=== PATIENT | female | born 1945 | race Two or more races ===

== ENCOUNTER 2020-08-23 10:35 | Emergency (ER) | payer MEDICARE, MEDICAID, SELFPAY ==
[2020-08-23 10:43] VITALS: BP 198/97; PULSE 96; RESP 17; TEMP 36.7; O2SAT 99; BMI 29.2
== END 2020-08-23 11:15 | disposition left against medical advice (07) ==
LOC: HO.ED 11:04
PROVIDERS: Emergency Provider Emergency Medicine; PCP Internal Medicine Geriatric Medicine
DX: H92.02 Otalgia, left ear (principal)
CPT/HCPCS: 99281; 99282

== ENCOUNTER 2020-08-26 08:49 | Emergency (ER) | payer MEDICARE, MEDICAID, SELFPAY ==
[2020-08-26 08:57] VITALS: BP 158/80; PULSE 99; RESP 16; TEMP 36.8; O2SAT 97; BMI 27.4
--- NOTE | 2020-08-26 09:17 | ED_ITS ---
HPI - Ear Problem General Chief complaint: Ear Problems Stated complaint: 74-year-old female complaining of left ear pain, she states this is a chronic issue. she denies dizziness, ringing in her ears, trouble hearing, fever or fluid leaking from her ears. She does states she has an appointment in 2 days with an ear nose throat specialist, Dr. Li Time Seen by Provider: 08/26/20 09:33 Related Data Home Medications Medication Instructions Recorded Confirmed alprazolam 0.5 mg PO TID PRN 08/09/20 08/09/20 aripiprazole 2 mg PO BEDTIME 08/09/20 08/09/20 aspirin 81 mg PO DAILY 08/09/20 08/09/20 cholecalciferol (vitamin D3) 25 mcg PO BID 08/09/20 08/09/20 hydroxyzine HCl 50 mg PO TID PRN 08/09/20 08/09/20 linaclotide 145 mcg PO DAILY 08/09/20 08/09/20 lisinopril 40 mg PO DAILY 08/09/20 08/09/20 metoprolol succinate 50 mg PO DAILY 08/09/20 08/09/20 mirtazapine 45 mg PO BEDTIME 08/09/20 08/09/20 multivitamin 1 cap PO DAILY 08/09/20 08/09/20 omeprazole 20 mg PO DAILY 08/09/20 08/09/20 sertraline 50 mg PO BEDTIME 08/09/20 08/09/20 Allergies Allergy/AdvReac Type Severity Reaction Status Date / Time penicillin G [Penicillin G] Allergy Severe ITCHY/RASH Verified 08/24/20 14:28 Sulfa (Sulfonamide Allergy Severe ITCHY,RASH, Verified 08/24/20 14:28 Antibiotics) rash [Sulfa (Sulfonamides)] trimethoprim [From Bactrim] Allergy Severe HIVES Verified 08/24/20 14:28 penicillin V Allergy Unknown rash Verified 08/24/20 14:28 sulfacetamide Allergy Unknown unknown Verified 08/24/20 14:28 [From Sulfacet-R] sulfur [From Sulfacet-R] Allergy Unknown unknown Verified 08/24/20 14:28 Review of Systems Constitutional: Constitutional: Reports no additional constitutional complaints and Denies headache(s) ENT: Reports system reviewed and no additional complaints, except as documented, Reports as per HPI, Reports Normal hearing present, Denies vertigo, Denies dizziness, Denies ear discharge, Denies headache(s), Denies hearing loss, Denies disequilibrium, Denies tinnitus, Denies sinus pain and Denies sore throat Cardiovascular: Cardiovascular: Reports as per HPI Respiratory: Respiratory: Reports as per HPI and Reports no additional respiratory complaints Neurologic: Reports Normal hearing present, Denies vertigo, Denies dizziness, Denies headache(s) and Denies disequilibrium Allergic/Immunologic: Allergic/Immunologic: Reports no additional allergic/immunologic complaints [facility] Past Medical History Medical History Anxiety Arthritis Dementia High blood pressure Vertigo Surgical History No pertinent past surgical history Social History Social History Alcohol intake: unknown Smoked in Last 30 Days: No Advance Directives: No Advance Directives Information Provided: Yes Physical Exam Vital Signs: Vital Signs: Vital Signs Temp Pulse Resp BP Pulse Ox 08/26/20 08:57 98.2 F 99 16 158/80 H 97 Body Mass Index 27.4 Const: General: cooperative, healthy appearing, no acute distress and anxious Nutritional Appearance: obese Orientation/consciousness: patient oriented x3 HENMT: Head: Yes normal to inspection Ears: external ears normal, TM's normal bilaterally and other ( slight erythema in ear canal of left ear, no infection noted in either ea) General nose exam: Normal external nose present Face and sinus: Yes normal facial exam Mouth: Normal oral and palatal mucosa present Resp: Effort & Inspection: normal respiratory effort and able to speak in complete sentences Neuro: General: patient oriented x3 Cranial nerves: Yes Normal hearing present MDM - Ear MDM Narrative Medical decision making narrative: 74-year-old female presenting with chronic left ear pain, no active infection is noted upon exam. Will give some analgesic ear drops as patient has follow-up with ENT specialist on Friday. Discharge Plan Discharge Clinical Impression: Acute otalgia Qualifiers: Laterality: left Qualified Code(s): H92.02 - Otalgia, left ear Patient Disposition: Home, Self-Care Instructions: Earache (ED) Prescriptions: No Action alprazolam 0.5 mg Tablet 0.5 mg PO TID PRN (Reason: Anxiety) RF: 0 metoprolol succinate 50 mg Tablet Extended Release 24 Hr 50 mg PO DAILY RF: 0 hydroxyzine HCl 50 mg Tablet 50 mg PO TID PRN (Reason: Anxiety) RF: 0 mirtazapine 45 mg Tablet 45 mg PO BEDTIME RF: 0 aspirin 81 mg Tablet 81 mg PO DAILY RF: 0 lisinopril 40 mg Tablet 40 mg PO DAILY RF: 0 multivitamin Capsule 1 cap PO DAILY RF: 0 sertraline 50 mg Tablet 50 mg PO BEDTIME RF: 0 aripiprazole 2 mg Tablet 2 mg PO BEDTIME RF: 0 cholecalciferol (vitamin D3) 25 mcg (1,000 unit) Tablet 25 mcg PO BID RF: 0 omeprazole 20 mg Tablet,Delayed Release (Dr/Ec) 20 mg PO DAILY RF: 0 linaclotide 145 mcg Capsule 145 mcg PO DAILY RF: 0 Referrals: Kody Li [Physician] - 2 days ( please be sure to go to your appointment with ENT doctor on Friday, Dr. Li) Interventions: ED Discharge Assessment Last Done: 08/26/20 09:42 Discharge Date/Time: 08/26/20 09:44 Print Language: Croatian
== END 2020-08-26 09:44 | disposition home or self-care (01) ==
PROVIDERS: Emergency Provider Emergency Medicine; PCP Internal Medicine Geriatric Medicine
DX: H92.02 Otalgia, left ear (principal); I10 Essential (primary) hypertension; F41.9 Anxiety disorder, unspecified; F03.90 Unspecified dementia, unspecified severity, without behavioral disturbance, psychotic disturbance, mood disturbance, and anxiety; Z79.899 Other long term (current) drug therapy
CPT/HCPCS: 99282; 99283

== ENCOUNTER 2020-08-31 10:06 | Emergency (ER) | payer MEDICARE, MEDICAID, SELFPAY ==
[2020-08-31 10:19] VITALS: BP 189/79; PULSE 90; RESP 17; TEMP 35.9; O2SAT 96; BMI 26.6
--- NOTE | 2020-08-31 10:31 | ED_ITS ---
HPI - General Adult General Chief complaint: Ear Problems Stated complaint: SHAKING Time Seen by Provider: 08/31/20 10:19 Source: patient Mode of arrival: ambulatory Limitations: no limitations and language barrier History of Present Illness HPI narrative: 74-year-old female well known to this facility for multiple visits for similar reasons presented today with complaint of hand shaking after drinking coffee and feeling nervous . States she called her therapist [facility] come to the [facility]. States she normally gets Ativan and this helps. She otherwise denies any pain or discomfort. No vision changes. No headache, dizziness. No chest pain or shortness of breath. No recent illness. Otherwise has been at her usual health. Onset (ago): minute(s) Radiation: non-radiation Severity: mild Associated symptoms: denies other symptoms Treatments prior to arrival: none Related Data Home Medications Medication Instructions Recorded Confirmed alprazolam 0.5 mg PO TID PRN 08/09/20 08/09/20 aripiprazole 2 mg PO BEDTIME 08/09/20 08/09/20 aspirin 81 mg PO DAILY 08/09/20 08/09/20 cholecalciferol (vitamin D3) 25 mcg PO BID 08/09/20 08/09/20 hydroxyzine HCl 50 mg PO TID PRN 08/09/20 08/09/20 linaclotide 145 mcg PO DAILY 08/09/20 08/09/20 lisinopril 40 mg PO DAILY 08/09/20 08/09/20 metoprolol succinate 50 mg PO DAILY 08/09/20 08/09/20 mirtazapine 45 mg PO BEDTIME 08/09/20 08/09/20 multivitamin 1 cap PO DAILY 08/09/20 08/09/20 omeprazole 20 mg PO DAILY 08/09/20 08/09/20 sertraline 50 mg PO BEDTIME 08/09/20 08/09/20 Allergies Allergy/AdvReac Type Severity Reaction Status Date / Time penicillin G [Penicillin G] Allergy Severe ITCHY/RASH Verified 08/24/20 14:28 Sulfa (Sulfonamide Allergy Severe ITCHY,RASH, Verified 08/24/20 14:28 Antibiotics) rash [Sulfa (Sulfonamides)] trimethoprim [From Bactrim] Allergy Severe HIVES Verified 08/24/20 14:28 penicillin V Allergy Unknown rash Verified 08/24/20 14:28 sulfacetamide Allergy Unknown unknown Verified 08/24/20 14:28 [From Sulfacet-R] sulfur [From Sulfacet-R] Allergy Unknown unknown Verified 08/24/20 14:28 Review of Systems Review of Systems: Constitutional: No Weight loss, No Fever, No Chills, No Night Sweats, No Fatigue, No Malaise ENT/Mouth: No Hearing loss, No Ear Pain, No Nasal Congestion, No Sinus Pain, No Hoarseness, No sore throat, No Rhinorrhea, No Swallowing Difficulty Eyes: No Eye Pain, No Swelling, No Redness, No Foreign Body, No Discharge, No Vision Changes Cardiovascular: No Chest Pain, No SOB, No Dyspnea on Exertion, No Orthopnea, No Edema, No Palpitations Respiratory: No Cough, No Sputum, No Wheezing, No Smoke Exposure, No Dyspnea Gastrointestinal: No Nausea, No Vomiting, No Diarrhea, No Constipation, No abdominal Pain, No Hematochezia, No Melena Genitourinary: no irregular bleeding, No Dysuria, No Urinary Frequency, No Hematuria, No Urinary Incontinence, No Urgency, No Flank Pain, No Urinary Flow Changes, No Hesitancy Musculoskeletal: No joint pain, No Myalgias, No Joint Swelling Skin: No Skin Lesions, No rash Neuro: No Weakness, No Numbness, No Paresthesias, No Loss of Consciousness, No Dizziness, No Headache Psych: + Anxiety/Panic, No Depression, No SI/HI/AH/VH, No Social Issues Heme/Lymph: No Bruising, No Bleeding,No Lymphadenopathy Endocrine: No Polyuria, No Polydipsia, No Temperature Intolerance Yes all other systems are reviewed and are negative [facility] Past Medical History Attestation statement: The following information was validated with the patient. Medical History Anxiety Arthritis Dementia High blood pressure Vertigo Surgical History No pertinent past surgical history Social History Social History Alcohol intake: unknown Advance Directives: No Advance Directives Information Provided: No Physical Exam Vital Signs: Vital Signs: Vital Signs Temp Pulse Resp BP Pulse Ox 08/31/20 10:19 96.6 F L 90 17 189/79 H 96 Body Mass Index 26.6 Const: General: cooperative and healthy appearing; No acute distress or intoxicated appearing Nutritional Appearance: average body habitus Orientation/consciousness: patient oriented x3 HENMT: Head: Yes normal to inspection Ears: hearing grossly normal bilaterally Eyes: General: appearance normal, both eyes and all related structures Visual West: normal visual west by confrontation Neck: Neck: Yes normal visual inspection and No tender Thyroid: Thyroid normal Chest: Chest palpation & inspection: normal inspection of the chest Resp: Effort & Inspection: normal respiratory effort Cardio: Jugular venous distension: no JVD GI: Inspection: Yes normal to inspection Percussion: Yes normal to percussion Auscultation: normal bowel sounds : General: Yes no CVA tenderness Back/Spine/Pelvis: Back: no CVA tenderness Skin: General skin exam: no rashes or lesions noted Neuro: General: patient oriented x3 Extrem: General: Yes normal to inspection Course Course Course Narrative: Waqar Ruiz reviewed she does take alprazolam head feel for 90 tablets for 30 day supply on the 10 of August. She gets her medication dispense from visiting RN. Offers no other complaints. Given lorazepam here. States she has to go she has got people waiting for her and things to do. Discharge Plan Discharge Clinical Impression: Generalized anxiety disorder with panic attacks Patient Disposition: Home, Self-Care Instructions: Anxiety (ED) Additional Instructions: please follow-up with your primary care doctor Please follow up with therapist at [facility] if any concerns or worsening symptoms Thank you Prescriptions: No Action alprazolam 0.5 mg Tablet 0.5 mg PO TID PRN (Reason: Anxiety) RF: 0 metoprolol succinate 50 mg Tablet Extended Release 24 Hr 50 mg PO DAILY RF: 0 hydroxyzine HCl 50 mg Tablet 50 mg PO TID PRN (Reason: Anxiety) RF: 0 mirtazapine 45 mg Tablet 45 mg PO BEDTIME RF: 0 aspirin 81 mg Tablet 81 mg PO DAILY RF: 0 lisinopril 40 mg Tablet 40 mg PO DAILY RF: 0 multivitamin Capsule 1 cap PO DAILY RF: 0 sertraline 50 mg Tablet 50 mg PO BEDTIME RF: 0 aripiprazole 2 mg Tablet 2 mg PO BEDTIME RF: 0 cholecalciferol (vitamin D3) 25 mcg (1,000 unit) Tablet 25 mcg PO BID RF: 0 omeprazole 20 mg Tablet,Delayed Release (Dr/Ec) 20 mg PO DAILY RF: 0 linaclotide 145 mcg Capsule 145 mcg PO DAILY RF: 0 Referrals: Name,MD Nitin [Primary Care Provider] - 2 days
[2020-08-31] MEDS: LORazepam 0.5 MG TABLET PO (10:35)
== END 2020-08-31 10:40 | disposition home or self-care (01) ==
PROVIDERS: Emergency Provider Emergency Medicine; PCP Internal Medicine Geriatric Medicine
DX: F41.1 Generalized anxiety disorder (principal); F43.0 Acute stress reaction; F41.0 Panic disorder [episodic paroxysmal anxiety]; Z79.899 Other long term (current) drug therapy
CPT/HCPCS: 99283

== ENCOUNTER 2020-09-03 10:26 | Emergency (ER) | payer MEDICARE, MEDICAID, SELFPAY ==
[2020-09-03 10:39] VITALS: BP 180/82; PULSE 83; RESP 18; TEMP 36.3; O2SAT 97; BMI 29.5
--- NOTE | 2020-09-03 11:04 | ECG_ITS ---
Test Reason : CHEST PAIN Blood Pressure : / mmHG Vent. Rate : 078 BPM Atrial Rate : 078 BPM P-R Int : 160 ms QRS Dur : 092 ms QT Int : 380 ms P-R-T Axes : 019 -19 016 degrees QTc Int : 433 ms Normal sinus rhythm Voltage criteria for left ventricular hypertrophy Abnormal ECG When compared with ECG of 07-AUG-2020 01:46, No significant change was found Referred By: Cuco Amador Electronically Signed By:RONY ROCHA MD
--- NOTE | 2020-09-03 11:07 | ED_ITS ---
HPI - General Adult General Chief complaint: General Medical Stated complaint: HEADACHE Time Seen by Provider: 09/03/20 10:44 Source: patient Mode of arrival: ambulatory Limitations: no limitations History of Present Illness HPI narrative: patient presents to ED for anxiety. Patient states her anxiety medications are locked a special containing that can only be open by her PAY[employer] REPRESENTATIVE. Patient states PAYROLL REPRESENTATIVE did not come today so she was not able to get her anxiety medications. Patient has secondary complaint is left shoulder pain that is worsening on movement and radiating down left arm for the past 2 days. Patient denies any trauma, chest pain, shortness of breath, or paralysis. Patient states ringing of the left ear that is chronic for many years and not new. Patient states no dizziness, slurred speech, loss of vision, or paralysis of extremities. Patient states slight headache Related Data Home Medications Medication Instructions Recorded Confirmed alprazolam 0.5 mg PO TID PRN 08/09/20 08/09/20 aripiprazole 2 mg PO BEDTIME 08/09/20 08/09/20 aspirin 81 mg PO DAILY 08/09/20 08/09/20 cholecalciferol (vitamin D3) 25 mcg PO BID 08/09/20 08/09/20 hydroxyzine HCl 50 mg PO TID PRN 08/09/20 08/09/20 linaclotide 145 mcg PO DAILY 08/09/20 08/09/20 lisinopril 40 mg PO DAILY 08/09/20 08/09/20 metoprolol succinate 50 mg PO DAILY 08/09/20 08/09/20 mirtazapine 45 mg PO BEDTIME 08/09/20 08/09/20 multivitamin 1 cap PO DAILY 08/09/20 08/09/20 omeprazole 20 mg PO DAILY 08/09/20 08/09/20 sertraline 50 mg PO BEDTIME 08/09/20 08/09/20 Allergies Allergy/AdvReac Type Severity Reaction Status Date / Time penicillin G [Penicillin G] Allergy Severe ITCHY/RASH Verified 08/24/20 14:28 Sulfa (Sulfonamide Allergy Severe ITCHY,RASH, Verified 08/24/20 14:28 Antibiotics) rash [Sulfa (Sulfonamides)] trimethoprim [From Bactrim] Allergy Severe HIVES Verified 08/24/20 14:28 penicillin V Allergy Unknown rash Verified 08/24/20 14:28 sulfacetamide Allergy Unknown unknown Verified 08/24/20 14:28 [From Sulfacet-R] sulfur [From Sulfacet-R] Allergy Unknown unknown Verified 08/24/20 14:28 Review of Systems Review of Systems: Left shoulder pain going down arm that is worse on movement. Ringing in the ear that has been chronic for years. Slight headache. Patient states no chest pain, shortness of breath, slurred speech, loss of vision, paralysis of extremities, neck stiffness, dizziness, nausea, vomiting, abdominal pain, dysuria, hematuria, or flank pain. Constitutional: Constitutional: Reports as per HPI and Reports no additional constitutional complaints Eyes: Eyes: Reports as per HPI, Reports no additional eye complaints, Denies blind spots, Denies blurry vision, Denies exophthalmos, Denies change in vision, Denies decreased night vision, Denies loss of peripheral vision and Denies loss of vision ENT: Reports system reviewed and no additional complaints, except as documented, Reports as per HPI, Denies Normal hearing present, Denies vertigo, Denies dizziness, Denies dry mouth, Denies ear discharge, Denies facial pain and Denies neck pain Cardiovascular: Cardiovascular: Reports as per HPI, Reports no additional cardiovascular complaints, Denies Abdominal Cramping after Meds, Denies Abd ominal Distension, Denies acrocyanosis, Denies chest pain, Denies chest pain at rest, Denies chest pain with activity, Denies Epigastric Pain and Denies dyspnea Respiratory: Respiratory: Reports as per HPI, Reports no additional respiratory complaints, Denies no additional respiratory complaints, Denies c hange in phlegm color, Denies chest congestion, Denies pain on inspiration, Denies pain with cough and Denies dyspnea Gastrointestinal: Gastrointestinal: Reports as per HPI, Reports no additional gastrointestinal complaints, Denies abdominal pain, Denies belching, Denies melena, Denies bloating, Denies hematochezia, Denies change in stool character, Denies coffee ground emesis, Denies constipation and Denies GI cramping Musculoskeletal: Musculoskeletal: Reports no additional musculoskeletal complaints, Reports as per HPI, Denies abnormal gait, Denies back pain, Denies myalgias, Denies atrophy, Denies deformity, Denies arthralgias, Denies joint swelling, Denies limited range of motion, Denies loss of height, Denies muscle cramps, Denies muscle weakness and Denies neck pain Neurologic: Denies Normal hearing present, Denies abnormal gait, Denies vertigo, Denies dizziness and Denies loss of vision PMFSH Past Medical History Medical History Anxiety Arthritis Dementia High blood pressure Vertigo Surgical History No pertinent past surgical history Social History Social History Alcohol intake: never Smoking Status: Never smoker Use of substances other than those prescribed or required for medical reasons: No Advance Directives: No Advance Directives Information Provided: No Physical Exam Vital Signs: Vital Signs: Vital Signs Temp Pulse Resp BP Pulse Ox 09/03/20 12:27 98.5 F 73 18 170/85 H 09/03/20 10:39 97.3 F 83 18 180/82 H 97 Body Mass Index 29.5 Const: General: cooperative, healthy appearing, comfortable and no acute distress Orientation/consciousness: patient oriented x3 HENMT: Head: Yes normal to inspection Ears: hearing grossly normal bilaterally, external ears normal and TM's normal bilaterally Eyes: General: appearance normal, both eyes and all related structures Neck: Neck: Yes normal visual inspection, Yes full ROM, Yes no lymphadenopathy and Yes no meningeal signs Chest: Chest palpation & inspection: normal inspection of the chest and normal palpation of entire chest wall Resp: Effort & Inspection: normal respiratory effort, able to speak in complete sentences, no audible wheezes and no cough Auscultation: clear to auscultation bilaterally, no crackles, no rales, no rhonchi and no wheezes Cardio: Jugular venous distension: no JVD Heart sounds: S1 normal heart sound present and S2 normal heart sound present GI: Inspection: Yes normal to inspection and No abdominal wall ecchymosis : General: No CVA tenderness and Yes no CVA tenderness Back/Spine/Pelvis: Back: no CVA tenderness, No CVA tenderness and No back tenderness Skin: General skin exam: no rashes or lesions noted Neuro: General: patient oriented x3, no meningeal signs and CN's II-XI intact bilaterally Cranial nerves: Yes CN's II-XII intact bilaterally and No Normal hearing present Extrem: Other: Negative pronator drift. Negative for any facial droop. Patient has range of motion of all extremities. Negative nystagmus General: Yes normal to inspection and Yes full ROM Psych: Other: Anxiety Appearance: grossly normal, well kempt and not disheveled Course Course Course Narrative: patient has chronic tinnitus, ear exam does not indicate otitis media or externa. Patient refused left shoulder x-ray and states her pain is due to arthritis. But due to her age and history of diabetes patient will have EKG and a troponin to mention in the cardiac event. Patient given p.o. Ativan. Head CT not indicdated. negative for any focal deficits. Reevaluation(s) Reevaluation #1: Patient troponin negative. Patient's EKG no new changes. Patient once again refused left shoulder x-ray and states her pain is due to anxiety. Patient informed nusre she feels better and like to be discharged. History physical exam does not indicate stroke or meningitis. Patient is not altered to indicate encephalitis. Tinitus is chronic. Time: 12:27 Reevaluation #2: patient eloped from the ER before receiving her discharge papers. Time: 12:55 Medical Decision Making MDM Narrative Medical decision making narrative: anxiety, arthritic left shoulder pain, tendinitis. Lab Data Result diagrams: 09/03/20 11:41 09/03/20 11:41 Labs: Lab Results 09/03/20 09/03/20 09/03/20 Range/Units 11:41 11:41 11:41 WBC 13.7 H (4.8-10.8) X10*3/uL RBC 4.40 (4.20-5.50) X10*6/uL Hgb 11.7 L (12.0-16.0) g/dl Hct 36.2 L (37-47) % MCV 82.3 (80-98) fL MCH 26.6 L (27.0-33.0) pg MCHC 32.3 (31.0-35.0) g/dl RDW 12.8 (11.0-16.0) % Plt Count 347 (160-400) X10*3/uL MPV 8.4 L (9.4-12.3) fL Immature Gran % (Auto) 0.7 H (0.0-0.4) % Neut % (Auto) 77.2 H (45-73) % Lymph % (Auto) 11.2 L (20-40) % [place] % (Auto) 8.6 (2-11) % Eos % (Auto) 1.9 (0-4) % Baso % (Auto) 0.4 (0-2) % Lymph # (Auto) 1.5 (1.2-4.9) X10*3/uL [place] # (Auto) 1.2 (0.1-1.2) X10*3/uL Eos # (Auto) 0.3 (0.0-0.4) X10*3/uL Baso # (Auto) 0.1 (0.0-0.2) X10*3/uL Abs Immat Gran (auto) 0.10 H (0.00-0.03) X10*3/uL Absolute Neuts (auto) 10.5 H (2.0-8.3) X10*3/uL Absolute Nucleated RBC 0.000 (0.0-0.012) X10*3/uL Nucleated RBC % (auto) 0.0 (0.0-0.2) /100WBC PT 12.7 (10.8-13.0) SEC INR 1.1 (0.9-1.1) APTT 26.3 (24.1-38.0) SEC Sodium 138 (135-145) mmol/L Potassium 3.7 (3.3-5.1) mmol/l Chloride 99 (96-108) mmol/L Carbon Dioxide 30 H (22-29) mmol/L Anion Gap 13 (12-20) BUN 15 (9-16) mg/dL Creatinine 0.87 (0.5-1.4) mg/dL Estim Creat Clear Calc 55.6 Estimated GFR > 60 Random Glucose 95 (60-115) mg/dL Calcium 8.9 (8.4-10.2) mg/dL Total Bilirubin 0.5 (0.0-1.0) mg/dL AST 18 (5-31) U/L ALT 15 (0-31) U/L Alkaline Phosphatase 92 (39-117) U/L Troponin I High Sens (<3.5-17.0) ng/L Total Protein 7.5 (6.5-8.0) g/dL Albumin 4.0 (3.5-5.0) g/dL 09/03/ Range/Units 11:41 WBC (4.8-10.8) X10*3/uL RBC (4.20-5.50) X10*6/uL Hgb (12.0-16.0) g/dl Hct (37-47) % MCV (80-98) fL MCH (27.0-33.0) pg MCHC (31.0-35.0) g/dl RDW (11.0-16.0) % Plt Count (160-400) X10*3/uL MPV (9.4-12.3) fL Immature Gran % (Auto) (0.0-0.4) % Neut % (Auto) (45-73) % Lymph % (Auto) (20-40) % [place] % (Auto) (2-11) % Eos % (Auto) (0-4) % Baso % (Auto) (0-2) % Lymph # (Auto) (1.2-4.9) X10*3/uL [place] # (Auto) (0.1-1.2) X10*3/uL Eos # (Auto) (0.0-0.4) X10*3/uL Baso # (Auto) (0.0-0.2) X10*3/uL Abs Immat Gran (auto) (0.00-0.03) X10*3/uL Absolute Neuts (auto) (2.0-8.3) X10*3/uL Absolute Nucleated RBC (0.0-0.012) X10*3/uL Nucleated RBC % (auto) (0.0-0.2) /100WBC PT (10.8-13.0) SEC INR (0.9-1.1) APTT (24.1-38.0) SEC Sodium (135-145) mmol/L Potassium (3.3-5.1) mmol/l Chloride (96-108) mmol/L Carbon Dioxide (22-29) mmol/L Anion Gap (12-20) BUN (9-16) mg/dL Creatinine (0.5-1.4) mg/dL Estim Creat Clear Calc Estimated GFR Random Glucose (60-115) mg/dL Calcium (8.4-10.2) mg/dL Total Bilirubin (0.0-1.0) mg/dL AST (5-31) U/L ALT (0-31) U/L Alkaline Phosphatase (39-117) U/L Troponin I High Sens < 3.5 (<3.5-17.0) ng/L Total Protein (6.5-8.0) g/dL Albumin (3.5-5.0) g/dL ECG Data Interpretation: Normal sinus rhythm. Ventricular rate 78. MO interval 160, voltage criteria for left ventricular hypertrophy Discharge Plan Discharge Clinical Impression: Generalized anxiety disorder with panic attacks, Arthritis of shoulder Patient Disposition: Elopement Instructions: Anxiety (ED), Arthritis (ED) Additional Instructions: return to the ED for any chest pain, shortness of breath, blurry vision, dizziness, neck stiffness, fever, chills, paralysis of extremities, slurred speech, or any other concerning symptoms. Prescriptions: No Action alprazolam 0.5 mg Tablet 0.5 mg PO TID PRN (Reason: Anxiety) RF: 0 metoprolol succinate 50 mg Tablet Extended Release 24 Hr 50 mg PO DAILY RF: 0 hydroxyzine HCl 50 mg Tablet 50 mg PO TID PRN (Reason: Anxiety) RF: 0 mirtazapine 45 mg Tablet 45 mg PO BEDTIME RF: 0 aspirin 81 mg Tablet 81 mg PO DAILY RF: 0 lisinopril 40 mg Tablet 40 mg PO DAILY RF: 0 multivitamin Capsule 1 cap PO DAILY RF: 0 sertraline 50 mg Tablet 50 mg PO BEDTIME RF: 0 aripiprazole 2 mg Tablet 2 mg PO BEDTIME RF: 0 cholecalciferol (vitamin D3) 25 mcg (1,000 unit) Tablet 25 mcg PO BID RF: 0 omeprazole 20 mg Tablet,Delayed Release (Dr/Ec) 20 mg PO DAILY RF: 0 linaclotide 145 mcg Capsule 145 mcg PO DAILY RF: 0 Referrals: Nitin Echevarria MD [Primary Care Provider] - 2 days ( Anxiety. Left shoulder arthritis exacerbation) Discharge Date/Time: 09/03/20 12:37 Print Language: Palestinian
[2020-09-03] MEDS: Acetaminophen 325 MG TABLET 650 MG PO (11:18)
[2020-09-03] MEDS: LORazepam 1 MG TABLET PO (11:41)
[2020-09-03 11:48] LABS: Basophils Absolute Auto 0.1 X10*3/uL (0.0-0.2); Basophils Percent Auto 0.4 % (0-2); Eosinophils Absolute Auto 0.3 X10*3/uL (0.0-0.4); Eosinophils Percent Auto 1.9 % (0-4); Hematocrit 36.2 % (37-47); Hemoglobin 11.7 g/dl (12.0-16.0); Imm Gran Pct Auto 0.7 % (0.0-0.4); Lymphocytes Absolute Auto 1.5 X10*3/uL (1.2-4.9); Lymphocytes Percent Auto 11.2 % (20-40); MANUAL DIFF FLAG NO; Mean Corpuscular HGB Conc 32.3 g/dl (31.0-35.0); Mean Corpuscular Hemoglobin 26.6 pg (27.0-33.0); Mean Corpuscular Volume 82.3 fL (80-98); Mean Platelet Volume 8.4 fL (9.4-12.3); Monocytes Absolute Auto 1.2 X10*3/uL (0.1-1.2); Monocytes Percent Auto 8.6 % (2-11); Neutrophils Absolute Auto 10.5 X10*3/uL (2.0-8.3); Neutrophils Percent Auto 77.2 % (45-73); Platelet Count 347 X10*3/uL (160-400); Red Cell Distribution Width 12.8 % (11.0-16.0); White Blood Count 13.7 X10*3/uL (4.8-10.8)
[2020-09-03 11:54] LABS: INTERNATIONAL NORM RATIO 1.1 (0.9-1.1); Prothrombin Time 12.7 SEC (10.8-13.0)
[2020-09-03 11:56] LABS: Partial Thromboplastin Time 26.3 SEC (24.1-38.0)
[2020-09-03 12:16] LABS: Alanine Aminotransferase 15 U/L (0-31); Alkaline Phosphatase 92 U/L (39-117); Anion Gap 13 (12-20); Aspartate Amino Transferase 18 U/L (5-31); Bilirubin Total 0.5 mg/dL (0.0-1.0); Blood Urea Nitrogen 15 mg/dL (9-16); Calcium 8.9 mg/dL (8.4-10.2); Carbon Dioxide 30 mmol/L (22-29); Chloride 99 mmol/L (96-108); Creatinine Clr Calc Pharmacy 55.6; Estimated Glomerular Filt Rate > 60; Glucose Random 95 mg/dL (60-115); Potassium 3.7 mmol/l (3.3-5.1); Sodium 138 mmol/L (135-145); Total Protein 7.5 g/dL (6.5-8.0)
[2020-09-03 12:19] LABS: Troponin-I High Sensitivity < 3.5 ng/L (<3.5-17.0)
[2020-09-03 12:27] VITALS: BP 170/85; PULSE 73; RESP 18; TEMP 36.9
== END 2020-09-03 12:37 | disposition left against medical advice (07) ==
PROVIDERS: Physician Assistant; Emergency Provider Emergency Medicine; PCP Internal Medicine Geriatric Medicine
DX: F41.1 Generalized anxiety disorder (principal); F43.0 Acute stress reaction; M19.012 Primary osteoarthritis, left shoulder; R51.9 Headache, unspecified; Z79.899 Other long term (current) drug therapy
CPT/HCPCS: 36415; 80053; 84484; 85025; 85610; 85730; 93005; 99283

== ENCOUNTER 2020-09-16 07:53 | Emergency (ER) | payer MEDICARE, MEDICAID, SELFPAY ==
--- NOTE | 2020-09-16 08:03 | ECG_ITS ---
Test Reason : ANXIETY Blood Pressure : / mmHG Vent. Rate : 083 BPM Atrial Rate : 083 BPM P-R Int : 162 ms QRS Dur : 098 ms QT Int : 382 ms P-R-T Axes : 014 -23 015 degrees QTc Int : 448 ms Normal sinus rhythm Voltage criteria for left ventricular hypertrophy Abnormal ECG When compared with ECG of 03-SEP-2020 11:18, No significant change was found Referred By: Delilah Hernandez Electronically Signed By:RONY ROCHA MD
[2020-09-16 08:06] VITALS: BP 187/92; PULSE 85; RESP 20; TEMP 37.2; O2SAT 100; BMI 26.8
--- NOTE | 2020-09-16 08:15 | PC.NURSE ---
PT NOT FOUND AT BEDSIDE
--- NOTE | 2020-09-16 08:15 | ED.ANXIETY ---
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 Mode of arrival: ambulatory Limitations: no limitations History of Present Illness MD complaint: anxiety Onset (ago): month(s) Symptoms: extremity numbness/tingling Severity: mild Quality: constant Place: home History of similar episodes: Yes Provoking factors: none known Relieving factors: other (ativan) Exacerbating factors: nothing Associated symptoms: denies other symptoms Related Data Home Medications Medication Instructions Recorded Confirmed alprazolam 0.5 mg PO TID PRN 08/09/20 08/09/20 aripiprazole 2 mg PO BEDTIME 08/09/20 08/09/20 aspirin 81 mg PO DAILY 08/09/20 08/09/20 cholecalciferol (vitamin D3) 25 mcg PO BID 08/09/20 08/09/20 hydroxyzine HCl 50 mg PO TID PRN 08/09/20 08/09/20 linaclotide 145 mcg PO DAILY 08/09/20 08/09/20 lisinopril 40 mg PO DAILY 08/09/20 08/09/20 metoprolol succinate 50 mg PO DAILY 08/09/20 08/09/20 mirtazapine 45 mg PO BEDTIME 08/09/20 08/09/20 multivitamin 1 cap PO DAILY 08/09/20 08/09/20 omeprazole 20 mg PO DAILY 08/09/20 08/09/20 sertraline 50 mg PO BEDTIME 08/09/20 08/09/20 Previous Rx's Medication Instructions Recorded escitalopram oxalate 10 mg tablet 10 mg PO DAILY #30 tab 09/06/20 acetaminophen 325 mg PO QID PRN #30 cap 09/16/20 Allergies Allergy/AdvReac Type Severity Reaction Status Date / Time penicillin G [Penicillin G] Allergy Severe ITCHY/RASH Verified 08/24/20 14:28 Sulfa (Sulfonamide Allergy Severe ITCHY,RASH, Verified 08/24/20 14:28 Antibiotics) rash [Sulfa (Sulfonamides)] trimethoprim [From Bactrim] Allergy Severe HIVES Verified 08/24/20 14:28 penicillin V Allergy Unknown rash Verified 08/24/20 14:28 sulfacetamide Allergy Unknown unknown Verified 08/24/20 14:28 [From Sulfacet-R] sulfur [From Sulfacet-R] Allergy Unknown unknown Verified 08/24/20 14:28 Review of Systems Review of Systems: Constitutional : No Fever, No Chills ENT/Mouth : No Ear Pain, No Nasal Congestion, No sore throat Eyes: No Eye Pain, No Swelling, No Redness Cardiovascular : No Chest Pain, No SOB Respiratory : No Cough, No Sputum, No Dyspnea Gastrointestinal : No Nausea, No Vomiting, No Diarrhea, No Hematochezia, No Melena Genitourinary : No Dysuria, No Urinary Frequency, No Hematuria Musculoskeletal : No Myalgias Skin : No Skin Lesions, No rash Neuro : No Weakness, No Numbness, No Paresthesias, No Dizziness, No Headache, states her hands are shaking Psych : positive Anxiety, positive Depression, no SI/HI PMFSH Past Medical History Attestation statement: The following information was validated with the patient. Medical History Anxiety Arthritis Dementia High blood pressure Vertigo Surgical History No pertinent past surgical history Social History Social History Alcohol intake: never Smoking Status: Never smoker Advance Directives: No Advance Directives Information Provided: No Physical Exam Vital Signs: Vital Signs: Last Vital Signs Temp 98.9 F 09/16/20 08:06 Pulse 85 09/16/20 08:06 Resp 20 09/16/20 08:06 BP 187/92 H 09/16/20 08:06 Pulse Ox 100 09/16/20 08:06 Body Mass Index 26.8 Appearance: Alert. Oriented X3. No acute distress. slightly anxious Eyes: Pupils equal, round and reactive to light. ENT: Pharynx normal. Neck: Normal inspection. Neck supple. CVS: Normal heart rate and rhythm. Pulses normal. Respiratory: No respiratory distress. Breath sounds normal. Abdomen: Soft and nontender. Skin: Skin warm and dry. Normal skin color. Normal skin turgor. Extremities: No lower extremity edema. No calf ttp Neuro: Oriented X 3. No motor deficit. No sensory deficit. MDM - Anxiety MDM Narrative Medical decision making narrative: 74 yo female with anxiety here requesting PO ativan because her CRITICAL CARE PHYSICIAN isn't here in the AM yet, also wants script for tylenol, on arrival asking to leave [place] after medications, denies any other complaints Discharge Plan Discharge Clinical Impression: Generalized anxiety disorder with panic attacks Patient Disposition: Home, Self-Care Instructions: Anxiety (ED) Additional Instructions: return to ED for any worsening symptoms or concerns Prescriptions: New acetaminophen 325 mg capsule 325 mg PO QID PRN (Reason: fever or pain) Qty: 30 RF: 0 No Action escitalopram oxalate 10 mg tablet 10 mg PO DAILY Qty: 30 RF: 1 alprazolam 0.5 mg Tablet 0.5 mg PO TID PRN (Reason: Anxiety) RF: 0 metoprolol succinate 50 mg Tablet Extended Release 24 Hr 50 mg PO DAILY RF: 0 hydroxyzine HCl 50 mg Tablet 50 mg PO TID PRN (Reason: Anxiety) RF: 0 mirtazapine 45 mg Tablet 45 mg PO BEDTIME RF: 0 aspirin 81 mg Tablet 81 mg PO DAILY RF: 0 lisinopril 40 mg Tablet 40 mg PO DAILY RF: 0 multivitamin Capsule 1 cap PO DAILY RF: 0 sertraline 50 mg Tablet 50 mg PO BEDTIME RF: 0 aripiprazole 2 mg Tablet 2 mg PO BEDTIME RF: 0 cholecalciferol (vitamin D3) 25 mcg (1,000 unit) Tablet 25 mcg PO BID RF: 0 omeprazole 20 mg Tablet,Delayed Release (Dr/Ec) 20 mg PO DAILY RF: 0 linaclotide 145 mcg Capsule 145 mcg PO DAILY RF: 0 Referrals: Name,MD Nitin [Primary Care Provider] - 2 days (if not better) Print Language: Czech
== END 2020-09-16 08:20 | disposition home or self-care (01) ==
PROVIDERS: Emergency Provider Emergency Medicine; PCP Internal Medicine Geriatric Medicine
DX: F41.1 Generalized anxiety disorder (principal); R51.9 Headache, unspecified; F43.0 Acute stress reaction; Z79.899 Other long term (current) drug therapy
CPT/HCPCS: 93005; 99283

== ENCOUNTER 2020-09-21 13:46 | Emergency (ER) | payer MEDICARE, MEDICAID, SELFPAY ==
--- NOTE | 2020-09-21 14:12 | ED.PSYCH ---
HPI - Psych General Chief Complaint: Anxiety Stated Complaint: fingers numb Time Seen by Provider: 09/21/20 14:08 Source: patient Mode of arrival: ambulatory Limitations: language barrier (Italian-speaking) History of Present Illness HPI Narrative: 74-year-old female presenting to the ED for anxiety. Presents to the ER frequently sometimes multiple times per day in attempts to get more anxiety medications. Patient denies any other symptoms including SI/HI/auditory visual hallucinations or thoughts of self injury. Reports that she feels safe at home. Related Data Home Medications Medication Instructions Recorded Confirmed alprazolam 0.5 mg PO TID PRN 08/09/20 08/09/20 aripiprazole 2 mg PO BEDTIME 08/09/20 08/09/20 aspirin 81 mg PO DAILY 08/09/20 08/09/20 cholecalciferol (vitamin D3) 25 mcg PO BID 08/09/20 08/09/20 hydroxyzine HCl 50 mg PO TID PRN 08/09/20 08/09/20 linaclotide 145 mcg PO DAILY 08/09/20 08/09/20 lisinopril 40 mg PO DAILY 08/09/20 08/09/20 metoprolol succinate 50 mg PO DAILY 08/09/20 08/09/20 mirtazapine 45 mg PO BEDTIME 08/09/20 08/09/20 multivitamin 1 cap PO DAILY 08/09/20 08/09/20 omeprazole 20 mg PO DAILY 08/09/20 08/09/20 sertraline 50 mg PO BEDTIME 08/09/20 08/09/20 Previous Rx's Medication Instructions Recorded escitalopram oxalate 10 mg tablet 10 mg PO DAILY #30 tab 09/06/20 acetaminophen 325 mg PO QID PRN #30 cap 09/16/20 Allergies Allergy/AdvReac Type Severity Reaction Status Date / Time penicillin G [Penicillin G] Allergy Severe ITCHY/RASH Verified 08/24/20 14:28 Sulfa (Sulfonamide Allergy Severe ITCHY,RASH, Verified 08/24/20 14:28 Antibiotics) rash [Sulfa (Sulfonamides)] trimethoprim [From Bactrim] Allergy Severe HIVES Verified 08/24/20 14:28 penicillin V Allergy Unknown rash Verified 08/24/20 14:28 sulfacetamide Allergy Unknown unknown Verified 08/24/20 14:28 [From Sulfacet-R] sulfur [From Sulfacet-R] Allergy Unknown unknown Verified 08/24/20 14:28 Review of Systems Review of Systems: Constitutional : No Fever, No Chills ENT/Mouth : No Ear Pain, No Nasal Congestion, No sore throat Eyes: No Eye Pain, No Swelling, No Redness Cardiovascular : No Chest Pain, No SOB Respiratory : No Cough, No Sputum, No Dyspnea Gastrointestinal : No ingestions, No Nausea, No Vomiting, No Diarrhea, No Hematochezia, No Melena Genitourinary : No Dysuria, No Urinary Frequency, No Hematuria Musculoskeletal : No Myalgias Skin : No Skin Lesions, No rash Neuro : No Weakness, No Numbness, No Paresthesias, No Dizziness, No Headache Psych : + Anxiety, No Depression, No SI, No No thoughts of self injury, No HI, No AVH, Heme/Lymph: No Lymphadenopathy Endocrine : No Polyuria, No Polydipsia Yes all other systems are reviewed and are negative [facility] Past Medical History Attestation statement: The following information was validated with the patient. Medical History Anxiety Arthritis Dementia High blood pressure Vertigo Surgical History No pertinent past surgical history Social History Social History Alcohol intake: never Smoking Status: Never smoker Advance Directives: No Advance Directives Information Provided: Yes Physical Exam Vital Signs: Vital Signs: vital signs have been reviewed as normal and appeared to be correct. Blood pressure normal. Heart rate normal. Respiration rate normal. Temperature normal. Oxygen saturation normal. Appearance: Alert. Oriented X3. No acute distress. Head: Normal external exam. Normocephalic. Atraumatic. No Gomes signs noted. No raccoon eyes noted Eyes: PERRLA. EOMI. Conjunctiva and sclera normal. Eyelids normal. ENT: EAC normal. TM's Normal. Pharynx normal. Uvula midline. Moist mucous membranes. No trismus noted. No drooling noted. No muffled voice noted. Neck: Normal inspection. Neck supple. FROM. No adenopathy. Thyroid Normal. No meningeal signs. No neck mass noted. CVS: Normal heart rate and rhythm. Heart sound normal. No murmurs noted. Pulses normal throughout. Respiratory: No respiratory distress. Painless inspiration. Breath sounds normal. No wheezes/rales/rhonchi noted. Chest nontender. No accessory muscle usage noted or decreased air movement noted. Abdomen: Soft and nontender. Bowel sounds normal in all 4 quadrants. No distention noted. No organomegaly noted. No visible injury noted. Back: No CVA tenderness. Full range of motion noted. Skin: Skin warm and dry. Normal skin color. Normal skin turgor. No rashes/lesions/lacerations noted. Extremities: No lower extremity edema. Extremities exhibit normal range of motion. Extremities nontender. Neuro: Oriented X 3. No motor deficit. No sensory deficit. Reflexes normal. Psych: Appearance grossly normal, well-kept, mental status normal, speech and movement normal, speech clear, patient appears very sad and anxious along with the press. Is cooperative. Normal thought process. Normal thought content. Normal good insight. Judgment good. Course Course Course Narrative: 74-year-old female presenting to the ED asking for anxiety medications. She presents frequently for anxiety medications. Reports she has a VASCULAR TECHNOLOGIST at home who admitted sirs her medications. Feel safe at home. Denies any SI/HI/auditory visual hallucinations and thoughts of self-injury. Will give 0.5 mg of Xanax and then DC home with instructions to return if any new or worsening symptoms to follow-up with primary care provider. Patient understands agrees the plan. MDM - Psych Restraints Face to Face Assessment: Face to Face Assessment: Current Situation: After assessment of the patient, a review of the pertinent medical record and a discussion with nursing staff, I feel the patient requires a restrain intervention. Reaction To: [] Medical Condition: [] Behavioral State: [] Continued Need: [] Medical Records Attestation: I reviewed the patient's medical records. Discharge Plan Discharge Clinical Impression: Generalized anxiety disorder with panic attacks Patient Disposition: Home, Self-Care Instructions: Anxiety (ED) Prescriptions: No Action escitalopram oxalate 10 mg tablet 10 mg PO DAILY Qty: 30 RF: 1 acetaminophen 325 mg capsule 325 mg PO QID PRN (Reason: fever or pain) Qty: 30 RF: 0 alprazolam 0.5 mg Tablet 0.5 mg PO TID PRN (Reason: Anxiety) RF: 0 metoprolol succinate 50 mg Tablet Extended Release 24 Hr 50 mg PO DAILY RF: 0 hydroxyzine HCl 50 mg Tablet 50 mg PO TID PRN (Reason: Anxiety) RF: 0 mirtazapine 45 mg Tablet 45 mg PO BEDTIME RF: 0 aspirin 81 mg Tablet 81 mg PO DAILY RF: 0 lisinopril 40 mg Tablet 40 mg PO DAILY RF: 0 multivitamin Capsule 1 cap PO DAILY RF: 0 sertraline 50 mg Tablet 50 mg PO BEDTIME RF: 0 aripiprazole 2 mg Tablet 2 mg PO BEDTIME RF: 0 cholecalciferol (vitamin D3) 25 mcg (1,000 unit) Tablet 25 mcg PO BID RF: 0 omeprazole 20 mg Tablet,Delayed Release (Dr/Ec) 20 mg PO DAILY RF: 0 linaclotide 145 mcg Capsule 145 mcg PO DAILY RF: 0 Referrals: Name,MD Nitin [Primary Care Provider] - 2 days Print Language: Italian
[2020-09-21 14:15] VITALS: BP 150/65; PULSE 110; RESP 18; TEMP 36.1; O2SAT 97; BMI 27.4
[2020-09-21] MEDS: Acetaminophen 325 MG TABLET 650 MG PO (14:22)
[2020-09-21] MEDS: ALPRAZolam 0.5 MG TABLET PO (14:22)
== END 2020-09-21 14:25 | disposition home or self-care (01) ==
PROVIDERS: Emergency Provider Emergency Medicine; PCP Internal Medicine Geriatric Medicine
DX: F41.1 Generalized anxiety disorder (principal); F43.0 Acute stress reaction; F41.0 Panic disorder [episodic paroxysmal anxiety]; Z79.899 Other long term (current) drug therapy
CPT/HCPCS: 99283

== ENCOUNTER 2020-09-28 04:32 | Emergency (ER) | payer MEDICARE, MEDICAID, SELFPAY ==
[2020-09-28 04:52] VITALS: BP 159/87; PULSE 89; RESP 20; TEMP 36.2; O2SAT 98; BMI 53.6
--- NOTE | 2020-09-28 05:29 | PC.NURSE ---
PT NOT THERE WHEN THIS RN RETURNED TO CHECK IN.
--- NOTE | 2020-09-28 05:30 | ED_ITS ---
HPI - Ear Problem General Chief complaint: Ear Problems Stated complaint: EAR PAIN Time Seen by Provider: 09/28/20 05:29 Source: patient Mode of arrival: ambulatory Limitations: no limitations History of Present Illness HPI Narrative: This is a 75-year-old female known to this emergency department for recurrent visits and complaints ear pain but this is not associated with fevers, chills, loss of hearing, tinnitus, dizziness. In addition, patient states that she is feeling a little anxious because of her symptoms and would like a little something . Related Data Home Medications Medication Instructions Recorded Confirmed alprazolam 0.5 mg PO TID PRN 08/09/20 08/09/20 aripiprazole 2 mg PO BEDTIME 08/09/20 08/09/20 aspirin 81 mg PO DAILY 08/09/20 08/09/20 cholecalciferol (vitamin D3) 25 mcg PO BID 08/09/20 08/09/20 hydroxyzine HCl 50 mg PO TID PRN 08/09/20 08/09/20 linaclotide 145 mcg PO DAILY 08/09/20 08/09/20 lisinopril 40 mg PO DAILY 08/09/20 08/09/20 metoprolol succinate 50 mg PO DAILY 08/09/20 08/09/20 mirtazapine 45 mg PO BEDTIME 08/09/20 08/09/20 multivitamin 1 cap PO DAILY 08/09/20 08/09/20 omeprazole 20 mg PO DAILY 08/09/20 08/09/20 sertraline 50 mg PO BEDTIME 08/09/20 08/09/20 Previous Rx's Medication Instructions Recorded escitalopram oxalate 10 mg tablet 10 mg PO DAILY #30 tab 09/06/20 acetaminophen 325 mg PO QID PRN #30 cap 09/16/20 Allergies Allergy/AdvReac Type Severity Reaction Status Date / Time penicillin G [Penicillin G] Allergy Severe ITCHY/RASH Verified 08/24/20 14:28 Sulfa (Sulfonamide Allergy Severe ITCHY,RASH, Verified 08/24/20 14:28 Antibiotics) rash [Sulfa (Sulfonamides)] trimethoprim [From Bactrim] Allergy Severe HIVES Verified 08/24/20 14:28 penicillin V Allergy Unknown rash Verified 08/24/20 14:28 sulfacetamide Allergy Unknown unknown Verified 08/24/20 14:28 [From Sulfacet-R] sulfur [From Sulfacet-R] Allergy Unknown unknown Verified 08/24/20 14:28 Review of Systems Review of Systems: Pertinent positives and negatives as stated in HPI 10 point review of systems otherwise negative. [facility] Past Medical History Source: nursing notes reviewed Medical History Anxiety Arthritis Dementia High blood pressure Vertigo Surgical History No pertinent past surgical history Social History Social History Alcohol intake: never Smoking Status: Never smoker Advance Directives: No Advance Directives Information Provided: No Physical Exam Vital Signs: Vital Signs: Last Vital Signs Temp 97.1 F 09/28/20 04:52 Pulse 89 09/28/20 04:52 Resp 20 09/28/20 04:52 BP 159/87 H 09/28/20 04:52 Pulse Ox 98 09/28/20 04:52 Body Mass Index 53.6 VITAL SIGNS: Reviewed. GENERAL: Well developed, well nourished, in no acute distress. HEAD: Normocephalic/atraumatic, EYES: PERRLA, EOMI intact without pain, no nystagmus/pallor/icterus noted EARS: Ext canals without abnormality, TMs non-bulging and non-erythematous NOSE: Nares patent bilateral OROPHARYNX: no oral lesions noted, posterior pharynx clear and non-erythematous without noted tonsillar enlargement/erythema/exudates NECK: Supple, no adenopathy LUNGS: Normal breath sounds. No adventitious sounds or accessory muscle use. SpO2<98> CARDIOVASCULAR: Regular rate and rhythm without noted murmurs, no JVD or lower extremity edema. ABDOMEN: Soft, non-tender, non-distended with bowel sounds. No rigidity. No guarding. No palpable masses or hernias noted MUSCULOSKELETAL: No tenderness, deformities, or effusions noted on gross inspection. EXTREMITIES: No cyanosis, clubbing or edema. SKIN: Inspection of the skin reveals no rashes, ulcerations, jaundice, pallor, or petechiae. NEUROLOGIC: Alert and oriented x 4. Strength and sensation to light touch were grossly intact x 4. Course Course Course Narrative: This is a 75-year-old female with history clinical presentation consistent with likely viral etiology the absence of being febrile and there are no concerns for neurologic etiologies for the ear pain. Discharge Plan Discharge Clinical Impression: Ear pain Patient Disposition: Elopement Prescriptions: No Action escitalopram oxalate 10 mg tablet 10 mg PO DAILY Qty: 30 RF: 1 acetaminophen 325 mg capsule 325 mg PO QID PRN (Reason: fever or pain) Qty: 30 RF: 0 alprazolam 0.5 mg Tablet 0.5 mg PO TID PRN (Reason: Anxiety) RF: 0 metoprolol succinate 50 mg Tablet Extended Release 24 Hr 50 mg PO DAILY RF: 0 hydroxyzine HCl 50 mg Tablet 50 mg PO TID PRN (Reason: Anxiety) RF: 0 mirtazapine 45 mg Tablet 45 mg PO BEDTIME RF: 0 aspirin 81 mg Tablet 81 mg PO DAILY RF: 0 lisinopril 40 mg Tablet 40 mg PO DAILY RF: 0 multivitamin Capsule 1 cap PO DAILY RF: 0 sertraline 50 mg Tablet 50 mg PO BEDTIME RF: 0 aripiprazole 2 mg Tablet 2 mg PO BEDTIME RF: 0 cholecalciferol (vitamin D3) 25 mcg (1,000 unit) Tablet 25 mcg PO BID RF: 0 omeprazole 20 mg Tablet,Delayed Release (Dr/Ec) 20 mg PO DAILY RF: 0 linaclotide 145 mcg Capsule 145 mcg PO DAILY RF: 0 Discharge Date/Time: 09/28/20 05:31
== END 2020-09-28 05:31 | disposition left against medical advice (07) ==
PROVIDERS: Emergency Provider Student in an Organized Health Care Education/Training Program; PCP Internal Medicine Geriatric Medicine
DX: H92.03 Otalgia, bilateral (principal); Z79.899 Other long term (current) drug therapy
CPT/HCPCS: 99283

== ENCOUNTER 2020-09-28 08:50 | Emergency (ER) | payer MEDICARE, MEDICAID, SELFPAY | END 2020-09-28 10:05 | disposition left against medical advice (07) | PROVIDERS: Emergency Provider Emergency Medicine; PCP Internal Medicine Geriatric Medicine | DX: R42 Dizziness and giddiness (principal) | CPT/HCPCS: 99281 ==

== ENCOUNTER 2020-09-30 04:03 | Emergency (ER) | payer MEDICARE, MEDICAID, SELFPAY ==
[2020-09-30 04:07] VITALS: BP 164/78; PULSE 81; RESP 18; TEMP 37.4; O2SAT 99; BMI 22.0
--- NOTE | 2020-09-30 04:31 | ED.GENADULT ---
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 Mode of arrival: ambulatory Limitations: no limitations History of Present Illness complaint: chronic dizziness and ringing in ear Onset (ago): year(s) Location: head Radiation: non-radiation Severity: moderate Relieving factors: none Exacerbating factors: none Associated symptoms: other (states her 4 fingers on her L hand feel tingling but she can move them just fine - states this happened yesterday) Treatments prior to arrival: other (took her antivert and ear drops) Related Data Home Medications Medication Instructions Recorded Confirmed alprazolam 0.5 mg PO TID PRN 08/09/20 08/09/20 aripiprazole 2 mg PO BEDTIME 08/09/20 08/09/20 cholecalciferol (vitamin D3) 25 mcg PO BID 08/09/20 08/09/20 hydroxyzine HCl 50 mg PO TID PRN 08/09/20 08/09/20 linaclotide 145 mcg PO DAILY 08/09/20 08/09/20 lisinopril 40 mg PO DAILY 08/09/20 08/09/20 mirtazapine 45 mg PO BEDTIME 08/09/20 08/09/20 multivitamin 1 cap PO DAILY 08/09/20 08/09/20 omeprazole 20 mg PO DAILY 08/09/20 08/09/20 sertraline 50 mg PO BEDTIME 08/09/20 08/09/20 Previous Rx's Medication Instructions Recorded escitalopram oxalate 10 mg tablet 10 mg PO DAILY #30 tab 09/06/20 acetaminophen 325 mg PO QID PRN #30 cap 09/16/20 aspirin 81 mg tablet,delayed 81 mg PO BEDTIME #90 tab 09/28/20 release metoprolol succinate 50 mg 50 mg PO DAILY #90 tab 09/28/20 tablet,extended release 24 hr Allergies Allergy/AdvReac Type Severity Reaction Status Date / Time penicillin G [Penicillin G] Allergy Severe ITCHY/RASH Verified 09/30/20 04:44 Sulfa (Sulfonamide Allergy Severe ITCHY,RASH, Verified 09/30/20 04:44 Antibiotics) rash [Sulfa (Sulfonamides)] trimethoprim [From Bactrim] Allergy Severe HIVES Verified 09/30/20 04:44 penicillin V Allergy Unknown rash Verified 09/30/20 04:44 sulfacetamide Allergy Unknown unknown Verified 09/30/20 04:44 [From Sulfacet-R] sulfur [From Sulfacet-R] Allergy Unknown unknown Verified 09/30/20 04:44 Review of Systems Review of Systems: Constitutional : No Weight loss, No Fever, No Chills ENT/Mouth : No sore throat, No Rhinorrhea Eyes: No Eye Pain, No Swelling Cardiovascular : no Chest Pain, no SOB, no Dyspnea on Exertion, No Orthopnea, No Edema, No Palpitations Respiratory : No Cough, No Sputum Gastrointestinal : no Nausea, No Vomiting, No Diarrhea, No abdominal Pain, No Hematochezia, No Melena Genitourinary : No Dysuria, No Urinary Frequency Musculoskeletal : No joint pain, No Myalgias, No Joint Swelling Skin : No Skin Lesions, No rash Neuro : No Weakness, pos Numbness, pos Dizziness, No Headache Psych : No Anxiety/Panic, No Depression Heme/Lymph: No Bruising, No Lymphadenopathy Endocrine : No Polyuria, No Polydipsia All other systems reviewed and are negative [facility] Past Medical History Attestation statement: The following information was validated with the patient. Medical History Anxiety Arthritis Dementia High blood pressure Vertigo Surgical History No pertinent past surgical history Social History Social History Alcohol intake: never Smoking Status: Never smoker Advance Directives: No Physical Exam Vital Signs: Vital Signs: Last Vital Signs Temp 99.4 F 09/30/20 04:07 Pulse 81 09/30/20 04:07 Resp 18 09/30/20 04:07 BP 164/78 H 09/30/20 04:07 Pulse Ox 99 09/30/20 04:07 Body Mass Index 22.0 Appearance: Alert. Oriented X3. No acute distress. Eyes: Pupils equal, round and reactive to light. ENT: Pharynx normal. L ear no perforation, chronic scarring noted, not bulging, almost retracted Neck: Normal inspection. Neck supple. CVS: Normal heart rate and rhythm. Pulses normal. Respiratory: No respiratory distress. Breath sounds normal. Abdomen: Soft and nontender. Skin: Skin warm and dry. Normal skin color. Normal skin turgor. Extremities: No lower extremity edema. No calf ttp Neuro: Oriented X 3. No motor deficit. No sensory deficit. steady gait, no ataxia Course Course Course Narrative: patient with negative workup at this time, stable for DC asking for sleeping pills again she is 75 yo and is already on benzodiazepines, atarax - does not need any more sedating drugs at this time Medical Decision Making MDM Narrative Medical decision making narrative: 75 yo female with chronic ear issues/infections vertigo and dementia comes in with c/o chronic dizziness and ringing in her ears for years - no change from baseline and she is taking her antivert and ear drops, she also c/o L hand tingling but she is NV intact, she has normal gait no ataxia, she agrees to labs and urine sample at this time, patient is chronically seen in ED for various complaints and generally either LWTs or elopes from the ED. I doubt a stroke at this time given her c/o L hand tingling in just her 4 fingertips with a normal exam. Lab Data Result diagrams: 09/30/20 04:36 09/30/20 04:36 Labs: Lab Results 09/30/20 09/30/20 09/30/20 Range/Units 04:36 04:36 04:53 WBC 8.6 (4.8-10.8) X10*3/uL RBC 4.39 (4.20-5.50) X10*6/uL Hgb 11.6 L (12.0-16.0) g/dl Hct 35.9 L (37-47) % MCV 81.8 (80-98) fL MCH 26.4 L (27.0-33.0) pg MCHC 32.3 (31.0-35.0) g/dl RDW 13.7 (11.0-16.0) % Plt Count 341 (160-400) X10*3/uL MPV 8.3 L (9.4-12.3) fL Immature Gran % (Auto) 0.4 (0.0-0.4) % Neut % (Auto) 63.7 (45-73) % Lymph % (Auto) 26.2 (20-40) % [place] % (Auto) 8.3 (2-11) % Eos % (Auto) 0.7 (0-4) % Baso % (Auto) 0.7 (0-2) % Lymph # (Auto) 2.2 (1.2-4.9) X10*3/uL [place] # (Auto) 0.7 (0.1-1.2) X10*3/uL Eos # (Auto) 0.1 (0.0-0.4) X10*3/uL Baso # (Auto) 0.1 (0.0-0.2) X10*3/uL Abs Immat Gran (auto) 0.03 (0.00-0.03) X10*3/uL Absolute Neuts (auto) 5.5 (2.0-8.3) X10*3/uL Absolute Nucleated RBC 0.000 (0.0-0.012) X10*3/uL Nucleated RBC % (auto) 0.0 (0.0-0.2) /100WBC Sodium 134 L (135-145) mmol/L Potassium 3.9 (3.3-5.1) mmol/l Chloride 97 (96-108) mmol/L Carbon Dioxide 29 (22-29) mmol/L Anion Gap 12 (12-20) BUN 22 H (9-16) mg/dL Creatinine 1.02 (0.5-1.4) mg/dL Estim Creat Clear Calc 46.6 Estimated GFR 53 Random Glucose 113 (60-115) mg/dL Calcium 8.9 (8.4-10.2) mg/dL Urine Color YELLOW Urine Appearance CLEAR Urine pH 6.0 (5.0-8.0) Ur Specific [place] 1.025 (1.005-1.025) Urine Protein NEG (NEG-TRACE) MG/DL Urine Glucose (UA) NEG (NEG) MG/DL Urine Ketones NEG (NEG) MG/DL Urine Blood NEG (NEG) Urine Nitrite NEG (NEG) Ur Leukocyte Esterase TRACE H (NEG) Urine RBC 0-2 (0) /HPF Urine WBC 0-2 (0-4) /HPF Ur Squamous Epith Cells TRACE /LPF Urine Bacteria TRACE /LPF Discharge Plan Discharge Clinical Impression: Dizziness Patient Disposition: Home, Self-Care Instructions: Dizziness (ED) Additional Instructions: return to ED for any worsening symptoms or concerns Prescriptions: No Action escitalopram oxalate 10 mg tablet 10 mg PO DAILY Qty: 30 RF: 1 metoprolol succinate 50 mg tablet extended release 24 hr 50 mg PO DAILY Qty: 90 RF: 2 aspirin 81 mg tablet,delayed release (DR/EC) 81 mg PO BEDTIME Qty: 90 RF: 2 acetaminophen 325 mg capsule 325 mg PO QID PRN (Reason: fever or pain) Qty: 30 RF: 0 alprazolam 0.5 mg Tablet 0.5 mg PO TID PRN (Reason: Anxiety) RF: 0 hydroxyzine HCl 50 mg Tablet 50 mg PO TID PRN (Reason: Anxiety) RF: 0 mirtazapine 45 mg Tablet 45 mg PO BEDTIME RF: 0 lisinopril 40 mg Tablet 40 mg PO DAILY RF: 0 multivitamin Capsule 1 cap PO DAILY RF: 0 sertraline 50 mg Tablet 50 mg PO BEDTIME RF: 0 aripiprazole 2 mg Tablet 2 mg PO BEDTIME RF: 0 cholecalciferol (vitamin D3) 25 mcg (1,000 unit) Tablet 25 mcg PO BID RF: 0 omeprazole 20 mg Tablet,Delayed Release (Dr/Ec) 20 mg PO DAILY RF: 0 linaclotide 145 mcg Capsule 145 mcg PO DAILY RF: 0 Referrals: Name,MD Nitin [Primary Care Provider] - 2 days (if not better)
--- NOTE | 2020-09-30 04:40 | PC.NURSE ---
PATIENT RAMBLING ABOUT VARIOUS TOPICS IN A DISORGANIZED THOUGHT PROCESS. PATIENT IS COOPERATIVE WITH STAFF AT THIS TIME. PATIENT STATES I DON'T WANT TO GO UPSTAIRS AND GET LOCKED IN A ROOM . DISCUSSED PLAN TO OBTAIN IV ACCESS AND DRAW LABS. PT REPORTS C/O VERTIGO, LEFT FINGERS 'TINGLING',AND LEFT EAR RINGING . STATES THAT SHE TOOK A LITTLE YELLOW PILL FOR DIZZINESS AT 1AM . ?[employer] AND [employer] MARKER AT BEDSIDE DURING THIS INTERACTION. PT ATTEMPTED TO PROVIDE URINE SPECIMEN WITHOUT SUCCESS, WILL CONTINUE TO MONITOR.
[2020-09-30 04:41] LABS: Basophils Absolute Auto 0.1 X10*3/uL (0.0-0.2); Basophils Percent Auto 0.7 % (0-2); Eosinophils Absolute Auto 0.1 X10*3/uL (0.0-0.4); Eosinophils Percent Auto 0.7 % (0-4); Hematocrit 35.9 % (37-47); Hemoglobin 11.6 g/dl (12.0-16.0); Imm Gran Abs Auto 0.03 X10*3/uL (0.00-0.03); Imm Gran Pct Auto 0.4 % (0.0-0.4); Lymphocytes Absolute Auto 2.2 X10*3/uL (1.2-4.9); Lymphocytes Percent Auto 26.2 % (20-40); Mean Corpuscular HGB Conc 32.3 g/dl (31.0-35.0); Mean Corpuscular Hemoglobin 26.4 pg (27.0-33.0); Mean Corpuscular Volume 81.8 fL (80-98); Mean Platelet Volume 8.3 fL (9.4-12.3); Monocytes Absolute Auto 0.7 X10*3/uL (0.1-1.2); Monocytes Percent Auto 8.3 % (2-11); Neutrophils Absolute Auto 5.5 X10*3/uL (2.0-8.3); Neutrophils Percent Auto 63.7 % (45-73); Platelet Count 341 X10*3/uL (160-400); Red Blood Count 4.39 X10*6/uL (4.20-5.50); Red Cell Distribution Width 13.7 % (11.0-16.0); White Blood Count 8.6 X10*3/uL (4.8-10.8)
[2020-09-30 04:43] LABS: MANUAL DIFF FLAG NO
--- NOTE | 2020-09-30 04:49 | CT_ITS ---
EXAMINATION: CT HEAD WITHOUT CONTRAST CLINICAL INFORMATION: Left hand tingling, dizziness COMPARISON: 05/16/2020 TECHNIQUE: Contiguous axial imaging was performed from the skull base to vertex without intravenous administration of contrast. This CT examination was performed using dose optimization techniques as appropriate, variously including the following: *Automated exposure control *Adjustment of mA and/or kV according to patient size (this includes techniques or standardized protocols for targeted exams where dose is matched to indication/reason for exam; i.e. extremities or head) *Use of iterative reconstruction technique DLP: 730 mGy-cm FINDINGS: There is no evidence of acute intracranial hemorrhage or territorial infarction. No abnormal mass effect or midline shift is seen. Chatterjee to white matter differentiation is well preserved. No extra-axial fluid collections are identified. The ventricles are normal in size. There is no abnormal attenuation within the brain parenchyma. The osseous structures and soft tissues are normal. The mastoid air cells and visualized portions of the paranasal sinuses are well aerated. CT/CT head/brain wo con IMPRESSION: No acute intracranial pathology.
[2020-09-30 05:00] LABS: Glucose Urine UA NEG (NEG); Leukocyte Esterase Urine TRACE (NEG); Nitrite Urine NEG (NEG); Specific Gravity - Urine 1.025 (1.005-1.025); Urine Blood NEG (NEG); Urine Ketones NEG (NEG); Urine Protein NEG (NEG-TRACE)
[2020-09-30 05:02] LABS: Anion Gap 12 (12-20); Blood Urea Nitrogen 22 mg/dL (9-16); Calcium 8.9 mg/dL (8.4-10.2); Carbon Dioxide 29 mmol/L (22-29); Chloride 97 mmol/L (96-108); Creatinine Clr Calc Pharmacy 46.6; Estimated Glomerular Filt Rate 53; Glucose Random 113 mg/dL (60-115); Potassium 3.9 mmol/l (3.3-5.1); Sodium 134 mmol/L (135-145)
[2020-09-30 05:04] LABS: Appearance Urine CLEAR; Color Urine YELLOW
[2020-09-30 05:08] LABS: Bacteria Urine TRACE /LPF; RBC Urine 0-2 /HPF (0); Squamous Epithelial Cell Urine TRACE /LPF; WBC Urine 0-2 /HPF (0-4)
--- NOTE | 2020-09-30 05:46 | PC.NURSE ---
PATIENT REQUESTING MEDICATION FOR MY FEELINGS AND BEHAVIOR . PLUG SHAPER HAND AT BEDSIDE. AWARE, REFUSED MED ORDER. PATIENT AWARE/NOTIFIED, STATES OKAY! . PATIENT DISCHARGED HOME, STATED GOD BLESS YOU ALL! YOU'RE SO [facility]! [facility]! AMBULATED WITH STEADY GAIT OUT OF ED.
== END 2020-09-30 05:48 | disposition home or self-care (01) ==
PROVIDERS: Emergency Provider Emergency Medicine; PCP Internal Medicine Geriatric Medicine
DX: R51.9 Headache, unspecified (principal); R42 Dizziness and giddiness; H93.13 Tinnitus, bilateral; Z79.899 Other long term (current) drug therapy
CPT/HCPCS: 36415; 70450; 80048; 81001; 85025; 87086; 99283; 99284

== ENCOUNTER 2020-10-07 07:35 | Emergency (ER) | payer MEDICARE, MEDICAID, SELFPAY ==
[2020-10-07 07:42] VITALS: BP 170/72; PULSE 88; RESP 18; TEMP 36.8; O2SAT 99; BMI 25.8
--- NOTE | 2020-10-07 07:44 | ED.GENADULT ---
HPI - General Adult General Chief complaint: General Medical Stated complaint: numbness Time Seen by Provider: 10/07/20 07:44 Source: patient Mode of arrival: ambulatory Limitations: no limitations History of Present Illness HPI narrative: patient with frequent ED visits for anxiety comes here for nonspecific numbness Of both hands fingers for last week for 3 weeks, asking for Klonopin as she ran out of it, feels anxious no focal deficit Related Data Home Medications Medication Instructions Recorded Confirmed alprazolam 0.5 mg PO TID PRN 08/09/20 08/09/20 aripiprazole 2 mg PO BEDTIME 08/09/20 08/09/20 cholecalciferol (vitamin D3) 25 mcg PO BID 08/09/20 08/09/20 hydroxyzine HCl 50 mg PO TID PRN 08/09/20 08/09/20 linaclotide 145 mcg PO DAILY 08/09/20 08/09/20 lisinopril 40 mg PO DAILY 08/09/20 08/09/20 mirtazapine 45 mg PO BEDTIME 08/09/20 08/09/20 multivitamin 1 cap PO DAILY 08/09/20 08/09/20 omeprazole 20 mg PO DAILY 08/09/20 08/09/20 sertraline 50 mg PO BEDTIME 08/09/20 08/09/20 Previous Rx's Medication Instructions Recorded escitalopram oxalate 10 mg tablet 10 mg PO DAILY #30 tab 09/06/20 acetaminophen 325 mg PO QID PRN #30 cap 09/16/20 aspirin 81 mg tablet,delayed 81 mg PO BEDTIME #90 tab 09/28/20 release metoprolol succinate 50 mg 50 mg PO DAILY #90 tab 09/28/20 tablet,extended release 24 hr Allergies Allergy/AdvReac Type Severity Reaction Status Date / Time penicillin G [Penicillin G] Allergy Severe ITCHY/RASH Verified 09/30/20 04:44 Sulfa (Sulfonamide Allergy Severe ITCHY,RASH, Verified 09/30/20 04:44 Antibiotics) rash [Sulfa (Sulfonamides)] trimethoprim [From Bactrim] Allergy Severe HIVES Verified 09/30/20 04:44 penicillin V Allergy Unknown rash Verified 09/30/20 04:44 sulfacetamide Allergy Unknown unknown Verified 09/30/20 04:44 [From Sulfacet-R] sulfur [From Sulfacet-R] Allergy Unknown unknown Verified 09/30/20 04:44 Review of Systems Review of Systems: REVIEW OF SYSTEMS: Pertinent positives and negatives are stated above in the history. GEN: no fevers, chills, fatigue HEENT: no nasal congestion, sore throat, ear pain NEURO: no headache, dizziness, focal weakness PULM: no cough, shortness of breath CV: no chest pain, palpitations, LE edema ABD: no abdominal pain, nausea, vomiting, diarrhea : no dysuria, urgency, frequency SKIN: no rash ROS otherwise negative x 10 [facility] Past Medical History Medical History Anxiety Arthritis Dementia High blood pressure Vertigo Surgical History No pertinent past surgical history Social History Social History Alcohol intake: never Smoking Status: Never smoker Smoked in Last 30 Days: No Use of substances other than those prescribed or required for medical reasons: No Advance Directives: No Advance Directives Information Provided: No Physical Exam Vital Signs: Vital Signs: Last Vital Signs Temp 98.3 F 10/07/20 07:42 Pulse 88 10/07/20 07:42 Resp 18 10/07/20 07:42 BP 170/72 H 10/07/20 07:42 Pulse Ox 99 10/07/20 07:42 Body Mass Index 25.8 Appearance: Alert. Oriented X3. No acute distress. anxious Eyes: Pupils equal, round and reactive to light. ENT: Pharynx normal. Neck: Normal inspection. Neck supple. CVS: Normal heart rate and rhythm. Pulses normal. Respiratory: No respiratory distress. Breath sounds normal. Abdomen: Soft and nontender. Skin: Skin warm and dry. Normal skin color. Normal skin turgor. Extremities: No lower extremity edema. Good range of movement Neuro: Oriented X 3. No motor deficit. No sensory deficit. good handgrip no cervical pain normal sensation to touch and pain Discharge Plan Discharge Clinical Impression: Generalized anxiety disorder with panic attacks Patient Disposition: Home, Self-Care Instructions: Anxiety (ED) Additional Instructions: take only prescribed doses of your medications. Follow-up with your primary care doctor Prescriptions: No Action escitalopram oxalate 10 mg tablet 10 mg PO DAILY Qty: 30 RF: 1 metoprolol succinate 50 mg tablet extended release 24 hr 50 mg PO DAILY Qty: 90 RF: 2 aspirin 81 mg tablet,delayed release (DR/EC) 81 mg PO BEDTIME Qty: 90 RF: 2 acetaminophen 325 mg capsule 325 mg PO QID PRN (Reason: fever or pain) Qty: 30 RF: 0 alprazolam 0.5 mg Tablet 0.5 mg PO TID PRN (Reason: Anxiety) RF: 0 hydroxyzine HCl 50 mg Tablet 50 mg PO TID PRN (Reason: Anxiety) RF: 0 mirtazapine 45 mg Tablet 45 mg PO BEDTIME RF: 0 lisinopril 40 mg Tablet 40 mg PO DAILY RF: 0 multivitamin Capsule 1 cap PO DAILY RF: 0 sertraline 50 mg Tablet 50 mg PO BEDTIME RF: 0 aripiprazole 2 mg Tablet 2 mg PO BEDTIME RF: 0 cholecalciferol (vitamin D3) 25 mcg (1,000 unit) Tablet 25 mcg PO BID RF: 0 omeprazole 20 mg Tablet,Delayed Release (Dr/Ec) 20 mg PO DAILY RF: 0 linaclotide 145 mcg Capsule 145 mcg PO DAILY RF: 0 Interventions: ED Discharge Assessment Last Done: 10/07/20 08:02 Discharge Date/Time: 10/07/20 08:06
[2020-10-07] MEDS: clonazePAM 1 MG TABLET PO (08:05)
== END 2020-10-07 08:06 | disposition home or self-care (01) ==
PROVIDERS: Emergency Provider Internal Medicine; PCP Internal Medicine Geriatric Medicine
DX: F41.0 Panic disorder [episodic paroxysmal anxiety] (principal); R20.0 Anesthesia of skin; F41.1 Generalized anxiety disorder; F43.0 Acute stress reaction; Z79.899 Other long term (current) drug therapy
CPT/HCPCS: 99283

== ENCOUNTER 2020-10-12 14:10 | Outpatient (REF) | payer MEDICARE, MEDICAID, SELFPAY | END 2020-10-12 14:11 | disposition home or self-care (01) | LOC: HO.LAB 14:10 | PROVIDERS: Visit Provider Internal Medicine | DX: Z20.828 Contact with and (suspected) exposure to other viral communicable diseases (principal) | CPT/HCPCS: C9803; U0003 ==

== ENCOUNTER 2020-10-13 08:49 | Emergency (ER) | payer MEDICARE, MEDICAID, SELFPAY ==
[2020-10-13 08:53] VITALS: BP 151/75; PULSE 97; RESP 18; TEMP 36.2; O2SAT 99; BMI 30.9
--- NOTE | 2020-10-13 08:55 | PC.NURSE ---
S/P TRIAGE AND PT REASSURED VITALS WERE GOOD, PT STATES I HAVE TO GO NOW THEN PT ENCOURAGED TO STAY FOR EVAL.
--- NOTE | 2020-10-13 09:29 | ED.ANXIETY ---
HPI - Anxiety General Chief Complaint: Anxiety <SARA Chris Last Filed: 10/13/20 09:39> Stated Complaint: anxiety <SARA Chris Last Filed: 10/13/20 09:39> Time Seen by Provider: 10/13/20 09:24 <SARA Chris Last Filed: 10/13/20 09:39> Source: patient <SARA Chris Last Filed: 10/13/20 09:39> Mode of arrival: ambulatory <SARA Chris Last Filed: 10/13/20 09:39> Limitations: no limitations <SARA Chris Last Filed: 10/13/20 09:39> History of Present Illness HPI narrative: 75 yo female with history of anxiety and frequent ER visits for anxiety presents for evaluation of her breathing. She states she lives at home where someone has been diagnosed with COVID-19. They are self-isolating in another room and she has no close exposure with them. Patient denies all symptoms of COVID-19. <SARA Chris - Last Filed: 10/13/20 09:39> MD complaint: anxiety <SARA Chris Last Filed: 10/13/20 09:39> Related Data Home Medications: Home Medications Medication Instructions Recorded Confirmed alprazolam 0.5 mg PO TID PRN 08/09/20 08/09/20 aripiprazole 2 mg PO BEDTIME 08/09/20 08/09/20 cholecalciferol (vitamin D3) 25 mcg PO BID 08/09/20 08/09/20 hydroxyzine HCl 50 mg PO TID PRN 08/09/20 08/09/20 linaclotide 145 mcg PO DAILY 08/09/20 08/09/20 lisinopril 40 mg PO DAILY 08/09/20 08/09/20 mirtazapine 45 mg PO BEDTIME 08/09/20 08/09/20 multivitamin 1 cap PO DAILY 08/09/20 08/09/20 omeprazole 20 mg PO DAILY 08/09/20 08/09/20 sertraline 50 mg PO BEDTIME 08/09/20 08/09/20 Previous Rx's Medication Instructions Recorded escitalopram oxalate 10 mg tablet 10 mg PO DAILY #30 tab 09/06/20 acetaminophen 325 mg PO QID PRN #30 cap 09/16/20 aspirin 81 mg tablet,delayed 81 mg PO BEDTIME #90 tab 09/28/20 release metoprolol succinate 50 mg 50 mg PO DAILY #90 tab 09/28/20 tablet,extended release 24 hr <SARA Chris Last Filed: 10/13/20 09:39> Allergies/Adverse Reactions: Allergies Allergy/AdvReac Type Severity Reaction Status Date / Time penicillin G [Penicillin G] Allergy Severe ITCHY/RASH Verified 09/30/20 04:44 Sulfa (Sulfonamide Allergy Severe ITCHY,RASH, Verified 09/30/20 04:44 Antibiotics) rash [Sulfa (Sulfonamides)] trimethoprim [From Bactrim] Allergy Severe HIVES Verified 09/30/20 04:44 penicillin V Allergy Unknown rash Verified 09/30/20 04:44 sulfacetamide Allergy Unknown unknown Verified 09/30/20 04:44 [From Sulfacet-R] sulfur [From Sulfacet-R] Allergy Unknown unknown Verified 09/30/20 04:44 <SARA Chris Last Filed: 10/13/20 09:39> Review of Systems Review of Systems: Constitutional: No Fever, No Chills ENT/Mouth: No sore throat, No Rhinorrhea Eyes: No Eye Pain, No Swelling, No Redness Cardiovascular: No Chest Pain, No SOB Respiratory: No Cough, No Sputum, No Wheezing, No dyspnea Gastrointestinal: No Nausea, No Vomiting, No Diarrhea, No abdominal Pain Musculoskeletal: No joint pain, No Myalgias Skin: No Skin Lesions, No rash Neuro: No Headache Psych: + Anxiety/Panic, No Depression <SARA hCris Last Filed: 10/13/20 09:39> [facility] Past Medical History Attestation statement: The following information was validated with the patient. <SARA Chris Last Filed: 10/13/20 09:39> Medical History: Medical History Anxiety Arthritis Dementia High blood pressure Vertigo <SARA Chris Last Filed: 10/13/20 09:39> Surgical History: Surgical History No pertinent past surgical history <SARA Chris - Last Filed: 10/13/20 09:39> Social History Social History: Social History Alcohol intake: unknown Smoking Status: Smoker, status unknown Smoked in Last 30 Days: Yes Advance Directives: No Advance Directives Information Provided: No <SARA Chris - Last Filed: 10/13/20 09:39> Physical Exam Vital Signs: Vital Signs: Last Vital Signs Temp 97.2 F 10/13/20 08:53 Pulse 97 10/13/20 08:53 Resp 18 10/13/20 08:53 BP 151/75 H 10/13/20 08:53 Pulse Ox 99 10/13/20 08:53 Body Mass Index 30.9 Appearance: Alert. Oriented X3. No acute distress. ENT: Pharynx normal. Neck: Normal inspection. Neck supple. CVS: Normal heart rate and rhythm. Pulses normal. Respiratory: No respiratory distress. Breath sounds normal. Skin: Skin warm and dry. Normal skin color. Normal skin turgor. No rashes. Extremities: No lower extremity edema. Neuro: Oriented X 3. Non-focal <SARA Chris - Last Filed: 10/13/20 09:39> Vital Signs: Last Vital Signs Temp 97.2 F 10/13/20 08:53 Pulse 97 10/13/20 08:53 Resp 18 10/13/20 08:53 BP 151/75 H 10/13/20 08:53 Pulse Ox 99 10/13/20 08:53 Body Mass Index 30.9 <Scott Fernandez MD - Last Filed: 11/03/20 08:33> Course Course Course Narrative: 75 y/o female presents with anxiety in relation to COVID-19. She wants her breathing assessed. She is afebrile and vitally stable on arrival with SpO2 99. Lungs CTAB. Denies all symptoms of COVID-19. Discussed self-monitoring for symptoms at home given her possible exposure. She does not have symptoms at this time, no indication for testing. She is requesting medication for anxiety. Discussed the importance of taking meds as prescribed and not taking extra doses. She agrees. Will f/u with PCP. <Esperanza Renschler, PA - Last Filed: 10/13/20 09:39> I have reviewed the chart <Scott Fernandez MD - Last Filed: 11/03/20 08:33> MDM - Anxiety Medical Records Attestation: I reviewed the patient's medical records. <SARA Chris - Last Filed: 10/13/20 09:39> Critical Care Time Critical Care Time Critical Care Time: No <SARA Chris Last Filed: 10/13/20 09:39> Discharge Plan Discharge Clinical Impression: Acute anxiety <SARA Chris Last Filed: 10/13/20 09:39> Patient Disposition: Home, Self-Care <SARA Chris Last Filed: 10/13/20 09:39> Instructions: Generalized Anxiety Disorder (ED), Anxiety (ED) <SARA Chris - Last Filed: 10/13/20 09:39> Additional Instructions: Take all of your anxiety medications as prescribed by your doctor. If you develop signs or symptoms of COVID-19, call your doctor. If you develop difficult breathing, shortness of breath or chest pain, call 911 or come back to the ER for further evaluation. <SARA Chris Last Filed: 10/13/20 09:39> Prescriptions: No Action escitalopram oxalate 10 mg tablet 10 mg PO DAILY Qty: 30 RF: 1 metoprolol succinate 50 mg tablet extended release 24 hr 50 mg PO DAILY Qty: 90 RF: 2 aspirin 81 mg tablet,delayed release (DR/EC) 81 mg PO BEDTIME Qty: 90 RF: 2 acetaminophen 325 mg capsule 325 mg PO QID PRN (Reason: fever or pain) Qty: 30 RF: 0 alprazolam 0.5 mg Tablet 0.5 mg PO TID PRN (Reason: Anxiety) RF: 0 hydroxyzine HCl 50 mg Tablet 50 mg PO TID PRN (Reason: Anxiety) RF: 0 mirtazapine 45 mg Tablet 45 mg PO BEDTIME RF: 0 lisinopril 40 mg Tablet 40 mg PO DAILY RF: 0 multivitamin Capsule 1 cap PO DAILY RF: 0 sertraline 50 mg Tablet 50 mg PO BEDTIME RF: 0 aripiprazole 2 mg Tablet 2 mg PO BEDTIME RF: 0 cholecalciferol (vitamin D3) 25 mcg (1,000 unit) Tablet 25 mcg PO BID RF: 0 omeprazole 20 mg Tablet,Delayed Release (Dr/Ec) 20 mg PO DAILY RF: 0 linaclotide 145 mcg Capsule 145 mcg PO DAILY RF: 0 <SARA Chris - Last Filed: 10/13/20 09:39> Interventions: ED Discharge Assessment Last Done: 10/13/20 09:34 <SARA Chris - Last Filed: 10/13/20 09:39> Discharge Date/Time: 10/13/20 09:34 <SARA Chris - Last Filed: 10/13/20 09:39>
--- NOTE | 2020-10-13 09:34 | PC.NURSE ---
SEEN BY PROVIDER. DC W/O INTERVENTIONS
== END 2020-10-13 09:34 | disposition home or self-care (01) ==
PROVIDERS: Emergency Provider Emergency Medicine; PCP Internal Medicine Geriatric Medicine
DX: F41.1 Generalized anxiety disorder (principal); Z79.899 Other long term (current) drug therapy
CPT/HCPCS: 99283

== ENCOUNTER 2020-10-14 08:42 | Emergency (ER) | payer MEDICARE, MEDICAID, SELFPAY ==
[2020-10-14 08:57] VITALS: BP 133/80; PULSE 92; RESP 13; TEMP 36.6; O2SAT 99; BMI 27.4
--- NOTE | 2020-10-14 09:24 | ED.ANXIETY ---
HPI - Anxiety General Chief Complaint: Anxiety Stated Complaint: EAR PAIN Time Seen by Provider: 10/14/20 09:24 History of Present Illness HPI narrative: patient who has been to the ER many many times for anxiety comes today that she has someone in her home was COVID positive she is very anxious she might have it she was tested several days ago and test results are pending, she has no COVID symptoms, no cough no fever no body aches no fatigue no runny nose, she does say that her left ear often hurts, this is not new and her complaints are anxiety that she might have COVID and left ear pain Related Data Home Medications Medication Instructions Recorded Confirmed alprazolam 0.5 mg PO TID PRN 08/09/20 08/09/20 aripiprazole 2 mg PO BEDTIME 08/09/20 08/09/20 cholecalciferol (vitamin D3) 25 mcg PO BID 08/09/20 08/09/20 hydroxyzine HCl 50 mg PO TID PRN 08/09/20 08/09/20 linaclotide 145 mcg PO DAILY 08/09/20 08/09/20 lisinopril 40 mg PO DAILY 08/09/20 08/09/20 mirtazapine 45 mg PO BEDTIME 08/09/20 08/09/20 multivitamin 1 cap PO DAILY 08/09/20 08/09/20 omeprazole 20 mg PO DAILY 08/09/20 08/09/20 sertraline 50 mg PO BEDTIME 08/09/20 08/09/20 Previous Rx's Medication Instructions Recorded escitalopram oxalate 10 mg tablet 10 mg PO DAILY #30 tab 09/06/20 acetaminophen 325 mg PO QID PRN #30 cap 09/16/20 aspirin 81 mg tablet,delayed 81 mg PO BEDTIME #90 tab 09/28/20 release metoprolol succinate 50 mg 50 mg PO DAILY #90 tab 09/28/20 tablet,extended release 24 hr Allergies Allergy/AdvReac Type Severity Reaction Status Date / Time penicillin G [Penicillin G] Allergy Severe ITCHY/RASH Verified 09/30/20 04:44 Sulfa (Sulfonamide Allergy Severe ITCHY,RASH, Verified 09/30/20 04:44 Antibiotics) rash [Sulfa (Sulfonamides)] trimethoprim [From Bactrim] Allergy Severe HIVES Verified 09/30/20 04:44 penicillin V Allergy Unknown rash Verified 09/30/20 04:44 sulfacetamide Allergy Unknown unknown Verified 09/30/20 04:44 [From Sulfacet-R] sulfur [From Sulfacet-R] Allergy Unknown unknown Verified 09/30/20 04:44 Review of Systems Review of Systems: there is no fever no chills no headache no dizziness no weakness no chest pain no cough no runny nose no difficulty breathing, no sore throat, no nausea vomiting or diarrhea, no abdominal pain Yes all other systems are reviewed and are negative [facility] Past Medical History Source: nursing notes reviewed Medical History Anxiety Arthritis Dementia High blood pressure Vertigo Surgical History No pertinent past surgical history Social History Social History Alcohol intake: never Smoking Status: Never smoker Advance Directives: No Advance Directives Information Provided: No Physical Exam Vital Signs: Vital Signs: Last Vital Signs Temp 98 F 10/14/20 08:57 Pulse 92 10/14/20 08:57 Resp 13 10/14/20 08:57 BP 133/80 10/14/20 08:57 Pulse Ox 99 10/14/20 08:57 Body Mass Index 27.4 patient is cooperative, a and O x3, no distress Head is normocephalic atraumatic the eyes pupils equal round reactive to light extraocular motions intact Ear exam the tympanic membranes on both right and left were normal color and intact, canal was not swollen, no pain with movement of the ears The neck is supple The chest is clear to auscultation bilaterally with full symmetrical equal breath sounds The heart no obvious murmur The abdomen soft nontender Extremities for range of motion x4 Skin no rash Neuro no focal deficit, conversation and gait are normal Course Course Course Narrative: patient is reassured that ear exam is normal and dad she has no dangerous COVID symptoms A COVID test was done and she is advised to follow with primary doctor and all prescriptions need to come from primary doctor Discharge Plan Discharge Clinical Impression: Anxiety Patient Disposition: Home, Self-Care Additional Instructions: Your COVID test result is not back we will call you in 1-2 days Return any time if worse All prescriptions for anxiety need to come from your primary doctor Prescriptions: No Action escitalopram oxalate 10 mg tablet 10 mg PO DAILY Qty: 30 RF: 1 metoprolol succinate 50 mg tablet extended release 24 hr 50 mg PO DAILY Qty: 90 RF: 2 aspirin 81 mg tablet,delayed release (DR/EC) 81 mg PO BEDTIME Qty: 90 RF: 2 acetaminophen 325 mg capsule 325 mg PO QID PRN (Reason: fever or pain) Qty: 30 RF: 0 alprazolam 0.5 mg Tablet 0.5 mg PO TID PRN (Reason: Anxiety) RF: 0 hydroxyzine HCl 50 mg Tablet 50 mg PO TID PRN (Reason: Anxiety) RF: 0 mirtazapine 45 mg Tablet 45 mg PO BEDTIME RF: 0 lisinopril 40 mg Tablet 40 mg PO DAILY RF: 0 multivitamin Capsule 1 cap PO DAILY RF: 0 sertraline 50 mg Tablet 50 mg PO BEDTIME RF: 0 aripiprazole 2 mg Tablet 2 mg PO BEDTIME RF: 0 cholecalciferol (vitamin D3) 25 mcg (1,000 unit) Tablet 25 mcg PO BID RF: 0 omeprazole 20 mg Tablet,Delayed Release (Dr/Ec) 20 mg PO DAILY RF: 0 linaclotide 145 mcg Capsule 145 mcg PO DAILY RF: 0 Interventions: ED Discharge Assessment Last Done: 10/14/20 09:48 Discharge Date/Time: 10/14/20 09:57
[2020-10-14] MEDS: LORazepam 0.5 MG TABLET PO (09:48)
== END 2020-10-14 09:57 | disposition home or self-care (01) ==
PROVIDERS: Emergency Provider Emergency Medicine Emergency Medical Services; PCP Internal Medicine Geriatric Medicine
DX: F41.9 Anxiety disorder, unspecified (principal); H92.02 Otalgia, left ear
CPT/HCPCS: 99283

== ENCOUNTER 2020-10-15 12:06 | Emergency (ER) | payer MEDICARE, MEDICAID, SELFPAY ==
--- NOTE | 2020-10-15 08:08 | ECG_ITS ---
Test Reason : PAPITATIONS Blood Pressure : / mmHG Vent. Rate : 091 BPM Atrial Rate : 091 BPM P-R Int : 162 ms QRS Dur : 094 ms QT Int : 360 ms P-R-T Axes : 039 -19 046 degrees QTc Int : 442 ms Sinus rhythm with marked sinus arrhythmia Moderate voltage criteria for LVH, may be normal variant Borderline ECG When compared with ECG of 16-SEP-2020 08:09, No significant change was found Referred By: Michael Mckenzie Electronically Signed By:ZANDRA ENNIS
[2020-10-15 12:12] VITALS: BP 153/79; PULSE 92; RESP 20; TEMP 36.8; O2SAT 99; BMI 22.8
--- NOTE | 2020-10-15 12:14 | ED_ITS ---
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 rate of 92 sinus palpitation noticed patient been here yesterday and day before yesterday for same MD complaint: skipped beats Duration: intermittent Severity: mild Context: occurred during rest Related Data Home Medications Medication Instructions Recorded Confirmed alprazolam 0.5 mg PO TID PRN 08/09/20 08/09/20 aripiprazole 2 mg PO BEDTIME 08/09/20 08/09/20 cholecalciferol (vitamin D3) 25 mcg PO BID 08/09/20 08/09/20 hydroxyzine HCl 50 mg PO TID PRN 08/09/20 08/09/20 linaclotide 145 mcg PO DAILY 08/09/20 08/09/20 lisinopril 40 mg PO DAILY 08/09/20 08/09/20 mirtazapine 45 mg PO BEDTIME 08/09/20 08/09/20 multivitamin 1 cap PO DAILY 08/09/20 08/09/20 omeprazole 20 mg PO DAILY 08/09/20 08/09/20 sertraline 50 mg PO BEDTIME 08/09/20 08/09/20 Previous Rx's Medication Instructions Recorded escitalopram oxalate 10 mg tablet 10 mg PO DAILY #30 tab 09/06/20 acetaminophen 325 mg PO QID PRN #30 cap 09/16/20 aspirin 81 mg tablet,delayed 81 mg PO BEDTIME #90 tab 09/28/20 release metoprolol succinate 50 mg 50 mg PO DAILY #90 tab 09/28/20 tablet,extended release 24 hr Allergies Allergy/AdvReac Type Severity Reaction Status Date / Time penicillin G [Penicillin G] Allergy Severe ITCHY/RASH Verified 09/30/20 04:44 Sulfa (Sulfonamide Allergy Severe ITCHY,RASH, Verified 09/30/20 04:44 Antibiotics) rash [Sulfa (Sulfonamides)] trimethoprim [From Bactrim] Allergy Severe HIVES Verified 09/30/20 04:44 penicillin V Allergy Unknown rash Verified 09/30/20 04:44 sulfacetamide Allergy Unknown unknown Verified 09/30/20 04:44 [From Sulfacet-R] sulfur [From Sulfacet-R] Allergy Unknown unknown Verified 09/30/20 04:44 Review of Systems Review of Systems: REVIEW OF SYSTEMS: Pertinent positives and negatives are stated above in the history. GEN: no fevers, chills, fatigue HEENT: no nasal congestion, sore throat, ear pain NEURO: no headache, dizziness, focal weakness PULM: no cough, shortness of breath CV: no chest pain, LE edema ABD: no abdominal pain, nausea, vomiting, diarrhea : no dysuria, urgency, frequency SKIN: no rash ROS otherwise negative x 10 [facility] Past Medical History Medical History Anxiety Arthritis Dementia High blood pressure Vertigo Surgical History No pertinent past surgical history Social History Social History Alcohol intake: never Smoking Status: Never smoker Advance Directives: No Advance Directives Information Provided: No Physical Exam Vital Signs: Vital Signs: Last Vital Signs Temp 98.3 F 10/15/20 12:12 Pulse 92 10/15/20 12:12 Resp 20 10/15/20 12:12 BP 153/79 H 10/15/20 12:12 Pulse Ox 99 10/15/20 12:12 Body Mass Index 22.8 Appearance: Alert. Oriented X3. No acute distress. anxious Eyes: Pupils equal, round and reactive to light. ENT: Pharynx normal. Neck: Normal inspection. Neck supple. CVS: Normal heart rate and rhythm. Pulses normal. No murmur no ectopic beats heart rate 92 Respiratory: No respiratory distress. Breath sounds normal. Abdomen: Soft and nontender. Skin: Skin warm and dry. Normal skin color. Normal skin turgor. Extremities: No lower extremity edema. Good range of movement Neuro: Oriented X 3. No motor deficit. No sensory deficit. MDM - Arrhythmia/Palpitations ECG Data Attestation: I personally reviewed and interpreted this ECG as follows: ECG interpretation date: 10/15/20 ECG interpretation time: 12:14 Interpretation: Normal sinus rhythm went rate 91 LVH normal intervals and normal axis no acute ST T wave changes Discharge Plan Discharge Clinical Impression: Generalized anxiety disorder with panic attacks Patient Disposition: Home, Self-Care Instructions: Anxiety (ED) Additional Instructions: Continue medication follow with PCP Prescriptions: No Action escitalopram oxalate 10 mg tablet 10 mg PO DAILY Qty: 30 RF: 1 metoprolol succinate 50 mg tablet extended release 24 hr 50 mg PO DAILY Qty: 90 RF: 2 aspirin 81 mg tablet,delayed release (DR/EC) 81 mg PO BEDTIME Qty: 90 RF: 2 acetaminophen 325 mg capsule 325 mg PO QID PRN (Reason: fever or pain) Qty: 30 RF: 0 alprazolam 0.5 mg Tablet 0.5 mg PO TID PRN (Reason: Anxiety) RF: 0 hydroxyzine HCl 50 mg Tablet 50 mg PO TID PRN (Reason: Anxiety) RF: 0 mirtazapine 45 mg Tablet 45 mg PO BEDTIME RF: 0 lisinopril 40 mg Tablet 40 mg PO DAILY RF: 0 multivitamin Capsule 1 cap PO DAILY RF: 0 sertraline 50 mg Tablet 50 mg PO BEDTIME RF: 0 aripiprazole 2 mg Tablet 2 mg PO BEDTIME RF: 0 cholecalciferol (vitamin D3) 25 mcg (1,000 unit) Tablet 25 mcg PO BID RF: 0 omeprazole 20 mg Tablet,Delayed Release (Dr/Ec) 20 mg PO DAILY RF: 0 linaclotide 145 mcg Capsule 145 mcg PO DAILY RF: 0
[2020-10-15] MEDS: LORazepam 0.5 MG TABLET PO (12:43)
== END 2020-10-15 13:00 | disposition home or self-care (01) ==
PROVIDERS: Emergency Provider Internal Medicine; PCP Internal Medicine Geriatric Medicine
DX: R00.2 Palpitations (principal); F41.1 Generalized anxiety disorder; F43.0 Acute stress reaction; Z79.899 Other long term (current) drug therapy
CPT/HCPCS: 93005; 99283

== ENCOUNTER 2020-10-22 08:57 | Emergency (ER) | payer MEDICARE, MEDICAID, SELFPAY ==
[2020-10-22 09:07] VITALS: BP 152/67; PULSE 93; RESP 18; TEMP 37; O2SAT 97; BMI 23.6
--- NOTE | 2020-10-22 09:34 | ED_ITS ---
HPI - General Adult General Chief complaint: Dizziness Stated complaint: dizzy Time Seen by Provider: 10/22/20 09:34 History of Present Illness HPI narrative: Patient complains of a ringing in her left ear and feeling anxiety, the ringing has been going on for many months and the anxiety is chronic, she is not suicidal she has no chest pain no shortness breath no fever Related Data Home Medications Medication Instructions Recorded Confirmed alprazolam 0.5 mg PO TID PRN 08/09/20 08/09/20 aripiprazole 2 mg PO BEDTIME 08/09/20 08/09/20 cholecalciferol (vitamin D3) 25 mcg PO BID 08/09/20 08/09/20 hydroxyzine HCl 50 mg PO TID PRN 08/09/20 08/09/20 linaclotide 145 mcg PO DAILY 08/09/20 08/09/20 lisinopril 40 mg PO DAILY 08/09/20 08/09/20 mirtazapine 45 mg PO BEDTIME 08/09/20 08/09/20 multivitamin 1 cap PO DAILY 08/09/20 08/09/20 omeprazole 20 mg PO DAILY 08/09/20 08/09/20 sertraline 50 mg PO BEDTIME 08/09/20 08/09/20 Previous Rx's Medication Instructions Recorded escitalopram oxalate 10 mg tablet 10 mg PO DAILY #30 tab 09/06/20 acetaminophen 325 mg PO QID PRN #30 cap 09/16/20 aspirin 81 mg tablet,delayed 81 mg PO BEDTIME #90 tab 09/28/20 release metoprolol succinate 50 mg 50 mg PO DAILY #90 tab 09/28/20 tablet,extended release 24 hr Allergies Allergy/AdvReac Type Severity Reaction Status Date / Time penicillin G [Penicillin G] Allergy Severe ITCHY/RASH Verified 09/30/20 04:44 Sulfa (Sulfonamide Allergy Severe ITCHY,RASH, Verified 09/30/20 04:44 Antibiotics) rash [Sulfa (Sulfonamides)] trimethoprim [From Bactrim] Allergy Severe HIVES Verified 09/30/20 04:44 penicillin V Allergy Unknown rash Verified 09/30/20 04:44 sulfacetamide Allergy Unknown unknown Verified 09/30/20 04:44 [From Sulfacet-R] sulfur [From Sulfacet-R] Allergy Unknown unknown Verified 09/30/20 04:44 Review of Systems Review of Systems: Review of systems positive for ringing in the ears and anxiety There is no fever no chills no weakness no confusion no chest pain no cough no shortness of breath no nasal congestion no sore throat no abdominal pain no nausea no vomiting no weakness Yes all other systems are reviewed and are negative [facility] Past Medical History Source: nursing notes reviewed Medical History Anxiety Arthritis Dementia High blood pressure Vertigo Surgical History No pertinent past surgical history Social History Social History Alcohol intake: never Smoking Status: Never smoker Advance Directives: No Advance Directives Information Provided: No Physical Exam Vital Signs: Vital Signs: Last Vital Signs Temp 98.6 F 10/22/20 09:07 Pulse 93 10/22/20 09:07 Resp 18 10/22/20 09:07 BP 152/67 H 10/22/20 09:07 Pulse Ox 97 10/22/20 09:07 Body Mass Index 23.6 Patient is A&O x3, no acute distress Both ears are clear with intact normal colored tympanic membranes, both ear canals are patent There is no sinus tenderness The neck is supple The chest is clear to auscultation bilaterally, no respiratory distress Extremities full range of motion x4 Neuro cranial nerves 2-12 intact as tested, cerebellar is normal, gait is normal and speech was normal Course Course Course Narrative: She is given a 0.5 mg of Ativan for her anxiety and is advised that all prescriptions need to come from primary physician for her chronic anxiety and is discharged Discharge Plan Discharge Clinical Impression: Anxiety Tinnitus Qualifiers: Laterality: left Qualified Code(s): H93.12 - Tinnitus, left ear Patient Disposition: Home, Self-Care Additional Instructions: Follow with primary care and ENT doctors for further evaluation Prescriptions: No Action escitalopram oxalate 10 mg tablet 10 mg PO DAILY Qty: 30 RF: 1 metoprolol succinate 50 mg tablet extended release 24 hr 50 mg PO DAILY Qty: 90 RF: 2 aspirin 81 mg tablet,delayed release (DR/EC) 81 mg PO BEDTIME Qty: 90 RF: 2 acetaminophen 325 mg capsule 325 mg PO QID PRN (Reason: fever or pain) Qty: 30 RF: 0 alprazolam 0.5 mg Tablet 0.5 mg PO TID PRN (Reason: Anxiety) RF: 0 hydroxyzine HCl 50 mg Tablet 50 mg PO TID PRN (Reason: Anxiety) RF: 0 mirtazapine 45 mg Tablet 45 mg PO BEDTIME RF: 0 lisinopril 40 mg Tablet 40 mg PO DAILY RF: 0 multivitamin Capsule 1 cap PO DAILY RF: 0 sertraline 50 mg Tablet 50 mg PO BEDTIME RF: 0 aripiprazole 2 mg Tablet 2 mg PO BEDTIME RF: 0 cholecalciferol (vitamin D3) 25 mcg (1,000 unit) Tablet 25 mcg PO BID RF: 0 omeprazole 20 mg Tablet,Delayed Release (Dr/Ec) 20 mg PO DAILY RF: 0 linaclotide 145 mcg Capsule 145 mcg PO DAILY RF: 0
[2020-10-22] MEDS: LORazepam 0.5 MG TABLET PO (09:50)
== END 2020-10-22 09:55 | disposition home or self-care (01) ==
PROVIDERS: Emergency Provider Emergency Medicine; PCP Internal Medicine Geriatric Medicine
DX: R42 Dizziness and giddiness (principal); F41.9 Anxiety disorder, unspecified; H93.12 Tinnitus, left ear; Z79.899 Other long term (current) drug therapy
CPT/HCPCS: 99283

== ENCOUNTER 2020-10-24 02:56 | Emergency (ER) | payer MEDICARE, MEDICAID, SELFPAY ==
[2020-10-24 03:12] VITALS: BP 179/81; PULSE 76; RESP 18; TEMP 36.6; O2SAT 96; BMI 31.4
--- NOTE | 2020-10-24 04:06 | ED_ITS ---
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 She endorses that she has had a negative COVID-19 test and says that she ran out of her medication ?early? and is now feeling anxious. Related Information Home Medications Medication Instructions Recorded Confirmed alprazolam 0.5 mg PO TID PRN 08/09/20 08/09/20 aripiprazole 2 mg PO BEDTIME 08/09/20 08/09/20 cholecalciferol (vitamin D3) 25 mcg PO BID 08/09/20 08/09/20 hydroxyzine HCl 50 mg PO TID PRN 08/09/20 08/09/20 linaclotide 145 mcg PO DAILY 08/09/20 08/09/20 lisinopril 40 mg PO DAILY 08/09/20 08/09/20 mirtazapine 45 mg PO BEDTIME 08/09/20 08/09/20 multivitamin 1 cap PO DAILY 08/09/20 08/09/20 omeprazole 20 mg PO DAILY 08/09/20 08/09/20 sertraline 50 mg PO BEDTIME 08/09/20 08/09/20 Previous Rx's Medication Instructions Recorded escitalopram oxalate 10 mg tablet 10 mg PO DAILY #30 tab 09/06/20 acetaminophen 325 mg PO QID PRN #30 cap 09/16/20 aspirin 81 mg tablet,delayed 81 mg PO BEDTIME #90 tab 09/28/20 release metoprolol succinate 50 mg 50 mg PO DAILY #90 tab 09/28/20 tablet,extended release 24 hr Allergies Allergy/AdvReac Type Severity Reaction Status Date / Time penicillin G [Penicillin G] Allergy Severe ITCHY/RASH Verified 09/30/20 04:44 Sulfa (Sulfonamide Allergy Severe ITCHY,RASH, Verified 09/30/20 04:44 Antibiotics) rash [Sulfa (Sulfonamides)] trimethoprim [From Bactrim] Allergy Severe HIVES Verified 09/30/20 04:44 penicillin V Allergy Unknown rash Verified 09/30/20 04:44 sulfacetamide Allergy Unknown unknown Verified 09/30/20 04:44 [From Sulfacet-R] sulfur [From Sulfacet-R] Allergy Unknown unknown Verified 09/30/20 04:44 Review of Systems Review of Systems: Pertinent positives and negatives as stated in HPI and 10 point review systems is otherwise negative. [facility] Past Medical History Source: nursing notes reviewed Medical History Anxiety Arthritis Dementia High blood pressure Vertigo Surgical History No pertinent past surgical history Social History Social History Alcohol intake: unknown Smoking Status: Smoker, status unknown Smoked in Last 30 Days: Yes Advance Directives: No Advance Directives Information Provided: No Physical Exam Vital Signs: Vital Signs: Last Vital Signs Temp 97.8 F 10/24/20 03:12 Pulse 76 10/24/20 03:12 Resp 18 10/24/20 03:12 BP 179/81 H 10/24/20 03:12 Pulse Ox 96 10/24/20 03:12 Body Mass Index 31.4 VITAL SIGNS: Reviewed. GENERAL: Well developed, well nourished, in no acute distress. HEAD: Normocephalic/atraumatic, EYES: PERRLA, EOMI intact without pain, no nystagmus/pallor/icterus noted EARS: Ext canals without abnormality, TMs non-bulging and non-erythematous NOSE: Nares patent bilateral OROPHARYNX: no oral lesions noted, posterior pharynx clear and non-erythematous without noted tonsillar enlargement/erythema/exudates NECK: Supple, no adenopathy LUNGS: Normal breath sounds. No adventitious sounds or accessory muscle use. SpO2<96> CARDIOVASCULAR: Regular rate and rhythm without noted murmurs, no JVD or lower extremity edema. ABDOMEN: Soft, non-tender, non-distended with bowel sounds. No rigidity. No guarding. No palpable masses or hernias noted MUSCULOSKELETAL: No tenderness, deformities, or effusions noted on gross inspection. EXTREMITIES: No cyanosis, clubbing or edema. SKIN: Inspection of the skin reveals no rashes, ulcerations, jaundice, pallor, or petechiae. NEUROLOGIC: Alert and oriented x 4. Strength and sensation to light touch were grossly intact x 4. Course Course Course Narrative: This is a 75-year-old female with history and clinical presentation consistent with known anxiety as she has been evaluated here in this emergency department several times. A discussion was held with the patient and it was explained that we would be unable to provide her with the current medication that she is prescribed, but would be willing to provide her with some hydroxyzine and she was agreeable. Patient was thereafter discharged in stable condition as there were no other medical complaints or concerns. Discharge Plan Discharge Clinical Impression: Anxiety Patient Disposition: Home, Self-Care Instructions: Anxiety (ED) Additional Instructions: No dude en regresar a la italo de emergencias si experimenta alg?n empeoramiento de kelsi s?ntomas, sang fiebre, escalofr?os, falta de aire o dificultad para respirar. Steve un seguimiento con clark proveedor de atenci?n primaria llamando al consultorio por la ma?delmy. Prescriptions: No Action escitalopram oxalate 10 mg tablet 10 mg PO DAILY Qty: 30 RF: 1 metoprolol succinate 50 mg tablet extended release 24 hr 50 mg PO DAILY Qty: 90 RF: 2 aspirin 81 mg tablet,delayed release (DR/EC) 81 mg PO BEDTIME Qty: 90 RF: 2 acetaminophen 325 mg capsule 325 mg PO QID PRN (Reason: fever or pain) Qty: 30 RF: 0 alprazolam 0.5 mg Tablet 0.5 mg PO TID PRN (Reason: Anxiety) RF: 0 hydroxyzine HCl 50 mg Tablet 50 mg PO TID PRN (Reason: Anxiety) RF: 0 mirtazapine 45 mg Tablet 45 mg PO BEDTIME RF: 0 lisinopril 40 mg Tablet 40 mg PO DAILY RF: 0 multivitamin Capsule 1 cap PO DAILY RF: 0 sertraline 50 mg Tablet 50 mg PO BEDTIME RF: 0 aripiprazole 2 mg Tablet 2 mg PO BEDTIME RF: 0 cholecalciferol (vitamin D3) 25 mcg (1,000 unit) Tablet 25 mcg PO BID RF: 0 omeprazole 20 mg Tablet,Delayed Release (Dr/Ec) 20 mg PO DAILY RF: 0 linaclotide 145 mcg Capsule 145 mcg PO DAILY RF: 0 Referrals: Nitin Echevarria MD [Primary Care Provider] - 2 days (Re-evaluation for anxiety) Print Language: Romansh
[2020-10-24] MEDS: hydrOXYzine HCL 50 MG TABLET PO (04:18)
== END 2020-10-24 04:22 | disposition home or self-care (01) ==
PROVIDERS: Emergency Provider Student in an Organized Health Care Education/Training Program; PCP Internal Medicine Geriatric Medicine
DX: F41.1 Generalized anxiety disorder (principal); F43.0 Acute stress reaction; Z76.0 Encounter for issue of repeat prescription; Z79.899 Other long term (current) drug therapy
CPT/HCPCS: 99283

== ENCOUNTER 2020-11-22 08:50 | Emergency (ER) | payer MEDICARE, MEDICAID, SELFPAY ==
[2020-11-22 09:13] VITALS: BP 159/89; PULSE 88; RESP 20; TEMP 37.2; O2SAT 95
== END 2020-11-22 10:14 | disposition left against medical advice (07) ==
PROVIDERS: Emergency Provider Emergency Medicine; PCP Internal Medicine Geriatric Medicine
DX: H93.12 Tinnitus, left ear (principal); M25.511 Pain in right shoulder; I10 Essential (primary) hypertension; F41.9 Anxiety disorder, unspecified; F03.90 Unspecified dementia, unspecified severity, without behavioral disturbance, psychotic disturbance, mood disturbance, and anxiety
CPT/HCPCS: 99281; 99282

== ENCOUNTER 2020-11-24 08:01 | Emergency (ER) | payer MEDICARE, MEDICAID, SELFPAY | END 2020-11-24 08:54 | disposition left against medical advice (07) | LOC: HO.ED 08:54 | PROVIDERS: Emergency Provider Emergency Medicine; PCP Internal Medicine Geriatric Medicine | DX: R42 Dizziness and giddiness (principal) ==

== ENCOUNTER 2020-12-02 09:00 | Emergency (ER) | payer MEDICARE, MEDICAID, SELFPAY ==
[2020-12-02 09:06] VITALS: BP 133/79; PULSE 97; RESP 18; TEMP 36; O2SAT 99; BMI 23.6
--- NOTE | 2020-12-02 09:13 | ED.GENADULT ---
HPI - General Adult General Chief complaint: General Medical Stated complaint: bp check Time Seen by Provider: 12/02/20 09:11 Source: patient Mode of arrival: ambulatory Limitations: no limitations History of Present Illness HPI narrative: 75-year-old female presenting to the ED with request to have her blood pressure checked. Denies any other symptoms including any dizziness, headaches, changes in vision, blurry vision, nausea/ vomiting, jaw pain, paresthesias, chest pain or shortness of breath, dyspnea on exertion, orthopnea, palpitations, extremity edema, weakness or any other symptoms complaints or concerns at this time. Related Data Home Medications Medication Instructions Recorded Confirmed alprazolam 0.5 mg PO TID PRN 08/09/20 08/09/20 aripiprazole 2 mg PO BEDTIME 08/09/20 08/09/20 cholecalciferol (vitamin D3) 25 mcg PO BID 08/09/20 08/09/20 hydroxyzine HCl 50 mg PO TID PRN 08/09/20 08/09/20 linaclotide 145 mcg PO DAILY 08/09/20 08/09/20 lisinopril 40 mg PO DAILY 08/09/20 08/09/20 mirtazapine 45 mg PO BEDTIME 08/09/20 08/09/20 multivitamin 1 cap PO DAILY 08/09/20 08/09/20 omeprazole 20 mg PO DAILY 08/09/20 08/09/20 sertraline 50 mg PO BEDTIME 08/09/20 08/09/20 Previous Rx's Medication Instructions Recorded escitalopram oxalate 10 mg tablet 10 mg PO DAILY #30 tab 09/06/20 acetaminophen 325 mg PO QID PRN #30 cap 09/16/20 aspirin 81 mg tablet,delayed 81 mg PO BEDTIME #90 tab 09/28/20 release metoprolol succinate 50 mg 50 mg PO DAILY #90 tab 09/28/20 tablet,extended release 24 hr Allergies Allergy/AdvReac Type Severity Reaction Status Date / Time penicillin G [Penicillin G] Allergy Severe ITCHY/RASH Verified 09/30/20 04:44 Sulfa (Sulfonamide Allergy Severe ITCHY,RASH, Verified 09/30/20 04:44 Antibiotics) rash [Sulfa (Sulfonamides)] trimethoprim [From Bactrim] Allergy Severe HIVES Verified 09/30/20 04:44 penicillin V Allergy Unknown rash Verified 09/30/20 04:44 sulfacetamide Allergy Unknown unknown Verified 09/30/20 04:44 [From Sulfacet-R] sulfur [From Sulfacet-R] Allergy Unknown unknown Verified 09/30/20 04:44 Review of Systems Review of Systems: Constitutional : No Weight loss, No Fever, No Chills, No Night Sweats, No Fatigue, No Malaise ENT/Mouth : No Hearing loss, No Ear Pain, No Nasal Congestion, No Sinus Pain, No Hoarseness, No sore throat, No Rhinorrhea, No Swallowing Difficulty Eyes: No Eye Pain, No Swelling, No Redness, No Foreign Body, No Discharge, No Vision Changes Cardiovascular : No SOB, no Dyspnea on Exertion, No Orthopnea, No Edema, No extremity swelling, No Palpitations Respiratory : No Cough, No Sputum, No Wheezing, No Dyspnea Gastrointestinal : No Nausea, No Vomiting, No Diarrhea, No abdominal Pain, No Hematochezia, No Melena Genitourinary : No irregular bleeding, No Dysuria, No Urinary Frequency, No Hematuria, No Urinary Incontinence, No Urgency, No Flank Pain, No Urinary Flow Changes, No Hesitancy Musculoskeletal : No joint pain, No Myalgias, No Joint Swelling Skin : No Skin Lesions, No rash Neuro : No Weakness, No Numbness, No Paresthesias, No Loss of Consciousness, No Dizziness, No Headache Psych : No Anxiety/Panic, No Depression, No SI/HI/AH/VH Heme/Lymph: No Bruising, No Bleeding,No Lymphadenopathy Endocrine : No Polyuria, No Polydipsia, No Temperature Intolerance Yes all other systems are reviewed and are negative [facility] Past Medical History Attestation statement: The following information was validated with the patient. Medical History Anxiety Arthritis Dementia High blood pressure Vertigo Surgical History No pertinent past surgical history Social History Social History Alcohol intake: unknown Smoking Status: Smoker, status unknown Advance Directives: No Advance Directives Information Provided: No Physical Exam Vital Signs: Vital Signs: Last Vital Signs Temp 96.8 F 12/02/20 09:06 Pulse 97 12/02/20 09:06 Resp 18 12/02/20 09:06 BP 133/79 12/02/20 09:06 Pulse Ox 99 12/02/20 09:06 Body Mass Index 23.6 vital signs have been reviewed as normal and appeared to be correct. Blood pressure normal. Heart rate normal. Respiration rate normal. Temperature normal. Oxygen saturation normal. Appearance: Alert. Oriented X3. No acute distress. Head: Normal external exam. Normocephalic. Atraumatic. Eyes: PERRLA. EOMI. Conjunctiva and sclera normal. Eyelids normal. ENT: Pharynx normal. Uvula midline. Moist mucous membranes. Neck: Normal inspection. Neck supple. FROM. No adenopathy. Thyroid Normal. No meningeal signs. No neck mass noted. CVS: Normal heart rate and rhythm. Heart sound normal. No murmurs noted. Pulses normal throughout. Respiratory: No respiratory distress. Painless inspiration. Breath sounds normal. No wheezes/rales/rhonchi noted. Chest nontender. No accessory muscle usage noted or decreased air movement noted. Back: Full range of motion noted. Skin: Skin warm and dry. Normal skin color. Normal skin turgor. No rashes/lesions/lacerations noted. Extremities: Extremities exhibit normal range of motion. Extremities nontender. Neuro: Oriented X 3. No motor deficit. No sensory deficit. Reflexes normal. Course Course Course Narrative: 75-year-old female presenting to the ED requesting to have her blood pressure checked. Denies any cardiac-related complaints or any additional complaints. Blood pressure within normal limits. Patient requesting to go home at this time. Declining labs or imaging or any other workup. Will DC home with instructions return if any new or worsening symptoms to follow up with primary care provider and to continue her prescribed medications as prescribed. Patient understands agrees the plan. Medical Decision Making Medical Records Medical records reviewed: Yes I reviewed the patient's medical records. Discharge Plan Discharge Clinical Impression: Blood pressure check Patient Disposition: Home, Self-Care Instructions: How to Take a Blood Pressure (ED) Prescriptions: No Action escitalopram oxalate 10 mg tablet 10 mg PO DAILY Qty: 30 RF: 1 metoprolol succinate 50 mg tablet extended release 24 hr 50 mg PO DAILY Qty: 90 RF: 2 aspirin 81 mg tablet,delayed release (DR/EC) 81 mg PO BEDTIME Qty: 90 RF: 2 acetaminophen 325 mg capsule 325 mg PO QID PRN (Reason: fever or pain) Qty: 30 RF: 0 alprazolam 0.5 mg Tablet 0.5 mg PO TID PRN (Reason: Anxiety) RF: 0 hydroxyzine HCl 50 mg Tablet 50 mg PO TID PRN (Reason: Anxiety) RF: 0 mirtazapine 45 mg Tablet 45 mg PO BEDTIME RF: 0 lisinopril 40 mg Tablet 40 mg PO DAILY RF: 0 multivitamin Capsule 1 cap PO DAILY RF: 0 sertraline 50 mg Tablet 50 mg PO BEDTIME RF: 0 aripiprazole 2 mg Tablet 2 mg PO BEDTIME RF: 0 cholecalciferol (vitamin D3) 25 mcg (1,000 unit) Tablet 25 mcg PO BID RF: 0 omeprazole 20 mg Tablet,Delayed Release (Dr/Ec) 20 mg PO DAILY RF: 0 linaclotide 145 mcg Capsule 145 mcg PO DAILY RF: 0 Referrals: Name,MD Nitin [Primary Care Provider] - 2 days Print Language: Honduran
== END 2020-12-02 09:23 | disposition home or self-care (01) ==
PROVIDERS: Emergency Provider Internal Medicine; PCP Internal Medicine Geriatric Medicine
DX: Z01.31 Encounter for examination of blood pressure with abnormal findings (principal); Z79.899 Other long term (current) drug therapy
CPT/HCPCS: 99283

== ENCOUNTER → 2020-12-13 14:02 | Outpatient (BNVA) | payer MEDICARE, MEDICAID, SELFPAY | PROVIDERS: PCP Internal Medicine Geriatric Medicine; Visit Provider Surgery | DX: K59.09 Other constipation (principal) | CPT/HCPCS: 99212 ==

== ENCOUNTER 2020-12-16 07:28 | Emergency (ER) | payer MEDICARE, MEDICAID, SELFPAY ==
[2020-12-16 07:31] VITALS: BP 133/64; PULSE 90; RESP 18; TEMP 36.6; O2SAT 99; BMI 27.4
== END 2020-12-16 08:06 | disposition left against medical advice (07) ==
PROVIDERS: Emergency Provider Emergency Medicine; PCP Internal Medicine Geriatric Medicine
DX: R42 Dizziness and giddiness (principal)
CPT/HCPCS: 99281; 99282

== ENCOUNTER 2020-12-16 08:56 | Emergency (ER) | payer MEDICARE, MEDICAID, SELFPAY ==
[2020-12-16 09:03] VITALS: BP 133/68; PULSE 89; RESP 16; TEMP 36.7; O2SAT 99; BMI 24.2
--- NOTE | 2020-12-16 09:43 | ED_ITS ---
HPI - General Adult General Chief complaint: Dizziness Stated complaint: DIZZY Time Seen by Provider: 12/16/20 09:42 Source: patient Mode of arrival: ambulatory Limitations: no limitations History of Present Illness HPI narrative: States she is having increased anxiety today ran out of her alprazolam which she takes at bedtime if states she is here to get dosed x1. Similar to her previous presentations offers no other complaints of recent illness or pain. Denies any suicidal homicidal ideations. Onset (ago): hour(s) Severity: mild Relieving factors: medication Exacerbating factors: none Treatments prior to arrival: none Related Data Home Medications Medication Instructions Recorded Confirmed alprazolam 0.5 mg PO TID PRN 08/09/20 12/13/20 aripiprazole 2 mg PO BEDTIME 08/09/20 12/13/20 cholecalciferol (vitamin D3) 25 mcg PO BID 08/09/20 12/13/20 hydroxyzine HCl 50 mg PO TID PRN 08/09/20 12/13/20 linaclotide 145 mcg PO DAILY 08/09/20 12/13/20 lisinopril 40 mg PO DAILY 08/09/20 12/13/20 mirtazapine 45 mg PO BEDTIME 08/09/20 12/13/20 multivitamin 1 cap PO DAILY 08/09/20 12/13/20 omeprazole 20 mg PO DAILY 08/09/20 12/13/20 sertraline 50 mg PO BEDTIME 08/09/20 12/13/20 Previous Rx's Medication Instructions Recorded escitalopram oxalate 10 mg tablet 10 mg PO DAILY #30 tab 09/06/20 acetaminophen 325 mg PO QID PRN #30 cap 09/16/20 aspirin 81 mg tablet,delayed 81 mg PO BEDTIME #90 tab 09/28/20 release metoprolol succinate 50 mg 50 mg PO DAILY #90 tab 09/28/20 tablet,extended release 24 hr menthol 0.44 %-zinc oxide 20.6 % 1 appl TOPICAL QID PRN #113 g 12/13/20 topical ointment magnesium citrate 150 ml PO DAILY PRN #296 ml 12/14/20 Allergies Allergy/AdvReac Type Severity Reaction Status Date / Time penicillin G [Penicillin G] Allergy Severe ITCHY/RASH Verified 12/13/20 14:53 Sulfa (Sulfonamide Allergy Severe ITCHY,RASH, Verified 12/13/20 14:53 Antibiotics) rash [Sulfa (Sulfonamides)] trimethoprim [From Bactrim] Allergy Severe HIVES Verified 12/13/20 14:53 penicillin V Allergy Unknown rash Verified 12/13/20 14:53 sulfacetamide Allergy Unknown unknown Verified 12/13/20 14:53 [From Sulfacet-R] sulfur [From Sulfacet-R] Allergy Unknown unknown Verified 12/13/20 14:53 Review of Systems Review of Systems: Constitutional: No Weight loss, No Fever, No Chills, No Night Sweats, No Fatigue, No Malaise ENT/Mouth: No Hearing loss, No Ear Pain, No Nasal Congestion, No Sinus Pain, No Hoarseness, No sore throat, No Rhinorrhea, No Swallowing Difficulty Eyes: No Eye Pain, No Swelling, No Redness, No Foreign Body, No Discharge, No Vision Changes Cardiovascular: No Chest Pain, No SOB, No Dyspnea on Exertion, No Orthopnea, No Edema, No Palpitations Respiratory: No Cough, No Sputum, No Wheezing, No Dyspnea Gastrointestinal: No Nausea, No Vomiting, No Diarrhea, No Constipation, No abdominal Pain, No Hematochezia, No Melena Genitourinary: no irregular bleeding, No Dysuria, No Urinary Frequency, No Hematuria, No Urinary Incontinence, No Urgency, No Flank Pain, No Urinary Flow Changes, No Hesitancy Musculoskeletal: No joint pain, No Myalgias, No Joint Swelling Skin: No Skin Lesions, No rash Neuro: No Weakness, No Numbness, No Paresthesias, No Loss of Consciousness, No Dizziness, No Headache Psych: As noted a per HPI Heme/Lymph: No Bruising, No Bleeding,No Lymphadenopathy Endocrine: No Polyuria, No Polydipsia, No Temperature Intolerance Yes all other systems are reviewed and are negative [facility] Past Medical History Medical History (Updated 12/16/20 @ 09:55 by Lamont Dill NP) Anxiety Arthritis Chronic constipation Dementia High blood pressure Vertigo Surgical History No pertinent past surgical history Social History Social History Alcohol intake: unknown Smoking Status: Smoker, status unknown Advance Directives: No Advance Directives Information Provided: No Physical Exam Vital Signs: Vital Signs: Last Vital Signs Temp 98.0 F 12/16/20 09:03 Pulse 89 12/16/20 09:03 Resp 16 12/16/20 09:03 BP 133/68 12/16/20 09:03 Pulse Ox 99 12/16/20 09:03 Body Mass Index 24.2 Reviewed Const: General: cooperative; No acute distress or intoxicated appearing Nutritional Appearance: average body habitus Orientation/consciousness: patient oriented x3 HENMT: Head: Yes normal to inspection Ears: hearing grossly normal bilaterally Eyes: General: appearance normal, both eyes and all related structures Visual West: normal visual west by confrontation Neck: Neck: Yes normal visual inspection, No positive Brudzinski's sign, No positive Kernig's sign and No tender Thyroid: Thyroid normal Chest: Chest palpation & inspection: normal inspection of the chest Resp: Effort & Inspection: normal respiratory effort Cardio: Jugular venous distension: no JVD Rhythm: regular rhythm Heart sounds: S1 normal heart sound present and S2 normal heart sound present GI: Inspection: Yes normal to inspection Palpation (GI): Firmness to palpation present (GI) Percussion: Yes normal to percussion Auscultation: normal bowel sounds : General: Yes no CVA tenderness Back/Spine/Pelvis: Back: no CVA tenderness Skin: General skin exam: no rashes or lesions noted Neuro: General: patient oriented x3 Extrem: General: Yes normal to inspection Course Course Course Narrative: States she has to go does not want to wait here too long would like to get dose with her or problems am. 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 Will dose her here with 1 dose of 0 press him 0.5 mg no prescriptions for home as potential for misuse/abuse. Otherwise no complaints of pain or discomfort hemodynamically stable. Discharge Plan Discharge Clinical Impression: Generalized anxiety disorder with panic attacks, Medication refill Patient Disposition: Home, Self-Care Instructions: Anxiety (ED) Additional Instructions: Please take medication only as prescribed Follow-up with her primary care doctor Friday Return if any concerns or worsening symptoms Thank you Prescriptions: No Action escitalopram oxalate 10 mg tablet 10 mg PO DAILY Qty: 30 RF: 1 metoprolol succinate 50 mg tablet extended release 24 hr 50 mg PO DAILY Qty: 90 RF: 2 aspirin 81 mg tablet,delayed release (DR/EC) 81 mg PO BEDTIME Qty: 90 RF: 2 acetaminophen 325 mg capsule 325 mg PO QID PRN (Reason: fever or pain) Qty: 30 RF: 0 alprazolam 0.5 mg Tablet 0.5 mg PO TID PRN (Reason: Anxiety) RF: 0 hydroxyzine HCl 50 mg Tablet 50 mg PO TID PRN (Reason: Anxiety) RF: 0 mirtazapine 45 mg Tablet 45 mg PO BEDTIME RF: 0 lisinopril 40 mg Tablet 40 mg PO DAILY RF: 0 multivitamin Capsule 1 cap PO DAILY RF: 0 sertraline 50 mg Tablet 50 mg PO BEDTIME RF: 0 aripiprazole 2 mg Tablet 2 mg PO BEDTIME RF: 0 cholecalciferol (vitamin D3) 25 mcg (1,000 unit) Tablet 25 mcg PO BID RF: 0 omeprazole 20 mg Tablet,Delayed Release (Dr/Ec) 20 mg PO DAILY RF: 0 linaclotide 145 mcg Capsule 145 mcg PO DAILY RF: 0 Calmoseptine 0.44-20.6 % ointment 1 appl topical QID PRN (Reason: skin irritation) Qty: 113 RF: 0 magnesium citrate Solution 150 ml PO DAILY PRN (Reason: constipation) Qty: 296 RF: 0 Referrals: Name,MD Nitin [Primary Care Provider] - 2 days
[2020-12-16] MEDS: ALPRAZolam 0.5 MG TABLET PO (09:47)
--- NOTE | 2020-12-16 10:02 | PC.NURSE ---
pt left without signing paperwork.
== END 2020-12-16 10:03 | disposition home or self-care (01) ==
PROVIDERS: Emergency Provider Emergency Medicine; PCP Internal Medicine Geriatric Medicine
DX: R42 Dizziness and giddiness (principal); F41.1 Generalized anxiety disorder; F43.0 Acute stress reaction; Z79.899 Other long term (current) drug therapy; Z76.0 Encounter for issue of repeat prescription
CPT/HCPCS: 99283

== ENCOUNTER 2020-12-17 07:17 | Emergency (ER) | payer MEDICARE, MEDICAID, SELFPAY | END 2020-12-17 11:36 | disposition left against medical advice (07) | PROVIDERS: Emergency Provider Emergency Medicine; PCP Internal Medicine Geriatric Medicine | DX: I10 Essential (primary) hypertension (principal) ==

== ENCOUNTER 2020-12-25 08:22 | Emergency (ER) | payer MEDICARE, MEDICAID, SELFPAY ==
--- NOTE | 2020-12-25 08:49 | ED.ANXIETY ---
HPI - Anxiety General Stated Complaint: Dizzy Time Seen by Provider: 12/25/20 08:38 Source: patient Mode of arrival: ambulatory Limitations: language barrier (Welsh-speaking) History of Present Illness HPI narrative: 75-year-old female presenting to the ED with complaints of increased anxiety reporting that she ran out of her alprazolam the which she takes at bedtime therefore she has been unable to sleep reports she only gets 21 pills and that is not enough for her. She is here to get 1 dose she came with her PCP who is driving. Denies any other complaints or concerns at this time. Denies any SI/HI/auditory visual hallucinations thoughts of self-injury. Reports she feels safe at home. complaint: anxiety Related Data Home Medications Medication Instructions Recorded Confirmed alprazolam 0.5 mg PO TID PRN 08/09/20 12/13/20 aripiprazole 2 mg PO BEDTIME 08/09/20 12/13/20 cholecalciferol (vitamin D3) 25 mcg PO BID 08/09/20 12/13/20 hydroxyzine HCl 50 mg PO TID PRN 08/09/20 12/13/20 linaclotide 145 mcg PO DAILY 08/09/20 12/13/20 lisinopril 40 mg PO DAILY 08/09/20 12/13/20 mirtazapine 45 mg PO BEDTIME 08/09/20 12/13/20 multivitamin 1 cap PO DAILY 08/09/20 12/13/20 omeprazole 20 mg PO DAILY 08/09/20 12/13/20 sertraline 50 mg PO BEDTIME 08/09/20 12/13/20 Previous Rx's Medication Instructions Recorded escitalopram oxalate 10 mg tablet 10 mg PO DAILY #30 tab 09/06/20 acetaminophen 325 mg PO QID PRN #30 cap 09/16/20 aspirin 81 mg tablet,delayed 81 mg PO BEDTIME #90 tab 09/28/20 release metoprolol succinate 50 mg 50 mg PO DAILY #90 tab 09/28/20 tablet,extended release 24 hr menthol 0.44 %-zinc oxide 20.6 % 1 appl TOPICAL QID PRN #113 g 12/13/20 topical ointment magnesium citrate 150 ml PO DAILY PRN #296 ml 12/14/20 diphenhydramine HCl [Benadryl] 25 mg PO BEDTIME #7 cap 12/25/20 Allergies Allergy/AdvReac Type Severity Reaction Status Date / Time penicillin G [Penicillin G] Allergy Severe ITCHY/RASH Verified 12/13/20 14:53 Sulfa (Sulfonamide Allergy Severe ITCHY,RASH, Verified 12/13/20 14:53 Antibiotics) rash [Sulfa (Sulfonamides)] trimethoprim [From Bactrim] Allergy Severe HIVES Verified 12/13/20 14:53 penicillin V Allergy Unknown rash Verified 12/13/20 14:53 sulfacetamide Allergy Unknown unknown Verified 12/13/20 14:53 [From Sulfacet-R] sulfur [From Sulfacet-R] Allergy Unknown unknown Verified 12/13/20 14:53 Review of Systems Review of Systems: Constitutional : No Fever, No Chills ENT/Mouth : No Ear Pain, No Nasal Congestion, No sore throat Eyes: No Eye Pain, No Swelling, No Redness Cardiovascular : No Chest Pain, No SOB Respiratory : No Cough, No Sputum, No Dyspnea Gastrointestinal : No ingestions, No Nausea, No Vomiting, No Diarrhea, No Hematochezia, No Melena Genitourinary : No Dysuria, No Urinary Frequency, No Hematuria Musculoskeletal : No Myalgias Skin : No Skin Lesions, No rash Neuro : No Weakness, No Numbness, No Paresthesias, No Dizziness, No Headache Psych : + Anxiety, No Depression, No SI/HI, No AVH, No thoughts of self injury Heme/Lymph: No Lymphadenopathy Endocrine : No Polyuria, No Polydipsia Yes all other systems are reviewed and are negative [facility] Past Medical History Attestation statement: The following information was validated with the patient. Medical History Anxiety Arthritis Chronic constipation Dementia High blood pressure Vertigo Surgical History No pertinent past surgical history Social History Social History Alcohol intake: unknown Smoking Status: Smoker, status unknown Advance Directives: No Advance Directives Information Provided: No Physical Exam Vital Signs: Vital Signs: vital signs have been reviewed as normal and appeared to be correct. Blood pressure normal. Heart rate normal. Respiration rate normal. Temperature normal. Oxygen saturation normal. Appearance: Alert. Oriented X3. No acute distress. Head: Normal external exam. Normocephalic. Atraumatic. No Gomes signs noted. No raccoon eyes noted Eyes: PERRLA. EOMI. Conjunctiva and sclera normal. Eyelids normal. ENT: EAC normal. TM's Normal. Pharynx normal. Uvula midline. Moist mucous membranes. No trismus noted. No drooling noted. No muffled voice noted. Neck: Normal inspection. Neck supple. FROM. No adenopathy. Thyroid Normal. No meningeal signs. No neck mass noted. CVS: Normal heart rate and rhythm. Heart sound normal. No murmurs noted. Pulses normal throughout. Respiratory: No respiratory distress. Painless inspiration. Breath sounds normal. No wheezes/rales/rhonchi noted. Chest nontender. No accessory muscle usage noted or decreased air movement noted. Abdomen: Soft and nontender. Bowel sounds normal in all 4 quadrants. No distention noted. No organomegaly noted. No visible injury noted. Back: No CVA tenderness. Full range of motion noted. Skin: Skin warm and dry. Normal skin color. Normal skin turgor. No rashes/lesions/lacerations noted. Extremities: No lower extremity edema. Extremities exhibit normal range of motion. Extremities nontender. Neuro: Oriented X 3. No motor deficit. No sensory deficit. Reflexes normal. Psych: Appearance grossly normal, well-kept, mental status normal, speech and movement normal, speech clear, patient appears very anxious. Is cooperative. Normal thought process. Normal thought content. Normal good insight. Judgment good. Course Course Course Narrative: Will give the patient a dose of 0.5 Xanax. Explained to her that I cannot give her Xanax prescription to go home although for her insomnia will give her 7 tablets of Benadryl and instructions to return if any new or worsening symptoms to follow up with primary care provider. Patient denies any SI/HI/auditory visual hallucinations thoughts of self-injury. Is with her [employer]. Reports she feels safe at home. Denies any additional complaints or concerns at this time. Patient understands agrees with this plan. MDM - Anxiety Medical Records Attestation: I reviewed the patient's medical records. Discharge Plan Discharge Clinical Impression: Generalized anxiety disorder with panic attacks, Insomnia Patient Disposition: Home, Self-Care Instructions: Insomnia (ED), Anxiety (ED) Prescriptions: New diphenhydramine HCl [Benadryl] 25 mg capsule 25 mg PO BEDTIME Qty: 7 RF: 0 No Action escitalopram oxalate 10 mg tablet 10 mg PO DAILY Qty: 30 RF: 1 metoprolol succinate 50 mg tablet extended release 24 hr 50 mg PO DAILY Qty: 90 RF: 2 aspirin 81 mg tablet,delayed release (DR/EC) 81 mg PO BEDTIME Qty: 90 RF: 2 acetaminophen 325 mg capsule 325 mg PO QID PRN (Reason: fever or pain) Qty: 30 RF: 0 alprazolam 0.5 mg Tablet 0.5 mg PO TID PRN (Reason: Anxiety) RF: 0 hydroxyzine HCl 50 mg Tablet 50 mg PO TID PRN (Reason: Anxiety) RF: 0 mirtazapine 45 mg Tablet 45 mg PO BEDTIME RF: 0 lisinopril 40 mg Tablet 40 mg PO DAILY RF: 0 multivitamin Capsule 1 cap PO DAILY RF: 0 sertraline 50 mg Tablet 50 mg PO BEDTIME RF: 0 aripiprazole 2 mg Tablet 2 mg PO BEDTIME RF: 0 cholecalciferol (vitamin D3) 25 mcg (1,000 unit) Tablet 25 mcg PO BID RF: 0 omeprazole 20 mg Tablet,Delayed Release (Dr/Ec) 20 mg PO DAILY RF: 0 linaclotide 145 mcg Capsule 145 mcg PO DAILY RF: 0 Calmoseptine 0.44-20.6 % ointment 1 appl topical QID PRN (Reason: skin irritation) Qty: 113 RF: 0 magnesium citrate Solution 150 ml PO DAILY PRN (Reason: constipation) Qty: 296 RF: 0 Referrals: Name,MD Nitin [Primary Care Provider] - 2 days Print Language: Welsh
[2020-12-25 08:54] VITALS: BP 126/76; PULSE 85; RESP 16; TEMP 36.4; O2SAT 97; BMI 26.5
[2020-12-25] MEDS: ALPRAZolam 0.5 MG TABLET PO (08:58)
== END 2020-12-25 09:02 | disposition home or self-care (01) ==
PROVIDERS: Emergency Provider Emergency Medicine; PCP Internal Medicine Geriatric Medicine
DX: F41.1 Generalized anxiety disorder (principal); F41.0 Panic disorder [episodic paroxysmal anxiety]; G47.00 Insomnia, unspecified; Z79.899 Other long term (current) drug therapy
CPT/HCPCS: 99283

== ENCOUNTER 2021-01-01 09:28 | Emergency (ER) | payer MEDICARE, MEDICAID, SELFPAY ==
[2021-01-01 09:52] VITALS: BP 147/72; PULSE 86; RESP 17; TEMP 36.6; O2SAT 97; BMI 27.4
--- NOTE | 2021-01-01 10:37 | ED.ANXIETY ---
HPI - Anxiety General Chief Complaint: Anxiety Stated Complaint: headache,anxiety Time Seen by Provider: 01/01/21 10:37 Source: patient Mode of arrival: ambulatory Limitations: no limitations History of Present Illness HPI narrative: Patient is concerned that she does not have enough medication for her anxiety Onset (ago): year(s) Severity: moderate Quality: constant History of similar episodes: Yes Provoking factors: emotional stress and medication change Relieving factors: medication Associated symptoms: denies other symptoms Related Data Home Medications Medication Instructions Recorded Confirmed alprazolam 0.5 mg PO TID PRN 08/09/20 12/13/20 aripiprazole 2 mg PO BEDTIME 08/09/20 12/13/20 cholecalciferol (vitamin D3) 25 mcg PO BID 08/09/20 12/13/20 hydroxyzine HCl 50 mg PO TID PRN 08/09/20 12/13/20 linaclotide 145 mcg PO DAILY 08/09/20 12/13/20 lisinopril 40 mg PO DAILY 08/09/20 12/13/20 mirtazapine 45 mg PO BEDTIME 08/09/20 12/13/20 multivitamin 1 cap PO DAILY 08/09/20 12/13/20 omeprazole 20 mg PO DAILY 08/09/20 12/13/20 sertraline 50 mg PO BEDTIME 08/09/20 12/13/20 Previous Rx's Medication Instructions Recorded escitalopram oxalate 10 mg tablet 10 mg PO DAILY #30 tab 09/06/20 acetaminophen 325 mg PO QID PRN #30 cap 09/16/20 aspirin 81 mg tablet,delayed 81 mg PO BEDTIME #90 tab 09/28/20 release metoprolol succinate 50 mg 50 mg PO DAILY #90 tab 09/28/20 tablet,extended release 24 hr menthol 0.44 %-zinc oxide 20.6 % 1 appl TOPICAL QID PRN #113 g 12/13/20 topical ointment magnesium citrate 150 ml PO DAILY PRN #296 ml 12/14/20 diphenhydramine HCl [Benadryl] 25 mg PO BEDTIME #7 cap 12/25/20 Allergies Allergy/AdvReac Type Severity Reaction Status Date / Time penicillin G [Penicillin G] Allergy Severe ITCHY/RASH Verified 12/13/20 14:53 Sulfa (Sulfonamide Allergy Severe ITCHY,RASH, Verified 12/13/20 14:53 Antibiotics) rash [Sulfa (Sulfonamides)] trimethoprim [From Bactrim] Allergy Severe HIVES Verified 12/13/20 14:53 penicillin V Allergy Unknown rash Verified 12/13/20 14:53 sulfacetamide Allergy Unknown unknown Verified 12/13/20 14:53 [From Sulfacet-R] sulfur [From Sulfacet-R] Allergy Unknown unknown Verified 12/13/20 14:53 Review of Systems Constitutional: Constitutional: Reports no additional constitutional complaints Eyes: Eyes: Reports no additional eye complaints ENT: Denies dizziness Cardiovascular: Cardiovascular: Reports no additional cardiovascular complaints Respiratory: Respiratory: Reports as per HPI Gastrointestinal: Gastrointestinal: Reports no additional gastrointestinal complaints Genitourinary: Genitourinary: Reports no additional female genitourinary complaints Musculoskeletal: Musculoskeletal: Reports no additional musculoskeletal complaints Integumentary/Breasts: Skin/Breast: Denies rash Neurologic: Reports system reviewed and no additional complaints, except as documented, Denies dizziness and Denies Sensory deficit (Neuro) Psychiatric: Psychiatric: Denies anxiety [facility] Past Medical History Medical History Anxiety Arthritis Chronic constipation Dementia High blood pressure Vertigo Surgical History No pertinent past surgical history Social History Social History Alcohol intake: unknown Smoking Status: Smoker, status unknown Advance Directives: No Advance Directives Information Provided: No Physical Exam Vital Signs: Vital Signs: Last Vital Signs Temp 98 F 01/01/21 09:52 Pulse 86 01/01/21 09:52 Resp 17 01/01/21 09:52 BP 147/72 H 01/01/21 09:52 Pulse Ox 97 01/01/21 09:52 Body Mass Index 27.4 Const: Other: anxious elderly female shaking General: healthy appearing Nutritional Appearance: average body habitus Orientation/consciousness: oriented to person and patient oriented x3 Limitations: no limitations HENMT: Head: Yes normal to inspection Ears: external ears normal General nose exam: Normal external nose present Mouth: Normal oral and palatal mucosa present and oropharynx normal Throat: Yes posterior oropharynx normal Eyes: General: appearance normal, both eyes and all related structures Neck: Other: supple Neck: Yes normal visual inspection Chest: Chest palpation & inspection: normal inspection of the chest Resp: Auscultation: clear to auscultation bilaterally Cardio: Jugular venous distension: no JVD Rate: regular rate Rhythm: regular rhythm Heart sounds: S1 normal heart sound present and S2 normal heart sound present GI: Inspection: Yes normal to inspection Palpation (GI): Soft to palpation, nontender and No hepatosplenomegaly present Auscultation: normal bowel sounds : General: Yes no CVA tenderness Back/Spine/Pelvis: Back: no CVA tenderness Skin: General skin exam: no rashes or lesions noted Neuro: General: oriented to person and patient oriented x3 Cranial nerves: Yes CN's II-XII intact bilaterally Motor exam (neuro): 5/5 motor strength present throughout Sensory Exam: No Sensory deficit (Neuro) Extrem: General: Yes normal to inspection Psych: Appearance: grossly normal Course Course Course Narrative: will treat patient with ativan and discharge home MDM - Anxiety Differential Diagnosis Differential diagnosis: Likely hyperventilation, panic disorder and acute anxiety Discharge Plan Discharge Clinical Impression: Generalized anxiety disorder with panic attacks, Acute anxiety Patient Disposition: Home, Self-Care Instructions: Anxiety (ED) Prescriptions: No Action escitalopram oxalate 10 mg tablet 10 mg PO DAILY Qty: 30 RF: 1 metoprolol succinate 50 mg tablet extended release 24 hr 50 mg PO DAILY Qty: 90 RF: 2 aspirin 81 mg tablet,delayed release (DR/EC) 81 mg PO BEDTIME Qty: 90 RF: 2 acetaminophen 325 mg capsule 325 mg PO QID PRN (Reason: fever or pain) Qty: 30 RF: 0 alprazolam 0.5 mg Tablet 0.5 mg PO TID PRN (Reason: Anxiety) RF: 0 hydroxyzine HCl 50 mg Tablet 50 mg PO TID PRN (Reason: Anxiety) RF: 0 mirtazapine 45 mg Tablet 45 mg PO BEDTIME RF: 0 lisinopril 40 mg Tablet 40 mg PO DAILY RF: 0 multivitamin Capsule 1 cap PO DAILY RF: 0 sertraline 50 mg Tablet 50 mg PO BEDTIME RF: 0 aripiprazole 2 mg Tablet 2 mg PO BEDTIME RF: 0 cholecalciferol (vitamin D3) 25 mcg (1,000 unit) Tablet 25 mcg PO BID RF: 0 omeprazole 20 mg Tablet,Delayed Release (Dr/Ec) 20 mg PO DAILY RF: 0 linaclotide 145 mcg Capsule 145 mcg PO DAILY RF: 0 diphenhydramine HCl [Benadryl] 25 mg capsule 25 mg PO BEDTIME Qty: 7 RF: 0 Calmoseptine 0.44-20.6 % ointment 1 appl topical QID PRN (Reason: skin irritation) Qty: 113 RF: 0 magnesium citrate Solution 150 ml PO DAILY PRN (Reason: constipation) Qty: 296 RF: 0 Referrals: Wale,MD iNtin [Primary Care Provider] - 2 days
[2021-01-01] MEDS: LORazepam 1 MG TABLET PO (10:49)
--- NOTE | 2021-01-01 11:12 | PC.NURSE ---
ambulatory in to dept with steady gait, requesting orange juice and something for anxiety seen by Dr Fernandez, medicated with ativan and juice given, rn went to obtain written dc instructions pt left prior to my return
== END 2021-01-01 11:00 | disposition home or self-care (01) ==
PROVIDERS: Emergency Provider Emergency Medicine; PCP Internal Medicine Geriatric Medicine
DX: F41.9 Anxiety disorder, unspecified (principal); F41.0 Panic disorder [episodic paroxysmal anxiety]; F03.90 Unspecified dementia, unspecified severity, without behavioral disturbance, psychotic disturbance, mood disturbance, and anxiety; Z79.899 Other long term (current) drug therapy
CPT/HCPCS: 99283

== ENCOUNTER 2021-01-07 08:01 | Emergency (ER) | payer MEDICARE, MEDICAID, SELFPAY ==
[2021-01-07 08:13] VITALS: BP 158/77; PULSE 87; RESP 15; TEMP 36.9; O2SAT 98; BMI 24.3
--- NOTE | 2021-01-07 09:21 | ED_ITS ---
HPI - General Adult General Chief complaint: General Medical Stated complaint: HBP Time Seen by Provider: 01/07/21 09:04 Source: patient Mode of arrival: ambulatory Limitations: no limitations History of Present Illness HPI narrative: 75 y/o female with history of anxiety, HTN who frequently visits this ER for anxiety and medication refill. She was seen here on 01/01 for anxiety - given anxiolytic and discharged home. She reports her pharmacy ([facility]) is closed today and she needs her Melatonin ER. She is anxious and reporting intermittent dizziness due to vertigo and chronic left ear problems. S he also reports her BP was elevated at home this morning. Does not recall the number. She has no headache, chest pain, vision changes. MD complaint: anxiety Onset (ago): hour(s) Location: head Radiation: non-radiation Severity: moderate Relieving factors: medication Exacerbating factors: none Associated symptoms: denies other symptoms Treatments prior to arrival: none Related Data Home Medications Medication Instructions Recorded Confirmed alprazolam 0.5 mg PO TID PRN 08/09/20 12/13/20 aripiprazole 2 mg PO BEDTIME 08/09/20 12/13/20 cholecalciferol (vitamin D3) 25 mcg PO BID 08/09/20 12/13/20 hydroxyzine HCl 50 mg PO TID PRN 08/09/20 12/13/20 linaclotide 145 mcg PO DAILY 08/09/20 12/13/20 lisinopril 40 mg PO DAILY 08/09/20 12/13/20 mirtazapine 45 mg PO BEDTIME 08/09/20 12/13/20 multivitamin 1 cap PO DAILY 08/09/20 12/13/20 omeprazole 20 mg PO DAILY 08/09/20 12/13/20 sertraline 50 mg PO BEDTIME 08/09/20 12/13/20 Previous Rx's Medication Instructions Recorded escitalopram oxalate 10 mg tablet 10 mg PO DAILY #30 tab 09/06/20 acetaminophen 325 mg PO QID PRN #30 cap 09/16/20 aspirin 81 mg tablet,delayed 81 mg PO BEDTIME #90 tab 09/28/20 release metoprolol succinate 50 mg 50 mg PO DAILY #90 tab 09/28/20 tablet,extended release 24 hr menthol 0.44 %-zinc oxide 20.6 % 1 appl TOPICAL QID PRN #113 g 12/13/20 topical ointment magnesium citrate 150 ml PO DAILY PRN #296 ml 12/14/20 diphenhydramine HCl [Benadryl] 25 mg PO BEDTIME #7 cap 12/25/20 melatonin 10 mg PO .nightly #5 tab 01/07/21 Allergies Allergy/AdvReac Type Severity Reaction Status Date / Time penicillin G [Penicillin G] Allergy Severe ITCHY/RASH Verified 12/13/20 14:53 Sulfa (Sulfonamide Allergy Severe ITCHY,RASH, Verified 12/13/20 14:53 Antibiotics) rash [Sulfa (Sulfonamides)] trimethoprim [From Bactrim] Allergy Severe HIVES Verified 12/13/20 14:53 penicillin V Allergy Unknown rash Verified 12/13/20 14:53 sulfacetamide Allergy Unknown unknown Verified 12/13/20 14:53 [From Sulfacet-R] sulfur [From Sulfacet-R] Allergy Unknown unknown Verified 12/13/20 14:53 Review of Systems Review of Systems: Constitutional: No Fever, No Chills ENT/Mouth: No sore throat, No Rhinorrhea, No Swallowing Difficulty, +ear pain (L) Cardiovascular: No Chest Pain, No SOB Respiratory: No Cough, No Sputum Gastrointestinal: No Nausea, No Vomiting, No Diarrhea, No abdominal Pain Musculoskeletal: No joint pain, No Myalgias Skin: No Skin Lesions, No rash Neuro: No Weakness, No Numbness, + Dizziness, No Headache Psych: + Anxiety/Panic, No Depression PMFSH Past Medical History Attestation statement: The following information was validated with the patient. Medical History Anxiety Arthritis Chronic constipation Dementia High blood pressure Vertigo Surgical History No pertinent past surgical history Social History Social History Alcohol intake: unknown Smoking Status: Smoker, status unknown Advance Directives: No Advance Directives Information Provided: No Physical Exam Vital Signs: Vital Signs: Last Vital Signs Temp 98.4 F 01/07/21 08:13 Pulse 87 01/07/21 08:13 Resp 15 01/07/21 08:13 BP 158/77 H 01/07/21 08:13 Pulse Ox 98 01/07/21 08:13 Body Mass Index 24.3 Appearance: Alert. Oriented X3. No acute distress. Eyes: Pupils equal, round and reactive to light. ENT: Pharynx normal. Neck: Normal inspection. Neck supple. CVS: Normal heart rate and rhythm. Pulses normal. Respiratory: No respiratory distress. Breath sounds normal. Abdomen: Soft and nontender. +BS x4 Skin: Skin warm and dry. Normal skin color. Normal skin turgor. No rashes. Extremities: No lower extremity edema. Neuro: Oriented X 3. No motor deficit. No sensory deficit. Walks w/ steady gait. Course Course Course Narrative: 75 y/o female presenting with recurrent uncontrolled anxiety, HTN and med refill for melatonin. BP 150/70's which is improved from her prior visits. She is asymptomatic. Patient again counseled on how she needs to follow up with her PCP for these issues. She agrees to. Short course of melatonin Rx provided and patient educated that this can be obtained OTC. She is stable for d/c. Discharge Plan Discharge Clinical Impression: Generalized anxiety disorder with panic attacks Insomnia Qualifiers: Insomnia type: unspecified Qualified Code(s): G47.00 - Insomnia, unspecified Hypertension Qualifiers: Hypertension type: unspecified Qualified Code(s): I10 - Essential (primary) hypertension Patient Disposition: Home, Self-Care Instructions: Generalized Anxiety Disorder (ED), Hypertension (ED), Insomnia (ED) Additional Instructions: Take all of your medications as prescribed. Follow up with your doctor this week. Prescriptions: New melatonin 10 mg tablet extended release 10 mg PO .nightly Qty: 5 RF: 0 No Action escitalopram oxalate 10 mg tablet 10 mg PO DAILY Qty: 30 RF: 1 metoprolol succinate 50 mg tablet extended release 24 hr 50 mg PO DAILY Qty: 90 RF: 2 aspirin 81 mg tablet,delayed release (DR/EC) 81 mg PO BEDTIME Qty: 90 RF: 2 acetaminophen 325 mg capsule 325 mg PO QID PRN (Reason: fever or pain) Qty: 30 RF: 0 alprazolam 0.5 mg Tablet 0.5 mg PO TID PRN (Reason: Anxiety) RF: 0 hydroxyzine HCl 50 mg Tablet 50 mg PO TID PRN (Reason: Anxiety) RF: 0 mirtazapine 45 mg Tablet 45 mg PO BEDTIME RF: 0 lisinopril 40 mg Tablet 40 mg PO DAILY RF: 0 multivitamin Capsule 1 cap PO DAILY RF: 0 sertraline 50 mg Tablet 50 mg PO BEDTIME RF: 0 aripiprazole 2 mg Tablet 2 mg PO BEDTIME RF: 0 cholecalciferol (vitamin D3) 25 mcg (1,000 unit) Tablet 25 mcg PO BID RF: 0 omeprazole 20 mg Tablet,Delayed Release (Dr/Ec) 20 mg PO DAILY RF: 0 linaclotide 145 mcg Capsule 145 mcg PO DAILY RF: 0 diphenhydramine HCl [Benadryl] 25 mg capsule 25 mg PO BEDTIME Qty: 7 RF: 0 Calmoseptine 0.44-20.6 % ointment 1 appl topical QID PRN (Reason: skin irritation) Qty: 113 RF: 0 magnesium citrate Solution 150 ml PO DAILY PRN (Reason: constipation) Qty: 296 RF: 0 Print Language: Nepali
[2021-01-07] MEDS: LORazepam 0.5 MG TABLET PO (09:35)
== END 2021-01-07 09:38 | disposition home or self-care (01) ==
PROVIDERS: Emergency Provider Emergency Medicine Emergency Medical Services; PCP Internal Medicine Geriatric Medicine
DX: R42 Dizziness and giddiness (principal); G47.00 Insomnia, unspecified; H92.02 Otalgia, left ear; F41.1 Generalized anxiety disorder; Z76.0 Encounter for issue of repeat prescription; Z79.899 Other long term (current) drug therapy
CPT/HCPCS: 99283

== ENCOUNTER 2021-01-08 08:53 | Emergency (ER) | payer MEDICARE, MEDICAID, SELFPAY ==
[2021-01-08 09:06] VITALS: BP 140/82; PULSE 90; RESP 18; TEMP 36.7; O2SAT 97; BMI 26.6
--- NOTE | 2021-01-08 09:43 | ED.ANXIETY ---
HPI - Anxiety General Chief Complaint: Anxiety Stated Complaint: anxiety Time Seen by Provider: 01/08/21 09:14 History of Present Illness HPI narrative: Patient complains of anxiety and requests an Ativan causes she is out of medication and will see her doctor tomorrow, denies suicidal ideation denies chest pain denies shortness of breath denies hearing voices Related Data Home Medications Medication Instructions Recorded Confirmed alprazolam 0.5 mg PO TID PRN 08/09/20 12/13/20 aripiprazole 2 mg PO BEDTIME 08/09/20 12/13/20 cholecalciferol (vitamin D3) 25 mcg PO BID 08/09/20 12/13/20 hydroxyzine HCl 50 mg PO TID PRN 08/09/20 12/13/20 linaclotide 145 mcg PO DAILY 08/09/20 12/13/20 lisinopril 40 mg PO DAILY 08/09/20 12/13/20 mirtazapine 45 mg PO BEDTIME 08/09/20 12/13/20 multivitamin 1 cap PO DAILY 08/09/20 12/13/20 omeprazole 20 mg PO DAILY 08/09/20 12/13/20 sertraline 50 mg PO BEDTIME 08/09/20 12/13/20 Previous Rx's Medication Instructions Recorded escitalopram oxalate 10 mg tablet 10 mg PO DAILY #30 tab 09/06/20 acetaminophen 325 mg PO QID PRN #30 cap 09/16/20 aspirin 81 mg tablet,delayed 81 mg PO BEDTIME #90 tab 09/28/20 release metoprolol succinate 50 mg 50 mg PO DAILY #90 tab 09/28/20 tablet,extended release 24 hr menthol 0.44 %-zinc oxide 20.6 % 1 appl TOPICAL QID PRN #113 g 12/13/20 topical ointment magnesium citrate 150 ml PO DAILY PRN #296 ml 12/14/20 diphenhydramine HCl [Benadryl] 25 mg PO BEDTIME #7 cap 12/25/20 melatonin 10 mg PO .nightly #5 tab 01/07/21 Allergies Allergy/AdvReac Type Severity Reaction Status Date / Time penicillin G [Penicillin G] Allergy Severe ITCHY/RASH Verified 12/13/20 14:53 Sulfa (Sulfonamide Allergy Severe ITCHY,RASH, Verified 12/13/20 14:53 Antibiotics) rash [Sulfa (Sulfonamides)] trimethoprim [From Bactrim] Allergy Severe HIVES Verified 12/13/20 14:53 penicillin V Allergy Unknown rash Verified 12/13/20 14:53 sulfacetamide Allergy Unknown unknown Verified 12/13/20 14:53 [From Sulfacet-R] sulfur [From Sulfacet-R] Allergy Unknown unknown Verified 12/13/20 14:53 Review of Systems Review of Systems: Positive for anxiety There is no fever no chills no dizziness no weakness no chest pain no shortness of breath no nausea or vomiting, no suicidal thoughts no thoughts of self-harm no thoughts of harming any other she is not hearing voices Yes all other systems are reviewed and are negative PMFSH Past Medical History [facility] Narrative: Patient is frequent visitor to the ER who has a care plan which says she has a WEIGHT INSPECTOR to give her her medication today and other days and best plan is not to gun striper her Ativan here in ER and have anxiety medication managed at home by her WEIGHT INSPECTOR and as an outpatient by her primary care doctor Medical History Anxiety Arthritis Chronic constipation Dementia High blood pressure Vertigo Surgical History No pertinent past surgical history Social History Social History Alcohol intake: unknown Smoking Status: Never smoker Use of substances other than those prescribed or required for medical reasons: No Advance Directives: No Physical Exam Vital Signs: Vital Signs: Last Vital Signs Temp 98.0 F 01/08/21 09:06 Pulse 90 01/08/21 09:06 Resp 18 01/08/21 09:06 BP 140/82 H 01/08/21 09:06 Pulse Ox 97 01/08/21 09:06 Body Mass Index 26.6 General appearance no distress, comfortable, relaxed and cooperative Head is normocephalic and atraumatic Neck is supple Chest no respiratory distress Extremities for range of motion times were Skin no rash Neuro no focal deficit, she is speaking and interacting normally with good understanding and her gait is normal Course Course Course Narrative: Patient is again advised that she has medication at home and should take her medication at home and her WEIGHT INSPECTOR will give it to her and she should follow for all medication changes adjustments and refills with primary care There was no acute medical issue today and patient was comfortable and stable throughout her visit Discharge Plan Discharge Clinical Impression: Anxiety Patient Disposition: Home, Self-Care Additional Instructions: Follow with your doctor and WEIGHT INSPECTOR at home for all medication Prescriptions: No Action escitalopram oxalate 10 mg tablet 10 mg PO DAILY Qty: 30 RF: 1 metoprolol succinate 50 mg tablet extended release 24 hr 50 mg PO DAILY Qty: 90 RF: 2 aspirin 81 mg tablet,delayed release (DR/EC) 81 mg PO BEDTIME Qty: 90 RF: 2 acetaminophen 325 mg capsule 325 mg PO QID PRN (Reason: fever or pain) Qty: 30 RF: 0 melatonin 10 mg tablet extended release 10 mg PO .nightly Qty: 5 RF: 0 alprazolam 0.5 mg Tablet 0.5 mg PO TID PRN (Reason: Anxiety) RF: 0 hydroxyzine HCl 50 mg Tablet 50 mg PO TID PRN (Reason: Anxiety) RF: 0 mirtazapine 45 mg Tablet 45 mg PO BEDTIME RF: 0 lisinopril 40 mg Tablet 40 mg PO DAILY RF: 0 multivitamin Capsule 1 cap PO DAILY RF: 0 sertraline 50 mg Tablet 50 mg PO BEDTIME RF: 0 aripiprazole 2 mg Tablet 2 mg PO BEDTIME RF: 0 cholecalciferol (vitamin D3) 25 mcg (1,000 unit) Tablet 25 mcg PO BID RF: 0 omeprazole 20 mg Tablet,Delayed Release (Dr/Ec) 20 mg PO DAILY RF: 0 linaclotide 145 mcg Capsule 145 mcg PO DAILY RF: 0 diphenhydramine HCl [Benadryl] 25 mg capsule 25 mg PO BEDTIME Qty: 7 RF: 0 Calmoseptine 0.44-20.6 % ointment 1 appl topical QID PRN (Reason: skin irritation) Qty: 113 RF: 0 magnesium citrate Solution 150 ml PO DAILY PRN (Reason: constipation) Qty: 296 RF: 0 Interventions: ED Discharge Assessment Last Done: 01/08/21 09:47 Discharge Date/Time: 01/08/21 09:48
--- NOTE | 2021-01-08 09:44 | PC.NURSE ---
PT AT BASELINE. PT IN A HURRY TO LEAVE ED. PT WALKING AROUND ER TO PA DESK TELLING HIM I HAVE TO LEAVE NOW. PT ENCOURAGED TO STAY FOR DISCHARGE PAPERWORK.
== END 2021-01-08 09:48 | disposition home or self-care (01) ==
PROVIDERS: Emergency Provider Emergency Medicine; PCP Internal Medicine Geriatric Medicine
DX: F41.9 Anxiety disorder, unspecified (principal); Z76.0 Encounter for issue of repeat prescription
CPT/HCPCS: 99283

== ENCOUNTER 2021-01-09 02:52 | Emergency (ER) | payer MEDICARE, MEDICAID, SELFPAY ==
[2021-01-09 03:05] VITALS: BP 168/90; BP 183/89; PULSE 100; PULSE 109; RESP 15; TEMP 37.2; O2SAT 100; O2SAT 97; BMI 23.5
--- NOTE | 2021-01-09 03:57 | ED_ITS ---
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 in the morning, but is suffering from feeling very anxious and trembling with mild sweating and nausea. Otherwise, she denies any fevers, chills, shortness of breath, chest pain/palpitations and does describe some chronic ear ringing this been ongoing for months. Related Data Home Medications Medication Instructions Recorded Confirmed alprazolam 0.5 mg PO TID PRN 08/09/20 12/13/20 aripiprazole 2 mg PO BEDTIME 08/09/20 12/13/20 cholecalciferol (vitamin D3) 25 mcg PO BID 08/09/20 12/13/20 hydroxyzine HCl 50 mg PO TID PRN 08/09/20 12/13/20 linaclotide 145 mcg PO DAILY 08/09/20 12/13/20 lisinopril 40 mg PO DAILY 08/09/20 12/13/20 mirtazapine 45 mg PO BEDTIME 08/09/20 12/13/20 multivitamin 1 cap PO DAILY 08/09/20 12/13/20 omeprazole 20 mg PO DAILY 08/09/20 12/13/20 sertraline 50 mg PO BEDTIME 08/09/20 12/13/20 Previous Rx's Medication Instructions Recorded escitalopram oxalate 10 mg tablet 10 mg PO DAILY #30 tab 09/06/20 acetaminophen 325 mg PO QID PRN #30 cap 09/16/20 aspirin 81 mg tablet,delayed 81 mg PO BEDTIME #90 tab 09/28/20 release metoprolol succinate 50 mg 50 mg PO DAILY #90 tab 09/28/20 tablet,extended release 24 hr menthol 0.44 %-zinc oxide 20.6 % 1 appl TOPICAL QID PRN #113 g 12/13/20 topical ointment magnesium citrate 150 ml PO DAILY PRN #296 ml 12/14/20 diphenhydramine HCl [Benadryl] 25 mg PO BEDTIME #7 cap 12/25/20 melatonin 10 mg PO .nightly #5 tab 01/07/21 Allergies Allergy/AdvReac Type Severity Reaction Status Date / Time penicillin G [Penicillin G] Allergy Severe ITCHY/RASH Verified 12/13/20 14:53 Sulfa (Sulfonamide Allergy Severe ITCHY,RASH, Verified 12/13/20 14:53 Antibiotics) rash [Sulfa (Sulfonamides)] trimethoprim [From Bactrim] Allergy Severe HIVES Verified 12/13/20 14:53 penicillin V Allergy Unknown rash Verified 12/13/20 14:53 sulfacetamide Allergy Unknown unknown Verified 12/13/20 14:53 [From Sulfacet-R] sulfur [From Sulfacet-R] Allergy Unknown unknown Verified 12/13/20 14:53 Review of Systems Review of Systems: Pertinent positives and negatives as stated in HPI 10 point review systems is otherwise negative. [facility] Past Medical History Source: nursing notes reviewed Medical History Anxiety Arthritis Chronic constipation Dementia High blood pressure Vertigo Surgical History No pertinent past surgical history Social History Social History Alcohol intake: unknown Smoking Status: Never smoker Use of substances other than those prescribed or required for medical reasons: No Advance Directives: No Physical Exam Vital Signs: Vital Signs: Last Vital Signs Temp 98.9 F 01/09/21 03:05 Pulse 109 H 01/09/21 03:05 Resp 15 01/09/21 03:05 BP 183/89 H 01/09/21 03:05 Pulse Ox 97 01/09/21 03:05 Body Mass Index 23.5 VITAL SIGNS: Reviewed. GENERAL: Well developed, well nourished, anxious. HEAD: Normocephalic/atraumatic, EYES: PERRLA, EOMI NOSE: Nares patent bilateral OROPHARYNX: no oral lesions noted, posterior pharynx clear NECK: Supple, no adenopathy LUNGS: Normal breath sounds. No adventitious sounds or accessory muscle use. SpO2<97> CARDIOVASCULAR: Regular rate and rhythm without noted murmurs, no JVD or lower extremity edema. ABDOMEN: Soft, non-tender, non-distended with bowel sounds. NEUROLOGIC: Alert and oriented x 4. Strength and sensation to light touch were grossly intact x 4, no pronator drift, no facial asymmetry, cranial nerves 2-12 are grossly intact. Course Course Course Narrative: This is a 75-year-old female with history and clinical presentation consistent with mild anxiety hand although reporting some dizziness she then states that it is chronic in nature and on clinical exam there are no focal deficits noted. Patient received hydroxyzine and on re-evaluation had good resolution of her anxiety symptoms. She was discharged home in stable condition. Discharge Plan Discharge Clinical Impression: Anxiety Patient Disposition: Home, Self-Care Instructions: Anxiety (ED) Additional Instructions: No dude en volver al servicio de urgencias si presenta alg?n empeoramiento mechelle de kelsi s?ntomas. Prescriptions: No Action escitalopram oxalate 10 mg tablet 10 mg PO DAILY Qty: 30 RF: 1 metoprolol succinate 50 mg tablet extended release 24 hr 50 mg PO DAILY Qty: 90 RF: 2 aspirin 81 mg tablet,delayed release (DR/EC) 81 mg PO BEDTIME Qty: 90 RF: 2 acetaminophen 325 mg capsule 325 mg PO QID PRN (Reason: fever or pain) Qty: 30 RF: 0 melatonin 10 mg tablet extended release 10 mg PO .nightly Qty: 5 RF: 0 alprazolam 0.5 mg Tablet 0.5 mg PO TID PRN (Reason: Anxiety) RF: 0 hydroxyzine HCl 50 mg Tablet 50 mg PO TID PRN (Reason: Anxiety) RF: 0 mirtazapine 45 mg Tablet 45 mg PO BEDTIME RF: 0 lisinopril 40 mg Tablet 40 mg PO DAILY RF: 0 multivitamin Capsule 1 cap PO DAILY RF: 0 sertraline 50 mg Tablet 50 mg PO BEDTIME RF: 0 aripiprazole 2 mg Tablet 2 mg PO BEDTIME RF: 0 cholecalciferol (vitamin D3) 25 mcg (1,000 unit) Tablet 25 mcg PO BID RF: 0 omeprazole 20 mg Tablet,Delayed Release (Dr/Ec) 20 mg PO DAILY RF: 0 linaclotide 145 mcg Capsule 145 mcg PO DAILY RF: 0 diphenhydramine HCl [Benadryl] 25 mg capsule 25 mg PO BEDTIME Qty: 7 RF: 0 Calmoseptine 0.44-20.6 % ointment 1 appl topical QID PRN (Reason: skin irritation) Qty: 113 RF: 0 magnesium citrate Solution 150 ml PO DAILY PRN (Reason: constipation) Qty: 296 RF: 0 Referrals: Name,MD Nitin [Primary Care Provider] - 2 days (Re-evaluation) Interventions: ED Discharge Assessment Last Done: 01/09/21 04:05
[2021-01-09] MEDS: hydrOXYzine HCL 25 MG TABLET PO (04:04)
== END 2021-01-09 04:32 | disposition home or self-care (01) ==
PROVIDERS: Emergency Provider Student in an Organized Health Care Education/Training Program; PCP Internal Medicine Geriatric Medicine
DX: F41.1 Generalized anxiety disorder (principal); F43.0 Acute stress reaction; Z79.899 Other long term (current) drug therapy
CPT/HCPCS: 99284

== ENCOUNTER 2021-02-05 06:37 | Emergency (ER) | payer MEDICARE, MEDICAID, SELFPAY ==
--- NOTE | 2021-02-05 07:16 | ED.ANXIETY ---
HPI - Anxiety General Stated Complaint: Anxiety Time Seen by Provider: 02/05/21 07:16 Source: patient Mode of arrival: wheelchair Limitations: no limitations History of Present Illness HPI narrative: Patient ran out of [place] and she is in a panic. MD complaint: anxiety Onset (ago): year(s) Symptoms: palpitations Severity: mild Quality: constant Relieving factors: medication Exacerbating factors: thinking about event Associated symptoms: palpitations and weakness Related Data Home Medications Medication Instructions Recorded Confirmed alprazolam 0.5 mg PO TID PRN 08/09/20 12/13/20 aripiprazole 2 mg PO BEDTIME 08/09/20 12/13/20 cholecalciferol (vitamin D3) 25 mcg PO BID 08/09/20 12/13/20 hydroxyzine HCl 50 mg PO TID PRN 08/09/20 12/13/20 linaclotide 145 mcg PO DAILY 08/09/20 12/13/20 lisinopril 40 mg PO DAILY 08/09/20 12/13/20 mirtazapine 45 mg PO BEDTIME 08/09/20 12/13/20 multivitamin 1 cap PO DAILY 08/09/20 12/13/20 omeprazole 20 mg PO DAILY 08/09/20 12/13/20 sertraline 50 mg PO BEDTIME 08/09/20 12/13/20 Previous Rx's Medication Instructions Recorded escitalopram oxalate 10 mg tablet 10 mg PO DAILY #30 tab 09/06/20 acetaminophen 325 mg PO QID PRN #30 cap 09/16/20 aspirin 81 mg tablet,delayed 81 mg PO BEDTIME #90 tab 09/28/20 release metoprolol succinate 50 mg 50 mg PO DAILY #90 tab 09/28/20 tablet,extended release 24 hr menthol 0.44 %-zinc oxide 20.6 % 1 appl TOPICAL QID PRN #113 g 12/13/20 topical ointment magnesium citrate 150 ml PO DAILY PRN #296 ml 12/14/20 diphenhydramine HCl [Benadryl] 25 mg PO BEDTIME #7 cap 12/25/20 melatonin 10 mg PO .nightly #5 tab 01/07/21 Allergies Allergy/AdvReac Type Severity Reaction Status Date / Time penicillin G [Penicillin G] Allergy Severe ITCHY/RASH Verified 12/13/20 14:53 Sulfa (Sulfonamide Allergy Severe ITCHY,RASH, Verified 12/13/20 14:53 Antibiotics) rash [Sulfa (Sulfonamides)] trimethoprim [From Bactrim] Allergy Severe HIVES Verified 12/13/20 14:53 penicillin V Allergy Unknown rash Verified 12/13/20 14:53 sulfacetamide Allergy Unknown unknown Verified 12/13/20 14:53 [From Sulfacet-R] sulfur [From Sulfacet-R] Allergy Unknown unknown Verified 12/13/20 14:53 Review of Systems Constitutional: Constitutional: Reports no additional constitutional complaints Eyes: Eyes: Reports no additional eye complaints ENT: Denies dizziness Cardiovascular: Cardiovascular: Reports no additional cardiovascular complaints Respiratory: Respiratory: Reports as per HPI Gastrointestinal: Gastrointestinal: Reports no additional gastrointestinal complaints Genitourinary: Genitourinary: Reports no additional female genitourinary complaints Musculoskeletal: Musculoskeletal: Reports no additional musculoskeletal complaints Integumentary/Breasts: Skin/Breast: Denies rash Neurologic: Reports system reviewed and no additional complaints, except as documented, Denies dizziness and Denies Sensory deficit (Neuro) Psychiatric: Psychiatric: Denies anxiety [facility] Past Medical History Medical History Anxiety Arthritis Chronic constipation Dementia High blood pressure Vertigo Surgical History No pertinent past surgical history Social History Social History Alcohol intake: unknown Smoking Status: Never smoker Advance Directives: Yes Advance Directives Information Provided: No Advance Directives on File: No Physical Exam Const: Other: Very anxious but alert Nutritional Appearance: average body habitus Orientation/consciousness: oriented to person and patient oriented x3 Limitations: no limitations HENMT: Head: Yes normal to inspection Ears: external ears normal General nose exam: Normal external nose present Mouth: Normal oral and palatal mucosa present and oropharynx normal Throat: Yes posterior oropharynx normal Eyes: General: appearance normal, both eyes and all related structures Neck: Other: supple Neck: Yes normal visual inspection Chest: Chest palpation & inspection: normal inspection of the chest Resp: Auscultation: clear to auscultation bilaterally Cardio: Jugular venous distension: no JVD Rate: regular rate Rhythm: regular rhythm Heart sounds: S1 normal heart sound present and S2 normal heart sound present GI: Inspection: Yes normal to inspection Palpation (GI): Soft to palpation, nontender and No hepatosplenomegaly present Auscultation: normal bowel sounds : General: Yes no CVA tenderness Back/Spine/Pelvis: Back: no CVA tenderness Skin: General skin exam: no rashes or lesions noted Neuro: General: oriented to person and patient oriented x3 Cranial nerves: Yes CN's II-XII intact bilaterally Motor exam (neuro): 5/5 motor strength present throughout Sensory Exam: No Sensory deficit (Neuro) Extrem: General: Yes normal to inspection Psych: Appearance: grossly normal MDM - Anxiety MDM Narrative Medical decision making narrative: Patient seems stable but anxious. Will give a dose of xanax and dc home Discharge Plan Discharge Clinical Impression: Generalized anxiety disorder with panic attacks Patient Disposition: Home, Self-Care Instructions: Anxiety (ED) Prescriptions: No Action escitalopram oxalate 10 mg tablet 10 mg PO DAILY Qty: 30 RF: 1 metoprolol succinate 50 mg tablet extended release 24 hr 50 mg PO DAILY Qty: 90 RF: 2 aspirin 81 mg tablet,delayed release (DR/EC) 81 mg PO BEDTIME Qty: 90 RF: 2 acetaminophen 325 mg capsule 325 mg PO QID PRN (Reason: fever or pain) Qty: 30 RF: 0 melatonin 10 mg tablet extended release 10 mg PO .nightly Qty: 5 RF: 0 alprazolam 0.5 mg Tablet 0.5 mg PO TID PRN (Reason: Anxiety) RF: 0 hydroxyzine HCl 50 mg Tablet 50 mg PO TID PRN (Reason: Anxiety) RF: 0 mirtazapine 45 mg Tablet 45 mg PO BEDTIME RF: 0 lisinopril 40 mg Tablet 40 mg PO DAILY RF: 0 multivitamin Capsule 1 cap PO DAILY RF: 0 sertraline 50 mg Tablet 50 mg PO BEDTIME RF: 0 aripiprazole 2 mg Tablet 2 mg PO BEDTIME RF: 0 cholecalciferol (vitamin D3) 25 mcg (1,000 unit) Tablet 25 mcg PO BID RF: 0 omeprazole 20 mg Tablet,Delayed Release (Dr/Ec) 20 mg PO DAILY RF: 0 linaclotide 145 mcg Capsule 145 mcg PO DAILY RF: 0 diphenhydramine HCl [Benadryl] 25 mg capsule 25 mg PO BEDTIME Qty: 7 RF: 0 Calmoseptine 0.44-20.6 % ointment 1 appl topical QID PRN (Reason: skin irritation) Qty: 113 RF: 0 magnesium citrate Solution 150 ml PO DAILY PRN (Reason: constipation) Qty: 296 RF: 0 Referrals: Name,MD Nitin [Primary Care Provider] - 2 days
[2021-02-05 07:47] VITALS: BP 108/20; PULSE 124; RESP 14; TEMP 36.8; O2SAT 98; BMI 21.2
[2021-02-05] MEDS: ALPRAZolam 0.5 MG TABLET PO (07:57)
== END 2021-02-05 08:02 | disposition home or self-care (01) ==
PROVIDERS: Emergency Provider Emergency Medicine; PCP Internal Medicine Geriatric Medicine
DX: F41.9 Anxiety disorder, unspecified (principal); F41.0 Panic disorder [episodic paroxysmal anxiety]; I10 Essential (primary) hypertension
CPT/HCPCS: 93005; 99212; 99283

== ENCOUNTER 2021-02-11 10:13 | Emergency (ER) | payer MEDICARE, MEDICAID, SELFPAY ==
[2021-02-11 10:37] VITALS: BP 150/72; PULSE 100; RESP 18; TEMP 37.2; O2SAT 97; BMI 24.7
--- NOTE | 2021-02-11 11:01 | ED.GENADULT ---
HPI - General Adult General Chief complaint: General Medical Stated complaint: panic attack Time Seen by Provider: 02/11/21 11:01 History of Present Illness HPI narrative: Patient complains of feeling anxious and says she does not have her regular medication The anxiety symptoms of feeling heart racing and fingers tingling are her typical anxiety symptoms she has no chest pain, no shortness of breath and no acute change or new complaint Related Data Home Medications Medication Instructions Recorded Confirmed alprazolam 0.5 mg PO TID PRN 08/09/20 02/05/21 aripiprazole 2 mg PO BEDTIME 08/09/20 02/05/21 cholecalciferol (vitamin D3) 25 mcg PO BID 08/09/20 02/05/21 hydroxyzine HCl 50 mg PO TID PRN 08/09/20 02/05/21 linaclotide 145 mcg PO DAILY 08/09/20 02/05/21 lisinopril 40 mg PO DAILY 08/09/20 02/05/21 mirtazapine 45 mg PO BEDTIME 08/09/20 02/05/21 multivitamin 1 cap PO DAILY 08/09/20 02/05/21 omeprazole 20 mg PO DAILY 08/09/20 02/05/21 sertraline 50 mg PO BEDTIME 08/09/20 02/05/21 Previous Rx's Medication Instructions Recorded escitalopram oxalate 10 mg tablet 10 mg PO DAILY #30 tab 09/06/20 acetaminophen 325 mg PO QID PRN #30 cap 09/16/20 aspirin 81 mg tablet,delayed 81 mg PO BEDTIME #90 tab 09/28/20 release metoprolol succinate 50 mg 50 mg PO DAILY #90 tab 09/28/20 tablet,extended release 24 hr menthol 0.44 %-zinc oxide 20.6 % 1 appl TOPICAL QID PRN #113 g 12/13/20 topical ointment magnesium citrate 150 ml PO DAILY PRN #296 ml 12/14/20 diphenhydramine HCl [Benadryl] 25 mg PO BEDTIME #7 cap 12/25/20 melatonin 10 mg PO .nightly #5 tab 01/07/21 Allergies Allergy/AdvReac Type Severity Reaction Status Date / Time penicillin G [Penicillin G] Allergy Severe ITCHY/RASH Verified 02/11/21 10:39 Sulfa (Sulfonamide Allergy Severe ITCHY,RASH, Verified 02/11/21 10:39 Antibiotics) rash [Sulfa (Sulfonamides)] trimethoprim [From Bactrim] Allergy Severe HIVES Verified 02/11/21 10:39 penicillin V Allergy Unknown rash Verified 02/11/21 10:39 sulfacetamide Allergy Unknown unknown Verified 02/11/21 10:39 [From Sulfacet-R] sulfur [From Sulfacet-R] Allergy Unknown unknown Verified 02/11/21 10:39 Review of Systems Review of Systems: Positive for anxiety Negatives are no fever no chills no dizziness no weakness no headache no neck pain no chest pain no shortness of breath no abdominal pain no vomiting no skin rash no muscle weakness PMFSH Past Medical History Source: nursing notes reviewed Medical History (Updated 02/11/21 @ 11:19 by SARA Barber) Anxiety Arthritis Chronic constipation Dementia Essential hypertension High blood pressure PAC (premature atrial contraction) PVC (premature ventricular contraction) SVT (supraventricular tachycardia) Vertigo Surgical History No pertinent past surgical history Social History Social History Alcohol intake: unknown Smoking Status: Never smoker Advance Directives: Yes Advance Directives Information Provided: Yes Advance Directives on File: No Physical Exam Vital Signs: Vital Signs: Last Vital Signs Temp 98.9 F 02/11/21 10:37 Pulse 100 02/11/21 10:37 Resp 18 02/11/21 10:37 BP 150/72 H 02/11/21 10:37 Pulse Ox 97 02/11/21 10:37 Body Mass Index 24.7 General appearance is no acute distress, she is calmer and cooperative and an O x3 Normocephalic atraumatic Neck is supple Chest is clear to auscultation bilaterally Heart no murmur Extremities full range of motion x4 Neuro motor is 5/5 x4, there is no motor deficit, gait and balance are normal, speech and interaction and comprehension are normal, no facial asymmetry Course Course Course Narrative: Frequent visitor to the ER with a prior note saying best plan for her is not to give benzos from the ER as she has a home health aide and a plan with her doctor and psychiatrist so she is given hydroxyzine 1 dose 25 mg here and in no distress, no acute issues is discharge Discharge Plan Discharge Clinical Impression: Anxiety Patient Disposition: Home, Self-Care Additional Instructions: Follow with her doctor for all regular prescription medications Prescriptions: No Action escitalopram oxalate 10 mg tablet 10 mg PO DAILY Qty: 30 RF: 1 metoprolol succinate 50 mg tablet extended release 24 hr 50 mg PO DAILY Qty: 90 RF: 2 aspirin 81 mg tablet,delayed release (DR/EC) 81 mg PO BEDTIME Qty: 90 RF: 2 acetaminophen 325 mg capsule 325 mg PO QID PRN (Reason: fever or pain) Qty: 30 RF: 0 melatonin 10 mg tablet extended release 10 mg PO .nightly Qty: 5 RF: 0 alprazolam 0.5 mg Tablet 0.5 mg PO TID PRN (Reason: Anxiety) RF: 0 hydroxyzine HCl 50 mg Tablet 50 mg PO TID PRN (Reason: Anxiety) RF: 0 mirtazapine 45 mg Tablet 45 mg PO BEDTIME RF: 0 lisinopril 40 mg Tablet 40 mg PO DAILY RF: 0 multivitamin Capsule 1 cap PO DAILY RF: 0 sertraline 50 mg Tablet 50 mg PO BEDTIME RF: 0 aripiprazole 2 mg Tablet 2 mg PO BEDTIME RF: 0 cholecalciferol (vitamin D3) 25 mcg (1,000 unit) Tablet 25 mcg PO BID RF: 0 omeprazole 20 mg Tablet,Delayed Release (Dr/Ec) 20 mg PO DAILY RF: 0 linaclotide 145 mcg Capsule 145 mcg PO DAILY RF: 0 diphenhydramine HCl [Benadryl] 25 mg capsule 25 mg PO BEDTIME Qty: 7 RF: 0 Calmoseptine 0.44-20.6 % ointment 1 appl topical QID PRN (Reason: skin irritation) Qty: 113 RF: 0 magnesium citrate Solution 150 ml PO DAILY PRN (Reason: constipation) Qty: 296 RF: 0
[2021-02-11] MEDS: hydrOXYzine HCL 25 MG TABLET PO (11:22)
== END 2021-02-11 11:25 | disposition home or self-care (01) ==
PROVIDERS: Emergency Provider Emergency Medicine; PCP Internal Medicine Geriatric Medicine
DX: F41.9 Anxiety disorder, unspecified (principal); I10 Essential (primary) hypertension; F03.90 Unspecified dementia, unspecified severity, without behavioral disturbance, psychotic disturbance, mood disturbance, and anxiety; Z79.899 Other long term (current) drug therapy
CPT/HCPCS: 99283

== ENCOUNTER 2021-02-13 03:18 | Emergency (ER) | payer MEDICARE, MEDICAID, SELFPAY ==
[2021-02-13 03:32] VITALS: BP 163/77; BP 185/109; PULSE 90; PULSE 97; RESP 18; TEMP 36.8; O2SAT 97; BMI 54.1
--- NOTE | 2021-02-13 05:01 | ED_ITS ---
HPI - General Adult General Chief complaint: Anxiety Stated complaint: HIGH BLOOD PRESSURE 168/88, RAN OUT OF BP MED Time Seen by Provider: 02/13/21 05:01 History of Present Illness HPI narrative: Patient on arrival wants her alprazolam refilled. Patient claims she ran out. Denies any suicidal homicidal ideation. No fever no chills no cough no congestion or upper respiratory symptoms for patient has a history of hypertension. She claims she still have pills for that. No chest pain. Related Data Home Medications Medication Instructions Recorded Confirmed alprazolam 0.5 mg PO TID PRN 08/09/20 02/05/21 aripiprazole 2 mg PO BEDTIME 08/09/20 02/05/21 cholecalciferol (vitamin D3) 25 mcg PO BID 08/09/20 02/05/21 hydroxyzine HCl 50 mg PO TID PRN 08/09/20 02/05/21 linaclotide 145 mcg PO DAILY 08/09/20 02/05/21 lisinopril 40 mg PO DAILY 08/09/20 02/05/21 mirtazapine 45 mg PO BEDTIME 08/09/20 02/05/21 multivitamin 1 cap PO DAILY 08/09/20 02/05/21 omeprazole 20 mg PO DAILY 08/09/20 02/05/21 sertraline 50 mg PO BEDTIME 08/09/20 02/05/21 Previous Rx's Medication Instructions Recorded escitalopram oxalate 10 mg tablet 10 mg PO DAILY #30 tab 09/06/20 acetaminophen 325 mg PO QID PRN #30 cap 09/16/20 aspirin 81 mg tablet,delayed 81 mg PO BEDTIME #90 tab 09/28/20 release metoprolol succinate 50 mg 50 mg PO DAILY #90 tab 09/28/20 tablet,extended release 24 hr menthol 0.44 %-zinc oxide 20.6 % 1 appl TOPICAL QID PRN #113 g 12/13/20 topical ointment magnesium citrate 150 ml PO DAILY PRN #296 ml 12/14/20 diphenhydramine HCl [Benadryl] 25 mg PO BEDTIME #7 cap 12/25/20 melatonin 10 mg PO .nightly #5 tab 01/07/21 Allergies Allergy/AdvReac Type Severity Reaction Status Date / Time penicillin G [Penicillin G] Allergy Severe ITCHY/RASH Verified 02/13/21 03:32 Sulfa (Sulfonamide Allergy Severe ITCHY,RASH, Verified 02/13/21 03:32 Antibiotics) rash [Sulfa (Sulfonamides)] trimethoprim [From Bactrim] Allergy Severe HIVES Verified 02/13/21 03:32 penicillin V Allergy Unknown rash Verified 02/13/21 03:32 sulfacetamide Allergy Unknown unknown Verified 02/13/21 03:32 [From Sulfacet-R] sulfur [From Sulfacet-R] Allergy Unknown unknown Verified 02/13/21 03:32 Review of Systems Review of Systems: Constitutional: No Weight loss, No Fever, No Chills, No Night Sweats, No Fatigue, No Malaise ENT/Mouth: No Hearing loss, No Ear Pain, No Nasal Congestion, No Sinus Pain, No Hoarseness, No sore throat, No Rhinorrhea, No Swallowing Difficulty Eyes: No Eye Pain, No Swelling, No Redness, No Foreign Body, No Discharge, No Vision Changes Cardiovascular: No Chest Pain, No SOB, No Dyspnea on Exertion, No Orthopnea, No Edema, No Palpitations Respiratory: No Cough, No Sputum, No Wheezing, No Smoke Exposure, No Dyspnea Gastrointestinal: No Nausea, No Vomiting, No Diarrhea, No Constipation, No abdominal Pain, No Hematochezia, No Melena Genitourinary: no irregular bleeding, No Dysuria, No Urinary Frequency, No Hematuria, No Urinary Incontinence, No Urgency, No Flank Pain, No Urinary Flow Changes, No Hesitancy Musculoskeletal: No joint pain, No Myalgias, No Joint Swelling Skin: No Skin Lesions, No rash Neuro: No Weakness, No Numbness, No Paresthesias, No Loss of Consciousness, No Dizziness, No Headache Psych: No Anxiety/Panic, No Depression, No SI/HI/AH/VH, No Social Issues, Heme/Lymph: No Bruising, No Bleeding,No Lymphadenopathy Endocrine: No Polyuria, No Polydipsia, No Temperature Intolerance [facility] Past Medical History Medical History Anxiety Arthritis Chronic constipation Dementia Essential hypertension High blood pressure PAC (premature atrial contraction) PVC (premature ventricular contraction) SVT (supraventricular tachycardia) Vertigo Surgical History No pertinent past surgical history Social History Social History Alcohol intake: unknown Smoking Status: Never smoker Advance Directives: No Physical Exam Vital Signs: Vital Signs: Last Vital Signs Temp 98.2 F 02/13/21 03:32 Pulse 97 02/13/21 03:32 Resp 18 02/13/21 03:32 BP 163/77 H 02/13/21 03:32 Pulse Ox 97 02/13/21 03:32 Body Mass Index 54.1 Appearance: Alert. Oriented X3. No acute distress. Eyes: Pupils equal, round and reactive to light. ENT: Pharynx normal. Neck: Normal inspection. Neck supple. No lymph nodes noted. No crepitus CVS: Normal heart rate and rhythm. Pulses normal. Normal S1 and S2 Respiratory: No respiratory distress. Breath sounds normal. No Wheezing. No rales Abdomen: Soft and nontender. No rigidity. No distention. good BS x4 Skin: Skin warm and dry. Normal skin color. Normal skin turgor. Extremities: No lower extremity edema. Neurovascular intact to all extremities. No Lacerations. No Rash Neuro: Oriented X 3. No motor deficit. No sensory deficit. Moving all exter mities. No slurred speech Medical Decision Making MDM Narrative Medical decision making narrative: Well-appearing no acute distress. Patient's want out pace gurrola. Was told she needs to follow up on an outpatient basis. Her blood pressure is 160/80. Patient decided to [facility] emergency dep[facility]. He did not want any further care. Patient left against medical advice. Discharge Plan Discharge Clinical Impression: Generalized anxiety disorder with panic attacks, Hypertension Patient Disposition: Left Against Medical Advice Prescriptions: No Action escitalopram oxalate 10 mg tablet 10 mg PO DAILY Qty: 30 RF: 1 metoprolol succinate 50 mg tablet extended release 24 hr 50 mg PO DAILY Qty: 90 RF: 2 aspirin 81 mg tablet,delayed release (DR/EC) 81 mg PO BEDTIME Qty: 90 RF: 2 acetaminophen 325 mg capsule 325 mg PO QID PRN (Reason: fever or pain) Qty: 30 RF: 0 melatonin 10 mg tablet extended release 10 mg PO .nightly Qty: 5 RF: 0 alprazolam 0.5 mg Tablet 0.5 mg PO TID PRN (Reason: Anxiety) RF: 0 hydroxyzine HCl 50 mg Tablet 50 mg PO TID PRN (Reason: Anxiety) RF: 0 mirtazapine 45 mg Tablet 45 mg PO BEDTIME RF: 0 lisinopril 40 mg Tablet 40 mg PO DAILY RF: 0 multivitamin Capsule 1 cap PO DAILY RF: 0 sertraline 50 mg Tablet 50 mg PO BEDTIME RF: 0 aripiprazole 2 mg Tablet 2 mg PO BEDTIME RF: 0 cholecalciferol (vitamin D3) 25 mcg (1,000 unit) Tablet 25 mcg PO BID RF: 0 omeprazole 20 mg Tablet,Delayed Release (Dr/Ec) 20 mg PO DAILY RF: 0 linaclotide 145 mcg Capsule 145 mcg PO DAILY RF: 0 diphenhydramine HCl [Benadryl] 25 mg capsule 25 mg PO BEDTIME Qty: 7 RF: 0 Calmoseptine 0.44-20.6 % ointment 1 appl topical QID PRN (Reason: skin irritation) Qty: 113 RF: 0 magnesium citrate Solution 150 ml PO DAILY PRN (Reason: constipation) Qty: 296 RF: 0
== END 2021-02-13 05:35 | disposition left against medical advice (07) ==
PROVIDERS: Emergency Provider Emergency Medicine Emergency Medical Services; PCP Internal Medicine Geriatric Medicine
DX: Z76.0 Encounter for issue of repeat prescription (principal); F41.0 Panic disorder [episodic paroxysmal anxiety]; I10 Essential (primary) hypertension
CPT/HCPCS: 99284

== ENCOUNTER 2021-02-27 04:00 | Emergency (ER) | payer MEDICARE, MEDICAID, SELFPAY ==
--- NOTE | 2021-02-27 04:49 | ED.GENADULT ---
HPI - General Adult General Chief complaint: Anxiety Stated complaint: Anxiety/High Blood Pressure Time Seen by Provider: 02/27/21 04:48 Source: patient Mode of arrival: ambulatory Limitations: no limitations History of Present Illness HPI narrative: Patient with anxiety frequent ED visits ran out of her alprazolam comes here for anxiety says blood pressures feels high was 166/89 on arrival complaining of headache and slightly. Patient will be getting her medication today in the morning by her [employer] ANA[employer]ST Related Data Home Medications Medication Instructions Recorded Confirmed alprazolam 0.5 mg PO TID PRN 08/09/20 02/05/21 aripiprazole 2 mg PO BEDTIME 08/09/20 02/05/21 cholecalciferol (vitamin D3) 25 mcg PO BID 08/09/20 02/05/21 hydroxyzine HCl 50 mg PO TID PRN 08/09/20 02/05/21 linaclotide 145 mcg PO DAILY 08/09/20 02/05/21 lisinopril 40 mg PO DAILY 08/09/20 02/05/21 mirtazapine 45 mg PO BEDTIME 08/09/20 02/05/21 multivitamin 1 cap PO DAILY 08/09/20 02/05/21 omeprazole 20 mg PO DAILY 08/09/20 02/05/21 sertraline 50 mg PO BEDTIME 08/09/20 02/05/21 Previous Rx's Medication Instructions Recorded escitalopram oxalate 10 mg tablet 10 mg PO DAILY #30 tab 09/06/20 acetaminophen 325 mg PO QID PRN #30 cap 09/16/20 aspirin 81 mg tablet,delayed 81 mg PO BEDTIME #90 tab 09/28/20 release metoprolol succinate 50 mg 50 mg PO DAILY #90 tab 09/28/20 tablet,extended release 24 hr menthol 0.44 %-zinc oxide 20.6 % 1 appl TOPICAL QID PRN #113 g 12/13/20 topical ointment magnesium citrate 150 ml PO DAILY PRN #296 ml 12/14/20 diphenhydramine HCl [Benadryl] 25 mg PO BEDTIME #7 cap 12/25/20 melatonin 10 mg PO .nightly #5 tab 01/07/21 Allergies Allergy/AdvReac Type Severity Reaction Status Date / Time penicillin G [Penicillin G] Allergy Severe ITCHY/RASH Verified 02/13/21 03:32 Sulfa (Sulfonamide Allergy Severe ITCHY,RASH, Verified 02/13/21 03:32 Antibiotics) rash [Sulfa (Sulfonamides)] trimethoprim [From Bactrim] Allergy Severe HIVES Verified 02/13/21 03:32 penicillin V Allergy Unknown rash Verified 02/13/21 03:32 sulfacetamide Allergy Unknown unknown Verified 02/13/21 03:32 [From Sulfacet-R] sulfur [From Sulfacet-R] Allergy Unknown unknown Verified 02/13/21 03:32 Review of Systems Review of Systems: Constitutional : No Weight loss, No Fever, No Chills ENT/Mouth : No sore throat, No Rhinorrhea Eyes: No Eye Pain, No Swelling Cardiovascular : No Chest Pain, no palpitations Respiratory : No Cough, No Sputum, no shortness of breath Gastrointestinal : no Nausea, No Vomiting, No Diarrhea, No abdominal Pain, no black stools Genitourinary : No Dysuria, No Urinary Frequency Musculoskeletal : No joint pain, No Myalgias, No Joint Swelling Skin : No Skin Lesions, No rash Neuro : No Weakness, No Numbness, No Dizziness, + Headache Psych : No Anxiety/Panic, No Depression Heme/Lymph: No Bruising, No Lymphadenopathy Endocrine : No Polyuria, No Polydipsia All other systems reviewed and are negative [facility] Past Medical History Medical History Anxiety Arthritis Chronic constipation Dementia Essential hypertension High blood pressure PAC (premature atrial contraction) PVC (premature ventricular contraction) SVT (supraventricular tachycardia) Vertigo Surgical History No pertinent past surgical history Social History Social History Alcohol intake: unknown Smoking Status: Never smoker Advance Directives: No Physical Exam Vital Signs: Vital Signs: Last Vital Signs Temp 98.1 F 02/27/21 04:50 Pulse 80 02/27/21 04:50 Resp 18 02/27/21 04:50 BP 166/89 H 02/27/21 04:50 Pulse Ox 99 02/27/21 04:50 Body Mass Index 21.4 Appearance: Alert. Oriented X3. No acute distress. Anxious Eyes: Pupils equal, round and reactive to light. ENT: Pharynx normal. Neck: Normal inspection. Neck supple. CVS: Normal heart rate and rhythm. Pulses normal. Respiratory: No respiratory distress. Breath sounds normal. Abdomen: Soft and nontender. Bowel sounds are present, no mass palpable, no CVA tenderness Skin: Skin warm and dry. Normal skin color. Normal skin turgor. Extremities: No lower extremity edema. Neuro: Oriented X 3. No motor deficit. No sensory deficit. Discharge Plan Discharge Clinical Impression: Generalized anxiety disorder with panic attacks Patient Disposition: Home, Self-Care Instructions: Anxiety (ED) Additional Instructions: Take your medication as prescribed by your PCP Prescriptions: No Action escitalopram oxalate 10 mg tablet 10 mg PO DAILY Qty: 30 RF: 1 metoprolol succinate 50 mg tablet extended release 24 hr 50 mg PO DAILY Qty: 90 RF: 2 aspirin 81 mg tablet,delayed release (DR/EC) 81 mg PO BEDTIME Qty: 90 RF: 2 acetaminophen 325 mg capsule 325 mg PO QID PRN (Reason: fever or pain) Qty: 30 RF: 0 melatonin 10 mg tablet extended release 10 mg PO .nightly Qty: 5 RF: 0 alprazolam 0.5 mg Tablet 0.5 mg PO TID PRN (Reason: Anxiety) RF: 0 hydroxyzine HCl 50 mg Tablet 50 mg PO TID PRN (Reason: Anxiety) RF: 0 mirtazapine 45 mg Tablet 45 mg PO BEDTIME RF: 0 lisinopril 40 mg Tablet 40 mg PO DAILY RF: 0 multivitamin Capsule 1 cap PO DAILY RF: 0 sertraline 50 mg Tablet 50 mg PO BEDTIME RF: 0 aripiprazole 2 mg Tablet 2 mg PO BEDTIME RF: 0 cholecalciferol (vitamin D3) 25 mcg (1,000 unit) Tablet 25 mcg PO BID RF: 0 omeprazole 20 mg Tablet,Delayed Release (Dr/Ec) 20 mg PO DAILY RF: 0 linaclotide 145 mcg Capsule 145 mcg PO DAILY RF: 0 diphenhydramine HCl [Benadryl] 25 mg capsule 25 mg PO BEDTIME Qty: 7 RF: 0 Calmoseptine 0.44-20.6 % ointment 1 appl topical QID PRN (Reason: skin irritation) Qty: 113 RF: 0 magnesium citrate Solution 150 ml PO DAILY PRN (Reason: constipation) Qty: 296 RF: 0
[2021-02-27 04:50] VITALS: BP 166/89; PULSE 80; RESP 18; TEMP 36.7; O2SAT 99; BMI 21.4
[2021-02-27] MEDS: Acetaminophen 325 MG TABLET 650 MG PO (05:07)
[2021-02-27] MEDS: ALPRAZolam 0.5 MG TABLET PO (05:07)
== END 2021-02-27 05:24 | disposition home or self-care (01) ==
PROVIDERS: Emergency Provider Internal Medicine; PCP Internal Medicine Geriatric Medicine
DX: F41.1 Generalized anxiety disorder (principal); F41.0 Panic disorder [episodic paroxysmal anxiety]; I10 Essential (primary) hypertension; Z79.899 Other long term (current) drug therapy
CPT/HCPCS: 99283; 99284

== ENCOUNTER 2021-03-06 05:23 | Emergency (ER) | payer MEDICARE, MEDICAID, SELFPAY ==
[2021-03-06 05:35] VITALS: BP 167/81; PULSE 88; RESP 20; TEMP 36.1; O2SAT 99; BMI 24.1
[2021-03-06] MEDS: hydrOXYzine HCL 25 MG TABLET PO (06:35)
--- NOTE | 2021-03-06 07:34 | ED.GENADULT ---
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 this morning. Otherwise, patient denies any fever, chills, shortness of breath, chest pain/palpitations, GI symptoms or symptoms. Patient also endorses that she is having some left ear discomfort. Related Data Home Medications Medication Instructions Recorded Confirmed alprazolam 0.5 mg PO TID PRN 08/09/20 02/05/21 aripiprazole 2 mg PO BEDTIME 08/09/20 02/05/21 cholecalciferol (vitamin D3) 25 mcg PO BID 08/09/20 02/05/21 hydroxyzine HCl 50 mg PO TID PRN 08/09/20 02/05/21 linaclotide 145 mcg PO DAILY 08/09/20 02/05/21 lisinopril 40 mg PO DAILY 08/09/20 02/05/21 mirtazapine 45 mg PO BEDTIME 08/09/20 02/05/21 multivitamin 1 cap PO DAILY 08/09/20 02/05/21 omeprazole 20 mg PO DAILY 08/09/20 02/05/21 sertraline 50 mg PO BEDTIME 08/09/20 02/05/21 Previous Rx's Medication Instructions Recorded escitalopram oxalate 10 mg tablet 10 mg PO DAILY #30 tab 09/06/20 acetaminophen 325 mg PO QID PRN #30 cap 09/16/20 aspirin 81 mg tablet,delayed 81 mg PO BEDTIME #90 tab 09/28/20 release metoprolol succinate 50 mg 50 mg PO DAILY #90 tab 09/28/20 tablet,extended release 24 hr menthol 0.44 %-zinc oxide 20.6 % 1 appl TOPICAL QID PRN #113 g 12/13/20 topical ointment magnesium citrate 150 ml PO DAILY PRN #296 ml 12/14/20 diphenhydramine HCl [Benadryl] 25 mg PO BEDTIME #7 cap 12/25/20 melatonin 10 mg PO .nightly #5 tab 01/07/21 Allergies Allergy/AdvReac Type Severity Reaction Status Date / Time penicillin G [Penicillin G] Allergy Severe ITCHY/RASH Verified 02/13/21 03:32 Sulfa (Sulfonamide Allergy Severe ITCHY,RASH, Verified 02/13/21 03:32 Antibiotics) rash [Sulfa (Sulfonamides)] trimethoprim [From Bactrim] Allergy Severe HIVES Verified 02/13/21 03:32 penicillin V Allergy Unknown rash Verified 02/13/21 03:32 sulfacetamide Allergy Unknown unknown Verified 02/13/21 03:32 [From Sulfacet-R] sulfur [From Sulfacet-R] Allergy Unknown unknown Verified 02/13/21 03:32 Review of Systems Review of Systems: Pertinent positives and negatives as stated in HPI and 10 point review of systems is otherwise negative. PMFSH Past Medical History Source: nursing notes reviewed Medical History Anxiety Arthritis Chronic constipation Dementia Essential hypertension High blood pressure PAC (premature atrial contraction) PVC (premature ventricular contraction) SVT (supraventricular tachycardia) Vertigo Surgical History No pertinent past surgical history Social History Social History Alcohol intake: unknown Smoking Status: Never smoker Advance Directives: No Physical Exam Vital Signs: Vital Signs: Last Vital Signs Temp 97 F 03/06/21 05:35 Pulse 88 03/06/21 05:35 Resp 20 03/06/21 05:35 BP 167/81 H 03/06/21 05:35 Pulse Ox 99 03/06/21 05:35 Body Mass Index 24.1 VITAL SIGNS: Reviewed. GENERAL: Well developed, well nourished, in no acute distress. HEAD: Normocephalic/atraumatic EYES: PERRLA, EOMI intact without pain, no nystagmus EARS: Ext canals demonstrate some mild cerumen with Q-tip particles, but nonobstructive NOSE: Nares patent bilateral OROPHARYNX: no oral lesions noted, posterior pharynx clear NECK: Supple, no adenopathy LUNGS: Normal breath sounds. No adventitious sounds or accessory muscle use. SpO2<99> CARDIOVASCULAR: Regular rate and rhythm without noted murmurs ABDOMEN: Soft, non-tender, non-distended with bowel sounds. NEUROLOGIC: Alert and oriented x 4. 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 Patient was provided with a hydroxyzine as well as counseling her regarding the ear cerumen/Q-tip particles with instructions to avoid Q-tips in the future and use [id number] earwax drops. Patient was then discharged in stable condition. Discharge Plan Discharge Clinical Impression: Anxiety Patient Disposition: Home, Self-Care Instructions: Anxiety (ED) Additional Instructions: 1. Reanude todos los medicamentos caseros seg?n lo prescrito. 2. Steve un seguimiento con clark proveedor de atenci?n primaria llamando al consultorio hoy mismo para suzy reevaluaci?n de clark o?do narda. Regrese al departamento de emergencias por cualquier empeoramiento mechelle de kelsi s?ntomas. Prescriptions: No Action escitalopram oxalate 10 mg tablet 10 mg PO DAILY Qty: 30 RF: 1 metoprolol succinate 50 mg tablet extended release 24 hr 50 mg PO DAILY Qty: 90 RF: 2 aspirin 81 mg tablet,delayed release (DR/EC) 81 mg PO BEDTIME Qty: 90 RF: 2 acetaminophen 325 mg capsule 325 mg PO QID PRN (Reason: fever or pain) Qty: 30 RF: 0 melatonin 10 mg tablet extended release 10 mg PO .nightly Qty: 5 RF: 0 alprazolam 0.5 mg Tablet 0.5 mg PO TID PRN (Reason: Anxiety) RF: 0 hydroxyzine HCl 50 mg Tablet 50 mg PO TID PRN (Reason: Anxiety) RF: 0 mirtazapine 45 mg Tablet 45 mg PO BEDTIME RF: 0 lisinopril 40 mg Tablet 40 mg PO DAILY RF: 0 multivitamin Capsule 1 cap PO DAILY RF: 0 sertraline 50 mg Tablet 50 mg PO BEDTIME RF: 0 aripiprazole 2 mg Tablet 2 mg PO BEDTIME RF: 0 cholecalciferol (vitamin D3) 25 mcg (1,000 unit) Tablet 25 mcg PO BID RF: 0 omeprazole 20 mg Tablet,Delayed Release (Dr/Ec) 20 mg PO DAILY RF: 0 linaclotide 145 mcg Capsule 145 mcg PO DAILY RF: 0 diphenhydramine HCl [Benadryl] 25 mg capsule 25 mg PO BEDTIME Qty: 7 RF: 0 Calmoseptine 0.44-20.6 % ointment 1 appl topical QID PRN (Reason: skin irritation) Qty: 113 RF: 0 magnesium citrate Solution 150 ml PO DAILY PRN (Reason: constipation) Qty: 296 RF: 0 Referrals: Name,MD Nitin [Primary Care Provider] - 2 days (Re-evaluation of left ear, questionable Q-tip particulate inside.) Interventions: ED Discharge Assessment Last Done: 03/06/21 06:35 Discharge Date/Time: 03/06/21 06:36 Print Language: Latvian
== END 2021-03-06 06:36 | disposition home or self-care (01) ==
PROVIDERS: Emergency Provider Student in an Organized Health Care Education/Training Program; PCP Internal Medicine Geriatric Medicine
DX: F41.9 Anxiety disorder, unspecified (principal); Z76.5 Malingerer [conscious simulation]; I10 Essential (primary) hypertension
CPT/HCPCS: 99283

== ENCOUNTER 2021-03-12 08:46 | Emergency (ER) | payer MEDICARE, MEDICAID, SELFPAY ==
[2021-03-12 08:47] VITALS: BP 156/72; PULSE 88; RESP 20; TEMP 36.6; O2SAT 99; BMI 24.0
== END 2021-03-12 10:01 | disposition left against medical advice (07) ==
PROVIDERS: Emergency Provider Emergency Medicine; PCP Internal Medicine Geriatric Medicine
DX: R42 Dizziness and giddiness (principal); R11.0 Nausea
CPT/HCPCS: 99282

== ENCOUNTER 2021-03-15 06:14 | Emergency (ER) | payer MEDICARE, MEDICAID, SELFPAY ==
[2021-03-15 06:29] VITALS: BP 142/72; PULSE 92; RESP 16; TEMP 36.6; O2SAT 97; BMI 24.0
--- NOTE | 2021-03-15 06:41 | ED.WOUNDLAC ---
HPI - Wound/Laceration General Chief Complaint: Wound/Laceration Stated Complaint: Finger lac Time Seen by Provider: 03/15/21 06:40 Source: patient Mode of arrival: ambulatory Limitations: no limitations History of Present Illness HPI narrative: cut middle finger on scissors last night, tried to glue it, tetanus 2017 Onset (ago): day(s) (last night) Extremity Location: left: hand (middle finger) Place: home Patient tetanus UTD: Yes Context: accidental Associated symptoms: none Treatments prior to arrival: bandage and other (tried glue) Related Data Home Medications Medication Instructions Recorded Confirmed alprazolam 0.5 mg PO TID PRN 08/09/20 02/05/21 aripiprazole 2 mg PO BEDTIME 08/09/20 02/05/21 cholecalciferol (vitamin D3) 25 mcg PO BID 08/09/20 02/05/21 hydroxyzine HCl 50 mg PO TID PRN 08/09/20 02/05/21 linaclotide 145 mcg PO DAILY 08/09/20 02/05/21 lisinopril 40 mg PO DAILY 08/09/20 02/05/21 mirtazapine 45 mg PO BEDTIME 08/09/20 02/05/21 multivitamin 1 cap PO DAILY 08/09/20 02/05/21 omeprazole 20 mg PO DAILY 08/09/20 02/05/21 sertraline 50 mg PO BEDTIME 08/09/20 02/05/21 Previous Rx's Medication Instructions Recorded escitalopram oxalate 10 mg tablet 10 mg PO DAILY #30 tab 09/06/20 acetaminophen 325 mg PO QID PRN #30 cap 09/16/20 aspirin 81 mg tablet,delayed 81 mg PO BEDTIME #90 tab 09/28/20 release metoprolol succinate 50 mg 50 mg PO DAILY #90 tab 09/28/20 tablet,extended release 24 hr menthol 0.44 %-zinc oxide 20.6 % 1 appl TOPICAL QID PRN #113 g 12/13/20 topical ointment magnesium citrate 150 ml PO DAILY PRN #296 ml 12/14/20 diphenhydramine HCl [Benadryl] 25 mg PO BEDTIME #7 cap 12/25/20 melatonin 10 mg PO .nightly #5 tab 01/07/21 Allergies Allergy/AdvReac Type Severity Reaction Status Date / Time penicillin G [Penicillin G] Allergy Severe ITCHY/RASH Verified 02/13/21 03:32 Sulfa (Sulfonamide Allergy Severe ITCHY,RASH, Verified 02/13/21 03:32 Antibiotics) rash [Sulfa (Sulfonamides)] trimethoprim [From Bactrim] Allergy Severe HIVES Verified 02/13/21 03:32 penicillin V Allergy Unknown rash Verified 02/13/21 03:32 sulfacetamide Allergy Unknown unknown Verified 02/13/21 03:32 [From Sulfacet-R] sulfur [From Sulfacet-R] Allergy Unknown unknown Verified 02/13/21 03:32 Review of Systems Review of Systems: Constitutional : No Fever, No Chills, Cardiovascular : No Chest Pain, No SOB Respiratory : No Dyspnea Gastrointestinal : No abdominal pain Musculoskeletal : No Joint Swelling Skin : No rash, positive skin laceration Neuro : No Weakness, No Numbness Psych : No SI/HI PMFSH Past Medical History Attestation statement: The following information was validated with the patient. Medical History Anxiety Arthritis Chronic constipation Dementia Essential hypertension High blood pressure PAC (premature atrial contraction) PVC (premature ventricular contraction) SVT (supraventricular tachycardia) Vertigo Surgical History No pertinent past surgical history Social History Social History Alcohol intake: unknown Smoking Status: Never smoker Advance Directives: No Advance Directives Information Provided: No Physical Exam Vital Signs: Vital Signs: Last Vital Signs Temp 97.9 F 03/15/21 06:29 Pulse 92 03/15/21 06:29 Resp 16 03/15/21 06:29 BP 142/72 H 03/15/21 06:29 Pulse Ox 97 03/15/21 06:29 Body Mass Index 24.0 Appearance: Alert. Oriented X3. No acute distress. Eyes: Pupils equal, round and reactive to light. ENT: Pharynx normal. Neck: Normal inspection. Neck supple. CVS: Normal heart rate and rhythm. Pulses normal. Respiratory: No respiratory distress. Breath sounds normal. Abdomen: Soft and nontender. Skin: Skin warm and dry. Normal skin color. Normal skin turgor. Extremities: No lower extremity edema. L 3rd middle finger 2cm avulsion over PIP superficial full ROM distal NV intact Neuro: Oriented X 3. No motor deficit. No sensory deficit. Procedures Laceration Laceration 1: Site: hand Side (If applicable): left Size (cm): 2 Description: flap Depth: simple, single layer Local Anesthetic: lidocaine 1% Amount of anesthesia used (mL): 2 Pre-repair: wound explored and irrigated extensively Skin layer closed with: nylon Size (cm): 5-0 Number of sutures: 3 Technique: simple, interrupted Orthopedic Splinting/Casting Injury #1: Side: left Upper Extremity Injury Location: finger Upper Extremity Immobilizer: finger (other) MDM - Wound/Laceration MDM Narrative Medical decision making narrative: 75 yo female with HTN, anxiety comes in with superficial laceration of middle finger left hand on scissors, wound repair, no signs of tendon injury no concern for FB Discharge Plan Discharge Clinical Impression: Laceration Patient Disposition: Home, Self-Care Instructions: Finger Laceration (ED) Additional Instructions: return to ED for any worsening symptoms or concerns wear a splint for the next 5 days, okay to shower not okay to soak in sink and tub SUTURE REMOVAL IN 7 DAYS COME BACK TO EMERGENCY DEPARTMENT Prescriptions: No Action escitalopram oxalate 10 mg tablet 10 mg PO DAILY Qty: 30 RF: 1 metoprolol succinate 50 mg tablet extended release 24 hr 50 mg PO DAILY Qty: 90 RF: 2 aspirin 81 mg tablet,delayed release (DR/EC) 81 mg PO BEDTIME Qty: 90 RF: 2 acetaminophen 325 mg capsule 325 mg PO QID PRN (Reason: fever or pain) Qty: 30 RF: 0 melatonin 10 mg tablet extended release 10 mg PO .nightly Qty: 5 RF: 0 alprazolam 0.5 mg Tablet 0.5 mg PO TID PRN (Reason: Anxiety) RF: 0 hydroxyzine HCl 50 mg Tablet 50 mg PO TID PRN (Reason: Anxiety) RF: 0 mirtazapine 45 mg Tablet 45 mg PO BEDTIME RF: 0 lisinopril 40 mg Tablet 40 mg PO DAILY RF: 0 multivitamin Capsule 1 cap PO DAILY RF: 0 sertraline 50 mg Tablet 50 mg PO BEDTIME RF: 0 aripiprazole 2 mg Tablet 2 mg PO BEDTIME RF: 0 cholecalciferol (vitamin D3) 25 mcg (1,000 unit) Tablet 25 mcg PO BID RF: 0 omeprazole 20 mg Tablet,Delayed Release (Dr/Ec) 20 mg PO DAILY RF: 0 linaclotide 145 mcg Capsule 145 mcg PO DAILY RF: 0 diphenhydramine HCl [Benadryl] 25 mg capsule 25 mg PO BEDTIME Qty: 7 RF: 0 Calmoseptine 0.44-20.6 % ointment 1 appl topical QID PRN (Reason: skin irritation) Qty: 113 RF: 0 magnesium citrate Solution 150 ml PO DAILY PRN (Reason: constipation) Qty: 296 RF: 0 Print Language: [place] Island[place]
== END 2021-03-15 07:31 | disposition home or self-care (01) ==
PROVIDERS: Emergency Provider Emergency Medicine; PCP Internal Medicine Geriatric Medicine
DX: S61.213A Laceration without foreign body of left middle finger without damage to nail, initial encounter (principal); W27.2XXA Contact with scissors, initial encounter; I10 Essential (primary) hypertension; F03.90 Unspecified dementia, unspecified severity, without behavioral disturbance, psychotic disturbance, mood disturbance, and anxiety; Y93.9 Activity, unspecified; Y92.039 Unspecified place in apartment as the place of occurrence of the external cause; Y99.9 Unspecified external cause status
CPT/HCPCS: 12002; 29130; 90471; 99283; 99284

== ENCOUNTER 2021-03-22 04:38 | Emergency (ER) | payer MEDICARE, MEDICAID, SELFPAY ==
[2021-03-22 05:08] VITALS: BP 132/67; PULSE 83; RESP 18; TEMP 36.7; O2SAT 98; BMI 24.0
--- NOTE | 2021-03-22 05:30 | ED.WOUNDLAC ---
HPI - Wound/Laceration General Chief Complaint: Wound/Laceration Stated Complaint: remove stitches Time Seen by Provider: 03/22/21 05:25 Source: patient Mode of arrival: ambulatory Limitations: no limitations History of Present Illness HPI narrative: Patient comes emergency room for stitches removal. Patient states that her hand/index right finger has been healing well. Patient has not had any signs of cellulitis, states she feels otherwise well. Related Data Home Medications Medication Instructions Recorded Confirmed alprazolam 0.5 mg PO TID PRN 08/09/20 02/05/21 aripiprazole 2 mg PO BEDTIME 08/09/20 02/05/21 cholecalciferol (vitamin D3) 25 mcg PO BID 08/09/20 02/05/21 hydroxyzine HCl 50 mg PO TID PRN 08/09/20 02/05/21 linaclotide 145 mcg PO DAILY 08/09/20 02/05/21 lisinopril 40 mg PO DAILY 08/09/20 02/05/21 mirtazapine 45 mg PO BEDTIME 08/09/20 02/05/21 multivitamin 1 cap PO DAILY 08/09/20 02/05/21 omeprazole 20 mg PO DAILY 08/09/20 02/05/21 sertraline 50 mg PO BEDTIME 08/09/20 02/05/21 Previous Rx's Medication Instructions Recorded escitalopram oxalate 10 mg tablet 10 mg PO DAILY #30 tab 09/06/20 acetaminophen 325 mg PO QID PRN #30 cap 09/16/20 aspirin 81 mg tablet,delayed 81 mg PO BEDTIME #90 tab 09/28/20 release metoprolol succinate 50 mg 50 mg PO DAILY #90 tab 09/28/20 tablet,extended release 24 hr menthol 0.44 %-zinc oxide 20.6 % 1 appl TOPICAL QID PRN #113 g 12/13/20 topical ointment magnesium citrate 150 ml PO DAILY PRN #296 ml 12/14/20 diphenhydramine HCl [Benadryl] 25 mg PO BEDTIME #7 cap 12/25/20 melatonin 10 mg PO .nightly #5 tab 01/07/21 Allergies Allergy/AdvReac Type Severity Reaction Status Date / Time penicillin G [Penicillin G] Allergy Severe ITCHY/RASH Verified 02/13/21 03:32 Sulfa (Sulfonamide Allergy Severe ITCHY,RASH, Verified 02/13/21 03:32 Antibiotics) rash [Sulfa (Sulfonamides)] trimethoprim [From Bactrim] Allergy Severe HIVES Verified 02/13/21 03:32 penicillin V Allergy Unknown rash Verified 02/13/21 03:32 sulfacetamide Allergy Unknown unknown Verified 02/13/21 03:32 [From Sulfacet-R] sulfur [From Sulfacet-R] Allergy Unknown unknown Verified 02/13/21 03:32 Review of Systems Review of Systems: Constitutional : No Weight loss, No Fever, No Chills, No Night Sweats, No Fatigue, No Malaise ENT/Mouth : No Hearing loss, No Ear Pain, No Nasal Congestion, No Sinus Pain, No Hoarseness, No sore throat, No Rhinorrhea, No Swallowing Difficulty Eyes: No Eye Pain, No Swelling, No Redness, No Foreign Body, No Discharge, No Vision Changes Cardiovascular : No Chest Pain, No SOB, No Dyspnea on Exertion, No Orthopnea, No Edema, No Palpitations Respiratory : No Cough, No Sputum, No Wheezing, No Smoke Exposure, No Dyspnea Gastrointestinal : No Nausea, No Vomiting, No Diarrhea, No Constipation, No abdominal Pain, No Hematochezia, No Melena Genitourinary : no irregular bleeding, No Dysuria, No Urinary Frequency, No Hematuria, No Urinary Incontinence, No Urgency, No Flank Pain, No Urinary Flow Changes, No Hesitancy Musculoskeletal : No joint pain, No Myalgias, No Joint Swelling Skin : Laceration in finger healing well, time to remove stitches Neuro : No Weakness, No Numbness, No Paresthesias, No Loss of Consciousness, No Dizziness, No Headache Psych : No Anxiety/Panic, No Depression, No SI/HI/AH/VH, No Social Issues, Heme/Lymph: No Bruising, No Bleeding,No Lymphadenopathy Endocrine : No Polyuria, No Polydipsia, No Temperature Intolerance [facility] Past Medical History Medical History Anxiety Arthritis Chronic constipation Dementia Essential hypertension High blood pressure PAC (premature atrial contraction) PVC (premature ventricular contraction) SVT (supraventricular tachycardia) Vertigo Surgical History No pertinent past surgical history Social History Social History Alcohol intake: unknown Smoking Status: Never smoker Advance Directives: No Advance Directives Information Provided: No Physical Exam Vital Signs: Vital Signs: Last Vital Signs Temp 98.0 F 03/22/21 05:08 Pulse 83 03/22/21 05:08 Resp 18 03/22/21 05:08 BP 132/67 03/22/21 05:08 Pulse Ox 98 03/22/21 05:08 Body Mass Index 24.0 Appearance: Alert. Oriented X3. No acute distress. Eyes: Pupils equal, round and reactive to light. ENT: Pharynx normal. Neck: Normal inspection. Neck supple. No lymph nodes noted. No crepitus CVS: Normal heart rate and rhythm. Pulses normal. Normal S1 and S2 Respiratory: No respiratory distress. Breath sounds normal. No Wheezing. No rales Abdomen: Soft and nontender. No rigidity. No distention. good BS x4 Skin: Skin warm and dry. Normal skin color. Normal skin turgor. Extremities: No lower extremity edema. Middle finger of left hand is healing well, no signs of cellulitis, able to flex and extend all fingers. Neuro: Oriented X 3. No motor deficit. No sensory deficit. Moving all extermities. No slurred speech. Course Course Course Narrative: Three sutures removed, tolerated well the procedure, patient's finger is healing well Discharge Plan Discharge Clinical Impression: Visit for suture removal Patient Disposition: Home, Self-Care Instructions: Stitches Removal (ED) Additional Instructions: Please follow-up with your primary care physician tomorrow. If you have any worsening or new symptoms, please return to the emergency room or call 911 Prescriptions: No Action escitalopram oxalate 10 mg tablet 10 mg PO DAILY Qty: 30 RF: 1 metoprolol succinate 50 mg tablet extended release 24 hr 50 mg PO DAILY Qty: 90 RF: 2 aspirin 81 mg tablet,delayed release (DR/EC) 81 mg PO BEDTIME Qty: 90 RF: 2 acetaminophen 325 mg capsule 325 mg PO QID PRN (Reason: fever or pain) Qty: 30 RF: 0 melatonin 10 mg tablet extended release 10 mg PO .nightly Qty: 5 RF: 0 alprazolam 0.5 mg Tablet 0.5 mg PO TID PRN (Reason: Anxiety) RF: 0 hydroxyzine HCl 50 mg Tablet 50 mg PO TID PRN (Reason: Anxiety) RF: 0 mirtazapine 45 mg Tablet 45 mg PO BEDTIME RF: 0 lisinopril 40 mg Tablet 40 mg PO DAILY RF: 0 multivitamin Capsule 1 cap PO DAILY RF: 0 sertraline 50 mg Tablet 50 mg PO BEDTIME RF: 0 aripiprazole 2 mg Tablet 2 mg PO BEDTIME RF: 0 cholecalciferol (vitamin D3) 25 mcg (1,000 unit) Tablet 25 mcg PO BID RF: 0 omeprazole 20 mg Tablet,Delayed Release (Dr/Ec) 20 mg PO DAILY RF: 0 linaclotide 145 mcg Capsule 145 mcg PO DAILY RF: 0 diphenhydramine HCl [Benadryl] 25 mg capsule 25 mg PO BEDTIME Qty: 7 RF: 0 Calmoseptine 0.44-20.6 % ointment 1 appl topical QID PRN (Reason: skin irritation) Qty: 113 RF: 0 magnesium citrate Solution 150 ml PO DAILY PRN (Reason: constipation) Qty: 296 RF: 0
--- NOTE | 2021-03-22 05:32 | PC.NURSE ---
PT HAS 3 SUTURES IN FINGER OF RIGHT HAD THAT NEED REMOVAL. PT TOLERATED REMOVAL WELL. PT WANTED TO LEAVE IMMEDIATELY FOLLOWING. PT DID NOT WANT TO WAIT FOR DISCHARGE PAPERWORK.
== END 2021-03-22 05:35 | disposition home or self-care (01) ==
PROVIDERS: Emergency Provider Emergency Medicine
DX: Z48.02 Encounter for removal of sutures (principal); S61.210D Laceration without foreign body of right index finger without damage to nail, subsequent encounter; W45.8XXD Other foreign body or object entering through skin, subsequent encounter
CPT/HCPCS: 99283

== ENCOUNTER 2021-03-22 11:24 | Emergency (ER) | payer MEDICARE, MEDICAID, SELFPAY ==
--- NOTE | ~2021-03-22 | XR_ITS ---
EXAMINATION: XR CHEST CLINICAL INFORMATION: Mid sternal chest pain COMPARISON: June 11, 2020 TECHNIQUE: AP portable view of the chest was obtained. FINDINGS: No significant abnormality is noted involving the heart, lungs, mediastinum, bony thorax or soft tissues. Marginal spurring seen throughout the thoracic spine. XR/XR chest 1V IMPRESSION: No acute disease.
[2021-03-22 11:30] VITALS: BP 173/81; PULSE 90; RESP 18; TEMP 36.1; O2SAT 98; BMI 24.0
--- NOTE | 2021-03-22 11:44 | ECG_ITS ---
Test Reason : CHEST PAIN Blood Pressure : / mmHG Vent. Rate : 085 BPM Atrial Rate : 085 BPM P-R Int : 178 ms QRS Dur : 092 ms QT Int : 352 ms P-R-T Axes : 046 -23 020 degrees QTc Int : 418 ms Normal sinus rhythm with sinus arrhythmia Minimal voltage criteria for LVH, may be normal variant Borderline ECG When compared with ECG of 15-OCT-2020 12:14, No significant change was found Referred By: Cuco Amador Electronically Signed By:KATRINA PARSONS MD
[2021-03-22] MEDS: PHENobarb/Hyoscy/Atropine/Scop 10 ML ELIXIR PO (12:08)
[2021-03-22] MEDS: Magnesium Hydrox/Alum Hydrox 30 ML ORAL.SUSP PO (12:08)
[2021-03-22] MEDS: Famotidine 20 MG TABLET PO (12:08)
[2021-03-22] MEDS: Lidocaine HCl Viscous 2 % 15 ML SOLUTION MUCOUS MEM (12:08)
[2021-03-22 12:10] LABS: MANUAL DIFF FLAG NO
[2021-03-22 12:13] LABS: Basophils Absolute Auto 0.1 X10*3/uL (0.0-0.2); Basophils Percent Auto 0.7 % (0-2); Eosinophils Absolute Auto 0.1 X10*3/uL (0.0-0.4); Eosinophils Percent Auto 0.8 % (0-4); Hematocrit 34.8 % (37-47); Hemoglobin 11.3 g/dl (12.0-16.0); Imm Gran Abs Auto 0.01 X10*3/uL (0.00-0.03); Imm Gran Pct Auto 0.1 % (0.0-0.4); Lymphocytes Absolute Auto 2.4 X10*3/uL (1.2-4.9); Mean Corpuscular HGB Conc 32.5 g/dl (31.0-35.0); Mean Corpuscular Volume 86.1 fL (80-98); Mean Platelet Volume 10.2 fL (9.4-12.3); Monocytes Absolute Auto 0.7 X10*3/uL (0.1-1.2); Monocytes Percent Auto 8.9 % (2-11); Neutrophils Absolute Auto 4.3 X10*3/uL (2.0-8.3); Neutrophils Percent Auto 57.5 % (45-73); Platelet Count 179 X10*3/uL (160-400); Red Blood Count 4.04 X10*6/uL (4.20-5.50); Red Cell Distribution Width 14.3 % (11.0-16.0); White Blood Count 7.5 X10*3/uL (4.8-10.8)
--- NOTE | 2021-03-22 12:13 | ED.CHESTPAIN ---
HPI - Chest Pain General Chief Complaint: Chest Pain Stated Complaint: chest pain Time Seen by Provider: 03/22/21 11:38 Source: patient Mode of arrival: ambulatory Limitations: no limitations History of Present Illness HPI narrative: Patient presents to ED for midsternal chest/epigastric pain that began 2 hours ago. Patient describes discomfort as gassy sensation and continuous burping. Paatient states also feeling anxious. patient denies any swelling of lower extrremites, coughing up blood, fever, chills, chest pain on inspiration, recent surgery, recent travel, history of DVT or any estrogen/ control use. MD complaint: chest discomfort Related Data Home Medications Medication Instructions Recorded Confirmed alprazolam 0.5 mg PO TID PRN 08/09/20 02/05/21 aripiprazole 2 mg PO BEDTIME 08/09/20 02/05/21 cholecalciferol (vitamin D3) 25 mcg PO BID 08/09/20 02/05/21 hydroxyzine HCl 50 mg PO TID PRN 08/09/20 02/05/21 linaclotide 145 mcg PO DAILY 08/09/20 02/05/21 lisinopril 40 mg PO DAILY 08/09/20 02/05/21 mirtazapine 45 mg PO BEDTIME 08/09/20 02/05/21 multivitamin 1 cap PO DAILY 08/09/20 02/05/21 omeprazole 20 mg PO DAILY 08/09/20 02/05/21 sertraline 50 mg PO BEDTIME 08/09/20 02/05/21 Previous Rx's Medication Instructions Recorded escitalopram oxalate 10 mg tablet 10 mg PO DAILY #30 tab 09/06/20 acetaminophen 325 mg PO QID PRN #30 cap 09/16/20 aspirin 81 mg tablet,delayed 81 mg PO BEDTIME #90 tab 09/28/20 release metoprolol succinate 50 mg 50 mg PO DAILY #90 tab 09/28/20 tablet,extended release 24 hr menthol 0.44 %-zinc oxide 20.6 % 1 appl TOPICAL QID PRN #113 g 12/13/20 topical ointment magnesium citrate 150 ml PO DAILY PRN #296 ml 12/14/20 diphenhydramine HCl [Benadryl] 25 mg PO BEDTIME #7 cap 12/25/20 melatonin 10 mg PO .nightly #5 tab 01/07/21 Allergies Allergy/AdvReac Type Severity Reaction Status Date / Time penicillin G [Penicillin G] Allergy Severe ITCHY/RASH Verified 02/13/21 03:32 Sulfa (Sulfonamide Allergy Severe ITCHY,RASH, Verified 02/13/21 03:32 Antibiotics) rash [Sulfa (Sulfonamides)] trimethoprim [From Bactrim] Allergy Severe HIVES Verified 02/13/21 03:32 penicillin V Allergy Unknown rash Verified 02/13/21 03:32 sulfacetamide Allergy Unknown unknown Verified 02/13/21 03:32 [From Sulfacet-R] sulfur [From Sulfacet-R] Allergy Unknown unknown Verified 02/13/21 03:32 Review of Systems Review of Systems: Yes all other systems are reviewed and are negative Constitutional: Constitutional: Reports as per HPI and Reports no additional constitutional complaints Eyes: Eyes: Reports as per HPI and Reports no additional eye complaints ENT: Reports system reviewed and no additional complaints, except as documented and Reports as per HPI Cardiovascular: Cardiovascular: Reports as per HPI, Reports no additional cardiovascular complaints and Reports chest pain Respiratory: Respiratory: Reports as per HPI and Reports no additional respiratory complaints Gastrointestinal: Gastrointestinal: Reports as per HPI, Reports no additional gastrointestinal complaints and Reports dyspepsia Genitourinary: Genitourinary: Reports no additional female genitourinary complaints and Reports as per HPI Musculoskeletal: Musculoskeletal: Reports no additional musculoskeletal complaints and Reports as per HPI Neurologic: Reports system reviewed and no additional complaints, except as documented and Reports as per HPI Comments: anxious Psychiatric: Psychiatric: Reports no additional psychiatric complaints and Reports as per HPI Comments: anxious PMFSH Past Medical History Medical History Anxiety Arthritis Chronic constipation Dementia Essential hypertension High blood pressure PAC (premature atrial contraction) PVC (premature ventricular contraction) SVT (supraventricular tachycardia) Vertigo Surgical History No pertinent past surgical history Social History Social History Alcohol intake: unknown Smoking Status: Never smoker Advance Directives: No Advance Directives Information Provided: No Physical Exam Vital Signs: Vital Signs: Last Vital Signs Temp 97.0 F 03/22/21 11:30 Pulse 90 03/22/21 11:30 Resp 18 03/22/21 11:30 BP 173/81 H 03/22/21 11:30 Pulse Ox 98 03/22/21 11:30 Body Mass Index 24.0 Const: General: cooperative, healthy appearing, comfortable, no acute distress, well developed, alert and awake Orientation/consciousness: patient oriented x3 HENMT: Head: Yes normal to inspection, Yes No palpable skull fracture present, Yes normocephalic, Yes atraumatic and No abrasion Eyes: General: appearance normal, both eyes and all related structures Neck: Neck: Yes normal visual inspection, Yes full ROM, Yes no lymphadenopathy, Yes no meningeal signs, Yes trachea midline, Yes supple and No tender Chest: Chest palpation & inspection: normal inspection of the chest and normal palpation of entire chest wall Resp: Effort & Inspection: normal respiratory effort and able to speak in complete sentences Auscultation: clear to auscultation bilaterally Cardio: Jugular venous distension: no JVD Heart sounds: S1 normal heart sound present and S2 normal heart sound present GI: Inspection: Yes normal to inspection and No abdominal wall ecchymosis Palpation (GI): Soft to palpation, not firm, nontender, no guarding and not rigid : General: No CVA tenderness and Yes no CVA tenderness Back/Spine/Pelvis: Back: no CVA tenderness, No CVA tenderness and No back tenderness Skin: General skin exam: no rashes or lesions noted and elasticity normal Neuro: General: patient oriented x3, gait normal, no meningeal signs and CN's II-XI intact bilaterally Cranial nerves: Yes CN's II-XII intact bilaterally Extrem: Other: Lower extremities negative for swelling, pitting edema, or calf tenderness. Psych: Other: anxious Appearance: grossly normal, well kempt and not disheveled Course Course Course Narrative: Patient known to the ED presenting for anxiety and requesting ativan. patient presently requesting ativan. Due to age and risk factors patient will have cardiac evaluation. Ekg and labs ordered. Since patient complain of dyspepsia symptoms patient will have GI cocktail. not suspecting PE. Triage is wrong. patient epigastric sensation described as dyspepsia. Reevaluation(s) Reevaluation #1: Patient does not want to stay for 2nd troponin. Initial troponin came back negative and COVID swab negative chest x-ray normal. Patient was informed due to her stating symptoms occurring 2 hours before coming to the ED she will need a 2nd troponin to rule out heart attack, but patient refused. Patient states her symptoms resolved. Patient inform risk of , disability, decreased quality of life, and heart attack but patient still wanted to sign out against medical advice. Patient informed to return to the ED if symptoms return or worsen. Presently not suspecting PE, but patient was educated on symptoms of PE before signing out against medical advice and also told to return to the ED if she had PE symptoms. EKG negative for STEMI. MDM - Chest Pain MDM Narrative Medical decision making narrative: Chest pain. GERD. Anxiety Lab Data Result diagrams: 03/22/21 12:04 03/22/21 12:04 Labs: Lab Results 03/22/21 03/22/21 03/22/21 Range/Units 12:04 12:04 12:04 WBC 7.5 (4.8-10.8) X10*3/uL RBC 4.04 L (4.20-5.50) X10*6/uL Hgb 11.3 L (12.0-16.0) g/dl Hct 34.8 L (37-47) % MCV 86.1 (80-98) fL MCH 28.0 (27.0-33.0) pg MCHC 32.5 (31.0-35.0) g/dl RDW 14.3 (11.0-16.0) % Plt Count 179 D (160-400) X10*3/uL MPV 10.2 (9.4-12.3) fL Immature Gran % (Auto) 0.1 (0.0-0.4) % Neut % (Auto) 57.5 (45-73) % Lymph % (Auto) 32.0 (20-40) % [place] % (Auto) 8.9 (2-11) % Eos % (Auto) 0.8 (0-4) % Baso % (Auto) 0.7 (0-2) % Lymph # (Auto) 2.4 (1.2-4.9) X10*3/uL [place] # (Auto) 0.7 (0.1-1.2) X10*3/uL Eos # (Auto) 0.1 (0.0-0.4) X10*3/uL Baso # (Auto) 0.1 (0.0-0.2) X10*3/uL Abs Immat Gran (auto) 0.01 (0.00-0.03) X10*3/uL Absolute Neuts (auto) 4.3 (2.0-8.3) X10*3/uL Absolute Nucleated RBC 0.000 (0.0-0.012) X10*3/uL Nucleated RBC % (auto) 0.0 (0.0-0.2) /100WBC PT 11.3 (10.8-13.0) SEC INR 1.0 (0.9-1.1) APTT 30.7 (24.1-38.0) SEC Sodium 137 (135-145) mmol/L Potassium 4.3 (3.3-5.1) mmol/L Chloride 101 (96-108) mmol/L Carbon Dioxide 29 (22-29) mmol/L Anion Gap 11 L (12-20) BUN 31 H (9-16) mg/dL Creatinine 0.95 (0.5-1.4) mg/dL Estim Creat Clear Calc 50.0 Estimated GFR 57 Random Glucose 143 H (60-115) mg/dL Calcium 9.3 (8.4-10.2) mg/dL Total Bilirubin 0.2 (0.0-1.0) mg/dL Direct Bilirubin (0.0-0.5) mg/dL AST 23 (5-31) U/L ALT 17 (0-31) U/L Alkaline Phosphatase 61 D (39-117) U/L Total Protein 7.6 (6.5-8.0) g/dL Albumin 4.3 (3.5-5.0) g/dL Lipase (8-78) U/L COVID-19 ([facility]) (Negative) COVID-19 Clin Com 03/22/21 03/22/21 Range/Units 12:04 12:04 WBC (4.8-10.8) X10*3/uL RBC (4.20-5.50) X10*6/uL Hgb (12.0-16.0) g/dl Hct (37-47) % MCV (80-98) fL MCH (27.0-33.0) pg MCHC (31.0-35.0) g/dl RDW (11.0-16.0) % Plt Count (160-400) X10*3/uL MPV (9.4-12.3) fL Immature Gran % (Auto) (0.0-0.4) % Neut % (Auto) (45-73) % Lymph % (Auto) (20-40) % [place] % (Auto) (2-11) % Eos % (Auto) (0-4) % Baso % (Auto) (0-2) % Lymph # (Auto) (1.2-4.9) X10*3/uL [place] # (Auto) (0.1-1.2) X10*3/uL Eos # (Auto) (0.0-0.4) X10*3/uL Baso # (Auto) (0.0-0.2) X10*3/uL Abs Immat Gran (auto) (0.00-0.03) X10*3/uL Absolute Neuts (auto) (2.0-8.3) X10*3/uL Absolute Nucleated RBC (0.0-0.012) X10*3/uL Nucleated RBC % (auto) (0.0-0.2) /100WBC PT (10.8-13.0) SEC INR (0.9-1.1) APTT (24.1-38.0) SEC Sodium (135-145) mmol/L Potassium (3.3-5.1) mmol/L Chloride (96-108) mmol/L Carbon Dioxide (22-29) mmol/L Anion Gap (12-20) BUN (9-16) mg/dL Creatinine (0.5-1.4) mg/dL Estim Creat Clear Calc Estimated GFR Random Glucose (60-115) mg/dL Calcium (8.4-10.2) mg/dL Total Bilirubin 0.2 (0.0-1.0) mg/dL Direct Bilirubin < 0.2 (0.0-0.5) mg/dL AST 22 (5-31) U/L ALT 17 (0-31) U/L Alkaline Phosphatase 61 (39-117) U/L Total Protein 7.6 (6.5-8.0) g/dL Albumin 4.3 (3.5-5.0) g/dL Lipase 49 (8-78) U/L COVID-19 ([facility]) Negative (Negative) COVID-19 Clin Com See Note ECG Data ECG #1: Interpretation: Normal sinus rhythm. Ventriticular 85. Pr interval 178. QRS 92. QTC 418. Negative STEMI Discharge Plan Discharge Clinical Impression: Chest pain Patient Disposition: Left Against Medical Advice Instructions: Chest Pain (ED) Additional Instructions: Regrese inmediatamente al servicio de urgencias si empeora el dolor en el pecho, n?useas, v?mitos, fiebre, escalofr?os, dolor en la pantorrilla, mareos, debilidad, hinchaz?n de las piernas o cualquier otro s?ntoma que le preocupe. Prescriptions: No Action escitalopram oxalate 10 mg tablet 10 mg PO DAILY Qty: 30 RF: 1 metoprolol succinate 50 mg tablet extended release 24 hr 50 mg PO DAILY Qty: 90 RF: 2 aspirin 81 mg tablet,delayed release (DR/EC) 81 mg PO BEDTIME Qty: 90 RF: 2 acetaminophen 325 mg capsule 325 mg PO QID PRN (Reason: fever or pain) Qty: 30 RF: 0 melatonin 10 mg tablet extended release 10 mg PO .nightly Qty: 5 RF: 0 alprazolam 0.5 mg Tablet 0.5 mg PO TID PRN (Reason: Anxiety) RF: 0 hydroxyzine HCl 50 mg Tablet 50 mg PO TID PRN (Reason: Anxiety) RF: 0 mirtazapine 45 mg Tablet 45 mg PO BEDTIME RF: 0 lisinopril 40 mg Tablet 40 mg PO DAILY RF: 0 multivitamin Capsule 1 cap PO DAILY RF: 0 sertraline 50 mg Tablet 50 mg PO BEDTIME RF: 0 aripiprazole 2 mg Tablet 2 mg PO BEDTIME RF: 0 cholecalciferol (vitamin D3) 25 mcg (1,000 unit) Tablet 25 mcg PO BID RF: 0 omeprazole 20 mg Tablet,Delayed Release (Dr/Ec) 20 mg PO DAILY RF: 0 linaclotide 145 mcg Capsule 145 mcg PO DAILY RF: 0 diphenhydramine HCl [Benadryl] 25 mg capsule 25 mg PO BEDTIME Qty: 7 RF: 0 Calmoseptine 0.44-20.6 % ointment 1 appl topical QID PRN (Reason: skin irritation) Qty: 113 RF: 0 magnesium citrate Solution 150 ml PO DAILY PRN (Reason: constipation) Qty: 296 RF: 0 Stand Alone Forms: Against Medical Advice Interventions: ED Discharge Assessment Last Done: 03/22/21 13:18 Discharge Date/Time: 03/22/21 13:20 Print Language: Japanese
[2021-03-22 12:17] LABS: Prothrombin Time 11.3 SEC (10.8-13.0)
[2021-03-22 12:19] LABS: Partial Thromboplastin Time 30.7 SEC (24.1-38.0)
[2021-03-22 12:36] LABS: Alanine Aminotransferase 17 U/L (0-31); Albumin Level 4.3 g/dL (3.5-5.0); Alkaline Phosphatase 61 U/L (39-117); Anion Gap 11 (12-20); Aspartate Amino Transferase 23 U/L (5-31); Bilirubin Total 0.2 mg/dL (0.0-1.0); Blood Urea Nitrogen 31 mg/dL (9-16); COVID-19 Test Negative (Negative); Calcium 9.3 mg/dL (8.4-10.2); Carbon Dioxide 29 mmol/L (22-29); Chloride 101 mmol/L (96-108); Estimated Glomerular Filt Rate 57; Glucose Random 143 mg/dL (60-115); IDNOW Serial# 9DD0AD1C; Potassium 4.3 mmol/L (3.3-5.1); Sodium 137 mmol/L (135-145); Total Protein 7.6 g/dL (6.5-8.0)
[2021-03-22 12:37] LABS: Alanine Aminotransferase 17 U/L (0-31); Albumin Level 4.3 g/dL (3.5-5.0); Alkaline Phosphatase 61 U/L (39-117); Aspartate Amino Transferase 22 U/L (5-31); Bilirubin Direct < 0.2 mg/dL (0.0-0.5); Bilirubin Total 0.2 mg/dL (0.0-1.0); Lipase 49 U/L (8-78); Total Protein 7.6 g/dL (6.5-8.0)
--- NOTE | 2021-03-22 13:16 | PC.NURSE ---
PT INSISTING ON LEAVING AMA AFTER SHE WAS EXPLAINED PLAN TO REDRAW TROPONIN. PT DID NOT WANT TO STAY, REPORTS CP RESOLVED. SPEAKING IN CLEAR FULL SENTNECES, RESP EVEN & NONLABOURED. PT SIGNED AMA PAPERWORK, PA AWARE.
== END 2021-03-22 13:20 | disposition left against medical advice (07) ==
PROVIDERS: Physician Assistant; Emergency Provider Emergency Medicine; PCP Internal Medicine Geriatric Medicine
DX: R07.9 Chest pain, unspecified (principal); Z20.822 Contact with and (suspected) exposure to COVID-19; F41.9 Anxiety disorder, unspecified; I10 Essential (primary) hypertension; I49.3 Ventricular premature depolarization; I49.1 Atrial premature depolarization
CPT/HCPCS: 36415; 71045; 80053; 80076; 82248; 83690; 85025; 85610; 85730; 87635; 93005; 99283

== ENCOUNTER 2021-03-26 05:41 | Emergency (ER) | payer MEDICARE, MEDICAID, SELFPAY ==
[2021-03-26 06:15] VITALS: BP 144/75; PULSE 84; RESP 20; TEMP 36.4; O2SAT 96; BMI 24.0
--- NOTE | 2021-03-26 06:23 | ED.ANXIETY ---
HPI - Anxiety General Chief Complaint: Anxiety Stated Complaint: foreign object in ear Time Seen by Provider: 03/26/21 06:16 Source: patient Mode of arrival: ambulatory Limitations: no limitations History of Present Illness HPI narrative: Patient comes emergency room complaining of left ear foreign body sensation and anxiety. Patient requesting medication for anxiety. Patient denies chest pain, no shortness of breath. Patient denies ear discharge, denies inserting anything in her ears. MD complaint: anxiety Related Data Home Medications Medication Instructions Recorded Confirmed alprazolam 0.5 mg PO TID PRN 08/09/20 02/05/21 aripiprazole 2 mg PO BEDTIME 08/09/20 02/05/21 cholecalciferol (vitamin D3) 25 mcg PO BID 08/09/20 02/05/21 hydroxyzine HCl 50 mg PO TID PRN 08/09/20 02/05/21 linaclotide 145 mcg PO DAILY 08/09/20 02/05/21 lisinopril 40 mg PO DAILY 08/09/20 02/05/21 mirtazapine 45 mg PO BEDTIME 08/09/20 02/05/21 multivitamin 1 cap PO DAILY 08/09/20 02/05/21 omeprazole 20 mg PO DAILY 08/09/20 02/05/21 sertraline 50 mg PO BEDTIME 08/09/20 02/05/21 Previous Rx's Medication Instructions Recorded escitalopram oxalate 10 mg tablet 10 mg PO DAILY #30 tab 09/06/20 acetaminophen 325 mg PO QID PRN #30 cap 09/16/20 aspirin 81 mg tablet,delayed 81 mg PO BEDTIME #90 tab 09/28/20 release metoprolol succinate 50 mg 50 mg PO DAILY #90 tab 09/28/20 tablet,extended release 24 hr menthol 0.44 %-zinc oxide 20.6 % 1 appl TOPICAL QID PRN #113 g 12/13/20 topical ointment magnesium citrate 150 ml PO DAILY PRN #296 ml 12/14/20 diphenhydramine HCl [Benadryl] 25 mg PO BEDTIME #7 cap 12/25/20 melatonin 10 mg PO .nightly #5 tab 01/07/21 Allergies Allergy/AdvReac Type Severity Reaction Status Date / Time penicillin G [Penicillin G] Allergy Severe ITCHY/RASH Verified 03/26/21 06:17 Sulfa (Sulfonamide Allergy Severe ITCHY,RASH, Verified 03/26/21 06:17 Antibiotics) rash [Sulfa (Sulfonamides)] trimethoprim [From Bactrim] Allergy Severe HIVES Verified 03/26/21 06:17 penicillin V Allergy Unknown rash Verified 03/26/21 06:17 sulfacetamide Allergy Unknown unknown Verified 03/26/21 06:17 [From Sulfacet-R] sulfur [From Sulfacet-R] Allergy Unknown unknown Verified 03/26/21 06:17 Review of Systems Review of Systems: Constitutional : No Weight loss, No Fever, No Chills, No Night Sweats, No Fatigue, No Malaise ENT/Mouth : No Hearing loss, No Ear Pain, No Nasal Congestion, No Sinus Pain, No Hoarseness, No sore throat, No Rhinorrhea, No Swallowing Difficulty, foreign body sensation in the left ear Eyes: No Eye Pain, No Swelling, No Redness, No Foreign Body, No Discharge, No Vision Changes Cardiovascular : No Chest Pain, No SOB, No Dyspnea on Exertion, No Orthopnea, No Edema, No Palpitations Respiratory : No Cough, No Sputum, No Wheezing, No Smoke Exposure, No Dyspnea Gastrointestinal : No Nausea, No Vomiting, No Diarrhea, No Constipation, No abdominal Pain, No Hematochezia, No Melena Genitourinary : no irregular bleeding, No Dysuria, No Urinary Frequency, No Hematuria, No Urinary Incontinence, No Urgency, No Flank Pain, No Urinary Flow Changes, No Hesitancy Musculoskeletal : No joint pain, No Myalgias, No Joint Swelling Skin : No Skin Lesions, No rash Neuro : No Weakness, No Numbness, No Paresthesias, No Loss of Consciousness, No Dizziness, No Headache Psych : Complaining of anxiety, No Depression, No SI/HI/AH/VH, No Social Issues, Heme/Lymph: No Bruising, No Bleeding,No Lymphadenopathy Endocrine : No Polyuria, No Polydipsia, No Temperature Intolerance [facility] Past Medical History Attestation statement: The following information was validated with the patient. Medical History Anxiety Arthritis Chronic constipation Dementia Essential hypertension High blood pressure PAC (premature atrial contraction) PVC (premature ventricular contraction) SVT (supraventricular tachycardia) Vertigo Surgical History No pertinent past surgical history Social History Social History Alcohol intake: unknown Smoking Status: Never smoker Advance Directives: No Advance Directives Information Provided: No Physical Exam Vital Signs: Vital Signs: Last Vital Signs Temp 97.6 F 03/26/21 06:15 Pulse 84 03/26/21 06:15 Resp 20 03/26/21 06:15 BP 144/75 H 03/26/21 06:15 Pulse Ox 96 03/26/21 06:15 Body Mass Index 24.0 Appearance: Alert. Oriented X3. No acute distress. Eyes: Pupils equal, round and reactive to light. ENT: Pharynx normal. Chronic left tympanic membrane rupture, no signs of infection, no foreign body sensation Neck: Normal inspection. Neck supple. No lymph nodes noted. No crepitus CVS: Normal heart rate and rhythm. Pulses normal. Normal S1 and S2 Respiratory: No respiratory distress. Breath sounds normal. No Wheezing. No rales Abdomen: Soft and nontender. No rigidity. No distention. good BS x4 Skin: Skin warm and dry. Normal skin color. Normal skin turgor. Extremities: No lower extremity edema. No lower extremity edema. No Lacerations. No Rash Neuro: Oriented X 3. No motor deficit. No sensory deficit. Moving all extermities. No slurred speech. Course Course Course Narrative: Patient has a very strict regimen of Ativan, at this time, I discussed with the patient that for anxiety we will give her Atarax. The pharmacy will dispense her medication tomorrow morning per patient Discharge Plan Discharge Clinical Impression: Acute anxiety Foreign body sensation in ear canal Qualifiers: Laterality: left Qualified Code(s): H61.892 - Other specified disorders of left external ear Patient Disposition: Home, Self-Care Instructions: Anxiety (ED) Additional Instructions: Please follow-up with your primary care physician tomorrow. If you have any worsening or new symptoms, please return to the emergency room or call 911 Prescriptions: No Action escitalopram oxalate 10 mg tablet 10 mg PO DAILY Qty: 30 RF: 1 metoprolol succinate 50 mg tablet extended release 24 hr 50 mg PO DAILY Qty: 90 RF: 2 aspirin 81 mg tablet,delayed release (DR/EC) 81 mg PO BEDTIME Qty: 90 RF: 2 acetaminophen 325 mg capsule 325 mg PO QID PRN (Reason: fever or pain) Qty: 30 RF: 0 melatonin 10 mg tablet extended release 10 mg PO .nightly Qty: 5 RF: 0 alprazolam 0.5 mg Tablet 0.5 mg PO TID PRN (Reason: Anxiety) RF: 0 hydroxyzine HCl 50 mg Tablet 50 mg PO TID PRN (Reason: Anxiety) RF: 0 mirtazapine 45 mg Tablet 45 mg PO BEDTIME RF: 0 lisinopril 40 mg Tablet 40 mg PO DAILY RF: 0 multivitamin Capsule 1 cap PO DAILY RF: 0 sertraline 50 mg Tablet 50 mg PO BEDTIME RF: 0 aripiprazole 2 mg Tablet 2 mg PO BEDTIME RF: 0 cholecalciferol (vitamin D3) 25 mcg (1,000 unit) Tablet 25 mcg PO BID RF: 0 omeprazole 20 mg Tablet,Delayed Release (Dr/Ec) 20 mg PO DAILY RF: 0 linaclotide 145 mcg Capsule 145 mcg PO DAILY RF: 0 diphenhydramine HCl [Benadryl] 25 mg capsule 25 mg PO BEDTIME Qty: 7 RF: 0 Calmoseptine 0.44-20.6 % ointment 1 appl topical QID PRN (Reason: skin irritation) Qty: 113 RF: 0 magnesium citrate Solution 150 ml PO DAILY PRN (Reason: constipation) Qty: 296 RF: 0
--- NOTE | 2021-03-26 06:30 | PC.NURSE ---
Pt medicated per MAR.
[2021-03-26] MEDS: hydrOXYzine HCL 50 MG TABLET PO (06:33)
== END 2021-03-26 06:38 | disposition home or self-care (01) ==
PROVIDERS: Emergency Provider Emergency Medicine; PCP Internal Medicine Geriatric Medicine
DX: F41.9 Anxiety disorder, unspecified (principal); H61.892 Other specified disorders of left external ear; I10 Essential (primary) hypertension; F03.90 Unspecified dementia, unspecified severity, without behavioral disturbance, psychotic disturbance, mood disturbance, and anxiety
CPT/HCPCS: 99283

== ENCOUNTER 2021-03-27 03:43 | Emergency (ER) | payer MEDICARE, MEDICAID, SELFPAY ==
--- NOTE | 2021-03-27 03:55 | ED.PSYCH ---
HPI - Psych General Chief Complaint: Anxiety Stated Complaint: anxiety Time Seen by Provider: 03/27/21 03:55 Source: patient, old records reviewed and japanese interpreter Mode of arrival: ambulatory Limitations: no limitations History of Present Illness HPI Narrative: does not get her xanax til 2pm today she is on a weekly script, you already know why I'm here, I need alprazolam complaint: anxiety Onset (ago): year(s) Duration: intermittent History of same: Yes Relieving factors: none Exacerbating factors: none Context: other (change in the way her xanax is dispensed) Associated psychiatric symptoms: none Associated symptoms: denies other symptoms Treatments prior to arrival: none Related Data Home Medications Medication Instructions Recorded Confirmed alprazolam 0.5 mg PO TID PRN 08/09/20 02/05/21 aripiprazole 2 mg PO BEDTIME 08/09/20 02/05/21 cholecalciferol (vitamin D3) 25 mcg PO BID 08/09/20 02/05/21 hydroxyzine HCl 50 mg PO TID PRN 08/09/20 02/05/21 linaclotide 145 mcg PO DAILY 08/09/20 02/05/21 lisinopril 40 mg PO DAILY 08/09/20 02/05/21 mirtazapine 45 mg PO BEDTIME 08/09/20 02/05/21 multivitamin 1 cap PO DAILY 08/09/20 02/05/21 omeprazole 20 mg PO DAILY 08/09/20 02/05/21 sertraline 50 mg PO BEDTIME 08/09/20 02/05/21 Previous Rx's Medication Instructions Recorded escitalopram oxalate 10 mg tablet 10 mg PO DAILY #30 tab 09/06/20 acetaminophen 325 mg PO QID PRN #30 cap 09/16/20 aspirin 81 mg tablet,delayed 81 mg PO BEDTIME #90 tab 09/28/20 release metoprolol succinate 50 mg 50 mg PO DAILY #90 tab 09/28/20 tablet,extended release 24 hr menthol 0.44 %-zinc oxide 20.6 % 1 appl TOPICAL QID PRN #113 g 12/13/20 topical ointment magnesium citrate 150 ml PO DAILY PRN #296 ml 12/14/20 diphenhydramine HCl [Benadryl] 25 mg PO BEDTIME #7 cap 12/25/20 melatonin 10 mg PO .nightly #5 tab 01/07/21 Allergies Allergy/AdvReac Type Severity Reaction Status Date / Time penicillin G [Penicillin G] Allergy Severe ITCHY/RASH Verified 03/26/21 06:17 Sulfa (Sulfonamide Allergy Severe ITCHY,RASH, Verified 03/26/21 06:17 Antibiotics) rash [Sulfa (Sulfonamides)] trimethoprim [From Bactrim] Allergy Severe HIVES Verified 03/26/21 06:17 penicillin V Allergy Unknown rash Verified 03/26/21 06:17 sulfacetamide Allergy Unknown unknown Verified 03/26/21 06:17 [From Sulfacet-R] sulfur [From Sulfacet-R] Allergy Unknown unknown Verified 03/26/21 06:17 Review of Systems Review of Systems: Constitutional : No Fever, No Chills ENT/Mouth : No Ear Pain, No Nasal Congestion, No sore throat Eyes: No Eye Pain, No Swelling, No Redness Cardiovascular : No Chest Pain, No SOB Respiratory : No Cough, No Sputum, No Dyspnea Gastrointestinal : No Nausea, No Vomiting, No Diarrhea, No Hematochezia, No Melena Genitourinary : No Dysuria, No Urinary Frequency, No Hematuria Musculoskeletal : No Myalgias Skin : No Skin Lesions, No rash Neuro : No Weakness, No Numbness, No Paresthesias, No Dizziness, No Headache Psych : positive Anxiety, positive Depression, no SI/HI PMFSH Past Medical History Attestation statement: The following information was validated with the patient. Medical History Anxiety Arthritis Chronic constipation Dementia Essential hypertension High blood pressure PAC (premature atrial contraction) PVC (premature ventricular contraction) SVT (supraventricular tachycardia) Vertigo Surgical History No pertinent past surgical history Social History Social History Alcohol intake: unknown Smoking Status: Never smoker Advance Directives: No Advance Directives Information Provided: No Physical Exam Vital Signs: Vital Signs: Last Vital Signs Temp 98.0 F 03/27/21 04:00 Pulse 87 03/27/21 04:00 Resp 18 03/27/21 04:00 BP 145/78 H 03/27/21 04:00 Pulse Ox 98 03/27/21 04:00 Body Mass Index 24.0 Appearance: Alert. Oriented X3. No acute distress. Anxious Eyes: Pupils equal, round and reactive to light. ENT: Pharynx normal. Neck: Normal inspection. Neck supple. CVS: Normal heart rate and rhythm. Pulses normal. Respiratory: No respiratory distress. Breath sounds normal. Abdomen: Soft and nontender. Skin: Skin warm and dry. Normal skin color. Normal skin turgor. Extremities: No lower extremity edema. No calf ttp Neuro: Oriented X 3. No motor deficit. No sensory deficit. Course Course Course Narrative: OF NOTE THE PATIENT TOLD US SHE HAD A RIDE, WAS WALKED OUT BY [employer] TECHNICIAN - THEN ADMITTED THAT SHE DROVE HERSELF AND PROCEEDED TO GET INTO THE CAR AND DRIVE AWAY DESPITE ASSURING US THAT SHE HAD A RIDE, THE PATIENT DOES NOT HAVE A LICENSE, WILL SEND MESSAGE TO CASE MANAGEMENT AND CARE TEAM. AT THIS TIME WILL INSTRUCT ALL ED PROVIDERS TO STOP GIVING BENZODIAZEPINES IN THE EMERGENCY DEPARTMENT IT POSES A SAFETY RISK TO HER AND OTHERS. MDM - Psych MDM Narrative Medical decision making narrative: 75 yo female with HTN, SVT, anxiety comes in with c/o feeling anxious chronic complaint for the patient no change from her baseline, stable for DC at this time after PO medications Discharge Plan Discharge Clinical Impression: Generalized anxiety disorder with panic attacks Patient Disposition: Home, Self-Care Instructions: Anxiety (ED) Additional Instructions: return to ED for any worsening symptoms or concerns Prescriptions: No Action escitalopram oxalate 10 mg tablet 10 mg PO DAILY Qty: 30 RF: 1 metoprolol succinate 50 mg tablet extended release 24 hr 50 mg PO DAILY Qty: 90 RF: 2 aspirin 81 mg tablet,delayed release (DR/EC) 81 mg PO BEDTIME Qty: 90 RF: 2 acetaminophen 325 mg capsule 325 mg PO QID PRN (Reason: fever or pain) Qty: 30 RF: 0 melatonin 10 mg tablet extended release 10 mg PO .nightly Qty: 5 RF: 0 alprazolam 0.5 mg Tablet 0.5 mg PO TID PRN (Reason: Anxiety) RF: 0 hydroxyzine HCl 50 mg Tablet 50 mg PO TID PRN (Reason: Anxiety) RF: 0 mirtazapine 45 mg Tablet 45 mg PO BEDTIME RF: 0 lisinopril 40 mg Tablet 40 mg PO DAILY RF: 0 multivitamin Capsule 1 cap PO DAILY RF: 0 sertraline 50 mg Tablet 50 mg PO BEDTIME RF: 0 aripiprazole 2 mg Tablet 2 mg PO BEDTIME RF: 0 cholecalciferol (vitamin D3) 25 mcg (1,000 unit) Tablet 25 mcg PO BID RF: 0 omeprazole 20 mg Tablet,Delayed Release (Dr/Ec) 20 mg PO DAILY RF: 0 linaclotide 145 mcg Capsule 145 mcg PO DAILY RF: 0 diphenhydramine HCl [Benadryl] 25 mg capsule 25 mg PO BEDTIME Qty: 7 RF: 0 Calmoseptine 0.44-20.6 % ointment 1 appl topical QID PRN (Reason: skin irritation) Qty: 113 RF: 0 magnesium citrate Solution 150 ml PO DAILY PRN (Reason: constipation) Qty: 296 RF: 0 Print Language: Brazilian
[2021-03-27 04:00] VITALS: BP 145/78; PULSE 87; RESP 18; TEMP 36.7; O2SAT 98; BMI 24.0
[2021-03-27] MEDS: ALPRAZolam 0.5 MG TABLET PO (04:05)
== END 2021-03-27 04:24 | disposition home or self-care (01) ==
PROVIDERS: Emergency Provider Emergency Medicine; PCP Internal Medicine Geriatric Medicine
DX: F41.1 Generalized anxiety disorder (principal); F41.0 Panic disorder [episodic paroxysmal anxiety]; I10 Essential (primary) hypertension
CPT/HCPCS: 99283

== ENCOUNTER 2021-04-14 10:01 | Emergency (ER) | payer MEDICARE, MEDICAID, SELFPAY ==
[2021-04-14 10:14] VITALS: BP 146/79; PULSE 85; RESP 12; TEMP 36.6; O2SAT 99; BMI 28.2
[2021-04-14 10:24] VITALS: BP 146/79; PULSE 85; RESP 18; TEMP 36.8; O2SAT 97
--- NOTE | 2021-04-14 10:37 | ED_ITS ---
HPI - Ear Problem General Chief complaint: Dizziness Stated complaint: dizziness Time Seen by Provider: 04/14/21 10:26 Source: patient Mode of arrival: ambulatory Limitations: language barrier (Slovak-speaking) History of Present Illness MD Complaint: ear pain Location: left ear Duration: constant Severity: moderate Relieving factors: nothing Exacerbating factors: nothing Discharge from ear: no Associated symptoms ear: other (Dizziness and ringing in the left ear) Treatment prior to arrival: other (Meclizine no symptomatic relief) Related Data Home Medications Medication Instructions Recorded Confirmed alprazolam 0.5 mg PO TID PRN 08/09/20 02/05/21 aripiprazole 2 mg PO BEDTIME 08/09/20 02/05/21 cholecalciferol (vitamin D3) 25 mcg PO BID 08/09/20 02/05/21 hydroxyzine HCl 50 mg PO TID PRN 08/09/20 02/05/21 linaclotide 145 mcg PO DAILY 08/09/20 02/05/21 lisinopril 40 mg PO DAILY 08/09/20 02/05/21 mirtazapine 45 mg PO BEDTIME 08/09/20 02/05/21 multivitamin 1 cap PO DAILY 08/09/20 02/05/21 omeprazole 20 mg PO DAILY 08/09/20 02/05/21 sertraline 50 mg PO BEDTIME 08/09/20 02/05/21 Previous Rx's Medication Instructions Recorded escitalopram oxalate 10 mg tablet 10 mg PO DAILY #30 tab 09/06/20 acetaminophen 325 mg PO QID PRN #30 cap 09/16/20 aspirin 81 mg tablet,delayed 81 mg PO BEDTIME #90 tab 09/28/20 release metoprolol succinate 50 mg 50 mg PO DAILY #90 tab 09/28/20 tablet,extended release 24 hr menthol 0.44 %-zinc oxide 20.6 % 1 appl TOPICAL QID PRN #113 g 12/13/20 topical ointment magnesium citrate 150 ml PO DAILY PRN #296 ml 12/14/20 diphenhydramine HCl [Benadryl] 25 mg PO BEDTIME #7 cap 12/25/20 melatonin 10 mg PO .nightly #5 tab 01/07/21 cefdinir 300 mg PO BID 10 Days #20 cap 04/14/21 ondansetron HCl [Zofran] 4 mg PO Q8H PRN #14 tab 04/14/21 Allergies Allergy/AdvReac Type Severity Reaction Status Date / Time penicillin G [Penicillin G] Allergy Severe ITCHY/RASH Verified 03/26/21 06:17 Sulfa (Sulfonamide Allergy Severe ITCHY,RASH, Verified 03/26/21 06:17 Antibiotics) rash [Sulfa (Sulfonamides)] trimethoprim [From Bactrim] Allergy Severe HIVES Verified 03/26/21 06:17 penicillin V Allergy Unknown rash Verified 03/26/21 06:17 sulfacetamide Allergy Unknown unknown Verified 03/26/21 06:17 [From Sulfacet-R] sulfur [From Sulfacet-R] Allergy Unknown unknown Verified 03/26/21 06:17 Review of Systems Review of Systems: Constitutional : No Weight loss, No Fever, No Chills, No Night Sweats, No Fatigue, NoMalaise ENT/Mouth: Positive ear pain/left ear ringing, No sore throat, No Difficulty swallowing Cardiovascular : No Chest Pain, No SOB, No Dyspnea on Exertion, No Orthopnea, NoEdema, No Palpitations Respiratory : No Cough, No Sputum, No Wheezing, No Dyspnea Gastrointestinal : No Nausea, No Vomiting, No abdominal pain, No Diarrhea, No blood streaked emesis, No coffee-ground emesis, No gross hematemesis, No blood streak stool, No gross hematochezia, No Melena Genitourinary : No irregular bleeding, No Dysuria, No Urinary Frequency, No Hematuria,No Urinary Incontinence, No Urgency, No Flank Pain Musculoskeletal : No joint pain, No Myalgias, No Joint Swelling Skin : No Skin Lesions, No rash Neuro : Positive dizziness, No Weakness, No Numbness, No Paresthesias, No Loss of Consciousness, No Headache Psych : No Social Issues, Heme/Lymph: No Bruising, No Bleeding,No Lymphadenopathy Endocrine : No Polyuria, No Polydipsia, No Temperature Intolerance Yes all other systems are reviewed and are negative [facility] Past Medical History Attestation statement: The following information was validated with the patient. Medical History Anxiety Arthritis Chronic constipation Dementia Essential hypertension High blood pressure PAC (premature atrial contraction) PVC (premature ventricular contraction) SVT (supraventricular tachycardia) Vertigo Surgical History No pertinent past surgical history Social History Social History Alcohol intake: unknown Advance Directives: No Advance Directives Information Provided: No Physical Exam Vital Signs: Vital Signs: Last Vital Signs Temp 98.2 F 04/14/21 10:24 Pulse 85 04/14/21 10:24 Resp 18 04/14/21 10:24 BP 146/79 H 04/14/21 10:24 Pulse Ox 97 04/14/21 10:24 Body Mass Index 28.2 vital signs have been reviewed as normal and appeared to be correct. Blood pressure normal. Heart rate normal. Respiration rate normal. Temperature normal. Oxygen saturation normal. Appearance: Alert. Oriented X3. No acute distress. Head: Normal external exam. Normocephalic. Eyes: PERRLA. EOMI. Conjunctiva and sclera normal. Eyelids normal. ENT: To left tympanic membrane erythematous with fluid behind the eardrum consistent with otitis media. External canal within normal limits no evidence of otitis externa. Pharynx normal. Uvula midline. Moist mucous membranes. Neck: Normal inspection. Neck supple. FROM. No adenopathy. No meningeal signs. CVS: Normal heart rate and rhythm. Heart sound normal. No murmurs noted. Pulses normal throughout. Respiratory: No respiratory distress. Painless inspiration. Breath sounds normal. No wheezes/rales/rhonchi noted. Chest nontender. No accessory muscle usage noted or decreased air movement noted. Back: Full range of motion noted. Skin: Skin warm and dry. Normal skin color. Normal skin turgor. No rashes/lesions/lacerations noted. Extremities: Extremities exhibit normal range of motion. Extremities nontender. Neuro: Oriented X 3. No motor deficit. No sensory deficit. Reflexes normal. Normal steady gait. Course Course Course Narrative: Patient with otitis media. Will DC home with antibiotics and symptomatic treatment along with instructions to follow-up with ear nose and throat in her PCP and to return if any new or worsening symptoms. Patient understands agrees with this plan. MDM - Ear Medical Records Attestation: I reviewed the patient's medical records. Discharge Plan Discharge Clinical Impression: Otitis media Patient Disposition: Home, Self-Care Instructions: Ear Infection (ED) Prescriptions: New cefdinir 300 mg capsule 300 mg PO BID 10 Days Qty: 20 RF: 0 ondansetron HCl [Zofran] 4 mg tablet 4 mg PO Q8H PRN (Reason: nausea and vomiting) Qty: 14 RF: 0 No Action escitalopram oxalate 10 mg tablet 10 mg PO DAILY Qty: 30 RF: 1 metoprolol succinate 50 mg tablet extended release 24 hr 50 mg PO DAILY Qty: 90 RF: 2 aspirin 81 mg tablet,delayed release (DR/EC) 81 mg PO BEDTIME Qty: 90 RF: 2 acetaminophen 325 mg capsule 325 mg PO QID PRN (Reason: fever or pain) Qty: 30 RF: 0 melatonin 10 mg tablet extended release 10 mg PO .nightly Qty: 5 RF: 0 alprazolam 0.5 mg Tablet 0.5 mg PO TID PRN (Reason: Anxiety) RF: 0 hydroxyzine HCl 50 mg Tablet 50 mg PO TID PRN (Reason: Anxiety) RF: 0 mirtazapine 45 mg Tablet 45 mg PO BEDTIME RF: 0 lisinopril 40 mg Tablet 40 mg PO DAILY RF: 0 multivitamin Capsule 1 cap PO DAILY RF: 0 sertraline 50 mg Tablet 50 mg PO BEDTIME RF: 0 aripiprazole 2 mg Tablet 2 mg PO BEDTIME RF: 0 cholecalciferol (vitamin D3) 25 mcg (1,000 unit) Tablet 25 mcg PO BID RF: 0 omeprazole 20 mg Tablet,Delayed Release (Dr/Ec) 20 mg PO DAILY RF: 0 linaclotide 145 mcg Capsule 145 mcg PO DAILY RF: 0 diphenhydramine HCl [Benadryl] 25 mg capsule 25 mg PO BEDTIME Qty: 7 RF: 0 Calmoseptine 0.44-20.6 % ointment 1 appl topical QID PRN (Reason: skin irritation) Qty: 113 RF: 0 magnesium citrate Solution 150 ml PO DAILY PRN (Reason: constipation) Qty: 296 RF: 0 Referrals: Kody Li [Physician] - 2 days Print Language: Slovak
[2021-04-14] MEDS: ALPRAZolam 0.5 MG TABLET PO (10:53)
[2021-04-14] MEDS: cephALEXin 500 MG CAPSULE PO (10:53)
== END 2021-04-14 11:24 | disposition home or self-care (01) ==
PROVIDERS: Emergency Provider Emergency Medicine Emergency Medical Services; PCP Internal Medicine Geriatric Medicine
DX: H66.92 Otitis media, unspecified, left ear (principal); R42 Dizziness and giddiness; Z79.899 Other long term (current) drug therapy
CPT/HCPCS: 99283

== ENCOUNTER 2021-04-17 02:55 | Emergency (ER) | payer MEDICARE, MEDICAID, SELFPAY ==
[2021-04-17 03:19] VITALS: BP 166/80; PULSE 86; RESP 18; TEMP 36.1; O2SAT 97; BMI 26.6
--- NOTE | 2021-04-17 04:35 | PC.NURSE ---
PT UNWILLING TO WAIT ANY LONGER TO SEE PROVIDER. EDUCATED ON IMPORTANCE OF MEDICAL EVALUATION. PT AMBULATORY, NO S/S OF DISTRESS. REFUSING TO STAY FOR MEDICAL SCREENING.
== END 2021-04-17 04:41 | disposition left against medical advice (07) ==
PROVIDERS: Emergency Provider Student in an Organized Health Care Education/Training Program; PCP Internal Medicine Geriatric Medicine
DX: G47.00 Insomnia, unspecified (principal)
CPT/HCPCS: 99281; 99282

== ENCOUNTER 2021-05-17 10:53 | Outpatient (REF) | payer MEDICARE, MEDICAID, SELFPAY | END 2021-05-17 10:54 | disposition home or self-care (01) | LOC: HO.SH 10:53 | PROVIDERS: Visit Provider Family Medicine | DX: Z13.89 Encounter for screening for other disorder (principal) ==

== ENCOUNTER 2021-05-21 23:43 | Emergency (ER) | payer MEDICARE, MEDICAID, SELFPAY ==
[2021-05-21 23:55] VITALS: BP 170/74; PULSE 68; RESP 18; TEMP 37.1; O2SAT 98; BMI 25.0
[2021-05-21 23:59] VITALS: BP 160/90; PULSE 80; O2SAT 98
--- NOTE | 2021-05-22 | ECG_ITS ---
Test Reason : C/O CP Blood Pressure : / mmHG Vent. Rate : 065 BPM Atrial Rate : 065 BPM P-R Int : 176 ms QRS Dur : 096 ms QT Int : 396 ms P-R-T Axes : 054 -19 024 degrees QTc Int : 411 ms Normal sinus rhythm Minimal voltage criteria for LVH, may be normal variant Borderline ECG When compared with ECG of 22-MAR-2021 11:53, No significant change was found Referred By: Generic ED Physician Electronically Signed By:Jesús Quintana
--- NOTE | 2021-05-22 02:05 | ED_ITS ---
HPI - Anxiety General Chief Complaint: Anxiety Stated Complaint: high blood pressure,chest pain Time Seen by Provider: 05/22/21 01:39 Source: patient Mode of arrival: ambulatory Limitations: no limitations History of Present Illness HPI narrative: Patient comes emergency room complaining of anxiety. Patient ran out of alprazolam. Patient also states that she needs a refill for metoprolol 50 mg. Patient denies chest pain, no shortness of breath, no headache no visual changes. MD complaint: anxiety Related Data Home Medications Medication Instructions Recorded Confirmed alprazolam 0.5 mg PO TID PRN 08/09/20 02/05/21 aripiprazole 2 mg PO BEDTIME 08/09/20 02/05/21 cholecalciferol (vitamin D3) 25 mcg PO BID 08/09/20 02/05/21 hydroxyzine HCl 50 mg PO TID PRN 08/09/20 02/05/21 linaclotide 145 mcg PO DAILY 08/09/20 02/05/21 lisinopril 40 mg PO DAILY 08/09/20 02/05/21 mirtazapine 45 mg PO BEDTIME 08/09/20 02/05/21 multivitamin 1 cap PO DAILY 08/09/20 02/05/21 omeprazole 20 mg PO DAILY 08/09/20 02/05/21 sertraline 50 mg PO BEDTIME 08/09/20 02/05/21 Previous Rx's Medication Instructions Recorded escitalopram oxalate 10 mg tablet 10 mg PO DAILY #30 tab 09/06/20 acetaminophen 325 mg PO QID PRN #30 cap 09/16/20 aspirin 81 mg tablet,delayed 81 mg PO BEDTIME #90 tab 09/28/20 release metoprolol succinate 50 mg 50 mg PO DAILY #90 tab 09/28/20 tablet,extended release 24 hr menthol 0.44 %-zinc oxide 20.6 % 1 appl TOPICAL QID PRN #113 g 12/13/20 topical ointment magnesium citrate 150 ml PO DAILY PRN #296 ml 12/14/20 diphenhydramine HCl [Benadryl] 25 mg PO BEDTIME #7 cap 12/25/20 melatonin 10 mg PO .nightly #5 tab 01/07/21 cefdinir 300 mg PO BID 10 Days #20 cap 04/14/21 ondansetron HCl [Zofran] 4 mg PO Q8H PRN #14 tab 04/14/21 metoprolol succinate 50 mg PO DAILY #14 tab 05/22/21 Allergies Allergy/AdvReac Type Severity Reaction Status Date / Time penicillin G [Penicillin G] Allergy Severe ITCHY/RASH Verified 05/21/21 23:55 Sulfa (Sulfonamide Allergy Severe ITCHY,RASH, Verified 05/21/21 23:55 Antibiotics) rash [Sulfa (Sulfonamides)] trimethoprim [From Bactrim] Allergy Severe HIVES Verified 05/21/21 23:55 penicillin V Allergy Unknown rash Verified 05/21/21 23:55 sulfacetamide Allergy Unknown unknown Verified 05/21/21 23:55 [From Sulfacet-R] sulfur [From Sulfacet-R] Allergy Unknown unknown Verified 05/21/21 23:55 Review of Systems Review of Systems: Constitutional : No Weight loss, No Fever, No Chills, No Night Sweats, No Fatigue, no Malaise ENT/Mouth : No Hearing loss, No Ear Pain, No Nasal Congestion, No Sinus Pain, No Hoarseness, No sore throat, No Rhinorrhea, No Swallowing Difficulty Eyes: No Eye Pain, No Swelling, No Redness, No Foreign Body, No Discharge, No Vision Changes Cardiovascular : No Chest Pain, No SOB, No Dyspnea on Exertion, No Orthopnea, No Edema, No Palpitations Respiratory : No Cough, No Sputum, No Wheezing, No Smoke Exposure, No Dyspnea Gastrointestinal : No Nausea, No Vomiting, No Diarrhea, No Constipation, No abdominal Pain, No Hematochezia, No Melena Genitourinary : no irregular bleeding, No Dysuria, No Urinary Frequency, No Hematuria, No Urinary Incontinence, No Urgency, No Flank Pain, No Urinary Flow Changes, No Hesitancy Musculoskeletal : No joint pain, No Myalgias, No Joint Swelling Skin : No Skin Lesions, No rash Neuro : No Weakness, No Numbness, No Paresthesias, No Loss of Consciousness, No Dizziness, No Headache Psych : Complaining of anxiety, No Depression, No SI/HI/AH/VH, No Social Issues, Heme/Lymph: No Bruising, No Bleeding,No Lymphadenopathy Endocrine : No Polyuria, No Polydipsia, No Temperature Intolerance PMFSH Past Medical History Medical History Anxiety Arthritis Chronic constipation Dementia Essential hypertension High blood pressure PAC (premature atrial contraction) PVC (premature ventricular contraction) SVT (supraventricular tachycardia) Vertigo Surgical History No pertinent past surgical history Social History Social History Alcohol intake: unknown Advance Directives: No Advance Directives Information Provided: No Physical Exam Vital Signs: Vital Signs: Last Vital Signs Temp 98.7 F 05/21/21 23:55 Pulse 68 05/21/21 23:55 Resp 18 05/21/21 23:55 BP 170/74 H 05/21/21 23:55 Pulse Ox 98 05/21/21 23:55 Body Mass Index 25.0 Appearance: Alert. Oriented X3. No acute distress. Eyes: Pupils equal, round and reactive to light. ENT: Pharynx normal. Neck: Normal inspection. Neck supple. No lymph nodes noted. No crepitus CVS: Normal heart rate and rhythm. Pulses normal. Normal S1 and S2 Respiratory: No respiratory distress. Breath sounds normal. No Wheezing. No ra les Abdomen: Soft and nontender. No rigidity. No distention. good BS x4 Skin: Skin warm and dry. Normal skin color. Normal skin turgor. Extremities: No lower extremity edema. no Lacerations. No Rash Neuro: Oriented X 3. No motor deficit. No sensory deficit. Moving all extermities. No slurred speech. Course Course Course Narrative: Patient states she has been out of her blood pressure medication for several days, 1 dose of metoprolol given here. Also given 1 mg of lorazepam. Patient states she has an appointment this morning with her PCP for Xanax refill. Discharge Plan Discharge Clinical Impression: Acute anxiety Patient Disposition: Home, Self-Care Instructions: Anxiety (ED) Additional Instructions: Please follow-up with your primary care physician tomorrow. If you have any worsening or new symptoms, please return to the emergency room or call 911 Prescriptions: New metoprolol succinate 50 mg tablet extended release 24 hr 50 mg PO DAILY Qty: 14 RF: 0 No Action escitalopram oxalate 10 mg tablet 10 mg PO DAILY Qty: 30 RF: 1 metoprolol succinate 50 mg tablet extended release 24 hr 50 mg PO DAILY Qty: 90 RF: 2 aspirin 81 mg tablet,delayed release (DR/EC) 81 mg PO BEDTIME Qty: 90 RF: 2 acetaminophen 325 mg capsule 325 mg PO QID PRN (Reason: fever or pain) Qty: 30 RF: 0 melatonin 10 mg tablet extended release 10 mg PO .nightly Qty: 5 RF: 0 alprazolam 0.5 mg Tablet 0.5 mg PO TID PRN (Reason: Anxiety) RF: 0 hydroxyzine HCl 50 mg Tablet 50 mg PO TID PRN (Reason: Anxiety) RF: 0 mirtazapine 45 mg Tablet 45 mg PO BEDTIME RF: 0 lisinopril 40 mg Tablet 40 mg PO DAILY RF: 0 multivitamin Capsule 1 cap PO DAILY RF: 0 sertraline 50 mg Tablet 50 mg PO BEDTIME RF: 0 aripiprazole 2 mg Tablet 2 mg PO BEDTIME RF: 0 cholecalciferol (vitamin D3) 25 mcg (1,000 unit) Tablet 25 mcg PO BID RF: 0 omeprazole 20 mg Tablet,Delayed Release (Dr/Ec) 20 mg PO DAILY RF: 0 linaclotide 145 mcg Capsule 145 mcg PO DAILY RF: 0 diphenhydramine HCl [Benadryl] 25 mg capsule 25 mg PO BEDTIME Qty: 7 RF: 0 cefdinir 300 mg capsule 300 mg PO BID 10 Days Qty: 20 RF: 0 ondansetron HCl [Zofran] 4 mg tablet 4 mg PO Q8H PRN (Reason: nausea and vomiting) Qty: 14 RF: 0 Calmoseptine 0.44-20.6 % ointment 1 appl topical QID PRN (Reason: skin irritation) Qty: 113 RF: 0 magnesium citrate Solution 150 ml PO DAILY PRN (Reason: constipation) Qty: 296 RF: 0
[2021-05-22] MEDS: LORazepam 1 MG TABLET PO (02:12)
[2021-05-22] MEDS: Metoprolol Succinate ER 50 MG TAB.ER.24H PO (02:12)
[2021-05-22 02:17] VITALS: BP 184/85; PULSE 71; RESP 16; TEMP 36.7; O2SAT 97
== END 2021-05-22 02:25 | disposition home or self-care (01) ==
PROVIDERS: Emergency Provider Emergency Medicine
DX: F41.9 Anxiety disorder, unspecified (principal); I10 Essential (primary) hypertension
CPT/HCPCS: 93005; 99283

== ENCOUNTER 2021-05-26 04:16 | Emergency (ER) | payer MEDICARE, MEDICAID, SELFPAY ==
[2021-05-26 04:57] VITALS: BP 182/80; PULSE 80; RESP 16; TEMP 36.5; O2SAT 99; BMI 28.3
== END 2021-05-26 06:04 | disposition left against medical advice (07) ==
PROVIDERS: Emergency Provider Emergency Medicine; PCP Internal Medicine Geriatric Medicine
DX: R03.0 Elevated blood-pressure reading, without diagnosis of hypertension (principal)
CPT/HCPCS: 99281; 99282; 99283; 99284

== ENCOUNTER 2021-05-26 07:09 | Emergency (ER) | payer MEDICARE, MEDICAID, SELFPAY ==
[2021-05-26 07:43] VITALS: BP 184/84; PULSE 67; O2SAT 98; BMI 37.0
[2021-05-26 08:05] VITALS: BP 172/77
--- NOTE | 2021-05-26 08:27 | ED.GENADULT ---
HPI - General Adult General Chief complaint: General Medical Stated complaint: High Blood Pressure Time Seen by Provider: 05/26/21 07:48 Source: patient Mode of arrival: ambulatory History of Present Illness HPI narrative: 75-year-old female with a past medical history of anxiety, dementia, hypertension, PAC, SVT, vertigo, recent otitis media treated with Cefdinir 1 month ago presenting to the ED complaining of continued left-sided ear pain, increased anxiety, & hypertension. Admits to taking her Metoprolol this morning. Denies hearing loss, drainage from ear, fever, chills, CP/SOB, headache, nausea/vomiting. Continuously requesting anxiolytic Onset (ago): day(s) Related Data Home Medications Medication Instructions Recorded Confirmed alprazolam 0.5 mg PO TID PRN 08/09/20 02/05/21 aripiprazole 2 mg PO BEDTIME 08/09/20 02/05/21 cholecalciferol (vitamin D3) 25 mcg PO BID 08/09/20 02/05/21 hydroxyzine HCl 50 mg PO TID PRN 08/09/20 02/05/21 linaclotide 145 mcg PO DAILY 08/09/20 02/05/21 lisinopril 40 mg PO DAILY 08/09/20 02/05/21 mirtazapine 45 mg PO BEDTIME 08/09/20 02/05/21 multivitamin 1 cap PO DAILY 08/09/20 02/05/21 omeprazole 20 mg PO DAILY 08/09/20 02/05/21 sertraline 50 mg PO BEDTIME 08/09/20 02/05/21 Previous Rx's Medication Instructions Recorded escitalopram oxalate 10 mg tablet 10 mg PO DAILY #30 tab 09/06/20 acetaminophen 325 mg PO QID PRN #30 cap 09/16/20 aspirin 81 mg tablet,delayed 81 mg PO BEDTIME #90 tab 09/28/20 release metoprolol succinate 50 mg 50 mg PO DAILY #90 tab 09/28/20 tablet,extended release 24 hr menthol 0.44 %-zinc oxide 20.6 % 1 appl TOPICAL QID PRN #113 g 12/13/20 topical ointment magnesium citrate 150 ml PO DAILY PRN #296 ml 12/14/20 diphenhydramine HCl [Benadryl] 25 mg PO BEDTIME #7 cap 12/25/20 melatonin 10 mg PO .nightly #5 tab 01/07/21 cefdinir 300 mg PO BID 10 Days #20 cap 04/14/21 ondansetron HCl [Zofran] 4 mg PO Q8H PRN #14 tab 04/14/21 metoprolol succinate 50 mg PO DAILY #14 tab 05/22/21 ciprofloxacin-dexamethasone 4 drp OTIC (EARS) BID 7 Days ml 05/26/21 [Ciprodex] Allergies Allergy/AdvReac Type Severity Reaction Status Date / Time penicillin G [Penicillin G] Allergy Severe ITCHY/RASH Verified 05/21/21 23:55 Sulfa (Sulfonamide Allergy Severe ITCHY,RASH, Verified 05/21/21 23:55 Antibiotics) rash [Sulfa (Sulfonamides)] trimethoprim [From Bactrim] Allergy Severe HIVES Verified 05/21/21 23:55 penicillin V Allergy Unknown rash Verified 05/21/21 23:55 sulfacetamide Allergy Unknown unknown Verified 05/21/21 23:55 [From Sulfacet-R] sulfur [From Sulfacet-R] Allergy Unknown unknown Verified 05/21/21 23:55 Review of Systems Review of Systems: Constitutional: No Fever, No Chills, No Fatigue, No Malaise ENT/Mouth: No Hearing loss, + Ear Pain, No Nasal Congestion, No Sinus Pain, No sore throat, Eyes: No Eye Pain, No Swelling, No Redness, No Vision Changes Cardiovascular: No Chest Pain, No SOB, No Palpitations Respiratory: No Cough, No Dyspnea Gastrointestinal: No Nausea, No Vomiting, No Abdominal pain Musculoskeletal: No joint pain, No Myalgias, No Joint Swelling Skin: No Skin Lesions, No rash Neuro: No Weakness, No Dizziness, No Headache Yes all other systems are reviewed and are negative [facility] Past Medical History Attestation statement: The following information was validated with the patient. Medical History Anxiety Arthritis Chronic constipation Dementia Essential hypertension High blood pressure PAC (premature atrial contraction) PVC (premature ventricular contraction) SVT (supraventricular tachycardia) Vertigo Surgical History No pertinent past surgical history Social History Social History Alcohol intake: never Patient Tobacco Use Status: Never used Tobacco Use of substances other than those prescribed or required for medical reasons: No Advance Directives: No Advance Directives Information Provided: No Physical Exam Vital Signs: Vital Signs: Last Vital Signs Pulse 67 05/26/21 07:43 BP 172/77 H 05/26/21 08:05 Pulse Ox 98 05/26/21 07:43 Body Mass Index 37.0 Const: General: cooperative, healthy appearing and no acute distress Orientation/consciousness: patient oriented x3 Limitations: no limitations HENMT: Other: +L externl canal swelling and erythema. No drainage Head: Yes normal to inspection Ears: hearing grossly normal bilaterally, TM normal on the right, mastoids normal, external ear abnormal pain with movement of external ear on the left and unable to visualize TM on the left General nose exam: Normal external nose present Face and sinus: Yes normal facial exam Throat: Yes posterior oropharynx normal, Yes tonsils normal, Yes uvula midline, No abnormal tonsil and No peritonsillar mass Eyes: General: appearance normal, both eyes and all related structures EOM: EOMs intact bilaterally Neck: Neck: Yes normal visual inspection, Yes no meningeal signs and Yes supple Resp: Effort & Inspection: normal respiratory effort Auscultation: clear to auscultation bilaterally, no rales, no rhonchi and no wheezes Cardio: Rate: regular rate Heart sounds: S1 normal heart sound present and S2 normal heart sound present GI: Inspection: Yes normal to inspection Skin: Rashes: no rashes Wounds: no wounds Neuro: General: patient oriented x3 and no meningeal signs Gait exam (Neuro): Normal gait present Extrem: General: Yes normal to inspection Medical Decision Making [facility] Narrative Medical decision making narrative: 75-year-old female with a past medical history of anxiety, dementia, hypertension, PAC, SVT, vertigo, recent otitis media treated with Cefdinir presenting to the ED complaining of continued left-sided ear pain x1 month, increased anxiety, & hypertension. On exam VSS, NAD, well appearing, L TM canal swollen with erythema and pain to palpation. Matoids WNL. Concern for otitis externa. Low concern for otitis media, ACS/hypertensive urgency/emergency. Patient admits she has ENT follow-up next week Patient continuously asking for angiolytic Discharge Plan Discharge Clinical Impression: Otitis externa Patient Disposition: Home, Self-Care Instructions: Otitis Externa (ED) Additional Instructions: You have an external ear infection, use Ciprodex ear drops as prescribed Please follow-up with ear nose throat specialist as discussed and scheduled for next week If her ear pain persists or worsens, becomes unbearable please return to the ED If you develop chest pain or shortness of breath please return to the ED Follow-up with her doctor Prescriptions: New ciprofloxacin-dexamethasone [Ciprodex] 0.3-0.1 % drops,suspension 4 drp otic (ears) BID 7 Days RF: 0 No Action escitalopram oxalate 10 mg tablet 10 mg PO DAILY Qty: 30 RF: 1 metoprolol succinate 50 mg tablet extended release 24 hr 50 mg PO DAILY Qty: 90 RF: 2 aspirin 81 mg tablet,delayed release (DR/EC) 81 mg PO BEDTIME Qty: 90 RF: 2 acetaminophen 325 mg capsule 325 mg PO QID PRN (Reason: fever or pain) Qty: 30 RF: 0 melatonin 10 mg tablet extended release 10 mg PO .nightly Qty: 5 RF: 0 metoprolol succinate 50 mg tablet extended release 24 hr 50 mg PO DAILY Qty: 14 RF: 0 alprazolam 0.5 mg Tablet 0.5 mg PO TID PRN (Reason: Anxiety) RF: 0 hydroxyzine HCl 50 mg Tablet 50 mg PO TID PRN (Reason: Anxiety) RF: 0 mirtazapine 45 mg Tablet 45 mg PO BEDTIME RF: 0 lisinopril 40 mg Tablet 40 mg PO DAILY RF: 0 multivitamin Capsule 1 cap PO DAILY RF: 0 sertraline 50 mg Tablet 50 mg PO BEDTIME RF: 0 aripiprazole 2 mg Tablet 2 mg PO BEDTIME RF: 0 cholecalciferol (vitamin D3) 25 mcg (1,000 unit) Tablet 25 mcg PO BID RF: 0 omeprazole 20 mg Tablet,Delayed Release (Dr/Ec) 20 mg PO DAILY RF: 0 linaclotide 145 mcg Capsule 145 mcg PO DAILY RF: 0 diphenhydramine HCl [Benadryl] 25 mg capsule 25 mg PO BEDTIME Qty: 7 RF: 0 cefdinir 300 mg capsule 300 mg PO BID 10 Days Qty: 20 RF: 0 ondansetron HCl [Zofran] 4 mg tablet 4 mg PO Q8H PRN (Reason: nausea and vomiting) Qty: 14 RF: 0 Calmoseptine 0.44-20.6 % ointment 1 appl topical QID PRN (Reason: skin irritation) Qty: 113 RF: 0 magnesium citrate Solution 150 ml PO DAILY PRN (Reason: constipation) Qty: 296 RF: 0 Referrals: Kody Li [Physician] - 2 days
== END 2021-05-26 08:45 | disposition home or self-care (01) ==
PROVIDERS: Emergency Provider Emergency Medicine; PCP Internal Medicine Geriatric Medicine
DX: H60.92 Unspecified otitis externa, left ear (principal); I10 Essential (primary) hypertension; F03.90 Unspecified dementia, unspecified severity, without behavioral disturbance, psychotic disturbance, mood disturbance, and anxiety; Z79.82 Long term (current) use of aspirin; Z79.899 Other long term (current) drug therapy
CPT/HCPCS: 99283; 99284

== ENCOUNTER 2021-05-27 05:11 | Emergency (ER) | payer MEDICARE, MEDICAID, SELFPAY ==
[2021-05-27 05:15] VITALS: BP 193/95; PULSE 99; RESP 16; TEMP 37.6; O2SAT 97; BMI 26.5
--- NOTE | 2021-05-27 05:21 | PC.NURSE ---
PT REPORTS THAT SHE FORGOT TO TAKE HER HTN MEDICATION.
== END 2021-05-27 06:22 | disposition left against medical advice (07) ==
PROVIDERS: Emergency Provider Emergency Medicine; PCP Internal Medicine Geriatric Medicine
DX: H92.02 Otalgia, left ear (principal)
CPT/HCPCS: 99283

== ENCOUNTER 2021-05-27 07:35 | Emergency (ER) | payer MEDICARE, MEDICAID, SELFPAY | END 2021-05-27 07:45 | disposition left against medical advice (07) | PROVIDERS: Emergency Provider Emergency Medicine; PCP Internal Medicine Geriatric Medicine | DX: H92.03 Otalgia, bilateral (principal) ==

== ENCOUNTER 2021-05-29 03:04 | Emergency (ER) | payer MEDICARE, MEDICAID, SELFPAY ==
[2021-05-29 03:27] VITALS: BP 186/88; BP 220/110; PULSE 70; PULSE 74; RESP 18; TEMP 37.3; O2SAT 97; O2SAT 98; BMI 26.6
[2021-05-29 04:09] VITALS: BP 160/79; PULSE 72; RESP 18; O2SAT 98
[2021-05-29 04:33] VITALS: BP 159/77
--- NOTE | 2021-05-29 04:54 | ED_ITS ---
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 Patient states that she has run out of her medica tions is requesting Tylenol as well as alprazolam. Related Data Home Medications Medication Instructions Recorded Confirmed alprazolam 0.5 mg PO TID PRN 08/09/20 02/05/21 aripiprazole 2 mg PO BEDTIME 08/09/20 02/05/21 cholecalciferol (vitamin D3) 25 mcg PO BID 08/09/20 02/05/21 hydroxyzine HCl 50 mg PO TID PRN 08/09/20 02/05/21 linaclotide 145 mcg PO DAILY 08/09/20 02/05/21 lisinopril 40 mg PO DAILY 08/09/20 02/05/21 mirtazapine 45 mg PO BEDTIME 08/09/20 02/05/21 multivitamin 1 cap PO DAILY 08/09/20 02/05/21 omeprazole 20 mg PO DAILY 08/09/20 02/05/21 sertraline 50 mg PO BEDTIME 08/09/20 02/05/21 Previous Rx's Medication Instructions Recorded escitalopram oxalate 10 mg tablet 10 mg PO DAILY #30 tab 09/06/20 acetaminophen 325 mg PO QID PRN #30 cap 09/16/20 aspirin 81 mg tablet,delayed 81 mg PO BEDTIME #90 tab 09/28/20 release metoprolol succinate 50 mg 50 mg PO DAILY #90 tab 09/28/20 tablet,extended release 24 hr menthol 0.44 %-zinc oxide 20.6 % 1 appl TOPICAL QID PRN #113 g 12/13/20 topical ointment magnesium citrate 150 ml PO DAILY PRN #296 ml 12/14/20 diphenhydramine HCl [Benadryl] 25 mg PO BEDTIME #7 cap 12/25/20 melatonin 10 mg PO .nightly #5 tab 01/07/21 cefdinir 300 mg PO BID 10 Days #20 cap 04/14/21 ondansetron HCl [Zofran] 4 mg PO Q8H PRN #14 tab 04/14/21 metoprolol succinate 50 mg PO DAILY #14 tab 05/22/21 ciprofloxacin-dexamethasone 4 drp OTIC (EARS) BID 7 Days ml 05/26/21 [Ciprodex] Allergies Allergy/AdvReac Type Severity Reaction Status Date / Time penicillin G [Penicillin G] Allergy Severe ITCHY/RASH Verified 05/29/21 03:27 Sulfa (Sulfonamide Allergy Severe ITCHY,RASH, Verified 05/29/21 03:27 Antibiotics) rash [Sulfa (Sulfonamides)] trimethoprim [From Bactrim] Allergy Severe HIVES Verified 05/29/21 03:27 penicillin V Allergy Unknown rash Verified 05/29/21 03:27 sulfacetamide Allergy Unknown unknown Verified 05/29/21 03:27 [From Sulfacet-R] sulfur [From Sulfacet-R] Allergy Unknown unknown Verified 05/29/21 03:27 Review of Systems Review of Systems: Pertinent positives and negatives as stated in HPI 10 point review of systems is otherwise negative. PMFSH Past Medical History Source: nursing notes reviewed Medical History Anxiety Arthritis Chronic constipation Dementia Essential hypertension High blood pressure PAC (premature atrial contraction) PVC (premature ventricular contraction) SVT (supraventricular tachycardia) Vertigo Surgical History No pertinent past surgical history Social History Social History Alcohol intake: never Patient Tobacco Use Status: Never used Tobacco Advance Directives: No Advance Directives Information Provided: No Physical Exam Vital Signs: Vital Signs: Last Vital Signs Temp 99.2 F 05/29/21 03:27 Pulse 72 05/29/21 04:09 Resp 18 05/29/21 04:09 BP 159/77 H 05/29/21 04:33 Pulse Ox 98 05/29/21 04:09 Body Mass Index 26.6 VITAL SIGNS: Reviewed. GENERAL: Well developed, well nourished, in no acute distress. HEAD: Normocephalic/atraumatic EYES: PERRLA, EOMI NOSE: Nares patent bilateral OROPHARYNX: no oral lesions noted, posterior pharynx clear NECK: Supple, no adenopathy LUNGS: Normal breath sounds. No adventitious sounds or accessory muscle use. SpO2<98> CARDIOVASCULAR: Regular rate and rhythm without noted murmurs, no JVD or lower extremity edema. ABDOMEN: Soft, non-tender, non-distended with bowel sounds. MUSCULOSKELETAL: No tenderness, deformities, or effusions noted on gross inspection. EXTREMITIES: No cyanosis, clubbing or edema. SKIN: Inspection of the skin reveals no rashes, ulcerations, jaundice, pallor, or petechiae. NEUROLOGIC: Alert and oriented x 4. Strength and sensation to light touch were grossly intact x 4. Course Course Course Narrative: 75-year-old female with history and clinical presentation consistent with being well known to this emergency room. Patient has no historical or clinical findings that would prompt further medical evaluation other than complaints of mild headache and requesting Tylenol. Although patient on arrival was noted to be slightly hypertensive she is otherwise asymptomatic and the blood pressure is continue to improve. Patient was informed that she would not be provided with alprazolam, but she would be able to receive a single dose of hydroxyzine if she wished. Patient agrees to the Tylenol and hydroxyzine and otherwise wishes to be discharged. Discharge Plan Discharge Clinical Impression: Anxiety, Headache Patient Disposition: Home, Self-Care Instructions: Anxiety (ED), General Headache (ED) Additional Instructions: 1. Reanude todos los medicamentos caseros seg?n lo prescrito. 2. Recomiende hacer un seguimiento con clark m?dico de atenci?n primaria raz los pr?ximos 2-3 d?as para suzy reevaluaci?n. 3. Recomiende el uso de Tylenol / ibuprofeno de venta edith seg?n sea necesario para los kathy de jaelyn. Regrese a la italo de emergencias por un empeoramiento mechelle de los s?ntomas. Prescriptions: No Action escitalopram oxalate 10 mg tablet 10 mg PO DAILY Qty: 30 RF: 1 metoprolol succinate 50 mg tablet extended release 24 hr 50 mg PO DAILY Qty: 90 RF: 2 aspirin 81 mg tablet,delayed release (DR/EC) 81 mg PO BEDTIME Qty: 90 RF: 2 acetaminophen 325 mg capsule 325 mg PO QID PRN (Reason: fever or pain) Qty: 30 RF: 0 melatonin 10 mg tablet extended release 10 mg PO .nightly Qty: 5 RF: 0 metoprolol succinate 50 mg tablet extended release 24 hr 50 mg PO DAILY Qty: 14 RF: 0 ciprofloxacin-dexamethasone [Ciprodex] 0.3-0.1 % drops,suspension 4 drp otic (ears) BID 7 Days RF: 0 alprazolam 0.5 mg Tablet 0.5 mg PO TID PRN (Reason: Anxiety) RF: 0 hydroxyzine HCl 50 mg Tablet 50 mg PO TID PRN (Reason: Anxiety) RF: 0 mirtazapine 45 mg Tablet 45 mg PO BEDTIME RF: 0 lisinopril 40 mg Tablet 40 mg PO DAILY RF: 0 multivitamin Capsule 1 cap PO DAILY RF: 0 sertraline 50 mg Tablet 50 mg PO BEDTIME RF: 0 aripiprazole 2 mg Tablet 2 mg PO BEDTIME RF: 0 cholecalciferol (vitamin D3) 25 mcg (1,000 unit) Tablet 25 mcg PO BID RF: 0 omeprazole 20 mg Tablet,Delayed Release (Dr/Ec) 20 mg PO DAILY RF: 0 linaclotide 145 mcg Capsule 145 mcg PO DAILY RF: 0 diphenhydramine HCl [Benadryl] 25 mg capsule 25 mg PO BEDTIME Qty: 7 RF: 0 cefdinir 300 mg capsule 300 mg PO BID 10 Days Qty: 20 RF: 0 ondansetron HCl [Zofran] 4 mg tablet 4 mg PO Q8H PRN (Reason: nausea and vomiting) Qty: 14 RF: 0 Calmoseptine 0.44-20.6 % ointment 1 appl topical QID PRN (Reason: skin irritation) Qty: 113 RF: 0 magnesium citrate Solution 150 ml PO DAILY PRN (Reason: constipation) Qty: 296 RF: 0 Referrals: Physician,None [Primary Care Provider] - 2 days Print Language: Kinyarwanda
[2021-05-29] MEDS: Acetaminophen 325 MG TABLET 975 MG PO (05:02)
[2021-05-29] MEDS: hydrOXYzine HCL 25 MG TABLET PO (05:02)
--- NOTE | 2021-05-29 05:26 | PC.NURSE ---
Pt ambulates with steady gait. Pt left prior to DC paperwork being posted
== END 2021-05-29 05:27 | disposition home or self-care (01) ==
PROVIDERS: Emergency Provider Student in an Organized Health Care Education/Training Program
DX: F41.9 Anxiety disorder, unspecified (principal); R51.9 Headache, unspecified; I10 Essential (primary) hypertension
CPT/HCPCS: 99283; 99284

== ENCOUNTER 2021-05-31 08:55 | Outpatient (REF) | payer MEDICARE, MEDICAID, SELFPAY ==
--- NOTE | 2021-06-04 09:46 | MHC.AU.AHA ---
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 She currently has an ear infection in the left ear and was seen at the ED a few days ago. Her last audiological evaluation that we have on file was performed at Dr. Li's office on 12/07/2015. It is uncertain if other audiological evaluations have been performed since then. Patient reported that she had a procedure on her left ear within the last few years, but could not recall the date or the type of procedure. She previously wore a left-sided hearing aid, which was recently lost. Patient presented with a high level of anxiety throughout today's visit, which may have impacted history reporting and test performance. Previous Hearing Test Results: Most recent evaluation in our file- from 12/07/[address] 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: [employer] Model: [employer] V50-P BTE (Currently Lost) Serial Number: [id number] Battery Size: 13 Warranty: 03/27/2018 Loss and Damage Warranty: 03/27/2018 Dispensed By: [facility] Date of Fittin01/15/2016 Otoscopy: Right Ear: Unremarkable Left Ear: Redness, swelling observed in canal Tympanometry: Tympanometry performed due to: To assess integrity of the middle ear system Right Ear: Reduced Middle Ear Compliance (Type As) Left Ear: Non-compliant Middle Ear System (Type B) Hearing Evaluation: Transducer(s) Used: Circumaural Headphones Method: Conventional Audiometry Stimuli Used: Pure Tones Right Ear: Description of Hearing: Mild to moderate hearing loss. Bone conduction testing attempted; however, response reliability was poor. Bone conduction responses (when oscillator was behind right ear) were averaging around 60 dBHL, which is inconsistent with air conduction levels. Left Ear: Description of Hearing: Poor response reliability in the left ear. Patient did not respond for any stimuli presented to the left ear (without masking), up to the maximum of the audiometer. Given the better hearing of the right ear and the volume levels presented to the left ear, crossover would have been expected, meaning the stimuli should have been audible in the right ear. Additionally, when the bone conduction oscillator was placed behind the left ear, the patient did not respond; given the nature of bone conduction, the stimuli should have been audible in the right ear. Placement of oscillator was checked and re-instruction provided; no change noted. Speech Recognition Threshold (SRT): Method Used: Recorded Lists Right Ear: 35 dBHL Left Ear: Could not test- no responses given Word Discrimination: Method: Recorded Lists Word Lists Used: Lista Bisil?bica (German) Right Ear: 92% at 70 dBHL Left Ear: Could not test- no responses given Interpretation of Results: Results for the left ear are overall inconclusive. It is possible that there has been a large change in hearing; however, reliability was poor and there were inconsistencies in patient's responses. Patient was also highly anxious throughout today's visit, which may have impacted her results. Patient is being treated for an ear infection of her left ear. It is recommended that she follow up with Ear, Nose, and Throat. Audiological re-evaluation is recommended after medical management and resolution of the infection in the left ear. Recommendations: Follow-up with Ear, Nose, and Throat regarding ear infection in the left ear. Audiological re-evaluation is recommended after medical management and resolution of the ear infection. After audiological re-evaluation, hearing instrument options can be discussed. Diagnosis: Primary Diagnosis: H90.3 Bilateral Sensorineural Hearing Loss Signature: Provider: Lisa Jean, STEVEN-A
== END 2021-05-31 08:56 | disposition home or self-care (01) ==
LOC: HO.SH 08:55
PROVIDERS: Visit Provider Family Medicine
DX: H90.3 Sensorineural hearing loss, bilateral (principal)
CPT/HCPCS: 92557; 92567

== ENCOUNTER 2021-06-04 07:35 | Emergency (ER) | payer MEDICARE, MEDICAID, SELFPAY | END 2021-06-04 07:54 | disposition left against medical advice (07) | PROVIDERS: Emergency Provider Emergency Medicine; PCP Internal Medicine Geriatric Medicine | DX: H92.09 Otalgia, unspecified ear (principal) ==

== ENCOUNTER 2021-06-11 06:32 | Emergency (ER) | payer MEDICARE, MEDICAID, SELFPAY ==
[2021-06-11 07:19] VITALS: BP 178/89; PULSE 87; RESP 18; TEMP 36.6; O2SAT 96; BMI 28.3
--- NOTE | 2021-06-11 08:58 | ED_ITS ---
HPI - General Adult General Chief complaint: Ear Problems Stated complaint: multiple complaints, tremors Time Seen by Provider: 06/11/21 08:07 Source: patient Mode of arrival: ambulatory History of Present Illness HPI narrative: 75-year-old female with a past medical history of anxiety, arthritis, constipation, dementia, HTN, PAC, SVT, vertigo, presenting to the ED complaining of increased anxiety requesting anxioulytic & acute on chronic left ear pain requesting antibiotic. Patient reports her anxiety medications will be refilled tomorrow started denies CP/SOB, abdominal pain, nausea/vomiting, drainage from ear, hearing loss Related Data Home Medications Medication Instructions Recorded Confirmed alprazolam 0.5 mg tablet 0.5 mg PO TID PRN 08/09/20 02/05/21 aripiprazole 2 mg tablet 2 mg PO BEDTIME 08/09/20 02/05/21 cholecalciferol (vitamin D3) 25 25 mcg PO BID 08/09/20 02/05/21 mcg (1,000 unit) tablet hydroxyzine HCl 50 mg tablet 50 mg PO TID PRN 08/09/20 02/05/21 linaclotide 145 mcg capsule 145 mcg PO DAILY 08/09/20 02/05/21 mirtazapine 45 mg tablet 45 mg PO BEDTIME 08/09/20 02/05/21 multivitamin 1 cap PO DAILY 08/09/20 02/05/21 omeprazole 20 mg tablet,delayed 20 mg PO DAILY 08/09/20 02/05/21 release sertraline 50 mg tablet 50 mg PO BEDTIME 08/09/20 02/05/21 Previous Rx's Medication Instructions Recorded escitalopram oxalate 10 mg tablet 10 mg PO DAILY #30 tab 09/06/20 acetaminophen 325 mg capsule 325 mg PO QID PRN #30 cap 09/16/20 aspirin 81 mg tablet,delayed 81 mg PO BEDTIME #90 tab 09/28/20 release metoprolol succinate 50 mg 50 mg PO DAILY #90 tab 09/28/20 tablet,extended release 24 hr menthol 0.44 %-zinc oxide 20.6 % 1 appl TOPICAL QID PRN #113 g 12/13/20 topical ointment (Calmoseptine) magnesium citrate 150 ml PO DAILY PRN #296 ml 12/14/20 diphenhydramine HCl 25 mg capsule 25 mg PO BEDTIME #7 cap 12/25/20 (Benadryl) melatonin 10 mg tablet,extended 10 mg PO .nightly #5 tab 01/07/21 release cefdinir 300 mg capsule 300 mg PO BID 10 Days #20 cap 04/14/21 ondansetron HCl 4 mg tablet 4 mg PO Q8H PRN #14 tab 04/14/21 (Zofran) metoprolol succinate 50 mg 50 mg PO DAILY #14 tab 05/22/21 tablet,extended release 24 hr ciprofloxacin 0.3 %-dexamethasone 4 drp OTIC (EARS) BID 7 Days ml 05/26/21 0.1 % ear drops,suspension (Ciprodex) lisinopril 40 mg tablet 40 mg PO QPM #90 tab 05/31/21 Allergies Allergy/AdvReac Type Severity Reaction Status Date / Time penicillin G [Penicillin G] Allergy Severe ITCHY/RASH Verified 05/29/21 03:27 Sulfa (Sulfonamide Allergy Severe ITCHY,RASH, Verified 05/29/21 03:27 Antibiotics) rash [Sulfa (Sulfonamides)] trimethoprim [From Bactrim] Allergy Severe HIVES Verified 05/29/21 03:27 penicillin V Allergy Unknown rash Verified 05/29/21 03:27 sulfacetamide Allergy Unknown unknown Verified 05/29/21 03:27 [From Sulfacet-R] sulfur [From Sulfacet-R] Allergy Unknown unknown Verified 05/29/21 03:27 Review of Systems Review of Systems: Constitutional: No Fever, No Chills, No Fatigue, No Malaise ENT/Mouth: No Hearing loss, + Ear Pain, No Nasal Congestion, No Sinus Pain, No Hoarseness, No sore throat Eyes: No Eye Pain, No Swelling, No Redness Cardiovascular: No Chest Pain, No SOB, No Palpitations Respiratory: No Cough, No Dyspnea Gastrointestinal: No Nausea, No Vomiting, No Abdominal pain Musculoskeletal: No joint pain, No Myalgias, No Joint Swelling Skin: No Skin Lesions, No rash Psych: + Anxiety/Panic Yes all other systems are reviewed and are negative [facility] Past Medical History Attestation statement: The following information was validated with the patient. Medical History Anxiety Arthritis Chronic constipation Dementia Essential hypertension High blood pressure PAC (premature atrial contraction) PVC (premature ventricular contraction) SVT (supraventricular tachycardia) Vertigo Surgical History No pertinent past surgical history Social History Social History Alcohol intake: never Patient Tobacco Use Status: Never used Tobacco Advance Directives: No Physical Exam Vital Signs: Vital Signs: Last Vital Signs Temp 97.8 F 06/11/21 07:19 Pulse 87 06/11/21 07:19 Resp 18 06/11/21 07:19 BP 178/89 H 06/11/21 07:19 Pulse Ox 96 06/11/21 07:19 Body Mass Index 28.3 Const: General: cooperative, healthy appearing, no acute distress, well developed, alert and awake Orientation/consciousness: patient oriented x3 Limitations: no limitations HENMT: Head: Yes normal to inspection Ears: hearing grossly normal bi laterally, external ears normal, TM's normal bilaterally and mastoids normal General nose exam: Normal external nose present Face and sinus: Yes normal facial exam Mouth: Normal oral and palatal mucosa present Throat: Yes posterior oropharynx normal Eyes: General: appearance normal, both eyes and all related structures EOM: EOMs intact bilaterally Neck: Neck: Yes normal visual inspection Resp: Effort & Inspection: normal respiratory effort and no respiratory distress Cardio: Rate: regular rate GI: Inspection: Yes normal to inspection Palpation (GI): Soft to palpation and nontender Skin: Rashes: no rashes Wounds: no wounds Neuro: General: patient oriented x3 Gait exam (Neuro): Normal gait present Extrem: General: Yes normal to inspection Medical Decision Making [facility] Narrative Medical decision making narrative: 75-year-old female with a past medical his tory of anxiety, arthritis, constipation, dementia, HTN, PAC, SVT, vertigo, presenting to the ED complaining of increased anxiety requesting anxioulytic & acute on chronic left ear pain requesting antibiotic. On exam vital signs stable, NAD/nontoxic. No evidence of acute infection to ears, discussed with patient she needs to follow-up with ENT as has been previously discussed. Discussed with patient she would not be receiving dose of a benzodiazepine in the ED, she got very upset and walked out Discussed with patient that she needs to follow up with her PCP Discharge Plan Discharge Clinical Impression: Anxiety Patient Disposition: Home, Self-Care Prescriptions: No Action escitalopram oxalate 10 mg tablet 10 mg PO DAILY Qty: 30 RF: 1 metoprolol succinate 50 mg tablet extended release 24 hr 50 mg PO DAILY Qty: 90 RF: 2 aspirin 81 mg tablet,delayed release (DR/EC) 81 mg PO BEDTIME Qty: 90 RF: 2 lisinopril 40 mg tablet 40 mg PO QPM Qty: 90 RF: 4 acetaminophen 325 mg capsule 325 mg PO QID PRN (Reason: fever or pain) Qty: 30 RF: 0 melatonin 10 mg tablet extended release 10 mg PO .nightly Qty: 5 RF: 0 metoprolol succinate 50 mg tablet extended release 24 hr 50 mg PO DAILY Qty: 14 RF: 0 ciprofloxacin-dexamethasone [Ciprodex] 0.3-0.1 % drops,suspension 4 drp otic (ears) BID 7 Days RF: 0 alprazolam 0.5 mg Tablet 0.5 mg PO TID PRN (Reason: Anxiety) RF: 0 hydroxyzine HCl 50 mg Tablet 50 mg PO TID PRN (Reason: Anxiety) RF: 0 mirtazapine 45 mg Tablet 45 mg PO BEDTIME RF: 0 multivitamin Capsule 1 cap PO DAILY RF: 0 sertraline 50 mg Tablet 50 mg PO BEDTIME RF: 0 aripiprazole 2 mg Tablet 2 mg PO BEDTIME RF: 0 cholecalciferol (vitamin D3) 25 mcg (1,000 unit) Tablet 25 mcg PO BID RF: 0 omeprazole 20 mg Tablet,Delayed Release (Dr/Ec) 20 mg PO DAILY RF: 0 linaclotide 145 mcg Capsule 145 mcg PO DAILY RF: 0 diphenhydramine HCl [Benadryl] 25 mg capsule 25 mg PO BEDTIME Qty: 7 RF: 0 cefdinir 300 mg capsule 300 mg PO BID 10 Days Qty: 20 RF: 0 ondansetron HCl [Zofran] 4 mg tablet 4 mg PO Q8H PRN (Reason: nausea and vomiting) Qty: 14 RF: 0 Calmoseptine 0.44-20.6 % ointment 1 appl topical QID PRN (Reason: skin irritation) Qty: 113 RF: 0 magnesium citrate Solution 150 ml PO DAILY PRN (Reason: constipation) Qty: 296 RF: 0 Interventions: ED Discharge Assessment Last Done: 06/11/21 08:27 Discharge Date/Time: 06/11/21 09:02
== END 2021-06-11 09:02 | disposition home or self-care (01) ==
PROVIDERS: Emergency Provider Emergency Medicine
DX: F41.9 Anxiety disorder, unspecified (principal); H92.02 Otalgia, left ear; I10 Essential (primary) hypertension
CPT/HCPCS: 99282; 99283

== ENCOUNTER 2021-06-11 22:07 | Emergency (ER) | payer MEDICARE, MEDICAID, SELFPAY ==
[2021-06-11 22:08] VITALS: BP 158/83; BP 170/80; PULSE 80; PULSE 84; RESP 18; TEMP 37.4; O2SAT 100; O2SAT 99; BMI 23.6
[2021-06-11 22:26] VITALS: BP 170/77; PULSE 80; RESP 18; TEMP 37.2; O2SAT 98
[2021-06-11] MEDS: hydrOXYzine HCL 25 MG TABLET PO (22:42)
--- NOTE | 2021-06-11 22:46 | ED_ITS ---
HPI - Anxiety General Chief Complaint: Anxiety Stated Complaint: anxiety Time Seen by Provider: 06/11/21 22:46 Source: patient and victim witness administrator Mode of arrival: ambulatory History of Present Illness HPI narrative: 75-year-old female who presents with complaints that she ran out of her blood pressure medication but denies any dizziness, headache, chest pain/palpitations, shortness of breath, nausea/vomiting, or diarrhea. 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 Related Data Home Medications Medication Instructions Recorded Confirmed alprazolam 0.5 mg tablet 0.5 mg PO TID PRN 08/09/20 02/05/21 aripiprazole 2 mg tablet 2 mg PO BEDTIME 08/09/20 02/05/21 cholecalciferol (vitamin D3) 25 25 mcg PO BID 08/09/20 02/05/21 mcg (1,000 unit) tablet hydroxyzine HCl 50 mg tablet 50 mg PO TID PRN 08/09/20 02/05/21 linaclotide 145 mcg capsule 145 mcg PO DAILY 08/09/20 02/05/21 mirtazapine 45 mg tablet 45 mg PO BEDTIME 08/09/20 02/05/21 multivitamin 1 cap PO DAILY 08/09/20 02/05/21 omeprazole 20 mg tablet,delayed 20 mg PO DAILY 08/09/20 02/05/21 release sertraline 50 mg tablet 50 mg PO BEDTIME 08/09/20 02/05/21 Previous Rx's Medication Instructions Recorded escitalopram oxalate 10 mg tablet 10 mg PO DAILY #30 tab 09/06/20 acetaminophen 325 mg capsule 325 mg PO QID PRN #30 cap 09/16/20 aspirin 81 mg tablet,delayed 81 mg PO BEDTIME #90 tab 09/28/20 release metoprolol succinate 50 mg 50 mg PO DAILY #90 tab 09/28/20 tablet,extended release 24 hr menthol 0.44 %-zinc oxide 20.6 % 1 appl TOPICAL QID PRN #113 g 12/13/20 topical ointment (Calmoseptine) magnesium citrate 150 ml PO DAILY PRN #296 ml 12/14/20 diphenhydramine HCl 25 mg capsule 25 mg PO BEDTIME #7 cap 12/25/20 (Benadryl) melatonin 10 mg tablet,extended 10 mg PO .nightly #5 tab 01/07/21 release cefdinir 300 mg capsule 300 mg PO BID 10 Days #20 cap 04/14/21 ondansetron HCl 4 mg tablet 4 mg PO Q8H PRN #14 tab 04/14/21 (Zofran) metoprolol succinate 50 mg 50 mg PO DAILY #14 tab 05/22/21 tablet,extended release 24 hr ciprofloxacin 0.3 %-dexamethasone 4 drp OTIC (EARS) BID 7 Days ml 05/26/21 0.1 % ear drops,suspension (Ciprodex) lisinopril 40 mg tablet 40 mg PO QPM #90 tab 05/31/21 Allergies Allergy/AdvReac Type Severity Reaction Status Date / Time penicillin G [Penicillin G] Allergy Severe ITCHY/RASH Verified 05/29/21 03:27 Sulfa (Sulfonamide Allergy Severe ITCHY,RASH, Verified 05/29/21 03:27 Antibiotics) rash [Sulfa (Sulfonamides)] trimethoprim [From Bactrim] Allergy Severe HIVES Verified 05/29/21 03:27 penicillin V Allergy Unknown rash Verified 05/29/21 03:27 sulfacetamide Allergy Unknown unknown Verified 05/29/21 03:27 [From Sulfacet-R] sulfur [From Sulfacet-R] Allergy Unknown unknown Verified 05/29/21 03:27 Review of Systems Review of Systems: Pertinent positives and negatives as stated in HPI 10 point review of systems is otherwise negative. [facility] Past Medical History Source: nursing notes reviewed Medical History Anxiety Arthritis Chronic constipation Dementia Essential hypertension High blood pressure PAC (premature atrial contraction) PVC (premature ventricular contraction) SVT (supraventricular tachycardia) Vertigo Surgical History No pertinent past surgical history Social History Social History Alcohol intake: never Patient Tobacco Use Status: Never used Tobacco Advance Directives: No Advance Directives Information Provided: Yes Physical Exam Vital Signs: Vital Signs: Last Vital Signs Temp 99.0 F 06/11/21 22:26 Pulse 80 06/11/21 22:26 Resp 18 06/11/21 22:26 BP 152/78 H 06/11/21 23:19 Pulse Ox 98 06/11/21 22:26 Body Mass Index 23.6 VITAL SIGNS: Reviewed. GENERAL: Well developed, well nourished, in no acute distress. HEAD: Normocephalic/atraumatic EYES: PERRLA, EOMI EARS: Ext canals without abnormality OROPHARYNX: no oral lesions noted, posterior pharynx clear NECK: Supple, no adenopathy LUNGS: Normal breath sounds. No adventitious sounds or accessory muscle use. SpO2<98> CARDIOVASCULAR: Regular rate and rhythm without noted murmurs, no JVD or lower extremity edema. ABDOMEN: Soft, non-tender, non-distended with bowel sounds. MUSCULOSKELETAL: No tenderness, deformities, or effusions noted on gross inspection. EXTREMITIES: No cyanosis, clubbing or edema. SKIN: Inspection of the skin reveals no rashes NEUROLOGIC: Alert and oriented x 4. Strength and sensation to light touch were grossly intact x 4. Course Course Course Narrative: 75-year-old female with history and clinical presentation consistent with elevated blood pressure but otherwise asymptomatic and on review of her pharmacy records she is noted to take 50 mg of Lopressor daily. Suspect that the noted blood pressure is contributed by her anxiety. Will re-evaluate and if blood pressure within normal limits patient will be reassured and discharged home to picking crew supervisor her medications in the morning. On re-evaluation blood pressure is much improved and patient remains asymptomatic and will be discharged home with instructions to picking crew supervisor her prescriptions in the morning. Discharge Plan Discharge Clinical Impression: Anxiety Patient Disposition: Home, Self-Care Instructions: Anxiety (ED) Additional Instructions: Return to the ER for acute worsening of symptoms. Prescriptions: No Action escitalopram oxalate 10 mg tablet 10 mg PO DAILY Qty: 30 RF: 1 metoprolol succinate 50 mg tablet extended release 24 hr 50 mg PO DAILY Qty: 90 RF: 2 aspirin 81 mg tablet,delayed release (DR/EC) 81 mg PO BEDTIME Qty: 90 RF: 2 lisinopril 40 mg tablet 40 mg PO QPM Qty: 90 RF: 4 acetaminophen 325 mg capsule 325 mg PO QID PRN (Reason: fever or pain) Qty: 30 RF: 0 melatonin 10 mg tablet extended release 10 mg PO .nightly Qty: 5 RF: 0 metoprolol succinate 50 mg tablet extended release 24 hr 50 mg PO DAILY Qty: 14 RF: 0 ciprofloxacin-dexamethasone [Ciprodex] 0.3-0.1 % drops,suspension 4 drp otic (ears) BID 7 Days RF: 0 alprazolam 0.5 mg Tablet 0.5 mg PO TID PRN (Reason: Anxiety) RF: 0 hydroxyzine HCl 50 mg Tablet 50 mg PO TID PRN (Reason: Anxiety) RF: 0 mirtazapine 45 mg Tablet 45 mg PO BEDTIME RF: 0 multivitamin Capsule 1 cap PO DAILY RF: 0 sertraline 50 mg Tablet 50 mg PO BEDTIME RF: 0 aripiprazole 2 mg Tablet 2 mg PO BEDTIME RF: 0 cholecalciferol (vitamin D3) 25 mcg (1,000 unit) Tablet 25 mcg PO BID RF: 0 omeprazole 20 mg Tablet,Delayed Release (Dr/Ec) 20 mg PO DAILY RF: 0 linaclotide 145 mcg Capsule 145 mcg PO DAILY RF: 0 diphenhydramine HCl [Benadryl] 25 mg capsule 25 mg PO BEDTIME Qty: 7 RF: 0 cefdinir 300 mg capsule 300 mg PO BID 10 Days Qty: 20 RF: 0 ondansetron HCl [Zofran] 4 mg tablet 4 mg PO Q8H PRN (Reason: nausea and vomiting) Qty: 14 RF: 0 Calmoseptine 0.44-20.6 % ointment 1 appl topical QID PRN (Reason: skin irritation) Qty: 113 RF: 0 magnesium citrate Solution 150 ml PO DAILY PRN (Reason: constipation) Qty: 296 RF: 0 Referrals: Name,MD Nitin [Primary Care Provider] - 2 days Print Language: Swedish
[2021-06-11 23:19] VITALS: BP 152/78
== END 2021-06-11 23:50 | disposition home or self-care (01) ==
PROVIDERS: Emergency Provider Student in an Organized Health Care Education/Training Program; PCP Internal Medicine Geriatric Medicine
DX: F41.9 Anxiety disorder, unspecified (principal); I10 Essential (primary) hypertension
CPT/HCPCS: 99283

== ENCOUNTER 2021-06-12 03:37 | Emergency (ER) | payer MEDICARE, MEDICAID, SELFPAY ==
[2021-06-12] VITALS (7 sets, daily range): BP systolic 166–193; BP diastolic 81–100; PULSE 75–84; RESP 15–18; TEMP 37; O2SAT 97–100; BMI 25.5
[2021-06-12] MEDS: amLODIPine Besylate 5 MG TABLET PO ×2 (04:09→05:43)
[2021-06-12] MEDS: diphenhydrAMINE HCL 25 MG TABLET PO (05:07)
--- NOTE | 2021-06-12 05:09 | ED_ITS ---
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 Otherwise, she has no acute complaints. Related Data Home Medications Medication Instructions Recorded Confirmed alprazolam 0.5 mg tablet 0.5 mg PO TID PRN 08/09/20 02/05/21 aripiprazole 2 mg tablet 2 mg PO BEDTIME 08/09/20 02/05/21 cholecalciferol (vitamin D3) 25 25 mcg PO BID 08/09/20 02/05/21 mcg (1,000 unit) tablet hydroxyzine HCl 50 mg tablet 50 mg PO TID PRN 08/09/20 02/05/21 linaclotide 145 mcg capsule 145 mcg PO DAILY 08/09/20 02/05/21 mirtazapine 45 mg tablet 45 mg PO BEDTIME 08/09/20 02/05/21 multivitamin 1 cap PO DAILY 08/09/20 02/05/21 omeprazole 20 mg tablet,delayed 20 mg PO DAILY 08/09/20 02/05/21 release sertraline 50 mg tablet 50 mg PO BEDTIME 08/09/20 02/05/21 Previous Rx's Medication Instructions Recorded escitalopram oxalate 10 mg tablet 10 mg PO DAILY #30 tab 09/06/20 acetaminophen 325 mg capsule 325 mg PO QID PRN #30 cap 09/16/20 aspirin 81 mg tablet,delayed 81 mg PO BEDTIME #90 tab 09/28/20 release metoprolol succinate 50 mg 50 mg PO DAILY #90 tab 09/28/20 tablet,extended release 24 hr menthol 0.44 %-zinc oxide 20.6 % 1 appl TOPICAL QID PRN #113 g 12/13/20 topical ointment (Calmoseptine) magnesium citrate 150 ml PO DAILY PRN #296 ml 12/14/20 diphenhydramine HCl 25 mg capsule 25 mg PO BEDTIME #7 cap 12/25/20 (Benadryl) melatonin 10 mg tablet,extended 10 mg PO .nightly #5 tab 01/07/21 release cefdinir 300 mg capsule 300 mg PO BID 10 Days #20 cap 04/14/21 ondansetron HCl 4 mg tablet 4 mg PO Q8H PRN #14 tab 04/14/21 (Zofran) metoprolol succinate 50 mg 50 mg PO DAILY #14 tab 05/22/21 tablet,extended release 24 hr ciprofloxacin 0.3 %-dexamethasone 4 drp OTIC (EARS) BID 7 Days ml 05/26/21 0.1 % ear drops,suspension (Ciprodex) lisinopril 40 mg tablet 40 mg PO QPM #90 tab 05/31/21 Allergies Allergy/AdvReac Type Severity Reaction Status Date / Time penicillin G [Penicillin G] Allergy Severe ITCHY/RASH Verified 05/29/21 03:27 Sulfa (Sulfonamide Allergy Severe ITCHY,RASH, Verified 05/29/21 03:27 Antibiotics) rash [Sulfa (Sulfonamides)] trimethoprim [From Bactrim] Allergy Severe HIVES Verified 05/29/21 03:27 penicillin V Allergy Unknown rash Verified 05/29/21 03:27 sulfacetamide Allergy Unknown unknown Verified 05/29/21 03:27 [From Sulfacet-R] sulfur [From Sulfacet-R] Allergy Unknown unknown Verified 05/29/21 03:27 Review of Systems Review of Systems: Pertinent positives and negatives as stated in HPI 10 point review of systems is otherwise negative. [facility] Past Medical History Source: nursing notes reviewed Medical History Anxiety Arthritis Chronic constipation Dementia Essential hypertension High blood pressure PAC (premature atrial contraction) PVC (premature ventricular contraction) SVT (supraventricular tachycardia) Vertigo Surgical History No pertinent past surgical history Social History Social History Alcohol intake: never Patient Tobacco Use Status: Never used Tobacco Advance Directives: No Physical Exam Vital Signs: Vital Signs: Last Vital Signs Temp 98.6 F 06/12/21 03:44 Pulse 80 06/12/21 05:06 Resp 18 06/12/21 05:06 BP 181/83 H 06/12/21 05:06 Pulse Ox 97 06/12/21 05:06 Body Mass Index 25.5 VITAL SIGNS: Reviewed. GENERAL: Well developed, well nourished, in no acute distress. HEAD: Normocephalic/atraumatic EYES: PERRLA, EOMI OROPHARYNX: no oral lesions noted, posterior pharynx clear LUNGS: Normal breath sounds. SpO2<97> CARDIOVASCULAR: Regular rate and rhythm without noted murmurs, no JVD or lower extremity edema. ABDOMEN: Soft, non-tender, non-distended with bowel sounds. SKIN: Inspection of the skin reveals no rashes NEUROLOGIC: Alert and oriented x 4. Course Course Course Narrative: 75-year-old female with history and clinical presentation co nsistent with high blood pressure that is likely secondary to patient's anxiety symptoms as well as very mild anxiety. Patient received medication for both her blood pressure as well as 25 mg of Benadryl. On re-evaluation she states feeling better and her blood pressure has shown mild improvement. She was otherwise discharged home in stable condition. Discharge Plan Discharge Clinical Impression: Anxiety, Hypertension Patient Disposition: Home, Self-Care Instructions: Hypertension (ED), Anxiety (ED) Additional Instructions: Return for worsening symptoms. Prescriptions: No Action escitalopram oxalate 10 mg tablet 10 mg PO DAILY Qty: 30 RF: 1 metoprolol succinate 50 mg tablet extended release 24 hr 50 mg PO DAILY Qty: 90 RF: 2 aspirin 81 mg tablet,delayed release (DR/EC) 81 mg PO BEDTIME Qty: 90 RF: 2 lisinopril 40 mg tablet 40 mg PO QPM Qty: 90 RF: 4 acetaminophen 325 mg capsule 325 mg PO QID PRN (Reason: fever or pain) Qty: 30 RF: 0 melatonin 10 mg tablet extended release 10 mg PO .nightly Qty: 5 RF: 0 metoprolol succinate 50 mg tablet extended release 24 hr 50 mg PO DAILY Qty: 14 RF: 0 ciprofloxacin-dexamethasone [Ciprodex] 0.3-0.1 % drops,suspension 4 drp otic (ears) BID 7 Days RF: 0 alprazolam 0.5 mg Tablet 0.5 mg PO TID PRN (Reason: Anxiety) RF: 0 hydroxyzine HCl 50 mg Tablet 50 mg PO TID PRN (Reason: Anxiety) RF: 0 mirtazapine 45 mg Tablet 45 mg PO BEDTIME RF: 0 multivitamin Capsule 1 cap PO DAILY RF: 0 sertraline 50 mg Tablet 50 mg PO BEDTIME RF: 0 aripiprazole 2 mg Tablet 2 mg PO BEDTIME RF: 0 cholecalciferol (vitamin D3) 25 mcg (1,000 unit) Tablet 25 mcg PO BID RF: 0 omeprazole 20 mg Tablet,Delayed Release (Dr/Ec) 20 mg PO DAILY RF: 0 linaclotide 145 mcg Capsule 145 mcg PO DAILY RF: 0 diphenhydramine HCl [Benadryl] 25 mg capsule 25 mg PO BEDTIME Qty: 7 RF: 0 cefdinir 300 mg capsule 300 mg PO BID 10 Days Qty: 20 RF: 0 ondansetron HCl [Zofran] 4 mg tablet 4 mg PO Q8H PRN (Reason: nausea and vomiting) Qty: 14 RF: 0 Calmoseptine 0.44-20.6 % ointment 1 appl topical QID PRN (Reason: skin irritation) Qty: 113 RF: 0 magnesium citrate Solution 150 ml PO DAILY PRN (Reason: constipation) Qty: 296 RF: 0 Referrals: Name,MD Nitin [Primary Care Provider] - 2 days Print Language: Cook Islander
--- NOTE | 2021-06-12 05:43 | PC.NURSE ---
dr snider made aware of pt's sustained HTN, ordered amlodipine
== END 2021-06-12 06:35 | disposition home or self-care (01) ==
PROVIDERS: Emergency Provider Student in an Organized Health Care Education/Training Program; PCP Internal Medicine Geriatric Medicine
DX: F41.1 Generalized anxiety disorder (principal); F43.0 Acute stress reaction; I10 Essential (primary) hypertension; Z79.899 Other long term (current) drug therapy
CPT/HCPCS: 99284; Q0163

== ENCOUNTER 2021-06-17 05:21 | Emergency (ER) | payer MEDICARE, MEDICAID, SELFPAY ==
[2021-06-17 05:44] VITALS: BP 181/84; PULSE 77; RESP 18; TEMP 37.6; O2SAT 94; BMI 24.3
--- NOTE | 2021-06-17 06:52 | ED.ANXIETY ---
HPI - Anxiety General Chief Complaint: Anxiety Stated Complaint: High Blood Pressure Time Seen by Provider: 06/17/21 06:44 Source: patient Mode of arrival: ambulatory Limitations: no limitations History of Present Illness HPI narrative: 75-year-old female who presents emergency department complaining of an anxiety attack. Patient states that she takes alprazolam but has run out of this medication. She states that her doctor has prescribed and she has to pick it up at the pharmacy. The patient states that she is feeling extremely anxious today and believes she is having a panic attack. She checked her blood pressure and it was elevated and believes this made her more anxious. The patient denied headache, nausea, vomiting, chest pain, shortness of breath, dyspnea on exertion, abdominal pain. She initially complained of urinary frequency but when I asked she denied this. She denied dysuria as well. Related Data Home Medications Medication Instructions Recorded Confirmed alprazolam 0.5 mg tablet 0.5 mg PO TID PRN 08/09/20 02/05/21 aripiprazole 2 mg tablet 2 mg PO BEDTIME 08/09/20 02/05/21 cholecalciferol (vitamin D3) 25 25 mcg PO BID 08/09/20 02/05/21 mcg (1,000 unit) tablet hydroxyzine HCl 50 mg tablet 50 mg PO TID PRN 08/09/20 02/05/21 linaclotide 145 mcg capsule 145 mcg PO DAILY 08/09/20 02/05/21 mirtazapine 45 mg tablet 45 mg PO BEDTIME 08/09/20 02/05/21 multivitamin 1 cap PO DAILY 08/09/20 02/05/21 omeprazole 20 mg tablet,delayed 20 mg PO DAILY 08/09/20 02/05/21 release sertraline 50 mg tablet 50 mg PO BEDTIME 08/09/20 02/05/21 Previous Rx's Medication Instructions Recorded escitalopram oxalate 10 mg tablet 10 mg PO DAILY #30 tab 09/06/20 acetaminophen 325 mg capsule 325 mg PO QID PRN #30 cap 09/16/20 aspirin 81 mg tablet,delayed 81 mg PO BEDTIME #90 tab 09/28/20 release metoprolol succinate 50 mg 50 mg PO DAILY #90 tab 09/28/20 tablet,extended release 24 hr menthol 0.44 %-zinc oxide 20.6 % 1 appl TOPICAL QID PRN #113 g 12/13/20 topical ointment (Calmoseptine) magnesium citrate 150 ml PO DAILY PRN #296 ml 12/14/20 diphenhydramine HCl 25 mg capsule 25 mg PO BEDTIME #7 cap 12/25/20 (Benadryl) melatonin 10 mg tablet,extended 10 mg PO .nightly #5 tab 01/07/21 release cefdinir 300 mg capsule 300 mg PO BID 10 Days #20 cap 04/14/21 ondansetron HCl 4 mg tablet 4 mg PO Q8H PRN #14 tab 04/14/21 (Zofran) metoprolol succinate 50 mg 50 mg PO DAILY #14 tab 05/22/21 tablet,extended release 24 hr ciprofloxacin 0.3 %-dexamethasone 4 drp OTIC (EARS) BID 7 Days ml 05/26/21 0.1 % ear drops,suspension (Ciprodex) lisinopril 40 mg tablet 40 mg PO QPM #90 tab 05/31/21 Allergies Allergy/AdvReac Type Severity Reaction Status Date / Time penicillin G [Penicillin G] Allergy Severe ITCHY/RASH Verified 05/29/21 03:27 Sulfa (Sulfonamide Allergy Severe ITCHY,RASH, Verified 05/29/21 03:27 Antibiotics) rash [Sulfa (Sulfonamides)] trimethoprim [From Bactrim] Allergy Severe HIVES Verified 05/29/21 03:27 penicillin V Allergy Unknown rash Verified 05/29/21 03:27 sulfacetamide Allergy Unknown unknown Verified 05/29/21 03:27 [From Sulfacet-R] sulfur [From Sulfacet-R] Allergy Unknown unknown Verified 05/29/21 03:27 Review of Systems Review of Systems: Yes all other systems are reviewed and are negative COUNT INCLUDES THE [facility] Past Medical History COUNT INCLUDES THE [facility] Narrative: Social history: She denies tobacco, alcohol and drug use. Medical History Anxiety Arthritis Chronic constipation Dementia Essential hypertension High blood pressure PAC (premature atrial contraction) PVC (premature ventricular contraction) SVT (supraventricular tachycardia) Vertigo Surgical History No pertinent past surgical history Social History Social History Alcohol intake: never Patient Tobacco Use Status: Never used Tobacco Use of substances other than those prescribed or required for medical reasons: No Advance Directives: No Advance Directives Information Provided: Yes Physical Exam Vital Signs: Vital Signs: Last Vital Signs Temp 99.7 F 06/17/21 05:44 Pulse 77 06/17/21 05:44 Resp 18 06/17/21 05:44 BP 181/84 H 06/17/21 05:44 Pulse Ox 94 06/17/21 05:44 Body Mass Index 24.3 Const: General: cooperative and no acute distress Orientation/consciousness: oriented to person and oriented to place Limitations: no limitations HENMT: Head: Yes normal to inspection, Yes normocephalic and Yes atraumatic Ears: external ears normal General nose exam: Normal external nose present Face and sinus: Yes normal facial exam Mouth: Normal oral and palatal mucosa present Throat: Yes posterior oropharynx normal Eyes: General: appearance normal, both eyes and all related structures Pupils: Equal, round and reactive pupils present Neck: Neck: Yes normal visual inspection, Yes no lymphadenopathy, Yes trachea midline and Yes supple Chest: Chest palpation & inspection: normal inspection of the chest and normal palpation of entire chest wall Resp: Effort & Inspection: normal respiratory effort and able to speak in complete sentences Auscultation: clear to auscultation bilaterally Cardio: Rate: regular rate Rhythm: regular rhythm Heart sounds: S1 normal heart sound present, S2 normal heart sound present and no murmurs GI: Inspection: Yes normal to inspection Palpation (GI): Soft to palpation, nontender and no guarding Auscultation: normal bowel sounds : General: Yes no CVA tenderness Back/Spine/Pelvis: Back: no CVA tenderness Skin: General skin exam: no rashes or lesions noted Neuro: General: oriented to person and oriented to place Cranial nerves: Yes CN's II-XII intact bilaterally and Yes Equal, round and reactive pupils present Cognition (Neuro): normal cognition Motor exam (neuro): 5/5 motor strength present throughout Extrem: General: Yes normal to inspection Psych: Appearance: grossly normal Speech and movement: Normal speech and movement present Affect: normal affect Attitude: cooperative Thought process: Normal thought process present Thought content: Normal thought content present Course Course Course Narrative: 75-year-old female who presents emergency department for evaluation of anxiety attack. Patient's vital signs revealed an elevated blood pressure of 181/84, patient is on blood pressure medications for her essential hypertension she is asymptomatic. The patient's exam was unremarkable. The patient was given alprazolam 0.5 mg orally and discharged home. She was advised to continue to take her medications as prescribed. The patient was given verbal and printed instructions prior to discharge. The patient was given verbal and printed instructions prior to discharge. The patient was advised to follow-up with her PCP in 2 days and to return to the emergency department if her symptoms get worse or if she develops any new symptoms that are concerning to her. Discharge Plan Discharge Clinical Impression: Generalized anxiety disorder with panic attacks Patient Disposition: Home, Self-Care Instructions: Panic Attack (ED) Additional Instructions: Continue taking medications as prescribed by your doctor. Follow-up with your doctor in 2 days. Please return to the emergency department if your symptoms get worse or if you develop any symptoms that are concerning to you. Prescriptions: No Action escitalopram oxalate 10 mg tablet 10 mg PO DAILY Qty: 30 RF: 1 metoprolol succinate 50 mg tablet extended release 24 hr 50 mg PO DAILY Qty: 90 RF: 2 aspirin 81 mg tablet,delayed release (DR/EC) 81 mg PO BEDTIME Qty: 90 RF: 2 lisinopril 40 mg tablet 40 mg PO QPM Qty: 90 RF: 4 acetaminophen 325 mg capsule 325 mg PO QID PRN (Reason: fever or pain) Qty: 30 RF: 0 melatonin 10 mg tablet extended release 10 mg PO .nightly Qty: 5 RF: 0 metoprolol succinate 50 mg tablet extended release 24 hr 50 mg PO DAILY Qty: 14 RF: 0 ciprofloxacin-dexamethasone [Ciprodex] 0.3-0.1 % drops,suspension 4 drp otic (ears) BID 7 Days RF: 0 alprazolam 0.5 mg Tablet 0.5 mg PO TID PRN (Reason: Anxiety) RF: 0 hydroxyzine HCl 50 mg Tablet 50 mg PO TID PRN (Reason: Anxiety) RF: 0 mirtazapine 45 mg Tablet 45 mg PO BEDTIME RF: 0 multivitamin Capsule 1 cap PO DAILY RF: 0 sertraline 50 mg Tablet 50 mg PO BEDTIME RF: 0 aripiprazole 2 mg Tablet 2 mg PO BEDTIME RF: 0 cholecalciferol (vitamin D3) 25 mcg (1,000 unit) Tablet 25 mcg PO BID RF: 0 omeprazole 20 mg Tablet,Delayed Release (Dr/Ec) 20 mg PO DAILY RF: 0 linaclotide 145 mcg Capsule 145 mcg PO DAILY RF: 0 diphenhydramine HCl [Benadryl] 25 mg capsule 25 mg PO BEDTIME Qty: 7 RF: 0 cefdinir 300 mg capsule 300 mg PO BID 10 Days Qty: 20 RF: 0 ondansetron HCl [Zofran] 4 mg tablet 4 mg PO Q8H PRN (Reason: nausea and vomiting) Qty: 14 RF: 0 Calmoseptine 0.44-20.6 % ointment 1 appl topical QID PRN (Reason: skin irritation) Qty: 113 RF: 0 magnesium citrate Solution 150 ml PO DAILY PRN (Reason: constipation) Qty: 296 RF: 0
[2021-06-17] MEDS: ALPRAZolam 0.5 MG TABLET PO (06:56)
== END 2021-06-17 07:18 | disposition home or self-care (01) ==
PROVIDERS: Emergency Provider Emergency Medicine Emergency Medical Services; PCP Internal Medicine Geriatric Medicine
DX: F41.1 Generalized anxiety disorder (principal); F41.0 Panic disorder [episodic paroxysmal anxiety]; I10 Essential (primary) hypertension; Z79.899 Other long term (current) drug therapy
CPT/HCPCS: 99283; 99284

== ENCOUNTER 2021-06-17 23:27 | Emergency (ER) | payer MEDICARE, MEDICAID, SELFPAY | END 2021-06-18 00:09 | disposition left against medical advice (07) | PROVIDERS: Emergency Provider Emergency Medicine; PCP Internal Medicine Geriatric Medicine | DX: R03.0 Elevated blood-pressure reading, without diagnosis of hypertension (principal) ==

== ENCOUNTER 2021-07-01 06:58 | Emergency (ER) | payer MEDICARE, MEDICAID, SELFPAY ==
--- NOTE | 2021-07-01 07:20 | PC.NURSE ---
PT PACING AND TEARFUL IN WR. DECLINING TO BE TRIAGED/SEEN AT THIS TIME
== END 2021-07-01 07:47 | disposition left against medical advice (07) ==
PROVIDERS: Emergency Provider Emergency Medicine; PCP Internal Medicine Geriatric Medicine
DX: F41.1 Generalized anxiety disorder (principal); F43.0 Acute stress reaction
CPT/HCPCS: 99281

== ENCOUNTER 2021-07-02 06:28 | Emergency (ER) | payer MEDICARE, MEDICAID, SELFPAY ==
[2021-07-02 06:40] VITALS: BP 185/91; PULSE 88; RESP 16; TEMP 37.6; O2SAT 98; BMI 24.1
--- NOTE | 2021-07-02 07:03 | ED.ANXIETY ---
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 She comes in today because she is upset her sister and it's making her BP go up. complaint: anxiety Onset (ago): day(s) (this is a daily issue) Severity: moderate Quality: constant Place: home History of similar episodes: Yes Provoking factors: emotional stress Relieving factors: medication Exacerbating factors: thinking about event Associated symptoms: other (HTN) Related Data Home Medications Medication Instructions Recorded Confirmed alprazolam 0.5 mg tablet 0.5 mg PO TID PRN 08/09/20 02/05/21 aripiprazole 2 mg tablet 2 mg PO BEDTIME 08/09/20 02/05/21 cholecalciferol (vitamin D3) 25 25 mcg PO BID 08/09/20 02/05/21 mcg (1,000 unit) tablet hydroxyzine HCl 50 mg tablet 50 mg PO TID PRN 08/09/20 02/05/21 linaclotide 145 mcg capsule 145 mcg PO DAILY 08/09/20 02/05/21 mirtazapine 45 mg tablet 45 mg PO BEDTIME 08/09/20 02/05/21 multivitamin 1 cap PO DAILY 08/09/20 02/05/21 omeprazole 20 mg tablet,delayed 20 mg PO DAILY 08/09/20 02/05/21 release sertraline 50 mg tablet 50 mg PO BEDTIME 08/09/20 02/05/21 Previous Rx's Medication Instructions Recorded escitalopram oxalate 10 mg tablet 10 mg PO DAILY #30 tab 09/06/20 acetaminophen 325 mg capsule 325 mg PO QID PRN #30 cap 09/16/20 aspirin 81 mg tablet,delayed 81 mg PO BEDTIME #90 tab 09/28/20 release metoprolol succinate 50 mg 50 mg PO DAILY #90 tab 09/28/20 tablet,extended release 24 hr menthol 0.44 %-zinc oxide 20.6 % 1 appl TOPICAL QID PRN #113 g 12/13/20 topical ointment (Calmoseptine) magnesium citrate 150 ml PO DAILY PRN #296 ml 12/14/20 diphenhydramine HCl 25 mg capsule 25 mg PO BEDTIME #7 cap 12/25/20 (Benadryl) melatonin 10 mg tablet,extended 10 mg PO .nightly #5 tab 01/07/21 release cefdinir 300 mg capsule 300 mg PO BID 10 Days #20 cap 04/14/21 ondansetron HCl 4 mg tablet 4 mg PO Q8H PRN #14 tab 04/14/21 (Zofran) metoprolol succinate 50 mg 50 mg PO DAILY #14 tab 05/22/21 tablet,extended release 24 hr ciprofloxacin 0.3 %-dexamethasone 4 drp OTIC (EARS) BID 7 Days ml 05/26/21 0.1 % ear drops,suspension (Ciprodex) lisinopril 40 mg tablet 40 mg PO QPM #90 tab 05/31/21 Allergies Allergy/AdvReac Type Severity Reaction Status Date / Time penicillin G [Penicillin G] Allergy Severe ITCHY/RASH Verified 05/29/21 03:27 Sulfa (Sulfonamide Allergy Severe ITCHY,RASH, Verified 05/29/21 03:27 Antibiotics) rash [Sulfa (Sulfonamides)] trimethoprim [From Bactrim] Allergy Severe HIVES Verified 05/29/21 03:27 penicillin V Allergy Unknown rash Verified 05/29/21 03:27 sulfacetamide Allergy Unknown unknown Verified 05/29/21 03:27 [From Sulfacet-R] sulfur [From Sulfacet-R] Allergy Unknown unknown Verified 05/29/21 03:27 Review of Systems Review of Systems: Constitutional : No Fever, No Chills ENT/Mouth : No Ear Pain, No Nasal Congestion Eyes: No Eye Pain, No Swelling, No Redness Cardiovascular : No Chest Pain, No SOB Respiratory : No Cough, No Sputum, No Dyspnea Gastrointestinal : No Nausea, No Vomiting, No Diarrhea Genitourinary : No Dysuria, No Urinary Frequency Musculoskeletal : No Myalgias Skin : No Skin Lesions, No rash Neuro : No Weakness, No Numbness, No Headache Psych : positive Anxiety, positive Depression, no SI/HI PMFSH Past Medical History Attestation statement: The following information was validated with the patient. Medical History Anxiety Arthritis Chronic constipation Dementia Essential hypertension High blood pressure PAC (premature atrial contraction) PVC (premature ventricular contraction) SVT (supraventricular tachycardia) Vertigo Surgical History No pertinent past surgical history Social History Social History Alcohol intake: never Patient Tobacco Use Status: Never used Tobacco Advance Directives: No Physical Exam Vital Signs: Vital Signs: Last Vital Signs Temp 99.6 F 07/02/21 06:40 Pulse 88 07/02/21 06:40 Resp 16 07/02/21 06:40 BP 185/91 H 07/02/21 06:40 Pulse Ox 98 07/02/21 06:40 Body Mass Index 24.1 Appearance: Alert. Oriented X3. No acute distress. Intermittently tearful Eyes: Pupils equal, round and reactive to light. ENT: Pharynx normal. Neck: Normal inspection. Neck supple. CVS: Normal heart rate and rhythm. Pulses normal. Respiratory: No respiratory distress. Breath sounds normal. Abdomen: Soft and nontender. Skin: Skin warm and dry. Normal skin color. Normal skin turgor. Extremities: No lower extremity edema. No calf ttp Neuro: Oriented X 3. No motor deficit. No sensory deficit. Steady gait. Psych: no SI/HI Course Course Course Narrative: when the patient found out she was not getting an anxiety pill she walked out prior to DC instructions MDM - Anxiety MDM Narrative Medical decision making narrative: 75 yo female with hx of HTN, anxiety, dementia here with c/o anxiety and grief due to the loss of her sister. Noreen comes to our ED daily sometimes multiple times a day for her anxiety requesting a benzodiazepine. Case management and even crisis have been involved at this point without much success in keeping Noreen at home with the PRN xanax she has. At this time while I feel bad for Noreen and her loss it is not helpful to repeatedly dose her with benzos in the ED and then to have her take her usual doses at home. She can be discharged and allowed to grieve without the use of sedating medications. Discharge Plan Discharge Clinical Impression: Generalized anxiety disorder with panic attacks Instructions: Grief and Loss (ED), Anxiety (ED) Additional Instructions: return to ED for any worsening symptoms or concerns Prescriptions: No Action escitalopram oxalate 10 mg tablet 10 mg PO DAILY Qty: 30 RF: 1 metoprolol succinate 50 mg tablet extended release 24 hr 50 mg PO DAILY Qty: 90 RF: 2 aspirin 81 mg tablet,delayed release (DR/EC) 81 mg PO BEDTIME Qty: 90 RF: 2 lisinopril 40 mg tablet 40 mg PO QPM Qty: 90 RF: 4 acetaminophen 325 mg capsule 325 mg PO QID PRN (Reason: fever or pain) Qty: 30 RF: 0 melatonin 10 mg tablet extended release 10 mg PO .nightly Qty: 5 RF: 0 metoprolol succinate 50 mg tablet extended release 24 hr 50 mg PO DAILY Qty: 14 RF: 0 ciprofloxacin-dexamethasone [Ciprodex] 0.3-0.1 % drops,suspension 4 drp otic (ears) BID 7 Days RF: 0 alprazolam 0.5 mg Tablet 0.5 mg PO TID PRN (Reason: Anxiety) RF: 0 hydroxyzine HCl 50 mg Tablet 50 mg PO TID PRN (Reason: Anxiety) RF: 0 mirtazapine 45 mg Tablet 45 mg PO BEDTIME RF: 0 multivitamin Capsule 1 cap PO DAILY RF: 0 sertraline 50 mg Tablet 50 mg PO BEDTIME RF: 0 aripiprazole 2 mg Tablet 2 mg PO BEDTIME RF: 0 cholecalciferol (vitamin D3) 25 mcg (1,000 unit) Tablet 25 mcg PO BID RF: 0 omeprazole 20 mg Tablet,Delayed Release (Dr/Ec) 20 mg PO DAILY RF: 0 linaclotide 145 mcg Capsule 145 mcg PO DAILY RF: 0 diphenhydramine HCl [Benadryl] 25 mg capsule 25 mg PO BEDTIME Qty: 7 RF: 0 cefdinir 300 mg capsule 300 mg PO BID 10 Days Qty: 20 RF: 0 ondansetron HCl [Zofran] 4 mg tablet 4 mg PO Q8H PRN (Reason: nausea and vomiting) Qty: 14 RF: 0 Calmoseptine 0.44-20.6 % ointment 1 appl topical QID PRN (Reason: skin irritation) Qty: 113 RF: 0 magnesium citrate Solution 150 ml PO DAILY PRN (Reason: constipation) Qty: 296 RF: 0 Referrals: Name,MD Nitin [Primary Care Provider] - 2 days Print Language: Georgian
== END 2021-07-02 08:03 | disposition left against medical advice (07) ==
PROVIDERS: Emergency Provider Emergency Medicine; PCP Internal Medicine Geriatric Medicine
DX: F41.1 Generalized anxiety disorder (principal); F41.0 Panic disorder [episodic paroxysmal anxiety]; Z72.89 Other problems related to lifestyle; Z63.4 Disappearance and death of family member; Z79.899 Other long term (current) drug therapy
CPT/HCPCS: 99282; 99283

== ENCOUNTER 2021-07-02 12:46 | Emergency (ER) | payer MEDICARE, MEDICAID, SELFPAY ==
--- NOTE | 2021-07-02 12:53 | ED_ITS ---
HPI - Anxiety General Chief Complaint: Anxiety Stated Complaint: ANXIETY, HPB 200/100 PER EMS Time Seen by Provider: 07/02/21 12:53 Source: patient, EMS and american sign language interpreter Mode of arrival: EMS Limitations: language barrier History of Present Illness HPI narrative: 75-year-old female here with complaints of anxiety requesting a benzodiazepine. Patient tells me that her sister recently this is what is contributing to her anxiety. Of note the patient was seen here early this morning for the same complaint and after she was told she would not be receiving any benzodiazepine and she walked out of the emergency department. Related Data Home Medications Medication Instructions Recorded Confirmed alprazolam 0.5 mg tablet 0.5 mg PO TID PRN 08/09/20 02/05/21 aripiprazole 2 mg tablet 2 mg PO BEDTIME 08/09/20 02/05/21 cholecalciferol (vitamin D3) 25 25 mcg PO BID 08/09/20 02/05/21 mcg (1,000 unit) tablet hydroxyzine HCl 50 mg tablet 50 mg PO TID PRN 08/09/20 02/05/21 linaclotide 145 mcg capsule 145 mcg PO DAILY 08/09/20 02/05/21 mirtazapine 45 mg tablet 45 mg PO BEDTIME 08/09/20 02/05/21 multivitamin 1 cap PO DAILY 08/09/20 02/05/21 omeprazole 20 mg tablet,delayed 20 mg PO DAILY 08/09/20 02/05/21 release sertraline 50 mg tablet 50 mg PO BEDTIME 08/09/20 02/05/21 Previous Rx's Medication Instructions Recorded escitalopram oxalate 10 mg tablet 10 mg PO DAILY #30 tab 09/06/20 acetaminophen 325 mg capsule 325 mg PO QID PRN #30 cap 09/16/20 aspirin 81 mg tablet,delayed 81 mg PO BEDTIME #90 tab 09/28/20 release metoprolol succinate 50 mg 50 mg PO DAILY #90 tab 09/28/20 tablet,extended release 24 hr menthol 0.44 %-zinc oxide 20.6 % 1 appl TOPICAL QID PRN #113 g 12/13/20 topical ointment (Calmoseptine) magnesium citrate 150 ml PO DAILY PRN #296 ml 12/14/20 diphenhydramine HCl 25 mg capsule 25 mg PO BEDTIME #7 cap 12/25/20 (Benadryl) melatonin 10 mg tablet,extended 10 mg PO .nightly #5 tab 01/07/21 release cefdinir 300 mg capsule 300 mg PO BID 10 Days #20 cap 04/14/21 ondansetron HCl 4 mg tablet 4 mg PO Q8H PRN #14 tab 04/14/21 (Zofran) metoprolol succinate 50 mg 50 mg PO DAILY #14 tab 05/22/21 tablet,extended release 24 hr ciprofloxacin 0.3 %-dexamethasone 4 drp OTIC (EARS) BID 7 Days ml 05/26/21 0.1 % ear drops,suspension (Ciprodex) lisinopril 40 mg tablet 40 mg PO QPM #90 tab 05/31/21 Allergies Allergy/AdvReac Type Severity Reaction Status Date / Time penicillin G [Penicillin G] Allergy Severe ITCHY/RASH Verified 05/29/21 03:27 Sulfa (Sulfonamide Allergy Severe ITCHY,RASH, Verified 05/29/21 03:27 Antibiotics) rash [Sulfa (Sulfonamides)] trimethoprim [From Bactrim] Allergy Severe HIVES Verified 05/29/21 03:27 penicillin V Allergy Unknown rash Verified 05/29/21 03:27 sulfacetamide Allergy Unknown unknown Verified 05/29/21 03:27 [From Sulfacet-R] sulfur [From Sulfacet-R] Allergy Unknown unknown Verified 05/29/21 03:27 Review of Systems Review of Systems: Yes all other systems are reviewed and are negative Constitutional: Constitutional: Reports no additional constitutional complaints, Denies body ache(s), Denies chills, Denies fever(s), Denies headache(s) and Denies weakness Eyes: Eyes: Reports no additional eye complaints and Denies change in vision ENT: Reports system reviewed and no additional complaints, except as documented, Denies dizziness, Denies headache(s), Denies nasal congestion, Denies nasal discharge and Denies neck pain Cardiovascular: Cardiovascular: Reports no additional cardiovascular complaints, Denies chest pain, Denies leg edema and Denies dyspnea Respiratory: Respiratory: Reports no additional respiratory complaints, Denies cough and Denies dyspnea Gastrointestinal: Gastrointestinal: Reports no additional gastrointestinal complaints, Denies abdominal pain, Denies diarrhea, Denies nausea and Denies vomiting Genitourinary: Genitourinary: Reports no additional female genitourinary complaints and Denies urinary incontinence Musculoskeletal: Musculoskeletal: Reports no additional musculoskeletal complaints, Denies back pain, Denies arthralgias, Denies joint swelling, Denies neck pain, Denies numbness and Denies tingling Integumentary/Breasts: Skin/Breast: Reports system reviewed and no additional complaints, except as docu and Denies rash Neurologic: Reports system reviewed and no additional complaints, except as documented, Denies Abnormal speech present, Denies dizziness, Denies headache(s), Denies numbness, Denies tingling and Denies weakness Psychiatric: Psychiatric: Reports anxiety and Denies suicidal ideation [facility] Past Medical History Attestation statement: The following information was validated with the patient. Source: old records reviewed and nursing notes reviewed Medical History Anxiety Arthritis Chronic constipation Dementia Essential hypertension High blood pressure PAC (premature atrial contraction) PVC (premature ventricular contraction) SVT (supraventricular tachycardia) Vertigo Surgical History No pertinent past surgical history Social History Social History Alcohol intake: never Patient Tobacco Use Status: Never used Tobacco Use of substances other than those prescribed or required for medical reasons: No Advance Directives: No Advance Directives Information Provided: No Physical Exam Vital Signs: Vital Signs: Last Vital Signs Temp 97.7 F 07/02/21 12:55 Pulse 75 07/02/21 12:55 Resp 17 07/02/21 12:55 BP 187/89 H 07/02/21 12:55 Pulse Ox 97 07/02/21 12:55 Body Mass Index 25.5 Const: General: cooperative, healthy appearing, comfortable and no acute distress Orientation/consciousness: patient oriented x3 Limitations: no limitations HENMT: Head: Yes normal to inspection Ears: hearing grossly normal bilaterally General nose exam: Normal external nose present Face and sinus: Yes normal facial exam Mouth: Normal oral and palatal mucosa present Throat: Yes posterior oropharynx normal Eyes: General: appearance normal, both eyes and all related structures Pupils: Equal, round and reactive pupils present Neck: Neck: Yes normal visual inspection Chest: Chest palpation & inspection: normal inspection of the chest Resp: Effort & Inspection: normal respiratory effort Auscultation: clear to auscultation bilaterally Cardio: Rate: regular rate Rhythm: regular rhythm Peripheral pulses: Peripheral pulses 2+ throughout GI: Inspection: Yes normal to inspection Palpation (GI): Soft to palpation and nontender Auscultation: normal bowel sounds Back/Spine/Pelvis: Thoracic/Lumbar Spine: thoracic and lumbar spine normal to inspection Skin: General skin exam: no rashes or lesions noted Neuro: General: patient oriented x3, moves all extremities and no focal motor deficits Cranial nerves: Yes Equal, round and reactive pupils present Cognition (Neuro): normal cognition Speech: No Abnormal speech present Gait exam (Neuro): Normal gait present Motor exam (neuro): 5/5 motor strength present throughout Extrem: General: Yes normal to inspection Psych: Other: anxious Thought content: suicidality and no homicidality Course Course Course Narrative: 75-year-old female with a history of anxiety here seeking benzodiazepine for her reports of anxiety. Per patient recent loss of a family member. Of note, the patient was seen here this morning for the similar complaint and eloped from the department after being told she would not be receiving any benzodiazepines. She comes to this ED frequently requesting the same thing. Sometimes multiple times a day. Patient tells me she ran out of her home Xanax. She does have a psychiatrist who prescribed this medication. She has a follow-up appointment in 4 days to see them. I did recommend that she call them and inform them about what is going on. I do not feel at this time better prescription for benzodiazepine is warranted. After told the patient this she requested a 1 time dose which also did not feel is warranted at this time. Both case management and crisis have been involved in the past. No SI/HI so I do no think a crisis evaluation is warranted. [facility] - Anxiety Medical Records Attestation: I reviewed the patient's medical records. Lab Data Attestation: I reviewed the patient's lab results. Discharge Plan Discharge Clinical Impression: Generalized anxiety disorder with panic attacks Patient Disposition: Home, Self-Care Instructions: Anxiety (ED) Additional Instructions: This is your 2nd visit today to the emergency department. It is recommended that you follow-up with her psychiatrist further prescriptions for your Xanax Prescriptions: No Action escitalopram oxalate 10 mg tablet 10 mg PO DAILY Qty: 30 RF: 1 metoprolol succinate 50 mg tablet extended release 24 hr 50 mg PO DAILY Qty: 90 RF: 2 aspirin 81 mg tablet,delayed release (DR/EC) 81 mg PO BEDTIME Qty: 90 RF: 2 lisinopril 40 mg tablet 40 mg PO QPM Qty: 90 RF: 4 acetaminophen 325 mg capsule 325 mg PO QID PRN (Reason: fever or pain) Qty: 30 RF: 0 melatonin 10 mg tablet extended release 10 mg PO .nightly Qty: 5 RF: 0 metoprolol succinate 50 mg tablet extended release 24 hr 50 mg PO DAILY Qty: 14 RF: 0 ciprofloxacin-dexamethasone [Ciprodex] 0.3-0.1 % drops,suspension 4 drp otic (ears) BID 7 Days RF: 0 alprazolam 0.5 mg Tablet 0.5 mg PO TID PRN (Reason: Anxiety) RF: 0 hydroxyzine HCl 50 mg Tablet 50 mg PO TID PRN (Reason: Anxiety) RF: 0 mirtazapine 45 mg Tablet 45 mg PO BEDTIME RF: 0 multivitamin Capsule 1 cap PO DAILY RF: 0 sertraline 50 mg Tablet 50 mg PO BEDTIME RF: 0 aripiprazole 2 mg Tablet 2 mg PO BEDTIME RF: 0 cholecalciferol (vitamin D3) 25 mcg (1,000 unit) Tablet 25 mcg PO BID RF: 0 omeprazole 20 mg Tablet,Delayed Release (Dr/Ec) 20 mg PO DAILY RF: 0 linaclotide 145 mcg Capsule 145 mcg PO DAILY RF: 0 diphenhydramine HCl [Benadryl] 25 mg capsule 25 mg PO BEDTIME Qty: 7 RF: 0 cefdinir 300 mg capsule 300 mg PO BID 10 Days Qty: 20 RF: 0 ondansetron HCl [Zofran] 4 mg tablet 4 mg PO Q8H PRN (Reason: nausea and vomiting) Qty: 14 RF: 0 Calmoseptine 0.44-20.6 % ointment 1 appl topical QID PRN (Reason: skin irritation) Qty: 113 RF: 0 magnesium citrate Solution 150 ml PO DAILY PRN (Reason: constipation) Qty: 296 RF: 0 Referrals: Name,MD Nitin [Primary Care Provider] - 2 days Interventions: ED Discharge Assessment Last Done: 07/02/21 13:14 Discharge Date/Time: 07/02/21 13:14
[2021-07-02 12:55] VITALS: BP 187/89; BP 200/100; PULSE 75; PULSE 80; RESP 17; TEMP 36.5; O2SAT 97; O2SAT 98; BMI 25.5
--- NOTE | 2021-07-02 12:57 | PC.NURSE ---
patient was evaluated by provider, will be discharged
== END 2021-07-02 13:14 | disposition home or self-care (01) ==
PROVIDERS: Emergency Provider Emergency Medicine; PCP Internal Medicine Geriatric Medicine
DX: F41.1 Generalized anxiety disorder (principal); F41.0 Panic disorder [episodic paroxysmal anxiety]; Z79.899 Other long term (current) drug therapy; Z79.82 Long term (current) use of aspirin; Z63.4 Disappearance and death of family member
CPT/HCPCS: 99282; 99283; 99284

== ENCOUNTER 2021-07-10 05:47 | Emergency (ER) | payer MEDICARE, MEDICAID, SELFPAY ==
--- NOTE | 2021-07-10 07:05 | ED.GENADULT ---
HPI - General Adult General Stated complaint: HBP Time Seen by Provider: 07/10/21 07:05 Source: patient and old records reviewed Mode of arrival: ambulatory Limitations: no limitations History of Present Illness MD complaint: blood pressure check, anxiety Onset (ago): year(s) Severity: mild Relieving factors: none Exacerbating factors: none Associated symptoms: denies other symptoms Treatments prior to arrival: none Related Data Home Medications Medication Instructions Recorded Confirmed alprazolam 0.5 mg tablet 0.5 mg PO TID PRN 08/09/20 02/05/21 aripiprazole 2 mg tablet 2 mg PO BEDTIME 08/09/20 02/05/21 cholecalciferol (vitamin D3) 25 25 mcg PO BID 08/09/20 02/05/21 mcg (1,000 unit) tablet hydroxyzine HCl 50 mg tablet 50 mg PO TID PRN 08/09/20 02/05/21 linaclotide 145 mcg capsule 145 mcg PO DAILY 08/09/20 02/05/21 mirtazapine 45 mg tablet 45 mg PO BEDTIME 08/09/20 02/05/21 multivitamin 1 cap PO DAILY 08/09/20 02/05/21 omeprazole 20 mg tablet,delayed 20 mg PO DAILY 08/09/20 02/05/21 release sertraline 50 mg tablet 50 mg PO BEDTIME 08/09/20 02/05/21 Previous Rx's Medication Instructions Recorded escitalopram oxalate 10 mg tablet 10 mg PO DAILY #30 tab 09/06/20 acetaminophen 325 mg capsule 325 mg PO QID PRN #30 cap 09/16/20 aspirin 81 mg tablet,delayed 81 mg PO BEDTIME #90 tab 09/28/20 release metoprolol succinate 50 mg 50 mg PO DAILY #90 tab 09/28/20 tablet,extended release 24 hr menthol 0.44 %-zinc oxide 20.6 % 1 appl TOPICAL QID PRN #113 g 12/13/20 topical ointment (Calmoseptine) magnesium citrate 150 ml PO DAILY PRN #296 ml 12/14/20 diphenhydramine HCl 25 mg capsule 25 mg PO BEDTIME #7 cap 12/25/20 (Benadryl) melatonin 10 mg tablet,extended 10 mg PO .nightly #5 tab 01/07/21 release cefdinir 300 mg capsule 300 mg PO BID 10 Days #20 cap 04/14/21 ondansetron HCl 4 mg tablet 4 mg PO Q8H PRN #14 tab 04/14/21 (Zofran) metoprolol succinate 50 mg 50 mg PO DAILY #14 tab 05/22/21 tablet,extended release 24 hr ciprofloxacin 0.3 %-dexamethasone 4 drp OTIC (EARS) BID 7 Days ml 05/26/21 0.1 % ear drops,suspension (Ciprodex) lisinopril 40 mg tablet 40 mg PO QPM #90 tab 05/31/21 Allergies Allergy/AdvReac Type Severity Reaction Status Date / Time penicillin G [Penicillin G] Allergy Severe ITCHY/RASH Verified 05/29/21 03:27 Sulfa (Sulfonamide Allergy Severe ITCHY,RASH, Verified 05/29/21 03:27 Antibiotics) rash [Sulfa (Sulfonamides)] trimethoprim [From Bactrim] Allergy Severe HIVES Verified 05/29/21 03:27 penicillin V Allergy Unknown rash Verified 05/29/21 03:27 sulfacetamide Allergy Unknown unknown Verified 05/29/21 03:27 [From Sulfacet-R] sulfur [From Sulfacet-R] Allergy Unknown unknown Verified 05/29/21 03:27 Review of Systems Review of Systems: Constitutional : No Fever, No Chills ENT/Mouth : No sore throat, No Rhinorrhea Eyes: No Eye Pain, No Swelling, No Redness Cardiovascular : No Chest Pain, No SOB Respiratory : No Cough, No Sputum Gastrointestinal : No Nausea, No Vomiting Skin : No Skin Lesions, No rash Neuro : No Weakness, No Numbness, No Dizziness, No Headache Psych : pos Anxiety/Panic, No Depression PMFSH Past Medical History Attestation statement: The following information was validated with the patient. Medical History Anxiety Arthritis Chronic constipation Dementia Essential hypertension High blood pressure PAC (premature atrial contraction) PVC (premature ventricular contraction) SVT (supraventricular tachycardia) Vertigo Surgical History No pertinent past surgical history Social History Social History Alcohol intake: never Patient Tobacco Use Status: Never used Tobacco Advance Directives: No Advance Directives Information Provided: No Physical Exam Vital Signs: Appearance: Alert. Oriented X3. No acute distress. Eyes: Pupils equal, round and reactive to light. ENT: Pharynx normal. Neck: Normal inspection. Neck supple. CVS: Normal heart rate and rhythm. Respiratory: No respiratory distress. Skin: Skin warm and dry. Normal skin color. Extremities: No lower extremity edema. Neuro: Oriented X 3. No motor deficit. No sensory deficit. Medical Decision Making MDM Narrative Medical decision making narrative: 75 yo female with frequent visits to the ED - came in this morning for her BP once it was checked in ED 160/60s she states she wanted to leave and go to the health center. Steady gait, no concerning complaints at this time. Eloped from ED after BP checked Discharge Plan Discharge Clinical Impression: Generalized anxiety disorder with panic attacks Patient Disposition: Elopement Prescriptions: No Action escitalopram oxalate 10 mg tablet 10 mg PO DAILY Qty: 30 RF: 1 metoprolol succinate 50 mg tablet extended release 24 hr 50 mg PO DAILY Qty: 90 RF: 2 aspirin 81 mg tablet,delayed release (DR/EC) 81 mg PO BEDTIME Qty: 90 RF: 2 lisinopril 40 mg tablet 40 mg PO QPM Qty: 90 RF: 4 acetaminophen 325 mg capsule 325 mg PO QID PRN (Reason: fever or pain) Qty: 30 RF: 0 melatonin 10 mg tablet extended release 10 mg PO .nightly Qty: 5 RF: 0 metoprolol succinate 50 mg tablet extended release 24 hr 50 mg PO DAILY Qty: 14 RF: 0 ciprofloxacin-dexamethasone [Ciprodex] 0.3-0.1 % drops,suspension 4 drp otic (ears) BID 7 Days RF: 0 alprazolam 0.5 mg Tablet 0.5 mg PO TID PRN (Reason: Anxiety) RF: 0 hydroxyzine HCl 50 mg Tablet 50 mg PO TID PRN (Reason: Anxiety) RF: 0 mirtazapine 45 mg Tablet 45 mg PO BEDTIME RF: 0 multivitamin Capsule 1 cap PO DAILY RF: 0 sertraline 50 mg Tablet 50 mg PO BEDTIME RF: 0 aripiprazole 2 mg Tablet 2 mg PO BEDTIME RF: 0 cholecalciferol (vitamin D3) 25 mcg (1,000 unit) Tablet 25 mcg PO BID RF: 0 omeprazole 20 mg Tablet,Delayed Release (Dr/Ec) 20 mg PO DAILY RF: 0 linaclotide 145 mcg Capsule 145 mcg PO DAILY RF: 0 diphenhydramine HCl [Benadryl] 25 mg capsule 25 mg PO BEDTIME Qty: 7 RF: 0 cefdinir 300 mg capsule 300 mg PO BID 10 Days Qty: 20 RF: 0 ondansetron HCl [Zofran] 4 mg tablet 4 mg PO Q8H PRN (Reason: nausea and vomiting) Qty: 14 RF: 0 Calmoseptine 0.44-20.6 % ointment 1 appl topical QID PRN (Reason: skin irritation) Qty: 113 RF: 0 magnesium citrate Solution 150 ml PO DAILY PRN (Reason: constipation) Qty: 296 RF: 0
--- NOTE | 2021-07-10 07:10 | PC.NURSE ---
PT SITTING IN HER ROOM ON THIS SHIFTS ARRIVAL IN NO ACUTE DISTRESS. PT WAS SEEN BY DR NIETO. HER PRESSURE IS 162/63 HR IS 78
== END 2021-07-10 07:17 | disposition left against medical advice (07) ==
PROVIDERS: Emergency Provider Emergency Medicine; PCP Internal Medicine Geriatric Medicine
DX: F41.1 Generalized anxiety disorder (principal); F41.0 Panic disorder [episodic paroxysmal anxiety]; I10 Essential (primary) hypertension

== ENCOUNTER 2021-07-10 11:14 | Outpatient (REF) | payer MEDICARE, MEDICAID, SELFPAY ==
--- NOTE | ~2021-07-10 | MM_ITS ---
EXAMINATION: MM SCREENING DIGITAL BREAST TOMOSYNTHESIS, BILATERAL CLINICAL INFORMATION: Screening. Asymptomatic. The lifetime risk of breast cancer based on the Tyrer-Cuzick Model is under 2%. COMPARISON: Mammography: 07/07/2020, 01/11/2019, 12/19/2017 TECHNIQUE: Digital breast tomosynthesis is performed in both the craniocaudal and mediolateral oblique views along with computer-aided detection (CAD). Synthesized 2D images are generated from the tomosynthesis. FINDINGS: There are scattered areas of fibroglandular density (ACR BI-RADS breast composition Category b). There are no significant masses, abnormal calcifications, or other abnormalities. There are scattered benign coarse and vascular calcifications again seen. The axilla and skin contours are unremarkable. No significant changes. MM/MM tomosynthesis screening BI IMPRESSION: No mammographic evidence of malignancy. ASSESSMENT: BI-RADS 1: Negative RECOMMENDATION: Routine annual mammography screening. This patient's information was entered into a reminder system with a target due date for their next mammogram.
== END 2021-07-10 11:15 | disposition home or self-care (01) ==
LOC: HO.MAMMO 11:14
PROVIDERS: Visit Provider Internal Medicine Geriatric Medicine
DX: Z12.31 Encounter for screening mammogram for malignant neoplasm of breast (principal)
CPT/HCPCS: 77063; 77067

== ENCOUNTER 2021-07-28 14:06 | Emergency (ER) | payer MEDICARE, MEDICAID, SELFPAY | END 2021-07-28 15:57 | disposition left against medical advice (07) | PROVIDERS: Emergency Provider Emergency Medicine; PCP Internal Medicine Geriatric Medicine | DX: Z04.9 Encounter for examination and observation for unspecified reason (principal) ==

== ENCOUNTER 2021-07-29 07:54 | Emergency (ER) | payer MEDICARE, MEDICAID, SELFPAY | END 2021-07-29 09:34 | disposition left against medical advice (07) | PROVIDERS: Emergency Provider Emergency Medicine; PCP Internal Medicine Geriatric Medicine | DX: H92.03 Otalgia, bilateral (principal) ==

== ENCOUNTER 2021-07-30 20:24 | Emergency (ER) | payer MEDICARE, MEDICAID, SELFPAY ==
[2021-07-30 20:40] VITALS: BP 162/73; PULSE 87; RESP 16; TEMP 36.4; O2SAT 97; BMI 24.2
[2021-07-30 21:25] VITALS: BP 162/72; PULSE 78; O2SAT 99
--- NOTE | 2021-07-30 22:17 | ED.GENADULT ---
HPI - General Adult General Chief complaint: Anxiety Stated complaint: anxiety Time Seen by Provider: 07/30/21 22:17 Source: patient Mode of arrival: ambulatory Limitations: no limitations and language barrier History of Present Illness HPI narrative: Patient is anxious because she is out of blood pressure medication and anxiety medication Onset (ago): hour(s) Severity: mild Pain Consistency: constant Associated symptoms: denies other symptoms Related Data Home Medications Medication Instructions Recorded Confirmed alprazolam 0.5 mg tablet 0.5 mg PO TID PRN 08/09/20 02/05/21 aripiprazole 2 mg tablet 2 mg PO BEDTIME 08/09/20 02/05/21 cholecalciferol (vitamin D3) 25 25 mcg PO BID 08/09/20 02/05/21 mcg (1,000 unit) tablet hydroxyzine HCl 50 mg tablet 50 mg PO TID PRN 08/09/20 02/05/21 linaclotide 145 mcg capsule 145 mcg PO DAILY 08/09/20 02/05/21 mirtazapine 45 mg tablet 45 mg PO BEDTIME 08/09/20 02/05/21 multivitamin 1 cap PO DAILY 08/09/20 02/05/21 omeprazole 20 mg tablet,delayed 20 mg PO DAILY 08/09/20 02/05/21 release sertraline 50 mg tablet 50 mg PO BEDTIME 08/09/20 02/05/21 Previous Rx's Medication Instructions Recorded escitalopram oxalate 10 mg tablet 10 mg PO DAILY #30 tab 09/06/20 acetaminophen 325 mg capsule 325 mg PO QID PRN #30 cap 09/16/20 aspirin 81 mg tablet,delayed 81 mg PO BEDTIME #90 tab 09/28/20 release metoprolol succinate 50 mg 50 mg PO DAILY #90 tab 09/28/20 tablet,extended release 24 hr menthol 0.44 %-zinc oxide 20.6 % 1 appl TOPICAL QID PRN #113 g 12/13/20 topical ointment (Calmoseptine) magnesium citrate 150 ml PO DAILY PRN #296 ml 12/14/20 diphenhydramine HCl 25 mg capsule 25 mg PO BEDTIME #7 cap 12/25/20 (Benadryl) melatonin 10 mg tablet,extended 10 mg PO .nightly #5 tab 01/07/21 release cefdinir 300 mg capsule 300 mg PO BID 10 Days #20 cap 04/14/21 ondansetron HCl 4 mg tablet 4 mg PO Q8H PRN #14 tab 04/14/21 (Zofran) metoprolol succinate 50 mg 50 mg PO DAILY #14 tab 05/22/21 tablet,extended release 24 hr ciprofloxacin 0.3 %-dexamethasone 4 drp OTIC (EARS) BID 7 Days ml 05/26/21 0.1 % ear drops,suspension (Ciprodex) lisinopril 40 mg tablet 40 mg PO QPM #90 tab 05/31/21 Allergies Allergy/AdvReac Type Severity Reaction Status Date / Time penicillin G [Penicillin G] Allergy Severe ITCHY/RASH Verified 05/29/21 03:27 Sulfa (Sulfonamide Allergy Severe ITCHY,RASH, Verified 05/29/21 03:27 Antibiotics) rash [Sulfa (Sulfonamides)] trimethoprim [From Bactrim] Allergy Severe HIVES Verified 05/29/21 03:27 penicillin V Allergy Unknown rash Verified 05/29/21 03:27 sulfacetamide Allergy Unknown unknown Verified 05/29/21 03:27 [From Sulfacet-R] sulfur [From Sulfacet-R] Allergy Unknown unknown Verified 05/29/21 03:27 Review of Systems Constitutional: Constitutional: Reports no additional constitutional complaints Eyes: Eyes: Reports no additional eye complaints ENT: Denies dizziness Cardiovascular: Cardiovascular: Reports no additional cardiovascular complaints Respiratory: Respiratory: Reports as per HPI Gastrointestinal: Gastrointestinal: Reports no additional gastrointestinal complaints Genitourinary: Genitourinary: Reports no additional female genitourinary complaints Musculoskeletal: Musculoskeletal: Reports no additional musculoskeletal complaints Integumentary/Breasts: Skin/Breast: Denies rash Neurologic: Reports system reviewed and no additional complaints, except as documented, Denies dizziness and Denies Sensory deficit (Neuro) Psychiatric: Psychiatric: Denies anxiety PMFSH Past Medical History Medical History Anxiety Arthritis Chronic constipation Dementia Essential hypertension High blood pressure PAC (premature atrial contraction) PVC (premature ventricular contraction) SVT (supraventricular tachycardia) Vertigo Surgical History No pertinent past surgical history Social History Social History Alcohol intake: never Patient Tobacco Use Status: Never used Tobacco Advance Directives: No Advance Directives Information Provided: No Physical Exam Vital Signs: Vital Signs: Last Vital Signs Temp 97.5 F 07/30/21 20:40 Pulse 87 07/30/21 20:40 Resp 16 07/30/21 20:40 BP 162/73 H 07/30/21 20:40 Pulse Ox 97 07/30/21 20:40 Body Mass Index 24.2 Const: Other: very anxious and tearful Nutritional Appearance: average body habitus Orientation/consciousness: oriented to person and patient oriented x3 Limitations: no limitations HENMT: Head: Yes normal to inspection Ears: external ears normal General nose exam: Normal external nose present Mouth: Normal oral and palatal mucosa present and oropharynx normal Throat: Yes posterior oropharynx normal Eyes: General: appearance normal, both eyes and all related structures Neck: Other: supple Neck: Yes normal visual inspection Chest: Chest palpation & inspection: normal inspection of the chest Resp: Auscultation: clear to auscultation bilaterally Cardio: Jugular venous distension: no JVD Rate: regular rate Rhythm: regular rhythm Heart sounds: S1 normal heart sound present and S2 normal heart sound present GI: Inspection: Yes normal to inspection Palpation (GI): Soft to palpation, nontender and No hepatosplenomegaly present Auscultation: normal bowel sounds : General: Yes no CVA tenderness Back/Spine/Pelvis: Back: no CVA tenderness Skin: General skin exam: no rashes or lesions noted Neuro: General: oriented to person and patient oriented x3 Cranial nerves: Yes CN's II-XII intact bilaterally Motor exam (neuro): 5/5 motor strength present throughout Sensory Exam: No Sensory deficit (Neuro) Extrem: General: Yes normal to inspection Psych: Appearance: grossly normal Course Reevaluation(s) Reevaluation #1: patient known well to the ED. Will give her alprazolam and dc home Time: 22:37 Discharge Plan Discharge Clinical Impression: Acute anxiety Patient Disposition: Home, Self-Care Instructions: Anxiety (ED) Prescriptions: No Action escitalopram oxalate 10 mg tablet 10 mg PO DAILY Qty: 30 RF: 1 metoprolol succinate 50 mg tablet extended release 24 hr 50 mg PO DAILY Qty: 90 RF: 2 aspirin 81 mg tablet,delayed release (DR/EC) 81 mg PO BEDTIME Qty: 90 RF: 2 lisinopril 40 mg tablet 40 mg PO QPM Qty: 90 RF: 4 acetaminophen 325 mg capsule 325 mg PO QID PRN (Reason: fever or pain) Qty: 30 RF: 0 melatonin 10 mg tablet extended release 10 mg PO .nightly Qty: 5 RF: 0 metoprolol succinate 50 mg tablet extended release 24 hr 50 mg PO DAILY Qty: 14 RF: 0 ciprofloxacin-dexamethasone [Ciprodex] 0.3-0.1 % drops,suspension 4 drp otic (ears) BID 7 Days RF: 0 alprazolam 0.5 mg Tablet 0.5 mg PO TID PRN (Reason: Anxiety) RF: 0 hydroxyzine HCl 50 mg Tablet 50 mg PO TID PRN (Reason: Anxiety) RF: 0 mirtazapine 45 mg Tablet 45 mg PO BEDTIME RF: 0 multivitamin Capsule 1 cap PO DAILY RF: 0 sertraline 50 mg Tablet 50 mg PO BEDTIME RF: 0 aripiprazole 2 mg Tablet 2 mg PO BEDTIME RF: 0 cholecalciferol (vitamin D3) 25 mcg (1,000 unit) Tablet 25 mcg PO BID RF: 0 omeprazole 20 mg Tablet,Delayed Release (Dr/Ec) 20 mg PO DAILY RF: 0 linaclotide 145 mcg Capsule 145 mcg PO DAILY RF: 0 diphenhydramine HCl [Benadryl] 25 mg capsule 25 mg PO BEDTIME Qty: 7 RF: 0 cefdinir 300 mg capsule 300 mg PO BID 10 Days Qty: 20 RF: 0 ondansetron HCl [Zofran] 4 mg tablet 4 mg PO Q8H PRN (Reason: nausea and vomiting) Qty: 14 RF: 0 Calmoseptine 0.44-20.6 % ointment 1 appl topical QID PRN (Reason: skin irritation) Qty: 113 RF: 0 magnesium citrate Solution 150 ml PO DAILY PRN (Reason: constipation) Qty: 296 RF: 0 Referrals: Delfina Stafford MD [Primary Care Provider] - 1 week
[2021-07-30] MEDS: ALPRAZolam 0.5 MG TABLET PO (22:50)
== END 2021-07-30 22:53 | disposition home or self-care (01) ==
PROVIDERS: Emergency Provider Emergency Medicine; PCP Internal Medicine
DX: F41.1 Generalized anxiety disorder (principal); F43.0 Acute stress reaction; Z79.899 Other long term (current) drug therapy
CPT/HCPCS: 99283

== ENCOUNTER 2021-07-31 04:16 | Emergency (ER) | payer MEDICARE, MEDICAID, SELFPAY ==
[2021-07-31 04:20] VITALS: BP 176/89; PULSE 95; RESP 16; TEMP 36.2; O2SAT 98; BMI 22.6
[2021-07-31] MEDS: clonazePAM 0.5 MG TABLET PO (04:47)
--- NOTE | 2021-07-31 04:53 | ED_ITS ---
HPI - General Adult General Chief complaint: General Medical Stated complaint: High BP Time Seen by Provider: 07/31/21 04:32 Source: patient Mode of arrival: ambulatory Limitations: no limitations History of Present Illness HPI narrative: Patient with feeling very anxious take Zoloft , Klonopin as needed missed her metoprolol yesterday blood pressure 176/89 Related Data Home Medications Medication Instructions Recorded Confirmed alprazolam 0.5 mg tablet 0.5 mg PO TID PRN 08/09/20 02/05/21 aripiprazole 2 mg tablet 2 mg PO BEDTIME 08/09/20 02/05/21 cholecalciferol (vitamin D3) 25 25 mcg PO BID 08/09/20 02/05/21 mcg (1,000 unit) tablet hydroxyzine HCl 50 mg tablet 50 mg PO TID PRN 08/09/20 02/05/21 linaclotide 145 mcg capsule 145 mcg PO DAILY 08/09/20 02/05/21 mirtazapine 45 mg tablet 45 mg PO BEDTIME 08/09/20 02/05/21 multivitamin 1 cap PO DAILY 08/09/20 02/05/21 omeprazole 20 mg tablet,delayed 20 mg PO DAILY 08/09/20 02/05/21 release sertraline 50 mg tablet 50 mg PO BEDTIME 08/09/20 02/05/21 Previous Rx's Medication Instructions Recorded escitalopram oxalate 10 mg tablet 10 mg PO DAILY #30 tab 09/06/20 acetaminophen 325 mg capsule 325 mg PO QID PRN #30 cap 09/16/20 aspirin 81 mg tablet,delayed 81 mg PO BEDTIME #90 tab 09/28/20 release metoprolol succinate 50 mg 50 mg PO DAILY #90 tab 09/28/20 tablet,extended release 24 hr menthol 0.44 %-zinc oxide 20.6 % 1 appl TOPICAL QID PRN #113 g 12/13/20 topical ointment (Calmoseptine) magnesium citrate 150 ml PO DAILY PRN #296 ml 12/14/20 diphenhydramine HCl 25 mg capsule 25 mg PO BEDTIME #7 cap 12/25/20 (Benadryl) melatonin 10 mg tablet,extended 10 mg PO .nightly #5 tab 01/07/21 release cefdinir 300 mg capsule 300 mg PO BID 10 Days #20 cap 04/14/21 ondansetron HCl 4 mg tablet 4 mg PO Q8H PRN #14 tab 04/14/21 (Zofran) metoprolol succinate 50 mg 50 mg PO DAILY #14 tab 05/22/21 tablet,extended release 24 hr ciprofloxacin 0.3 %-dexamethasone 4 drp OTIC (EARS) BID 7 Days ml 05/26/21 0.1 % ear drops,suspension (Ciprodex) lisinopril 40 mg tablet 40 mg PO QPM #90 tab 05/31/21 Allergies Allergy/AdvReac Type Severity Reaction Status Date / Time penicillin G [Penicillin G] Allergy Severe ITCHY/RASH Verified 05/29/21 03:27 Sulfa (Sulfonamide Allergy Severe ITCHY,RASH, Verified 05/29/21 03:27 Antibiotics) rash [Sulfa (Sulfonamides)] trimethoprim [From Bactrim] Allergy Severe HIVES Verified 05/29/21 03:27 penicillin V Allergy Unknown rash Verified 05/29/21 03:27 sulfacetamide Allergy Unknown unknown Verified 05/29/21 03:27 [From Sulfacet-R] sulfur [From Sulfacet-R] Allergy Unknown unknown Verified 05/29/21 03:27 [facility] Past Medical History Medical History Anxiety Arthritis Chronic constipation Dementia Essential hypertension High blood pressure PAC (premature atrial contraction) PVC (premature ventricular contraction) SVT (supraventricular tachycardia) Vertigo Surgical History No pertinent past surgical history Social History Social History Alcohol intake: never Patient Tobacco Use Status: Never used Tobacco Advance Directives: No Advance Directives Information Provided: Yes Physical Exam Vital Signs: Vital Signs: Last Vital Signs Temp 97.1 F 07/31/21 04:20 Pulse 83 07/31/21 05:09 Resp 20 07/31/21 05:09 BP 193/88 H 07/31/21 05:09 Pulse Ox 98 07/31/21 04:20 Body Mass Index 22.6 Appearance: Alert. Oriented X3. No acute distress. Anxious Eyes: PERRLA, No Nystagmus ENT: Pharynx normal. Oral Mucosa moist Neck: Normal inspection. Neck supple. CVS: Normal heart rate and rhythm. Pulses normal. Respiratory: No respiratory distress. Equal air entry bilateral, no wheezing/rales/rhonchi Abdomen: Soft and nontender. Bowel sounds are present, no mass palpable, no CVA tenderness Skin: Skin warm and dry. Normal skin color. Normal skin turgor. Extremities: No lower extremity edema. No calf tenderness Neuro: Oriented X 3. Discharge Plan Discharge Clinical Impression: Generalized anxiety disorder with panic attacks Patient Disposition: Home, Self-Care Instructions: Anxiety (ED) Prescriptions: No Action escitalopram oxalate 10 mg tablet 10 mg PO DAILY Qty: 30 RF: 1 metoprolol succinate 50 mg tablet extended release 24 hr 50 mg PO DAILY Qty: 90 RF: 2 aspirin 81 mg tablet,delayed release (DR/EC) 81 mg PO BEDTIME Qty: 90 RF: 2 lisinopril 40 mg tablet 40 mg PO QPM Qty: 90 RF: 4 acetaminophen 325 mg capsule 325 mg PO QID PRN (Reason: fever or pain) Qty: 30 RF: 0 melatonin 10 mg tablet extended release 10 mg PO .nightly Qty: 5 RF: 0 metoprolol succinate 50 mg tablet extended release 24 hr 50 mg PO DAILY Qty: 14 RF: 0 ciprofloxacin-dexamethasone [Ciprodex] 0.3-0.1 % drops,suspension 4 drp otic (ears) BID 7 Days RF: 0 alprazolam 0.5 mg Tablet 0.5 mg PO TID PRN (Reason: Anxiety) RF: 0 hydroxyzine HCl 50 mg Tablet 50 mg PO TID PRN (Reason: Anxiety) RF: 0 mirtazapine 45 mg Tablet 45 mg PO BEDTIME RF: 0 multivitamin Capsule 1 cap PO DAILY RF: 0 sertraline 50 mg Tablet 50 mg PO BEDTIME RF: 0 aripiprazole 2 mg Tablet 2 mg PO BEDTIME RF: 0 cholecalciferol (vitamin D3) 25 mcg (1,000 unit) Tablet 25 mcg PO BID RF: 0 omeprazole 20 mg Tablet,Delayed Release (Dr/Ec) 20 mg PO DAILY RF: 0 linaclotide 145 mcg Capsule 145 mcg PO DAILY RF: 0 diphenhydramine HCl [Benadryl] 25 mg capsule 25 mg PO BEDTIME Qty: 7 RF: 0 cefdinir 300 mg capsule 300 mg PO BID 10 Days Qty: 20 RF: 0 ondansetron HCl [Zofran] 4 mg tablet 4 mg PO Q8H PRN (Reason: nausea and vomiting) Qty: 14 RF: 0 Calmoseptine 0.44-20.6 % ointment 1 appl topical QID PRN (Reason: skin irritation) Qty: 113 RF: 0 magnesium citrate Solution 150 ml PO DAILY PRN (Reason: constipation) Qty: 296 RF: 0 Interventions: ED Discharge Assessment Last Done: 07/31/21 05:22 Discharge Date/Time: 07/31/21 05:22
[2021-07-31 05:09] VITALS: BP 193/88; PULSE 83; RESP 20
--- NOTE | 2021-07-31 05:15 | PC.NURSE ---
Medicated per MAR.
== END 2021-07-31 05:22 | disposition home or self-care (01) ==
PROVIDERS: Emergency Provider Internal Medicine
DX: F41.0 Panic disorder [episodic paroxysmal anxiety] (principal); F41.1 Generalized anxiety disorder; F43.0 Acute stress reaction; Z79.899 Other long term (current) drug therapy
CPT/HCPCS: 99283; 99284

== ENCOUNTER → 2021-08-01 11:00 | Outpatient (BNVA) | payer MEDICARE, MEDICAID, SELFPAY | PROVIDERS: Visit Provider Surgery | DX: K64.4 Residual hemorrhoidal skin tags (principal); K64.8 Other hemorrhoids | CPT/HCPCS: 46600; 99212 ==

== ENCOUNTER 2021-08-06 07:07 | Emergency (ER) | payer MEDICARE, MEDICAID, SELFPAY ==
[2021-08-06 07:16] VITALS: BP 167/89; PULSE 82; RESP 18; TEMP 37.4; O2SAT 98; BMI 27.3
== END 2021-08-06 07:50 | disposition left against medical advice (07) ==
PROVIDERS: Emergency Provider Emergency Medicine; PCP Internal Medicine Geriatric Medicine
DX: H92.02 Otalgia, left ear (principal); R42 Dizziness and giddiness
CPT/HCPCS: 99281; 99282

== ENCOUNTER 2021-09-01 10:04 | Emergency (ER) | payer MEDICARE, MEDICAID, SELFPAY ==
[2021-09-01 10:06] VITALS: BP 144/85; PULSE 82; RESP 18; TEMP 36.7; O2SAT 98; BMI 24.4
--- NOTE | 2021-09-01 11:05 | ED_ITS ---
HPI - Ear Problem General Chief complaint: Ear Problems Stated complaint: ear pain, dizziness Time Seen by Provider: 09/01/21 10:54 Source: patient Mode of arrival: ambulatory Limitations: no limitations History of Present Illness HPI Narrative: 75-year-old female with a history of anxiety, constipation, SVT, hypertension, recurring ear infections, and vertigo who presents to the ER from home with reports of left-sided ear pain for the last 2 weeks. She reports dizziness as well for the last few days. She reports this feels similar to her prior vertigo episodes. She is known to get worsening vertigo when she has not your infections. She has not had any infections since the beginning of the summer. Patient also complains of increased anxiety. She has been compliant with all of her medications. She denies any head trauma, chest pain, shortness of breath, nausea, vomiting, weakness, numbness, tingling. No fever or chills. No hearing change or discharge from the ear. MD Complaint: ear pain Location: left ear Duration: constant Severity: moderate Relieving factors: nothing Exacerbating factors: position of head and palpation Discharge from ear: no Associated symptoms ear: other (Dizziness) Treatment prior to arrival: none Related Data Home Medications Medication Instructions Recorded Confirmed alprazolam 0.5 mg tablet 0.5 mg PO TID PRN 08/09/20 08/01/21 aripiprazole 2 mg tablet 2 mg PO BEDTIME 08/09/20 08/01/21 cholecalciferol (vitamin D3) 25 25 mcg PO BID 08/09/20 08/01/21 mcg (1,000 unit) tablet hydroxyzine HCl 50 mg tablet 50 mg PO TID PRN 08/09/20 08/01/21 linaclotide 145 mcg capsule 145 mcg PO DAILY 08/09/20 08/01/21 mirtazapine 45 mg tablet 45 mg PO BEDTIME 08/09/20 08/01/21 multivitamin 1 cap PO DAILY 08/09/20 08/01/21 omeprazole 20 mg tablet,delayed 20 mg PO DAILY 08/09/20 08/01/21 release sertraline 50 mg tablet 50 mg PO BEDTIME 08/09/20 08/01/21 Previous Rx's Medication Instructions Recorded escitalopram oxalate 10 mg tablet 10 mg PO DAILY #30 tab 09/06/20 acetaminophen 325 mg capsule 325 mg PO QID PRN #30 cap 09/16/20 aspirin 81 mg tablet,delayed 81 mg PO BEDTIME #90 tab 09/28/20 release metoprolol succinate 50 mg 50 mg PO DAILY #90 tab 09/28/20 tablet,extended release 24 hr menthol 0.44 %-zinc oxide 20.6 % 1 appl TOPICAL QID PRN #113 g 12/13/20 topical ointment (Calmoseptine) magnesium citrate 150 ml PO DAILY PRN #296 ml 12/14/20 diphenhydramine HCl 25 mg capsule 25 mg PO BEDTIME #7 cap 12/25/20 (Benadryl) melatonin 10 mg tablet,extended 10 mg PO .nightly #5 tab 01/07/21 release cefdinir 300 mg capsule 300 mg PO BID 10 Days #20 cap 04/14/21 ondansetron HCl 4 mg tablet 4 mg PO Q8H PRN #14 tab 04/14/21 (Zofran) metoprolol succinate 50 mg 50 mg PO DAILY #14 tab 05/22/21 tablet,extended release 24 hr ciprofloxacin 0.3 %-dexamethasone 4 drp OTIC (EARS) BID 7 Days ml 05/26/21 0.1 % ear drops,suspension (Ciprodex) lisinopril 40 mg tablet 40 mg PO QPM #90 tab 05/31/21 polyethylene glycol 3350 17 17 g PO DAILY PRN #238 g 07/31/21 gram/dose oral powder (Miralax) hydrocortisone acetate 25 mg 25 mg NC BID #12 ea 08/01/21 rectal suppository (Anucort-HC) cefuroxime axetil 500 mg tablet 500 mg PO BID 7 Days #14 tab 09/01/21 meclizine 25 mg tablet 25 mg PO TID PRN #10 tab 09/01/21 Allergies Allergy/AdvReac Type Severity Reaction Status Date / Time penicillin G [Penicillin G] Allergy Severe ITCHY/RASH Verified 08/01/21 11:50 Sulfa (Sulfonamide Allergy Severe ITCHY,RASH, Verified 08/01/21 11:50 Antibiotics) rash [Sulfa (Sulfonamides)] trimethoprim [From Bactrim] Allergy Severe HIVES Verified 08/01/21 11:50 penicillin V Allergy Unknown rash Verified 08/01/21 11:50 sulfacetamide Allergy Unknown unknown Verified 08/01/21 11:50 [From Sulfacet-R] sulfur [From Sulfacet-R] Allergy Unknown unknown Verified 08/01/21 11:50 Review of Systems Review of Systems: Constitutional: No Fever, No Chills ENT/Mouth: No sore throat, No Rhinorrhea, No Swallowing Difficulty, +ear pain Eyes: No Eye Pain, No Swelling, No Redness Cardiovascular: No Chest Pain, No SOB Gastrointestinal: No Nausea, No Vomiting Musculoskeletal: No joint pain, No Myalgias Neuro: No Weakness, No Numbness, + Dizziness, No Headache Psych: + Anxiety/Panic, No Depression Heme/Lymph: No Lymphadenopathy [facility] Past Medical History Medical History (Updated 09/01/21 @ 11:06 by SARA Chris) Anxiety Arthritis Bleeding hemorrhoids Chronic constipation Dementia Essential hypertension High blood pressure PAC (premature atrial contraction) PVC (premature ventricular contraction) SVT (supraventricular tachycardia) Vertigo Surgical History No pertinent past surgical history Social History Social History Alcohol intake: never Patient Tobacco Use Status: Never used Tobacco Use of substances other than those prescribed or required for medical reasons: No Advance Directives: No Physical Exam Vital Signs: Vital Signs: Last Vital Signs Temp 98.0 F 09/01/21 10:06 Pulse 82 09/01/21 10:06 Resp 18 09/01/21 10:06 BP 144/85 H 09/01/21 10:06 Pulse Ox 98 09/01/21 10:06 Body Mass Index 24.4 Appearance: Alert. Oriented X3. No acute distress. Eyes: Pupils equal, round and reactive to light. ENT: Pharynx normal. Tonsils are normal in appearance, no swelling or exudate. Left ear with normal external auditory canal, left tympanic membrane is erythematous and bulging, effusion present. Tenderness of EAC. Normal appearing right EAC and TM Neck: Normal inspection. Neck supple. No lymphadenopathy CVS: Normal heart rate and rhythm. Pulses normal. Respiratory: No respiratory distress. Breath sounds normal. Skin: Skin warm and dry. Normal skin color. Normal skin turgor. No rashes. Extremities: No lower extremity edema. Neuro: Oriented X 3. No motor deficit. No sensory deficit. Ambulates with steady gait. Nonfocal Course Course Course Narrative: 75-year-old female presenting to the ER with dizziness and left ear pain for the last 2 weeks. She is known to have recurrent ear infections and vertigo. This feels similar to her prior episodes. She has a nonfocal neuro exam. Her left ear appears to be acutely infected. Will start her on a 7 day course of cephalosporin given her penicillin allergy. Will also give her refill of her meclizine which do not work well for her vertigo. She is stable for discharge home with plan to follow up with her primary care doctor next week. Asking for something for anxiety but she was encouraged follow-up with her primary care doctor. Stable for discharge home Discharge Plan Discharge Clinical Impression: Otitis media Qualifiers: Otitis media type: suppurative Chronicity: acute Laterality: left Recurrence: recurrent Spontaneous tympanic membrane rupture: without spontaneous rupture Qualified Code(s): H66.005 - Acute suppurative otitis media without spontaneous rupture of ear drum, recurrent, left ear Patient Disposition: Home, Self-Care Instructions: Ear Infection (ED) Additional Instructions: Take the antibiotics as prescribed, complete the entire course Do not get water in her ear. Take the prescribed meclizine as needed for dizziness. Rest and stay hydrated Follow-up with your doctor next week Prescriptions: New cefuroxime axetil 500 mg tablet 500 mg PO BID 7 Days Qty: 14 RF: 0 meclizine 25 mg tablet 25 mg PO TID PRN (Reason: dizziness) Qty: 10 RF: 0 No Action escitalopram oxalate 10 mg tablet 10 mg PO DAILY Qty: 30 RF: 1 metoprolol succinate 50 mg tablet extended release 24 hr 50 mg PO DAILY Qty: 90 RF: 2 aspirin 81 mg tablet,delayed release (DR/EC) 81 mg PO BEDTIME Qty: 90 RF: 2 lisinopril 40 mg tablet 40 mg PO QPM Qty: 90 RF: 4 polyethylene glycol 3350 [Miralax] 17 gram/dose powder 17 g PO DAILY PRN (Reason: constipation) Qty: 238 RF: 0 acetaminophen 325 mg capsule 325 mg PO QID PRN (Reason: fever or pain) Qty: 30 RF: 0 melatonin 10 mg tablet extended release 10 mg PO .nightly Qty: 5 RF: 0 metoprolol succinate 50 mg tablet extended release 24 hr 50 mg PO DAILY Qty: 14 RF: 0 ciprofloxacin-dexamethasone [Ciprodex] 0.3-0.1 % drops,suspension 4 drp otic (ears) BID 7 Days RF: 0 alprazolam 0.5 mg Tablet 0.5 mg PO TID PRN (Reason: Anxiety) RF: 0 hydroxyzine HCl 50 mg Tablet 50 mg PO TID PRN (Reason: Anxiety) RF: 0 mirtazapine 45 mg Tablet 45 mg PO BEDTIME RF: 0 multivitamin Capsule 1 cap PO DAILY RF: 0 sertraline 50 mg Tablet 50 mg PO BEDTIME RF: 0 aripiprazole 2 mg Tablet 2 mg PO BEDTIME RF: 0 cholecalciferol (vitamin D3) 25 mcg (1,000 unit) Tablet 25 mcg PO BID RF: 0 omeprazole 20 mg Tablet,Delayed Release (Dr/Ec) 20 mg PO DAILY RF: 0 linaclotide 145 mcg Capsule 145 mcg PO DAILY RF: 0 diphenhydramine HCl [Benadryl] 25 mg capsule 25 mg PO BEDTIME Qty: 7 RF: 0 cefdinir 300 mg capsule 300 mg PO BID 10 Days Qty: 20 RF: 0 ondansetron HCl [Zofran] 4 mg tablet 4 mg PO Q8H PRN (Reason: nausea and vomiting) Qty: 14 RF: 0 Calmoseptine 0.44-20.6 % ointment 1 appl topical QID PRN (Reason: skin irritation) Qty: 113 RF: 0 magnesium citrate Solution 150 ml PO DAILY PRN (Reason: constipation) Qty: 296 RF: 0 hydrocortisone acetate [Anucort-HC] 25 mg suppository 25 mg NC BID Qty: 12 RF: 3
[2021-09-01 11:16] VITALS: BP 141/79; PULSE 78; RESP 20; O2SAT 100
== END 2021-09-01 11:18 | disposition home or self-care (01) ==
PROVIDERS: Emergency Provider Emergency Medicine; PCP Internal Medicine Geriatric Medicine
DX: H66.005 Acute suppurative otitis media without spontaneous rupture of ear drum, recurrent, left ear (principal); R42 Dizziness and giddiness; Z79.899 Other long term (current) drug therapy
CPT/HCPCS: 99283; 99284

== ENCOUNTER 2021-09-02 07:28 | Emergency (ER) | payer MEDICARE, MEDICAID, SELFPAY ==
[2021-09-02 07:31] VITALS: BP 160/74; PULSE 84; O2SAT 100
[2021-09-02 07:38] VITALS: BP 152/79; PULSE 80; RESP 16; TEMP 37.3; O2SAT 99; BMI 24.3
--- NOTE | 2021-09-02 07:38 | ED.ANXIETY ---
HPI - Anxiety General Chief Complaint: Headache Stated Complaint: Ear infection Time Seen by Provider: 09/02/21 07:33 Source: patient Mode of arrival: EMS Limitations: no limitations History of Present Illness HPI narrative: This is a 75 years old of female well known to this emergency department with frequent visits presented to the emergency department by ambulance complaining of dizziness and requesting a CT scan of the head. She has history of chronic dizziness and recurrent otitis, she was seen yesterday as well she was diagnosed with left otitis media started on cephalosporin a she was given meclizine for the dizziness. She denies any fever, vomiting, ataxia. She appear anxious MD complaint: anxiety Onset (ago): hour(s) (2) Severity: mild Quality: constant Place: home History of similar episodes: Yes Provoking factors: none known Relieving factors: nothing Associated symptoms: denies other symptoms Related Data Home Medications Medication Instructions Recorded Confirmed alprazolam 0.5 mg tablet 0.5 mg PO TID PRN 08/09/20 08/01/21 aripiprazole 2 mg tablet 2 mg PO BEDTIME 08/09/20 08/01/21 cholecalciferol (vitamin D3) 25 25 mcg PO BID 08/09/20 08/01/21 mcg (1,000 unit) tablet hydroxyzine HCl 50 mg tablet 50 mg PO TID PRN 08/09/20 08/01/21 linaclotide 145 mcg capsule 145 mcg PO DAILY 08/09/20 08/01/21 mirtazapine 45 mg tablet 45 mg PO BEDTIME 08/09/20 08/01/21 multivitamin 1 cap PO DAILY 08/09/20 08/01/21 omeprazole 20 mg tablet,delayed 20 mg PO DAILY 08/09/20 08/01/21 release sertraline 50 mg tablet 50 mg PO BEDTIME 08/09/20 08/01/21 Previous Rx's Medication Instructions Recorded escitalopram oxalate 10 mg tablet 10 mg PO DAILY #30 tab 09/06/20 acetaminophen 325 mg capsule 325 mg PO QID PRN #30 cap 09/16/20 aspirin 81 mg tablet,delayed 81 mg PO BEDTIME #90 tab 09/28/20 release metoprolol succinate 50 mg 50 mg PO DAILY #90 tab 09/28/20 tablet,extended release 24 hr menthol 0.44 %-zinc oxide 20.6 % 1 appl TOPICAL QID PRN #113 g 12/13/20 topical ointment (Calmoseptine) magnesium citrate 150 ml PO DAILY PRN #296 ml 12/14/20 diphenhydramine HCl 25 mg capsule 25 mg PO BEDTIME #7 cap 12/25/20 (Benadryl) melatonin 10 mg tablet,extended 10 mg PO .nightly #5 tab 01/07/21 release cefdinir 300 mg capsule 300 mg PO BID 10 Days #20 cap 04/14/21 ondansetron HCl 4 mg tablet 4 mg PO Q8H PRN #14 tab 04/14/21 (Zofran) metoprolol succinate 50 mg 50 mg PO DAILY #14 tab 05/22/21 tablet,extended release 24 hr ciprofloxacin 0.3 %-dexamethasone 4 drp OTIC (EARS) BID 7 Days ml 05/26/21 0.1 % ear drops,suspension (Ciprodex) lisinopril 40 mg tablet 40 mg PO QPM #90 tab 05/31/21 polyethylene glycol 3350 17 17 g PO DAILY PRN #238 g 07/31/21 gram/dose oral powder (Miralax) hydrocortisone acetate 25 mg 25 mg ND BID #12 ea 08/01/21 rectal suppository (Anucort-HC) cefuroxime axetil 500 mg tablet 500 mg PO BID 7 Days #14 tab 09/01/21 meclizine 25 mg tablet 25 mg PO TID PRN #10 tab 09/01/21 Allergies Allergy/AdvReac Type Severity Reaction Status Date / Time penicillin G [Penicillin G] Allergy Severe ITCHY/RASH Verified 08/01/21 11:50 Sulfa (Sulfonamide Allergy Severe ITCHY,RASH, Verified 08/01/21 11:50 Antibiotics) rash [Sulfa (Sulfonamides)] trimethoprim [From Bactrim] Allergy Severe HIVES Verified 08/01/21 11:50 penicillin V Allergy Unknown rash Verified 08/01/21 11:50 sulfacetamide Allergy Unknown unknown Verified 08/01/21 11:50 [From Sulfacet-R] sulfur [From Sulfacet-R] Allergy Unknown unknown Verified 08/01/21 11:50 Review of Systems Review of Systems: Yes all other systems are reviewed and are negative Constitutional: Constitutional: Denies chills, Denies fever(s), Denies frequent falls and Denies headache(s) Eyes: Eyes: Denies blurry vision, Denies change in vision and Denies loss of vision ENT: Denies headache(s), Denies neck pain and Denies disequilibrium Cardiovascular: Cardiovascular: Denies chest pain Respiratory: Respiratory: Reports no additional respiratory complaints Gastrointestinal: Gastrointestinal: Denies vomiting Musculoskeletal: Musculoskeletal: Denies neck pain Neurologic: Denies confusion, Denies frequent falls, Denies headache(s), Denies lack of coordination, Denies focal weakness, Denies loss of vision and Denies disequilibrium Psychiatric: Psychiatric: Reports anxiety and Denies confusion PMFSH Past Medical History Attestation statement: The following information was validated with the patient. Medical History Anxiety Arthritis Bleeding hemorrhoids Chronic constipation Dementia Essential hypertension High blood pressure PAC (premature atrial contraction) PVC (premature ventricular contraction) SVT (supraventricular tachycardia) Vertigo Surgical History No pertinent past surgical history Social History Social History Alcohol intake: never Patient Tobacco Use Status: Never used Tobacco Advance Directives: No Advance Directives Information Provided: No Physical Exam Vital Signs: Vital Signs: Last Vital Signs Temp 99.1 F 09/02/21 07:38 Pulse 80 09/02/21 07:38 Resp 16 09/02/21 07:38 BP 152/79 H 09/02/21 07:38 Pulse Ox 99 09/02/21 07:38 Body Mass Index 24.3 Const: Other: She looks well she is no toxic-appearing General: cooperative, comfortable, no acute distress, well developed, alert, awake and anxious; No acute distress or confusion Nutritional Appearance: well nourished Orientation/consciousness: patient oriented x3 and No confusion HENMT: Head: Yes normal to inspection Ears: hearing grossly normal bilaterally, external ears normal and TM abnormal (Mild redness in the right TM) Face and sinus: Yes normal facial exam Mouth: Normal oral and palatal mucosa present Throat: Yes posterior oropharynx normal Eyes: Other: No nystagmus noted General: appearance normal, both eyes and all related structures Conjunctivae: conjunctivae normal Sclerae: sclerae normal EOM: EOMs intact bilaterally Neck: Neck: Yes normal visual inspection and Yes full ROM Thyroid: Thyroid normal Lymphatic: no lymphadenopathy noted Chest: Chest palpation & inspection: normal inspection of the chest Resp: Effort & Inspection: normal respiratory effort Auscultation: clear to auscultation bilaterally Cardio: Jugular venous distension: no JVD Rate: regular rate Rhythm: regular rhythm GI: Inspection: Yes normal to inspection Palpation (GI): Soft to palpation, nontender and no guarding Skin: General skin exam: no rashes or lesions noted, elasticity normal and turgor normal Rashes: no rashes Neuro: Other: A neuro exam was performed the patient does not data cranial nerve, there is no nystagmus, cerebellar tests are within normal limit ([id number] and normal gait is stable, no ataxia) strength is symmetrical there is no deficit in sensation, there is no skew deviation.Hints exam is normal General: patient oriented x3 and No confusion Psych: Affect: Anxious affect present Attitude: cooperative MDM - Anxiety Medical Records Medical records narrative: Patient has a normal Hints exam no skew deviation, no bidirectional or vertical nystagmus, therefore I do not think patient needs any imaging Discharge Plan Discharge Clinical Impression: Generalized anxiety disorder with panic attacks Patient Disposition: Home, Self-Care Instructions: Anxiety (ED) Prescriptions: No Action escitalopram oxalate 10 mg tablet 10 mg PO DAILY Qty: 30 RF: 1 metoprolol succinate 50 mg tablet extended release 24 hr 50 mg PO DAILY Qty: 90 RF: 2 aspirin 81 mg tablet,delayed release (DR/EC) 81 mg PO BEDTIME Qty: 90 RF: 2 lisinopril 40 mg tablet 40 mg PO QPM Qty: 90 RF: 4 polyethylene glycol 3350 [Miralax] 17 gram/dose powder 17 g PO DAILY PRN (Reason: constipation) Qty: 238 RF: 0 acetaminophen 325 mg capsule 325 mg PO QID PRN (Reason: fever or pain) Qty: 30 RF: 0 melatonin 10 mg tablet extended release 10 mg PO .nightly Qty: 5 RF: 0 metoprolol succinate 50 mg tablet extended release 24 hr 50 mg PO DAILY Qty: 14 RF: 0 ciprofloxacin-dexamethasone [Ciprodex] 0.3-0.1 % drops,suspension 4 drp otic (ears) BID 7 Days RF: 0 alprazolam 0.5 mg Tablet 0.5 mg PO TID PRN (Reason: Anxiety) RF: 0 hydroxyzine HCl 50 mg Tablet 50 mg PO TID PRN (Reason: Anxiety) RF: 0 mirtazapine 45 mg Tablet 45 mg PO BEDTIME RF: 0 multivitamin Capsule 1 cap PO DAILY RF: 0 sertraline 50 mg Tablet 50 mg PO BEDTIME RF: 0 aripiprazole 2 mg Tablet 2 mg PO BEDTIME RF: 0 cholecalciferol (vitamin D3) 25 mcg (1,000 unit) Tablet 25 mcg PO BID RF: 0 omeprazole 20 mg Tablet,Delayed Release (Dr/Ec) 20 mg PO DAILY RF: 0 linaclotide 145 mcg Capsule 145 mcg PO DAILY RF: 0 diphenhydramine HCl [Benadryl] 25 mg capsule 25 mg PO BEDTIME Qty: 7 RF: 0 cefdinir 300 mg capsule 300 mg PO BID 10 Days Qty: 20 RF: 0 ondansetron HCl [Zofran] 4 mg tablet 4 mg PO Q8H PRN (Reason: nausea and vomiting) Qty: 14 RF: 0 cefuroxime axetil 500 mg tablet 500 mg PO BID 7 Days Qty: 14 RF: 0 meclizine 25 mg tablet 25 mg PO TID PRN (Reason: dizziness) Qty: 10 RF: 0 Calmoseptine 0.44-20.6 % ointment 1 appl topical QID PRN (Reason: skin irritation) Qty: 113 RF: 0 magnesium citrate Solution 150 ml PO DAILY PRN (Reason: constipation) Qty: 296 RF: 0 hydrocortisone acetate [Anucort-HC] 25 mg suppository 25 mg ND BID Qty: 12 RF: 3 Interventions: ED Discharge Assessment Last Done: 09/02/21 08:11 Discharge Date/Time: 09/02/21 08:11
[2021-09-02] MEDS: ALPRAZolam 0.5 MG TABLET PO (07:44)
== END 2021-09-02 08:11 | disposition home or self-care (01) ==
PROVIDERS: Emergency Provider Emergency Medicine
DX: F43.0 Acute stress reaction (principal); R42 Dizziness and giddiness; Z79.899 Other long term (current) drug therapy
CPT/HCPCS: 99283

== ENCOUNTER 2021-09-10 06:06 | Emergency (ER) | payer MEDICARE, MEDICAID, SELFPAY ==
[2021-09-10 06:16] VITALS: BP 153/69; BP 160/88; PULSE 85; PULSE 90; RESP 18; TEMP 37.2; O2SAT 98; O2SAT 99; BMI 24.3
--- NOTE | 2021-09-10 06:50 | ED.ANXIETY ---
HPI - Anxiety General Chief Complaint: Anxiety Stated Complaint: anxiety Time Seen by Provider: 09/10/21 06:15 Source: patient Mode of arrival: EMS Limitations: no limitations History of Present Illness HPI narrative: 75-year-old female who presents emergency department for evaluation of anxiety. The patient states that she is moving to [place] today to live with her daughter. She states she woke up this morning and felt very anxious. She states that she gets anxiety often. She takes alprazolam but states that she ran out of this medicine 4 days ago. She denied fever, chills, chest pain, shortness of breath, nausea, vomiting or abdominal pain. The patient is well-known to the emergency department and is seen here frequently for anxiety and multiple other complaints. Patient states that she has had her COVID-19 vaccinations as well as her 3rd booster shot. Related Data Home Medications Medication Instructions Recorded Confirmed alprazolam 0.5 mg tablet 0.5 mg PO TID PRN 08/09/20 08/01/21 aripiprazole 2 mg tablet 2 mg PO BEDTIME 08/09/20 08/01/21 cholecalciferol (vitamin D3) 25 25 mcg PO BID 08/09/20 08/01/21 mcg (1,000 unit) tablet hydroxyzine HCl 50 mg tablet 50 mg PO TID PRN 08/09/20 08/01/21 linaclotide 145 mcg capsule 145 mcg PO DAILY 08/09/20 08/01/21 mirtazapine 45 mg tablet 45 mg PO BEDTIME 08/09/20 08/01/21 multivitamin 1 cap PO DAILY 08/09/20 08/01/21 omeprazole 20 mg tablet,delayed 20 mg PO DAILY 08/09/20 08/01/21 release sertraline 50 mg tablet 50 mg PO BEDTIME 08/09/20 08/01/21 Previous Rx's Medication Instructions Recorded escitalopram oxalate 10 mg tablet 10 mg PO DAILY #30 tab 09/06/20 acetaminophen 325 mg capsule 325 mg PO QID PRN #30 cap 09/16/20 aspirin 81 mg tablet,delayed 81 mg PO BEDTIME #90 tab 09/28/20 release metoprolol succinate 50 mg 50 mg PO DAILY #90 tab 09/28/20 tablet,extended release 24 hr menthol 0.44 %-zinc oxide 20.6 % 1 appl TOPICAL QID PRN #113 g 12/13/20 topical ointment (Calmoseptine) magnesium citrate 150 ml PO DAILY PRN #296 ml 12/14/20 diphenhydramine HCl 25 mg capsule 25 mg PO BEDTIME #7 cap 12/25/20 (Benadryl) melatonin 10 mg tablet,extended 10 mg PO .nightly #5 tab 01/07/21 release cefdinir 300 mg capsule 300 mg PO BID 10 Days #20 cap 04/14/21 ondansetron HCl 4 mg tablet 4 mg PO Q8H PRN #14 tab 04/14/21 (Zofran) metoprolol succinate 50 mg 50 mg PO DAILY #14 tab 05/22/21 tablet,extended release 24 hr ciprofloxacin 0.3 %-dexamethasone 4 drp OTIC (EARS) BID 7 Days ml 05/26/21 0.1 % ear drops,suspension (Ciprodex) lisinopril 40 mg tablet 40 mg PO QPM #90 tab 05/31/21 polyethylene glycol 3350 17 17 g PO DAILY PRN #238 g 07/31/21 gram/dose oral powder (Miralax) hydrocortisone acetate 25 mg 25 mg [place] BID #12 ea 08/01/21 rectal suppository (Anucort-HC) cefuroxime axetil 500 mg tablet 500 mg PO BID 7 Days #14 tab 09/01/21 meclizine 25 mg tablet 25 mg PO TID PRN #10 tab 09/01/21 Allergies Allergy/AdvReac Type Severity Reaction Status Date / Time penicillin G [Penicillin G] Allergy Severe ITCHY/RASH Verified 08/01/21 11:50 Sulfa (Sulfonamide Allergy Severe ITCHY,RASH, Verified 08/01/21 11:50 Antibiotics) rash [Sulfa (Sulfonamides)] trimethoprim [From Bactrim] Allergy Severe HIVES Verified 08/01/21 11:50 penicillin V Allergy Unknown rash Verified 08/01/21 11:50 sulfacetamide Allergy Unknown unknown Verified 08/01/21 11:50 [From Sulfacet-R] sulfur [From Sulfacet-R] Allergy Unknown unknown Verified 08/01/21 11:50 Review of Systems Review of Systems: Yes all other systems are reviewed and are negative PMF Past Medical History [facility] Narrative: Social history: She denies tobacco, alcohol and drug use. Medical History Anxiety Arthritis Bleeding hemorrhoids Chronic constipation Dementia Essential hypertension High blood pressure PAC (premature atrial contraction) PVC (premature ventricular contraction) SVT (supraventricular tachycardia) Vertigo Surgical History No pertinent past surgical history Social History Social History Alcohol intake: never Patient Tobacco Use Status: Never used Tobacco Advance Directives: No Physical Exam Vital Signs: Vital Signs: Last Vital Signs Temp 98.9 F 09/10/21 06:16 Pulse 85 09/10/21 06:16 Resp 18 09/10/21 06:16 BP 153/69 H 09/10/21 06:16 Pulse Ox 99 09/10/21 06:16 Body Mass Index 24.3 Const: General: cooperative and no acute distress Orientation/consciousness: oriented to person and oriented to place Limitations: no limitations HENMT: Head: Yes normal to inspection, Yes normocephalic and Yes atraumatic Ears: external ears normal General nose exam: Normal external nose present Face and sinus: Yes normal facial exam Mouth: Normal oral and palatal mucosa present Throat: Yes posterior oropharynx normal Eyes: General: appearance normal, both eyes and all related structures Pupils: Equal, round and reactive pupils present Neck: Neck: Yes normal visual inspection, Yes no lymphadenopathy, Yes trachea midline and Yes supple Chest: Chest palpation & inspection: normal inspection of the chest and normal palpation of entire chest wall Resp: Effort & Inspection: normal respiratory effort and able to speak in complete sentences Auscultation: clear to auscultation bilaterally Cardio: Rate: regular rate Rhythm: regular rhythm Heart sounds: S1 normal heart sound present, S2 normal heart sound present and no murmurs GI: Inspection: Yes normal to inspection Palpation (GI): Soft to palpation, nontender and no guarding Auscultation: normal bowel sounds : General: Yes no CVA tenderness Back/Spine/Pelvis: Back: no CVA tenderness Skin: General skin exam: no rashes or lesions noted Neuro: General: oriented to person and oriented to place Cranial nerves: Yes CN's II-XII intact bilaterally and Yes Equal, round and reactive pupils present Cognition (Neuro): normal cognition Motor exam (neuro): 5/5 motor strength present throughout Extrem: General: Yes normal to inspection Psych: Appearance: grossly normal Speech and movement: Normal speech and movement present Affect: Anxious affect present Attitude: cooperative Thought process: Normal thought process present Thought content: Normal thought content present Course Course Course Narrative: 75-year-old female with a history of anxiety who presents emergency department for evaluation of a panic attack. Patient does take alprazolam but states she has ran out of his medication 4 days prior. 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 Rest her vital signs were normal. The patient's exam is consistent with her anxiety disorder. She was given Xanax 0.5 mg orally. 0717: The patient is feeling better after receiving Xanax. The patient was discharged home. She was given verbal and printed instructions these reviewed with her prior to her discharge. Discharge Plan Discharge Clinical Impression: Anxiety attack Patient Disposition: Home, Self-Care Instructions: Anxiety (ED) Additional Instructions: You should discuss further treatment of your anxiety with your PCP. Follow-up with your doctor in 2 days. Please return to the emergency department if your symptoms get worse or if you develop any symptoms that are concerning to you. Prescriptions: No Action escitalopram oxalate 10 mg tablet 10 mg PO DAILY Qty: 30 RF: 1 metoprolol succinate 50 mg tablet extended release 24 hr 50 mg PO DAILY Qty: 90 RF: 2 aspirin 81 mg tablet,delayed release (DR/EC) 81 mg PO BEDTIME Qty: 90 RF: 2 lisinopril 40 mg tablet 40 mg PO QPM Qty: 90 RF: 4 polyethylene glycol 3350 [Miralax] 17 gram/dose powder 17 g PO DAILY PRN (Reason: constipation) Qty: 238 RF: 0 acetaminophen 325 mg capsule 325 mg PO QID PRN (Reason: fever or pain) Qty: 30 RF: 0 melatonin 10 mg tablet extended release 10 mg PO .nightly Qty: 5 RF: 0 metoprolol succinate 50 mg tablet extended release 24 hr 50 mg PO DAILY Qty: 14 RF: 0 ciprofloxacin-dexamethasone [Ciprodex] 0.3-0.1 % drops,suspension 4 drp otic (ears) BID 7 Days RF: 0 alprazolam 0.5 mg Tablet 0.5 mg PO TID PRN (Reason: Anxiety) RF: 0 hydroxyzine HCl 50 mg Tablet 50 mg PO TID PRN (Reason: Anxiety) RF: 0 mirtazapine 45 mg Tablet 45 mg PO BEDTIME RF: 0 multivitamin Capsule 1 cap PO DAILY RF: 0 sertraline 50 mg Tablet 50 mg PO BEDTIME RF: 0 aripiprazole 2 mg Tablet 2 mg PO BEDTIME RF: 0 cholecalciferol (vitamin D3) 25 mcg (1,000 unit) Tablet 25 mcg PO BID RF: 0 omeprazole 20 mg Tablet,Delayed Release (Dr/Ec) 20 mg PO DAILY RF: 0 linaclotide 145 mcg Capsule 145 mcg PO DAILY RF: 0 diphenhydramine HCl [Benadryl] 25 mg capsule 25 mg PO BEDTIME Qty: 7 RF: 0 cefdinir 300 mg capsule 300 mg PO BID 10 Days Qty: 20 RF: 0 ondansetron HCl [Zofran] 4 mg tablet 4 mg PO Q8H PRN (Reason: nausea and vomiting) Qty: 14 RF: 0 cefuroxime axetil 500 mg tablet 500 mg PO BID 7 Days Qty: 14 RF: 0 meclizine 25 mg tablet 25 mg PO TID PRN (Reason: dizziness) Qty: 10 RF: 0 Calmoseptine 0.44-20.6 % ointment 1 appl topical QID PRN (Reason: skin irritation) Qty: 113 RF: 0 magnesium citrate Solution 150 ml PO DAILY PRN (Reason: constipation) Qty: 296 RF: 0 hydrocortisone acetate [Anucort-HC] 25 mg suppository 25 mg MN BID Qty: 12 RF: 3 Print Language: Welsh
[2021-09-10] MEDS: ALPRAZolam 0.5 MG TABLET PO (07:02)
== END 2021-09-10 07:28 | disposition home or self-care (01) ==
PROVIDERS: Emergency Provider Emergency Medicine Emergency Medical Services; PCP Internal Medicine Geriatric Medicine
DX: F41.9 Anxiety disorder, unspecified (principal); I10 Essential (primary) hypertension; F03.90 Unspecified dementia, unspecified severity, without behavioral disturbance, psychotic disturbance, mood disturbance, and anxiety
CPT/HCPCS: 99283

== ENCOUNTER → 2021-10-29 09:25 | Outpatient (BNVA) | payer MEDICARE, MEDICAID, SELFPAY | PROVIDERS: PCP Internal Medicine Geriatric Medicine; Referring Provider Internal Medicine Geriatric Medicine; Visit Provider Surgery | DX: K59.09 Other constipation (principal) | CPT/HCPCS: 99212 ==

== ENCOUNTER → 2021-11-21 15:17 | Outpatient (BNVA) | payer OTHER, SELFPAY | PROVIDERS: PCP Internal Medicine Geriatric Medicine; Referring Provider Internal Medicine Geriatric Medicine; Visit Provider Surgery | DX: K64.9 Unspecified hemorrhoids (principal); K59.00 Constipation, unspecified | CPT/HCPCS: 46600; 99212 ==

== ENCOUNTER 2021-11-27 01:30 | Emergency (ER) | payer OTHER, SELFPAY ==
[2021-11-27 01:50] VITALS: BP 188/89; BP 188/90; PULSE 85; PULSE 86; RESP 20; TEMP 36.8; O2SAT 100; O2SAT 95; BMI 53.6
[2021-11-27 03:51] VITALS: BP 177/80; PULSE 85; RESP 18; O2SAT 96
--- NOTE | 2021-11-27 04:35 | ED.GENADULT ---
HPI - General Adult General Chief complaint: General Medical Stated complaint: hypertension Time Seen by Provider: 11/27/21 04:33 History of Present Illness HPI narrative: Patient is an 6-year-old female with a history of hypertension anxiety. Patient noted her blood pressure to be elevated. Also feel very anxious. No fever no chills no chest pain or shortness of breath no diaphoresis. Symptoms very similar to previous. Related Data Home Medications Medication Instructions Recorded Confirmed alprazolam 0.5 mg tablet 0.5 mg PO TID PRN 08/09/20 11/21/21 aripiprazole 2 mg tablet 2 mg PO BEDTIME 08/09/20 11/21/21 cholecalciferol (vitamin D3) 25 25 mcg PO BID 08/09/20 11/21/21 mcg (1,000 unit) tablet hydroxyzine HCl 50 mg tablet 50 mg PO TID PRN 08/09/20 11/21/21 linaclotide 145 mcg capsule 145 mcg PO DAILY 08/09/20 11/21/21 mirtazapine 45 mg tablet 45 mg PO BEDTIME 08/09/20 11/21/21 multivitamin 1 cap PO DAILY 08/09/20 11/21/21 omeprazole 20 mg tablet,delayed 20 mg PO DAILY 08/09/20 11/21/21 release sertraline 50 mg tablet 50 mg PO BEDTIME 08/09/20 11/21/21 Previous Rx's Medication Instructions Recorded escitalopram oxalate 10 mg tablet 10 mg PO DAILY #30 tab 09/06/20 acetaminophen 325 mg capsule 325 mg PO QID PRN #30 cap 09/16/20 aspirin 81 mg tablet,delayed 81 mg PO BEDTIME #90 tab 09/28/20 release metoprolol succinate 50 mg 50 mg PO DAILY #90 tab 09/28/20 tablet,extended release 24 hr menthol 0.44 %-zinc oxide 20.6 % 1 appl TOPICAL QID PRN #113 g 12/13/20 topical ointment (Calmoseptine) magnesium citrate 150 ml PO DAILY PRN #296 ml 12/14/20 diphenhydramine HCl 25 mg capsule 25 mg PO BEDTIME #7 cap 12/25/20 (Benadryl) melatonin 10 mg tablet,extended 10 mg PO .nightly #5 tab 01/07/21 release cefdinir 300 mg capsule 300 mg PO BID 10 Days #20 cap 04/14/21 ondansetron HCl 4 mg tablet 4 mg PO Q8H PRN #14 tab 04/14/21 (Zofran) metoprolol succinate 50 mg 50 mg PO DAILY #14 tab 05/22/21 tablet,extended release 24 hr ciprofloxacin 0.3 %-dexamethasone 4 drp OTIC (EARS) BID 7 Days ml 05/26/21 0.1 % ear drops,suspension (Ciprodex) lisinopril 40 mg tablet 40 mg PO QPM #90 tab 05/31/21 polyethylene glycol 3350 17 17 g PO DAILY PRN #238 g 07/31/21 gram/dose oral powder (Miralax) hydrocortisone acetate 25 mg 25 mg [place] BID #12 ea 08/01/21 rectal suppository (Anucort-HC) cefuroxime axetil 500 mg tablet 500 mg PO BID 7 Days #14 tab 09/01/21 meclizine 25 mg tablet 25 mg PO TID PRN #10 tab 09/01/21 zolpidem 5 mg tablet (Ambien) 5 mg PO BEDTIME PRN #2 tab 10/29/21 zolpidem 5 mg tablet (Ambien) 5 mg PO BEDTIME PRN #2 tab 10/29/21 Allergies Allergy/AdvReac Type Severity Reaction Status Date / Time penicillin G [Penicillin G] Allergy Severe ITCHY/RASH Verified 11/21/21 15:38 Sulfa (Sulfonamide Allergy Severe ITCHY,RASH, Verified 11/21/21 15:38 Antibiotics) rash [Sulfa (Sulfonamides)] trimethoprim [From Bactrim] Allergy Severe HIVES Verified 11/21/21 15:38 penicillin V Allergy Unknown rash Verified 11/21/21 15:38 sulfacetamide Allergy Unknown unknown Verified 11/21/21 15:38 [From Sulfacet-R] sulfur [From Sulfacet-R] Allergy Unknown unknown Verified 11/21/21 15:38 Review of Systems Review of Systems: No cough no congestion or upper respiratory symptoms all system reviewed otherwise negative PMFSH Past Medical History Attestation statement: The following information was validated with the patient. Medical History Anxiety Arthritis Bleeding hemorrhoids Chronic constipation Dementia Essential hypertension High blood pressure PAC (premature atrial contraction) PVC (premature ventricular contraction) SVT (supraventricular tachycardia) Vertigo Surgical History No pertinent past surgical history Social History Social History Alcohol intake: never Patient Tobacco Use Status: Never used Tobacco Advance Directives: No Physical Exam Vital Signs: Vital Signs: Last Vital Signs Temp 98.2 F 11/27/21 01:50 Pulse 85 11/27/21 03:51 Resp 18 11/27/21 03:51 BP 177/80 H 11/27/21 03:51 Pulse Ox 96 11/27/21 03:51 BMI result Body Mass Index 53.6 Appearance: Alert. Oriented X3. No acute distress. Eyes: Pupils equal, round and reactive to light. ENT: Pharynx normal. Neck: Normal inspection. Neck supple. No lymph nodes noted. No crepitus CVS: Normal heart rate and rhythm. Pulses normal. Normal S1 and S2 Respiratory: No respiratory distress. Breath sounds normal. No Wheezing. No rales Abdomen: Soft and nontender. No rigidity. No distention. good BS x4 Skin: Skin warm and dry. Normal skin color. Normal skin turgor. Extremities: No lower extremity edema. Neurovascular intact to all extremities. No Lacerations. No Rash Neuro: Oriented X 3. No motor deficit. No sensory deficit. Moving all extermities. No slurred speech Medical Decision Making MDM Narrative Medical decision making narrative: Patient blood pressure is 170/80. Did not take her blood pressure medication. Patient stated the prescription is ready for her at [facility] at 09:00 this morning. Will give patient 1 dose of her medication patient also has history of anxiety will give her usual dose of alprazolam. Patient in stable condition with discharge home. Discharge Plan Discharge Clinical Impression: Generalized anxiety disorder with panic attacks, Hypertension Patient Disposition: Home, Self-Care Instructions: Hypertension (ED), Anxiety (ED) Prescriptions: No Action escitalopram oxalate 10 mg tablet 10 mg PO DAILY Qty: 30 RF: 1 metoprolol succinate 50 mg tablet extended release 24 hr 50 mg PO DAILY Qty: 90 RF: 2 aspirin 81 mg tablet,delayed release (DR/EC) 81 mg PO BEDTIME Qty: 90 RF: 2 lisinopril 40 mg tablet 40 mg PO QPM Qty: 90 RF: 4 polyethylene glycol 3350 [Miralax] 17 gram/dose powder 17 g PO DAILY PRN (Reason: constipation) Qty: 238 RF: 0 acetaminophen 325 mg capsule 325 mg PO QID PRN (Reason: fever or pain) Qty: 30 RF: 0 melatonin 10 mg tablet extended release 10 mg PO .nightly Qty: 5 RF: 0 metoprolol succinate 50 mg tablet extended release 24 hr 50 mg PO DAILY Qty: 14 RF: 0 ciprofloxacin-dexamethasone [Ciprodex] 0.3-0.1 % drops,suspension 4 drp otic (ears) BID 7 Days RF: 0 alprazolam 0.5 mg Tablet 0.5 mg PO TID PRN (Reason: Anxiety) RF: 0 hydroxyzine HCl 50 mg Tablet 50 mg PO TID PRN (Reason: Anxiety) RF: 0 mirtazapine 45 mg Tablet 45 mg PO BEDTIME RF: 0 multivitamin Capsule 1 cap PO DAILY RF: 0 sertraline 50 mg Tablet 50 mg PO BEDTIME RF: 0 aripiprazole 2 mg Tablet 2 mg PO BEDTIME RF: 0 cholecalciferol (vitamin D3) 25 mcg (1,000 unit) Tablet 25 mcg PO BID RF: 0 omeprazole 20 mg Tablet,Delayed Release (Dr/Ec) 20 mg PO DAILY RF: 0 linaclotide 145 mcg Capsule 145 mcg PO DAILY RF: 0 diphenhydramine HCl [Benadryl] 25 mg capsule 25 mg PO BEDTIME Qty: 7 RF: 0 cefdinir 300 mg capsule 300 mg PO BID 10 Days Qty: 20 RF: 0 ondansetron HCl [Zofran] 4 mg tablet 4 mg PO Q8H PRN (Reason: nausea and vomiting) Qty: 14 RF: 0 cefuroxime axetil 500 mg tablet 500 mg PO BID 7 Days Qty: 14 RF: 0 meclizine 25 mg tablet 25 mg PO TID PRN (Reason: dizziness) Qty: 10 RF: 0 Calmoseptine 0.44-20.6 % ointment 1 appl topical QID PRN (Reason: skin irritation) Qty: 113 RF: 0 magnesium citrate Solution 150 ml PO DAILY PRN (Reason: constipation) Qty: 296 RF: 0 hydrocortisone acetate [Anucort-HC] 25 mg suppository 25 mg [place] BID Qty: 12 RF: 3 zolpidem [Ambien] 5 mg tablet 5 mg PO BEDTIME PRN (Reason: sleep) Qty: 2 RF: 0 zolpidem [Ambien] 5 mg tablet 5 mg PO BEDTIME PRN (Reason: sleep) Qty: 2 RF: 0 Referrals: Nitin Echevarria MD [Primary Care Provider] - 2 days Print Language: Albanian
[2021-11-27 05:00] VITALS: BP 168/93; PULSE 77; RESP 16; TEMP 37.1; O2SAT 96
[2021-11-27] MEDS: ALPRAZolam 0.5 MG TABLET PO (05:00)
[2021-11-27] MEDS: Metoprolol Succinate ER 50 MG TAB.ER.24H PO (05:00)
--- NOTE | 2021-11-27 05:02 | PC.NURSE ---
pt medicated per jan. Discharge reviewed and pt verbalized understandng.
== END 2021-11-27 05:14 | disposition home or self-care (01) ==
PROVIDERS: Emergency Provider Emergency Medicine Emergency Medical Services; PCP Internal Medicine Geriatric Medicine
DX: F41.1 Generalized anxiety disorder (principal); F41.0 Panic disorder [episodic paroxysmal anxiety]; I10 Essential (primary) hypertension; Z79.899 Other long term (current) drug therapy; Z79.82 Long term (current) use of aspirin
CPT/HCPCS: 99283; 99284

== ENCOUNTER 2021-12-21 16:13 | Outpatient (REF) | payer MEDICARE, SELFPAY ==
--- NOTE | ~2021-12-21 | XR_ITS ---
EXAMINATION: XR HUMERUS, LEFT XR ELBOW, LEFT XR FOREARM, LEFT CLINICAL INFORMATION: Pain left upper extremity. COMPARISON: None TECHNIQUE: Left humerus is imaged in 3 views. Left elbow is imaged in 3 views. Left forearm is imaged in 2 views. There are total of 8 views. FINDINGS: Humerus: There is no fracture or dislocation or destructive process. Degenerative changes involve the acromioclavicular joint. The acromioclavicular alignment is normal. There is some fine mineralization in the region of the distal superior rotator cuff consistent with calcific tendinosis. This also involves the deltoid insertion, humeral shaft. There is also spurring involving the greater tuberosity and distal humeral epicondyles. Elbow: There is no fracture, dislocation, or destructive process. No elbow capsular effusion. The articular surfaces appear intact. No erosive change. There is spurring from the medial and lateral epicondyles. Forearm: No fracture, dislocation, destructive process. There is slight negative ulnar variance. No periostitis. The pronator quadratus fat pad appears normal. XR/XR elbow LT min 3V IMPRESSION: 1. No fracture, dislocation, destructive process. 2. Degenerative changes acromioclavicular joint. 3. Calcific tendinosis rotator cuff and deltoid insertion. 4. Spurring medial and lateral distal humeral epicondyles.
--- NOTE | ~2021-12-21 | XR_ITS ---
EXAMINATION: XR HUMERUS, LEFT XR ELBOW, LEFT XR FOREARM, LEFT CLINICAL INFORMATION: Pain left upper extremity. COMPARISON: None TECHNIQUE: Left humerus is imaged in 3 views. Left elbow is imaged in 3 views. Left forearm is imaged in 2 views. There are total of 8 views. FINDINGS: Humerus: There is no fracture or dislocation or destructive process. Degenerative changes involve the acromioclavicular joint. The acromioclavicular alignment is normal. There is some fine mineralization in the region of the distal superior rotator cuff consistent with calcific tendinosis. This also involves the deltoid insertion, humeral shaft. There is also spurring involving the greater tuberosity and distal humeral epicondyles. Elbow: There is no fracture, dislocation, or destructive process. No elbow capsular effusion. The articular surfaces appear intact. No erosive change. There is spurring from the medial and lateral epicondyles. Forearm: No fracture, dislocation, destructive process. There is slight negative ulnar variance. No periostitis. The pronator quadratus fat pad appears normal. XR/XR humerus LT IMPRESSION: 1. No fracture, dislocation, destructive process. 2. Degenerative changes acromioclavicular joint. 3. Calcific tendinosis rotator cuff and deltoid insertion. 4. Spurring medial and lateral distal humeral epicondyles.
--- NOTE | ~2021-12-21 | XR_ITS ---
EXAMINATION: XR HUMERUS, LEFT XR ELBOW, LEFT XR FOREARM, LEFT CLINICAL INFORMATION: Pain left upper extremity. COMPARISON: None TECHNIQUE: Left humerus is imaged in 3 views. Left elbow is imaged in 3 views. Left forearm is imaged in 2 views. There are total of 8 views. FINDINGS: Humerus: There is no fracture or dislocation or destructive process. Degenerative changes involve the acromioclavicular joint. The acromioclavicular alignment is normal. There is some fine mineralization in the region of the distal superior rotator cuff consistent with calcific tendinosis. This also involves the deltoid insertion, humeral shaft. There is also spurring involving the greater tuberosity and distal humeral epicondyles. Elbow: There is no fracture, dislocation, or destructive process. No elbow capsular effusion. The articular surfaces appear intact. No erosive change. There is spurring from the medial and lateral epicondyles. Forearm: No fracture, dislocation, destructive process. There is slight negative ulnar variance. No periostitis. The pronator quadratus fat pad appears normal. XR/XR forearm LT 2V IMPRESSION: 1. No fracture, dislocation, destructive process. 2. Degenerative changes acromioclavicular joint. 3. Calcific tendinosis rotator cuff and deltoid insertion. 4. Spurring medial and lateral distal humeral epicondyles.
== END 2021-12-21 16:14 | disposition home or self-care (01) ==
LOC: HO.XRAY 16:13
PROVIDERS: Absent Provider Internal Medicine Geriatric Medicine; PCP Internal Medicine Geriatric Medicine; Visit Provider Registered Nurse
DX: M25.522 Pain in left elbow (principal)
CPT/HCPCS: 73060; 73080; 73090

== ENCOUNTER 2022-01-29 04:09 | Emergency (ER) | payer OTHER, SELFPAY ==
[2022-01-29 04:12] VITALS: BP 170/80; PULSE 83; O2SAT 99
[2022-01-29 04:32] VITALS: BP 161/90; PULSE 76; RESP 20; TEMP 36.6; O2SAT 98; BMI 25.0
[2022-01-29 07:00] VITALS: BP 170/73
== END 2022-01-29 08:24 | disposition left against medical advice (07) ==
PROVIDERS: Emergency Provider Emergency Medicine
DX: I10 Essential (primary) hypertension (principal); F41.9 Anxiety disorder, unspecified
CPT/HCPCS: 99283

== ENCOUNTER → 2022-02-06 12:41 | Outpatient (BNVA) | payer MEDICARE, SELFPAY | PROVIDERS: PCP Internal Medicine Geriatric Medicine; Referring Provider Internal Medicine Geriatric Medicine; Visit Provider Internal Medicine | DX: Z13.89 Encounter for screening for other disorder (principal) ==

== ENCOUNTER 2022-02-11 06:18 | Emergency (ER) | payer OTHER, SELFPAY ==
[2022-02-11 06:26] VITALS: BP 162/80; PULSE 77; RESP 18; TEMP 36.8; O2SAT 99; BMI 26.6
--- NOTE | 2022-02-11 06:31 | ED.HA ---
HPI - Headache General Chief Complaint: Headache Stated Complaint: Headache Time Seen by Provider: 02/11/22 06:31 Source: patient Mode of arrival: ambulatory Limitations: language barrier History of Present Illness HPI Narrative: History obtained by [employer]. Patient states she an ear infection and causing her headache. She has not been taking her anxiety medications. MD elicited complaint: headache Onset (ago): day(s) Onset description: gradually Location: left and frontal Severity: mild Quality & Timing: aching Exacerbating factors: other (stress) Context: other (ear infection) Associated symptoms: none Treatments prior to arrival: none Related Data Home Medications Medication Instructions Recorded Confirmed alprazolam 0.5 mg tablet 0.5 mg PO TID PRN 08/09/20 11/21/21 aripiprazole 2 mg tablet 2 mg PO BEDTIME 08/09/20 11/21/21 cholecalciferol (vitamin D3) 25 25 mcg PO BID 08/09/20 11/21/21 mcg (1,000 unit) tablet hydroxyzine HCl 50 mg tablet 50 mg PO TID PRN 08/09/20 11/21/21 linaclotide 145 mcg capsule 145 mcg PO DAILY 08/09/20 11/21/21 mirtazapine 45 mg tablet 45 mg PO BEDTIME 08/09/20 11/21/21 multivitamin 1 cap PO DAILY 08/09/20 11/21/21 omeprazole 20 mg tablet,delayed 20 mg PO DAILY 08/09/20 11/21/21 release sertraline 50 mg tablet 50 mg PO BEDTIME 08/09/20 11/21/21 Previous Rx's Medication Instructions Recorded escitalopram oxalate 10 mg tablet 10 mg PO DAILY #30 tab 09/06/20 acetaminophen 325 mg capsule 325 mg PO QID PRN #30 cap 09/16/20 aspirin 81 mg tablet,delayed 81 mg PO BEDTIME #90 tab 09/28/20 release metoprolol succinate 50 mg 50 mg PO DAILY #90 tab 09/28/20 tablet,extended release 24 hr menthol 0.44 %-zinc oxide 20.6 % 1 appl TOPICAL QID PRN #113 g 12/13/20 topical ointment (Calmoseptine) magnesium citrate 150 ml PO DAILY PRN #296 ml 12/14/20 diphenhydramine HCl 25 mg capsule 25 mg PO BEDTIME #7 cap 12/25/20 (Benadryl) melatonin 10 mg tablet,extended 10 mg PO .nightly #5 tab 01/07/21 release cefdinir 300 mg capsule 300 mg PO BID 10 Days #20 cap 04/14/21 ondansetron HCl 4 mg tablet 4 mg PO Q8H PRN #14 tab 04/14/21 (Zofran) metoprolol succinate 50 mg 50 mg PO DAILY #14 tab 05/22/21 tablet,extended release 24 hr ciprofloxacin 0.3 %-dexamethasone 4 drp OTIC (EARS) BID 7 Days ml 05/26/21 0.1 % ear drops,suspension (Ciprodex) lisinopril 40 mg tablet 40 mg PO QPM #90 tab 05/31/21 polyethylene glycol 3350 17 17 g PO DAILY PRN #238 g 07/31/21 gram/dose oral powder (Miralax) hydrocortisone acetate 25 mg 25 mg MD BID #12 ea 08/01/21 rectal suppository (Anucort-HC) cefuroxime axetil 500 mg tablet 500 mg PO BID 7 Days #14 tab 09/01/21 meclizine 25 mg tablet 25 mg PO TID PRN #10 tab 09/01/21 zolpidem 5 mg tablet (Ambien) 5 mg PO BEDTIME PRN #2 tab 10/29/21 zolpidem 5 mg tablet (Ambien) 5 mg PO BEDTIME PRN #2 tab 10/29/21 Allergies Allergy/AdvReac Type Severity Reaction Status Date / Time penicillin G [Penicillin G] Allergy Severe ITCHY/RASH Verified 01/29/22 04:31 Sulfa (Sulfonamide Allergy Severe ITCHY,RASH, Verified 01/29/22 04:31 Antibiotics) rash [Sulfa (Sulfonamides)] trimethoprim [From Bactrim] Allergy Severe HIVES Verified 01/29/22 04:31 penicillin V Allergy Unknown rash Verified 01/29/22 04:31 sulfacetamide Allergy Unknown unknown Verified 01/29/22 04:31 [From Sulfacet-R] sulfur [From Sulfacet-R] Allergy Unknown unknown Verified 01/29/22 04:31 Review of Systems Constitutional: Constitutional: Reports no additional constitutional complaints Eyes: Eyes: Reports no additional eye complaints ENT: Denies dizziness Cardiovascular: Cardiovascular: Reports no additional cardiovascular complaints Respiratory: Respiratory: Reports as per HPI Gastrointestinal: Gastrointestinal: Reports no additional gastrointestinal complaints Genitourinary: Genitourinary: Reports no additional female genitourinary complaints Musculoskeletal: Musculoskeletal: Reports no additional musculoskeletal complaints Integumentary/Breasts: Skin/Breast: Denies rash Neurologic: Reports system reviewed and no additional complaints, except as documented, Denies dizziness and Denies Sensory deficit (Neuro) Psychiatric: Psychiatric: Denies anxiety PMFSH Past Medical History Medical History Anxiety Arthritis Bleeding hemorrhoids Chronic constipation Dementia Essential hypertension High blood pressure PAC (premature atrial contraction) PVC (premature ventricular contraction) SVT (supraventricular tachycardia) Vertigo Surgical History No pertinent past surgical history Social History Social History Alcohol intake: never Patient Tobacco Use Status: Never used Tobacco Advance Directives: No Advance Directives Information Provided: Yes Physical Exam Vital Signs: Vital Signs: Last Vital Signs Temp 98.2 F 02/11/22 06:26 Pulse 77 02/11/22 06:26 Resp 18 02/11/22 06:26 BP 162/80 H 02/11/22 06:26 Pulse Ox 99 02/11/22 06:26 BMI result Body Mass Index 26.6 Const: Other: very anxious General: healthy appearing Nutritional Appearance: average body habitus Orientation/consciousness: oriented to person and patient oriented x3 Limitations: no limitations HEENT: Other: the left ear canal with erythema and discharge Head: Yes normal to inspection General nose exam: Normal external nose present Mouth: Normal oral and palatal mucosa present and oropharynx normal Throat: Yes posterior oropharynx normal Eyes: General: appearance normal, both eyes and all related structures Neck: Other: supple Neck: Yes normal visual inspection Chest: Chest palpation & inspection: normal inspection of the chest Resp: Auscultation: clear to auscultation bilaterally Cardio: Jugular venous distension: no JVD Rate: regular rate Rhythm: regular rhythm Heart sounds: S1 normal heart sound present and S2 normal heart sound present GI: Inspection: Yes normal to inspection Palpation (GI): Soft to palpation, nontender and No hepatosplenomegaly present Auscultation: normal bowel sounds : General: Yes no CVA tenderness Back/Spine/Pelvis: Back: no CVA tenderness Skin: General skin exam: no rashes or lesions noted Neuro: General: oriented to person and patient oriented x3 Cranial nerves: Yes CN's II-XII intact bilaterally Motor exam (neuro): 5/5 motor strength present throughout Sensory Exam: No Sensory deficit (Neuro) Extrem: General: Yes normal to inspection Psych: Appearance: grossly normal Course Reevaluation(s) Reevaluation #1: patient left prior to completing treatment Time: 10:11 Discharge Plan Discharge Clinical Impression: Generalized anxiety disorder with panic attacks Patient Disposition: Elopement Prescriptions: No Action escitalopram oxalate 10 mg tablet 10 mg PO DAILY Qty: 30 1RF metoprolol succinate 50 mg tablet extended release 24 hr 50 mg PO DAILY Qty: 90 2RF aspirin 81 mg tablet,delayed release (DR/EC) 81 mg PO BEDTIME Qty: 90 2RF lisinopril 40 mg tablet 40 mg PO QPM Qty: 90 4RF polyethylene glycol 3350 [Miralax] 17 gram/dose powder 17 g PO DAILY PRN (Reason: constipation) Qty: 238 0RF acetaminophen 325 mg capsule 325 mg PO QID PRN (Reason: fever or pain) Qty: 30 0RF melatonin 10 mg tablet extended release 10 mg PO .nightly Qty: 5 0RF metoprolol succinate 50 mg tablet extended release 24 hr 50 mg PO DAILY Qty: 14 0RF ciprofloxacin-dexamethasone [Ciprodex] 0.3-0.1 % drops,suspension 4 drp otic (ears) BID 7 Days 0RF alprazolam 0.5 mg Tablet 0.5 mg PO TID PRN (Reason: Anxiety) 0RF hydroxyzine HCl 50 mg Tablet 50 mg PO TID PRN (Reason: Anxiety) 0RF mirtazapine 45 mg Tablet 45 mg PO BEDTIME 0RF multivitamin Capsule 1 cap PO DAILY 0RF sertraline 50 mg Tablet 50 mg PO BEDTIME 0RF aripiprazole 2 mg Tablet 2 mg PO BEDTIME 0RF cholecalciferol (vitamin D3) 25 mcg (1,000 unit) Tablet 25 mcg PO BID 0RF omeprazole 20 mg Tablet,Delayed Release (Dr/Ec) 20 mg PO DAILY 0RF linaclotide 145 mcg Capsule 145 mcg PO DAILY 0RF diphenhydramine HCl [Benadryl] 25 mg capsule 25 mg PO BEDTIME Qty: 7 0RF cefdinir 300 mg capsule 300 mg PO BID 10 Days Qty: 20 0RF ondansetron HCl [Zofran] 4 mg tablet 4 mg PO Q8H PRN (Reason: nausea and vomiting) Qty: 14 0RF cefuroxime axetil 500 mg tablet 500 mg PO BID 7 Days Qty: 14 0RF meclizine 25 mg tablet 25 mg PO TID PRN (Reason: dizziness) Qty: 10 0RF Calmoseptine 0.44-20.6 % ointment 1 appl topical QID PRN (Reason: skin irritation) Qty: 113 0RF magnesium citrate Solution 150 ml PO DAILY PRN (Reason: constipation) Qty: 296 0RF Rx Instructions: take only when needed for constipation hydrocortisone acetate [Anucort-HC] 25 mg suppository 25 mg MD BID Qty: 12 3RF zolpidem [Ambien] 5 mg tablet 5 mg PO BEDTIME PRN (Reason: sleep) Qty: 2 0RF zolpidem [Ambien] 5 mg tablet 5 mg PO BEDTIME PRN (Reason: sleep) Qty: 2 0RF Interventions: ED Discharge Assessment Last Done: 02/11/22 07:32 Discharge Date/Time: 02/11/22 07:33
[2022-02-11] MEDS: NeoMYCIN/Polymyxin/HC Otic Sol BOTTLE 4 DROP EAR-LEFT (07:01)
[2022-02-11] MEDS: Acetaminophen 325 MG TABLET 975 MG PO (07:02)
[2022-02-11] MEDS: Escitalopram Oxalate 10 MG TABLET PO (07:03)
--- NOTE | 2022-02-11 07:34 | PC.NURSE ---
pt LAMA Dr. Fernandez aware. this telegraphic typewriter mechanic was told by extended day teacher that the pt was not in her room and her clothes were gone. this telegraphic typewriter mechanic told the ed provider.
== END 2022-02-11 07:33 | disposition left against medical advice (07) ==
PROVIDERS: Emergency Provider Emergency Medicine; PCP Internal Medicine Geriatric Medicine
DX: R51.9 Headache, unspecified (principal); F41.1 Generalized anxiety disorder; F41.0 Panic disorder [episodic paroxysmal anxiety]
CPT/HCPCS: 99283

== ENCOUNTER 2022-02-11 19:17 | Emergency (ER) | payer MEDICARE, SELFPAY ==
[2022-02-11 19:55] VITALS: BP 176/92; PULSE 80; O2SAT 98
== END 2022-02-11 22:27 | disposition left against medical advice (07) ==
PROVIDERS: Emergency Provider Emergency Medicine
DX: I10 Essential (primary) hypertension (principal); F41.9 Anxiety disorder, unspecified

== ENCOUNTER 2022-03-29 00:41 | Emergency (ER) | payer OTHER, SELFPAY ==
[2022-03-29] VITALS (7 sets, daily range): BP systolic 150–174; BP diastolic 69–82; PULSE 71–88; RESP 14–18; TEMP 36.5; O2SAT 98–99; BMI 24.5
--- NOTE | 2022-03-29 | ECG_ITS ---
Test Reason : PALPITATIONS Blood Pressure : / mmHG Vent. Rate : 077 BPM Atrial Rate : 077 BPM P-R Int : 172 ms QRS Dur : 110 ms QT Int : 374 ms P-R-T Axes : 041 -26 037 degrees QTc Int : 423 ms Normal sinus rhythm Moderate voltage criteria for LVH, may be normal variant ( R in aVL , Hudson product ) Borderline ECG When compared with ECG of 22-MAY-2021 01:06, No significant change was found Referred By: Generic ED Physician Electronically Signed By:ZANDRA ENNIS
[2022-03-29 01:12] LABS: MANUAL DIFF FLAG NO
[2022-03-29 01:13] LABS: Basophils Percent Auto 0.7 % (0-2); Eosinophils Absolute Auto 0.1 X10*3/uL (0.0-0.4); Eosinophils Percent Auto 1.6 % (0-4); Hematocrit 33.4 % (37.0-47.0); Hemoglobin 10.8 g/dl (12.0-16.0); Imm Gran Abs Auto 0.02 X10*3/uL (0.00-0.03); Imm Gran Pct Auto 0.4 % (0.0-0.4); Lymphocytes Absolute Auto 1.6 X10*3/uL (1.2-4.9); Lymphocytes Percent Auto 28.7 % (20-40); Mean Corpuscular HGB Conc 32.3 g/dl (31.0-35.0); Mean Corpuscular Hemoglobin 27.8 pg (27.0-33.0); Mean Corpuscular Volume 86.1 fL (80.0-98.0); Monocytes Absolute Auto 0.5 X10*3/uL (0.1-1.2); Monocytes Percent Auto 8.8 % (2-11); Neutrophils Absolute Auto 3.4 x10*3/uL (2.0-8.3); Neutrophils Percent Auto 59.8 % (45-73); Platelet Count 281 X10*3/uL (160-400); Red Blood Count 3.88 X10*6/uL (4.20-5.50); Red Cell Distribution Width 13.8 % (11.0-16.0); White Blood Count 5.7 X10*3/uL (4.8-10.8)
[2022-03-29 01:35] LABS: Alanine Aminotransferase 17 U/L (0-31); Albumin Level 4.1 g/dL (3.5-5.0); Alkaline Phosphatase 64 U/L (39-117); Anion Gap 10 (12-20); Aspartate Amino Transferase 26 U/L (5-31); Bilirubin Total 0.2 mg/dL (0.0-1.0); Blood Urea Nitrogen 39 mg/dL (9-16); Calcium 9.6 mg/dL (8.4-10.2); Carbon Dioxide 32 mmol/L (22-29); Chloride 100 mmol/L (96-108); Estimated Glomerular Filt Rate 51; Glucose Random 115 mg/dL (60-115); Potassium 4.3 mmol/L (3.3-5.1); Sodium 138 mmol/L (135-145); Total Protein 7.5 g/dL (6.5-8.0); Troponin-I High Sensitivity < 3.5 ng/L (<3.5-17.0)
--- NOTE | 2022-03-29 01:41 | PC.NURSE ---
pt came to triage door to state that it is happening again pt states she has some dizziness. pt pulse 80, spo2 99% on RA. 165/76. pr reassured, ambulated to WR with steady gait, refused w/c.
--- NOTE | 2022-03-29 02:45 | ED.GENADULT ---
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 Patient felt rapid palpitation while she was sleeping last night, patient is known to have history of anxiety taking alprazolam 1 mg 4 times a day for it, patient otherwise declines shortness of breath or chest pain, in the emergency department patient appear anxious but no distress. Patient had similar symptoms with frequent ED visits for similar symptoms usually with negative workup in the emergency department. Patient otherwise decline CP, SOB, abdominal pain, dysuria, fever, and chills. Related Data Home Medications Medication Instructions Recorded Confirmed alprazolam 0.5 mg tablet 0.5 mg PO TID PRN 08/09/20 11/21/21 aripiprazole 2 mg tablet 2 mg PO BEDTIME 08/09/20 11/21/21 cholecalciferol (vitamin D3) 25 25 mcg PO BID 08/09/20 11/21/21 mcg (1,000 unit) tablet hydroxyzine HCl 50 mg tablet 50 mg PO TID PRN 08/09/20 11/21/21 linaclotide 145 mcg capsule 145 mcg PO DAILY 08/09/20 11/21/21 mirtazapine 45 mg tablet 45 mg PO BEDTIME 08/09/20 11/21/21 multivitamin 1 cap PO DAILY 08/09/20 11/21/21 omeprazole 20 mg tablet,delayed 20 mg PO DAILY 08/09/20 11/21/21 release sertraline 50 mg tablet 50 mg PO BEDTIME 08/09/20 11/21/21 Previous Rx's Medication Instructions Recorded escitalopram oxalate 10 mg tablet 10 mg PO DAILY #30 tab 09/06/20 acetaminophen 325 mg capsule 325 mg PO QID PRN #30 cap 09/16/20 aspirin 81 mg tablet,delayed 81 mg PO BEDTIME #90 tab 09/28/20 release metoprolol succinate 50 mg 50 mg PO DAILY #90 tab 09/28/20 tablet,extended release 24 hr menthol 0.44 %-zinc oxide 20.6 % 1 appl TOPICAL QID PRN #113 g 12/13/20 topical ointment (Calmoseptine) magnesium citrate 150 ml PO DAILY PRN #296 ml 12/14/20 diphenhydramine HCl 25 mg capsule 25 mg PO BEDTIME #7 cap 12/25/20 (Benadryl) melatonin 10 mg tablet,extended 10 mg PO .nightly #5 tab 01/07/21 release cefdinir 300 mg capsule 300 mg PO BID 10 Days #20 cap 04/14/21 ondansetron HCl 4 mg tablet 4 mg PO Q8H PRN #14 tab 04/14/21 (Zofran) metoprolol succinate 50 mg 50 mg PO DAILY #14 tab 05/22/21 tablet,extended release 24 hr ciprofloxacin 0.3 %-dexamethasone 4 drp OTIC (EARS) BID 7 Days ml 05/26/21 0.1 % ear drops,suspension (Ciprodex) lisinopril 40 mg tablet 40 mg PO QPM #90 tab 05/31/21 polyethylene glycol 3350 17 17 g PO DAILY PRN #238 g 07/31/21 gram/dose oral powder (Miralax) hydrocortisone acetate 25 mg 25 mg [place] BID #12 ea 08/01/21 rectal suppository (Anucort-HC) cefuroxime axetil 500 mg tablet 500 mg PO BID 7 Days #14 tab 09/01/21 meclizine 25 mg tablet 25 mg PO TID PRN #10 tab 09/01/21 zolpidem 5 mg tablet (Ambien) 5 mg PO BEDTIME PRN #2 tab 10/29/21 zolpidem 5 mg tablet (Ambien) 5 mg PO BEDTIME PRN #2 tab 10/29/21 Allergies Allergy/AdvReac Type Severity Reaction Status Date / Time penicillin G [Penicillin G] Allergy Severe ITCHY/RASH Verified 01/29/22 04:31 Sulfa (Sulfonamide Allergy Severe ITCHY,RASH, Verified 01/29/22 04:31 Antibiotics) rash [Sulfa (Sulfonamides)] trimethoprim [From Bactrim] Allergy Severe HIVES Verified 01/29/22 04:31 penicillin V Allergy Unknown rash Verified 01/29/22 04:31 sulfacetamide Allergy Unknown unknown Verified 01/29/22 04:31 [From Sulfacet-R] sulfur [From Sulfacet-R] Allergy Unknown unknown Verified 01/29/22 04:31 Review of Systems Review of Systems: All other systems are reviewed and are negative Constitutional: Reports as per HPI and Reports no additional constitutional complaints Eyes: Reports as per HPI and Reports no additional eye complaints Reports system reviewed and no additional complaints, except as documented Cardiovascular: Reports as per HPI and Reports no additional cardiovascular complaints Respiratory: Reports as per HPI and Reports no additional respiratory complaints Gastrointestinal: Reports as per HPI and Reports no additional gastrointestinal complaints Genitourinary: Reports no additional female genitourinary complaints Musculoskeletal: Reports no additional musculoskeletal complaints Skin/Breast: Reports system reviewed and no additional complaints, except as docu Psychiatric: Reports no additional psychiatric complaints Endocrine: Reports no additional endocrine complaints Hematologic/Lymphatic: Reports no additional hematologic/lymphatic complaints Allergic/Immunologic: Reports no additional allergic/immunologic complaints Reports system reviewed and no additional complaints, except as documented and Reports Abnormal speech present [facility] Past Medical History Medical History Anxiety Arthritis Bleeding hemorrhoids Chronic constipation Dementia Essential hypertension High blood pressure PAC (premature atrial contraction) PVC (premature ventricular contraction) SVT (supraventricular tachycardia) Vertigo Surgical History No pertinent past surgical history Social History Social History Alcohol intake: never Patient Tobacco Use Status: Never used Tobacco Advance Directives: No Physical Exam ED Vital Signs: Vital Signs - 24 hr 03/29/22 00:49 03/29/22 01:44 03/29/22 02:18 Temperature 97.7 F Pulse Rate 83 80 77 Respiratory Rate 16 16 18 Blood Pressure 156/75 H 165/76 H 174/69 H Pulse Oximetry 98 98 BMI result Body Mass Index 24.5 Vital signs have been reviewed as appeared to be correct. Blood pressure elevated (due to patient anxiety) Heart rate normal. Respiration rate normal. Temperature normal. Oxygen saturation normal. Appearance: Alert. Oriented X3. No acute distress. Appear anxious. Head: Normal external exam. Normocephalic. Atraumatic. No Gomes signs noted. No raccoon eyes noted Eyes: PERRLA. EOMI. Conjunctiva and sclera normal. Eyelids normal. ENT: TM's Normal. Pharynx normal. Uvula midline. Moist mucous membranes. No trismus noted. No drooling noted. No muffled voice noted. Neck: Normal inspection. Neck supple. FROM. No adenopathy. Thyroid Normal. No meningeal signs. No neck mass noted. CVS: Normal heart rate and rhythm. Heart sound normal. No murmurs noted. Pulses normal throughout. Respiratory: No respiratory distress. Painless inspiration. Breath sounds normal. No wheezes/rales/rhonchi noted. Chest nontender. No accessory muscle usage noted or decreased air movement noted. Abdomen: Soft and nontender. Bowel sounds normal in all 4 quadrants. No distention noted. No organomegaly noted. No visible injury noted. Back: No CVA tenderness. Full range of motion noted. Skin: Skin warm and dry. Normal skin color. Normal skin turgor. No rashes/lesions/lacerations noted. Extremities: No lower extremity edema. Extremities exhibit normal range of motion. Extremities nontender. Neuro: Oriented X 3. Cranial nerve exam: II-XII are grossly intact No motor deficit. No sensory deficit. Reflexes normal. Course Course Course Narrative: Assessment and plan. 76-year-old female with history of anxiety presented with palpitation while she was sleeping, patient's symptoms improved in the emergency department, patient received 1 mg of Ativan in the ED patient feels relaxed. Medical Decision Making Lab Data Lab results reviewed: Yes I reviewed the patient's lab results. Result diagrams: 03/29/22 01:04 03/29/22 01:04 Labs: Lab Results 03/29/22 03/29/22 03/29/22 Range/Units 01:04 01:04 01:04 WBC 5.7 (4.8-10.8) X10*3/uL RBC 3.88 L (4.20-5.50) X10*6/uL Hgb 10.8 L (12.0-16.0) g/dl Hct 33.4 L (37.0-47.0) % MCV 86.1 (80.0-98.0) fL MCH 27.8 (27.0-33.0) pg MCHC 32.3 (31.0-35.0) g/dl RDW 13.8 (11.0-16.0) % Plt Count 281 (160-400) X10*3/uL MPV 9.0 L (9.4-12.3) fL Immature Gran % (Auto) 0.4 (0.0-0.4) % Neut % (Auto) 59.8 (45-73) % Lymph % (Auto) 28.7 (20-40) % Boundary % (Auto) 8.8 (2-11) % Eos % (Auto) 1.6 (0-4) % Baso % (Auto) 0.7 (0-2) % Lymph # (Auto) 1.6 (1.2-4.9) X10*3/uL Boundary # (Auto) 0.5 (0.1-1.2) X10*3/uL Eos # (Auto) 0.1 (0.0-0.4) X10*3/uL Baso # (Auto) 0.0 (0.0-0.2) X10*3/uL Abs Immat Gran (auto) 0.02 (0.00-0.03) X10*3/uL Absolute Neuts (auto) 3.4 (2.0-8.3) x10*3/uL Absolute Nucleated RBC 0.000 (0.0-0.012) X10*3/uL Nucleated RBC % (auto) 0.0 (0.0-0.2) /100WBC Sodium 138 (135-145) mmol/L Potassium 4.3 (3.3-5.1) mmol/L Chloride 100 (96-108) mmol/L Carbon Dioxide 32 H (22-29) mmol/L Anion Gap 10 L (12-20) BUN 39 H (9-16) mg/dL Creatinine 1.04 (0.5-1.4) mg/dL Estim Creat Clear Calc 45.0 Estimated GFR 51 Random Glucose 115 (60-115) mg/dL Calcium 9.6 (8.4-10.2) mg/dL Total Bilirubin 0.2 (0.0-1.0) mg/dL AST 26 (5-31) U/L ALT 17 (0-31) U/L Alkaline Phosphatase 64 (39-117) U/L Troponin I High Sens < 3.5 (<3.5-17.0) ng/L Total Protein 7.5 (6.5-8.0) g/dL Albumin 4.1 (3.5-5.0) g/dL ECG Data Attestation: I personally reviewed and interpreted this ECG as follows: Interpretation: Normal sinus rhythm at 77 beats per minutes, left axis deviation, no ST-T changes, no change from an old EKG. Discharge Plan Discharge Clinical Impression: Generalized anxiety disorder with panic attacks Patient Disposition: Home, Self-Care Instructions: Anxiety (ED) Prescriptions: No Action escitalopram oxalate 10 mg tablet 10 mg PO DAILY Qty: 30 1RF metoprolol succinate 50 mg tablet extended release 24 hr 50 mg PO DAILY Qty: 90 2RF aspirin 81 mg tablet,delayed release (DR/EC) 81 mg PO BEDTIME Qty: 90 2RF lisinopril 40 mg tablet 40 mg PO QPM Qty: 90 4RF polyethylene glycol 3350 [Miralax] 17 gram/dose powder 17 g PO DAILY PRN (Reason: constipation) Qty: 238 0RF acetaminophen 325 mg capsule 325 mg PO QID PRN (Reason: fever or pain) Qty: 30 0RF melatonin 10 mg tablet extended release 10 mg PO .nightly Qty: 5 0RF metoprolol succinate 50 mg tablet extended release 24 hr 50 mg PO DAILY Qty: 14 0RF ciprofloxacin-dexamethasone [Ciprodex] 0.3-0.1 % drops,suspension 4 drp otic (ears) BID 7 Days 0RF alprazolam 0.5 mg Tablet 0.5 mg PO TID PRN (Reason: Anxiety) 0RF hydroxyzine HCl 50 mg Tablet 50 mg PO TID PRN (Reason: Anxiety) 0RF mirtazapine 45 mg Tablet 45 mg PO BEDTIME 0RF multivitamin Capsule 1 cap PO DAILY 0RF sertraline 50 mg Tablet 50 mg PO BEDTIME 0RF aripiprazole 2 mg Tablet 2 mg PO BEDTIME 0RF cholecalciferol (vitamin D3) 25 mcg (1,000 unit) Tablet 25 mcg PO BID 0RF omeprazole 20 mg Tablet,Delayed Release (Dr/Ec) 20 mg PO DAILY 0RF linaclotide 145 mcg Capsule 145 mcg PO DAILY 0RF diphenhydramine HCl [Benadryl] 25 mg capsule 25 mg PO BEDTIME Qty: 7 0RF cefdinir 300 mg capsule 300 mg PO BID 10 Days Qty: 20 0RF ondansetron HCl [Zofran] 4 mg tablet 4 mg PO Q8H PRN (Reason: nausea and vomiting) Qty: 14 0RF cefuroxime axetil 500 mg tablet 500 mg PO BID 7 Days Qty: 14 0RF meclizine 25 mg tablet 25 mg PO TID PRN (Reason: dizziness) Qty: 10 0RF Calmoseptine 0.44-20.6 % ointment 1 appl topical QID PRN (Reason: skin irritation) Qty: 113 0RF magnesium citrate Solution 150 ml PO DAILY PRN (Reason: constipation) Qty: 296 0RF Rx Instructions: take only when needed for constipation hydrocortisone acetate [Anucort-HC] 25 mg suppository 25 mg [place] BID Qty: 12 3RF zolpidem [Ambien] 5 mg tablet 5 mg PO BEDTIME PRN (Reason: sleep) Qty: 2 0RF zolpidem [Ambien] 5 mg tablet 5 mg PO BEDTIME PRN (Reason: sleep) Qty: 2 0RF Referrals: Name,MD Nitin [Primary Care Provider] -
[2022-03-29] MEDS: LORazepam 1 MG TABLET PO (02:57)
[2022-03-29] MEDS: Acetaminophen 325 MG TABLET 650 MG PO (02:57)
== END 2022-03-29 05:25 | disposition home or self-care (01) ==
PROVIDERS: Emergency Provider Emergency Medicine; PCP Internal Medicine Geriatric Medicine
DX: F41.1 Generalized anxiety disorder (principal); F41.0 Panic disorder [episodic paroxysmal anxiety]; I10 Essential (primary) hypertension; Z79.899 Other long term (current) drug therapy
CPT/HCPCS: 36415; 80053; 84484; 85025; 93005; 99283; 99284

== ENCOUNTER 2022-05-08 08:06 | Emergency (ER) | payer OTHER, SELFPAY ==
--- NOTE | ~2022-05-08 | XR_ITS ---
EXAMINATION: XR TIBIA AND FIBULA, LEFT CLINICAL INFORMATION: Posterior leg pain status post fall. COMPARISON: Left knee radiographs dated 12/16/2018. TECHNIQUE: AP and lateral views of the left tibia and fibula were obtained. FINDINGS: A corticated osseous density seen at the level of the midline anterior tibia and tibial tuberosity without displacement. The remainder of the tibia as well as the fibula are intact. There is no joint effusion. Mild degenerative patellar spurring is noted. The left ankle appears intact. There is a moderate-sized retrocalcaneal spur. The soft tissues are unremarkable. XR/XR tibia fibula LT 2V IMPRESSION: No definitive acute fracture. Chronic proximal left tibia/knee findings without significant change.
[2022-05-08 08:10] VITALS: BP 162/88; PULSE 79; O2SAT 100
[2022-05-08 08:11] VITALS: BP 155/80; PULSE 76; RESP 18; TEMP 36.6; O2SAT 99; BMI 23.5
--- NOTE | 2022-05-08 08:12 | ED_ITS ---
HPI - Fall General Chief Complaint: Fall Stated Complaint: TRIP & FALL ON CURBING L KNEE PAIN PER EMS Time Seen by Provider: 05/08/22 08:12 Source: patient and site interpreter Mode of arrival: EMS Limitations: no limitations History of Present Illness MD complaint: fall Onset (ago): minute(s) (just prior to arrival ) Fall from: standing Fall witnessed: yes, by bystander Place fall occurred: street Loss of consciousness: none Prolonged down time: no Symptoms prior to fall: none Context: tripped/slipped Location of injury - extremities: left: lower leg Severity: mild Quality: dull Associated symptoms (after fall): other (abrasion on left lower leg) Related Data Home Medications Medication Instructions Recorded Confirmed alprazolam 0.5 mg tablet 0.5 mg PO TID PRN Anxiety 08/09/20 11/21/21 aripiprazole 2 mg tablet 2 mg PO BEDTIME 08/09/20 11/21/21 cholecalciferol (vitamin D3) 25 25 mcg PO BID 08/09/20 11/21/21 mcg (1,000 unit) tablet hydroxyzine HCl 50 mg tablet 50 mg PO TID PRN Anxiety 08/09/20 11/21/21 linaclotide 145 mcg capsule 145 mcg PO DAILY 08/09/20 11/21/21 mirtazapine 45 mg tablet 45 mg PO BEDTIME 08/09/20 11/21/21 multivitamin 1 cap PO DAILY 08/09/20 11/21/21 omeprazole 20 mg tablet,delayed 20 mg PO DAILY 08/09/20 11/21/21 release sertraline 50 mg tablet 50 mg PO BEDTIME 08/09/20 11/21/21 Previous Rx's Medication Instructions Recorded escitalopram oxalate 10 mg tablet 10 mg PO DAILY #30 tabs 09/06/20 acetaminophen 325 mg capsule 325 mg PO QID PRN fever or pain 09/16/20 #30 caps aspirin 81 mg tablet,delayed 81 mg PO BEDTIME #90 tabs 09/28/20 release metoprolol succinate 50 mg 50 mg PO DAILY #90 tabs 09/28/20 tablet,extended release 24 hr menthol 0.44 %-zinc oxide 20.6 % 1 appl topical QID PRN skin 12/13/20 topical ointment (Calmoseptine) irritation #113 grams magnesium citrate 150 ml PO DAILY PRN constipation 12/14/20 #296 mL diphenhydramine HCl 25 mg capsule 25 mg PO BEDTIME insomnia #7 caps 12/25/20 (Benadryl) melatonin 10 mg tablet,extended 10 mg PO .nightly #5 tabs 01/07/21 release cefdinir 300 mg capsule 300 mg PO BID Otitis media 10 days 04/14/21 #20 caps ondansetron HCl 4 mg tablet 4 mg PO Q8H PRN nausea and 04/14/21 (Zofran) vomiting #14 tabs metoprolol succinate 50 mg 50 mg PO DAILY #14 tabs 05/22/21 tablet,extended release 24 hr ciprofloxacin 0.3 %-dexamethasone 4 drp otic (ears) BID 7 days 05/26/21 0.1 % ear drops,suspension (Ciprodex) lisinopril 40 mg tablet 40 mg PO QPM #90 tabs 05/31/21 polyethylene glycol 3350 17 17 g PO DAILY PRN constipation 07/31/21 gram/dose oral powder (Miralax) #238 grams hydrocortisone acetate 25 mg 25 mg [place] BID #12 ea 08/01/21 rectal suppository (Anucort-HC) cefuroxime axetil 500 mg tablet 500 mg PO BID 7 days #14 tabs 09/01/21 meclizine 25 mg tablet 25 mg PO TID PRN dizziness #10 tabs 09/01/21 zolpidem 5 mg tablet (Ambien) 5 mg PO BEDTIME PRN sleep #2 tabs 10/29/21 zolpidem 5 mg tablet (Ambien) 5 mg PO BEDTIME PRN sleep #2 tabs 10/29/21 Allergies Allergy/AdvReac Type Severity Reaction Status Date / Time penicillin G [Penicillin G] Allergy Severe ITCHY/RASH Verified 01/29/22 04:31 Sulfa (Sulfonamide Allergy Severe ITCHY,RASH, Verified 01/29/22 04:31 Antibiotics) rash [Sulfa (Sulfonamides)] trimethoprim [From Bactrim] Allergy Severe HIVES Verified 01/29/22 04:31 penicillin V Allergy Unknown rash Verified 01/29/22 04:31 sulfacetamide Allergy Unknown unknown Verified 01/29/22 04:31 [From Sulfacet-R] sulfur [From Sulfacet-R] Allergy Unknown unknown Verified 01/29/22 04:31 Review of Systems Review of Systems: Constitutional : No Fever, No Chills ENT/Mouth : No Ear Pain, No Hoarseness, No sore throat Eyes: No Eye Pain, No Swelling, No Redness, No Foreign Body Cardiovascular : No Chest Pain, No SOB Respiratory : No Cough, No Dyspnea Gastrointestinal : No Nausea, No Vomiting, No Diarrhea, No abdominal Pain Genitourinary : No Dysuria, No Hematuria Musculoskeletal : positive joint pain, No Myalgias, No Joint Swelling Skin : No Skin lacerations, No rash, pos abrasion Neuro : No Weakness, No Numbness, No Loss of Consciousness, No Dizziness, No Headache [facility] Past Medical History Attestation statement: The following information was validated with the patient. Medical History Anxiety Arthritis Dementia High blood pressure Vertigo Surgical History No pertinent past surgical history Social History Social History Alcohol intake: never Patient Tobacco Use Status: Never used Tobacco Advance Directives: No Advance Directives Information Provided: Yes Physical Exam Vital Signs: Vital Signs: Last Vital Signs Temp 98.0 F 05/08/22 08:43 Pulse 76 05/08/22 08:43 Resp 18 05/08/22 08:43 BP 155/80 H 05/08/22 08:43 Pulse Ox 99 05/08/22 08:43 O2 Del Method 05/08/22 08:43 BMI result Body Mass Index 23.5 Appearance: Alert. Oriented X3. No acute distress. Eyes: Pupils equal, round and reactive to light. ENT: Pharynx normal. Neck: Normal inspection. Neck supple. CVS: Normal heart rate and rhythm. Pulses normal. Respiratory: No respiratory distress. Breath sounds normal. Abdomen: Soft and nontender. Skin: Skin warm and dry. Normal skin color. Normal skin turgor. Extremities: No lower extremity edema. L anterior nieves two superficial abrasi ons noted - cleaned and dressed by me, bacitracin applied, contusion noted no hip / ankle pain can bend knee distal NV intact Neuro: Oriented X 3. No motor deficit. No sensory deficit. MDM - Fall MDM Narrative Medical decision making narrative: 76 yo female with hx of HTN, anxiety, dementia not on blood thinners mechanical fall with isolated injury to left anterior nieves did not hit head at this time xrays of lower leg, wound care to anterior nieves - dispo per results and findings. Discharge Plan Discharge Clinical Impression: Abrasion, Contusion Patient Disposition: Home, Self-Care Instructions: Abrasion (ED), Contusion in Adults (ED) Additional Instructions: return to ED for any worsening symptoms or concerns cambio de vendaje ma?delmy. mantener limpio y seco. aplique pomada antibi?rj suzy vez al d?a y use suzy tirita monitorear enrojecimiento, drenaje [place], fiebre, signos de infecci?n Prescriptions: No Action escitalopram oxalate 10 mg tablet 10 mg PO DAILY Qty: 30 1RF metoprolol succinate 50 mg tablet extended release 24 hr 50 mg PO DAILY Qty: 90 2RF aspirin 81 mg tablet,delayed release (DR/EC) 81 mg PO BEDTIME Qty: 90 2RF lisinopril 40 mg tablet 40 mg PO QPM Qty: 90 4RF polyethylene glycol 3350 [Miralax] 17 gram/dose powder 17 g PO DAILY PRN (Reason: constipation) Qty: 238 0RF acetaminophen 325 mg capsule 325 mg PO QID PRN (Reason: fever or pain) Qty: 30 0RF melatonin 10 mg tablet extended release 10 mg PO .nightly Qty: 5 0RF metoprolol succinate 50 mg tablet extended release 24 hr 50 mg PO DAILY Qty: 14 0RF ciprofloxacin-dexamethasone [Ciprodex] 0.3-0.1 % drops,suspension 4 drp otic (ears) BID 7 Days 0RF alprazolam 0.5 mg Tablet 0.5 mg PO TID PRN (Reason: Anxiety) hydroxyzine HCl 50 mg Tablet 50 mg PO TID PRN (Reason: Anxiety) mirtazapine 45 mg Tablet 45 mg PO BEDTIME multivitamin Capsule 1 cap PO DAILY sertraline 50 mg Tablet 50 mg PO BEDTIME aripiprazole 2 mg Tablet 2 mg PO BEDTIME cholecalciferol (vitamin D3) 25 mcg (1,000 unit) Tablet 25 mcg PO BID omeprazole 20 mg Tablet,Delayed Release (Dr/Ec) 20 mg PO DAILY linaclotide 145 mcg Capsule 145 mcg PO DAILY diphenhydramine HCl [Benadryl] 25 mg capsule 25 mg PO BEDTIME Qty: 7 0RF cefdinir 300 mg capsule 300 mg PO BID 10 Days Qty: 20 0RF ondansetron HCl [Zofran] 4 mg tablet 4 mg PO Q8H PRN (Reason: nausea and vomiting) Qty: 14 0RF cefuroxime axetil 500 mg tablet 500 mg PO BID 7 Days Qty: 14 0RF meclizine 25 mg tablet 25 mg PO TID PRN (Reason: dizziness) Qty: 10 0RF Calmoseptine 0.44-20.6 % ointment 1 appl topical QID PRN (Reason: skin irritation) Qty: 113 0RF magnesium citrate Solution 150 ml PO DAILY PRN (Reason: constipation) Qty: 296 0RF Rx Instructions: take only when needed for constipation hydrocortisone acetate [Anucort-HC] 25 mg suppository 25 mg GA BID Qty: 12 3RF zolpidem [Ambien] 5 mg tablet 5 mg PO BEDTIME PRN (Reason: sleep) Qty: 2 0RF zolpidem [Ambien] 5 mg tablet 5 mg PO BEDTIME PRN (Reason: sleep) Qty: 2 0RF Print Language: [place]
[2022-05-08 08:43] VITALS: BP 155/80; PULSE 76; RESP 18; TEMP 36.7; O2SAT 99
== END 2022-05-08 09:35 | disposition home or self-care (01) ==
PROVIDERS: Emergency Provider Emergency Medicine; PCP Internal Medicine Geriatric Medicine
DX: S70.02XA Contusion of left hip, initial encounter (principal); S90.02XA Contusion of left ankle, initial encounter; S80.02XA Contusion of left knee, initial encounter; S80.812A Abrasion, left lower leg, initial encounter; W17.89XA Other fall from one level to another, initial encounter; M25.562 Pain in left knee; M25.552 Pain in left hip; M25.572 Pain in left ankle and joints of left foot; Y93.01 Activity, walking, marching and hiking; Y92.414 Local residential or business street as the place of occurrence of the external cause; Y99.8 Other external cause status; I10 Essential (primary) hypertension; F03.90 Unspecified dementia, unspecified severity, without behavioral disturbance, psychotic disturbance, mood disturbance, and anxiety
CPT/HCPCS: 73590; 99283

== ENCOUNTER 2022-05-22 10:42 | Emergency (ER) | payer OTHER, SELFPAY ==
--- NOTE | 2022-05-22 11:08 | ED.GENADULT ---
HPI - General Adult General Stated complaint: WOKE UP W/NECK PAIN Time Seen by Provider: 05/22/22 11:03 Source: patient and EMS Mode of arrival: EMS Limitations: no limitations History of Present Illness HPI narrative: Patient comes to emergency room complaining of left-sided neck pain. Patient states this morning she woke up unable to turn her neck to the left. Patient denies any injuries. Patient states that she has no problems turning her head towards the right or flexing and extending head, it only turning towards the left side. Patient denies fever chills, no back pain, no headache. Patient also complaining of anxiety. Patient states that she went to see her primary care physician today, and they sent her to the emergency room for further evaluation. Patient states that EMS gave her Tylenol prior to arrival. Related Data Home Medications Medication Instructions Recorded Confirmed alprazolam 0.5 mg tablet 0.5 mg PO TID PRN Anxiety 08/09/20 11/21/21 aripiprazole 2 mg tablet 2 mg PO BEDTIME 08/09/20 11/21/21 cholecalciferol (vitamin D3) 25 25 mcg PO BID 08/09/20 11/21/21 mcg (1,000 unit) tablet hydroxyzine HCl 50 mg tablet 50 mg PO TID PRN Anxiety 08/09/20 11/21/21 linaclotide 145 mcg capsule 145 mcg PO DAILY 08/09/20 11/21/21 mirtazapine 45 mg tablet 45 mg PO BEDTIME 08/09/20 11/21/21 multivitamin 1 cap PO DAILY 08/09/20 11/21/21 omeprazole 20 mg tablet,delayed 20 mg PO DAILY 08/09/20 11/21/21 release sertraline 50 mg tablet 50 mg PO BEDTIME 08/09/20 11/21/21 Previous Rx's Medication Instructions Recorded escitalopram oxalate 10 mg tablet 10 mg PO DAILY #30 tabs 09/06/20 acetaminophen 325 mg capsule 325 mg PO QID PRN fever or pain 09/16/20 #30 caps aspirin 81 mg tablet,delayed 81 mg PO BEDTIME #90 tabs 09/28/20 release metoprolol succinate 50 mg 50 mg PO DAILY #90 tabs 09/28/20 tablet,extended release 24 hr menthol 0.44 %-zinc oxide 20.6 % 1 appl topical QID PRN skin 12/13/20 topical ointment (Calmoseptine) irritation #113 grams magnesium citrate 150 ml PO DAILY PRN constipation 12/14/20 #296 mL diphenhydramine HCl 25 mg capsule 25 mg PO BEDTIME insomnia #7 caps 12/25/20 (Benadryl) melatonin 10 mg tablet,extended 10 mg PO .nightly #5 tabs 01/07/21 release cefdinir 300 mg capsule 300 mg PO BID Otitis media 10 days 04/14/21 #20 caps ondansetron HCl 4 mg tablet 4 mg PO Q8H PRN nausea and 04/14/21 (Zofran) vomiting #14 tabs metoprolol succinate 50 mg 50 mg PO DAILY #14 tabs 05/22/21 tablet,extended release 24 hr ciprofloxacin 0.3 %-dexamethasone 4 drp otic (ears) BID 7 days 05/26/21 0.1 % ear drops,suspension (Ciprodex) lisinopril 40 mg tablet 40 mg PO QPM #90 tabs 05/31/21 polyethylene glycol 3350 17 17 g PO DAILY PRN constipation 07/31/21 gram/dose oral powder (Miralax) #238 grams hydrocortisone acetate 25 mg 25 mg [place] BID #12 ea 08/01/21 rectal suppository (Anucort-HC) cefuroxime axetil 500 mg tablet 500 mg PO BID 7 days #14 tabs 09/01/21 meclizine 25 mg tablet 25 mg PO TID PRN dizziness #10 tabs 09/01/21 zolpidem 5 mg tablet (Ambien) 5 mg PO BEDTIME PRN sleep #2 tabs 10/29/21 zolpidem 5 mg tablet (Ambien) 5 mg PO BEDTIME PRN sleep #2 tabs 10/29/21 Allergies Allergy/AdvReac Type Severity Reaction Status Date / Time penicillin G [Penicillin G] Allergy Severe ITCHY/RASH Verified 01/29/22 04:31 Sulfa (Sulfonamide Allergy Severe ITCHY,RASH, Verified 01/29/22 04:31 Antibiotics) rash [Sulfa (Sulfonamides)] trimethoprim [From Bactrim] Allergy Severe HIVES Verified 01/29/22 04:31 penicillin V Allergy Unknown rash Verified 01/29/22 04:31 sulfacetamide Allergy Unknown unknown Verified 01/29/22 04:31 [From Sulfacet-R] sulfur [From Sulfacet-R] Allergy Unknown unknown Verified 01/29/22 04:31 Review of Systems Review of Systems: Constitutional : No Weight loss, No Fever, No Chills, No Night Sweats, No Fatigue, No Malaise ENT/Mouth : No Hearing loss, No Ear Pain, No Nasal Congestion, No Sinus Pain, No Hoarseness, No sore throat, No Rhinorrhea, No Swallowing Difficulty Eyes: No Eye Pain, No Swelling, No Redness, No Foreign Body, No Discharge, No Vision Changes Cardiovascular : No Chest Pain, No SOB, No Dyspnea on Exertion, No Orthopnea, No Edema, No Palpitations Respiratory : No Cough, No Sputum, No Wheezing, No Smoke Exposure, No Dyspnea Gastrointestinal : No Nausea, No Vomiting, No Diarrhea, No Constipation, No abdominal Pain, No Hematochezia, No Melena Genitourinary : no irregular bleeding, No Dysuria, No Urinary Frequency, No Hematuria, No Urinary Incontinence, No Urgency, No Flank Pain, No Urinary Flow Changes, No Hesitancy Musculoskeletal : Complaining of left-sided neck pain, No joint pain, No Myalgias, No Joint Swelling Skin : No Skin Lesions, No rash Neuro : No Weakness, No Numbness, No Paresthesias, No Loss of Consciousness, No Dizziness, No Headache Psych : No Anxiety/Panic, No Depression, No SI/HI/AH/VH, No Social Issues, Heme/Lymph: No Bruising, No Bleeding,No Lymphadenopathy Endocrine : No Polyuria, No Polydipsia, No Temperature Intolerance [facility] Past Medical History Medical History Anxiety Arthritis Bleeding hemorrhoids Chronic constipation Dementia Essential hypertension High blood pressure PAC (premature atrial contraction) PVC (premature ventricular contraction) SVT (supraventricular tachycardia) Vertigo Surgical History No pertinent past surgical history Social History Social History Alcohol intake: never Patient Tobacco Use Status: Never used Tobacco Physical Exam ED Const Other: Appearance: Alert. Oriented X3. No acute distress. Eyes: Pupils equal, round and reactive to light. ENT: Pharynx normal. Neck: Normal inspection. Patient is able to flex and extend the neck, no C-spine tenderness, no palpable step-offs, no pain on the right side of the neck, only pain to palpation over the sternocleidomastoid on the left CVS: Normal heart rate and rhythm. Pulses normal. Normal S1 and S2 Respiratory: No respiratory distress. Breath sounds normal. No Wheezing. No rales Abdomen: Soft and nontender. No rigidity. No distention. Skin: Skin warm and dry. Normal skin color. Normal skin turgor. Extremities: No lower extremity edema. No Lacerations. No Rash Neuro: Oriented X 3. No motor deficit. No sensory deficit. Moving all extremities. No slurred speech. CN 2 through 12 grossly intact Psych: calm, cooperative, normal affect Course Course Course Narrative: I discussed with the patient that she has torticollis, patient was given 15 mg of IM Toradol and 2 mg of p.o. diazepam Discharge Plan Discharge Clinical Impression: Torticollis Patient Disposition: Home, Self-Care Instructions: Spasmodic Torticollis (ED) Additional Instructions: Please follow-up with your primary care physician tomorrow. If you have any worsening or new symptoms, please return to the emergency room or call 911 Prescriptions: No Action escitalopram oxalate 10 mg tablet 10 mg PO DAILY Qty: 30 1RF metoprolol succinate 50 mg tablet extended release 24 hr 50 mg PO DAILY Qty: 90 2RF aspirin 81 mg tablet,delayed release (DR/EC) 81 mg PO BEDTIME Qty: 90 2RF lisinopril 40 mg tablet 40 mg PO QPM Qty: 90 4RF polyethylene glycol 3350 [Miralax] 17 gram/dose powder 17 g PO DAILY PRN (Reason: constipation) Qty: 238 0RF acetaminophen 325 mg capsule 325 mg PO QID PRN (Reason: fever or pain) Qty: 30 0RF melatonin 10 mg tablet extended release 10 mg PO .nightly Qty: 5 0RF metoprolol succinate 50 mg tablet extended release 24 hr 50 mg PO DAILY Qty: 14 0RF ciprofloxacin-dexamethasone [Ciprodex] 0.3-0.1 % drops,suspension 4 drp otic (ears) BID 7 Days 0RF alprazolam 0.5 mg Tablet 0.5 mg PO TID PRN (Reason: Anxiety) hydroxyzine HCl 50 mg Tablet 50 mg PO TID PRN (Reason: Anxiety) mirtazapine 45 mg Tablet 45 mg PO BEDTIME multivitamin Capsule 1 cap PO DAILY sertraline 50 mg Tablet 50 mg PO BEDTIME aripiprazole 2 mg Tablet 2 mg PO BEDTIME cholecalciferol (vitamin D3) 25 mcg (1,000 unit) Tablet 25 mcg PO BID omeprazole 20 mg Tablet,Delayed Release (Dr/Ec) 20 mg PO DAILY linaclotide 145 mcg Capsule 145 mcg PO DAILY diphenhydramine HCl [Benadryl] 25 mg capsule 25 mg PO BEDTIME Qty: 7 0RF cefdinir 300 mg capsule 300 mg PO BID 10 Days Qty: 20 0RF ondansetron HCl [Zofran] 4 mg tablet 4 mg PO Q8H PRN (Reason: nausea and vomiting) Qty: 14 0RF cefuroxime axetil 500 mg tablet 500 mg PO BID 7 Days Qty: 14 0RF meclizine 25 mg tablet 25 mg PO TID PRN (Reason: dizziness) Qty: 10 0RF Calmoseptine 0.44-20.6 % ointment 1 appl topical QID PRN (Reason: skin irritation) Qty: 113 0RF magnesium citrate Solution 150 ml PO DAILY PRN (Reason: constipation) Qty: 296 0RF Rx Instructions: take only when needed for constipation hydrocortisone acetate [Anucort-HC] 25 mg suppository 25 mg VA BID Qty: 12 3RF zolpidem [Ambien] 5 mg tablet 5 mg PO BEDTIME PRN (Reason: sleep) Qty: 2 0RF zolpidem [Ambien] 5 mg tablet 5 mg PO BEDTIME PRN (Reason: sleep) Qty: 2 0RF
[2022-05-22 11:37] VITALS: BP 161/74; PULSE 68; RESP 16; TEMP 36.7; O2SAT 99; BMI 23.2
[2022-05-22] MEDS: Ketorolac Tromethamine 15 MG/ML VIAL IM (11:40)
[2022-05-22] MEDS: diazePAM 2 MG TABLET PO (11:41)
== END 2022-05-22 11:44 | disposition home or self-care (01) ==
PROVIDERS: Emergency Provider Emergency Medicine; PCP Internal Medicine Geriatric Medicine
DX: M43.6 Torticollis (principal); I10 Essential (primary) hypertension; Z79.82 Long term (current) use of aspirin; Z79.899 Other long term (current) drug therapy
CPT/HCPCS: 96372; 99283; 99284; J1885

== ENCOUNTER 2022-06-19 11:41 | Emergency (ER) | payer OTHER, SELFPAY ==
--- NOTE | ~2022-06-19 | XR_ITS ---
EXAMINATION: XR CHEST CLINICAL INFORMATION: Dizziness COMPARISON: None TECHNIQUE: Frontal view of the chest was obtained. FINDINGS: The lungs are well-expanded and clear of acute process. The heart size and pulmonary vascularity is normal. There is mild spondylosis dorsal spine. XR/XR chest 1V IMPRESSION: Unremarkable chest examination.
--- NOTE | 2022-06-19 11:42 | ECG_ITS ---
Test Reason : dizziness Blood Pressure : / mmHG Vent. Rate : 069 BPM Atrial Rate : 069 BPM P-R Int : 182 ms QRS Dur : 100 ms QT Int : 408 ms P-R-T Axes : -11 -19 024 degrees QTc Int : 437 ms Normal sinus rhythm with sinus arrhythmia Minimal voltage criteria for LVH, may be normal variant ( R in aVL ) Borderline ECG When compared with ECG of 29-MAR-2022 00:58, No significant change was found Referred By: Generic ED Physician Electronically Signed By:ZANDRA ENNIS
[2022-06-19 11:43] VITALS: BP 157/75; PULSE 75; RESP 20; TEMP 37.2; O2SAT 99; BMI 24.3
[2022-06-19 12:16] VITALS: BP 155/79; PULSE 74; RESP 14; TEMP 37; O2SAT 97
--- NOTE | 2022-06-19 12:26 | ED_ITS ---
HPI - Recheck/Abnormal Lab/Rx General Chief Complaint: Recheck/Abnormal Lab/Rx Stated Complaint: Dizziness Time Seen by Provider: 06/19/22 12:10 Source: patient and other (Expect note from [facility], nurse practitioner Verónica Escobar) Mode of arrival: ambulatory Limitations: language barrier (Patient's 1st language is Bhutanese, she does speak some Mongolian, staff interpreter was used) History of Present Illness HPI narrative: 76-year-old female who presents emergency department for evaluation of hypo tension and EKG changes. The patient states that 2 days prior she was very hot secondary to the record high temperatures. She states that she tried to call yourself off by taking a shower. When she got out of the shower she took her blood pressure it was 95/53 which was low. This concerned her and she called an ambulance. She states that she had no complaints and was not feeling badly but was concerned about a low blood pressure. EMS personnel took her blood pressure it was normal and they told her that her blood pressure may she may not be working. The patient followed up today with her primary care clinic, [facility] and was seen by the nurse practitioner Verónica Escobar. The patient had an EKG which showed some nonspecific T-wave changes compared to her previous EKG therefore she was sent to the emergency department for evaluation. Here in the emergency department the patient is extremely anxious but otherwise pleasant, cooperative and answers all questions appropriately. She currently has no complaints. She denied fever, chills, sore throat, cough, chest pain, shortness of breath, dyspnea on exertion, vomiting or diarrhea. She states she has chronic nausea. She denied dysuria or frequency. She has not noticed any bloody stools. She states that her stools are dark but this is not unusual for since she takes a medication for constipation. Related Data Home Medications Medication Instructions Recorded Confirmed alprazolam 0.5 mg tablet 0.5 mg PO TID PRN Anxiety 08/09/20 11/21/21 aripiprazole 2 mg tablet 2 mg PO BEDTIME 08/09/20 11/21/21 cholecalciferol (vitamin D3) 25 25 mcg PO BID 08/09/20 11/21/21 mcg (1,000 unit) tablet hydroxyzine HCl 50 mg tablet 50 mg PO TID PRN Anxiety 08/09/20 11/21/21 linaclotide 145 mcg capsule 145 mcg PO DAILY 08/09/20 11/21/21 mirtazapine 45 mg tablet 45 mg PO BEDTIME 08/09/20 11/21/21 multivitamin 1 cap PO DAILY 08/09/20 11/21/21 omeprazole 20 mg tablet,delayed 20 mg PO DAILY 08/09/20 11/21/21 release sertraline 50 mg tablet 50 mg PO BEDTIME 08/09/20 11/21/21 Previous Rx's Medication Instructions Recorded escitalopram oxalate 10 mg tablet 10 mg PO DAILY #30 tabs 09/06/20 acetaminophen 325 mg capsule 325 mg PO QID PRN fever or pain 09/16/20 #30 caps aspirin 81 mg tablet,delayed 81 mg PO BEDTIME #90 tabs 09/28/20 release metoprolol succinate 50 mg 50 mg PO DAILY #90 tabs 09/28/20 tablet,extended release 24 hr menthol 0.44 %-zinc oxide 20.6 % 1 appl topical QID PRN skin 12/13/20 topical ointment (Calmoseptine) irritation #113 grams magnesium citrate 150 ml PO DAILY PRN constipation 12/14/20 #296 mL diphenhydramine HCl 25 mg capsule 25 mg PO BEDTIME insomnia #7 caps 12/25/20 (Benadryl) melatonin 10 mg tablet,extended 10 mg PO .nightly #5 tabs 01/07/21 release cefdinir 300 mg capsule 300 mg PO BID Otitis media 10 days 04/14/21 #20 caps ondansetron HCl 4 mg tablet 4 mg PO Q8H PRN nausea and 04/14/21 (Zofran) vomiting #14 tabs metoprolol succinate 50 mg 50 mg PO DAILY #14 tabs 05/22/21 tablet,extended release 24 hr ciprofloxacin 0.3 %-dexamethasone 4 drp otic (ears) BID 7 days 05/26/21 0.1 % ear drops,suspension (Ciprodex) polyethylene glycol 3350 17 17 g PO DAILY PRN constipation 07/31/21 gram/dose oral powder (Miralax) #238 grams hydrocortisone acetate 25 mg 25 mg [place] BID #12 ea 08/01/21 rectal suppository (Anucort-HC) cefuroxime axetil 500 mg tablet 500 mg PO BID 7 days #14 tabs 09/01/21 meclizine 25 mg tablet 25 mg PO TID PRN dizziness #10 tabs 09/01/21 zolpidem 5 mg tablet (Ambien) 5 mg PO BEDTIME PRN sleep #2 tabs 10/29/21 zolpidem 5 mg tablet (Ambien) 5 mg PO BEDTIME PRN sleep #2 tabs 10/29/21 lisinopril 40 mg tablet 40 mg PO QPM #90 tabs 06/06/22 Allergies Allergy/AdvReac Type Severity Reaction Status Date / Time penicillin G [Penicillin G] Allergy Severe ITCHY/RASH Verified 06/19/22 11:43 Sulfa (Sulfonamide Allergy Severe ITCHY,RASH, Verified 06/19/22 11:43 Antibiotics) rash [Sulfa (Sulfonamides)] trimethoprim [From Bactrim] Allergy Severe HIVES Verified 06/19/22 11:43 penicillin V Allergy Unknown rash Verified 06/19/22 11:43 sulfacetamide Allergy Unknown unknown Verified 06/19/22 11:43 [From Sulfacet-R] sulfur [From Sulfacet-R] Allergy Unknown unknown Verified 06/19/22 11:43 Review of Systems Review of Systems: Yes all other systems are reviewed and are negative PMFSH Past Medical History [facility] Narrative: Social history: The patient states 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 She denies tobacco, alcohol and drug use. Medical History Anxiety Arthritis Bleeding hemorrhoids Chronic constipation Dementia Essential hypertension High blood pressure PAC (premature atrial contraction) PVC (premature ventricular contraction) SVT (supraventricular tachycardia) Vertigo Surgical History No pertinent past surgical history Social History Social History Alcohol intake: never Patient Tobacco Use Status: Never used Tobacco Use of substances other than those prescribed or required for medical reasons: No Advance Directives: No Advance Directives Information Provided: No Physical Exam Vital Signs: Vital Signs: Last Vital Signs Temp 98.6 F 06/19/22 12:16 Pulse 74 06/19/22 12:16 Resp 14 06/19/22 12:16 BP 155/79 H 06/19/22 12:16 Pulse Ox 97 06/19/22 12:16 O2 Del Method 06/19/22 12:16 BMI result Body Mass Index 24.3 Const: Other: The patient is very anxious, does not appear to be in distress otherwise. HEENT: Head: Yes normal to inspection, Yes normocephalic and Yes atraumatic Ears: external ears normal General nose exam: Normal external nose present Face and sinus: Yes normal facial exam Mouth: Normal oral and palatal mucosa present Throat: Yes posterior oropharynx normal Eyes: General: appearance normal, both eyes and all related structures Pupils: Equal, round and reactive pupils present Neck: Neck: Yes normal visual inspection, Yes no lymphadenopathy, Yes trachea midline and Yes supple Chest: Chest palpation & inspection: normal inspection of the chest and normal palpation of entire chest wall Resp: Effort & Inspection: normal respiratory effort and able to speak in complete sentences Auscultation: clear to auscultation bilaterally Cardio: Rate: regular rate Rhythm: regular rhythm Heart sounds: S1 normal heart sound present, S2 normal heart sound present and no murmurs GI: Inspection: Yes normal to inspection Palpation (GI): Soft to palpation, nontender and no guarding Auscultation: normal bowel sounds : General: Yes no CVA tenderness Back/Spine/Pelvis: Back: no CVA tenderness Skin: General skin exam: no rashes or lesions noted Neuro: Cranial nerves: Yes CN's II-XII intact bilaterally and Yes Equal, round and reactive pupils present Cognition (Neuro): normal cognition Motor exam (neuro): 5/5 motor strength present throughout Extrem: General: Yes normal to inspection Psych: Appearance: grossly normal Speech and movement: Normal speech and movement present Affect: normal affect Attitude: cooperative Thought process: Normal thought process present Thought content: Normal thought content present Course Course Course Narrative: 76-year-old female who was referred to the emergency department from [facility] for evaluation of low blood pressure and nonspecific T-wave changes on her EKG. The patient checked her blood pressure at home 2 days prior was low, she called an ambulance and then had a blood pressure done by EMS personnel which was normal. She followed up today with her provider at [facility] and was found that nonspecific EKG changes and sent to the emergency department. The patient did not have any significant symptoms based on my review of systems with her and based on her description of her presentation. The patient's outpatient 12 EKG did reveal an inverted T-wave in lead 3 and V1. Repeat EKG in the emergency department had similar findings. I did order laboratory evaluation includes CBC, CMP, , troponin, EKG, chest x-ray, urinalysis. The patient is extremely anxious she was treated with Ativan 1 mg orally. 1401: Patient's laboratory evaluation was unremarkable. Patient's high sensitivity troponin I was below detectable limits. COVID-19 test was negative. Chest x-ray was unremarkable. Patient's urinalysis was a non clean catch specimen is, she does not have any symptoms I do not think that she has a urinary tract infection at this time. The patient will be discharged home. She was given printed and verbal instructions advised to follow up with PCP for re- evaluation. MDM - Recheck/Abnormal Lab/Rx Medical Records Attestation: I reviewed the patient's medical records. Lab Data Attestation: I reviewed the patient's lab results. Result diagrams: 06/19/22 12:41 06/19/22 12:41 Labs: Lab Results 06/19/22 06/19/22 06/19/22 Range/Units 12:41 12:41 12:41 WBC 6.1 (4.8-10.8) X10*3/uL RBC 3.95 L (4.20-5.50) X10*6/uL Hgb 10.8 L (12.0-16.0) g/dl Hct 33.5 L (37.0-47.0) % MCV 84.8 (80.0-98.0) fL MCH 27.3 (27.0-33.0) pg MCHC 32.2 (31.0-35.0) g/dl RDW 13.9 (11.0-16.0) % Plt Count 276 (160-400) X10*3/uL MPV 8.6 L (9.4-12.3) fL Immature Gran % (Auto) 0.2 (0.0-0.4) % Neut % (Auto) 55.8 (45-73) % Lymph % (Auto) 31.9 (20-40) % [place] % (Auto) 10.0 (2-11) % Eos % (Auto) 1.6 (0-4) % Baso % (Auto) 0.5 (0-2) % Lymph # (Auto) 2.0 (1.2-4.9) X10*3/uL [place] # (Auto) 0.6 (0.1-1.2) X10*3/uL Eos # (Auto) 0.1 (0.0-0.4) X10*3/uL Baso # (Auto) 0.0 (0.0-0.2) X10*3/uL Abs Immat Gran (auto) 0.01 (0.00-0.03) X10*3/uL Absolute Neuts (auto) 3.4 (2.0-8.3) x10*3/uL Absolute Nucleated RBC 0.000 (0.0-0.012) X10*3/uL Nucleated RBC % (auto) 0.0 (0.0-0.2) /100WBC PT 10.4 (10.0-13.1) SEC INR 0.9 (0.9-1.1) Troponin I High Sens (<3.5-17.0) ng/L Lipase 34 (8-78) U/L Urine Color Urine Appearance Urine pH (5.0-8.0) Ur Specific [place] (1.005-1.025) Urine Protein (NEG-TRACE) MG/DL Urine Glucose (UA) (NEG) MG/DL Urine Ketones (NEG) MG/DL Urine Blood (NEG) Urine Nitrite (NEG) Ur Leukocyte Esterase (NEG) Urine RBC (0) /HPF Urine WBC (0-4) /HPF Urine WBC Clumps Ur Squamous Epith Cells /LPF Ur Renal Epithelial Cell /LPF Urine Bacteria /LPF COVID-19 ([facility]) (Negative) COVID-19 Clin Com 06/19/22 06/19/22 06/19/22 Range/Units 12:41 12:41 12:41 WBC (4.8-10.8) X10*3/uL RBC (4.20-5.50) X10*6/uL Hgb (12.0-16.0) g/dl Hct (37.0-47.0) % MCV (80.0-98.0) fL MCH (27.0-33.0) pg MCHC (31.0-35.0) g/dl RDW (11.0-16.0) % Plt Count (160-400) X10*3/uL MPV (9.4-12.3) fL Immature Gran % (Auto) (0.0-0.4) % Neut % (Auto) (45-73) % Lymph % (Auto) (20-40) % [place] % (Auto) (2-11) % Eos % (Auto) (0-4) % Baso % (Auto) (0-2) % Lymph # (Auto) (1.2-4.9) X10*3/uL [place] # (Auto) (0.1-1.2) X10*3/uL Eos # (Auto) (0.0-0.4) X10*3/uL Baso # (Auto) (0.0-0.2) X10*3/uL Abs Immat Gran (auto) (0.00-0.03) X10*3/uL Absolute Neuts (auto) (2.0-8.3) x10*3/uL Absolute Nucleated RBC (0.0-0.012) X10*3/uL Nucleated RBC % (auto) (0.0-0.2) /100WBC PT (10.0-13.1) SEC INR (0.9-1.1) Troponin I High Sens < 3.5 (<3.5-17.0) ng/L Lipase (8-78) U/L Urine Color YELLOW Urine Appearance CLEAR Urine pH 7.0 (5.0-8.0) Ur Specific [place] 1.010 (1.005-1.025) Urine Protein NEG (NEG-TRACE) MG/DL Urine Glucose (UA) NEG (NEG) MG/DL Urine Ketones NEG (NEG) MG/DL Urine Blood NEG (NEG) Urine Nitrite NEG (NEG) Ur Leukocyte Esterase 2+ H (NEG) Urine RBC 0 (0) /HPF Urine WBC 15-29 H (0-4) /HPF Urine WBC Clumps NOTED Ur Squamous Epith Cells 2+ /LPF Ur Renal Epithelial Cell 2+ /LPF Urine Bacteria TRACE /LPF COVID-19 ([facility]) Negative (Negative) COVID-19 Clin Com See Note ECG Data Attestation: I personally reviewed and interpreted this ECG as follows: Interpretation: 1145: Normal sinus rhythm with a rate of 69, normal PA interval, prolonged QRS of 100 milliseconds, normal QTC, inverted T-wave lead 3 and V1, this is unchan ged from the EKG sent in from the patient's healthcare clinic. These are nonspecific T-wave abnormalities. Discharge Plan Discharge Clinical Impression: Anxiety Patient Disposition: Home, Self-Care Additional Instructions: Your chest x-ray was unremarkable. Your EKG was unremarkable. Your laboratory evaluation was normal. Your COVID-19 test was negative. You were treated with Ativan 1 mg orally for anxiety. Follow-up with your doctor in 2 days. Please return to the emergency department if your symptoms get worse or if you develop any symptoms that are concerning to you. Prescriptions: No Action escitalopram oxalate 10 mg tablet 10 mg PO DAILY Qty: 30 1RF metoprolol succinate 50 mg tablet extended release 24 hr 50 mg PO DAILY Qty: 90 2RF aspirin 81 mg tablet,delayed release (DR/EC) 81 mg PO BEDTIME Qty: 90 2RF polyethylene glycol 3350 [Miralax] 17 gram/dose powder 17 g PO DAILY PRN (Reason: constipation) Qty: 238 0RF lisinopril 40 mg tablet 40 mg PO QPM Qty: 90 3RF acetaminophen 325 mg capsule 325 mg PO QID PRN (Reason: fever or pain) Qty: 30 0RF melatonin 10 mg tablet extended release 10 mg PO .nightly Qty: 5 0RF metoprolol succinate 50 mg tablet extended release 24 hr 50 mg PO DAILY Qty: 14 0RF ciprofloxacin-dexamethasone [Ciprodex] 0.3-0.1 % drops,suspension 4 drp otic (ears) BID 7 Days 0RF alprazolam 0.5 mg Tablet 0.5 mg PO TID PRN (Reason: Anxiety) hydroxyzine HCl 50 mg Tablet 50 mg PO TID PRN (Reason: Anxiety) mirtazapine 45 mg Tablet 45 mg PO BEDTIME multivitamin Capsule 1 cap PO DAILY sertraline 50 mg Tablet 50 mg PO BEDTIME aripiprazole 2 mg Tablet 2 mg PO BEDTIME cholecalciferol (vitamin D3) 25 mcg (1,000 unit) Tablet 25 mcg PO BID omeprazole 20 mg Tablet,Delayed Release (Dr/Ec) 20 mg PO DAILY linaclotide 145 mcg Capsule 145 mcg PO DAILY diphenhydramine HCl [Benadryl] 25 mg capsule 25 mg PO BEDTIME Qty: 7 0RF cefdinir 300 mg capsule 300 mg PO BID 10 Days Qty: 20 0RF ondansetron HCl [Zofran] 4 mg tablet 4 mg PO Q8H PRN (Reason: nausea and vomiting) Qty: 14 0RF cefuroxime axetil 500 mg tablet 500 mg PO BID 7 Days Qty: 14 0RF meclizine 25 mg tablet 25 mg PO TID PRN (Reason: dizziness) Qty: 10 0RF Calmoseptine 0.44-20.6 % ointment 1 appl topical QID PRN (Reason: skin irritation) Qty: 113 0RF magnesium citrate Solution 150 ml PO DAILY PRN (Reason: constipation) Qty: 296 0RF Rx Instructions: take only when needed for constipation hydrocortisone acetate [Anucort-HC] 25 mg suppository 25 mg PA BID Qty: 12 3RF zolpidem [Ambien] 5 mg tablet 5 mg PO BEDTIME PRN (Reason: sleep) Qty: 2 0RF zolpidem [Ambien] 5 mg tablet 5 mg PO BEDTIME PRN (Reason: sleep) Qty: 2 0RF
[2022-06-19] MEDS: LORazepam 1 MG TABLET PO (12:43)
[2022-06-19 12:58] LABS: MANUAL DIFF FLAG NO
[2022-06-19 13:00] LABS: Basophils Percent Auto 0.5 % (0-2); Eosinophils Absolute Auto 0.1 X10*3/uL (0.0-0.4); Eosinophils Percent Auto 1.6 % (0-4); Hematocrit 33.5 % (37.0-47.0); Hemoglobin 10.8 g/dl (12.0-16.0); Imm Gran Abs Auto 0.01 X10*3/uL (0.00-0.03); Imm Gran Pct Auto 0.2 % (0.0-0.4); Lymphocytes Percent Auto 31.9 % (20-40); Mean Corpuscular HGB Conc 32.2 g/dl (31.0-35.0); Mean Corpuscular Hemoglobin 27.3 pg (27.0-33.0); Mean Corpuscular Volume 84.8 fL (80.0-98.0); Mean Platelet Volume 8.6 fL (9.4-12.3); Monocytes Absolute Auto 0.6 X10*3/uL (0.1-1.2); Neutrophils Absolute Auto 3.4 x10*3/uL (2.0-8.3); Neutrophils Percent Auto 55.8 % (45-73); Platelet Count 276 X10*3/uL (160-400); Red Blood Count 3.95 X10*6/uL (4.20-5.50); Red Cell Distribution Width 13.9 % (11.0-16.0); White Blood Count 6.1 X10*3/uL (4.8-10.8)
[2022-06-19 13:02] LABS: Appearance Urine CLEAR; Color Urine YELLOW; Glucose Urine UA NEG (NEG); Leukocyte Esterase Urine 2+ (NEG); Nitrite Urine NEG (NEG); UACC Culture Trigger YES; Urine Blood NEG (NEG); Urine Ketones NEG (NEG); Urine Protein NEG (NEG-TRACE)
[2022-06-19 13:13] LABS: COVID-19 Test Negative (Negative); IDNOW Serial# 16C4AD1C
[2022-06-19 13:19] LABS: Lipase 34 U/L (8-78)
[2022-06-19 13:20] LABS: Renal Epithelial Cells Urine 2+ /LPF; Squamous Epithelial Cell Urine 2+ /LPF
[2022-06-19 13:22] LABS: Bacteria Urine TRACE /LPF; RBC Urine 0 /HPF (0); Troponin-I High Sensitivity < 3.5 ng/L (<3.5-17.0); WBC Clumps Urine NOTED
[2022-06-19 13:24] LABS: INTERNATIONAL NORM RATIO 0.9 (0.9-1.1); Prothrombin Time 10.4 SEC (10.0-13.1)
[2022-06-19 14:16] LABS: Alanine Aminotransferase 17 U/L (0-31); Albumin Level 4.4 g/dL (3.5-5.0); Alkaline Phosphatase 74 U/L (39-117); Anion Gap 14 (12-20); Aspartate Amino Transferase 34 U/L (5-31); Bilirubin Total 0.4 mg/dL (0.0-1.0); Blood Urea Nitrogen 18 mg/dL (9-16); Calcium 9.4 mg/dL (8.4-10.2); Carbon Dioxide 29 mmol/L (22-29); Chloride 98 mmol/L (96-108); Creatinine Clr Calc Pharmacy 43.3; Estimated Glomerular Filt Rate 49; Glucose Random 95 mg/dL (60-115); Potassium 4.3 mmol/L (3.3-5.1); Sodium 137 mmol/L (135-145); Total Protein 7.8 g/dL (6.5-8.0)
== END 2022-06-19 14:10 | disposition home or self-care (01) ==
PROVIDERS: Emergency Provider Emergency Medicine Emergency Medical Services; PCP Internal Medicine Geriatric Medicine
DX: F41.9 Anxiety disorder, unspecified (principal); Z20.822 Contact with and (suspected) exposure to COVID-19; Z79.82 Long term (current) use of aspirin
CPT/HCPCS: 36415; 71045; 80053; 81001; 81003; 83690; 84484; 85025; 85610; 87086; 87147; 87635; 93005; 99283; 99284

== ENCOUNTER 2022-06-24 09:04 | Emergency (ER) | payer OTHER, SELFPAY ==
[2022-06-24 09:07] VITALS: PULSE 77; RESP 19; TEMP 36.6; O2SAT 98; BMI 25.0
== END 2022-06-25 12:11 | disposition left against medical advice (07) ==
LOC: HO.ED 14:26
PROVIDERS: Emergency Provider Emergency Medicine; PCP Internal Medicine Geriatric Medicine
DX: H92.02 Otalgia, left ear (principal)
CPT/HCPCS: 99281

== ENCOUNTER → 2022-07-17 09:28 | Outpatient (BNVA) | payer OTHER, SELFPAY | PROVIDERS: PCP Internal Medicine Geriatric Medicine; Visit Provider Surgery | DX: K59.09 Other constipation (principal) | CPT/HCPCS: 99212 ==

== ENCOUNTER 2022-07-23 02:13 | Emergency (ER) | payer OTHER, SELFPAY ==
[2022-07-23 02:24] VITALS: BP 156/81; PULSE 69; RESP 18; O2SAT 98; BMI 24.5
--- NOTE | 2022-07-23 04:33 | ED.ANXIETY ---
HPI - Anxiety General Chief Complaint: Anxiety Stated Complaint: ANXIETY Time Seen by Provider: 07/23/22 02:16 Source: patient Mode of arrival: ambulatory Limitations: no limitations History of Present Illness HPI narrative: patient is anxious states that she has had recent panic attack MD complaint: anxiety Onset (ago): year(s) Symptoms: palpitations Severity: mild Quality: intermittent Place: home Related Data Home Medications Medication Instructions Recorded Confirmed alprazolam 0.5 mg tablet 0.5 mg PO TID PRN Anxiety 08/09/20 11/21/21 aripiprazole 2 mg tablet 2 mg PO BEDTIME 08/09/20 11/21/21 cholecalciferol (vitamin D3) 25 25 mcg PO BID 08/09/20 11/21/21 mcg (1,000 unit) tablet hydroxyzine HCl 50 mg tablet 50 mg PO TID PRN Anxiety 08/09/20 11/21/21 linaclotide 145 mcg capsule 145 mcg PO DAILY 08/09/20 11/21/21 mirtazapine 45 mg tablet 45 mg PO BEDTIME 08/09/20 11/21/21 multivitamin 1 cap PO DAILY 08/09/20 11/21/21 omeprazole 20 mg tablet,delayed 20 mg PO DAILY 08/09/20 11/21/21 release sertraline 50 mg tablet 50 mg PO BEDTIME 08/09/20 11/21/21 Previous Rx's Medication Instructions Recorded escitalopram oxalate 10 mg tablet 10 mg PO DAILY #30 tabs 09/06/20 acetaminophen 325 mg capsule 325 mg PO QID PRN fever or pain 09/16/20 #30 caps aspirin 81 mg tablet,delayed 81 mg PO BEDTIME #90 tabs 09/28/20 release metoprolol succinate 50 mg 50 mg PO DAILY #90 tabs 09/28/20 tablet,extended release 24 hr menthol 0.44 %-zinc oxide 20.6 % 1 appl topical QID PRN skin 12/13/20 topical ointment (Calmoseptine) irritation #113 grams magnesium citrate 150 ml PO DAILY PRN constipation 12/14/20 #296 mL diphenhydramine HCl 25 mg capsule 25 mg PO BEDTIME insomnia #7 caps 12/25/20 (Benadryl) melatonin 10 mg tablet,extended 10 mg PO .nightly #5 tabs 01/07/21 release cefdinir 300 mg capsule 300 mg PO BID Otitis media 10 days 04/14/21 #20 caps ondansetron HCl 4 mg tablet 4 mg PO Q8H PRN nausea and 04/14/21 (Zofran) vomiting #14 tabs metoprolol succinate 50 mg 50 mg PO DAILY #14 tabs 05/22/21 tablet,extended release 24 hr ciprofloxacin 0.3 %-dexamethasone 4 drp otic (ears) BID 7 days 05/26/21 0.1 % ear drops,suspension (Ciprodex) polyethylene glycol 3350 17 17 g PO DAILY PRN constipation 07/31/21 gram/dose oral powder (Miralax) #238 grams hydrocortisone acetate 25 mg 25 mg [place] BID #12 ea 08/01/21 rectal suppository (Anucort-HC) cefuroxime axetil 500 mg tablet 500 mg PO BID 7 days #14 tabs 09/01/21 meclizine 25 mg tablet 25 mg PO TID PRN dizziness #10 tabs 09/01/21 zolpidem 5 mg tablet (Ambien) 5 mg PO BEDTIME PRN sleep #2 tabs 10/29/21 zolpidem 5 mg tablet (Ambien) 5 mg PO BEDTIME PRN sleep #2 tabs 10/29/21 lisinopril 40 mg tablet 40 mg PO QPM #90 tabs 06/06/22 levofloxacin 500 mg tablet 500 mg PO DAILY 7 days #7 tabs 07/23/22 Allergies Allergy/AdvReac Type Severity Reaction Status Date / Time penicillin G [Penicillin G] Allergy Severe ITCHY/RASH Verified 07/17/22 09:38 Sulfa (Sulfonamide Allergy Severe ITCHY,RASH, Verified 07/17/22 09:38 Antibiotics) rash [Sulfa (Sulfonamides)] trimethoprim [From Bactrim] Allergy Severe HIVES Verified 07/17/22 09:38 penicillin V Allergy Unknown rash Verified 07/17/22 09:38 sulfacetamide Allergy Unknown unknown Verified 07/17/22 09:38 [From Sulfacet-R] sulfur [From Sulfacet-R] Allergy Unknown unknown Verified 07/17/22 09:38 Review of Systems Constitutional: Constitutional: Reports no additional constitutional complaints Eyes: Eyes: Reports no additional eye complaints ENT: Denies dizziness Cardiovascular: Cardiovascular: Reports no additional cardiovascular complaints Respiratory: Respiratory: Reports as per HPI Gastrointestinal: Gastrointestinal: Reports no additional gastrointestinal complaints Genitourinary: Genitourinary: Reports no additional female genitourinary complaints Musculoskeletal: Musculoskeletal: Reports no additional musculoskeletal complaints Integumentary/Breasts: Skin/Breast: Denies rash Neurologic: Reports system reviewed and no additional complaints, except as documented, Denies dizziness and Denies Sensory deficit (Neuro) Psychiatric: Psychiatric: Denies anxiety [facility] Past Medical History Medical History Anxiety Arthritis Bleeding hemorrhoids Chronic constipation Dementia Essential hypertension High blood pressure PAC (premature atrial contraction) PVC (premature ventricular contraction) SVT (supraventricular tachycardia) Vertigo Surgical History No pertinent past surgical history Social History Social History Alcohol intake: never Patient Tobacco Use Status: Never used Tobacco Advance Directives: No Physical Exam Vital Signs: Vital Signs: Last Vital Signs Pulse 69 07/23/22 02:24 Resp 18 07/23/22 02:24 BP 156/81 H 07/23/22 02:24 Pulse Ox 98 07/23/22 02:24 O2 Del Method 07/23/22 02:24 BMI result Body Mass Index 24.5 Const: Other: anxious Nutritional Appearance: average body habitus Orientation/consciousness: oriented to person and patient oriented x3 Limitations: no limitations HEENT: Other: left otitis media Head: Yes normal to inspection General nose exam: Normal external nose present Mouth: Normal oral and palatal mucosa present and oropharynx normal Throat: Yes posterior oropharynx normal Eyes: General: appearance normal, both eyes and all related structures Neck: Other: supple Neck: Yes normal visual inspection Chest: Chest palpation & inspection: normal inspection of the chest Resp: Auscultation: clear to auscultation bilaterally Cardio: Jugular venous distension: no JVD Rate: regular rate Rhythm: regular rhythm Heart sounds: S1 normal heart sound present and S2 normal heart sound present GI: Inspection: Yes normal to inspection Palpation (GI): Soft to palpation, nontender and No hepatosplenomegaly present Auscultation: normal bowel sounds : General: Yes no CVA tenderness Back/Spine/Pelvis: Back: no CVA tenderness Skin: General skin exam: no rashes or lesions noted Neuro: General: oriented to person and patient oriented x3 Cranial nerves: Yes CN's II-XII intact bilaterally Motor exam (neuro): 5/5 motor strength present throughout Sensory Exam: No Sensory deficit (Neuro) Extrem: General: Yes normal to inspection Psych: Appearance: grossly normal Course Reevaluation(s) Reevaluation #1: patient with chronic anxiety, now with left otitis media Time: 04:40 Discharge Plan Discharge Clinical Impression: Generalized anxiety disorder with panic attacks, Otitis media Patient Disposition: Home, Self-Care Instructions: Ear Infection (ED), Anxiety (ED) Prescriptions: New levofloxacin 500 mg tablet 500 mg PO DAILY 7 Days Qty: 7 0RF No Action escitalopram oxalate 10 mg tablet 10 mg PO DAILY Qty: 30 1RF metoprolol succinate 50 mg tablet extended release 24 hr 50 mg PO DAILY Qty: 90 2RF aspirin 81 mg tablet,delayed release (DR/EC) 81 mg PO BEDTIME Qty: 90 2RF polyethylene glycol 3350 [Miralax] 17 gram/dose powder 17 g PO DAILY PRN (Reason: constipation) Qty: 238 0RF lisinopril 40 mg tablet 40 mg PO QPM Qty: 90 3RF acetaminophen 325 mg capsule 325 mg PO QID PRN (Reason: fever or pain) Qty: 30 0RF melatonin 10 mg tablet extended release 10 mg PO .nightly Qty: 5 0RF metoprolol succinate 50 mg tablet extended release 24 hr 50 mg PO DAILY Qty: 14 0RF ciprofloxacin-dexamethasone [Ciprodex] 0.3-0.1 % drops,suspension 4 drp otic (ears) BID 7 Days 0RF alprazolam 0.5 mg Tablet 0.5 mg PO TID PRN (Reason: Anxiety) hydroxyzine HCl 50 mg Tablet 50 mg PO TID PRN (Reason: Anxiety) mirtazapine 45 mg Tablet 45 mg PO BEDTIME multivitamin Capsule 1 cap PO DAILY sertraline 50 mg Tablet 50 mg PO BEDTIME aripiprazole 2 mg Tablet 2 mg PO BEDTIME cholecalciferol (vitamin D3) 25 mcg (1,000 unit) Tablet 25 mcg PO BID omeprazole 20 mg Tablet,Delayed Release (Dr/Ec) 20 mg PO DAILY linaclotide 145 mcg Capsule 145 mcg PO DAILY diphenhydramine HCl [Benadryl] 25 mg capsule 25 mg PO BEDTIME Qty: 7 0RF cefdinir 300 mg capsule 300 mg PO BID 10 Days Qty: 20 0RF ondansetron HCl [Zofran] 4 mg tablet 4 mg PO Q8H PRN (Reason: nausea and vomiting) Qty: 14 0RF cefuroxime axetil 500 mg tablet 500 mg PO BID 7 Days Qty: 14 0RF meclizine 25 mg tablet 25 mg PO TID PRN (Reason: dizziness) Qty: 10 0RF Calmoseptine 0.44-20.6 % ointment 1 appl topical QID PRN (Reason: skin irritation) Qty: 113 0RF magnesium citrate Solution 150 ml PO DAILY PRN (Reason: constipation) Qty: 296 0RF Rx Instructions: take only when needed for constipation hydrocortisone acetate [Anucort-HC] 25 mg suppository 25 mg [place] BID Qty: 12 3RF zolpidem [Ambien] 5 mg tablet 5 mg PO BEDTIME PRN (Reason: sleep) Qty: 2 0RF zolpidem [Ambien] 5 mg tablet 5 mg PO BEDTIME PRN (Reason: sleep) Qty: 2 0RF Referrals: Name,MD Nitin [Primary Care Provider] - 1 week
[2022-07-23] MEDS: levoFLOXacin 500 MG TABLET PO (05:10)
[2022-07-23] MEDS: LORazepam 1 MG TABLET PO (05:10)
== END 2022-07-23 05:39 | disposition home or self-care (01) ==
PROVIDERS: Emergency Provider Emergency Medicine; PCP Internal Medicine Geriatric Medicine
DX: F41.1 Generalized anxiety disorder (principal); F41.0 Panic disorder [episodic paroxysmal anxiety]; H66.92 Otitis media, unspecified, left ear; I10 Essential (primary) hypertension
CPT/HCPCS: 99283

== ENCOUNTER 2022-08-25 04:52 | Emergency (ER) | payer OTHER, SELFPAY ==
--- NOTE | ~2022-08-25 | XR_ITS ---
EXAMINATION: XR CHEST CLINICAL INFORMATION: Fever COMPARISON: 06/19/2022 TECHNIQUE: Frontal view of the chest was obtained. FINDINGS: Lung volumes are symmetric. No focal consolidation is seen. No evidence of pneumothorax, pleural effusion, or pulmonary edema. The cardiomediastinal contour is unremarkable. Degenerative changes are noted in the spine. XR/XR chest 1V IMPRESSION: No acute cardiopulmonary findings.
[2022-08-25 04:58] VITALS: BP 160/80; BP 160/86; PULSE 78; PULSE 83; RESP 18; TEMP 36.8; O2SAT 100; O2SAT 98; BMI 32.4
[2022-08-25 05:02] VITALS: BP 160/86; PULSE 88; RESP 18; TEMP 36.8; O2SAT 98
[2022-08-25 05:09] VITALS: BP 160/86; PULSE 80; RESP 15; TEMP 37.1; O2SAT 99
--- NOTE | 2022-08-25 05:16 | ED_ITS ---
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 Mode of arrival: EMS Limitations: no limitations History of Present Illness HPI Narrative: 76 yo female with hx of anxiety, dementia, depression, PVCs, SVT here with c/o wondering if she has a fever because she just woke up and her cheeks were red and hot MD elicited complaint: other (red cheeks) Onset (ago): hour(s) (2) Exacerbating factors: nothing Relieving factors: nothing Associated symptoms: other (L ear pain) Treatments prior to arrival fever: acetaminophen Related Data Home Medications Medication Instructions Recorded Confirmed alprazolam 0.5 mg tablet 0.5 mg PO TID PRN Anxiety 08/09/20 11/21/21 aripiprazole 2 mg tablet 2 mg PO BEDTIME 08/09/20 11/21/21 cholecalciferol (vitamin D3) 25 25 mcg PO BID 08/09/20 11/21/21 mcg (1,000 unit) tablet hydroxyzine HCl 50 mg tablet 50 mg PO TID PRN Anxiety 08/09/20 11/21/21 linaclotide 145 mcg capsule 145 mcg PO DAILY 08/09/20 11/21/21 mirtazapine 45 mg tablet 45 mg PO BEDTIME 08/09/20 11/21/21 multivitamin 1 cap PO DAILY 08/09/20 11/21/21 omeprazole 20 mg tablet,delayed 20 mg PO DAILY 08/09/20 11/21/21 release sertraline 50 mg tablet 50 mg PO BEDTIME 08/09/20 11/21/21 Previous Rx's Medication Instructions Recorded escitalopram oxalate 10 mg tablet 10 mg PO DAILY #30 tabs 09/06/20 acetaminophen 325 mg capsule 325 mg PO QID PRN fever or pain 09/16/20 #30 caps aspirin 81 mg tablet,delayed 81 mg PO BEDTIME #90 tabs 09/28/20 release metoprolol succinate 50 mg 50 mg PO DAILY #90 tabs 09/28/20 tablet,extended release 24 hr menthol 0.44 %-zinc oxide 20.6 % 1 appl topical QID PRN skin 12/13/20 topical ointment (Calmoseptine) irritation #113 grams magnesium citrate 150 ml PO DAILY PRN constipation 12/14/20 #296 mL diphenhydramine HCl 25 mg capsule 25 mg PO BEDTIME insomnia #7 caps 12/25/20 (Benadryl) melatonin 10 mg tablet,extended 10 mg PO .nightly #5 tabs 01/07/21 release cefdinir 300 mg capsule 300 mg PO BID Otitis media 10 days 04/14/21 #20 caps ondansetron HCl 4 mg tablet 4 mg PO Q8H PRN nausea and 04/14/21 (Zofran) vomiting #14 tabs metoprolol succinate 50 mg 50 mg PO DAILY #14 tabs 05/22/21 tablet,extended release 24 hr ciprofloxacin 0.3 %-dexamethasone 4 drp otic (ears) BID 7 days 05/26/21 0.1 % ear drops,suspension (Ciprodex) polyethylene glycol 3350 17 17 g PO DAILY PRN constipation 07/31/21 gram/dose oral powder (Miralax) #238 grams hydrocortisone acetate 25 mg 25 mg HI BID #12 ea 08/01/21 rectal suppository (Anucort-HC) cefuroxime axetil 500 mg tablet 500 mg PO BID 7 days #14 tabs 09/01/21 meclizine 25 mg tablet 25 mg PO TID PRN dizziness #10 tabs 09/01/21 zolpidem 5 mg tablet (Ambien) 5 mg PO BEDTIME PRN sleep #2 tabs 10/29/21 zolpidem 5 mg tablet (Ambien) 5 mg PO BEDTIME PRN sleep #2 tabs 10/29/21 lisinopril 40 mg tablet 40 mg PO QPM #90 tabs 06/06/22 levofloxacin 500 mg tablet 500 mg PO DAILY 7 days #7 tabs 07/23/22 levofloxacin 500 mg tablet 500 mg PO DAILY #6 tabs 08/25/22 ofloxacin 0.3 % ear drops 10 drp otic (ears) DAILY 7 days #5 08/25/22 mL Allergies Allergy/AdvReac Type Severity Reaction Status Date / Time penicillin G [Penicillin G] Allergy Severe ITCHY/RASH Verified 07/17/22 09:38 Sulfa (Sulfonamide Allergy Severe ITCHY,RASH, Verified 07/17/22 09:38 Antibiotics) rash [Sulfa (Sulfonamides)] trimethoprim [From Bactrim] Allergy Severe HIVES Verified 07/17/22 09:38 penicillin V Allergy Unknown rash Verified 07/17/22 09:38 sulfacetamide Allergy Unknown unknown Verified 07/17/22 09:38 [From Sulfacet-R] sulfur [From Sulfacet-R] Allergy Unknown unknown Verified 07/17/22 09:38 Review of Systems Review of Systems: Constitutional : no Fever, no Chills, no fatigue, no Malaise ENT/Mouth : no sore throat, no runny nose, pos ear pain Eyes: No Discharge Cardiovascular : No Chest Pain, No SOB Respiratory : No Cough, No Sputum Gastrointestinal : No Nausea, No Vomiting, No Diarrhea Genitourinary : No Dysuria, No Urinary Frequency Musculoskeletal : no Myalgia Skin : No rash, no lesions Neuro : No Headache, no dizziness PMFSH Past Medical History Attestation statement: The following information was validated with the patient. Medical History Anxiety Arthritis Bleeding hemorrhoids Chronic constipation Dementia Essential hypertension High blood pressure PAC (premature atrial contraction) PVC (premature ventricular contraction) SVT (supraventricular tachycardia) Vertigo Surgical History No pertinent past surgical history Social History Social History Alcohol intake: never Patient Tobacco Use Status: Never used Tobacco Use of substances other than those prescribed or required for medical reasons: No Advance Directives: No Physical Exam Vital Signs: Vital Signs: Last Vital Signs Temp 98.7 F 08/25/22 05:09 Pulse 80 08/25/22 05:09 Resp 15 08/25/22 05:09 BP 160/86 H 08/25/22 05:09 Pulse Ox 99 08/25/22 05:09 O2 Del Method 08/25/22 05:09 BMI result Body Mass Index 32.4 Appearance: Alert. Oriented X3. No acute distress. Eyes: Pupils equal, round and reactive to light. ENT: Pharynx normal. Cheeks slightly reddened mild, L ear moderate canal swelling with yellow exudates, L AOM no perforation seen bulging of drum and erythema Neck: Normal inspection. Neck supple. CVS: Normal heart rate and rhythm. Pulses normal. Respiratory: No respiratory distress. Breath sounds normal. Abdomen: Soft and non-tender. Skin: Skin warm and dry. Normal skin color. Normal skin turgor. Extremities: No lower extremity edema. No calf ttp Neuro: Oriented X 3. No motor deficit. No sensory deficit. MDM - Fever MDM Narrative Medical decision making narrative: 76 yo female with hx of anxiety, dementia, depression, PVCs, SVT here with c/o L ear pain and red cheeks concerned for fever - at this time states she was given antibiotics 3+ weeks ago but I cannot see that she took them. Will start on levofloxacin oral and ofloxacin drops, PO motrin, UA, COVID swab and CXR> anticipate DC Home. Lab Data Labs: Lab Results 08/25/22 08/25/22 Range/Units 05:12 05:12 Urine Color Yellow Urine Appearance Clear Urine pH 7.5 (5.0-9.0) Ur Specific [place] 1.015 (1.005-1.025) Urine Protein Negative (Neg-Trace) mg/dL Urine Glucose (UA) Negative (Negative) mg/dL Urine Ketones Negative (Negative) mg/dL Urine Blood Negative (Negative) Urine Nitrite Negative (Negative) Ur Leukocyte Esterase Negative (Negative) Influenza Type A (PCR) NEGATIVE (Negative) Influenza Type B (PCR) NEGATIVE (Negative) RSV RNA Qual (PCR) NEGATIVE (Negative) SARS-CoV-2 RNA (RT-PCR) NEGATIVE (Negative) Discharge Plan Discharge Clinical Impression: Otitis media, Otitis externa Patient Disposition: Home, Self-Care Instructions: Otitis Externa (ED), Ear Infection (ED) Additional Instructions: return to ED for any worsening symptoms or concerns please follow up with your ear doctor in a week Regrese a la italo de urgencias por cualquier s?ntoma o inquietud que empeore. Steve un seguimiento con clark otorrinolaring?logo en suzy semana. Prescriptions: New levofloxacin 500 mg tablet 500 mg PO DAILY Qty: 6 0RF Rx Instructions: start on 08/26 ofloxacin 0.3 % drops 10 drp otic (ears) DAILY 7 Days Qty: 5 0RF Rx Instructions: can substitute eye drops if necessary No Action escitalopram oxalate 10 mg tablet 10 mg PO DAILY Qty: 30 1RF metoprolol succinate 50 mg tablet extended release 24 hr 50 mg PO DAILY Qty: 90 2RF aspirin 81 mg tablet,delayed release (DR/EC) 81 mg PO BEDTIME Qty: 90 2RF polyethylene glycol 3350 [Miralax] 17 gram/dose powder 17 g PO DAILY PRN (Reason: constipation) Qty: 238 0RF lisinopril 40 mg tablet 40 mg PO QPM Qty: 90 3RF acetaminophen 325 mg capsule 325 mg PO QID PRN (Reason: fever or pain) Qty: 30 0RF melatonin 10 mg tablet extended release 10 mg PO .nightly Qty: 5 0RF metoprolol succinate 50 mg tablet extended release 24 hr 50 mg PO DAILY Qty: 14 0RF ciprofloxacin-dexamethasone [Ciprodex] 0.3-0.1 % drops,suspension 4 drp otic (ears) BID 7 Days 0RF alprazolam 0.5 mg Tablet 0.5 mg PO TID PRN (Reason: Anxiety) hydroxyzine HCl 50 mg Tablet 50 mg PO TID PRN (Reason: Anxiety) mirtazapine 45 mg Tablet 45 mg PO BEDTIME multivitamin Capsule 1 cap PO DAILY sertraline 50 mg Tablet 50 mg PO BEDTIME aripiprazole 2 mg Tablet 2 mg PO BEDTIME cholecalciferol (vitamin D3) 25 mcg (1,000 unit) Tablet 25 mcg PO BID omeprazole 20 mg Tablet,Delayed Release (Dr/Ec) 20 mg PO DAILY linaclotide 145 mcg Capsule 145 mcg PO DAILY diphenhydramine HCl [Benadryl] 25 mg capsule 25 mg PO BEDTIME Qty: 7 0RF cefdinir 300 mg capsule 300 mg PO BID 10 Days Qty: 20 0RF ondansetron HCl [Zofran] 4 mg tablet 4 mg PO Q8H PRN (Reason: nausea and vomiting) Qty: 14 0RF cefuroxime axetil 500 mg tablet 500 mg PO BID 7 Days Qty: 14 0RF meclizine 25 mg tablet 25 mg PO TID PRN (Reason: dizziness) Qty: 10 0RF levofloxacin 500 mg tablet 500 mg PO DAILY 7 Days Qty: 7 0RF Calmoseptine 0.44-20.6 % ointment 1 appl topical QID PRN (Reason: skin irritation) Qty: 113 0RF magnesium citrate Solution 150 ml PO DAILY PRN (Reason: constipation) Qty: 296 0RF Rx Instructions: take only when needed for constipation hydrocortisone acetate [Anucort-HC] 25 mg suppository 25 mg HI BID Qty: 12 3RF zolpidem [Ambien] 5 mg tablet 5 mg PO BEDTIME PRN (Reason: sleep) Qty: 2 0RF zolpidem [Ambien] 5 mg tablet 5 mg PO BEDTIME PRN (Reason: sleep) Qty: 2 0RF Print Language: Amharic
--- NOTE | 2022-08-25 05:21 | PC.NURSE ---
PT REFUSED GETTING CHANGED OVER INTO GOWN DID NOT WANT TO TAKE OFF FLANNEL SHIRT. YOLANDA PUT OVER CLOTHES RN AWARE
[2022-08-25 05:22] LABS: Appearance Urine Clear; Color Urine Yellow; Glucose Urine UA Negative (Negative); Leukocyte Esterase Urine Negative (Negative); Nitrite Urine Negative (Negative); PH 7.5 (5.0-9.0); Specific Gravity - Urine 1.015 (1.005-1.025); Urine Blood Negative (Negative); Urine Ketones Negative (Negative); Urine Protein Negative (Neg-Trace)
[2022-08-25] MEDS: Ibuprofen 400 MG TABLET PO (05:43)
[2022-08-25] MEDS: levoFLOXacin 500 MG TABLET PO (05:44)
[2022-08-25] MEDS: ALPRAZolam 0.5 MG TABLET PO (05:44)
--- OUTSIDE RECORDS SUMMARY | 2022-08-25 05:44 | XMS_ITS | Continuity of Care Document ---
:1945 Author Organization [facility] Address [address] [place] [address]- Care Team Providers Name Role Phone Name Nitin PIKE Primary Care Physician Encounter [facility] [place] Date(s): 05/18/20 - 05/21/[address] [address]- [facility] Encounter Diagnosis Hyponatremia (Final) - 05/18/20 Discharge Disposition: A-D/C Home Attending Physician: Nomi Abbasi MD Admitting Physician: Lola Ley MD Referring Physician: Not on Staff, Referring MD Allergies, Adverse Reactions, Alerts Substance Reaction Severity Status penicillins Active sulfa drugs Unknown Active Bactrim Active Immunizations Not Given Vaccine Date Status Refusal Reason pneumococcal 13-valent vaccine 05/20/20 Not Given P atient Refuses Medications Aspirin Enteric Coated 81 mg oral delayed release tablet TAKE 1 TABLET BY MOUTH AT BEDTIME Start Date: 05/18/20 Status: OrderedD 1000 IU oral tablet TAKE 1 TABLET BY MOUTH TWICE DAILY IN THE MORNING AND AT BEDTIME Start Date: 05/18/20 Status: OrderedDaily Multiple Vitamins oral tablet TAKE 1 TABLET BY MOUTH EVERY MORNING Start Date: 05/18/20 Status: OrderedDaily Multiple Vitamins oral tablet TAKE 1 TABLET BY MOUTH EVERY MORNING Start Date: 05/18/20 Status: OrderedDocusate Sodium 100 Mg Softgel TAKE 1 CAPSULE BY MOUTH TWICE DAILY Start Date: 05/18/20 Status: OrderedLinzess 145 mcg oral capsule TAKE 1 CAPSULE BY MOUTH EVERY DAY ON AN EMPTY STOMACH 30 MINUTES BEFORE A MEAL. DO NOT BREAK, CRUSH,DISSOLVE OR CHEW Start Date: 05/18/20 Status: OrderedLisinopril Tablet By Mouth, Daily, Maintenance, 12/17/13 14:26:28 Start Date: 12/17/13 Status: OrderedMetoprolol Succinate ER 50 mg oral tablet, extended release TAKE 1 TABLET BY MOUTH EVERY MORNING Start Date: 05/18/20 Status: Orderedomeprazole 40 mg oral enteric coated capsule 1 capsule = 40 mg, By Mouth, Daily, # 30 capsule, 0 Refills, Maintenance, 05/18/20 14:12:00 EDT, EC Capsule Start Date: 05/18/20 Status: Orderedrosuvastatin 20 mg oral tablet TAKE 1 TABLET BY MOUTH AT BEDTIME Start Date: 05/18/20 Status: OrderedXanax 0.5 mg oral tablet 1 tablet = 0.5 mg, By Mouth, 3 times a day, 0 Refills, Maintenance, 12/17/13 14:24:45 Start Date: 12/17/13 Status: Ordered Vital Signs Most recent to oldest 1 2 3 [Reference Range]: Height 173 cm 173 cm 173 cm (05/21/20 5:00 AM) (05/20/20 8:35 PM) (05/20/20 2:3 9 PM) Weight 85.0 kg 85 kg (05/19/20 12:40 AM) (05/19/20 12:35 AM) Oxygen Saturation [94-100 %] 98 % 98 % 99 % (05/21/20 1:00 PM) (05/21/20 5:00 AM) (05/20/20 8:3 5 PM) Pulse Rate [55-90 bpm] 72 bpm 72 bpm 72 bpm (05/21/20 1:00 PM) (05/21/20 8:04 AM) (05/21/20 5:0 0 AM) Body Mass Index [18.5-24.99] 28.4 28.4 *H* *H* (05/19/20 12:40 AM) (05/19/20 12:35 AM) Blood Pressure [90-138/55-84 169/73 mm Hg 181/82 mm Hg 181 /82 mm Hg mm Hg] *H* *H* *H* (05/21/20 1:00 PM) (05/21/20 8:04 AM) (05/21/20 8:0 4 AM) Respiratory Rate [16-30 19 br/min 18 br/min 20 br/mi n br/min] (05/21/20 1:00 PM) (05/21/20 6:40 AM) (05/21/20 5:0 0 AM) Temperature [96.8-100.4 DegF] 97.5 DegF 97.4 DegF 98 .2 DegF (05/21/20 1:00 PM) (05/21/20 5:00 AM) (05/20/20 8:3 5 PM) Mode of Delivery (Oxygen) Room air Room air Room a ir (05/21/20 1:00 PM) (05/21/20 5:00 AM) (05/20/20 8:3 5 PM) Blood pressure sites Arm, right Arm, right Arm, right (05/21/20 1:00 PM) (05/21/20 5:00 AM) (05/20/20 8:3 5 PM) Temperature Route Oral Oral Oral (05/21/20 1:00 PM) (05/21/20 5:00 AM) (05/20/20 8:3 5 PM) Dry Weight 85 kg (05/19/20 12:35 AM) Weight Obtained Via Bed scale Bed scale (05/19/20 12:40 AM) (05/19/20 12:35 AM) Dry Weight Obtained Via Bed scale (05/19/20 12:35 AM) Social History Social History Type Response Smoking Status Never smoker entered on: 11/27/14 Sex
--- OUTSIDE RECORDS SUMMARY | 2022-08-25 05:45 | XMS_ITS | Continuity of Care Document ---
:1945 Author Organization [facility] Address [address] [place] [address]- Care Team Providers Name Role Phone Name Nitin PIKE [id number] Date[facility] - 07/03/[address] [address]- Discharge Disposition: A-D/C Walkout Attending Physician: Not on Staff, Attending MD Admitting Physician: Not on Staff, Admitting MD Referring Physician: Not on Staff, Referring [...] Ordered Vital Signs Most recent to oldest [Reference Range]: 1 Oxygen Saturation [94-100 %] 100 % (07/03/21 12:24 AM) Pulse Rate [55-90 bpm] 66 bpm (07/03/21 12:24 AM) Blood Pressure [90-138/55-84 mm Hg] 171/71 mm Hg *H* (07/03/21 12:24 AM) Respiratory Rate [16-30 br/min] 18 br/min (07/03/21 12:24 AM) Temperature [96.8-100.4 DegF] 98.2 DegF (07/03/21 12:24 AM) Mode of Delivery (Oxygen) Room air (07/03/21 12:24 AM) Blood pressure sites Arm, right (07/03/21 12:24 AM) Temperature Route Oral (07/03/21 12:24 AM) Social History Social History Type Response Smoking Status Never smoker entered on: 11/27/14 Sex
--- OUTSIDE RECORDS SUMMARY | 2022-08-25 05:45 | XMS_ITS | Continuity of Care Document ---
:1945 Author Organization [facility] Address [address] [place] [phone]- Care Team Providers Name Role Phone Name Nitin PIKE [id number] Date[facility]14[facility] - 06[facility]14[facility] [address]- [facility] Discharge Disposition: A-D/C Walkout Attending Physician: Not [...] [Reference Range]: 1 Oxygen Saturation [94-100 %] 98 % (06/14/20 11:35 AM) Pulse Rate [55-90 bpm] 100 bpm *H* (06/14/20 11:35 AM) Blood Pressure [90-138/55-84 mm Hg] 157/73 mm Hg *H* (06/14/20 11:35 AM) Respiratory Rate [16-30 br/min] 18 br/min (06/14/20 11:35 AM) Temperature [96.8-100.4 DegF] 98.3 DegF (06/14/20 11:35 AM) Mode of Delivery (Oxygen) Room air (06/14/20 11:35 AM) Blood pressure sites Arm, left (06/14/20 11:35 AM) Temperature Route Oral (06/14/20 11:35 AM) Social History Social History Type Response Smoking Status Never smoker entered on: 11/27/14 Sex
--- OUTSIDE RECORDS SUMMARY | 2022-08-25 05:45 | XMS_ITS | Continuity of Care Document ---
:1945 Author Organization [facility] Address [address] [place] [phone]- Care Team Providers Name Role Phone Name Nitin PIKE [id number] Date[facility]/11/[facility] - 02/12/[address] [address]- Encounter Diagnosis Hypertension (Final) - 02/12/22 Discharge Disposition: A-D/C Home Attending Physician: Kalpesh Nichols MD Admitting Physician: Kalpesh Nichols MD Referring Physician: Not on Staff, Referring [...] Maintenance, 12/17/13 14:26:28 Start Date: 12/17/13 Status: Orderedmetoprolol 25 mg oral tablet 25 mg, Tablet, By Mouth, Once, STAT, 02/12/22 3:53:00 EDT, Stop date 02/12/22 3:53:00 EDT Start Date: 02/12/22 Stop Date: 02/12/22 Status: CompletedMetoprolol Succinate ER 50 mg oral tablet, extended [...] Vital Signs Most recent to oldest [Reference 1 2 3 Range]: Oxygen Saturation [94-100 %] 98 % 100 % 100 % (02/12/22 5:27 AM) (02/12/22 4:17 AM) (02/12/22 3:45 A M) Pulse Rate [55-90 bpm] 72 bpm 74 bpm 80 bpm (02/12/22 5:27 AM) (02/12/22 4:17 AM) (02/12/22 3:45 A M) Blood Pressure [90-138/55-84 mm 179/78 mm Hg 155/71 mm Hg 162/84 mm Hg Hg] *H* *H* *H* (02/12/22 5:27 AM) (02/12/22 4:17 AM) (02/12/22 3:45 A M) Respiratory Rate [16-30 br/min] 15 br/min 16 br/min 10 br/min *L* (02/12/22 4:17 AM) *L* (02/12/22 5:27 AM) (02/12/22 3:45 AM ) Temperature [96.8-100.4 DegF] 98.1 DegF 99.1 DegF 98 .3 DegF (02/12/22 5:27 AM) (02/12/22 3:45 AM) (02/12/22 12:38 AM) Mode of Delivery (Oxygen) Room air Room air Room a ir (02/12/22 5:27 AM) (02/12/22 4:17 AM) (02/12/22 3:45 A M) Blood pressure sites Arm, right Arm, left Arm, left (02/12/22 5:27 AM) (02/12/22 4:17 AM) (02/12/22 3:45 A M) Temperature Route Oral Oral Oral (02/12/22 5:27 AM) (02/12/22 3:45 AM) (02/12/22 12:38 AM) Social History Social History Type Response Smoking Status Never smoker entered on: 11/27/14 Sex
--- OUTSIDE RECORDS SUMMARY | 2022-08-25 05:45 | XMS_ITS | Continuity of Care Document ---
:1945 Author Organization [facility] Address [address] [place] [address]- Care Team Providers Name Role Phone Name Nitin PIKE [id number] Date[facility]s): 11/26/21 - 11/26/[address] [address]- Encounter Diagnosis Anxiety (Final) - 11/26/21 Discharge Disposition: A-D/C Home Attending Physician: Paul Orozco DO Admitting Physician: Paul Orozco DO Referring Physician: Not on Staff, Referring MD Allergies, Adverse Reactions, Alerts Substance Reaction Severity Status penicillins Active sulfa drugs Unknown Active Bactrim Active Immunizations Not Given Vaccine Date Status Refusal Reason pneumococcal 13-valent vaccine 05/20/20 Not Given P atient Refuses Medications ALPRAZolam 0.25 mg oral tablet 0.25 mg, 1, tablet, By Mouth, 3 times a day, # 3 tablet, Refills 0, Tot. Refills 0, Acute 11/27/21 7:22:00 EST, 11/26/21 7:19:00 EST, Route to Pharmacy Electronically, [facility], Partial fill upon patient request if the prescripti... Start Date: 11/26/21 Stop Date: 11/27/21 Status: OrderedAspirin Enteric Coated 81 mg oral delayed release [...] 12/17/13 14:26:28 Start Date: 12/17/13 Status: Orderedmetoprolol 50 mg oral tablet, extended release 50 mg, XL Tablet, By Mouth, Once, STAT, 11/26/21 7:55:00 EST, Stop date 11/26/21 7:55:00 EST Notes: Do Not Crush. Start Date: 11/26/21 Stop Date: 11/26/21 Status: CompletedMetoprolol Succinate ER 50 mg oral [...] to oldest 1 2 3 [Reference Range]: Oxygen Saturation [94-100 %] 100 % 100 % (11/26/21 8:10 AM) (11/26/21 7:54 AM) Pulse Rate [55-90 bpm] 90 bpm 89 bpm 89 bpm (11/26/21 8:10 AM) (11/26/21 8:10 AM) (11/26/21 7:5 4 AM) Blood Pressure [90-138/55-84 mm 187/88 mm Hg 187/88 mm Hg 187/82 mm Hg Hg] *H* *H* *H* (11/26/21 8:11 AM) (11/26/21 8:10 AM) (11/26/21 8:1 0 AM) Respiratory Rate [16-30 br/min] 16 br/min 20 br/min (11/26/21 8:11 AM) (11/26/21 8:10 AM) Temperature [96.8-100.4 DegF] 98.2 DegF 98.2 DegF (11/26/21 8:11 AM) (11/26/21 8:10 AM) Mode of Delivery (Oxygen) Room air Room air Room a ir (11/26/21 8:11 AM) (11/26/21 8:10 AM) (11/26/21 7:5 4 AM) Temperature Route Oral Oral (11/26/21 8:11 AM) (11/26/21 8:10 AM) Social History Social History Type Response Smoking Status Never smoker entered on: 11/27/14 Sex
--- OUTSIDE RECORDS SUMMARY | 2022-08-25 05:45 | XMS_ITS | Continuity of Care Document ---
:1945 Author Organization [facility] Address [address] [place] [address]- Care Team Providers Name Role Phone Name Nitin PIKE [id number] Date[facility]s): 10/15/21 - 10/16/[address] [address]- Discharge Disposition: A-D/C Walkout Attending Physician: Not [...] 3 [Reference Range]: Oxygen Saturation [94-100 %] 97 % 97 % 98 % (10/16/21 1:16 AM) (10/15/21 11:57 PM) (10/15/21 10 :59 PM) Pulse Rate [55-90 bpm] 80 bpm 73 bpm 84 bpm (10/16/21 1:16 AM) (10/15/21 11:57 PM) (10/15/21 10 :59 PM) Blood Pressure [90-138/55-84 149/79 mm Hg 166/68 mm Hg 165 /79 mm Hg mm Hg] *H* *H* *H* (10/16/21 1:16 AM) (10/15/21 11:57 PM) (10/15/21 10 :59 PM) Respiratory Rate [16-30 18 br/min 18 br/min 18 br/mi n br/min] (10/16/21 1:16 AM) (10/15/21 11:57 PM) (10/15/21 10 :59 PM) Temperature [96.8-100.4 98.8 DegF DegF] (10/15/21 10:59 PM) Mode of Delivery (Oxygen) Room air Room air Room a ir (10/16/21 1:16 AM) (10/15/21 11:57 PM) (10/15/21 10 :59 PM) Temperature Route Oral (10/15/21 10:59 PM) Social History Social History Type Response Smoking Status Never smoker entered on: 11/27/14 Sex
--- OUTSIDE RECORDS SUMMARY | 2022-08-25 05:45 | XMS_ITS | Continuity of Care Document ---
:1945 Author Organization [facility] Address [address] [place] [address]- Care Team Providers Name Role Phone Name Nitin PIKE [id number] Date(s): 06/18/21 - 06/18/[address] [address]- Discharge Disposition: A-D/C Home Attending Physician: Roberto Oropeza MD Admitting Physician: Roberto Oropeza MD Referring Physician: Not on Staff, Referring MD Allergies, Adverse Reactions, Alerts Substance Reaction Severity Status penicillins Active sulfa drugs Unknown Active Bactrim Active Immunizations Not Given Vaccine Date Status Refusal Reason pneumococcal 13-valent vaccine 05/20/20 Not Given P atient Refuses Medications ALPRAZolam 0.5 mg oral tablet 0.5 mg, 1, tablet, By Mouth, 2 times a day, # 1 tablet, Refills 0, Tot. Refills 0, Acute 06/19/21 11:23:00 EDT, 06/18/21 11:23:00 EDT, Route to Pharmacy Electronically, [facility], Partial fill upon patient request if the prescription is... Start Date: 06/18/21 Stop Date: 06/19/21 Status: OrderedAspirin Enteric Coated 81 mg oral [...] [Reference Range]: 1 Oxygen Saturation [94-100 %] 99 % (06/18/21 9:17 AM) Pulse Rate [55-90 bpm] 79 bpm (06/18/21 9:17 AM) Blood Pressure [90-138/55-84 mm Hg] 178/88 mm Hg *H* (06/18/21 9:17 AM) Respiratory Rate [16-30 br/min] 20 br/min (06/18/21 9:17 AM) Temperature [96.8-100.4 DegF] 98.7 DegF (06/18/21 9:17 AM) Blood pressure sites Arm, left (06/18/21 9:17 AM) Temperature Route Oral (06/18/21 9:17 AM) Social History Social History Type Response Smoking Status Never smoker entered on: 11/27/14 Sex
--- OUTSIDE RECORDS SUMMARY | 2022-08-25 05:45 | XMS_ITS | Continuity of Care Document ---
:1945 Author Organization [facility] Address [address] [place] [phone]- Care Team Providers Name Role Phone Name Nitin PIKE [id number] Date[facility] 08/[facility]/20 - 08/05/[address] [address] [facility] Discharge Disposition: A-D/C Walkout Attending Physician: Not [...] [Reference Range]: 1 Oxygen Saturation [94-100 %] 97 % (08/05/20 4:04 AM) Pulse Rate [55-90 bpm] 84 bpm (08/05/20 4:04 AM) Blood Pressure [90-138/55-84 mm Hg] 171/75 mm Hg *H* (08/05/20 4:04 AM) Respiratory Rate [16-30 br/min] 21 br/min (08/05/20 4:04 AM) Temperature [96.8-100.4 DegF] 97.8 DegF (08/05/20 4:04 AM) Temperature Route Oral (08/05/20 4:04 AM) Social History Social History Type Response Smoking Status Never smoker entered on: 11/27/14 Sex
--- OUTSIDE RECORDS SUMMARY | 2022-08-25 05:45 | XMS_ITS | Continuity of Care Document ---
:1945 Author Organization [facility] Address [address] [place] [id number] Care Team Providers Name Role Phone Name Nitin PIKE [id number] Date(s): 07/02/21 - 07/02/[address] [id number]- Discharge Disposition: A-D/C Walkout Attending Physician: Not [...] 1 Oxygen Saturation [94-100 %] 98 % (07/02/21 12:42 AM) Pulse Rate [55-90 bpm] 77 bpm (07/02/21 12:42 AM) Blood Pressure [90-138/55-84 mm Hg] 146/99 mm Hg *H* (07/02/21 12:42 AM) Respiratory Rate [16-30 br/min] 20 br/min (07/02/21 12:42 AM) Temperature [96.8-100.4 DegF] 98.8 DegF (07/02/21 12:42 AM) Mode of Delivery (Oxygen) Room air (07/02/21 12:42 AM) Temperature Route Oral (07/02/21 12:42 AM) Social History Social History Type Response Smoking Status Never smoker entered on: 11/27/14 Sex
[2022-08-25 05:58] LABS: Influenza A PCR NEGATIVE (Negative); Influenza B PCR NEGATIVE (Negative); Resp Syncy Virus RNA Qual PCR NEGATIVE (Negative); SARS COV2 PCR INHOUSE NEGATIVE (Negative)
[2022-08-25 06:35] VITALS: BP 133/72; PULSE 72; RESP 20; TEMP 36.7; O2SAT 96
== END 2022-08-25 06:39 | disposition home or self-care (01) ==
PROVIDERS: Emergency Provider Emergency Medicine; PCP Internal Medicine Geriatric Medicine
DX: H66.92 Otitis media, unspecified, left ear (principal); H60.92 Unspecified otitis externa, left ear; R50.9 Fever, unspecified; F41.9 Anxiety disorder, unspecified; H92.02 Otalgia, left ear; Z20.822 Contact with and (suspected) exposure to COVID-19; Z79.899 Other long term (current) drug therapy
CPT/HCPCS: 0241U; 71045; 81003; 99284

== ENCOUNTER 2022-09-03 05:23 | Emergency (ER) | payer OTHER, SELFPAY ==
[2022-09-03 05:35] VITALS: BP 170/90; PULSE 86; O2SAT 96
--- NOTE | 2022-09-03 05:37 | ED.PSYCH ---
HPI - Psych General Stated Complaint: Anxiety Time Seen by Provider: 09/03/22 05:37 Source: patient Mode of arrival: EMS Limitations: no limitations History of Present Illness HPI Narrative: Previously of anxiety feels very anxious cannot wait for PC who comes at 11:00 o'clock to give her medications came by EMS. Patient been here multiple times for similar situation denies any suicidal ideation hallucinations Related Data Home Medications Medication Instructions Recorded Confirmed alprazolam 0.5 mg tablet 0.5 mg PO TID PRN Anxiety 08/09/20 11/21/21 aripiprazole 2 mg tablet 2 mg PO BEDTIME 08/09/20 11/21/21 cholecalciferol (vitamin D3) 25 25 mcg PO BID 08/09/20 11/21/21 mcg (1,000 unit) tablet hydroxyzine HCl 50 mg tablet 50 mg PO TID PRN Anxiety 08/09/20 11/21/21 linaclotide 145 mcg capsule 145 mcg PO DAILY 08/09/20 11/21/21 mirtazapine 45 mg tablet 45 mg PO BEDTIME 08/09/20 11/21/21 multivitamin 1 cap PO DAILY 08/09/20 11/21/21 omeprazole 20 mg tablet,delayed 20 mg PO DAILY 08/09/20 11/21/21 release sertraline 50 mg tablet 50 mg PO BEDTIME 08/09/20 11/21/21 Previous Rx's Medication Instructions Recorded escitalopram oxalate 10 mg tablet 10 mg PO DAILY #30 tabs 09/06/20 acetaminophen 325 mg capsule 325 mg PO QID PRN fever or pain 09/16/20 #30 caps aspirin 81 mg tablet,delayed 81 mg PO BEDTIME #90 tabs 09/28/20 release metoprolol succinate 50 mg 50 mg PO DAILY #90 tabs 09/28/20 tablet,extended release 24 hr menthol 0.44 %-zinc oxide 20.6 % 1 appl topical QID PRN skin 12/13/20 topical ointment (Calmoseptine) irritation #113 grams magnesium citrate 150 ml PO DAILY PRN constipation 12/14/20 #296 mL diphenhydramine HCl 25 mg capsule 25 mg PO BEDTIME insomnia #7 caps 12/25/20 (Benadryl) melatonin 10 mg tablet,extended 10 mg PO .nightly #5 tabs 01/07/21 release cefdinir 300 mg capsule 300 mg PO BID Otitis media 10 days 04/14/21 #20 caps ondansetron HCl 4 mg tablet 4 mg PO Q8H PRN nausea and 04/14/21 (Zofran) vomiting #14 tabs metoprolol succinate 50 mg 50 mg PO DAILY #14 tabs 05/22/21 tablet,extended release 24 hr ciprofloxacin 0.3 %-dexamethasone 4 drp otic (ears) BID 7 days 05/26/21 0.1 % ear drops,suspension (Ciprodex) polyethylene glycol 3350 17 17 g PO DAILY PRN constipation 07/31/21 gram/dose oral powder (Miralax) #238 grams hydrocortisone acetate 25 mg 25 mg NE BID #12 ea 08/01/21 rectal suppository (Anucort-HC) cefuroxime axetil 500 mg tablet 500 mg PO BID 7 days #14 tabs 09/01/21 meclizine 25 mg tablet 25 mg PO TID PRN dizziness #10 tabs 09/01/21 zolpidem 5 mg tablet (Ambien) 5 mg PO BEDTIME PRN sleep #2 tabs 10/29/21 zolpidem 5 mg tablet (Ambien) 5 mg PO BEDTIME PRN sleep #2 tabs 10/29/21 lisinopril 40 mg tablet 40 mg PO QPM #90 tabs 06/06/22 levofloxacin 500 mg tablet 500 mg PO DAILY 7 days #7 tabs 07/23/22 levofloxacin 500 mg tablet 500 mg PO DAILY #6 tabs 08/25/22 ofloxacin 0.3 % ear drops 10 drp otic (ears) DAILY 7 days #5 08/25/22 mL Allergies Allergy/AdvReac Type Severity Reaction Status Date / Time penicillin G [Penicillin G] Allergy Severe ITCHY/RASH Verified 07/17/22 09:38 Sulfa (Sulfonamide Allergy Severe ITCHY,RASH, Verified 07/17/22 09:38 Antibiotics) rash [Sulfa (Sulfonamides)] trimethoprim [From Bactrim] Allergy Severe HIVES Verified 07/17/22 09:38 penicillin V Allergy Unknown rash Verified 07/17/22 09:38 sulfacetamide Allergy Unknown unknown Verified 07/17/22 09:38 [From Sulfacet-R] sulfur [From Sulfacet-R] Allergy Unknown unknown Verified 07/17/22 09:38 Review of Systems Review of Systems: Yes all other systems are reviewed and are negative [facility] Past Medical History Medical History Anxiety Arthritis Bleeding hemorrhoids Chronic constipation Dementia Essential hypertension High blood pressure PAC (premature atrial contraction) PVC (premature ventricular contraction) SVT (supraventricular tachycardia) Vertigo Surgical History No pertinent past surgical history Social History Social History Alcohol intake: never Patient Tobacco Use Status: Never used Tobacco Physical Exam Vital Signs: Appearance: Alert. Oriented X3. No acute distress. Anxious Eyes: PERRLA, No Nystagmus ENT: Pharynx normal. Oral Mucosa moist Neck: Normal inspection. Neck supple. CVS: Normal heart rate and rhythm. Pulses normal. Respiratory: No respiratory distress. Equal air entry bilateral, Abdomen: Soft and nontender. Bowel sounds are present, Skin: Skin warm and dry. Normal skin color. Normal skin turgor. Extremities: No lower extremity edema. Neuro: Oriented X 3. No motor deficit. MDM - Psych MDM Narrative Medical decision making narrative: Patient with anxiety disorder will give her alprazolam 0.5 mg advised to follow with a therapist Discharge Plan Discharge Clinical Impression: Generalized anxiety disorder with panic attacks Patient Disposition: Home, Self-Care Instructions: Anxiety (ED) Additional Instructions: Taking medication as prescribed and follow-up with PCP/therapist Prescriptions: No Action escitalopram oxalate 10 mg tablet 10 mg PO DAILY Qty: 30 1RF metoprolol succinate 50 mg tablet extended release 24 hr 50 mg PO DAILY Qty: 90 2RF aspirin 81 mg tablet,delayed release (DR/EC) 81 mg PO BEDTIME Qty: 90 2RF polyethylene glycol 3350 [Miralax] 17 gram/dose powder 17 g PO DAILY PRN (Reason: constipation) Qty: 238 0RF lisinopril 40 mg tablet 40 mg PO QPM Qty: 90 3RF acetaminophen 325 mg capsule 325 mg PO QID PRN (Reason: fever or pain) Qty: 30 0RF melatonin 10 mg tablet extended release 10 mg PO .nightly Qty: 5 0RF metoprolol succinate 50 mg tablet extended release 24 hr 50 mg PO DAILY Qty: 14 0RF ciprofloxacin-dexamethasone [Ciprodex] 0.3-0.1 % drops,suspension 4 drp otic (ears) BID 7 Days 0RF alprazolam 0.5 mg Tablet 0.5 mg PO TID PRN (Reason: Anxiety) hydroxyzine HCl 50 mg Tablet 50 mg PO TID PRN (Reason: Anxiety) mirtazapine 45 mg Tablet 45 mg PO BEDTIME multivitamin Capsule 1 cap PO DAILY sertraline 50 mg Tablet 50 mg PO BEDTIME aripiprazole 2 mg Tablet 2 mg PO BEDTIME cholecalciferol (vitamin D3) 25 mcg (1,000 unit) Tablet 25 mcg PO BID omeprazole 20 mg Tablet,Delayed Release (Dr/Ec) 20 mg PO DAILY linaclotide 145 mcg Capsule 145 mcg PO DAILY diphenhydramine HCl [Benadryl] 25 mg capsule 25 mg PO BEDTIME Qty: 7 0RF cefdinir 300 mg capsule 300 mg PO BID 10 Days Qty: 20 0RF ondansetron HCl [Zofran] 4 mg tablet 4 mg PO Q8H PRN (Reason: nausea and vomiting) Qty: 14 0RF cefuroxime axetil 500 mg tablet 500 mg PO BID 7 Days Qty: 14 0RF meclizine 25 mg tablet 25 mg PO TID PRN (Reason: dizziness) Qty: 10 0RF levofloxacin 500 mg tablet 500 mg PO DAILY 7 Days Qty: 7 0RF levofloxacin 500 mg tablet 500 mg PO DAILY Qty: 6 0RF Rx Instructions: start on 08/26 ofloxacin 0.3 % drops 10 drp otic (ears) DAILY 7 Days Qty: 5 0RF Rx Instructions: can substitute eye drops if necessary Calmoseptine 0.44-20.6 % ointment 1 appl topical QID PRN (Reason: skin irritation) Qty: 113 0RF magnesium citrate Solution 150 ml PO DAILY PRN (Reason: constipation) Qty: 296 0RF Rx Instructions: take only when needed for constipation hydrocortisone acetate [Anucort-HC] 25 mg suppository 25 mg NE BID Qty: 12 3RF zolpidem [Ambien] 5 mg tablet 5 mg PO BEDTIME PRN (Reason: sleep) Qty: 2 0RF zolpidem [Ambien] 5 mg tablet 5 mg PO BEDTIME PRN (Reason: sleep) Qty: 2 0RF
[2022-09-03] MEDS: ALPRAZolam 0.5 MG TABLET PO (06:14)
[2022-09-03 06:17] VITALS: BP 163/76; PULSE 76; RESP 18; TEMP 36.8; O2SAT 98; BMI 28.5
[2022-09-03 06:20] VITALS: BP 163/76; PULSE 76; RESP 16; TEMP 37.1; O2SAT 98
[2022-09-03 07:07] VITALS: BP 153/79; PULSE 71; RESP 18; TEMP 36.9; O2SAT 98
== END 2022-09-03 07:08 | disposition home or self-care (01) ==
PROVIDERS: Emergency Provider Internal Medicine; PCP Internal Medicine Geriatric Medicine
DX: F41.1 Generalized anxiety disorder (principal); Z79.899 Other long term (current) drug therapy
CPT/HCPCS: 99283; 99284

== ENCOUNTER 2022-09-04 08:12 | Emergency (ER) | payer OTHER, SELFPAY ==
--- NOTE | ~2022-09-04 | CT_ITS ---
EXAMINATION: CT HEAD WITHOUT CONTRAST CLINICAL INFORMATION: Fall and hit head COMPARISON: None TECHNIQUE: Contiguous axial imaging was performed from the skull base to vertex without intravenous administration of contrast. This CT examination was performed using dose optimization techniques as appropriate, variously including the following: *Automated exposure control *Adjustment of mA and/or kV according to patient size (this includes techniques or standardized protocols for targeted exams where dose is matched to indication/reason for exam; i.e. extremities or head) *Use of iterative reconstruction technique DLP: 743 mGy-cm FINDINGS: No intracranial hemorrhage, extra-axial fluid collections, cranial fractures or significant soft tissue hematomas identified after fall and head strike. No evolving infarct, mass lesion, mass effect or midline shift seen. Vascular calcifications are noted. Intraorbital structures are unremarkable. There is left ethmoid sinus disease. Remaining sinuses and right mastoid are clear. Partial sclerosis left mastoid. CT/CT head/brain wo IV con IMPRESSION: No acute intracranial pathology.
[2022-09-04 08:59] VITALS: BP 154/77; PULSE 79; RESP 18; TEMP 36.6; O2SAT 97; BMI 25.2
--- NOTE | 2022-09-04 10:44 | ED.HEATRA ---
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 Denies symptoms prior to fall. Denies LOC, vision change/loss, nausea, vomiting, CP/SOB, neck/back pain. Denies taking anticoagulation MD Complaint: head injury and fall Onset (ago): day(s) Related Data Home Medications Medication Instructions Recorded Confirmed alprazolam 0.5 mg tablet 0.5 mg PO TID PRN Anxiety 08/09/20 11/21/21 aripiprazole 2 mg tablet 2 mg PO BEDTIME 08/09/20 11/21/21 cholecalciferol (vitamin D3) 25 25 mcg PO BID 08/09/20 11/21/21 mcg (1,000 unit) tablet hydroxyzine HCl 50 mg tablet 50 mg PO TID PRN Anxiety 08/09/20 11/21/21 linaclotide 145 mcg capsule 145 mcg PO DAILY 08/09/20 11/21/21 mirtazapine 45 mg tablet 45 mg PO BEDTIME 08/09/20 11/21/21 multivitamin 1 cap PO DAILY 08/09/20 11/21/21 omeprazole 20 mg tablet,delayed 20 mg PO DAILY 08/09/20 11/21/21 release sertraline 50 mg tablet 50 mg PO BEDTIME 08/09/20 11/21/21 Previous Rx's Medication Instructions Recorded escitalopram oxalate 10 mg tablet 10 mg PO DAILY #30 tabs 09/06/20 acetaminophen 325 mg capsule 325 mg PO QID PRN fever or pain 09/16/20 #30 caps aspirin 81 mg tablet,delayed 81 mg PO BEDTIME #90 tabs 09/28/20 release metoprolol succinate 50 mg 50 mg PO DAILY #90 tabs 09/28/20 tablet,extended release 24 hr menthol 0.44 %-zinc oxide 20.6 % 1 appl topical QID PRN skin 12/13/20 topical ointment (Calmoseptine) irritation #113 grams magnesium citrate 150 ml PO DAILY PRN constipation 12/14/20 #296 mL diphenhydramine HCl 25 mg capsule 25 mg PO BEDTIME insomnia #7 caps 12/25/20 (Benadryl) melatonin 10 mg tablet,extended 10 mg PO .nightly #5 tabs 01/07/21 release cefdinir 300 mg capsule 300 mg PO BID Otitis media 10 days 04/14/21 #20 caps ondansetron HCl 4 mg tablet 4 mg PO Q8H PRN nausea and 04/14/21 (Zofran) vomiting #14 tabs metoprolol succinate 50 mg 50 mg PO DAILY #14 tabs 05/22/21 tablet,extended release 24 hr ciprofloxacin 0.3 %-dexamethasone 4 drp otic (ears) BID 7 days 05/26/21 0.1 % ear drops,suspension (Ciprodex) polyethylene glycol 3350 17 17 g PO DAILY PRN constipation 07/31/21 gram/dose oral powder (Miralax) #238 grams hydrocortisone acetate 25 mg 25 mg [place] BID #12 ea 08/01/21 rectal suppository (Anucort-HC) cefuroxime axetil 500 mg tablet 500 mg PO BID 7 days #14 tabs 09/01/21 meclizine 25 mg tablet 25 mg PO TID PRN dizziness #10 tabs 09/01/21 zolpidem 5 mg tablet (Ambien) 5 mg PO BEDTIME PRN sleep #2 tabs 10/29/21 zolpidem 5 mg tablet (Ambien) 5 mg PO BEDTIME PRN sleep #2 tabs 10/29/21 lisinopril 40 mg tablet 40 mg PO QPM #90 tabs 06/06/22 levofloxacin 500 mg tablet 500 mg PO DAILY 7 days #7 tabs 07/23/22 levofloxacin 500 mg tablet 500 mg PO DAILY #6 tabs 08/25/22 ofloxacin 0.3 % ear drops 10 drp otic (ears) DAILY 7 days #5 08/25/22 mL Allergies Allergy/AdvReac Type Severity Reaction Status Date / Time penicillin G [Penicillin G] Allergy Severe ITCHY/RASH Verified 07/17/22 09:38 Sulfa (Sulfonamide Allergy Severe ITCHY,RASH, Verified 07/17/22 09:38 Antibiotics) rash [Sulfa (Sulfonamides)] trimethoprim [From Bactrim] Allergy Severe HIVES Verified 07/17/22 09:38 penicillin V Allergy Unknown rash Verified 07/17/22 09:38 sulfacetamide Allergy Unknown unknown Verified 07/17/22 09:38 [From Sulfacet-R] sulfur [From Sulfacet-R] Allergy Unknown unknown Verified 07/17/22 09:38 Review of Systems Review of Systems: Constitutional: No Fever, No Chills, No Fatigue, No Malaise ENT/Mouth: No Ear Pain, No Nasal Congestion, No sore throat, No Rhinorrhea, No Swallowing Difficulty Eyes: No Eye Pain, No Swelling, No Redness Cardiovascular: No Chest Pain, No SOB, No Dyspnea on Exertion, No Orthopnea, No Edema Respiratory: No Cough, No Sputum, No Dyspnea Gastrointestinal: No Nausea, No Vomiting, No Diarrhea, No Constipation, No Abdominal pain Genitourinary: No Dysuria, No Urinary Frequency, No Hematuria, No Urinary Incontinence/retention Musculoskeletal: No joint pain, No Myalgias, No Joint Swelling Skin: No Skin Lesions, No rash Neuro: No Weakness, No Numbness, No Paresthesias, No Loss of Consciousness, No Dizziness, + Headache Yes all other systems are reviewed and are negative Constitutional: Constitutional: Reports as per HPI Neurologic: Denies Abnormal speech present [facility] Past Medical History Attestation statement: The following information was validated with the patient. Medical History Anxiety Arthritis Bleeding hemorrhoids Chronic constipation Dementia Essential hypertension High blood pressure PAC (premature atrial contraction) PVC (premature ventricular contraction) SVT (supraventricular tachycardia) Vertigo Surgical History No pertinent past surgical history Social History Social History Alcohol intake: never Patient Tobacco Use Status: Never used Tobacco Advance Directives: No Physical Exam Vital Signs: Vital Signs: Last Vital Signs Temp 97.8 F 09/04/22 08:59 Pulse 79 09/04/22 08:59 Resp 18 09/04/22 08:59 BP 154/77 H 09/04/22 08:59 Pulse Ox 97 09/04/22 08:59 O2 Del Method 09/04/22 08:59 BMI result Body Mass Index 25.2 Const: General: cooperative, healthy appearing and no acute distress Orientation/consciousness: patient oriented x3 Limitations: no limitations HEENT: Head: Yes normal to inspection, Yes atraumatic, No Gomes's sign and No raccoon eyes Ears: hearing grossly normal bilaterally General nose exam: Normal external nose present Face and sinus: Yes normal facial exam Throat: Yes posterior oropharynx normal, Yes tonsils normal and Yes uvula midline Eyes: General: appearance normal, both eyes and all related structures Pupils: Equal, round and reactive pupils present EOM: EOMs intact bilaterally Neck: Other: No midline cervical spinous tenderness Neck: Yes normal visual inspection and Yes no meningeal signs Resp: Effort & Inspection: normal respiratory effort and no respiratory distress Auscultation: clear to auscultation bilaterally Cardio: Rate: regular rate Heart sounds: S1 normal heart sound present and S2 normal heart sound present GI: Inspection: Yes normal to inspection Palpation (GI): Soft to palpation, nontender, no guarding and not rigid : General: Yes no CVA tenderness Back/Spine/Pelvis: Other: No midline thoracic/lumbar spinous tenderness/step-off or deformity Back: no CVA tenderness Skin: Rashes: no rashes Wounds: no wounds Neuro: General: patient oriented x3, gait normal, tone normal, moves all extremities, no meningeal signs, no focal motor deficits and CN's II-XI intact bilaterally Cranial nerves: Yes CN's II-XII intact bilaterally, Yes Equal, round and reactive pupils present and Yes Bilaterally intact EOM present Cognition (Neuro): normal cognition Speech: No Abnormal speech present Gait exam (Neuro): Normal gait present Motor exam (neuro): 5/5 motor strength present throughout Extrem: General: Yes normal to inspection Course Course Course Narrative: -1111--patient states she has another appointment and would like to be discharged. Will sign out AMA > If head CT is abnormal this life underwriter will contact patient 1130--CT head/brain wo IV con IMPRESSION: No acute intracranial pathology. Results discussed with patient including worrisome signs and symptoms and strict return precautions, and when to return to the emergency department. They verbalized understanding and feel safe for discharge at this time. 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 On exam vital signs stable, NAD, nontoxic appearing, no appreciable or palpable skull depression, no midline spinous tenderness throughout, no focal neuro deficits. Concern for ICH vs concussion. Lower suspicion for fracture. Low concern for ACS Plan: Head CT Differential Diagnosis Differential diagnosis: Likely concussion without loss of consciousness, epidural hematoma, closed head injury, subarachnoid hematoma and subdural hematoma Medical Records Attestation: I reviewed the patient's medical records. Lab Data Attestation: I reviewed the patient's lab results. Discharge Plan Discharge Clinical Impression: Closed head injury Patient Disposition: Home, Self-Care Instructions: Head Injury (ED) Additional Instructions: Your head CT is not yet resulted. youre head CT is unremarkable If symptoms are abnormal I will call you. Take Tylenol and Motrin at home as needed for headache. Ice painful area. If headache becomes persistent, unremitting, you develop vision change loss, weakness, nausea or vomiting return to the emergency department. Please follow-up with . Gris tomograf?a computarizada de la jaelyn a?n no myers resultado. la tomograf?a computarizada de la jaelyn no tiene nada especial Si los s?ntomas son anormales, lo llamar?. [place] Tylenol y Motrin en casa seg?n sea necesario para el dolor de jaelyn. Hielo en la angeline dolorosa. Si el dolor de jaelyn se vuelve persistente e incesante, desarrolla p?rdida de visi?n, debilidad, n?useas o v?mitos, regrese al departamento de emergencias. Por favor, germán un seguimiento con el . Prescriptions: No Action escitalopram oxalate 10 mg tablet 10 mg PO DAILY Qty: 30 1RF metoprolol succinate 50 mg tablet extended release 24 hr 50 mg PO DAILY Qty: 90 2RF aspirin 81 mg tablet,delayed release (DR/EC) 81 mg PO BEDTIME Qty: 90 2RF polyethylene glycol 3350 [Miralax] 17 gram/dose powder 17 g PO DAILY PRN (Reason: constipation) Qty: 238 0RF lisinopril 40 mg tablet 40 mg PO QPM Qty: 90 3RF acetaminophen 325 mg capsule 325 mg PO QID PRN (Reason: fever or pain) Qty: 30 0RF melatonin 10 mg tablet extended release 10 mg PO .nightly Qty: 5 0RF metoprolol succinate 50 mg tablet extended release 24 hr 50 mg PO DAILY Qty: 14 0RF ciprofloxacin-dexamethasone [Ciprodex] 0.3-0.1 % drops,suspension 4 drp otic (ears) BID 7 Days 0RF alprazolam 0.5 mg Tablet 0.5 mg PO TID PRN (Reason: Anxiety) hydroxyzine HCl 50 mg Tablet 50 mg PO TID PRN (Reason: Anxiety) mirtazapine 45 mg Tablet 45 mg PO BEDTIME multivitamin Capsule 1 cap PO DAILY sertraline 50 mg Tablet 50 mg PO BEDTIME aripiprazole 2 mg Tablet 2 mg PO BEDTIME cholecalciferol (vitamin D3) 25 mcg (1,000 unit) Tablet 25 mcg PO BID omeprazole 20 mg Tablet,Delayed Release (Dr/Ec) 20 mg PO DAILY linaclotide 145 mcg Capsule 145 mcg PO DAILY diphenhydramine HCl [Benadryl] 25 mg capsule 25 mg PO BEDTIME Qty: 7 0RF cefdinir 300 mg capsule 300 mg PO BID 10 Days Qty: 20 0RF ondansetron HCl [Zofran] 4 mg tablet 4 mg PO Q8H PRN (Reason: nausea and vomiting) Qty: 14 0RF cefuroxime axetil 500 mg tablet 500 mg PO BID 7 Days Qty: 14 0RF meclizine 25 mg tablet 25 mg PO TID PRN (Reason: dizziness) Qty: 10 0RF levofloxacin 500 mg tablet 500 mg PO DAILY 7 Days Qty: 7 0RF levofloxacin 500 mg tablet 500 mg PO DAILY Qty: 6 0RF Rx Instructions: start on 08/26 ofloxacin 0.3 % drops 10 drp otic (ears) DAILY 7 Days Qty: 5 0RF Rx Instructions: can substitute eye drops if necessary Calmoseptine 0.44-20.6 % ointment 1 appl topical QID PRN (Reason: skin irritation) Qty: 113 0RF magnesium citrate Solution 150 ml PO DAILY PRN (Reason: constipation) Qty: 296 0RF Rx Instructions: take only when needed for constipation hydrocortisone acetate [Anucort-HC] 25 mg suppository 25 mg [place] BID Qty: 12 3RF zolpidem [Ambien] 5 mg tablet 5 mg PO BEDTIME PRN (Reason: sleep) Qty: 2 0RF zolpidem [Ambien] 5 mg tablet 5 mg PO BEDTIME PRN (Reason: sleep) Qty: 2 0RF Referrals: Name,MD Nitin [Primary Care Provider] - 3 days Print Language: Maori
== END 2022-09-04 12:19 | disposition home or self-care (01) ==
PROVIDERS: Emergency Provider Emergency Medicine; PCP Internal Medicine Geriatric Medicine
DX: S00.93XA Contusion of unspecified part of head, initial encounter (principal); R51.9 Headache, unspecified; W07.XXXA Fall from chair, initial encounter; Y93.9 Activity, unspecified; Y92.9 Unspecified place or not applicable; Y99.9 Unspecified external cause status; Z79.899 Other long term (current) drug therapy
CPT/HCPCS: 70450; 99283; 99284

== ENCOUNTER 2022-09-19 22:55 | Emergency (ER) | payer OTHER, SELFPAY ==
[2022-09-19 23:25] VITALS: BP 132/74; PULSE 79; RESP 16; TEMP 36.8; O2SAT 97; BMI 28.2
--- OUTSIDE RECORDS SUMMARY | 2022-09-20 00:23 | XMS_ITS ---
:1945 External Reference #[id number] Author Care Team Providers Name Role Phone CHAPO MCCAIN APRN Primary Care Provider [phone] MIKIE EVANS MD Referring Provider [phone] Allergies Code Code System Name Reaction Severity Status Onset 165999 RxNorm Bactrim Hives ? Active ? Rash ? Active ? Penicillins Hives ? Active ? ? Rash ? Active ? Sulfa (Sulfonamide Hives ? Active ? Antibiotics) ? Rash ? Active ? Medications Name Status Start Date Stop Date ? ? alprazolam 0.5 mg tablet Active ? Not whitney ilable azithromycin 250 mg tablet Unknown ? Not a vailable azithromycin 500 mg tablet Unknown ? Not a vailable ciprofloxacin 500 mg tablet Unknown ? Not available dexamethasone sodium phosphate 4 mg/mL injection solution Unknow n ? Not available erythromycin 5 mg/gram (0.5 %) eye ointment Active ? Not available lactulose 10 gram/15 mL oral solution Active ? Not available lisinopril 20 mg-hydrochlorothiazide 25 mg tablet Active ? Not available meclizine 25 mg tablet Active ? Not avail able methylprednisolone 4 mg tablets in a dose pack Active ? Not available Metrogel 1 % topical Unknown ? Not availab le mirtazapine 30 mg tablet Active ? Not whitney ilable omeprazole 20 mg capsule,delayed release Active ? Not available oxycodone-acetaminophen 5 mg-325 mg tablet Unknown ? Not available propranolol ER 120 mg capsule,24 hr,extended release Active ? Not available risperidone 1 mg tablet Active ? Not avai lable sertraline 100 mg tablet Active ? Not whitney ilable simvastatin 40 mg tablet Active ? Not whitney ilable tramadol 50 mg tablet Unknown ? Not availa ble Voltaren 1 % topical gel Active ? Not whitney ilable APLIQUE [employer]A AFECTADA RIZWAN VECES AL MARCELLUS warfarin 5 mg tablet Unknown ? Not availab le Problems Name Status Onset Date Source ? Inflammation of Sacroiliac Joint Active ? History Disorder of Sacrum Active ? History Procedures Date Name Performed by ? ? Hernia Repair Information not avai lable Notes: Umbilical ? Tonsillectomy Information not avai lable Results Lab Results None recorded. Past Encounters None recorded. Social History Tobacco Smoking Status Never Smoker Vaccine List None recorded. Plan of Care Reminders Provider Appointments None recorded. ? ? Lab None recorded. ? ? Referral None recorded. ? ? Procedures None recorded. ? ? Surgeries None recorded. ? ? Imaging None recorded. ? ? Vitals Height Weight BMI Blood Pressure 5 ft 3 in 191 lbs 33.8 kg/m2 124/69 mm[Hg]
== END 2022-09-20 00:50 | disposition left against medical advice (07) ==
PROVIDERS: Emergency Provider Emergency Medicine
DX: K92.1 Melena (principal)
CPT/HCPCS: 99281

== ENCOUNTER 2022-09-20 08:52 | Emergency (ER) | payer OTHER, SELFPAY ==
--- NOTE | ~2022-09-20 | CT_ITS ---
EXAMINATION: CT HEAD W/O IV CONTRAST CT CERVICAL SPINE W/O IV CONTRAST CLINICAL INFORMATION: History of fall with head strike. COMPARISON: Prior CT exams from 05/16/2020, 09/30/2020 and 09/04/2022 TECHNIQUE: Head - Contiguous axial imaging of the head was performed from the skull base to the vertex without the administration of intravenous contrast, and axial images are reconstructed at 2 mm and 5 mm slice thickness. Cervical spine - A volumetric, helical CT acquisition of the cervical spine was obtained without contrast; in addition to the standard set of axial images, multiplanar reformatted images were provided in the coronal and sagittal imaging planes. This CT examination was performed using dose optimization techniques as appropriate, variously including the following: *Automated exposure control *Adjustment of mA and/or kV according to patient size (this includes techniques or standardized protocols for targeted exams where dose is matched to indication/reason for exam; i.e. extremities or head) *Use of iterative reconstruction technique DLP: 1169 mGy-cm (total) FINDINGS: HEAD: No evidence of intracranial hemorrhage, major vascular territory infarction, focal mass effect or midline shift. Chatterjee to white matter differentiation is preserved. No significant parenchymal volume loss. No hydrocephalus. The brainstem and cerebellum are unremarkable. The calvarium is intact. Again noted is opacification of a few bilateral mastoid air cells and opacification of some of the left ethmoid air cells. No air-fluid levels within the visualized paranasal sinuses. Old nondisplaced fracture of nasal bones. No acute intraorbital pathology. Temporomandibular joints are unremarkable. CERVICAL SPINE: The craniocervical junction is normal. The occipital condyles, dens and atlantodental articulation are intact. The vertebral body heights are maintained. No fractures in the anterior or posterior elements. No prevertebral soft tissue swelling. Chronic multilevel facet osteoarthritis and chronic, approximately 0.2 cm of degenerative anterolisthesis of C4 on C5. Chronic moderate disc degenerative change at C5-C6 and mild degenerative change of C6-C7 and C7-T1. 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 The uncovertebral joint hypertrophy causes moderate right neural foraminal stenosis at C5-C6. No hematoma within the neck. Thyroid gland is unremarkable. Old, stable calcified granuloma at right lung apex. CT/CT cervical spine wo IV con IMPRESSION: * No acute intracranial pathology compared to 09/04/2022. * No fracture or traumatic subluxation in the chronically degenerated cervical spine.
[2022-09-20 08:57] VITALS: BP 163/77; PULSE 77; RESP 18; TEMP 36.1; O2SAT 100; BMI 24.7
--- NOTE | 2022-09-20 09:15 | ED_ITS ---
HPI - General Adult General Chief complaint: General Medical Stated complaint: Head inj/Blood in stool? Time Seen by Provider: 09/20/22 09:14 Source: patient and old records reviewed Mode of arrival: ambulatory Limitations: no limitations History of Present Illness HPI narrative: 76 yo female with history of anxiety with panic attacks, PVCs, SVT, HTN, hemorrhoids, vertigo who presents to the ER for evaluation of a fall with head strike this morning as well as possibly bleeding hemorrhoids. She states she has a history of hemorrhoids in the past and has an appointment with Dr. Stafford as coming up. When she wiped her bottom yesterday she had some blood x1. No overt bright red blood per rectum. No constipation. No abdominal pain. She states today she tripped and fell, hitting her forehead. She did not lose consciousness. She states her [employer] was late so she came to the ER for evaluation. Asking for anxiety medications MD complaint: Fall with head strike and hemorrhoids Location: head and buttocks Radiation: non-radiation Severity: mild Relieving factors: none Exacerbating factors: none Associated symptoms: other (Anxiety) Treatments prior to arrival: none Related Data Home Medications Medication Instructions Recorded Confirmed alprazolam 0.5 mg tablet 0.5 mg PO TID PRN Anxiety 08/09/20 11/21/21 aripiprazole 2 mg tablet 2 mg PO BEDTIME 08/09/20 11/21/21 cholecalciferol (vitamin D3) 25 25 mcg PO BID 08/09/20 11/21/21 mcg (1,000 unit) tablet hydroxyzine HCl 50 mg tablet 50 mg PO TID PRN Anxiety 08/09/20 11/21/21 linaclotide 145 mcg capsule 145 mcg PO DAILY 08/09/20 11/21/21 mirtazapine 45 mg tablet 45 mg PO BEDTIME 08/09/20 11/21/21 multivitamin 1 cap PO DAILY 08/09/20 11/21/21 omeprazole 20 mg tablet,delayed 20 mg PO DAILY 08/09/20 11/21/21 release sertraline 50 mg tablet 50 mg PO BEDTIME 08/09/20 11/21/21 Previous Rx's Medication Instructions Recorded escitalopram oxalate 10 mg tablet 10 mg PO DAILY #30 tabs 09/06/20 acetaminophen 325 mg capsule 325 mg PO QID PRN fever or pain 09/16/20 #30 caps aspirin 81 mg tablet,delayed 81 mg PO BEDTIME #90 tabs 09/28/20 release metoprolol succinate 50 mg 50 mg PO DAILY #90 tabs 09/28/20 tablet,extended release 24 hr menthol 0.44 %-zinc oxide 20.6 % 1 appl topical QID PRN skin 12/13/20 topical ointment (Calmoseptine) irritation #113 grams magnesium citrate 150 ml PO DAILY PRN constipation 12/14/20 #296 mL diphenhydramine HCl 25 mg capsule 25 mg PO BEDTIME insomnia #7 caps 12/25/20 (Benadryl) melatonin 10 mg tablet,extended 10 mg PO .nightly #5 tabs 01/07/21 release cefdinir 300 mg capsule 300 mg PO BID Otitis media 10 days 04/14/21 #20 caps ondansetron HCl 4 mg tablet 4 mg PO Q8H PRN nausea and 04/14/21 (Zofran) vomiting #14 tabs metoprolol succinate 50 mg 50 mg PO DAILY #14 tabs 05/22/21 tablet,extended release 24 hr ciprofloxacin 0.3 %-dexamethasone 4 drp otic (ears) BID 7 days 05/26/21 0.1 % ear drops,suspension (Ciprodex) polyethylene glycol 3350 17 17 g PO DAILY PRN constipation 07/31/21 gram/dose oral powder (Miralax) #238 grams hydrocortisone acetate 25 mg 25 mg [place] BID #12 ea 08/01/21 rectal suppository (Anucort-HC) cefuroxime axetil 500 mg tablet 500 mg PO BID 7 days #14 tabs 09/01/21 meclizine 25 mg tablet 25 mg PO TID PRN dizziness #10 tabs 09/01/21 zolpidem 5 mg tablet (Ambien) 5 mg PO BEDTIME PRN sleep #2 tabs 10/29/21 zolpidem 5 mg tablet (Ambien) 5 mg PO BEDTIME PRN sleep #2 tabs 10/29/21 lisinopril 40 mg tablet 40 mg PO QPM #90 tabs 06/06/22 levofloxacin 500 mg tablet 500 mg PO DAILY 7 days #7 tabs 07/23/22 levofloxacin 500 mg tablet 500 mg PO DAILY #6 tabs 08/25/22 ofloxacin 0.3 % ear drops 10 drp otic (ears) DAILY 7 days #5 08/25/22 mL hydrocortisone 2.5 % topical cream 1 appl NH BEDTIME PRN hemorrhoids 09/20/22 with perineal applicator #30 grams Allergies Allergy/AdvReac Type Severity Reaction Status Date / Time penicillin G [Penicillin G] Allergy Severe ITCHY/RASH Verified 07/17/22 09:38 Sulfa (Sulfonamide Allergy Severe ITCHY,RASH, Verified 07/17/22 09:38 Antibiotics) rash [Sulfa (Sulfonamides)] trimethoprim [From Bactrim] Allergy Severe HIVES Verified 07/17/22 09:38 penicillin V Allergy Unknown rash Verified 07/17/22 09:38 sulfacetamide Allergy Unknown unknown Verified 07/17/22 09:38 [From Sulfacet-R] sulfur [From Sulfacet-R] Allergy Unknown unknown Verified 07/17/22 09:38 Review of Systems Review of Systems: Constitutional: No Fever, No Chills Cardiovascular: No Chest Pain, No SOB, No Orthopnea, No Edema Respiratory: No Cough, No Sputum, No Wheezing, No dyspnea Gastrointestinal: No Nausea, No Vomiting, No Diarrhea, No abdominal Pain, No Hematochezia, No Melena Genitourinary: No Dysuria, No Urinary Frequency, No Hematuria Musculoskeletal: No joint pain, No Myalgias Skin: No Skin Lesions, No rash Neuro: No Weakness, No Numbness, No Dizziness, + Headache Psych: + Anxiety/Panic, No Depression Heme/Lymph: No Bruising, No Lymphadenopathy PMFSH Past Medical History Medical History Anxiety Arthritis Bleeding hemorrhoids Chronic constipation Dementia Essential hypertension High blood pressure PAC (premature atrial contraction) PVC (premature ventricular contraction) SVT (supraventricular tachycardia) Vertigo Surgical History No pertinent past surgical history Social History Social History Alcohol intake: never Patient Tobacco Use Status: Never used Tobacco Smoked in Last 30 Days: No Use of substances other than those prescribed or required for medical reasons: No Advance Directives: Yes Advance Directives Information Provided: Yes Advance Directives on File: No Physical Exam ED Vital Signs: Vital Signs - 24 hr 09/20/22 08:57 Temperature 97 F Pulse Rate 77 Respiratory Rate 18 Blood Pressure 163/77 H Pulse Oximetry 100 Oxygen Delivery Method Room Air BMI result Body Mass Index 24.7 Appearance: Alert. Oriented X3. No acute distress. Head: forehead with a small 2cm area of erythema and tenderness on the right side, no other areas of traumatic injuries Eyes: Pupils equal, round and reactive to light. ENT: Pharynx normal. Neck: Normal inspection. Neck supple. No midline tenderness CVS: Normal heart rate and rhythm. Pulses normal. Respiratory: No respiratory distress. Breath sounds normal. Abdomen: Soft and nontender. +BS x4. SHERRIE: nonbleeding, nonthrombosed visible external hemorrhoid Skin: Skin warm and dry. Normal skin color. Normal skin turgor. No rashes. Extremities: No lower extremity edema. Neuro: Oriented X 3. No motor deficit. No sensory deficit. Pacing and anxious. Course Course Course Narrative: 76-year-old female presents to the ER for evaluation of a fall with hitting her head this morning, no LOC. She is not on anticoagulation. She also reports 1 episode of blood when she wiped yesterday after having a bowel movement. History of hemorrhoids and plan to follow-up with Dr. Khan for this soon. On examination there is 1 visible non bleeding external hemorrhoid, nontender. Her abdomen is soft. She is neurologically intact with a small abrasion to her forehead from her fall. Will get CT scans for further evaluation. Reevaluation(s) Reevaluation #1: CT of the head and neck are normal. She is anxious asking for medication. She has her anxiolytics in the a lock box with her PCP at home, will plan to discharge to her PCP can administer her medications appropriately. She is stable for discharge home. Discharge Plan Discharge Clinical Impression: Hemorrhoids, Fall Patient Disposition: Home, Self-Care Instructions: Hemorrhoids (ED), Fall Prevention for Older Adults (ED) Additional Instructions: Your CT scans were normal. Use the prescribed medication as needed for hemorrhoids. Follow-up with Dr. Khan for this. Follow-up with your primary care doctor. Take all of your prescribed anxiety medications as directed. If you develop new or worsening symptoms call 911 or come back to the ER for further evaluation. Prescriptions: New hydrocortisone 2.5 % cream with perineal applicator 1 appl NH BEDTIME PRN (Reason: hemorrhoids) Qty: 30 0RF No Action escitalopram oxalate 10 mg tablet 10 mg PO DAILY Qty: 30 1RF metoprolol succinate 50 mg tablet extended release 24 hr 50 mg PO DAILY Qty: 90 2RF aspirin 81 mg tablet,delayed release (DR/EC) 81 mg PO BEDTIME Qty: 90 2RF polyethylene glycol 3350 [Miralax] 17 gram/dose powder 17 g PO DAILY PRN (Reason: constipation) Qty: 238 0RF lisinopril 40 mg tablet 40 mg PO QPM Qty: 90 3RF acetaminophen 325 mg capsule 325 mg PO QID PRN (Reason: fever or pain) Qty: 30 0RF melatonin 10 mg tablet extended release 10 mg PO .nightly Qty: 5 0RF metoprolol succinate 50 mg tablet extended release 24 hr 50 mg PO DAILY Qty: 14 0RF ciprofloxacin-dexamethasone [Ciprodex] 0.3-0.1 % drops,suspension 4 drp otic (ears) BID 7 Days 0RF alprazolam 0.5 mg Tablet 0.5 mg PO TID PRN (Reason: Anxiety) hydroxyzine HCl 50 mg Tablet 50 mg PO TID PRN (Reason: Anxiety) mirtazapine 45 mg Tablet 45 mg PO BEDTIME multivitamin Capsule 1 cap PO DAILY sertraline 50 mg Tablet 50 mg PO BEDTIME aripiprazole 2 mg Tablet 2 mg PO BEDTIME cholecalciferol (vitamin D3) 25 mcg (1,000 unit) Tablet 25 mcg PO BID omeprazole 20 mg Tablet,Delayed Release (Dr/Ec) 20 mg PO DAILY linaclotide 145 mcg Capsule 145 mcg PO DAILY diphenhydramine HCl [Benadryl] 25 mg capsule 25 mg PO BEDTIME Qty: 7 0RF cefdinir 300 mg capsule 300 mg PO BID 10 Days Qty: 20 0RF ondansetron HCl [Zofran] 4 mg tablet 4 mg PO Q8H PRN (Reason: nausea and vomiting) Qty: 14 0RF cefuroxime axetil 500 mg tablet 500 mg PO BID 7 Days Qty: 14 0RF meclizine 25 mg tablet 25 mg PO TID PRN (Reason: dizziness) Qty: 10 0RF levofloxacin 500 mg tablet 500 mg PO DAILY 7 Days Qty: 7 0RF levofloxacin 500 mg tablet 500 mg PO DAILY Qty: 6 0RF Rx Instructions: start on 08/26 ofloxacin 0.3 % drops 10 drp otic (ears) DAILY 7 Days Qty: 5 0RF Rx Instructions: can substitute eye drops if necessary Calmoseptine 0.44-20.6 % ointment 1 appl topical QID PRN (Reason: skin irritation) Qty: 113 0RF magnesium citrate Solution 150 ml PO DAILY PRN (Reason: constipation) Qty: 296 0RF Rx Instructions: take only when needed for constipation hydrocortisone acetate [Anucort-HC] 25 mg suppository 25 mg NH BID Qty: 12 3RF zolpidem [Ambien] 5 mg tablet 5 mg PO BEDTIME PRN (Reason: sleep) Qty: 2 0RF zolpidem [Ambien] 5 mg tablet 5 mg PO BEDTIME PRN (Reason: sleep) Qty: 2 0RF
--- NOTE | 2022-09-20 09:23 | PC.NURSE ---
patient a&ox3, pt has abrasion to rt forhead, denies loc, pt denies pain/discomfort, call within reach, will continue to monitor.
--- NOTE | 2022-09-20 10:19 | PC.NURSE ---
provider aware pt requesting medication for anxiety will continue to monitor
== END 2022-09-20 10:41 | disposition home or self-care (01) ==
PROVIDERS: Emergency Provider Emergency Medicine; PCP Internal Medicine Geriatric Medicine
DX: R51.9 Headache, unspecified (principal); M54.2 Cervicalgia; K64.9 Unspecified hemorrhoids
CPT/HCPCS: 70450; 72125; 99284

== ENCOUNTER 2022-10-09 12:10 | Outpatient (REF) | payer OTHER, SELFPAY ==
--- NOTE | ~2022-10-09 | MR_ITS ---
EXAMINATION: MR BRAIN WITHOUT AND WITH CONTRAST CLINICAL INFORMATION: Left ear tinnitus COMPARISON: MR brain with and without contrast 02/09/2013, CT head without contrast 09/20/2022 TECHNIQUE: Multiplanar multisequence MR imaging of the brain was obtained without and following the administration of 7.5 mL Gadavist intravenous contrast. FINDINGS: The 7th and 8th cranial nerve complexes are symmetric in course, caliber, and enhancement characteristics. Major inner ear structures including the cochlea, semicircular canals, and vestibule are symmetric in morphology and demonstrate normal CSF signal. No enhancing intracanalicular or cerebellopontine angle mass lesion is visualized. There is no acute infarct on diffusion-weighted imaging. There is no intracranial hemorrhage on iron-sensitive imaging. No extra-axial collection or mass effect/herniation. Scattered periventricular and deep white matter T2 FLAIR hyperintensities consistent with mild underlying microangiopathy. Largest lesion in the left frontal white matter is stable. No hydrocephalus. The ventricles are normal in morphology and size. No abnormal parenchymal or extra-axial enhancement. The midline structures are normal. The cerebellar tonsils are normally positioned. The craniocervical junction is normal. Marrow signal is within normal limits. The visualized soft tissues are without significant abnormality. Bilateral mastoid fluid. Partial left ethmoid sinus opacification. MR/MR head/brain wo/w con IMPRESSION: 1. No evidence of retrocochlear pathology. 2. Bilateral mastoid fluid.
== END 2022-10-09 12:11 | disposition home or self-care (01) ==
LOC: HO.MRI 12:10
PROVIDERS: Visit Provider Family Medicine
DX: H93.12 Tinnitus, left ear (principal)
CPT/HCPCS: 70553; A9585

== ENCOUNTER → 2022-10-16 09:13 | Outpatient (BNVA) | payer OTHER, SELFPAY | PROVIDERS: PCP Internal Medicine Geriatric Medicine; Referring Provider Internal Medicine Geriatric Medicine; Visit Provider Surgery | DX: K64.8 Other hemorrhoids (principal); K64.4 Residual hemorrhoidal skin tags; K59.09 Other constipation | CPT/HCPCS: 46600; 99212 ==

== ENCOUNTER 2022-10-28 08:41 | Emergency (ER) | payer OTHER, SELFPAY ==
[2022-10-28 08:50] VITALS: BP 111/67; PULSE 74; RESP 18; TEMP 36.9; O2SAT 98; BMI 25.8
--- NOTE | 2022-10-28 10:37 | ED.EAR ---
HPI - Ear Problem General Chief complaint: Ear Problems Stated complaint: ear pain Time Seen by Provider: 10/28/22 09:59 Source: patient Mode of arrival: ambulatory Limitations: language barrier History of Present Illness HPI Narrative: 77-year-old primarily Tajik-speaking female past medical history of general anxiety disorder with panic attacks, hypertension, and chronic ear pain presents emergency department today with complaints of right ear pain for several days which she is using Tylenol for management of pain with moderate effect. Her last dose of Tylenol was early this morning per patient. She denies any changes in hearing or drainage from the ear. She denies any recent illness, sick contacts, fever, chills, shortness of breath, chest pain. MD Complaint: ear pain Location: right ear Duration: constant Severity: mild Relieving factors: nothing Exacerbating factors: nothing Discharge from ear: no Treatment prior to arrival: none Related Data Home Medications Medication Instructions Recorded Confirmed alprazolam 0.5 mg tablet 0.5 mg PO TID PRN Anxiety 08/09/20 10/16/22 aripiprazole 2 mg tablet 2 mg PO BEDTIME 08/09/20 10/16/22 cholecalciferol (vitamin D3) 25 25 mcg PO BID 08/09/20 10/16/22 mcg (1,000 unit) tablet hydroxyzine HCl 50 mg tablet 50 mg PO TID PRN Anxiety 08/09/20 10/16/22 linaclotide 145 mcg capsule 145 mcg PO DAILY 08/09/20 10/16/22 mirtazapine 45 mg tablet 45 mg PO BEDTIME 08/09/20 10/16/22 multivitamin 1 cap PO DAILY 08/09/20 10/16/22 omeprazole 20 mg tablet,delayed 20 mg PO DAILY 08/09/20 10/16/22 release sertraline 50 mg tablet 50 mg PO BEDTIME 08/09/20 10/16/22 Previous Rx's Medication Instructions Recorded escitalopram oxalate 10 mg tablet 10 mg PO DAILY #30 tabs 09/06/20 acetaminophen 325 mg capsule 325 mg PO QID PRN fever or pain 09/16/20 #30 caps aspirin 81 mg tablet,delayed 81 mg PO BEDTIME #90 tabs 09/28/20 release metoprolol succinate 50 mg 50 mg PO DAILY #90 tabs 09/28/20 tablet,extended release 24 hr menthol 0.44 %-zinc oxide 20.6 % 1 appl topical QID PRN skin 12/13/20 topical ointment (Calmoseptine) irritation #113 grams magnesium citrate 150 ml PO DAILY PRN constipation 12/14/20 #296 mL diphenhydramine HCl 25 mg capsule 25 mg PO BEDTIME insomnia #7 caps 12/25/20 (Benadryl) melatonin 10 mg tablet,extended 10 mg PO .nightly #5 tabs 01/07/21 release cefdinir 300 mg capsule 300 mg PO BID Otitis media 10 days 04/14/21 #20 caps ondansetron HCl 4 mg tablet 4 mg PO Q8H PRN nausea and 04/14/21 (Zofran) vomiting #14 tabs metoprolol succinate 50 mg 50 mg PO DAILY #14 tabs 05/22/21 tablet,extended release 24 hr ciprofloxacin 0.3 %-dexamethasone 4 drp otic (ears) BID 7 days 05/26/21 0.1 % ear drops,suspension (Ciprodex) polyethylene glycol 3350 17 17 g PO DAILY PRN constipation 07/31/21 gram/dose oral powder (Miralax) #238 grams hydrocortisone acetate 25 mg 25 mg [place] BID #12 ea 08/01/21 rectal suppository (Anucort-HC) cefuroxime axetil 500 mg tablet 500 mg PO BID 7 days #14 tabs 09/01/21 meclizine 25 mg tablet 25 mg PO TID PRN dizziness #10 tabs 09/01/21 zolpidem 5 mg tablet (Ambien) 5 mg PO BEDTIME PRN sleep #2 tabs 10/29/21 zolpidem 5 mg tablet (Ambien) 5 mg PO BEDTIME PRN sleep #2 tabs 10/29/21 lisinopril 40 mg tablet 40 mg PO QPM #90 tabs 06/06/22 levofloxacin 500 mg tablet 500 mg PO DAILY 7 days #7 tabs 07/23/22 levofloxacin 500 mg tablet 500 mg PO DAILY #6 tabs 08/25/22 ofloxacin 0.3 % ear drops 10 drp otic (ears) DAILY 7 days #5 08/25/22 mL hydrocortisone 2.5 % topical cream 1 appl AZ BEDTIME PRN hemorrhoids 09/20/22 with perineal applicator #30 grams Allergies Allergy/AdvReac Type Severity Reaction Status Date / Time penicillin G [Penicillin G] Allergy Severe ITCHY/RASH Verified 10/16/22 09:19 Sulfa (Sulfonamide Allergy Severe ITCHY,RASH, Verified 10/16/22 09:19 Antibiotics) rash [Sulfa (Sulfonamides)] trimethoprim [From Bactrim] Allergy Severe HIVES Verified 10/16/22 09:19 penicillin V Allergy Unknown rash Verified 10/16/22 09:19 sulfacetamide Allergy Unknown unknown Verified 10/16/22 09:19 [From Sulfacet-R] sulfur [From Sulfacet-R] Allergy Unknown unknown Verified 10/16/22 09:19 Review of Systems Review of Systems: In addition to documented HPI above, the additional ROS was obtained: Constitutional: No Weight loss, No Fever, No Chills ENT/Mouth: No Nasal Congestion, No Sinus Pain, No Hoarseness, No sore throat, No Rhinorrhea, No Swallowing Difficulty Cardiovascular: No Chest Pain, No SOB Respiratory: No Cough, No Sputum, No Wheezing Gastrointestinal: No Nausea, No Vomiting, No Diarrhea, No Constipation, No Abdominal pain Musculoskeletal: No joint pain, No Myalgias, No Joint Swelling Skin: No Skin Lesions, No rash Neuro: No Weakness, No Numbness, No Paresthesias Yes all other systems are reviewed and are negative FORMERLY [facility], 1928–1983 Past Medical History Attestation statement: The following information was validated with the patient. Source: old records reviewed Medical History Anxiety Arthritis Bleeding hemorrhoids Chronic constipation Dementia Essential hypertension High blood pressure PAC (premature atrial contraction) PVC (premature ventricular contraction) SVT (supraventricular tachycardia) Vertigo Surgical History No pertinent past surgical history Social History Social History Alcohol intake: never Patient Tobacco Use Status: Never used Tobacco Advance Directives: No Advance Directives Information Provided: Yes Physical Exam Vital Signs: Vital Signs: Last Vital Signs Temp 98.5 F 10/28/22 08:50 Pulse 74 10/28/22 08:50 Resp 18 10/28/22 08:50 BP 111/67 10/28/22 08:50 Pulse Ox 98 10/28/22 08:50 O2 Del Method 10/28/22 08:50 BMI result Body Mass Index 25.8 Const: General: cooperative, alert and awake Nutritional Appearance: average body habitus Orientation/consciousness: patient oriented x3 Limitations: language barrier HEENT: Head: Yes normal to inspection, Yes normocephalic and Yes atraumatic Ears: hearing grossly normal bilaterally, external ears normal, TM normal on the right (large amount cerumen present, able to fully visualize TM) and TM normal on the left General nose exam: Normal external nose present Face and sinus: Yes normal facial exam and Yes face symmetric Mouth: Normal oral and palatal mucosa present Eyes: General: appearance normal, both eyes and all related structures Visual West: normal visual west by confrontation Alignment and Position: alignment normal Periorbital: periorbital findings normal Eyelids: Yes eyelids normal Conjunctivae: conjunctivae normal Sclerae: sclerae normal Corneas: corneas normal Pupils: Equal, round and reactive pupils present EOM: EOMs intact bilaterally Neck: Neck: Yes normal visual inspection and Yes full ROM Chest: Chest palpation & inspection: normal inspection of the chest Resp: Effort & Inspection: normal respiratory effort and not labored Auscultation: clear to auscultation bilaterally, no crackles, no rhonchi and no wheezes Cardio: Rate: regular rate Rhythm: regular rhythm Skin: General skin exam: no rashes or lesions noted Neuro: General: patient oriented x3, gait normal, tone normal and moves all extremities Cranial nerves: Yes Equal, round and reactive pupils present Extrem: General: Yes normal to inspection, Yes full ROM and Yes capillary refill normal Psych: Appearance: grossly normal Mental Status: mental status grossly normal Speech and movement: Normal speech and movement present Affect: Animated affect present Attitude: cooperative Thought process: Normal thought process present Thought content: Normal thought content present Medical Decision Making Medical Decision Making MDM Narrative: 77-year-old primarily Tajik-speaking female past medical history of general anxiety disorder with panic attacks, hypertension, and chronic ear pain presents emergency department today with complaints of right ear pain for several days which she is using Tylenol for management of pain with moderate effect. Physical exam no signs of otitis media or otitis externa. Large amount of cerumen noted in left ear. Patient educated to use [id number] ear drops for wax removal. HPI, PE, and plan discussed with patient with no unanswered questions at this time. Educated to return to the emergency department for changes in hearing, drainage from the ear, increased pain, or any other emergent symptoms are concerning. Recommended follow-up with a primary care provider for further treatment and management. Discharge Plan Discharge Clinical Impression: Ear pain Patient Disposition: Home, Self-Care Instructions: Carbamide Peroxide (Into the ear), Earache (ED) Additional Instructions: Can use [id number] Debrox to remove the earwax. Prescriptions: No Action escitalopram oxalate 10 mg tablet 10 mg PO DAILY Qty: 30 1RF metoprolol succinate 50 mg tablet extended release 24 hr 50 mg PO DAILY Qty: 90 2RF aspirin 81 mg tablet,delayed release (DR/EC) 81 mg PO BEDTIME Qty: 90 2RF polyethylene glycol 3350 [Miralax] 17 gram/dose powder 17 g PO DAILY PRN (Reason: constipation) Qty: 238 0RF lisinopril 40 mg tablet 40 mg PO QPM Qty: 90 3RF acetaminophen 325 mg capsule 325 mg PO QID PRN (Reason: fever or pain) Qty: 30 0RF melatonin 10 mg tablet extended release 10 mg PO .nightly Qty: 5 0RF metoprolol succinate 50 mg tablet extended release 24 hr 50 mg PO DAILY Qty: 14 0RF ciprofloxacin-dexamethasone [Ciprodex] 0.3-0.1 % drops,suspension 4 drp otic (ears) BID 7 Days 0RF alprazolam 0.5 mg Tablet 0.5 mg PO TID PRN (Reason: Anxiety) hydroxyzine HCl 50 mg Tablet 50 mg PO TID PRN (Reason: Anxiety) mirtazapine 45 mg Tablet 45 mg PO BEDTIME multivitamin Capsule 1 cap PO DAILY sertraline 50 mg Tablet 50 mg PO BEDTIME aripiprazole 2 mg Tablet 2 mg PO BEDTIME cholecalciferol (vitamin D3) 25 mcg (1,000 unit) Tablet 25 mcg PO BID omeprazole 20 mg Tablet,Delayed Release (Dr/Ec) 20 mg PO DAILY linaclotide 145 mcg Capsule 145 mcg PO DAILY diphenhydramine HCl [Benadryl] 25 mg capsule 25 mg PO BEDTIME Qty: 7 0RF cefdinir 300 mg capsule 300 mg PO BID 10 Days Qty: 20 0RF ondansetron HCl [Zofran] 4 mg tablet 4 mg PO Q8H PRN (Reason: nausea and vomiting) Qty: 14 0RF cefuroxime axetil 500 mg tablet 500 mg PO BID 7 Days Qty: 14 0RF meclizine 25 mg tablet 25 mg PO TID PRN (Reason: dizziness) Qty: 10 0RF levofloxacin 500 mg tablet 500 mg PO DAILY 7 Days Qty: 7 0RF levofloxacin 500 mg tablet 500 mg PO DAILY Qty: 6 0RF Rx Instructions: start on 08/26 ofloxacin 0.3 % drops 10 drp otic (ears) DAILY 7 Days Qty: 5 0RF Rx Instructions: can substitute eye drops if necessary hydrocortisone 2.5 % cream with perineal applicator 1 appl [place] BEDTIME PRN (Reason: hemorrhoids) Qty: 30 0RF Calmoseptine 0.44-20.6 % ointment 1 appl topical QID PRN (Reason: skin irritation) Qty: 113 0RF magnesium citrate Solution 150 ml PO DAILY PRN (Reason: constipation) Qty: 296 0RF Rx Instructions: take only when needed for constipation hydrocortisone acetate [Anucort-HC] 25 mg suppository 25 mg [place] BID Qty: 12 3RF zolpidem [Ambien] 5 mg tablet 5 mg PO BEDTIME PRN (Reason: sleep) Qty: 2 0RF zolpidem [Ambien] 5 mg tablet 5 mg PO BEDTIME PRN (Reason: sleep) Qty: 2 0RF Referrals: Name,MD Nitin [Primary Care Provider] - Interventions: ED Discharge Assessment Last Done: 10/28/22 10:35 Discharge Date/Time: 10/28/22 10:35 Print Language: Tajik
== END 2022-10-28 10:35 | disposition home or self-care (01) ==
PROVIDERS: Emergency Provider Emergency Medicine; PCP Internal Medicine Geriatric Medicine
DX: H92.01 Otalgia, right ear (principal); Z79.899 Other long term (current) drug therapy
CPT/HCPCS: 99282; 99283

== ENCOUNTER 2022-11-25 08:17 | Emergency (ER) | payer OTHER, SELFPAY ==
--- NOTE | 2022-11-25 | ECG_ITS ---
Test Reason : NAUSEA Blood Pressure : / mmHG Vent. Rate : 076 BPM Atrial Rate : 076 BPM P-R Int : 170 ms QRS Dur : 102 ms QT Int : 374 ms P-R-T Axes : 047 -27 053 degrees QTc Int : 420 ms Normal sinus rhythm with sinus arrhythmia Moderate voltage criteria for LVH, may be normal variant ( R in aVL , Maycol product ) Borderline ECG When compared with ECG of 19-JUN-2022 11:45, No significant change was found Referred By: Generic ED Physician Electronically Signed By:KATRINA PARSONS MD
[2022-11-25 08:39] VITALS: BP 168/82; PULSE 78; RESP 18; TEMP 36.9; O2SAT 97; BMI 25.0
[2022-11-25 09:02] LABS: MANUAL DIFF FLAG NO
[2022-11-25 09:03] LABS: Basophils Absolute Auto 0.1 X10*3/uL (0.0-0.2); Basophils Percent Auto 0.8 % (0-2); Eosinophils Absolute Auto 0.1 X10*3/uL (0.0-0.4); Eosinophils Percent Auto 1.1 % (0-4); Hematocrit 34.6 % (37.0-47.0); Hemoglobin 11.7 g/dl (12.0-16.0); Imm Gran Abs Auto 0.01 X10*3/uL (0.00-0.03); Imm Gran Pct Auto 0.1 % (0.0-0.4); Lymphocytes Absolute Auto 2.4 X10*3/uL (1.2-4.9); Lymphocytes Percent Auto 31.8 % (20-40); Mean Corpuscular HGB Conc 33.8 g/dl (31.0-35.0); Mean Corpuscular Hemoglobin 27.9 pg (27.0-33.0); Mean Corpuscular Volume 82.4 fL (80.0-98.0); Mean Platelet Volume 9.3 fL (9.4-12.3); Monocytes Absolute Auto 0.7 X10*3/uL (0.1-1.2); Neutrophils Absolute Auto 4.3 x10*3/uL (2.0-8.3); Neutrophils Percent Auto 57.2 % (45-73); Platelet Count 305 X10*3/uL (160-400); Red Cell Distribution Width 14.2 % (11.0-16.0); White Blood Count 7.6 X10*3/uL (4.8-10.8)
--- NOTE | 2022-11-25 09:18 | ED_ITS ---
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 Patient reports should be able to get it tomorrow. She last picked up 7 days on November 18 confirmed on [employer]. Patient reports when she does have her Xanax her blood pressure gets elevated because of her nerves. No chest pain, difficulty breathing, headache, vomiting, vision changes. Related Data Home Medications Medication Instructions Recorded Confirmed alprazolam 0.5 mg tablet 0.5 mg PO TID PRN Anxiety 08/09/20 10/16/22 aripiprazole 2 mg tablet 2 mg PO BEDTIME 08/09/20 10/16/22 cholecalciferol (vitamin D3) 25 25 mcg PO BID 08/09/20 10/16/22 mcg (1,000 unit) tablet hydroxyzine HCl 50 mg tablet 50 mg PO TID PRN Anxiety 08/09/20 10/16/22 linaclotide 145 mcg capsule 145 mcg PO DAILY 08/09/20 10/16/22 mirtazapine 45 mg tablet 45 mg PO BEDTIME 08/09/20 10/16/22 multivitamin 1 cap PO DAILY 08/09/20 10/16/22 omeprazole 20 mg tablet,delayed 20 mg PO DAILY 08/09/20 10/16/22 release sertraline 50 mg tablet 50 mg PO BEDTIME 08/09/20 10/16/22 Previous Rx's Medication Instructions Recorded escitalopram oxalate 10 mg tablet 10 mg PO DAILY #30 tabs 09/06/20 acetaminophen 325 mg capsule 325 mg PO QID PRN fever or pain 09/16/20 #30 caps aspirin 81 mg tablet,delayed 81 mg PO BEDTIME #90 tabs 09/28/20 release metoprolol succinate 50 mg 50 mg PO DAILY #90 tabs 09/28/20 tablet,extended release 24 hr menthol 0.44 %-zinc oxide 20.6 % 1 appl topical QID PRN skin 12/13/20 topical ointment (Calmoseptine) irritation #113 grams magnesium citrate 150 ml PO DAILY PRN constipation 12/14/20 #296 mL diphenhydramine HCl 25 mg capsule 25 mg PO BEDTIME insomnia #7 caps 12/25/20 (Benadryl) melatonin 10 mg tablet,extended 10 mg PO .nightly #5 tabs 01/07/21 release cefdinir 300 mg capsule 300 mg PO BID Otitis media 10 days 04/14/21 #20 caps ondansetron HCl 4 mg tablet 4 mg PO Q8H PRN nausea and 04/14/21 (Zofran) vomiting #14 tabs metoprolol succinate 50 mg 50 mg PO DAILY #14 tabs 05/22/21 tablet,extended release 24 hr ciprofloxacin 0.3 %-dexamethasone 4 drp otic (ears) BID 7 days 05/26/21 0.1 % ear drops,suspension (Ciprodex) polyethylene glycol 3350 17 17 g PO DAILY PRN constipation 07/31/21 gram/dose oral powder (Miralax) #238 grams hydrocortisone acetate 25 mg 25 mg ND BID #12 ea 08/01/21 rectal suppository (Anucort-HC) cefuroxime axetil 500 mg tablet 500 mg PO BID 7 days #14 tabs 09/01/21 meclizine 25 mg tablet 25 mg PO TID PRN dizziness #10 tabs 09/01/21 zolpidem 5 mg tablet (Ambien) 5 mg PO BEDTIME PRN sleep #2 tabs 10/29/21 zolpidem 5 mg tablet (Ambien) 5 mg PO BEDTIME PRN sleep #2 tabs 10/29/21 lisinopril 40 mg tablet 40 mg PO QPM #90 tabs 06/06/22 levofloxacin 500 mg tablet 500 mg PO DAILY 7 days #7 tabs 07/23/22 levofloxacin 500 mg tablet 500 mg PO DAILY #6 tabs 08/25/22 ofloxacin 0.3 % ear drops 10 drp otic (ears) DAILY 7 days #5 08/25/22 mL hydrocortisone 2.5 % topical cream 1 appl ND BEDTIME PRN hemorrhoids 09/20/22 with perineal applicator #30 grams Allergies Allergy/AdvReac Type Severity Reaction Status Date / Time penicillin G [Penicillin G] Allergy Severe ITCHY/RASH Verified 10/16/22 09:19 Sulfa (Sulfonamide Allergy Severe ITCHY,RASH, Verified 10/16/22 09:19 Antibiotics) rash [Sulfa (Sulfonamides)] trimethoprim [From Bactrim] Allergy Severe HIVES Verified 10/16/22 09:19 penicillin V Allergy Unknown rash Verified 10/16/22 09:19 sulfacetamide Allergy Unknown unknown Verified 10/16/22 09:19 [From Sulfacet-R] sulfur [From Sulfacet-R] Allergy Unknown unknown Verified 10/16/22 09:19 Review of Systems Review of Systems: Yes all other systems are reviewed and are negative Constitutional: Constitutional: Reports no additional constitutional complaints, Denies body ache(s), Denies chills, Denies fever(s), Denies headache(s) and Denies weakness Eyes: Eyes: Reports no additional eye complaints and Denies change in vision ENT: Reports system reviewed and no additional complaints, except as documented, Denies dizziness, Denies headache(s), Denies nasal congestion, Denies nasal discharge and Denies neck pain Cardiovascular: Cardiovascular: Reports no additional cardiovascular complaints, Denies chest pain, Denies leg edema and Denies dyspnea Respiratory: Respiratory: Reports no additional respiratory complaints, Denies cough and Denies dyspnea Gastrointestinal: Gastrointestinal: Reports no additional gastrointestinal complaints, Denies abdominal pain, Denies diarrhea, Denies nausea and Denies vomiting Genitourinary: Genitourinary: Reports no additional female genitourinary complaints and Denies urinary incontinence Musculoskeletal: Musculoskeletal: Reports no additional musculoskeletal complaints, Denies back pain, Denies arthralgias, Denies joint swelling, Denies neck pain, Denies numbness and Denies tingling Integumentary/Breasts: Skin/Breast: Reports system reviewed and no additional complaints, except as docu and Denies rash Neurologic: Reports system reviewed and no additional complaints, except as documented, Denies Abnormal speech present, Denies dizziness, Denies headache(s), Denies numbness, Denies tingling and Denies weakness Psychiatric: Psychiatric: Reports anxiety PMFSH Past Medical History Attestation statement: The following information was validated with the patient. Source: old records reviewed and nursing notes reviewed Medical History Anxiety Arthritis Bleeding hemorrhoids Chronic constipation Dementia Essential hypertension High blood pressure PAC (premature atrial contraction) PVC (premature ventricular contraction) SVT (supraventricular tachycardia) Vertigo Surgical History No pertinent past surgical history Social History Social History Alcohol intake: never Patient Tobacco Use Status: Never used Tobacco Advance Directives: No Advance Directives Information Provided: No Physical Exam Vital Signs: Vital Signs: Last Vital Signs Temp 98.5 F 11/25/22 08:39 Pulse 78 11/25/22 08:39 Resp 18 11/25/22 08:39 BP 168/82 H 11/25/22 08:39 Pulse Ox 97 11/25/22 08:39 O2 Del Method 11/25/22 08:39 BMI result Body Mass Index 25.0 Const: General: cooperative, healthy appearing, comfortable and no acute distress Orientation/consciousness: patient oriented x3 Limitations: no limitations HEENT: Head: Yes normal to inspection Ears: hearing grossly normal bilaterally General nose exam: Normal external nose present Face and sinus: Yes normal facial exam Mouth: Normal oral and palatal mucosa present Throat: Yes posterior oropharynx normal Eyes: General: appearance normal, both eyes and all related structures Pupils: Equal, round and reactive pupils present Neck: Neck: Yes normal visual inspection Chest: Chest palpation & inspection: normal inspection of the chest Resp: Effort & Inspection: normal respiratory effort Auscultation: clear to auscultation bilaterally Cardio: Rate: regular rate Rhythm: regular rhythm Peripheral pulses: Per ipheral pulses 2+ throughout GI: Inspection: Yes normal to inspection Palpation (GI): Soft to palpation and nontender Auscultation: normal bowel sounds Back/Spine/Pelvis: Thoracic/Lumbar Spine: thoracic and lumbar spine normal to inspection Skin: General skin exam: no rashes or lesions noted Neuro: General: patient oriented x3, no focal motor deficits and normal sensation to monofilament Cranial nerves: Yes Equal, round and reactive pupils present Cognition (Neuro): normal cognition Speech: No Abnormal speech present Gait exam (Neuro): Normal gait present Motor exam (neuro): 5/5 motor strength present throughout Extrem: General: Yes normal to inspection Course Course Course Narrative: Labs and EKG are unremarkable. Patient was given 0.5 mg of Xanax. Plan for discharge home with follow-up with her psychiatrist. Reviewed worrisome signs and symptoms of when to return to the emergency room. Comfortable plan for discharge home. Medical Decision Making Medical Decision Making [facility] Narrative: 77-year-old female with a history of anxiety here with complaints of feeling anxious which she tells me contributes to raising her blood pressure. Ran out of her Xanax. Can pick it up tomorrow. 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 Will obtain labs, EKG. Anticipate discharge Differential Diagnosis Differential Diagnoses: The differential diagnosis associated with the p resentation includes ACS, electrolyte abnormality Lab Data [facility] Lab Attestation statement: I reviewed the patient's lab results. 11/25/22 08:57 11/25/22 08:57 Labs: Lab Results 11/25/22 11/25/22 11/25/22 Range/Units 08:57 08:57 08:57 WBC 7.6 (4.8-10.8) X10*3/uL RBC 4.20 (4.20-5.50) X10*6/uL Hgb 11.7 L (12.0-16.0) g/dl Hct 34.6 L (37.0-47.0) % MCV 82.4 (80.0-98.0) fL MCH 27.9 (27.0-33.0) pg MCHC 33.8 (31.0-35.0) g/dl RDW 14.2 (11.0-16.0) % Plt Count 305 (160-400) X10*3/uL MPV 9.3 L (9.4-12.3) fL Immature Gran % (Auto) 0.1 (0.0-0.4) % Neut % (Auto) 57.2 (45-73) % Lymph % (Auto) 31.8 (20-40) % Weber % (Auto) 9.0 (2-11) % Eos % (Auto) 1.1 (0-4) % Baso % (Auto) 0.8 (0-2) % Lymph # (Auto) 2.4 (1.2-4.9) X10*3/uL Weber # (Auto) 0.7 (0.1-1.2) X10*3/uL Eos # (Auto) 0.1 (0.0-0.4) X10*3/uL Baso # (Auto) 0.1 (0.0-0.2) X10*3/uL Abs Immat Gran (auto) 0.01 (0.00-0.03) X10*3/uL Absolute Neuts (auto) 4.3 (2.0-8.3) x10*3/uL Absolute Nucleated RBC 0.000 (0.0-0.012) X10*3/uL Nucleated RBC % (auto) 0.0 (0.0-0.2) /100WBC Sodium 134 L (135-145) mmol/L Potassium 4.1 (3.3-5.1) mmol/L Chloride 100 (96-108) mmol/L Carbon Dioxide 24 (22-29) mmol/L Anion Gap 14 (12-20) BUN 23 H (9-16) mg/dL Creatinine 1.05 (0.5-1.4) mg/dL Estim Creat Clear Calc 42.2 Estimated GFR 51 Random Glucose 95 (60-115) mg/dL Calcium 9.3 (8.4-10.2) mg/dL Total Bilirubin 0.5 (0.0-1.0) mg/dL AST 25 (5-31) U/L ALT 14 (0-31) U/L Alkaline Phosphatase 69 (39-117) U/L Troponin I High Sens < 3.5 (<3.5-17.0) ng/L Total Protein 7.8 (6.5-8.0) g/dL Albumin 4.3 (3.5-5.0) g/dL Independent Interpretation I performed an independent interpretation of an: EKG (I independently reviewed the EKG which shows normal sinus rhythm with sinus rhythm with rate of 76, normal ND, normal QRS, normal QT) Discharge Plan Discharge Clinical Impression: Acute anxiety Patient Disposition: Home, Self-Care Instructions: Anxiety (ED) Additional Instructions: You were given Xanax today Your blood work and EKG are normal Please call your psychiatrist tomorrow for your refill for your Xanax Prescriptions: No Action escitalopram oxalate 10 mg tablet 10 mg PO DAILY Qty: 30 1RF metoprolol succinate 50 mg tablet extended release 24 hr 50 mg PO DAILY Qty: 90 2RF aspirin 81 mg tablet,delayed release (DR/EC) 81 mg PO BEDTIME Qty: 90 2RF polyethylene glycol 3350 [Miralax] 17 gram/dose powder 17 g PO DAILY PRN (Reason: constipation) Qty: 238 0RF lisinopril 40 mg tablet 40 mg PO QPM Qty: 90 3RF acetaminophen 325 mg capsule 325 mg PO QID PRN (Reason: fever or pain) Qty: 30 0RF melatonin 10 mg tablet extended release 10 mg PO .nightly Qty: 5 0RF metoprolol succinate 50 mg tablet extended release 24 hr 50 mg PO DAILY Qty: 14 0RF ciprofloxacin-dexamethasone [Ciprodex] 0.3-0.1 % drops,suspension 4 drp otic (ears) BID 7 Days 0RF alprazolam 0.5 mg Tablet 0.5 mg PO TID PRN (Reason: Anxiety) hydroxyzine HCl 50 mg Tablet 50 mg PO TID PRN (Reason: Anxiety) mirtazapine 45 mg Tablet 45 mg PO BEDTIME multivitamin Capsule 1 cap PO DAILY sertraline 50 mg Tablet 50 mg PO BEDTIME aripiprazole 2 mg Tablet 2 mg PO BEDTIME cholecalciferol (vitamin D3) 25 mcg (1,000 unit) Tablet 25 mcg PO BID omeprazole 20 mg Tablet,Delayed Release (Dr/Ec) 20 mg PO DAILY linaclotide 145 mcg Capsule 145 mcg PO DAILY diphenhydramine HCl [Benadryl] 25 mg capsule 25 mg PO BEDTIME Qty: 7 0RF cefdinir 300 mg capsule 300 mg PO BID 10 Days Qty: 20 0RF ondansetron HCl [Zofran] 4 mg tablet 4 mg PO Q8H PRN (Reason: nausea and vomiting) Qty: 14 0RF cefuroxime axetil 500 mg tablet 500 mg PO BID 7 Days Qty: 14 0RF meclizine 25 mg tablet 25 mg PO TID PRN (Reason: dizziness) Qty: 10 0RF levofloxacin 500 mg tablet 500 mg PO DAILY 7 Days Qty: 7 0RF levofloxacin 500 mg tablet 500 mg PO DAILY Qty: 6 0RF Rx Instructions: start on 08/26 ofloxacin 0.3 % drops 10 drp otic (ears) DAILY 7 Days Qty: 5 0RF Rx Instructions: can substitute eye drops if necessary hydrocortisone 2.5 % cream with perineal applicator 1 appl ND BEDTIME PRN (Reason: hemorrhoids) Qty: 30 0RF Calmoseptine 0.44-20.6 % ointment 1 appl topical QID PRN (Reason: skin irritation) Qty: 113 0RF magnesium citrate Solution 150 ml PO DAILY PRN (Reason: constipation) Qty: 296 0RF Rx Instructions: take only when needed for constipation hydrocortisone acetate [Anucort-HC] 25 mg suppository 25 mg ND BID Qty: 12 3RF zolpidem [Ambien] 5 mg tablet 5 mg PO BEDTIME PRN (Reason: sleep) Qty: 2 0RF zolpidem [Ambien] 5 mg tablet 5 mg PO BEDTIME PRN (Reason: sleep) Qty: 2 0RF Referrals: Name,MD Nitin [Primary Care Provider] - 1 week ( NEEDED)
[2022-11-25 09:24] LABS: Troponin-I High Sensitivity < 3.5 ng/L (<3.5-17.0)
[2022-11-25 09:25] LABS: Alanine Aminotransferase 14 U/L (0-31); Albumin Level 4.3 g/dL (3.5-5.0); Alkaline Phosphatase 69 U/L (39-117); Anion Gap 14 (12-20); Aspartate Amino Transferase 25 U/L (5-31); Bilirubin Total 0.5 mg/dL (0.0-1.0); Blood Urea Nitrogen 23 mg/dL (9-16); Calcium 9.3 mg/dL (8.4-10.2); Carbon Dioxide 24 mmol/L (22-29); Chloride 100 mmol/L (96-108); Creatinine Clr Calc Pharmacy 42.2; Estimated Glomerular Filt Rate 51; Glucose Random 95 mg/dL (60-115); Potassium 4.1 mmol/L (3.3-5.1); Sodium 134 mmol/L (135-145); Total Protein 7.8 g/dL (6.5-8.0)
[2022-11-25] MEDS: ALPRAZolam 0.5 MG TABLET PO (09:38)
== END 2022-11-25 09:40 | disposition home or self-care (01) ==
PROVIDERS: Emergency Provider Emergency Medicine; PCP Internal Medicine Geriatric Medicine
DX: F41.9 Anxiety disorder, unspecified (principal); I10 Essential (primary) hypertension; Z79.899 Other long term (current) drug therapy
CPT/HCPCS: 36415; 80053; 84484; 85025; 93005; 99283

== ENCOUNTER 2022-12-06 09:15 | Emergency (ER) | payer OTHER, SELFPAY ==
[2022-12-06 09:24] VITALS: BP 133/74; PULSE 77; RESP 18; TEMP 36.4; O2SAT 98; BMI 24.3
--- NOTE | 2022-12-06 09:48 | ED_ITS ---
HPI - GI Bleed General Chief complaint: General Medical Stated complaint: Rectal bleeding Time Seen by Provider: 12/06/22 09:32 Source: patient Mode of arrival: ambulatory Limitations: no limitations History of Present Illness HPI Narrative: 77 yo female with hx of anxiety, dementia, depression, PVCs, SVT and hemorrhoids presenting to the ER with complaints of 1 episode of bright red blood on the toilet when she wiped this morning after straining to have a bowel movement. She reports that she is using Colace because she is straining and is providing mild symptomatic relief. She also reports that she would like a Xanax before she is discharged because she left her house before her nurse could come. I explained to her that if her nurse is going to be giving her her Xanax and we will not give her 1 here due to we do not want to double dose her with her Xanax. She denies any dizziness, headaches, fevers, chest pain or shortness of breath, nausea or vomiting, dyspnea on exertion orthopnea, abdominal pain, back pain, flank pain, dysuria, hematuria, abnormal vaginal discharge, black stools, blood mixed in the stools or any other symptoms complaints or concerns at this time. Reports she recently had a colonoscopy and was told everything was normal. complaint: blood on toilet paper Onset (ago): minute(s) ([employer] prevention [employer]) Pain Consistency: intermittent Severity: mild (one episode) Relieving factors: none Exacerbating factors: bowel movement Context: hemorrhoids Associated symptoms: denies other symptoms Treatments Prior to Arrival: OTC meds Related Data Home Medications Medication Instructions Recorded Confirmed alprazolam 0.5 mg tablet 0.5 mg PO TID PRN Anxiety 08/09/20 10/16/22 aripiprazole 2 mg tablet 2 mg PO BEDTIME 08/09/20 10/16/22 cholecalciferol (vitamin D3) 25 25 mcg PO BID 08/09/20 10/16/22 mcg (1,000 unit) tablet hydroxyzine HCl 50 mg tablet 50 mg PO TID PRN Anxiety 08/09/20 10/16/22 linaclotide 145 mcg capsule 145 mcg PO DAILY 08/09/20 10/16/22 mirtazapine 45 mg tablet 45 mg PO BEDTIME 08/09/20 10/16/22 multivitamin 1 cap PO DAILY 08/09/20 10/16/22 omeprazole 20 mg tablet,delayed 20 mg PO DAILY 08/09/20 10/16/22 release sertraline 50 mg tablet 50 mg PO BEDTIME 08/09/20 10/16/22 Previous Rx's Medication Instructions Recorded escitalopram oxalate 10 mg tablet 10 mg PO DAILY #30 tabs 09/06/20 acetaminophen 325 mg capsule 325 mg PO QID PRN fever or pain 09/16/20 #30 caps aspirin 81 mg tablet,delayed 81 mg PO BEDTIME #90 tabs 09/28/20 release metoprolol succinate 50 mg 50 mg PO DAILY #90 tabs 09/28/20 tablet,extended release 24 hr menthol 0.44 %-zinc oxide 20.6 % 1 appl topical QID PRN skin 12/13/20 topical ointment (Calmoseptine) irritation #113 grams magnesium citrate 150 ml PO DAILY PRN constipation 12/14/20 #296 mL diphenhydramine HCl 25 mg capsule 25 mg PO BEDTIME insomnia #7 caps 12/25/20 (Benadryl) melatonin 10 mg tablet,extended 10 mg PO .nightly #5 tabs 01/07/21 release cefdinir 300 mg capsule 300 mg PO BID Otitis media 10 days 04/14/21 #20 caps ondansetron HCl 4 mg tablet 4 mg PO Q8H PRN nausea and 04/14/21 (Zofran) vomiting #14 tabs metoprolol succinate 50 mg 50 mg PO DAILY #14 tabs 05/22/21 tablet,extended release 24 hr ciprofloxacin 0.3 %-dexamethasone 4 drp otic (ears) BID 7 days 05/26/21 0.1 % ear drops,suspension (Ciprodex) polyethylene glycol 3350 17 17 g PO DAILY PRN constipation 07/31/21 gram/dose oral powder (Miralax) #238 grams hydrocortisone acetate 25 mg 25 mg MN BID #12 ea 08/01/21 rectal suppository (Anucort-HC) cefuroxime axetil 500 mg tablet 500 mg PO BID 7 days #14 tabs 09/01/21 meclizine 25 mg tablet 25 mg PO TID PRN dizziness #10 tabs 09/01/21 zolpidem 5 mg tablet (Ambien) 5 mg PO BEDTIME PRN sleep #2 tabs 10/29/21 zolpidem 5 mg tablet (Ambien) 5 mg PO BEDTIME PRN sleep #2 tabs 10/29/21 lisinopril 40 mg tablet 40 mg PO QPM #90 tabs 06/06/22 levofloxacin 500 mg tablet 500 mg PO DAILY 7 days #7 tabs 07/23/22 levofloxacin 500 mg tablet 500 mg PO DAILY #6 tabs 08/25/22 ofloxacin 0.3 % ear drops 10 drp otic (ears) DAILY 7 days #5 08/25/22 mL hydrocortisone 2.5 % topical cream 1 appl MN BEDTIME PRN hemorrhoids 09/20/22 with perineal applicator #30 grams docusate sodium 100 mg capsule 100 mg PO BID PRN Constipation #14 12/06/22 (Colace) caps phenylephrine 0.25 %-mineral oil 1 appl MN BID PRN hemorrhoids #56 12/06/22 14 %-petrolatm 74.9 % rectal grams ointment (Hemorrhoidal(phenyleph-min oil-petrolat)) polyethylene glycol 3350 17 17 g PO BID #119 grams 12/06/22 gram/dose oral powder (Miralax) Allergies Allergy/AdvReac Type Severity Reaction Status Date / Time penicillin G [Penicillin G] Allergy Severe ITCHY/RASH Verified 10/16/22 09:19 Sulfa (Sulfonamide Allergy Severe ITCHY,RASH, Verified 10/16/22 09:19 Antibiotics) rash [Sulfa (Sulfonamides)] trimethoprim [From Bactrim] Allergy Severe HIVES Verified 10/16/22 09:19 penicillin V Allergy Unknown rash Verified 10/16/22 09:19 sulfacetamide Allergy Unknown unknown Verified 10/16/22 09:19 [From Sulfacet-R] sulfur [From Sulfacet-R] Allergy Unknown unknown Verified 10/16/22 09:19 Review of Systems Review of Systems: Constitutional : No Fever, No Chills, No Night Sweats, No Fatigue, No Malaise Cardiovascular : No Chest Pain, No SOB Respiratory : No Cough, No Sputum, No Wheezing, No Dyspnea Gastrointestinal : No Nausea, No Vomiting, No Diarrhea, No abdominal Pain, No Hematochezia, No Melena, + hemorrhoids with blood when she wipes 1 episode today Genitourinary : No irregular bleeding, No Dysuria, No Urinary Frequency, No Hematuria,No Urinary Incontinence, No Urgency, No Flank Pain Musculoskeletal : No joint pain, No Myalgias, No Joint Swelling Skin : No Skin Lesions, No rash Neuro : No Weakness, No Numbness, No Paresthesias, No Loss of Consciousness, No Dizziness, No Headache Heme/Lymph: No Lymphadenopathy Endocrine : No Temperature Intolerance Yes all other systems are reviewed and are negative [facility] Past Medical History Attestation statement: The following information was validated with the patient. Source: old records reviewed and nursing notes reviewed Medical History Anxiety Arthritis Bleeding hemorrhoids Chronic constipation Dementia Essential hypertension High blood pressure PAC (premature atrial contraction) PVC (premature ventricular contraction) SVT (supraventricular tachycardia) Vertigo Surgical History No pertinent past surgical history Social History Social History Alcohol intake: never Patient Tobacco Use Status: Never used Tobacco Advance Directives: Yes Advance Directives Information Provided: Yes Advance Directives on File: No Physical Exam Vital Signs: Vital Signs: Last Vital Signs Temp 97.6 F 12/06/22 09:24 Pulse 77 12/06/22 09:24 Resp 18 12/06/22 09:24 BP 133/74 12/06/22 09:24 Pulse Ox 98 12/06/22 09:24 O2 Del Method 12/06/22 09:24 BMI result Body Mass Index 24.3 vital signs have been reviewed as normal and appeared to be correct. Blood pressure normal. Heart rate normal. Respiration rate normal. Temperature normal. Oxygen saturation normal. Appearance: Alert. Oriented X3. No acute distress. Head: Normal external exam. Normocephalic. Eyes: PERRLA. EOMI. Conjunctiva and sclera normal. Eyelids normal. ENT: Pharynx normal. Uvula midline. Moist mucous membranes. No trismus noted. No drooling noted. No muffled voice noted. Neck: Normal inspection. Neck supple. FROM. No adenopathy. No meningeal signs. CVS: Normal heart rate and rhythm. Heart sound normal. No murmurs noted. Pulses normal throughout. Respiratory: No respiratory distress. Painless inspiration. Breath sounds normal. No wheezes/rales/rhonchi noted. Chest nontender. No accessory muscle usage noted or decreased air movement noted. Abdomen: Soft and nontender. Nondistended. No guarding. No rigidity. Bowel sounds normal in all 4 quadrants. No distention noted. No organomegaly noted. No visible injury noted. No rebound tenderness. Negative Rovsing sign. Negative obturator's sign. Negative psoas sign. Negative Cruz sign. : Patient noted to have 1 hemorrhoid. Is not actively bleeding. Not incarcerated. Not thrombosed. Back: No CVA tenderness. Full range of motion noted. Skin: Skin warm and dry. Normal skin color. Normal skin turgor. No rashes/lesions/lacerations noted. Extremities: Extremities exhibit normal range of motion. Extremities nontender. Neuro: Oriented X 3. No motor deficit. No sensory deficit. Reflexes normal. Normal steady gait. CN's II-XII intact bilaterally? Course Course Course Narrative: Patient afebrile, resting comfortably in no acute distress. Abdomen is soft, non-tender, with normal bowel sounds. External Hemorrhoids noted, and not thrombosed. No blood noted on exam, bedside guaiac-negative. Therefore no additional labs indicated. No imaging indicated as patient is does not have any abdominal pain. overall appearence of patient. No signs of anemia on PE. Will treat with Colace, MiraLax and hemorrhoid cream and instructions to follow-up with GI/PCP and to return if any new or worsening symptoms. Patient understands agrees with this plan. Medical Decision Making External Record Review External record reviewed: Inpatient record, Office record, Outpatient record, Prior outpatient labs, Prior outpatient radiology, Primary care record and Outside ED record Discharge Plan Discharge Clinical Impression: Hemorrhoids Patient Disposition: Home, Self-Care Instructions: Hemorrhoids (ED) Prescriptions: New Hemorrhoidal(PE-min oil-emma) 0.25-14-74.9 % ointment 1 appl MN BID PRN (Reason: hemorrhoids) Qty: 56 0RF polyethylene glycol 3350 [Miralax] 17 gram/dose powder 17 g PO BID Qty: 119 0RF docusate sodium [Colace] 100 mg capsule 100 mg PO BID PRN (Reason: Constipation) Qty: 14 0RF No Action escitalopram oxalate 10 mg tablet 10 mg PO DAILY Qty: 30 1RF metoprolol succinate 50 mg tablet extended release 24 hr 50 mg PO DAILY Qty: 90 2RF aspirin 81 mg tablet,delayed release (DR/EC) 81 mg PO BEDTIME Qty: 90 2RF polyethylene glycol 3350 [Miralax] 17 gram/dose powder 17 g PO DAILY PRN (Reason: constipation) Qty: 238 0RF lisinopril 40 mg tablet 40 mg PO QPM Qty: 90 3RF acetaminophen 325 mg capsule 325 mg PO QID PRN (Reason: fever or pain) Qty: 30 0RF melatonin 10 mg tablet extended release 10 mg PO .nightly Qty: 5 0RF metoprolol succinate 50 mg tablet extended release 24 hr 50 mg PO DAILY Qty: 14 0RF ciprofloxacin-dexamethasone [Ciprodex] 0.3-0.1 % drops,suspension 4 drp otic (ears) BID 7 Days 0RF alprazolam 0.5 mg Tablet 0.5 mg PO TID PRN (Reason: Anxiety) hydroxyzine HCl 50 mg Tablet 50 mg PO TID PRN (Reason: Anxiety) mirtazapine 45 mg Tablet 45 mg PO BEDTIME multivitamin Capsule 1 cap PO DAILY sertraline 50 mg Tablet 50 mg PO BEDTIME aripiprazole 2 mg Tablet 2 mg PO BEDTIME cholecalciferol (vitamin D3) 25 mcg (1,000 unit) Tablet 25 mcg PO BID omeprazole 20 mg Tablet,Delayed Release (Dr/Ec) 20 mg PO DAILY linaclotide 145 mcg Capsule 145 mcg PO DAILY diphenhydramine HCl [Benadryl] 25 mg capsule 25 mg PO BEDTIME Qty: 7 0RF cefdinir 300 mg capsule 300 mg PO BID 10 Days Qty: 20 0RF ondansetron HCl [Zofran] 4 mg tablet 4 mg PO Q8H PRN (Reason: nausea and vomiting) Qty: 14 0RF cefuroxime axetil 500 mg tablet 500 mg PO BID 7 Days Qty: 14 0RF meclizine 25 mg tablet 25 mg PO TID PRN (Reason: dizziness) Qty: 10 0RF levofloxacin 500 mg tablet 500 mg PO DAILY 7 Days Qty: 7 0RF levofloxacin 500 mg tablet 500 mg PO DAILY Qty: 6 0RF Rx Instructions: start on 08/26 ofloxacin 0.3 % drops 10 drp otic (ears) DAILY 7 Days Qty: 5 0RF Rx Instructions: can substitute eye drops if necessary hydrocortisone 2.5 % cream with perineal applicator 1 appl MN BEDTIME PRN (Reason: hemorrhoids) Qty: 30 0RF Calmoseptine 0.44-20.6 % ointment 1 appl topical QID PRN (Reason: skin irritation) Qty: 113 0RF magnesium citrate Solution 150 ml PO DAILY PRN (Reason: constipation) Qty: 296 0RF Rx Instructions: take only when needed for constipation hydrocortisone acetate [Anucort-HC] 25 mg suppository 25 mg MN BID Qty: 12 3RF zolpidem [Ambien] 5 mg tablet 5 mg PO BEDTIME PRN (Reason: sleep) Qty: 2 0RF zolpidem [Ambien] 5 mg tablet 5 mg PO BEDTIME PRN (Reason: sleep) Qty: 2 0RF Referrals: Name,MD Nitin [Primary Care Provider] - 1 day Print Language: [place]
== END 2022-12-06 09:57 | disposition home or self-care (01) ==
PROVIDERS: Emergency Provider Student in an Organized Health Care Education/Training Program; PCP Internal Medicine Geriatric Medicine
DX: K64.4 Residual hemorrhoidal skin tags (principal); I10 Essential (primary) hypertension; Z79.899 Other long term (current) drug therapy; Z79.82 Long term (current) use of aspirin
CPT/HCPCS: 99282; 99283

== ENCOUNTER 2022-12-16 02:59 | Emergency (ER) | payer OTHER, SELFPAY ==
[2022-12-16 03:22] VITALS: BP 148/65; BP 180/73; PULSE 77; PULSE 88; RESP 20; TEMP 37.1; O2SAT 100; O2SAT 98; BMI 24.3
[2022-12-16 03:31] VITALS: BP 148/65; PULSE 77; RESP 20; TEMP 37.1; O2SAT 98
[2022-12-16] MEDS: Acetaminophen 325 MG TABLET 650 MG PO (05:17)
--- NOTE | 2022-12-16 06:43 | ED_ITS ---
HPI - General Adult General Chief complaint: Anxiety Stated complaint: nausea and dizzy Time Seen by Provider: 12/16/22 06:33 Source: patient Mode of arrival: ambulatory Limitations: no limitations History of Present Illness HPI narrative: Patient states that her sister is dying in [place], and she left her alprazolam there. She needs her alprazolam. Onset (ago): day(s) Severity: moderate Pain Consistency: constant Associated symptoms: other (anxious) Related Data Home Medications Medication Instructions Recorded Confirmed alprazolam 0.5 mg tablet 0.5 mg PO TID PRN Anxiety 08/09/20 10/16/22 aripiprazole 2 mg tablet 2 mg PO BEDTIME 08/09/20 10/16/22 cholecalciferol (vitamin D3) 25 25 mcg PO BID 08/09/20 10/16/22 mcg (1,000 unit) tablet hydroxyzine HCl 50 mg tablet 50 mg PO TID PRN Anxiety 08/09/20 10/16/22 linaclotide 145 mcg capsule 145 mcg PO DAILY 08/09/20 10/16/22 mirtazapine 45 mg tablet 45 mg PO BEDTIME 08/09/20 10/16/22 multivitamin 1 cap PO DAILY 08/09/20 10/16/22 omeprazole 20 mg tablet,delayed 20 mg PO DAILY 08/09/20 10/16/22 release sertraline 50 mg tablet 50 mg PO BEDTIME 08/09/20 10/16/22 Previous Rx's Medication Instructions Recorded escitalopram oxalate 10 mg tablet 10 mg PO DAILY #30 tabs 09/06/20 acetaminophen 325 mg capsule 325 mg PO QID PRN fever or pain 09/16/20 #30 caps aspirin 81 mg tablet,delayed 81 mg PO BEDTIME #90 tabs 09/28/20 release metoprolol succinate 50 mg 50 mg PO DAILY #90 tabs 09/28/20 tablet,extended release 24 hr menthol 0.44 %-zinc oxide 20.6 % 1 appl topical QID PRN skin 12/13/20 topical ointment (Calmoseptine) irritation #113 grams magnesium citrate 150 ml PO DAILY PRN constipation 12/14/20 #296 mL diphenhydramine HCl 25 mg capsule 25 mg PO BEDTIME insomnia #7 caps 12/25/20 (Benadryl) melatonin 10 mg tablet,extended 10 mg PO .nightly #5 tabs 01/07/21 release cefdinir 300 mg capsule 300 mg PO BID Otitis media 10 days 04/14/21 #20 caps ondansetron HCl 4 mg tablet 4 mg PO Q8H PRN nausea and 04/14/21 (Zofran) vomiting #14 tabs metoprolol succinate 50 mg 50 mg PO DAILY #14 tabs 05/22/21 tablet,extended release 24 hr ciprofloxacin 0.3 %-dexamethasone 4 drp otic (ears) BID 7 days 05/26/21 0.1 % ear drops,suspension (Ciprodex) polyethylene glycol 3350 17 17 g PO DAILY PRN constipation 07/31/21 gram/dose oral powder (Miralax) #238 grams hydrocortisone acetate 25 mg 25 mg SC BID #12 ea 08/01/21 rectal suppository (Anucort-HC) cefuroxime axetil 500 mg tablet 500 mg PO BID 7 days #14 tabs 09/01/21 meclizine 25 mg tablet 25 mg PO TID PRN dizziness #10 tabs 09/01/21 zolpidem 5 mg tablet (Ambien) 5 mg PO BEDTIME PRN sleep #2 tabs 10/29/21 zolpidem 5 mg tablet (Ambien) 5 mg PO BEDTIME PRN sleep #2 tabs 10/29/21 lisinopril 40 mg tablet 40 mg PO QPM #90 tabs 06/06/22 levofloxacin 500 mg tablet 500 mg PO DAILY 7 days #7 tabs 07/23/22 levofloxacin 500 mg tablet 500 mg PO DAILY #6 tabs 08/25/22 ofloxacin 0.3 % ear drops 10 drp otic (ears) DAILY 7 days #5 08/25/22 mL hydrocortisone 2.5 % topical cream 1 appl SC BEDTIME PRN hemorrhoids 09/20/22 with perineal applicator #30 grams docusate sodium 100 mg capsule 100 mg PO BID PRN Constipation #14 12/06/22 (Colace) caps phenylephrine 0.25 %-mineral oil 1 appl SC BID PRN hemorrhoids #56 12/06/22 14 %-petrolatm 74.9 % rectal grams ointment (Hemorrhoidal(phenyleph-min oil-petrolat)) polyethylene glycol 3350 17 17 g PO BID #119 grams 12/06/22 gram/dose oral powder (Miralax) cefuroxime axetil 500 mg tablet 500 mg PO BID 10 days #20 tabs 12/16/22 Allergies Allergy/AdvReac Type Severity Reaction Status Date / Time penicillin G [Penicillin G] Allergy Severe ITCHY/RASH Verified 10/16/22 09:19 Sulfa (Sulfonamide Allergy Severe ITCHY,RASH, Verified 10/16/22 09:19 Antibiotics) rash [Sulfa (Sulfonamides)] trimethoprim [From Bactrim] Allergy Severe HIVES Verified 10/16/22 09:19 penicillin V Allergy Unknown rash Verified 10/16/22 09:19 sulfacetamide Allergy Unknown unknown Verified 10/16/22 09:19 [From Sulfacet-R] sulfur [From Sulfacet-R] Allergy Unknown unknown Verified 10/16/22 09:19 Review of Systems Review of Systems: Yes all other systems are reviewed and are negative ENT: Comments: left ear pain Psychiatric: Psychiatric: Reports other (anxiety) [facility] Past Medical History Medical History Anxiety Arthritis Bleeding hemorrhoids Chronic constipation Dementia Essential hypertension High blood pressure PAC (premature atrial contraction) PVC (premature ventricular contraction) SVT (supraventricular tachycardia) Vertigo Surgical History No pertinent past surgical history Social History Social History Alcohol intake: never Patient Tobacco Use Status: Never used Tobacco Advance Directives: No Physical Exam ED Vital Signs: Vital Signs - 24 hr 12/16/22 03:22 12/16/22 03:31 Temperature 98.8 F 98.8 F Pulse Rate 77 77 Respiratory Rate 20 20 Blood Pressure 148/65 H 148/65 H Pulse Oximetry 98 98 Oxygen Delivery Method Room Air Room Air BMI result Body Mass Index 24.3 Const Other: very anxious General: healthy appearing Nutritional Appearance: average body habitus Orientation/consciousness: oriented to person and patient oriented x3 Limitations: no limitations HENMT Other: left TM with erythema and bulging Head: Yes normal to inspection General nose exam: Normal external nose present Mouth: Normal oral and palatal mucosa present and oropharynx normal Throat: Yes posterior oropharynx normal Eyes General: appearance normal, both eyes and all related structures Neck Neck: Yes normal visual inspection Chest Chest palpation & inspection: normal inspection of the chest Resp Auscultation: clear to auscultation bilaterally Cardio Jugular venous distension: no JVD Rate: regular rate Rhythm: regular rhythm Heart sounds: S1 normal heart sound present and S2 normal heart sound present GI Inspection: Yes normal to inspection Palpation (GI): Soft to palpation, nontender and No hepatosplenomegaly present Auscultation: normal bowel sounds General: Yes no CVA tenderness Back/Spine/Pelvis Back: no CVA tenderness Skin General skin exam: no rashes or lesions noted Neuro General: oriented to person and patient oriented x3 Cranial nerves: Yes CN's II-XII intact bilaterally Motor exam (neuro): 5/5 motor strength present throughout Extrem General: Yes normal to inspection Psych Appearance: grossly normal Course Reevaluation(s) Reevaluation #1: will give patient one dose of alprazolam and dc on ceftin for ear infection Time: 07:11 Medications Administered Discontinued Medications Generic Name Dose Route Start Last Admin Trade Name Saymq PRN Reason Stop Dose Admin Acetaminophen 650 mg 12/16/22 05:13 12/16/22 05:17 Acetaminophen 325 Mg Tablet PO 12/16/22 05:14 650 mg ONCE ONE Administration Alprazolam 0.5 mg 12/16/22 06:45 12/16/22 07:12 Alprazolam 0.5 Mg Tablet PO 12/16/22 06:46 0.5 mg ONCE ONE Administration Cefuroxime Axetil 500 mg 12/16/22 06:48 12/16/22 07:12 Cefuroxime Axetil 500 Mg Tablet PO 12/16/22 06:49 500 mg ONCE ONE Administration Ibuprofen 600 mg 12/16/22 06:45 12/16/22 07:12 Ibuprofen 600 Mg Tablet PO 12/16/22 06:46 600 mg ONCE ONE Administration Medical Decision Making Differential Diagnosis Anxiety and ear infection Social Determinants psychiatric illness Discharge Plan Discharge Clinical Impression: Generalized anxiety disorder with panic attacks, Otitis media Patient Disposition: Home, Self-Care Instructions: Ear Infection (ED), Anxiety (ED) Prescriptions: New cefuroxime axetil 500 mg tablet 500 mg PO BID 10 Days Qty: 20 0RF No Action escitalopram oxalate 10 mg tablet 10 mg PO DAILY Qty: 30 1RF metoprolol succinate 50 mg tablet extended release 24 hr 50 mg PO DAILY Qty: 90 2RF aspirin 81 mg tablet,delayed release (DR/EC) 81 mg PO BEDTIME Qty: 90 2RF polyethylene glycol 3350 [Miralax] 17 gram/dose powder 17 g PO DAILY PRN (Reason: constipation) Qty: 238 0RF lisinopril 40 mg tablet 40 mg PO QPM Qty: 90 3RF acetaminophen 325 mg capsule 325 mg PO QID PRN (Reason: fever or pain) Qty: 30 0RF melatonin 10 mg tablet extended release 10 mg PO .nightly Qty: 5 0RF metoprolol succinate 50 mg tablet extended release 24 hr 50 mg PO DAILY Qty: 14 0RF ciprofloxacin-dexamethasone [Ciprodex] 0.3-0.1 % drops,suspension 4 drp otic (ears) BID 7 Days 0RF alprazolam 0.5 mg Tablet 0.5 mg PO TID PRN (Reason: Anxiety) hydroxyzine HCl 50 mg Tablet 50 mg PO TID PRN (Reason: Anxiety) mirtazapine 45 mg Tablet 45 mg PO BEDTIME multivitamin Capsule 1 cap PO DAILY sertraline 50 mg Tablet 50 mg PO BEDTIME aripiprazole 2 mg Tablet 2 mg PO BEDTIME cholecalciferol (vitamin D3) 25 mcg (1,000 unit) Tablet 25 mcg PO BID omeprazole 20 mg Tablet,Delayed Release (Dr/Ec) 20 mg PO DAILY linaclotide 145 mcg Capsule 145 mcg PO DAILY diphenhydramine HCl [Benadryl] 25 mg capsule 25 mg PO BEDTIME Qty: 7 0RF cefdinir 300 mg capsule 300 mg PO BID 10 Days Qty: 20 0RF ondansetron HCl [Zofran] 4 mg tablet 4 mg PO Q8H PRN (Reason: nausea and vomiting) Qty: 14 0RF cefuroxime axetil 500 mg tablet 500 mg PO BID 7 Days Qty: 14 0RF meclizine 25 mg tablet 25 mg PO TID PRN (Reason: dizziness) Qty: 10 0RF levofloxacin 500 mg tablet 500 mg PO DAILY 7 Days Qty: 7 0RF levofloxacin 500 mg tablet 500 mg PO DAILY Qty: 6 0RF Rx Instructions: start on 08/26 ofloxacin 0.3 % drops 10 drp otic (ears) DAILY 7 Days Qty: 5 0RF Rx Instructions: can substitute eye drops if necessary hydrocortisone 2.5 % cream with perineal applicator 1 appl SC BEDTIME PRN (Reason: hemorrhoids) Qty: 30 0RF Hemorrhoidal(PE-min oil-emma) 0.25-14-74.9 % ointment 1 appl SC BID PRN (Reason: hemorrhoids) Qty: 56 0RF polyethylene glycol 3350 [Miralax] 17 gram/dose powder 17 g PO BID Qty: 119 0RF docusate sodium [Colace] 100 mg capsule 100 mg PO BID PRN (Reason: Constipation) Qty: 14 0RF Calmoseptine 0.44-20.6 % ointment 1 appl topical QID PRN (Reason: skin irritation) Qty: 113 0RF magnesium citrate Solution 150 ml PO DAILY PRN (Reason: constipation) Qty: 296 0RF Rx Instructions: take only when needed for constipation hydrocortisone acetate [Anucort-HC] 25 mg suppository 25 mg SC BID Qty: 12 3RF zolpidem [Ambien] 5 mg tablet 5 mg PO BEDTIME PRN (Reason: sleep) Qty: 2 0RF zolpidem [Ambien] 5 mg tablet 5 mg PO BEDTIME PRN (Reason: sleep) Qty: 2 0RF Referrals: Name,MD Nitin [Primary Care Provider] - 1 week
[2022-12-16] MEDS: Ibuprofen 600 MG TABLET PO (07:12)
[2022-12-16] MEDS: ALPRAZolam 0.5 MG TABLET PO (07:12)
== END 2022-12-16 07:28 | disposition home or self-care (01) ==
PROVIDERS: Emergency Provider Emergency Medicine; PCP Internal Medicine Geriatric Medicine
DX: F41.1 Generalized anxiety disorder (principal); F41.0 Panic disorder [episodic paroxysmal anxiety]; H66.92 Otitis media, unspecified, left ear; I10 Essential (primary) hypertension; Z79.899 Other long term (current) drug therapy
CPT/HCPCS: 99283; 99284

== ENCOUNTER 2022-12-22 04:53 | Emergency (ER) | payer OTHER, SELFPAY ==
[2022-12-22 04:55] VITALS: BP 178/78; PULSE 83; O2SAT 95
[2022-12-22 04:59] VITALS: BP 164/93; PULSE 87; RESP 20; O2SAT 99; BMI 24.3
[2022-12-22 07:30] VITALS: BP 172/89; PULSE 100; RESP 20; TEMP 36.9; O2SAT 98
--- NOTE | 2022-12-22 08:15 | ED.ANXIETY ---
HPI - Anxiety General Chief Complaint: Anxiety Stated Complaint: Anxiety Time Seen by Provider: 12/22/22 08:09 Source: patient and interpreter deaf Mode of arrival: ambulatory Limitations: language barrier History of Present Illness HPI narrative: Patient was in [place] this last week visiting her sister and left her bottle of Xanax there. Her psychiatrist's will refill her prescription on Friday per patient. Patient is here because she feels anxious and when she feels anxious her blood pressure gets elevated. Related Data Home Medications Medication Instructions Recorded Confirmed alprazolam 0.5 mg tablet 0.5 mg PO TID PRN Anxiety 08/09/20 10/16/22 aripiprazole 2 mg tablet 2 mg PO BEDTIME 08/09/20 10/16/22 cholecalciferol (vitamin D3) 25 25 mcg PO BID 08/09/20 10/16/22 mcg (1,000 unit) tablet hydroxyzine HCl 50 mg tablet 50 mg PO TID PRN Anxiety 08/09/20 10/16/22 linaclotide 145 mcg capsule 145 mcg PO DAILY 08/09/20 10/16/22 mirtazapine 45 mg tablet 45 mg PO BEDTIME 08/09/20 10/16/22 multivitamin 1 cap PO DAILY 08/09/20 10/16/22 omeprazole 20 mg tablet,delayed 20 mg PO DAILY 08/09/20 10/16/22 release sertraline 50 mg tablet 50 mg PO BEDTIME 08/09/20 10/16/22 Previous Rx's Medication Instructions Recorded escitalopram oxalate 10 mg tablet 10 mg PO DAILY #30 tabs 09/06/20 acetaminophen 325 mg capsule 325 mg PO QID PRN fever or pain 09/16/20 #30 caps aspirin 81 mg tablet,delayed 81 mg PO BEDTIME #90 tabs 09/28/20 release metoprolol succinate 50 mg 50 mg PO DAILY #90 tabs 09/28/20 tablet,extended release 24 hr menthol 0.44 %-zinc oxide 20.6 % 1 appl topical QID PRN skin 12/13/20 topical ointment (Calmoseptine) irritation #113 grams magnesium citrate 150 ml PO DAILY PRN constipation 12/14/20 #296 mL diphenhydramine HCl 25 mg capsule 25 mg PO BEDTIME insomnia #7 caps 12/25/20 (Benadryl) melatonin 10 mg tablet,extended 10 mg PO .nightly #5 tabs 01/07/21 release cefdinir 300 mg capsule 300 mg PO BID Otitis media 10 days 04/14/21 #20 caps ondansetron HCl 4 mg tablet 4 mg PO Q8H PRN nausea and 04/14/21 (Zofran) vomiting #14 tabs metoprolol succinate 50 mg 50 mg PO DAILY #14 tabs 05/22/21 tablet,extended release 24 hr ciprofloxacin 0.3 %-dexamethasone 4 drp otic (ears) BID 7 days 05/26/21 0.1 % ear drops,suspension (Ciprodex) polyethylene glycol 3350 17 17 g PO DAILY PRN constipation 07/31/21 gram/dose oral powder (Miralax) #238 grams hydrocortisone acetate 25 mg 25 mg NC BID #12 ea 08/01/21 rectal suppository (Anucort-HC) cefuroxime axetil 500 mg tablet 500 mg PO BID 7 days #14 tabs 09/01/21 meclizine 25 mg tablet 25 mg PO TID PRN dizziness #10 tabs 09/01/21 zolpidem 5 mg tablet (Ambien) 5 mg PO BEDTIME PRN sleep #2 tabs 10/29/21 zolpidem 5 mg tablet (Ambien) 5 mg PO BEDTIME PRN sleep #2 tabs 10/29/21 lisinopril 40 mg tablet 40 mg PO QPM #90 tabs 06/06/22 levofloxacin 500 mg tablet 500 mg PO DAILY 7 days #7 tabs 07/23/22 levofloxacin 500 mg tablet 500 mg PO DAILY #6 tabs 08/25/22 ofloxacin 0.3 % ear drops 10 drp otic (ears) DAILY 7 days #5 08/25/22 mL hydrocortisone 2.5 % topical cream 1 appl NC BEDTIME PRN hemorrhoids 09/20/22 with perineal applicator #30 grams docusate sodium 100 mg capsule 100 mg PO BID PRN Constipation #14 12/06/22 (Colace) caps phenylephrine 0.25 %-mineral oil 1 appl NC BID PRN hemorrhoids #56 12/06/22 14 %-petrolatm 74.9 % rectal grams ointment (Hemorrhoidal(phenyleph-min oil-petrolat)) polyethylene glycol 3350 17 17 g PO BID #119 grams 12/06/22 gram/dose oral powder (Miralax) cefuroxime axetil 500 mg tablet 500 mg PO BID 10 days #20 tabs 12/16/22 Allergies Allergy/AdvReac Type Severity Reaction Status Date / Time penicillin G [Penicillin G] Allergy Severe ITCHY/RASH Verified 12/22/22 04:58 Sulfa (Sulfonamide Allergy Severe ITCHY,RASH, Verified 12/22/22 04:58 Antibiotics) rash [Sulfa (Sulfonamides)] trimethoprim [From Bactrim] Allergy Severe HIVES Verified 12/22/22 04:58 penicillin V Allergy Unknown rash Verified 12/22/22 04:58 sulfacetamide Allergy Unknown unknown Verified 12/22/22 04:58 [From Sulfacet-R] sulfur [From Sulfacet-R] Allergy Unknown unknown Verified 12/22/22 04:58 Review of Systems Review of Systems: Yes all other systems are reviewed and are negative Constitutional: Constitutional: Reports no additional constitutional complaints, Denies body ache(s), Denies chills, Denies fever(s), Denies headache(s) and Denies weakness Eyes: Eyes: Reports no additional eye complaints and Denies change in vision ENT: Reports system reviewed and no additional complaints, except as documented, Denies dizziness, Denies headache(s), Denies nasal congestion, Denies nasal discharge and Denies neck pain Cardiovascular: Cardiovascular: Reports no additional cardiovascular complaints, Denies chest pain, Denies leg edema and Denies dyspnea Respiratory: Respiratory: Reports no additional respiratory complaints, Denies cough and Denies dyspnea Gastrointestinal: Gastrointestinal: Reports no additional gastrointestinal complaints, Denies abdominal pain, Denies diarrhea, Denies nausea and Denies vomiting Genitourinary: Genitourinary: Reports no additional female genitourinary complaints and Denies urinary incontinence Musculoskeletal: Musculoskeletal: Reports no additional musculoskeletal complaints, Denies back pain, Denies arthralgias, Denies joint swelling, Denies neck pain, Denies numbness and Denies tingling Integumentary/Breasts: Skin/Breast: Reports system reviewed and no additional complaints, except as docu and Denies rash Neurologic: Reports system reviewed and no additional complaints, except as documented, Denies Abnormal speech present, Denies dizziness, Denies headache(s), Denies numbness, Denies tingling and Denies weakness Psychiatric: Psychiatric: Reports anxiety PMFSH Past Medical History Attestation statement: The following information was validated with the patient. Source: old records reviewed and nursing notes reviewed Medical History Anxiety Arthritis Bleeding hemorrhoids Chronic constipation Dementia Essential hypertension High blood pressure PAC (premature atrial contraction) PVC (premature ventricular contraction) SVT (supraventricular tachycardia) Vertigo Surgical History No pertinent past surgical history Social History Social History Alcohol intake: never Patient Tobacco Use Status: Never used Tobacco Smoked in Last 30 Days: No Use of substances other than those prescribed or required for medical reasons: No Advance Directives: No Physical Exam Vital Signs: Vital Signs: Last Vital Signs Temp 98.4 F 12/22/22 07:30 Pulse 100 12/22/22 07:30 Resp 20 12/22/22 07:30 BP 172/89 H 12/22/22 07:30 Pulse Ox 98 12/22/22 07:30 O2 Del Method 12/22/22 07:30 BMI result Body Mass Index 24.3 Const: General: cooperative, healthy appearing, comfortable and no acute distress Orientation/consciousness: patient oriented x3 Limitations: no limitations HEENT: Head: Yes normal to inspection Ears: hearing grossly normal bilaterally General nose exam: Normal external nose present Face and sinus: Yes normal facial exam Mouth: Normal oral and palatal mucosa present Throat: Yes posterior oropharynx normal Eyes: General: appearance normal, both eyes and all related structures Pupils: Equal, round and reactive pupils present Neck: Neck: Yes normal visual inspection Chest: Chest palpation & inspection: normal inspection of the chest Resp: Effort & Inspection: normal respiratory effort Auscultation: clear to auscultation bilaterally Cardio: Rate: regular rate Rhythm: regular rhythm Peripheral pulses: Peripheral pulses 2+ throughout GI: Inspection: Yes normal to inspection Palpation (GI): Soft to palpation and nontender Auscultation: normal bowel sounds Back/Spine/Pelvis: Thoracic/Lumbar Spine: thoracic and lumbar spine normal to inspection Skin: General skin exam: no rashes or lesions noted Neuro: General: patient oriented x3, no focal motor deficits and normal sensation to monofilament Cranial nerves: Yes Equal, round and reactive pupils present Cognition (Neuro): normal cognition Speech: No Abnormal speech present Gait exam (Neuro): Normal gait present Motor exam (neuro): 5/5 motor strength present throughout Extrem: General: Yes normal to inspection Medications Administered Discontinued Medications Generic Name Dose Route Start Last Admin Trade Name Freq PRN Reason Stop Dose Admin Alprazolam 0.5 mg 12/22/22 08:29 12/22/22 08:41 Alprazolam 0.5 Mg Tablet PO 12/22/22 08:30 0.5 mg ONCE ONE Administration Medical Decision Making Medical Decision Making MDM Narrative: 77-year-old female with history of anxiety who recently traveled to [place] to visit her sister and left her bottle of Xanax in [place]. Patient tells me her psychiatrist will give her refill on Friday. Patient will be given 1 dose of Xanax here in the emergency room Differential Diagnosis Differential Diagnoses: The differential diagnosis associated with the presentation includes anxiety Discharge Plan Discharge Clinical Impression: Acute anxiety Patient Disposition: Home, Self-Care Instructions: Anxiety (ED) Prescriptions: No Action escitalopram oxalate 10 mg tablet 10 mg PO DAILY Qty: 30 1RF metoprolol succinate 50 mg tablet extended release 24 hr 50 mg PO DAILY Qty: 90 2RF aspirin 81 mg tablet,delayed release (DR/EC) 81 mg PO BEDTIME Qty: 90 2RF polyethylene glycol 3350 [Miralax] 17 gram/dose powder 17 g PO DAILY PRN (Reason: constipation) Qty: 238 0RF lisinopril 40 mg tablet 40 mg PO QPM Qty: 90 3RF acetaminophen 325 mg capsule 325 mg PO QID PRN (Reason: fever or pain) Qty: 30 0RF melatonin 10 mg tablet extended release 10 mg PO .nightly Qty: 5 0RF metoprolol succinate 50 mg tablet extended release 24 hr 50 mg PO DAILY Qty: 14 0RF ciprofloxacin-dexamethasone [Ciprodex] 0.3-0.1 % drops,suspension 4 drp otic (ears) BID 7 Days 0RF alprazolam 0.5 mg Tablet 0.5 mg PO TID PRN (Reason: Anxiety) hydroxyzine HCl 50 mg Tablet 50 mg PO TID PRN (Reason: Anxiety) mirtazapine 45 mg Tablet 45 mg PO BEDTIME multivitamin Capsule 1 cap PO DAILY sertraline 50 mg Tablet 50 mg PO BEDTIME aripiprazole 2 mg Tablet 2 mg PO BEDTIME cholecalciferol (vitamin D3) 25 mcg (1,000 unit) Tablet 25 mcg PO BID omeprazole 20 mg Tablet,Delayed Release (Dr/Ec) 20 mg PO DAILY linaclotide 145 mcg Capsule 145 mcg PO DAILY diphenhydramine HCl [Benadryl] 25 mg capsule 25 mg PO BEDTIME Qty: 7 0RF cefdinir 300 mg capsule 300 mg PO BID 10 Days Qty: 20 0RF ondansetron HCl [Zofran] 4 mg tablet 4 mg PO Q8H PRN (Reason: nausea and vomiting) Qty: 14 0RF cefuroxime axetil 500 mg tablet 500 mg PO BID 7 Days Qty: 14 0RF meclizine 25 mg tablet 25 mg PO TID PRN (Reason: dizziness) Qty: 10 0RF levofloxacin 500 mg tablet 500 mg PO DAILY 7 Days Qty: 7 0RF cefuroxime axetil 500 mg tablet 500 mg PO BID 10 Days Qty: 20 0RF levofloxacin 500 mg tablet 500 mg PO DAILY Qty: 6 0RF Rx Instructions: start on 08/26 ofloxacin 0.3 % drops 10 drp otic (ears) DAILY 7 Days Qty: 5 0RF Rx Instructions: can substitute eye drops if necessary hydrocortisone 2.5 % cream with perineal applicator 1 appl NC BEDTIME PRN (Reason: hemorrhoids) Qty: 30 0RF Hemorrhoidal(PE-min oil-emma) 0.25-14-74.9 % ointment 1 appl NC BID PRN (Reason: hemorrhoids) Qty: 56 0RF polyethylene glycol 3350 [Miralax] 17 gram/dose powder 17 g PO BID Qty: 119 0RF docusate sodium [Colace] 100 mg capsule 100 mg PO BID PRN (Reason: Constipation) Qty: 14 0RF Calmoseptine 0.44-20.6 % ointment 1 appl topical QID PRN (Reason: skin irritation) Qty: 113 0RF magnesium citrate Solution 150 ml PO DAILY PRN (Reason: constipation) Qty: 296 0RF Rx Instructions: take only when needed for constipation hydrocortisone acetate [Anucort-HC] 25 mg suppository 25 mg NC BID Qty: 12 3RF zolpidem [Ambien] 5 mg tablet 5 mg PO BEDTIME PRN (Reason: sleep) Qty: 2 0RF zolpidem [Ambien] 5 mg tablet 5 mg PO BEDTIME PRN (Reason: sleep) Qty: 2 0RF Referrals: Name,MD Nitin [Primary Care Provider] - 1 week
[2022-12-22] MEDS: ALPRAZolam 0.5 MG TABLET PO (08:41)
== END 2022-12-22 08:45 | disposition home or self-care (01) ==
PROVIDERS: Emergency Provider Emergency Medicine Emergency Medical Services; PCP Internal Medicine Geriatric Medicine
DX: F41.1 Generalized anxiety disorder (principal); F43.0 Acute stress reaction; Z79.899 Other long term (current) drug therapy
CPT/HCPCS: 99284

== ENCOUNTER 2023-01-01 06:59 | Emergency (ER) | payer OTHER, SELFPAY ==
[2023-01-01 07:07] VITALS: BP 163/88; BP 174/86; PULSE 82; PULSE 88; RESP 16; TEMP 37.2; O2SAT 98; O2SAT 99; BMI 25.0
[2023-01-01 07:09] VITALS: BP 163/88; PULSE 88; RESP 16; TEMP 37.2; O2SAT 98
--- NOTE | 2023-01-01 07:12 | ED.HA ---
HPI - Headache General Chief Complaint: Headache Stated Complaint: headache Time Seen by Provider: 01/01/23 07:11 Source: patient and EMS Mode of arrival: EMS Limitations: no limitations History of Present Illness HPI Narrative: 77-year-old female came in by ambulance for evaluation of anxiety and right-sided headache for 3 days. Patient is well known to our ED staff for anxiety came in by ambulance for increased anxiety and also complaining of right occipital pain patient pointing to 1 point at the right occipital area, no photophobia, no nausea, no vomiting. Related Data Home Medications Medication Instructions Recorded Confirmed alprazolam 0.5 mg tablet 0.5 mg PO TID PRN Anxiety 08/09/20 10/16/22 aripiprazole 2 mg tablet 2 mg PO BEDTIME 08/09/20 10/16/22 cholecalciferol (vitamin D3) 25 25 mcg PO BID 08/09/20 10/16/22 mcg (1,000 unit) tablet hydroxyzine HCl 50 mg tablet 50 mg PO TID PRN Anxiety 08/09/20 10/16/22 linaclotide 145 mcg capsule 145 mcg PO DAILY 08/09/20 10/16/22 mirtazapine 45 mg tablet 45 mg PO BEDTIME 08/09/20 10/16/22 multivitamin 1 cap PO DAILY 08/09/20 10/16/22 omeprazole 20 mg tablet,delayed 20 mg PO DAILY 08/09/20 10/16/22 release sertraline 50 mg tablet 50 mg PO BEDTIME 08/09/20 10/16/22 Previous Rx's Medication Instructions Recorded escitalopram oxalate 10 mg tablet 10 mg PO DAILY #30 tabs 09/06/20 acetaminophen 325 mg capsule 325 mg PO QID PRN fever or pain 09/16/20 #30 caps aspirin 81 mg tablet,delayed 81 mg PO BEDTIME #90 tabs 09/28/20 release metoprolol succinate 50 mg 50 mg PO DAILY #90 tabs 09/28/20 tablet,extended release 24 hr menthol 0.44 %-zinc oxide 20.6 % 1 appl topical QID PRN skin 12/13/20 topical ointment (Calmoseptine) irritation #113 grams magnesium citrate 150 ml PO DAILY PRN constipation 12/14/20 #296 mL diphenhydramine HCl 25 mg capsule 25 mg PO BEDTIME insomnia #7 caps 12/25/20 (Benadryl) melatonin 10 mg tablet,extended 10 mg PO .nightly #5 tabs 01/07/21 release cefdinir 300 mg capsule 300 mg PO BID Otitis media 10 days 04/14/21 #20 caps ondansetron HCl 4 mg tablet 4 mg PO Q8H PRN nausea and 04/14/21 (Zofran) vomiting #14 tabs metoprolol succinate 50 mg 50 mg PO DAILY #14 tabs 05/22/21 tablet,extended release 24 hr ciprofloxacin 0.3 %-dexamethasone 4 drp otic (ears) BID 7 days 05/26/21 0.1 % ear drops,suspension (Ciprodex) polyethylene glycol 3350 17 17 g PO DAILY PRN constipation 07/31/21 gram/dose oral powder (Miralax) #238 grams hydrocortisone acetate 25 mg 25 mg [place] BID #12 ea 08/01/21 rectal suppository (Anucort-HC) cefuroxime axetil 500 mg tablet 500 mg PO BID 7 days #14 tabs 09/01/21 meclizine 25 mg tablet 25 mg PO TID PRN dizziness #10 tabs 09/01/21 zolpidem 5 mg tablet (Ambien) 5 mg PO BEDTIME PRN sleep #2 tabs 10/29/21 zolpidem 5 mg tablet (Ambien) 5 mg PO BEDTIME PRN sleep #2 tabs 10/29/21 lisinopril 40 mg tablet 40 mg PO QPM #90 tabs 06/06/22 levofloxacin 500 mg tablet 500 mg PO DAILY 7 days #7 tabs 07/23/22 levofloxacin 500 mg tablet 500 mg PO DAILY #6 tabs 08/25/22 ofloxacin 0.3 % ear drops 10 drp otic (ears) DAILY 7 days #5 08/25/22 mL hydrocortisone 2.5 % topical cream 1 appl NJ BEDTIME PRN hemorrhoids 09/20/22 with perineal applicator #30 grams docusate sodium 100 mg capsule 100 mg PO BID PRN Constipation #14 12/06/22 (Colace) caps phenylephrine 0.25 %-mineral oil 1 appl NJ BID PRN hemorrhoids #56 12/06/22 14 %-petrolatm 74.9 % rectal grams ointment (Hemorrhoidal(phenyleph-min oil-petrolat)) polyethylene glycol 3350 17 17 g PO BID #119 grams 12/06/22 gram/dose oral powder (Miralax) cefuroxime axetil 500 mg tablet 500 mg PO BID 10 days #20 tabs 12/16/22 Allergies Allergy/AdvReac Type Severity Reaction Status Date / Time penicillin G [Penicillin G] Allergy Severe ITCHY/RASH Verified 12/22/22 04:58 Sulfa (Sulfonamide Allergy Severe ITCHY,RASH, Verified 12/22/22 04:58 Antibiotics) rash [Sulfa (Sulfonamides)] trimethoprim [From Bactrim] Allergy Severe HIVES Verified 12/22/22 04:58 penicillin V Allergy Unknown rash Verified 12/22/22 04:58 sulfacetamide Allergy Unknown unknown Verified 12/22/22 04:58 [From Sulfacet-R] sulfur [From Sulfacet-R] Allergy Unknown unknown Verified 12/22/22 04:58 Review of Systems Review of Systems: All other systems are reviewed and are negative Constitutional: Reports as per HPI and Reports no additional constitutional complaints Eyes: Reports as per HPI and Reports no additional eye complaints Reports system reviewed and no additional complaints, except as documented Cardiovascular: Reports as per HPI and Reports no additional cardiovascular complaints Respiratory: Reports as per HPI and Reports no additional respiratory complaints Gastrointestinal: Reports as per HPI and Reports no additional gastrointestinal complaints Genitourinary: Reports no additional female genitourinary complaints Musculoskeletal: Reports no additional musculoskeletal complaints Skin/Breast: Reports system reviewed and no additional complaints, except as docu Psychiatric: Reports no additional psychiatric complaints Endocrine: Reports no additional endocrine complaints Hematologic/Lymphatic: Reports no additional hematologic/lymphatic complaints Allergic/Immunologic: Reports no additional allergic/immunologic complaints Reports system reviewed and no additional complaints, except as documented and Reports Abnormal speech present [facility] Past Medical History Medical History Anxiety Arthritis Bleeding hemorrhoids Chronic constipation Dementia Essential hypertension High blood pressure PAC (premature atrial contraction) PVC (premature ventricular contraction) SVT (supraventricular tachycardia) Vertigo Surgical History No pertinent past surgical history Social History Social History Alcohol intake: never Patient Tobacco Use Status: Never used Tobacco Advance Directives: No Advance Directives Information Provided: Yes Physical Exam Vital Signs: Vital Signs: Last Vital Signs Temp 98.9 F 01/01/23 07:09 Pulse 88 01/01/23 07:09 Resp 16 01/01/23 07:09 BP 163/88 H 01/01/23 07:09 Pulse Ox 98 01/01/23 07:09 O2 Del Method 01/01/23 07:09 BMI result Body Mass Index 25.0 Vital signs have been reviewed as appeared to be correct. Blood pressure normal. Heart rate normal. Respiration rate normal. Temperature normal. Oxygen saturation normal. Appearance: Alert. Oriented X3. No acute distress. Head: Normal external exam. Normocephalic. Atraumatic. No Gomes signs noted. No raccoon eyes noted Eyes: PERRLA. EOMI. Conjunctiva and sclera normal. Eyelids normal. ENT: TM's Normal. Pharynx normal. Uvula midline. Moist mucous membranes. No trismus noted. No drooling noted. No muffled voice noted. Neck: Normal inspection. Neck supple. FROM. No adenopathy. Thyroid Normal. No meningeal signs. No neck mass noted. CVS: Normal heart rate and rhythm. Heart sound normal. No murmurs noted. Pulses normal throughout. Respiratory: No respiratory distress. Painless inspiration. Breath sounds normal. No wheezes/rales/rhonchi noted. Chest nontender. No accessory muscle usage noted or decreased air movement noted. Abdomen: Soft and nontender. Bowel sounds normal in all 4 quadrants. No distention noted. No organomegaly noted. No visible injury noted. Back: No CVA tenderness. Full range of motion noted. Skin: Skin warm and dry. Normal skin color. Normal skin turgor. No rashes/lesions/lacerations noted. Extremities: No lower extremity edema. Extremities exhibit normal range of motion. Extremities nontender. Neuro: Oriented X 3. Cranial nerve exam: II-XII are grossly intact No motor deficit. No sensory deficit. Reflexes normal. Course Course Course Narrative: [age] female well known to the ED staff for frequent visits to the ED patient is requesting Ativan for anxiety. Patient also have 1 point of headache over the right occipital area, no other symptoms. Patient felt better after was given Ativan and oxycodone. Medical Decision Making Differential Diagnosis Differential Diagnoses: The differential diagnosis associated with the presentation includes (Anxiety, medical screening exam, tension headache.) Discharge Plan Discharge Clinical Impression: Generalized anxiety disorder with panic attacks Patient Disposition: Home, Self-Care Instructions: Anxiety (ED) Prescriptions: No Action escitalopram oxalate 10 mg tablet 10 mg PO DAILY Qty: 30 1RF metoprolol succinate 50 mg tablet extended release 24 hr 50 mg PO DAILY Qty: 90 2RF aspirin 81 mg tablet,delayed release (DR/EC) 81 mg PO BEDTIME Qty: 90 2RF polyethylene glycol 3350 [Miralax] 17 gram/dose powder 17 g PO DAILY PRN (Reason: constipation) Qty: 238 0RF lisinopril 40 mg tablet 40 mg PO QPM Qty: 90 3RF acetaminophen 325 mg capsule 325 mg PO QID PRN (Reason: fever or pain) Qty: 30 0RF melatonin 10 mg tablet extended release 10 mg PO .nightly Qty: 5 0RF metoprolol succinate 50 mg tablet extended release 24 hr 50 mg PO DAILY Qty: 14 0RF ciprofloxacin-dexamethasone [Ciprodex] 0.3-0.1 % drops,suspension 4 drp otic (ears) BID 7 Days 0RF alprazolam 0.5 mg Tablet 0.5 mg PO TID PRN (Reason: Anxiety) hydroxyzine HCl 50 mg Tablet 50 mg PO TID PRN (Reason: Anxiety) mirtazapine 45 mg Tablet 45 mg PO BEDTIME multivitamin Capsule 1 cap PO DAILY sertraline 50 mg Tablet 50 mg PO BEDTIME aripiprazole 2 mg Tablet 2 mg PO BEDTIME cholecalciferol (vitamin D3) 25 mcg (1,000 unit) Tablet 25 mcg PO BID omeprazole 20 mg Tablet,Delayed Release (Dr/Ec) 20 mg PO DAILY linaclotide 145 mcg Capsule 145 mcg PO DAILY diphenhydramine HCl [Benadryl] 25 mg capsule 25 mg PO BEDTIME Qty: 7 0RF cefdinir 300 mg capsule 300 mg PO BID 10 Days Qty: 20 0RF ondansetron HCl [Zofran] 4 mg tablet 4 mg PO Q8H PRN (Reason: nausea and vomiting) Qty: 14 0RF cefuroxime axetil 500 mg tablet 500 mg PO BID 7 Days Qty: 14 0RF meclizine 25 mg tablet 25 mg PO TID PRN (Reason: dizziness) Qty: 10 0RF levofloxacin 500 mg tablet 500 mg PO DAILY 7 Days Qty: 7 0RF cefuroxime axetil 500 mg tablet 500 mg PO BID 10 Days Qty: 20 0RF levofloxacin 500 mg tablet 500 mg PO DAILY Qty: 6 0RF Rx Instructions: start on 08/26 ofloxacin 0.3 % drops 10 drp otic (ears) DAILY 7 Days Qty: 5 0RF Rx Instructions: can substitute eye drops if necessary hydrocortisone 2.5 % cream with perineal applicator 1 appl NJ BEDTIME PRN (Reason: hemorrhoids) Qty: 30 0RF Hemorrhoidal(PE-min oil-emma) 0.25-14-74.9 % ointment 1 appl NJ BID PRN (Reason: hemorrhoids) Qty: 56 0RF polyethylene glycol 3350 [Miralax] 17 gram/dose powder 17 g PO BID Qty: 119 0RF docusate sodium [Colace] 100 mg capsule 100 mg PO BID PRN (Reason: Constipation) Qty: 14 0RF Calmoseptine 0.44-20.6 % ointment 1 appl topical QID PRN (Reason: skin irritation) Qty: 113 0RF magnesium citrate Solution 150 ml PO DAILY PRN (Reason: constipation) Qty: 296 0RF Rx Instructions: take only when needed for constipation hydrocortisone acetate [Anucort-HC] 25 mg suppository 25 mg [place] BID Qty: 12 3RF zolpidem [Ambien] 5 mg tablet 5 mg PO BEDTIME PRN (Reason: sleep) Qty: 2 0RF zolpidem [Ambien] 5 mg tablet 5 mg PO BEDTIME PRN (Reason: sleep) Qty: 2 0RF Referrals: Name,MD Nitin [Primary Care Provider] -
[2023-01-01] MEDS: oxyCODONE HCl Immed Release 5 MG TABLET PO (07:18)
[2023-01-01] MEDS: LORazepam 1 MG TABLET PO (07:18)
== END 2023-01-01 08:24 | disposition home or self-care (01) ==
PROVIDERS: Emergency Provider Emergency Medicine; PCP Internal Medicine Geriatric Medicine
DX: R51.9 Headache, unspecified (principal); F41.1 Generalized anxiety disorder; F43.0 Acute stress reaction; Z79.899 Other long term (current) drug therapy
CPT/HCPCS: 99283; 99284

== ENCOUNTER 2023-01-01 21:45 | Emergency (ER) | payer OTHER, SELFPAY ==
--- NOTE | ~2023-01-01 | CT_ITS ---
EXAMINATION: CT HEAD WITHOUT CONTRAST CLINICAL INFORMATION: Headache COMPARISON: Head CT 09/20/2022 TECHNIQUE: Imaging was performed from the skull base to vertex without intravenous administration of contrast. This CT examination was performed using dose optimization techniques as appropriate, variously including the following: *Automated exposure control *Adjustment of mA and/or kV according to patient size (this includes techniques or standardized protocols for targeted exams where dose is matched to indication/reason for exam; i.e. extremities or head) *Use of iterative reconstruction technique Total exam dose length product: 676 mGy-cm FINDINGS: No intra or extra-axial fluid collection, hemorrhage, or mass. No ventriculomegaly. No midline shift or herniation. Basal cisterns are patent. Chatterjee-white matter differentiation is maintained. No territorial encephalomalacia. No significant volume loss. Patchy periventricular and deep white matter hypoattenuation is consistent with mild small vessel ischemic changes. No calvarial fracture or soft tissue abnormality. Partial opacification of the few left ethmoid air cells and inferior mastoid air cells bilaterally, nonspecific. Visualized paranasal sinuses and mastoid air cells are otherwise normally aerated. CT/CT head/brain wo IV con IMPRESSION: No acute intracranial pathology.
[2023-01-01 21:51] VITALS: BP 146/80; PULSE 86; O2SAT 99
[2023-01-01 22:16] LABS: Basophils Absolute Auto 0.1 X10*3/uL (0.0-0.2); Basophils Percent Auto 0.9 % (0-2); Eosinophils Absolute Auto 0.2 X10*3/uL (0.0-0.4); Eosinophils Percent Auto 2.4 % (0-4); Hemoglobin 10.6 g/dl (12.0-16.0); Imm Gran Abs Auto 0.03 X10*3/uL (0.00-0.03); Imm Gran Pct Auto 0.4 % (0.0-0.4); Lymphocytes Absolute Auto 1.8 X10*3/uL (1.2-4.9); Lymphocytes Percent Auto 25.3 % (20-40); MANUAL DIFF FLAG NO; Mean Corpuscular HGB Conc 33.1 g/dl (31.0-35.0); Mean Corpuscular Hemoglobin 27.7 pg (27.0-33.0); Mean Corpuscular Volume 83.6 fL (80.0-98.0); Mean Platelet Volume 8.6 fL (9.4-12.3); Monocytes Absolute Auto 0.8 X10*3/uL (0.1-1.2); Monocytes Percent Auto 10.7 % (2-11); Neutrophils Absolute Auto 4.3 x10*3/uL (2.0-8.3); Neutrophils Percent Auto 60.3 % (45-73); Platelet Count 294 X10*3/uL (160-400); Red Blood Count 3.83 X10*6/uL (4.20-5.50); Red Cell Distribution Width 14.6 % (11.0-16.0)
[2023-01-01 22:24] VITALS: BP 139/73; PULSE 78; RESP 18; TEMP 36.7; O2SAT 97; BMI 30.1
[2023-01-01 22:36] LABS: Alanine Aminotransferase 20 U/L (0-31); Albumin Level 3.9 g/dL (3.5-5.0); Alkaline Phosphatase 73 U/L (39-117); Anion Gap 13 (12-20); Aspartate Amino Transferase 29 U/L (5-31); Bilirubin Total 0.4 mg/dL (0.0-1.0); Blood Urea Nitrogen 21 mg/dL (9-16); Calcium 8.6 mg/dL (8.4-10.2); Carbon Dioxide 28 mmol/L (22-29); Chloride 97 mmol/L (96-108); Creatinine Clr Calc Pharmacy 44.4; Estimated Glomerular Filt Rate 53; Glucose Random 107 mg/dL (60-115); Potassium 5.3 mmol/L (3.3-5.1); Sodium 133 mmol/L (135-145)
--- NOTE | 2023-01-02 00:20 | ED_ITS ---
HPI - Headache General Chief Complaint: Headache Stated Complaint: headache Time Seen by Provider: 01/02/23 00:02 Source: patient Mode of arrival: EMS Limitations: no limitations History of Present Illness HPI Narrative: Patient's anxiety with chronic headaches been here multiple times comes here for headache with anxiety also has Xanax at home Related Data Home Medications Medication Instructions Recorded Confirmed alprazolam 0.5 mg tablet 0.5 mg PO TID PRN Anxiety 08/09/20 10/16/22 aripiprazole 2 mg tablet 2 mg PO BEDTIME 08/09/20 10/16/22 cholecalciferol (vitamin D3) 25 25 mcg PO BID 08/09/20 10/16/22 mcg (1,000 unit) tablet hydroxyzine HCl 50 mg tablet 50 mg PO TID PRN Anxiety 08/09/20 10/16/22 linaclotide 145 mcg capsule 145 mcg PO DAILY 08/09/20 10/16/22 mirtazapine 45 mg tablet 45 mg PO BEDTIME 08/09/20 10/16/22 multivitamin 1 cap PO DAILY 08/09/20 10/16/22 omeprazole 20 mg tablet,delayed 20 mg PO DAILY 08/09/20 10/16/22 release sertraline 50 mg tablet 50 mg PO BEDTIME 08/09/20 10/16/22 Previous Rx's Medication Instructions Recorded escitalopram oxalate 10 mg tablet 10 mg PO DAILY #30 tabs 09/06/20 acetaminophen 325 mg capsule 325 mg PO QID PRN fever or pain 09/16/20 #30 caps aspirin 81 mg tablet,delayed 81 mg PO BEDTIME #90 tabs 09/28/20 release metoprolol succinate 50 mg 50 mg PO DAILY #90 tabs 09/28/20 tablet,extended release 24 hr menthol 0.44 %-zinc oxide 20.6 % 1 appl topical QID PRN skin 12/13/20 topical ointment (Calmoseptine) irritation #113 grams magnesium citrate 150 ml PO DAILY PRN constipation 12/14/20 #296 mL diphenhydramine HCl 25 mg capsule 25 mg PO BEDTIME insomnia #7 caps 12/25/20 (Benadryl) melatonin 10 mg tablet,extended 10 mg PO .nightly #5 tabs 01/07/21 release cefdinir 300 mg capsule 300 mg PO BID Otitis media 10 days 04/14/21 #20 caps ondansetron HCl 4 mg tablet 4 mg PO Q8H PRN nausea and 04/14/21 (Zofran) vomiting #14 tabs metoprolol succinate 50 mg 50 mg PO DAILY #14 tabs 05/22/21 tablet,extended release 24 hr ciprofloxacin 0.3 %-dexamethasone 4 drp otic (ears) BID 7 days 05/26/21 0.1 % ear drops,suspension (Ciprodex) polyethylene glycol 3350 17 17 g PO DAILY PRN constipation 07/31/21 gram/dose oral powder (Miralax) #238 grams hydrocortisone acetate 25 mg 25 mg CA BID #12 ea 08/01/21 rectal suppository (Anucort-HC) cefuroxime axetil 500 mg tablet 500 mg PO BID 7 days #14 tabs 09/01/21 meclizine 25 mg tablet 25 mg PO TID PRN dizziness #10 tabs 09/01/21 zolpidem 5 mg tablet (Ambien) 5 mg PO BEDTIME PRN sleep #2 tabs 10/29/21 zolpidem 5 mg tablet (Ambien) 5 mg PO BEDTIME PRN sleep #2 tabs 10/29/21 lisinopril 40 mg tablet 40 mg PO QPM #90 tabs 06/06/22 levofloxacin 500 mg tablet 500 mg PO DAILY 7 days #7 tabs 07/23/22 levofloxacin 500 mg tablet 500 mg PO DAILY #6 tabs 08/25/22 ofloxacin 0.3 % ear drops 10 drp otic (ears) DAILY 7 days #5 08/25/22 mL hydrocortisone 2.5 % topical cream 1 appl CA BEDTIME PRN hemorrhoids 09/20/22 with perineal applicator #30 grams docusate sodium 100 mg capsule 100 mg PO BID PRN Constipation #14 12/06/22 (Colace) caps phenylephrine 0.25 %-mineral oil 1 appl CA BID PRN hemorrhoids #56 12/06/22 14 %-petrolatm 74.9 % rectal grams ointment (Hemorrhoidal(phenyleph-min oil-petrolat)) polyethylene glycol 3350 17 17 g PO BID #119 grams 12/06/22 gram/dose oral powder (Miralax) cefuroxime axetil 500 mg tablet 500 mg PO BID 10 days #20 tabs 12/16/22 Allergies Allergy/AdvReac Type Severity Reaction Status Date / Time penicillin G [Penicillin G] Allergy Severe ITCHY/RASH Verified 12/22/22 04:58 Sulfa (Sulfonamide Allergy Severe ITCHY,RASH, Verified 12/22/22 04:58 Antibiotics) rash [Sulfa (Sulfonamides)] trimethoprim [From Bactrim] Allergy Severe HIVES Verified 12/22/22 04:58 penicillin V Allergy Unknown rash Verified 12/22/22 04:58 sulfacetamide Allergy Unknown unknown Verified 12/22/22 04:58 [From Sulfacet-R] sulfur [From Sulfacet-R] Allergy Unknown unknown Verified 12/22/22 04:58 Review of Systems Review of Systems: Yes all other systems are reviewed and are negative PMFSH Past Medical History Medical History Anxiety Arthritis Bleeding hemorrhoids Chronic constipation Dementia Essential hypertension High blood pressure PAC (premature atrial contraction) PVC (premature ventricular contraction) SVT (supraventricular tachycardia) Vertigo Surgical History No pertinent past surgical history Social History Social History Alcohol intake: never Patient Tobacco Use Status: Never used Tobacco Advance Directives: No Advance Directives Information Provided: No Physical Exam 2 Vital Signs: Vital Signs: Last Vital Signs Temp 98.0 F 01/01/23 22:24 Pulse 78 01/01/23 22:24 Resp 18 01/01/23 22:24 BP 139/73 01/01/23 22:24 Pulse Ox 97 01/01/23 22:24 O2 Del Method 01/01/23 22:24 BMI result Body Mass Index 30.1 Appearance: Alert. Oriented X3. No acute distress. Eyes: PERRLA, No Nystagmus ENT: Pharynx normal. Oral Mucosa moist Neck: Normal inspection. Neck supple. CVS: Normal heart rate and rhythm. Pulses normal. Respiratory: No respiratory distress. Equal air entry bilateral, no wheezing/rales/rhonchi Abdomen: Soft and nontender. Bowel sounds are present, no mass palpable, no CVA tenderness Skin: Skin warm and dry. Normal skin color. Normal skin turgor. Extremities: No lower extremity edema. No calf tenderness Neuro: Oriented X 3. No motor deficit. No sensory deficit.No cerebellar signs , cranial nerves II-XII intact Medications Administered Discontinued Medications Generic Name Dose Route Start Last Admin Trade Name Beau PRN Reason Stop Dose Admin Oxycodone HCl 5 mg 01/02/23 00:21 01/02/23 00:39 Oxycodone Hcl Immed Release 5 Mg Tablet PO 01/02/23 00:22 5 mg ONCE ONE Administration Medical Decision Making Medical Decision Making [facility] Narrative: Patient chronic anxiety frequent ED visits for headaches discharge patient home advised to continue her own medication CT scan of the head was done by triage provider which was negative Lab Data [facility] Lab Attestation statement: I reviewed the patient's lab results. 01/01/23 22:09 01/01/23 22:09 Labs: Lab Results 01/01/23 01/01/23 Range/Units 22:09 22:09 WBC 7.0 (4.8-10.8) X10*3/uL RBC 3.83 L (4.20-5.50) X10*6/uL Hgb 10.6 L (12.0-16.0) g/dl Hct 32.0 L (37.0-47.0) % MCV 83.6 (80.0-98.0) fL MCH 27.7 (27.0-33.0) pg MCHC 33.1 (31.0-35.0) g/dl RDW 14.6 (11.0-16.0) % Plt Count 294 (160-400) X10*3/uL MPV 8.6 L (9.4-12.3) fL Immature Gran % (Auto) 0.4 (0.0-0.4) % Neut % (Auto) 60.3 (45-73) % Lymph % (Auto) 25.3 (20-40) % Pitt % (Auto) 10.7 (2-11) % Eos % (Auto) 2.4 (0-4) % Baso % (Auto) 0.9 (0-2) % Lymph # (Auto) 1.8 (1.2-4.9) X10*3/uL Pitt # (Auto) 0.8 (0.1-1.2) X10*3/uL Eos # (Auto) 0.2 (0.0-0.4) X10*3/uL Baso # (Auto) 0.1 (0.0-0.2) X10*3/uL Abs Immat Gran (auto) 0.03 (0.00-0.03) X10*3/uL Absolute Neuts (auto) 4.3 (2.0-8.3) x10*3/uL Absolute Nucleated RBC 0.000 (0.0-0.012) X10*3/uL Nucleated RBC % (auto) 0.0 (0.0-0.2) /100WBC Sodium 133 L (135-145) mmol/L Potassium 5.3 H D (3.3-5.1) mmol/L Chloride 97 (96-108) mmol/L Carbon Dioxide 28 (22-29) mmol/L Anion Gap 13 (12-20) BUN 21 H (9-16) mg/dL Creatinine 1.01 (0.5-1.4) mg/dL Estim Creat Clear Calc 44.4 Estimated GFR 53 Random Glucose 107 (60-115) mg/dL Calcium 8.6 D (8.4-10.2) mg/dL Magnesium 2.0 (1.6-2.6) mg/dL Total Bilirubin 0.4 (0.0-1.0) mg/dL AST 29 (5-31) U/L ALT 20 (0-31) U/L Alkaline Phosphatase 73 (39-117) U/L Total Protein 7.0 (6.5-8.0) g/dL Albumin 3.9 (3.5-5.0) g/dL Discharge Plan Discharge Clinical Impression: Headache Patient Disposition: Home, Self-Care Instructions: General Headache (ED) Additional Instructions: Take Tylenol/Motrin for headache Prescriptions: No Action escitalopram oxalate 10 mg tablet 10 mg PO DAILY Qty: 30 1RF metoprolol succinate 50 mg tablet extended release 24 hr 50 mg PO DAILY Qty: 90 2RF aspirin 81 mg tablet,delayed release (DR/EC) 81 mg PO BEDTIME Qty: 90 2RF polyethylene glycol 3350 [Miralax] 17 gram/dose powder 17 g PO DAILY PRN (Reason: constipation) Qty: 238 0RF lisinopril 40 mg tablet 40 mg PO QPM Qty: 90 3RF acetaminophen 325 mg capsule 325 mg PO QID PRN (Reason: fever or pain) Qty: 30 0RF melatonin 10 mg tablet extended release 10 mg PO .nightly Qty: 5 0RF metoprolol succinate 50 mg tablet extended release 24 hr 50 mg PO DAILY Qty: 14 0RF ciprofloxacin-dexamethasone [Ciprodex] 0.3-0.1 % drops,suspension 4 drp otic (ears) BID 7 Days 0RF alprazolam 0.5 mg Tablet 0.5 mg PO TID PRN (Reason: Anxiety) hydroxyzine HCl 50 mg Tablet 50 mg PO TID PRN (Reason: Anxiety) mirtazapine 45 mg Tablet 45 mg PO BEDTIME multivitamin Capsule 1 cap PO DAILY sertraline 50 mg Tablet 50 mg PO BEDTIME aripiprazole 2 mg Tablet 2 mg PO BEDTIME cholecalciferol (vitamin D3) 25 mcg (1,000 unit) Tablet 25 mcg PO BID omeprazole 20 mg Tablet,Delayed Release (Dr/Ec) 20 mg PO DAILY linaclotide 145 mcg Capsule 145 mcg PO DAILY diphenhydramine HCl [Benadryl] 25 mg capsule 25 mg PO BEDTIME Qty: 7 0RF cefdinir 300 mg capsule 300 mg PO BID 10 Days Qty: 20 0RF ondansetron HCl [Zofran] 4 mg tablet 4 mg PO Q8H PRN (Reason: nausea and vomiting) Qty: 14 0RF cefuroxime axetil 500 mg tablet 500 mg PO BID 7 Days Qty: 14 0RF meclizine 25 mg tablet 25 mg PO TID PRN (Reason: dizziness) Qty: 10 0RF levofloxacin 500 mg tablet 500 mg PO DAILY 7 Days Qty: 7 0RF cefuroxime axetil 500 mg tablet 500 mg PO BID 10 Days Qty: 20 0RF levofloxacin 500 mg tablet 500 mg PO DAILY Qty: 6 0RF Rx Instructions: start on 08/26 ofloxacin 0.3 % drops 10 drp otic (ears) DAILY 7 Days Qty: 5 0RF Rx Instructions: can substitute eye drops if necessary hydrocortisone 2.5 % cream with perineal applicator 1 appl CA BEDTIME PRN (Reason: hemorrhoids) Qty: 30 0RF Hemorrhoidal(PE-min oil-emma) 0.25-14-74.9 % ointment 1 appl CA BID PRN (Reason: hemorrhoids) Qty: 56 0RF polyethylene glycol 3350 [Miralax] 17 gram/dose powder 17 g PO BID Qty: 119 0RF docusate sodium [Colace] 100 mg capsule 100 mg PO BID PRN (Reason: Constipation) Qty: 14 0RF Calmoseptine 0.44-20.6 % ointment 1 appl topical QID PRN (Reason: skin irritation) Qty: 113 0RF magnesium citrate Solution 150 ml PO DAILY PRN (Reason: constipation) Qty: 296 0RF Rx Instructions: take only when needed for constipation hydrocortisone acetate [Anucort-HC] 25 mg suppository 25 mg CA BID Qty: 12 3RF zolpidem [Ambien] 5 mg tablet 5 mg PO BEDTIME PRN (Reason: sleep) Qty: 2 0RF zolpidem [Ambien] 5 mg tablet 5 mg PO BEDTIME PRN (Reason: sleep) Qty: 2 0RF Interventions: ED Discharge Assessment Last Done: 01/02/23 01:00 Discharge Date/Time: 01/02/23 01:00
[2023-01-02] MEDS: oxyCODONE HCl Immed Release 5 MG TABLET PO (00:39)
== END 2023-01-02 01:00 | disposition home or self-care (01) ==
PROVIDERS: Physician Assistant; Emergency Provider Internal Medicine; PCP Internal Medicine Geriatric Medicine
DX: R51.9 Headache, unspecified (principal); Z79.899 Other long term (current) drug therapy
CPT/HCPCS: 36415; 70450; 80053; 83735; 85025; 99283; 99284

== ENCOUNTER 2023-01-04 04:11 | Emergency (ER) | payer OTHER, SELFPAY ==
[2023-01-04 04:25] VITALS: BP 169/72; PULSE 88; RESP 18; TEMP 37.1; O2SAT 97; BMI 24.3
[2023-01-04 05:14] VITALS: BP 140/66; PULSE 67; RESP 18
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
[2023-01-04] MEDS: ALPRAZolam 0.25 MG TABLET PO (05:50)
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
== END 2023-01-04 05:53 | disposition home or self-care (01) ==
PROVIDERS: Emergency Provider Emergency Medicine; PCP Internal Medicine Geriatric Medicine
DX: F41.9 Anxiety disorder, unspecified (principal); I10 Essential (primary) hypertension; Z79.899 Other long term (current) drug therapy
CPT/HCPCS: 99282; 99283

== ENCOUNTER 2023-01-05 23:16 | Emergency (ER) | payer OTHER, SELFPAY ==
[2023-01-05 23:30] VITALS: BP 126/81; BP 162/78; PULSE 166; PULSE 89; RESP 16; TEMP 36.2; O2SAT 98; BMI 29.4
[2023-01-05 23:55] VITALS: BP 154/81; PULSE 72; RESP 16; TEMP 36.7; O2SAT 97
[2023-01-06] MEDS: hydrOXYzine HCL 25 MG TABLET PO (01:42)
--- NOTE | 2023-01-06 01:51 | PC.NURSE ---
pt a&o, no sob or chest pain, pt resting in bed at this time. Will continue to monitor.
[2023-01-06 02:00] VITALS: BP 152/74; PULSE 68; RESP 16; TEMP 36.9; O2SAT 96
--- NOTE | 2023-01-06 03:12 | ED.ANXIETY ---
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 She states that her prescription will not be filled until 10:00 this morning. She also complains of left ear ringing that she has an appointment with ENT for. She denies any associated fevers, chills. Related Data Home Medications Medication Instructions Recorded Confirmed alprazolam 0.5 mg tablet 0.5 mg PO TID PRN Anxiety 08/09/20 10/16/22 aripiprazole 2 mg tablet 2 mg PO BEDTIME 08/09/20 10/16/22 cholecalciferol (vitamin D3) 25 25 mcg PO BID 08/09/20 10/16/22 mcg (1,000 unit) tablet hydroxyzine HCl 50 mg tablet 50 mg PO TID PRN Anxiety 08/09/20 10/16/22 linaclotide 145 mcg capsule 145 mcg PO DAILY 08/09/20 10/16/22 mirtazapine 45 mg tablet 45 mg PO BEDTIME 08/09/20 10/16/22 multivitamin 1 cap PO DAILY 08/09/20 10/16/22 omeprazole 20 mg tablet,delayed 20 mg PO DAILY 08/09/20 10/16/22 release sertraline 50 mg tablet 50 mg PO BEDTIME 08/09/20 10/16/22 Previous Rx's Medication Instructions Recorded escitalopram oxalate 10 mg tablet 10 mg PO DAILY #30 tabs 09/06/20 acetaminophen 325 mg capsule 325 mg PO QID PRN fever or pain 09/16/20 #30 caps aspirin 81 mg tablet,delayed 81 mg PO BEDTIME #90 tabs 09/28/20 release metoprolol succinate 50 mg 50 mg PO DAILY #90 tabs 09/28/20 tablet,extended release 24 hr menthol 0.44 %-zinc oxide 20.6 % 1 appl topical QID PRN skin 12/13/20 topical ointment (Calmoseptine) irritation #113 grams magnesium citrate 150 ml PO DAILY PRN constipation 12/14/20 #296 mL diphenhydramine HCl 25 mg capsule 25 mg PO BEDTIME insomnia #7 caps 12/25/20 (Benadryl) melatonin 10 mg tablet,extended 10 mg PO .nightly #5 tabs 01/07/21 release cefdinir 300 mg capsule 300 mg PO BID Otitis media 10 days 04/14/21 #20 caps ondansetron HCl 4 mg tablet 4 mg PO Q8H PRN nausea and 04/14/21 (Zofran) vomiting #14 tabs metoprolol succinate 50 mg 50 mg PO DAILY #14 tabs 05/22/21 tablet,extended release 24 hr ciprofloxacin 0.3 %-dexamethasone 4 drp otic (ears) BID 7 days 05/26/21 0.1 % ear drops,suspension (Ciprodex) polyethylene glycol 3350 17 17 g PO DAILY PRN constipation 07/31/21 gram/dose oral powder (Miralax) #238 grams hydrocortisone acetate 25 mg 25 mg [place] BID #12 ea 08/01/21 rectal suppository (Anucort-HC) cefuroxime axetil 500 mg tablet 500 mg PO BID 7 days #14 tabs 09/01/21 meclizine 25 mg tablet 25 mg PO TID PRN dizziness #10 tabs 09/01/21 zolpidem 5 mg tablet (Ambien) 5 mg PO BEDTIME PRN sleep #2 tabs 10/29/21 zolpidem 5 mg tablet (Ambien) 5 mg PO BEDTIME PRN sleep #2 tabs 10/29/21 lisinopril 40 mg tablet 40 mg PO QPM #90 tabs 06/06/22 levofloxacin 500 mg tablet 500 mg PO DAILY 7 days #7 tabs 07/23/22 levofloxacin 500 mg tablet 500 mg PO DAILY #6 tabs 08/25/22 ofloxacin 0.3 % ear drops 10 drp otic (ears) DAILY 7 days #5 08/25/22 mL hydrocortisone 2.5 % topical cream 1 appl [place] BEDTIME PRN hemorrhoids 09/20/22 with perineal applicator #30 grams docusate sodium 100 mg capsule 100 mg PO BID PRN Constipation #14 12/06/22 (Colace) caps phenylephrine 0.25 %-mineral oil 1 appl [place] BID PRN hemorrhoids #56 12/06/22 14 %-petrolatm 74.9 % rectal grams ointment (Hemorrhoidal(phenyleph-min oil-petrolat)) polyethylene glycol 3350 17 17 g PO BID #119 grams 12/06/22 gram/dose oral powder (Miralax) cefuroxime axetil 500 mg tablet 500 mg PO BID 10 days #20 tabs 12/16/22 alprazolam 0.25 mg tablet 0.25 mg PO QID #7 tabs 01/04/23 ofloxacin 0.3 % ear drops 5 drp otic (ear) left BID 7 days 01/06/23 #5 mL Allergies Allergy/AdvReac Type Severity Reaction Status Date / Time penicillin G [Penicillin G] Allergy Severe ITCHY/RASH Verified 01/04/23 04:25 Sulfa (Sulfonamide Allergy Severe ITCHY,RASH, Verified 01/04/23 04:25 Antibiotics) rash [Sulfa (Sulfonamides)] trimethoprim [From Bactrim] Allergy Severe HIVES Verified 01/04/23 04:25 penicillin V Allergy Unknown rash Verified 01/04/23 04:25 sulfacetamide Allergy Unknown unknown Verified 01/04/23 04:25 [From Sulfacet-R] sulfur [From Sulfacet-R] Allergy Unknown unknown Verified 01/04/23 04:25 Review of Systems Review of Systems: Pertinent positives and negatives as stated in HPI PMFSH Past Medical History Source: nursing notes reviewed Medical History Anxiety Arthritis Bleeding hemorrhoids Chronic constipation Dementia Essential hypertension High blood pressure PAC (premature atrial contraction) PVC (premature ventricular contraction) SVT (supraventricular tachycardia) Vertigo Surgical History No pertinent past surgical history Social History Social History Alcohol intake: never Patient Tobacco Use Status: Never used Tobacco Advance Directives: No Advance Directives Information Provided: Yes Physical Exam Vital Signs: Vital Signs: Last Vital Signs Temp 98.4 F 01/06/23 02:00 Pulse 68 01/06/23 02:00 Resp 16 01/06/23 02:00 BP 152/74 H 01/06/23 02:00 Pulse Ox 96 01/06/23 02:00 O2 Del Method 01/06/23 02:00 BMI result Body Mass Index 29.4 VITAL SIGNS: Reviewed. GENERAL: Well developed, well nourished, in no acute distress. HEAD: Normocephalic/atraumatic EYES: PERRLA, EOMI EARS: RIGHT- Ext canals without abnormality, TMs non-bulging and non-erythematous; LEFT- Ext canals without abnormality, TMs with what appears to be perforation of unknown age NOSE: Nares patent bilateral OROPHARYNX: no oral lesions noted, posterior pharynx clear NECK: Supple, no adenopathy LUNGS: Normal breath sounds. No adventitious sounds or accessory muscle use. SpO2<96> CARDIOVASCULAR: Regular rate and rhythm without noted murmurs ABDOMEN: Soft, non-tender, non-distended with bowel sounds. MUSCULOSKELETAL: No tenderness, deformities, or effusions noted on gross inspection. EXTREMITIES: No cyanosis, clubbing or edema. SKIN: Inspection of the skin reveals no rashes NEUROLOGIC: Alert and oriented x 4. Strength and sensation to light touch were grossly intact x 4. Medications Administered Discontinued Medications Generic Name Dose Route Start Last Admin Trade Name Freq PRN Reason Stop Dose Admin Hydroxyzine HCl 25 mg 01/06/23 01:20 01/06/23 01:42 Hydroxyzine Hcl 25 Mg Tablet PO 01/06/23 01:21 25 mg ONCE ONE Administration Medical Decision Making Medical Decision Making MDM Narrative: 77-year-old female with clinical an history presentation of anxiety, provided patient with hydroxyzine and will discharge her on a short course antibiotic drops for her left ear. All plans have been discussed with her at bedside. Differential Diagnosis Differential Diagnoses: The differential diagnosis associated with the presentation includes Please see the discussion above Chronic Conditions Patient?s care impacted by: Hypertension Discharge Plan Discharge Clinical Impression: Generalized anxiety disorder with panic attacks Patient Disposition: Home, Self-Care Instructions: Generalized Anxiety Disorder (ED), Anxiety (ED) Additional Instructions: 1. Reanudar todos los medicamentos caseros seg?n lo prescrito. 2. Le recomendamos que germán un seguimiento con clark proveedor de atenci?n primaria llamando al consultorio esta ma?delmy y programando suzy kvng para suzy reevaluaci?n. 3. Mantenga clark kvng programada con el otorrinolaring?logo con respecto a clark o?do Regrese a la italo de emergencias si los s?ntomas empeoran. 1. Resume all home medications as prescribed. 2. Recommend that you follow-up with your primary care provider by calling the office this morning and setting up an appointment for re-evaluation. 3. Keep your scheduled appointment with the ear, nose, and throat doctor regarding your ear Return to the ER for any worsening symptoms. Prescriptions: New ofloxacin 0.3 % drops 5 drp otic (ear) left BID 7 Days Qty: 5 0RF No Action escitalopram oxalate 10 mg tablet 10 mg PO DAILY Qty: 30 1RF metoprolol succinate 50 mg tablet extended release 24 hr 50 mg PO DAILY Qty: 90 2RF aspirin 81 mg tablet,delayed release (DR/EC) 81 mg PO BEDTIME Qty: 90 2RF polyethylene glycol 3350 [Miralax] 17 gram/dose powder 17 g PO DAILY PRN (Reason: constipation) Qty: 238 0RF lisinopril 40 mg tablet 40 mg PO QPM Qty: 90 3RF acetaminophen 325 mg capsule 325 mg PO QID PRN (Reason: fever or pain) Qty: 30 0RF melatonin 10 mg tablet extended release 10 mg PO .nightly Qty: 5 0RF metoprolol succinate 50 mg tablet extended release 24 hr 50 mg PO DAILY Qty: 14 0RF ciprofloxacin-dexamethasone [Ciprodex] 0.3-0.1 % drops,suspension 4 drp otic (ears) BID 7 Days 0RF alprazolam 0.5 mg Tablet 0.5 mg PO TID PRN (Reason: Anxiety) hydroxyzine HCl 50 mg Tablet 50 mg PO TID PRN (Reason: Anxiety) mirtazapine 45 mg Tablet 45 mg PO BEDTIME multivitamin Capsule 1 cap PO DAILY sertraline 50 mg Tablet 50 mg PO BEDTIME aripiprazole 2 mg Tablet 2 mg PO BEDTIME cholecalciferol (vitamin D3) 25 mcg (1,000 unit) Tablet 25 mcg PO BID omeprazole 20 mg Tablet,Delayed Release (Dr/Ec) 20 mg PO DAILY linaclotide 145 mcg Capsule 145 mcg PO DAILY diphenhydramine HCl [Benadryl] 25 mg capsule 25 mg PO BEDTIME Qty: 7 0RF cefdinir 300 mg capsule 300 mg PO BID 10 Days Qty: 20 0RF ondansetron HCl [Zofran] 4 mg tablet 4 mg PO Q8H PRN (Reason: nausea and vomiting) Qty: 14 0RF cefuroxime axetil 500 mg tablet 500 mg PO BID 7 Days Qty: 14 0RF meclizine 25 mg tablet 25 mg PO TID PRN (Reason: dizziness) Qty: 10 0RF levofloxacin 500 mg tablet 500 mg PO DAILY 7 Days Qty: 7 0RF cefuroxime axetil 500 mg tablet 500 mg PO BID 10 Days Qty: 20 0RF alprazolam 0.25 mg tablet 0.25 mg PO QID Qty: 7 0RF levofloxacin 500 mg tablet 500 mg PO DAILY Qty: 6 0RF Rx Instructions: start on 08/26 ofloxacin 0.3 % drops 10 drp otic (ears) DAILY 7 Days Qty: 5 0RF Rx Instructions: can substitute eye drops if necessary hydrocortisone 2.5 % cream with perineal applicator 1 appl AK BEDTIME PRN (Reason: hemorrhoids) Qty: 30 0RF Hemorrhoidal(PE-min oil-emma) 0.25-14-74.9 % ointment 1 appl AK BID PRN (Reason: hemorrhoids) Qty: 56 0RF polyethylene glycol 3350 [Miralax] 17 gram/dose powder 17 g PO BID Qty: 119 0RF docusate sodium [Colace] 100 mg capsule 100 mg PO BID PRN (Reason: Constipation) Qty: 14 0RF Calmoseptine 0.44-20.6 % ointment 1 appl topical QID PRN (Reason: skin irritation) Qty: 113 0RF magnesium citrate Solution 150 ml PO DAILY PRN (Reason: constipation) Qty: 296 0RF Rx Instructions: take only when needed for constipation hydrocortisone acetate [Anucort-HC] 25 mg suppository 25 mg AK BID Qty: 12 3RF zolpidem [Ambien] 5 mg tablet 5 mg PO BEDTIME PRN (Reason: sleep) Qty: 2 0RF zolpidem [Ambien] 5 mg tablet 5 mg PO BEDTIME PRN (Reason: sleep) Qty: 2 0RF Print Language: Thai
[2023-01-06] MEDS: diphenhydrAMINE HCL 25 MG CAPSULE PO (03:33)
--- NOTE | 2023-01-06 03:52 | PC.NURSE ---
Reviewed discharge instructions, pt verbalized understanding. no sign of distress.
== END 2023-01-06 03:52 | disposition home or self-care (01) ==
PROVIDERS: Emergency Provider Student in an Organized Health Care Education/Training Program
DX: F41.1 Generalized anxiety disorder (principal); F41.0 Panic disorder [episodic paroxysmal anxiety]; I10 Essential (primary) hypertension; Z79.899 Other long term (current) drug therapy
CPT/HCPCS: 99283; 99284

== ENCOUNTER 2023-01-11 12:22 | Emergency (ER) | payer OTHER, SELFPAY ==
[2023-01-11 12:35] VITALS: BP 160/80; BP 160/90; PULSE 70; PULSE 77; RESP 16; TEMP 37.1; O2SAT 100; O2SAT 99; BMI 29.9
--- NOTE | 2023-01-11 12:55 | ED.ANXIETY ---
HPI - Anxiety General Chief Complaint: Anxiety Stated Complaint: Nausea per EMS Time Seen by Provider: 01/11/23 12:28 Source: patient Mode of arrival: EMS Limitations: language barrier (Setswana-speaking translator/interpreter utilized) History of Present Illness HPI narrative: Patient presents to the Emergency Department reporting anxiety. She states that she was visiting her sister in [facility], she left very yesterday and for got her anxiety medication. She states that she is unable to cook pickled meat medication from pharmacy until Friday. Related Data Home Medications Medication Instructions Recorded Confirmed alprazolam 0.5 mg tablet 0.5 mg PO TID PRN Anxiety 08/09/20 10/16/22 aripiprazole 2 mg tablet 2 mg PO BEDTIME 08/09/20 10/16/22 cholecalciferol (vitamin D3) 25 25 mcg PO BID 08/09/20 10/16/22 mcg (1,000 unit) tablet hydroxyzine HCl 50 mg tablet 50 mg PO TID PRN Anxiety 08/09/20 10/16/22 linaclotide 145 mcg capsule 145 mcg PO DAILY 08/09/20 10/16/22 mirtazapine 45 mg tablet 45 mg PO BEDTIME 08/09/20 10/16/22 multivitamin 1 cap PO DAILY 08/09/20 10/16/22 omeprazole 20 mg tablet,delayed 20 mg PO DAILY 08/09/20 10/16/22 release sertraline 50 mg tablet 50 mg PO BEDTIME 08/09/20 10/16/22 Previous Rx's Medication Instructions Recorded escitalopram oxalate 10 mg tablet 10 mg PO DAILY #30 tabs 09/06/20 acetaminophen 325 mg capsule 325 mg PO QID PRN fever or pain 09/16/20 #30 caps aspirin 81 mg tablet,delayed 81 mg PO BEDTIME #90 tabs 09/28/20 release metoprolol succinate 50 mg 50 mg PO DAILY #90 tabs 09/28/20 tablet,extended release 24 hr menthol 0.44 %-zinc oxide 20.6 % 1 appl topical QID PRN skin 12/13/20 topical ointment (Calmoseptine) irritation #113 grams magnesium citrate 150 ml PO DAILY PRN constipation 12/14/20 #296 mL diphenhydramine HCl 25 mg capsule 25 mg PO BEDTIME insomnia #7 caps 12/25/20 (Benadryl) melatonin 10 mg tablet,extended 10 mg PO .nightly #5 tabs 01/07/21 release cefdinir 300 mg capsule 300 mg PO BID Otitis media 10 days 04/14/21 #20 caps ondansetron HCl 4 mg tablet 4 mg PO Q8H PRN nausea and 04/14/21 (Zofran) vomiting #14 tabs metoprolol succinate 50 mg 50 mg PO DAILY #14 tabs 05/22/21 tablet,extended release 24 hr ciprofloxacin 0.3 %-dexamethasone 4 drp otic (ears) BID 7 days 05/26/21 0.1 % ear drops,suspension (Ciprodex) polyethylene glycol 3350 17 17 g PO DAILY PRN constipation 07/31/21 gram/dose oral powder (Miralax) #238 grams hydrocortisone acetate 25 mg 25 mg [place] BID #12 ea 08/01/21 rectal suppository (Anucort-HC) cefuroxime axetil 500 mg tablet 500 mg PO BID 7 days #14 tabs 09/01/21 meclizine 25 mg tablet 25 mg PO TID PRN dizziness #10 tabs 09/01/21 zolpidem 5 mg tablet (Ambien) 5 mg PO BEDTIME PRN sleep #2 tabs 10/29/21 zolpidem 5 mg tablet (Ambien) 5 mg PO BEDTIME PRN sleep #2 tabs 10/29/21 lisinopril 40 mg tablet 40 mg PO QPM #90 tabs 06/06/22 levofloxacin 500 mg tablet 500 mg PO DAILY 7 days #7 tabs 07/23/22 levofloxacin 500 mg tablet 500 mg PO DAILY #6 tabs 08/25/22 ofloxacin 0.3 % ear drops 10 drp otic (ears) DAILY 7 days #5 08/25/22 mL hydrocortisone 2.5 % topical cream 1 appl [place] BEDTIME PRN hemorrhoids 09/20/22 with perineal applicator #30 grams docusate sodium 100 mg capsule 100 mg PO BID PRN Constipation #14 12/06/22 (Colace) caps phenylephrine 0.25 %-mineral oil 1 appl [place] BID PRN hemorrhoids #56 12/06/22 14 %-petrolatm 74.9 % rectal grams ointment (Hemorrhoidal(phenyleph-min oil-petrolat)) polyethylene glycol 3350 17 17 g PO BID #119 grams 12/06/22 gram/dose oral powder (Miralax) cefuroxime axetil 500 mg tablet 500 mg PO BID 10 days #20 tabs 12/16/22 alprazolam 0.25 mg tablet 0.25 mg PO QID #7 tabs 01/04/23 ofloxacin 0.3 % ear drops 5 drp otic (ear) left BID 7 days 01/06/23 #5 mL alprazolam 0.25 mg tablet 0.25 mg PO TID PRN anxiety #7 tabs 01/11/23 Allergies Allergy/AdvReac Type Severity Reaction Status Date / Time penicillin G [Penicillin G] Allergy Severe ITCHY/RASH Verified 01/04/23 04:25 Sulfa (Sulfonamide Allergy Severe ITCHY,RASH, Verified 01/04/23 04:25 Antibiotics) rash [Sulfa (Sulfonamides)] trimethoprim [From Bactrim] Allergy Severe HIVES Verified 01/04/23 04:25 penicillin V Allergy Unknown rash Verified 01/04/23 04:25 sulfacetamide Allergy Unknown unknown Verified 01/04/23 04:25 [From Sulfacet-R] sulfur [From Sulfacet-R] Allergy Unknown unknown Verified 01/04/23 04:25 Review of Systems Review of Systems: Yes all other systems are reviewed and are negative PMFSH Past Medical History Attestation statement: The following information was validated with the patient. Source: old records reviewed Medical History Anxiety Arthritis Bleeding hemorrhoids Chronic constipation Dementia Essential hypertension High blood pressure PAC (premature atrial contraction) PVC (premature ventricular contraction) SVT (supraventricular tachycardia) Vertigo Surgical History No pertinent past surgical history Social History Social History Alcohol intake: never Patient Tobacco Use Status: Never used Tobacco Advance Directives: No Advance Directives Information Provided: Yes Physical Exam Vital Signs: Vital Signs: Last Vital Signs Temp 98.8 F 01/11/23 12:35 Pulse 77 01/11/23 12:35 Resp 16 01/11/23 12:35 BP 160/80 H 01/11/23 12:35 Pulse Ox 99 01/11/23 12:35 O2 Del Method 01/11/23 12:35 BMI result Body Mass Index 29.9 Appearance: Alert.?Oriented to person, place and time. No acute distress.?Normal affect. Eyes: Pupils equal, round and reactive to light.? ENT: Pharynx normal.?? Neck: Normal inspection.? Neck supple.?? CVS: Heart sounds normal. Normal heart rate and rhythm.? Pulses normal.?? Respiratory: No respiratory distress.? Lung sounds clear to auscultation bilaterally?? Abdomen: Soft and non-tender. Normoactive bowel sounds. ?? Skin: Skin warm and dry.? Normal skin color.? Extremities: No lower extremity edema. Neuro: Moves all extremities spontaneously. Sensation intact bilaterally. No focal neuro deficits. Ambulates with normal steady gait. Medications Administered Discontinued Medications Generic Name Dose Route Start Last Admin Trade Name Freq PRN Reason Stop Dose Admin Alprazolam 0.25 mg 01/11/23 13:14 01/11/23 13:44 Alprazolam 0.25 Mg Tablet PO 01/11/23 13:15 0.25 mg ONCE ONE Administration Medical Decision Making Medical Decision Making [facility] Narrative: Patient is a 77-year-old female with past medical history of anxiety presenting to the emergency department requesting medication refill. Upon review of patient's prior emergency department visits she had a similar occurrence 01/04/2023 where she left her medications at her sister's house she was provided with a 2 day refill, she presented 2 days following on 01/06/2023 requesting additional alprazolam a she was unable to fill the medication until later on that day. I had an at length discussion with patient at this time. Advised that I will prescribe 2 days worth of medication given concern for potential benzodiazepine withdrawal. However I emphasized the importance that she needs to be very mindful and remembering her medications if she is going to be taking them out of the home. Additionally, we discussed concerns and potential complications of medication overuse. I further informed her that should circumstances like this continue to occur, it is not guarantee that on future visits to the emergency department she will be given a prescription for this medication as it is a controlled substance. She verbalizes understanding, she states that she is going to be more careful, her sister is ill with cancer by her report, so she states that she is typically very upset and anxious when leaving her home. Differential Diagnosis Differential Diagnoses: The differential diagnosis associated with the presentation includes (Anxiety, benzodiazepine withdrawal, medication misuse) Discharge Plan Discharge Clinical Impression: Acute anxiety Patient Disposition: Home, Self-Care Instructions: Anxiety (ED) Additional Instructions: As we discussed, it is very important that you remember to keep her medication with you at all times especially few are going to be traveling. I have sent a prescription to the pharmacy that will cover you until you are able to obtain your refill on Friday. Prescriptions: New alprazolam 0.25 mg tablet 0.25 mg PO TID PRN (Reason: anxiety) Qty: 7 0RF No Action escitalopram oxalate 10 mg tablet 10 mg PO DAILY Qty: 30 1RF metoprolol succinate 50 mg tablet extended release 24 hr 50 mg PO DAILY Qty: 90 2RF aspirin 81 mg tablet,delayed release (DR/EC) 81 mg PO BEDTIME Qty: 90 2RF polyethylene glycol 3350 [Miralax] 17 gram/dose powder 17 g PO DAILY PRN (Reason: constipation) Qty: 238 0RF lisinopril 40 mg tablet 40 mg PO QPM Qty: 90 3RF acetaminophen 325 mg capsule 325 mg PO QID PRN (Reason: fever or pain) Qty: 30 0RF melatonin 10 mg tablet extended release 10 mg PO .nightly Qty: 5 0RF metoprolol succinate 50 mg tablet extended release 24 hr 50 mg PO DAILY Qty: 14 0RF ciprofloxacin-dexamethasone [Ciprodex] 0.3-0.1 % drops,suspension 4 drp otic (ears) BID 7 Days 0RF alprazolam 0.5 mg Tablet 0.5 mg PO TID PRN (Reason: Anxiety) hydroxyzine HCl 50 mg Tablet 50 mg PO TID PRN (Reason: Anxiety) mirtazapine 45 mg Tablet 45 mg PO BEDTIME multivitamin Capsule 1 cap PO DAILY sertraline 50 mg Tablet 50 mg PO BEDTIME aripiprazole 2 mg Tablet 2 mg PO BEDTIME cholecalciferol (vitamin D3) 25 mcg (1,000 unit) Tablet 25 mcg PO BID omeprazole 20 mg Tablet,Delayed Release (Dr/Ec) 20 mg PO DAILY linaclotide 145 mcg Capsule 145 mcg PO DAILY diphenhydramine HCl [Benadryl] 25 mg capsule 25 mg PO BEDTIME Qty: 7 0RF cefdinir 300 mg capsule 300 mg PO BID 10 Days Qty: 20 0RF ondansetron HCl [Zofran] 4 mg tablet 4 mg PO Q8H PRN (Reason: nausea and vomiting) Qty: 14 0RF cefuroxime axetil 500 mg tablet 500 mg PO BID 7 Days Qty: 14 0RF meclizine 25 mg tablet 25 mg PO TID PRN (Reason: dizziness) Qty: 10 0RF levofloxacin 500 mg tablet 500 mg PO DAILY 7 Days Qty: 7 0RF cefuroxime axetil 500 mg tablet 500 mg PO BID 10 Days Qty: 20 0RF alprazolam 0.25 mg tablet 0.25 mg PO QID Qty: 7 0RF levofloxacin 500 mg tablet 500 mg PO DAILY Qty: 6 0RF Rx Instructions: start on 08/26 ofloxacin 0.3 % drops 10 drp otic (ears) DAILY 7 Days Qty: 5 0RF Rx Instructions: can substitute eye drops if necessary hydrocortisone 2.5 % cream with perineal applicator 1 appl [place] BEDTIME PRN (Reason: hemorrhoids) Qty: 30 0RF Hemorrhoidal(PE-min oil-emma) 0.25-14-74.9 % ointment 1 appl [place] BID PRN (Reason: hemorrhoids) Qty: 56 0RF polyethylene glycol 3350 [Miralax] 17 gram/dose powder 17 g PO BID Qty: 119 0RF docusate sodium [Colace] 100 mg capsule 100 mg PO BID PRN (Reason: Constipation) Qty: 14 0RF ofloxacin 0.3 % drops 5 drp otic (ear) left BID 7 Days Qty: 5 0RF Calmoseptine 0.44-20.6 % ointment 1 appl topical QID PRN (Reason: skin irritation) Qty: 113 0RF magnesium citrate Solution 150 ml PO DAILY PRN (Reason: constipation) Qty: 296 0RF Rx Instructions: take only when needed for constipation hydrocortisone acetate [Anucort-HC] 25 mg suppository 25 mg [place] BID Qty: 12 3RF zolpidem [Ambien] 5 mg tablet 5 mg PO BEDTIME PRN (Reason: sleep) Qty: 2 0RF zolpidem [Ambien] 5 mg tablet 5 mg PO BEDTIME PRN (Reason: sleep) Qty: 2 0RF Referrals: Name,MD Nitin [Primary Care Provider] -
[2023-01-11] MEDS: ALPRAZolam 0.25 MG TABLET PO (13:44)
== END 2023-01-11 13:55 | disposition home or self-care (01) ==
PROVIDERS: Emergency Provider Emergency Medicine; PCP Internal Medicine Geriatric Medicine
DX: F41.9 Anxiety disorder, unspecified (principal); I10 Essential (primary) hypertension; Z79.82 Long term (current) use of aspirin; Z79.899 Other long term (current) drug therapy
CPT/HCPCS: 99282; 99283

== ENCOUNTER 2023-02-02 02:58 | Emergency (ER) | payer OTHER, SELFPAY ==
[2023-02-02 03:20] VITALS: BP 157/78; BP 164/82; PULSE 71; PULSE 74; RESP 16; TEMP 37.2; O2SAT 96; O2SAT 97; BMI 27.1
--- NOTE | 2023-02-02 03:25 | ED_ITS ---
HPI - General Adult General Chief complaint: Anxiety Stated complaint: HYPERTENSION, RIDDLE, ANXIETY Time Seen by Provider: 02/02/23 03:15 Source: patient Mode of arrival: EMS Limitations: no limitations History of Present Illness HPI narrative: 77-year-old female is presenting for medication refill. Patient ran out of her alprazolam take 0.25 mg 4 times a day. Patient has noted that her blood pressure is elevated. She has been taking Tylenol for some mild head discomfort. Patient denies any significant anxiety at this time. She denies any suicidal homicidal ideation. Otherwise she feels well. Related Data Home Medications Medication Instructions Recorded Confirmed alprazolam 0.5 mg tablet 0.5 mg PO TID PRN Anxiety 08/09/20 10/16/22 aripiprazole 2 mg tablet 2 mg PO BEDTIME 08/09/20 10/16/22 cholecalciferol (vitamin D3) 25 25 mcg PO BID 08/09/20 10/16/22 mcg (1,000 unit) tablet hydroxyzine HCl 50 mg tablet 50 mg PO TID PRN Anxiety 08/09/20 10/16/22 linaclotide 145 mcg capsule 145 mcg PO DAILY 08/09/20 10/16/22 mirtazapine 45 mg tablet 45 mg PO BEDTIME 08/09/20 10/16/22 multivitamin 1 cap PO DAILY 08/09/20 10/16/22 omeprazole 20 mg tablet,delayed 20 mg PO DAILY 08/09/20 10/16/22 release sertraline 50 mg tablet 50 mg PO BEDTIME 08/09/20 10/16/22 Previous Rx's Medication Instructions Recorded escitalopram oxalate 10 mg tablet 10 mg PO DAILY #30 tabs 09/06/20 acetaminophen 325 mg capsule 325 mg PO QID PRN fever or pain 09/16/20 #30 caps aspirin 81 mg tablet,delayed 81 mg PO BEDTIME #90 tabs 09/28/20 release metoprolol succinate 50 mg 50 mg PO DAILY #90 tabs 09/28/20 tablet,extended release 24 hr menthol 0.44 %-zinc oxide 20.6 % 1 appl topical QID PRN skin 12/13/20 topical ointment (Calmoseptine) irritation #113 grams magnesium citrate 150 ml PO DAILY PRN constipation 12/14/20 #296 mL diphenhydramine HCl 25 mg capsule 25 mg PO BEDTIME insomnia #7 caps 12/25/20 (Benadryl) melatonin 10 mg tablet,extended 10 mg PO .nightly #5 tabs 01/07/21 release cefdinir 300 mg capsule 300 mg PO BID Otitis media 10 days 04/14/21 #20 caps ondansetron HCl 4 mg tablet 4 mg PO Q8H PRN nausea and 04/14/21 (Zofran) vomiting #14 tabs metoprolol succinate 50 mg 50 mg PO DAILY #14 tabs 05/22/21 tablet,extended release 24 hr ciprofloxacin 0.3 %-dexamethasone 4 drp otic (ears) BID 7 days 05/26/21 0.1 % ear drops,suspension (Ciprodex) polyethylene glycol 3350 17 17 g PO DAILY PRN constipation 07/31/21 gram/dose oral powder (Miralax) #238 grams hydrocortisone acetate 25 mg 25 mg KS BID #12 ea 08/01/21 rectal suppository (Anucort-HC) cefuroxime axetil 500 mg tablet 500 mg PO BID 7 days #14 tabs 09/01/21 meclizine 25 mg tablet 25 mg PO TID PRN dizziness #10 tabs 09/01/21 zolpidem 5 mg tablet (Ambien) 5 mg PO BEDTIME PRN sleep #2 tabs 10/29/21 zolpidem 5 mg tablet (Ambien) 5 mg PO BEDTIME PRN sleep #2 tabs 10/29/21 lisinopril 40 mg tablet 40 mg PO QPM #90 tabs 06/06/22 levofloxacin 500 mg tablet 500 mg PO DAILY 7 days #7 tabs 07/23/22 levofloxacin 500 mg tablet 500 mg PO DAILY #6 tabs 08/25/22 ofloxacin 0.3 % ear drops 10 drp otic (ears) DAILY 7 days #5 08/25/22 mL hydrocortisone 2.5 % topical cream 1 appl [place] BEDTIME PRN hemorrhoids 09/20/22 with perineal applicator #30 grams docusate sodium 100 mg capsule 100 mg PO BID PRN Constipation #14 12/06/22 (Colace) caps phenylephrine 0.25 %-mineral oil 1 appl KS BID PRN hemorrhoids #56 12/06/22 14 %-petrolatm 74.9 % rectal grams ointment (Hemorrhoidal(phenyleph-min oil-petrolat)) polyethylene glycol 3350 17 17 g PO BID #119 grams 12/06/22 gram/dose oral powder (Miralax) cefuroxime axetil 500 mg tablet 500 mg PO BID 10 days #20 tabs 12/16/22 alprazolam 0.25 mg tablet 0.25 mg PO QID #7 tabs 01/04/23 ofloxacin 0.3 % ear drops 5 drp otic (ear) left BID 7 days 01/06/23 #5 mL alprazolam 0.25 mg tablet 0.25 mg PO TID PRN anxiety #7 tabs 01/11/23 alprazolam 0.25 mg tablet 0.25 mg PO TID PRN anxiety #3 tabs 02/02/23 Allergies Allergy/AdvReac Type Severity Reaction Status Date / Time penicillin G [Penicillin G] Allergy Severe ITCHY/RASH Verified 01/04/23 04:25 Sulfa (Sulfonamide Allergy Severe ITCHY,RASH, Verified 01/04/23 04:25 Antibiotics) rash [Sulfa (Sulfonamides)] trimethoprim [From Bactrim] Allergy Severe HIVES Verified 01/04/23 04:25 penicillin V Allergy Unknown rash Verified 01/04/23 04:25 sulfacetamide Allergy Unknown unknown Verified 01/04/23 04:25 [From Sulfacet-R] sulfur [From Sulfacet-R] Allergy Unknown unknown Verified 01/04/23 04:25 [facility] Past Medical History Medical History Anxiety Arthritis Bleeding hemorrhoids Chronic constipation Dementia Essential hypertension High blood pressure PAC (premature atrial contraction) PVC (premature ventricular contraction) SVT (supraventricular tachycardia) Vertigo Surgical History No pertinent past surgical history Social History Social History Alcohol intake: never Patient Tobacco Use Status: Never used Tobacco Advance Directives: No Advance Directives Information Provided: Yes Physical Exam ED Vital Signs: Vital Signs - 24 hr 02/02/23 03:20 Temperature 99.0 F Pulse Rate 71 Respiratory Rate 16 Blood Pressure 157/78 H Pulse Oximetry 96 Oxygen Delivery Method Room Air BMI result Body Mass Index 27.1 GEN: Well developed, no acute distress, alert, oriented HEENT: Normocephalic, atraumatic, normal external ears, nose appears normal Eyes: Normal to appearance Neck: Supple, no lymphadenopathy Respiratory: Talks in complete sentences, no respiratory distress Extremities: No clubbing cyanosis or edema Neurologic: No focal neurologic deficits, cranial nerves 2-12 intact, gait nor mal Skin: No rash Course Course Course Narrative: Patient presents for alprazolam medication refill. I will provide the patient with 1 day's worth medication. I did discuss that alprazolam at her age is probably not the best medication if she is taking this multiple times a day. Advised her to discuss this with her primary care provider. Additionally, she is aware that she may not receive refills of this medication for chronic controlled substances. Medications Administered Discontinued Medications Generic Name Dose Route Start Last Admin Trade Name Freq PRN Reason Stop Dose Admin Alprazolam 0.25 mg 02/02/23 03:20 02/02/23 03:27 Alprazolam 0.25 Mg Tablet PO 02/02/23 03:21 0.25 mg ONCE ONE Administration Medical Decision Making Medical Decision Making [facility] Narrative: Patient presents for alprazolam medication refill. I will provide the patient with 1 day's worth medication. I did discuss that alprazolam at her age is probably not the best medication if she is taking this multiple times a day. Advised her to discuss this with her primary care provider. Additionally, she is aware that she may not receive refills of this medication for chronic controlled substances. Differential Diagnosis Differential Diagnoses: The differential diagnosis associated with the presentation includes (Anxiety depression, medication over usage) Discharge Plan Discharge Clinical Impression: Anxiety Patient Disposition: Home, Self-Care Instructions: Anxiety (ED) Prescriptions: New alprazolam 0.25 mg tablet 0.25 mg PO TID PRN (Reason: anxiety) Qty: 3 0RF No Action escitalopram oxalate 10 mg tablet 10 mg PO DAILY Qty: 30 1RF metoprolol succinate 50 mg tablet extended release 24 hr 50 mg PO DAILY Qty: 90 2RF aspirin 81 mg tablet,delayed release (DR/EC) 81 mg PO BEDTIME Qty: 90 2RF polyethylene glycol 3350 [Miralax] 17 gram/dose powder 17 g PO DAILY PRN (Reason: constipation) Qty: 238 0RF lisinopril 40 mg tablet 40 mg PO QPM Qty: 90 3RF acetaminophen 325 mg capsule 325 mg PO QID PRN (Reason: fever or pain) Qty: 30 0RF melatonin 10 mg tablet extended release 10 mg PO .nightly Qty: 5 0RF metoprolol succinate 50 mg tablet extended release 24 hr 50 mg PO DAILY Qty: 14 0RF ciprofloxacin-dexamethasone [Ciprodex] 0.3-0.1 % drops,suspension 4 drp otic (ears) BID 7 Days 0RF alprazolam 0.5 mg Tablet 0.5 mg PO TID PRN (Reason: Anxiety) hydroxyzine HCl 50 mg Tablet 50 mg PO TID PRN (Reason: Anxiety) mirtazapine 45 mg Tablet 45 mg PO BEDTIME multivitamin Capsule 1 cap PO DAILY sertraline 50 mg Tablet 50 mg PO BEDTIME aripiprazole 2 mg Tablet 2 mg PO BEDTIME cholecalciferol (vitamin D3) 25 mcg (1,000 unit) Tablet 25 mcg PO BID omeprazole 20 mg Tablet,Delayed Release (Dr/Ec) 20 mg PO DAILY linaclotide 145 mcg Capsule 145 mcg PO DAILY diphenhydramine HCl [Benadryl] 25 mg capsule 25 mg PO BEDTIME Qty: 7 0RF cefdinir 300 mg capsule 300 mg PO BID 10 Days Qty: 20 0RF ondansetron HCl [Zofran] 4 mg tablet 4 mg PO Q8H PRN (Reason: nausea and vomiting) Qty: 14 0RF cefuroxime axetil 500 mg tablet 500 mg PO BID 7 Days Qty: 14 0RF meclizine 25 mg tablet 25 mg PO TID PRN (Reason: dizziness) Qty: 10 0RF levofloxacin 500 mg tablet 500 mg PO DAILY 7 Days Qty: 7 0RF cefuroxime axetil 500 mg tablet 500 mg PO BID 10 Days Qty: 20 0RF alprazolam 0.25 mg tablet 0.25 mg PO QID Qty: 7 0RF levofloxacin 500 mg tablet 500 mg PO DAILY Qty: 6 0RF Rx Instructions: start on 08/26 ofloxacin 0.3 % drops 10 drp otic (ears) DAILY 7 Days Qty: 5 0RF Rx Instructions: can substitute eye drops if necessary hydrocortisone 2.5 % cream with perineal applicator 1 appl KS BEDTIME PRN (Reason: hemorrhoids) Qty: 30 0RF Hemorrhoidal(PE-min oil-emma) 0.25-14-74.9 % ointment 1 appl KS BID PRN (Reason: hemorrhoids) Qty: 56 0RF polyethylene glycol 3350 [Miralax] 17 gram/dose powder 17 g PO BID Qty: 119 0RF docusate sodium [Colace] 100 mg capsule 100 mg PO BID PRN (Reason: Constipation) Qty: 14 0RF ofloxacin 0.3 % drops 5 drp otic (ear) left BID 7 Days Qty: 5 0RF alprazolam 0.25 mg tablet 0.25 mg PO TID PRN (Reason: anxiety) Qty: 7 0RF Calmoseptine 0.44-20.6 % ointment 1 appl topical QID PRN (Reason: skin irritation) Qty: 113 0RF magnesium citrate Solution 150 ml PO DAILY PRN (Reason: constipation) Qty: 296 0RF Rx Instructions: take only when needed for constipation hydrocortisone acetate [Anucort-HC] 25 mg suppository 25 mg KS BID Qty: 12 3RF zolpidem [Ambien] 5 mg tablet 5 mg PO BEDTIME PRN (Reason: sleep) Qty: 2 0RF zolpidem [Ambien] 5 mg tablet 5 mg PO BEDTIME PRN (Reason: sleep) Qty: 2 0RF
[2023-02-02] MEDS: ALPRAZolam 0.25 MG TABLET PO (03:27)
[2023-02-02 03:31] VITALS: BP 157/78; PULSE 80; RESP 16; TEMP 36.7; O2SAT 96
== END 2023-02-02 04:18 | disposition home or self-care (01) ==
LOC: HO.ED 03:28
PROVIDERS: Emergency Provider Emergency Medicine
DX: F41.1 Generalized anxiety disorder (principal); I10 Essential (primary) hypertension; R51.9 Headache, unspecified; Z79.899 Other long term (current) drug therapy
CPT/HCPCS: 99284; 99285

== ENCOUNTER 2023-02-03 04:02 | Emergency (ER) | payer OTHER, SELFPAY ==
[2023-02-03 04:11] VITALS: BP 153/71; BP 163/83; PULSE 84; PULSE 86; RESP 16; TEMP 37.3; O2SAT 100; O2SAT 98; BMI 24.7
--- NOTE | 2023-02-03 05:18 | ED_ITS ---
HPI - Anxiety General Chief Complaint: Anxiety Stated Complaint: Anxiety Attack Time Seen by Provider: 02/03/23 05:08 History of Present Illness HPI narrative: Patient is a 77-year-old female presents today with having anxiety. Patient wants alprazolam. Has a history of anxiety. Been seen in the emergency department multiple times in the past. No chest pain or diaphoresis no fever no chills patient appears calm Related Data Home Medications Medication Instructions Recorded Confirmed alprazolam 0.5 mg tablet 0.5 mg PO TID PRN Anxiety 08/09/20 10/16/22 aripiprazole 2 mg tablet 2 mg PO BEDTIME 08/09/20 10/16/22 cholecalciferol (vitamin D3) 25 25 mcg PO BID 08/09/20 10/16/22 mcg (1,000 unit) tablet hydroxyzine HCl 50 mg tablet 50 mg PO TID PRN Anxiety 08/09/20 10/16/22 linaclotide 145 mcg capsule 145 mcg PO DAILY 08/09/20 10/16/22 mirtazapine 45 mg tablet 45 mg PO BEDTIME 08/09/20 10/16/22 multivitamin 1 cap PO DAILY 08/09/20 10/16/22 omeprazole 20 mg tablet,delayed 20 mg PO DAILY 08/09/20 10/16/22 release sertraline 50 mg tablet 50 mg PO BEDTIME 08/09/20 10/16/22 Previous Rx's Medication Instructions Recorded escitalopram oxalate 10 mg tablet 10 mg PO DAILY #30 tabs 09/06/20 acetaminophen 325 mg capsule 325 mg PO QID PRN fever or pain 09/16/20 #30 caps aspirin 81 mg tablet,delayed 81 mg PO BEDTIME #90 tabs 09/28/20 release metoprolol succinate 50 mg 50 mg PO DAILY #90 tabs 09/28/20 tablet,extended release 24 hr menthol 0.44 %-zinc oxide 20.6 % 1 appl topical QID PRN skin 12/13/20 topical ointment (Calmoseptine) irritation #113 grams magnesium citrate 150 ml PO DAILY PRN constipation 12/14/20 #296 mL diphenhydramine HCl 25 mg capsule 25 mg PO BEDTIME insomnia #7 caps 12/25/20 (Benadryl) melatonin 10 mg tablet,extended 10 mg PO .nightly #5 tabs 01/07/21 release cefdinir 300 mg capsule 300 mg PO BID Otitis media 10 days 04/14/21 #20 caps ondansetron HCl 4 mg tablet 4 mg PO Q8H PRN nausea and 04/14/21 (Zofran) vomiting #14 tabs metoprolol succinate 50 mg 50 mg PO DAILY #14 tabs 05/22/21 tablet,extended release 24 hr ciprofloxacin 0.3 %-dexamethasone 4 drp otic (ears) BID 7 days 05/26/21 0.1 % ear drops,suspension (Ciprodex) polyethylene glycol 3350 17 17 g PO DAILY PRN constipation 07/31/21 gram/dose oral powder (Miralax) #238 grams hydrocortisone acetate 25 mg 25 mg [place] BID #12 ea 08/01/21 rectal suppository (Anucort-HC) cefuroxime axetil 500 mg tablet 500 mg PO BID 7 days #14 tabs 09/01/21 meclizine 25 mg tablet 25 mg PO TID PRN dizziness #10 tabs 09/01/21 zolpidem 5 mg tablet (Ambien) 5 mg PO BEDTIME PRN sleep #2 tabs 10/29/21 zolpidem 5 mg tablet (Ambien) 5 mg PO BEDTIME PRN sleep #2 tabs 10/29/21 lisinopril 40 mg tablet 40 mg PO QPM #90 tabs 06/06/22 levofloxacin 500 mg tablet 500 mg PO DAILY 7 days #7 tabs 07/23/22 levofloxacin 500 mg tablet 500 mg PO DAILY #6 tabs 08/25/22 ofloxacin 0.3 % ear drops 10 drp otic (ears) DAILY 7 days #5 08/25/22 mL hydrocortisone 2.5 % topical cream 1 appl [place] BEDTIME PRN hemorrhoids 09/20/22 with perineal applicator #30 grams docusate sodium 100 mg capsule 100 mg PO BID PRN Constipation #14 12/06/22 (Colace) caps phenylephrine 0.25 %-mineral oil 1 appl [place] BID PRN hemorrhoids #56 12/06/22 14 %-petrolatm 74.9 % rectal grams ointment (Hemorrhoidal(phenyleph-min oil-petrolat)) polyethylene glycol 3350 17 17 g PO BID #119 grams 12/06/22 gram/dose oral powder (Miralax) cefuroxime axetil 500 mg tablet 500 mg PO BID 10 days #20 tabs 12/16/22 alprazolam 0.25 mg tablet 0.25 mg PO QID #7 tabs 01/04/23 ofloxacin 0.3 % ear drops 5 drp otic (ear) left BID 7 days 01/06/23 #5 mL alprazolam 0.25 mg tablet 0.25 mg PO TID PRN anxiety #7 tabs 01/11/23 alprazolam 0.25 mg tablet 0.25 mg PO TID PRN anxiety #3 tabs 02/02/23 Allergies Allergy/AdvReac Type Severity Reaction Status Date / Time penicillin G [Penicillin G] Allergy Severe ITCHY/RASH Verified 01/04/23 04:25 Sulfa (Sulfonamide Allergy Severe ITCHY,RASH, Verified 01/04/23 04:25 Antibiotics) rash [Sulfa (Sulfonamides)] trimethoprim [From Bactrim] Allergy Severe HIVES Verified 01/04/23 04:25 penicillin V Allergy Unknown rash Verified 01/04/23 04:25 sulfacetamide Allergy Unknown unknown Verified 01/04/23 04:25 [From Sulfacet-R] sulfur [From Sulfacet-R] Allergy Unknown unknown Verified 01/04/23 04:25 Review of Systems Review of Systems: No fever no chills no diaphoresis Yes all other systems are reviewed and are negative [facility] Past Medical History Attestation statement: The following information was validated with the patient. Medical History Anxiety Arthritis Bleeding hemorrhoids Chronic constipation Dementia Essential hypertension High blood pressure PAC (premature atrial contraction) PVC (premature ventricular contraction) SVT (supraventricular tachycardia) Vertigo Surgical History No pertinent past surgical history Social History Social History Alcohol intake: never Patient Tobacco Use Status: Never used Tobacco Advance Directives: No Physical Exam Vital Signs: Vital Signs: Last Vital Signs Temp 99.1 F 02/03/23 04:11 Pulse 86 02/03/23 04:11 Resp 16 02/03/23 04:11 BP 153/71 H 02/03/23 04:11 Pulse Ox 98 02/03/23 04:11 O2 Del Method Room Air 02/03/23 04:11 BMI result Body Mass Index 24.7 Appearance: Alert. Oriented X3. No acute distress. Eyes: Pupils equal, round and reactive to light. ENT: Pharynx normal. Neck: Normal inspection. Neck supple. No lymph nodes noted. No crepitus CVS: Normal heart rate and rhythm. Pulses normal. Normal S1 and S2 Respiratory: No respiratory distress. Breath sounds normal. No Wheezing. No rales Abdomen: Soft and nontender. No rigidity. No distention. good BS x4 Skin: Skin warm and dry. Normal skin color. Normal skin turgor. Extremities: No lower extremity edema. Neurovascular intact to all extremities. No Lacerations. No Rash Neuro: Oriented X 3. No motor deficit. No sensory deficit. Moving all extermities. No slurred speech Medical Decision Making Medical Decision Making MDM Narrative: Patient positive history of anxiety. Wants alprazolam. Explained we can not do an EKG and monitor her. But did not want to give her the medication right away. Patient stormed out of the emergency department did not want further care. Differential Diagnosis Differential Diagnoses: The differential diagnosis associated with the presentation includes Anxiety SVT External Record Review External record reviewed: Inpatient record and Outpatient record Prior ED record Chronic Conditions Supraventricular tachycardia Discharge Plan Discharge Clinical Impression: Generalized anxiety disorder with panic attacks Patient Disposition: Elopement Prescriptions: No Action escitalopram oxalate 10 mg tablet 10 mg PO DAILY Qty: 30 1RF metoprolol succinate 50 mg tablet extended release 24 hr 50 mg PO DAILY Qty: 90 2RF aspirin 81 mg tablet,delayed release (DR/EC) 81 mg PO BEDTIME Qty: 90 2RF polyethylene glycol 3350 [Miralax] 17 gram/dose powder 17 g PO DAILY PRN (Reason: constipation) Qty: 238 0RF lisinopril 40 mg tablet 40 mg PO QPM Qty: 90 3RF acetaminophen 325 mg capsule 325 mg PO QID PRN (Reason: fever or pain) Qty: 30 0RF melatonin 10 mg tablet extended release 10 mg PO .nightly Qty: 5 0RF metoprolol succinate 50 mg tablet extended release 24 hr 50 mg PO DAILY Qty: 14 0RF ciprofloxacin-dexamethasone [Ciprodex] 0.3-0.1 % drops,suspension 4 drp otic (ears) BID 7 Days 0RF alprazolam 0.5 mg Tablet 0.5 mg PO TID PRN (Reason: Anxiety) hydroxyzine HCl 50 mg Tablet 50 mg PO TID PRN (Reason: Anxiety) mirtazapine 45 mg Tablet 45 mg PO BEDTIME multivitamin Capsule 1 cap PO DAILY sertraline 50 mg Tablet 50 mg PO BEDTIME aripiprazole 2 mg Tablet 2 mg PO BEDTIME cholecalciferol (vitamin D3) 25 mcg (1,000 unit) Tablet 25 mcg PO BID omeprazole 20 mg Tablet,Delayed Release (Dr/Ec) 20 mg PO DAILY linaclotide 145 mcg Capsule 145 mcg PO DAILY diphenhydramine HCl [Benadryl] 25 mg capsule 25 mg PO BEDTIME Qty: 7 0RF cefdinir 300 mg capsule 300 mg PO BID 10 Days Qty: 20 0RF ondansetron HCl [Zofran] 4 mg tablet 4 mg PO Q8H PRN (Reason: nausea and vomiting) Qty: 14 0RF cefuroxime axetil 500 mg tablet 500 mg PO BID 7 Days Qty: 14 0RF meclizine 25 mg tablet 25 mg PO TID PRN (Reason: dizziness) Qty: 10 0RF levofloxacin 500 mg tablet 500 mg PO DAILY 7 Days Qty: 7 0RF cefuroxime axetil 500 mg tablet 500 mg PO BID 10 Days Qty: 20 0RF alprazolam 0.25 mg tablet 0.25 mg PO QID Qty: 7 0RF levofloxacin 500 mg tablet 500 mg PO DAILY Qty: 6 0RF Rx Instructions: start on 08/26 ofloxacin 0.3 % drops 10 drp otic (ears) DAILY 7 Days Qty: 5 0RF Rx Instructions: can substitute eye drops if necessary hydrocortisone 2.5 % cream with perineal applicator 1 appl NC BEDTIME PRN (Reason: hemorrhoids) Qty: 30 0RF Hemorrhoidal(PE-min oil-emma) 0.25-14-74.9 % ointment 1 appl NC BID PRN (Reason: hemorrhoids) Qty: 56 0RF polyethylene glycol 3350 [Miralax] 17 gram/dose powder 17 g PO BID Qty: 119 0RF docusate sodium [Colace] 100 mg capsule 100 mg PO BID PRN (Reason: Constipation) Qty: 14 0RF ofloxacin 0.3 % drops 5 drp otic (ear) left BID 7 Days Qty: 5 0RF alprazolam 0.25 mg tablet 0.25 mg PO TID PRN (Reason: anxiety) Qty: 7 0RF alprazolam 0.25 mg tablet 0.25 mg PO TID PRN (Reason: anxiety) Qty: 3 0RF Calmoseptine 0.44-20.6 % ointment 1 appl topical QID PRN (Reason: skin irritation) Qty: 113 0RF magnesium citrate Solution 150 ml PO DAILY PRN (Reason: constipation) Qty: 296 0RF Rx Instructions: take only when needed for constipation hydrocortisone acetate [Anucort-HC] 25 mg suppository 25 mg NC BID Qty: 12 3RF zolpidem [Ambien] 5 mg tablet 5 mg PO BEDTIME PRN (Reason: sleep) Qty: 2 0RF zolpidem [Ambien] 5 mg tablet 5 mg PO BEDTIME PRN (Reason: sleep) Qty: 2 0RF
== END 2023-02-03 05:28 | disposition left against medical advice (07) ==
PROVIDERS: Emergency Provider Emergency Medicine Emergency Medical Services; PCP Internal Medicine Geriatric Medicine
DX: F41.1 Generalized anxiety disorder (principal); F43.0 Acute stress reaction; Z79.899 Other long term (current) drug therapy
CPT/HCPCS: 99282

== ENCOUNTER → 2023-02-06 13:19 | Outpatient (BNVA) | payer OTHER, SELFPAY | PROVIDERS: PCP Internal Medicine Geriatric Medicine; Referring Provider Internal Medicine Geriatric Medicine; Visit Provider Surgery | DX: K64.9 Unspecified hemorrhoids (principal) | CPT/HCPCS: 99212 ==

== ENCOUNTER 2023-02-24 18:56 | Emergency (ER) | payer OTHER, SELFPAY | END 2023-02-24 19:20 | disposition left against medical advice (07) | LOC: HO.ED 20:20 | PROVIDERS: Emergency Provider Emergency Medicine | DX: I10 Essential (primary) hypertension (principal) ==

== ENCOUNTER 2023-02-24 21:50 | Emergency (ER) | payer OTHER, SELFPAY ==
[2023-02-24 22:04] VITALS: BP 173/92; PULSE 80; RESP 18; TEMP 37.2; O2SAT 97; BMI 24.7
[2023-02-24 22:36] VITALS: BP 158/78
--- NOTE | 2023-02-24 22:37 | PC.NURSE ---
pt requested to have B/P rechecked, pt b/p now 158/78, down from 173/92 upon arrival, call ann within reach
--- NOTE | 2023-02-24 22:44 | ECG_ITS ---
Test Reason : DIZZINESS Blood Pressure : / mmHG Vent. Rate : 076 BPM Atrial Rate : 076 BPM P-R Int : 178 ms QRS Dur : 110 ms QT Int : 388 ms P-R-T Axes : 043 -31 015 degrees QTc Int : 436 ms Normal sinus rhythm Left axis deviation Moderate voltage criteria for LVH, may be normal variant ( R in aVL , Maycol product ) Abnormal ECG When compared with ECG of 25-NOV-2022 08:49, No significant change was found Referred By: Marta Bricsoe Electronically Signed By:ZANDRA ENNIS
[2023-02-24] MEDS: Ondansetron ODT 4 MG TAB.RAPDIS TRANSLINGU (22:53)
[2023-02-24] MEDS: ALPRAZolam 0.5 MG TABLET PO (22:53)
--- NOTE | 2023-02-24 22:54 | ED_ITS ---
HPI - General Adult General Chief complaint: General Medical Stated complaint: vomiting Time Seen by Provider: 02/24/23 22:36 Source: patient Mode of arrival: ambulatory Limitations: no limitations History of Present Illness HPI narrative: Patient comes to the emergency room complaining of anxiety. Patient states that she ran out of alprazolam, which makes her very anxious and her blood pressure rises. Patient denies chest pain. Patient came in complaining of dizziness. When I asked to the patient with dizziness meds, patient stated that she was anxious, denies room spinning, denies lightheadedness. Patient states that she is due to get her prescription tomorrow. Due to the holidays, she was unable to picker feeder her medications. Patient denies suicidal homicidal ideation Related Data Home Medications Medication Instructions Recorded Confirmed alprazolam 0.5 mg tablet 0.5 mg PO TID PRN Anxiety 08/09/20 02/06/23 aripiprazole 2 mg tablet 2 mg PO BEDTIME 08/09/20 02/06/23 cholecalciferol (vitamin D3) 25 25 mcg PO BID 08/09/20 02/06/23 mcg (1,000 unit) tablet hydroxyzine HCl 50 mg tablet 50 mg PO TID PRN Anxiety 08/09/20 02/06/23 linaclotide 145 mcg capsule 145 mcg PO DAILY 08/09/20 02/06/23 mirtazapine 45 mg tablet 45 mg PO BEDTIME 08/09/20 02/06/23 multivitamin 1 cap PO DAILY 08/09/20 02/06/23 omeprazole 20 mg tablet,delayed 20 mg PO DAILY 08/09/20 02/06/23 release sertraline 50 mg tablet 50 mg PO BEDTIME 08/09/20 02/06/23 Previous Rx's Medication Instructions Recorded escitalopram oxalate 10 mg tablet 10 mg PO DAILY #30 tabs 09/06/20 acetaminophen 325 mg capsule 325 mg PO QID PRN fever or pain 09/16/20 #30 caps aspirin 81 mg tablet,delayed 81 mg PO BEDTIME #90 tabs 09/28/20 release metoprolol succinate 50 mg 50 mg PO DAILY #90 tabs 09/28/20 tablet,extended release 24 hr menthol 0.44 %-zinc oxide 20.6 % 1 appl topical QID PRN skin 12/13/20 topical ointment (Calmoseptine) irritation #113 grams magnesium citrate 150 ml PO DAILY PRN constipation 12/14/20 #296 mL diphenhydramine HCl 25 mg capsule 25 mg PO BEDTIME insomnia #7 caps 12/25/20 (Benadryl) melatonin 10 mg tablet,extended 10 mg PO .nightly #5 tabs 01/07/21 release cefdinir 300 mg capsule 300 mg PO BID Otitis media 10 days 04/14/21 #20 caps ondansetron HCl 4 mg tablet 4 mg PO Q8H PRN nausea and 04/14/21 (Zofran) vomiting #14 tabs metoprolol succinate 50 mg 50 mg PO DAILY #14 tabs 05/22/21 tablet,extended release 24 hr ciprofloxacin 0.3 %-dexamethasone 4 drp otic (ears) BID 7 days 05/26/21 0.1 % ear drops,suspension (Ciprodex) polyethylene glycol 3350 17 17 g PO DAILY PRN constipation 07/31/21 gram/dose oral powder (Miralax) #238 grams hydrocortisone acetate 25 mg 25 mg CO BID #12 ea 08/01/21 rectal suppository (Anucort-HC) cefuroxime axetil 500 mg tablet 500 mg PO BID 7 days #14 tabs 09/01/21 meclizine 25 mg tablet 25 mg PO TID PRN dizziness #10 tabs 09/01/21 zolpidem 5 mg tablet (Ambien) 5 mg PO BEDTIME PRN sleep #2 tabs 10/29/21 zolpidem 5 mg tablet (Ambien) 5 mg PO BEDTIME PRN sleep #2 tabs 10/29/21 lisinopril 40 mg tablet 40 mg PO QPM #90 tabs 06/06/22 levofloxacin 500 mg tablet 500 mg PO DAILY 7 days #7 tabs 07/23/22 levofloxacin 500 mg tablet 500 mg PO DAILY #6 tabs 08/25/22 ofloxacin 0.3 % ear drops 10 drp otic (ears) DAILY 7 days #5 08/25/22 mL hydrocortisone 2.5 % topical cream 1 appl CO BEDTIME PRN hemorrhoids 09/20/22 with perineal applicator #30 grams docusate sodium 100 mg capsule 100 mg PO BID PRN Constipation #14 12/06/22 (Colace) caps phenylephrine 0.25 %-mineral oil 1 appl CO BID PRN hemorrhoids #56 12/06/22 14 %-petrolatm 74.9 % rectal grams ointment (Hemorrhoidal(phenyleph-min oil-petrolat)) polyethylene glycol 3350 17 17 g PO BID #119 grams 12/06/22 gram/dose oral powder (Miralax) cefuroxime axetil 500 mg tablet 500 mg PO BID 10 days #20 tabs 12/16/22 alprazolam 0.25 mg tablet 0.25 mg PO QID #7 tabs 01/04/23 ofloxacin 0.3 % ear drops 5 drp otic (ear) left BID 7 days 01/06/23 #5 mL alprazolam 0.25 mg tablet 0.25 mg PO TID PRN anxiety #7 tabs 01/11/23 alprazolam 0.25 mg tablet 0.25 mg PO TID PRN anxiety #3 tabs 02/02/23 Allergies Allergy/AdvReac Type Severity Reaction Status Date / Time penicillin G [Penicillin G] Allergy Severe ITCHY/RASH Verified 02/24/23 22:10 Sulfa (Sulfonamide Allergy Severe ITCHY,RASH, Verified 02/24/23 22:10 Antibiotics) rash [Sulfa (Sulfonamides)] trimethoprim [From Bactrim] Allergy Severe HIVES Verified 02/24/23 22:10 penicillin V Allergy Unknown rash Verified 02/24/23 22:10 sulfacetamide Allergy Unknown unknown Verified 02/24/23 22:10 [From Sulfacet-R] sulfur [From Sulfacet-R] Allergy Unknown unknown Verified 02/24/23 22:10 Review of Systems Review of Systems: Constitutional : No Weight loss, No Fever, No Chills, No Night Sweats, No Fatigue, No Malaise ENT/Mouth : No Hearing loss, No Ear Pain, No Nasal Congestion, No Sinus Pain, No Hoarseness, No sore throat, No Rhinorrhea, No Swallowing Difficulty Eyes: No Eye Pain, No Swelling, No Redness, No Foreign Body, No Discharge, No Vision Changes Cardiovascular : No Chest Pain, No SOB, No Dyspnea on Exertion, No Orthopnea, No Edema, No Palpitations Respiratory : No Cough, No Sputum, No Wheezing, No Smoke Exposure, No Dyspnea Gastrointestinal : No Nausea, No Vomiting, No Diarrhea, No Constipation, No abdominal Pain, No Hematochezia, No Melena Genitourinary : no irregular bleeding, No Dysuria, No Urinary Frequency, No Hematuria, No Urinary Incontinence, No Urgency, No Flank Pain, No Urinary Flow Changes, No Hesitancy Musculoskeletal : No joint pain, No Myalgias, No Joint Swelling Skin : No Skin Lesions, No rash Neuro : No Weakness, No Numbness, No Paresthesias, No Loss of Consciousness, No Dizziness, No Headache Psych : Complaining of anxiety, no depression, no SI or HI Heme/Lymph: No Bruising, No Bleeding,No Lymphadenopathy Endocrine : No Polyuria, No Polydipsia, No Temperature Intolerance [facility] Past Medical History Medical History Anxiety Arthritis Bleeding hemorrhoids Chronic constipation Dementia Essential hypertension High blood pressure PAC (premature atrial contraction) PVC (premature ventricular contraction) SVT (supraventricular tachycardia) Vertigo Surgical History No pertinent past surgical history Social History Social History Alcohol intake: never Patient Tobacco Use Status: Never used Tobacco Advance Directives: No Advance Directives Information Provided: No Physical Exam ED Vital Signs: Vital Signs - 24 hr 02/24/23 22:04 02/24/23 22:36 Temperature 98.9 F Pulse Rate 80 Respiratory Rate 18 Blood Pressure 173/92 H 158/78 H Pulse Oximetry 97 Oxygen Delivery Method Room Air BMI result Body Mass Index 24.7 Const Other: Appearance: Alert. Oriented X3. No acute distress. Eyes: Pupils equal, round and reactive to light. ENT: Pharynx normal. Neck: Normal inspection. Neck supple. No lymph nodes noted. No crepitus CVS: Normal heart rate and rhythm. Pulses normal. Normal S1 and S2 Respiratory: No respiratory distress. Breath sounds normal. No Wheezing. No rales Abdomen: Soft and nontender. No rigidity. No distention. Skin: Skin warm and dry. Normal skin color. Normal skin turgor. Extremities: No lower extremity edema. No Lacerations. No Rash Neuro: Oriented X 3. No motor deficit. No sensory deficit. Moving all extremities. No slurred speech. CN 2 through 12 grossly intact Psych: calm, cooperative, normal affect Medications Administered Discontinued Medications Generic Name Dose Route Start Last Admin Trade Name Freq PRN Reason Stop Dose Admin Alprazolam 0.5 mg 02/24/23 22:44 02/24/23 22:53 Alprazolam 0.5 Mg Tablet PO 02/24/23 22:45 0.5 mg ONCE ONE Administration Ondansetron HCl 4 mg 02/24/23 22:44 02/24/23 22:53 Ondansetron Odt 4 Mg Tab.Bellodis CLAUDETTEINGU 02/24/23 22:45 4 mg ONCE ONE Administration Medical Decision Making Medical Decision Making MDM Narrative: -patient's EKG my interpretation: Sinus rhythm, heart rate 76, no ST segment depression or elevation, nonspecific T-wave inversion in lead 3, QTC 436 -patient was given 1 dose of alprazolam and p.o. Zofran in the emergency room. Feeling better. Patient can refill her medications tomorrow. Discharge Plan Discharge Clinical Impression: Anxiety Patient Disposition: Home, Self-Care Instructions: Anxiety (ED) Additional Instructions: Please follow-up with your primary care physician tomorrow. If you have any worsening or new symptoms, please return to the emergency room or call 911 Prescriptions: No Action escitalopram oxalate 10 mg tablet 10 mg PO DAILY Qty: 30 1RF metoprolol succinate 50 mg tablet extended release 24 hr 50 mg PO DAILY Qty: 90 2RF aspirin 81 mg tablet,delayed release (DR/EC) 81 mg PO BEDTIME Qty: 90 2RF polyethylene glycol 3350 [Miralax] 17 gram/dose powder 17 g PO DAILY PRN (Reason: constipation) Qty: 238 0RF lisinopril 40 mg tablet 40 mg PO QPM Qty: 90 3RF acetaminophen 325 mg capsule 325 mg PO QID PRN (Reason: fever or pain) Qty: 30 0RF melatonin 10 mg tablet extended release 10 mg PO .nightly Qty: 5 0RF metoprolol succinate 50 mg tablet extended release 24 hr 50 mg PO DAILY Qty: 14 0RF ciprofloxacin-dexamethasone [Ciprodex] 0.3-0.1 % drops,suspension 4 drp otic (ears) BID 7 Days 0RF alprazolam 0.5 mg Tablet 0.5 mg PO TID PRN (Reason: Anxiety) hydroxyzine HCl 50 mg Tablet 50 mg PO TID PRN (Reason: Anxiety) mirtazapine 45 mg Tablet 45 mg PO BEDTIME multivitamin Capsule 1 cap PO DAILY sertraline 50 mg Tablet 50 mg PO BEDTIME aripiprazole 2 mg Tablet 2 mg PO BEDTIME cholecalciferol (vitamin D3) 25 mcg (1,000 unit) Tablet 25 mcg PO BID omeprazole 20 mg Tablet,Delayed Release (Dr/Ec) 20 mg PO DAILY linaclotide 145 mcg Capsule 145 mcg PO DAILY diphenhydramine HCl [Benadryl] 25 mg capsule 25 mg PO BEDTIME Qty: 7 0RF cefdinir 300 mg capsule 300 mg PO BID 10 Days Qty: 20 0RF ondansetron HCl [Zofran] 4 mg tablet 4 mg PO Q8H PRN (Reason: nausea and vomiting) Qty: 14 0RF cefuroxime axetil 500 mg tablet 500 mg PO BID 7 Days Qty: 14 0RF meclizine 25 mg tablet 25 mg PO TID PRN (Reason: dizziness) Qty: 10 0RF levofloxacin 500 mg tablet 500 mg PO DAILY 7 Days Qty: 7 0RF cefuroxime axetil 500 mg tablet 500 mg PO BID 10 Days Qty: 20 0RF alprazolam 0.25 mg tablet 0.25 mg PO QID Qty: 7 0RF levofloxacin 500 mg tablet 500 mg PO DAILY Qty: 6 0RF Rx Instructions: start on 08/26 ofloxacin 0.3 % drops 10 drp otic (ears) DAILY 7 Days Qty: 5 0RF Rx Instructions: can substitute eye drops if necessary hydrocortisone 2.5 % cream with perineal applicator 1 appl CO BEDTIME PRN (Reason: hemorrhoids) Qty: 30 0RF Hemorrhoidal(PE-min oil-emma) 0.25-14-74.9 % ointment 1 appl CO BID PRN (Reason: hemorrhoids) Qty: 56 0RF polyethylene glycol 3350 [Miralax] 17 gram/dose powder 17 g PO BID Qty: 119 0RF docusate sodium [Colace] 100 mg capsule 100 mg PO BID PRN (Reason: Constipation) Qty: 14 0RF ofloxacin 0.3 % drops 5 drp otic (ear) left BID 7 Days Qty: 5 0RF alprazolam 0.25 mg tablet 0.25 mg PO TID PRN (Reason: anxiety) Qty: 7 0RF alprazolam 0.25 mg tablet 0.25 mg PO TID PRN (Reason: anxiety) Qty: 3 0RF Calmoseptine 0.44-20.6 % ointment 1 appl topical QID PRN (Reason: skin irritation) Qty: 113 0RF magnesium citrate Solution 150 ml PO DAILY PRN (Reason: constipation) Qty: 296 0RF Rx Instructions: take only when needed for constipation hydrocortisone acetate [Anucort-HC] 25 mg suppository 25 mg CO BID Qty: 12 3RF zolpidem [Ambien] 5 mg tablet 5 mg PO BEDTIME PRN (Reason: sleep) Qty: 2 0RF zolpidem [Ambien] 5 mg tablet 5 mg PO BEDTIME PRN (Reason: sleep) Qty: 2 0RF
--- NOTE | 2023-02-24 22:55 | PC.NURSE ---
pt medicated per MAR- per pt request, curtain left partially open
--- NOTE | 2023-02-24 23:49 | PC.NURSE ---
pt assess and discharge by provider, the RN reviewed discharge instruction, pt verbalized understanding, no sign of distress.
== END 2023-02-24 23:51 | disposition home or self-care (01) ==
PROVIDERS: Emergency Provider Emergency Medicine; PCP Internal Medicine Geriatric Medicine
DX: F41.9 Anxiety disorder, unspecified (principal); I10 Essential (primary) hypertension; Z79.899 Other long term (current) drug therapy
CPT/HCPCS: 93005; 99283; 99284

== ENCOUNTER 2023-03-04 05:39 | Emergency (ER) | payer OTHER, SELFPAY ==
[2023-03-04 05:48] VITALS: BP 200/82; PULSE 102; O2SAT 100; BMI 24.3
[2023-03-04 05:49] VITALS: BP 178/86; PULSE 81; RESP 17; TEMP 37.3; O2SAT 99
--- NOTE | 2023-03-04 05:51 | PC.NURSE ---
Pt presenting to ER with increased anxiety and hypertension. Pt reported she ran out of her anxiety medication at home. Pt has been seen here for similar episodes in the past.
--- NOTE | 2023-03-04 05:59 | ED.ANXIETY ---
HPI - Anxiety General Chief Complaint: Anxiety Stated Complaint: HTN ANXIETY Time Seen by Provider: 03/04/23 06:05 Source: patient Mode of arrival: EMS Limitations: language barrier History of Present Illness HPI narrative: patient presents with anxiety she has not her medications. This is a typical story for this patient known well to us MD complaint: anxiety and heart racing Related Data Home Medications Medication Instructions Recorded Confirmed alprazolam 0.5 mg tablet 0.5 mg PO TID PRN Anxiety 08/09/20 02/06/23 aripiprazole 2 mg tablet 2 mg PO BEDTIME 08/09/20 02/06/23 cholecalciferol (vitamin D3) 25 25 mcg PO BID 08/09/20 02/06/23 mcg (1,000 unit) tablet hydroxyzine HCl 50 mg tablet 50 mg PO TID PRN Anxiety 08/09/20 02/06/23 linaclotide 145 mcg capsule 145 mcg PO DAILY 08/09/20 02/06/23 mirtazapine 45 mg tablet 45 mg PO BEDTIME 08/09/20 02/06/23 multivitamin 1 cap PO DAILY 08/09/20 02/06/23 omeprazole 20 mg tablet,delayed 20 mg PO DAILY 08/09/20 02/06/23 release sertraline 50 mg tablet 50 mg PO BEDTIME 08/09/20 02/06/23 Previous Rx's Medication Instructions Recorded escitalopram oxalate 10 mg tablet 10 mg PO DAILY #30 tabs 09/06/20 acetaminophen 325 mg capsule 325 mg PO QID PRN fever or pain 09/16/20 #30 caps aspirin 81 mg tablet,delayed 81 mg PO BEDTIME #90 tabs 09/28/20 release metoprolol succinate 50 mg 50 mg PO DAILY #90 tabs 09/28/20 tablet,extended release 24 hr menthol 0.44 %-zinc oxide 20.6 % 1 appl topical QID PRN skin 12/13/20 topical ointment (Calmoseptine) irritation #113 grams magnesium citrate 150 ml PO DAILY PRN constipation 12/14/20 #296 mL diphenhydramine HCl 25 mg capsule 25 mg PO BEDTIME insomnia #7 caps 12/25/20 (Benadryl) melatonin 10 mg tablet,extended 10 mg PO .nightly #5 tabs 01/07/21 release cefdinir 300 mg capsule 300 mg PO BID Otitis media 10 days 04/14/21 #20 caps ondansetron HCl 4 mg tablet 4 mg PO Q8H PRN nausea and 04/14/21 (Zofran) vomiting #14 tabs metoprolol succinate 50 mg 50 mg PO DAILY #14 tabs 05/22/21 tablet,extended release 24 hr ciprofloxacin 0.3 %-dexamethasone 4 drp otic (ears) BID 7 days 05/26/21 0.1 % ear drops,suspension (Ciprodex) polyethylene glycol 3350 17 17 g PO DAILY PRN constipation 07/31/21 gram/dose oral powder (Miralax) #238 grams hydrocortisone acetate 25 mg 25 mg MD BID #12 ea 08/01/21 rectal suppository (Anucort-HC) cefuroxime axetil 500 mg tablet 500 mg PO BID 7 days #14 tabs 09/01/21 meclizine 25 mg tablet 25 mg PO TID PRN dizziness #10 tabs 09/01/21 zolpidem 5 mg tablet (Ambien) 5 mg PO BEDTIME PRN sleep #2 tabs 10/29/21 zolpidem 5 mg tablet (Ambien) 5 mg PO BEDTIME PRN sleep #2 tabs 10/29/21 lisinopril 40 mg tablet 40 mg PO QPM #90 tabs 06/06/22 levofloxacin 500 mg tablet 500 mg PO DAILY 7 days #7 tabs 07/23/22 levofloxacin 500 mg tablet 500 mg PO DAILY #6 tabs 08/25/22 ofloxacin 0.3 % ear drops 10 drp otic (ears) DAILY 7 days #5 08/25/22 mL hydrocortisone 2.5 % topical cream 1 appl MD BEDTIME PRN hemorrhoids 09/20/22 with perineal applicator #30 grams docusate sodium 100 mg capsule 100 mg PO BID PRN Constipation #14 12/06/22 (Colace) caps phenylephrine 0.25 %-mineral oil 1 appl MD BID PRN hemorrhoids #56 12/06/22 14 %-petrolatm 74.9 % rectal grams ointment (Hemorrhoidal(phenyleph-min oil-petrolat)) polyethylene glycol 3350 17 17 g PO BID #119 grams 12/06/22 gram/dose oral powder (Miralax) cefuroxime axetil 500 mg tablet 500 mg PO BID 10 days #20 tabs 02/06/23 alprazolam 0.25 mg tablet 0.25 mg PO QID #7 tabs 01/04/23 ofloxacin 0.3 % ear drops 5 drp otic (ear) left BID 7 days 01/06/23 #5 mL alprazolam 0.25 mg tablet 0.25 mg PO TID PRN anxiety #7 tabs 01/11/23 alprazolam 0.25 mg tablet 0.25 mg PO TID PRN anxiety #3 tabs 02/02/23 Allergies Allergy/AdvReac Type Severity Reaction Status Date / Time penicillin G [Penicillin G] Allergy Severe ITCHY/RASH Verified 02/24/23 22:10 Sulfa (Sulfonamide Allergy Severe ITCHY,RASH, Verified 02/24/23 22:10 Antibiotics) rash [Sulfa (Sulfonamides)] trimethoprim [From Bactrim] Allergy Severe HIVES Verified 02/24/23 22:10 penicillin V Allergy Unknown rash Verified 02/24/23 22:10 sulfacetamide Allergy Unknown unknown Verified 02/24/23 22:10 [From Sulfacet-R] sulfur [From Sulfacet-R] Allergy Unknown unknown Verified 02/24/23 22:10 Review of Systems Review of Systems: Yes all other systems are reviewed and are negative Neurologic: Denies Sensory deficit (Neuro) Psychiatric: Comments: anxiety PMFSH Past Medical History Medical History Anxiety Arthritis Bleeding hemorrhoids Chronic constipation Dementia Essential hypertension High blood pressure PAC (premature atrial contraction) PVC (premature ventricular contraction) SVT (supraventricular tachycardia) Vertigo Surgical History No pertinent past surgical history Social History Social History Alcohol intake: never Patient Tobacco Use Status: Never used Tobacco Smoked in Last 30 Days: No Use of substances other than those prescribed or required for medical reasons: No Advance Directives: No Advance Directives Information Provided: Yes Physical Exam Vital Signs: Vital Signs: Last Vital Signs Temp 99.1 F 03/04/23 05:49 Pulse 81 03/04/23 05:49 Resp 17 03/04/23 05:49 BP 178/86 H 03/04/23 05:49 Pulse Ox 99 03/04/23 05:49 O2 Del Method Room Air 03/04/23 05:49 BMI result Body Mass Index 24.3 Const: Other: very anxious Nutritional Appearance: thin Orientation/consciousness: oriented to person and patient oriented x3 Limitations: no limitations HEENT: Head: Yes normal to inspection Ears: external ears normal General nose exam: Normal external nose present Mouth: Normal oral and palatal mucosa present and oropharynx normal Throat: Yes posterior oropharynx normal Eyes: General: appearance normal, both eyes and all related structures Neck: Other: supple Neck: Yes normal visual inspection Chest: Chest palpation & inspection: normal inspection of the chest Resp: Auscultation: clear to auscultation bilaterally Cardio: Jugular venous distension: no JVD Rate: regular rate Rhythm: regular rhythm Heart sounds: S1 normal heart sound present and S2 normal heart sound present GI: Inspection: Yes normal to inspection Palpation (GI): Soft to palpation, nontender and No hepatosplenomegaly present Auscultation: normal bowel sounds : General: Yes no CVA tenderness Back/Spine/Pelvis: Back: no CVA tenderness Skin: General skin exam: no rashes or lesions noted Neuro: General: oriented to person and patient oriented x3 Cranial nerves: Yes CN's II-XII intact bilaterally Motor exam (neuro): 5/5 motor strength present throughout Sensory Exam: No Sensory deficit (Neuro) Extrem: General: Yes normal to inspection Psych: Other: anxious Course Reevaluation(s) Reevaluation #1: This patient presents very anxious because there is a gap in her xanax script. This is typical visit for this patient Time: 07:02 Medications Administered Discontinued Medications Generic Name Dose Route Start Last Admin Trade Name Beau PRN Reason Stop Dose Admin Lorazepam 2 mg 03/04/23 06:01 03/04/23 06:06 Lorazepam 1 Mg Tablet PO 03/04/23 06:02 2 mg ONCE ONE Administration Ondansetron HCl 4 mg 03/04/23 06:38 03/04/23 06:46 Ondansetron Odt 4 Mg Tab.Rapdis TRANSLINGU 03/04/23 06:39 4 mg ONCE ONE Administration Medical Decision Making Differential Diagnosis Differential Diagnoses: The differential diagnosis associated with the presentation includes (anxiety, benzo withdrawal, benzo dependency) External Record Review External record reviewed: Outpatient record Chronic Conditions Patient?s care impacted by: Other (benzo dependence) Social Determinants Patient?s care significantly limited by Social Determinants of Health including: Alcoholism and drug addiction in family Discharge Plan Discharge Clinical Impression: Generalized anxiety disorder with panic attacks Patient Disposition: Home, Self-Care Instructions: Anxiety (ED), Panic Attack (ED) Prescriptions: No Action escitalopram oxalate 10 mg tablet 10 mg PO DAILY Qty: 30 1RF metoprolol succinate 50 mg tablet extended release 24 hr 50 mg PO DAILY Qty: 90 2RF aspirin 81 mg tablet,delayed release (DR/EC) 81 mg PO BEDTIME Qty: 90 2RF polyethylene glycol 3350 [Miralax] 17 gram/dose powder 17 g PO DAILY PRN (Reason: constipation) Qty: 238 0RF lisinopril 40 mg tablet 40 mg PO QPM Qty: 90 3RF acetaminophen 325 mg capsule 325 mg PO QID PRN (Reason: fever or pain) Qty: 30 0RF melatonin 10 mg tablet extended release 10 mg PO .nightly Qty: 5 0RF metoprolol succinate 50 mg tablet extended release 24 hr 50 mg PO DAILY Qty: 14 0RF ciprofloxacin-dexamethasone [Ciprodex] 0.3-0.1 % drops,suspension 4 drp otic (ears) BID 7 Days 0RF alprazolam 0.5 mg Tablet 0.5 mg PO TID PRN (Reason: Anxiety) hydroxyzine HCl 50 mg Tablet 50 mg PO TID PRN (Reason: Anxiety) mirtazapine 45 mg Tablet 45 mg PO BEDTIME multivitamin Capsule 1 cap PO DAILY sertraline 50 mg Tablet 50 mg PO BEDTIME aripiprazole 2 mg Tablet 2 mg PO BEDTIME cholecalciferol (vitamin D3) 25 mcg (1,000 unit) Tablet 25 mcg PO BID omeprazole 20 mg Tablet,Delayed Release (Dr/Ec) 20 mg PO DAILY linaclotide 145 mcg Capsule 145 mcg PO DAILY diphenhydramine HCl [Benadryl] 25 mg capsule 25 mg PO BEDTIME Qty: 7 0RF cefdinir 300 mg capsule 300 mg PO BID 10 Days Qty: 20 0RF ondansetron HCl [Zofran] 4 mg tablet 4 mg PO Q8H PRN (Reason: nausea and vomiting) Qty: 14 0RF cefuroxime axetil 500 mg tablet 500 mg PO BID 7 Days Qty: 14 0RF meclizine 25 mg tablet 25 mg PO TID PRN (Reason: dizziness) Qty: 10 0RF levofloxacin 500 mg tablet 500 mg PO DAILY 7 Days Qty: 7 0RF cefuroxime axetil 500 mg tablet 500 mg PO BID 10 Days Qty: 20 0RF alprazolam 0.25 mg tablet 0.25 mg PO QID Qty: 7 0RF levofloxacin 500 mg tablet 500 mg PO DAILY Qty: 6 0RF Rx Instructions: start on 08/26 ofloxacin 0.3 % drops 10 drp otic (ears) DAILY 7 Days Qty: 5 0RF Rx Instructions: can substitute eye drops if necessary hydrocortisone 2.5 % cream with perineal applicator 1 appl MD BEDTIME PRN (Reason: hemorrhoids) Qty: 30 0RF Hemorrhoidal(PE-min oil-emma) 0.25-14-74.9 % ointment 1 appl MD BID PRN (Reason: hemorrhoids) Qty: 56 0RF polyethylene glycol 3350 [Miralax] 17 gram/dose powder 17 g PO BID Qty: 119 0RF docusate sodium [Colace] 100 mg capsule 100 mg PO BID PRN (Reason: Constipation) Qty: 14 0RF ofloxacin 0.3 % drops 5 drp otic (ear) left BID 7 Days Qty: 5 0RF alprazolam 0.25 mg tablet 0.25 mg PO TID PRN (Reason: anxiety) Qty: 7 0RF alprazolam 0.25 mg tablet 0.25 mg PO TID PRN (Reason: anxiety) Qty: 3 0RF Calmoseptine 0.44-20.6 % ointment 1 appl topical QID PRN (Reason: skin irritation) Qty: 113 0RF magnesium citrate Solution 150 ml PO DAILY PRN (Reason: constipation) Qty: 296 0RF Rx Instructions: take only when needed for constipation hydrocortisone acetate [Anucort-HC] 25 mg suppository 25 mg MD BID Qty: 12 3RF zolpidem [Ambien] 5 mg tablet 5 mg PO BEDTIME PRN (Reason: sleep) Qty: 2 0RF zolpidem [Ambien] 5 mg tablet 5 mg PO BEDTIME PRN (Reason: sleep) Qty: 2 0RF Referrals: Nitin Echevarria MD [Primary Care Provider] - 5 days Interventions: ED Discharge Assessment Last Done: 03/04/23 07:18 Discharge Date/Time: 03/04/23 07:18
[2023-03-04] MEDS: LORazepam 1 MG TABLET 2 MG PO (06:06)
[2023-03-04] MEDS: Ondansetron ODT 4 MG TAB.RAPDIS TRANSLINGU (06:46)
== END 2023-03-04 07:18 | disposition home or self-care (01) ==
PROVIDERS: Emergency Provider Emergency Medicine; PCP Internal Medicine Geriatric Medicine
DX: F41.1 Generalized anxiety disorder (principal); F41.0 Panic disorder [episodic paroxysmal anxiety]; I10 Essential (primary) hypertension; I49.3 Ventricular premature depolarization; Z79.899 Other long term (current) drug therapy
CPT/HCPCS: 99283; 99284

== ENCOUNTER 2023-03-17 03:15 | Emergency (ER) | payer OTHER, SELFPAY ==
[2023-03-17 03:23] VITALS: BP 182/90; PULSE 98; O2SAT 92
[2023-03-17 04:36] VITALS: BP 167/91; PULSE 76; RESP 16; TEMP 36.6; O2SAT 96; BMI 24.3
[2023-03-17 05:36] VITALS: BP 177/75; PULSE 77
--- NOTE | 2023-03-17 07:20 | ED.ANXIETY ---
HPI - Anxiety General Chief Complaint: Anxiety Stated Complaint: Anxiety/Hypertension Time Seen by Provider: 03/17/23 07:20 Source: patient Mode of arrival: ambulatory Limitations: no limitations History of Present Illness HPI narrative: patient with multiple visits for the same she states she is out of her medication and her anxiety is worse MD complaint: anxiety Onset (ago): day(s) Severity: severe Quality: constant Related Data Home Medications Medication Instructions Recorded Confirmed alprazolam 0.5 mg tablet 0.5 mg PO TID PRN Anxiety 08/09/20 02/06/23 aripiprazole 2 mg tablet 2 mg PO BEDTIME 08/09/20 02/06/23 cholecalciferol (vitamin D3) 25 25 mcg PO BID 08/09/20 02/06/23 mcg (1,000 unit) tablet hydroxyzine HCl 50 mg tablet 50 mg PO TID PRN Anxiety 08/09/20 02/06/23 linaclotide 145 mcg capsule 145 mcg PO DAILY 08/09/20 02/06/23 mirtazapine 45 mg tablet 45 mg PO BEDTIME 08/09/20 02/06/23 multivitamin 1 cap PO DAILY 08/09/20 02/06/23 omeprazole 20 mg tablet,delayed 20 mg PO DAILY 08/09/20 02/06/23 release sertraline 50 mg tablet 50 mg PO BEDTIME 08/09/20 02/06/23 Previous Rx's Medication Instructions Recorded escitalopram oxalate 10 mg tablet 10 mg PO DAILY #30 tabs 09/06/20 acetaminophen 325 mg capsule 325 mg PO QID PRN fever or pain 09/16/20 #30 caps aspirin 81 mg tablet,delayed 81 mg PO BEDTIME #90 tabs 09/28/20 release metoprolol succinate 50 mg 50 mg PO DAILY #90 tabs 09/28/20 tablet,extended release 24 hr menthol 0.44 %-zinc oxide 20.6 % 1 appl topical QID PRN skin 12/13/20 topical ointment (Calmoseptine) irritation #113 grams magnesium citrate 150 ml PO DAILY PRN constipation 12/14/20 #296 mL diphenhydramine HCl 25 mg capsule 25 mg PO BEDTIME insomnia #7 caps 12/25/20 (Benadryl) melatonin 10 mg tablet,extended 10 mg PO .nightly #5 tabs 02/28/21 release cefdinir 300 mg capsule 300 mg PO BID Otitis media 10 days 04/14/21 #20 caps ondansetron HCl 4 mg tablet 4 mg PO Q8H PRN nausea and 04/14/21 (Zofran) vomiting #14 tabs metoprolol succinate 50 mg 50 mg PO DAILY #14 tabs 05/22/21 tablet,extended release 24 hr ciprofloxacin 0.3 %-dexamethasone 4 drp otic (ears) BID 7 days 05/26/21 0.1 % ear drops,suspension (Ciprodex) polyethylene glycol 3350 17 17 g PO DAILY PRN constipation 07/31/21 gram/dose oral powder (Miralax) #238 grams hydrocortisone acetate 25 mg 25 mg SD BID #12 ea 08/01/21 rectal suppository (Anucort-HC) cefuroxime axetil 500 mg tablet 500 mg PO BID 7 days #14 tabs 09/01/21 meclizine 25 mg tablet 25 mg PO TID PRN dizziness #10 tabs 09/01/21 zolpidem 5 mg tablet (Ambien) 5 mg PO BEDTIME PRN sleep #2 tabs 10/29/21 zolpidem 5 mg tablet (Ambien) 5 mg PO BEDTIME PRN sleep #2 tabs 10/29/21 lisinopril 40 mg tablet 40 mg PO QPM #90 tabs 06/06/22 levofloxacin 500 mg tablet 500 mg PO DAILY 7 days #7 tabs 07/23/22 levofloxacin 500 mg tablet 500 mg PO DAILY #6 tabs 08/25/22 ofloxacin 0.3 % ear drops 10 drp otic (ears) DAILY 7 days #5 08/25/22 mL hydrocortisone 2.5 % topical cream 1 appl SD BEDTIME PRN hemorrhoids 09/20/22 with perineal applicator #30 grams docusate sodium 100 mg capsule 100 mg PO BID PRN Constipation #14 12/06/22 (Colace) caps phenylephrine 0.25 %-mineral oil 1 appl SD BID PRN hemorrhoids #56 12/06/22 14 %-petrolatm 74.9 % rectal grams ointment (Hemorrhoidal(phenyleph-min oil-petrolat)) polyethylene glycol 3350 17 17 g PO BID #119 grams 12/06/22 gram/dose oral powder (Miralax) cefuroxime axetil 500 mg tablet 500 mg PO BID 10 days #20 tabs 12/16/22 alprazolam 0.25 mg tablet 0.25 mg PO QID #7 tabs 01/04/23 ofloxacin 0.3 % ear drops 5 drp otic (ear) left BID 7 days 01/06/23 #5 mL alprazolam 0.25 mg tablet 0.25 mg PO TID PRN anxiety #7 tabs 01/11/23 alprazolam 0.25 mg tablet 0.25 mg PO TID PRN anxiety #3 tabs 02/02/23 Allergies Allergy/AdvReac Type Severity Reaction Status Date / Time penicillin G [Penicillin G] Allergy Severe ITCHY/RASH Verified 03/17/23 04:37 Sulfa (Sulfonamide Allergy Severe ITCHY,RASH, Verified 03/17/23 04:37 Antibiotics) rash [Sulfa (Sulfonamides)] trimethoprim [From Bactrim] Allergy Severe HIVES Verified 03/17/23 04:37 penicillin V Allergy Unknown rash Verified 03/17/23 04:37 sulfacetamide Allergy Unknown unknown Verified 03/17/23 04:37 [From Sulfacet-R] sulfur [From Sulfacet-R] Allergy Unknown unknown Verified 03/17/23 04:37 Review of Systems Review of Systems: Yes all other systems are reviewed and are negative Neurologic: Denies Sensory deficit (Neuro) Psychiatric: Psychiatric: Reports anxiety and Reports panic attacks PMFSH Past Medical History Medical History Anxiety Arthritis Bleeding hemorrhoids Chronic constipation Dementia Essential hypertension High blood pressure PAC (premature atrial contraction) PVC (premature ventricular contraction) SVT (supraventricular tachycardia) Vertigo Surgical History No pertinent past surgical history Social History Social History Alcohol intake: never Patient Tobacco Use Status: Never used Tobacco Advance Directives: No Advance Directives Information Provided: Yes Physical Exam Vital Signs: Vital Signs: Last Vital Signs Temp 98 F 03/17/23 04:36 Pulse 78 03/17/23 07:35 Resp 12 03/17/23 07:35 BP 162/80 H 03/17/23 07:35 Pulse Ox 98 03/17/23 07:35 O2 Del Method Room Air 03/17/23 07:35 BMI result Body Mass Index 24.3 Const: General: healthy appearing Nutritional Appearance: average body habitus Orientation/consciousness: oriented to person and patient oriented x3 Limitations: no limitations HEENT: Head: Yes normal to inspection Ears: external ears normal General nose exam: Normal external nose present Mouth: Normal oral and palatal mucosa present and oropharynx normal Throat: Yes posterior oropharynx normal Eyes: General: appearance normal, both eyes and all related structures Neck: Other: supple Neck: Yes normal visual inspection Chest: Chest palpation & inspection: normal inspection of the chest Resp: Auscultation: clear to auscultation bilaterally Cardio: Jugular venous distension: no JVD Rate: regular rate Rhythm: regular rhythm Heart sounds: S1 normal heart sound present and S2 normal heart sound present GI: Inspection: Yes normal to inspection Palpation (GI): Soft to palpation, nontender and No hepatosplenomegaly present Auscultation: normal bowel sounds : General: Yes no CVA tenderness Back/Spine/Pelvis: Back: no CVA tenderness Skin: General skin exam: no rashes or lesions noted Neuro: General: oriented to person and patient oriented x3 Cranial nerves: Yes CN's II-XII intact bilaterally Motor exam (neuro): 5/5 motor strength present throughout Sensory Exam: No Sensory deficit (Neuro) Extrem: General: Yes normal to inspection Psych: Other: baseline anxiety Course Reevaluation(s) Reevaluation #1: will give patient her alprazolam and dc home Time: 07:49 Medical Decision Making Differential Diagnosis Differential Diagnoses: The differential diagnosis associated with the presentation includes (anxiety, hypertension) Tests considered The following testing was considered but not selected: I considered obtaining an ekg, and bloods but patient HTN usually resolves with her alpraxolam Social Determinants Patient?s care significantly limited by Social Determinants of Health including: Other Social Determinant of Health (psychiatric illness) Discharge Plan Discharge Clinical Impression: Generalized anxiety disorder with panic attacks Patient Disposition: Home, Self-Care Instructions: Anxiety (ED) Prescriptions: No Action escitalopram oxalate 10 mg tablet 10 mg PO DAILY Qty: 30 1RF metoprolol succinate 50 mg tablet extended release 24 hr 50 mg PO DAILY Qty: 90 2RF aspirin 81 mg tablet,delayed release (DR/EC) 81 mg PO BEDTIME Qty: 90 2RF polyethylene glycol 3350 [Miralax] 17 gram/dose powder 17 g PO DAILY PRN (Reason: constipation) Qty: 238 0RF lisinopril 40 mg tablet 40 mg PO QPM Qty: 90 3RF acetaminophen 325 mg capsule 325 mg PO QID PRN (Reason: fever or pain) Qty: 30 0RF melatonin 10 mg tablet extended release 10 mg PO .nightly Qty: 5 0RF metoprolol succinate 50 mg tablet extended release 24 hr 50 mg PO DAILY Qty: 14 0RF ciprofloxacin-dexamethasone [Ciprodex] 0.3-0.1 % drops,suspension 4 drp otic (ears) BID 7 Days 0RF alprazolam 0.5 mg Tablet 0.5 mg PO TID PRN (Reason: Anxiety) hydroxyzine HCl 50 mg Tablet 50 mg PO TID PRN (Reason: Anxiety) mirtazapine 45 mg Tablet 45 mg PO BEDTIME multivitamin Capsule 1 cap PO DAILY sertraline 50 mg Tablet 50 mg PO BEDTIME aripiprazole 2 mg Tablet 2 mg PO BEDTIME cholecalciferol (vitamin D3) 25 mcg (1,000 unit) Tablet 25 mcg PO BID omeprazole 20 mg Tablet,Delayed Release (Dr/Ec) 20 mg PO DAILY linaclotide 145 mcg Capsule 145 mcg PO DAILY diphenhydramine HCl [Benadryl] 25 mg capsule 25 mg PO BEDTIME Qty: 7 0RF cefdinir 300 mg capsule 300 mg PO BID 10 Days Qty: 20 0RF ondansetron HCl [Zofran] 4 mg tablet 4 mg PO Q8H PRN (Reason: nausea and vomiting) Qty: 14 0RF cefuroxime axetil 500 mg tablet 500 mg PO BID 7 Days Qty: 14 0RF meclizine 25 mg tablet 25 mg PO TID PRN (Reason: dizziness) Qty: 10 0RF levofloxacin 500 mg tablet 500 mg PO DAILY 7 Days Qty: 7 0RF cefuroxime axetil 500 mg tablet 500 mg PO BID 10 Days Qty: 20 0RF alprazolam 0.25 mg tablet 0.25 mg PO QID Qty: 7 0RF levofloxacin 500 mg tablet 500 mg PO DAILY Qty: 6 0RF Rx Instructions: start on 08/26 ofloxacin 0.3 % drops 10 drp otic (ears) DAILY 7 Days Qty: 5 0RF Rx Instructions: can substitute eye drops if necessary hydrocortisone 2.5 % cream with perineal applicator 1 appl SD BEDTIME PRN (Reason: hemorrhoids) Qty: 30 0RF Hemorrhoidal(PE-min oil-emma) 0.25-14-74.9 % ointment 1 appl SD BID PRN (Reason: hemorrhoids) Qty: 56 0RF polyethylene glycol 3350 [Miralax] 17 gram/dose powder 17 g PO BID Qty: 119 0RF docusate sodium [Colace] 100 mg capsule 100 mg PO BID PRN (Reason: Constipation) Qty: 14 0RF ofloxacin 0.3 % drops 5 drp otic (ear) left BID 7 Days Qty: 5 0RF alprazolam 0.25 mg tablet 0.25 mg PO TID PRN (Reason: anxiety) Qty: 7 0RF alprazolam 0.25 mg tablet 0.25 mg PO TID PRN (Reason: anxiety) Qty: 3 0RF Calmoseptine 0.44-20.6 % ointment 1 appl topical QID PRN (Reason: skin irritation) Qty: 113 0RF magnesium citrate Solution 150 ml PO DAILY PRN (Reason: constipation) Qty: 296 0RF Rx Instructions: take only when needed for constipation hydrocortisone acetate [Anucort-HC] 25 mg suppository 25 mg SD BID Qty: 12 3RF zolpidem [Ambien] 5 mg tablet 5 mg PO BEDTIME PRN (Reason: sleep) Qty: 2 0RF zolpidem [Ambien] 5 mg tablet 5 mg PO BEDTIME PRN (Reason: sleep) Qty: 2 0RF Referrals: Name,MD Nitin [Primary Care Provider] - 5 days
[2023-03-17 07:35] VITALS: BP 162/80; PULSE 78; RESP 12; O2SAT 98
[2023-03-17] MEDS: ALPRAZolam 0.5 MG TABLET PO (07:59)
== END 2023-03-17 08:20 | disposition home or self-care (01) ==
PROVIDERS: Emergency Provider Emergency Medicine; PCP Internal Medicine Geriatric Medicine
DX: F41.1 Generalized anxiety disorder (principal); F43.0 Acute stress reaction; F41.0 Panic disorder [episodic paroxysmal anxiety]; Z79.899 Other long term (current) drug therapy
CPT/HCPCS: 99283

== ENCOUNTER 2023-03-18 01:55 | Emergency (ER) | payer OTHER, SELFPAY ==
[2023-03-18 02:05] VITALS: BP 146/86; BP 168/90; PULSE 78; PULSE 82; RESP 18; TEMP 36.2; O2SAT 100; O2SAT 98; BMI 24.2
--- NOTE | 2023-03-18 03:23 | ED_ITS ---
HPI - Anxiety General Chief Complaint: Anxiety Stated Complaint: anxiety and htn Time Seen by Provider: 03/18/23 02:50 History of Present Illness HPI narrative: Patient is a 77-year-old female with a history of anxiety. Presents today feeling anxious again. Patient claims she is out of her medications. No fever no chills no chest pain or shortness breath no diaphoresis. Episode very similar to previous bouts. Related Data Home Medications Medication Instructions Recorded Confirmed alprazolam 0.5 mg tablet 0.5 mg PO TID PRN Anxiety 08/09/20 02/06/23 aripiprazole 2 mg tablet 2 mg PO BEDTIME 08/09/20 02/06/23 cholecalciferol (vitamin D3) 25 25 mcg PO BID 08/09/20 02/06/23 mcg (1,000 unit) tablet hydroxyzine HCl 50 mg tablet 50 mg PO TID PRN Anxiety 08/09/20 02/06/23 linaclotide 145 mcg capsule 145 mcg PO DAILY 08/09/20 02/06/23 mirtazapine 45 mg tablet 45 mg PO BEDTIME 08/09/20 02/06/23 multivitamin 1 cap PO DAILY 08/09/20 02/06/23 omeprazole 20 mg tablet,delayed 20 mg PO DAILY 08/09/20 02/06/23 release sertraline 50 mg tablet 50 mg PO BEDTIME 08/09/20 02/06/23 Previous Rx's Medication Instructions Recorded escitalopram oxalate 10 mg tablet 10 mg PO DAILY #30 tabs 09/06/20 acetaminophen 325 mg capsule 325 mg PO QID PRN fever or pain 09/16/20 #30 caps aspirin 81 mg tablet,delayed 81 mg PO BEDTIME #90 tabs 09/28/20 release metoprolol succinate 50 mg 50 mg PO DAILY #90 tabs 09/28/20 tablet,extended release 24 hr menthol 0.44 %-zinc oxide 20.6 % 1 appl topical QID PRN skin 12/13/20 topical ointment (Calmoseptine) irritation #113 grams magnesium citrate 150 ml PO DAILY PRN constipation 12/14/20 #296 mL diphenhydramine HCl 25 mg capsule 25 mg PO BEDTIME insomnia #7 caps 12/25/20 (Benadryl) melatonin 10 mg tablet,extended 10 mg PO .nightly #5 tabs 01/07/21 release cefdinir 300 mg capsule 300 mg PO BID Otitis media 10 days 04/14/21 #20 caps ondansetron HCl 4 mg tablet 4 mg PO Q8H PRN nausea and 04/14/21 (Zofran) vomiting #14 tabs metoprolol succinate 50 mg 50 mg PO DAILY #14 tabs 05/22/21 tablet,extended release 24 hr ciprofloxacin 0.3 %-dexamethasone 4 drp otic (ears) BID 7 days 05/26/21 0.1 % ear drops,suspension (Ciprodex) polyethylene glycol 3350 17 17 g PO DAILY PRN constipation 07/31/21 gram/dose oral powder (Miralax) #238 grams hydrocortisone acetate 25 mg 25 mg UT BID #12 ea 08/01/21 rectal suppository (Anucort-HC) cefuroxime axetil 500 mg tablet 500 mg PO BID 7 days #14 tabs 09/01/21 meclizine 25 mg tablet 25 mg PO TID PRN dizziness #10 tabs 09/01/21 zolpidem 5 mg tablet (Ambien) 5 mg PO BEDTIME PRN sleep #2 tabs 10/29/21 zolpidem 5 mg tablet (Ambien) 5 mg PO BEDTIME PRN sleep #2 tabs 10/29/21 lisinopril 40 mg tablet 40 mg PO QPM #90 tabs 06/06/22 levofloxacin 500 mg tablet 500 mg PO DAILY 7 days #7 tabs 07/23/22 levofloxacin 500 mg tablet 500 mg PO DAILY #6 tabs 08/25/22 ofloxacin 0.3 % ear drops 10 drp otic (ears) DAILY 7 days #5 08/25/22 mL hydrocortisone 2.5 % topical cream 1 appl UT BEDTIME PRN hemorrhoids 09/20/22 with perineal applicator #30 grams docusate sodium 100 mg capsule 100 mg PO BID PRN Constipation #14 12/06/22 (Colace) caps phenylephrine 0.25 %-mineral oil 1 appl UT BID PRN hemorrhoids #56 12/06/22 14 %-petrolatm 74.9 % rectal grams ointment (Hemorrhoidal(phenyleph-min oil-petrolat)) polyethylene glycol 3350 17 17 g PO BID #119 grams 12/06/22 gram/dose oral powder (Miralax) cefuroxime axetil 500 mg tablet 500 mg PO BID 10 days #20 tabs 12/16/22 alprazolam 0.25 mg tablet 0.25 mg PO QID #7 tabs 01/04/23 ofloxacin 0.3 % ear drops 5 drp otic (ear) left BID 7 days 01/06/23 #5 mL alprazolam 0.25 mg tablet 0.25 mg PO TID PRN anxiety #7 tabs 01/11/23 alprazolam 0.25 mg tablet 0.25 mg PO TID PRN anxiety #3 tabs 02/02/23 Allergies Allergy/AdvReac Type Severity Reaction Status Date / Time penicillin G [Penicillin G] Allergy Severe ITCHY/RASH Verified 03/17/23 04:37 Sulfa (Sulfonamide Allergy Severe ITCHY,RASH, Verified 03/17/23 04:37 Antibiotics) rash [Sulfa (Sulfonamides)] trimethoprim [From Bactrim] Allergy Severe HIVES Verified 03/17/23 04:37 penicillin V Allergy Unknown rash Verified 03/17/23 04:37 sulfacetamide Allergy Unknown unknown Verified 03/17/23 04:37 [From Sulfacet-R] sulfur [From Sulfacet-R] Allergy Unknown unknown Verified 03/17/23 04:37 Review of Systems Review of Systems: Positive anxiety Yes all other systems are reviewed and are negative PMFSH Past Medical History Attestation statement: The following information was validated with the patient. Medical History Anxiety Arthritis Bleeding hemorrhoids Chronic constipation Dementia Essential hypertension High blood pressure PAC (premature atrial contraction) PVC (premature ventricular contraction) SVT (supraventricular tachycardia) Vertigo Surgical History No pertinent past surgical history Social History Social History Alcohol intake: never Patient Tobacco Use Status: Never used Tobacco Smoked in Last 30 Days: No Use of substances other than those prescribed or required for medical reasons: No Advance Directives: No Advance Directives Information Provided: Yes Physical Exam Vital Signs: Vital Signs: Last Vital Signs Temp 97.1 F 03/18/23 02:05 Pulse 82 03/18/23 02:05 Resp 18 03/18/23 02:05 BP 146/86 H 03/18/23 02:05 Pulse Ox 98 03/18/23 02:05 O2 Del Method Room Air 03/18/23 02:05 BMI result Body Mass Index 24.2 Medical Decision Making Medical Decision Making [facility] Narrative: Patient's old record reviewed. Multiple ED visits for anxiety. Patient's blood pressure is 146/86. Neurologically intact in no distress. Heart rate is 82. Has follow-up on an outpatient basis. [place] patient's symptoms consistent with anxiety. Because of multiple multiple visits to the emergency department. Asked patient to follow-up with her primary physician. No additional medication will be given at this time Differential Diagnosis Differential Diagnoses: The differential diagnosis associated with the presentation includes Anxiety Lab Data [facility] Lab Attestation statement: I reviewed the patient's lab results. External Record Review External record reviewed: Inpatient record Chronic Conditions Diary Social Determinants Patient?s care significantly limited by Social Determinants of Health including: Other Social Determinant of Health Psychiatric illness Discharge Plan Discharge Clinical Impression: Acute anxiety Patient Disposition: Home, Self-Care Instructions: Anxiety (ED) Prescriptions: No Action escitalopram oxalate 10 mg tablet 10 mg PO DAILY Qty: 30 1RF metoprolol succinate 50 mg tablet extended release 24 hr 50 mg PO DAILY Qty: 90 2RF aspirin 81 mg tablet,delayed release (DR/EC) 81 mg PO BEDTIME Qty: 90 2RF polyethylene glycol 3350 [Miralax] 17 gram/dose powder 17 g PO DAILY PRN (Reason: constipation) Qty: 238 0RF lisinopril 40 mg tablet 40 mg PO QPM Qty: 90 3RF acetaminophen 325 mg capsule 325 mg PO QID PRN (Reason: fever or pain) Qty: 30 0RF melatonin 10 mg tablet extended release 10 mg PO .nightly Qty: 5 0RF metoprolol succinate 50 mg tablet extended release 24 hr 50 mg PO DAILY Qty: 14 0RF ciprofloxacin-dexamethasone [Ciprodex] 0.3-0.1 % drops,suspension 4 drp otic (ears) BID 7 Days 0RF alprazolam 0.5 mg Tablet 0.5 mg PO TID PRN (Reason: Anxiety) hydroxyzine HCl 50 mg Tablet 50 mg PO TID PRN (Reason: Anxiety) mirtazapine 45 mg Tablet 45 mg PO BEDTIME multivitamin Capsule 1 cap PO DAILY sertraline 50 mg Tablet 50 mg PO BEDTIME aripiprazole 2 mg Tablet 2 mg PO BEDTIME cholecalciferol (vitamin D3) 25 mcg (1,000 unit) Tablet 25 mcg PO BID omeprazole 20 mg Tablet,Delayed Release (Dr/Ec) 20 mg PO DAILY linaclotide 145 mcg Capsule 145 mcg PO DAILY diphenhydramine HCl [Benadryl] 25 mg capsule 25 mg PO BEDTIME Qty: 7 0RF cefdinir 300 mg capsule 300 mg PO BID 10 Days Qty: 20 0RF ondansetron HCl [Zofran] 4 mg tablet 4 mg PO Q8H PRN (Reason: nausea and vomiting) Qty: 14 0RF cefuroxime axetil 500 mg tablet 500 mg PO BID 7 Days Qty: 14 0RF meclizine 25 mg tablet 25 mg PO TID PRN (Reason: dizziness) Qty: 10 0RF levofloxacin 500 mg tablet 500 mg PO DAILY 7 Days Qty: 7 0RF cefuroxime axetil 500 mg tablet 500 mg PO BID 10 Days Qty: 20 0RF alprazolam 0.25 mg tablet 0.25 mg PO QID Qty: 7 0RF levofloxacin 500 mg tablet 500 mg PO DAILY Qty: 6 0RF Rx Instructions: start on 08/26 ofloxacin 0.3 % drops 10 drp otic (ears) DAILY 7 Days Qty: 5 0RF Rx Instructions: can substitute eye drops if necessary hydrocortisone 2.5 % cream with perineal applicator 1 appl UT BEDTIME PRN (Reason: hemorrhoids) Qty: 30 0RF Hemorrhoidal(PE-min oil-emma) 0.25-14-74.9 % ointment 1 appl UT BID PRN (Reason: hemorrhoids) Qty: 56 0RF polyethylene glycol 3350 [Miralax] 17 gram/dose powder 17 g PO BID Qty: 119 0RF docusate sodium [Colace] 100 mg capsule 100 mg PO BID PRN (Reason: Constipation) Qty: 14 0RF ofloxacin 0.3 % drops 5 drp otic (ear) left BID 7 Days Qty: 5 0RF alprazolam 0.25 mg tablet 0.25 mg PO TID PRN (Reason: anxiety) Qty: 7 0RF alprazolam 0.25 mg tablet 0.25 mg PO TID PRN (Reason: anxiety) Qty: 3 0RF Calmoseptine 0.44-20.6 % ointment 1 appl topical QID PRN (Reason: skin irritation) Qty: 113 0RF magnesium citrate Solution 150 ml PO DAILY PRN (Reason: constipation) Qty: 296 0RF Rx Instructions: take only when needed for constipation hydrocortisone acetate [Anucort-HC] 25 mg suppository 25 mg UT BID Qty: 12 3RF zolpidem [Ambien] 5 mg tablet 5 mg PO BEDTIME PRN (Reason: sleep) Qty: 2 0RF zolpidem [Ambien] 5 mg tablet 5 mg PO BEDTIME PRN (Reason: sleep) Qty: 2 0RF Referrals: Physician,Unknown J [Primary Care Provider] - 03/20/23
[2023-03-18] MEDS: Acetaminophen 325 MG TABLET 650 MG PO (03:27)
--- NOTE | 2023-03-18 03:33 | PC.NURSE ---
Discharge instructions given/explained to pt Ambulates safely/independently No apparent distress No sob, can speak in full sentences
== END 2023-03-18 03:32 | disposition home or self-care (01) ==
PROVIDERS: Emergency Provider Emergency Medicine Emergency Medical Services
DX: F41.9 Anxiety disorder, unspecified (principal); I10 Essential (primary) hypertension; Z79.82 Long term (current) use of aspirin; Z79.899 Other long term (current) drug therapy
CPT/HCPCS: 99283; 99284

== ENCOUNTER 2023-04-04 03:12 | Emergency (ER) | payer OTHER, SELFPAY ==
--- NOTE | ~2023-04-04 | CT_ITS ---
EXAMINATION: NONCONTRAST HEAD CT NONCONTRAST CERVICAL SPINE CT INDICATION INFORMATION: Fall. Headache. COMPARISON: 01/01/2023 TECHNIQUE: Separate noncontrast CT examinations of the head and cervical spine were performed. Coronal and sagittal images were created for each examination at the technologist workstation. This CT examination was performed using dose optimization techniques as appropriate, variously including the following: *Automated exposure control *Adjustment of mA and/or kV according to patient size (this includes techniques or standardized protocols for targeted exams where dose is matched to indication/reason for exam; i.e. extremities or head) *Use of iterative reconstruction technique DLP: 1156 mGy-cm FINDINGS: Head: There is no evidence of acute intracranial hemorrhage or territorial infarction. No abnormal mass effect or midline shift is seen. Chatterjee to white matter differentiation is well preserved. No extra-axial fluid collections are identified. No hydrocephalus. No significant volume loss. Patchy periventricular and deep white matter hypoattenuation is consistent with mild small vessel ischemic changes. No acute osseous or soft tissue abnormality. Partial left mastoid air cell effusion. Secretions present within a few of the left ethmoid air cells. Cervical spine: There is anatomic alignment of the vertebral bodies and posterior elements. The atlantoaxial and atlantooccipital articulations are intact. Vertebral body heights maintained. Endplate osteophytes and loss of disc space height at C5-C6. Small endplate osteophytes at C6-C7. 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 There is at least mild bilateral neural foraminal narrowing at C5-C6, worse on the right and at least mild bilateral foraminal narrowing at C4-C5 largely due to facet arthropathy which is present throughout the cervical spine. No evidence of acute fracture. No prevertebral soft tissue swelling. Visualized portions of the lung apices are unremarkable. The thyroid gland is unremarkable. CT/CT cervical spine wo IV con IMPRESSION: * No acute intracranial findings. * No acute fracture or malalignment of the cervical spine. Degenerative changes as described above.
[2023-04-04 03:20] VITALS: BP 156/89; BP 200/110; PULSE 83; PULSE 96; RESP 12; TEMP 37.2; O2SAT 99; BMI 27.1
--- NOTE | 2023-04-04 03:32 | ED.HA ---
HPI - Headache General Chief Complaint: Headache Stated Complaint: migraine Time Seen by Provider: 04/04/23 03:27 Source: patient Mode of arrival: EMS Limitations: no limitations History of Present Illness HPI Narrative: Patient comes to the emergency room complaining of a headache. Patient states that approximately 2 days ago, patient fell backwards hitting the back of her head neck and upper back. Patient complaining of a headache, denies loss of consciousness, denies being on blood thinners. Denies chest pain or shortness of breath Related Data Home Medications Medication Instructions Recorded Confirmed alprazolam 0.5 mg tablet 0.5 mg PO TID PRN Anxiety 08/09/20 02/06/23 aripiprazole 2 mg tablet 2 mg PO BEDTIME 08/09/20 02/06/23 cholecalciferol (vitamin D3) 25 25 mcg PO BID 08/09/20 02/06/23 mcg (1,000 unit) tablet hydroxyzine HCl 50 mg tablet 50 mg PO TID PRN Anxiety 08/09/20 02/06/23 linaclotide 145 mcg capsule 145 mcg PO DAILY 08/09/20 02/06/23 mirtazapine 45 mg tablet 45 mg PO BEDTIME 08/09/20 02/06/23 multivitamin 1 cap PO DAILY 08/09/20 02/06/23 omeprazole 20 mg tablet,delayed 20 mg PO DAILY 08/09/20 02/06/23 release sertraline 50 mg tablet 50 mg PO BEDTIME 08/09/20 02/06/23 Previous Rx's Medication Instructions Recorded escitalopram oxalate 10 mg tablet 10 mg PO DAILY #30 tabs 09/06/20 acetaminophen 325 mg capsule 325 mg PO QID PRN fever or pain 09/16/20 #30 caps aspirin 81 mg tablet,delayed 81 mg PO BEDTIME #90 tabs 09/28/20 release metoprolol succinate 50 mg 50 mg PO DAILY #90 tabs 09/28/20 tablet,extended release 24 hr menthol 0.44 %-zinc oxide 20.6 % 1 appl topical QID PRN skin 12/13/20 topical ointment (Calmoseptine) irritation #113 grams magnesium citrate 150 ml PO DAILY PRN constipation 12/14/20 #296 mL diphenhydramine HCl 25 mg capsule 25 mg PO BEDTIME insomnia #7 caps 12/25/20 (Benadryl) melatonin 10 mg tablet,extended 10 mg PO .nightly #5 tabs 01/07/21 release cefdinir 300 mg capsule 300 mg PO BID Otitis media 10 days 04/14/21 #20 caps ondansetron HCl 4 mg tablet 4 mg PO Q8H PRN nausea and 04/14/21 (Zofran) vomiting #14 tabs metoprolol succinate 50 mg 50 mg PO DAILY #14 tabs 05/22/21 tablet,extended release 24 hr ciprofloxacin 0.3 %-dexamethasone 4 drp otic (ears) BID 7 days 05/26/21 0.1 % ear drops,suspension (Ciprodex) polyethylene glycol 3350 17 17 g PO DAILY PRN constipation 07/31/21 gram/dose oral powder (Miralax) #238 grams hydrocortisone acetate 25 mg 25 mg DC BID #12 ea 08/01/21 rectal suppository (Anucort-HC) cefuroxime axetil 500 mg tablet 500 mg PO BID 7 days #14 tabs 09/01/21 meclizine 25 mg tablet 25 mg PO TID PRN dizziness #10 tabs 09/01/21 zolpidem 5 mg tablet (Ambien) 5 mg PO BEDTIME PRN sleep #2 tabs 10/29/21 zolpidem 5 mg tablet (Ambien) 5 mg PO BEDTIME PRN sleep #2 tabs 10/29/21 lisinopril 40 mg tablet 40 mg PO QPM #90 tabs 06/06/22 levofloxacin 500 mg tablet 500 mg PO DAILY 7 days #7 tabs 07/23/22 levofloxacin 500 mg tablet 500 mg PO DAILY #6 tabs 08/25/22 ofloxacin 0.3 % ear drops 10 drp otic (ears) DAILY 7 days #5 08/25/22 mL hydrocortisone 2.5 % topical cream 1 appl DC BEDTIME PRN hemorrhoids 09/20/22 with perineal applicator #30 grams docusate sodium 100 mg capsule 100 mg PO BID PRN Constipation #14 12/06/22 (Colace) caps phenylephrine 0.25 %-mineral oil 1 appl DC BID PRN hemorrhoids #56 12/06/22 14 %-petrolatm 74.9 % rectal grams ointment (Hemorrhoidal(phenyleph-min oil-petrolat)) polyethylene glycol 3350 17 17 g PO BID #119 grams 12/06/22 gram/dose oral powder (Miralax) cefuroxime axetil 500 mg tablet 500 mg PO BID 10 days #20 tabs 12/16/22 alprazolam 0.25 mg tablet 0.25 mg PO QID #7 tabs 01/04/23 ofloxacin 0.3 % ear drops 5 drp otic (ear) left BID 7 days 01/06/23 #5 mL alprazolam 0.25 mg tablet 0.25 mg PO TID PRN anxiety #7 tabs 01/11/23 alprazolam 0.25 mg tablet 0.25 mg PO TID PRN anxiety #3 tabs 02/02/23 Allergies Allergy/AdvReac Type Severity Reaction Status Date / Time penicillin G [Penicillin G] Allergy Severe ITCHY/RASH Verified 03/17/23 04:37 Sulfa (Sulfonamide Allergy Severe ITCHY,RASH, Verified 03/17/23 04:37 Antibiotics) rash [Sulfa (Sulfonamides)] trimethoprim [From Bactrim] Allergy Severe HIVES Verified 03/17/23 04:37 penicillin V Allergy Unknown rash Verified 03/17/23 04:37 sulfacetamide Allergy Unknown unknown Verified 03/17/23 04:37 [From Sulfacet-R] sulfur [From Sulfacet-R] Allergy Unknown unknown Verified 03/17/23 04:37 Review of Systems Review of Systems: Constitutional : No Weight loss, No Fever, No Chills, No Night Sweats, No Fatigue, No Malaise ENT/Mouth : No Hearing loss, No Ear Pain, No Nasal Congestion, No Sinus Pain, No Hoarseness, No sore throat, No Rhinorrhea, No Swallowing Difficulty Eyes: No Eye Pain, No Swelling, No Redness, No Foreign Body, No Discharge, No Vision Changes Cardiovascular : No Chest Pain, No SOB, No Dyspnea on Exertion, No Orthopnea, No Edema, No Palpitations Respiratory : No Cough, No Sputum, No Wheezing, No Smoke Exposure, No Dyspnea Gastrointestinal : No Nausea, No Vomiting, No Diarrhea, No Constipation, No abdominal Pain, No Hematochezia, No Melena Genitourinary : no irregular bleeding, No Dysuria, No Urinary Frequency, No Hematuria, No Urinary Incontinence, No Urgency, No Flank Pain, No Urinary Flow Changes, No Hesitancy Musculoskeletal : Complaining of posterior headache, neck pain and upper back pain after a fall, No joint pain, No Myalgias, No Joint Swelling Skin : No Skin Lesions, No rash Neuro : No Weakness, No Numbness, No Paresthesias, No Loss of Consciousness, No Dizziness, No Headache Psych : No Anxiety/Panic, No Depression, No SI/HI/AH/VH, No Social Issues, Heme/Lymph: No Bruising, No Bleeding,No Lymphadenopathy Endocrine : No Polyuria, No Polydipsia, No Temperature Intolerance [facility] Past Medical History Medical History Anxiety Arthritis Bleeding hemorrhoids Chronic constipation Dementia Essential hypertension High blood pressure PAC (premature atrial contraction) PVC (premature ventricular contraction) SVT (supraventricular tachycardia) Vertigo Surgical History No pertinent past surgical history Social History Social History Alcohol intake: never Patient Tobacco Use Status: Never used Tobacco Smoked in Last 30 Days: No Use of substances other than those prescribed or required for medical reasons: No Advance Directives: No Advance Directives Information Provided: Yes Physical Exam Vital Signs: Vital Signs: Last Vital Signs Temp 98.9 F 04/04/23 03:20 Pulse 72 04/04/23 04:57 Resp 14 04/04/23 04:57 BP 134/69 04/04/23 04:57 Pulse Ox 100 04/04/23 04:57 O2 Del Method Room Air 04/04/23 03:20 BMI result Body Mass Index 27.1 Const: Other: Appearance: Alert. Oriented X3. No acute distress. Eyes: Pupils equal, round and reactive to light. ENT: Pharynx normal. Neck: Normal inspection. Neck supple. No palpable step-offs, moderate discomfort to palpation bilateral sides of the neck CVS: Normal heart rate and rhythm. Pulses normal. Normal S1 and S2 Respiratory: No respiratory distress. Breath sounds normal. No Wheezing. No rales Abdomen: Soft and nontender. No rigidity. No distention. Back: Pain to palpation in upper back bilaterally Skin: Skin warm and dry. Normal skin color. Normal skin turgor. Extremities: No lower extremity edema. No Lacerations. No Rash Neuro: Oriented X 3. No motor deficit. No sensory deficit. Moving all extremities. No slurred speech. CN 2 through 12 grossly intact Psych: calm, cooperative, normal affect Medications Administered Discontinued Medications Generic Name Dose Route Start Last Admin Trade Name Beau PRN Reason Stop Dose Admin Acetaminophen 650 mg 04/04/23 04:11 04/04/23 04:18 Acetaminophen 325 Mg Tablet PO 04/04/23 04:12 650 mg ONCE ONE Administration Lorazepam 1 mg 04/04/23 04:21 04/04/23 04:41 Lorazepam 1 Mg Tablet PO 04/04/23 04:22 1 mg ONCE ONE Administration Medical Decision Making Medical Decision Making [facility] Narrative: -initially patient said that she hit her back and it was hurting. Then she said that her back was actually not Hurting. Imaging were canceled. -head CT of the spine and head do not show any acute abnormality -patient states she is anxious, requesting Ativan, given 1 mg p.o., also Tylenol. -overall patient feeling extensions, no headache, refer discharge Lab Data [facility] Lab Attestation statement: I reviewed the patient's lab results. 04/04/23 03:30 04/04/23 03:30 Labs: Lab Results 04/04/23 04/04/23 Range/Units 03:30 03:30 WBC 6.7 (4.8-10.8) X10*3/uL RBC 4.20 (4.20-5.50) X10*6/uL Hgb 11.9 L (12.0-16.0) g/dl Hct 35.9 L (37.0-47.0) % MCV 85.5 (80.0-98.0) fL MCH 28.3 (27.0-33.0) pg MCHC 33.1 (31.0-35.0) g/dl RDW 14.3 (11.0-16.0) % Plt Count 287 (160-400) X10*3/uL MPV 8.7 L (9.4-12.3) fL Immature Gran % (Auto) 0.4 (0.0-0.4) % Neut % (Auto) 58.0 (45-73) % Lymph % (Auto) 30.2 (20-40) % [place] % (Auto) 9.5 (2-11) % Eos % (Auto) 1.2 (0-4) % Baso % (Auto) 0.7 (0-2) % Lymph # (Auto) 2.0 (1.2-4.9) X10*3/uL [place] # (Auto) 0.6 (0.1-1.2) X10*3/uL Eos # (Auto) 0.1 (0.0-0.4) X10*3/uL Baso # (Auto) 0.1 (0.0-0.2) X10*3/uL Abs Immat Gran (auto) 0.03 (0.00-0.03) X10*3/uL Absolute Neuts (auto) 3.9 (2.0-8.3) x10*3/uL Absolute Nucleated RBC 0.000 (0.0-0.012) X10*3/uL Nucleated RBC % (auto) 0.0 (0.0-0.2) /100WBC Sodium 138 (135-145) mmol/L Potassium 4.7 (3.3-5.1) mmol/L Chloride 103 (96-108) mmol/L Carbon Dioxide 26 (22-29) mmol/L Anion Gap 14 (12-20) BUN 26 H (9-16) mg/dL Creatinine 1.06 (0.5-1.4) mg/dL Estim Creat Clear Calc 47.9 Estimated GFR 50 Random Glucose 108 (60-115) mg/dL Calcium 8.9 (8.4-10.2) mg/dL Total Bilirubin 0.3 (0.0-1.0) mg/dL AST 32 H (5-31) U/L ALT 20 (0-31) U/L Alkaline Phosphatase 63 (39-117) U/L Total Protein 8.0 (6.5-8.0) g/dL Albumin 4.3 (3.5-5.0) g/dL Radiology Impression Discussion of test interpretation with radiology: I have reviewed the radiologist's reading. Radiologist Impression: Head: There is no evidence of acute intracranial hemorrhage or territorial infarction. No abnormal mass effect or midline shift is seen. Chatterjee to white matter differentiation is well preserved. No extra-axial fluid collections are identified. No hydrocephalus. No significant volume loss. Patchy periventricular and deep white matter hypoattenuation is consistent with mild small vessel ischemic changes. No acute osseous or soft tissue abnormality. Partial left mastoid air cell effusion. Secretions present within a few of the left ethmoid air cells. Cervical spine: There is anatomic alignment of the vertebral bodies and posterior elements. The atlantoaxial and atlantooccipital articulations are intact. Vertebral body heights maintained. Endplate osteophytes and loss of disc space height at C5-C6. Small endplate osteophytes at C6-C7. 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 There is at least mild bilateral neural foraminal narrowing at C5-C6, worse on the right and at least mild bilateral foraminal narrowing at C4-C5 largely due to facet arthropathy which is present throughout the cervical spine. No evidence of acute fracture. No prevertebral soft tissue swelling. Visualized portions of the lung apices are unremarkable. The thyroid gland is unremarkable. CT/CT cervical spine wo IV con IMPRESSION: *? No acute intracranial findings. *? No acute fracture or malalignment of the cervical spine. Degenerative changes as described above. Discharge Plan Discharge Clinical Impression: Headache, Accidental fall, Anxiety Patient Disposition: Home, Self-Care Instructions: Anxiety (ED), Acute Headache (DC) Additional Instructions: Please follow-up with your primary care physician tomorrow. If you have any worsening or new symptoms, please return to the emergency room or call 911 Prescriptions: No Action escitalopram oxalate 10 mg tablet 10 mg PO DAILY Qty: 30 1RF metoprolol succinate 50 mg tablet extended release 24 hr 50 mg PO DAILY Qty: 90 2RF aspirin 81 mg tablet,delayed release (DR/EC) 81 mg PO BEDTIME Qty: 90 2RF polyethylene glycol 3350 [Miralax] 17 gram/dose powder 17 g PO DAILY PRN (Reason: constipation) Qty: 238 0RF lisinopril 40 mg tablet 40 mg PO QPM Qty: 90 3RF acetaminophen 325 mg capsule 325 mg PO QID PRN (Reason: fever or pain) Qty: 30 0RF melatonin 10 mg tablet extended release 10 mg PO .nightly Qty: 5 0RF metoprolol succinate 50 mg tablet extended release 24 hr 50 mg PO DAILY Qty: 14 0RF ciprofloxacin-dexamethasone [Ciprodex] 0.3-0.1 % drops,suspension 4 drp otic (ears) BID 7 Days 0RF alprazolam 0.5 mg Tablet 0.5 mg PO TID PRN (Reason: Anxiety) hydroxyzine HCl 50 mg Tablet 50 mg PO TID PRN (Reason: Anxiety) mirtazapine 45 mg Tablet 45 mg PO BEDTIME multivitamin Capsule 1 cap PO DAILY sertraline 50 mg Tablet 50 mg PO BEDTIME aripiprazole 2 mg Tablet 2 mg PO BEDTIME cholecalciferol (vitamin D3) 25 mcg (1,000 unit) Tablet 25 mcg PO BID omeprazole 20 mg Tablet,Delayed Release (Dr/Ec) 20 mg PO DAILY linaclotide 145 mcg Capsule 145 mcg PO DAILY diphenhydramine HCl [Benadryl] 25 mg capsule 25 mg PO BEDTIME Qty: 7 0RF cefdinir 300 mg capsule 300 mg PO BID 10 Days Qty: 20 0RF ondansetron HCl [Zofran] 4 mg tablet 4 mg PO Q8H PRN (Reason: nausea and vomiting) Qty: 14 0RF cefuroxime axetil 500 mg tablet 500 mg PO BID 7 Days Qty: 14 0RF meclizine 25 mg tablet 25 mg PO TID PRN (Reason: dizziness) Qty: 10 0RF levofloxacin 500 mg tablet 500 mg PO DAILY 7 Days Qty: 7 0RF cefuroxime axetil 500 mg tablet 500 mg PO BID 10 Days Qty: 20 0RF alprazolam 0.25 mg tablet 0.25 mg PO QID Qty: 7 0RF levofloxacin 500 mg tablet 500 mg PO DAILY Qty: 6 0RF Rx Instructions: start on 08/26 ofloxacin 0.3 % drops 10 drp otic (ears) DAILY 7 Days Qty: 5 0RF Rx Instructions: can substitute eye drops if necessary hydrocortisone 2.5 % cream with perineal applicator 1 appl DC BEDTIME PRN (Reason: hemorrhoids) Qty: 30 0RF Hemorrhoidal(PE-min oil-emma) 0.25-14-74.9 % ointment 1 appl DC BID PRN (Reason: hemorrhoids) Qty: 56 0RF polyethylene glycol 3350 [Miralax] 17 gram/dose powder 17 g PO BID Qty: 119 0RF docusate sodium [Colace] 100 mg capsule 100 mg PO BID PRN (Reason: Constipation) Qty: 14 0RF ofloxacin 0.3 % drops 5 drp otic (ear) left BID 7 Days Qty: 5 0RF alprazolam 0.25 mg tablet 0.25 mg PO TID PRN (Reason: anxiety) Qty: 7 0RF alprazolam 0.25 mg tablet 0.25 mg PO TID PRN (Reason: anxiety) Qty: 3 0RF Calmoseptine 0.44-20.6 % ointment 1 appl topical QID PRN (Reason: skin irritation) Qty: 113 0RF magnesium citrate Solution 150 ml PO DAILY PRN (Reason: constipation) Qty: 296 0RF Rx Instructions: take only when needed for constipation hydrocortisone acetate [Anucort-HC] 25 mg suppository 25 mg DC BID Qty: 12 3RF zolpidem [Ambien] 5 mg tablet 5 mg PO BEDTIME PRN (Reason: sleep) Qty: 2 0RF zolpidem [Ambien] 5 mg tablet 5 mg PO BEDTIME PRN (Reason: sleep) Qty: 2 0RF
[2023-04-04 03:35] LABS: MANUAL DIFF FLAG NO
[2023-04-04 03:37] LABS: Basophils Absolute Auto 0.1 X10*3/uL (0.0-0.2); Basophils Percent Auto 0.7 % (0-2); Eosinophils Absolute Auto 0.1 X10*3/uL (0.0-0.4); Eosinophils Percent Auto 1.2 % (0-4); Hematocrit 35.9 % (37.0-47.0); Hemoglobin 11.9 g/dl (12.0-16.0); Imm Gran Abs Auto 0.03 X10*3/uL (0.00-0.03); Imm Gran Pct Auto 0.4 % (0.0-0.4); Lymphocytes Percent Auto 30.2 % (20-40); Mean Corpuscular HGB Conc 33.1 g/dl (31.0-35.0); Mean Corpuscular Hemoglobin 28.3 pg (27.0-33.0); Mean Corpuscular Volume 85.5 fL (80.0-98.0); Mean Platelet Volume 8.7 fL (9.4-12.3); Monocytes Absolute Auto 0.6 X10*3/uL (0.1-1.2); Monocytes Percent Auto 9.5 % (2-11); Neutrophils Absolute Auto 3.9 x10*3/uL (2.0-8.3); Platelet Count 287 X10*3/uL (160-400); Red Cell Distribution Width 14.3 % (11.0-16.0); White Blood Count 6.7 X10*3/uL (4.8-10.8)
--- NOTE | 2023-04-04 03:43 | PC.NURSE ---
Patient BIBA from home to be evaluated for throbbing headache after falling backwards on the stairway three days ago, + head strike. Patient denies nausea/vomiting/double vision at present. Patient reports tender area to right head, no lumps, lesions, hematomas noted. Patient's BP 200/110 when EMS arrived to patient's home. BP decreased to 160/80 after deep breathing with EMS. Patient placed on air sampling and monitoring, NSR. P 78. BP 156/87. 20 G IV line established in R AC. Labs drawn per MD orders, specimen sent to lab for processing. Call ann paced within patient's reach.
[2023-04-04 03:52] LABS: Alanine Aminotransferase 20 U/L (0-31); Albumin Level 4.3 g/dL (3.5-5.0); Alkaline Phosphatase 63 U/L (39-117); Anion Gap 14 (12-20); Aspartate Amino Transferase 32 U/L (5-31); Bilirubin Total 0.3 mg/dL (0.0-1.0); Blood Urea Nitrogen 26 mg/dL (9-16); Calcium 8.9 mg/dL (8.4-10.2); Carbon Dioxide 26 mmol/L (22-29); Chloride 103 mmol/L (96-108); Creatinine Clr Calc Pharmacy 47.9; Estimated Glomerular Filt Rate 50; Glucose Random 108 mg/dL (60-115); Potassium 4.7 mmol/L (3.3-5.1); Sodium 138 mmol/L (135-145)
[2023-04-04] MEDS: Acetaminophen 325 MG TABLET 650 MG PO (04:18)
[2023-04-04] MEDS: LORazepam 1 MG TABLET PO (04:41)
[2023-04-04 04:57] VITALS: BP 134/69; PULSE 72; RESP 14; O2SAT 100
== END 2023-04-04 05:29 | disposition home or self-care (01) ==
PROVIDERS: Emergency Provider Emergency Medicine
DX: R51.9 Headache, unspecified (principal); Z91.81 History of falling; F41.9 Anxiety disorder, unspecified; I10 Essential (primary) hypertension; Z79.899 Other long term (current) drug therapy
CPT/HCPCS: 36415; 70450; 72125; 80053; 85025; 99284

== ENCOUNTER 2023-04-08 09:06 | Outpatient (REF) | payer OTHER, SELFPAY ==
--- NOTE | ~2023-04-08 | XR_ITS ---
EXAMINATION: Left wrist x-ray CLINICAL INFORMATION: Fall 2 weeks ago COMPARISON: None. TECHNIQUE: 4 views of the left wrist FINDINGS: Bone alignment is normal. No acute fracture or dislocation. Arthritis at the first CORRECTION joint, trapezoid trapezium scaphoid joints and distal radial ulnar joint with joint space narrowing and osteophyte formation. Normal soft tissues. XR/XR wrist LT w scaphoid IMPRESSION: Arthritis. No fracture or dislocation.
== END 2023-04-08 09:07 | disposition home or self-care (01) ==
LOC: HO.HHCX 09:06
PROVIDERS: Visit Provider Emergency Medicine
DX: M25.532 Pain in left wrist (principal)
CPT/HCPCS: 73110

== ENCOUNTER 2023-04-14 01:50 | Emergency (ER) | payer OTHER, SELFPAY ==
[2023-04-14 01:57] VITALS: BP 190/110; PULSE 122; O2SAT 98
[2023-04-14 02:17] VITALS: BP 138/76; PULSE 82; RESP 20; TEMP 36.9; O2SAT 99; BMI 25.1
[2023-04-14 05:32] VITALS: BP 150/75; PULSE 83; RESP 20; O2SAT 98
[2023-04-14 05:41] VITALS: BP 156/71; PULSE 82; RESP 18; TEMP 36.8; O2SAT 99
--- NOTE | 2023-04-14 06:57 | ED_ITS ---
HPI - Anxiety General Chief Complaint: Anxiety Stated Complaint: anxiety Time Seen by Provider: 04/14/23 06:32 Source: patient, RN notes reviewed and old records reviewed Mode of arrival: ambulatory History of Present Illness HPI narrative: 77-year-old female with a past medical history of anxiety, arthritis, dementia, HTN, PACs, SVT, vertigo, chronic ear pain, presenting to the ED complaining of anxiety x few hours, states cannot refill her medications until tomorrow, and has been in [place] with her sister and left her medications there. Also reports chronic left ear pain, unchanged. Denies fever/chills, sore throat, CP/SOB Related Data Home Medications Medication Instructions Recorded Confirmed alprazolam 0.5 mg tablet 0.5 mg PO TID PRN Anxiety 08/09/20 02/06/23 aripiprazole 2 mg tablet 2 mg PO BEDTIME 08/09/20 02/06/23 cholecalciferol (vitamin D3) 25 25 mcg PO BID 08/09/20 02/06/23 mcg (1,000 unit) tablet hydroxyzine HCl 50 mg tablet 50 mg PO TID PRN Anxiety 08/09/20 02/06/23 linaclotide 145 mcg capsule 145 mcg PO DAILY 08/09/20 02/06/23 mirtazapine 45 mg tablet 45 mg PO BEDTIME 08/09/20 02/06/23 multivitamin 1 cap PO DAILY 08/09/20 02/06/23 omeprazole 20 mg tablet,delayed 20 mg PO DAILY 08/09/20 02/06/23 release sertraline 50 mg tablet 50 mg PO BEDTIME 08/09/20 02/06/23 Previous Rx's Medication Instructions Recorded escitalopram oxalate 10 mg tablet 10 mg PO DAILY #30 tabs 09/06/20 acetaminophen 325 mg capsule 325 mg PO QID PRN fever or pain 09/16/20 #30 caps aspirin 81 mg tablet,delayed 81 mg PO BEDTIME #90 tabs 09/28/20 release metoprolol succinate 50 mg 50 mg PO DAILY #90 tabs 09/28/20 tablet,extended release 24 hr menthol 0.44 %-zinc oxide 20.6 % 1 appl topical QID PRN skin 12/13/20 topical ointment (Calmoseptine) irritation #113 grams magnesium citrate 150 ml PO DAILY PRN constipation 12/14/20 #296 mL diphenhydramine HCl 25 mg capsule 25 mg PO BEDTIME insomnia #7 caps 12/25/20 (Benadryl) melatonin 10 mg tablet,extended 10 mg PO .nightly #5 tabs 01/07/21 release cefdinir 300 mg capsule 300 mg PO BID Otitis media 10 days 04/14/21 #20 caps ondansetron HCl 4 mg tablet 4 mg PO Q8H PRN nausea and 04/14/21 (Zofran) vomiting #14 tabs metoprolol succinate 50 mg 50 mg PO DAILY #14 tabs 05/22/21 tablet,extended release 24 hr ciprofloxacin 0.3 %-dexamethasone 4 drp otic (ears) BID 7 days 05/26/21 0.1 % ear drops,suspension (Ciprodex) polyethylene glycol 3350 17 17 g PO DAILY PRN constipation 07/31/21 gram/dose oral powder (Miralax) #238 grams hydrocortisone acetate 25 mg 25 mg SD BID #12 ea 08/01/21 rectal suppository (Anucort-HC) cefuroxime axetil 500 mg tablet 500 mg PO BID 7 days #14 tabs 09/01/21 meclizine 25 mg tablet 25 mg PO TID PRN dizziness #10 tabs 09/01/21 zolpidem 5 mg tablet (Ambien) 5 mg PO BEDTIME PRN sleep #2 tabs 10/29/21 zolpidem 5 mg tablet (Ambien) 5 mg PO BEDTIME PRN sleep #2 tabs 10/29/21 lisinopril 40 mg tablet 40 mg PO QPM #90 tabs 06/06/22 levofloxacin 500 mg tablet 500 mg PO DAILY 7 days #7 tabs 07/23/22 levofloxacin 500 mg tablet 500 mg PO DAILY #6 tabs 08/25/22 ofloxacin 0.3 % ear drops 10 drp otic (ears) DAILY 7 days #5 08/25/22 mL hydrocortisone 2.5 % topical cream 1 appl SD BEDTIME PRN hemorrhoids 09/20/22 with perineal applicator #30 grams docusate sodium 100 mg capsule 100 mg PO BID PRN Constipation #14 12/06/22 (Colace) caps phenylephrine 0.25 %-mineral oil 1 appl SD BID PRN hemorrhoids #56 12/06/22 14 %-petrolatm 74.9 % rectal grams ointment (Hemorrhoidal(phenyleph-min oil-petrolat)) polyethylene glycol 3350 17 17 g PO BID #119 grams 12/06/22 gram/dose oral powder (Miralax) cefuroxime axetil 500 mg tablet 500 mg PO BID 10 days #20 tabs 12/16/22 alprazolam 0.25 mg tablet 0.25 mg PO QID #7 tabs 01/04/23 ofloxacin 0.3 % ear drops 5 drp otic (ear) left BID 7 days 01/06/23 #5 mL alprazolam 0.25 mg tablet 0.25 mg PO TID PRN anxiety #7 tabs 01/11/23 alprazolam 0.25 mg tablet 0.25 mg PO TID PRN anxiety #3 tabs 02/02/23 Allergies Allergy/AdvReac Type Severity Reaction Status Date / Time penicillin G [Penicillin G] Allergy Severe ITCHY/RASH Verified 03/17/23 04:37 Sulfa (Sulfonamide Allergy Severe ITCHY,RASH, Verified 03/17/23 04:37 Antibiotics) rash [Sulfa (Sulfonamides)] trimethoprim [From Bactrim] Allergy Severe HIVES Verified 03/17/23 04:37 penicillin V Allergy Unknown rash Verified 03/17/23 04:37 sulfacetamide Allergy Unknown unknown Verified 03/17/23 04:37 [From Sulfacet-R] sulfur [From Sulfacet-R] Allergy Unknown unknown Verified 03/17/23 04:37 Review of Systems Review of Systems: Constitutional: No Fever, No Chills ENT/Mouth: + Ear Pain, No Nasal Congestion, No Sinus Pain, No Hoarseness, No sore throat, No Rhinorrhea Cardiovascular: No Chest Pain, No SOB Respiratory: No Cough, No Sputum Gastrointestinal: No Nausea, No Vomiting, No Abdominal pain Musculoskeletal: No joint pain, No Myalgias Skin: No Skin Lesions, No rash Neuro: No Weakness, No Numbness, No Paresthesias Psych: +Anxiety/Panic, No Depression, No SI/HI/AH/VH, No Social Issues Yes all other systems are reviewed and are negative Constitutional: Constitutional: Reports as per [facility] Past Medical History Attestation statement: The following information was validated with the patient. Source: old records reviewed Medical History Anxiety Arthritis Bleeding hemorrhoids Chronic constipation Dementia Essential hypertension High blood pressure PAC (premature atrial contraction) PVC (premature ventricular contraction) SVT (supraventricular tachycardia) Vertigo Surgical History No pertinent past surgical history Social History Social History Alcohol intake: never Patient Tobacco Use Status: Never used Tobacco Advance Directives: No Advance Directives Information Provided: Yes Physical Exam Vital Signs: Vital Signs: Last Vital Signs Temp 98.2 F 04/14/23 05:41 Pulse 82 04/14/23 05:41 Resp 18 04/14/23 05:41 BP 156/71 H 04/14/23 05:41 Pulse Ox 99 04/14/23 05:41 O2 Del Method Room Air 04/14/23 05:41 BMI result Body Mass Index 25.1 Const: General: cooperative, healthy appearing, no acute distress and anxious Orientation/consciousness: patient oriented x3 Limitations: no limitations HEENT: Head: Yes normal to inspection and Yes atraumatic Ears: hearing grossly normal bilaterally, external ears normal, EAC's normal and mastoids normal General nose exam: Normal external nose present Face and sinus: Yes normal facial exam Mouth: Normal oral and palatal mucosa present Throat: Yes posterior oropharynx normal, Yes tonsils normal, Yes uvula midline, No tonsils absent and No uvula laterally displaced Eyes: General: appearance normal, both eyes and all related structures EOM: EOMs intact bilaterally Neck: Neck: Yes normal visual inspection and Yes no meningeal signs Resp: Effort & Inspection: normal respiratory effort and no respiratory distress Cardio: Rate: regular rate Heart sounds: S1 normal heart sound present and S2 normal heart sound present Skin: Rashes: no rashes Wounds: no wounds Neuro: General: patient oriented x3, tone normal and no meningeal signs Gait exam (Neuro): Normal gait present Extrem: General: Yes normal to inspection Psych: Affect: Anxious affect present Medical Decision Making Medical Decision Making MDM Narrative: 77-year-old female with a past medical history of anxiety, arthritis, dementia, HTN, PACs, SVT, vertigo, chronic ear pain, presenting to the ED complaining of anxiety x few hours, states cannot refill her medications until tomorrow. On exam vital signs stable, appears anxious, pacing around room, TMs bilaterally WNL, mastoids WNL. Per [facility] patient refilled 7 day supply of Alprazolam on 04/08/23. Low suspicion for acute otitis, chronic otitis externa or mastoiditis Discussed with patient she needs to follow-up with her PCP/Psychiatry for further medication refills Results discussed with patient including worrisome signs and symptoms and strict return precautions, and when to return to the emergency department. They verbalized understanding and feel safe for discharge at this time. Differential Diagnosis Differential Diagnoses: The differential diagnosis associated with the presentation includes As above External Record Review External record reviewed: Inpatient record, Office record, Outpatient record, Prior outpatient labs, Prior outpatient radiology, Primary care record and Outside ED record Tests considered The following testing was considered but not selected: As above Discharge Plan Discharge Clinical Impression: Generalized anxiety disorder with panic attacks, Chronic ear pain Patient Disposition: Home, Self-Care Instructions: Earache (ED), Anxiety (ED) Additional Instructions: Please follow-up with your doctor You should also follow-up with dermatology and ENT If symptoms persist or worsen return to the ED Por favor, seguimiento con clark m?dico Tambi?n debe hacer un seguimiento con dermatolog?a y otorrinolaringolog?a. Si los s?ntomas persisten o empeoran, regrese al servicio de urgencias. Prescriptions: No Action escitalopram oxalate 10 mg tablet 10 mg PO DAILY Qty: 30 1RF metoprolol succinate 50 mg tablet extended release 24 hr 50 mg PO DAILY Qty: 90 2RF aspirin 81 mg tablet,delayed release (DR/EC) 81 mg PO BEDTIME Qty: 90 2RF polyethylene glycol 3350 [Miralax] 17 gram/dose powder 17 g PO DAILY PRN (Reason: constipation) Qty: 238 0RF lisinopril 40 mg tablet 40 mg PO QPM Qty: 90 3RF acetaminophen 325 mg capsule 325 mg PO QID PRN (Reason: fever or pain) Qty: 30 0RF melatonin 10 mg tablet extended release 10 mg PO .nightly Qty: 5 0RF metoprolol succinate 50 mg tablet extended release 24 hr 50 mg PO DAILY Qty: 14 0RF ciprofloxacin-dexamethasone [Ciprodex] 0.3-0.1 % drops,suspension 4 drp otic (ears) BID 7 Days 0RF alprazolam 0.5 mg Tablet 0.5 mg PO TID PRN (Reason: Anxiety) hydroxyzine HCl 50 mg Tablet 50 mg PO TID PRN (Reason: Anxiety) mirtazapine 45 mg Tablet 45 mg PO BEDTIME multivitamin Capsule 1 cap PO DAILY sertraline 50 mg Tablet 50 mg PO BEDTIME aripiprazole 2 mg Tablet 2 mg PO BEDTIME cholecalciferol (vitamin D3) 25 mcg (1,000 unit) Tablet 25 mcg PO BID omeprazole 20 mg Tablet,Delayed Release (Dr/Ec) 20 mg PO DAILY linaclotide 145 mcg Capsule 145 mcg PO DAILY diphenhydramine HCl [Benadryl] 25 mg capsule 25 mg PO BEDTIME Qty: 7 0RF cefdinir 300 mg capsule 300 mg PO BID 10 Days Qty: 20 0RF ondansetron HCl [Zofran] 4 mg tablet 4 mg PO Q8H PRN (Reason: nausea and vomiting) Qty: 14 0RF cefuroxime axetil 500 mg tablet 500 mg PO BID 7 Days Qty: 14 0RF meclizine 25 mg tablet 25 mg PO TID PRN (Reason: dizziness) Qty: 10 0RF levofloxacin 500 mg tablet 500 mg PO DAILY 7 Days Qty: 7 0RF cefuroxime axetil 500 mg tablet 500 mg PO BID 10 Days Qty: 20 0RF alprazolam 0.25 mg tablet 0.25 mg PO QID Qty: 7 0RF levofloxacin 500 mg tablet 500 mg PO DAILY Qty: 6 0RF Rx Instructions: start on 08/26 ofloxacin 0.3 % drops 10 drp otic (ears) DAILY 7 Days Qty: 5 0RF Rx Instructions: can substitute eye drops if necessary hydrocortisone 2.5 % cream with perineal applicator 1 appl SD BEDTIME PRN (Reason: hemorrhoids) Qty: 30 0RF Hemorrhoidal(PE-min oil-emma) 0.25-14-74.9 % ointment 1 appl SD BID PRN (Reason: hemorrhoids) Qty: 56 0RF polyethylene glycol 3350 [Miralax] 17 gram/dose powder 17 g PO BID Qty: 119 0RF docusate sodium [Colace] 100 mg capsule 100 mg PO BID PRN (Reason: Constipation) Qty: 14 0RF ofloxacin 0.3 % drops 5 drp otic (ear) left BID 7 Days Qty: 5 0RF alprazolam 0.25 mg tablet 0.25 mg PO TID PRN (Reason: anxiety) Qty: 7 0RF alprazolam 0.25 mg tablet 0.25 mg PO TID PRN (Reason: anxiety) Qty: 3 0RF Calmoseptine 0.44-20.6 % ointment 1 appl topical QID PRN (Reason: skin irritation) Qty: 113 0RF magnesium citrate Solution 150 ml PO DAILY PRN (Reason: constipation) Qty: 296 0RF Rx Instructions: take only when needed for constipation hydrocortisone acetate [Anucort-HC] 25 mg suppository 25 mg SD BID Qty: 12 3RF zolpidem [Ambien] 5 mg tablet 5 mg PO BEDTIME PRN (Reason: sleep) Qty: 2 0RF zolpidem [Ambien] 5 mg tablet 5 mg PO BEDTIME PRN (Reason: sleep) Qty: 2 0RF Referrals: Kody Li [Physician] - Physician,Unknown J [Primary Care Provider] - Print Language: Wolof
[2023-04-14] MEDS: ALPRAZolam 0.25 MG TABLET PO (07:08)
[2023-04-14] MEDS: Acetaminophen 325 MG TABLET 650 MG PO (07:08)
== END 2023-04-14 07:11 | disposition home or self-care (01) ==
PROVIDERS: Emergency Provider Emergency Medicine
DX: F41.1 Generalized anxiety disorder (principal); G89.29 Other chronic pain; H92.02 Otalgia, left ear; I10 Essential (primary) hypertension; Z79.899 Other long term (current) drug therapy; Z79.82 Long term (current) use of aspirin
CPT/HCPCS: 99283

== ENCOUNTER 2023-04-14 22:45 | Emergency (ER) | payer OTHER, SELFPAY ==
[2023-04-14 23:04] VITALS: BP 159/86; BP 170/100; PULSE 77; PULSE 82; RESP 18; TEMP 37.3; O2SAT 100; BMI 25.1
[2023-04-15 02:24] VITALS: BP 171/81; PULSE 74; RESP 16; TEMP 37.2; O2SAT 98
[2023-04-15 03:09] VITALS: BP 152/79
[2023-04-15] MEDS: Acetaminophen 325 MG TABLET 650 MG PO (03:30)
--- NOTE | 2023-04-15 03:40 | PC.NURSE ---
Pt reports headache, 03/19. MD notified. Medicated as ordered.
--- NOTE | 2023-04-15 03:57 | ED.GENADULT ---
HPI - General Adult General Chief complaint: General Medical Stated complaint: Anxiety Time Seen by Provider: 04/15/23 03:29 History of Present Illness HPI narrative: Patient is a 77-year-old female with a long history of anxiety. Presents today with the same. Been seen in the emergency department multiple times. Patient claims that she feels the same anxiety is prior. This time however patient states that she has a prescription waiting for her at the [facility] for the morning. Just wish to have 1 Ativan because she feels very anxious. No suicidal homicidal ideation. Patient in no distress. Related Data Home Medications Medication Instructions Recorded Confirmed alprazolam 0.5 mg tablet 0.5 mg PO TID PRN Anxiety 08/09/20 02/06/23 aripiprazole 2 mg tablet 2 mg PO BEDTIME 08/09/20 02/06/23 cholecalciferol (vitamin D3) 25 25 mcg PO BID 08/09/20 02/06/23 mcg (1,000 unit) tablet hydroxyzine HCl 50 mg tablet 50 mg PO TID PRN Anxiety 08/09/20 02/06/23 linaclotide 145 mcg capsule 145 mcg PO DAILY 08/09/20 02/06/23 mirtazapine 45 mg tablet 45 mg PO BEDTIME 08/09/20 02/06/23 multivitamin 1 cap PO DAILY 08/09/20 02/06/23 omeprazole 20 mg tablet,delayed 20 mg PO DAILY 08/09/20 02/06/23 release sertraline 50 mg tablet 50 mg PO BEDTIME 08/09/20 02/06/23 Previous Rx's Medication Instructions Recorded escitalopram oxalate 10 mg tablet 10 mg PO DAILY #30 tabs 09/06/20 acetaminophen 325 mg capsule 325 mg PO QID PRN fever or pain 09/16/20 #30 caps aspirin 81 mg tablet,delayed 81 mg PO BEDTIME #90 tabs 09/28/20 release metoprolol succinate 50 mg 50 mg PO DAILY #90 tabs 09/28/20 tablet,extended release 24 hr menthol 0.44 %-zinc oxide 20.6 % 1 appl topical QID PRN skin 12/13/20 topical ointment (Calmoseptine) irritation #113 grams magnesium citrate 150 ml PO DAILY PRN constipation 12/14/20 #296 mL diphenhydramine HCl 25 mg capsule 25 mg PO BEDTIME insomnia #7 caps 12/25/20 (Benadryl) melatonin 10 mg tablet,extended 10 mg PO .nightly #5 tabs 01/07/21 release cefdinir 300 mg capsule 300 mg PO BID Otitis media 10 days 04/14/21 #20 caps ondansetron HCl 4 mg tablet 4 mg PO Q8H PRN nausea and 04/14/21 (Zofran) vomiting #14 tabs metoprolol succinate 50 mg 50 mg PO DAILY #14 tabs 05/22/21 tablet,extended release 24 hr ciprofloxacin 0.3 %-dexamethasone 4 drp otic (ears) BID 7 days 05/26/21 0.1 % ear drops,suspension (Ciprodex) polyethylene glycol 3350 17 17 g PO DAILY PRN constipation 07/31/21 gram/dose oral powder (Miralax) #238 grams hydrocortisone acetate 25 mg 25 mg MD BID #12 ea 08/01/21 rectal suppository (Anucort-HC) cefuroxime axetil 500 mg tablet 500 mg PO BID 7 days #14 tabs 09/01/21 meclizine 25 mg tablet 25 mg PO TID PRN dizziness #10 tabs 09/01/21 zolpidem 5 mg tablet (Ambien) 5 mg PO BEDTIME PRN sleep #2 tabs 10/29/21 zolpidem 5 mg tablet (Ambien) 5 mg PO BEDTIME PRN sleep #2 tabs 10/29/21 lisinopril 40 mg tablet 40 mg PO QPM #90 tabs 06/06/22 levofloxacin 500 mg tablet 500 mg PO DAILY 7 days #7 tabs 07/23/22 levofloxacin 500 mg tablet 500 mg PO DAILY #6 tabs 08/25/22 ofloxacin 0.3 % ear drops 10 drp otic (ears) DAILY 7 days #5 08/25/22 mL hydrocortisone 2.5 % topical cream 1 appl MD BEDTIME PRN hemorrhoids 09/20/22 with perineal applicator #30 grams docusate sodium 100 mg capsule 100 mg PO BID PRN Constipation #14 12/06/22 (Colace) caps phenylephrine 0.25 %-mineral oil 1 appl MD BID PRN hemorrhoids #56 12/06/22 14 %-petrolatm 74.9 % rectal grams ointment (Hemorrhoidal(phenyleph-min oil-petrolat)) polyethylene glycol 3350 17 17 g PO BID #119 grams 12/06/22 gram/dose oral powder (Miralax) cefuroxime axetil 500 mg tablet 500 mg PO BID 10 days #20 tabs 12/16/22 alprazolam 0.25 mg tablet 0.25 mg PO QID #7 tabs 01/04/23 ofloxacin 0.3 % ear drops 5 drp otic (ear) left BID 7 days 01/06/23 #5 mL alprazolam 0.25 mg tablet 0.25 mg PO TID PRN anxiety #7 tabs 01/11/23 alprazolam 0.25 mg tablet 0.25 mg PO TID PRN anxiety #3 tabs 02/02/23 Allergies Allergy/AdvReac Type Severity Reaction Status Date / Time penicillin G [Penicillin G] Allergy Severe ITCHY/RASH Verified 03/17/23 04:37 Sulfa (Sulfonamide Allergy Severe ITCHY,RASH, Verified 03/17/23 04:37 Antibiotics) rash [Sulfa (Sulfonamides)] trimethoprim [From Bactrim] Allergy Severe HIVES Verified 03/17/23 04:37 penicillin V Allergy Unknown rash Verified 03/17/23 04:37 sulfacetamide Allergy Unknown unknown Verified 03/17/23 04:37 [From Sulfacet-R] sulfur [From Sulfacet-R] Allergy Unknown unknown Verified 03/17/23 04:37 Review of Systems Review of Systems: Positive anxiety PMFSH Past Medical History Attestation statement: The following information was validated with the patient. Medical History Anxiety Arthritis Bleeding hemorrhoids Chronic constipation Dementia Essential hypertension High blood pressure PAC (premature atrial contraction) PVC (premature ventricular contraction) SVT (supraventricular tachycardia) Vertigo Surgical History No pertinent past surgical history Social History Social History Alcohol intake: never Patient Tobacco Use Status: Never used Tobacco Smoked in Last 30 Days: No Use of substances other than those prescribed or required for medical reasons: No Advance Directives: No Advance Directives Information Provided: Yes Physical Exam ED Vital Signs: Vital Signs - 24 hr 04/14/23 23:04 04/15/23 02:24 04/15/23 03:09 Temperature 99.1 F 98.9 F Pulse Rate 77 74 Respiratory Rate 18 16 Blood Pressure 159/86 H 171/81 H 152/79 H Pulse Oximetry 100 98 Oxygen Delivery Method Room Air Room Air BMI result Body Mass Index 25.1 Appearance: Alert. Oriented X3. No acute distress. Eyes: Pupils equal, round and reactive to light. ENT: Pharynx normal. Neck: Normal inspection. Neck supple. No lymph nodes noted. No crepitus CVS: Normal heart rate and rhythm. Pulses normal. Normal S1 and S2 Respiratory: No respiratory distress. Breath sounds normal. No Wheezing. No rales Abdomen: Soft and nontender. No rigidity. No distention. good BS x4 Skin: Skin warm and dry. Normal skin color. Normal skin turgor. Extremities: No lower extremity edema. Neurovascular intact to all extremities. No Lacerations. No Rash Neuro: Oriented X 3. No motor deficit. No sensory deficit. Moving all extermities. No slurred speech Medications Administered Discontinued Medications Generic Name Dose Route Start Last Admin Trade Name Freq PRN Reason Stop Dose Admin Acetaminophen 650 mg 04/15/23 03:21 04/15/23 03:30 Acetaminophen 325 Mg Tablet PO 04/15/23 03:22 650 mg ONCE ONE Administration Medical Decision Making Medical Decision Making [facility] Narrative: Discussed with patient at length this is the last time we can give her Ativan. She needs to follow up with her primary physician. Patient states understanding. Symptoms most likely consistent with anxiety. History of the same patient been to the emergency department multiple times for similar issues. She has no chest pain or diaphoresis. She is speaking complete sentences. This provider observed her to be sleeping. She is in no acute distress. She is currently in stable condition. Lab Data [facility] Lab Attestation statement: I reviewed the patient's lab results. Chronic Conditions Benzo dependency Anxiety Discharge Plan Discharge Clinical Impression: Generalized anxiety disorder with panic attacks Patient Disposition: Home, Self-Care Instructions: Anxiety (ED) Prescriptions: No Action escitalopram oxalate 10 mg tablet 10 mg PO DAILY Qty: 30 1RF metoprolol succinate 50 mg tablet extended release 24 hr 50 mg PO DAILY Qty: 90 2RF aspirin 81 mg tablet,delayed release (DR/EC) 81 mg PO BEDTIME Qty: 90 2RF polyethylene glycol 3350 [Miralax] 17 gram/dose powder 17 g PO DAILY PRN (Reason: constipation) Qty: 238 0RF lisinopril 40 mg tablet 40 mg PO QPM Qty: 90 3RF acetaminophen 325 mg capsule 325 mg PO QID PRN (Reason: fever or pain) Qty: 30 0RF melatonin 10 mg tablet extended release 10 mg PO .nightly Qty: 5 0RF metoprolol succinate 50 mg tablet extended release 24 hr 50 mg PO DAILY Qty: 14 0RF ciprofloxacin-dexamethasone [Ciprodex] 0.3-0.1 % drops,suspension 4 drp otic (ears) BID 7 Days 0RF alprazolam 0.5 mg Tablet 0.5 mg PO TID PRN (Reason: Anxiety) hydroxyzine HCl 50 mg Tablet 50 mg PO TID PRN (Reason: Anxiety) mirtazapine 45 mg Tablet 45 mg PO BEDTIME multivitamin Capsule 1 cap PO DAILY sertraline 50 mg Tablet 50 mg PO BEDTIME aripiprazole 2 mg Tablet 2 mg PO BEDTIME cholecalciferol (vitamin D3) 25 mcg (1,000 unit) Tablet 25 mcg PO BID omeprazole 20 mg Tablet,Delayed Release (Dr/Ec) 20 mg PO DAILY linaclotide 145 mcg Capsule 145 mcg PO DAILY diphenhydramine HCl [Benadryl] 25 mg capsule 25 mg PO BEDTIME Qty: 7 0RF cefdinir 300 mg capsule 300 mg PO BID 10 Days Qty: 20 0RF ondansetron HCl [Zofran] 4 mg tablet 4 mg PO Q8H PRN (Reason: nausea and vomiting) Qty: 14 0RF cefuroxime axetil 500 mg tablet 500 mg PO BID 7 Days Qty: 14 0RF meclizine 25 mg tablet 25 mg PO TID PRN (Reason: dizziness) Qty: 10 0RF levofloxacin 500 mg tablet 500 mg PO DAILY 7 Days Qty: 7 0RF cefuroxime axetil 500 mg tablet 500 mg PO BID 10 Days Qty: 20 0RF alprazolam 0.25 mg tablet 0.25 mg PO QID Qty: 7 0RF levofloxacin 500 mg tablet 500 mg PO DAILY Qty: 6 0RF Rx Instructions: start on 08/26 ofloxacin 0.3 % drops 10 drp otic (ears) DAILY 7 Days Qty: 5 0RF Rx Instructions: can substitute eye drops if necessary hydrocortisone 2.5 % cream with perineal applicator 1 appl MD BEDTIME PRN (Reason: hemorrhoids) Qty: 30 0RF Hemorrhoidal(PE-min oil-emma) 0.25-14-74.9 % ointment 1 appl MD BID PRN (Reason: hemorrhoids) Qty: 56 0RF polyethylene glycol 3350 [Miralax] 17 gram/dose powder 17 g PO BID Qty: 119 0RF docusate sodium [Colace] 100 mg capsule 100 mg PO BID PRN (Reason: Constipation) Qty: 14 0RF ofloxacin 0.3 % drops 5 drp otic (ear) left BID 7 Days Qty: 5 0RF alprazolam 0.25 mg tablet 0.25 mg PO TID PRN (Reason: anxiety) Qty: 7 0RF alprazolam 0.25 mg tablet 0.25 mg PO TID PRN (Reason: anxiety) Qty: 3 0RF Calmoseptine 0.44-20.6 % ointment 1 appl topical QID PRN (Reason: skin irritation) Qty: 113 0RF magnesium citrate Solution 150 ml PO DAILY PRN (Reason: constipation) Qty: 296 0RF Rx Instructions: take only when needed for constipation hydrocortisone acetate [Anucort-HC] 25 mg suppository 25 mg MD BID Qty: 12 3RF zolpidem [Ambien] 5 mg tablet 5 mg PO BEDTIME PRN (Reason: sleep) Qty: 2 0RF zolpidem [Ambien] 5 mg tablet 5 mg PO BEDTIME PRN (Reason: sleep) Qty: 2 0RF Print Language: Luxembourgish
[2023-04-15 04:06] VITALS: BP 146/83; PULSE 75; RESP 12; O2SAT 97
[2023-04-15] MEDS: LORazepam 1 MG TABLET PO (04:09)
== END 2023-04-15 04:39 | disposition home or self-care (01) ==
PROVIDERS: Emergency Provider Emergency Medicine Emergency Medical Services
DX: F41.1 Generalized anxiety disorder (principal); F41.0 Panic disorder [episodic paroxysmal anxiety]
CPT/HCPCS: 99283; 99284

== ENCOUNTER 2023-04-19 01:21 | Emergency (ER) | payer OTHER, SELFPAY ==
[2023-04-19 01:26] VITALS: BP 170/100; BP 170/87; PULSE 74; PULSE 79; RESP 18; TEMP 36.1; O2SAT 100; O2SAT 98; BMI 24.2
[2023-04-19 02:19] VITALS: BP 168/77; PULSE 72; RESP 17; TEMP 37.1; O2SAT 98
--- NOTE | 2023-04-19 03:20 | ED.GENADULT ---
HPI - General Adult General Chief complaint: General Medical Stated complaint: hypertension Time Seen by Provider: 04/19/23 03:17 Source: patient Mode of arrival: ambulatory Limitations: no limitations History of Present Illness HPI narrative: Patient comes emergency room complaining that she is very anxious. Patient has not had her benzodiazepines today. 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 Patient's medications are locked, patient requesting 1 dose of Ativan, normal schedule will start this morning. Patient also complaining of mild headache. Denies chest pain or shortness of breath, no falls. Related Data Home Medications Medication Instructions Recorded Confirmed alprazolam 0.5 mg tablet 0.5 mg PO TID PRN Anxiety 08/09/20 02/06/23 aripiprazole 2 mg tablet 2 mg PO BEDTIME 08/09/20 02/06/23 cholecalciferol (vitamin D3) 25 25 mcg PO BID 08/09/20 02/06/23 mcg (1,000 unit) tablet hydroxyzine HCl 50 mg tablet 50 mg PO TID PRN Anxiety 08/09/20 02/06/23 linaclotide 145 mcg capsule 145 mcg PO DAILY 08/09/20 02/06/23 mirtazapine 45 mg tablet 45 mg PO BEDTIME 08/09/20 02/06/23 multivitamin 1 cap PO DAILY 08/09/20 02/06/23 omeprazole 20 mg tablet,delayed 20 mg PO DAILY 08/09/20 02/06/23 release sertraline 50 mg tablet 50 mg PO BEDTIME 08/09/20 02/06/23 Previous Rx's Medication Instructions Recorded escitalopram oxalate 10 mg tablet 10 mg PO DAILY #30 tabs 09/06/20 acetaminophen 325 mg capsule 325 mg PO QID PRN fever or pain 09/16/20 #30 caps aspirin 81 mg tablet,delayed 81 mg PO BEDTIME #90 tabs 09/28/20 release metoprolol succinate 50 mg 50 mg PO DAILY #90 tabs 09/28/20 tablet,extended release 24 hr menthol 0.44 %-zinc oxide 20.6 % 1 appl topical QID PRN skin 12/13/20 topical ointment (Calmoseptine) irritation #113 grams magnesium citrate 150 ml PO DAILY PRN constipation 12/14/20 #296 mL diphenhydramine HCl 25 mg capsule 25 mg PO BEDTIME insomnia #7 caps 12/25/20 (Benadryl) melatonin 10 mg tablet,extended 10 mg PO .nightly #5 tabs 01/07/21 release cefdinir 300 mg capsule 300 mg PO BID Otitis media 10 days 04/14/21 #20 caps ondansetron HCl 4 mg tablet 4 mg PO Q8H PRN nausea and 04/14/21 (Zofran) vomiting #14 tabs metoprolol succinate 50 mg 50 mg PO DAILY #14 tabs 05/22/21 tablet,extended release 24 hr ciprofloxacin 0.3 %-dexamethasone 4 drp otic (ears) BID 7 days 05/26/21 0.1 % ear drops,suspension (Ciprodex) polyethylene glycol 3350 17 17 g PO DAILY PRN constipation 07/31/21 gram/dose oral powder (Miralax) #238 grams hydrocortisone acetate 25 mg 25 mg MI BID #12 ea 08/01/21 rectal suppository (Anucort-HC) cefuroxime axetil 500 mg tablet 500 mg PO BID 7 days #14 tabs 09/01/21 meclizine 25 mg tablet 25 mg PO TID PRN dizziness #10 tabs 09/01/21 zolpidem 5 mg tablet (Ambien) 5 mg PO BEDTIME PRN sleep #2 tabs 10/29/21 zolpidem 5 mg tablet (Ambien) 5 mg PO BEDTIME PRN sleep #2 tabs 10/29/21 lisinopril 40 mg tablet 40 mg PO QPM #90 tabs 06/06/22 levofloxacin 500 mg tablet 500 mg PO DAILY 7 days #7 tabs 07/23/22 levofloxacin 500 mg tablet 500 mg PO DAILY #6 tabs 08/25/22 ofloxacin 0.3 % ear drops 10 drp otic (ears) DAILY 7 days #5 08/25/22 mL hydrocortisone 2.5 % topical cream 1 appl MI BEDTIME PRN hemorrhoids 09/20/22 with perineal applicator #30 grams docusate sodium 100 mg capsule 100 mg PO BID PRN Constipation #14 12/06/22 (Colace) caps phenylephrine 0.25 %-mineral oil 1 appl MI BID PRN hemorrhoids #56 12/06/22 14 %-petrolatm 74.9 % rectal grams ointment (Hemorrhoidal(phenyleph-min oil-petrolat)) polyethylene glycol 3350 17 17 g PO BID #119 grams 12/06/22 gram/dose oral powder (Miralax) cefuroxime axetil 500 mg tablet 500 mg PO BID 10 days #20 tabs 12/16/22 alprazolam 0.25 mg tablet 0.25 mg PO QID #7 tabs 01/04/23 ofloxacin 0.3 % ear drops 5 drp otic (ear) left BID 7 days 01/06/23 #5 mL alprazolam 0.25 mg tablet 0.25 mg PO TID PRN anxiety #7 tabs 01/11/23 alprazolam 0.25 mg tablet 0.25 mg PO TID PRN anxiety #3 tabs 02/02/23 Allergies Allergy/AdvReac Type Severity Reaction Status Date / Time penicillin G [Penicillin G] Allergy Severe ITCHY/RASH Verified 03/17/23 04:37 Sulfa (Sulfonamide Allergy Severe ITCHY,RASH, Verified 03/17/23 04:37 Antibiotics) rash [Sulfa (Sulfonamides)] trimethoprim [From Bactrim] Allergy Severe HIVES Verified 03/17/23 04:37 penicillin V Allergy Unknown rash Verified 03/17/23 04:37 sulfacetamide Allergy Unknown unknown Verified 03/17/23 04:37 [From Sulfacet-R] sulfur [From Sulfacet-R] Allergy Unknown unknown Verified 03/17/23 04:37 Review of Systems Review of Systems: Constitutional : No Weight loss, No Fever, No Chills, No Night Sweats, No Fatigue, No Malaise ENT/Mouth : No Hearing loss, No Ear Pain, No Nasal Congestion, No Sinus Pain, No Hoarseness, No sore throat, No Rhinorrhea, No Swallowing Difficulty Eyes: No Eye Pain, No Swelling, No Redness, No Foreign Body, No Discharge, No Vision Changes Cardiovascular : No Chest Pain, No SOB, No Dyspnea on Exertion, No Orthopnea, No Edema, No Palpitations Respiratory : No Cough, No Sputum, No Wheezing, No Smoke Exposure, No Dyspnea Gastrointestinal : No Nausea, No Vomiting, No Diarrhea, No Constipation, No abdominal Pain, No Hematochezia, No Melena Genitourinary : no irregular bleeding, No Dysuria, No Urinary Frequency, No Hematuria, No Urinary Incontinence, No Urgency, No Flank Pain, No Urinary Flow Changes, No Hesitancy Musculoskeletal : No joint pain, No Myalgias, No Joint Swelling Skin : No Skin Lesions, No rash Neuro : No Weakness, No Numbness, No Paresthesias, No Loss of Consciousness, No Dizziness complaining of mild Headache Psych : Complaining of anxiety secondary to not taking her usual benzodiazepines at home, No Depression, No SI/HI/AH/VH, No Social Issues, Heme/Lymph: No Bruising, No Bleeding,No Lymphadenopathy Endocrine : No Polyuria, No Polydipsia, No Temperature Intolerance [facility] Past Medical History Medical History Anxiety Arthritis Bleeding hemorrhoids Chronic constipation Dementia Essential hypertension High blood pressure PAC (premature atrial contraction) PVC (premature ventricular contraction) SVT (supraventricular tachycardia) Vertigo Surgical History No pertinent past surgical history Social History Social History Alcohol intake: never Patient Tobacco Use Status: Never used Tobacco Smoked in Last 30 Days: No Use of substances other than those prescribed or required for medical reasons: No Advance Directives: No Advance Directives Information Provided: Yes Physical Exam ED Vital Signs: Vital Signs - 24 hr 04/19/23 01:26 04/19/23 02:19 Temperature 97 F 98.8 F Pulse Rate 74 72 Respiratory Rate 18 17 Blood Pressure 170/87 H 168/77 H Pulse Oximetry 98 98 Oxygen Delivery Method Room Air Room Air BMI result Body Mass Index 24.2 Const Other: Appearance: Alert. Oriented X3. No acute distress. Eyes: Pupils equal, round and reactive to light. ENT: Pharynx normal. Neck: Normal inspection. Neck supple. No lymph nodes noted. No crepitus CVS: Normal heart rate and rhythm. Pulses normal. Normal S1 and S2 Respiratory: No respiratory distress. Breath sounds normal. No Wheezing. No rales Abdomen: Soft and nontender. No rigidity. No distention. Skin: Skin warm and dry. Normal skin color. Normal skin turgor. Extremities: No lower extremity edema. No Lacerations. No Rash Neuro: Oriented X 3. No motor deficit. No sensory deficit. Moving all extremities. No slurred speech. CN 2 through 12 grossly intact Psych: calm, cooperative, normal affect Medical Decision Making Medical Decision Making MDM Narrative: Patient's initial blood pressure 170/87, now in the 150s, patient overall feeling much better. -patient received 1 dose of Ativan and acetaminophen. No prescriptions. Discharge Plan Discharge Clinical Impression: Anxiety, Headache Patient Disposition: Home, Self-Care Instructions: Anxiety (ED), Acute Headache (ED) Additional Instructions: Please follow-up with your primary care physician tomorrow. If you have any worsening or new symptoms, please return to the emergency room or call 911 Prescriptions: No Action escitalopram oxalate 10 mg tablet 10 mg PO DAILY Qty: 30 1RF metoprolol succinate 50 mg tablet extended release 24 hr 50 mg PO DAILY Qty: 90 2RF aspirin 81 mg tablet,delayed release (DR/EC) 81 mg PO BEDTIME Qty: 90 2RF polyethylene glycol 3350 [Miralax] 17 gram/dose powder 17 g PO DAILY PRN (Reason: constipation) Qty: 238 0RF lisinopril 40 mg tablet 40 mg PO QPM Qty: 90 3RF acetaminophen 325 mg capsule 325 mg PO QID PRN (Reason: fever or pain) Qty: 30 0RF melatonin 10 mg tablet extended release 10 mg PO .nightly Qty: 5 0RF metoprolol succinate 50 mg tablet extended release 24 hr 50 mg PO DAILY Qty: 14 0RF ciprofloxacin-dexamethasone [Ciprodex] 0.3-0.1 % drops,suspension 4 drp otic (ears) BID 7 Days 0RF alprazolam 0.5 mg Tablet 0.5 mg PO TID PRN (Reason: Anxiety) hydroxyzine HCl 50 mg Tablet 50 mg PO TID PRN (Reason: Anxiety) mirtazapine 45 mg Tablet 45 mg PO BEDTIME multivitamin Capsule 1 cap PO DAILY sertraline 50 mg Tablet 50 mg PO BEDTIME aripiprazole 2 mg Tablet 2 mg PO BEDTIME cholecalciferol (vitamin D3) 25 mcg (1,000 unit) Tablet 25 mcg PO BID omeprazole 20 mg Tablet,Delayed Release (Dr/Ec) 20 mg PO DAILY linaclotide 145 mcg Capsule 145 mcg PO DAILY diphenhydramine HCl [Benadryl] 25 mg capsule 25 mg PO BEDTIME Qty: 7 0RF cefdinir 300 mg capsule 300 mg PO BID 10 Days Qty: 20 0RF ondansetron HCl [Zofran] 4 mg tablet 4 mg PO Q8H PRN (Reason: nausea and vomiting) Qty: 14 0RF cefuroxime axetil 500 mg tablet 500 mg PO BID 7 Days Qty: 14 0RF meclizine 25 mg tablet 25 mg PO TID PRN (Reason: dizziness) Qty: 10 0RF levofloxacin 500 mg tablet 500 mg PO DAILY 7 Days Qty: 7 0RF cefuroxime axetil 500 mg tablet 500 mg PO BID 10 Days Qty: 20 0RF alprazolam 0.25 mg tablet 0.25 mg PO QID Qty: 7 0RF levofloxacin 500 mg tablet 500 mg PO DAILY Qty: 6 0RF Rx Instructions: start on 08/26 ofloxacin 0.3 % drops 10 drp otic (ears) DAILY 7 Days Qty: 5 0RF Rx Instructions: can substitute eye drops if necessary hydrocortisone 2.5 % cream with perineal applicator 1 appl MI BEDTIME PRN (Reason: hemorrhoids) Qty: 30 0RF Hemorrhoidal(PE-min oil-emma) 0.25-14-74.9 % ointment 1 appl MI BID PRN (Reason: hemorrhoids) Qty: 56 0RF polyethylene glycol 3350 [Miralax] 17 gram/dose powder 17 g PO BID Qty: 119 0RF docusate sodium [Colace] 100 mg capsule 100 mg PO BID PRN (Reason: Constipation) Qty: 14 0RF ofloxacin 0.3 % drops 5 drp otic (ear) left BID 7 Days Qty: 5 0RF alprazolam 0.25 mg tablet 0.25 mg PO TID PRN (Reason: anxiety) Qty: 7 0RF alprazolam 0.25 mg tablet 0.25 mg PO TID PRN (Reason: anxiety) Qty: 3 0RF Calmoseptine 0.44-20.6 % ointment 1 appl topical QID PRN (Reason: skin irritation) Qty: 113 0RF magnesium citrate Solution 150 ml PO DAILY PRN (Reason: constipation) Qty: 296 0RF Rx Instructions: take only when needed for constipation hydrocortisone acetate [Anucort-HC] 25 mg suppository 25 mg MI BID Qty: 12 3RF zolpidem [Ambien] 5 mg tablet 5 mg PO BEDTIME PRN (Reason: sleep) Qty: 2 0RF zolpidem [Ambien] 5 mg tablet 5 mg PO BEDTIME PRN (Reason: sleep) Qty: 2 0RF
[2023-04-19] MEDS: LORazepam 2 MG/ML VIAL 1 MG IM (03:30)
[2023-04-19] MEDS: Acetaminophen 325 MG TABLET 975 MG PO (03:31)
--- NOTE | 2023-04-19 03:37 | PC.NURSE ---
pt tolerated po and im medications w/o any difficulties
== END 2023-04-19 03:43 | disposition home or self-care (01) ==
PROVIDERS: Emergency Provider Emergency Medicine
DX: F41.9 Anxiety disorder, unspecified (principal); R51.9 Headache, unspecified; I10 Essential (primary) hypertension; Z79.899 Other long term (current) drug therapy; Z79.82 Long term (current) use of aspirin
CPT/HCPCS: 96372; 99284; J2060

== ENCOUNTER 2023-04-19 21:53 | Emergency (ER) | payer OTHER, SELFPAY ==
[2023-04-19 21:55] VITALS: BP 164/96; PULSE 84; O2SAT 98
== END 2023-04-20 01:19 | disposition left against medical advice (07) ==
PROVIDERS: Emergency Provider Emergency Medicine
DX: R42 Dizziness and giddiness (principal); R11.0 Nausea; F41.9 Anxiety disorder, unspecified

== ENCOUNTER 2023-04-20 05:50 | Emergency (ER) | payer OTHER, SELFPAY ==
--- NOTE | 2023-04-20 05:56 | ECG_ITS ---
Test Reason : CHEST PAIN Blood Pressure : / mmHG Vent. Rate : 079 BPM Atrial Rate : 079 BPM P-R Int : 174 ms QRS Dur : 100 ms QT Int : 370 ms P-R-T Axes : 039 -27 019 degrees QTc Int : 424 ms Normal sinus rhythm Moderate voltage criteria for LVH, may be normal variant ( R in aVL , Maycol product ) Borderline ECG When compared with ECG of 24-FEB-2023 22:45, No significant change was found Referred By: Otilio Christian Electronically Signed By:Jesús Quintana
[2023-04-20 06:02] VITALS: BP 170/80; PULSE 71; RESP 16; TEMP 37.2; O2SAT 98; BMI 29.3
[2023-04-20] MEDS: amLODIPine Besylate 5 MG TABLET PO (06:10)
[2023-04-20] MEDS: Metoprolol Succinate ER 50 MG TAB.ER.24H PO (06:10)
[2023-04-20] MEDS: ALPRAZolam 0.25 MG TABLET PO (06:10)
--- NOTE | 2023-04-20 06:11 | PC.NURSE ---
pt c/o htn, chest pain , anxiety and nausea no apparent distress
[2023-04-20 06:15] VITALS: BP 170/80; PULSE 79; RESP 15; TEMP 37.2; O2SAT 98
--- NOTE | 2023-04-20 06:17 | ED.GENADULT ---
HPI - General Adult General Chief complaint: General Medical Stated complaint: retention Time Seen by Provider: 04/20/23 05:56 Source: patient and EMS Mode of arrival: EMS Limitations: no limitations History of Present Illness HPI narrative: 77-year-old female with history of hypertension anxiety presents requesting anxiety medication. Patient reports that her CT TECHNICIAN would not give her alprazolam. She did take her blood pressure medication approximately 10:00 a.m. last night. She says that her blood pressure gets elevated when she is anxious. She also has been having some chest tightness since about 1:00 a.m. in the morning. There is no clear relieving or exacerbating features. Not associated with exertion. It appears to be associated with anxiety. She denies any lower extremity edema, orthopnea, PND, cough or mucus production. She reports her medications are otherwise being dispense were appropriately patient was in the emergency department yesterday requesting benzodiazepines as well. EMS was contacted this morning. She they found her blood pressure to be in the 190s over 104. She denies any headache or focal neurologic deficits. Related Data Home Medications Medication Instructions Recorded Confirmed alprazolam 0.5 mg tablet 0.5 mg PO TID PRN Anxiety 08/09/20 02/06/23 aripiprazole 2 mg tablet 2 mg PO BEDTIME 08/09/20 02/06/23 cholecalciferol (vitamin D3) 25 25 mcg PO BID 08/09/20 02/06/23 mcg (1,000 unit) tablet hydroxyzine HCl 50 mg tablet 50 mg PO TID PRN Anxiety 08/09/20 02/06/23 linaclotide 145 mcg capsule 145 mcg PO DAILY 08/09/20 02/06/23 mirtazapine 45 mg tablet 45 mg PO BEDTIME 08/09/20 02/06/23 multivitamin 1 cap PO DAILY 08/09/20 02/06/23 omeprazole 20 mg tablet,delayed 20 mg PO DAILY 08/09/20 02/06/23 release sertraline 50 mg tablet 50 mg PO BEDTIME 08/09/20 02/06/23 Previous Rx's Medication Instructions Recorded escitalopram oxalate 10 mg tablet 10 mg PO DAILY #30 tabs 09/06/20 acetaminophen 325 mg capsule 325 mg PO QID PRN fever or pain 09/16/20 #30 caps aspirin 81 mg tablet,delayed 81 mg PO BEDTIME #90 tabs 09/28/20 release metoprolol succinate 50 mg 50 mg PO DAILY #90 tabs 09/28/20 tablet,extended release 24 hr menthol 0.44 %-zinc oxide 20.6 % 1 appl topical QID PRN skin 12/13/20 topical ointment (Calmoseptine) irritation #113 grams magnesium citrate 150 ml PO DAILY PRN constipation 12/14/20 #296 mL diphenhydramine HCl 25 mg capsule 25 mg PO BEDTIME insomnia #7 caps 12/25/20 (Benadryl) melatonin 10 mg tablet,extended 10 mg PO .nightly #5 tabs 01/07/21 release cefdinir 300 mg capsule 300 mg PO BID Otitis media 10 days 04/14/21 #20 caps ondansetron HCl 4 mg tablet 4 mg PO Q8H PRN nausea and 04/14/21 (Zofran) vomiting #14 tabs metoprolol succinate 50 mg 50 mg PO DAILY #14 tabs 05/22/21 tablet,extended release 24 hr ciprofloxacin 0.3 %-dexamethasone 4 drp otic (ears) BID 7 days 05/26/21 0.1 % ear drops,suspension (Ciprodex) polyethylene glycol 3350 17 17 g PO DAILY PRN constipation 07/31/21 gram/dose oral powder (Miralax) #238 grams hydrocortisone acetate 25 mg 25 mg TN BID #12 ea 08/01/21 rectal suppository (Anucort-HC) cefuroxime axetil 500 mg tablet 500 mg PO BID 7 days #14 tabs 09/01/21 meclizine 25 mg tablet 25 mg PO TID PRN dizziness #10 tabs 09/01/21 zolpidem 5 mg tablet (Ambien) 5 mg PO BEDTIME PRN sleep #2 tabs 10/29/21 zolpidem 5 mg tablet (Ambien) 5 mg PO BEDTIME PRN sleep #2 tabs 10/29/21 lisinopril 40 mg tablet 40 mg PO QPM #90 tabs 06/06/22 levofloxacin 500 mg tablet 500 mg PO DAILY 7 days #7 tabs 07/23/22 levofloxacin 500 mg tablet 500 mg PO DAILY #6 tabs 08/25/22 ofloxacin 0.3 % ear drops 10 drp otic (ears) DAILY 7 days #5 08/25/22 mL hydrocortisone 2.5 % topical cream 1 appl TN BEDTIME PRN hemorrhoids 09/20/22 with perineal applicator #30 grams docusate sodium 100 mg capsule 100 mg PO BID PRN Constipation #14 12/06/22 (Colace) caps phenylephrine 0.25 %-mineral oil 1 appl TN BID PRN hemorrhoids #56 12/06/22 14 %-petrolatm 74.9 % rectal grams ointment (Hemorrhoidal(phenyleph-min oil-petrolat)) polyethylene glycol 3350 17 17 g PO BID #119 grams 12/06/22 gram/dose oral powder (Miralax) cefuroxime axetil 500 mg tablet 500 mg PO BID 10 days #20 tabs 12/16/22 alprazolam 0.25 mg tablet 0.25 mg PO QID #7 tabs 01/04/23 ofloxacin 0.3 % ear drops 5 drp otic (ear) left BID 7 days 01/06/23 #5 mL alprazolam 0.25 mg tablet 0.25 mg PO TID PRN anxiety #7 tabs 01/11/23 alprazolam 0.25 mg tablet 0.25 mg PO TID PRN anxiety #3 tabs 02/02/23 Allergies Allergy/AdvReac Type Severity Reaction Status Date / Time penicillin G [Penicillin G] Allergy Severe ITCHY/RASH Verified 03/17/23 04:37 Sulfa (Sulfonamide Allergy Severe ITCHY,RASH, Verified 03/17/23 04:37 Antibiotics) rash [Sulfa (Sulfonamides)] trimethoprim [From Bactrim] Allergy Severe HIVES Verified 03/17/23 04:37 penicillin V Allergy Unknown rash Verified 03/17/23 04:37 sulfacetamide Allergy Unknown unknown Verified 03/17/23 04:37 [From Sulfacet-R] sulfur [From Sulfacet-R] Allergy Unknown unknown Verified 03/17/23 04:37 Review of Systems Review of Systems: CONSTITUTIONAL: Denies weight loss, fever and chills. HEENT: Denies changes in vision and hearing. RESPIRATORY: Denies SOB and cough. CV: Denies palpitations + CP. GI: Denies abdominal pain, nausea, vomiting and diarrhea. : Denies dysuria and urinary frequency. MSK: Denies myalgia and joint pain. SKIN: Denies rash and pruritus. NEUROLOGICAL: Denies headache and syncope. PSYCHIATRIC: Denies recent changes in mood. + anxiety - depression. All other ROS are negative unless in HPI PMFSH Past Medical History Medical History Anxiety Arthritis Bleeding hemorrhoids Chronic constipation Dementia Essential hypertension High blood pressure PAC (premature atrial contraction) PVC (premature ventricular contraction) SVT (supraventricular tachycardia) Vertigo Surgical History No pertinent past surgical history Social History Social History Alcohol intake: never Patient Tobacco Use Status: Never used Tobacco Smoked in Last 30 Days: No Use of substances other than those prescribed or required for medical reasons: No Advance Directives: No Advance Directives Information Provided: Yes Physical Exam ED Vital Signs: Vital Signs - 24 hr 04/20/23 06:15 04/20/23 06:02 Temperature 99.0 F 99.0 F Pulse Rate 79 71 Respiratory Rate 15 16 Blood Pressure 170/80 H 170/80 H Pulse Oximetry 98 98 Oxygen Delivery Method Room Air Room Air BMI result Body Mass Index 29.3 GEN: Well developed, no acute distress, alert, oriented HEENT: Normocephalic, atraumatic, normal external ears, nose appears normal, no oropharyngeal edema or exudates Eyes: Normal to appearance Neck: Supple, no lymphadenopathy Respiratory: Talks in complete sentences, no respiratory distress, clear to auscultation bilaterally Cardiovascular: Regular rate and rhythm, no murmurs rubs or gallops Abdomen: Soft, nontender, nondistended, no guarding, no rebound Back: No CVA tenderness Extremities: No clubbing cyanosis or edema Neurologic: No focal neurologic deficits, cranial nerves 2-12 intact, strength is 5/5 bilaterally Skin: No rash Course Course Course Narrative: 77-year-old female with history of hypertension, anxiety presents requesting or anxiety medications. Patient was seen on April 19, April 15 of April 14 of April 04, March 18 lung other dates requesting anxiety medications. Patient does complain of some chest tightness and she is hyper her EKG is nonischemic. Will check cardiac enzymes. Assuming they are negative, will likely be able to discharge patient home. At this point I have given her 1 dose of anxiety medication. I will not prescribe her any additional anxiety medication because 1) this is a chronic condition that should be managed by her primary care provider or psychiatrist, 2) there is significant concern that multiple providers are prescribing her anxiety medications at this time which could lead to polypharmacy a and risk of accidental overdose. This is been informed to the patient. She is well aware that she may not receive further prescriptions from the emergency department for her chronic condition specially for controlled medications. Patient will be discharged assuming her lab work is unremarkable for any significant acute disease process. Reevaluation(s) Reevaluation #1: Cardiac enzyme is negative. Patient she will be discharged at this time. Time: 06:54 Medications Administered Discontinued Medications Generic Name Dose Route Start Last Admin Trade Name Samyq PRN Reason Stop Dose Admin Alprazolam 0.25 mg 04/20/23 05:57 04/20/23 06:10 Alprazolam 0.25 Mg Tablet PO 04/20/23 05:58 0.25 mg ONCE ONE Administration Amlodipine Besylate 5 mg 04/20/23 05:57 04/20/23 06:10 Amlodipine Besylate 5 Mg Tablet PO 04/20/23 05:58 5 mg ONCE ONE Administration Protocol Metoprolol Succinate 50 mg 04/20/23 05:57 04/20/23 06:10 Metoprolol Succinate Er 50 Mg Tab.Er.24h PO 04/20/23 05:58 50 mg ONCE ONE Administration Protocol Medical Decision Making Medical Decision Making MDM Narrative: Patient presents with anxiety, elevated blood pressure. Patient reports not being able to get her medication from her CT TECHNICIAN. Given the fact that patient's blood pressure is elevated she is having chest discomfort, I will do a cardiac workup on her to make sure she is appropriate for discharge. I will provider with her medications for her blood pressure. Will provide 1 dose of anxiety medication. She will need an EKG to rule out acute cardiac ischemia. She will need 1 set of cardiac enzymes given that her symptoms started approximately 1:00 a.m. as well as having multiple days of similar symptoms in visits the emergency department. I will refer the patient to her primary care provider for medication assistance. Differential Diagnosis Differential Diagnoses: The differential diagnosis associated with the presentation includes (Anxiety, cardiac pain, hypertensive urgency, seeking behavior, factitious disorder, somatization disorder, mood disorder, atypical chest pain) anxiety, HTN Admission/Observation Consideration of admission/observation: Escalation of care including admission/observation considered Lab Data MDM Lab Attestation statement: I reviewed the patient's lab results. 04/20/23 06:19 04/20/23 06:19 Labs: Lab Results 04/20/23 04/20/23 04/20/23 Range/Units 06:19 06:19 06:19 WBC 7.8 (4.8-10.8) X10*3/uL RBC 4.28 (4.20-5.50) X10*6/uL Hgb 12.0 (12.0-16.0) g/dl Hct 36.0 L (37.0-47.0) % MCV 84.1 (80.0-98.0) fL MCH 28.0 (27.0-33.0) pg MCHC 33.3 (31.0-35.0) g/dl RDW 13.8 (11.0-16.0) % Plt Count 351 (160-400) X10*3/uL MPV 8.7 L (9.4-12.3) fL Immature Gran % (Auto) 1.3 H (0.0-0.4) % Neut % (Auto) 68.5 (45-73) % Lymph % (Auto) 20.9 (20-40) % Story % (Auto) 8.2 (2-11) % Eos % (Auto) 0.3 (0-4) % Baso % (Auto) 0.8 (0-2) % Lymph # (Auto) 1.6 (1.2-4.9) X10*3/uL Story # (Auto) 0.6 (0.1-1.2) X10*3/uL Eos # (Auto) 0.0 (0.0-0.4) X10*3/uL Baso # (Auto) 0.1 (0.0-0.2) X10*3/uL Abs Immat Gran (auto) 0.10 H (0.00-0.03) X10*3/uL Absolute Neuts (auto) 5.4 (2.0-8.3) x10*3/uL Absolute Nucleated RBC 0.000 (0.0-0.012) X10*3/uL Nucleated RBC % (auto) 0.0 (0.0-0.2) /100WBC Sodium 129 L (135-145) mmol/L Potassium 4.6 (3.3-5.1) mmol/L Chloride 95 L (96-108) mmol/L Carbon Dioxide 25 (22-29) mmol/L Anion Gap 14 (12-20) BUN 20 H (9-16) mg/dL Creatinine 0.92 (0.5-1.4) mg/dL Estim Creat Clear Calc 57.4 Estimated GFR 59 Random Glucose 107 (60-115) mg/dL Calcium 9.4 (8.4-10.2) mg/dL Troponin I High Sens < 2.7 (<3.5-17.0) ng/L Independent Interpretation I performed an independent interpretation of an: EKG (Normal sinus rhythm heart rate 79, no acute ST elevation depression, evidence of LVH no significant changes compared to 02/24/2023) Independent Historian Clinical information obtained from an independent historian. History obtained from or confirmed by: EMS External Record Review External record reviewed: Office record (Cardiology consultation January of 2021) Tests considered The following testing was considered but not selected: Chest x-ray Prescription Management I considered prescription management with: Pain Medication Chronic Conditions Patient?s care impacted by: Hypertension Discharge Plan Discharge Clinical Impression: Essential hypertension, Generalized anxiety disorder with panic attacks, Chronic hyponatremia Patient Disposition: Home, Self-Care Instructions: Hyponatremia (ED), DASH Eating Plan (ED), Hypertension (ED), Anxiety (ED) Additional Instructions: You were seen today with issues related to blood pressure and anxiety. Regarding her blood pressure, we gave you to of your oral medications that you are due for this morning. Monitor blood pressure. Blood pressure came down appropriately however still remained hypertensive. We recommend close follow-up with her primary care provider for adjustments of any medications. Regarding your anxiety, you have been here multiple times for anxiety related issues requesting anxiety medications as you have told us that your clinical documentation specialist not administering her medications appropriately. At this point, we are definitely recommending that you follow-up with her primary care provider, consider psychiatric consultation in order to better manage her chronic anxiety disorder. You were provided with 1 dose severe oral anxiety medication this morning. I did not prescribe you your chronic anxiety medication given concerns for multiple providers prescribing you similar medications recently and that this is a chronic condition best managed by doctors who know you best. Should you have any to be evaluated in the emergency department, we recommend that you return immediately for evaluation. It is possible that you may not receive anxiety medications at that time. We will of course can always make sure that you are medically stable and treated appropriately. Please do not hesitate to return to the emergency department for any reason specifically if you have any chest pain, shortness of breath, palpitations, lightheadedness, progressive symptoms or any other concerning symptoms for that matter. Prescriptions: No Action escitalopram oxalate 10 mg tablet 10 mg PO DAILY Qty: 30 1RF metoprolol succinate 50 mg tablet extended release 24 hr 50 mg PO DAILY Qty: 90 2RF aspirin 81 mg tablet,delayed release (DR/EC) 81 mg PO BEDTIME Qty: 90 2RF polyethylene glycol 3350 [Miralax] 17 gram/dose powder 17 g PO DAILY PRN (Reason: constipation) Qty: 238 0RF lisinopril 40 mg tablet 40 mg PO QPM Qty: 90 3RF acetaminophen 325 mg capsule 325 mg PO QID PRN (Reason: fever or pain) Qty: 30 0RF melatonin 10 mg tablet extended release 10 mg PO .nightly Qty: 5 0RF metoprolol succinate 50 mg tablet extended release 24 hr 50 mg PO DAILY Qty: 14 0RF ciprofloxacin-dexamethasone [Ciprodex] 0.3-0.1 % drops,suspension 4 drp otic (ears) BID 7 Days 0RF alprazolam 0.5 mg Tablet 0.5 mg PO TID PRN (Reason: Anxiety) hydroxyzine HCl 50 mg Tablet 50 mg PO TID PRN (Reason: Anxiety) mirtazapine 45 mg Tablet 45 mg PO BEDTIME multivitamin Capsule 1 cap PO DAILY sertraline 50 mg Tablet 50 mg PO BEDTIME aripiprazole 2 mg Tablet 2 mg PO BEDTIME cholecalciferol (vitamin D3) 25 mcg (1,000 unit) Tablet 25 mcg PO BID omeprazole 20 mg Tablet,Delayed Release (Dr/Ec) 20 mg PO DAILY linaclotide 145 mcg Capsule 145 mcg PO DAILY diphenhydramine HCl [Benadryl] 25 mg capsule 25 mg PO BEDTIME Qty: 7 0RF cefdinir 300 mg capsule 300 mg PO BID 10 Days Qty: 20 0RF ondansetron HCl [Zofran] 4 mg tablet 4 mg PO Q8H PRN (Reason: nausea and vomiting) Qty: 14 0RF cefuroxime axetil 500 mg tablet 500 mg PO BID 7 Days Qty: 14 0RF meclizine 25 mg tablet 25 mg PO TID PRN (Reason: dizziness) Qty: 10 0RF levofloxacin 500 mg tablet 500 mg PO DAILY 7 Days Qty: 7 0RF cefuroxime axetil 500 mg tablet 500 mg PO BID 10 Days Qty: 20 0RF alprazolam 0.25 mg tablet 0.25 mg PO QID Qty: 7 0RF levofloxacin 500 mg tablet 500 mg PO DAILY Qty: 6 0RF Rx Instructions: start on 08/26 ofloxacin 0.3 % drops 10 drp otic (ears) DAILY 7 Days Qty: 5 0RF Rx Instructions: can substitute eye drops if necessary hydrocortisone 2.5 % cream with perineal applicator 1 appl TN BEDTIME PRN (Reason: hemorrhoids) Qty: 30 0RF Hemorrhoidal(PE-min oil-emma) 0.25-14-74.9 % ointment 1 appl TN BID PRN (Reason: hemorrhoids) Qty: 56 0RF polyethylene glycol 3350 [Miralax] 17 gram/dose powder 17 g PO BID Qty: 119 0RF docusate sodium [Colace] 100 mg capsule 100 mg PO BID PRN (Reason: Constipation) Qty: 14 0RF ofloxacin 0.3 % drops 5 drp otic (ear) left BID 7 Days Qty: 5 0RF alprazolam 0.25 mg tablet 0.25 mg PO TID PRN (Reason: anxiety) Qty: 7 0RF alprazolam 0.25 mg tablet 0.25 mg PO TID PRN (Reason: anxiety) Qty: 3 0RF Calmoseptine 0.44-20.6 % ointment 1 appl topical QID PRN (Reason: skin irritation) Qty: 113 0RF magnesium citrate Solution 150 ml PO DAILY PRN (Reason: constipation) Qty: 296 0RF Rx Instructions: take only when needed for constipation hydrocortisone acetate [Anucort-HC] 25 mg suppository 25 mg TN BID Qty: 12 3RF zolpidem [Ambien] 5 mg tablet 5 mg PO BEDTIME PRN (Reason: sleep) Qty: 2 0RF zolpidem [Ambien] 5 mg tablet 5 mg PO BEDTIME PRN (Reason: sleep) Qty: 2 0RF Referrals: Physician,Unknown J [Primary Care Provider] - (Primary care provider on Friday or Friday)
--- NOTE | 2023-04-20 06:21 | PC.NURSE ---
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
[2023-04-20 06:24] LABS: MANUAL DIFF FLAG NO
--- NOTE | 2023-04-20 06:26 | PC.NURSE ---
pt denies pain, chest pain resolved
[2023-04-20 06:34] LABS: Basophils Absolute Auto 0.1 X10*3/uL (0.0-0.2); Basophils Percent Auto 0.8 % (0-2); Eosinophils Percent Auto 0.3 % (0-4); Imm Gran Pct Auto 1.3 % (0.0-0.4); Lymphocytes Absolute Auto 1.6 X10*3/uL (1.2-4.9); Lymphocytes Percent Auto 20.9 % (20-40); Mean Corpuscular HGB Conc 33.3 g/dl (31.0-35.0); Mean Corpuscular Volume 84.1 fL (80.0-98.0); Mean Platelet Volume 8.7 fL (9.4-12.3); Monocytes Absolute Auto 0.6 X10*3/uL (0.1-1.2); Monocytes Percent Auto 8.2 % (2-11); Neutrophils Absolute Auto 5.4 x10*3/uL (2.0-8.3); Neutrophils Percent Auto 68.5 % (45-73); Platelet Count 351 X10*3/uL (160-400); Red Blood Count 4.28 X10*6/uL (4.20-5.50); Red Cell Distribution Width 13.8 % (11.0-16.0); White Blood Count 7.8 X10*3/uL (4.8-10.8)
[2023-04-20 06:40] LABS: Anion Gap 14 (12-20); Blood Urea Nitrogen 20 mg/dL (9-16); Calcium 9.4 mg/dL (8.4-10.2); Carbon Dioxide 25 mmol/L (22-29); Chloride 95 mmol/L (96-108); Creatinine Clr Calc Pharmacy 57.4; Estimated Glomerular Filt Rate 59; Glucose Random 107 mg/dL (60-115); Potassium 4.6 mmol/L (3.3-5.1); Sodium 129 mmol/L (135-145)
[2023-04-20 06:49] LABS: Troponin-I High Sensitivity < 2.7 ng/L (<3.5-17.0)
[2023-04-20 06:58] VITALS: BP 156/77; PULSE 77
--- NOTE | 2023-04-20 07:04 | PC.NURSE ---
Discharge instructions given and explained to patient No respiratory distress Able to speak in full sentences no sob Ambulates safely and independently [id number] All of pt's questions answered
== END 2023-04-20 07:55 | disposition home or self-care (01) ==
PROVIDERS: Emergency Provider Emergency Medicine
DX: R07.89 Other chest pain (principal); F41.1 Generalized anxiety disorder; F43.0 Acute stress reaction; E87.1 Hypo-osmolality and hyponatremia; I10 Essential (primary) hypertension; Z79.899 Other long term (current) drug therapy
CPT/HCPCS: 36415; 80048; 84484; 85025; 93005; 99284

== ENCOUNTER 2023-04-20 22:38 | Emergency (ER) | payer OTHER, SELFPAY ==
[2023-04-20 22:47] VITALS: BP 146/68; BP 182/84; PULSE 78; PULSE 79; RESP 18; TEMP 37.3; O2SAT 98; O2SAT 99; BMI 27.2
[2023-04-20 22:52] VITALS: BP 146/68; PULSE 75; RESP 18; TEMP 37.3; O2SAT 99
--- NOTE | 2023-04-20 22:55 | PC.NURSE ---
Patient alert and oriented. Reports feeling of anxiety. She is asking for medications for anxiety, constipation and high blood pressure. Vitals stable. Will continue to follow plan of care
[2023-04-20] MEDS: ALPRAZolam 0.5 MG TABLET PO (23:03)
--- NOTE | 2023-04-20 23:10 | ED.ANXIETY ---
HPI - Anxiety General Chief Complaint: Anxiety Stated Complaint: anxiety Time Seen by Provider: 04/20/23 22:53 Source: patient Mode of arrival: ambulatory Limitations: no limitations History of Present Illness HPI narrative: Patient generalized anxiety disorder been here multiple times for anxiety her sister is sick patient has been more anxious taking Xanax 0.5 mg 3 4 times a day medication she will get the new prescription and next 2 -3 days, patient feels very anxious Related Data Home Medications Medication Instructions Recorded Confirmed alprazolam 0.5 mg tablet 0.5 mg PO TID PRN Anxiety 08/09/20 02/06/23 aripiprazole 2 mg tablet 2 mg PO BEDTIME 08/09/20 02/06/23 cholecalciferol (vitamin D3) 25 25 mcg PO BID 08/09/20 02/06/23 mcg (1,000 unit) tablet hydroxyzine HCl 50 mg tablet 50 mg PO TID PRN Anxiety 08/09/20 02/06/23 linaclotide 145 mcg capsule 145 mcg PO DAILY 08/09/20 02/06/23 mirtazapine 45 mg tablet 45 mg PO BEDTIME 08/09/20 02/06/23 multivitamin 1 cap PO DAILY 08/09/20 02/06/23 omeprazole 20 mg tablet,delayed 20 mg PO DAILY 08/09/20 02/06/23 release sertraline 50 mg tablet 50 mg PO BEDTIME 08/09/20 02/06/23 Previous Rx's Medication Instructions Recorded escitalopram oxalate 10 mg tablet 10 mg PO DAILY #30 tabs 09/06/20 acetaminophen 325 mg capsule 325 mg PO QID PRN fever or pain 09/16/20 #30 caps aspirin 81 mg tablet,delayed 81 mg PO BEDTIME #90 tabs 09/28/20 release metoprolol succinate 50 mg 50 mg PO DAILY #90 tabs 09/28/20 tablet,extended release 24 hr menthol 0.44 %-zinc oxide 20.6 % 1 appl topical QID PRN skin 12/13/20 topical ointment (Calmoseptine) irritation #113 grams magnesium citrate 150 ml PO DAILY PRN constipation 12/14/20 #296 mL diphenhydramine HCl 25 mg capsule 25 mg PO BEDTIME insomnia #7 caps 12/25/20 (Benadryl) melatonin 10 mg tablet,extended 10 mg PO .nightly #5 tabs 01/07/21 release cefdinir 300 mg capsule 300 mg PO BID Otitis media 10 days 04/14/21 #20 caps ondansetron HCl 4 mg tablet 4 mg PO Q8H PRN nausea and 04/14/21 (Zofran) vomiting #14 tabs metoprolol succinate 50 mg 50 mg PO DAILY #14 tabs 05/22/21 tablet,extended release 24 hr ciprofloxacin 0.3 %-dexamethasone 4 drp otic (ears) BID 7 days 05/26/21 0.1 % ear drops,suspension (Ciprodex) polyethylene glycol 3350 17 17 g PO DAILY PRN constipation 07/31/21 gram/dose oral powder (Miralax) #238 grams hydrocortisone acetate 25 mg 25 mg MO BID #12 ea 08/01/21 rectal suppository (Anucort-HC) cefuroxime axetil 500 mg tablet 500 mg PO BID 7 days #14 tabs 09/01/21 meclizine 25 mg tablet 25 mg PO TID PRN dizziness #10 tabs 09/01/21 zolpidem 5 mg tablet (Ambien) 5 mg PO BEDTIME PRN sleep #2 tabs 10/29/21 zolpidem 5 mg tablet (Ambien) 5 mg PO BEDTIME PRN sleep #2 tabs 10/29/21 lisinopril 40 mg tablet 40 mg PO QPM #90 tabs 06/06/22 levofloxacin 500 mg tablet 500 mg PO DAILY 7 days #7 tabs 07/23/22 levofloxacin 500 mg tablet 500 mg PO DAILY #6 tabs 08/25/22 ofloxacin 0.3 % ear drops 10 drp otic (ears) DAILY 7 days #5 08/25/22 mL hydrocortisone 2.5 % topical cream 1 appl MO BEDTIME PRN hemorrhoids 09/20/22 with perineal applicator #30 grams docusate sodium 100 mg capsule 100 mg PO BID PRN Constipation #14 12/06/22 (Colace) caps phenylephrine 0.25 %-mineral oil 1 appl MO BID PRN hemorrhoids #56 12/06/22 14 %-petrolatm 74.9 % rectal grams ointment (Hemorrhoidal(phenyleph-min oil-petrolat)) polyethylene glycol 3350 17 17 g PO BID #119 grams 12/06/22 gram/dose oral powder (Miralax) cefuroxime axetil 500 mg tablet 500 mg PO BID 10 days #20 tabs 12/16/22 alprazolam 0.25 mg tablet 0.25 mg PO QID #7 tabs 01/04/23 ofloxacin 0.3 % ear drops 5 drp otic (ear) left BID 7 days 01/06/23 #5 mL alprazolam 0.25 mg tablet 0.25 mg PO TID PRN anxiety #7 tabs 01/11/23 alprazolam 0.25 mg tablet 0.25 mg PO TID PRN anxiety #3 tabs 02/02/23 alprazolam 0.5 mg tablet (Xanax) 0.5 mg PO BEDTIME PRN anxiety #7 04/20/23 tabs Allergies Allergy/AdvReac Type Severity Reaction Status Date / Time penicillin G [Penicillin G] Allergy Severe ITCHY/RASH Verified 03/17/23 04:37 Sulfa (Sulfonamide Allergy Severe ITCHY,RASH, Verified 03/17/23 04:37 Antibiotics) rash [Sulfa (Sulfonamides)] trimethoprim [From Bactrim] Allergy Severe HIVES Verified 03/17/23 04:37 penicillin V Allergy Unknown rash Verified 03/17/23 04:37 sulfacetamide Allergy Unknown unknown Verified 03/17/23 04:37 [From Sulfacet-R] sulfur [From Sulfacet-R] Allergy Unknown unknown Verified 03/17/23 04:37 [facility] Past Medical History Medical History Anxiety Arthritis Bleeding hemorrhoids Chronic constipation Dementia Essential hypertension High blood pressure PAC (premature atrial contraction) PVC (premature ventricular contraction) SVT (supraventricular tachycardia) Vertigo Surgical History No pertinent past surgical history Social History Social History Alcohol intake: never Patient Tobacco Use Status: Never used Tobacco Smoked in Last 30 Days: No Use of substances other than those prescribed or required for medical reasons: No Advance Directives: No Advance Directives Information Provided: Yes Physical Exam Vital Signs: Vital Signs: Last Vital Signs Temp 99.2 F 04/20/23 22:52 Pulse 75 04/20/23 22:52 Resp 18 04/20/23 22:52 BP 146/68 H 04/20/23 22:52 Pulse Ox 99 04/20/23 22:52 O2 Del Method Room Air 04/20/23 22:52 BMI result Body Mass Index 27.2 Medications Administered Discontinued Medications Generic Name Dose Route Start Last Admin Trade Name Freq PRN Reason Stop Dose Admin Alprazolam 0.5 mg 04/20/23 22:53 04/20/23 23:03 Alprazolam 0.5 Mg Tablet PO 04/20/23 22:54 0.5 mg ONCE ONE Administration Discharge Plan Discharge Clinical Impression: Generalized anxiety disorder with panic attacks Patient Disposition: Home, Self-Care Instructions: Anxiety (ED) Additional Instructions: Take your anxiety medication and follow with PCP Prescriptions: New alprazolam [Xanax] 0.5 mg tablet 0.5 mg PO BEDTIME PRN (Reason: anxiety) Qty: 7 0RF No Action escitalopram oxalate 10 mg tablet 10 mg PO DAILY Qty: 30 1RF metoprolol succinate 50 mg tablet extended release 24 hr 50 mg PO DAILY Qty: 90 2RF aspirin 81 mg tablet,delayed release (DR/EC) 81 mg PO BEDTIME Qty: 90 2RF polyethylene glycol 3350 [Miralax] 17 gram/dose powder 17 g PO DAILY PRN (Reason: constipation) Qty: 238 0RF lisinopril 40 mg tablet 40 mg PO QPM Qty: 90 3RF acetaminophen 325 mg capsule 325 mg PO QID PRN (Reason: fever or pain) Qty: 30 0RF melatonin 10 mg tablet extended release 10 mg PO .nightly Qty: 5 0RF metoprolol succinate 50 mg tablet extended release 24 hr 50 mg PO DAILY Qty: 14 0RF ciprofloxacin-dexamethasone [Ciprodex] 0.3-0.1 % drops,suspension 4 drp otic (ears) BID 7 Days 0RF alprazolam 0.5 mg Tablet 0.5 mg PO TID PRN (Reason: Anxiety) hydroxyzine HCl 50 mg Tablet 50 mg PO TID PRN (Reason: Anxiety) mirtazapine 45 mg Tablet 45 mg PO BEDTIME multivitamin Capsule 1 cap PO DAILY sertraline 50 mg Tablet 50 mg PO BEDTIME aripiprazole 2 mg Tablet 2 mg PO BEDTIME cholecalciferol (vitamin D3) 25 mcg (1,000 unit) Tablet 25 mcg PO BID omeprazole 20 mg Tablet,Delayed Release (Dr/Ec) 20 mg PO DAILY linaclotide 145 mcg Capsule 145 mcg PO DAILY diphenhydramine HCl [Benadryl] 25 mg capsule 25 mg PO BEDTIME Qty: 7 0RF cefdinir 300 mg capsule 300 mg PO BID 10 Days Qty: 20 0RF ondansetron HCl [Zofran] 4 mg tablet 4 mg PO Q8H PRN (Reason: nausea and vomiting) Qty: 14 0RF cefuroxime axetil 500 mg tablet 500 mg PO BID 7 Days Qty: 14 0RF meclizine 25 mg tablet 25 mg PO TID PRN (Reason: dizziness) Qty: 10 0RF levofloxacin 500 mg tablet 500 mg PO DAILY 7 Days Qty: 7 0RF cefuroxime axetil 500 mg tablet 500 mg PO BID 10 Days Qty: 20 0RF alprazolam 0.25 mg tablet 0.25 mg PO QID Qty: 7 0RF levofloxacin 500 mg tablet 500 mg PO DAILY Qty: 6 0RF Rx Instructions: start on 08/26 ofloxacin 0.3 % drops 10 drp otic (ears) DAILY 7 Days Qty: 5 0RF Rx Instructions: can substitute eye drops if necessary hydrocortisone 2.5 % cream with perineal applicator 1 appl MO BEDTIME PRN (Reason: hemorrhoids) Qty: 30 0RF Hemorrhoidal(PE-min oil-emma) 0.25-14-74.9 % ointment 1 appl MO BID PRN (Reason: hemorrhoids) Qty: 56 0RF polyethylene glycol 3350 [Miralax] 17 gram/dose powder 17 g PO BID Qty: 119 0RF docusate sodium [Colace] 100 mg capsule 100 mg PO BID PRN (Reason: Constipation) Qty: 14 0RF ofloxacin 0.3 % drops 5 drp otic (ear) left BID 7 Days Qty: 5 0RF alprazolam 0.25 mg tablet 0.25 mg PO TID PRN (Reason: anxiety) Qty: 7 0RF alprazolam 0.25 mg tablet 0.25 mg PO TID PRN (Reason: anxiety) Qty: 3 0RF Calmoseptine 0.44-20.6 % ointment 1 appl topical QID PRN (Reason: skin irritation) Qty: 113 0RF magnesium citrate Solution 150 ml PO DAILY PRN (Reason: constipation) Qty: 296 0RF Rx Instructions: take only when needed for constipation hydrocortisone acetate [Anucort-HC] 25 mg suppository 25 mg MO BID Qty: 12 3RF zolpidem [Ambien] 5 mg tablet 5 mg PO BEDTIME PRN (Reason: sleep) Qty: 2 0RF zolpidem [Ambien] 5 mg tablet 5 mg PO BEDTIME PRN (Reason: sleep) Qty: 2 0RF
== END 2023-04-20 23:26 | disposition home or self-care (01) ==
PROVIDERS: Emergency Provider Internal Medicine
DX: F41.1 Generalized anxiety disorder (principal); F43.0 Acute stress reaction; F41.0 Panic disorder [episodic paroxysmal anxiety]
CPT/HCPCS: 99283; 99284

== ENCOUNTER 2023-04-22 00:22 | Emergency (ER) | payer OTHER, SELFPAY ==
[2023-04-22 00:28] VITALS: BP 174/86; PULSE 81; RESP 16; TEMP 37; O2SAT 99; BMI 26.6
[2023-04-22 00:30] VITALS: BP 170/80; PULSE 88; O2SAT 98
--- NOTE | 2023-04-22 00:33 | ED_ITS ---
HPI - General Adult General Chief complaint: Anxiety Stated complaint: bp Time Seen by Provider: 04/22/23 00:23 Source: patient, EMS, RN notes reviewed and old records reviewed Mode of arrival: EMS Limitations: no limitations History of Present Illness HPI narrative: 77-year-old female presents for evaluation of ?panic attacks. ? Patient has been seen numerous times at this facility for anxiety and anxiety related complaints. She states that her she was ?feeling anxiety and they will not fill my prescription until 9:00 a.m. today. ? Patient was seen here twice on 04/20/2023 Patient reports that she is moving to [place] on Friday to live with her daughter to get more assistance Patient states that because the pharmacy will not fill her prescription until this morning she ?needs a dose right now. ? Patient was prescribed alprazolam 2 days ago Per the patient's prescription monitoring program she has not filled a prescription for benzodiazepine in the last 2 days and her last prescription filled was for 1 week and was filled on 04/14/2023 The patient specifically denies any chest pain or shortness of breath currently. Related Data Home Medications Medication Instructions Recorded Confirmed alprazolam 0.5 mg tablet 0.5 mg PO TID PRN Anxiety 08/09/20 02/06/23 aripiprazole 2 mg tablet 2 mg PO BEDTIME 08/09/20 02/06/23 cholecalciferol (vitamin D3) 25 25 mcg PO BID 08/09/20 02/06/23 mcg (1,000 unit) tablet hydroxyzine HCl 50 mg tablet 50 mg PO TID PRN Anxiety 08/09/20 02/06/23 linaclotide 145 mcg capsule 145 mcg PO DAILY 08/09/20 02/06/23 mirtazapine 45 mg tablet 45 mg PO BEDTIME 08/09/20 02/06/23 multivitamin 1 cap PO DAILY 08/09/20 02/06/23 omeprazole 20 mg tablet,delayed 20 mg PO DAILY 08/09/20 02/06/23 release sertraline 50 mg tablet 50 mg PO BEDTIME 08/09/20 02/06/23 Previous Rx's Medication Instructions Recorded escitalopram oxalate 10 mg tablet 10 mg PO DAILY #30 tabs 09/06/20 acetaminophen 325 mg capsule 325 mg PO QID PRN fever or pain 09/16/20 #30 caps aspirin 81 mg tablet,delayed 81 mg PO BEDTIME #90 tabs 09/28/20 release metoprolol succinate 50 mg 50 mg PO DAILY #90 tabs 09/28/20 tablet,extended release 24 hr menthol 0.44 %-zinc oxide 20.6 % 1 appl topical QID PRN skin 12/13/20 topical ointment (Calmoseptine) irritation #113 grams magnesium citrate 150 ml PO DAILY PRN constipation 12/14/20 #296 mL diphenhydramine HCl 25 mg capsule 25 mg PO BEDTIME insomnia #7 caps 12/25/20 (Benadryl) melatonin 10 mg tablet,extended 10 mg PO .nightly #5 tabs 01/07/21 release cefdinir 300 mg capsule 300 mg PO BID Otitis media 10 days 04/14/21 #20 caps ondansetron HCl 4 mg tablet 4 mg PO Q8H PRN nausea and 04/14/21 (Zofran) vomiting #14 tabs metoprolol succinate 50 mg 50 mg PO DAILY #14 tabs 05/22/21 tablet,extended release 24 hr ciprofloxacin 0.3 %-dexamethasone 4 drp otic (ears) BID 7 days 05/26/21 0.1 % ear drops,suspension (Ciprodex) polyethylene glycol 3350 17 17 g PO DAILY PRN constipation 07/31/21 gram/dose oral powder (Miralax) #238 grams hydrocortisone acetate 25 mg 25 mg NM BID #12 ea 08/01/21 rectal suppository (Anucort-HC) cefuroxime axetil 500 mg tablet 500 mg PO BID 7 days #14 tabs 09/01/21 meclizine 25 mg tablet 25 mg PO TID PRN dizziness #10 tabs 09/01/21 zolpidem 5 mg tablet (Ambien) 5 mg PO BEDTIME PRN sleep #2 tabs 10/29/21 zolpidem 5 mg tablet (Ambien) 5 mg PO BEDTIME PRN sleep #2 tabs 10/29/21 lisinopril 40 mg tablet 40 mg PO QPM #90 tabs 06/06/22 levofloxacin 500 mg tablet 500 mg PO DAILY 7 days #7 tabs 07/23/22 levofloxacin 500 mg tablet 500 mg PO DAILY #6 tabs 08/25/22 ofloxacin 0.3 % ear drops 10 drp otic (ears) DAILY 7 days #5 10/16/22 mL hydrocortisone 2.5 % topical cream 1 appl NM BEDTIME PRN hemorrhoids 09/20/22 with perineal applicator #30 grams docusate sodium 100 mg capsule 100 mg PO BID PRN Constipation #14 12/06/22 (Colace) caps phenylephrine 0.25 %-mineral oil 1 appl NM BID PRN hemorrhoids #56 12/06/22 14 %-petrolatm 74.9 % rectal grams ointment (Hemorrhoidal(phenyleph-min oil-petrolat)) polyethylene glycol 3350 17 17 g PO BID #119 grams 12/06/22 gram/dose oral powder (Miralax) cefuroxime axetil 500 mg tablet 500 mg PO BID 10 days #20 tabs 12/16/22 alprazolam 0.25 mg tablet 0.25 mg PO QID #7 tabs 01/04/23 ofloxacin 0.3 % ear drops 5 drp otic (ear) left BID 7 days 01/06/23 #5 mL alprazolam 0.25 mg tablet 0.25 mg PO TID PRN anxiety #7 tabs 01/11/23 alprazolam 0.25 mg tablet 0.25 mg PO TID PRN anxiety #3 tabs 02/02/23 alprazolam 0.5 mg tablet (Xanax) 0.5 mg PO BEDTIME PRN anxiety #7 04/20/23 tabs Allergies Allergy/AdvReac Type Severity Reaction Status Date / Time penicillin G [Penicillin G] Allergy Severe ITCHY/RASH Verified 03/17/23 04:37 Sulfa (Sulfonamide Allergy Severe ITCHY,RASH, Verified 03/17/23 04:37 Antibiotics) rash [Sulfa (Sulfonamides)] trimethoprim [From Bactrim] Allergy Severe HIVES Verified 03/17/23 04:37 penicillin V Allergy Unknown rash Verified 03/17/23 04:37 sulfacetamide Allergy Unknown unknown Verified 03/17/23 04:37 [From Sulfacet-R] sulfur [From Sulfacet-R] Allergy Unknown unknown Verified 03/17/23 04:37 Review of Systems Constitutional: Constitutional: Reports as per HPI, Denies chills, Denies fatigue, Denies fever(s) and Denies headache(s) ENT: Denies headache(s) Cardiovascular: Cardiovascular: Denies chest pain and Denies dyspnea Respiratory: Respiratory: Denies cough and Denies dyspnea Gastrointestinal: Gastrointestinal: Denies abdominal pain, Denies constipation and Denies vomiting Genitourinary: Genitourinary: Denies dysuria Neurologic: Denies headache(s) and Denies focal weakness Psychiatric: Psychiatric: Reports anxiety Endocrine: Endocrine: Denies fatigue PMFSH Past Medical History Medical History Anxiety Arthritis Bleeding hemorrhoids Chronic constipation Dementia Essential hypertension High blood pressure PAC (premature atrial contraction) PVC (premature ventricular contraction) SVT (supraventricular tachycardia) Vertigo Surgical History No pertinent past surgical history Social History Social History Alcohol intake: never Patient Tobacco Use Status: Never used Tobacco Physical Exam ED Vital Signs: Vital Signs - 24 hr 04/22/23 00:28 Temperature 98.6 F Pulse Rate 81 Respiratory Rate 16 Blood Pressure 174/86 H Pulse Oximetry 99 Oxygen Delivery Method Room Air BMI result Body Mass Index 26.6 Const General: healthy appearing, comfortable, no acute distress, alert and awake Nutritional Appearance: well nourished Orientation/consciousness: patient oriented x3 HENMT Head: Yes normocephalic and Yes atraumatic Eyes Eyelids: Yes eyelids normal Conjunctivae: conjunctivae normal Sclerae: sclerae normal Corneas: corneas normal Pupils: Equal, round and reactive pupils present EOM: EOMs intact bilaterally Neck Neck: Yes full ROM Resp Effort & Inspection: normal respiratory effort, able to speak in complete sentences, no audible wheezes and not labored Auscultation: clear to auscultation bilaterally Cardio Rate: regular rate Rhythm: regular rhythm GI Inspection: No distended Palpation (GI): Soft to palpation, not firm, nontender, no guarding and not rigid Auscultation: normoactive bowel sounds Skin General skin exam: no rashes or lesions noted and elasticity normal Neuro General: patient oriented x3 Cranial nerves: Yes Equal, round and reactive pupils present and Yes Bilaterally intact EOM present Cognition (Neuro): normal cognition Extrem Other: Moving all extremities well without any obvious deformities Medical Decision Making Medical Decision Making MDM Narrative: 77-year-old female presents for evaluation of anxiety. She denies any chest pain, vital signs are stable. Of the patient's prescription monitoring program, it appears to be full that due to her most recent prescription being filled on the and lasting 1 week that her pharmacy would not fill her new prescription until the . Will give her a 1 time dose of Ativan and she will be discharged to follow-up with her PCP. Patient had labs done 2 days ago, so we will not repeat labs today. Differential Diagnosis General anxiety disorder Benzodiazepine dependence Anxiety Hypertension Discharge Plan Discharge Clinical Impression: Generalized anxiety disorder with panic attacks Patient Disposition: Home, Self-Care Instructions: Anxiety (ED) Additional Instructions: Thank your medications as prescribed Prescriptions: No Action escitalopram oxalate 10 mg tablet 10 mg PO DAILY Qty: 30 1RF metoprolol succinate 50 mg tablet extended release 24 hr 50 mg PO DAILY Qty: 90 2RF aspirin 81 mg tablet,delayed release (DR/EC) 81 mg PO BEDTIME Qty: 90 2RF polyethylene glycol 3350 [Miralax] 17 gram/dose powder 17 g PO DAILY PRN (Reason: constipation) Qty: 238 0RF lisinopril 40 mg tablet 40 mg PO QPM Qty: 90 3RF acetaminophen 325 mg capsule 325 mg PO QID PRN (Reason: fever or pain) Qty: 30 0RF melatonin 10 mg tablet extended release 10 mg PO .nightly Qty: 5 0RF metoprolol succinate 50 mg tablet extended release 24 hr 50 mg PO DAILY Qty: 14 0RF ciprofloxacin-dexamethasone [Ciprodex] 0.3-0.1 % drops,suspension 4 drp otic (ears) BID 7 Days 0RF alprazolam 0.5 mg Tablet 0.5 mg PO TID PRN (Reason: Anxiety) hydroxyzine HCl 50 mg Tablet 50 mg PO TID PRN (Reason: Anxiety) mirtazapine 45 mg Tablet 45 mg PO BEDTIME multivitamin Capsule 1 cap PO DAILY sertraline 50 mg Tablet 50 mg PO BEDTIME aripiprazole 2 mg Tablet 2 mg PO BEDTIME cholecalciferol (vitamin D3) 25 mcg (1,000 unit) Tablet 25 mcg PO BID omeprazole 20 mg Tablet,Delayed Release (Dr/Ec) 20 mg PO DAILY linaclotide 145 mcg Capsule 145 mcg PO DAILY diphenhydramine HCl [Benadryl] 25 mg capsule 25 mg PO BEDTIME Qty: 7 0RF cefdinir 300 mg capsule 300 mg PO BID 10 Days Qty: 20 0RF ondansetron HCl [Zofran] 4 mg tablet 4 mg PO Q8H PRN (Reason: nausea and vomiting) Qty: 14 0RF cefuroxime axetil 500 mg tablet 500 mg PO BID 7 Days Qty: 14 0RF meclizine 25 mg tablet 25 mg PO TID PRN (Reason: dizziness) Qty: 10 0RF levofloxacin 500 mg tablet 500 mg PO DAILY 7 Days Qty: 7 0RF cefuroxime axetil 500 mg tablet 500 mg PO BID 10 Days Qty: 20 0RF alprazolam 0.25 mg tablet 0.25 mg PO QID Qty: 7 0RF levofloxacin 500 mg tablet 500 mg PO DAILY Qty: 6 0RF Rx Instructions: start on 08/26 ofloxacin 0.3 % drops 10 drp otic (ears) DAILY 7 Days Qty: 5 0RF Rx Instructions: can substitute eye drops if necessary hydrocortisone 2.5 % cream with perineal applicator 1 appl NM BEDTIME PRN (Reason: hemorrhoids) Qty: 30 0RF Hemorrhoidal(PE-min oil-emma) 0.25-14-74.9 % ointment 1 appl NM BID PRN (Reason: hemorrhoids) Qty: 56 0RF polyethylene glycol 3350 [Miralax] 17 gram/dose powder 17 g PO BID Qty: 119 0RF docusate sodium [Colace] 100 mg capsule 100 mg PO BID PRN (Reason: Constipation) Qty: 14 0RF ofloxacin 0.3 % drops 5 drp otic (ear) left BID 7 Days Qty: 5 0RF alprazolam 0.25 mg tablet 0.25 mg PO TID PRN (Reason: anxiety) Qty: 7 0RF alprazolam [Xanax] 0.5 mg tablet 0.5 mg PO BEDTIME PRN (Reason: anxiety) Qty: 7 0RF alprazolam 0.25 mg tablet 0.25 mg PO TID PRN (Reason: anxiety) Qty: 3 0RF Calmoseptine 0.44-20.6 % ointment 1 appl topical QID PRN (Reason: skin irritation) Qty: 113 0RF magnesium citrate Solution 150 ml PO DAILY PRN (Reason: constipation) Qty: 296 0RF Rx Instructions: take only when needed for constipation hydrocortisone acetate [Anucort-HC] 25 mg suppository 25 mg NM BID Qty: 12 3RF zolpidem [Ambien] 5 mg tablet 5 mg PO BEDTIME PRN (Reason: sleep) Qty: 2 0RF zolpidem [Ambien] 5 mg tablet 5 mg PO BEDTIME PRN (Reason: sleep) Qty: 2 0RF
[2023-04-22] MEDS: LORazepam 0.5 MG TABLET PO (00:38)
[2023-04-22] MEDS: Ondansetron ODT 4 MG TAB.RAPDIS TRANSLINGU (00:46)
--- NOTE | 2023-04-22 01:39 | PC.NURSE ---
pt a&o, no sob or chest pain, Reviewed discharge instructions with pt, pt verbalized understanding.
== END 2023-04-22 01:41 | disposition home or self-care (01) ==
PROVIDERS: Emergency Provider Emergency Medicine Emergency Medical Services
DX: F41.1 Generalized anxiety disorder (principal); F43.0 Acute stress reaction; Z91.148 Patient's other noncompliance with medication regimen for other reason; Z79.899 Other long term (current) drug therapy
CPT/HCPCS: 99284

== ENCOUNTER 2023-04-28 22:36 | Emergency (ER) | payer OTHER, SELFPAY ==
[2023-04-28 23:29] VITALS: BP 147/73; BP 153/78; PULSE 73; PULSE 75; RESP 20; TEMP 36.7; O2SAT 98; BMI 26.6
--- NOTE | 2023-04-29 02:06 | ED_ITS ---
HPI - Anxiety General Chief Complaint: Anxiety Stated Complaint: anxiety about running out of meds per ems Time Seen by Provider: 04/29/23 01:12 Source: patient Mode of arrival: EMS Limitations: no limitations History of Present Illness HPI narrative: Patient comes emergency room complaining of anxiety. Patient states that she is extremely anxious, she will have her medications refilled this morning, patient requesting a 1 time dose here in the emergency room. Patient denies any suicidal homicidal ideation. Related Data Home Medications Medication Instructions Recorded Confirmed alprazolam 0.5 mg tablet 0.5 mg PO TID PRN Anxiety 08/09/20 02/06/23 aripiprazole 2 mg tablet 2 mg PO BEDTIME 08/09/20 02/06/23 cholecalciferol (vitamin D3) 25 25 mcg PO BID 08/09/20 02/06/23 mcg (1,000 unit) tablet hydroxyzine HCl 50 mg tablet 50 mg PO TID PRN Anxiety 08/09/20 02/06/23 linaclotide 145 mcg capsule 145 mcg PO DAILY 08/09/20 02/06/23 mirtazapine 45 mg tablet 45 mg PO BEDTIME 08/09/20 02/06/23 multivitamin 1 cap PO DAILY 08/09/20 02/06/23 omeprazole 20 mg tablet,delayed 20 mg PO DAILY 08/09/20 02/06/23 release sertraline 50 mg tablet 50 mg PO BEDTIME 08/09/20 02/06/23 Previous Rx's Medication Instructions Recorded escitalopram oxalate 10 mg tablet 10 mg PO DAILY #30 tabs 09/06/20 acetaminophen 325 mg capsule 325 mg PO QID PRN fever or pain 09/16/20 #30 caps aspirin 81 mg tablet,delayed 81 mg PO BEDTIME #90 tabs 09/28/20 release metoprolol succinate 50 mg 50 mg PO DAILY #90 tabs 09/28/20 tablet,extended release 24 hr menthol 0.44 %-zinc oxide 20.6 % 1 appl topical QID PRN skin 12/13/20 topical ointment (Calmoseptine) irritation #113 grams magnesium citrate 150 ml PO DAILY PRN constipation 12/14/20 #296 mL diphenhydramine HCl 25 mg capsule 25 mg PO BEDTIME insomnia #7 caps 12/25/20 (Benadryl) melatonin 10 mg tablet,extended 10 mg PO .nightly #5 tabs 01/07/21 release cefdinir 300 mg capsule 300 mg PO BID Otitis media 10 days 04/14/21 #20 caps ondansetron HCl 4 mg tablet 4 mg PO Q8H PRN nausea and 04/14/21 (Zofran) vomiting #14 tabs metoprolol succinate 50 mg 50 mg PO DAILY #14 tabs 05/22/21 tablet,extended release 24 hr ciprofloxacin 0.3 %-dexamethasone 4 drp otic (ears) BID 7 days 05/26/21 0.1 % ear drops,suspension (Ciprodex) polyethylene glycol 3350 17 17 g PO DAILY PRN constipation 07/31/21 gram/dose oral powder (Miralax) #238 grams hydrocortisone acetate 25 mg 25 mg [place] BID #12 ea 08/01/21 rectal suppository (Anucort-HC) cefuroxime axetil 500 mg tablet 500 mg PO BID 7 days #14 tabs 09/01/21 meclizine 25 mg tablet 25 mg PO TID PRN dizziness #10 tabs 09/01/21 zolpidem 5 mg tablet (Ambien) 5 mg PO BEDTIME PRN sleep #2 tabs 10/29/21 zolpidem 5 mg tablet (Ambien) 5 mg PO BEDTIME PRN sleep #2 tabs 10/29/21 lisinopril 40 mg tablet 40 mg PO QPM #90 tabs 06/06/22 levofloxacin 500 mg tablet 500 mg PO DAILY 7 days #7 tabs 07/23/22 levofloxacin 500 mg tablet 500 mg PO DAILY #6 tabs 08/25/22 ofloxacin 0.3 % ear drops 10 drp otic (ears) DAILY 7 days #5 08/25/22 mL hydrocortisone 2.5 % topical cream 1 appl OH BEDTIME PRN hemorrhoids 09/20/22 with perineal applicator #30 grams docusate sodium 100 mg capsule 100 mg PO BID PRN Constipation #14 12/06/22 (Colace) caps phenylephrine 0.25 %-mineral oil 1 appl OH BID PRN hemorrhoids #56 12/06/22 14 %-petrolatm 74.9 % rectal grams ointment (Hemorrhoidal(phenyleph-min oil-petrolat)) polyethylene glycol 3350 17 17 g PO BID #119 grams 12/06/22 gram/dose oral powder (Miralax) cefuroxime axetil 500 mg tablet 500 mg PO BID 10 days #20 tabs 12/16/22 alprazolam 0.25 mg tablet 0.25 mg PO QID #7 tabs 01/04/23 ofloxacin 0.3 % ear drops 5 drp otic (ear) left BID 7 days 01/06/23 #5 mL alprazolam 0.25 mg tablet 0.25 mg PO TID PRN anxiety #7 tabs 01/11/23 alprazolam 0.25 mg tablet 0.25 mg PO TID PRN anxiety #3 tabs 02/02/23 alprazolam 0.5 mg tablet (Xanax) 0.5 mg PO BEDTIME PRN anxiety #7 04/20/23 tabs Allergies Allergy/AdvReac Type Severity Reaction Status Date / Time penicillin G [Penicillin G] Allergy Severe ITCHY/RASH Verified 03/17/23 04:37 Sulfa (Sulfonamide Allergy Severe ITCHY,RASH, Verified 03/17/23 04:37 Antibiotics) rash [Sulfa (Sulfonamides)] trimethoprim [From Bactrim] Allergy Severe HIVES Verified 03/17/23 04:37 penicillin V Allergy Unknown rash Verified 03/17/23 04:37 sulfacetamide Allergy Unknown unknown Verified 03/17/23 04:37 [From Sulfacet-R] sulfur [From Sulfacet-R] Allergy Unknown unknown Verified 03/17/23 04:37 Review of Systems Review of Systems: Constitutional : No Weight loss, No Fever, No Chills, No Night Sweats, No Fatigue, No Malaise ENT/Mouth : No Hearing loss, No Ear Pain, No Nasal Congestion, No Sinus Pain, No Hoarseness, No sore throat, No Rhinorrhea, No Swallowing Difficulty Eyes: No Eye Pain, No Swelling, No Redness, No Foreign Body, No Discharge, No Vision Changes Cardiovascular : No Chest Pain, No SOB, No Dyspnea on Exertion, No Orthopnea, No Edema, No Palpitations Respiratory : No Cough, No Sputum, No Wheezing, No Smoke Exposure, No Dyspnea Gastrointestinal : No Nausea, No Vomiting, No Diarrhea, No Constipation, No abdominal Pain, No Hematochezia, No Melena Genitourinary : no irregular bleeding, No Dysuria, No Urinary Frequency, No Hematuria, No Urinary Incontinence, No Urgency, No Flank Pain, No Urinary Flow Changes, No Hesitancy Musculoskeletal : No joint pain, No Myalgias, No Joint Swelling Skin : No Skin Lesions, No rash Neuro : No Weakness, No Numbness, No Paresthesias, No Loss of Consciousness, No Dizziness, No Headache Psych : Complaining of Anxiety/Panic, No Depression, No SI/HI/AH/VH, No Social Issues, Heme/Lymph: No Bruising, No Bleeding,No Lymphadenopathy Endocrine : No Polyuria, No Polydipsia, No Temperature Intolerance [facility] Past Medical History Medical History Anxiety Arthritis Bleeding hemorrhoids Chronic constipation Dementia Essential hypertension High blood pressure PAC (premature atrial contraction) PVC (premature ventricular contraction) SVT (supraventricular tachycardia) Vertigo Surgical History No pertinent past surgical history Social History Social History Alcohol intake: never Patient Tobacco Use Status: Never used Tobacco Advance Directives: No Advance Directives Information Provided: Yes Physical Exam Vital Signs: Vital Signs: Last Vital Signs Temp 98.0 F 04/28/23 23:29 Pulse 73 04/28/23 23:29 Resp 20 04/28/23 23:29 BP 153/78 H 04/28/23 23:29 Pulse Ox 98 04/28/23 23:29 O2 Del Method Room Air 04/28/23 23:29 BMI result Body Mass Index 26.6 Const: Other: Appearance: Alert. Oriented X3. No acute distress. Eyes: Pupils equal, round and reactive to light. ENT: Pharynx normal. Neck: Normal inspection. Neck supple. No lymph nodes noted. No crepitus CVS: Normal heart rate and rhythm. Pulses normal. Normal S1 and S2 Respiratory: No respiratory distress. Breath sounds normal. No Wheezing. No rales Abdomen: Soft and nontender. No rigidity. No distention. Skin: Skin warm and dry. Normal skin color. Normal skin turgor. Extremities: No lower extremity edema. No Lacerations. No Rash Neuro: Oriented X 3. No motor deficit. No sensory deficit. Moving all extremities. No slurred speech. CN 2 through 12 grossly intact Psych: calm, cooperative, normal affect Medical Decision Making Medical Decision Making MDM Narrative: -patient was given 1 dose of 1 mg Ativan. Patient will follow-up with the primary care physician. Discharge Plan Discharge Clinical Impression: Acute anxiety Patient Disposition: Home, Self-Care Instructions: Anxiety (ED) Additional Instructions: Please follow-up with your primary care physician tomorrow. If you have any worsening or new symptoms, please return to the emergency room or call 911 Prescriptions: No Action escitalopram oxalate 10 mg tablet 10 mg PO DAILY Qty: 30 1RF metoprolol succinate 50 mg tablet extended release 24 hr 50 mg PO DAILY Qty: 90 2RF aspirin 81 mg tablet,delayed release (DR/EC) 81 mg PO BEDTIME Qty: 90 2RF polyethylene glycol 3350 [Miralax] 17 gram/dose powder 17 g PO DAILY PRN (Reason: constipation) Qty: 238 0RF lisinopril 40 mg tablet 40 mg PO QPM Qty: 90 3RF acetaminophen 325 mg capsule 325 mg PO QID PRN (Reason: fever or pain) Qty: 30 0RF melatonin 10 mg tablet extended release 10 mg PO .nightly Qty: 5 0RF metoprolol succinate 50 mg tablet extended release 24 hr 50 mg PO DAILY Qty: 14 0RF ciprofloxacin-dexamethasone [Ciprodex] 0.3-0.1 % drops,suspension 4 drp otic (ears) BID 7 Days 0RF alprazolam 0.5 mg Tablet 0.5 mg PO TID PRN (Reason: Anxiety) hydroxyzine HCl 50 mg Tablet 50 mg PO TID PRN (Reason: Anxiety) mirtazapine 45 mg Tablet 45 mg PO BEDTIME multivitamin Capsule 1 cap PO DAILY sertraline 50 mg Tablet 50 mg PO BEDTIME aripiprazole 2 mg Tablet 2 mg PO BEDTIME cholecalciferol (vitamin D3) 25 mcg (1,000 unit) Tablet 25 mcg PO BID omeprazole 20 mg Tablet,Delayed Release (Dr/Ec) 20 mg PO DAILY linaclotide 145 mcg Capsule 145 mcg PO DAILY diphenhydramine HCl [Benadryl] 25 mg capsule 25 mg PO BEDTIME Qty: 7 0RF cefdinir 300 mg capsule 300 mg PO BID 10 Days Qty: 20 0RF ondansetron HCl [Zofran] 4 mg tablet 4 mg PO Q8H PRN (Reason: nausea and vomiting) Qty: 14 0RF cefuroxime axetil 500 mg tablet 500 mg PO BID 7 Days Qty: 14 0RF meclizine 25 mg tablet 25 mg PO TID PRN (Reason: dizziness) Qty: 10 0RF levofloxacin 500 mg tablet 500 mg PO DAILY 7 Days Qty: 7 0RF cefuroxime axetil 500 mg tablet 500 mg PO BID 10 Days Qty: 20 0RF alprazolam 0.25 mg tablet 0.25 mg PO QID Qty: 7 0RF levofloxacin 500 mg tablet 500 mg PO DAILY Qty: 6 0RF Rx Instructions: start on 08/26 ofloxacin 0.3 % drops 10 drp otic (ears) DAILY 7 Days Qty: 5 0RF Rx Instructions: can substitute eye drops if necessary hydrocortisone 2.5 % cream with perineal applicator 1 appl OH BEDTIME PRN (Reason: hemorrhoids) Qty: 30 0RF Hemorrhoidal(PE-min oil-emma) 0.25-14-74.9 % ointment 1 appl OH BID PRN (Reason: hemorrhoids) Qty: 56 0RF polyethylene glycol 3350 [Miralax] 17 gram/dose powder 17 g PO BID Qty: 119 0RF docusate sodium [Colace] 100 mg capsule 100 mg PO BID PRN (Reason: Constipation) Qty: 14 0RF ofloxacin 0.3 % drops 5 drp otic (ear) left BID 7 Days Qty: 5 0RF alprazolam 0.25 mg tablet 0.25 mg PO TID PRN (Reason: anxiety) Qty: 7 0RF alprazolam [Xanax] 0.5 mg tablet 0.5 mg PO BEDTIME PRN (Reason: anxiety) Qty: 7 0RF alprazolam 0.25 mg tablet 0.25 mg PO TID PRN (Reason: anxiety) Qty: 3 0RF Calmoseptine 0.44-20.6 % ointment 1 appl topical QID PRN (Reason: skin irritation) Qty: 113 0RF magnesium citrate Solution 150 ml PO DAILY PRN (Reason: constipation) Qty: 296 0RF Rx Instructions: take only when needed for constipation hydrocortisone acetate [Anucort-HC] 25 mg suppository 25 mg [place] BID Qty: 12 3RF zolpidem [Ambien] 5 mg tablet 5 mg PO BEDTIME PRN (Reason: sleep) Qty: 2 0RF zolpidem [Ambien] 5 mg tablet 5 mg PO BEDTIME PRN (Reason: sleep) Qty: 2 0RF
[2023-04-29] MEDS: LORazepam 1 MG TABLET PO (02:25)
--- NOTE | 2023-04-29 02:30 | PC.NURSE ---
pt a&o, denies any sob or chest pain, medicated per Mar, will continue to monitor at this time, call ann in place
[2023-04-29 02:35] VITALS: BP 165/77; PULSE 75; RESP 17; TEMP 36.8; O2SAT 99
--- NOTE | 2023-04-29 03:01 | PC.NURSE ---
Pt a&o, no sob or chest pain this time, no sign of distress, Reviewed discharge instructions with pt, pt verbalized understanding.
== END 2023-04-29 03:02 | disposition home or self-care (01) ==
PROVIDERS: Emergency Provider Emergency Medicine
DX: F41.1 Generalized anxiety disorder (principal); F43.0 Acute stress reaction; Z79.899 Other long term (current) drug therapy
CPT/HCPCS: 99283; 99284

== ENCOUNTER 2023-05-06 00:13 | Emergency (ER) | payer OTHER, SELFPAY ==
[2023-05-06 00:21] VITALS: BP 183/77; PULSE 81; RESP 20; TEMP 36.6; O2SAT 100; BMI 26.6
[2023-05-06 01:09] VITALS: BP 165/86; PULSE 78; RESP 17; O2SAT 99
[2023-05-06 02:40] VITALS: BP 174/84; PULSE 72; RESP 18; O2SAT 98
--- NOTE | 2023-05-06 02:50 | PC.NURSE ---
On assessment, pt sts feels like there are white, brown and black balls in his head, his marrufo and on his back. On exam, this RN noted some dirt particulates present in head, but found no other foreign substances present.
[2023-05-06 03:30] VITALS: BP 159/83
--- NOTE | 2023-05-06 03:44 | ED.GENADULT ---
HPI - General Adult General Chief complaint: General Medical Stated complaint: HTN Time Seen by Provider: 05/06/23 03:33 Source: patient and EMS Mode of arrival: EMS Limitations: no limitations History of Present Illness HPI narrative: Patient history of anxiety hypertension been here multiple times for anxiety with her patient is slightly high systolic 180 took her metoprolol and amlodipine unavoidable pressure has improved to 159/83 patient feels anxious no chest pain or shortness of breath Related Data Home Medications Medication Instructions Recorded Confirmed alprazolam 0.5 mg tablet 0.5 mg PO TID PRN Anxiety 08/09/20 02/06/23 aripiprazole 2 mg tablet 2 mg PO BEDTIME 08/09/20 02/06/23 cholecalciferol (vitamin D3) 25 25 mcg PO BID 08/09/20 02/06/23 mcg (1,000 unit) tablet hydroxyzine HCl 50 mg tablet 50 mg PO TID PRN Anxiety 08/09/20 02/06/23 linaclotide 145 mcg capsule 145 mcg PO DAILY 08/09/20 02/06/23 mirtazapine 45 mg tablet 45 mg PO BEDTIME 08/09/20 02/06/23 multivitamin 1 cap PO DAILY 08/09/20 02/06/23 omeprazole 20 mg tablet,delayed 20 mg PO DAILY 08/09/20 02/06/23 release sertraline 50 mg tablet 50 mg PO BEDTIME 08/09/20 02/06/23 Previous Rx's Medication Instructions Recorded escitalopram oxalate 10 mg tablet 10 mg PO DAILY #30 tabs 09/06/20 acetaminophen 325 mg capsule 325 mg PO QID PRN fever or pain 09/16/20 #30 caps aspirin 81 mg tablet,delayed 81 mg PO BEDTIME #90 tabs 09/28/20 release metoprolol succinate 50 mg 50 mg PO DAILY #90 tabs 09/28/20 tablet,extended release 24 hr menthol 0.44 %-zinc oxide 20.6 % 1 appl topical QID PRN skin 12/13/20 topical ointment (Calmoseptine) irritation #113 grams magnesium citrate 150 ml PO DAILY PRN constipation 12/14/20 #296 mL diphenhydramine HCl 25 mg capsule 25 mg PO BEDTIME insomnia #7 caps 12/25/20 (Benadryl) melatonin 10 mg tablet,extended 10 mg PO .nightly #5 tabs 01/07/21 release cefdinir 300 mg capsule 300 mg PO BID Otitis media 10 days 04/14/21 #20 caps ondansetron HCl 4 mg tablet 4 mg PO Q8H PRN nausea and 04/14/21 (Zofran) vomiting #14 tabs metoprolol succinate 50 mg 50 mg PO DAILY #14 tabs 05/22/21 tablet,extended release 24 hr ciprofloxacin 0.3 %-dexamethasone 4 drp otic (ears) BID 7 days 05/26/21 0.1 % ear drops,suspension (Ciprodex) polyethylene glycol 3350 17 17 g PO DAILY PRN constipation 07/31/21 gram/dose oral powder (Miralax) #238 grams hydrocortisone acetate 25 mg 25 mg MS BID #12 ea 08/01/21 rectal suppository (Anucort-HC) cefuroxime axetil 500 mg tablet 500 mg PO BID 7 days #14 tabs 09/01/21 meclizine 25 mg tablet 25 mg PO TID PRN dizziness #10 tabs 09/01/21 zolpidem 5 mg tablet (Ambien) 5 mg PO BEDTIME PRN sleep #2 tabs 10/29/21 zolpidem 5 mg tablet (Ambien) 5 mg PO BEDTIME PRN sleep #2 tabs 10/29/21 lisinopril 40 mg tablet 40 mg PO QPM #90 tabs 06/06/22 levofloxacin 500 mg tablet 500 mg PO DAILY 7 days #7 tabs 07/23/22 levofloxacin 500 mg tablet 500 mg PO DAILY #6 tabs 08/25/22 ofloxacin 0.3 % ear drops 10 drp otic (ears) DAILY 7 days #5 08/25/22 mL hydrocortisone 2.5 % topical cream 1 appl MS BEDTIME PRN hemorrhoids 09/20/22 with perineal applicator #30 grams docusate sodium 100 mg capsule 100 mg PO BID PRN Constipation #14 12/06/22 (Colace) caps phenylephrine 0.25 %-mineral oil 1 appl MS BID PRN hemorrhoids #56 12/06/22 14 %-petrolatm 74.9 % rectal grams ointment (Hemorrhoidal(phenyleph-min oil-petrolat)) polyethylene glycol 3350 17 17 g PO BID #119 grams 12/06/22 gram/dose oral powder (Miralax) cefuroxime axetil 500 mg tablet 500 mg PO BID 10 days #20 tabs 12/16/22 alprazolam 0.25 mg tablet 0.25 mg PO QID #7 tabs 01/04/23 ofloxacin 0.3 % ear drops 5 drp otic (ear) left BID 7 days 01/06/23 #5 mL alprazolam 0.25 mg tablet 0.25 mg PO TID PRN anxiety #7 tabs 01/11/23 alprazolam 0.25 mg tablet 0.25 mg PO TID PRN anxiety #3 tabs 02/02/23 alprazolam 0.5 mg tablet (Xanax) 0.5 mg PO BEDTIME PRN anxiety #7 04/20/23 tabs Allergies Allergy/AdvReac Type Severity Reaction Status Date / Time penicillin G [Penicillin G] Allergy Severe ITCHY/RASH Verified 05/06/23 00:20 Sulfa (Sulfonamide Allergy Severe ITCHY,RASH, Verified 05/06/23 00:20 Antibiotics) rash [Sulfa (Sulfonamides)] trimethoprim [From Bactrim] Allergy Severe HIVES Verified 05/06/23 00:20 penicillin V Allergy Unknown rash Verified 05/06/23 00:20 sulfacetamide Allergy Unknown unknown Verified 05/06/23 00:20 [From Sulfacet-R] sulfur [From Sulfacet-R] Allergy Unknown unknown Verified 05/06/23 00:20 Review of Systems Review of Systems: Yes all other systems are reviewed and are negative PMFSH Past Medical History Medical History Anxiety Arthritis Bleeding hemorrhoids Chronic constipation Dementia Essential hypertension High blood pressure PAC (premature atrial contraction) PVC (premature ventricular contraction) SVT (supraventricular tachycardia) Vertigo Surgical History No pertinent past surgical history Social History Social History Alcohol intake: never Patient Tobacco Use Status: Never used Tobacco Smoked in Last 30 Days: No Use of substances other than those prescribed or required for medical reasons: No Advance Directives: No Advance Directives Information Provided: Yes Physical Exam ED Vital Signs: Vital Signs - 24 hr 05/06/23 00:21 05/06/23 01:09 05/06/23 02:40 Temperature 98 F Pulse Rate 81 78 72 Respiratory Rate 20 17 18 Blood Pressure 183/77 H 165/86 H 174/84 H Pulse Oximetry 100 99 98 Oxygen Delivery Method Room Air Room Air 05/06/23 03:30 Temperature Pulse Rate Respiratory Rate Blood Pressure 159/83 H Pulse Oximetry Oxygen Delivery Method BMI result Body Mass Index 26.6 Appearance: Alert. Oriented X3. No acute distress. Anxious Eyes: PERRLA, No Nystagmus ENT: Pharynx normal. Oral Mucosa moist Neck: Normal inspection. Neck supple. CVS: Normal heart rate and rhythm. Pulses normal. Respiratory: No respiratory distress. Equal air entry bilateral, no wheezing/rales/rhonchi Abdomen: Soft and nontender. Bowel sounds are present, no mass palpable, no CVA tenderness Skin: Skin warm and dry. Normal skin color. Normal skin turgor. Extremities: No lower extremity edema. No calf tenderness Neuro: Oriented X 3. No motor deficit. No sensory deficit.No cerebellar signs , cranial nerves II-XII intact Medications Administered Discontinued Medications Generic Name Dose Route Start Last Admin Trade Name Freq PRN Reason Stop Dose Admin Alprazolam 0.25 mg 05/06/23 03:42 05/06/23 03:49 Alprazolam 0.25 Mg Tablet PO 05/06/23 03:43 0.25 mg ONCE ONE Administration Medical Decision Making Medical Decision Making [facility] Narrative: Patient with anxiety with frequent ED visits vitals improved after alprazolam Discharge Plan Discharge Clinical Impression: Generalized anxiety disorder with panic attacks Patient Disposition: Home, Self-Care Instructions: Anxiety (ED) Additional Instructions: Take your medication as prescribed by your PCP and follow-up as needed Prescriptions: No Action escitalopram oxalate 10 mg tablet 10 mg PO DAILY Qty: 30 1RF metoprolol succinate 50 mg tablet extended release 24 hr 50 mg PO DAILY Qty: 90 2RF aspirin 81 mg tablet,delayed release (DR/EC) 81 mg PO BEDTIME Qty: 90 2RF polyethylene glycol 3350 [Miralax] 17 gram/dose powder 17 g PO DAILY PRN (Reason: constipation) Qty: 238 0RF lisinopril 40 mg tablet 40 mg PO QPM Qty: 90 3RF acetaminophen 325 mg capsule 325 mg PO QID PRN (Reason: fever or pain) Qty: 30 0RF melatonin 10 mg tablet extended release 10 mg PO .nightly Qty: 5 0RF metoprolol succinate 50 mg tablet extended release 24 hr 50 mg PO DAILY Qty: 14 0RF ciprofloxacin-dexamethasone [Ciprodex] 0.3-0.1 % drops,suspension 4 drp otic (ears) BID 7 Days 0RF alprazolam 0.5 mg Tablet 0.5 mg PO TID PRN (Reason: Anxiety) hydroxyzine HCl 50 mg Tablet 50 mg PO TID PRN (Reason: Anxiety) mirtazapine 45 mg Tablet 45 mg PO BEDTIME multivitamin Capsule 1 cap PO DAILY sertraline 50 mg Tablet 50 mg PO BEDTIME aripiprazole 2 mg Tablet 2 mg PO BEDTIME cholecalciferol (vitamin D3) 25 mcg (1,000 unit) Tablet 25 mcg PO BID omeprazole 20 mg Tablet,Delayed Release (Dr/Ec) 20 mg PO DAILY linaclotide 145 mcg Capsule 145 mcg PO DAILY diphenhydramine HCl [Benadryl] 25 mg capsule 25 mg PO BEDTIME Qty: 7 0RF cefdinir 300 mg capsule 300 mg PO BID 10 Days Qty: 20 0RF ondansetron HCl [Zofran] 4 mg tablet 4 mg PO Q8H PRN (Reason: nausea and vomiting) Qty: 14 0RF cefuroxime axetil 500 mg tablet 500 mg PO BID 7 Days Qty: 14 0RF meclizine 25 mg tablet 25 mg PO TID PRN (Reason: dizziness) Qty: 10 0RF levofloxacin 500 mg tablet 500 mg PO DAILY 7 Days Qty: 7 0RF cefuroxime axetil 500 mg tablet 500 mg PO BID 10 Days Qty: 20 0RF alprazolam 0.25 mg tablet 0.25 mg PO QID Qty: 7 0RF levofloxacin 500 mg tablet 500 mg PO DAILY Qty: 6 0RF Rx Instructions: start on 08/26 ofloxacin 0.3 % drops 10 drp otic (ears) DAILY 7 Days Qty: 5 0RF Rx Instructions: can substitute eye drops if necessary hydrocortisone 2.5 % cream with perineal applicator 1 appl MS BEDTIME PRN (Reason: hemorrhoids) Qty: 30 0RF Hemorrhoidal(PE-min oil-emma) 0.25-14-74.9 % ointment 1 appl MS BID PRN (Reason: hemorrhoids) Qty: 56 0RF polyethylene glycol 3350 [Miralax] 17 gram/dose powder 17 g PO BID Qty: 119 0RF docusate sodium [Colace] 100 mg capsule 100 mg PO BID PRN (Reason: Constipation) Qty: 14 0RF ofloxacin 0.3 % drops 5 drp otic (ear) left BID 7 Days Qty: 5 0RF alprazolam 0.25 mg tablet 0.25 mg PO TID PRN (Reason: anxiety) Qty: 7 0RF alprazolam [Xanax] 0.5 mg tablet 0.5 mg PO BEDTIME PRN (Reason: anxiety) Qty: 7 0RF alprazolam 0.25 mg tablet 0.25 mg PO TID PRN (Reason: anxiety) Qty: 3 0RF Calmoseptine 0.44-20.6 % ointment 1 appl topical QID PRN (Reason: skin irritation) Qty: 113 0RF magnesium citrate Solution 150 ml PO DAILY PRN (Reason: constipation) Qty: 296 0RF Rx Instructions: take only when needed for constipation hydrocortisone acetate [Anucort-HC] 25 mg suppository 25 mg MS BID Qty: 12 3RF zolpidem [Ambien] 5 mg tablet 5 mg PO BEDTIME PRN (Reason: sleep) Qty: 2 0RF zolpidem [Ambien] 5 mg tablet 5 mg PO BEDTIME PRN (Reason: sleep) Qty: 2 0RF Discharge Date/Time: 05/06/23 03:52
[2023-05-06] MEDS: ALPRAZolam 0.25 MG TABLET PO (03:49)
== END 2023-05-06 03:52 | disposition home or self-care (01) ==
PROVIDERS: Emergency Provider Internal Medicine; PCP Internal Medicine Geriatric Medicine
DX: F41.1 Generalized anxiety disorder (principal); F43.0 Acute stress reaction; F41.0 Panic disorder [episodic paroxysmal anxiety]
CPT/HCPCS: 99283; 99284

== ENCOUNTER 2023-05-18 09:28 | Emergency (ER) | payer OTHER, SELFPAY ==
[2023-05-18 09:46] VITALS: BP 164/81; PULSE 74; RESP 16; TEMP 36.6; O2SAT 97; BMI 26.2
--- NOTE | 2023-05-18 11:50 | ED.GENADULT ---
HPI - General Adult General Chief complaint: General Medical Stated complaint: left ear pain Time Seen by Provider: 05/18/23 11:45 Source: patient Mode of arrival: ambulatory Limitations: no limitations History of Present Illness HPI narrative: 77 yo female here with complaints of needing refill for her blood pressure medication (metorpolol ER 50mg daily). She was visiting her sister and left her pill bottle there. She cannot call her PCP because it is the weekend. She feels her blood pressure is elevated. She also is requesting xanax and something like ambien to help her sleep. She denies SI/HI. Related Data Home Medications Medication Instructions Recorded Confirmed alprazolam 0.5 mg tablet 0.5 mg PO TID PRN Anxiety 08/09/20 02/06/23 aripiprazole 2 mg tablet 2 mg PO BEDTIME 08/09/20 02/06/23 cholecalciferol (vitamin D3) 25 25 mcg PO BID 08/09/20 02/06/23 mcg (1,000 unit) tablet hydroxyzine HCl 50 mg tablet 50 mg PO TID PRN Anxiety 08/09/20 02/06/23 linaclotide 145 mcg capsule 145 mcg PO DAILY 08/09/20 02/06/23 mirtazapine 45 mg tablet 45 mg PO BEDTIME 08/09/20 02/06/23 multivitamin 1 cap PO DAILY 08/09/20 02/06/23 omeprazole 20 mg tablet,delayed 20 mg PO DAILY 08/09/20 02/06/23 release sertraline 50 mg tablet 50 mg PO BEDTIME 08/09/20 02/06/23 Previous Rx's Medication Instructions Recorded escitalopram oxalate 10 mg tablet 10 mg PO DAILY #30 tabs 09/06/20 acetaminophen 325 mg capsule 325 mg PO QID PRN fever or pain 09/16/20 #30 caps aspirin 81 mg tablet,delayed 81 mg PO BEDTIME #90 tabs 09/28/20 release metoprolol succinate 50 mg 50 mg PO DAILY #90 tabs 09/28/20 tablet,extended release 24 hr menthol 0.44 %-zinc oxide 20.6 % 1 appl topical QID PRN skin 12/13/20 topical ointment (Calmoseptine) irritation #113 grams magnesium citrate 150 ml PO DAILY PRN constipation 12/14/20 #296 mL diphenhydramine HCl 25 mg capsule 25 mg PO BEDTIME insomnia #7 caps 12/25/20 (Benadryl) melatonin 10 mg tablet,extended 10 mg PO .nightly #5 tabs 01/07/21 release cefdinir 300 mg capsule 300 mg PO BID Otitis media 10 days 04/14/21 #20 caps ondansetron HCl 4 mg tablet 4 mg PO Q8H PRN nausea and 04/14/21 (Zofran) vomiting #14 tabs metoprolol succinate 50 mg 50 mg PO DAILY #14 tabs 05/22/21 tablet,extended release 24 hr ciprofloxacin 0.3 %-dexamethasone 4 drp otic (ears) BID 7 days 05/26/21 0.1 % ear drops,suspension (Ciprodex) polyethylene glycol 3350 17 17 g PO DAILY PRN constipation 07/31/21 gram/dose oral powder (Miralax) #238 grams hydrocortisone acetate 25 mg 25 mg [place] BID #12 ea 08/01/21 rectal suppository (Anucort-HC) cefuroxime axetil 500 mg tablet 500 mg PO BID 7 days #14 tabs 09/01/21 meclizine 25 mg tablet 25 mg PO TID PRN dizziness #10 tabs 09/01/21 zolpidem 5 mg tablet (Ambien) 5 mg PO BEDTIME PRN sleep #2 tabs 10/29/21 zolpidem 5 mg tablet (Ambien) 5 mg PO BEDTIME PRN sleep #2 tabs 10/29/21 lisinopril 40 mg tablet 40 mg PO QPM #90 tabs 06/06/22 levofloxacin 500 mg tablet 500 mg PO DAILY 7 days #7 tabs 07/23/22 levofloxacin 500 mg tablet 500 mg PO DAILY #6 tabs 08/25/22 ofloxacin 0.3 % ear drops 10 drp otic (ears) DAILY 7 days #5 08/25/22 mL hydrocortisone 2.5 % topical cream 1 appl [place] BEDTIME PRN hemorrhoids 09/20/22 with perineal applicator #30 grams docusate sodium 100 mg capsule 100 mg PO BID PRN Constipation #14 12/06/22 (Colace) caps phenylephrine 0.25 %-mineral oil 1 appl [place] BID PRN hemorrhoids #56 12/06/22 14 %-petrolatm 74.9 % rectal grams ointment (Hemorrhoidal(phenyleph-min oil-petrolat)) polyethylene glycol 3350 17 17 g PO BID #119 grams 12/06/22 gram/dose oral powder (Miralax) cefuroxime axetil 500 mg tablet 500 mg PO BID 10 days #20 tabs 12/16/22 alprazolam 0.25 mg tablet 0.25 mg PO QID #7 tabs 01/04/23 ofloxacin 0.3 % ear drops 5 drp otic (ear) left BID 7 days 01/06/23 #5 mL alprazolam 0.25 mg tablet 0.25 mg PO TID PRN anxiety #7 tabs 01/11/23 alprazolam 0.25 mg tablet 0.25 mg PO TID PRN anxiety #3 tabs 02/02/23 alprazolam 0.5 mg tablet (Xanax) 0.5 mg PO BEDTIME PRN anxiety #7 04/20/23 tabs metoprolol succinate 50 mg 50 mg PO DAILY #7 tabs 05/18/23 tablet,extended release 24 hr Allergies Allergy/AdvReac Type Severity Reaction Status Date / Time penicillin G [Penicillin G] Allergy Severe ITCHY/RASH Verified 05/06/23 00:20 Sulfa (Sulfonamide Allergy Severe ITCHY,RASH, Verified 05/06/23 00:20 Antibiotics) rash [Sulfa (Sulfonamides)] trimethoprim [From Bactrim] Allergy Severe HIVES Verified 05/06/23 00:20 penicillin V Allergy Unknown rash Verified 05/06/23 00:20 sulfacetamide Allergy Unknown unknown Verified 05/06/23 00:20 [From Sulfacet-R] sulfur [From Sulfacet-R] Allergy Unknown unknown Verified 05/06/23 00:20 Review of Systems Review of Systems: Yes all other systems are reviewed and are negative Constitutional: Constitutional: Reports no additional constitutional complaints, Denies body ache(s), Denies chills, Denies fever(s), Denies headache(s) and Denies weakness Eyes: Eyes: Reports no additional eye complaints and Denies change in vision ENT: Reports system reviewed and no additional complaints, except as documented, Denies dizziness, Denies headache(s), Denies nasal congestion, Denies nasal discharge and Denies neck pain Cardiovascular: Cardiovascular: Reports no additional cardiovascular complaints, Denies chest pain, Denies leg edema and Denies dyspnea Respiratory: Respiratory: Reports no additional respiratory complaints, Denies cough and Denies dyspnea Gastrointestinal: Gastrointestinal: Reports no additional gastrointestinal complaints, Denies abdominal pain, Denies diarrhea, Denies nausea and Denies vomiting Genitourinary: Genitourinary: Reports no additional female genitourinary complaints and Denies urinary incontinence Musculoskeletal: Musculoskeletal: Reports no additional musculoskeletal complaints, Denies back pain, Denies arthralgias, Denies joint swelling, Denies neck pain, Denies numbness and Denies tingling Integumentary/Breasts: Skin/Breast: Reports system reviewed and no additional complaints, except as docu and Denies rash Neurologic: Reports system reviewed and no additional complaints, except as documented, Denies dizziness, Denies headache(s), Denies numbness, Denies tingling and Denies weakness Psychiatric: Psychiatric: Reports anxiety, Denies homicidal ideation and Denies suicidal ideation PMFSH Past Medical History Attestation statement: The following information was validated with the patient. Source: old records reviewed and nursing notes reviewed Medical History Anxiety Arthritis Bleeding hemorrhoids Chronic constipation Dementia Essential hypertension High blood pressure PAC (premature atrial contraction) PVC (premature ventricular contraction) SVT (supraventricular tachycardia) Vertigo Surgical History No pertinent past surgical history Social History Social History Alcohol intake: never Patient Tobacco Use Status: Never used Tobacco Advance Directives: Yes Advance Directives Information Provided: Yes Advance Directives on File: No Physical Exam ED Vital Signs: Vital Signs - 24 hr 05/18/23 09:46 05/18/23 12:01 Temperature 97.9 F Pulse Rate 74 Respiratory Rate 16 Blood Pressure 164/81 H 170/88 H Pulse Oximetry 97 Oxygen Delivery Method Room Air BMI result Body Mass Index 26.2 Const General: cooperative, healthy appearing, comfortable and no acute distress Orientation/consciousness: patient oriented x3 Limitations: no limitations HENMT Head: Yes normal to inspection Ears: hearing grossly normal bilaterally and TM's normal bilaterally Eyes General: appearance normal, both eyes and all related structures Pupils: Equal, round and reactive pupils present Neck Neck: Yes normal visual inspection and Yes full ROM Chest Chest palpation & inspection: normal inspection of the chest Resp Effort & Inspection: normal respiratory effort Auscultation: clear to auscultation bilaterally Cardio Rate: regular rate Rhythm: regular rhythm Peripheral pulses: Peripheral pulses 2+ throughout GI Inspection: Yes normal to inspection Palpation (GI): Soft to palpation and nontender Skin General skin exam: no rashes or lesions noted Neuro General: patient oriented x3 and moves all extremities Cranial nerves: Yes Equal, round and reactive pupils present Cognition (Neuro): normal cognition Gait exam (Neuro): Normal gait present Medications Administered Discontinued Medications Generic Name Dose Route Start Last Admin Trade Name Freq PRN Reason Stop Dose Admin Metoprolol Succinate 50 mg 05/18/23 11:50 05/18/23 11:59 Metoprolol Succinate Er 50 Mg Tab.Er.24h PO 05/18/23 11:51 50 mg ONCE ONE Administration Protocol Medical Decision Making Medical Decision Making MDM Narrative: 77 yo female here seeking refill for her blood pressure medicine which she left at her sisters house. Also requesting something for anxiety and sleep. Reqesting xanax and ambien. She filled a 7 day supply of xanax on 05/12. She has a psychiatrist who she can call tomorrow. She has no SI/HI. 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 I gave you a seven day supply. Call your PCP for additional dosages. Llame a clark psiquiatra ma?delmy para hablar sobre kelsi medicamentos para la ansiedad y clark deseo de comenzar a bee medicamentos para ayudarlo a dormir. Envi? un resurtido de clark medicamento para la presi?n arterial a clark farmacia, que puede retirar ma?delmy. Te di un suministro para siete d?as. Llame a clark PCP para obtener dosis adicionales. Prescriptions: New metoprolol succinate 50 mg tablet extended release 24 hr 50 mg PO DAILY Qty: 7 0RF No Action escitalopram oxalate 10 mg tablet 10 mg PO DAILY Qty: 30 1RF metoprolol succinate 50 mg tablet extended release 24 hr 50 mg PO DAILY Qty: 90 2RF aspirin 81 mg tablet,delayed release (DR/EC) 81 mg PO BEDTIME Qty: 90 2RF polyethylene glycol 3350 [Miralax] 17 gram/dose powder 17 g PO DAILY PRN (Reason: constipation) Qty: 238 0RF lisinopril 40 mg tablet 40 mg PO QPM Qty: 90 3RF acetaminophen 325 mg capsule 325 mg PO QID PRN (Reason: fever or pain) Qty: 30 0RF melatonin 10 mg tablet extended release 10 mg PO .nightly Qty: 5 0RF metoprolol succinate 50 mg tablet extended release 24 hr 50 mg PO DAILY Qty: 14 0RF ciprofloxacin-dexamethasone [Ciprodex] 0.3-0.1 % drops,suspension 4 drp otic (ears) BID 7 Days 0RF alprazolam 0.5 mg Tablet 0.5 mg PO TID PRN (Reason: Anxiety) hydroxyzine HCl 50 mg Tablet 50 mg PO TID PRN (Reason: Anxiety) mirtazapine 45 mg Tablet 45 mg PO BEDTIME multivitamin Capsule 1 cap PO DAILY sertraline 50 mg Tablet 50 mg PO BEDTIME aripiprazole 2 mg Tablet 2 mg PO BEDTIME cholecalciferol (vitamin D3) 25 mcg (1,000 unit) Tablet 25 mcg PO BID omeprazole 20 mg Tablet,Delayed Release (Dr/Ec) 20 mg PO DAILY linaclotide 145 mcg Capsule 145 mcg PO DAILY diphenhydramine HCl [Benadryl] 25 mg capsule 25 mg PO BEDTIME Qty: 7 0RF cefdinir 300 mg capsule 300 mg PO BID 10 Days Qty: 20 0RF ondansetron HCl [Zofran] 4 mg tablet 4 mg PO Q8H PRN (Reason: nausea and vomiting) Qty: 14 0RF cefuroxime axetil 500 mg tablet 500 mg PO BID 7 Days Qty: 14 0RF meclizine 25 mg tablet 25 mg PO TID PRN (Reason: dizziness) Qty: 10 0RF levofloxacin 500 mg tablet 500 mg PO DAILY 7 Days Qty: 7 0RF cefuroxime axetil 500 mg tablet 500 mg PO BID 10 Days Qty: 20 0RF alprazolam 0.25 mg tablet 0.25 mg PO QID Qty: 7 0RF levofloxacin 500 mg tablet 500 mg PO DAILY Qty: 6 0RF Rx Instructions: start on 08/26 ofloxacin 0.3 % drops 10 drp otic (ears) DAILY 7 Days Qty: 5 0RF Rx Instructions: can substitute eye drops if necessary hydrocortisone 2.5 % cream with perineal applicator 1 appl [place] BEDTIME PRN (Reason: hemorrhoids) Qty: 30 0RF Hemorrhoidal(PE-min oil-emma) 0.25-14-74.9 % ointment 1 appl [place] BID PRN (Reason: hemorrhoids) Qty: 56 0RF polyethylene glycol 3350 [Miralax] 17 gram/dose powder 17 g PO BID Qty: 119 0RF docusate sodium [Colace] 100 mg capsule 100 mg PO BID PRN (Reason: Constipation) Qty: 14 0RF ofloxacin 0.3 % drops 5 drp otic (ear) left BID 7 Days Qty: 5 0RF alprazolam 0.25 mg tablet 0.25 mg PO TID PRN (Reason: anxiety) Qty: 7 0RF alprazolam [Xanax] 0.5 mg tablet 0.5 mg PO BEDTIME PRN (Reason: anxiety) Qty: 7 0RF alprazolam 0.25 mg tablet 0.25 mg PO TID PRN (Reason: anxiety) Qty: 3 0RF Calmoseptine 0.44-20.6 % ointment 1 appl topical QID PRN (Reason: skin irritation) Qty: 113 0RF magnesium citrate Solution 150 ml PO DAILY PRN (Reason: constipation) Qty: 296 0RF Rx Instructions: take only when needed for constipation hydrocortisone acetate [Anucort-HC] 25 mg suppository 25 mg [place] BID Qty: 12 3RF zolpidem [Ambien] 5 mg tablet 5 mg PO BEDTIME PRN (Reason: sleep) Qty: 2 0RF zolpidem [Ambien] 5 mg tablet 5 mg PO BEDTIME PRN (Reason: sleep) Qty: 2 0RF Referrals: Name,MD Nitin [Primary Care Provider] - 1 week Interventions: ED Discharge Assessment Last Done: 05/18/23 12:01 Discharge Date/Time: 05/18/23 12:01
[2023-05-18 12:01] VITALS: BP 170/88
== END 2023-05-18 12:01 | disposition home or self-care (01) ==
PROVIDERS: Emergency Provider Emergency Medicine; PCP Internal Medicine Geriatric Medicine
DX: H92.02 Otalgia, left ear (principal); Z76.0 Encounter for issue of repeat prescription
CPT/HCPCS: 99282

== ENCOUNTER 2023-05-18 14:10 | Emergency (ER) | payer OTHER, SELFPAY ==
[2023-05-18 15:12] VITALS: BP 153/79; PULSE 69; RESP 18; TEMP 36.1; O2SAT 98; BMI 29.8
[2023-05-18 17:39] VITALS: BP 162/84
[2023-05-18 18:11] VITALS: BP 165/82
--- NOTE | 2023-05-18 18:19 | ED.GENADULT ---
HPI - General Adult General Chief complaint: General Medical Stated complaint: JANESSA Palma, High BP (190/84) per EMS Time Seen by Provider: 05/18/23 17:47 Source: patient, EMS and old records reviewed Mode of arrival: EMS Limitations: no limitations History of Present Illness HPI narrative: Three 7-year-old female with history of hypertension, anxiety with panic attacks on chronic benzodiazepines, SVT, hemorrhoids, vertigo and dementia who presents to the ER for evaluation of elevated blood pressure and anxiety. She was seen earlier today, discharge with a new prescription for her metoprolol which she had left her sister's house. She states she took her metoprolol today. She states she has been extra anxious knowing that she missed a dose. She states her blood pressure was 200 at home. Blood pressure 190/84 for EMS. She denies any chest pain. She reports she is shaky and anxious. No headaches or vision changes. Patient had several presentations similar to this. MD complaint: Hypertension and anxiety Onset (ago): unknown Severity: similar to prior episodes Pain Consistency: intermittent Relieving factors: medication Exacerbating factors: none Associated symptoms: denies other symptoms Treatments prior to arrival: none Related Data Home Medications Medication Instructions Recorded Confirmed alprazolam 0.5 mg tablet 0.5 mg PO TID PRN Anxiety 08/09/20 02/06/23 aripiprazole 2 mg tablet 2 mg PO BEDTIME 08/09/20 02/06/23 cholecalciferol (vitamin D3) 25 25 mcg PO BID 08/09/20 02/06/23 mcg (1,000 unit) tablet hydroxyzine HCl 50 mg tablet 50 mg PO TID PRN Anxiety 08/09/20 02/06/23 linaclotide 145 mcg capsule 145 mcg PO DAILY 08/09/20 02/06/23 mirtazapine 45 mg tablet 45 mg PO BEDTIME 08/09/20 02/06/23 multivitamin 1 cap PO DAILY 08/09/20 02/06/23 omeprazole 20 mg tablet,delayed 20 mg PO DAILY 08/09/20 02/06/23 release sertraline 50 mg tablet 50 mg PO BEDTIME 08/09/20 02/06/23 Previous Rx's Medication Instructions Recorded escitalopram oxalate 10 mg tablet 10 mg PO DAILY #30 tabs 09/06/20 acetaminophen 325 mg capsule 325 mg PO QID PRN fever or pain 09/16/20 #30 caps aspirin 81 mg tablet,delayed 81 mg PO BEDTIME #90 tabs 09/28/20 release metoprolol succinate 50 mg 50 mg PO DAILY #90 tabs 09/28/20 tablet,extended release 24 hr menthol 0.44 %-zinc oxide 20.6 % 1 appl topical QID PRN skin 12/13/20 topical ointment (Calmoseptine) irritation #113 grams magnesium citrate 150 ml PO DAILY PRN constipation 12/14/20 #296 mL diphenhydramine HCl 25 mg capsule 25 mg PO BEDTIME insomnia #7 caps 12/25/20 (Benadryl) melatonin 10 mg tablet,extended 10 mg PO .nightly #5 tabs 01/07/21 release cefdinir 300 mg capsule 300 mg PO BID Otitis media 10 days 04/14/21 #20 caps ondansetron HCl 4 mg tablet 4 mg PO Q8H PRN nausea and 04/14/21 (Zofran) vomiting #14 tabs metoprolol succinate 50 mg 50 mg PO DAILY #14 tabs 05/22/21 tablet,extended release 24 hr ciprofloxacin 0.3 %-dexamethasone 4 drp otic (ears) BID 7 days 05/26/21 0.1 % ear drops,suspension (Ciprodex) polyethylene glycol 3350 17 17 g PO DAILY PRN constipation 07/31/21 gram/dose oral powder (Miralax) #238 grams hydrocortisone acetate 25 mg 25 mg GA BID #12 ea 08/01/21 rectal suppository (Anucort-HC) cefuroxime axetil 500 mg tablet 500 mg PO BID 7 days #14 tabs 09/01/21 meclizine 25 mg tablet 25 mg PO TID PRN dizziness #10 tabs 09/01/21 zolpidem 5 mg tablet (Ambien) 5 mg PO BEDTIME PRN sleep #2 tabs 10/29/21 zolpidem 5 mg tablet (Ambien) 5 mg PO BEDTIME PRN sleep #2 tabs 10/29/21 lisinopril 40 mg tablet 40 mg PO QPM #90 tabs 06/06/22 levofloxacin 500 mg tablet 500 mg PO DAILY 7 days #7 tabs 07/23/22 levofloxacin 500 mg tablet 500 mg PO DAILY #6 tabs 08/25/22 ofloxacin 0.3 % ear drops 10 drp otic (ears) DAILY 7 days #5 08/25/22 mL hydrocortisone 2.5 % topical cream 1 appl GA BEDTIME PRN hemorrhoids 09/20/22 with perineal applicator #30 grams docusate sodium 100 mg capsule 100 mg PO BID PRN Constipation #14 12/06/22 (Colace) caps phenylephrine 0.25 %-mineral oil 1 appl GA BID PRN hemorrhoids #56 12/06/22 14 %-petrolatm 74.9 % rectal grams ointment (Hemorrhoidal(phenyleph-min oil-petrolat)) polyethylene glycol 3350 17 17 g PO BID #119 grams 12/06/22 gram/dose oral powder (Miralax) cefuroxime axetil 500 mg tablet 500 mg PO BID 10 days #20 tabs 12/16/22 alprazolam 0.25 mg tablet 0.25 mg PO QID #7 tabs 01/04/23 ofloxacin 0.3 % ear drops 5 drp otic (ear) left BID 7 days 01/06/23 #5 mL alprazolam 0.25 mg tablet 0.25 mg PO TID PRN anxiety #7 tabs 01/11/23 alprazolam 0.25 mg tablet 0.25 mg PO TID PRN anxiety #3 tabs 02/02/23 alprazolam 0.5 mg tablet (Xanax) 0.5 mg PO BEDTIME PRN anxiety #7 04/20/23 tabs metoprolol succinate 50 mg 50 mg PO DAILY #7 tabs 05/18/23 tablet,extended release 24 hr Allergies Allergy/AdvReac Type Severity Reaction Status Date / Time penicillin G [Penicillin G] Allergy Severe ITCHY/RASH Verified 05/18/23 15:12 Sulfa (Sulfonamide Allergy Severe ITCHY,RASH, Verified 05/18/23 15:12 Antibiotics) rash [Sulfa (Sulfonamides)] trimethoprim [From Bactrim] Allergy Severe HIVES Verified 05/18/23 15:12 penicillin V Allergy Unknown rash Verified 05/18/23 15:12 sulfacetamide Allergy Unknown unknown Verified 05/18/23 15:12 [From Sulfacet-R] sulfur [From Sulfacet-R] Allergy Unknown unknown Verified 05/18/23 15:12 Review of Systems Review of Systems: Yes all other systems are reviewed and are negative [facility] Past Medical History Medical History Anxiety Arthritis Bleeding hemorrhoids Chronic constipation Dementia Essential hypertension High blood pressure PAC (premature atrial contraction) PVC (premature ventricular contraction) SVT (supraventricular tachycardia) Vertigo Surgical History No pertinent past surgical history Social History Social History Alcohol intake: never Patient Tobacco Use Status: Never used Tobacco Smoked in Last 30 Days: No Use of substances other than those prescribed or required for medical reasons: No Advance Directives: No Advance Directives Information Provided: No Physical Exam ED Vital Signs: Vital Signs - 24 hr 05/18/23 15:12 05/18/23 17:39 05/18/23 18:11 Temperature 97 F Pulse Rate 69 Respiratory Rate 18 Blood Pressure 153/79 H 162/84 H 165/82 H Pulse Oximetry 98 Oxygen Delivery Method Room Air 05/18/23 18:28 Temperature Pulse Rate 70 Respiratory Rate 20 Blood Pressure 173/82 H Pulse Oximetry 98 Oxygen Delivery Method Room Air BMI result Body Mass Index 29.8 Appearance: Alert. Oriented X3. No acute distress. Anxious Head: normocephalic, atraumatic. Eyes: Pupils equal, round and reactive to light. ENT: Pharynx normal. No tonsillar swelling or exudate. Neck: Normal inspection. Neck supple. CVS: Normal heart rate and rhythm. Pulses normal. Respiratory: No respiratory distress. Breath sounds normal. Abdomen: Soft and nontender. +BS x4 Skin: Skin warm and dry. Normal skin color. Normal skin turgor. No rashes. Extremities: No lower extremity edema. No joint swelling. Neuro/psych: Oriented X 3. No motor deficit. No sensory deficit. CN II-XII intact. Normal speech and cognition. Medications Administered Discontinued Medications Generic Name Dose Route Start Last Admin Trade Name Freq PRN Reason Stop Dose Admin Alprazolam 0.5 mg 05/18/23 18:20 05/18/23 18:25 Alprazolam 0.5 Mg Tablet PO 05/18/23 18:21 0.5 mg ONCE ONE Administration Hydroxyzine HCl 50 mg 05/18/23 18:03 05/18/23 18:20 Hydroxyzine Hcl 50 Mg Tablet PO 05/18/23 18:04 50 mg ONCE ONE Administration Medical Decision Making Medical Decision Making MDM Narrative: 77-year-old female presents to the ER for evaluation of hypertension and anxiety. Blood pressure 150-170 systolic over 70 to 80s. She has no chest pain, headaches, vision changes. She took her medications today. She reports she is severely anxious and would need medication for anxiety to help her blood pressure. She is on chronic Xanax at home. Her medications are usually in a lock box and administered by [facility] at home. Patient was administered hydroxyzine and Xanax in the emergency department. She is feeling better. She is stable for discharge home with outpatient follow-up. Differential Diagnosis Differential Diagnoses: The differential diagnosis associated with the presentation includes anxiety, panic attack, accelerated HTN, medication noncompliance Independent Historian Clinical information obtained from an independent historian. History obtained from or confirmed by: EMS External Record Review External record reviewed: Outpatient record, Prior outpatient labs and Prior outpatient radiology Tests considered The following testing was considered but not selected: Considered basic labs however deferred given her presentation Prescription Management I considered prescription management with: Other (Anxiolytic and antihypertensive) Chronic Conditions Patient?s care impacted by: Hypertension and Other (Anxiety) Critical Care Time Critical Care Time Critical Care Time: No Discharge Plan Discharge Clinical Impression: Essential hypertension, Generalized anxiety disorder with panic attacks Patient Disposition: Home, Self-Care Instructions: Chronic Hypertension (ED), Anxiety (ED) Additional Instructions: take all of your medications as prescribed and follow up with your doctor If you develop new or worsening symptoms call 911 or come back to the ER for further evaluation. Prescriptions: No Action escitalopram oxalate 10 mg tablet 10 mg PO DAILY Qty: 30 1RF metoprolol succinate 50 mg tablet extended release 24 hr 50 mg PO DAILY Qty: 90 2RF aspirin 81 mg tablet,delayed release (DR/EC) 81 mg PO BEDTIME Qty: 90 2RF polyethylene glycol 3350 [Miralax] 17 gram/dose powder 17 g PO DAILY PRN (Reason: constipation) Qty: 238 0RF lisinopril 40 mg tablet 40 mg PO QPM Qty: 90 3RF acetaminophen 325 mg capsule 325 mg PO QID PRN (Reason: fever or pain) Qty: 30 0RF melatonin 10 mg tablet extended release 10 mg PO .nightly Qty: 5 0RF metoprolol succinate 50 mg tablet extended release 24 hr 50 mg PO DAILY Qty: 14 0RF ciprofloxacin-dexamethasone [Ciprodex] 0.3-0.1 % drops,suspension 4 drp otic (ears) BID 7 Days 0RF alprazolam 0.5 mg Tablet 0.5 mg PO TID PRN (Reason: Anxiety) hydroxyzine HCl 50 mg Tablet 50 mg PO TID PRN (Reason: Anxiety) mirtazapine 45 mg Tablet 45 mg PO BEDTIME multivitamin Capsule 1 cap PO DAILY sertraline 50 mg Tablet 50 mg PO BEDTIME aripiprazole 2 mg Tablet 2 mg PO BEDTIME cholecalciferol (vitamin D3) 25 mcg (1,000 unit) Tablet 25 mcg PO BID omeprazole 20 mg Tablet,Delayed Release (Dr/Ec) 20 mg PO DAILY linaclotide 145 mcg Capsule 145 mcg PO DAILY diphenhydramine HCl [Benadryl] 25 mg capsule 25 mg PO BEDTIME Qty: 7 0RF cefdinir 300 mg capsule 300 mg PO BID 10 Days Qty: 20 0RF ondansetron HCl [Zofran] 4 mg tablet 4 mg PO Q8H PRN (Reason: nausea and vomiting) Qty: 14 0RF cefuroxime axetil 500 mg tablet 500 mg PO BID 7 Days Qty: 14 0RF meclizine 25 mg tablet 25 mg PO TID PRN (Reason: dizziness) Qty: 10 0RF levofloxacin 500 mg tablet 500 mg PO DAILY 7 Days Qty: 7 0RF cefuroxime axetil 500 mg tablet 500 mg PO BID 10 Days Qty: 20 0RF alprazolam 0.25 mg tablet 0.25 mg PO QID Qty: 7 0RF levofloxacin 500 mg tablet 500 mg PO DAILY Qty: 6 0RF Rx Instructions: start on 08/26 ofloxacin 0.3 % drops 10 drp otic (ears) DAILY 7 Days Qty: 5 0RF Rx Instructions: can substitute eye drops if necessary hydrocortisone 2.5 % cream with perineal applicator 1 appl GA BEDTIME PRN (Reason: hemorrhoids) Qty: 30 0RF Hemorrhoidal(PE-min oil-emma) 0.25-14-74.9 % ointment 1 appl GA BID PRN (Reason: hemorrhoids) Qty: 56 0RF polyethylene glycol 3350 [Miralax] 17 gram/dose powder 17 g PO BID Qty: 119 0RF docusate sodium [Colace] 100 mg capsule 100 mg PO BID PRN (Reason: Constipation) Qty: 14 0RF ofloxacin 0.3 % drops 5 drp otic (ear) left BID 7 Days Qty: 5 0RF alprazolam 0.25 mg tablet 0.25 mg PO TID PRN (Reason: anxiety) Qty: 7 0RF alprazolam [Xanax] 0.5 mg tablet 0.5 mg PO BEDTIME PRN (Reason: anxiety) Qty: 7 0RF metoprolol succinate 50 mg tablet extended release 24 hr 50 mg PO DAILY Qty: 7 0RF alprazolam 0.25 mg tablet 0.25 mg PO TID PRN (Reason: anxiety) Qty: 3 0RF Calmoseptine 0.44-20.6 % ointment 1 appl topical QID PRN (Reason: skin irritation) Qty: 113 0RF magnesium citrate Solution 150 ml PO DAILY PRN (Reason: constipation) Qty: 296 0RF Rx Instructions: take only when needed for constipation hydrocortisone acetate [Anucort-HC] 25 mg suppository 25 mg GA BID Qty: 12 3RF zolpidem [Ambien] 5 mg tablet 5 mg PO BEDTIME PRN (Reason: sleep) Qty: 2 0RF zolpidem [Ambien] 5 mg tablet 5 mg PO BEDTIME PRN (Reason: sleep) Qty: 2 0RF Interventions: ED Discharge Assessment Last Done: 05/18/23 18:33 Discharge Date/Time: 05/18/23 18:33
[2023-05-18 18:28] VITALS: BP 173/82; PULSE 70; RESP 20; O2SAT 98
== END 2023-05-18 18:33 | disposition home or self-care (01) ==
PROVIDERS: Emergency Provider Internal Medicine; PCP Internal Medicine Geriatric Medicine
DX: F41.1 Generalized anxiety disorder (principal); F43.0 Acute stress reaction; F41.0 Panic disorder [episodic paroxysmal anxiety]; R51.9 Headache, unspecified; Z79.899 Other long term (current) drug therapy
CPT/HCPCS: 99284

== ENCOUNTER 2023-05-19 07:00 | Emergency (ER) | payer OTHER, SELFPAY ==
[2023-05-19 07:09] VITALS: BP 181/87; BP 200/88; PULSE 76; RESP 16; TEMP 37; O2SAT 97; O2SAT 99; BMI 26.7
--- NOTE | 2023-05-19 07:16 | PC.NURSE ---
pt a&ox3, vss aside from hypertension, pt states that she has no pain but feeling very anxious due to her high blood pressure and requesting to see the provider, pt notified that the providers are just coming in and will be seeing her shortly, call ann placed within reach, will continue to monitor.
--- NOTE | 2023-05-19 07:21 | ED.GENADULT ---
HPI - General Adult General Chief complaint: General Medical Stated complaint: HIGH BP 200/88, DID NOT TAKE MEDS T-1 PER EMS Time Seen by Provider: 05/19/23 07:20 Source: patient and RN notes reviewed Mode of arrival: ambulatory Limitations: no limitations History of Present Illness HPI narrative: This is a 77-year-old female, with a past medical history of hypertension, anxiety with panic attacks on chronic benzodiazepines, SVT, hemorrhoids, vertigo dementia, presenting to the emergency department for evaluation of elevated blood pressure and anxiety. Patient was seen yesterday in the emergency department twice for the symptoms. Patient was discharged with prescription for metoprolol, which is the medication to she takes for her high blood pressure however she is unable to get to the pharmacy. She states that her VNA services will be able to diamond picker her hypertension medication today however patient was feeling concerned and wanted to get her blood pressure medication dose as soon as she could this morning. Patient denies any chest pain. She reports she is feeling anxious, denies headaches visual changes, has had multiple presentations for this. MD complaint: Hypertension and anxiety Onset (ago): day(s) Pain Consistency: intermittent Relieving factors: none Exacerbating factors: none Associated symptoms: denies other symptoms Treatments prior to arrival: none Related Data Home Medications Medication Instructions Recorded Confirmed alprazolam 0.5 mg tablet 0.5 mg PO TID PRN Anxiety 08/09/20 02/06/23 aripiprazole 2 mg tablet 2 mg PO BEDTIME 08/09/20 02/06/23 cholecalciferol (vitamin D3) 25 25 mcg PO BID 08/09/20 02/06/23 mcg (1,000 unit) tablet hydroxyzine HCl 50 mg tablet 50 mg PO TID PRN Anxiety 08/09/20 02/06/23 linaclotide 145 mcg capsule 145 mcg PO DAILY 08/09/20 02/06/23 mirtazapine 45 mg tablet 45 mg PO BEDTIME 08/09/20 02/06/23 multivitamin 1 cap PO DAILY 08/09/20 02/06/23 omeprazole 20 mg tablet,delayed 20 mg PO DAILY 08/09/20 02/06/23 release sertraline 50 mg tablet 50 mg PO BEDTIME 08/09/20 02/06/23 Previous Rx's Medication Instructions Recorded escitalopram oxalate 10 mg tablet 10 mg PO DAILY #30 tabs 09/06/20 acetaminophen 325 mg capsule 325 mg PO QID PRN fever or pain 09/16/20 #30 caps aspirin 81 mg tablet,delayed 81 mg PO BEDTIME #90 tabs 09/28/20 release metoprolol succinate 50 mg 50 mg PO DAILY #90 tabs 09/28/20 tablet,extended release 24 hr menthol 0.44 %-zinc oxide 20.6 % 1 appl topical QID PRN skin 12/13/20 topical ointment (Calmoseptine) irritation #113 grams magnesium citrate 150 ml PO DAILY PRN constipation 12/14/20 #296 mL diphenhydramine HCl 25 mg capsule 25 mg PO BEDTIME insomnia #7 caps 12/25/20 (Benadryl) melatonin 10 mg tablet,extended 10 mg PO .nightly #5 tabs 01/07/21 release cefdinir 300 mg capsule 300 mg PO BID Otitis media 10 days 04/14/21 #20 caps ondansetron HCl 4 mg tablet 4 mg PO Q8H PRN nausea and 04/14/21 (Zofran) vomiting #14 tabs metoprolol succinate 50 mg 50 mg PO DAILY #14 tabs 05/22/21 tablet,extended release 24 hr ciprofloxacin 0.3 %-dexamethasone 4 drp otic (ears) BID 7 days 05/26/21 0.1 % ear drops,suspension (Ciprodex) polyethylene glycol 3350 17 17 g PO DAILY PRN constipation 07/31/21 gram/dose oral powder (Miralax) #238 grams hydrocortisone acetate 25 mg 25 mg [place] BID #12 ea 08/01/21 rectal suppository (Anucort-HC) cefuroxime axetil 500 mg tablet 500 mg PO BID 7 days #14 tabs 09/01/21 meclizine 25 mg tablet 25 mg PO TID PRN dizziness #10 tabs 09/01/21 zolpidem 5 mg tablet (Ambien) 5 mg PO BEDTIME PRN sleep #2 tabs 10/29/21 zolpidem 5 mg tablet (Ambien) 5 mg PO BEDTIME PRN sleep #2 tabs 10/29/21 lisinopril 40 mg tablet 40 mg PO QPM #90 tabs 06/06/22 levofloxacin 500 mg tablet 500 mg PO DAILY 7 days #7 tabs 07/23/22 levofloxacin 500 mg tablet 500 mg PO DAILY #6 tabs 08/25/22 ofloxacin 0.3 % ear drops 10 drp otic (ears) DAILY 7 days #5 08/25/22 mL hydrocortisone 2.5 % topical cream 1 appl [place] BEDTIME PRN hemorrhoids 09/20/22 with perineal applicator #30 grams docusate sodium 100 mg capsule 100 mg PO BID PRN Constipation #14 12/06/22 (Colace) caps phenylephrine 0.25 %-mineral oil 1 appl [place] BID PRN hemorrhoids #56 12/06/22 14 %-petrolatm 74.9 % rectal grams ointment (Hemorrhoidal(phenyleph-min oil-petrolat)) polyethylene glycol 3350 17 17 g PO BID #119 grams 12/06/22 gram/dose oral powder (Miralax) cefuroxime axetil 500 mg tablet 500 mg PO BID 10 days #20 tabs 12/16/22 alprazolam 0.25 mg tablet 0.25 mg PO QID #7 tabs 01/04/23 ofloxacin 0.3 % ear drops 5 drp otic (ear) left BID 7 days 01/06/23 #5 mL alprazolam 0.25 mg tablet 0.25 mg PO TID PRN anxiety #7 tabs 01/11/23 alprazolam 0.25 mg tablet 0.25 mg PO TID PRN anxiety #3 tabs 02/02/23 alprazolam 0.5 mg tablet (Xanax) 0.5 mg PO BEDTIME PRN anxiety #7 04/20/23 tabs metoprolol succinate 50 mg 50 mg PO DAILY #7 tabs 05/18/23 tablet,extended release 24 hr Allergies Allergy/AdvReac Type Severity Reaction Status Date / Time penicillin G [Penicillin G] Allergy Severe ITCHY/RASH Verified 05/19/23 07:08 Sulfa (Sulfonamide Allergy Severe ITCHY,RASH, Verified 05/19/23 07:08 Antibiotics) rash [Sulfa (Sulfonamides)] trimethoprim [From Bactrim] Allergy Severe HIVES Verified 05/19/23 07:08 penicillin V Allergy Unknown rash Verified 05/19/23 07:08 sulfacetamide Allergy Unknown unknown Verified 05/19/23 07:08 [From Sulfacet-R] sulfur [From Sulfacet-R] Allergy Unknown unknown Verified 05/19/23 07:08 Review of Systems Review of Systems: Constitutional: No Weight loss, No Fever, No Chills ENT/Mouth: No Ear Pain, No Nasal Congestion, No Sinus Pain, No Hoarseness, No sore throat, No Rhinorrhea, No Swallowing Difficulty Cardiovascular: No Chest Pain, No SOB Respiratory: No Cough, No Sputum, No Wheezing Gastrointestinal: No Nausea, No Vomiting, No Diarrhea, No Constipation, No Abdominal pain Genitourinary: No Dysuria, No Urinary Frequency, No Hematuria, No Urinary Incontinence/retention, No Urgency, No Flank Pain Musculoskeletal: No joint pain, No Myalgias, No Joint Swelling Skin: No Skin Lesions, No rash Neuro: No Weakness, No Numbness, No Paresthesias PMFSH Past Medical History Medical History Anxiety Arthritis Bleeding hemorrhoids Chronic constipation Dementia Essential hypertension High blood pressure PAC (premature atrial contraction) PVC (premature ventricular contraction) SVT (supraventricular tachycardia) Vertigo Surgical History No pertinent past surgical history Social History Social History Alcohol intake: never Patient Tobacco Use Status: Never used Tobacco Smoked in Last 30 Days: No Use of substances other than those prescribed or required for medical reasons: No Advance Directives: No Advance Directives Information Provided: Yes Physical Exam ED Vital Signs: Vital Signs - 24 hr 05/19/23 07:09 Temperature 98.6 F Pulse Rate 76 Respiratory Rate 16 Blood Pressure 181/87 H Pulse Oximetry 97 Oxygen Delivery Method Room Air BMI result Body Mass Index 26.7 Const Other: Appearance: Alert.? Oriented X3.? No acute distress.? Anxious Head: normocephalic, atraumatic. Eyes: Pupils equal, round and reactive to light. ENT: Pharynx normal. No tonsillar swelling or exudate. Neck: Normal inspection.? Neck supple. CVS: Normal heart rate and rhythm.? Pulses normal. Respiratory: No respiratory distress.? Breath sounds normal. Abdomen: Soft and nontender. +BS x4 Skin: Skin warm and dry.? Normal skin color.? Normal skin turgor. No rashes. Extremities: No lower extremity edema. No joint swelling. Neuro/psych: Oriented X 3.? No motor deficit.? No sensory deficit. CN II-XII intact. Normal speech and cognition. Course Reevaluation(s) Reevaluation #1: Patient's blood pressure improved 168/74. Patient feeling well, however reports that she is still feeling very anxious, and is begging for 1 single dose of Xanax. I strongly urged that I did not want to do this and that she cannot be using the emergency department to be dosed with Xanax this needs to be managed outpatient through her psychiatrist. She states that she will be seeing her psychiatrist today, we will be going to their office for further management and control of her benzodiazepine use. Patient also advised to diamond picker her hypertension medications at the pharmacy which we sent over yesterday. Patient states that the VNA service will be doing this. Time: 08:17 Medications Administered Discontinued Medications Generic Name Dose Route Start Last Admin Trade Name Freq PRN Reason Stop Dose Admin Hydroxyzine HCl 50 mg 05/19/23 07:37 05/19/23 07:45 Hydroxyzine Hcl 50 Mg Tablet PO 05/19/23 07:38 50 mg ONCE ONE Administration Metoprolol Succinate 50 mg 05/19/23 07:35 05/19/23 07:45 Metoprolol Succinate Er 50 Mg Tab.Er.24h PO 05/19/23 07:36 50 mg ONCE ONE Administration Protocol Medical Decision Making Medical Decision Making MDM Narrative: 77-year-old female presenting to the emergency department for evaluation of hypertension and anxiety. Patient was seen in the emergency department 2 times yesterday for these symptoms. Patient's blood pressure on arrival was 181/87. She has no chest pain, headaches, vision changes. She reports that she is anxious and is requesting medication for anxiety to help her blood pressure. She is on chronic Xanax at home. Plan: Metoprolol, hydroxyzine ordered p.o. Discharge Plan Discharge Clinical Impression: Generalized anxiety disorder with panic attacks, Hypertension Patient Disposition: Home, Self-Care Instructions: How to Take a Blood Pressure (ED), Hypertension (ED), Anxiety (ED) Additional Instructions: You cannot continue to the use emergency department for being dosed with Xanax. You need to follow-up with your psychiatrist. Please take your hypertension medication, you were given a dose today. Your refill is at the pharmacy right now. Please go pick it up. Please drink plenty of fluids get plenty of rest. If any new or worsening symptoms occur please return for re-evaluation. No puede continuar al servicio de urgencias por recibir dosis de Xanax. Tienes que hacer un seguimiento con tu psiquiatra. Por favor, tome clark medicamento para la hipertensi?n, le dieron suzy dosis hoy. Clark recarga est? en la farmacia en chidi momento. Por favor, ve a recogerlo. Jenny muchos l?quidos y descanse lo suficiente. Si se presentan s?ntomas nuevos o que empeoran, regrese para suzy reevaluaci?n. Prescriptions: No Action escitalopram oxalate 10 mg tablet 10 mg PO DAILY Qty: 30 1RF metoprolol succinate 50 mg tablet extended release 24 hr 50 mg PO DAILY Qty: 90 2RF aspirin 81 mg tablet,delayed release (DR/EC) 81 mg PO BEDTIME Qty: 90 2RF polyethylene glycol 3350 [Miralax] 17 gram/dose powder 17 g PO DAILY PRN (Reason: constipation) Qty: 238 0RF lisinopril 40 mg tablet 40 mg PO QPM Qty: 90 3RF acetaminophen 325 mg capsule 325 mg PO QID PRN (Reason: fever or pain) Qty: 30 0RF melatonin 10 mg tablet extended release 10 mg PO .nightly Qty: 5 0RF metoprolol succinate 50 mg tablet extended release 24 hr 50 mg PO DAILY Qty: 14 0RF ciprofloxacin-dexamethasone [Ciprodex] 0.3-0.1 % drops,suspension 4 drp otic (ears) BID 7 Days 0RF alprazolam 0.5 mg Tablet 0.5 mg PO TID PRN (Reason: Anxiety) hydroxyzine HCl 50 mg Tablet 50 mg PO TID PRN (Reason: Anxiety) mirtazapine 45 mg Tablet 45 mg PO BEDTIME multivitamin Capsule 1 cap PO DAILY sertraline 50 mg Tablet 50 mg PO BEDTIME aripiprazole 2 mg Tablet 2 mg PO BEDTIME cholecalciferol (vitamin D3) 25 mcg (1,000 unit) Tablet 25 mcg PO BID omeprazole 20 mg Tablet,Delayed Release (Dr/Ec) 20 mg PO DAILY linaclotide 145 mcg Capsule 145 mcg PO DAILY diphenhydramine HCl [Benadryl] 25 mg capsule 25 mg PO BEDTIME Qty: 7 0RF cefdinir 300 mg capsule 300 mg PO BID 10 Days Qty: 20 0RF ondansetron HCl [Zofran] 4 mg tablet 4 mg PO Q8H PRN (Reason: nausea and vomiting) Qty: 14 0RF cefuroxime axetil 500 mg tablet 500 mg PO BID 7 Days Qty: 14 0RF meclizine 25 mg tablet 25 mg PO TID PRN (Reason: dizziness) Qty: 10 0RF levofloxacin 500 mg tablet 500 mg PO DAILY 7 Days Qty: 7 0RF cefuroxime axetil 500 mg tablet 500 mg PO BID 10 Days Qty: 20 0RF alprazolam 0.25 mg tablet 0.25 mg PO QID Qty: 7 0RF levofloxacin 500 mg tablet 500 mg PO DAILY Qty: 6 0RF Rx Instructions: start on 08/26 ofloxacin 0.3 % drops 10 drp otic (ears) DAILY 7 Days Qty: 5 0RF Rx Instructions: can substitute eye drops if necessary hydrocortisone 2.5 % cream with perineal applicator 1 appl [place] BEDTIME PRN (Reason: hemorrhoids) Qty: 30 0RF Hemorrhoidal(PE-min oil-emma) 0.25-14-74.9 % ointment 1 appl [place] BID PRN (Reason: hemorrhoids) Qty: 56 0RF polyethylene glycol 3350 [Miralax] 17 gram/dose powder 17 g PO BID Qty: 119 0RF docusate sodium [Colace] 100 mg capsule 100 mg PO BID PRN (Reason: Constipation) Qty: 14 0RF ofloxacin 0.3 % drops 5 drp otic (ear) left BID 7 Days Qty: 5 0RF alprazolam 0.25 mg tablet 0.25 mg PO TID PRN (Reason: anxiety) Qty: 7 0RF alprazolam [Xanax] 0.5 mg tablet 0.5 mg PO BEDTIME PRN (Reason: anxiety) Qty: 7 0RF metoprolol succinate 50 mg tablet extended release 24 hr 50 mg PO DAILY Qty: 7 0RF alprazolam 0.25 mg tablet 0.25 mg PO TID PRN (Reason: anxiety) Qty: 3 0RF Calmoseptine 0.44-20.6 % ointment 1 appl topical QID PRN (Reason: skin irritation) Qty: 113 0RF magnesium citrate Solution 150 ml PO DAILY PRN (Reason: constipation) Qty: 296 0RF Rx Instructions: take only when needed for constipation hydrocortisone acetate [Anucort-HC] 25 mg suppository 25 mg [place] BID Qty: 12 3RF zolpidem [Ambien] 5 mg tablet 5 mg PO BEDTIME PRN (Reason: sleep) Qty: 2 0RF zolpidem [Ambien] 5 mg tablet 5 mg PO BEDTIME PRN (Reason: sleep) Qty: 2 0RF Print Language: English
--- NOTE | 2023-05-19 07:46 | PC.NURSE ---
patient a&ox3, pt medicated with BP meds and anxiety meds as she states she has none at home, vitals stable, call ann within reach, will continue to monitor
--- NOTE | 2023-05-19 09:04 | PC.NURSE ---
pt medicated prior to discharge per provider order, pt states that she will picking up her medications from the pharmacy today.
== END 2023-05-19 09:08 | disposition home or self-care (01) ==
PROVIDERS: Emergency Provider Emergency Medicine
DX: F41.1 Generalized anxiety disorder (principal); F43.0 Acute stress reaction; F41.0 Panic disorder [episodic paroxysmal anxiety]; I10 Essential (primary) hypertension; Z79.899 Other long term (current) drug therapy
CPT/HCPCS: 99283; 99284

== ENCOUNTER 2023-06-02 08:06 | Outpatient (REF) | payer OTHER, SELFPAY ==
[2023-06-02 11:47] LABS: Estimated Average Glucose 114 mg/dL; Hemoglobin A1c % 5.6 %
[2023-06-02 12:03] LABS: Anion Gap 13 (12-20); Blood Urea Nitrogen 22 mg/dL (9-16); Calcium 9.9 mg/dL (8.4-10.2); Carbon Dioxide 29 mmol/L (22-29); Chloride 95 mmol/L (96-108); Estimated Glomerular Filt Rate 55; Glucose Random 95 mg/dL (60-115); Potassium 4.6 mmol/L (3.3-5.1); Sodium 132 mmol/L (135-145)
== END 2023-06-02 08:07 | disposition home or self-care (01) ==
LOC: HO.HHCL 08:06
PROVIDERS: Visit Provider Internal Medicine Geriatric Medicine
DX: I10 Essential (primary) hypertension (principal); F41.1 Generalized anxiety disorder; F41.0 Panic disorder [episodic paroxysmal anxiety]; R73.03 Prediabetes
CPT/HCPCS: 36415; 80048; 83036

== ENCOUNTER 2023-06-07 23:22 | Emergency (ER) | payer OTHER, SELFPAY ==
[2023-06-07 23:27] VITALS: BP 130/88; BP 177/85; PULSE 82; PULSE 87; RESP 16; O2SAT 97; O2SAT 99; BMI 25.8
--- NOTE | 2023-06-08 | ED.ANXIETY ---
HPI - Anxiety General Chief Complaint: Anxiety Stated Complaint: Anxiety Time Seen by Provider: 06/07/23 23:41 Source: patient and EMS Mode of arrival: EMS Limitations: no limitations History of Present Illness HPI narrative: 77-year-old female with history of anxiety taking Xanax 0.25 mg 4 times daily presents after having missed a few doses of her medication. Patient reports that her medications are currently in [facility] with her daughter. Her daughter is coming back to the area today. Patient describes anxiety that is moderate to severe in nature. His exacerbated by missing her medications. Is improved by taking Xanax. She denies any suicidal homicidal ideation. She denies any chest pain, palpitations, shortness of breath. She does describe some mild nausea though. She denies any vomiting, diarrhea constipation. Related Data Home Medications Medication Instructions Recorded Confirmed alprazolam 0.5 mg tablet 0.5 mg PO TID PRN Anxiety 08/09/20 02/06/23 aripiprazole 2 mg tablet 2 mg PO BEDTIME 08/09/20 02/06/23 cholecalciferol (vitamin D3) 25 25 mcg PO BID 08/09/20 02/06/23 mcg (1,000 unit) tablet hydroxyzine HCl 50 mg tablet 50 mg PO TID PRN Anxiety 08/09/20 02/06/23 linaclotide 145 mcg capsule 145 mcg PO DAILY 08/09/20 02/06/23 mirtazapine 45 mg tablet 45 mg PO BEDTIME 08/09/20 02/06/23 multivitamin 1 cap PO DAILY 08/09/20 02/06/23 omeprazole 20 mg tablet,delayed 20 mg PO DAILY 08/09/20 02/06/23 release sertraline 50 mg tablet 50 mg PO BEDTIME 08/09/20 02/06/23 Previous Rx's Medication Instructions Recorded escitalopram oxalate 10 mg tablet 10 mg PO DAILY #30 tabs 09/06/20 acetaminophen 325 mg capsule 325 mg PO QID PRN fever or pain 09/16/20 #30 caps aspirin 81 mg tablet,delayed 81 mg PO BEDTIME #90 tabs 09/28/20 release metoprolol succinate 50 mg 50 mg PO DAILY #90 tabs 09/28/20 tablet,extended release 24 hr menthol 0.44 %-zinc oxide 20.6 % 1 appl topical QID PRN skin 12/13/20 topical ointment (Calmoseptine) irritation #113 grams magnesium citrate 150 ml PO DAILY PRN constipation 12/14/20 #296 mL diphenhydramine HCl 25 mg capsule 25 mg PO BEDTIME insomnia #7 caps 12/25/20 (Benadryl) melatonin 10 mg tablet,extended 10 mg PO .nightly #5 tabs 01/07/21 release cefdinir 300 mg capsule 300 mg PO BID Otitis media 10 days 04/14/21 #20 caps ondansetron HCl 4 mg tablet 4 mg PO Q8H PRN nausea and 04/14/21 (Zofran) vomiting #14 tabs metoprolol succinate 50 mg 50 mg PO DAILY #14 tabs 05/22/21 tablet,extended release 24 hr ciprofloxacin 0.3 %-dexamethasone 4 drp otic (ears) BID 7 days 05/26/21 0.1 % ear drops,suspension (Ciprodex) polyethylene glycol 3350 17 17 g PO DAILY PRN constipation 07/31/21 gram/dose oral powder (Miralax) #238 grams hydrocortisone acetate [address] BID #12 ea 08/01/21 rectal suppository (Anucort-HC) cefuroxime axetil 500 mg tablet 500 mg PO BID 7 days #14 tabs 09/01/21 meclizine 25 mg tablet 25 mg PO TID PRN dizziness #10 tabs 09/01/21 zolpidem 5 mg tablet (Ambien) 5 mg PO BEDTIME PRN sleep #2 tabs 10/29/21 zolpidem 5 mg tablet (Ambien) 5 mg PO BEDTIME PRN sleep #2 tabs 10/29/21 levofloxacin 500 mg tablet 500 mg PO DAILY 7 days #7 tabs 07/23/22 levofloxacin 500 mg tablet 500 mg PO DAILY #6 tabs 08/25/22 ofloxacin 0.3 % ear drops 10 drp otic (ears) DAILY 7 days #5 08/25/22 mL hydrocortisone 2.5 % topical cream [address] BEDTIME PRN hemorrhoids 09/20/22 with perineal applicator #30 grams docusate sodium 100 mg capsule 100 mg PO BID PRN Constipation #14 12/06/22 (Colace) caps phenylephrine 0.25 %-mineral oil [address] BID PRN hemorrhoids #56 12/06/22 14 %-petrolatm 74.9 % rectal grams ointment (Hemorrhoidal(phenyleph-min oil-petrolat)) polyethylene glycol 3350 17 17 g PO BID #119 grams 12/06/22 gram/dose oral powder (Miralax) cefuroxime axetil 500 mg tablet 500 mg PO BID 10 days #20 tabs 12/16/22 alprazolam 0.25 mg tablet 0.25 mg PO QID #7 tabs 01/04/23 ofloxacin 0.3 % ear drops 5 drp otic (ear) left BID 7 days 01/06/23 #5 mL alprazolam 0.25 mg tablet 0.25 mg PO TID PRN anxiety #7 tabs 01/11/23 alprazolam 0.25 mg tablet 0.25 mg PO TID PRN anxiety #3 tabs 02/02/23 alprazolam 0.5 mg tablet (Xanax) 0.5 mg PO BEDTIME PRN anxiety #7 04/20/23 tabs metoprolol succinate 50 mg 50 mg PO DAILY #7 tabs 05/18/23 tablet,extended release 24 hr lisinopril 40 mg tablet 40 mg PO QPM #90 tabs 05/22/23 Allergies Allergy/AdvReac Type Severity Reaction Status Date / Time penicillin G [Penicillin G] Allergy Severe ITCHY/RASH Verified 06/07/23 23:27 Sulfa (Sulfonamide Allergy Severe ITCHY,RASH, Verified 06/07/23 23:27 Antibiotics) rash [Sulfa (Sulfonamides)] trimethoprim [From Bactrim] Allergy Severe HIVES Verified 06/07/23 23:27 penicillin V Allergy Unknown rash Verified 06/07/23 23:27 sulfacetamide Allergy Unknown unknown Verified 06/07/23 23:27 [From Sulfacet-R] sulfur [From Sulfacet-R] Allergy Unknown unknown Verified 06/07/23 23:27 Review of Systems Review of Systems: CONSTITUTIONAL: Denies weight loss, fever and chills. HEENT: Denies changes in vision and hearing. RESPIRATORY: Denies SOB and cough. CV: Denies palpitations no CP. GI: Denies abdominal pain, nausea, vomiting and diarrhea. : Denies dysuria and urinary frequency. MSK: Denies myalgia and joint pain. SKIN: Denies rash and pruritus. NEUROLOGICAL: Denies headache and syncope. PSYCHIATRIC: Denies recent changes in mood. + anxiety All other ROS are negative unless in HPI PMFSH Past Medical History Medical History Anxiety Arthritis Bleeding hemorrhoids Chronic constipation Dementia Essential hypertension High blood pressure PAC (premature atrial contraction) PVC (premature ventricular contraction) SVT (supraventricular tachycardia) Vertigo Surgical History No pertinent past surgical history Social History Social History Alcohol intake: never Patient Tobacco Use Status: Never used Tobacco Advance Directives: No Advance Directives Information Provided: No Physical Exam Vital Signs: Vital Signs: Last Vital Signs Temp 98.2 F 06/08/23 00:21 Pulse 82 06/07/23 23:27 Resp 14 06/08/23 00:21 BP 148/76 H 06/08/23 00:21 Pulse Ox 99 06/08/23 00:21 O2 Del Method Room Air 06/08/23 00:21 BMI result Body Mass Index 25.8 GEN: Well developed, no acute distress, alert, oriented HEENT: Normocephalic, atraumatic, normal external ears, nose appears normal Eyes: Normal to appearance Neck: Supple, no lymphadenopathy Respiratory: Talks in complete sentences, no respiratory distress Extremities: No clubbing cyanosis or edema Neurologic: No focal neurologic deficits, cranial nerves 2-12 intact, gait normal Skin: No rash Psych: Anxious appearing Course Course Course Narrative: Patient has been to the emergency department several times for similar complaints. At this time, she is less anxious appearing. Blood pressure is improved. She will receive her medications from her daughter tomorrow. Will not prescribe any additional medications at this time. Medical Decision Making Medical Decision Making MDM Narrative: Patient presents with ext acute anxiety. She missed her doses of Xanax today. Will provide her with a dose of Xanax now, Zofran for nausea. Differential diagnosis includes anxiety, PTSD, depression, mood disorder. Differential Diagnosis Differential Diagnoses: The differential diagnosis associated with the presentation includes (See above) Prescription Management I considered prescription management with: Other (Anxiety medication) Discharge Plan Discharge Clinical Impression: Acute anxiety Patient Disposition: Home, Self-Care Instructions: Anxiety (ED) Prescriptions: No Action escitalopram oxalate 10 mg tablet 10 mg PO DAILY Qty: 30 1RF metoprolol succinate 50 mg tablet extended release 24 hr 50 mg PO DAILY Qty: 90 2RF aspirin 81 mg tablet,delayed release (DR/EC) 81 mg PO BEDTIME Qty: 90 2RF polyethylene glycol 3350 [Miralax] 17 gram/dose powder 17 g PO DAILY PRN (Reason: constipation) Qty: 238 0RF lisinopril 40 mg tablet 40 mg PO QPM Qty: 90 0RF Rx Instructions: Please call and schedule cardiology appt acetaminophen 325 mg capsule 325 mg PO QID PRN (Reason: fever or pain) Qty: 30 0RF melatonin 10 mg tablet extended release 10 mg PO .nightly Qty: 5 0RF metoprolol succinate 50 mg tablet extended release 24 hr 50 mg PO DAILY Qty: 14 0RF ciprofloxacin-dexamethasone [Ciprodex] 0.3-0.1 % drops,suspension 4 drp otic (ears) BID 7 Days 0RF alprazolam 0.5 mg Tablet 0.5 mg PO TID PRN (Reason: Anxiety) hydroxyzine HCl 50 mg Tablet 50 mg PO TID PRN (Reason: Anxiety) mirtazapine 45 mg Tablet 45 mg PO BEDTIME multivitamin Capsule 1 cap PO DAILY sertraline 50 mg Tablet 50 mg PO BEDTIME aripiprazole 2 mg Tablet 2 mg PO BEDTIME cholecalciferol (vitamin D3) 25 mcg (1,000 unit) Tablet 25 mcg PO BID omeprazole 20 mg Tablet,Delayed Release (Dr/Ec) 20 mg PO DAILY linaclotide 145 mcg Capsule 145 mcg PO DAILY diphenhydramine HCl [Benadryl] 25 mg capsule 25 mg PO BEDTIME Qty: 7 0RF cefdinir 300 mg capsule 300 mg PO BID 10 Days Qty: 20 0RF ondansetron HCl [Zofran] 4 mg tablet 4 mg PO Q8H PRN (Reason: nausea and vomiting) Qty: 14 0RF cefuroxime axetil 500 mg tablet 500 mg PO BID 7 Days Qty: 14 0RF meclizine 25 mg tablet 25 mg PO TID PRN (Reason: dizziness) Qty: 10 0RF levofloxacin 500 mg tablet 500 mg PO DAILY 7 Days Qty: 7 0RF cefuroxime axetil 500 mg tablet 500 mg PO BID 10 Days Qty: 20 0RF alprazolam 0.25 mg tablet 0.25 mg PO QID Qty: 7 0RF levofloxacin 500 mg tablet 500 mg PO DAILY Qty: 6 0RF Rx Instructions: start on 08/26 ofloxacin 0.3 % drops 10 drp otic (ears) DAILY 7 Days Qty: 5 0RF Rx Instructions: can substitute eye drops if necessary hydrocortisone 2.5 % cream with perineal applicator [address] BEDTIME PRN (Reason: hemorrhoids) Qty: 30 0RF Hemorrhoidal(PE-min oil-emma) 0.25-14-74.9 % ointment [address] BID PRN (Reason: hemorrhoids) Qty: 56 0RF polyethylene glycol 3350 [Miralax] 17 gram/dose powder 17 g PO BID Qty: 119 0RF docusate sodium [Colace] 100 mg capsule 100 mg PO BID PRN (Reason: Constipation) Qty: 14 0RF ofloxacin 0.3 % drops 5 drp otic (ear) left BID 7 Days Qty: 5 0RF alprazolam 0.25 mg tablet 0.25 mg PO TID PRN (Reason: anxiety) Qty: 7 0RF alprazolam [Xanax] 0.5 mg tablet 0.5 mg PO BEDTIME PRN (Reason: anxiety) Qty: 7 0RF metoprolol succinate 50 mg tablet extended release 24 hr 50 mg PO DAILY Qty: 7 0RF alprazolam 0.25 mg tablet 0.25 mg PO TID PRN (Reason: anxiety) Qty: 3 0RF Calmoseptine 0.44-20.6 % ointment 1 appl topical QID PRN (Reason: skin irritation) Qty: 113 0RF magnesium citrate Solution 150 ml PO DAILY PRN (Reason: constipation) Qty: 296 0RF Rx Instructions: take only when needed for constipation hydrocortisone acetate [Anucort-HC] 25 mg suppository [address] BID Qty: 12 3RF zolpidem [Ambien] 5 mg tablet 5 mg PO BEDTIME PRN (Reason: sleep) Qty: 2 0RF zolpidem [Ambien] 5 mg tablet 5 mg PO BEDTIME PRN (Reason: sleep) Qty: 2 0RF Referrals: Name,Nitin, MD [Primary Care Provider] -
[2023-06-08 00:21] VITALS: BP 148/76; RESP 14; TEMP 36.8; O2SAT 99
[2023-06-08] MEDS: Ondansetron ODT 4 MG TAB.RAPDIS TRANSLINGU (00:44)
[2023-06-08] MEDS: ALPRAZolam 0.25 MG TABLET PO (00:44)
== END 2023-06-08 00:51 | disposition home or self-care (01) ==
PROVIDERS: Emergency Provider Emergency Medicine; PCP Internal Medicine Geriatric Medicine
DX: F41.1 Generalized anxiety disorder (principal); F43.0 Acute stress reaction; R11.2 Nausea with vomiting, unspecified; Z79.899 Other long term (current) drug therapy
CPT/HCPCS: 99284

== ENCOUNTER 2023-06-30 22:57 | Emergency (ER) | payer OTHER, SELFPAY ==
[2023-06-30 23:02] VITALS: BP 165/85; BP 166/80; PULSE 76; PULSE 82; RESP 18; TEMP 36.7; O2SAT 100; BMI 31.4
[2023-07-01 01:05] VITALS: BP 176/80; PULSE 73; RESP 18; O2SAT 99
[2023-07-01 01:18] VITALS: BP 182/92; PULSE 79; RESP 17; TEMP 36.5; O2SAT 96
--- NOTE | 2023-07-01 02:03 | ED_ITS ---
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 Related Data Home Medications Medication Instructions Recorded Confirmed alprazolam 0.5 mg tablet 0.5 mg PO TID PRN Anxiety 08/09/20 02/06/23 aripiprazole 2 mg tablet 2 mg PO BEDTIME 08/09/20 02/06/23 cholecalciferol (vitamin D3) 25 25 mcg PO BID 08/09/20 02/06/23 mcg (1,000 unit) tablet hydroxyzine HCl 50 mg tablet 50 mg PO TID PRN Anxiety 08/09/20 02/06/23 linaclotide 145 mcg capsule 145 mcg PO DAILY 08/09/20 02/06/23 mirtazapine 45 mg tablet 45 mg PO BEDTIME 08/09/20 02/06/23 multivitamin 1 cap PO DAILY 08/09/20 02/06/23 omeprazole 20 mg tablet,delayed 20 mg PO DAILY 08/09/20 02/06/23 release sertraline 50 mg tablet 50 mg PO BEDTIME 08/09/20 02/06/23 Previous Rx's Medication Instructions Recorded escitalopram oxalate 10 mg tablet 10 mg PO DAILY #30 tabs 09/06/20 acetaminophen 325 mg capsule 325 mg PO QID PRN fever or pain 09/16/20 #30 caps aspirin 81 mg tablet,delayed 81 mg PO BEDTIME #90 tabs 09/28/20 release metoprolol succinate 50 mg 50 mg PO DAILY #90 tabs 09/28/20 tablet,extended release 24 hr menthol 0.44 %-zinc oxide 20.6 % 1 appl topical QID PRN skin 12/13/20 topical ointment (Calmoseptine) irritation #113 grams magnesium citrate 150 ml PO DAILY PRN constipation 12/14/20 #296 mL diphenhydramine HCl 25 mg capsule 25 mg PO BEDTIME insomnia #7 caps 12/25/20 (Benadryl) melatonin 10 mg tablet,extended 10 mg PO .nightly #5 tabs 01/07/21 release cefdinir 300 mg capsule 300 mg PO BID Otitis media 10 days 04/14/21 #20 caps ondansetron HCl 4 mg tablet 4 mg PO Q8H PRN nausea and 04/14/21 (Zofran) vomiting #14 tabs metoprolol succinate 50 mg 50 mg PO DAILY #14 tabs 05/22/21 tablet,extended release 24 hr ciprofloxacin 0.3 %-dexamethasone 4 drp otic (ears) BID 7 days 05/26/21 0.1 % ear drops,suspension (Ciprodex) polyethylene glycol 3350 17 17 g PO DAILY PRN constipation 07/31/21 gram/dose oral powder (Miralax) #238 grams hydrocortisone acetate 25 mg 25 mg CO BID #12 ea 08/01/21 rectal suppository (Anucort-HC) cefuroxime axetil 500 mg tablet 500 mg PO BID 7 days #14 tabs 09/01/21 meclizine 25 mg tablet 25 mg PO TID PRN dizziness #10 tabs 09/01/21 zolpidem 5 mg tablet (Ambien) 5 mg PO BEDTIME PRN sleep #2 tabs 10/29/21 zolpidem 5 mg tablet (Ambien) 5 mg PO BEDTIME PRN sleep #2 tabs 10/29/21 levofloxacin 500 mg tablet 500 mg PO DAILY 7 days #7 tabs 07/23/22 levofloxacin 500 mg tablet 500 mg PO DAILY #6 tabs 08/25/22 ofloxacin 0.3 % ear drops 10 drp otic (ears) DAILY 7 days #5 08/25/22 mL hydrocortisone 2.5 % topical cream 1 appl CO BEDTIME PRN hemorrhoids 09/20/22 with perineal applicator #30 grams docusate sodium 100 mg capsule 100 mg PO BID PRN Constipation #14 12/06/22 (Colace) caps phenylephrine 0.25 %-mineral oil 1 appl CO BID PRN hemorrhoids #56 12/06/22 14 %-petrolatm 74.9 % rectal grams ointment (Hemorrhoidal(phenyleph-min oil-petrolat)) polyethylene glycol 3350 17 17 g PO BID #119 grams 12/06/22 gram/dose oral powder (Miralax) cefuroxime axetil 500 mg tablet 500 mg PO BID 10 days #20 tabs 12/16/22 alprazolam 0.25 mg tablet 0.25 mg PO QID #7 tabs 01/04/23 ofloxacin 0.3 % ear drops 5 drp otic (ear) left BID 7 days 01/06/23 #5 mL alprazolam 0.25 mg tablet 0.25 mg PO TID PRN anxiety #7 tabs 01/11/23 alprazolam 0.25 mg tablet 0.25 mg PO TID PRN anxiety #3 tabs 02/02/23 alprazolam 0.5 mg tablet (Xanax) 0.5 mg PO BEDTIME PRN anxiety #7 04/20/23 tabs metoprolol succinate 50 mg 50 mg PO DAILY #7 tabs 05/18/23 tablet,extended release 24 hr lisinopril 40 mg tablet 40 mg PO QPM #90 tabs 05/22/23 Allergies Allergy/AdvReac Type Severity Reaction Status Date / Time penicillin G [Penicillin G] Allergy Severe ITCHY/RASH Verified 06/30/23 23:01 Sulfa (Sulfonamide Allergy Severe ITCHY,RASH, Verified 06/30/23 23:01 Antibiotics) rash [Sulfa (Sulfonamides)] trimethoprim [From Bactrim] Allergy Severe HIVES Verified 06/30/23 23:01 penicillin V Allergy Unknown rash Verified 06/30/23 23:01 sulfacetamide Allergy Unknown unknown Verified 06/30/23 23:01 [From Sulfacet-R] sulfur [From Sulfacet-R] Allergy Unknown unknown Verified 06/30/23 23:01 Review of Systems Review of Systems: All other systems are reviewed and are negative Constitutional: Reports as per HPI and Reports no additional constitutional complaints Eyes: Reports as per HPI and Reports no additional eye complaints Reports system reviewed and no additional complaints, except as documented Cardiovascular: Reports as per HPI and Reports no additional cardiovascular complaints Respiratory: Reports as per HPI and Reports no additional respiratory complaints Gastrointestinal: Reports as per HPI and Reports no additional gastrointestinal complaints Genitourinary: Reports no additional female genitourinary complaints Musculoskeletal: Reports no additional musculoskeletal complaints Skin/Breast: Reports system reviewed and no additional complaints, except as docu Psychiatric: Reports no additional psychiatric complaints Endocrine: Reports no additional endocrine complaints Hematologic/Lymphatic: Reports no additional hematologic/lymphatic complaints Allergic/Immunologic: Reports no additional allergic/immunologic complaints Reports system reviewed and no additional complaints, except as documented and Reports Abnormal speech present [facility] Past Medical History Medical History Anxiety Arthritis Bleeding hemorrhoids Chronic constipation Dementia Essential hypertension High blood pressure PAC (premature atrial contraction) PVC (premature ventricular contraction) SVT (supraventricular tachycardia) Vertigo Surgical History No pertinent past surgical history Social History Social History Alcohol intake: never Patient Tobacco Use Status: Never used Tobacco Smoked in Last 30 Days: No Use of substances other than those prescribed or required for medical reasons: No Advance Directives: No Advance Directives Information Provided: Yes Physical Exam Vital Signs: Vital Signs: Last Vital Signs Temp 97.7 F 07/01/23 01:18 Pulse 75 07/01/23 02:46 Resp 18 07/01/23 02:46 BP 150/76 H 07/01/23 02:46 Pulse Ox 100 07/01/23 02:46 O2 Del Method Room Air 07/01/23 01:18 BMI result Body Mass Index 31.4 Vital signs have been reviewed as appeared to be correct. Blood pressure normal. Heart rate normal. Respiration rate normal. Temperature normal. Oxygen saturation normal. Appearance: Anxious, Alert. Oriented X3. No acute distress. Head: Normal external exam. Normocephalic. Atraumatic. No Gomes signs noted. No raccoon eyes noted Eyes: PERRLA. EOMI. Conjunctiva and sclera normal. Eyelids normal. ENT: TM's Normal. Pharynx normal. Uvula midline. Moist mucous membranes. No trismus noted. No drooling noted. No muffled voice noted. Neck: Normal inspection. Neck supple. FROM. No adenopathy. Thyroid Normal. No meningeal signs. No neck mass noted. CVS: Normal heart rate and rhythm. Heart sound normal. No murmurs noted. Pulses normal throughout. Respiratory: No respiratory distress. Painless inspiration. Breath sounds normal. No wheezes/rales/rhonchi noted. Chest nontender. No accessory muscle usage noted or decreased air movement noted. Abdomen: Soft and nontender. Bowel sounds normal in all 4 quadrants. No distention noted. No organomegaly noted. No visible injury noted. Back: No CVA tenderness. Full range of motion noted. Skin: Skin warm and dry. Normal skin color. Normal skin turgor. No rashes/lesions/lacerations noted. Extremities: No lower extremity edema. Extremities exhibit normal range of mot ion. Extremities nontender. Neuro: Anxious, Oriented X 3. Cranial nerve exam: II-XII are grossly intact No motor deficit. No sensory deficit. Reflexes normal. Course Course Course Narrative: 77-year-old female well known to our ED staff for frequent ED visits for anxiety and subsequently elevation of blood pressure, patient on chronic alprazolam managed by PCP. Patient received 1 extra dose of alprazolam in the emergency department patient now is calm and less anxious with improvement of the blood pressure reading. Patient take metoprolol at home which is due in the morning. Medications Administered Discontinued Medications Generic Name Dose Route Start Last Admin Trade Name Freq PRN Reason Stop Dose Admin Alprazolam 0.5 mg 07/01/23 01:49 07/01/23 02:14 Alprazolam 0.5 Mg Tablet PO 07/01/23 01:50 0.5 mg ONCE ONE Administration Medical Decision Making Differential Diagnosis Differential Diagnoses: The differential diagnosis associated with the presentation includes (Anxiety, essential hypertension, SI.) Admission/Observation Consideration of admission/observation: Escalation of care including admission/observation considered Discharge Plan Discharge Clinical Impression: Generalized anxiety disorder with panic attacks, Hyperventilation Patient Disposition: Home, Self-Care Instructions: Panic Attack (ED) Prescriptions: No Action escitalopram oxalate 10 mg tablet 10 mg PO DAILY Qty: 30 1RF metoprolol succinate 50 mg tablet extended release 24 hr 50 mg PO DAILY Qty: 90 2RF aspirin 81 mg tablet,delayed release (DR/EC) 81 mg PO BEDTIME Qty: 90 2RF polyethylene glycol 3350 [Miralax] 17 gram/dose powder 17 g PO DAILY PRN (Reason: constipation) Qty: 238 0RF lisinopril 40 mg tablet 40 mg PO QPM Qty: 90 0RF Rx Instructions: Please call and schedule cardiology appt acetaminophen 325 mg capsule 325 mg PO QID PRN (Reason: fever or pain) Qty: 30 0RF melatonin 10 mg tablet extended release 10 mg PO .nightly Qty: 5 0RF metoprolol succinate 50 mg tablet extended release 24 hr 50 mg PO DAILY Qty: 14 0RF ciprofloxacin-dexamethasone [Ciprodex] 0.3-0.1 % drops,suspension 4 drp otic (ears) BID 7 Days 0RF alprazolam 0.5 mg Tablet 0.5 mg PO TID PRN (Reason: Anxiety) hydroxyzine HCl 50 mg Tablet 50 mg PO TID PRN (Reason: Anxiety) mirtazapine 45 mg Tablet 45 mg PO BEDTIME multivitamin Capsule 1 cap PO DAILY sertraline 50 mg Tablet 50 mg PO BEDTIME aripiprazole 2 mg Tablet 2 mg PO BEDTIME cholecalciferol (vitamin D3) 25 mcg (1,000 unit) Tablet 25 mcg PO BID omeprazole 20 mg Tablet,Delayed Release (Dr/Ec) 20 mg PO DAILY linaclotide 145 mcg Capsule 145 mcg PO DAILY diphenhydramine HCl [Benadryl] 25 mg capsule 25 mg PO BEDTIME Qty: 7 0RF cefdinir 300 mg capsule 300 mg PO BID 10 Days Qty: 20 0RF ondansetron HCl [Zofran] 4 mg tablet 4 mg PO Q8H PRN (Reason: nausea and vomiting) Qty: 14 0RF cefuroxime axetil 500 mg tablet 500 mg PO BID 7 Days Qty: 14 0RF meclizine 25 mg tablet 25 mg PO TID PRN (Reason: dizziness) Qty: 10 0RF levofloxacin 500 mg tablet 500 mg PO DAILY 7 Days Qty: 7 0RF cefuroxime axetil 500 mg tablet 500 mg PO BID 10 Days Qty: 20 0RF alprazolam 0.25 mg tablet 0.25 mg PO QID Qty: 7 0RF levofloxacin 500 mg tablet 500 mg PO DAILY Qty: 6 0RF Rx Instructions: start on 08/26 ofloxacin 0.3 % drops 10 drp otic (ears) DAILY 7 Days Qty: 5 0RF Rx Instructions: can substitute eye drops if necessary hydrocortisone 2.5 % cream with perineal applicator 1 appl CO BEDTIME PRN (Reason: hemorrhoids) Qty: 30 0RF Hemorrhoidal(PE-min oil-emma) 0.25-14-74.9 % ointment 1 appl CO BID PRN (Reason: hemorrhoids) Qty: 56 0RF polyethylene glycol 3350 [Miralax] 17 gram/dose powder 17 g PO BID Qty: 119 0RF docusate sodium [Colace] 100 mg capsule 100 mg PO BID PRN (Reason: Constipation) Qty: 14 0RF ofloxacin 0.3 % drops 5 drp otic (ear) left BID 7 Days Qty: 5 0RF alprazolam 0.25 mg tablet 0.25 mg PO TID PRN (Reason: anxiety) Qty: 7 0RF alprazolam [Xanax] 0.5 mg tablet 0.5 mg PO BEDTIME PRN (Reason: anxiety) Qty: 7 0RF metoprolol succinate 50 mg tablet extended release 24 hr 50 mg PO DAILY Qty: 7 0RF alprazolam 0.25 mg tablet 0.25 mg PO TID PRN (Reason: anxiety) Qty: 3 0RF Calmoseptine 0.44-20.6 % ointment 1 appl topical QID PRN (Reason: skin irritation) Qty: 113 0RF magnesium citrate Solution 150 ml PO DAILY PRN (Reason: constipation) Qty: 296 0RF Rx Instructions: take only when needed for constipation hydrocortisone acetate [Anucort-HC] 25 mg suppository 25 mg CO BID Qty: 12 3RF zolpidem [Ambien] 5 mg tablet 5 mg PO BEDTIME PRN (Reason: sleep) Qty: 2 0RF zolpidem [Ambien] 5 mg tablet 5 mg PO BEDTIME PRN (Reason: sleep) Qty: 2 0RF
[2023-07-01] MEDS: ALPRAZolam 0.5 MG TABLET PO (02:14)
--- NOTE | 2023-07-01 02:14 | PC.NURSE ---
Assumed care of pt. Pt endorsing chronic anxiety, states her prescriber will be changing her dose to increase for better control at some undisclosed date.
[2023-07-01 02:46] VITALS: BP 150/76; PULSE 75; RESP 18; O2SAT 100
== END 2023-07-01 03:09 | disposition home or self-care (01) ==
PROVIDERS: Emergency Provider Emergency Medicine
DX: F41.1 Generalized anxiety disorder (principal); F43.0 Acute stress reaction; R06.4 Hyperventilation; F41.0 Panic disorder [episodic paroxysmal anxiety]; I10 Essential (primary) hypertension; Z79.899 Other long term (current) drug therapy
CPT/HCPCS: 99283; 99284

== ENCOUNTER 2023-07-06 01:52 | Emergency (ER) | payer OTHER, SELFPAY ==
[2023-07-06 01:55] VITALS: BP 173/81; BP 190/87; PULSE 116; PULSE 84; RESP 18; TEMP 36.8; O2SAT 97; O2SAT 98; BMI 26.5
[2023-07-06 02:14] VITALS: BP 164/81; PULSE 83; RESP 16; TEMP 37.3; O2SAT 97
--- NOTE | 2023-07-06 02:39 | ED.ABDPAIN ---
HPI - Abdominal Pain General Chief Complaint: Abdominal Pain Stated Complaint: abd pain Time Seen by Provider: 07/06/23 02:00 Source: patient Limitations: no limitations History of Present Illness HPI narrative: 77-year-old female presents with abdominal pain. The abdominal pain is generalized. Started a few days ago. It is not associated with vomiting but does have some mild nausea. She denies any fevers or chills. The pain does not radiate. The pain is burning in nature. She does report urinary hesitancy but she just had a urinalysis which was unremarkable. Blood work was also noted to be unremarkable in COVID negative. Patient noted that her blood pressure was elevated home and she became more anxious and nervous about it. She does have alprazolam at home and she takes that 5 times a day. She reports having that medication at home. She requests a dose of clonazepam. At this point, her symptoms are mild to moderate. Her symptoms are reportedly worse when her blood pressure is elevated. There are better when taking clonazepam or benzodiazepines. Patient denies any chest pain or shortness of breath. Related Data Home Medications Medication Instructions Recorded Confirmed alprazolam 0.5 mg tablet 0.5 mg PO TID PRN Anxiety 08/09/20 02/06/23 aripiprazole 2 mg tablet 2 mg PO BEDTIME 08/09/20 02/06/23 cholecalciferol (vitamin D3) 25 25 mcg PO BID 08/09/20 02/06/23 mcg (1,000 unit) tablet hydroxyzine HCl 50 mg tablet 50 mg PO TID PRN Anxiety 08/09/20 02/06/23 linaclotide 145 mcg capsule 145 mcg PO DAILY 08/09/20 02/06/23 mirtazapine 45 mg tablet 45 mg PO BEDTIME 08/09/20 02/06/23 multivitamin 1 cap PO DAILY 08/09/20 02/06/23 omeprazole 20 mg tablet,delayed 20 mg PO DAILY 08/09/20 02/06/23 release sertraline 50 mg tablet 50 mg PO BEDTIME 08/09/20 02/06/23 Previous Rx's Medication Instructions Recorded escitalopram oxalate 10 mg tablet 10 mg PO DAILY #30 tabs 09/06/20 acetaminophen 325 mg capsule 325 mg PO QID PRN fever or pain 09/16/20 #30 caps aspirin 81 mg tablet,delayed 81 mg PO BEDTIME #90 tabs 09/28/20 release metoprolol succinate 50 mg 50 mg PO DAILY #90 tabs 09/28/20 tablet,extended release 24 hr menthol 0.44 %-zinc oxide 20.6 % 1 appl topical QID PRN skin 12/13/20 topical ointment (Calmoseptine) irritation #113 grams magnesium citrate 150 ml PO DAILY PRN constipation 12/14/20 #296 mL diphenhydramine HCl 25 mg capsule 25 mg PO BEDTIME insomnia #7 caps 12/25/20 (Benadryl) melatonin 10 mg tablet,extended 10 mg PO .nightly #5 tabs 01/07/21 release cefdinir 300 mg capsule 300 mg PO BID Otitis media 10 days 04/14/21 #20 caps ondansetron HCl 4 mg tablet 4 mg PO Q8H PRN nausea and 04/14/21 (Zofran) vomiting #14 tabs metoprolol succinate 50 mg 50 mg PO DAILY #14 tabs 05/22/21 tablet,extended release 24 hr ciprofloxacin 0.3 %-dexamethasone 4 drp otic (ears) BID 7 days 05/26/21 0.1 % ear drops,suspension (Ciprodex) polyethylene glycol 3350 17 17 g PO DAILY PRN constipation 07/31/21 gram/dose oral powder (Miralax) #238 grams hydrocortisone acetate 25 mg 25 mg HI BID #12 ea 08/01/21 rectal suppository (Anucort-HC) cefuroxime axetil 500 mg tablet 500 mg PO BID 7 days #14 tabs 09/01/21 meclizine 25 mg tablet 25 mg PO TID PRN dizziness #10 tabs 09/01/21 zolpidem 5 mg tablet (Ambien) 5 mg PO BEDTIME PRN sleep #2 tabs 10/29/21 zolpidem 5 mg tablet (Ambien) 5 mg PO BEDTIME PRN sleep #2 tabs 10/29/21 levofloxacin 500 mg tablet 500 mg PO DAILY 7 days #7 tabs 07/23/22 levofloxacin 500 mg tablet 500 mg PO DAILY #6 tabs 08/25/22 ofloxacin 0.3 % ear drops 10 drp otic (ears) DAILY 7 days #5 08/25/22 mL hydrocortisone 2.5 % topical cream 1 appl HI BEDTIME PRN hemorrhoids 09/20/22 with perineal applicator #30 grams docusate sodium 100 mg capsule 100 mg PO BID PRN Constipation #14 12/06/22 (Colace) caps phenylephrine 0.25 %-mineral oil 1 appl HI BID PRN hemorrhoids #56 12/06/22 14 %-petrolatm 74.9 % rectal grams ointment (Hemorrhoidal(phenyleph-min oil-petrolat)) polyethylene glycol 3350 17 17 g PO BID #119 grams 12/06/22 gram/dose oral powder (Miralax) cefuroxime axetil 500 mg tablet 500 mg PO BID 10 days #20 tabs 12/16/22 alprazolam 0.25 mg tablet 0.25 mg PO QID #7 tabs 01/04/23 ofloxacin 0.3 % ear drops 5 drp otic (ear) left BID 7 days 01/06/23 #5 mL alprazolam 0.25 mg tablet 0.25 mg PO TID PRN anxiety #7 tabs 01/11/23 alprazolam 0.25 mg tablet 0.25 mg PO TID PRN anxiety #3 tabs 02/02/23 alprazolam 0.5 mg tablet (Xanax) 0.5 mg PO BEDTIME PRN anxiety #7 04/20/23 tabs metoprolol succinate 50 mg 50 mg PO DAILY #7 tabs 05/18/23 tablet,extended release 24 hr lisinopril 40 mg tablet 40 mg PO QPM #90 tabs 05/22/23 Allergies Allergy/AdvReac Type Severity Reaction Status Date / Time penicillin G [Penicillin G] Allergy Severe ITCHY/RASH Verified 06/30/23 23:01 Sulfa (Sulfonamide Allergy Severe ITCHY,RASH, Verified 06/30/23 23:01 Antibiotics) rash [Sulfa (Sulfonamides)] trimethoprim [From Bactrim] Allergy Severe HIVES Verified 06/30/23 23:01 penicillin V Allergy Unknown rash Verified 06/30/23 23:01 sulfacetamide Allergy Unknown unknown Verified 06/30/23 23:01 [From Sulfacet-R] sulfur [From Sulfacet-R] Allergy Unknown unknown Verified 06/30/23 23:01 Review of Systems Review of Systems CONSTITUTIONAL: Denies weight loss, fever and chills. HEENT: Denies changes in vision and hearing. RESPIRATORY: Denies SOB and cough. CV: Denies palpitations no CP. GI: + abdominal pain, nausea,- vomiting and diarrhea. : Denies dysuria and urinary frequency. MSK: Denies myalgia and joint pain. SKIN: Denies rash and pruritus. NEUROLOGICAL: Denies headache and syncope. PSYCHIATRIC: Denies recent changes in mood. + anxiety All other ROS are negative unless in HPI PMFSH Past Medical History Medical History Anxiety Arthritis Bleeding hemorrhoids Chronic constipation Dementia Essential hypertension High blood pressure PAC (premature atrial contraction) PVC (premature ventricular contraction) SVT (supraventricular tachycardia) Vertigo Surgical History No pertinent past surgical history Social History Social History Alcohol intake: never Patient Tobacco Use Status: Never used Tobacco Advance Directives: No Advance Directives Information Provided: Yes Physical Exam ED Vital Signs: Vital Signs - 24 hr 07/06/23 01:55 07/06/23 02:14 Temperature 98.3 F 99.2 F Pulse Rate 84 83 Respiratory Rate 18 16 Blood Pressure 173/81 H 164/81 H Pulse Oximetry 97 97 Oxygen Delivery Method Room Air Room Air BMI result Body Mass Index 26.5 GEN: Well developed, no acute distress, alert, oriented HEENT: Normocephalic, atraumatic, normal external ears, nose appears normal, no oropharyngeal edema or exudates Eyes: Normal to appearance Neck: Supple, no lymphadenopathy Respiratory: Talks in complete sentences, no respiratory distress, clear to auscultation bilaterally Cardiovascular: Regular rate and rhythm, no murmurs rubs or gallops Abdomen: Soft, nontender, nondistended, no guarding, no rebound Back: No CVA tenderness Extremities: No clubbing cyanosis or edema Neurologic: No focal neurologic deficits, cranial nerves 2-12 intact, strength is 5/5 bilaterally Skin: No rash Medical Decision Making Medical Decision Making MDM Narrative: 77-year-old female presents with abdominal pain and nausea associated with anxiety and elevated blood pressure. On my exam, she had her belly is nontender, no rebound or guarding. She has no additional significant new symptoms. Her blood pressure is mildly elevated. I am sure this is a combination of anxiety as well as benzodiazepine seeking behavior and reassurance that she is okay. I will provide the patient with 1 dose of clonazepam. She has alprazolam at home which she can continue the Zofran and Tylenol. She can follow up with her primary care provider as needed. As she has chronic significant benzodiazepine use, these medications should only be prescribed by her primary care provider. I have recommended to her in the past that she consider a longer acting medication similar to clonazepam, Valium or lorazepam. She will talk with her provider about this. Differential Diagnosis Differential Diagnoses: The differential diagnosis associated with the presentation includes (Anxiety, stress, mood disorder, abdominal discomfort) Prescription Management I considered prescription management with: Pain Medication Discharge Plan Discharge Clinical Impression: Essential hypertension, Generalized anxiety disorder with panic attacks, Abdominal pain Patient Disposition: Home, Self-Care Instructions: Abdominal Pain (ED), Hypertension (ED), Panic Attack (ED), Anxiety (ED) Prescriptions: No Action escitalopram oxalate 10 mg tablet 10 mg PO DAILY Qty: 30 1RF metoprolol succinate 50 mg tablet extended release 24 hr 50 mg PO DAILY Qty: 90 2RF aspirin 81 mg tablet,delayed release (DR/EC) 81 mg PO BEDTIME Qty: 90 2RF polyethylene glycol 3350 [Miralax] 17 gram/dose powder 17 g PO DAILY PRN (Reason: constipation) Qty: 238 0RF lisinopril 40 mg tablet 40 mg PO QPM Qty: 90 0RF Rx Instructions: Please call and schedule cardiology appt acetaminophen 325 mg capsule 325 mg PO QID PRN (Reason: fever or pain) Qty: 30 0RF melatonin 10 mg tablet extended release 10 mg PO .nightly Qty: 5 0RF metoprolol succinate 50 mg tablet extended release 24 hr 50 mg PO DAILY Qty: 14 0RF ciprofloxacin-dexamethasone [Ciprodex] 0.3-0.1 % drops,suspension 4 drp otic (ears) BID 7 Days 0RF alprazolam 0.5 mg Tablet 0.5 mg PO TID PRN (Reason: Anxiety) hydroxyzine HCl 50 mg Tablet 50 mg PO TID PRN (Reason: Anxiety) mirtazapine 45 mg Tablet 45 mg PO BEDTIME multivitamin Capsule 1 cap PO DAILY sertraline 50 mg Tablet 50 mg PO BEDTIME aripiprazole 2 mg Tablet 2 mg PO BEDTIME cholecalciferol (vitamin D3) 25 mcg (1,000 unit) Tablet 25 mcg PO BID omeprazole 20 mg Tablet,Delayed Release (Dr/Ec) 20 mg PO DAILY linaclotide 145 mcg Capsule 145 mcg PO DAILY diphenhydramine HCl [Benadryl] 25 mg capsule 25 mg PO BEDTIME Qty: 7 0RF cefdinir 300 mg capsule 300 mg PO BID 10 Days Qty: 20 0RF ondansetron HCl [Zofran] 4 mg tablet 4 mg PO Q8H PRN (Reason: nausea and vomiting) Qty: 14 0RF cefuroxime axetil 500 mg tablet 500 mg PO BID 7 Days Qty: 14 0RF meclizine 25 mg tablet 25 mg PO TID PRN (Reason: dizziness) Qty: 10 0RF levofloxacin 500 mg tablet 500 mg PO DAILY 7 Days Qty: 7 0RF cefuroxime axetil 500 mg tablet 500 mg PO BID 10 Days Qty: 20 0RF alprazolam 0.25 mg tablet 0.25 mg PO QID Qty: 7 0RF levofloxacin 500 mg tablet 500 mg PO DAILY Qty: 6 0RF Rx Instructions: start on 08/26 ofloxacin 0.3 % drops 10 drp otic (ears) DAILY 7 Days Qty: 5 0RF Rx Instructions: can substitute eye drops if necessary hydrocortisone 2.5 % cream with perineal applicator 1 appl HI BEDTIME PRN (Reason: hemorrhoids) Qty: 30 0RF Hemorrhoidal(PE-min oil-emma) 0.25-14-74.9 % ointment 1 appl HI BID PRN (Reason: hemorrhoids) Qty: 56 0RF polyethylene glycol 3350 [Miralax] 17 gram/dose powder 17 g PO BID Qty: 119 0RF docusate sodium [Colace] 100 mg capsule 100 mg PO BID PRN (Reason: Constipation) Qty: 14 0RF ofloxacin 0.3 % drops 5 drp otic (ear) left BID 7 Days Qty: 5 0RF alprazolam 0.25 mg tablet 0.25 mg PO TID PRN (Reason: anxiety) Qty: 7 0RF alprazolam [Xanax] 0.5 mg tablet 0.5 mg PO BEDTIME PRN (Reason: anxiety) Qty: 7 0RF metoprolol succinate 50 mg tablet extended release 24 hr 50 mg PO DAILY Qty: 7 0RF alprazolam 0.25 mg tablet 0.25 mg PO TID PRN (Reason: anxiety) Qty: 3 0RF Calmoseptine 0.44-20.6 % ointment 1 appl topical QID PRN (Reason: skin irritation) Qty: 113 0RF magnesium citrate Solution 150 ml PO DAILY PRN (Reason: constipation) Qty: 296 0RF Rx Instructions: take only when needed for constipation hydrocortisone acetate [Anucort-HC] 25 mg suppository 25 mg HI BID Qty: 12 3RF zolpidem [Ambien] 5 mg tablet 5 mg PO BEDTIME PRN (Reason: sleep) Qty: 2 0RF zolpidem [Ambien] 5 mg tablet 5 mg PO BEDTIME PRN (Reason: sleep) Qty: 2 0RF Referrals: Physician,Unknown J [Primary Care Provider] - (Primary care provider) Print Language: Macedonian
[2023-07-06] MEDS: Acetaminophen 325 MG TABLET 975 MG PO (02:47)
[2023-07-06] MEDS: Ondansetron ODT 4 MG TAB.RAPDIS TRANSLINGU (02:47)
[2023-07-06] MEDS: clonazePAM 1 MG TABLET PO (02:47)
== END 2023-07-06 03:32 | disposition home or self-care (01) ==
PROVIDERS: Emergency Provider Emergency Medicine
DX: I10 Essential (primary) hypertension (principal); R10.9 Unspecified abdominal pain; R11.0 Nausea; F41.0 Panic disorder [episodic paroxysmal anxiety]; F41.1 Generalized anxiety disorder
CPT/HCPCS: 99283

== ENCOUNTER 2023-07-14 04:18 | Emergency (ER) | payer OTHER, SELFPAY ==
[2023-07-14 04:21] VITALS: BP 146/60; PULSE 125; O2SAT 98
[2023-07-14 04:29] VITALS: BP 132/69; PULSE 84; RESP 18; TEMP 37.2; O2SAT 99; BMI 26.5
[2023-07-14 04:31] VITALS: BP 132/69; PULSE 84; RESP 18; TEMP 37.2; O2SAT 99
--- NOTE | 2023-07-14 06:30 | ED_ITS ---
HPI - Anxiety General Chief Complaint: Anxiety Stated Complaint: anxiety Time Seen by Provider: 07/14/23 06:30 Source: patient Mode of arrival: EMS History of Present Illness HPI narrative: 77-year-old female presents with anxiety denies any fever, chills, shortness of breath and states that she ran out of her Xanax at home. Related Data Home Medications Medication Instructions Recorded Confirmed alprazolam 0.5 mg tablet 0.5 mg PO TID PRN Anxiety 08/09/20 02/06/23 aripiprazole 2 mg tablet 2 mg PO BEDTIME 08/09/20 02/06/23 cholecalciferol (vitamin D3) 25 25 mcg PO BID 08/09/20 02/06/23 mcg (1,000 unit) tablet hydroxyzine HCl 50 mg tablet 50 mg PO TID PRN Anxiety 08/09/20 02/06/23 linaclotide 145 mcg capsule 145 mcg PO DAILY 08/09/20 02/06/23 mirtazapine 45 mg tablet 45 mg PO BEDTIME 08/09/20 02/06/23 multivitamin 1 cap PO DAILY 08/09/20 02/06/23 omeprazole 20 mg tablet,delayed 20 mg PO DAILY 08/09/20 02/06/23 release sertraline 50 mg tablet 50 mg PO BEDTIME 08/09/20 02/06/23 Previous Rx's Medication Instructions Recorded escitalopram oxalate 10 mg tablet 10 mg PO DAILY #30 tabs 09/06/20 acetaminophen 325 mg capsule 325 mg PO QID PRN fever or pain 09/16/20 #30 caps aspirin 81 mg tablet,delayed 81 mg PO BEDTIME #90 tabs 09/28/20 release metoprolol succinate 50 mg 50 mg PO DAILY #90 tabs 09/28/20 tablet,extended release 24 hr menthol 0.44 %-zinc oxide 20.6 % 1 appl topical QID PRN skin 12/13/20 topical ointment (Calmoseptine) irritation #113 grams magnesium citrate 150 ml PO DAILY PRN constipation 12/14/20 #296 mL diphenhydramine HCl 25 mg capsule 25 mg PO BEDTIME insomnia #7 caps 12/25/20 (Benadryl) melatonin 10 mg tablet,extended 10 mg PO .nightly #5 tabs 01/07/21 release cefdinir 300 mg capsule 300 mg PO BID Otitis media 10 days 04/14/21 #20 caps ondansetron HCl 4 mg tablet 4 mg PO Q8H PRN nausea and 04/14/21 (Zofran) vomiting #14 tabs metoprolol succinate 50 mg 50 mg PO DAILY #14 tabs 05/22/21 tablet,extended release 24 hr ciprofloxacin 0.3 %-dexamethasone 4 drp otic (ears) BID 7 days 05/26/21 0.1 % ear drops,suspension (Ciprodex) polyethylene glycol 3350 17 17 g PO DAILY PRN constipation 07/31/21 gram/dose oral powder (Miralax) #238 grams hydrocortisone acetate 25 mg 25 mg [place] BID #12 ea 08/01/21 rectal suppository (Anucort-HC) cefuroxime axetil 500 mg tablet 500 mg PO BID 7 days #14 tabs 09/01/21 meclizine 25 mg tablet 25 mg PO TID PRN dizziness #10 tabs 09/01/21 zolpidem 5 mg tablet (Ambien) 5 mg PO BEDTIME PRN sleep #2 tabs 10/29/21 zolpidem 5 mg tablet (Ambien) 5 mg PO BEDTIME PRN sleep #2 tabs 10/29/21 levofloxacin 500 mg tablet 500 mg PO DAILY 7 days #7 tabs 07/23/22 levofloxacin 500 mg tablet 500 mg PO DAILY #6 tabs 08/25/22 ofloxacin 0.3 % ear drops 10 drp otic (ears) DAILY 7 days #5 08/25/22 mL hydrocortisone 2.5 % topical cream 1 appl [place] BEDTIME PRN hemorrhoids 09/20/22 with perineal applicator #30 grams docusate sodium 100 mg capsule 100 mg PO BID PRN Constipation #14 12/06/22 (Colace) caps phenylephrine 0.25 %-mineral oil 1 appl [place] BID PRN hemorrhoids #56 12/06/22 14 %-petrolatm 74.9 % rectal grams ointment (Hemorrhoidal(phenyleph-min oil-petrolat)) polyethylene glycol 3350 17 17 g PO BID #119 grams 12/06/22 gram/dose oral powder (Miralax) cefuroxime axetil 500 mg tablet 500 mg PO BID 10 days #20 tabs 12/16/22 alprazolam 0.25 mg tablet 0.25 mg PO QID #7 tabs 01/04/23 ofloxacin 0.3 % ear drops 5 drp otic (ear) left BID 7 days 01/06/23 #5 mL alprazolam 0.25 mg tablet 0.25 mg PO TID PRN anxiety #7 tabs 01/11/23 alprazolam 0.25 mg tablet 0.25 mg PO TID PRN anxiety #3 tabs 02/02/23 alprazolam 0.5 mg tablet (Xanax) 0.5 mg PO BEDTIME PRN anxiety #7 04/20/23 tabs metoprolol succinate 50 mg 50 mg PO DAILY #7 tabs 05/18/23 tablet,extended release 24 hr lisinopril 40 mg tablet 40 mg PO QPM #90 tabs 05/22/23 ondansetron 4 mg disintegrating 4 mg PO Q8H PRN nausea and 07/06/23 tablet vomiting #10 tabs Allergies Allergy/AdvReac Type Severity Reaction Status Date / Time penicillin G [Penicillin G] Allergy Severe ITCHY/RASH Verified 06/30/23 23:01 Sulfa (Sulfonamide Allergy Severe ITCHY,RASH, Verified 06/30/23 23:01 Antibiotics) rash [Sulfa (Sulfonamides)] trimethoprim [From Bactrim] Allergy Severe HIVES Verified 06/30/23 23:01 penicillin V Allergy Unknown rash Verified 06/30/23 23:01 sulfacetamide Allergy Unknown unknown Verified 06/30/23 23:01 [From Sulfacet-R] sulfur [From Sulfacet-R] Allergy Unknown unknown Verified 06/30/23 23:01 Review of Systems Review of Systems: Pertinent positives and negatives as stated in HPI [facility] Past Medical History Source: nursing notes reviewed Medical History Anxiety Arthritis Bleeding hemorrhoids Chronic constipation Dementia Essential hypertension High blood pressure PAC (premature atrial contraction) PVC (premature ventricular contraction) SVT (supraventricular tachycardia) Vertigo Surgical History No pertinent past surgical history Social History Social History Alcohol intake: never Patient Tobacco Use Status: Never used Tobacco Smoked in Last 30 Days: No Use of substances other than those prescribed or required for medical reasons: No Advance Directives: No Advance Directives Information Provided: No Physical Exam Vital Signs: Vital Signs: Last Vital Signs Temp 98.9 F 07/14/23 04:31 Pulse 84 07/14/23 04:31 Resp 18 07/14/23 04:31 BP 132/69 07/14/23 04:31 Pulse Ox 99 07/14/23 04:31 O2 Del Method Room Air 07/14/23 04:31 BMI result Body Mass Index 26.5 VITAL SIGNS: Reviewed. GENERAL: Well developed, well nourished, in no acute distress. HEAD: Normocephalic/atraumatic EYES: PERRLA, EOMI LUNGS: Normal breath sounds. No adventitious sounds or accessory muscle use. SpO2<99> CARDIOVASCULAR: Regular rate and rhythm without noted murmurs ABDOMEN: Soft, non-tender, non-distended with bowel sounds. SKIN: Inspection of the skin reveals no rashes NEUROLOGIC: Alert and oriented x 4. Strength and sensation to light touch were grossly intact x 4. Medications Administered Discontinued Medications Generic Name Dose Route Start Last Admin Trade Name Freq PRN Reason Stop Dose Admin Hydroxyzine HCl 25 mg 07/14/23 06:30 07/14/23 06:36 Hydroxyzine Hcl 25 Mg Tablet PO 07/14/23 06:31 25 mg ONCE ONE Administration Medical Decision Making Medical Decision Making MDM Narrative: 77-year-old female with history and clinical presentation of sometimes running out of her anti anxiety medications, I did offer her 25 mg of hydroxyzine to bridge her symptomatic anxiety until she picks up her prescription. She is otherwise discharged home. Discharge Plan Discharge Clinical Impression: Anxiety Patient Disposition: Home, Self-Care Instructions: Anxiety (ED) Additional Instructions: Return to the ER for any worsening symptoms. Prescriptions: No Action escitalopram oxalate 10 mg tablet 10 mg PO DAILY Qty: 30 1RF metoprolol succinate 50 mg tablet extended release 24 hr 50 mg PO DAILY Qty: 90 2RF aspirin 81 mg tablet,delayed release (DR/EC) 81 mg PO BEDTIME Qty: 90 2RF polyethylene glycol 3350 [Miralax] 17 gram/dose powder 17 g PO DAILY PRN (Reason: constipation) Qty: 238 0RF lisinopril 40 mg tablet 40 mg PO QPM Qty: 90 0RF Rx Instructions: Please call and schedule cardiology appt acetaminophen 325 mg capsule 325 mg PO QID PRN (Reason: fever or pain) Qty: 30 0RF melatonin 10 mg tablet extended release 10 mg PO .nightly Qty: 5 0RF metoprolol succinate 50 mg tablet extended release 24 hr 50 mg PO DAILY Qty: 14 0RF ciprofloxacin-dexamethasone [Ciprodex] 0.3-0.1 % drops,suspension 4 drp otic (ears) BID 7 Days 0RF alprazolam 0.5 mg Tablet 0.5 mg PO TID PRN (Reason: Anxiety) hydroxyzine HCl 50 mg Tablet 50 mg PO TID PRN (Reason: Anxiety) mirtazapine 45 mg Tablet 45 mg PO BEDTIME multivitamin Capsule 1 cap PO DAILY sertraline 50 mg Tablet 50 mg PO BEDTIME aripiprazole 2 mg Tablet 2 mg PO BEDTIME cholecalciferol (vitamin D3) 25 mcg (1,000 unit) Tablet 25 mcg PO BID omeprazole 20 mg Tablet,Delayed Release (Dr/Ec) 20 mg PO DAILY linaclotide 145 mcg Capsule 145 mcg PO DAILY diphenhydramine HCl [Benadryl] 25 mg capsule 25 mg PO BEDTIME Qty: 7 0RF cefdinir 300 mg capsule 300 mg PO BID 10 Days Qty: 20 0RF ondansetron HCl [Zofran] 4 mg tablet 4 mg PO Q8H PRN (Reason: nausea and vomiting) Qty: 14 0RF cefuroxime axetil 500 mg tablet 500 mg PO BID 7 Days Qty: 14 0RF meclizine 25 mg tablet 25 mg PO TID PRN (Reason: dizziness) Qty: 10 0RF levofloxacin 500 mg tablet 500 mg PO DAILY 7 Days Qty: 7 0RF cefuroxime axetil 500 mg tablet 500 mg PO BID 10 Days Qty: 20 0RF alprazolam 0.25 mg tablet 0.25 mg PO QID Qty: 7 0RF levofloxacin 500 mg tablet 500 mg PO DAILY Qty: 6 0RF Rx Instructions: start on 08/26 ofloxacin 0.3 % drops 10 drp otic (ears) DAILY 7 Days Qty: 5 0RF Rx Instructions: can substitute eye drops if necessary hydrocortisone 2.5 % cream with perineal applicator 1 appl [place] BEDTIME PRN (Reason: hemorrhoids) Qty: 30 0RF Hemorrhoidal(PE-min oil-emma) 0.25-14-74.9 % ointment 1 appl [place] BID PRN (Reason: hemorrhoids) Qty: 56 0RF polyethylene glycol 3350 [Miralax] 17 gram/dose powder 17 g PO BID Qty: 119 0RF docusate sodium [Colace] 100 mg capsule 100 mg PO BID PRN (Reason: Constipation) Qty: 14 0RF ofloxacin 0.3 % drops 5 drp otic (ear) left BID 7 Days Qty: 5 0RF alprazolam 0.25 mg tablet 0.25 mg PO TID PRN (Reason: anxiety) Qty: 7 0RF alprazolam [Xanax] 0.5 mg tablet 0.5 mg PO BEDTIME PRN (Reason: anxiety) Qty: 7 0RF metoprolol succinate 50 mg tablet extended release 24 hr 50 mg PO DAILY Qty: 7 0RF alprazolam 0.25 mg tablet 0.25 mg PO TID PRN (Reason: anxiety) Qty: 3 0RF ondansetron 4 mg tablet,disintegrating 4 mg PO Q8H PRN (Reason: nausea and vomiting) Qty: 10 0RF Calmoseptine 0.44-20.6 % ointment 1 appl topical QID PRN (Reason: skin irritation) Qty: 113 0RF magnesium citrate Solution 150 ml PO DAILY PRN (Reason: constipation) Qty: 296 0RF Rx Instructions: take only when needed for constipation hydrocortisone acetate [Anucort-HC] 25 mg suppository 25 mg [place] BID Qty: 12 3RF zolpidem [Ambien] 5 mg tablet 5 mg PO BEDTIME PRN (Reason: sleep) Qty: 2 0RF zolpidem [Ambien] 5 mg tablet 5 mg PO BEDTIME PRN (Reason: sleep) Qty: 2 0RF Referrals: Name,MD Nitin [Primary Care Provider] - Interventions: ED Discharge Assessment Last Done: 07/14/23 06:38 Discharge Date/Time: 07/14/23 06:38 Print Language: Kinyarwanda
[2023-07-14] MEDS: hydrOXYzine HCL 25 MG TABLET PO (06:36)
== END 2023-07-14 06:38 | disposition home or self-care (01) ==
PROVIDERS: Emergency Provider Student in an Organized Health Care Education/Training Program; PCP Internal Medicine Geriatric Medicine
DX: F41.1 Generalized anxiety disorder (principal); F43.0 Acute stress reaction; Z79.899 Other long term (current) drug therapy
CPT/HCPCS: 99283; 99284

== ENCOUNTER 2023-07-31 06:42 | Emergency (ER) | payer OTHER, SELFPAY ==
[2023-07-31 06:44] VITALS: BP 152/86; PULSE 88; O2SAT 99
[2023-07-31 06:49] VITALS: BP 156/76; PULSE 84; RESP 18; TEMP 36.6; O2SAT 99; BMI 29.0
--- NOTE | 2023-07-31 07:03 | ED_ITS ---
HPI - Anxiety General Chief Complaint: Anxiety Stated Complaint: Anxiety Time Seen by Provider: 07/31/23 06:58 Source: patient Mode of arrival: EMS Limitations: no limitations History of Present Illness HPI narrative: Patient comes to the emergency room complaining of anxiety. Patient states that she has alprazolam at home. However, clonazepam works best for her. Patient requesting to have her prescription changed to clonazepam. Patient has no other complaints. Related Data Home Medications Medication Instructions Recorded Confirmed alprazolam 0.5 mg tablet 0.5 mg PO TID PRN Anxiety 08/09/20 02/06/23 aripiprazole 2 mg tablet 2 mg PO BEDTIME 08/09/20 02/06/23 cholecalciferol (vitamin D3) 25 25 mcg PO BID 08/09/20 02/06/23 mcg (1,000 unit) tablet hydroxyzine HCl 50 mg tablet 50 mg PO TID PRN Anxiety 08/09/20 02/06/23 linaclotide 145 mcg capsule 145 mcg PO DAILY 08/09/20 02/06/23 mirtazapine 45 mg tablet 45 mg PO BEDTIME 08/09/20 02/06/23 multivitamin 1 cap PO DAILY 08/09/20 02/06/23 omeprazole 20 mg tablet,delayed 20 mg PO DAILY 08/09/20 02/06/23 release sertraline 50 mg tablet 50 mg PO BEDTIME 08/09/20 02/06/23 Previous Rx's Medication Instructions Recorded escitalopram oxalate 10 mg tablet 10 mg PO DAILY #30 tabs 09/06/20 acetaminophen 325 mg capsule 325 mg PO QID PRN fever or pain 09/16/20 #30 caps aspirin 81 mg tablet,delayed 81 mg PO BEDTIME #90 tabs 09/28/20 release metoprolol succinate 50 mg 50 mg PO DAILY #90 tabs 09/28/20 tablet,extended release 24 hr menthol 0.44 %-zinc oxide 20.6 % 1 appl topical QID PRN skin 12/13/20 topical ointment (Calmoseptine) irritation #113 grams magnesium citrate 150 ml PO DAILY PRN constipation 12/14/20 #296 mL diphenhydramine HCl 25 mg capsule 25 mg PO BEDTIME insomnia #7 caps 12/25/20 (Benadryl) melatonin 10 mg tablet,extended 10 mg PO .nightly #5 tabs 01/07/21 release cefdinir 300 mg capsule 300 mg PO BID Otitis media 10 days 04/14/21 #20 caps ondansetron HCl 4 mg tablet 4 mg PO Q8H PRN nausea and 04/14/21 (Zofran) vomiting #14 tabs metoprolol succinate 50 mg 50 mg PO DAILY #14 tabs 05/22/21 tablet,extended release 24 hr ciprofloxacin 0.3 %-dexamethasone 4 drp otic (ears) BID 7 days 05/26/21 0.1 % ear drops,suspension (Ciprodex) polyethylene glycol 3350 17 17 g PO DAILY PRN constipation 07/31/21 gram/dose oral powder (Miralax) #238 grams hydrocortisone acetate 25 mg 25 mg LA BID #12 ea 08/01/21 rectal suppository (Anucort-HC) cefuroxime axetil 500 mg tablet 500 mg PO BID 7 days #14 tabs 09/01/21 meclizine 25 mg tablet 25 mg PO TID PRN dizziness #10 tabs 09/01/21 zolpidem 5 mg tablet (Ambien) 5 mg PO BEDTIME PRN sleep #2 tabs 10/29/21 zolpidem 5 mg tablet (Ambien) 5 mg PO BEDTIME PRN sleep #2 tabs 10/29/21 levofloxacin 500 mg tablet 500 mg PO DAILY 7 days #7 tabs 07/23/22 levofloxacin 500 mg tablet 500 mg PO DAILY #6 tabs 08/25/22 ofloxacin 0.3 % ear drops 10 drp otic (ears) DAILY 7 days #5 08/25/22 mL hydrocortisone 2.5 % topical cream 1 appl LA BEDTIME PRN hemorrhoids 09/20/22 with perineal applicator #30 grams docusate sodium 100 mg capsule 100 mg PO BID PRN Constipation #14 12/06/22 (Colace) caps phenylephrine 0.25 %-mineral oil 1 appl LA BID PRN hemorrhoids #56 12/06/22 14 %-petrolatm 74.9 % rectal grams ointment (Hemorrhoidal(phenyleph-min oil-petrolat)) polyethylene glycol 3350 17 17 g PO BID #119 grams 12/06/22 gram/dose oral powder (Miralax) cefuroxime axetil 500 mg tablet 500 mg PO BID 10 days #20 tabs 12/16/22 alprazolam 0.25 mg tablet 0.25 mg PO QID #7 tabs 01/04/23 ofloxacin 0.3 % ear drops 5 drp otic (ear) left BID 7 days 01/06/23 #5 mL alprazolam 0.25 mg tablet 0.25 mg PO TID PRN anxiety #7 tabs 01/11/23 alprazolam 0.25 mg tablet 0.25 mg PO TID PRN anxiety #3 tabs 02/02/23 alprazolam 0.5 mg tablet (Xanax) 0.5 mg PO BEDTIME PRN anxiety #7 04/20/23 tabs metoprolol succinate 50 mg 50 mg PO DAILY #7 tabs 05/18/23 tablet,extended release 24 hr lisinopril 40 mg tablet 40 mg PO QPM #90 tabs 05/22/23 ondansetron 4 mg disintegrating 4 mg PO Q8H PRN nausea and 07/06/23 tablet vomiting #10 tabs Allergies Allergy/AdvReac Type Severity Reaction Status Date / Time penicillin G [Penicillin G] Allergy Severe ITCHY/RASH Verified 07/31/23 06:48 Sulfa (Sulfonamide Allergy Severe ITCHY,RASH, Verified 07/31/23 06:48 Antibiotics) rash [Sulfa (Sulfonamides)] trimethoprim [From Bactrim] Allergy Severe HIVES Verified 07/31/23 06:48 penicillin V Allergy Unknown rash Verified 07/31/23 06:48 sulfacetamide Allergy Unknown unknown Verified 07/31/23 06:48 [From Sulfacet-R] sulfur [From Sulfacet-R] Allergy Unknown unknown Verified 07/31/23 06:48 Review of Systems Review of Systems: Constitutional : No Weight loss, No Fever, No Chills, No Night Sweats, No Fatigue, No Malaise ENT/Mouth : No Hearing loss, No Ear Pain, No Nasal Congestion, No Sinus Pain, No Hoarseness, No sore throat, No Rhinorrhea, No Swallowing Difficulty Eyes: No Eye Pain, No Swelling, No Redness, No Foreign Body, No Discharge, No Vision Changes Cardiovascular : No Chest Pain, No SOB, No Dyspnea on Exertion, No Orthopnea, No Edema, No Palpitations Respiratory : No Cough, No Sputum, No Wheezing, No Smoke Exposure, No Dyspnea Gastrointestinal : No Nausea, No Vomiting, No Diarrhea, No Constipation, No abdominal Pain, No Hematochezia, No Melena Genitourinary : no irregular bleeding, No Dysuria, No Urinary Frequency, No Hematuria, No Urinary Incontinence, No Urgency, No Flank Pain, No Urinary Flow Changes, No Hesitancy Musculoskeletal : No joint pain, No Myalgias, No Joint Swelling Skin : No Skin Lesions, No rash Neuro : No Weakness, No Numbness, No Paresthesias, No Loss of Consciousness, No Dizziness, No Headache Psych : Complaining of anxiety No Depression, No SI/HI/AH/VH, No Social Issues, Heme/Lymph: No Bruising, No Bleeding,No Lymphadenopathy Endocrine : No Polyuria, No Polydipsia, No Temperature Intolerance [facility] Past Medical History Medical History Bleeding hemorrhoids Essential hypertension PVC (premature ventricular contraction) PAC (premature atrial contraction) SVT (supraventricular tachycardia) Chronic constipation High blood pressure Vertigo Dementia Arthritis Anxiety Surgical History No pertinent past surgical history Social History Social History Alcohol intake: never Patient Tobacco Use Status: Never used Tobacco Physical Exam Vital Signs: Vital Signs: Last Vital Signs Temp 97.8 F 07/31/23 06:49 Pulse 84 07/31/23 06:49 Resp 18 07/31/23 06:49 BP 156/76 H 07/31/23 06:49 Pulse Ox 99 07/31/23 06:49 O2 Del Method Room Air 07/31/23 06:49 BMI result Body Mass Index 29.0 Const: Other: Appearance: Alert. Oriented X3. No acute distress. Eyes: Pupils equal, round and reactive to light. ENT: Pharynx normal. Neck: Normal inspection. Neck supple. No lymph nodes noted. No crepitus CVS: Normal heart rate and rhythm. Pulses normal. Normal S1 and S2 Respiratory: No respiratory distress. Breath sounds normal. No Wheezing. No rales Abdomen: Soft and nontender. No rigidity. No distention. Skin: Skin warm and dry. Normal skin color. Normal skin turgor. Extremities: No lower extremity edema. No Lacerations. No Rash Neuro: Oriented X 3. No motor deficit. No sensory deficit. Moving all extremities. No slurred speech. CN 2 through 12 grossly intact Psych: calm, cooperative, anxious Medical Decision Making Medical Decision Making MDM Narrative: -I discussed with the patient that we can give her a 1 time dose of clonazepam. If she wishes to change her prescription from alprazolam to clonazepam, she needs to speak to her psychiatrist, patient agrees with plan. Discharge Plan Discharge Clinical Impression: Acute anxiety Instructions: Anxiety (ED) Additional Instructions: Please follow-up with your primary care physician tomorrow. If you have any worsening or new symptoms, please return to the emergency room or call 911 Prescriptions: No Action escitalopram oxalate 10 mg tablet 10 mg PO DAILY Qty: 30 1RF metoprolol succinate 50 mg tablet extended release 24 hr 50 mg PO DAILY Qty: 90 2RF aspirin 81 mg tablet,delayed release (DR/EC) 81 mg PO BEDTIME Qty: 90 2RF polyethylene glycol 3350 [Miralax] 17 gram/dose powder 17 g PO DAILY PRN (Reason: constipation) Qty: 238 0RF lisinopril 40 mg tablet 40 mg PO QPM Qty: 90 0RF Rx Instructions: Please call and schedule cardiology appt acetaminophen 325 mg capsule 325 mg PO QID PRN (Reason: fever or pain) Qty: 30 0RF melatonin 10 mg tablet extended release 10 mg PO .nightly Qty: 5 0RF metoprolol succinate 50 mg tablet extended release 24 hr 50 mg PO DAILY Qty: 14 0RF ciprofloxacin-dexamethasone [Ciprodex] 0.3-0.1 % drops,suspension 4 drp otic (ears) BID 7 Days 0RF alprazolam 0.5 mg Tablet 0.5 mg PO TID PRN (Reason: Anxiety) hydroxyzine HCl 50 mg Tablet 50 mg PO TID PRN (Reason: Anxiety) mirtazapine 45 mg Tablet 45 mg PO BEDTIME multivitamin Capsule 1 cap PO DAILY sertraline 50 mg Tablet 50 mg PO BEDTIME aripiprazole 2 mg Tablet 2 mg PO BEDTIME cholecalciferol (vitamin D3) 25 mcg (1,000 unit) Tablet 25 mcg PO BID omeprazole 20 mg Tablet,Delayed Release (Dr/Ec) 20 mg PO DAILY linaclotide 145 mcg Capsule 145 mcg PO DAILY diphenhydramine HCl [Benadryl] 25 mg capsule 25 mg PO BEDTIME Qty: 7 0RF cefdinir 300 mg capsule 300 mg PO BID 10 Days Qty: 20 0RF ondansetron HCl [Zofran] 4 mg tablet 4 mg PO Q8H PRN (Reason: nausea and vomiting) Qty: 14 0RF cefuroxime axetil 500 mg tablet 500 mg PO BID 7 Days Qty: 14 0RF meclizine 25 mg tablet 25 mg PO TID PRN (Reason: dizziness) Qty: 10 0RF levofloxacin 500 mg tablet 500 mg PO DAILY 7 Days Qty: 7 0RF cefuroxime axetil 500 mg tablet 500 mg PO BID 10 Days Qty: 20 0RF alprazolam 0.25 mg tablet 0.25 mg PO QID Qty: 7 0RF levofloxacin 500 mg tablet 500 mg PO DAILY Qty: 6 0RF Rx Instructions: start on 08/26 ofloxacin 0.3 % drops 10 drp otic (ears) DAILY 7 Days Qty: 5 0RF Rx Instructions: can substitute eye drops if necessary hydrocortisone 2.5 % cream with perineal applicator 1 appl LA BEDTIME PRN (Reason: hemorrhoids) Qty: 30 0RF Hemorrhoidal(PE-min oil-emma) 0.25-14-74.9 % ointment 1 appl LA BID PRN (Reason: hemorrhoids) Qty: 56 0RF polyethylene glycol 3350 [Miralax] 17 gram/dose powder 17 g PO BID Qty: 119 0RF docusate sodium [Colace] 100 mg capsule 100 mg PO BID PRN (Reason: Constipation) Qty: 14 0RF ofloxacin 0.3 % drops 5 drp otic (ear) left BID 7 Days Qty: 5 0RF alprazolam 0.25 mg tablet 0.25 mg PO TID PRN (Reason: anxiety) Qty: 7 0RF alprazolam [Xanax] 0.5 mg tablet 0.5 mg PO BEDTIME PRN (Reason: anxiety) Qty: 7 0RF metoprolol succinate 50 mg tablet extended release 24 hr 50 mg PO DAILY Qty: 7 0RF alprazolam 0.25 mg tablet 0.25 mg PO TID PRN (Reason: anxiety) Qty: 3 0RF ondansetron 4 mg tablet,disintegrating 4 mg PO Q8H PRN (Reason: nausea and vomiting) Qty: 10 0RF Calmoseptine 0.44-20.6 % ointment 1 appl topical QID PRN (Reason: skin irritation) Qty: 113 0RF magnesium citrate Solution 150 ml PO DAILY PRN (Reason: constipation) Qty: 296 0RF Rx Instructions: take only when needed for constipation hydrocortisone acetate [Anucort-HC] 25 mg suppository 25 mg LA BID Qty: 12 3RF zolpidem [Ambien] 5 mg tablet 5 mg PO BEDTIME PRN (Reason: sleep) Qty: 2 0RF zolpidem [Ambien] 5 mg tablet 5 mg PO BEDTIME PRN (Reason: sleep) Qty: 2 0RF
[2023-07-31] MEDS: clonazePAM 0.5 MG TABLET PO (07:11)
== END 2023-07-31 07:20 | disposition home or self-care (01) ==
PROVIDERS: Emergency Provider Emergency Medicine; PCP Internal Medicine Geriatric Medicine
DX: F41.9 Anxiety disorder, unspecified (principal); I10 Essential (primary) hypertension; Z79.899 Other long term (current) drug therapy
CPT/HCPCS: 99282; 99283

== ENCOUNTER 2023-08-03 00:53 | Emergency (ER) | payer OTHER, SELFPAY ==
[2023-08-03 00:58] VITALS: BP 110/74; BP 152/69; PULSE 79; PULSE 83; RESP 17; TEMP 36.5; O2SAT 100; O2SAT 97; BMI 33.5
--- NOTE | 2023-08-03 00:58 | ECG_ITS ---
Test Reason : HYPERTENSION Blood Pressure : / mmHG Vent. Rate : 079 BPM Atrial Rate : 079 BPM P-R Int : 174 ms QRS Dur : 098 ms QT Int : 380 ms P-R-T Axes : 050 -27 013 degrees QTc Int : 435 ms Normal sinus rhythm with sinus arrhythmia Moderate voltage criteria for LVH, may be normal variant ( R in aVL , Maycol product ) Borderline ECG When compared with ECG of 20-APR-2023 06:07, No significant change was found Referred By: Marta Briscoe Electronically Signed By:DEANN CISNEROS
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
[2023-08-03] MEDS: Ondansetron ODT 4 MG TAB.RAPDIS TRANSLINGU (01:19)
[2023-08-03] MEDS: clonazePAM 0.5 MG TABLET PO (01:19)
== END 2023-08-03 02:13 | disposition home or self-care (01) ==
PROVIDERS: Emergency Provider Emergency Medicine; PCP Internal Medicine Geriatric Medicine
DX: F41.1 Generalized anxiety disorder (principal); F43.0 Acute stress reaction; Z79.899 Other long term (current) drug therapy
CPT/HCPCS: 93005; 99285

== ENCOUNTER 2023-08-03 04:06 | Emergency (ER) | payer OTHER, SELFPAY ==
[2023-08-03 04:07] VITALS: BP 158/80; PULSE 77; RESP 18; TEMP 36.6; O2SAT 98; BMI 28.0
--- NOTE | 2023-08-03 04:11 | ED_ITS ---
HPI - General Adult General Chief complaint: General Medical Stated complaint: general medical Time Seen by Provider: 08/03/23 04:09 Source: patient Mode of arrival: ambulatory Limitations: no limitations History of Present Illness HPI narrative: Patient rechecking again for anxiety. I saw the patient couple of hours ago. Patient was discharged. Patient could not find a ride home and was in the waiting room, we checked in requesting more benzodiazepines. Patient complaining of anxiety. Related Data Home Medications Medication Instructions Recorded Confirmed alprazolam 0.5 mg tablet 0.5 mg PO TID PRN Anxiety 08/09/20 02/06/23 aripiprazole 2 mg tablet 2 mg PO BEDTIME 08/09/20 02/06/23 cholecalciferol (vitamin D3) 25 25 mcg PO BID 08/09/20 02/06/23 mcg (1,000 unit) tablet hydroxyzine HCl 50 mg tablet 50 mg PO TID PRN Anxiety 08/09/20 02/06/23 linaclotide 145 mcg capsule 145 mcg PO DAILY 08/09/20 02/06/23 mirtazapine 45 mg tablet 45 mg PO BEDTIME 08/09/20 02/06/23 multivitamin 1 cap PO DAILY 08/09/20 02/06/23 omeprazole 20 mg tablet,delayed 20 mg PO DAILY 08/09/20 02/06/23 release sertraline 50 mg tablet 50 mg PO BEDTIME 08/09/20 02/06/23 Previous Rx's Medication Instructions Recorded escitalopram oxalate 10 mg tablet 10 mg PO DAILY #30 tabs 09/06/20 acetaminophen 325 mg capsule 325 mg PO QID PRN fever or pain 09/16/20 #30 caps aspirin 81 mg tablet,delayed 81 mg PO BEDTIME #90 tabs 09/28/20 release metoprolol succinate 50 mg 50 mg PO DAILY #90 tabs 09/28/20 tablet,extended release 24 hr menthol 0.44 %-zinc oxide 20.6 % 1 appl topical QID PRN skin 12/13/20 topical ointment (Calmoseptine) irritation #113 grams magnesium citrate 150 ml PO DAILY PRN constipation 12/14/20 #296 mL diphenhydramine HCl 25 mg capsule 25 mg PO BEDTIME insomnia #7 caps 12/25/20 (Benadryl) melatonin 10 mg tablet,extended 10 mg PO .nightly #5 tabs 01/07/21 release cefdinir 300 mg capsule 300 mg PO BID Otitis media 10 days 04/14/21 #20 caps ondansetron HCl 4 mg tablet 4 mg PO Q8H PRN nausea and 04/14/21 (Zofran) vomiting #14 tabs metoprolol succinate 50 mg 50 mg PO DAILY #14 tabs 05/22/21 tablet,extended release 24 hr ciprofloxacin 0.3 %-dexamethasone 4 drp otic (ears) BID 7 days 05/26/21 0.1 % ear drops,suspension (Ciprodex) polyethylene glycol 3350 17 17 g PO DAILY PRN constipation 07/31/21 gram/dose oral powder (Miralax) #238 grams hydrocortisone acetate 25 mg 25 mg MI BID #12 ea 08/01/21 rectal suppository (Anucort-HC) cefuroxime axetil 500 mg tablet 500 mg PO BID 7 days #14 tabs 09/01/21 meclizine 25 mg tablet 25 mg PO TID PRN dizziness #10 tabs 09/01/21 zolpidem 5 mg tablet (Ambien) 5 mg PO BEDTIME PRN sleep #2 tabs 10/29/21 zolpidem 5 mg tablet (Ambien) 5 mg PO BEDTIME PRN sleep #2 tabs 10/29/21 levofloxacin 500 mg tablet 500 mg PO DAILY 7 days #7 tabs 07/23/22 levofloxacin 500 mg tablet 500 mg PO DAILY #6 tabs 08/25/22 ofloxacin 0.3 % ear drops 10 drp otic (ears) DAILY 7 days #5 08/25/22 mL hydrocortisone 2.5 % topical cream 1 appl MI BEDTIME PRN hemorrhoids 09/20/22 with perineal applicator #30 grams docusate sodium 100 mg capsule 100 mg PO BID PRN Constipation #14 12/06/22 (Colace) caps phenylephrine 0.25 %-mineral oil 1 appl MI BID PRN hemorrhoids #56 12/06/22 14 %-petrolatm 74.9 % rectal grams ointment (Hemorrhoidal(phenyleph-min oil-petrolat)) polyethylene glycol 3350 17 17 g PO BID #119 grams 12/06/22 gram/dose oral powder (Miralax) cefuroxime axetil 500 mg tablet 500 mg PO BID 10 days #20 tabs 12/16/22 alprazolam 0.25 mg tablet 0.25 mg PO QID #7 tabs 01/04/23 ofloxacin 0.3 % ear drops 5 drp otic (ear) left BID 7 days 01/06/23 #5 mL alprazolam 0.25 mg tablet 0.25 mg PO TID PRN anxiety #7 tabs 01/11/23 alprazolam 0.25 mg tablet 0.25 mg PO TID PRN anxiety #3 tabs 02/02/23 alprazolam 0.5 mg tablet (Xanax) 0.5 mg PO BEDTIME PRN anxiety #7 04/20/23 tabs metoprolol succinate 50 mg 50 mg PO DAILY #7 tabs 05/18/23 tablet,extended release 24 hr lisinopril 40 mg tablet 40 mg PO QPM #90 tabs 05/22/23 ondansetron 4 mg disintegrating 4 mg PO Q8H PRN nausea and 07/06/23 tablet vomiting #10 tabs Allergies Allergy/AdvReac Type Severity Reaction Status Date / Time penicillin G [Penicillin G] Allergy Severe ITCHY/RASH Verified 07/31/23 06:48 Sulfa (Sulfonamide Allergy Severe ITCHY,RASH, Verified 07/31/23 06:48 Antibiotics) rash [Sulfa (Sulfonamides)] trimethoprim [From Bactrim] Allergy Severe HIVES Verified 07/31/23 06:48 penicillin V Allergy Unknown rash Verified 07/31/23 06:48 sulfacetamide Allergy Unknown unknown Verified 07/31/23 06:48 [From Sulfacet-R] sulfur [From Sulfacet-R] Allergy Unknown unknown Verified 07/31/23 06:48 Review of Systems Review of Systems: Constitutional : No Weight loss, No Fever, No Chills, No Night Sweats, No Fatigue, No Malaise ENT/Mouth : No Hearing loss, No Ear Pain, No Nasal Congestion, No Sinus Pain, No Hoarseness, No sore throat, No Rhinorrhea, No Swallowing Difficulty Eyes: No Eye Pain, No Swelling, No Redness, No Foreign Body, No Discharge, No Vision Changes Cardiovascular : No Chest Pain, No SOB, No Dyspnea on Exertion, No Orthopnea, No Edema, No Palpitations Respiratory : No Cough, No Sputum, No Wheezing, No Smoke Exposure, No Dyspnea Gastrointestinal : No Nausea, No Vomiting, No Diarrhea, No Constipation, No abdominal Pain, No Hematochezia, No Melena Genitourinary : no irregular bleeding, No Dysuria, No Urinary Frequency, No Hematuria, No Urinary Incontinence, No Urgency, No Flank Pain, No Urinary Flow Changes, No Hesitancy Musculoskeletal : No joint pain, No Myalgias, No Joint Swelling Skin : No Skin Lesions, No rash Neuro : No Weakness, No Numbness, No Paresthesias, No Loss of Consciousness, No Dizziness, No Headache Psych : Complaining of anxiety, No Depression, No SI/HI/AH/VH, No Social Issues, Heme/Lymph: No Bruising, No Bleeding,No Lymphadenopathy Endocrine : No Polyuria, No Polydipsia, No Temperature Intolerance [facility] Past Medical History Medical History Bleeding hemorrhoids Essential hypertension PVC (premature ventricular contraction) PAC (premature atrial contraction) SVT (supraventricular tachycardia) Chronic constipation High blood pressure Vertigo Dementia Arthritis Anxiety Surgical History No pertinent past surgical history Social History Social History Alcohol intake: never Patient Tobacco Use Status: Never used Tobacco Physical Exam ED Vital Signs: Vital Signs - 24 hr 08/03/23 04:07 Temperature 97.8 F Pulse Rate 77 Respiratory Rate 18 Blood Pressure 158/80 H Pulse Oximetry 98 Oxygen Delivery Method Room Air BMI result Body Mass Index 28.0 Const Other: Appearance: Alert. Oriented X3. No acute distress. Eyes: Pupils equal, round and reactive to light. ENT: Pharynx normal. Neck: Normal inspection. Neck supple. No lymph nodes noted. No crepitus CVS: Normal heart rate and rhythm. Pulses normal. Normal S1 and S2 Respiratory: No respiratory distress. Breath sounds normal. No Wheezing. No rales Abdomen: Soft and nontender. No rigidity. No distention. Skin: Skin warm and dry. Normal skin color. Normal skin turgor. Extremities: No lower extremity edema. No Lacerations. No Rash Neuro: Oriented X 3. No motor deficit. No sensory deficit. Moving all extremities. No slurred speech. CN 2 through 12 grossly intact Psych: calm, cooperative, normal affect Medical Decision Making Medical Decision Making MDM Narrative: -I discussed with the patient that at this time we will not be giving her any more benzodiazepines at this time. Patient has a scheduled dose in couple of hours which will be given to her by her visiting nurse. Discharge Plan Discharge Clinical Impression: Acute anxiety Patient Disposition: Home, Self-Care Instructions: Anxiety (ED) Additional Instructions: Please follow-up with your primary care physician tomorrow. If you have any worsening or new symptoms, please return to the emergency room or call 911 Prescriptions: No Action escitalopram oxalate 10 mg tablet 10 mg PO DAILY Qty: 30 1RF metoprolol succinate 50 mg tablet extended release 24 hr 50 mg PO DAILY Qty: 90 2RF aspirin 81 mg tablet,delayed release (DR/EC) 81 mg PO BEDTIME Qty: 90 2RF polyethylene glycol 3350 [Miralax] 17 gram/dose powder 17 g PO DAILY PRN (Reason: constipation) Qty: 238 0RF lisinopril 40 mg tablet 40 mg PO QPM Qty: 90 0RF Rx Instructions: Please call and schedule cardiology appt acetaminophen 325 mg capsule 325 mg PO QID PRN (Reason: fever or pain) Qty: 30 0RF melatonin 10 mg tablet extended release 10 mg PO .nightly Qty: 5 0RF metoprolol succinate 50 mg tablet extended release 24 hr 50 mg PO DAILY Qty: 14 0RF ciprofloxacin-dexamethasone [Ciprodex] 0.3-0.1 % drops,suspension 4 drp otic (ears) BID 7 Days 0RF alprazolam 0.5 mg Tablet 0.5 mg PO TID PRN (Reason: Anxiety) hydroxyzine HCl 50 mg Tablet 50 mg PO TID PRN (Reason: Anxiety) mirtazapine 45 mg Tablet 45 mg PO BEDTIME multivitamin Capsule 1 cap PO DAILY sertraline 50 mg Tablet 50 mg PO BEDTIME aripiprazole 2 mg Tablet 2 mg PO BEDTIME cholecalciferol (vitamin D3) 25 mcg (1,000 unit) Tablet 25 mcg PO BID omeprazole 20 mg Tablet,Delayed Release (Dr/Ec) 20 mg PO DAILY linaclotide 145 mcg Capsule 145 mcg PO DAILY diphenhydramine HCl [Benadryl] 25 mg capsule 25 mg PO BEDTIME Qty: 7 0RF cefdinir 300 mg capsule 300 mg PO BID 10 Days Qty: 20 0RF ondansetron HCl [Zofran] 4 mg tablet 4 mg PO Q8H PRN (Reason: nausea and vomiting) Qty: 14 0RF cefuroxime axetil 500 mg tablet 500 mg PO BID 7 Days Qty: 14 0RF meclizine 25 mg tablet 25 mg PO TID PRN (Reason: dizziness) Qty: 10 0RF levofloxacin 500 mg tablet 500 mg PO DAILY 7 Days Qty: 7 0RF cefuroxime axetil 500 mg tablet 500 mg PO BID 10 Days Qty: 20 0RF alprazolam 0.25 mg tablet 0.25 mg PO QID Qty: 7 0RF levofloxacin 500 mg tablet 500 mg PO DAILY Qty: 6 0RF Rx Instructions: start on 08/26 ofloxacin 0.3 % drops 10 drp otic (ears) DAILY 7 Days Qty: 5 0RF Rx Instructions: can substitute eye drops if necessary hydrocortisone 2.5 % cream with perineal applicator 1 appl MI BEDTIME PRN (Reason: hemorrhoids) Qty: 30 0RF Hemorrhoidal(PE-min oil-emma) 0.25-14-74.9 % ointment 1 appl MI BID PRN (Reason: hemorrhoids) Qty: 56 0RF polyethylene glycol 3350 [Miralax] 17 gram/dose powder 17 g PO BID Qty: 119 0RF docusate sodium [Colace] 100 mg capsule 100 mg PO BID PRN (Reason: Constipation) Qty: 14 0RF ofloxacin 0.3 % drops 5 drp otic (ear) left BID 7 Days Qty: 5 0RF alprazolam 0.25 mg tablet 0.25 mg PO TID PRN (Reason: anxiety) Qty: 7 0RF alprazolam [Xanax] 0.5 mg tablet 0.5 mg PO BEDTIME PRN (Reason: anxiety) Qty: 7 0RF metoprolol succinate 50 mg tablet extended release 24 hr 50 mg PO DAILY Qty: 7 0RF alprazolam 0.25 mg tablet 0.25 mg PO TID PRN (Reason: anxiety) Qty: 3 0RF ondansetron 4 mg tablet,disintegrating 4 mg PO Q8H PRN (Reason: nausea and vomiting) Qty: 10 0RF Calmoseptine 0.44-20.6 % ointment 1 appl topical QID PRN (Reason: skin irritation) Qty: 113 0RF magnesium citrate Solution 150 ml PO DAILY PRN (Reason: constipation) Qty: 296 0RF Rx Instructions: take only when needed for constipation hydrocortisone acetate [Anucort-HC] 25 mg suppository 25 mg MI BID Qty: 12 3RF zolpidem [Ambien] 5 mg tablet 5 mg PO BEDTIME PRN (Reason: sleep) Qty: 2 0RF zolpidem [Ambien] 5 mg tablet 5 mg PO BEDTIME PRN (Reason: sleep) Qty: 2 0RF
== END 2023-08-03 04:45 | disposition home or self-care (01) ==
PROVIDERS: Emergency Provider Emergency Medicine; PCP Internal Medicine Geriatric Medicine
DX: F41.1 Generalized anxiety disorder (principal); F43.0 Acute stress reaction; Z79.899 Other long term (current) drug therapy
CPT/HCPCS: 99283

== ENCOUNTER 2023-08-03 11:30 | Emergency (ER) | payer OTHER, SELFPAY ==
[2023-08-03 11:39] VITALS: BP 149/101; BP 170/90; PULSE 87; PULSE 90; RESP 18; O2SAT 97; BMI 38.6
[2023-08-03 11:51] VITALS: PULSE 68
--- NOTE | 2023-08-03 11:51 | PC.NURSE ---
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 pt a&ox3. respirations even and unlabored. lung sounds clear bilaterally. pt brought in by ambulance reporting a rash under her right breast. pt reports applying vicks vaporrub under her breasts after noticing the redness and now reports burning. redness noted under the right breast and minimal redness noted under the left breast. this RN wiped off the vicks vapor rub and pt reported burning relief. pt denies nausea, vomiting, chest pain and shortness of breath. normal sinus on tele. at bedside discussing pt care.
--- NOTE | 2023-08-03 12:10 | ED_ITS ---
HPI - General Adult General Chief complaint: Skin/Abscess/Foreign Body Stated complaint: RASH UNDER R BREAST PER EMS Time Seen by Provider: 08/03/23 11:54 Source: patient Limitations: no limitations History of Present Illness HPI narrative: 77-year-old female presents for rash under her right breast. Patient reports having had EKG stickers on her right breast earlier today. She now has an itchy red rash therapy. She denies any diffuse rash, shortness breath, wheezing or difficulty swallowing. In addition, patient ran out of her anxiety medications. She is due for refill tomorrow. She is taking medication 5 times a day. She reports when she does not take it her blood pressure goes up. She reports that a visiting nurse administers the medication for her. Related Data Home Medications Medication Instructions Recorded Confirmed alprazolam 0.5 mg tablet 0.5 mg PO TID PRN Anxiety 08/09/20 02/06/23 aripiprazole 2 mg tablet 2 mg PO BEDTIME 08/09/20 02/06/23 cholecalciferol (vitamin D3) 25 25 mcg PO BID 08/09/20 02/06/23 mcg (1,000 unit) tablet hydroxyzine HCl 50 mg tablet 50 mg PO TID PRN Anxiety 08/09/20 02/06/23 linaclotide 145 mcg capsule 145 mcg PO DAILY 08/09/20 02/06/23 mirtazapine 45 mg tablet 45 mg PO BEDTIME 08/09/20 02/06/23 multivitamin 1 cap PO DAILY 08/09/20 02/06/23 omeprazole 20 mg tablet,delayed 20 mg PO DAILY 08/09/20 02/06/23 release sertraline 50 mg tablet 50 mg PO BEDTIME 08/09/20 02/06/23 Previous Rx's Medication Instructions Recorded escitalopram oxalate 10 mg tablet 10 mg PO DAILY #30 tabs 09/06/20 acetaminophen 325 mg capsule 325 mg PO QID PRN fever or pain 09/16/20 #30 caps aspirin 81 mg tablet,delayed 81 mg PO BEDTIME #90 tabs 09/28/20 release metoprolol succinate 50 mg 50 mg PO DAILY #90 tabs 09/28/20 tablet,extended release 24 hr menthol 0.44 %-zinc oxide 20.6 % 1 appl topical QID PRN skin 12/13/20 topical ointment (Calmoseptine) irritation #113 grams magnesium citrate 150 ml PO DAILY PRN constipation 12/14/20 #296 mL diphenhydramine HCl 25 mg capsule 25 mg PO BEDTIME insomnia #7 caps 12/25/20 (Benadryl) melatonin 10 mg tablet,extended 10 mg PO .nightly #5 tabs 01/07/21 release cefdinir 300 mg capsule 300 mg PO BID Otitis media 10 days 04/14/21 #20 caps ondansetron HCl 4 mg tablet 4 mg PO Q8H PRN nausea and 04/14/21 (Zofran) vomiting #14 tabs metoprolol succinate 50 mg 50 mg PO DAILY #14 tabs 05/22/21 tablet,extended release 24 hr ciprofloxacin 0.3 %-dexamethasone 4 drp otic (ears) BID 7 days 05/26/21 0.1 % ear drops,suspension (Ciprodex) polyethylene glycol 3350 17 17 g PO DAILY PRN constipation 07/31/21 gram/dose oral powder (Miralax) #238 grams hydrocortisone acetate 25 mg 25 mg [place] BID #12 ea 08/01/21 rectal suppository (Anucort-HC) cefuroxime axetil 500 mg tablet 500 mg PO BID 7 days #14 tabs 09/01/21 meclizine 25 mg tablet 25 mg PO TID PRN dizziness #10 tabs 09/01/21 zolpidem 5 mg tablet (Ambien) 5 mg PO BEDTIME PRN sleep #2 tabs 10/29/21 zolpidem 5 mg tablet (Ambien) 5 mg PO BEDTIME PRN sleep #2 tabs 10/29/21 levofloxacin 500 mg tablet 500 mg PO DAILY 7 days #7 tabs 07/23/22 levofloxacin 500 mg tablet 500 mg PO DAILY #6 tabs 08/25/22 ofloxacin 0.3 % ear drops 10 drp otic (ears) DAILY 7 days #5 08/25/22 mL hydrocortisone 2.5 % topical cream 1 appl [place] BEDTIME PRN hemorrhoids 09/20/22 with perineal applicator #30 grams docusate sodium 100 mg capsule 100 mg PO BID PRN Constipation #14 12/06/22 (Colace) caps phenylephrine 0.25 %-mineral oil 1 appl [place] BID PRN hemorrhoids #56 12/06/22 14 %-petrolatm 74.9 % rectal grams ointment (Hemorrhoidal(phenyleph-min oil-petrolat)) polyethylene glycol 3350 17 17 g PO BID #119 grams 12/06/22 gram/dose oral powder (Miralax) cefuroxime axetil 500 mg tablet 500 mg PO BID 10 days #20 tabs 12/16/22 alprazolam 0.25 mg tablet 0.25 mg PO QID #7 tabs 01/04/23 ofloxacin 0.3 % ear drops 5 drp otic (ear) left BID 7 days 01/06/23 #5 mL alprazolam 0.25 mg tablet 0.25 mg PO TID PRN anxiety #7 tabs 01/11/23 alprazolam 0.25 mg tablet 0.25 mg PO TID PRN anxiety #3 tabs 02/02/23 alprazolam 0.5 mg tablet (Xanax) 0.5 mg PO BEDTIME PRN anxiety #7 04/20/23 tabs metoprolol succinate 50 mg 50 mg PO DAILY #7 tabs 05/18/23 tablet,extended release 24 hr lisinopril 40 mg tablet 40 mg PO QPM #90 tabs 05/22/23 ondansetron 4 mg disintegrating 4 mg PO Q8H PRN nausea and 07/06/23 tablet vomiting #10 tabs hydrocortisone 1 % topical cream 1 appl topical BID PRN rash #28.4 08/03/23 grams Allergies Allergy/AdvReac Type Severity Reaction Status Date / Time penicillin G [Penicillin G] Allergy Severe ITCHY/RASH Verified 07/31/23 06:48 Sulfa (Sulfonamide Allergy Severe ITCHY,RASH, Verified 07/31/23 06:48 Antibiotics) rash [Sulfa (Sulfonamides)] trimethoprim [From Bactrim] Allergy Severe HIVES Verified 07/31/23 06:48 penicillin V Allergy Unknown rash Verified 07/31/23 06:48 sulfacetamide Allergy Unknown unknown Verified 07/31/23 06:48 [From Sulfacet-R] sulfur [From Sulfacet-R] Allergy Unknown unknown Verified 07/31/23 06:48 Review of Systems Review of Systems: CONSTITUTIONAL: Denies weight loss, fever and chills. HEENT: Denies changes in vision and hearing. RESPIRATORY: Denies SOB and cough. CV: Denies palpitations no CP. GI: Denies abdominal pain, nausea, vomiting and diarrhea. : Denies dysuria and urinary frequency. MSK: Denies myalgia and joint pain. SKIN: + rash - pruritus. NEUROLOGICAL: Denies headache and syncope. PSYCHIATRIC: Denies recent changes in mood. All other ROS are negative unless in HPI PMFSH Past Medical History Medical History Bleeding hemorrhoids Essential hypertension PVC (premature ventricular contraction) PAC (premature atrial contraction) SVT (supraventricular tachycardia) Chronic constipation High blood pressure Vertigo Dementia Arthritis Anxiety Surgical History No pertinent past surgical history Social History Social History Alcohol intake: never Patient Tobacco Use Status: Never used Tobacco Smoked in Last 30 Days: No Use of substances other than those prescribed or required for medical reasons: No Advance Directives: No Advance Directives Information Provided: No Physical Exam ED Vital Signs: Vital Signs - 24 hr 08/03/23 11:39 08/03/23 11:51 Pulse Rate 90 68 Respiratory Rate 18 Blood Pressure 149/101 H Pulse Oximetry 97 Oxygen Delivery Method Room Air BMI result Body Mass Index 38.6 GEN: Well developed, no acute distress, alert, oriented HEENT: Normocephalic, atraumatic, normal external ears, nose appears normal, no oropharyngeal edema or exudates Eyes: Normal to appearance Neck: Supple, no lymphadenopathy Respiratory: Talks in complete sentences, no respiratory distress, clear to auscultation bilaterally Cardiovascular: Regular rate and rhythm, no murmurs rubs or gallops Abdomen: Soft, nontender, nondistended, no guarding, no rebound Back: No CVA tenderness Extremities: No clubbing cyanosis or edema Neurologic: No focal neurologic deficits, cranial nerves 2-12 intact, strength is 5/5 bilaterally Skin: Mildly erythematous rash under right breast rash Medical Decision Making Medical Decision Making MDM Narrative: Patient presents with anxiety, elevated blood pressure rash. Regarding the rash, looks like a localized dermatitis syncope treated with topical steroids. Regarding the anxiety, patient has been taking her anxiety medications too frequently. She has been taking it 5 times a day instead of 4 times a day as previously prescribed. She ran out of her medications as result. At this point, I will provider with 1 tablet. I will not provide her with additional refills. I did instruct her that she may not receive further anxiety medications from the emergency department due to inappropriately taking her medications at home. She does report that a visiting nurse administers her medications. I also discussed with her potentially switching to some medication like clonazepam which is longer acting as opposed to alprazolam. She does not w clair to do this at this time. Differential Diagnosis Differential Diagnoses: The differential diagnosis associated with the presentation includes (Anxiety, over medication, noncompliance, hypertension, dermatitis) External Record Review Previous emergency department visits Prescription Management I considered prescription management with: Other (Anxiety medication) Chronic Conditions Patient?s care impacted by: Hypertension and Other (Anxiety) Discharge Plan Discharge Clinical Impression: Anxiety, Hypertension, Dermatitis Patient Disposition: Home, Self-Care Instructions: Hypertension (ED), Anxiety (ED), Dermatitis (ED) Additional Instructions: Your going 3 your anxiety medication, alprazolam, way too frequently. You should only be taking this 4 times a day. Going forward, it is quite possibly may not receive your anxiety medication from the emergency department. This will be at the discretion of the provider taking care of you. In addition, I do not believe alprazolam is a good medication for you. It is very short acting and you would best discussed with her primary care provider as switching the medication that has a longer-acting mechanism. Prescriptions: New hydrocortisone 1 % cream 1 appl topical BID PRN (Reason: rash) Qty: 28.4 0RF No Action escitalopram oxalate 10 mg tablet 10 mg PO DAILY Qty: 30 1RF metoprolol succinate 50 mg tablet extended release 24 hr 50 mg PO DAILY Qty: 90 2RF aspirin 81 mg tablet,delayed release (DR/EC) 81 mg PO BEDTIME Qty: 90 2RF polyethylene glycol 3350 [Miralax] 17 gram/dose powder 17 g PO DAILY PRN (Reason: constipation) Qty: 238 0RF lisinopril 40 mg tablet 40 mg PO QPM Qty: 90 0RF Rx Instructions: Please call and schedule cardiology appt acetaminophen 325 mg capsule 325 mg PO QID PRN (Reason: fever or pain) Qty: 30 0RF melatonin 10 mg tablet extended release 10 mg PO .nightly Qty: 5 0RF metoprolol succinate 50 mg tablet extended release 24 hr 50 mg PO DAILY Qty: 14 0RF ciprofloxacin-dexamethasone [Ciprodex] 0.3-0.1 % drops,suspension 4 drp otic (ears) BID 7 Days 0RF alprazolam 0.5 mg Tablet 0.5 mg PO TID PRN (Reason: Anxiety) hydroxyzine HCl 50 mg Tablet 50 mg PO TID PRN (Reason: Anxiety) mirtazapine 45 mg Tablet 45 mg PO BEDTIME multivitamin Capsule 1 cap PO DAILY sertraline 50 mg Tablet 50 mg PO BEDTIME aripiprazole 2 mg Tablet 2 mg PO BEDTIME cholecalciferol (vitamin D3) 25 mcg (1,000 unit) Tablet 25 mcg PO BID omeprazole 20 mg Tablet,Delayed Release (Dr/Ec) 20 mg PO DAILY linaclotide 145 mcg Capsule 145 mcg PO DAILY diphenhydramine HCl [Benadryl] 25 mg capsule 25 mg PO BEDTIME Qty: 7 0RF cefdinir 300 mg capsule 300 mg PO BID 10 Days Qty: 20 0RF ondansetron HCl [Zofran] 4 mg tablet 4 mg PO Q8H PRN (Reason: nausea and vomiting) Qty: 14 0RF cefuroxime axetil 500 mg tablet 500 mg PO BID 7 Days Qty: 14 0RF meclizine 25 mg tablet 25 mg PO TID PRN (Reason: dizziness) Qty: 10 0RF levofloxacin 500 mg tablet 500 mg PO DAILY 7 Days Qty: 7 0RF cefuroxime axetil 500 mg tablet 500 mg PO BID 10 Days Qty: 20 0RF alprazolam 0.25 mg tablet 0.25 mg PO QID Qty: 7 0RF levofloxacin 500 mg tablet 500 mg PO DAILY Qty: 6 0RF Rx Instructions: start on 08/26 ofloxacin 0.3 % drops 10 drp otic (ears) DAILY 7 Days Qty: 5 0RF Rx Instructions: can substitute eye drops if necessary hydrocortisone 2.5 % cream with perineal applicator 1 appl [place] BEDTIME PRN (Reason: hemorrhoids) Qty: 30 0RF Hemorrhoidal(PE-min oil-emma) 0.25-14-74.9 % ointment 1 appl [place] BID PRN (Reason: hemorrhoids) Qty: 56 0RF polyethylene glycol 3350 [Miralax] 17 gram/dose powder 17 g PO BID Qty: 119 0RF docusate sodium [Colace] 100 mg capsule 100 mg PO BID PRN (Reason: Constipation) Qty: 14 0RF ofloxacin 0.3 % drops 5 drp otic (ear) left BID 7 Days Qty: 5 0RF alprazolam 0.25 mg tablet 0.25 mg PO TID PRN (Reason: anxiety) Qty: 7 0RF alprazolam [Xanax] 0.5 mg tablet 0.5 mg PO BEDTIME PRN (Reason: anxiety) Qty: 7 0RF metoprolol succinate 50 mg tablet extended release 24 hr 50 mg PO DAILY Qty: 7 0RF alprazolam 0.25 mg tablet 0.25 mg PO TID PRN (Reason: anxiety) Qty: 3 0RF ondansetron 4 mg tablet,disintegrating 4 mg PO Q8H PRN (Reason: nausea and vomiting) Qty: 10 0RF Calmoseptine 0.44-20.6 % ointment 1 appl topical QID PRN (Reason: skin irritation) Qty: 113 0RF magnesium citrate Solution 150 ml PO DAILY PRN (Reason: constipation) Qty: 296 0RF Rx Instructions: take only when needed for constipation hydrocortisone acetate [Anucort-HC] 25 mg suppository 25 mg [place] BID Qty: 12 3RF zolpidem [Ambien] 5 mg tablet 5 mg PO BEDTIME PRN (Reason: sleep) Qty: 2 0RF zolpidem [Ambien] 5 mg tablet 5 mg PO BEDTIME PRN (Reason: sleep) Qty: 2 0RF Referrals: [facility] [Primary Care Provider] -
--- NOTE | 2023-08-03 12:14 | PC.NURSE ---
this RN called pharmacy to get medication sent up for pt.
[2023-08-03] MEDS: ALPRAZolam 0.5 MG TABLET 0.25 MG PO (12:34)
== END 2023-08-03 12:39 | disposition home or self-care (01) ==
PROVIDERS: Emergency Provider Emergency Medicine
DX: R21 Rash and other nonspecific skin eruption (principal); F41.1 Generalized anxiety disorder; F43.0 Acute stress reaction; L30.9 Dermatitis, unspecified; I10 Essential (primary) hypertension; R06.02 Shortness of breath; Z79.899 Other long term (current) drug therapy
CPT/HCPCS: 99283; 99284

== ENCOUNTER 2023-08-04 00:38 | Emergency (ER) | payer OTHER, SELFPAY ==
--- NOTE | 2023-08-04 00:41 | ED_ITS ---
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 She has been seen x 6 visits this month for anxiety requesting medications for anxiety. She comes in today with c/o anxiety. She was just seen yesterday for anxiety and given oral dose of her xanax and seen for rash from ECG leads. She states her last dose of home xanax was yesterday AM and she ran out. 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 It made her feel nauseated. She has no CP. MD complaint: anxiety Onset (ago): year(s) Duration: intermittent History of same: Yes Relieving factors: medication Exacerbating factors: none Context: other (chronically over uses her xanax and runs out early) Associated psychiatric symptoms: none Associated symptoms: nausea and insomnia Treatments prior to arrival: none Related Data Home Medications Medication Instructions Recorded Confirmed alprazolam 0.5 mg tablet 0.5 mg PO TID PRN Anxiety 08/09/20 02/06/23 aripiprazole 2 mg tablet 2 mg PO BEDTIME 08/09/20 02/06/23 cholecalciferol (vitamin D3) 25 25 mcg PO BID 08/09/20 02/06/23 mcg (1,000 unit) tablet hydroxyzine HCl 50 mg tablet 50 mg PO TID PRN Anxiety 08/09/20 02/06/23 linaclotide 145 mcg capsule 145 mcg PO DAILY 08/09/20 02/06/23 mirtazapine 45 mg tablet 45 mg PO BEDTIME 08/09/20 02/06/23 multivitamin 1 cap PO DAILY 08/09/20 02/06/23 omeprazole 20 mg tablet,delayed 20 mg PO DAILY 08/09/20 02/06/23 release sertraline 50 mg tablet 50 mg PO BEDTIME 08/09/20 02/06/23 Previous Rx's Medication Instructions Recorded escitalopram oxalate 10 mg tablet 10 mg PO DAILY #30 tabs 09/06/20 acetaminophen 325 mg capsule 325 mg PO QID PRN fever or pain 09/16/20 #30 caps aspirin 81 mg tablet,delayed 81 mg PO BEDTIME #90 tabs 09/28/20 release metoprolol succinate 50 mg 50 mg PO DAILY #90 tabs 09/28/20 tablet,extended release 24 hr menthol 0.44 %-zinc oxide 20.6 % 1 appl topical QID PRN skin 12/13/20 topical ointment (Calmoseptine) irritation #113 grams magnesium citrate 150 ml PO DAILY PRN constipation 12/14/20 #296 mL diphenhydramine HCl 25 mg capsule 25 mg PO BEDTIME insomnia #7 caps 12/25/20 (Benadryl) melatonin 10 mg tablet,extended 10 mg PO .nightly #5 tabs 01/07/21 release cefdinir 300 mg capsule 300 mg PO BID Otitis media 10 days 04/14/21 #20 caps ondansetron HCl 4 mg tablet 4 mg PO Q8H PRN nausea and 04/14/21 (Zofran) vomiting #14 tabs metoprolol succinate 50 mg 50 mg PO DAILY #14 tabs 05/22/21 tablet,extended release 24 hr ciprofloxacin 0.3 %-dexamethasone 4 drp otic (ears) BID 7 days 05/26/21 0.1 % ear drops,suspension (Ciprodex) polyethylene glycol 3350 17 17 g PO DAILY PRN constipation 07/31/21 gram/dose oral powder (Miralax) #238 grams hydrocortisone acetate 25 mg 25 mg SD BID #12 ea 08/01/21 rectal suppository (Anucort-HC) cefuroxime axetil 500 mg tablet 500 mg PO BID 7 days #14 tabs 09/01/21 meclizine 25 mg tablet 25 mg PO TID PRN dizziness #10 tabs 09/01/21 zolpidem 5 mg tablet (Ambien) 5 mg PO BEDTIME PRN sleep #2 tabs 10/29/21 zolpidem 5 mg tablet (Ambien) 5 mg PO BEDTIME PRN sleep #2 tabs 10/29/21 levofloxacin 500 mg tablet 500 mg PO DAILY 7 days #7 tabs 07/23/22 levofloxacin 500 mg tablet 500 mg PO DAILY #6 tabs 08/25/22 ofloxacin 0.3 % ear drops 10 drp otic (ears) DAILY 7 days #5 08/25/22 mL hydrocortisone 2.5 % topical cream 1 appl SD BEDTIME PRN hemorrhoids 09/20/22 with perineal applicator #30 grams docusate sodium 100 mg capsule 100 mg PO BID PRN Constipation #14 12/06/22 (Colace) caps phenylephrine 0.25 %-mineral oil 1 appl SD BID PRN hemorrhoids #56 12/06/22 14 %-petrolatm 74.9 % rectal grams ointment (Hemorrhoidal(phenyleph-min oil-petrolat)) polyethylene glycol 3350 17 17 g PO BID #119 grams 12/06/22 gram/dose oral powder (Miralax) cefuroxime axetil 500 mg tablet 500 mg PO BID 10 days #20 tabs 12/16/22 alprazolam 0.25 mg tablet 0.25 mg PO QID #7 tabs 01/04/23 ofloxacin 0.3 % ear drops 5 drp otic (ear) left BID 7 days 01/06/23 #5 mL alprazolam 0.25 mg tablet 0.25 mg PO TID PRN anxiety #7 tabs 01/11/23 alprazolam 0.25 mg tablet 0.25 mg PO TID PRN anxiety #3 tabs 02/02/23 alprazolam 0.5 mg tablet (Xanax) 0.5 mg PO BEDTIME PRN anxiety #7 04/20/23 tabs metoprolol succinate 50 mg 50 mg PO DAILY #7 tabs 05/18/23 tablet,extended release 24 hr lisinopril 40 mg tablet 40 mg PO QPM #90 tabs 05/22/23 ondansetron 4 mg disintegrating 4 mg PO Q8H PRN nausea and 07/06/23 tablet vomiting #10 tabs hydrocortisone 1 % topical cream 1 appl topical BID PRN rash #28.4 08/03/23 grams Allergies Allergy/AdvReac Type Severity Reaction Status Date / Time penicillin G [Penicillin G] Allergy Severe ITCHY/RASH Verified 07/31/23 06:48 Sulfa (Sulfonamide Allergy Severe ITCHY,RASH, Verified 07/31/23 06:48 Antibiotics) rash [Sulfa (Sulfonamides)] trimethoprim [From Bactrim] Allergy Severe HIVES Verified 07/31/23 06:48 penicillin V Allergy Unknown rash Verified 07/31/23 06:48 sulfacetamide Allergy Unknown unknown Verified 07/31/23 06:48 [From Sulfacet-R] sulfur [From Sulfacet-R] Allergy Unknown unknown Verified 07/31/23 06:48 Review of Systems Review of Systems: Constitutional : No Fever, No Chills, No Fatigue Cardiovascular : No Chest Pain, No SOB, No Dyspnea on Exertion Respiratory : No Cough, No Sputum Gastrointestinal : No Nausea, No Vomiting, No Diarrhea, No abdominal Pain Musculoskeletal : No joint pain, No Myalgias, No Joint Swelling Skin : No Skin Lesions, No rash Neuro : No Weakness, No Numbness, No Dizziness, no Headache Psych : pos Anxiety/Panic, No Depression All other systems reviewed and are negative PMFSH Past Medical History Attestation statement: The following information was validated with the patient. Source: old records reviewed Medical History Bleeding hemorrhoids Essential hypertension PVC (premature ventricular contraction) PAC (premature atrial contraction) SVT (supraventricular tachycardia) Chronic constipation High blood pressure Vertigo Dementia Arthritis Anxiety Surgical History No pertinent past surgical history Social History Social History Alcohol intake: never Patient Tobacco Use Status: Never used Tobacco Smoked in Last 30 Days: No Use of substances other than those prescribed or required for medical reasons: No Advance Directives: No Advance Directives Information Provided: No Physical Exam Vital Signs: Vital Signs: Last Vital Signs Temp 98.1 F 08/04/23 01:18 Pulse 80 08/04/23 01:18 Resp 16 08/04/23 01:18 BP 144/73 H 08/04/23 01:18 Pulse Ox 97 08/04/23 01:18 O2 Del Method Room Air 08/04/23 01:18 BMI result Body Mass Index 29.0 Appearance: Alert. Oriented X3. No acute distress. Eyes: Pupils equal, round and reactive to light. ENT: Pharynx normal. Neck: Normal inspection. Neck supple. CVS: Normal heart rate and rhythm. Pulses normal. Chest: healing red area under R breast - likely old tony Respiratory: No respiratory distress. Breath sounds normal. Abdomen: Soft and nontender. Skin: Skin warm and dry. Normal skin color. Normal skin turgor. Extremities: No lower extremity edema. No calf ttp Neuro: Oriented X 3. No motor deficit. No sensory deficit. Medications Administered Discontinued Medications Generic Name Dose Route Start Last Admin Trade Name Freq PRN Reason Stop Dose Admin Alprazolam 0.25 mg 08/04/23 00:58 08/04/23 01:14 Alprazolam 0.25 Mg Tablet PO 08/04/23 00:59 0.25 mg ONCE ONE Administration Ondansetron HCl 4 mg 08/04/23 00:58 08/04/23 01:14 Ondansetron Odt 4 Mg Tab.Rapdis TRANSLINGU 08/04/23 00:59 4 mg ONCE ONE Administration Medical Decision Making Medical Decision Making MDM Narrative: 77 yo female with PMH of HTN, anxiety, chronic ear infections - 08/01 zpak and ofloxacin drops - hx of PRN xanax last Rx was 07/28 written 0.25mg 4 times daily PRN for 7 days given #28 which should have lasted her until today/tomorrow here asking for bridge dose of xanax until she can fill in AM due to elevated BP and anxiety at home. She has no CP, not toxic, hx of same in past. BP trending down here without intervention will dose in ED and DC home. This is a chronic presentation to our ED for Noreen no change from baseline Differential Diagnosis Differential Diagnoses: The differential diagnosis associated with the presentation includes anxiety, insomnia, medication overuse Independent Historian Clinical information obtained from an independent historian. History obtained from or confirmed by: EMS External Record Review External record reviewed: Inpatient record Tests considered The following testing was considered but not selected: labs but no change from baseline and denies any new symptoms not indicated Social Determinants Patient?s care significantly limited by Social Determinants of Health including: Problems related to primary support group Discharge Plan Discharge Clinical Impression: Acute anxiety Patient Disposition: Home, Self-Care Instructions: Anxiety (ED) Additional Instructions: fill your medications in the morning. return for chest pain, difficulty breathing, numbness, weakness, confusion or any other concerns. Llene kelsi medicamentos por la ma?delmy. Regrese si tiene dolor en el pecho, dificultad para respirar, entumecimiento, debilidad, confusi?n o cualquier otra inquietud. Prescriptions: No Action escitalopram oxalate 10 mg tablet 10 mg PO DAILY Qty: 30 1RF metoprolol succinate 50 mg tablet extended release 24 hr 50 mg PO DAILY Qty: 90 2RF aspirin 81 mg tablet,delayed release (DR/EC) 81 mg PO BEDTIME Qty: 90 2RF polyethylene glycol 3350 [Miralax] 17 gram/dose powder 17 g PO DAILY PRN (Reason: constipation) Qty: 238 0RF lisinopril 40 mg tablet 40 mg PO QPM Qty: 90 0RF Rx Instructions: Please call and schedule cardiology appt acetaminophen 325 mg capsule 325 mg PO QID PRN (Reason: fever or pain) Qty: 30 0RF melatonin 10 mg tablet extended release 10 mg PO .nightly Qty: 5 0RF metoprolol succinate 50 mg tablet extended release 24 hr 50 mg PO DAILY Qty: 14 0RF ciprofloxacin-dexamethasone [Ciprodex] 0.3-0.1 % drops,suspension 4 drp otic (ears) BID 7 Days 0RF alprazolam 0.5 mg Tablet 0.5 mg PO TID PRN (Reason: Anxiety) hydroxyzine HCl 50 mg Tablet 50 mg PO TID PRN (Reason: Anxiety) mirtazapine 45 mg Tablet 45 mg PO BEDTIME multivitamin Capsule 1 cap PO DAILY sertraline 50 mg Tablet 50 mg PO BEDTIME aripiprazole 2 mg Tablet 2 mg PO BEDTIME cholecalciferol (vitamin D3) 25 mcg (1,000 unit) Tablet 25 mcg PO BID omeprazole 20 mg Tablet,Delayed Release (Dr/Ec) 20 mg PO DAILY linaclotide 145 mcg Capsule 145 mcg PO DAILY diphenhydramine HCl [Benadryl] 25 mg capsule 25 mg PO BEDTIME Qty: 7 0RF cefdinir 300 mg capsule 300 mg PO BID 10 Days Qty: 20 0RF ondansetron HCl [Zofran] 4 mg tablet 4 mg PO Q8H PRN (Reason: nausea and vomiting) Qty: 14 0RF cefuroxime axetil 500 mg tablet 500 mg PO BID 7 Days Qty: 14 0RF meclizine 25 mg tablet 25 mg PO TID PRN (Reason: dizziness) Qty: 10 0RF levofloxacin 500 mg tablet 500 mg PO DAILY 7 Days Qty: 7 0RF cefuroxime axetil 500 mg tablet 500 mg PO BID 10 Days Qty: 20 0RF alprazolam 0.25 mg tablet 0.25 mg PO QID Qty: 7 0RF levofloxacin 500 mg tablet 500 mg PO DAILY Qty: 6 0RF Rx Instructions: start on 08/26 ofloxacin 0.3 % drops 10 drp otic (ears) DAILY 7 Days Qty: 5 0RF Rx Instructions: can substitute eye drops if necessary hydrocortisone 2.5 % cream with perineal applicator 1 appl SD BEDTIME PRN (Reason: hemorrhoids) Qty: 30 0RF Hemorrhoidal(PE-min oil-emma) 0.25-14-74.9 % ointment 1 appl SD BID PRN (Reason: hemorrhoids) Qty: 56 0RF polyethylene glycol 3350 [Miralax] 17 gram/dose powder 17 g PO BID Qty: 119 0RF docusate sodium [Colace] 100 mg capsule 100 mg PO BID PRN (Reason: Constipation) Qty: 14 0RF ofloxacin 0.3 % drops 5 drp otic (ear) left BID 7 Days Qty: 5 0RF alprazolam 0.25 mg tablet 0.25 mg PO TID PRN (Reason: anxiety) Qty: 7 0RF alprazolam [Xanax] 0.5 mg tablet 0.5 mg PO BEDTIME PRN (Reason: anxiety) Qty: 7 0RF metoprolol succinate 50 mg tablet extended release 24 hr 50 mg PO DAILY Qty: 7 0RF alprazolam 0.25 mg tablet 0.25 mg PO TID PRN (Reason: anxiety) Qty: 3 0RF ondansetron 4 mg tablet,disintegrating 4 mg PO Q8H PRN (Reason: nausea and vomiting) Qty: 10 0RF hydrocortisone 1 % cream 1 appl topical BID PRN (Reason: rash) Qty: 28.4 0RF Calmoseptine 0.44-20.6 % ointment 1 appl topical QID PRN (Reason: skin irritation) Qty: 113 0RF magnesium citrate Solution 150 ml PO DAILY PRN (Reason: constipation) Qty: 296 0RF Rx Instructions: take only when needed for constipation hydrocortisone acetate [Anucort-HC] 25 mg suppository 25 mg SD BID Qty: 12 3RF zolpidem [Ambien] 5 mg tablet 5 mg PO BEDTIME PRN (Reason: sleep) Qty: 2 0RF zolpidem [Ambien] 5 mg tablet 5 mg PO BEDTIME PRN (Reason: sleep) Qty: 2 0RF Interventions: ED Discharge Assessment Last Done: 08/04/23 01:25 Discharge Date/Time: 08/04/23 01:25 Print Language: Beninese
[2023-08-04 00:51] VITALS: BP 162/82; BP 170/100; PULSE 80; RESP 14; TEMP 36.6; O2SAT 96; BMI 29.0
[2023-08-04 00:55] VITALS: BP 162/82; PULSE 80; RESP 14; O2SAT 96
[2023-08-04] MEDS: ALPRAZolam 0.25 MG TABLET PO (01:14)
[2023-08-04] MEDS: Ondansetron ODT 4 MG TAB.RAPDIS TRANSLINGU (01:14)
[2023-08-04 01:18] VITALS: BP 144/73; PULSE 80; RESP 16; TEMP 36.7; O2SAT 97
== END 2023-08-04 01:25 | disposition home or self-care (01) ==
PROVIDERS: Emergency Provider Emergency Medicine; PCP Internal Medicine Geriatric Medicine
DX: F41.9 Anxiety disorder, unspecified (principal); I10 Essential (primary) hypertension; Z79.899 Other long term (current) drug therapy
CPT/HCPCS: 99283; 99284

== ENCOUNTER 2023-08-06 08:40 | Emergency (ER) | payer OTHER, SELFPAY ==
[2023-08-06 08:44] VITALS: BP 159/84; PULSE 82; RESP 16; TEMP 36.3; O2SAT 98; BMI 26.9
--- NOTE | 2023-08-06 09:12 | ED.GENADULT ---
HPI - General Adult General Chief complaint: Anxiety Stated complaint: High Blood Pressure Time Seen by Provider: 08/06/23 09:06 Source: patient and cloud subject matter expert Mode of arrival: ambulatory Limitations: language barrier History of Present Illness HPI narrative: Patient is a 77 year old assigned female at with a history of anxiety presenting to the emergency department today after a panic attack. Patient states that this morning while she was out, she had a panic attack. Patient states that she has an upcoming appointment with her psychiatrist. Patient denies any dizziness, lightheadedness, abdominal pain, nausea, vomiting, fever, chills, blurry vision, double vision, loss of vision, chest pain, difficulty breathing, shortness of breath, back pain, night sweats, pain with urination, increased urinary frequency, increased urinary urgency, blood in her urine or stool, syncope or a near syncopal episode, recent trauma or falls, bowel incontinence, bladder incontinence, bowel retention, bladder retention, or any other complaints at this time. Severity: mild Pain Consistency: now resolved Relieving factors: none Exacerbating factors: none Associated symptoms: denies other symptoms Treatments prior to arrival: none Related Data Home Medications Medication Instructions Recorded Confirmed alprazolam 0.5 mg tablet 0.5 mg PO TID PRN Anxiety 08/09/20 02/06/23 aripiprazole 2 mg tablet 2 mg PO BEDTIME 08/09/20 02/06/23 cholecalciferol (vitamin D3) 25 25 mcg PO BID 08/09/20 02/06/23 mcg (1,000 unit) tablet hydroxyzine HCl 50 mg tablet 50 mg PO TID PRN Anxiety 08/09/20 02/06/23 linaclotide 145 mcg capsule 145 mcg PO DAILY 08/09/20 02/06/23 mirtazapine 45 mg tablet 45 mg PO BEDTIME 08/09/20 02/06/23 multivitamin 1 cap PO DAILY 08/09/20 02/06/23 omeprazole 20 mg tablet,delayed 20 mg PO DAILY 08/09/20 02/06/23 release sertraline 50 mg tablet 50 mg PO BEDTIME 08/09/20 02/06/23 Previous Rx's Medication Instructions Recorded escitalopram oxalate 10 mg tablet 10 mg PO DAILY #30 tabs 09/06/20 acetaminophen 325 mg capsule 325 mg PO QID PRN fever or pain 09/16/20 #30 caps aspirin 81 mg tablet,delayed 81 mg PO BEDTIME #90 tabs 09/28/20 release metoprolol succinate 50 mg 50 mg PO DAILY #90 tabs 09/28/20 tablet,extended release 24 hr menthol 0.44 %-zinc oxide 20.6 % 1 appl topical QID PRN skin 12/13/20 topical ointment (Calmoseptine) irritation #113 grams magnesium citrate 150 ml PO DAILY PRN constipation 12/14/20 #296 mL diphenhydramine HCl 25 mg capsule 25 mg PO BEDTIME insomnia #7 caps 12/25/20 (Benadryl) melatonin 10 mg tablet,extended 10 mg PO .nightly #5 tabs 01/07/21 release cefdinir 300 mg capsule 300 mg PO BID Otitis media 10 days 04/14/21 #20 caps ondansetron HCl 4 mg tablet 4 mg PO Q8H PRN nausea and 04/14/21 (Zofran) vomiting #14 tabs metoprolol succinate 50 mg 50 mg PO DAILY #14 tabs 05/22/21 tablet,extended release 24 hr ciprofloxacin 0.3 %-dexamethasone 4 drp otic (ears) BID 7 days 05/26/21 0.1 % ear drops,suspension (Ciprodex) polyethylene glycol 3350 17 17 g PO DAILY PRN constipation 07/31/21 gram/dose oral powder (Miralax) #238 grams hydrocortisone acetate 25 mg 25 mg NE BID #12 ea 08/01/21 rectal suppository (Anucort-HC) cefuroxime axetil 500 mg tablet 500 mg PO BID 7 days #14 tabs 09/01/21 meclizine 25 mg tablet 25 mg PO TID PRN dizziness #10 tabs 09/01/21 zolpidem 5 mg tablet (Ambien) 5 mg PO BEDTIME PRN sleep #2 tabs 10/29/21 zolpidem 5 mg tablet (Ambien) 5 mg PO BEDTIME PRN sleep #2 tabs 10/29/21 levofloxacin 500 mg tablet 500 mg PO DAILY 7 days #7 tabs 07/23/22 levofloxacin 500 mg tablet 500 mg PO DAILY #6 tabs 08/25/22 ofloxacin 0.3 % ear drops 10 drp otic (ears) DAILY 7 days #5 08/25/22 mL hydrocortisone 2.5 % topical cream 1 appl NE BEDTIME PRN hemorrhoids 09/20/22 with perineal applicator #30 grams docusate sodium 100 mg capsule 100 mg PO BID PRN Constipation #14 12/06/22 (Colace) caps phenylephrine 0.25 %-mineral oil 1 appl NE BID PRN hemorrhoids #56 12/06/22 14 %-petrolatm 74.9 % rectal grams ointment (Hemorrhoidal(phenyleph-min oil-petrolat)) polyethylene glycol 3350 17 17 g PO BID #119 grams 12/06/22 gram/dose oral powder (Miralax) cefuroxime axetil 500 mg tablet 500 mg PO BID 10 days #20 tabs 12/16/22 alprazolam 0.25 mg tablet 0.25 mg PO QID #7 tabs 01/04/23 ofloxacin 0.3 % ear drops 5 drp otic (ear) left BID 7 days 01/06/23 #5 mL alprazolam 0.25 mg tablet 0.25 mg PO TID PRN anxiety #7 tabs 01/11/23 alprazolam 0.25 mg tablet 0.25 mg PO TID PRN anxiety #3 tabs 02/02/23 alprazolam 0.5 mg tablet (Xanax) 0.5 mg PO BEDTIME PRN anxiety #7 04/20/23 tabs metoprolol succinate 50 mg 50 mg PO DAILY #7 tabs 05/18/23 tablet,extended release 24 hr lisinopril 40 mg tablet 40 mg PO QPM #90 tabs 05/22/23 ondansetron 4 mg disintegrating 4 mg PO Q8H PRN nausea and 07/06/23 tablet vomiting #10 tabs hydrocortisone 1 % topical cream 1 appl topical BID PRN rash #28.4 08/03/23 grams Allergies Allergy/AdvReac Type Severity Reaction Status Date / Time penicillin G [Penicillin G] Allergy Severe ITCHY/RASH Verified 08/06/23 08:43 Sulfa (Sulfonamide Allergy Severe ITCHY,RASH, Verified 08/06/23 08:43 Antibiotics) rash [Sulfa (Sulfonamides)] trimethoprim [From Bactrim] Allergy Severe HIVES Verified 08/06/23 08:43 penicillin V Allergy Unknown rash Verified 08/06/23 08:43 sulfacetamide Allergy Unknown unknown Verified 08/06/23 08:43 [From Sulfacet-R] sulfur [From Sulfacet-R] Allergy Unknown unknown Verified 08/06/23 08:43 Review of Systems Constitutional: Constitutional: Reports no additional constitutional complaints, Denies chills, Denies fever(s) and Denies night sweats Eyes: Eyes: Reports no additional eye complaints, Denies blurry vision, Denies change in vision, Denies diplopia, Denies eye discharge, Denies loss of vision and Denies eye pain ENT: Denies dizziness Cardiovascular: Cardiovascular: Reports no additional cardiovascular complaints, Denies chest pain, Denies lightheadedness, Denies Loss of Consciousness and Denies dyspnea Respiratory: Respiratory: Reports no additional respiratory complaints and Denies dyspnea Gastrointestinal: Gastrointestinal: Reports no additional gastrointestinal complaints, Denies abdominal pain, Denies melena, Denies hematochezia, Denies change in bowel habits and Denies change in stool character Genitourinary: Genitourinary: Denies hematuria, Denies urinary frequency, Denies dysuria, Denies urinary incontinence, Denies urinary hesitancy and Denies urinary urgency Musculoskeletal: Musculoskeletal: Reports no additional musculoskeletal complaints, Denies numbness and Denies tingling Neurologic: Denies dizziness, Denies loss of vision, Denies numbness and Denies tingling Psychiatric: Psychiatric: Reports no additional psychiatric complaints Endocrine: Endocrine: Reports no additional endocrine complaints Hematologic/Lymphatic: Hematologic/Lymphatic: Reports no additional hematologic/lymphatic complaints Allergic/Immunologic: Allergic/Immunologic: Reports no additional allergic/immunologic complaints [facility] Past Medical History Attestation statement: The following information was validated with the patient. Source: old records reviewed and nursing notes reviewed Medical History Bleeding hemorrhoids Essential hypertension PVC (premature ventricular contraction) PAC (premature atrial contraction) SVT (supraventricular tachycardia) Chronic constipation High blood pressure Vertigo Dementia Arthritis Anxiety Surgical History No pertinent past surgical history Social History Social History Alcohol intake: never Patient Tobacco Use Status: Never used Tobacco Advance Directives: No Advance Directives Information Provided: Yes Physical Exam ED Vital Signs: Vital Signs - 24 hr 08/06/23 08:44 Temperature 97.3 F Pulse Rate 82 Respiratory Rate 16 Blood Pressure 159/84 H Pulse Oximetry 98 Oxygen Delivery Method Room Air BMI result Body Mass Index 26.9 Const General: cooperative, no acute distress, alert and awake Nutritional Appearance: well nourished Orientation/consciousness: patient oriented x3 Limitations: no limitations HENMT Head: Yes normal to inspection and Yes atraumatic Ears: hearing grossly normal bilaterally and external ears normal General nose exam: Normal external nose present, no nasal discharge noted and no epistaxis Face and sinus: Yes normal facial exam, No abrasion and No laceration Mouth: Normal oral and palatal mucosa present, no drooling and no muffled voice Eyes General: appearance normal, both eyes and all related structures Periorbital: periorbital findings normal Eyelids: Yes eyelids normal Conjunctivae: conjunctivae normal Pupils: Equal, round and reactive pupils present EOM: EOMs intact bilaterally Neck Neck: Yes normal visual inspection, Yes full ROM and Yes no lymphadenopathy Chest Chest palpation & inspection: normal inspection of the chest Resp Effort & Inspection: normal respiratory effort and able to speak in complete sentences Auscultation: clear to auscultation bilaterally Cardio Rate: regular rate Rhythm: regular rhythm GI Inspection: Yes normal to inspection Neuro General: patient oriented x3 and moves all extremities Cranial nerves: Yes Equal, round and reactive pupils present Cognition (Neuro): normal cognition Motor exam (neuro): 5/5 motor strength present throughout Sensory Exam: Normal double simultaneous stimulation for sensation Coordination: dolita-yz-[id number] test normal Extrem General: Yes normal to inspection, Yes full ROM and Yes capillary refill normal Psych Appearance: grossly normal Mental Status: mental status grossly normal Affect: normal affect Attitude: cooperative Thought process: Normal thought process present Thought content: Normal thought content present Insight: Good insight present (Psych) Medications Administered Discontinued Medications Generic Name Dose Route Start Last Admin Trade Name Freq PRN Reason Stop Dose Admin Clonazepam 0.5 mg 08/06/23 09:23 08/06/23 09:35 Clonazepam 0.5 Mg Tablet PO 08/06/23 09:24 0.5 mg ONCE ONE Administration Medical Decision Making Medical Decision Making MDM Narrative: Patient is a 77 year old assigned female at with a history of anxiety presenting to the emergency department today after a panic attack. Patient's physical exam was unremarkable. I explained my physical exam findings to the patient. I answered all questions asked by the patient. Patient received PO Clonazepam which she stated helped her symptoms significantly. I stressed the importance of the patient taking her medication as prescribed. I stressed the importance of the patient following up with her primary care provider and her psychiatrist. I stressed the importance of the patient returning to the emergency department immediately if her symptoms were to worsen or if she were to develop any dizziness, shortness of breath, difficulty breathing, chest pain, blurry vision, loss of vision, nausea, vomiting, abdominal pain, fever, chills, back pain, or any other complaints. Patient verbalized agreement and understanding with this treatment plan and discharge. Differential Diagnosis Differential Diagnoses: The differential diagnosis associated with the presentation includes Anxiety Panic attack Discharge Plan Discharge Clinical Impression: Generalized anxiety disorder with panic attacks Patient Disposition: Home, Self-Care Instructions: Panic Attack (ED) Additional Instructions: Follow up with your primary care provider and your psychiatrist. Return to the emergency department immediately if your symptoms worsen or if you develop any dizziness, shortness of breath, difficulty breathing, chest pain, blurry vision, loss of vision, nausea, vomiting, abdominal pain, fever, chills, back pain, or any other complaints. Steve un seguimiento con clark proveedor de atenci?n primaria y clark psiquiatra. Regrese al departamento de emergencias inmediatamente si kelsi s?ntomas empeoran o si presenta mareos, dificultad para respirar, dificultad para respirar, dolor en el pecho, visi?n borrosa, p?rdida de la visi?n, n?useas, v?mitos, dolor abdominal, fiebre, escalofr?os, dolor de espalda o cualquier otras quejas. Prescriptions: No Action escitalopram oxalate 10 mg tablet 10 mg PO DAILY Qty: 30 1RF metoprolol succinate 50 mg tablet extended release 24 hr 50 mg PO DAILY Qty: 90 2RF aspirin 81 mg tablet,delayed release (DR/EC) 81 mg PO BEDTIME Qty: 90 2RF polyethylene glycol 3350 [Miralax] 17 gram/dose powder 17 g PO DAILY PRN (Reason: constipation) Qty: 238 0RF lisinopril 40 mg tablet 40 mg PO QPM Qty: 90 0RF Rx Instructions: Please call and schedule cardiology appt acetaminophen 325 mg capsule 325 mg PO QID PRN (Reason: fever or pain) Qty: 30 0RF melatonin 10 mg tablet extended release 10 mg PO .nightly Qty: 5 0RF metoprolol succinate 50 mg tablet extended release 24 hr 50 mg PO DAILY Qty: 14 0RF ciprofloxacin-dexamethasone [Ciprodex] 0.3-0.1 % drops,suspension 4 drp otic (ears) BID 7 Days 0RF alprazolam 0.5 mg Tablet 0.5 mg PO TID PRN (Reason: Anxiety) hydroxyzine HCl 50 mg Tablet 50 mg PO TID PRN (Reason: Anxiety) mirtazapine 45 mg Tablet 45 mg PO BEDTIME multivitamin Capsule 1 cap PO DAILY sertraline 50 mg Tablet 50 mg PO BEDTIME aripiprazole 2 mg Tablet 2 mg PO BEDTIME cholecalciferol (vitamin D3) 25 mcg (1,000 unit) Tablet 25 mcg PO BID omeprazole 20 mg Tablet,Delayed Release (Dr/Ec) 20 mg PO DAILY linaclotide 145 mcg Capsule 145 mcg PO DAILY diphenhydramine HCl [Benadryl] 25 mg capsule 25 mg PO BEDTIME Qty: 7 0RF cefdinir 300 mg capsule 300 mg PO BID 10 Days Qty: 20 0RF ondansetron HCl [Zofran] 4 mg tablet 4 mg PO Q8H PRN (Reason: nausea and vomiting) Qty: 14 0RF cefuroxime axetil 500 mg tablet 500 mg PO BID 7 Days Qty: 14 0RF meclizine 25 mg tablet 25 mg PO TID PRN (Reason: dizziness) Qty: 10 0RF levofloxacin 500 mg tablet 500 mg PO DAILY 7 Days Qty: 7 0RF cefuroxime axetil 500 mg tablet 500 mg PO BID 10 Days Qty: 20 0RF alprazolam 0.25 mg tablet 0.25 mg PO QID Qty: 7 0RF levofloxacin 500 mg tablet 500 mg PO DAILY Qty: 6 0RF Rx Instructions: start on 08/26 ofloxacin 0.3 % drops 10 drp otic (ears) DAILY 7 Days Qty: 5 0RF Rx Instructions: can substitute eye drops if necessary hydrocortisone 2.5 % cream with perineal applicator 1 appl NE BEDTIME PRN (Reason: hemorrhoids) Qty: 30 0RF Hemorrhoidal(PE-min oil-emma) 0.25-14-74.9 % ointment 1 appl NE BID PRN (Reason: hemorrhoids) Qty: 56 0RF polyethylene glycol 3350 [Miralax] 17 gram/dose powder 17 g PO BID Qty: 119 0RF docusate sodium [Colace] 100 mg capsule 100 mg PO BID PRN (Reason: Constipation) Qty: 14 0RF ofloxacin 0.3 % drops 5 drp otic (ear) left BID 7 Days Qty: 5 0RF alprazolam 0.25 mg tablet 0.25 mg PO TID PRN (Reason: anxiety) Qty: 7 0RF alprazolam [Xanax] 0.5 mg tablet 0.5 mg PO BEDTIME PRN (Reason: anxiety) Qty: 7 0RF metoprolol succinate 50 mg tablet extended release 24 hr 50 mg PO DAILY Qty: 7 0RF alprazolam 0.25 mg tablet 0.25 mg PO TID PRN (Reason: anxiety) Qty: 3 0RF ondansetron 4 mg tablet,disintegrating 4 mg PO Q8H PRN (Reason: nausea and vomiting) Qty: 10 0RF hydrocortisone 1 % cream 1 appl topical BID PRN (Reason: rash) Qty: 28.4 0RF Calmoseptine 0.44-20.6 % ointment 1 appl topical QID PRN (Reason: skin irritation) Qty: 113 0RF magnesium citrate Solution 150 ml PO DAILY PRN (Reason: constipation) Qty: 296 0RF Rx Instructions: take only when needed for constipation hydrocortisone acetate [Anucort-HC] 25 mg suppository 25 mg NE BID Qty: 12 3RF zolpidem [Ambien] 5 mg tablet 5 mg PO BEDTIME PRN (Reason: sleep) Qty: 2 0RF zolpidem [Ambien] 5 mg tablet 5 mg PO BEDTIME PRN (Reason: sleep) Qty: 2 0RF Referrals: Name,MD Nitin [Primary Care Provider] - Print Language: Malagasy
[2023-08-06] MEDS: clonazePAM 0.5 MG TABLET PO (09:35)
== END 2023-08-06 09:51 | disposition home or self-care (01) ==
PROVIDERS: Emergency Provider Emergency Medicine; PCP Internal Medicine Geriatric Medicine
DX: F41.0 Panic disorder [episodic paroxysmal anxiety] (principal); Z79.899 Other long term (current) drug therapy
CPT/HCPCS: 99282

== ENCOUNTER 2023-08-09 15:45 | Emergency (ER) | payer OTHER, SELFPAY ==
[2023-08-09 15:51] VITALS: BP 134/68; BP 152/81; PULSE 68; PULSE 84; RESP 18; TEMP 36.6; O2SAT 98; O2SAT 99; BMI 26.9
--- NOTE | 2023-08-09 16:00 | ED.ANXIETY ---
HPI - Anxiety General Chief Complaint: Anxiety Stated Complaint: Anxiety Time Seen by Provider: 08/09/23 15:47 Source: patient and EMS Mode of arrival: EMS Limitations: no limitations History of Present Illness HPI narrative: 77 yo female with PMH of HTN, anxiety, chronic ear infections here with complaints of feeling anxious. Patient reports she would like a dose of clonazepam. Of note Patient filled a size 7 day supply of Xanax on August 04. Patient reports she ran out. She has an appointment on Friday with her psychiatrist. No SI/HI. Patient has had multiple visits for same this month, some on the same days requesting benzos. Related Data Home Medications Medication Instructions Recorded Confirmed alprazolam 0.5 mg tablet 0.5 mg PO TID PRN Anxiety 08/09/20 02/06/23 aripiprazole 2 mg tablet 2 mg PO BEDTIME 08/09/20 02/06/23 cholecalciferol (vitamin D3) 25 25 mcg PO BID 08/09/20 02/06/23 mcg (1,000 unit) tablet hydroxyzine HCl 50 mg tablet 50 mg PO TID PRN Anxiety 08/09/20 02/06/23 linaclotide 145 mcg capsule 145 mcg PO DAILY 08/09/20 02/06/23 mirtazapine 45 mg tablet 45 mg PO BEDTIME 08/09/20 02/06/23 multivitamin 1 cap PO DAILY 08/09/20 02/06/23 omeprazole 20 mg tablet,delayed 20 mg PO DAILY 08/09/20 02/06/23 release sertraline 50 mg tablet 50 mg PO BEDTIME 08/09/20 02/06/23 Previous Rx's Medication Instructions Recorded escitalopram oxalate 10 mg tablet 10 mg PO DAILY #30 tabs 09/06/20 acetaminophen 325 mg capsule 325 mg PO QID PRN fever or pain 09/16/20 #30 caps aspirin 81 mg tablet,delayed 81 mg PO BEDTIME #90 tabs 09/28/20 release metoprolol succinate 50 mg 50 mg PO DAILY #90 tabs 09/28/20 tablet,extended release 24 hr menthol 0.44 %-zinc oxide 20.6 % 1 appl topical QID PRN skin 12/13/20 topical ointment (Calmoseptine) irritation #113 grams magnesium citrate 150 ml PO DAILY PRN constipation 02/04/21 #296 mL diphenhydramine HCl 25 mg capsule 25 mg PO BEDTIME insomnia #7 caps 12/25/20 (Benadryl) melatonin 10 mg tablet,extended 10 mg PO .nightly #5 tabs 01/07/21 release cefdinir 300 mg capsule 300 mg PO BID Otitis media 10 days 04/14/21 #20 caps ondansetron HCl 4 mg tablet 4 mg PO Q8H PRN nausea and 04/14/21 (Zofran) vomiting #14 tabs metoprolol succinate 50 mg 50 mg PO DAILY #14 tabs 05/22/21 tablet,extended release 24 hr ciprofloxacin 0.3 %-dexamethasone 4 drp otic (ears) BID 7 days 05/26/21 0.1 % ear drops,suspension (Ciprodex) polyethylene glycol 3350 17 17 g PO DAILY PRN constipation 07/31/21 gram/dose oral powder (Miralax) #238 grams hydrocortisone acetate 25 mg 25 mg HI BID #12 ea 08/01/21 rectal suppository (Anucort-HC) cefuroxime axetil 500 mg tablet 500 mg PO BID 7 days #14 tabs 09/01/21 meclizine 25 mg tablet 25 mg PO TID PRN dizziness #10 tabs 09/01/21 zolpidem 5 mg tablet (Ambien) 5 mg PO BEDTIME PRN sleep #2 tabs 10/29/21 zolpidem 5 mg tablet (Ambien) 5 mg PO BEDTIME PRN sleep #2 tabs 10/29/21 levofloxacin 500 mg tablet 500 mg PO DAILY 7 days #7 tabs 07/23/22 levofloxacin 500 mg tablet 500 mg PO DAILY #6 tabs 08/25/22 ofloxacin 0.3 % ear drops 10 drp otic (ears) DAILY 7 days #5 08/25/22 mL hydrocortisone 2.5 % topical cream 1 appl HI BEDTIME PRN hemorrhoids 09/20/22 with perineal applicator #30 grams docusate sodium 100 mg capsule 100 mg PO BID PRN Constipation #14 12/06/22 (Colace) caps phenylephrine 0.25 %-mineral oil 1 appl HI BID PRN hemorrhoids #56 12/06/22 14 %-petrolatm 74.9 % rectal grams ointment (Hemorrhoidal(phenyleph-min oil-petrolat)) polyethylene glycol 3350 17 17 g PO BID #119 grams 12/06/22 gram/dose oral powder (Miralax) cefuroxime axetil 500 mg tablet 500 mg PO BID 10 days #20 tabs 12/16/22 alprazolam 0.25 mg tablet 0.25 mg PO QID #7 tabs 01/04/23 ofloxacin 0.3 % ear drops 5 drp otic (ear) left BID 7 days 01/06/23 #5 mL alprazolam 0.25 mg tablet 0.25 mg PO TID PRN anxiety #7 tabs 01/11/23 alprazolam 0.25 mg tablet 0.25 mg PO TID PRN anxiety #3 tabs 02/02/23 alprazolam 0.5 mg tablet (Xanax) 0.5 mg PO BEDTIME PRN anxiety #7 04/20/23 tabs metoprolol succinate 50 mg 50 mg PO DAILY #7 tabs 05/18/23 tablet,extended release 24 hr lisinopril 40 mg tablet 40 mg PO QPM #90 tabs 05/22/23 ondansetron 4 mg disintegrating 4 mg PO Q8H PRN nausea and 07/06/23 tablet vomiting #10 tabs hydrocortisone 1 % topical cream 1 appl topical BID PRN rash #28.4 08/03/23 grams Allergies Allergy/AdvReac Type Severity Reaction Status Date / Time penicillin G [Penicillin G] Allergy Severe ITCHY/RASH Verified 08/06/23 08:43 Sulfa (Sulfonamide Allergy Severe ITCHY,RASH, Verified 08/06/23 08:43 Antibiotics) rash [Sulfa (Sulfonamides)] trimethoprim [From Bactrim] Allergy Severe HIVES Verified 08/06/23 08:43 penicillin V Allergy Unknown rash Verified 08/06/23 08:43 sulfacetamide Allergy Unknown unknown Verified 08/06/23 08:43 [From Sulfacet-R] sulfur [From Sulfacet-R] Allergy Unknown unknown Verified 08/06/23 08:43 Review of Systems Review of Systems: Yes all other systems are reviewed and are negative Constitutional: Constitutional: Reports no additional constitutional complaints, Denies body ache(s), Denies chills, Denies fever(s), Denies headache(s) and Denies weakness Eyes: Eyes: Reports no additional eye complaints and Denies change in vision ENT: Reports system reviewed and no additional complaints, except as documented, Denies dizziness, Denies headache(s), Denies nasal congestion, Denies nasal discharge and Denies neck pain Cardiovascular: Cardiovascular: Reports no additional cardiovascular complaints, Denies chest pain, Denies leg edema and Denies dyspnea Respiratory: Respiratory: Reports no additional respiratory complaints, Denies cough and Denies dyspnea Gastrointestinal: Gastrointestinal: Reports no additional gastrointestinal complaints, Denies abdominal pain, Denies diarrhea, Denies nausea and Denies vomiting Genitourinary: Genitourinary: Reports no additional female genitourinary complaints and Denies urinary incontinence Musculoskeletal: Musculoskeletal: Reports no additional musculoskeletal complaints, Denies back pain, Denies arthralgias, Denies joint swelling, Denies neck pain, Denies numbness and Denies tingling Integumentary/Breasts: Skin/Breast: Reports system reviewed and no additional complaints, except as docu and Denies rash Neurologic: Reports system reviewed and no additional complaints, except as documented, Denies Abnormal speech present, Denies dizziness, Denies headache(s), Denies numbness, Denies tingling and Denies weakness Psychiatric: Psychiatric: Reports anxiety, Denies homicidal ideation and Denies suicidal ideation [facility] Past Medical History Attestation statement: The following information was validated with the patient. Source: old records reviewed and nursing notes reviewed Medical History Bleeding hemorrhoids Essential hypertension PVC (premature ventricular contraction) PAC (premature atrial contraction) SVT (supraventricular tachycardia) Chronic constipation High blood pressure Vertigo Dementia Arthritis Anxiety Surgical History No pertinent past surgical history Social History Social History Alcohol intake: never Patient Tobacco Use Status: Never used Tobacco Advance Directives: No Advance Directives Information Provided: Yes Physical Exam Vital Signs: Vital Signs: Last Vital Signs Temp 97.8 F 08/09/23 15:51 Pulse 68 08/09/23 15:51 Resp 18 08/09/23 15:51 BP 134/68 08/09/23 15:51 Pulse Ox 99 08/09/23 15:51 O2 Del Method Room Air 08/09/23 15:51 BMI result Body Mass Index 26.9 Const: General: cooperative, healthy appearing, comfortable and no acute distress Orientation/consciousness: patient oriented x3 Limitations: no limitations HEENT: Head: Yes normal to inspection Ears: hearing grossly normal bilaterally General nose exam: Normal external nose present Face and sinus: Yes normal facial exam Mouth: Normal oral and palatal mucosa present Throat: Yes posterior oropharynx normal Eyes: General: appearance normal, both eyes and all related structures Pupils: Equal, round and reactive pupils present Neck: Neck: Yes normal visual inspection Chest: Chest palpation & inspection: normal inspection of the chest Resp: Effort & Inspection: normal respiratory effort Auscultation: clear to auscultation bilaterally Cardio: Rate: regular rate Rhythm: regular rhythm Peripheral pulses: Peripheral pulses 2+ throughout GI: Inspection: Yes normal to inspection Palpation (GI): Soft to palpation and nontender Auscultation: normal bowel sounds Back/Spine/Pelvis: Thoracic/Lumbar Spine: thoracic and lumbar spine normal to inspection Skin: General skin exam: no rashes or lesions noted Neuro: General: patient oriented x3, no focal motor deficits and normal sensation to monofilament Cranial nerves: Yes Equal, round and reactive pupils present Cognition (Neuro): normal cognition Speech: No Abnormal speech present Gait exam (Neuro): Normal gait present Motor exam (neuro): 5/5 motor strength present throughout Extrem: General: Yes normal to inspection Medical Decision Making Medical Decision Making MDM Narrative: 77 yo female with PMH of HTN, anxiety, chronic ear infections here with complaints of feeling anxious. Patient reports she would like a dose of clonazepam. Of note Patient filled a size 7 day supply of Xanax on August 04. Patient reports she ran out. She has an appointment on Friday with her psychiatrist. No SI/HI. Patient has had multiple visits for same this month, some on the same days requesting benzos. On review of chart patient should have 8 tablets left of Xanax based on fill history. Recommend she follow-up with her psychiatrist outpatient. Differential Diagnosis Differential Diagnoses: The differential diagnosis associated with the presentation includes anxiety Admission/Observation Consideration of admission/observation: Escalation of care including admission/observation considered no SI or HI to suggest need for crisis consultation Independent Historian Clinical information obtained from an independent historian. History obtained from or confirmed by: EMS External Record Review External record reviewed: Outpatient record Tests considered The following testing was considered but not selected: no need for labs or additional imaging Social Determinants Patient?s care significantly limited by Social Determinants of Health including: Problems related to primary support group Discharge Plan Discharge Clinical Impression: Acute anxiety Patient Disposition: Home, Self-Care Instructions: Anxiety (ED) Additional Instructions: You filled your xanax five days ago and should have two more days worth of xanax. See your psychiatrist on friday [facility]? [facility] xanax hace joe d?as y deber?a tener dos d?as m?s de xanax. Visita a [facility] [place] . Prescriptions: No Action escitalopram oxalate 10 mg tablet 10 mg PO DAILY Qty: 30 1RF metoprolol succinate 50 mg tablet extended release 24 hr 50 mg PO DAILY Qty: 90 2RF aspirin 81 mg tablet,delayed release (DR/EC) 81 mg PO BEDTIME Qty: 90 2RF polyethylene glycol 3350 [Miralax] 17 gram/dose powder 17 g PO DAILY PRN (Reason: constipation) Qty: 238 0RF lisinopril 40 mg tablet 40 mg PO QPM Qty: 90 0RF Rx Instructions: Please call and schedule cardiology appt acetaminophen 325 mg capsule 325 mg PO QID PRN (Reason: fever or pain) Qty: 30 0RF melatonin 10 mg tablet extended release 10 mg PO .nightly Qty: 5 0RF metoprolol succinate 50 mg tablet extended release 24 hr 50 mg PO DAILY Qty: 14 0RF ciprofloxacin-dexamethasone [Ciprodex] 0.3-0.1 % drops,suspension 4 drp otic (ears) BID 7 Days 0RF alprazolam 0.5 mg Tablet 0.5 mg PO TID PRN (Reason: Anxiety) hydroxyzine HCl 50 mg Tablet 50 mg PO TID PRN (Reason: Anxiety) mirtazapine 45 mg Tablet 45 mg PO BEDTIME multivitamin Capsule 1 cap PO DAILY sertraline 50 mg Tablet 50 mg PO BEDTIME aripiprazole 2 mg Tablet 2 mg PO BEDTIME cholecalciferol (vitamin D3) 25 mcg (1,000 unit) Tablet 25 mcg PO BID omeprazole 20 mg Tablet,Delayed Release (Dr/Ec) 20 mg PO DAILY linaclotide 145 mcg Capsule 145 mcg PO DAILY diphenhydramine HCl [Benadryl] 25 mg capsule 25 mg PO BEDTIME Qty: 7 0RF cefdinir 300 mg capsule 300 mg PO BID 10 Days Qty: 20 0RF ondansetron HCl [Zofran] 4 mg tablet 4 mg PO Q8H PRN (Reason: nausea and vomiting) Qty: 14 0RF cefuroxime axetil 500 mg tablet 500 mg PO BID 7 Days Qty: 14 0RF meclizine 25 mg tablet 25 mg PO TID PRN (Reason: dizziness) Qty: 10 0RF levofloxacin 500 mg tablet 500 mg PO DAILY 7 Days Qty: 7 0RF cefuroxime axetil 500 mg tablet 500 mg PO BID 10 Days Qty: 20 0RF alprazolam 0.25 mg tablet 0.25 mg PO QID Qty: 7 0RF levofloxacin 500 mg tablet 500 mg PO DAILY Qty: 6 0RF Rx Instructions: start on 08/26 ofloxacin 0.3 % drops 10 drp otic (ears) DAILY 7 Days Qty: 5 0RF Rx Instructions: can substitute eye drops if necessary hydrocortisone 2.5 % cream with perineal applicator 1 appl HI BEDTIME PRN (Reason: hemorrhoids) Qty: 30 0RF Hemorrhoidal(PE-min oil-emma) 0.25-14-74.9 % ointment 1 appl HI BID PRN (Reason: hemorrhoids) Qty: 56 0RF polyethylene glycol 3350 [Miralax] 17 gram/dose powder 17 g PO BID Qty: 119 0RF docusate sodium [Colace] 100 mg capsule 100 mg PO BID PRN (Reason: Constipation) Qty: 14 0RF ofloxacin 0.3 % drops 5 drp otic (ear) left BID 7 Days Qty: 5 0RF alprazolam 0.25 mg tablet 0.25 mg PO TID PRN (Reason: anxiety) Qty: 7 0RF alprazolam [Xanax] 0.5 mg tablet 0.5 mg PO BEDTIME PRN (Reason: anxiety) Qty: 7 0RF metoprolol succinate 50 mg tablet extended release 24 hr 50 mg PO DAILY Qty: 7 0RF alprazolam 0.25 mg tablet 0.25 mg PO TID PRN (Reason: anxiety) Qty: 3 0RF ondansetron 4 mg tablet,disintegrating 4 mg PO Q8H PRN (Reason: nausea and vomiting) Qty: 10 0RF hydrocortisone 1 % cream 1 appl topical BID PRN (Reason: rash) Qty: 28.4 0RF Calmoseptine 0.44-20.6 % ointment 1 appl topical QID PRN (Reason: skin irritation) Qty: 113 0RF magnesium citrate Solution 150 ml PO DAILY PRN (Reason: constipation) Qty: 296 0RF Rx Instructions: take only when needed for constipation hydrocortisone acetate [Anucort-HC] 25 mg suppository 25 mg HI BID Qty: 12 3RF zolpidem [Ambien] 5 mg tablet 5 mg PO BEDTIME PRN (Reason: sleep) Qty: 2 0RF zolpidem [Ambien] 5 mg tablet 5 mg PO BEDTIME PRN (Reason: sleep) Qty: 2 0RF Referrals: ED Physician,Generic [Physician] - Interventions: ED Discharge Assessment Last Done: 08/09/23 16:12 Discharge Date/Time: 08/09/23 16:17
== END 2023-08-09 16:17 | disposition home or self-care (01) ==
LOC: HO.ED 16:13
PROVIDERS: Emergency Provider Emergency Medicine
DX: F41.9 Anxiety disorder, unspecified (principal); I10 Essential (primary) hypertension; Z79.899 Other long term (current) drug therapy
CPT/HCPCS: 99282

== ENCOUNTER 2023-08-09 21:58 | Emergency (ER) | payer OTHER, SELFPAY ==
--- NOTE | 2023-08-09 | ECG_ITS ---
Test Reason : PANIC ATTACK Blood Pressure : / mmHG Vent. Rate : 065 BPM Atrial Rate : 065 BPM P-R Int : 188 ms QRS Dur : 100 ms QT Int : 396 ms P-R-T Axes : 031 -30 -01 degrees QTc Int : 411 ms Sinus rhythm with marked sinus arrhythmia Left axis deviation Moderate voltage criteria for LVH, may be normal variant ( R in aVL , [place] product ) Abnormal ECG When compared with ECG of 03-AUG-2023 01:08, No significant change was found Referred By: Generic ED Physician Electronically Signed By:DEANN CISNEROS
[2023-08-09 22:10] VITALS: BP 144/82; PULSE 74; O2SAT 100
[2023-08-09 22:23] VITALS: BP 125/63; PULSE 80; RESP 18; TEMP 36.5; O2SAT 99; BMI 27.5
--- NOTE | 2023-08-09 23:07 | ED.PSYCH ---
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 She event states give me a dose and I will leave. She should have 8 pills left in her Rx MD complaint: anxiety Onset (ago): year(s) Duration: constant History of same: Yes Context: other Associated psychiatric symptoms: none Associated symptoms: denies other symptoms Treatments prior to arrival: none Related Data Home Medications Medication Instructions Recorded Confirmed alprazolam 0.5 mg tablet 0.5 mg PO TID PRN Anxiety 08/09/20 02/06/23 aripiprazole 2 mg tablet 2 mg PO BEDTIME 08/09/20 02/06/23 cholecalciferol (vitamin D3) 25 25 mcg PO BID 08/09/20 02/06/23 mcg (1,000 unit) tablet hydroxyzine HCl 50 mg tablet 50 mg PO TID PRN Anxiety 08/09/20 02/06/23 linaclotide 145 mcg capsule 145 mcg PO DAILY 08/09/20 02/06/23 mirtazapine 45 mg tablet 45 mg PO BEDTIME 08/09/20 02/06/23 multivitamin 1 cap PO DAILY 08/09/20 02/06/23 omeprazole 20 mg tablet,delayed 20 mg PO DAILY 08/09/20 02/06/23 release sertraline 50 mg tablet 50 mg PO BEDTIME 08/09/20 02/06/23 Previous Rx's Medication Instructions Recorded escitalopram oxalate 10 mg tablet 10 mg PO DAILY #30 tabs 09/06/20 acetaminophen 325 mg capsule 325 mg PO QID PRN fever or pain 09/16/20 #30 caps aspirin 81 mg tablet,delayed 81 mg PO BEDTIME #90 tabs 09/28/20 release metoprolol succinate 50 mg 50 mg PO DAILY #90 tabs 09/28/20 tablet,extended release 24 hr menthol 0.44 %-zinc oxide 20.6 % 1 appl topical QID PRN skin 12/13/20 topical ointment (Calmoseptine) irritation #113 grams magnesium citrate 150 ml PO DAILY PRN constipation 12/14/20 #296 mL diphenhydramine HCl 25 mg capsule 25 mg PO BEDTIME insomnia #7 caps 12/25/20 (Benadryl) melatonin 10 mg tablet,extended 10 mg PO .nightly #5 tabs 01/07/21 release cefdinir 300 mg capsule 300 mg PO BID Otitis media 10 days 04/14/21 #20 caps ondansetron HCl 4 mg tablet 4 mg PO Q8H PRN nausea and 04/14/21 (Zofran) vomiting #14 tabs metoprolol succinate 50 mg 50 mg PO DAILY #14 tabs 05/22/21 tablet,extended release 24 hr ciprofloxacin 0.3 %-dexamethasone 4 drp otic (ears) BID 7 days 05/26/21 0.1 % ear drops,suspension (Ciprodex) polyethylene glycol 3350 17 17 g PO DAILY PRN constipation 07/31/21 gram/dose oral powder (Miralax) #238 grams hydrocortisone acetate [address] BID #12 ea 08/01/21 rectal suppository (Anucort-HC) cefuroxime axetil 500 mg tablet 500 mg PO BID 7 days #14 tabs 09/01/21 meclizine 25 mg tablet 25 mg PO TID PRN dizziness #10 tabs 09/01/21 zolpidem 5 mg tablet (Ambien) 5 mg PO BEDTIME PRN sleep #2 tabs 10/29/21 zolpidem 5 mg tablet (Ambien) 5 mg PO BEDTIME PRN sleep #2 tabs 10/29/21 levofloxacin 500 mg tablet 500 mg PO DAILY 7 days #7 tabs 07/23/22 levofloxacin 500 mg tablet 500 mg PO DAILY #6 tabs 08/25/22 ofloxacin 0.3 % ear drops 10 drp otic (ears) DAILY 7 days #5 08/25/22 mL hydrocortisone 2.5 % topical cream [address] BEDTIME PRN hemorrhoids 09/20/22 with perineal applicator #30 grams docusate sodium 100 mg capsule 100 mg PO BID PRN Constipation #14 12/06/22 (Colace) caps phenylephrine 0.25 %-mineral oil [address] BID PRN hemorrhoids #56 12/06/22 14 %-petrolatm 74.9 % rectal grams ointment (Hemorrhoidal(phenyleph-min oil-petrolat)) polyethylene glycol 3350 17 17 g PO BID #119 grams 12/06/22 gram/dose oral powder (Miralax) cefuroxime axetil 500 mg tablet 500 mg PO BID 10 days #20 tabs 12/16/22 alprazolam 0.25 mg tablet 0.25 mg PO QID #7 tabs 01/04/23 ofloxacin 0.3 % ear drops 5 drp otic (ear) left BID 7 days 01/06/23 #5 mL alprazolam 0.25 mg tablet 0.25 mg PO TID PRN anxiety #7 tabs 01/11/23 alprazolam 0.25 mg tablet 0.25 mg PO TID PRN anxiety #3 tabs 02/02/23 alprazolam 0.5 mg tablet (Xanax) 0.5 mg PO BEDTIME PRN anxiety #7 04/20/23 tabs metoprolol succinate 50 mg 50 mg PO DAILY #7 tabs 05/18/23 tablet,extended release 24 hr lisinopril 40 mg tablet 40 mg PO QPM #90 tabs 05/22/23 ondansetron 4 mg disintegrating 4 mg PO Q8H PRN nausea and 07/06/23 tablet vomiting #10 tabs hydrocortisone 1 % topical cream 1 appl topical BID PRN rash #28.4 08/03/23 grams Allergies Allergy/AdvReac Type Severity Reaction Status Date / Time penicillin G [Penicillin G] Allergy Severe ITCHY/RASH Verified 08/06/23 08:43 Sulfa (Sulfonamide Allergy Severe ITCHY,RASH, Verified 08/06/23 08:43 Antibiotics) rash [Sulfa (Sulfonamides)] trimethoprim [From Bactrim] Allergy Severe HIVES Verified 08/06/23 08:43 penicillin V Allergy Unknown rash Verified 08/06/23 08:43 sulfacetamide Allergy Unknown unknown Verified 08/06/23 08:43 [From Sulfacet-R] sulfur [From Sulfacet-R] Allergy Unknown unknown Verified 08/06/23 08:43 Review of Systems Review of Systems: Constitutional : No Fever, No Chills ENT/Mouth : No Ear Pain, No Nasal Congestion, No sore throat Eyes: No Eye Pain, No Swelling, No Redness Cardiovascular : No Chest Pain, No SOB Respiratory : No Cough, No Sputum, No Dyspnea Gastrointestinal : No Nausea, No Vomiting, No Diarrhea, No Hematochezia, No Melena Genitourinary : No Dysuria, No Urinary Frequency, No Hematuria Musculoskeletal : No Myalgias Skin : No Skin Lesions, No rash Neuro : No Weakness, No Numbness, No Paresthesias, No Dizziness, No Headache Psych : positive Anxiety, positive Depression, no SI/HI Heme/Lymph: No Lymphadenopathy Endocrine : No Polyuria, No Polydipsia All other systems reviewed and are negative [facility] Past Medical History Attestation statement: The following information was validated with the patient. Medical History Bleeding hemorrhoids Essential hypertension PVC (premature ventricular contraction) PAC (premature atrial contraction) SVT (supraventricular tachycardia) Chronic constipation High blood pressure Vertigo Dementia Arthritis Anxiety Surgical History No pertinent past surgical history Social History Social History Alcohol intake: never Patient Tobacco Use Status: Never used Tobacco Advance Directives: No Advance Directives Information Provided: Yes Physical Exam Vital Signs: Vital Signs: Last Vital Signs Temp 97.7 F 08/09/23 22:23 Pulse 80 08/09/23 22:23 Resp 18 08/09/23 22:23 BP 125/63 08/09/23 22:23 Pulse Ox 99 08/09/23 22:23 O2 Del Method Room Air 08/09/23 22:23 BMI result Body Mass Index 27.5 Appearance: Alert. Oriented X3. No acute distress. no tremors Eyes: Pupils equal, round and reactive to light. ENT: Pharynx normal. Neck: Normal inspection. Neck supple. CVS: . Pulses normal. Respiratory: No respiratory distress. Abdomen: atraumatic Skin: Skin warm and dry. Normal skin color. Normal skin turgor. Extremities: No lower extremity edema. Neuro: Oriented X 3. No motor deficit. No sensory deficit. Medical Decision Making Medical Decision Making MDM Narrative: 77 yo female well known to us here again asking for oral anxiolytic specifically clonazepam she has normal VS she just wants a dose and wants to go home she is in her robe. she now states she cannot get her leftover 8 pill as her daughter has them in [place] - at this time I do not feel comfortable dosing her given repeated visits and changing stories about medications she is also not exhibiting withdrawal symptoms. stable for DC Differential Diagnosis Differential Diagnoses: The differential diagnosis associated with the presentation includes drug seeking behavior, anxiety Independent Interpretation I performed an independent interpretation of an: EKG Interpretation: Rate: 65 Rhythm: NSR [place]: left LVH Normal P waves. Normal MALIK. Normal QRS complex. ST T wave : normal inverted t wave III qTC: normal prior studies: no acute ischemia The study has been interpreted contemporaneously by me. . External Record Review External record reviewed: Inpatient record Social Determinants Patient?s care significantly limited by Social Determinants of Health including: Problems related to primary support group and Other Social Determinant of Health Discharge Plan Discharge Clinical Impression: Acute anxiety Patient Disposition: Home, Self-Care Instructions: Anxiety (ED) Additional Instructions: please stop coming to the ED for your clonazepam you need to follow up with your doctor. your EKG and BP was normal. isabel baumann ED rosalie clonazepam ou ou bezwen swiv ak dokt? ou. EKG ou ak BP te n?mal. Prescriptions: No Action escitalopram oxalate 10 mg tablet 10 mg PO DAILY Qty: 30 1RF metoprolol succinate 50 mg tablet extended release 24 hr 50 mg PO DAILY Qty: 90 2RF aspirin 81 mg tablet,delayed release (DR/EC) 81 mg PO BEDTIME Qty: 90 2RF polyethylene glycol 3350 [Miralax] 17 gram/dose powder 17 g PO DAILY PRN (Reason: constipation) Qty: 238 0RF lisinopril 40 mg tablet 40 mg PO QPM Qty: 90 0RF Rx Instructions: Please call and schedule cardiology appt acetaminophen 325 mg capsule 325 mg PO QID PRN (Reason: fever or pain) Qty: 30 0RF melatonin 10 mg tablet extended release 10 mg PO .nightly Qty: 5 0RF metoprolol succinate 50 mg tablet extended release 24 hr 50 mg PO DAILY Qty: 14 0RF ciprofloxacin-dexamethasone [Ciprodex] 0.3-0.1 % drops,suspension 4 drp otic (ears) BID 7 Days 0RF alprazolam 0.5 mg Tablet 0.5 mg PO TID PRN (Reason: Anxiety) hydroxyzine HCl 50 mg Tablet 50 mg PO TID PRN (Reason: Anxiety) mirtazapine 45 mg Tablet 45 mg PO BEDTIME multivitamin Capsule 1 cap PO DAILY sertraline 50 mg Tablet 50 mg PO BEDTIME aripiprazole 2 mg Tablet 2 mg PO BEDTIME cholecalciferol (vitamin D3) 25 mcg (1,000 unit) Tablet 25 mcg PO BID omeprazole 20 mg Tablet,Delayed Release (Dr/Ec) 20 mg PO DAILY linaclotide 145 mcg Capsule 145 mcg PO DAILY diphenhydramine HCl [Benadryl] 25 mg capsule 25 mg PO BEDTIME Qty: 7 0RF cefdinir 300 mg capsule 300 mg PO BID 10 Days Qty: 20 0RF ondansetron HCl [Zofran] 4 mg tablet 4 mg PO Q8H PRN (Reason: nausea and vomiting) Qty: 14 0RF cefuroxime axetil 500 mg tablet 500 mg PO BID 7 Days Qty: 14 0RF meclizine 25 mg tablet 25 mg PO TID PRN (Reason: dizziness) Qty: 10 0RF levofloxacin 500 mg tablet 500 mg PO DAILY 7 Days Qty: 7 0RF cefuroxime axetil 500 mg tablet 500 mg PO BID 10 Days Qty: 20 0RF alprazolam 0.25 mg tablet 0.25 mg PO QID Qty: 7 0RF levofloxacin 500 mg tablet 500 mg PO DAILY Qty: 6 0RF Rx Instructions: start on 08/26 ofloxacin 0.3 % drops 10 drp otic (ears) DAILY 7 Days Qty: 5 0RF Rx Instructions: can substitute eye drops if necessary hydrocortisone 2.5 % cream with perineal applicator [address] BEDTIME PRN (Reason: hemorrhoids) Qty: 30 0RF Hemorrhoidal(PE-min oil-emma) 0.25-14-74.9 % ointment [address] BID PRN (Reason: hemorrhoids) Qty: 56 0RF polyethylene glycol 3350 [Miralax] 17 gram/dose powder 17 g PO BID Qty: 119 0RF docusate sodium [Colace] 100 mg capsule 100 mg PO BID PRN (Reason: Constipation) Qty: 14 0RF ofloxacin 0.3 % drops 5 drp otic (ear) left BID 7 Days Qty: 5 0RF alprazolam 0.25 mg tablet 0.25 mg PO TID PRN (Reason: anxiety) Qty: 7 0RF alprazolam [Xanax] 0.5 mg tablet 0.5 mg PO BEDTIME PRN (Reason: anxiety) Qty: 7 0RF metoprolol succinate 50 mg tablet extended release 24 hr 50 mg PO DAILY Qty: 7 0RF alprazolam 0.25 mg tablet 0.25 mg PO TID PRN (Reason: anxiety) Qty: 3 0RF ondansetron 4 mg tablet,disintegrating 4 mg PO Q8H PRN (Reason: nausea and vomiting) Qty: 10 0RF hydrocortisone 1 % cream 1 appl topical BID PRN (Reason: rash) Qty: 28.4 0RF Calmoseptine 0.44-20.6 % ointment 1 appl topical QID PRN (Reason: skin irritation) Qty: 113 0RF magnesium citrate Solution 150 ml PO DAILY PRN (Reason: constipation) Qty: 296 0RF Rx Instructions: take only when needed for constipation hydrocortisone acetate [Anucort-HC] 25 mg suppository [address] BID Qty: 12 3RF zolpidem [Ambien] 5 mg tablet 5 mg PO BEDTIME PRN (Reason: sleep) Qty: 2 0RF zolpidem [Ambien] 5 mg tablet 5 mg PO BEDTIME PRN (Reason: sleep) Qty: 2 0RF Interventions: ED Discharge Assessment Last Done: 08/09/23 23:13 Discharge Date/Time: 08/09/23 23:14 Print Language: Sinhala
== END 2023-08-09 23:14 | disposition home or self-care (01) ==
PROVIDERS: Emergency Provider Emergency Medicine
DX: F41.9 Anxiety disorder, unspecified (principal); I10 Essential (primary) hypertension; Z79.899 Other long term (current) drug therapy; Z79.82 Long term (current) use of aspirin
CPT/HCPCS: 93005; 99283

== ENCOUNTER 2023-08-12 03:29 | Emergency (ER) | payer OTHER, SELFPAY ==
[2023-08-12 03:43] VITALS: BP 167/76; BP 198/98; PULSE 100; PULSE 98; RESP 16; TEMP 37; O2SAT 100; BMI 28.4
--- NOTE | 2023-08-12 03:47 | ED_ITS ---
HPI - Anxiety General Chief Complaint: Fall Stated Complaint: left leg pain with numbness Time Seen by Provider: 08/12/23 03:34 Source: patient Mode of arrival: ambulatory Limitations: no limitations History of Present Illness HPI narrative: 77-year-old female with history of hypertension and anxiety presents after a fall. Patient was walking from her kitchen to the bathroom when she felt like her left leg became slightly non, lost balance and fell to the floor. Those symptoms have since resolved. She denies any significant pain. There is no clear relieving or exacerbating features. Now she notes that she is having anxiety because of the numbness even though it has resolved. The anxiety is moderate to severe. Better with medications. Her anxiety can also be exacerbated when her blood pressure is elevated. She is requesting Xanax. Related Data Home Medications Medication Instructions Recorded Confirmed alprazolam 0.5 mg tablet 0.5 mg PO TID PRN Anxiety 08/09/20 02/06/23 aripiprazole 2 mg tablet 2 mg PO BEDTIME 08/09/20 02/06/23 cholecalciferol (vitamin D3) 25 25 mcg PO BID 08/09/20 02/06/23 mcg (1,000 unit) tablet hydroxyzine HCl 50 mg tablet 50 mg PO TID PRN Anxiety 08/09/20 02/06/23 linaclotide 145 mcg capsule 145 mcg PO DAILY 08/09/20 02/06/23 mirtazapine 45 mg tablet 45 mg PO BEDTIME 08/09/20 02/06/23 multivitamin 1 cap PO DAILY 08/09/20 02/06/23 omeprazole 20 mg tablet,delayed 20 mg PO DAILY 08/09/20 02/06/23 release sertraline 50 mg tablet 50 mg PO BEDTIME 08/09/20 02/06/23 Previous Rx's Medication Instructions Recorded escitalopram oxalate 10 mg tablet 10 mg PO DAILY #30 tabs 09/06/20 acetaminophen 325 mg capsule 325 mg PO QID PRN fever or pain 09/16/20 #30 caps aspirin 81 mg tablet,delayed 81 mg PO BEDTIME #90 tabs 09/28/20 release metoprolol succinate 50 mg 50 mg PO DAILY #90 tabs 09/28/20 tablet,extended release 24 hr menthol 0.44 %-zinc oxide 20.6 % 1 appl topical QID PRN skin 12/13/20 topical ointment (Calmoseptine) irritation #113 grams magnesium citrate 150 ml PO DAILY PRN constipation 12/14/20 #296 mL diphenhydramine HCl 25 mg capsule 25 mg PO BEDTIME insomnia #7 caps 12/25/20 (Benadryl) melatonin 10 mg tablet,extended 10 mg PO .nightly #5 tabs 01/07/21 release cefdinir 300 mg capsule 300 mg PO BID Otitis media 10 days 04/14/21 #20 caps ondansetron HCl 4 mg tablet 4 mg PO Q8H PRN nausea and 04/14/21 (Zofran) vomiting #14 tabs metoprolol succinate 50 mg 50 mg PO DAILY #14 tabs 05/22/21 tablet,extended release 24 hr ciprofloxacin 0.3 %-dexamethasone 4 drp otic (ears) BID 7 days 05/26/21 0.1 % ear drops,suspension (Ciprodex) polyethylene glycol 3350 17 17 g PO DAILY PRN constipation 07/31/21 gram/dose oral powder (Miralax) #238 grams hydrocortisone acetate 25 mg 25 mg IN BID #12 ea 08/01/21 rectal suppository (Anucort-HC) cefuroxime axetil 500 mg tablet 500 mg PO BID 7 days #14 tabs 09/01/21 meclizine 25 mg tablet 25 mg PO TID PRN dizziness #10 tabs 09/01/21 zolpidem 5 mg tablet (Ambien) 5 mg PO BEDTIME PRN sleep #2 tabs 10/29/21 zolpidem 5 mg tablet (Ambien) 5 mg PO BEDTIME PRN sleep #2 tabs 10/29/21 levofloxacin 500 mg tablet 500 mg PO DAILY 7 days #7 tabs 07/23/22 levofloxacin 500 mg tablet 500 mg PO DAILY #6 tabs 08/25/22 ofloxacin 0.3 % ear drops 10 drp otic (ears) DAILY 7 days #5 08/25/22 mL hydrocortisone 2.5 % topical cream 1 appl IN BEDTIME PRN hemorrhoids 09/20/22 with perineal applicator #30 grams docusate sodium 100 mg capsule 100 mg PO BID PRN Constipation #14 12/06/22 (Colace) caps phenylephrine 0.25 %-mineral oil 1 appl IN BID PRN hemorrhoids #56 12/06/22 14 %-petrolatm 74.9 % rectal grams ointment (Hemorrhoidal(phenyleph-min oil-petrolat)) polyethylene glycol 3350 17 17 g PO BID #119 grams 12/06/22 gram/dose oral powder (Miralax) cefuroxime axetil 500 mg tablet 500 mg PO BID 10 days #20 tabs 12/16/22 alprazolam 0.25 mg tablet 0.25 mg PO QID #7 tabs 01/04/23 ofloxacin 0.3 % ear drops 5 drp otic (ear) left BID 7 days 01/06/23 #5 mL alprazolam 0.25 mg tablet 0.25 mg PO TID PRN anxiety #7 tabs 01/11/23 alprazolam 0.25 mg tablet 0.25 mg PO TID PRN anxiety #3 tabs 02/02/23 alprazolam 0.5 mg tablet (Xanax) 0.5 mg PO BEDTIME PRN anxiety #7 04/20/23 tabs metoprolol succinate 50 mg 50 mg PO DAILY #7 tabs 05/18/23 tablet,extended release 24 hr lisinopril 40 mg tablet 40 mg PO QPM #90 tabs 05/22/23 ondansetron 4 mg disintegrating 4 mg PO Q8H PRN nausea and 07/06/23 tablet vomiting #10 tabs hydrocortisone 1 % topical cream 1 appl topical BID PRN rash #28.4 08/03/23 grams Allergies Allergy/AdvReac Type Severity Reaction Status Date / Time penicillin G [Penicillin G] Allergy Severe ITCHY/RASH Verified 08/06/23 08:43 Sulfa (Sulfonamide Allergy Severe ITCHY,RASH, Verified 08/06/23 08:43 Antibiotics) rash [Sulfa (Sulfonamides)] trimethoprim [From Bactrim] Allergy Severe HIVES Verified 08/06/23 08:43 penicillin V Allergy Unknown rash Verified 08/06/23 08:43 sulfacetamide Allergy Unknown unknown Verified 08/06/23 08:43 [From Sulfacet-R] sulfur [From Sulfacet-R] Allergy Unknown unknown Verified 08/06/23 08:43 Review of Systems Review of Systems: CONSTITUTIONAL: Denies weight loss, fever and chills. HEENT: Denies changes in vision and hearing. RESPIRATORY: Denies SOB and cough. CV: Denies palpitations no CP. GI: Denies abdominal pain, nausea, vomiting and diarrhea. : Denies dysuria and urinary frequency. MSK: Denies myalgia and joint pain. SKIN: Denies rash and pruritus. NEUROLOGICAL: Denies headache and syncope. PSYCHIATRIC: Denies recent changes in mood. + anxiety All other ROS are negative unless in HPI PMFSH Past Medical History Medical History Bleeding hemorrhoids Essential hypertension PVC (premature ventricular contraction) PAC (premature atrial contraction) SVT (supraventricular tachycardia) Chronic constipation High blood pressure Vertigo Dementia Arthritis Anxiety Surgical History No pertinent past surgical history Social History Social History Alcohol intake: never Patient Tobacco Use Status: Never used Tobacco Advance Directives: No Advance Directives Information Provided: Yes Physical Exam Vital Signs: Vital Signs: Last Vital Signs Temp 98.2 F 08/12/23 04:16 Pulse 72 08/12/23 04:16 Resp 16 08/12/23 04:16 BP 153/72 H 08/12/23 04:16 Pulse Ox 98 08/12/23 04:16 O2 Del Method Room Air 08/12/23 04:16 BMI result Body Mass Index 28.4 GEN: Well developed, no acute distress, alert, oriented HEENT: Normocephalic, atraumatic, normal external ears, nose appears normal, no oropharyngeal edema or exudates Eyes: Normal to appearance Neck: Supple, no lymphadenopathy Respiratory: Talks in complete sentences, no respiratory distress, clear to au scultation bilaterally Cardiovascular: Regular rate and rhythm, no murmurs rubs or gallops Abdomen: Soft, nontender, nondistended, no guarding, no rebound Back: No CVA tenderness Extremities: No clubbing cyanosis or edema Neurologic: No focal neurologic deficits, cranial nerves 2-12 intact, strength is 5/5 bilaterally Skin: No rash Course Reevaluation(s) Reevaluation #1: Patient is feeling much better wound like to be discharged at this time. Again, I have recommended longer-acting anxiety medications to assist with her symptomatology. I recommended she follow-up with her primary care provider regarding this suggestion. Time: :24 Medications Administered Discontinued Medications Generic Name Dose Route Start Last Admin Trade Name Beau PRN Reason Stop Dose Admin Alprazolam 0.25 mg 08/12/23 03:34 08/12/23 04:00 Alprazolam 0.25 Mg Tablet PO 08/12/23 03:35 0.25 mg ONCE ONE Administration Medical Decision Making Medical Decision Making MDM Narrative: Patient presents with an acute fall with no apparent injury as well as associated with anxiety. She describes some paresthesias but physical exam did not reveal any focal neurologic deficits. His most likely anxiety and panic attack. She received Xanax 0.25 mg. Will re-evaluate patient. Differential diagnosis includes anxiety, panic, paresthesia, gait instability. No imaging or laboratory testing need be performed at this time. Independent Historian Clinical information obtained from an independent historian. History obtained from or confirmed by: EMS Prescription Management I considered prescription management with: Pain Medication and Other (Anxiety medications) Chronic Conditions Patient?s care impacted by: Hypertension Discharge Plan Discharge Clinical Impression: Paresthesia, Accidental fall, Anxiety Patient Disposition: Home, Self-Care Instructions: Paresthesia (ED), Anxiety (ED), Fall Prevention (ED) Prescriptions: No Action escitalopram oxalate 10 mg tablet 10 mg PO DAILY Qty: 30 1RF metoprolol succinate 50 mg tablet extended release 24 hr 50 mg PO DAILY Qty: 90 2RF aspirin 81 mg tablet,delayed release (DR/EC) 81 mg PO BEDTIME Qty: 90 2RF polyethylene glycol 3350 [Miralax] 17 gram/dose powder 17 g PO DAILY PRN (Reason: constipation) Qty: 238 0RF lisinopril 40 mg tablet 40 mg PO QPM Qty: 90 0RF Rx Instructions: Please call and schedule cardiology appt acetaminophen 325 mg capsule 325 mg PO QID PRN (Reason: fever or pain) Qty: 30 0RF melatonin 10 mg tablet extended release 10 mg PO .nightly Qty: 5 0RF metoprolol succinate 50 mg tablet extended release 24 hr 50 mg PO DAILY Qty: 14 0RF ciprofloxacin-dexamethasone [Ciprodex] 0.3-0.1 % drops,suspension 4 drp otic (ears) BID 7 Days 0RF alprazolam 0.5 mg Tablet 0.5 mg PO TID PRN (Reason: Anxiety) hydroxyzine HCl 50 mg Tablet 50 mg PO TID PRN (Reason: Anxiety) mirtazapine 45 mg Tablet 45 mg PO BEDTIME multivitamin Capsule 1 cap PO DAILY sertraline 50 mg Tablet 50 mg PO BEDTIME aripiprazole 2 mg Tablet 2 mg PO BEDTIME cholecalciferol (vitamin D3) 25 mcg (1,000 unit) Tablet 25 mcg PO BID omeprazole 20 mg Tablet,Delayed Release (Dr/Ec) 20 mg PO DAILY linaclotide 145 mcg Capsule 145 mcg PO DAILY diphenhydramine HCl [Benadryl] 25 mg capsule 25 mg PO BEDTIME Qty: 7 0RF cefdinir 300 mg capsule 300 mg PO BID 10 Days Qty: 20 0RF ondansetron HCl [Zofran] 4 mg tablet 4 mg PO Q8H PRN (Reason: nausea and vomiting) Qty: 14 0RF cefuroxime axetil 500 mg tablet 500 mg PO BID 7 Days Qty: 14 0RF meclizine 25 mg tablet 25 mg PO TID PRN (Reason: dizziness) Qty: 10 0RF levofloxacin 500 mg tablet 500 mg PO DAILY 7 Days Qty: 7 0RF cefuroxime axetil 500 mg tablet 500 mg PO BID 10 Days Qty: 20 0RF alprazolam 0.25 mg tablet 0.25 mg PO QID Qty: 7 0RF levofloxacin 500 mg tablet 500 mg PO DAILY Qty: 6 0RF Rx Instructions: start on 08/26 ofloxacin 0.3 % drops 10 drp otic (ears) DAILY 7 Days Qty: 5 0RF Rx Instructions: can substitute eye drops if necessary hydrocortisone 2.5 % cream with perineal applicator 1 appl IN BEDTIME PRN (Reason: hemorrhoids) Qty: 30 0RF Hemorrhoidal(PE-min oil-emma) 0.25-14-74.9 % ointment 1 appl IN BID PRN (Reason: hemorrhoids) Qty: 56 0RF polyethylene glycol 3350 [Miralax] 17 gram/dose powder 17 g PO BID Qty: 119 0RF docusate sodium [Colace] 100 mg capsule 100 mg PO BID PRN (Reason: Constipation) Qty: 14 0RF ofloxacin 0.3 % drops 5 drp otic (ear) left BID 7 Days Qty: 5 0RF alprazolam 0.25 mg tablet 0.25 mg PO TID PRN (Reason: anxiety) Qty: 7 0RF alprazolam [Xanax] 0.5 mg tablet 0.5 mg PO BEDTIME PRN (Reason: anxiety) Qty: 7 0RF metoprolol succinate 50 mg tablet extended release 24 hr 50 mg PO DAILY Qty: 7 0RF alprazolam 0.25 mg tablet 0.25 mg PO TID PRN (Reason: anxiety) Qty: 3 0RF ondansetron 4 mg tablet,disintegrating 4 mg PO Q8H PRN (Reason: nausea and vomiting) Qty: 10 0RF hydrocortisone 1 % cream 1 appl topical BID PRN (Reason: rash) Qty: 28.4 0RF Calmoseptine 0.44-20.6 % ointment 1 appl topical QID PRN (Reason: skin irritation) Qty: 113 0RF magnesium citrate Solution 150 ml PO DAILY PRN (Reason: constipation) Qty: 296 0RF Rx Instructions: take only when needed for constipation hydrocortisone acetate [Anucort-HC] 25 mg suppository 25 mg IN BID Qty: 12 3RF zolpidem [Ambien] 5 mg tablet 5 mg PO BEDTIME PRN (Reason: sleep) Qty: 2 0RF zolpidem [Ambien] 5 mg tablet 5 mg PO BEDTIME PRN (Reason: sleep) Qty: 2 0RF Referrals: Name,MD Nitin [Primary Care Provider] - 3 days
[2023-08-12] MEDS: ALPRAZolam 0.25 MG TABLET PO (04:00)
[2023-08-12 04:16] VITALS: BP 153/72; PULSE 72; RESP 16; TEMP 36.8; O2SAT 98
--- NOTE | 2023-08-12 04:18 | PC.NURSE ---
medicated per mar.
--- NOTE | 2023-08-12 04:18 | PC.NURSE ---
pt a&o, no sob or chest pain, Reviewed discharge instruction with pt. pt verbalized understanding.
--- NOTE | 2023-08-12 04:30 | PC.NURSE ---
Pt a&o, no sob or chest pain, neuro intact, positive cms and pedal pluses to lower extremities. pt able to ambulate to bathroom with a steady gait. reviewed discharge instructions with pt. pt verbalized understanding.
== END 2023-08-12 04:32 | disposition home or self-care (01) ==
PROVIDERS: Emergency Provider Emergency Medicine; PCP Internal Medicine Geriatric Medicine
DX: R20.2 Paresthesia of skin (principal); F41.9 Anxiety disorder, unspecified; M79.605 Pain in left leg; Z91.81 History of falling; Z79.899 Other long term (current) drug therapy; Z79.82 Long term (current) use of aspirin
CPT/HCPCS: 99283; 99284

== ENCOUNTER 2023-08-14 18:50 | Outpatient (REF) | payer OTHER, SELFPAY | END 2023-08-14 18:51 | disposition home or self-care (01) | LOC: HO.HHCLNP 18:50 | PROVIDERS: Visit Provider Family Medicine | DX: J06.9 Acute upper respiratory infection, unspecified (principal); Z11.52 Encounter for screening for COVID-19 | CPT/HCPCS: 0241U; 87070 ==

== ENCOUNTER 2023-08-16 05:24 | Emergency (ER) | payer OTHER, SELFPAY ==
[2023-08-16 05:31] VITALS: BP 145/77; BP 148/92; PULSE 123; PULSE 88; RESP 16; TEMP 36.9; O2SAT 100; O2SAT 98; BMI 26.5
--- NOTE | 2023-08-16 06:43 | ED.GENADULT ---
HPI - General Adult General Chief complaint: Abdominal Pain Stated complaint: constipation Time Seen by Provider: 08/16/23 06:40 Source: patient, EMS and pulverizer tender Mode of arrival: EMS Limitations: language barrier Related Data Home Medications Medication Instructions Recorded Confirmed alprazolam 0.5 mg tablet 0.5 mg PO TID PRN Anxiety 08/09/20 02/06/23 aripiprazole 2 mg tablet 2 mg PO BEDTIME 08/09/20 02/06/23 cholecalciferol (vitamin D3) 25 25 mcg PO BID 08/09/20 02/06/23 mcg (1,000 unit) tablet hydroxyzine HCl 50 mg tablet 50 mg PO TID PRN Anxiety 08/09/20 02/06/23 linaclotide 145 mcg capsule 145 mcg PO DAILY 08/09/20 02/06/23 mirtazapine 45 mg tablet 45 mg PO BEDTIME 08/09/20 02/06/23 multivitamin 1 cap PO DAILY 08/09/20 02/06/23 omeprazole 20 mg tablet,delayed 20 mg PO DAILY 08/09/20 02/06/23 release sertraline 50 mg tablet 50 mg PO BEDTIME 08/09/20 02/06/23 Previous Rx's Medication Instructions Recorded escitalopram oxalate 10 mg tablet 10 mg PO DAILY #30 tabs 09/06/20 acetaminophen 325 mg capsule 325 mg PO QID PRN fever or pain 09/16/20 #30 caps aspirin 81 mg tablet,delayed 81 mg PO BEDTIME #90 tabs 09/28/20 release metoprolol succinate 50 mg 50 mg PO DAILY #90 tabs 09/28/20 tablet,extended release 24 hr menthol 0.44 %-zinc oxide 20.6 % 1 appl topical QID PRN skin 12/13/20 topical ointment (Calmoseptine) irritation #113 grams magnesium citrate 150 ml PO DAILY PRN constipation 12/14/20 #296 mL diphenhydramine HCl 25 mg capsule 25 mg PO BEDTIME insomnia #7 caps 12/25/20 (Benadryl) melatonin 10 mg tablet,extended 10 mg PO .nightly #5 tabs 01/07/21 release cefdinir 300 mg capsule 300 mg PO BID Otitis media 10 days 04/14/21 #20 caps ondansetron HCl 4 mg tablet 4 mg PO Q8H PRN nausea and 04/14/21 (Zofran) vomiting #14 tabs metoprolol succinate 50 mg 50 mg PO DAILY #14 tabs 05/22/21 tablet,extended release 24 hr ciprofloxacin 0.3 %-dexamethasone 4 drp otic (ears) BID 7 days 05/26/21 0.1 % ear drops,suspension (Ciprodex) polyethylene glycol 3350 17 17 g PO DAILY PRN constipation 07/31/21 gram/dose oral powder (Miralax) #238 grams hydrocortisone acetate 25 mg 25 mg MT BID #12 ea 08/01/21 rectal suppository (Anucort-HC) cefuroxime axetil 500 mg tablet 500 mg PO BID 7 days #14 tabs 09/01/21 meclizine 25 mg tablet 25 mg PO TID PRN dizziness #10 tabs 09/01/21 zolpidem 5 mg tablet (Ambien) 5 mg PO BEDTIME PRN sleep #2 tabs 10/29/21 zolpidem 5 mg tablet (Ambien) 5 mg PO BEDTIME PRN sleep #2 tabs 10/29/21 levofloxacin 500 mg tablet 500 mg PO DAILY 7 days #7 tabs 07/23/22 levofloxacin 500 mg tablet 500 mg PO DAILY #6 tabs 08/25/22 ofloxacin 0.3 % ear drops 10 drp otic (ears) DAILY 7 days #5 08/25/22 mL hydrocortisone 2.5 % topical cream 1 appl MT BEDTIME PRN hemorrhoids 09/20/22 with perineal applicator #30 grams docusate sodium 100 mg capsule 100 mg PO BID PRN Constipation #14 12/06/22 (Colace) caps phenylephrine 0.25 %-mineral oil 1 appl MT BID PRN hemorrhoids #56 12/06/22 14 %-petrolatm 74.9 % rectal grams ointment (Hemorrhoidal(phenyleph-min oil-petrolat)) polyethylene glycol 3350 17 17 g PO BID #119 grams 12/06/22 gram/dose oral powder (Miralax) cefuroxime axetil 500 mg tablet 500 mg PO BID 10 days #20 tabs 12/16/22 alprazolam 0.25 mg tablet 0.25 mg PO QID #7 tabs 01/04/23 ofloxacin 0.3 % ear drops 5 drp otic (ear) left BID 7 days 01/06/23 #5 mL alprazolam 0.25 mg tablet 0.25 mg PO TID PRN anxiety #7 tabs 01/11/23 alprazolam 0.25 mg tablet 0.25 mg PO TID PRN anxiety #3 tabs 02/02/23 alprazolam 0.5 mg tablet (Xanax) 0.5 mg PO BEDTIME PRN anxiety #7 04/20/23 tabs metoprolol succinate 50 mg 50 mg PO DAILY #7 tabs 05/18/23 tablet,extended release 24 hr lisinopril 40 mg tablet 40 mg PO QPM #90 tabs 05/22/23 ondansetron 4 mg disintegrating 4 mg PO Q8H PRN nausea and 07/06/23 tablet vomiting #10 tabs hydrocortisone 1 % topical cream 1 appl topical BID PRN rash #28.4 08/03/23 grams Allergies Allergy/AdvReac Type Severity Reaction Status Date / Time penicillin G [Penicillin G] Allergy Severe ITCHY/RASH Verified 08/06/23 08:43 Sulfa (Sulfonamide Allergy Severe ITCHY,RASH, Verified 08/06/23 08:43 Antibiotics) rash [Sulfa (Sulfonamides)] trimethoprim [From Bactrim] Allergy Severe HIVES Verified 08/06/23 08:43 penicillin V Allergy Unknown rash Verified 08/06/23 08:43 sulfacetamide Allergy Unknown unknown Verified 08/06/23 08:43 [From Sulfacet-R] sulfur [From Sulfacet-R] Allergy Unknown unknown Verified 08/06/23 08:43 [facility] Past Medical History Medical History Bleeding hemorrhoids Essential hypertension PVC (premature ventricular contraction) PAC (premature atrial contraction) SVT (supraventricular tachycardia) Chronic constipation High blood pressure Vertigo Dementia Arthritis Anxiety Surgical History No pertinent past surgical history Social History Social History Alcohol intake: never Patient Tobacco Use Status: Never used Tobacco Smoked in Last 30 Days: No Use of substances other than those prescribed or required for medical reasons: No Advance Directives: No Advance Directives Information Provided: Yes Physical Exam ED Vital Signs: Vital Signs - 24 hr 08/16/23 05:31 Temperature 98.4 F Pulse Rate 88 Respiratory Rate 16 Blood Pressure 145/77 H Pulse Oximetry 100 Oxygen Delivery Method Room Air BMI result Body Mass Index 26.5 Discharge Plan Discharge Prescriptions: No Action escitalopram oxalate 10 mg tablet 10 mg PO DAILY Qty: 30 1RF metoprolol succinate 50 mg tablet extended release 24 hr 50 mg PO DAILY Qty: 90 2RF aspirin 81 mg tablet,delayed release (DR/EC) 81 mg PO BEDTIME Qty: 90 2RF polyethylene glycol 3350 [Miralax] 17 gram/dose powder 17 g PO DAILY PRN (Reason: constipation) Qty: 238 0RF lisinopril 40 mg tablet 40 mg PO QPM Qty: 90 0RF Rx Instructions: Please call and schedule cardiology appt acetaminophen 325 mg capsule 325 mg PO QID PRN (Reason: fever or pain) Qty: 30 0RF melatonin 10 mg tablet extended release 10 mg PO .nightly Qty: 5 0RF metoprolol succinate 50 mg tablet extended release 24 hr 50 mg PO DAILY Qty: 14 0RF ciprofloxacin-dexamethasone [Ciprodex] 0.3-0.1 % drops,suspension 4 drp otic (ears) BID 7 Days 0RF alprazolam 0.5 mg Tablet 0.5 mg PO TID PRN (Reason: Anxiety) hydroxyzine HCl 50 mg Tablet 50 mg PO TID PRN (Reason: Anxiety) mirtazapine 45 mg Tablet 45 mg PO BEDTIME multivitamin Capsule 1 cap PO DAILY sertraline 50 mg Tablet 50 mg PO BEDTIME aripiprazole 2 mg Tablet 2 mg PO BEDTIME cholecalciferol (vitamin D3) 25 mcg (1,000 unit) Tablet 25 mcg PO BID omeprazole 20 mg Tablet,Delayed Release (Dr/Ec) 20 mg PO DAILY linaclotide 145 mcg Capsule 145 mcg PO DAILY diphenhydramine HCl [Benadryl] 25 mg capsule 25 mg PO BEDTIME Qty: 7 0RF cefdinir 300 mg capsule 300 mg PO BID 10 Days Qty: 20 0RF ondansetron HCl [Zofran] 4 mg tablet 4 mg PO Q8H PRN (Reason: nausea and vomiting) Qty: 14 0RF cefuroxime axetil 500 mg tablet 500 mg PO BID 7 Days Qty: 14 0RF meclizine 25 mg tablet 25 mg PO TID PRN (Reason: dizziness) Qty: 10 0RF levofloxacin 500 mg tablet 500 mg PO DAILY 7 Days Qty: 7 0RF cefuroxime axetil 500 mg tablet 500 mg PO BID 10 Days Qty: 20 0RF alprazolam 0.25 mg tablet 0.25 mg PO QID Qty: 7 0RF levofloxacin 500 mg tablet 500 mg PO DAILY Qty: 6 0RF Rx Instructions: start on 08/26 ofloxacin 0.3 % drops 10 drp otic (ears) DAILY 7 Days Qty: 5 0RF Rx Instructions: can substitute eye drops if necessary hydrocortisone 2.5 % cream with perineal applicator 1 appl MT BEDTIME PRN (Reason: hemorrhoids) Qty: 30 0RF Hemorrhoidal(PE-min oil-emma) 0.25-14-74.9 % ointment 1 appl MT BID PRN (Reason: hemorrhoids) Qty: 56 0RF polyethylene glycol 3350 [Miralax] 17 gram/dose powder 17 g PO BID Qty: 119 0RF docusate sodium [Colace] 100 mg capsule 100 mg PO BID PRN (Reason: Constipation) Qty: 14 0RF ofloxacin 0.3 % drops 5 drp otic (ear) left BID 7 Days Qty: 5 0RF alprazolam 0.25 mg tablet 0.25 mg PO TID PRN (Reason: anxiety) Qty: 7 0RF alprazolam [Xanax] 0.5 mg tablet 0.5 mg PO BEDTIME PRN (Reason: anxiety) Qty: 7 0RF metoprolol succinate 50 mg tablet extended release 24 hr 50 mg PO DAILY Qty: 7 0RF alprazolam 0.25 mg tablet 0.25 mg PO TID PRN (Reason: anxiety) Qty: 3 0RF ondansetron 4 mg tablet,disintegrating 4 mg PO Q8H PRN (Reason: nausea and vomiting) Qty: 10 0RF hydrocortisone 1 % cream 1 appl topical BID PRN (Reason: rash) Qty: 28.4 0RF Calmoseptine 0.44-20.6 % ointment 1 appl topical QID PRN (Reason: skin irritation) Qty: 113 0RF magnesium citrate Solution 150 ml PO DAILY PRN (Reason: constipation) Qty: 296 0RF Rx Instructions: take only when needed for constipation hydrocortisone acetate [Anucort-HC] 25 mg suppository 25 mg MT BID Qty: 12 3RF zolpidem [Ambien] 5 mg tablet 5 mg PO BEDTIME PRN (Reason: sleep) Qty: 2 0RF zolpidem [Ambien] 5 mg tablet 5 mg PO BEDTIME PRN (Reason: sleep) Qty: 2 0RF
--- NOTE | 2023-08-16 06:59 | PC.NURSE ---
while in ER pt had several bowel movements; states that she was feeling much better. also rpts that she has an appt with her psychiatrist to address her medicines for anxiety.
--- NOTE | 2023-08-16 07:02 | PC.NURSE ---
provider unable to make patient contact prior to pt leaving ER. pt reports to jamel rn able to move bowels and feeling better. pt lwt. clinical coordinator made aware
== END 2023-08-16 07:05 | disposition left against medical advice (07) ==
PROVIDERS: Emergency Provider Emergency Medicine Emergency Medical Services
DX: K59.00 Constipation, unspecified (principal); F41.9 Anxiety disorder, unspecified
CPT/HCPCS: 99281; 99284

== ENCOUNTER 2023-08-17 05:01 | Emergency (ER) | payer OTHER, SELFPAY ==
[2023-08-17 05:09] VITALS: BP 132/75; BP 150/70; PULSE 81; PULSE 88; RESP 18; TEMP 36.8; O2SAT 100; O2SAT 99; BMI 27.0
[2023-08-17 05:14] VITALS: PULSE 86
--- NOTE | 2023-08-17 05:21 | ED.GENADULT ---
HPI - General Adult General Chief complaint: General Medical Stated complaint: abd pain Time Seen by Provider: 08/17/23 05:09 Source: patient Mode of arrival: ambulatory Limitations: no limitations History of Present Illness HPI narrative: Patient comes emergency room complaining of constipation, hemorrhoids and anxiety. Patient states that she is very anxious because she does not get along with her daughter. They had a fight over the phone today. Also, patient states that she has been constipated for couple of days, takes Linzess. Patient denies nausea vomiting diarrhea, no abdominal pain. Patient denies SI or HI Related Data Home Medications Medication Instructions Recorded Confirmed alprazolam 0.5 mg tablet 0.5 mg PO TID PRN Anxiety 08/09/20 02/06/23 aripiprazole 2 mg tablet 2 mg PO BEDTIME 08/09/20 02/06/23 cholecalciferol (vitamin D3) 25 25 mcg PO BID 08/09/20 02/06/23 mcg (1,000 unit) tablet hydroxyzine HCl 50 mg tablet 50 mg PO TID PRN Anxiety 08/09/20 02/06/23 linaclotide 145 mcg capsule 145 mcg PO DAILY 08/09/20 02/06/23 mirtazapine 45 mg tablet 45 mg PO BEDTIME 08/09/20 02/06/23 multivitamin 1 cap PO DAILY 08/09/20 02/06/23 omeprazole 20 mg tablet,delayed 20 mg PO DAILY 08/09/20 02/06/23 release sertraline 50 mg tablet 50 mg PO BEDTIME 08/09/20 02/06/23 Previous Rx's Medication Instructions Recorded escitalopram oxalate 10 mg tablet 10 mg PO DAILY #30 tabs 09/06/20 acetaminophen 325 mg capsule 325 mg PO QID PRN fever or pain 09/16/20 #30 caps aspirin 81 mg tablet,delayed 81 mg PO BEDTIME #90 tabs 09/28/20 release metoprolol succinate 50 mg 50 mg PO DAILY #90 tabs 09/28/20 tablet,extended release 24 hr menthol 0.44 %-zinc oxide 20.6 % 1 appl topical QID PRN skin 12/13/20 topical ointment (Calmoseptine) irritation #113 grams magnesium citrate 150 ml PO DAILY PRN constipation 12/14/20 #296 mL diphenhydramine HCl 25 mg capsule 25 mg PO BEDTIME insomnia #7 caps 12/25/20 (Benadryl) melatonin 10 mg tablet,extended 10 mg PO .nightly #5 tabs 01/07/21 release cefdinir 300 mg capsule 300 mg PO BID Otitis media 10 days 04/14/21 #20 caps ondansetron HCl 4 mg tablet 4 mg PO Q8H PRN nausea and 04/14/21 (Zofran) vomiting #14 tabs metoprolol succinate 50 mg 50 mg PO DAILY #14 tabs 05/22/21 tablet,extended release 24 hr ciprofloxacin 0.3 %-dexamethasone 4 drp otic (ears) BID 7 days 05/26/21 0.1 % ear drops,suspension (Ciprodex) polyethylene glycol 3350 17 17 g PO DAILY PRN constipation 07/31/21 gram/dose oral powder (Miralax) #238 grams hydrocortisone acetate 25 mg 25 mg MO BID #12 ea 08/01/21 rectal suppository (Anucort-HC) cefuroxime axetil 500 mg tablet 500 mg PO BID 7 days #14 tabs 09/01/21 meclizine 25 mg tablet 25 mg PO TID PRN dizziness #10 tabs 09/01/21 zolpidem 5 mg tablet (Ambien) 5 mg PO BEDTIME PRN sleep #2 tabs 10/29/21 zolpidem 5 mg tablet (Ambien) 5 mg PO BEDTIME PRN sleep #2 tabs 10/29/21 levofloxacin 500 mg tablet 500 mg PO DAILY 7 days #7 tabs 07/23/22 levofloxacin 500 mg tablet 500 mg PO DAILY #6 tabs 08/25/22 ofloxacin 0.3 % ear drops 10 drp otic (ears) DAILY 7 days #5 08/25/22 mL hydrocortisone 2.5 % topical cream 1 appl MO BEDTIME PRN hemorrhoids 09/20/22 with perineal applicator #30 grams docusate sodium 100 mg capsule 100 mg PO BID PRN Constipation #14 12/06/22 (Colace) caps phenylephrine 0.25 %-mineral oil 1 appl MO BID PRN hemorrhoids #56 12/06/22 14 %-petrolatm 74.9 % rectal grams ointment (Hemorrhoidal(phenyleph-min oil-petrolat)) polyethylene glycol 3350 17 17 g PO BID #119 grams 12/06/22 gram/dose oral powder (Miralax) cefuroxime axetil 500 mg tablet 500 mg PO BID 10 days #20 tabs 12/16/22 alprazolam 0.25 mg tablet 0.25 mg PO QID #7 tabs 01/04/23 ofloxacin 0.3 % ear drops 5 drp otic (ear) left BID 7 days 01/06/23 #5 mL alprazolam 0.25 mg tablet 0.25 mg PO TID PRN anxiety #7 tabs 01/11/23 alprazolam 0.25 mg tablet 0.25 mg PO TID PRN anxiety #3 tabs 02/02/23 alprazolam 0.5 mg tablet (Xanax) 0.5 mg PO BEDTIME PRN anxiety #7 04/20/23 tabs metoprolol succinate 50 mg 50 mg PO DAILY #7 tabs 05/18/23 tablet,extended release 24 hr lisinopril 40 mg tablet 40 mg PO QPM #90 tabs 05/22/23 ondansetron 4 mg disintegrating 4 mg PO Q8H PRN nausea and 07/06/23 tablet vomiting #10 tabs hydrocortisone 1 % topical cream 1 appl topical BID PRN rash #28.4 08/03/23 grams phenylephrine 0.25 %-mineral oil 1 appl MO BID PRN hemorrhoids #57 08/17/23 14 %-petrolatm 74.9 % rectal grams ointment (Preparation H) polyethylene glycol 3350 17 17 g PO BID #119 grams 08/17/23 gram/dose oral powder (Miralax) Allergies Allergy/AdvReac Type Severity Reaction Status Date / Time penicillin G [Penicillin G] Allergy Severe ITCHY/RASH Verified 08/17/23 05:14 Sulfa (Sulfonamide Allergy Severe ITCHY,RASH, Verified 08/17/23 05:14 Antibiotics) rash [Sulfa (Sulfonamides)] trimethoprim [From Bactrim] Allergy Severe HIVES Verified 08/17/23 05:14 penicillin V Allergy Unknown rash Verified 08/17/23 05:14 sulfacetamide Allergy Unknown unknown Verified 08/17/23 05:14 [From Sulfacet-R] sulfur [From Sulfacet-R] Allergy Unknown unknown Verified 08/17/23 05:14 Review of Systems Review of Systems: Constitutional : No Weight loss, No Fever, No Chills, No Night Sweats, No Fatigue, No Malaise ENT/Mouth : No Hearing loss, No Ear Pain, No Nasal Congestion, No Sinus Pain, No Hoarseness, No sore throat, No Rhinorrhea, No Swallowing Difficulty Eyes: No Eye Pain, No Swelling, No Redness, No Foreign Body, No Discharge, No Vision Changes Cardiovascular : No Chest Pain, No SOB, No Dyspnea on Exertion, No Orthopnea, No Edema, No Palpitations Respiratory : No Cough, No Sputum, No Wheezing, No Smoke Exposure, No Dyspnea Gastrointestinal : No Nausea, No Vomiting, No Diarrhea, complaining of Constipation, No abdominal Pain, complaining of mildly uncomfortable hemorrhoids Genitourinary : no irregular bleeding, No Dysuria, No Urinary Frequency, No Hematuria, No Urinary Incontinence, No Urgency, No Flank Pain, No Urinary Flow Changes, No Hesitancy Musculoskeletal : No joint pain, No Myalgias, No Joint Swelling Skin : No Skin Lesions, No rash Neuro : No Weakness, No Numbness, No Paresthesias, No Loss of Consciousness, No Dizziness, No Headache Psych : Complaining of anxiety, No Depression, No SI/HI/AH/VH, No Social Issues, Heme/Lymph: No Bruising, No Bleeding,No Lymphadenopathy Endocrine : No Polyuria, No Polydipsia, No Temperature Intolerance PMFSH Past Medical History Medical History Bleeding hemorrhoids Essential hypertension PVC (premature ventricular contraction) PAC (premature atrial contraction) SVT (supraventricular tachycardia) Chronic constipation High blood pressure Vertigo Dementia Arthritis Anxiety Surgical History No pertinent past surgical history Social History Social History Alcohol intake: never Patient Tobacco Use Status: Never used Tobacco Smoked in Last 30 Days: No Use of substances other than those prescribed or required for medical reasons: No Physical Exam ED Vital Signs: Vital Signs - 24 hr 08/17/23 05:09 08/17/23 05:14 Temperature 98.3 F Pulse Rate 81 86 Respiratory Rate 18 Blood Pressure 132/75 Pulse Oximetry 100 Oxygen Delivery Method Room Air BMI result Body Mass Index 27.0 Const Other: Appearance: Alert. Oriented X3. No acute distress. Well-appearing Eyes: Pupils equal, round and reactive to light. ENT: Pharynx normal. Neck: Normal inspection. Neck supple. No lymph nodes noted. No crepitus CVS: Normal heart rate and rhythm. Pulses normal. Normal S1 and S2 Respiratory: No respiratory distress. Breath sounds normal. No Wheezing. No rales Abdomen: Soft and nontender. No rigidity. No distention. Skin: Skin warm and dry. Normal skin color. Normal skin turgor. Extremities: No lower extremity edema. No Lacerations. No Rash Neuro: Oriented X 3. No motor deficit. No sensory deficit. Moving all extremities. No slurred speech. CN 2 through 12 grossly intact Psych: calm, cooperative, anxious, tearful Medical Decision Making Medical Decision Making MDM Narrative: -patient anxious, requesting 1 dose of Klonopin. -discussed with the patient she has bleeding hemorrhoids, states that she has been seen multiple times for surgery in the past for bleeding hemorrhoids, states that she has an appointment pending with Dr. Khan Differential Diagnosis Differential Diagnoses: The differential diagnosis associated with the presentation includes (Anxiety, depression, hemorrhoids) Discharge Plan Discharge Clinical Impression: Anxiety, Hemorrhoids, Constipation Patient Disposition: Home, Self-Care Instructions: Constipation (ED), Anxiety (ED) Additional Instructions: Please follow-up with your primary care physician tomorrow. If you have any worsening or new symptoms, please return to the emergency room or call 911 Prescriptions: New Preparation H 0.25-14-74.9 % ointment 1 appl MO BID PRN (Reason: hemorrhoids) Qty: 57 0RF polyethylene glycol 3350 [Miralax] 17 gram/dose powder 17 g PO BID Qty: 119 0RF No Action escitalopram oxalate 10 mg tablet 10 mg PO DAILY Qty: 30 1RF metoprolol succinate 50 mg tablet extended release 24 hr 50 mg PO DAILY Qty: 90 2RF aspirin 81 mg tablet,delayed release (DR/EC) 81 mg PO BEDTIME Qty: 90 2RF polyethylene glycol 3350 [Miralax] 17 gram/dose powder 17 g PO DAILY PRN (Reason: constipation) Qty: 238 0RF lisinopril 40 mg tablet 40 mg PO QPM Qty: 90 0RF Rx Instructions: Please call and schedule cardiology appt acetaminophen 325 mg capsule 325 mg PO QID PRN (Reason: fever or pain) Qty: 30 0RF melatonin 10 mg tablet extended release 10 mg PO .nightly Qty: 5 0RF metoprolol succinate 50 mg tablet extended release 24 hr 50 mg PO DAILY Qty: 14 0RF ciprofloxacin-dexamethasone [Ciprodex] 0.3-0.1 % drops,suspension 4 drp otic (ears) BID 7 Days 0RF alprazolam 0.5 mg Tablet 0.5 mg PO TID PRN (Reason: Anxiety) hydroxyzine HCl 50 mg Tablet 50 mg PO TID PRN (Reason: Anxiety) mirtazapine 45 mg Tablet 45 mg PO BEDTIME multivitamin Capsule 1 cap PO DAILY sertraline 50 mg Tablet 50 mg PO BEDTIME aripiprazole 2 mg Tablet 2 mg PO BEDTIME cholecalciferol (vitamin D3) 25 mcg (1,000 unit) Tablet 25 mcg PO BID omeprazole 20 mg Tablet,Delayed Release (Dr/Ec) 20 mg PO DAILY linaclotide 145 mcg Capsule 145 mcg PO DAILY diphenhydramine HCl [Benadryl] 25 mg capsule 25 mg PO BEDTIME Qty: 7 0RF cefdinir 300 mg capsule 300 mg PO BID 10 Days Qty: 20 0RF ondansetron HCl [Zofran] 4 mg tablet 4 mg PO Q8H PRN (Reason: nausea and vomiting) Qty: 14 0RF cefuroxime axetil 500 mg tablet 500 mg PO BID 7 Days Qty: 14 0RF meclizine 25 mg tablet 25 mg PO TID PRN (Reason: dizziness) Qty: 10 0RF levofloxacin 500 mg tablet 500 mg PO DAILY 7 Days Qty: 7 0RF cefuroxime axetil 500 mg tablet 500 mg PO BID 10 Days Qty: 20 0RF alprazolam 0.25 mg tablet 0.25 mg PO QID Qty: 7 0RF levofloxacin 500 mg tablet 500 mg PO DAILY Qty: 6 0RF Rx Instructions: start on 08/26 ofloxacin 0.3 % drops 10 drp otic (ears) DAILY 7 Days Qty: 5 0RF Rx Instructions: can substitute eye drops if necessary hydrocortisone 2.5 % cream with perineal applicator 1 appl MO BEDTIME PRN (Reason: hemorrhoids) Qty: 30 0RF Hemorrhoidal(PE-min oil-emma) 0.25-14-74.9 % ointment 1 appl MO BID PRN (Reason: hemorrhoids) Qty: 56 0RF polyethylene glycol 3350 [Miralax] 17 gram/dose powder 17 g PO BID Qty: 119 0RF docusate sodium [Colace] 100 mg capsule 100 mg PO BID PRN (Reason: Constipation) Qty: 14 0RF ofloxacin 0.3 % drops 5 drp otic (ear) left BID 7 Days Qty: 5 0RF alprazolam 0.25 mg tablet 0.25 mg PO TID PRN (Reason: anxiety) Qty: 7 0RF alprazolam [Xanax] 0.5 mg tablet 0.5 mg PO BEDTIME PRN (Reason: anxiety) Qty: 7 0RF metoprolol succinate 50 mg tablet extended release 24 hr 50 mg PO DAILY Qty: 7 0RF alprazolam 0.25 mg tablet 0.25 mg PO TID PRN (Reason: anxiety) Qty: 3 0RF ondansetron 4 mg tablet,disintegrating 4 mg PO Q8H PRN (Reason: nausea and vomiting) Qty: 10 0RF hydrocortisone 1 % cream 1 appl topical BID PRN (Reason: rash) Qty: 28.4 0RF Calmoseptine 0.44-20.6 % ointment 1 appl topical QID PRN (Reason: skin irritation) Qty: 113 0RF magnesium citrate Solution 150 ml PO DAILY PRN (Reason: constipation) Qty: 296 0RF Rx Instructions: take only when needed for constipation hydrocortisone acetate [Anucort-HC] 25 mg suppository 25 mg MO BID Qty: 12 3RF zolpidem [Ambien] 5 mg tablet 5 mg PO BEDTIME PRN (Reason: sleep) Qty: 2 0RF zolpidem [Ambien] 5 mg tablet 5 mg PO BEDTIME PRN (Reason: sleep) Qty: 2 0RF
--- NOTE | 2023-08-17 05:23 | PC.NURSE ---
pt BIBA from home. a&ox4, respirations even and unlabored. pt reports the inability to move her bowels for 2 days, reports hemorrhoids and noted blood on toilet paper when wiping after attempting to move bowels. pt abdomen soft non tender to touch with hypoactive bowel sounds in all 4 quadrants. pt normal sinus on tele 78-80. dr. tracy at bedside discussing pt care.
== END 2023-08-17 05:47 | disposition home or self-care (01) ==
LOC: HO.ED 05:32
PROVIDERS: Emergency Provider Emergency Medicine; PCP Internal Medicine Geriatric Medicine
DX: K64.9 Unspecified hemorrhoids (principal); K59.00 Constipation, unspecified; F41.1 Generalized anxiety disorder; F43.0 Acute stress reaction; Z79.899 Other long term (current) drug therapy
CPT/HCPCS: 99283; 99284

== ENCOUNTER 2023-08-18 02:58 | Emergency (ER) | payer OTHER, SELFPAY ==
[2023-08-18 03:03] VITALS: BP 146/74; PULSE 72; O2SAT 100
[2023-08-18 04:38] VITALS: BP 148/81; PULSE 80; RESP 19; TEMP 36.9; O2SAT 99; BMI 29.9
--- NOTE | 2023-08-18 06:22 | ED.ANXIETY ---
HPI - Anxiety General Chief Complaint: Anxiety Stated Complaint: BP TOO HIGH Time Seen by Provider: 08/18/23 05:19 Source: patient Mode of arrival: ambulatory Limitations: no limitations History of Present Illness HPI narrative: This is a 77-year-old female, with a past medical history of hypertension, anxiety with panic attacks on chronic benzodiazepines, SVT, hemorrhoids, vertigo dementia, presenting to the emergency department for evaluation of elevated blood pressure and anxiety which is a typical presentation for the patient to the ED. patient ran out of her prescription and supposed to receive a new prescription from her PCP tomorrow. Related Data Home Medications Medication Instructions Recorded Confirmed alprazolam 0.5 mg tablet 0.5 mg PO TID PRN Anxiety 08/09/20 02/06/23 aripiprazole 2 mg tablet 2 mg PO BEDTIME 08/09/20 02/06/23 cholecalciferol (vitamin D3) 25 25 mcg PO BID 08/09/20 02/06/23 mcg (1,000 unit) tablet hydroxyzine HCl 50 mg tablet 50 mg PO TID PRN Anxiety 08/09/20 02/06/23 linaclotide 145 mcg capsule 145 mcg PO DAILY 08/09/20 02/06/23 mirtazapine 45 mg tablet 45 mg PO BEDTIME 08/09/20 02/06/23 multivitamin 1 cap PO DAILY 08/09/20 02/06/23 omeprazole 20 mg tablet,delayed 20 mg PO DAILY 08/09/20 02/06/23 release sertraline 50 mg tablet 50 mg PO BEDTIME 08/09/20 02/06/23 Previous Rx's Medication Instructions Recorded escitalopram oxalate 10 mg tablet 10 mg PO DAILY #30 tabs 09/06/20 acetaminophen 325 mg capsule 325 mg PO QID PRN fever or pain 09/16/20 #30 caps aspirin 81 mg tablet,delayed 81 mg PO BEDTIME #90 tabs 09/28/20 release metoprolol succinate 50 mg 50 mg PO DAILY #90 tabs 09/28/20 tablet,extended release 24 hr menthol 0.44 %-zinc oxide 20.6 % 1 appl topical QID PRN skin 12/13/20 topical ointment (Calmoseptine) irritation #113 grams magnesium citrate 150 ml PO DAILY PRN constipation 12/14/20 #296 mL diphenhydramine HCl 25 mg capsule 25 mg PO BEDTIME insomnia #7 caps 12/25/20 (Benadryl) melatonin 10 mg tablet,extended 10 mg PO .nightly #5 tabs 01/07/21 release cefdinir 300 mg capsule 300 mg PO BID Otitis media 10 days 04/14/21 #20 caps ondansetron HCl 4 mg tablet 4 mg PO Q8H PRN nausea and 04/14/21 (Zofran) vomiting #14 tabs metoprolol succinate 50 mg 50 mg PO DAILY #14 tabs 05/22/21 tablet,extended release 24 hr ciprofloxacin 0.3 %-dexamethasone 4 drp otic (ears) BID 7 days 05/26/21 0.1 % ear drops,suspension (Ciprodex) polyethylene glycol 3350 17 17 g PO DAILY PRN constipation 07/31/21 gram/dose oral powder (Miralax) #238 grams hydrocortisone acetate 25 mg 25 mg [place] BID #12 ea 08/01/21 rectal suppository (Anucort-HC) cefuroxime axetil 500 mg tablet 500 mg PO BID 7 days #14 tabs 09/01/21 meclizine 25 mg tablet 25 mg PO TID PRN dizziness #10 tabs 09/01/21 zolpidem 5 mg tablet (Ambien) 5 mg PO BEDTIME PRN sleep #2 tabs 10/29/21 zolpidem 5 mg tablet (Ambien) 5 mg PO BEDTIME PRN sleep #2 tabs 10/29/21 levofloxacin 500 mg tablet 500 mg PO DAILY 7 days #7 tabs 07/23/22 levofloxacin 500 mg tablet 500 mg PO DAILY #6 tabs 08/25/22 ofloxacin 0.3 % ear drops 10 drp otic (ears) DAILY 7 days #5 08/25/22 mL hydrocortisone 2.5 % topical cream 1 appl [place] BEDTIME PRN hemorrhoids 09/20/22 with perineal applicator #30 grams docusate sodium 100 mg capsule 100 mg PO BID PRN Constipation #14 12/06/22 (Colace) caps phenylephrine 0.25 %-mineral oil 1 appl [place] BID PRN hemorrhoids #56 12/06/22 14 %-petrolatm 74.9 % rectal grams ointment (Hemorrhoidal(phenyleph-min oil-petrolat)) polyethylene glycol 3350 17 17 g PO BID #119 grams 12/06/22 gram/dose oral powder (Miralax) cefuroxime axetil 500 mg tablet 500 mg PO BID 10 days #20 tabs 12/16/22 alprazolam 0.25 mg tablet 0.25 mg PO QID #7 tabs 01/04/23 ofloxacin 0.3 % ear drops 5 drp otic (ear) left BID 7 days 01/06/23 #5 mL alprazolam 0.25 mg tablet 0.25 mg PO TID PRN anxiety #7 tabs 01/11/23 alprazolam 0.25 mg tablet 0.25 mg PO TID PRN anxiety #3 tabs 02/02/23 alprazolam 0.5 mg tablet (Xanax) 0.5 mg PO BEDTIME PRN anxiety #7 04/20/23 tabs metoprolol succinate 50 mg 50 mg PO DAILY #7 tabs 05/18/23 tablet,extended release 24 hr lisinopril 40 mg tablet 40 mg PO QPM #90 tabs 05/22/23 ondansetron 4 mg disintegrating 4 mg PO Q8H PRN nausea and 07/06/23 tablet vomiting #10 tabs hydrocortisone 1 % topical cream 1 appl topical BID PRN rash #28.4 08/03/23 grams phenylephrine 0.25 %-mineral oil 1 appl [place] BID PRN hemorrhoids #57 08/17/23 14 %-petrolatm 74.9 % rectal grams ointment (Preparation H) polyethylene glycol 3350 17 17 g PO BID #119 grams 08/17/23 gram/dose oral powder (Miralax) Allergies Allergy/AdvReac Type Severity Reaction Status Date / Time penicillin G [Penicillin G] Allergy Severe ITCHY/RASH Verified 08/17/23 05:14 Sulfa (Sulfonamide Allergy Severe ITCHY,RASH, Verified 08/17/23 05:14 Antibiotics) rash [Sulfa (Sulfonamides)] trimethoprim [From Bactrim] Allergy Severe HIVES Verified 08/17/23 05:14 penicillin V Allergy Unknown rash Verified 08/17/23 05:14 sulfacetamide Allergy Unknown unknown Verified 08/17/23 05:14 [From Sulfacet-R] sulfur [From Sulfacet-R] Allergy Unknown unknown Verified 08/17/23 05:14 Review of Systems Review of Systems: All other systems are reviewed and are negative Constitutional: Reports as per HPI and Reports no additional constitutional complaints Eyes: Reports as per HPI and Reports no additional eye complaints Reports system reviewed and no additional complaints, except as documented Cardiovascular: Reports as per HPI and Reports no additional cardiovascular complaints Respiratory: Reports as per HPI and Reports no additional respiratory complaints Gastrointestinal: Reports as per HPI and Reports no additional gastrointestinal complaints Genitourinary: Reports no additional female genitourinary complaints Musculoskeletal: Reports no additional musculoskeletal complaints Skin/Breast: Reports system reviewed and no additional complaints, except as docu Psychiatric: Reports no additional psychiatric complaints Endocrine: Reports no additional endocrine complaints Hematologic/Lymphatic: Reports no additional hematologic/lymphatic complaints Allergic/Immunologic: Reports no additional allergic/immunologic complaints Reports system reviewed and no additional complaints, except as documented and Reports Abnormal speech present [facility] Past Medical History Medical History Bleeding hemorrhoids Essential hypertension PVC (premature ventricular contraction) PAC (premature atrial contraction) SVT (supraventricular tachycardia) Chronic constipation High blood pressure Vertigo Dementia Arthritis Anxiety Surgical History No pertinent past surgical history Social History Social History Alcohol intake: never Patient Tobacco Use Status: Never used Tobacco Smoked in Last 30 Days: No Use of substances other than those prescribed or required for medical reasons: No Advance Directives: No Advance Directives Information Provided: Yes Physical Exam Vital Signs: Vital Signs: Last Vital Signs Temp 98.5 F 08/18/23 04:38 Pulse 80 08/18/23 04:38 Resp 19 08/18/23 04:38 BP 148/81 H 08/18/23 04:38 Pulse Ox 99 08/18/23 04:38 O2 Del Method Room Air 08/18/23 04:38 BMI result Body Mass Index 29.9 Vital signs have been reviewed and appear to be correct. Blood pressure elevated. Heart rate normal. Respiratory rate normal. Temperature normal. Oxygen saturation normal. Appearance: Anxious, Alert. Oriented X3. No acute distress. Head: Normal external exam. Normocephalic. Atraumatic. No Gomes signs noted. No raccoon eyes noted Eyes: PERRLA. EOMI. Conjunctiva and sclera normal. Eyelids normal. ENT: TM's Normal. Pharynx normal. Uvula midline. Moist mucous membranes. No trismus noted. No drooling noted. No muffled voice noted. Neck: Normal inspection. Neck supple. FROM. No adenopathy. Thyroid Normal. No meningeal signs. No neck mass noted. CVS: Normal heart rate and rhythm. Heart sound normal. No murmurs noted. Pulses normal throughout. Respiratory: No respiratory distress. Painless inspiration. Breath sounds normal. No wheezes/rales/rhonchi noted. Chest nontender. No accessory muscle usage noted or decreased air movement noted. Abdomen: Soft and nontender. Bowel sounds normal in all 4 quadrants. No distention noted. No organomegaly noted. No visible injury noted. Back: No CVA tenderness. Full range of motion noted. Skin: Skin warm and dry. Normal skin color. Normal skin turgor. No rashes/lesions/lacerations noted. Extremities: No lower extremity edema. Extremities exhibit normal range of motion. Extremities nontender. Neuro: Oriented X 3. Cranial nerve exam: II-XII are grossly intact No motor deficit. No sensory deficit. Reflexes normal. Course Course Course Narrative: Patient feels better after received Ativan in the emergency department stable vital signs, will discharg the patient to follow-up with PCP. Medications Administered Discontinued Medications Generic Name Dose Route Start Last Admin Trade Name Freq PRN Reason Stop Dose Admin Clonazepam 1 mg 08/18/23 05:19 08/18/23 05:26 Clonazepam 1 Mg Tablet PO 08/18/23 05:20 1 mg ONCE ONE Administration Medical Decision Making Differential Diagnosis Differential Diagnoses: The differential diagnosis associated with the presentation includes (Anxiety and panic attack, essential hypertension.) Admission/Observation Consideration of admission/observation: Escalation of care including admission/observation considered Chronic Conditions Patient?s care impacted by: Hypertension and Other (Anxiety) Discharge Plan Discharge Clinical Impression: Acute anxiety Patient Disposition: Home, Self-Care Instructions: Anxiety (ED) Prescriptions: No Action escitalopram oxalate 10 mg tablet 10 mg PO DAILY Qty: 30 1RF metoprolol succinate 50 mg tablet extended release 24 hr 50 mg PO DAILY Qty: 90 2RF aspirin 81 mg tablet,delayed release (DR/EC) 81 mg PO BEDTIME Qty: 90 2RF polyethylene glycol 3350 [Miralax] 17 gram/dose powder 17 g PO DAILY PRN (Reason: constipation) Qty: 238 0RF lisinopril 40 mg tablet 40 mg PO QPM Qty: 90 0RF Rx Instructions: Please call and schedule cardiology appt acetaminophen 325 mg capsule 325 mg PO QID PRN (Reason: fever or pain) Qty: 30 0RF melatonin 10 mg tablet extended release 10 mg PO .nightly Qty: 5 0RF metoprolol succinate 50 mg tablet extended release 24 hr 50 mg PO DAILY Qty: 14 0RF ciprofloxacin-dexamethasone [Ciprodex] 0.3-0.1 % drops,suspension 4 drp otic (ears) BID 7 Days 0RF alprazolam 0.5 mg Tablet 0.5 mg PO TID PRN (Reason: Anxiety) hydroxyzine HCl 50 mg Tablet 50 mg PO TID PRN (Reason: Anxiety) mirtazapine 45 mg Tablet 45 mg PO BEDTIME multivitamin Capsule 1 cap PO DAILY sertraline 50 mg Tablet 50 mg PO BEDTIME aripiprazole 2 mg Tablet 2 mg PO BEDTIME cholecalciferol (vitamin D3) 25 mcg (1,000 unit) Tablet 25 mcg PO BID omeprazole 20 mg Tablet,Delayed Release (Dr/Ec) 20 mg PO DAILY linaclotide 145 mcg Capsule 145 mcg PO DAILY diphenhydramine HCl [Benadryl] 25 mg capsule 25 mg PO BEDTIME Qty: 7 0RF cefdinir 300 mg capsule 300 mg PO BID 10 Days Qty: 20 0RF ondansetron HCl [Zofran] 4 mg tablet 4 mg PO Q8H PRN (Reason: nausea and vomiting) Qty: 14 0RF cefuroxime axetil 500 mg tablet 500 mg PO BID 7 Days Qty: 14 0RF meclizine 25 mg tablet 25 mg PO TID PRN (Reason: dizziness) Qty: 10 0RF levofloxacin 500 mg tablet 500 mg PO DAILY 7 Days Qty: 7 0RF cefuroxime axetil 500 mg tablet 500 mg PO BID 10 Days Qty: 20 0RF alprazolam 0.25 mg tablet 0.25 mg PO QID Qty: 7 0RF levofloxacin 500 mg tablet 500 mg PO DAILY Qty: 6 0RF Rx Instructions: start on 08/26 ofloxacin 0.3 % drops 10 drp otic (ears) DAILY 7 Days Qty: 5 0RF Rx Instructions: can substitute eye drops if necessary hydrocortisone 2.5 % cream with perineal applicator 1 appl [place] BEDTIME PRN (Reason: hemorrhoids) Qty: 30 0RF Hemorrhoidal(PE-min oil-emma) 0.25-14-74.9 % ointment 1 appl [place] BID PRN (Reason: hemorrhoids) Qty: 56 0RF polyethylene glycol 3350 [Miralax] 17 gram/dose powder 17 g PO BID Qty: 119 0RF docusate sodium [Colace] 100 mg capsule 100 mg PO BID PRN (Reason: Constipation) Qty: 14 0RF ofloxacin 0.3 % drops 5 drp otic (ear) left BID 7 Days Qty: 5 0RF alprazolam 0.25 mg tablet 0.25 mg PO TID PRN (Reason: anxiety) Qty: 7 0RF alprazolam [Xanax] 0.5 mg tablet 0.5 mg PO BEDTIME PRN (Reason: anxiety) Qty: 7 0RF metoprolol succinate 50 mg tablet extended release 24 hr 50 mg PO DAILY Qty: 7 0RF Preparation H 0.25-14-74.9 % ointment 1 appl [place] BID PRN (Reason: hemorrhoids) Qty: 57 0RF polyethylene glycol 3350 [Miralax] 17 gram/dose powder 17 g PO BID Qty: 119 0RF alprazolam 0.25 mg tablet 0.25 mg PO TID PRN (Reason: anxiety) Qty: 3 0RF ondansetron 4 mg tablet,disintegrating 4 mg PO Q8H PRN (Reason: nausea and vomiting) Qty: 10 0RF hydrocortisone 1 % cream 1 appl topical BID PRN (Reason: rash) Qty: 28.4 0RF Calmoseptine 0.44-20.6 % ointment 1 appl topical QID PRN (Reason: skin irritation) Qty: 113 0RF magnesium citrate Solution 150 ml PO DAILY PRN (Reason: constipation) Qty: 296 0RF Rx Instructions: take only when needed for constipation hydrocortisone acetate [Anucort-HC] 25 mg suppository 25 mg [place] BID Qty: 12 3RF zolpidem [Ambien] 5 mg tablet 5 mg PO BEDTIME PRN (Reason: sleep) Qty: 2 0RF zolpidem [Ambien] 5 mg tablet 5 mg PO BEDTIME PRN (Reason: sleep) Qty: 2 0RF Interventions: ED Discharge Assessment Last Done: 08/18/23 06:04 Discharge Date/Time: 08/18/23 06:07
== END 2023-08-18 06:07 | disposition home or self-care (01) ==
PROVIDERS: Emergency Provider Emergency Medicine
DX: F41.1 Generalized anxiety disorder (principal); F43.0 Acute stress reaction; Z79.899 Other long term (current) drug therapy
CPT/HCPCS: 99283

== ENCOUNTER 2023-08-18 10:31 | Emergency (ER) | payer OTHER, SELFPAY ==
[2023-08-18 10:35] VITALS: BP 158/80; PULSE 80; O2SAT 99
--- NOTE | 2023-08-18 10:36 | ED_ITS ---
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 Patient states that this morning she woke up startled. Patient denies any dizziness, lightheadedness, abdominal pain, nausea, vomiting, fever, chills, blurry vision, double vision, loss of vision, chest pain, difficulty breathing, shortness of breath, back pain, night sweats, pain with urination, increased urinary frequency, increased urinary urgency, blood in her urine or stool, syncope or a near syncopal episode, recent trauma or falls, bowel incontinence, bladder incontinence, bowel retention, bladder retention, or any other complaints at this time Relieving factors: none Exacerbating factors: none Associated symptoms: denies other symptoms Treatments prior to arrival: none Related Data Home Medications Medication Instructions Recorded Confirmed alprazolam 0.5 mg tablet 0.5 mg PO TID PRN Anxiety 08/09/20 02/06/23 aripiprazole 2 mg tablet 2 mg PO BEDTIME 08/09/20 02/06/23 cholecalciferol (vitamin D3) 25 25 mcg PO BID 08/09/20 02/06/23 mcg (1,000 unit) tablet hydroxyzine HCl 50 mg tablet 50 mg PO TID PRN Anxiety 08/09/20 02/06/23 linaclotide 145 mcg capsule 145 mcg PO DAILY 08/09/20 02/06/23 mirtazapine 45 mg tablet 45 mg PO BEDTIME 08/09/20 02/06/23 multivitamin 1 cap PO DAILY 08/09/20 02/06/23 omeprazole 20 mg tablet,delayed 20 mg PO DAILY 08/09/20 02/06/23 release sertraline 50 mg tablet 50 mg PO BEDTIME 08/09/20 02/06/23 Previous Rx's Medication Instructions Recorded escitalopram oxalate 10 mg tablet 10 mg PO DAILY #30 tabs 09/06/20 acetaminophen 325 mg capsule 325 mg PO QID PRN fever or pain 09/16/20 #30 caps aspirin 81 mg tablet,delayed 81 mg PO BEDTIME #90 tabs 09/28/20 release metoprolol succinate 50 mg 50 mg PO DAILY #90 tabs 09/28/20 tablet,extended release 24 hr menthol 0.44 %-zinc oxide 20.6 % 1 appl topical QID PRN skin 12/13/20 topical ointment (Calmoseptine) irritation #113 grams magnesium citrate 150 ml PO DAILY PRN constipation 12/14/20 #296 mL diphenhydramine HCl 25 mg capsule 25 mg PO BEDTIME insomnia #7 caps 12/25/20 (Benadryl) melatonin 10 mg tablet,extended 10 mg PO .nightly #5 tabs 01/07/21 release cefdinir 300 mg capsule 300 mg PO BID Otitis media 10 days 04/14/21 #20 caps ondansetron HCl 4 mg tablet 4 mg PO Q8H PRN nausea and 04/14/21 (Zofran) vomiting #14 tabs metoprolol succinate 50 mg 50 mg PO DAILY #14 tabs 05/22/21 tablet,extended release 24 hr ciprofloxacin 0.3 %-dexamethasone 4 drp otic (ears) BID 7 days 05/26/21 0.1 % ear drops,suspension (Ciprodex) polyethylene glycol 3350 17 17 g PO DAILY PRN constipation 07/31/21 gram/dose oral powder (Miralax) #238 grams hydrocortisone acetate 25 mg 25 mg [place] BID #12 ea 08/01/21 rectal suppository (Anucort-HC) cefuroxime axetil 500 mg tablet 500 mg PO BID 7 days #14 tabs 09/01/21 meclizine 25 mg tablet 25 mg PO TID PRN dizziness #10 tabs 09/01/21 zolpidem 5 mg tablet (Ambien) 5 mg PO BEDTIME PRN sleep #2 tabs 10/29/21 zolpidem 5 mg tablet (Ambien) 5 mg PO BEDTIME PRN sleep #2 tabs 10/29/21 levofloxacin 500 mg tablet 500 mg PO DAILY 7 days #7 tabs 07/23/22 levofloxacin 500 mg tablet 500 mg PO DAILY #6 tabs 08/25/22 ofloxacin 0.3 % ear drops 10 drp otic (ears) DAILY 7 days #5 08/25/22 mL hydrocortisone 2.5 % topical cream 1 appl NH BEDTIME PRN hemorrhoids 09/20/22 with perineal applicator #30 grams docusate sodium 100 mg capsule 100 mg PO BID PRN Constipation #14 12/06/22 (Colace) caps phenylephrine 0.25 %-mineral oil 1 appl [place] BID PRN hemorrhoids #56 12/06/22 14 %-petrolatm 74.9 % rectal grams ointment (Hemorrhoidal(phenyleph-min oil-petrolat)) polyethylene glycol 3350 17 17 g PO BID #119 grams 12/06/22 gram/dose oral powder (Miralax) cefuroxime axetil 500 mg tablet 500 mg PO BID 10 days #20 tabs 12/16/22 alprazolam 0.25 mg tablet 0.25 mg PO QID #7 tabs 01/04/23 ofloxacin 0.3 % ear drops 5 drp otic (ear) left BID 7 days 01/06/23 #5 mL alprazolam 0.25 mg tablet 0.25 mg PO TID PRN anxiety #7 tabs 01/11/23 alprazolam 0.25 mg tablet 0.25 mg PO TID PRN anxiety #3 tabs 02/02/23 alprazolam 0.5 mg tablet (Xanax) 0.5 mg PO BEDTIME PRN anxiety #7 04/20/23 tabs metoprolol succinate 50 mg 50 mg PO DAILY #7 tabs 05/18/23 tablet,extended release 24 hr lisinopril 40 mg tablet 40 mg PO QPM #90 tabs 05/22/23 ondansetron 4 mg disintegrating 4 mg PO Q8H PRN nausea and 07/06/23 tablet vomiting #10 tabs hydrocortisone 1 % topical cream 1 appl topical BID PRN rash #28.4 08/03/23 grams phenylephrine 0.25 %-mineral oil 1 appl [place] BID PRN hemorrhoids #57 08/17/23 14 %-petrolatm 74.9 % rectal grams ointment (Preparation H) polyethylene glycol 3350 17 17 g PO BID #119 grams 08/17/23 gram/dose oral powder (Miralax) Allergies Allergy/AdvReac Type Severity Reaction Status Date / Time penicillin G [Penicillin G] Allergy Severe ITCHY/RASH Verified 08/17/23 05:14 Sulfa (Sulfonamide Allergy Severe ITCHY,RASH, Verified 08/17/23 05:14 Antibiotics) rash [Sulfa (Sulfonamides)] trimethoprim [From Bactrim] Allergy Severe HIVES Verified 08/17/23 05:14 penicillin V Allergy Unknown rash Verified 08/17/23 05:14 sulfacetamide Allergy Unknown unknown Verified 08/17/23 05:14 [From Sulfacet-R] sulfur [From Sulfacet-R] Allergy Unknown unknown Verified 08/17/23 05:14 Review of Systems Constitutional: Constitutional: Reports no additional constitutional complaints, Denies chills, Denies fever(s) and Denies night sweats Eyes: Eyes: Reports no additional eye complaints, Denies blurry vision, Denies change in vision, Denies diplopia, Denies eye discharge, Denies loss of vision and Denies eye pain ENT: Denies dizziness Cardiovascular: Cardiovascular: Reports no additional cardiovascular complaints, Denies chest pain, Denies lightheadedness, Denies Loss of Consciousness and Denies dyspnea Respiratory: Respiratory: Reports no additional respiratory complaints and Denies dyspnea Gastrointestinal: Gastrointestinal: Reports no additional gastrointestinal complaints, Denies abdominal pain, Denies melena, Denies hematochezia, Denies change in bowel habits and Denies change in stool character Genitourinary: Genitourinary: Denies hematuria, Denies urinary frequency, Denies dysuria, Denies urinary incontinence, Denies urinary hesitancy and Denies urinary urgency Musculoskeletal: Musculoskeletal: Reports no additional musculoskeletal complaints, Denies numbness and Denies tingling Neurologic: Denies dizziness, Denies loss of vision, Denies numbness and D enies tingling Psychiatric: Psychiatric: Reports no additional psychiatric complaints Endocrine: Endocrine: Reports no additional endocrine complaints Hematologic/Lymphatic: Hematologic/Lymphatic: Reports no additional hematologic/lymphatic complaints Allergic/Immunologic: Allergic/Immunologic: Reports no additional allergic/immunologic complaints [facility] Past Medical History Attestation statement: The following information was validated with the patient. Source: old records reviewed and nursing notes reviewed Medical History Bleeding hemorrhoids Essential hypertension PVC (premature ventricular contraction) PAC (premature atrial contraction) SVT (supraventricular tachycardia) Chronic constipation High blood pressure Vertigo Dementia Arthritis Anxiety Surgical History No pertinent past surgical history Social History Social History Alcohol intake: never Patient Tobacco Use Status: Never used Tobacco Advance Directives: No Physical Exam ED Vital Signs: Vital Signs - 24 hr 08/18/23 11:23 Temperature 98.3 F Pulse Rate 81 Respiratory Rate 16 Blood Pressure 131/80 Pulse Oximetry 95 Oxygen Delivery Method Room Air BMI result Body Mass Index 24.3 Const General: cooperative, no acute distress, alert and awake Nutritional Appearance: well nourished Orientation/consciousness: patient oriented x3 Limitations: no limitations HENMT Head: Yes normal to inspection and Yes atraumatic Ears: hearing grossly normal bilaterally and external ears normal General nose exam: Normal external nose present, no nasal discharge noted and no epistaxis Face and sinus: Yes normal facial exam, No abrasion and No laceration Mouth: Normal oral and palatal mucosa present, no drooling and no muffled voice Eyes General: appearance normal, both eyes and all related structures Periorbital: periorbital findings normal Eyelids: Yes eyelids normal Conjunctivae: conjunctivae normal Pupils: Equal, round and reactive pupils present EOM: EOMs intact bilaterally Neck Neck: Yes normal visual inspection, Yes full ROM and Yes no lymphadenopathy Chest Chest palpation & inspection: normal inspection of the chest Resp Effort & Inspection: normal respiratory effort and able to speak in complete sentences Auscultation: clear to auscultation bilaterally Cardio Rate: regular rate Rhythm: regular rhythm GI Inspection: Yes normal to inspection Palpation (GI): Soft to palpation, not firm, nontender and no guarding Neuro General: patient oriented x3 and moves all extremities Cranial nerves: Yes Equal, round and reactive pupils present Cognition (Neuro): normal cognition Motor exam (neuro): 5/5 motor strength present throughout Sensory Exam: Normal double simultaneous stimulation for sensation Coordination: [id number] test normal Extrem General: Yes normal to inspection, Yes full ROM and Yes capillary refill normal Psych Appearance: grossly normal Mental Status: mental status grossly normal Affect: normal affect Attitude: cooperative Thought process: Normal thought process present Thought content: Normal thought content present Insight: Good insight present (Psych) Course Course Course Narrative: This is an RME: Additional HPI, ROS, PE not included below will be deferred to primary provider. 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 No SI no HI. No chest pain or shortness of breath Medical Decision Making Medical Decision Making MDM Narrative: Patient is a 77 year old assigned female at with a history of anxiety presenting to the emergency department today after being startled awake. Patient's physical exam was unremarkable. I explained my physical exam findings to the patient. I answered all questions asked by the patient. I stressed the importance of the patient taking her medication as prescribed. I stressed the importance of the patient following up with her primary care provider and her psychiatrist. I stressed the importance of the patient returning to the emergency department immediately if her symptoms were to worsen or if she were to develop any dizziness, shortness of breath, difficulty breathing, chest pain, blurry vision, loss of vision, nausea, vomiting, abdominal pain, fever, chills, back pain, or any other complaints. Patient verbalized agreement and understanding with this treatment plan and discharge. Differential Diagnosis Differential Diagnoses: The differential diagnosis associated with the presentation includes Anxiety Independent Historian Clinical information obtained from an independent historian. History obtained from or confirmed by: EMS (EMS provided additional history and confirmed the history provided by the patient.) Discharge Plan Discharge Clinical Impression: Generalized anxiety disorder with panic attacks Patient Disposition: Home, Self-Care Instructions: Anxiety (ED) Additional Instructions: Follow up with your primary care provider. Return to the emergency department immediately if your symptoms worsen or if you develop any dizziness, shortness of breath, difficulty breathing, chest pain, blurry vision, loss of vision, nausea, vomiting, abdominal pain, fever, chills, back pain, or any other complaints. Steve un seguimiento con clark proveedor de atenci?n primaria. Regrese al departamento de emergencias inmediatamente si kelsi s?ntomas empeoran o si presenta mareos, dificultad para respirar, dificultad para respirar, dolor en el pecho, visi?n borrosa, p?rdida de la visi?n, n?useas, v?mitos, dolor abdominal, fiebre, escalofr?os, dolor de espalda o cualquier otras quejas. Prescriptions: No Action escitalopram oxalate 10 mg tablet 10 mg PO DAILY Qty: 30 1RF metoprolol succinate 50 mg tablet extended release 24 hr 50 mg PO DAILY Qty: 90 2RF aspirin 81 mg tablet,delayed release (DR/EC) 81 mg PO BEDTIME Qty: 90 2RF polyethylene glycol 3350 [Miralax] 17 gram/dose powder 17 g PO DAILY PRN (Reason: constipation) Qty: 238 0RF lisinopril 40 mg tablet 40 mg PO QPM Qty: 90 0RF Rx Instructions: Please call and schedule cardiology appt acetaminophen 325 mg capsule 325 mg PO QID PRN (Reason: fever or pain) Qty: 30 0RF melatonin 10 mg tablet extended release 10 mg PO .nightly Qty: 5 0RF metoprolol succinate 50 mg tablet extended release 24 hr 50 mg PO DAILY Qty: 14 0RF ciprofloxacin-dexamethasone [Ciprodex] 0.3-0.1 % drops,suspension 4 drp otic (ears) BID 7 Days 0RF alprazolam 0.5 mg Tablet 0.5 mg PO TID PRN (Reason: Anxiety) hydroxyzine HCl 50 mg Tablet 50 mg PO TID PRN (Reason: Anxiety) mirtazapine 45 mg Tablet 45 mg PO BEDTIME multivitamin Capsule 1 cap PO DAILY sertraline 50 mg Tablet 50 mg PO BEDTIME aripiprazole 2 mg Tablet 2 mg PO BEDTIME cholecalciferol (vitamin D3) 25 mcg (1,000 unit) Tablet 25 mcg PO BID omeprazole 20 mg Tablet,Delayed Release (Dr/Ec) 20 mg PO DAILY linaclotide 145 mcg Capsule 145 mcg PO DAILY diphenhydramine HCl [Benadryl] 25 mg capsule 25 mg PO BEDTIME Qty: 7 0RF cefdinir 300 mg capsule 300 mg PO BID 10 Days Qty: 20 0RF ondansetron HCl [Zofran] 4 mg tablet 4 mg PO Q8H PRN (Reason: nausea and vomiting) Qty: 14 0RF cefuroxime axetil 500 mg tablet 500 mg PO BID 7 Days Qty: 14 0RF meclizine 25 mg tablet 25 mg PO TID PRN (Reason: dizziness) Qty: 10 0RF levofloxacin 500 mg tablet 500 mg PO DAILY 7 Days Qty: 7 0RF cefuroxime axetil 500 mg tablet 500 mg PO BID 10 Days Qty: 20 0RF alprazolam 0.25 mg tablet 0.25 mg PO QID Qty: 7 0RF levofloxacin 500 mg tablet 500 mg PO DAILY Qty: 6 0RF Rx Instructions: start on 08/26 ofloxacin 0.3 % drops 10 drp otic (ears) DAILY 7 Days Qty: 5 0RF Rx Instructions: can substitute eye drops if necessary hydrocortisone 2.5 % cream with perineal applicator 1 appl NH BEDTIME PRN (Reason: hemorrhoids) Qty: 30 0RF Hemorrhoidal(PE-min oil-emma) 0.25-14-74.9 % ointment 1 appl NH BID PRN (Reason: hemorrhoids) Qty: 56 0RF polyethylene glycol 3350 [Miralax] 17 gram/dose powder 17 g PO BID Qty: 119 0RF docusate sodium [Colace] 100 mg capsule 100 mg PO BID PRN (Reason: Constipation) Qty: 14 0RF ofloxacin 0.3 % drops 5 drp otic (ear) left BID 7 Days Qty: 5 0RF alprazolam 0.25 mg tablet 0.25 mg PO TID PRN (Reason: anxiety) Qty: 7 0RF alprazolam [Xanax] 0.5 mg tablet 0.5 mg PO BEDTIME PRN (Reason: anxiety) Qty: 7 0RF metoprolol succinate 50 mg tablet extended release 24 hr 50 mg PO DAILY Qty: 7 0RF Preparation H 0.25-14-74.9 % ointment 1 appl NH BID PRN (Reason: hemorrhoids) Qty: 57 0RF polyethylene glycol 3350 [Miralax] 17 gram/dose powder 17 g PO BID Qty: 119 0RF alprazolam 0.25 mg tablet 0.25 mg PO TID PRN (Reason: anxiety) Qty: 3 0RF ondansetron 4 mg tablet,disintegrating 4 mg PO Q8H PRN (Reason: nausea and vomiting) Qty: 10 0RF hydrocortisone 1 % cream 1 appl topical BID PRN (Reason: rash) Qty: 28.4 0RF Calmoseptine 0.44-20.6 % ointment 1 appl topical QID PRN (Reason: skin irritation) Qty: 113 0RF magnesium citrate Solution 150 ml PO DAILY PRN (Reason: constipation) Qty: 296 0RF Rx Instructions: take only when needed for constipation hydrocortisone acetate [Anucort-HC] 25 mg suppository 25 mg NH BID Qty: 12 3RF zolpidem [Ambien] 5 mg tablet 5 mg PO BEDTIME PRN (Reason: sleep) Qty: 2 0RF zolpidem [Ambien] 5 mg tablet 5 mg PO BEDTIME PRN (Reason: sleep) Qty: 2 0RF Referrals: [facility] [place] Family Medicine [Provider Group] (Call to establish and follow up with a primary care provider. If you already have a primary care provider, please follow up with them. Llame para establecer y realizar un seguimiento con un proveedor de atenci?n primaria. Si ya tiene un proveedor de atenci?n primaria, steve un seguimiento con ?l.) [facility] [place] [facility] [Provider Group] (Call to establish and follow up with a primary care provider. If you already have a primary care provider, please follow up with them. Llame para establecer y realizar un seguimiento con un proveedor de atenci?n primaria. Si ya tiene un proveedor de atenci?n primaria, steve un seguimiento con ?l.) [facility] [place] [facility] [Provider Group] (Call to establish and follow up with a primary care provider. If you already have a primary care provider, please follow up with them. Llame para establecer y realizar un seguimiento con un proveedor de atenci?n primaria. Si ya tiene un proveedor de atenci?n primaria, steve un seguimiento con ?l.) Interventions: ED Discharge Assessment Last Done: 08/18/23 11:36 Discharge Date/Time: 08/18/23 11:38 Print Language: Yi
[2023-08-18 11:23] VITALS: BP 131/80; PULSE 81; RESP 16; TEMP 36.8; O2SAT 95; BMI 24.3
== END 2023-08-18 11:38 | disposition home or self-care (01) ==
LOC: HO.ED 11:35
PROVIDERS: Emergency Provider Emergency Medicine; PCP Internal Medicine Geriatric Medicine
DX: F41.1 Generalized anxiety disorder (principal); F43.0 Acute stress reaction; F41.0 Panic disorder [episodic paroxysmal anxiety]; Z79.899 Other long term (current) drug therapy
CPT/HCPCS: 99282

== ENCOUNTER 2023-08-18 21:54 | Emergency (ER) | payer OTHER, SELFPAY ==
[2023-08-18 22:07] VITALS: BP 164/86; PULSE 86; O2SAT 99
[2023-08-18 22:31] VITALS: BP 146/78; PULSE 87; RESP 16; TEMP 36.6; O2SAT 97; BMI 26.5
--- NOTE | 2023-08-18 22:34 | PC.NURSE ---
PT REQUESTING TO LEAVE FROM [facility]. AOX4. STATES ELEV BP AT HOME, PT WALKED INTO [facility] SAYING IF I HAVE NORMAL BLOOD PRESSURE I'M GOING HOME, I HAVE MY RIDE HERE . CHRISTIANA SIMON, SOB, APPEARS IN NAD.
== END 2023-08-18 22:44 | disposition left against medical advice (07) ==
PROVIDERS: Emergency Provider Emergency Medicine
DX: F41.1 Generalized anxiety disorder (principal)
CPT/HCPCS: 99281

== ENCOUNTER 2023-08-19 02:48 | Emergency (ER) | payer OTHER, SELFPAY ==
[2023-08-19 02:51] VITALS: BP 172/90; PULSE 80; O2SAT 97
[2023-08-19 02:59] VITALS: BP 154/78; PULSE 79; RESP 16; TEMP 36.8; O2SAT 95; BMI 27.4
--- NOTE | 2023-08-19 03:15 | ED.ANXIETY ---
HPI - Anxiety General Chief Complaint: Anxiety Stated Complaint: High blood pressure and anxiety Time Seen by Provider: 08/19/23 03:14 Source: patient Mode of arrival: ambulatory Limitations: no limitations History of Present Illness HPI narrative: This is a 77-year-old female, with a past medical history of hypertension, anxiety with panic attacks on chronic benzodiazepines, SVT, hemorrhoids, vertigo dementia, presenting to the emergency department for evaluation of elevated blood pressure and anxiety which is a typical presentation for the patient to the ED (Similar visit to the ED last night) patient ran out of her prescription and supposed to receive a new prescription from her PCP tomorrow. Related Data Home Medications Medication Instructions Recorded Confirmed alprazolam 0.5 mg tablet 0.5 mg PO TID PRN Anxiety 08/09/20 02/06/23 aripiprazole 2 mg tablet 2 mg PO BEDTIME 08/09/20 02/06/23 cholecalciferol (vitamin D3) 25 25 mcg PO BID 08/09/20 02/06/23 mcg (1,000 unit) tablet hydroxyzine HCl 50 mg tablet 50 mg PO TID PRN Anxiety 08/09/20 02/06/23 linaclotide 145 mcg capsule 145 mcg PO DAILY 08/09/20 02/06/23 mirtazapine 45 mg tablet 45 mg PO BEDTIME 08/09/20 02/06/23 multivitamin 1 cap PO DAILY 08/09/20 02/06/23 omeprazole 20 mg tablet,delayed 20 mg PO DAILY 08/09/20 02/06/23 release sertraline 50 mg tablet 50 mg PO BEDTIME 08/09/20 02/06/23 Previous Rx's Medication Instructions Recorded escitalopram oxalate 10 mg tablet 10 mg PO DAILY #30 tabs 09/06/20 acetaminophen 325 mg capsule 325 mg PO QID PRN fever or pain 09/16/20 #30 caps aspirin 81 mg tablet,delayed 81 mg PO BEDTIME #90 tabs 09/28/20 release metoprolol succinate 50 mg 50 mg PO DAILY #90 tabs 09/28/20 tablet,extended release 24 hr menthol 0.44 %-zinc oxide 20.6 % 1 appl topical QID PRN skin 12/13/20 topical ointment (Calmoseptine) irritation #113 grams magnesium citrate 150 ml PO DAILY PRN constipation 12/14/20 #296 mL diphenhydramine HCl 25 mg capsule 25 mg PO BEDTIME insomnia #7 caps 12/25/20 (Benadryl) melatonin 10 mg tablet,extended 10 mg PO .nightly #5 tabs 01/07/21 release cefdinir 300 mg capsule 300 mg PO BID Otitis media 10 days 04/14/21 #20 caps ondansetron HCl 4 mg tablet 4 mg PO Q8H PRN nausea and 04/14/21 (Zofran) vomiting #14 tabs metoprolol succinate 50 mg 50 mg PO DAILY #14 tabs 05/22/21 tablet,extended release 24 hr ciprofloxacin 0.3 %-dexamethasone 4 drp otic (ears) BID 7 days 05/26/21 0.1 % ear drops,suspension (Ciprodex) polyethylene glycol 3350 17 17 g PO DAILY PRN constipation 07/31/21 gram/dose oral powder (Miralax) #238 grams hydrocortisone acetate 25 mg 25 mg [place] BID #12 ea 08/01/21 rectal suppository (Anucort-HC) cefuroxime axetil 500 mg tablet 500 mg PO BID 7 days #14 tabs 09/01/21 meclizine 25 mg tablet 25 mg PO TID PRN dizziness #10 tabs 09/01/21 zolpidem 5 mg tablet (Ambien) 5 mg PO BEDTIME PRN sleep #2 tabs 10/29/21 zolpidem 5 mg tablet (Ambien) 5 mg PO BEDTIME PRN sleep #2 tabs 10/29/21 levofloxacin 500 mg tablet 500 mg PO DAILY 7 days #7 tabs 07/23/22 levofloxacin 500 mg tablet 500 mg PO DAILY #6 tabs 08/25/22 ofloxacin 0.3 % ear drops 10 drp otic (ears) DAILY 7 days #5 08/25/22 mL hydrocortisone 2.5 % topical cream 1 appl NH BEDTIME PRN hemorrhoids 09/20/22 with perineal applicator #30 grams docusate sodium 100 mg capsule 100 mg PO BID PRN Constipation #14 12/06/22 (Colace) caps phenylephrine 0.25 %-mineral oil 1 appl [place] BID PRN hemorrhoids #56 12/06/22 14 %-petrolatm 74.9 % rectal grams ointment (Hemorrhoidal(phenyleph-min oil-petrolat)) polyethylene glycol 3350 17 17 g PO BID #119 grams 12/06/22 gram/dose oral powder (Miralax) cefuroxime axetil 500 mg tablet 500 mg PO BID 10 days #20 tabs 12/16/22 alprazolam 0.25 mg tablet 0.25 mg PO QID #7 tabs 01/04/23 ofloxacin 0.3 % ear drops 5 drp otic (ear) left BID 7 days 01/06/23 #5 mL alprazolam 0.25 mg tablet 0.25 mg PO TID PRN anxiety #7 tabs 01/11/23 alprazolam 0.25 mg tablet 0.25 mg PO TID PRN anxiety #3 tabs 02/02/23 alprazolam 0.5 mg tablet (Xanax) 0.5 mg PO BEDTIME PRN anxiety #7 04/20/23 tabs metoprolol succinate 50 mg 50 mg PO DAILY #7 tabs 05/18/23 tablet,extended release 24 hr lisinopril 40 mg tablet 40 mg PO QPM #90 tabs 05/22/23 ondansetron 4 mg disintegrating 4 mg PO Q8H PRN nausea and 07/06/23 tablet vomiting #10 tabs hydrocortisone 1 % topical cream 1 appl topical BID PRN rash #28.4 08/03/23 grams phenylephrine 0.25 %-mineral oil 1 appl [place] BID PRN hemorrhoids #57 08/17/23 14 %-petrolatm 74.9 % rectal grams ointment (Preparation H) polyethylene glycol 3350 17 17 g PO BID #119 grams 08/17/23 gram/dose oral powder (Miralax) Allergies Allergy/AdvReac Type Severity Reaction Status Date / Time penicillin G [Penicillin G] Allergy Severe ITCHY/RASH Verified 08/19/23 03:00 Sulfa (Sulfonamide Allergy Severe ITCHY,RASH, Verified 08/19/23 03:00 Antibiotics) rash [Sulfa (Sulfonamides)] trimethoprim [From Bactrim] Allergy Severe HIVES Verified 08/19/23 03:00 penicillin V Allergy Unknown rash Verified 08/19/23 03:00 sulfacetamide Allergy Unknown unknown Verified 08/19/23 03:00 [From Sulfacet-R] sulfur [From Sulfacet-R] Allergy Unknown unknown Verified 08/19/23 03:00 Review of Systems Review of Systems: all other systems are reviewed and are negative Constitutional: Reports as per HPI and Reports no additional constitutional complaints Eyes: Reports as per HPI and Reports no additional eye complaints Reports system reviewed and no additional complaints, except as documented Cardiovascular: Reports as per HPI and Reports no additional cardiovascular complaints Respiratory: Reports as per HPI and Reports no additional respiratory complaints Gastrointestinal: Reports as per HPI and Reports no additional gastrointestinal complaints Genitourinary: Reports no additional female genitourinary complaints Musculoskeletal: Reports no additional musculoskeletal complaints Skin/Breast: Reports system reviewed and no additional complaints, except as docu Psychiatric: Reports no additional psychiatric complaints Endocrine: Reports no additional endocrine complaints Hematologic/Lymphatic: Reports no additional hematologic/lymphatic complaints Allergic/Immunologic: Reports no additional allergic/immunologic complaints Reports system reviewed and no additional complaints, except as documented and Reports Abnormal speech present [facility] Past Medical History Medical History Bleeding hemorrhoids Essential hypertension PVC (premature ventricular contraction) PAC (premature atrial contraction) SVT (supraventricular tachycardia) Chronic constipation High blood pressure Vertigo Dementia Arthritis Anxiety Surgical History No pertinent past surgical history Social History Social History Alcohol intake: never Patient Tobacco Use Status: Never used Tobacco Physical Exam Vital Signs: Vital Signs: Last Vital Signs Temp 98.3 F 08/19/23 02:59 Pulse 79 08/19/23 02:59 Resp 16 08/19/23 02:59 BP 154/78 H 08/19/23 02:59 Pulse Ox 95 08/19/23 02:59 O2 Del Method Room Air 08/19/23 02:59 BMI result Body Mass Index 27.4 Vital signs have been reviewed and appear to be correct. Blood pressure elevated. Heart rate normal. Respiratory rate normal. Temperature normal. Oxygen saturation normal. Appearance: anxious, Alert. Oriented X3. No acute distress. Head: Normal external exam. Normocephalic. Atraumatic. No Gomes signs noted. No raccoon eyes noted Eyes: PERRLA. EOMI. Conjunctiva and sclera normal. Eyelids normal. ENT: TM's Normal. Pharynx normal. Uvula midline. Moist mucous membranes. No trismus noted. No drooling noted. No muffled voice noted. Neck: Normal inspection. Neck supple. FROM. No adenopathy. Thyroid Normal. No meningeal signs. No neck mass noted. CVS: Normal heart rate and rhythm. Heart sound normal. No murmurs noted. Pulses normal throughout. Respiratory: No respiratory distress. Painless inspiration. Breath sounds normal. No wheezes/rales/rhonchi noted. Chest nontender. No accessory muscle usage noted or decreased air movement noted. Abdomen: Soft and nontender. Bowel sounds normal in all 4 quadrants. No distention noted. No organomegaly noted. No visible injury noted. Back: No CVA tenderness. Full range of motion noted. Skin: Skin warm and dry. Normal skin color. Normal skin turgor. No rashes/lesions/lacerations noted. Extremities: No lower extremity edema. Extremities exhibit normal range of motion. Extremities nontender. Neuro: Oriented X 3. Cranial nerve exam: II-XII are grossly intact No motor deficit. No sensory deficit. Reflexes normal. Course Reevaluation(s) Reevaluation #1: chronic anxiety on chronic benzos ran out of her medication because the holiday expecting her medication to be delivered today from her PCP. Time: 03:18 Medical Decision Making Differential Diagnosis Differential Diagnoses: The differential diagnosis associated with the presentation includes ( anxiety, panic attack, essential hypertension.) Admission/Observation Consideration of admission/observation: Escalation of care including admission/observation considered Chronic Conditions Patient?s care impacted by: Other ( Anxiety and chronic use of benzodiazepine) Discharge Plan Discharge Clinical Impression: Acute anxiety Patient Disposition: Home, Self-Care Instructions: Anxiety (ED) Prescriptions: No Action escitalopram oxalate 10 mg tablet 10 mg PO DAILY Qty: 30 1RF metoprolol succinate 50 mg tablet extended release 24 hr 50 mg PO DAILY Qty: 90 2RF aspirin 81 mg tablet,delayed release (DR/EC) 81 mg PO BEDTIME Qty: 90 2RF polyethylene glycol 3350 [Miralax] 17 gram/dose powder 17 g PO DAILY PRN (Reason: constipation) Qty: 238 0RF lisinopril 40 mg tablet 40 mg PO QPM Qty: 90 0RF Rx Instructions: Please call and schedule cardiology appt acetaminophen 325 mg capsule 325 mg PO QID PRN (Reason: fever or pain) Qty: 30 0RF melatonin 10 mg tablet extended release 10 mg PO .nightly Qty: 5 0RF metoprolol succinate 50 mg tablet extended release 24 hr 50 mg PO DAILY Qty: 14 0RF ciprofloxacin-dexamethasone [Ciprodex] 0.3-0.1 % drops,suspension 4 drp otic (ears) BID 7 Days 0RF alprazolam 0.5 mg Tablet 0.5 mg PO TID PRN (Reason: Anxiety) hydroxyzine HCl 50 mg Tablet 50 mg PO TID PRN (Reason: Anxiety) mirtazapine 45 mg Tablet 45 mg PO BEDTIME multivitamin Capsule 1 cap PO DAILY sertraline 50 mg Tablet 50 mg PO BEDTIME aripiprazole 2 mg Tablet 2 mg PO BEDTIME cholecalciferol (vitamin D3) 25 mcg (1,000 unit) Tablet 25 mcg PO BID omeprazole 20 mg Tablet,Delayed Release (Dr/Ec) 20 mg PO DAILY linaclotide 145 mcg Capsule 145 mcg PO DAILY diphenhydramine HCl [Benadryl] 25 mg capsule 25 mg PO BEDTIME Qty: 7 0RF cefdinir 300 mg capsule 300 mg PO BID 10 Days Qty: 20 0RF ondansetron HCl [Zofran] 4 mg tablet 4 mg PO Q8H PRN (Reason: nausea and vomiting) Qty: 14 0RF cefuroxime axetil 500 mg tablet 500 mg PO BID 7 Days Qty: 14 0RF meclizine 25 mg tablet 25 mg PO TID PRN (Reason: dizziness) Qty: 10 0RF levofloxacin 500 mg tablet 500 mg PO DAILY 7 Days Qty: 7 0RF cefuroxime axetil 500 mg tablet 500 mg PO BID 10 Days Qty: 20 0RF alprazolam 0.25 mg tablet 0.25 mg PO QID Qty: 7 0RF levofloxacin 500 mg tablet 500 mg PO DAILY Qty: 6 0RF Rx Instructions: start on 08/26 ofloxacin 0.3 % drops 10 drp otic (ears) DAILY 7 Days Qty: 5 0RF Rx Instructions: can substitute eye drops if necessary hydrocortisone 2.5 % cream with perineal applicator 1 appl NH BEDTIME PRN (Reason: hemorrhoids) Qty: 30 0RF Hemorrhoidal(PE-min oil-emma) 0.25-14-74.9 % ointment 1 appl NH BID PRN (Reason: hemorrhoids) Qty: 56 0RF polyethylene glycol 3350 [Miralax] 17 gram/dose powder 17 g PO BID Qty: 119 0RF docusate sodium [Colace] 100 mg capsule 100 mg PO BID PRN (Reason: Constipation) Qty: 14 0RF ofloxacin 0.3 % drops 5 drp otic (ear) left BID 7 Days Qty: 5 0RF alprazolam 0.25 mg tablet 0.25 mg PO TID PRN (Reason: anxiety) Qty: 7 0RF alprazolam [Xanax] 0.5 mg tablet 0.5 mg PO BEDTIME PRN (Reason: anxiety) Qty: 7 0RF metoprolol succinate 50 mg tablet extended release 24 hr 50 mg PO DAILY Qty: 7 0RF Preparation H 0.25-14-74.9 % ointment 1 appl [place] BID PRN (Reason: hemorrhoids) Qty: 57 0RF polyethylene glycol 3350 [Miralax] 17 gram/dose powder 17 g PO BID Qty: 119 0RF alprazolam 0.25 mg tablet 0.25 mg PO TID PRN (Reason: anxiety) Qty: 3 0RF ondansetron 4 mg tablet,disintegrating 4 mg PO Q8H PRN (Reason: nausea and vomiting) Qty: 10 0RF hydrocortisone 1 % cream 1 appl topical BID PRN (Reason: rash) Qty: 28.4 0RF Calmoseptine 0.44-20.6 % ointment 1 appl topical QID PRN (Reason: skin irritation) Qty: 113 0RF magnesium citrate Solution 150 ml PO DAILY PRN (Reason: constipation) Qty: 296 0RF Rx Instructions: take only when needed for constipation hydrocortisone acetate [Anucort-HC] 25 mg suppository 25 mg NH BID Qty: 12 3RF zolpidem [Ambien] 5 mg tablet 5 mg PO BEDTIME PRN (Reason: sleep) Qty: 2 0RF zolpidem [Ambien] 5 mg tablet 5 mg PO BEDTIME PRN (Reason: sleep) Qty: 2 0RF
[2023-08-19 03:50] VITALS: BP 123/74; PULSE 82; RESP 16; TEMP 36.9; O2SAT 98
== END 2023-08-19 04:10 | disposition home or self-care (01) ==
PROVIDERS: Emergency Provider Emergency Medicine
DX: F41.1 Generalized anxiety disorder (principal); F43.0 Acute stress reaction; F11.10 Opioid abuse, uncomplicated; I10 Essential (primary) hypertension; F41.0 Panic disorder [episodic paroxysmal anxiety]; F03.90 Unspecified dementia, unspecified severity, without behavioral disturbance, psychotic disturbance, mood disturbance, and anxiety; Z79.899 Other long term (current) drug therapy
CPT/HCPCS: 99283; 99284

== ENCOUNTER 2023-08-20 09:15 | Outpatient (REF) | payer OTHER, SELFPAY | END 2023-08-20 09:16 | disposition home or self-care (01) | LOC: HO.HHCX 09:15 | PROVIDERS: Visit Provider Emergency Medicine | DX: M54.50 Low back pain, unspecified (principal) | CPT/HCPCS: 72100 ==

== ENCOUNTER 2023-08-21 09:05 | Outpatient (REF) | payer OTHER, SELFPAY | END 2023-08-21 09:06 | disposition home or self-care (01) | LOC: HO.HHCL 09:05 | PROVIDERS: Visit Provider Emergency Medicine | DX: M54.50 Low back pain, unspecified (principal) | CPT/HCPCS: 87086 ==

== ENCOUNTER 2023-08-25 01:18 | Emergency (ER) | payer OTHER, SELFPAY ==
[2023-08-25 01:42] VITALS: BP 131/73; PULSE 85; RESP 18; TEMP 36.4; O2SAT 97
--- NOTE | 2023-08-25 02:32 | ED_ITS ---
HPI - General Adult General Chief complaint: General Medical Stated complaint: BLEEDING FROM HEMORRHOIDS W/BURNING/THROBBING PER Time Seen by Provider: 08/25/23 01:35 Source: patient Mode of arrival: wheelchair Limitations: no limitations History of Present Illness HPI narrative: 77-year-old female with history of hypertension, SVT, anxiety, dementia, who presents emergency department for evaluation of bright red blood per rectum after moving her bowels and itching throughout her entire body and in the pelvic area. Patient is seen frequently for anxiety. You she states she does have a history of hemorrhoids. She states she takes a medicine daily to help her move her bowels but she has not been straining to move her bowels. She states that since Friday whenever she moves her bowels and wipes herself she notices bright red blood on the toilet paper pain. She denies lightheadedness, dizziness, dark tarry stools or black stools Related Data Home Medications Medication Instructions Recorded Confirmed alprazolam 0.5 mg tablet 0.5 mg PO TID PRN Anxiety 08/09/20 02/06/23 aripiprazole 2 mg tablet 2 mg PO BEDTIME 08/09/20 02/06/23 cholecalciferol (vitamin D3) 25 25 mcg PO BID 08/09/20 02/06/23 mcg (1,000 unit) tablet hydroxyzine HCl 50 mg tablet 50 mg PO TID PRN Anxiety 08/09/20 02/06/23 linaclotide 145 mcg capsule 145 mcg PO DAILY 08/09/20 02/06/23 mirtazapine 45 mg tablet 45 mg PO BEDTIME 08/09/20 02/06/23 multivitamin 1 cap PO DAILY 08/09/20 02/06/23 omeprazole 20 mg tablet,delayed 20 mg PO DAILY 08/09/20 02/06/23 release sertraline 50 mg tablet 50 mg PO BEDTIME 08/09/20 02/06/23 Previous Rx's Medication Instructions Recorded escitalopram oxalate 10 mg tablet 10 mg PO DAILY #30 tabs 09/06/20 acetaminophen 325 mg capsule 325 mg PO QID PRN fever or pain 09/16/20 #30 caps aspirin 81 mg tablet,delayed 81 mg PO BEDTIME #90 tabs 09/28/20 release metoprolol succinate 50 mg 50 mg PO DAILY #90 tabs 09/28/20 tablet,extended release 24 hr menthol 0.44 %-zinc oxide 20.6 % 1 appl topical QID PRN skin 12/13/20 topical ointment (Calmoseptine) irritation #113 grams magnesium citrate 150 ml PO DAILY PRN constipation 12/14/20 #296 mL diphenhydramine HCl 25 mg capsule 25 mg PO BEDTIME insomnia #7 caps 12/25/20 (Benadryl) melatonin 10 mg tablet,extended 10 mg PO .nightly #5 tabs 01/07/21 release cefdinir 300 mg capsule 300 mg PO BID Otitis media 10 days 04/14/21 #20 caps ondansetron HCl 4 mg tablet 4 mg PO Q8H PRN nausea and 04/14/21 (Zofran) vomiting #14 tabs metoprolol succinate 50 mg 50 mg PO DAILY #14 tabs 05/22/21 tablet,extended release 24 hr ciprofloxacin 0.3 %-dexamethasone 4 drp otic (ears) BID 7 days 05/26/21 0.1 % ear drops,suspension (Ciprodex) polyethylene glycol 3350 17 17 g PO DAILY PRN constipation 07/31/21 gram/dose oral powder (Miralax) #238 grams hydrocortisone acetate 25 mg 25 mg NM BID #12 ea 08/01/21 rectal suppository (Anucort-HC) cefuroxime axetil 500 mg tablet 500 mg PO BID 7 days #14 tabs 09/01/21 meclizine 25 mg tablet 25 mg PO TID PRN dizziness #10 tabs 09/01/21 zolpidem 5 mg tablet (Ambien) 5 mg PO BEDTIME PRN sleep #2 tabs 10/29/21 zolpidem 5 mg tablet (Ambien) 5 mg PO BEDTIME PRN sleep #2 tabs 10/29/21 levofloxacin 500 mg tablet 500 mg PO DAILY 7 days #7 tabs 07/23/22 levofloxacin 500 mg tablet 500 mg PO DAILY #6 tabs 08/25/22 ofloxacin 0.3 % ear drops 10 drp otic (ears) DAILY 7 days #5 08/25/22 mL hydrocortisone 2.5 % topical cream 1 appl NM BEDTIME PRN hemorrhoids 09/20/22 with perineal applicator #30 grams docusate sodium 100 mg capsule 100 mg PO BID PRN Constipation #14 12/06/22 (Colace) caps phenylephrine 0.25 %-mineral oil 1 appl NM BID PRN hemorrhoids #56 12/06/22 14 %-petrolatm 74.9 % rectal grams ointment (Hemorrhoidal(phenyleph-min oil-petrolat)) polyethylene glycol 3350 17 17 g PO BID #119 grams 12/06/22 gram/dose oral powder (Miralax) cefuroxime axetil 500 mg tablet 500 mg PO BID 10 days #20 tabs 12/16/22 alprazolam 0.25 mg tablet 0.25 mg PO QID #7 tabs 01/04/23 ofloxacin 0.3 % ear drops 5 drp otic (ear) left BID 7 days 01/06/23 #5 mL alprazolam 0.25 mg tablet 0.25 mg PO TID PRN anxiety #7 tabs 01/11/23 alprazolam 0.25 mg tablet 0.25 mg PO TID PRN anxiety #3 tabs 02/02/23 alprazolam 0.5 mg tablet (Xanax) 0.5 mg PO BEDTIME PRN anxiety #7 04/20/23 tabs metoprolol succinate 50 mg 50 mg PO DAILY #7 tabs 05/18/23 tablet,extended release 24 hr lisinopril 40 mg tablet 40 mg PO QPM #90 tabs 05/22/23 ondansetron 4 mg disintegrating 4 mg PO Q8H PRN nausea and 07/06/23 tablet vomiting #10 tabs hydrocortisone 1 % topical cream 1 appl topical BID PRN rash #28.4 08/03/23 grams phenylephrine 0.25 %-mineral oil 1 appl NM BID PRN hemorrhoids #57 08/17/23 14 %-petrolatm 74.9 % rectal grams ointment (Preparation H) polyethylene glycol 3350 17 17 g PO BID #119 grams 08/17/23 gram/dose oral powder (Miralax) diphenhydramine HCl 25 mg tablet 25 mg PO TID PRN Pruritus #20 tabs 08/25/23 (Benadryl Allergy) phenylephrine 0.25 %-cocoa butter 1 supp NM BID #24 ea 08/25/23 88.44 % rectal suppository (Preparation H(phenyleph,cocoa buttr)) phenylephrine 0.25 %-mineral oil 1 appl NM BID #28 grams 08/25/23 14 %-petrolatm 74.9 % rectal ointment (Preparation H) Allergies Allergy/AdvReac Type Severity Reaction Status Date / Time penicillin G [Penicillin G] Allergy Severe ITCHY/RASH Verified 08/25/23 01:41 Sulfa (Sulfonamide Allergy Severe ITCHY,RASH, Verified 08/25/23 01:41 Antibiotics) rash [Sulfa (Sulfonamides)] trimethoprim [From Bactrim] Allergy Severe HIVES Verified 08/25/23 01:41 penicillin V Allergy Unknown rash Verified 08/25/23 01:41 sulfacetamide Allergy Unknown unknown Verified 08/25/23 01:41 [From Sulfacet-R] sulfur [From Sulfacet-R] Allergy Unknown unknown Verified 08/25/23 01:41 Review of Systems Review of Systems: Yes all other systems are reviewed and are negative PMFSH Past Medical History Medical History Bleeding hemorrhoids Essential hypertension PVC (premature ventricular contraction) PAC (premature atrial contraction) SVT (supraventricular tachycardia) Chronic constipation High blood pressure Vertigo Dementia Arthritis Anxiety Surgical History No pertinent past surgical history Social History Social History Alcohol intake: never Patient Tobacco Use Status: Never used Tobacco Smoked in Last 30 Days: No Any prior treatment program specific to substance use: No Advance Directives: No Advance Directives Information Provided: Yes Physical Exam ED Vital Signs: Vital Signs - 24 hr 08/25/23 01:42 Temperature 97.6 F Pulse Rate 85 Respiratory Rate 18 Blood Pressure 131/73 Pulse Oximetry 97 Oxygen Delivery Method Room Air BMI result Body Mass Index 30.0 Vital signs were normal Exam: General: Awake, alert in no distress Head: Normocephalic, atraumatic EENT: PERRL, Lids normal, sclera normal, conjunctiva normal, nose normal , ears normal, throat without erythema or exudates Abdomen: soft, non-tender, nondistended, normal bowel sounds Rectal exam: Id no fissures or external hemorrhoids noted, digital exam did not reveal any masses, no palpable hemorrhoids, stool was brown but trace Hemoccult- positive Medical Decision Making Medical Decision Making MDM Narrative: 77-year-old female history of hypertension, SVT, anxiety, dementia who presents emergency department for evaluation of bright red blood per rectum after moving her bowels for the past 2-3 days. She also complaining of itchiness. Abdominal exam revealed no tenderness and her rectal exam was unremarkable pain. Patient's stool was brown but trace Hemoccult-positive. Patient most likely has internal hemorrhoids. She was prescribed preparation H hemorrhoid ointment and preparation H suppositories. She was given Benadryl 25 mg orally for her itchiness and prescribed Benadryl. She was given printed and verbal instructions discharged home. Differential Diagnosis Differential Diagnoses: The differential diagnosis associated with the presentation includes Differential diagnosis includes was not limited to external hemorrhoids, in ternal hemorrhoids, rectal fissure, or GI bleed. Discharge Plan Discharge Clinical Impression: Bleeding internal hemorrhoids, Pruritus Patient Disposition: Home, Self-Care Instructions: Hemorrhoids (ED) Additional Instructions: Use preparation H ointment, twice a day and after each bowel movement Use preparation H suppositories , insert 1 suppository in your rectum twice a day and after each bowel movement Take Benadryl 25 mg, 1 pill 4 times a day as needed for itchiness Follow-up with your doctor in 2 days. Please return to the emergency department if your symptoms get worse or if you develop any symptoms that are concerning to you. Prescriptions: New Preparation H 0.25-14-74.9 % ointment 1 appl NM BID Qty: 28 0RF Preparation H(pe,cb) 0.25-88.44 % suppository 1 supp NM BID Qty: 24 0RF diphenhydramine HCl [Benadryl Allergy] 25 mg tablet 25 mg PO TID PRN (Reason: Pruritus) Qty: 20 0RF No Action escitalopram oxalate 10 mg tablet 10 mg PO DAILY Qty: 30 1RF metoprolol succinate 50 mg tablet extended release 24 hr 50 mg PO DAILY Qty: 90 2RF aspirin 81 mg tablet,delayed release (DR/EC) 81 mg PO BEDTIME Qty: 90 2RF polyethylene glycol 3350 [Miralax] 17 gram/dose powder 17 g PO DAILY PRN (Reason: constipation) Qty: 238 0RF lisinopril 40 mg tablet 40 mg PO QPM Qty: 90 0RF Rx Instructions: Please call and schedule cardiology appt acetaminophen 325 mg capsule 325 mg PO QID PRN (Reason: fever or pain) Qty: 30 0RF melatonin 10 mg tablet extended release 10 mg PO .nightly Qty: 5 0RF metoprolol succinate 50 mg tablet extended release 24 hr 50 mg PO DAILY Qty: 14 0RF ciprofloxacin-dexamethasone [Ciprodex] 0.3-0.1 % drops,suspension 4 drp otic (ears) BID 7 Days 0RF alprazolam 0.5 mg Tablet 0.5 mg PO TID PRN (Reason: Anxiety) hydroxyzine HCl 50 mg Tablet 50 mg PO TID PRN (Reason: Anxiety) mirtazapine 45 mg Tablet 45 mg PO BEDTIME multivitamin Capsule 1 cap PO DAILY sertraline 50 mg Tablet 50 mg PO BEDTIME aripiprazole 2 mg Tablet 2 mg PO BEDTIME cholecalciferol (vitamin D3) 25 mcg (1,000 unit) Tablet 25 mcg PO BID omeprazole 20 mg Tablet,Delayed Release (Dr/Ec) 20 mg PO DAILY linaclotide 145 mcg Capsule 145 mcg PO DAILY diphenhydramine HCl [Benadryl] 25 mg capsule 25 mg PO BEDTIME Qty: 7 0RF cefdinir 300 mg capsule 300 mg PO BID 10 Days Qty: 20 0RF ondansetron HCl [Zofran] 4 mg tablet 4 mg PO Q8H PRN (Reason: nausea and vomiting) Qty: 14 0RF cefuroxime axetil 500 mg tablet 500 mg PO BID 7 Days Qty: 14 0RF meclizine 25 mg tablet 25 mg PO TID PRN (Reason: dizziness) Qty: 10 0RF levofloxacin 500 mg tablet 500 mg PO DAILY 7 Days Qty: 7 0RF cefuroxime axetil 500 mg tablet 500 mg PO BID 10 Days Qty: 20 0RF alprazolam 0.25 mg tablet 0.25 mg PO QID Qty: 7 0RF levofloxacin 500 mg tablet 500 mg PO DAILY Qty: 6 0RF Rx Instructions: start on 08/26 ofloxacin 0.3 % drops 10 drp otic (ears) DAILY 7 Days Qty: 5 0RF Rx Instructions: can substitute eye drops if necessary hydrocortisone 2.5 % cream with perineal applicator 1 appl NM BEDTIME PRN (Reason: hemorrhoids) Qty: 30 0RF Hemorrhoidal(PE-min oil-emma) 0.25-14-74.9 % ointment 1 appl NM BID PRN (Reason: hemorrhoids) Qty: 56 0RF polyethylene glycol 3350 [Miralax] 17 gram/dose powder 17 g PO BID Qty: 119 0RF docusate sodium [Colace] 100 mg capsule 100 mg PO BID PRN (Reason: Constipation) Qty: 14 0RF ofloxacin 0.3 % drops 5 drp otic (ear) left BID 7 Days Qty: 5 0RF alprazolam 0.25 mg tablet 0.25 mg PO TID PRN (Reason: anxiety) Qty: 7 0RF alprazolam [Xanax] 0.5 mg tablet 0.5 mg PO BEDTIME PRN (Reason: anxiety) Qty: 7 0RF metoprolol succinate 50 mg tablet extended release 24 hr 50 mg PO DAILY Qty: 7 0RF Preparation H 0.25-14-74.9 % ointment 1 appl NM BID PRN (Reason: hemorrhoids) Qty: 57 0RF polyethylene glycol 3350 [Miralax] 17 gram/dose powder 17 g PO BID Qty: 119 0RF alprazolam 0.25 mg tablet 0.25 mg PO TID PRN (Reason: anxiety) Qty: 3 0RF ondansetron 4 mg tablet,disintegrating 4 mg PO Q8H PRN (Reason: nausea and vomiting) Qty: 10 0RF hydrocortisone 1 % cream 1 appl topical BID PRN (Reason: rash) Qty: 28.4 0RF Calmoseptine 0.44-20.6 % ointment 1 appl topical QID PRN (Reason: skin irritation) Qty: 113 0RF magnesium citrate Solution 150 ml PO DAILY PRN (Reason: constipation) Qty: 296 0RF Rx Instructions: take only when needed for constipation hydrocortisone acetate [Anucort-HC] 25 mg suppository 25 mg NM BID Qty: 12 3RF zolpidem [Ambien] 5 mg tablet 5 mg PO BEDTIME PRN (Reason: sleep) Qty: 2 0RF zolpidem [Ambien] 5 mg tablet 5 mg PO BEDTIME PRN (Reason: sleep) Qty: 2 0RF
[2023-08-25 03:00] VITALS: BP 123/70; PULSE 80; RESP 16
[2023-08-25] MEDS: diphenhydrAMINE HCL 25 MG CAPSULE PO (03:45)
== END 2023-08-25 03:50 | disposition home or self-care (01) ==
PROVIDERS: Emergency Provider Emergency Medicine Emergency Medical Services
DX: K64.8 Other hemorrhoids (principal); L29.9 Pruritus, unspecified; F03.90 Unspecified dementia, unspecified severity, without behavioral disturbance, psychotic disturbance, mood disturbance, and anxiety; Z79.899 Other long term (current) drug therapy
CPT/HCPCS: 99283; 99284

== ENCOUNTER 2023-08-26 00:40 | Emergency (ER) | payer OTHER, SELFPAY ==
[2023-08-26 01:04] VITALS: BP 142/82; PULSE 90; RESP 16; TEMP 36.9; O2SAT 97; BMI 26.6
--- NOTE | 2023-08-26 01:26 | PC.NURSE ---
MD spoke with patient in triage, pt back out to waiting room
--- NOTE | 2023-08-26 01:27 | ED_ITS ---
HPI - Anxiety General Chief Complaint: Anxiety Stated Complaint: Anxiety. 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 give me the medications and I will leave you alone. She has no SI/HI. This is her typical presentation. MD complaint: anxiety Onset (ago): year(s) Symptoms: sense of impending doom Severity: mild Quality: intermittent Place: home History of similar episodes: Yes Provoking factors: none known Relieving factors: medication Exacerbating factors: nothing Associated symptoms: denies other symptoms Related Data Home Medications Medication Instructions Recorded Confirmed alprazolam 0.5 mg tablet 0.5 mg PO TID PRN Anxiety 08/09/20 02/06/23 aripiprazole 2 mg tablet 2 mg PO BEDTIME 08/09/20 02/06/23 cholecalciferol (vitamin D3) 25 25 mcg PO BID 08/09/20 02/06/23 mcg (1,000 unit) tablet hydroxyzine HCl 50 mg tablet 50 mg PO TID PRN Anxiety 08/09/20 02/06/23 linaclotide 145 mcg capsule 145 mcg PO DAILY 08/09/20 02/06/23 mirtazapine 45 mg tablet 45 mg PO BEDTIME 08/09/20 02/06/23 multivitamin 1 cap PO DAILY 08/09/20 02/06/23 omeprazole 20 mg tablet,delayed 20 mg PO DAILY 08/09/20 02/06/23 release sertraline 50 mg tablet 50 mg PO BEDTIME 08/09/20 02/06/23 Previous Rx's Medication Instructions Recorded escitalopram oxalate 10 mg tablet 10 mg PO DAILY #30 tabs 09/06/20 acetaminophen 325 mg capsule 325 mg PO QID PRN fever or pain 09/16/20 #30 caps aspirin 81 mg tablet,delayed 81 mg PO BEDTIME #90 tabs 09/28/20 release metoprolol succinate 50 mg 50 mg PO DAILY #90 tabs 09/28/20 tablet,extended release 24 hr menthol 0.44 %-zinc oxide 20.6 % 1 appl topical QID PRN skin 12/13/20 topical ointment (Calmoseptine) irritation #113 grams magnesium citrate 150 ml PO DAILY PRN constipation 12/14/20 #296 mL diphenhydramine HCl 25 mg capsule 25 mg PO BEDTIME insomnia #7 caps 12/25/20 (Benadryl) melatonin 10 mg tablet,extended 10 mg PO .nightly #5 tabs 01/07/21 release cefdinir 300 mg capsule 300 mg PO BID Otitis media 10 days 04/14/21 #20 caps ondansetron HCl 4 mg tablet 4 mg PO Q8H PRN nausea and 04/14/21 (Zofran) vomiting #14 tabs metoprolol succinate 50 mg 50 mg PO DAILY #14 tabs 05/22/21 tablet,extended release 24 hr ciprofloxacin 0.3 %-dexamethasone 4 drp otic (ears) BID 7 days 05/26/21 0.1 % ear drops,suspension (Ciprodex) polyethylene glycol 3350 17 17 g PO DAILY PRN constipation 07/31/21 gram/dose oral powder (Miralax) #238 grams hydrocortisone acetate 25 mg 25 mg GA BID #12 ea 08/01/21 rectal suppository (Anucort-HC) cefuroxime axetil 500 mg tablet 500 mg PO BID 7 days #14 tabs 09/01/21 meclizine 25 mg tablet 25 mg PO TID PRN dizziness #10 tabs 09/01/21 zolpidem 5 mg tablet (Ambien) 5 mg PO BEDTIME PRN sleep #2 tabs 10/29/21 zolpidem 5 mg tablet (Ambien) 5 mg PO BEDTIME PRN sleep #2 tabs 10/29/21 levofloxacin 500 mg tablet 500 mg PO DAILY 7 days #7 tabs 07/23/22 levofloxacin 500 mg tablet 500 mg PO DAILY #6 tabs 08/25/22 ofloxacin 0.3 % ear drops 10 drp otic (ears) DAILY 7 days #5 08/25/22 mL hydrocortisone 2.5 % topical cream 1 appl GA BEDTIME PRN hemorrhoids 09/20/22 with perineal applicator #30 grams docusate sodium 100 mg capsule 100 mg PO BID PRN Constipation #14 12/06/22 (Colace) caps phenylephrine 0.25 %-mineral oil 1 appl GA BID PRN hemorrhoids #56 12/06/22 14 %-petrolatm 74.9 % rectal grams ointment (Hemorrhoidal(phenyleph-min oil-petrolat)) polyethylene glycol 3350 17 17 g PO BID #119 grams 12/06/22 gram/dose oral powder (Miralax) cefuroxime axetil 500 mg tablet 500 mg PO BID 10 days #20 tabs 12/16/22 alprazolam 0.25 mg tablet 0.25 mg PO QID #7 tabs 01/04/23 ofloxacin 0.3 % ear drops 5 drp otic (ear) left BID 7 days 01/06/23 #5 mL alprazolam 0.25 mg tablet 0.25 mg PO TID PRN anxiety #7 tabs 01/11/23 alprazolam 0.25 mg tablet 0.25 mg PO TID PRN anxiety #3 tabs 02/02/23 alprazolam 0.5 mg tablet (Xanax) 0.5 mg PO BEDTIME PRN anxiety #7 04/20/23 tabs metoprolol succinate 50 mg 50 mg PO DAILY #7 tabs 05/18/23 tablet,extended release 24 hr lisinopril 40 mg tablet 40 mg PO QPM #90 tabs 05/22/23 ondansetron 4 mg disintegrating 4 mg PO Q8H PRN nausea and 07/06/23 tablet vomiting #10 tabs hydrocortisone 1 % topical cream 1 appl topical BID PRN rash #28.4 08/03/23 grams phenylephrine 0.25 %-mineral oil 1 appl GA BID PRN hemorrhoids #57 08/17/23 14 %-petrolatm 74.9 % rectal grams ointment (Preparation H) polyethylene glycol 3350 17 17 g PO BID #119 grams 08/17/23 gram/dose oral powder (Miralax) diphenhydramine HCl 25 mg tablet 25 mg PO TID PRN Pruritus #20 tabs 08/25/23 (Benadryl Allergy) phenylephrine 0.25 %-cocoa butter 1 supp GA BID #24 ea 08/25/23 88.44 % rectal suppository (Preparation H(phenyleph,cocoa buttr)) phenylephrine 0.25 %-mineral oil 1 appl GA BID #28 grams 08/25/23 14 %-petrolatm 74.9 % rectal ointment (Preparation H) Allergies Allergy/AdvReac Type Severity Reaction Status Date / Time penicillin G [Penicillin G] Allergy Severe ITCHY/RASH Verified 08/25/23 01:41 Sulfa (Sulfonamide Allergy Severe ITCHY,RASH, Verified 08/25/23 01:41 Antibiotics) rash [Sulfa (Sulfonamides)] trimethoprim [From Bactrim] Allergy Severe HIVES Verified 08/25/23 01:41 penicillin V Allergy Unknown rash Verified 08/25/23 01:41 sulfacetamide Allergy Unknown unknown Verified 08/25/23 01:41 [From Sulfacet-R] sulfur [From Sulfacet-R] Allergy Unknown unknown Verified 08/25/23 01:41 Review of Systems Review of Systems: Constitutional : No Fever, No Chills Cardiovascular : No Chest Pain, No SOB Respiratory : No Cough, No Sputum, No Dyspnea Gastrointestinal : No Nausea, No Vomiting, No Diarrhea, No Hematochezia, No Melena Genitourinary : No Dysuria, No Urinary Frequency, No Hematuria Musculoskeletal : No Myalgias Skin : No Skin Lesions, No rash Neuro : No Weakness, No Numbness, No Paresthesias, No Dizziness, No Headache Psych : positive Anxiety, no Depression, no SI/HI All other systems reviewed and are negative [facility] Past Medical History Attestation statement: The following information was validated with the patient. Source: old records reviewed Medical History Bleeding hemorrhoids Essential hypertension PVC (premature ventricular contraction) PAC (premature atrial contraction) SVT (supraventricular tachycardia) Chronic constipation High blood pressure Vertigo Dementia Arthritis Anxiety Surgical History No pertinent past surgical history Social History Social History Alcohol intake: never Patient Tobacco Use Status: Never used Tobacco Physical Exam Vital Signs: Vital Signs: Last Vital Signs Temp 98.5 F 08/26/23 01:04 Pulse 90 08/26/23 01:04 Resp 16 08/26/23 01:04 BP 142/82 H 08/26/23 01:04 Pulse Ox 97 08/26/23 01:04 O2 Del Method Room Air 08/26/23 01:04 BMI result Body Mass Index 26.6 Appearance: Alert. Oriented X3. No acute distress. appears calm and cooperative Eyes: Pupils equal, round and reactive to light. ENT: Pharynx normal. Neck: Normal inspection. Neck supple. CVS: Pulses normal. Respiratory: No respiratory distress. Abdomen: Soft and nontender. Skin: Skin warm and dry. Normal skin color. Extremities: No lower extremity edema. Neuro: Oriented X 3. No motor deficit. No sensory deficit. Medical Decision Making Medical Decision Making MDM Narrative: 77 yo female well known to us hx of HTN, dementia, vertigo - chronic benzo use here again asking for additional benzo dose for panic attack on top her usual dose she did not miss any medications her [employer] has just locked them away. She has stable VS, no distress I am not going to give her any benzodiazepines it is not appropriate to continue to dose her in the ED. She has tolerated benadryl in the past without negative side effects at her age. Differential Diagnosis Differential Diagnoses: The differential diagnosis associated with the presentation includes benzodiazepine use disorder, anxiety Independent Historian Clinical information obtained from an independent historian. History obtained from or confirmed by: EMS External Record Review External record reviewed: Inpatient record Social Determinants Patient?s care significantly limited by Social Determinants of Health including: Problems related to primary support group Discharge Plan Discharge Clinical Impression: Acute anxiety, Panic disorder Patient Disposition: Home, Self-Care Instructions: Panic Disorder (ED) Additional Instructions: please take your medications as prescribed. we cannot continue to extra dose you in the emergency department. please talk to your psychiatrist about this. por favor tome kelsi medicamentos seg?n lo recetado. No podemos continuar administr?ndole dosis adicionales en el departamento de emergencias. por favor hable con clark psiquiatra sobre esto. Prescriptions: No Action escitalopram oxalate 10 mg tablet 10 mg PO DAILY Qty: 30 1RF metoprolol succinate 50 mg tablet extended release 24 hr 50 mg PO DAILY Qty: 90 2RF aspirin 81 mg tablet,delayed release (DR/EC) 81 mg PO BEDTIME Qty: 90 2RF polyethylene glycol 3350 [Miralax] 17 gram/dose powder 17 g PO DAILY PRN (Reason: constipation) Qty: 238 0RF lisinopril 40 mg tablet 40 mg PO QPM Qty: 90 0RF Rx Instructions: Please call and schedule cardiology appt acetaminophen 325 mg capsule 325 mg PO QID PRN (Reason: fever or pain) Qty: 30 0RF melatonin 10 mg tablet extended release 10 mg PO .nightly Qty: 5 0RF metoprolol succinate 50 mg tablet extended release 24 hr 50 mg PO DAILY Qty: 14 0RF ciprofloxacin-dexamethasone [Ciprodex] 0.3-0.1 % drops,suspension 4 drp otic (ears) BID 7 Days 0RF alprazolam 0.5 mg Tablet 0.5 mg PO TID PRN (Reason: Anxiety) hydroxyzine HCl 50 mg Tablet 50 mg PO TID PRN (Reason: Anxiety) mirtazapine 45 mg Tablet 45 mg PO BEDTIME multivitamin Capsule 1 cap PO DAILY sertraline 50 mg Tablet 50 mg PO BEDTIME aripiprazole 2 mg Tablet 2 mg PO BEDTIME cholecalciferol (vitamin D3) 25 mcg (1,000 unit) Tablet 25 mcg PO BID omeprazole 20 mg Tablet,Delayed Release (Dr/Ec) 20 mg PO DAILY linaclotide 145 mcg Capsule 145 mcg PO DAILY diphenhydramine HCl [Benadryl] 25 mg capsule 25 mg PO BEDTIME Qty: 7 0RF cefdinir 300 mg capsule 300 mg PO BID 10 Days Qty: 20 0RF ondansetron HCl [Zofran] 4 mg tablet 4 mg PO Q8H PRN (Reason: nausea and vomiting) Qty: 14 0RF cefuroxime axetil 500 mg tablet 500 mg PO BID 7 Days Qty: 14 0RF meclizine 25 mg tablet 25 mg PO TID PRN (Reason: dizziness) Qty: 10 0RF levofloxacin 500 mg tablet 500 mg PO DAILY 7 Days Qty: 7 0RF cefuroxime axetil 500 mg tablet 500 mg PO BID 10 Days Qty: 20 0RF alprazolam 0.25 mg tablet 0.25 mg PO QID Qty: 7 0RF levofloxacin 500 mg tablet 500 mg PO DAILY Qty: 6 0RF Rx Instructions: start on 08/26 ofloxacin 0.3 % drops 10 drp otic (ears) DAILY 7 Days Qty: 5 0RF Rx Instructions: can substitute eye drops if necessary hydrocortisone 2.5 % cream with perineal applicator 1 appl GA BEDTIME PRN (Reason: hemorrhoids) Qty: 30 0RF Hemorrhoidal(PE-min oil-emam) 0.25-14-74.9 % ointment 1 appl GA BID PRN (Reason: hemorrhoids) Qty: 56 0RF polyethylene glycol 3350 [Miralax] 17 gram/dose powder 17 g PO BID Qty: 119 0RF docusate sodium [Colace] 100 mg capsule 100 mg PO BID PRN (Reason: Constipation) Qty: 14 0RF ofloxacin 0.3 % drops 5 drp otic (ear) left BID 7 Days Qty: 5 0RF alprazolam 0.25 mg tablet 0.25 mg PO TID PRN (Reason: anxiety) Qty: 7 0RF alprazolam [Xanax] 0.5 mg tablet 0.5 mg PO BEDTIME PRN (Reason: anxiety) Qty: 7 0RF metoprolol succinate 50 mg tablet extended release 24 hr 50 mg PO DAILY Qty: 7 0RF Preparation H 0.25-14-74.9 % ointment 1 appl GA BID PRN (Reason: hemorrhoids) Qty: 57 0RF polyethylene glycol 3350 [Miralax] 17 gram/dose powder 17 g PO BID Qty: 119 0RF Preparation H 0.25-14-74.9 % ointment 1 appl GA BID Qty: 28 0RF Preparation H(pe,cb) 0.25-88.44 % suppository 1 supp GA BID Qty: 24 0RF diphenhydramine HCl [Benadryl Allergy] 25 mg tablet 25 mg PO TID PRN (Reason: Pruritus) Qty: 20 0RF alprazolam 0.25 mg tablet 0.25 mg PO TID PRN (Reason: anxiety) Qty: 3 0RF ondansetron 4 mg tablet,disintegrating 4 mg PO Q8H PRN (Reason: nausea and vomiting) Qty: 10 0RF hydrocortisone 1 % cream 1 appl topical BID PRN (Reason: rash) Qty: 28.4 0RF Calmoseptine 0.44-20.6 % ointment 1 appl topical QID PRN (Reason: skin irritation) Qty: 113 0RF magnesium citrate Solution 150 ml PO DAILY PRN (Reason: constipation) Qty: 296 0RF Rx Instructions: take only when needed for constipation hydrocortisone acetate [Anucort-HC] 25 mg suppository 25 mg GA BID Qty: 12 3RF zolpidem [Ambien] 5 mg tablet 5 mg PO BEDTIME PRN (Reason: sleep) Qty: 2 0RF zolpidem [Ambien] 5 mg tablet 5 mg PO BEDTIME PRN (Reason: sleep) Qty: 2 0RF Print Language: Citizen [place]
[2023-08-26] MEDS: diphenhydrAMINE HCL 25 MG CAPSULE PO (01:35)
== END 2023-08-26 01:38 | disposition home or self-care (01) ==
PROVIDERS: Emergency Provider Emergency Medicine; PCP Internal Medicine Geriatric Medicine
DX: F41.9 Anxiety disorder, unspecified (principal); F41.0 Panic disorder [episodic paroxysmal anxiety]; Z76.5 Malingerer [conscious simulation]; I10 Essential (primary) hypertension; Z79.899 Other long term (current) drug therapy; Z79.82 Long term (current) use of aspirin
CPT/HCPCS: 99282; 99283

== ENCOUNTER 2023-08-26 05:50 | Emergency (ER) | payer OTHER, SELFPAY ==
[2023-08-26 05:56] VITALS: BP 160/88; BP 165/72; PULSE 88; PULSE 95; RESP 16; TEMP 36.9; O2SAT 97; BMI 26.5
--- NOTE | 2023-08-26 06:33 | ED.GENADULT ---
HPI - General Adult General Chief complaint: General Medical Stated complaint: malaise Time Seen by Provider: 08/26/23 06:31 Source: patient, RN notes reviewed and old records reviewed Mode of arrival: ambulatory History of Present Illness HPI narrative: 77 year female history HTN, PVCs, PACs and SVT, HTN vertigo, dementia, arthritis, chronic benzo use, presenting to the ED complaining of acute anxiety requesting her home anxiolytic. 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 Denies SI/HI. Patient was seen and treated in our ED at 01:27AM for similar complaints, given Benadryl at that time Related Data Home Medications Medication Instructions Recorded Confirmed alprazolam 0.5 mg tablet 0.5 mg PO TID PRN Anxiety 08/09/20 02/06/23 aripiprazole 2 mg tablet 2 mg PO BEDTIME 08/09/20 02/06/23 cholecalciferol (vitamin D3) 25 25 mcg PO BID 08/09/20 02/06/23 mcg (1,000 unit) tablet hydroxyzine HCl 50 mg tablet 50 mg PO TID PRN Anxiety 08/09/20 02/06/23 linaclotide 145 mcg capsule 145 mcg PO DAILY 08/09/20 02/06/23 mirtazapine 45 mg tablet 45 mg PO BEDTIME 08/09/20 02/06/23 multivitamin 1 cap PO DAILY 08/09/20 02/06/23 omeprazole 20 mg tablet,delayed 20 mg PO DAILY 08/09/20 02/06/23 release sertraline 50 mg tablet 50 mg PO BEDTIME 08/09/20 02/06/23 Previous Rx's Medication Instructions Recorded escitalopram oxalate 10 mg tablet 10 mg PO DAILY #30 tabs 09/06/20 acetaminophen 325 mg capsule 325 mg PO QID PRN fever or pain 09/16/20 #30 caps aspirin 81 mg tablet,delayed 81 mg PO BEDTIME #90 tabs 09/28/20 release metoprolol succinate 50 mg 50 mg PO DAILY #90 tabs 09/28/20 tablet,extended release 24 hr menthol 0.44 %-zinc oxide 20.6 % 1 appl topical QID PRN skin 12/13/20 topical ointment (Calmoseptine) irritation #113 grams magnesium citrate 150 ml PO DAILY PRN constipation 12/14/20 #296 mL diphenhydramine HCl 25 mg capsule 25 mg PO BEDTIME insomnia #7 caps 12/25/20 (Benadryl) melatonin 10 mg tablet,extended 10 mg PO .nightly #5 tabs 01/07/21 release cefdinir 300 mg capsule 300 mg PO BID Otitis media 10 days 04/14/21 #20 caps ondansetron HCl 4 mg tablet 4 mg PO Q8H PRN nausea and 04/14/21 (Zofran) vomiting #14 tabs metoprolol succinate 50 mg 50 mg PO DAILY #14 tabs 05/22/21 tablet,extended release 24 hr ciprofloxacin 0.3 %-dexamethasone 4 drp otic (ears) BID 7 days 05/26/21 0.1 % ear drops,suspension (Ciprodex) polyethylene glycol 3350 17 17 g PO DAILY PRN constipation 07/31/21 gram/dose oral powder (Miralax) #238 grams hydrocortisone acetate 25 mg 25 mg FL BID #12 ea 08/01/21 rectal suppository (Anucort-HC) cefuroxime axetil 500 mg tablet 500 mg PO BID 7 days #14 tabs 09/01/21 meclizine 25 mg tablet 25 mg PO TID PRN dizziness #10 tabs 09/01/21 zolpidem 5 mg tablet (Ambien) 5 mg PO BEDTIME PRN sleep #2 tabs 10/29/21 zolpidem 5 mg tablet (Ambien) 5 mg PO BEDTIME PRN sleep #2 tabs 10/29/21 levofloxacin 500 mg tablet 500 mg PO DAILY 7 days #7 tabs 07/23/22 levofloxacin 500 mg tablet 500 mg PO DAILY #6 tabs 08/25/22 ofloxacin 0.3 % ear drops 10 drp otic (ears) DAILY 7 days #5 08/25/22 mL hydrocortisone 2.5 % topical cream 1 appl FL BEDTIME PRN hemorrhoids 09/20/22 with perineal applicator #30 grams docusate sodium 100 mg capsule 100 mg PO BID PRN Constipation #14 12/06/22 (Colace) caps phenylephrine 0.25 %-mineral oil 1 appl FL BID PRN hemorrhoids #56 12/06/22 14 %-petrolatm 74.9 % rectal grams ointment (Hemorrhoidal(phenyleph-min oil-petrolat)) polyethylene glycol 3350 17 17 g PO BID #119 grams 12/06/22 gram/dose oral powder (Miralax) cefuroxime axetil 500 mg tablet 500 mg PO BID 10 days #20 tabs 12/16/22 alprazolam 0.25 mg tablet 0.25 mg PO QID #7 tabs 01/04/23 ofloxacin 0.3 % ear drops 5 drp otic (ear) left BID 7 days 01/06/23 #5 mL alprazolam 0.25 mg tablet 0.25 mg PO TID PRN anxiety #7 tabs 01/11/23 alprazolam 0.25 mg tablet 0.25 mg PO TID PRN anxiety #3 tabs 02/02/23 alprazolam 0.5 mg tablet (Xanax) 0.5 mg PO BEDTIME PRN anxiety #7 04/20/23 tabs metoprolol succinate 50 mg 50 mg PO DAILY #7 tabs 05/18/23 tablet,extended release 24 hr lisinopril 40 mg tablet 40 mg PO QPM #90 tabs 05/22/23 ondansetron 4 mg disintegrating 4 mg PO Q8H PRN nausea and 07/06/23 tablet vomiting #10 tabs hydrocortisone 1 % topical cream 1 appl topical BID PRN rash #28.4 08/03/23 grams phenylephrine 0.25 %-mineral oil 1 appl FL BID PRN hemorrhoids #57 08/17/23 14 %-petrolatm 74.9 % rectal grams ointment (Preparation H) polyethylene glycol 3350 17 17 g PO BID #119 grams 08/17/23 gram/dose oral powder (Miralax) diphenhydramine HCl 25 mg tablet 25 mg PO TID PRN Pruritus #20 tabs 08/25/23 (Benadryl Allergy) phenylephrine 0.25 %-cocoa butter 1 supp FL BID #24 ea 08/25/23 88.44 % rectal suppository (Preparation H(phenyleph,cocoa buttr)) phenylephrine 0.25 %-mineral oil 1 appl FL BID #28 grams 08/25/23 14 %-petrolatm 74.9 % rectal ointment (Preparation H) Allergies Allergy/AdvReac Type Severity Reaction Status Date / Time penicillin G [Penicillin G] Allergy Severe ITCHY/RASH Verified 08/25/23 01:41 Sulfa (Sulfonamide Allergy Severe ITCHY,RASH, Verified 08/25/23 01:41 Antibiotics) rash [Sulfa (Sulfonamides)] trimethoprim [From Bactrim] Allergy Severe HIVES Verified 08/25/23 01:41 penicillin V Allergy Unknown rash Verified 08/25/23 01:41 sulfacetamide Allergy Unknown unknown Verified 08/25/23 01:41 [From Sulfacet-R] sulfur [From Sulfacet-R] Allergy Unknown unknown Verified 08/25/23 01:41 Review of Systems Review of Systems: Constitutional: No Fever, No Chills, No Fatigue, No Malaise ENT/Mouth: No Ear Pain, No Nasal Congestion, No sore throat, No Rhinorrhea, No Swallowing Difficulty Eyes: No Eye Pain, No Swelling, No Vision Changes Cardiovascular: No Chest Pain, No SOB Respiratory: No Cough, No Sputum, No Dyspnea Gastrointestinal: No Nausea, No Vomiting, No Diarrhea, No Constipation, No Abdominal pain, Skin: No Skin Lesions, No rash Neuro: No Weakness, No Headache Psych: +Anxiety/Panic, No Depression, No SI/HI Yes all other systems are reviewed and are negative Constitutional: Constitutional: Reports as per [facility] Past Medical History Attestation statement: The following information was validated with the patient. Source: old records reviewed Medical History Bleeding hemorrhoids Essential hypertension PVC (premature ventricular contraction) PAC (premature atrial contraction) SVT (supraventricular tachycardia) Chronic constipation High blood pressure Vertigo Dementia Arthritis Anxiety Surgical History No pertinent past surgical history Social History Social History Alcohol intake: never Patient Tobacco Use Status: Never used Tobacco Smoked in Last 30 Days: No Use of substances other than those prescribed or required for medical reasons: No Advance Directives: No Advance Directives Information Provided: Yes Physical Exam ED Vital Signs: Vital Signs - 24 hr 08/26/23 05:56 08/26/23 06:36 Temperature 98.5 F Pulse Rate 95 83 Respiratory Rate 16 18 Blood Pressure 165/72 H 144/87 H Pulse Oximetry 97 98 Oxygen Delivery Method Room Air Room Air BMI result Body Mass Index 26.5 Const General: cooperative, healthy appearing and no acute distress Orientation/consciousness: patient oriented x3 Limitations: no limitations HENMT Head: Yes normal to inspection and Yes atraumatic Ears: hearing grossly normal bilaterally General nose exam: Normal external nose present Face and sinus: Yes normal facial exam Eyes General: appearance normal, both eyes and all related structures EOM: EOMs intact bilaterally Neck Neck: Yes normal visual inspection and Yes no meningeal signs Resp Effort & Inspection: normal respiratory effort and no respiratory distress Cardio Rate: regular rate Skin Rashes: no rashes Wounds: no wounds Neuro General: patient oriented x3, gait normal, tone normal, moves all extremities and no meningeal signs Cranial nerves: Yes CN's II-XII intact bilaterally Gait exam (Neuro): Normal gait present Extrem General: Yes normal to inspection Medical Decision Making Medical Decision Making MDM Narrative: 77 year female history HTN, PVCs, PACs and SVT, HTN vertigo, dementia, arthritis, chronic benzo use, presenting to the ED complaining of acute anxiety requesting her home anxiolytic. On exam vital signs stable, NAD, nontoxic appearing. Concerns or benzodiazepine/medication misuse. Low suspicion for ACS. Per [facility] patient filled 28 pills of Xanax on 08/19/23. 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 States she needs to take her medications appropriately in follow-up with her doctor. Results discussed with patient including worrisome signs and symptoms and strict return precautions, and when to return to the emergency department. They verbalized understanding and feel safe for discharge at this time. Differential Diagnosis Differential Diagnoses: The differential diagnosis associated with the presentation includes As above External Record Review External record reviewed: Inpatient record, Office record, Outpatient record, Prior outpatient labs, Prior outpatient radiology, Primary care record and Outside ED record Tests considered The following testing was considered but not selected: As above Chronic Conditions Patient?s care impacted by: Other Discharge Plan Discharge Clinical Impression: Acute anxiety Patient Disposition: Home, Self-Care Instructions: Anxiety (ED) Additional Instructions: Continue taking her prescribed medications Follow-up with your doctor Continuar tomando los medicamentos recetados. Seguimiento con clark m?dico Prescriptions: No Action escitalopram oxalate 10 mg tablet 10 mg PO DAILY Qty: 30 1RF metoprolol succinate 50 mg tablet extended release 24 hr 50 mg PO DAILY Qty: 90 2RF aspirin 81 mg tablet,delayed release (DR/EC) 81 mg PO BEDTIME Qty: 90 2RF polyethylene glycol 3350 [Miralax] 17 gram/dose powder 17 g PO DAILY PRN (Reason: constipation) Qty: 238 0RF lisinopril 40 mg tablet 40 mg PO QPM Qty: 90 0RF Rx Instructions: Please call and schedule cardiology appt acetaminophen 325 mg capsule 325 mg PO QID PRN (Reason: fever or pain) Qty: 30 0RF melatonin 10 mg tablet extended release 10 mg PO .nightly Qty: 5 0RF metoprolol succinate 50 mg tablet extended release 24 hr 50 mg PO DAILY Qty: 14 0RF ciprofloxacin-dexamethasone [Ciprodex] 0.3-0.1 % drops,suspension 4 drp otic (ears) BID 7 Days 0RF alprazolam 0.5 mg Tablet 0.5 mg PO TID PRN (Reason: Anxiety) hydroxyzine HCl 50 mg Tablet 50 mg PO TID PRN (Reason: Anxiety) mirtazapine 45 mg Tablet 45 mg PO BEDTIME multivitamin Capsule 1 cap PO DAILY sertraline 50 mg Tablet 50 mg PO BEDTIME aripiprazole 2 mg Tablet 2 mg PO BEDTIME cholecalciferol (vitamin D3) 25 mcg (1,000 unit) Tablet 25 mcg PO BID omeprazole 20 mg Tablet,Delayed Release (Dr/Ec) 20 mg PO DAILY linaclotide 145 mcg Capsule 145 mcg PO DAILY diphenhydramine HCl [Benadryl] 25 mg capsule 25 mg PO BEDTIME Qty: 7 0RF cefdinir 300 mg capsule 300 mg PO BID 10 Days Qty: 20 0RF ondansetron HCl [Zofran] 4 mg tablet 4 mg PO Q8H PRN (Reason: nausea and vomiting) Qty: 14 0RF cefuroxime axetil 500 mg tablet 500 mg PO BID 7 Days Qty: 14 0RF meclizine 25 mg tablet 25 mg PO TID PRN (Reason: dizziness) Qty: 10 0RF levofloxacin 500 mg tablet 500 mg PO DAILY 7 Days Qty: 7 0RF cefuroxime axetil 500 mg tablet 500 mg PO BID 10 Days Qty: 20 0RF alprazolam 0.25 mg tablet 0.25 mg PO QID Qty: 7 0RF levofloxacin 500 mg tablet 500 mg PO DAILY Qty: 6 0RF Rx Instructions: start on 08/26 ofloxacin 0.3 % drops 10 drp otic (ears) DAILY 7 Days Qty: 5 0RF Rx Instructions: can substitute eye drops if necessary hydrocortisone 2.5 % cream with perineal applicator 1 appl FL BEDTIME PRN (Reason: hemorrhoids) Qty: 30 0RF Hemorrhoidal(PE-min oil-emma) 0.25-14-74.9 % ointment 1 appl FL BID PRN (Reason: hemorrhoids) Qty: 56 0RF polyethylene glycol 3350 [Miralax] 17 gram/dose powder 17 g PO BID Qty: 119 0RF docusate sodium [Colace] 100 mg capsule 100 mg PO BID PRN (Reason: Constipation) Qty: 14 0RF ofloxacin 0.3 % drops 5 drp otic (ear) left BID 7 Days Qty: 5 0RF alprazolam 0.25 mg tablet 0.25 mg PO TID PRN (Reason: anxiety) Qty: 7 0RF alprazolam [Xanax] 0.5 mg tablet 0.5 mg PO BEDTIME PRN (Reason: anxiety) Qty: 7 0RF metoprolol succinate 50 mg tablet extended release 24 hr 50 mg PO DAILY Qty: 7 0RF Preparation H 0.25-14-74.9 % ointment 1 appl FL BID PRN (Reason: hemorrhoids) Qty: 57 0RF polyethylene glycol 3350 [Miralax] 17 gram/dose powder 17 g PO BID Qty: 119 0RF Preparation H 0.25-14-74.9 % ointment 1 appl FL BID Qty: 28 0RF Preparation H(pe,cb) 0.25-88.44 % suppository 1 supp FL BID Qty: 24 0RF diphenhydramine HCl [Benadryl Allergy] 25 mg tablet 25 mg PO TID PRN (Reason: Pruritus) Qty: 20 0RF alprazolam 0.25 mg tablet 0.25 mg PO TID PRN (Reason: anxiety) Qty: 3 0RF ondansetron 4 mg tablet,disintegrating 4 mg PO Q8H PRN (Reason: nausea and vomiting) Qty: 10 0RF hydrocortisone 1 % cream 1 appl topical BID PRN (Reason: rash) Qty: 28.4 0RF Calmoseptine 0.44-20.6 % ointment 1 appl topical QID PRN (Reason: skin irritation) Qty: 113 0RF magnesium citrate Solution 150 ml PO DAILY PRN (Reason: constipation) Qty: 296 0RF Rx Instructions: take only when needed for constipation hydrocortisone acetate [Anucort-HC] 25 mg suppository 25 mg FL BID Qty: 12 3RF zolpidem [Ambien] 5 mg tablet 5 mg PO BEDTIME PRN (Reason: sleep) Qty: 2 0RF zolpidem [Ambien] 5 mg tablet 5 mg PO BEDTIME PRN (Reason: sleep) Qty: 2 0RF Referrals: [facility] [Outside] Physician,Unknown J [Primary Care Provider] - Print Language: Mauritian
[2023-08-26 06:36] VITALS: BP 144/87; PULSE 83; RESP 18; O2SAT 98
--- NOTE | 2023-08-26 06:37 | PC.NURSE ---
pt TOLU from home reporting high blood pressure. pt reports needing anti anxiety medications because without them her blood pressure goes high. pt reports being seen yesterday here at [facility] and given benedryl. pt respirations even and unlabored, lung sounds clear bilaterally. vss.
--- NOTE | 2023-08-26 06:41 | PC.NURSE ---
provider at bedside discussing pt care.
== END 2023-08-26 06:58 | disposition home or self-care (01) ==
PROVIDERS: Emergency Provider Emergency Medicine Emergency Medical Services
DX: F41.9 Anxiety disorder, unspecified (principal); I10 Essential (primary) hypertension; Z79.899 Other long term (current) drug therapy; Z79.82 Long term (current) use of aspirin
CPT/HCPCS: 99282; 99284

== ENCOUNTER 2023-08-30 06:42 | Emergency (ER) | payer OTHER, SELFPAY ==
[2023-08-30 06:45] VITALS: BP 130/84; BP 138/84; PULSE 81; PULSE 86; RESP 18; TEMP 36.8; O2SAT 98; BMI 26.5
--- NOTE | 2023-08-30 06:50 | ED_ITS ---
HPI - General Adult General Chief complaint: General Medical Stated complaint: Headache/Fever Time Seen by Provider: 08/30/23 06:50 Source: patient and EMS Mode of arrival: EMS Limitations: no limitations History of Present Illness HPI narrative: 77 yo female with history of dementia, HTN, SVT, anxiety who presents to the ER via EMS for evaluation of a possible fever associated with a headache that started yesterday. She states she woke up today feeling very warm and was anxious she had a fever. She did not have a thermometer at home, panicked and called 911. She states her headache started yesteday, she took tylenol and it went away but came back this morning. She denies cough, SOB, chest pain, abdominal pain, N/V/D. She tested negative for COVID at home. MD complaint: headache and possible fever Onset (ago): hour(s) Location: head Radiation: non-radiation Quality: aching Relieving factors: medication Exacerbating factors: none Associated symptoms: headaches and other (anxiety) Treatments prior to arrival: none Related Data Home Medications Medication Instructions Recorded Confirmed alprazolam 0.5 mg tablet 0.5 mg PO TID PRN Anxiety 08/09/20 02/06/23 aripiprazole 2 mg tablet 2 mg PO BEDTIME 08/09/20 02/06/23 cholecalciferol (vitamin D3) 25 25 mcg PO BID 08/09/20 02/06/23 mcg (1,000 unit) tablet hydroxyzine HCl 50 mg tablet 50 mg PO TID PRN Anxiety 08/09/20 02/06/23 linaclotide 145 mcg capsule 145 mcg PO DAILY 08/09/20 02/06/23 mirtazapine 45 mg tablet 45 mg PO BEDTIME 08/09/20 02/06/23 multivitamin 1 cap PO DAILY 08/09/20 02/06/23 omeprazole 20 mg tablet,delayed 20 mg PO DAILY 08/09/20 02/06/23 release sertraline 50 mg tablet 50 mg PO BEDTIME 08/09/20 02/06/23 Previous Rx's Medication Instructions Recorded escitalopram oxalate 10 mg tablet 10 mg PO DAILY #30 tabs 09/06/20 acetaminophen 325 mg capsule 325 mg PO QID PRN fever or pain 09/16/20 #30 caps aspirin 81 mg tablet,delayed 81 mg PO BEDTIME #90 tabs 09/28/20 release metoprolol succinate 50 mg 50 mg PO DAILY #90 tabs 09/28/20 tablet,extended release 24 hr menthol 0.44 %-zinc oxide 20.6 % 1 appl topical QID PRN skin 12/13/20 topical ointment (Calmoseptine) irritation #113 grams magnesium citrate 150 ml PO DAILY PRN constipation 12/14/20 #296 mL diphenhydramine HCl 25 mg capsule 25 mg PO BEDTIME insomnia #7 caps 12/25/20 (Benadryl) melatonin 10 mg tablet,extended 10 mg PO .nightly #5 tabs 01/07/21 release cefdinir 300 mg capsule 300 mg PO BID Otitis media 10 days 04/14/21 #20 caps ondansetron HCl 4 mg tablet 4 mg PO Q8H PRN nausea and 04/14/21 (Zofran) vomiting #14 tabs metoprolol succinate 50 mg 50 mg PO DAILY #14 tabs 05/22/21 tablet,extended release 24 hr ciprofloxacin 0.3 %-dexamethasone 4 drp otic (ears) BID 7 days 05/26/21 0.1 % ear drops,suspension (Ciprodex) polyethylene glycol 3350 17 17 g PO DAILY PRN constipation 07/31/21 gram/dose oral powder (Miralax) #238 grams hydrocortisone acetate 25 mg 25 mg CO BID #12 ea 08/01/21 rectal suppository (Anucort-HC) cefuroxime axetil 500 mg tablet 500 mg PO BID 7 days #14 tabs 09/01/21 meclizine 25 mg tablet 25 mg PO TID PRN dizziness #10 tabs 09/01/21 zolpidem 5 mg tablet (Ambien) 5 mg PO BEDTIME PRN sleep #2 tabs 10/29/21 zolpidem 5 mg tablet (Ambien) 5 mg PO BEDTIME PRN sleep #2 tabs 10/29/21 levofloxacin 500 mg tablet 500 mg PO DAILY 7 days #7 tabs 07/23/22 levofloxacin 500 mg tablet 500 mg PO DAILY #6 tabs 08/25/22 ofloxacin 0.3 % ear drops 10 drp otic (ears) DAILY 7 days #5 08/25/22 mL hydrocortisone 2.5 % topical cream 1 appl CO BEDTIME PRN hemorrhoids 09/20/22 with perineal applicator #30 grams docusate sodium 100 mg capsule 100 mg PO BID PRN Constipation #14 12/06/22 (Colace) caps phenylephrine 0.25 %-mineral oil 1 appl CO BID PRN hemorrhoids #56 12/06/22 14 %-petrolatm 74.9 % rectal grams ointment (Hemorrhoidal(phenyleph-min oil-petrolat)) polyethylene glycol 3350 17 17 g PO BID #119 grams 12/06/22 gram/dose oral powder (Miralax) cefuroxime axetil 500 mg tablet 500 mg PO BID 10 days #20 tabs 12/16/22 alprazolam 0.25 mg tablet 0.25 mg PO QID #7 tabs 01/04/23 ofloxacin 0.3 % ear drops 5 drp otic (ear) left BID 7 days 01/06/23 #5 mL alprazolam 0.25 mg tablet 0.25 mg PO TID PRN anxiety #7 tabs 01/11/23 alprazolam 0.25 mg tablet 0.25 mg PO TID PRN anxiety #3 tabs 02/02/23 alprazolam 0.5 mg tablet (Xanax) 0.5 mg PO BEDTIME PRN anxiety #7 04/20/23 tabs metoprolol succinate 50 mg 50 mg PO DAILY #7 tabs 05/18/23 tablet,extended release 24 hr lisinopril 40 mg tablet 40 mg PO QPM #90 tabs 05/22/23 ondansetron 4 mg disintegrating 4 mg PO Q8H PRN nausea and 07/06/23 tablet vomiting #10 tabs hydrocortisone 1 % topical cream 1 appl topical BID PRN rash #28.4 08/03/23 grams phenylephrine 0.25 %-mineral oil 1 appl CO BID PRN hemorrhoids #57 08/17/23 14 %-petrolatm 74.9 % rectal grams ointment (Preparation H) polyethylene glycol 3350 17 17 g PO BID #119 grams 08/17/23 gram/dose oral powder (Miralax) diphenhydramine HCl 25 mg tablet 25 mg PO TID PRN Pruritus #20 tabs 08/25/23 (Benadryl Allergy) phenylephrine 0.25 %-cocoa butter 1 supp CO BID #24 ea 08/25/23 88.44 % rectal suppository (Preparation H(phenyleph,cocoa buttr)) phenylephrine 0.25 %-mineral oil 1 appl CO BID #28 grams 08/25/23 14 %-petrolatm 74.9 % rectal ointment (Preparation H) Allergies Allergy/AdvReac Type Severity Reaction Status Date / Time penicillin G [Penicillin G] Allergy Severe ITCHY/RASH Verified 08/25/23 01:41 Sulfa (Sulfonamide Allergy Severe ITCHY,RASH, Verified 08/25/23 01:41 Antibiotics) rash [Sulfa (Sulfonamides)] trimethoprim [From Bactrim] Allergy Severe HIVES Verified 08/25/23 01:41 penicillin V Allergy Unknown rash Verified 08/25/23 01:41 sulfacetamide Allergy Unknown unknown Verified 08/25/23 01:41 [From Sulfacet-R] sulfur [From Sulfacet-R] Allergy Unknown unknown Verified 08/25/23 01:41 Review of Systems 2 Review of Systems: Yes all other systems are reviewed and are negative PMFSH Past Medical History Medical History Bleeding hemorrhoids Essential hypertension PVC (premature ventricular contraction) PAC (premature atrial contraction) SVT (supraventricular tachycardia) Chronic constipation High blood pressure Vertigo Dementia Arthritis Anxiety Surgical History No pertinent past surgical history Social History Social History Alcohol intake: never Patient Tobacco Use Status: Never used Tobacco Advance Directives: No Advance Directives Information Provided: Yes Physical Exam ED Vital Signs: Vital Signs - 24 hr 08/30/23 06:45 Temperature 98.3 F Pulse Rate 86 Respiratory Rate 18 Blood Pressure 138/84 Pulse Oximetry 98 Oxygen Delivery Method Room Air BMI result Body Mass Index 26.5 Appearance: Alert. Oriented X3. No acute distress. Head: normocephalic, atraumatic. Eyes: Pupils equal, round and reactive to light. ENT: Pharynx normal. Neck: Normal inspection. Neck supple. CVS: Normal heart rate and rhythm. Pulses normal. Respiratory: No respiratory distress. Breath sounds normal. Skin: Skin warm and dry. Normal skin color. Normal skin turgor. No rashes. Extremities: No lower extremity edema. No joint swelling. Neuro/psych: Oriented X 3. Grossly normal. Normal speech and cognition. Medications Administered Discontinued Medications Generic Name Dose Route Start Last Admin Trade Name Beau PRN Reason Stop Dose Admin Acetaminophen 650 mg 08/30/23 06:52 08/30/23 06:57 Acetaminophen 325 Mg Tablet PO 08/30/23 06:53 650 mg ONCE ONE Administration Medical Decision Making Medical Decision Making MDM Narrative: 77 yo female with history of dementia, anxiety, HTN presenting with headache and concern for fever. afebrile in triage. exam benign headache resolved w/ tylenol and she was given a dose here she is nontoxic appearing with a nonfocal neuro exam. no need for labs and CT scan at this time. she is stable for discharge home with supportive care, return precautions discussed Differential Diagnosis Differential Diagnoses: The differential diagnosis associated with the presentation includes anxiety, covid, flu, viral syndrome, general headache, tension headache, low clinical suspicion for meningitis or encephalitis Admission/Observation Consideration of admission/observation: Escalation of care including admission/observation considered elderly female presenting with headache and subjective fever considered admit on arrival Independent Historian Clinical information obtained from an independent historian. History obtained from or confirmed by: EMS External Record Review External record reviewed: Outpatient record, Prior outpatient labs and Prior outpatient radiology Tests considered The following testing was considered but not selected: considered CT scan and labs but afebrile and nonfocal on exam Prescription Management I considered prescription management with: Pain Medication Chronic Conditions Patient?s care impacted by: Hypertension and Other (anxiety and dementia) Social Determinants Patient?s care significantly limited by Social Determinants of Health including: Problems related to primary support group Critical Care Time Critical Care Time Critical Care Time: No Discharge Plan Discharge Clinical Impression: Headache Qualifiers: Headache type: unspecified Headache chronicity pattern: unspecified pattern Intractability: not intractable Qualified Code(s): R51.9 - Headache, unspecified Patient Disposition: Home, Self-Care Instructions: Acute Headache (DC) Additional Instructions: You had no fever today Rest and drink plenty of fluids Take tylenol or ibuprofen as needed for headaches. Follow up with your doctor If you develop new or worsening symptoms call 911 or come back to the ER for further evaluation. Prescriptions: No Action escitalopram oxalate 10 mg tablet 10 mg PO DAILY Qty: 30 1RF metoprolol succinate 50 mg tablet extended release 24 hr 50 mg PO DAILY Qty: 90 2RF aspirin 81 mg tablet,delayed release (DR/EC) 81 mg PO BEDTIME Qty: 90 2RF polyethylene glycol 3350 [Miralax] 17 gram/dose powder 17 g PO DAILY PRN (Reason: constipation) Qty: 238 0RF lisinopril 40 mg tablet 40 mg PO QPM Qty: 90 0RF Rx Instructions: Please call and schedule cardiology appt acetaminophen 325 mg capsule 325 mg PO QID PRN (Reason: fever or pain) Qty: 30 0RF melatonin 10 mg tablet extended release 10 mg PO .nightly Qty: 5 0RF metoprolol succinate 50 mg tablet extended release 24 hr 50 mg PO DAILY Qty: 14 0RF ciprofloxacin-dexamethasone [Ciprodex] 0.3-0.1 % drops,suspension 4 drp otic (ears) BID 7 Days 0RF alprazolam 0.5 mg Tablet 0.5 mg PO TID PRN (Reason: Anxiety) hydroxyzine HCl 50 mg Tablet 50 mg PO TID PRN (Reason: Anxiety) mirtazapine 45 mg Tablet 45 mg PO BEDTIME multivitamin Capsule 1 cap PO DAILY sertraline 50 mg Tablet 50 mg PO BEDTIME aripiprazole 2 mg Tablet 2 mg PO BEDTIME cholecalciferol (vitamin D3) 25 mcg (1,000 unit) Tablet 25 mcg PO BID omeprazole 20 mg Tablet,Delayed Release (Dr/Ec) 20 mg PO DAILY linaclotide 145 mcg Capsule 145 mcg PO DAILY diphenhydramine HCl [Benadryl] 25 mg capsule 25 mg PO BEDTIME Qty: 7 0RF cefdinir 300 mg capsule 300 mg PO BID 10 Days Qty: 20 0RF ondansetron HCl [Zofran] 4 mg tablet 4 mg PO Q8H PRN (Reason: nausea and vomiting) Qty: 14 0RF cefuroxime axetil 500 mg tablet 500 mg PO BID 7 Days Qty: 14 0RF meclizine 25 mg tablet 25 mg PO TID PRN (Reason: dizziness) Qty: 10 0RF levofloxacin 500 mg tablet 500 mg PO DAILY 7 Days Qty: 7 0RF cefuroxime axetil 500 mg tablet 500 mg PO BID 10 Days Qty: 20 0RF alprazolam 0.25 mg tablet 0.25 mg PO QID Qty: 7 0RF levofloxacin 500 mg tablet 500 mg PO DAILY Qty: 6 0RF Rx Instructions: start on 08/26 ofloxacin 0.3 % drops 10 drp otic (ears) DAILY 7 Days Qty: 5 0RF Rx Instructions: can substitute eye drops if necessary hydrocortisone 2.5 % cream with perineal applicator 1 appl CO BEDTIME PRN (Reason: hemorrhoids) Qty: 30 0RF Hemorrhoidal(PE-min oil-emma) 0.25-14-74.9 % ointment 1 appl CO BID PRN (Reason: hemorrhoids) Qty: 56 0RF polyethylene glycol 3350 [Miralax] 17 gram/dose powder 17 g PO BID Qty: 119 0RF docusate sodium [Colace] 100 mg capsule 100 mg PO BID PRN (Reason: Constipation) Qty: 14 0RF ofloxacin 0.3 % drops 5 drp otic (ear) left BID 7 Days Qty: 5 0RF alprazolam 0.25 mg tablet 0.25 mg PO TID PRN (Reason: anxiety) Qty: 7 0RF alprazolam [Xanax] 0.5 mg tablet 0.5 mg PO BEDTIME PRN (Reason: anxiety) Qty: 7 0RF metoprolol succinate 50 mg tablet extended release 24 hr 50 mg PO DAILY Qty: 7 0RF Preparation H 0.25-14-74.9 % ointment 1 appl CO BID PRN (Reason: hemorrhoids) Qty: 57 0RF polyethylene glycol 3350 [Miralax] 17 gram/dose powder 17 g PO BID Qty: 119 0RF Preparation H 0.25-14-74.9 % ointment 1 appl CO BID Qty: 28 0RF Preparation H(pe,cb) 0.25-88.44 % suppository 1 supp CO BID Qty: 24 0RF diphenhydramine HCl [Benadryl Allergy] 25 mg tablet 25 mg PO TID PRN (Reason: Pruritus) Qty: 20 0RF alprazolam 0.25 mg tablet 0.25 mg PO TID PRN (Reason: anxiety) Qty: 3 0RF ondansetron 4 mg tablet,disintegrating 4 mg PO Q8H PRN (Reason: nausea and vomiting) Qty: 10 0RF hydrocortisone 1 % cream 1 appl topical BID PRN (Reason: rash) Qty: 28.4 0RF Calmoseptine 0.44-20.6 % ointment 1 appl topical QID PRN (Reason: skin irritation) Qty: 113 0RF magnesium citrate Solution 150 ml PO DAILY PRN (Reason: constipation) Qty: 296 0RF Rx Instructions: take only when needed for constipation hydrocortisone acetate [Anucort-HC] 25 mg suppository 25 mg CO BID Qty: 12 3RF zolpidem [Ambien] 5 mg tablet 5 mg PO BEDTIME PRN (Reason: sleep) Qty: 2 0RF zolpidem [Ambien] 5 mg tablet 5 mg PO BEDTIME PRN (Reason: sleep) Qty: 2 0RF Interventions: ED Discharge Assessment Last Done: 08/30/23 06:58 Discharge Date/Time: 08/30/23 06:59
[2023-08-30] MEDS: Acetaminophen 325 MG TABLET 650 MG PO (06:57)
== END 2023-08-30 06:59 | disposition home or self-care (01) ==
PROVIDERS: Emergency Provider Emergency Medicine Emergency Medical Services
DX: R51.9 Headache, unspecified (principal); F41.9 Anxiety disorder, unspecified; I10 Essential (primary) hypertension; F03.90 Unspecified dementia, unspecified severity, without behavioral disturbance, psychotic disturbance, mood disturbance, and anxiety; Z79.899 Other long term (current) drug therapy; Z79.82 Long term (current) use of aspirin
CPT/HCPCS: 99283

== ENCOUNTER 2023-09-01 01:03 | Emergency (ER) | payer OTHER, SELFPAY ==
[2023-09-01 01:07] VITALS: BP 166/68; PULSE 79; RESP 16; TEMP 36.7; O2SAT 98; BMI 31.0
--- NOTE | 2023-09-01 01:41 | ED_ITS ---
HPI - Anxiety General Chief Complaint: Anxiety Stated Complaint: htn anxiety Time Seen by Provider: 09/01/23 01:40 Source: patient Mode of arrival: EMS Limitations: no limitations History of Present Illness HPI narrative: Patient with general anxiety disorder hyper been here 10 times in last 20 days for anxiety unable to get her medication the night but patient does have med box and nurse supporsed to give her medication according to patient nurse did not come tonight and does facies anxiety she has a same kind of complaint every time she comes to the ER which is not true patient also missed her metoprolol blood pressure on arrival was 166/68 with pulse rate of 79 Related Data Home Medications Medication Instructions Recorded Confirmed alprazolam 0.5 mg tablet 0.5 mg PO TID PRN Anxiety 08/09/20 02/06/23 aripiprazole 2 mg tablet 2 mg PO BEDTIME 08/09/20 02/06/23 cholecalciferol (vitamin D3) 25 25 mcg PO BID 08/09/20 02/06/23 mcg (1,000 unit) tablet hydroxyzine HCl 50 mg tablet 50 mg PO TID PRN Anxiety 08/09/20 02/06/23 linaclotide 145 mcg capsule 145 mcg PO DAILY 08/09/20 02/06/23 mirtazapine 45 mg tablet 45 mg PO BEDTIME 08/09/20 02/06/23 multivitamin 1 cap PO DAILY 08/09/20 02/06/23 omeprazole 20 mg tablet,delayed 20 mg PO DAILY 08/09/20 02/06/23 release sertraline 50 mg tablet 50 mg PO BEDTIME 08/09/20 02/06/23 Previous Rx's Medication Instructions Recorded escitalopram oxalate 10 mg tablet 10 mg PO DAILY #30 tabs 09/06/20 acetaminophen 325 mg capsule 325 mg PO QID PRN fever or pain 09/16/20 #30 caps aspirin 81 mg tablet,delayed 81 mg PO BEDTIME #90 tabs 09/28/20 release metoprolol succinate 50 mg 50 mg PO DAILY #90 tabs 09/28/20 tablet,extended release 24 hr menthol 0.44 %-zinc oxide 20.6 % 1 appl topical QID PRN skin 12/13/20 topical ointment (Calmoseptine) irritation #113 grams magnesium citrate 150 ml PO DAILY PRN constipation 12/14/20 #296 mL diphenhydramine HCl 25 mg capsule 25 mg PO BEDTIME insomnia #7 caps 12/25/20 (Benadryl) melatonin 10 mg tablet,extended 10 mg PO .nightly #5 tabs 01/07/21 release cefdinir 300 mg capsule 300 mg PO BID Otitis media 10 days 04/14/21 #20 caps ondansetron HCl 4 mg tablet 4 mg PO Q8H PRN nausea and 04/14/21 (Zofran) vomiting #14 tabs metoprolol succinate 50 mg 50 mg PO DAILY #14 tabs 05/22/21 tablet,extended release 24 hr ciprofloxacin 0.3 %-dexamethasone 4 drp otic (ears) BID 7 days 05/26/21 0.1 % ear drops,suspension (Ciprodex) polyethylene glycol 3350 17 17 g PO DAILY PRN constipation 07/31/21 gram/dose oral powder (Miralax) #238 grams hydrocortisone acetate 25 mg 25 mg [place] BID #12 ea 08/01/21 rectal suppository (Anucort-HC) cefuroxime axetil 500 mg tablet 500 mg PO BID 7 days #14 tabs 09/01/21 meclizine 25 mg tablet 25 mg PO TID PRN dizziness #10 tabs 09/01/21 zolpidem 5 mg tablet (Ambien) 5 mg PO BEDTIME PRN sleep #2 tabs 10/29/21 zolpidem 5 mg tablet (Ambien) 5 mg PO BEDTIME PRN sleep #2 tabs 10/29/21 levofloxacin 500 mg tablet 500 mg PO DAILY 7 days #7 tabs 07/23/22 levofloxacin 500 mg tablet 500 mg PO DAILY #6 tabs 08/25/22 ofloxacin 0.3 % ear drops 10 drp otic (ears) DAILY 7 days #5 08/25/22 mL hydrocortisone 2.5 % topical cream 1 appl [place] BEDTIME PRN hemorrhoids 09/20/22 with perineal applicator #30 grams docusate sodium 100 mg capsule 100 mg PO BID PRN Constipation #14 12/06/22 (Colace) caps phenylephrine 0.25 %-mineral oil 1 appl [place] BID PRN hemorrhoids #56 12/06/22 14 %-petrolatm 74.9 % rectal grams ointment (Hemorrhoidal(phenyleph-min oil-petrolat)) polyethylene glycol 3350 17 17 g PO BID #119 grams 12/06/22 gram/dose oral powder (Miralax) cefuroxime axetil 500 mg tablet 500 mg PO BID 10 days #20 tabs 12/16/22 alprazolam 0.25 mg tablet 0.25 mg PO QID #7 tabs 01/04/23 ofloxacin 0.3 % ear drops 5 drp otic (ear) left BID 7 days 01/06/23 #5 mL alprazolam 0.25 mg tablet 0.25 mg PO TID PRN anxiety #7 tabs 01/11/23 alprazolam 0.25 mg tablet 0.25 mg PO TID PRN anxiety #3 tabs 02/02/23 alprazolam 0.5 mg tablet (Xanax) 0.5 mg PO BEDTIME PRN anxiety #7 04/20/23 tabs metoprolol succinate 50 mg 50 mg PO DAILY #7 tabs 05/18/23 tablet,extended release 24 hr lisinopril 40 mg tablet 40 mg PO QPM #90 tabs 05/22/23 ondansetron 4 mg disintegrating 4 mg PO Q8H PRN nausea and 07/06/23 tablet vomiting #10 tabs hydrocortisone 1 % topical cream 1 appl topical BID PRN rash #28.4 08/03/23 grams phenylephrine 0.25 %-mineral oil 1 appl [place] BID PRN hemorrhoids #57 08/17/23 14 %-petrolatm 74.9 % rectal grams ointment (Preparation H) polyethylene glycol 3350 17 17 g PO BID #119 grams 08/17/23 gram/dose oral powder (Miralax) diphenhydramine HCl 25 mg tablet 25 mg PO TID PRN Pruritus #20 tabs 08/25/23 (Benadryl Allergy) phenylephrine 0.25 %-cocoa butter 1 supp [place] BID #24 ea 08/25/23 88.44 % rectal suppository (Preparation H(phenyleph,cocoa buttr)) phenylephrine 0.25 %-mineral oil 1 appl [place] BID #28 grams 08/25/23 14 %-petrolatm 74.9 % rectal ointment (Preparation H) Allergies Allergy/AdvReac Type Severity Reaction Status Date / Time penicillin G [Penicillin G] Allergy Severe ITCHY/RASH Verified 08/25/23 01:41 Sulfa (Sulfonamide Allergy Severe ITCHY,RASH, Verified 08/25/23 01:41 Antibiotics) rash [Sulfa (Sulfonamides)] trimethoprim [From Bactrim] Allergy Severe HIVES Verified 08/25/23 01:41 penicillin V Allergy Unknown rash Verified 08/25/23 01:41 sulfacetamide Allergy Unknown unknown Verified 08/25/23 01:41 [From Sulfacet-R] sulfur [From Sulfacet-R] Allergy Unknown unknown Verified 08/25/23 01:41 Review of Systems Review of Systems: Yes all other systems are reviewed and are negative [facility] Past Medical History Medical History Bleeding hemorrhoids Essential hypertension PVC (premature ventricular contraction) PAC (premature atrial contraction) SVT (supraventricular tachycardia) Chronic constipation High blood pressure Vertigo Dementia Arthritis Anxiety Surgical History No pertinent past surgical history Social History Social History Alcohol intake: never Patient Tobacco Use Status: Never used Tobacco Physical Exam Vital Signs: Vital Signs: Last Vital Signs Temp 98.0 F 09/01/23 01:07 Pulse 79 09/01/23 01:07 Resp 16 09/01/23 01:07 BP 166/68 H 09/01/23 01:07 Pulse Ox 98 09/01/23 01:07 O2 Del Method Room Air 09/01/23 01:07 BMI result Body Mass Index 31.0 Appearance: Alert. Oriented X3. No acute distress. Anxious Eyes: PERRLA, No Nystagmus ENT: Pharynx normal. Oral Mucosa moist Neck: Normal inspection. Neck supple. CVS: Normal heart rate and rhythm. Pulses normal. Respiratory: No respiratory distress. Equal air entry bilateral, no wheezing/rales/rhonchi Abdomen: Soft and nontender. Bowel sounds are present, no mass palpable, no CVA tenderness Skin: Skin warm and dry. Normal skin color. Normal skin turgor. Extremities: No lower extremity edema. No calf tenderness Neuro: Oriented X 3. No motor deficit. No sensory deficit.No cerebellar signs , cranial nerves II-XII intact Medical Decision Making Medical Decision Making MDM Narrative: Will give Atarax and 25 mg of metoprolol advised to follow with PCP Differential Diagnosis Differential Diagnoses: The differential diagnosis associated with the presentation includes Anxiety/panic attack/somatization Discharge Plan Discharge Clinical Impression: Generalized anxiety disorder with panic attacks Patient Disposition: Home, Self-Care Instructions: Generalized Anxiety Disorder (ED) Additional Instructions: Take medication as prescribed by your PCP and follow-up with them Prescriptions: No Action escitalopram oxalate 10 mg tablet 10 mg PO DAILY Qty: 30 1RF metoprolol succinate 50 mg tablet extended release 24 hr 50 mg PO DAILY Qty: 90 2RF aspirin 81 mg tablet,delayed release (DR/EC) 81 mg PO BEDTIME Qty: 90 2RF polyethylene glycol 3350 [Miralax] 17 gram/dose powder 17 g PO DAILY PRN (Reason: constipation) Qty: 238 0RF lisinopril 40 mg tablet 40 mg PO QPM Qty: 90 0RF Rx Instructions: Please call and schedule cardiology appt acetaminophen 325 mg capsule 325 mg PO QID PRN (Reason: fever or pain) Qty: 30 0RF melatonin 10 mg tablet extended release 10 mg PO .nightly Qty: 5 0RF metoprolol succinate 50 mg tablet extended release 24 hr 50 mg PO DAILY Qty: 14 0RF ciprofloxacin-dexamethasone [Ciprodex] 0.3-0.1 % drops,suspension 4 drp otic (ears) BID 7 Days 0RF alprazolam 0.5 mg Tablet 0.5 mg PO TID PRN (Reason: Anxiety) hydroxyzine HCl 50 mg Tablet 50 mg PO TID PRN (Reason: Anxiety) mirtazapine 45 mg Tablet 45 mg PO BEDTIME multivitamin Capsule 1 cap PO DAILY sertraline 50 mg Tablet 50 mg PO BEDTIME aripiprazole 2 mg Tablet 2 mg PO BEDTIME cholecalciferol (vitamin D3) 25 mcg (1,000 unit) Tablet 25 mcg PO BID omeprazole 20 mg Tablet,Delayed Release (Dr/Ec) 20 mg PO DAILY linaclotide 145 mcg Capsule 145 mcg PO DAILY diphenhydramine HCl [Benadryl] 25 mg capsule 25 mg PO BEDTIME Qty: 7 0RF cefdinir 300 mg capsule 300 mg PO BID 10 Days Qty: 20 0RF ondansetron HCl [Zofran] 4 mg tablet 4 mg PO Q8H PRN (Reason: nausea and vomiting) Qty: 14 0RF cefuroxime axetil 500 mg tablet 500 mg PO BID 7 Days Qty: 14 0RF meclizine 25 mg tablet 25 mg PO TID PRN (Reason: dizziness) Qty: 10 0RF levofloxacin 500 mg tablet 500 mg PO DAILY 7 Days Qty: 7 0RF cefuroxime axetil 500 mg tablet 500 mg PO BID 10 Days Qty: 20 0RF alprazolam 0.25 mg tablet 0.25 mg PO QID Qty: 7 0RF levofloxacin 500 mg tablet 500 mg PO DAILY Qty: 6 0RF Rx Instructions: start on 08/26 ofloxacin 0.3 % drops 10 drp otic (ears) DAILY 7 Days Qty: 5 0RF Rx Instructions: can substitute eye drops if necessary hydrocortisone 2.5 % cream with perineal applicator 1 appl [place] BEDTIME PRN (Reason: hemorrhoids) Qty: 30 0RF Hemorrhoidal(PE-min oil-emma) 0.25-14-74.9 % ointment 1 appl [place] BID PRN (Reason: hemorrhoids) Qty: 56 0RF polyethylene glycol 3350 [Miralax] 17 gram/dose powder 17 g PO BID Qty: 119 0RF docusate sodium [Colace] 100 mg capsule 100 mg PO BID PRN (Reason: Constipation) Qty: 14 0RF ofloxacin 0.3 % drops 5 drp otic (ear) left BID 7 Days Qty: 5 0RF alprazolam 0.25 mg tablet 0.25 mg PO TID PRN (Reason: anxiety) Qty: 7 0RF alprazolam [Xanax] 0.5 mg tablet 0.5 mg PO BEDTIME PRN (Reason: anxiety) Qty: 7 0RF metoprolol succinate 50 mg tablet extended release 24 hr 50 mg PO DAILY Qty: 7 0RF Preparation H 0.25-14-74.9 % ointment 1 appl [place] BID PRN (Reason: hemorrhoids) Qty: 57 0RF polyethylene glycol 3350 [Miralax] 17 gram/dose powder 17 g PO BID Qty: 119 0RF Preparation H 0.25-14-74.9 % ointment 1 appl [place] BID Qty: 28 0RF Preparation H(pe,cb) 0.25-88.44 % suppository 1 supp [place] BID Qty: 24 0RF diphenhydramine HCl [Benadryl Allergy] 25 mg tablet 25 mg PO TID PRN (Reason: Pruritus) Qty: 20 0RF alprazolam 0.25 mg tablet 0.25 mg PO TID PRN (Reason: anxiety) Qty: 3 0RF ondansetron 4 mg tablet,disintegrating 4 mg PO Q8H PRN (Reason: nausea and vomiting) Qty: 10 0RF hydrocortisone 1 % cream 1 appl topical BID PRN (Reason: rash) Qty: 28.4 0RF Calmoseptine 0.44-20.6 % ointment 1 appl topical QID PRN (Reason: skin irritation) Qty: 113 0RF magnesium citrate Solution 150 ml PO DAILY PRN (Reason: constipation) Qty: 296 0RF Rx Instructions: take only when needed for constipation hydrocortisone acetate [Anucort-HC] 25 mg suppository 25 mg [place] BID Qty: 12 3RF zolpidem [Ambien] 5 mg tablet 5 mg PO BEDTIME PRN (Reason: sleep) Qty: 2 0RF zolpidem [Ambien] 5 mg tablet 5 mg PO BEDTIME PRN (Reason: sleep) Qty: 2 0RF
[2023-09-01 02:17] VITALS: BP 156/77; PULSE 77; RESP 16; O2SAT 99
[2023-09-01] MEDS: Metoprolol Tartrate 25 MG TABLET PO (02:19)
[2023-09-01] MEDS: hydrOXYzine HCL 25 MG TABLET PO (02:19)
== END 2023-09-01 02:24 | disposition home or self-care (01) ==
PROVIDERS: Emergency Provider Internal Medicine; PCP Internal Medicine Geriatric Medicine
DX: F41.1 Generalized anxiety disorder (principal); F43.0 Acute stress reaction; F41.0 Panic disorder [episodic paroxysmal anxiety]; I10 Essential (primary) hypertension
CPT/HCPCS: 99283

== ENCOUNTER 2023-09-04 14:29 | Emergency (ER) | payer OTHER, SELFPAY ==
[2023-09-04 14:33] VITALS: BP 150/70; BP 153/77; PULSE 78; PULSE 80; RESP 20; TEMP 37.1; O2SAT 100; O2SAT 98; BMI 27.1
--- NOTE | 2023-09-04 14:38 | ED.PSYCH ---
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 She comes in again today stating she ran out of her anxiety medications and needs meds. Her prescriber is listed as Kwaku Perea NP from [facility]. She was given 0.5mg BID xanax on 09/01 #7 and is already out. She states she cannot get a hold of her doctor and needs more medications now. At this time she is not having tremors she has a prescriber it is she can call and follow up her family is on board to help her. complaint: anxiety Onset (ago): year(s) Duration: intermittent History of same: Yes Relieving factors: medication Exacerbating factors: none Context: other Associated psychiatric symptoms: other (anxiety) Associated symptoms: denies other symptoms Treatments prior to arrival: none Related Data Home Medications Medication Instructions Recorded Confirmed alprazolam 0.5 mg tablet 0.5 mg PO TID PRN Anxiety 08/09/20 02/06/23 aripiprazole 2 mg tablet 2 mg PO BEDTIME 08/09/20 02/06/23 cholecalciferol (vitamin D3) 25 25 mcg PO BID 08/09/20 02/06/23 mcg (1,000 unit) tablet hydroxyzine HCl 50 mg tablet 50 mg PO TID PRN Anxiety 08/09/20 02/06/23 linaclotide 145 mcg capsule 145 mcg PO DAILY 08/09/20 02/06/23 mirtazapine 45 mg tablet 45 mg PO BEDTIME 08/09/20 02/06/23 multivitamin 1 cap PO DAILY 08/09/20 02/06/23 omeprazole 20 mg tablet,delayed 20 mg PO DAILY 08/09/20 02/06/23 release sertraline 50 mg tablet 50 mg PO BEDTIME 08/09/20 02/06/23 Previous Rx's Medication Instructions Recorded escitalopram oxalate 10 mg tablet 10 mg PO DAILY #30 tabs 09/06/20 acetaminophen 325 mg capsule 325 mg PO QID PRN fever or pain 09/16/20 #30 caps aspirin 81 mg tablet,delayed 81 mg PO BEDTIME #90 tabs 09/28/20 release metoprolol succinate 50 mg 50 mg PO DAILY #90 tabs 09/28/20 tablet,extended release 24 hr menthol 0.44 %-zinc oxide 20.6 % 1 appl topical QID PRN skin 12/13/20 topical ointment (Calmoseptine) irritation #113 grams magnesium citrate 150 ml PO DAILY PRN constipation 12/14/20 #296 mL diphenhydramine HCl 25 mg capsule 25 mg PO BEDTIME insomnia #7 caps 12/25/20 (Benadryl) melatonin 10 mg tablet,extended 10 mg PO .nightly #5 tabs 01/07/21 release cefdinir 300 mg capsule 300 mg PO BID Otitis media 10 days 04/14/21 #20 caps ondansetron HCl 4 mg tablet 4 mg PO Q8H PRN nausea and 04/14/21 (Zofran) vomiting #14 tabs metoprolol succinate 50 mg 50 mg PO DAILY #14 tabs 05/22/21 tablet,extended release 24 hr ciprofloxacin 0.3 %-dexamethasone 4 drp otic (ears) BID 7 days 05/26/21 0.1 % ear drops,suspension (Ciprodex) polyethylene glycol 3350 17 17 g PO DAILY PRN constipation 07/31/21 gram/dose oral powder (Miralax) #238 grams hydrocortisone acetate 25 mg 25 mg MO BID #12 ea 08/01/21 rectal suppository (Anucort-HC) cefuroxime axetil 500 mg tablet 500 mg PO BID 7 days #14 tabs 09/01/21 meclizine 25 mg tablet 25 mg PO TID PRN dizziness #10 tabs 09/01/21 zolpidem 5 mg tablet (Ambien) 5 mg PO BEDTIME PRN sleep #2 tabs 10/29/21 zolpidem 5 mg tablet (Ambien) 5 mg PO BEDTIME PRN sleep #2 tabs 10/29/21 levofloxacin 500 mg tablet 500 mg PO DAILY 7 days #7 tabs 07/23/22 levofloxacin 500 mg tablet 500 mg PO DAILY #6 tabs 08/25/22 ofloxacin 0.3 % ear drops 10 drp otic (ears) DAILY 7 days #5 08/25/22 mL hydrocortisone 2.5 % topical cream 1 appl MO BEDTIME PRN hemorrhoids 09/20/22 with perineal applicator #30 grams docusate sodium 100 mg capsule 100 mg PO BID PRN Constipation #14 12/06/22 (Colace) caps phenylephrine 0.25 %-mineral oil 1 appl MO BID PRN hemorrhoids #56 12/06/22 14 %-petrolatm 74.9 % rectal grams ointment (Hemorrhoidal(phenyleph-min oil-petrolat)) polyethylene glycol 3350 17 17 g PO BID #119 grams 12/06/22 gram/dose oral powder (Miralax) cefuroxime axetil 500 mg tablet 500 mg PO BID 10 days #20 tabs 12/16/22 alprazolam 0.25 mg tablet 0.25 mg PO QID #7 tabs 01/04/23 ofloxacin 0.3 % ear drops 5 drp otic (ear) left BID 7 days 01/06/23 #5 mL alprazolam 0.25 mg tablet 0.25 mg PO TID PRN anxiety #7 tabs 01/11/23 alprazolam 0.25 mg tablet 0.25 mg PO TID PRN anxiety #3 tabs 02/02/23 alprazolam 0.5 mg tablet (Xanax) 0.5 mg PO BEDTIME PRN anxiety #7 04/20/23 tabs metoprolol succinate 50 mg 50 mg PO DAILY #7 tabs 05/18/23 tablet,extended release 24 hr lisinopril 40 mg tablet 40 mg PO QPM #90 tabs 05/22/23 ondansetron 4 mg disintegrating 4 mg PO Q8H PRN nausea and 07/06/23 tablet vomiting #10 tabs hydrocortisone 1 % topical cream 1 appl topical BID PRN rash #28.4 08/03/23 grams phenylephrine 0.25 %-mineral oil 1 appl MO BID PRN hemorrhoids #57 08/17/23 14 %-petrolatm 74.9 % rectal grams ointment (Preparation H) polyethylene glycol 3350 17 17 g PO BID #119 grams 08/17/23 gram/dose oral powder (Miralax) diphenhydramine HCl 25 mg tablet 25 mg PO TID PRN Pruritus #20 tabs 08/25/23 (Benadryl Allergy) phenylephrine 0.25 %-cocoa butter 1 supp MO BID #24 ea 08/25/23 88.44 % rectal suppository (Preparation H(phenyleph,cocoa buttr)) phenylephrine 0.25 %-mineral oil 1 appl MO BID #28 grams 08/25/23 14 %-petrolatm 74.9 % rectal ointment (Preparation H) Allergies Allergy/AdvReac Type Severity Reaction Status Date / Time penicillin G [Penicillin G] Allergy Severe ITCHY/RASH Verified 08/25/23 01:41 Sulfa (Sulfonamide Allergy Severe ITCHY,RASH, Verified 08/25/23 01:41 Antibiotics) rash [Sulfa (Sulfonamides)] trimethoprim [From Bactrim] Allergy Severe HIVES Verified 08/25/23 01:41 penicillin V Allergy Unknown rash Verified 08/25/23 01:41 sulfacetamide Allergy Unknown unknown Verified 08/25/23 01:41 [From Sulfacet-R] sulfur [From Sulfacet-R] Allergy Unknown unknown Verified 08/25/23 01:41 Review of Systems Review of Systems: Constitutional : No Fever, No Chills Cardiovascular : No Chest Pain, No SOB Respiratory : No Cough, No Sputum, No Dyspnea Gastrointestinal : No Nausea, No Vomiting, No Diarrhea, No Hematochezia, No Melena Genitourinary : No Dysuria, No Urinary Frequency, No Hematuria Musculoskeletal : No Myalgias Skin : No Skin Lesions, No rash Neuro : No Weakness, No Numbness, No Paresthesias, No Dizziness, No Headache Psych : positive Anxiety, no Depression, no SI/HI All other systems reviewed and are negative [facility] Past Medical History Attestation statement: The following information was validated with the patient. Source: old records reviewed Medical History Bleeding hemorrhoids Essential hypertension PVC (premature ventricular contraction) PAC (premature atrial contraction) SVT (supraventricular tachycardia) Chronic constipation High blood pressure Vertigo Dementia Arthritis Anxiety Surgical History No pertinent past surgical history Social History Social History Alcohol intake: never Patient Tobacco Use Status: Never used Tobacco Advance Directives: No Advance Directives Information Provided: No Physical Exam Vital Signs: Vital Signs: Last Vital Signs Temp 98.8 F 09/04/23 14:33 Pulse 80 09/04/23 14:33 Resp 20 09/04/23 14:33 BP 150/70 H 09/04/23 14:33 Pulse Ox 98 09/04/23 14:33 O2 Del Method Room Air 09/04/23 14:33 BMI result Body Mass Index 27.1 Appearance: Alert. Oriented X3. No acute distress. Eyes: Pupils equal, round and reactive to light. ENT: Pharynx normal. Neck: Normal inspection. Neck supple. CVS: Normal heart rate and rhythm. Pulses normal. Respiratory: No respiratory distress. Breath sounds normal. Abdomen: Soft and nontender. Skin: Skin warm and dry. Normal skin color. Normal skin turgor. Extremities: No lower extremity edema. No calf ttp Neuro: Oriented X 3. No motor deficit. No sensory deficit. Course Course Course Narrative: asked if we could speak to daughter and she states she is at work. so I did attempt to call her daughter but her daughter is at work I did reach her but she is working. I am trying to understand the situation. Family is aware and agrees with the situation. Medical Decision Making Medical Decision Making [facility] Narrative: 77 yo female wiht PMH of vertigo, HTN, cognitive impairment, anxiety with her 12th visit this month for anxiety here again asking for benzos when she has a prescriber has no signs of withdrawal she is not toxic. I have called her daughter who is aware we are not going to prescribe to her. She can call her prescriber we are leaving a message for [facility] as well. At this time no SI/HI. THE PATIENT PROMISED ME ON DISCHARGE WITH BODY STRAIGHTENER PRESENT THAT IF I GAVE HER MORE ALPRAZOLAM THIS TIME SHE WOULD NEVER COME BACK HERE AND TO JUST DO IT ONE MORE TIME. Differential Diagnosis Differential Diagnoses: The differential diagnosis associated with the presentation includes med seeking, anxiety Lab Data [facility] Lab Attestation statement: I reviewed the patient's lab results. External Record Review External record reviewed: Inpatient record Social Determinants Patient?s care significantly limited by Social Determinants of Health including: Other Social Determinant of Health Discharge Plan Discharge Clinical Impression: Generalized anxiety disorder with panic attacks Patient Disposition: Home, Self-Care Instructions: Anxiety (ED) Additional Instructions: you need to go to your psychiatrist. we will no longer be prescribing you anxiety medications in the department you have a prescriber for this. we are here for your other medical needs. tienes que acudir a tu psiquiatra. Ya no le recetaremos medicamentos para la ansiedad en el departamento en el que tiene un prescriptor para esto. Estamos aqu? para kelsi otras necesidades m?dicas. Prescriptions: No Action escitalopram oxalate 10 mg tablet 10 mg PO DAILY Qty: 30 1RF metoprolol succinate 50 mg tablet extended release 24 hr 50 mg PO DAILY Qty: 90 2RF aspirin 81 mg tablet,delayed release (DR/EC) 81 mg PO BEDTIME Qty: 90 2RF polyethylene glycol 3350 [Miralax] 17 gram/dose powder 17 g PO DAILY PRN (Reason: constipation) Qty: 238 0RF lisinopril 40 mg tablet 40 mg PO QPM Qty: 90 0RF Rx Instructions: Please call and schedule cardiology appt acetaminophen 325 mg capsule 325 mg PO QID PRN (Reason: fever or pain) Qty: 30 0RF melatonin 10 mg tablet extended release 10 mg PO .nightly Qty: 5 0RF metoprolol succinate 50 mg tablet extended release 24 hr 50 mg PO DAILY Qty: 14 0RF ciprofloxacin-dexamethasone [Ciprodex] 0.3-0.1 % drops,suspension 4 drp otic (ears) BID 7 Days 0RF alprazolam 0.5 mg Tablet 0.5 mg PO TID PRN (Reason: Anxiety) hydroxyzine HCl 50 mg Tablet 50 mg PO TID PRN (Reason: Anxiety) mirtazapine 45 mg Tablet 45 mg PO BEDTIME multivitamin Capsule 1 cap PO DAILY sertraline 50 mg Tablet 50 mg PO BEDTIME aripiprazole 2 mg Tablet 2 mg PO BEDTIME cholecalciferol (vitamin D3) 25 mcg (1,000 unit) Tablet 25 mcg PO BID omeprazole 20 mg Tablet,Delayed Release (Dr/Ec) 20 mg PO DAILY linaclotide 145 mcg Capsule 145 mcg PO DAILY diphenhydramine HCl [Benadryl] 25 mg capsule 25 mg PO BEDTIME Qty: 7 0RF cefdinir 300 mg capsule 300 mg PO BID 10 Days Qty: 20 0RF ondansetron HCl [Zofran] 4 mg tablet 4 mg PO Q8H PRN (Reason: nausea and vomiting) Qty: 14 0RF cefuroxime axetil 500 mg tablet 500 mg PO BID 7 Days Qty: 14 0RF meclizine 25 mg tablet 25 mg PO TID PRN (Reason: dizziness) Qty: 10 0RF levofloxacin 500 mg tablet 500 mg PO DAILY 7 Days Qty: 7 0RF cefuroxime axetil 500 mg tablet 500 mg PO BID 10 Days Qty: 20 0RF alprazolam 0.25 mg tablet 0.25 mg PO QID Qty: 7 0RF levofloxacin 500 mg tablet 500 mg PO DAILY Qty: 6 0RF Rx Instructions: start on 08/26 ofloxacin 0.3 % drops 10 drp otic (ears) DAILY 7 Days Qty: 5 0RF Rx Instructions: can substitute eye drops if necessary hydrocortisone 2.5 % cream with perineal applicator 1 appl MO BEDTIME PRN (Reason: hemorrhoids) Qty: 30 0RF Hemorrhoidal(PE-min oil-emma) 0.25-14-74.9 % ointment 1 appl MO BID PRN (Reason: hemorrhoids) Qty: 56 0RF polyethylene glycol 3350 [Miralax] 17 gram/dose powder 17 g PO BID Qty: 119 0RF docusate sodium [Colace] 100 mg capsule 100 mg PO BID PRN (Reason: Constipation) Qty: 14 0RF ofloxacin 0.3 % drops 5 drp otic (ear) left BID 7 Days Qty: 5 0RF alprazolam 0.25 mg tablet 0.25 mg PO TID PRN (Reason: anxiety) Qty: 7 0RF alprazolam [Xanax] 0.5 mg tablet 0.5 mg PO BEDTIME PRN (Reason: anxiety) Qty: 7 0RF metoprolol succinate 50 mg tablet extended release 24 hr 50 mg PO DAILY Qty: 7 0RF Preparation H 0.25-14-74.9 % ointment 1 appl MO BID PRN (Reason: hemorrhoids) Qty: 57 0RF polyethylene glycol 3350 [Miralax] 17 gram/dose powder 17 g PO BID Qty: 119 0RF Preparation H 0.25-14-74.9 % ointment 1 appl MO BID Qty: 28 0RF Preparation H(pe,cb) 0.25-88.44 % suppository 1 supp MO BID Qty: 24 0RF diphenhydramine HCl [Benadryl Allergy] 25 mg tablet 25 mg PO TID PRN (Reason: Pruritus) Qty: 20 0RF alprazolam 0.25 mg tablet 0.25 mg PO TID PRN (Reason: anxiety) Qty: 3 0RF ondansetron 4 mg tablet,disintegrating 4 mg PO Q8H PRN (Reason: nausea and vomiting) Qty: 10 0RF hydrocortisone 1 % cream 1 appl topical BID PRN (Reason: rash) Qty: 28.4 0RF Calmoseptine 0.44-20.6 % ointment 1 appl topical QID PRN (Reason: skin irritation) Qty: 113 0RF magnesium citrate Solution 150 ml PO DAILY PRN (Reason: constipation) Qty: 296 0RF Rx Instructions: take only when needed for constipation hydrocortisone acetate [Anucort-HC] 25 mg suppository 25 mg MO BID Qty: 12 3RF zolpidem [Ambien] 5 mg tablet 5 mg PO BEDTIME PRN (Reason: sleep) Qty: 2 0RF zolpidem [Ambien] 5 mg tablet 5 mg PO BEDTIME PRN (Reason: sleep) Qty: 2 0RF Interventions: ED Discharge Assessment Last Done: 09/04/23 15:32 Discharge Date/Time: 09/04/23 15:34 Print Language: Bur[place]
== END 2023-09-04 15:34 | disposition home or self-care (01) ==
LOC: HO.ED 15:23
PROVIDERS: Emergency Provider Emergency Medicine; PCP Internal Medicine Geriatric Medicine
DX: F41.1 Generalized anxiety disorder (principal); F43.0 Acute stress reaction; F41.0 Panic disorder [episodic paroxysmal anxiety]; Z79.899 Other long term (current) drug therapy
CPT/HCPCS: 99282

== ENCOUNTER 2023-09-10 01:29 | Emergency (ER) | payer OTHER, SELFPAY ==
[2023-09-10 01:34] VITALS: BP 130/69; BP 170/84; PULSE 84; PULSE 90; RESP 18; TEMP 36.9; O2SAT 97; BMI 26.5
--- NOTE | 2023-09-10 01:42 | ED_ITS ---
HPI - General Adult General Chief complaint: Anxiety Stated complaint: poor urine output/ malaise Time Seen by Provider: 09/10/23 01:38 Source: patient, RN notes reviewed and old records reviewed Mode of arrival: EMS Limitations: no limitations History of Present Illness HPI narrative: Every 7-year-old female past medical history significant for anxiety, hypertension presents for evaluation of high blood pressure Patient states that she checked her blood pressure at home when it was ?190/130. ? This prompted her to call the ambulance She reports having a history of anxiety and was feeling anxious at the time. At triage, the patient's blood pressure was rechecked and it was found to be 130/69. At this point the patient requested discharge She may lab for a brief examination but denied chest pain, shortness of breath, headache. She reports that she feels well Related Data Home Medications Medication Instructions Recorded Confirmed alprazolam 0.5 mg tablet 0.5 mg PO TID PRN Anxiety 08/09/20 02/06/23 aripiprazole 2 mg tablet 2 mg PO BEDTIME 08/09/20 02/06/23 cholecalciferol (vitamin D3) 25 25 mcg PO BID 08/09/20 02/06/23 mcg (1,000 unit) tablet hydroxyzine HCl 50 mg tablet 50 mg PO TID PRN Anxiety 08/09/20 02/06/23 linaclotide 145 mcg capsule 145 mcg PO DAILY 08/09/20 02/06/23 mirtazapine 45 mg tablet 45 mg PO BEDTIME 08/09/20 02/06/23 multivitamin 1 cap PO DAILY 08/09/20 02/06/23 omeprazole 20 mg tablet,delayed 20 mg PO DAILY 08/09/20 02/06/23 release sertraline 50 mg tablet 50 mg PO BEDTIME 08/09/20 02/06/23 Previous Rx's Medication Instructions Recorded escitalopram oxalate 10 mg tablet 10 mg PO DAILY #30 tabs 09/06/20 acetaminophen 325 mg capsule 325 mg PO QID PRN fever or pain 09/16/20 #30 caps aspirin 81 mg tablet,delayed 81 mg PO BEDTIME #90 tabs 09/28/20 release metoprolol succinate 50 mg 50 mg PO DAILY #90 tabs 09/28/20 tablet,extended release 24 hr menthol 0.44 %-zinc oxide 20.6 % 1 appl topical QID PRN skin 12/13/20 topical ointment (Calmoseptine) irritation #113 grams magnesium citrate 150 ml PO DAILY PRN constipation 12/14/20 #296 mL diphenhydramine HCl 25 mg capsule 25 mg PO BEDTIME insomnia #7 caps 12/25/20 (Benadryl) melatonin 10 mg tablet,extended 10 mg PO .nightly #5 tabs 01/07/21 release cefdinir 300 mg capsule 300 mg PO BID Otitis media 10 days 04/14/21 #20 caps ondansetron HCl 4 mg tablet 4 mg PO Q8H PRN nausea and 04/14/21 (Zofran) vomiting #14 tabs metoprolol succinate 50 mg 50 mg PO DAILY #14 tabs 05/22/21 tablet,extended release 24 hr ciprofloxacin 0.3 %-dexamethasone 4 drp otic (ears) BID 7 days 05/26/21 0.1 % ear drops,suspension (Ciprodex) polyethylene glycol 3350 17 17 g PO DAILY PRN constipation 07/31/21 gram/dose oral powder (Miralax) #238 grams hydrocortisone acetate 25 mg 25 mg TN BID #12 ea 08/01/21 rectal suppository (Anucort-HC) cefuroxime axetil 500 mg tablet 500 mg PO BID 7 days #14 tabs 09/01/21 meclizine 25 mg tablet 25 mg PO TID PRN dizziness #10 tabs 09/01/21 zolpidem 5 mg tablet (Ambien) 5 mg PO BEDTIME PRN sleep #2 tabs 10/29/21 zolpidem 5 mg tablet (Ambien) 5 mg PO BEDTIME PRN sleep #2 tabs 10/29/21 levofloxacin 500 mg tablet 500 mg PO DAILY 7 days #7 tabs 07/23/22 levofloxacin 500 mg tablet 500 mg PO DAILY #6 tabs 08/25/22 ofloxacin 0.3 % ear drops 10 drp otic (ears) DAILY 7 days #5 08/25/22 mL hydrocortisone 2.5 % topical cream 1 appl TN BEDTIME PRN hemorrhoids 09/20/22 with perineal applicator #30 grams docusate sodium 100 mg capsule 100 mg PO BID PRN Constipation #14 12/06/22 (Colace) caps phenylephrine 0.25 %-mineral oil 1 appl TN BID PRN hemorrhoids #56 12/06/22 14 %-petrolatm 74.9 % rectal grams ointment (Hemorrhoidal(phenyleph-min oil-petrolat)) polyethylene glycol 3350 17 17 g PO BID #119 grams 12/06/22 gram/dose oral powder (Miralax) cefuroxime axetil 500 mg tablet 500 mg PO BID 10 days #20 tabs 12/16/22 alprazolam 0.25 mg tablet 0.25 mg PO QID #7 tabs 01/04/23 ofloxacin 0.3 % ear drops 5 drp otic (ear) left BID 7 days 01/06/23 #5 mL alprazolam 0.25 mg tablet 0.25 mg PO TID PRN anxiety #7 tabs 01/11/23 alprazolam 0.25 mg tablet 0.25 mg PO TID PRN anxiety #3 tabs 02/02/23 alprazolam 0.5 mg tablet (Xanax) 0.5 mg PO BEDTIME PRN anxiety #7 04/20/23 tabs metoprolol succinate 50 mg 50 mg PO DAILY #7 tabs 05/18/23 tablet,extended release 24 hr lisinopril 40 mg tablet 40 mg PO QPM #90 tabs 05/22/23 ondansetron 4 mg disintegrating 4 mg PO Q8H PRN nausea and 07/06/23 tablet vomiting #10 tabs hydrocortisone 1 % topical cream 1 appl topical BID PRN rash #28.4 08/03/23 grams phenylephrine 0.25 %-mineral oil 1 appl TN BID PRN hemorrhoids #57 08/17/23 14 %-petrolatm 74.9 % rectal grams ointment (Preparation H) polyethylene glycol 3350 17 17 g PO BID #119 grams 08/17/23 gram/dose oral powder (Miralax) diphenhydramine HCl 25 mg tablet 25 mg PO TID PRN Pruritus #20 tabs 08/25/23 (Benadryl Allergy) phenylephrine 0.25 %-cocoa butter 1 supp TN BID #24 ea 08/25/23 88.44 % rectal suppository (Preparation H(phenyleph,cocoa buttr)) phenylephrine 0.25 %-mineral oil 1 appl TN BID #28 grams 08/25/23 14 %-petrolatm 74.9 % rectal ointment (Preparation H) Allergies Allergy/AdvReac Type Severity Reaction Status Date / Time penicillin G [Penicillin G] Allergy Severe ITCHY/RASH Verified 08/25/23 01:41 Sulfa (Sulfonamide Allergy Severe ITCHY,RASH, Verified 08/25/23 01:41 Antibiotics) rash [Sulfa (Sulfonamides)] trimethoprim [From Bactrim] Allergy Severe HIVES Verified 08/25/23 01:41 penicillin V Allergy Unknown rash Verified 08/25/23 01:41 sulfacetamide Allergy Unknown unknown Verified 08/25/23 01:41 [From Sulfacet-R] sulfur [From Sulfacet-R] Allergy Unknown unknown Verified 08/25/23 01:41 Review of Systems Constitutional: Constitutional: Denies chills and Denies fever(s) Eyes: Eyes: Denies blurry vision Cardiovascular: Cardiovascular: Denies chest pain and Denies dyspnea Respiratory: Respiratory: Denies cough and Denies dyspnea Gastrointestinal: Gastrointestinal: Denies abdominal pain, Denies nausea and D enies vomiting PMFSH Past Medical History Medical History Bleeding hemorrhoids Essential hypertension PVC (premature ventricular contraction) PAC (premature atrial contraction) SVT (supraventricular tachycardia) Chronic constipation High blood pressure Vertigo Dementia Arthritis Anxiety Surgical History No pertinent past surgical history Social History Social History Alcohol intake: never Patient Tobacco Use Status: Never used Tobacco Smoked in Last 30 Days: No Use of substances other than those prescribed or required for medical reasons: No Advance Directives: No Advance Directives Information Provided: No Physical Exam ED Vital Signs: Vital Signs - 24 hr 09/10/23 01:34 Temperature 98.4 F Pulse Rate 84 Respiratory Rate 18 Blood Pressure 130/69 Pulse Oximetry 97 Oxygen Delivery Method Room Air BMI result Body Mass Index 26.5 Const General: healthy appearing, comfortable, no acute distress, alert and awake Nutritional Appearance: well nourished Orientation/consciousness: patient oriented x3 HENMT Head: Yes normocephalic and Yes atraumatic Eyes Eyelids: Yes eyelids normal Conjunctivae: conjunctivae normal Sclerae: sclerae normal Corneas: corneas normal Pupils: Equal, round and reactive pupils present EOM: EOMs intact bilaterally Neck Neck: Yes full ROM Resp Effort & Inspection: normal respiratory effort, able to speak in complete sentences and not labored GI Inspection: No distended Palpation (GI): Soft to palpation, not firm, nontender, no guarding and not rigid Skin General skin exam: elasticity normal Neuro General: patient oriented x3 Cranial nerves: Yes Equal, round and reactive pupils present and Yes Bilaterally intact EOM present Cognition (Neuro): normal cognition Extrem Other: Moving all extremities well without any obvious deformities Medical Decision Making Medical Decision Making MDM Narrative: Patient has no complaints at this time, stable vital signs. She reports that she panicked because her blood pressure reading was high at home. Her blood pressure has returned to normal without any intervention. She has no complaints, she will be discharged. Patient states that she follows up with her PCP later today at an already scheduled point Differential Diagnosis Differential Diagnoses: The differential diagnosis associated with the presentation includes Elevated blood pressure Panic disorder Anxiety Essential hypertension Discharge Plan Discharge Clinical Impression: Essential hypertension Patient Disposition: Home, Self-Care Instructions: Hypertension (ED) Additional Instructions: Take all of your medication as prescribed Prescriptions: No Action escitalopram oxalate 10 mg tablet 10 mg PO DAILY Qty: 30 1RF metoprolol succinate 50 mg tablet extended release 24 hr 50 mg PO DAILY Qty: 90 2RF aspirin 81 mg tablet,delayed release (DR/EC) 81 mg PO BEDTIME Qty: 90 2RF polyethylene glycol 3350 [Miralax] 17 gram/dose powder 17 g PO DAILY PRN (Reason: constipation) Qty: 238 0RF lisinopril 40 mg tablet 40 mg PO QPM Qty: 90 0RF Rx Instructions: Please call and schedule cardiology appt acetaminophen 325 mg capsule 325 mg PO QID PRN (Reason: fever or pain) Qty: 30 0RF melatonin 10 mg tablet extended release 10 mg PO .nightly Qty: 5 0RF metoprolol succinate 50 mg tablet extended release 24 hr 50 mg PO DAILY Qty: 14 0RF ciprofloxacin-dexamethasone [Ciprodex] 0.3-0.1 % drops,suspension 4 drp otic (ears) BID 7 Days 0RF alprazolam 0.5 mg Tablet 0.5 mg PO TID PRN (Reason: Anxiety) hydroxyzine HCl 50 mg Tablet 50 mg PO TID PRN (Reason: Anxiety) mirtazapine 45 mg Tablet 45 mg PO BEDTIME multivitamin Capsule 1 cap PO DAILY sertraline 50 mg Tablet 50 mg PO BEDTIME aripiprazole 2 mg Tablet 2 mg PO BEDTIME cholecalciferol (vitamin D3) 25 mcg (1,000 unit) Tablet 25 mcg PO BID omeprazole 20 mg Tablet,Delayed Release (Dr/Ec) 20 mg PO DAILY linaclotide 145 mcg Capsule 145 mcg PO DAILY diphenhydramine HCl [Benadryl] 25 mg capsule 25 mg PO BEDTIME Qty: 7 0RF cefdinir 300 mg capsule 300 mg PO BID 10 Days Qty: 20 0RF ondansetron HCl [Zofran] 4 mg tablet 4 mg PO Q8H PRN (Reason: nausea and vomiting) Qty: 14 0RF cefuroxime axetil 500 mg tablet 500 mg PO BID 7 Days Qty: 14 0RF meclizine 25 mg tablet 25 mg PO TID PRN (Reason: dizziness) Qty: 10 0RF levofloxacin 500 mg tablet 500 mg PO DAILY 7 Days Qty: 7 0RF cefuroxime axetil 500 mg tablet 500 mg PO BID 10 Days Qty: 20 0RF alprazolam 0.25 mg tablet 0.25 mg PO QID Qty: 7 0RF levofloxacin 500 mg tablet 500 mg PO DAILY Qty: 6 0RF Rx Instructions: start on 08/26 ofloxacin 0.3 % drops 10 drp otic (ears) DAILY 7 Days Qty: 5 0RF Rx Instructions: can substitute eye drops if necessary hydrocortisone 2.5 % cream with perineal applicator 1 appl TN BEDTIME PRN (Reason: hemorrhoids) Qty: 30 0RF Hemorrhoidal(PE-min oil-emma) 0.25-14-74.9 % ointment 1 appl TN BID PRN (Reason: hemorrhoids) Qty: 56 0RF polyethylene glycol 3350 [Miralax] 17 gram/dose powder 17 g PO BID Qty: 119 0RF docusate sodium [Colace] 100 mg capsule 100 mg PO BID PRN (Reason: Constipation) Qty: 14 0RF ofloxacin 0.3 % drops 5 drp otic (ear) left BID 7 Days Qty: 5 0RF alprazolam 0.25 mg tablet 0.25 mg PO TID PRN (Reason: anxiety) Qty: 7 0RF alprazolam [Xanax] 0.5 mg tablet 0.5 mg PO BEDTIME PRN (Reason: anxiety) Qty: 7 0RF metoprolol succinate 50 mg tablet extended release 24 hr 50 mg PO DAILY Qty: 7 0RF Preparation H 0.25-14-74.9 % ointment 1 appl TN BID PRN (Reason: hemorrhoids) Qty: 57 0RF polyethylene glycol 3350 [Miralax] 17 gram/dose powder 17 g PO BID Qty: 119 0RF Preparation H 0.25-14-74.9 % ointment 1 appl TN BID Qty: 28 0RF Preparation H(pe,cb) 0.25-88.44 % suppository 1 supp TN BID Qty: 24 0RF diphenhydramine HCl [Benadryl Allergy] 25 mg tablet 25 mg PO TID PRN (Reason: Pruritus) Qty: 20 0RF alprazolam 0.25 mg tablet 0.25 mg PO TID PRN (Reason: anxiety) Qty: 3 0RF ondansetron 4 mg tablet,disintegrating 4 mg PO Q8H PRN (Reason: nausea and vomiting) Qty: 10 0RF hydrocortisone 1 % cream 1 appl topical BID PRN (Reason: rash) Qty: 28.4 0RF Calmoseptine 0.44-20.6 % ointment 1 appl topical QID PRN (Reason: skin irritation) Qty: 113 0RF magnesium citrate Solution 150 ml PO DAILY PRN (Reason: constipation) Qty: 296 0RF Rx Instructions: take only when needed for constipation hydrocortisone acetate [Anucort-HC] 25 mg suppository 25 mg TN BID Qty: 12 3RF zolpidem [Ambien] 5 mg tablet 5 mg PO BEDTIME PRN (Reason: sleep) Qty: 2 0RF zolpidem [Ambien] 5 mg tablet 5 mg PO BEDTIME PRN (Reason: sleep) Qty: 2 0RF
== END 2023-09-10 01:59 | disposition home or self-care (01) ==
PROVIDERS: Emergency Provider Internal Medicine; PCP Internal Medicine Geriatric Medicine
DX: I10 Essential (primary) hypertension (principal); F41.9 Anxiety disorder, unspecified; F03.90 Unspecified dementia, unspecified severity, without behavioral disturbance, psychotic disturbance, mood disturbance, and anxiety; Z79.899 Other long term (current) drug therapy
CPT/HCPCS: 99282; 99284

== ENCOUNTER 2023-09-12 01:17 | Emergency (ER) | payer OTHER, SELFPAY ==
[2023-09-12 01:38] VITALS: BP 138/78; PULSE 78; O2SAT 97; BMI 26.4
[2023-09-12 01:41] VITALS: BP 131/70; PULSE 85; RESP 17; TEMP 36.9; O2SAT 98
--- NOTE | 2023-09-12 01:45 | PC.NURSE ---
pt does not want to change into hospital attire this time
--- NOTE | 2023-09-12 03:24 | PC.NURSE ---
PT LEFT TO WAITING ROOM AND RETURNED. EDUCATED ON IMPORTANCE OF STAYING IN THE ROOM AND IF REQUESTING TO LEAVE AMA TO LET US KNOW SO WE CAN FOLLOW PROPER PROTOCOL . PT REPORTS THAT SHE UNDERSTANDS
[2023-09-12 03:27] VITALS: BP 131/78; PULSE 81; RESP 16; TEMP 36.8; O2SAT 98
--- NOTE | 2023-09-12 06:35 | PC.NURSE ---
PT ELOPED ED AT THIS TIME
--- NOTE | 2023-09-12 06:37 | ED.GENADULT ---
HPI - General Adult General Chief complaint: General Medical Stated complaint: Body Ache Time Seen by Provider: 09/12/23 06:34 Related Data Home Medications Medication Instructions Recorded Confirmed alprazolam 0.5 mg tablet 0.5 mg PO TID PRN Anxiety 08/09/20 02/06/23 aripiprazole 2 mg tablet 2 mg PO BEDTIME 08/09/20 02/06/23 cholecalciferol (vitamin D3) 25 25 mcg PO BID 08/09/20 02/06/23 mcg (1,000 unit) tablet hydroxyzine HCl 50 mg tablet 50 mg PO TID PRN Anxiety 08/09/20 02/06/23 linaclotide 145 mcg capsule 145 mcg PO DAILY 08/09/20 02/06/23 mirtazapine 45 mg tablet 45 mg PO BEDTIME 08/09/20 02/06/23 multivitamin 1 cap PO DAILY 08/09/20 02/06/23 omeprazole 20 mg tablet,delayed 20 mg PO DAILY 08/09/20 02/06/23 release sertraline 50 mg tablet 50 mg PO BEDTIME 08/09/20 02/06/23 Previous Rx's Medication Instructions Recorded escitalopram oxalate 10 mg tablet 10 mg PO DAILY #30 tabs 09/06/20 acetaminophen 325 mg capsule 325 mg PO QID PRN fever or pain 09/16/20 #30 caps aspirin 81 mg tablet,delayed 81 mg PO BEDTIME #90 tabs 09/28/20 release metoprolol succinate 50 mg 50 mg PO DAILY #90 tabs 09/28/20 tablet,extended release 24 hr menthol 0.44 %-zinc oxide 20.6 % 1 appl topical QID PRN skin 12/13/20 topical ointment (Calmoseptine) irritation #113 grams magnesium citrate 150 ml PO DAILY PRN constipation 12/14/20 #296 mL diphenhydramine HCl 25 mg capsule 25 mg PO BEDTIME insomnia #7 caps 12/25/20 (Benadryl) melatonin 10 mg tablet,extended 10 mg PO .nightly #5 tabs 01/07/21 release cefdinir 300 mg capsule 300 mg PO BID Otitis media 10 days 04/14/21 #20 caps ondansetron HCl 4 mg tablet 4 mg PO Q8H PRN nausea and 04/14/21 (Zofran) vomiting #14 tabs metoprolol succinate 50 mg 50 mg PO DAILY #14 tabs 05/22/21 tablet,extended release 24 hr ciprofloxacin 0.3 %-dexamethasone 4 drp otic (ears) BID 7 days 05/26/21 0.1 % ear drops,suspension (Ciprodex) polyethylene glycol 3350 17 17 g PO DAILY PRN constipation 07/31/21 gram/dose oral powder (Miralax) #238 grams hydrocortisone acetate 25 mg 25 mg GA BID #12 ea 08/01/21 rectal suppository (Anucort-HC) cefuroxime axetil 500 mg tablet 500 mg PO BID 7 days #14 tabs 09/01/21 meclizine 25 mg tablet 25 mg PO TID PRN dizziness #10 tabs 09/01/21 zolpidem 5 mg tablet (Ambien) 5 mg PO BEDTIME PRN sleep #2 tabs 10/29/21 zolpidem 5 mg tablet (Ambien) 5 mg PO BEDTIME PRN sleep #2 tabs 10/29/21 levofloxacin 500 mg tablet 500 mg PO DAILY 7 days #7 tabs 07/23/22 levofloxacin 500 mg tablet 500 mg PO DAILY #6 tabs 08/25/22 ofloxacin 0.3 % ear drops 10 drp otic (ears) DAILY 7 days #5 08/25/22 mL hydrocortisone 2.5 % topical cream 1 appl GA BEDTIME PRN hemorrhoids 09/20/22 with perineal applicator #30 grams docusate sodium 100 mg capsule 100 mg PO BID PRN Constipation #14 12/06/22 (Colace) caps phenylephrine 0.25 %-mineral oil 1 appl GA BID PRN hemorrhoids #56 12/06/22 14 %-petrolatm 74.9 % rectal grams ointment (Hemorrhoidal(phenyleph-min oil-petrolat)) polyethylene glycol 3350 17 17 g PO BID #119 grams 12/06/22 gram/dose oral powder (Miralax) cefuroxime axetil 500 mg tablet 500 mg PO BID 10 days #20 tabs 12/16/22 alprazolam 0.25 mg tablet 0.25 mg PO QID #7 tabs 01/04/23 ofloxacin 0.3 % ear drops 5 drp otic (ear) left BID 7 days 01/06/23 #5 mL alprazolam 0.25 mg tablet 0.25 mg PO TID PRN anxiety #7 tabs 01/11/23 alprazolam 0.25 mg tablet 0.25 mg PO TID PRN anxiety #3 tabs 02/02/23 alprazolam 0.5 mg tablet (Xanax) 0.5 mg PO BEDTIME PRN anxiety #7 04/20/23 tabs metoprolol succinate 50 mg 50 mg PO DAILY #7 tabs 05/18/23 tablet,extended release 24 hr lisinopril 40 mg tablet 40 mg PO QPM #90 tabs 05/22/23 ondansetron 4 mg disintegrating 4 mg PO Q8H PRN nausea and 07/06/23 tablet vomiting #10 tabs hydrocortisone 1 % topical cream 1 appl topical BID PRN rash #28.4 08/03/23 grams phenylephrine 0.25 %-mineral oil 1 appl GA BID PRN hemorrhoids #57 08/17/23 14 %-petrolatm 74.9 % rectal grams ointment (Preparation H) polyethylene glycol 3350 17 17 g PO BID #119 grams 08/17/23 gram/dose oral powder (Miralax) diphenhydramine HCl 25 mg tablet 25 mg PO TID PRN Pruritus #20 tabs 08/25/23 (Benadryl Allergy) phenylephrine 0.25 %-cocoa butter 1 supp GA BID #24 ea 08/25/23 88.44 % rectal suppository (Preparation H(phenyleph,cocoa buttr)) phenylephrine 0.25 %-mineral oil 1 appl GA BID #28 grams 08/25/23 14 %-petrolatm 74.9 % rectal ointment (Preparation H) Allergies Allergy/AdvReac Type Severity Reaction Status Date / Time penicillin G [Penicillin G] Allergy Severe ITCHY/RASH Verified 08/25/23 01:41 Sulfa (Sulfonamide Allergy Severe ITCHY,RASH, Verified 08/25/23 01:41 Antibiotics) rash [Sulfa (Sulfonamides)] trimethoprim [From Bactrim] Allergy Severe HIVES Verified 08/25/23 01:41 penicillin V Allergy Unknown rash Verified 08/25/23 01:41 sulfacetamide Allergy Unknown unknown Verified 08/25/23 01:41 [From Sulfacet-R] sulfur [From Sulfacet-R] Allergy Unknown unknown Verified 08/25/23 01:41 PMFSH Past Medical History Medical History Bleeding hemorrhoids Essential hypertension PVC (premature ventricular contraction) PAC (premature atrial contraction) SVT (supraventricular tachycardia) Chronic constipation High blood pressure Vertigo Dementia Arthritis Anxiety Surgical History No pertinent past surgical history Social History Social History Alcohol intake: never Patient Tobacco Use Status: Never used Tobacco Advance Directives: No Advance Directives Information Provided: Yes Physical Exam ED Vital Signs: Vital Signs - 24 hr 09/12/23 01:41 09/12/23 03:27 Temperature 98.4 F 98.3 F Pulse Rate 85 81 Respiratory Rate 17 16 Blood Pressure 131/70 131/78 Pulse Oximetry 98 98 Oxygen Delivery Method Room Air Room Air BMI result Body Mass Index 26.4 Discharge Plan Discharge Patient Disposition: Elopement Prescriptions: No Action escitalopram oxalate 10 mg tablet 10 mg PO DAILY Qty: 30 1RF metoprolol succinate 50 mg tablet extended release 24 hr 50 mg PO DAILY Qty: 90 2RF aspirin 81 mg tablet,delayed release (DR/EC) 81 mg PO BEDTIME Qty: 90 2RF polyethylene glycol 3350 [Miralax] 17 gram/dose powder 17 g PO DAILY PRN (Reason: constipation) Qty: 238 0RF lisinopril 40 mg tablet 40 mg PO QPM Qty: 90 0RF Rx Instructions: Please call and schedule cardiology appt acetaminophen 325 mg capsule 325 mg PO QID PRN (Reason: fever or pain) Qty: 30 0RF melatonin 10 mg tablet extended release 10 mg PO .nightly Qty: 5 0RF metoprolol succinate 50 mg tablet extended release 24 hr 50 mg PO DAILY Qty: 14 0RF ciprofloxacin-dexamethasone [Ciprodex] 0.3-0.1 % drops,suspension 4 drp otic (ears) BID 7 Days 0RF alprazolam 0.5 mg Tablet 0.5 mg PO TID PRN (Reason: Anxiety) hydroxyzine HCl 50 mg Tablet 50 mg PO TID PRN (Reason: Anxiety) mirtazapine 45 mg Tablet 45 mg PO BEDTIME multivitamin Capsule 1 cap PO DAILY sertraline 50 mg Tablet 50 mg PO BEDTIME aripiprazole 2 mg Tablet 2 mg PO BEDTIME cholecalciferol (vitamin D3) 25 mcg (1,000 unit) Tablet 25 mcg PO BID omeprazole 20 mg Tablet,Delayed Release (Dr/Ec) 20 mg PO DAILY linaclotide 145 mcg Capsule 145 mcg PO DAILY diphenhydramine HCl [Benadryl] 25 mg capsule 25 mg PO BEDTIME Qty: 7 0RF cefdinir 300 mg capsule 300 mg PO BID 10 Days Qty: 20 0RF ondansetron HCl [Zofran] 4 mg tablet 4 mg PO Q8H PRN (Reason: nausea and vomiting) Qty: 14 0RF cefuroxime axetil 500 mg tablet 500 mg PO BID 7 Days Qty: 14 0RF meclizine 25 mg tablet 25 mg PO TID PRN (Reason: dizziness) Qty: 10 0RF levofloxacin 500 mg tablet 500 mg PO DAILY 7 Days Qty: 7 0RF cefuroxime axetil 500 mg tablet 500 mg PO BID 10 Days Qty: 20 0RF alprazolam 0.25 mg tablet 0.25 mg PO QID Qty: 7 0RF levofloxacin 500 mg tablet 500 mg PO DAILY Qty: 6 0RF Rx Instructions: start on 08/26 ofloxacin 0.3 % drops 10 drp otic (ears) DAILY 7 Days Qty: 5 0RF Rx Instructions: can substitute eye drops if necessary hydrocortisone 2.5 % cream with perineal applicator 1 appl GA BEDTIME PRN (Reason: hemorrhoids) Qty: 30 0RF Hemorrhoidal(PE-min oil-emma) 0.25-14-74.9 % ointment 1 appl GA BID PRN (Reason: hemorrhoids) Qty: 56 0RF polyethylene glycol 3350 [Miralax] 17 gram/dose powder 17 g PO BID Qty: 119 0RF docusate sodium [Colace] 100 mg capsule 100 mg PO BID PRN (Reason: Constipation) Qty: 14 0RF ofloxacin 0.3 % drops 5 drp otic (ear) left BID 7 Days Qty: 5 0RF alprazolam 0.25 mg tablet 0.25 mg PO TID PRN (Reason: anxiety) Qty: 7 0RF alprazolam [Xanax] 0.5 mg tablet 0.5 mg PO BEDTIME PRN (Reason: anxiety) Qty: 7 0RF metoprolol succinate 50 mg tablet extended release 24 hr 50 mg PO DAILY Qty: 7 0RF Preparation H 0.25-14-74.9 % ointment 1 appl GA BID PRN (Reason: hemorrhoids) Qty: 57 0RF polyethylene glycol 3350 [Miralax] 17 gram/dose powder 17 g PO BID Qty: 119 0RF Preparation H 0.25-14-74.9 % ointment 1 appl GA BID Qty: 28 0RF Preparation H(pe,cb) 0.25-88.44 % suppository 1 supp GA BID Qty: 24 0RF diphenhydramine HCl [Benadryl Allergy] 25 mg tablet 25 mg PO TID PRN (Reason: Pruritus) Qty: 20 0RF alprazolam 0.25 mg tablet 0.25 mg PO TID PRN (Reason: anxiety) Qty: 3 0RF ondansetron 4 mg tablet,disintegrating 4 mg PO Q8H PRN (Reason: nausea and vomiting) Qty: 10 0RF hydrocortisone 1 % cream 1 appl topical BID PRN (Reason: rash) Qty: 28.4 0RF Calmoseptine 0.44-20.6 % ointment 1 appl topical QID PRN (Reason: skin irritation) Qty: 113 0RF magnesium citrate Solution 150 ml PO DAILY PRN (Reason: constipation) Qty: 296 0RF Rx Instructions: take only when needed for constipation hydrocortisone acetate [Anucort-HC] 25 mg suppository 25 mg GA BID Qty: 12 3RF zolpidem [Ambien] 5 mg tablet 5 mg PO BEDTIME PRN (Reason: sleep) Qty: 2 0RF zolpidem [Ambien] 5 mg tablet 5 mg PO BEDTIME PRN (Reason: sleep) Qty: 2 0RF Discharge Date/Time: 09/12/23 06:36
--- NOTE | 2023-09-12 06:43 | PC.NURSE ---
PT LEFT WITHOUT BEING SEEN
== END 2023-09-12 06:43 | disposition left against medical advice (07) ==
PROVIDERS: Emergency Provider Emergency Medicine
DX: M79.10 Myalgia, unspecified site (principal)
CPT/HCPCS: 99282; 99284

== ENCOUNTER 2023-09-15 22:36 | Emergency (ER) | payer OTHER, SELFPAY ==
[2023-09-15 23:02] VITALS: BP 148/78; BP 184/100; PULSE 75; PULSE 81; RESP 20; TEMP 36.6; O2SAT 98; O2SAT 99; BMI 33.7
--- NOTE | 2023-09-16 00:07 | ED.GENADULT ---
HPI - General Adult General Chief complaint: General Medical Stated complaint: NAUSEA Time Seen by Provider: 09/15/23 23:44 Source: patient Mode of arrival: EMS Limitations: no limitations History of Present Illness HPI narrative: Patient with frequent ED visits comes here multiple times with anxiety this time patient comes for postnasal drip with slight cough which is going on for long time has mucoid discharge no fever no chills patient used to have nasal spray does not have any more Related Data Home Medications Medication Instructions Recorded Confirmed alprazolam 0.5 mg tablet 0.5 mg PO TID PRN Anxiety 08/09/20 02/06/23 aripiprazole 2 mg tablet 2 mg PO BEDTIME 08/09/20 02/06/23 cholecalciferol (vitamin D3) 25 25 mcg PO BID 08/09/20 02/06/23 mcg (1,000 unit) tablet hydroxyzine HCl 50 mg tablet 50 mg PO TID PRN Anxiety 08/09/20 02/06/23 linaclotide 145 mcg capsule 145 mcg PO DAILY 08/09/20 02/06/23 mirtazapine 45 mg tablet 45 mg PO BEDTIME 08/09/20 02/06/23 multivitamin 1 cap PO DAILY 08/09/20 02/06/23 omeprazole 20 mg tablet,delayed 20 mg PO DAILY 08/09/20 02/06/23 release sertraline 50 mg tablet 50 mg PO BEDTIME 08/09/20 02/06/23 Previous Rx's Medication Instructions Recorded escitalopram oxalate 10 mg tablet 10 mg PO DAILY #30 tabs 09/06/20 acetaminophen 325 mg capsule 325 mg PO QID PRN fever or pain 09/16/20 #30 caps aspirin 81 mg tablet,delayed 81 mg PO BEDTIME #90 tabs 09/28/20 release metoprolol succinate 50 mg 50 mg PO DAILY #90 tabs 09/28/20 tablet,extended release 24 hr menthol 0.44 %-zinc oxide 20.6 % 1 appl topical QID PRN skin 12/13/20 topical ointment (Calmoseptine) irritation #113 grams magnesium citrate 150 ml PO DAILY PRN constipation 12/14/20 #296 mL diphenhydramine HCl 25 mg capsule 25 mg PO BEDTIME insomnia #7 caps 12/25/20 (Benadryl) melatonin 10 mg tablet,extended 10 mg PO .nightly #5 tabs 01/07/21 release cefdinir 300 mg capsule 300 mg PO BID Otitis media 10 days 04/14/21 #20 caps ondansetron HCl 4 mg tablet 4 mg PO Q8H PRN nausea and 04/14/21 (Zofran) vomiting #14 tabs metoprolol succinate 50 mg 50 mg PO DAILY #14 tabs 05/22/21 tablet,extended release 24 hr ciprofloxacin 0.3 %-dexamethasone 4 drp otic (ears) BID 7 days 05/26/21 0.1 % ear drops,suspension (Ciprodex) polyethylene glycol 3350 17 17 g PO DAILY PRN constipation 07/31/21 gram/dose oral powder (Miralax) #238 grams hydrocortisone acetate 25 mg 25 mg NM BID #12 ea 08/01/21 rectal suppository (Anucort-HC) cefuroxime axetil 500 mg tablet 500 mg PO BID 7 days #14 tabs 09/01/21 meclizine 25 mg tablet 25 mg PO TID PRN dizziness #10 tabs 09/01/21 zolpidem 5 mg tablet (Ambien) 5 mg PO BEDTIME PRN sleep #2 tabs 10/29/21 zolpidem 5 mg tablet (Ambien) 5 mg PO BEDTIME PRN sleep #2 tabs 10/29/21 levofloxacin 500 mg tablet 500 mg PO DAILY 7 days #7 tabs 07/23/22 levofloxacin 500 mg tablet 500 mg PO DAILY #6 tabs 08/25/22 ofloxacin 0.3 % ear drops 10 drp otic (ears) DAILY 7 days #5 08/25/22 mL hydrocortisone 2.5 % topical cream 1 appl NM BEDTIME PRN hemorrhoids 09/20/22 with perineal applicator #30 grams docusate sodium 100 mg capsule 100 mg PO BID PRN Constipation #14 12/06/22 (Colace) caps phenylephrine 0.25 %-mineral oil 1 appl NM BID PRN hemorrhoids #56 12/06/22 14 %-petrolatm 74.9 % rectal grams ointment (Hemorrhoidal(phenyleph-min oil-petrolat)) polyethylene glycol 3350 17 17 g PO BID #119 grams 12/06/22 gram/dose oral powder (Miralax) cefuroxime axetil 500 mg tablet 500 mg PO BID 10 days #20 tabs 12/16/22 alprazolam 0.25 mg tablet 0.25 mg PO QID #7 tabs 01/04/23 ofloxacin 0.3 % ear drops 5 drp otic (ear) left BID 7 days 01/06/23 #5 mL alprazolam 0.25 mg tablet 0.25 mg PO TID PRN anxiety #7 tabs 01/11/23 alprazolam 0.25 mg tablet 0.25 mg PO TID PRN anxiety #3 tabs 02/02/23 alprazolam 0.5 mg tablet (Xanax) 0.5 mg PO BEDTIME PRN anxiety #7 04/20/23 tabs metoprolol succinate 50 mg 50 mg PO DAILY #7 tabs 05/18/23 tablet,extended release 24 hr lisinopril 40 mg tablet 40 mg PO QPM #90 tabs 05/22/23 ondansetron 4 mg disintegrating 4 mg PO Q8H PRN nausea and 07/06/23 tablet vomiting #10 tabs hydrocortisone 1 % topical cream 1 appl topical BID PRN rash #28.4 08/03/23 grams phenylephrine 0.25 %-mineral oil 1 appl NM BID PRN hemorrhoids #57 08/17/23 14 %-petrolatm 74.9 % rectal grams ointment (Preparation H) polyethylene glycol 3350 17 17 g PO BID #119 grams 08/17/23 gram/dose oral powder (Miralax) diphenhydramine HCl 25 mg tablet 25 mg PO TID PRN Pruritus #20 tabs 08/25/23 (Benadryl Allergy) phenylephrine 0.25 %-cocoa butter 1 supp NM BID #24 ea 08/25/23 88.44 % rectal suppository (Preparation H(phenyleph,cocoa buttr)) phenylephrine 0.25 %-mineral oil 1 appl NM BID #28 grams 08/25/23 14 %-petrolatm 74.9 % rectal ointment (Preparation H) fluticasone propionate 50 2 spray intranasal DAILY #16 grams 09/16/23 mcg/actuation nasal spray,suspension (Flonase Allergy Relief) loratadine 10 mg tablet 10 mg PO DAILY #30 tabs 09/16/23 Allergies Allergy/AdvReac Type Severity Reaction Status Date / Time penicillin G [Penicillin G] Allergy Severe ITCHY/RASH Verified 08/25/23 01:41 Sulfa (Sulfonamide Allergy Severe ITCHY,RASH, Verified 08/25/23 01:41 Antibiotics) rash [Sulfa (Sulfonamides)] trimethoprim [From Bactrim] Allergy Severe HIVES Verified 08/25/23 01:41 penicillin V Allergy Unknown rash Verified 08/25/23 01:41 sulfacetamide Allergy Unknown unknown Verified 08/25/23 01:41 [From Sulfacet-R] sulfur [From Sulfacet-R] Allergy Unknown unknown Verified 08/25/23 01:41 [facility] Past Medical History Medical History Bleeding hemorrhoids Essential hypertension PVC (premature ventricular contraction) PAC (premature atrial contraction) SVT (supraventricular tachycardia) Chronic constipation High blood pressure Vertigo Dementia Arthritis Anxiety Surgical History No pertinent past surgical history Social History Social History Alcohol intake: never Patient Tobacco Use Status: Never used Tobacco Smoked in Last 30 Days: No Use of substances other than those prescribed or required for medical reasons: No Advance Directives: No Advance Directives Information Provided: Yes Physical Exam ED Vital Signs: Vital Signs - 24 hr 09/15/23 23:02 09/16/23 01:04 Temperature 97.9 F Pulse Rate 81 78 Respiratory Rate 20 18 Blood Pressure 148/78 H 156/76 H Pulse Oximetry 98 96 Oxygen Delivery Method Room Air Room Air BMI result Body Mass Index 33.7 Appearance: Alert. Oriented X3. No acute distress. Eyes: PERRLA, No Nystagmus ENT: Pharynx normal. Oral Mucosa moist postnasal drip+ Neck: Normal inspection. Neck supple. CVS: Normal heart rate and rhythm. Pulses normal. Respiratory: No respiratory distress. Equal air entry bilateral, no wheezing/rales/rhonchi Abdomen: Soft and nontender. Skin: Skin warm and dry. Normal skin color. Normal skin turgor. Extremities: No lower extremity edema. No calf tenderness Neuro: Oriented X 3. No motor deficit. No sensory deficit.No cerebellar signs , cranial nerves II-XII intact Medications Administered Discontinued Medications Generic Name Dose Route Start Last Admin Trade Name Freq PRN Reason Stop Dose Admin Loratadine 10 mg 09/16/23 00:07 09/16/23 01:04 Loratadine 10 Mg Tablet PO 09/16/23 00:08 10 mg ONCE ONE Administration Medical Decision Making Medical Decision Making [facility] Narrative: Patient with chronic rhinitis with admission on Flonase loratadine Differential Diagnosis Differential Diagnoses: The differential diagnosis associated with the presentation includes As above Discharge Plan Discharge Clinical Impression: Chronic allergic rhinitis Patient Disposition: Home, Self-Care Instructions: Allergic Rhinitis (ED) Additional Instructions: Take nasal spray as prescribed Take loratadine daily Follow with PCP as needed Prescriptions: New loratadine 10 mg tablet 10 mg PO DAILY Qty: 30 0RF fluticasone propionate [Flonase Allergy Relief] 50 mcg/actuation spray,suspension 2 spray intranasal DAILY Qty: 16 0RF Rx Instructions: administer into each nostril No Action escitalopram oxalate 10 mg tablet 10 mg PO DAILY Qty: 30 1RF metoprolol succinate 50 mg tablet extended release 24 hr 50 mg PO DAILY Qty: 90 2RF aspirin 81 mg tablet,delayed release (DR/EC) 81 mg PO BEDTIME Qty: 90 2RF polyethylene glycol 3350 [Miralax] 17 gram/dose powder 17 g PO DAILY PRN (Reason: constipation) Qty: 238 0RF lisinopril 40 mg tablet 40 mg PO QPM Qty: 90 0RF Rx Instructions: Please call and schedule cardiology appt acetaminophen 325 mg capsule 325 mg PO QID PRN (Reason: fever or pain) Qty: 30 0RF melatonin 10 mg tablet extended release 10 mg PO .nightly Qty: 5 0RF metoprolol succinate 50 mg tablet extended release 24 hr 50 mg PO DAILY Qty: 14 0RF ciprofloxacin-dexamethasone [Ciprodex] 0.3-0.1 % drops,suspension 4 drp otic (ears) BID 7 Days 0RF alprazolam 0.5 mg Tablet 0.5 mg PO TID PRN (Reason: Anxiety) hydroxyzine HCl 50 mg Tablet 50 mg PO TID PRN (Reason: Anxiety) mirtazapine 45 mg Tablet 45 mg PO BEDTIME multivitamin Capsule 1 cap PO DAILY sertraline 50 mg Tablet 50 mg PO BEDTIME aripiprazole 2 mg Tablet 2 mg PO BEDTIME cholecalciferol (vitamin D3) 25 mcg (1,000 unit) Tablet 25 mcg PO BID omeprazole 20 mg Tablet,Delayed Release (Dr/Ec) 20 mg PO DAILY linaclotide 145 mcg Capsule 145 mcg PO DAILY diphenhydramine HCl [Benadryl] 25 mg capsule 25 mg PO BEDTIME Qty: 7 0RF cefdinir 300 mg capsule 300 mg PO BID 10 Days Qty: 20 0RF ondansetron HCl [Zofran] 4 mg tablet 4 mg PO Q8H PRN (Reason: nausea and vomiting) Qty: 14 0RF cefuroxime axetil 500 mg tablet 500 mg PO BID 7 Days Qty: 14 0RF meclizine 25 mg tablet 25 mg PO TID PRN (Reason: dizziness) Qty: 10 0RF levofloxacin 500 mg tablet 500 mg PO DAILY 7 Days Qty: 7 0RF cefuroxime axetil 500 mg tablet 500 mg PO BID 10 Days Qty: 20 0RF alprazolam 0.25 mg tablet 0.25 mg PO QID Qty: 7 0RF levofloxacin 500 mg tablet 500 mg PO DAILY Qty: 6 0RF Rx Instructions: start on 08/26 ofloxacin 0.3 % drops 10 drp otic (ears) DAILY 7 Days Qty: 5 0RF Rx Instructions: can substitute eye drops if necessary hydrocortisone 2.5 % cream with perineal applicator 1 appl NM BEDTIME PRN (Reason: hemorrhoids) Qty: 30 0RF Hemorrhoidal(PE-min oil-emma) 0.25-14-74.9 % ointment 1 appl NM BID PRN (Reason: hemorrhoids) Qty: 56 0RF polyethylene glycol 3350 [Miralax] 17 gram/dose powder 17 g PO BID Qty: 119 0RF docusate sodium [Colace] 100 mg capsule 100 mg PO BID PRN (Reason: Constipation) Qty: 14 0RF ofloxacin 0.3 % drops 5 drp otic (ear) left BID 7 Days Qty: 5 0RF alprazolam 0.25 mg tablet 0.25 mg PO TID PRN (Reason: anxiety) Qty: 7 0RF alprazolam [Xanax] 0.5 mg tablet 0.5 mg PO BEDTIME PRN (Reason: anxiety) Qty: 7 0RF metoprolol succinate 50 mg tablet extended release 24 hr 50 mg PO DAILY Qty: 7 0RF Preparation H 0.25-14-74.9 % ointment 1 appl NM BID PRN (Reason: hemorrhoids) Qty: 57 0RF polyethylene glycol 3350 [Miralax] 17 gram/dose powder 17 g PO BID Qty: 119 0RF Preparation H 0.25-14-74.9 % ointment 1 appl NM BID Qty: 28 0RF Preparation H(pe,cb) 0.25-88.44 % suppository 1 supp NM BID Qty: 24 0RF diphenhydramine HCl [Benadryl Allergy] 25 mg tablet 25 mg PO TID PRN (Reason: Pruritus) Qty: 20 0RF alprazolam 0.25 mg tablet 0.25 mg PO TID PRN (Reason: anxiety) Qty: 3 0RF ondansetron 4 mg tablet,disintegrating 4 mg PO Q8H PRN (Reason: nausea and vomiting) Qty: 10 0RF hydrocortisone 1 % cream 1 appl topical BID PRN (Reason: rash) Qty: 28.4 0RF Calmoseptine 0.44-20.6 % ointment 1 appl topical QID PRN (Reason: skin irritation) Qty: 113 0RF magnesium citrate Solution 150 ml PO DAILY PRN (Reason: constipation) Qty: 296 0RF Rx Instructions: take only when needed for constipation hydrocortisone acetate [Anucort-HC] 25 mg suppository 25 mg NM BID Qty: 12 3RF zolpidem [Ambien] 5 mg tablet 5 mg PO BEDTIME PRN (Reason: sleep) Qty: 2 0RF zolpidem [Ambien] 5 mg tablet 5 mg PO BEDTIME PRN (Reason: sleep) Qty: 2 0RF Interventions: ED Discharge Assessment Last Done: 09/16/23 01:11 Discharge Date/Time: 09/16/23 01:12
[2023-09-16 01:04] VITALS: BP 156/76; PULSE 78; RESP 18; O2SAT 96
[2023-09-16] MEDS: Loratadine 10 MG TABLET PO (01:04)
== END 2023-09-16 01:12 | disposition home or self-care (01) ==
PROVIDERS: Emergency Provider Internal Medicine
DX: J30.9 Allergic rhinitis, unspecified (principal); R11.2 Nausea with vomiting, unspecified; R05.9 Cough, unspecified; Z79.899 Other long term (current) drug therapy
CPT/HCPCS: 99283; 99284

== ENCOUNTER 2023-09-22 10:12 | Outpatient (AMB) | payer OTHER, SELFPAY ==
--- NOTE | 2023-09-22 10:19 | A.OFFVIS_ITS ---
Intake Vital Signs 09/22/23 10:20 09/22/23 10:34 Height 5 ft 2 in Weight 178 lb BMI 32.6 BP 175/69 H 132/80 Blood Pressure Location Lt brachial Lt brachial Position Sitting Sitting Pulse 72 Intake Visit Reasons: hemorrhoids Intake Note: This patient presents for an assessment for hemorrhoids. Patient c/o; report rectal bleeding, reports burning sensation. Contract Administration Manager Required: Yes Contract Administration Manager Language: City Bailiff Name: Yves Information Interpreted: non-clinical & clinical Enrollment Nurse: Enrollment Nurse Present (Yves) Accompanied by: Self / Same As Patient Allergies penicillin G [Penicillin G] Allergy (Severe, Verified 09/22/23 10:21) ITCHY/RASH Sulfa (Sulfonamide Antibiotics) [Sulfa (Sulfonamides)] Allergy (Severe, Verified 09/22/23 10:21) ITCHY,RASH, rash trimethoprim [From Bactrim] Allergy (Severe, Verified 09/22/23 10:21) HIVES penicillin V Allergy (Unknown, Verified 09/22/23 10:21) rash sulfacetamide [From Sulfacet-R] Allergy (Unknown, Verified 09/22/23 10:21) unknown sulfur [From Sulfacet-R] Allergy (Unknown, Verified 09/22/23 10:21) unknown Medication List - Last Reconciled 09/22/23 by Dann Khan MD acetaminophen 325 mg PO QID PRN alprazolam 0.5 mg PO TID PRN alprazolam 0.25 mg PO QID alprazolam 0.25 mg PO TID PRN alprazolam 0.25 mg PO TID PRN alprazolam (Xanax) 0.5 mg PO BEDTIME PRN aripiprazole 2 mg PO BEDTIME aspirin 81 mg PO BEDTIME cefdinir 300 mg PO BID 10 days cefuroxime axetil 500 mg PO BID 7 days cefuroxime axetil 500 mg PO BID 10 days cholecalciferol (vitamin D3) 25 mcg PO BID ciprofloxacin-dexamethasone 0.3-0.1 % (Ciprodex) 4 drps otic (ears) BID 7 days diphenhydramine HCl (Benadryl) 25 mg PO BEDTIME diphenhydramine HCl (Benadryl Allergy) 25 mg PO TID PRN docusate sodium (Colace) 100 mg PO BID PRN escitalopram oxalate 10 mg PO DAILY fluticasone propionate 50 mcg/actuation (Flonase Allergy Relief) 2 sprays intranasal DAILY hydrocortisone 2.5% 1 appl [place] BEDTIME PRN hydrocortisone 1% 1 appl topical BID PRN hydrocortisone acetate (Anucort-HC) 25 mg [place] BID hydroxyzine HCl 50 mg PO TID PRN levofloxacin 500 mg PO DAILY levofloxacin 500 mg PO DAILY 7 days linaclotide 145 mcg PO DAILY lisinopril 40 mg PO QPM loratadine 10 mg PO DAILY magnesium citrate 150 mL PO DAILY PRN meclizine 25 mg PO TID PRN melatonin ER 10 mg PO .nightly menthol-zinc oxide 0.44-20.6 % (Calmoseptine) 1 appl topical QID PRN metoprolol succinate ER 50 mg PO DAILY metoprolol succinate ER 50 mg PO DAILY metoprolol succinate ER 50 mg PO DAILY mirtazapine 45 mg PO BEDTIME multivitamin 1 cap PO DAILY ofloxacin 0.3% 10 drps otic (ears) DAILY 7 days ofloxacin 0.3% 5 drps otic (ear) left BID 7 days omeprazole 20 mg PO DAILY ondansetron 4 mg PO Q8H PRN ondansetron HCl (Zofran) 4 mg PO Q8H PRN phenyleph-min oil-petrolatum 0.25-14-74.9 % (Hemorrhoidal(phenyleph-min oil- petrolat)) 1 appl [place] BID PRN phenyleph-min oil-petrolatum 0.25-14-74.9 % (Preparation H) 1 appl [place] BID PRN phenyleph-min oil-petrolatum 0.25-14-74.9 % (Preparation H) 1 appl [place] BID phenylephrine-cocoa butter 0.25-88.44 % (Preparation H(phenyleph,cocoa buttr)) 1 supp [place] BID polyethylene glycol 3350 (Miralax) 17 grams PO BID polyethylene glycol 3350 (Miralax) 17 grams PO BID polyethylene glycol 3350 (Miralax) 17 grams PO DAILY PRN sertraline 50 mg PO BEDTIME zolpidem (Ambien) 5 mg PO BEDTIME PRN zolpidem (Ambien) 5 mg PO BEDTIME PRN HPI hemorrhoids HPI Details She is here to have her hemorrhoids checked. She says she has perianal burning. She noticed some amounts of bright blood on wiping 3 days ago. She has a known long history of hemorrhoids with occasional bleeding as well as pain. She is extremely anxious about this. There does not seem to be any other new complaints. [facility] Medical History Bleeding hemorrhoids Essential hypertension PVC (premature ventricular contraction) PAC (premature atrial contraction) SVT (supraventricular tachycardia) Chronic constipation High blood pressure Vertigo Dementia Arthritis Anxiety Surgical History No pertinent past surgical history Social History Alcohol intake: never Patient Tobacco Use Status: Never used Tobacco Review of Systems Const Denies chills and Denies fever(s) Card Denies chest pain, Denies dyspnea and Denies dyspnea on exertion Resp Denies cough, Denies dyspnea and Denies dyspnea on exertion GI Reports hematochezia, Denies change in bowel habits and Reports constipation Denies hematuria Musc Denies back pain and Denies limited range of motion Neuro Denies focal weakness and Denies convulsions Psych Denies depression and Denies mood swings Physical Exam Vital Signs: Last Vital Signs Pulse 72 09/22/23 10:20 BP 175/69 H 09/22/23 10:20 BMI result Body Mass Index 32.6 Const Other: Very anxious General: comfortable and no acute distress Orientation/consciousness: patient oriented x3 Neck Neck: Yes no lymphadenopathy Resp Auscultation: clear to auscultation bilaterally Cardio Rhythm: regular rhythm GI Other: rectal exam - small external hemorrhoids; anoscopy as described Palpation (GI): Soft to palpation, nontender and no guarding Neuro General: patient oriented x3 Office Procedures Anoscopy She was in sj-knife position. The anoscope was gently inserted. A full examination of the anal canal was done. She had internal hemorrhoids, left and right. There was no active bleeding. There were no other lesions. There was no fissure or ulceration. There is no induration on digital exam. [id number] Assessment & Plan Assessment & Plan (1) Bleeding hemorrhoids: Code(s): K64.9 - Unspecified hemorrhoids Plan: She has known history of hemorrhoids and has occasional bleeding. She is extremely anxious about this. I assured her about my findings. She also comp lains of perianal burning from her hemorrhoids. I will prescribe her Calmoseptine. She can follow up on a p.r.n. basis. Coding Level of Care Code Est Pt Level 3 (51439) Diagnoses Bleeding hemorrhoids K64.9 CPT Codes Details - CPT: 85042-[id number] ([id number])
[2023-09-22 10:20] VITALS: BP 175/69; PULSE 72; BMI 32.6
[2023-09-22 10:34] VITALS: BP 132/80
== END 2023-09-22 10:37 | disposition home or self-care (01) ==
PROVIDERS: Visit Provider Surgery
DX: K64.9 Unspecified hemorrhoids (principal)
CPT/HCPCS: 46600; 99213

== ENCOUNTER → 2023-09-22 10:12 | Outpatient (BNVA) | payer OTHER, SELFPAY | PROVIDERS: Visit Provider Surgery | DX: K64.9 Unspecified hemorrhoids (principal) | CPT/HCPCS: 46600; 99212 ==

== ENCOUNTER 2023-09-28 22:31 | Emergency (ER) | payer OTHER, SELFPAY ==
--- NOTE | 2023-09-28 | ECG_ITS ---
Test Reason : HYPERTENSION Blood Pressure : / mmHG Vent. Rate : 082 BPM Atrial Rate : 082 BPM P-R Int : 184 ms QRS Dur : 098 ms QT Int : 370 ms P-R-T Axes : 049 -25 021 degrees QTc Int : 432 ms Normal sinus rhythm with sinus arrhythmia Moderate voltage criteria for LVH, may be normal variant ( R in aVL , Maycol product ) Left axis deviation Borderline ECG When compared with ECG of 09-AUG-2023 22:52, No significant change was found Referred By: Generic ED Physician Electronically Signed By:RONY ROCHA MD
[2023-09-28 22:36] VITALS: BP 147/74; BP 150/77; PULSE 80; RESP 18; TEMP 36.9; O2SAT 97; BMI 32.3
--- NOTE | 2023-09-28 22:45 | ED.GENADULT ---
HPI - General Adult General Chief complaint: General Medical Stated complaint: nausea, hypertension. bp166/86 Time Seen by Provider: 09/28/23 22:42 Source: patient Mode of arrival: EMS Limitations: no limitations History of Present Illness HPI narrative: patient comes to the emergency room complaining of anxiety, hypertension nausea and insomnia. Patient states that her blood pressure was very high at home . EMS brought the patient to the emergency room, on arrival blood pressure 147/74. Patient requesting anxiety medications And something for insomnia. Patient denies any chest pain or shortness of breath Related Data Home Medications Medication Instructions Recorded Confirmed alprazolam 0.5 mg tablet 0.5 mg PO TID PRN Anxiety 08/09/20 09/22/23 aripiprazole 2 mg tablet 2 mg PO BEDTIME 08/09/20 09/22/23 cholecalciferol (vitamin D3) 25 25 mcg PO BID 08/09/20 09/22/23 mcg (1,000 unit) tablet hydroxyzine HCl 50 mg tablet 50 mg PO TID PRN Anxiety 08/09/20 09/22/23 linaclotide 145 mcg capsule 145 mcg PO DAILY 08/09/20 09/22/23 mirtazapine 45 mg tablet 45 mg PO BEDTIME 08/09/20 09/22/23 multivitamin 1 cap PO DAILY 08/09/20 09/22/23 omeprazole 20 mg tablet,delayed 20 mg PO DAILY 08/09/20 09/22/23 release sertraline 50 mg tablet 50 mg PO BEDTIME 08/09/20 09/22/23 Previous Rx's Medication Instructions Recorded escitalopram oxalate 10 mg tablet 10 mg PO DAILY #30 tabs 09/06/20 acetaminophen 325 mg capsule 325 mg PO QID PRN fever or pain 09/16/20 #30 caps aspirin 81 mg tablet,delayed 81 mg PO BEDTIME #90 tabs 09/28/20 release metoprolol succinate 50 mg 50 mg PO DAILY #90 tabs 09/28/20 tablet,extended release 24 hr menthol 0.44 %-zinc oxide 20.6 % 1 appl topical QID PRN skin 12/13/20 topical ointment (Calmoseptine) irritation #113 grams magnesium citrate 150 ml PO DAILY PRN constipation 12/14/20 #296 mL diphenhydramine HCl 25 mg capsule 25 mg PO BEDTIME insomnia #7 caps 12/25/20 (Benadryl) melatonin 10 mg tablet,extended 10 mg PO .nightly #5 tabs 01/07/21 release cefdinir 300 mg capsule 300 mg PO BID Otitis media 10 days 04/14/21 #20 caps ondansetron HCl 4 mg tablet 4 mg PO Q8H PRN nausea and 04/14/21 (Zofran) vomiting #14 tabs metoprolol succinate 50 mg 50 mg PO DAILY #14 tabs 05/22/21 tablet,extended release 24 hr ciprofloxacin 0.3 %-dexamethasone 4 drp otic (ears) BID 7 days 05/26/21 0.1 % ear drops,suspension (Ciprodex) polyethylene glycol 3350 17 17 g PO DAILY PRN constipation 07/31/21 gram/dose oral powder (Miralax) #238 grams hydrocortisone acetate 25 mg 25 mg CA BID #12 ea 08/01/21 rectal suppository (Anucort-HC) cefuroxime axetil 500 mg tablet 500 mg PO BID 7 days #14 tabs 09/01/21 meclizine 25 mg tablet 25 mg PO TID PRN dizziness #10 tabs 09/01/21 zolpidem 5 mg tablet (Ambien) 5 mg PO BEDTIME PRN sleep #2 tabs 10/29/21 zolpidem 5 mg tablet (Ambien) 5 mg PO BEDTIME PRN sleep #2 tabs 10/29/21 levofloxacin 500 mg tablet 500 mg PO DAILY 7 days #7 tabs 07/23/22 levofloxacin 500 mg tablet 500 mg PO DAILY #6 tabs 08/25/22 ofloxacin 0.3 % ear drops 10 drp otic (ears) DAILY 7 days #5 08/25/22 mL hydrocortisone 2.5 % topical cream 1 appl CA BEDTIME PRN hemorrhoids 09/20/22 with perineal applicator #30 grams docusate sodium 100 mg capsule 100 mg PO BID PRN Constipation #14 12/06/22 (Colace) caps phenylephrine 0.25 %-mineral oil 1 appl CA BID PRN hemorrhoids #56 12/06/22 14 %-petrolatm 74.9 % rectal grams ointment (Hemorrhoidal(phenyleph-min oil-petrolat)) polyethylene glycol 3350 17 17 g PO BID #119 grams 12/06/22 gram/dose oral powder (Miralax) cefuroxime axetil 500 mg tablet 500 mg PO BID 10 days #20 tabs 12/16/22 alprazolam 0.25 mg tablet 0.25 mg PO QID #7 tabs 01/04/23 ofloxacin 0.3 % ear drops 5 drp otic (ear) left BID 7 days 01/06/23 #5 mL alprazolam 0.25 mg tablet 0.25 mg PO TID PRN anxiety #7 tabs 01/11/23 alprazolam 0.25 mg tablet 0.25 mg PO TID PRN anxiety #3 tabs 02/02/23 alprazolam 0.5 mg tablet (Xanax) 0.5 mg PO BEDTIME PRN anxiety #7 04/20/23 tabs metoprolol succinate 50 mg 50 mg PO DAILY #7 tabs 05/18/23 tablet,extended release 24 hr lisinopril 40 mg tablet 40 mg PO QPM #90 tabs 05/22/23 ondansetron 4 mg disintegrating 4 mg PO Q8H PRN nausea and 07/06/23 tablet vomiting #10 tabs hydrocortisone 1 % topical cream 1 appl topical BID PRN rash #28.4 08/03/23 grams phenylephrine 0.25 %-mineral oil 1 appl CA BID PRN hemorrhoids #57 08/17/23 14 %-petrolatm 74.9 % rectal grams ointment (Preparation H) polyethylene glycol 3350 17 17 g PO BID #119 grams 08/17/23 gram/dose oral powder (Miralax) diphenhydramine HCl 25 mg tablet 25 mg PO TID PRN Pruritus #20 tabs 08/25/23 (Benadryl Allergy) phenylephrine 0.25 %-cocoa butter 1 supp CA BID #24 ea 08/25/23 88.44 % rectal suppository (Preparation H(phenyleph,cocoa buttr)) phenylephrine 0.25 %-mineral oil 1 appl CA BID #28 grams 08/25/23 14 %-petrolatm 74.9 % rectal ointment (Preparation H) fluticasone propionate 50 2 spray intranasal DAILY #16 grams 09/16/23 mcg/actuation nasal spray,suspension (Flonase Allergy Relief) loratadine 10 mg tablet 10 mg PO DAILY #30 tabs 09/16/23 menthol 0.44 %-zinc oxide 20.6 % 1 appl topical QID PRN skin 09/22/23 topical ointment (Calmoseptine) irritation #113 grams Allergies Allergy/AdvReac Type Severity Reaction Status Date / Time penicillin G [Penicillin G] Allergy Severe ITCHY/RASH Verified 09/28/23 22:41 Sulfa (Sulfonamide Allergy Severe ITCHY,RASH, Verified 09/28/23 22:41 Antibiotics) rash [Sulfa (Sulfonamides)] trimethoprim [From Bactrim] Allergy Severe HIVES Verified 09/28/23 22:41 penicillin V Allergy Unknown rash Verified 09/28/23 22:41 sulfacetamide Allergy Unknown unknown Verified 09/28/23 22:41 [From Sulfacet-R] sulfur [From Sulfacet-R] Allergy Unknown unknown Verified 09/28/23 22:41 Review of Systems Review of Systems: Constitutional : No Weight loss, No Fever, No Chills, No Night Sweats, No Fatigue, No Malaise ENT/Mouth : No Hearing loss, No Ear Pain, No Nasal Congestion, No Sinus Pain, No Hoarseness, No sore throat, No Rhinorrhea, No Swallowing Difficulty Eyes: No Eye Pain, No Swelling, No Redness, No Foreign Body, No Discharge, No Vision Changes Cardiovascular : No Chest Pain, No SOB, No Dyspnea on Exertion, No Orthopnea, No Edema, No Palpitations Respiratory : No Cough, No Sputum, No Wheezing, No Smoke Exposure, No Dyspnea Gastrointestinal : No Nausea, No Vomiting, No Diarrhea, No Constipation, No abdominal Pain, No Hematochezia, No Melena Genitourinary : no irregular bleeding, No Dysuria, No Urinary Frequency, No Hematuria, No Urinary Incontinence, No Urgency, No Flank Pain, No Urinary Flow Changes, No Hesitancy Musculoskeletal : No joint pain, No Myalgias, No Joint Swelling Skin : No Skin Lesions, No rash Neuro : No Weakness, No Numbness, No Paresthesias, No Loss of Consciousness, No Dizziness, No Headache, complaining of insomnia Psych : complaining of anxiety, No Depression, No SI/HI/AH/VH, No Social Issues, Heme/Lymph: No Bruising, No Bleeding,No Lymphadenopathy Endocrine : No Polyuria, No Polydipsia, No Temperature Intolerance PMFSH Past Medical History Medical History Bleeding hemorrhoids Essential hypertension PVC (premature ventricular contraction) PAC (premature atrial contraction) SVT (supraventricular tachycardia) Chronic constipation High blood pressure Vertigo Dementia Arthritis Anxiety Surgical History No pertinent past surgical history Social History Social History Alcohol intake: never Patient Tobacco Use Status: Never used Tobacco Physical Exam ED Vital Signs: Vital Signs - 24 hr 09/28/23 22:36 Temperature 98.4 F Pulse Rate 80 Respiratory Rate 18 Blood Pressure 147/74 H BMI result Body Mass Index 32.3 Const Other: Appearance: Alert. Oriented X3. No acute distress. Eyes: Pupils equal, round and reactive to light. ENT: Pharynx normal. Neck: Normal inspection. Neck supple. No lymph nodes noted. No crepitus CVS: Normal heart rate and rhythm. Pulses normal. Normal S1 and S2 Respiratory: No respiratory distress. Breath sounds normal. No Wheezing. No rales Abdomen: Soft and nontender. No rigidity. No distention. Skin: Skin warm and dry. Normal skin color. Normal skin turgor. Extremities: No lower extremity edema. No Lacerations. No Rash Neuro: Oriented X 3. No motor deficit. No sensory deficit. Moving all extremities. No slurred speech. CN 2 through 12 grossly intact Psych: calm, cooperative, anxious Medical Decision Making Medical Decision Making MDM Narrative: - on arrival, patient's blood pressure 147/74, discussed with the patient that at this time medication for hypertension is not indicated - discussed with the patient that she will get 1 dose of sublingual Zofran for the nausea. For insomnia, she will get a dose of Benadryl. Discussed with the patient that for anxiety she has scheduled medications, she will not be getting any additional doses of benzodiazepines in the emergency room. Patient agrees with plan Differential Diagnosis Differential Diagnoses: The differential diagnosis associated with the presentation includes ( anxiety, nausea) Discharge Plan Discharge Clinical Impression: Anxiety Instructions: Anxiety (ED) Additional Instructions: Please follow-up with your primary care physician tomorrow. If you have any worsening or new symptoms, please return to the emergency room or call 911 Prescriptions: No Action escitalopram oxalate 10 mg tablet 10 mg PO DAILY Qty: 30 1RF metoprolol succinate 50 mg tablet extended release 24 hr 50 mg PO DAILY Qty: 90 2RF aspirin 81 mg tablet,delayed release (DR/EC) 81 mg PO BEDTIME Qty: 90 2RF polyethylene glycol 3350 [Miralax] 17 gram/dose powder 17 g PO DAILY PRN (Reason: constipation) Qty: 238 0RF lisinopril 40 mg tablet 40 mg PO QPM Qty: 90 0RF Rx Instructions: Please call and schedule cardiology appt acetaminophen 325 mg capsule 325 mg PO QID PRN (Reason: fever or pain) Qty: 30 0RF melatonin 10 mg tablet extended release 10 mg PO .nightly Qty: 5 0RF metoprolol succinate 50 mg tablet extended release 24 hr 50 mg PO DAILY Qty: 14 0RF ciprofloxacin-dexamethasone [Ciprodex] 0.3-0.1 % drops,suspension 4 drp otic (ears) BID 7 Days 0RF alprazolam 0.5 mg Tablet 0.5 mg PO TID PRN (Reason: Anxiety) hydroxyzine HCl 50 mg Tablet 50 mg PO TID PRN (Reason: Anxiety) mirtazapine 45 mg Tablet 45 mg PO BEDTIME multivitamin Capsule 1 cap PO DAILY sertraline 50 mg Tablet 50 mg PO BEDTIME aripiprazole 2 mg Tablet 2 mg PO BEDTIME cholecalciferol (vitamin D3) 25 mcg (1,000 unit) Tablet 25 mcg PO BID omeprazole 20 mg Tablet,Delayed Release (Dr/Ec) 20 mg PO DAILY linaclotide 145 mcg Capsule 145 mcg PO DAILY diphenhydramine HCl [Benadryl] 25 mg capsule 25 mg PO BEDTIME Qty: 7 0RF cefdinir 300 mg capsule 300 mg PO BID 10 Days Qty: 20 0RF ondansetron HCl [Zofran] 4 mg tablet 4 mg PO Q8H PRN (Reason: nausea and vomiting) Qty: 14 0RF cefuroxime axetil 500 mg tablet 500 mg PO BID 7 Days Qty: 14 0RF meclizine 25 mg tablet 25 mg PO TID PRN (Reason: dizziness) Qty: 10 0RF levofloxacin 500 mg tablet 500 mg PO DAILY 7 Days Qty: 7 0RF cefuroxime axetil 500 mg tablet 500 mg PO BID 10 Days Qty: 20 0RF alprazolam 0.25 mg tablet 0.25 mg PO QID Qty: 7 0RF levofloxacin 500 mg tablet 500 mg PO DAILY Qty: 6 0RF Rx Instructions: start on 08/26 ofloxacin 0.3 % drops 10 drp otic (ears) DAILY 7 Days Qty: 5 0RF Rx Instructions: can substitute eye drops if necessary hydrocortisone 2.5 % cream with perineal applicator 1 appl CA BEDTIME PRN (Reason: hemorrhoids) Qty: 30 0RF Hemorrhoidal(PE-min oil-emma) 0.25-14-74.9 % ointment 1 appl CA BID PRN (Reason: hemorrhoids) Qty: 56 0RF polyethylene glycol 3350 [Miralax] 17 gram/dose powder 17 g PO BID Qty: 119 0RF docusate sodium [Colace] 100 mg capsule 100 mg PO BID PRN (Reason: Constipation) Qty: 14 0RF ofloxacin 0.3 % drops 5 drp otic (ear) left BID 7 Days Qty: 5 0RF alprazolam 0.25 mg tablet 0.25 mg PO TID PRN (Reason: anxiety) Qty: 7 0RF alprazolam [Xanax] 0.5 mg tablet 0.5 mg PO BEDTIME PRN (Reason: anxiety) Qty: 7 0RF metoprolol succinate 50 mg tablet extended release 24 hr 50 mg PO DAILY Qty: 7 0RF Preparation H 0.25-14-74.9 % ointment 1 appl CA BID PRN (Reason: hemorrhoids) Qty: 57 0RF polyethylene glycol 3350 [Miralax] 17 gram/dose powder 17 g PO BID Qty: 119 0RF Preparation H 0.25-14-74.9 % ointment 1 appl CA BID Qty: 28 0RF Preparation H(pe,cb) 0.25-88.44 % suppository 1 supp CA BID Qty: 24 0RF diphenhydramine HCl [Benadryl Allergy] 25 mg tablet 25 mg PO TID PRN (Reason: Pruritus) Qty: 20 0RF loratadine 10 mg tablet 10 mg PO DAILY Qty: 30 0RF fluticasone propionate [Flonase Allergy Relief] 50 mcg/actuation spray,suspension 2 spray intranasal DAILY Qty: 16 0RF Rx Instructions: administer into each nostril alprazolam 0.25 mg tablet 0.25 mg PO TID PRN (Reason: anxiety) Qty: 3 0RF ondansetron 4 mg tablet,disintegrating 4 mg PO Q8H PRN (Reason: nausea and vomiting) Qty: 10 0RF hydrocortisone 1 % cream 1 appl topical BID PRN (Reason: rash) Qty: 28.4 0RF Calmoseptine 0.44-20.6 % ointment 1 appl topical QID PRN (Reason: skin irritation) Qty: 113 0RF magnesium citrate Solution 150 ml PO DAILY PRN (Reason: constipation) Qty: 296 0RF Rx Instructions: take only when needed for constipation hydrocortisone acetate [Anucort-HC] 25 mg suppository 25 mg CA BID Qty: 12 3RF zolpidem [Ambien] 5 mg tablet 5 mg PO BEDTIME PRN (Reason: sleep) Qty: 2 0RF zolpidem [Ambien] 5 mg tablet 5 mg PO BEDTIME PRN (Reason: sleep) Qty: 2 0RF menthol-zinc oxide [Calmoseptine] 0.44-20.6 % ointment 1 appl topical QID PRN (Reason: skin irritation) Qty: 113 0RF
[2023-09-28] MEDS: diphenhydrAMINE HCL 25 MG CAPSULE PO (23:02)
[2023-09-28] MEDS: Ondansetron ODT 4 MG TAB.RAPDIS TRANSLINGU (23:03)
[2023-09-28 23:06] VITALS: BP 135/69; PULSE 79; RESP 18; O2SAT 98
--- NOTE | 2023-09-28 23:07 | PC.NURSE ---
pt biba from home reporting hypertension, pt reports getting a systolic reading of 180. pt reports nausea. pt reports wanting medication to sleep. pt normal sinus on tele 78-80.
== END 2023-09-28 23:10 | disposition home or self-care (01) ==
PROVIDERS: Emergency Provider Emergency Medicine; PCP Internal Medicine Geriatric Medicine
DX: R11.2 Nausea with vomiting, unspecified (principal); I49.8 Other specified cardiac arrhythmias; I10 Essential (primary) hypertension; G47.00 Insomnia, unspecified; Z79.899 Other long term (current) drug therapy
CPT/HCPCS: 93005; 99284

== ENCOUNTER 2023-10-06 06:37 | Emergency (ER) | payer OTHER, SELFPAY ==
[2023-10-06 06:44] VITALS: BP 176/96; PULSE 90; O2SAT 99
--- NOTE | 2023-10-06 06:48 | ED.GENADULT ---
HPI - General Adult General Stated complaint: hypertension Time Seen by Provider: 10/06/23 06:46 Source: patient, EMS and interpreter and translator Mode of arrival: EMS Limitations: language barrier History of Present Illness HPI narrative: Patient is an 78 year old assigned female at with a history of anxiety and HTN presenting to the emergency department today with concerns of an elevated blood pressure. Patient states that she called the ambulance for concerns of high blood pressure, they took the reading and told it was still high, so she came in to the ED. Patient denies any symptoms. Patient denies any dizziness, lightheadedness, abdominal pain, nausea, vomiting, fever, chills, blurry vision, double vision, loss of vision, chest pain, difficulty breathing, shortness of breath, back pain, night sweats, pain with urination, increased urinary frequency, increased urinary urgency, blood in her urine or stool, syncope or a near syncopal episode, recent trauma or falls, bowel incontinence, bladder incontinence, bowel retention, bladder retention, or any other complaints at this time. Relieving factors: none Exacerbating factors: none Associated symptoms: denies other symptoms Treatments prior to arrival: none Related Data Home Medications Medication Instructions Recorded Confirmed alprazolam 0.5 mg tablet 0.5 mg PO TID PRN Anxiety 08/09/20 09/22/23 aripiprazole 2 mg tablet 2 mg PO BEDTIME 08/09/20 09/22/23 cholecalciferol (vitamin D3) 25 25 mcg PO BID 08/09/20 09/22/23 mcg (1,000 unit) tablet hydroxyzine HCl 50 mg tablet 50 mg PO TID PRN Anxiety 08/09/20 09/22/23 linaclotide 145 mcg capsule 145 mcg PO DAILY 08/09/20 09/22/23 mirtazapine 45 mg tablet 45 mg PO BEDTIME 08/09/20 09/22/23 multivitamin 1 cap PO DAILY 08/09/20 09/22/23 omeprazole 20 mg tablet,delayed 20 mg PO DAILY 08/09/20 09/22/23 release sertraline 50 mg tablet 50 mg PO BEDTIME 08/09/20 09/22/23 Previous Rx's Medication Instructions Recorded escitalopram oxalate 10 mg tablet 10 mg PO DAILY #30 tabs 09/06/20 acetaminophen 325 mg capsule 325 mg PO QID PRN fever or pain 09/16/20 #30 caps aspirin 81 mg tablet,delayed 81 mg PO BEDTIME #90 tabs 09/28/20 release metoprolol succinate 50 mg 50 mg PO DAILY #90 tabs 09/28/20 tablet,extended release 24 hr menthol 0.44 %-zinc oxide 20.6 % 1 appl topical QID PRN skin 12/13/20 topical ointment (Calmoseptine) irritation #113 grams magnesium citrate 150 ml PO DAILY PRN constipation 12/14/20 #296 mL diphenhydramine HCl 25 mg capsule 25 mg PO BEDTIME insomnia #7 caps 12/25/20 (Benadryl) melatonin 10 mg tablet,extended 10 mg PO .nightly #5 tabs 01/07/21 release cefdinir 300 mg capsule 300 mg PO BID Otitis media 10 days 04/14/21 #20 caps ondansetron HCl 4 mg tablet 4 mg PO Q8H PRN nausea and 04/14/21 (Zofran) vomiting #14 tabs metoprolol succinate 50 mg 50 mg PO DAILY #14 tabs 05/22/21 tablet,extended release 24 hr ciprofloxacin 0.3 %-dexamethasone 4 drp otic (ears) BID 7 days 05/26/21 0.1 % ear drops,suspension (Ciprodex) polyethylene glycol 3350 17 17 g PO DAILY PRN constipation 07/31/21 gram/dose oral powder (Miralax) #238 grams hydrocortisone acetate 25 mg 25 mg IA BID #12 ea 08/01/21 rectal suppository (Anucort-HC) cefuroxime axetil 500 mg tablet 500 mg PO BID 7 days #14 tabs 09/01/21 meclizine 25 mg tablet 25 mg PO TID PRN dizziness #10 tabs 09/01/21 zolpidem 5 mg tablet (Ambien) 5 mg PO BEDTIME PRN sleep #2 tabs 10/29/21 zolpidem 5 mg tablet (Ambien) 5 mg PO BEDTIME PRN sleep #2 tabs 10/29/21 levofloxacin 500 mg tablet 500 mg PO DAILY 7 days #7 tabs 07/23/22 levofloxacin 500 mg tablet 500 mg PO DAILY #6 tabs 08/25/22 ofloxacin 0.3 % ear drops 10 drp otic (ears) DAILY 7 days #5 08/25/22 mL hydrocortisone 2.5 % topical cream 1 appl IA BEDTIME PRN hemorrhoids 09/20/22 with perineal applicator #30 grams docusate sodium 100 mg capsule 100 mg PO BID PRN Constipation #14 12/06/22 (Colace) caps phenylephrine 0.25 %-mineral oil 1 appl IA BID PRN hemorrhoids #56 12/06/22 14 %-petrolatm 74.9 % rectal grams ointment (Hemorrhoidal(phenyleph-min oil-petrolat)) polyethylene glycol 3350 17 17 g PO BID #119 grams 12/06/22 gram/dose oral powder (Miralax) cefuroxime axetil 500 mg tablet 500 mg PO BID 10 days #20 tabs 12/16/22 alprazolam 0.25 mg tablet 0.25 mg PO QID #7 tabs 01/04/23 ofloxacin 0.3 % ear drops 5 drp otic (ear) left BID 7 days 01/06/23 #5 mL alprazolam 0.25 mg tablet 0.25 mg PO TID PRN anxiety #7 tabs 01/11/23 alprazolam 0.25 mg tablet 0.25 mg PO TID PRN anxiety #3 tabs 02/02/23 alprazolam 0.5 mg tablet (Xanax) 0.5 mg PO BEDTIME PRN anxiety #7 04/20/23 tabs metoprolol succinate 50 mg 50 mg PO DAILY #7 tabs 05/18/23 tablet,extended release 24 hr lisinopril 40 mg tablet 40 mg PO QPM #90 tabs 05/22/23 ondansetron 4 mg disintegrating 4 mg PO Q8H PRN nausea and 07/06/23 tablet vomiting #10 tabs hydrocortisone 1 % topical cream 1 appl topical BID PRN rash #28.4 08/03/23 grams phenylephrine 0.25 %-mineral oil 1 appl IA BID PRN hemorrhoids #57 08/17/23 14 %-petrolatm 74.9 % rectal grams ointment (Preparation H) polyethylene glycol 3350 17 17 g PO BID #119 grams 08/17/23 gram/dose oral powder (Miralax) diphenhydramine HCl 25 mg tablet 25 mg PO TID PRN Pruritus #20 tabs 08/25/23 (Benadryl Allergy) phenylephrine 0.25 %-cocoa butter 1 supp IA BID #24 ea 08/25/23 88.44 % rectal suppository (Preparation H(phenyleph,cocoa buttr)) phenylephrine 0.25 %-mineral oil 1 appl IA BID #28 grams 08/25/23 14 %-petrolatm 74.9 % rectal ointment (Preparation H) fluticasone propionate 50 2 spray intranasal DAILY #16 grams 09/16/23 mcg/actuation nasal spray,suspension (Flonase Allergy Relief) loratadine 10 mg tablet 10 mg PO DAILY #30 tabs 09/16/23 menthol 0.44 %-zinc oxide 20.6 % 1 appl topical QID PRN skin 09/22/23 topical ointment (Calmoseptine) irritation #113 grams Allergies Allergy/AdvReac Type Severity Reaction Status Date / Time penicillin G [Penicillin G] Allergy Severe ITCHY/RASH Verified 09/28/23 22:41 Sulfa (Sulfonamide Allergy Severe ITCHY,RASH, Verified 09/28/23 22:41 Antibiotics) rash [Sulfa (Sulfonamides)] trimethoprim [From Bactrim] Allergy Severe HIVES Verified 09/28/23 22:41 penicillin V Allergy Unknown rash Verified 09/28/23 22:41 sulfacetamide Allergy Unknown unknown Verified 09/28/23 22:41 [From Sulfacet-R] sulfur [From Sulfacet-R] Allergy Unknown unknown Verified 09/28/23 22:41 Review of Systems Constitutional: Constitutional: Reports no additional constitutional complaints, Denies chills, Denies fever(s) and Denies night sweats Eyes: Eyes: Reports no additional eye complaints, Denies blurry vision, Denies change in vision, Denies diplopia, Denies eye discharge, Denies loss of vision and Denies eye pain ENT: Denies dizziness Cardiovascular: Cardiovascular: Reports no additional cardiovascular complaints, Denies chest pain, Denies lightheadedness, Denies Loss of Consciousness and Denies dyspnea Respiratory: Respiratory: Reports no additional respiratory complaints and Denies dyspnea Gastrointestinal: Gastrointestinal: Reports no additional gastrointestinal complaints, Denies abdominal pain, Denies melena, Denies hematochezia, Denies change in bowel habits and Denies change in stool character Genitourinary: Genitourinary: Denies hematuria, Denies urinary frequency, Denies dysuria, Denies urinary incontinence, Denies urinary hesitancy and Denies urinary urgency Musculoskeletal: Musculoskeletal: Reports no additional musculoskeletal complaints, Denies numbness and Denies tingling Neurologic: Denies dizziness, Denies loss of vision, Denies numbness and Denies tingling Psychiatric: Psychiatric: Reports no additional psychiatric complaints Endocrine: Endocrine: Reports no additional endocrine complaints Hematologic/Lymphatic: Hematologic/Lymphatic: Reports no additional hematologic/lymphatic complaints Allergic/Immunologic: Allergic/Immunologic: Reports no additional allergic/immunologic complaints PMFSH Past Medical History Attestation statement: The following information was validated with the patient. Source: old records reviewed and nursing notes reviewed Medical History Bleeding hemorrhoids Essential hypertension PVC (premature ventricular contraction) PAC (premature atrial contraction) SVT (supraventricular tachycardia) Chronic constipation High blood pressure Vertigo Dementia Arthritis Anxiety Surgical History No pertinent past surgical history Social History Alcohol intake: never Patient Tobacco Use Status: Never used Tobacco Advance Directives: No Physical Exam ED Const General: cooperative, no acute distress, alert and awake Nutritional Appearance: well nourished Orientation/consciousness: patient oriented x3 Limitations: no limitations HENMT Head: Yes normal to inspection and Yes atraumatic Ears: hearing grossly normal bilaterally and external ears normal General nose exam: Normal external nose present, no nasal discharge noted and no epistaxis Face and sinus: Yes normal facial exam, No abrasion and No laceration Mouth: Normal oral and palatal mucosa present, no drooling and no muffled voice Eyes General: appearance normal, both eyes and all related structures Periorbital: periorbital findings normal Eyelids: Yes eyelids normal Conjunctivae: conjunctivae normal Pupils: Equal, round and reactive pupils present EOM: EOMs intact bilaterally Neck Neck: Yes normal visual inspection, Yes full ROM and Yes no lymphadenopathy Chest Chest palpation & inspection: normal inspection of the chest Resp Effort & Inspection: normal respiratory effort and able to speak in complete sentences GI Inspection: Yes normal to inspection Neuro General: patient oriented x3 and moves all extremities Cranial nerves: Yes Equal, round and reactive pupils present Cognition (Neuro): normal cognition Motor exam (neuro): 5/5 motor strength present throughout Sensory Exam: Normal double simultaneous stimulation for sensation Coordination: [id number] test normal Extrem General: Yes normal to inspection, Yes full ROM and Yes capillary refill normal Psych Appearance: grossly normal Mental Status: mental status grossly normal Affect: normal affect Attitude: cooperative Thought process: Normal thought process present Thought content: Normal thought content present Insight: Good insight present (Psych) Medical Decision Making Medical Decision Making MDM Narrative: Patient is an 78 year old assigned female at with a history of anxiety and HTN presenting to the emergency department today with high blood pressure. Patient's physical exam was unremarkable. Patient's blood pressure was 144/70. I explained my physical exam findings to the patient. I answered all questions asked by the patient. Patient stated that she has a doctors appointment in this building in 2 hours and would like to stay in the department until it is time for her appointment. I stressed the importance of the patient taking her medication as prescribed. I stressed the importance of the patient following up with her primary care provider. I stressed the importance of the patient returning to the emergency department immediately if she were to develop any dizziness, shortness of breath, difficulty breathing, chest pain, blurry vision, loss of vision, nausea, vomiting, abdominal pain, fever, chills, back pain, or any other complaints. Patient verbalized agreement and understanding with this treatment plan and discharge. Differential Diagnosis Differential Diagnoses: The differential diagnosis associated with the presentation includes Elevated blood pressure reading HTN Anxiety Blood pressure check Independent Historian Clinical information obtained from an independent historian. History obtained from or confirmed by: EMS (EMS provided additional history and confirmed the history provided by the patient.) Chronic Conditions Patient?s care impacted by: Hypertension Discharge Plan Discharge Clinical Impression: Blood pressure check Patient Disposition: Home, Self-Care Instructions: How to Take a Blood Pressure (ED) Additional Instructions: Follow up with your primary care provider. Return to the emergency department immediately if your symptoms worsen or if you develop any dizziness, shortness of breath, difficulty breathing, chest pain, blurry vision, loss of vision, nausea, vomiting, abdominal pain, fever, chills, back pain, or any other complaints. Steve un seguimiento con clark proveedor de atenci?n primaria. Regrese al departamento de emergencias inmediatamente si kesli s?ntomas empeoran o si presenta mareos, dificultad para respirar, dificultad para respirar, dolor en el pecho, visi?n borrosa, p?rdida de la visi?n, n?useas, v?mitos, dolor abdominal, fiebre, escalofr?os, dolor de espalda o cualquier otras quejas. Prescriptions: No Action escitalopram oxalate 10 mg tablet 10 mg PO DAILY Qty: 30 1RF metoprolol succinate 50 mg tablet extended release 24 hr 50 mg PO DAILY Qty: 90 2RF aspirin 81 mg tablet,delayed release (DR/EC) 81 mg PO BEDTIME Qty: 90 2RF polyethylene glycol 3350 [Miralax] 17 gram/dose powder 17 g PO DAILY PRN (Reason: constipation) Qty: 238 0RF lisinopril 40 mg tablet 40 mg PO QPM Qty: 90 0RF Rx Instructions: Please call and schedule cardiology appt acetaminophen 325 mg capsule 325 mg PO QID PRN (Reason: fever or pain) Qty: 30 0RF melatonin 10 mg tablet extended release 10 mg PO .nightly Qty: 5 0RF metoprolol succinate 50 mg tablet extended release 24 hr 50 mg PO DAILY Qty: 14 0RF ciprofloxacin-dexamethasone [Ciprodex] 0.3-0.1 % drops,suspension 4 drp otic (ears) BID 7 Days 0RF alprazolam 0.5 mg Tablet 0.5 mg PO TID PRN (Reason: Anxiety) hydroxyzine HCl 50 mg Tablet 50 mg PO TID PRN (Reason: Anxiety) mirtazapine 45 mg Tablet 45 mg PO BEDTIME multivitamin Capsule 1 cap PO DAILY sertraline 50 mg Tablet 50 mg PO BEDTIME aripiprazole 2 mg Tablet 2 mg PO BEDTIME cholecalciferol (vitamin D3) 25 mcg (1,000 unit) Tablet 25 mcg PO BID omeprazole 20 mg Tablet,Delayed Release (Dr/Ec) 20 mg PO DAILY linaclotide 145 mcg Capsule 145 mcg PO DAILY diphenhydramine HCl [Benadryl] 25 mg capsule 25 mg PO BEDTIME Qty: 7 0RF cefdinir 300 mg capsule 300 mg PO BID 10 Days Qty: 20 0RF ondansetron HCl [Zofran] 4 mg tablet 4 mg PO Q8H PRN (Reason: nausea and vomiting) Qty: 14 0RF cefuroxime axetil 500 mg tablet 500 mg PO BID 7 Days Qty: 14 0RF meclizine 25 mg tablet 25 mg PO TID PRN (Reason: dizziness) Qty: 10 0RF levofloxacin 500 mg tablet 500 mg PO DAILY 7 Days Qty: 7 0RF cefuroxime axetil 500 mg tablet 500 mg PO BID 10 Days Qty: 20 0RF alprazolam 0.25 mg tablet 0.25 mg PO QID Qty: 7 0RF levofloxacin 500 mg tablet 500 mg PO DAILY Qty: 6 0RF Rx Instructions: start on 08/26 ofloxacin 0.3 % drops 10 drp otic (ears) DAILY 7 Days Qty: 5 0RF Rx Instructions: can substitute eye drops if necessary hydrocortisone 2.5 % cream with perineal applicator 1 appl IA BEDTIME PRN (Reason: hemorrhoids) Qty: 30 0RF Hemorrhoidal(PE-min oil-emma) 0.25-14-74.9 % ointment 1 appl IA BID PRN (Reason: hemorrhoids) Qty: 56 0RF polyethylene glycol 3350 [Miralax] 17 gram/dose powder 17 g PO BID Qty: 119 0RF docusate sodium [Colace] 100 mg capsule 100 mg PO BID PRN (Reason: Constipation) Qty: 14 0RF ofloxacin 0.3 % drops 5 drp otic (ear) left BID 7 Days Qty: 5 0RF alprazolam 0.25 mg tablet 0.25 mg PO TID PRN (Reason: anxiety) Qty: 7 0RF alprazolam [Xanax] 0.5 mg tablet 0.5 mg PO BEDTIME PRN (Reason: anxiety) Qty: 7 0RF metoprolol succinate 50 mg tablet extended release 24 hr 50 mg PO DAILY Qty: 7 0RF Preparation H 0.25-14-74.9 % ointment 1 appl IA BID PRN (Reason: hemorrhoids) Qty: 57 0RF polyethylene glycol 3350 [Miralax] 17 gram/dose powder 17 g PO BID Qty: 119 0RF Preparation H 0.25-14-74.9 % ointment 1 appl IA BID Qty: 28 0RF Preparation H(pe,cb) 0.25-88.44 % suppository 1 supp IA BID Qty: 24 0RF diphenhydramine HCl [Benadryl Allergy] 25 mg tablet 25 mg PO TID PRN (Reason: Pruritus) Qty: 20 0RF loratadine 10 mg tablet 10 mg PO DAILY Qty: 30 0RF fluticasone propionate [Flonase Allergy Relief] 50 mcg/actuation spray,suspension 2 spray intranasal DAILY Qty: 16 0RF Rx Instructions: administer into each nostril alprazolam 0.25 mg tablet 0.25 mg PO TID PRN (Reason: anxiety) Qty: 3 0RF ondansetron 4 mg tablet,disintegrating 4 mg PO Q8H PRN (Reason: nausea and vomiting) Qty: 10 0RF hydrocortisone 1 % cream 1 appl topical BID PRN (Reason: rash) Qty: 28.4 0RF Calmoseptine 0.44-20.6 % ointment 1 appl topical QID PRN (Reason: skin irritation) Qty: 113 0RF magnesium citrate Solution 150 ml PO DAILY PRN (Reason: constipation) Qty: 296 0RF Rx Instructions: take only when needed for constipation hydrocortisone acetate [Anucort-HC] 25 mg suppository 25 mg IA BID Qty: 12 3RF zolpidem [Ambien] 5 mg tablet 5 mg PO BEDTIME PRN (Reason: sleep) Qty: 2 0RF zolpidem [Ambien] 5 mg tablet 5 mg PO BEDTIME PRN (Reason: sleep) Qty: 2 0RF menthol-zinc oxide [Calmoseptine] 0.44-20.6 % ointment 1 appl topical QID PRN (Reason: skin irritation) Qty: 113 0RF Referrals: Name,MD Nitin [Primary Care Provider] - Print Language: Setswana
[2023-10-06 07:22] VITALS: BP 144/72; PULSE 76; RESP 20; TEMP 37.4; O2SAT 98; BMI 32.0
--- NOTE | 2023-10-06 07:29 | PC.NURSE ---
ARRIVED VIA EMS, PT REPORTS THAT SHE CHECK HER B/P THIS MORNING AT HOME AND IT WAS HIGH. CURRENT B/P 144/72, CHECKED HERE IN ED. PT DENIES HEADACHE/DIZZINESS/BLURRY VISION. PT RESTING QUIETLY, NO APPARENT DISTRESS.
== END 2023-10-06 08:18 | disposition home or self-care (01) ==
PROVIDERS: Emergency Provider Emergency Medicine; PCP Internal Medicine Geriatric Medicine
DX: Z03.89 Encounter for observation for other suspected diseases and conditions ruled out (principal); I10 Essential (primary) hypertension; F41.9 Anxiety disorder, unspecified; Z79.82 Long term (current) use of aspirin; Z79.899 Other long term (current) drug therapy
CPT/HCPCS: 99282

== ENCOUNTER 2023-10-13 05:42 | Emergency (ER) | payer OTHER, SELFPAY ==
[2023-10-13 05:46] VITALS: BP 130/71; PULSE 78; RESP 16; TEMP 36.2; O2SAT 98; BMI 30.1
--- OUTSIDE RECORDS SUMMARY | 2023-10-13 05:59 | XMS_ITS | Patient Health Record ---
Author Name Unknown Organization [facility] Address [address], [place] [id number] Support Name Relationship Address Phone [facility] , [place] Maciej Noreen Guarantor Unknown [phone] REASON FOR REFERRAL No Information SOCIAL HISTORY Sex Assigned At : Social History Observation Description Sex Assigned At Unknown PLAN OF TREATMENT No Information Insurance Providers Payer Name Payer Address Payer Phone Subscriber Number Group Number Insured Name Patient Relationship to Insured Coverage Start Date Coverage End Date [place] Medicare Part [place] [employer] [address] [place] [id number] Wing Noreen Self - patient is the insured [place] Medicaid Standard [address] [place] [address] [phone] [id number] Wing Noreen Self - patient is the insured
--- OUTSIDE RECORDS SUMMARY | 2023-10-13 05:59 | XMS_ITS | Continuity of Care Document ---
Author Name Unknown Organization [facility] Address [address] [place] [id number]- Care Team Providers Care [employer] Officer Name Role Phone Name Nitin PIKE Primary Care Physician Encounter [facility] Date(s): 10/04/23 - 10/04/[address] [address]- Encounter Diagnosis Elevated blood pressure reading(Final) - 10/04/23 Benzodiazepine dependence(Final) - 10/04/23 Discharge Disposition: A-D/C Home Attending Physician: Lisha Sr MD Admitting Physician: Lisha Sr MD Referring Physician: Not on Staff, Referring MD Allergies, Adverse Reactions, Alerts Substance Reaction Severity Status penicillins Active sulfa drugs Unknown Active Bactrim Active Medications Aspirin Enteric Coated 81 mg oral delayed release tablet TAKE 1 TABLET BY MOUTH AT BEDTIME Start Date: 05/18/20 Status: Ordered D 1000 IU oral tablet TAKE 1 TABLET BY MOUTH TWICE DAILY IN THE MORNING AND AT BEDTIME Start Date: 05/18/20 Status: Ordered Daily Multiple Vitamins oral tablet TAKE 1 TABLET BY MOUTH EVERY MORNING Start Date: 05/18/20 Status: Ordered Daily Multiple Vitamins oral tablet TAKE 1 TABLET BY MOUTH EVERY MORNING Start Date: 05/18/20 Status: Ordered Docusate Sodium 100 Mg Softgel TAKE 1 CAPSULE BY MOUTH TWICE DAILY Start Date: 05/18/20 Status: Ordered Linzess 145 mcg oral capsule TAKE 1 CAPSULE BY MOUTH EVERY DAY ON AN EMPTY STOMACH 30 MINUTES BEFORE A MEAL. DO NOT BREAK, CRUSH, DISSOLVE OR CHEW Start Date: 05/18/20 Status: Ordered Lisinopril Tablet By Mouth, Daily, Maintenance, 12/17/13 14:26:28 Start Date: 12/17/13 Status: Ordered LORazepam 0.5 mg oral tablet 1 tablet = 0.5 mg, By Mouth, Daily, PRN as needed for anxiety, # 5 tablet, 0 Refills, Acute 10/06/23 5:06:00 EST, 10/04/23 5:05:00 EST, Tablet, [facility], Partial fill upon patient request if the prescription is for a schedule II... Start Date: 10/04/23 Stop Date: 10/06/23 Status: Ordered Metoprolol Succinate ER 50 mg oral tablet, extended release TAKE 1 TABLET BY MOUTH EVERY MORNING Start Date: 05/18/20 Status: Ordered omeprazole 40 mg oral enteric coated capsule 1 capsule = 40 mg, By Mouth, Daily, # 30 capsule, 0 Refills, Maintenance, 05/18/20 14:12:00 EDT, ECCapsule Start Date: 05/18/20 Status: Ordered rosuvastatin 20 mg oral tablet TAKE 1 TABLET BY MOUTH AT BEDTIME Start Date: 05/18/20 Status: Ordered Xanax 0.5 mg oral tablet 1 tablet = 0.5 mg, By Mouth, 3 times a day, 0 Refills, Maintenance, 12/17/13 14:24:45 Start Date: 12/17/13 Status: Ordered Vital Signs Most recent to oldest [Reference Range]: 1 2 3 Height 170 cm (10/04/23 3:09 AM) Weight 60 kg (10/04/23 3:09 AM) Oxygen Saturation [94-100 %] 98 % (10/04/23 5:00 AM) 98 % (10/04/23 3:09 AM) 98 % (10/04/23 3:04 AM) Pulse Rate [55-90 bpm] 76 bpm (10/04/23 5:00 AM) 80 bpm (10/04/23:09 AM) 80 bpm (10/04/23 3:04 AM) Blood Pressure [90-138/55-84 mm Hg] 136/62mm Hg (10/04/23 5:00 AM) 142/70mm Hg *H* (10/04/23 3:09 AM) 142/70mm Hg *H* (10/04/23 3:04 AM) Respiratory Rate [16-30 br/min] 22 br/min (10/04/23 5:00 AM) 18 br/min (10/04/23 3:09 AM) 18 br/min (10/04/23 3:04 AM) Temperature [96.8-100.4 DegF] 98.8 DegF (10/04/23 3:09 AM) 98.8 DegF (10/04/23 3:04 AM) Mode of Delivery (Oxygen) Room air (10/04/23 5:00 AM) Room air (10/04/23 3:09 AM) Room air (10/04/23 3:04 AM) Blood pressure sites Arm, right (10/04/23 5:00 AM) Arm, right (10/04/23 3:09 AM) Arm, right (10/04/23 3:04 AM) Temperature Route Oral (10/04/23 3:09 AM) Oral (10/04/23 3:04 AM) Dry Weight 60 kg (10/04/23 3:09 AM) Social History Social History Type Response Smoking Status Never smoker entered on: 11/27/14 Sex Patient Care team information Care Team Personnel Name: Nitin Echevarria MD Position: [facility] Outreach Member Role: PCP Address: Address: [address] [place] [id number]- Name: Layla Mayo RN Position: [facility] Hospital Bi Application Developer Member Role: Primary Care Nurse Name: Jasmyn Proctor RN Position: [facility] RN Member Role: Primary Care Nurse Name: Tracy Ortega Position: [facility] ED TA [facility] Name: Lisha Sr MD Position: [facility] ED Medicine MD Member Role: Admitting Physician Address: Address: [address] [place] [id number]- Name: Jackie Wilkerson RN Position: [facility] ED RN W/OE and Tasks Member Role: Patient Care Provider Name: Pola Mares DO Position: [facility] Resident Member Role: ED Resident Address: Address: [address] [place] [id number]- Care Team Related Persons Name: GROVER CASTILLO Address: home [address] [place] [id number] Name: AZNDER MEJIA Address: home [address] [place] [id number]
== END 2023-10-13 11:23 | disposition left against medical advice (07) ==
PROVIDERS: Emergency Provider Emergency Medicine
DX: I10 Essential (primary) hypertension (principal)
CPT/HCPCS: 99281

== ENCOUNTER 2023-10-13 10:19 | Outpatient (REF) | payer OTHER, SELFPAY ==
[2023-10-13 11:00] LABS: B Type Natriuretic Peptide 37 pg/mL (<100)
[2023-10-13 11:02] LABS: Anion Gap 12 (12-20); Blood Urea Nitrogen 19 mg/dL (9-16); Calcium 9.5 mg/dL (8.4-10.2); Carbon Dioxide 27 mmol/L (22-29); Chloride 99 mmol/L (96-108); Estimated Glomerular Filt Rate 54; Glucose Random 100 mg/dL (60-115); Potassium 4.4 mmol/L (3.3-5.1); Sodium 134 mmol/L (135-145)
== END 2023-10-13 10:20 | disposition home or self-care (01) ==
LOC: HO.LAB 10:19
PROVIDERS: Absent Provider Internal Medicine Geriatric Medicine; PCP Internal Medicine Geriatric Medicine; Visit Provider Emergency Medicine
DX: R60.0 Localized edema (principal)
CPT/HCPCS: 36415; 80048; 83880

== ENCOUNTER 2023-10-14 01:27 | Emergency (ER) | payer OTHER, SELFPAY ==
--- NOTE | 2023-10-14 | ECG_ITS ---
Test Reason : CHEST PAIN Blood Pressure : / mmHG Vent. Rate : 078 BPM Atrial Rate : 078 BPM P-R Int : 180 ms QRS Dur : 096 ms QT Int : 368 ms P-R-T Axes : 038 -26 009 degrees QTc Int : 419 ms Sinus rhythm with marked sinus arrhythmia Moderate voltage criteria for LVH, may be normal variant ( R in aVL , Maycol product ) Borderline ECG When compared with ECG of 28-SEP-2023 22:37, No significant change was found Referred By: Generic ED Physician Electronically Signed By:ZANDRA ENNIS
[2023-10-14 01:42] VITALS: BP 132/70; BP 144/94; PULSE 81; PULSE 85; RESP 20; TEMP 36.7; O2SAT 99; BMI 26.8
[2023-10-14 04:43] VITALS: BP 162/77; PULSE 85; RESP 17; TEMP 36.6; O2SAT 99
[2023-10-14 04:59] LABS: Hematocrit 33.7 % (37.0-47.0); Hemoglobin 11.2 g/dl (12.0-16.0); Mean Corpuscular HGB Conc 33.2 g/dl (31.0-35.0); Mean Corpuscular Hemoglobin 28.6 pg (27.0-33.0); Mean Platelet Volume 8.5 fL (9.4-12.3); Platelet Count 274 X10*3/uL (160-400); Red Blood Count 3.92 X10*6/uL (4.20-5.50); Red Cell Distribution Width 12.9 % (11.0-16.0); White Blood Count 10.6 X10*3/uL (4.8-10.8)
[2023-10-14 05:15] LABS: Alanine Aminotransferase 18 U/L (0-31); Albumin Level 4.4 g/dL (3.5-5.0); Alkaline Phosphatase 65 U/L (39-117); Anion Gap 15 (12-20); Aspartate Amino Transferase 24 U/L (5-31); Bilirubin Total 0.4 mg/dL (0.0-1.0); Blood Urea Nitrogen 16 mg/dL (9-16); Calcium 9.7 mg/dL (8.4-10.2); Carbon Dioxide 27 mmol/L (22-29); Chloride 96 mmol/L (96-108); Creatinine Clr Calc Pharmacy 55.8; Estimated Glomerular Filt Rate > 60; Glucose Random 116 mg/dL (60-115); Sodium 133 mmol/L (135-145); Total Protein 8.4 g/dL (6.5-8.0)
[2023-10-14 05:20] LABS: Troponin-I High Sensitivity < 2.7 ng/L (<3.5-17.0)
[2023-10-14 05:39] VITALS: PULSE 72
--- NOTE | 2023-10-14 06:02 | ED_ITS ---
HPI - Arrhythmia/Palpitations General Chief Complaint: Arrhythmia/Palpitations Stated Complaint: htn/anxiety Time Seen by Provider: 10/14/23 05:41 Source: patient and old records reviewed Mode of arrival: EMS Limitations: no limitations History of Present Illness HPI narrative: 78 yo female with PMH of anxiety, HTN, SVT here with c/o palpitations starting yesterday on and off no pain no chest pain and feels her ankles are more swollen from walking a lot. She states she is compliant with medications and feels better now. No increased Na intake. She has no other complaints. Onset (ago): day(s) Duration: now resolved Severity: mild Context: occurred during rest Arrhythmia history: SVT Associated symptoms: denies other symptoms Related Data Home Medications Medication Instructions Recorded Confirmed alprazolam 0.5 mg tablet 0.5 mg PO TID PRN Anxiety 08/09/20 09/22/23 aripiprazole 2 mg tablet 2 mg PO BEDTIME 08/09/20 09/22/23 cholecalciferol (vitamin D3) 25 25 mcg PO BID 08/09/20 09/22/23 mcg (1,000 unit) tablet hydroxyzine HCl 50 mg tablet 50 mg PO TID PRN Anxiety 08/09/20 09/22/23 linaclotide 145 mcg capsule 145 mcg PO DAILY 08/09/20 09/22/23 mirtazapine 45 mg tablet 45 mg PO BEDTIME 08/09/20 09/22/23 multivitamin 1 cap PO DAILY 08/09/20 09/22/23 omeprazole 20 mg tablet,delayed 20 mg PO DAILY 08/09/20 09/22/23 release sertraline 50 mg tablet 50 mg PO BEDTIME 08/09/20 09/22/23 Previous Rx's Medication Instructions Recorded escitalopram oxalate 10 mg tablet 10 mg PO DAILY #30 tabs 09/06/20 acetaminophen 325 mg capsule 325 mg PO QID PRN fever or pain 09/16/20 #30 caps aspirin 81 mg tablet,delayed 81 mg PO BEDTIME #90 tabs 09/28/20 release metoprolol succinate 50 mg 50 mg PO DAILY #90 tabs 09/28/20 tablet,extended release 24 hr menthol 0.44 %-zinc oxide 20.6 % 1 appl topical QID PRN skin 12/13/20 topical ointment (Calmoseptine) irritation #113 grams magnesium citrate 150 ml PO DAILY PRN constipation 12/14/20 #296 mL diphenhydramine HCl 25 mg capsule 25 mg PO BEDTIME insomnia #7 caps 12/25/20 (Benadryl) melatonin 10 mg tablet,extended 10 mg PO .nightly #5 tabs 01/07/21 release cefdinir 300 mg capsule 300 mg PO BID Otitis media 10 days 04/14/21 #20 caps ondansetron HCl 4 mg tablet 4 mg PO Q8H PRN nausea and 04/14/21 (Zofran) vomiting #14 tabs metoprolol succinate 50 mg 50 mg PO DAILY #14 tabs 05/22/21 tablet,extended release 24 hr ciprofloxacin 0.3 %-dexamethasone 4 drp otic (ears) BID 7 days 05/26/21 0.1 % ear drops,suspension (Ciprodex) polyethylene glycol 3350 17 17 g PO DAILY PRN constipation 07/31/21 gram/dose oral powder (Miralax) #238 grams hydrocortisone acetate 25 mg 25 mg MD BID #12 ea 08/01/21 rectal suppository (Anucort-HC) cefuroxime axetil 500 mg tablet 500 mg PO BID 7 days #14 tabs 09/01/21 meclizine 25 mg tablet 25 mg PO TID PRN dizziness #10 tabs 09/01/21 zolpidem 5 mg tablet (Ambien) 5 mg PO BEDTIME PRN sleep #2 tabs 10/29/21 zolpidem 5 mg tablet (Ambien) 5 mg PO BEDTIME PRN sleep #2 tabs 10/29/21 levofloxacin 500 mg tablet 500 mg PO DAILY 7 days #7 tabs 07/23/22 levofloxacin 500 mg tablet 500 mg PO DAILY #6 tabs 08/25/22 ofloxacin 0.3 % ear drops 10 drp otic (ears) DAILY 7 days #5 08/25/22 mL hydrocortisone 2.5 % topical cream 1 appl MD BEDTIME PRN hemorrhoids 09/20/22 with perineal applicator #30 grams docusate sodium 100 mg capsule 100 mg PO BID PRN Constipation #14 12/06/22 (Colace) caps phenylephrine 0.25 %-mineral oil 1 appl MD BID PRN hemorrhoids #56 12/06/22 14 %-petrolatm 74.9 % rectal grams ointment (Hemorrhoidal(phenyleph-min oil-petrolat)) polyethylene glycol 3350 17 17 g PO BID #119 grams 12/06/22 gram/dose oral powder (Miralax) cefuroxime axetil 500 mg tablet 500 mg PO BID 10 days #20 tabs 12/16/22 alprazolam 0.25 mg tablet 0.25 mg PO QID #7 tabs 01/04/23 ofloxacin 0.3 % ear drops 5 drp otic (ear) left BID 7 days 01/06/23 #5 mL alprazolam 0.25 mg tablet 0.25 mg PO TID PRN anxiety #7 tabs 01/11/23 alprazolam 0.25 mg tablet 0.25 mg PO TID PRN anxiety #3 tabs 02/02/23 alprazolam 0.5 mg tablet (Xanax) 0.5 mg PO BEDTIME PRN anxiety #7 04/20/23 tabs metoprolol succinate 50 mg 50 mg PO DAILY #7 tabs 05/18/23 tablet,extended release 24 hr lisinopril 40 mg tablet 40 mg PO QPM #90 tabs 05/22/23 ondansetron 4 mg disintegrating 4 mg PO Q8H PRN nausea and 07/06/23 tablet vomiting #10 tabs hydrocortisone 1 % topical cream 1 appl topical BID PRN rash #28.4 08/03/23 grams phenylephrine 0.25 %-mineral oil 1 appl MD BID PRN hemorrhoids #57 08/17/23 14 %-petrolatm 74.9 % rectal grams ointment (Preparation H) polyethylene glycol 3350 17 17 g PO BID #119 grams 08/17/23 gram/dose oral powder (Miralax) diphenhydramine HCl 25 mg tablet 25 mg PO TID PRN Pruritus #20 tabs 08/25/23 (Benadryl Allergy) phenylephrine 0.25 %-cocoa butter 1 supp MD BID #24 ea 08/25/23 88.44 % rectal suppository (Preparation H(phenyleph,cocoa buttr)) phenylephrine 0.25 %-mineral oil 1 appl MD BID #28 grams 08/25/23 14 %-petrolatm 74.9 % rectal ointment (Preparation H) fluticasone propionate 50 2 spray intranasal DAILY #16 grams 09/16/23 mcg/actuation nasal spray,suspension (Flonase Allergy Relief) loratadine 10 mg tablet 10 mg PO DAILY #30 tabs 09/16/23 menthol 0.44 %-zinc oxide 20.6 % 1 appl topical QID PRN skin 09/22/23 topical ointment (Calmoseptine) irritation #113 grams Allergies Allergy/AdvReac Type Severity Reaction Status Date / Time penicillin G [Penicillin G] Allergy Severe ITCHY/RASH Verified 10/06/23 07:28 Sulfa (Sulfonamide Allergy Severe ITCHY,RASH, Verified 10/06/23 07:28 Antibiotics) rash [Sulfa (Sulfonamides)] trimethoprim [From Bactrim] Allergy Severe HIVES Verified 10/06/23 07:28 penicillin V Allergy Unknown rash Verified 10/06/23 07:28 sulfacetamide Allergy Unknown unknown Verified 10/06/23 07:28 [From Sulfacet-R] sulfur [From Sulfacet-R] Allergy Unknown unknown Verified 10/06/23 07:28 Review of Systems 2 Review of Systems: Constitutional : No Fever, No Chills, No Fatigue ENT/Mouth : No sore throat, No Rhinorrhea Eyes: No Eye Pain, No Swelling, No Redness Cardiovascular : No Chest Pain, No SOB, No Dyspnea on Exertion, pos palpitations Respiratory : No Cough, No Sputum Gastrointestinal : No Nausea, No Vomiting, No Diarrhea, No abdominal Pain Genitourinary : No Dysuria, No Urinary Frequency, No Hematuria, Musculoskeletal : No joint pain, No Myalgias, No Joint Swelling Skin : No Skin Lesions, No rash Neuro : No Weakness, No Numbness, No Dizziness, no Headache Psych : pos Anxiety/Panic, No Depression All other systems reviewed and are negative [facility] Past Medical History Source: old records reviewed Medical History Bleeding hemorrhoids Essential hypertension PVC (premature ventricular contraction) PAC (premature atrial contraction) SVT (supraventricular tachycardia) Chronic constipation High blood pressure Vertigo Dementia Arthritis Anxiety Surgical History No pertinent past surgical history Social History Social History Alcohol intake: never Patient Tobacco Use Status: Never used Tobacco Smoked in Last 30 Days: Yes Advance Directives: Yes Advance Directives Information Provided: Yes Advance Directives on File: No Physical Exam 2 Vital Signs: Vital Signs: Last Vital Signs Temp 97.8 F 10/14/23 04:43 Pulse 85 10/14/23 04:43 Resp 17 10/14/23 04:43 BP 162/77 H 10/14/23 04:43 Pulse Ox 99 10/14/23 04:43 O2 Del Method Room Air 10/14/23 04:43 BMI result Body Mass Index 26.8 Appearance: Alert. Oriented X3. No acute distress. Eyes: Pupils equal, round and reactive to light. ENT: Pharynx normal. Neck: Normal inspection. Neck supple. CVS: Normal heart rate and rhythm. Pulses normal. Respiratory: No respiratory distress. Breath sounds normal. Abdomen: Soft and non-tender. Skin: Skin warm and dry. Normal skin color. Normal skin turgor. Extremities: No lower extremity edema. No calf ttp I do not appreciate swelling around the ankles Neuro: Oriented X 3. No motor deficit. No sensory deficit. Medical Decision Making Medical Decision Making [facility] Narrative: 78 yo female with PMH of anxiety, HTN, SVT here with c/o palpitations here with chronic palpitations, anxiety, worried - at this time will obtain EKG, basic labs, I do not see swelling around the ankles, no CP/SOB to suggest ACS or VTE. Benadryl for itching rash on arms - no signs of cellulitis. Differential Diagnosis Differential Diagnoses: The differential diagnosis associated with the presentation includes anxiety, palpitations, HTN Admission/Observation Consideration of admission/observation: Escalation of care including admission/observation considered labs at baseline, stable for DC Lab Data [facility] Lab Attestation statement: I reviewed the patient's lab results. 10/14/23 04:53 10/14/23 04:53 Labs: Lab Results 10/14/23 Range/Units 04:53 WBC 10.6 (4.8-10.8) X10*3/uL RBC 3.92 L (4.20-5.50) X10*6/uL Hgb 11.2 L (12.0-16.0) g/dl Hct 33.7 L (37.0-47.0) % MCV 86.0 (80.0-98.0) fL MCH 28.6 (27.0-33.0) pg MCHC 33.2 (31.0-35.0) g/dl RDW 12.9 (11.0-16.0) % Plt Count 274 (160-400) X10*3/uL MPV 8.5 L (9.4-12.3) fL Absolute Nucleated RBC 0.000 (0.0-0.012) X10*3/uL Nucleated RBC % (auto) 0.0 (0.0-0.2) /100WBC Sodium 133 L (135-145) mmol/L Potassium 5.0 (3.3-5.1) mmol/L Chloride 96 (96-108) mmol/L Carbon Dioxide 27 (22-29) mmol/L Anion Gap 15 (12-20) BUN 16 (9-16) mg/dL Creatinine 0.89 (0.5-1.4) mg/dL Estim Creat Clear Calc 55.8 Estimated GFR > 60 Random Glucose 116 H (60-115) mg/dL Calcium 9.7 (8.4-10.2) mg/dL Total Bilirubin 0.4 (0.0-1.0) mg/dL AST 24 (5-31) U/L ALT 18 (0-31) U/L Alkaline Phosphatase 65 (39-117) U/L Troponin I High Sens < 2.7 (<3.5-17.0) ng/L Total Protein 8.4 H (6.5-8.0) g/dL Albumin 4.4 (3.5-5.0) g/dL Independent Interpretation I performed an independent interpretation of an: EKG Interpretation: Rate: 78 Rhythm: NSR [place]: left Normal P waves. Normal MALIK. Normal QRS complex. ST T wave : no DOUGLAS, inverted t wave III qTC: normal prior studies: no acute ischemia The study has been interpreted contemporaneously by me. . Independent Historian Clinical information obtained from an independent historian. History obtained from or confirmed by: EMS External Record Review External record reviewed: Inpatient record Discharge Plan Discharge Clinical Impression: Headache, Palpitations Patient Disposition: Home, Self-Care Instructions: Heart Palpitations (ED) Additional Instructions: return for worsening symptoms, pain, swelling, difficulty breathing or any other concerns. Regrese si los s?ntomas empeoran, dolor, hinchaz?n, dificultad para respirar o cualquier otra inquietud. Prescriptions: No Action escitalopram oxalate 10 mg tablet 10 mg PO DAILY Qty: 30 1RF metoprolol succinate 50 mg tablet extended release 24 hr 50 mg PO DAILY Qty: 90 2RF aspirin 81 mg tablet,delayed release (DR/EC) 81 mg PO BEDTIME Qty: 90 2RF polyethylene glycol 3350 [Miralax] 17 gram/dose powder 17 g PO DAILY PRN (Reason: constipation) Qty: 238 0RF lisinopril 40 mg tablet 40 mg PO QPM Qty: 90 0RF Rx Instructions: Please call and schedule cardiology appt acetaminophen 325 mg capsule 325 mg PO QID PRN (Reason: fever or pain) Qty: 30 0RF melatonin 10 mg tablet extended release 10 mg PO .nightly Qty: 5 0RF metoprolol succinate 50 mg tablet extended release 24 hr 50 mg PO DAILY Qty: 14 0RF ciprofloxacin-dexamethasone [Ciprodex] 0.3-0.1 % drops,suspension 4 drp otic (ears) BID 7 Days 0RF alprazolam 0.5 mg Tablet 0.5 mg PO TID PRN (Reason: Anxiety) hydroxyzine HCl 50 mg Tablet 50 mg PO TID PRN (Reason: Anxiety) mirtazapine 45 mg Tablet 45 mg PO BEDTIME multivitamin Capsule 1 cap PO DAILY sertraline 50 mg Tablet 50 mg PO BEDTIME aripiprazole 2 mg Tablet 2 mg PO BEDTIME cholecalciferol (vitamin D3) 25 mcg (1,000 unit) Tablet 25 mcg PO BID omeprazole 20 mg Tablet,Delayed Release (Dr/Ec) 20 mg PO DAILY linaclotide 145 mcg Capsule 145 mcg PO DAILY diphenhydramine HCl [Benadryl] 25 mg capsule 25 mg PO BEDTIME Qty: 7 0RF cefdinir 300 mg capsule 300 mg PO BID 10 Days Qty: 20 0RF ondansetron HCl [Zofran] 4 mg tablet 4 mg PO Q8H PRN (Reason: nausea and vomiting) Qty: 14 0RF cefuroxime axetil 500 mg tablet 500 mg PO BID 7 Days Qty: 14 0RF meclizine 25 mg tablet 25 mg PO TID PRN (Reason: dizziness) Qty: 10 0RF levofloxacin 500 mg tablet 500 mg PO DAILY 7 Days Qty: 7 0RF cefuroxime axetil 500 mg tablet 500 mg PO BID 10 Days Qty: 20 0RF alprazolam 0.25 mg tablet 0.25 mg PO QID Qty: 7 0RF levofloxacin 500 mg tablet 500 mg PO DAILY Qty: 6 0RF Rx Instructions: start on 08/26 ofloxacin 0.3 % drops 10 drp otic (ears) DAILY 7 Days Qty: 5 0RF Rx Instructions: can substitute eye drops if necessary hydrocortisone 2.5 % cream with perineal applicator 1 appl MD BEDTIME PRN (Reason: hemorrhoids) Qty: 30 0RF Hemorrhoidal(PE-min oil-emma) 0.25-14-74.9 % ointment 1 appl MD BID PRN (Reason: hemorrhoids) Qty: 56 0RF polyethylene glycol 3350 [Miralax] 17 gram/dose powder 17 g PO BID Qty: 119 0RF docusate sodium [Colace] 100 mg capsule 100 mg PO BID PRN (Reason: Constipation) Qty: 14 0RF ofloxacin 0.3 % drops 5 drp otic (ear) left BID 7 Days Qty: 5 0RF alprazolam 0.25 mg tablet 0.25 mg PO TID PRN (Reason: anxiety) Qty: 7 0RF alprazolam [Xanax] 0.5 mg tablet 0.5 mg PO BEDTIME PRN (Reason: anxiety) Qty: 7 0RF metoprolol succinate 50 mg tablet extended release 24 hr 50 mg PO DAILY Qty: 7 0RF Preparation H 0.25-14-74.9 % ointment 1 appl MD BID PRN (Reason: hemorrhoids) Qty: 57 0RF polyethylene glycol 3350 [Miralax] 17 gram/dose powder 17 g PO BID Qty: 119 0RF Preparation H 0.25-14-74.9 % ointment 1 appl MD BID Qty: 28 0RF Preparation H(pe,cb) 0.25-88.44 % suppository 1 supp MD BID Qty: 24 0RF diphenhydramine HCl [Benadryl Allergy] 25 mg tablet 25 mg PO TID PRN (Reason: Pruritus) Qty: 20 0RF loratadine 10 mg tablet 10 mg PO DAILY Qty: 30 0RF fluticasone propionate [Flonase Allergy Relief] 50 mcg/actuation spray,suspension 2 spray intranasal DAILY Qty: 16 0RF Rx Instructions: administer into each nostril alprazolam 0.25 mg tablet 0.25 mg PO TID PRN (Reason: anxiety) Qty: 3 0RF ondansetron 4 mg tablet,disintegrating 4 mg PO Q8H PRN (Reason: nausea and vomiting) Qty: 10 0RF hydrocortisone 1 % cream 1 appl topical BID PRN (Reason: rash) Qty: 28.4 0RF Calmoseptine 0.44-20.6 % ointment 1 appl topical QID PRN (Reason: skin irritation) Qty: 113 0RF magnesium citrate Solution 150 ml PO DAILY PRN (Reason: constipation) Qty: 296 0RF Rx Instructions: take only when needed for constipation hydrocortisone acetate [Anucort-HC] 25 mg suppository 25 mg MD BID Qty: 12 3RF zolpidem [Ambien] 5 mg tablet 5 mg PO BEDTIME PRN (Reason: sleep) Qty: 2 0RF zolpidem [Ambien] 5 mg tablet 5 mg PO BEDTIME PRN (Reason: sleep) Qty: 2 0RF menthol-zinc oxide [Calmoseptine] 0.44-20.6 % ointment 1 appl topical QID PRN (Reason: skin irritation) Qty: 113 0RF Print Language: [place]i
[2023-10-14] MEDS: diphenhydrAMINE HCL 25 MG CAPSULE PO (06:05)
== END 2023-10-14 06:30 | disposition home or self-care (01) ==
PROVIDERS: Emergency Provider Emergency Medicine; PCP Internal Medicine Geriatric Medicine
DX: R51.9 Headache, unspecified (principal); R00.2 Palpitations; I10 Essential (primary) hypertension; F41.1 Generalized anxiety disorder; F43.0 Acute stress reaction; Z79.899 Other long term (current) drug therapy
CPT/HCPCS: 36415; 80053; 84484; 85027; 93005; 99283; 99285

== ENCOUNTER → 2023-10-14 02:00 | Outpatient (BNV) | payer OTHER, SELFPAY | PROVIDERS: Emergency Provider Emergency Medicine; PCP Internal Medicine Geriatric Medicine; Visit Provider Internal Medicine | DX: R07.9 Chest pain, unspecified (principal) | CPT/HCPCS: 93010 ==

== ENCOUNTER 2023-10-20 04:34 | Emergency (ER) | payer OTHER, SELFPAY ==
[2023-10-20 04:39] VITALS: BP 159/74; BP 166/86; PULSE 81; PULSE 87; RESP 18; TEMP 36.8; O2SAT 98; O2SAT 99; BMI 35.1
--- NOTE | 2023-10-20 04:47 | ECG_ITS ---
Test Reason : dizziness Blood Pressure : / mmHG Vent. Rate : 074 BPM Atrial Rate : 074 BPM P-R Int : 176 ms QRS Dur : 106 ms QT Int : 410 ms P-R-T Axes : 039 -12 068 degrees QTc Int : 455 ms Poor data quality Sinus rhythm When compared with ECG of 14-OCT-2023 02:00, Poor data quality in current ECG precludes serial comparison Referred By: Jessica Bergeron Electronically Signed By:Jesús Quintana
--- NOTE | 2023-10-20 04:48 | ED_ITS ---
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 Li. Patient then voices concerns regarding her blood pressure and states that at home it was quite elevated but then she took medication and now it is better. She otherwise denies any shortness of breath or chest pain/palpitations she denies any GI or symptoms. She then goes on to explain that she was visiting in [place] and left her pills that relax her in [place]. Related Data Home Medications Medication Instructions Recorded Confirmed alprazolam 0.5 mg tablet 0.5 mg PO TID PRN Anxiety 08/09/20 09/22/23 aripiprazole 2 mg tablet 2 mg PO BEDTIME 08/09/20 09/22/23 cholecalciferol (vitamin D3) 25 25 mcg PO BID 08/09/20 09/22/23 mcg (1,000 unit) tablet hydroxyzine HCl 50 mg tablet 50 mg PO TID PRN Anxiety 08/09/20 09/22/23 linaclotide 145 mcg capsule 145 mcg PO DAILY 08/09/20 09/22/23 mirtazapine 45 mg tablet 45 mg PO BEDTIME 08/09/20 09/22/23 multivitamin 1 cap PO DAILY 08/09/20 09/22/23 omeprazole 20 mg tablet,delayed 20 mg PO DAILY 08/09/20 09/22/23 release sertraline 50 mg tablet 50 mg PO BEDTIME 08/09/20 09/22/23 Previous Rx's Medication Instructions Recorded escitalopram oxalate 10 mg tablet 10 mg PO DAILY #30 tabs 09/06/20 acetaminophen 325 mg capsule 325 mg PO QID PRN fever or pain 09/16/20 #30 caps aspirin 81 mg tablet,delayed 81 mg PO BEDTIME #90 tabs 09/28/20 release metoprolol succinate 50 mg 50 mg PO DAILY #90 tabs 09/28/20 tablet,extended release 24 hr menthol 0.44 %-zinc oxide 20.6 % 1 appl topical QID PRN skin 12/13/20 topical ointment (Calmoseptine) irritation #113 grams magnesium citrate 150 ml PO DAILY PRN constipation 12/14/20 #296 mL diphenhydramine HCl 25 mg capsule 25 mg PO BEDTIME insomnia #7 caps 12/25/20 (Benadryl) melatonin 10 mg tablet,extended 10 mg PO .nightly #5 tabs 01/07/21 release cefdinir 300 mg capsule 300 mg PO BID Otitis media 10 days 04/14/21 #20 caps ondansetron HCl 4 mg tablet 4 mg PO Q8H PRN nausea and 04/14/21 (Zofran) vomiting #14 tabs metoprolol succinate 50 mg 50 mg PO DAILY #14 tabs 05/22/21 tablet,extended release 24 hr ciprofloxacin 0.3 %-dexamethasone 4 drp otic (ears) BID 7 days 05/26/21 0.1 % ear drops,suspension (Ciprodex) polyethylene glycol 3350 17 17 g PO DAILY PRN constipation 07/31/21 gram/dose oral powder (Miralax) #238 grams hydrocortisone acetate 25 mg 25 mg CO BID #12 ea 08/01/21 rectal suppository (Anucort-HC) cefuroxime axetil 500 mg tablet 500 mg PO BID 7 days #14 tabs 09/01/21 meclizine 25 mg tablet 25 mg PO TID PRN dizziness #10 tabs 09/01/21 zolpidem 5 mg tablet (Ambien) 5 mg PO BEDTIME PRN sleep #2 tabs 10/29/21 zolpidem 5 mg tablet (Ambien) 5 mg PO BEDTIME PRN sleep #2 tabs 10/29/21 levofloxacin 500 mg tablet 500 mg PO DAILY 7 days #7 tabs 07/23/22 levofloxacin 500 mg tablet 500 mg PO DAILY #6 tabs 08/25/22 ofloxacin 0.3 % ear drops 10 drp otic (ears) DAILY 7 days #5 08/25/22 mL hydrocortisone 2.5 % topical cream 1 appl CO BEDTIME PRN hemorrhoids 09/20/22 with perineal applicator #30 grams docusate sodium 100 mg capsule 100 mg PO BID PRN Constipation #14 12/06/22 (Colace) caps phenylephrine 0.25 %-mineral oil 1 appl CO BID PRN hemorrhoids #56 12/06/22 14 %-petrolatm 74.9 % rectal grams ointment (Hemorrhoidal(phenyleph-min oil-petrolat)) polyethylene glycol 3350 17 17 g PO BID #119 grams 12/06/22 gram/dose oral powder (Miralax) cefuroxime axetil 500 mg tablet 500 mg PO BID 10 days #20 tabs 12/16/22 alprazolam 0.25 mg tablet 0.25 mg PO QID #7 tabs 01/04/23 ofloxacin 0.3 % ear drops 5 drp otic (ear) left BID 7 days 01/06/23 #5 mL alprazolam 0.25 mg tablet 0.25 mg PO TID PRN anxiety #7 tabs 01/11/23 alprazolam 0.25 mg tablet 0.25 mg PO TID PRN anxiety #3 tabs 02/02/23 alprazolam 0.5 mg tablet (Xanax) 0.5 mg PO BEDTIME PRN anxiety #7 04/20/23 tabs metoprolol succinate 50 mg 50 mg PO DAILY #7 tabs 05/18/23 tablet,extended release 24 hr lisinopril 40 mg tablet 40 mg PO QPM #90 tabs 05/22/23 ondansetron 4 mg disintegrating 4 mg PO Q8H PRN nausea and 07/06/23 tablet vomiting #10 tabs hydrocortisone 1 % topical cream 1 appl topical BID PRN rash #28.4 08/03/23 grams phenylephrine 0.25 %-mineral oil 1 appl CO BID PRN hemorrhoids #57 08/17/23 14 %-petrolatm 74.9 % rectal grams ointment (Preparation H) polyethylene glycol 3350 17 17 g PO BID #119 grams 08/17/23 gram/dose oral powder (Miralax) diphenhydramine HCl 25 mg tablet 25 mg PO TID PRN Pruritus #20 tabs 08/25/23 (Benadryl Allergy) phenylephrine 0.25 %-cocoa butter 1 supp CO BID #24 ea 08/25/23 88.44 % rectal suppository (Preparation H(phenyleph,cocoa buttr)) phenylephrine 0.25 %-mineral oil 1 appl CO BID #28 grams 08/25/23 14 %-petrolatm 74.9 % rectal ointment (Preparation H) fluticasone propionate 50 2 spray intranasal DAILY #16 grams 09/16/23 mcg/actuation nasal spray,suspension (Flonase Allergy Relief) loratadine 10 mg tablet 10 mg PO DAILY #30 tabs 09/16/23 menthol 0.44 %-zinc oxide 20.6 % 1 appl topical QID PRN skin 09/22/23 topical ointment (Calmoseptine) irritation #113 grams nitrofurantoin 100 mg PO Q12H 5 days #10 caps 10/20/23 monohydrate/macrocrystals 100 mg capsule (Macrobid) Allergies Allergy/AdvReac Type Severity Reaction Status Date / Time penicillin G [Penicillin G] Allergy Severe ITCHY/RASH Verified 10/06/23 07:28 Sulfa (Sulfonamide Allergy Severe ITCHY,RASH, Verified 10/06/23 07:28 Antibiotics) rash [Sulfa (Sulfonamides)] trimethoprim [From Bactrim] Allergy Severe HIVES Verified 10/06/23 07:28 penicillin V Allergy Unknown rash Verified 10/06/23 07:28 sulfacetamide Allergy Unknown unknown Verified 10/06/23 07:28 [From Sulfacet-R] sulfur [From Sulfacet-R] Allergy Unknown unknown Verified 10/06/23 07:28 Review of Systems Review of Systems: Pertinent positives and negatives as stated in the [facility] Past Medical History Source: nursing notes reviewed Medical History Bleeding hemorrhoids Essential hypertension PVC (premature ventricular contraction) PAC (premature atrial contraction) SVT (supraventricular tachycardia) Chronic constipation High blood pressure Vertigo Dementia Arthritis Anxiety Surgical History No pertinent past surgical history Social History Social History Alcohol intake: never Patient Tobacco Use Status: Never used Tobacco Smoked in Last 30 Days: No Use of substances other than those prescribed or required for medical reasons: No Advance Directives: No Advance Directives Information Provided: No Physical Exam ED Vital Signs: Vital Signs - 24 hr 10/20/23 04:39 10/20/23 05:14 10/20/23 05:14 Temperature 98.3 F Pulse Rate 81 74 76 Respiratory Rate 18 Blood Pressure 159/74 H 143/69 H 140/70 H Pulse Oximetry 98 Oxygen Delivery Method Room Air 10/20/23 05:15 Temperature Pulse Rate 75 Respiratory Rate Blood Pressure 143/71 H Pulse Oximetry Oxygen Delivery Method BMI result Body Mass Index 35.1 VITAL SIGNS: Reviewed. GENERAL: Well developed, well nourished, in no acute distress. HEAD: Normocephalic/atraumatic EYES: PERRLA, EOMI EARS: Ext canals without abnormality, TMs non-bulging and non-erythematous NOSE: Nares patent bilateral OROPHARYNX: no oral lesions noted, posterior pharynx clear NECK: Supple, no adenopathy LUNGS: Normal breath sounds. No adventitious sounds or accessory muscle use. SpO2<98> CARDIOVASCULAR: Regular rate and rhythm without noted murmurs ABDOMEN: Soft, non-tender, non-distended with bowel sounds. MUSCULOSKELETAL: No tenderness, deformities, or effusions noted on gross inspection. EXTREMITIES: No cyanosis, clubbing or edema. SKIN: Inspection of the skin reveals no rashes NEUROLOGIC: Alert and oriented x 4. Strength and sensation to light touch were grossly intact x 4. Medications Administered Discontinued Medications Generic Name Dose Route Start Last Admin Trade Name Freq PRN Reason Stop Dose Admin Diphenhydramine HCl 25 mg 10/20/23 05:44 10/20/23 05:55 Diphenhydramine Hcl 25 Mg Capsule PO 10/20/23 05:45 25 mg ONCE ONE Administration Nitrofurantoin Macrocrystals 100 mg 10/20/23 05:44 10/20/23 05:55 Nitrofurantoin Monohyd/M-Cryst 100 Mg Capsule PO 10/20/23 05:45 100 mg ONCE ONE Administration Medical Decision Making Medical Decision Making [facility] Narrative: 78-year-old female with history and clinical presentation of denying any acute dizziness at this time, patient also denies any infectious symptoms or processes and none identified on clinical exam. Will evaluate EKG/viral studies and orthostatics as well as a urinalysis, however I do suspect that patient's primary motivation is to obtain benzodiazepines. I reviewed all lab work from 10/14. Orthostatics here this morning are neg ative. Urinalysis appears to be a clean-catch and positive for evidence of UTI. Patient will be treated with a 5 day course of Macrobid. EKG without acute findings. Route testing is negative. Patient otherwise discharged home in stable condition. Differential Diagnosis Differential Diagnoses: The differential diagnosis associated with the presentation includes Please see the discussion above Admission/Observation Consideration of admission/observation: Escalation of care including admission/observation considered Please see the discussion above Lab Data MDM Lab Attestation statement: I reviewed the patient's lab results. Please see the discussion above Labs: Lab Results 10/20/23 Range/Units Unknown Urine Color Yellow Urine Appearance Clear Urine pH 6.5 (5.0-9.0) Ur Specific [place] 1.010 (1.005-1.025) Urine Protein Negative (Neg-Trace) mg/dL Urine Glucose (UA) Negative (Negative) mg/dL Urine Ketones Negative (Negative) mg/dL Urine Blood Negative (Negative) Urine Nitrite Negative (Negative) Ur Leukocyte Esterase Moderate (2+) H (Negative) Urine RBC 0-2 (0-2) /HPF Urine WBC 21-50 H (0-5) /HPF Ur Squamous Epith Cells 0-2 (0-2) /HPF Urine Bacteria None Seen (None Seen) Hyaline Casts 0-2 (0-2) /LPF Influenza Type A (PCR) NEGATIVE (Negative) Influenza Type B (PCR) NEGATIVE (Negative) RSV RNA Qual (PCR) NEGATIVE (Negative) SARS-CoV-2 RNA (RT-PCR) NEGATIVE (Negative) Independent Interpretation I performed an independent interpretation of an: EKG Interpretation: Normal sinus rhythm, HR-74, no STEMI, CO/QTC are within normal limits. External Record Review External record reviewed: Outpatient record and Prior outpatient labs Chronic Conditions Patient?s care impacted by: Hypertension Discharge Plan Discharge Clinical Impression: Acute UTI Patient Disposition: Home, Self-Care Instructions: Urinary Tract Infection in Women (ED) Additional Instructions: 1. Reanudar todos los medicamentos caseros seg?n lo recetado. 2. Complete el tratamiento con antibi?ticos seg?n lo prescrito. 3. Steve un seguimiento con clark m?dico de atenci?n primaria. Regrese a la italo de emergencias si los s?ntomas empeoran. 1. Resume all home medications as prescribed. 2. Complete the course of antibiotics as prescribed. 3. Please follow-up with primary care doctor. Return to the ER for any worsening symptoms. Prescriptions: New nitrofurantoin monohyd/m-cryst [Macrobid] 100 mg capsule 100 mg PO Q12H 5 Days Qty: 10 0RF Rx Instructions: must administer with a meal/food No Action escitalopram oxalate 10 mg tablet 10 mg PO DAILY Qty: 30 1RF metoprolol succinate 50 mg tablet extended release 24 hr 50 mg PO DAILY Qty: 90 2RF aspirin 81 mg tablet,delayed release (DR/EC) 81 mg PO BEDTIME Qty: 90 2RF polyethylene glycol 3350 [Miralax] 17 gram/dose powder 17 g PO DAILY PRN (Reason: constipation) Qty: 238 0RF lisinopril 40 mg tablet 40 mg PO QPM Qty: 90 0RF Rx Instructions: Please call and schedule cardiology appt acetaminophen 325 mg capsule 325 mg PO QID PRN (Reason: fever or pain) Qty: 30 0RF melatonin 10 mg tablet extended release 10 mg PO .nightly Qty: 5 0RF metoprolol succinate 50 mg tablet extended release 24 hr 50 mg PO DAILY Qty: 14 0RF ciprofloxacin-dexamethasone [Ciprodex] 0.3-0.1 % drops,suspension 4 drp otic (ears) BID 7 Days 0RF alprazolam 0.5 mg Tablet 0.5 mg PO TID PRN (Reason: Anxiety) hydroxyzine HCl 50 mg Tablet 50 mg PO TID PRN (Reason: Anxiety) mirtazapine 45 mg Tablet 45 mg PO BEDTIME multivitamin Capsule 1 cap PO DAILY sertraline 50 mg Tablet 50 mg PO BEDTIME aripiprazole 2 mg Tablet 2 mg PO BEDTIME cholecalciferol (vitamin D3) 25 mcg (1,000 unit) Tablet 25 mcg PO BID omeprazole 20 mg Tablet,Delayed Release (Dr/Ec) 20 mg PO DAILY linaclotide 145 mcg Capsule 145 mcg PO DAILY diphenhydramine HCl [Benadryl] 25 mg capsule 25 mg PO BEDTIME Qty: 7 0RF cefdinir 300 mg capsule 300 mg PO BID 10 Days Qty: 20 0RF ondansetron HCl [Zofran] 4 mg tablet 4 mg PO Q8H PRN (Reason: nausea and vomiting) Qty: 14 0RF cefuroxime axetil 500 mg tablet 500 mg PO BID 7 Days Qty: 14 0RF meclizine 25 mg tablet 25 mg PO TID PRN (Reason: dizziness) Qty: 10 0RF levofloxacin 500 mg tablet 500 mg PO DAILY 7 Days Qty: 7 0RF cefuroxime axetil 500 mg tablet 500 mg PO BID 10 Days Qty: 20 0RF alprazolam 0.25 mg tablet 0.25 mg PO QID Qty: 7 0RF levofloxacin 500 mg tablet 500 mg PO DAILY Qty: 6 0RF Rx Instructions: start on 08/26 ofloxacin 0.3 % drops 10 drp otic (ears) DAILY 7 Days Qty: 5 0RF Rx Instructions: can substitute eye drops if necessary hydrocortisone 2.5 % cream with perineal applicator 1 appl CO BEDTIME PRN (Reason: hemorrhoids) Qty: 30 0RF Hemorrhoidal(PE-min oil-emma) 0.25-14-74.9 % ointment 1 appl CO BID PRN (Reason: hemorrhoids) Qty: 56 0RF polyethylene glycol 3350 [Miralax] 17 gram/dose powder 17 g PO BID Qty: 119 0RF docusate sodium [Colace] 100 mg capsule 100 mg PO BID PRN (Reason: Constipation) Qty: 14 0RF ofloxacin 0.3 % drops 5 drp otic (ear) left BID 7 Days Qty: 5 0RF alprazolam 0.25 mg tablet 0.25 mg PO TID PRN (Reason: anxiety) Qty: 7 0RF alprazolam [Xanax] 0.5 mg tablet 0.5 mg PO BEDTIME PRN (Reason: anxiety) Qty: 7 0RF metoprolol succinate 50 mg tablet extended release 24 hr 50 mg PO DAILY Qty: 7 0RF Preparation H 0.25-14-74.9 % ointment 1 appl CO BID PRN (Reason: hemorrhoids) Qty: 57 0RF polyethylene glycol 3350 [Miralax] 17 gram/dose powder 17 g PO BID Qty: 119 0RF Preparation H 0.25-14-74.9 % ointment 1 appl CO BID Qty: 28 0RF Preparation H(pe,cb) 0.25-88.44 % suppository 1 supp CO BID Qty: 24 0RF diphenhydramine HCl [Benadryl Allergy] 25 mg tablet 25 mg PO TID PRN (Reason: Pruritus) Qty: 20 0RF loratadine 10 mg tablet 10 mg PO DAILY Qty: 30 0RF fluticasone propionate [Flonase Allergy Relief] 50 mcg/actuation spray,suspension 2 spray intranasal DAILY Qty: 16 0RF Rx Instructions: administer into each nostril alprazolam 0.25 mg tablet 0.25 mg PO TID PRN (Reason: anxiety) Qty: 3 0RF ondansetron 4 mg tablet,disintegrating 4 mg PO Q8H PRN (Reason: nausea and vomiting) Qty: 10 0RF hydrocortisone 1 % cream 1 appl topical BID PRN (Reason: rash) Qty: 28.4 0RF Calmoseptine 0.44-20.6 % ointment 1 appl topical QID PRN (Reason: skin irritation) Qty: 113 0RF magnesium citrate Solution 150 ml PO DAILY PRN (Reason: constipation) Qty: 296 0RF Rx Instructions: take only when needed for constipation hydrocortisone acetate [Anucort-HC] 25 mg suppository 25 mg CO BID Qty: 12 3RF zolpidem [Ambien] 5 mg tablet 5 mg PO BEDTIME PRN (Reason: sleep) Qty: 2 0RF zolpidem [Ambien] 5 mg tablet 5 mg PO BEDTIME PRN (Reason: sleep) Qty: 2 0RF menthol-zinc oxide [Calmoseptine] 0.44-20.6 % ointment 1 appl topical QID PRN (Reason: skin irritation) Qty: 113 0RF Referrals: Name,MD Nitin [Primary Care Provider] - Print Language: [place]an
[2023-10-20 05:14] VITALS: BP 140/70; BP 143/69; PULSE 74; PULSE 76
[2023-10-20 05:15] VITALS: BP 143/71; PULSE 75
[2023-10-20 05:29] LABS: Appearance Urine Clear; Color Urine Yellow; Glucose Urine UA Negative (Negative); Leukocyte Esterase Urine Moderate (2+) (Negative); Nitrite Urine Negative (Negative); PH 6.5 (5.0-9.0); UMIC TRIGGER UACC YES; Urine Blood Negative (Negative); Urine Ketones Negative (Negative); Urine Protein Negative (Neg-Trace)
[2023-10-20 05:32] LABS: Bacteria Urine None Seen (None Seen); Hyaline Casts Urine 0-2 /LPF (0-2); RBC Urine 0-2 /HPF (0-2); Squamous Epithelial Cell Urine 0-2 /HPF (0-2); UACC Culture Trigger YES; WBC Urine 21-50 /HPF (0-5)
[2023-10-20] MEDS: Nitrofurantoin Monohyd/M-Cryst 100 MG CAPSULE PO (05:55)
[2023-10-20] MEDS: diphenhydrAMINE HCL 25 MG CAPSULE PO (05:55)
--- NOTE | 2023-10-20 06:00 | PC.NURSE ---
pt medicated according to mar. pt denies pain at this time
[2023-10-20 06:05] LABS: Influenza A PCR NEGATIVE (Negative); Influenza B PCR NEGATIVE (Negative); Resp Syncy Virus RNA Qual PCR NEGATIVE (Negative); SARS COV2 PCR INHOUSE NEGATIVE (Negative)
== END 2023-10-20 06:25 | disposition home or self-care (01) ==
PROVIDERS: Emergency Provider Student in an Organized Health Care Education/Training Program; PCP Internal Medicine Geriatric Medicine
DX: N39.0 Urinary tract infection, site not specified (principal); Z20.822 Contact with and (suspected) exposure to COVID-19; Z20.828 Contact with and (suspected) exposure to other viral communicable diseases; I10 Essential (primary) hypertension; Z79.899 Other long term (current) drug therapy
CPT/HCPCS: 0241U; 81001; 87086; 93005; 99283; 99284

== ENCOUNTER → 2023-10-20 04:47 | Outpatient (BNV) | payer OTHER, SELFPAY | PROVIDERS: Emergency Provider Student in an Organized Health Care Education/Training Program; PCP Internal Medicine Geriatric Medicine; Visit Provider Internal Medicine Cardiovascular Disease | DX: R42 Dizziness and giddiness (principal) | CPT/HCPCS: 93010 ==

== ENCOUNTER 2023-10-20 19:50 | Emergency (ER) | payer OTHER, SELFPAY ==
--- NOTE | ~2023-10-20 | CT_ITS ---
EXAMINATION: CT HEAD WITHOUT CONTRAST. Left wrist and hand. CLINICAL INFORMATION: Injury. Rule out fracture. COMPARISON: None available. TECHNIQUE: Contiguous axial imaging was performed from the skull base to vertex without intravenous administration of contrast. This CT examination was performed using dose optimization techniques as appropriate, variously including the following: *Automated exposure control *Adjustment of mA and/or kV according to patient size (this includes techniques or standardized protocols for targeted exams where dose is matched to indication/reason for exam; i.e. extremities or head) *Use of iterative reconstruction technique DLP [id number]. FINDINGS: There is no acute intra-axial, extra-axial bleed, masses or midline shift. There is no acute infarction evolution. There is no edema. The lemons to white matter difference is maintained normal. The lateral ventricles are symmetrical in size and configuration without enlargement. Bone windows reveal no calvarial abnormality right hand: Right hand: There is a flexion deformity PIP joint distal fifth digit. There is mild loss of PIP and DIP joints throughout all digits with periarticular enthesophytes in DIP joints with a large dorsal osteophyte first digit PIP joint. No acute fracture or dislocation seen. The soft tissues are normal. CT/CT head/brain wo IV con IMPRESSION: No acute fracture or dislocation. Degenerative osteoarthritis PIP and DIP joints. There is no acute intracranial process seen
[2023-10-20 19:53] VITALS: BP 167/79; PULSE 85; RESP 18; TEMP 36.6; O2SAT 98; BMI 26.9
--- NOTE | 2023-10-20 19:59 | ED.FALL ---
HPI - Fall General Chief Complaint: Fall Stated Complaint: finger broke, hanging Time Seen by Provider: 10/20/23 20:45 Source: patient, RN notes reviewed, old records reviewed and science interpreter Mode of arrival: ambulatory Limitations: language barrier History of Present Illness HPI Narrative: 78-year-old female presents for evaluation after a fall. She states that she was leaving her daughter's house and walking down the steps. Patient reports that she slipped and fell onto the concrete She also struck her head on the wooden banister There was no loss of consciousness Patient cut her left hand She does not know her last tetanus shot was She complains of severe ?anxiety. ? She denies any headache, neck pain, chest pain Patient reports that she is not anticoagulated Related Data Home Medications Medication Instructions Recorded Confirmed alprazolam 0.5 mg tablet 0.5 mg PO TID PRN Anxiety 08/09/20 09/22/23 aripiprazole 2 mg tablet 2 mg PO BEDTIME 08/09/20 09/22/23 cholecalciferol (vitamin D3) 25 25 mcg PO BID 08/09/20 09/22/23 mcg (1,000 unit) tablet hydroxyzine HCl 50 mg tablet 50 mg PO TID PRN Anxiety 08/09/20 09/22/23 linaclotide 145 mcg capsule 145 mcg PO DAILY 08/09/20 09/22/23 mirtazapine 45 mg tablet 45 mg PO BEDTIME 08/09/20 09/22/23 multivitamin 1 cap PO DAILY 08/09/20 09/22/23 omeprazole 20 mg tablet,delayed 20 mg PO DAILY 08/09/20 09/22/23 release sertraline 50 mg tablet 50 mg PO BEDTIME 08/09/20 09/22/23 Previous Rx's Medication Instructions Recorded escitalopram oxalate 10 mg tablet 10 mg PO DAILY #30 tabs 09/06/20 acetaminophen 325 mg capsule 325 mg PO QID PRN fever or pain 09/16/20 #30 caps aspirin 81 mg tablet,delayed 81 mg PO BEDTIME #90 tabs 09/28/20 release metoprolol succinate 50 mg 50 mg PO DAILY #90 tabs 09/28/20 tablet,extended release 24 hr menthol 0.44 %-zinc oxide 20.6 % 1 appl topical QID PRN skin 12/13/20 topical ointment (Calmoseptine) irritation #113 grams magnesium citrate 150 ml PO DAILY PRN constipation 12/14/20 #296 mL diphenhydramine HCl 25 mg capsule 25 mg PO BEDTIME insomnia #7 caps 12/25/20 (Benadryl) melatonin 10 mg tablet,extended 10 mg PO .nightly #5 tabs 01/07/21 release cefdinir 300 mg capsule 300 mg PO BID Otitis media 10 days 04/14/21 #20 caps ondansetron HCl 4 mg tablet 4 mg PO Q8H PRN nausea and 04/14/21 (Zofran) vomiting #14 tabs metoprolol succinate 50 mg 50 mg PO DAILY #14 tabs 05/22/21 tablet,extended release 24 hr ciprofloxacin 0.3 %-dexamethasone 4 drp otic (ears) BID 7 days 05/26/21 0.1 % ear drops,suspension (Ciprodex) polyethylene glycol 3350 17 17 g PO DAILY PRN constipation 07/31/21 gram/dose oral powder (Miralax) #238 grams hydrocortisone acetate 25 mg 25 mg [place] BID #12 ea 08/01/21 rectal suppository (Anucort-HC) cefuroxime axetil 500 mg tablet 500 mg PO BID 7 days #14 tabs 09/01/21 meclizine 25 mg tablet 25 mg PO TID PRN dizziness #10 tabs 09/01/21 zolpidem 5 mg tablet (Ambien) 5 mg PO BEDTIME PRN sleep #2 tabs 10/29/21 zolpidem 5 mg tablet (Ambien) 5 mg PO BEDTIME PRN sleep #2 tabs 10/29/21 levofloxacin 500 mg tablet 500 mg PO DAILY 7 days #7 tabs 07/23/22 levofloxacin 500 mg tablet 500 mg PO DAILY #6 tabs 08/25/22 ofloxacin 0.3 % ear drops 10 drp otic (ears) DAILY 7 days #5 08/25/22 mL hydrocortisone 2.5 % topical cream 1 appl NH BEDTIME PRN hemorrhoids 09/20/22 with perineal applicator #30 grams docusate sodium 100 mg capsule 100 mg PO BID PRN Constipation #14 12/06/22 (Colace) caps phenylephrine 0.25 %-mineral oil 1 appl NH BID PRN hemorrhoids #56 12/06/22 14 %-petrolatm 74.9 % rectal grams ointment (Hemorrhoidal(phenyleph-min oil-petrolat)) polyethylene glycol 3350 17 17 g PO BID #119 grams 12/06/22 gram/dose oral powder (Miralax) cefuroxime axetil 500 mg tablet 500 mg PO BID 10 days #20 tabs 12/16/22 alprazolam 0.25 mg tablet 0.25 mg PO QID #7 tabs 01/04/23 ofloxacin 0.3 % ear drops 5 drp otic (ear) left BID 7 days 01/06/23 #5 mL alprazolam 0.25 mg tablet 0.25 mg PO TID PRN anxiety #7 tabs 01/11/23 alprazolam 0.25 mg tablet 0.25 mg PO TID PRN anxiety #3 tabs 02/02/23 alprazolam 0.5 mg tablet (Xanax) 0.5 mg PO BEDTIME PRN anxiety #7 04/20/23 tabs metoprolol succinate 50 mg 50 mg PO DAILY #7 tabs 05/18/23 tablet,extended release 24 hr lisinopril 40 mg tablet 40 mg PO QPM #90 tabs 05/22/23 ondansetron 4 mg disintegrating 4 mg PO Q8H PRN nausea and 07/06/23 tablet vomiting #10 tabs hydrocortisone 1 % topical cream 1 appl topical BID PRN rash #28.4 08/03/23 grams phenylephrine 0.25 %-mineral oil 1 appl NH BID PRN hemorrhoids #57 08/17/23 14 %-petrolatm 74.9 % rectal grams ointment (Preparation H) polyethylene glycol 3350 17 17 g PO BID #119 grams 08/17/23 gram/dose oral powder (Miralax) diphenhydramine HCl 25 mg tablet 25 mg PO TID PRN Pruritus #20 tabs 08/25/23 (Benadryl Allergy) phenylephrine 0.25 %-cocoa butter 1 supp NH BID #24 ea 08/25/23 88.44 % rectal suppository (Preparation H(phenyleph,cocoa buttr)) phenylephrine 0.25 %-mineral oil 1 appl NH BID #28 grams 08/25/23 14 %-petrolatm 74.9 % rectal ointment (Preparation H) fluticasone propionate 50 2 spray intranasal DAILY #16 grams 09/16/23 mcg/actuation nasal spray,suspension (Flonase Allergy Relief) loratadine 10 mg tablet 10 mg PO DAILY #30 tabs 09/16/23 menthol 0.44 %-zinc oxide 20.6 % 1 appl topical QID PRN skin 09/22/23 topical ointment (Calmoseptine) irritation #113 grams cephalexin 500 mg capsule 500 mg PO TID #15 caps 10/20/23 nitrofurantoin 100 mg PO Q12H 5 days #10 caps 10/20/23 monohydrate/macrocrystals 100 mg capsule (Macrobid) Allergies Allergy/AdvReac Type Severity Reaction Status Date / Time penicillin G [Penicillin G] Allergy Severe ITCHY/RASH Verified 10/20/23 19:53 Sulfa (Sulfonamide Allergy Severe ITCHY,RASH, Verified 10/20/23 19:53 Antibiotics) rash [Sulfa (Sulfonamides)] trimethoprim [From Bactrim] Allergy Severe HIVES Verified 10/20/23 19:53 penicillin V Allergy Unknown rash Verified 10/20/23 19:53 sulfacetamide Allergy Unknown unknown Verified 10/20/23 19:53 [From Sulfacet-R] sulfur [From Sulfacet-R] Allergy Unknown unknown Verified 10/20/23 19:53 Review of Systems Constitutional: Constitutional: Denies chills, Denies fever(s), Denies frequent falls and Denies headache(s) Eyes: Eyes: Denies blurry vision ENT: Denies vertigo, Denies dizziness and Denies headache(s) Cardiovascular: Cardiovascular: Denies chest pain and Denies dyspnea Respiratory: Respiratory: Denies cough and Denies dyspnea Gastrointestinal: Gastrointestinal: Denies abdominal pain Musculoskeletal: Musculoskeletal: Denies back pain Integumentary/Breasts: Skin/Breast: Reports wounds Neurologic: Denies vertigo, Denies dizziness, Denies frequent falls and Denies headache(s) [facility] Past Medical History Medical History Bleeding hemorrhoids Essential hypertension PVC (premature ventricular contraction) PAC (premature atrial contraction) SVT (supraventricular tachycardia) Chronic constipation High blood pressure Vertigo Dementia Arthritis Anxiety Surgical History No pertinent past surgical history Social History Social History Alcohol intake: never Patient Tobacco Use Status: Never used Tobacco Advance Directives: No Advance Directives Information Provided: Yes Physical Exam Vital Signs: Vital Signs: Last Vital Signs Temp 98.1 F 10/20/23 22:37 Pulse 68 10/20/23 22:37 Resp 17 10/20/23 20:31 BP 149/72 H 10/20/23 22:37 Pulse Ox 97 10/20/23 22:37 O2 Del Method Room Air 10/20/23 22:37 BMI result Body Mass Index 26.9 Const: General: healthy appearing, comfortable, no acute distress, alert and awake Nutritional Appearance: well nourished Orientation/consciousness: patient oriented x3 HEENT: Head: Yes normocephalic and Yes atraumatic Eyes: Eyelids: Yes eyelids normal Conjunctivae: conjunctivae normal Sclerae: sclerae normal Corneas: corneas normal Pupils: Equal, round and reactive pupils present EOM: EOMs intact bilaterally Neck: Neck: Yes full ROM Resp: Effort & Inspection: normal respiratory effort, able to speak in complete sentences and not labored Cardio: Rate: regular rate Rhythm: regular rhythm Skin: General skin exam: elasticity normal Neuro: General: patient oriented x3 Cranial nerves: Yes CN's II-XII intact bilaterally, Yes Equal, round and reactive pupils present and Yes Bilaterally intact EOM present Cognition (Neuro): normal cognition Extrem: Other: Patient has 2 lacerations to left hand. The largest is approximately 8 cm at the base of the thumb on the palmar surface. This is a linear but jagged laceration. Minimal bleeding. She has a no other, 4 cm laceration around the radial side of the left 5th finger distal to the DIP joint. Patient says left 5th finger at the DIP joint is stuck in a flexed position and she is unable to extend the distal finger. Inspection of the wound shows a clearly lacerated extensor tendon at the DIP joint Course Course Course Narrative: Patient complains of trip and fall at home, she says she did not faint she remembers everything and cut her hand and fell on her left hand, as well as bumping her head She denies any loss of consciousness or confusion, denies chest pain abdominal pain, no vomiting no shortness of breath Imaging is ordered with CT of head and x-rays of left hand and left pinky finger This is rapid medical exam in triage is pending full evaluation treatment and dispo by ER provider Medications Administered Discontinued Medications Generic Name Dose Route Start Last Admin Trade Name Beau PRN Reason Stop Dose Admin Diphtheria/Tetanus/Acell Pertussis 0.5 ml 10/20/23 21:04 10/20/23 22:07 Diphth,Pertus(Acell),Tet Adult 0.5 Ml Syringe IM 10/20/23 21:05 0.5 ml .ONCE ONE Administration Hydroxyzine HCl 25 mg 10/20/23 21:09 10/20/23 22:06 Hydroxyzine Hcl 25 Mg Tablet PO 10/20/23 21:10 25 mg ONCE ONE Administration Lidocaine HCl 10 ml 10/20/23 21:04 10/20/23 22:07 Lidocaine Hcl 1 % Mpf 5 Ml Vial INFILTRATI 10/20/23 21:05 10 ml ONCE ONE Administration Oxycodone HCl 10 mg 10/20/23 21:02 10/20/23 22:06 Oxycodone Hcl Immed Release 5 Mg Tablet PO 10/20/23 21:03 10 mg ONCE ONE Administration Procedures Laceration Laceration 1: Site: hand Side (If applicable): left (Palm of the hand at the base of the thumb) Size (cm): 8 Description: linear and irregular Depth: simple, single layer Local Anesthetic: lidocaine 1% Amount of anesthesia used (mL): 8 Pre-repair: wound explored, irrigated extensively, deep structures intact and extensive debridement Skin layer closed with: nylon Size (cm): 5-0 Number of sutures: 13 Technique: simple, interrupted Laceration 2: Site: hand Side (If applicable): left (Fifth finger) Size (cm): 4 Description: linear Depth: involves tendon Local Anesthetic: lidocaine 1% (Digital block) Amount of anesthesia used (mL): 4 Pre-repair: wound explored and irrigated extensively Skin layer closed with: nylon Size (cm): 5-0 Number of sutures: 7 Technique: simple, interrupted Medical Decision Making Medical Decision Making MDM Narrative: Patient presents for a nonsyncopal fall while walking and stairs. X-ray imaging shows no evidence of fracture. CT imaging shows no traumatic injury to the brain. She has no C-spine tenderness or neck pain. Patient is complaining of anxiety. She is well known to this hospital for presenting for anxiety. Will treat her anxiety with hydroxyzine and treat her pain with oxycodone. See procedure note for wound repairs. I discussed with Orthopedics, Dr. Mcarthur the concern for extensor tendon rupture and he agrees with suturing the finger and splinting and extended position. The patient should be discharged with antibiotics and orthopedic follow-up Differential Diagnosis Differential Diagnoses: The differential diagnosis associated with the presentation includes Laceration Skin tear Puncture wound Fracture Open fracture Extensor tendon injury Consult Healthcare Provider Management of the patient was discussed with: Director Of Group Sales (Dr. Mcarthur, orthopedics) Independent Interpretation I performed an independent interpretation of an: Plain X-Ray (No obvious fracture of the left hand) and CT Scan (No intracranial hemorrhage) Radiology Impression Discussion of test interpretation with radiology: I have reviewed the radiologist's reading. (No fracture of the left hand, there are arthritic changes) Radiologist Impression: There is no acute intracranial process seen Discharge Plan Discharge Clinical Impression: Extensor tendon laceration, hand, open wound, Laceration of hand, left Patient Disposition: Home, Self-Care Instructions: Tendon Laceration (ED) Additional Instructions: You have 2 lacerations to your left hand. The palmar surface of the hand has 13 suture that can be removed in 10-14 days. The left pinky finger has 7 sutures that need to be removed in 10-14 days. You have a laceration to the extensor tendon of your left pinky finger Keep the splint in place until you follow-up with orthopedics at number provided Take the antibiotic 3 times daily for the next 5 days Prescriptions: New cephalexin 500 mg capsule 500 mg PO TID Qty: 15 0RF No Action escitalopram oxalate 10 mg tablet 10 mg PO DAILY Qty: 30 1RF metoprolol succinate 50 mg tablet extended release 24 hr 50 mg PO DAILY Qty: 90 2RF aspirin 81 mg tablet,delayed release (DR/EC) 81 mg PO BEDTIME Qty: 90 2RF polyethylene glycol 3350 [Miralax] 17 gram/dose powder 17 g PO DAILY PRN (Reason: constipation) Qty: 238 0RF lisinopril 40 mg tablet 40 mg PO QPM Qty: 90 0RF Rx Instructions: Please call and schedule cardiology appt acetaminophen 325 mg capsule 325 mg PO QID PRN (Reason: fever or pain) Qty: 30 0RF melatonin 10 mg tablet extended release 10 mg PO .nightly Qty: 5 0RF metoprolol succinate 50 mg tablet extended release 24 hr 50 mg PO DAILY Qty: 14 0RF ciprofloxacin-dexamethasone [Ciprodex] 0.3-0.1 % drops,suspension 4 drp otic (ears) BID 7 Days 0RF alprazolam 0.5 mg Tablet 0.5 mg PO TID PRN (Reason: Anxiety) hydroxyzine HCl 50 mg Tablet 50 mg PO TID PRN (Reason: Anxiety) mirtazapine 45 mg Tablet 45 mg PO BEDTIME multivitamin Capsule 1 cap PO DAILY sertraline 50 mg Tablet 50 mg PO BEDTIME aripiprazole 2 mg Tablet 2 mg PO BEDTIME cholecalciferol (vitamin D3) 25 mcg (1,000 unit) Tablet 25 mcg PO BID omeprazole 20 mg Tablet,Delayed Release (Dr/Ec) 20 mg PO DAILY linaclotide 145 mcg Capsule 145 mcg PO DAILY diphenhydramine HCl [Benadryl] 25 mg capsule 25 mg PO BEDTIME Qty: 7 0RF cefdinir 300 mg capsule 300 mg PO BID 10 Days Qty: 20 0RF ondansetron HCl [Zofran] 4 mg tablet 4 mg PO Q8H PRN (Reason: nausea and vomiting) Qty: 14 0RF cefuroxime axetil 500 mg tablet 500 mg PO BID 7 Days Qty: 14 0RF meclizine 25 mg tablet 25 mg PO TID PRN (Reason: dizziness) Qty: 10 0RF levofloxacin 500 mg tablet 500 mg PO DAILY 7 Days Qty: 7 0RF cefuroxime axetil 500 mg tablet 500 mg PO BID 10 Days Qty: 20 0RF alprazolam 0.25 mg tablet 0.25 mg PO QID Qty: 7 0RF levofloxacin 500 mg tablet 500 mg PO DAILY Qty: 6 0RF Rx Instructions: start on 08/26 ofloxacin 0.3 % drops 10 drp otic (ears) DAILY 7 Days Qty: 5 0RF Rx Instructions: can substitute eye drops if necessary hydrocortisone 2.5 % cream with perineal applicator 1 appl NH BEDTIME PRN (Reason: hemorrhoids) Qty: 30 0RF Hemorrhoidal(PE-min oil-emma) 0.25-14-74.9 % ointment 1 appl NH BID PRN (Reason: hemorrhoids) Qty: 56 0RF polyethylene glycol 3350 [Miralax] 17 gram/dose powder 17 g PO BID Qty: 119 0RF docusate sodium [Colace] 100 mg capsule 100 mg PO BID PRN (Reason: Constipation) Qty: 14 0RF ofloxacin 0.3 % drops 5 drp otic (ear) left BID 7 Days Qty: 5 0RF alprazolam 0.25 mg tablet 0.25 mg PO TID PRN (Reason: anxiety) Qty: 7 0RF alprazolam [Xanax] 0.5 mg tablet 0.5 mg PO BEDTIME PRN (Reason: anxiety) Qty: 7 0RF metoprolol succinate 50 mg tablet extended release 24 hr 50 mg PO DAILY Qty: 7 0RF Preparation H 0.25-14-74.9 % ointment 1 appl NH BID PRN (Reason: hemorrhoids) Qty: 57 0RF polyethylene glycol 3350 [Miralax] 17 gram/dose powder 17 g PO BID Qty: 119 0RF Preparation H 0.25-14-74.9 % ointment 1 appl NH BID Qty: 28 0RF Preparation H(pe,cb) 0.25-88.44 % suppository 1 supp NH BID Qty: 24 0RF diphenhydramine HCl [Benadryl Allergy] 25 mg tablet 25 mg PO TID PRN (Reason: Pruritus) Qty: 20 0RF loratadine 10 mg tablet 10 mg PO DAILY Qty: 30 0RF fluticasone propionate [Flonase Allergy Relief] 50 mcg/actuation spray,suspension 2 spray intranasal DAILY Qty: 16 0RF Rx Instructions: administer into each nostril alprazolam 0.25 mg tablet 0.25 mg PO TID PRN (Reason: anxiety) Qty: 3 0RF ondansetron 4 mg tablet,disintegrating 4 mg PO Q8H PRN (Reason: nausea and vomiting) Qty: 10 0RF hydrocortisone 1 % cream 1 appl topical BID PRN (Reason: rash) Qty: 28.4 0RF nitrofurantoin monohyd/m-cryst [Macrobid] 100 mg capsule 100 mg PO Q12H 5 Days Qty: 10 0RF Rx Instructions: must administer with a meal/food Calmoseptine 0.44-20.6 % ointment 1 appl topical QID PRN (Reason: skin irritation) Qty: 113 0RF magnesium citrate Solution 150 ml PO DAILY PRN (Reason: constipation) Qty: 296 0RF Rx Instructions: take only when needed for constipation hydrocortisone acetate [Anucort-HC] 25 mg suppository 25 mg NH BID Qty: 12 3RF zolpidem [Ambien] 5 mg tablet 5 mg PO BEDTIME PRN (Reason: sleep) Qty: 2 0RF zolpidem [Ambien] 5 mg tablet 5 mg PO BEDTIME PRN (Reason: sleep) Qty: 2 0RF menthol-zinc oxide [Calmoseptine] 0.44-20.6 % ointment 1 appl topical QID PRN (Reason: skin irritation) Qty: 113 0RF Referrals: Claudia Manley MD [Physician] - (left 5th finger dip extensor tendon laceration)
[2023-10-20 20:31] VITALS: BP 160/75; PULSE 71; RESP 17; TEMP 36.7; O2SAT 99
[2023-10-20] MEDS: oxyCODONE HCl Immed Release 5 MG TABLET 10 MG PO (22:06)
[2023-10-20] MEDS: hydrOXYzine HCL 25 MG TABLET PO (22:06)
[2023-10-20] MEDS: Diphth,Pertus(ACell),Tet Adult 0.5 ML SYRINGE IM (22:07)
[2023-10-20] MEDS: Lidocaine HCl 1 % MPF 5 ML VIAL 10 ML INFILTRATI (22:07)
[2023-10-20 22:37] VITALS: BP 149/72; PULSE 68; TEMP 36.7; O2SAT 97
[2023-10-21 00:04] VITALS: BP 133/68; PULSE 71; RESP 17; TEMP 36.9; O2SAT 97
[2023-10-21] MEDS: cephALEXin 500 MG CAPSULE PO (00:07)
== END 2023-10-21 00:27 | disposition home or self-care (01) ==
PROVIDERS: Emergency Provider Emergency Medicine
DX: S61.217A Laceration without foreign body of left little finger without damage to nail, initial encounter (principal); S61.412A Laceration without foreign body of left hand, initial encounter; W10.8XXA Fall (on) (from) other stairs and steps, initial encounter; Y93.9 Activity, unspecified; Y92.008 Other place in unspecified non-institutional (private) residence as the place of occurrence of the external cause; Y99.9 Unspecified external cause status
CPT/HCPCS: 12004; 26418; 29130; 70450; 73110; 73130; 90471; 90715; 99284

== ENCOUNTER 2023-10-21 05:15 | Emergency (ER) | payer OTHER, SELFPAY ==
[2023-10-21 05:22] VITALS: BMI 25.6
[2023-10-21 05:23] VITALS: BP 171/79; PULSE 87; RESP 18; TEMP 36.7; O2SAT 99
[2023-10-21 06:00] VITALS: BP 151/68; PULSE 77; RESP 18; O2SAT 99
--- NOTE | 2023-10-21 06:17 | ED.GENADULT ---
HPI - General Adult General Chief complaint: Nausea/Vomiting/Diarrhea Stated complaint: N/V Time Seen by Provider: 10/21/23 06:13 Source: patient Mode of arrival: ambulatory Limitations: no limitations History of Present Illness HPI narrative: Patient just discharged after laceration repair of left 5th finger was in waiting area as she could not find the ride comes back in the ER as feeling anxious and nausea vomiting she been here multiple times for similar problems asking for antianxiety medication which she has already prescription Related Data Home Medications Medication Instructions Recorded Confirmed alprazolam 0.5 mg tablet 0.5 mg PO TID PRN Anxiety 08/09/20 09/22/23 aripiprazole 2 mg tablet 2 mg PO BEDTIME 08/09/20 09/22/23 cholecalciferol (vitamin D3) 25 25 mcg PO BID 08/09/20 09/22/23 mcg (1,000 unit) tablet hydroxyzine HCl 50 mg tablet 50 mg PO TID PRN Anxiety 08/09/20 09/22/23 linaclotide 145 mcg capsule 145 mcg PO DAILY 08/09/20 09/22/23 mirtazapine 45 mg tablet 45 mg PO BEDTIME 08/09/20 09/22/23 multivitamin 1 cap PO DAILY 08/09/20 09/22/23 omeprazole 20 mg tablet,delayed 20 mg PO DAILY 08/09/20 09/22/23 release sertraline 50 mg tablet 50 mg PO BEDTIME 08/09/20 09/22/23 Previous Rx's Medication Instructions Recorded escitalopram oxalate 10 mg tablet 10 mg PO DAILY #30 tabs 09/06/20 acetaminophen 325 mg capsule 325 mg PO QID PRN fever or pain 09/16/20 #30 caps aspirin 81 mg tablet,delayed 81 mg PO BEDTIME #90 tabs 09/28/20 release metoprolol succinate 50 mg 50 mg PO DAILY #90 tabs 09/28/20 tablet,extended release 24 hr menthol 0.44 %-zinc oxide 20.6 % 1 appl topical QID PRN skin 12/13/20 topical ointment (Calmoseptine) irritation #113 grams magnesium citrate 150 ml PO DAILY PRN constipation 12/14/20 #296 mL diphenhydramine HCl 25 mg capsule 25 mg PO BEDTIME insomnia #7 caps 12/25/20 (Benadryl) melatonin 10 mg tablet,extended 10 mg PO .nightly #5 tabs 01/07/21 release cefdinir 300 mg capsule 300 mg PO BID Otitis media 10 days 04/14/21 #20 caps ondansetron HCl 4 mg tablet 4 mg PO Q8H PRN nausea and 04/14/21 (Zofran) vomiting #14 tabs metoprolol succinate 50 mg 50 mg PO DAILY #14 tabs 05/22/21 tablet,extended release 24 hr ciprofloxacin 0.3 %-dexamethasone 4 drp otic (ears) BID 7 days 05/26/21 0.1 % ear drops,suspension (Ciprodex) polyethylene glycol 3350 17 17 g PO DAILY PRN constipation 07/31/21 gram/dose oral powder (Miralax) #238 grams hydrocortisone acetate 25 mg 25 mg AL BID #12 ea 08/01/21 rectal suppository (Anucort-HC) cefuroxime axetil 500 mg tablet 500 mg PO BID 7 days #14 tabs 09/01/21 meclizine 25 mg tablet 25 mg PO TID PRN dizziness #10 tabs 09/01/21 zolpidem 5 mg tablet (Ambien) 5 mg PO BEDTIME PRN sleep #2 tabs 10/29/21 zolpidem 5 mg tablet (Ambien) 5 mg PO BEDTIME PRN sleep #2 tabs 10/29/21 levofloxacin 500 mg tablet 500 mg PO DAILY 7 days #7 tabs 07/23/22 levofloxacin 500 mg tablet 500 mg PO DAILY #6 tabs 08/25/22 ofloxacin 0.3 % ear drops 10 drp otic (ears) DAILY 7 days #5 08/25/22 mL hydrocortisone 2.5 % topical cream 1 appl AL BEDTIME PRN hemorrhoids 09/20/22 with perineal applicator #30 grams docusate sodium 100 mg capsule 100 mg PO BID PRN Constipation #14 12/06/22 (Colace) caps phenylephrine 0.25 %-mineral oil 1 appl AL BID PRN hemorrhoids #56 12/06/22 14 %-petrolatm 74.9 % rectal grams ointment (Hemorrhoidal(phenyleph-min oil-petrolat)) polyethylene glycol 3350 17 17 g PO BID #119 grams 12/06/22 gram/dose oral powder (Miralax) cefuroxime axetil 500 mg tablet 500 mg PO BID 10 days #20 tabs 12/16/22 alprazolam 0.25 mg tablet 0.25 mg PO QID #7 tabs 01/04/23 ofloxacin 0.3 % ear drops 5 drp otic (ear) left BID 7 days 01/06/23 #5 mL alprazolam 0.25 mg tablet 0.25 mg PO TID PRN anxiety #7 tabs 01/11/23 alprazolam 0.25 mg tablet 0.25 mg PO TID PRN anxiety #3 tabs 02/02/23 alprazolam 0.5 mg tablet (Xanax) 0.5 mg PO BEDTIME PRN anxiety #7 04/20/23 tabs metoprolol succinate 50 mg 50 mg PO DAILY #7 tabs 05/18/23 tablet,extended release 24 hr lisinopril 40 mg tablet 40 mg PO QPM #90 tabs 05/22/23 ondansetron 4 mg disintegrating 4 mg PO Q8H PRN nausea and 07/06/23 tablet vomiting #10 tabs hydrocortisone 1 % topical cream 1 appl topical BID PRN rash #28.4 08/03/23 grams phenylephrine 0.25 %-mineral oil 1 appl AL BID PRN hemorrhoids #57 08/17/23 14 %-petrolatm 74.9 % rectal grams ointment (Preparation H) polyethylene glycol 3350 17 17 g PO BID #119 grams 08/17/23 gram/dose oral powder (Miralax) diphenhydramine HCl 25 mg tablet 25 mg PO TID PRN Pruritus #20 tabs 08/25/23 (Benadryl Allergy) phenylephrine 0.25 %-cocoa butter 1 supp AL BID #24 ea 08/25/23 88.44 % rectal suppository (Preparation H(phenyleph,cocoa buttr)) phenylephrine 0.25 %-mineral oil 1 appl AL BID #28 grams 08/25/23 14 %-petrolatm 74.9 % rectal ointment (Preparation H) fluticasone propionate 50 2 spray intranasal DAILY #16 grams 09/16/23 mcg/actuation nasal spray,suspension (Flonase Allergy Relief) loratadine 10 mg tablet 10 mg PO DAILY #30 tabs 09/16/23 menthol 0.44 %-zinc oxide 20.6 % 1 appl topical QID PRN skin 09/22/23 topical ointment (Calmoseptine) irritation #113 grams cephalexin 500 mg capsule 500 mg PO TID #15 caps 10/20/23 nitrofurantoin 100 mg PO Q12H 5 days #10 caps 10/20/23 monohydrate/macrocrystals 100 mg capsule (Macrobid) Allergies Allergy/AdvReac Type Severity Reaction Status Date / Time penicillin G [Penicillin G] Allergy Severe ITCHY/RASH Verified 10/20/23 19:53 Sulfa (Sulfonamide Allergy Severe ITCHY,RASH, Verified 10/20/23 19:53 Antibiotics) rash [Sulfa (Sulfonamides)] trimethoprim [From Bactrim] Allergy Severe HIVES Verified 10/20/23 19:53 penicillin V Allergy Unknown rash Verified 10/20/23 19:53 sulfacetamide Allergy Unknown unknown Verified 10/20/23 19:53 [From Sulfacet-R] sulfur [From Sulfacet-R] Allergy Unknown unknown Verified 10/20/23 19:53 [facility] Past Medical History Medical History Bleeding hemorrhoids Essential hypertension PVC (premature ventricular contraction) PAC (premature atrial contraction) SVT (supraventricular tachycardia) Chronic constipation High blood pressure Vertigo Dementia Arthritis Anxiety Surgical History No pertinent past surgical history Social History Social History Alcohol intake: never Patient Tobacco Use Status: Never used Tobacco Advance Directives: No Advance Directives Information Provided: Yes Physical Exam ED Vital Signs: Vital Signs - 24 hr 10/21/23 05:23 10/21/23 06:00 10/21/23 06:23 Temperature 98.1 F Pulse Rate 87 77 76 Respiratory Rate 18 18 18 Blood Pressure 171/79 H 151/68 H 150/76 H Pulse Oximetry 99 99 96 Oxygen Delivery Method Room Air Room Air Room Air BMI result Body Mass Index 25.6 Appearance: Alert. Oriented X3. No acute distress. Anxious ENT: Pharynx normal. Oral Mucosa moist Neck: Normal inspection. Neck supple. CVS: Normal heart rate and rhythm. Pulses normal. Respiratory: No respiratory distress. Equal air entry bilateral, no wheezing/rales/rhonchi Abdomen: Soft and nontender. Bowel sounds are present, Skin: Skin warm and dry. Normal skin color. Normal skin turgor. Extremities: No lower extremity edema. No calf tenderness left 5th finger in splint and dressing Neuro: Oriented X 3. No motor deficit. Medications Administered Discontinued Medications Generic Name Dose Route Start Last Admin Trade Name Freq PRN Reason Stop Dose Admin Metoprolol Succinate 50 mg 10/21/23 06:16 10/21/23 06:24 Metoprolol Succinate Er 50 Mg Tab.Er.24h PO 10/21/23 06:17 50 mg ONCE ONE Administration Protocol Medical Decision Making Medical Decision Making [facility] Narrative: Patient anxiety problem been here multiple times for same discharge patient back to home patient requested metoprolol as she does not have the medicine today which was given in the ER blood pressure stable Discharge Plan Discharge Clinical Impression: Generalized anxiety disorder with panic attacks, Laceration of hand, left Patient Disposition: Home, Self-Care Instructions: Generalized Anxiety Disorder (ED) Additional Instructions: Follow-up with instructions as given during last discharge Taking medication as prescribed Prescriptions: No Action escitalopram oxalate 10 mg tablet 10 mg PO DAILY Qty: 30 1RF metoprolol succinate 50 mg tablet extended release 24 hr 50 mg PO DAILY Qty: 90 2RF aspirin 81 mg tablet,delayed release (DR/EC) 81 mg PO BEDTIME Qty: 90 2RF polyethylene glycol 3350 [Miralax] 17 gram/dose powder 17 g PO DAILY PRN (Reason: constipation) Qty: 238 0RF lisinopril 40 mg tablet 40 mg PO QPM Qty: 90 0RF Rx Instructions: Please call and schedule cardiology appt acetaminophen 325 mg capsule 325 mg PO QID PRN (Reason: fever or pain) Qty: 30 0RF melatonin 10 mg tablet extended release 10 mg PO .nightly Qty: 5 0RF metoprolol succinate 50 mg tablet extended release 24 hr 50 mg PO DAILY Qty: 14 0RF ciprofloxacin-dexamethasone [Ciprodex] 0.3-0.1 % drops,suspension 4 drp otic (ears) BID 7 Days 0RF alprazolam 0.5 mg Tablet 0.5 mg PO TID PRN (Reason: Anxiety) hydroxyzine HCl 50 mg Tablet 50 mg PO TID PRN (Reason: Anxiety) mirtazapine 45 mg Tablet 45 mg PO BEDTIME multivitamin Capsule 1 cap PO DAILY sertraline 50 mg Tablet 50 mg PO BEDTIME aripiprazole 2 mg Tablet 2 mg PO BEDTIME cholecalciferol (vitamin D3) 25 mcg (1,000 unit) Tablet 25 mcg PO BID omeprazole 20 mg Tablet,Delayed Release (Dr/Ec) 20 mg PO DAILY linaclotide 145 mcg Capsule 145 mcg PO DAILY diphenhydramine HCl [Benadryl] 25 mg capsule 25 mg PO BEDTIME Qty: 7 0RF cefdinir 300 mg capsule 300 mg PO BID 10 Days Qty: 20 0RF ondansetron HCl [Zofran] 4 mg tablet 4 mg PO Q8H PRN (Reason: nausea and vomiting) Qty: 14 0RF cefuroxime axetil 500 mg tablet 500 mg PO BID 7 Days Qty: 14 0RF meclizine 25 mg tablet 25 mg PO TID PRN (Reason: dizziness) Qty: 10 0RF levofloxacin 500 mg tablet 500 mg PO DAILY 7 Days Qty: 7 0RF cefuroxime axetil 500 mg tablet 500 mg PO BID 10 Days Qty: 20 0RF alprazolam 0.25 mg tablet 0.25 mg PO QID Qty: 7 0RF levofloxacin 500 mg tablet 500 mg PO DAILY Qty: 6 0RF Rx Instructions: start on 08/26 ofloxacin 0.3 % drops 10 drp otic (ears) DAILY 7 Days Qty: 5 0RF Rx Instructions: can substitute eye drops if necessary hydrocortisone 2.5 % cream with perineal applicator 1 appl AL BEDTIME PRN (Reason: hemorrhoids) Qty: 30 0RF Hemorrhoidal(PE-min oil-emma) 0.25-14-74.9 % ointment 1 appl AL BID PRN (Reason: hemorrhoids) Qty: 56 0RF polyethylene glycol 3350 [Miralax] 17 gram/dose powder 17 g PO BID Qty: 119 0RF docusate sodium [Colace] 100 mg capsule 100 mg PO BID PRN (Reason: Constipation) Qty: 14 0RF ofloxacin 0.3 % drops 5 drp otic (ear) left BID 7 Days Qty: 5 0RF alprazolam 0.25 mg tablet 0.25 mg PO TID PRN (Reason: anxiety) Qty: 7 0RF alprazolam [Xanax] 0.5 mg tablet 0.5 mg PO BEDTIME PRN (Reason: anxiety) Qty: 7 0RF metoprolol succinate 50 mg tablet extended release 24 hr 50 mg PO DAILY Qty: 7 0RF Preparation H 0.25-14-74.9 % ointment 1 appl AL BID PRN (Reason: hemorrhoids) Qty: 57 0RF polyethylene glycol 3350 [Miralax] 17 gram/dose powder 17 g PO BID Qty: 119 0RF Preparation H 0.25-14-74.9 % ointment 1 appl AL BID Qty: 28 0RF Preparation H(pe,cb) 0.25-88.44 % suppository 1 supp AL BID Qty: 24 0RF diphenhydramine HCl [Benadryl Allergy] 25 mg tablet 25 mg PO TID PRN (Reason: Pruritus) Qty: 20 0RF loratadine 10 mg tablet 10 mg PO DAILY Qty: 30 0RF fluticasone propionate [Flonase Allergy Relief] 50 mcg/actuation spray,suspension 2 spray intranasal DAILY Qty: 16 0RF Rx Instructions: administer into each nostril alprazolam 0.25 mg tablet 0.25 mg PO TID PRN (Reason: anxiety) Qty: 3 0RF ondansetron 4 mg tablet,disintegrating 4 mg PO Q8H PRN (Reason: nausea and vomiting) Qty: 10 0RF hydrocortisone 1 % cream 1 appl topical BID PRN (Reason: rash) Qty: 28.4 0RF nitrofurantoin monohyd/m-cryst [Macrobid] 100 mg capsule 100 mg PO Q12H 5 Days Qty: 10 0RF Rx Instructions: must administer with a meal/food cephalexin 500 mg capsule 500 mg PO TID Qty: 15 0RF Calmoseptine 0.44-20.6 % ointment 1 appl topical QID PRN (Reason: skin irritation) Qty: 113 0RF magnesium citrate Solution 150 ml PO DAILY PRN (Reason: constipation) Qty: 296 0RF Rx Instructions: take only when needed for constipation hydrocortisone acetate [Anucort-HC] 25 mg suppository 25 mg AL BID Qty: 12 3RF zolpidem [Ambien] 5 mg tablet 5 mg PO BEDTIME PRN (Reason: sleep) Qty: 2 0RF zolpidem [Ambien] 5 mg tablet 5 mg PO BEDTIME PRN (Reason: sleep) Qty: 2 0RF menthol-zinc oxide [Calmoseptine] 0.44-20.6 % ointment 1 appl topical QID PRN (Reason: skin irritation) Qty: 113 0RF Interventions: ED Discharge Assessment Last Done: 10/21/23 06:37 Discharge Date/Time: 10/21/23 06:38
[2023-10-21 06:23] VITALS: BP 150/76; PULSE 76; RESP 18; O2SAT 96
[2023-10-21] MEDS: Metoprolol Succinate ER 50 MG TAB.ER.24H PO (06:24)
== END 2023-10-21 06:38 | disposition home or self-care (01) ==
PROVIDERS: Emergency Provider Internal Medicine; PCP Internal Medicine Geriatric Medicine
DX: S61.412A Laceration without foreign body of left hand, initial encounter (principal); F41.0 Panic disorder [episodic paroxysmal anxiety]; R11.2 Nausea with vomiting, unspecified; F41.1 Generalized anxiety disorder; W26.9XXA Contact with unspecified sharp object(s), initial encounter; Y93.9 Activity, unspecified; Y92.9 Unspecified place or not applicable; Y99.9 Unspecified external cause status; Z79.899 Other long term (current) drug therapy
CPT/HCPCS: 99283; 99284

== ENCOUNTER 2023-10-24 00:19 | Emergency (ER) | payer OTHER, SELFPAY ==
[2023-10-24 00:26] VITALS: BP 172/84; PULSE 92; O2SAT 99
[2023-10-24 00:31] VITALS: BP 132/80; PULSE 84; RESP 18; TEMP 36.7; O2SAT 98; BMI 26.9
--- NOTE | 2023-10-24 01:10 | ED_ITS ---
HPI - General Adult General Chief complaint: Wound/Laceration Stated complaint: L hand pain after stitches Time Seen by Provider: 10/24/23 00:59 Source: patient, RN notes reviewed and old records reviewed Mode of arrival: EMS Limitations: no limitations History of Present Illness HPI narrative: 78-year-old female presents for evaluation of left hand and wrist pain. Patient is well-known to this facility for frequent ED visits. She was seen here on 10/20/2023 on 2 separate occasions. Her 2nd visit that day was due to a laceration right hand after a fall At that time, the patient was exiting her daughter's house when she fell on the concrete She sustained a laceration to the palmar side of the left hand as well as an extensor tendon laceration to the left 5th finger Patient reports that due to this she is seeing orthopedics at 8:00 a.m. later today She has been taking the antibiotics that she was previously prescribed 4 days ago. Patient states that her left hand has been hurting She has not changed the bandage/dressing She notes discoloration to her left wrist Related Data Home Medications Medication Instructions Recorded Confirmed alprazolam 0.5 mg tablet 0.5 mg PO TID PRN Anxiety 08/09/20 09/22/23 aripiprazole 2 mg tablet 2 mg PO BEDTIME 08/09/20 09/22/23 cholecalciferol (vitamin D3) 25 25 mcg PO BID 08/09/20 09/22/23 mcg (1,000 unit) tablet hydroxyzine HCl 50 mg tablet 50 mg PO TID PRN Anxiety 08/09/20 09/22/23 linaclotide 145 mcg capsule 145 mcg PO DAILY 08/09/20 09/22/23 mirtazapine 45 mg tablet 45 mg PO BEDTIME 08/09/20 09/22/23 multivitamin 1 cap PO DAILY 08/09/20 09/22/23 omeprazole 20 mg tablet,delayed 20 mg PO DAILY 08/09/20 09/22/23 release sertraline 50 mg tablet 50 mg PO BEDTIME 08/09/20 09/22/23 Previous Rx's Medication Instructions Recorded escitalopram oxalate 10 mg tablet 10 mg PO DAILY #30 tabs 09/06/20 acetaminophen 325 mg capsule 325 mg PO QID PRN fever or pain 09/16/20 #30 caps aspirin 81 mg tablet,delayed 81 mg PO BEDTIME #90 tabs 09/28/20 release metoprolol succinate 50 mg 50 mg PO DAILY #90 tabs 09/28/20 tablet,extended release 24 hr menthol 0.44 %-zinc oxide 20.6 % 1 appl topical QID PRN skin 12/13/20 topical ointment (Calmoseptine) irritation #113 grams magnesium citrate 150 ml PO DAILY PRN constipation 12/14/20 #296 mL diphenhydramine HCl 25 mg capsule 25 mg PO BEDTIME insomnia #7 caps 12/25/20 (Benadryl) melatonin 10 mg tablet,extended 10 mg PO .nightly #5 tabs 01/07/21 release cefdinir 300 mg capsule 300 mg PO BID Otitis media 10 days 04/14/21 #20 caps ondansetron HCl 4 mg tablet 4 mg PO Q8H PRN nausea and 04/14/21 (Zofran) vomiting #14 tabs metoprolol succinate 50 mg 50 mg PO DAILY #14 tabs 05/22/21 tablet,extended release 24 hr ciprofloxacin 0.3 %-dexamethasone 4 drp otic (ears) BID 7 days 05/26/21 0.1 % ear drops,suspension (Ciprodex) polyethylene glycol 3350 17 17 g PO DAILY PRN constipation 07/31/21 gram/dose oral powder (Miralax) #238 grams hydrocortisone acetate 25 mg 25 mg [place] BID #12 ea 08/01/21 rectal suppository (Anucort-HC) cefuroxime axetil 500 mg tablet 500 mg PO BID 7 days #14 tabs 09/01/21 meclizine 25 mg tablet 25 mg PO TID PRN dizziness #10 tabs 09/01/21 zolpidem 5 mg tablet (Ambien) 5 mg PO BEDTIME PRN sleep #2 tabs 10/29/21 zolpidem 5 mg tablet (Ambien) 5 mg PO BEDTIME PRN sleep #2 tabs 10/29/21 levofloxacin 500 mg tablet 500 mg PO DAILY 7 days #7 tabs 07/23/22 levofloxacin 500 mg tablet 500 mg PO DAILY #6 tabs 08/25/22 ofloxacin 0.3 % ear drops 10 drp otic (ears) DAILY 7 days #5 08/25/22 mL hydrocortisone 2.5 % topical cream 1 appl WV BEDTIME PRN hemorrhoids 11/11/22 with perineal applicator #30 grams docusate sodium 100 mg capsule 100 mg PO BID PRN Constipation #14 12/06/22 (Colace) caps phenylephrine 0.25 %-mineral oil 1 appl W[place] BID PRN hemorrhoids #56 12/06/22 14 %-petrolatm 74.9 % rectal grams ointment (Hemorrhoidal(phenyleph-min oil-petrolat)) polyethylene glycol 3350 17 17 g PO BID #119 grams 12/06/22 gram/dose oral powder (Miralax) cefuroxime axetil 500 mg tablet 500 mg PO BID 10 days #20 tabs 12/16/22 alprazolam 0.25 mg tablet 0.25 mg PO QID #7 tabs 01/04/23 ofloxacin 0.3 % ear drops 5 drp otic (ear) left BID 7 days 01/06/23 #5 mL alprazolam 0.25 mg tablet 0.25 mg PO TID PRN anxiety #7 tabs 01/11/23 alprazolam 0.25 mg tablet 0.25 mg PO TID PRN anxiety #3 tabs 02/02/23 alprazolam 0.5 mg tablet (Xanax) 0.5 mg PO BEDTIME PRN anxiety #7 04/20/23 tabs metoprolol succinate 50 mg 50 mg PO DAILY #7 tabs 05/18/23 tablet,extended release 24 hr lisinopril 40 mg tablet 40 mg PO QPM #90 tabs 05/22/23 ondansetron 4 mg disintegrating 4 mg PO Q8H PRN nausea and 07/06/23 tablet vomiting #10 tabs hydrocortisone 1 % topical cream 1 appl topical BID PRN rash #28.4 08/03/23 grams phenylephrine 0.25 %-mineral oil 1 appl W[place] BID PRN hemorrhoids #57 08/17/23 14 %-petrolatm 74.9 % rectal grams ointment (Preparation H) polyethylene glycol 3350 17 17 g PO BID #119 grams 08/17/23 gram/dose oral powder (Miralax) diphenhydramine HCl 25 mg tablet 25 mg PO TID PRN Pruritus #20 tabs 08/25/23 (Benadryl Allergy) phenylephrine 0.25 %-cocoa butter 1 supp WV BID #24 ea 10/16/23 88.44 % rectal suppository (Preparation H(phenyleph,cocoa buttr)) phenylephrine 0.25 %-mineral oil 1 appl W[place] BID #28 grams 08/25/23 14 %-petrolatm 74.9 % rectal ointment (Preparation H) fluticasone propionate 50 2 spray intranasal DAILY #16 grams 09/16/23 mcg/actuation nasal spray,suspension (Flonase Allergy Relief) loratadine 10 mg tablet 10 mg PO DAILY #30 tabs 09/16/23 menthol 0.44 %-zinc oxide 20.6 % 1 appl topical QID PRN skin 09/22/23 topical ointment (Calmoseptine) irritation #113 grams cephalexin 500 mg capsule 500 mg PO TID #15 caps 10/20/23 nitrofurantoin 100 mg PO Q12H 5 days #10 caps 10/20/23 monohydrate/macrocrystals 100 mg capsule (Macrobid) Allergies Allergy/AdvReac Type Severity Reaction Status Date / Time penicillin G [Penicillin G] Allergy Severe ITCHY/RASH Verified 10/24/23 00:44 Sulfa (Sulfonamide Allergy Severe ITCHY,RASH, Verified 10/24/23 00:44 Antibiotics) rash [Sulfa (Sulfonamides)] trimethoprim [From Bactrim] Allergy Severe HIVES Verified 10/24/23 00:44 penicillin V Allergy Unknown rash Verified 10/24/23 00:44 sulfacetamide Allergy Unknown unknown Verified 10/24/23 00:44 [From Sulfacet-R] sulfur [From Sulfacet-R] Allergy Unknown unknown Verified 10/24/23 00:44 Review of Systems Constitutional: Constitutional: Denies body ache(s), Denies chills and Denies fever(s) Eyes: Eyes: Denies irritation ENT: Denies sore throat Cardiovascular: Cardiovascular: Denies chest pain and Denies dyspnea Respiratory: Respiratory: Denies cough and Denies dyspnea Gastrointestinal: Gastrointestinal: Denies abdominal pain, Denies nausea and Denies vomiting Musculoskeletal: Musculoskeletal: Reports arthralgias, Reports joint swelling and Reports limited range of motion Integumentary/Breasts: Skin/Breast: Reports change in pigmentation PMFSH Past Medical History Medical History Bleeding hemorrhoids Essential hypertension PVC (premature ventricular contraction) PAC (premature atrial contraction) SVT (supraventricular tachycardia) Chronic constipation High blood pressure Vertigo Dementia Arthritis Anxiety Surgical History No pertinent past surgical history Social History Social History Alcohol intake: never Patient Tobacco Use Status: Never used Tobacco Advance Directives: No Advance Directives Information Provided: Yes Physical Exam ED Vital Signs: Vital Signs - 24 hr 10/24/23 00:31 Temperature 98.0 F Pulse Rate 84 Respiratory Rate 18 Blood Pressure 132/80 Pulse Oximetry 98 Oxygen Delivery Method Room Air BMI result Body Mass Index 26.9 Const General: healthy appearing, comfortable, no acute distress, alert and awake Nutritional Appearance: well nourished Orientation/consciousness: patient oriented x3 HENMT Head: Yes normocephalic and Yes atraumatic Eyes Eyelids: Yes eyelids normal Conjunctivae: conjunctivae normal Sclerae: sclerae normal Corneas: corneas normal Pupils: Equal, round and reactive pupils present EOM: EOMs intact bilaterally Neck Neck: Yes full ROM Resp Effort & Inspection: normal respiratory effort, able to speak in complete sentences and not labored GI Inspection: No distended Palpation (GI): Soft to palpation, not firm, nontender, no guarding and not rigid Skin Other: All the patient's sutures to the left palmar surface that had are intact. There was some scabbing that was removed by nursing staff. There is no wound dehiscence, no erythema, no purulent drainage. Similarly, the laceration to left 5th finger is intact. There is some scab/crusting overlying the sutures. However there is no evidence of dehiscence, no erythema, no wound dehiscence. General skin exam: elasticity normal Neuro General: patient oriented x3 Cranial nerves: Yes Equal, round and reactive pupils present and Yes Bilaterally intact EOM present Cognition (Neuro): normal cognition Extrem Other: Patient has ecchymosis extending on the ventral surface of the left proximal hand to mid forearm. Medical Decision Making Medical Decision Making MDM Narrative: Patient was seen here 4 days ago on 10/20/2023 for a fall. She presented for worsening pain, there have been no additional falls. She was actually seen by myself, she had hand and wrist x-ray at the time. These were negative for fracture. She had a laceration to the left hand that was repaired. The wound appears to be healing well, no evidence of infectious process. She has follow- up an approximately 6-1/2 hours for the left 5th finger extensors tendon laceration. I do not see any indication for further emergent imaging at this time. Differential Diagnosis Differential Diagnoses: The differential diagnosis associated with the presentation includes Left hand pain Hand sprain Contusion Wrist sprain Laceration Cellulitis Discharge Plan Discharge Clinical Impression: Left wrist sprain Patient Disposition: Home, Self-Care Instructions: Wrist Sprain (ED) Additional Instructions: Follow-up with orthopedics later today as planned Change your dressing daily You may apply topical antibiotics once daily Return in 10 days for suture removal Prescriptions: No Action escitalopram oxalate 10 mg tablet 10 mg PO DAILY Qty: 30 1RF metoprolol succinate 50 mg tablet extended release 24 hr 50 mg PO DAILY Qty: 90 2RF aspirin 81 mg tablet,delayed release (DR/EC) 81 mg PO BEDTIME Qty: 90 2RF polyethylene glycol 3350 [Miralax] 17 gram/dose powder 17 g PO DAILY PRN (Reason: constipation) Qty: 238 0RF lisinopril 40 mg tablet 40 mg PO QPM Qty: 90 0RF Rx Instructions: Please call and schedule cardiology appt acetaminophen 325 mg capsule 325 mg PO QID PRN (Reason: fever or pain) Qty: 30 0RF melatonin 10 mg tablet extended release 10 mg PO .nightly Qty: 5 0RF metoprolol succinate 50 mg tablet extended release 24 hr 50 mg PO DAILY Qty: 14 0RF ciprofloxacin-dexamethasone [Ciprodex] 0.3-0.1 % drops,suspension 4 drp otic (ears) BID 7 Days 0RF alprazolam 0.5 mg Tablet 0.5 mg PO TID PRN (Reason: Anxiety) hydroxyzine HCl 50 mg Tablet 50 mg PO TID PRN (Reason: Anxiety) mirtazapine 45 mg Tablet 45 mg PO BEDTIME multivitamin Capsule 1 cap PO DAILY sertraline 50 mg Tablet 50 mg PO BEDTIME aripiprazole 2 mg Tablet 2 mg PO BEDTIME cholecalciferol (vitamin D3) 25 mcg (1,000 unit) Tablet 25 mcg PO BID omeprazole 20 mg Tablet,Delayed Release (Dr/Ec) 20 mg PO DAILY linaclotide 145 mcg Capsule 145 mcg PO DAILY diphenhydramine HCl [Benadryl] 25 mg capsule 25 mg PO BEDTIME Qty: 7 0RF cefdinir 300 mg capsule 300 mg PO BID 10 Days Qty: 20 0RF ondansetron HCl [Zofran] 4 mg tablet 4 mg PO Q8H PRN (Reason: nausea and vomiting) Qty: 14 0RF cefuroxime axetil 500 mg tablet 500 mg PO BID 7 Days Qty: 14 0RF meclizine 25 mg tablet 25 mg PO TID PRN (Reason: dizziness) Qty: 10 0RF levofloxacin 500 mg tablet 500 mg PO DAILY 7 Days Qty: 7 0RF cefuroxime axetil 500 mg tablet 500 mg PO BID 10 Days Qty: 20 0RF alprazolam 0.25 mg tablet 0.25 mg PO QID Qty: 7 0RF levofloxacin 500 mg tablet 500 mg PO DAILY Qty: 6 0RF Rx Instructions: start on 08/26 ofloxacin 0.3 % drops 10 drp otic (ears) DAILY 7 Days Qty: 5 0RF Rx Instructions: can substitute eye drops if necessary hydrocortisone 2.5 % cream with perineal applicator 1 appl [place] BEDTIME PRN (Reason: hemorrhoids) Qty: 30 0RF Hemorrhoidal(PE-min oil-emma) 0.25-14-74.9 % ointment 1 appl W[place] BID PRN (Reason: hemorrhoids) Qty: 56 0RF polyethylene glycol 3350 [Miralax] 17 gram/dose powder 17 g PO BID Qty: 119 0RF docusate sodium [Colace] 100 mg capsule 100 mg PO BID PRN (Reason: Constipation) Qty: 14 0RF ofloxacin 0.3 % drops 5 drp otic (ear) left BID 7 Days Qty: 5 0RF alprazolam 0.25 mg tablet 0.25 mg PO TID PRN (Reason: anxiety) Qty: 7 0RF alprazolam [Xanax] 0.5 mg tablet 0.5 mg PO BEDTIME PRN (Reason: anxiety) Qty: 7 0RF metoprolol succinate 50 mg tablet extended release 24 hr 50 mg PO DAILY Qty: 7 0RF Preparation H 0.25-14-74.9 % ointment 1 appl W[place] BID PRN (Reason: hemorrhoids) Qty: 57 0RF polyethylene glycol 3350 [Miralax] 17 gram/dose powder 17 g PO BID Qty: 119 0RF Preparation H 0.25-14-74.9 % ointment 1 appl W[place] BID Qty: 28 0RF Preparation H(pe,cb) 0.25-88.44 % suppository 1 supp [place] BID Qty: 24 0RF diphenhydramine HCl [Benadryl Allergy] 25 mg tablet 25 mg PO TID PRN (Reason: Pruritus) Qty: 20 0RF loratadine 10 mg tablet 10 mg PO DAILY Qty: 30 0RF fluticasone propionate [Flonase Allergy Relief] 50 mcg/actuation spr ay,suspension 2 spray intranasal DAILY Qty: 16 0RF Rx Instructions: administer into each nostril alprazolam 0.25 mg tablet 0.25 mg PO TID PRN (Reason: anxiety) Qty: 3 0RF ondansetron 4 mg tablet,disintegrating 4 mg PO Q8H PRN (Reason: nausea and vomiting) Qty: 10 0RF hydrocortisone 1 % cream 1 appl topical BID PRN (Reason: rash) Qty: 28.4 0RF nitrofurantoin monohyd/m-cryst [Macrobid] 100 mg capsule 100 mg PO Q12H 5 Days Qty: 10 0RF Rx Instructions: must administer with a meal/food cephalexin 500 mg capsule 500 mg PO TID Qty: 15 0RF Calmoseptine 0.44-20.6 % ointment 1 appl topical QID PRN (Reason: skin irritation) Qty: 113 0RF magnesium citrate Solution 150 ml PO DAILY PRN (Reason: constipation) Qty: 296 0RF Rx Instructions: take only when needed for constipation hydrocortisone acetate [Anucort-HC] 25 mg suppository 25 mg WV BID Qty: 12 3RF zolpidem [Ambien] 5 mg tablet 5 mg PO BEDTIME PRN (Reason: sleep) Qty: 2 0RF zolpidem [Ambien] 5 mg tablet 5 mg PO BEDTIME PRN (Reason: sleep) Qty: 2 0RF menthol-zinc oxide [Calmoseptine] 0.44-20.6 % ointment 1 appl topical QID PRN (Reason: skin irritation) Qty: 113 0RF
[2023-10-24] MEDS: Bacitracin Oint 0.9 GM PACKET 1 APPL TOPICAL (01:40)
--- NOTE | 2023-10-24 01:40 | PC.NURSE ---
this rn assumed care of pt. pt ericradha from home reporting pain in left hand. pt seen here at [facility] a few days ago for a fall down the stairs. pt reports broken hand. pt noted to have laceration to the left palm and left pinky. this rn cleaned and wrapped laceration and re-splinted pinky. pt tolerated well. unable to scan bacitracin due to throwing away.
== END 2023-10-24 01:58 | disposition home or self-care (01) ==
PROVIDERS: Emergency Provider Internal Medicine
DX: S63.502A Unspecified sprain of left wrist, initial encounter (principal); X58.XXXA Exposure to other specified factors, initial encounter; Y93.9 Activity, unspecified; Y92.9 Unspecified place or not applicable; Y99.9 Unspecified external cause status; Z79.899 Other long term (current) drug therapy; Z48.01 Encounter for change or removal of surgical wound dressing
CPT/HCPCS: 99202; 99283; 99284

== ENCOUNTER 2023-10-24 07:58 | Outpatient (AMB) | payer OTHER, SELFPAY ==
--- NOTE | 2023-10-24 08:13 | A.OFFVIS_ITS ---
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 She states that she was waling down the stairs fro her daughters house and she lost balance which lead her to fall on her left hand. Having throbbing pain per patient. 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 The patient presented to the ED on 10/20/2023 status post a fall leaving her daughter?s house when she slipped and fell on the concrete. Patient has 2 lacerations to left hand. The largest is approximately 8 cm at the base of the thumb on the palmar surface. This is a linear but jagged laceration. 4 cm laceration around the radial side of the left 5th finger distal to the DIP joint. Patient says left 5th finger at the DIP joint is stuck in a flexed position and she is unable to extend the distal finger. Inspection of the wound shows a clearly lacerated extensor tendon at the DIP joint, per ED note. Her finger was splinted, she was prescribed an antibioti c (cephalexin 500 mg) PO TID for 5 days, and she was referred to orthopedics. While in the office today she reports having throbbing pain in the left hand. [facility] Medical History Bleeding hemorrhoids Essential hypertension PVC (premature ventricular contraction) PAC (premature atrial contraction) SVT (supraventricular tachycardia) Chronic constipation High blood pressure Vertigo Dementia Arthritis Anxiety Surgical History No pertinent past surgical history Social History Alcohol intake: never Patient Tobacco Use Status: Never used Tobacco Review of Systems Const All systems reviewed & are unremarkable except as noted in HPI and below Physical Exam Const General: cooperative and no acute distress Orientation/consciousness: patient oriented x3 Resp Effort & Inspection: normal respiratory effort and able to speak in complete sentences Cardio Peripheral pulses: Peripheral pulses 2+ throughout Skin General skin exam: no rashes or lesions noted Neuro General: patient oriented x3 Extrem Other: Left hand: Little finger laceration nearly circumferential. Sutures are intact. No surrounding erythema or redness. Able to flex at the CMC, PIP, and DIP. Unable to extend at the DIP. Sensation is slightly diminished dip distally. Capillary refill is brisk. Laceration over the thenar eminence is clean, dry, and intact. Sutures are intact. No surrounding erythema or drainage. No signs of infection. Able to flex and extend at the CMC and IP joint. Sensation intact. Capillary refill is brisk. Assessment & Plan Assessment & Plan (1) Laceration of extensor muscle, fascia and tendon of left little finger at forearm level, initial encounter: Code(s): S56.428A - Laceration of extensor muscle, fascia and tendon of left little finger at forearm level, initial encounter (2) Laceration of hand, left: Code(s): S61.412A - Laceration without foreign body of left hand, initial encounter Qualifiers: Encounter type: initial encounter Foreign body presence: unspecified Qualified Code(s): S61.412A - Laceration without foreign body of left hand, initial encounter Plan Ms. Wing is an 78-year-old right hand dominant female who presents in the office today, as a new patient, for an evaluation of her left hand. The patient presented to the ED on 10/20/2023 status post a fall leaving her daughter?s house when she slipped and fell on the concrete. Patient has 2 lacerations to left hand. The largest is approximately 8 cm at the base of the thumb on the palmar surface. This is a linear but jagged laceration. 4 cm laceration around the radial side of the left 5th finger distal to the DIP joint. Patient says left 5th finger at the DIP joint is stuck in a flexed position and she is unable to extend the distal finger. Inspection of the wound shows a clearly lacerated extensor tendon at the DIP joint, per ED note. Her finger was splinted, she was prescribed an antibiotic (cephalexin 500 mg) PO TID for 5 days, and she was referred to orthopedics. While in the office today she reports having throbbing pain in the left hand. Dr. Mcarthur was available to consult with me about the patient while in the office today and a collaborative treatment plan was made. The patient was offered a volar wrist splint and a splint in the position of safety. She has declined at this time. She was placed in a stacked splint on the little finger. She was instructed to perform daily dressing changes. Follow up will be in 3 weeks, or sooner if needed. X-rays of the left hand, obtained on 10/20/2023, revealed: No acute fracture or dislocation. Degenerative osteoarthritis PIP and DIP joints. There is no acute intracranial process seen Patient Instructions: Scribed for Isa Irving PA-C by Esperanza Pearce director medical writing, on 10/24/2023 at 8:14 am, EST. Coding Level of Care Code New Pt Level 4 (35591) Diagnoses Laceration of extensor muscle, fascia and tendon of left little finger at forearm level, initial encounter S56.428A Laceration of left hand, foreign body presence unspecified, initial encounter S61.412A Encounter type: initial encounter Foreign body presence: unspecified
== END 2023-10-24 09:54 | disposition home or self-care (01) ==
PROVIDERS: PCP Internal Medicine Geriatric Medicine; Visit Provider Physician Assistant
DX: S56.428A Laceration of extensor muscle, fascia and tendon of left little finger at forearm level, initial encounter (principal); S61.412A Laceration without foreign body of left hand, initial encounter; W10.8XXA Fall (on) (from) other stairs and steps, initial encounter
CPT/HCPCS: 99204

== ENCOUNTER 2023-11-14 07:46 | Outpatient (AMB) | payer OTHER, SELFPAY ==
--- NOTE | 2023-11-14 08:10 | MHC.OFFVIS ---
Intake Intake Visit Reasons: OV - left hand laceration, DOI 10/20/23 Intake Note: Noreen is a 78 year old right hand dominant female who presents today for a evaluation of her left hand laceration, DOI 10/21/23. Patient states she is doing well better than the last visit. Allergies penicillin G [Penicillin G] Allergy (Severe, Verified 11/14/23 08:11) ITCHY/RASH Sulfa (Sulfonamide Antibiotics) [Sulfa (Sulfonamides)] Allergy (Severe, Verified 11/14/23 08:11) ITCHY,RASH, rash trimethoprim [From Bactrim] Allergy (Severe, Verified 11/14/23 08:11) HIVES penicillin V Allergy (Unknown, Verified 11/14/23 08:11) rash sulfacetamide [From Sulfacet-R] Allergy (Unknown, Verified 11/14/23 08:11) unknown sulfur [From Sulfacet-R] Allergy (Unknown, Verified 11/14/23 08:11) unknown HPI OV - left hand laceration, DOI 10/20/23 HPI Details 78-year-old right hand dominant female, who is [place] speaking, presents in the office today for a wound check and follow up on a extensor muscle, fascia, and tendon laceration on the left little finger/hand, which occurred on 10/20/2023 status post a fall leaving her daughter?s house when she slipped and fell on the concrete. Patient has 2 lacerations to left hand. The largest is approximately 8 cm at the base of the thumb on the palmar surface. This is a linear but jagged laceration. 4 cm laceration around the radial side of the left 5th finger distal to the DIP joint. I last saw the patient in the office on 10/24/2023 where she was offered a volar wrist splint and a splint in the position of safety. She has declined at this time. She was placed in a stacked splint on the little finger. While in the office today she states she has been doing well since her last visit. [facility] Medical History Bleeding hemorrhoids Essential hypertension PVC (premature ventricular contraction) PAC (premature atrial contraction) SVT (supraventricular tachycardia) Chronic constipation High blood pressure Vertigo Dementia Arthritis Anxiety Surgical History No pertinent past surgical history Social History Alcohol intake: never Patient Tobacco Use Status: Never used Tobacco Review of Systems Const All systems reviewed & are unremarkable except as noted in HPI and below Physical Exam Const General: cooperative, healthy appearing and no acute distress Orientation/consciousness: patient oriented x3 Resp Effort & Inspection: normal respiratory effort and able to speak in complete sentences Cardio Rate: regular rate Peripheral pulses: Peripheral pulses 2+ throughout GI Palpation (GI): Soft to palpation Skin General skin exam: no rashes or lesions noted Lesions: no lesions Rashes: no rashes Neuro General: patient oriented x3 Extrem Other: Left hand: Little finger laceration nearly circumferential. Sutures are intact. No surrounding erythema or redness. Able to flex at the CMC and PIP. DIP is held in extension from splinting. Sensation is slightly diminished dip distally. Capillary refill is brisk. Laceration over the thenar eminence is clean, dry, and intact. Sutures are intact. No surrounding erythema or drainage. No signs of infection. Able to flex and extend at the CMC and IP joint. Sensation intact. Capillary refill is brisk. Assessment & Plan Assessment & Plan (1) Laceration of extensor muscle, fascia and tendon of left little finger at forearm level, initial encounter: Code(s): S56.428A - Laceration of extensor muscle, fascia and tendon of left little finger at forearm level, initial encounter (2) Laceration of hand, left: Code(s): S61.412A - Laceration without foreign body of left hand, initial encounter Qualifiers: Encounter type: initial encounter Foreign body presence: unspecified Qualified Code(s): S61.412A - Laceration without foreign body of left hand, initial encounter Plan Ms. Wing is an 78-year-old right hand dominant female, who is [place] speaking, presents in the office today for a wound check and follow up on a extensor muscle, fascia, and tendon laceration on the left little finger/hand, which occurred on 10/20/2023 status post a fall leaving her daughter?s house when she slipped and fell on the concrete. Patient has 2 lacerations to left hand. The largest is approximately 8 cm at the base of the thumb on the palmar surface. This is a linear but jagged laceration. 4 cm laceration around the radial side of the left 5th finger distal to the DIP joint. I last saw the patient in the office on 10/24/2023 where she was offered a volar wrist splint and a splint in the position of safety. She has declined at this time. She was placed in a stacked splint on the little finger. While in the office today she states she has been doing well since her last visit. The patient is going to continue to splint at the DIP joint for mallet finger deformity. Sutures were removed and steri-stripes were applied. She should keep the incision site clean, dry, and intact. She may wash her hands with soap and water. She may take Tylenol or Ibuprofen for pain. The patient did ask for Trazodone at today?s visit, but this was deferred to her PCP. I demonstrated exercises while in the office today to try and keep the remaining digits from stiffness. Follow up will be in 2 weeks for a wound check, or sooner if needed. Patient Instructions: Scribed for Isa Irving PA-C by Esperanza Pearce medical research scientist, on 11/14/2023 at 8:00 am, EST. Coding Level of Care Code Est Pt Level 3 (16236) Diagnoses Laceration of extensor muscle, fascia and tendon of left little finger at forearm level, initial encounter S56.428A Laceration of left hand, foreign body presence unspecified, initial encounter S61.412A Encounter type: initial encounter Foreign body presence: unspecified
== END 2023-11-14 09:11 | disposition home or self-care (01) ==
PROVIDERS: Visit Provider Physician Assistant
DX: S56.428A Laceration of extensor muscle, fascia and tendon of left little finger at forearm level, initial encounter (principal); S61.412A Laceration without foreign body of left hand, initial encounter
CPT/HCPCS: 99213

== ENCOUNTER → 2023-11-14 07:46 | Outpatient (BNVA) | payer OTHER, SELFPAY | PROVIDERS: Visit Provider Physician Assistant | DX: S56.42 Laceration of extensor muscle, fascia and tendon of other and unspecified finger at forearm level (principal); S61.412D Laceration without foreign body of left hand, subsequent encounter | CPT/HCPCS: 99212 ==

== ENCOUNTER 2023-11-23 04:09 | Emergency (ER) | payer OTHER, SELFPAY ==
[2023-11-23 04:12] VITALS: BP 152/81; PULSE 89; O2SAT 100
[2023-11-23 04:14] VITALS: BP 143/63; PULSE 87; RESP 18; TEMP 36.9; O2SAT 96; BMI 27.9
--- NOTE | 2023-11-23 06:20 | PC.NURSE ---
pt left the ER. seen leaving the ER by another patient. pt is not visualized in the WR at this time.
== END 2023-11-23 06:26 | disposition left against medical advice (07) ==
PROVIDERS: Emergency Provider Emergency Medicine; PCP Internal Medicine Geriatric Medicine
DX: I10 Essential (primary) hypertension (principal); F41.9 Anxiety disorder, unspecified; H93.11 Tinnitus, right ear
CPT/HCPCS: 99281

== ENCOUNTER 2023-11-28 08:14 | Outpatient (AMB) | payer OTHER, SELFPAY ==
[2023-11-28 08:31] VITALS: BMI 27.9
--- NOTE | 2023-11-28 08:31 | MHC.OFFVIS ---
Intake Vital Signs 11/28/23 08:31 Height 5 ft 8 in Weight 183 lb 6 oz BMI 27.9 Intake Visit Reasons: OV - left hand laceration, DOI 10/20/23 Intake Note: Noreen is a 78 year old right hand dominant female who presents today for a wound check of her left hand laceration, DOI 10/21/23. Patient states her pain is better and she has been doing her exercises so her ROM is much better. Housekeeping Coordinator Name: [id number] Allergies penicillin G [Penicillin G] Allergy (Severe, Verified 11/28/23 08:40) ITCHY/RASH Sulfa (Sulfonamide Antibiotics) [Sulfa (Sulfonamides)] Allergy (Severe, Verified 11/28/23 08:40) ITCHY,RASH, rash trimethoprim [From Bactrim] Allergy (Severe, Verified 11/28/23 08:40) HIVES penicillin V Allergy (Unknown, Verified 11/28/23 08:40) rash sulfacetamide [From Sulfacet-R] Allergy (Unknown, Verified 11/28/23 08:40) unknown sulfur [From Sulfacet-R] Allergy (Unknown, Verified 11/28/23 08:40) unknown HPI OV - left hand laceration, DOI 10/20/23 HPI Details 78-year-old right hand dominant female, who is [place] speaking, presents in the office today for a wound check and follow up on a extensor muscle, fascia, and tendon laceration on the left little finger/hand, which occurred on 10/20/2023 status post a fall leaving her daughter?s house when she slipped and fell on the concrete. I last saw the patient in the office on 11/14/2023 where she was instructed to continue to wear the splint at the DIP joint for mallet finger deformity. She was demonstrated exercises to work on with the remaining digits to help with stiffness. While in the office the patient reports her pain is better. She confirms working on the ROM exercises, therefore her ROM is improved. [facility] Medical History Bleeding hemorrhoids Essential hypertension PVC (premature ventricular contraction) PAC (premature atrial contraction) SVT (supraventricular tachycardia) Chronic constipation High blood pressure Vertigo Dementia Arthritis Anxiety Surgical History No pertinent past surgical history Social History Alcohol intake: never Patient Tobacco Use Status: Never used Tobacco Review of Systems Const All systems reviewed & are unremarkable except as noted in HPI and below Physical Exam Vital Signs: BMI result Body Mass Index 27.9 Const General: cooperative, healthy appearing and no acute distress Orientation/consciousness: patient oriented x3 Resp Effort & Inspection: normal respiratory effort and able to speak in complete sentences Cardio Rate: regular rate Peripheral pulses: Peripheral pulses 2+ throughout GI Palpation (GI): Soft to palpation Skin General skin exam: no rashes or lesions noted Lesions: no lesions Rashes: no rashes Neuro General: patient oriented x3 Extrem Other: Left hand: Little finger laceration nearly circumferential. One suture remains. No surrounding erythema or redness. Healed. Able to flex at the CMC and PIP. DIP is held in extension from splinting. Sensation is slightly diminished dip distally. Capillary refill is brisk. Laceration over the thenar eminence is clean, dry, and intact. Healed. No surrounding erythema or drainage. No signs of infection. Able to flex and extend at the CMC and IP joint. Sensation intact. Capillary refill is brisk. Assessment & Plan Assessment & Plan (1) Laceration of extensor muscle, fascia and tendon of left little finger at forearm level, initial encounter: Code(s): S56.428A - Laceration of extensor muscle, fascia and tendon of left little finger at forearm level, initial encounter (2) Laceration of hand, left: Code(s): S61.412A - Laceration without foreign body of left hand, initial encounter Qualifiers: Encounter type: initial encounter Foreign body presence: unspecified Qualified Code(s): S61.412A - Laceration without foreign body of left hand, initial encounter Plan Ms. Wing is an 78-year-old right hand dominant female, who is [place] speaking, presents in the office today for a wound check and follow up on a extensor muscle, fascia, and tendon laceration on the left little finger/hand, which occurred on 10/20/2023 status post a fall leaving her daughter?s house when she slipped and fell on the concrete. I last saw the patient in the office on 11/14/2023 where she was instructed to continue to wear the splint at the DIP joint for mallet finger deformity. She was demonstrated exercises to work on with the remaining digits to help with stiffness. While in the office the patient reports her pain is better. She confirms working on the ROM exercises, therefore her ROM is improved. The patient presented today not wearing the stack splint. At this time she is happy with where her progress is at. She will continue to work on slight ROM, she is only lacking about 1 cm from making a closed fist. Her laceration sites are completed healed with no signs of infection. There is no orthopedic intervention needed at this time. She did have one suture that was till in place and this was removed while in the office today. Follow up will be PRN, or sooner if needed. Patient Instructions: Scribed for Isa Irving PA-C by Esperanza Pearce nuclear medical tech, on 11/28/2023 at 8:26 am, EST. Coding Level of Care Code Est Pt Level 3 (34902) Diagnoses Laceration of extensor muscle, fascia and tendon of left little finger at forearm level, initial encounter S56.428A Laceration of left hand, foreign body presence unspecified, initial encounter S61.412A Encounter type: initial encounter Foreign body presence: unspecified
== END 2023-11-28 09:33 | disposition home or self-care (01) ==
PROVIDERS: Visit Provider Physician Assistant
DX: S56.42 Laceration of extensor muscle, fascia and tendon of other and unspecified finger at forearm level (principal); S61.412D Laceration without foreign body of left hand, subsequent encounter
CPT/HCPCS: 99213

== ENCOUNTER → 2023-11-28 08:14 | Outpatient (BNVA) | payer OTHER, SELFPAY | PROVIDERS: Visit Provider Physician Assistant | DX: S56.42 Laceration of extensor muscle, fascia and tendon of other and unspecified finger at forearm level (principal); S61.412D Laceration without foreign body of left hand, subsequent encounter | CPT/HCPCS: 99212 ==

== ENCOUNTER 2023-11-29 08:52 | Emergency (ER) | payer OTHER, SELFPAY ==
--- NOTE | ~2023-11-29 | CT_ITS ---
EXAMINATION: CT CERVICAL SPINE without contrast CLINICAL INFORMATION: Reason for Exam fall, hit head COMPARISON: 04/04/2023 TECHNIQUE: Computed axial sagittal and coronal images acquired using department's standard protocol. This CT examination was performed using dose optimization techniques as appropriate, variously including the following: *Automated exposure control *Adjustment of mA and/or kV according to patient size (this includes techniques or standardized protocols for targeted exams where dose is matched to indication/reason for exam; i.e. extremities or head) *Use of iterative reconstruction technique CONTRAST: None DLP: 387 mGy-cm FINDINGS: SKULL BASE: Visualized structures at skull base are normal, Included facial sinuses are clear, CERVICAL VERTEBRAE: Seven cervical vertebrae identified maintaining proper height and alignment, there is a small bony fragment near the tip of the posterior spinous process of C6, possibly a shovel fracture versus incompletely fused osteophytes. DISCS: Loss of disc height and developed osteophyte from the edges of endplates especially at C5-C6 and C6-C7 suggests underlying degenerative disc disease. C1-C2: There is no CT evidence of significant osseous narrowing of the central canal or neural foramen. C2-C3: There is no CT evidence of significant osseous narrowing of the central canal or neural foramen. C3-C4: There is no CT evidence of significant osseous narrowing of the central canal or neural foramen. C4-C5: There is no CT evidence of significant osseous narrowing of the central canal or neural foramen. C5-C6: Developed osteophyte from the edges of endplates encroaching on the neural foramen bilaterally, there is probably bilateral foraminal stenosis, osteophyte also impinging on the central canal spinal cord at this level. C6-C7: There is no CT evidence of significant osseous narrowing of the central canal or neural foramen. C7-T1: There is no CT evidence of significant osseous narrowing of the central canal or neural foramen. PARAVERTEBRAL SOFT TISSUE: Paravertebral soft tissues unremarkable. CT/CT cervical spine wo IV con IMPRESSION: 1. Small bony fragment near the tip of the posterior spinous process of C6, possibly shovel fracture versus incompletely fused osteophytes.. Correlate with area of tenderness, MRI could be utilized for further investigation if clinically indicated. 2. Loss of disc height and developed osteophyte from the edges of endplates especially at C5-C6 and C6-C7 suggests underlying degenerative disc disease. 3. Developed osteophyte from the edges of endplates encroaching on the neural foramen bilaterally, osteophyte also impinging on the central canal spinal cord at this level. aa
--- NOTE | ~2023-11-29 | XR_ITS ---
EXAMINATION: XR HAND, LEFT CLINICAL INFORMATION: Fall pain COMPARISON: None available. TECHNIQUE: PA, lateral, and oblique views of the left hand. FINDINGS: There is likely an avulsion fracture of the posterior base of the distal phalanx fifth finger. All other fingers are intact. 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 XR/XR hand LT 2V IMPRESSION: 1. Avulsion fracture of the posterior base of the distal phalanx fifth finger. 2. No other fractures.
--- NOTE | ~2023-11-29 | CT_ITS ---
CT facial bones wo IV con, CT head/brain wo IV con CLINICAL INFORMATION: Reason for Exam fall, pain right face COMPARISON: No prior CT scan available for comparison. TECHNIQUE: Department standard protocol. This CT examination was performed using dose optimization techniques as appropriate, variously including the following: *Automated exposure control *Adjustment of mA and/or kV according to patient size (this includes techniques or standardized protocols for targeted exams where dose is matched to indication/reason for exam; i.e. extremities or head) *Use of iterative reconstruction technique DLP: 1441 mGy-cm FINDINGS: CEREBRAL HEMISPHERES: There is no evidence of intra-axial or extra-axial mass, hemorrhage or acute infarct. BRAIN PARENCHYMA: Normal lemons-white matter differentiation. SUBDURAL SPACE: No bleed. BASAL GANGLIA AND PINEAL GLAND: Unremarkable VENTRICLES: Symmetric and normal in size. CEREBELLUM AND BRAINSTEM: No space-occupying mass, hemorrhage or acute infarct. CEREBELLOPONTINE ANGLES: No lesion found. ORBITS: No intraorbital mass. VESSELS: Unremarkable SKULL BASE: Unremarkable INCLUDED SINUSES AT SKULL BASE: Clear SKULL AND SKIN: No fracture or bone lesion found. EXAMINATION: CT FACIAL BONES CLINICAL INFORMATION: Fall, pain. TECHNIQUE: Computed axial with reformatted sagittal and coronal images provided through the facial bones. This CT examination was performed using dose optimization techniques as appropriate, variously including the following: *Automated exposure control *Adjustment of mA and/or kV according to patient size (this includes techniques or standardized protocols for targeted exams where dose is matched to indication/reason for exam; i.e. extremities or head) *Use of iterative reconstruction technique FINDINGS : SKULL BASE: Included structures at skull base are normal. BONES: Skull base, orbital bones, there are probably old nondisplaced right and left nasal bone fractures, no associated soft tissue swelling, nasal spine is intact., maxillary bones, mandibles, zygomatic arches, and included cervical vertebrae are normal. ORBITS: There is a preorbital preseptal soft tissue swelling anterior to the right globe, no intraocular swelling or fluid. Both globes, optic nerves and ocular muscles are symmetric. SALIVARY GLANDS: Unremarkable SINUSES: Partial opacification of a few of the ethmoidal air cells, maxillary sinuses, sphenoidal air cells and frontal air cells are clear. CT/CT facial bones wo IV con IMPRESSION: 1. Preorbital preseptal soft tissue swelling anterior to the right globe, no intraocular swelling or fluid. 2. Probably old nondisplaced right and left nasal bone fractures, no associated soft tissue swelling. 3. No CT evidence of intracranial space-occupying mass, bleed or infarct. 4. Bony calvarium is intact.
[2023-11-29 08:59] VITALS: BP 144/86; BP 152/91; PULSE 78; PULSE 83; RESP 18; TEMP 36.9; O2SAT 97; O2SAT 98; BMI 32.9
--- NOTE | 2023-11-29 09:04 | ED_ITS ---
HPI - Fall General Chief Complaint: Fall Stated Complaint: FALL WITH HEAD STRIKE - THINNERS + HEMATOMA Time Seen by Provider: 11/29/23 08:54 Source: patient and EMS Mode of arrival: EMS Limitations: no limitations History of Present Illness HPI Narrative: 78yo female with history of anxiety here with complaints of slip and fall on the ground with head strike and no LOC. NO AC therapy use. Also c/o pain to left hand and reports history of extensor muscle/fascia/tendon injury or left hand and 5th digit (DOI 10/20/23) and believes she may have hit it on the ground. Denies neck pain, chest pain, abdominal pain, vomiting, vision changes. Related Data Home Medications Medication Instructions Recorded Confirmed alprazolam 0.5 mg tablet 0.5 mg PO TID PRN Anxiety 08/09/20 09/22/23 aripiprazole 2 mg tablet 2 mg PO BEDTIME 08/09/20 09/22/23 cholecalciferol (vitamin D3) 25 25 mcg PO BID 08/09/20 09/22/23 mcg (1,000 unit) tablet hydroxyzine HCl 50 mg tablet 50 mg PO TID PRN Anxiety 08/09/20 09/22/23 linaclotide 145 mcg capsule 145 mcg PO DAILY 08/09/20 09/22/23 mirtazapine 45 mg tablet 45 mg PO BEDTIME 08/09/20 09/22/23 multivitamin 1 cap PO DAILY 08/09/20 09/22/23 omeprazole 20 mg tablet,delayed 20 mg PO DAILY 08/09/20 09/22/23 release sertraline 50 mg tablet 50 mg PO BEDTIME 08/09/20 09/22/23 Previous Rx's Medication Instructions Recorded escitalopram oxalate 10 mg tablet 10 mg PO DAILY #30 tabs 09/06/20 acetaminophen 325 mg capsule 325 mg PO QID PRN fever or pain 09/16/20 #30 caps aspirin 81 mg tablet,delayed 81 mg PO BEDTIME #90 tabs 09/28/20 release metoprolol succinate 50 mg 50 mg PO DAILY #90 tabs 09/28/20 tablet,extended release 24 hr menthol 0.44 %-zinc oxide 20.6 % 1 appl topical QID PRN skin 12/13/20 topical ointment (Calmoseptine) irritation #113 grams magnesium citrate 150 ml PO DAILY PRN constipation 12/14/20 #296 mL diphenhydramine HCl 25 mg capsule 25 mg PO BEDTIME insomnia #7 caps 12/25/20 (Benadryl) melatonin 10 mg tablet,extended 10 mg PO .nightly #5 tabs 01/07/21 release cefdinir 300 mg capsule 300 mg PO BID Otitis media 10 days 04/14/21 #20 caps ondansetron HCl 4 mg tablet 4 mg PO Q8H PRN nausea and 04/14/21 (Zofran) vomiting #14 tabs metoprolol succinate 50 mg 50 mg PO DAILY #14 tabs 05/22/21 tablet,extended release 24 hr ciprofloxacin 0.3 %-dexamethasone 4 drp otic (ears) BID 7 days 05/26/21 0.1 % ear drops,suspension (Ciprodex) polyethylene glycol 3350 17 17 g PO DAILY PRN constipation 07/31/21 gram/dose oral powder (Miralax) #238 grams hydrocortisone acetate 25 mg 25 mg TX BID #12 ea 08/01/21 rectal suppository (Anucort-HC) cefuroxime axetil 500 mg tablet 500 mg PO BID 7 days #14 tabs 09/01/21 meclizine 25 mg tablet 25 mg PO TID PRN dizziness #10 tabs 09/01/21 zolpidem 5 mg tablet (Ambien) 5 mg PO BEDTIME PRN sleep #2 tabs 10/29/21 zolpidem 5 mg tablet (Ambien) 5 mg PO BEDTIME PRN sleep #2 tabs 10/29/21 levofloxacin 500 mg tablet 500 mg PO DAILY 7 days #7 tabs 07/23/22 levofloxacin 500 mg tablet 500 mg PO DAILY #6 tabs 08/25/22 ofloxacin 0.3 % ear drops 10 drp otic (ears) DAILY 7 days #5 08/25/22 mL hydrocortisone 2.5 % topical cream 1 appl TX BEDTIME PRN hemorrhoids 09/20/22 with perineal applicator #30 grams docusate sodium 100 mg capsule 100 mg PO BID PRN Constipation #14 12/06/22 (Colace) caps phenylephrine 0.25 %-mineral oil 1 appl TX BID PRN hemorrhoids #56 12/06/22 14 %-petrolatm 74.9 % rectal grams ointment (Hemorrhoidal(phenyleph-min oil-petrolat)) polyethylene glycol 3350 17 17 g PO BID #119 grams 12/06/22 gram/dose oral powder (Miralax) cefuroxime axetil 500 mg tablet 500 mg PO BID 10 days #20 tabs 12/16/22 alprazolam 0.25 mg tablet 0.25 mg PO QID #7 tabs 01/04/23 ofloxacin 0.3 % ear drops 5 drp otic (ear) left BID 7 days 01/06/23 #5 mL alprazolam 0.25 mg tablet 0.25 mg PO TID PRN anxiety #7 tabs 01/11/23 alprazolam 0.25 mg tablet 0.25 mg PO TID PRN anxiety #3 tabs 02/02/23 alprazolam 0.5 mg tablet (Xanax) 0.5 mg PO BEDTIME PRN anxiety #7 04/20/23 tabs metoprolol succinate 50 mg 50 mg PO DAILY #7 tabs 05/18/23 tablet,extended release 24 hr lisinopril 40 mg tablet 40 mg PO QPM #90 tabs 05/22/23 ondansetron 4 mg disintegrating 4 mg PO Q8H PRN nausea and 07/06/23 tablet vomiting #10 tabs hydrocortisone 1 % topical cream 1 appl topical BID PRN rash #28.4 08/03/23 grams phenylephrine 0.25 %-mineral oil 1 appl TX BID PRN hemorrhoids #57 08/17/23 14 %-petrolatm 74.9 % rectal grams ointment (Preparation H) polyethylene glycol 3350 17 17 g PO BID #119 grams 08/17/23 gram/dose oral powder (Miralax) diphenhydramine HCl 25 mg tablet 25 mg PO TID PRN Pruritus #20 tabs 08/25/23 (Benadryl Allergy) phenylephrine 0.25 %-cocoa butter 1 supp TX BID #24 ea 08/25/23 88.44 % rectal suppository (Preparation H(phenyleph,cocoa buttr)) phenylephrine 0.25 %-mineral oil 1 appl TX BID #28 grams 08/25/23 14 %-petrolatm 74.9 % rectal ointment (Preparation H) fluticasone propionate 50 2 spray intranasal DAILY #16 grams 09/16/23 mcg/actuation nasal spray,suspension (Flonase Allergy Relief) loratadine 10 mg tablet 10 mg PO DAILY #30 tabs 09/16/23 menthol 0.44 %-zinc oxide 20.6 % 1 appl topical QID PRN skin 09/22/23 topical ointment (Calmoseptine) irritation #113 grams cephalexin 500 mg capsule 500 mg PO TID #15 caps 10/20/23 nitrofurantoin 100 mg PO Q12H 5 days #10 caps 10/20/23 monohydrate/macrocrystals 100 mg capsule (Macrobid) Allergies Allergy/AdvReac Type Severity Reaction Status Date / Time penicillin G [Penicillin G] Allergy Severe ITCHY/RASH Verified 11/28/23 08:40 Sulfa (Sulfonamide Allergy Severe ITCHY,RASH, Verified 11/28/23 08:40 Antibiotics) rash [Sulfa (Sulfonamides)] trimethoprim [From Bactrim] Allergy Severe HIVES Verified 11/28/23 08:40 penicillin V Allergy Unknown rash Verified 11/28/23 08:40 sulfacetamide Allergy Unknown unknown Verified 11/28/23 08:40 [From Sulfacet-R] sulfur [From Sulfacet-R] Allergy Unknown unknown Verified 11/28/23 08:40 Review of Systems 2 Review of Systems: Yes all other systems are reviewed and are negative Constitutional: Constitutional: Reports no additional constitutional complaints, Denies body ache(s), Denies chills, Denies fever(s), Reports headache(s) and Denies weakness Eyes: Eyes: Reports no additional eye complaints and Denies change in vision ENT: Reports system reviewed and no additional complaints, except as documented, Denies dizziness, Reports headache(s), Denies nasal congestion, Denies nasal discharge and Denies neck pain Cardiovascular: Cardiovascular: Reports no additional cardiovascular complaints, Denies chest pain, Denies leg edema and Denies dyspnea Respiratory: Respiratory: Reports no additional respiratory complaints, Denies cough and Denies dyspnea Gastrointestinal: Gastrointestinal: Reports no additional gastrointestinal complaints, Denies abdominal pain, Denies diarrhea, Denies nausea and Denies vomiting Genitourinary: Genitourinary: Reports no additional female genitourinary complaints and Denies urinary incontinence Musculoskeletal: Musculoskeletal: Reports no additional musculoskeletal complaints, Denies back pain, Reports arthralgias, Denies joint swelling, Denies neck pain, Denies numbness and Denies tingling Integumentary/Breasts: Skin/Breast: Reports system reviewed and no additional complaints, except as docu and Denies rash Neurologic: Reports system reviewed and no additional complaints, except as documented, Denies Abnormal speech present, Denies dizziness, Reports headache(s), Denies numbness, Denies tingling and Denies weakness PMFSH Past Medical History Attestation statement: The following information was validated with the patient. Source: old records reviewed and nursing notes reviewed Onset Date is defined in the Problem List Problems that require an onset date and time if occurred within 24 hrs of arrival to the ED Aortic Dissection and Rupture; Neurologic impairment; Cardiopulmonary Arrest; Endotracheal Intubation; Insertion or Replacement of Mechanical Circulatory Assist Device Medical History Bleeding hemorrhoids Essential hypertension PVC (premature ventricular contraction) PAC (premature atrial contraction) SVT (supraventricular tachycardia) Chronic constipation High blood pressure Vertigo Dementia Arthritis Anxiety Surgical History No pertinent past surgical history Social History Social History Alcohol intake: never Patient Tobacco Use Status: Never used Tobacco Smoked in Last 30 Days: No Use of substances other than those prescribed or required for medical reasons: No Advance Directives: No Advance Directives Information Provided: No Physical Exam 2 Vital Signs: Vital Signs: Last Vital Signs Temp 98.4 F 11/29/23 08:59 Pulse 65 11/29/23 11:09 Resp 18 11/29/23 11:09 BP 132/75 11/29/23 11:09 Pulse Ox 97 11/29/23 11:09 O2 Del Method Room Air 11/29/23 11:09 BMI result Body Mass Index 32.9 Const: General: cooperative, healthy appearing, comfortable and no acute distress Orientation/consciousness: patient oriented x3 Limitations: no limitations HEENT: Head: Yes normal to inspection, No Gomes's sign and Yes raccoon eyes Head images: 1. +hematoma Ears: hearing grossly normal bilaterally and TM's normal bilaterally General nose exam: Normal external nose present Face and sinus: Yes normal facial exam Mouth: Normal oral and palatal mucosa present Throat: Yes posterior oropharynx normal, Yes tonsils normal and Yes uvula midline Eyes: General: appearance normal, both eyes and all related structures P upils: Equal, round and reactive pupils present Neck: Other: No cervical midline tenderness, step-offs or deformities Neck: Yes normal visual inspection and Yes full ROM Chest: Chest palpation & inspection: normal inspection of the chest Resp: Effort & Inspection: normal respiratory effort Auscultation: clear to auscultation bilaterally Cardio: Rate: regular rate Rhythm: regular rhythm Peripheral pulses: P eripheral pulses 2+ throughout GI: Inspection: Yes normal to inspection Palpation (GI): Soft to palpation and nontender Auscultation: normal bowel sounds Back/Spine/Pelvis: Thoracic/Lumbar Spine: thoracic and lumbar spine normal to inspection Skin: General skin exam: no rashes or lesions noted Neuro: General: patient oriented x3, moves all extremities, no focal motor deficits and normal sensation to monofilament Cranial nerves: Yes Equal, round and reactive pupils present, Yes Bilaterally intact EOM present, Yes Normal facial strength present and Yes Midline tongue present Cognition (Neuro): normal cognition Speech: No Abnormal speech present Gait exam (Neuro): Normal gait present Motor exam (neuro): 5/5 motor strength present throughout Sensory Exam: Normal double simultaneous stimulation for sensation Extrem: Other: To the left thenar there is a healing incision, mild TTP. No swelling or ecchymosis General: Yes normal to inspection Course Course Course Narrative: 1120 Ct spine shows 1. Small bony fragment near the tip of the posterior spinous process of C6, possibly shovel fracture versus incompletely fused osteophytes.. Correlate with area of tenderness, MRI could be utilized for further investigation if clinically indicated. Doubt fracture as patient has no palpable tenderness on palpation, step offs or deformities. Normal neuro exam Call out radiologist to discuss findings Reevaluation(s) Reevaluation #1: 1121-Spoke to Dr Machado about CT findings. He tells me these findings were seen on the cervical spine CT scan from 04/04/23 and it is not a new finding. So low suspicion for acute fracture requiring urgent MRI. Medications Administered Discontinued Medications Generic Name Dose Route Start Last Admin Trade Name Freq PRN Reason Stop Dose Admin Acetaminophen 975 mg 11/29/23 09:01 11/29/23 09:10 Acetaminophen 325 Mg Tablet PO 11/29/23 09:02 975 mg ONCE ONE Administration Medical Decision Making Medical Decision Making MDM Narrative: 78yo female with history of anxiety here with complaints of slip and fall on the ground with head strike and no LOC. NO AC therapy use. Also c/o pain to left hand and reports history of extensor muscle/fascia/tendon injury or left hand and 5th digit (DOI 10/20/23) and believes she may have hit it on the ground. Denies neck pain, chest pain, abdominal pain, vomiting, vision changes.? +hematoma right periorbital area, TTP to left thenar around healing incision site. Normal neuro with no focal deficits. Will need CT head/cervical/facial bones, x-ray left hand Differential Diagnosis Differential Diagnoses: The differential diagnosis associated with the presentation includes contusion, skull fracture, ICH, cervical strain, cervical fracture Admission/Observation Consideration of admission/observation: Escalation of care including admission/observation considered CT finding is not an acute finding. It was seen on previous imaging from 04/04/2023. I have very low suspicion for acute fracture requiring urgent MRI imaging. Consult Healthcare Provider Management of the patient was discussed with: Cryptologic Supervisor Radiology Independent Interpretation I performed an independent interpretation of an: Plain X-Ray and CT Scan Interpretation: I independetely reviewed the x-ray and CT facial bones/cervical spine/head and agree with the rad report Radiology Impression Discussion of test interpretation with radiology: I have reviewed the radiologist's reading. Radiologist Impression: [place] [id number] XRay Report Signed Patient: Noreen Wing MR#: [id number] : 1945 Acct:[id number] Age/Sex: 78 / F ADM Date: 11/29/23 Loc: HO.ED Attending Dr: Ordering Physician: Dominique Sánchez NP Date of Service: 11/29/23 Procedure(s): XR hand LT 2V Accession Number(s): [id number] cc: Wale,Nitin PIKE; Dominique Sánchez NP~ EXAMINATION: XR HAND, LEFT CLINICAL INFORMATION: Fall pain COMPARISON: None available. TECHNIQUE: PA, lateral, and oblique views of the left hand. FINDINGS: There is likely an avulsion fracture of the posterior base of the distal phalanx fifth finger. All other fingers are intact. 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 XR/XR hand LT 2V IMPRESSION: 1. Avulsion fracture of the posterior base of the distal phalanx fifth finger. 2. No other fractures. [address] [address] [address] Scan Report Signed Patient: Noreen Wing MR#: [id number] : 1945 Acct:[id number] Age/Sex: 78 / F ADM Date: 11/29/23 Loc: HO.ED Attending Dr: Ordering Physician: Dominique Sánchez NP Date of Service: 11/29/23 Procedure(s): CT head/brain wo IV con Accession Number(s): [id number] cc: Name,Nitin PIKE; Dominique Sánchez NP~ CT facial bones wo IV con, CT head/brain wo IV con CLINICAL INFORMATION: Reason for Exam fall, pain right face COMPARISON: No prior CT scan available for comparison. TECHNIQUE: Department standard protocol. This CT examination was performed using dose optimization techniques as appropriate, variously including the following: *Automated exposure control *Adjustment of mA and/or kV according to patient size (this includes techniques or standardized protocols for targeted exams where dose is matched to indication/reason for exam; i.e. extremities or head) *Use of iterative reconstruction technique DLP: 1441 mGy-cm FINDINGS: CEREBRAL HEMISPHERES: There is no evidence of intra-axial or extra-axial mass, hemorrhage or acute infarct. BRAIN PARENCHYMA: Normal lemons-white matter differentiation. SUBDURAL SPACE: No bleed. BASAL GANGLIA AND PINEAL GLAND: Unremarkable VENTRICLES: Symmetric and normal in size. CEREBELLUM AND BRAINSTEM: No space-occupying mass, hemorrhage or acute infarct. CEREBELLOPONTINE ANGLES: No lesion found. ORBITS: No intraorbital mass. VESSELS: Unremarkable SKULL BASE: Unremarkable INCLUDED SINUSES AT SKULL BASE: Clear SKULL AND SKIN: No fracture or bone lesion found. EXAMINATION: CT FACIAL BONES CLINICAL INFORMATION: Fall, pain. TECHNIQUE: Computed axial with reformatted sagittal and coronal images provided through the facial bones. This CT examination was performed using dose optimization techniques as appropriate, variously including the following: *Automated exposure control *Adjustment of mA and/or kV according to patient size (this includes techniques or standardized protocols for targeted exams where dose is matched to indication/reason for exam; i.e. extremities or head) *Use of iterative reconstruction technique FINDINGS : SKULL BASE: Included structures at skull base are normal. BONES: Skull base, orbital bones, there are probably old nondisplaced right and left nasal bone fractures, no associated soft tissue swelling, nasal spine is intact., maxillary bones, mandibles, zygomatic arches, and included cervical vertebrae are normal. ORBITS: There is a preorbital preseptal soft tissue swelling anterior to the right globe, no intraocular swelling or fluid. Both globes, optic nerves and ocular muscles are symmetric. SALIVARY GLANDS: Unremarkable SINUSES: Partial opacification of a few of the ethmoidal air cells, maxillary sinuses, sphenoidal air cells and frontal air cells are clear. CT/CT head/brain wo IV con IMPRESSION: 1. Preorbital preseptal soft tissue swelling anterior to the right globe, no intraocular swelling or fluid. 2. Probably old nondisplaced right and left nasal bone fractures, no associated soft tissue swelling. 3. No CT evidence of intracranial space-occupying mass, bleed or infarct. 4. Bony calvarium is intact. Diagnostics Reports Noreen Wing 78 F 1945 Allergy/Adv: penicillin G, Sulfa (Sulfonamide Antibiotics), trimethoprim, penicillin V, sulfacetamide, sulfur [place] [address] CT Scan Report Signed Patient: Noreen Wing MR#: [id number] : 1945 Acct:[id number] Age/Sex: 78 / F ADM Date: 11/29/23 Loc: HO.ED Attending Dr: Ordering Physician: Dominique Sánchez NP Date of Service: 11/29/23 Procedure(s): CT cervical spine wo IV con Accession Number(s): [id number] cc: Wale,Nitin PIKE; Dominique Sánchez NP~ EXAMINATION: CT CERVICAL SPINE without contrast CLINICAL INFORMATION: Reason for Exam fall, hit head COMPARISON: 04/04/2023 TECHNIQUE: Computed axial sagittal and coronal images acquired using department's standard protocol. This CT examination was performed using dose optimization techniques as appropriate, variously including the following: *Automated exposure control *Adjustment of mA and/or kV according to patient size (this includes techniques or standardized protocols for targeted exams where dose is matched to indication/reason for exam; i.e. extremities or head) *Use of iterative reconstruction technique CONTRAST: None DLP: 387 mGy-cm FINDINGS: SKULL BASE: Visualized structures at skull base are normal, Included facial sinuses are clear, CERVICAL VERTEBRAE: Seven cervical vertebrae identified maintaining proper height and alignment, there is a small bony fragment near the tip of the posterior spinous process of C6, possibly a shovel fracture versus incompletely fused osteophytes. DISCS: Loss of disc height and developed osteophyte from the edges of endplates especially at C5-C6 and C6-C7 suggests underlying degenerative disc disease. C1- C2: There is no CT evidence of significant osseous narrowing of the central canal or neural foramen. C2-C3: There is no CT evidence of significant osseous narrowing of the central canal or neural foramen. C3-C4: There is no CT evidence of significant osseous narrowing of the central canal or neural foramen. C4-C5: There is no CT evidence of significant osseous narrowing of the central canal or neural foramen. C5-C6: Developed osteophyte from the edges of endplates encroaching on the neural foramen bilaterally, there is probably bilateral foraminal stenosis, osteophyte also impinging on the central canal spinal cord at this level. C6-C7: There is no CT evidence of significant osseous narrowing of the central canal or neural foramen. C7-T1: There is no CT evidence of significant osseous narrowing of the central canal or neural foramen. PARAVERTEBRAL SOFT TISSUE: Paravertebral soft tissues unremarkable. CT/CT cervical spine wo IV con IMPRESSION: 1. Small bony fragment near the tip of the posterior spinous process of C6, possibly shovel fracture versus incompletely fused osteophytes.. Correlate with area of tenderness, MRI could be utilized for further investigation if clinically indicated. 2. Loss of disc height and developed osteophyte from the edges of endplates especially at C5-C6 and C6-C7 suggests underlying degenerative disc disease. 3. Developed osteophyte from the edges of endplates encroaching on the neural foramen bilaterally, osteophyte also impinging on the central canal spinal cord at this level. aa Independent Historian Clinical information obtained from an independent historian. History obtained from or confirmed by: EMS Tests considered The following testing was considered but not selected: No need for emergent MRI-doubt acute fracture, normal neuro exam Prescription Management I considered prescription management with: Pain Medication Discharge Plan Discharge Clinical Impression: Contusion of head, Finger fracture, left Patient Disposition: Home, Self-Care Instructions: Finger Fracture (ED), Facial Contusion (ED) Additional Instructions: Apply ice to the area Tylenol for pain as needed Follow-up with orthopedics as discussed Prescriptions: No Action escitalopram oxalate 10 mg tablet 10 mg PO DAILY Qty: 30 1RF metoprolol succinate 50 mg tablet extended release 24 hr 50 mg PO DAILY Qty: 90 2RF aspirin 81 mg tablet,delayed release (DR/EC) 81 mg PO BEDTIME Qty: 90 2RF polyethylene glycol 3350 [Miralax] 17 gram/dose powder 17 g PO DAILY PRN (Reason: constipation) Qty: 238 0RF lisinopril 40 mg tablet 40 mg PO QPM Qty: 90 0RF Rx Instructions: Please call and schedule cardiology appt acetaminophen 325 mg capsule 325 mg PO QID PRN (Reason: fever or pain) Qty: 30 0RF melatonin 10 mg tablet extended release 10 mg PO .nightly Qty: 5 0RF metoprolol succinate 50 mg tablet extended release 24 hr 50 mg PO DAILY Qty: 14 0RF ciprofloxacin-dexamethasone [Ciprodex] 0.3-0.1 % drops,suspension 4 drp otic (ears) BID 7 Days 0RF alprazolam 0.5 mg Tablet 0.5 mg PO TID PRN (Reason: Anxiety) hydroxyzine HCl 50 mg Tablet 50 mg PO TID PRN (Reason: Anxiety) mirtazapine 45 mg Tablet 45 mg PO BEDTIME multivitamin Capsule 1 cap PO DAILY sertraline 50 mg Tablet 50 mg PO BEDTIME aripiprazole 2 mg Tablet 2 mg PO BEDTIME cholecalciferol (vitamin D3) 25 mcg (1,000 unit) Tablet 25 mcg PO BID omeprazole 20 mg Tablet,Delayed Release (Dr/Ec) 20 mg PO DAILY linaclotide 145 mcg Capsule 145 mcg PO DAILY diphenhydramine HCl [Benadryl] 25 mg capsule 25 mg PO BEDTIME Qty: 7 0RF cefdinir 300 mg capsule 300 mg PO BID 10 Days Qty: 20 0RF ondansetron HCl [Zofran] 4 mg tablet 4 mg PO Q8H PRN (Reason: nausea and vomiting) Qty: 14 0RF cefuroxime axetil 500 mg tablet 500 mg PO BID 7 Days Qty: 14 0RF meclizine 25 mg tablet 25 mg PO TID PRN (Reason: dizziness) Qty: 10 0RF levofloxacin 500 mg tablet 500 mg PO DAILY 7 Days Qty: 7 0RF cefuroxime axetil 500 mg tablet 500 mg PO BID 10 Days Qty: 20 0RF alprazolam 0.25 mg tablet 0.25 mg PO QID Qty: 7 0RF levofloxacin 500 mg tablet 500 mg PO DAILY Qty: 6 0RF Rx Instructions: start on 08/26 ofloxacin 0.3 % drops 10 drp otic (ears) DAILY 7 Days Qty: 5 0RF Rx Instructions: can substitute eye drops if necessary hydrocortisone 2.5 % cream with perineal applicator 1 appl TX BEDTIME PRN (Reason: hemorrhoids) Qty: 30 0RF Hemorrhoidal(PE-min oil-emma) 0.25-14-74.9 % ointment 1 appl TX BID PRN (Reason: hemorrhoids) Qty: 56 0RF polyethylene glycol 3350 [Miralax] 17 gram/dose powder 17 g PO BID Qty: 119 0RF docusate sodium [Colace] 100 mg capsule 100 mg PO BID PRN (Reason: Constipation) Qty: 14 0RF ofloxacin 0.3 % drops 5 drp otic (ear) left BID 7 Days Qty: 5 0RF alprazolam 0.25 mg tablet 0.25 mg PO TID PRN (Reason: anxiety) Qty: 7 0RF alprazolam [Xanax] 0.5 mg tablet 0.5 mg PO BEDTIME PRN (Reason: anxiety) Qty: 7 0RF metoprolol succinate 50 mg tablet extended release 24 hr 50 mg PO DAILY Qty: 7 0RF Preparation H 0.25-14-74.9 % ointment 1 appl TX BID PRN (Reason: hemorrhoids) Qty: 57 0RF polyethylene glycol 3350 [Miralax] 17 gram/dose powder 17 g PO BID Qty: 119 0RF Preparation H 0.25-14-74.9 % ointment 1 appl [place] BID Qty: 28 0RF Preparation H(pe,cb) 0.25-88.44 % suppository 1 supp [place] BID Qty: 24 0RF diphenhydramine HCl [Benadryl Allergy] 25 mg tablet 25 mg PO TID PRN (Reason: Pruritus) Qty: 20 0RF loratadine 10 mg tablet 10 mg PO DAILY Qty: 30 0RF fluticasone propionate [Flonase Allergy Relief] 50 mcg/actuation spray,suspension 2 spray intranasal DAILY Qty: 16 0RF Rx Instructions: administer into each nostril alprazolam 0.25 mg tablet 0.25 mg PO TID PRN (Reason: anxiety) Qty: 3 0RF ondansetron 4 mg tablet,disintegrating 4 mg PO Q8H PRN (Reason: nausea and vomiting) Qty: 10 0RF hydrocortisone 1 % cream 1 appl topical BID PRN (Reason: rash) Qty: 28.4 0RF nitrofurantoin monohyd/m-cryst [Macrobid] 100 mg capsule 100 mg PO Q12H 5 Days Qty: 10 0RF Rx Instructions: must administer with a meal/food cephalexin 500 mg capsule 500 mg PO TID Qty: 15 0RF Calmoseptine 0.44-20.6 % ointment 1 appl topical QID PRN (Reason: skin irritation) Qty: 113 0RF magnesium citrate Solution 150 ml PO DAILY PRN (Reason: constipation) Qty: 296 0RF Rx Instructions: take only when needed for constipation hydrocortisone acetate [Anucort-HC] 25 mg suppository 25 mg [place] BID Qty: 12 3RF zolpidem [Ambien] 5 mg tablet 5 mg PO BEDTIME PRN (Reason: sleep) Qty: 2 0RF zolpidem [Ambien] 5 mg tablet 5 mg PO BEDTIME PRN (Reason: sleep) Qty: 2 0RF menthol-zinc oxide [Calmoseptine] 0.44-20.6 % ointment 1 appl topical QID PRN (Reason: skin irritation) Qty: 113 0RF Referrals: [facility] [Provider Group] - 1 week
[2023-11-29] MEDS: Acetaminophen 325 MG TABLET 975 MG PO (09:10)
[2023-11-29 11:09] VITALS: BP 132/75; PULSE 65; RESP 18; O2SAT 97
== END 2023-11-29 11:40 | disposition home or self-care (01) ==
PROVIDERS: Emergency Provider Student in an Organized Health Care Education/Training Program; PCP Internal Medicine Geriatric Medicine
DX: S00.11XA Contusion of right eyelid and periocular area, initial encounter (principal); S62.637A Displaced fracture of distal phalanx of left little finger, initial encounter for closed fracture; W01.0XXA Fall on same level from slipping, tripping and stumbling without subsequent striking against object, initial encounter; I10 Essential (primary) hypertension; Z79.899 Other long term (current) drug therapy; Y93.9 Activity, unspecified; Y92.038 Other place in apartment as the place of occurrence of the external cause; Y99.9 Unspecified external cause status
CPT/HCPCS: 29130; 70450; 70486; 72125; 73120; 99284

== ENCOUNTER 2023-12-01 23:27 | Emergency (ER) | payer OTHER, SELFPAY ==
[2023-12-01 23:35] VITALS: BP 152/84; BP 159/72; PULSE 74; PULSE 99; RESP 16; TEMP 37.2; O2SAT 96; O2SAT 98; BMI 30.3
--- NOTE | 2023-12-01 23:45 | ED.FALL ---
HPI - Fall General Chief Complaint: Fall Stated Complaint: FALL YESTERDAY, HEAD PAIN Time Seen by Provider: 12/01/23 23:45 Source: patient Mode of arrival: ambulatory Limitations: no limitations History of Present Illness HPI Narrative: Patient apparently slipped and fell 11/30 was seen here had CT scan of the face and head which showed contusion no internal injury C-spine of the neck was negative left hand showed 5th finger distal phalanx avulsion fracture patient comes as she says she can not sleep was unable to get the medication tonight she was not in the town patient been here multiple times for similar reasons asking for medication to sleep take alprazolam zolpidem mirtazapine which is given by the [employer] at home Related Data Home Medications Medication Instructions Recorded Confirmed alprazolam 0.5 mg tablet 0.5 mg PO TID PRN Anxiety 08/09/20 09/22/23 aripiprazole 2 mg tablet 2 mg PO BEDTIME 08/09/20 09/22/23 cholecalciferol (vitamin D3) 25 25 mcg PO BID 08/09/20 09/22/23 mcg (1,000 unit) tablet hydroxyzine HCl 50 mg tablet 50 mg PO TID PRN Anxiety 08/09/20 09/22/23 linaclotide 145 mcg capsule 145 mcg PO DAILY 08/09/20 09/22/23 mirtazapine 45 mg tablet 45 mg PO BEDTIME 08/09/20 09/22/23 multivitamin 1 cap PO DAILY 08/09/20 09/22/23 omeprazole 20 mg tablet,delayed 20 mg PO DAILY 08/09/20 09/22/23 release sertraline 50 mg tablet 50 mg PO BEDTIME 08/09/20 09/22/23 Previous Rx's Medication Instructions Recorded escitalopram oxalate 10 mg tablet 10 mg PO DAILY #30 tabs 09/06/20 acetaminophen 325 mg capsule 325 mg PO QID PRN fever or pain 09/16/20 #30 caps aspirin 81 mg tablet,delayed 81 mg PO BEDTIME #90 tabs 09/28/20 release metoprolol succinate 50 mg 50 mg PO DAILY #90 tabs 09/28/20 tablet,extended release 24 hr menthol 0.44 %-zinc oxide 20.6 % 1 appl topical QID PRN skin 12/13/20 topical ointment (Calmoseptine) irritation #113 grams magnesium citrate 150 ml PO DAILY PRN constipation 12/14/20 #296 mL diphenhydramine HCl 25 mg capsule 25 mg PO BEDTIME insomnia #7 caps 12/25/20 (Benadryl) melatonin 10 mg tablet,extended 10 mg PO .nightly #5 tabs 01/07/21 release cefdinir 300 mg capsule 300 mg PO BID Otitis media 10 days 04/14/21 #20 caps ondansetron HCl 4 mg tablet 4 mg PO Q8H PRN nausea and 04/14/21 (Zofran) vomiting #14 tabs metoprolol succinate 50 mg 50 mg PO DAILY #14 tabs 05/22/21 tablet,extended release 24 hr ciprofloxacin 0.3 %-dexamethasone 4 drp otic (ears) BID 7 days 05/26/21 0.1 % ear drops,suspension (Ciprodex) polyethylene glycol 3350 17 17 g PO DAILY PRN constipation 07/31/21 gram/dose oral powder (Miralax) #238 grams hydrocortisone acetate 25 mg 25 mg [place] BID #12 ea 08/01/21 rectal suppository (Anucort-HC) cefuroxime axetil 500 mg tablet 500 mg PO BID 7 days #14 tabs 09/01/21 meclizine 25 mg tablet 25 mg PO TID PRN dizziness #10 tabs 09/01/21 zolpidem 5 mg tablet (Ambien) 5 mg PO BEDTIME PRN sleep #2 tabs 10/29/21 zolpidem 5 mg tablet (Ambien) 5 mg PO BEDTIME PRN sleep #2 tabs 10/29/21 levofloxacin 500 mg tablet 500 mg PO DAILY 7 days #7 tabs 07/23/22 levofloxacin 500 mg tablet 500 mg PO DAILY #6 tabs 08/25/22 ofloxacin 0.3 % ear drops 10 drp otic (ears) DAILY 7 days #5 08/25/22 mL hydrocortisone 2.5 % topical cream 1 appl [place] BEDTIME PRN hemorrhoids 09/20/22 with perineal applicator #30 grams docusate sodium 100 mg capsule 100 mg PO BID PRN Constipation #14 12/06/22 (Colace) caps phenylephrine 0.25 %-mineral oil 1 appl [place] BID PRN hemorrhoids #56 12/06/22 14 %-petrolatm 74.9 % rectal grams ointment (Hemorrhoidal(phenyleph-min oil-petrolat)) polyethylene glycol 3350 17 17 g PO BID #119 grams 12/06/22 gram/dose oral powder (Miralax) cefuroxime axetil 500 mg tablet 500 mg PO BID 10 days #20 tabs 12/16/22 alprazolam 0.25 mg tablet 0.25 mg PO QID #7 tabs 01/04/23 ofloxacin 0.3 % ear drops 5 drp otic (ear) left BID 7 days 01/06/23 #5 mL alprazolam 0.25 mg tablet 0.25 mg PO TID PRN anxiety #7 tabs 01/11/23 alprazolam 0.25 mg tablet 0.25 mg PO TID PRN anxiety #3 tabs 02/02/23 alprazolam 0.5 mg tablet (Xanax) 0.5 mg PO BEDTIME PRN anxiety #7 04/20/23 tabs metoprolol succinate 50 mg 50 mg PO DAILY #7 tabs 05/18/23 tablet,extended release 24 hr lisinopril 40 mg tablet 40 mg PO QPM #90 tabs 05/22/23 ondansetron 4 mg disintegrating 4 mg PO Q8H PRN nausea and 07/06/23 tablet vomiting #10 tabs hydrocortisone 1 % topical cream 1 appl topical BID PRN rash #28.4 08/03/23 grams phenylephrine 0.25 %-mineral oil 1 appl [place] BID PRN hemorrhoids #57 08/17/23 14 %-petrolatm 74.9 % rectal grams ointment (Preparation H) polyethylene glycol 3350 17 17 g PO BID #119 grams 08/17/23 gram/dose oral powder (Miralax) diphenhydramine HCl 25 mg tablet 25 mg PO TID PRN Pruritus #20 tabs 08/25/23 (Benadryl Allergy) phenylephrine 0.25 %-cocoa butter 1 supp [place] BID #24 ea 08/25/23 88.44 % rectal suppository (Preparation H(phenyleph,cocoa buttr)) phenylephrine 0.25 %-mineral oil 1 appl [place] BID #28 grams 08/25/23 14 %-petrolatm 74.9 % rectal ointment (Preparation H) fluticasone propionate 50 2 spray intranasal DAILY #16 grams 09/16/23 mcg/actuation nasal spray,suspension (Flonase Allergy Relief) loratadine 10 mg tablet 10 mg PO DAILY #30 tabs 09/16/23 menthol 0.44 %-zinc oxide 20.6 % 1 appl topical QID PRN skin 09/22/23 topical ointment (Calmoseptine) irritation #113 grams cephalexin 500 mg capsule 500 mg PO TID #15 caps 10/20/23 nitrofurantoin 100 mg PO Q12H 5 days #10 caps 10/20/23 monohydrate/macrocrystals 100 mg capsule (Macrobid) acetaminophen 500 mg tablet 500 mg PO Q6H PRN pain #30 tabs 12/02/23 (Tylenol Extra Strength) Allergies Allergy/AdvReac Type Severity Reaction Status Date / Time penicillin G [Penicillin G] Allergy Severe ITCHY/RASH Verified 11/28/23 08:40 Sulfa (Sulfonamide Allergy Severe ITCHY,RASH, Verified 11/28/23 08:40 Antibiotics) rash [Sulfa (Sulfonamides)] trimethoprim [From Bactrim] Allergy Severe HIVES Verified 11/28/23 08:40 penicillin V Allergy Unknown rash Verified 11/28/23 08:40 sulfacetamide Allergy Unknown unknown Verified 11/28/23 08:40 [From Sulfacet-R] sulfur [From Sulfacet-R] Allergy Unknown unknown Verified 11/28/23 08:40 PMF Past Medical History Medical History Bleeding hemorrhoids Essential hypertension PVC (premature ventricular contraction) PAC (premature atrial contraction) SVT (supraventricular tachycardia) Chronic constipation High blood pressure Vertigo Dementia Arthritis Anxiety Surgical History No pertinent past surgical history Social History Social History Alcohol intake: never Patient Tobacco Use Status: Never used Tobacco Physical Exam Vital Signs: Vital Signs: Last Vital Signs Temp 97.4 F 12/01/23 23:55 Pulse 77 12/01/23 23:55 Resp 16 12/01/23 23:55 BP 149/75 H 12/01/23 23:55 Pulse Ox 97 12/01/23 23:55 O2 Del Method Room Air 12/01/23 23:55 BMI result Body Mass Index 30.3 Appearance: Alert. Oriented X3. No acute distress. Eyes: PERRLA, No Nystagmus ecchymosis right periorbital area and forehead ENT: Pharynx normal. Oral Mucosa moist Neck: Normal inspection. Neck supple. CVS: Normal heart rate and rhythm. Pulses normal. Respiratory: No respiratory distress. Equal air entry bilateral, no wheezing/rales/rhonchi Abdomen: Soft and nontender. Bowel sounds are present, no mass palpable, no CVA tenderness Skin: Skin warm and dry. Normal skin color. Normal skin turgor. Extremities: No lower extremity edema. No calf tenderness tenderness swelling of the left 5th finger with ecchymosis Neuro: Oriented X 3. No motor deficit. No sensory deficit.No cerebellar signs , cranial nerves II-XII intact Discharge Plan Discharge Clinical Impression: Fall, Finger fracture, left Patient Disposition: Home, Self-Care Instructions: Finger Fracture (ED), Fall Prevention for Older Adults (ED) Additional Instructions: Continue medications as prescribed by your PCP Tylenol for pain Prescriptions: New acetaminophen [Tylenol Extra Strength] 500 mg tablet 500 mg PO Q6H PRN (Reason: pain) Qty: 30 0RF No Action escitalopram oxalate 10 mg tablet 10 mg PO DAILY Qty: 30 1RF metoprolol succinate 50 mg tablet extended release 24 hr 50 mg PO DAILY Qty: 90 2RF aspirin 81 mg tablet,delayed release (DR/EC) 81 mg PO BEDTIME Qty: 90 2RF polyethylene glycol 3350 [Miralax] 17 gram/dose powder 17 g PO DAILY PRN (Reason: constipation) Qty: 238 0RF lisinopril 40 mg tablet 40 mg PO QPM Qty: 90 0RF Rx Instructions: Please call and schedule cardiology appt acetaminophen 325 mg capsule 325 mg PO QID PRN (Reason: fever or pain) Qty: 30 0RF melatonin 10 mg tablet extended release 10 mg PO .nightly Qty: 5 0RF metoprolol succinate 50 mg tablet extended release 24 hr 50 mg PO DAILY Qty: 14 0RF ciprofloxacin-dexamethasone [Ciprodex] 0.3-0.1 % drops,suspension 4 drp otic (ears) BID 7 Days 0RF alprazolam 0.5 mg Tablet 0.5 mg PO TID PRN (Reason: Anxiety) hydroxyzine HCl 50 mg Tablet 50 mg PO TID PRN (Reason: Anxiety) mirtazapine 45 mg Tablet 45 mg PO BEDTIME multivitamin Capsule 1 cap PO DAILY sertraline 50 mg Tablet 50 mg PO BEDTIME aripiprazole 2 mg Tablet 2 mg PO BEDTIME cholecalciferol (vitamin D3) 25 mcg (1,000 unit) Tablet 25 mcg PO BID omeprazole 20 mg Tablet,Delayed Release (Dr/Ec) 20 mg PO DAILY linaclotide 145 mcg Capsule 145 mcg PO DAILY diphenhydramine HCl [Benadryl] 25 mg capsule 25 mg PO BEDTIME Qty: 7 0RF cefdinir 300 mg capsule 300 mg PO BID 10 Days Qty: 20 0RF ondansetron HCl [Zofran] 4 mg tablet 4 mg PO Q8H PRN (Reason: nausea and vomiting) Qty: 14 0RF cefuroxime axetil 500 mg tablet 500 mg PO BID 7 Days Qty: 14 0RF meclizine 25 mg tablet 25 mg PO TID PRN (Reason: dizziness) Qty: 10 0RF levofloxacin 500 mg tablet 500 mg PO DAILY 7 Days Qty: 7 0RF cefuroxime axetil 500 mg tablet 500 mg PO BID 10 Days Qty: 20 0RF alprazolam 0.25 mg tablet 0.25 mg PO QID Qty: 7 0RF levofloxacin 500 mg tablet 500 mg PO DAILY Qty: 6 0RF Rx Instructions: start on 08/26 ofloxacin 0.3 % drops 10 drp otic (ears) DAILY 7 Days Qty: 5 0RF Rx Instructions: can substitute eye drops if necessary hydrocortisone 2.5 % cream with perineal applicator 1 appl [place] BEDTIME PRN (Reason: hemorrhoids) Qty: 30 0RF Hemorrhoidal(PE-min oil-emma) 0.25-14-74.9 % ointment 1 appl [place] BID PRN (Reason: hemorrhoids) Qty: 56 0RF polyethylene glycol 3350 [Miralax] 17 gram/dose powder 17 g PO BID Qty: 119 0RF docusate sodium [Colace] 100 mg capsule 100 mg PO BID PRN (Reason: Constipation) Qty: 14 0RF ofloxacin 0.3 % drops 5 drp otic (ear) left BID 7 Days Qty: 5 0RF alprazolam 0.25 mg tablet 0.25 mg PO TID PRN (Reason: anxiety) Qty: 7 0RF alprazolam [Xanax] 0.5 mg tablet 0.5 mg PO BEDTIME PRN (Reason: anxiety) Qty: 7 0RF metoprolol succinate 50 mg tablet extended release 24 hr 50 mg PO DAILY Qty: 7 0RF Preparation H 0.25-14-74.9 % ointment 1 appl [place] BID PRN (Reason: hemorrhoids) Qty: 57 0RF polyethylene glycol 3350 [Miralax] 17 gram/dose powder 17 g PO BID Qty: 119 0RF Preparation H 0.25-14-74.9 % ointment 1 appl [place] BID Qty: 28 0RF Preparation H(pe,cb) 0.25-88.44 % suppository 1 supp [place] BID Qty: 24 0RF diphenhydramine HCl [Benadryl Allergy] 25 mg tablet 25 mg PO TID PRN (Reason: Pruritus) Qty: 20 0RF loratadine 10 mg tablet 10 mg PO DAILY Qty: 30 0RF fluticasone propionate [Flonase Allergy Relief] 50 mcg/actuation spray,suspension 2 spray intranasal DAILY Qty: 16 0RF Rx Instructions: administer into each nostril alprazolam 0.25 mg tablet 0.25 mg PO TID PRN (Reason: anxiety) Qty: 3 0RF ondansetron 4 mg tablet,disintegrating 4 mg PO Q8H PRN (Reason: nausea and vomiting) Qty: 10 0RF hydrocortisone 1 % cream 1 appl topical BID PRN (Reason: rash) Qty: 28.4 0RF nitrofurantoin monohyd/m-cryst [Macrobid] 100 mg capsule 100 mg PO Q12H 5 Days Qty: 10 0RF Rx Instructions: must administer with a meal/food cephalexin 500 mg capsule 500 mg PO TID Qty: 15 0RF Calmoseptine 0.44-20.6 % ointment 1 appl topical QID PRN (Reason: skin irritation) Qty: 113 0RF magnesium citrate Solution 150 ml PO DAILY PRN (Reason: constipation) Qty: 296 0RF Rx Instructions: take only when needed for constipation hydrocortisone acetate [Anucort-HC] 25 mg suppository 25 mg [place] BID Qty: 12 3RF zolpidem [Ambien] 5 mg tablet 5 mg PO BEDTIME PRN (Reason: sleep) Qty: 2 0RF zolpidem [Ambien] 5 mg tablet 5 mg PO BEDTIME PRN (Reason: sleep) Qty: 2 0RF menthol-zinc oxide [Calmoseptine] 0.44-20.6 % ointment 1 appl topical QID PRN (Reason: skin irritation) Qty: 113 0RF
[2023-12-01 23:55] VITALS: BP 149/75; PULSE 77; RESP 16; TEMP 36.3; O2SAT 97
[2023-12-02] MEDS: traMADoL HCL 50 MG TABLET PO (00:26)
--- NOTE | 2023-12-02 00:30 | PC.NURSE ---
pt medicated according to jan. pt ambulatory. pt discharged to waiting room awaiting ride home. pt calm and cooperative. pt provided with discharge packet. pt verbalized understanding of discharge plan
== END 2023-12-02 00:32 | disposition home or self-care (01) ==
PROVIDERS: Emergency Provider Internal Medicine
DX: M79.645 Pain in left finger(s) (principal); S62.637D Displaced fracture of distal phalanx of left little finger, subsequent encounter for fracture with routine healing; W19.XXXD Unspecified fall, subsequent encounter
CPT/HCPCS: 99283; 99284

== ENCOUNTER 2023-12-02 06:54 | Emergency (ER) | payer OTHER, SELFPAY ==
--- NOTE | 2023-12-02 06:59 | ED.GENADULT ---
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 Patient states that she fell a few days ago and thinks she broke her 5th finger of her left hand and is having increased anxiety. Patient states that when she initially fell a few days ago she was seen here and discharged after imaging. Patient denies any dizziness, lightheadedness, abdominal pain, nausea, vomiting, fever, chills, blurry vision, double vision, loss of vision, chest pain, difficulty breathing, shortness of breath, back pain, night sweats, pain with urination, increased urinary frequency, increased urinary urgency, blood in her urine or stool, syncope or a near syncopal episode, bowel incontinence, bladder incontinence, bowel retention, bladder retention, or any other complaints at this time. Relieving factors: none Exacerbating factors: none Associated symptoms: denies other symptoms Treatments prior to arrival: none Related Data Home Medications Medication Instructions Recorded Confirmed alprazolam 0.5 mg tablet 0.5 mg PO TID PRN Anxiety 08/09/20 09/22/23 aripiprazole 2 mg tablet 2 mg PO BEDTIME 08/09/20 09/22/23 cholecalciferol (vitamin D3) 25 25 mcg PO BID 08/09/20 09/22/23 mcg (1,000 unit) tablet hydroxyzine HCl 50 mg tablet 50 mg PO TID PRN Anxiety 08/09/20 09/22/23 linaclotide 145 mcg capsule 145 mcg PO DAILY 08/09/20 09/22/23 mirtazapine 45 mg tablet 45 mg PO BEDTIME 08/09/20 09/22/23 multivitamin 1 cap PO DAILY 08/09/20 09/22/23 omeprazole 20 mg tablet,delayed 20 mg PO DAILY 08/09/20 09/22/23 release sertraline 50 mg tablet 50 mg PO BEDTIME 08/09/20 09/22/23 Previous Rx's Medication Instructions Recorded escitalopram oxalate 10 mg tablet 10 mg PO DAILY #30 tabs 09/06/20 acetaminophen 325 mg capsule 325 mg PO QID PRN fever or pain 09/16/20 #30 caps aspirin 81 mg tablet,delayed 81 mg PO BEDTIME #90 tabs 09/28/20 release metoprolol succinate 50 mg 50 mg PO DAILY #90 tabs 09/28/20 tablet,extended release 24 hr menthol 0.44 %-zinc oxide 20.6 % 1 appl topical QID PRN skin 12/13/20 topical ointment (Calmoseptine) irritation #113 grams magnesium citrate 150 ml PO DAILY PRN constipation 12/14/20 #296 mL diphenhydramine HCl 25 mg capsule 25 mg PO BEDTIME insomnia #7 caps 12/25/20 (Benadryl) melatonin 10 mg tablet,extended 10 mg PO .nightly #5 tabs 01/07/21 release cefdinir 300 mg capsule 300 mg PO BID Otitis media 10 days 04/14/21 #20 caps ondansetron HCl 4 mg tablet 4 mg PO Q8H PRN nausea and 04/14/21 (Zofran) vomiting #14 tabs metoprolol succinate 50 mg 50 mg PO DAILY #14 tabs 05/22/21 tablet,extended release 24 hr ciprofloxacin 0.3 %-dexamethasone 4 drp otic (ears) BID 7 days 05/26/21 0.1 % ear drops,suspension (Ciprodex) polyethylene glycol 3350 17 17 g PO DAILY PRN constipation 07/31/21 gram/dose oral powder (Miralax) #238 grams hydrocortisone acetate 25 mg 25 mg WA BID #12 ea 08/01/21 rectal suppository (Anucort-HC) cefuroxime axetil 500 mg tablet 500 mg PO BID 7 days #14 tabs 09/01/21 meclizine 25 mg tablet 25 mg PO TID PRN dizziness #10 tabs 09/01/21 zolpidem 5 mg tablet (Ambien) 5 mg PO BEDTIME PRN sleep #2 tabs 10/29/21 zolpidem 5 mg tablet (Ambien) 5 mg PO BEDTIME PRN sleep #2 tabs 10/29/21 levofloxacin 500 mg tablet 500 mg PO DAILY 7 days #7 tabs 07/23/22 levofloxacin 500 mg tablet 500 mg PO DAILY #6 tabs 08/25/22 ofloxacin 0.3 % ear drops 10 drp otic (ears) DAILY 7 days #5 08/25/22 mL hydrocortisone 2.5 % topical cream 1 appl WA BEDTIME PRN hemorrhoids 09/20/22 with perineal applicator #30 grams docusate sodium 100 mg capsule 100 mg PO BID PRN Constipation #14 12/06/22 (Colace) caps phenylephrine 0.25 %-mineral oil 1 appl WA BID PRN hemorrhoids #56 12/06/22 14 %-petrolatm 74.9 % rectal grams ointment (Hemorrhoidal(phenyleph-min oil-petrolat)) polyethylene glycol 3350 17 17 g PO BID #119 grams 12/06/22 gram/dose oral powder (Miralax) cefuroxime axetil 500 mg tablet 500 mg PO BID 10 days #20 tabs 12/16/22 alprazolam 0.25 mg tablet 0.25 mg PO QID #7 tabs 01/04/23 ofloxacin 0.3 % ear drops 5 drp otic (ear) left BID 7 days 01/06/23 #5 mL alprazolam 0.25 mg tablet 0.25 mg PO TID PRN anxiety #7 tabs 01/11/23 alprazolam 0.25 mg tablet 0.25 mg PO TID PRN anxiety #3 tabs 02/02/23 alprazolam 0.5 mg tablet (Xanax) 0.5 mg PO BEDTIME PRN anxiety #7 04/20/23 tabs metoprolol succinate 50 mg 50 mg PO DAILY #7 tabs 05/18/23 tablet,extended release 24 hr lisinopril 40 mg tablet 40 mg PO QPM #90 tabs 05/22/23 ondansetron 4 mg disintegrating 4 mg PO Q8H PRN nausea and 07/06/23 tablet vomiting #10 tabs hydrocortisone 1 % topical cream 1 appl topical BID PRN rash #28.4 08/03/23 grams phenylephrine 0.25 %-mineral oil 1 appl WA BID PRN hemorrhoids #57 08/17/23 14 %-petrolatm 74.9 % rectal grams ointment (Preparation H) polyethylene glycol 3350 17 17 g PO BID #119 grams 08/17/23 gram/dose oral powder (Miralax) diphenhydramine HCl 25 mg tablet 25 mg PO TID PRN Pruritus #20 tabs 08/25/23 (Benadryl Allergy) phenylephrine 0.25 %-cocoa butter 1 supp WA BID #24 ea 08/25/23 88.44 % rectal suppository (Preparation H(phenyleph,cocoa buttr)) phenylephrine 0.25 %-mineral oil 1 appl WA BID #28 grams 08/25/23 14 %-petrolatm 74.9 % rectal ointment (Preparation H) fluticasone propionate 50 2 spray intranasal DAILY #16 grams 09/16/23 mcg/actuation nasal spray,suspension (Flonase Allergy Relief) loratadine 10 mg tablet 10 mg PO DAILY #30 tabs 09/16/23 menthol 0.44 %-zinc oxide 20.6 % 1 appl topical QID PRN skin 09/22/23 topical ointment (Calmoseptine) irritation #113 grams cephalexin 500 mg capsule 500 mg PO TID #15 caps 10/20/23 nitrofurantoin 100 mg PO Q12H 5 days #10 caps 10/20/23 monohydrate/macrocrystals 100 mg capsule (Macrobid) acetaminophen 500 mg tablet 500 mg PO Q6H PRN pain #30 tabs 12/02/23 (Tylenol Extra Strength) Allergies Allergy/AdvReac Type Severity Reaction Status Date / Time penicillin G [Penicillin G] Allergy Severe ITCHY/RASH Verified 11/28/23 08:40 Sulfa (Sulfonamide Allergy Severe ITCHY,RASH, Verified 11/28/23 08:40 Antibiotics) rash [Sulfa (Sulfonamides)] trimethoprim [From Bactrim] Allergy Severe HIVES Verified 11/28/23 08:40 penicillin V Allergy Unknown rash Verified 11/28/23 08:40 sulfacetamide Allergy Unknown unknown Verified 11/28/23 08:40 [From Sulfacet-R] sulfur [From Sulfacet-R] Allergy Unknown unknown Verified 11/28/23 08:40 Review of Systems Constitutional: Constitutional: Reports no additional constitutional complaints, Denies chills, Denies fever(s) and Denies night sweats Eyes: Eyes: Reports no additional eye complaints, Denies blurry vision, Denies change in vision, Denies diplopia, Denies eye discharge, Denies loss of vision and Denies eye pain ENT: Denies dizziness Cardiovascular: Cardiovascular: Reports no additional cardiovascular complaints, Denies chest pain, Denies lightheadedness, Denies Loss of Consciousness and Denies dyspnea Respiratory: Respiratory: Reports no additional respiratory complaints and Denies dyspnea Gastrointestinal: Gastrointestinal: Reports no additional gastrointestinal complaints, Denies abdominal pain, Denies melena, Denies hematochezia, Denies change in bowel habits and Denies change in stool character Genitourinary: Genitourinary: Denies hematuria, Denies urinary frequency, Denies dysuria, Denies urinary incontinence, Denies urinary hesitancy and Denies urinary urgency Musculoskeletal: Musculoskeletal: Reports no additional musculoskeletal complaints, Denies numbness and Denies tingling Comments: left 5th finger pain Neurologic: Denies dizziness, Denies loss of vision, Denies numbness and Denies tingling Psychiatric: Psychiatric: Reports no additional psychiatric complaints and Reports anxiety Endocrine: Endocrine: Reports no additional endocrine complaints Hematologic/Lymphatic: Hematologic/Lymphatic: Reports no additional hematologic/lymphatic complaints Allergic/Immunologic: Allergic/Immunologic: Reports no additional allergic/immunologic complaints PMFSH Past Medical History Attestation statement: The following information was validated with the patient. Source: old records reviewed and nursing notes reviewed Medical History Bleeding hemorrhoids Essential hypertension PVC (premature ventricular contraction) PAC (premature atrial contraction) SVT (supraventricular tachycardia) Chronic constipation High blood pressure Vertigo Dementia Arthritis Anxiety Surgical History No pertinent past surgical history Social History Social History Alcohol intake: never Patient Tobacco Use Status: Never used Tobacco Advance Directives: No Advance Directives Information Provided: Yes Physical Exam ED Vital Signs: Vital Signs - 24 hr 12/02/23 07:04 Temperature 98.1 F Pulse Rate 79 Respiratory Rate 16 Blood Pressure 163/72 H Pulse Oximetry 100 Oxygen Delivery Method Room Air BMI result Body Mass Index 29.0 Const General: cooperative, no acute distress, alert and awake Nutritional Appearance: well nourished Orientation/consciousness: patient oriented x3 Limitations: no limitations HENMT Other: healing bruising around the right eye Ears: hearing grossly normal bilaterally and external ears normal General nose exam: Normal external nose present, no nasal discharge noted and no epistaxis Face and sinus: Yes normal facial exam, No abrasion and No laceration Mouth: Normal oral and palatal mucosa present, no drooling and no muffled voice Eyes Conjunctivae: conjunctivae normal Pupils: Equal, round and reactive pupils present EOM: EOMs intact bilaterally Neck Neck: Yes normal visual inspection, Yes full ROM and Yes no lymphadenopathy Chest Chest palpation & inspection: normal inspection of the chest Resp Effort & Inspection: normal respiratory effort and able to speak in complete sentences GI Inspection: Yes normal to inspection Neuro General: patient oriented x3 and moves all extremities Cranial nerves: Yes Equal, round and reactive pupils present Cognition (Neuro): normal cognition Motor exam (neuro): 5/5 motor strength present throughout Sensory Exam: Normal double simultaneous stimulation for sensation Coordination: [id number] test normal Extrem Other: swelling present to the left 5th digit General: Yes full ROM and Yes capillary refill normal Psych Appearance: grossly normal Mental Status: mental status grossly normal Affect: normal affect Attitude: cooperative Thought process: Normal thought process present Thought content: Normal thought content present Insight: Good insight present (Psych) Medications Administered Discontinued Medications Generic Name Dose Route Start Last Admin Trade Name Beau PRN Reason Stop Dose Admin Acetaminophen 650 mg 12/02/23 07:14 12/02/23 07:30 Acetaminophen 325 Mg Tablet PO 12/02/23 07:15 650 mg ONCE ONE Administration Hydroxyzine HCl 10 mg 12/02/23 07:17 12/02/23 07:30 Hydroxyzine Hcl 10 Mg Tablet PO 12/02/23 07:18 10 mg ONCE ONE Administration Ondansetron HCl 4 mg 12/02/23 07:14 12/02/23 07:31 Ondansetron Odt 4 Mg Tab.Rapdis TRANSLINGU 12/02/23 07:15 4 mg ONCE ONE Administration Procedures Orthopedic Splinting/Casting Injury #1: Side: left Upper Extremity Injury Location: finger (5th) Upper Extremity Immobilizer: finger (other) Medical Decision Making Medical Decision Making MDM Narrative: Patient is an 78 year old assigned female at with a history of HTN and anxiety presenting to the emergency department today with increased anxiety and left 5th finger pain. Patient's physical exam was as noted in the physical exam portion of this note. Patient's left hand x-ray from 11/29/2023 showed a 5th finger fracture. I explained my physical exam findings as well as all test results to the patient. I answered all questions asked by the patient. Patient was given Hydroxyzine for her anxiety and her left 5th finger was placed in a splint, without incident. Patient's PMS was intact prior to and after splint placement. I stressed the importance of the patient taking her medication as prescribed. I stressed the importance of the patient following up with her primary care provider and an orthopedic provider. I stressed the importance of the patient returning to the emergency department immediately if her symptoms were to worsen or if she were to develop any dizziness, shortness of breath, difficulty breathing, chest pain, blurry vision, loss of vision, nausea, vomiting, abdominal pain, fever, chills, back pain, or any other complaints. Patient verbalized agreement and understanding with this treatment plan and discharge. Differential Diagnosis Differential Diagnoses: The differential diagnosis associated with the presentation includes Finger fracture Anxiety Finger pain Finger strain HTN Admission/Observation Consideration of admission/observation: Escalation of care including admission/observation considered Patient would have been admitted to the hospital had her clinical presentation warranted hospital admission. Independent Interpretation I performed an independent interpretation of an: Plain X-Ray Interpretation: My interpretation is in agreement with the radiologist's impression of this imaging study from 11/29/2023. EXAMINATION: XR HAND, LEFT CLINICAL INFORMATION: Fall pain COMPARISON: None available. TECHNIQUE: PA, lateral, and oblique views of the left hand. FINDINGS: There is likely an avulsion fracture of the posterior base of the distal phalanx fifth finger. All other fingers are intact. 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 XR/XR hand LT 2V IMPRESSION: 1. Avulsion fracture of the posterior base of the distal phalanx fifth finger. 2. No other fractures. Dictated By: Fredi Machado MD Signed By: Electronically signed by Fredi Machado MD 11/29/23 1000 Radiology Impression Discussion of test interpretation with radiology: I have reviewed the radiologist's reading. Discharge Plan Discharge Clinical Impression: Finger fracture, Anxiety Patient Disposition: Home, Self-Care Instructions: Finger Fracture (ED) Additional Instructions: Follow up with your primary care provider and an orthopedic provider. Return to the emergency department immediately if your symptoms worsen or if you develop any dizziness, shortness of breath, difficulty breathing, chest pain, blurry vision, loss of vision, nausea, vomiting, abdominal pain, fever, chills, back pain, or any other complaints. Prescriptions: No Action escitalopram oxalate 10 mg tablet 10 mg PO DAILY Qty: 30 1RF metoprolol succinate 50 mg tablet extended release 24 hr 50 mg PO DAILY Qty: 90 2RF aspirin 81 mg tablet,delayed release (DR/EC) 81 mg PO BEDTIME Qty: 90 2RF polyethylene glycol 3350 [Miralax] 17 gram/dose powder 17 g PO DAILY PRN (Reason: constipation) Qty: 238 0RF lisinopril 40 mg tablet 40 mg PO QPM Qty: 90 0RF Rx Instructions: Please call and schedule cardiology appt acetaminophen 325 mg capsule 325 mg PO QID PRN (Reason: fever or pain) Qty: 30 0RF melatonin 10 mg tablet extended release 10 mg PO .nightly Qty: 5 0RF metoprolol succinate 50 mg tablet extended release 24 hr 50 mg PO DAILY Qty: 14 0RF ciprofloxacin-dexamethasone [Ciprodex] 0.3-0.1 % drops,suspension 4 drp otic (ears) BID 7 Days 0RF alprazolam 0.5 mg Tablet 0.5 mg PO TID PRN (Reason: Anxiety) hydroxyzine HCl 50 mg Tablet 50 mg PO TID PRN (Reason: Anxiety) mirtazapine 45 mg Tablet 45 mg PO BEDTIME multivitamin Capsule 1 cap PO DAILY sertraline 50 mg Tablet 50 mg PO BEDTIME aripiprazole 2 mg Tablet 2 mg PO BEDTIME cholecalciferol (vitamin D3) 25 mcg (1,000 unit) Tablet 25 mcg PO BID omeprazole 20 mg Tablet,Delayed Release (Dr/Ec) 20 mg PO DAILY linaclotide 145 mcg Capsule 145 mcg PO DAILY diphenhydramine HCl [Benadryl] 25 mg capsule 25 mg PO BEDTIME Qty: 7 0RF cefdinir 300 mg capsule 300 mg PO BID 10 Days Qty: 20 0RF ondansetron HCl [Zofran] 4 mg tablet 4 mg PO Q8H PRN (Reason: nausea and vomiting) Qty: 14 0RF cefuroxime axetil 500 mg tablet 500 mg PO BID 7 Days Qty: 14 0RF meclizine 25 mg tablet 25 mg PO TID PRN (Reason: dizziness) Qty: 10 0RF levofloxacin 500 mg tablet 500 mg PO DAILY 7 Days Qty: 7 0RF cefuroxime axetil 500 mg tablet 500 mg PO BID 10 Days Qty: 20 0RF alprazolam 0.25 mg tablet 0.25 mg PO QID Qty: 7 0RF levofloxacin 500 mg tablet 500 mg PO DAILY Qty: 6 0RF Rx Instructions: start on 08/26 ofloxacin 0.3 % drops 10 drp otic (ears) DAILY 7 Days Qty: 5 0RF Rx Instructions: can substitute eye drops if necessary hydrocortisone 2.5 % cream with perineal applicator 1 appl WA BEDTIME PRN (Reason: hemorrhoids) Qty: 30 0RF Hemorrhoidal(PE-min oil-emma) 0.25-14-74.9 % ointment 1 appl WA BID PRN (Reason: hemorrhoids) Qty: 56 0RF polyethylene glycol 3350 [Miralax] 17 gram/dose powder 17 g PO BID Qty: 119 0RF docusate sodium [Colace] 100 mg capsule 100 mg PO BID PRN (Reason: Constipation) Qty: 14 0RF ofloxacin 0.3 % drops 5 drp otic (ear) left BID 7 Days Qty: 5 0RF alprazolam 0.25 mg tablet 0.25 mg PO TID PRN (Reason: anxiety) Qty: 7 0RF alprazolam [Xanax] 0.5 mg tablet 0.5 mg PO BEDTIME PRN (Reason: anxiety) Qty: 7 0RF metoprolol succinate 50 mg tablet extended release 24 hr 50 mg PO DAILY Qty: 7 0RF Preparation H 0.25-14-74.9 % ointment 1 appl WA BID PRN (Reason: hemorrhoids) Qty: 57 0RF polyethylene glycol 3350 [Miralax] 17 gram/dose powder 17 g PO BID Qty: 119 0RF Preparation H 0.25-14-74.9 % ointment 1 appl WA BID Qty: 28 0RF Preparation H(pe,cb) 0.25-88.44 % suppository 1 supp WA BID Qty: 24 0RF diphenhydramine HCl [Benadryl Allergy] 25 mg tablet 25 mg PO TID PRN (Reason: Pruritus) Qty: 20 0RF loratadine 10 mg tablet 10 mg PO DAILY Qty: 30 0RF fluticasone propionate [Flonase Allergy Relief] 50 mcg/actuation spray,suspension 2 spray intranasal DAILY Qty: 16 0RF Rx Instructions: administer into each nostril alprazolam 0.25 mg tablet 0.25 mg PO TID PRN (Reason: anxiety) Qty: 3 0RF ondansetron 4 mg tablet,disintegrating 4 mg PO Q8H PRN (Reason: nausea and vomiting) Qty: 10 0RF hydrocortisone 1 % cream 1 appl topical BID PRN (Reason: rash) Qty: 28.4 0RF nitrofurantoin monohyd/m-cryst [Macrobid] 100 mg capsule 100 mg PO Q12H 5 Days Qty: 10 0RF Rx Instructions: must administer with a meal/food cephalexin 500 mg capsule 500 mg PO TID Qty: 15 0RF acetaminophen [Tylenol Extra Strength] 500 mg tablet 500 mg PO Q6H PRN (Reason: pain) Qty: 30 0RF Calmoseptine 0.44-20.6 % ointment 1 appl topical QID PRN (Reason: skin irritation) Qty: 113 0RF magnesium citrate Solution 150 ml PO DAILY PRN (Reason: constipation) Qty: 296 0RF Rx Instructions: take only when needed for constipation hydrocortisone acetate [Anucort-HC] 25 mg suppository 25 mg WA BID Qty: 12 3RF zolpidem [Ambien] 5 mg tablet 5 mg PO BEDTIME PRN (Reason: sleep) Qty: 2 0RF zolpidem [Ambien] 5 mg tablet 5 mg PO BEDTIME PRN (Reason: sleep) Qty: 2 0RF menthol-zinc oxide [Calmoseptine] 0.44-20.6 % ointment 1 appl topical QID PRN (Reason: skin irritation) Qty: 113 0RF Referrals: [facility] [place] [facility] [Provider Group] (Call to establish and follow up with an orthopedic provider.) Name,MD Nitin [Primary Care Provider] - Discharge Date/Time: 12/02/23 08:18 Print Language: [place]
[2023-12-02 07:04] VITALS: BP 140/88; BP 163/72; PULSE 79; PULSE 89; RESP 16; TEMP 36.7; O2SAT 100; O2SAT 98; BMI 29.0
[2023-12-02] MEDS: Acetaminophen 325 MG TABLET 650 MG PO (07:30)
[2023-12-02] MEDS: hydrOXYzine HCL 10 MG TABLET PO (07:30)
[2023-12-02] MEDS: Ondansetron ODT 4 MG TAB.RAPDIS TRANSLINGU (07:31)
== END 2023-12-02 08:18 | disposition home or self-care (01) ==
PROVIDERS: Emergency Provider Emergency Medicine Emergency Medical Services; PCP Internal Medicine Geriatric Medicine
DX: F41.9 Anxiety disorder, unspecified (principal); S62.637D Displaced fracture of distal phalanx of left little finger, subsequent encounter for fracture with routine healing; W19.XXXD Unspecified fall, subsequent encounter
CPT/HCPCS: 29130; 99282; 99283

== ENCOUNTER 2023-12-04 00:34 | Emergency (ER) | payer OTHER, SELFPAY ==
[2023-12-04 00:42] VITALS: BP 169/78; PULSE 82; O2SAT 98; BMI 27.7
[2023-12-04 00:46] VITALS: BP 169/88; PULSE 105; TEMP 36.9; O2SAT 99
--- NOTE | 2023-12-04 02:30 | ED_ITS ---
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 Mode of arrival: EMS History of Present Illness HPI Narrative: 78-year-old female who arrives with complaints of left ear discomfort but denies fevers, chills, dizziness Related Data Home Medications Medication Instructions Recorded Confirmed alprazolam 0.5 mg tablet 0.5 mg PO TID PRN Anxiety 08/09/20 09/22/23 aripiprazole 2 mg tablet 2 mg PO BEDTIME 08/09/20 09/22/23 cholecalciferol (vitamin D3) 25 25 mcg PO BID 08/09/20 09/22/23 mcg (1,000 unit) tablet hydroxyzine HCl 50 mg tablet 50 mg PO TID PRN Anxiety 08/09/20 09/22/23 linaclotide 145 mcg capsule 145 mcg PO DAILY 08/09/20 09/22/23 mirtazapine 45 mg tablet 45 mg PO BEDTIME 08/09/20 09/22/23 multivitamin 1 cap PO DAILY 08/09/20 09/22/23 omeprazole 20 mg tablet,delayed 20 mg PO DAILY 08/09/20 09/22/23 release sertraline 50 mg tablet 50 mg PO BEDTIME 08/09/20 09/22/23 Previous Rx's Medication Instructions Recorded escitalopram oxalate 10 mg tablet 10 mg PO DAILY #30 tabs 09/06/20 acetaminophen 325 mg capsule 325 mg PO QID PRN fever or pain 09/16/20 #30 caps aspirin 81 mg tablet,delayed 81 mg PO BEDTIME #90 tabs 09/28/20 release metoprolol succinate 50 mg 50 mg PO DAILY #90 tabs 09/28/20 tablet,extended release 24 hr menthol 0.44 %-zinc oxide 20.6 % 1 appl topical QID PRN skin 12/13/20 topical ointment (Calmoseptine) irritation #113 grams magnesium citrate 150 ml PO DAILY PRN constipation 12/14/20 #296 mL diphenhydramine HCl 25 mg capsule 25 mg PO BEDTIME insomnia #7 caps 12/25/20 (Benadryl) melatonin 10 mg tablet,extended 10 mg PO .nightly #5 tabs 01/07/21 release cefdinir 300 mg capsule 300 mg PO BID Otitis media 10 days 04/14/21 #20 caps ondansetron HCl 4 mg tablet 4 mg PO Q8H PRN nausea and 04/14/21 (Zofran) vomiting #14 tabs metoprolol succinate 50 mg 50 mg PO DAILY #14 tabs 05/22/21 tablet,extended release 24 hr ciprofloxacin 0.3 %-dexamethasone 4 drp otic (ears) BID 7 days 05/26/21 0.1 % ear drops,suspension (Ciprodex) polyethylene glycol 3350 17 17 g PO DAILY PRN constipation 07/31/21 gram/dose oral powder (Miralax) #238 grams hydrocortisone acetate 25 mg 25 mg NC BID #12 ea 08/01/21 rectal suppository (Anucort-HC) cefuroxime axetil 500 mg tablet 500 mg PO BID 7 days #14 tabs 09/01/21 meclizine 25 mg tablet 25 mg PO TID PRN dizziness #10 tabs 09/01/21 zolpidem 5 mg tablet (Ambien) 5 mg PO BEDTIME PRN sleep #2 tabs 10/29/21 zolpidem 5 mg tablet (Ambien) 5 mg PO BEDTIME PRN sleep #2 tabs 10/29/21 levofloxacin 500 mg tablet 500 mg PO DAILY 7 days #7 tabs 07/23/22 levofloxacin 500 mg tablet 500 mg PO DAILY #6 tabs 08/25/22 ofloxacin 0.3 % ear drops 10 drp otic (ears) DAILY 7 days #5 08/25/22 mL hydrocortisone 2.5 % topical cream 1 appl NC BEDTIME PRN hemorrhoids 09/20/22 with perineal applicator #30 grams docusate sodium 100 mg capsule 100 mg PO BID PRN Constipation #14 12/06/22 (Colace) caps phenylephrine 0.25 %-mineral oil 1 appl NC BID PRN hemorrhoids #56 12/06/22 14 %-petrolatm 74.9 % rectal grams ointment (Hemorrhoidal(phenyleph-min oil-petrolat)) polyethylene glycol 3350 17 17 g PO BID #119 grams 12/06/22 gram/dose oral powder (Miralax) cefuroxime axetil 500 mg tablet 500 mg PO BID 10 days #20 tabs 12/16/22 alprazolam 0.25 mg tablet 0.25 mg PO QID #7 tabs 01/04/23 ofloxacin 0.3 % ear drops 5 drp otic (ear) left BID 7 days 01/06/23 #5 mL alprazolam 0.25 mg tablet 0.25 mg PO TID PRN anxiety #7 tabs 01/11/23 alprazolam 0.25 mg tablet 0.25 mg PO TID PRN anxiety #3 tabs 02/02/23 alprazolam 0.5 mg tablet (Xanax) 0.5 mg PO BEDTIME PRN anxiety #7 04/20/23 tabs metoprolol succinate 50 mg 50 mg PO DAILY #7 tabs 05/18/23 tablet,extended release 24 hr lisinopril 40 mg tablet 40 mg PO QPM #90 tabs 05/22/23 ondansetron 4 mg disintegrating 4 mg PO Q8H PRN nausea and 07/06/23 tablet vomiting #10 tabs hydrocortisone 1 % topical cream 1 appl topical BID PRN rash #28.4 08/03/23 grams phenylephrine 0.25 %-mineral oil 1 appl NC BID PRN hemorrhoids #57 08/17/23 14 %-petrolatm 74.9 % rectal grams ointment (Preparation H) polyethylene glycol 3350 17 17 g PO BID #119 grams 08/17/23 gram/dose oral powder (Miralax) diphenhydramine HCl 25 mg tablet 25 mg PO TID PRN Pruritus #20 tabs 08/25/23 (Benadryl Allergy) phenylephrine 0.25 %-cocoa butter 1 supp NC BID #24 ea 08/25/23 88.44 % rectal suppository (Preparation H(phenyleph,cocoa buttr)) phenylephrine 0.25 %-mineral oil 1 appl NC BID #28 grams 08/25/23 14 %-petrolatm 74.9 % rectal ointment (Preparation H) fluticasone propionate 50 2 spray intranasal DAILY #16 grams 09/16/23 mcg/actuation nasal spray,suspension (Flonase Allergy Relief) loratadine 10 mg tablet 10 mg PO DAILY #30 tabs 09/16/23 menthol 0.44 %-zinc oxide 20.6 % 1 appl topical QID PRN skin 09/22/23 topical ointment (Calmoseptine) irritation #113 grams cephalexin 500 mg capsule 500 mg PO TID #15 caps 10/20/23 nitrofurantoin 100 mg PO Q12H 5 days #10 caps 10/20/23 monohydrate/macrocrystals 100 mg capsule (Macrobid) acetaminophen 500 mg tablet 500 mg PO Q6H PRN pain #30 tabs 12/02/23 (Tylenol Extra Strength) carbamide peroxide 6.5 % ear drops 5 drp otic (ear) left DAILY 4 days 12/04/23 (Debrox) #15 mL Allergies Allergy/AdvReac Type Severity Reaction Status Date / Time penicillin G [Penicillin G] Allergy Severe ITCHY/RASH Verified 12/04/23 00:50 Sulfa (Sulfonamide Allergy Severe ITCHY,RASH, Verified 12/04/23 00:50 Antibiotics) rash [Sulfa (Sulfonamides)] trimethoprim [From Bactrim] Allergy Severe HIVES Verified 12/04/23 00:50 Review of Systems Review of Systems: Pertinent positives and negatives as stated in [facility] Past Medical History Source: nursing notes reviewed Medical History Bleeding hemorrhoids Essential hypertension PVC (premature ventricular contraction) PAC (premature atrial contraction) SVT (supraventricular tachycardia) Chronic constipation High blood pressure Vertigo Dementia Arthritis Anxiety Surgical History No pertinent past surgical history Social History Social History Alcohol intake: never Patient Tobacco Use Status: Never used Tobacco Smoked in Last 30 Days: No Use of substances other than those prescribed or required for medical reasons: No Advance Directives: No Advance Directives Information Provided: No Physical Exam Vital Signs: Vital Signs: Last Vital Signs Temp 98.5 F 12/04/23 00:46 Pulse 105 H 12/04/23 00:46 BP 169/88 H 12/04/23 00:46 Pulse Ox 99 12/04/23 00:46 O2 Del Method Room Air 12/04/23 00:46 BMI result Body Mass Index 27.7 VITAL SIGNS: Reviewed. GENERAL: Well developed, well nourished, in no acute distress. HEAD: Normocephalic/atraumatic EYES: PERRLA, EOMI, ecchymosis (old) at right periorbital EARS: Ext canals without abnormality, cerumen (soft) noted in LEFT ear NOSE: Nares patent bilateral OROPHARYNX: no oral lesions noted, posterior pharynx clear NECK: Supple, no adenopathy LUNGS: Normal breath sounds. No adventitious sounds or accessory muscle use. SpO2<99> CARDIOVASCULAR: Regular rate and rhythm without noted murmurs ABDOMEN: Soft, non-tender, non-distended with bowel sounds. MUSCULOSKELETAL: No tenderness, deformities, or effusions noted on gross inspection. EXTREMITIES: No cyanosis, clubbing or edema. SKIN: Inspection of the skin reveals no rashes NEUROLOGIC: Alert and oriented x 4. Strength and sensation to light touch were grossly intact x 4. Medical Decision Making Medical Decision Making MDM Narrative: 78-year-old female who arrives via EMS with history and clinical presentation of left ear discomfort but no associated symptoms to suggest acute infection, clinical exam identifies soft cerumen within the proximal external canal and likely able to evacuate with continued use of Debrox, patient will be provided with a prescription for this medication and is otherwise discharged home in stable condition. Differential Diagnosis Differential Diagnoses: The differential diagnosis associated with the presentation includes Please see the discussion above Admission/Observation Consideration of admission/observation: Escalation of care including admission/observation considered Please see the discussion above Discharge Plan Discharge Clinical Impression: Left ear impacted cerumen Patient Disposition: Home, Self-Care Instructions: Earache (ED) Additional Instructions: 1. Reanudar los medicamentos caseros seg?n lo recetado. 2. Le he recetado gotas para los o?dos para ayudar a disolver el cerumen. Util?celas seg?n las indicaciones. 3. Steve un seguimiento con clark m?dico de atenci?n primaria en los pr?ximos 1 o 2 d?as. Regrese a la italo de emergencias si los s?ntomas empeoran. 1. Resume home medications as prescribed. 2. I have given you a prescription for ear drops to help dissolve the ear wax, please use this as directed. 3. Follow-up with your primary care doctor in the next 1-2 days. Return to the ER for any worsening symptoms. Prescriptions: New Debrox 6.5 % drops 5 drp otic (ear) left DAILY 4 Days Qty: 15 0RF No Action escitalopram oxalate 10 mg tablet 10 mg PO DAILY Qty: 30 1RF metoprolol succinate 50 mg tablet extended release 24 hr 50 mg PO DAILY Qty: 90 2RF aspirin 81 mg tablet,delayed release (DR/EC) 81 mg PO BEDTIME Qty: 90 2RF polyethylene glycol 3350 [Miralax] 17 gram/dose powder 17 g PO DAILY PRN (Reason: constipation) Qty: 238 0RF lisinopril 40 mg tablet 40 mg PO QPM Qty: 90 0RF Rx Instructions: Please call and schedule cardiology appt acetaminophen 325 mg capsule 325 mg PO QID PRN (Reason: fever or pain) Qty: 30 0RF melatonin 10 mg tablet extended release 10 mg PO .nightly Qty: 5 0RF metoprolol succinate 50 mg tablet extended release 24 hr 50 mg PO DAILY Qty: 14 0RF ciprofloxacin-dexamethasone [Ciprodex] 0.3-0.1 % drops,suspension 4 drp otic (ears) BID 7 Days 0RF alprazolam 0.5 mg Tablet 0.5 mg PO TID PRN (Reason: Anxiety) hydroxyzine HCl 50 mg Tablet 50 mg PO TID PRN (Reason: Anxiety) mirtazapine 45 mg Tablet 45 mg PO BEDTIME multivitamin Capsule 1 cap PO DAILY sertraline 50 mg Tablet 50 mg PO BEDTIME aripiprazole 2 mg Tablet 2 mg PO BEDTIME cholecalciferol (vitamin D3) 25 mcg (1,000 unit) Tablet 25 mcg PO BID omeprazole 20 mg Tablet,Delayed Release (Dr/Ec) 20 mg PO DAILY linaclotide 145 mcg Capsule 145 mcg PO DAILY diphenhydramine HCl [Benadryl] 25 mg capsule 25 mg PO BEDTIME Qty: 7 0RF cefdinir 300 mg capsule 300 mg PO BID 10 Days Qty: 20 0RF ondansetron HCl [Zofran] 4 mg tablet 4 mg PO Q8H PRN (Reason: nausea and vomiting) Qty: 14 0RF cefuroxime axetil 500 mg tablet 500 mg PO BID 7 Days Qty: 14 0RF meclizine 25 mg tablet 25 mg PO TID PRN (Reason: dizziness) Qty: 10 0RF levofloxacin 500 mg tablet 500 mg PO DAILY 7 Days Qty: 7 0RF cefuroxime axetil 500 mg tablet 500 mg PO BID 10 Days Qty: 20 0RF alprazolam 0.25 mg tablet 0.25 mg PO QID Qty: 7 0RF levofloxacin 500 mg tablet 500 mg PO DAILY Qty: 6 0RF Rx Instructions: start on 08/26 ofloxacin 0.3 % drops 10 drp otic (ears) DAILY 7 Days Qty: 5 0RF Rx Instructions: can substitute eye drops if necessary hydrocortisone 2.5 % cream with perineal applicator 1 appl NC BEDTIME PRN (Reason: hemorrhoids) Qty: 30 0RF Hemorrhoidal(PE-min oil-emma) 0.25-14-74.9 % ointment 1 appl NC BID PRN (Reason: hemorrhoids) Qty: 56 0RF polyethylene glycol 3350 [Miralax] 17 gram/dose powder 17 g PO BID Qty: 119 0RF docusate sodium [Colace] 100 mg capsule 100 mg PO BID PRN (Reason: Constipation) Qty: 14 0RF ofloxacin 0.3 % drops 5 drp otic (ear) left BID 7 Days Qty: 5 0RF alprazolam 0.25 mg tablet 0.25 mg PO TID PRN (Reason: anxiety) Qty: 7 0RF alprazolam [Xanax] 0.5 mg tablet 0.5 mg PO BEDTIME PRN (Reason: anxiety) Qty: 7 0RF metoprolol succinate 50 mg tablet extended release 24 hr 50 mg PO DAILY Qty: 7 0RF Preparation H 0.25-14-74.9 % ointment 1 appl NC BID PRN (Reason: hemorrhoids) Qty: 57 0RF polyethylene glycol 3350 [Miralax] 17 gram/dose powder 17 g PO BID Qty: 119 0RF Preparation H 0.25-14-74.9 % ointment 1 appl NC BID Qty: 28 0RF Preparation H(pe,cb) 0.25-88.44 % suppository 1 supp NC BID Qty: 24 0RF diphenhydramine HCl [Benadryl Allergy] 25 mg tablet 25 mg PO TID PRN (Reason: Pruritus) Qty: 20 0RF loratadine 10 mg tablet 10 mg PO DAILY Qty: 30 0RF fluticasone propionate [Flonase Allergy Relief] 50 mcg/actuation spray,suspension 2 spray intranasal DAILY Qty: 16 0RF Rx Instructions: administer into each nostril alprazolam 0.25 mg tablet 0.25 mg PO TID PRN (Reason: anxiety) Qty: 3 0RF ondansetron 4 mg tablet,disintegrating 4 mg PO Q8H PRN (Reason: nausea and vomiting) Qty: 10 0RF hydrocortisone 1 % cream 1 appl topical BID PRN (Reason: rash) Qty: 28.4 0RF nitrofurantoin monohyd/m-cryst [Macrobid] 100 mg capsule 100 mg PO Q12H 5 Days Qty: 10 0RF Rx Instructions: must administer with a meal/food cephalexin 500 mg capsule 500 mg PO TID Qty: 15 0RF acetaminophen [Tylenol Extra Strength] 500 mg tablet 500 mg PO Q6H PRN (Reason: pain) Qty: 30 0RF Calmoseptine 0.44-20.6 % ointment 1 appl topical QID PRN (Reason: skin irritation) Qty: 113 0RF magnesium citrate Solution 150 ml PO DAILY PRN (Reason: constipation) Qty: 296 0RF Rx Instructions: take only when needed for constipation hydrocortisone acetate [Anucort-HC] 25 mg suppository 25 mg NC BID Qty: 12 3RF zolpidem [Ambien] 5 mg tablet 5 mg PO BEDTIME PRN (Reason: sleep) Qty: 2 0RF zolpidem [Ambien] 5 mg tablet 5 mg PO BEDTIME PRN (Reason: sleep) Qty: 2 0RF menthol-zinc oxide [Calmoseptine] 0.44-20.6 % ointment 1 appl topical QID PRN (Reason: skin irritation) Qty: 113 0RF Referrals: Name,MD Nitin [Primary Care Provider] - Print Language: Frisian
[2023-12-04 02:36] VITALS: BP 166/84; PULSE 75; RESP 20; O2SAT 98
--- NOTE | 2023-12-04 02:53 | PC.NURSE ---
PT a & O x 3, being discharged and offered ride at 07:00, pt declined multiple times. Will find her own ride home.
== END 2023-12-04 02:54 | disposition home or self-care (01) ==
PROVIDERS: Emergency Provider Student in an Organized Health Care Education/Training Program; PCP Internal Medicine Geriatric Medicine
DX: H92.02 Otalgia, left ear (principal); H61.22 Impacted cerumen, left ear
CPT/HCPCS: 99283; 99284

== ENCOUNTER 2024-01-03 04:19 | Emergency (ER) | payer OTHER, SELFPAY ==
--- NOTE | 2024-01-03 | ECG_ITS ---
Test Reason : CHEST DISCOMFORT Blood Pressure : / mmHG Vent. Rate : 079 BPM Atrial Rate : 079 BPM P-R Int : 190 ms QRS Dur : 106 ms QT Int : 400 ms P-R-T Axes : 047 -27 010 degrees QTc Int : 458 ms Normal sinus rhythm Moderate voltage criteria for LVH, may be normal variant ( R in aVL , [place] product ) Borderline ECG When compared with ECG of 20-OCT-2023 05:02, Nonspecific T wave abnormality no longer evident in Lateral leads Referred By: Generic ED Physician Electronically Signed By:KATRINA PARSONS MD
[2024-01-03 04:24] VITALS: BP 150/90; PULSE 74; O2SAT 97
[2024-01-03 04:30] VITALS: BP 133/82; PULSE 76; RESP 12; TEMP 36.7; BMI 28.0
[2024-01-03 06:09] VITALS: BP 119/69; PULSE 69; RESP 20
--- NOTE | 2024-01-03 07:03 | PC.NURSE ---
awake and alert. skin pwd, resp even and non labored. speaking in full, clear sentences. NSR via tele. denies chest pain or palpitations. c/o headache. awaiting provider eval
[2024-01-03 07:23] LABS: MANUAL DIFF FLAG NO
[2024-01-03 07:27] LABS: Basophils Absolute Auto 0.1 X10*3/uL (0.0-0.2); Basophils Percent Auto 0.7 % (0-2); Eosinophils Absolute Auto 0.1 X10*3/uL (0.0-0.4); Eosinophils Percent Auto 1.9 % (0-4); Hematocrit 35.4 % (37.0-47.0); Hemoglobin 11.8 g/dl (12.0-16.0); Imm Gran Abs Auto 0.05 X10*3/uL (0.00-0.03); Imm Gran Pct Auto 0.7 % (0.0-0.4); Lymphocytes Absolute Auto 1.9 X10*3/uL (1.2-4.9); Lymphocytes Percent Auto 27.3 % (20-40); Mean Corpuscular HGB Conc 33.3 g/dl (31.0-35.0); Mean Corpuscular Hemoglobin 28.5 pg (27.0-33.0); Mean Corpuscular Volume 85.5 fL (80.0-98.0); Mean Platelet Volume 8.3 fL (9.4-12.3); Monocytes Absolute Auto 0.7 X10*3/uL (0.1-1.2); Monocytes Percent Auto 9.6 % (2-11); Neutrophils Absolute Auto 4.1 x10*3/uL (2.0-8.3); Neutrophils Percent Auto 59.8 % (45-73); Platelet Count 304 X10*3/uL (160-400); Red Blood Count 4.14 X10*6/uL (4.20-5.50); Red Cell Distribution Width 13.1 % (11.0-16.0); White Blood Count 6.9 X10*3/uL (4.8-10.8)
--- NOTE | 2024-01-03 07:29 | ED_ITS ---
HPI - Arrhythmia/Palpitations General Chief Complaint: Arrhythmia/Palpitations Stated Complaint: sore throat/chest discomfort Time Seen by Provider: 01/03/24 07:03 Source: patient Mode of arrival: ambulatory Limitations: no limitations History of Present Illness HPI narrative: This is an 78-year-old female history of SVT, hemorrhoids, hypertension, anxiety, dementia presenting to the emergency department for evaluation of I can feel my heart ticking she reports that this started when she 1st came in a few hours ago however now it has gotten much better and she does not feel her heart ticking . Initially she reported to nursing that she was having a sore throat however she denies this to me. She states sometimes this happens when she is anxious. She is requesting something to eat because she is feeling better. Patient denies chest pain, shortness of breath, nausea, vomiting, abdominal pain, headache, vision changes, dizziness, weakness, fevers, chills, headache. Related Data Home Medications Medication Instructions Recorded Confirmed alprazolam 0.5 mg tablet 0.5 mg PO TID PRN Anxiety 08/09/20 09/22/23 aripiprazole 2 mg tablet 2 mg PO BEDTIME 08/09/20 09/22/23 cholecalciferol (vitamin D3) 25 25 mcg PO BID 08/09/20 09/22/23 mcg (1,000 unit) tablet hydroxyzine HCl 50 mg tablet 50 mg PO TID PRN Anxiety 08/09/20 09/22/23 linaclotide 145 mcg capsule 145 mcg PO DAILY 08/09/20 09/22/23 mirtazapine 45 mg tablet 45 mg PO BEDTIME 08/09/20 09/22/23 multivitamin 1 cap PO DAILY 08/09/20 09/22/23 omeprazole 20 mg tablet,delayed 20 mg PO DAILY 08/09/20 09/22/23 release sertraline 50 mg tablet 50 mg PO BEDTIME 08/09/20 09/22/23 Previous Rx's Medication Instructions Recorded escitalopram oxalate 10 mg tablet 10 mg PO DAILY #30 tabs 09/06/20 acetaminophen 325 mg capsule 325 mg PO QID PRN fever or pain 09/16/20 #30 caps aspirin 81 mg tablet,delayed 81 mg PO BEDTIME #90 tabs 09/28/20 release metoprolol succinate 50 mg 50 mg PO DAILY #90 tabs 09/28/20 tablet,extended release 24 hr menthol 0.44 %-zinc oxide 20.6 % 1 appl topical QID PRN skin 12/13/20 topical ointment (Calmoseptine) irritation #113 grams magnesium citrate 150 ml PO DAILY PRN constipation 12/14/20 #296 mL diphenhydramine HCl 25 mg capsule 25 mg PO BEDTIME insomnia #7 caps 12/25/20 (Benadryl) melatonin 10 mg tablet,extended 10 mg PO .nightly #5 tabs 01/07/21 release cefdinir 300 mg capsule 300 mg PO BID Otitis media 10 days 04/14/21 #20 caps ondansetron HCl 4 mg tablet 4 mg PO Q8H PRN nausea and 04/14/21 (Zofran) vomiting #14 tabs metoprolol succinate 50 mg 50 mg PO DAILY #14 tabs 05/22/21 tablet,extended release 24 hr ciprofloxacin 0.3 %-dexamethasone 4 drp otic (ears) BID 7 days 05/26/21 0.1 % ear drops,suspension (Ciprodex) polyethylene glycol 3350 17 17 g PO DAILY PRN constipation 07/31/21 gram/dose oral powder (Miralax) #238 grams hydrocortisone acetate 25 mg 25 mg MA BID #12 ea 08/01/21 rectal suppository (Anucort-HC) cefuroxime axetil 500 mg tablet 500 mg PO BID 7 days #14 tabs 09/01/21 meclizine 25 mg tablet 25 mg PO TID PRN dizziness #10 tabs 09/01/21 zolpidem 5 mg tablet (Ambien) 5 mg PO BEDTIME PRN sleep #2 tabs 10/29/21 zolpidem 5 mg tablet (Ambien) 5 mg PO BEDTIME PRN sleep #2 tabs 10/29/21 levofloxacin 500 mg tablet 500 mg PO DAILY 7 days #7 tabs 07/23/22 levofloxacin 500 mg tablet 500 mg PO DAILY #6 tabs 08/25/22 ofloxacin 0.3 % ear drops 10 drp otic (ears) DAILY 7 days #5 08/25/22 mL hydrocortisone 2.5 % topical cream 1 appl MA BEDTIME PRN hemorrhoids 09/20/22 with perineal applicator #30 grams docusate sodium 100 mg capsule 100 mg PO BID PRN Constipation #14 12/06/22 (Colace) caps phenylephrine 0.25 %-mineral oil 1 appl MA BID PRN hemorrhoids #56 12/06/22 14 %-petrolatm 74.9 % rectal grams ointment (Hemorrhoidal(phenyleph-min oil-petrolat)) polyethylene glycol 3350 17 17 g PO BID #119 grams 12/06/22 gram/dose oral powder (Miralax) cefuroxime axetil 500 mg tablet 500 mg PO BID 10 days #20 tabs 12/16/22 alprazolam 0.25 mg tablet 0.25 mg PO QID #7 tabs 01/04/23 ofloxacin 0.3 % ear drops 5 drp otic (ear) left BID 7 days 01/06/23 #5 mL alprazolam 0.25 mg tablet 0.25 mg PO TID PRN anxiety #7 tabs 01/11/23 alprazolam 0.25 mg tablet 0.25 mg PO TID PRN anxiety #3 tabs 02/02/23 alprazolam 0.5 mg tablet (Xanax) 0.5 mg PO BEDTIME PRN anxiety #7 04/20/23 tabs metoprolol succinate 50 mg 50 mg PO DAILY #7 tabs 05/18/23 tablet,extended release 24 hr lisinopril 40 mg tablet 40 mg PO QPM #90 tabs 05/22/23 ondansetron 4 mg disintegrating 4 mg PO Q8H PRN nausea and 07/06/23 tablet vomiting #10 tabs hydrocortisone 1 % topical cream 1 appl topical BID PRN rash #28.4 08/03/23 grams phenylephrine 0.25 %-mineral oil 1 appl MA BID PRN hemorrhoids #57 08/17/23 14 %-petrolatm 74.9 % rectal grams ointment (Preparation H) polyethylene glycol 3350 17 17 g PO BID #119 grams 08/17/23 gram/dose oral powder (Miralax) diphenhydramine HCl 25 mg tablet 25 mg PO TID PRN Pruritus #20 tabs 08/25/23 (Benadryl Allergy) phenylephrine 0.25 %-cocoa butter 1 supp MA BID #24 ea 08/25/23 88.44 % rectal suppository (Preparation H(phenyleph,cocoa buttr)) phenylephrine 0.25 %-mineral oil 1 appl MA BID #28 grams 08/25/23 14 %-petrolatm 74.9 % rectal ointment (Preparation H) fluticasone propionate 50 2 spray intranasal DAILY #16 grams 09/16/23 mcg/actuation nasal spray,suspension (Flonase Allergy Relief) loratadine 10 mg tablet 10 mg PO DAILY #30 tabs 09/16/23 menthol 0.44 %-zinc oxide 20.6 % 1 appl topical QID PRN skin 09/22/23 topical ointment (Calmoseptine) irritation #113 grams cephalexin 500 mg capsule 500 mg PO TID #15 caps 10/20/23 nitrofurantoin 100 mg PO Q12H 5 days #10 caps 10/20/23 monohydrate/macrocrystals 100 mg capsule (Macrobid) acetaminophen 500 mg tablet 500 mg PO Q6H PRN pain #30 tabs 12/02/23 (Tylenol Extra Strength) carbamide peroxide 6.5 % ear drops 5 drp otic (ear) left DAILY 4 days 12/04/23 (Debrox) #15 mL Allergies Allergy/AdvReac Type Severity Reaction Status Date / Time penicillin G [Penicillin G] Allergy Severe ITCHY/RASH Verified 12/04/23 00:50 Sulfa (Sulfonamide Allergy Severe ITCHY,RASH, Verified 12/04/23 00:50 Antibiotics) rash [Sulfa (Sulfonamides)] trimethoprim [From Bactrim] Allergy Severe HIVES Verified 12/04/23 00:50 Review of Systems 2 Review of Systems: Yes all other systems are reviewed and are negative PMFSH Past Medical History Attestation statement: The following information was validated with the patient. Source: old records reviewed and nursing notes reviewed Medical History Bleeding hemorrhoids Essential hypertension PVC (premature ventricular contraction) PAC (premature atrial contraction) SVT (supraventricular tachycardia) Chronic constipation High blood pressure Vertigo Dementia Arthritis Anxiety Surgical History No pertinent past surgical history Social History Social History Alcohol intake: never Patient Tobacco Use Status: Never used Tobacco Advance Directives: No Advance Directives Information Provided: Yes Physical Exam 2 Vital Signs: Vital Signs: Last Vital Signs Temp 98.1 F 01/03/24 04:30 Pulse 69 01/03/24 06:09 Resp 20 01/03/24 06:09 BP 119/69 01/03/24 06:09 O2 Del Method Room Air 01/03/24 04:30 BMI result Body Mass Index 28.0 Vital signs state Appearance: Alert.? Oriented X3.? No acute distress.? Head: Normocephalic, atraumatic, no step-offs or deformities Eyes: Pupils equal, round and reactive to light.? Neck: Normal inspection.? Neck supple.? CVS: Normal heart rate and rhythm.? Pulses normal.? Respiratory: No respiratory distress.? Breath sounds normal.? Abdomen: Soft and nontender.? Skin: Skin warm and dry.? Normal skin color.? Normal skin turgor.? Extremities: No lower extremity edema.? No calf ttp. 5/5 strength to bilateral upper and lower extremities Neuro: Oriented X 3.? No motor deficit.? No sensory deficit. CN 2-12 intact Course Reevaluation(s) Reevaluation #1: Patient's CBC unremarkable. EKG no ST elevations or inversions concerning for ischemia unremarkable. Chemistry pending. Patient feeling better. As long as her chemistry looks good patient can be discharged home. Time: 07:33 Reevaluation #2: Chemistry unremarkable. Troponin negative. Nonischemic EKG. Patient feeling well without complaints. Educated patient on diagnosis and treatment plan, answered all question, patient verbalizes understanding. At this time patient will be discharged home, advised to return with new or worsening symptoms. Educated on worrisome signs and symptoms and when to return. At this time I feel comfortable discharge home. Time: 08:43 Medical Decision Making Medical Decision Making MDM Narrative: 78-year-old female well known to this facility presented with palpitations and discomfort in her throat admits to being anxious however all symptoms have resolved at this time. Physical exam benign. Patient well-appearing. Patient eating. Speaking in full sentences controlling secretions well This is likely anxiety. EKG will be done to rule out arrhythmia although unlikely. Unlikely ACS, PE, dissection, acute respiratory distress. Sensation in throat likely secondary to anxiety no signs of pharyngitis, peritonsillar abscess, retropharyngeal abscess, epiglottitis, acute threat to airway. Plan at this time basic labs, EKG patient will likely be disc Differential Diagnosis Differential Diagnoses: The differential diagnosis associated with the presentation includes This is likely anxiety. EKG will be done to rule out arrhythmia although unlikely. Unlikely ACS, PE, dissection, acute respiratory distress. Sensation in throat likely secondary to anxiety no signs of pharyngitis, peritonsillar abscess, retropharyngeal abscess, epiglottitis, acute threat to airway. Admission/Observation Consideration of admission/observation: Escalation of care including admission/observation considered Based off history and physical exam patient will likely be discharge Lab Data MDM Lab Attestation statement: I reviewed the patient's lab results. 01/03/24 07:17 01/03/24 07:17 Labs: Lab Results 01/03/24 Range/Units 07:17 WBC 6.9 (4.8-10.8) X10*3/uL RBC 4.14 L (4.20-5.50) X10*6/uL Hgb 11.8 L (12.0-16.0) g/dl Hct 35.4 L (37.0-47.0) % MCV 85.5 (80.0-98.0) fL MCH 28.5 (27.0-33.0) pg MCHC 33.3 (31.0-35.0) g/dl RDW 13.1 (11.0-16.0) % Plt Count 304 (160-400) X10*3/uL MPV 8.3 L (9.4-12.3) fL Immature Gran % (Auto) 0.7 H (0.0-0.4) % Neut % (Auto) 59.8 (45-73) % Lymph % (Auto) 27.3 (20-40) % [place] % (Auto) 9.6 (2-11) % Eos % (Auto) 1.9 (0-4) % Baso % (Auto) 0.7 (0-2) % Lymph # (Auto) 1.9 (1.2-4.9) X10*3/uL [place] # (Auto) 0.7 (0.1-1.2) X10*3/uL Eos # (Auto) 0.1 (0.0-0.4) X10*3/uL Baso # (Auto) 0.1 (0.0-0.2) X10*3/uL Abs Immat Gran (auto) 0.05 H (0.00-0.03) X10*3/uL Absolute Neuts (auto) 4.1 (2.0-8.3) x10*3/uL Absolute Nucleated RBC 0.000 (0.0-0.012) X10*3/uL Nucleated RBC % (auto) 0.0 (0.0-0.2) /100WBC Sodium 140 (135-145) mmol/L Potassium 4.7 (3.3-5.1) mmol/L Chloride 102 (96-108) mmol/L Carbon Dioxide 28 (22-29) mmol/L Anion Gap 15 (12-20) BUN 19 H (9-16) mg/dL Creatinine 0.99 (0.5-1.4) mg/dL Estim Creat Clear Calc 51.3 Estimated GFR 54 Random Glucose 92 (60-115) mg/dL Calcium 9.2 (8.4-10.2) mg/dL Total Bilirubin 0.2 (0.0-1.0) mg/dL AST 29 (5-31) U/L ALT 25 (0-31) U/L Alkaline Phosphatase 69 (39-117) U/L Troponin I High Sens < 2.7 (<3.5-17.0) ng/L Total Protein 8.2 H (6.5-8.0) g/dL Albumin 4.2 (3.5-5.0) g/dL S. pyogenes GrpA MYAH Negative (Negative) Independent Interpretation I performed an independent interpretation of an: EKG (Ventricular rate of 79 MA normal, QRS normal, QT/QTC normal. No ST elevations or inversions concerning for acute ischemia) External Record Review External record reviewed: Inpatient record, Office record, Outpatient record, Prior outpatient labs and Outside ED record Tests considered The following testing was considered but not selected: Consider chest x-ray ever no chest pain or shortness of breath. Patient has had multiple imaging in the past normal. Chronic Conditions Patient?s care impacted by: Other (Anxiety, hypertension, PVCs, SVT.) Social Determinants Patient?s care significantly limited by Social Determinants of Health including: Other Social Determinant of Health Critical Care Time Critical Care Time Critical Care Time: No Discharge Plan Discharge Clinical Impression: Palpitations, Anxiety Patient Disposition: Home, Self-Care Instructions: Heart Palpitations (DC), Anxiety (ED) Additional Instructions: Take your medications as prescribed. If you were prescribed antibiotics today, it is important that you take your medication to their entirety, do not skip any doses, do not finish them early. Follow-up with your primary care provider this week. Return to the emergency department with new or worsening symptoms. Such as fevers, chills, chest pain, shortness of breath, nausea, vomiting, dizziness, headache, vision changes, lethargy In case of emergency call 911 Prescriptions: No Action escitalopram oxalate 10 mg tablet 10 mg PO DAILY Qty: 30 1RF metoprolol succinate 50 mg tablet extended release 24 hr 50 mg PO DAILY Qty: 90 2RF aspirin 81 mg tablet,delayed release (DR/EC) 81 mg PO BEDTIME Qty: 90 2RF polyethylene glycol 3350 [Miralax] 17 gram/dose powder 17 g PO DAILY PRN (Reason: constipation) Qty: 238 0RF lisinopril 40 mg tablet 40 mg PO QPM Qty: 90 0RF Rx Instructions: Please call and schedule cardiology appt acetaminophen 325 mg capsule 325 mg PO QID PRN (Reason: fever or pain) Qty: 30 0RF melatonin 10 mg tablet extended release 10 mg PO .nightly Qty: 5 0RF metoprolol succinate 50 mg tablet extended release 24 hr 50 mg PO DAILY Qty: 14 0RF ciprofloxacin-dexamethasone [Ciprodex] 0.3-0.1 % drops,suspension 4 drp otic (ears) BID 7 Days 0RF alprazolam 0.5 mg Tablet 0.5 mg PO TID PRN (Reason: Anxiety) hydroxyzine HCl 50 mg Tablet 50 mg PO TID PRN (Reason: Anxiety) mirtazapine 45 mg Tablet 45 mg PO BEDTIME multivitamin Capsule 1 cap PO DAILY sertraline 50 mg Tablet 50 mg PO BEDTIME aripiprazole 2 mg Tablet 2 mg PO BEDTIME cholecalciferol (vitamin D3) 25 mcg (1,000 unit) Tablet 25 mcg PO BID omeprazole 20 mg Tablet,Delayed Release (Dr/Ec) 20 mg PO DAILY linaclotide 145 mcg Capsule 145 mcg PO DAILY diphenhydramine HCl [Benadryl] 25 mg capsule 25 mg PO BEDTIME Qty: 7 0RF cefdinir 300 mg capsule 300 mg PO BID 10 Days Qty: 20 0RF ondansetron HCl [Zofran] 4 mg tablet 4 mg PO Q8H PRN (Reason: nausea and vomiting) Qty: 14 0RF cefuroxime axetil 500 mg tablet 500 mg PO BID 7 Days Qty: 14 0RF meclizine 25 mg tablet 25 mg PO TID PRN (Reason: dizziness) Qty: 10 0RF levofloxacin 500 mg tablet 500 mg PO DAILY 7 Days Qty: 7 0RF cefuroxime axetil 500 mg tablet 500 mg PO BID 10 Days Qty: 20 0RF alprazolam 0.25 mg tablet 0.25 mg PO QID Qty: 7 0RF levofloxacin 500 mg tablet 500 mg PO DAILY Qty: 6 0RF Rx Instructions: start on 08/26 ofloxacin 0.3 % drops 10 drp otic (ears) DAILY 7 Days Qty: 5 0RF Rx Instructions: can substitute eye drops if necessary hydrocortisone 2.5 % cream with perineal applicator 1 appl MA BEDTIME PRN (Reason: hemorrhoids) Qty: 30 0RF Hemorrhoidal(PE-min oil-emma) 0.25-14-74.9 % ointment 1 appl MA BID PRN (Reason: hemorrhoids) Qty: 56 0RF polyethylene glycol 3350 [Miralax] 17 gram/dose powder 17 g PO BID Qty: 119 0RF docusate sodium [Colace] 100 mg capsule 100 mg PO BID PRN (Reason: Constipation) Qty: 14 0RF ofloxacin 0.3 % drops 5 drp otic (ear) left BID 7 Days Qty: 5 0RF alprazolam 0.25 mg tablet 0.25 mg PO TID PRN (Reason: anxiety) Qty: 7 0RF alprazolam [Xanax] 0.5 mg tablet 0.5 mg PO BEDTIME PRN (Reason: anxiety) Qty: 7 0RF metoprolol succinate 50 mg tablet extended release 24 hr 50 mg PO DAILY Qty: 7 0RF Preparation H 0.25-14-74.9 % ointment 1 appl MA BID PRN (Reason: hemorrhoids) Qty: 57 0RF polyethylene glycol 3350 [Miralax] 17 gram/dose powder 17 g PO BID Qty: 119 0RF Preparation H 0.25-14-74.9 % ointment 1 appl MA BID Qty: 28 0RF Preparation H(pe,cb) 0.25-88.44 % suppository 1 supp MA BID Qty: 24 0RF diphenhydramine HCl [Benadryl Allergy] 25 mg tablet 25 mg PO TID PRN (Reason: Pruritus) Qty: 20 0RF loratadine 10 mg tablet 10 mg PO DAILY Qty: 30 0RF fluticasone propionate [Flonase Allergy Relief] 50 mcg/actuation spray,suspension 2 spray intranasal DAILY Qty: 16 0RF Rx Instructions: administer into each nostril Debrox 6.5 % drops 5 drp otic (ear) left DAILY 4 Days Qty: 15 0RF alprazolam 0.25 mg tablet 0.25 mg PO TID PRN (Reason: anxiety) Qty: 3 0RF ondansetron 4 mg tablet,disintegrating 4 mg PO Q8H PRN (Reason: nausea and vomiting) Qty: 10 0RF hydrocortisone 1 % cream 1 appl topical BID PRN (Reason: rash) Qty: 28.4 0RF nitrofurantoin monohyd/m-cryst [Macrobid] 100 mg capsule 100 mg PO Q12H 5 Days Qty: 10 0RF Rx Instructions: must administer with a meal/food cephalexin 500 mg capsule 500 mg PO TID Qty: 15 0RF acetaminophen [Tylenol Extra Strength] 500 mg tablet 500 mg PO Q6H PRN (Reason: pain) Qty: 30 0RF Calmoseptine 0.44-20.6 % ointment 1 appl topical QID PRN (Reason: skin irritation) Qty: 113 0RF magnesium citrate Solution 150 ml PO DAILY PRN (Reason: constipation) Qty: 296 0RF Rx Instructions: take only when needed for constipation hydrocortisone acetate [Anucort-HC] 25 mg suppository 25 mg MA BID Qty: 12 3RF zolpidem [Ambien] 5 mg tablet 5 mg PO BEDTIME PRN (Reason: sleep) Qty: 2 0RF zolpidem [Ambien] 5 mg tablet 5 mg PO BEDTIME PRN (Reason: sleep) Qty: 2 0RF menthol-zinc oxide [Calmoseptine] 0.44-20.6 % ointment 1 appl topical QID PRN (Reason: skin irritation) Qty: 113 0RF Referrals: Physician,Unknown J [Primary Care Provider] - 2 days Interventions: ED Discharge Assessment Last Done: 01/03/24 08:11 Discharge Date/Time: 01/03/24 08:12
[2024-01-03 07:35] LABS: IDNOW Serial# 08D9AD1C; Strep A Nucleic Acid Negative (Negative)
[2024-01-03 07:57] LABS: Alanine Aminotransferase 25 U/L (0-31); Albumin Level 4.2 g/dL (3.5-5.0); Alkaline Phosphatase 69 U/L (39-117); Anion Gap 15 (12-20); Aspartate Amino Transferase 29 U/L (5-31); Bilirubin Total 0.2 mg/dL (0.0-1.0); Blood Urea Nitrogen 19 mg/dL (9-16); Calcium 9.2 mg/dL (8.4-10.2); Carbon Dioxide 28 mmol/L (22-29); Chloride 102 mmol/L (96-108); Creatinine Clr Calc Pharmacy 51.3; Estimated Glomerular Filt Rate 54; Glucose Random 92 mg/dL (60-115); Potassium 4.7 mmol/L (3.3-5.1); Sodium 140 mmol/L (135-145); Total Protein 8.2 g/dL (6.5-8.0)
[2024-01-03 08:03] LABS: Troponin-I High Sensitivity < 2.7 ng/L (<3.5-17.0)
== END 2024-01-03 08:12 | disposition home or self-care (01) ==
PROVIDERS: Physician Assistant; Emergency Provider Emergency Medicine
DX: R00.2 Palpitations (principal); F41.9 Anxiety disorder, unspecified; R07.9 Chest pain, unspecified; J02.9 Acute pharyngitis, unspecified; I10 Essential (primary) hypertension; F03.90 Unspecified dementia, unspecified severity, without behavioral disturbance, psychotic disturbance, mood disturbance, and anxiety
CPT/HCPCS: 80053; 84484; 85025; 87651; 93005; 99283; 99285

== ENCOUNTER → 2024-01-03 04:37 | Outpatient (BNV) | payer OTHER, SELFPAY | PROVIDERS: Emergency Provider Emergency Medicine; Visit Provider Internal Medicine Cardiovascular Disease | DX: R07.89 Other chest pain (principal) | CPT/HCPCS: 93010 ==

== ENCOUNTER → 2024-01-14 10:13 | Outpatient (BNVA) | payer OTHER, SELFPAY | PROVIDERS: PCP Internal Medicine Geriatric Medicine; Visit Provider Surgery | DX: K64.9 Unspecified hemorrhoids (principal) | CPT/HCPCS: 46600; 99212 ==

== ENCOUNTER 2024-01-14 10:14 | Outpatient (AMB) | payer OTHER, SELFPAY ==
[2024-01-14 10:28] VITALS: BP 140/71; PULSE 82; BMI 28.0
--- NOTE | 2024-01-14 10:28 | MHC.OFFVIS ---
Intake Vital Signs 01/14/24 10:28 Height 5 ft 8 in Weight 184 lb BMI 28.0 BP 140/71 H Blood Pressure Location Rt brachial Position Sitting Pulse 82 Intake Visit Reasons: Hemorrhoids Intake Note: This patient presents for an assessment for hemorrhoids. Pt c/o; reports occasional bleeding after bowel movements when wipes. Medical Equipment Technician Required: Yes Medical Equipment Technician Language: Cardiac/Vascular Sonographer Name: Yves Information Interpreted: non-clinical & clinical Accompanied by: Self / Same As Patient Allergies penicillin G [Penicillin G] Allergy (Severe, Verified 01/19/24 04:27) ITCHY/RASH Sulfa (Sulfonamide Antibiotics) [Sulfa (Sulfonamides)] Allergy (Severe, Verified 01/19/24 04:27) ITCHY,RASH, rash trimethoprim [From Bactrim] Allergy (Severe, Verified 01/19/24 04:27) HIVES Medication List - Last Reconciled 01/20/24 by Dann Khan MD acetaminophen 325 mg PO QID PRN acetaminophen (Tylenol Extra Strength) 500 mg PO Q6H PRN alprazolam 0.5 mg PO TID PRN alprazolam 0.25 mg PO QID alprazolam 0.25 mg PO TID PRN alprazolam 0.25 mg PO TID PRN alprazolam (Xanax) 0.5 mg PO BEDTIME PRN aripiprazole 2 mg PO BEDTIME aspirin 81 mg PO BEDTIME carbamide peroxide 6.5% (Debrox) 5 drps otic (ear) left DAILY 4 days cefdinir 300 mg PO BID 10 days cefuroxime axetil 500 mg PO BID 7 days cefuroxime axetil 500 mg PO BID 10 days cephalexin 500 mg PO TID cholecalciferol (vitamin D3) 25 mcg PO BID ciprofloxacin-dexamethasone 0.3-0.1 % (Ciprodex) 4 drps otic (ears) BID 7 days diphenhydramine HCl (Benadryl) 25 mg PO BEDTIME diphenhydramine HCl (Benadryl Allergy) 25 mg PO TID PRN docusate sodium (Colace) 100 mg PO BID PRN escitalopram oxalate 10 mg PO DAILY fluticasone propionate 50 mcg/actuation (Flonase Allergy Relief) 2 sprays intranasal DAILY hydrocortisone 2.5% 1 appl SC BEDTIME PRN hydrocortisone 1% 1 appl topical BID PRN hydrocortisone acetate (Anucort-HC) 25 mg SC BID hydroxyzine HCl 50 mg PO TID PRN levofloxacin 500 mg PO DAILY levofloxacin 500 mg PO DAILY 7 days linaclotide 145 mcg PO DAILY lisinopril 40 mg PO QPM loratadine 10 mg PO DAILY magnesium citrate 150 mL PO DAILY PRN meclizine 25 mg PO TID PRN melatonin ER 10 mg PO .nightly menthol-zinc oxide 0.44-20.6 % (Calmoseptine) 1 appl topical QID PRN menthol-zinc oxide 0.44-20.6 % (Calmoseptine) 1 appl topical QID PRN metoprolol succinate ER 50 mg PO DAILY metoprolol succinate ER 50 mg PO DAILY metoprolol succinate ER 50 mg PO DAILY mirtazapine 45 mg PO BEDTIME multivitamin 1 cap PO DAILY nitrofurantoin monohyd/m-cryst 100 mg (Macrobid) 100 mg PO Q12H 5 days ofloxacin 0.3% 10 drps otic (ears) DAILY 7 days ofloxacin 0.3% 5 drps otic (ear) left BID 7 days omeprazole 20 mg PO DAILY ondansetron 4 mg PO Q8H PRN ondansetron HCl (Zofran) 4 mg PO Q8H PRN phenyleph-min oil-petrolatum 0.25-14-74.9 % (Hemorrhoidal(phenyleph-min oil-petrolat)) 1 appl SC BID PRN phenyleph-min oil-petrolatum 0.25-14-74.9 % (Preparation H) 1 appl SC BID PRN phenyleph-min oil-petrolatum 0.25-14-74.9 % (Preparation H) 1 appl SC BID phenylephrine-cocoa butter 0.25-88.44 % (Preparation H(phenyleph,cocoa buttr)) 1 supp SC BID polyethylene glycol 3350 (Miralax) 17 grams PO BID polyethylene glycol 3350 (Miralax) 17 grams PO BID polyethylene glycol 3350 (Miralax) 17 grams PO DAILY PRN sertraline 50 mg PO BEDTIME zolpidem (Ambien) 5 mg PO BEDTIME PRN zolpidem (Ambien) 5 mg PO BEDTIME PRN HPI Hemorrhoids HPI Details She is well known to me from previous hemorrhoids. She states that she notices small amounts of blood on wiping once in a while. This is not new to her. She denies any pain or swelling. She has a known history of constipation. She takes Colace for this. [facility] Medical History Bleeding hemorrhoids Essential hypertension PVC (premature ventricular contraction) PAC (premature atrial contraction) SVT (supraventricular tachycardia) Chronic constipation High blood pressure Vertigo Dementia Arthritis Anxiety Surgical History No pertinent past surgical history Social History Alcohol intake: never Patient Tobacco Use Status: Never used Tobacco Smoked in Last 30 Days: No Use of substances other than those prescribed or required for medical reasons: No Advance Directives: No Advance Directives Information Provided: No Review of Systems Const Denies chills and Denies fever(s) Card Denies chest pain, Denies dyspnea and Denies dyspnea on exertion Resp Denies cough, Denies dyspnea and Denies dyspnea on exertion GI Reports hematochezia and Denies change in bowel habits Denies hematuria Musc Denies back pain and Denies limited range of motion Neuro Denies focal weakness and Denies convulsions Psych Denies depression and Denies mood swings Physical Exam Vital Signs: Last Vital Signs Pulse 82 01/14/24 10:28 BP 140/71 H 01/14/24 10:28 BMI result Body Mass Index 28.0 Const Other: Anxious General: comfortable and no acute distress Resp Effort & Inspection: normal respiratory effort Cardio Rate: regular rate GI Other: Rectal exam shows small external hemorrhoids, nonbleeding, nonthrombosed Palpation (GI): Soft to palpation, not firm and nontender Office Procedures Anoscopy She was in sj-knife position. The anoscope was gently inserted. A full examination of the anal canal was done. She had small mixed columns of internal and external hemorrhoids. She did not have any fissures, ulceration, or any lesion. She had good sphincter tone. There was no induration on digital exam. There was no blood seen. [id number] Assessment & Plan Assessment & Plan (1) Bleeding hemorrhoids: Code(s): K64.9 - Unspecified hemorrhoids Plan: She notices small amounts of blood on wiping. This is not new to her. Examination shows non bulky internal external hemorrhoids. I told her that review of her minimal symptoms, I would not recommend proceeding with hemorrhoidectomy. She was advised to avoid straining and constipation. She was comfortable with the plan. Coding Level of Care Code Est Pt Level 3 (96835) Diagnoses Bleeding hemorrhoids K64.9 CPT Codes Details - CPT: 64191-[id number] ([id number])
== END 2024-01-14 10:31 | disposition home or self-care (01) ==
PROVIDERS: PCP Internal Medicine Geriatric Medicine; Visit Provider Surgery
DX: K64.9 Unspecified hemorrhoids (principal); K64.8 Other hemorrhoids
CPT/HCPCS: 46600; 99213

== ENCOUNTER 2024-01-18 05:38 | Emergency (ER) | payer OTHER, SELFPAY ==
--- NOTE | 2024-01-18 | ECG_ITS ---
Test Reason : pelputations Blood Pressure : / mmHG Vent. Rate : 077 BPM Atrial Rate : 077 BPM P-R Int : 180 ms QRS Dur : 102 ms QT Int : 392 ms P-R-T Axes : 048 -23 022 degrees QTc Int : 443 ms Normal sinus rhythm with sinus arrhythmia Moderate voltage criteria for LVH, may be normal variant ( R in aVL , Maycol product ) Borderline ECG When compared with ECG of 03-JAN-2024 04:37, No significant change was found Referred By: Generic ED Physician Electronically Signed By:KATRINA PARSONS MD
[2024-01-18 05:43] VITALS: BP 165/77; PULSE 75; O2SAT 99
[2024-01-18 05:47] VITALS: BMI 34.9
[2024-01-18 05:50] VITALS: BP 125/76; PULSE 79; RESP 17; TEMP 36.9; O2SAT 96
[2024-01-18 06:45] LABS: MANUAL DIFF FLAG NO
[2024-01-18 06:47] LABS: Basophils Absolute Auto 0.1 X10*3/uL (0.0-0.2); Basophils Percent Auto 0.8 % (0-2); Eosinophils Absolute Auto 0.1 X10*3/uL (0.0-0.4); Hemoglobin 11.1 g/dl (12.0-16.0); Imm Gran Abs Auto 0.02 X10*3/uL (0.00-0.03); Imm Gran Pct Auto 0.3 % (0.0-0.4); Lymphocytes Absolute Auto 1.6 X10*3/uL (1.2-4.9); Mean Corpuscular HGB Conc 33.6 g/dl (31.0-35.0); Mean Corpuscular Hemoglobin 27.9 pg (27.0-33.0); Mean Corpuscular Volume 82.9 fL (80.0-98.0); Mean Platelet Volume 8.5 fL (9.4-12.3); Monocytes Absolute Auto 0.6 X10*3/uL (0.1-1.2); Monocytes Percent Auto 9.5 % (2-11); Neutrophils Percent Auto 63.4 % (45-73); Platelet Count 277 X10*3/uL (160-400); Red Blood Count 3.98 X10*6/uL (4.20-5.50); Red Cell Distribution Width 13.2 % (11.0-16.0); White Blood Count 6.2 X10*3/uL (4.8-10.8)
[2024-01-18 07:05] LABS: Anion Gap 13 (12-20); Blood Urea Nitrogen 21 mg/dL (9-16); Calcium 9.1 mg/dL (8.4-10.2); Carbon Dioxide 26 mmol/L (22-29); Chloride 99 mmol/L (96-108); Creatinine Clr Calc Pharmacy 46.3; Estimated Glomerular Filt Rate 57; Glucose Random 98 mg/dL (60-115); Potassium 4.7 mmol/L (3.3-5.1); Sodium 133 mmol/L (135-145)
[2024-01-18 07:06] LABS: B Type Natriuretic Peptide 47 pg/mL (<100)
--- NOTE | 2024-01-18 07:19 | ED.GENADULT ---
HPI - General Adult General Chief complaint: General Medical Stated complaint: TACHY Time Seen by Provider: 01/18/24 06:52 Source: patient Mode of arrival: EMS Limitations: language barrier (Mohawk-speaking) History of Present Illness HPI narrative: Patient is an 78-year-old female who presents to the emergency department via EMS. Reportedly she initially called EMS with complaint of palpitations, upon EMS arrival she was sleeping in her home, they were able to awake her easily. She advised nursing staff that she was here today to have her blood pressure evaluated and to get a sleeping pill. When I have spoken with patient she says ?I feel fine, everything is okay, I go home now, but I need a medicine for sleep until I see my psychiatrist . She denies headache, dizziness, palpitations, chest pain, shortness of breath, nausea, vomiting, abdominal pain, numbness or tingling of her extremities. Related Data Home Medications Medication Instructions Recorded Confirmed alprazolam 0.5 mg tablet 0.5 mg PO TID PRN Anxiety 08/09/20 09/22/23 aripiprazole 2 mg tablet 2 mg PO BEDTIME 08/09/20 09/22/23 cholecalciferol (vitamin D3) 25 25 mcg PO BID 08/09/20 09/22/23 mcg (1,000 unit) tablet hydroxyzine HCl 50 mg tablet 50 mg PO TID PRN Anxiety 08/09/20 09/22/23 linaclotide 145 mcg capsule 145 mcg PO DAILY 08/09/20 09/22/23 mirtazapine 45 mg tablet 45 mg PO BEDTIME 08/09/20 09/22/23 multivitamin 1 cap PO DAILY 08/09/20 09/22/23 omeprazole 20 mg tablet,delayed 20 mg PO DAILY 08/09/20 09/22/23 release sertraline 50 mg tablet 50 mg PO BEDTIME 08/09/20 09/22/23 Previous Rx's Medication Instructions Recorded escitalopram oxalate 10 mg tablet 10 mg PO DAILY #30 tabs 09/06/20 acetaminophen 325 mg capsule 325 mg PO QID PRN fever or pain 09/16/20 #30 caps aspirin 81 mg tablet,delayed 81 mg PO BEDTIME #90 tabs 09/28/20 release metoprolol succinate 50 mg 50 mg PO DAILY #90 tabs 09/28/20 tablet,extended release 24 hr menthol 0.44 %-zinc oxide 20.6 % 1 appl topical QID PRN skin 12/13/20 topical ointment (Calmoseptine) irritation #113 grams magnesium citrate 150 ml PO DAILY PRN constipation 12/14/20 #296 mL diphenhydramine HCl 25 mg capsule 25 mg PO BEDTIME insomnia #7 caps 12/25/20 (Benadryl) melatonin 10 mg tablet,extended 10 mg PO .nightly #5 tabs 01/07/21 release cefdinir 300 mg capsule 300 mg PO BID Otitis media 10 days 04/14/21 #20 caps ondansetron HCl 4 mg tablet 4 mg PO Q8H PRN nausea and 04/14/21 (Zofran) vomiting #14 tabs metoprolol succinate 50 mg 50 mg PO DAILY #14 tabs 05/22/21 tablet,extended release 24 hr ciprofloxacin 0.3 %-dexamethasone 4 drp otic (ears) BID 7 days 05/26/21 0.1 % ear drops,suspension (Ciprodex) polyethylene glycol 3350 17 17 g PO DAILY PRN constipation 07/31/21 gram/dose oral powder (Miralax) #238 grams hydrocortisone acetate 25 mg 25 mg IN BID #12 ea 08/01/21 rectal suppository (Anucort-HC) cefuroxime axetil 500 mg tablet 500 mg PO BID 7 days #14 tabs 09/01/21 meclizine 25 mg tablet 25 mg PO TID PRN dizziness #10 tabs 09/01/21 zolpidem 5 mg tablet (Ambien) 5 mg PO BEDTIME PRN sleep #2 tabs 10/29/21 zolpidem 5 mg tablet (Ambien) 5 mg PO BEDTIME PRN sleep #2 tabs 10/29/21 levofloxacin 500 mg tablet 500 mg PO DAILY 7 days #7 tabs 07/23/22 levofloxacin 500 mg tablet 500 mg PO DAILY #6 tabs 08/25/22 ofloxacin 0.3 % ear drops 10 drp otic (ears) DAILY 7 days #5 08/25/22 mL hydrocortisone 2.5 % topical cream 1 appl IN BEDTIME PRN hemorrhoids 09/20/22 with perineal applicator #30 grams docusate sodium 100 mg capsule 100 mg PO BID PRN Constipation #14 12/06/22 (Colace) caps phenylephrine 0.25 %-mineral oil 1 appl IN BID PRN hemorrhoids #56 12/06/22 14 %-petrolatm 74.9 % rectal grams ointment (Hemorrhoidal(phenyleph-min oil-petrolat)) polyethylene glycol 3350 17 17 g PO BID #119 grams 12/06/22 gram/dose oral powder (Miralax) cefuroxime axetil 500 mg tablet 500 mg PO BID 10 days #20 tabs 12/16/22 alprazolam 0.25 mg tablet 0.25 mg PO QID #7 tabs 01/04/23 ofloxacin 0.3 % ear drops 5 drp otic (ear) left BID 7 days 01/06/23 #5 mL alprazolam 0.25 mg tablet 0.25 mg PO TID PRN anxiety #7 tabs 01/11/23 alprazolam 0.25 mg tablet 0.25 mg PO TID PRN anxiety #3 tabs 02/02/23 alprazolam 0.5 mg tablet (Xanax) 0.5 mg PO BEDTIME PRN anxiety #7 04/20/23 tabs metoprolol succinate 50 mg 50 mg PO DAILY #7 tabs 05/18/23 tablet,extended release 24 hr lisinopril 40 mg tablet 40 mg PO QPM #90 tabs 05/22/23 ondansetron 4 mg disintegrating 4 mg PO Q8H PRN nausea and 07/06/23 tablet vomiting #10 tabs hydrocortisone 1 % topical cream 1 appl topical BID PRN rash #28.4 08/03/23 grams phenylephrine 0.25 %-mineral oil 1 appl IN BID PRN hemorrhoids #57 08/17/23 14 %-petrolatm 74.9 % rectal grams ointment (Preparation H) polyethylene glycol 3350 17 17 g PO BID #119 grams 08/17/23 gram/dose oral powder (Miralax) diphenhydramine HCl 25 mg tablet 25 mg PO TID PRN Pruritus #20 tabs 08/25/23 (Benadryl Allergy) phenylephrine 0.25 %-cocoa butter 1 supp IN BID #24 ea 08/25/23 88.44 % rectal suppository (Preparation H(phenyleph,cocoa buttr)) phenylephrine 0.25 %-mineral oil 1 appl IN BID #28 grams 08/25/23 14 %-petrolatm 74.9 % rectal ointment (Preparation H) fluticasone propionate 50 2 spray intranasal DAILY #16 grams 09/16/23 mcg/actuation nasal spray,suspension (Flonase Allergy Relief) loratadine 10 mg tablet 10 mg PO DAILY #30 tabs 09/16/23 menthol 0.44 %-zinc oxide 20.6 % 1 appl topical QID PRN skin 09/22/23 topical ointment (Calmoseptine) irritation #113 grams cephalexin 500 mg capsule 500 mg PO TID #15 caps 10/20/23 nitrofurantoin 100 mg PO Q12H 5 days #10 caps 10/20/23 monohydrate/macrocrystals 100 mg capsule (Macrobid) acetaminophen 500 mg tablet 500 mg PO Q6H PRN pain #30 tabs 12/02/23 (Tylenol Extra Strength) carbamide peroxide 6.5 % ear drops 5 drp otic (ear) left DAILY 4 days 12/04/23 (Debrox) #15 mL Allergies Allergy/AdvReac Type Severity Reaction Status Date / Time penicillin G [Penicillin G] Allergy Severe ITCHY/RASH Verified 01/14/24 10:30 Sulfa (Sulfonamide Allergy Severe ITCHY,RASH, Verified 01/14/24 10:30 Antibiotics) rash [Sulfa (Sulfonamides)] trimethoprim [From Bactrim] Allergy Severe HIVES Verified 01/14/24 10:30 Review of Systems Review of Systems: Yes all other systems are reviewed and are negative PMFSH Past Medical History Attestation statement: The following information was validated with the patient. Source: old records reviewed Medical History Bleeding hemorrhoids Essential hypertension PVC (premature ventricular contraction) PAC (premature atrial contraction) SVT (supraventricular tachycardia) Chronic constipation High blood pressure Vertigo Dementia Arthritis Anxiety Surgical History No pertinent past surgical history Social History Social History Alcohol intake: never Patient Tobacco Use Status: Never used Tobacco Advance Directives: No Advance Directives Information Provided: No Physical Exam ED Vital Signs: Vital Signs - 24 hr 01/18/24 05:50 Temperature 98.4 F Pulse Rate 79 Respiratory Rate 17 Blood Pressure 125/76 Pulse Oximetry 96 Oxygen Delivery Method Room Air BMI result Body Mass Index 34.9 Appearance: Alert.?Oriented to person, place and time. No acute distress.?Normal affect. Eyes: Pupils equal, round and reactive to light.? ENT: Pharynx normal.?? Neck: Normal inspection.? Neck supple.?? CVS: Heart sounds normal. Normal heart rate and rhythm.? Pulses normal.?? Respiratory: No respiratory distress.? Lung sounds clear to auscultation bilaterally?? Abdomen: Soft and non-tender. Normoactive bowel sounds?? Skin: Skin warm and dry.? Normal skin color.? ? Extremities: No lower extremity edema.? No calf ttp? Neuro: Moves all extremities spontaneously. Sensation intact bilaterally. CN II-XII intact. No focal neuro deficits. Ambulates with normal steady gait. Medical Decision Making Medical Decision Making [facility] Narrative: Patient is an 78-year-old female who presents to the emergency department via EMS, at the time my evaluation she has no physical complaints and is requesting a prescription for a sleeping pill as per HPI. 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 It does appear as though she receives a 7 day course of her controlled substances and has a lock box in place. Patient was advised that I can not prescribe additional medications of this class and she should follow-up with her primary care provider/psychiatric provider. Vitals are stable. Her physical examination is benign. Reviewed labs obtained prior to my assumption of care, CBC is without leukocytosis, mild normocytic anemia which is consistent with her baseline. Mild hyponatremia with sodium of 133 which appears consistent with baseline as well, normal glucose. High sensitive troponin below detectable levels, EKG revealing a normal sinus rhythm with a ventricular rate of 77, QTC 443, no ST elevation, no ST depression. At this time I feel that she is stable for discharge home and outpatient follow-up with her primary care provider. Discussed worrisome signs and symptoms that would warrant re-evaluation in the emergency department. Differential Diagnosis Differential Diagnoses: The differential diagnosis associated with the presentation includes (Insomnia. Anemia, arrhythmia, ACS. Wells negative unlikely pulmonary embolism and currently asymptomatic. Normotensive.) Admission/Observation Consideration of admission/observation: Escalation of care including admission/observation considered (See narrative above) Lab Data [facility] Lab Attestation statement: I reviewed the patient's lab results. (See narrative above) 01/18/24 06:32 01/18/24 06:32 Labs: Lab Results 01/18/24 Range/Units 06:32 WBC 6.2 (4.8-10.8) X10*3/uL RBC 3.98 L (4.20-5.50) X10*6/uL Hgb 11.1 L (12.0-16.0) g/dl Hct 33.0 L (37.0-47.0) % MCV 82.9 (80.0-98.0) fL MCH 27.9 (27.0-33.0) pg MCHC 33.6 (31.0-35.0) g/dl RDW 13.2 (11.0-16.0) % Plt Count 277 (160-400) X10*3/uL MPV 8.5 L (9.4-12.3) fL Immature Gran % (Auto) 0.3 (0.0-0.4) % Neut % (Auto) 63.4 (45-73) % Lymph % (Auto) 25.0 (20-40) % Jenkins % (Auto) 9.5 (2-11) % Eos % (Auto) 1.0 (0-4) % Baso % (Auto) 0.8 (0-2) % Lymph # (Auto) 1.6 (1.2-4.9) X10*3/uL Jenkins # (Auto) 0.6 (0.1-1.2) X10*3/uL Eos # (Auto) 0.1 (0.0-0.4) X10*3/uL Baso # (Auto) 0.1 (0.0-0.2) X10*3/uL Abs Immat Gran (auto) 0.02 (0.00-0.03) X10*3/uL Absolute Neuts (auto) 4.0 (2.0-8.3) x10*3/uL Absolute Nucleated RBC 0.000 (0.0-0.012) X10*3/uL Nucleated RBC % (auto) 0.0 (0.0-0.2) /100WBC Sodium 133 L (135-145) mmol/L Potassium 4.7 (3.3-5.1) mmol/L Chloride 99 (96-108) mmol/L Carbon Dioxide 26 (22-29) mmol/L Anion Gap 13 (12-20) BUN 21 H (9-16) mg/dL Creatinine 0.95 (0.5-1.4) mg/dL Estim Creat Clear Calc 46.3 Estimated GFR 57 Random Glucose 98 (60-115) mg/dL Calcium 9.1 (8.4-10.2) mg/dL B-Natriuretic Peptide 47 (<100) pg/mL Independent Historian Clinical information obtained from an independent historian. History obtained from or confirmed by: EMS External Record Review External record reviewed: Outpatient record Discharge Plan Discharge Clinical Impression: Insomnia Patient Disposition: Home, Self-Care Instructions: Insomnia (ED) Additional Instructions: You will need to speak with your primary care doctor and/or your psychiatrist regarding any additional need for sleeping medication. You may return back to emergency department with any new or worsening symptoms or concerns. Prescriptions: No Action escitalopram oxalate 10 mg tablet 10 mg PO DAILY Qty: 30 1RF metoprolol succinate 50 mg tablet extended release 24 hr 50 mg PO DAILY Qty: 90 2RF aspirin 81 mg tablet,delayed release (DR/EC) 81 mg PO BEDTIME Qty: 90 2RF polyethylene glycol 3350 [Miralax] 17 gram/dose powder 17 g PO DAILY PRN (Reason: constipation) Qty: 238 0RF lisinopril 40 mg tablet 40 mg PO QPM Qty: 90 0RF Rx Instructions: Please call and schedule cardiology appt acetaminophen 325 mg capsule 325 mg PO QID PRN (Reason: fever or pain) Qty: 30 0RF melatonin 10 mg tablet extended release 10 mg PO .nightly Qty: 5 0RF metoprolol succinate 50 mg tablet extended release 24 hr 50 mg PO DAILY Qty: 14 0RF ciprofloxacin-dexamethasone [Ciprodex] 0.3-0.1 % drops,suspension 4 drp otic (ears) BID 7 Days 0RF alprazolam 0.5 mg Tablet 0.5 mg PO TID PRN (Reason: Anxiety) hydroxyzine HCl 50 mg Tablet 50 mg PO TID PRN (Reason: Anxiety) mirtazapine 45 mg Tablet 45 mg PO BEDTIME multivitamin Capsule 1 cap PO DAILY sertraline 50 mg Tablet 50 mg PO BEDTIME aripiprazole 2 mg Tablet 2 mg PO BEDTIME cholecalciferol (vitamin D3) 25 mcg (1,000 unit) Tablet 25 mcg PO BID omeprazole 20 mg Tablet,Delayed Release (Dr/Ec) 20 mg PO DAILY linaclotide 145 mcg Capsule 145 mcg PO DAILY diphenhydramine HCl [Benadryl] 25 mg capsule 25 mg PO BEDTIME Qty: 7 0RF cefdinir 300 mg capsule 300 mg PO BID 10 Days Qty: 20 0RF ondansetron HCl [Zofran] 4 mg tablet 4 mg PO Q8H PRN (Reason: nausea and vomiting) Qty: 14 0RF cefuroxime axetil 500 mg tablet 500 mg PO BID 7 Days Qty: 14 0RF meclizine 25 mg tablet 25 mg PO TID PRN (Reason: dizziness) Qty: 10 0RF levofloxacin 500 mg tablet 500 mg PO DAILY 7 Days Qty: 7 0RF cefuroxime axetil 500 mg tablet 500 mg PO BID 10 Days Qty: 20 0RF alprazolam 0.25 mg tablet 0.25 mg PO QID Qty: 7 0RF levofloxacin 500 mg tablet 500 mg PO DAILY Qty: 6 0RF Rx Instructions: start on 08/26 ofloxacin 0.3 % drops 10 drp otic (ears) DAILY 7 Days Qty: 5 0RF Rx Instructions: can substitute eye drops if necessary hydrocortisone 2.5 % cream with perineal applicator 1 appl IN BEDTIME PRN (Reason: hemorrhoids) Qty: 30 0RF Hemorrhoidal(PE-min oil-emma) 0.25-14-74.9 % ointment 1 appl IN BID PRN (Reason: hemorrhoids) Qty: 56 0RF polyethylene glycol 3350 [Miralax] 17 gram/dose powder 17 g PO BID Qty: 119 0RF docusate sodium [Colace] 100 mg capsule 100 mg PO BID PRN (Reason: Constipation) Qty: 14 0RF ofloxacin 0.3 % drops 5 drp otic (ear) left BID 7 Days Qty: 5 0RF alprazolam 0.25 mg tablet 0.25 mg PO TID PRN (Reason: anxiety) Qty: 7 0RF alprazolam [Xanax] 0.5 mg tablet 0.5 mg PO BEDTIME PRN (Reason: anxiety) Qty: 7 0RF metoprolol succinate 50 mg tablet extended release 24 hr 50 mg PO DAILY Qty: 7 0RF Preparation H 0.25-14-74.9 % ointment 1 appl IN BID PRN (Reason: hemorrhoids) Qty: 57 0RF polyethylene glycol 3350 [Miralax] 17 gram/dose powder 17 g PO BID Qty: 119 0RF Preparation H 0.25-14-74.9 % ointment 1 appl IN BID Qty: 28 0RF Preparation H(pe,cb) 0.25-88.44 % suppository 1 supp IN BID Qty: 24 0RF diphenhydramine HCl [Benadryl Allergy] 25 mg tablet 25 mg PO TID PRN (Reason: Pruritus) Qty: 20 0RF loratadine 10 mg tablet 10 mg PO DAILY Qty: 30 0RF fluticasone propionate [Flonase Allergy Relief] 50 mcg/actuation spray,suspension 2 spray intranasal DAILY Qty: 16 0RF Rx Instructions: administer into each nostril Debrox 6.5 % drops 5 drp otic (ear) left DAILY 4 Days Qty: 15 0RF alprazolam 0.25 mg tablet 0.25 mg PO TID PRN (Reason: anxiety) Qty: 3 0RF ondansetron 4 mg tablet,disintegrating 4 mg PO Q8H PRN (Reason: nausea and vomiting) Qty: 10 0RF hydrocortisone 1 % cream 1 appl topical BID PRN (Reason: rash) Qty: 28.4 0RF nitrofurantoin monohyd/m-cryst [Macrobid] 100 mg capsule 100 mg PO Q12H 5 Days Qty: 10 0RF Rx Instructions: must administer with a meal/food cephalexin 500 mg capsule 500 mg PO TID Qty: 15 0RF acetaminophen [Tylenol Extra Strength] 500 mg tablet 500 mg PO Q6H PRN (Reason: pain) Qty: 30 0RF Calmoseptine 0.44-20.6 % ointment 1 appl topical QID PRN (Reason: skin irritation) Qty: 113 0RF magnesium citrate Solution 150 ml PO DAILY PRN (Reason: constipation) Qty: 296 0RF Rx Instructions: take only when needed for constipation hydrocortisone acetate [Anucort-HC] 25 mg suppository 25 mg IN BID Qty: 12 3RF zolpidem [Ambien] 5 mg tablet 5 mg PO BEDTIME PRN (Reason: sleep) Qty: 2 0RF zolpidem [Ambien] 5 mg tablet 5 mg PO BEDTIME PRN (Reason: sleep) Qty: 2 0RF menthol-zinc oxide [Calmoseptine] 0.44-20.6 % ointment 1 appl topical QID PRN (Reason: skin irritation) Qty: 113 0RF Referrals: Name,MD Nitin [Primary Care Provider] -
[2024-01-18 07:20] LABS: Troponin-I High Sensitivity < 2.7 ng/L (<3.5-17.0)
[2024-01-18 07:25] LABS: TSH reflex Free T4 1.72 uIU/mL (0.32-4.0)
== END 2024-01-18 07:39 | disposition home or self-care (01) ==
PROVIDERS: Emergency Medicine; Nurse Practitioner Family; Emergency Provider Student in an Organized Health Care Education/Training Program; PCP Internal Medicine Geriatric Medicine
DX: G47.00 Insomnia, unspecified (principal); R00.0 Tachycardia, unspecified; Z79.899 Other long term (current) drug therapy; R06.02 Shortness of breath
CPT/HCPCS: 36415; 80048; 83880; 84443; 84484; 85025; 93005; 99283; 99284

== ENCOUNTER → 2024-01-18 05:49 | Outpatient (BNV) | payer OTHER, SELFPAY | PROVIDERS: Emergency Provider Student in an Organized Health Care Education/Training Program; PCP Internal Medicine Geriatric Medicine; Visit Provider Internal Medicine Cardiovascular Disease | DX: R00.2 Palpitations (principal) | CPT/HCPCS: 93010 ==

== ENCOUNTER 2024-01-19 04:23 | Emergency (ER) | payer OTHER, SELFPAY ==
--- NOTE | 2024-01-19 | ECG_ITS ---
Test Reason : CHEST PAIN Blood Pressure : / mmHG Vent. Rate : 080 BPM Atrial Rate : 080 BPM P-R Int : 180 ms QRS Dur : 104 ms QT Int : 388 ms P-R-T Axes : 056 -20 026 degrees QTc Int : 447 ms Normal sinus rhythm with sinus arrhythmia Minimal voltage criteria for LVH, may be normal variant ( Maycol product ) Borderline ECG When compared with ECG of 18-JAN-2024 05:49, No significant change was found Referred By: Generic ED Physician Electronically Signed By:KATRINA PARSONS MD
[2024-01-19 04:27] VITALS: BP 152/80; BP 152/87; PULSE 70; PULSE 74; RESP 20; TEMP 36.9; O2SAT 95; BMI 32.9
--- NOTE | 2024-01-19 04:54 | PC.NURSE ---
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 pt reporting that her brother has in [place] and is reporting increasing anxiety and reports wanting prescriptions for anxiety and sleep so pt can travel to [place]. pt denies chest pain, n/v/d at this time. pt denies si/hi.
--- NOTE | 2024-01-19 05:10 | PC.NURSE ---
pt ambulated to bathroom with steady gait, denies sob and chest pain.
[2024-01-19 06:12] VITALS: BP 146/72; PULSE 71; RESP 16; TEMP 36.8; O2SAT 96
--- NOTE | 2024-01-19 07:14 | ED.GENADULT ---
HPI - General Adult General Chief complaint: General Medical Stated complaint: HTN ANXIETY Time Seen by Provider: 01/19/24 07:00 Source: patient and old records reviewed Mode of arrival: EMS Limitations: no limitations History of Present Illness HPI narrative: 78 yo female with PMH of SVT, PACs, cognitive impairment, memory issues, anxiety with frequent visits to the ED looks like she is back on benzodiazepines TID in form of xanax by her prescriber. She comes in with anxiety and mild headaches after her brother . She just wants tylenol and anxiety pill no xanax. She has no other complaints no SI. No CP/SOB. MD complaint: headache, anxiety Onset (ago): day(s) (2) Location: head Radiation: non-radiation Severity: mild Quality: aching Pain Consistency: intermittent Relieving factors: none Exacerbating factors: other Associated symptoms: denies other symptoms Treatments prior to arrival: none Related Data Home Medications Medication Instructions Recorded Confirmed alprazolam 0.5 mg tablet 0.5 mg PO TID PRN Anxiety 08/09/20 09/22/23 aripiprazole 2 mg tablet 2 mg PO BEDTIME 08/09/20 09/22/23 cholecalciferol (vitamin D3) 25 25 mcg PO BID 08/09/20 09/22/23 mcg (1,000 unit) tablet hydroxyzine HCl 50 mg tablet 50 mg PO TID PRN Anxiety 08/09/20 09/22/23 linaclotide 145 mcg capsule 145 mcg PO DAILY 08/09/20 09/22/23 mirtazapine 45 mg tablet 45 mg PO BEDTIME 08/09/20 09/22/23 multivitamin 1 cap PO DAILY 08/09/20 09/22/23 omeprazole 20 mg tablet,delayed 20 mg PO DAILY 08/09/20 09/22/23 release sertraline 50 mg tablet 50 mg PO BEDTIME 08/09/20 09/22/23 Previous Rx's Medication Instructions Recorded escitalopram oxalate 10 mg tablet 10 mg PO DAILY #30 tabs 09/06/20 acetaminophen 325 mg capsule 325 mg PO QID PRN fever or pain 09/16/20 #30 caps aspirin 81 mg tablet,delayed 81 mg PO BEDTIME #90 tabs 09/28/20 release metoprolol succinate 50 mg 50 mg PO DAILY #90 tabs 11/19/20 tablet,extended release 24 hr menthol 0.44 %-zinc oxide 20.6 % 1 appl topical QID PRN skin 12/13/20 topical ointment (Calmoseptine) irritation #113 grams magnesium citrate 150 ml PO DAILY PRN constipation 12/14/20 #296 mL diphenhydramine HCl 25 mg capsule 25 mg PO BEDTIME insomnia #7 caps 12/25/20 (Benadryl) melatonin 10 mg tablet,extended 10 mg PO .nightly #5 tabs 01/07/21 release cefdinir 300 mg capsule 300 mg PO BID Otitis media 10 days 04/14/21 #20 caps ondansetron HCl 4 mg tablet 4 mg PO Q8H PRN nausea and 04/14/21 (Zofran) vomiting #14 tabs metoprolol succinate 50 mg 50 mg PO DAILY #14 tabs 05/22/21 tablet,extended release 24 hr ciprofloxacin 0.3 %-dexamethasone 4 drp otic (ears) BID 7 days 05/26/21 0.1 % ear drops,suspension (Ciprodex) polyethylene glycol 3350 17 17 g PO DAILY PRN constipation 07/31/21 gram/dose oral powder (Miralax) #238 grams hydrocortisone acetate 25 mg 25 mg NE BID #12 ea 08/01/21 rectal suppository (Anucort-HC) cefuroxime axetil 500 mg tablet 500 mg PO BID 7 days #14 tabs 09/01/21 meclizine 25 mg tablet 25 mg PO TID PRN dizziness #10 tabs 09/01/21 zolpidem 5 mg tablet (Ambien) 5 mg PO BEDTIME PRN sleep #2 tabs 10/29/21 zolpidem 5 mg tablet (Ambien) 5 mg PO BEDTIME PRN sleep #2 tabs 10/29/21 levofloxacin 500 mg tablet 500 mg PO DAILY 7 days #7 tabs 07/23/22 levofloxacin 500 mg tablet 500 mg PO DAILY #6 tabs 08/25/22 ofloxacin 0.3 % ear drops 10 drp otic (ears) DAILY 7 days #5 08/25/22 mL hydrocortisone 2.5 % topical cream 1 appl NE BEDTIME PRN hemorrhoids 09/20/22 with perineal applicator #30 grams docusate sodium 100 mg capsule 100 mg PO BID PRN Constipation #14 12/06/22 (Colace) caps phenylephrine 0.25 %-mineral oil 1 appl NE BID PRN hemorrhoids #56 12/06/22 14 %-petrolatm 74.9 % rectal grams ointment (Hemorrhoidal(phenyleph-min oil-petrolat)) polyethylene glycol 3350 17 17 g PO BID #119 grams 12/06/22 gram/dose oral powder (Miralax) cefuroxime axetil 500 mg tablet 500 mg PO BID 10 days #20 tabs 12/16/22 alprazolam 0.25 mg tablet 0.25 mg PO QID #7 tabs 01/04/23 ofloxacin 0.3 % ear drops 5 drp otic (ear) left BID 7 days 01/06/23 #5 mL alprazolam 0.25 mg tablet 0.25 mg PO TID PRN anxiety #7 tabs 01/11/23 alprazolam 0.25 mg tablet 0.25 mg PO TID PRN anxiety #3 tabs 02/02/23 alprazolam 0.5 mg tablet (Xanax) 0.5 mg PO BEDTIME PRN anxiety #7 04/20/23 tabs metoprolol succinate 50 mg 50 mg PO DAILY #7 tabs 05/18/23 tablet,extended release 24 hr lisinopril 40 mg tablet 40 mg PO QPM #90 tabs 05/22/23 ondansetron 4 mg disintegrating 4 mg PO Q8H PRN nausea and 07/06/23 tablet vomiting #10 tabs hydrocortisone 1 % topical cream 1 appl topical BID PRN rash #28.4 08/03/23 grams phenylephrine 0.25 %-mineral oil 1 appl NE BID PRN hemorrhoids #57 08/17/23 14 %-petrolatm 74.9 % rectal grams ointment (Preparation H) polyethylene glycol 3350 17 17 g PO BID #119 grams 08/17/23 gram/dose oral powder (Miralax) diphenhydramine HCl 25 mg tablet 25 mg PO TID PRN Pruritus #20 tabs 08/25/23 (Benadryl Allergy) phenylephrine 0.25 %-cocoa butter 1 supp NE BID #24 ea 08/25/23 88.44 % rectal suppository (Preparation H(phenyleph,cocoa buttr)) phenylephrine 0.25 %-mineral oil 1 appl NE BID #28 grams 08/25/23 14 %-petrolatm 74.9 % rectal ointment (Preparation H) fluticasone propionate 50 2 spray intranasal DAILY #16 grams 09/16/23 mcg/actuation nasal spray,suspension (Flonase Allergy Relief) loratadine 10 mg tablet 10 mg PO DAILY #30 tabs 09/16/23 menthol 0.44 %-zinc oxide 20.6 % 1 appl topical QID PRN skin 09/22/23 topical ointment (Calmoseptine) irritation #113 grams cephalexin 500 mg capsule 500 mg PO TID #15 caps 10/20/23 nitrofurantoin 100 mg PO Q12H 5 days #10 caps 10/20/23 monohydrate/macrocrystals 100 mg capsule (Macrobid) acetaminophen 500 mg tablet 500 mg PO Q6H PRN pain #30 tabs 12/02/23 (Tylenol Extra Strength) carbamide peroxide 6.5 % ear drops 5 drp otic (ear) left DAILY 4 days 12/04/23 (Debrox) #15 mL Allergies Allergy/AdvReac Type Severity Reaction Status Date / Time penicillin G [Penicillin G] Allergy Severe ITCHY/RASH Verified 01/19/24 04:27 Sulfa (Sulfonamide Allergy Severe ITCHY,RASH, Verified 01/19/24 04:27 Antibiotics) rash [Sulfa (Sulfonamides)] trimethoprim [From Bactrim] Allergy Severe HIVES Verified 01/19/24 04:27 Review of Systems Review of Systems: Constitutional : No Fever, No Chills, No Fatigue ENT/Mouth : No sore throat, No Rhinorrhea Eyes: No Eye Pain, No Swelling, No Redness Cardiovascular : No Chest Pain, No SOB, No Dyspnea on Exertion Respiratory : No Cough, No Sputum Gastrointestinal : No Nausea, No Vomiting, No Diarrhea, No abdominal Pain Genitourinary : No Dysuria, No Urinary Frequency, No Hematuria, Musculoskeletal : No joint pain, No Myalgias, No Joint Swelling Skin : No Skin Lesions, No rash Neuro : No Weakness, No Numbness, No Dizziness, positive Headache Psych : pos Anxiety/Panic, No Depression All other systems reviewed and are negative PMFSH Past Medical History Attestation statement: The following information was validated with the patient. Source: old records reviewed Medical History Bleeding hemorrhoids Essential hypertension PVC (premature ventricular contraction) PAC (premature atrial contraction) SVT (supraventricular tachycardia) Chronic constipation High blood pressure Vertigo Dementia Arthritis Anxiety Surgical History No pertinent past surgical history Social History Social History Alcohol intake: never Patient Tobacco Use Status: Never used Tobacco Smoked in Last 30 Days: No Use of substances other than those prescribed or required for medical reasons: No Advance Directives: No Advance Directives Information Provided: No Physical Exam ED Vital Signs: Vital Signs - 24 hr 01/19/24 04:27 01/19/24 06:12 Temperature 98.5 F 98.2 F Pulse Rate 70 71 Respiratory Rate 20 16 Blood Pressure 152/80 H 146/72 H Pulse Oximetry 95 96 Oxygen Delivery Method Room Air Room Air BMI result Body Mass Index 32.9 Appearance: Alert. Oriented X3. No acute distress. anxious demanding meds, god bless you god bless you Eyes: Pupils equal, round and reactive to light. ENT: Pharynx normal. Neck: Normal inspection. Neck supple. CVS: Normal heart rate and rhythm. Pulses normal. Respiratory: No respiratory distress. Breath sounds normal. Abdomen: Soft and nontender. Skin: Skin warm and dry. Normal skin color. Normal skin turgor. Extremities: No lower extremity edema. No calf ttp Neuro: Oriented X 3. No motor deficit. No sensory deficit. Medications Administered Discontinued Medications Generic Name Dose Route Start Last Admin Trade Name Beau PRN Reason Stop Dose Admin Acetaminophen 650 mg 01/19/24 07:09 01/19/24 07:16 Acetaminophen 325 Mg Tablet PO 01/19/24 07:10 650 mg ONCE ONE Administration Hydroxyzine HCl 25 mg 01/19/24 07:09 01/19/24 07:16 Hydroxyzine Hcl 25 Mg Tablet PO 01/19/24 07:10 25 mg ONCE ONE Administration Medical Decision Making Medical Decision Making MDM Narrative: 78 yo female with PMH of SVT, PACs, cognitive impairment, memory issues, anxiety with frequent visits to the ED here asking for tylenol and anxiety pill after her brother . This is a typical presentation for her. She is at her baseline we see her frequently. No CP/SOB no head trauma. Denies medical complaints. No focal weakness. She is presenting as usual. Tylenol and atarax ordered. Encouragd her to call her outside providers Differential Diagnosis Differential Diagnoses: The differential diagnosis associated with the presentation includes anxiety, grief reaction Admission/Observation Consideration of admission/observation: Escalation of care including admission/observation considered does not want crisis intervention Independent Interpretation I performed an independent interpretation of an: EKG Interpretation: Rate: 80 Rhythm: NSR [place]: left Normal P waves. Normal MALIK. Normal QRS complex. ST T wave : no DOUGLAS qTC: 480 prior studies: no acute ischemia The study has been interpreted contemporaneously by me. . Prescription Management I considered prescription management with: Other Discharge Plan Discharge Clinical Impression: Generalized anxiety disorder with panic attacks Patient Disposition: Home, Self-Care Instructions: Anxiety (ED) Additional Instructions: follow up with your therapist to discuss your feelings about your brother. return for any worsening symptoms or concerns. Steve un seguimiento con clark terapeuta para hablar sobre kelsi sentimientos acerca de clark kiah. Regrese si tiene alg?n s?ntoma o inquietud que empeore. Prescriptions: No Action escitalopram oxalate 10 mg tablet 10 mg PO DAILY Qty: 30 1RF metoprolol succinate 50 mg tablet extended release 24 hr 50 mg PO DAILY Qty: 90 2RF aspirin 81 mg tablet,delayed release (DR/EC) 81 mg PO BEDTIME Qty: 90 2RF polyethylene glycol 3350 [Miralax] 17 gram/dose powder 17 g PO DAILY PRN (Reason: constipation) Qty: 238 0RF lisinopril 40 mg tablet 40 mg PO QPM Qty: 90 0RF Rx Instructions: Please call and schedule cardiology appt acetaminophen 325 mg capsule 325 mg PO QID PRN (Reason: fever or pain) Qty: 30 0RF melatonin 10 mg tablet extended release 10 mg PO .nightly Qty: 5 0RF metoprolol succinate 50 mg tablet extended release 24 hr 50 mg PO DAILY Qty: 14 0RF ciprofloxacin-dexamethasone [Ciprodex] 0.3-0.1 % drops,suspension 4 drp otic (ears) BID 7 Days 0RF alprazolam 0.5 mg Tablet 0.5 mg PO TID PRN (Reason: Anxiety) hydroxyzine HCl 50 mg Tablet 50 mg PO TID PRN (Reason: Anxiety) mirtazapine 45 mg Tablet 45 mg PO BEDTIME multivitamin Capsule 1 cap PO DAILY sertraline 50 mg Tablet 50 mg PO BEDTIME aripiprazole 2 mg Tablet 2 mg PO BEDTIME cholecalciferol (vitamin D3) 25 mcg (1,000 unit) Tablet 25 mcg PO BID omeprazole 20 mg Tablet,Delayed Release (Dr/Ec) 20 mg PO DAILY linaclotide 145 mcg Capsule 145 mcg PO DAILY diphenhydramine HCl [Benadryl] 25 mg capsule 25 mg PO BEDTIME Qty: 7 0RF cefdinir 300 mg capsule 300 mg PO BID 10 Days Qty: 20 0RF ondansetron HCl [Zofran] 4 mg tablet 4 mg PO Q8H PRN (Reason: nausea and vomiting) Qty: 14 0RF cefuroxime axetil 500 mg tablet 500 mg PO BID 7 Days Qty: 14 0RF meclizine 25 mg tablet 25 mg PO TID PRN (Reason: dizziness) Qty: 10 0RF levofloxacin 500 mg tablet 500 mg PO DAILY 7 Days Qty: 7 0RF cefuroxime axetil 500 mg tablet 500 mg PO BID 10 Days Qty: 20 0RF alprazolam 0.25 mg tablet 0.25 mg PO QID Qty: 7 0RF levofloxacin 500 mg tablet 500 mg PO DAILY Qty: 6 0RF Rx Instructions: start on 08/26 ofloxacin 0.3 % drops 10 drp otic (ears) DAILY 7 Days Qty: 5 0RF Rx Instructions: can substitute eye drops if necessary hydrocortisone 2.5 % cream with perineal applicator 1 appl NE BEDTIME PRN (Reason: hemorrhoids) Qty: 30 0RF Hemorrhoidal(PE-min oil-emma) 0.25-14-74.9 % ointment 1 appl NE BID PRN (Reason: hemorrhoids) Qty: 56 0RF polyethylene glycol 3350 [Miralax] 17 gram/dose powder 17 g PO BID Qty: 119 0RF docusate sodium [Colace] 100 mg capsule 100 mg PO BID PRN (Reason: Constipation) Qty: 14 0RF ofloxacin 0.3 % drops 5 drp otic (ear) left BID 7 Days Qty: 5 0RF alprazolam 0.25 mg tablet 0.25 mg PO TID PRN (Reason: anxiety) Qty: 7 0RF alprazolam [Xanax] 0.5 mg tablet 0.5 mg PO BEDTIME PRN (Reason: anxiety) Qty: 7 0RF metoprolol succinate 50 mg tablet extended release 24 hr 50 mg PO DAILY Qty: 7 0RF Preparation H 0.25-14-74.9 % ointment 1 appl NE BID PRN (Reason: hemorrhoids) Qty: 57 0RF polyethylene glycol 3350 [Miralax] 17 gram/dose powder 17 g PO BID Qty: 119 0RF Preparation H 0.25-14-74.9 % ointment 1 appl NE BID Qty: 28 0RF Preparation H(pe,cb) 0.25-88.44 % suppository 1 supp NE BID Qty: 24 0RF diphenhydramine HCl [Benadryl Allergy] 25 mg tablet 25 mg PO TID PRN (Reason: Pruritus) Qty: 20 0RF loratadine 10 mg tablet 10 mg PO DAILY Qty: 30 0RF fluticasone propionate [Flonase Allergy Relief] 50 mcg/actuation spray,suspension 2 spray intranasal DAILY Qty: 16 0RF Rx Instructions: administer into each nostril Debrox 6.5 % drops 5 drp otic (ear) left DAILY 4 Days Qty: 15 0RF alprazolam 0.25 mg tablet 0.25 mg PO TID PRN (Reason: anxiety) Qty: 3 0RF ondansetron 4 mg tablet,disintegrating 4 mg PO Q8H PRN (Reason: nausea and vomiting) Qty: 10 0RF hydrocortisone 1 % cream 1 appl topical BID PRN (Reason: rash) Qty: 28.4 0RF nitrofurantoin monohyd/m-cryst [Macrobid] 100 mg capsule 100 mg PO Q12H 5 Days Qty: 10 0RF Rx Instructions: must administer with a meal/food cephalexin 500 mg capsule 500 mg PO TID Qty: 15 0RF acetaminophen [Tylenol Extra Strength] 500 mg tablet 500 mg PO Q6H PRN (Reason: pain) Qty: 30 0RF Calmoseptine 0.44-20.6 % ointment 1 appl topical QID PRN (Reason: skin irritation) Qty: 113 0RF magnesium citrate Solution 150 ml PO DAILY PRN (Reason: constipation) Qty: 296 0RF Rx Instructions: take only when needed for constipation hydrocortisone acetate [Anucort-HC] 25 mg suppository 25 mg NE BID Qty: 12 3RF zolpidem [Ambien] 5 mg tablet 5 mg PO BEDTIME PRN (Reason: sleep) Qty: 2 0RF zolpidem [Ambien] 5 mg tablet 5 mg PO BEDTIME PRN (Reason: sleep) Qty: 2 0RF menthol-zinc oxide [Calmoseptine] 0.44-20.6 % ointment 1 appl topical QID PRN (Reason: skin irritation) Qty: 113 0RF Print Language: Luxembourgish
[2024-01-19] MEDS: Acetaminophen 325 MG TABLET 650 MG PO (07:16)
[2024-01-19] MEDS: hydrOXYzine HCL 25 MG TABLET PO (07:16)
== END 2024-01-19 07:23 | disposition home or self-care (01) ==
PROVIDERS: Emergency Provider Emergency Medicine; PCP Internal Medicine Geriatric Medicine
DX: F41.1 Generalized anxiety disorder (principal); F41.0 Panic disorder [episodic paroxysmal anxiety]; Z79.899 Other long term (current) drug therapy
CPT/HCPCS: 93005; 99283; 99285

== ENCOUNTER → 2024-01-19 04:32 | Outpatient (BNV) | payer OTHER, SELFPAY | PROVIDERS: Emergency Provider Emergency Medicine; PCP Internal Medicine Geriatric Medicine; Visit Provider Internal Medicine Cardiovascular Disease | DX: R07.9 Chest pain, unspecified (principal) | CPT/HCPCS: 93010 ==

== ENCOUNTER 2024-01-21 01:42 | Emergency (ER) | payer OTHER, SELFPAY ==
[2024-01-21 01:53] VITALS: BP 160/82; PULSE 86; RESP 18; TEMP 36.8; O2SAT 96; BMI 28.0
[2024-01-21 03:40] LABS: Influenza A PCR NEGATIVE (Negative); Influenza B PCR NEGATIVE (Negative); Resp Syncy Virus RNA Qual PCR NEGATIVE (Negative); SARS COV2 PCR INHOUSE NEGATIVE (Negative)
--- NOTE | 2024-01-21 03:40 | ED_ITS ---
HPI - Nausea/Vomiting/Diarrhea General Chief complaint: Nausea/Vomiting/Diarrhea Stated complaint: abd pain, diharea Time Seen by Provider: 01/21/24 03:36 Source: patient, old records reviewed and american sign language interpreter Mode of arrival: ambulatory Limitations: no limitations History of Present Illness HPI Narrative: 78 yo female with PMH of SVT, PACs, cognitive impairment, memory issues, anxiety with frequent visits to the ED after eating a lot of cookies that were filled with chocolate at 8pm given to her by a friend after that she started to have diarrhea and nausea. She wants medications to make it stop. She has no pain and no vomiting. She doesn't normally eat that many cookies. MD elicited complaint: nausea and diarrhea Onset (ago): hour(s) (9pm) Description of diarrhea: watery Associated nausea: Yes Associated abdominal pain: No Severity: mild Exacerbating factors: eating Relieving factors: none Context: other (started after eating a lot of cookies) Associated symptoms: denies other symptoms Related Data Home Medications Medication Instructions Recorded Confirmed alprazolam 0.5 mg tablet 0.5 mg PO TID PRN Anxiety 08/09/20 01/20/24 aripiprazole 2 mg tablet 2 mg PO BEDTIME 08/09/20 01/20/24 cholecalciferol (vitamin D3) 25 25 mcg PO BID 08/09/20 01/20/24 mcg (1,000 unit) tablet hydroxyzine HCl 50 mg tablet 50 mg PO TID PRN Anxiety 08/09/20 01/20/24 linaclotide 145 mcg capsule 145 mcg PO DAILY 08/09/20 01/20/24 mirtazapine 45 mg tablet 45 mg PO BEDTIME 08/09/20 01/20/24 multivitamin 1 cap PO DAILY 08/09/20 01/20/24 omeprazole 20 mg tablet,delayed 20 mg PO DAILY 08/09/20 01/20/24 release sertraline 50 mg tablet 50 mg PO BEDTIME 08/09/20 01/20/24 Previous Rx's Medication Instructions Recorded escitalopram oxalate 10 mg tablet 10 mg PO DAILY #30 tabs 09/06/20 acetaminophen 325 mg capsule 325 mg PO QID PRN fever or pain 09/16/20 #30 caps aspirin 81 mg tablet,delayed 81 mg PO BEDTIME #90 tabs 09/28/20 release metoprolol succinate 50 mg 50 mg PO DAILY #90 tabs 09/28/20 tablet,extended release 24 hr menthol 0.44 %-zinc oxide 20.6 % 1 appl topical QID PRN skin 12/13/20 topical ointment (Calmoseptine) irritation #113 grams magnesium citrate 150 ml PO DAILY PRN constipation 12/14/20 #296 mL diphenhydramine HCl 25 mg capsule 25 mg PO BEDTIME insomnia #7 caps 12/25/20 (Benadryl) melatonin 10 mg tablet,extended 10 mg PO .nightly #5 tabs 01/07/21 release cefdinir 300 mg capsule 300 mg PO BID Otitis media 10 days 04/14/21 #20 caps ondansetron HCl 4 mg tablet 4 mg PO Q8H PRN nausea and 04/14/21 (Zofran) vomiting #14 tabs metoprolol succinate 50 mg 50 mg PO DAILY #14 tabs 05/22/21 tablet,extended release 24 hr ciprofloxacin 0.3 %-dexamethasone 4 drp otic (ears) BID 7 days 05/26/21 0.1 % ear drops,suspension (Ciprodex) polyethylene glycol 3350 17 17 g PO DAILY PRN constipation 07/31/21 gram/dose oral powder (Miralax) #238 grams hydrocortisone acetate 25 mg 25 mg DE BID #12 ea 08/01/21 rectal suppository (Anucort-HC) cefuroxime axetil 500 mg tablet 500 mg PO BID 7 days #14 tabs 09/01/21 meclizine 25 mg tablet 25 mg PO TID PRN dizziness #10 tabs 09/01/21 zolpidem 5 mg tablet (Ambien) 5 mg PO BEDTIME PRN sleep #2 tabs 10/29/21 zolpidem 5 mg tablet (Ambien) 5 mg PO BEDTIME PRN sleep #2 tabs 10/29/21 levofloxacin 500 mg tablet 500 mg PO DAILY 7 days #7 tabs 07/23/22 levofloxacin 500 mg tablet 500 mg PO DAILY #6 tabs 08/25/22 ofloxacin 0.3 % ear drops 10 drp otic (ears) DAILY 7 days #5 08/25/22 mL hydrocortisone 2.5 % topical cream 1 appl DE BEDTIME PRN hemorrhoids 09/20/22 with perineal applicator #30 grams docusate sodium 100 mg capsule 100 mg PO BID PRN Constipation #14 12/06/22 (Colace) caps phenylephrine 0.25 %-mineral oil 1 appl DE BID PRN hemorrhoids #56 12/06/22 14 %-petrolatm 74.9 % rectal grams ointment (Hemorrhoidal(phenyleph-min oil-petrolat)) polyethylene glycol 3350 17 17 g PO BID #119 grams 12/06/22 gram/dose oral powder (Miralax) cefuroxime axetil 500 mg tablet 500 mg PO BID 10 days #20 tabs 12/16/22 alprazolam 0.25 mg tablet 0.25 mg PO QID #7 tabs 01/04/23 ofloxacin 0.3 % ear drops 5 drp otic (ear) left BID 7 days 01/06/23 #5 mL alprazolam 0.25 mg tablet 0.25 mg PO TID PRN anxiety #7 tabs 01/11/23 alprazolam 0.25 mg tablet 0.25 mg PO TID PRN anxiety #3 tabs 02/02/23 alprazolam 0.5 mg tablet (Xanax) 0.5 mg PO BEDTIME PRN anxiety #7 04/20/23 tabs metoprolol succinate 50 mg 50 mg PO DAILY #7 tabs 05/18/23 tablet,extended release 24 hr lisinopril 40 mg tablet 40 mg PO QPM #90 tabs 05/22/23 ondansetron 4 mg disintegrating 4 mg PO Q8H PRN nausea and 07/06/23 tablet vomiting #10 tabs hydrocortisone 1 % topical cream 1 appl topical BID PRN rash #28.4 08/03/23 grams phenylephrine 0.25 %-mineral oil 1 appl DE BID PRN hemorrhoids #57 08/17/23 14 %-petrolatm 74.9 % rectal grams ointment (Preparation H) polyethylene glycol 3350 17 17 g PO BID #119 grams 08/17/23 gram/dose oral powder (Miralax) diphenhydramine HCl 25 mg tablet 25 mg PO TID PRN Pruritus #20 tabs 08/25/23 (Benadryl Allergy) phenylephrine 0.25 %-cocoa butter 1 supp DE BID #24 ea 08/25/23 88.44 % rectal suppository (Preparation H(phenyleph,cocoa buttr)) phenylephrine 0.25 %-mineral oil 1 appl DE BID #28 grams 08/25/23 14 %-petrolatm 74.9 % rectal ointment (Preparation H) fluticasone propionate 50 2 spray intranasal DAILY #16 grams 09/16/23 mcg/actuation nasal spray,suspension (Flonase Allergy Relief) loratadine 10 mg tablet 10 mg PO DAILY #30 tabs 09/16/23 menthol 0.44 %-zinc oxide 20.6 % 1 appl topical QID PRN skin 09/22/23 topical ointment (Calmoseptine) irritation #113 grams cephalexin 500 mg capsule 500 mg PO TID #15 caps 10/20/23 nitrofurantoin 100 mg PO Q12H 5 days #10 caps 10/20/23 monohydrate/macrocrystals 100 mg capsule (Macrobid) acetaminophen 500 mg tablet 500 mg PO Q6H PRN pain #30 tabs 12/02/23 (Tylenol Extra Strength) carbamide peroxide 6.5 % ear drops 5 drp otic (ear) left DAILY 4 days 12/04/23 (Debrox) #15 mL Allergies Allergy/AdvReac Type Severity Reaction Status Date / Time penicillin G [Penicillin G] Allergy Severe ITCHY/RASH Verified 01/19/24 04:27 Sulfa (Sulfonamide Allergy Severe ITCHY,RASH, Verified 01/19/24 04:27 Antibiotics) rash [Sulfa (Sulfonamides)] trimethoprim [From Bactrim] Allergy Severe HIVES Verified 01/19/24 04:27 Review of Systems 2 Review of Systems: Constitutional : No Weight loss, No Fever, No Chills ENT/Mouth : No sore throat, No Rhinorrhea Eyes: No Swelling, No Redness Cardiovascular : No Chest Pain, No SOB, No Edema Respiratory : No Cough, No Sputum, No Wheezing Gastrointestinal : Positive Nausea, no Vomiting, positive Diarrhea, no abdominal Pain, No Hematochezia, No Melena Genitourinary : No Dysuria, No Urinary Frequency, No Hematuria, No Urgency Musculoskeletal : No joint pain, No Myalgias, No Joint Swelling Skin : No Skin Lesions, No rash Neuro : No Weakness, No Numbness, No Dizziness, No Headache Psych : No Anxiety/Panic, No Depression All other systems reviewed and are negative. Gastrointestinal: Gastrointestinal: Reports nausea PMFSH Past Medical History Attestation statement: The following information was validated with the patient. Source: old records reviewed Medical History Bleeding hemorrhoids Essential hypertension PVC (premature ventricular contraction) PAC (premature atrial contraction) SVT (supraventricular tachycardia) Chronic constipation High blood pressure Vertigo Dementia Arthritis Anxiety Surgical History No pertinent past surgical history Social History Social History Alcohol intake: never Patient Tobacco Use Status: Never used Tobacco Advance Directives: No Advance Directives Information Provided: No Physical Exam 2 Vital Signs: Vital Signs: Last Vital Signs Temp 98.2 F 01/21/24 01:53 Pulse 86 01/21/24 01:53 Resp 18 01/21/24 01:53 BP 160/82 H 01/21/24 01:53 Pulse Ox 96 01/21/24 01:53 O2 Del Method Room Air 01/21/24 01:53 BMI result Body Mass Index 28.0 Appearance: Alert. Oriented X3. No acute distress. Eyes: Pupils equal, round and reactive to light. ENT: Pharynx normal. Neck: Normal inspection. Neck supple. CVS: Normal heart rate and rhythm. Pulses normal. Respiratory: No respiratory distress. Breath sounds normal. Abdomen: Soft and nontender. Skin: Skin warm and dry. Normal skin color. Normal skin turgor. Extremities: No lower extremity edema. No calf ttp Neuro: Oriented X 3. No motor deficit. No sensory deficit. Medications Administered Discontinued Medications Generic Name Dose Route Start Last Admin Trade Name Freq PRN Reason Stop Dose Admin Diphenoxylate HCl/Atropine 1 tab 01/21/24 03:46 01/21/24 04:12 Diphenoxylate/Atrop 2.5/0.025 Tablet PO 01/21/24 03:47 Not Given ONCE ONE Hydroxyzine HCl 25 mg 01/21/24 03:46 01/21/24 04:11 Hydroxyzine Hcl 25 Mg Tablet PO 01/21/24 03:47 25 mg ONCE ONE Administration Ondansetron HCl 4 mg 01/21/24 03:46 01/21/24 04:11 Ondansetron Odt 4 Mg Tab.Robin BOWDEN 01/21/24 03:47 4 mg ONCE ONE Administration Medical Decision Making Medical Decision Making MDM Narrative: 78 yo female with PMH of SVT, PACs, cognitive impairment, memory issues, anxiety with frequent visits to the ED here with c/o mild nausea and diarrhea after eating too many cookies at this time no abdominal ttp no vomiting, no fevers will need basic labs, zofran and immodium. No blood reported overall not toxic appearing Differential Diagnosis Differential Diagnoses: The differential diagnosis associated with the presentation includes viral syndrome, over eating, anxiety Admission/Observation Consideration of admission/observation: Escalation of care including admission/observation considered Lab Data [facility] Lab Attestation statement: I reviewed the patient's lab results. 01/21/24 04:23 01/21/24 04:23 Labs: Lab Results 01/21/24 01/21/24 Range/Units 03:00 04:23 WBC 8.8 (4.8-10.8) X10*3/uL RBC 4.52 (4.20-5.50) X10*6/uL Hgb 12.6 (12.0-16.0) g/dl Hct 37.1 (37.0-47.0) % MCV 82.1 (80.0-98.0) fL MCH 27.9 (27.0-33.0) pg MCHC 34.0 (31.0-35.0) g/dl RDW 13.6 (11.0-16.0) % Plt Count 320 (160-400) X10*3/uL MPV 8.4 L (9.4-12.3) fL Immature Gran % (Auto) 0.3 (0.0-0.4) % Neut % (Auto) 69.9 (45-73) % Lymph % (Auto) 20.4 (20-40) % [place] % (Auto) 7.8 (2-11) % Eos % (Auto) 0.9 (0-4) % Baso % (Auto) 0.7 (0-2) % Lymph # (Auto) 1.8 (1.2-4.9) X10*3/uL [place] # (Auto) 0.7 (0.1-1.2) X10*3/uL Eos # (Auto) 0.1 (0.0-0.4) X10*3/uL Baso # (Auto) 0.1 (0.0-0.2) X10*3/uL Abs Immat Gran (auto) 0.03 (0.00-0.03) X10*3/uL Absolute Neuts (auto) 6.2 (2.0-8.3) x10*3/uL Absolute Nucleated RBC 0.000 (0.0-0.012) X10*3/uL Nucleated RBC % (auto) 0.0 (0.0-0.2) /100WBC Sodium 133 L (135-145) mmol/L Potassium 4.4 (3.3-5.1) mmol/L Chloride 96 (96-108) mmol/L Carbon Dioxide 28 (22-29) mmol/L Anion Gap 13 (12-20) BUN 22 H (9-16) mg/dL Creatinine 1.12 (0.5-1.4) mg/dL Estim Creat Clear Calc 45.3 Estimated GFR 47 Random Glucose 99 (60-115) mg/dL Calcium 9.8 D (8.4-10.2) mg/dL Total Bilirubin 0.3 (0.0-1.0) mg/dL Direct Bilirubin 0.2 (0.0-0.5) mg/dL AST 31 (5-31) U/L ALT 23 (0-31) U/L Alkaline Phosphatase 74 (39-117) U/L Total Protein 8.8 H (6.5-8.0) g/dL Albumin 4.6 (3.5-5.0) g/dL Lipase 25 (8-78) U/L Influenza Type A (PCR) NEGATIVE (Negative) Influenza Type B (PCR) NEGATIVE (Negative) RSV RNA Qual (PCR) NEGATIVE (Negative) SARS-CoV-2 RNA (RT-PCR) NEGATIVE (Negative) External Record Review External record reviewed: Inpatient record Prescription Management I considered prescription management with: Other Discharge Plan Discharge Clinical Impression: Nausea Diarrhea Qualifiers: Diarrhea type: unspecified type Qualified Code(s): R19.7 - Diarrhea, unspecified Patient Disposition: Home, Self-Care Instructions: Acute Nausea and Vomiting (ED), Acute Diarrhea (ED) Additional Instructions: return for any worsening symptoms, fevers, inability to eat or drink, bloody stools, or any other concerns. Regrese si los s?ntomas empeoran, fiebre, incapacidad para comer o beber, heces con morris o cualquier otra inquietud. Prescriptions: No Action escitalopram oxalate 10 mg tablet 10 mg PO DAILY Qty: 30 1RF metoprolol succinate 50 mg tablet extended release 24 hr 50 mg PO DAILY Qty: 90 2RF aspirin 81 mg tablet,delayed release (DR/EC) 81 mg PO BEDTIME Qty: 90 2RF polyethylene glycol 3350 [Miralax] 17 gram/dose powder 17 g PO DAILY PRN (Reason: constipation) Qty: 238 0RF lisinopril 40 mg tablet 40 mg PO QPM Qty: 90 0RF Rx Instructions: Please call and schedule cardiology appt acetaminophen 325 mg capsule 325 mg PO QID PRN (Reason: fever or pain) Qty: 30 0RF melatonin 10 mg tablet extended release 10 mg PO .nightly Qty: 5 0RF metoprolol succinate 50 mg tablet extended release 24 hr 50 mg PO DAILY Qty: 14 0RF ciprofloxacin-dexamethasone [Ciprodex] 0.3-0.1 % drops,suspension 4 drp otic (ears) BID 7 Days 0RF alprazolam 0.5 mg Tablet 0.5 mg PO TID PRN (Reason: Anxiety) hydroxyzine HCl 50 mg Tablet 50 mg PO TID PRN (Reason: Anxiety) mirtazapine 45 mg Tablet 45 mg PO BEDTIME multivitamin Capsule 1 cap PO DAILY sertraline 50 mg Tablet 50 mg PO BEDTIME aripiprazole 2 mg Tablet 2 mg PO BEDTIME cholecalciferol (vitamin D3) 25 mcg (1,000 unit) Tablet 25 mcg PO BID omeprazole 20 mg Tablet,Delayed Release (Dr/Ec) 20 mg PO DAILY linaclotide 145 mcg Capsule 145 mcg PO DAILY diphenhydramine HCl [Benadryl] 25 mg capsule 25 mg PO BEDTIME Qty: 7 0RF cefdinir 300 mg capsule 300 mg PO BID 10 Days Qty: 20 0RF ondansetron HCl [Zofran] 4 mg tablet 4 mg PO Q8H PRN (Reason: nausea and vomiting) Qty: 14 0RF cefuroxime axetil 500 mg tablet 500 mg PO BID 7 Days Qty: 14 0RF meclizine 25 mg tablet 25 mg PO TID PRN (Reason: dizziness) Qty: 10 0RF levofloxacin 500 mg tablet 500 mg PO DAILY 7 Days Qty: 7 0RF cefuroxime axetil 500 mg tablet 500 mg PO BID 10 Days Qty: 20 0RF alprazolam 0.25 mg tablet 0.25 mg PO QID Qty: 7 0RF levofloxacin 500 mg tablet 500 mg PO DAILY Qty: 6 0RF Rx Instructions: start on 08/26 ofloxacin 0.3 % drops 10 drp otic (ears) DAILY 7 Days Qty: 5 0RF Rx Instructions: can substitute eye drops if necessary hydrocortisone 2.5 % cream with perineal applicator 1 appl DE BEDTIME PRN (Reason: hemorrhoids) Qty: 30 0RF Hemorrhoidal(PE-min oil-emma) 0.25-14-74.9 % ointment 1 appl DE BID PRN (Reason: hemorrhoids) Qty: 56 0RF polyethylene glycol 3350 [Miralax] 17 gram/dose powder 17 g PO BID Qty: 119 0RF docusate sodium [Colace] 100 mg capsule 100 mg PO BID PRN (Reason: Constipation) Qty: 14 0RF ofloxacin 0.3 % drops 5 drp otic (ear) left BID 7 Days Qty: 5 0RF alprazolam 0.25 mg tablet 0.25 mg PO TID PRN (Reason: anxiety) Qty: 7 0RF alprazolam [Xanax] 0.5 mg tablet 0.5 mg PO BEDTIME PRN (Reason: anxiety) Qty: 7 0RF metoprolol succinate 50 mg tablet extended release 24 hr 50 mg PO DAILY Qty: 7 0RF Preparation H 0.25-14-74.9 % ointment 1 appl DE BID PRN (Reason: hemorrhoids) Qty: 57 0RF polyethylene glycol 3350 [Miralax] 17 gram/dose powder 17 g PO BID Qty: 119 0RF Preparation H 0.25-14-74.9 % ointment 1 appl DE BID Qty: 28 0RF Preparation H(pe,cb) 0.25-88.44 % suppository 1 supp DE BID Qty: 24 0RF diphenhydramine HCl [Benadryl Allergy] 25 mg tablet 25 mg PO TID PRN (Reason: Pruritus) Qty: 20 0RF loratadine 10 mg tablet 10 mg PO DAILY Qty: 30 0RF fluticasone propionate [Flonase Allergy Relief] 50 mcg/actuation spray,suspension 2 spray intranasal DAILY Qty: 16 0RF Rx Instructions: administer into each nostril Debrox 6.5 % drops 5 drp otic (ear) left DAILY 4 Days Qty: 15 0RF alprazolam 0.25 mg tablet 0.25 mg PO TID PRN (Reason: anxiety) Qty: 3 0RF ondansetron 4 mg tablet,disintegrating 4 mg PO Q8H PRN (Reason: nausea and vomiting) Qty: 10 0RF hydrocortisone 1 % cream 1 appl topical BID PRN (Reason: rash) Qty: 28.4 0RF nitrofurantoin monohyd/m-cryst [Macrobid] 100 mg capsule 100 mg PO Q12H 5 Days Qty: 10 0RF Rx Instructions: must administer with a meal/food cephalexin 500 mg capsule 500 mg PO TID Qty: 15 0RF acetaminophen [Tylenol Extra Strength] 500 mg tablet 500 mg PO Q6H PRN (Reason: pain) Qty: 30 0RF Calmoseptine 0.44-20.6 % ointment 1 appl topical QID PRN (Reason: skin irritation) Qty: 113 0RF magnesium citrate Solution 150 ml PO DAILY PRN (Reason: constipation) Qty: 296 0RF Rx Instructions: take only when needed for constipation hydrocortisone acetate [Anucort-HC] 25 mg suppository 25 mg DE BID Qty: 12 3RF zolpidem [Ambien] 5 mg tablet 5 mg PO BEDTIME PRN (Reason: sleep) Qty: 2 0RF zolpidem [Ambien] 5 mg tablet 5 mg PO BEDTIME PRN (Reason: sleep) Qty: 2 0RF menthol-zinc oxide [Calmoseptine] 0.44-20.6 % ointment 1 appl topical QID PRN (Reason: skin irritation) Qty: 113 0RF Interventions: ED Discharge Assessment Last Done: 01/21/24 05:11 Discharge Date/Time: 01/21/24 05:13 Print Language: Slovak
[2024-01-21] MEDS: hydrOXYzine HCL 25 MG TABLET PO (04:11)
[2024-01-21] MEDS: Ondansetron ODT 4 MG TAB.RAPDIS TRANSLINGU (04:11)
[2024-01-21 04:28] LABS: Basophils Absolute Auto 0.1 X10*3/uL (0.0-0.2); Basophils Percent Auto 0.7 % (0-2); Eosinophils Absolute Auto 0.1 X10*3/uL (0.0-0.4); Eosinophils Percent Auto 0.9 % (0-4); Hematocrit 37.1 % (37.0-47.0); Hemoglobin 12.6 g/dl (12.0-16.0); Imm Gran Abs Auto 0.03 X10*3/uL (0.00-0.03); Imm Gran Pct Auto 0.3 % (0.0-0.4); Lymphocytes Absolute Auto 1.8 X10*3/uL (1.2-4.9); Lymphocytes Percent Auto 20.4 % (20-40); MANUAL DIFF FLAG NO; Mean Corpuscular Hemoglobin 27.9 pg (27.0-33.0); Mean Corpuscular Volume 82.1 fL (80.0-98.0); Mean Platelet Volume 8.4 fL (9.4-12.3); Monocytes Absolute Auto 0.7 X10*3/uL (0.1-1.2); Monocytes Percent Auto 7.8 % (2-11); Neutrophils Absolute Auto 6.2 x10*3/uL (2.0-8.3); Neutrophils Percent Auto 69.9 % (45-73); Platelet Count 320 X10*3/uL (160-400); Red Blood Count 4.52 X10*6/uL (4.20-5.50); Red Cell Distribution Width 13.6 % (11.0-16.0); White Blood Count 8.8 X10*3/uL (4.8-10.8)
[2024-01-21 04:51] LABS: Alanine Aminotransferase 23 U/L (0-31); Albumin Level 4.6 g/dL (3.5-5.0); Alkaline Phosphatase 74 U/L (39-117); Anion Gap 13 (12-20); Aspartate Amino Transferase 31 U/L (5-31); Bilirubin Direct 0.2 mg/dL (0.0-0.5); Bilirubin Total 0.3 mg/dL (0.0-1.0); Blood Urea Nitrogen 22 mg/dL (9-16); Calcium 9.8 mg/dL (8.4-10.2); Carbon Dioxide 28 mmol/L (22-29); Chloride 96 mmol/L (96-108); Creatinine Clr Calc Pharmacy 45.3; Estimated Glomerular Filt Rate 47; Glucose Random 99 mg/dL (60-115); Lipase 25 U/L (8-78); Potassium 4.4 mmol/L (3.3-5.1); Sodium 133 mmol/L (135-145); Total Protein 8.8 g/dL (6.5-8.0)
== END 2024-01-21 05:13 | disposition home or self-care (01) ==
PROVIDERS: Emergency Provider Emergency Medicine
DX: R11.2 Nausea with vomiting, unspecified (principal); R19.7 Diarrhea, unspecified; Z11.52 Encounter for screening for COVID-19; Z20.822 Contact with and (suspected) exposure to COVID-19; Z79.899 Other long term (current) drug therapy
CPT/HCPCS: 0241U; 36415; 80053; 82248; 83690; 85025; 99282; 99283

== ENCOUNTER 2024-01-24 11:21 | Emergency (ER) | payer OTHER, SELFPAY ==
[2024-01-24 11:31] VITALS: BP 137/73; BP 142/62; PULSE 110; PULSE 77; RESP 16; TEMP 36.8; O2SAT 96; O2SAT 99; BMI 26.7
--- NOTE | 2024-01-24 11:43 | ED.ANXIETY ---
HPI - Anxiety General Chief Complaint: Anxiety Stated Complaint: GENERAL MALAISE Time Seen by Provider: 01/24/24 11:36 Source: patient Mode of arrival: ambulatory Limitations: language barrier (Amharic-speaking) History of Present Illness HPI narrative: 78 yo female with PMH of SVT, PACs, cognitive impairment, memory issues, anxiety with frequent visits to the ED with complaints of generalized anxiety requesting Ativan. She reports that she was just admitted at [facility] for 2 days and discharged. She reports that she feels like her heart was going fast and that she needs Ativan to calm her down and calm her heart. She reports she does not want any blood work done she does not want any imaging she does not want an EKG nothing done she just wants Ativan. I explained to her that I can give her Atarax instead of Ativan and she was agreeable to this. She denies any other complaints or concerns at this time. complaint: anxiety Onset (ago): hour(s) Related Data Home Medications Medication Instructions Recorded Confirmed alprazolam 0.5 mg tablet 0.5 mg PO TID PRN Anxiety 08/09/20 01/20/24 aripiprazole 2 mg tablet 2 mg PO BEDTIME 08/09/20 01/20/24 cholecalciferol (vitamin D3) 25 25 mcg PO BID 08/09/20 01/20/24 mcg (1,000 unit) tablet hydroxyzine HCl 50 mg tablet 50 mg PO TID PRN Anxiety 08/09/20 01/20/24 linaclotide 145 mcg capsule 145 mcg PO DAILY 08/09/20 01/20/24 mirtazapine 45 mg tablet 45 mg PO BEDTIME 08/09/20 01/20/24 multivitamin 1 cap PO DAILY 08/09/20 01/20/24 omeprazole 20 mg tablet,delayed 20 mg PO DAILY 08/09/20 01/20/24 release sertraline 50 mg tablet 50 mg PO BEDTIME 08/09/20 01/20/24 Previous Rx's Medication Instructions Recorded escitalopram oxalate 10 mg tablet 10 mg PO DAILY #30 tabs 09/06/20 acetaminophen 325 mg capsule 325 mg PO QID PRN fever or pain 09/16/20 #30 caps aspirin 81 mg tablet,delayed 81 mg PO BEDTIME #90 tabs 09/28/20 release metoprolol succinate 50 mg 50 mg PO DAILY #90 tabs 09/28/20 tablet,extended release 24 hr menthol 0.44 %-zinc oxide 20.6 % 1 appl topical QID PRN skin 12/13/20 topical ointment (Calmoseptine) irritation #113 grams magnesium citrate 150 ml PO DAILY PRN constipation 12/14/20 #296 mL diphenhydramine HCl 25 mg capsule 25 mg PO BEDTIME insomnia #7 caps 12/25/20 (Benadryl) melatonin 10 mg tablet,extended 10 mg PO .nightly #5 tabs 01/07/21 release cefdinir 300 mg capsule 300 mg PO BID Otitis media 10 days 04/14/21 #20 caps ondansetron HCl 4 mg tablet 4 mg PO Q8H PRN nausea and 04/14/21 (Zofran) vomiting #14 tabs metoprolol succinate 50 mg 50 mg PO DAILY #14 tabs 05/22/21 tablet,extended release 24 hr ciprofloxacin 0.3 %-dexamethasone 4 drp otic (ears) BID 7 days 05/26/21 0.1 % ear drops,suspension (Ciprodex) polyethylene glycol 3350 17 17 g PO DAILY PRN constipation 07/31/21 gram/dose oral powder (Miralax) #238 grams hydrocortisone acetate [address] BID #12 ea 08/01/21 rectal suppository (Anucort-HC) cefuroxime axetil 500 mg tablet 500 mg PO BID 7 days #14 tabs 09/01/21 meclizine 25 mg tablet 25 mg PO TID PRN dizziness #10 tabs 09/01/21 zolpidem 5 mg tablet (Ambien) 5 mg PO BEDTIME PRN sleep #2 tabs 10/29/21 zolpidem 5 mg tablet (Ambien) 5 mg PO BEDTIME PRN sleep #2 tabs 10/29/21 levofloxacin 500 mg tablet 500 mg PO DAILY 7 days #7 tabs 07/23/22 levofloxacin 500 mg tablet 500 mg PO DAILY #6 tabs 08/25/22 ofloxacin 0.3 % ear drops 10 drp otic (ears) DAILY 7 days #5 08/25/22 mL hydrocortisone 2.5 % topical cream [address] BEDTIME PRN hemorrhoids 09/20/22 with perineal applicator #30 grams docusate sodium 100 mg capsule 100 mg PO BID PRN Constipation #14 12/06/22 (Colace) caps phenylephrine 0.25 %-mineral oil [address] BID PRN hemorrhoids #56 12/06/22 14 %-petrolatm 74.9 % rectal grams ointment (Hemorrhoidal(phenyleph-min oil-petrolat)) polyethylene glycol 3350 17 17 g PO BID #119 grams 12/06/22 gram/dose oral powder (Miralax) cefuroxime axetil 500 mg tablet 500 mg PO BID 10 days #20 tabs 12/16/22 alprazolam 0.25 mg tablet 0.25 mg PO QID #7 tabs 01/04/23 ofloxacin 0.3 % ear drops 5 drp otic (ear) left BID 7 days 01/06/23 #5 mL alprazolam 0.25 mg tablet 0.25 mg PO TID PRN anxiety #7 tabs 01/11/23 alprazolam 0.25 mg tablet 0.25 mg PO TID PRN anxiety #3 tabs 02/02/23 alprazolam 0.5 mg tablet (Xanax) 0.5 mg PO BEDTIME PRN anxiety #7 04/20/23 tabs metoprolol succinate 50 mg 50 mg PO DAILY #7 tabs 05/18/23 tablet,extended release 24 hr lisinopril 40 mg tablet 40 mg PO QPM #90 tabs 05/22/23 ondansetron 4 mg disintegrating 4 mg PO Q8H PRN nausea and 07/06/23 tablet vomiting #10 tabs hydrocortisone 1 % topical cream 1 appl topical BID PRN rash #28.4 08/03/23 grams phenylephrine 0.25 %-mineral oil [address] BID PRN hemorrhoids #57 08/17/23 14 %-petrolatm 74.9 % rectal grams ointment (Preparation H) polyethylene glycol 3350 17 17 g PO BID #119 grams 08/17/23 gram/dose oral powder (Miralax) diphenhydramine HCl 25 mg tablet 25 mg PO TID PRN Pruritus #20 tabs 08/25/23 (Benadryl Allergy) phenylephrine 0.25 %-cocoa butter [address] BID #24 ea 08/25/23 88.44 % rectal suppository (Preparation H(phenyleph,cocoa buttr)) phenylephrine 0.25 %-mineral oil [address] BID #28 grams 08/25/23 14 %-petrolatm 74.9 % rectal ointment (Preparation H) fluticasone propionate 50 2 spray intranasal DAILY #16 grams 09/16/23 mcg/actuation nasal spray,suspension (Flonase Allergy Relief) loratadine 10 mg tablet 10 mg PO DAILY #30 tabs 09/16/23 menthol 0.44 %-zinc oxide 20.6 % 1 appl topical QID PRN skin 09/22/23 topical ointment (Calmoseptine) irritation #113 grams cephalexin 500 mg capsule 500 mg PO TID #15 caps 10/20/23 nitrofurantoin 100 mg PO Q12H 5 days #10 caps 10/20/23 monohydrate/macrocrystals 100 mg capsule (Macrobid) acetaminophen 500 mg tablet 500 mg PO Q6H PRN pain #30 tabs 12/02/23 (Tylenol Extra Strength) carbamide peroxide 6.5 % ear drops 5 drp otic (ear) left DAILY 4 days 12/04/23 (Debrox) #15 mL Allergies Allergy/AdvReac Type Severity Reaction Status Date / Time penicillin G [Penicillin G] Allergy Severe ITCHY/RASH Verified 01/19/24 04:27 Sulfa (Sulfonamide Allergy Severe ITCHY,RASH, Verified 01/19/24 04:27 Antibiotics) rash [Sulfa (Sulfonamides)] trimethoprim [From Bactrim] Allergy Severe HIVES Verified 01/19/24 04:27 Review of Systems Review of Systems: Constitutional : No Weight loss, No Fever, No Chills, No Night Sweats, No Fatigue, No Malaise ENT/Mouth : No Hearing loss, No Ear Pain, No Nasal Congestion, No Sinus Pain, No Hoarseness, No sore throat, No Rhinorrhea, No Swallowing Difficulty Eyes: No Eye Pain, No Swelling, No Redness, No Foreign Body, No Discharge, No Vision Changes Cardiovascular : No Chest Pain, No SOB, No Dyspnea on Exertion, No Orthopnea, No Edema, + Palpitations Respiratory : No Cough, No Sputum, No Wheezing, No Smoke Exposure, No Dyspnea Gastrointestinal : No Nausea, No Vomiting, No Diarrhea, No Constipation, No abdominal Pain, No Hematochezia, No Melena Genitourinary : no irregular bleeding, No Dysuria, No Urinary Frequency, No Hematuria, No Urinary Incontinence, No Urgency, No Flank Pain, No Urinary Flow Changes, No Hesitancy Musculoskeletal : No joint pain, No Myalgias, No Joint Swelling Skin : No Skin Lesions, No rash Neuro : No Weakness, No Numbness, No Paresthesias, No Loss of Consciousness, No Dizziness, No Headache Psych : + Anxiety/Panic, No Depression, No SI/HI/AH/VH, No Social Issues, Heme/Lymph: No Bruising, No Bleeding,No Lymphadenopathy Endocrine : No Polyuria, No Polydipsia, No Temperature Intolerance Yes all other systems are reviewed and are negative [facility] Past Medical History Attestation statement: The following information was validated with the patient. Source: old records reviewed and nursing notes reviewed Medical History Bleeding hemorrhoids Essential hypertension PVC (premature ventricular contraction) PAC (premature atrial contraction) SVT (supraventricular tachycardia) Chronic constipation High blood pressure Vertigo Dementia Arthritis Anxiety Surgical History No pertinent past surgical history Social History Social History Alcohol intake: never Patient Tobacco Use Status: Never used Tobacco Smoked in Last 30 Days: No Use of substances other than those prescribed or required for medical reasons: No Advance Directives: No Advance Directives Information Provided: No Physical Exam Vital Signs: Vital Signs: Last Vital Signs Temp 98.3 F 01/24/24 11:31 Pulse 77 01/24/24 11:31 Resp 16 01/24/24 11:31 BP 137/73 01/24/24 11:31 Pulse Ox 96 01/24/24 11:31 O2 Del Method Room Air 01/24/24 11:31 BMI result Body Mass Index 26.7 Vital signs reviewed. Blood pressure normal. Pulse normal. Respiration normal. Oxygen normal. Temperature normal. Appearance: Alert. Oriented X3. No acute distress. Head: Normal external exam. Normocephalic. Atraumatic. Eyes: PERRLA. EOMI. Conjunctiva and sclera normal. Eyelids normal. ENT: EAC normal. TM's Normal. Pharynx normal. Uvula midline. Moist mucous membranes. No lesions/ulcerations or masses noted on the tongue. Normal voice. No trismus noted. No drooling noted. No muffled voice noted. Neck: Normal inspection. Neck supple. FROM. No adenopathy. Thyroid Normal. No meningeal signs. CVS: Normal heart rate and rhythm. Heart sound normal. Pulses normal throughout. No murmurs/rales/gallops. Respiratory: No respiratory distress. Painless inspiration. Breath sounds normal. No wheezes/rales/rhonchi noted. Chest nontender. No accessory muscle usage noted or decreased air movement noted. Abdomen: Soft and nontender. Back: Full range of motion noted. Nontender. Skin: Skin warm and dry. Normal skin color. Normal skin turgor. No rashes/lesions/lacerations noted. Extremities: Extremities exhibit normal range of motion and nontender. Neuro: Oriented X 3. No motor deficit. No sensory deficit. Reflexes normal. Normal steady gait. No focal neuro deficits noted. CN's II-XII intact bilaterally? Vascular: + radial pulses. Normal cap refill. No cyanosis noted to upper extremity nails Course Course Course Narrative: This patient presents with symptoms consistent with acute anxiety reaction / panic attack. Low suspicion for acute cardiopulmonary process including ACS, PE, or thoracic aortic dissection. Denies any ingestions or any other medical complaints. No evidence of alcohol withdrawal symptoms. Presentation not consistent with overt toxidrome, ingestion given history & physical. Presentation not consistent with organic or medical emergency at this time. No acute indication for psychiatric consultation (without SI/HI, AH/VH). Cautious return precautions discussed with full understanding. Plan: Gave 1 dose of 50 mg of Atarax here. Instructions return if any new or worsening symptoms follow up with primary care provider. Patient understands agrees with this plan Medical Decision Making Medical Decision Making MDM Narrative: see course Differential Diagnosis Differential Diagnoses: The differential diagnosis associated with the presentation includes see course Independent Historian Patient, medical records and nurse's note External Record Review External record reviewed: Inpatient record, Office record, Outpatient record, Prior outpatient labs, Prior outpatient radiology, Primary care record and Outside ED record All prior labs/imaging/EKG and notes that are accessible in our system reviewed by myself Prescription Management I considered prescription management with: Other (Atarax for anxiety was give no prescriptions will be given) Social Determinants Patient?s care significantly limited by Social Determinants of Health including: Low income, Unemployment and Other Social Determinant of Health Discharge Plan Discharge Clinical Impression: Acute anxiety, Generalized anxiety disorder with panic attacks Patient Disposition: Home, Self-Care Instructions: Anxiety (ED) Prescriptions: No Action escitalopram oxalate 10 mg tablet 10 mg PO DAILY Qty: 30 1RF metoprolol succinate 50 mg tablet extended release 24 hr 50 mg PO DAILY Qty: 90 2RF aspirin 81 mg tablet,delayed release (DR/EC) 81 mg PO BEDTIME Qty: 90 2RF polyethylene glycol 3350 [Miralax] 17 gram/dose powder 17 g PO DAILY PRN (Reason: constipation) Qty: 238 0RF lisinopril 40 mg tablet 40 mg PO QPM Qty: 90 0RF Rx Instructions: Please call and schedule cardiology appt acetaminophen 325 mg capsule 325 mg PO QID PRN (Reason: fever or pain) Qty: 30 0RF melatonin 10 mg tablet extended release 10 mg PO .nightly Qty: 5 0RF metoprolol succinate 50 mg tablet extended release 24 hr 50 mg PO DAILY Qty: 14 0RF ciprofloxacin-dexamethasone [Ciprodex] 0.3-0.1 % drops,suspension 4 drp otic (ears) BID 7 Days 0RF alprazolam 0.5 mg Tablet 0.5 mg PO TID PRN (Reason: Anxiety) hydroxyzine HCl 50 mg Tablet 50 mg PO TID PRN (Reason: Anxiety) mirtazapine 45 mg Tablet 45 mg PO BEDTIME multivitamin Capsule 1 cap PO DAILY sertraline 50 mg Tablet 50 mg PO BEDTIME aripiprazole 2 mg Tablet 2 mg PO BEDTIME cholecalciferol (vitamin D3) 25 mcg (1,000 unit) Tablet 25 mcg PO BID omeprazole 20 mg Tablet,Delayed Release (Dr/Ec) 20 mg PO DAILY linaclotide 145 mcg Capsule 145 mcg PO DAILY diphenhydramine HCl [Benadryl] 25 mg capsule 25 mg PO BEDTIME Qty: 7 0RF cefdinir 300 mg capsule 300 mg PO BID 10 Days Qty: 20 0RF ondansetron HCl [Zofran] 4 mg tablet 4 mg PO Q8H PRN (Reason: nausea and vomiting) Qty: 14 0RF cefuroxime axetil 500 mg tablet 500 mg PO BID 7 Days Qty: 14 0RF meclizine 25 mg tablet 25 mg PO TID PRN (Reason: dizziness) Qty: 10 0RF levofloxacin 500 mg tablet 500 mg PO DAILY 7 Days Qty: 7 0RF cefuroxime axetil 500 mg tablet 500 mg PO BID 10 Days Qty: 20 0RF alprazolam 0.25 mg tablet 0.25 mg PO QID Qty: 7 0RF levofloxacin 500 mg tablet 500 mg PO DAILY Qty: 6 0RF Rx Instructions: start on 08/26 ofloxacin 0.3 % drops 10 drp otic (ears) DAILY 7 Days Qty: 5 0RF Rx Instructions: can substitute eye drops if necessary hydrocortisone 2.5 % cream with perineal applicator [address] BEDTIME PRN (Reason: hemorrhoids) Qty: 30 0RF Hemorrhoidal(PE-min oil-emma) 0.25-14-74.9 % ointment [address] BID PRN (Reason: hemorrhoids) Qty: 56 0RF polyethylene glycol 3350 [Miralax] 17 gram/dose powder 17 g PO BID Qty: 119 0RF docusate sodium [Colace] 100 mg capsule 100 mg PO BID PRN (Reason: Constipation) Qty: 14 0RF ofloxacin 0.3 % drops 5 drp otic (ear) left BID 7 Days Qty: 5 0RF alprazolam 0.25 mg tablet 0.25 mg PO TID PRN (Reason: anxiety) Qty: 7 0RF alprazolam [Xanax] 0.5 mg tablet 0.5 mg PO BEDTIME PRN (Reason: anxiety) Qty: 7 0RF metoprolol succinate 50 mg tablet extended release 24 hr 50 mg PO DAILY Qty: 7 0RF Preparation H 0.25-14-74.9 % ointment [address] BID PRN (Reason: hemorrhoids) Qty: 57 0RF polyethylene glycol 3350 [Miralax] 17 gram/dose powder 17 g PO BID Qty: 119 0RF Preparation H 0.25-14-74.9 % ointment [address] BID Qty: 28 0RF Preparation H(pe,cb) 0.25-88.44 % suppository [address] BID Qty: 24 0RF diphenhydramine HCl [Benadryl Allergy] 25 mg tablet 25 mg PO TID PRN (Reason: Pruritus) Qty: 20 0RF loratadine 10 mg tablet 10 mg PO DAILY Qty: 30 0RF fluticasone propionate [Flonase Allergy Relief] 50 mcg/actuation spray,suspension 2 spray intranasal DAILY Qty: 16 0RF Rx Instructions: administer into each nostril Debrox 6.5 % drops 5 drp otic (ear) left DAILY 4 Days Qty: 15 0RF alprazolam 0.25 mg tablet 0.25 mg PO TID PRN (Reason: anxiety) Qty: 3 0RF ondansetron 4 mg tablet,disintegrating 4 mg PO Q8H PRN (Reason: nausea and vomiting) Qty: 10 0RF hydrocortisone 1 % cream 1 appl topical BID PRN (Reason: rash) Qty: 28.4 0RF nitrofurantoin monohyd/m-cryst [Macrobid] 100 mg capsule 100 mg PO Q12H 5 Days Qty: 10 0RF Rx Instructions: must administer with a meal/food cephalexin 500 mg capsule 500 mg PO TID Qty: 15 0RF acetaminophen [Tylenol Extra Strength] 500 mg tablet 500 mg PO Q6H PRN (Reason: pain) Qty: 30 0RF Calmoseptine 0.44-20.6 % ointment 1 appl topical QID PRN (Reason: skin irritation) Qty: 113 0RF magnesium citrate Solution 150 ml PO DAILY PRN (Reason: constipation) Qty: 296 0RF Rx Instructions: take only when needed for constipation hydrocortisone acetate [Anucort-HC] 25 mg suppository [address] BID Qty: 12 3RF zolpidem [Ambien] 5 mg tablet 5 mg PO BEDTIME PRN (Reason: sleep) Qty: 2 0RF zolpidem [Ambien] 5 mg tablet 5 mg PO BEDTIME PRN (Reason: sleep) Qty: 2 0RF menthol-zinc oxide [Calmoseptine] 0.44-20.6 % ointment 1 appl topical QID PRN (Reason: skin irritation) Qty: 113 0RF Print Language: Amharic
[2024-01-24] MEDS: hydrOXYzine HCL 50 MG TABLET PO (12:06)
[2024-01-24 12:09] VITALS: BP 126/65; PULSE 77; RESP 16; TEMP 36.4; O2SAT 98
== END 2024-01-24 12:11 | disposition home or self-care (01) ==
PROVIDERS: Emergency Provider Emergency Medicine; PCP Internal Medicine Geriatric Medicine
DX: F41.1 Generalized anxiety disorder (principal); F41.0 Panic disorder [episodic paroxysmal anxiety]
CPT/HCPCS: 99283; 99284

== ENCOUNTER 2024-01-25 21:41 | Emergency (ER) | payer OTHER, SELFPAY ==
[2024-01-25 21:50] VITALS: BP 130/70; BP 132/68; PULSE 75; PULSE 84; RESP 18; TEMP 37.2; O2SAT 96; O2SAT 97; BMI 28.7
--- NOTE | 2024-01-25 22:11 | ED.FEMALEGU ---
HPI - Female Genitourinary General Chief complaint: Urogenital-Female Stated complaint: CANNOT URINATE Time Seen by Provider: 01/25/24 21:57 Source: patient and poultry boner Mode of arrival: EMS History of Present Illness HPI Narrative: 78-year-old female who presents via EMS with complaints of inability to urinate and states that she is able to get small amounts out if she bends over compressing her bladder. Otherwise, she denies any lower extremity numbness/tingling/weakness and denies any difficulty with defecation. Related Data Home Medications Medication Instructions Recorded Confirmed alprazolam 0.5 mg tablet 0.5 mg PO TID PRN Anxiety 08/09/20 01/20/24 aripiprazole 2 mg tablet 2 mg PO BEDTIME 08/09/20 01/20/24 cholecalciferol (vitamin D3) 25 25 mcg PO BID 08/09/20 01/20/24 mcg (1,000 unit) tablet hydroxyzine HCl 50 mg tablet 50 mg PO TID PRN Anxiety 08/09/20 01/20/24 linaclotide 145 mcg capsule 145 mcg PO DAILY 08/09/20 01/20/24 mirtazapine 45 mg tablet 45 mg PO BEDTIME 08/09/20 01/20/24 multivitamin 1 cap PO DAILY 08/09/20 01/20/24 omeprazole 20 mg tablet,delayed 20 mg PO DAILY 08/09/20 01/20/24 release sertraline 50 mg tablet 50 mg PO BEDTIME 08/09/20 01/20/24 Previous Rx's Medication Instructions Recorded escitalopram oxalate 10 mg tablet 10 mg PO DAILY #30 tabs 09/06/20 acetaminophen 325 mg capsule 325 mg PO QID PRN fever or pain 09/16/20 #30 caps aspirin 81 mg tablet,delayed 81 mg PO BEDTIME #90 tabs 09/28/20 release metoprolol succinate 50 mg 50 mg PO DAILY #90 tabs 09/28/20 tablet,extended release 24 hr menthol 0.44 %-zinc oxide 20.6 % 1 appl topical QID PRN skin 12/13/20 topical ointment (Calmoseptine) irritation #113 grams magnesium citrate 150 ml PO DAILY PRN constipation 12/14/20 #296 mL diphenhydramine HCl 25 mg capsule 25 mg PO BEDTIME insomnia #7 caps 12/25/20 (Benadryl) melatonin 10 mg tablet,extended 10 mg PO .nightly #5 tabs 01/07/21 release cefdinir 300 mg capsule 300 mg PO BID Otitis media 10 days 04/14/21 #20 caps ondansetron HCl 4 mg tablet 4 mg PO Q8H PRN nausea and 04/14/21 (Zofran) vomiting #14 tabs metoprolol succinate 50 mg 50 mg PO DAILY #14 tabs 05/22/21 tablet,extended release 24 hr ciprofloxacin 0.3 %-dexamethasone 4 drp otic (ears) BID 7 days 05/26/21 0.1 % ear drops,suspension (Ciprodex) polyethylene glycol 3350 17 17 g PO DAILY PRN constipation 07/31/21 gram/dose oral powder (Miralax) #238 grams hydrocortisone acetate 25 mg 25 mg TN BID #12 ea 08/01/21 rectal suppository (Anucort-HC) cefuroxime axetil 500 mg tablet 500 mg PO BID 7 days #14 tabs 09/01/21 meclizine 25 mg tablet 25 mg PO TID PRN dizziness #10 tabs 09/01/21 zolpidem 5 mg tablet (Ambien) 5 mg PO BEDTIME PRN sleep #2 tabs 10/29/21 zolpidem 5 mg tablet (Ambien) 5 mg PO BEDTIME PRN sleep #2 tabs 10/29/21 levofloxacin 500 mg tablet 500 mg PO DAILY 7 days #7 tabs 07/23/22 levofloxacin 500 mg tablet 500 mg PO DAILY #6 tabs 08/25/22 ofloxacin 0.3 % ear drops 10 drp otic (ears) DAILY 7 days #5 08/25/22 mL hydrocortisone 2.5 % topical cream 1 appl TN BEDTIME PRN hemorrhoids 09/20/22 with perineal applicator #30 grams docusate sodium 100 mg capsule 100 mg PO BID PRN Constipation #14 12/06/22 (Colace) caps phenylephrine 0.25 %-mineral oil 1 appl TN BID PRN hemorrhoids #56 12/06/22 14 %-petrolatm 74.9 % rectal grams ointment (Hemorrhoidal(phenyleph-min oil-petrolat)) polyethylene glycol 3350 17 17 g PO BID #119 grams 12/06/22 gram/dose oral powder (Miralax) cefuroxime axetil 500 mg tablet 500 mg PO BID 10 days #20 tabs 12/16/22 alprazolam 0.25 mg tablet 0.25 mg PO QID #7 tabs 01/04/23 ofloxacin 0.3 % ear drops 5 drp otic (ear) left BID 7 days 01/06/23 #5 mL alprazolam 0.25 mg tablet 0.25 mg PO TID PRN anxiety #7 tabs 01/11/23 alprazolam 0.25 mg tablet 0.25 mg PO TID PRN anxiety #3 tabs 02/02/23 alprazolam 0.5 mg tablet (Xanax) 0.5 mg PO BEDTIME PRN anxiety #7 04/20/23 tabs metoprolol succinate 50 mg 50 mg PO DAILY #7 tabs 05/18/23 tablet,extended release 24 hr lisinopril 40 mg tablet 40 mg PO QPM #90 tabs 05/22/23 ondansetron 4 mg disintegrating 4 mg PO Q8H PRN nausea and 07/06/23 tablet vomiting #10 tabs hydrocortisone 1 % topical cream 1 appl topical BID PRN rash #28.4 08/03/23 grams phenylephrine 0.25 %-mineral oil 1 appl TN BID PRN hemorrhoids #57 08/17/23 14 %-petrolatm 74.9 % rectal grams ointment (Preparation H) polyethylene glycol 3350 17 17 g PO BID #119 grams 08/17/23 gram/dose oral powder (Miralax) diphenhydramine HCl 25 mg tablet 25 mg PO TID PRN Pruritus #20 tabs 08/25/23 (Benadryl Allergy) phenylephrine 0.25 %-cocoa butter 1 supp TN BID #24 ea 08/25/23 88.44 % rectal suppository (Preparation H(phenyleph,cocoa buttr)) phenylephrine 0.25 %-mineral oil 1 appl TN BID #28 grams 08/25/23 14 %-petrolatm 74.9 % rectal ointment (Preparation H) fluticasone propionate 50 2 spray intranasal DAILY #16 grams 09/16/23 mcg/actuation nasal spray,suspension (Flonase Allergy Relief) loratadine 10 mg tablet 10 mg PO DAILY #30 tabs 09/16/23 menthol 0.44 %-zinc oxide 20.6 % 1 appl topical QID PRN skin 09/22/23 topical ointment (Calmoseptine) irritation #113 grams cephalexin 500 mg capsule 500 mg PO TID #15 caps 10/20/23 nitrofurantoin 100 mg PO Q12H 5 days #10 caps 10/20/23 monohydrate/macrocrystals 100 mg capsule (Macrobid) acetaminophen 500 mg tablet 500 mg PO Q6H PRN pain #30 tabs 12/02/23 (Tylenol Extra Strength) carbamide peroxide 6.5 % ear drops 5 drp otic (ear) left DAILY 4 days 12/04/23 (Debrox) #15 mL Allergies Allergy/AdvReac Type Severity Reaction Status Date / Time penicillin G [Penicillin G] Allergy Severe ITCHY/RASH Verified 01/19/24 04:27 Sulfa (Sulfonamide Allergy Severe ITCHY,RASH, Verified 01/19/24 04:27 Antibiotics) rash [Sulfa (Sulfonamides)] trimethoprim [From Bactrim] Allergy Severe HIVES Verified 01/19/24 04:27 Review of Systems Review of Systems: Pertinent positives and negatives as stated in HPI PMFSH Past Medical History Source: nursing notes reviewed Medical History Bleeding hemorrhoids Essential hypertension PVC (premature ventricular contraction) PAC (premature atrial contraction) SVT (supraventricular tachycardia) Chronic constipation High blood pressure Vertigo Dementia Arthritis Anxiety Surgical History No pertinent past surgical history Social History Social History Alcohol intake: never Patient Tobacco Use Status: Never used Tobacco Advance Directives: No Advance Directives Information Provided: No Physical Exam Vital Signs: Vital Signs: Last Vital Signs Temp 98.9 F 01/25/24 21:50 Pulse 84 01/25/24 21:50 Resp 18 01/25/24 21:50 BP 132/68 01/25/24 21:50 Pulse Ox 97 01/25/24 21:50 O2 Del Method Room Air 01/25/24 21:50 BMI result Body Mass Index 28.7 VITAL SIGNS: Reviewed. GENERAL: Well developed, well nourished, in no acute distress. HEAD: Normocephalic/atraumatic, EYES: PERRLA, EOMI intact without pain, no nystagmus/pallor/icterus noted EARS: Ext canals without abnormality, TMs non-bulging and non-erythematous NOSE: Nares patent bilateral OROPHARYNX: no oral lesions noted, posterior pharynx clear and non-erythematous without noted tonsillar enlargement/erythema/exudates NECK: Supple, no adenopathy LUNGS: Normal breath sounds. No adventitious sounds or accessory muscle use. SpO2<97> CARDIOVASCULAR: Regular rate and rhythm without noted murmurs, no JVD or lower extremity edema. ABDOMEN: Soft, non-tender, non-distended with bowel sounds. MUSCULOSKELETAL: No tenderness, deformities, or effusions noted on gross inspection. EXTREMITIES: No cyanosis, clubbing or edema. SKIN: Inspection of the skin reveals no rashes NEUROLOGIC: Alert and oriented x 4. Strength and sensation to light touch were grossly intact x 4. Medical Decision Making Medical Decision Making [facility] Narrative: 78-year-old female with history and clinical presentation, DDX: Urinary retention secondary to infection versus medication. Bladder scan-over 600 cc Intervention: Shen catheter insertion, urinalysis. Shen catheter successfully place with good release of clear yellow urine, urinalysis is negative for urinary tract infection and therefore my interpretation is that patient has experienced urinary retention secondary to medications. She will be discharged with Shen catheter and leg bag and follow-up with primary care provider. Differential Diagnosis Differential Diagnoses: The differential diagnosis associated with the presentation includes Please see the discussion above Admission/Observation Consideration of admission/observation: Escalation of care including admission/observation considered Please see the discussion above Lab Data [facility] Lab Attestation statement: I reviewed the patient's lab results. Please see the discussion above Labs: Lab Results 01/25/24 Range/Units 22:53 Urine Color Yellow Urine Appearance Clear Urine pH 5.5 (5.0-9.0) Ur Specific Melvin 1.015 (1.005-1.025) Urine Protein Negative (Neg-Trace) mg/dL Urine Glucose (UA) Negative (Negative) mg/dL Urine Ketones Negative (Negative) mg/dL Urine Blood Negative (Negative) Urine Nitrite Negative (Negative) Ur Leukocyte Esterase Negative (Negative) Discharge Plan Discharge Clinical Impression: Urinary retention, Difficult Shen catheter placement Patient Disposition: Home, Self-Care Instructions: Chronic Urinary Retention in Women (ED), Shen Catheter Placement and Care (ED) Additional Instructions: Follow-up with your primary care doctor on Friday by calling the office. You have been given a referral to follow-up with urology, that is located below and you should call the office on Friday. Return to the ER for any worsening symptoms. Prescriptions: No Action escitalopram oxalate 10 mg tablet 10 mg PO DAILY Qty: 30 1RF metoprolol succinate 50 mg tablet extended release 24 hr 50 mg PO DAILY Qty: 90 2RF aspirin 81 mg tablet,delayed release (DR/EC) 81 mg PO BEDTIME Qty: 90 2RF polyethylene glycol 3350 [Miralax] 17 gram/dose powder 17 g PO DAILY PRN (Reason: constipation) Qty: 238 0RF lisinopril 40 mg tablet 40 mg PO QPM Qty: 90 0RF Rx Instructions: Please call and schedule cardiology appt acetaminophen 325 mg capsule 325 mg PO QID PRN (Reason: fever or pain) Qty: 30 0RF melatonin 10 mg tablet extended release 10 mg PO .nightly Qty: 5 0RF metoprolol succinate 50 mg tablet extended release 24 hr 50 mg PO DAILY Qty: 14 0RF ciprofloxacin-dexamethasone [Ciprodex] 0.3-0.1 % drops,suspension 4 drp otic (ears) BID 7 Days 0RF alprazolam 0.5 mg Tablet 0.5 mg PO TID PRN (Reason: Anxiety) hydroxyzine HCl 50 mg Tablet 50 mg PO TID PRN (Reason: Anxiety) mirtazapine 45 mg Tablet 45 mg PO BEDTIME multivitamin Capsule 1 cap PO DAILY sertraline 50 mg Tablet 50 mg PO BEDTIME aripiprazole 2 mg Tablet 2 mg PO BEDTIME cholecalciferol (vitamin D3) 25 mcg (1,000 unit) Tablet 25 mcg PO BID omeprazole 20 mg Tablet,Delayed Release (Dr/Ec) 20 mg PO DAILY linaclotide 145 mcg Capsule 145 mcg PO DAILY diphenhydramine HCl [Benadryl] 25 mg capsule 25 mg PO BEDTIME Qty: 7 0RF cefdinir 300 mg capsule 300 mg PO BID 10 Days Qty: 20 0RF ondansetron HCl [Zofran] 4 mg tablet 4 mg PO Q8H PRN (Reason: nausea and vomiting) Qty: 14 0RF cefuroxime axetil 500 mg tablet 500 mg PO BID 7 Days Qty: 14 0RF meclizine 25 mg tablet 25 mg PO TID PRN (Reason: dizziness) Qty: 10 0RF levofloxacin 500 mg tablet 500 mg PO DAILY 7 Days Qty: 7 0RF cefuroxime axetil 500 mg tablet 500 mg PO BID 10 Days Qty: 20 0RF alprazolam 0.25 mg tablet 0.25 mg PO QID Qty: 7 0RF levofloxacin 500 mg tablet 500 mg PO DAILY Qty: 6 0RF Rx Instructions: start on 08/26 ofloxacin 0.3 % drops 10 drp otic (ears) DAILY 7 Days Qty: 5 0RF Rx Instructions: can substitute eye drops if necessary hydrocortisone 2.5 % cream with perineal applicator 1 appl TN BEDTIME PRN (Reason: hemorrhoids) Qty: 30 0RF Hemorrhoidal(PE-min oil-emma) 0.25-14-74.9 % ointment 1 appl TN BID PRN (Reason: hemorrhoids) Qty: 56 0RF polyethylene glycol 3350 [Miralax] 17 gram/dose powder 17 g PO BID Qty: 119 0RF docusate sodium [Colace] 100 mg capsule 100 mg PO BID PRN (Reason: Constipation) Qty: 14 0RF ofloxacin 0.3 % drops 5 drp otic (ear) left BID 7 Days Qty: 5 0RF alprazolam 0.25 mg tablet 0.25 mg PO TID PRN (Reason: anxiety) Qty: 7 0RF alprazolam [Xanax] 0.5 mg tablet 0.5 mg PO BEDTIME PRN (Reason: anxiety) Qty: 7 0RF metoprolol succinate 50 mg tablet extended release 24 hr 50 mg PO DAILY Qty: 7 0RF Preparation H 0.25-14-74.9 % ointment 1 appl TN BID PRN (Reason: hemorrhoids) Qty: 57 0RF polyethylene glycol 3350 [Miralax] 17 gram/dose powder 17 g PO BID Qty: 119 0RF Preparation H 0.25-14-74.9 % ointment 1 appl TN BID Qty: 28 0RF Preparation H(pe,cb) 0.25-88.44 % suppository 1 supp TN BID Qty: 24 0RF diphenhydramine HCl [Benadryl Allergy] 25 mg tablet 25 mg PO TID PRN (Reason: Pruritus) Qty: 20 0RF loratadine 10 mg tablet 10 mg PO DAILY Qty: 30 0RF fluticasone propionate [Flonase Allergy Relief] 50 mcg/actuation spray,suspension 2 spray intranasal DAILY Qty: 16 0RF Rx Instructions: administer into each nostril Debrox 6.5 % drops 5 drp otic (ear) left DAILY 4 Days Qty: 15 0RF alprazolam 0.25 mg tablet 0.25 mg PO TID PRN (Reason: anxiety) Qty: 3 0RF ondansetron 4 mg tablet,disintegrating 4 mg PO Q8H PRN (Reason: nausea and vomiting) Qty: 10 0RF hydrocortisone 1 % cream 1 appl topical BID PRN (Reason: rash) Qty: 28.4 0RF nitrofurantoin monohyd/m-cryst [Macrobid] 100 mg capsule 100 mg PO Q12H 5 Days Qty: 10 0RF Rx Instructions: must administer with a meal/food cephalexin 500 mg capsule 500 mg PO TID Qty: 15 0RF acetaminophen [Tylenol Extra Strength] 500 mg tablet 500 mg PO Q6H PRN (Reason: pain) Qty: 30 0RF Calmoseptine 0.44-20.6 % ointment 1 appl topical QID PRN (Reason: skin irritation) Qty: 113 0RF magnesium citrate Solution 150 ml PO DAILY PRN (Reason: constipation) Qty: 296 0RF Rx Instructions: take only when needed for constipation hydrocortisone acetate [Anucort-HC] 25 mg suppository 25 mg TN BID Qty: 12 3RF zolpidem [Ambien] 5 mg tablet 5 mg PO BEDTIME PRN (Reason: sleep) Qty: 2 0RF zolpidem [Ambien] 5 mg tablet 5 mg PO BEDTIME PRN (Reason: sleep) Qty: 2 0RF menthol-zinc oxide [Calmoseptine] 0.44-20.6 % ointment 1 appl topical QID PRN (Reason: skin irritation) Qty: 113 0RF Referrals: Ryan Anderson MD [Physician] - Print Language: Syriac
[2024-01-25 22:59] LABS: Appearance Urine Clear; Color Urine Yellow; Glucose Urine UA Negative (Negative); Leukocyte Esterase Urine Negative (Negative); Nitrite Urine Negative (Negative); PH 5.5 (5.0-9.0); Specific Gravity - Urine 1.015 (1.005-1.025); Urine Blood Negative (Negative); Urine Ketones Negative (Negative); Urine Protein Negative (Neg-Trace)
[2024-01-26 02:00] VITALS: BP 137/78; PULSE 82; RESP 16; TEMP 36.8; O2SAT 97
[2024-01-26 02:18] VITALS: BP 137/78; PULSE 82; RESP 16; TEMP 36.8; O2SAT 97
== END 2024-01-26 02:22 | disposition home or self-care (01) ==
PROVIDERS: Emergency Provider Student in an Organized Health Care Education/Training Program
DX: R33.9 Retention of urine, unspecified (principal); I10 Essential (primary) hypertension
CPT/HCPCS: 51702; 51798; 81003; 99283; 99285

== ENCOUNTER 2024-01-26 07:27 | Emergency (ER) | payer OTHER, SELFPAY ==
[2024-01-26 07:38] VITALS: BP 147/71; PULSE 110; PULSE 98; RESP 18; TEMP 37.2; O2SAT 98; BMI 31.6
--- NOTE | 2024-01-26 07:44 | ED.FEMALEGU ---
HPI - Female Genitourinary General Chief complaint: Urogenital-Female Stated complaint: ABD PAIN ANXIETY Time Seen by Provider: 01/26/24 07:28 Source: patient, EMS, old records reviewed and alcohol and drug counselor Mode of arrival: EMS Limitations: no limitations History of Present Illness HPI Narrative: 78 yo female with anxiety, arthritis, urinary retention s/p bunn last night, PVC, cognitive impairment who comes in with c/o feeling her catheter empties then fills empties then fills. She then cries and states no one is around to help her. She was then offered rehab and states she doesn't need it she has a [employer] GRADER. She then asks for anxiety medications. She denies pain now. She is very worried. The patient seems to lack understanding of what is going on. MD elicited complaint: other (bunn catheter care) Onset (ago): day(s) (1) Location of symptoms: suprapubic Severity: mild Female Urogenital Radiation: Non-Radiating Quality of pain: dull Consistency: intermittent Vaginal bleeding: none Exacerbating factors: none Relieving factors: none Associated symptoms: other (anxiety) Related Data Home Medications Medication Instructions Recorded Confirmed alprazolam 0.5 mg tablet 0.5 mg PO TID PRN Anxiety 08/09/20 01/20/24 aripiprazole 2 mg tablet 2 mg PO BEDTIME 08/09/20 01/20/24 cholecalciferol (vitamin D3) 25 25 mcg PO BID 08/09/20 01/20/24 mcg (1,000 unit) tablet hydroxyzine HCl 50 mg tablet 50 mg PO TID PRN Anxiety 08/09/20 01/20/24 linaclotide 145 mcg capsule 145 mcg PO DAILY 08/09/20 01/20/24 mirtazapine 45 mg tablet 45 mg PO BEDTIME 08/09/20 01/20/24 multivitamin 1 cap PO DAILY 08/09/20 01/20/24 omeprazole 20 mg tablet,delayed 20 mg PO DAILY 08/09/20 01/20/24 release sertraline 50 mg tablet 50 mg PO BEDTIME 08/09/20 01/20/24 Previous Rx's Medication Instructions Recorded escitalopram oxalate 10 mg tablet 10 mg PO DAILY #30 tabs 09/06/20 acetaminophen 325 mg capsule 325 mg PO QID PRN fever or pain 09/16/20 #30 caps aspirin 81 mg tablet,delayed 81 mg PO BEDTIME #90 tabs 09/28/20 release metoprolol succinate 50 mg 50 mg PO DAILY #90 tabs 09/28/20 tablet,extended release 24 hr menthol 0.44 %-zinc oxide 20.6 % 1 appl topical QID PRN skin 12/13/20 topical ointment (Calmoseptine) irritation #113 grams magnesium citrate 150 ml PO DAILY PRN constipation 12/14/20 #296 mL diphenhydramine HCl 25 mg capsule 25 mg PO BEDTIME insomnia #7 caps 12/25/20 (Benadryl) melatonin 10 mg tablet,extended 10 mg PO .nightly #5 tabs 01/07/21 release cefdinir 300 mg capsule 300 mg PO BID Otitis media 10 days 04/14/21 #20 caps ondansetron HCl 4 mg tablet 4 mg PO Q8H PRN nausea and 04/14/21 (Zofran) vomiting #14 tabs metoprolol succinate 50 mg 50 mg PO DAILY #14 tabs 05/22/21 tablet,extended release 24 hr ciprofloxacin 0.3 %-dexamethasone 4 drp otic (ears) BID 7 days 05/26/21 0.1 % ear drops,suspension (Ciprodex) polyethylene glycol 3350 17 17 g PO DAILY PRN constipation 07/31/21 gram/dose oral powder (Miralax) #238 grams hydrocortisone acetate 25 mg 25 mg [place] BID #12 ea 08/01/21 rectal suppository (Anucort-HC) cefuroxime axetil 500 mg tablet 500 mg PO BID 7 days #14 tabs 09/01/21 meclizine 25 mg tablet 25 mg PO TID PRN dizziness #10 tabs 09/01/21 zolpidem 5 mg tablet (Ambien) 5 mg PO BEDTIME PRN sleep #2 tabs 10/29/21 zolpidem 5 mg tablet (Ambien) 5 mg PO BEDTIME PRN sleep #2 tabs 10/29/21 levofloxacin 500 mg tablet 500 mg PO DAILY 7 days #7 tabs 07/23/22 levofloxacin 500 mg tablet 500 mg PO DAILY #6 tabs 08/25/22 ofloxacin 0.3 % ear drops 10 drp otic (ears) DAILY 7 days #5 08/25/22 mL hydrocortisone 2.5 % topical cream 1 appl NH BEDTIME PRN hemorrhoids 09/20/22 with perineal applicator #30 grams docusate sodium 100 mg capsule 100 mg PO BID PRN Constipation #14 12/06/22 (Colace) caps phenylephrine 0.25 %-mineral oil 1 appl NH BID PRN hemorrhoids #56 12/06/22 14 %-petrolatm 74.9 % rectal grams ointment (Hemorrhoidal(phenyleph-min oil-petrolat)) polyethylene glycol 3350 17 17 g PO BID #119 grams 12/06/22 gram/dose oral powder (Miralax) cefuroxime axetil 500 mg tablet 500 mg PO BID 10 days #20 tabs 12/16/22 alprazolam 0.25 mg tablet 0.25 mg PO QID #7 tabs 01/04/23 ofloxacin 0.3 % ear drops 5 drp otic (ear) left BID 7 days 01/06/23 #5 mL alprazolam 0.25 mg tablet 0.25 mg PO TID PRN anxiety #7 tabs 01/11/23 alprazolam 0.25 mg tablet 0.25 mg PO TID PRN anxiety #3 tabs 02/02/23 alprazolam 0.5 mg tablet (Xanax) 0.5 mg PO BEDTIME PRN anxiety #7 04/20/23 tabs metoprolol succinate 50 mg 50 mg PO DAILY #7 tabs 05/18/23 tablet,extended release 24 hr lisinopril 40 mg tablet 40 mg PO QPM #90 tabs 05/22/23 ondansetron 4 mg disintegrating 4 mg PO Q8H PRN nausea and 07/06/23 tablet vomiting #10 tabs hydrocortisone 1 % topical cream 1 appl topical BID PRN rash #28.4 08/03/23 grams phenylephrine 0.25 %-mineral oil 1 appl NH BID PRN hemorrhoids #57 08/17/23 14 %-petrolatm 74.9 % rectal grams ointment (Preparation H) polyethylene glycol 3350 17 17 g PO BID #119 grams 08/17/23 gram/dose oral powder (Miralax) diphenhydramine HCl 25 mg tablet 25 mg PO TID PRN Pruritus #20 tabs 08/25/23 (Benadryl Allergy) phenylephrine 0.25 %-cocoa butter 1 supp NH BID #24 ea 08/25/23 88.44 % rectal suppository (Preparation H(phenyleph,cocoa buttr)) phenylephrine 0.25 %-mineral oil 1 appl NH BID #28 grams 08/25/23 14 %-petrolatm 74.9 % rectal ointment (Preparation H) fluticasone propionate 50 2 spray intranasal DAILY #16 grams 09/16/23 mcg/actuation nasal spray,suspension (Flonase Allergy Relief) loratadine 10 mg tablet 10 mg PO DAILY #30 tabs 09/16/23 menthol 0.44 %-zinc oxide 20.6 % 1 appl topical QID PRN skin 09/22/23 topical ointment (Calmoseptine) irritation #113 grams cephalexin 500 mg capsule 500 mg PO TID #15 caps 10/20/23 nitrofurantoin 100 mg PO Q12H 5 days #10 caps 10/20/23 monohydrate/macrocrystals 100 mg capsule (Macrobid) acetaminophen 500 mg tablet 500 mg PO Q6H PRN pain #30 tabs 12/02/23 (Tylenol Extra Strength) carbamide peroxide 6.5 % ear drops 5 drp otic (ear) left DAILY 4 days 12/04/23 (Debrox) #15 mL Allergies Allergy/AdvReac Type Severity Reaction Status Date / Time penicillin G [Penicillin G] Allergy Severe ITCHY/RASH Verified 01/19/24 04:27 Sulfa (Sulfonamide Allergy Severe ITCHY,RASH, Verified 01/19/24 04:27 Antibiotics) rash [Sulfa (Sulfonamides)] trimethoprim [From Bactrim] Allergy Severe HIVES Verified 01/19/24 04:27 Review of Systems Review of Systems: Constitutional : No Fever, No Chills ENT/Mouth : No Ear Pain, No Nasal Congestion, No sore throat Eyes: No Eye Pain, No Swelling, No Redness Cardiovascular : No Chest Pain, No SOB Respiratory : No Cough, No Sputum, No Dyspnea Gastrointestinal : No Nausea, No Vomiting, No Diarrhea, No Hematochezia, No Melena Genitourinary : No Dysuria, No Urinary Frequency, No Hematuria Musculoskeletal : No Myalgias Skin : No Skin Lesions, No rash Neuro : No Weakness, No Numbness, No Paresthesias, No Dizziness, No Headache Psych : positive Anxiety, positive Depression, no SI/HI All other systems reviewed and are negative [facility] Past Medical History Attestation statement: The following information was validated with the patient. Source: old records reviewed Medical History Bleeding hemorrhoids Essential hypertension PVC (premature ventricular contraction) PAC (premature atrial contraction) SVT (supraventricular tachycardia) Chronic constipation High blood pressure Vertigo Dementia Arthritis Anxiety Surgical History No pertinent past surgical history Social History Social History Alcohol intake: never Patient Tobacco Use Status: Never used Tobacco Smoked in Last 30 Days: No Use of substances other than those prescribed or required for medical reasons: No Advance Directives: No Advance Directives Information Provided: No Physical Exam Vital Signs: Vital Signs: Last Vital Signs Temp 98.9 F 01/26/24 07:46 Pulse 88 01/26/24 07:46 Resp 18 01/26/24 07:46 BP 147/71 H 01/26/24 07:46 Pulse Ox 97 01/26/24 07:46 O2 Del Method Room Air 01/26/24 07:46 BMI result Body Mass Index 31.6 Appearance: Alert. Oriented X3. No acute distress. anxious intermittently Eyes: Pupils equal, round and reactive to light. ENT: Pharynx normal. Neck: Normal inspection. Neck supple. CVS: Normal heart rate and rhythm. Pulses normal. Respiratory: No respiratory distress. Breath sounds normal. Abdomen: Soft and non-tender. Bunn draining clear yellow urine bladder scan empty visualized by me Skin: Skin warm and dry. Normal skin color. Normal skin turgor. Extremities: No lower extremity edema. Neuro: Oriented X 3. No motor deficit. No sensory deficit. Medical Decision Making Medical Decision Making MDM Narrative: 78 yo female with anxiety, arthritis, urinary retention s/p bunn last night, PVC, cognitive impairment here with c/o anxiety around her bunn catheter she relates no one helps her but then when help was offered she declines it due to having a [employer] GRADER then she states she wants anxiety medications. At this time UA ordered and I am also going to place CM consult given she has called the ED several times since DC last night and returns via ED. Differential Diagnosis Differential Diagnoses: The differential diagnosis associated with the presentation includes anxiety, bunn catheter, med related retention Admission/Observation Consideration of admission/observation: Escalation of care including admission/observation considered refuses to stay she is alert and oriented I do not agree with her decision but she is not sectionable she refuses CM input or rehab Consult Healthcare Provider Management of the patient was discussed with: Marketing Mgr ([email or web address]) Lab Data [facility] Lab Attestation statement: I reviewed the patient's lab results. Labs: Lab Results 01/26/24 Range/Units 07:46 Urine Color Yellow Urine Appearance Clear Urine pH 5.5 (5.0-9.0) Ur Specific [place] 1.010 (1.005-1.025) Urine Protein Negative (Neg-Trace) mg/dL Urine Glucose (UA) Negative (Negative) mg/dL Urine Ketones Negative (Negative) mg/dL Urine Blood Large (3+) H (Negative) Urine Nitrite Negative (Negative) Ur Leukocyte Esterase Trace H (Negative) Urine RBC >20 H (0-2) /HPF Urine WBC 0-5 (0-5) /HPF Ur Squamous Epith Cells 0-2 (0-2) /HPF Urine Bacteria None Seen (None Seen) Hyaline Casts 0-2 (0-2) /LPF Independent Historian Clinical information obtained from an independent historian. History obtained from or confirmed by: EMS External Record Review External record reviewed: Inpatient record Social Determinants Patient?s care significantly limited by Social Determinants of Health including: Problems related to primary support group Discharge Plan Discharge Clinical Impression: Generalized anxiety disorder with panic attacks, Bunn catheter in place Patient Disposition: Home, Self-Care Instructions: Bunn Catheter Placement and Care (ED), Generalized Anxiety Disorder (ED) Prescriptions: No Action escitalopram oxalate 10 mg tablet 10 mg PO DAILY Qty: 30 1RF metoprolol succinate 50 mg tablet extended release 24 hr 50 mg PO DAILY Qty: 90 2RF aspirin 81 mg tablet,delayed release (DR/EC) 81 mg PO BEDTIME Qty: 90 2RF polyethylene glycol 3350 [Miralax] 17 gram/dose powder 17 g PO DAILY PRN (Reason: constipation) Qty: 238 0RF lisinopril 40 mg tablet 40 mg PO QPM Qty: 90 0RF Rx Instructions: Please call and schedule cardiology appt acetaminophen 325 mg capsule 325 mg PO QID PRN (Reason: fever or pain) Qty: 30 0RF melatonin 10 mg tablet extended release 10 mg PO .nightly Qty: 5 0RF metoprolol succinate 50 mg tablet extended release 24 hr 50 mg PO DAILY Qty: 14 0RF ciprofloxacin-dexamethasone [Ciprodex] 0.3-0.1 % drops,suspension 4 drp otic (ears) BID 7 Days 0RF alprazolam 0.5 mg Tablet 0.5 mg PO TID PRN (Reason: Anxiety) hydroxyzine HCl 50 mg Tablet 50 mg PO TID PRN (Reason: Anxiety) mirtazapine 45 mg Tablet 45 mg PO BEDTIME multivitamin Capsule 1 cap PO DAILY sertraline 50 mg Tablet 50 mg PO BEDTIME aripiprazole 2 mg Tablet 2 mg PO BEDTIME cholecalciferol (vitamin D3) 25 mcg (1,000 unit) Tablet 25 mcg PO BID omeprazole 20 mg Tablet,Delayed Release (Dr/Ec) 20 mg PO DAILY linaclotide 145 mcg Capsule 145 mcg PO DAILY diphenhydramine HCl [Benadryl] 25 mg capsule 25 mg PO BEDTIME Qty: 7 0RF cefdinir 300 mg capsule 300 mg PO BID 10 Days Qty: 20 0RF ondansetron HCl [Zofran] 4 mg tablet 4 mg PO Q8H PRN (Reason: nausea and vomiting) Qty: 14 0RF cefuroxime axetil 500 mg tablet 500 mg PO BID 7 Days Qty: 14 0RF meclizine 25 mg tablet 25 mg PO TID PRN (Reason: dizziness) Qty: 10 0RF levofloxacin 500 mg tablet 500 mg PO DAILY 7 Days Qty: 7 0RF cefuroxime axetil 500 mg tablet 500 mg PO BID 10 Days Qty: 20 0RF alprazolam 0.25 mg tablet 0.25 mg PO QID Qty: 7 0RF levofloxacin 500 mg tablet 500 mg PO DAILY Qty: 6 0RF Rx Instructions: start on 08/26 ofloxacin 0.3 % drops 10 drp otic (ears) DAILY 7 Days Qty: 5 0RF Rx Instructions: can substitute eye drops if necessary hydrocortisone 2.5 % cream with perineal applicator 1 appl NH BEDTIME PRN (Reason: hemorrhoids) Qty: 30 0RF Hemorrhoidal(PE-min oil-emma) 0.25-14-74.9 % ointment 1 appl NH BID PRN (Reason: hemorrhoids) Qty: 56 0RF polyethylene glycol 3350 [Miralax] 17 gram/dose powder 17 g PO BID Qty: 119 0RF docusate sodium [Colace] 100 mg capsule 100 mg PO BID PRN (Reason: Constipation) Qty: 14 0RF ofloxacin 0.3 % drops 5 drp otic (ear) left BID 7 Days Qty: 5 0RF alprazolam 0.25 mg tablet 0.25 mg PO TID PRN (Reason: anxiety) Qty: 7 0RF alprazolam [Xanax] 0.5 mg tablet 0.5 mg PO BEDTIME PRN (Reason: anxiety) Qty: 7 0RF metoprolol succinate 50 mg tablet extended release 24 hr 50 mg PO DAILY Qty: 7 0RF Preparation H 0.25-14-74.9 % ointment 1 appl NH BID PRN (Reason: hemorrhoids) Qty: 57 0RF polyethylene glycol 3350 [Miralax] 17 gram/dose powder 17 g PO BID Qty: 119 0RF Preparation H 0.25-14-74.9 % ointment 1 appl NH BID Qty: 28 0RF Preparation H(pe,cb) 0.25-88.44 % suppository 1 supp NH BID Qty: 24 0RF diphenhydramine HCl [Benadryl Allergy] 25 mg tablet 25 mg PO TID PRN (Reason: Pruritus) Qty: 20 0RF loratadine 10 mg tablet 10 mg PO DAILY Qty: 30 0RF fluticasone propionate [Flonase Allergy Relief] 50 mcg/actuation spray,suspension 2 spray intranasal DAILY Qty: 16 0RF Rx Instructions: administer into each nostril Debrox 6.5 % drops 5 drp otic (ear) left DAILY 4 Days Qty: 15 0RF alprazolam 0.25 mg tablet 0.25 mg PO TID PRN (Reason: anxiety) Qty: 3 0RF ondansetron 4 mg tablet,disintegrating 4 mg PO Q8H PRN (Reason: nausea and vomiting) Qty: 10 0RF hydrocortisone 1 % cream 1 appl topical BID PRN (Reason: rash) Qty: 28.4 0RF nitrofurantoin monohyd/m-cryst [Macrobid] 100 mg capsule 100 mg PO Q12H 5 Days Qty: 10 0RF Rx Instructions: must administer with a meal/food cephalexin 500 mg capsule 500 mg PO TID Qty: 15 0RF acetaminophen [Tylenol Extra Strength] 500 mg tablet 500 mg PO Q6H PRN (Reason: pain) Qty: 30 0RF Calmoseptine 0.44-20.6 % ointment 1 appl topical QID PRN (Reason: skin irritation) Qty: 113 0RF magnesium citrate Solution 150 ml PO DAILY PRN (Reason: constipation) Qty: 296 0RF Rx Instructions: take only when needed for constipation hydrocortisone acetate [Anucort-HC] 25 mg suppository 25 mg NH BID Qty: 12 3RF zolpidem [Ambien] 5 mg tablet 5 mg PO BEDTIME PRN (Reason: sleep) Qty: 2 0RF zolpidem [Ambien] 5 mg tablet 5 mg PO BEDTIME PRN (Reason: sleep) Qty: 2 0RF menthol-zinc oxide [Calmoseptine] 0.44-20.6 % ointment 1 appl topical QID PRN (Reason: skin irritation) Qty: 113 0RF Print Language: Kazakh
[2024-01-26 07:46] VITALS: BP 147/71; PULSE 88; RESP 18; TEMP 37.2; O2SAT 97
--- NOTE | 2024-01-26 07:51 | PC.NURSE ---
Pt coming from home via EMS for bladder fullness and lower ABD pain. Pt had bunn cath placed last night here at [facility] for urinary retention of 700 mL. Pt reports she does not understand the bunn or understand how it works. Pt reports she feels like it is not draining appropriately. Pt was told last night to follow-up with urology. Pt is alert and oriented, breathing even and unlabored, skin WNL. Pt speaks both Liberian and Greek, assembly member and provider at bedside. Pt reports a feeling of dull pain and fullness in her bladder. Pt bladder scanned and no urine found in the bladder. 900 mL of medium dark yellow urine, slightly cloudy emptied from bunn cath, bunn cath actively draining. Pt denies any CP or SOB, does report feeling anxious. VSS.
[2024-01-26 07:55] LABS: Appearance Urine Clear; Color Urine Yellow; Glucose Urine UA Negative (Negative); Leukocyte Esterase Urine Trace (Negative); Nitrite Urine Negative (Negative); PH 5.5 (5.0-9.0); UMIC TRIGGER UACC YES; Urine Blood Large (3+) (Negative); Urine Ketones Negative (Negative); Urine Protein Negative (Neg-Trace)
[2024-01-26 08:00] LABS: Bacteria Urine None Seen (None Seen); Hyaline Casts Urine 0-2 /LPF (0-2); RBC Urine >20 /HPF (0-2); Squamous Epithelial Cell Urine 0-2 /HPF (0-2); WBC Urine 0-5 /HPF (0-5)
--- NOTE | 2024-01-26 10:05 | MHC.CM.PN ---
Pt not admitted, she returned to ED after discharging last hs with new F/C. Pt was unsure of how to empty the bag. This CM met with pt to discuss setting up some additional services. Pt states she has a DIRECTOR OF MARKETING COMMUNICATIONS at home, unsure of how often they are there. This CM called pts daughter/HCP Jeanne to verify pts home services, per pts daughter she has DIRECTOR OF MARKETING [employer] services in the am, afternoon, and hs, but unsure of how many hours. Pts daughter states it would be good if she could have a VNA. Referral placed to [facility].
[2024-01-26 10:23] VITALS: BP 133/67; PULSE 80; RESP 20; TEMP 36.6; O2SAT 97
[2024-01-26 10:24] VITALS: BP 133/67; PULSE 80; RESP 20; TEMP 36.6; O2SAT 97
--- NOTE | 2024-01-26 10:24 | PC.NURSE ---
Shen cath continues to drain with no issues, clear yellow urine at this time. Pt denies new complaints. Pt being d/c
--- NOTE | 2024-01-26 10:25 | PC.NURSE ---
Leg bag applied and educated with medical radiation tech. Able to return demonstrate changing back to drainage bag and empty drainage systems however a lot of education and repeating necessary
== END 2024-01-26 10:28 | disposition home or self-care (01) ==
PROVIDERS: Emergency Provider Emergency Medicine
DX: F41.1 Generalized anxiety disorder (principal); F41.0 Panic disorder [episodic paroxysmal anxiety]; R33.9 Retention of urine, unspecified; I10 Essential (primary) hypertension; F03.90 Unspecified dementia, unspecified severity, without behavioral disturbance, psychotic disturbance, mood disturbance, and anxiety; Z96.0 Presence of urogenital implants
CPT/HCPCS: 51798; 81001; 99283; 99284

== ENCOUNTER 2024-01-26 21:28 | Emergency (ER) | payer OTHER, SELFPAY ==
[2024-01-26 21:40] VITALS: BP 132/70; BP 158/80; PULSE 90; PULSE 95; RESP 17; TEMP 37.1; O2SAT 99; BMI 29.8
[2024-01-26 22:39] LABS: Appearance Urine Cloudy; Color Urine Yellow; Glucose Urine UA Negative (Negative); Leukocyte Esterase Urine Trace (Negative); Nitrite Urine Negative (Negative); PH 5.5 (5.0-9.0); Specific Gravity - Urine 1.015 (1.005-1.025); UMIC TRIGGER UACC YES; Urine Blood Large (3+) (Negative); Urine Ketones Negative (Negative); Urine Protein 30 (1+) mg/dL (Neg-Trace)
[2024-01-26 22:47] LABS: Bacteria Urine None Seen (None Seen); Hyaline Casts Urine 0-2 /LPF (0-2); RBC Urine >20 /HPF (0-2); Squamous Epithelial Cell Urine 0-2 /HPF (0-2); UACC Culture Trigger YES
== END 2024-01-27 01:05 | disposition left against medical advice (07) ==
PROVIDERS: Emergency Provider Emergency Medicine; PCP Internal Medicine Geriatric Medicine
DX: R33.9 Retention of urine, unspecified (principal)
CPT/HCPCS: 81001; 87086; 99282; 99283

== ENCOUNTER 2024-01-27 09:05 | Emergency (ER) | payer OTHER, SELFPAY ==
[2024-01-27 09:20] VITALS: BP 149/76; PULSE 77; RESP 16; TEMP 37.1; O2SAT 96; BMI 26.6
[2024-01-27 09:57] LABS: MANUAL DIFF FLAG NO
[2024-01-27 09:58] LABS: Basophils Absolute Auto 0.1 X10*3/uL (0.0-0.2); Basophils Percent Auto 0.8 % (0-2); Eosinophils Absolute Auto 0.1 X10*3/uL (0.0-0.4); Eosinophils Percent Auto 0.6 % (0-4); Hemoglobin 11.5 g/dl (12.0-16.0); Imm Gran Abs Auto 0.03 X10*3/uL (0.00-0.03); Imm Gran Pct Auto 0.3 % (0.0-0.4); Lymphocytes Absolute Auto 1.9 X10*3/uL (1.2-4.9); Lymphocytes Percent Auto 21.6 % (20-40); Mean Corpuscular HGB Conc 33.8 g/dl (31.0-35.0); Mean Corpuscular Volume 82.7 fL (80.0-98.0); Mean Platelet Volume 8.4 fL (9.4-12.3); Monocytes Absolute Auto 0.7 X10*3/uL (0.1-1.2); Monocytes Percent Auto 8.4 % (2-11); Neutrophils Percent Auto 68.3 % (45-73); Platelet Count 310 X10*3/uL (160-400); Red Blood Count 4.11 X10*6/uL (4.20-5.50); Red Cell Distribution Width 13.7 % (11.0-16.0); White Blood Count 8.8 X10*3/uL (4.8-10.8)
[2024-01-27 10:05] LABS: Appearance Urine Turbid; Bacteria Urine None Seen (None Seen); Glucose Urine UA Negative (Negative); Hyaline Casts Urine 0-2 /LPF (0-2); Leukocyte Esterase Urine Small (1+) (Negative); Nitrite Urine Negative (Negative); RBC Urine >20 /HPF (0-2); Specific Gravity - Urine 1.015 (1.005-1.025); Squamous Epithelial Cell Urine 0-2 /HPF (0-2); UACC Culture Trigger YES; UMIC TRIGGER UACC YES; Urine Blood Large (3+) (Negative); Urine Ketones Negative (Negative); Urine Protein 100 (2+) mg/dL (Neg-Trace)
[2024-01-27 10:06] LABS: Color Urine Red
[2024-01-27 10:16] LABS: Alanine Aminotransferase 17 U/L (0-31); Albumin Level 4.4 g/dL (3.5-5.0); Alkaline Phosphatase 72 U/L (39-117); Anion Gap 15 (12-20); Aspartate Amino Transferase 23 U/L (5-31); Bilirubin Total 0.4 mg/dL (0.0-1.0); Blood Urea Nitrogen 19 mg/dL (9-16); Calcium 9.4 mg/dL (8.4-10.2); Carbon Dioxide 25 mmol/L (22-29); Chloride 99 mmol/L (96-108); Creatinine Clr Calc Pharmacy 50.9; Estimated Glomerular Filt Rate 59; Glucose Random 101 mg/dL (60-115); Potassium 4.5 mmol/L (3.3-5.1); Sodium 134 mmol/L (135-145); Total Protein 8.3 g/dL (6.5-8.0)
--- NOTE | 2024-01-27 13:01 | ED_ITS ---
HPI - Female Genitourinary General Chief complaint: Urogenital-Female Stated complaint: Pain Blood in Urine Time Seen by Provider: 01/27/24 13:29 Source: patient Mode of arrival: ambulatory Limitations: no limitations History of Present Illness HPI Narrative: 78-year-old female presents with complaints of anxiety, and dark urine in her Shen bag. Patient was seen here on 01/24 where she had urinary retention and subsequently a Shen was placed, she has not followed up with Urology or call them for an appointment. Patient reports that she came in because her urine looks slightly darker than usual. She has not on blood thinners. She reports since she has had the Shen catheter, she has had suprapubic abdominal pressure. Denies fevers, chills, nausea, vomiting, abdominal pain, chest pain, shortness breath, headache, vision changes, dizziness and weakness. Related Data Home Medications Medication Instructions Recorded Confirmed alprazolam 0.5 mg tablet 0.5 mg PO TID PRN Anxiety 08/09/20 01/20/24 aripiprazole 2 mg tablet 2 mg PO BEDTIME 08/09/20 01/20/24 cholecalciferol (vitamin D3) 25 25 mcg PO BID 08/09/20 01/20/24 mcg (1,000 unit) tablet hydroxyzine HCl 50 mg tablet 50 mg PO TID PRN Anxiety 08/09/20 01/20/24 linaclotide 145 mcg capsule 145 mcg PO DAILY 08/09/20 01/20/24 mirtazapine 45 mg tablet 45 mg PO BEDTIME 08/09/20 01/20/24 multivitamin 1 cap PO DAILY 08/09/20 01/20/24 omeprazole 20 mg tablet,delayed 20 mg PO DAILY 08/09/20 01/20/24 release sertraline 50 mg tablet 50 mg PO BEDTIME 08/09/20 01/20/24 Previous Rx's Medication Instructions Recorded escitalopram oxalate 10 mg tablet 10 mg PO DAILY #30 tabs 09/06/20 acetaminophen 325 mg capsule 325 mg PO QID PRN fever or pain 09/16/20 #30 caps aspirin 81 mg tablet,delayed 81 mg PO BEDTIME #90 tabs 09/28/20 release metoprolol succinate 50 mg 50 mg PO DAILY #90 tabs 09/28/20 tablet,extended release 24 hr menthol 0.44 %-zinc oxide 20.6 % 1 appl topical QID PRN skin 12/13/20 topical ointment (Calmoseptine) irritation #113 grams magnesium citrate 150 ml PO DAILY PRN constipation 12/14/20 #296 mL diphenhydramine HCl 25 mg capsule 25 mg PO BEDTIME insomnia #7 caps 12/25/20 (Benadryl) melatonin 10 mg tablet,extended 10 mg PO .nightly #5 tabs 01/07/21 release cefdinir 300 mg capsule 300 mg PO BID Otitis media 10 days 04/14/21 #20 caps ondansetron HCl 4 mg tablet 4 mg PO Q8H PRN nausea and 04/14/21 (Zofran) vomiting #14 tabs metoprolol succinate 50 mg 50 mg PO DAILY #14 tabs 05/22/21 tablet,extended release 24 hr ciprofloxacin 0.3 %-dexamethasone 4 drp otic (ears) BID 7 days 05/26/21 0.1 % ear drops,suspension (Ciprodex) polyethylene glycol 3350 17 17 g PO DAILY PRN constipation 07/31/21 gram/dose oral powder (Miralax) #238 grams hydrocortisone acetate 25 mg 25 mg NC BID #12 ea 08/01/21 rectal suppository (Anucort-HC) cefuroxime axetil 500 mg tablet 500 mg PO BID 7 days #14 tabs 09/01/21 meclizine 25 mg tablet 25 mg PO TID PRN dizziness #10 tabs 09/01/21 zolpidem 5 mg tablet (Ambien) 5 mg PO BEDTIME PRN sleep #2 tabs 10/29/21 zolpidem 5 mg tablet (Ambien) 5 mg PO BEDTIME PRN sleep #2 tabs 10/29/21 levofloxacin 500 mg tablet 500 mg PO DAILY 7 days #7 tabs 07/23/22 levofloxacin 500 mg tablet 500 mg PO DAILY #6 tabs 08/25/22 ofloxacin 0.3 % ear drops 10 drp otic (ears) DAILY 7 days #5 08/25/22 mL hydrocortisone 2.5 % topical cream 1 appl NC BEDTIME PRN hemorrhoids 09/20/22 with perineal applicator #30 grams docusate sodium 100 mg capsule 100 mg PO BID PRN Constipation #14 12/06/22 (Colace) caps phenylephrine 0.25 %-mineral oil 1 appl NC BID PRN hemorrhoids #56 12/06/22 14 %-petrolatm 74.9 % rectal grams ointment (Hemorrhoidal(phenyleph-min oil-petrolat)) polyethylene glycol 3350 17 17 g PO BID #119 grams 12/06/22 gram/dose oral powder (Miralax) cefuroxime axetil 500 mg tablet 500 mg PO BID 10 days #20 tabs 12/16/22 alprazolam 0.25 mg tablet 0.25 mg PO QID #7 tabs 01/04/23 ofloxacin 0.3 % ear drops 5 drp otic (ear) left BID 7 days 01/06/23 #5 mL alprazolam 0.25 mg tablet 0.25 mg PO TID PRN anxiety #7 tabs 01/11/23 alprazolam 0.25 mg tablet 0.25 mg PO TID PRN anxiety #3 tabs 02/02/23 alprazolam 0.5 mg tablet (Xanax) 0.5 mg PO BEDTIME PRN anxiety #7 04/20/23 tabs metoprolol succinate 50 mg 50 mg PO DAILY #7 tabs 05/18/23 tablet,extended release 24 hr lisinopril 40 mg tablet 40 mg PO QPM #90 tabs 05/22/23 ondansetron 4 mg disintegrating 4 mg PO Q8H PRN nausea and 07/06/23 tablet vomiting #10 tabs hydrocortisone 1 % topical cream 1 appl topical BID PRN rash #28.4 08/03/23 grams phenylephrine 0.25 %-mineral oil 1 appl NC BID PRN hemorrhoids #57 08/17/23 14 %-petrolatm 74.9 % rectal grams ointment (Preparation H) polyethylene glycol 3350 17 17 g PO BID #119 grams 08/17/23 gram/dose oral powder (Miralax) diphenhydramine HCl 25 mg tablet 25 mg PO TID PRN Pruritus #20 tabs 08/25/23 (Benadryl Allergy) phenylephrine 0.25 %-cocoa butter 1 supp NC BID #24 ea 08/25/23 88.44 % rectal suppository (Preparation H(phenyleph,cocoa buttr)) phenylephrine 0.25 %-mineral oil 1 appl NC BID #28 grams 08/25/23 14 %-petrolatm 74.9 % rectal ointment (Preparation H) fluticasone propionate 50 2 spray intranasal DAILY #16 grams 09/16/23 mcg/actuation nasal spray,suspension (Flonase Allergy Relief) loratadine 10 mg tablet 10 mg PO DAILY #30 tabs 09/16/23 menthol 0.44 %-zinc oxide 20.6 % 1 appl topical QID PRN skin 09/22/23 topical ointment (Calmoseptine) irritation #113 grams cephalexin 500 mg capsule 500 mg PO TID #15 caps 10/20/23 nitrofurantoin 100 mg PO Q12H 5 days #10 caps 10/20/23 monohydrate/macrocrystals 100 mg capsule (Macrobid) acetaminophen 500 mg tablet 500 mg PO Q6H PRN pain #30 tabs 12/02/23 (Tylenol Extra Strength) carbamide peroxide 6.5 % ear drops 5 drp otic (ear) left DAILY 4 days 12/04/23 (Debrox) #15 mL Allergies Allergy/AdvReac Type Severity Reaction Status Date / Time penicillin G [Penicillin G] Allergy Severe ITCHY/RASH Verified 01/27/24 09:24 Sulfa (Sulfonamide Allergy Severe ITCHY,RASH, Verified 01/27/24 09:24 Antibiotics) rash [Sulfa (Sulfonamides)] trimethoprim [From Bactrim] Allergy Severe HIVES Verified 01/27/24 09:24 Review of Systems 2 Review of Systems: Yes all other systems are reviewed and are negative PMFSH Past Medical History Attestation statement: The following information was validated with the patient. Source: old records reviewed and nursing notes reviewed Medical History Bleeding hemorrhoids Essential hypertension PVC (premature ventricular contraction) PAC (premature atrial contraction) SVT (supraventricular tachycardia) Chronic constipation High blood pressure Vertigo Dementia Arthritis Anxiety Surgical History No pertinent past surgical history Social History Social History Alcohol intake: never Patient Tobacco Use Status: Never used Tobacco Advance Directives: No Advance Directives Information Provided: Yes Physical Exam 2 Vital Signs: Vital Signs: Last Vital Signs Temp 98.8 F 01/27/24 09:20 Pulse 80 01/27/24 13:02 Resp 18 01/27/24 13:02 BP 140/65 H 01/27/24 13:02 Pulse Ox 96 01/27/24 13:02 O2 Del Method Room Air 01/27/24 13:02 BMI result Body Mass Index 26.6 vss Appearance: Alert.? Oriented X3.? No acute distress.? Head: Normocephalic, atraumatic, no step-offs or deformities Eyes: Pupils equal, round and reactive to light.? ENT: Pharynx normal.? Neck: Normal inspection.? Neck supple.? CVS: Normal heart rate and rhythm.? Pulses normal.? Respiratory: No respiratory distress.? Breath sounds normal.? Abdomen: Soft and nontender.?No suprapubic abdominal discomfort. Skin: Skin warm and dry.? Normal skin color.? Normal skin turgor.? Extremities: No lower extremity edema.? No calf ttp. 5/5 strength to bilateral upper and lower extremities Shen cath: tea colored urine, dark urine. No clots Neuro: Oriented X 3.? No motor deficit.? No sensory deficit. CN 2-12 intact Course Course Course Narrative: This is an RME: Additional HPI, ROS, PE not included below will be deferred to primary provider. This is a 78-year-old [place]-speaking female presenting to the emergency room with complaints of concerns for dark urine. It appears that she had a Shen catheter placed due to urinary retention. Plan: Labs, UA Reevaluation(s) Reevaluation #1: CBC with a normocytic anemia, patient with history of this. Chemistry unremarkable. No acute findings requiring intervention. Coags normal. UA with blood and leukocyte esterases. No bacteria. Leukocyte esterases likely secondary to acute blood in urine unlikely from infection. No fevers, flank pain, hypotension or tachycardia. I do not suspect sepsis. No signs of acute abdomen. No indication for imaging at this time. Patient should follow-up with urology. It verbalizes understanding of this. Educated patient on diagnosis and treatment plan, answered all question, patient verbalizes understanding. At this time patient will be discharged home, advised to return with new or worsening symptoms. Educated on worrisome signs and symptoms and when to return. At this time I feel comfortable discharge home. Time: 13:56 Medical Decision Making Medical Decision Making MDM Narrative: 78-year-old female presents with suprapubic abdominal discomfort, hematuria, anxiety. Physical exam benign. She is noted to have tea-colored urine in her urinary bag. No clots. No abdominal distention. Normoactive bowel sounds. History and physical exam concerning for hematuria. Unlikely acute blood loss anemia. Will rule out UTI versus cystitis. No signs of hypovolemic shock. Anxiety chronic. No need for acute treatment at this time. Not suicidal or homicidal. I do not suspect acute abdomen, obstructing uropathy, obstructing clot. Plan at this time labs, urine. Ultimately patient has to follow up with Urology which she has not yet done. Differential Diagnosis Differential Diagnoses: The differential diagnosis associated with the presentation includes History and physical exam concerning for hematuria. Unlikely acute blood loss anemia. Will rule out UTI versus cystitis. No signs of hypovolemic shock. Anxiety chronic. No need for acute treatment at this time. Not suicidal or homicidal. I do not suspect acute abdomen, obstructing uropathy, obstructing clot. Admission/Observation Consideration of admission/observation: Escalation of care including admission/observation considered No indication Lab Data MDM Lab Attestation statement: I reviewed the patient's lab results. 01/27/24 09:46 01/27/24 09:46 Labs: Lab Results 01/27/24 01/27/24 01/27/24 Range/Units 09:46 09:46 09:46 WBC 8.8 (4.8-10.8) X10*3/uL RBC 4.11 L (4.20-5.50) X10*6/uL Hgb 11.5 L (12.0-16.0) g/dl Hct 34.0 L (37.0-47.0) % MCV 82.7 (80.0-98.0) fL MCH 28.0 (27.0-33.0) pg MCHC 33.8 (31.0-35.0) g/dl RDW 13.7 (11.0-16.0) % Plt Count 310 (160-400) X10*3/uL MPV 8.4 L (9.4-12.3) fL Immature Gran % (Auto) 0.3 (0.0-0.4) % Neut % (Auto) 68.3 (45-73) % Lymph % (Auto) 21.6 (20-40) % [place] % (Auto) 8.4 (2-11) % Eos % (Auto) 0.6 (0-4) % Baso % (Auto) 0.8 (0-2) % Lymph # (Auto) 1.9 (1.2-4.9) X10*3/uL [place] # (Auto) 0.7 (0.1-1.2) X10*3/uL Eos # (Auto) 0.1 (0.0-0.4) X10*3/uL Baso # (Auto) 0.1 (0.0-0.2) X10*3/uL Abs Immat Gran (auto) 0.03 (0.00-0.03) X10*3/uL Absolute Neuts (auto) 6.0 (2.0-8.3) x10*3/uL Absolute Nucleated RBC 0.000 (0.0-0.012) X10*3/uL Nucleated RBC % (auto) 0.0 (0.0-0.2) /100WBC PT 12.0 (11.1-13.3) SEC INR 1.0 (0.9-1.1) Sodium 134 L (135-145) mmol/L Potassium 4.5 (3.3-5.1) mmol/L Chloride 99 (96-108) mmol/L Carbon Dioxide 25 (22-29) mmol/L Anion Gap 15 (12-20) BUN 19 H (9-16) mg/dL Creatinine 0.91 (0.5-1.4) mg/dL Estim Creat Clear Calc 50.9 Estimated GFR 59 Random Glucose 101 (60-115) mg/dL Calcium 9.4 (8.4-10.2) mg/dL Total Bilirubin 0.4 (0.0-1.0) mg/dL AST 23 (5-31) U/L ALT 17 (0-31) U/L Alkaline Phosphatase 72 (39-117) U/L Total Protein 8.3 H (6.5-8.0) g/dL Albumin 4.4 (3.5-5.0) g/dL Urine Color Red A Cancelled Urine Appearance Turbid Cancelled Urine pH 5.0 (5.0-9.0) Ur Specific [place] (1.005-1.025) Urine Protein (Neg-Trace) mg/dL Urine Glucose (UA) (Negative) mg/dL Urine Ketones (Negative) mg/dL Urine Blood (Negative) Urine Nitrite (Negative) Ur Leukocyte Esterase (Negative) Urine RBC (0-2) /HPF Urine WBC (0-5) /HPF Urine WBC Clumps Ur Squamous Epith Cells (0-2) /HPF Ur Transition Epith Cell Ur Renal Epithelial Cell Calcium Oxalate Crystal Leucine Crystals Cystine Crystals Tyrosine Crystals Other Crystals Urine Bacteria (None Seen) Urine Parasites Bilirubin Casts Epithelial Casts Fatty Casts Hyaline Casts (0-2) /LPF Granular Casts Waxy Casts Broad Casts RBC Casts WBC Casts Other Casts Urine Trichomonas Urine Yeast 01/27/24 01/27/24 01/27/24 Range/Units 09:46 09:46 09:46 WBC (4.8-10.8) X10*3/uL RBC (4.20-5.50) X10*6/uL Hgb (12.0-16.0) g/dl Hct (37.0-47.0) % MCV (80.0-98.0) fL MCH (27.0-33.0) pg MCHC (31.0-35.0) g/dl RDW (11.0-16.0) % Plt Count (160-400) X10*3/uL MPV (9.4-12.3) fL Immature Gran % (Auto) (0.0-0.4) % Neut % (Auto) (45-73) % Lymph % (Auto) (20-40) % [place] % (Auto) (2-11) % Eos % (Auto) (0-4) % Baso % (Auto) (0-2) % Lymph # (Auto) (1.2-4.9) X10*3/uL [place] # (Auto) (0.1-1.2) X10*3/uL Eos # (Auto) (0.0-0.4) X10*3/uL Baso # (Auto) (0.0-0.2) X10*3/uL Abs Immat Gran (auto) (0.00-0.03) X10*3/uL Absolute Neuts (auto) (2.0-8.3) x10*3/uL Absolute Nucleated RBC (0.0-0.012) X10*3/uL Nucleated RBC % (auto) (0.0-0.2) /100WBC PT (11.1-13.3) SEC INR (0.9-1.1) Sodium (135-145) mmol/L Potassium (3.3-5.1) mmol/L Chloride (96-108) mmol/L Carbon Dioxide (22-29) mmol/L Anion Gap (12-20) BUN (9-16) mg/dL Creatinine (0.5-1.4) mg/dL Estim Creat Clear Calc Estimated GFR Random Glucose (60-115) mg/dL Calcium (8.4-10.2) mg/dL Total Bilirubin (0.0-1.0) mg/dL AST (5-31) U/L ALT (0-31) U/L Alkaline Phosphatase (39-117) U/L Total Protein (6.5-8.0) g/dL Albumin (3.5-5.0) g/dL Urine Color Urine Appearance Urine pH Cancelled (5.0-9.0) Ur Specific [place] 1.015 Cancelled (1.005-1.025) Urine Protein 100 (2+) H Cancelled (Neg-Trace) mg/dL Urine Glucose (UA) Negative (Negative) mg/dL Urine Ketones (Negative) mg/dL Urine Blood (Negative) Urine Nitrite (Negative) Ur Leukocyte Esterase (Negative) Urine RBC (0-2) /HPF Urine WBC (0-5) /HPF Urine WBC Clumps Ur Squamous Epith Cells (0-2) /HPF Ur Transition Epith Cell Ur Renal Epithelial Cell Calcium Oxalate Crystal Leucine Crystals Cystine Crystals Tyrosine Crystals Other Crystals Urine Bacteria (None Seen) Urine Parasites Bilirubin Casts Epithelial Casts Fatty Casts Hyaline Casts (0-2) /LPF Granular Casts Waxy Casts Broad Casts RBC Casts WBC Casts Other Casts Urine Trichomonas Urine Yeast 01/27/24 01/27/24 01/27/24 Range/Units 09:46 09:46 09:46 WBC (4.8-10.8) X10*3/uL RBC (4.20-5.50) X10*6/uL Hgb (12.0-16.0) g/dl Hct (37.0-47.0) % MCV (80.0-98.0) fL MCH (27.0-33.0) pg MCHC (31.0-35.0) g/dl RDW (11.0-16.0) % Plt Count (160-400) X10*3/uL MPV (9.4-12.3) fL Immature Gran % (Auto) (0.0-0.4) % Neut % (Auto) (45-73) % Lymph % (Auto) (20-40) % [place] % (Auto) (2-11) % Eos % (Auto) (0-4) % Baso % (Auto) (0-2) % Lymph # (Auto) (1.2-4.9) X10*3/uL [place] # (Auto) (0.1-1.2) X10*3/uL Eos # (Auto) (0.0-0.4) X10*3/uL Baso # (Auto) (0.0-0.2) X10*3/uL Abs Immat Gran (auto) (0.00-0.03) X10*3/uL Absolute Neuts (auto) (2.0-8.3) x10*3/uL Absolute Nucleated RBC (0.0-0.012) X10*3/uL Nucleated RBC % (auto) (0.0-0.2) /100WBC PT (11.1-13.3) SEC INR (0.9-1.1) Sodium (135-145) mmol/L Potassium (3.3-5.1) mmol/L Chloride (96-108) mmol/L Carbon Dioxide (22-29) mmol/L Anion Gap (12-20) BUN (9-16) mg/dL Creatinine (0.5-1.4) mg/dL Estim Creat Clear Calc Estimated GFR Random Glucose (60-115) mg/dL Calcium (8.4-10.2) mg/dL Total Bilirubin (0.0-1.0) mg/dL AST (5-31) U/L ALT (0-31) U/L Alkaline Phosphatase (39-117) U/L Total Protein (6.5-8.0) g/dL Albumin (3.5-5.0) g/dL Urine Color Urine Appearance Urine pH (5.0-9.0) Ur Specific [place] (1.005-1.025) Urine Protein (Neg-Trace) mg/dL Urine Glucose (UA) Cancelled (Negative) mg/dL Urine Ketones Negative Cancelled (Negative) mg/dL Urine Blood Large (3+) H Cancelled (Negative) Urine Nitrite Negative (Negative) Ur Leukocyte Esterase (Negative) Urine RBC (0-2) /HPF Urine WBC (0-5) /HPF Urine WBC Clumps Ur Squamous Epith Cells (0-2) /HPF Ur Transition Epith Cell Ur Renal Epithelial Cell Calcium Oxalate Crystal Leucine Crystals Cystine Crystals Tyrosine Crystals Other Crystals Urine Bacteria (None Seen) Urine Parasites Bilirubin Casts Epithelial Casts Fatty Casts Hyaline Casts (0-2) /LPF Granular Casts Waxy Casts Broad Casts RBC Casts WBC Casts Other Casts Urine Trichomonas Urine Yeast 01/27/24 01/27/24 01/27/24 Range/Units 09:46 09:46 09:46 WBC (4.8-10.8) X10*3/uL RBC (4.20-5.50) X10*6/uL Hgb (12.0-16.0) g/dl Hct (37.0-47.0) % MCV (80.0-98.0) fL MCH (27.0-33.0) pg MCHC (31.0-35.0) g/dl RDW (11.0-16.0) % Plt Count (160-400) X10*3/uL MPV (9.4-12.3) fL Immature Gran % (Auto) (0.0-0.4) % Neut % (Auto) (45-73) % Lymph % (Auto) (20-40) % [place] % (Auto) (2-11) % Eos % (Auto) (0-4) % Baso % (Auto) (0-2) % Lymph # (Auto) (1.2-4.9) X10*3/uL [place] # (Auto) (0.1-1.2) X10*3/uL Eos # (Auto) (0.0-0.4) X10*3/uL Baso # (Auto) (0.0-0.2) X10*3/uL Abs Immat Gran (auto) (0.00-0.03) X10*3/uL Absolute Neuts (auto) (2.0-8.3) x10*3/uL Absolute Nucleated RBC (0.0-0.012) X10*3/uL Nucleated RBC % (auto) (0.0-0.2) /100WBC PT (11.1-13.3) SEC INR (0.9-1.1) Sodium (135-145) mmol/L Potassium (3.3-5.1) mmol/L Chloride (96-108) mmol/L Carbon Dioxide (22-29) mmol/L Anion Gap (12-20) BUN (9-16) mg/dL Creatinine (0.5-1.4) mg/dL Estim Creat Clear Calc Estimated GFR Random Glucose (60-115) mg/dL Calcium (8.4-10.2) mg/dL Total Bilirubin (0.0-1.0) mg/dL AST (5-31) U/L ALT (0-31) U/L Alkaline Phosphatase (39-117) U/L Total Protein (6.5-8.0) g/dL Albumin (3.5-5.0) g/dL Urine Color Urine Appearance Urine pH (5.0-9.0) Ur Specific [place] (1.005-1.025) Urine Protein (Neg-Trace) mg/dL Urine Glucose (UA) (Negative) mg/dL Urine Ketones (Negative) mg/dL Urine Blood (Negative) Urine Nitrite Cancelled (Negative) Ur Leukocyte Esterase Small (1+) H Cancelled (Negative) Urine RBC >20 H Cancelled (0-2) /HPF Urine WBC 6-10 H (0-5) /HPF Urine WBC Clumps Ur Squamous Epith Cells (0-2) /HPF Ur Transition Epith Cell Ur Renal Epithelial Cell Calcium Oxalate Crystal Leucine Crystals Cystine Crystals Tyrosine Crystals Other Crystals Urine Bacteria (None Seen) Urine Parasites Bilirubin Casts Epithelial Casts Fatty Casts Hyaline Casts (0-2) /LPF Granular Casts Waxy Casts Broad Casts RBC Casts WBC Casts Other Casts Urine Trichomonas Urine Yeast 01/27/24 01/27/24 01/27/24 Range/Units 09:46 09:46 09:46 WBC (4.8-10.8) X10*3/uL RBC (4.20-5.50) X10*6/uL Hgb (12.0-16.0) g/dl Hct (37.0-47.0) % MCV (80.0-98.0) fL MCH (27.0-33.0) pg MCHC (31.0-35.0) g/dl RDW (11.0-16.0) % Plt Count (160-400) X10*3/uL MPV (9.4-12.3) fL Immature Gran % (Auto) (0.0-0.4) % Neut % (Auto) (45-73) % Lymph % (Auto) (20-40) % [place] % (Auto) (2-11) % Eos % (Auto) (0-4) % Baso % (Auto) (0-2) % Lymph # (Auto) (1.2-4.9) X10*3/uL [place] # (Auto) (0.1-1.2) X10*3/uL Eos # (Auto) (0.0-0.4) X10*3/uL Baso # (Auto) (0.0-0.2) X10*3/uL Abs Immat Gran (auto) (0.00-0.03) X10*3/uL Absolute Neuts (auto) (2.0-8.3) x10*3/uL Absolute Nucleated RBC (0.0-0.012) X10*3/uL Nucleated RBC % (auto) (0.0-0.2) /100WBC PT (11.1-13.3) SEC INR (0.9-1.1) Sodium (135-145) mmol/L Potassium (3.3-5.1) mmol/L Chloride (96-108) mmol/L Carbon Dioxide (22-29) mmol/L Anion Gap (12-20) BUN (9-16) mg/dL Creatinine (0.5-1.4) mg/dL Estim Creat Clear Calc Estimated GFR Random Glucose (60-115) mg/dL Calcium (8.4-10.2) mg/dL Total Bilirubin (0.0-1.0) mg/dL AST (5-31) U/L ALT (0-31) U/L Alkaline Phosphatase (39-117) U/L Total Protein (6.5-8.0) g/dL Albumin (3.5-5.0) g/dL Urine Color Urine Appearance Urine pH (5.0-9.0) Ur Specific [place] (1.005-1.025) Urine Protein (Neg-Trace) mg/dL Urine Glucose (UA) (Negative) mg/dL Urine Ketones (Negative) mg/dL Urine Blood (Negative) Urine Nitrite (Negative) Ur Leukocyte Esterase (Negative) Urine RBC (0-2) /HPF Urine WBC Cancelled (0-5) /HPF Urine WBC Clumps Cancelled Ur Squamous Epith Cells 0-2 Cancelled (0-2) /HPF Ur Transition Epith Cell Cancelled Ur Renal Epithelial Cell Cancelled Calcium Oxalate Crystal Cancelled Leucine Crystals Cancelled Cystine Crystals Cancelled Tyrosine Crystals Cancelled Other Crystals Cancelled Urine Bacteria None Seen Cancelled (None Seen) Urine Parasites Cancelled Bilirubin Casts Cancelled Epithelial Casts Cancelled Fatty Casts Cancelled Hyaline Casts 0-2 (0-2) /LPF Granular Casts Waxy Casts Broad Casts RBC Casts WBC Casts Other Casts Urine Trichomonas Urine Yeast 01/27/24 Range/Units 09:46 WBC (4.8-10.8) X10*3/uL RBC (4.20-5.50) X10*6/uL Hgb (12.0-16.0) g/dl Hct (37.0-47.0) % MCV (80.0-98.0) fL MCH (27.0-33.0) pg MCHC (31.0-35.0) g/dl RDW (11.0-16.0) % Plt Count (160-400) X10*3/uL MPV (9.4-12.3) fL Immature Gran % (Auto) (0.0-0.4) % Neut % (Auto) (45-73) % Lymph % (Auto) (20-40) % [place] % (Auto) (2-11) % Eos % (Auto) (0-4) % Baso % (Auto) (0-2) % Lymph # (Auto) (1.2-4.9) X10*3/uL [place] # (Auto) (0.1-1.2) X10*3/uL Eos # (Auto) (0.0-0.4) X10*3/uL Baso # (Auto) (0.0-0.2) X10*3/uL Abs Immat Gran (auto) (0.00-0.03) X10*3/uL Absolute Neuts (auto) (2.0-8.3) x10*3/uL Absolute Nucleated RBC (0.0-0.012) X10*3/uL Nucleated RBC % (auto) (0.0-0.2) /100WBC PT (11.1-13.3) SEC INR (0.9-1.1) Sodium (135-145) mmol/L Potassium (3.3-5.1) mmol/L Chloride (96-108) mmol/L Carbon Dioxide (22-29) mmol/L Anion Gap (12-20) BUN (9-16) mg/dL Creatinine (0.5-1.4) mg/dL Estim Creat Clear Calc Estimated GFR Random Glucose (60-115) mg/dL Calcium (8.4-10.2) mg/dL Total Bilirubin (0.0-1.0) mg/dL AST (5-31) U/L ALT (0-31) U/L Alkaline Phosphatase (39-117) U/L Total Protein (6.5-8.0) g/dL Albumin (3.5-5.0) g/dL Urine Color Urine Appearance Urine pH (5.0-9.0) Ur Specific [place] (1.005-1.025) Urine Protein (Neg-Trace) mg/dL Urine Glucose (UA) (Negative) mg/dL Urine Ketones (Negative) mg/dL Urine Blood (Negative) Urine Nitrite (Negative) Ur Leukocyte Esterase (Negative) Urine RBC (0-2) /HPF Urine WBC (0-5) /HPF Urine WBC Clumps Ur Squamous Epith Cells (0-2) /HPF Ur Transition Epith Cell Ur Renal Epithelial Cell Calcium Oxalate Crystal Leucine Crystals Cystine Crystals Tyrosine Crystals Other Crystals Urine Bacteria (None Seen) Urine Parasites Bilirubin Casts Epithelial Casts Fatty Casts Hyaline Casts Cancelled (0-2) /LPF Granular Casts Cancelled Waxy Casts Cancelled Broad Casts Cancelled RBC Casts Cancelled WBC Casts Cancelled Other Casts Cancelled Urine Trichomonas Cancelled Urine Yeast Cancelled External Record Review External record reviewed: Inpatient record, Office record, Outpatient record, Prior outpatient labs, Prior outpatient radiology, Primary care record and Outside ED record Chronic Conditions Patient?s care impacted by: Other (pac, pvc, svt, urinary retention, axiety, ) Social Determinants Patient?s care significantly limited by Social Determinants of Health including: Inadequate housing, Low income, Problems related to primary support group, Unemployment, Problems related to employment and Other Social Determinant of Health Discharge Plan Discharge Clinical Impression: Hematuria, Anxiety, Suprapubic discomfort Patient Disposition: Home, Self-Care Instructions: Hematuria (ED), Anxiety (ED) Additional Instructions: Take your medications as prescribed. If you were prescribed antibiotics today, it is important that you take your medication to their entirety, do not skip any doses, do not finish them early. Follow-up with your primary care provider this week. Return to the emergency department with new or worsening symptoms. Such as fevers, chills, chest pain, shortness of breath, nausea, vomiting, dizziness, headache, vision changes, lethargy In case of emergency call 911 Prescriptions: No Action escitalopram oxalate 10 mg tablet 10 mg PO DAILY Qty: 30 1RF metoprolol succinate 50 mg tablet extended release 24 hr 50 mg PO DAILY Qty: 90 2RF aspirin 81 mg tablet,delayed release (DR/EC) 81 mg PO BEDTIME Qty: 90 2RF polyethylene glycol 3350 [Miralax] 17 gram/dose powder 17 g PO DAILY PRN (Reason: constipation) Qty: 238 0RF lisinopril 40 mg tablet 40 mg PO QPM Qty: 90 0RF Rx Instructions: Please call and schedule cardiology appt acetaminophen 325 mg capsule 325 mg PO QID PRN (Reason: fever or pain) Qty: 30 0RF melatonin 10 mg tablet extended release 10 mg PO .nightly Qty: 5 0RF metoprolol succinate 50 mg tablet extended release 24 hr 50 mg PO DAILY Qty: 14 0RF ciprofloxacin-dexamethasone [Ciprodex] 0.3-0.1 % drops,suspension 4 drp otic (ears) BID 7 Days 0RF alprazolam 0.5 mg Tablet 0.5 mg PO TID PRN (Reason: Anxiety) hydroxyzine HCl 50 mg Tablet 50 mg PO TID PRN (Reason: Anxiety) mirtazapine 45 mg Tablet 45 mg PO BEDTIME multivitamin Capsule 1 cap PO DAILY sertraline 50 mg Tablet 50 mg PO BEDTIME aripiprazole 2 mg Tablet 2 mg PO BEDTIME cholecalciferol (vitamin D3) 25 mcg (1,000 unit) Tablet 25 mcg PO BID omeprazole 20 mg Tablet,Delayed Release (Dr/Ec) 20 mg PO DAILY linaclotide 145 mcg Capsule 145 mcg PO DAILY diphenhydramine HCl [Benadryl] 25 mg capsule 25 mg PO BEDTIME Qty: 7 0RF cefdinir 300 mg capsule 300 mg PO BID 10 Days Qty: 20 0RF ondansetron HCl [Zofran] 4 mg tablet 4 mg PO Q8H PRN (Reason: nausea and vomiting) Qty: 14 0RF cefuroxime axetil 500 mg tablet 500 mg PO BID 7 Days Qty: 14 0RF meclizine 25 mg tablet 25 mg PO TID PRN (Reason: dizziness) Qty: 10 0RF levofloxacin 500 mg tablet 500 mg PO DAILY 7 Days Qty: 7 0RF cefuroxime axetil 500 mg tablet 500 mg PO BID 10 Days Qty: 20 0RF alprazolam 0.25 mg tablet 0.25 mg PO QID Qty: 7 0RF levofloxacin 500 mg tablet 500 mg PO DAILY Qty: 6 0RF Rx Instructions: start on 08/26 ofloxacin 0.3 % drops 10 drp otic (ears) DAILY 7 Days Qty: 5 0RF Rx Instructions: can substitute eye drops if necessary hydrocortisone 2.5 % cream with perineal applicator 1 appl NC BEDTIME PRN (Reason: hemorrhoids) Qty: 30 0RF Hemorrhoidal(PE-min oil-emma) 0.25-14-74.9 % ointment 1 appl NC BID PRN (Reason: hemorrhoids) Qty: 56 0RF polyethylene glycol 3350 [Miralax] 17 gram/dose powder 17 g PO BID Qty: 119 0RF docusate sodium [Colace] 100 mg capsule 100 mg PO BID PRN (Reason: Constipation) Qty: 14 0RF ofloxacin 0.3 % drops 5 drp otic (ear) left BID 7 Days Qty: 5 0RF alprazolam 0.25 mg tablet 0.25 mg PO TID PRN (Reason: anxiety) Qty: 7 0RF alprazolam [Xanax] 0.5 mg tablet 0.5 mg PO BEDTIME PRN (Reason: anxiety) Qty: 7 0RF metoprolol succinate 50 mg tablet extended release 24 hr 50 mg PO DAILY Qty: 7 0RF Preparation H 0.25-14-74.9 % ointment 1 appl NC BID PRN (Reason: hemorrhoids) Qty: 57 0RF polyethylene glycol 3350 [Miralax] 17 gram/dose powder 17 g PO BID Qty: 119 0RF Preparation H 0.25-14-74.9 % ointment 1 appl NC BID Qty: 28 0RF Preparation H(pe,cb) 0.25-88.44 % suppository 1 supp NC BID Qty: 24 0RF diphenhydramine HCl [Benadryl Allergy] 25 mg tablet 25 mg PO TID PRN (Reason: Pruritus) Qty: 20 0RF loratadine 10 mg tablet 10 mg PO DAILY Qty: 30 0RF fluticasone propionate [Flonase Allergy Relief] 50 mcg/actuation spray,suspension 2 spray intranasal DAILY Qty: 16 0RF Rx Instructions: administer into each nostril Debrox 6.5 % drops 5 drp otic (ear) left DAILY 4 Days Qty: 15 0RF alprazolam 0.25 mg tablet 0.25 mg PO TID PRN (Reason: anxiety) Qty: 3 0RF ondansetron 4 mg tablet,disintegrating 4 mg PO Q8H PRN (Reason: nausea and vomiting) Qty: 10 0RF hydrocortisone 1 % cream 1 appl topical BID PRN (Reason: rash) Qty: 28.4 0RF nitrofurantoin monohyd/m-cryst [Macrobid] 100 mg capsule 100 mg PO Q12H 5 Days Qty: 10 0RF Rx Instructions: must administer with a meal/food cephalexin 500 mg capsule 500 mg PO TID Qty: 15 0RF acetaminophen [Tylenol Extra Strength] 500 mg tablet 500 mg PO Q6H PRN (Reason: pain) Qty: 30 0RF Calmoseptine 0.44-20.6 % ointment 1 appl topical QID PRN (Reason: skin irritation) Qty: 113 0RF magnesium citrate Solution 150 ml PO DAILY PRN (Reason: constipation) Qty: 296 0RF Rx Instructions: take only when needed for constipation hydrocortisone acetate [Anucort-HC] 25 mg suppository 25 mg NC BID Qty: 12 3RF zolpidem [Ambien] 5 mg tablet 5 mg PO BEDTIME PRN (Reason: sleep) Qty: 2 0RF zolpidem [Ambien] 5 mg tablet 5 mg PO BEDTIME PRN (Reason: sleep) Qty: 2 0RF menthol-zinc oxide [Calmoseptine] 0.44-20.6 % ointment 1 appl topical QID PRN (Reason: skin irritation) Qty: 113 0RF Referrals: [facility] [Provider Group] - 1 day Nitin Echevarria MD [Primary Care Provider] - 2 days
[2024-01-27 13:02] VITALS: BP 140/65; PULSE 80; RESP 18; O2SAT 96
[2024-01-27 13:59] VITALS: BP 130/65; PULSE 82; RESP 20; TEMP 37; O2SAT 98
== END 2024-01-27 14:01 | disposition home or self-care (01) ==
PROVIDERS: Emergency Provider Emergency Medicine; PCP Internal Medicine Geriatric Medicine
DX: R31.9 Hematuria, unspecified (principal); R30.0 Dysuria; F41.1 Generalized anxiety disorder; R10.2 Pelvic and perineal pain; Z79.899 Other long term (current) drug therapy
CPT/HCPCS: 36415; 80053; 81001; 85025; 85610; 99282; 99283

== ENCOUNTER 2024-01-27 21:23 | Emergency (ER) | payer OTHER, SELFPAY ==
[2024-01-27 21:31] VITALS: BP 152/74; PULSE 84; O2SAT 98
== END 2024-01-27 22:04 | disposition left against medical advice (07) ==
LOC: HO.ED 21:54
PROVIDERS: Emergency Provider Emergency Medicine
DX: Z53.21 Procedure and treatment not carried out due to patient leaving prior to being seen by health care provider (principal); R33.9 Retention of urine, unspecified

== ENCOUNTER 2024-01-28 06:24 | Emergency (ER) | payer OTHER, SELFPAY ==
[2024-01-28] VITALS (7 sets, daily range): BP systolic 116–153; BP diastolic 58–90; PULSE 73–84; RESP 14–18; TEMP 36.2–36.8; O2SAT 96–98; BMI 28.0
--- NOTE | 2024-01-28 07:08 | ED.FEMALEGU ---
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 Since placing it over the weekend she has called the ED several times, has had visits to the ED and refused rehab CM services. She lacks understanding at this time. 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 which contradicts her statements on the last visit MD elicited complaint: other (bunn catheter problems) Pertinent past history: other (recent bunn) Onset (ago): day(s) (since the weekend) Location of symptoms: suprapubic Severity: mild Quality of pain: dull Consistency: intermittent Exacerbating factors: other (bunn catheter) Relieving factors: none Associated symptoms: denies other symptoms Treatment prior to arrival: none Related Data Home Medications Medication Instructions Recorded Confirmed mirtazapine 45 mg tablet 45 mg PO BEDTIME 08/09/20 01/28/24 omeprazole 20 mg tablet,delayed 20 mg PO DAILY 08/09/20 01/28/24 release alprazolam 0.5 mg tablet 0.5 mg PO QID PRN Anxiety 01/28/24 01/28/24 aspirin 81 mg tablet,delayed 81 mg PO QAM 01/28/24 01/28/24 release bisacodyl 5 mg tablet,delayed 5 mg PO DAILY PRN constipation 01/28/24 01/28/24 release cholecalciferol (vitamin D3) 25 25 mcg PO BID 01/28/24 01/28/24 mcg (1,000 unit) tablet diphenhydramine HCl 25 mg tablet 25 mg PO BEDTIME PRN itch 01/28/24 01/28/24 (Lou-Dryl) ferrous sulfate 325 mg (65 mg 325 mg PO DAILY 01/28/24 01/28/24 iron) tablet (FeroSul) multivitamin 1 tab PO QAM 01/28/24 01/28/24 rosuvastatin 20 mg tablet 20 mg PO QPM 01/28/24 01/28/24 sertraline 100 mg tablet 100 mg PO DAILY 01/28/24 01/28/24 trazodone 50 mg tablet 50 mg PO BEDTIME 01/28/24 01/28/24 Previous Rx's Medication Instructions Recorded metoprolol succinate 50 mg 50 mg PO DAILY #90 tabs 09/28/20 tablet,extended release 24 hr melatonin 10 mg tablet,extended 10 mg PO .nightly #5 tabs 01/07/21 release lisinopril 40 mg tablet 40 mg PO QPM #90 tabs 05/22/23 fluticasone propionate 50 2 spray intranasal DAILY #16 grams 09/16/23 mcg/actuation nasal spray,suspension (Flonase Allergy Relief) Allergies Allergy/AdvReac Type Severity Reaction Status Date / Time penicillin G [Penicillin G] Allergy Severe ITCHY/RASH Verified 01/27/24 09:24 Sulfa (Sulfonamide Allergy Severe ITCHY,RASH, Verified 01/27/24 09:24 Antibiotics) rash [Sulfa (Sulfonamides)] trimethoprim [From Bactrim] Allergy Severe HIVES Verified 01/27/24 09:24 Review of Systems Review of Systems: Constitutional : No Weight loss, No Fever, No Chills ENT/Mouth : No sore throat, No Rhinorrhea Eyes: No Swelling, No Redness Cardiovascular : No Chest Pain, No SOB, NoEdema Respiratory : No Cough, No Sputum, No Wheezing Gastrointestinal : no Nausea, no Vomiting,no Diarrhea, positive abdominal Pain, No Hematochezia, No Melena Genitourinary : No Dysuria, No Urinary Frequency, No Hematuria, No Urgency Musculoskeletal : No joint pain, No Myalgias, No Joint Swelling Skin : No Skin Lesions, No rash Neuro : No Weakness, No Numbness, No Dizziness, No Headache Psych : pos Anxiety/Panic, No Depression Heme/Lymph: No Bruising, No Lymphadenopathy Endocrine : No Polyuria, No Polydipsia All other systems reviewed and are negative. [facility] Past Medical History Attestation statement: The following information was validated with the patient. Source: old records reviewed Medical History Bleeding hemorrhoids Essential hypertension PVC (premature ventricular contraction) PAC (premature atrial contraction) SVT (supraventricular tachycardia) Chronic constipation High blood pressure Vertigo Dementia Arthritis Anxiety Surgical History No pertinent past surgical history Social History Social History Alcohol intake: never Patient Tobacco Use Status: Never used Tobacco Advance Directives: Yes Advance Directives on File: Yes Advance Directives Date on File: 01/28/24 Physical Exam Vital Signs: Vital Signs: Last Vital Signs Temp 97.6 F 01/28/24 12:35 Pulse 84 01/28/24 12:35 Resp 16 01/28/24 12:35 BP 130/72 01/28/24 12:35 Pulse Ox 96 01/28/24 12:35 O2 Del Method Room Air 01/28/24 12:35 BMI result Body Mass Index 28.0 Appearance: Alert. Oriented X2. No acute distress. Eyes: Pupils equal, round and reactive to light. ENT: Pharynx normal. Neck: Normal inspection. Neck supple. CVS: Normal heart rate and rhythm. Pulses normal. Respiratory: No respiratory distress. Breath sounds normal. Abdomen: Soft and nontender. : bunn catheter she is just carrying around above her waist clear yellow urine Skin: Skin warm and dry. Normal skin color. Normal skin turgor. Extremities: No lower extremity edema. No calf ttp Neuro: Oriented X 2 confused on time. No motor deficit. No sensory deficit. Course Course Course Narrative: physician observation started at 745am while pending CM and psych consult Reevaluation(s) Reevaluation #1: psychiatry agrees no capacity I have asked CM to help with prison placement, HCP involved as well daughter and agrees Medications Administered Discontinued Medications Generic Name Dose Route Start Last Admin Trade Name Beau PRN Reason Stop Dose Admin Clonazepam 1 mg 01/28/24 08:23 01/28/24 09:03 Clonazepam 1 Mg Tablet PO 01/28/24 08:24 1 mg ONCE ONE Administration Clonazepam 0.5 mg 01/28/24 13:35 01/28/24 13:39 Clonazepam 0.5 Mg Tablet PO 01/28/24 13:36 0.5 mg ONCE ONE Administration Medical Decision Making Medical Decision Making MDM Narrative: 78 yo female with cognitive impairment, HTN, anxiety, depression with recurrent presentations and several phone calls a day regarding her bunn catheter at this time she does not seem to understand what we are talkig about regarding the bunn then returns with the same questions. she then asks for anxiety medications. 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 Differential Diagnosis Differential Diagnoses: The differential diagnosis associated with the presentation includes poor capacity for self care Admission/Observation Consideration of admission/observation: Escalation of care including admission/observation considered Consult Healthcare Provider Management of the patient was discussed with: Meat Selector Lab Data [facility] Lab Attestation statement: I reviewed the patient's lab results. 01/28/24 11:53 01/28/24 11:53 Labs: Lab Results 01/28/24 01/28/24 01/28/24 Range/Units 07:32 11:49 11:53 WBC 12.2 H (4.8-10.8) X10*3/uL RBC 4.15 L (4.20-5.50) X10*6/uL Hgb 11.7 L (12.0-16.0) g/dl Hct 34.4 L (37.0-47.0) % MCV 82.9 (80.0-98.0) fL MCH 28.2 (27.0-33.0) pg MCHC 34.0 (31.0-35.0) g/dl RDW 13.7 (11.0-16.0) % Plt Count 330 (160-400) X10*3/uL MPV 8.5 L (9.4-12.3) fL Immature Gran % (Auto) 0.4 (0.0-0.4) % Neut % (Auto) 69.2 (45-73) % Lymph % (Auto) 19.1 L (20-40) % Crawford % (Auto) 9.6 (2-11) % Eos % (Auto) 1.1 (0-4) % Baso % (Auto) 0.6 (0-2) % Lymph # (Auto) 2.3 (1.2-4.9) X10*3/uL [place] # (Auto) 1.2 (0.1-1.2) X10*3/uL Eos # (Auto) 0.1 (0.0-0.4) X10*3/uL Baso # (Auto) 0.1 (0.0-0.2) X10*3/uL Abs Immat Gran (auto) 0.05 H (0.00-0.03) X10*3/uL Absolute Neuts (auto) 8.4 H (2.0-8.3) x10*3/uL Absolute Nucleated RBC 0.000 (0.0-0.012) X10*3/uL Nucleated RBC % (auto) 0.0 (0.0-0.2) /100WBC Sodium 131 L (135-145) mmol/L Potassium 4.6 (3.3-5.1) mmol/L Chloride 97 (96-108) mmol/L Carbon Dioxide 26 (22-29) mmol/L Anion Gap 13 (12-20) BUN 18 H (9-16) mg/dL Creatinine 0.88 (0.5-1.4) mg/dL Estim Creat Clear Calc 57.7 Estimated GFR > 60 Random Glucose 102 (60-115) mg/dL Calcium 9.9 (8.4-10.2) mg/dL Urine Color Yellow Urine Appearance Clear Urine pH 5.5 (5.0-9.0) Ur Specific [place] 1.010 (1.005-1.025) Urine Protein 30 (1+) H (Neg-Trace) mg/dL Urine Glucose (UA) Negative (Negative) mg/dL Urine Ketones Negative (Negative) mg/dL Urine Blood Large (3+) H (Negative) Urine Nitrite Negative (Negative) Ur Leukocyte Esterase Trace H (Negative) Urine RBC >20 H (0-2) /HPF Urine WBC 0-5 (0-5) /HPF Ur Squamous Epith Cells 0-2 (0-2) /HPF Urine Bacteria None Seen (None Seen) Hyaline Casts 0-2 (0-2) /LPF COVID-19 ([facility]) Negative (Negative) COVID-19 Clin Com See Note External Record Review External record reviewed: Inpatient record Social Determinants Patient?s care significantly limited by Social Determinants of Health including: Problems related to primary support group Discharge Plan Discharge Clinical Impression: Bunn catheter in place, Cognitive impairment Patient Disposition: Still a Patient Prescriptions: No Action metoprolol succinate 50 mg tablet extended release 24 hr 50 mg PO DAILY Qty: 90 2RF lisinopril 40 mg tablet 40 mg PO QPM Qty: 90 0RF Rx Instructions: Please call and schedule cardiology appt melatonin 10 mg tablet extended release 10 mg PO .nightly Qty: 5 0RF mirtazapine 45 mg Tablet 45 mg PO BEDTIME omeprazole 20 mg Tablet,Delayed Release (Dr/Ec) 20 mg PO DAILY fluticasone propionate [Flonase Allergy Relief] 50 mcg/actuation spray,suspension 2 spray intranasal DAILY Qty: 16 0RF Rx Instructions: administer into each nostril trazodone 50 mg tablet 50 mg PO BEDTIME ferrous sulfate [FeroSul] 325 mg (65 mg iron) tablet 325 mg PO DAILY diphenhydramine HCl [Lou-Dryl] 25 mg tablet 25 mg PO BEDTIME PRN (Reason: itch) bisacodyl 5 mg tablet,delayed release (DR/EC) 5 mg PO DAILY PRN (Reason: constipation) rosuvastatin 20 mg tablet 20 mg PO QPM cholecalciferol (vitamin D3) 25 mcg (1,000 unit) tablet 25 mcg PO BID aspirin 81 mg tablet,delayed release (DR/EC) 81 mg PO QAM alprazolam 0.5 mg tablet 0.5 mg PO QID PRN (Reason: Anxiety) multivitamin Tablet 1 tab PO QAM sertraline 100 mg tablet 100 mg PO DAILY
[2024-01-28 07:40] LABS: Appearance Urine Clear; Color Urine Yellow; Glucose Urine UA Negative (Negative); Leukocyte Esterase Urine Trace (Negative); Nitrite Urine Negative (Negative); PH 5.5 (5.0-9.0); UMIC TRIGGER UACC YES; Urine Blood Large (3+) (Negative); Urine Ketones Negative (Negative); Urine Protein 30 (1+) mg/dL (Neg-Trace)
[2024-01-28 07:42] LABS: Bacteria Urine None Seen (None Seen); Hyaline Casts Urine 0-2 /LPF (0-2); RBC Urine >20 /HPF (0-2); Squamous Epithelial Cell Urine 0-2 /HPF (0-2); WBC Urine 0-5 /HPF (0-5)
--- NOTE | 2024-01-28 07:45 | PC.NURSE ---
Pt currently refusing lab work by [facility] at this time stating I have gotten donnie [facility] labs PA made aware.
[2024-01-28] MEDS: clonazePAM 1 MG TABLET PO (09:03)
--- NOTE | 2024-01-28 09:49 | MHC.CM.ED ---
Addendum entered by Deborah Tidwell 01/28/24 10:11: Per Leona at [facility], patient should be active with [facility] for usp and [employer] hours through [facility]. Original Note: Received case management consult from Dr Hernandez. Patient is well known to the ER due to frequent ER visits. Patient has been in the ER daily d/t anxiety and bunn. Patient currently presents as confused. Dr Hernandez has ordered a psych consult to eval if patient has capacity to make her own decisions. This consult is currently pending. Copy of HCP verified to be on file. Continue to monitor for d/c needs.
--- NOTE | 2024-01-28 11:54 | PC.NURSE ---
Re; med rec This RN completed medication rec with previous history. Pt unable to remember all of her medications
--- NOTE | 2024-01-28 12:08 | PC.NURSE ---
This RN assumed care of patient in pod. Patient presented to ED due to difficulty urinating. Pt has indwelling bunn catheter present with urine in bag. Pt was medically cleared but it was determined that patient should see psychiatry and case management due to ongoing confusion and non-compliance with medical treatment. Pt has been seen in this ER a plethora of times and frequently asks for anxiety medications. Pt is calm and cooperative upon first encounter. Pt does appear preoccupied with going home to take care of kiranas cosas . This RN validated patient's feelings but explained the need for a psychiatry consult. Patient seemed to forget this about 30 seconds later and once again asked when she was going home. Patient has 1:1 sitter in pod due to having an indwelling bunn catheter. GRACE Neri tech attempted to have patient thread bunn tubing through pants to allow the tubing to drain, however patient adamantly refused and has tubing up throught the top of the pants. Tubing is kinked, this RN attempted to educate patient as well as GRACE Davis tech however patient would not listen. Patient denies SI/HI/AH. Pt is calm and cooperative, alert and oriented x4, skin pwd, hyperverbal at times, no apparent distress noted area development consultant Carleen currently meeting with patient.
[2024-01-28 12:11] LABS: MANUAL DIFF FLAG NO
[2024-01-28 12:14] LABS: Basophils Absolute Auto 0.1 X10*3/uL (0.0-0.2); Basophils Percent Auto 0.6 % (0-2); Eosinophils Absolute Auto 0.1 X10*3/uL (0.0-0.4); Eosinophils Percent Auto 1.1 % (0-4); Hematocrit 34.4 % (37.0-47.0); Hemoglobin 11.7 g/dl (12.0-16.0); Imm Gran Abs Auto 0.05 X10*3/uL (0.00-0.03); Imm Gran Pct Auto 0.4 % (0.0-0.4); Lymphocytes Absolute Auto 2.3 X10*3/uL (1.2-4.9); Lymphocytes Percent Auto 19.1 % (20-40); Mean Corpuscular Hemoglobin 28.2 pg (27.0-33.0); Mean Corpuscular Volume 82.9 fL (80.0-98.0); Mean Platelet Volume 8.5 fL (9.4-12.3); Monocytes Absolute Auto 1.2 X10*3/uL (0.1-1.2); Monocytes Percent Auto 9.6 % (2-11); Neutrophils Absolute Auto 8.4 x10*3/uL (2.0-8.3); Neutrophils Percent Auto 69.2 % (45-73); Platelet Count 330 X10*3/uL (160-400); Red Blood Count 4.15 X10*6/uL (4.20-5.50); Red Cell Distribution Width 13.7 % (11.0-16.0); White Blood Count 12.2 X10*3/uL (4.8-10.8)
[2024-01-28 12:25] LABS: Anion Gap 13 (12-20); Blood Urea Nitrogen 18 mg/dL (9-16); Calcium 9.9 mg/dL (8.4-10.2); Carbon Dioxide 26 mmol/L (22-29); Chloride 97 mmol/L (96-108); Creatinine Clr Calc Pharmacy 57.7; Estimated Glomerular Filt Rate > 60; Glucose Random 102 mg/dL (60-115); Potassium 4.6 mmol/L (3.3-5.1); Sodium 131 mmol/L (135-145)
[2024-01-28 12:35] LABS: COVID-19 Test Negative (Negative); IDNOW Serial# 08D9AD1C
[2024-01-28] MEDS: clonazePAM 0.5 MG TABLET PO (13:39)
--- NOTE | 2024-01-28 13:40 | PC.NURSE ---
Patient states that she is feeling anxious. 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
--- NOTE | 2024-01-28 15:25 | PC.NURSE ---
family visiting with patient, attempted to update family on situation. Family confused as to why patient is being kept here at this time. Discussed section 12 with patient's family. KIKO Durant speaking with patient at this time
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
--- NOTE | 2024-01-28 15:57 | PC.NURSE ---
DO Mary spoke with patient and patient's granddaughter regarding S12 status and inability to be discharged at this time. Patient's granddaughter upset with doctor about the plan of care. DO Mary spoke with this RN stating that he spoke with Noreen's daughter who wants her to stay overnight and feels that the patient would benefit from this extra help. Continue plan of care for holding patient overnight on Section 12 and involving case management at this time
--- NOTE | 2024-01-28 17:26 | MHC.CM.ED ---
MD spoke with daughter/HCP regarding lack of capacity and invoking HCP. Pt unable to live alone. Will remain in ED overnight. CM will place referrals for senior care care with transition to LTC. Pt has CCA. CM will continue to follow.
--- NOTE | 2024-01-28 19:34 | PM.PSYCN ---
History of Present Illness Date of Service: 01/28/2024 Chief Complaint: Can't urinate Reason for Consult: capacity Requesting physician: Rochelle Hernandez Discussed with referring provider: Yes Sources of Information: patient interviewed, chart reviewed and crisis/core team assessment reviewed HPI Narrative: Mrs. Wing is a 78 year-old woman who self presented to [facility] ED reporting problems with bunn which was inserted over the weekend due to urinary retention. Pt has come to the ED every day for the past 5 days and appears to have difficulty understanding care of Bunn, necessary follow up appointments. Psychiatry was asked to assess capacity. Note that psychiatry had assessed pt back in 2019 also for capacity assessment. Pt seen in the ED. She presents as anxious and states she needs to go as her son is waiting for her. She reports she came this morning. She states she has appointments scheduled with PCP coming up in February. This creative writer completed a MOCA to assess pt's memory and cognition. Pt presents with significant impairment in executive function, visuo spatial, naming, fluency, recall and language repetition. Her orientation is fairly intact. Pt is not able to show understanding as to her medical condition nor appreciation of accepting or declining treatment. Past Psychiatric History: Patient is followed by [place] at [facility] and has been prescribed alprazolam 0.5mg TID for quite some time. She has been evaluated by crisis services multiple times when in [facility] ED and has not been found to meet LOC for psychiatric admission, but disposition recommendation has been to refer to Elder [facility]. [facility] Medical History Bleeding hemorrhoids Essential hypertension PVC (premature ventricular contraction) PAC (premature atrial contraction) SVT (supraventricular tachycardia) Chronic constipation High blood pressure Vertigo Dementia Arthritis Anxiety Surgical History No pertinent past surgical history Social History: As reported in previous section Trauma History: Not reviewed Diagnostics Vital Signs (24Hr): Vital Signs - 24 hr 01/28/24 06:28 01/28/24 10:28 01/28/24 12:35 Temperature 98.2 F 97.3 F 97.6 F Pulse Rate 82 78 84 Respiratory Rate 18 14 16 Blood Pressure 142/88 H 116/58 L 130/72 Pulse Oximetry 98 97 96 Oxygen Delivery Method Room Air Room Air Room Air 01/28/24 19:11 Temperature 97.5 F Pulse Rate 73 Respiratory Rate 16 Blood Pressure 133/69 Pulse Oximetry 98 Oxygen Delivery Method Room Air BMI result Body Mass Index 28.0 Labs 01/28/24 11:53 01/28/24 11:53 Labs: Laboratory Results - last 48 hr 01/28/24 01/28/24 01/28/24 07:32 11:49 11:53 WBC 12.2 H RBC 4.15 L Hgb 11.7 L Hct 34.4 L MCV 82.9 MCH 28.2 MCHC 34.0 RDW 13.7 Plt Count 330 MPV 8.5 L Immature Gran % (Auto) 0.4 Neut % (Auto) 69.2 Lymph % (Auto) 19.1 L Graham % (Auto) 9.6 Eos % (Auto) 1.1 Baso % (Auto) 0.6 Lymph # (Auto) 2.3 Graham # (Auto) 1.2 Eos # (Auto) 0.1 Baso # (Auto) 0.1 Abs Immat Gran (auto) 0.05 H Absolute Neuts (auto) 8.4 H Absolute Nucleated RBC 0.000 Nucleated RBC % (auto) 0.0 Sodium 131 L Potassium 4.6 Chloride 97 Carbon Dioxide 26 Anion Gap 13 BUN 18 H Creatinine 0.88 Estim Creat Clear Calc 57.7 Estimated GFR > 60 Random Glucose 102 Calcium 9.9 Urine Color Yellow Urine Appearance Clear Urine pH 5.5 Ur Specific [place] 1.010 Urine Protein 30 (1+) H Urine Glucose (UA) Negative Urine Ketones Negative Urine Blood Large (3+) H Urine Nitrite Negative Ur Leukocyte Esterase Trace H Urine RBC >20 H Urine WBC 0-5 Ur Squamous Epith Cells 0-2 Urine Bacteria None Seen Hyaline Casts 0-2 COVID-19 ([facility]) Negative COVID-19 Clin Com See Note Medications Allergies Allergies Allergy/AdvReac Type Severity Reaction Status Date / Time penicillin G [Penicillin G] Allergy Severe ITCHY/RASH Verified 01/27/24 09:24 Sulfa (Sulfonamide Allergy Severe ITCHY,RASH, Verified 01/27/24 09:24 Antibiotics) rash [Sulfa (Sulfonamides)] trimethoprim [From Bactrim] Allergy Severe HIVES Verified 01/27/24 09:24 Assessment & Plan Assessment & Plan (1) Major neurocognitive disorder: Status: Acute Code(s): F03.90 - Unspecified dementia, unspecified severity, without behavioral disturbance, psychotic disturbance, mood disturbance, and anxiety Plan Ms. Wing is a 78 year-old woman who is known to [facility] through several visits mainly for medical reasons. She has shown memory and cognitive decline back in 2020. She continues to present with significant impairment in executive function, recall, language repetition, naming and visuo spatial skills. Her orientation is fairly intact suggestive of most likely a vascular type of dementia. Her ability to comprehend and retain information is limited. She does NOT have capacity to make decisions and does require significant support coordinating medical care and making decisions on her behalf. In addition, it has been of concern that pt usually comes on her own, unable to retain information given at different times of the day and night. Capacity is NOT expected to be regained and recommend MD to invoke HCP. Total time managing care of this patient today ____ minutes.
--- NOTE | 2024-01-28 20:08 | PHA.MEDREC ---
Pharmacy Consult ? Medication Reconciliation Pharmacy has reviewed the medication reconciliation complete by Bri. Savanah Wallis, LemuelD
[2024-01-28] MEDS: Cholecalciferol (Vitamin D3) 25 MCG TABLET PO (20:52)
[2024-01-28] MEDS: traZODone HCL 50 MG TABLET PO (20:52)
[2024-01-28] MEDS: lisinopriL 40 MG TABLET PO (20:52)
[2024-01-28] MEDS: Acetaminophen 325 MG TABLET 975 MG PO (20:52)
[2024-01-28] MEDS: Atorvastatin Calcium 80 MG TABLET PO (20:52)
[2024-01-28] MEDS: Mirtazapine 15 MG TABLET 45 MG PO (23:47)
[2024-01-29 04:50] VITALS: BP 144/70; PULSE 81; RESP 17; TEMP 36.2; O2SAT 97
[2024-01-29] MEDS: Omeprazole 20 MG CAPSULE.DR PO (06:27)
[2024-01-29] MEDS: Acetaminophen 325 MG TABLET 650 MG PO (06:44)
--- NOTE | 2024-01-29 09:19 | MHC.CM.ED ---
Addendum entered by Deborah Tidwell 01/29/24 10:01: Patient's daughter/HCP, Jeanne is on-site. Jeanne is willing to take patient to her home. Patient made aware and agreeable. Patient has follow up urology appointment 02/08 at 9am. Patient is already active with [facility] for snf. They have been made aware patient will d/c to Jeanne's home. Original Note: Patient remains in ER. HCP has been invoked by Dr Hernandez due to dementia. Patient's daughter, Jeanne is her HCP. Attempted to speak with Jeanne via telephone at [phone]. Left message requesting a return telephone call. SNF referral already sent by previous CM. Clinical updates sent to facilities still following/reviewing: [facility], [facility], [facility], [facility], [facility], [facility], [facility], [facility], and [facility]. Continue to monitor for d/c needs.
[2024-01-29 09:26] VITALS: BP 148/79; PULSE 84; RESP 16; TEMP 36.6; O2SAT 97
[2024-01-29] MEDS: Multivitamin TABLET 1 TAB PO (09:34)
[2024-01-29] MEDS: Aspirin Enteric Coated 81 MG TABLET.DR PO (09:34)
[2024-01-29] MEDS: Sertraline HCL 100 MG TABLET PO (09:34)
[2024-01-29] MEDS: Metoprolol Succinate ER 50 MG TAB.ER.24H PO (09:34)
[2024-01-29] MEDS: Ferrous Sulfate 324 MG TABLET.DR PO (09:34)
[2024-01-29] MEDS: Cholecalciferol (Vitamin D3) 25 MCG TABLET PO (09:34)
[2024-01-29 10:17] VITALS: BP 148/79; PULSE 84; RESP 16; TEMP 36.6; O2SAT 97
== END 2024-01-29 10:20 | disposition home or self-care (01) ==
PROVIDERS: Emergency Provider Emergency Medicine; PCP Internal Medicine Geriatric Medicine
DX: F03.90 Unspecified dementia, unspecified severity, without behavioral disturbance, psychotic disturbance, mood disturbance, and anxiety (principal); I10 Essential (primary) hypertension; Z96.0 Presence of urogenital implants; Z11.52 Encounter for screening for COVID-19
CPT/HCPCS: 36415; 80048; 81001; 85025; 87635; 99285

== ENCOUNTER → 2024-01-28 07:10 | Outpatient (BNV) | payer OTHER, SELFPAY | PROVIDERS: Emergency Provider Emergency Medicine; PCP Internal Medicine Geriatric Medicine; Visit Provider Social Worker | DX: F03.90 Unspecified dementia, unspecified severity, without behavioral disturbance, psychotic disturbance, mood disturbance, and anxiety (principal) | CPT/HCPCS: 99285 ==

== ENCOUNTER 2024-01-31 23:59 | Emergency (ER) | payer OTHER, SELFPAY ==
[2024-02-01 00:04] VITALS: BP 142/72; PULSE 90; O2SAT 96
[2024-02-01 00:06] VITALS: BP 126/70; PULSE 84; RESP 17; TEMP 36.9; O2SAT 97; BMI 36.5
--- NOTE | 2024-02-01 00:21 | PC.NURSE ---
pt states that she was able to void without the catheter in. states she feels fine and wants to go home. pt refusing to see doctor at this time.
--- NOTE | 2024-02-01 00:25 | PC.NURSE ---
charge histotechnologist saw patient in the waiting room and brought patient back into the ER. patient telling staff that she urinated and does not need to be seen. patient brought back to her room. EDT bladder scanning her. while getting bladder scanner patient on the phone stating she is ready to go home, has urinated, and does not want to see provider.
--- NOTE | 2024-02-01 00:39 | MHC.EDTECH ---
This tech bladder scanned patient, 349MLS ,patient tolerated well. Patient stated she voided a small amount prior to scan,MD and RN aware.
--- NOTE | 2024-02-01 01:29 | ED.FEMALEGU ---
HPI - Female Genitourinary General Chief complaint: Urogenital-Female Stated complaint: catheter removed Time Seen by Provider: 02/01/24 01:29 History of Present Illness HPI Narrative: The patient is an 78-year-old female with a history of dementia who has had a urinary catheter in place recently because of apparent urinary retention. It seems that her catheter was accidentally removed tonight when her PERSONAL CARE ASSISTANT was helping her in the bathroom. The patient apparently stepped on the tubing of the catheter and the catheter came out. She was then brought to the emergency room. While in the emergency room the patient has been to the bathroom 3 times and urinated. Her postvoid residual after the final voiding was 170 mL. The patient has no abdominal pain or discomfort. No fever, sweats, chills. Related Data Home Medications Medication Instructions Recorded Confirmed mirtazapine 45 mg tablet 45 mg PO BEDTIME 08/09/20 01/28/24 omeprazole 20 mg tablet,delayed 20 mg PO DAILY 08/09/20 01/28/24 release alprazolam 0.5 mg tablet 0.5 mg PO QID PRN Anxiety 01/28/24 01/28/24 aspirin 81 mg tablet,delayed 81 mg PO QAM 01/28/24 01/28/24 release bisacodyl 5 mg tablet,delayed 5 mg PO DAILY PRN constipation 01/28/24 01/28/24 release cholecalciferol (vitamin D3) 25 25 mcg PO BID 01/28/24 01/28/24 mcg (1,000 unit) tablet diphenhydramine HCl 25 mg tablet 25 mg PO BEDTIME PRN itch 01/28/24 01/28/24 (Lou-Dryl) ferrous sulfate 325 mg (65 mg 325 mg PO DAILY 01/28/24 01/28/24 iron) tablet (FeroSul) melatonin 10 mg tablet,extended 10 mg PO BEDTIME PRN Insomnia 01/28/24 01/28/24 release multivitamin 1 tab PO QAM 01/28/24 01/28/24 rosuvastatin 20 mg tablet 20 mg PO QPM 01/28/24 01/28/24 sertraline 100 mg tablet 100 mg PO DAILY 01/28/24 01/28/24 trazodone 50 mg tablet 50 mg PO BEDTIME 01/28/24 01/28/24 Previous Rx's Medication Instructions Recorded metoprolol succinate 50 mg 50 mg PO DAILY #90 tabs 09/28/20 tablet,extended release 24 hr lisinopril 40 mg tablet 40 mg PO QPM #90 tabs 05/22/23 fluticasone propionate 50 2 spray intranasal DAILY #16 grams 09/16/23 mcg/actuation nasal spray,suspension (Flonase Allergy Relief) Allergies Allergy/AdvReac Type Severity Reaction Status Date / Time penicillin G [Penicillin G] Allergy Severe ITCHY/RASH Verified 01/27/24 09:24 Sulfa (Sulfonamide Allergy Severe ITCHY,RASH, Verified 01/27/24 09:24 Antibiotics) rash [Sulfa (Sulfonamides)] trimethoprim [From Bactrim] Allergy Severe HIVES Verified 01/27/24 09:24 Review of Systems Review of Systems: Yes all other systems are reviewed and are negative [facility] Past Medical History Medical History Bleeding hemorrhoids Essential hypertension PVC (premature ventricular contraction) PAC (premature atrial contraction) SVT (supraventricular tachycardia) Chronic constipation High blood pressure Vertigo Dementia Arthritis Anxiety Surgical History No pertinent past surgical history Social History Social History Alcohol intake: never Patient Tobacco Use Status: Never used Tobacco Advance Directives: Yes Advance Directives on File: Yes Advance Directives Date on File: 01/28/24 Physical Exam Vital Signs: Vital Signs: Last Vital Signs Temp 98.4 F 02/01/24 01:43 Pulse 84 02/01/24 01:43 Resp 17 02/01/24 01:43 BP 126/70 02/01/24 01:43 Pulse Ox 97 02/01/24 01:43 O2 Del Method Room Air 02/01/24 01:43 BMI result Body Mass Index 36.5 Const: Other: The patient is an 78-year-old woman who was awake and alert and does not appear in any distress whatsoever. HEENT: Other: Face is symmetrical. Tongue is moist. Head: Yes normal to inspection Eyes: Other: Pupils are round equal, conjunctivae are clear Neck: Other: No apparent JVD Resp: Effort & Inspection: normal respiratory effort Auscultation: clear to auscultation bilaterally Cardio: Rate: regular rate Rhythm: regular rhythm Heart sounds: S1 normal heart sound present and S2 normal heart sound present GI: Other: The abdomen is soft and nontender. No apparent suprapubic fullness or tenderness. Back/Spine/Pelvis: Other: No CVA percussion tenderness Skin: Other: Skin is dry and unremarkable Neuro: Other: The patient is awake and alert. Demeanor is nontoxic. Gait is steady. She seems grossly neurologically intact. Extrem: Other: No peripheral edema Medical Decision Making Medical Decision Making MDM Narrative: The patient has had a urinary catheter recently apparently because of urinary retention. Her catheter came out accidentally tonight when she accidentally trod on the tubing. Clinically the patient looked quite well. She urinated 3 times in the emergency room. Ultimately her postvoid residual was 170 mL. It was my opinion that this was small enough that she probably does not require another catheter. She will therefore be discharged to follow up with Urology group as currently scheduled in about a week's time. The question of the need for a catheter can be revisited at that time. She was therefore discharged without a catheter. Discharge Plan Discharge Clinical Impression: Urinary retention Patient Disposition: Home, Self-Care Additional Instructions: You seemed to have been able to empty your bladder sufficiently that I do not think you need to continue with the catheter at this point. Please keep your appointment on February 08 with the urology office and discuss this question further. If you are worse before your appointment with the urologist please return to the emergency room. Prescriptions: No Action metoprolol succinate 50 mg tablet extended release 24 hr 50 mg PO DAILY Qty: 90 2RF lisinopril 40 mg tablet 40 mg PO QPM Qty: 90 0RF Rx Instructions: Please call and schedule cardiology appt mirtazapine 45 mg Tablet 45 mg PO BEDTIME omeprazole 20 mg Tablet,Delayed Release (Dr/Ec) 20 mg PO DAILY fluticasone propionate [Flonase Allergy Relief] 50 mcg/actuation spray,suspension 2 spray intranasal DAILY Qty: 16 0RF Rx Instructions: administer into each nostril trazodone 50 mg tablet 50 mg PO BEDTIME ferrous sulfate [FeroSul] 325 mg (65 mg iron) tablet 325 mg PO DAILY diphenhydramine HCl [Lou-Dryl] 25 mg tablet 25 mg PO BEDTIME PRN (Reason: itch) bisacodyl 5 mg tablet,delayed release (DR/EC) 5 mg PO DAILY PRN (Reason: constipation) rosuvastatin 20 mg tablet 20 mg PO QPM cholecalciferol (vitamin D3) 25 mcg (1,000 unit) tablet 25 mcg PO BID aspirin 81 mg tablet,delayed release (DR/EC) 81 mg PO QAM alprazolam 0.5 mg tablet 0.5 mg PO QID PRN (Reason: Anxiety) multivitamin Tablet 1 tab PO QAM sertraline 100 mg tablet 100 mg PO DAILY melatonin 10 mg tablet extended release 10 mg PO BEDTIME PRN (Reason: Insomnia) Referrals: Shirley Coles MD [Physician] - (question of urinary retention) Interventions: LWBS Worksheet Last Done: 02/01/24 00:22 ED Discharge Assessment Last Done: 02/01/24 01:43 Discharge Date/Time: 02/01/24 01:43
[2024-02-01 01:43] VITALS: BP 126/70; PULSE 84; RESP 17; TEMP 36.9; O2SAT 97
== END 2024-02-01 01:43 | disposition home or self-care (01) ==
PROVIDERS: Emergency Provider Emergency Medicine; PCP Internal Medicine Geriatric Medicine
DX: R33.9 Retention of urine, unspecified (principal); F03.90 Unspecified dementia, unspecified severity, without behavioral disturbance, psychotic disturbance, mood disturbance, and anxiety; I10 Essential (primary) hypertension
CPT/HCPCS: 99282; 99284

== ENCOUNTER 2024-02-02 14:49 | Emergency (ER) | payer OTHER, SELFPAY ==
--- NOTE | 2024-02-02 15:01 | MHC.CM.ED ---
Received notification from Dr Hernandez that patient has returned to ER. Patient is well known to [facility]. Patient was found not to have capacity on 01/28 and HCP was invoked by Dr Fernandez. At that time, patient was d/c to daughter/HCP, Jeanne's home. Attempted to speak with Jeanne via telephone at [phone]. Left message requesting return telephone call. Continue to monitor for d/c needs.
[2024-02-02 15:11] VITALS: BP 135/67; BP 176/92; PULSE 78; PULSE 86; RESP 18; TEMP 36.8; O2SAT 97; O2SAT 98; BMI 26.7
[2024-02-02] MEDS: cefuroxime axetiL 250 MG TABLET PO (15:19)
--- NOTE | 2024-02-02 15:19 | ED_ITS ---
HPI - Female Genitourinary General Chief complaint: Urogenital-Female Stated complaint: BLOOD IN URINE Time Seen by Provider: 02/02/24 14:53 Source: patient, EMS and old records reviewed Mode of arrival: EMS Limitations: other (poor historian) History of Present Illness HPI Narrative: 78 yo female with cognitive impairment, HTN, anxiety, depression, recent urinary retention with bunn placement on 01/25/24 here with c/o noting blood on the underwear she thinks she is bleeding from the opening of the bunn catheter. She denies n/v/d fevers or pain. She has called 6 times since this AM. She also states she came here for her clothes. MD elicited complaint: other (bunn catheter problem) Onset (ago): day(s) (1) Location of symptoms: urethra Severity: mild Vaginal discharge: none Vaginal bleeding: none Exacerbating factors: other (when she stands up and walks she notes the symptoms) Relieving factors: none Associated symptoms: denies other symptoms Related Data Home Medications Medication Instructions Recorded Confirmed mirtazapine 45 mg tablet 45 mg PO BEDTIME 08/09/20 01/28/24 omeprazole 20 mg tablet,delayed 20 mg PO DAILY 08/09/20 01/28/24 release alprazolam 0.5 mg tablet 0.5 mg PO QID PRN Anxiety 01/28/24 01/28/24 aspirin 81 mg tablet,delayed 81 mg PO QAM 01/28/24 01/28/24 release bisacodyl 5 mg tablet,delayed 5 mg PO DAILY PRN constipation 01/28/24 01/28/24 release cholecalciferol (vitamin D3) 25 25 mcg PO BID 01/28/24 01/28/24 mcg (1,000 unit) tablet diphenhydramine HCl 25 mg tablet 25 mg PO BEDTIME PRN itch 01/28/24 01/28/24 (Lou-Dryl) ferrous sulfate 325 mg (65 mg 325 mg PO DAILY 01/28/24 01/28/24 iron) tablet (FeroSul) melatonin 10 mg tablet,extended 10 mg PO BEDTIME PRN Insomnia 01/28/24 01/28/24 release multivitamin 1 tab PO QAM 01/28/24 01/28/24 rosuvastatin 20 mg tablet 20 mg PO QPM 01/28/24 01/28/24 sertraline 100 mg tablet 100 mg PO DAILY 01/28/24 01/28/24 trazodone 50 mg tablet 50 mg PO BEDTIME 01/28/24 01/28/24 Previous Rx's Medication Instructions Recorded metoprolol succinate 50 mg 50 mg PO DAILY #90 tabs 09/28/20 tablet,extended release 24 hr lisinopril 40 mg tablet 40 mg PO QPM #90 tabs 05/22/23 fluticasone propionate 50 2 spray intranasal DAILY #16 grams 09/16/23 mcg/actuation nasal spray,suspension (Flonase Allergy Relief) Allergies Allergy/AdvReac Type Severity Reaction Status Date / Time penicillin G [Penicillin G] Allergy Severe ITCHY/RASH Verified 01/27/24 09:24 Sulfa (Sulfonamide Allergy Severe ITCHY,RASH, Verified 01/27/24 09:24 Antibiotics) rash [Sulfa (Sulfonamides)] trimethoprim [From Bactrim] Allergy Severe HIVES Verified 01/27/24 09:24 Review of Systems Review of Systems: Constitutional : No Fever, No Chills, No Fatigue ENT/Mouth : No sore throat, No Rhinorrhea Eyes: No Eye Pain, No Swelling, No Redness Cardiovascular : No Chest Pain, No SOB, No Dyspnea on Exertion Respiratory : No Cough, No Sputum Gastrointestinal : No Nausea, No Vomiting, No Diarrhea, No abdominal Pain Genitourinary : No Dysuria, No Urinary Frequency, No Hematuria, pos urethral pain Musculoskeletal : No joint pain, No Myalgias, No Joint Swelling Skin : No Skin Lesions, No rash Neuro : No Weakness, No Numbness, No Dizziness, no Headache Psych : pos Anxiety/Panic, No Depression All other systems reviewed and are negative [facility] Past Medical History Attestation statement: The following information was validated with the patient. Source: old records reviewed Medical History Bleeding hemorrhoids Essential hypertension PVC (premature ventricular contraction) PAC (premature atrial contraction) SVT (supraventricular tachycardia) Chronic constipation High blood pressure Vertigo Dementia Arthritis Anxiety Surgical History No pertinent past surgical history Social History Social History Alcohol intake: never Patient Tobacco Use Status: Never used Tobacco Advance Directives Date on File: 01/28/24 Physical Exam Vital Signs: Vital Signs: Last Vital Signs Temp 98.3 F 02/02/24 15:11 Pulse 78 02/02/24 15:11 Resp 18 02/02/24 15:11 BP 135/67 02/02/24 15:11 Pulse Ox 98 02/02/24 15:11 O2 Del Method Room Air 02/02/24 15:11 BMI result Body Mass Index 26.7 Appearance: Alert. Oriented X to person and place. No acute distress. Eyes: Pupils equal, round and reactive to light. ENT: Pharynx normal. Neck: Normal inspection. Neck supple. CVS: Normal heart rate and rhythm. Pulses normal. Respiratory: No respiratory distress. Breath sounds normal. Abdomen: Soft and non-tender. Gu: no blood in bunn bag line is clear. it is no longer clipped into the attachment she has it wrapped around going through the back of her underwear and in the sweatpants it is pulling down. The bunn bulb seems to be noted at the opening of the urethra and the urethra is boggy and red. dried pink tinge on underwear. RN Luz Frank present for event Skin: Skin warm and dry. Normal skin color. Normal skin turgor. Extremities: No lower extremity edema. No calf ttp Neuro: Oriented X 2. No motor deficit. No sensory deficit. Course Course Course Narrative: signed out to Dr. Bergeron pending CM input physician observation started at 355pm until they can figure out safe discharge Medications Administered Discontinued Medications Generic Name Dose Route Start Last Admin Trade Name Freq PRN Reason Stop Dose Admin Cefuroxime Axetil 250 mg 02/02/24 15:06 02/02/24 15:19 Cefuroxime Axetil 250 Mg Tablet PO 02/02/24 15:07 250 mg ONCE ONE Administration Medical Decision Making Medical Decision Making MDM Narrative: 78 yo female with cognitive impairment, HTN, anxiety, depression, recent urinary retention with bunn placement on 01/25/24 here with c/o noting blood on underwear worse when she moves and walks. Her bunn catheter is not even in the device it is pulling on the line and bag there is friction caused and trauma to the urethra with bogginess and injury. At this time will start on ceftin given poor care of bunn and urethritis, CM involved given concern for safey AGAIN. Differential Diagnosis Differential Diagnoses: The differential diagnosis associated with the presentation includes cognitive impairment, urethral damage, friction from tubing and incorrect care of bunn Consult Healthcare Provider Management of the patient was discussed with: Train Electronic Technician (CM aware) Independent Historian Clinical information obtained from an independent historian. History obtained from or confirmed by: EMS External Record Review External record reviewed: Inpatient record Social Determinants Patient?s care significantly limited by Social Determinants of Health including: Problems related to primary support group Discharge Plan Discharge Clinical Impression: Urethral bleeding Patient Disposition: Still a Patient Instructions: Bunn Catheter Placement and Care (ED) Additional Instructions: finish antibiotic return for worsening symptoms or concerns. Prescriptions: No Action metoprolol succinate 50 mg tablet extended release 24 hr 50 mg PO DAILY Qty: 90 2RF lisinopril 40 mg tablet 40 mg PO QPM Qty: 90 0RF Rx Instructions: Please call and schedule cardiology appt mirtazapine 45 mg Tablet 45 mg PO BEDTIME omeprazole 20 mg Tablet,Delayed Release (Dr/Ec) 20 mg PO DAILY fluticasone propionate [Flonase Allergy Relief] 50 mcg/actuation spray,suspension 2 spray intranasal DAILY Qty: 16 0RF Rx Instructions: administer into each nostril trazodone 50 mg tablet 50 mg PO BEDTIME ferrous sulfate [FeroSul] 325 mg (65 mg iron) tablet 325 mg PO DAILY diphenhydramine HCl [Lou-Dryl] 25 mg tablet 25 mg PO BEDTIME PRN (Reason: itch) bisacodyl 5 mg tablet,delayed release (DR/EC) 5 mg PO DAILY PRN (Reason: constipation) rosuvastatin 20 mg tablet 20 mg PO QPM cholecalciferol (vitamin D3) 25 mcg (1,000 unit) tablet 25 mcg PO BID aspirin 81 mg tablet,delayed release (DR/EC) 81 mg PO QAM alprazolam 0.5 mg tablet 0.5 mg PO QID PRN (Reason: Anxiety) multivitamin Tablet 1 tab PO QAM sertraline 100 mg tablet 100 mg PO DAILY melatonin 10 mg tablet extended release 10 mg PO BEDTIME PRN (Reason: Insomnia)
[2024-02-02 15:22] VITALS: BP 133/64; PULSE 72; RESP 16; TEMP 36.6; O2SAT 97
[2024-02-02 17:27] VITALS: BP 133/64; PULSE 78; RESP 16; TEMP 37; O2SAT 99
--- NOTE | 2024-02-02 17:29 | MHC.CM.ED ---
Addendum entered by Neetu Swanson 02/02/24 17:54: Pt was discharged home with son in law (Robyn Meadows's ). Robyn had recent surgery. Dr. Bergeron spoke with LILY. Pt will be staying with HCP/daughter and LILY. CM was notified after patient was discharged home. Original Note: Called invoked HCP/daughter, Robyn Meadows ([phone]) and left a message with regards to discharge planning for her mother.
== END 2024-02-02 17:28 | disposition home or self-care (01) ==
PROVIDERS: Emergency Provider Emergency Medicine
DX: N36.8 Other specified disorders of urethra (principal); R33.9 Retention of urine, unspecified; I10 Essential (primary) hypertension; F03.90 Unspecified dementia, unspecified severity, without behavioral disturbance, psychotic disturbance, mood disturbance, and anxiety
CPT/HCPCS: 99284

== ENCOUNTER 2024-02-08 03:26 | Emergency (ER) | payer OTHER, SELFPAY ==
--- NOTE | 2024-02-08 04:04 | ED_ITS ---
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 She has also just been seen by psychiatry and HCP has been invoked due to lack of understanding of her medical issues and advancing dementia. 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 She c/o catheter bag leaking today and breaking. No other complaints. MD elicited complaint: other (bunn catheter bag broke) Onset (ago): day(s) (1) Severity: mild Exacerbating factors: none Relieving factors: none Associated symptoms: denies other symptoms Treatment prior to arrival: none Related Data Home Medications Medication Instructions Recorded Confirmed mirtazapine 45 mg tablet 45 mg PO BEDTIME 08/09/20 01/28/24 omeprazole 20 mg tablet,delayed 20 mg PO DAILY 08/09/20 01/28/24 release alprazolam 0.5 mg tablet 0.5 mg PO QID PRN Anxiety 01/28/24 01/28/24 aspirin 81 mg tablet,delayed 81 mg PO QAM 01/28/24 01/28/24 release bisacodyl 5 mg tablet,delayed 5 mg PO DAILY PRN constipation 01/28/24 01/28/24 release cholecalciferol (vitamin D3) 25 25 mcg PO BID 01/28/24 01/28/24 mcg (1,000 unit) tablet diphenhydramine HCl 25 mg tablet 25 mg PO BEDTIME PRN itch 01/28/24 01/28/24 (Lou-Dryl) ferrous sulfate 325 mg (65 mg 325 mg PO DAILY 01/28/24 01/28/24 iron) tablet (FeroSul) melatonin 10 mg tablet,extended 10 mg PO BEDTIME PRN Insomnia 01/28/24 01/28/24 release multivitamin 1 tab PO QAM 01/28/24 01/28/24 rosuvastatin 20 mg tablet 20 mg PO QPM 01/28/24 01/28/24 sertraline 100 mg tablet 100 mg PO DAILY 01/28/24 01/28/24 trazodone 50 mg tablet 50 mg PO BEDTIME 01/28/24 01/28/24 Previous Rx's Medication Instructions Recorded metoprolol succinate 50 mg 50 mg PO DAILY #90 tabs 09/28/20 tablet,extended release 24 hr lisinopril 40 mg tablet 40 mg PO QPM #90 tabs 05/22/23 fluticasone propionate 50 2 spray intranasal DAILY #16 grams 09/16/23 mcg/actuation nasal spray,suspension (Flonase Allergy Relief) cefuroxime axetil 250 mg tablet 250 mg PO BID 7 days #14 tabs 02/02/24 Allergies Allergy/AdvReac Type Severity Reaction Status Date / Time penicillin G [Penicillin G] Allergy Severe ITCHY/RASH Verified 01/27/24 09:24 Sulfa (Sulfonamide Allergy Severe ITCHY,RASH, Verified 01/27/24 09:24 Antibiotics) rash [Sulfa (Sulfonamides)] trimethoprim [From Bactrim] Allergy Severe HIVES Verified 01/27/24 09:24 Review of Systems Review of Systems: Constitutional : No Fever, No Chills, No Fatigue ENT/Mouth : No sore throat, No Rhinorrhea Eyes: No Eye Pain, No Swelling, No Redness Cardiovascular : No Chest Pain, No SOB, No Dyspnea on Exertion Respiratory : No Cough, No Sputum Gastrointestinal : No Nausea, No Vomiting, No Diarrhea, No abdominal Pain Genitourinary : No Dysuria, No Urinary Frequency, No Hematuria, Musculoskeletal : No joint pain, No Myalgias, No Joint Swelling Skin : No Skin Lesions, No rash All other systems reviewed and are negative [facility] Past Medical History Attestation statement: The following information was validated with the patient. Source: old records reviewed Medical History Bleeding hemorrhoids Essential hypertension PVC (premature ventricular contraction) PAC (premature atrial contraction) SVT (supraventricular tachycardia) Chronic constipation High blood pressure Vertigo Dementia Arthritis Anxiety Surgical History No pertinent past surgical history Social History Social History Alcohol intake: never Patient Tobacco Use Status: Never used Tobacco Advance Directives Date on File: 01/28/24 Physical Exam Vital Signs: Appearance: Alert. Oriented X2. No acute distress. Eyes: Pupils equal, round and reactive to light. ENT: Pharynx normal. Neck: Normal inspection. Neck supple. CVS: Normal heart rate and rhythm. Pulses normal. Respiratory: No respiratory distress. Breath sounds normal. Abdomen: Soft and nontender. : catheter bag is leaking replaced without issue urine is clear in nature Skin: Skin warm and dry. Normal skin color. Normal skin turgor. Extremities: No lower extremity edema. No calf ttp Neuro: Oriented X 2. No motor deficit. No sensory deficit. Medical Decision Making Medical Decision Making MDM Narrative: 78 yo female with PMH of anxiety, HTN, bunn catheter for retention placed this month here with leaking bunn catheter bag at this time will replace urine is clear and yellow. Here frequently for same complaint. I have notified psychiatry, case management and elder neglect services have been notified in the past. 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 She will be once again discharged with her same complaints and lack of understanding of her medical issues. Differential Diagnosis Differential Diagnoses: The differential diagnosis associated with the presentation includes poor understanding of bunn catheter, poor care at home Admission/Observation Consideration of admission/observation: Escalation of care including admission/observation considered states she has all the help she needs at home - is staying at her house with her son Independent Historian Clinical information obtained from an independent historian. History obtained from or confirmed by: EMS External Record Review External record reviewed: Inpatient record Discharge Plan Discharge Clinical Impression: Encounter for evaluation of Bunn catheter Patient Disposition: Home, Self-Care Instructions: Bunn Catheter Placement and Care (ED) Prescriptions: No Action metoprolol succinate 50 mg tablet extended release 24 hr 50 mg PO DAILY Qty: 90 2RF lisinopril 40 mg tablet 40 mg PO QPM Qty: 90 0RF Rx Instructions: Please call and schedule cardiology appt mirtazapine 45 mg Tablet 45 mg PO BEDTIME omeprazole 20 mg Tablet,Delayed Release (Dr/Ec) 20 mg PO DAILY fluticasone propionate [Flonase Allergy Relief] 50 mcg/actuation spray,suspension 2 spray intranasal DAILY Qty: 16 0RF Rx Instructions: administer into each nostril trazodone 50 mg tablet 50 mg PO BEDTIME ferrous sulfate [FeroSul] 325 mg (65 mg iron) tablet 325 mg PO DAILY diphenhydramine HCl [Lou-Dryl] 25 mg tablet 25 mg PO BEDTIME PRN (Reason: itch) bisacodyl 5 mg tablet,delayed release (DR/EC) 5 mg PO DAILY PRN (Reason: constipation) rosuvastatin 20 mg tablet 20 mg PO QPM cholecalciferol (vitamin D3) 25 mcg (1,000 unit) tablet 25 mcg PO BID aspirin 81 mg tablet,delayed release (DR/EC) 81 mg PO QAM alprazolam 0.5 mg tablet 0.5 mg PO QID PRN (Reason: Anxiety) multivitamin Tablet 1 tab PO QAM sertraline 100 mg tablet 100 mg PO DAILY melatonin 10 mg tablet extended release 10 mg PO BEDTIME PRN (Reason: Insomnia) cefuroxime axetil 250 mg tablet 250 mg PO BID 7 Days Qty: 14 0RF Print Language: Burundian
[2024-02-08 04:11] VITALS: BP 174/94; PULSE 89; O2SAT 99; BMI 28.0
--- NOTE | 2024-02-08 04:30 | PC.NURSE ---
Bunn bag was changed and resecured to pt's left leg. Pt educated on bunn cath care. Pt instructed to not tuck or wrap tubing in underwear and instructed to keep the bunn cath low. Pt also educated on how to empty the bunn bag at home.
[2024-02-08 04:41] VITALS: BP 164/76; PULSE 88; RESP 16; TEMP 37; O2SAT 98
== END 2024-02-08 04:45 | disposition home or self-care (01) ==
PROVIDERS: Emergency Provider Emergency Medicine; PCP Internal Medicine Geriatric Medicine
DX: Z43.6 Encounter for attention to other artificial openings of urinary tract (principal); R33.9 Retention of urine, unspecified; I10 Essential (primary) hypertension; F03.90 Unspecified dementia, unspecified severity, without behavioral disturbance, psychotic disturbance, mood disturbance, and anxiety
CPT/HCPCS: 99282; 99283

== ENCOUNTER 2024-02-09 08:53 | Outpatient (AMB) | payer OTHER, SELFPAY ==
--- NOTE | 2024-02-09 09:06 | A.OFFVIS_ITS ---
Intake Intake Visit Reasons: [facility]- acute urinary retention Intake Note: New Patient presents for initial visit for [facility] follow up urinary retention Urology Medications: none Blood Thinner: aspirin PVR: 0ml's Department Chairperson Required: Yes Department Chairperson Name: FLORI ROLLINSSIRIJoseph Accompanied by: Unknown Allergies penicillin G [Penicillin G] Allergy (Severe, Verified 02/09/24 09:32) ITCHY/RASH Sulfa (Sulfonamide Antibiotics) [Sulfa (Sulfonamides)] Allergy (Severe, Verified 02/09/24 09:32) ITCHY,RASH, rash trimethoprim [From Bactrim] Allergy (Severe, Verified 02/09/24 09:32) HIVES Medication List - Last Reconciled 02/09/24 by NOLVIA Saldana- alprazolam 0.5 mg PO QID PRN amlodipine 10 mg PO DAILY aspirin 81 mg PO QAM bisacodyl 5 mg PO DAILY PRN cefuroxime axetil 250 mg PO BID 7 days cholecalciferol (vitamin D3) 25 mcg PO BID diphenhydramine HCl (Lou-Dryl) 25 mg PO BEDTIME PRN ferrous sulfate (FeroSul) 325 mg PO DAILY fluticasone propionate 50 mcg/actuation (Flonase Allergy Relief) 2 sprays intranasal DAILY lisinopril 40 mg PO QPM melatonin ER 10 mg PO BEDTIME PRN metoprolol succinate ER 50 mg PO DAILY mirtazapine 45 mg PO BEDTIME multivitamin 1 tab PO QAM omeprazole 20 mg PO DAILY rosuvastatin 20 mg PO QPM sertraline 100 mg PO DAILY trazodone 50 mg PO BEDTIME HPI HPI Comments History of Present Illness Details Noreen is a 78-year-old Chinese-speaking female patient of Dr. Patiño was accompanied by her friend at today's office visit. She has a past medical history of hemorrhoids, hypertension, SVT, chronic constipation, vertigo, dementia, arthritis, and anxiety. She presents to the office today as a new patient for urinary retention. In discussion with the patient today she reports having had an episode of urinary retention at which time she seeked emergency room services at [facility] and a catheter was placed. She discusses having had no urological issues prior to ER visit however patient at times throughout todays appointment continues to repeat conversation. It appears she has seeked emergency room services multiple times since Shen catheter was placed for numerous reasons. Voiding trial performed in office. Patient was able to independently void. Discussed at length potential causes of urinary retention. She otherwise denies dysuria, foul smelling urine, changes to urinary stream, flank pain, fever, and or chills. [facility] Medical History Bleeding hemorrhoids Essential hypertension PVC (premature ventricular contraction) PAC (premature atrial contraction) SVT (supraventricular tachycardia) Chronic constipation High blood pressure Vertigo Dementia Arthritis Anxiety Surgical History No pertinent past surgical history Social History Alcohol intake: never Patient Tobacco Use Status: Never used Tobacco Advance Directives Date on File: 01/28/24 Review of Systems Const Reports as per [facility] Eyes Reports no additional complaints ENT Reports no additional complaints Card Reports as per [facility] Resp Reports no additional complaints GI Reports as per [facility] Reports as per HPI Musc Reports as per [facility] Neuro Reports as per [facility] Psych Reports as per HPI Flakito/Lymph Reports no additional complaints Aller/Immun Reports no additional complaints Physical Exam Const General: comfortable, no acute distress, well developed, alert and awake Nutritional Appearance: overweight Orientation/consciousness: oriented to person Limitations: no limitations HEENT Head: Yes normal to inspection, Yes normocephalic and Yes atraumatic Ears: hearing grossly normal bilaterally Eyes General: appearance normal, both eyes and all related structures Neck Neck: Yes normal visual inspection and Yes trachea midline Chest Chest palpation & inspection: normal inspection of the chest Resp Effort & Inspection: normal respiratory effort and able to speak in complete sentences Cardio Rate: regular rate GI Inspection: Yes normal to inspection General: Yes no CVA tenderness Back/Spine/Pelvis Back: no CVA tenderness Skin General skin exam: no rashes or lesions noted Neuro General: oriented to person Extrem General: Yes normal to inspection Psych Appearance: grossly normal and well kempt Mental Status: other (At times patient repeats herself) Speech and movement: Normal speech and movement present and Clear speech present Affect: normal affect Thought process: Perseverating thought process present Thought content: Normal thought content present Insight: Limited insight present (Psych) Judgement: Limited judgement present (Psych) Office Procedures Bladder/Catheter Procedure Details: 120 mls sterile water instilled into bladder, 16 fr catheter with 10 ml balloon removed, pt tolerated removal well. MA to room to bladder scan 08857-[id number] of Bladder Procedure code (CPT) selection complete Post Void Residual Post Residual Void Post Void Residual (PVR): 0 80086-Ksqe Void Residual by ultrasound Assessment & Plan Assessment & Plan (1) Urinary retention: Code(s): R33.9 - Retention of urine, unspecified Plan In office voiding trial performed; patient was successfully able to independently void. Discussed at length potential causes for urinary retention Discussed possible near future in office cystoscopy for further assessment evaluation. Start Flomax as discussed and prescribed. Follow-up with nursing in 2 weeks for PVR. Discussed, educated, encouraged on the importance of drinking water in seeking medical treatment if unable to void Will obtain retroperitoneal ultrasound for further assessment evaluation. Follow-up with provider in 3 months with imaging to be completed prior; or sooner with any issues, concerns, and or questions. Orders: Orders AMB Bladder/Catheter Procedure Today R33.9 - Retention of urine, unspecified US retroperitoneal comp Today R33.9 - Retention of urine, unspecified AMB Post Void Residual by ultrasound Today Z13.9 - Encounter for screening, unspecified Medications: New tamsulosin 0.4 mg PO BEDTIME 30 days 30 caps 3RF N40.1 - Benign prostatic hyperplasia with lower urinary tract symptoms, R35.1 - Nocturia Patient Instructions: The patient had an opportunity to ask questions regarding the treatment plan. All questions were answered. Physical exam, labs, and imaging were discussed and reviewed in detail. As well as risks, benefits, and discussion of treatment choices. No major barriers to understanding were identified. The patient expressed understanding and agreement with the above treatment plan. The patient was made aware they should contact our office by phone for worsening of their current condition, the appearance of new symptoms, or with any questions or concerns. Compliance is encouraged with any medications and follow up testing that is ordered. It is a privilege to be allowed the opportunity to participate in? your urological care.? Again, if you have any questions or concerns If you have any questions or concerns please do not hesitate to contact me. The office is [phone]. This note is constructed using voice recognition software. While every effort has been made to ensure accuracy real estate specialist errors may have been included. Yours sincerely, NOLVIA Saldana- Coding Level of Care Code New Pt Level 4 (47010) Diagnoses Urinary retention R33.9 CPT Codes Bladder/Catheter Procedure - CPT: 47429-Rkypsipncg of Bladder ([id number]) Post Residual Void - PVR CPT Code: 83484-Qnsb Void Residual by ultrasound ([id number])
== END 2024-02-09 10:04 | disposition home or self-care (01) ==
PROVIDERS: PCP Student in an Organized Health Care Education/Training Program; Visit Provider Nurse Practitioner Family
DX: R33.9 Retention of urine, unspecified (principal)
CPT/HCPCS: 51700; 99204

== ENCOUNTER → 2024-02-09 08:53 | Outpatient (BNVA) | payer OTHER, SELFPAY | PROVIDERS: PCP Student in an Organized Health Care Education/Training Program; Visit Provider Nurse Practitioner Family | DX: R33.9 Retention of urine, unspecified (principal) | CPT/HCPCS: 51700; 51798; 99202 ==

== ENCOUNTER 2024-02-16 08:37 | Emergency (ER) | payer OTHER, SELFPAY ==
[2024-02-16 08:40] VITALS: BP 151/78; PULSE 85; RESP 20; TEMP 36.6; O2SAT 96; BMI 28.0
== END 2024-02-16 10:00 | disposition left against medical advice (07) ==
LOC: HO.ED 09:44
PROVIDERS: Emergency Provider Emergency Medicine; PCP Internal Medicine Geriatric Medicine
DX: R39.198 Other difficulties with micturition (principal)
CPT/HCPCS: 99281

== ENCOUNTER 2024-02-18 06:09 | Emergency (ER) | payer OTHER, SELFPAY ==
[2024-02-18 07:10] LABS: Hematocrit 34.7 % (37.0-47.0); Hemoglobin 11.8 g/dl (12.0-16.0); MANUAL DIFF FLAG NO; Mean Corpuscular Hemoglobin 27.9 pg (27.0-33.0); Mean Platelet Volume 8.2 fL (9.4-12.3); Platelet Count 380 X10*3/uL (160-400); Red Blood Count 4.23 X10*6/uL (4.20-5.50); Red Cell Distribution Width 13.7 % (11.0-16.0); White Blood Count 7.4 X10*3/uL (4.8-10.8)
[2024-02-18 07:12] LABS: Estimated Glomerular Filt Rate 51; Potassium 4.7 mmol/L (3.3-5.1)
[2024-02-18 07:13] LABS: Basophils Absolute Auto 0.1 X10*3/uL (0.0-0.2); Basophils Percent Auto 0.7 % (0-2); Chloride 92 mmol/L (96-108); Eosinophils Percent Auto 0.5 % (0-4); Imm Gran Abs Auto 0.03 X10*3/uL (0.00-0.03); Imm Gran Pct Auto 0.4 % (0.0-0.4); Lymphocytes Absolute Auto 2.1 X10*3/uL (1.2-4.9); Lymphocytes Percent Auto 27.6 % (20-40); Monocytes Absolute Auto 0.6 X10*3/uL (0.1-1.2); Neutrophils Absolute Auto 4.8 x10*3/uL (2.0-8.3); Neutrophils Percent Auto 62.8 % (45-73); Sodium 127 mmol/L (135-145)
[2024-02-18 07:14] LABS: Alanine Aminotransferase 17 U/L (0-31); Anion Gap 15 (12-20); Aspartate Amino Transferase 23 U/L (5-31); Bilirubin Total 0.4 mg/dL (0.0-1.0); Blood Urea Nitrogen 20 mg/dL (9-16); Calcium 9.3 mg/dL (8.4-10.2); Carbon Dioxide 25 mmol/L (22-29); Glucose Random 104 mg/dL (60-115); Total Protein 8.7 g/dL (6.5-8.0)
[2024-02-18 07:15] LABS: Albumin Level 4.4 g/dL (3.5-5.0); Alkaline Phosphatase 72 U/L (39-117)
[2024-02-18 07:32] VITALS: BP 156/66; PULSE 80; RESP 18; TEMP 37.2; O2SAT 96; BMI 28.0
== END 2024-02-18 12:55 | disposition left against medical advice (07) ==
PROVIDERS: Emergency Provider Emergency Medicine; PCP Internal Medicine Geriatric Medicine
DX: H92.02 Otalgia, left ear (principal); R10.30 Lower abdominal pain, unspecified; Z79.899 Other long term (current) drug therapy
CPT/HCPCS: 36415; 80053; 85025; 99281; 99283

== ENCOUNTER → 2024-03-01 08:24 | Outpatient (BNVA) | payer OTHER, SELFPAY | PROVIDERS: PCP Internal Medicine Geriatric Medicine; Visit Provider Nurse Practitioner Family | DX: R33.9 Retention of urine, unspecified (principal) | CPT/HCPCS: 51798 ==

== ENCOUNTER 2024-03-27 02:12 | Emergency (ER) | payer OTHER, SELFPAY ==
[2024-03-27 02:25] VITALS: BP 127/70; PULSE 79; RESP 18; TEMP 36.4; O2SAT 97; BMI 27.6
[2024-03-27 02:30] VITALS: BP 165/80; PULSE 87; O2SAT 97
== END 2024-03-27 07:26 | disposition left against medical advice (07) ==
PROVIDERS: Emergency Provider Emergency Medicine
DX: I10 Essential (primary) hypertension (principal); H92.09 Otalgia, unspecified ear
CPT/HCPCS: 99281

== ENCOUNTER 2024-04-20 03:15 | Emergency (ER) | payer OTHER, SELFPAY ==
[2024-04-20 03:36] VITALS: BP 160/83; BP 160/90; PULSE 79; PULSE 82; RESP 17; TEMP 37; O2SAT 95; O2SAT 98; BMI 35.0
--- NOTE | 2024-04-20 04:19 | PC.NURSE ---
crm manager at bedside. pt a&ox4, respirations even and unlabored, pt biba from home reporting onset of hypertension. pt reports that she checked her blood pressure and it resulted at over 150 systolic. pt also reporting bilateral arm itching due to her son spraying bug spray around her home. upon arrival pt denies headache, chest pain, sob , n/v/d.
--- NOTE | 2024-04-20 06:40 | PC.NURSE ---
pt left at this time, states she does not want to wait for a provider at this time.
== END 2024-04-20 06:41 | disposition left against medical advice (07) ==
PROVIDERS: Emergency Provider Emergency Medicine
DX: I10 Essential (primary) hypertension (principal); L29.9 Pruritus, unspecified
CPT/HCPCS: 99283; 99284

== ENCOUNTER 2024-04-28 03:41 | Emergency (ER) | payer OTHER, SELFPAY ==
[2024-04-28 03:47] VITALS: BP 139/74; BP 142/84; PULSE 78; PULSE 97; RESP 16; TEMP 37.7; O2SAT 95; BMI 32.6
--- NOTE | 2024-04-28 04:13 | ED.GENADULT ---
HPI - General Adult General Chief complaint: Abdominal Pain Stated complaint: abd pain Time Seen by Provider: 04/28/24 04:08 Source: patient Mode of arrival: ambulatory Limitations: no limitations History of Present Illness ED Provider: Dr. Marta Briscoe HPI narrative: Patient comes to the emergency room via ambulance complaining of nausea. Patient states that she has mild abdominal discomfort, no significant pain. Patient denies vomiting or diarrhea. Is fever or chills, denies feeling anxious. Earlier in triage patient said that she feels dizzy but patient describes dizziness as not feeling well, denies room spinning, denies unsteadiness or falls. Also, patient complaining of itchiness in both forearms for couple of days. Related Data Home Medications ?Medication ?Instructions ?Recorded ?Confirmed mirtazapine 45 mg tablet 45 mg PO BEDTIME 08/09/20 02/09/24 omeprazole 20 mg tablet,delayed 20 mg PO DAILY 08/09/20 02/09/24 release alprazolam 0.5 mg tablet 0.5 mg PO QID PRN Anxiety 01/28/24 02/09/24 aspirin 81 mg tablet,delayed 81 mg PO QAM 01/28/24 02/09/24 release bisacodyl 5 mg tablet,delayed 5 mg PO DAILY PRN constipation 01/28/24 02/09/24 release cholecalciferol (vitamin D3) 25 25 mcg PO BID 01/28/24 02/09/24 mcg (1,000 unit) tablet diphenhydramine HCl 25 mg tablet 25 mg PO BEDTIME PRN itch 01/28/24 02/09/24 (Lou-Dryl) ferrous sulfate 325 mg (65 mg 325 mg PO DAILY 01/28/24 02/09/24 iron) tablet (FeroSul) melatonin 10 mg tablet,extended 10 mg PO BEDTIME PRN Insomnia 01/28/24 02/09/24 release multivitamin 1 tab PO QAM 01/28/24 02/09/24 rosuvastatin 20 mg tablet 20 mg PO QPM 01/28/24 02/09/24 sertraline 100 mg tablet 100 mg PO DAILY 01/28/24 02/09/24 trazodone 50 mg tablet 50 mg PO BEDTIME 01/28/24 02/09/24 amlodipine 10 mg tablet 10 mg PO DAILY 02/09/24 02/09/24 Previous Rx's ?Medication ?Instructions ?Recorded metoprolol succinate 50 mg 50 mg PO DAILY #90 tabs 09/28/20 tablet,extended release 24 hr lisinopril 40 mg tablet 40 mg PO QPM #90 tabs 05/22/23 fluticasone propionate 50 2 spray intranasal DAILY #16 grams 09/16/23 mcg/actuation nasal spray,suspension (Flonase Allergy Relief) cefuroxime axetil 250 mg tablet 250 mg PO BID 7 days #14 tabs 02/02/24 tamsulosin 0.4 mg capsule 0.4 mg PO BEDTIME 30 days #30 caps 02/09/24 hydroxyzine HCl 25 mg tablet 25 mg PO TID PRN itching #10 tabs 04/28/24 ondansetron 4 mg disintegrating 4 mg PO Q6H PRN nausea and 04/28/24 tablet vomiting #10 tabs Allergies Allergy/AdvReac Type Severity Reaction Status Date / Time penicillin G [Penicillin G] Allergy Severe ITCHY/RASH Verified 04/28/24 03:52 Sulfa (Sulfonamide Allergy Severe ITCHY,RASH, Verified 04/28/24 03:52 Antibiotics) rash [Sulfa (Sulfonamides)] trimethoprim [From Bactrim] Allergy Severe HIVES Verified 04/28/24 03:52 Review of Systems Review of Systems: Constitutional : No Weight loss, No Fever, No Chills, No Night Sweats, No Fatigue, No Malaise ENT/Mouth : No Hearing loss, No Ear Pain, No Nasal Congestion, No Sinus Pain, No Hoarseness, No sore throat, No Rhinorrhea, No Swallowing Difficulty Eyes: No Eye Pain, No Swelling, No Redness, No Foreign Body, No Discharge, No Vision Changes Cardiovascular : No Chest Pain, No SOB, No Dyspnea on Exertion, No Orthopnea, No Edema, No Palpitations Respiratory : No Cough, No Sputum, No Wheezing, No Smoke Exposure, No Dyspnea Gastrointestinal : Complaining of Nausea, No Vomiting, No Diarrhea, No Constipation, No abdominal Pain, No Hematochezia, No Melena Genitourinary : no irregular bleeding, No Dysuria, No Urinary Frequency, No Hematuria, No Urinary Incontinence, No Urgency, No Flank Pain, No Urinary Flow Changes, No Hesitancy Musculoskeletal : No joint pain, No Myalgias, No Joint Swelling Skin : No Skin Lesions, No rash Neuro : No Weakness, No Numbness, No Paresthesias, No Loss of Consciousness, No Dizziness, No Headache Psych : No Anxiety/Panic, No Depression, No SI/HI/AH/VH, No Social Issues, Heme/Lymph: No Bruising, No Bleeding,No Lymphadenopathy Endocrine : No Polyuria, No Polydipsia, No Temperature Intolerance [facility] Past Medical History Medical History Bleeding hemorrhoids Essential hypertension PVC (premature ventricular contraction) PAC (premature atrial contraction) SVT (supraventricular tachycardia) Chronic constipation High blood pressure Vertigo Dementia Arthritis Anxiety Surgical History No pertinent past surgical history Social History Social History Alcohol intake: never Patient Tobacco Use Status: Never used Tobacco Advance Directives Date on File: 01/28/24 Physical Exam ED Vital Signs: Vital Signs - 24 hr 04/28/24 03:47 Temperature 99.9 F Pulse Rate 78 Respiratory Rate 16 Blood Pressure 139/74 Pulse Oximetry 95 Oxygen Delivery Method Room Air BMI result Body Mass Index 32.6 Const Other: Appearance: Alert. Oriented X3. No acute distress. Well-appearing Eyes: Pupils equal, round and reactive to light. ENT: Pharynx normal. Neck: Normal inspection. Neck supple. No lymph nodes noted. No crepitus CVS: Normal heart rate and rhythm. Pulses normal. Normal S1 and S2 Respiratory: No respiratory distress. Breath sounds normal. No Wheezing. No rales Abdomen: Soft and nontender. No rigidity. No distention. Skin: Skin warm and dry. Normal skin color. Normal skin turgor. Mild erythema in both forearms, scratch zhu from scratching, superficial, no infection Extremities: No lower extremity edema. No Lacerations. No Rash Neuro: Oriented X 3. No motor deficit. No sensory deficit. Moving all extremities. No slurred speech. CN 2 through 12 grossly intact Psych: calm, cooperative, normal affect Medical Decision Making Medical Decision Making MDM Narrative: -patient declined any lab work, states that she always gets blood work and it is always okay, patient requesting not to be poked today -also, patient states that she does not want any imaging, patient states that she only wants a tablet for the nausea. Patient states she does not want anything for anxiety since she has not anxious. -patient was given p.o. Zofran and diphenhydramine for the itchiness of her forearms. -patient well-appearing, physical exam reassuring, patient did not have any abdominal pain on palpation. Per patient's request, no blood or imaging were done. Differential Diagnosis Differential Diagnoses: The differential diagnosis associated with the presentation includes (Anxiety, nausea) Discharge Plan Discharge Clinical Impression: Nausea, Pruritus Patient Disposition: Home, Self-Care Instructions: Acute Abdominal Pain (ED), Itchy Skin (ED) Additional Instructions: Please follow-up with your primary care physician tomorrow. If you have any worsening or new symptoms, please return to the emergency room or call 911 Prescriptions: New ondansetron 4 mg tablet,disintegrating 4 mg PO Q6H PRN (Reason: nausea and vomiting) Qty: 10 0RF hydroxyzine HCl 25 mg tablet 25 mg PO TID PRN (Reason: itching) Qty: 10 0RF No Action metoprolol succinate 50 mg tablet extended release 24 hr 50 mg PO DAILY Qty: 90 2RF lisinopril 40 mg tablet 40 mg PO QPM Qty: 90 0RF Rx Instructions: Please call and schedule cardiology appt mirtazapine 45 mg Tablet 45 mg PO BEDTIME omeprazole 20 mg Tablet,Delayed Release (Dr/Ec) 20 mg PO DAILY fluticasone propionate [Flonase Allergy Relief] 50 mcg/actuation spray,suspension 2 spray intranasal DAILY Qty: 16 0RF Rx Instructions: administer into each nostril trazodone 50 mg tablet 50 mg PO BEDTIME ferrous sulfate [FeroSul] 325 mg (65 mg iron) tablet 325 mg PO DAILY diphenhydramine HCl [Lou-Dryl] 25 mg tablet 25 mg PO BEDTIME PRN (Reason: itch) bisacodyl 5 mg tablet,delayed release (DR/EC) 5 mg PO DAILY PRN (Reason: constipation) rosuvastatin 20 mg tablet 20 mg PO QPM cholecalciferol (vitamin D3) 25 mcg (1,000 unit) tablet 25 mcg PO BID aspirin 81 mg tablet,delayed release (DR/EC) 81 mg PO QAM alprazolam 0.5 mg tablet 0.5 mg PO QID PRN (Reason: Anxiety) multivitamin Tablet 1 tab PO QAM sertraline 100 mg tablet 100 mg PO DAILY melatonin 10 mg tablet extended release 10 mg PO BEDTIME PRN (Reason: Insomnia) cefuroxime axetil 250 mg tablet 250 mg PO BID 7 Days Qty: 14 0RF amlodipine 10 mg tablet 10 mg PO DAILY tamsulosin 0.4 mg capsule 0.4 mg PO BEDTIME 30 Days Qty: 30 3RF Print Language: Cymraes
[2024-04-28] MEDS: Ondansetron ODT 4 MG TAB.RAPDIS TRANSLINGU (04:26)
[2024-04-28] MEDS: diphenhydrAMINE HCL 25 MG CAPSULE 50 MG PO (04:26)
[2024-04-28 04:29] VITALS: BP 139/74; PULSE 78; RESP 16; TEMP 37.7; O2SAT 95
== END 2024-04-28 04:30 | disposition home or self-care (01) ==
PROVIDERS: Emergency Provider Emergency Medicine; PCP Internal Medicine Geriatric Medicine
DX: R11.0 Nausea (principal); L29.9 Pruritus, unspecified; R10.9 Unspecified abdominal pain; I10 Essential (primary) hypertension; F41.9 Anxiety disorder, unspecified; Z79.899 Other long term (current) drug therapy; Z79.82 Long term (current) use of aspirin
CPT/HCPCS: 99282; 99283

== ENCOUNTER 2024-05-07 00:11 | Emergency (ER) | payer OTHER, SELFPAY ==
[2024-05-07 00:14] VITALS: BP 112/63; BP 138/74; PULSE 82; PULSE 96; RESP 18; TEMP 37.1; O2SAT 97; BMI 30.4
== END 2024-05-07 11:53 | disposition left against medical advice (07) ==
PROVIDERS: Emergency Provider Emergency Medicine
DX: K59.00 Constipation, unspecified (principal)
CPT/HCPCS: 99281

== ENCOUNTER 2024-05-10 06:28 | Emergency (ER) | payer OTHER, SELFPAY ==
[2024-05-10 06:35] VITALS: BP 131/52; PULSE 82; O2SAT 98
[2024-05-10 06:38] VITALS: BP 132/76; PULSE 80; RESP 17; TEMP 37.2; O2SAT 97; BMI 26.8
== END 2024-05-10 07:23 | disposition left against medical advice (07) ==
PROVIDERS: Emergency Provider Emergency Medicine; PCP Internal Medicine Geriatric Medicine
DX: F41.1 Generalized anxiety disorder (principal); F43.0 Acute stress reaction; I10 Essential (primary) hypertension
CPT/HCPCS: 99281

== ENCOUNTER 2024-05-16 22:25 | Emergency (ER) | payer OTHER, SELFPAY ==
[2024-05-16 22:28] VITALS: BP 164/90; PULSE 104; O2SAT 98; BMI 32.8
[2024-05-16 22:36] VITALS: BP 147/65; PULSE 91; RESP 18; TEMP 37.3; O2SAT 96
--- NOTE | 2024-05-16 22:58 | ED_ITS ---
HPI - General Adult General Chief complaint: Nausea/Vomiting/Diarrhea Stated complaint: HTN,DIARRHEA Time Seen by Provider: 05/16/24 22:55 Source: patient Mode of arrival: EMS Limitations: language barrier History of Present Illness ED Provider: Dr. Moses Torres HPI narrative: 78-year-old female with a history of dementia, hypertension, anxiety, SVT who presents emergency department for evaluation of 1 day of headache and diarrhea. Patient is complaining of a right-sided headache which started today. The headache is a constant, throbbing sensation associated with photophobia no other symptoms. She also states she has had multiple episodes of diarrhea throughout the day but this resolved after she took 4 cups a Pepto-Bismol. Patient is well-known to the emergency department is seen here frequently for anxiety- related complaints. Related Data Home Medications ?Medication ?Instructions ?Recorded ?Confirmed mirtazapine 45 mg tablet 45 mg PO BEDTIME 08/09/20 02/09/24 omeprazole 20 mg tablet,delayed 20 mg PO DAILY 08/09/20 02/09/24 release alprazolam 0.5 mg tablet 0.5 mg PO QID PRN Anxiety 01/28/24 02/09/24 aspirin 81 mg tablet,delayed 81 mg PO QAM 01/28/24 02/09/24 release bisacodyl 5 mg tablet,delayed 5 mg PO DAILY PRN constipation 01/28/24 02/09/24 release cholecalciferol (vitamin D3) 25 25 mcg PO BID 01/28/24 02/09/24 mcg (1,000 unit) tablet diphenhydramine HCl 25 mg tablet 25 mg PO BEDTIME PRN itch 01/28/24 02/09/24 (Lou-Dryl) ferrous sulfate 325 mg (65 mg 325 mg PO DAILY 01/28/24 02/09/24 iron) tablet (FeroSul) melatonin 10 mg tablet,extended 10 mg PO BEDTIME PRN Insomnia 01/28/24 02/09/24 release multivitamin 1 tab PO QAM 01/28/24 02/09/24 rosuvastatin 20 mg tablet 20 mg PO QPM 01/28/24 02/09/24 sertraline 100 mg tablet 100 mg PO DAILY 01/28/24 02/09/24 trazodone 50 mg tablet 50 mg PO BEDTIME 01/28/24 02/09/24 amlodipine 10 mg tablet 10 mg PO DAILY 02/09/24 02/09/24 Previous Rx's ?Medication ?Instructions ?Recorded metoprolol succinate 50 mg 50 mg PO DAILY #90 tabs 09/28/20 tablet,extended release 24 hr lisinopril 40 mg tablet 40 mg PO QPM #90 tabs 05/22/23 fluticasone propionate 50 2 spray intranasal DAILY #16 grams 09/16/23 mcg/actuation nasal spray,suspension (Flonase Allergy Relief) cefuroxime axetil 250 mg tablet 250 mg PO BID 7 days #14 tabs 02/02/24 tamsulosin 0.4 mg capsule 0.4 mg PO BEDTIME 30 days #30 caps 02/09/24 hydroxyzine HCl 25 mg tablet 25 mg PO TID PRN itching #10 tabs 04/28/24 ondansetron 4 mg disintegrating 4 mg PO Q6H PRN nausea and 04/28/24 tablet vomiting #10 tabs Allergies Allergy/AdvReac Type Severity Reaction Status Date / Time penicillin G [Penicillin G] Allergy Severe ITCHY/RASH Verified 05/16/24 22:29 Sulfa (Sulfonamide Allergy Severe ITCHY,RASH, Verified 05/16/24 22:29 Antibiotics) rash [Sulfa (Sulfonamides)] trimethoprim [From Bactrim] Allergy Severe HIVES Verified 05/16/24 22:29 Review of Systems Review of Systems: Yes all other systems are reviewed and are negative [facility] Past Medical History Medical History Bleeding hemorrhoids Essential hypertension PVC (premature ventricular contraction) PAC (premature atrial contraction) SVT (supraventricular tachycardia) Chronic constipation High blood pressure Vertigo Dementia Arthritis Anxiety Surgical History No pertinent past surgical history Social History Social History Alcohol intake: never Patient Tobacco Use Status: Never used Tobacco Smoked in Last 30 Days: No Use of substances other than those prescribed or required for medical reasons: No Advance Directives: Yes Advance Directives on File: Yes Advance Directives Date on File: 01/28/24 Do you have a plan to hurt others: No Plan Physical Exam ED Vital Signs: Vital Signs - 24 hr 05/16/24 22:36 05/17/24 00:14 Temperature 99.1 F 99.1 F Pulse Rate 91 91 Respiratory Rate 18 18 Blood Pressure 147/65 H 147/65 H Pulse Oximetry 96 96 Oxygen Delivery Method Room Air Room Air BMI result Body Mass Index 32.8 Vital signs were normal Exam: General: Awake, alert in no distress Head: Normocephalic, atraumatic EENT: PERRL, Lids normal, sclera normal, conjunctiva normal, nose normal , ears normal, throat without erythema or exudates Neck: Supple, no adenopathy Lung: breath sounds symmetric, no wheezing, rales or rhonchi Chest: symmetric movement, nontender Heart: regular rate and rhythm, normal S1, S2 no murmurs or rubs Abdomen: soft, non-tender, nondistended, normal bowel sounds Back: no vertebral tenderness, no CVAT Extremities: no deformities, moves all extremities symmetrically Neuro: Awake, alert, oriented, normal speech, cranial nerves intact, moves all extremities symmetrically Psych: Pleasant, cooperative Medications Administered Discontinued Medications Generic Name Dose Route Start Last Admin Trade Name Freq PRN Reason Stop Dose Admin Acetaminophen 975 mg 05/16/24 23:41 05/16/24 23:42 Acetaminophen 325 Mg Tablet PO 05/16/24 23:42 975 mg ONCE ONE Administration Medical Decision Making Medical Decision Making [facility] Narrative: 78-year-old female with a history of dementia, hypertension, anxiety, SVT who presents emergency department for evaluation of 1 day of headache and diarrhea. Patient is complaining of a right-sided headache which started today. The headache is a constant, throbbing sensation associated with photophobia no other symptoms. She also states she has had multiple episodes of diarrhea throughout the day but this resolved after she took 4 cups a Pepto-Bismol. Patient is well-known to the emergency department is seen here frequently for anxiety- related complaints. Vital signs were unremarkable. Physical examination was normal. Differential diagnosis: ?Includes but is not limited to migraine headache, nonspecific headache, viral syndrome, anxiety Patient was initially treated with the following: Tylenol 975 mg oral Course: Patient felt better after receiving Tylenol. Her symptoms are most likely anxiety related and I did discuss this with her. Patient feels better and states she does want to be discharged home. I did put the patient on for discharge however she left prior to getting her printed instructions but was given verbal instructions by me. Chronic Conditions Patient?s care impacted by: Hypertension and Other (dementia) Discharge Plan Discharge Clinical Impression: Headache, Diarrhea Patient Disposition: Home, Self-Care Additional Instructions: Continue medications as prescribed Follow-up with your doctor in 2 days. Please return to the emergency department if your symptoms get worse or if you develop any symptoms that are concerning to you. Prescriptions: No Action metoprolol succinate 50 mg tablet extended release 24 hr 50 mg PO DAILY Qty: 90 2RF lisinopril 40 mg tablet 40 mg PO QPM Qty: 90 0RF Rx Instructions: Please call and schedule cardiology appt mirtazapine 45 mg Tablet 45 mg PO BEDTIME omeprazole 20 mg Tablet,Delayed Release (Dr/Ec) 20 mg PO DAILY fluticasone propionate [Flonase Allergy Relief] 50 mcg/actuation spray,suspension 2 spray intranasal DAILY Qty: 16 0RF Rx Instructions: administer into each nostril trazodone 50 mg tablet 50 mg PO BEDTIME ferrous sulfate [FeroSul] 325 mg (65 mg iron) tablet 325 mg PO DAILY diphenhydramine HCl [Lou-Dryl] 25 mg tablet 25 mg PO BEDTIME PRN (Reason: itch) bisacodyl 5 mg tablet,delayed release (DR/EC) 5 mg PO DAILY PRN (Reason: constipation) rosuvastatin 20 mg tablet 20 mg PO QPM cholecalciferol (vitamin D3) 25 mcg (1,000 unit) tablet 25 mcg PO BID aspirin 81 mg tablet,delayed release (DR/EC) 81 mg PO QAM alprazolam 0.5 mg tablet 0.5 mg PO QID PRN (Reason: Anxiety) multivitamin Tablet 1 tab PO QAM sertraline 100 mg tablet 100 mg PO DAILY melatonin 10 mg tablet extended release 10 mg PO BEDTIME PRN (Reason: Insomnia) cefuroxime axetil 250 mg tablet 250 mg PO BID 7 Days Qty: 14 0RF ondansetron 4 mg tablet,disintegrating 4 mg PO Q6H PRN (Reason: nausea and vomiting) Qty: 10 0RF hydroxyzine HCl 25 mg tablet 25 mg PO TID PRN (Reason: itching) Qty: 10 0RF amlodipine 10 mg tablet 10 mg PO DAILY tamsulosin 0.4 mg capsule 0.4 mg PO BEDTIME 30 Days Qty: 30 3RF Interventions: ED Discharge Assessment Last Done: 05/17/24 00:14 Discharge Date/Time: 05/17/24 00:15 Print Language: Citizen [place]
--- NOTE | 2024-05-16 23:16 | PC.NURSE ---
pt c/o headache. waiting to be seen by ED provider. pt offered po tylenol.
[2024-05-16] MEDS: Acetaminophen 325 MG TABLET 975 MG PO (23:42)
[2024-05-17 00:14] VITALS: BP 147/65; PULSE 91; RESP 18; TEMP 37.3; O2SAT 96
== END 2024-05-17 00:15 | disposition home or self-care (01) ==
PROVIDERS: Emergency Provider Emergency Medicine Emergency Medical Services
DX: R51.9 Headache, unspecified (principal); R19.7 Diarrhea, unspecified; H53.149 Visual discomfort, unspecified; Z79.899 Other long term (current) drug therapy; I10 Essential (primary) hypertension; I47.10 Supraventricular tachycardia, unspecified
CPT/HCPCS: 99283; 99284

== ENCOUNTER 2024-06-08 21:46 | Emergency (ER) | payer OTHER, SELFPAY ==
[2024-06-08 21:50] VITALS: BP 164/98; PULSE 98; O2SAT 98
[2024-06-08 21:58] VITALS: BP 161/78; PULSE 88; RESP 18; TEMP 37.3; O2SAT 98; BMI 33.5
--- NOTE | 2024-06-08 22:32 | ED.ANXIETY ---
HPI - Anxiety General Chief Complaint: Anxiety Stated Complaint: HTN Time Seen by Provider: 06/08/24 21:52 History of Present Illness HPI narrative: Patient is an 78-year-old female presented today with having anxiety. Patient is on a benzodiazepine. Patient claims that she has a prescription waiting for her at a pharmacy. Feels anxious. Came to the ER. Thought her blood pressure was high. Patient denies any chest pain or diaphoresis. Symptoms very similar to previous episodes. Related Data Home Medications ?Medication ?Instructions ?Recorded ?Confirmed mirtazapine 45 mg tablet 45 mg PO BEDTIME 08/09/20 02/09/24 omeprazole 20 mg tablet,delayed 20 mg PO DAILY 08/09/20 02/09/24 release alprazolam 0.5 mg tablet 0.5 mg PO QID PRN Anxiety 01/28/24 02/09/24 aspirin 81 mg tablet,delayed 81 mg PO QAM 01/28/24 02/09/24 release bisacodyl 5 mg tablet,delayed 5 mg PO DAILY PRN constipation 01/28/24 02/09/24 release cholecalciferol (vitamin D3) 25 25 mcg PO BID 01/28/24 02/09/24 mcg (1,000 unit) tablet diphenhydramine HCl 25 mg tablet 25 mg PO BEDTIME PRN itch 01/28/24 02/09/24 (Lou-Dryl) ferrous sulfate 325 mg (65 mg 325 mg PO DAILY 01/28/24 02/09/24 iron) tablet (FeroSul) melatonin 10 mg tablet,extended 10 mg PO BEDTIME PRN Insomnia 01/28/24 02/09/24 release multivitamin 1 tab PO QAM 01/28/24 02/09/24 rosuvastatin 20 mg tablet 20 mg PO QPM 01/28/24 02/09/24 sertraline 100 mg tablet 100 mg PO DAILY 01/28/24 02/09/24 trazodone 50 mg tablet 50 mg PO BEDTIME 01/28/24 02/09/24 amlodipine 10 mg tablet 10 mg PO DAILY 02/09/24 02/09/24 Previous Rx's ?Medication ?Instructions ?Recorded metoprolol succinate 50 mg 50 mg PO DAILY #90 tabs 09/28/20 tablet,extended release 24 hr lisinopril 40 mg tablet 40 mg PO QPM #90 tabs 05/22/23 fluticasone propionate 50 2 spray intranasal DAILY #16 grams 09/16/23 mcg/actuation nasal spray,suspension (Flonase Allergy Relief) cefuroxime axetil 250 mg tablet 250 mg PO BID 7 days #14 tabs 02/02/24 tamsulosin 0.4 mg capsule 0.4 mg PO BEDTIME 30 days #30 caps 02/09/24 hydroxyzine HCl 25 mg tablet 25 mg PO TID PRN itching #10 tabs 04/28/24 ondansetron 4 mg disintegrating 4 mg PO Q6H PRN nausea and 04/28/24 tablet vomiting #10 tabs Allergies Allergy/AdvReac Type Severity Reaction Status Date / Time penicillin G [Penicillin G] Allergy Severe ITCHY/RASH Verified 06/08/24 22:01 Sulfa (Sulfonamide Allergy Severe ITCHY,RASH, Verified 06/08/24 22:01 Antibiotics) rash [Sulfa (Sulfonamides)] trimethoprim [From Bactrim] Allergy Severe HIVES Verified 06/08/24 22:01 Review of Systems Review of Systems: No chest pain or focal weakness Yes all other systems are reviewed and are negative [facility] Past Medical History Attestation statement: The following information was validated with the patient. Medical History Bleeding hemorrhoids Essential hypertension PVC (premature ventricular contraction) PAC (premature atrial contraction) SVT (supraventricular tachycardia) Chronic constipation High blood pressure Vertigo Dementia Arthritis Anxiety Surgical History No pertinent past surgical history Social History Social History Alcohol intake: never Patient Tobacco Use Status: Never used Tobacco Smoked in Last 30 Days: No Use of substances other than those prescribed or required for medical reasons: No Advance Directives Date on File: 01/28/24 Do you have a plan to hurt others: No Plan Physical Exam Vital Signs: Vital Signs: Last Vital Signs Temp 99.2 F 06/08/24 21:58 Pulse 88 06/08/24 21:58 Resp 18 06/08/24 21:58 BP 161/78 H 06/08/24 21:58 Pulse Ox 98 06/08/24 21:58 O2 Del Method Room Air 06/08/24 21:58 BMI result Body Mass Index 33.5 Appearance: Alert. Oriented X3. No acute distress. Eyes: Pupils equal, round and reactive to light. ENT: Pharynx normal. Neck: Normal inspection. Neck supple. No lymph nodes noted. No crepitus CVS: Normal heart rate and rhythm. Pulses normal. Normal S1 and S2 Respiratory: No respiratory distress. Breath sounds normal. No Wheezing. No rales Abdomen: Soft and nontender. No rigidity. No distention. good BS x4 Skin: Skin warm and dry. Normal skin color. Normal skin turgor. Extremities: No lower extremity edema. Neurovascular intact to all extremities. No Lacerations. No Rash Neuro: Oriented X 3. No motor deficit. No sensory deficit. Moving all extermities. No slurred speech Medical Decision Making Medical Decision Making MDM Narrative: Patient in no acute distress. Has a history of anxiety feels the same. Patient's blood pressure in the emergency department was 161/78. Explained to patient the need to take her blood pressure medication closely follow up on an outpatient basis take her anxiety meds when they arrived tomorrow patient states understanding. Differential Diagnosis Differential Diagnoses: The differential diagnosis associated with the presentation includes Anxiety, hypertension Admission/Observation Consideration of admission/observation: Escalation of care including admission/observation considered Social Determinants Patient?s care significantly limited by Social Determinants of Health including: Problems related to primary support group Discharge Plan Discharge Clinical Impression: Generalized anxiety disorder with panic attacks Patient Disposition: Home, Self-Care Instructions: Generalized Anxiety Disorder (ED) Prescriptions: No Action metoprolol succinate 50 mg tablet extended release 24 hr 50 mg PO DAILY Qty: 90 2RF lisinopril 40 mg tablet 40 mg PO QPM Qty: 90 0RF Rx Instructions: Please call and schedule cardiology appt mirtazapine 45 mg Tablet 45 mg PO BEDTIME omeprazole 20 mg Tablet,Delayed Release (Dr/Ec) 20 mg PO DAILY fluticasone propionate [Flonase Allergy Relief] 50 mcg/actuation spray,suspension 2 spray intranasal DAILY Qty: 16 0RF Rx Instructions: administer into each nostril trazodone 50 mg tablet 50 mg PO BEDTIME ferrous sulfate [FeroSul] 325 mg (65 mg iron) tablet 325 mg PO DAILY diphenhydramine HCl [Lou-Dryl] 25 mg tablet 25 mg PO BEDTIME PRN (Reason: itch) bisacodyl 5 mg tablet,delayed release (DR/EC) 5 mg PO DAILY PRN (Reason: constipation) rosuvastatin 20 mg tablet 20 mg PO QPM cholecalciferol (vitamin D3) 25 mcg (1,000 unit) tablet 25 mcg PO BID aspirin 81 mg tablet,delayed release (DR/EC) 81 mg PO QAM alprazolam 0.5 mg tablet 0.5 mg PO QID PRN (Reason: Anxiety) multivitamin Tablet 1 tab PO QAM sertraline 100 mg tablet 100 mg PO DAILY melatonin 10 mg tablet extended release 10 mg PO BEDTIME PRN (Reason: Insomnia) cefuroxime axetil 250 mg tablet 250 mg PO BID 7 Days Qty: 14 0RF ondansetron 4 mg tablet,disintegrating 4 mg PO Q6H PRN (Reason: nausea and vomiting) Qty: 10 0RF hydroxyzine HCl 25 mg tablet 25 mg PO TID PRN (Reason: itching) Qty: 10 0RF amlodipine 10 mg tablet 10 mg PO DAILY tamsulosin 0.4 mg capsule 0.4 mg PO BEDTIME 30 Days Qty: 30 3RF Referrals: [facility] [Physician] - 06/10/24 Print Language: [place]ian
[2024-06-08 22:52] VITALS: BP 161/78; PULSE 88; RESP 18; TEMP 37.3; O2SAT 98
== END 2024-06-08 23:20 | disposition home or self-care (01) ==
LOC: HO.ED 23:00
PROVIDERS: Emergency Provider Emergency Medicine Emergency Medical Services
DX: F41.1 Generalized anxiety disorder (principal); F41.0 Panic disorder [episodic paroxysmal anxiety]; F43.0 Acute stress reaction
CPT/HCPCS: 99282; 99284

== ENCOUNTER 2024-06-15 07:56 | Outpatient (REF) | payer OTHER, SELFPAY ==
[2024-06-15 11:43] LABS: Anion Gap 17 (12-20); Blood Urea Nitrogen 21 mg/dL (9-16); Calcium 9.7 mg/dL (8.4-10.2); Carbon Dioxide 25 mmol/L (22-29); Chloride 96 mmol/L (96-108); Estimated Glomerular Filt Rate 52; Glucose Random 99 mg/dL (60-115); Potassium 4.1 mmol/L (3.3-5.1); Sodium 134 mmol/L (135-145)
== END 2024-06-15 07:57 | disposition home or self-care (01) ==
LOC: HO.HHCL 07:56
PROVIDERS: Visit Provider Internal Medicine Geriatric Medicine
DX: E87.1 Hypo-osmolality and hyponatremia (principal); I10 Essential (primary) hypertension
CPT/HCPCS: 36415; 80048

== ENCOUNTER 2024-06-23 20:20 | Emergency (ER) | payer OTHER, SELFPAY ==
[2024-06-23 20:32] VITALS: BP 131/67; BP 152/82; PULSE 72; PULSE 76; RESP 18; TEMP 36.6; O2SAT 98; O2SAT 99; BMI 28.0
[2024-06-23 20:39] VITALS: BP 131/67; PULSE 76; RESP 18; TEMP 36.6; O2SAT 98
--- NOTE | 2024-06-23 21:36 | ED_ITS ---
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 ? Patient reports that around 7:00 p.m. today, about 2 hours prior to arrival she began experiencing numbness in both of her feet. Per triage note, the patient was complaining of numbness in her arms and legs. The patient denies this to me and states ?it is only in my feet. ? She denies any pain. She states that yesterday she had a headache but was given Tylenol and her headache has resolved She denies any back pain Denies any lower extremity weakness No other complaints or concerns at this time Related Data Home Medications ?Medication ?Instructions ?Recorded ?Confirmed mirtazapine 45 mg tablet 45 mg PO BEDTIME 08/09/20 02/09/24 omeprazole 20 mg tablet,delayed 20 mg PO DAILY 08/09/20 02/09/24 release alprazolam 0.5 mg tablet 0.5 mg PO QID PRN Anxiety 01/28/24 02/09/24 aspirin 81 mg tablet,delayed 81 mg PO QAM 01/28/24 02/09/24 release bisacodyl 5 mg tablet,delayed 5 mg PO DAILY PRN constipation 01/28/24 02/09/24 release cholecalciferol (vitamin D3) 25 25 mcg PO BID 01/28/24 02/09/24 mcg (1,000 unit) tablet diphenhydramine HCl 25 mg tablet 25 mg PO BEDTIME PRN itch 01/28/24 02/09/24 (Lou-Dryl) ferrous sulfate 325 mg (65 mg 325 mg PO DAILY 01/28/24 02/09/24 iron) tablet (FeroSul) melatonin 10 mg tablet,extended 10 mg PO BEDTIME PRN Insomnia 01/28/24 02/09/24 release multivitamin 1 tab PO QAM 01/28/24 02/09/24 rosuvastatin 20 mg tablet 20 mg PO QPM 01/28/24 02/09/24 sertraline 100 mg tablet 100 mg PO DAILY 01/28/24 02/09/24 trazodone 50 mg tablet 50 mg PO BEDTIME 01/28/24 02/09/24 amlodipine 10 mg tablet 10 mg PO DAILY 02/09/24 02/09/24 Previous Rx's ?Medication ?Instructions ?Recorded metoprolol succinate 50 mg 50 mg PO DAILY #90 tabs 09/28/20 tablet,extended release 24 hr lisinopril 40 mg tablet 40 mg PO QPM #90 tabs 05/22/23 fluticasone propionate 50 2 spray intranasal DAILY #16 grams 09/16/23 mcg/actuation nasal spray,suspension (Flonase Allergy Relief) cefuroxime axetil 250 mg tablet 250 mg PO BID 7 days #14 tabs 02/02/24 tamsulosin 0.4 mg capsule 0.4 mg PO BEDTIME 30 days #30 caps 02/09/24 hydroxyzine HCl 25 mg tablet 25 mg PO TID PRN itching #10 tabs 04/28/24 ondansetron 4 mg disintegrating 4 mg PO Q6H PRN nausea and 04/28/24 tablet vomiting #10 tabs Allergies Allergy/AdvReac Type Severity Reaction Status Date / Time penicillin G [Penicillin G] Allergy Severe ITCHY/RASH Verified 06/23/24 20:35 Sulfa (Sulfonamide Allergy Severe ITCHY,RASH, Verified 06/23/24 20:35 Antibiotics) rash [Sulfa (Sulfonamides)] trimethoprim [From Bactrim] Allergy Severe HIVES Verified 06/23/24 20:35 Review of Systems 2 Constitutional: Constitutional: Denies body ache(s), Denies chills, Denies fever(s) and Denies headache(s) Eyes: Eyes: Denies blurry vision ENT: Denies dysphagia, Denies vertigo, Denies dizziness and Denies headache(s) Cardiovascular: Cardiovascular: Denies chest pain and Denies dyspnea Respiratory: Respiratory: Denies cough and Denies dyspnea Gastrointestinal: Gastrointestinal: Denies abdominal pain, Denies dysphagia and Denies vomiting Genitourinary: Genitourinary: Denies dysuria Musculoskeletal: Musculoskeletal: Denies back pain, Denies arthralgias, Denies joint swelling, Denies limited range of motion, Reports numbness and Denies tingling Integumentary/Breasts: Skin/Breast: Denies rash Neurologic: Denies Abnormal speech present, Denies vertigo, Denies dizziness, Denies headache(s), Denies focal weakness, Reports numbness and Denies tingling Psychiatric: Psychiatric: Denies anxiety PMFSH Past Medical History Medical History Bleeding hemorrhoids Essential hypertension PVC (premature ventricular contraction) PAC (premature atrial contraction) SVT (supraventricular tachycardia) Chronic constipation High blood pressure Vertigo Dementia Arthritis Anxiety Surgical History No pertinent past surgical history Social History Social History Alcohol intake: never Patient Tobacco Use Status: Never used Tobacco Smoked in Last 30 Days: No Use of substances other than those prescribed or required for medical reasons: No Advance Directives: Yes Advance Directives on File: Yes Advance Directives Date on File: 01/28/24 Do you have a plan to hurt others: No Plan Physical Exam ED Vital Signs: Vital Signs - 24 hr 06/23/24 20:32 06/23/24 20:39 Temperature 97.9 F 97.9 F Pulse Rate 76 76 Respiratory Rate 18 18 Blood Pressure 131/67 131/67 Pulse Oximetry 98 98 Oxygen Delivery Method Room Air Room Air Oxygen Flow Rate 98 BMI result Body Mass Index 28.0 Const General: healthy appearing, comfortable, no acute distress, alert and awake Nutritional Appearance: well nourished Orientation/consciousness: patient oriented x3 HENMT Head: Yes normocephalic and Yes atraumatic Throat: Yes posterior oropharynx normal Eyes Eyelids: Yes eyelids normal Conjunctivae: conjunctivae normal Sclerae: sclerae normal Corneas: corneas normal Pupils: Equal, round and reactive pupils present EOM: EOMs intact bilaterally Neck Neck: Yes full ROM Resp Effort & Inspection: normal respiratory effort, able to speak in complete sentences and not labored Cardio Rate: regular rate Rhythm: regular rhythm GI Inspection: No distended Palpation (GI): Soft to palpation, not firm, nontender, no guarding and not rigid Skin General skin exam: elasticity normal Neuro Other: Gross sensation is intact to all 4 extremities. However, on palpation of the feet bilaterally, the patient states ?I can only feel it a little bit. ? General: patient oriented x3 Cranial nerves: Yes CN's II-XII intact bilaterally, Yes Equal, round and reactive pupils present and Yes Bilaterally intact EOM present Cognition (Neuro): normal cognition Speech: No Abnormal speech present Extrem Other: Moving all extremities well without any obvious deformities Course Reevaluation(s) Reevaluation #1: The patient is now requesting discharge. She is ambulating around the department, her workup was largely unremarkable, she was a chronic mild hyponatremia consistent with a baseline. She remains neuro intact. No further workup indicated, the patient may follow up with her PCP Time: 22:31 Medical Decision Making Medical Decision Making MDM Narrative: 78-year-old female with past medical history as documented above, well known to this emergency department for presentation and anxiety presents for evaluation of numbness in both feet. She has an NIH stroke score of 0 currently. She is quite well appearing. Gross sensation is intact to both feet despite the patient reporting that her sensation is dulled. Plan for basic labs and assessment of electrolytes. The patient has no back pain to suggest spinal cord etiology Differential Diagnosis Differential Diagnoses: The differential diagnosis associated with the presentation includes Neuropathy Numbness Anxiety CVA less likely Lab Data 06/23/24 21:46 06/23/24 21:46 Labs: Lab Results 06/23/24 Range/Units 21:46 WBC 7.6 (4.8-10.8) X10*3/uL RBC 4.20 (4.20-5.50) X10*6/uL Hgb 12.0 (12.0-16.0) g/dl Hct 35.2 L (37.0-47.0) % MCV 83.8 (80.0-98.0) fL MCH 28.6 (27.0-33.0) pg MCHC 34.1 (31.0-35.0) g/dl RDW 13.6 (11.0-16.0) % Plt Count 270 D (160-400) X10*3/uL MPV 8.1 L (9.4-12.3) fL Immature Gran % (Auto) 0.7 H (0.0-0.4) % Neut % (Auto) 68.4 (45-73) % Lymph % (Auto) 20.6 (20-40) % [place] % (Auto) 8.7 (2-11) % Eos % (Auto) 0.8 (0-4) % Baso % (Auto) 0.8 (0-2) % Lymph # (Auto) 1.6 (1.2-4.9) X10*3/uL [place] # (Auto) 0.7 (0.1-1.2) X10*3/uL Eos # (Auto) 0.1 (0.0-0.4) X10*3/uL Baso # (Auto) 0.1 (0.0-0.2) X10*3/uL Abs Immat Gran (auto) 0.05 H (0.00-0.03) X10*3/uL Absolute Neuts (auto) 5.2 (2.0-8.3) x10*3/uL Absolute Nucleated RBC 0.000 (0.0-0.012) X10*3/uL Nucleated RBC % (auto) 0.0 (0.0-0.2) /100WBC Sodium 133 L (135-145) mmol/L Potassium 4.5 (3.3-5.1) mmol/L Chloride 97 (96-108) mmol/L Carbon Dioxide 28 (22-29) mmol/L Anion Gap 13 (12-20) BUN 18 H (9-16) mg/dL Creatinine 0.88 (0.5-1.4) mg/dL Estim Creat Clear Calc 57.7 Estimated GFR > 60 Random Glucose 112 (60-115) mg/dL Calcium 9.0 D (8.4-10.2) mg/dL Phosphorus 3.8 (2.7-4.5) mg/dL Magnesium 2.0 (1.6-2.6) mg/dL Total Bilirubin 0.3 (0.0-1.0) mg/dL AST 20 (5-31) U/L ALT 15 (0-31) U/L Alkaline Phosphatase 64 (39-117) U/L Total Protein 8.0 (6.5-8.0) g/dL Albumin 4.2 (3.5-5.0) g/dL Lipase 23 (8-78) U/L Discharge Plan Discharge Clinical Impression: Numbness and tingling of both feet, Acute hyponatremia Patient Disposition: Home, Self-Care Instructions: Paresthesia (ED), Hyponatremia (ED) Additional Instructions: Your workup was reassuring. Your sodium was just below normal which is usual for you Take all your medications as prescribed and follow-up with your primary doctor Prescriptions: No Action metoprolol succinate 50 mg tablet extended release 24 hr 50 mg PO DAILY Qty: 90 2RF lisinopril 40 mg tablet 40 mg PO QPM Qty: 90 0RF Rx Instructions: Please call and schedule cardiology appt mirtazapine 45 mg Tablet 45 mg PO BEDTIME omeprazole 20 mg Tablet,Delayed Release (Dr/Ec) 20 mg PO DAILY fluticasone propionate [Flonase Allergy Relief] 50 mcg/actuation spray,suspension 2 spray intranasal DAILY Qty: 16 0RF Rx Instructions: administer into each nostril trazodone 50 mg tablet 50 mg PO BEDTIME ferrous sulfate [FeroSul] 325 mg (65 mg iron) tablet 325 mg PO DAILY diphenhydramine HCl [Lou-Dryl] 25 mg tablet 25 mg PO BEDTIME PRN (Reason: itch) bisacodyl 5 mg tablet,delayed release (DR/EC) 5 mg PO DAILY PRN (Reason: constipation) rosuvastatin 20 mg tablet 20 mg PO QPM cholecalciferol (vitamin D3) 25 mcg (1,000 unit) tablet 25 mcg PO BID aspirin 81 mg tablet,delayed release (DR/EC) 81 mg PO QAM alprazolam 0.5 mg tablet 0.5 mg PO QID PRN (Reason: Anxiety) multivitamin Tablet 1 tab PO QAM sertraline 100 mg tablet 100 mg PO DAILY melatonin 10 mg tablet extended release 10 mg PO BEDTIME PRN (Reason: Insomnia) cefuroxime axetil 250 mg tablet 250 mg PO BID 7 Days Qty: 14 0RF ondansetron 4 mg tablet,disintegrating 4 mg PO Q6H PRN (Reason: nausea and vomiting) Qty: 10 0RF hydroxyzine HCl 25 mg tablet 25 mg PO TID PRN (Reason: itching) Qty: 10 0RF amlodipine 10 mg tablet 10 mg PO DAILY tamsulosin 0.4 mg capsule 0.4 mg PO BEDTIME 30 Days Qty: 30 3RF Print Language: Afghan
[2024-06-23 21:51] LABS: MANUAL DIFF FLAG NO
[2024-06-23 21:53] LABS: Basophils Absolute Auto 0.1 X10*3/uL (0.0-0.2); Basophils Percent Auto 0.8 % (0-2); Eosinophils Absolute Auto 0.1 X10*3/uL (0.0-0.4); Eosinophils Percent Auto 0.8 % (0-4); Hematocrit 35.2 % (37.0-47.0); Imm Gran Abs Auto 0.05 X10*3/uL (0.00-0.03); Imm Gran Pct Auto 0.7 % (0.0-0.4); Lymphocytes Absolute Auto 1.6 X10*3/uL (1.2-4.9); Lymphocytes Percent Auto 20.6 % (20-40); Mean Corpuscular HGB Conc 34.1 g/dl (31.0-35.0); Mean Corpuscular Hemoglobin 28.6 pg (27.0-33.0); Mean Corpuscular Volume 83.8 fL (80.0-98.0); Mean Platelet Volume 8.1 fL (9.4-12.3); Monocytes Absolute Auto 0.7 X10*3/uL (0.1-1.2); Monocytes Percent Auto 8.7 % (2-11); Neutrophils Absolute Auto 5.2 x10*3/uL (2.0-8.3); Neutrophils Percent Auto 68.4 % (45-73); Platelet Count 270 X10*3/uL (160-400); Red Cell Distribution Width 13.6 % (11.0-16.0); White Blood Count 7.6 X10*3/uL (4.8-10.8)
[2024-06-23 22:00] VITALS: BP 159/76; PULSE 75; RESP 16; TEMP 37.1; O2SAT 98
[2024-06-23 22:11] LABS: Alanine Aminotransferase 15 U/L (0-31); Albumin Level 4.2 g/dL (3.5-5.0); Alkaline Phosphatase 64 U/L (39-117); Anion Gap 13 (12-20); Aspartate Amino Transferase 20 U/L (5-31); Bilirubin Total 0.3 mg/dL (0.0-1.0); Blood Urea Nitrogen 18 mg/dL (9-16); Carbon Dioxide 28 mmol/L (22-29); Chloride 97 mmol/L (96-108); Creatinine Clr Calc Pharmacy 57.7; Estimated Glomerular Filt Rate > 60; Glucose Random 112 mg/dL (60-115); Lipase 23 U/L (8-78); Phosphorus 3.8 mg/dL (2.7-4.5); Potassium 4.5 mmol/L (3.3-5.1); Sodium 133 mmol/L (135-145)
--- NOTE | 2024-06-23 22:31 | PC.NURSE ---
patient ambulated to and from the bathroom independently without difficulty. MD made aware of patients ambulation trial. Patient requesting to go home.
[2024-06-23 22:39] VITALS: BP 159/76; PULSE 73; RESP 16; TEMP 37.1; O2SAT 98
== END 2024-06-23 22:41 | disposition home or self-care (01) ==
PROVIDERS: Physician Assistant; Emergency Provider Internal Medicine
DX: R20.0 Anesthesia of skin (principal); E87.1 Hypo-osmolality and hyponatremia; F03.90 Unspecified dementia, unspecified severity, without behavioral disturbance, psychotic disturbance, mood disturbance, and anxiety; F41.9 Anxiety disorder, unspecified; I10 Essential (primary) hypertension; R51.9 Headache, unspecified; Z79.899 Other long term (current) drug therapy
CPT/HCPCS: 36415; 80053; 83690; 83735; 84100; 85025; 99283; 99284

== ENCOUNTER 2024-06-28 09:12 | Outpatient (REF) | payer OTHER, SELFPAY ==
[2024-06-28 12:13] LABS: Anion Gap 12 (12-20); Blood Urea Nitrogen 20 mg/dL (9-16); Calcium 9.9 mg/dL (8.4-10.2); Carbon Dioxide 30 mmol/L (22-29); Chloride 95 mmol/L (96-108); Estimated Glomerular Filt Rate 47; Glucose Fasting 105 mg/dL (60-99); Potassium 4.8 mmol/L (3.3-5.1); Sodium 132 mmol/L (135-145)
== END 2024-06-28 09:13 | disposition home or self-care (01) ==
LOC: HO.HHCL 09:12
PROVIDERS: Visit Provider Internal Medicine
DX: E87.8 Other disorders of electrolyte and fluid balance, not elsewhere classified (principal)
CPT/HCPCS: 36415; 80048

== ENCOUNTER 2024-07-01 09:14 | Outpatient (REF) | payer OTHER, SELFPAY ==
[2024-07-01 12:33] LABS: Osmolality, Serum 293 mosm/kg (281-305)
== END 2024-07-01 09:15 | disposition home or self-care (01) ==
LOC: HO.HHCL 09:14
PROVIDERS: Visit Provider Internal Medicine
DX: E87.8 Other disorders of electrolyte and fluid balance, not elsewhere classified (principal)
CPT/HCPCS: 36415; 83930; 84300

== ENCOUNTER 2024-07-06 23:43 | Emergency (ER) | payer OTHER, SELFPAY ==
[2024-07-06 23:52] VITALS: BP 151/81; BP 160/84; PULSE 112; PULSE 120; RESP 20; TEMP 37.4; O2SAT 100; O2SAT 97; BMI 28.0
--- NOTE | 2024-07-07 00:15 | ED_ITS ---
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 She comes in with c/o wanting her Na checked and has anxiety. She wants something to sleep. She has no other complaints. She notes no one has called her in a while to get her Na checked. MD complaint: wants Na checked - anxiety and tingling in feet Onset (ago): month(s) Location: mouth, left, right and lower extremity Radiation: non-radiation Severity: mild Quality: other (tingling) Relieving factors: none Exacerbating factors: none Associated symptoms: denies other symptoms Treatments prior to arrival: none Related Data Home Medications ?Medication ?Instructions ?Recorded ?Confirmed mirtazapine 45 mg tablet 45 mg PO BEDTIME 08/09/20 02/09/24 omeprazole 20 mg tablet,delayed 20 mg PO DAILY 08/09/20 02/09/24 release alprazolam 0.5 mg tablet 0.5 mg PO QID PRN Anxiety 01/28/24 02/09/24 aspirin 81 mg tablet,delayed 81 mg PO QAM 01/28/24 02/09/24 release bisacodyl 5 mg tablet,delayed 5 mg PO DAILY PRN constipation 01/28/24 02/09/24 release cholecalciferol (vitamin D3) 25 25 mcg PO BID 01/28/24 02/09/24 mcg (1,000 unit) tablet diphenhydramine HCl 25 mg tablet 25 mg PO BEDTIME PRN itch 01/28/24 02/09/24 (Lou-Dryl) ferrous sulfate 325 mg (65 mg 325 mg PO DAILY 01/28/24 02/09/24 iron) tablet (FeroSul) melatonin 10 mg tablet,extended 10 mg PO BEDTIME PRN Insomnia 01/28/24 02/09/24 release multivitamin 1 tab PO QAM 01/28/24 02/09/24 rosuvastatin 20 mg tablet 20 mg PO QPM 01/28/24 02/09/24 sertraline 100 mg tablet 100 mg PO DAILY 01/28/24 02/09/24 trazodone 50 mg tablet 50 mg PO BEDTIME 01/28/24 02/09/24 amlodipine 10 mg tablet 10 mg PO DAILY 02/09/24 02/09/24 Previous Rx's ?Medication ?Instructions ?Recorded metoprolol succinate 50 mg 50 mg PO DAILY #90 tabs 09/28/20 tablet,extended release 24 hr lisinopril 40 mg tablet 40 mg PO QPM #90 tabs 05/22/23 fluticasone propionate 50 2 spray intranasal DAILY #16 grams 09/16/23 mcg/actuation nasal spray,suspension (Flonase Allergy Relief) cefuroxime axetil 250 mg tablet 250 mg PO BID 7 days #14 tabs 02/02/24 tamsulosin 0.4 mg capsule 0.4 mg PO BEDTIME 30 days #30 caps 02/09/24 hydroxyzine HCl 25 mg tablet 25 mg PO TID PRN itching #10 tabs 04/28/24 ondansetron 4 mg disintegrating 4 mg PO Q6H PRN nausea and 04/28/24 tablet vomiting #10 tabs Allergies Allergy/AdvReac Type Severity Reaction Status Date / Time penicillin G [Penicillin G] Allergy Severe ITCHY/RASH Verified 07/06/24 23:54 Sulfa (Sulfonamide Allergy Severe ITCHY,RASH, Verified 07/06/24 23:54 Antibiotics) rash [Sulfa (Sulfonamides)] trimethoprim [From Bactrim] Allergy Severe HIVES Verified 07/06/24 23:54 Review of Systems 2 Review of Systems: Constitutional : No Fever, No Chills, No Fatigue ENT/Mouth : No sore throat, No Rhinorrhea Eyes: No Eye Pain, No Swelling, No Redness Cardiovascular : No Chest Pain, No SOB, No Dyspnea on Exertion Respiratory : No Cough, No Sputum Gastrointestinal : No Nausea, No Vomiting, No Diarrhea, No abdominal Pain Genitourinary : No Dysuria, No Urinary Frequency, No Hematuria, Musculoskeletal : No joint pain, No Myalgias, No Joint Swelling Skin : No Skin Lesions, No rash Neuro : No Weakness, pos Numbness, No Dizziness, no Headache Psych : pos Anxiety/Panic, No Depression All other systems reviewed and are negative [facility] Past Medical History Attestation statement: The following information was validated with the patient. Source: old records reviewed Medical History Bleeding hemorrhoids Essential hypertension PVC (premature ventricular contraction) PAC (premature atrial contraction) SVT (supraventricular tachycardia) Chronic constipation High blood pressure Vertigo Dementia Arthritis Anxiety Surgical History No pertinent past surgical history Social History Social History Alcohol intake: never Patient Tobacco Use Status: Never used Tobacco Advance Directives Date on File: 01/28/24 Physical Exam ED Vital Signs: Vital Signs - 24 hr 07/06/24 23:52 Temperature 99.4 F Pulse Rate 120 H Respiratory Rate 20 Blood Pressure 151/81 H Pulse Oximetry 97 Oxygen Delivery Method Room Air BMI result Body Mass Index 28.0 Appearance: Alert. Oriented X3. No acute distress. Eyes: Pupils equal, round and reactive to light. ENT: Pharynx normal. Neck: Normal inspection. Neck supple. CVS: Normal heart rate and rhythm. Pulses normal. Respiratory: No respiratory distress. Breath sounds normal. Abdomen: Soft and non-tender. Skin: Skin warm and dry. Normal skin color. Extremities: No lower extremity edema. Neuro: Oriented X 3. No motor deficit. No sensory deficit. Medical Decision Making Medical Decision Making [facility] Narrative: 78 yo female with PMH of anxiety, HTN, cognitive disorder, SVT, arthritis, recurrent hyponatremia here with recurrent visit for tingling anxiety and wants her Na levels checked at this time will repeat labs and defer benzodiazepine dosing here. At this time she denies GI losses. I do not see NaCl tabs on her med list or a visit to nephrology. She may benefit from both. No other complaints at this time. Differential Diagnosis Differential Diagnoses: The differential diagnosis associated with the presentation includes hyponatremia, anxiety Admission/Observation Consideration of admission/observation: Escalation of care including admission/observation considered Na corrected with diet will defer to PCP can be DC home continues to ask for sleeping medications Lab Data [facility] Lab Attestation statement: I reviewed the patient's lab results. 07/07/24 00:21 07/07/24 00:21 Labs: Lab Results 07/07/24 Range/Units 00:21 WBC 7.4 (4.8-10.8) X10*3/uL RBC 4.19 L (4.20-5.50) X10*6/uL Hgb 12.1 (12.0-16.0) g/dl Hct 36.0 L (37.0-47.0) % MCV 85.9 (80.0-98.0) fL MCH 28.9 (27.0-33.0) pg MCHC 33.6 (31.0-35.0) g/dl RDW 14.1 (11.0-16.0) % Plt Count 270 (160-400) X10*3/uL MPV 8.0 L (9.4-12.3) fL Immature Gran % (Auto) 0.5 H (0.0-0.4) % Neut % (Auto) 65.5 (45-73) % Lymph % (Auto) 23.4 (20-40) % [place] % (Auto) 8.5 (2-11) % Eos % (Auto) 1.4 (0-4) % Baso % (Auto) 0.7 (0-2) % Lymph # (Auto) 1.7 (1.2-4.9) X10*3/uL [place] # (Auto) 0.6 (0.1-1.2) X10*3/uL Eos # (Auto) 0.1 (0.0-0.4) X10*3/uL Baso # (Auto) 0.1 (0.0-0.2) X10*3/uL Abs Immat Gran (auto) 0.04 H (0.00-0.03) X10*3/uL Absolute Neuts (auto) 4.9 (2.0-8.3) x10*3/uL Absolute Nucleated RBC 0.000 (0.0-0.012) X10*3/uL Nucleated RBC % (auto) 0.0 (0.0-0.2) /100WBC Sodium 137 (135-145) mmol/L Potassium 4.5 (3.3-5.1) mmol/L Chloride 102 (96-108) mmol/L Carbon Dioxide 26 (22-29) mmol/L Anion Gap 14 (12-20) BUN 28 H (9-16) mg/dL Creatinine 0.93 (0.5-1.4) mg/dL Estim Creat Clear Calc 54.6 Estimated GFR 58 Random Glucose 124 H (60-115) mg/dL Calcium 9.3 D (8.4-10.2) mg/dL Magnesium 2.3 (1.6-2.6) mg/dL Total Bilirubin 0.2 (0.0-1.0) mg/dL Direct Bilirubin < 0.2 (0.0-0.5) mg/dL AST 29 (5-31) U/L ALT 26 (0-31) U/L Alkaline Phosphatase 68 (39-117) U/L Total Protein 8.2 H (6.5-8.0) g/dL Albumin 4.3 (3.5-5.0) g/dL Independent Historian Clinical information obtained from an independent historian. History obtained from or confirmed by: EMS External Record Review External record reviewed: Inpatient record Prescription Management I considered prescription management with: Other Discharge Plan Discharge Clinical Impression: Generalized anxiety disorder with panic attacks Patient Disposition: Home, Self-Care Instructions: Anxiety (ED) Additional Instructions: sodium normal 137 follow up with your doctor labs reassuring today return for any worsening symptoms or concerns. Prescriptions: No Action metoprolol succinate 50 mg tablet extended release 24 hr 50 mg PO DAILY Qty: 90 2RF lisinopril 40 mg tablet 40 mg PO QPM Qty: 90 0RF Rx Instructions: Please call and schedule cardiology appt mirtazapine 45 mg Tablet 45 mg PO BEDTIME omeprazole 20 mg Tablet,Delayed Release (Dr/Ec) 20 mg PO DAILY fluticasone propionate [Flonase Allergy Relief] 50 mcg/actuation spray,suspension 2 spray intranasal DAILY Qty: 16 0RF Rx Instructions: administer into each nostril trazodone 50 mg tablet 50 mg PO BEDTIME ferrous sulfate [FeroSul] 325 mg (65 mg iron) tablet 325 mg PO DAILY diphenhydramine HCl [Lou-Dryl] 25 mg tablet 25 mg PO BEDTIME PRN (Reason: itch) bisacodyl 5 mg tablet,delayed release (DR/EC) 5 mg PO DAILY PRN (Reason: constipation) rosuvastatin 20 mg tablet 20 mg PO QPM cholecalciferol (vitamin D3) 25 mcg (1,000 unit) tablet 25 mcg PO BID aspirin 81 mg tablet,delayed release (DR/EC) 81 mg PO QAM alprazolam 0.5 mg tablet 0.5 mg PO QID PRN (Reason: Anxiety) multivitamin Tablet 1 tab PO QAM sertraline 100 mg tablet 100 mg PO DAILY melatonin 10 mg tablet extended release 10 mg PO BEDTIME PRN (Reason: Insomnia) cefuroxime axetil 250 mg tablet 250 mg PO BID 7 Days Qty: 14 0RF ondansetron 4 mg tablet,disintegrating 4 mg PO Q6H PRN (Reason: nausea and vomiting) Qty: 10 0RF hydroxyzine HCl 25 mg tablet 25 mg PO TID PRN (Reason: itching) Qty: 10 0RF amlodipine 10 mg tablet 10 mg PO DAILY tamsulosin 0.4 mg capsule 0.4 mg PO BEDTIME 30 Days Qty: 30 3RF Print Language: Moroccan
[2024-07-07 00:24] LABS: MANUAL DIFF FLAG NO
[2024-07-07 00:27] LABS: Basophils Absolute Auto 0.1 X10*3/uL (0.0-0.2); Basophils Percent Auto 0.7 % (0-2); Eosinophils Absolute Auto 0.1 X10*3/uL (0.0-0.4); Eosinophils Percent Auto 1.4 % (0-4); Hemoglobin 12.1 g/dl (12.0-16.0); Imm Gran Abs Auto 0.04 X10*3/uL (0.00-0.03); Imm Gran Pct Auto 0.5 % (0.0-0.4); Lymphocytes Absolute Auto 1.7 X10*3/uL (1.2-4.9); Lymphocytes Percent Auto 23.4 % (20-40); Mean Corpuscular HGB Conc 33.6 g/dl (31.0-35.0); Mean Corpuscular Hemoglobin 28.9 pg (27.0-33.0); Mean Corpuscular Volume 85.9 fL (80.0-98.0); Monocytes Absolute Auto 0.6 X10*3/uL (0.1-1.2); Monocytes Percent Auto 8.5 % (2-11); Neutrophils Absolute Auto 4.9 x10*3/uL (2.0-8.3); Neutrophils Percent Auto 65.5 % (45-73); Platelet Count 270 X10*3/uL (160-400); Red Blood Count 4.19 X10*6/uL (4.20-5.50); Red Cell Distribution Width 14.1 % (11.0-16.0); White Blood Count 7.4 X10*3/uL (4.8-10.8)
[2024-07-07 00:43] LABS: Alanine Aminotransferase 26 U/L (0-31); Albumin Level 4.3 g/dL (3.5-5.0); Alkaline Phosphatase 68 U/L (39-117); Anion Gap 14 (12-20); Aspartate Amino Transferase 29 U/L (5-31); Bilirubin Direct < 0.2 mg/dL (0.0-0.5); Bilirubin Total 0.2 mg/dL (0.0-1.0); Blood Urea Nitrogen 28 mg/dL (9-16); Calcium 9.3 mg/dL (8.4-10.2); Carbon Dioxide 26 mmol/L (22-29); Chloride 102 mmol/L (96-108); Creatinine Clr Calc Pharmacy 54.6; Estimated Glomerular Filt Rate 58; Glucose Random 124 mg/dL (60-115); Magnesium 2.3 mg/dL (1.6-2.6); Potassium 4.5 mmol/L (3.3-5.1); Sodium 137 mmol/L (135-145); Total Protein 8.2 g/dL (6.5-8.0)
[2024-07-07 00:48] VITALS: BP 125/83; PULSE 81; RESP 16; TEMP 37.4; O2SAT 97
[2024-07-07] MEDS: Acetaminophen 325 MG TABLET 650 MG PO (01:22)
[2024-07-07 01:23] VITALS: BP 125/83; PULSE 81; RESP 16; TEMP 37.4; O2SAT 97
== END 2024-07-07 01:24 | disposition home or self-care (01) ==
PROVIDERS: Emergency Provider Emergency Medicine; PCP Internal Medicine Geriatric Medicine
DX: F41.0 Panic disorder [episodic paroxysmal anxiety] (principal); F41.1 Generalized anxiety disorder; I10 Essential (primary) hypertension; F03.90 Unspecified dementia, unspecified severity, without behavioral disturbance, psychotic disturbance, mood disturbance, and anxiety; Z79.82 Long term (current) use of aspirin; Z79.899 Other long term (current) drug therapy; Z79.02 Long term (current) use of antithrombotics/antiplatelets
CPT/HCPCS: 36415; 80048; 80076; 83735; 85025; 99283

== ENCOUNTER 2024-07-09 14:21 | Emergency (ER) | payer OTHER, SELFPAY ==
--- NOTE | ~2024-07-09 | XR_ITS ---
EXAMINATION: XR WRIST, RIGHT CLINICAL INFORMATION: Fall, pain COMPARISON: None available. TECHNIQUE: Four views of the right wrist. FINDINGS: Alignment is anatomic. Carpal alignment is maintained. Small ossification medial to the distal ulna, appears chronic. Small ossification in between the bases of the first and second metacarpals, appears corticated, suspected to be chronic. No acute fracture is otherwise identified. Ulnar negative variance. Moderate first CMC arthritis. Arthritis in the first MCP and IP joints as well.. No erosions or abnormal soft tissue calcifications. XR/XR wrist RT 2V IMPRESSION: No radiographic evidence of discrete acute fracture.. Chronic appearing ossifications as detailed above. Arthritis present. This includes moderate first CMC arthritis. If persistent symptoms, consider follow-up imaging. Electronically signed by: Bandar Clemens MD 07/09/2024 04:09 PM EDT
--- NOTE | ~2024-07-09 | CT_ITS ---
EXAM: CT HEAD WITHOUT CONTRAST CT CERVICAL SPINE INDICATION: fall, head injury TECHNIQUE: A noncontrast CT scan was performed from the skull base to the vertex. A noncontrast CT scan of the cervical spine was performed from the base of the skull through T1 at 2.5 mm and 0.625 mm collimation. Coronal and sagittal reformats were obtained at the acquisition workstation. This CT examination was performed using dose optimization techniques as appropriate, variously including the following: * Automated exposure control * Adjustment of mA and/or kV according to patient size (this includes techniques or standardized protocols for targeted exams where dose is matched to indication/reason for exam; i.e. extremities or head) * Use of iterative reconstruction technique Dose length product is 1079 mGy-cm. COMPARISON: CT head and cervical spine 11/29/2023 FINDINGS: Head: There is no evidence of acute intracranial hemorrhage or territorial infarction. No abnormal mass effect or midline shift is seen. Chatterjee to white matter differentiation is well preserved. No extra-axial fluid collections are identified. The ventricles are normal in size. No abnormal attenuation in the brain parenchyma. No acute calvarial fracture.. Left ethmoid sinus mucosal thickening. Partial effusion in the right mastoid air cells. Findings similar to previous. Cervical Spine: The atlantooccipital and atlantoaxial articulation is maintained.. Mild anterolisthesis of C4 on C5, stable from previous. Vertebral body heights are maintained. No evidence of acute fracture. Predens space is maintained. There is atlantodens degeneration. Multilevel disc degenerative changes. Moderate-severe C5-6, moderate C6-7 disc degeneration, similar to previous. Stable chronic deformity of the posterior aspect of C7 spinous process.. Unchanged small ossification posterior to the C6 spinous process. Posterior osteophytes at C5, C6, protruding into the central canal, unchanged from previous. No prevertebral soft tissue swelling. No suspicious thyroid findings. Redemonstrated is a small calcification in the right lung apex. CT/CT cervical spine wo IV con IMPRESSION: 1. No CT evidence of acute intracranial hemorrhage or edematous territorial infarction. 2. No CT evidence of acute cervical spine fracture or malalignment. 3. Cervical spondylosis. 4. Additional findings as above. Electronically signed by: Bandar Clemens MD 07/09/2024 06:22 PM EDT RP
[2024-07-09 14:27] VITALS: BP 162/98; PULSE 98; O2SAT 98
--- NOTE | 2024-07-09 14:32 | ECG_ITS ---
Test Reason : FALL Blood Pressure : / mmHG Vent. Rate : 078 BPM Atrial Rate : 078 BPM P-R Int : 180 ms QRS Dur : 098 ms QT Int : 378 ms P-R-T Axes : 038 -26 024 degrees QTc Int : 430 ms Normal sinus rhythm with sinus arrhythmia Moderate voltage criteria for LVH, may be normal variant ( R in aVL , Maycol product ) Borderline ECG When compared with ECG of 19-JAN-2024 04:32, No significant change was found Referred By: Evita Jeff Electronically Signed By:DEANN CISNEROS
--- NOTE | 2024-07-09 14:34 | ED_ITS ---
HPI - Fall General Chief Complaint: Fall Stated Complaint: FALL IN SHOWER Time Seen by Provider: 07/09/24 14:27 Source: patient and EMS Mode of arrival: EMS Limitations: language barrier History of Present Illness HPI Narrative: Patient is an 78-year-old female who presents emergency department for evaluation. Reports that after her shower she was trying to put her pants on she felt a little bit ?woozy? and she ultimately fell landing onto her back and striking the left side of her head against the bathtub. She reports localized pain to the left parietal region and has pain and swelling to the right wrist. Denies numbness or tingling. Denies preceding headache, vision changes, chest pain, shortness of breath, numbness or tingling, confusion, weakness. Denies any pain to her back, hips/pelvis/lower extremities or left upper extremity. Related Data Home Medications ?Medication ?Instructions ?Recorded ?Confirmed mirtazapine 45 mg tablet 45 mg PO BEDTIME 08/09/20 02/09/24 omeprazole 20 mg tablet,delayed 20 mg PO DAILY 08/09/20 02/09/24 release alprazolam 0.5 mg tablet 0.5 mg PO QID PRN Anxiety 01/28/24 02/09/24 aspirin 81 mg tablet,delayed 81 mg PO QAM 01/28/24 02/09/24 release bisacodyl 5 mg tablet,delayed 5 mg PO DAILY PRN constipation 01/28/24 02/09/24 release cholecalciferol (vitamin D3) 25 25 mcg PO BID 01/28/24 02/09/24 mcg (1,000 unit) tablet diphenhydramine HCl 25 mg tablet 25 mg PO BEDTIME PRN itch 01/28/24 02/09/24 (Lou-Dryl) ferrous sulfate 325 mg (65 mg 325 mg PO DAILY 01/28/24 02/09/24 iron) tablet (FeroSul) melatonin 10 mg tablet,extended 10 mg PO BEDTIME PRN Insomnia 01/28/24 02/09/24 release multivitamin 1 tab PO QAM 01/28/24 02/09/24 rosuvastatin 20 mg tablet 20 mg PO QPM 01/28/24 02/09/24 sertraline 100 mg tablet 100 mg PO DAILY 01/28/24 02/09/24 trazodone 50 mg tablet 50 mg PO BEDTIME 01/28/24 02/09/24 amlodipine 10 mg tablet 10 mg PO DAILY 02/09/24 02/09/24 Previous Rx's ?Medication ?Instructions ?Recorded metoprolol succinate 50 mg 50 mg PO DAILY #90 tabs 09/28/20 tablet,extended release 24 hr lisinopril 40 mg tablet 40 mg PO QPM #90 tabs 05/22/23 fluticasone propionate 50 2 spray intranasal DAILY #16 grams 09/16/23 mcg/actuation nasal spray,suspension (Flonase Allergy Relief) cefuroxime axetil 250 mg tablet 250 mg PO BID 7 days #14 tabs 02/02/24 tamsulosin 0.4 mg capsule 0.4 mg PO BEDTIME 30 days #30 caps 02/09/24 hydroxyzine HCl 25 mg tablet 25 mg PO TID PRN itching #10 tabs 04/28/24 ondansetron 4 mg disintegrating 4 mg PO Q6H PRN nausea and 04/28/24 tablet vomiting #10 tabs Allergies Allergy/AdvReac Type Severity Reaction Status Date / Time penicillin G [Penicillin G] Allergy Severe ITCHY/RASH Verified 07/09/24 14:40 Sulfa (Sulfonamide Allergy Severe ITCHY,RASH, Verified 07/09/24 14:40 Antibiotics) rash [Sulfa (Sulfonamides)] trimethoprim [From Bactrim] Allergy Severe HIVES Verified 07/09/24 14:40 Review of Systems 2 Review of Systems: Yes all other systems are reviewed and are negative PMFSH Past Medical History Attestation statement: The following information was validated with the patient. Source: old records reviewed Medical History Bleeding hemorrhoids Essential hypertension PVC (premature ventricular contraction) PAC (premature atrial contraction) SVT (supraventricular tachycardia) Chronic constipation High blood pressure Vertigo Dementia Arthritis Anxiety Surgical History No pertinent past surgical history Social History Social History Alcohol intake: never Patient Tobacco Use Status: Never used Tobacco Smoked in Last 30 Days: No Advance Directives: Yes Advance Directives on File: Yes Advance Directives Date on File: 01/28/24 Physical Exam 2 Vital Signs: Vital Signs: Last Vital Signs Temp 98.4 F 07/09/24 16:16 Pulse 75 07/09/24 16:16 Resp 16 07/09/24 16:16 BP 114/64 07/09/24 16:16 Pulse Ox 97 07/09/24 16:16 O2 Del Method Room Air 07/09/24 16:16 BMI result Body Mass Index 28.0 Appearance: Alert.?Oriented to person, place and time. No acute distress.?Normal affect. Head: Normocephalic, atraumatic Eyes: Pupils equal, round and reactive to light.? EOMI. No nystagmus. ENT: Pharynx normal.?? Neck: Normal inspection.? Neck supple.??No midline cervical spine tenderness, step-offs, deformities. CVS: Heart sounds normal. Normal heart rate and rhythm.? Pulses normal.?? Respiratory: No respiratory distress.? Lung sounds clear to auscultation bilaterally?? Abdomen: Soft and non-tender. Normoactive bowel sounds. Skin: Skin warm and dry.? Normal skin color.? ?? Extremities: No lower extremity edema.? No calf ttp?localized swelling and ecchymosis to the dorsal right wrist, 2+ radial pulse. Neuro: Moves all extremities spontaneously. Sensation intact bilaterally. CN II- XII intact. No focal neuro deficits. Ambulates with normal steady gait. Course Reevaluation(s) Reevaluation #1: CBC is without leukocytosis, normocytic anemia as seen previously does not transfusion criteria, no thrombocytopenia. No electrolyte derangement. No FELY. High sensitive troponin below detectable limits. EKG revealing sinus arrhythmia, ventricular rate of 78, QTC 430, no ST elevation, no ST depression, no T-wave inversion. XR of the right wrist without evidence of acute fracture, patient placed with Azael bandage for compression due to swelling with sprain. Patient signed out to ED CARINA; Aaron RUIZ Medical Decision Making Medical Decision Making MDM Narrative: Patient is an 78-year-old female with past medical history of anxiety, hypertension, cognitive disorder, SVT, arthritis, recurrent hyponatremia who presents to the emergency department for evaluation after a fall in the bathroom with preceded lightheadedness as per HPI. Overall she appears well, no focal neurological deficits. She has no obvious deformity or hematoma or scalp laceration to the parietal region. However given her age and mechanism of injury plan to obtain CT of the head and cervical spine to exclude ICH, SDH, fracture, subluxation. She declines to wear a hard cervical spine collar, fortunately she does not have any midline cervical spine tenderness, step-offs, deformities. However, the dorsal right wrist is notably swollen ecchymotic and tender with decreased AROM. 2+ radial pulses present. Plan to obtain XR to exclude fracture. Will obtain CBC to evaluate for leukocytosis/ anemia, CMP and lipase to evaluate for abnormal electrolytes /abnormal renal function/ abnormal hepatic/biliary function, EKG and troponin to evaluate for ischemia/ACS, assess orthostatic vital signs and Urinalysis. Differential Diagnosis Differential Diagnoses: The differential diagnosis associated with the presentation includes (See narrative above) Admission/Observation Consideration of admission/observation: Escalation of care including admission/observation considered Lab Data MDM Lab Attestation statement: I reviewed the patient's lab results. 07/09/24 15:01 07/09/24 15:01 Labs: Lab Results 07/09/24 Range/Units 15:01 WBC 10.1 (4.8-10.8) X10*3/uL RBC 3.96 L (4.20-5.50) X10*6/uL Hgb 11.5 L (12.0-16.0) g/dl Hct 33.8 L (37.0-47.0) % MCV 85.4 (80.0-98.0) fL MCH 29.0 (27.0-33.0) pg MCHC 34.0 (31.0-35.0) g/dl RDW 14.0 (11.0-16.0) % Plt Count 281 (160-400) X10*3/uL MPV 8.3 L (9.4-12.3) fL Immature Gran % (Auto) 0.5 H (0.0-0.4) % Neut % (Auto) 70.9 (45-73) % Lymph % (Auto) 17.6 L (20-40) % Geary % (Auto) 9.4 (2-11) % Eos % (Auto) 0.9 (0-4) % Baso % (Auto) 0.7 (0-2) % Lymph # (Auto) 1.8 (1.2-4.9) X10*3/uL Geary # (Auto) 1.0 (0.1-1.2) X10*3/uL Eos # (Auto) 0.1 (0.0-0.4) X10*3/uL Baso # (Auto) 0.1 (0.0-0.2) X10*3/uL Abs Immat Gran (auto) 0.05 H (0.00-0.03) X10*3/uL Absolute Neuts (auto) 7.1 (2.0-8.3) x10*3/uL Absolute Nucleated RBC 0.000 (0.0-0.012) X10*3/uL Nucleated RBC % (auto) 0.0 (0.0-0.2) /100WBC PT 11.6 (11.1-13.3) SEC INR 1.0 (0.9-1.1) Sodium 136 (135-145) mmol/L Potassium 4.4 (3.3-5.1) mmol/L Chloride 102 (96-108) mmol/L Carbon Dioxide 22 (22-29) mmol/L Anion Gap 16 (12-20) BUN 25 H (9-16) mg/dL Creatinine 1.05 (0.5-1.4) mg/dL Estim Creat Clear Calc 48.4 Estimated GFR 50 Random Glucose 118 H (60-115) mg/dL Calcium 9.2 (8.4-10.2) mg/dL Total Bilirubin 0.3 (0.0-1.0) mg/dL AST 24 (5-31) U/L ALT 22 (0-31) U/L Alkaline Phosphatase 64 (39-117) U/L Troponin I High Sens < 2.7 (<3.5-17.0) ng/L Total Protein 7.8 (6.5-8.0) g/dL Albumin 4.0 (3.5-5.0) g/dL Independent Interpretation I performed an independent interpretation of an: Plain X-Ray (No acute fracture of the right wrist) Radiology Impression Discussion of test interpretation with radiology: I have reviewed the radiologist's reading. Radiologist Impression: XR/XR wrist RT 2V IMPRESSION: No radiographic evidence of discrete acute fracture.. Chronic appearing ossifications as detailed above. Arthritis present. This includes moderate first CMC arthritis. If persistent symptoms, consider follow-up imaging. Independent Historian Clinical information obtained from an independent historian. History obtained from or confirmed by: EMS External Record Review External record reviewed: Outpatient record Prescription Management I considered prescription management with: Pain Medication Discharge Plan Discharge Clinical Impression: Fall, Right wrist sprain Patient Disposition: Home, Self-Care Instructions: Fall Prevention (ED), Wrist Sprain (ED) Additional Instructions: Your workup in the ER today was reassuring. Your CT scan did not show any traumatic injuries. Follow-up with your primary doctor Return for new or worsening symptoms Prescriptions: No Action metoprolol succinate 50 mg tablet extended release 24 hr 50 mg PO DAILY Qty: 90 2RF lisinopril 40 mg tablet 40 mg PO QPM Qty: 90 0RF Rx Instructions: Please call and schedule cardiology appt mirtazapine 45 mg Tablet 45 mg PO BEDTIME omeprazole 20 mg Tablet,Delayed Release (Dr/Ec) 20 mg PO DAILY fluticasone propionate [Flonase Allergy Relief] 50 mcg/actuation spray,suspension 2 spray intranasal DAILY Qty: 16 0RF Rx Instructions: administer into each nostril trazodone 50 mg tablet 50 mg PO BEDTIME ferrous sulfate [FeroSul] 325 mg (65 mg iron) tablet 325 mg PO DAILY diphenhydramine HCl [Lou-Dryl] 25 mg tablet 25 mg PO BEDTIME PRN (Reason: itch) bisacodyl 5 mg tablet,delayed release (DR/EC) 5 mg PO DAILY PRN (Reason: constipation) rosuvastatin 20 mg tablet 20 mg PO QPM cholecalciferol (vitamin D3) 25 mcg (1,000 unit) tablet 25 mcg PO BID aspirin 81 mg tablet,delayed release (DR/EC) 81 mg PO QAM alprazolam 0.5 mg tablet 0.5 mg PO QID PRN (Reason: Anxiety) multivitamin Tablet 1 tab PO QAM sertraline 100 mg tablet 100 mg PO DAILY melatonin 10 mg tablet extended release 10 mg PO BEDTIME PRN (Reason: Insomnia) cefuroxime axetil 250 mg tablet 250 mg PO BID 7 Days Qty: 14 0RF ondansetron 4 mg tablet,disintegrating 4 mg PO Q6H PRN (Reason: nausea and vomiting) Qty: 10 0RF hydroxyzine HCl 25 mg tablet 25 mg PO TID PRN (Reason: itching) Qty: 10 0RF amlodipine 10 mg tablet 10 mg PO DAILY tamsulosin 0.4 mg capsule 0.4 mg PO BEDTIME 30 Days Qty: 30 3RF Print Language: Kiswahili
[2024-07-09 14:40] VITALS: BMI 28.0
[2024-07-09 15:07] LABS: MANUAL DIFF FLAG NO
[2024-07-09 15:11] LABS: Basophils Absolute Auto 0.1 X10*3/uL (0.0-0.2); Basophils Percent Auto 0.7 % (0-2); Eosinophils Absolute Auto 0.1 X10*3/uL (0.0-0.4); Eosinophils Percent Auto 0.9 % (0-4); Hematocrit 33.8 % (37.0-47.0); Hemoglobin 11.5 g/dl (12.0-16.0); Imm Gran Abs Auto 0.05 X10*3/uL (0.00-0.03); Imm Gran Pct Auto 0.5 % (0.0-0.4); Lymphocytes Absolute Auto 1.8 X10*3/uL (1.2-4.9); Lymphocytes Percent Auto 17.6 % (20-40); Mean Corpuscular Volume 85.4 fL (80.0-98.0); Mean Platelet Volume 8.3 fL (9.4-12.3); Monocytes Percent Auto 9.4 % (2-11); Neutrophils Absolute Auto 7.1 x10*3/uL (2.0-8.3); Neutrophils Percent Auto 70.9 % (45-73); Platelet Count 281 X10*3/uL (160-400); Red Blood Count 3.96 X10*6/uL (4.20-5.50); White Blood Count 10.1 X10*3/uL (4.8-10.8)
[2024-07-09 15:22] LABS: Prothrombin Time 11.6 SEC (11.1-13.3)
[2024-07-09 15:26] LABS: Alanine Aminotransferase 22 U/L (0-31); Alkaline Phosphatase 64 U/L (39-117); Anion Gap 16 (12-20); Aspartate Amino Transferase 24 U/L (5-31); Bilirubin Total 0.3 mg/dL (0.0-1.0); Blood Urea Nitrogen 25 mg/dL (9-16); Calcium 9.2 mg/dL (8.4-10.2); Carbon Dioxide 22 mmol/L (22-29); Chloride 102 mmol/L (96-108); Creatinine Clr Calc Pharmacy 48.4; Estimated Glomerular Filt Rate 50; Glucose Random 118 mg/dL (60-115); Potassium 4.4 mmol/L (3.3-5.1); Sodium 136 mmol/L (135-145); Total Protein 7.8 g/dL (6.5-8.0)
[2024-07-09 15:33] LABS: Troponin-I High Sensitivity < 2.7 ng/L (<3.5-17.0)
[2024-07-09 16:16] VITALS: BP 114/64; PULSE 75; RESP 16; TEMP 36.9; O2SAT 97
--- NOTE | 2024-07-09 16:53 | PC.NURSE ---
Patient requesting to leave, provider aware and at bedside with software licensing analyst
== END 2024-07-09 19:07 | disposition home or self-care (01) ==
PROVIDERS: Nurse Practitioner Family; Emergency Provider Emergency Medicine; PCP Internal Medicine Geriatric Medicine
DX: S63.501A Unspecified sprain of right wrist, initial encounter (principal); W18.39XA Other fall on same level, initial encounter; I10 Essential (primary) hypertension; I49.3 Ventricular premature depolarization; I49.1 Atrial premature depolarization; Y93.E8 Activity, other personal hygiene; Y92.031 Bathroom in apartment as the place of occurrence of the external cause; Y99.9 Unspecified external cause status; F03.90 Unspecified dementia, unspecified severity, without behavioral disturbance, psychotic disturbance, mood disturbance, and anxiety
CPT/HCPCS: 36415; 70450; 72125; 73100; 80053; 84484; 85025; 85610; 93005; 99284

== ENCOUNTER 2024-07-20 05:36 | Emergency (ER) | payer OTHER, SELFPAY ==
[2024-07-20 05:46] VITALS: BP 159/80; PULSE 90; O2SAT 98
[2024-07-20 05:51] VITALS: BMI 30.1
[2024-07-20 05:54] VITALS: BP 134/89; PULSE 102; RESP 16; TEMP 37.7; O2SAT 96
--- NOTE | 2024-07-20 06:02 | PC.NURSE ---
pt is happy her BP is normal and she does not have a fever. she would like to go home now
--- NOTE | 2024-07-20 06:03 | ED.HA ---
HPI - Headache General Chief Complaint: Headache Stated Complaint: headache/ sore throat Time Seen by Provider: 07/20/24 06:03 Source: patient Mode of arrival: ambulatory Limitations: no limitations History of Present Illness ED Provider: esme DUMONT Narrative: Patient history of anxiety been here multiple times this time complaining of headache and sore throat has multiple COVID testing done at PCP office which were negative no fever no chills no cough no shortness a breath Related Data Home Medications ?Medication ?Instructions ?Recorded ?Confirmed mirtazapine 45 mg tablet 45 mg PO BEDTIME 08/09/20 02/09/24 omeprazole 20 mg tablet,delayed 20 mg PO DAILY 08/09/20 02/09/24 release alprazolam 0.5 mg tablet 0.5 mg PO QID PRN Anxiety 01/28/24 02/09/24 aspirin 81 mg tablet,delayed 81 mg PO QAM 01/28/24 02/09/24 release bisacodyl 5 mg tablet,delayed 5 mg PO DAILY PRN constipation 01/28/24 02/09/24 release cholecalciferol (vitamin D3) 25 25 mcg PO BID 01/28/24 02/09/24 mcg (1,000 unit) tablet diphenhydramine HCl 25 mg tablet 25 mg PO BEDTIME PRN itch 01/28/24 02/09/24 (Lou-Dryl) ferrous sulfate 325 mg (65 mg 325 mg PO DAILY 01/28/24 02/09/24 iron) tablet (FeroSul) melatonin 10 mg tablet,extended 10 mg PO BEDTIME PRN Insomnia 01/28/24 02/09/24 release multivitamin 1 tab PO QAM 01/28/24 02/09/24 rosuvastatin 20 mg tablet 20 mg PO QPM 01/28/24 02/09/24 sertraline 100 mg tablet 100 mg PO DAILY 01/28/24 02/09/24 trazodone 50 mg tablet 50 mg PO BEDTIME 01/28/24 02/09/24 amlodipine 10 mg tablet 10 mg PO DAILY 02/09/24 02/09/24 Previous Rx's ?Medication ?Instructions ?Recorded metoprolol succinate 50 mg 50 mg PO DAILY #90 tabs 09/28/20 tablet,extended release 24 hr lisinopril 40 mg tablet 40 mg PO QPM #90 tabs 05/22/23 fluticasone propionate 50 2 spray intranasal DAILY #16 grams 09/16/23 mcg/actuation nasal spray,suspension (Flonase Allergy Relief) cefuroxime axetil 250 mg tablet 250 mg PO BID 7 days #14 tabs 02/02/24 tamsulosin 0.4 mg capsule 0.4 mg PO BEDTIME 30 days #30 caps 02/09/24 hydroxyzine HCl 25 mg tablet 25 mg PO TID PRN itching #10 tabs 04/28/24 ondansetron 4 mg disintegrating 4 mg PO Q6H PRN nausea and 04/28/24 tablet vomiting #10 tabs Allergies Allergy/AdvReac Type Severity Reaction Status Date / Time penicillin G [Penicillin G] Allergy Severe ITCHY/RASH Verified 07/20/24 05:52 Sulfa (Sulfonamide Allergy Severe ITCHY,RASH, Verified 07/20/24 05:52 Antibiotics) rash [Sulfa (Sulfonamides)] trimethoprim [From Bactrim] Allergy Severe HIVES Verified 07/20/24 05:52 Review of Systems Review of Systems: Yes all other systems are reviewed and are negative PMFSH Past Medical History Medical History Bleeding hemorrhoids Essential hypertension PVC (premature ventricular contraction) PAC (premature atrial contraction) SVT (supraventricular tachycardia) Chronic constipation High blood pressure Vertigo Dementia Arthritis Anxiety Surgical History No pertinent past surgical history Social History Social History Alcohol intake: never Patient Tobacco Use Status: Never used Tobacco Advance Directives: Yes Advance Directives on File: Yes Advance Directives Date on File: 01/28/24 Physical Exam Vital Signs: Vital Signs: Last Vital Signs Temp 99.9 F 07/20/24 05:54 Pulse 102 H 07/20/24 05:54 Resp 16 07/20/24 05:54 BP 134/89 07/20/24 05:54 Pulse Ox 96 07/20/24 05:54 O2 Del Method Room Air 07/20/24 05:54 BMI result Body Mass Index 30.1 Appearance: Alert. Oriented X3. No acute distress. ENT: Pharynx normal. Oral Mucosa moist no exudates Neck: Normal inspection. Neck supple. No temporal artery tenderness CVS: Normal heart rate and rhythm. Pulses normal. Respiratory: No respiratory distress. Equal air entry bilateral, no wheezing/rales/rhonchi Skin: Skin warm and dry. Normal skin color. Normal skin turgor. Extremities: No lower extremity edema. Neuro: Oriented X 3. Medical Decision Making Medical Decision Making MDM Narrative: Patient's anxiety with nonspecific complaints looks comfortable discharge patient home advised to take Tylenol for headache and continue her anxiety medication Discharge Plan Discharge Clinical Impression: Generalized anxiety disorder with panic attacks, Headache Patient Disposition: Home, Self-Care Instructions: Anxiety (ED), General Headache (ED) Additional Instructions: Take Tylenol/Motrin for headache as needed continue anxiety medication follow with PCP Prescriptions: No Action metoprolol succinate 50 mg tablet extended release 24 hr 50 mg PO DAILY Qty: 90 2RF lisinopril 40 mg tablet 40 mg PO QPM Qty: 90 0RF Rx Instructions: Please call and schedule cardiology appt mirtazapine 45 mg Tablet 45 mg PO BEDTIME omeprazole 20 mg Tablet,Delayed Release (Dr/Ec) 20 mg PO DAILY fluticasone propionate [Flonase Allergy Relief] 50 mcg/actuation spray,suspension 2 spray intranasal DAILY Qty: 16 0RF Rx Instructions: administer into each nostril trazodone 50 mg tablet 50 mg PO BEDTIME ferrous sulfate [FeroSul] 325 mg (65 mg iron) tablet 325 mg PO DAILY diphenhydramine HCl [Lou-Dryl] 25 mg tablet 25 mg PO BEDTIME PRN (Reason: itch) bisacodyl 5 mg tablet,delayed release (DR/EC) 5 mg PO DAILY PRN (Reason: constipation) rosuvastatin 20 mg tablet 20 mg PO QPM cholecalciferol (vitamin D3) 25 mcg (1,000 unit) tablet 25 mcg PO BID aspirin 81 mg tablet,delayed release (DR/EC) 81 mg PO QAM alprazolam 0.5 mg tablet 0.5 mg PO QID PRN (Reason: Anxiety) multivitamin Tablet 1 tab PO QAM sertraline 100 mg tablet 100 mg PO DAILY melatonin 10 mg tablet extended release 10 mg PO BEDTIME PRN (Reason: Insomnia) cefuroxime axetil 250 mg tablet 250 mg PO BID 7 Days Qty: 14 0RF ondansetron 4 mg tablet,disintegrating 4 mg PO Q6H PRN (Reason: nausea and vomiting) Qty: 10 0RF hydroxyzine HCl 25 mg tablet 25 mg PO TID PRN (Reason: itching) Qty: 10 0RF amlodipine 10 mg tablet 10 mg PO DAILY tamsulosin 0.4 mg capsule 0.4 mg PO BEDTIME 30 Days Qty: 30 3RF Print Language: St Helenian
[2024-07-20 06:07] VITALS: BP 134/89; PULSE 102; RESP 16; TEMP 37.7; O2SAT 96
== END 2024-07-20 06:08 | disposition home or self-care (01) ==
PROVIDERS: Emergency Provider Internal Medicine; PCP Internal Medicine Geriatric Medicine
DX: F41.1 Generalized anxiety disorder (principal); F41.0 Panic disorder [episodic paroxysmal anxiety]; R51.9 Headache, unspecified; J02.9 Acute pharyngitis, unspecified; I10 Essential (primary) hypertension; Z79.82 Long term (current) use of aspirin; Z79.02 Long term (current) use of antithrombotics/antiplatelets; Z79.899 Other long term (current) drug therapy
CPT/HCPCS: 99282; 99283

== ENCOUNTER 2024-07-25 19:32 | Emergency (ER) | payer OTHER, SELFPAY ==
[2024-07-25 19:35] VITALS: BP 157/80; PULSE 81; O2SAT 98
--- NOTE | 2024-07-25 19:47 | PC.NURSE ---
Per registration and security staff pt was seen talking to a couple in the [place] and got in the car with them, and witnessed the car leaving. Pt with hx of asking occupants of the waiting room for rides. accounting specialist aware.
== END 2024-07-25 19:51 | disposition left against medical advice (07) ==
PROVIDERS: Emergency Provider Emergency Medicine
DX: L29.9 Pruritus, unspecified (principal); F41.9 Anxiety disorder, unspecified

== ENCOUNTER 2024-07-25 22:19 | Emergency (ER) | payer OTHER, SELFPAY ==
--- NOTE | 2024-07-25 22:26 | ED_ITS ---
HPI - General Adult General Chief complaint: Anxiety Stated complaint: anxious Time Seen by Provider: 07/25/24 22:23 Source: patient Mode of arrival: ambulatory Limitations: no limitations History of Present Illness ED Provider: Annmarie TIWARI HPI narrative: 78-year-old female history of major cognitive disorder, dementia, vertigo, hypertension, PVCs, SVT, Pac, anxiety presenting w/ anxiety and palpitations, patient reports her sister's very sick recently diagnosed with breast cancer and this is making her anxious. She reports intermittent palpitations, they come and go. Unable to identify what make sthem better. Denies chest trauma. No fevers, chills, fevers, nausea, abd pain, headache, cp, sob. Related Data Home Medications ?Medication ?Instructions ?Recorded ?Confirmed mirtazapine 45 mg tablet 45 mg PO BEDTIME 08/09/20 02/09/24 omeprazole 20 mg tablet,delayed 20 mg PO DAILY 08/09/20 02/09/24 release alprazolam 0.5 mg tablet 0.5 mg PO QID PRN Anxiety 01/28/24 02/09/24 aspirin 81 mg tablet,delayed 81 mg PO QAM 01/28/24 02/09/24 release bisacodyl 5 mg tablet,delayed 5 mg PO DAILY PRN constipation 01/28/24 02/09/24 release cholecalciferol (vitamin D3) 25 25 mcg PO BID 01/28/24 02/09/24 mcg (1,000 unit) tablet diphenhydramine HCl 25 mg tablet 25 mg PO BEDTIME PRN itch 01/28/24 02/09/24 (Lou-Dryl) ferrous sulfate 325 mg (65 mg 325 mg PO DAILY 01/28/24 02/09/24 iron) tablet (FeroSul) melatonin 10 mg tablet,extended 10 mg PO BEDTIME PRN Insomnia 01/28/24 02/09/24 release multivitamin 1 tab PO QAM 01/28/24 02/09/24 rosuvastatin 20 mg tablet 20 mg PO QPM 01/28/24 02/09/24 sertraline 100 mg tablet 100 mg PO DAILY 01/28/24 02/09/24 trazodone 50 mg tablet 50 mg PO BEDTIME 01/28/24 02/09/24 amlodipine 10 mg tablet 10 mg PO DAILY 02/09/24 02/09/24 Previous Rx's ?Medication ?Instructions ?Recorded metoprolol succinate 50 mg 50 mg PO DAILY #90 tabs 09/28/20 tablet,extended release 24 hr lisinopril 40 mg tablet 40 mg PO QPM #90 tabs 05/22/23 fluticasone propionate 50 2 spray intranasal DAILY #16 grams 09/16/23 mcg/actuation nasal spray,suspension (Flonase Allergy Relief) cefuroxime axetil 250 mg tablet 250 mg PO BID 7 days #14 tabs 02/02/24 tamsulosin 0.4 mg capsule 0.4 mg PO BEDTIME 30 days #30 caps 02/09/24 hydroxyzine HCl 25 mg tablet 25 mg PO TID PRN itching #10 tabs 04/28/24 ondansetron 4 mg disintegrating 4 mg PO Q6H PRN nausea and 04/28/24 tablet vomiting #10 tabs Allergies Allergy/AdvReac Type Severity Reaction Status Date / Time penicillin G [Penicillin G] Allergy Severe ITCHY/RASH Verified 07/25/24 22:37 Sulfa (Sulfonamide Allergy Severe ITCHY,RASH, Verified 07/25/24 22:37 Antibiotics) rash [Sulfa (Sulfonamides)] trimethoprim [From Bactrim] Allergy Severe HIVES Verified 07/25/24 22:37 Review of Systems 2 Review of Systems: Yes all other systems are reviewed and are negative [facility] Past Medical History Attestation statement: The following information was validated with the patient. Source: old records reviewed and nursing notes reviewed Medical History Bleeding hemorrhoids Essential hypertension PVC (premature ventricular contraction) PAC (premature atrial contraction) SVT (supraventricular tachycardia) Chronic constipation High blood pressure Vertigo Dementia Arthritis Anxiety Surgical History No pertinent past surgical history Social History Social History Alcohol intake: never Patient Tobacco Use Status: Never used Tobacco Advance Directives Date on File: 01/28/24 Do you have a plan to hurt others: No Plan Physical Exam ED Vital Signs: Vital Signs - 24 hr 07/25/24 22:33 Temperature 98 F Pulse Rate 81 Respiratory Rate 17 Blood Pressure 142/86 H Pulse Oximetry 99 Oxygen Delivery Method Room Air BMI result Body Mass Index 26.3 vss Appearance: Alert.? Oriented X3.? No acute distress.? Head: Normocephalic, atraumatic, no step-offs or deformities Eyes: Pupils equal, round and reactive to light.? CVS: Normal heart rate and rhythm.? Pulses normal.? Respiratory: No respiratory distress.? Breath sounds normal.? Abdomen: Soft and nontender.? Skin: Skin warm and dry.? Normal skin color.? Normal skin turgor.? Extremities: No lower extremity edema.? No calf ttp. 5/5 strength to bilateral upper and lower extremities Neuro: Oriented X 3.? No motor deficit.? No sensory deficit. CN 2-12 intact Course Reevaluation(s) Reevaluation #1: CBC with a normocytic anemia. Chemistry with chronically low sodium 133 patient tolerating p.o. will encourage p.o. hydration. BUN and creatinine slightly elevated however this is around patient's baseline no acute findings. Negative troponin EKG nonischemic. Unlikely ACS. Educated patient on diagnosis and treatment plan, answered all question, patient verbalizes understanding. At this time patient will be discharged home, advised to return with new or worsening symptoms. Educated on worrisome signs and symptoms and when to return. At this time I feel comfortable discharge home. Time: 23:48 Medical Decision Making Medical Decision Making [facility] Narrative: 1028 78 year old female presents w/ anxiety, palpitations PE- benign hx and pe concerning for anxiety versus noncardiac related chest pain. Unlikely ACS, dissection, PE. Plan- labs, ekg Differential Diagnosis Differential Diagnoses: The differential diagnosis associated with the presentation includes hx and pe concerning for anxiety versus noncardiac related chest pain. Unlikely ACS, dissection, PE. Admission/Observation Consideration of admission/observation: Escalation of care including admission/observation considered No indication Lab Data [facility] Lab Attestation statement: I reviewed the patient's lab results. 07/25/24 23:15 07/25/24 23:15 Labs: Lab Results 07/25/24 Range/Units 23:15 WBC 7.4 (4.8-10.8) X10*3/uL RBC 3.97 L (4.20-5.50) X10*6/uL Hgb 11.3 L (12.0-16.0) g/dl Hct 33.5 L (37.0-47.0) % MCV 84.4 (80.0-98.0) fL MCH 28.5 (27.0-33.0) pg MCHC 33.7 (31.0-35.0) g/dl RDW 14.0 (11.0-16.0) % Plt Count 285 (160-400) X10*3/uL MPV 8.3 L (9.4-12.3) fL Immature Gran % (Auto) 0.4 (0.0-0.4) % Neut % (Auto) 72.7 (45-73) % Lymph % (Auto) 18.5 L (20-40) % [facility] % (Auto) 7.2 (2-11) % Eos % (Auto) 0.7 (0-4) % Baso % (Auto) 0.5 (0-2) % Lymph # (Auto) 1.4 (1.2-4.9) X10*3/uL [facility] # (Auto) 0.5 (0.1-1.2) X10*3/uL Eos # (Auto) 0.1 (0.0-0.4) X10*3/uL Baso # (Auto) 0.0 (0.0-0.2) X10*3/uL Abs Immat Gran (auto) 0.03 (0.00-0.03) X10*3/uL Absolute Neuts (auto) 5.4 (2.0-8.3) x10*3/uL Absolute Nucleated RBC 0.000 (0.0-0.012) X10*3/uL Nucleated RBC % (auto) 0.0 (0.0-0.2) /100WBC PT 10.4 L (11.1-13.3) SEC INR 0.9 (0.9-1.1) Sodium 133 L (135-145) mmol/L Potassium 4.6 (3.3-5.1) mmol/L Chloride 99 (96-108) mmol/L Carbon Dioxide 26 (22-29) mmol/L Anion Gap 13 (12-20) BUN 18 H (9-16) mg/dL Creatinine 1.04 (0.5-1.4) mg/dL Estim Creat Clear Calc 47.4 Estimated GFR 51 Random Glucose 117 H (60-115) mg/dL Calcium 9.2 (8.4-10.2) mg/dL Magnesium 2.0 (1.6-2.6) mg/dL Total Bilirubin 0.3 (0.0-1.0) mg/dL AST 18 (5-31) U/L ALT 14 (0-31) U/L Alkaline Phosphatase 74 (39-117) U/L Troponin I High Sens < 2.7 (<3.5-17.0) ng/L Total Protein 7.9 (6.5-8.0) g/dL Albumin 4.2 (3.5-5.0) g/dL Independent Interpretation I performed an independent interpretation of an: EKG (Vent. Rate : 077 BPM Atrial Rate : 077 BPM P-R Int : 184 ms QRS Dur : 098 ms QT Int : 372 ms P-R-T Axes : 045 -27 022 degrees QTc Int : 420 ms Normal sinus rhythm Moderate voltage criteria for LVH, may be normal variant ( R in aVL , [place]send product ) Cannot rule out An) Radiology Impression Discussion of test interpretation with radiology: I have reviewed the radiologist's reading. External Record Review External record reviewed: Inpatient record, Office record, Outpatient record, Prior outpatient labs, Prior outpatient radiology, Primary care record and Outside ED record Chronic Conditions Patient?s care impacted by: Other (anxiety, neurocognitive disorder, vertigo, dementia, pvc, pac, anxiety ) Social Determinants Patient?s care significantly limited by Social Determinants of Health including: Low income, Problems related to primary support group, Problems related to employment and Other Social Determinant of Health Discharge Plan Discharge Clinical Impression: Generalized anxiety disorder with panic attacks, Palpitations Patient Disposition: Home, Self-Care Instructions: Anxiety (ED), Panic Attack (ED) Additional Instructions: Take your medications as prescribed. If you were prescribed antibiotics today, it is important that you take your medication to their entirety, do not skip any doses, do not finish them early. Follow-up with your primary care provider this week. Return to the emergency department with new or worsening symptoms. Such as fevers, chills, chest pain, shortness of breath, nausea, vomiting, dizziness, headache, vision changes, lethargy In case of emergency call 911 Prescriptions: No Action metoprolol succinate 50 mg tablet extended release 24 hr 50 mg PO DAILY Qty: 90 2RF lisinopril 40 mg tablet 40 mg PO QPM Qty: 90 0RF Rx Instructions: Please call and schedule cardiology appt mirtazapine 45 mg Tablet 45 mg PO BEDTIME omeprazole 20 mg Tablet,Delayed Release (Dr/Ec) 20 mg PO DAILY fluticasone propionate [Flonase Allergy Relief] 50 mcg/actuation spray,suspension 2 spray intranasal DAILY Qty: 16 0RF Rx Instructions: administer into each nostril trazodone 50 mg tablet 50 mg PO BEDTIME ferrous sulfate [FeroSul] 325 mg (65 mg iron) tablet 325 mg PO DAILY diphenhydramine HCl [Lou-Dryl] 25 mg tablet 25 mg PO BEDTIME PRN (Reason: itch) bisacodyl 5 mg tablet,delayed release (DR/EC) 5 mg PO DAILY PRN (Reason: constipation) rosuvastatin 20 mg tablet 20 mg PO QPM cholecalciferol (vitamin D3) 25 mcg (1,000 unit) tablet 25 mcg PO BID aspirin 81 mg tablet,delayed release (DR/EC) 81 mg PO QAM alprazolam 0.5 mg tablet 0.5 mg PO QID PRN (Reason: Anxiety) multivitamin Tablet 1 tab PO QAM sertraline 100 mg tablet 100 mg PO DAILY melatonin 10 mg tablet extended release 10 mg PO BEDTIME PRN (Reason: Insomnia) cefuroxime axetil 250 mg tablet 250 mg PO BID 7 Days Qty: 14 0RF ondansetron 4 mg tablet,disintegrating 4 mg PO Q6H PRN (Reason: nausea and vomiting) Qty: 10 0RF hydroxyzine HCl 25 mg tablet 25 mg PO TID PRN (Reason: itching) Qty: 10 0RF amlodipine 10 mg tablet 10 mg PO DAILY tamsulosin 0.4 mg capsule 0.4 mg PO BEDTIME 30 Days Qty: 30 3RF Referrals: [facility] [Provider Group] - 2 days Print Language: Ethiopian
--- NOTE | 2024-07-25 22:29 | ECG_ITS ---
Test Reason : [place]ANNER Blood Pressure : / mmHG Vent. Rate : 077 BPM Atrial Rate : 077 BPM P-R Int : 184 ms QRS Dur : 098 ms QT Int : 372 ms P-R-T Axes : 045 -27 022 degrees QTc Int : 420 ms Normal sinus rhythm Moderate voltage criteria for LVH, may be normal variant ( R in aVL , [place]col product ) Cannot rule out Anterior infarct , age undetermined Abnormal ECG When compared with ECG of 09-JUL-2024 14:48, No significant change was found Referred By: Sherry Anguiano Electronically Signed By:DEANN CISNEROS
[2024-07-25 22:33] VITALS: BP 142/86; PULSE 81; RESP 17; TEMP 36.6; O2SAT 99; BMI 26.3
[2024-07-25 23:20] LABS: Basophils Percent Auto 0.5 % (0-2); Eosinophils Absolute Auto 0.1 X10*3/uL (0.0-0.4); Eosinophils Percent Auto 0.7 % (0-4); Hematocrit 33.5 % (37.0-47.0); Hemoglobin 11.3 g/dl (12.0-16.0); Imm Gran Abs Auto 0.03 X10*3/uL (0.00-0.03); Imm Gran Pct Auto 0.4 % (0.0-0.4); Lymphocytes Absolute Auto 1.4 X10*3/uL (1.2-4.9); Lymphocytes Percent Auto 18.5 % (20-40); MANUAL DIFF FLAG NO; Mean Corpuscular HGB Conc 33.7 g/dl (31.0-35.0); Mean Corpuscular Hemoglobin 28.5 pg (27.0-33.0); Mean Corpuscular Volume 84.4 fL (80.0-98.0); Mean Platelet Volume 8.3 fL (9.4-12.3); Monocytes Absolute Auto 0.5 X10*3/uL (0.1-1.2); Monocytes Percent Auto 7.2 % (2-11); Neutrophils Absolute Auto 5.4 x10*3/uL (2.0-8.3); Neutrophils Percent Auto 72.7 % (45-73); Platelet Count 285 X10*3/uL (160-400); Red Blood Count 3.97 X10*6/uL (4.20-5.50); White Blood Count 7.4 X10*3/uL (4.8-10.8)
[2024-07-25 23:28] LABS: INTERNATIONAL NORM RATIO 0.9 (0.9-1.1); Prothrombin Time 10.4 SEC (11.1-13.3)
[2024-07-25 23:36] LABS: Alanine Aminotransferase 14 U/L (0-31); Albumin Level 4.2 g/dL (3.5-5.0); Alkaline Phosphatase 74 U/L (39-117); Anion Gap 13 (12-20); Aspartate Amino Transferase 18 U/L (5-31); Bilirubin Total 0.3 mg/dL (0.0-1.0); Blood Urea Nitrogen 18 mg/dL (9-16); Calcium 9.2 mg/dL (8.4-10.2); Carbon Dioxide 26 mmol/L (22-29); Chloride 99 mmol/L (96-108); Creatinine Clr Calc Pharmacy 47.4; Estimated Glomerular Filt Rate 51; Glucose Random 117 mg/dL (60-115); Potassium 4.6 mmol/L (3.3-5.1); Sodium 133 mmol/L (135-145); Total Protein 7.9 g/dL (6.5-8.0)
[2024-07-25 23:45] LABS: Troponin-I High Sensitivity < 2.7 ng/L (<3.5-17.0)
[2024-07-26 00:06] VITALS: BP 125/83; PULSE 77; RESP 16; TEMP 36.6; O2SAT 96
== END 2024-07-26 00:08 | disposition home or self-care (01) ==
LOC: HO.ED 07-26 00:02
PROVIDERS: Physician Assistant; Emergency Provider Emergency Medicine Emergency Medical Services
DX: F41.9 Anxiety disorder, unspecified (principal); F41.0 Panic disorder [episodic paroxysmal anxiety]; R00.2 Palpitations; R94.31 Abnormal electrocardiogram [ECG] [EKG]; R06.02 Shortness of breath; Z79.899 Other long term (current) drug therapy
CPT/HCPCS: 36415; 80053; 83735; 84484; 85025; 85610; 93005; 99283

== ENCOUNTER 2024-08-07 05:09 | Emergency (ER) | payer OTHER, SELFPAY ==
[2024-08-07 05:15] VITALS: BP 172/90; PULSE 108; O2SAT 98
[2024-08-07 05:18] VITALS: BP 154/81; PULSE 83; RESP 14; TEMP 37.1; O2SAT 98; BMI 37.1
[2024-08-07 05:23] VITALS: BP 154/81; PULSE 83; RESP 14; TEMP 37.1; O2SAT 98
--- NOTE | 2024-08-07 05:57 | ED.GENADULT ---
HPI - General Adult General Chief complaint: General Medical Stated complaint: HIGH BLOOD PRESSURE Time Seen by Provider: 08/07/24 05:52 Source: patient Mode of arrival: ambulatory Limitations: no limitations History of Present Illness ED Provider: Dr. Fernandez HPI narrative: Patient is an 78yo female known well to this ED for anxiety and HTN. Patient states she ran out of her metoprolol 3 days ago and this made her anxious. she felt her heart pounding and her pressure went up. Related Data Home Medications ?Medication ?Instructions ?Recorded ?Confirmed mirtazapine 45 mg tablet 45 mg PO BEDTIME 08/09/20 02/09/24 omeprazole 20 mg tablet,delayed 20 mg PO DAILY 08/09/20 02/09/24 release alprazolam 0.5 mg tablet 0.5 mg PO QID PRN Anxiety 01/28/24 02/09/24 aspirin 81 mg tablet,delayed 81 mg PO QAM 01/28/24 02/09/24 release bisacodyl 5 mg tablet,delayed 5 mg PO DAILY PRN constipation 01/28/24 02/09/24 release cholecalciferol (vitamin D3) 25 25 mcg PO BID 01/28/24 02/09/24 mcg (1,000 unit) tablet diphenhydramine HCl 25 mg tablet 25 mg PO BEDTIME PRN itch 01/28/24 02/09/24 (Lou-Dryl) ferrous sulfate 325 mg (65 mg 325 mg PO DAILY 01/28/24 02/09/24 iron) tablet (FeroSul) melatonin 10 mg tablet,extended 10 mg PO BEDTIME PRN Insomnia 01/28/24 02/09/24 release multivitamin 1 tab PO QAM 01/28/24 02/09/24 rosuvastatin 20 mg tablet 20 mg PO QPM 01/28/24 02/09/24 sertraline 100 mg tablet 100 mg PO DAILY 01/28/24 02/09/24 trazodone 50 mg tablet 50 mg PO BEDTIME 01/28/24 02/09/24 amlodipine 10 mg tablet 10 mg PO DAILY 02/09/24 02/09/24 Previous Rx's ?Medication ?Instructions ?Recorded metoprolol succinate 50 mg 50 mg PO DAILY #90 tabs 09/28/20 tablet,extended release 24 hr lisinopril 40 mg tablet 40 mg PO QPM #90 tabs 05/22/23 fluticasone propionate 50 2 spray intranasal DAILY #16 grams 09/16/23 mcg/actuation nasal spray,suspension (Flonase Allergy Relief) cefuroxime axetil 250 mg tablet 250 mg PO BID 7 days #14 tabs 02/02/24 tamsulosin 0.4 mg capsule 0.4 mg PO BEDTIME 30 days #30 caps 02/09/24 hydroxyzine HCl 25 mg tablet 25 mg PO TID PRN itching #10 tabs 04/28/24 ondansetron 4 mg disintegrating 4 mg PO Q6H PRN nausea and 04/28/24 tablet vomiting #10 tabs hydroxyzine HCl 25 mg tablet 25 mg PO TID PRN anxiety #20 tabs 08/07/24 metoprolol succinate 25 mg 25 mg PO DAILY #20 tabs 08/07/24 tablet,extended release 24 hr Allergies Allergy/AdvReac Type Severity Reaction Status Date / Time penicillin G [Penicillin G] Allergy Severe ITCHY/RASH Verified 08/07/24 05:21 Sulfa (Sulfonamide Allergy Severe ITCHY,RASH, Verified 08/07/24 05:21 Antibiotics) rash [Sulfa (Sulfonamides)] trimethoprim [From Bactrim] Allergy Severe HIVES Verified 08/07/24 05:21 Review of Systems Review of Systems: Yes all other systems are reviewed and are negative Neurologic: Denies Sensory deficit (Neuro) PMFSH Past Medical History Medical History Bleeding hemorrhoids Essential hypertension PVC (premature ventricular contraction) PAC (premature atrial contraction) SVT (supraventricular tachycardia) Chronic constipation High blood pressure Vertigo Dementia Arthritis Anxiety Surgical History No pertinent past surgical history Social History Social History Alcohol intake: never Patient Tobacco Use Status: Never used Tobacco Advance Directives: Yes Advance Directives on File: Yes Advance Directives Date on File: 01/28/24 Physical Exam ED Vital Signs: Vital Signs - 24 hr 08/07/24 05:18 08/07/24 05:23 Temperature 98.8 F 98.8 F Pulse Rate 83 83 Respiratory Rate 14 14 Blood Pressure 154/81 H 154/81 H Pulse Oximetry 98 98 Oxygen Delivery Method Room Air Room Air BMI result Body Mass Index 37.1 Const Other: anxious female with pressured speach Nutritional Appearance: average body habitus Orientation/consciousness: oriented to person and patient oriented x3 Limitations: no limitations HENMT Head: Yes normal to inspection Ears: external ears normal General nose exam: Normal external nose present Mouth: Normal oral and palatal mucosa present and oropharynx normal Throat: Yes posterior oropharynx normal Eyes General: appearance normal, both eyes and all related structures Neck Neck: Yes normal visual inspection Chest Chest palpation & inspection: normal inspection of the chest Resp Auscultation: clear to auscultation bilaterally Cardio Jugular venous distension: no JVD Rate: regular rate Rhythm: regular rhythm Heart sounds: S1 normal heart sound present and S2 normal heart sound present GI Inspection: Yes normal to inspection Palpation (GI): Soft to palpation, nontender and No hepatosplenomegaly present Auscultation: normal bowel sounds General: Yes no CVA tenderness Back/Spine/Pelvis Back: no CVA tenderness Skin General skin exam: no rashes or lesions noted Neuro General: oriented to person and patient oriented x3 Cranial nerves: Yes CN's II-XII intact bilaterally Motor exam (neuro): 5/5 motor strength present throughout Sensory Exam: No Sensory deficit (Neuro) Extrem General: Yes normal to inspection Psych Other: anxious, pressured speech Course Reevaluation(s) Reevaluation #1: will give patient metoprolol and atarax Time: 06:02 Medical Decision Making Differential Diagnosis Differential Diagnoses: The differential diagnosis associated with the presentation includes (anxiety, HTN, palpitation, arrhythmia) Independent Interpretation I performed an independent interpretation of an: Rhythm Strip (sinus 80, no arrhythmia) External Record Review External record reviewed: Outpatient record and Prior outpatient labs Chronic Conditions Patient?s care impacted by: Hypertension Social Determinants Patient?s care significantly limited by Social Determinants of Health including: Low income Discharge Plan Discharge Clinical Impression: Generalized anxiety disorder with panic attacks, Hypertension Patient Disposition: Home, Self-Care Instructions: Generalized Anxiety Disorder (ED), Chronic Hypertension (ED), Hypertension (ED) Prescriptions: New metoprolol succinate 25 mg tablet extended release 24 hr 25 mg PO DAILY Qty: 20 0RF hydroxyzine HCl 25 mg tablet 25 mg PO TID PRN (Reason: anxiety) Qty: 20 0RF No Action metoprolol succinate 50 mg tablet extended release 24 hr 50 mg PO DAILY Qty: 90 2RF lisinopril 40 mg tablet 40 mg PO QPM Qty: 90 0RF Rx Instructions: Please call and schedule cardiology appt mirtazapine 45 mg Tablet 45 mg PO BEDTIME omeprazole 20 mg Tablet,Delayed Release (Dr/Ec) 20 mg PO DAILY fluticasone propionate [Flonase Allergy Relief] 50 mcg/actuation spray,suspension 2 spray intranasal DAILY Qty: 16 0RF Rx Instructions: administer into each nostril trazodone 50 mg tablet 50 mg PO BEDTIME ferrous sulfate [FeroSul] 325 mg (65 mg iron) tablet 325 mg PO DAILY diphenhydramine HCl [Lou-Dryl] 25 mg tablet 25 mg PO BEDTIME PRN (Reason: itch) bisacodyl 5 mg tablet,delayed release (DR/EC) 5 mg PO DAILY PRN (Reason: constipation) rosuvastatin 20 mg tablet 20 mg PO QPM cholecalciferol (vitamin D3) 25 mcg (1,000 unit) tablet 25 mcg PO BID aspirin 81 mg tablet,delayed release (DR/EC) 81 mg PO QAM alprazolam 0.5 mg tablet 0.5 mg PO QID PRN (Reason: Anxiety) multivitamin Tablet 1 tab PO QAM sertraline 100 mg tablet 100 mg PO DAILY melatonin 10 mg tablet extended release 10 mg PO BEDTIME PRN (Reason: Insomnia) cefuroxime axetil 250 mg tablet 250 mg PO BID 7 Days Qty: 14 0RF ondansetron 4 mg tablet,disintegrating 4 mg PO Q6H PRN (Reason: nausea and vomiting) Qty: 10 0RF hydroxyzine HCl 25 mg tablet 25 mg PO TID PRN (Reason: itching) Qty: 10 0RF amlodipine 10 mg tablet 10 mg PO DAILY tamsulosin 0.4 mg capsule 0.4 mg PO BEDTIME 30 Days Qty: 30 3RF Referrals: Physician,Unknown J [Primary Care Provider] - 3 days Print Language: Chilean
[2024-08-07 06:17] VITALS: BP 130/76; PULSE 74
[2024-08-07] MEDS: hydrOXYzine HCL 25 MG TABLET PO (06:17)
[2024-08-07] MEDS: Metoprolol Succinate ER 25 MG TAB.ER.24H PO (06:17)
[2024-08-07 06:23] VITALS: BP 130/76; PULSE 74; RESP 14; TEMP 37.1; O2SAT 98
--- NOTE | 2024-08-07 06:23 | PC.NURSE ---
Pt medidcated per jan Plan of care ongoing.
== END 2024-08-07 06:34 | disposition home or self-care (01) ==
PROVIDERS: Emergency Provider Emergency Medicine
DX: F41.9 Anxiety disorder, unspecified (principal); F41.0 Panic disorder [episodic paroxysmal anxiety]; I10 Essential (primary) hypertension; Z79.899 Other long term (current) drug therapy; Z59.6 Low income
CPT/HCPCS: 99283; 99284

== ENCOUNTER 2024-08-07 19:05 | Emergency (ER) | payer OTHER, SELFPAY ==
[2024-08-07 19:10] VITALS: BP 150/84; PULSE 80; O2SAT 98
[2024-08-07 19:12] VITALS: BMI 26.6
[2024-08-07 19:26] VITALS: BP 148/74; PULSE 90; RESP 16; TEMP 36.6; O2SAT 96
[2024-08-07 20:52] LABS: Appearance Urine Clear; Color Urine Yellow; Glucose Urine UA Negative (Negative); Leukocyte Esterase Urine Large (3+) (Negative); Nitrite Urine Negative (Negative); PH 6.5 (5.0-9.0); UMIC TRIGGER UACC YES; Urine Blood Negative (Negative); Urine Ketones Negative (Negative); Urine Protein Negative (Neg-Trace)
[2024-08-07 20:56] LABS: Bacteria Urine None Seen (None Seen); Hyaline Casts Urine 0-2 /LPF (0-2); RBC Urine 0-2 /HPF (0-2); Squamous Epithelial Cell Urine 0-2 /HPF (0-2); UACC Culture Trigger YES
--- NOTE | 2024-08-07 21:41 | ED_ITS ---
HPI - General Adult General Chief complaint: General Medical Stated complaint: HTN, 154/84 for ems Time Seen by Provider: 08/07/24 21:37 Source: patient Limitations: language barrier History of Present Illness ED Provider: Jeanne Lakhani PA-C HPI narrative: 78-year-old female with a history of hypertension and unmanaged anxiety presents with report of hypertension. Patient states her blood pressure has been elevated at home, and she has been very anxious. She has also had increased frequency of urination and thinks she has a urinary tract infection. Related Data Home Medications ?Medication ?Instructions ?Recorded ?Confirmed mirtazapine 45 mg tablet 45 mg PO BEDTIME 08/09/20 02/09/24 omeprazole 20 mg tablet,delayed 20 mg PO DAILY 08/09/20 02/09/24 release alprazolam 0.5 mg tablet 0.5 mg PO QID PRN Anxiety 01/28/24 02/09/24 aspirin 81 mg tablet,delayed 81 mg PO QAM 01/28/24 02/09/24 release bisacodyl 5 mg tablet,delayed 5 mg PO DAILY PRN constipation 01/28/24 02/09/24 release cholecalciferol (vitamin D3) 25 25 mcg PO BID 01/28/24 02/09/24 mcg (1,000 unit) tablet diphenhydramine HCl 25 mg tablet 25 mg PO BEDTIME PRN itch 01/28/24 02/09/24 (Lou-Dryl) ferrous sulfate 325 mg (65 mg 325 mg PO DAILY 01/28/24 02/09/24 iron) tablet (FeroSul) melatonin 10 mg tablet,extended 10 mg PO BEDTIME PRN Insomnia 01/28/24 02/09/24 release multivitamin 1 tab PO QAM 01/28/24 02/09/24 rosuvastatin 20 mg tablet 20 mg PO QPM 01/28/24 02/09/24 sertraline 100 mg tablet 100 mg PO DAILY 01/28/24 02/09/24 trazodone 50 mg tablet 50 mg PO BEDTIME 01/28/24 02/09/24 amlodipine 10 mg tablet 10 mg PO DAILY 02/09/24 02/09/24 Previous Rx's ?Medication ?Instructions ?Recorded metoprolol succinate 50 mg 50 mg PO DAILY #90 tabs 09/28/20 tablet,extended release 24 hr lisinopril 40 mg tablet 40 mg PO QPM #90 tabs 05/22/23 fluticasone propionate 50 2 spray intranasal DAILY #16 grams 09/16/23 mcg/actuation nasal spray,suspension (Flonase Allergy Relief) cefuroxime axetil 250 mg tablet 250 mg PO BID 7 days #14 tabs 02/02/24 tamsulosin 0.4 mg capsule 0.4 mg PO BEDTIME 30 days #30 caps 02/09/24 hydroxyzine HCl 25 mg tablet 25 mg PO TID PRN itching #10 tabs 04/28/24 ondansetron 4 mg disintegrating 4 mg PO Q6H PRN nausea and 04/28/24 tablet vomiting #10 tabs hydroxyzine HCl 25 mg tablet 25 mg PO TID PRN anxiety #20 tabs 08/07/24 hydroxyzine HCl 25 mg tablet 25 mg PO TID PRN anxiety #6 tabs 08/07/24 metoprolol succinate 25 mg 25 mg PO DAILY #2 tabs 08/07/24 tablet,extended release 24 hr metoprolol succinate 25 mg 25 mg PO DAILY #20 tabs 08/07/24 tablet,extended release 24 hr Allergies Allergy/AdvReac Type Severity Reaction Status Date / Time penicillin G [Penicillin G] Allergy Severe ITCHY/RASH Verified 08/08/24 22:23 Sulfa (Sulfonamide Allergy Severe ITCHY,RASH, Verified 08/08/24 22:23 Antibiotics) rash [Sulfa (Sulfonamides)] trimethoprim [From Bactrim] Allergy Severe HIVES Verified 08/08/24 22:23 Review of Systems Review of Systems: Yes all other systems are reviewed and are negative Constitutional: Constitutional: Denies fever(s) Cardiovascular: Cardiovascular: Denies chest pain and Reports dyspnea Respiratory: Respiratory: Reports dyspnea Gastrointestinal: Gastrointestinal: Denies abdominal pain Genitourinary: Genitourinary: Denies dysuria and Reports urinary urgency [facility] Past Medical History Attestation statement: The following information was validated with the patient. Medical History Bleeding hemorrhoids Essential hypertension PVC (premature ventricular contraction) PAC (premature atrial contraction) SVT (supraventricular tachycardia) Chronic constipation High blood pressure Vertigo Dementia Arthritis Anxiety Surgical History No pertinent past surgical history Social History Social History Alcohol intake: never Patient Tobacco Use Status: Never used Tobacco Advance Directives Date on File: 01/28/24 Physical Exam ED Vital Signs: Vital Signs - 24 hr 08/07/24 19:26 Temperature 97.8 F Pulse Rate 90 Respiratory Rate 16 Blood Pressure 148/74 H Pulse Oximetry 96 Oxygen Delivery Method Room Air BMI result Body Mass Index 26.6 Const Other: Awake, overall well in appearance Orientation/consciousness: patient oriented x3 Resp Effort & Inspection: normal respiratory effort Cardio Other: Normal peripheral perfusion Skin Other: Warm dry no rash Neuro General: patient oriented x3, no focal motor deficits and CN's II-XI intact bilaterally Psych Other: Anxious, becoming tearful and upset Medications Administered Discontinued Medications Generic Name Dose Route Start Last Admin Trade Name Freq PRN Reason Stop Dose Admin Acetaminophen 975 mg 08/07/24 21:39 08/07/24 21:45 Acetaminophen 325 Mg Tablet PO 08/07/24 21:40 975 mg ONCE ONE Administration Hydroxyzine HCl 25 mg 08/07/24 22:08 08/07/24 22:11 Hydroxyzine Hcl 25 Mg Tablet PO 08/07/24 22:09 25 mg ONCE ONE Administration Medical Decision Making Medical Decision Making MDM Narrative: 78-year-old female with a history of hypertension and unmanaged anxiety presents with report of hypertension. Patient states her blood pressure has been elevated at home, and she has been very anxious. She has also had increased frequency of urination and thinks she has a urinary tract infection. Problem: Hypertension, unmanaged anxiety History: Per patient I have considered the following differential diagnosis: Hypertensive urgency, hypertensive emergency, anxiety, panic attack, UTI Plan: Sadly, the patient is well known to the emergency department. She is here frequently with chronic complaints of hypertension, mixed with various symptoms. She was seen in the ER this morning at 6:00 a.m. because she stated that she did not have medication at home and she could not olive picker additional medication until Friday. She was given a prescription for her blood pressure medication. She was also given a prescription for hydroxyzine. When asked why she did not olive picker the medication at the pharmacy, she did not have any answer. She is saying that her pharmacy is closed. It is now going to be Friday, I will give a patient a short prescription for her blood pressure and anxiety medication to get her through to Friday. I am giving her a dose of hydroxyzine here in the emergency room. She has verbalized understanding that she is aware that we are changing the pharmacy, to one that is open today. To note, she is not hypertensive. And she does not have a urinary tract infection. Other screening labs including cardiac enzymes were obtained I have independently reviewed the following tests: Labs: Not anemic, no leukocytosis, no electrolyte abnormality, troponin negative, urine not infected Lab Data Labs: Lab Results 08/07/24 Range/Units 20:44 Urine Color Yellow Urine Appearance Clear Urine pH 6.5 (5.0-9.0) Ur Specific [place] 1.010 (1.005-1.025) Urine Protein Negative (Neg-Trace) mg/dL Urine Glucose (UA) Negative (Negative) mg/dL Urine Ketones Negative (Negative) mg/dL Urine Blood Negative (Negative) Urine Nitrite Negative (Negative) Ur Leukocyte Esterase Large (3+) H (Negative) Urine RBC 0-2 (0-2) /HPF Urine WBC 11-20 H (0-5) /HPF Ur Squamous Epith Cells 0-2 (0-2) /HPF Urine Bacteria None Seen (None Seen) Hyaline Casts 0-2 (0-2) /LPF Discharge Plan Discharge Clinical Impression: Hypertension Patient Disposition: Home, Self-Care Instructions: Chronic Hypertension (ED) Additional Instructions: You do not have a urinary tract infection your urine was normal. You were just seen this morning in the emergency department, the doctor gave you a prescription for anxiety and for high blood pressure. You need to pick it up at the pharmacy. You are now indicating that your pharmacy is closed on Sundays, and the you neglected to olive picker your prescription today. I am sending additional medication to the [facility] on [facility] in [place]. This pharmacy is open tomorrow at 9:00 a.m.. You need to follow up with your primary care provider as needed. Prescriptions: New metoprolol succinate 25 mg tablet extended release 24 hr 25 mg PO DAILY Qty: 2 0RF hydroxyzine HCl 25 mg tablet 25 mg PO TID PRN (Reason: anxiety) Qty: 6 0RF No Action metoprolol succinate 50 mg tablet extended release 24 hr 50 mg PO DAILY Qty: 90 2RF lisinopril 40 mg tablet 40 mg PO QPM Qty: 90 0RF Rx Instructions: Please call and schedule cardiology appt mirtazapine 45 mg Tablet 45 mg PO BEDTIME omeprazole 20 mg Tablet,Delayed Release (Dr/Ec) 20 mg PO DAILY fluticasone propionate [Flonase Allergy Relief] 50 mcg/actuation spray,suspension 2 spray intranasal DAILY Qty: 16 0RF Rx Instructions: administer into each nostril trazodone 50 mg tablet 50 mg PO BEDTIME ferrous sulfate [FeroSul] 325 mg (65 mg iron) tablet 325 mg PO DAILY diphenhydramine HCl [Lou-Dryl] 25 mg tablet 25 mg PO BEDTIME PRN (Reason: itch) bisacodyl 5 mg tablet,delayed release (DR/EC) 5 mg PO DAILY PRN (Reason: constipation) rosuvastatin 20 mg tablet 20 mg PO QPM cholecalciferol (vitamin D3) 25 mcg (1,000 unit) tablet 25 mcg PO BID aspirin 81 mg tablet,delayed release (DR/EC) 81 mg PO QAM alprazolam 0.5 mg tablet 0.5 mg PO QID PRN (Reason: Anxiety) multivitamin Tablet 1 tab PO QAM sertraline 100 mg tablet 100 mg PO DAILY melatonin 10 mg tablet extended release 10 mg PO BEDTIME PRN (Reason: Insomnia) cefuroxime axetil 250 mg tablet 250 mg PO BID 7 Days Qty: 14 0RF ondansetron 4 mg tablet,disintegrating 4 mg PO Q6H PRN (Reason: nausea and vomiting) Qty: 10 0RF hydroxyzine HCl 25 mg tablet 25 mg PO TID PRN (Reason: itching) Qty: 10 0RF metoprolol succinate 25 mg tablet extended release 24 hr 25 mg PO DAILY Qty: 20 0RF hydroxyzine HCl 25 mg tablet 25 mg PO TID PRN (Reason: anxiety) Qty: 20 0RF amlodipine 10 mg tablet 10 mg PO DAILY tamsulosin 0.4 mg capsule 0.4 mg PO BEDTIME 30 Days Qty: 30 3RF Interventions: ED Discharge Assessment Last Done: 08/07/24 22:20 Discharge Date/Time: 08/07/24 22:20 Print Language: Yoruba
[2024-08-07] MEDS: Acetaminophen 325 MG TABLET 975 MG PO (21:45)
[2024-08-07] MEDS: hydrOXYzine HCL 25 MG TABLET PO (22:11)
[2024-08-07 22:19] VITALS: BP 143/75; PULSE 73; RESP 16; TEMP 36.7; O2SAT 98
[2024-08-07 22:20] VITALS: BP 143/75; PULSE 73; RESP 16; TEMP 36.7; O2SAT 98
== END 2024-08-07 22:20 | disposition home or self-care (01) ==
PROVIDERS: Emergency Provider Internal Medicine
DX: I10 Essential (primary) hypertension (principal); R35.0 Frequency of micturition; Z79.899 Other long term (current) drug therapy
CPT/HCPCS: 81001; 87086; 99283; 99284

== ENCOUNTER 2024-08-08 01:08 | Emergency (ER) | payer OTHER, SELFPAY ==
[2024-08-08] VITALS (8 sets, daily range): BP systolic 147–192; BP diastolic 72–96; PULSE 77–110; RESP 16–20; TEMP 36.2–37.4; O2SAT 96–99; BMI 28.0
--- NOTE | 2024-08-08 03:50 | ED.GENADULT ---
HPI - General Adult General Chief complaint: General Medical Stated complaint: HYPERTENSION Time Seen by Provider: 08/08/24 03:50 History of Present Illness ED Provider: michela DUMONT narrative: The patient is an 78-year-old female with a history of hypertension and anxiety. She is regularly prescribed alprazolam and zolpidem. She is also on amlodipine and metoprolol. The patient came to the emergency room yesterday morning complaining of anxiety and hypertension. She then returned yesterday evening. She now returns saying she has a headache and her blood pressures were high. She frequently comes to the emergency room often seeming very anxious with multiple complaints. She is also complaining of feeling itchy. Related Data Home Medications ?Medication ?Instructions ?Recorded ?Confirmed mirtazapine 45 mg tablet 45 mg PO BEDTIME 08/09/20 02/09/24 omeprazole 20 mg tablet,delayed 20 mg PO DAILY 08/09/20 02/09/24 release alprazolam 0.5 mg tablet 0.5 mg PO QID PRN Anxiety 01/28/24 02/09/24 aspirin 81 mg tablet,delayed 81 mg PO QAM 01/28/24 02/09/24 release bisacodyl 5 mg tablet,delayed 5 mg PO DAILY PRN constipation 01/28/24 02/09/24 release cholecalciferol (vitamin D3) 25 25 mcg PO BID 01/28/24 02/09/24 mcg (1,000 unit) tablet diphenhydramine HCl 25 mg tablet 25 mg PO BEDTIME PRN itch 01/28/24 02/09/24 (Lou-Dryl) ferrous sulfate 325 mg (65 mg 325 mg PO DAILY 01/28/24 02/09/24 iron) tablet (FeroSul) melatonin 10 mg tablet,extended 10 mg PO BEDTIME PRN Insomnia 01/28/24 02/09/24 release multivitamin 1 tab PO QAM 01/28/24 02/09/24 rosuvastatin 20 mg tablet 20 mg PO QPM 01/28/24 02/09/24 sertraline 100 mg tablet 100 mg PO DAILY 01/28/24 02/09/24 trazodone 50 mg tablet 50 mg PO BEDTIME 01/28/24 02/09/24 amlodipine 10 mg tablet 10 mg PO DAILY 02/09/24 02/09/24 Previous Rx's ?Medication ?Instructions ?Recorded metoprolol succinate 50 mg 50 mg PO DAILY #90 tabs 09/28/20 tablet,extended release 24 hr lisinopril 40 mg tablet 40 mg PO QPM #90 tabs 05/22/23 fluticasone propionate 50 2 spray intranasal DAILY #16 grams 09/16/23 mcg/actuation nasal spray,suspension (Flonase Allergy Relief) cefuroxime axetil 250 mg tablet 250 mg PO BID 7 days #14 tabs 02/02/24 tamsulosin 0.4 mg capsule 0.4 mg PO BEDTIME 30 days #30 caps 02/09/24 hydroxyzine HCl 25 mg tablet 25 mg PO TID PRN itching #10 tabs 04/28/24 ondansetron 4 mg disintegrating 4 mg PO Q6H PRN nausea and 04/28/24 tablet vomiting #10 tabs hydroxyzine HCl 25 mg tablet 25 mg PO TID PRN anxiety #20 tabs 08/07/24 hydroxyzine HCl 25 mg tablet 25 mg PO TID PRN anxiety #6 tabs 08/07/24 metoprolol succinate 25 mg 25 mg PO DAILY #2 tabs 08/07/24 tablet,extended release 24 hr metoprolol succinate 25 mg 25 mg PO DAILY #20 tabs 08/07/24 tablet,extended release 24 hr Allergies Allergy/AdvReac Type Severity Reaction Status Date / Time penicillin G [Penicillin G] Allergy Severe ITCHY/RASH Verified 08/08/24 01:20 Sulfa (Sulfonamide Allergy Severe ITCHY,RASH, Verified 08/08/24 01:20 Antibiotics) rash [Sulfa (Sulfonamides)] trimethoprim [From Bactrim] Allergy Severe HIVES Verified 08/08/24 01:20 Review of Systems Review of Systems: Yes all other systems are reviewed and are negative PMFSH Past Medical History Medical History Bleeding hemorrhoids Essential hypertension PVC (premature ventricular contraction) PAC (premature atrial contraction) SVT (supraventricular tachycardia) Chronic constipation High blood pressure Vertigo Dementia Arthritis Anxiety Surgical History No pertinent past surgical history Social History Social History Alcohol intake: never Patient Tobacco Use Status: Never used Tobacco Advance Directives: Yes Advance Directives on File: Yes Advance Directives Date on File: 01/28/24 Physical Exam ED Vital Signs: Vital Signs - 24 hr 08/08/24 01:16 08/08/24 01:20 08/08/24 01:48 Temperature 99.4 F 99.4 F Pulse Rate 95 95 80 Respiratory Rate 20 19 17 Blood Pressure 161/90 H 161/90 H 157/83 H Pulse Oximetry 99 99 99 Oxygen Delivery Method Room Air Room Air Room Air 08/08/24 03:59 08/08/24 04:57 08/08/24 06:21 Temperature Pulse Rate 81 77 80 Respiratory Rate 16 18 Blood Pressure 147/72 H 176/89 H 166/83 H Pulse Oximetry 96 96 Oxygen Delivery Method Room Air Room Air 08/08/24 06:55 Temperature 97.2 F Pulse Rate 77 Respiratory Rate 18 Blood Pressure 157/90 H Pulse Oximetry 98 Oxygen Delivery Method Room Air BMI result Body Mass Index 28.0 Const Other: The patient is awake and alert. She seems anxious and was very eager for attention. HENMT Other: Face is symmetrical. Mucous membranes moist. Eyes General: appearance normal, both eyes and all related structures Neck Neck: Yes no JVD Resp Effort & Inspection: normal respiratory effort Auscultation: clear to auscultation bilaterally Cardio Rate: regular rate Rhythm: regular rhythm Heart sounds: S1 normal heart sound present and S2 normal heart sound present Skin General skin exam: no rashes or lesions noted Neuro Other: The patient is awake and alert. Cranial nerves are grossly intact. She moves her extremities symmetrically. She seems preoccupied with her anxieties. Extrem Other: No calf swelling or asymmetry. Medications Administered Discontinued Medications Generic Name Dose Route Start Last Admin Trade Name Freq PRN Reason Stop Dose Admin Acetaminophen 975 mg 08/08/24 04:23 08/08/24 04:56 Acetaminophen 325 Mg Tablet PO 08/08/24 04:24 975 mg ONCE ONE Administration Alprazolam 0.5 mg 08/08/24 04:23 08/08/24 04:57 Alprazolam 0.5 Mg Tablet PO 08/08/24 04:24 0.5 mg ONCE ONE Administration Diphenhydramine HCl 25 mg 08/08/24 06:07 08/08/24 06:46 Diphenhydramine Hcl 25 Mg Capsule PO 08/08/24 06:08 25 mg ONCE ONE Administration Metoprolol Tartrate 25 mg 08/08/24 04:23 08/08/24 04:57 Metoprolol Tartrate 25 Mg Tablet PO 08/08/24 04:24 25 mg ONCE ONE Administration Protocol Medical Decision Making Medical Decision Making MDM Narrative: The patient was requesting medication for her headache, her blood pressure, her anxiety, and her itchiness. She was given a dose of acetaminophen, metoprolol, alprazolam (which she is prescribed), and diphenhydramine. She was then discharged. Discharge Plan Discharge Clinical Impression: Anxiety, Headache, Hypertension Patient Disposition: Home, Self-Care Additional Instructions: Please resume your normal medications. Prescriptions were sent to the pharmacy at [facility] for a small amount of medication if you need additional medication today. Additional prescriptions were sent to your regular pharmacy which you may knot picker cloth on Friday. Most importantly you need to follow up with your regular doctor to make sure all of your medications are correct. Return to the emergency room if you feel significantly worse. Prescriptions: No Action metoprolol succinate 50 mg tablet extended release 24 hr 50 mg PO DAILY Qty: 90 2RF lisinopril 40 mg tablet 40 mg PO QPM Qty: 90 0RF Rx Instructions: Please call and schedule cardiology appt mirtazapine 45 mg Tablet 45 mg PO BEDTIME omeprazole 20 mg Tablet,Delayed Release (Dr/Ec) 20 mg PO DAILY fluticasone propionate [Flonase Allergy Relief] 50 mcg/actuation spray,suspension 2 spray intranasal DAILY Qty: 16 0RF Rx Instructions: administer into each nostril metoprolol succinate 25 mg tablet extended release 24 hr 25 mg PO DAILY Qty: 2 0RF hydroxyzine HCl 25 mg tablet 25 mg PO TID PRN (Reason: anxiety) Qty: 6 0RF trazodone 50 mg tablet 50 mg PO BEDTIME ferrous sulfate [FeroSul] 325 mg (65 mg iron) tablet 325 mg PO DAILY diphenhydramine HCl [Lou-Dryl] 25 mg tablet 25 mg PO BEDTIME PRN (Reason: itch) bisacodyl 5 mg tablet,delayed release (DR/EC) 5 mg PO DAILY PRN (Reason: constipation) rosuvastatin 20 mg tablet 20 mg PO QPM cholecalciferol (vitamin D3) 25 mcg (1,000 unit) tablet 25 mcg PO BID aspirin 81 mg tablet,delayed release (DR/EC) 81 mg PO QAM alprazolam 0.5 mg tablet 0.5 mg PO QID PRN (Reason: Anxiety) multivitamin Tablet 1 tab PO QAM sertraline 100 mg tablet 100 mg PO DAILY melatonin 10 mg tablet extended release 10 mg PO BEDTIME PRN (Reason: Insomnia) cefuroxime axetil 250 mg tablet 250 mg PO BID 7 Days Qty: 14 0RF ondansetron 4 mg tablet,disintegrating 4 mg PO Q6H PRN (Reason: nausea and vomiting) Qty: 10 0RF hydroxyzine HCl 25 mg tablet 25 mg PO TID PRN (Reason: itching) Qty: 10 0RF metoprolol succinate 25 mg tablet extended release 24 hr 25 mg PO DAILY Qty: 20 0RF hydroxyzine HCl 25 mg tablet 25 mg PO TID PRN (Reason: anxiety) Qty: 20 0RF amlodipine 10 mg tablet 10 mg PO DAILY tamsulosin 0.4 mg capsule 0.4 mg PO BEDTIME 30 Days Qty: 30 3RF Referrals: Name,MD Nitin [Physician] - (Anxiety, headache, hypertension) Interventions: ED Discharge Assessment Last Done: 08/08/24 06:55 Discharge Date/Time: 08/08/24 06:58 Print Language: [place]
[2024-08-08] MEDS: Acetaminophen 325 MG TABLET 975 MG PO (04:56)
[2024-08-08] MEDS: Metoprolol Tartrate 25 MG TABLET PO (04:57)
[2024-08-08] MEDS: ALPRAZolam 0.5 MG TABLET PO (04:57)
[2024-08-08] MEDS: diphenhydrAMINE HCL 25 MG CAPSULE PO (06:46)
== END 2024-08-08 06:58 | disposition home or self-care (01) ==
PROVIDERS: Emergency Provider Emergency Medicine
DX: F41.1 Generalized anxiety disorder (principal); F43.0 Acute stress reaction; R51.9 Headache, unspecified; L29.9 Pruritus, unspecified; I10 Essential (primary) hypertension; Z79.899 Other long term (current) drug therapy
CPT/HCPCS: 99284

== ENCOUNTER 2024-08-08 22:13 | Inpatient (IN) | payer OTHER, SELFPAY ==
[2024-08-08 22:19] VITALS: BP 186/88; PULSE 78; O2SAT 99
[2024-08-08 22:21] VITALS: BP 152/63; PULSE 78; RESP 20; TEMP 37.2; O2SAT 96; BMI 28.0
[2024-08-08 22:37] LABS: MANUAL DIFF FLAG NO
[2024-08-08 22:40] LABS: Basophils Percent Auto 0.3 % (0-2); Eosinophils Percent Auto 0.2 % (0-4); Hematocrit 36.4 % (37.0-47.0); Hemoglobin 12.8 g/dl (12.0-16.0); Imm Gran Abs Auto 0.05 X10*3/uL (0.00-0.03); Imm Gran Pct Auto 0.5 % (0.0-0.4); Lymphocytes Absolute Auto 1.3 X10*3/uL (1.2-4.9); Mean Corpuscular HGB Conc 35.2 g/dl (31.0-35.0); Mean Corpuscular Hemoglobin 28.8 pg (27.0-33.0); Mean Corpuscular Volume 81.8 fL (80.0-98.0); Mean Platelet Volume 7.9 fL (9.4-12.3); Monocytes Absolute Auto 0.6 X10*3/uL (0.1-1.2); Monocytes Percent Auto 5.8 % (2-11); Neutrophils Absolute Auto 7.9 x10*3/uL (2.0-8.3); Neutrophils Percent Auto 80.2 % (45-73); Platelet Count 324 X10*3/uL (160-400); Red Blood Count 4.45 X10*6/uL (4.20-5.50); Red Cell Distribution Width 13.8 % (11.0-16.0); White Blood Count 9.9 X10*3/uL (4.8-10.8)
[2024-08-08 22:56] LABS: Alanine Aminotransferase 17 U/L (0-31); Albumin Level 4.6 g/dL (3.5-5.0); Alkaline Phosphatase 78 U/L (39-117); Anion Gap 16 (12-20); Aspartate Amino Transferase 25 U/L (5-31); Bilirubin Total 0.5 mg/dL (0.0-1.0); Blood Urea Nitrogen 20 mg/dL (9-16); Calcium 10.3 mg/dL (8.4-10.2); Carbon Dioxide 24 mmol/L (22-29); Chloride 91 mmol/L (96-108); Creatinine Clr Calc Pharmacy 55.2; Estimated Glomerular Filt Rate 59; Glucose Random 133 mg/dL (60-115); Potassium 4.4 mmol/L (3.3-5.1); Sodium 127 mmol/L (135-145); Total Protein 8.9 g/dL (6.5-8.0)
[2024-08-08 23:20] LABS: Influenza A PCR NEGATIVE (Negative); Influenza B PCR NEGATIVE (Negative); Resp Syncy Virus RNA Qual PCR NEGATIVE (Negative); SARS COV2 PCR INHOUSE NEGATIVE (Negative)
[2024-08-09] VITALS (7 sets, daily range): BP systolic 150–168; BP diastolic 69–99; PULSE 70–100; RESP 16–20; TEMP 36.5–37.2; O2SAT 93–98
--- NOTE | 2024-08-09 02:08 | ED.GENADULT ---
HPI - General Adult General Chief complaint: General Medical Stated complaint: DIZZY,HTN Time Seen by Provider: 08/09/24 01:55 Source: patient, EMS, old records reviewed and ophthalmic aide Mode of arrival: EMS Limitations: other (poor historian) History of Present Illness ED Provider: EMILIA DUMONT narrative: 78 yo female with PMH of anxiety, HTN, cognitive disorder, SVT, arthritis, recurrent hyponatremia here with /co anxiety, headaches, n/v she is here requesting metoprolol 4th visit in 2 days asking for the same on 08/07 she was prescribed her metoprolol by Kar RUIZ. She was given a dose of metoprolol 08/[address] Sotelo. She comes back to with c/o nausea, vomited x 2 due to anxiety. She wants more blood pressure medications as [facility] will not have them until today though it looks like it was filled 08/02/24 for 30 day supply. She is also asking for anxiety medications. She denies diarrhea. She states she has too much panic. MD complaint: anxiety, med request Onset (ago): day(s) (3) Radiation: non-radiation Severity: moderate Relieving factors: none Exacerbating factors: other Associated symptoms: other (anxiety, panic, nausea, headaches) Treatments prior to arrival: none Related Data Home Medications ?Medication ?Instructions ?Recorded ?Confirmed mirtazapine 45 mg tablet 45 mg PO BEDTIME 08/09/20 02/09/24 omeprazole 20 mg tablet,delayed 20 mg PO DAILY 08/09/20 02/09/24 release alprazolam 0.5 mg tablet 0.5 mg PO QID PRN Anxiety 01/28/24 02/09/24 aspirin 81 mg tablet,delayed 81 mg PO QAM 01/28/24 02/09/24 release bisacodyl 5 mg tablet,delayed 5 mg PO DAILY PRN constipation 01/28/24 02/09/24 release cholecalciferol (vitamin D3) 25 25 mcg PO BID 01/28/24 02/09/24 mcg (1,000 unit) tablet diphenhydramine HCl 25 mg tablet 25 mg PO BEDTIME PRN itch 01/28/24 02/09/24 (Lou-Dryl) ferrous sulfate 325 mg (65 mg 325 mg PO DAILY 01/28/24 02/09/24 iron) tablet (FeroSul) melatonin 10 mg tablet,extended 10 mg PO BEDTIME PRN Insomnia 01/28/24 02/09/24 release multivitamin 1 tab PO QAM 01/28/24 02/09/24 rosuvastatin 20 mg tablet 20 mg PO QPM 01/28/24 02/09/24 sertraline 100 mg tablet 100 mg PO DAILY 01/28/24 02/09/24 trazodone 50 mg tablet 50 mg PO BEDTIME 01/28/24 02/09/24 amlodipine 10 mg tablet 10 mg PO DAILY 02/09/24 02/09/24 Previous Rx's ?Medication ?Instructions ?Recorded metoprolol succinate 50 mg 50 mg PO DAILY #90 tabs 09/28/20 tablet,extended release 24 hr lisinopril 40 mg tablet 40 mg PO QPM #90 tabs 05/22/23 fluticasone propionate 50 2 spray intranasal DAILY #16 grams 09/16/23 mcg/actuation nasal spray,suspension (Flonase Allergy Relief) cefuroxime axetil 250 mg tablet 250 mg PO BID 7 days #14 tabs 02/02/24 tamsulosin 0.4 mg capsule 0.4 mg PO BEDTIME 30 days #30 caps 02/09/24 hydroxyzine HCl 25 mg tablet 25 mg PO TID PRN itching #10 tabs 04/28/24 ondansetron 4 mg disintegrating 4 mg PO Q6H PRN nausea and 04/28/24 tablet vomiting #10 tabs hydroxyzine HCl 25 mg tablet 25 mg PO TID PRN anxiety #20 tabs 08/07/24 hydroxyzine HCl 25 mg tablet 25 mg PO TID PRN anxiety #6 tabs 08/07/24 metoprolol succinate 25 mg 25 mg PO DAILY #2 tabs 08/07/24 tablet,extended release 24 hr metoprolol succinate 25 mg 25 mg PO DAILY #20 tabs 08/07/24 tablet,extended release 24 hr Allergies Allergy/AdvReac Type Severity Reaction Status Date / Time penicillin G [Penicillin G] Allergy Severe ITCHY/RASH Verified 08/08/24 22:23 Sulfa (Sulfonamide Allergy Severe ITCHY,RASH, Verified 08/08/24 22:23 Antibiotics) rash [Sulfa (Sulfonamides)] trimethoprim [From Bactrim] Allergy Severe HIVES Verified 08/08/24 22:23 Review of Systems Review of Systems: Constitutional : No Fever, No Chills, No Fatigue ENT/Mouth : No sore throat, No Rhinorrhea Cardiovascular : No Chest Pain, No SOB, No Dyspnea on Exertion Respiratory : No Cough, No Sputum Gastrointestinal : pos Nausea, No Vomiting, No Diarrhea, No abdominal Pain Genitourinary : No Dysuria, No Urinary Frequency, No Hematuria, Musculoskeletal : No joint pain, No Myalgias, No Joint Swelling Skin : No Skin Lesions, No rash Neuro : No Weakness, No Numbness, No Dizziness, no Headache Psych : pos Anxiety/Panic, No Depression All other systems reviewed and are negative [facility] Past Medical History Attestation statement: The following information was validated with the patient. Source: old records reviewed Medical History Bleeding hemorrhoids Essential hypertension PVC (premature ventricular contraction) PAC (premature atrial contraction) SVT (supraventricular tachycardia) Chronic constipation High blood pressure Vertigo Dementia Arthritis Anxiety Surgical History No pertinent past surgical history Social History Social History Alcohol intake: never Patient Tobacco Use Status: Never used Tobacco Smoked in Last 30 Days: No Use of substances other than those prescribed or required for medical reasons: No Advance Directives: Yes Advance Directives on File: Yes Advance Directives Date on File: 01/28/24 Physical Exam ED Vital Signs: Vital Signs - 24 hr 08/08/24 22:21 08/09/24 02:10 Temperature 99.0 F 98.7 F Pulse Rate 78 79 Respiratory Rate 20 18 Blood Pressure 152/63 H 164/98 H Pulse Oximetry 96 98 Oxygen Delivery Method Room Air Room Air BMI result Body Mass Index 28.0 Appearance: Alert. Oriented X2. No acute distress. anxious Eyes: Pupils equal, round and reactive to light. ENT: Pharynx normal. Neck: Normal inspection. Neck supple. CVS: Normal heart rate and rhythm. Pulses normal. Respiratory: No respiratory distress. Breath sounds normal. Abdomen: Soft and non-tender. Skin: Skin warm and dry. Normal skin color. Normal skin turgor. Extremities: No lower extremity edema. Neuro: Oriented X 2. No motor deficit. No sensory deficit. Course Course Course Narrative: left message with daughter 237am in regards to Na Reevaluation(s) Reevaluation #1: from Andreina PSYCHOMETRICIAN note psychiatry 01/28/24 Her ability to comprehend and retain information is limited. She does NOT have capacity to make decisions and does require significant support coordinating medical care and making decisions on her behalf. In addition, it has been of concern that pt usually comes on her own, unable to retain information given at different times of the day and night. Capacity is NOT expected to be regained and recommend MD to invoke HCP. per case management notes 02/02/24 Patient was found not to have capacity on 01/28 and HCP was invoked by Dr Fernandez. Medications Administered Discontinued Medications Generic Name Dose Route Start Last Admin Trade Name Freq PRN Reason Stop Dose Admin Alprazolam 0.5 mg 08/09/24 02:18 08/09/24 02:22 Alprazolam 0.5 Mg Tablet PO 08/09/24 02:19 0.5 mg ONCE ONE Administration Medical Decision Making Medical Decision Making MDM Narrative: 78 yo female with PMH of anxiety, HTN, cognitive disorder, SVT, arthritis, recurrent hyponatremia she now reports anxiety and n/v x 2. At this time initial Na is low will recheck after she has been in waiting room for about 4 hours. She denies diarrhea. She has low Na baseline about 130-133 but today is Na is 127. Recheck it was 126. Per Psych notes and case management notes from 02/02/24 her HCP was invoked as she does not have capacity to make decisions and her daughter Jeanne is supposed to be notified [phone]. Given her low Na and downtrend would start on NaCl tabs and hold water she does not appear dehydrated clinically suspect SIADH or med related issue. She is aware she cannot leave AMA until her daughter agrees to this. Differential Diagnosis Differential Diagnoses: The differential diagnosis associated with the presentation includes anxiety, poor support, lyte abnormality Admission/Observation Consideration of admission/observation: Escalation of care including admission/observation considered given Na 126 will need admission - anxiety, dizziness, n/v Consult Healthcare Provider Management of the patient was discussed with: Hospitalist (will admit) Lab Data [facility] Lab Attestation statement: I reviewed the patient's lab results. 08/08/24 22:32 08/09/24 02:09 Labs: Lab Results 08/08/24 08/09/24 Range/Units 22:32 02:09 WBC 9.9 (4.8-10.8) X10*3/uL RBC 4.45 (4.20-5.50) X10*6/uL Hgb 12.8 (12.0-16.0) g/dl Hct 36.4 L (37.0-47.0) % MCV 81.8 (80.0-98.0) fL MCH 28.8 (27.0-33.0) pg MCHC 35.2 H (31.0-35.0) g/dl RDW 13.8 (11.0-16.0) % Plt Count 324 (160-400) X10*3/uL MPV 7.9 L (9.4-12.3) fL Immature Gran % (Auto) 0.5 H (0.0-0.4) % Neut % (Auto) 80.2 H (45-73) % Lymph % (Auto) 13.0 L (20-40) % [place] % (Auto) 5.8 (2-11) % Eos % (Auto) 0.2 (0-4) % Baso % (Auto) 0.3 (0-2) % Lymph # (Auto) 1.3 (1.2-4.9) X10*3/uL [place] # (Auto) 0.6 (0.1-1.2) X10*3/uL Eos # (Auto) 0.0 (0.0-0.4) X10*3/uL Baso # (Auto) 0.0 (0.0-0.2) X10*3/uL Abs Immat Gran (auto) 0.05 H (0.00-0.03) X10*3/uL Absolute Neuts (auto) 7.9 (2.0-8.3) x10*3/uL Absolute Nucleated RBC 0.000 (0.0-0.012) X10*3/uL Nucleated RBC % (auto) 0.0 (0.0-0.2) /100WBC Sodium 127 L 126 L (135-145) mmol/L Potassium 4.4 4.4 (3.3-5.1) mmol/L Chloride 91 L 92 L (96-108) mmol/L Carbon Dioxide 24 21 L (22-29) mmol/L Anion Gap 16 17 (12-20) BUN 20 H 20 H (9-16) mg/dL Creatinine 0.92 0.99 (0.5-1.4) mg/dL Estim Creat Clear Calc 55.2 51.3 Estimated GFR 59 54 Random Glucose 133 H 129 H (60-115) mg/dL Calcium 10.3 H D 10.1 (8.4-10.2) mg/dL Total Bilirubin 0.5 (0.0-1.0) mg/dL AST 25 (5-31) U/L ALT 17 (0-31) U/L Alkaline Phosphatase 78 (39-117) U/L Total Protein 8.9 H (6.5-8.0) g/dL Albumin 4.6 (3.5-5.0) g/dL Influenza Type A (PCR) NEGATIVE (Negative) Influenza Type B (PCR) NEGATIVE (Negative) RSV RNA Qual (PCR) NEGATIVE (Negative) SARS-CoV-2 RNA (RT-PCR) NEGATIVE (Negative) Independent Interpretation I performed an independent interpretation of an: EKG Interpretation: Rate: 78 Rhythm: NSR [place]: left, LVH Normal P waves. Normal MALIK. Normal QRS complex. ST T wave : no DOUGLAS, flat t wave V2, inverted t wave V1 qTC: 435 prior studies: no sig ischemia The study has been interpreted contemporaneously by me. . Independent Historian Clinical information obtained from an independent historian. History obtained from or confirmed by: EMS External Record Review External record reviewed: Inpatient record Social Determinants Patient?s care significantly limited by Social Determinants of Health including: Problems related to primary support group Discharge Plan Discharge Clinical Impression: Acute hyponatremia Patient Disposition: Admitted As Inpatient Print Language: Kyrgyz
[2024-08-09] MEDS: ALPRAZolam 0.5 MG TABLET PO ×2 (02:22→09:58)
--- NOTE | 2024-08-09 02:25 | PC.NURSE ---
appliance adjuster at bedside. pt reporting high blood pressure starting today. pt reporting nausea and vomiting starting today, pt denies blood in vomit. 20G placed in right ac, labs obtained. pt medicated per jan.
[2024-08-09 02:26] LABS: Anion Gap 17 (12-20); Blood Urea Nitrogen 20 mg/dL (9-16); Calcium 10.1 mg/dL (8.4-10.2); Carbon Dioxide 21 mmol/L (22-29); Chloride 92 mmol/L (96-108); Creatinine Clr Calc Pharmacy 51.3; Estimated Glomerular Filt Rate 54; Glucose Random 129 mg/dL (60-115); Potassium 4.4 mmol/L (3.3-5.1); Sodium 126 mmol/L (135-145)
--- NOTE | 2024-08-09 02:48 | ECG_ITS ---
Test Reason : LOW SODIUM Blood Pressure : / mmHG Vent. Rate : 078 BPM Atrial Rate : 078 BPM P-R Int : 186 ms QRS Dur : 100 ms QT Int : 382 ms P-R-T Axes : 052 -37 011 degrees QTc Int : 435 ms Normal sinus rhythm with sinus arrhythmia Left axis deviation Incomplete right bundle branch block Moderate voltage criteria for LVH, may be normal variant ( R in aVL , Burna product ) Abnormal ECG When compared with ECG of 25-JUL-2024 22:55, No significant change was found Referred By: Rochelle Hernandez Electronically Signed By:DEANN CISNEROS
[2024-08-09] MEDS: Sodium Chloride Tab 1 GM TABLET PO (03:02)
--- NOTE | 2024-08-09 03:06 | PC.NURSE ---
pt medicated per mar, tolerated well with water. pt placed on tele 75-76bpm.
[2024-08-09] MEDS: ondansetron HCL 4 MG/2 ML VIAL IVPUSH ×2 (04:00→12:07)
--- NOTE | 2024-08-09 04:01 | PC.NURSE ---
pt ambulated to bathroom with steady gait, unable to void. pt noted to be throwing up, pt medicated per mar.
--- NOTE | 2024-08-09 05:18 | PM.IMHP ---
History of Present Illness Date of Service: 08/09/24 Chief Complaint: Anxiety This is a 78-year-old female with pertinent history of generalized anxiety disorder, major cognitive disorder, mixed hyperlipidemia, gastroesophageal reflux disease, hypertension who presents to the emergency department for evaluation of anxiety and panic attacks. This is patient's 4th ER visit in 2 days. States she has been having increasing anxiety with frequent panic attacks. States this raises her blood pressure and she wants medication for her anxiety and blood pressure. Patient was prescribed metoprolol by previous ER provider but states she was not able to pick it up. Patient is specifically asking for Xanax her anxiety. No fever, chills, chest discomfort, palpitations, shortness of breath, abdominal pain, changes in urinary or bowel habits. In the emergency department, sodium was found to be 126. Patient was seen causing herself to vomit in the ER. Review of Systems Constitutional: Constitutional: Reports no additional constitutional complaints Cardiovascular: Cardiovascular: Reports no additional cardiovascular complaints Respiratory: Respiratory: Reports no additional respiratory complaints Gastrointestinal: Gastrointestinal: Reports no additional gastrointestinal complaints Genitourinary: Genitourinary: Reports no additional female genitourinary complaints Psychiatric: Psychiatric: Reports anxiety [facility] Medical History Bleeding hemorrhoids Essential hypertension PVC (premature ventricular contraction) PAC (premature atrial contraction) SVT (supraventricular tachycardia) Chronic constipation High blood pressure Vertigo Dementia Arthritis Anxiety Pertinent family history: Not significant due to age Surgical History No pertinent past surgical history Social History Alcohol intake: never Patient Tobacco Use Status: Never used Tobacco Advance Directives Date on File: 01/28/24 Meds Allergies Allergy/AdvReac Type Severity Reaction Status Date / Time penicillin G [Penicillin G] Allergy Severe ITCHY/RASH Verified 08/08/24 22:23 Sulfa (Sulfonamide Allergy Severe ITCHY,RASH, Verified 08/08/24 22:23 Antibiotics) rash [Sulfa (Sulfonamides)] trimethoprim [From Bactrim] Allergy Severe HIVES Verified 08/08/24 22:23 Home Medications ?Medication ?Instructions ?Recorded ?Confirmed ?Last Taken ?Type mirtazapine 45 mg tablet 45 mg PO BEDTIME 08/09/20 02/09/24 Unknown History omeprazole 20 mg tablet,delayed 20 mg PO DAILY 08/09/20 02/09/24 Unknown History release alprazolam 0.5 mg tablet 0.5 mg PO QID PRN Anxiety 01/28/24 02/09/24 Unknown History aspirin 81 mg tablet,delayed 81 mg PO QAM 01/28/24 02/09/24 Unknown History release bisacodyl 5 mg tablet,delayed 5 mg PO DAILY PRN constipation 01/28/24 02/09/24 Unknown History release cholecalciferol (vitamin D3) 25 25 mcg PO BID 01/28/24 02/09/24 Unknown History mcg (1,000 unit) tablet diphenhydramine HCl 25 mg tablet 25 mg PO BEDTIME PRN itch 01/28/24 02/09/24 Unknown History (Lou-Dryl) ferrous sulfate 325 mg (65 mg 325 mg PO DAILY 01/28/24 02/09/24 Unknown History iron) tablet (FeroSul) melatonin 10 mg tablet,extended 10 mg PO BEDTIME PRN Insomnia 01/28/24 02/09/24 Unknown History release multivitamin 1 tab PO QAM 01/28/24 02/09/24 Unknown History rosuvastatin 20 mg tablet 20 mg PO QPM 01/28/24 02/09/24 Unknown History sertraline 100 mg tablet 100 mg PO DAILY 01/28/24 02/09/24 Unknown History trazodone 50 mg tablet 50 mg PO BEDTIME 01/28/24 02/09/24 Unknown History amlodipine 10 mg tablet 10 mg PO DAILY 02/09/24 02/09/24 Unknown History Physical Exam Vital Signs and Narrative: Vital Signs: Last Vital Signs Temp 98.9 F 08/09/24 04:00 Pulse 78 08/09/24 04:00 Resp 16 08/09/24 04:00 BP 158/99 H 08/09/24 04:00 Pulse Ox 98 08/09/24 04:00 O2 Del Method Room Air 08/09/24 04:00 BMI result Body Mass Index 28.0 Elderly female lying in bed in no distress Neck supple, no JVD Regular rate and rhythm, S1-S2 heard Regular breath sounds bilaterally, no wheezing or crackles appreciated Abdomen soft nontender, no guarding, no rigidity Patient is awake, alert and oriented x2 ; no focal motor deficit Psych: Anxious with pressured speech No pedal edema Results Labs 08/08/24 22:32 08/09/24 02:09 Labs: Laboratory Results - last 24 hr 08/08/24 08/09/24 22:32 02:09 MCV 81.8 MCH 28.8 MCHC 35.2 H RDW 13.8 Plt Count 324 MPV 7.9 L Immature Gran % (Auto) 0.5 H Neut % (Auto) 80.2 H Lymph % (Auto) 13.0 L [place] % (Auto) 5.8 Eos % (Auto) 0.2 Baso % (Auto) 0.3 Lymph # (Auto) 1.3 [place] # (Auto) 0.6 Eos # (Auto) 0.0 Baso # (Auto) 0.0 Abs Immat Gran (auto) 0.05 H Absolute Neuts (auto) 7.9 Absolute Nucleated RBC 0.000 Nucleated RBC % (auto) 0.0 Anion Gap 16 17 Estim Creat Clear Calc 55.2 51.3 Estimated GFR 59 54 Random Glucose 133 H 129 H Calcium 10.3 H D 10.1 Total Bilirubin 0.5 AST 25 ALT 17 Alkaline Phosphatase 78 Total Protein 8.9 H Albumin 4.6 Influenza Type A (PCR) NEGATIVE Influenza Type B (PCR) NEGATIVE RSV RNA Qual (PCR) NEGATIVE SARS-CoV-2 RNA (RT-PCR) NEGATIVE Assessment and Plan (1) Acute hyponatremia: Status: Acute Plan This is a 78-year-old female with pertinent history of generalized anxiety disorder, major cognitive disorder, mixed hyperlipidemia, gastroesophageal reflux disease, hypertension who presents to the emergency department for evaluation of anxiety and panic attacks. #. Acute hypotonic hyponatremia: Urine studies pending. Closely monitor serum sodium #. Uncontrolled anxiety with frequent panic attacks: Consulted psych to optimize. Psychiatry note 01/28/24 : Her ability to comprehend and retain information is limited. She does NOT have capacity to make decisions and does require significant support coordinating medical care and making decisions on her behalf. In addition, it has been of concern that pt usually comes on her own, unable to retain information given at different times of the day and night. Capacity is NOT expected to be regained and recommend MD to invoke HCP. #. Hypertension: Continue home antihypertensives #. Mixed hyperlipidemia: On statin #. Gastroesophageal reflux disease: On PPI #. Major cognitive disorder: Maintain sleep-wake cycle Med rec pending DVT prophylaxis: Lovenox Full code Quality Stroke Does the patient have a stroke diagnosis?: No VTE Prior VTE?: No VTE Risk Level:: Medical - moderate - high VTE Device Contraindication: Treatment Not Indicated VTE Drug Contraindication: N/A - Med Ordered
[2024-08-09 05:26] LABS: Glucose, Whole Blood 122 mg/dL (60-115)
[2024-08-09 06:09] LABS: Osmolality, Serum 273 mosm/kg (281-305)
--- NOTE | 2024-08-09 06:37 | PC.NURSE ---
pt assisted to bathroom, pt ambulated with steady gait, urine sample obtained.
[2024-08-09 07:02] LABS: Appearance Urine Clear; Color Urine Yellow; Glucose Urine UA Negative (Negative); Leukocyte Esterase Urine Moderate (2+) (Negative); Nitrite Urine Negative (Negative); Specific Gravity - Urine 1.015 (1.005-1.025); UMIC TRIGGER UACC YES; Urine Blood Negative (Negative); Urine Ketones Trace mg/dL (Negative); Urine Protein 30 (1+) mg/dL (Neg-Trace)
[2024-08-09 07:05] LABS: Bacteria Urine None Seen (None Seen); Hyaline Casts Urine 0-2 /LPF (0-2); RBC Urine 0-2 /HPF (0-2); Squamous Epithelial Cell Urine 0-2 /HPF (0-2); UACC Culture Trigger YES; WBC Urine 21-50 /HPF (0-5)
[2024-08-09 07:14] LABS: Osmolality Urine 478 mosm/kg (373-1093)
[2024-08-09 07:23] LABS: Creatinine Urine 63.79 mg/dL
--- NOTE | 2024-08-09 09:35 | PHA.MEDREC ---
Pharmacy Consult ? Medication Reconciliation Pharmacy has completed the medication reconciliation. Utilized interpretor, Lurdes, to speak with patient. She was a poor historian and answered yes when asked about each medication, and says she just takes everything in her med box. Tamsulosin was removed from her med list, as it has not been filled since 04/26/24 according to her pharmacy, [facility].
--- NOTE | 2024-08-09 09:43 | HO.PM.IMPN ---
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 Anxious. Na 126. No n/v, seizures. Reports she does not drink a lot of water Review of Systems Review of Systems: Yes all other systems are reviewed and are negative Physical Exam Vital Signs: Vital Signs: Last Vital Signs Temp 97.7 F 08/09/24 09:27 Pulse 79 08/09/24 09:27 Resp 20 08/09/24 09:27 BP 163/87 H 08/09/24 09:27 Pulse Ox 96 08/09/24 09:27 O2 Del Method Room Air 08/09/24 09:27 BMI result Body Mass Index 28.0 Constitutional - Awake and Alert, No apparent distress Eyes - PERRLA, EOMI Cardiovascular - S1S2, RRR, No edema Respiratory - Normal lung expansion, Normal respiratory effort, No respiratory distress, CTA bilaterally Gastrointestinal - NT / ND; +BS; No rebound or guarding Extremities - no calf tenderness bilaterally, no swelling Skin - Warm/Dry Neurological - Alert & oriented to self Psychological - Appropriate affect Objective Data Active Medications Acetaminophen (Acetaminophen 325 Mg Tablet) 650 mg PO Q6H PRN PRN Reason: Pain, Mild (Pain Scale 1-3), fever or headache Alprazolam (Alprazolam 0.5 Mg Tablet) 0.5 mg PO TID PRN PRN Reason: anxiety Calcium Carbonate (Calcium Carbonate 750 Mg Tab.Chew) 750 mg PO Q4H PRN PRN Reason: Heartburn Enoxaparin Sodium (Enoxaparin Sodium 40 Mg/0.4 Ml Syringe) 40 mg SUBCUT Q24H [facility] Last Admin: 08/09/24 09:13 Dose: Not Given Documented By: COTEMA Non-Admin Reason: Patient Refused Magnesium Hydroxide (Milk Of Magnesia 30 Ml Oral.Susp) 30 ml PO DAILY PRN PRN Reason: Constipation Melatonin (Melatonin 3 Mg Tablet) 6 mg PO BEDTIME PRN PRN Reason: Insomnia Ondansetron HCl (Ondansetron Hcl 4 Mg/2 Ml Vial) 4 mg IVPUSH Q8H PRN PRN Reason: Nausea and Vomiting Sodium Chloride (0.9 % Sodium Chloride Flush 3 Ml Syringe) 3 ml IVFLUSH QSHIFT [facility] Last Admin: 08/09/24 07:32 Dose: Not Given Documented By: SUZAN Non-Admin Reason: See Note Labs 08/08/24 22:32 08/09/24 09:29 Labs: Laboratory Results - last 24 hr 08/08/24 08/09/24 08/09/24 22:32 02:09 05:21 MCV 81.8 MCH 28.8 MCHC 35.2 H RDW 13.8 Plt Count 324 MPV 7.9 L Immature Gran % (Auto) 0.5 H Neut % (Auto) 80.2 H Lymph % (Auto) 13.0 L [place] % (Auto) 5.8 Eos % (Auto) 0.2 Baso % (Auto) 0.3 Lymph # (Auto) 1.3 [place] # (Auto) 0.6 Eos # (Auto) 0.0 Baso # (Auto) 0.0 Abs Immat Gran (auto) 0.05 H Absolute Neuts (auto) 7.9 Absolute Nucleated RBC 0.000 Nucleated RBC % (auto) 0.0 Anion Gap 16 17 Estim Creat Clear Calc 55.2 51.3 Estimated GFR 59 54 POC Glucose 122 H Random Glucose 133 H 129 H Osmolality Calcium 10.3 H D 10.1 Total Bilirubin 0.5 AST 25 ALT 17 Alkaline Phosphatase 78 Total Protein 8.9 H Albumin 4.6 Urine Color Urine Appearance Urine pH Ur Specific [place] Urine Protein Urine Glucose (UA) Urine Ketones Urine Blood Urine Nitrite Ur Leukocyte Esterase Urine RBC Urine WBC Ur Squamous Epith Cells Urine Bacteria Hyaline Casts Urine Osmolality Ur Random Sodium Urine Creatinine Influenza Type A (PCR) NEGATIVE Influenza Type B (PCR) NEGATIVE RSV RNA Qual (PCR) NEGATIVE SARS-CoV-2 RNA (RT-PCR) NEGATIVE 08/09/24 08/09/24 05:52 06:33 MCV MCH MCHC RDW Plt Count MPV Immature Gran % (Auto) Neut % (Auto) Lymph % (Auto) [place] % (Auto) Eos % (Auto) Baso % (Auto) Lymph # (Auto) [place] # (Auto) Eos # (Auto) Baso # (Auto) Abs Immat Gran (auto) Absolute Neuts (auto) Absolute Nucleated RBC Nucleated RBC % (auto) Anion Gap Estim Creat Clear Calc Estimated GFR POC Glucose Random Glucose Osmolality 273 L Calcium Total Bilirubin AST ALT Alkaline Phosphatase Total Protein Albumin Urine Color Yellow Urine Appearance Clear Urine pH 7.0 Ur Specific [place] 1.015 Urine Protein 30 (1+) H Urine Glucose (UA) Negative Urine Ketones Trace Urine Blood Negative Urine Nitrite Negative Ur Leukocyte Esterase Moderate (2+) H Urine RBC 0-2 Urine WBC 21-50 H Ur Squamous Epith Cells 0-2 Urine Bacteria None Seen Hyaline Casts 0-2 Urine Osmolality 478 Ur Random Sodium 82.0 Urine Creatinine 63.79 Influenza Type A (PCR) Influenza Type B (PCR) RSV RNA Qual (PCR) SARS-CoV-2 RNA (RT-PCR) Assessment and Plan (1) Acute hyponatremia: Status: Acute Plan 78-year-old female with pertinent history of generalized anxiety disorder, major cognitive disorder, mixed hyperlipidemia, gastroesophageal reflux disease, hypertension who presents to the emergency department for evaluation of anxiety and panic attacks. 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 Ur sodium 82 -hold sertraline -fluid restrictions -nephro consult #Uncontrolled anxiety with frequent panic attacks -hold sertraline due to above -Consulted psych to optimize. -Psychiatry note 01/28/24 : Her ability to comprehend and retain information is limited. She does NOT have capacity to make decisions and does require significant support coordinating medical care and making decisions on her behalf. In addition, it has been of concern that pt usually comes on her own, unable to retain information given at different times of the day and night. Capacity is NOT expected to be regained and recommend MD to invoke HCP. -reduce clonazepam to TID #Hypertension -Continue lisinopril, metoprolol #Mixed hyperlipidemia -continue statin #Gastroesophageal reflux disease -continue PPI #. Major cognitive disorder with mood disorder -maintain sleep-wake cycle -plan as above DVT prophylaxis: Lovenox Full code Patient requires inpatient stay at least 2 midnights due to acute on chronic hyponatremia requiring fluid restrictions, close monitoring of electrolyte levels and expert consultation Quality Stroke Does the patient have a stroke diagnosis?: No VTE Prior VTE?: No VTE Risk Level:: Medical - moderate - high VTE Device Contraindication: Treatment Not Indicated VTE Drug Contraindication: N/A - Med Ordered
[2024-08-09] MEDS: Acetaminophen 325 MG TABLET 650 MG PO (09:58)
[2024-08-09 10:01] LABS: Anion Gap 14 (12-20); Blood Urea Nitrogen 19 mg/dL (9-16); Calcium 9.9 mg/dL (8.4-10.2); Carbon Dioxide 25 mmol/L (22-29); Chloride 91 mmol/L (96-108); Creatinine Clr Calc Pharmacy 54.6; Estimated Glomerular Filt Rate 58; Glucose Random 133 mg/dL (60-115); Potassium 4.1 mmol/L (3.3-5.1); Sodium 126 mmol/L (135-145)
--- NOTE | 2024-08-09 11:17 | MHC.CM.PN ---
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
[2024-08-09] MEDS: diphenhydrAMINE HCL 25 MG CAPSULE PO (11:24)
[2024-08-09] MEDS: Atorvastatin Calcium 80 MG TABLET PO (11:25)
[2024-08-09] MEDS: Cholecalciferol (Vitamin D3) 25 MCG TABLET PO ×2 (11:25→20:41)
[2024-08-09] MEDS: Ferrous Sulfate 324 MG TABLET.DR PO (11:25)
[2024-08-09] MEDS: Multivitamin TABLET 1 TAB PO (11:25)
[2024-08-09] MEDS: Metoprolol Succinate ER 50 MG TAB.ER.24H PO (11:25)
[2024-08-09] MEDS: lisinopriL 20 MG TABLET PO (11:25)
[2024-08-09] MEDS: amLODIPine Besylate 10 MG TABLET PO (11:25)
[2024-08-09] MEDS: Aspirin Enteric Coated 81 MG TABLET.DR PO (11:28)
[2024-08-09] MEDS: hydrOXYzine HCL 25 MG TABLET PO (14:12)
--- NOTE | 2024-08-09 14:14 | PM.CNNEP ---
History of Present Illness Reason for Consult Consult date: 08/09/24 Chief Complaint Chief complaint: Anxiety History of Present Illness Narrative: 78-year-old female with medical history of generalized anxiety disorder, major cognitive disorder, HLD, GERD, HTN who presented to the ER for anxiety and panic attacks, was found to have a sodium of 126 and an episode of vomiting, and was admitted for management. serum sodium remains at 126 today (2a.m. and 9:30 a.m.); chronic hyponatremia since 2019 (usually in low to mid 130s). urine osmolality 478, urine sodium 82 was on high dose of sertraline (100mg daily) fluid restriction in place and sertraline being held (pt also on mirtazapine and trazodone for anxiety management) she denies current nausea, vomiting, muscle cramps pt has some cognitive impairment at baseline, is currently oriented at bedside she states she is hot but otherwise feeling well denies urinary symptoms endorses adequate nutrition renal function is at her baseline (Cr 0.93, GFR 54) Review of Systems Constitutional: Denies fatigue and Denies headache(s) Eyes: Denies blurry vision Denies dizziness and Denies headache(s) Cardiovascular: Denies chest pain, Denies leg edema and Denies dyspnea on exertion Respiratory: Reports no additional respiratory complaints and Denies dyspnea on exertion Gastrointestinal: Denies abdominal pain and Denies diarrhea Genitourinary: Denies hematuria, Denies difficulty voiding, Denies pelvic pain, Denies flank pain, Denies urinary incontinence and Denies urinary urgency Musculoskeletal: Denies muscle cramps Skin/Breast: Denies rash Denies dizziness and Denies headache(s) Psychiatric: Reports as per HPI and Reports anxiety Endocrine: Denies fatigue PMFSH Past Medical History Medical History Bleeding hemorrhoids Essential hypertension PVC (premature ventricular contraction) PAC (premature atrial contraction) SVT (supraventricular tachycardia) Chronic constipation High blood pressure Vertigo Dementia Arthritis Anxiety Surgical History Surgical History No pertinent past surgical history Social History Social History Household Members: Other Household Members Other:: son Housing: Apartment Do you presently have visiting nurse or 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 (food chemist) Alcohol intake: never Patient Tobacco Use Status: Never used Tobacco Smoked in Last 30 Days: No Use of substances other than those prescribed or required for medical reasons: No Currently Displaying Signs/Symptoms of Drug Intoxication Withdrawal: No Have you been hit, kicked, punched, or otherwise hurt by someone within the past year? If so, by whom?: No Do you feel safe in your current relationship?: No Current Relationship Is there a partner from a previous relationship who is making you feel unsafe now?: No Are you made to feel afraid or neglected: No Advance Directives: Yes Advance Directives Information Provided: Yes Advance Directives on File: Yes Advance Directives Date on File: 01/28/24 Do you have a plan to hurt others: No Plan Recently lost weight without trying: No Eating poorly because of decreased appetite: No Nutrition Risks: No Nutritional Risk Patient : No : No Poor oral hygiene: No service: No Meds Allergies Allergy/AdvReac Type Severity Reaction Status Date / Time penicillin G [Penicillin G] Allergy Severe ITCHY/RASH Verified 08/08/24 22:23 Sulfa (Sulfonamide Allergy Severe ITCHY,RASH, Verified 08/08/24 22:23 Antibiotics) rash [Sulfa (Sulfonamides)] trimethoprim [From Bactrim] Allergy Severe HIVES Verified 08/08/24 22:23 Active Medications: Current Medications Acetaminophen (Acetaminophen 325 Mg Tablet) 650 mg PO Q6H PRN PRN Reason: Pain, Mild (Pain Scale 1-3), fever or headache Last Admin: 08/09/24 09:58 Dose: 650 mg Alprazolam (Alprazolam 0.5 Mg Tablet) 0.5 mg PO TID PRN PRN Reason: anxiety Last Admin: 08/09/24 09:58 Dose: 0.5 mg Amlodipine Besylate (Amlodipine Besylate 10 Mg Tablet) 10 mg PO DAILY [facility]; Protocol Last Admin: 08/09/24 11:25 Dose: 10 mg Aspirin (Aspirin Enteric Coated 81 Mg Tablet.Dr) 81 mg PO DAILY [facility] Last Admin: 08/09/24 11:28 Dose: 81 mg Atorvastatin Calcium (Atorvastatin Calcium 80 Mg Tablet) 80 mg PO DAILY [facility] Last Admin: 08/09/24 11:25 Dose: 80 mg Bisacodyl (Bisacodyl 5 Mg Tablet.) 5 mg PO DAILY PRN PRN Reason: constipation Calcium Carbonate (Calcium Carbonate 750 Mg Tab.Chew) 750 mg PO Q4H PRN PRN Reason: Heartburn Diphenhydramine HCl (Diphenhydramine Hcl 25 Mg Capsule) 25 mg PO BEDTIME PRN PRN Reason: itch Enoxaparin Sodium (Enoxaparin Sodium 40 Mg/0.4 Ml Syringe) 40 mg SUBCUT Q24H [facility] Last Admin: 08/09/24 09:13 Dose: Not Given Ferrous Sulfate (Ferrous Sulfate 324 Mg Tablet.) 324 mg PO DAILY [facility] Last Admin: 08/09/24 11:25 Dose: 324 mg Fluticasone Propionate (Fluticasone Propionate Nasal 16 Gm Madeline) 2 spray NOSTRIL-B DAILY [facility] Last Admin: 08/09/24 11:40 Dose: Not Given Hydroxyzine HCl (Hydroxyzine Hcl 25 Mg Tablet) 25 mg PO TID PRN PRN Reason: anxiety Last Admin: 08/09/24 14:12 Dose: 25 mg Ipratropium [place] (Ipratropium [place] Javed 0.03 % 30 Ml Madeline) 2 spray NOSTRIL-B BID [facility] Last Admin: 08/09/24 11:39 Dose: Not Given Lisinopril (Lisinopril 20 Mg Tablet) 20 mg PO DAILY [facility]; Protocol Last Admin: 08/09/24 11:25 Dose: 20 mg Magnesium Hydroxide (Milk Of Magnesia 30 Ml Oral.Susp) 30 ml PO DAILY PRN PRN Reason: Constipation Melatonin (Melatonin 3 Mg Tablet) 6 mg PO BEDTIME PRN PRN Reason: Insomnia Melatonin (Melatonin 3 Mg Tablet) 9 mg PO BEDTIME PRN PRN Reason: Insomnia Metoprolol Succinate (Metoprolol Succinate Er 50 Mg Tab.Er.24h) 50 mg PO DAILY [facility]; Protocol Last Admin: 08/09/24 11:25 Dose: 50 mg Mirtazapine (Mirtazapine 15 Mg Tablet) 45 mg PO BEDTIME [facility] Multivitamins/Vitamin C (Multivitamin Tablet) 1 tab PO DAILY [facility] Last Admin: 08/09/24 11:25 Dose: 1 tab Omeprazole (Omeprazole 20 Mg Capsule.) 20 mg PO DAILY@0630 [facility] Ondansetron HCl (Ondansetron Hcl 4 Mg/2 Ml Vial) 4 mg IVPUSH Q8H PRN PRN Reason: Nausea and Vomiting Last Admin: 08/09/24 12:07 Dose: 4 mg Ondansetron HCl (Ondansetron Odt 4 Mg Tab.Rapdis) 4 mg TRANSLINGU Q6H PRN PRN Reason: nausea and vomiting Sodium Chloride (0.9 % Sodium Chloride Flush 3 Ml Syringe) 3 ml IVFLUSH QSHIFT [facility] Last Admin: 08/09/24 07:32 Dose: Not Given Trazodone HCl (Trazodone Hcl 50 Mg Tablet) 50 mg PO BEDTIME [facility] Vitamin D (Cholecalciferol (Vitamin D3) 25 Mcg Tablet) 25 mcg PO BID [facility] Last Admin: 08/09/24 11:25 Dose: 25 mcg Zolpidem Tartrate (Zolpidem Tartrate 5 Mg Tablet) 5 mg PO BEDTIME PRN PRN Reason: Insomnia Home Medications ?Medication ?Instructions ?Recorded ?Confirmed ?Last Taken ?Type mirtazapine 45 mg tablet 45 mg PO BEDTIME 08/09/20 08/09/24 08/08/24 History omeprazole 20 mg tablet,delayed 20 mg PO DAILY@0630 08/09/20 08/09/24 08/08/24 History release alprazolam 0.5 mg tablet 0.5 mg PO QID PRN Anxiety 01/28/24 08/09/24 08/08/24 History aspirin 81 mg tablet,delayed 81 mg PO QAM 01/28/24 08/09/24 08/08/24 History release bisacodyl 5 mg tablet,delayed 5 mg PO DAILY PRN constipation 01/28/24 08/09/24 08/08/24 History release cholecalciferol (vitamin D3) 25 25 mcg PO BID 01/28/24 08/09/24 08/08/24 History mcg (1,000 unit) tablet diphenhydramine HCl 25 mg tablet 25 mg PO BEDTIME PRN itch 01/28/24 08/09/24 08/08/24 History (Lou-Dryl) ferrous sulfate 325 mg (65 mg 325 mg PO DAILY 01/28/24 08/09/24 08/08/24 History iron) tablet (FeroSul) melatonin 10 mg tablet,extended 10 mg PO BEDTIME PRN Insomnia 01/28/24 08/09/24 08/08/24 History release multivitamin 1 tab PO QAM 01/28/24 08/09/24 08/08/24 History rosuvastatin 20 mg tablet 20 mg PO BEDTIME 01/28/24 08/09/24 08/08/24 History sertraline 100 mg tablet 100 mg PO DAILY 01/28/24 08/09/24 08/08/24 History trazodone 50 mg tablet 50 mg PO BEDTIME 01/28/24 08/09/24 08/08/24 History amlodipine 10 mg tablet 10 mg PO DAILY 02/09/24 08/09/24 08/08/24 History acetaminophen 500 mg tablet 500 mg PO Q8H PRN pain 08/09/24 08/09/24 08/08/24 History ipratropium bromide 21 mcg (0.03 2 spray intranasal BID 08/09/24 08/09/24 08/08/24 History %) nasal spray lisinopril 20 mg tablet 20 mg PO DAILY 08/09/24 08/09/24 08/08/24 History zolpidem 5 mg tablet 5 mg PO BEDTIME PRN Insomnia 08/09/24 08/09/24 08/08/24 History Physical Exam Vital Signs: Last Vital Signs Temp 98.3 F 08/09/24 11:56 Pulse 97 08/09/24 11:56 Resp 18 08/09/24 11:56 BP 168/78 H 08/09/24 11:56 Pulse Ox 94 08/09/24 11:56 O2 Del Method Room Air 08/09/24 11:56 BMI result Body Mass Index 28.0 Const General: comfortable and no acute distress Orientation/consciousness: oriented to person, oriented to place and oriented to time Neck Neck: Yes no JVD Resp Effort & Inspection: able to speak in complete sentences Auscultation: clear to auscultation bilaterally Cardio Jugular venous distension: no JVD Rate: regular rate Rhythm: regular rhythm Heart sounds: S1 normal heart sound present and S2 normal heart sound present GI Palpation (GI): Soft to palpation and nontender Rectal Exam - Female: No tenderness General: Yes no CVA tenderness Back/Spine/Pelvis Back: no CVA tenderness Skin Rashes: no rashes Wounds: amputation site Neuro General: oriented to person, oriented to place and oriented to time Extrem General: Yes normal to inspection, No edema and No pedal edema Results Lab Results 08/08/24 22:32 08/09/24 09:29 Lab results: Chemistry 08/08/24 08/09/24 08/09/24 22:32 02:09 09:29 Sodium 127 L 126 L 126 L Potassium 4.4 4.4 4.1 Carbon Dioxide 24 21 L 25 BUN 20 H 20 H 19 H Creatinine 0.92 0.99 0.93 Calcium 10.3 H D 10.1 9.9 Hematology 08/08/24 22:32 WBC 9.9 Hgb 12.8 Plt Count 324 Urinalysis 08/09/24 06:33 Urine Color Yellow Urine Appearance Clear Urine pH 7.0 Ur Specific [place] 1.015 Urine Protein 30 (1+) H Urine Glucose (UA) Negative Urine Ketones Trace Urine Blood Negative Urine Nitrite Negative Ur Leukocyte Esterase Moderate (2+) H Urine RBC 0-2 Urine WBC 21-50 H Ur Squamous Epith Cells 0-2 Hyaline Casts 0-2 Urine Studies 08/09/24 06:33 Urine Osmolality 478 Urine Creatinine 63.79 Assessment and Plan (1) Acute hyponatremia: Status: Acute (2) CKD stage 3a, GFR 45-59 ml/min: Status: Acute Plan chronic hyponatremia likely secondary to SIADH from antidepressent medication, currently asymptomatic recommend continuing to hold sertraline, recommend following psychiatric recommendations for further medication adjustment if anxiety worsens due to medication adjustment continue with free water restriction 1.2L of water per 24 hours ensure management of nausea, vomiting, PRN antiemetics if symptoms return since nausea is a potent stimulus for ADH release Continue to follow serum electrolytes and renal function, should monitor serum sodium every 12 hours, should not increase sodium level more than 10mmol in 24 hour period or 0.5mmol/L/hr Discussed with Dr Erazo. Procedures Date of Service Date of Service: 08/09/24
--- NOTE | 2024-08-09 14:28 | P.CNPS_ITS ---
History of Present Illness Date of Service: 08/09/24 Chief Complaint: Anxiety Reason for Consult: anxiety and panic attacks HPI Narrative: per 08/09 hospitalist progress note: 78-year-old female with pertinent history of generalized anxiety disorder, major cognitive disorder, mixed hyperlipidemia, gastroesophageal reflux disease, hypertension who presents to the emergency department for evaluation of anxiety and panic attacks. 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 Ur sodium 82 -hold sertraline -fluid restrictions -nephro consult #Uncontrolled anxiety with frequent panic attacks -hold sertraline due to above -Consulted psych to optimize. -Psychiatry note 01/28/24 : Her ability to comprehend and retain information is limited. She does NOT have capacity to make decisions and does require significant support coordinating medical care and making decisions on her behalf. In addition, it has been of concern that pt usually comes on her own, unable to retain information given at different times of the day and night. Capacity is NOT expected to be regained and recommend MD to invoke HCP. -reduce clonazepam to TID #Hypertension -Continue lisinopril, metoprolol #Mixed hyperlipidemia -continue statin #Gastroesophageal reflux disease -continue PPI #. Major cognitive disorder with mood disorder -maintain sleep-wake cycle -plan as above * PSYCH pt seen with park interpreter. denies safety concerns. need to DC zoloft explained. pt agreed to DC zoloft and start gabapentin trial instead. Past Psychiatric History: Patient is followed by Eliazar at [facility] and has been prescribed alprazolam 0.5mg TID for quite some time. She has been evaluated by crisis services multiple times when in [facility] and has not been found to meet LOC for psychiatric admission, but disposition recommendation has been to refer to [facility]. [facility] Medical History Bleeding hemorrhoids Essential hypertension PVC (premature ventricular contraction) PAC (premature atrial contraction) SVT (supraventricular tachycardia) Chronic constipation High blood pressure Vertigo Dementia Arthritis Anxiety Surgical History No pertinent past surgical history Social History: As reported in previous section Trauma History: Not reviewed Diagnostics Vital Signs (24Hr): Vital Signs - 24 hr 08/08/24 22:21 08/09/24 02:10 08/09/24 04:00 Temperature 99.0 F 98.7 F 98.9 F Pulse Rate 78 79 78 Respiratory Rate 20 18 16 Blood Pressure 152/63 H 164/98 H 158/99 H Pulse Oximetry 96 98 98 Oxygen Delivery Method Room Air Room Air Room Air 08/09/24 05:16 08/09/24 09:27 08/09/24 11:56 Temperature 98.3 F 97.7 F 98.3 F Pulse Rate 100 79 97 Respiratory Rate 18 20 18 Blood Pressure 162/85 H 163/87 H 168/78 H Pulse Oximetry 93 96 94 Oxygen Delivery Method Room Air Room Air Room Air BMI result Body Mass Index 28.0 Labs 08/08/24 22:32 08/09/24 09:29 Labs: Laboratory Results - last 48 hr 08/08/24 08/09/24 08/09/24 22:32 02:09 05:21 WBC 9.9 RBC 4.45 Hgb 12.8 Hct 36.4 L MCV 81.8 MCH 28.8 MCHC 35.2 H RDW 13.8 Plt Count 324 MPV 7.9 L Immature Gran % (Auto) 0.5 H Neut % (Auto) 80.2 H Lymph % (Auto) 13.0 L [place] % (Auto) 5.8 Eos % (Auto) 0.2 Baso % (Auto) 0.3 Lymph # (Auto) 1.3 [place] # (Auto) 0.6 Eos # (Auto) 0.0 Baso # (Auto) 0.0 Abs Immat Gran (auto) 0.05 H Absolute Neuts (auto) 7.9 Absolute Nucleated RBC 0.000 Nucleated RBC % (auto) 0.0 Sodium 127 L 126 L Potassium 4.4 4.4 Chloride 91 L 92 L Carbon Dioxide 24 21 L Anion Gap 16 17 BUN 20 H 20 H Creatinine 0.92 0.99 Estim Creat Clear Calc 55.2 51.3 Estimated GFR 59 54 POC Glucose 122 H Random Glucose 133 H 129 H Osmolality Calcium 10.3 H D 10.1 Total Bilirubin 0.5 AST 25 ALT 17 Alkaline Phosphatase 78 Total Protein 8.9 H Albumin 4.6 Urine Color Urine Appearance Urine pH Ur Specific [place] Urine Protein Urine Glucose (UA) Urine Ketones Urine Blood Urine Nitrite Ur Leukocyte Esterase Urine RBC Urine WBC Ur Squamous Epith Cells Urine Bacteria Hyaline Casts Urine Osmolality Ur Random Sodium Urine Creatinine Influenza Type A (PCR) NEGATIVE Influenza Type B (PCR) NEGATIVE RSV RNA Qual (PCR) NEGATIVE SARS-CoV-2 RNA (RT-PCR) NEGATIVE 08/09/24 08/09/24 08/09/24 05:52 06:33 09:29 WBC RBC Hgb Hct MCV MCH MCHC RDW Plt Count MPV Immature Gran % (Auto) Neut % (Auto) Lymph % (Auto) [place] % (Auto) Eos % (Auto) Baso % (Auto) Lymph # (Auto) [place] # (Auto) Eos # (Auto) Baso # (Auto) Abs Immat Gran (auto) Absolute Neuts (auto) Absolute Nucleated RBC Nucleated RBC % (auto) Sodium 126 L Potassium 4.1 Chloride 91 L Carbon Dioxide 25 Anion Gap 14 BUN 19 H Creatinine 0.93 Estim Creat Clear Calc 54.6 Estimated GFR 58 POC Glucose Random Glucose 133 H Osmolality 273 L Calcium 9.9 Total Bilirubin AST ALT Alkaline Phosphatase Total Protein Albumin Urine Color Yellow Urine Appearance Clear Urine pH 7.0 Ur Specific [place] 1.015 Urine Protein 30 (1+) H Urine Glucose (UA) Negative Urine Ketones Trace Urine Blood Negative Urine Nitrite Negative Ur Leukocyte Esterase Moderate (2+) H Urine RBC 0-2 Urine WBC 21-50 H Ur Squamous Epith Cells 0-2 Urine Bacteria None Seen Hyaline Casts 0-2 Urine Osmolality 478 Ur Random Sodium 82.0 Urine Creatinine 63.79 Influenza Type A (PCR) Influenza Type B (PCR) RSV RNA Qual (PCR) SARS-CoV-2 RNA (RT-PCR) Mental Status Exam Mental Status Exam Patient Appearance: Well Grooomed Patient Orientation: Person, Place and Time Level of Consciousness: Awake Patient Behavior: Appropriate Mood Description: Anxious Affect Description: Calm Patient Cognition Impaired: Yes Ability to Follow Directions: Fair Speech Pattern: Clear Memory Description: Recent Impaired Hallucinations: None Delusions: Not Present Thought Process: Goal Oriented Judgement: Poor Medications Medications Current Medications Acetaminophen (Acetaminophen 325 Mg Tablet) 650 mg PO Q6H PRN PRN Reason: Pain, Mild (Pain Scale 1-3), fever or headache Last Admin: 08/09/24 09:58 Dose: 650 mg Amlodipine Besylate (Amlodipine Besylate 10 Mg Tablet) 10 mg PO DAILY [facility]; Protocol Last Admin: 08/09/24 11:25 Dose: 10 mg Aspirin (Aspirin Enteric Coated 81 Mg Tablet.) 81 mg PO DAILY [facility] Last Admin: 08/09/24 11:28 Dose: 81 mg Atorvastatin Calcium (Atorvastatin Calcium 80 Mg Tablet) 80 mg PO DAILY [facility] Last Admin: 08/09/24 11:25 Dose: 80 mg Bisacodyl (Bisacodyl 5 Mg Tablet.) 5 mg PO DAILY PRN PRN Reason: constipation Calcium Carbonate (Calcium Carbonate 750 Mg Tab.Chew) 750 mg PO Q4H PRN PRN Reason: Heartburn Clonazepam (Clonazepam 0.5 Mg Tablet) 0.5 mg PO TID [facility] Diphenhydramine HCl (Diphenhydramine Hcl 25 Mg Capsule) 25 mg PO BEDTIME PRN PRN Reason: itch Enoxaparin Sodium (Enoxaparin Sodium 40 Mg/0.4 Ml Syringe) 40 mg SUBCUT Q24H [facility] Last Admin: 08/09/24 09:13 Dose: Not Given Ferrous Sulfate (Ferrous Sulfate 324 Mg Tablet.) 324 mg PO DAILY [facility] Last Admin: 08/09/24 11:25 Dose: 324 mg Fluticasone Propionate (Fluticasone Propionate Nasal 16 Gm [place]) 2 spray NOSTRIL-B DAILY [facility] Last Admin: 08/09/24 11:40 Dose: Not Given Gabapentin (Gabapentin 100 Mg Capsule) 100 mg PO TID [facility] Hydroxyzine HCl (Hydroxyzine Hcl 25 Mg Tablet) 25 mg PO TID PRN PRN Reason: anxiety Last Admin: 08/09/24 14:12 Dose: 25 mg Ipratropium [place] (Ipratropium [place] Javed 0.03 % 30 Ml [place]) 2 spray NOSTRIL-B BID [facility] Last Admin: 08/09/24 11:39 Dose: Not Given Lisinopril (Lisinopril 20 Mg Tablet) 20 mg PO DAILY [facility]; Protocol Last Admin: 08/09/24 11:25 Dose: 20 mg Magnesium Hydroxide (Milk Of Magnesia 30 Ml Oral.Susp) 30 ml PO DAILY PRN PRN Reason: Constipation Melatonin (Melatonin 3 Mg Tablet) 6 mg PO BEDTIME PRN PRN Reason: Insomnia Melatonin (Melatonin 3 Mg Tablet) 9 mg PO BEDTIME PRN PRN Reason: Insomnia Metoprolol Succinate (Metoprolol Succinate Er 50 Mg Tab.Er.24h) 50 mg PO DAILY [facility]; Protocol Last Admin: 08/09/24 11:25 Dose: 50 mg Mirtazapine (Mirtazapine 15 Mg Tablet) 45 mg PO BEDTIME [facility] Multivitamins/Vitamin C (Multivitamin Tablet) 1 tab PO DAILY [facility] Last Admin: 08/09/24 11:25 Dose: 1 tab Omeprazole (Omeprazole 20 Mg Capsule.Dr) 20 mg PO DAILY@629 [facility] Ondansetron HCl (Ondansetron Hcl 4 Mg/2 Ml Vial) 4 mg IVPUSH Q8H PRN PRN Reason: Nausea and Vomiting Last Admin: 08/09/24 12:07 Dose: 4 mg Ondansetron HCl (Ondansetron Odt 4 Mg Tab.Rapdis) 4 mg TRANSLINGU Q6H PRN PRN Reason: nausea and vomiting Sodium Chloride (0.9 % Sodium Chloride Flush 3 Ml Syringe) 3 ml IVFLUSH QSHIFT [facility] Last Admin: 08/09/24 07:32 Dose: Not Given Trazodone HCl (Trazodone Hcl 50 Mg Tablet) 50 mg PO BEDTIME [facility] Vitamin D (Cholecalciferol (Vitamin D3) 25 Mcg Tablet) 25 mcg PO BID [facility] Last Admin: 08/09/24 11:25 Dose: 25 mcg Zolpidem Tartrate (Zolpidem Tartrate 5 Mg Tablet) 5 mg PO BEDTIME PRN PRN Reason: Insomnia Allergies Allergies Allergy/AdvReac Type Severity Reaction Status Date / Time penicillin G [Penicillin G] Allergy Severe ITCHY/RASH Verified 08/08/24 22:23 Sulfa (Sulfonamide Allergy Severe ITCHY,RASH, Verified 08/08/24 22:23 Antibiotics) rash [Sulfa (Sulfonamides)] trimethoprim [From Bactrim] Allergy Severe HIVES Verified 08/08/24 22:23 Assessment & Plan Assessment & Plan (1) Acute hyponatremia: Status: Acute Code(s): E87.1 - Hypo-osmolality and hyponatremia (2) Major neurocognitive disorder: Status: Acute Code(s): F03.90 - Unspecified dementia, unspecified severity, without behavioral disturbance, psychotic disturbance, mood disturbance, and anxiety (3) Generalized anxiety disorder with panic attacks: Status: Acute Code(s): F41.1 - Generalized anxiety disorder; F41.0 - Panic disorder [episodic paroxysmal anxiety] Plan hold zoloft as potential cause of hypo-Na. may start gabapentin 100 TID for anxiety instead. trazodone and remeron should be OK and may be continued for now. would consider DC of xanax PRN and placing pt on scheduled klonopin 0.5 mg TID in order to provide more consistent anxiolysis. Total time managing care of this patient today __55__ minutes.
[2024-08-09] MEDS: Gabapentin 100 MG CAPSULE PO ×2 (14:41→20:41)
[2024-08-09] MEDS: clonazePAM 0.5 MG TABLET PO ×2 (14:41→20:41)
[2024-08-09] MEDS: 0.9 % Sodium Chloride Flush 3 ML SYRINGE IVFLUSH ×2 (15:19→20:41)
[2024-08-09 17:42] LABS: Sodium 127 mmol/L (135-145)
[2024-08-09] MEDS: Metoclopramide HCl 10 MG/2 ML VIAL 5 MG IVPUSH (17:47)
[2024-08-09] MEDS: traZODone HCL 50 MG TABLET PO (20:41)
[2024-08-09] MEDS: Mirtazapine 15 MG TABLET 45 MG PO (20:41)
[2024-08-09] MEDS: Ipratropium Bromide Nas 0.03 % 30 ML SPRAY 2 SPRAY NOSTRIL-B (20:44)
[2024-08-10] MEDS: hydrOXYzine HCL 25 MG TABLET PO ×2 (01:51→12:32)
[2024-08-10 03:22] VITALS: BP 139/68; PULSE 87; RESP 18; TEMP 36.4; O2SAT 92
[2024-08-10 05:31] LABS: MANUAL DIFF FLAG NO
[2024-08-10 05:32] LABS: Basophils Absolute Auto 0.1 X10*3/uL (0.0-0.2); Basophils Percent Auto 0.5 % (0-2); Eosinophils Percent Auto 0.2 % (0-4); Hematocrit 37.1 % (37.0-47.0); Hemoglobin 12.9 g/dl (12.0-16.0); Imm Gran Abs Auto 0.06 X10*3/uL (0.00-0.03); Imm Gran Pct Auto 0.6 % (0.0-0.4); Lymphocytes Absolute Auto 1.9 X10*3/uL (1.2-4.9); Lymphocytes Percent Auto 19.4 % (20-40); Mean Corpuscular HGB Conc 34.8 g/dl (31.0-35.0); Mean Corpuscular Hemoglobin 29.1 pg (27.0-33.0); Mean Corpuscular Volume 83.7 fL (80.0-98.0); Mean Platelet Volume 8.1 fL (9.4-12.3); Monocytes Absolute Auto 1.1 X10*3/uL (0.1-1.2); Monocytes Percent Auto 11.3 % (2-11); Neutrophils Absolute Auto 6.6 x10*3/uL (2.0-8.3); Platelet Count 333 X10*3/uL (160-400); Red Blood Count 4.43 X10*6/uL (4.20-5.50); Red Cell Distribution Width 14.1 % (11.0-16.0); White Blood Count 9.7 X10*3/uL (4.8-10.8)
[2024-08-10] MEDS: Omeprazole 20 MG CAPSULE.DR PO (05:52)
[2024-08-10 05:58] LABS: Anion Gap 14 (12-20); Blood Urea Nitrogen 20 mg/dL (9-16); Calcium 9.7 mg/dL (8.4-10.2); Carbon Dioxide 27 mmol/L (22-29); Chloride 92 mmol/L (96-108); Creatinine Clr Calc Pharmacy 55.8; Estimated Glomerular Filt Rate 59; Glucose Random 107 mg/dL (60-115); Potassium 4.7 mmol/L (3.3-5.1); Sodium 128 mmol/L (135-145)
[2024-08-10 07:46] VITALS: BP 160/80; PULSE 84; RESP 16; TEMP 36.8; O2SAT 97
[2024-08-10 08:00] VITALS: BP 147/80
[2024-08-10] MEDS: Aspirin Enteric Coated 81 MG TABLET.DR PO (08:15)
[2024-08-10] MEDS: amLODIPine Besylate 10 MG TABLET PO (08:15)
[2024-08-10] MEDS: Cholecalciferol (Vitamin D3) 25 MCG TABLET PO (08:15)
[2024-08-10] MEDS: Gabapentin 100 MG CAPSULE PO ×2 (08:15→14:35)
[2024-08-10] MEDS: Ferrous Sulfate 324 MG TABLET.DR PO (08:15)
[2024-08-10] MEDS: Metoprolol Succinate ER 50 MG TAB.ER.24H PO (08:15)
[2024-08-10] MEDS: lisinopriL 20 MG TABLET PO (08:16)
[2024-08-10] MEDS: clonazePAM 0.5 MG TABLET PO ×2 (08:16→14:35)
[2024-08-10] MEDS: Enoxaparin Sodium 40 MG/0.4 ML SYRINGE SUBCUT (08:16)
[2024-08-10] MEDS: Multivitamin TABLET 1 TAB PO (08:16)
[2024-08-10] MEDS: Atorvastatin Calcium 80 MG TABLET PO (08:16)
[2024-08-10] MEDS: 0.9 % Sodium Chloride Flush 3 ML SYRINGE IVFLUSH ×2 (08:17→14:37)
[2024-08-10] MEDS: Fluticasone Propionate Nasal 16 GM SPRAY 2 SPRAY NOSTRIL-B (08:17)
[2024-08-10] MEDS: Ipratropium Bromide Nas 0.03 % 30 ML SPRAY 2 SPRAY NOSTRIL-B (08:17)
--- NOTE | 2024-08-10 09:38 | P.PNNP_ITS ---
Subjective Subjective Date of Service: 08/10/24 Interval history: 78-year-old female presented with panic attacks/anxiety, admitted with low sodium of 126. serum sodium improving today, 128 (126 yesterday) after holding sertraline 100mg daily chronic hyponatremia since 2019 (usually in low to mid 130s). urine osmolality 478, urine sodium [address] and sertraline being held (pt also on mirtazapine and trazodone for anxiety management) she denies current nausea, vomiting, muscle cramps pt has some cognitive impairment at baseline, is currently to person, place at bedside she states she is feeling well and denies nausea, vomiting, cramping, headache, dizziness denies urinary symptoms endorses adequate nutrition renal function is at her baseline (Cr 0.93, GFR 54) Physical Exam 2 Vital Signs: Vital Signs: Last Vital Signs Temp 98.3 F 08/10/24 07:46 Pulse 84 08/10/24 07:46 Resp 16 08/10/24 07:46 BP 147/80 H 08/10/24 08:00 Pulse Ox 97 08/10/24 07:46 O2 Del Method Room Air 08/10/24 07:46 BMI result Body Mass Index 28.0 Const: General: comfortable and no acute distress O rientation/consciousness: oriented to person, oriented to place and oriented to time Neck: Neck: Yes no JVD Resp: Effort & Inspection: able to speak in complete sentences A uscultation: clear to auscultation bilaterally Cardio: Jugular venous distension: no JVD Rate: regular rate Rhythm: r egular rhythm Heart sounds: S1 normal heart sound present and S2 normal heart sound present GI: Palpation (GI): Soft to palpation and nontender Rectal Exam - Female: N o tenderness : General: Yes no CVA tenderness Back/Spine/Pelvis: Back: no CVA tenderness Skin: Rashes: no rashes Wounds: amputation site Neuro: General: oriented to person, oriented to place and oriented to time Extrem: General: Yes normal to inspection, No edema and No pedal edema Objective Data Labs 08/10/24 05:02 08/10/24 05:02 Labs: Laboratory Results - last 24 hr 08/09/24 08/09/24 08/10/24 09:29 17:21 05:02 WBC 9.7 RBC 4.43 Hgb 12.9 Hct 37.1 MCV 83.7 MCH 29.1 MCHC 34.8 RDW 14.1 Plt Count 333 MPV 8.1 L Immature Gran % (Auto) 0.6 H Neut % (Auto) 68.0 Lymph % (Auto) 19.4 L [place] % (Auto) 11.3 H Eos % (Auto) 0.2 Baso % (Auto) 0.5 Lymph # (Auto) 1.9 [place] # (Auto) 1.1 Eos # (Auto) 0.0 Baso # (Auto) 0.1 Abs Immat Gran (auto) 0.06 H Absolute Neuts (auto) 6.6 Absolute Nucleated RBC 0.000 Nucleated RBC % (auto) 0.0 Sodium 126 L 127 L 128 L Potassium 4.1 4.7 Chloride 91 L 92 L Carbon Dioxide 25 27 Anion Gap 14 14 BUN 19 H 20 H Creatinine 0.93 0.91 Estim Creat Clear Calc 54.6 55.8 Estimated GFR 58 59 Random Glucose 133 H 107 Calcium 9.9 9.7 Procedures Date of Service Date of Service: 08/10/24 Assessment & Plan Assessment and plan (1) Acute hyponatremia: Status: Acute (2) CKD stage 3a, GFR 45-59 ml/min: Status: Acute Plan chronic hyponatremia likely secondary to SIADH from antidepressent medication, nausea may have triggered acute lowering of sodium. currently asymptomatic recommend continuing to hold sertraline, recommend following psychiatric recommendations for further medication adjustment if anxiety worsens due to medication adjustment continue with free water restriction 1.2L of water per 24 hours ensure management of nausea, vomiting, PRN antiemetics if symptoms return since nausea is a potent stimulus for ADH release Continue to follow serum electrolytes and renal function, should monitor serum sodium every 12 hours, should not increase sodium level more than 10mmol in 24 hour period or 0.5mmol/L/hr ok to discharge and follow up outpatient. Discussed with Dr Erazo. Time Spent With Patient Time: Total time managing care of this patient today ____ minutes. Progress Note: Quality Stroke Does the patient have a stroke diagnosis?: No
[2024-08-10] MEDS: Sodium Chloride Tab 1 GM TABLET PO (11:05)
[2024-08-10] MEDS: ondansetron HCL 4 MG/2 ML VIAL IVPUSH (12:22)
--- NOTE | 2024-08-10 13:08 | P.PNIM_ITS ---
Subjective Subjective Date of Service: 08/10/24 Physical Exam 2 Vital Signs: Vital Signs: Last Vital Signs Temp 98.3 F 08/10/24 07:46 Pulse 84 08/10/24 07:46 Resp 16 08/10/24 07:46 BP 147/80 H 08/10/24 08:00 Pulse Ox 97 08/10/24 07:46 O2 Del Method Room Air 08/10/24 07:46 BMI result Body Mass Index 28.0 Objective Data Active Medications Acetaminophen (Acetaminophen 325 Mg Tablet) 650 mg PO Q6H PRN PRN Reason: Pain, Mild (Pain Scale 1-3), fever or headache Last Admin: 08/09/24 09:58 Dose: 650 mg Documented By: CHANDU Amlodipine Besylate (Amlodipine Besylate 10 Mg Tablet) 10 mg PO DAILY [facility]; Protocol Last Admin: 08/10/24 08:15 Dose: 10 mg Documented By: CHANDU Aspirin (Aspirin Enteric Coated 81 Mg Tablet.) 81 mg PO DAILY [facility] Last Admin: 08/10/24 08:15 Dose: 81 mg Documented By: CHANDU Atorvastatin Calcium (Atorvastatin Calcium 80 Mg Tablet) 80 mg PO DAILY [facility] Last Admin: 08/10/24 08:16 Dose: 80 mg Documented By: CHANDU Bisacodyl (Bisacodyl 5 Mg Tablet.) 5 mg PO DAILY PRN PRN Reason: constipation Calcium Carbonate (Calcium Carbonate 750 Mg Tab.Chew) 750 mg PO Q4H PRN PRN Reason: Heartburn Clonazepam (Clonazepam 0.5 Mg Tablet) 0.5 mg PO TID [facility] Last Admin: 08/10/24 08:16 Dose: 0.5 mg Documented By: CHANDU Diphenhydramine HCl (Diphenhydramine Hcl 25 Mg Capsule) 25 mg PO BEDTIME PRN PRN Reason: itch Enoxaparin Sodium (Enoxaparin Sodium 40 Mg/0.4 Ml Syringe) 40 mg SUBCUT Q24H [facility] Last Admin: 08/10/24 08:16 Dose: 40 mg Documented By: CHANDU Ferrous Sulfate (Ferrous Sulfate 324 Mg Tablet.) 324 mg PO DAILY [facility] Last Admin: 08/10/24 08:15 Dose: 324 mg Documented By: CHANDU Fluticasone Propionate (Fluticasone Propionate Nasal 16 Gm [place]) 2 spray NOSTRIL-B DAILY [facility] Last Admin: 08/10/24 08:17 Dose: 2 spray Documented By: CHANDU Gabapentin (Gabapentin 100 Mg Capsule) 100 mg PO TID [facility] Last Admin: 08/10/24 08:15 Dose: 100 mg Documented By: CHANDU Hydroxyzine HCl (Hydroxyzine Hcl 25 Mg Tablet) 25 mg PO TID PRN PRN Reason: anxiety Last Admin: 08/10/24 12:32 Dose: 25 mg Documented By: CHANDU Ipratropium [place] (Ipratropium [place] Javed 0.03 % 30 Ml [place]) 2 spray NOSTRIL-B BID [facility] Last Admin: 08/10/24 08:17 Dose: 2 spray Documented By: CHANDU Lisinopril (Lisinopril 20 Mg Tablet) 20 mg PO DAILY [facility]; Protocol Last Admin: 08/10/24 08:16 Dose: 20 mg Documented By: CHANDU Magnesium Hydroxide (Milk Of Magnesia 30 Ml Oral.Susp) 30 ml PO DAILY PRN PRN Reason: Constipation Melatonin (Melatonin 3 Mg Tablet) 6 mg PO BEDTIME PRN PRN Reason: Insomnia Melatonin (Melatonin 3 Mg Tablet) 9 mg PO BEDTIME PRN PRN Reason: Insomnia Metoprolol Succinate (Metoprolol Succinate Er 50 Mg Tab.Er.24h) 50 mg PO DAILY [facility]; Protocol Last Admin: 08/10/24 08:15 Dose: 50 mg Documented By: CHANDU Mirtazapine (Mirtazapine 15 Mg Tablet) 45 mg PO BEDTIME [facility] Last Admin: 08/09/24 20:41 Dose: 45 mg Documented By: VICKY Multivitamins/Vitamin C (Multivitamin Tablet) 1 tab PO DAILY [facility] Last Admin: 08/10/24 08:16 Dose: 1 tab Documented By: CHANDU Omeprazole (Omeprazole 20 Mg Capsule.Dr) 20 mg PO DAILY@0630 [facility] Last Admin: 08/10/24 05:52 Dose: 20 mg Documented By: VICKY Ondansetron HCl (Ondansetron Hcl 4 Mg/2 Ml Vial) 4 mg IVPUSH Q8H PRN PRN Reason: Nausea and Vomiting Last Admin: 08/10/24 12:22 Dose: 4 mg Documented By: CHANDU Ondansetron HCl (Ondansetron Odt 4 Mg Tab.Rapdis) 4 mg TRANSLINGU Q6H PRN PRN Reason: nausea and vomiting Sodium Chloride (0.9 % Sodium Chloride Flush 3 Ml Syringe) 3 ml IVFLUSH QSHIFT [facility] Last Admin: 08/10/24 08:17 Dose: 3 ml Documented By: CHANDU Sodium Chloride (Sodium Chloride Tab 1 Gm Tablet) 1 gm PO BID [facility] Last Admin: 08/10/24 11:05 Dose: 1 gm Documented By: CHANDU Trazodone HCl (Trazodone Hcl 50 Mg Tablet) 50 mg PO BEDTIME [facility] Last Admin: 08/09/24 20:41 Dose: 50 mg Documented By: VICKY Vitamin D (Cholecalciferol (Vitamin D3) 25 Mcg Tablet) 25 mcg PO BID [facility] Last Admin: 08/10/24 08:15 Dose: 25 mcg Documented By: CHANDU Zolpidem Tartrate (Zolpidem Tartrate 5 Mg Tablet) 5 mg PO BEDTIME PRN PRN Reason: Insomnia Labs 08/10/24 05:02 08/10/24 05:02 Labs: Laboratory Results - last 24 hr 08/10/24 05:02 MCV 83.7 MCH 29.1 MCHC 34.8 RDW 14.1 Plt Count 333 MPV 8.1 L Immature Gran % (Auto) 0.6 H Neut % (Auto) 68.0 Lymph % (Auto) 19.4 L [place] % (Auto) 11.3 H Eos % (Auto) 0.2 Baso % (Auto) 0.5 Lymph # (Auto) 1.9 [place] # (Auto) 1.1 Eos # (Auto) 0.0 Baso # (Auto) 0.1 Abs Immat Gran (auto) 0.06 H Absolute Neuts (auto) 6.6 Absolute Nucleated RBC 0.000 Nucleated RBC % (auto) 0.0 Anion Gap 14 Estim Creat Clear Calc 55.8 Estimated GFR 59 Random Glucose 107 Calcium 9.7 Quality Stroke Does the patient have a stroke diagnosis?: No VTE Prior VTE?: No VTE Risk Level:: Medical - moderate - high VTE Device Contraindication: Treatment Not Indicated VTE Drug Contraindication: N/A - Med Ordered
[2024-08-10 13:18] LABS: Sodium 128 mmol/L (135-145)
--- NOTE | 2024-08-10 15:04 | MHC.CM.PN ---
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
[2024-08-10 15:11] VITALS: BP 123/66; PULSE 82; RESP 16; TEMP 36.9; O2SAT 95
--- NOTE | 2024-08-10 15:11 | PM.DS ---
DS: Providers Provider Date of Service: 08/10/24 Date of admission: 08/09/24 11:52 Date of discharge: 08/10/24 Primary care physician: Nitin Echevarria MD Consults: 08/09/24 05:19 Consult to Psychiatry Routine Consulting Provider: Marizol Covering Reason for consultation: uncontrolled anxiety 08/09/24 11:24 Consult to Nephrology Routine Consulting Provider: [facility] Reason for consultation: hyponatremia, siadh Attending physician on discharge: Meredith Coello Discharging clinician: Meredith Coello DS: Diagnosis Discharge Diagnosis (1) Acute hyponatremia: Status: Acute (2) CKD stage 3a, GFR 45-59 ml/min: Status: Acute DS: Summary Hospital Course Hospital Course: 78-year-old female with pertinent history of generalized anxiety disorder, major cognitive disorder, mixed hyperlipidemia, gastroesophageal reflux disease, hypertension who presents to the emergency department for evaluation of anxiety and panic attacks. This is patient's 4th ER visit in 2 days. States she has been having increasing anxiety with frequent panic attacks. States this raises her blood pressure and she wants medication for her anxiety and blood pressure. Patient was prescribed metoprolol by previous ER provider but states she was not able to pick it up. Patient is specifically asking for Xanax her anxiety. No fever, chills, chest discomfort, palpitations, shortness of breath, abdominal pain, changes in urinary or bowel habits. In the emergency department, sodium was found to be 126. Patient was seen causing herself to vomit in the ER. plan: Patient was admitted to the hospital because of hyponatremia(possibly acute on chronic): Patient was on sertraline, urine osmolality is higher than serum osmolality: Patient was started on fluid restrictions , sertraline was stopped. Seen by Nephrology and recommended restriction 1.2 L per day. Sodium improving to 128 range(maintaining). Patient is symptomatic. Seen by psych: Recommended to stop sertraline and Xanax and switched to gabapentin and Klonopin. Patient is to follow-up outpatient with PCP and consider psych follow-up. Monitor BMP outpatient. Above management discussed with the patient's son in detail length, daughter called 2 time and message left. Patient says that she lives with her son and her son is also confirmed that. Patient will be going home with her son. plan: gabapetin 100 mg po tid. clonazepam 0.5 mg tid . stop sertraline /xanax. Keep fluid intake 1.2 L until repeat bmp in 1 week. Consider Follow up with Nephrology outpatient. Assessment and plan coordination time spent 40 minute. Above management discussed with patient and her son in detail length. Time Attestation Total time managing care of this patient today: 40 mintues. Discharge Coordination Time (in mins): 40 minute Quality: Safe Use of Opioids Does Pt have an Active Cancer Diagnosis on the Problem List?: No Quality: Stroke Does the patient have a stroke diagnosis?: No Physical Exam Vital Signs: Vital Signs: Last Vital Signs Temp 98.3 F 08/10/24 07:46 Pulse 84 08/10/24 07:46 Resp 16 08/10/24 07:46 BP 147/80 H 08/10/24 08:00 Pulse Ox 97 08/10/24 07:46 O2 Del Method Room Air 08/10/24 07:46 BMI result Body Mass Index 28.0 Appearance: Awake and alert, not in acute distress.. cvs: rrr, [id number] . res: clear to auscultation ,no rhonchii or wheezing abd: no rebound or guarding ,nt, bs present. ext pulses present , no cyanosis. neuro: nonfocal. DS: Data Data Completed and Pending Labs on day of discharge: Laboratory Results - last 24 hr 08/09/24 08/10/24 08/10/24 17:21 05:02 12:56 WBC 9.7 RBC 4.43 Hgb 12.9 Hct 37.1 MCV 83.7 MCH 29.1 MCHC 34.8 RDW 14.1 Plt Count 333 MPV 8.1 L Immature Gran % (Auto) 0.6 H Neut % (Auto) 68.0 Lymph % (Auto) 19.4 L Loving % (Auto) 11.3 H Eos % (Auto) 0.2 Baso % (Auto) 0.5 Lymph # (Auto) 1.9 Loving # (Auto) 1.1 Eos # (Auto) 0.0 Baso # (Auto) 0.1 Abs Immat Gran (auto) 0.06 H Absolute Neuts (auto) 6.6 Absolute Nucleated RBC 0.000 Nucleated RBC % (auto) 0.0 Sodium 127 L 128 L 128 L Potassium 4.7 Chloride 92 L Carbon Dioxide 27 Anion Gap 14 BUN 20 H Creatinine 0.91 Estim Creat Clear Calc 55.8 Estimated GFR 59 Random Glucose 107 Calcium 9.7 Discharge Plan Discharge Anticipated Discharge Date/Time: 08/10/24 14:38 Patient Disposition: Home Health Service Discharge Diagnosis: hyponatremia, anxiety Referrals: Name,MD Nitin [Primary Care Provider] - 1 Week Discharge Medications: New clonazepam 0.5 mg Tablet 0.5 mg PO TID Qty: 180 0RF gabapentin 100 mg Capsule 100 mg PO TID Qty: 180 0RF Continued metoprolol succinate 50 mg tablet extended release 24 hr 50 mg PO DAILY Qty: 90 2RF mirtazapine 45 mg Tablet 45 mg PO BEDTIME omeprazole 20 mg Tablet,Delayed Release (Dr/Ec) 20 mg PO DAILY@0630 fluticasone propionate [Flonase Allergy Relief] 50 mcg/actuation spray,suspension 2 spray intranasal DAILY Qty: 16 0RF Rx Instructions: administer into each nostril hydroxyzine HCl 25 mg tablet 25 mg PO TID PRN (Reason: anxiety) Qty: 6 0RF trazodone 50 mg tablet 50 mg PO BEDTIME ferrous sulfate [FeroSul] 325 mg (65 mg iron) tablet 325 mg PO DAILY diphenhydramine HCl [Lou-Dryl] 25 mg tablet 25 mg PO BEDTIME PRN (Reason: itch) bisacodyl 5 mg tablet,delayed release (DR/EC) 5 mg PO DAILY PRN (Reason: constipation) rosuvastatin 20 mg tablet 20 mg PO BEDTIME cholecalciferol (vitamin D3) 25 mcg (1,000 unit) tablet 25 mcg PO BID aspirin 81 mg tablet,delayed release (DR/EC) 81 mg PO QAM multivitamin Tablet 1 tab PO QAM melatonin 10 mg tablet extended release 10 mg PO BEDTIME PRN (Reason: Insomnia) ondansetron 4 mg tablet,disintegrating 4 mg PO Q6H PRN (Reason: nausea and vomiting) Qty: 10 0RF lisinopril 20 mg tablet 20 mg PO DAILY acetaminophen 500 mg tablet 500 mg PO Q8H PRN (Reason: pain) zolpidem 5 mg tablet 5 mg PO BEDTIME PRN (Reason: Insomnia) ipratropium bromide 21 mcg (0.03 %) spray,non-aerosol 2 spray intranasal BID amlodipine 10 mg tablet 10 mg PO DAILY Discontinued alprazolam 0.5 mg tablet 0.5 mg PO QID PRN (Reason: Anxiety) sertraline 100 mg tablet 100 mg PO DAILY Discharge Orders: Discharge Order (Routine); Ordered 08/10/24 Ordered By: Meredith Coello Diet: Advance to usual diet Activity on Discharge: As tolerated Stand Alone Forms: Patient Portal Discharge page Print Language: Divehi Other Ambulatory Orders: Basic Metabolic Panel (Routine) Timeframe: 1 Week Facility: [facility] - Location: Laboratory Ordered By: Meredith Coello Care Plan Goals: Patient was admitted to the hospital because of hyponatremia(possibly acute on chronic): Patient was on sertraline, urine osmolality is higher than serum osmolality: Patient was started on fluid restrictions , sertraline was stopped. Seen by Nephrology and recommended restriction 1.2 L per day. Sodium improving to 128 range(maintaining). Patient is symptomatic. Seen by psych: Recommended to stop sertraline and Xanax and switched to gabapentin and Klonopin. Patient is to follow-up outpatient with PCP and consider psych follow-up. Monitor BMP outpatient. Above management discussed with the patient's son in detail length, daughter called 2 time and message left. Patient says that she lives with her son and her son is also confirmed that. Patient will be going home with her son. Health Concerns: Keep fluid intake 1.2 L until repeat bmp in 1 week. Consider Follow up with Nephrology outpatient. gabapetin 100 mg po tid. clonazepam 0.5 mg tid . stop sertraline /xanax. Plan of Treatment: as above. Assessment: as above.
--- NOTE | 2024-08-10 15:15 | W.MHC.F2F ---
Service Date Service Date: 08/10/24 Encounter Date of encounter: 08/10/24 Encounter: hyponatremia Reasons for Services Signs and symptoms assessed: anxiety,hyponatremia Reason for penitentiary: medication management, medication treatment and teach disease management MD Overseeing Care: Nitin Echevarria Homebound: Leaving the home is medically contraindicated at this time without the asist of a device and/or another person due th the listed conditions above and below. Reason homebound: weakness related to hospital stay Homebound supporting statement: Patient had multiple comorbidities including acute on chronic hyponatremia,Anxiety with mutliple medication changes -need help with the disease management, blood draws and appointments Certification: Based on the above findings, I certify that this patient is confined to the home and needs intermittent penitentiary care, physical therapy and/or speech therapy, or continues to need occupational therapy. The patient is under my care, and I have initiated the establishment of the plan of care. The patient will be followed by a physician who will periodically review the plan of care. Time Spent With Patient Time: Total time managing care of this patient today ____ minutes.
== END 2024-08-10 15:55 | disposition home health service (06) | DRG 644 ==
LOC: HO.ED 08-09 02:48 → HO.EDOVER 08-09 05:29 → HO.S3 08-09 07:42
PROVIDERS: Physician Assistant; Admitting Provider Student in an Organized Health Care Education/Training Program; Emergency Provider Emergency Medicine; PCP Internal Medicine Geriatric Medicine; Visit Provider Internal Medicine
DX: E22.2 Syndrome of inappropriate secretion of antidiuretic hormone (principal); F03.93 Unspecified dementia, unspecified severity, with mood disturbance; F41.1 Generalized anxiety disorder; E78.2 Mixed hyperlipidemia; I12.9 Hypertensive chronic kidney disease with stage 1 through stage 4 chronic kidney disease, or unspecified chronic kidney disease; N18.31 Chronic kidney disease, stage 3a; K21.9 Gastro-esophageal reflux disease without esophagitis; F41.0 Panic disorder [episodic paroxysmal anxiety]; T44.7X6A Underdosing of beta-adrenoreceptor antagonists, initial encounter; Z20.822 Contact with and (suspected) exposure to COVID-19; Z79.82 Long term (current) use of aspirin; Z79.899 Other long term (current) drug therapy
CPT/HCPCS: 0241U; 36415; 80048; 80053; 81001; 81003; 82570; 82947; 83930; 83935; 84295; 84300; 85025; 93005; 99285; J1650; J2405; J2765

== ENCOUNTER → 2024-08-09 05:16 | Outpatient (BNV) | payer OTHER, SELFPAY | PROVIDERS: Admitting Provider Student in an Organized Health Care Education/Training Program; Emergency Provider Emergency Medicine; Visit Provider Student in an Organized Health Care Education/Training Program | DX: E87.1 Hypo-osmolality and hyponatremia (principal); N18.31 Chronic kidney disease, stage 3a | CPT/HCPCS: 99222; 99239; 99499; G0180 ==

== ENCOUNTER → 2024-08-09 11:52 | Outpatient (BNV) | payer OTHER, SELFPAY | PROVIDERS: Admitting Provider Student in an Organized Health Care Education/Training Program; Emergency Provider Emergency Medicine; PCP Internal Medicine Geriatric Medicine; Visit Provider Psychiatry & Neurology Psychiatry | DX: F03.90 Unspecified dementia, unspecified severity, without behavioral disturbance, psychotic disturbance, mood disturbance, and anxiety (principal); F41.1 Generalized anxiety disorder; F41.0 Panic disorder [episodic paroxysmal anxiety]; E87.1 Hypo-osmolality and hyponatremia | CPT/HCPCS: 99232 ==

== ENCOUNTER → 2024-08-09 11:52 | Outpatient (BNV) | payer OTHER, SELFPAY | PROVIDERS: Admitting Provider Student in an Organized Health Care Education/Training Program; Emergency Provider Emergency Medicine; Visit Provider Nurse Practitioner Family | DX: E87.1 Hypo-osmolality and hyponatremia (principal); N18.31 Chronic kidney disease, stage 3a | CPT/HCPCS: 99222; 99232 ==

== ENCOUNTER 2024-08-16 10:34 | Outpatient (REF) | payer OTHER, SELFPAY ==
[2024-08-16 12:22] LABS: Anion Gap 15 (12-20); Blood Urea Nitrogen 19 mg/dL (9-16); Calcium 9.2 mg/dL (8.4-10.2); Carbon Dioxide 22 mmol/L (22-29); Chloride 99 mmol/L (96-108); Estimated Glomerular Filt Rate 53; Glucose Random 92 mg/dL (60-115); Potassium 4.8 mmol/L (3.3-5.1); Sodium 131 mmol/L (135-145)
== END 2024-08-16 10:35 | disposition home or self-care (01) ==
LOC: HO.HHCL 10:34
PROVIDERS: Visit Provider Internal Medicine Geriatric Medicine
DX: E87.1 Hypo-osmolality and hyponatremia (principal); F41.1 Generalized anxiety disorder; F41.0 Panic disorder [episodic paroxysmal anxiety]
CPT/HCPCS: 36415; 80048

== ENCOUNTER 2024-08-20 14:02 | Outpatient (AMB) | payer OTHER, SELFPAY ==
--- NOTE | 2024-08-20 14:13 | HO.NEPHOV_ITS ---
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 Accompanied by: Friend Allergies penicillin G [Penicillin G] Allergy (Severe, Verified 08/20/24 14:17) ITCHY/RASH Sulfa (Sulfonamide Antibiotics) [Sulfa (Sulfonamides)] Allergy (Severe, Verified 08/20/24 14:17) ITCHY,RASH, rash trimethoprim [From Bactrim] Allergy (Severe, Verified 08/20/24 14:17) HIVES Medication List - Last Reconciled 08/20/24 by Santos Erazo MD acetaminophen 500 mg PO Q8H PRN amlodipine 10 mg PO DAILY aspirin 81 mg PO QAM bisacodyl 5 mg PO DAILY PRN cholecalciferol (vitamin D3) 25 mcg PO DAILY clonazepam 0.5 mg PO TID diphenhydramine HCl (Lou-Dryl) 25 mg PO BEDTIME PRN ferrous sulfate (FeroSul) 325 mg PO DAILY fluticasone propionate 50 mcg/actuation (Flonase Allergy Relief) 2 sprays intranasal DAILY gabapentin 100 mg PO TID hydroxyzine HCl 25 mg PO TID PRN ipratropium bromide 2 sprays intranasal BID melatonin ER 10 mg PO BEDTIME PRN metoprolol succinate ER 50 mg PO DAILY mirtazapine 45 mg PO BEDTIME multivitamin 1 tab PO QAM omeprazole 20 mg PO DAILY@0630 ondansetron 4 mg PO Q6H PRN rosuvastatin 20 mg PO BEDTIME trazodone 50 mg PO BEDTIME valsartan 160 mg PO DAILY zolpidem 5 mg PO BEDTIME PRN HPI Comments Details: 78-year-old female with medical history of generalized anxiety disorder, major cognitive disorder, HLD, GERD, HTN who presented to the ER for anxiety and panic attacks, was found to have a sodium of 126 and an episode of vomiting, and was seen during recent hospitalization. Serum sodium improved from 12/05 up to 131 prior to discharge. She is here for further follow-up. She is on lisinopril 20 mg a day. 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) Alcohol intake: never Patient Tobacco Use Status: Never used Tobacco Advance Directives Date on File: 01/28/24 service: No Physical Exam Vital Signs: Last Vital Signs BP 110/60 08/20/24 14:15 BMI result Body Mass Index 28.2 Const General: comfortable; No acute distress Orientation/consciousness: patient oriented x3 Eyes General: appearance normal, both eyes and all related structures Visual Albright: normal visual albright by confrontation Neck Neck: Yes supple and Yes no JVD Resp Effort & Inspection: normal respiratory effort and respiratory effort not decreased Auscultation: rhonchi Cardio Palpation: no palpable S3 and no palpable S4 Heart sounds: no rubs GI Inspection: Yes normal to inspection Palpation (GI): Soft to palpation Percussion: Yes normal to percussion Auscultation: normal bowel sounds General: Yes no CVA tenderness Back/Spine/Pelvis Back: no CVA tenderness Skin General skin exam: no petechiae and no purpura Neuro General: patient oriented x3 and no focal motor deficits Extrem General: No clubbing and No edema Results Reviewed Nephrology Results: Hgb 12.9 g/dl (12.0-16.0) 08/10/24 WBC 9.7 X10*3/uL (4.8-10.8) 08/10/24 Plt Count 333 X10*3/uL (160-400) 08/10/24 Sodium 131 mmol/L (135-145) L 08/16/24 Potassium 4.8 mmol/L (3.3-5.1) 08/16/24 Chloride 99 mmol/L (96-108) 08/16/24 Carbon Dioxide 22 mmol/L (22-29) 08/16/24 BUN 19 mg/dL (9-16) H 08/16/24 Creatinine 1.00 mg/dL (0.5-1.4) 08/16/24 Calcium 9.2 mg/dL (8.4-10.2) 08/16/24 Urine Protein 30 (1+) mg/dL (Neg-Trace) H 08/09/24 Urine Creatinine 63.79 mg/dL 08/09/24 Assessment & Plan Assessment & Plan (1) Acute hyponatremia: Code(s): E87.1 - Hypo-osmolality and hyponatremia Category: Medical (2) CKD stage 3a, GFR 45-59 ml/min: Code(s): N18.31 - Chronic kidney disease, stage 3a Category: Medical Plan Hyponatremia due to non osmotic ADH release. Goal is to maintain serum sodium more than 133 millimoles Restrict oral free water intake to 1.2 L per 24 hours. I will change lisinopril 20 mg to valsartan 160 mg. Maintain blood pressure less than 130/80 All questions were answered Orders: Orders Basic Metabolic Panel 10 Days E87.1 - Hypo-osmolality and hyponatremia, N18.31 - Chronic kidney disease, stage 3a Medications: New valsartan 160 mg PO DAILY 90 tabs 1RF Coding Level of Care Code Est Pt Level 4 (51071) Diagnoses Acute hyponatremia E87.1 CKD stage 3a, GFR 45-59 ml/min N18.31
[2024-08-20 14:15] VITALS: BP 110/60; BMI 28.2
== END 2024-08-20 14:37 | disposition home or self-care (01) ==
PROVIDERS: PCP Internal Medicine Geriatric Medicine; Visit Provider Internal Medicine Hypertension Specialist
DX: E87.1 Hypo-osmolality and hyponatremia (principal); N18.31 Chronic kidney disease, stage 3a
CPT/HCPCS: 99214

== ENCOUNTER → 2024-08-20 14:02 | Outpatient (BNVA) | payer OTHER, SELFPAY | PROVIDERS: PCP Internal Medicine Geriatric Medicine; Visit Provider Internal Medicine Hypertension Specialist | DX: I12.9 Hypertensive chronic kidney disease with stage 1 through stage 4 chronic kidney disease, or unspecified chronic kidney disease (principal); N18.31 Chronic kidney disease, stage 3a; E87.1 Hypo-osmolality and hyponatremia | CPT/HCPCS: 99212 ==

== ENCOUNTER 2024-08-23 01:58 | Emergency (ER) | payer OTHER, SELFPAY ==
[2024-08-23 02:00] VITALS: BP 146/84; BP 149/90; PULSE 129; PULSE 85; RESP 18; TEMP 37.1; O2SAT 100; O2SAT 99; BMI 27.4
--- NOTE | 2024-08-23 02:06 | ECG_ITS ---
Test Reason : TACHYCARDIA Blood Pressure : / mmHG Vent. Rate : 126 BPM Atrial Rate : 126 BPM P-R Int : 192 ms QRS Dur : 086 ms QT Int : 306 ms P-R-T Axes : 012 -33 066 degrees QTc Int : 443 ms Sinus tachycardia Left axis deviation Abnormal ECG When compared with ECG of 09-AUG-2024 02:53, Vent. rate has increased BY 48 BPM Referred By: Generic ED Physician Electronically Signed By:ZANDRA ENNIS
[2024-08-23 02:29] LABS: MANUAL DIFF FLAG NO
[2024-08-23 02:33] LABS: Basophils Absolute Auto 0.1 X10*3/uL (0.0-0.2); Basophils Percent Auto 0.6 % (0-2); Eosinophils Absolute Auto 0.1 X10*3/uL (0.0-0.4); Eosinophils Percent Auto 1.2 % (0-4); Hematocrit 32.7 % (37.0-47.0); Hemoglobin 10.9 g/dl (12.0-16.0); Imm Gran Abs Auto 0.06 X10*3/uL (0.00-0.03); Imm Gran Pct Auto 0.8 % (0.0-0.4); Lymphocytes Percent Auto 26.2 % (20-40); Mean Corpuscular HGB Conc 33.3 g/dl (31.0-35.0); Mean Corpuscular Hemoglobin 28.9 pg (27.0-33.0); Mean Corpuscular Volume 86.7 fL (80.0-98.0); Mean Platelet Volume 7.9 fL (9.4-12.3); Monocytes Absolute Auto 0.7 X10*3/uL (0.1-1.2); Monocytes Percent Auto 9.1 % (2-11); Neutrophils Absolute Auto 4.8 x10*3/uL (2.0-8.3); Neutrophils Percent Auto 62.1 % (45-73); Platelet Count 293 X10*3/uL (160-400); Red Blood Count 3.77 X10*6/uL (4.20-5.50); Red Cell Distribution Width 14.1 % (11.0-16.0); White Blood Count 7.7 X10*3/uL (4.8-10.8)
--- NOTE | 2024-08-23 02:33 | PC.NURSE ---
record librarian at bedside. pt biba from home reporting high blood pressure since 10pm. 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 pt reports she is unable to take medication due to running out. pt reports anxiety but denies wanting medication. pt sinus tachy on tele 120-131. labs and ekg obtained.
[2024-08-23 02:43] LABS: Alanine Aminotransferase 25 U/L (0-31); Albumin Level 3.9 g/dL (3.5-5.0); Alkaline Phosphatase 61 U/L (39-117); Anion Gap 11 (12-20); Aspartate Amino Transferase 23 U/L (5-31); Bilirubin Total 0.2 mg/dL (0.0-1.0); Blood Urea Nitrogen 22 mg/dL (9-16); Calcium 9.1 mg/dL (8.4-10.2); Carbon Dioxide 27 mmol/L (22-29); Chloride 105 mmol/L (96-108); Creatinine Clr Calc Pharmacy 58.4; Estimated Glomerular Filt Rate > 60; Glucose Random 112 mg/dL (60-115); Potassium 4.4 mmol/L (3.3-5.1); Sodium 139 mmol/L (135-145); Total Protein 7.4 g/dL (6.5-8.0)
[2024-08-23 02:55] LABS: Troponin-I High Sensitivity < 2.7 ng/L (<3.5-17.0)
[2024-08-23 03:06] LABS: Influenza A PCR NEGATIVE (Negative); Influenza B PCR NEGATIVE (Negative); Resp Syncy Virus RNA Qual PCR NEGATIVE (Negative); SARS COV2 PCR INHOUSE NEGATIVE (Negative)
--- NOTE | 2024-08-23 04:21 | ED_ITS ---
HPI - General Adult General Chief complaint: General Medical Stated complaint: Ax has not had BP meds since yesterday, Time Seen by Provider: 08/23/24 03:59 Source: patient Mode of arrival: EMS Limitations: no limitations History of Present Illness ED Provider: esme DUMONT narrative: Patient's history of anxiety, hypotension applied took her medication for the blood pressure and has a refill to be picked up tomorrow but was worried about it that is why she came to the hospital on arrival blood pressure was 149/90 Related Data Home Medications ?Medication ?Instructions ?Recorded ?Confirmed mirtazapine 45 mg tablet 45 mg PO BEDTIME 08/09/20 08/20/24 omeprazole 20 mg tablet,delayed 20 mg PO DAILY@0630 08/09/20 08/20/24 release aspirin 81 mg tablet,delayed 81 mg PO QAM 01/28/24 08/20/24 release bisacodyl 5 mg tablet,delayed 5 mg PO DAILY PRN constipation 01/28/24 08/20/24 release diphenhydramine HCl 25 mg tablet 25 mg PO BEDTIME PRN itch 01/28/24 08/20/24 (Lou-Dryl) ferrous sulfate 325 mg (65 mg 325 mg PO DAILY 01/28/24 08/20/24 iron) tablet (FeroSul) melatonin 10 mg tablet,extended 10 mg PO BEDTIME PRN Insomnia 01/28/24 08/20/24 release multivitamin 1 tab PO QAM 01/28/24 08/20/24 rosuvastatin 20 mg tablet 20 mg PO BEDTIME 01/28/24 08/20/24 trazodone 50 mg tablet 50 mg PO BEDTIME 01/28/24 08/20/24 amlodipine 10 mg tablet 10 mg PO DAILY 02/09/24 08/20/24 acetaminophen 500 mg tablet 500 mg PO Q8H PRN pain 08/09/24 08/20/24 ipratropium bromide 21 mcg (0.03 2 spray intranasal BID 08/09/24 08/20/24 %) nasal spray zolpidem 5 mg tablet 5 mg PO BEDTIME PRN Insomnia 08/09/24 08/20/24 cholecalciferol (vitamin D3) 25 25 mcg PO DAILY 08/20/24 08/20/24 mcg (1,000 unit) tablet Previous Rx's ?Medication ?Instructions ?Recorded metoprolol succinate 50 mg 50 mg PO DAILY #90 tabs 09/28/20 tablet,extended release 24 hr fluticasone propionate 50 2 spray intranasal DAILY #16 grams 09/16/23 mcg/actuation nasal spray,suspension (Flonase Allergy Relief) ondansetron 4 mg disintegrating 4 mg PO Q6H PRN nausea and 04/28/24 tablet vomiting #10 tabs hydroxyzine HCl 25 mg tablet 25 mg PO TID PRN anxiety #6 tabs 08/07/24 clonazepam 0.5 mg tablet 0.5 mg PO TID #180 tabs 08/10/24 gabapentin 100 mg capsule 100 mg PO TID #180 caps 08/10/24 valsartan 160 mg tablet 160 mg PO DAILY #90 tabs 08/20/24 Allergies Allergy/AdvReac Type Severity Reaction Status Date / Time penicillin G [Penicillin G] Allergy Severe ITCHY/RASH Verified 08/23/24 02:08 Sulfa (Sulfonamide Allergy Severe ITCHY,RASH, Verified 08/23/24 02:08 Antibiotics) rash [Sulfa (Sulfonamides)] trimethoprim [From Bactrim] Allergy Severe HIVES Verified 08/23/24 02:08 Review of Systems 2 Review of Systems: Yes all other systems are reviewed and are negative PMF Past Medical History 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 Oriented X3. No acute distress. Anxious Eyes: PERRLA, No Nystagmus ENT: Pharynx normal. Oral Mucosa moist Neck: Normal inspection. Neck supple. CVS: Normal heart rate and rhythm. Pulses normal. Respiratory: No respiratory distress. Equal air entry bilateral, no wheezing/rales/rhonchi Abdomen: Soft and nontender. Bowel sounds are present, no mass palpable, no CVA tenderness Skin: Skin warm and dry. Normal skin color. Normal skin turgor. Extremities: No lower extremity edema. No calf tenderness Neuro: Oriented X 3. No motor deficit. No sensory deficit.No cerebellar signs , cranial nerves II-XII intact Medical Decision Making Medical Decision Making [facility] Narrative: Patient's anxiety with history of hypertension stable labs discharge patient home advised to take her anxiety medication take the prescribed blood pressure medicine a.m. Lab Data [facility] Lab Attestation statement: I reviewed the patient's lab results. 08/23/24 02:21 08/23/24 02:21 Labs: Lab Results 08/23/24 Range/Units 02:21 WBC 7.7 (4.8-10.8) X10*3/uL RBC 3.77 L (4.20-5.50) X10*6/uL Hgb 10.9 L (12.0-16.0) g/dl Hct 32.7 L (37.0-47.0) % MCV 86.7 (80.0-98.0) fL MCH 28.9 (27.0-33.0) pg MCHC 33.3 (31.0-35.0) g/dl RDW 14.1 (11.0-16.0) % Plt Count 293 (160-400) X10*3/uL MPV 7.9 L (9.4-12.3) fL Immature Gran % (Auto) 0.8 H (0.0-0.4) % Neut % (Auto) 62.1 (45-73) % Lymph % (Auto) 26.2 (20-40) % Cache % (Auto) 9.1 (2-11) % Eos % (Auto) 1.2 (0-4) % Baso % (Auto) 0.6 (0-2) % Lymph # (Auto) 2.0 (1.2-4.9) X10*3/uL Cache # (Auto) 0.7 (0.1-1.2) X10*3/uL Eos # (Auto) 0.1 (0.0-0.4) X10*3/uL Baso # (Auto) 0.1 (0.0-0.2) X10*3/uL Abs Immat Gran (auto) 0.06 H (0.00-0.03) X10*3/uL Absolute Neuts (auto) 4.8 (2.0-8.3) x10*3/uL Absolute Nucleated RBC 0.000 (0.0-0.012) X10*3/uL Nucleated RBC % (auto) 0.0 (0.0-0.2) /100WBC Sodium 139 (135-145) mmol/L Potassium 4.4 (3.3-5.1) mmol/L Chloride 105 (96-108) mmol/L Carbon Dioxide 27 (22-29) mmol/L Anion Gap 11 L (12-20) BUN 22 H (9-16) mg/dL Creatinine 0.86 (0.5-1.4) mg/dL Estim Creat Clear Calc 58.4 Estimated GFR > 60 Random Glucose 112 (60-115) mg/dL Calcium 9.1 (8.4-10.2) mg/dL Total Bilirubin 0.2 (0.0-1.0) mg/dL AST 23 (5-31) U/L ALT 25 (0-31) U/L Alkaline Phosphatase 61 (39-117) U/L Troponin I High Sens < 2.7 (<3.5-17.0) ng/L Total Protein 7.4 (6.5-8.0) g/dL Albumin 3.9 (3.5-5.0) g/dL Influenza Type A (PCR) NEGATIVE (Negative) Influenza Type B (PCR) NEGATIVE (Negative) RSV RNA Qual (PCR) NEGATIVE (Negative) SARS-CoV-2 RNA (RT-PCR) NEGATIVE (Negative) Discharge Plan Discharge Clinical Impression: Generalized anxiety disorder with panic attacks Patient Disposition: Home, Self-Care Instructions: Anxiety (ED) Additional Instructions: Take medication as prescribed and follow with your PCP Prescriptions: No Action metoprolol succinate 50 mg tablet extended release 24 hr 50 mg PO DAILY Qty: 90 2RF mirtazapine 45 mg Tablet 45 mg PO BEDTIME omeprazole 20 mg Tablet,Delayed Release (Dr/Ec) 20 mg PO DAILY@0630 fluticasone propionate [Flonase Allergy Relief] 50 mcg/actuation spray,suspension 2 spray intranasal DAILY Qty: 16 0RF Rx Instructions: administer into each nostril hydroxyzine HCl 25 mg tablet 25 mg PO TID PRN (Reason: anxiety) Qty: 6 0RF trazodone 50 mg tablet 50 mg PO BEDTIME ferrous sulfate [FeroSul] 325 mg (65 mg iron) tablet 325 mg PO DAILY diphenhydramine HCl [Lou-Dryl] 25 mg tablet 25 mg PO BEDTIME PRN (Reason: itch) bisacodyl 5 mg tablet,delayed release (DR/EC) 5 mg PO DAILY PRN (Reason: constipation) rosuvastatin 20 mg tablet 20 mg PO BEDTIME aspirin 81 mg tablet,delayed release (DR/EC) 81 mg PO QAM multivitamin Tablet 1 tab PO QAM melatonin 10 mg tablet extended release 10 mg PO BEDTIME PRN (Reason: Insomnia) cholecalciferol (vitamin D3) 25 mcg (1,000 unit) tablet 25 mcg PO DAILY ondansetron 4 mg tablet,disintegrating 4 mg PO Q6H PRN (Reason: nausea and vomiting) Qty: 10 0RF acetaminophen 500 mg tablet 500 mg PO Q8H PRN (Reason: pain) zolpidem 5 mg tablet 5 mg PO BEDTIME PRN (Reason: Insomnia) ipratropium bromide 21 mcg (0.03 %) spray,non-aerosol 2 spray intranasal BID clonazepam 0.5 mg Tablet 0.5 mg PO TID Qty: 180 0RF gabapentin 100 mg Capsule 100 mg PO TID Qty: 180 0RF valsartan 160 mg tablet 160 mg PO DAILY Qty: 90 1RF amlodipine 10 mg tablet 10 mg PO DAILY Interventions: ED Discharge Assessment Last Done: 08/23/24 05:02 Discharge Date/Time: 08/23/24 05:02 Print Language: Croatian
[2024-08-23 05:02] VITALS: BP 140/96; PULSE 98; RESP 18; TEMP 36.7; O2SAT 98
== END 2024-08-23 05:02 | disposition home or self-care (01) ==
PROVIDERS: Emergency Provider Internal Medicine
DX: F41.1 Generalized anxiety disorder (principal); F43.0 Acute stress reaction; F41.0 Panic disorder [episodic paroxysmal anxiety]; R00.0 Tachycardia, unspecified; Z03.818 Encounter for observation for suspected exposure to other biological agents ruled out; Z79.899 Other long term (current) drug therapy
CPT/HCPCS: 0241U; 36415; 80053; 84484; 85025; 93005; 99283; 99284

== ENCOUNTER → 2024-08-23 02:06 | Outpatient (BNV) | payer OTHER, SELFPAY | PROVIDERS: Emergency Provider Internal Medicine; Visit Provider Internal Medicine | DX: R00.0 Tachycardia, unspecified (principal) | CPT/HCPCS: 93010 ==

== ENCOUNTER 2024-08-29 07:49 | Emergency (ER) | payer OTHER, SELFPAY ==
[2024-08-29 07:54] VITALS: BP 168/72; PULSE 92; O2SAT 96
[2024-08-29 08:24] VITALS: BP 139/75; PULSE 91; RESP 17; TEMP 37; O2SAT 96; BMI 36.0
--- NOTE | 2024-08-29 08:32 | ED.GENADULT ---
HPI - General Adult General Chief complaint: General Medical Stated complaint: FLU LIKE SX PER EMS Time Seen by Provider: 08/29/24 08:19 Source: patient, EMS and bilingual interpreter Mode of arrival: EMS Limitations: no limitations History of Present Illness ED Provider: DR. Henriquez HPI narrative: 78-year-old female well known to us patient known to have anxiety cause ambulance this morning had anxiety after having a coughing fit, patient in the emergency room feels no pain, no symptoms, requesting to be discharged home. No CP, no SOB. Related Data Home Medications ?Medication ?Instructions ?Recorded ?Confirmed mirtazapine 45 mg tablet 45 mg PO BEDTIME 08/09/20 08/20/24 omeprazole 20 mg tablet,delayed 20 mg PO DAILY@0630 08/09/20 08/20/24 release aspirin 81 mg tablet,delayed 81 mg PO QAM 01/28/24 08/20/24 release bisacodyl 5 mg tablet,delayed 5 mg PO DAILY PRN constipation 01/28/24 08/20/24 release diphenhydramine HCl 25 mg tablet 25 mg PO BEDTIME PRN itch 01/28/24 08/20/24 (Lou-Dryl) ferrous sulfate 325 mg (65 mg 325 mg PO DAILY 01/28/24 08/20/24 iron) tablet (FeroSul) melatonin 10 mg tablet,extended 10 mg PO BEDTIME PRN Insomnia 01/28/24 08/20/24 release multivitamin 1 tab PO QAM 01/28/24 08/20/24 rosuvastatin 20 mg tablet 20 mg PO BEDTIME 01/28/24 08/20/24 trazodone 50 mg tablet 50 mg PO BEDTIME 01/28/24 08/20/24 amlodipine 10 mg tablet 10 mg PO DAILY 02/09/24 08/20/24 acetaminophen 500 mg tablet 500 mg PO Q8H PRN pain 08/09/24 08/20/24 ipratropium bromide 21 mcg (0.03 2 spray intranasal BID 08/09/24 08/20/24 %) nasal spray zolpidem 5 mg tablet 5 mg PO BEDTIME PRN Insomnia 08/09/24 08/20/24 cholecalciferol (vitamin D3) 25 25 mcg PO DAILY 08/20/24 08/20/24 mcg (1,000 unit) tablet Previous Rx's ?Medication ?Instructions ?Recorded metoprolol succinate 50 mg 50 mg PO DAILY #90 tabs 09/28/20 tablet,extended release 24 hr fluticasone propionate 50 2 spray intranasal DAILY #16 grams 09/16/23 mcg/actuation nasal spray,suspension (Flonase Allergy Relief) ondansetron 4 mg disintegrating 4 mg PO Q6H PRN nausea and 04/28/24 tablet vomiting #10 tabs hydroxyzine HCl 25 mg tablet 25 mg PO TID PRN anxiety #6 tabs 08/07/24 clonazepam 0.5 mg tablet 0.5 mg PO TID #180 tabs 08/10/24 gabapentin 100 mg capsule 100 mg PO TID #180 caps 08/10/24 valsartan 160 mg tablet 160 mg PO DAILY #90 tabs 08/20/24 Allergies Allergy/AdvReac Type Severity Reaction Status Date / Time penicillin G [Penicillin G] Allergy Severe ITCHY/RASH Verified 08/29/24 08:29 Sulfa (Sulfonamide Allergy Severe ITCHY,RASH, Verified 08/29/24 08:29 Antibiotics) rash [Sulfa (Sulfonamides)] trimethoprim [From Bactrim] Allergy Severe HIVES Verified 08/29/24 08:29 Review of Systems Review of Systems: All other systems are reviewed and are negative Constitutional: Reports as per HPI and Reports no additional constitutional complaints Eyes: Reports as per HPI and Reports no additional eye complaints Reports system reviewed and no additional complaints, except as documented Cardiovascular: Reports as per HPI and Reports no additional cardiovascular complaints Respiratory: Reports as per HPI and Reports no additional respiratory complaints Gastrointestinal: Reports as per HPI and Reports no additional gastrointestinal complaints Genitourinary: Reports no additional female genitourinary complaints Musculoskeletal: Reports no additional musculoskeletal complaints Skin/Breast: Reports system reviewed and no additional complaints, except as docu Psychiatric: Reports no additional psychiatric complaints Endocrine: Reports no additional endocrine complaints Hematologic/Lymphatic: Reports no additional hematologic/lymphatic complaints Allergic/Immunologic: Reports no additional allergic/immunologic complaints Reports system reviewed and no additional complaints, except as documented and Reports Abnormal speech present FOR[facility] Past Medical History 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 Blood pressure elevated. Heart rate normal. Respiratory rate normal. Temperature normal. Oxygen saturation normal. Appearance: Anxious, Alert. Oriented X3. No acute distress. Head: Normal external exam. Normocephalic. Atraumatic. No Gomes signs noted. No raccoon eyes noted Eyes: PERRLA. EOMI. Conjunctiva and sclera normal. Eyelids normal. ENT: TM's Normal. Pharynx normal. Uvula midline. Moist mucous membranes. No trismus noted. No drooling noted. No muffled voice noted. Neck: Normal inspection. Neck supple. FROM. No adenopathy. Thyroid Normal. No meningeal signs. No neck mass noted. CVS: Normal heart rate and rhythm. Heart sound normal. No murmurs noted. Pulses normal throughout. Respiratory: No respiratory distress. Painless inspiration. Breath sounds normal. No wheezes/rales/rhonchi noted. Chest nontender. No accessory muscle usage noted or decreased air movement noted. Abdomen: Soft and nontender. Bowel sounds normal in all 4 quadrants. No distention noted. No organomegaly noted. No visible injury noted. Back: No CVA tenderness. Full range of motion noted. Skin: Skin warm and dry. Normal skin color. Normal skin turgor. No rashes/lesions/lacerations noted. Extremities: No lower extremity edema. Extremities exhibit normal range of motion. Extremities nontender. Neuro: Oriented X 3. Cranial nerve exam: II-XII are grossly intact No motor deficit. No sensory deficit. Reflexes normal. Course Reevaluation(s) Reevaluation #1: well known to our ED with history of anxiety, patient called ambulance from home because she was anxious having coughing, patient here feels fine, declining workup in the ED, VSS. Time: 08:35 Medical Decision Making Differential Diagnosis Differential Diagnoses: The differential diagnosis associated with the presentation includes ( Anxiety, medical screening exam.) Admission/Observation Consideration of admission/observation: Escalation of care including admission/observation considered Discharge Plan Discharge Clinical Impression: Anxiety Patient Disposition: Home, Self-Care Instructions: Anxiety (ED) Prescriptions: No Action metoprolol succinate 50 mg tablet extended release 24 hr 50 mg PO DAILY Qty: 90 2RF mirtazapine 45 mg Tablet 45 mg PO BEDTIME omeprazole 20 mg Tablet,Delayed Release (Dr/Ec) 20 mg PO DAILY@0630 fluticasone propionate [Flonase Allergy Relief] 50 mcg/actuation spray,suspension 2 spray intranasal DAILY Qty: 16 0RF Rx Instructions: administer into each nostril hydroxyzine HCl 25 mg tablet 25 mg PO TID PRN (Reason: anxiety) Qty: 6 0RF trazodone 50 mg tablet 50 mg PO BEDTIME ferrous sulfate [FeroSul] 325 mg (65 mg iron) tablet 325 mg PO DAILY diphenhydramine HCl [Lou-Dryl] 25 mg tablet 25 mg PO BEDTIME PRN (Reason: itch) bisacodyl 5 mg tablet,delayed release (DR/EC) 5 mg PO DAILY PRN (Reason: constipation) rosuvastatin 20 mg tablet 20 mg PO BEDTIME aspirin 81 mg tablet,delayed release (DR/EC) 81 mg PO QAM multivitamin Tablet 1 tab PO QAM melatonin 10 mg tablet extended release 10 mg PO BEDTIME PRN (Reason: Insomnia) cholecalciferol (vitamin D3) 25 mcg (1,000 unit) tablet 25 mcg PO DAILY ondansetron 4 mg tablet,disintegrating 4 mg PO Q6H PRN (Reason: nausea and vomiting) Qty: 10 0RF acetaminophen 500 mg tablet 500 mg PO Q8H PRN (Reason: pain) zolpidem 5 mg tablet 5 mg PO BEDTIME PRN (Reason: Insomnia) ipratropium bromide 21 mcg (0.03 %) spray,non-aerosol 2 spray intranasal BID clonazepam 0.5 mg Tablet 0.5 mg PO TID Qty: 180 0RF gabapentin 100 mg Capsule 100 mg PO TID Qty: 180 0RF valsartan 160 mg tablet 160 mg PO DAILY Qty: 90 1RF amlodipine 10 mg tablet 10 mg PO DAILY Print Language: Malay
--- NOTE | 2024-08-29 08:45 | PC.NURSE ---
Pt came by EMS, was in instantly asking to leave on arrival. This RN went in with investigations chief and patient was telling this RN about things that were not even the reason of her coming in. This RN was trying to redirect the patient however she just wanted to leave. MD at bedside. DC placed. pt did not want paperwork and was walked out by staff after attempting to leave multiple times.
[2024-08-29 08:50] VITALS: BP 0/0; PULSE 0; RESP 0; TEMP -17.7; TEMP 0; O2SAT 0
== END 2024-08-29 08:52 | disposition home or self-care (01) ==
PROVIDERS: Emergency Provider Emergency Medicine; PCP Internal Medicine Geriatric Medicine
DX: F41.1 Generalized anxiety disorder (principal); R05.9 Cough, unspecified; Z79.899 Other long term (current) drug therapy
CPT/HCPCS: 99284

== ENCOUNTER 2024-09-07 02:22 | Emergency (ER) | payer OTHER, SELFPAY ==
[2024-09-07 02:29] VITALS: BP 180/90; PULSE 115; O2SAT 98; BMI 29.1
[2024-09-07 02:32] VITALS: BP 135/74; PULSE 91; RESP 20; O2SAT 96
--- NOTE | 2024-09-07 02:37 | PC.NURSE ---
pt states, I just need a pill for nausea
--- NOTE | 2024-09-07 02:55 | PC.NURSE ---
pt request something for nausea, spoke with Dr Briscoe, new orders received
[2024-09-07] MEDS: Ondansetron ODT 4 MG TAB.RAPDIS TRANSLINGU (02:58)
[2024-09-07] MEDS: Acetaminophen 325 MG TABLET 650 MG PO (03:25)
--- NOTE | 2024-09-07 04:21 | PC.NURSE ---
pt states she is ready to leave, informed dr trayc
--- NOTE | 2024-09-07 04:29 | ED_ITS ---
HPI - General Adult General Chief complaint: Nausea/Vomiting/Diarrhea Stated complaint: n/v started earlier today has not improved Time Seen by Provider: 09/07/24 04:27 Source: patient and EMS Mode of arrival: EMS Limitations: no limitations History of Present Illness ED Provider: Dr. Marta Briscoe HPI narrative: Patient comes to the emergency room via ambulance complaining of feeling na useous, having headache and feeling anxious. Patient also complaining of itchiness in the abdomen. Patient denies chest pain or shortness of breath, denies hives, denies SI or HI. Related Data Home Medications ?Medication ?Instructions ?Recorded ?Confirmed mirtazapine 45 mg tablet 45 mg PO BEDTIME 08/09/20 08/20/24 omeprazole 20 mg tablet,delayed 20 mg PO DAILY@0630 08/09/20 08/20/24 release aspirin 81 mg tablet,delayed 81 mg PO QAM 01/28/24 08/20/24 release bisacodyl 5 mg tablet,delayed 5 mg PO DAILY PRN constipation 01/28/24 08/20/24 release diphenhydramine HCl 25 mg tablet 25 mg PO BEDTIME PRN itch 01/28/24 08/20/24 (Lou-Dryl) ferrous sulfate 325 mg (65 mg 325 mg PO DAILY 01/28/24 08/20/24 iron) tablet (FeroSul) melatonin 10 mg tablet,extended 10 mg PO BEDTIME PRN Insomnia 01/28/24 08/20/24 release multivitamin 1 tab PO QAM 01/28/24 08/20/24 rosuvastatin 20 mg tablet 20 mg PO BEDTIME 01/28/24 08/20/24 trazodone 50 mg tablet 50 mg PO BEDTIME 01/28/24 08/20/24 amlodipine 10 mg tablet 10 mg PO DAILY 02/09/24 08/20/24 acetaminophen 500 mg tablet 500 mg PO Q8H PRN pain 08/09/24 08/20/24 ipratropium bromide 21 mcg (0.03 2 spray intranasal BID 08/09/24 08/20/24 %) nasal spray zolpidem 5 mg tablet 5 mg PO BEDTIME PRN Insomnia 08/09/24 08/20/24 cholecalciferol (vitamin D3) 25 25 mcg PO DAILY 08/20/24 08/20/24 mcg (1,000 unit) tablet Previous Rx's ?Medication ?Instructions ?Recorded metoprolol succinate 50 mg 50 mg PO DAILY #90 tabs 09/28/20 tablet,extended release 24 hr fluticasone propionate 50 2 spray intranasal DAILY #16 grams 09/16/23 mcg/actuation nasal spray,suspension (Flonase Allergy Relief) ondansetron 4 mg disintegrating 4 mg PO Q6H PRN nausea and 04/28/24 tablet vomiting #10 tabs hydroxyzine HCl 25 mg tablet 25 mg PO TID PRN anxiety #6 tabs 08/07/24 clonazepam 0.5 mg tablet 0.5 mg PO TID #180 tabs 08/10/24 gabapentin 100 mg capsule 100 mg PO TID #180 caps 08/10/24 valsartan 160 mg tablet 160 mg PO DAILY #90 tabs 08/20/24 Allergies Allergy/AdvReac Type Severity Reaction Status Date / Time penicillin G [Penicillin G] Allergy Severe ITCHY/RASH Verified 09/07/24 02:31 Sulfa (Sulfonamide Allergy Severe ITCHY,RASH, Verified 09/07/24 02:31 Antibiotics) rash [Sulfa (Sulfonamides)] trimethoprim [From Bactrim] Allergy Severe HIVES Verified 09/07/24 02:31 Review of Systems Review of Systems: Constitutional : No Weight loss, No Fever, No Chills, No Night Sweats, No Fatigue, No Malaise ENT/Mouth : No Hearing loss, No Ear Pain, No Nasal Congestion, No Sinus Pain, No Hoarseness, No sore throat, No Rhinorrhea, No Swallowing Difficulty Eyes: No Eye Pain, No Swelling, No Redness, No Foreign Body, No Discharge, No Vision Changes Cardiovascular : No Chest Pain, No SOB, No Dyspnea on Exertion, No Orthopnea, No Edema, No Palpitations Respiratory : No Cough, No Sputum, No Wheezing, No Smoke Exposure, No Dyspnea Gastrointestinal : Complaining of Nausea, No Vomiting, No Diarrhea, No Constipation, No abdominal Pain, No Hematochezia, No Melena Genitourinary : no irregular bleeding, No Dysuria, No Urinary Frequency, No Hematuria, No Urinary Incontinence, No Urgency, No Flank Pain, No Urinary Flow Changes, No Hesitancy Musculoskeletal : No joint pain, No Myalgias, No Joint Swelling Skin : No Skin Lesions, No rash Neuro : No Weakness, No Numbness, No Paresthesias, No Loss of Consciousness, No Dizziness, complaining of Headache Psych : Complaining of Anxiety/Panic, No Depression, No SI/HI/AH/VH, No Social Issues, Heme/Lymph: No Bruising, No Bleeding,No Lymphadenopathy Endocrine : No Polyuria, No Polydipsia, No Temperature Intolerance [facility] Past Medical History 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 Oriented X3. No acute distress. Eyes: Pupils equal, round and reactive to light. ENT: Pharynx normal. Neck: Normal inspection. Neck supple. No lymph nodes noted. No crepitus CVS: Normal heart rate and rhythm. Pulses normal. Normal S1 and S2 Respiratory: No respiratory distress. Breath sounds normal. No Wheezing. No rales Abdomen: Soft and nontender. No rigidity. No distention. Skin: Skin warm and dry. Normal skin color. Normal skin turgor. Extremities: No lower extremity edema. No Lacerations. No Rash Neuro: Oriented X 3. No motor deficit. No sensory deficit. Moving all extremities. No slurred speech. CN 2 through 12 grossly intact Psych: calm, cooperative, normal affect Medications Administered Discontinued Medications Generic Name Dose Route Start Last Admin Trade Name Freq PRN Reason Stop Dose Admin Acetaminophen 650 mg 09/07/24 03:21 09/07/24 03:25 Acetaminophen 325 Mg Tablet PO 09/07/24 03:22 650 mg ONCE ONE Administration Ondansetron HCl 4 mg 09/07/24 02:54 09/07/24 02:58 Ondansetron Odt 4 Mg Tab.Robin ENAMORADOU 09/07/24 02:55 4 mg ONCE ONE Administration Medical Decision Making Medical Decision Making MDM Narrative: Patient was given acetaminophen for the headache, Zofran for the nausea and hydroxyzine for the itching and anxiety. Patient states that she feels better. Patient ready for discharge Discharge Plan Discharge Clinical Impression: Anxiety, Headache, Nausea Patient Disposition: Home, Self-Care Instructions: Anxiety (ED), Acute Headache (ED) Additional Instructions: Please follow-up with your primary care physician tomorrow. If you have any worsening or new symptoms, please return to the emergency room or call 911 Prescriptions: No Action metoprolol succinate 50 mg tablet extended release 24 hr 50 mg PO DAILY Qty: 90 2RF mirtazapine 45 mg Tablet 45 mg PO BEDTIME omeprazole 20 mg Tablet,Delayed Release (Dr/Ec) 20 mg PO DAILY@0630 fluticasone propionate [Flonase Allergy Relief] 50 mcg/actuation spray,suspension 2 spray intranasal DAILY Qty: 16 0RF Rx Instructions: administer into each nostril hydroxyzine HCl 25 mg tablet 25 mg PO TID PRN (Reason: anxiety) Qty: 6 0RF trazodone 50 mg tablet 50 mg PO BEDTIME ferrous sulfate [FeroSul] 325 mg (65 mg iron) tablet 325 mg PO DAILY diphenhydramine HCl [Lou-Dryl] 25 mg tablet 25 mg PO BEDTIME PRN (Reason: itch) bisacodyl 5 mg tablet,delayed release (DR/EC) 5 mg PO DAILY PRN (Reason: constipation) rosuvastatin 20 mg tablet 20 mg PO BEDTIME aspirin 81 mg tablet,delayed release (DR/EC) 81 mg PO QAM multivitamin Tablet 1 tab PO QAM melatonin 10 mg tablet extended release 10 mg PO BEDTIME PRN (Reason: Insomnia) cholecalciferol (vitamin D3) 25 mcg (1,000 unit) tablet 25 mcg PO DAILY ondansetron 4 mg tablet,disintegrating 4 mg PO Q6H PRN (Reason: nausea and vomiting) Qty: 10 0RF acetaminophen 500 mg tablet 500 mg PO Q8H PRN (Reason: pain) zolpidem 5 mg tablet 5 mg PO BEDTIME PRN (Reason: Insomnia) ipratropium bromide 21 mcg (0.03 %) spray,non-aerosol 2 spray intranasal BID clonazepam 0.5 mg Tablet 0.5 mg PO TID Qty: 180 0RF gabapentin 100 mg Capsule 100 mg PO TID Qty: 180 0RF valsartan 160 mg tablet 160 mg PO DAILY Qty: 90 1RF amlodipine 10 mg tablet 10 mg PO DAILY Print Language: Portuguese
[2024-09-07] MEDS: hydrOXYzine HCL 50 MG TABLET PO (04:32)
[2024-09-07 04:38] VITALS: BP 135/74; PULSE 91; RESP 20; TEMP 37.1; O2SAT 96
== END 2024-09-07 04:39 | disposition home or self-care (01) ==
PROVIDERS: Emergency Provider Emergency Medicine
DX: R11.2 Nausea with vomiting, unspecified (principal); R51.9 Headache, unspecified; F41.9 Anxiety disorder, unspecified
CPT/HCPCS: 99283; 99284

== ENCOUNTER 2024-09-09 03:25 | Emergency (ER) | payer OTHER, SELFPAY ==
[2024-09-09 03:29] VITALS: BP 122/68; BP 144/75; PULSE 85; PULSE 96; RESP 16; TEMP 36.9; O2SAT 97; O2SAT 99; BMI 28.1
[2024-09-09 05:19] VITALS: BP 133/68; PULSE 77; RESP 18; TEMP 36.8; O2SAT 98
--- NOTE | 2024-09-09 05:44 | ED.GENADULT ---
HPI - General Adult General Chief complaint: General Medical Stated complaint: BP concern, hx HTN, A&Ox4, Ambulatory Time Seen by Provider: 09/09/24 05:39 Source: patient Mode of arrival: ambulatory Limitations: no limitations History of Present Illness ED Provider: Dr. Fernandez HPI narrative: Patient is 78 female with chronic anxiety who presents with worsening feelings to her whole body because he psychiatrist took her off medications. Now she is much more anxious Related Data Home Medications ?Medication ?Instructions ?Recorded ?Confirmed mirtazapine 45 mg tablet 45 mg PO BEDTIME 08/09/20 08/20/24 omeprazole 20 mg tablet,delayed 20 mg PO DAILY@0630 08/09/20 08/20/24 release aspirin 81 mg tablet,delayed 81 mg PO QAM 01/28/24 08/20/24 release bisacodyl 5 mg tablet,delayed 5 mg PO DAILY PRN constipation 01/28/24 08/20/24 release diphenhydramine HCl 25 mg tablet 25 mg PO BEDTIME PRN itch 01/28/24 08/20/24 (Lou-Dryl) ferrous sulfate 325 mg (65 mg 325 mg PO DAILY 01/28/24 08/20/24 iron) tablet (FeroSul) melatonin 10 mg tablet,extended 10 mg PO BEDTIME PRN Insomnia 01/28/24 08/20/24 release multivitamin 1 tab PO QAM 01/28/24 08/20/24 rosuvastatin 20 mg tablet 20 mg PO BEDTIME 01/28/24 08/20/24 trazodone 50 mg tablet 50 mg PO BEDTIME 01/28/24 08/20/24 amlodipine 10 mg tablet 10 mg PO DAILY 02/09/24 08/20/24 acetaminophen 500 mg tablet 500 mg PO Q8H PRN pain 08/09/24 08/20/24 ipratropium bromide 21 mcg (0.03 2 spray intranasal BID 08/09/24 08/20/24 %) nasal spray zolpidem 5 mg tablet 5 mg PO BEDTIME PRN Insomnia 08/09/24 08/20/24 cholecalciferol (vitamin D3) 25 25 mcg PO DAILY 08/20/24 08/20/24 mcg (1,000 unit) tablet Previous Rx's ?Medication ?Instructions ?Recorded metoprolol succinate 50 mg 50 mg PO DAILY #90 tabs 09/28/20 tablet,extended release 24 hr fluticasone propionate 50 2 spray intranasal DAILY #16 grams 09/16/23 mcg/actuation nasal spray,suspension (Flonase Allergy Relief) ondansetron 4 mg disintegrating 4 mg PO Q6H PRN nausea and 04/28/24 tablet vomiting #10 tabs hydroxyzine HCl 25 mg tablet 25 mg PO TID PRN anxiety #6 tabs 08/07/24 clonazepam 0.5 mg tablet 0.5 mg PO TID #180 tabs 08/10/24 gabapentin 100 mg capsule 100 mg PO TID #180 caps 08/10/24 valsartan 160 mg tablet 160 mg PO DAILY #90 tabs 08/20/24 hydroxyzine HCl 25 mg tablet 25 mg PO TID PRN anxiety #20 tabs 09/09/24 Allergies Allergy/AdvReac Type Severity Reaction Status Date / Time penicillin G [Penicillin G] Allergy Severe ITCHY/RASH Verified 09/09/24 03:31 Sulfa (Sulfonamide Allergy Severe ITCHY,RASH, Verified 09/09/24 03:31 Antibiotics) rash [Sulfa (Sulfonamides)] trimethoprim [From Bactrim] Allergy Severe HIVES Verified 09/09/24 03:31 Review of Systems Review of Systems: Yes all other systems are reviewed and are negative Neurologic: Denies Sensory deficit (Neuro) [facility] Past Medical History 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 or 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 (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 billing specialist) Alcohol intake: never Patient Tobacco Use Status: Never used Tobacco Smoked in Last 30 Days: No Use of substances other than those prescribed or required for medical reasons: No Advance Directives: Yes Advance Directives on File: Yes Advance Directives Date on File: 01/28/24 Do you have a plan to hurt others: No Plan service: No Physical Exam ED Vital Signs: Vital Signs - 24 hr 09/09/24 03:29 09/09/24 05:19 Temperature 98.4 F 98.2 F Pulse Rate 85 77 Respiratory Rate 16 18 Blood Pressure 144/75 H 133/68 Pulse Oximetry 97 98 Oxygen Delivery Method Room Air Room Air BMI result Body Mass Index 28.1 Const Other: anxious, pressured speech General: healthy appearing Nutritional Appearance: average body habitus Orientation/consciousness: oriented to person and patient oriented x3 Limitations: no limitations HENMT Head: Yes normal to inspection Ears: external ears normal General nose exam: Normal external nose present Mouth: Normal oral and palatal mucosa present and oropharynx normal Throat: Yes posterior oropharynx normal Eyes General: appearance normal, both eyes and all related structures Neck Neck: Yes normal visual inspection Chest Chest palpation & inspection: normal inspection of the chest Resp Auscultation: clear to auscultation bilaterally Cardio Jugular venous distension: no JVD Rate: regular rate Rhythm: regular rhythm Heart sounds: S1 normal heart sound present and S2 normal heart sound present GI Inspection: Yes normal to inspection Palpation (GI): Soft to palpation, nontender and No hepatosplenomegaly present Auscultation: normal bowel sounds General: Yes no CVA tenderness Back/Spine/Pelvis Back: no CVA tenderness Skin General skin exam: no rashes or lesions noted Neuro General: oriented to person and patient oriented x3 Cranial nerves: Yes CN's II-XII intact bilaterally Motor exam (neuro): 5/5 motor strength present throughout Sensory Exam: No Sensory deficit (Neuro) Extrem General: Yes normal to inspection Psych Other: anxious Course Reevaluation(s) Reevaluation #1: will place patient on hydroxizine for her anxiety Time: 05:48 Medical Decision Making Differential Diagnosis Differential Diagnoses: The differential diagnosis associated with the presentation includes (generalized anxiety, hypertension) Independent Historian Clinical information obtained from an independent historian. History obtained from or confirmed by: EMS External Record Review External record reviewed: Outpatient record Chronic Conditions Patient?s care impacted by: Other (psychiatric) Social Determinants Patient?s care significantly limited by Social Determinants of Health including: Low income Discharge Plan Discharge Clinical Impression: Generalized anxiety disorder with panic attacks Patient Disposition: Home, Self-Care Instructions: Anxiety (ED) Prescriptions: New hydroxyzine HCl 25 mg tablet 25 mg PO TID PRN (Reason: anxiety) Qty: 20 0RF No Action metoprolol succinate 50 mg tablet extended release 24 hr 50 mg PO DAILY Qty: 90 2RF mirtazapine 45 mg Tablet 45 mg PO BEDTIME omeprazole 20 mg Tablet,Delayed Release (Dr/Ec) 20 mg PO DAILY@0630 fluticasone propionate [Flonase Allergy Relief] 50 mcg/actuation spray,suspension 2 spray intranasal DAILY Qty: 16 0RF Rx Instructions: administer into each nostril hydroxyzine HCl 25 mg tablet 25 mg PO TID PRN (Reason: anxiety) Qty: 6 0RF trazodone 50 mg tablet 50 mg PO BEDTIME ferrous sulfate [FeroSul] 325 mg (65 mg iron) tablet 325 mg PO DAILY diphenhydramine HCl [Lou-Dryl] 25 mg tablet 25 mg PO BEDTIME PRN (Reason: itch) bisacodyl 5 mg tablet,delayed release (DR/EC) 5 mg PO DAILY PRN (Reason: constipation) rosuvastatin 20 mg tablet 20 mg PO BEDTIME aspirin 81 mg tablet,delayed release (DR/EC) 81 mg PO QAM multivitamin Tablet 1 tab PO QAM melatonin 10 mg tablet extended release 10 mg PO BEDTIME PRN (Reason: Insomnia) cholecalciferol (vitamin D3) 25 mcg (1,000 unit) tablet 25 mcg PO DAILY ondansetron 4 mg tablet,disintegrating 4 mg PO Q6H PRN (Reason: nausea and vomiting) Qty: 10 0RF acetaminophen 500 mg tablet 500 mg PO Q8H PRN (Reason: pain) zolpidem 5 mg tablet 5 mg PO BEDTIME PRN (Reason: Insomnia) ipratropium bromide 21 mcg (0.03 %) spray,non-aerosol 2 spray intranasal BID clonazepam 0.5 mg Tablet 0.5 mg PO TID Qty: 180 0RF gabapentin 100 mg Capsule 100 mg PO TID Qty: 180 0RF valsartan 160 mg tablet 160 mg PO DAILY Qty: 90 1RF amlodipine 10 mg tablet 10 mg PO DAILY Referrals: Wale,MD Nitin [Primary Care Provider] - 3 days Print Language: Lao
[2024-09-09] MEDS: hydrOXYzine HCL 25 MG TABLET PO (05:56)
[2024-09-09 06:01] VITALS: BP 133/68; PULSE 77; RESP 18; TEMP 36.8; O2SAT 98
== END 2024-09-09 06:02 | disposition home or self-care (01) ==
PROVIDERS: Emergency Provider Emergency Medicine; PCP Internal Medicine Geriatric Medicine
DX: F41.1 Generalized anxiety disorder (principal); F41.0 Panic disorder [episodic paroxysmal anxiety]; F03.90 Unspecified dementia, unspecified severity, without behavioral disturbance, psychotic disturbance, mood disturbance, and anxiety
CPT/HCPCS: 99283; 99284

== ENCOUNTER 2024-09-14 09:38 | Emergency (ER) | payer OTHER, SELFPAY ==
--- NOTE | ~2024-09-14 | XR_ITS ---
EXAMINATION: XR KNEE, LEFT CLINICAL INFORMATION: Trauma after falling COMPARISON: None available. TECHNIQUE: Four views of the left knee. FINDINGS: No joint effusion. There is chronic osseous irregularity related to the anterior tibial tubercle. The patellar tendon is intact. There is no acute fracture, dislocation or destructive process. XR/XR knee LT 4V IMPRESSION: No acute findings. No joint effusion. Electronically signed by: Kyle Porter MD 09/14/2024 10:35 AM [facility]
--- NOTE | 2024-09-14 09:47 | ED_ITS ---
HPI - Extremity Injury (Lower) General Chief Complaint: Extremity Injury, Lower Stated Complaint: knee pain after fall Time Seen by Provider: 09/14/24 09:47 Source: patient, EMS, RN notes reviewed, old records reviewed and sql ssis developer ([place]) Mode of arrival: EMS Limitations: language barrier ([place] speaking) History of Present Illness ED Provider: JUDSON LINDSAY PA-C HPI Narrative: 78 year old Cuban speaking female with pmhx significant for KAL, major cognitive disorder, mixed HDL, GERD, HTN presents to the ED today via EMS from home for evaluation of left knee pain s/p mechanical fall occurring at 0900 this morning (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 Reports walking across the street from her house to the store this morning. Admits to missing a step, losing her balance, and falling down 2 steps, landing on her left knee. She adamantly denies head strike or LOC. She is not on anticoagulation. She was able to ambulate back into her house to grab an AZAEL wrap from her bedroom which she applied to her left knee before calling EMS. 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 Pain is isolated to anterior left knee. No radiation. No new numbness/tingling/weakness to the LLE. Denies headache, dizziness, chest pain, sob. Related Data Home Medications ?Medication ?Instructions ?Recorded ?Confirmed mirtazapine 45 mg tablet 45 mg PO BEDTIME 08/09/20 08/20/24 omeprazole 20 mg tablet,delayed 20 mg PO DAILY@0630 08/09/20 08/20/24 release aspirin 81 mg tablet,delayed 81 mg PO QAM 01/28/24 08/20/24 release bisacodyl 5 mg tablet,delayed 5 mg PO DAILY PRN constipation 01/28/24 08/20/24 release diphenhydramine HCl 25 mg tablet 25 mg PO BEDTIME PRN itch 01/28/24 08/20/24 (Lou-Dryl) ferrous sulfate 325 mg (65 mg 325 mg PO DAILY 01/28/24 08/20/24 iron) tablet (FeroSul) melatonin 10 mg tablet,extended 10 mg PO BEDTIME PRN Insomnia 01/28/24 08/20/24 release multivitamin 1 tab PO QAM 01/28/24 08/20/24 rosuvastatin 20 mg tablet 20 mg PO BEDTIME 01/28/24 08/20/24 trazodone 50 mg tablet 50 mg PO BEDTIME 01/28/24 08/20/24 amlodipine 10 mg tablet 10 mg PO DAILY 02/09/24 08/20/24 acetaminophen 500 mg tablet 500 mg PO Q8H PRN pain 08/09/24 08/20/24 ipratropium bromide 21 mcg (0.03 2 spray intranasal BID 08/09/24 08/20/24 %) nasal spray zolpidem 5 mg tablet 5 mg PO BEDTIME PRN Insomnia 08/09/24 08/20/24 cholecalciferol (vitamin D3) 25 25 mcg PO DAILY 08/20/24 08/20/24 mcg (1,000 unit) tablet Previous Rx's ?Medication ?Instructions ?Recorded metoprolol succinate 50 mg 50 mg PO DAILY #90 tabs 09/28/20 tablet,extended release 24 hr fluticasone propionate 50 2 spray intranasal DAILY #16 grams 09/16/23 mcg/actuation nasal spray,suspension (Flonase Allergy Relief) ondansetron 4 mg disintegrating 4 mg PO Q6H PRN nausea and 04/28/24 tablet vomiting #10 tabs hydroxyzine HCl 25 mg tablet 25 mg PO TID PRN anxiety #6 tabs 08/07/24 clonazepam 0.5 mg tablet 0.5 mg PO TID #180 tabs 08/10/24 gabapentin 100 mg capsule 100 mg PO TID #180 caps 08/10/24 valsartan 160 mg tablet 160 mg PO DAILY #90 tabs 08/20/24 hydroxyzine HCl 25 mg tablet 25 mg PO TID PRN anxiety #20 tabs 09/09/24 Allergies Allergy/AdvReac Type Severity Reaction Status Date / Time penicillin G [Penicillin G] Allergy Severe ITCHY/RASH Verified 09/14/24 09:54 Sulfa (Sulfonamide Allergy Severe ITCHY,RASH, Verified 09/14/24 09:54 Antibiotics) rash [Sulfa (Sulfonamides)] trimethoprim [From Bactrim] Allergy Severe HIVES Verified 09/14/24 09:54 Review of Systems Review of Systems: Constitutional: No fever, chills, fatigue, night sweats, weight changes ENT/Mouth: No ear pain, hearing loss, nasal congestion, sinus pain, rhinorrhea, sore throat Eyes: No eye pain, swelling, redness, vision changes, discharge Cardio: No chest pain, palpitations, JAMISON, orthopnea, peripheral edema Pulm: No SOB, cough, sputum, wheezing, dyspnea, hemoptysis GI: No nausea, vomiting, hematemesis, abdominal pain, diarrhea, constipation, hematochezia, melena : No irregular bleeding, dysuria, frequency, urgency, hesitancy, hematuria, flank pain, urinary flow changes, urinary incontinence or retention MSK: No back pain, neck pain, joint pain, myalgias, +left knee pain Skin: No lesions, rashes Neuro: No weakness, numbness, paresthesias, LOC, dizziness, headache Psych: No anxiety/panic, depression, SI/HI, AH/VH All other systems reviewed and are negative. [facility] Past Medical History Attestation statement: The following information was validated with the patient. 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 or 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 (weight caller) Unable to assess alcohol history related to: Unknown Alcohol intake: never Patient Tobacco Use Status: Never used Tobacco Smoked in Last 30 Days: No Use of substances other than those prescribed or required for medical reasons: Unknown Advance Directives: Yes Advance Directives on File: Yes Advance Directives Date on File: 01/28/24 Do you have a plan to hurt others: No Plan service: No Physical Exam Vital Signs: Vital Signs: Last Vital Signs Temp 97.3 F 09/14/24 11:04 Pulse 77 09/14/24 11:04 Resp 16 09/14/24 11:04 BP 128/66 09/14/24 11:04 Pulse Ox 94 09/14/24 11:04 O2 Del Method Room Air 09/14/24 11:04 BMI result Body Mass Index 29.9 vital signs stable General: Well appearing, in no acute distress. Skin: Warm, dry, intact. No rashes or lesions. Head: Normocephalic, atraumatic. EENT: Hearing is intact b/l. Conjunctiva clear. PERRLA. EOM intact. Moist mucous membranes.? Cardiac: Chest wall symmetric. RRR. Lungs: Normal respiratory effort without accessory muscle use. CTA bilaterally. Back: No midline spinous or paraspinal tenderness. No step off deformity. Ext: no noted effusion or overlying skin changes. FROM intact to left knee with minimal discomfort on flexion. Slightly ttp over anterior left knee without palpable deformity or crepitus. negative anterior/ posterior drawer test. 2+ popliteal, PT/DP pulse intact. No calf tenderness. no tenderness along achilles tendon. Ambulating with steady gait. Neuro: AOx3. Normal speech. Strength 5/5 intact throughout. Sensation intact to light touch. NV intact distally. Course Course Course Narrative: 1110 -- knee xray without fracture. physical exam is not consistent w/ ligament or tendon injury. azael wrap applied. provided with one dose of oxycodone in ED. likely contusion secondary to mechanical fall. educated on [employer] therapy. her family member will be driving her home today. Patient has remained stable throughout ED visit today. Discussed worrisome signs and symptoms and when to return to the ED. All questions answered at this time. Patient is agreeable with disposition and stable for discharge. 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 vitals stable. she is nontoxic appearing and in NAD. on exam, there is no noted effusion or overlying skin changes. FROM intact to left knee with minimal discomfort on flexion. Slightly ttp over anterior left knee without palpable deformity or crepitus. negative anterior/ posterior drawer test. 2+ popliteal, PT/DP pulse intact. No calf tenderness. no tenderness along achilles tendon. Ambulating with steady gait. Differential diagnosis includes fracture, contusion, dislocation, arthritis. No concern for acute ligament or tendon injury. Presentation not consistent with DVT, arterial occlusion, nv compromise or threat to limb. Plan for xrays, pain control, and re-evaluation. Differential Diagnosis Differential Diagnoses: The differential diagnosis associated with the presentation includes as above. Admission/Observation not indicated. Independent Interpretation I performed an independent interpretation of an: Plain X-Ray Interpretation: xray left knee without acute fracture, agree with radiologist's interpretation Radiology Impression Discussion of test interpretation with radiology: I have reviewed the radiologist's reading. Radiologist Impression: EXAMINATION: XR KNEE, LEFT CLINICAL INFORMATION: Trauma after falling COMPARISON: None available. TECHNIQUE: Four views of the left knee. FINDINGS: No joint effusion. There is chronic osseous irregularity related to the anterior tibial tubercle. The patellar tendon is intact. There is no acute fracture, dislocation or destructive process. XR/XR knee LT 4V IMPRESSION: No acute findings. No joint effusion. Electronically signed by: Kyle Porter MD 09/14/2024 10:35 AM [facility] Prescription Management I considered prescription management with: Pain Medication Social Determinants Patient?s care significantly limited by Social Determinants of Health including: Other Social Determinant of Health Procedures Orthopedic Splinting/Casting Injury #1: Side: left Lower Extremity Injury Location: knee Lower Extremity Immobilizer: Azael wrap Critical Care Time Critical Care Time Critical Care Time: No Discharge Plan Discharge Clinical Impression: Contusion of knee, left Patient Disposition: Home, Self-Care Instructions: Contusion in Adults (ED) Additional Instructions: You were evaluated in the ED today for left knee pain following fall. Your xrays are normal. You were provided with an AZAEL wrap for compression Utilize RICE therapy - rest, ice, compression, elevation. Take tylenol 650 mg every 4-6 hours as needed for pain/ discomfort. Return with new or worsening symptoms. In the case of an emergency call 911. Prescriptions: No Action metoprolol succinate 50 mg tablet extended release 24 hr 50 mg PO DAILY Qty: 90 2RF mirtazapine 45 mg Tablet 45 mg PO BEDTIME omeprazole 20 mg Tablet,Delayed Release (Dr/Ec) 20 mg PO DAILY@0630 fluticasone propionate [Flonase Allergy Relief] 50 mcg/actuation spray,suspension 2 spray intranasal DAILY Qty: 16 0RF Rx Instructions: administer into each nostril hydroxyzine HCl 25 mg tablet 25 mg PO TID PRN (Reason: anxiety) Qty: 6 0RF hydroxyzine HCl 25 mg tablet 25 mg PO TID PRN (Reason: anxiety) Qty: 20 0RF trazodone 50 mg tablet 50 mg PO BEDTIME ferrous sulfate [FeroSul] 325 mg (65 mg iron) tablet 325 mg PO DAILY diphenhydramine HCl [Lou-Dryl] 25 mg tablet 25 mg PO BEDTIME PRN (Reason: itch) bisacodyl 5 mg tablet,delayed release (DR/EC) 5 mg PO DAILY PRN (Reason: constipation) rosuvastatin 20 mg tablet 20 mg PO BEDTIME aspirin 81 mg tablet,delayed release (DR/EC) 81 mg PO QAM multivitamin Tablet 1 tab PO QAM melatonin 10 mg tablet extended release 10 mg PO BEDTIME PRN (Reason: Insomnia) cholecalciferol (vitamin D3) 25 mcg (1,000 unit) tablet 25 mcg PO DAILY ondansetron 4 mg tablet,disintegrating 4 mg PO Q6H PRN (Reason: nausea and vomiting) Qty: 10 0RF acetaminophen 500 mg tablet 500 mg PO Q8H PRN (Reason: pain) zolpidem 5 mg tablet 5 mg PO BEDTIME PRN (Reason: Insomnia) ipratropium bromide 21 mcg (0.03 %) spray,non-aerosol 2 spray intranasal BID clonazepam 0.5 mg Tablet 0.5 mg PO TID Qty: 180 0RF gabapentin 100 mg Capsule 100 mg PO TID Qty: 180 0RF valsartan 160 mg tablet 160 mg PO DAILY Qty: 90 1RF amlodipine 10 mg tablet 10 mg PO DAILY Referrals: Wale,MD Nitin [Primary Care Provider] - Interventions: ED Discharge Assessment Last Done: 09/14/24 11:04 Discharge Date/Time: 09/14/24 11:18 Print Language: Cuban
[2024-09-14 09:52] VITALS: BP 146/78; BP 154/99; PULSE 78; PULSE 90; RESP 16; TEMP 37.5; O2SAT 94; O2SAT 97; BMI 29.9
[2024-09-14] MEDS: oxyCODONE HCl Immed Release 5 MG TABLET PO (10:58)
[2024-09-14 11:00] VITALS: BP 128/66; PULSE 77; RESP 16; TEMP 36.3; O2SAT 94
[2024-09-14 11:04] VITALS: BP 128/66; PULSE 77; RESP 16; TEMP 36.3; O2SAT 94
== END 2024-09-14 11:18 | disposition home or self-care (01) ==
PROVIDERS: Emergency Provider Emergency Medicine; PCP Internal Medicine Geriatric Medicine
DX: S80.02XA Contusion of left knee, initial encounter (principal); M25.562 Pain in left knee; W01.0XXA Fall on same level from slipping, tripping and stumbling without subsequent striking against object, initial encounter; Y93.89 Activity, other specified; Y92.89 Other specified places as the place of occurrence of the external cause; Y99.8 Other external cause status
CPT/HCPCS: 29505; 73564; 99283; 99284

== ENCOUNTER 2024-09-19 06:46 | Emergency (ER) | payer OTHER, SELFPAY ==
--- NOTE | ~2024-09-19 | CT_ITS ---
EXAMINATION: CT cervical brain and spine without contrast. CLINICAL INDICATION: Fall. Neck pain. COMPARISON: CT cervical spine 07/09/2024. TECHNIQUE: 5 mm thin axial and reformatted 2 mm thin sagittal and coronal images of brain were obtained. 3 mm thin axial and reformatted 2 mm thin sagittal and coronal images of cervical spine were obtained. DLP [id number] examination was performed using dose optimization technique as appropriate, variously including the following: Automated exposure control Adjustment of MA and/or KV according to patient size(this includes techniques or standardized protocols for targeted exams where dose is matched to indication/reason for exam; extremities or head. Use of iterative reconstruction techniques. FINDINGS: Cervical spine: There is mild straightening of cervical lordosis. The vertebral heights and alignment is normal. There is loss of C5-6 disc height with moderate bridging posterior osteophyte extending into ventral spinal canal. Rest of the disc heights are normal. The craniovertebral junction and C1-C2 alignment is normal. There is no visible acute fracture, dislocation or subluxation seen. There is moderate left C2-3, C3-4, C4-5 and right C2-3, C3-4 and C7-T1 facet joint arthropathy. Deformity C7 spinous process, unchanged. No aggressive lytic or sclerotic process seen. The prevertebral and paravertebral soft tissues are normal. Thyroid lobes are symmetric and normal. The central trachea and bronchi are widely patent. Bilateral parotid, submandibular glands and thyroid lobes are symmetrical and normal. There is a 4 mm calcification right lung apex. Brain: There is no acute intra-axial, extra-axial bleed, masses or midline shift. The ruiz to white matter differentiation is maintained normal. The lateral ventricles are symmetrical in size and configuration but mildly enlarged. There is no acute infarction evolution. Bone windows reveal no calvarial abnormality. There is no scalp soft tissue abnormality. Bilateral paranasal sinuses and mastoid air cells are well-aerated. CT/CT cervical spine wo IV con IMPRESSION: Degenerative disc changes C5-6 disc level with ventral and posterior spondylosis. Facet joint arthropathy as described above. No visible acute fracture, dislocation or subluxation seen. No acute intracranial process seen. Electronically signed by: Julius Major MD 09/19/2024 09:07 AM EST
--- NOTE | ~2024-09-19 | CT_ITS ---
EXAMINATION: CT cervical brain and spine without contrast. CLINICAL INDICATION: Fall. Neck pain. COMPARISON: CT cervical spine 07/09/2024. TECHNIQUE: 5 mm thin axial and reformatted 2 mm thin sagittal and coronal images of brain were obtained. 3 mm thin axial and reformatted 2 mm thin sagittal and coronal images of cervical spine were obtained. DLP [address] examination was performed using dose optimization technique as appropriate, variously including the following: Automated exposure control Adjustment of MA and/or KV according to patient size(this includes techniques or standardized protocols for targeted exams where dose is matched to indication/reason for exam; extremities or head. Use of iterative reconstruction techniques. FINDINGS: Cervical spine: There is mild straightening of cervical lordosis. The vertebral heights and alignment is normal. There is loss of C5-6 disc height with moderate bridging posterior osteophyte extending into ventral spinal canal. Rest of the disc heights are normal. The craniovertebral junction and C1-C2 alignment is normal. There is no visible acute fracture, dislocation or subluxation seen. There is moderate left C2-3, C3-4, C4-5 and right C2-3, C3-4 and C7-T1 facet joint arthropathy. Deformity C7 spinous process, unchanged. No aggressive lytic or sclerotic process seen. The prevertebral and paravertebral soft tissues are normal. Thyroid lobes are symmetric and normal. The central trachea and bronchi are widely patent. Bilateral parotid, submandibular glands and thyroid lobes are symmetrical and normal. There is a 4 mm calcification right lung apex. Brain: There is no acute intra-axial, extra-axial bleed, masses or midline shift. The ruiz to white matter differentiation is maintained normal. The lateral ventricles are symmetrical in size and configuration but mildly enlarged. There is no acute infarction evolution. Bone windows reveal no calvarial abnormality. There is no scalp soft tissue abnormality. Bilateral paranasal sinuses and mastoid air cells are well-aerated. CT/CT head/brain wo IV con IMPRESSION: Degenerative disc changes C5-6 disc level with ventral and posterior spondylosis. Facet joint arthropathy as described above. No visible acute fracture, dislocation or subluxation seen. No acute intracranial process seen. Electronically signed by: Julius Major MD 09/19/2024 09:07 AM [facility]
[2024-09-19 06:54] VITALS: BP 142/76; BP 145/62; PULSE 80; PULSE 85; RESP 18; TEMP 36.7; O2SAT 96; O2SAT 98; BMI 31.1
[2024-09-19] MEDS: Acetaminophen 325 MG TABLET 650 MG PO (07:47)
--- NOTE | 2024-09-19 07:48 | ED_ITS ---
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 Henriquez HPI Narrative: 78-year-old female came in for evaluation after a fall this morning, patient woke up and was dark in room hit a nightstand next to her causing her to fall and hit her head, no LOC, patient was able to protect herself from complete falling, complaining of slight headache, no neck pain, no weakness, no numbness, no CP, no abdominal pain. Related Data Home Medications ?Medication ?Instructions ?Recorded ?Confirmed mirtazapine 45 mg tablet 45 mg PO BEDTIME 08/09/20 08/20/24 omeprazole 20 mg tablet,delayed 20 mg PO DAILY@0630 08/09/20 08/20/24 release aspirin 81 mg tablet,delayed 81 mg PO QAM 01/28/24 08/20/24 release bisacodyl 5 mg tablet,delayed 5 mg PO DAILY PRN constipation 01/28/24 08/20/24 release diphenhydramine HCl 25 mg tablet 25 mg PO BEDTIME PRN itch 01/28/24 08/20/24 (Lou-Dryl) ferrous sulfate 325 mg (65 mg 325 mg PO DAILY 01/28/24 08/20/24 iron) tablet (FeroSul) melatonin 10 mg tablet,extended 10 mg PO BEDTIME PRN Insomnia 01/28/24 08/20/24 release multivitamin 1 tab PO QAM 01/28/24 08/20/24 rosuvastatin 20 mg tablet 20 mg PO BEDTIME 01/28/24 08/20/24 trazodone 50 mg tablet 50 mg PO BEDTIME 01/28/24 08/20/24 amlodipine 10 mg tablet 10 mg PO DAILY 02/09/24 08/20/24 acetaminophen 500 mg tablet 500 mg PO Q8H PRN pain 08/09/24 08/20/24 ipratropium bromide 21 mcg (0.03 2 spray intranasal BID 08/09/24 08/20/24 %) nasal spray zolpidem 5 mg tablet 5 mg PO BEDTIME PRN Insomnia 08/09/24 08/20/24 cholecalciferol (vitamin D3) 25 25 mcg PO DAILY 08/20/24 08/20/24 mcg (1,000 unit) tablet Previous Rx's ?Medication ?Instructions ?Recorded metoprolol succinate 50 mg 50 mg PO DAILY #90 tabs 09/28/20 tablet,extended release 24 hr fluticasone propionate 50 2 spray intranasal DAILY #16 grams 09/16/23 mcg/actuation nasal spray,suspension (Flonase Allergy Relief) ondansetron 4 mg disintegrating 4 mg PO Q6H PRN nausea and 04/28/24 tablet vomiting #10 tabs hydroxyzine HCl 25 mg tablet 25 mg PO TID PRN anxiety #6 tabs 08/07/24 clonazepam 0.5 mg tablet 0.5 mg PO TID #180 tabs 08/10/24 gabapentin 100 mg capsule 100 mg PO TID #180 caps 08/10/24 valsartan 160 mg tablet 160 mg PO DAILY #90 tabs 08/20/24 hydroxyzine HCl 25 mg tablet 25 mg PO TID PRN anxiety #20 tabs 09/09/24 Allergies Allergy/AdvReac Type Severity Reaction Status Date / Time penicillin G [Penicillin G] Allergy Severe ITCHY/RASH Verified 09/19/24 06:56 Sulfa (Sulfonamide Allergy Severe ITCHY,RASH, Verified 09/19/24 06:56 Antibiotics) rash [Sulfa (Sulfonamides)] trimethoprim [From Bactrim] Allergy Severe HIVES Verified 09/19/24 06:56 Review of Systems Review of Systems: All other systems are reviewed and are negative Constitutional: Reports as per HPI and Reports no additional constitutional complaints Eyes: Reports as per HPI and Reports no additional eye complaints Reports system reviewed and no additional complaints, except as documented Cardiovascular: Reports as per HPI and Reports no additional cardiovascular complaints Respiratory: Reports as per HPI and Reports no additional respiratory complaints Gastrointestinal: Reports as per HPI and Reports no additional gastrointestinal complaints Genitourinary: Reports no additional female genitourinary complaints Musculoskeletal: Reports no additional musculoskeletal complaints Skin/Breast: Reports system reviewed and no additional complaints, except as docu Psychiatric: Reports no additional psychiatric complaints Endocrine: Reports no additional endocrine complaints Hematologic/Lymphatic: Reports no additional hematologic/lymphatic complaints Allergic/Immunologic: Reports no additional allergic/immunologic complaints Reports system reviewed and no additional complaints, except as documented and Reports Abnormal speech present FORMERLY [facility], [facility] Past Medical History 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) Unable to assess alcohol history related to: Unknown Alcohol intake: never Patient Tobacco Use Status: Never used Tobacco Smoked in Last 30 Days: No Use of substances other than those prescribed or required for medical reasons: No Advance Directives: Yes Advance Directives on File: Yes Advance Directives Date on File: 01/28/24 service: No Physical Exam Vital Signs: Vital Signs: Last Vital Signs Temp 98.0 F 09/19/24 06:54 Pulse 85 09/19/24 06:54 Resp 18 09/19/24 06:54 BP 145/62 H 09/19/24 06:54 Pulse Ox 96 09/19/24 06:54 O2 Del Method Room Air 09/19/24 06:54 BMI result Body Mass Index 31.1 Vital signs have been reviewed and appear to be correct. Blood pressure elevated. Heart rate normal. Respiratory rate normal. Temperature normal. Oxygen saturation normal. Appearance: Alert. Oriented X3. No acute distress. Head: Normal external exam. Normocephalic. Atraumatic. No Gomes signs noted. No raccoon eyes noted Eyes: PERRLA. EOMI. Conjunctiva and sclera normal. Eyelids normal. ENT: TM's Normal. Pharynx normal. Uvula midline. Moist mucous membranes. No trismus noted. No drooling noted. No muffled voice noted. Neck: Normal inspection. Neck supple. FROM. No adenopathy. Thyroid Normal. No meningeal signs. No neck mass noted. CVS: Normal heart rate and rhythm. Heart sound normal. No murmurs noted. Pulses normal throughout. Respiratory: No respiratory distress. Painless inspiration. Breath sounds normal. No wheezes/rales/rhonchi noted. Chest nontender. No accessory muscle usage noted or decreased air movement noted. Abdomen: Soft and nontender. Bowel sounds normal in all 4 quadrants. No distention noted. No organomegaly noted. No visible injury noted. Back: No CVA tenderness. Full range of motion noted. Skin: Skin warm and dry. Normal skin color. Normal skin turgor. No rashes/lesions/lacerations noted. Extremities: No lower extremity edema. Extremities exhibit normal range of motion. Extremities nontender. Neuro: Oriented X 3. Cranial nerve exam: II-XII are grossly intact No motor deficit. No sensory deficit. Reflexes normal. Course Reevaluation(s) Reevaluation #1: s/p fall and head injury not on anticoagulation, neuro exam is intact, GCS of 15,CT head and cervical spine are unremarkable. Will discharge with reassurance. Time: 09:15 Medications Administered Discontinued Medications Generic Name Dose Route Start Last Admin Trade Name Freq PRN Reason Stop Dose Admin Acetaminophen 650 mg 09/19/24 07:41 09/19/24 07:47 Acetaminophen 325 Mg Tablet PO 09/19/24 07:42 650 mg ONCE ONE Administration Medical Decision Making Differential Diagnosis Differential Diagnoses: The differential diagnosis associated with the presentation includes ( Head injury, cervical spine injury, intracranial bleed, anxiety , chest injury, extremities injury, abdominal injury.) Admission/Observation Consideration of admission/observation: Escalation of care including admission/o bservation considered Independent Interpretation I performed an independent interpretation of an: CT Scan ( Head/ spine: No acute intracranial pathology, negative cervical spine for fracture or subluxation) Radiology Impression Discussion of test interpretation with radiology: I have reviewed the ra diologist's reading. Discharge Plan Discharge Clinical Impression: Fall, Closed head injury Patient Disposition: Home, Self-Care Instructions: Head Injury (ED) Prescriptions: No Action metoprolol succinate 50 mg tablet extended release 24 hr 50 mg PO DAILY Qty: 90 2RF mirtazapine 45 mg Tablet 45 mg PO BEDTIME omeprazole 20 mg Tablet,Delayed Release (Dr/Ec) 20 mg PO DAILY@0630 fluticasone propionate [Flonase Allergy Relief] 50 mcg/actuation spray,suspension 2 spray intranasal DAILY Qty: 16 0RF Rx Instructions: administer into each nostril hydroxyzine HCl 25 mg tablet 25 mg PO TID PRN (Reason: anxiety) Qty: 6 0RF hydroxyzine HCl 25 mg tablet 25 mg PO TID PRN (Reason: anxiety) Qty: 20 0RF trazodone 50 mg tablet 50 mg PO BEDTIME ferrous sulfate [FeroSul] 325 mg (65 mg iron) tablet 325 mg PO DAILY diphenhydramine HCl [Lou-Dryl] 25 mg tablet 25 mg PO BEDTIME PRN (Reason: itch) bisacodyl 5 mg tablet,delayed release (DR/EC) 5 mg PO DAILY PRN (Reason: constipation) rosuvastatin 20 mg tablet 20 mg PO BEDTIME aspirin 81 mg tablet,delayed release (DR/EC) 81 mg PO QAM multivitamin Tablet 1 tab PO QAM melatonin 10 mg tablet extended release 10 mg PO BEDTIME PRN (Reason: Insomnia) cholecalciferol (vitamin D3) 25 mcg (1,000 unit) tablet 25 mcg PO DAILY ondansetron 4 mg tablet,disintegrating 4 mg PO Q6H PRN (Reason: nausea and vomiting) Qty: 10 0RF acetaminophen 500 mg tablet 500 mg PO Q8H PRN (Reason: pain) zolpidem 5 mg tablet 5 mg PO BEDTIME PRN (Reason: Insomnia) ipratropium bromide 21 mcg (0.03 %) spray,non-aerosol 2 spray intranasal BID clonazepam 0.5 mg Tablet 0.5 mg PO TID Qty: 180 0RF gabapentin 100 mg Capsule 100 mg PO TID Qty: 180 0RF valsartan 160 mg tablet 160 mg PO DAILY Qty: 90 1RF amlodipine 10 mg tablet 10 mg PO DAILY Referrals: Name,MD Nitin [Primary Care Provider] - Print Language: Belarusian
[2024-09-19 09:27] VITALS: BP 145/62; PULSE 85; RESP 18; TEMP 36.7; O2SAT 96
== END 2024-09-19 09:28 | disposition home or self-care (01) ==
PROVIDERS: Emergency Provider Emergency Medicine; PCP Internal Medicine Geriatric Medicine
DX: S09.90XA Unspecified injury of head, initial encounter (principal); R51.9 Headache, unspecified; M54.2 Cervicalgia; W01.190A Fall on same level from slipping, tripping and stumbling with subsequent striking against furniture, initial encounter; Y93.89 Activity, other specified; Y92.092 Bedroom in other non-institutional residence as the place of occurrence of the external cause; Y99.8 Other external cause status
CPT/HCPCS: 70450; 72125; 99284

== ENCOUNTER 2024-09-20 00:40 | Emergency (ER) | payer OTHER, SELFPAY ==
--- NOTE | ~2024-09-20 | XR_ITS ---
EXAMINATION: XR CHEST CLINICAL INFORMATION: Fever. COMPARISON: August 25, 2022 TECHNIQUE: Frontal view of the chest was obtained. FINDINGS: The cardiomediastinal silhouette is stable. There is no focal lung consolidation or pleural effusions. The bony structures and the soft tissues are unremarkable. XR/XR chest 1V IMPRESSION: No acute cardiopulmonary process. Electronically signed by: Steve Pollock MD 09/20/2024 02:51 AM [facility]
[2024-09-20 00:57] VITALS: BP 142/80; BP 166/70; PULSE 106; PULSE 91; RESP 20; TEMP 37.7; O2SAT 97; O2SAT 98; BMI 31.7
--- NOTE | 2024-09-20 01:15 | ED_ITS ---
HPI - General Adult General Chief complaint: Fever Stated complaint: Fever/vomiting Time Seen by Provider: 09/20/24 00:46 Source: patient and EMS Mode of arrival: EMS Limitations: no limitations History of Present Illness ED Provider: Dr. Marta Briscoe HPI narrative: Patient comes to the emergency room complaining of subjective fever, feeling sore throat, sneezing, coughing. Patient states that she is also feeling very anxious. Patient denies chest pain or shortness of breath. Related Data Home Medications ?Medication ?Instructions ?Recorded ?Confirmed mirtazapine 45 mg tablet 45 mg PO BEDTIME 08/09/20 08/20/24 omeprazole 20 mg tablet,delayed 20 mg PO DAILY@0630 08/09/20 08/20/24 release aspirin 81 mg tablet,delayed 81 mg PO QAM 01/28/24 08/20/24 release bisacodyl 5 mg tablet,delayed 5 mg PO DAILY PRN constipation 01/28/24 08/20/24 release diphenhydramine HCl 25 mg tablet 25 mg PO BEDTIME PRN itch 01/28/24 08/20/24 (Lou-Dryl) ferrous sulfate 325 mg (65 mg 325 mg PO DAILY 01/28/24 08/20/24 iron) tablet (FeroSul) melatonin 10 mg tablet,extended 10 mg PO BEDTIME PRN Insomnia 01/28/24 08/20/24 release multivitamin 1 tab PO QAM 01/28/24 08/20/24 rosuvastatin 20 mg tablet 20 mg PO BEDTIME 01/28/24 08/20/24 trazodone 50 mg tablet 50 mg PO BEDTIME 01/28/24 08/20/24 amlodipine 10 mg tablet 10 mg PO DAILY 02/09/24 08/20/24 acetaminophen 500 mg tablet 500 mg PO Q8H PRN pain 08/09/24 08/20/24 ipratropium bromide 21 mcg (0.03 2 spray intranasal BID 08/09/24 08/20/24 %) nasal spray zolpidem 5 mg tablet 5 mg PO BEDTIME PRN Insomnia 08/09/24 08/20/24 cholecalciferol (vitamin D3) 25 25 mcg PO DAILY 08/20/24 08/20/24 mcg (1,000 unit) tablet Previous Rx's ?Medication ?Instructions ?Recorded metoprolol succinate 50 mg 50 mg PO DAILY #90 tabs 11/19/20 tablet,extended release 24 hr fluticasone propionate 50 2 spray intranasal DAILY #16 grams 09/16/23 mcg/actuation nasal spray,suspension (Flonase Allergy Relief) ondansetron 4 mg disintegrating 4 mg PO Q6H PRN nausea and 04/28/24 tablet vomiting #10 tabs hydroxyzine HCl 25 mg tablet 25 mg PO TID PRN anxiety #6 tabs 08/07/24 clonazepam 0.5 mg tablet 0.5 mg PO TID #180 tabs 08/10/24 gabapentin 100 mg capsule 100 mg PO TID #180 caps 08/10/24 valsartan 160 mg tablet 160 mg PO DAILY #90 tabs 08/20/24 hydroxyzine HCl 25 mg tablet 25 mg PO TID PRN anxiety #20 tabs 09/09/24 Allergies Allergy/AdvReac Type Severity Reaction Status Date / Time penicillin G [Penicillin G] Allergy Severe ITCHY/RASH Verified 09/20/24 01:04 Sulfa (Sulfonamide Allergy Severe ITCHY,RASH, Verified 09/20/24 01:04 Antibiotics) rash [Sulfa (Sulfonamides)] trimethoprim [From Bactrim] Allergy Severe HIVES Verified 09/20/24 01:04 Review of Systems 2 Review of Systems: Constitutional : No Weight loss, complaining of subjective fever, No Night Sweats, complaining of generalized malaise ENT/Mouth : No Hearing loss, No Ear Pain, complaining of nasal congestion, sore throat, rhinorrhea Eyes: No Eye Pain, No Swelling, No Redness, No Foreign Body, No Discharge, No Vision Changes Cardiovascular : No Chest Pain, No SOB, No Dyspnea on Exertion, No Orthopnea, No Edema, No Palpitations Respiratory : Complaining of dry Cough, No Sputum, No Wheezing, No Smoke Exposure, No Dyspnea Gastrointestinal : No Nausea, No Vomiting, No Diarrhea, No Constipation, No abdominal Pain, No Hematochezia, No Melena Genitourinary : no irregular bleeding, No Dysuria, No Urinary Frequency, No Hematuria, No Urinary Incontinence, No Urgency, No Flank Pain, No Urinary Flow Changes, No Hesitancy Musculoskeletal : No joint pain, No Myalgias, No Joint Swelling Skin : No Skin Lesions, No rash Neuro : No Weakness, No Numbness, No Paresthesias, No Loss of Consciousness, No Dizziness, No Headache Psych : Complaining of anxiety, No Depression, No SI/HI/AH/VH, No Social Issues, Heme/Lymph: No Bruising, No Bleeding,No Lymphadenopathy Endocrine : No Polyuria, No Polydipsia, No Temperature Intolerance [facility] Past Medical History 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 Oriented X3. No acute distress. Eyes: Pupils equal, round and reactive to light. ENT: Pharynx mildly erythematous, no exudates, no vesicles Neck: Normal inspection. Neck supple. No lymph nodes noted. No crepitus CVS: Normal heart rate and rhythm. Pulses normal. Normal S1 and S2 Respiratory: No respiratory distress. Breath sounds normal. No Wheezing. No rales Abdomen: Soft and nontender. No rigidity. No distention. Skin: Skin warm and dry. Flushed skin color. Normal skin turgor. Extremities: No lower extremity edema. No Lacerations. No Rash Neuro: Oriented X 3. No motor deficit. No sensory deficit. Moving all extremities. No slurred speech. CN 2 through 12 grossly intact Psych: calm, cooperative, normal affect Course Course Course Narrative: Patient receiving viscous lidocaine, hydroxyzine in under the tongue Zofran. -chest x-ray and labs pending Medications Administered Discontinued Medications Generic Name Dose Route Start Last Admin Trade Name Beau PRN Reason Stop Dose Admin Hydroxyzine HCl 50 mg 09/20/24 01:14 09/20/24 01:34 Hydroxyzine Hcl 50 Mg Tablet PO 09/20/24 01:15 50 mg ONCE ONE Administration Lidocaine HCl 15 ml 09/20/24 01:14 09/20/24 01:34 Lidocaine Hcl Viscous 2 % 15 Ml Solution MUCOUS MEM 09/20/24 01:15 15 ml ONCE ONE Administration Ondansetron HCl 4 mg 09/20/24 01:16 09/20/24 01:32 Ondansetron Odt 4 Mg Tab.Rapdis TRANSLINGU 09/20/24 01:17 4 mg ONCE ONE Administration Medical Decision Making Medical Decision Making MDM Narrative: My interpretation of labs: Patient's hematology at baseline, chemistry shows sodium of 130 which is chronic for the patient and usually her baseline. Patient was discharged previously from the inpatient service with a sodium of 128. Patient is asymptomatic. Serology is negative for COVID influenza and strep -my interpretation of chest x-ray, no obvious abnormality. No infiltrates -patient's blood pressure stable, 166/70, no fever, oxygen saturation 97% on room air -patient likely has a viral syndrome and anxiety. Differential Diagnosis Differential Diagnoses: The differential diagnosis associated with the presentation includes (Viral syndrome, pneumonia, anxiety) Lab Data [facility] Lab Attestation statement: I reviewed the patient's lab results. 09/20/24 01:36 09/20/24 01:36 Labs: Lab Results 09/20/24 Range/Units 01:36 WBC 7.4 (4.8-10.8) X10*3/uL RBC 4.00 L (4.20-5.50) X10*6/uL Hgb 11.6 L (12.0-16.0) g/dl Hct 33.8 L (37.0-47.0) % MCV 84.5 (80.0-98.0) fL MCH 29.0 (27.0-33.0) pg MCHC 34.3 (31.0-35.0) g/dl RDW 13.3 (11.0-16.0) % Plt Count 302 (160-400) X10*3/uL MPV 8.3 L (9.4-12.3) fL Immature Gran % (Auto) 0.5 H (0.0-0.4) % Neut % (Auto) 74.2 H (45-73) % Lymph % (Auto) 17.6 L (20-40) % [place] % (Auto) 6.8 (2-11) % Eos % (Auto) 0.4 (0-4) % Baso % (Auto) 0.5 (0-2) % Lymph # (Auto) 1.3 (1.2-4.9) X10*3/uL [place] # (Auto) 0.5 (0.1-1.2) X10*3/uL Eos # (Auto) 0.0 (0.0-0.4) X10*3/uL Baso # (Auto) 0.0 (0.0-0.2) X10*3/uL Abs Immat Gran (auto) 0.04 H (0.00-0.03) X10*3/uL Absolute Neuts (auto) 5.5 (2.0-8.3) x10*3/uL Absolute Nucleated RBC 0.000 (0.0-0.012) X10*3/uL Nucleated RBC % (auto) 0.0 (0.0-0.2) /100WBC Sodium 130 L (135-145) mmol/L Potassium 4.8 (3.3-5.1) mmol/L Chloride 96 (96-108) mmol/L Carbon Dioxide 21 L (22-29) mmol/L Anion Gap 18 (12-20) BUN 25 H (9-16) mg/dL Creatinine 1.15 (0.5-1.4) mg/dL Estim Creat Clear Calc 40.8 Estimated GFR 45 Random Glucose 124 H (60-115) mg/dL Calcium 9.9 D (8.4-10.2) mg/dL Total Bilirubin 0.3 (0.0-1.0) mg/dL Direct Bilirubin 0.1 (0.0-0.5) mg/dL AST 52 H (5-31) U/L ALT 22 (0-31) U/L Alkaline Phosphatase 73 (39-117) U/L Total Protein 8.0 (6.5-8.0) g/dL Albumin 4.2 (3.5-5.0) g/dL COVID-19 (WALI) Negative (Negative) COVID-19 Clin Com See Note Influenza Type A (MYAH) Negative (Negative) Influenza Type B (MYAH) Negative (Negative) Influenza A & B Note See Note S. pyogenes GrpA MYAH Negative (Negative) Independent Interpretation I performed an independent interpretation of an: Plain X-Ray Discharge Plan Discharge Clinical Impression: Acute viral syndrome, Anxiety Patient Disposition: Home, Self-Care Instructions: Viral Syndrome (ED), Anxiety (ED) Additional Instructions: Please follow-up with your primary care physician tomorrow. If you have any worsening or new symptoms, please return to the emergency room or call 911 Prescriptions: No Action metoprolol succinate 50 mg tablet extended release 24 hr 50 mg PO DAILY Qty: 90 2RF mirtazapine 45 mg Tablet 45 mg PO BEDTIME omeprazole 20 mg Tablet,Delayed Release (Dr/Ec) 20 mg PO DAILY@0630 fluticasone propionate [Flonase Allergy Relief] 50 mcg/actuation spray,suspension 2 spray intranasal DAILY Qty: 16 0RF Rx Instructions: administer into each nostril hydroxyzine HCl 25 mg tablet 25 mg PO TID PRN (Reason: anxiety) Qty: 6 0RF hydroxyzine HCl 25 mg tablet 25 mg PO TID PRN (Reason: anxiety) Qty: 20 0RF trazodone 50 mg tablet 50 mg PO BEDTIME ferrous sulfate [FeroSul] 325 mg (65 mg iron) tablet 325 mg PO DAILY diphenhydramine HCl [Lou-Dryl] 25 mg tablet 25 mg PO BEDTIME PRN (Reason: itch) bisacodyl 5 mg tablet,delayed release (DR/EC) 5 mg PO DAILY PRN (Reason: constipation) rosuvastatin 20 mg tablet 20 mg PO BEDTIME aspirin 81 mg tablet,delayed release (DR/EC) 81 mg PO QAM multivitamin Tablet 1 tab PO QAM melatonin 10 mg tablet extended release 10 mg PO BEDTIME PRN (Reason: Insomnia) cholecalciferol (vitamin D3) 25 mcg (1,000 unit) tablet 25 mcg PO DAILY ondansetron 4 mg tablet,disintegrating 4 mg PO Q6H PRN (Reason: nausea and vomiting) Qty: 10 0RF acetaminophen 500 mg tablet 500 mg PO Q8H PRN (Reason: pain) zolpidem 5 mg tablet 5 mg PO BEDTIME PRN (Reason: Insomnia) ipratropium bromide 21 mcg (0.03 %) spray,non-aerosol 2 spray intranasal BID clonazepam 0.5 mg Tablet 0.5 mg PO TID Qty: 180 0RF gabapentin 100 mg Capsule 100 mg PO TID Qty: 180 0RF valsartan 160 mg tablet 160 mg PO DAILY Qty: 90 1RF amlodipine 10 mg tablet 10 mg PO DAILY Print Language: Micronesian
[2024-09-20] MEDS: Ondansetron ODT 4 MG TAB.RAPDIS TRANSLINGU (01:32)
[2024-09-20] MEDS: Lidocaine HCl Viscous 2 % 15 ML SOLUTION MUCOUS MEM (01:34)
[2024-09-20] MEDS: hydrOXYzine HCL 50 MG TABLET PO (01:34)
[2024-09-20 01:43] LABS: MANUAL DIFF FLAG NO
[2024-09-20 01:48] LABS: Basophils Percent Auto 0.5 % (0-2); Eosinophils Percent Auto 0.4 % (0-4); Hematocrit 33.8 % (37.0-47.0); Hemoglobin 11.6 g/dl (12.0-16.0); Imm Gran Abs Auto 0.04 X10*3/uL (0.00-0.03); Imm Gran Pct Auto 0.5 % (0.0-0.4); Lymphocytes Absolute Auto 1.3 X10*3/uL (1.2-4.9); Lymphocytes Percent Auto 17.6 % (20-40); Mean Corpuscular HGB Conc 34.3 g/dl (31.0-35.0); Mean Corpuscular Volume 84.5 fL (80.0-98.0); Mean Platelet Volume 8.3 fL (9.4-12.3); Monocytes Absolute Auto 0.5 X10*3/uL (0.1-1.2); Monocytes Percent Auto 6.8 % (2-11); Neutrophils Absolute Auto 5.5 x10*3/uL (2.0-8.3); Neutrophils Percent Auto 74.2 % (45-73); Platelet Count 302 X10*3/uL (160-400); Red Cell Distribution Width 13.3 % (11.0-16.0); White Blood Count 7.4 X10*3/uL (4.8-10.8)
[2024-09-20 02:00] LABS: IDNOW Serial# 08D9AD1C; IDNOW Serial# 152EDE1D; Strep A Nucleic Acid Negative (Negative)
[2024-09-20 02:01] LABS: Alanine Aminotransferase 22 U/L (0-31); Albumin Level 4.2 g/dL (3.5-5.0); Alkaline Phosphatase 73 U/L (39-117); Anion Gap 18 (12-20); Aspartate Amino Transferase 52 U/L (5-31); Bilirubin Direct 0.1 mg/dL (0.0-0.5); Bilirubin Total 0.3 mg/dL (0.0-1.0); Blood Urea Nitrogen 25 mg/dL (9-16); COVID-19 Test Negative (Negative); Calcium 9.9 mg/dL (8.4-10.2); Carbon Dioxide 21 mmol/L (22-29); Chloride 96 mmol/L (96-108); Creatinine Clr Calc Pharmacy 40.8; Estimated Glomerular Filt Rate 45; Glucose Random 124 mg/dL (60-115); Potassium 4.8 mmol/L (3.3-5.1); Sodium 130 mmol/L (135-145)
[2024-09-20 02:04] LABS: IDNOW Serial# 9DB6401D; Influenza A Negative (Negative); Influenza B2 Negative (Negative)
[2024-09-20] MEDS: Ibuprofen 600 MG TABLET PO (03:01)
[2024-09-20 03:43] VITALS: BP 146/84; PULSE 87; RESP 18; TEMP 37.1; O2SAT 97
== END 2024-09-20 03:15 | disposition home or self-care (01) ==
PROVIDERS: Emergency Provider Emergency Medicine
DX: B34.9 Viral infection, unspecified (principal); R50.9 Fever, unspecified; F41.9 Anxiety disorder, unspecified; R11.2 Nausea with vomiting, unspecified; Z79.899 Other long term (current) drug therapy
CPT/HCPCS: 71045; 80048; 80076; 85025; 87502; 87635; 87651; 99283; 99284

== ENCOUNTER 2024-09-20 08:14 | Emergency (ER) | payer OTHER, SELFPAY ==
[2024-09-20 08:20] VITALS: BP 168/75; PULSE 89; O2SAT 98
[2024-09-20 08:24] VITALS: BP 156/80; PULSE 80; RESP 16; TEMP 37.6; O2SAT 96; BMI 30.9
[2024-09-20 08:29] VITALS: BP 156/80; PULSE 80; RESP 16; TEMP 37.6; O2SAT 96
--- NOTE | 2024-09-20 08:32 | PC.NURSE ---
Pt. refusing to change into hospital attire
--- NOTE | 2024-09-20 08:42 | ED_ITS ---
HPI - General Adult General Chief complaint: General Medical Stated complaint: SOB, 95% on RA , High BP, Per EMS Time Seen by Provider: 09/20/24 08:32 Source: patient and EMS Limitations: no limitations History of Present Illness HPI narrative: Noreen is a frequent utilizer of the emergency department, she presented feeling nausea congestion sore throat she was evaluated this morning by Dr. Briscoe discharged home with diagnosis amd anxiety, she states she does not feel any better. Denies any chest pain shortness of breath vomiting fever Onset (ago): day(s) (1) Radiation: non-radiation Severity: mild Relieving factors: none Treatments prior to arrival: none Related Data Home Medications ?Medication ?Instructions ?Recorded ?Confirmed mirtazapine 45 mg tablet 45 mg PO BEDTIME 08/09/20 08/20/24 omeprazole 20 mg tablet,delayed 20 mg PO DAILY@0630 08/09/20 08/20/24 release aspirin 81 mg tablet,delayed 81 mg PO QAM 01/28/24 08/20/24 release bisacodyl 5 mg tablet,delayed 5 mg PO DAILY PRN constipation 01/28/24 08/20/24 release diphenhydramine HCl 25 mg tablet 25 mg PO BEDTIME PRN itch 01/28/24 08/20/24 (Lou-Dryl) ferrous sulfate 325 mg (65 mg 325 mg PO DAILY 01/28/24 08/20/24 iron) tablet (FeroSul) melatonin 10 mg tablet,extended 10 mg PO BEDTIME PRN Insomnia 01/28/24 08/20/24 release multivitamin 1 tab PO QAM 01/28/24 08/20/24 rosuvastatin 20 mg tablet 20 mg PO BEDTIME 01/28/24 08/20/24 trazodone 50 mg tablet 50 mg PO BEDTIME 01/28/24 08/20/24 amlodipine 10 mg tablet 10 mg PO DAILY 02/09/24 08/20/24 acetaminophen 500 mg tablet 500 mg PO Q8H PRN pain 08/09/24 08/20/24 ipratropium bromide 21 mcg (0.03 2 spray intranasal BID 08/09/24 08/20/24 %) nasal spray zolpidem 5 mg tablet 5 mg PO BEDTIME PRN Insomnia 08/09/24 08/20/24 cholecalciferol (vitamin D3) 25 25 mcg PO DAILY 08/20/24 08/20/24 mcg (1,000 unit) tablet Previous Rx's ?Medication ?Instructions ?Recorded metoprolol succinate 50 mg 50 mg PO DAILY #90 tabs 09/28/20 tablet,extended release 24 hr fluticasone propionate 50 2 spray intranasal DAILY #16 grams 09/16/23 mcg/actuation nasal spray,suspension (Flonase Allergy Relief) ondansetron 4 mg disintegrating 4 mg PO Q6H PRN nausea and 04/28/24 tablet vomiting #10 tabs hydroxyzine HCl 25 mg tablet 25 mg PO TID PRN anxiety #6 tabs 08/07/24 clonazepam 0.5 mg tablet 0.5 mg PO TID #180 tabs 08/10/24 gabapentin 100 mg capsule 100 mg PO TID #180 caps 08/10/24 valsartan 160 mg tablet 160 mg PO DAILY #90 tabs 08/20/24 hydroxyzine HCl 25 mg tablet 25 mg PO TID PRN anxiety #20 tabs 09/09/24 Allergies Allergy/AdvReac Type Severity Reaction Status Date / Time penicillin G [Penicillin G] Allergy Severe ITCHY/RASH Verified 09/20/24 08:26 Sulfa (Sulfonamide Allergy Severe ITCHY,RASH, Verified 09/20/24 08:26 Antibiotics) rash [Sulfa (Sulfonamides)] trimethoprim [From Bactrim] Allergy Severe HIVES Verified 09/20/24 08:26 Review of Systems Constitutional: Constitutional: Denies fever(s) Cardiovascular: Cardiovascular: Reports no additional cardiovascular complaints Psychiatric: Psychiatric: Reports anxiety PMFSH Past Medical History Attestation statement: The following information was validated with the patient. 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) Unable to assess alcohol history related to: Unknown Alcohol intake: never Patient Tobacco Use Status: Never used Tobacco Smoked in Last 30 Days: No Use of substances other than those prescribed or required for medical reasons: No Advance Directives: Yes Advance Directives on File: Yes Advance Directives Date on File: 01/28/24 Do you have a plan to hurt others: No Plan service: No Physical Exam ED Vital Signs: Vital Signs - 24 hr 09/20/24 08:24 09/20/24 08:29 09/20/24 10:43 Temperature 99.7 F 99.7 F 99.7 F Pulse Rate 80 80 80 Respiratory Rate 16 16 16 Blood Pressure 156/80 H 156/80 H 156/80 H Pulse Oximetry 96 96 96 Oxygen Delivery Method Room Air Room Air Room Air BMI result Body Mass Index 30.9 No toxic she has stable vital signs Const General: cooperative Orientation/consciousness: patient oriented x3 Limitations: no limitations HENMT Head: Yes normal to inspection Face and sinus: Yes normal facial exam Neck Neck: Yes normal visual inspection Chest Chest palpation & inspection: normal inspection of the chest Resp Effort & Inspection: normal respiratory effort Cardio Jugular venous distension: no JVD Rate: regular rate Rhythm: regular rhythm GI Inspection: Yes normal to inspection Palpation (GI): Soft to palpation, not firm and nontender Percussion: Yes normal to percussion Skin General skin exam: no rashes or lesions noted and elasticity normal Lesions: no lesions Rashes: no rashes Neuro General: patient oriented x3 Extrem General: Yes normal to inspection and Yes full ROM Course Reevaluation(s) Reevaluation #1: Patient feeling better at this time she already was seen here early this morning she had labs this morning I do not think we need to repeat any blood tests she is hemodynamically stable, she will be discharged home she is comfortable with the plan of care Time: 10:32 Medications Administered Discontinued Medications Generic Name Dose Route Start Last Admin Trade Name Freq PRN Reason Stop Dose Admin Acetaminophen 975 mg 09/20/24 08:46 09/20/24 09:18 Acetaminophen 325 Mg Tablet PO 09/20/24 08:47 975 mg ONCE ONE Administration Clonazepam 0.5 mg 09/20/24 08:46 09/20/24 09:18 Clonazepam 0.5 Mg Tablet PO 09/20/24 08:47 0.5 mg ONCE ONE Administration Medical Decision Making Medical Decision Making MDM Narrative: Patient presented in complaining of malaise, sore throat, anxiety will check CBC and chemistry Differential Diagnosis Differential Diagnoses: The differential diagnosis associated with the presentation includes Anxiety reaction/viral syndrome Admission/Observation Consideration of admission/observation: Escalation of care including admission/observation considered Lab Data [facility] Lab Attestation statement: I reviewed the patient's lab results. reviewed labs done earlier Discharge Plan Discharge Clinical Impression: Generalized anxiety disorder with panic attacks Patient Disposition: Home, Self-Care Instructions: Anxiety (ED) Additional Instructions: Follow-up with your primary care physician return if your will Prescriptions: No Action metoprolol succinate 50 mg tablet extended release 24 hr 50 mg PO DAILY Qty: 90 2RF mirtazapine 45 mg Tablet 45 mg PO BEDTIME omeprazole 20 mg Tablet,Delayed Release (Dr/Ec) 20 mg PO DAILY@0630 fluticasone propionate [Flonase Allergy Relief] 50 mcg/actuation spray,suspension 2 spray intranasal DAILY Qty: 16 0RF Rx Instructions: administer into each nostril hydroxyzine HCl 25 mg tablet 25 mg PO TID PRN (Reason: anxiety) Qty: 6 0RF hydroxyzine HCl 25 mg tablet 25 mg PO TID PRN (Reason: anxiety) Qty: 20 0RF trazodone 50 mg tablet 50 mg PO BEDTIME ferrous sulfate [FeroSul] 325 mg (65 mg iron) tablet 325 mg PO DAILY diphenhydramine HCl [Lou-Dryl] 25 mg tablet 25 mg PO BEDTIME PRN (Reason: itch) bisacodyl 5 mg tablet,delayed release (DR/EC) 5 mg PO DAILY PRN (Reason: constipation) rosuvastatin 20 mg tablet 20 mg PO BEDTIME aspirin 81 mg tablet,delayed release (DR/EC) 81 mg PO QAM multivitamin Tablet 1 tab PO QAM melatonin 10 mg tablet extended release 10 mg PO BEDTIME PRN (Reason: Insomnia) cholecalciferol (vitamin D3) 25 mcg (1,000 unit) tablet 25 mcg PO DAILY ondansetron 4 mg tablet,disintegrating 4 mg PO Q6H PRN (Reason: nausea and vomiting) Qty: 10 0RF acetaminophen 500 mg tablet 500 mg PO Q8H PRN (Reason: pain) zolpidem 5 mg tablet 5 mg PO BEDTIME PRN (Reason: Insomnia) ipratropium bromide 21 mcg (0.03 %) spray,non-aerosol 2 spray intranasal BID clonazepam 0.5 mg Tablet 0.5 mg PO TID Qty: 180 0RF gabapentin 100 mg Capsule 100 mg PO TID Qty: 180 0RF valsartan 160 mg tablet 160 mg PO DAILY Qty: 90 1RF amlodipine 10 mg tablet 10 mg PO DAILY Referrals: Name,MD Nitin [Primary Care Provider] - 1 day Interventions: ED Discharge Assessment Last Done: 09/20/24 10:43 Discharge Date/Time: 09/20/24 10:44 Print Language: Citizen [place]
--- NOTE | 2024-09-20 08:48 | PC.NURSE ---
Per Ghias, please continue to give Lispro 8U per protocol as well as scheduled 34U Glargine
[2024-09-20] MEDS: Acetaminophen 325 MG TABLET 975 MG PO (09:18)
[2024-09-20] MEDS: clonazePAM 0.5 MG TABLET PO (09:18)
[2024-09-20 10:43] VITALS: BP 156/80; PULSE 80; RESP 16; TEMP 37.6; O2SAT 96
== END 2024-09-20 10:44 | disposition home or self-care (01) ==
PROVIDERS: Emergency Provider Emergency Medicine; PCP Internal Medicine Geriatric Medicine
DX: F41.1 Generalized anxiety disorder (principal); F43.0 Acute stress reaction; F41.0 Panic disorder [episodic paroxysmal anxiety]; R06.02 Shortness of breath; R11.0 Nausea; J02.9 Acute pharyngitis, unspecified; Z11.52 Encounter for screening for COVID-19; Z79.899 Other long term (current) drug therapy
CPT/HCPCS: 71045; 80048; 80076; 85025; 87502; 87635; 87651; 99283; 99284

== ENCOUNTER 2024-09-21 20:17 | Emergency (ER) | payer OTHER, SELFPAY ==
[2024-09-21 20:38] VITALS: BP 136/64; PULSE 82; O2SAT 98
== END 2024-09-21 23:10 | disposition left against medical advice (07) ==
PROVIDERS: Emergency Provider Emergency Medicine
DX: F41.9 Anxiety disorder, unspecified (principal); Z53.21 Procedure and treatment not carried out due to patient leaving prior to being seen by health care provider

== ENCOUNTER 2024-09-26 00:39 | Emergency (ER) | payer OTHER, SELFPAY ==
[2024-09-26 01:10] VITALS: BP 135/73; BP 138/78; PULSE 89; PULSE 92; RESP 18; TEMP 36.7; O2SAT 100; O2SAT 95; BMI 28.5
[2024-09-26 01:23] LABS: Glucose, Whole Blood 145 mg/dL (60-115)
[2024-09-26 02:08] VITALS: BP 114/64; PULSE 99; RESP 16; TEMP 36.8; O2SAT 97
[2024-09-26 02:34] LABS: Appearance Urine Clear; Color Urine Yellow; Glucose Urine UA Negative (Negative); Leukocyte Esterase Urine Moderate (2+) (Negative); Nitrite Urine Negative (Negative); PH 5.5 (5.0-9.0); Specific Gravity - Urine 1.015 (1.005-1.025); UMIC TRIGGER UACC YES; Urine Blood Negative (Negative); Urine Ketones Negative (Negative); Urine Protein Negative (Neg-Trace)
[2024-09-26] MEDS: Ondansetron ODT 4 MG TAB.RAPDIS TRANSLINGU (02:52)
[2024-09-26] MEDS: hydrOXYzine HCL 50 MG TABLET PO (02:52)
[2024-09-26 03:03] LABS: Bacteria Urine None Seen (None Seen); Hyaline Casts Urine 0-2 /LPF (0-2); RBC Urine 0-2 /HPF (0-2); UACC Culture Trigger YES; WBC Urine 21-50 /HPF (0-5)
--- NOTE | 2024-09-26 03:31 | ED.GENADULT ---
HPI - General Adult General Chief complaint: General Medical Stated complaint: weakness, nausea Time Seen by Provider: 09/26/24 02:16 Source: patient and EMS Mode of arrival: EMS Limitations: no limitations History of Present Illness ED Provider: Dr. Marta Briscoe HPI narrative: Patient comes to the emergency room complaining of anxiety. Initially patient also complaining of nausea. Patient states that she ran out of her benzodiazepines and would like to have clonazepam until Friday when she can refill her anxiety medications. Also, patient states that she has been urinating frequently, denies hematuria or dysuria. Related Data Home Medications ?Medication ?Instructions ?Recorded ?Confirmed mirtazapine 45 mg tablet 45 mg PO BEDTIME 08/09/20 08/20/24 omeprazole 20 mg tablet,delayed 20 mg PO DAILY@0630 08/09/20 08/20/24 release aspirin 81 mg tablet,delayed 81 mg PO QAM 01/28/24 08/20/24 release bisacodyl 5 mg tablet,delayed 5 mg PO DAILY PRN constipation 01/28/24 08/20/24 release diphenhydramine HCl 25 mg tablet 25 mg PO BEDTIME PRN itch 01/28/24 08/20/24 (Lou-Dryl) ferrous sulfate 325 mg (65 mg 325 mg PO DAILY 01/28/24 08/20/24 iron) tablet (FeroSul) melatonin 10 mg tablet,extended 10 mg PO BEDTIME PRN Insomnia 01/28/24 08/20/24 release multivitamin 1 tab PO QAM 01/28/24 08/20/24 rosuvastatin 20 mg tablet 20 mg PO BEDTIME 01/28/24 08/20/24 trazodone 50 mg tablet 50 mg PO BEDTIME 01/28/24 08/20/24 amlodipine 10 mg tablet 10 mg PO DAILY 02/09/24 08/20/24 acetaminophen 500 mg tablet 500 mg PO Q8H PRN pain 08/09/24 08/20/24 ipratropium bromide 21 mcg (0.03 2 spray intranasal BID 08/09/24 08/20/24 %) nasal spray zolpidem 5 mg tablet 5 mg PO BEDTIME PRN Insomnia 08/09/24 08/20/24 cholecalciferol (vitamin D3) 25 25 mcg PO DAILY 08/20/24 08/20/24 mcg (1,000 unit) tablet Previous Rx's ?Medication ?Instructions ?Recorded metoprolol succinate 50 mg 50 mg PO DAILY #90 tabs 09/28/20 tablet,extended release 24 hr fluticasone propionate 50 2 spray intranasal DAILY #16 grams 09/16/23 mcg/actuation nasal spray,suspension (Flonase Allergy Relief) ondansetron 4 mg disintegrating 4 mg PO Q6H PRN nausea and 04/28/24 tablet vomiting #10 tabs hydroxyzine HCl 25 mg tablet 25 mg PO TID PRN anxiety #6 tabs 08/07/24 clonazepam 0.5 mg tablet 0.5 mg PO TID #180 tabs 08/10/24 gabapentin 100 mg capsule 100 mg PO TID #180 caps 08/10/24 valsartan 160 mg tablet 160 mg PO DAILY #90 tabs 08/20/24 hydroxyzine HCl 25 mg tablet 25 mg PO TID PRN anxiety #20 tabs 09/09/24 Allergies Allergy/AdvReac Type Severity Reaction Status Date / Time penicillin G [Penicillin G] Allergy Severe ITCHY/RASH Verified 09/26/24 01:14 Sulfa (Sulfonamide Allergy Severe ITCHY,RASH, Verified 09/26/24 01:14 Antibiotics) rash [Sulfa (Sulfonamides)] trimethoprim [From Bactrim] Allergy Severe HIVES Verified 09/26/24 01:14 Review of Systems Review of Systems: Constitutional : No Weight loss, No Fever, No Chills, No Night Sweats, No Fatigue, No Malaise ENT/Mouth : No Hearing loss, No Ear Pain, No Nasal Congestion, No Sinus Pain, No Hoarseness, No sore throat, No Rhinorrhea, No Swallowing Difficulty Eyes: No Eye Pain, No Swelling, No Redness, No Foreign Body, No Discharge, No Vision Changes Cardiovascular : No Chest Pain, No SOB, No Dyspnea on Exertion, No Orthopnea, No Edema, No Palpitations Respiratory : No Cough, No Sputum, No Wheezing, No Smoke Exposure, No Dyspnea Gastrointestinal : No Nausea, No Vomiting, No Diarrhea, No Constipation, No abdominal Pain, No Hematochezia, No Melena Genitourinary : Complaining of frequent urination No Dysuria, No Urinary Frequency, No Hematuria, No Urinary Incontinence, No Urgency, No Flank Pain, No Urinary Flow Changes, No Hesitancy Musculoskeletal : No joint pain, No Myalgias, No Joint Swelling Skin : No Skin Lesions, No rash Neuro : No Weakness, No Numbness, No Paresthesias, No Loss of Consciousness, No Dizziness, No Headache Psych : Complaining of anxiety, No Depression, No SI/HI/AH/VH, No Social Issues, Heme/Lymph: No Bruising, No Bleeding,No Lymphadenopathy Endocrine : No Polyuria, No Polydipsia, No Temperature Intolerance [facility] Past Medical History 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 Oriented X3. No acute distress. Eyes: Pupils equal, round and reactive to light. ENT: Pharynx normal. Neck: Normal inspection. Neck supple. No lymph nodes noted. No crepitus CVS: Normal heart rate and rhythm. Pulses normal. Normal S1 and S2 Respiratory: No respiratory distress. Breath sounds normal. No Wheezing. No rales Abdomen: Soft and nontender. No rigidity. No distention. Skin: Skin warm and dry. Normal skin color. Normal skin turgor. Extremities: No lower extremity edema. No Lacerations. No Rash Neuro: Oriented X 3. No motor deficit. No sensory deficit. Moving all extremities. No slurred speech. CN 2 through 12 grossly intact Psych: calm, cooperative, a bit anxious Medications Administered Discontinued Medications Generic Name Dose Route Start Last Admin Trade Name Beau PRN Reason Stop Dose Admin Hydroxyzine HCl 50 mg 09/26/24 02:43 09/26/24 02:52 Hydroxyzine Hcl 50 Mg Tablet PO 09/26/24 02:44 50 mg ONCE ONE Administration Ondansetron HCl 4 mg 09/26/24 02:43 09/26/24 02:52 Ondansetron Odt 4 Mg Tab.Rapdis TRANSLINGU 09/26/24 02:44 4 mg ONCE ONE Administration Medical Decision Making Medical Decision Making MDM Narrative: Patient frequently comes to the emergency room seeking benzodiazepines. -patient was given transferring will ondansetron and p.o. hydroxyzine. -urine positive for leukocyte esterase and an elevated white blood cell count. However, patient has had multiple urinalysis done, microbiology negative for bacterial growth. Antibiotics not indicated. -patient feeling better, ready for discharge. Lab Data Labs: Lab Results 09/26/24 09/26/24 Range/Units 01:19 02:26 POC Glucose 145 H (60-115) mg/dL Urine Color Yellow Urine Appearance Clear Urine pH 5.5 (5.0-9.0) Ur Specific [place] 1.015 (1.005-1.025) Urine Protein Negative (Neg-Trace) mg/dL Urine Glucose (UA) Negative (Negative) mg/dL Urine Ketones Negative (Negative) mg/dL Urine Blood Negative (Negative) Urine Nitrite Negative (Negative) Ur Leukocyte Esterase Moderate (2+) H (Negative) Urine RBC 0-2 (0-2) /HPF Urine WBC 21-50 H (0-5) /HPF Ur Squamous Epith Cells 3-5 (0-2) /HPF Urine Bacteria None Seen (None Seen) Hyaline Casts 0-2 (0-2) /LPF Discharge Plan Discharge Clinical Impression: Anxiety, Polyuria Patient Disposition: Home, Self-Care Instructions: Anxiety (ED), Polyuria (ED) Additional Instructions: Please follow-up with your primary care physician tomorrow. If you have any worsening or new symptoms, please return to the emergency room or call 911 Prescriptions: No Action metoprolol succinate 50 mg tablet extended release 24 hr 50 mg PO DAILY Qty: 90 2RF mirtazapine 45 mg Tablet 45 mg PO BEDTIME omeprazole 20 mg Tablet,Delayed Release (Dr/Ec) 20 mg PO DAILY@0630 fluticasone propionate [Flonase Allergy Relief] 50 mcg/actuation spray,suspension 2 spray intranasal DAILY Qty: 16 0RF Rx Instructions: administer into each nostril hydroxyzine HCl 25 mg tablet 25 mg PO TID PRN (Reason: anxiety) Qty: 6 0RF hydroxyzine HCl 25 mg tablet 25 mg PO TID PRN (Reason: anxiety) Qty: 20 0RF trazodone 50 mg tablet 50 mg PO BEDTIME ferrous sulfate [FeroSul] 325 mg (65 mg iron) tablet 325 mg PO DAILY diphenhydramine HCl [Lou-Dryl] 25 mg tablet 25 mg PO BEDTIME PRN (Reason: itch) bisacodyl 5 mg tablet,delayed release (DR/EC) 5 mg PO DAILY PRN (Reason: constipation) rosuvastatin 20 mg tablet 20 mg PO BEDTIME aspirin 81 mg tablet,delayed release (DR/EC) 81 mg PO QAM multivitamin Tablet 1 tab PO QAM melatonin 10 mg tablet extended release 10 mg PO BEDTIME PRN (Reason: Insomnia) cholecalciferol (vitamin D3) 25 mcg (1,000 unit) tablet 25 mcg PO DAILY ondansetron 4 mg tablet,disintegrating 4 mg PO Q6H PRN (Reason: nausea and vomiting) Qty: 10 0RF acetaminophen 500 mg tablet 500 mg PO Q8H PRN (Reason: pain) zolpidem 5 mg tablet 5 mg PO BEDTIME PRN (Reason: Insomnia) ipratropium bromide 21 mcg (0.03 %) spray,non-aerosol 2 spray intranasal BID clonazepam 0.5 mg Tablet 0.5 mg PO TID Qty: 180 0RF gabapentin 100 mg Capsule 100 mg PO TID Qty: 180 0RF valsartan 160 mg tablet 160 mg PO DAILY Qty: 90 1RF amlodipine 10 mg tablet 10 mg PO DAILY Print Language: Hong Konger
[2024-09-26 03:47] VITALS: BP 114/64; PULSE 99; RESP 16; TEMP 36.8; O2SAT 97
== END 2024-09-26 03:48 | disposition home or self-care (01) ==
PROVIDERS: Emergency Provider Emergency Medicine; PCP Internal Medicine Geriatric Medicine
DX: F41.9 Anxiety disorder, unspecified (principal); R11.0 Nausea; R35.89 Other polyuria; Z79.899 Other long term (current) drug therapy
CPT/HCPCS: 81001; 82947; 87086; 99283

== ENCOUNTER 2024-09-26 20:31 | Emergency (ER) | payer OTHER, SELFPAY ==
[2024-09-26 20:39] VITALS: BP 146/84; PULSE 106; RESP 16; TEMP 36.6; O2SAT 96
[2024-09-26 20:45] VITALS: BP 146/84; PULSE 106; RESP 18; TEMP 36.6; BMI 28.5
--- NOTE | 2024-09-26 21:17 | ED.GENADULT ---
HPI - General Adult General Chief complaint: Dizziness Stated complaint: anxiety, HTN Time Seen by Provider: 09/26/24 20:49 History of Present Illness HPI narrative: Patient is an 79-year-old female with a history of anxiety. Presented today with having anxiety. Wanting to have Xanax. Patient stated that she is out of her medication. Her doctor would not prescribe it to her. Patient has been to the emergency department multiple times for anxiolytic medication. No fever no chills no chest pain or shortness breath no dizziness. Related Data Home Medications ?Medication ?Instructions ?Recorded ?Confirmed mirtazapine 45 mg tablet 45 mg PO BEDTIME 08/09/20 08/20/24 omeprazole 20 mg tablet,delayed 20 mg PO DAILY@0630 08/09/20 08/20/24 release aspirin 81 mg tablet,delayed 81 mg PO QAM 01/28/24 08/20/24 release bisacodyl 5 mg tablet,delayed 5 mg PO DAILY PRN constipation 01/28/24 08/20/24 release diphenhydramine HCl 25 mg tablet 25 mg PO BEDTIME PRN itch 01/28/24 08/20/24 (Lou-Dryl) ferrous sulfate 325 mg (65 mg 325 mg PO DAILY 01/28/24 08/20/24 iron) tablet (FeroSul) melatonin 10 mg tablet,extended 10 mg PO BEDTIME PRN Insomnia 01/28/24 08/20/24 release multivitamin 1 tab PO QAM 01/28/24 08/20/24 rosuvastatin 20 mg tablet 20 mg PO BEDTIME 01/28/24 08/20/24 trazodone 50 mg tablet 50 mg PO BEDTIME 01/28/24 08/20/24 amlodipine 10 mg tablet 10 mg PO DAILY 02/09/24 08/20/24 acetaminophen 500 mg tablet 500 mg PO Q8H PRN pain 08/09/24 08/20/24 ipratropium bromide 21 mcg (0.03 2 spray intranasal BID 08/09/24 08/20/24 %) nasal spray zolpidem 5 mg tablet 5 mg PO BEDTIME PRN Insomnia 08/09/24 08/20/24 cholecalciferol (vitamin D3) 25 25 mcg PO DAILY 08/20/24 08/20/24 mcg (1,000 unit) tablet Previous Rx's ?Medication ?Instructions ?Recorded metoprolol succinate 50 mg 50 mg PO DAILY #90 tabs 09/28/20 tablet,extended release 24 hr fluticasone propionate 50 2 spray intranasal DAILY #16 grams 09/16/23 mcg/actuation nasal spray,suspension (Flonase Allergy Relief) ondansetron 4 mg disintegrating 4 mg PO Q6H PRN nausea and 04/28/24 tablet vomiting #10 tabs hydroxyzine HCl 25 mg tablet 25 mg PO TID PRN anxiety #6 tabs 08/07/24 clonazepam 0.5 mg tablet 0.5 mg PO TID #180 tabs 08/10/24 gabapentin 100 mg capsule 100 mg PO TID #180 caps 08/10/24 valsartan 160 mg tablet 160 mg PO DAILY #90 tabs 08/20/24 hydroxyzine HCl 25 mg tablet 25 mg PO TID PRN anxiety #20 tabs 09/09/24 Allergies Allergy/AdvReac Type Severity Reaction Status Date / Time penicillin G [Penicillin G] Allergy Severe ITCHY/RASH Verified 09/26/24 20:46 Sulfa (Sulfonamide Allergy Severe ITCHY,RASH, Verified 09/26/24 20:46 Antibiotics) rash [Sulfa (Sulfonamides)] trimethoprim [From Bactrim] Allergy Severe HIVES Verified 09/26/24 20:46 Review of Systems Review of Systems: No chest pain or diaphoresis PMFSH Past Medical History Attestation statement: The following information was validated with the patient. 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 Oriented X3. No acute distress. Eyes: Pupils equal, round and reactive to light. ENT: Pharynx normal. Neck: Normal inspection. Neck supple. No lymph nodes noted. No crepitus CVS: Normal heart rate and rhythm. Pulses normal. Normal S1 and S2 Respiratory: No respiratory distress. Breath sounds normal. No Wheezing. No rales Abdomen: Soft and nontender. No rigidity. No distention. good BS x4 Skin: Skin warm and dry. Normal skin color. Normal skin turgor. Extremities: No lower extremity edema. Neurovascular intact to all extremities. No Lacerations. No Rash Neuro: Oriented X 3. No motor deficit. No sensory deficit. Moving all extermities. No slurred speech Medical Decision Making Medical Decision Making MDM Narrative: Patient want to her anxiety medicine including Xanax. Explained to patient the need for follow-up on an outpatient basis as she has been seen many times in the past for the same. Patient has been here 9 times in the last 2 months. Explained to patient that we can not provide her with any additional benzos. Patient promptly walked out of the emergency department. She was in no distress walking in a stable fashion. Currently in stable condition explained to patient the need for close follow-up on an outpatient basis Differential Diagnosis Differential Diagnoses: The differential diagnosis associated with the presentation includes Anxiety, lack of medication Admission/Observation Consideration of admission/observation: Escalation of care including admission/observation considered External Record Review External record reviewed: Inpatient record Discharge Plan Discharge Clinical Impression: Anxiety Patient Disposition: Home, Self-Care Instructions: Anxiety (ED) Prescriptions: No Action metoprolol succinate 50 mg tablet extended release 24 hr 50 mg PO DAILY Qty: 90 2RF mirtazapine 45 mg Tablet 45 mg PO BEDTIME omeprazole 20 mg Tablet,Delayed Release (Dr/Ec) 20 mg PO DAILY@0630 fluticasone propionate [Flonase Allergy Relief] 50 mcg/actuation spray,suspension 2 spray intranasal DAILY Qty: 16 0RF Rx Instructions: administer into each nostril hydroxyzine HCl 25 mg tablet 25 mg PO TID PRN (Reason: anxiety) Qty: 6 0RF hydroxyzine HCl 25 mg tablet 25 mg PO TID PRN (Reason: anxiety) Qty: 20 0RF trazodone 50 mg tablet 50 mg PO BEDTIME ferrous sulfate [FeroSul] 325 mg (65 mg iron) tablet 325 mg PO DAILY diphenhydramine HCl [Lou-Dryl] 25 mg tablet 25 mg PO BEDTIME PRN (Reason: itch) bisacodyl 5 mg tablet,delayed release (DR/EC) 5 mg PO DAILY PRN (Reason: constipation) rosuvastatin 20 mg tablet 20 mg PO BEDTIME aspirin 81 mg tablet,delayed release (DR/EC) 81 mg PO QAM multivitamin Tablet 1 tab PO QAM melatonin 10 mg tablet extended release 10 mg PO BEDTIME PRN (Reason: Insomnia) cholecalciferol (vitamin D3) 25 mcg (1,000 unit) tablet 25 mcg PO DAILY ondansetron 4 mg tablet,disintegrating 4 mg PO Q6H PRN (Reason: nausea and vomiting) Qty: 10 0RF acetaminophen 500 mg tablet 500 mg PO Q8H PRN (Reason: pain) zolpidem 5 mg tablet 5 mg PO BEDTIME PRN (Reason: Insomnia) ipratropium bromide 21 mcg (0.03 %) spray,non-aerosol 2 spray intranasal BID clonazepam 0.5 mg Tablet 0.5 mg PO TID Qty: 180 0RF gabapentin 100 mg Capsule 100 mg PO TID Qty: 180 0RF valsartan 160 mg tablet 160 mg PO DAILY Qty: 90 1RF amlodipine 10 mg tablet 10 mg PO DAILY Referrals: Name,MD Nitin [Primary Care Provider] - Print Language: Azeri
[2024-09-26 21:39] VITALS: BP 146/84; PULSE 106; RESP 16; TEMP 36.6; O2SAT 96
== END 2024-09-26 21:40 | disposition home or self-care (01) ==
PROVIDERS: Emergency Provider Emergency Medicine Emergency Medical Services; PCP Internal Medicine Geriatric Medicine
DX: R42 Dizziness and giddiness (principal); F41.9 Anxiety disorder, unspecified; I10 Essential (primary) hypertension; Z79.899 Other long term (current) drug therapy
CPT/HCPCS: 81001; 82947; 87086; 99283; 99284

== ENCOUNTER 2024-09-29 15:32 | Outpatient (AMB) | payer OTHER, SELFPAY ==
[2024-09-29 15:36] VITALS: BP 100/62; PULSE 91; O2SAT 96; BMI 28.0
--- NOTE | 2024-09-29 15:36 | HO.NEPHOV_ITS ---
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 Power House Engineer Name: [id number] martine Accompanied by: Friend Allergies penicillin G [Penicillin G] Allergy (Severe, Verified 09/29/24 15:39) ITCHY/RASH Sulfa (Sulfonamide Antibiotics) [Sulfa (Sulfonamides)] Allergy (Severe, Verified 09/29/24 15:39) ITCHY,RASH, rash trimethoprim [From Bactrim] Allergy (Severe, Verified 09/29/24 15:39) HIVES Medication List - Last Reconciled 09/29/24 by Santos Erazo MD acetaminophen 500 mg PO Q8H PRN amlodipine 10 mg PO DAILY aspirin 81 mg PO QAM bisacodyl 5 mg PO DAILY PRN cholecalciferol (vitamin D3) 25 mcg PO DAILY clonazepam 0.5 mg PO TID diphenhydramine HCl (Lou-Dryl) 25 mg PO BEDTIME PRN ferrous sulfate (FeroSul) 325 mg PO DAILY fluticasone propionate 50 mcg/actuation (Flonase Allergy Relief) 2 sprays intranasal DAILY gabapentin 100 mg PO TID hydroxyzine HCl 25 mg PO TID PRN hydroxyzine HCl 25 mg PO TID PRN ipratropium bromide 2 sprays intranasal BID meclizine 25 mg PO DAILY PRN melatonin ER 10 mg PO BEDTIME PRN metoprolol succinate ER 50 mg PO DAILY mirtazapine 45 mg PO BEDTIME multivitamin 1 tab PO QAM omeprazole 20 mg PO DAILY@0630 ondansetron 4 mg PO Q6H PRN rosuvastatin 20 mg PO BEDTIME trazodone 50 mg PO BEDTIME valsartan 160 mg PO DAILY zolpidem 5 mg PO BEDTIME PRN HPI Comments Details: 78-year-old female with medical history of generalized anxiety disorder, major cognitive disorder, HLD, GERD, HTN who presented to the ER for anxiety and panic attacks, was found to have a sodium of 126 and an episode of vomiting, and was seen during recent hospitalization. Serum sodium improved from 12/05 up to 131 prior to discharge. She is here for further follow-up. She was on lisinopril 20 mg a day. 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) Unable to assess alcohol history related to: Unknown Alcohol intake: never Patient Tobacco Use Status: Never used Tobacco Advance Directives Date on File: 01/28/24 service: No Physical Exam Vital Signs: Last Vital Signs Pulse 91 09/29/24 15:36 BP 100/62 09/29/24 15:36 Pulse Ox 96 09/29/24 15:36 Oxygen Delivery Method Room Air 09/29/24 15:36 BMI result Body Mass Index 28.0 Results Reviewed Nephrology Results: Hgb 11.6 g/dl (12.0-16.0) L 09/20/24 WBC 7.4 X10*3/uL (4.8-10.8) 09/20/24 Plt Count 302 X10*3/uL (160-400) 09/20/24 Sodium 130 mmol/L (135-145) L 09/20/24 Potassium 4.8 mmol/L (3.3-5.1) 09/20/24 Chloride 96 mmol/L (96-108) 09/20/24 Carbon Dioxide 21 mmol/L (22-29) L 09/20/24 BUN 25 mg/dL (9-16) H 09/20/24 Creatinine 1.15 mg/dL (0.5-1.4) 09/20/24 Calcium 9.9 mg/dL (8.4-10.2) 09/20/24 Urine Protein Negative mg/dL (Neg-Trace) 09/26/24 Assessment & Plan Assessment & Plan (1) Acute hyponatremia: Code(s): E87.1 - Hypo-osmolality and hyponatremia Category: Medical (2) CKD stage 3a, GFR 45-59 ml/min: Code(s): N18.31 - Chronic kidney disease, stage 3a Category: Medical Plan Hyponatremia due to non osmotic ADH release. Urine osmolality is elevated with high urine sodium suggestive of inappropriate ADH secretion. Goal is to maintain serum sodium more than 133 millimoles Restrict oral free water intake to 1.2 L per 24 hours. Maintain blood pressure less than 130/80 All questions were answered Orders: Orders Basic Metabolic Panel 6 Months E87.1 - Hypo-osmolality and hyponatremia Coding Level of Care Code Est Pt Level 4 (66830) Diagnoses Acute hyponatremia E87.1 CKD stage 3a, GFR 45-59 ml/min N18.31
== END 2024-09-29 15:51 | disposition home or self-care (01) ==
LOC: HO.HKAM 15:32
PROVIDERS: PCP Internal Medicine Geriatric Medicine; Visit Provider Internal Medicine Hypertension Specialist
DX: E87.1 Hypo-osmolality and hyponatremia (principal); N18.31 Chronic kidney disease, stage 3a
CPT/HCPCS: 99214

== ENCOUNTER → 2024-09-29 15:32 | Outpatient (BNVA) | payer OTHER, SELFPAY | PROVIDERS: PCP Internal Medicine Geriatric Medicine; Visit Provider Internal Medicine Hypertension Specialist | DX: E87.1 Hypo-osmolality and hyponatremia (principal); N18.31 Chronic kidney disease, stage 3a | CPT/HCPCS: 99212 ==

== ENCOUNTER 2024-10-08 23:08 | Emergency (ER) | payer OTHER, SELFPAY ==
[2024-10-08 23:26] VITALS: BP 158/80; PULSE 80; O2SAT 97
[2024-10-08 23:37] VITALS: BP 117/60; PULSE 74; RESP 18; TEMP 36.1; O2SAT 95; BMI 28.0
[2024-10-09 00:28] VITALS: BP 108/67; BP 111/59; BP 118/66; PULSE 72; PULSE 74; RESP 18; TEMP 36.7; O2SAT 98
--- NOTE | 2024-10-09 00:28 | ECG_ITS ---
Test Reason : GRES Blood Pressure : / mmHG Vent. Rate : 072 BPM Atrial Rate : 072 BPM P-R Int : 176 ms QRS Dur : 100 ms QT Int : 386 ms P-R-T Axes : 044 -24 009 degrees QTc Int : 422 ms Normal sinus rhythm with sinus arrhythmia Moderate voltage criteria for LVH, may be normal variant ( R in aVL , Maycol product ) Borderline ECG When compared with ECG of 23-AUG-2024 02:05, Vent. rate has decreased BY 54 BPM T wave inversion now evident in Inferior leads Referred By: Earl Dill Electronically Signed By:ZANDRA ENNIS
--- NOTE | 2024-10-09 00:35 | MHC.EDTECH ---
Ortho static vitals taken,EKG completed per order and signed by provider,labs and urine obtained and sent to lab
--- NOTE | 2024-10-09 00:42 | ED.FEMALEGU ---
HPI - Female Genitourinary General Chief complaint: Urogenital-Female Stated complaint: uti? 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 She also reports dizziness that she describes as room spinning Her dizziness is improving. She also reports that the itchiness started in her groin a few weeks ago. She complains of urinary incontinence. She denies any burning with urination Denies any fevers or chills She denies any abdominal pain Related Data Home Medications ?Medication ?Instructions ?Recorded ?Confirmed mirtazapine 45 mg tablet 45 mg PO BEDTIME 08/09/20 09/29/24 omeprazole 20 mg tablet,delayed 20 mg PO DAILY@0630 08/09/20 09/29/24 release aspirin 81 mg tablet,delayed 81 mg PO QAM 01/28/24 09/29/24 release bisacodyl 5 mg tablet,delayed 5 mg PO DAILY PRN constipation 01/28/24 09/29/24 release diphenhydramine HCl 25 mg tablet 25 mg PO BEDTIME PRN itch 01/28/24 09/29/24 (Lou-Dryl) ferrous sulfate 325 mg (65 mg 325 mg PO DAILY 01/28/24 09/29/24 iron) tablet (FeroSul) melatonin 10 mg tablet,extended 10 mg PO BEDTIME PRN Insomnia 01/28/24 09/29/24 release multivitamin 1 tab PO QAM 01/28/24 09/29/24 rosuvastatin 20 mg tablet 20 mg PO BEDTIME 01/28/24 09/29/24 trazodone 50 mg tablet 50 mg PO BEDTIME 01/28/24 09/29/24 amlodipine 10 mg tablet 10 mg PO DAILY 02/09/24 09/29/24 acetaminophen 500 mg tablet 500 mg PO Q8H PRN pain 08/09/24 09/29/24 ipratropium bromide 21 mcg (0.03 2 spray intranasal BID 08/09/24 09/29/24 %) nasal spray zolpidem 5 mg tablet 5 mg PO BEDTIME PRN Insomnia 08/09/24 09/29/24 cholecalciferol (vitamin D3) 25 25 mcg PO DAILY 08/20/24 09/29/24 mcg (1,000 unit) tablet meclizine 25 mg tablet 25 mg PO DAILY PRN 09/29/24 09/29/24 Previous Rx's ?Medication ?Instructions ?Recorded metoprolol succinate 50 mg 50 mg PO DAILY #90 tabs 09/28/20 tablet,extended release 24 hr fluticasone propionate 50 2 spray intranasal DAILY #16 grams 09/16/23 mcg/actuation nasal spray,suspension (Flonase Allergy Relief) ondansetron 4 mg disintegrating 4 mg PO Q6H PRN nausea and 04/28/24 tablet vomiting #10 tabs hydroxyzine HCl 25 mg tablet 25 mg PO TID PRN anxiety #6 tabs 08/07/24 clonazepam 0.5 mg tablet 0.5 mg PO TID #180 tabs 08/10/24 gabapentin 100 mg capsule 100 mg PO TID #180 caps 08/10/24 valsartan 160 mg tablet 160 mg PO DAILY #90 tabs 08/20/24 hydroxyzine HCl 25 mg tablet 25 mg PO TID PRN anxiety #20 tabs 09/09/24 miconazole nitrate 2 % vaginal 1 appful vaginal BEDTIME 7 days 10/09/24 cream (Monistat 7) #45 grams nitrofurantoin 100 mg PO Q12H 3 days #6 caps 10/09/24 monohydrate/macrocrystals 100 mg capsule (Macrobid) Allergies Allergy/AdvReac Type Severity Reaction Status Date / Time penicillin G [Penicillin G] Allergy Severe ITCHY/RASH Verified 10/08/24 23:41 Sulfa (Sulfonamide Allergy Severe ITCHY,RASH, Verified 10/08/24 23:41 Antibiotics) rash [Sulfa (Sulfonamides)] trimethoprim [From Bactrim] Allergy Severe HIVES Verified 10/08/24 23:41 Review of Systems Constitutional: Constitutional: Denies body ache(s), Denies chills, Denies fever(s) and Denies headache(s) Eyes: Eyes: Denies blurry vision ENT: Reports vertigo, Reports dizziness and Denies headache(s) Cardiovascular: Cardiovascular: Denies chest pain and Denies dyspnea Respiratory: Respiratory: Denies cough and Denies dyspnea Gastrointestinal: Gastrointestinal: Denies abdominal pain, Denies nausea and Denies vomiting Musculoskeletal: Musculoskeletal: Denies back pain Integumentary/Breasts: Skin/Breast: Denies rash Neurologic: Reports vertigo, Reports dizziness and Denies headache(s) Psychiatric: Psychiatric: Reports anxiety PMFSH Past Medical History 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 or 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 (home care aide) Unable to assess alcohol history related to: Unknown Alcohol intake: never Patient Tobacco Use Status: Never used Tobacco Advance Directives: Yes Advance Directives on File: Yes Advance Directives Date on File: 01/28/24 service: No Physical Exam Vital Signs: Vital Signs: Last Vital Signs Temp 98.0 F 10/09/24 00:28 Pulse 74 10/09/24 00:28 Resp 18 10/09/24 00:28 BP 108/67 10/09/24 00:28 Pulse Ox 98 10/09/24 00:28 O2 Del Method Room Air 10/09/24 00:28 BMI result Body Mass Index 28.0 Const: General: healthy appearing, comfortable, no acute distress, alert and awake Nutritional Appearance: well nourished Orientation/consciousness: patient oriented x3 HEENT: Head: Yes normocephalic and Yes atraumatic Neck: Neck: Yes full ROM Resp: Effort & Inspection: normal respiratory effort, able to speak in complete sentences and not labored Cardio: Rate: regular rate Rhythm: regular rhythm GI: Inspection: No distended Palpation (GI): Soft to palpation, not firm, nontender, no guarding and not rigid Skin: General skin exam: elasticity normal Neuro: General: patient oriented x3 Cranial nerves: Yes Bilaterally intact EOM present Cognition (Neuro): normal cognition Medical Decision Making Medical Decision Making [facility] Narrative: 79-year-old female presents for evaluation of initially itching in her groin. This sounds most consistent with a yeast infection, we will also get a urinalysis. She then complains of dizziness. Plan for basic labs, EKG and orthostatics. She is quite well appearing, does have a history of vertigo. She has an NIH stroke score is 0 Differential Diagnosis Differential Diagnoses: The differential diagnosis associated with the presentation includes Dizziness Vertigo UTI Yeast infection Lab Data 10/09/24 00:41 10/09/24 00:41 Labs: Lab Results 10/09/24 10/09/24 Range/Units 00:32 00:41 WBC 7.1 (4.8-10.8) X10*3/uL RBC 3.70 L (4.20-5.50) X10*6/uL Hgb 10.8 L (12.0-16.0) g/dl Hct 32.0 L (37.0-47.0) % MCV 86.5 (80.0-98.0) fL MCH 29.2 (27.0-33.0) pg MCHC 33.8 (31.0-35.0) g/dl RDW 13.3 (11.0-16.0) % Plt Count 265 (160-400) X10*3/uL MPV 8.1 L (9.4-12.3) fL Immature Gran % (Auto) 0.4 (0.0-0.4) % Neut % (Auto) 65.2 (45-73) % Lymph % (Auto) 23.3 (20-40) % Wythe % (Auto) 8.9 (2-11) % Eos % (Auto) 1.6 (0-4) % Baso % (Auto) 0.6 (0-2) % Lymph # (Auto) 1.6 (1.2-4.9) X10*3/uL Wy[place] # (Auto) 0.6 (0.1-1.2) X10*3/uL Eos # (Auto) 0.1 (0.0-0.4) X10*3/uL Baso # (Auto) 0.0 (0.0-0.2) X10*3/uL Abs Immat Gran (auto) 0.03 (0.00-0.03) X10*3/uL Absolute Neuts (auto) 4.6 (2.0-8.3) x10*3/uL Absolute Nucleated RBC 0.000 (0.0-0.012) X10*3/uL Nucleated RBC % (auto) 0.0 (0.0-0.2) /100WBC Sodium 139 (135-145) mmol/L Potassium 4.5 (3.3-5.1) mmol/L Chloride 104 (96-108) mmol/L Carbon Dioxide 26 (22-29) mmol/L Anion Gap 14 (12-20) BUN 25 H (9-16) mg/dL Creatinine 1.04 (0.5-1.4) mg/dL Estim Creat Clear Calc 48.0 Estimated GFR 51 Random Glucose 111 (60-115) mg/dL Calcium 9.1 D (8.4-10.2) mg/dL Total Bilirubin 0.2 (0.0-1.0) mg/dL AST 27 (5-31) U/L ALT 16 (0-31) U/L Alkaline Phosphatase 66 (39-117) U/L Total Protein 7.2 (6.5-8.0) g/dL Albumin 3.9 (3.5-5.0) g/dL Urine Color Yellow Urine Appearance Hazy Urine pH 5.5 (5.0-9.0) Ur Specific Gallion 1.025 (1.005-1.025) Urine Protein Negative (Neg-Trace) mg/dL Urine Glucose (UA) Negative (Negative) mg/dL Urine Ketones Negative (Negative) mg/dL Urine Blood Trace (Negative) Urine Nitrite Negative (Negative) Ur Leukocyte Esterase Moderate (2+) H (Negative) Urine RBC 3-5 H (0-2) /HPF Urine WBC 6-10 H (0-5) /HPF Urine WBC Clumps Present Ur Squamous Epith Cells 6-10 (0-2) /HPF Other Crystals Present Urine Bacteria 1+ (None Seen) Hyaline Casts 0-2 (0-2) /LPF Discharge Plan Discharge Clinical Impression: Dizziness, Acute UTI Patient Disposition: Home, Self-Care Instructions: Urinary Tract Infection in Women (ED), Dizziness (ED) Additional Instructions: Take the Macrobid twice daily for the next 3 days. You may use the Monistat ointment to help with the vaginal itching Follow-up with your OBGYN Prescriptions: New nitrofurantoin monohyd/m-cryst [Macrobid] 100 mg capsule 100 mg PO Q12H 3 Days Qty: 6 0RF Rx Instructions: must administer with a meal/food miconazole nitrate [Monistat 7] 2 % cream 1 appful vaginal BEDTIME 7 Days Qty: 45 0RF No Action metoprolol succinate 50 mg tablet extended release 24 hr 50 mg PO DAILY Qty: 90 2RF mirtazapine 45 mg Tablet 45 mg PO BEDTIME omeprazole 20 mg Tablet,Delayed Release (Dr/Ec) 20 mg PO DAILY@0630 fluticasone propionate [Flonase Allergy Relief] 50 mcg/actuation spray,suspension 2 spray intranasal DAILY Qty: 16 0RF Rx Instructions: administer into each nostril hydroxyzine HCl 25 mg tablet 25 mg PO TID PRN (Reason: anxiety) Qty: 6 0RF hydroxyzine HCl 25 mg tablet 25 mg PO TID PRN (Reason: anxiety) Qty: 20 0RF trazodone 50 mg tablet 50 mg PO BEDTIME ferrous sulfate [FeroSul] 325 mg (65 mg iron) tablet 325 mg PO DAILY diphenhydramine HCl [Lou-Dryl] 25 mg tablet 25 mg PO BEDTIME PRN (Reason: itch) bisacodyl 5 mg tablet,delayed release (DR/EC) 5 mg PO DAILY PRN (Reason: constipation) rosuvastatin 20 mg tablet 20 mg PO BEDTIME aspirin 81 mg tablet,delayed release (DR/EC) 81 mg PO QAM multivitamin Tablet 1 tab PO QAM melatonin 10 mg tablet extended release 10 mg PO BEDTIME PRN (Reason: Insomnia) cholecalciferol (vitamin D3) 25 mcg (1,000 unit) tablet 25 mcg PO DAILY ondansetron 4 mg tablet,disintegrating 4 mg PO Q6H PRN (Reason: nausea and vomiting) Qty: 10 0RF acetaminophen 500 mg tablet 500 mg PO Q8H PRN (Reason: pain) zolpidem 5 mg tablet 5 mg PO BEDTIME PRN (Reason: Insomnia) ipratropium bromide 21 mcg (0.03 %) spray,non-aerosol 2 spray intranasal BID clonazepam 0.5 mg Tablet 0.5 mg PO TID Qty: 180 0RF gabapentin 100 mg Capsule 100 mg PO TID Qty: 180 0RF valsartan 160 mg tablet 160 mg PO DAILY Qty: 90 1RF amlodipine 10 mg tablet 10 mg PO DAILY meclizine 25 mg tablet 25 mg PO DAILY PRN Print Language: Northern Irish
[2024-10-09 00:47] LABS: MANUAL DIFF FLAG NO
[2024-10-09 00:50] LABS: Basophils Percent Auto 0.6 % (0-2); Eosinophils Absolute Auto 0.1 X10*3/uL (0.0-0.4); Eosinophils Percent Auto 1.6 % (0-4); Hemoglobin 10.8 g/dl (12.0-16.0); Imm Gran Abs Auto 0.03 X10*3/uL (0.00-0.03); Imm Gran Pct Auto 0.4 % (0.0-0.4); Lymphocytes Absolute Auto 1.6 X10*3/uL (1.2-4.9); Lymphocytes Percent Auto 23.3 % (20-40); Mean Corpuscular HGB Conc 33.8 g/dl (31.0-35.0); Mean Corpuscular Hemoglobin 29.2 pg (27.0-33.0); Mean Corpuscular Volume 86.5 fL (80.0-98.0); Mean Platelet Volume 8.1 fL (9.4-12.3); Monocytes Absolute Auto 0.6 X10*3/uL (0.1-1.2); Monocytes Percent Auto 8.9 % (2-11); Neutrophils Absolute Auto 4.6 x10*3/uL (2.0-8.3); Neutrophils Percent Auto 65.2 % (45-73); Platelet Count 265 X10*3/uL (160-400); Red Cell Distribution Width 13.3 % (11.0-16.0); White Blood Count 7.1 X10*3/uL (4.8-10.8)
[2024-10-09 00:51] LABS: Appearance Urine Hazy; Color Urine Yellow; Glucose Urine UA Negative (Negative); Leukocyte Esterase Urine Moderate (2+) (Negative); Nitrite Urine Negative (Negative); PH 5.5 (5.0-9.0); Specific Gravity - Urine 1.025 (1.005-1.025); UMIC TRIGGER UACC YES; Urine Blood Trace (Negative); Urine Ketones Negative (Negative); Urine Protein Negative (Neg-Trace)
[2024-10-09 01:01] LABS: Bacteria Urine 1+ (None Seen); Hyaline Casts Urine 0-2 /LPF (0-2); Other Crystals Urine Present; UACC Culture Trigger YES; WBC Clumps Urine Present
[2024-10-09 01:14] LABS: Alanine Aminotransferase 16 U/L (0-31); Albumin Level 3.9 g/dL (3.5-5.0); Alkaline Phosphatase 66 U/L (39-117); Anion Gap 14 (12-20); Aspartate Amino Transferase 27 U/L (5-31); Bilirubin Total 0.2 mg/dL (0.0-1.0); Blood Urea Nitrogen 25 mg/dL (9-16); Calcium 9.1 mg/dL (8.4-10.2); Carbon Dioxide 26 mmol/L (22-29); Chloride 104 mmol/L (96-108); Estimated Glomerular Filt Rate 51; Glucose Random 111 mg/dL (60-115); Potassium 4.5 mmol/L (3.3-5.1); Sodium 139 mmol/L (135-145); Total Protein 7.2 g/dL (6.5-8.0)
[2024-10-09 01:47] VITALS: BP 108/67; PULSE 74; RESP 18; TEMP 36.7; O2SAT 98
== END 2024-10-09 01:47 | disposition home or self-care (01) ==
PROVIDERS: Physician Assistant; Emergency Provider Emergency Medicine; PCP Internal Medicine Geriatric Medicine
DX: R42 Dizziness and giddiness (principal); N39.0 Urinary tract infection, site not specified
CPT/HCPCS: 87086; 93005; 99285

== ENCOUNTER → 2024-10-09 00:28 | Outpatient (BNV) | payer OTHER, SELFPAY | PROVIDERS: Emergency Provider Emergency Medicine; PCP Internal Medicine Geriatric Medicine; Visit Provider Internal Medicine | DX: I49.8 Other specified cardiac arrhythmias (principal) | CPT/HCPCS: 93010 ==

== ENCOUNTER 2024-10-09 19:13 | Emergency (ER) | payer OTHER, SELFPAY ==
[2024-10-09 19:22] VITALS: BP 112/68; PULSE 78; RESP 20; TEMP 36.9; O2SAT 97; BMI 28.2
--- NOTE | 2024-10-09 20:29 | ED.WOUNDLAC ---
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 Reports the laceration is localized to the web space between her left thumb and left index finger. Bleeding controlled on arrival. Not on anticoagulation. She has no other concerns at this time. Unsure of tetanus status. Related Data Home Medications ?Medication ?Instructions ?Recorded ?Confirmed mirtazapine 45 mg tablet 45 mg PO BEDTIME 08/09/20 09/29/24 omeprazole 20 mg tablet,delayed 20 mg PO DAILY@0630 08/09/20 09/29/24 release aspirin 81 mg tablet,delayed 81 mg PO QAM 01/28/24 09/29/24 release bisacodyl 5 mg tablet,delayed 5 mg PO DAILY PRN constipation 01/28/24 09/29/24 release diphenhydramine HCl 25 mg tablet 25 mg PO BEDTIME PRN itch 01/28/24 09/29/24 (Lou-Dryl) ferrous sulfate 325 mg (65 mg 325 mg PO DAILY 01/28/24 09/29/24 iron) tablet (FeroSul) melatonin 10 mg tablet,extended 10 mg PO BEDTIME PRN Insomnia 01/28/24 09/29/24 release multivitamin 1 tab PO QAM 01/28/24 09/29/24 rosuvastatin 20 mg tablet 20 mg PO BEDTIME 01/28/24 09/29/24 trazodone 50 mg tablet 50 mg PO BEDTIME 01/28/24 09/29/24 amlodipine 10 mg tablet 10 mg PO DAILY 02/09/24 09/29/24 acetaminophen 500 mg tablet 500 mg PO Q8H PRN pain 08/09/24 09/29/24 ipratropium bromide 21 mcg (0.03 2 spray intranasal BID 08/09/24 09/29/24 %) nasal spray zolpidem 5 mg tablet 5 mg PO BEDTIME PRN Insomnia 08/09/24 09/29/24 cholecalciferol (vitamin D3) 25 25 mcg PO DAILY 08/20/24 09/29/24 mcg (1,000 unit) tablet meclizine 25 mg tablet 25 mg PO DAILY PRN 09/29/24 09/29/24 Previous Rx's ?Medication ?Instructions ?Recorded metoprolol succinate 50 mg 50 mg PO DAILY #90 tabs 09/28/20 tablet,extended release 24 hr fluticasone propionate 50 2 spray intranasal DAILY #16 grams 09/16/23 mcg/actuation nasal spray,suspension (Flonase Allergy Relief) ondansetron 4 mg disintegrating 4 mg PO Q6H PRN nausea and 04/28/24 tablet vomiting #10 tabs hydroxyzine HCl 25 mg tablet 25 mg PO TID PRN anxiety #6 tabs 08/07/24 clonazepam 0.5 mg tablet 0.5 mg PO TID #180 tabs 08/10/24 gabapentin 100 mg capsule 100 mg PO TID #180 caps 08/10/24 valsartan 160 mg tablet 160 mg PO DAILY #90 tabs 08/20/24 hydroxyzine HCl 25 mg tablet 25 mg PO TID PRN anxiety #20 tabs 09/09/24 miconazole nitrate 2 % vaginal 1 appful vaginal BEDTIME 7 days 10/09/24 cream (Monistat 7) #45 grams nitrofurantoin 100 mg PO Q12H 3 days #6 caps 10/09/24 monohydrate/macrocrystals 100 mg capsule (Macrobid) Allergies Allergy/AdvReac Type Severity Reaction Status Date / Time penicillin G [Penicillin G] Allergy Severe ITCHY/RASH Verified 10/09/24 19:24 Sulfa (Sulfonamide Allergy Severe ITCHY,RASH, Verified 10/09/24 19:24 Antibiotics) rash [Sulfa (Sulfonamides)] trimethoprim [From Bactrim] Allergy Severe HIVES Verified 10/09/24 19:24 Review of Systems Review of Systems: Constitutional: No fever, chills, fatigue, night sweats, weight changes ENT/Mouth: No ear pain, hearing loss, nasal congestion, sinus pain, rhinorrhea, sore throat Eyes: No eye pain, swelling, redness, vision changes, discharge Cardio: No chest pain, palpitations, JAMISON, orthopnea, peripheral edema Pulm: No SOB, cough, sputum, wheezing, dyspnea, hemoptysis GI: No nausea, vomiting, hematemesis, abdominal pain, diarrhea, constipation, hematochezia, melena : No irregular bleeding, dysuria, frequency, urgency, hesitancy, hematuria, flank pain, urinary flow changes, urinary incontinence or retention MSK: No back pain, neck pain, joint pain, myalgias Skin: No lesions, rashes, +laceration Neuro: No weakness, numbness, paresthesias, LOC, dizziness, headache Psych: No anxiety/panic, depression, SI/HI, AH/VH All other systems reviewed and are negative. [facility] Past Medical History Attestation statement: The following information was validated with the patient. 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 Skin: +see below Head: Normocephalic, atraumatic. EENT: Hearing is intact b/l. Conjunctiva clear. PERRLA. EOM intact. Moist mucous membranes.? Cardiac: Chest wall symmetric. RRR Lungs: Normal respiratory effort without accessory muscle use Ext: +1.5 cm linear superficial laceration noted to webbed space between left 1st and 2nd digit, bleeding controlled. no fb. no involvement of deeper structures. finger to thumb opposition intact. finger strength intact. 2+ radial/ ulnar pulse intact. Neuro: AOx3. Normal speech. Ambulating with steady gait. Psych: Appropriate mood and affect. Responds appropriately to questions. Medical Decision Making Medical Decision Making MDM Narrative: 79 year old north korean speaking female with pmhx significant for CKD, anxiety, vertigo, HTN, dementia presents to the ED today via EMS from home for evaluation of laceration sustained while attempting to open a can of beans with a knife KENNEL AIDE. Vital signs stable. afebrile. she is nontoxic appearing and in NAD. on exam, there is a 1.5 cm linear superficial laceration noted to webbed space between left 1st and 2nd digit, bleeding controlled. no fb. no involvement of deeper structures. finger to thumb opposition intact. finger strength intact. 2+ radial/ ulnar pulse intact. Differential diagnosis include abrasion, laceration. Unlikely ligament/ tendon injury, fracture, retained FB Tetnus updated in October of 2023. Laceration washed out with iodine and saline. Lac repaired with dermabond and steri strips. No active bleeding. No concern for ligament/ tendon injury. Patient has remained stable throughout ED visit today. Discussed worrisome signs and symptoms and when to return to the ED. All questions answered at this time. Patient is agreeable with disposition and stable for discharge. Differential Diagnosis Differential Diagnoses: The differential diagnosis associated with the presentation includes as above Admission/Observation Not indicated Independent Historian Clinical information obtained from an independent historian. History obtained from or confirmed by: EMS External Record Review External record reviewed: Inpatient record Social Determinants Patient?s care significantly limited by Social Determinants of Health including: Other Social Determinant of Health Procedures Laceration Laceration 1: Site: hand Side (If applicable): left Size (cm): 1.5 Description: linear Depth: simple, single layer Pre-repair: wound explored and irrigated extensively Skin layer closed with: other (dermabond, steristrips) Discharge Plan Discharge Clinical Impression: Finger laceration Patient Disposition: Home, Self-Care Instructions: Laceration (ED), Skin Adhesive Care (ED), Steristrips (ED) Additional Instructions: You have been evaluated in the Emergency Department today for a laceration between your left thumb and index finger. Your laceration was repaired in the ED with skin glue and steri strips. Please keep the area surrounding the laceration clean and dry. Please keep the area out of the sunlight for the next 6 months to help prevent scarring.? If you develop redness or swelling at the site of your laceration please come back to the ER for a wound check. I recommend you take 600mg ibuprofen every 6 hours or tylenol 650mg every 6 hours as needed for pain. If needed, you can alternate these medications so that you take one medication every 3 hours. For example, at noon take ibuprofen, then at 3pm take tylenol, then at 6pm take ibuprofen. Return to the Emergency Department if you experience discharge from your laceration, redness around your laceration, warmth around your laceration, fever, vomiting, numbness, tingling, or any other concerning symptoms. In the case of an emergency call 911. Prescriptions: No Action metoprolol succinate 50 mg tablet extended release 24 hr 50 mg PO DAILY Qty: 90 2RF mirtazapine 45 mg Tablet 45 mg PO BEDTIME omeprazole 20 mg Tablet,Delayed Release (Dr/Ec) 20 mg PO DAILY@0630 fluticasone propionate [Flonase Allergy Relief] 50 mcg/actuation spray,suspension 2 spray intranasal DAILY Qty: 16 0RF Rx Instructions: administer into each nostril hydroxyzine HCl 25 mg tablet 25 mg PO TID PRN (Reason: anxiety) Qty: 6 0RF hydroxyzine HCl 25 mg tablet 25 mg PO TID PRN (Reason: anxiety) Qty: 20 0RF trazodone 50 mg tablet 50 mg PO BEDTIME ferrous sulfate [FeroSul] 325 mg (65 mg iron) tablet 325 mg PO DAILY diphenhydramine HCl [Lou-Dryl] 25 mg tablet 25 mg PO BEDTIME PRN (Reason: itch) bisacodyl 5 mg tablet,delayed release (DR/EC) 5 mg PO DAILY PRN (Reason: constipation) rosuvastatin 20 mg tablet 20 mg PO BEDTIME aspirin 81 mg tablet,delayed release (DR/EC) 81 mg PO QAM multivitamin Tablet 1 tab PO QAM melatonin 10 mg tablet extended release 10 mg PO BEDTIME PRN (Reason: Insomnia) cholecalciferol (vitamin D3) 25 mcg (1,000 unit) tablet 25 mcg PO DAILY ondansetron 4 mg tablet,disintegrating 4 mg PO Q6H PRN (Reason: nausea and vomiting) Qty: 10 0RF acetaminophen 500 mg tablet 500 mg PO Q8H PRN (Reason: pain) zolpidem 5 mg tablet 5 mg PO BEDTIME PRN (Reason: Insomnia) ipratropium bromide 21 mcg (0.03 %) spray,non-aerosol 2 spray intranasal BID clonazepam 0.5 mg Tablet 0.5 mg PO TID Qty: 180 0RF gabapentin 100 mg Capsule 100 mg PO TID Qty: 180 0RF nitrofurantoin monohyd/m-cryst [Macrobid] 100 mg capsule 100 mg PO Q12H 3 Days Qty: 6 0RF Rx Instructions: must administer with a meal/food miconazole nitrate [Monistat 7] 2 % cream 1 appful vaginal BEDTIME 7 Days Qty: 45 0RF valsartan 160 mg tablet 160 mg PO DAILY Qty: 90 1RF amlodipine 10 mg tablet 10 mg PO DAILY meclizine 25 mg tablet 25 mg PO DAILY PRN Print Language: Syriac
[2024-10-09 20:40] VITALS: BP 112/68; PULSE 78; RESP 20; TEMP 36.9; O2SAT 97
== END 2024-10-09 20:52 | disposition home or self-care (01) ==
PROVIDERS: Emergency Provider Emergency Medicine Emergency Medical Services; PCP Internal Medicine Geriatric Medicine
DX: S61.412A Laceration without foreign body of left hand, initial encounter (principal); W26.0XXA Contact with knife, initial encounter; N39.0 Urinary tract infection, site not specified; R42 Dizziness and giddiness; Y93.G9 Activity, other involving cooking and grilling; Y92.039 Unspecified place in apartment as the place of occurrence of the external cause; Y99.9 Unspecified external cause status
CPT/HCPCS: 12001; 36415; 80053; 81001; 85025; 87086; 93005; 99282; 99283; 99284; 99285

== ENCOUNTER 2024-10-12 07:28 | Emergency (ER) | payer OTHER, SELFPAY ==
--- NOTE | ~2024-10-12 | CT_ITS ---
EXAMINATION: CT HEAD WITHOUT CONTRAST CLINICAL INFORMATION: Fall COMPARISON: CT head from 09/19/2024 TECHNIQUE: Contiguous axial imaging was performed from the skull base to vertex without intravenous administration of contrast. This CT examination was performed using dose optimization techniques as appropriate, variously including the following: *Automated exposure control *Adjustment of mA and/or kV according to patient size (this includes techniques or standardized protocols for targeted exams where dose is matched to indication/reason for exam; i.e. extremities or head) *Use of iterative reconstruction technique DLP: 1194 mGy-cm FINDINGS: There is no evidence of acute intracranial hemorrhage or territorial infarction. Chronic white matter small vessel ischemic changes. Cerebral atrophy. No abnormal mass effect or midline shift is seen. Chatterjee to white matter differentiation is well preserved. No extra-axial fluid collections are identified. The ventricles are normal in size. There is no abnormal attenuation within the brain parenchyma. The osseous structures and soft tissues are normal. The mastoid air cells and visualized portions of the paranasal sinuses are well aerated. CT/CT head/brain wo IV con IMPRESSION: 1. No acute intracranial pathology. 2. Chronic white matter small vessel ischemic changes. EXAMINATION: Noncontrast CT scan of the cervical spine. INDICATION: Fall COMPARISON: CT cervical spine from 09/2024 TECHNIQUE: Helical, multidetector axial images were obtained from the occiput to the upper thorax. Coronal and sagittal reformats of the cervical spine were provided for interpretation. DLP: 1194 mGy-cm FINDINGS: No acute fractures or dislocations of the cervical spine are seen. Straightening of the normal cervical curvature. Grade 1 anterolisthesis of C4-5. Multilevel degenerative changes. Anatomic alignment and positioning of the vertebral bodies and posterior elements is noted. The atlantoaxial joint and craniovertebral articulations are normal without evidence of subluxation. There is no prevertebral soft tissue swelling. Redemonstrated calcifications in right lung apex. Visualized portions of the thyroid IMPRESSION: 1. No acute visible fracture or dislocation. 2. Straightening of the normal cervical curvature. 3. Grade 1 anterolisthesis of C4-5. 4. Multilevel degenerative changes. Electronically signed by: Daina Mason MD 10/12/2024 12:38 PM [facility]
--- NOTE | ~2024-10-12 | CT_ITS ---
EXAMINATION: CT HEAD WITHOUT CONTRAST CLINICAL INFORMATION: Fall COMPARISON: CT head from 09/19/2024 TECHNIQUE: Contiguous axial imaging was performed from the skull base to vertex without intravenous administration of contrast. This CT examination was performed using dose optimization techniques as appropriate, variously including the following: *Automated exposure control *Adjustment of mA and/or kV according to patient size (this includes techniques or standardized protocols for targeted exams where dose is matched to indication/reason for exam; i.e. extremities or head) *Use of iterative reconstruction technique DLP: 1194 mGy-cm FINDINGS: There is no evidence of acute intracranial hemorrhage or territorial infarction. Chronic white matter small vessel ischemic changes. Cerebral atrophy. No abnormal mass effect or midline shift is seen. Chattrejee to white matter differentiation is well preserved. No extra-axial fluid collections are identified. The ventricles are normal in size. There is no abnormal attenuation within the brain parenchyma. The osseous structures and soft tissues are normal. The mastoid air cells and visualized portions of the paranasal sinuses are well aerated. CT/CT cervical spine wo IV con IMPRESSION: 1. No acute intracranial pathology. 2. Chronic white matter small vessel ischemic changes. EXAMINATION: Noncontrast CT scan of the cervical spine. INDICATION: Fall COMPARISON: CT cervical spine from 09/2024 TECHNIQUE: Helical, multidetector axial images were obtained from the occiput to the upper thorax. Coronal and sagittal reformats of the cervical spine were provided for interpretation. DLP: 1194 mGy-cm FINDINGS: No acute fractures or dislocations of the cervical spine are seen. Straightening of the normal cervical curvature. Grade 1 anterolisthesis of C4-5. Multilevel degenerative changes. Anatomic alignment and positioning of the vertebral bodies and posterior elements is noted. The atlantoaxial joint and craniovertebral articulations are normal without evidence of subluxation. There is no prevertebral soft tissue swelling. Redemonstrated calcifications in right lung apex. Visualized portions of the thyroid IMPRESSION: 1. No acute visible fracture or dislocation. 2. Straightening of the normal cervical curvature. 3. Grade 1 anterolisthesis of C4-5. 4. Multilevel degenerative changes. Electronically signed by: Daina Mason MD 10/12/2024 12:38 PM [facility] [place]
[2024-10-12 07:40] VITALS: BP 134/57; PULSE 96; RESP 18; TEMP 37.4; O2SAT 95; BMI 20.4
[2024-10-12] MEDS: Acetaminophen 325 MG TABLET 650 MG PO ×2 (07:51→12:52)
--- NOTE | 2024-10-12 08:47 | PC.NURSE ---
pt to CT at this time.
--- NOTE | 2024-10-12 09:01 | PC.NURSE ---
pt to CT at this time.
--- NOTE | 2024-10-12 09:25 | ED.GENADULT ---
HPI - General Adult General Chief complaint: Fall Stated complaint: FALL,HEAD PAIN PER EMS Time Seen by Provider: 10/12/24 09:04 Source: patient and department supervisor Mode of arrival: ambulatory Limitations: language barrier History of Present Illness ED Provider: Donn HPI narrative: Patient is an 79-year-old female with history of dementia, HTN, CKD stage 3, arthritis presenting to the emergency department with complaint of right-sided head pain after a fall yesterday. States that as she was opening the door to the grocery store after getting off the transportation bus, she fell and hit her head. She denies loss consciousness. She is not anticoagulated. She denies any other pain or complaints. Reports moderate headache. Denies blurred vision, double vision or other visual changes. Denies dizziness or lightheadedness. Has not taken any [id number] medications for her symptoms. Medicated with Tylenol in triage with some relief. MD complaint: head injury Onset (ago): day(s) Location: head Radiation: non-radiation Severity: moderate Quality: aching Pain Consistency: constant Associated symptoms: denies other symptoms Treatments prior to arrival: none Related Data Home Medications ?Medication ?Instructions ?Recorded ?Confirmed mirtazapine 45 mg tablet 45 mg PO BEDTIME 08/09/20 09/29/24 omeprazole 20 mg tablet,delayed 20 mg PO DAILY@0630 08/09/20 09/29/24 release aspirin 81 mg tablet,delayed 81 mg PO QAM 01/28/24 09/29/24 release bisacodyl 5 mg tablet,delayed 5 mg PO DAILY PRN constipation 01/28/24 09/29/24 release diphenhydramine HCl 25 mg tablet 25 mg PO BEDTIME PRN itch 01/28/24 09/29/24 (Lou-Dryl) ferrous sulfate 325 mg (65 mg 325 mg PO DAILY 01/28/24 09/29/24 iron) tablet (FeroSul) melatonin 10 mg tablet,extended 10 mg PO BEDTIME PRN Insomnia 01/28/24 09/29/24 release multivitamin 1 tab PO QAM 01/28/24 09/29/24 rosuvastatin 20 mg tablet 20 mg PO BEDTIME 01/28/24 09/29/24 trazodone 50 mg tablet 50 mg PO BEDTIME 01/28/24 09/29/24 amlodipine 10 mg tablet 10 mg PO DAILY 02/09/24 09/29/24 acetaminophen 500 mg tablet 500 mg PO Q8H PRN pain 08/09/24 09/29/24 ipratropium bromide 21 mcg (0.03 2 spray intranasal BID 08/09/24 09/29/24 %) nasal spray zolpidem 5 mg tablet 5 mg PO BEDTIME PRN Insomnia 08/09/24 09/29/24 cholecalciferol (vitamin D3) 25 25 mcg PO DAILY 08/20/24 09/29/24 mcg (1,000 unit) tablet meclizine 25 mg tablet 25 mg PO DAILY PRN 09/29/24 09/29/24 Previous Rx's ?Medication ?Instructions ?Recorded metoprolol succinate 50 mg 50 mg PO DAILY #90 tabs 09/28/20 tablet,extended release 24 hr fluticasone propionate 50 2 spray intranasal DAILY #16 grams 09/16/23 mcg/actuation nasal spray,suspension (Flonase Allergy Relief) ondansetron 4 mg disintegrating 4 mg PO Q6H PRN nausea and 04/28/24 tablet vomiting #10 tabs hydroxyzine HCl 25 mg tablet 25 mg PO TID PRN anxiety #6 tabs 08/07/24 clonazepam 0.5 mg tablet 0.5 mg PO TID #180 tabs 08/10/24 gabapentin 100 mg capsule 100 mg PO TID #180 caps 08/10/24 valsartan 160 mg tablet 160 mg PO DAILY #90 tabs 08/20/24 hydroxyzine HCl 25 mg tablet 25 mg PO TID PRN anxiety #20 tabs 09/09/24 miconazole nitrate 2 % vaginal 1 appful vaginal BEDTIME 7 days 10/09/24 cream (Monistat 7) #45 grams nitrofurantoin 100 mg PO Q12H 3 days #6 caps 10/09/24 monohydrate/macrocrystals 100 mg capsule (Macrobid) Allergies Allergy/AdvReac Type Severity Reaction Status Date / Time penicillin G [Penicillin G] Allergy Severe ITCHY/RASH Verified 10/12/24 07:41 Sulfa (Sulfonamide Allergy Severe ITCHY,RASH, Verified 10/12/24 07:41 Antibiotics) rash [Sulfa (Sulfonamides)] trimethoprim [From Bactrim] Allergy Severe HIVES Verified 10/12/24 07:41 Review of Systems Review of Systems: As per HPI. Yes all other systems are reviewed and are negative Constitutional: Constitutional: Reports as per HPI [facility] Past Medical History 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 or 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 (employment counselor) Unable to assess alcohol history related to: Unknown Alcohol intake: never Patient Tobacco Use Status: Never used Tobacco Advance Directives: Yes Advance Directives on File: Yes Advance Directives Date on File: 01/28/24 Do you have a plan to hurt others: No Plan service: No Physical Exam ED Vital Signs: Vital Signs - 24 hr 10/12/24 07:40 10/12/24 10:42 Temperature 99.3 F 98.7 F Pulse Rate 96 113 H Respiratory Rate 18 18 Blood Pressure 134/57 L 144/83 H Pulse Oximetry 95 96 Oxygen Delivery Method Room Air Room Air BMI result Body Mass Index 20.4 Vital signs have been reviewed and appear to be correct. Blood pressure normal. Heart rate normal. Respiratory rate normal. Temperature normal. Oxygen saturation normal. Const General: cooperative, healthy appearing and no acute distress Orientation/consciousness: oriented to person, oriented to place, oriented to time and patient oriented x3 Limitations: no limitations [facility] Head: Yes normal to inspection, Yes No palpable skull fracture present, Yes normocephalic, No Gomes's sign, No occipital foramen tenderness, No raccoon eyes, Yes scalp tenderness (right occipital area) and No periorbital ecchymosis Ears: external ears normal, TM's normal bilaterally and EAC's normal General nose exam: Normal external nose present and Normal septum present Face and sinus: Yes face symmetric Mouth: oropharynx normal and moist mucous membranes Throat: Yes uvula midline Eyes Pupils: Equal, round and reactive pupils present Neck Neck: Yes normal visual inspection and Yes supple Resp Effort & Inspection: normal respiratory effort and able to speak in complete sentences Auscultation: clear to auscultation bilaterally Cardio Rate: regular rate Rhythm: regular rhythm Heart sounds: S1 normal heart sound present and S2 normal heart sound present GI Palpation (GI): Soft to palpation and nontender Auscultation: normoactive bowel sounds General: Yes no CVA tenderness Back/Spine/Pelvis Back: no CVA tenderness Cervical Spine: normal cervical lordosis, cervical ROM normal, No pain with cervical ROM, No Cervical spine tenderness and No step off deformity Thoracic/Lumbar Spine: thoracic and lumbar spine normal to inspection, thoraco-lumbar ROM normal, No pain with thoraco-lumbar ROM, No thoracic spinal tenderness and No lumbar spinal tenderness Pelvis: no pain with anterior-posterior compression and no pain with lateral compression Skin General skin exam: elasticity normal and turgor normal Neuro General: oriented to person, oriented to place, oriented to time, patient oriented x3, gait normal, tone normal, moves all extremities, Normal light touch and pain sensation, no focal motor deficits, CN's II-XI intact bilaterally and deep tendon reflexes 2+ bilaterally Cranial nerves: Yes Equal, round and reactive pupils present Cognition (Neuro): normal cognition Motor exam (neuro): 5/5 motor strength present throughout, Pronator motor function not present, Normal motor muscle tone present throughout and Motor abnormalities not present Extrem General: Yes full ROM, Yes no pedal edema and Yes no calf tenderness Psych Mental Status: mental status grossly normal Affect: normal affect Thought process: Normal thought process present Medications Administered Discontinued Medications Generic Name Dose Route Start Last Admin Trade Name Beau PRN Reason Stop Dose Admin Acetaminophen 650 mg 10/12/24 07:49 10/12/24 07:51 Acetaminophen 325 Mg Tablet PO 10/12/24 07:50 650 mg ONCE ONE Administration Medical Decision Making Medical Decision Making MDM Narrative: Patient is an 79-year-old female with history of dementia, HTN, CKD stage 3, arthritis presenting to the emergency department with complaint of right-sided head pain after a fall yesterday. On exam patient is awake, A+Ox3, VS WNL, afebrile, normal neurological exam without focal deficits, physical exam findings as above. Given reported symptoms and physical exam findings, initial differential includes contusion, concussion, ICH, skull or cervical vertebral fracture or subluxation. CT head and c-spine notable for no evidence of ICH, skull or cervical vertebral fracture or subluxation. My interpretation is in agreement with the radiologist's interpretation. Patient updated on results and all questions answered. Advised Tylenol or ibuprofen as needed for pain. Follow-up with PCP. Return precautions discussed. Patient verbalized understanding of and agreement with plan. In-person grades 9 12 tutor was utilized for all interactions, assessments, and discussions. Differential Diagnosis Differential Diagnoses: The differential diagnosis associated with the presentation includes As per [facility] Admission/Observation Consideration of admission/observation: Escalation of care including admission/observation considered Patient would have been admitted to the hospital had their work up had any findings where hospital admission was appropriate and their clinical presentation warranted hospital admission. Independent Interpretation I performed an independent interpretation of an: CT Scan Radiology Impression Discussion of test interpretation with radiology: I have reviewed the radiologist's reading. Radiologist Impression: IMPRESSION: 1. No acute visible fracture or dislocation. 2. Straightening of the normal cervical curvature. 3. Grade 1 anterolisthesis of C4-5. 4. Multilevel degenerative changes. CT/CT head/brain wo IV con IMPRESSION: 1. No acute intracranial pathology. 2. Chronic white matter small vessel ischemic changes. External Record Review External record reviewed: Inpatient record, Office record and Outpatient record Discharge Plan Discharge Clinical Impression: Contusion of head Patient Disposition: Home, Self-Care Instructions: Contusion in Adults (ED) Additional Instructions: You have been evaluated in the emergency department today for head injury. Your CT scans did not show signs of bleed or fractures in your head or neck. We recommend you take Tylenol 650 mg every 6 hours as needed for pain. Please schedule an appointment with for follow-up with your primary care provider as soon as possible. Return to the emergency department if you experience worsening or uncontrolled pain, vision changes, recurrent vomiting, difficulty with normal activities, abnormal behavior, difficulty walking, numbness, weakness, or any other concerning symptoms. Prescriptions: No Action metoprolol succinate 50 mg tablet extended release 24 hr 50 mg PO DAILY Qty: 90 2RF mirtazapine 45 mg Tablet 45 mg PO BEDTIME omeprazole 20 mg Tablet,Delayed Release (Dr/Ec) 20 mg PO DAILY@0630 fluticasone propionate [Flonase Allergy Relief] 50 mcg/actuation spray,suspension 2 spray intranasal DAILY Qty: 16 0RF Rx Instructions: administer into each nostril hydroxyzine HCl 25 mg tablet 25 mg PO TID PRN (Reason: anxiety) Qty: 6 0RF hydroxyzine HCl 25 mg tablet 25 mg PO TID PRN (Reason: anxiety) Qty: 20 0RF trazodone 50 mg tablet 50 mg PO BEDTIME ferrous sulfate [FeroSul] 325 mg (65 mg iron) tablet 325 mg PO DAILY diphenhydramine HCl [Lou-Dryl] 25 mg tablet 25 mg PO BEDTIME PRN (Reason: itch) bisacodyl 5 mg tablet,delayed release (DR/EC) 5 mg PO DAILY PRN (Reason: constipation) rosuvastatin 20 mg tablet 20 mg PO BEDTIME aspirin 81 mg tablet,delayed release (DR/EC) 81 mg PO QAM multivitamin Tablet 1 tab PO QAM melatonin 10 mg tablet extended release 10 mg PO BEDTIME PRN (Reason: Insomnia) cholecalciferol (vitamin D3) 25 mcg (1,000 unit) tablet 25 mcg PO DAILY ondansetron 4 mg tablet,disintegrating 4 mg PO Q6H PRN (Reason: nausea and vomiting) Qty: 10 0RF acetaminophen 500 mg tablet 500 mg PO Q8H PRN (Reason: pain) zolpidem 5 mg tablet 5 mg PO BEDTIME PRN (Reason: Insomnia) ipratropium bromide 21 mcg (0.03 %) spray,non-aerosol 2 spray intranasal BID clonazepam 0.5 mg Tablet 0.5 mg PO TID Qty: 180 0RF gabapentin 100 mg Capsule 100 mg PO TID Qty: 180 0RF nitrofurantoin monohyd/m-cryst [Macrobid] 100 mg capsule 100 mg PO Q12H 3 Days Qty: 6 0RF Rx Instructions: must administer with a meal/food miconazole nitrate [Monistat 7] 2 % cream 1 appful vaginal BEDTIME 7 Days Qty: 45 0RF valsartan 160 mg tablet 160 mg PO DAILY Qty: 90 1RF amlodipine 10 mg tablet 10 mg PO DAILY meclizine 25 mg tablet 25 mg PO DAILY PRN Print Language: Niuean
[2024-10-12 10:42] VITALS: BP 144/83; PULSE 113; RESP 18; TEMP 37.1; O2SAT 96
[2024-10-12 12:48] VITALS: BP 144/83; PULSE 113; RESP 18; TEMP 37.1; O2SAT 96
== END 2024-10-12 12:59 | disposition home or self-care (01) ==
PROVIDERS: Emergency Provider Emergency Medicine; PCP Internal Medicine Geriatric Medicine
DX: S00.93XA Contusion of unspecified part of head, initial encounter (principal); R51.9 Headache, unspecified; M54.2 Cervicalgia; W01.0XXA Fall on same level from slipping, tripping and stumbling without subsequent striking against object, initial encounter; Y93.89 Activity, other specified; Y92.811 Bus as the place of occurrence of the external cause; Y99.8 Other external cause status
CPT/HCPCS: 70450; 72125; 99283

== ENCOUNTER → 2024-10-17 13:00 | Outpatient (BNV) | payer OTHER, SELFPAY | PROVIDERS: Emergency Provider Emergency Medicine; Visit Provider Internal Medicine Cardiovascular Disease | DX: R07.9 Chest pain, unspecified (principal) | CPT/HCPCS: 93010 ==

== ENCOUNTER 2024-10-17 13:16 | Emergency (ER) | payer OTHER, SELFPAY ==
--- NOTE | ~2024-10-17 | XR_ITS ---
EXAMINATION: XR CHEST CLINICAL INFORMATION: cough COMPARISON: 09/20/2024 TECHNIQUE: 2 views of the chest were obtained. FINDINGS: No significant abnormality is noted involving the heart, lungs, mediastinum, bony thorax or soft tissues. No interval change when compared to 09/20/2024. XR/XR chest 2V IMPRESSION: Unremarkable examination. Electronically signed by: Scott Fermin MD 10/17/2024 06:04 PM [facility]
--- NOTE | 2024-10-17 13:00 | ECG_ITS ---
Test Reason : CHEST PAIN Blood Pressure : / mmHG Vent. Rate : 080 BPM Atrial Rate : 080 BPM P-R Int : 186 ms QRS Dur : 092 ms QT Int : 376 ms P-R-T Axes : 055 -18 032 degrees QTc Int : 433 ms Normal sinus rhythm with sinus arrhythmia Normal ECG When compared with ECG of 09-OCT-2024 00:51, No significant change was found Referred By: Kobe Sotelo Electronically Signed By:KATRINA PARSONS MD
--- NOTE | 2024-10-17 13:18 | ED.DIZZY ---
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 Patient also complains of headache and dizziness She reports vomiting small amounts earlier this morning. She has not had any fevers or chills. The patient reports that her cough started today She had some chest pain earlier today but currently does not have any chest pain She was requesting to be discharged at the time of my evaluation. She had been in the ER for 3 hours and reports that she feels better Related Data Home Medications ?Medication ?Instructions ?Recorded ?Confirmed mirtazapine 45 mg tablet 45 mg PO BEDTIME 08/09/20 09/29/24 omeprazole 20 mg tablet,delayed 20 mg PO DAILY@0630 08/09/20 09/29/24 release aspirin 81 mg tablet,delayed 81 mg PO QAM 01/28/24 09/29/24 release bisacodyl 5 mg tablet,delayed 5 mg PO DAILY PRN constipation 01/28/24 09/29/24 release diphenhydramine HCl 25 mg tablet 25 mg PO BEDTIME PRN itch 01/28/24 09/29/24 (Lou-Dryl) ferrous sulfate 325 mg (65 mg 325 mg PO DAILY 01/28/24 09/29/24 iron) tablet (FeroSul) melatonin 10 mg tablet,extended 10 mg PO BEDTIME PRN Insomnia 01/28/24 09/29/24 release multivitamin 1 tab PO QAM 01/28/24 09/29/24 rosuvastatin 20 mg tablet 20 mg PO BEDTIME 01/28/24 09/29/24 trazodone 50 mg tablet 50 mg PO BEDTIME 01/28/24 09/29/24 amlodipine 10 mg tablet 10 mg PO DAILY 02/09/24 09/29/24 acetaminophen 500 mg tablet 500 mg PO Q8H PRN pain 08/09/24 09/29/24 ipratropium bromide 21 mcg (0.03 2 spray intranasal BID 08/09/24 09/29/24 %) nasal spray zolpidem 5 mg tablet 5 mg PO BEDTIME PRN Insomnia 08/09/24 09/29/24 cholecalciferol (vitamin D3) 25 25 mcg PO DAILY 08/20/24 09/29/24 mcg (1,000 unit) tablet meclizine 25 mg tablet 25 mg PO DAILY PRN 09/29/24 09/29/24 Previous Rx's ?Medication ?Instructions ?Recorded metoprolol succinate 50 mg 50 mg PO DAILY #90 tabs 09/28/20 tablet,extended release 24 hr fluticasone propionate 50 2 spray intranasal DAILY #16 grams 09/16/23 mcg/actuation nasal spray,suspension (Flonase Allergy Relief) ondansetron 4 mg disintegrating 4 mg PO Q6H PRN nausea and 04/28/24 tablet vomiting #10 tabs hydroxyzine HCl 25 mg tablet 25 mg PO TID PRN anxiety #6 tabs 08/07/24 clonazepam 0.5 mg tablet 0.5 mg PO TID #180 tabs 08/10/24 gabapentin 100 mg capsule 100 mg PO TID #180 caps 08/10/24 valsartan 160 mg tablet 160 mg PO DAILY #90 tabs 08/20/24 hydroxyzine HCl 25 mg tablet 25 mg PO TID PRN anxiety #20 tabs 09/09/24 miconazole nitrate 2 % vaginal 1 appful vaginal BEDTIME 7 days 10/09/24 cream (Monistat 7) #45 grams nitrofurantoin 100 mg PO Q12H 3 days #6 caps 10/09/24 monohydrate/macrocrystals 100 mg capsule (Macrobid) Allergies Allergy/AdvReac Type Severity Reaction Status Date / Time penicillin G [Penicillin G] Allergy Severe ITCHY/RASH Verified 10/12/24 07:41 Sulfa (Sulfonamide Allergy Severe ITCHY,RASH, Verified 10/12/24 07:41 Antibiotics) rash [Sulfa (Sulfonamides)] trimethoprim [From Bactrim] Allergy Severe HIVES Verified 10/12/24 07:41 Penicillins Allergy Intermediate Hives Unverified 10/17/24 13:24 sulfamethoxazole Allergy Mild Hives Unverified 10/17/24 13:24 [From Bactrim] Review of Systems Constitutional: Constitutional: Denies body ache(s), Denies chills, Denies fever(s) and Reports headache(s) Eyes: Eyes: Denies blurry vision ENT: Denies vertigo, Reports headache(s) and Denies sore throat Cardiovascular: Cardiovascular: Reports chest pain and Reports dyspnea Respiratory: Respiratory: Reports cough, Denies pain with cough and Reports dyspnea Gastrointestinal: Gastrointestinal: Denies abdominal pain, Denies nausea and Reports vomiting Musculoskeletal: Musculoskeletal: Denies back pain Integumentary/Breasts: Skin/Breast: Denies rash Neurologic: Denies confusion, Denies vertigo and Reports headache(s) Psychiatric: Psychiatric: Reports anxiety and Denies confusion PMFSH Past Medical History 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) Unable to assess alcohol history related to: Unknown Alcohol intake: never Patient Tobacco Use Status: Never used Tobacco Advance Directives: No Advance Directives Information Provided: Yes Advance Directives Date on File: 01/28/24 service: No Physical Exam Vital Signs: Vital Signs: Last Vital Signs Temp 98.7 F 10/17/24 16:21 Pulse 84 10/17/24 16:21 Resp 16 10/17/24 16:21 BP 120/48 L 10/17/24 16:21 Pulse Ox 95 10/17/24 16:21 O2 Del Method Room Air 10/17/24 16:21 BMI result Body Mass Index 33.6 Const: General: No confusion Nutritional Appearance: well nourished Orientation/consciousness: No confusion HEENT: Head: Yes normocephalic and Yes atraumatic Eyes: Eyelids: Yes eyelids normal Conjunctivae: conjunctivae normal Sclerae: sclerae normal Corneas: corneas normal Pupils: Equal, round and reactive pupils present EOM: EOMs intact bilaterally Neck: Neck: Yes full ROM Resp: Effort & Inspection: normal respiratory effort, able to speak in complete sentences, no audible wheezes and not labored Auscultation: clear to auscultation bilaterally Cardio: Rate: regular rate Rhythm: regular rhythm GI: Inspection: No distended Palpation (GI): Soft to palpation, not firm, nontender, no guarding and not rigid Skin: General skin exam: no rashes or lesions noted and elasticity normal Neuro: General: No confusion Cranial nerves: Yes Equal, round and reactive pupils present and Yes Bilaterally intact EOM present Course Course Course Narrative: This is a rapid medical exam. Deferred additional HPI, ROS, PE to primary provider. 79 yo female with history of HTN, anxiety here with complaints chest discomfort, dizziness, shortness of breath, diaphoresis, vomiting since this morning with waking. Also complaining of feeling like her blood pressure is elevated with a headache. Patient did drop her blood pressure medications yesterday onto the ground and her last dose of her medication was yesterday. Patient dry heaving in triage Will obtain labs, EKG, chest x-ray, viral screen TRACIE Stiles APRN Reevaluation(s) Reevaluation #1: I attempted to call [facility] as the patient's x-ray report is still not back despite her x-ray being completed 3 hours ago. I did not receive an answer, still awaiting chest x-ray report Time: 16:43 Medications Administered Discontinued Medications Generic Name Dose Route Start Last Admin Trade Name Beau PRN Reason Stop Dose Admin Acetaminophen 650 mg 10/17/24 16:13 10/17/24 16:18 Acetaminophen 325 Mg Tablet PO 10/17/24 16:14 650 mg ONCE ONE Administration Hydroxyzine HCl 50 mg 10/17/24 16:13 10/17/24 16:18 Hydroxyzine Hcl 50 Mg Tablet PO 10/17/24 16:14 50 mg ONCE ONE Administration Medical Decision Making Medical Decision Making [facility] Narrative: 79-year-old female presents for evaluation of multiple complaints. She is well known to this facility as she presents frequently for various complaints. Given her acute cough with reported dizziness intermittent chest pain, she had a workup ordered in triage that included labs, EKG, chest x-ray. She does have a leukocytosis to 12.1 K with a left shift. She has a chronic anemia that is consistent with her baseline. This is a normocytic anemia. Her chemistries did not have any significant abnormalities, her BUN is slightly elevated to 33 with a creatinine of 1.4 which is slightly above her baseline of around 1.1 and BUN of 25. Troponin negative Differential Diagnosis Differential Diagnoses: The differential diagnosis associated with the presentation includes Pneumonia Acute cough Anxiety Viral syndrome Upper respiratory infection Lab Data MDM Lab Attestation statement: I reviewed the patient's lab results. As above 10/17/24 13:37 10/17/24 13:38 Labs: Lab Results 10/17/24 10/17/24 Range/Units 13:37 13:38 WBC 12.1 H (4.8-10.8) X10*3/uL RBC 3.65 L (4.20-5.50) X10*6/uL Hgb 10.5 L (12.0-16.0) g/dl Hct 31.3 L (37.0-47.0) % MCV 85.8 (80.0-98.0) fL MCH 28.8 (27.0-33.0) pg MCHC 33.5 (31.0-35.0) g/dl RDW 13.6 (11.0-16.0) % Plt Count 282 (160-400) X10*3/uL MPV 8.3 L (9.4-12.3) fL Immature Gran % (Auto) 0.5 H (0.0-0.4) % Neut % (Auto) 77.9 H (45-73) % Lymph % (Auto) 8.1 L (20-40) % [place] % (Auto) 8.1 (2-11) % Eos % (Auto) 5.0 H (0-4) % Baso % (Auto) 0.4 (0-2) % Lymph # (Auto) 1.0 L (1.2-4.9) X10*3/uL [place] # (Auto) 1.0 (0.1-1.2) X10*3/uL Eos # (Auto) 0.6 H (0.0-0.4) X10*3/uL Baso # (Auto) 0.1 (0.0-0.2) X10*3/uL Abs Immat Gran (auto) 0.06 H (0.00-0.03) X10*3/uL Absolute Neuts (auto) 9.5 H (2.0-8.3) x10*3/uL Absolute Nucleated RBC 0.000 (0.0-0.012) X10*3/uL Nucleated RBC % (auto) 0.0 (0.0-0.2) /100WBC PT 11.3 (10.9-12.4) SEC INR 1.0 (0.9-1.1) Sodium 139 (135-145) mmol/L Potassium 5.0 (3.3-5.1) mmol/L Chloride 107 (96-108) mmol/L Carbon Dioxide 24 (22-29) mmol/L Anion Gap 13 (12-20) BUN 33 H (9-16) mg/dL Creatinine 1.40 (0.5-1.4) mg/dL Estim Creat Clear Calc 32.7 Estimated GFR 36 Random Glucose 113 (60-115) mg/dL Calcium 9.2 (8.4-10.2) mg/dL Magnesium 2.3 (1.6-2.6) mg/dL Total Bilirubin 0.3 (0.0-1.0) mg/dL Direct Bilirubin 0.1 (0.0-0.5) mg/dL AST 36 H (5-31) U/L ALT 31 (0-31) U/L Alkaline Phosphatase 67 (39-117) U/L Troponin I High Sens < 2.7 (<3.5-17.0) ng/L Total Protein 7.4 (6.5-8.0) g/dL Albumin 3.8 (3.5-5.0) g/dL Influenza Type A (PCR) NEGATIVE (Negative) Influenza Type B (PCR) NEGATIVE (Negative) RSV RNA Qual (PCR) NEGATIVE (Negative) SARS-CoV-2 RNA (RT-PCR) NEGATIVE (Negative) Discharge Plan Discharge Clinical Impression: Acute cough Patient Disposition: Left Against Medical Advice Instructions: Acute Cough (ED) Additional Instructions: Follow-up with your primary doctor. You are leaving before your chest x-ray was read by the radiologist Return for new or worsening symptoms, especially chest pain, shortness of breath or fever Prescriptions: No Action metoprolol succinate 50 mg tablet extended release 24 hr 50 mg PO DAILY Qty: 90 2RF mirtazapine 45 mg Tablet 45 mg PO BEDTIME omeprazole 20 mg Tablet,Delayed Release (Dr/Ec) 20 mg PO DAILY@0630 fluticasone propionate [Flonase Allergy Relief] 50 mcg/actuation spray,suspension 2 spray intranasal DAILY Qty: 16 0RF Rx Instructions: administer into each nostril hydroxyzine HCl 25 mg tablet 25 mg PO TID PRN (Reason: anxiety) Qty: 6 0RF hydroxyzine HCl 25 mg tablet 25 mg PO TID PRN (Reason: anxiety) Qty: 20 0RF trazodone 50 mg tablet 50 mg PO BEDTIME ferrous sulfate [FeroSul] 325 mg (65 mg iron) tablet 325 mg PO DAILY diphenhydramine HCl [Lou-Dryl] 25 mg tablet 25 mg PO BEDTIME PRN (Reason: itch) bisacodyl 5 mg tablet,delayed release (DR/EC) 5 mg PO DAILY PRN (Reason: constipation) rosuvastatin 20 mg tablet 20 mg PO BEDTIME aspirin 81 mg tablet,delayed release (DR/EC) 81 mg PO QAM multivitamin Tablet 1 tab PO QAM melatonin 10 mg tablet extended release 10 mg PO BEDTIME PRN (Reason: Insomnia) cholecalciferol (vitamin D3) 25 mcg (1,000 unit) tablet 25 mcg PO DAILY ondansetron 4 mg tablet,disintegrating 4 mg PO Q6H PRN (Reason: nausea and vomiting) Qty: 10 0RF acetaminophen 500 mg tablet 500 mg PO Q8H PRN (Reason: pain) zolpidem 5 mg tablet 5 mg PO BEDTIME PRN (Reason: Insomnia) ipratropium bromide 21 mcg (0.03 %) spray,non-aerosol 2 spray intranasal BID clonazepam 0.5 mg Tablet 0.5 mg PO TID Qty: 180 0RF gabapentin 100 mg Capsule 100 mg PO TID Qty: 180 0RF nitrofurantoin monohyd/m-cryst [Macrobid] 100 mg capsule 100 mg PO Q12H 3 Days Qty: 6 0RF Rx Instructions: must administer with a meal/food miconazole nitrate [Monistat 7] 2 % cream 1 appful vaginal BEDTIME 7 Days Qty: 45 0RF valsartan 160 mg tablet 160 mg PO DAILY Qty: 90 1RF amlodipine 10 mg tablet 10 mg PO DAILY meclizine 25 mg tablet 25 mg PO DAILY PRN Stand Alone Forms: Against Medical Advice Print Language: Bulgarian
[2024-10-17 13:22] VITALS: BP 122/77; PULSE 83; RESP 18; TEMP 36.8; O2SAT 96; BMI 33.6
[2024-10-17 13:24] VITALS: BP 158/86; PULSE 96; O2SAT 97
[2024-10-17 13:42] LABS: MANUAL DIFF FLAG NO
[2024-10-17 13:45] LABS: Basophils Absolute Auto 0.1 X10*3/uL (0.0-0.2); Basophils Percent Auto 0.4 % (0-2); Eosinophils Absolute Auto 0.6 X10*3/uL (0.0-0.4); Hematocrit 31.3 % (37.0-47.0); Hemoglobin 10.5 g/dl (12.0-16.0); Imm Gran Abs Auto 0.06 X10*3/uL (0.00-0.03); Imm Gran Pct Auto 0.5 % (0.0-0.4); Lymphocytes Percent Auto 8.1 % (20-40); Mean Corpuscular HGB Conc 33.5 g/dl (31.0-35.0); Mean Corpuscular Hemoglobin 28.8 pg (27.0-33.0); Mean Corpuscular Volume 85.8 fL (80.0-98.0); Mean Platelet Volume 8.3 fL (9.4-12.3); Monocytes Percent Auto 8.1 % (2-11); Neutrophils Absolute Auto 9.5 x10*3/uL (2.0-8.3); Neutrophils Percent Auto 77.9 % (45-73); Platelet Count 282 X10*3/uL (160-400); Red Blood Count 3.65 X10*6/uL (4.20-5.50); Red Cell Distribution Width 13.6 % (11.0-16.0); White Blood Count 12.1 X10*3/uL (4.8-10.8)
[2024-10-17 13:56] LABS: Prothrombin Time 11.3 SEC (10.9-12.4)
[2024-10-17 14:20] LABS: Alanine Aminotransferase 31 U/L (0-31); Albumin Level 3.8 g/dL (3.5-5.0); Alkaline Phosphatase 67 U/L (39-117); Anion Gap 13 (12-20); Aspartate Amino Transferase 36 U/L (5-31); Bilirubin Direct 0.1 mg/dL (0.0-0.5); Bilirubin Total 0.3 mg/dL (0.0-1.0); Blood Urea Nitrogen 33 mg/dL (9-16); Calcium 9.2 mg/dL (8.4-10.2); Carbon Dioxide 24 mmol/L (22-29); Chloride 107 mmol/L (96-108); Creatinine Clr Calc Pharmacy 32.7; Estimated Glomerular Filt Rate 36; Glucose Random 113 mg/dL (60-115); Magnesium 2.3 mg/dL (1.6-2.6); Sodium 139 mmol/L (135-145); Total Protein 7.4 g/dL (6.5-8.0); Troponin-I High Sensitivity < 2.7 ng/L (<3.5-17.0)
[2024-10-17 14:33] LABS: Influenza A PCR NEGATIVE (Negative); Influenza B PCR NEGATIVE (Negative); Resp Syncy Virus RNA Qual PCR NEGATIVE (Negative); SARS COV2 PCR INHOUSE NEGATIVE (Negative)
[2024-10-17] MEDS: Acetaminophen 325 MG TABLET 650 MG PO (16:18)
[2024-10-17] MEDS: hydrOXYzine HCL 50 MG TABLET PO (16:18)
[2024-10-17 16:21] VITALS: BP 120/48; PULSE 84; RESP 16; TEMP 37.1; O2SAT 95
[2024-10-17 17:18] VITALS: BP 120/48; PULSE 84; RESP 16; TEMP 37.1; O2SAT 95
[2024-10-17 17:20] VITALS: BP 120/48; PULSE 84; RESP 16; TEMP 37.1; O2SAT 95
== END 2024-10-17 17:20 | disposition left against medical advice (07) ==
PROVIDERS: Nurse Practitioner Family; Emergency Provider Emergency Medicine
DX: R05.1 Acute cough (principal); R42 Dizziness and giddiness; R51.9 Headache, unspecified; R11.2 Nausea with vomiting, unspecified; R07.89 Other chest pain; I49.8 Other specified cardiac arrhythmias; Z03.818 Encounter for observation for suspected exposure to other biological agents ruled out; Z79.899 Other long term (current) drug therapy
CPT/HCPCS: 0241U; 36415; 71046; 80048; 80076; 83735; 84484; 85025; 85610; 93005; 99284

== ENCOUNTER 2024-10-18 02:24 | Emergency (ER) | payer OTHER, SELFPAY ==
[2024-10-18 02:31] VITALS: BP 132/70
[2024-10-18 02:36] VITALS: BP 130/72; PULSE 72; RESP 16; TEMP 36.8; O2SAT 96; BMI 32.4
--- NOTE | 2024-10-18 03:11 | ED_ITS ---
HPI - General Adult General Chief complaint: General Medical Stated complaint: anxiety Time Seen by Provider: 10/18/24 03:11 Source: patient Mode of arrival: EMS Limitations: no limitations History of Present Illness ED Provider: HPI narrative: Patient's history of hypertension on amlodipine anxiety been here multiple times comes here as she does not have any medication for today a new prescription will be filled on Friday she supposed to see PCP today at 08:00 o'clock patient's got worried as when she checked her blood pressure at home it was 180s on arrival it is 130/72 Related Data Home Medications ?Medication ?Instructions ?Recorded ?Confirmed mirtazapine 45 mg tablet 45 mg PO BEDTIME 08/09/20 09/29/24 omeprazole 20 mg tablet,delayed 20 mg PO DAILY@0630 08/09/20 09/29/24 release aspirin 81 mg tablet,delayed 81 mg PO QAM 01/28/24 09/29/24 release bisacodyl 5 mg tablet,delayed 5 mg PO DAILY PRN constipation 01/28/24 09/29/24 release diphenhydramine HCl 25 mg tablet 25 mg PO BEDTIME PRN itch 01/28/24 09/29/24 (Lou-Dryl) ferrous sulfate 325 mg (65 mg 325 mg PO DAILY 01/28/24 09/29/24 iron) tablet (FeroSul) melatonin 10 mg tablet,extended 10 mg PO BEDTIME PRN Insomnia 01/28/24 09/29/24 release multivitamin 1 tab PO QAM 01/28/24 09/29/24 rosuvastatin 20 mg tablet 20 mg PO BEDTIME 01/28/24 09/29/24 trazodone 50 mg tablet 50 mg PO BEDTIME 01/28/24 09/29/24 amlodipine 10 mg tablet 10 mg PO DAILY 02/09/24 09/29/24 acetaminophen 500 mg tablet 500 mg PO Q8H PRN pain 08/09/24 09/29/24 ipratropium bromide 21 mcg (0.03 2 spray intranasal BID 08/09/24 09/29/24 %) nasal spray zolpidem 5 mg tablet 5 mg PO BEDTIME PRN Insomnia 08/09/24 09/29/24 cholecalciferol (vitamin D3) 25 25 mcg PO DAILY 08/20/24 09/29/24 mcg (1,000 unit) tablet meclizine 25 mg tablet 25 mg PO DAILY PRN 09/29/24 09/29/24 Previous Rx's ?Medication ?Instructions ?Recorded metoprolol succinate 50 mg 50 mg PO DAILY #90 tabs 09/28/20 tablet,extended release 24 hr fluticasone propionate 50 2 spray intranasal DAILY #16 grams 09/16/23 mcg/actuation nasal spray,suspension (Flonase Allergy Relief) ondansetron 4 mg disintegrating 4 mg PO Q6H PRN nausea and 04/28/24 tablet vomiting #10 tabs hydroxyzine HCl 25 mg tablet 25 mg PO TID PRN anxiety #6 tabs 08/07/24 clonazepam 0.5 mg tablet 0.5 mg PO TID #180 tabs 08/10/24 gabapentin 100 mg capsule 100 mg PO TID #180 caps 08/10/24 valsartan 160 mg tablet 160 mg PO DAILY #90 tabs 08/20/24 hydroxyzine HCl 25 mg tablet 25 mg PO TID PRN anxiety #20 tabs 09/09/24 miconazole nitrate 2 % vaginal 1 appful vaginal BEDTIME 7 days 10/09/24 cream (Monistat 7) #45 grams nitrofurantoin 100 mg PO Q12H 3 days #6 caps 10/09/24 monohydrate/macrocrystals 100 mg capsule (Macrobid) Allergies Allergy/AdvReac Type Severity Reaction Status Date / Time penicillin G [Penicillin G] Allergy Severe ITCHY/RASH Verified 10/18/24 02:37 Sulfa (Sulfonamide Allergy Severe ITCHY,RASH, Verified 10/18/24 02:37 Antibiotics) rash [Sulfa (Sulfonamides)] trimethoprim [From Bactrim] Allergy Severe HIVES Verified 10/18/24 02:37 Penicillins Allergy Intermediate Hives Verified 10/18/24 02:37 sulfamethoxazole Allergy Mild Hives Verified 10/18/24 02:37 [From Bactrim] Review of Systems Review of Systems: Yes all other systems are reviewed and are negative PMFSH Past Medical History 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) Unable to assess alcohol history related to: Unknown Alcohol intake: never Patient Tobacco Use Status: Never used Tobacco Smoked in Last 30 Days: No Use of substances other than those prescribed or required for medical reasons: No Advance Directives: Yes Advance Directives on File: Yes Advance Directives Date on File: 01/28/24 Do you have a plan to hurt others: No Plan service: No Physical Exam ED Vital Signs: Vital Signs - 24 hr 10/18/24 02:36 10/18/24 03:51 Temperature 98.2 F 98.2 F Pulse Rate 72 72 Respiratory Rate 16 16 Blood Pressure 130/72 130/72 Pulse Oximetry 96 96 Oxygen Delivery Method Room Air Room Air BMI result Body Mass Index 32.4 Appearance: Alert. Oriented X3. No acute distress. Anxious Eyes: PERRLA, No Nystagmus ENT: Pharynx normal. Oral Mucosa moist Neck: Normal inspection. Neck supple. CVS: Normal heart rate and rhythm. Pulses normal. Respiratory: No respiratory distress. Equal air entry bilateral, no wheezing/rales/rhonchi Abdomen: Soft and nontender. Bowel sounds are present, no mass palpable, no CVA tenderness Skin: Skin warm and dry. Normal skin color. Normal skin turgor. Extremities: No lower extremity edema. No calf tenderness Neuro: Oriented X 3. No motor deficit. Medical Decision Making Medical Decision Making MDM Narrative: Patient's anxiety with history of hypertension blood 130/72 she going to see her PCP in the morning likely transient patient was from anxiety Discharge Plan Discharge Clinical Impression: Generalized anxiety disorder with panic attacks Patient Disposition: Home, Self-Care Instructions: Generalized Anxiety Disorder (ED) Additional Instructions: Continue take your medications and follow up with your PCP Prescriptions: No Action metoprolol succinate 50 mg tablet extended release 24 hr 50 mg PO DAILY Qty: 90 2RF mirtazapine 45 mg Tablet 45 mg PO BEDTIME omeprazole 20 mg Tablet,Delayed Release (Dr/Ec) 20 mg PO DAILY@0630 fluticasone propionate [Flonase Allergy Relief] 50 mcg/actuation spray,suspension 2 spray intranasal DAILY Qty: 16 0RF Rx Instructions: administer into each nostril hydroxyzine HCl 25 mg tablet 25 mg PO TID PRN (Reason: anxiety) Qty: 6 0RF hydroxyzine HCl 25 mg tablet 25 mg PO TID PRN (Reason: anxiety) Qty: 20 0RF trazodone 50 mg tablet 50 mg PO BEDTIME ferrous sulfate [FeroSul] 325 mg (65 mg iron) tablet 325 mg PO DAILY diphenhydramine HCl [Lou-Dryl] 25 mg tablet 25 mg PO BEDTIME PRN (Reason: itch) bisacodyl 5 mg tablet,delayed release (DR/EC) 5 mg PO DAILY PRN (Reason: constipation) rosuvastatin 20 mg tablet 20 mg PO BEDTIME aspirin 81 mg tablet,delayed release (DR/EC) 81 mg PO QAM multivitamin Tablet 1 tab PO QAM melatonin 10 mg tablet extended release 10 mg PO BEDTIME PRN (Reason: Insomnia) cholecalciferol (vitamin D3) 25 mcg (1,000 unit) tablet 25 mcg PO DAILY ondansetron 4 mg tablet,disintegrating 4 mg PO Q6H PRN (Reason: nausea and vomiting) Qty: 10 0RF acetaminophen 500 mg tablet 500 mg PO Q8H PRN (Reason: pain) zolpidem 5 mg tablet 5 mg PO BEDTIME PRN (Reason: Insomnia) ipratropium bromide 21 mcg (0.03 %) spray,non-aerosol 2 spray intranasal BID clonazepam 0.5 mg Tablet 0.5 mg PO TID Qty: 180 0RF gabapentin 100 mg Capsule 100 mg PO TID Qty: 180 0RF nitrofurantoin monohyd/m-cryst [Macrobid] 100 mg capsule 100 mg PO Q12H 3 Days Qty: 6 0RF Rx Instructions: must administer with a meal/food miconazole nitrate [Monistat 7] 2 % cream 1 appful vaginal BEDTIME 7 Days Qty: 45 0RF valsartan 160 mg tablet 160 mg PO DAILY Qty: 90 1RF amlodipine 10 mg tablet 10 mg PO DAILY meclizine 25 mg tablet 25 mg PO DAILY PRN Interventions: ED Discharge Assessment Last Done: 10/18/24 03:51 Discharge Date/Time: 10/18/24 03:51 Print Language: Uzbek
[2024-10-18 03:51] VITALS: BP 130/72; PULSE 72; RESP 16; TEMP 36.8; O2SAT 96
== END 2024-10-18 03:51 | disposition home or self-care (01) ==
PROVIDERS: Emergency Provider Internal Medicine
DX: F41.0 Panic disorder [episodic paroxysmal anxiety] (principal); Z79.899 Other long term (current) drug therapy
CPT/HCPCS: 99283; 99284

== ENCOUNTER 2024-10-18 20:59 | Emergency (ER) | payer OTHER, SELFPAY ==
[2024-10-18 21:08] VITALS: BP 125/62; BP 150/70; PULSE 89; PULSE 90; RESP 20; TEMP 36.7; O2SAT 98; O2SAT 99; BMI 28.0
== END 2024-10-19 02:22 | disposition left against medical advice (07) ==
PROVIDERS: Emergency Provider Emergency Medicine Emergency Medical Services
DX: I10 Essential (primary) hypertension (principal); Z53.21 Procedure and treatment not carried out due to patient leaving prior to being seen by health care provider
CPT/HCPCS: 99281

== ENCOUNTER 2024-10-23 20:28 | Emergency (ER) | payer OTHER, SELFPAY ==
[2024-10-23 20:37] VITALS: BP 144/78; PULSE 103; O2SAT 99
[2024-10-23 20:41] VITALS: BP 128/69; PULSE 77; RESP 16; TEMP 37.1; O2SAT 96; BMI 28.0
--- NOTE | 2024-10-23 20:46 | ED.GENADULT ---
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 Henriquez HPI narrative: 79-year-old female came in by ambulance for evaluation of nausea, Sore throat, patient otherwise has no other complaints, no abdominal pain, no vomiting, had a normal bowel movement earlier today, no sick contacts, no exposure to bad food or antibiotic. Patient takes Ativan daily she forgot her bottle at her daughter's house and has not taking her Ativan for the last 2- 3 days and feels nauseous. Related Data Home Medications ?Medication ?Instructions ?Recorded ?Confirmed mirtazapine 45 mg tablet 45 mg PO BEDTIME 08/09/20 09/29/24 omeprazole 20 mg tablet,delayed 20 mg PO DAILY@0630 08/09/20 09/29/24 release aspirin 81 mg tablet,delayed 81 mg PO QAM 01/28/24 09/29/24 release bisacodyl 5 mg tablet,delayed 5 mg PO DAILY PRN constipation 01/28/24 09/29/24 release diphenhydramine HCl 25 mg tablet 25 mg PO BEDTIME PRN itch 01/28/24 09/29/24 (Lou-Dryl) ferrous sulfate 325 mg (65 mg 325 mg PO DAILY 01/28/24 09/29/24 iron) tablet (FeroSul) melatonin 10 mg tablet,extended 10 mg PO BEDTIME PRN Insomnia 01/28/24 09/29/24 release multivitamin 1 tab PO QAM 01/28/24 09/29/24 rosuvastatin 20 mg tablet 20 mg PO BEDTIME 01/28/24 09/29/24 trazodone 50 mg tablet 50 mg PO BEDTIME 01/28/24 09/29/24 amlodipine 10 mg tablet 10 mg PO DAILY 02/09/24 09/29/24 acetaminophen 500 mg tablet 500 mg PO Q8H PRN pain 08/09/24 09/29/24 ipratropium bromide 21 mcg (0.03 2 spray intranasal BID 08/09/24 09/29/24 %) nasal spray zolpidem 5 mg tablet 5 mg PO BEDTIME PRN Insomnia 08/09/24 09/29/24 cholecalciferol (vitamin D3) 25 25 mcg PO DAILY 08/20/24 09/29/24 mcg (1,000 unit) tablet meclizine 25 mg tablet 25 mg PO DAILY PRN 09/29/24 09/29/24 Previous Rx's ?Medication ?Instructions ?Recorded metoprolol succinate 50 mg 50 mg PO DAILY #90 tabs 09/28/20 tablet,extended release 24 hr fluticasone propionate 50 2 spray intranasal DAILY #16 grams 09/16/23 mcg/actuation nasal spray,suspension (Flonase Allergy Relief) ondansetron 4 mg disintegrating 4 mg PO Q6H PRN nausea and 04/28/24 tablet vomiting #10 tabs hydroxyzine HCl 25 mg tablet 25 mg PO TID PRN anxiety #6 tabs 08/07/24 clonazepam 0.5 mg tablet 0.5 mg PO TID #180 tabs 08/10/24 gabapentin 100 mg capsule 100 mg PO TID #180 caps 08/10/24 valsartan 160 mg tablet 160 mg PO DAILY #90 tabs 08/20/24 hydroxyzine HCl 25 mg tablet 25 mg PO TID PRN anxiety #20 tabs 09/09/24 miconazole nitrate 2 % vaginal 1 appful vaginal BEDTIME 7 days 10/09/24 cream (Monistat 7) #45 grams nitrofurantoin 100 mg PO Q12H 3 days #6 caps 10/09/24 monohydrate/macrocrystals 100 mg capsule (Macrobid) Allergies Allergy/AdvReac Type Severity Reaction Status Date / Time penicillin G [Penicillin G] Allergy Severe ITCHY/RASH Verified 10/23/24 20:49 Sulfa (Sulfonamide Allergy Severe ITCHY,RASH, Verified 10/23/24 20:49 Antibiotics) rash [Sulfa (Sulfonamides)] trimethoprim [From Bactrim] Allergy Severe HIVES Verified 10/23/24 20:49 Penicillins Allergy Intermediate Hives Verified 10/23/24 20:49 sulfamethoxazole Allergy Mild Hives Verified 10/23/24 20:49 [From Bactrim] Review of Systems Review of Systems: All other systems are reviewed and are negative Constitutional: Reports as per HPI and Reports no additional constitutional complaints Eyes: Reports as per HPI and Reports no additional eye complaints Reports system reviewed and no additional complaints, except as documented Cardiovascular: Reports as per HPI and Reports no additional cardiovascular complaints Respiratory: Reports as per HPI and Reports no additional respiratory complaints Gastrointestinal: Reports as per HPI and Reports no additional gastrointestinal complaints Genitourinary: Reports no additional female genitourinary complaints Musculoskeletal: Reports no additional musculoskeletal complaints Skin/Breast: Reports system reviewed and no additional complaints, except as docu Psychiatric: Reports no additional psychiatric complaints Endocrine: Reports no additional endocrine complaints Hematologic/Lymphatic: Reports no additional hematologic/lymphatic complaints Allergic/Immunologic: Reports no additional allergic/immunologic complaints Reports system reviewed and no additional complaints, except as documented and Reports Abnormal speech present [facility] Past Medical History 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) Unable to assess alcohol history related to: Unknown Alcohol intake: never Patient Tobacco Use Status: Never used Tobacco Smoked in Last 30 Days: No Use of substances other than those prescribed or required for medical reasons: No Advance Directives: Yes Advance Directives on File: Yes Advance Directives Date on File: 01/28/24 service: No Physical Exam ED Vital Signs: Vital Signs - 24 hr 10/23/24 20:41 10/23/24 21:51 Temperature 98.8 F 98.7 F Pulse Rate 77 72 Respiratory Rate 16 18 Blood Pressure 128/69 117/69 Pulse Oximetry 96 96 Oxygen Delivery Method Room Air Room Air BMI result Body Mass Index 28.0 Vital signs have been reviewed and appear to be correct. Blood pressure elevated. Heart rate normal. Respiratory rate normal. Temperature normal. Oxygen saturation normal. Appearance: Alert. Oriented X3. No acute distress. Head: Normal external exam. Normocephalic. Atraumatic. No Gomes signs noted. No raccoon eyes noted Eyes: PERRLA. EOMI. Conjunctiva and sclera normal. Eyelids normal. ENT: TM's Normal. Pharynx normal. Uvula midline. Moist mucous membranes. No trismus noted. No drooling noted. No muffled voice noted. Neck: Normal inspection. Neck supple. FROM. No adenopathy. Thyroid Normal. No meningeal signs. No neck mass noted. CVS: Normal heart rate and rhythm. Heart sound normal. No murmurs noted. Pulses normal throughout. Respiratory: No respiratory distress. Painless inspiration. Breath sounds normal. No wheezes/rales/rhonchi noted. Chest nontender. No accessory muscle usage noted or decreased air movement noted. Abdomen: Soft and nontender. Bowel sounds normal in all 4 quadrants. No distention noted. No organomegaly noted. No visible injury noted. Back: No CVA tenderness. Full range of motion noted. Skin: Skin warm and dry. Normal skin color. Normal skin turgor. No rashes/lesions/lacerations noted. Extremities: No lower extremity edema. Extremities exhibit normal range of motion. Extremities nontender. Neuro: Oriented X 3. Cranial nerve exam: II-XII are grossly intact No motor deficit. No sensory deficit. Reflexes normal. Course Course Course Narrative: This is an RME: Additional HPI, ROS, PE not included below will be deferred to primary provider. RME assessment and note performed by: Alyce Celeste PA-C This is a [id number]-female, with a hx of htn, PVC, PAC, SCT, HTN, vertigo, who presents to the ER with nausea. She denies any current pain. Reports cough. Plan: Labs, UA, EKG Reevaluation(s) Reevaluation #1: 79-year-old female with history of anxiety on daily Ativan did not take her Ativan for the past few days go she forgot her medication at her daughter's house. Patient appear anxious, complaining of nausea, no abdominal pain, no chest pain, no shortness of breath. No SI, no HI, no hallucination. Time: 23:20 Medical Decision Making Differential Diagnosis Differential Diagnoses: The differential diagnosis associated with the presentation includes ( Dehydration, electrolyte derangement, severe anemia, anxiety, ACS, dysrhythmia.) Admission/Observation Consideration of admission/observation: Escalation of care including admission/observation considered Lab Data MDM Lab Attestation statement: I reviewed the patient's lab results. 10/23/24 21:07 10/23/24 21:07 Labs: Lab Results 10/23/24 Range/Units 21:07 WBC 7.9 (4.8-10.8) X10*3/uL RBC 3.72 L (4.20-5.50) X10*6/uL Hgb 10.7 L (12.0-16.0) g/dl Hct 31.8 L (37.0-47.0) % MCV 85.5 (80.0-98.0) fL MCH 28.8 (27.0-33.0) pg MCHC 33.6 (31.0-35.0) g/dl RDW 13.4 (11.0-16.0) % Plt Count 342 (160-400) X10*3/uL MPV 8.2 L (9.4-12.3) fL Immature Gran % (Auto) 2.8 H (0.0-0.4) % Neut % (Auto) 51.3 (45-73) % Lymph % (Auto) 30.2 (20-40) % [place] % (Auto) 8.7 (2-11) % Eos % (Auto) 6.1 H (0-4) % Baso % (Auto) 0.9 (0-2) % Lymph # (Auto) 2.4 (1.2-4.9) X10*3/uL [place] # (Auto) 0.7 (0.1-1.2) X10*3/uL Eos # (Auto) 0.5 H (0.0-0.4) X10*3/uL Baso # (Auto) 0.1 (0.0-0.2) X10*3/uL Abs Immat Gran (auto) 0.22 H (0.00-0.03) X10*3/uL Absolute Neuts (auto) 4.1 (2.0-8.3) x10*3/uL Absolute Nucleated RBC 0.000 (0.0-0.012) X10*3/uL Nucleated RBC % (auto) 0.0 (0.0-0.2) /100WBC Sodium 136 (135-145) mmol/L Potassium 4.6 (3.3-5.1) mmol/L Chloride 103 (96-108) mmol/L Carbon Dioxide 25 (22-29) mmol/L Anion Gap 13 (12-20) BUN 21 H (9-16) mg/dL Creatinine 1.14 (0.5-1.4) mg/dL Estim Creat Clear Calc 43.8 Estimated GFR 46 Random Glucose 105 (60-115) mg/dL Calcium 8.5 D (8.4-10.2) mg/dL Total Bilirubin 0.2 (0.0-1.0) mg/dL Direct Bilirubin < 0.2 (0.0-0.5) mg/dL AST 28 (5-31) U/L ALT 26 (0-31) U/L Alkaline Phosphatase 66 (39-117) U/L Troponin I High Sens < 2.7 (<3.5-17.0) ng/L Total Protein 7.8 (6.5-8.0) g/dL Albumin 4.0 (3.5-5.0) g/dL Lipase 27 (8-78) U/L Influenza Type A (PCR) NEGATIVE (Negative) Influenza Type B (PCR) NEGATIVE (Negative) RSV RNA Qual (PCR) NEGATIVE (Negative) SARS-CoV-2 RNA (RT-PCR) NEGATIVE (Negative) Chronic Conditions Patient?s care impacted by: Other ( Anxiety, chronic benzo use.) Discharge Plan Discharge Clinical Impression: Generalized anxiety disorder with panic attacks Patient Disposition: Home, Self-Care Instructions: Generalized Anxiety Disorder (ED) Prescriptions: No Action metoprolol succinate 50 mg tablet extended release 24 hr 50 mg PO DAILY Qty: 90 2RF mirtazapine 45 mg Tablet 45 mg PO BEDTIME omeprazole 20 mg Tablet,Delayed Release (Dr/Ec) 20 mg PO DAILY@0630 fluticasone propionate [Flonase Allergy Relief] 50 mcg/actuation spray,suspension 2 spray intranasal DAILY Qty: 16 0RF Rx Instructions: administer into each nostril hydroxyzine HCl 25 mg tablet 25 mg PO TID PRN (Reason: anxiety) Qty: 6 0RF hydroxyzine HCl 25 mg tablet 25 mg PO TID PRN (Reason: anxiety) Qty: 20 0RF trazodone 50 mg tablet 50 mg PO BEDTIME ferrous sulfate [FeroSul] 325 mg (65 mg iron) tablet 325 mg PO DAILY diphenhydramine HCl [Lou-Dryl] 25 mg tablet 25 mg PO BEDTIME PRN (Reason: itch) bisacodyl 5 mg tablet,delayed release (DR/EC) 5 mg PO DAILY PRN (Reason: constipation) rosuvastatin 20 mg tablet 20 mg PO BEDTIME aspirin 81 mg tablet,delayed release (DR/EC) 81 mg PO QAM multivitamin Tablet 1 tab PO QAM melatonin 10 mg tablet extended release 10 mg PO BEDTIME PRN (Reason: Insomnia) cholecalciferol (vitamin D3) 25 mcg (1,000 unit) tablet 25 mcg PO DAILY ondansetron 4 mg tablet,disintegrating 4 mg PO Q6H PRN (Reason: nausea and vomiting) Qty: 10 0RF acetaminophen 500 mg tablet 500 mg PO Q8H PRN (Reason: pain) zolpidem 5 mg tablet 5 mg PO BEDTIME PRN (Reason: Insomnia) ipratropium bromide 21 mcg (0.03 %) spray,non-aerosol 2 spray intranasal BID clonazepam 0.5 mg Tablet 0.5 mg PO TID Qty: 180 0RF gabapentin 100 mg Capsule 100 mg PO TID Qty: 180 0RF nitrofurantoin monohyd/m-cryst [Macrobid] 100 mg capsule 100 mg PO Q12H 3 Days Qty: 6 0RF Rx Instructions: must administer with a meal/food miconazole nitrate [Monistat 7] 2 % cream 1 appful vaginal BEDTIME 7 Days Qty: 45 0RF valsartan 160 mg tablet 160 mg PO DAILY Qty: 90 1RF amlodipine 10 mg tablet 10 mg PO DAILY meclizine 25 mg tablet 25 mg PO DAILY PRN Print Language: [place]
--- NOTE | 2024-10-23 20:47 | ECG_ITS ---
Test Reason : nausea Blood Pressure : / mmHG Vent. Rate : 075 BPM Atrial Rate : 075 BPM P-R Int : 186 ms QRS Dur : 104 ms QT Int : 394 ms P-R-T Axes : 040 -26 012 degrees QTc Int : 439 ms Normal sinus rhythm with sinus arrhythmia Moderate voltage criteria for LVH, may be normal variant ( R in aVL , Maycol product ) Borderline ECG When compared with ECG of 17-OCT-2024 13:00, No significant change was found Referred By: Alyce Celeste Electronically Signed By:KATRINA PARSONS MD
--- NOTE | 2024-10-23 21:07 | MHC.EDTECH ---
Patient brought to triage area,EKG taken per order and signed by provider,labs,sars/flu/rsv obtained and sent to lab,patient attempted to give a urine sample,pt unable to give at this time.
[2024-10-23 21:15] LABS: MANUAL DIFF FLAG NO
[2024-10-23 21:32] LABS: Alanine Aminotransferase 26 U/L (0-31); Alkaline Phosphatase 66 U/L (39-117); Anion Gap 13 (12-20); Aspartate Amino Transferase 28 U/L (5-31); Bilirubin Direct < 0.2 mg/dL (0.0-0.5); Bilirubin Total 0.2 mg/dL (0.0-1.0); Blood Urea Nitrogen 21 mg/dL (9-16); Calcium 8.5 mg/dL (8.4-10.2); Carbon Dioxide 25 mmol/L (22-29); Chloride 103 mmol/L (96-108); Creatinine Clr Calc Pharmacy 43.8; Estimated Glomerular Filt Rate 46; Glucose Random 105 mg/dL (60-115); Lipase 27 U/L (8-78); Potassium 4.6 mmol/L (3.3-5.1); Sodium 136 mmol/L (135-145); Total Protein 7.8 g/dL (6.5-8.0)
[2024-10-23 21:36] LABS: Basophils Absolute Auto 0.1 X10*3/uL (0.0-0.2); Basophils Percent Auto 0.9 % (0-2); Eosinophils Absolute Auto 0.5 X10*3/uL (0.0-0.4); Eosinophils Percent Auto 6.1 % (0-4); Hematocrit 31.8 % (37.0-47.0); Hemoglobin 10.7 g/dl (12.0-16.0); Imm Gran Abs Auto 0.22 X10*3/uL (0.00-0.03); Imm Gran Pct Auto 2.8 % (0.0-0.4); Lymphocytes Absolute Auto 2.4 X10*3/uL (1.2-4.9); Lymphocytes Percent Auto 30.2 % (20-40); Mean Corpuscular HGB Conc 33.6 g/dl (31.0-35.0); Mean Corpuscular Hemoglobin 28.8 pg (27.0-33.0); Mean Corpuscular Volume 85.5 fL (80.0-98.0); Mean Platelet Volume 8.2 fL (9.4-12.3); Monocytes Absolute Auto 0.7 X10*3/uL (0.1-1.2); Monocytes Percent Auto 8.7 % (2-11); Neutrophils Absolute Auto 4.1 x10*3/uL (2.0-8.3); Neutrophils Percent Auto 51.3 % (45-73); Platelet Count 342 X10*3/uL (160-400); Red Blood Count 3.72 X10*6/uL (4.20-5.50); Red Cell Distribution Width 13.4 % (11.0-16.0); White Blood Count 7.9 X10*3/uL (4.8-10.8)
[2024-10-23 21:42] LABS: Troponin-I High Sensitivity < 2.7 ng/L (<3.5-17.0)
[2024-10-23 21:51] VITALS: BP 117/69; PULSE 72; RESP 18; TEMP 37.1; O2SAT 96
[2024-10-23 21:52] LABS: Influenza A PCR NEGATIVE (Negative); Influenza B PCR NEGATIVE (Negative); Resp Syncy Virus RNA Qual PCR NEGATIVE (Negative); SARS COV2 PCR INHOUSE NEGATIVE (Negative)
--- NOTE | 2024-10-23 22:28 | PC.NURSE ---
2x attempt for urine sample and pt says she does not need to go
--- NOTE | 2024-10-23 22:36 | PC.NURSE ---
pt states she vomited in the trash but no vomit was seen in the trash. There is a small food bolus that was spit out. No liquid.
[2024-10-23] MEDS: LORazepam 0.5 MG TABLET PO (23:31)
[2024-10-23 23:55] VITALS: BP 117/69; PULSE 72; RESP 18; TEMP 37.1; O2SAT 96
== END 2024-10-23 23:56 | disposition home or self-care (01) ==
PROVIDERS: Physician Assistant Medical; Emergency Provider Emergency Medicine
DX: F41.1 Generalized anxiety disorder (principal); F41.0 Panic disorder [episodic paroxysmal anxiety]; R11.0 Nausea; J02.9 Acute pharyngitis, unspecified; Z03.818 Encounter for observation for suspected exposure to other biological agents ruled out; Z79.899 Other long term (current) drug therapy
CPT/HCPCS: 0241U; 80048; 80076; 83690; 84484; 85025; 93005; 99283; 99284

== ENCOUNTER → 2024-10-23 20:47 | Outpatient (BNV) | payer OTHER, SELFPAY | PROVIDERS: Emergency Provider Emergency Medicine; Visit Provider Internal Medicine Cardiovascular Disease | DX: R11.0 Nausea (principal) | CPT/HCPCS: 93010 ==

== ENCOUNTER 2024-10-24 23:07 | Emergency (ER) | payer OTHER, SELFPAY ==
[2024-10-24 23:31] VITALS: BP 132/90; BP 133/64; PULSE 86; RESP 20; TEMP 37.1; O2SAT 96; O2SAT 98; BMI 28.0
--- NOTE | 2024-10-25 00:16 | ED_ITS ---
HPI - General Adult General Chief complaint: General Medical Stated complaint: claims hypertension says she needs bp med Time Seen by Provider: 10/25/24 00:10 Source: patient Mode of arrival: EMS Limitations: no limitations History of Present Illness ED Provider: Dr. Marta Briscoe HPI narrative: Patient comes to the emergency room complaining of high blood pressure. Patient states that it was 180/91 this afternoon. Patient states that she ran out of her anxiety medication and is requesting something to help her calm down and to be able to go home. Patient denies SI or HI. Patient denies any chest pain or shortness of breath. Related Data Home Medications ?Medication ?Instructions ?Recorded ?Confirmed mirtazapine 45 mg tablet 45 mg PO BEDTIME 08/09/20 09/29/24 omeprazole 20 mg tablet,delayed 20 mg PO DAILY@0630 08/09/20 09/29/24 release aspirin 81 mg tablet,delayed 81 mg PO QAM 01/28/24 09/29/24 release bisacodyl 5 mg tablet,delayed 5 mg PO DAILY PRN constipation 01/28/24 09/29/24 release diphenhydramine HCl 25 mg tablet 25 mg PO BEDTIME PRN itch 01/28/24 09/29/24 (Lou-Dryl) ferrous sulfate 325 mg (65 mg 325 mg PO DAILY 01/28/24 09/29/24 iron) tablet (FeroSul) melatonin 10 mg tablet,extended 10 mg PO BEDTIME PRN Insomnia 01/28/24 09/29/24 release multivitamin 1 tab PO QAM 01/28/24 09/29/24 rosuvastatin 20 mg tablet 20 mg PO BEDTIME 01/28/24 09/29/24 trazodone 50 mg tablet 50 mg PO BEDTIME 01/28/24 09/29/24 amlodipine 10 mg tablet 10 mg PO DAILY 02/09/24 09/29/24 acetaminophen 500 mg tablet 500 mg PO Q8H PRN pain 08/09/24 09/29/24 ipratropium bromide 21 mcg (0.03 2 spray intranasal BID 08/09/24 09/29/24 %) nasal spray zolpidem 5 mg tablet 5 mg PO BEDTIME PRN Insomnia 08/09/24 09/29/24 cholecalciferol (vitamin D3) 25 25 mcg PO DAILY 08/20/24 09/29/24 mcg (1,000 unit) tablet meclizine 25 mg tablet 25 mg PO DAILY PRN 09/29/24 09/29/24 Previous Rx's ?Medication ?Instructions ?Recorded metoprolol succinate 50 mg 50 mg PO DAILY #90 tabs 09/28/20 tablet,extended release 24 hr fluticasone propionate 50 2 spray intranasal DAILY #16 grams 09/16/23 mcg/actuation nasal spray,suspension (Flonase Allergy Relief) ondansetron 4 mg disintegrating 4 mg PO Q6H PRN nausea and 04/28/24 tablet vomiting #10 tabs hydroxyzine HCl 25 mg tablet 25 mg PO TID PRN anxiety #6 tabs 08/07/24 clonazepam 0.5 mg tablet 0.5 mg PO TID #180 tabs 08/10/24 gabapentin 100 mg capsule 100 mg PO TID #180 caps 08/10/24 valsartan 160 mg tablet 160 mg PO DAILY #90 tabs 08/20/24 hydroxyzine HCl 25 mg tablet 25 mg PO TID PRN anxiety #20 tabs 09/09/24 miconazole nitrate 2 % vaginal 1 appful vaginal BEDTIME 7 days 10/09/24 cream (Monistat 7) #45 grams nitrofurantoin 100 mg PO Q12H 3 days #6 caps 10/09/24 monohydrate/macrocrystals 100 mg capsule (Macrobid) Allergies Allergy/AdvReac Type Severity Reaction Status Date / Time penicillin G [Penicillin G] Allergy Severe ITCHY/RASH Verified 10/24/24 23:33 Sulfa (Sulfonamide Allergy Severe ITCHY,RASH, Verified 10/24/24 23:33 Antibiotics) rash [Sulfa (Sulfonamides)] trimethoprim [From Bactrim] Allergy Severe HIVES Verified 10/24/24 23:33 Penicillins Allergy Intermediate Hives Verified 10/24/24 23:33 sulfamethoxazole Allergy Mild Hives Verified 10/24/24 23:33 [From Bactrim] Review of Systems Review of Systems: Constitutional : No Weight loss, No Fever, No Chills, No Night Sweats, No Fatigue, No Malaise ENT/Mouth : No Hearing loss, No Ear Pain, No Nasal Congestion, No Sinus Pain, No Hoarseness, No sore throat, No Rhinorrhea, No Swallowing Difficulty Eyes: No Eye Pain, No Swelling, No Redness, No Foreign Body, No Discharge, No Vision Changes Cardiovascular : No Chest Pain, No SOB, No Dyspnea on Exertion, No Orthopnea, No Edema, No Palpitations Respiratory : No Cough, No Sputum, No Wheezing, No Smoke Exposure, No Dyspnea Gastrointestinal : No Nausea, No Vomiting, No Diarrhea, No Constipation, No abdominal Pain, No Hematochezia, No Melena Genitourinary : no irregular bleeding, No Dysuria, No Urinary Frequency, No Hematuria, No Urinary Incontinence, No Urgency, No Flank Pain, No Urinary Flow Changes, No Hesitancy Musculoskeletal : No joint pain, No Myalgias, No Joint Swelling Skin : No Skin Lesions, No rash Neuro : No Weakness, No Numbness, No Paresthesias, No Loss of Consciousness, No Dizziness, No Headache Psych : Complaining of anxiety, No Depression, No SI/HI/AH/VH, No Social Issues, Heme/Lymph: No Bruising, No Bleeding,No Lymphadenopathy Endocrine : No Polyuria, No Polydipsia, No Temperature Intolerance [facility] Past Medical History 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 Oriented X3. No acute distress. Eyes: Pupils equal, round and reactive to light. ENT: Pharynx normal. Cerumen both ears, tympanic membranes visible, normal ear canals no erythema Neck: Normal inspection. Neck supple. No lymph nodes noted. No crepitus CVS: Normal heart rate and rhythm. Pulses normal. Normal S1 and S2 Respiratory: No respiratory distress. Breath sounds normal. No Wheezing. No rales Abdomen: Soft and nontender. No rigidity. No distention. Skin: Skin warm and dry. Normal skin color. Normal skin turgor. Extremities: No lower extremity edema. No Lacerations. No Rash Neuro: Oriented X 3. No motor deficit. No sensory deficit. Moving all extrem ities. No slurred speech. CN 2 through 12 grossly intact Psych: calm, cooperative, normal affect Medical Decision Making Medical Decision Making MDM Narrative: Patient's blood pressure is 133/64 Also, patient was complaining of left-sided ear pain, patient's ureter on physical exam looks normal -patient was given hydroxyzine Subsequently patient states that she is feeling much better and she is feeling ready for discharge Discharge Plan Discharge Clinical Impression: Generalized anxiety disorder with panic attacks Patient Disposition: Home, Self-Care Instructions: Anxiety (ED) Additional Instructions: Please follow-up with your primary care physician tomorrow. If you have any worsening or new symptoms, please return to the emergency room or call 911 Prescriptions: No Action metoprolol succinate 50 mg tablet extended release 24 hr 50 mg PO DAILY Qty: 90 2RF mirtazapine 45 mg Tablet 45 mg PO BEDTIME omeprazole 20 mg Tablet,Delayed Release (Dr/Ec) 20 mg PO DAILY@0630 fluticasone propionate [Flonase Allergy Relief] 50 mcg/actuation spray,suspension 2 spray intranasal DAILY Qty: 16 0RF Rx Instructions: administer into each nostril hydroxyzine HCl 25 mg tablet 25 mg PO TID PRN (Reason: anxiety) Qty: 6 0RF hydroxyzine HCl 25 mg tablet 25 mg PO TID PRN (Reason: anxiety) Qty: 20 0RF trazodone 50 mg tablet 50 mg PO BEDTIME ferrous sulfate [FeroSul] 325 mg (65 mg iron) tablet 325 mg PO DAILY diphenhydramine HCl [Lou-Dryl] 25 mg tablet 25 mg PO BEDTIME PRN (Reason: itch) bisacodyl 5 mg tablet,delayed release (DR/EC) 5 mg PO DAILY PRN (Reason: constipation) rosuvastatin 20 mg tablet 20 mg PO BEDTIME aspirin 81 mg tablet,delayed release (DR/EC) 81 mg PO QAM multivitamin Tablet 1 tab PO QAM melatonin 10 mg tablet extended release 10 mg PO BEDTIME PRN (Reason: Insomnia) cholecalciferol (vitamin D3) 25 mcg (1,000 unit) tablet 25 mcg PO DAILY ondansetron 4 mg tablet,disintegrating 4 mg PO Q6H PRN (Reason: nausea and vomiting) Qty: 10 0RF acetaminophen 500 mg tablet 500 mg PO Q8H PRN (Reason: pain) zolpidem 5 mg tablet 5 mg PO BEDTIME PRN (Reason: Insomnia) ipratropium bromide 21 mcg (0.03 %) spray,non-aerosol 2 spray intranasal BID clonazepam 0.5 mg Tablet 0.5 mg PO TID Qty: 180 0RF gabapentin 100 mg Capsule 100 mg PO TID Qty: 180 0RF nitrofurantoin monohyd/m-cryst [Macrobid] 100 mg capsule 100 mg PO Q12H 3 Days Qty: 6 0RF Rx Instructions: must administer with a meal/food miconazole nitrate [Monistat 7] 2 % cream 1 appful vaginal BEDTIME 7 Days Qty: 45 0RF valsartan 160 mg tablet 160 mg PO DAILY Qty: 90 1RF amlodipine 10 mg tablet 10 mg PO DAILY meclizine 25 mg tablet 25 mg PO DAILY PRN Print Language: [place]
[2024-10-25] MEDS: hydrOXYzine HCL 50 MG TABLET PO (00:22)
[2024-10-25 00:30] VITALS: BP 133/64; PULSE 86; RESP 20; TEMP 37.1; O2SAT 96
== END 2024-10-25 00:31 | disposition home or self-care (01) ==
PROVIDERS: Emergency Provider Emergency Medicine
DX: F41.9 Anxiety disorder, unspecified (principal); F41.0 Panic disorder [episodic paroxysmal anxiety]; Z79.899 Other long term (current) drug therapy
CPT/HCPCS: 99282; 99284

== ENCOUNTER 2024-10-25 20:08 | Emergency (ER) | payer OTHER, SELFPAY ==
--- NOTE | 2024-10-25 20:14 | ECG_ITS ---
Test Reason : HIGH BLOOD PRESSURE Blood Pressure : / mmHG Vent. Rate : 082 BPM Atrial Rate : 082 BPM P-R Int : 178 ms QRS Dur : 098 ms QT Int : 380 ms P-R-T Axes : 033 -29 010 degrees QTc Int : 443 ms Normal sinus rhythm with sinus arrhythmia Moderate voltage criteria for LVH, may be normal variant ( R in aVL , Maycol product ) Borderline ECG When compared with ECG of 23-OCT-2024 20:58, No significant change was found Referred By: Sherry Fallon Electronically Signed By:ZANDRA ENNIS
--- NOTE | 2024-10-25 20:15 | ED.GENADULT ---
HPI - General Adult General Chief complaint: General Medical Stated complaint: HIGH BP Time Seen by Provider: 10/25/24 21:48 History of Present Illness ED Provider: Ashleigh DUMONT narrative: The patient is an 79-year-old woman who was prescribed clonazepam. She receives weekly prescriptions of 21 tablets of 0.5 mg of clonazepam. The patient comes to the emergency room frequently for a variety of complaints that usually seemed to be related to her anxiety. She says that she came by ambulance today because of high blood pressure, headache, and feeling, and feeling anxious. She says that she did not have clonazepam left and therefore she could not treat herself at home and so she called an ambulance. She says that she has a new prescription for tomorrow. Related Data Home Medications ?Medication ?Instructions ?Recorded ?Confirmed mirtazapine 45 mg tablet 45 mg PO BEDTIME 08/09/20 09/29/24 omeprazole 20 mg tablet,delayed 20 mg PO DAILY@0630 08/09/20 09/29/24 release aspirin 81 mg tablet,delayed 81 mg PO QAM 01/28/24 09/29/24 release bisacodyl 5 mg tablet,delayed 5 mg PO DAILY PRN constipation 01/28/24 09/29/24 release diphenhydramine HCl 25 mg tablet 25 mg PO BEDTIME PRN itch 01/28/24 09/29/24 (Lou-Dryl) ferrous sulfate 325 mg (65 mg 325 mg PO DAILY 01/28/24 09/29/24 iron) tablet (FeroSul) melatonin 10 mg tablet,extended 10 mg PO BEDTIME PRN Insomnia 01/28/24 09/29/24 release multivitamin 1 tab PO QAM 01/28/24 09/29/24 rosuvastatin 20 mg tablet 20 mg PO BEDTIME 01/28/24 09/29/24 trazodone 50 mg tablet 50 mg PO BEDTIME 01/28/24 09/29/24 amlodipine 10 mg tablet 10 mg PO DAILY 02/09/24 09/29/24 acetaminophen 500 mg tablet 500 mg PO Q8H PRN pain 08/09/24 09/29/24 ipratropium bromide 21 mcg (0.03 2 spray intranasal BID 08/09/24 09/29/24 %) nasal spray zolpidem 5 mg tablet 5 mg PO BEDTIME PRN Insomnia 08/09/24 09/29/24 cholecalciferol (vitamin D3) 25 25 mcg PO DAILY 08/20/24 09/29/24 mcg (1,000 unit) tablet meclizine 25 mg tablet 25 mg PO DAILY PRN 09/29/24 09/29/24 Previous Rx's ?Medication ?Instructions ?Recorded metoprolol succinate 50 mg 50 mg PO DAILY #90 tabs 09/28/20 tablet,extended release 24 hr fluticasone propionate 50 2 spray intranasal DAILY #16 grams 09/16/23 mcg/actuation nasal spray,suspension (Flonase Allergy Relief) ondansetron 4 mg disintegrating 4 mg PO Q6H PRN nausea and 04/28/24 tablet vomiting #10 tabs hydroxyzine HCl 25 mg tablet 25 mg PO TID PRN anxiety #6 tabs 08/07/24 clonazepam 0.5 mg tablet 0.5 mg PO TID #180 tabs 08/10/24 gabapentin 100 mg capsule 100 mg PO TID #180 caps 08/10/24 valsartan 160 mg tablet 160 mg PO DAILY #90 tabs 08/20/24 hydroxyzine HCl 25 mg tablet 25 mg PO TID PRN anxiety #20 tabs 09/09/24 miconazole nitrate 2 % vaginal 1 appful vaginal BEDTIME 7 days 10/09/24 cream (Monistat 7) #45 grams nitrofurantoin 100 mg PO Q12H 3 days #6 caps 10/09/24 monohydrate/macrocrystals 100 mg capsule (Macrobid) Allergies Allergy/AdvReac Type Severity Reaction Status Date / Time penicillin G [Penicillin G] Allergy Severe ITCHY/RASH Verified 10/25/24 20:38 Sulfa (Sulfonamide Allergy Severe ITCHY,RASH, Verified 10/25/24 20:38 Antibiotics) rash [Sulfa (Sulfonamides)] trimethoprim [From Bactrim] Allergy Severe HIVES Verified 10/25/24 20:38 Penicillins Allergy Intermediate Hives Verified 10/25/24 20:38 sulfamethoxazole Allergy Mild Hives Verified 10/25/24 20:38 [From Bactrim] Review of Systems Review of Systems: Yes all other systems are reviewed and are negative PMFSH Past Medical History 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) Unable to assess alcohol history related to: Unknown Alcohol intake: never Patient Tobacco Use Status: Never used Tobacco Advance Directives: Yes Advance Directives on File: Yes Advance Directives Date on File: 01/28/24 Do you have a plan to hurt others: No Plan service: No Physical Exam ED Vital Signs: Vital Signs - 24 hr 10/25/24 20:25 10/25/24 21:40 10/25/24 22:14 Temperature 98.4 F 98.6 F 98.6 F Pulse Rate 80 80 80 Respiratory Rate 16 16 16 Blood Pressure 129/63 134/70 134/70 Pulse Oximetry 96 98 98 Oxygen Delivery Method Room Air Room Air Room Air BMI result Body Mass Index 31.2 Const Other: The patient is awake, alert, cooperative. She does not seem in distress. HENMT Head: Yes normal to inspection Mouth: Normal oral and palatal mucosa present and moist mucous membranes Eyes General: appearance normal, both eyes and all related structures Neck Neck: Yes no JVD Resp Effort & Inspection: normal respiratory effort Auscultation: clear to auscultation bilaterally Cardio Rate: regular rate Rhythm: regular rhythm Heart sounds: S1 normal heart sound present and S2 normal heart sound present GI Other: Abdomen is soft and nontender Skin General skin exam: no rashes or lesions noted Neuro Other: The patient is awake and alert. Cranial nerves are grossly intact. She moves her extremities normally. Gait either steady. She seems neurologically intact. Extrem Other: No peripheral edema Course Course Course Narrative: This is an RME done by SARA Fallon: Additional HPI, ROS, PE not included below will be deferred to primary provider. 79 yo f long standing hx of anxiety, ckd, htn, dementia, vertigo presents w/ concerns her pressure is high and wants to get checked. PE patient well appearing Medications Administered Discontinued Medications Generic Name Dose Route Start Last Admin Trade Name Freq PRN Reason Stop Dose Admin Acetaminophen 650 mg 10/25/24 20:48 10/25/24 21:18 Acetaminophen 325 Mg Tablet PO 10/25/24 20:49 650 mg ONCE ONE Administration Clonazepam 0.5 mg 10/25/24 22:05 10/25/24 22:12 Clonazepam 0.5 Mg Tablet PO 10/25/24 22:06 0.5 mg ONCE ONE Administration Medical Decision Making Medical Decision Making [facility] Narrative: The patient is an 79-year-old female with a history of frequent emergency room visits often related to anxiety. The patient had arrived by ambulance. The patient had initially arrived complaining of hypertension, headache, and dizziness. Subsequently she told the nurse that her symptoms had resolved while waiting in the emergency room. I saw her soon after that at which point she told me that she was feeling terribly anxious and that if she went home she would continue to feel anxious and probably call 911 again. She requested a dose of clonazepam. She seems to receive 0.5 mg tablets of clonazepam on a weekly basis, 21 tablets per day. The patient was given 0.5 mg of clonazepam orally here in the emergency department. She will be discharged to pharmacy picking tech her prescriptions in the morning. She should follow up with the regular doctor.. Lab Data 10/25/24 20:32 10/25/24 20:32 Labs: Lab Results 10/25/24 Range/Units 20:32 WBC 8.2 (4.8-10.8) X10*3/uL RBC 3.84 L (4.20-5.50) X10*6/uL Hgb 11.1 L (12.0-16.0) g/dl Hct 32.6 L (37.0-47.0) % MCV 84.9 (80.0-98.0) fL MCH 28.9 (27.0-33.0) pg MCHC 34.0 (31.0-35.0) g/dl RDW 14.0 (11.0-16.0) % Plt Count 320 (160-400) X10*3/uL MPV 8.0 L (9.4-12.3) fL Immature Gran % (Auto) 1.1 H (0.0-0.4) % Neut % (Auto) 53.7 (45-73) % Lymph % (Auto) 32.8 (20-40) % Major % (Auto) 9.4 (2-11) % Eos % (Auto) 2.0 (0-4) % Baso % (Auto) 1.0 (0-2) % Lymph # (Auto) 2.7 (1.2-4.9) X10*3/uL Major # (Auto) 0.8 (0.1-1.2) X10*3/uL Eos # (Auto) 0.2 (0.0-0.4) X10*3/uL Baso # (Auto) 0.1 (0.0-0.2) X10*3/uL Abs Immat Gran (auto) 0.09 H (0.00-0.03) X10*3/uL Absolute Neuts (auto) 4.4 (2.0-8.3) x10*3/uL Absolute Nucleated RBC 0.000 (0.0-0.012) X10*3/uL Nucleated RBC % (auto) 0.0 (0.0-0.2) /100WBC Sodium 135 (135-145) mmol/L Potassium 4.5 (3.3-5.1) mmol/L Chloride 104 (96-108) mmol/L Carbon Dioxide 25 (22-29) mmol/L Anion Gap 11 L (12-20) BUN 26 H (9-16) mg/dL Creatinine 1.03 (0.5-1.4) mg/dL Estim Creat Clear Calc 44.5 Estimated GFR 51 Random Glucose 106 (60-115) mg/dL Calcium 8.5 (8.4-10.2) mg/dL Magnesium 2.2 (1.6-2.6) mg/dL Total Bilirubin 0.3 (0.0-1.0) mg/dL AST 25 (5-31) U/L ALT 19 (0-31) U/L Alkaline Phosphatase 62 (39-117) U/L Troponin I High Sens < 2.7 (<3.5-17.0) ng/L Total Protein 7.8 (6.5-8.0) g/dL Albumin 4.0 (3.5-5.0) g/dL Discharge Plan Discharge Clinical Impression: Anxiety Patient Disposition: Home, Self-Care Additional Instructions: Please resume your regular medications when you pick them up tomorrow. Follow up soon with your regular doctor to discuss these problems further. Prescriptions: No Action metoprolol succinate 50 mg tablet extended release 24 hr 50 mg PO DAILY Qty: 90 2RF mirtazapine 45 mg Tablet 45 mg PO BEDTIME omeprazole 20 mg Tablet,Delayed Release (Dr/Ec) 20 mg PO DAILY@0630 fluticasone propionate [Flonase Allergy Relief] 50 mcg/actuation spray,suspension 2 spray intranasal DAILY Qty: 16 0RF Rx Instructions: administer into each nostril hydroxyzine HCl 25 mg tablet 25 mg PO TID PRN (Reason: anxiety) Qty: 6 0RF hydroxyzine HCl 25 mg tablet 25 mg PO TID PRN (Reason: anxiety) Qty: 20 0RF trazodone 50 mg tablet 50 mg PO BEDTIME ferrous sulfate [FeroSul] 325 mg (65 mg iron) tablet 325 mg PO DAILY diphenhydramine HCl [Lou-Dryl] 25 mg tablet 25 mg PO BEDTIME PRN (Reason: itch) bisacodyl 5 mg tablet,delayed release (DR/EC) 5 mg PO DAILY PRN (Reason: constipation) rosuvastatin 20 mg tablet 20 mg PO BEDTIME aspirin 81 mg tablet,delayed release (DR/EC) 81 mg PO QAM multivitamin Tablet 1 tab PO QAM melatonin 10 mg tablet extended release 10 mg PO BEDTIME PRN (Reason: Insomnia) cholecalciferol (vitamin D3) 25 mcg (1,000 unit) tablet 25 mcg PO DAILY ondansetron 4 mg tablet,disintegrating 4 mg PO Q6H PRN (Reason: nausea and vomiting) Qty: 10 0RF acetaminophen 500 mg tablet 500 mg PO Q8H PRN (Reason: pain) zolpidem 5 mg tablet 5 mg PO BEDTIME PRN (Reason: Insomnia) ipratropium bromide 21 mcg (0.03 %) spray,non-aerosol 2 spray intranasal BID clonazepam 0.5 mg Tablet 0.5 mg PO TID Qty: 180 0RF gabapentin 100 mg Capsule 100 mg PO TID Qty: 180 0RF nitrofurantoin monohyd/m-cryst [Macrobid] 100 mg capsule 100 mg PO Q12H 3 Days Qty: 6 0RF Rx Instructions: must administer with a meal/food miconazole nitrate [Monistat 7] 2 % cream 1 appful vaginal BEDTIME 7 Days Qty: 45 0RF valsartan 160 mg tablet 160 mg PO DAILY Qty: 90 1RF amlodipine 10 mg tablet 10 mg PO DAILY meclizine 25 mg tablet 25 mg PO DAILY PRN Referrals: Name,MD Nitin [Primary Care Provider] - (anxiety) Interventions: ED Discharge Assessment Last Done: 10/25/24 22:14 Discharge Date/Time: 10/25/24 22:15 Print Language: Guyanese
[2024-10-25 20:25] VITALS: BP 129/63; BP 140/70; PULSE 80; PULSE 95; RESP 16; TEMP 36.9; O2SAT 96; O2SAT 97; BMI 31.2
[2024-10-25 20:38] LABS: MANUAL DIFF FLAG NO
[2024-10-25 20:40] LABS: Basophils Absolute Auto 0.1 X10*3/uL (0.0-0.2); Eosinophils Absolute Auto 0.2 X10*3/uL (0.0-0.4); Hematocrit 32.6 % (37.0-47.0); Hemoglobin 11.1 g/dl (12.0-16.0); Imm Gran Abs Auto 0.09 X10*3/uL (0.00-0.03); Imm Gran Pct Auto 1.1 % (0.0-0.4); Lymphocytes Absolute Auto 2.7 X10*3/uL (1.2-4.9); Lymphocytes Percent Auto 32.8 % (20-40); Mean Corpuscular Hemoglobin 28.9 pg (27.0-33.0); Mean Corpuscular Volume 84.9 fL (80.0-98.0); Monocytes Absolute Auto 0.8 X10*3/uL (0.1-1.2); Monocytes Percent Auto 9.4 % (2-11); Neutrophils Absolute Auto 4.4 x10*3/uL (2.0-8.3); Neutrophils Percent Auto 53.7 % (45-73); Platelet Count 320 X10*3/uL (160-400); Red Blood Count 3.84 X10*6/uL (4.20-5.50); White Blood Count 8.2 X10*3/uL (4.8-10.8)
[2024-10-25 21:01] LABS: Alanine Aminotransferase 19 U/L (0-31); Alkaline Phosphatase 62 U/L (39-117); Anion Gap 11 (12-20); Aspartate Amino Transferase 25 U/L (5-31); Bilirubin Total 0.3 mg/dL (0.0-1.0); Blood Urea Nitrogen 26 mg/dL (9-16); Calcium 8.5 mg/dL (8.4-10.2); Carbon Dioxide 25 mmol/L (22-29); Chloride 104 mmol/L (96-108); Creatinine Clr Calc Pharmacy 44.5; Estimated Glomerular Filt Rate 51; Glucose Random 106 mg/dL (60-115); Magnesium 2.2 mg/dL (1.6-2.6); Potassium 4.5 mmol/L (3.3-5.1); Sodium 135 mmol/L (135-145); Total Protein 7.8 g/dL (6.5-8.0)
[2024-10-25 21:11] LABS: Troponin-I High Sensitivity < 2.7 ng/L (<3.5-17.0)
[2024-10-25] MEDS: Acetaminophen 325 MG TABLET 650 MG PO (21:18)
[2024-10-25 21:40] VITALS: BP 134/70; PULSE 80; RESP 16; TEMP 37; O2SAT 98
[2024-10-25] MEDS: clonazePAM 0.5 MG TABLET PO (22:12)
[2024-10-25 22:14] VITALS: BP 134/70; PULSE 80; RESP 16; TEMP 37; O2SAT 98
== END 2024-10-25 22:15 | disposition home or self-care (01) ==
PROVIDERS: Physician Assistant; Emergency Provider Emergency Medicine; PCP Internal Medicine Geriatric Medicine
DX: F41.1 Generalized anxiety disorder (principal); F43.0 Acute stress reaction; I49.8 Other specified cardiac arrhythmias; R94.31 Abnormal electrocardiogram [ECG] [EKG]; Z79.899 Other long term (current) drug therapy
CPT/HCPCS: 36415; 80053; 83735; 84484; 85025; 93005; 99283; 99284

== ENCOUNTER → 2024-10-25 20:14 | Outpatient (BNV) | payer OTHER, SELFPAY | PROVIDERS: Emergency Provider Emergency Medicine; PCP Internal Medicine Geriatric Medicine; Visit Provider Internal Medicine | DX: I10 Essential (primary) hypertension (principal) | CPT/HCPCS: 93010 ==

== ENCOUNTER 2024-10-26 00:52 | Emergency (ER) | payer OTHER, SELFPAY ==
--- NOTE | 2024-10-26 01:02 | ED_ITS ---
HPI - General Adult General Chief complaint: General Medical Stated complaint: Non med compliant Time Seen by Provider: 10/26/24 01:01 History of Present Illness ED Provider: Ashleigh DUMONT narrative: The patient is an 79-year-old female who has a history of multiple frequent ER visits related to anxiety. She was here hour or so before returning by ambulance with the same complaint. She has been seen earlier tonight complaining of anxiety and requesting clonazepam (she had run out of her own clonazepam). She was given 0.5 mg of clonazepam and discharged. Apparently after getting home her anxiety returned and she felt she was having a panic attack and so called 911 again and returned to the emergency room. She is again requesting something for anxiety. Related Data Home Medications ?Medication ?Instructions ?Recorded ?Confirmed mirtazapine 45 mg tablet 45 mg PO BEDTIME 08/09/20 09/29/24 omeprazole 20 mg tablet,delayed 20 mg PO DAILY@0630 08/09/20 09/29/24 release aspirin 81 mg tablet,delayed 81 mg PO QAM 01/28/24 09/29/24 release bisacodyl 5 mg tablet,delayed 5 mg PO DAILY PRN constipation 01/28/24 09/29/24 release diphenhydramine HCl 25 mg tablet 25 mg PO BEDTIME PRN itch 01/28/24 09/29/24 (Lou-Dryl) ferrous sulfate 325 mg (65 mg 325 mg PO DAILY 01/28/24 09/29/24 iron) tablet (FeroSul) melatonin 10 mg tablet,extended 10 mg PO BEDTIME PRN Insomnia 01/28/24 09/29/24 release multivitamin 1 tab PO QAM 01/28/24 09/29/24 rosuvastatin 20 mg tablet 20 mg PO BEDTIME 01/28/24 09/29/24 trazodone 50 mg tablet 50 mg PO BEDTIME 01/28/24 09/29/24 amlodipine 10 mg tablet 10 mg PO DAILY 02/09/24 09/29/24 acetaminophen 500 mg tablet 500 mg PO Q8H PRN pain 08/09/24 09/29/24 ipratropium bromide 21 mcg (0.03 2 spray intranasal BID 08/09/24 09/29/24 %) nasal spray zolpidem 5 mg tablet 5 mg PO BEDTIME PRN Insomnia 08/09/24 09/29/24 cholecalciferol (vitamin D3) 25 25 mcg PO DAILY 08/20/24 09/29/24 mcg (1,000 unit) tablet meclizine 25 mg tablet 25 mg PO DAILY PRN 09/29/24 09/29/24 Previous Rx's ?Medication ?Instructions ?Recorded metoprolol succinate 50 mg 50 mg PO DAILY #90 tabs 09/28/20 tablet,extended release 24 hr fluticasone propionate 50 2 spray intranasal DAILY #16 grams 09/16/23 mcg/actuation nasal spray,suspension (Flonase Allergy Relief) ondansetron 4 mg disintegrating 4 mg PO Q6H PRN nausea and 04/28/24 tablet vomiting #10 tabs hydroxyzine HCl 25 mg tablet 25 mg PO TID PRN anxiety #6 tabs 08/07/24 clonazepam 0.5 mg tablet 0.5 mg PO TID #180 tabs 08/10/24 gabapentin 100 mg capsule 100 mg PO TID #180 caps 08/10/24 valsartan 160 mg tablet 160 mg PO DAILY #90 tabs 08/20/24 hydroxyzine HCl 25 mg tablet 25 mg PO TID PRN anxiety #20 tabs 09/09/24 miconazole nitrate 2 % vaginal 1 appful vaginal BEDTIME 7 days 10/09/24 cream (Monistat 7) #45 grams nitrofurantoin 100 mg PO Q12H 3 days #6 caps 10/09/24 monohydrate/macrocrystals 100 mg capsule (Macrobid) Allergies Allergy/AdvReac Type Severity Reaction Status Date / Time penicillin G [Penicillin G] Allergy Severe ITCHY/RASH Verified 10/26/24 01:35 Sulfa (Sulfonamide Allergy Severe ITCHY,RASH, Verified 10/26/24 01:35 Antibiotics) rash [Sulfa (Sulfonamides)] trimethoprim [From Bactrim] Allergy Severe HIVES Verified 10/26/24 01:35 Penicillins Allergy Intermediate Hives Verified 10/26/24 01:35 sulfamethoxazole Allergy Mild Hives Verified 10/26/24 01:35 [From Bactrim] Review of Systems Review of Systems: Yes all other systems are reviewed and are negative PMFSH Past Medical History 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) Unable to assess alcohol history related to: Unknown Alcohol intake: never Patient Tobacco Use Status: Never used Tobacco Smoked in Last 30 Days: No Use of substances other than those prescribed or required for medical reasons: No Advance Directives: Yes Advance Directives on File: Yes Advance Directives Date on File: 01/28/24 Do you have a plan to hurt others: No Plan service: No Physical Exam ED Vital Signs: Vital Signs - 24 hr 10/26/24 02:12 10/26/24 03:21 10/26/24 05:12 Temperature 99.1 F 98.6 F Pulse Rate 82 80 Respiratory Rate 16 14 Blood Pressure 126/73 147/77 H 152/73 H Pulse Oximetry 94 96 Oxygen Delivery Method Room Air Room Air 10/26/24 05:17 10/26/24 05:18 Temperature 98.6 F Pulse Rate 80 83 Respiratory Rate 14 18 Blood Pressure 152/73 H 152/73 H Pulse Oximetry 96 96 Oxygen Delivery Method Room Air Room Air BMI result Body Mass Index 32.3 Const Other: The patient is an anxious 79-year-old who does not seem in distress. HENMT Other: Face is symmetrical. Mucous membranes moist. Eyes General: appearance normal, both eyes and all related structures Neck Neck: Yes no JVD Resp Effort & Inspection: normal respiratory effort Auscultation: clear to auscultation bilaterally Cardio Rate: regular rate Rhythm: regular rhythm Heart sounds: S1 normal heart sound present and S2 normal heart sound present GI Other: Abdomen is soft and non-tender Skin Other: Skin is dry and unremarkable Neuro Other: The patient is awake and alert. She has an anxious demeanor but is not encephalopathic. Cranial nerves are grossly intact. She moves her extremities normally. Gait is steady Extrem Other: No peripheral edema. Medications Administered Discontinued Medications Generic Name Dose Route Start Last Admin Trade Name Freq PRN Reason Stop Dose Admin Acetaminophen 650 mg 10/26/24 03:23 10/26/24 03:53 Acetaminophen 325 Mg Tablet PO 10/26/24 03:24 650 mg ONCE ONE Administration Amlodipine Besylate 10 mg 10/26/24 05:03 10/26/24 05:12 Amlodipine Besylate 10 Mg Tablet PO 10/26/24 05:04 10 mg ONCE ONE Administration Protocol Hydroxyzine HCl 25 mg 10/26/24 01:02 10/26/24 01:39 Hydroxyzine Hcl 25 Mg Tablet PO 10/26/24 01:03 25 mg ONCE ONE Administration Medical Decision Making Medical Decision Making MDM Narrative: The patient returns to the emergency room very soon after having been discharged. She had received 0.5 mg of clonazepam at the previous visit. She says that she is still feeling panicky. She rested in the emergency room for several hours and ultimately she seemed to feel calm enough for discharge. She requested a dose of medication for her blood pressure which was slightly elevated. She was given her morning dose of 10 mg of amlodipine. Discharge Plan Discharge Clinical Impression: Anxiety Patient Disposition: Home, Self-Care Additional Instructions: Please pickling operator your medications from the pharmacy this morning. Resume your normal medications. Please note that you were given your morning dose of amlodipine here in the emergency room this morning. Please follow up with your regular doctor. Prescriptions: No Action metoprolol succinate 50 mg tablet extended release 24 hr 50 mg PO DAILY Qty: 90 2RF mirtazapine 45 mg Tablet 45 mg PO BEDTIME omeprazole 20 mg Tablet,Delayed Release (Dr/Ec) 20 mg PO DAILY@0630 fluticasone propionate [Flonase Allergy Relief] 50 mcg/actuation spray,suspension 2 spray intranasal DAILY Qty: 16 0RF Rx Instructions: administer into each nostril hydroxyzine HCl 25 mg tablet 25 mg PO TID PRN (Reason: anxiety) Qty: 6 0RF hydroxyzine HCl 25 mg tablet 25 mg PO TID PRN (Reason: anxiety) Qty: 20 0RF trazodone 50 mg tablet 50 mg PO BEDTIME ferrous sulfate [FeroSul] 325 mg (65 mg iron) tablet 325 mg PO DAILY diphenhydramine HCl [Lou-Dryl] 25 mg tablet 25 mg PO BEDTIME PRN (Reason: itch) bisacodyl 5 mg tablet,delayed release (DR/EC) 5 mg PO DAILY PRN (Reason: constipation) rosuvastatin 20 mg tablet 20 mg PO BEDTIME aspirin 81 mg tablet,delayed release (DR/EC) 81 mg PO QAM multivitamin Tablet 1 tab PO QAM melatonin 10 mg tablet extended release 10 mg PO BEDTIME PRN (Reason: Insomnia) cholecalciferol (vitamin D3) 25 mcg (1,000 unit) tablet 25 mcg PO DAILY ondansetron 4 mg tablet,disintegrating 4 mg PO Q6H PRN (Reason: nausea and vomiting) Qty: 10 0RF acetaminophen 500 mg tablet 500 mg PO Q8H PRN (Reason: pain) zolpidem 5 mg tablet 5 mg PO BEDTIME PRN (Reason: Insomnia) ipratropium bromide 21 mcg (0.03 %) spray,non-aerosol 2 spray intranasal BID clonazepam 0.5 mg Tablet 0.5 mg PO TID Qty: 180 0RF gabapentin 100 mg Capsule 100 mg PO TID Qty: 180 0RF nitrofurantoin monohyd/m-cryst [Macrobid] 100 mg capsule 100 mg PO Q12H 3 Days Qty: 6 0RF Rx Instructions: must administer with a meal/food miconazole nitrate [Monistat 7] 2 % cream 1 appful vaginal BEDTIME 7 Days Qty: 45 0RF valsartan 160 mg tablet 160 mg PO DAILY Qty: 90 1RF amlodipine 10 mg tablet 10 mg PO DAILY meclizine 25 mg tablet 25 mg PO DAILY PRN Referrals: Name,MD Nitin [Primary Care Provider] - Interventions: ED Discharge Assessment Last Done: 10/26/24 05:17 Discharge Date/Time: 10/26/24 05:18 Print Language: Bulgarian
[2024-10-26 01:34] VITALS: BP 150/74; PULSE 93; O2SAT 98; BMI 32.3
[2024-10-26] MEDS: hydrOXYzine HCL 25 MG TABLET PO (01:39)
[2024-10-26 02:12] VITALS: BP 126/73; PULSE 82; RESP 16; TEMP 37.3; O2SAT 94
[2024-10-26 03:21] VITALS: BP 147/77; PULSE 80; RESP 14; TEMP 37; O2SAT 96
[2024-10-26] MEDS: Acetaminophen 325 MG TABLET 650 MG PO (03:53)
[2024-10-26 05:12] VITALS: BP 152/73
[2024-10-26] MEDS: amLODIPine Besylate 10 MG TABLET PO (05:12)
[2024-10-26 05:17] VITALS: BP 152/73; PULSE 80; RESP 14; TEMP 37; O2SAT 96
[2024-10-26 05:18] VITALS: BP 152/73; PULSE 83; RESP 18; O2SAT 96
== END 2024-10-26 05:18 | disposition home or self-care (01) ==
PROVIDERS: Emergency Provider Emergency Medicine; PCP Internal Medicine Geriatric Medicine
DX: F41.9 Anxiety disorder, unspecified (principal); I10 Essential (primary) hypertension; Z79.899 Other long term (current) drug therapy
CPT/HCPCS: 99283; 99284

== ENCOUNTER 2024-11-10 18:41 | Emergency (ER) | payer OTHER, SELFPAY ==
[2024-11-10 19:08] VITALS: BP 148/76; PULSE 108; O2SAT 96
== END 2024-11-10 19:43 | disposition left against medical advice (07) ==
PROVIDERS: Emergency Provider Emergency Medicine; PCP Internal Medicine Geriatric Medicine
DX: R51.9 Headache, unspecified (principal); H93.12 Tinnitus, left ear; Z53.21 Procedure and treatment not carried out due to patient leaving prior to being seen by health care provider

== ENCOUNTER 2024-11-10 22:23 | Emergency (ER) | payer OTHER, SELFPAY ==
--- NOTE | ~2024-11-10 | XR_ITS ---
CLINICAL HISTORY: cough 2 view chest x-ray Comparison: CR/ND/SR - XR CHEST 2V - 10/17/24 14:00 EST Findings: No consolidation or effusion. Normal size heart. No acute fracture. IMPRESSION: 1. No acute findings. This document has been electronically signed by: Stefano Marie MD on 11/11/2024 00:38:20
[2024-11-10 22:27] VITALS: BP 122/64; BP 158/79; PULSE 81; PULSE 84; RESP 18; TEMP 36.9; O2SAT 98; BMI 36.7
--- NOTE | 2024-11-10 22:45 | MHC.EDTECH ---
Sars/flu/rsv and strep swabs obtained and sent to lab
[2024-11-10 23:26] LABS: Influenza A PCR NEGATIVE (Negative); Influenza B PCR NEGATIVE (Negative); Resp Syncy Virus RNA Qual PCR NEGATIVE (Negative); SARS COV2 PCR INHOUSE NEGATIVE (Negative)
[2024-11-11 00:13] LABS: IDNOW Serial# 58CA691E; Strep A Nucleic Acid Negative (Negative)
--- NOTE | 2024-11-11 00:40 | ED.URI ---
HPI - URI/Sore Throat General Chief Complaint: Upper Respiratory Symptoms Stated Complaint: ?Fever Time Seen by Provider: 11/10/24 23:31 Source: patient Limitations: no limitations History of Present Illness ED Provider: Jeanne Shen PA-C HPI Narrative: 79-year-old female with a history of anxiety, chronic kidney disease, neurocognitive disorder, hypertension, presents with sore throat, left ear pain and subjective fever x1 hour. Denies recent cough or cold symptoms. Denies sick contacts with same symptoms. Related Data Home Medications ?Medication ?Instructions ?Recorded ?Confirmed mirtazapine 45 mg tablet 45 mg PO BEDTIME 08/09/20 09/29/24 omeprazole 20 mg tablet,delayed 20 mg PO DAILY@0630 08/09/20 09/29/24 release aspirin 81 mg tablet,delayed 81 mg PO QAM 01/28/24 09/29/24 release bisacodyl 5 mg tablet,delayed 5 mg PO DAILY PRN constipation 01/28/24 09/29/24 release diphenhydramine HCl 25 mg tablet 25 mg PO BEDTIME PRN itch 01/28/24 09/29/24 (Lou-Dryl) ferrous sulfate 325 mg (65 mg 325 mg PO DAILY 01/28/24 09/29/24 iron) tablet (FeroSul) melatonin 10 mg tablet,extended 10 mg PO BEDTIME PRN Insomnia 01/28/24 09/29/24 release multivitamin 1 tab PO QAM 01/28/24 09/29/24 rosuvastatin 20 mg tablet 20 mg PO BEDTIME 01/28/24 09/29/24 trazodone 50 mg tablet 50 mg PO BEDTIME 01/28/24 09/29/24 amlodipine 10 mg tablet 10 mg PO DAILY 02/09/24 09/29/24 acetaminophen 500 mg tablet 500 mg PO Q8H PRN pain 08/09/24 09/29/24 ipratropium bromide 21 mcg (0.03 2 spray intranasal BID 08/09/24 09/29/24 %) nasal spray zolpidem 5 mg tablet 5 mg PO BEDTIME PRN Insomnia 08/09/24 09/29/24 cholecalciferol (vitamin D3) 25 25 mcg PO DAILY 08/20/24 09/29/24 mcg (1,000 unit) tablet meclizine 25 mg tablet 25 mg PO DAILY PRN 09/29/24 09/29/24 Previous Rx's ?Medication ?Instructions ?Recorded metoprolol succinate 50 mg 50 mg PO DAILY #90 tabs 09/28/20 tablet,extended release 24 hr fluticasone propionate 50 2 spray intranasal DAILY #16 grams 09/16/23 mcg/actuation nasal spray,suspension (Flonase Allergy Relief) ondansetron 4 mg disintegrating 4 mg PO Q6H PRN nausea and 04/28/24 tablet vomiting #10 tabs hydroxyzine HCl 25 mg tablet 25 mg PO TID PRN anxiety #6 tabs 08/07/24 clonazepam 0.5 mg tablet 0.5 mg PO TID #180 tabs 08/10/24 gabapentin 100 mg capsule 100 mg PO TID #180 caps 08/10/24 valsartan 160 mg tablet 160 mg PO DAILY #90 tabs 08/20/24 hydroxyzine HCl 25 mg tablet 25 mg PO TID PRN anxiety #20 tabs 09/09/24 miconazole nitrate 2 % vaginal 1 appful vaginal BEDTIME 7 days 10/09/24 cream (Monistat 7) #45 grams nitrofurantoin 100 mg PO Q12H 3 days #6 caps 10/09/24 monohydrate/macrocrystals 100 mg capsule (Macrobid) Allergies Allergy/AdvReac Type Severity Reaction Status Date / Time penicillin G [Penicillin G] Allergy Severe ITCHY/RASH Verified 11/10/24 22:30 Sulfa (Sulfonamide Allergy Severe ITCHY,RASH, Verified 11/10/24 22:30 Antibiotics) rash [Sulfa (Sulfonamides)] trimethoprim [From Bactrim] Allergy Severe HIVES Verified 11/10/24 22:30 Penicillins Allergy Intermediate Hives Verified 11/10/24 22:30 sulfamethoxazole Allergy Mild Hives Verified 11/10/24 22:30 [From Bactrim] Review of Systems Review of Systems: Yes all other systems are reviewed and are negative Constitutional: Constitutional: Denies fatigue and Reports fever(s) ENT: Reports sore throat Cardiovascular: Cardiovascular: Denies chest pain and Denies dyspnea Respiratory: Respiratory: Denies chest congestion, Denies cough and Denies dyspnea Endocrine: Endocrine: Denies fatigue PMFSH Past Medical History Attestation statement: The following information was validated with the patient. 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) Unable to assess alcohol history related to: Unknown Alcohol intake: never Patient Tobacco Use Status: Never used Tobacco Advance Directives: Yes Advance Directives on File: Yes Advance Directives Date on File: 01/28/24 Do you have a plan to hurt others: No Plan service: No Physical Exam Vital Signs: Vital Signs: Last Vital Signs Temp 98.4 F 11/10/24 22:27 Pulse 81 11/10/24 22:27 Resp 18 11/10/24 22:27 BP 122/64 11/10/24 22:27 Pulse Ox 98 11/10/24 22:27 O2 Del Method Room Air 11/10/24 22:27 BMI result Body Mass Index 36.7 Const: Other: Alert well-appearing Orientation/consciousness: patient oriented x3 HEENT: Other: No tragal tenderness of left ear, cerumen in the canal, can not completely visualize the TM. Opiate erythematous without overlying exudate, uvula midline no trismus no drooling. No sublingual fluctuance no swelling inferior to the jawline. No anterior cervical lymphadenopathy Resp: Effort & Inspection: normal respiratory effort Cardio: Other: Normal peripheral perfusion Skin: Other: Warm dry no rash Neuro: General: patient oriented x3, no focal motor deficits and CN's II-XI intact bilaterally Psych: Other: cooperative Medical Decision Making Medical Decision Making MDM Narrative: 79-year-old female with a history of anxiety, chronic kidney disease, neurocognitive disorder, hypertension, presents with sore throat , left ear pain, subjective fever x1 hour. Denies recent cough or cold symptoms. Denies sick contacts with same symptoms. 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 Viral panel, strep panel and chest x-ray we will be obtained. Her exam was unremarkable. Likely just viral pharyngitis. She has no exam findings suggestive of RPA or GYMNASTICS COACH OR INSTRUCTOR. I have independently reviewed the following tests: Labs: Viral panel negative strep panel negative Chest x-ray:IMPRESSION: 1. No acute findings. This document has been electronically signed by: Stefano Marie MD on 11/11/2024 00:38:20 Lab Data Labs: Lab Results 11/10/24 Range/Units 22:42 Influenza Type A (PCR) NEGATIVE (Negative) Influenza Type B (PCR) NEGATIVE (Negative) RSV RNA Qual (PCR) NEGATIVE (Negative) SARS-CoV-2 RNA (RT-PCR) NEGATIVE (Negative) S. pyogenes GrpA MYAH Negative (Negative) Discharge Plan Discharge Clinical Impression: Acute viral pharyngitis Patient Disposition: Home, Self-Care Instructions: Pharyngitis (ED) Additional Instructions: You have a virus causing your sore throat. See home care instructions. You do not have an ear infection of the left ear, you have congestion. You can use [id number] Zyrtec for the congestion. Warm saltwater gargles we will help your throat pain. Follow up with your primary care provider this week. The chest x-ray was negative for pneumonia, you do not have strep throat, in the viral panel was negative; you were tested for influenza a and B, RSV and COVID. Prescriptions: No Action metoprolol succinate 50 mg tablet extended release 24 hr 50 mg PO DAILY Qty: 90 2RF mirtazapine 45 mg Tablet 45 mg PO BEDTIME omeprazole 20 mg Tablet,Delayed Release (Dr/Ec) 20 mg PO DAILY@0630 fluticasone propionate [Flonase Allergy Relief] 50 mcg/actuation spray,suspension 2 spray intranasal DAILY Qty: 16 0RF Rx Instructions: administer into each nostril hydroxyzine HCl 25 mg tablet 25 mg PO TID PRN (Reason: anxiety) Qty: 6 0RF hydroxyzine HCl 25 mg tablet 25 mg PO TID PRN (Reason: anxiety) Qty: 20 0RF trazodone 50 mg tablet 50 mg PO BEDTIME ferrous sulfate [FeroSul] 325 mg (65 mg iron) tablet 325 mg PO DAILY diphenhydramine HCl [Lou-Dryl] 25 mg tablet 25 mg PO BEDTIME PRN (Reason: itch) bisacodyl 5 mg tablet,delayed release (DR/EC) 5 mg PO DAILY PRN (Reason: constipation) rosuvastatin 20 mg tablet 20 mg PO BEDTIME aspirin 81 mg tablet,delayed release (DR/EC) 81 mg PO QAM multivitamin Tablet 1 tab PO QAM melatonin 10 mg tablet extended release 10 mg PO BEDTIME PRN (Reason: Insomnia) cholecalciferol (vitamin D3) 25 mcg (1,000 unit) tablet 25 mcg PO DAILY ondansetron 4 mg tablet,disintegrating 4 mg PO Q6H PRN (Reason: nausea and vomiting) Qty: 10 0RF acetaminophen 500 mg tablet 500 mg PO Q8H PRN (Reason: pain) zolpidem 5 mg tablet 5 mg PO BEDTIME PRN (Reason: Insomnia) ipratropium bromide 21 mcg (0.03 %) spray,non-aerosol 2 spray intranasal BID clonazepam 0.5 mg Tablet 0.5 mg PO TID Qty: 180 0RF gabapentin 100 mg Capsule 100 mg PO TID Qty: 180 0RF nitrofurantoin monohyd/m-cryst [Macrobid] 100 mg capsule 100 mg PO Q12H 3 Days Qty: 6 0RF Rx Instructions: must administer with a meal/food miconazole nitrate [Monistat 7] 2 % cream 1 appful vaginal BEDTIME 7 Days Qty: 45 0RF valsartan 160 mg tablet 160 mg PO DAILY Qty: 90 1RF amlodipine 10 mg tablet 10 mg PO DAILY meclizine 25 mg tablet 25 mg PO DAILY PRN Print Language: Malian
[2024-11-11 00:49] LABS: Glucose, Whole Blood 119 mg/dL (60-115)
[2024-11-11 01:14] VITALS: BP 129/71; PULSE 77; RESP 18; TEMP 37.1; O2SAT 98
== END 2024-11-11 01:16 | disposition home or self-care (01) ==
PROVIDERS: Emergency Provider Emergency Medicine
DX: J02.9 Acute pharyngitis, unspecified (principal); H92.02 Otalgia, left ear; Z03.818 Encounter for observation for suspected exposure to other biological agents ruled out; I12.9 Hypertensive chronic kidney disease with stage 1 through stage 4 chronic kidney disease, or unspecified chronic kidney disease; N18.30 Chronic kidney disease, stage 3 unspecified; Z79.82 Long term (current) use of aspirin; Z79.02 Long term (current) use of antithrombotics/antiplatelets; Z79.899 Other long term (current) drug therapy
CPT/HCPCS: 0241U; 71046; 82947; 87651; 99282; 99283

== ENCOUNTER → 2024-11-10 23:32 | Outpatient (BNV) | payer OTHER, SELFPAY | PROVIDERS: Emergency Provider Emergency Medicine; Visit Provider Radiology Diagnostic Radiology | DX: R05.9 Cough, unspecified (principal) | CPT/HCPCS: 71046 ==

== ENCOUNTER 2024-11-14 16:47 | Emergency (ER) | payer OTHER, SELFPAY ==
--- NOTE | ~2024-11-14 | CT_ITS ---
CLINICAL HISTORY: dizziness CT head without contrast Comparison: CT/SR - CT HEAD/BRAIN WO IV CON - 10/12/24 08:47 EST Findings: No intra-axial mass, midline shift, hydrocephalus, or acute hemorrhage. No significant atrophy-like change or white matter disease. There is fluid within a few ethmoid air cells. Paranasal sinuses otherwise clear. Small amount of fluid in the bilateral mastoid air cells. The orbits are within normal limits. No skull fracture. IMPRESSION: 1. No acute intracranial findings This document has been electronically signed by: Stefano Marie MD on 11/14/2024 20:59:09
[2024-11-14 16:55] VITALS: BP 167/98; PULSE 100; O2SAT 99
[2024-11-14 17:25] VITALS: BP 147/75; PULSE 77; RESP 18; TEMP 36.8; O2SAT 96; BMI 28.0
--- NOTE | 2024-11-14 17:33 | ECG_ITS ---
Test Reason : DIZZINESS Blood Pressure : / mmHG Vent. Rate : 073 BPM Atrial Rate : 073 BPM P-R Int : 184 ms QRS Dur : 098 ms QT Int : 390 ms P-R-T Axes : 038 -29 018 degrees QTc Int : 429 ms Normal sinus rhythm with sinus arrhythmia Moderate voltage criteria for LVH, may be normal variant ( R in aVL , [place] product ) Borderline ECG When compared with ECG of 25-OCT-2024 20:27, No significant change was found Referred By: Cuco Amador Electronically Signed By:ZANDRA ENNIS
--- NOTE | 2024-11-14 17:34 | ED.GENADULT ---
HPI - General Adult General Chief complaint: Nausea/Vomiting/Diarrhea Stated complaint: High bp Time Seen by Provider: 11/14/24 20:07 Source: patient, RN notes reviewed, old records reviewed and staff interpreter Mode of arrival: EMS Limitations: language barrier History of Present Illness ED Provider: Aniyah HPI narrative: 79-year-old female with past medical history significant for chronic kidney disease, major neurocognitive disorder, hypertension, dementia, anxiety presents for evaluation of nausea, vomiting, anxiety, ?dizziness. Patient reports that she ran out of her medications and she is having a panic attack This started around 8:00 a.m. this morning She currently denies any headache or dizziness. She is no longer vomiting She was requesting ?medication for anxiety. ? It appears that she is on a prescription plan as she only gets 1 week prescriptions and likely needs to see a provider every week to continue receiving her prescriptions Patient received a 1 week prescription of trazodone, clonazepam, sertraline, mirtazapine on 11/08/2024. She received a 1 week prescription of zolpidem 5 mg on 11/12/2024. She received a 30 day prescription of metoprolol 50 mg on 11/01/2024 Related Data Home Medications ?Medication ?Instructions ?Recorded ?Confirmed mirtazapine 45 mg tablet 45 mg PO BEDTIME 08/09/20 09/29/24 omeprazole 20 mg tablet,delayed 20 mg PO DAILY@0630 08/09/20 09/29/24 release aspirin 81 mg tablet,delayed 81 mg PO QAM 01/28/24 09/29/24 release bisacodyl 5 mg tablet,delayed 5 mg PO DAILY PRN constipation 01/28/24 09/29/24 release diphenhydramine HCl 25 mg tablet 25 mg PO BEDTIME PRN itch 01/28/24 09/29/24 (Lou-Dryl) ferrous sulfate 325 mg (65 mg 325 mg PO DAILY 01/28/24 09/29/24 iron) tablet (FeroSul) melatonin 10 mg tablet,extended 10 mg PO BEDTIME PRN Insomnia 01/28/24 09/29/24 release multivitamin 1 tab PO QAM 01/28/24 09/29/24 rosuvastatin 20 mg tablet 20 mg PO BEDTIME 01/28/24 09/29/24 trazodone 50 mg tablet 50 mg PO BEDTIME 01/28/24 09/29/24 amlodipine 10 mg tablet 10 mg PO DAILY 02/09/24 09/29/24 acetaminophen 500 mg tablet 500 mg PO Q8H PRN pain 08/09/24 09/29/24 ipratropium bromide 21 mcg (0.03 2 spray intranasal BID 08/09/24 09/29/24 %) nasal spray zolpidem 5 mg tablet 5 mg PO BEDTIME PRN Insomnia 08/09/24 09/29/24 cholecalciferol (vitamin D3) 25 25 mcg PO DAILY 08/20/24 09/29/24 mcg (1,000 unit) tablet meclizine 25 mg tablet 25 mg PO DAILY PRN 09/29/24 09/29/24 Previous Rx's ?Medication ?Instructions ?Recorded metoprolol succinate 50 mg 50 mg PO DAILY #90 tabs 09/28/20 tablet,extended release 24 hr fluticasone propionate 50 2 spray intranasal DAILY #16 grams 09/16/23 mcg/actuation nasal spray,suspension (Flonase Allergy Relief) ondansetron 4 mg disintegrating 4 mg PO Q6H PRN nausea and 04/28/24 tablet vomiting #10 tabs hydroxyzine HCl 25 mg tablet 25 mg PO TID PRN anxiety #6 tabs 08/07/24 clonazepam 0.5 mg tablet 0.5 mg PO TID #180 tabs 08/10/24 gabapentin 100 mg capsule 100 mg PO TID #180 caps 08/10/24 valsartan 160 mg tablet 160 mg PO DAILY #90 tabs 08/20/24 hydroxyzine HCl 25 mg tablet 25 mg PO TID PRN anxiety #20 tabs 09/09/24 miconazole nitrate 2 % vaginal 1 appful vaginal BEDTIME 7 days 10/09/24 cream (Monistat 7) #45 grams nitrofurantoin 100 mg PO Q12H 3 days #6 caps 10/09/24 monohydrate/macrocrystals 100 mg capsule (Macrobid) Allergies Allergy/AdvReac Type Severity Reaction Status Date / Time penicillin G [Penicillin G] Allergy Severe ITCHY/RASH Verified 11/14/24 23:54 Sulfa (Sulfonamide Allergy Severe ITCHY,RASH, Verified 11/14/24 23:54 Antibiotics) rash [Sulfa (Sulfonamides)] trimethoprim [From Bactrim] Allergy Severe HIVES Verified 11/14/24 23:54 Penicillins Allergy Intermediate Hives Verified 11/14/24 23:54 sulfamethoxazole Allergy Mild Hives Verified 11/14/24 23:54 [From Bactrim] Review of Systems Constitutional: Constitutional: Denies body ache(s), Denies chills, Denies fever(s) and Reports headache(s) Eyes: Eyes: Denies blurry vision ENT: Denies vertigo, Reports dizziness and Reports headache(s) Cardiovascular: Cardiovascular: Denies chest pain, Denies chest pain at rest and Denies dyspnea Respiratory: Respiratory: Denies cough and Denies dyspnea Gastrointestinal: Gastrointestinal: Denies abdominal pain, Reports nausea and Reports vomiting Musculoskeletal: Musculoskeletal: Denies back pain Integumentary/Breasts: Skin/Breast: Denies rash Neurologic: Denies vertigo, Reports dizziness and Reports headache(s) Psychiatric: Psychiatric: Reports anxiety, Denies depression and Denies suicidal ideation [facility] Past Medical History 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 or 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 ([employer]) Unable to assess alcohol history related to: Unknown Alcohol intake: never Patient Tobacco Use Status: Never used Tobacco Advance Directives: Yes Advance Directives on File: Yes Advance Directives Date on File: 01/28/24 service: No Physical Exam ED Vital Signs: Vital Signs - 24 hr 11/14/24 17:25 11/14/24 19:45 11/14/24 20:08 Temperature 98.3 F 98.8 F 98.2 F Pulse Rate 77 73 72 Respiratory Rate 18 18 16 Blood Pressure 147/75 H 151/79 H 151/79 H Pulse Oximetry 96 96 97 Oxygen Delivery Method Room Air Room Air Room Air 11/14/24 20:09 11/14/24 20:09 11/14/24 20:09 Temperature Pulse Rate 72 80 70 Respiratory Rate Blood Pressure 147/72 H 130/71 143/66 H Pulse Oximetry Oxygen Delivery Method 11/14/24 21:36 Temperature 98.2 F Pulse Rate 70 Respiratory Rate 17 Blood Pressure 143/66 H Pulse Oximetry 99 Oxygen Delivery Method Room Air BMI result Body Mass Index 28.0 Const General: healthy appearing, comfortable, no acute distress, alert and awake Nutritional Appearance: well nourished Orientation/consciousness: patient oriented x3 HENMT Head: Yes normocephalic and Yes atraumatic Eyes Eyelids: Yes eyelids normal Conjunctivae: conjunctivae normal Sclerae: sclerae normal Corneas: corneas normal Pupils: Equal, round and reactive pupils present EOM: EOMs intact bilaterally Neck Neck: Yes full ROM Resp Effort & Inspection: normal respiratory effort, able to speak in complete sentences and not labored GI Inspection: No distended Palpation (GI): Soft to palpation, not firm, nontender, no guarding and not rigid Skin General skin exam: no rashes or lesions noted and elasticity normal Neuro General: patient oriented x3 Cranial nerves: Yes CN's II-XII intact bilaterally, Yes Equal, round and reactive pupils present and Yes Bilaterally intact EOM present Cognition (Neuro): normal cognition Extrem Other: Moving all extremities well without any obvious deformities Course Course Course Narrative: RME: 79 yold female presents to ED for headache, dizziness, nausea, vomiting, and anxiety. Patient states she has been without her meds including her anxiety meds for the past couple of days. Patient does not have no medication until . Patient denies any chest pain or shortness of breath. NIH score is 0. Labs ordered for EKG. Medications Administered Discontinued Medications Generic Name Dose Route Start Last Admin Trade Name Samyq PRN Reason Stop Dose Admin Acetaminophen 650 mg 11/14/24 19:46 11/14/24 19:48 Acetaminophen 325 Mg Tablet PO 11/14/24 19:47 650 mg ONCE ONE Administration Hydroxyzine HCl 50 mg 11/14/24 20:42 11/14/24 20:56 Hydroxyzine Hcl 50 Mg Tablet PO 11/14/24 20:43 50 mg ONCE ONE Administration Metoprolol Succinate 25 mg 11/14/24 21:12 11/14/24 21:15 Metoprolol Succinate Er 25 Mg Tab.Er.24h PO 11/14/24 21:13 25 mg ONCE ONE Administration Protocol Medical Decision Making Medical Decision Making MDM Narrative: 79-year-old female with past medical history as documented above presents for evaluation of anxiety, dizziness, nausea and vomiting. She reports still feeling anxious but her other symptoms have resolved. Her workup is largely unremarkable, CT scan of her head is pending that was ordered in triage. She does not have orthostatic hypotension. Her labs are consistent with a baseline, she has a mild normocytic anemia, no leukocytosis, no left shift. Chemistries have no concerning abnormalities. We will treat her anxiety with hydroxyzine. I informed the patient I will not prescribe the patient is including Ativan and clonazepam. 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 She reports that she sees her doctor on Friday for refill of all of her medications. Differential Diagnosis Differential Diagnoses: The differential diagnosis associated with the presentation includes Anxiety Malingering Hypertension Orthostasis Viral syndrome Lab Data MDM Lab Attestation statement: I reviewed the patient's lab results. As above 11/14/24 17:55 11/14/24 17:55 Labs: Lab Results 11/14/24 Range/Units 17:55 WBC 6.8 (4.8-10.8) X10*3/uL RBC 3.90 L (4.20-5.50) X10*6/uL Hgb 11.2 L (12.0-16.0) g/dl Hct 32.8 L (37.0-47.0) % MCV 84.1 (80.0-98.0) fL MCH 28.7 (27.0-33.0) pg MCHC 34.1 (31.0-35.0) g/dl RDW 14.0 (11.0-16.0) % Plt Count 266 (160-400) X10*3/uL MPV 8.3 L (9.4-12.3) fL Immature Gran % (Auto) 0.4 (0.0-0.4) % Neut % (Auto) 58.8 (45-73) % Lymph % (Auto) 24.7 (20-40) % [place] % (Auto) 10.5 (2-11) % Eos % (Auto) 4.7 H (0-4) % Baso % (Auto) 0.9 (0-2) % Lymph # (Auto) 1.7 (1.2-4.9) X10*3/uL [place] # (Auto) 0.7 (0.1-1.2) X10*3/uL Eos # (Auto) 0.3 (0.0-0.4) X10*3/uL Baso # (Auto) 0.1 (0.0-0.2) X10*3/uL Abs Immat Gran (auto) 0.03 (0.00-0.03) X10*3/uL Absolute Neuts (auto) 4.0 (2.0-8.3) x10*3/uL Absolute Nucleated RBC 0.000 (0.0-0.012) X10*3/uL Nucleated RBC % (auto) 0.0 (0.0-0.2) /100WBC PT 11.1 (10.9-12.4) SEC INR 1.0 (0.9-1.1) APTT 26.9 (26.0-36.8) SEC Sodium 135 (135-145) mmol/L Potassium 4.2 (3.3-5.1) mmol/L Chloride 103 (96-108) mmol/L Carbon Dioxide 23 (22-29) mmol/L Anion Gap 13 (12-20) BUN 26 H (9-16) mg/dL Creatinine 0.84 (0.5-1.4) mg/dL Estim Creat Clear Calc 59.4 Estimated GFR > 60 Random Glucose 117 H (60-115) mg/dL Calcium 8.8 (8.4-10.2) mg/dL Total Bilirubin 0.3 (0.0-1.0) mg/dL AST 28 (5-31) U/L ALT 19 (0-31) U/L Alkaline Phosphatase 60 (39-117) U/L Troponin I High Sens < 2.7 (<3.5-17.0) ng/L Total Protein 7.8 (6.5-8.0) g/dL Albumin 4.1 (3.5-5.0) g/dL Independent Interpretation I performed an independent interpretation of an: CT Scan Interpretation: Findings: No intra-axial mass, midline shift, hydrocephalus, or acute hemorrhage. No significant atrophy-like change or white matter disease. There is fluid within a few ethmoid air cells. Paranasal sinuses otherwise clear. Small amount of fluid in the bilateral mastoid air cells. The orbits are within normal limits. No skull fracture. IMPRESSION: 1. No acute intracranial findings This document has been electronically signed by: Stefano Marie MD on 11/14/2024 20:59:09 Discharge Plan Discharge Clinical Impression: Generalized anxiety disorder with panic attacks Patient Disposition: Home, Self-Care Instructions: Anxiety (ED) Additional Instructions: Your workup in the ER today is reassuring. Call your primary doctor tomorrow to schedule follow-up and make sure you are continuing to get your medication refill Prescriptions: No Action metoprolol succinate 50 mg tablet extended release 24 hr 50 mg PO DAILY Qty: 90 2RF mirtazapine 45 mg Tablet 45 mg PO BEDTIME omeprazole 20 mg Tablet,Delayed Release (Dr/Ec) 20 mg PO DAILY@0630 fluticasone propionate [Flonase Allergy Relief] 50 mcg/actuation spray,suspension 2 spray intranasal DAILY Qty: 16 0RF Rx Instructions: administer into each nostril hydroxyzine HCl 25 mg tablet 25 mg PO TID PRN (Reason: anxiety) Qty: 6 0RF hydroxyzine HCl 25 mg tablet 25 mg PO TID PRN (Reason: anxiety) Qty: 20 0RF trazodone 50 mg tablet 50 mg PO BEDTIME ferrous sulfate [FeroSul] 325 mg (65 mg iron) tablet 325 mg PO DAILY diphenhydramine HCl [Lou-Dryl] 25 mg tablet 25 mg PO BEDTIME PRN (Reason: itch) bisacodyl 5 mg tablet,delayed release (DR/EC) 5 mg PO DAILY PRN (Reason: constipation) rosuvastatin 20 mg tablet 20 mg PO BEDTIME aspirin 81 mg tablet,delayed release (DR/EC) 81 mg PO QAM multivitamin Tablet 1 tab PO QAM melatonin 10 mg tablet extended release 10 mg PO BEDTIME PRN (Reason: Insomnia) cholecalciferol (vitamin D3) 25 mcg (1,000 unit) tablet 25 mcg PO DAILY ondansetron 4 mg tablet,disintegrating 4 mg PO Q6H PRN (Reason: nausea and vomiting) Qty: 10 0RF acetaminophen 500 mg tablet 500 mg PO Q8H PRN (Reason: pain) zolpidem 5 mg tablet 5 mg PO BEDTIME PRN (Reason: Insomnia) ipratropium bromide 21 mcg (0.03 %) spray,non-aerosol 2 spray intranasal BID clonazepam 0.5 mg Tablet 0.5 mg PO TID Qty: 180 0RF gabapentin 100 mg Capsule 100 mg PO TID Qty: 180 0RF nitrofurantoin monohyd/m-cryst [Macrobid] 100 mg capsule 100 mg PO Q12H 3 Days Qty: 6 0RF Rx Instructions: must administer with a meal/food miconazole nitrate [Monistat 7] 2 % cream 1 appful vaginal BEDTIME 7 Days Qty: 45 0RF valsartan 160 mg tablet 160 mg PO DAILY Qty: 90 1RF amlodipine 10 mg tablet 10 mg PO DAILY meclizine 25 mg tablet 25 mg PO DAILY PRN Interventions: ED Discharge Assessment Last Done: 11/14/24 21:36 Discharge Date/Time: 11/14/24 21:36 Print Language: Pashto
[2024-11-14 17:59] LABS: MANUAL DIFF FLAG NO
[2024-11-14 18:00] LABS: Basophils Absolute Auto 0.1 X10*3/uL (0.0-0.2); Basophils Percent Auto 0.9 % (0-2); Eosinophils Absolute Auto 0.3 X10*3/uL (0.0-0.4); Eosinophils Percent Auto 4.7 % (0-4); Hematocrit 32.8 % (37.0-47.0); Hemoglobin 11.2 g/dl (12.0-16.0); Imm Gran Abs Auto 0.03 X10*3/uL (0.00-0.03); Imm Gran Pct Auto 0.4 % (0.0-0.4); Lymphocytes Absolute Auto 1.7 X10*3/uL (1.2-4.9); Lymphocytes Percent Auto 24.7 % (20-40); Mean Corpuscular HGB Conc 34.1 g/dl (31.0-35.0); Mean Corpuscular Hemoglobin 28.7 pg (27.0-33.0); Mean Corpuscular Volume 84.1 fL (80.0-98.0); Mean Platelet Volume 8.3 fL (9.4-12.3); Monocytes Absolute Auto 0.7 X10*3/uL (0.1-1.2); Monocytes Percent Auto 10.5 % (2-11); Neutrophils Percent Auto 58.8 % (45-73); Platelet Count 266 X10*3/uL (160-400); White Blood Count 6.8 X10*3/uL (4.8-10.8)
[2024-11-14 18:09] LABS: Prothrombin Time 11.1 SEC (10.9-12.4)
[2024-11-14 18:12] LABS: Partial Thromboplastin Time 26.9 SEC (26.0-36.8)
[2024-11-14 18:14] LABS: Alanine Aminotransferase 19 U/L (0-31); Albumin Level 4.1 g/dL (3.5-5.0); Alkaline Phosphatase 60 U/L (39-117); Anion Gap 13 (12-20); Aspartate Amino Transferase 28 U/L (5-31); Bilirubin Total 0.3 mg/dL (0.0-1.0); Blood Urea Nitrogen 26 mg/dL (9-16); Calcium 8.8 mg/dL (8.4-10.2); Carbon Dioxide 23 mmol/L (22-29); Chloride 103 mmol/L (96-108); Creatinine Clr Calc Pharmacy 59.4; Estimated Glomerular Filt Rate > 60; Glucose Random 117 mg/dL (60-115); Potassium 4.2 mmol/L (3.3-5.1); Sodium 135 mmol/L (135-145); Total Protein 7.8 g/dL (6.5-8.0)
[2024-11-14 18:22] LABS: Troponin-I High Sensitivity < 2.7 ng/L (<3.5-17.0)
[2024-11-14 19:45] VITALS: BP 151/79; PULSE 73; RESP 18; TEMP 37.1; O2SAT 96
[2024-11-14] MEDS: Acetaminophen 325 MG TABLET 650 MG PO (19:48)
[2024-11-14 20:08] VITALS: BP 151/79; PULSE 72; RESP 16; TEMP 36.8; O2SAT 97
[2024-11-14 20:09] VITALS: BP 130/71; BP 143/66; BP 147/72; PULSE 70; PULSE 72; PULSE 80
--- NOTE | 2024-11-14 20:33 | PC.NURSE ---
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 pt a&ox4, respirations even and unlabored. pt reports she woke up with heart palpitations and anxiety. pt reports she is unable to take her medicine until friday. pt reports this increases her blood pressure which she is still unable to take her medicine. pt reports she is feeling better at this time.
[2024-11-14] MEDS: hydrOXYzine HCL 50 MG TABLET PO (20:56)
[2024-11-14] MEDS: Metoprolol Succinate ER 25 MG TAB.ER.24H PO (21:15)
[2024-11-14 21:36] VITALS: BP 143/66; PULSE 70; RESP 17; TEMP 36.8; O2SAT 99
== END 2024-11-14 21:36 | disposition home or self-care (01) ==
PROVIDERS: Physician Assistant; Emergency Provider Emergency Medicine Emergency Medical Services
DX: F41.9 Anxiety disorder, unspecified (principal); F41.0 Panic disorder [episodic paroxysmal anxiety]; I49.8 Other specified cardiac arrhythmias; R11.2 Nausea with vomiting, unspecified; R42 Dizziness and giddiness; I10 Essential (primary) hypertension; F03.90 Unspecified dementia, unspecified severity, without behavioral disturbance, psychotic disturbance, mood disturbance, and anxiety; Z79.899 Other long term (current) drug therapy; Z51.81 Encounter for therapeutic drug level monitoring
CPT/HCPCS: 36415; 70450; 80053; 82947; 84484; 85025; 85610; 85730; 93005; 99282; 99285

== ENCOUNTER → 2024-11-14 17:33 | Outpatient (BNV) | payer OTHER, SELFPAY | PROVIDERS: Visit Provider Radiology Diagnostic Radiology | DX: R42 Dizziness and giddiness (principal) | CPT/HCPCS: 70450 ==

== ENCOUNTER → 2024-11-14 17:33 | Outpatient (BNV) | payer OTHER, SELFPAY | PROVIDERS: Emergency Provider Emergency Medicine Emergency Medical Services; Visit Provider Internal Medicine | DX: R42 Dizziness and giddiness (principal) | CPT/HCPCS: 93010 ==

== ENCOUNTER 2024-11-14 23:40 | Emergency (ER) | payer OTHER, SELFPAY ==
[2024-11-14 23:51] VITALS: BP 148/73; PULSE 80; RESP 18; O2SAT 97; BMI 28.0
[2024-11-15 00:34] LABS: Glucose, Whole Blood 123 mg/dL (60-115)
[2024-11-15 01:52] VITALS: BP 143/73; PULSE 73; RESP 20; O2SAT 96
--- NOTE | 2024-11-15 03:00 | ED_ITS ---
HPI - General Adult General Chief complaint: Nausea/Vomiting/Diarrhea Stated complaint: Vomiting Time Seen by Provider: 11/15/24 02:53 Source: patient Mode of arrival: EMS Limitations: no limitations History of Present Illness ED Provider: HPI narrative: Patient complaining of anxiety just discharged earlier today came back as feeling anxious unable to sleep feels says her blood pressure is elevated but was 148/73 patient is also saying that she is nauseated and vomiting earlier done in the ER Related Data Home Medications ?Medication ?Instructions ?Recorded ?Confirmed mirtazapine 45 mg tablet 45 mg PO BEDTIME 08/09/20 09/29/24 omeprazole 20 mg tablet,delayed 20 mg PO DAILY@0630 08/09/20 09/29/24 release aspirin 81 mg tablet,delayed 81 mg PO QAM 01/28/24 09/29/24 release bisacodyl 5 mg tablet,delayed 5 mg PO DAILY PRN constipation 01/28/24 09/29/24 release diphenhydramine HCl 25 mg tablet 25 mg PO BEDTIME PRN itch 01/28/24 09/29/24 (Lou-Dryl) ferrous sulfate 325 mg (65 mg 325 mg PO DAILY 01/28/24 09/29/24 iron) tablet (FeroSul) melatonin 10 mg tablet,extended 10 mg PO BEDTIME PRN Insomnia 01/28/24 09/29/24 release multivitamin 1 tab PO QAM 01/28/24 09/29/24 rosuvastatin 20 mg tablet 20 mg PO BEDTIME 01/28/24 09/29/24 trazodone 50 mg tablet 50 mg PO BEDTIME 01/28/24 09/29/24 amlodipine 10 mg tablet 10 mg PO DAILY 02/09/24 09/29/24 acetaminophen 500 mg tablet 500 mg PO Q8H PRN pain 08/09/24 09/29/24 ipratropium bromide 21 mcg (0.03 2 spray intranasal BID 08/09/24 09/29/24 %) nasal spray zolpidem 5 mg tablet 5 mg PO BEDTIME PRN Insomnia 08/09/24 09/29/24 cholecalciferol (vitamin D3) 25 25 mcg PO DAILY 08/20/24 09/29/24 mcg (1,000 unit) tablet meclizine 25 mg tablet 25 mg PO DAILY PRN 09/29/24 09/29/24 Previous Rx's ?Medication ?Instructions ?Recorded metoprolol succinate 50 mg 50 mg PO DAILY #90 tabs 09/28/20 tablet,extended release 24 hr fluticasone propionate 50 2 spray intranasal DAILY #16 grams 09/16/23 mcg/actuation nasal spray,suspension (Flonase Allergy Relief) ondansetron 4 mg disintegrating 4 mg PO Q6H PRN nausea and 04/28/24 tablet vomiting #10 tabs hydroxyzine HCl 25 mg tablet 25 mg PO TID PRN anxiety #6 tabs 08/07/24 clonazepam 0.5 mg tablet 0.5 mg PO TID #180 tabs 08/10/24 gabapentin 100 mg capsule 100 mg PO TID #180 caps 08/10/24 valsartan 160 mg tablet 160 mg PO DAILY #90 tabs 08/20/24 hydroxyzine HCl 25 mg tablet 25 mg PO TID PRN anxiety #20 tabs 09/09/24 miconazole nitrate 2 % vaginal 1 appful vaginal BEDTIME 7 days 10/09/24 cream (Monistat 7) #45 grams nitrofurantoin 100 mg PO Q12H 3 days #6 caps 10/09/24 monohydrate/macrocrystals 100 mg capsule (Macrobid) Allergies Allergy/AdvReac Type Severity Reaction Status Date / Time penicillin G [Penicillin G] Allergy Severe ITCHY/RASH Verified 11/16/24 01:27 Sulfa (Sulfonamide Allergy Severe ITCHY,RASH, Verified 11/16/24 01:27 Antibiotics) rash [Sulfa (Sulfonamides)] trimethoprim [From Bactrim] Allergy Severe HIVES Verified 11/16/24 01:27 Penicillins Allergy Intermediate Hives Verified 11/16/24 01:27 sulfamethoxazole Allergy Mild Hives Verified 11/16/24 01:27 [From Bactrim] Review of Systems Review of Systems: Yes all other systems are reviewed and are negative PMFSH Past Medical History 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) Unable to assess alcohol history related to: Unknown Alcohol intake: never Patient Tobacco Use Status: Never used Tobacco Smoked in Last 30 Days: No Use of substances other than those prescribed or required for medical reasons: No Advance Directives: Yes Advance Directives on File: Yes Advance Directives Date on File: 01/28/24 Do you have a plan to hurt others: No Plan service: No Physical Exam ED Vital Signs: Vital Signs - 24 hr 11/14/24 23:51 11/15/24 01:52 Pulse Rate 80 73 Respiratory Rate 18 20 Blood Pressure 148/73 H 143/73 H Pulse Oximetry 97 96 Oxygen Delivery Method Room Air Room Air BMI result Body Mass Index 28.0 Appearance: Alert. Oriented X3. No acute distress. Anxious Eyes: PERRLA, No Nystagmus ENT: Pharynx normal. Oral Mucosa moist Neck: Normal inspection. Neck supple. CVS: Normal heart rate and rhythm. Pulses normal. Respiratory: No respiratory distress. Equal air entry bilateral, no wheezing/rales/rhonchi Abdomen: Soft and nontender. Bowel sounds are present, no mass palpable, no CVA tenderness Skin: Skin warm and dry. Normal skin color. Normal skin turgor. Extremities: No lower extremity edema. No calf tenderness Neuro: Oriented X 3. No motor deficit. No sensory deficit.No cerebellar signs , cranial nerves II-XII intact Medications Administered Discontinued Medications Generic Name Dose Route Start Last Admin Trade Name Beau PRN Reason Stop Dose Admin Ondansetron HCl 4 mg 11/15/24 03:03 11/15/24 03:16 Ondansetron Odt 4 Mg Tab.Rapdis TRANSLINGU 11/15/24 03:04 4 mg ONCE ONE Administration Medical Decision Making Medical Decision Making [facility] Narrative: Patient's anxiety been here earlier today advised to follow with her PCP patient is given sublingual ondansetron and feeling better Lab Data Labs: Lab Results 11/15/24 Range/Units 00:19 POC Glucose 123 H (60-115) mg/dL Discharge Plan Discharge Clinical Impression: Generalized anxiety disorder with panic attacks, Vomiting Patient Disposition: Home, Self-Care Instructions: Acute Nausea and Vomiting (ED), Anxiety (ED) Additional Instructions: Take medication as prescribed Follow up with your psychiatrist Prescriptions: No Action metoprolol succinate 50 mg tablet extended release 24 hr 50 mg PO DAILY Qty: 90 2RF mirtazapine 45 mg Tablet 45 mg PO BEDTIME omeprazole 20 mg Tablet,Delayed Release (Dr/Ec) 20 mg PO DAILY@0630 fluticasone propionate [Flonase Allergy Relief] 50 mcg/actuation spray,suspension 2 spray intranasal DAILY Qty: 16 0RF Rx Instructions: administer into each nostril hydroxyzine HCl 25 mg tablet 25 mg PO TID PRN (Reason: anxiety) Qty: 6 0RF hydroxyzine HCl 25 mg tablet 25 mg PO TID PRN (Reason: anxiety) Qty: 20 0RF trazodone 50 mg tablet 50 mg PO BEDTIME ferrous sulfate [FeroSul] 325 mg (65 mg iron) tablet 325 mg PO DAILY diphenhydramine HCl [Lou-Dryl] 25 mg tablet 25 mg PO BEDTIME PRN (Reason: itch) bisacodyl 5 mg tablet,delayed release (DR/EC) 5 mg PO DAILY PRN (Reason: constipation) rosuvastatin 20 mg tablet 20 mg PO BEDTIME aspirin 81 mg tablet,delayed release (DR/EC) 81 mg PO QAM multivitamin Tablet 1 tab PO QAM melatonin 10 mg tablet extended release 10 mg PO BEDTIME PRN (Reason: Insomnia) cholecalciferol (vitamin D3) 25 mcg (1,000 unit) tablet 25 mcg PO DAILY ondansetron 4 mg tablet,disintegrating 4 mg PO Q6H PRN (Reason: nausea and vomiting) Qty: 10 0RF acetaminophen 500 mg tablet 500 mg PO Q8H PRN (Reason: pain) zolpidem 5 mg tablet 5 mg PO BEDTIME PRN (Reason: Insomnia) ipratropium bromide 21 mcg (0.03 %) spray,non-aerosol 2 spray intranasal BID clonazepam 0.5 mg Tablet 0.5 mg PO TID Qty: 180 0RF gabapentin 100 mg Capsule 100 mg PO TID Qty: 180 0RF nitrofurantoin monohyd/m-cryst [Macrobid] 100 mg capsule 100 mg PO Q12H 3 Days Qty: 6 0RF Rx Instructions: must administer with a meal/food miconazole nitrate [Monistat 7] 2 % cream 1 appful vaginal BEDTIME 7 Days Qty: 45 0RF valsartan 160 mg tablet 160 mg PO DAILY Qty: 90 1RF amlodipine 10 mg tablet 10 mg PO DAILY meclizine 25 mg tablet 25 mg PO DAILY PRN Interventions: ED Discharge Assessment Last Done: 11/15/24 03:20 Discharge Date/Time: 11/15/24 03:22 Print Language: Greenlandic
[2024-11-15] MEDS: Ondansetron ODT 4 MG TAB.RAPDIS TRANSLINGU (03:16)
[2024-11-15 03:20] VITALS: BP 143/73; PULSE 73; RESP 20; TEMP 36.7; O2SAT 96
== END 2024-11-15 03:22 | disposition home or self-care (01) ==
PROVIDERS: Emergency Provider Internal Medicine
DX: R11.2 Nausea with vomiting, unspecified (principal); F41.9 Anxiety disorder, unspecified; Z79.899 Other long term (current) drug therapy
CPT/HCPCS: 82947; 99282

== ENCOUNTER 2024-11-16 01:09 | Emergency (ER) | payer OTHER, SELFPAY ==
[2024-11-16 01:24] VITALS: BP 152/82; BP 163/58; PULSE 89; PULSE 90; RESP 16; TEMP 36.9; O2SAT 98; BMI 28.0
[2024-11-16] MEDS: hydrOXYzine HCL 25 MG TABLET PO (02:52)
[2024-11-16] MEDS: Acetaminophen 325 MG TABLET 650 MG PO (03:48)
[2024-11-16 03:50] VITALS: BP 159/76; PULSE 88; RESP 18; TEMP 36.6; O2SAT 100
[2024-11-16 04:20] VITALS: BP 181/94; PULSE 92; RESP 16; TEMP 37.1; O2SAT 95
[2024-11-16] MEDS: Metoprolol Tartrate 50 MG TABLET PO (04:23)
[2024-11-16 05:35] VITALS: BP 170/78; PULSE 78; RESP 18; TEMP 37; O2SAT 98
--- NOTE | 2024-11-16 05:41 | ED.GENADULT ---
HPI - General Adult General Chief complaint: General Medical Stated complaint: Anxiety, HTN, nonmedd compliant Time Seen by Provider: 11/16/24 01:57 Source: patient Mode of arrival: ambulatory Limitations: no limitations History of Present Illness ED Provider: HPI narrative: Patient's history of anxiety hypertension been here multiple times was seen 2 times yesterday comes here in his she checked her blood pressure at home was 190 on arrival patient blood pressure was in 150 patient is very very anxious has not medication at home been here almost to 3 times a week for same reasons Related Data Home Medications ?Medication ?Instructions ?Recorded ?Confirmed mirtazapine 45 mg tablet 45 mg PO BEDTIME 08/09/20 09/29/24 omeprazole 20 mg tablet,delayed 20 mg PO DAILY@0630 08/09/20 09/29/24 release aspirin 81 mg tablet,delayed 81 mg PO QAM 01/28/24 09/29/24 release bisacodyl 5 mg tablet,delayed 5 mg PO DAILY PRN constipation 01/28/24 09/29/24 release diphenhydramine HCl 25 mg tablet 25 mg PO BEDTIME PRN itch 01/28/24 09/29/24 (Lou-Dryl) ferrous sulfate 325 mg (65 mg 325 mg PO DAILY 01/28/24 09/29/24 iron) tablet (FeroSul) melatonin 10 mg tablet,extended 10 mg PO BEDTIME PRN Insomnia 01/28/24 09/29/24 release multivitamin 1 tab PO QAM 01/28/24 09/29/24 rosuvastatin 20 mg tablet 20 mg PO BEDTIME 01/28/24 09/29/24 trazodone 50 mg tablet 50 mg PO BEDTIME 01/28/24 09/29/24 amlodipine 10 mg tablet 10 mg PO DAILY 02/09/24 09/29/24 acetaminophen 500 mg tablet 500 mg PO Q8H PRN pain 08/09/24 09/29/24 ipratropium bromide 21 mcg (0.03 2 spray intranasal BID 08/09/24 09/29/24 %) nasal spray zolpidem 5 mg tablet 5 mg PO BEDTIME PRN Insomnia 08/09/24 09/29/24 cholecalciferol (vitamin D3) 25 25 mcg PO DAILY 08/20/24 09/29/24 mcg (1,000 unit) tablet meclizine 25 mg tablet 25 mg PO DAILY PRN 09/29/24 09/29/24 Previous Rx's ?Medication ?Instructions ?Recorded metoprolol succinate 50 mg 50 mg PO DAILY #90 tabs 09/28/20 tablet,extended release 24 hr fluticasone propionate 50 2 spray intranasal DAILY #16 grams 09/16/23 mcg/actuation nasal spray,suspension (Flonase Allergy Relief) ondansetron 4 mg disintegrating 4 mg PO Q6H PRN nausea and 04/28/24 tablet vomiting #10 tabs hydroxyzine HCl 25 mg tablet 25 mg PO TID PRN anxiety #6 tabs 08/07/24 clonazepam 0.5 mg tablet 0.5 mg PO TID #180 tabs 08/10/24 gabapentin 100 mg capsule 100 mg PO TID #180 caps 08/10/24 valsartan 160 mg tablet 160 mg PO DAILY #90 tabs 08/20/24 hydroxyzine HCl 25 mg tablet 25 mg PO TID PRN anxiety #20 tabs 09/09/24 miconazole nitrate 2 % vaginal 1 appful vaginal BEDTIME 7 days 10/09/24 cream (Monistat 7) #45 grams nitrofurantoin 100 mg PO Q12H 3 days #6 caps 10/09/24 monohydrate/macrocrystals 100 mg capsule (Macrobid) Allergies Allergy/AdvReac Type Severity Reaction Status Date / Time penicillin G [Penicillin G] Allergy Severe ITCHY/RASH Verified 11/16/24 01:27 Sulfa (Sulfonamide Allergy Severe ITCHY,RASH, Verified 11/16/24 01:27 Antibiotics) rash [Sulfa (Sulfonamides)] trimethoprim [From Bactrim] Allergy Severe HIVES Verified 11/16/24 01:27 Penicillins Allergy Intermediate Hives Verified 11/16/24 01:27 sulfamethoxazole Allergy Mild Hives Verified 11/16/24 01:27 [From Bactrim] Review of Systems Review of Systems: Yes all other systems are reviewed and are negative PMFSH Past Medical History 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) Unable to assess alcohol history related to: Unknown Alcohol intake: never Patient Tobacco Use Status: Never used Tobacco Smoked in Last 30 Days: No Use of substances other than those prescribed or required for medical reasons: No Advance Directives: Yes Advance Directives on File: Yes Advance Directives Date on File: 01/28/24 Do you have a plan to hurt others: No Plan service: No Physical Exam ED Vital Signs: Vital Signs - 24 hr 11/16/24 01:24 11/16/24 03:50 11/16/24 04:20 Temperature 98.4 F 98 F 98.8 F Pulse Rate 89 88 92 Respiratory Rate 16 18 16 Blood Pressure 152/82 H 159/76 H 181/94 H Pulse Oximetry 98 100 95 Oxygen Delivery Method Room Air Room Air Room Air 11/16/24 05:35 Temperature 98.6 F Pulse Rate 78 Respiratory Rate 18 Blood Pressure 170/78 H Pulse Oximetry 98 Oxygen Delivery Method Room Air BMI result Body Mass Index 28.0 Appearance: Alert. Oriented X3. No acute distress. Anxious ENT: Pharynx normal. Oral Mucosa moist Neck: Normal inspection. Neck supple. CVS: Normal heart rate and rhythm. Pulses normal. Respiratory: No respiratory distress. Equal air entry bilateral, no wheezing/rales/rhonchi Skin: Skin warm and dry. Normal skin color. Normal skin turgor. Extremities: No lower extremity edema. Neuro: Oriented X 3. Medications Administered Discontinued Medications Generic Name Dose Route Start Last Admin Trade Name Freq PRN Reason Stop Dose Admin Acetaminophen 650 mg 11/16/24 03:43 11/16/24 03:48 Acetaminophen 325 Mg Tablet PO 11/16/24 03:44 650 mg ONCE ONE Administration Hydroxyzine HCl 25 mg 11/16/24 02:21 11/16/24 02:52 Hydroxyzine Hcl 25 Mg Tablet PO 11/16/24 02:22 25 mg ONCE ONE Administration Metoprolol Tartrate 50 mg 11/16/24 04:18 11/16/24 04:23 Metoprolol Tartrate 50 Mg Tablet PO 11/16/24 04:19 50 mg ONCE ONE Administration Protocol Medical Decision Making Medical Decision Making MDM Narrative: Patient's anxiety with transient elevated blood pressure repeat blood pressure was much better discharge patient home advised to take around medications Discharge Plan Discharge Clinical Impression: Generalized anxiety disorder with panic attacks, Essential hypertension Patient Disposition: Home, Self-Care Instructions: Generalized Anxiety Disorder (ED), Hypertension (ED) Additional Instructions: Take medication as prescribed by your PCP and therapist Prescriptions: No Action metoprolol succinate 50 mg tablet extended release 24 hr 50 mg PO DAILY Qty: 90 2RF mirtazapine 45 mg Tablet 45 mg PO BEDTIME omeprazole 20 mg Tablet,Delayed Release (Dr/Ec) 20 mg PO DAILY@0630 fluticasone propionate [Flonase Allergy Relief] 50 mcg/actuation spray,suspension 2 spray intranasal DAILY Qty: 16 0RF Rx Instructions: administer into each nostril hydroxyzine HCl 25 mg tablet 25 mg PO TID PRN (Reason: anxiety) Qty: 6 0RF hydroxyzine HCl 25 mg tablet 25 mg PO TID PRN (Reason: anxiety) Qty: 20 0RF trazodone 50 mg tablet 50 mg PO BEDTIME ferrous sulfate [FeroSul] 325 mg (65 mg iron) tablet 325 mg PO DAILY diphenhydramine HCl [Lou-Dryl] 25 mg tablet 25 mg PO BEDTIME PRN (Reason: itch) bisacodyl 5 mg tablet,delayed release (DR/EC) 5 mg PO DAILY PRN (Reason: constipation) rosuvastatin 20 mg tablet 20 mg PO BEDTIME aspirin 81 mg tablet,delayed release (DR/EC) 81 mg PO QAM multivitamin Tablet 1 tab PO QAM melatonin 10 mg tablet extended release 10 mg PO BEDTIME PRN (Reason: Insomnia) cholecalciferol (vitamin D3) 25 mcg (1,000 unit) tablet 25 mcg PO DAILY ondansetron 4 mg tablet,disintegrating 4 mg PO Q6H PRN (Reason: nausea and vomiting) Qty: 10 0RF acetaminophen 500 mg tablet 500 mg PO Q8H PRN (Reason: pain) zolpidem 5 mg tablet 5 mg PO BEDTIME PRN (Reason: Insomnia) ipratropium bromide 21 mcg (0.03 %) spray,non-aerosol 2 spray intranasal BID clonazepam 0.5 mg Tablet 0.5 mg PO TID Qty: 180 0RF gabapentin 100 mg Capsule 100 mg PO TID Qty: 180 0RF nitrofurantoin monohyd/m-cryst [Macrobid] 100 mg capsule 100 mg PO Q12H 3 Days Qty: 6 0RF Rx Instructions: must administer with a meal/food miconazole nitrate [Monistat 7] 2 % cream 1 appful vaginal BEDTIME 7 Days Qty: 45 0RF valsartan 160 mg tablet 160 mg PO DAILY Qty: 90 1RF amlodipine 10 mg tablet 10 mg PO DAILY meclizine 25 mg tablet 25 mg PO DAILY PRN Print Language: Cypriot
[2024-11-16 05:50] VITALS: BP 170/78; PULSE 78; RESP 18; TEMP 37; O2SAT 98
== END 2024-11-16 06:31 | disposition home or self-care (01) ==
PROVIDERS: Emergency Provider Internal Medicine
DX: F41.0 Panic disorder [episodic paroxysmal anxiety] (principal); F41.9 Anxiety disorder, unspecified; I10 Essential (primary) hypertension; Z91.148 Patient's other noncompliance with medication regimen for other reason
CPT/HCPCS: 99283; 99284

== ENCOUNTER 2024-12-14 00:33 | Emergency (ER) | payer OTHER, SELFPAY ==
[2024-12-14 00:45] VITALS: BP 173/80; PULSE 98; O2SAT 96
[2024-12-14 01:11] VITALS: BP 149/72; PULSE 90; RESP 20; TEMP 36.8; O2SAT 96; BMI 28.0
[2024-12-14 01:42] LABS: MANUAL DIFF FLAG NO
[2024-12-14 01:44] LABS: Basophils Absolute Auto 0.1 X10*3/uL (0.0-0.2); Basophils Percent Auto 0.9 % (0-2); Eosinophils Absolute Auto 0.1 X10*3/uL (0.0-0.4); Hematocrit 33.8 % (37.0-47.0); Hemoglobin 11.6 g/dl (12.0-16.0); Imm Gran Abs Auto 0.02 X10*3/uL (0.00-0.03); Imm Gran Pct Auto 0.3 % (0.0-0.4); Lymphocytes Absolute Auto 1.5 X10*3/uL (1.2-4.9); Lymphocytes Percent Auto 22.9 % (20-40); Mean Corpuscular HGB Conc 34.3 g/dl (31.0-35.0); Mean Corpuscular Hemoglobin 28.9 pg (27.0-33.0); Mean Corpuscular Volume 84.1 fL (80.0-98.0); Mean Platelet Volume 8.2 fL (9.4-12.3); Monocytes Absolute Auto 0.5 X10*3/uL (0.1-1.2); Monocytes Percent Auto 7.4 % (2-11); Neutrophils Absolute Auto 4.5 x10*3/uL (2.0-8.3); Neutrophils Percent Auto 67.5 % (45-73); Platelet Count 300 X10*3/uL (160-400); Red Blood Count 4.02 X10*6/uL (4.20-5.50); Red Cell Distribution Width 13.7 % (11.0-16.0); White Blood Count 6.7 X10*3/uL (4.8-10.8)
[2024-12-14 02:08] LABS: Alanine Aminotransferase 16 U/L (0-31); Albumin Level 4.2 g/dL (3.5-5.0); Anion Gap 14 (12-20); Aspartate Amino Transferase 26 U/L (5-31); Bilirubin Total 0.3 mg/dL (0.0-1.0); Blood Urea Nitrogen 26 mg/dL (9-16); Calcium 9.2 mg/dL (8.4-10.2); Carbon Dioxide 25 mmol/L (22-29); Chloride 102 mmol/L (96-108); Creatinine Clr Calc Pharmacy 54.2; Estimated Glomerular Filt Rate 59; Glucose Random 116 mg/dL (60-115); Potassium 4.5 mmol/L (3.3-5.1); Sodium 136 mmol/L (135-145); Total Protein 8.4 g/dL (6.5-8.0)
[2024-12-14 02:20] LABS: Influenza A PCR NEGATIVE (Negative); Influenza B PCR NEGATIVE (Negative); Resp Syncy Virus RNA Qual PCR NEGATIVE (Negative); SARS COV2 PCR INHOUSE NEGATIVE (Negative)
[2024-12-14 02:40] LABS: Alkaline Phosphatase 57 U/L (39-117)
[2024-12-14] MEDS: Acetaminophen 325 MG TABLET 650 MG PO (03:55)
[2024-12-14 05:21] VITALS: BP 132/74; PULSE 86; RESP 18; TEMP 37.1; O2SAT 99
[2024-12-14] MEDS: Meclizine HCl 25 MG TABLET 50 MG PO (05:58)
--- NOTE | 2024-12-14 06:20 | PC.NURSE ---
Pt statinng she needs to go home she has an appointment. MD Briscoe notified.
--- NOTE | 2024-12-14 06:32 | ED_ITS ---
HPI - General Adult General Chief complaint: General Medical Stated complaint: vertigo Time Seen by Provider: 12/14/24 05:36 Source: patient Mode of arrival: ambulatory Limitations: no limitations History of Present Illness ED Provider: Dr. Marta Briscoe HPI narrative: Patient comes to the emergency room complaining of anxiety. Patient states she ran out of her medications. Patient also reports dizziness. Patient explain dizziness as left-sided ear discomfort, denies passing out, denies room spinning, denies lightheadedness Related Data Home Medications ?Medication ?Instructions ?Recorded ?Confirmed mirtazapine 45 mg tablet 45 mg PO BEDTIME 08/09/20 09/29/24 omeprazole 20 mg tablet,delayed 20 mg PO DAILY@0630 08/09/20 09/29/24 release aspirin 81 mg tablet,delayed 81 mg PO QAM 01/28/24 09/29/24 release bisacodyl 5 mg tablet,delayed 5 mg PO DAILY PRN constipation 01/28/24 09/29/24 release diphenhydramine HCl 25 mg tablet 25 mg PO BEDTIME PRN itch 01/28/24 09/29/24 (Lou-Dryl) ferrous sulfate 325 mg (65 mg 325 mg PO DAILY 01/28/24 09/29/24 iron) tablet (FeroSul) melatonin 10 mg tablet,extended 10 mg PO BEDTIME PRN Insomnia 01/28/24 09/29/24 release multivitamin 1 tab PO QAM 01/28/24 09/29/24 rosuvastatin 20 mg tablet 20 mg PO BEDTIME 01/28/24 09/29/24 trazodone 50 mg tablet 50 mg PO BEDTIME 01/28/24 09/29/24 amlodipine 10 mg tablet 10 mg PO DAILY 02/09/24 09/29/24 acetaminophen 500 mg tablet 500 mg PO Q8H PRN pain 08/09/24 09/29/24 ipratropium bromide 21 mcg (0.03 2 spray intranasal BID 08/09/24 09/29/24 %) nasal spray zolpidem 5 mg tablet 5 mg PO BEDTIME PRN Insomnia 08/09/24 09/29/24 cholecalciferol (vitamin D3) 25 25 mcg PO DAILY 08/20/24 09/29/24 mcg (1,000 unit) tablet meclizine 25 mg tablet 25 mg PO DAILY PRN 09/29/24 09/29/24 Previous Rx's ?Medication ?Instructions ?Recorded metoprolol succinate 50 mg 50 mg PO DAILY #90 tabs 09/28/20 tablet,extended release 24 hr fluticasone propionate 50 2 spray intranasal DAILY #16 grams 09/16/23 mcg/actuation nasal spray,suspension (Flonase Allergy Relief) ondansetron 4 mg disintegrating 4 mg PO Q6H PRN nausea and 04/28/24 tablet vomiting #10 tabs hydroxyzine HCl 25 mg tablet 25 mg PO TID PRN anxiety #6 tabs 08/07/24 clonazepam 0.5 mg tablet 0.5 mg PO TID #180 tabs 08/10/24 gabapentin 100 mg capsule 100 mg PO TID #180 caps 08/10/24 valsartan 160 mg tablet 160 mg PO DAILY #90 tabs 08/20/24 hydroxyzine HCl 25 mg tablet 25 mg PO TID PRN anxiety #20 tabs 09/09/24 miconazole nitrate 2 % vaginal 1 appful vaginal BEDTIME 7 days 10/09/24 cream (Monistat 7) #45 grams nitrofurantoin 100 mg PO Q12H 3 days #6 caps 10/09/24 monohydrate/macrocrystals 100 mg capsule (Macrobid) Allergies Allergy/AdvReac Type Severity Reaction Status Date / Time penicillin G [Penicillin G] Allergy Severe ITCHY/RASH Verified 12/14/24 01:16 Sulfa (Sulfonamide Allergy Severe ITCHY,RASH, Verified 12/14/24 01:16 Antibiotics) rash [Sulfa (Sulfonamides)] trimethoprim [From Bactrim] Allergy Severe HIVES Verified 12/14/24 01:16 Penicillins Allergy Intermediate Hives Verified 12/14/24 01:16 sulfamethoxazole Allergy Mild Hives Verified 12/14/24 01:16 [From Bactrim] Review of Systems 2 Review of Systems: Constitutional : No Weight loss, No Fever, No Chills, No Night Sweats, No Fatigue, No Malaise ENT/Mouth : No Hearing loss, No Ear Pain, No Nasal Congestion, No Sinus Pain, No Hoarseness, No sore throat, No Rhinorrhea, No Swallowing Difficulty Eyes: No Eye Pain, No Swelling, No Redness, No Foreign Body, No Discharge, No Vision Changes Cardiovascular : No Chest Pain, No SOB, No Dyspnea on Exertion, No Orthopnea, No Edema, No Palpitations Respiratory : No Cough, No Sputum, No Wheezing, No Smoke Exposure, No Dyspnea Gastrointestinal : No Nausea, No Vomiting, No Diarrhea, No Constipation, No abdominal Pain, No Hematochezia, No Melena Genitourinary : no irregular bleeding, No Dysuria, No Urinary Frequency, No Hematuria, No Urinary Incontinence, No Urgency, No Flank Pain, No Urinary Flow Changes, No Hesitancy Musculoskeletal : No joint pain, No Myalgias, No Joint Swelling Skin : No Skin Lesions, No rash Neuro : No Weakness, No Numbness, No Paresthesias, No Loss of Consciousness, complaining of dizziness Psych : Complaining of anxiety No Depression, No SI/HI/AH/VH, No Social Issues, Heme/Lymph: No Bruising, No Bleeding,No Lymphadenopathy Endocrine : No Polyuria, No Polydipsia, No Temperature Intolerance PMFSH Past Medical History 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) Unable to assess alcohol history related to: Unknown Alcohol intake: never Patient Tobacco Use Status: Never used Tobacco Smoked in Last 30 Days: No Use of substances other than those prescribed or required for medical reasons: No Advance Directives: Yes Advance Directives on File: Yes Advance Directives Date on File: 01/28/24 service: No Physical Exam ED Vital Signs: Vital Signs - 24 hr 12/14/24 01:11 12/14/24 05:21 Temperature 98.2 F 98.7 F Pulse Rate 90 86 Respiratory Rate 20 18 Blood Pressure 149/72 H 132/74 Pulse Oximetry 96 99 Oxygen Delivery Method Room Air Room Air BMI result Body Mass Index 28.0 Const Other: Appearance: Alert. Oriented X3. No acute distress. Eyes: Pupils equal, round and reactive to light. ENT: Pharynx normal. Neck: Normal inspection. Neck supple. No lymph nodes noted. No crepitus CVS: Normal heart rate and rhythm. Pulses normal. Normal S1 and S2 Respiratory: No respiratory distress. Breath sounds normal. No Wheezing. No rales Abdomen: Soft and nontender. No rigidity. No distention. Skin: Skin warm and dry. Normal skin color. Normal skin turgor. Extremities: No lower extremity edema. No Lacerations. No Rash Neuro: Oriented X 3. No motor deficit. No sensory deficit. Moving all extremities. No slurred speech. CN 2 through 12 grossly intact Psych: calm, cooperative, normal affect Medications Administered Discontinued Medications Generic Name Dose Route Start Last Admin Trade Name Freq PRN Reason Stop Dose Admin Acetaminophen 650 mg 12/14/24 03:37 12/14/24 03:55 Acetaminophen 325 Mg Tablet PO 12/14/24 03:38 650 mg ONCE ONE Administration Meclizine HCl 50 mg 12/14/24 05:46 12/14/24 05:58 Meclizine Hcl 25 Mg Tablet PO 12/14/24 05:47 50 mg ONCE ONE Administration Medical Decision Making Medical Decision Making [facility] Narrative: My interpretation of labs, normal hematology and chemistry Patient states that she is not really dizzy, patient requesting medication for anxiety. Patient was given a dose of Atarax, patient states that she feels well for discharge. Lab Data [facility] Lab Attestation statement: I reviewed the patient's lab results. 12/14/24 01:36 12/14/24 01:36 Labs: Lab Results 12/14/24 Range/Units 01:36 WBC 6.7 (4.8-10.8) X10*3/uL RBC 4.02 L (4.20-5.50) X10*6/uL Hgb 11.6 L (12.0-16.0) g/dl Hct 33.8 L (37.0-47.0) % MCV 84.1 (80.0-98.0) fL MCH 28.9 (27.0-33.0) pg MCHC 34.3 (31.0-35.0) g/dl RDW 13.7 (11.0-16.0) % Plt Count 300 (160-400) X10*3/uL MPV 8.2 L (9.4-12.3) fL Immature Gran % (Auto) 0.3 (0.0-0.4) % Neut % (Auto) 67.5 (45-73) % Lymph % (Auto) 22.9 (20-40) % [place] % (Auto) 7.4 (2-11) % Eos % (Auto) 1.0 (0-4) % Baso % (Auto) 0.9 (0-2) % Lymph # (Auto) 1.5 (1.2-4.9) X10*3/uL [place] # (Auto) 0.5 (0.1-1.2) X10*3/uL Eos # (Auto) 0.1 (0.0-0.4) X10*3/uL Baso # (Auto) 0.1 (0.0-0.2) X10*3/uL Abs Immat Gran (auto) 0.02 (0.00-0.03) X10*3/uL Absolute Neuts (auto) 4.5 (2.0-8.3) x10*3/uL Absolute Nucleated RBC 0.000 (0.0-0.012) X10*3/uL Nucleated RBC % (auto) 0.0 (0.0-0.2) /100WBC Sodium 136 (135-145) mmol/L Potassium 4.5 (3.3-5.1) mmol/L Chloride 102 (96-108) mmol/L Carbon Dioxide 25 (22-29) mmol/L Anion Gap 14 (12-20) BUN 26 H (9-16) mg/dL Creatinine 0.92 (0.5-1.4) mg/dL Estim Creat Clear Calc 54.2 Estimated GFR 59 Random Glucose 116 H (60-115) mg/dL Calcium 9.2 (8.4-10.2) mg/dL Total Bilirubin 0.3 (0.0-1.0) mg/dL AST 26 (5-31) U/L ALT 16 (0-31) U/L Alkaline Phosphatase 57 (39-117) U/L Total Protein 8.4 H (6.5-8.0) g/dL Albumin 4.2 (3.5-5.0) g/dL Influenza Type A (PCR) NEGATIVE (Negative) Influenza Type B (PCR) NEGATIVE (Negative) RSV RNA Qual (PCR) NEGATIVE (Negative) SARS-CoV-2 RNA (RT-PCR) NEGATIVE (Negative) Discharge Plan Discharge Clinical Impression: Anxiety Patient Disposition: Home, Self-Care Instructions: Anxiety (ED) Additional Instructions: Please follow-up with your primary care physician tomorrow. If you have any worsening or new symptoms, please return to the emergency room or call 911 Prescriptions: No Action metoprolol succinate 50 mg tablet extended release 24 hr 50 mg PO DAILY Qty: 90 2RF mirtazapine 45 mg Tablet 45 mg PO BEDTIME omeprazole 20 mg Tablet,Delayed Release (Dr/Ec) 20 mg PO DAILY@0630 fluticasone propionate [Flonase Allergy Relief] 50 mcg/actuation spray,suspension 2 spray intranasal DAILY Qty: 16 0RF Rx Instructions: administer into each nostril hydroxyzine HCl 25 mg tablet 25 mg PO TID PRN (Reason: anxiety) Qty: 6 0RF hydroxyzine HCl 25 mg tablet 25 mg PO TID PRN (Reason: anxiety) Qty: 20 0RF trazodone 50 mg tablet 50 mg PO BEDTIME ferrous sulfate [FeroSul] 325 mg (65 mg iron) tablet 325 mg PO DAILY diphenhydramine HCl [Lou-Dryl] 25 mg tablet 25 mg PO BEDTIME PRN (Reason: itch) bisacodyl 5 mg tablet,delayed release (DR/EC) 5 mg PO DAILY PRN (Reason: constipation) rosuvastatin 20 mg tablet 20 mg PO BEDTIME aspirin 81 mg tablet,delayed release (DR/EC) 81 mg PO QAM multivitamin Tablet 1 tab PO QAM melatonin 10 mg tablet extended release 10 mg PO BEDTIME PRN (Reason: Insomnia) cholecalciferol (vitamin D3) 25 mcg (1,000 unit) tablet 25 mcg PO DAILY ondansetron 4 mg tablet,disintegrating 4 mg PO Q6H PRN (Reason: nausea and vomiting) Qty: 10 0RF acetaminophen 500 mg tablet 500 mg PO Q8H PRN (Reason: pain) zolpidem 5 mg tablet 5 mg PO BEDTIME PRN (Reason: Insomnia) ipratropium bromide 21 mcg (0.03 %) spray,non-aerosol 2 spray intranasal BID clonazepam 0.5 mg Tablet 0.5 mg PO TID Qty: 180 0RF gabapentin 100 mg Capsule 100 mg PO TID Qty: 180 0RF nitrofurantoin monohyd/m-cryst [Macrobid] 100 mg capsule 100 mg PO Q12H 3 Days Qty: 6 0RF Rx Instructions: must administer with a meal/food miconazole nitrate [Monistat 7] 2 % cream 1 appful vaginal BEDTIME 7 Days Qty: 45 0RF valsartan 160 mg tablet 160 mg PO DAILY Qty: 90 1RF amlodipine 10 mg tablet 10 mg PO DAILY meclizine 25 mg tablet 25 mg PO DAILY PRN Discharge Date/Time: 12/14/24 06:30 Print Language: Moroccan
== END 2024-12-14 06:30 | disposition home or self-care (01) ==
PROVIDERS: Emergency Provider Emergency Medicine
DX: F41.9 Anxiety disorder, unspecified (principal); R42 Dizziness and giddiness; H92.02 Otalgia, left ear; Z03.818 Encounter for observation for suspected exposure to other biological agents ruled out; Z79.899 Other long term (current) drug therapy
CPT/HCPCS: 0241U; 80053; 85025; 99283; 99284

== ENCOUNTER 2025-01-01 00:19 | Emergency (ER) | payer OTHER, SELFPAY ==
[2025-01-01 00:21] VITALS: BP 170/90; PULSE 90; O2SAT 95
[2025-01-01 00:25] VITALS: BP 123/63; PULSE 82; RESP 20; TEMP 37.2; O2SAT 95; BMI 28.0
[2025-01-01 01:24] LABS: Appearance Urine Clear; Color Urine Yellow; Glucose Urine UA Negative (Negative); Leukocyte Esterase Urine Moderate (2+) (Negative); Nitrite Urine Negative (Negative); PH 5.5 (5.0-9.0); Specific Gravity - Urine 1.025 (1.005-1.025); UMIC TRIGGER UACC YES; Urine Blood Negative (Negative); Urine Ketones Negative (Negative); Urine Protein Trace mg/dL (Neg-Trace)
[2025-01-01 01:38] LABS: Bacteria Urine None Seen (None Seen); UACC Culture Trigger YES; WBC Urine 21-50 /HPF (0-5)
[2025-01-01 01:39] LABS: RBC Urine 0-2 /HPF (0-2)
[2025-01-01 02:12] VITALS: BP 135/72; PULSE 78; RESP 16; TEMP 36.7; O2SAT 97
[2025-01-01 03:14] VITALS: BP 147/86; PULSE 85; RESP 18; TEMP 36.7; O2SAT 95
--- NOTE | 2025-01-01 03:22 | ED.FEMALEGU ---
HPI - Female Genitourinary General Chief complaint: Urogenital-Female Stated complaint: Vagina pain x2 weeks unsure why, A&O x4 Time Seen by Provider: 01/01/25 03:07 Source: patient Mode of arrival: ambulatory Limitations: no limitations History of Present Illness ED Provider: Dr. Marta Briscoe HPI Narrative: Patient comes to the emergency room complaining of 2-3 weeks of pain with urination and vaginal pain. Patient denies abdominal pain, denies flank pain, denies fever chills. Denies any nausea vomiting or diarrhea. Related Data Home Medications ?Medication ?Instructions ?Recorded ?Confirmed mirtazapine 45 mg tablet 45 mg PO BEDTIME 08/09/20 09/29/24 omeprazole 20 mg tablet,delayed 20 mg PO DAILY@0630 08/09/20 09/29/24 release aspirin 81 mg tablet,delayed 81 mg PO QAM 01/28/24 09/29/24 release bisacodyl 5 mg tablet,delayed 5 mg PO DAILY PRN constipation 01/28/24 09/29/24 release diphenhydramine HCl 25 mg tablet 25 mg PO BEDTIME PRN itch 01/28/24 09/29/24 (Lou-Dryl) ferrous sulfate 325 mg (65 mg 325 mg PO DAILY 01/28/24 09/29/24 iron) tablet (FeroSul) melatonin 10 mg tablet,extended 10 mg PO BEDTIME PRN Insomnia 01/28/24 09/29/24 release multivitamin 1 tab PO QAM 01/28/24 09/29/24 rosuvastatin 20 mg tablet 20 mg PO BEDTIME 01/28/24 09/29/24 trazodone 50 mg tablet 50 mg PO BEDTIME 01/28/24 09/29/24 amlodipine 10 mg tablet 10 mg PO DAILY 02/09/24 09/29/24 acetaminophen 500 mg tablet 500 mg PO Q8H PRN pain 08/09/24 09/29/24 ipratropium bromide 21 mcg (0.03 2 spray intranasal BID 08/09/24 09/29/24 %) nasal spray zolpidem 5 mg tablet 5 mg PO BEDTIME PRN Insomnia 08/09/24 09/29/24 cholecalciferol (vitamin D3) 25 25 mcg PO DAILY 08/20/24 09/29/24 mcg (1,000 unit) tablet meclizine 25 mg tablet 25 mg PO DAILY PRN 09/29/24 09/29/24 Previous Rx's ?Medication ?Instructions ?Recorded metoprolol succinate 50 mg 50 mg PO DAILY #90 tabs 09/28/20 tablet,extended release 24 hr fluticasone propionate 50 2 spray intranasal DAILY #16 grams 09/16/23 mcg/actuation nasal spray,suspension (Flonase Allergy Relief) ondansetron 4 mg disintegrating 4 mg PO Q6H PRN nausea and 04/28/24 tablet vomiting #10 tabs hydroxyzine HCl 25 mg tablet 25 mg PO TID PRN anxiety #6 tabs 08/07/24 clonazepam 0.5 mg tablet 0.5 mg PO TID #180 tabs 08/10/24 gabapentin 100 mg capsule 100 mg PO TID #180 caps 08/10/24 valsartan 160 mg tablet 160 mg PO DAILY #90 tabs 08/20/24 hydroxyzine HCl 25 mg tablet 25 mg PO TID PRN anxiety #20 tabs 09/09/24 miconazole nitrate 2 % vaginal 1 appful vaginal BEDTIME 7 days 10/09/24 cream (Monistat 7) #45 grams nitrofurantoin 100 mg PO Q12H 3 days #6 caps 10/09/24 monohydrate/macrocrystals 100 mg capsule (Macrobid) miconazole nitrate 2 % topical 1 appl topical BID #28 grams 01/01/25 cream Allergies Allergy/AdvReac Type Severity Reaction Status Date / Time penicillin G [Penicillin G] Allergy Severe ITCHY/RASH Verified 01/01/25 00:27 Sulfa (Sulfonamide Allergy Severe ITCHY,RASH, Verified 01/01/25 00:27 Antibiotics) rash [Sulfa (Sulfonamides)] trimethoprim [From Bactrim] Allergy Severe HIVES Verified 01/01/25 00:27 Penicillins Allergy Intermediate Hives Verified 01/01/25 00:27 sulfamethoxazole Allergy Mild Hives Verified 01/01/25 00:27 [From Bactrim] Review of Systems Review of Systems: Constitutional : No Weight loss, No Fever, No Chills, No Night Sweats, No Fatigue, No Malaise ENT/Mouth : No Hearing loss, No Ear Pain, No Nasal Congestion, No Sinus Pain, No Hoarseness, No sore throat, No Rhinorrhea, No Swallowing Difficulty Eyes: No Eye Pain, No Swelling, No Redness, No Foreign Body, No Discharge, No Vision Changes Cardiovascular : No Chest Pain, No SOB, No Dyspnea on Exertion, No Orthopnea, No Edema, No Palpitations Respiratory : No Cough, No Sputum, No Wheezing, No Smoke Exposure, No Dyspnea Gastrointestinal : No Nausea, No Vomiting, No Diarrhea, No Constipation, No abdominal Pain, No Hematochezia, No Melena Genitourinary : Complaining of vaginal labial irritation and pain, complaining of dysuria, No Urinary Frequency, No Hematuria, No Urinary Incontinence, No Urgency, No Flank Pain, No Urinary Flow Changes, No Hesitancy Musculoskeletal : No joint pain, No Myalgias, No Joint Swelling Skin : No Skin Lesions, No rash Neuro : No Weakness, No Numbness, No Paresthesias, No Loss of Consciousness, No Dizziness, No Headache Psych : No Anxiety/Panic, No Depression, No SI/HI/AH/VH, No Social Issues, Heme/Lymph: No Bruising, No Bleeding,No Lymphadenopathy Endocrine : No Polyuria, No Polydipsia, No Temperature Intolerance [facility] Past Medical History 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) Unable to assess alcohol history related to: Unknown Alcohol intake: never Patient Tobacco Use Status: Never used Tobacco Smoked in Last 30 Days: No Use of substances other than those prescribed or required for medical reasons: No Advance Directives: Yes Advance Directives on File: Yes Advance Directives Date on File: 01/28/24 service: No Physical Exam Vital Signs: Vital Signs: Last Vital Signs Temp 98.1 F 01/01/25 03:14 Pulse 85 01/01/25 03:14 Resp 18 01/01/25 03:14 BP 147/86 H 01/01/25 03:14 Pulse Ox 95 01/01/25 03:14 O2 Del Method Room Air 01/01/25 03:14 BMI result Body Mass Index 28.0 Const: Other: Appearance: Alert. Oriented X3. No acute distress. Eyes: Pupils equal, round and reactive to light. ENT: Pharynx normal. Neck: Normal inspection. Neck supple. No lymph nodes noted. No crepitus CVS: Normal heart rate and rhythm. Pulses normal. Normal S1 and S2 Respiratory: No respiratory distress. Breath sounds normal. No Wheezing. No rales Abdomen: Soft and nontender. No rigidity. No distention. : Vaginal irritation, candidiasis in labia majora Skin: Skin warm and dry. Normal skin color. Normal skin turgor. Extremities: No lower extremity edema. No Lacerations. No Rash Neuro: Oriented X 3. No motor deficit. No sensory deficit. Moving all extremities. No slurred speech. CN 2 through 12 grossly intact Psych: calm, cooperative, normal affect Medical Decision Making Medical Decision Making MDM Narrative: Urinalysis at baseline, negative for UTI. Physical exam positive for genital candidiasis. Lab Data Labs: Lab Results 01/01/25 Range/Units 00:44 Urine Color Yellow Urine Appearance Clear Urine pH 5.5 (5.0-9.0) Ur Specific [place] 1.025 (1.005-1.025) Urine Protein Trace (Neg-Trace) mg/dL Urine Glucose (UA) Negative (Negative) mg/dL Urine Ketones Negative (Negative) mg/dL Urine Blood Negative (Negative) Urine Nitrite Negative (Negative) Ur Leukocyte Esterase Moderate (2+) H (Negative) Urine RBC 0-2 (0-2) /HPF Urine WBC 21-50 H (0-5) /HPF Ur Squamous Epith Cells 6-10 (0-2) /HPF Urine Bacteria None Seen (None Seen) Hyaline Casts 3-5 (0-2) /LPF Discharge Plan Discharge Clinical Impression: Candidiasis, vagina Patient Disposition: Home, Self-Care Instructions: Yeast Infection (ED) Additional Instructions: Please follow-up with your primary care physician tomorrow. If you have any worsening or new symptoms, please return to the emergency room or call 911 Prescriptions: New miconazole nitrate 2 % cream 1 appl topical BID Qty: 28 0RF No Action metoprolol succinate 50 mg tablet extended release 24 hr 50 mg PO DAILY Qty: 90 2RF mirtazapine 45 mg Tablet 45 mg PO BEDTIME omeprazole 20 mg Tablet,Delayed Release (Dr/Ec) 20 mg PO DAILY@0630 fluticasone propionate [Flonase Allergy Relief] 50 mcg/actuation spray,suspension 2 spray intranasal DAILY Qty: 16 0RF Rx Instructions: administer into each nostril hydroxyzine HCl 25 mg tablet 25 mg PO TID PRN (Reason: anxiety) Qty: 6 0RF hydroxyzine HCl 25 mg tablet 25 mg PO TID PRN (Reason: anxiety) Qty: 20 0RF trazodone 50 mg tablet 50 mg PO BEDTIME ferrous sulfate [FeroSul] 325 mg (65 mg iron) tablet 325 mg PO DAILY diphenhydramine HCl [Lou-Dryl] 25 mg tablet 25 mg PO BEDTIME PRN (Reason: itch) bisacodyl 5 mg tablet,delayed release (DR/EC) 5 mg PO DAILY PRN (Reason: constipation) rosuvastatin 20 mg tablet 20 mg PO BEDTIME aspirin 81 mg tablet,delayed release (DR/EC) 81 mg PO QAM multivitamin Tablet 1 tab PO QAM melatonin 10 mg tablet extended release 10 mg PO BEDTIME PRN (Reason: Insomnia) cholecalciferol (vitamin D3) 25 mcg (1,000 unit) tablet 25 mcg PO DAILY ondansetron 4 mg tablet,disintegrating 4 mg PO Q6H PRN (Reason: nausea and vomiting) Qty: 10 0RF acetaminophen 500 mg tablet 500 mg PO Q8H PRN (Reason: pain) zolpidem 5 mg tablet 5 mg PO BEDTIME PRN (Reason: Insomnia) ipratropium bromide 21 mcg (0.03 %) spray,non-aerosol 2 spray intranasal BID clonazepam 0.5 mg Tablet 0.5 mg PO TID Qty: 180 0RF gabapentin 100 mg Capsule 100 mg PO TID Qty: 180 0RF nitrofurantoin monohyd/m-cryst [Macrobid] 100 mg capsule 100 mg PO Q12H 3 Days Qty: 6 0RF Rx Instructions: must administer with a meal/food miconazole nitrate [Monistat 7] 2 % cream 1 appful vaginal BEDTIME 7 Days Qty: 45 0RF valsartan 160 mg tablet 160 mg PO DAILY Qty: 90 1RF amlodipine 10 mg tablet 10 mg PO DAILY meclizine 25 mg tablet 25 mg PO DAILY PRN Print Language: Taiwanese
[2025-01-01 03:38] VITALS: BP 147/86; PULSE 85; RESP 18; TEMP 36.7; O2SAT 95
== END 2025-01-01 03:39 | disposition home or self-care (01) ==
PROVIDERS: Emergency Provider Emergency Medicine; PCP Internal Medicine Geriatric Medicine
DX: B37.31 Acute candidiasis of vulva and vagina (principal); R10.2 Pelvic and perineal pain; I10 Essential (primary) hypertension; Z79.899 Other long term (current) drug therapy
CPT/HCPCS: 81001; 87086; 99283; 99284

== ENCOUNTER 2025-01-18 01:01 | Emergency (ER) | payer OTHER, SELFPAY ==
[2025-01-18 01:14] VITALS: BP 145/89; BP 148/85; PULSE 100; RESP 18; TEMP 36.6; O2SAT 98; BMI 31.6
[2025-01-18 02:10] LABS: IDNOW Serial# 6674DD1D; Strep A Nucleic Acid Negative (Negative)
[2025-01-18 02:33] LABS: Influenza A PCR NEGATIVE (Negative); Influenza B PCR NEGATIVE (Negative); Resp Syncy Virus RNA Qual PCR NEGATIVE (Negative); SARS COV2 PCR INHOUSE NEGATIVE (Negative)
--- OUTSIDE RECORDS SUMMARY | 2025-01-18 02:52 | XMS_ITS | Encounter Summary ---
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 Manufactured Buildings Supervisor Name Role Phone Name, Nitin PIKE Primary Care Provider [phone] Reason for Visit * Reason Comments Med Refill Encounter Details Date Type Department Care Team ([facility] st Contact Info) Description 04/01/2024 Refill [facility] [address], [place] [id number] Name, MD Nitin [address] [place] [address] Rash Social History Tobacco Use Types Packs/Day Years Used Date Smoking Tobacco: Never Passive Smoke Exposure: Never Smokeless Tobacco: Never Alcohol Use Standard Drinks/Week Comments Never 0 (1 standard drink = 0.6 oz pur e alcohol) Depression Answer Date Recorded Patient Health Questionnaire-9 Score 6 02/13/2024 Patient Health Questionnaire-9 Score 6 02/13/2024 Last PHQ-9: Questionnaire Data Not on file 0 02/13/2024 Housing Stability Answer Date Recorded What is your housing situation today? I have claus rawls 08/25/[address] you li ve. Do you have problems with any of the following? None of the above 08/25/2023 Food Insecurity Answer Date Recorded Within the past 12 months, y ou worried that your food would run out before you got money to buy more: Never True 08/25/2023 Within the past 12 months,th e food you bought just didn't last and you didn't have enough money to get more: Never True Transportation Answer Date Recorded In the past 12 months, has l ack of transportation kept you from medical appts, meetings, work or from getting things needed for daily living? No 08/25/2023 Utilities Answer Date Recorded In the past 12 months, has t he electric, gas, oil or water company threatened to shut off services in your home? Yes 08/19/2023 Depression Answer Date Recorded Patient Health Questionnaire-2 Score 3 02/13/2024 Comments Unknown Sex and Gender Information Value Date Recorded Sex Assigned at Female 09/09/2022 10:14 AM EDT Legal Sex Female 10:14 AM EDT Gender Identity Female 04/01/2023 9:37 AM EDT Sexual Orientation Choose not to disclose 2021 10:14 AM EDT documented as of this encounter Plan of Treatment Upcoming Encounters Date Type Department Care Team (Late st Contact Info) Description 04/29/2025 10:00 AM EDT Office Visit [facility] [address] [place] [id number] Name, MD Nitin [address] [place] [id number] documented as of this encounter Visit Diagnoses Diagnosis Rash Rash and other nonspecific skin eruption documented in this encounter Additional Health Concerns Assessment Noted Time PHQ-9 Depression Total Score: 6 02/13/20 9:14 AM EDT documented as of this encounter Care Teams Manufactured Buildings Supervisor Relationship Specialty Start Date End Date NameNitin MD [address] [place] [id number] PCP - General Family Medicine 08/26/17 [facility] 09/01/24 documented as of this encounter
--- OUTSIDE RECORDS SUMMARY | 2025-01-18 02:52 | XMS_ITS | Clinical Summary ---
Author Organization [facility] Facility Address [address] [address] Care Team Providers Care Call Center Supervisor Name Role Phone Name, Nitin PIKE Primary Care Provider [phone] Allergies Active Allergy Reactions Criticality Noted Date Comments Clindamycin 04/05/2016 Other reaction(s): Diarrhea Penicillins 04/01/2023 Sulfa Antibiotics 04/01/2023 Sulfamethoxazole-Trimethopri m 04/01/2023 Sulfur Rash Low 03/17/2023 Trimethoprim Hives High 02/24/2023 Medications zolpidem (AMBIEN) 5 MG tablet 3 Active sertraline (ZOLOFT) 100 MG tablet 3 Active rosuvastatin (CRESTOR) 20 MG tablet Take 20 mg by mouth at bed time 3 Active omeprazole (PriLOSEC) [address] capsule TAKE 1 CAPSULE BY MOUTH EVERY MORNING 1 HOUR BEFORE BREAKFAST 3 Active neomycin-polymy ludwig-hydrocortis one (CORTISPORIN) otic solution USE 5 DROPS IN THE LEFT EAR TWICE DAILY 3 Active Multiple Vitamin (Multivitamin) tablet Take 1 tablet by mouth 3 Active mirtazapine (REMERON) 45 MG tablet 3 Active metoprolol succinate XL (TOPROL XL) 50 MG 24 hr tablet Take 50 mg by mouth 3 Active HM Melatonin 10 MG tablet controlled-rele ase Take 1 tablet by mouth at night if needed 3 Active loratadine (CLARITIN) 10 MG tablet Take 10 mg by mouth 1 (one) time each day 3 Active meclizine (ANTIVERT) 25 MG tablet Take 25 mg by mouth 1 (one) time each day if needed 3 Active lisinopril 40 MG tablet Take 40 mg by mouth at bed time 3 Active hydrOXYzine (VISTARIL) 25 MG capsule TAKE 1 CAPSULE BY MOUTH FOUR TIMES DAILY NEEDED FOR ANXIETY 3 Active fluticasone (FLONASE) 50 MCG/ACT nasal spray USE 1-2 SPRAYS IN EACH NOSTRIL EVERY MORNING 3 Active FeroSul 325 (65 Fe) MG tablet 3 Active doxycycline (VIBRAMYCIN) 100 MG capsule TAKE 1 CAPSULE BY MOUTH TWICE DAILY x5d/ TAKE WITH 8 OUNCES WATER. Do not lie down for 30 minutes after taking 3 Active diphenhydrAMINE (BENADRYL) 25 MG capsule TAKE 1-2 CAPSULES ONCE DAILY NEEDED FOR ITCHING 3 Active cholecalciferol (VITAMIN D-3) 25 MCG (1000 UT) tablet TAKE 1 TABLET BY MOUTH TWICE DAILY IN THE MORNING AND AT BEDTIME 3 Active amLODIPine (NORVASC) 5 MG tablet Take 5 mg by mouth 3 Active Aspirin Adult Low Strength 81 MG EC tablet 3 Active azithromycin (ZITHROMAX) 250 MG tablet TAKE 2 TABLETS BY MOUTH ON DAY 1, THEN TAKE 1 TABLET DAILY ON DAYS 2-5 3 Active busPIRone (BUSPAR) 15 MG tablet TAKE 1 TABLET BY MOUTH AT NOON FOR 5 DAYS (WITH TWICE DAILY DOSE) 3 Active ALPRAZolam (XANAX) 0.25 MG tablet 3 Active ALPRAZolam (XANAX) 0.5 MG tablet Take 0.5 mg by mouth 4 Active Active Problems Problem Noted Date Diagnosed Date Essential (primary) hypertension 04/01/2023 Prediabetes 04/01/2023 Stage 3a chronic kidney disease 04/01/2023 Headache 01/02/2023 Overview (04/01/2023): Last Assessment & Plan: Migrane like headache. Patient on chronic BZO, will trial excedrin & reglan for her symptoms. Recommended f/u with PCP. Head CT in ED w/o acute process. Patient was in a hurry to leave given she had another appt. Anxiety 12/19/2022 Overview (04/01/2023): Last Assessment & Plan: Sxs anxiety attack, not a panic attack. Counseled re relaxation techniques, breathing, visualization etc. Verify with [facility] re med administration as patient should have enough alprazolam until tomorrow. Pharmacy will be able to deliver next refill then. Add Buspar at noon time, continue bid. Counseled to discuss with MH provider re anxiety. Reassurance re IFG, RBS is wnl Generalized anxiety disorder 12/18/2022 Lipid above reference range 12/30/2018 Chronic otitis media 11/13/2018 Vertigo 11/19/2017 Paroxysmal supraventricular tachycardia 10/12/20 13 Irritable bowel syndrome with constipation 09/30 Depressive disorder 05/14/2012 Degeneration of lumbosacral intervertebral disc 05/14/2012 Immunizations Name Administration Dates Next Due Influenza Split 07/19/2013,08/04/2012 Influenza Split High Dose Preservative Free IM 0 08/05/2017 Influenza Vaccine, Quadrivalent, Adjuvanted 07/11 Influenza, Quadrivalent, With Preservative 08/02,08/28/2015 Influenza, Recombinant, Quadrivalent, Pf 020 Influenza, Trivalent, Adjuvanted 07/06/2019,0902/2018 Influenza, Unspecified 07/26/2022 Pfizer SARS-COV-2 08/22/2022 Pneumococcal Conjugate 13-Valent 06/08/2015 Pneumococcal Polysaccharide 07/21/2019, 2 Shingrix 01/19/2020,09/15/2019 TD Preservative Free 12/02/2013 Td 07/06/2018,05/08/2006 Tdap 09/08/2012 Social History Tobacco Use Types Packs/Day Years Used Date Smoking Tobacco: Never Smokeless Tobacco: Never Tobacco Cessation:Counseling Given: Not Answered Alcohol Use Standard Drinks/Week Comments Never 0 (1 standard drink = 0.6 oz pur e alcohol) Comments Unknown Sex and Gender Information Value Date Recorded Sex Assigned at Not on file Legal Sex Female 4:52 PM EST Gender Identity Not on file Sexual Orientation Not on file Last Filed Vital Signs Vital Sign Reading Time Taken Comments Blood Pressure 124/60 04/01/2023 1:37 PM EDT Pulse 64 04/01/2023 1:37 PM EDT Temperature - - Respiratory Rate - - Oxygen Saturation 97% 04/01/2023 1:37 PM EDT Inhaled Oxygen Concentration - - Weight - - Height - - Body Mass Index - - Plan of Treatment Health Maintenance Due Date Last Done Comments Influenza Vaccine (#1) 2024 , 07/26/2022, 07/28/2021, Additional history exists Pneumococcal Vaccine: 65+ Years Completed 07/21/2019, 06/08/2015, 09/08/2012 Hepatitis B Vaccine Aged Out No longe r eligible based on patient's age to complete this topic Insurance [facility] M[facility] ([id number]) [place] [id number] [facility] ([id number]) Care Teams Call Center Supervisor Relationship Specialty Start Date End Date Name, MD Nitin [address] [place] [id number] PCP - General Internal Medicine 10/15/22
--- OUTSIDE RECORDS SUMMARY | 2025-01-18 02:52 | XMS_ITS | Encounter Summary ---
Author Organization [employer] Address [address] [facility] [address] [place] [address] Care Team Providers Care Director Of Maintenance Name Role Phone Name, Nitin PIKE Primary Care Provider [phone] Reason for Visit * Reason Onset Date Comments ER Follow-up 05/04/2024 Encounter Details Date Type Department Care Team ([facility] [place] [facility] st Contact Info) Description 05/04/2024 Telephone [facility] [address] [place], [place] [phone] Name, MD Nitin [address] [place] [address] ER Follow-up Social History Tobacco Use Types Packs/Day Years [...] AM EDT documented as of this encounter Miscellaneous Notes * Telephone Encounter - Melany Santos RN - 05/04/2024 11:01 AM EDT T/C [place] pt. Through [place] id - [id number] for below message, No answer. LVM to call back [phone] . * Telephone Encounter - Adithya Solorzano - 05/04/2024 9:35 AM EDT Noreen with [facility] calling to report ED visit on : Date: 04/28 Hospital: [facility] Seen for: UTI, Nausea, Rash. Noreen advised will be forwarding message to team nurses. Please contact pt at [phone]. documented in this encounter Plan of Treatment Upcoming Encounters Date Type Department Care Team (Late st Contact Info) Description 04/29/2025 10:00 AM EDT Office Visit [facility] [address] [place] [address] Name, MD Nitin [address] [place] [address] documented as of this encounter Visit Diagnoses Not on filedocumented in this encounter Additional Health Concerns Assessment Noted Time PHQ-9 Depression Total Score: 6 02/13/20 24 9:14 AM EDT documented as of this encounter Care Teams Director Of Maintenance Relationship Specialty Start Date End Date Name, MD Nitin [address] [place] [address] PCP - General Family Medicine 08/26/17 [facility] 09/01/24 documented as of this encounter
--- OUTSIDE RECORDS SUMMARY | 2025-01-18 02:52 | XMS_ITS | Encounter Summary ---
Author Organization [employer] Address [address] [facility] [address] [place] [address] Care Team Providers Care Shear Helper Name Role Phone Name, Nitin PIKE Primary Care Provider [phone] Reason for Visit * Reason Onset Date Comments ER Follow-up 05/31/2024 Encounter Details Date Type Department Care Team ([facility] st Contact Info) Description 05/31/2024 Telephone [facility]INE [address] [place], [place] [phone] Name, MD Nitin [address] [place] [address] ER Follow-up Social History Tobacco Use Types [...] Telephone Encounter - Melany Santos RN - 05/31/2024 1:36 PM EDT T/C to Pat ([facility]) [phone] for below message, no answer. LVM to call back on [phone]. * Telephone Encounter - Melany Santos RN - 05/31/2024 1:32 PM EDT DAVID T/C to pt. Through [place] id - [id number] for below message, pt. Had recent fall and ED visit at [facility]. RN will request GRACE piedra from [facility]. Pt. Is doing good, states I am tired andsleeping. Pt. Dose not has any question or concern right now. Pt. Already has HDF apt. Schedule on 06/10/2024. Pt. Advised to give call to [facility] if any questions or concerns. Pt. Verbally agreed and understood. Please review and advise if needed. * Telephone Encounter - Adithya Solorzano - 05/31/2024 12:50 PM EDT Patient calling to report ED visit on : Date: 05/26 Hospital: [facility] Seen for: Fall, Back Pain Pat stated pt is requesting a sooner apt with pcp due to recent ER visit. PT is also requesting order for PT services for to go along with [facility]. documented in this encounter Plan of Treatment Upcoming Encounters Date Type Department Care Team (Late st Contact Info) Description 04/29/2025 10:00 AM EDT Office Visit [facility] [address] [place] [address] Name, MD Nitin [address] [place] [address] documented as of this encounter Visit Diagnoses Not on filedocumented in this encounter Additional Health Concerns Assessment Noted Time PHQ-9 Depression Total Score: 6 02/13/20 24 9:14 AM EDT documented as of this encounter Care Teams Shear Helper Relationship Specialty Start Date End Date Name, MD Nitin [address] [place] [id number] PCP - General Family Medicine 08/26/17 [facility] 09/01/24 documented as of this encounter
--- OUTSIDE RECORDS SUMMARY | 2025-01-18 02:52 | XMS_ITS | Encounter Summary ---
Author Organization [employer] [facility] Address [address] [facility] [address] [place] [address] Care Team Providers Care Chief Learning Officer Name Role Phone NameNitin MD Primary Care Provider [phone] Encounter Details Date Type Department Care Team (Late st Contact Info) Description 05/26/2023 Orders Only [facility] MED[facility]INE [address] [place] [address] [phone] Noreen Fox MD [address] [place] [address] [phone] Social History Tobacco Use Types Packs/Day Years Used Date Smoking Tobacco: Never Passive Smoke Exposure: Never Smokeless Tobacco: Never Depression Answer Date Recorded Patient Health Questionnaire-9 Score 12 05/29/2023 Depression Answer Date Recorded Patient Health Questionnaire-2 Score 4 05/29/2023 Comments Unknown Sex and Gender Information Value Date Recorded Sex Assigned at Female 09/09/2022 10:14 AM EDT Legal Sex Female 10:14 AM EDT Gender Identity Female 04/01/2023 9:37 AM EDT Sexual Orientation Choose not to disclose 2021 10:14 AM EDT COVID-19 Exposure Response Date Recorded In the last 10 days, have yo u been in contact with someone who was confirmed or suspected to have Coronavirus/COVID-19? No / Unsure 05/01/2023 8:32 AM EDT documented as of this encounter Plan of Treatment Upcoming Encounters Date Type Department Care Team (Late st Contact Info) Description 04/29/2025 10:00 AM EDT Office Visit [facility] [address] [place] [phone] Name, MD Nitin [address] [place] [address] documented as of this encounter Visit Diagnoses Not on filedocumented in this encounter Care Teams Chief Learning Officer Relationship Specialty Start Date End Date Name, MD Nitin [address] [place] [address] PCP - General Family Medicine 08/26/17 [facility] 09/01/24 documented as of this encounter
--- OUTSIDE RECORDS SUMMARY | 2025-01-18 02:52 | XMS_ITS | Data Portability ---
Author Organization [facility] [place] [facility] [employer] Address [address] [place] [id number] Care Team Providers Care Shank Sorter Name Role Phone HIM [facility] Primary Care Provider Assessment No assessment recorded. Plan of Treatment Reminders Order Date Submit Date Provider Last Modified By Organization Details Last Modified Time Details Appointments None record ed. Lab None record ed. Referral None record ed. Procedures None record ed. Surgeries None record ed. Imaging None record ed. Medication Orders None record ed. Patient TargetsNo targets recorded. Patient InstructionsNo instructions recorded. Reason for Referral None Reported. Medical Equipment None Reported. Allergies Allergen ID Allergen Name Allergen Category Reaction Reaction Severity Criticality Documentation Date Start Date Code Code System Note Provider Name and Address Organization Details Recorded Time 8802 clindamyc in Not available Not available Not available Not available 09/07/2024 2582 RxNorm Not Available [facility] - production 4 03:46:54 Medications Name Sig Start Date Stop Date Status Note LastModified by Organization Details LastModified Time medbox status USE DIRECTED active Not Available Not Available No t Available multivitamin tablet TAKE 1 TABLET BY MOUTH EVERY MORNING active Not Available Not Available No t Available neomycin-leandra ymyxin-hydro jessica 3.5 mg/mL-10,000 unit/mL-1 % ear solution USE 5 DROPS IN THE LEFT EAR ONCE DAILY DIRECTED active Not Available Not Available No t Available doxycycline hyclate 100 mg capsule TAKE 1 CAPSULE BY MOUTH TWICE DAILY x5d/ TAKE WITH 8 OUNCES WATER. Do not lie down for 30 minutes after taking active Not Available Not Available No t Available cefuroxime axetil 250 mg tablet TAKE 1 TABLET BY MOUTH TWICE DAILY FOR 7 DAYS active Not Available Not Available No t Available azithromycin 250 mg tablet TAKE 2 TABLETS BY MOUTH ON DAY 1, THEN TAKE 1 TABLET DAILY ON DAYS 2-5 active Not Available Not Available No t Available metoprolol succinate ER 50 mg tablet,exten ded release 24 hr TAKE 1 TABLET BY MOUTH EVERY MORNING active Not Available Not Available No t Available sertraline 100 mg tablet TAKE 1 TABLET BY MOUTH EVERY MORNING active Not Available Not Available No t Available amlodipine 5 mg tablet TAKE 1 TABLET BY MOUTH EVERY MORNING active Not Available Not Available No t Available aspirin 81 mg tablet,delay ed release TAKE 1 TABLET BY MOUTH EVERY MORNING active Not Available Not Available No t Available acetaminophe n 500 mg tablet TAKE 1 TABLET BY MOUTH EVERY 8 HOURS NEEDED FOR PAIN active Not Available Not Available No t Available alprazolam 0.5 mg tablet TAKE 1 TABLET BY MOUTH AT BEDTIME NEEDED FOR ANXIETY active Not Available Not Available No t Available ofloxacin 0.3 % ear drops INSTILL 5 DROPS IN THE LEFT EAR TWICE DAILY FOR 7 DAYS active Not Available Not Available No t Available tolnaftate 1 % topical cream APPLY TOPICALLY TO AFFECTED AREA(S) TWICE DAILY active Not Available Not Available Not Available alprazolam 0.25 mg tablet TAKE 1 TABLET BY MOUTH FOUR TIMES DAILY NEEDED active Not Available Not Available No t Available meclizine 25 mg tablet TAKE 1 TABLET BY MOUTH EVERY DAY NEEDED active Not Available Not Available No t Available amlodipine 10 mg tablet TAKE 1 TABLET BY MOUTH EVERY MORNING active Not Available Not Available No t Available hydrocortiso ne 1 % topical cream APPLY TOPICALLY TO RASH TWICE DAILY NEEDED active Not Available Not Available No t Available diphenhydram ine 25 mg capsule TAKE 1 CAPSULE BY MOUTH ONCE DAILY NEEDED FOR ITCHING active Not Available Not Available No t Available docusate sodium 100 mg capsule TAKE 1 CAPSULE BY MOUTH TWICE DAILY NEEDED FOR CONSTIPATIO N active Not Available Not Available No t Available omeprazole 20 mg capsule,maria eugenia yed release TAKE 1 CAPSULE BY MOUTH EVERY MORNING 1 HOUR BEFORE BREAKFAST active Not Available Not Available No t Available mirtazapine 45 mg tablet TAKE 1 TABLET BY MOUTH AT BEDTIME active Not Available Not Available No t Available hydrocortiso ne 2.5 % topical cream APPLY TO THE AFFECTED AREA(S) TWICE DAILY active Not Available Not Available Not Available bisacodyl 5 mg tablet,delay ed release TAKE 1 TABLET BY MOUTH EVERY DAY NEEDED FOR CONSTIPATIO N. DO NOT BREAK, CRUSH, DISSOLVE OR CHEW active Not Available Not Available No t Available zolpidem 5 mg tablet TAKE 1 TABLET BY MOUTH AT BEDTIME NEEDED active Not Available Not Available No t Available cefuroxime axetil 500 mg tablet TAKE 1 TABLET BY MOUTH TWICE DAILY FOR 10 DAYS active Not Available Not Available No t Available polyethylene glycol 3350 17 gram/dose oral powder MIX 17 GRAMS WITH WATER, COFFEE, OR TEA AND TAKE TWICE DAILY active Not Available Not Available No t Available lisinopril 40 mg tablet TAKE 1 TABLET BY MOUTH EVERY EVENING active Not Available Not Available No t Available ondansetron 4 mg disintegrati ng tablet DISSOLVE 1 TABLET ON TONGUE EVERY 8 HOURS NEEDED FOR NAUSEA AND VOMITING active Not Available Not Available No t Available fluticasone propionate 50 mcg/actuatio n nasal spray,suspen gildardo USE 2 SPRAYS IN EACH NOSTRIL EVERY DAY active Not Available Not Available No t Available loratadine 10 mg tablet TAKE 1 TABLET BY MOUTH EVERY DAY active Not Available Not Available No t Available metocloprami de 10 mg tablet TAKE 1 TABLET BY MOUTH THREE TIMES DAILY IN THE MORNING, AT NOON, AND AT BEDTIME NEEDED FOR NAUSEA active Not Available Not Available N ot Available buspirone 15 mg tablet TAKE 1 TABLET BY MOUTH AT NOON FOR 5 DAYS (WITH TWICE DAILY DOSE) active Not Available Not Available No t Available hydroxyzine pamoate 25 mg capsule TAKE 1 CAPSULE BY MOUTH EVERY 8 HOURS NEEDED FOR ANXIETY FOR UP TO 10 DAYS active Not Available Not Available No t Available Pain Reliever Plus 250 mg-250 mg-65 mg tablet TAKE 2 TABLETS BY MOUTH EVERY 8 HOURS NEEDED FOR HEADACHE active Not Available Not Available No t Available rosuvastatin 20 mg tablet TAKE 1 TABLET BY MOUTH EVERY EVENING active Not Available Not Available No t Available cholecalcife rol (vitamin D3) 25 mcg (1,000 unit) tablet TAKE 1 TABLET BY MOUTH TWICE DAILY IN THE MORNING AND AT BEDTIME active Not Available Not Available No t Available FeroSul 325 mg (65 mg iron) tablet TAKE 1 TABLET BY MOUTH EVERY MORNING WITH BREAKFAST active Not Available Not Available No t Available Calmoseptine 0.44 %-20.6 % topical ointment APPLY TOPICALLY FOUR TIMES DAILY NEEDED FOR IRRITATION OF SKIN active Not Available Not Available No t Available Linzess 145 mcg capsule TAKE 1 CAPSULE BY MOUTH EVERY DAY ON AN EMPTY STOMACH 30 MINUTES BEFORE A MEAL. SWALLOW WHOLE WITH WATER active Not Available Not Available No t Available Hemorrhoidal (phenyleph-m in oil-petrolat )0.25 %-14 %-74.9 % rectal oint APPLY RECTALLY TWICE DAILY NEEDED FOR HEMORRHOIDS active Not Available Not Available Not Available melatonin ER 10 mg tablet,exten ded release TAKE 1 TABLET BY MOUTH AT BEDTIME NEEDED FOR SLEEP active Not Available Not Available No t Available Lou-Dryl 25 mg tablet TAKE 1 TABLET BY MOUTH AT BEDTIME NEEDED (for itching) active Not Available Not Available No t Available Vitals Date Recorded Respiratory rate Body temperature Oxygen saturation Oxygen saturation in Arterial blood by Pulse oximetry Heart rate Systolic blood pressure Diastolic blood pressure Provider Name and Address Organization Details Last Updated DateTime 4 16 /min 96 [degF] 96 % 96 % 89 /min 120 mm[Hg] 70 mm[Hg] Not Available [facility] - production 4 18:59:08 Date Recorded Respiratory rate Heart rate Body weight Oxygen saturation Oxygen saturation in Arterial blood by Pulse oximetry Body temperature Systolic blood pressure Diastolic blood pressure Provider Name and Address Organization Details Last Updated DateTime 18 /min 74 /min 73580.9 28 g 98 % 98 % 100 [degF] 130 mm[Hg] 66 mm[Hg] Not Available [facility] [employer] 15:33:18 Social History None recorded. Functional Status None recorded. Mental Status None recorded. Family History Nothing Reported. Medical History No medical history recorded. Gynecological HistoryNo gynecological history recorded. Obstetrics History GPAL:G 0 P 0 0 0 0 Past Encounters Encounter ID Performer Location Encounter Start Date Encounter Closed Date Diagnosis/Indication Diagnosis SNOMED-CT Code Diagnosis ICD10 Code Diagnosis Note [id number] Epifanio Mcintyre MD [address] [address] 01/31/2024 18:59:06 02/01/2024 21:09:19 Urethral stenosis 811239520 N35.92 This 78-year-ol d female recently had a Bunn catheter placed because she had difficulty voiding due to apparent urethral stenosis. She called today because she insists on having the catheter removed. It was removed by the school age lead teacher with the understand ing that if she can't void, she will need to go the the ER. The patient agreed with this plan. [id number] Rohit Benton MD Main - [address] [address] 02/06/2024 15:33:16 02/09/2024 18:20:42 Chronic retention of urine 993139918 R33.8 Has bunn catheter which was recently placed. Due to see Urology on 02/08. No s/s of current infection or malfunctio n of the catheter. Stable vitals. Advised to f/u with uro on 02/08. Discussed red flag signs for which to seek higher level of care. Health Concerns Section Related Observation LastModified by Organization Detai ls LastModified Time None Recorded Concern Status LastModified by Organization Details LastModified Time None Recorded Advance Directives Directive None Recorded Payers Encounter Date Sequence Insurance Name Policy Number Policy Pinzon Covered Member ID Pinzon Member ID Guarantor Name 01/31/2024 1 [facility] - DOS ON OR AFTER 2023 - DUAL ELIGIBLE - [facility] OPTIONS AND ONE CARE (MEDICARE REPLACEMENT/ADV ANTAGE - HMO) Noreen Wing [id number] Noreen Wing 02/06/2024 1 [facility] - DOS ON OR AFTER 2023 - DUAL ELIGIBLE - [facility] OPTIONS AND ONE CARE (MEDICARE REPLACEMENT/ADV ANTAGE - HMO) Noreen Wing [id number] Noreen Wing Notes Date Note Type Note Provider Name and Address Organization Details Recorded Time 01/31/2024 text/html [facility] Nurse Triage Notes (Joana Dominique): Reason For Request: Bunn catheter malfunction/painful Chief Complaints: UTI/Pyelonephritis, Equipment-Related Allergies: No Known Comments: Bermudian speaking member who denies any PMH, denies any allergies, poor historian due to extreme pain and/or language barrier, member was difficult to triage, getting upset and in pain. Info obtained: member has a bunn cath and it is painful and she wants it out. Went to the ED and had it placed because she could not urinate, unsure exact date. No further info given. Has a friend over to help translate for visit Nader KAYE Verified name//address Epifanio Mcintyre MD [address], [place], [address], [facility] 01/31/2024 19:05:57 02/06/2024 text/html HPI: Member asked for HV tomorrow after 10 AM if possible. Treated at the [facility] today, for F/u leaking, stated is bursted open and had blood in her urine. Stated to feel weak but better. Would like a visit due to body aches, and weakness. Member has done to the ER 4 days in a row for pains, anxiety and concens with bunn. Has Uro appt on 02/08 and goes to the multiple x per week due to Anxiety. New DX of Dementia. Member lives with son Jame Wing. Member is 78 y/o B[place]udian speaking female who [facility] with her son. Member has multiple ER visits d/t panic attacks and elevated BP caused by her anxiety. Member went to the ED on 01/26/24 d/t inability to urinate and had a Bunn catheter placed with urology f/u appt scheduled on 02/09/24. New Dx of Dementia seen on ER claims recently and member denied it and is afraid she will be forced into a SNF or psych unit due to Benzo dependence. Hx of IBS, urinary incontinence, HTN, PSVT, DJD, Vertigo, pre dm. Other DX Chronic prescription benzodiazepine use and sees her BH counselor weekly and Prescriber [employer] TE[employer] [place] monthly if needed or every 2-3 months, .................... .................... .................... .................... .................... .................... .................... . [facility] Nurse Triage Notes (Zafar Irving): Comments: Reviewed HPI .................... .................... .................... .................... .................... .................... .................... . Smooth Plater Note From [place]: Pt sts doesn? t know why she has a bunn cath?she has appt on Friday with urologist. Pt denies urinary pain lower abdominal pain CVa pain chest pain fever NVd. Pt was resting comfortably on arrival. Pt understands she will know more what? s going on with her during appt Friday. Baseline vitals assessed. Vitals stable. Urine clear and light yellow. [facility] [place] contacted and advised pt to rest and advised to make sure she goes to appt Friday. Pt son was used as cephalometric technician. Pt education on signs indicating the ER. Smooth Plater Allergies: Clindamycin .................... .................... .................... .................... .................... .................... .................... . Disposition: Fulfilled Rohit Benton MD [address] [facility],[address], [place], [address], [facility] 02/06/2024 17:58:19 OBGyn Episode No OBEpisode recorded.
--- OUTSIDE RECORDS SUMMARY | 2025-01-18 02:52 | XMS_ITS | Encounter Summary ---
Author Organization [facility] Address [address] [place] [address] Care Team Providers Care Administrative Services Manager Name Role Phone Name, Nitin PIKE Primary Care Provider [phone] Reason for Visit * Reason Onset Date Comments Results 08/29/2023 Encounter Details Date Type Department Care Team ([facility] st Contact Info) Description 08/29/2023 Telephone [facility] [address] [place], [place] [phone] Name, MD Nitin [address] [place] [address] Results Social History Tobacco Use Types Packs/Day Years Used Date Smoking Tobacco: Never Passive Smoke Exposure: Never Smokeless Tobacco: Never Alcohol Use Standard Drinks/Week Comments Never 0 (1 standard drink = 0.6 oz pur e alcohol) Depression Answer Date Recorded Patient Health Questionnaire-9 Score 12 05/29/2023 Housing Stability Answer Date Recorded What is [...] encounter Miscellaneous Notes * Telephone Encounter - Fozia Jacob RN - 09/01/2023 11:51 AM EDT Pt evaluated in [facility] today and is scheduled with pcp 09/03/23. * Telephone Encounter - Janette Huitron - 08/29/2023 4:06 PM EDT Tc from pt requesting a call in regards to urine results. Please contact pt at [phone] (Cymro) documented in this encounter Plan of Treatment Upcoming Encounters Date Type Department Care Team (Late st Contact Info) Description 04/29/2025 10:00 AM EDT Office Visit [facility] [address] [place] [phone] Name, MD Nitin [address] [place] [phone] documented as of this encounter Visit Diagnoses Not on filedocumented in this encounter Additional Health Concerns Assessment Noted Time PHQ-9 Depression Total Score: 12 023 9:37 AM EDT documented as of this encounter Care Teams Administrative Services Manager Relationship Specialty Start Date End Date NameNitin MD [address] [place] [address] PCP - General Family Medicine 08/26/17 [facility] 09/01/24 documented as of this encounter
--- OUTSIDE RECORDS SUMMARY | 2025-01-18 02:52 | XMS_ITS | Encounter Summary ---
Author Organization [employer] Address [address] [facility] [address] [place] [address] Care Team Providers Care Interior Design Faculty Member Name Role Phone Name, Nitin PIKE Primary Care Provider [phone] Reason for Visit * Reason Onset Date Comments Hospital Follow-up 10/20/2024 Encounter Details Date Type Department Care Team ([facility] st Contact Info) Description 10/20/[address] [facility] MED[facility]INE [address] [place], [place] [phone] Name, MD Nitin [address] [place] [address] Hospital Follow-up Social History Tobacco Use Types Packs/Day Years Used Date Smoking Tobacco: Never Passive Smoke Exposure: Never Smokeless Tobacco: Never Alcohol Use Standard Drinks/Week Comments Never 0 (1 standard drink = 0.6 oz pur e alcohol) Alcohol Answer Date Recorded Frequency of Alcohol Consumption Not on file 06/14/2024 Average Number of Drinks Not on file 024 Frequency of Binge Drinking Not on file 03/2024 Score 0 06/14/2024 Depression Answer Date Recorded Patient Health Questionnaire-9 Score 6 02/13/2024 Patient Health Questionnaire-9 Score 6 02/13/2024 Last PHQ-9: Questionnaire Data Not on file 0 02/13/2024 Housing Stability Answer Date Recorded What is your housing situation today? I have claus rawls 06/14/[address] you li ve. Do you have problems with any of the following? None of the above 06/14/2024 Food Insecurity Answer Date Recorded Within the past 12 months, y ou worried that your food would run out before you got money to buy more: Never True 06/14/2024 Within the past 12 months,th e food you bought just didn't last and you didn't have enough money to get more: Never True 03/2024 Transportation Answer Date Recorded In the past 12 months, has l ack of transportation kept you from medical appts, meetings, work or from getting things needed for daily living? Yes, it has kept me from medical appointments or getting medications. 06/14/2024 Utilities Answer Date Recorded In the past 12 months, has t he [employer], gas, oil or water company threatened to shut off services in your home? No 06/14/2024 Depression Answer Date Recorded Patient Health Questionnaire-2 Score 3 02/13/2024 Internet Access Answer Date Recorded Internet Access Q1 No 07/09/2024 Internet Access Q2 I do not want or need it 06/12 Comments Unknown Sex and Gender Information Value Date Recorded Sex Assigned at Female 09/09/2022 10:14 AM EDT Legal Sex Female 10:14 AM EDT Gender Identity Female 04/01/2023 9:37 AM EDT Sexual Orientation Choose not to disclose 2021 10:14 AM EDT documented as of this encounter Miscellaneous Notes * Telephone Encounter - Dheeraj Palacio - 10/20/2024 3:52 PM EST Tc from pt requesting a HDF appt. Hospital: [facility] Date of admission: 10/17 Discharge date: 10/19 Diagnosed: High Blood Pressure and Fever Contact pt at [phone] *Send message to [place] Clinical Care Coordinators documented in this encounter Plan of Treatment Upcoming Encounters Date Type Department Care Team (Late st Contact Info) Description 04/29/2025 10:00 AM EDT Office Visit [facility] MEDICINE [address] [place] [phone] Name, MD Nitin [address] [place] [address] documented as of this encounter Visit Diagnoses Not on filedocumented in this encounter Additional Health Concerns Assessment Noted Time PHQ-9 Depression Total Score: 6 02/13/20 24 9:14 AM EDT documented as of this encounter Care Teams Interior Design Faculty Member Relationship Specialty Start Date End Date Name, MD Nitin [address] [place] [address] PCP - General Family Medicine 08/26/17 [facility] 09/01/24 documented as of this encounter
--- OUTSIDE RECORDS SUMMARY | 2025-01-18 02:52 | XMS_ITS | Encounter Summary ---
Author Organization [employer] Address [address] [facility] [address] [place] [address] Care Team Providers Care Shuttle Spotter Name Role Phone Name, Nitin PIKE Primary Care Provider [phone] Reason for Visit * Reason Comments Med Refill Encounter Details Date Type Department Care Team ([facility] st Contact Info) Description 06/28/2024 Refill [facility] [address] [place], [place] [phone] Mel Anguiano FNP [address] [place] [address] Social History Tobacco Use Types Packs/Day Years [...] Description 04/29/2025 10:00 AM EDT Office Visit [facility] [address] [place] [address] Name, MD Nitin [address] [place] [address] documented as of this encounter Visit Diagnoses Not on filedocumented in this encounter Additional Health Concerns Assessment Noted Time PHQ-9 Depression Total Score: 6 02/13/20 9:14 AM EDT documented as of this encounter Care Teams Shuttle Spotter Relationship Specialty Start Date End Date Name, MD Nitin [address] [place] [address] PCP - General Family Medicine 08/26/17 [facility] 09/01/24 documented as of this encounter
--- OUTSIDE RECORDS SUMMARY | 2025-01-18 02:52 | XMS_ITS | Clinical Summary ---
Author Organization [facility] Address [address] [place] [address] Phone Care Team Providers Care Sole Rounder Name Role Phone Physician, No Pcp Primary Care Provider Unavaila ble Allergies No known active allergies Medications No known medications Encounters Date Type Department Care Team Description 11/14/2024 10:38 PM EST - 11/15/2024 3:52 AM EST Emergency [facility] Emergency [address] [place] [address] Discharge Disposition: Home or Self Care from Last 3 Months Medical History Medical History Date Comments Hypertension Anxiety Social History Tobacco Use Types Packs/Day Years Used Date Smoking Tobacco: Never Smokeless Tobacco: Never Tobacco Cessation:Counseling Given: Not Answered Comments Unknown Sex and Gender Information Value Date Recorded Sex Assigned at Not on file Legal Sex Female 1:35 PM EDT Gender Identity Not on file Sexual Orientation Not on file Obstetrics History Last Filed Vital Signs Vital Sign Reading Time Taken Comments Blood Pressure 153/80 11/14/2024 10:48 PM EST Pulse 81 11/14/2024 10:48 PM EST Temperature 36.6 ??C (97.8 ??F) 11/14/2024 10:[address] Respiratory Rate 18 11/14/2024 10:48 PM EST Oxygen Saturation 96% 11/14/2024 10:48 PM EST Inhaled Oxygen Concentration - - Weight 83.5 kg (184 lb) 11/14/2024 10:48 PM EST Height 172.7 cm (5' 8 ) 11/14/2024 10:48 PM EST Body Mass Index 27.98 11/14/2024 10:48 PM EST Plan of Treatment Health Maintenance Due Date Last Done Comments Falls Risk Assessment 06/02/2024 Medicare Annual Wellness Visit 06/02/2024 Osteoporosis Screening (Bone Density Screening) 06/02/2024 Social Influencers of Health Screening 06/02/2024 Depression Screening 02/12/2025 02/13/2024 Hypertension/CHF/CAD Annual BMP Blood Test 10/25/2025 10/25/2024, 09/22/2024, 08/16/2024, Additional history exists Cholesterol Screening (Lipid Panel) 09/19/2027 09/19/2022 DTaP,Tdap,and Td Vaccines (6 - Td or Tdap) 10/20/2033 10/20/2023, 07/06/2018, 12/02/2013, Additional history exists Zoster Vaccines Completed 01/19/2020, 09/15/2019 Pneumococcal Vaccine: 50+ Years Completed 12/26/2023, 07/21/2019, 06/08/2015, Additional history exists RSV Immunization Patients 60+ Years Old Completed 12/26/2023 COVID-19 Vaccine Completed 08/16/2024, , 02/19/2022, Additional history exists Influenza Vaccine Completed 08/16/2024, , 07/26/2022, Additional history exists HIB Vaccines Aged Out No longer eligi ble based on patient's age to complete this topic HPV Vaccines Aged Out No longer eligi ble based on patient's age to complete this topic Hepatitis A Vaccines Aged Out No long er eligible based on patient's age to complete this topic Hepatitis B Vaccines Aged Out No long er eligible based on patient's age to complete this topic IPV Vaccines Aged Out No longer eligi ble based on patient's age to complete this topic MMR Vaccines Aged Out No longer eligi ble based on patient's age to complete this topic Meningococcal ACWY Vaccine Aged Out N o longer eligible based on patient's age to complete this topic Meningococcal B Vacine Aged Out No lo nger eligible based on patient's age to complete this topic RSV Immunization Patients Under 20 months Aged Out No longer eligible based on patient's age to complete this topic Varicella Vaccines Aged Out No longer eligible based on patient's age to complete this topic Procedures Procedure Name Priority Date/Time Associated Diagnosis Comments COMPREHENSIVE METABOLIC PANEL STAT 09/22/2024 2:28 AM EST from Last 3 Months or Most Recently Relevant to Health Maintenance Results * (ABNORMAL) Comprehensive metabolic panel (09/22/2024 2:28 AM EST) Sodium 132(L) 133 - 145 mmol/L LAB CHEMISTRY METHOD 09/22/2024 3:15 AM [facility] Potassium 4.6 3.5 - 5.5 mmol/L LAB CHEMISTRY METHOD 09/22/2024 3:15 AM [facility] Chloride 98 96 - 110 mmol/L LAB CHEMISTRY METHOD 09/22/2024 3:15 AM [facility] CO2 28 21 - 32 mmol/L LAB CHEMISTRY METHOD 09/22/2024 3:15 AM [facility] Anion Gap 6 3 - 11 LAB CHEMISTRY METHOD 09/22/2024 3:15 AM [facility] Glucose 119(H) 70 - 100 mg/dL LAB CHEMISTRY METHOD 09/22/2024 3:15 AM [facility] BUN 25 5 - 25 mg/dL LAB CHEMISTRY METHOD 09/22/2024 3:15 AM [facility] Creatinine 1.18(H) 0.50 - 1.10 mg/dL LAB CHEMISTRY METHOD 09/22/2024 3:15 AM [facility] eGFR 47(L) >=60 mL/min/1. 73m2 LAB CHEMISTRY METHOD 09/22/2024 3:15 AM [facility] Comment:Calculation based on the??Chronic Kidney Disease Epidemiology Collaboration (CKD-EPI) equation refit??without adjustment for race. BUN/Creatinine Ratio 21.2 LAB CHEMISTRY METHOD 09/22/2024 3:15 AM [facility] Calcium 9.3 8.5 - 10.5 mg/dL LAB CHEMISTRY METHOD 09/22/2024 3:15 AM [facility] AST (SGOT) 37 10 - 42 unit/L LAB CHEMISTRY METHOD 09/22/2024 3:15 AM [facility] ALT (SGPT) 25 10 - 60 unit/L LAB CHEMISTRY METHOD 09/22/2024 3:15 AM EST [facility] Alkaline Phosphatase 77 42 - 121 unit/L LAB CHEMISTRY METHOD 09/22/2024 3:15 AM EST [facility] Total Protein 8.0 6.0 - 8.0 g/dL LAB CHEMISTRY METHOD 09/22/2024 3:15 AM EST [facility] Albumin 4.2 3.2 - 5.0 g/dL LAB CHEMISTRY METHOD 09/22/2024 3:15 AM EST [facility] Total Bilirubin 0.4 0.0 - 1.4 mg/dL LAB CHEMISTRY METHOD 09/22/2024 3:15 AM [facility] Blood Venous blood specimen / Unknown Venipuncture / Unknown 09/22/2024 2:28 AM EST 09/22/2024 2:31 AM EST us Paul RUIZ LAB BLOOD ORDERABLES Final Resul t [facility] [address] [place] [address], from Last 3 Months or Most Recently Relevant to Health Maintenance Insurance [facility] MEDIC[facility] Member Subscriber Plan / Payer (Ef fective 2021-Present) Name:MaciejNoreen Relation to Subscriber:Self Name:Noreen Wing Payer ID:[id number] Group ID:[id number] Type:Not on file Address: [place] [address] [address] Care Teams Sole Rounder Relationship Specialty Start Date End Date Physician, No Pcp PCP - General 09/22/24
--- OUTSIDE RECORDS SUMMARY | 2025-01-18 02:53 | XMS_ITS | Encounter Summary ---
Author Organization [employer] Address [address] [facility] [address] [place] [address] Care Team Providers Care Vision Rehabilitation Therapist Name Role Phone Name, Nitin PIKE Primary Care Provider [phone] Reason for Visit * Reason Onset Date Comments chartprep 01/05/2025 Encounter Details Date Type Department Care Team ([facility] Contact Info) Description 01/05/2025 Telephone [facility] [address] [place], [place] [phone] Name, MD Nitin [address] [place] [address] chartprep Social History Tobacco Use Types Packs/Day Years [...] the past 12 months, has t he [employer], gas, oil or water company threatened to [...] encounter Miscellaneous Notes * Telephone Encounter - Johanne Wing MA - 01/05/2025 1:25 PM EST Chart Prep Labs: done Images: done Vaccines due: none Referrals: n/a Screenings: n/a Overdue care gaps: A1C, Glucose, PHQ-9, KAL-7 documented in this encounter Plan of Treatment Upcoming Encounters Date Type Department Care Team (Late st Contact Info) Description 04/29/2025 10:00 AM EDT Office Visit [facility] MED[facility] [address] [place] [address] Name, MD Nitin [address] [place] [address] documented as of this encounter Visit Diagnoses Not on filedocumented in this encounter Additional Health Concerns Assessment Noted Time PHQ-9 Depression Total Score: 6 02/13/20 24 9:14 AM EDT documented as of this encounter Care Teams Vision Rehabilitation Therapist Relationship Specialty Start Date End Date Name, MD Nitin [address] [place] [address] PCP - General Family Medicine 08/26/17 [facility] 09/01/24 documented as of this encounter
--- OUTSIDE RECORDS SUMMARY | 2025-01-18 02:53 | XMS_ITS | Encounter Summary ---
Author Organization [employer] Address [address] [facility] [address] [place] [address] Care Team Prov[address] Care Ct Tech Name Role Phone Name, Nitin PIKE Primary Care Provider [phone] Reason for Visit * Reason Onset Date Comments FYI 01/21/2024 ER Follow-up 01/21/2024 Encounter Details Date Type Department Care Team ([facility] st Contact Info) Description 01/21/2024 Telephone [facility]INE [address] [place], [place] [phone] Name, MD Nitin [address] [place] [address] FYI; ER Follow-up Social History Tobacco Use Types [...] Telephone Encounter - Fozia Jacob RN - 01/21/2024 1:54 PM EDT Message from [facility] [place] [place] ED noted. [facility] [place] [place] note sent to medical records. PCP does not rx Trazodone. Pt to f/u with psych prescriber. Pt is scheduled for f/u with pcp 02/13/24. * Telephone Encounter - Janette Huitron - 01/21/2024 9:45 AM EDT Tc from [facility] with [facility] ED calling in regards to pt. States pt was seen today for anxiety and is requesting trazodone. Will discharge pt with no medication change. Would also like to advise provider, pt was seen at [facility] on 01/17 for anxiety/insomnia as well documented in this encounter Plan of Treatment Upcoming Encounters Date Type Department Care Team (Late st Contact Info) Description 04/29/2025 10:00 AM EDT Office Visit [facility] MED[facility] [address] [place] [address] Name, MD Nitin [address] [place] [address] documented as of this encounter Visit Diagnoses Not on filedocumented in this encounter Additional Health Concerns Assessment Noted Time PHQ-9 Depression Total Score: 12 023 9:37 AM EDT documented as of this encounter Care Teams Ct Tech Relationship Specialty Start Date End Date Name, MD Nitin [address] [place] [address] PCP - General Family Medicine 08/26/17 [facility] 09/01/24 documented as of this encounter
--- OUTSIDE RECORDS SUMMARY | 2025-01-18 02:53 | XMS_ITS | Encounter Summary ---
Author Organization [employer] Address [address] [facility] [address] [place] [address] Care Team Providers Care Pipe Racker Name Role Phone Name, Nitin PIKE Primary Care Provider [phone] Reason for Visit * Reason Onset Date Comments triage 12/18/2022 Encounter Details Date Type Department Care Team ([facility] st Contact Info) Description 12/18/2022 Telephone [facility] [address] [place], [place] [phone] Name, MD Nitin [address] [place] [address] triage Social History Tobacco Use Types Packs/Day Years Used Date Smoking Tobacco: Never Assessed Comments Unknown Sex and Gender Information Value Date Recorded Sex Assigned at Female 09/09/2022 10:14 AM EDT Legal Sex Female 10:14 AM EDT Gender Identity Female 04/01/2023 9:37 AM EDT Sexual Orientation Choose not to disclose 2021 10:14 AM EDT COVID-19 Exposure Response Date Recorded In the last 10 days, have iraida alexander been in contact with someone who was confirmed or suspected to have Coronavirus/COVID-19? No / Unsure 12/19/2022 10:09 AM EST documented as of this encounter Miscellaneous Notes * Telephone Encounter - Yoly Orozco RN - 12/18/2022 2:35 PM EST Called pt. [address] [facility] supervisor general [phone] Eduardo. Pt. States that she has a left ear infection and is on antibiotics at present. Pt. States that she did not call and that someone called her earlier. Pt. States that she needs a hearing aide and no one is helping her to get it. Pt. Then said Whyis everyone calling me so much, I am trying to take a nap and you are bothering me . Pt. States I a lready have asked for help with a hearing aid and no one does anything for me . Pt. Hung up phone. Please reach out to pt. With Congolese speaking another time to see what her needs may be from the PCP. * Telephone Encounter - Anaid Vinson - 12/18/2022 12:30 PM EST Symptom: Earache Outcome: Schedule a same-day appointment or talk to a nurse or provider today Reason: No high acuity concerns reported by caller The caller accepted this outcome documented in this encounter Plan of Treatment Upcoming Encounters Date Type Department Care Team (Late st Contact Info) Description 04/29/2025 10:00 AM EDT Office Visit [facility] [address] [place] [address] Name, MD Nitin [address] [place] [address] documented as of this encounter Visit Diagnoses Not on filedocumented in this encounter Care Teams Pipe Racker Relationship Specialty Start Date End Date Name, MD Nitin [address] [place] [address] PCP - General Family Medicine 08/26/17 [facility] 09/01/24 documented as of this encounter
--- OUTSIDE RECORDS SUMMARY | 2025-01-18 02:53 | XMS_ITS | Encounter Summary ---
Author Organization [employer] Address [address] [facility] [address] [place] [address] Care Team Providers Care Pot Room Tapper Name Role Phone Name, Nitin PIKE Primary Care Provider [phone] Reason for Visit * Reason Onset Date Comments Durable Medical Equipment 12/09/2023 Encounter Details Date Type Department Care Team ([facility] st Contact Info) Description 12/09/2023 Telephone [facility] [address] [place], [place] [phone] Name, MD Nitin [address] [place], [place] [phone] Durable Medical Equipment Social History Tobacco Use Types Packs/Day Years [...] Telephone Encounter - Fozia Jacob RN - 12/10/2023 10:11 AM EST DME rx faxed to [facility] as requested. RN will consult with S nurse and provide referral. * Telephone Encounter - Fozia Jacob RN - 12/09/2023 4:58 PM EST Call returned to [facility] at [facility] [phone] [facility] states that [facility] attempted to provide PT at home but pt refused. [facility] pt is requesting outpatient PT. [facility] pt is seeing a counselor more regularly and has agreed to VNA referral. Reports pt has had 3 falls in the past [address] [facility] states [facility] no longer has visiting nurses. [facility] recommends [facility] or [facility] for VNA referral. [facility] also requesting DME rx for rollator walker and a straight cane. Requests that DME rx be faxed to [phone]. Advised requests will be sent to pcp. * Telephone Encounter - Adithya Solorzano - 12/09/2023 4:25 PM EST Tc from [facility] requesting DME: Rollator walker . documented in this encounter Plan of Treatment Upcoming Encounters Date Type Department Care Team (Late st Contact Info) Description 04/29/2025 10:00 AM EDT Office Visit [facility] [address] [place] [address] Name, MD Nitin [address] [place] [address] documented as of this encounter Visit Diagnoses Not on filedocumented in this encounter Additional Health Concerns Assessment Noted Time PHQ-9 Depression Total Score: 12 023 9:37 AM EDT documented as of this encounter Care Teams Pot Room Tapper Relationship Specialty Start Date End Date Name, MD Nitin [address] [place] [address] PCP - General Family Medicine 08/26/17 [facility] 09/01/24 documented as of this encounter
--- OUTSIDE RECORDS SUMMARY | 2025-01-18 02:53 | XMS_ITS | Encounter Summary ---
Author Organization [employer] Address [address] [facility] [address] [place] [address] Care Team Providers Care Shipping Support Name Role Phone Name, Nitin PIKE Primary Care Provider [phone] Reason for Visit * Reason Onset Date Comments Verbal Orders 01/02/2024 Encounter Details Date Type Department Care Team ([facility] st Contact Info) Description 01/02/2024 Telephone [facility] [address] [place], [place] [phone] Name, MD Nitin [address] [place] [address] Verbal Orders Social History Tobacco Use Types Packs/Day Years [...] Telephone Encounter - Melany Santos RN - 01/07/2024 3:12 PM EST T/C to [facility] for verbal orders from PCP for discharge pt from Occupational Therapy, due to pt refuses services. [facility] Verbally agreed and understood. * Telephone Encounter - Hiram Soriano - 01/07/2024 2:32 PM EST Tc from [facility] returning phone call. * Telephone Encounter - Melany Santos RN - 01/06/2024 11:37 AM EST T/C to [facility] for below message from PCP, No answer. LVM to call back on [phone]. * Telephone Encounter - Melany Santos RN - 01/06/2024 10:25 AM EST Please review and advise for below request. * Telephone Encounter - Deana Bazzi - 01/02/2024 3:44 PM EST Tc from [facility] with S requesting verbal orders for discharge pt from Occupational Therapy, due to pt refuses services, please contact [facility] at [phone]. documented in this encounter Plan of Treatment Upcoming Encounters Date Type Department Care Team (Late st Contact Info) Description 04/29/2025 10:00 AM EDT Office Visit [facility] [address] [place] [address] Name, MD Nitin [address] [place] [address] documented as of this encounter Visit Diagnoses Not on filedocumented in this encounter Additional Health Concerns Assessment Noted Time PHQ-9 Depression Total Score: 12 023 9:37 AM EDT documented as of this encounter Care Teams Shipping Support Relationship Specialty Start Date End Date Name, MD Nitin [address] [place] [address] PCP - General Family Medicine 08/26/17 [facility] 09/01/24 documented as of this encounter
--- OUTSIDE RECORDS SUMMARY | 2025-01-18 02:53 | XMS_ITS | Encounter Summary ---
Author Organization [employer] Address [address] [facility] [address] [place] [address] Care Team Providers Care Diamond Sander Name Role Phone Name, Nitin PIKE Primary Care Provider [phone] Encounter Details Date Type Department Care Team ([facility] Contact Info) Description 12/17/2022 Orders Only [facility] [address] [place], [place] [phone] Lisha Kelly LPN Social History Tobacco Use Types Packs/Day Years [...] AM EST documented as of this encounter Plan of Treatment Upcoming Encounters Date Type Department Care Team (Late st Contact Info) Description 04/29/2025 10:00 AM EDT Office Visit [facility] MEDICINE [address] [place] [address] NameNitin MD [address] [place] [address] documented as of this encounter Visit Diagnoses Not on filedocumented in this encounter Care Teams Diamond Sander Relationship Specialty Start Date End Date NameNitin MD [address] [place] [address] PCP - General Family Medicine 08/26/17 [facility] 09/01/24 documented as of this encounter
--- OUTSIDE RECORDS SUMMARY | 2025-01-18 02:53 | XMS_ITS | Encounter Summary ---
Author Organization [employer] Address [address] [facility] [address] [place] [address] Care Team Providers Care Payment Collector Name Role Phone Name, Nitin PIKE Primary Care Provider [phone] Reason for Visit * Reason Comments Med Refill Encounter Details Date Type Department Care Team (Late st Contact Info) Description 12/26/2024 Refill [facility] [address] [place] [phone] Name, MD Nitin [address] [place] [address] Prediabetes Social History Tobacco Use Types Packs/Day Years [...] 04/29/2025 10:00 AM EDT Office Visit [facility] [address] [place] [address] NameNitin MD [address] [place] [address] documented as of this encounter Visit Diagnoses Diagnosis Prediabetes Other abnormal glucose documented in this encounter Additional Health Concerns Assessment Noted Time PHQ-9 Depression Total Score: 6 02/13/20 9:14 AM EDT documented as of this encounter Care Teams Payment Collector Relationship Specialty Start Date End Date NameNitin MD [address] [place] [address] PCP - General Family Medicine 08/26/17 [facility] 09/01/24 documented as of this encounter
--- OUTSIDE RECORDS SUMMARY | 2025-01-18 02:53 | XMS_ITS | Encounter Summary ---
Author Organization [employer] Address [address] [facility] [address] [place] [address] Care Team Providers Care Cooling Pan Tender Name Role Phone Name, Nitni PIKE Primary Care Provider [phone] Encounter Details Date Type Department Care Team (Late st Contact Info) Description 11/06/2022 Orders Only [facility]S [address] [place] [address] Lisha Kelly LPN Social History Tobacco Use [...] Description 04/29/2025 10:00 AM EDT Office Visit [facility] [address] [place] [address] NameNitin MD [address] [place] [address] documented as of this encounter Visit Diagnoses Not on filedocumented in this encounter Care Teams Cooling Pan Tender Relationship Specialty Start Date End Date Nitin Echevarria MD [address] [place] [address] PCP - General Family Medicine 08/26/17 [facility] 09/01/24 documented as of this encounter
--- OUTSIDE RECORDS SUMMARY | 2025-01-18 02:53 | XMS_ITS | Encounter Summary ---
Author Organization [employer] Address [address] [facility] [address] [place] [address] Care Team Providers Care Art Therapy Specialist Name Role Phone Name, Nitin PIKE Primary Care Provider [phone] Reason for Visit * Reason Onset Date Comments FYI 08/11/2024 Encounter Details Date Type Department Care Team ([facility] st Contact Info) Description 08/11/2024 Telephone [facility] [address] [place], [place] [phone] Name, MD Nitin [address] [place] [address] FYI Social History Tobacco Use Types Packs/Day Years [...] Telephone Encounter - Fozia Jacob RN - 08/11/2024 5:00 PM EDT Noted. Pt is scheduled for f/u with pcp 08/16/24. Per pcp, no separate HDF is necessary. C noted sent to medical records. * Telephone Encounter - Josephine Coleman - 08/11/2024 4:17 PM EDT Tc from Darryl with [facility] calling to inform provider visiting nurse attempted to start care but pt is unavailable. Facility tried contacting pt and no answer. Pt will be discharged from services. If any questions or concerns contact Darryl at [phone] documented in this encounter Plan of Treatment Upcoming Encounters Date Type Department Care Team ([facility] st Contact Info) Description 04/29/2025 10:00 AM EDT Office Visit [facility] [address] [place] [address] Name, MD Nitin [address] [place] [address] documented as of this encounter Visit Diagnoses Not on filedocumented in this encounter Additional Health Concerns Assessment Noted Time PHQ-9 Depression Total Score: 6 02/13/20 24 9:14 AM EDT documented as of this encounter Care Teams Art Therapy Specialist Relationship Specialty Start Date End Date Name, MD Nitin [address] [place] [address] PCP - General Family Medicine 08/26/17 [facility] 09/01/24 documented as of this encounter
--- OUTSIDE RECORDS SUMMARY | 2025-01-18 02:53 | XMS_ITS | Encounter Summary ---
Author Organization [facility] Address [address] [facility] [address] [place] [address] Care Team Providers Care Fleet Technician Name Role Phone Name, Nitin PIKE Primary Care Provider [phone] Encounter Details Date Type Department Care Team ([facility] Contact Info) Description 08/08/2023 Telephone [facility] [address] [place] [address] [phone] Name, MD Nitin [address] [place] [address] [phone] Social History Tobacco Use Types Packs/Day Years [...] Encounters Date Type Department Care Team (Late Contact Info) Description 04/29/2025 10:00 AM EDT Office Visit [facility] [address] [place] [address] [phone] NameNitin MD [address] [place] [address] [phone] documented as of this encounter Visit Diagnoses Not on filedocumented in this encounter Additional Health Concerns Assessment Noted Time PHQ-9 Depression Total Score: 12 023 9:37 AM EDT documented as of this encounter Care Teams Fleet Technician Relationship Specialty Start Date End Date Name, MD Nitin [address] [place] [address] PCP - General Family Medicine 08/26/17 [facility] 09/01/24 documented as of this encounter
--- OUTSIDE RECORDS SUMMARY | 2025-01-18 02:53 | XMS_ITS | Encounter Summary ---
Author Organization [employer] Address [address] [facility] [address] [place] [address] Care Team Providers Care Customer Support Assistant Name Role Phone Name, Nitin PIKE Primary Care Provider [phone] Reason for Visit * Reason Comments Follow-up Encounter Details Date Type Department Care Team ([facility] st Contact Info) Description 01/10/2025 11:00 AM EST Office Visit [facility] [address] [place] [address] [phone] Name, MD Nitin [address] [place] [address] Generalized anxiety disorder with panic attacks (Primary Dx); Cerumen debris on tympanic membrane of both ears Social History Tobacco Use Types Packs/Day Years [...] the past 12 months, has t he [employer], gas, oil or water [employer] threatened to shut off services in your [...] AM EDT documented as of this encounter Last Filed Vital Signs Vital Sign Reading Time Taken Comments Blood Pressure 146/74 01/10/2025 11:31 AM EST Pulse 79 01/10/2025 11:31 AM EST Temperature 36.6 ??C (97.9 ??F) 01/10/2025 11:[address] Respiratory Rate 18 01/10/2025 11:31 AM EST Oxygen Saturation 96% 01/10/2025 11:31 AM EST Inhaled Oxygen Concentration - - Weight 84.5 kg (186 lb 3.2 oz) 01/10/2025 11:31 AM EST Height - - Body Mass Index 30.99 08/30/2024 8:56 AM EDT documented in this encounter Progress Notes * Nitin Echevarria MD - 01/10/2025 11:00 AM EST Subjective Patient ID: Noreen Wing is a 79 y.o. female who presents for Follow-up. Patient comes for a follow-up visit. She complains of intense anxiety. The patient has years of anxiety, recurrent panic attacks. She has been treated with benzodiazepines for many years. She has a new psychiatrist that is trying to lower her dose of benzodiazepine. She is currently prescribed clonazepam half a milligram twice a day and is due for refill tomorrow. She asked for medication to use today to treat anxiety. She also complains of difficulty sleeping. She has bilateral ear discomfort.No chest pains. No shortness of breath. No fevers or chills. Review of Systems Constitutional: Negative for chills and fever. HENT: Negative for sore throat. Respiratory: Negative for cough, shortness of breath and wheezing. Cardiovascular: Negative for chest pain, palpitations and leg swelling. Gastrointestinal: Negative for abdominal pain. Psychiatric/Behavioral: Positive for sleep disturbance. The patient is nervous/anxious. Visit Vitals BP (!) 146/74 Pulse 79 Temp 97.9 ??F (36.6 ??C) (Temporal) Resp 18 Wt 186 lb 3.2 oz (84.5 kg) SpO2 96% BMI 30.99 kg/m?? Smoking Status Never BSA 1.97 m?? Objective Physical Exam Constitutional: Appearance: Normal appearance. HENT: Right Ear: There is impacted cerumen. Left Ear: There is impacted cerumen. Cardiovascular: Rate and Rhythm: Normal rate and regular rhythm. Heart sounds: No murmur heard. No gallop. Pulmonary: Effort: Pulmonary effort is normal. No respiratory distress. Breath sounds: Normal breath sounds. No wheezing. Musculoskeletal: Right lower leg: No edema. Left lower leg: No edema. Neurological: Mental Status: She is alert. Assessment/Plan Diagnoses and all orders for this visit: Generalized anxiety disorder with panic attacks Comments: I recommended hydroxyzine for intense anxiety for today. I recommended to use her psychiatric medications as prescribed. Continue follow-up with behavioral health therapist and prescribing psychiatrist. Orders: - POCT HGB A1C - POCT Glucose - hydrOXYzine pamoate (Vistaril) 50 MG capsule; Take 1 capsule (50 mg) by mouth every 8 (eight) hours if needed for anxiety for up to 10 days. Cerumen debris on tympanic membrane of both ears Comments: I recommended to use carbamide peroxide. Avoid the use of Q-tips. Return for reevaluation if symptoms of decreased hearing persist in the next 2 or 3 days. Other orders - carbamide peroxide (Debrox) 6.5 % otic solution; Administer 5-10 drops into affected ear(s) 2 times daily for 4 days. documented in this encounter Plan of Treatment Upcoming Encounters Date Type Department Care Team (Late st Contact Info) Description 04/29/2025 10:00 AM EDT Office Visit [facility] [address] [place] [phone] Name, MD Nitin [address] [place] [address] documented as of this encounter Procedures Procedure Name Priority Date/Time Associated Diagnosis Comments POCT GLUCOSE Routine 01/10/2025 11:03 AM EST Generalized anxiety disorder with panic attacks POCT GLYCATED HEMOGLOBIN, TOTAL Routine 01/10/2025 11:02 AM EST Generalized anxiety disorder with panic attacks documented in this encounter Results * POCT Glucose (01/10/2025 11:03 AM EST) Glucose Blood, POC 110 60 - 200 mg/dL QC Media Lot # [id number] Lot# Expiration Date Blood Capillary blood specimen / Unknown 01/10/2025 11:03 AM EST us Nitin Echevarria MD POINT OF CARE TEST ENTER/EDIT OR DERABLES Final Result * POCT HGB A1C (01/10/2025 11:02 AM EST) Hemoglobin A1C 5.1 4.0 - 6.0 % QC Media Lot # [id number] Lot# Expiration Date ,026 Blood 01/10/2025 11:0 2 AM EST us Nitin Echevarria MD POINT OF CARE TEST ENTER/EDIT OR DERABLES Final Result documented in this encounter Visit Diagnoses Diagnosis Generalized anxiety disorder with panic attacks- Primary Cerumen debris on tympanic membrane of both ears documented in this encounter Additional Health Concerns Assessment Noted Time PHQ-9 Depression Total Score: 6 02/13/20 24 9:14 AM EDT documented as of this encounter Care Teams Customer Support Assistant Relationship Specialty Start Date End Date Name, MD Nitin [address] [place] [address] PCP - General Family Medicine 08/26/17 [facility] 09/01/24 documented as of this encounter
--- OUTSIDE RECORDS SUMMARY | 2025-01-18 02:53 | XMS_ITS | Encounter Summary ---
Author Organization [employer] Address [address] [facility] [address] [place] [address] Care Team Providers Care Chemical Blender Name Role Phone Name, Nitin PIKE Primary Care Provider [phone] Encounter Details Date Type Department Care Team ([facility] Contact Info) Description 01/06/2023 Orders Only [facility] [address] [place], [place] [phone] Lisha Kelly LPN Social History Tobacco Use Types Packs/Day Years Used Date Smoking Tobacco: Former Cigarettes Smokeless Tobacco: Never Comments Unknown Sex and Gender Information Value [...] suspected to have Coronavirus/COVID-19? No / Unsure 01/02/2023 8:46 AM EST documented as of this encounter Plan of Treatment Upcoming Encounters Date Type Department Care Team (Late st Contact Info) Description 04/29/2025 10:00 AM EDT Office Visit [facility] [address] [place], [place] [phone] NameNitin MD [address] [place] [address] documented as of this encounter Visit Diagnoses Not on filedocumented in this encounter Care Teams Chemical Blender Relationship Specialty Start Date End Date NameNitin MD [address] [place] [address] PCP - General Family Medicine 08/26/17 [facility] 09/01/24 documented as of this encounter
--- OUTSIDE RECORDS SUMMARY | 2025-01-18 02:53 | XMS_ITS | Encounter Summary ---
Author Organization [employer] Address [address] [facility] [address] [place] [address] Care Team Providers Care Speeder Frame Tender Name Role Phone Name, Nitin PIKE Primary Care Provider [phone] Reason for Visit * Reason Comments Med Refill Encounter Details Date Type Department Care Team (Late st Contact Info) Description 01/03/2025 Refill [facility] [address] [place] [address] [phone] Name, MD Nitin [address] [place] [address] Vertigo; Vitamin D deficiency Social History Tobacco Use Types Packs/Day Years [...] AM EDT Office Visit [facility] [address] [place] [address] NameNitin MD [address] [place] [address] documented as of this encounter Visit Diagnoses Diagnosis Vertigo Dizziness and giddiness Vitamin D deficiency documented in this encounter Additional Health Concerns Assessment Noted Time PHQ-9 Depression Total Score: 6 02/13/20 9:14 AM EDT documented as of this encounter Care Teams Speeder Frame Tender Relationship Specialty Start Date End Date NameNitin MD [address] [place] [phone] PCP - General Family Medicine 08/26/17 [facility] 09/01/24 documented as of this encounter
--- OUTSIDE RECORDS SUMMARY | 2025-01-18 02:53 | XMS_ITS | Clinical Summary ---
Author Organization [employer] Address [address] [place] [address] Care Team Providers Care Sole Polisher Name Role Phone Name, Nitin PIKE Primary Care Provider [phone] Allergies Active Allergy Reactions Criticality Noted Date Comments Clindamycin 04/05/2016 Other reaction(s): Diarrhea Penicillin G High 05/06/2023 Other reaction(s): ITCHY/RASH Other reaction(s): ITCHY/RASH Other reaction(s): ITCHY/RASH Penicillin V Unknown,Rash Low 12/03/2010 Penicillins High 03/17/2023 Other reaction(s): ITCHY/RASH Sulfa Antibiotics Rash High 02/24/2023 Other reaction(s): ITCHY,RASH, rash Other reaction(s): ITCHY,RASH, rash, unknown Other reaction(s): ITCHY,RASH, rash, unknown Other reaction(s): ITCHY,RASH, rash, unknown Sulfamethoxazole-Trimethopr im 04/01/2023 Sulfur Rash Low 03/17/2023 Other reaction(s): unknown Other reaction(s): unknown Other reaction(s): unknown Trimethoprim Hives High 02/24/2023 Medications docusate sodium (Colace) 100 MG capsule TAKE 1 CAPSULE BY MOUTH TWICE DAILY NEEDED FOR CONSTIPATION 023 Active neomycin-polymy ludwig-hydrocortis one (Cortisporin) otic solution USE 5 DROPS IN THE LEFT EAR TWICE DAILY 023 Active zolpidem (Ambien) 5 MG tablet Take 5 mg by mouth if needed at bedtime. 023 Active loratadine (Claritin) 10 MG tablet TAKE 1 TABLET BY MOUTH EVERY DAY 90 tablet 1 023 Active ofloxacin (Floxin) 0.3 % otic solutionIndicat ions:Recurrent acute serous otitis media of left ear INSTILL 5 DROPS INTO THE LEFT EAR 2 TIMES A DAY FOR 7 DAYS 10 mL 023 Active fluticasone (Flonase Allergy Relief) 50 MCG/ACT nasal sprayIndication s:Allergic rhinitis, unspecified seasonality, unspecified trigger Administer 1-2 sprays into each nostril in the morning. 16 g 1 024 Active diphenhydrAMINE (BENADryl) 25 MG tablet Take 1 tablet (25 mg) by mouth if needed at bedtime for itching. 30 tablet 024 Active Blood Pressure Monitoring (3 Series BP Monitor/Upper Arm) device 1 Units in the morning. 1 each 024 Active mirtazapine (Remeron) 45 MG tabletIndicatio ns:Depressive disorder TAKE 1 TABLET BY MOUTH AT BEDTIME 30 tablet 2 024 Active hydrocortisone 2.5 % creamIndication s:Rash Apply topically 2 times daily. 30 g 1 024 Active phenylephrine 0.25% (Hemorrhoidal) 0.25-14-74.9 % ointment APPLY RECTALLY TWICE DAILY NEEDED FOR HEMORRHOIDS 57 g 2 024 Active traZODone (Desyrel) 50 MG tablet Take 1 tablet (50 mg) by mouth if needed at bedtime for sleep. 30 tablet 024 Active ipratropium (Atrovent) 0.03 % nasal spray Administer 2 sprays into each nostril every 12 (twelve) hours. 30 mL 2 024 2024 Active omeprazole (PriLOSEC) [address] capsuleIndicati ons:Heartburn TAKE 1 CAPSULE BY MOUTH EVERY MORNING 1 HOUR BEFORE BREAKFAST 90 capsule 1 024 Active clonazePAM (KlonoPIN) 0.5 MG tablet TOME MITESH TABLETA POR V A ORAL RIZWAN VECES AL D A Active gabapentin (Neurontin) 100 MG capsule TOME 1 C PSULA POR V A ORAL RIZWAN VECES AL D A 024 Active azithromycin (Zithromax Z-Alirio) 250 MG tablet Take 2 tabs day 1 and then 1 tab daily to finish 6 tablet 024 Active Acetaminophen Extra Strength 500 MG tabletIndicatio ns:Chronic bilateral low back pain without sciatica TAKE 1 TABLET BY MOUTH EVERY 8 HOURS NEEDED FOR PAIN (SWISS LABEL) 90 tablet 024 Active ammonium lactate (Lac-Hydrin) 12 % lotion APPLY TOPICALLY TWICE DAILY IN THE MORNING AND AT BEDTIME FOR DRY SKIN Active Bisacodyl EC 5 MG EC tablet TAKE 1 TABLET BY MOUTH EVERY DAY NEEDED FOR CONSTIPATION. DO NOT BREAK, CRUSH, DISSOLVE OR CHEW 30 tablet 3 024 Active polyethylene glycol, PEG, 3350 (GaviLAX) 17 GM/SCOOP powder MIX 17G (1 CAPFUL) IN 8 OUNCES OF WATER AND TAKE BY MOUTH TWICE A DAY 238 g 11 Active sertraline (Zoloft) 100 MG tablet Take 100 mg by mouth in the morning. 024 Active Multiple Vitamin (Multivitamin) tablet TAKE 1 TABLET BY MOUTH EVERY MORNING 90 tablet 3 024 Active rosuvastatin (Crestor) 20 MG tablet TAKE 1 TABLET BY MOUTH EVERY EVENING 90 tablet 3 024 Active zolpidem (Ambien) 5 MG tabletIndicatio ns:Primary insomnia Take 1 tablet (5 mg) by mouth if needed at bedtime for sleep for up to 7 days. 7 tablet 025 Active Linzess 145 MCG capsuleIndicati ons:Chronic constipation TAKE 1 CAPSULE BY MOUTH EVERY DAY BEFORE BREAKFAST, DO NOT BREAK, CRUSH, DISSOLVE OR CHEW 30 capsule 025 Active Aspirin Adult Low Strength 81 MG EC tabletIndicatio ns:Prediabetes TAKE 1 TABLET BY MOUTH EVERY MORNING 90 tablet 1 025 Active meclizine (Antivert) 25 MG tabletIndicatio ns:Vertigo TAKE 1 TABLET BY MOUTH EVERY DAY NEEDED 30 tablet 025 Active Ferrous Sulfate (iron) 325 (65 Fe) MG tablet TAKE 1 TABLET BY MOUTH EVERY MORNING WITH FOOD 30 tablet 025 Active cholecalciferol (Vitamin D-3) 25 MCG tabletIndicatio ns:Vitamin D deficiency TAKE 1 TABLET BY MOUTH TWICE DAILY IN THE MORNING AND IN THE EVENING 60 tablet Active hydrOXYzine pamoate (Vistaril) 50 MG capsuleIndicati ons:Generalized anxiety disorder with panic attacks Take 1 capsule (50 mg) by mouth every 8 (eight) hours if needed for anxiety for up to 10 days. 30 capsule 025 2024 Active FeroSul 325 (65 Fe) MG tablet TAKE 1 TABLET BY MOUTH EVERY MORNING WITH BREAKFAST 30 tablet 11 024 2024 Discontinued Aspirin Low Dose 81 MG EC tabletIndicatio ns:Prediabetes TAKE 1 TABLET BY MOUTH EVERY MORNING 90 tablet 1 024 2024 Discontinued hydrOXYzine HCl (Atarax) 25 MG tablet Take 1 tablet by mouth every 8 (eight) hours if needed for anxiety. 024 2024 Discontinued(D uplicate order (will not trigger notification to Pharmacy)) meclizine (Antivert) 25 MG tabletIndicatio ns:Vertigo TAKE 1 TABLET BY MOUTH EVERY DAY NEEDED 30 tablet 025 2024 Discontinued cholecalciferol (Vitamin D-3) 25 MCG tabletIndicatio ns:Vitamin D deficiency TAKE 1 TABLET BY MOUTH TWICE DAILY IN THE MORNING AND AT BEDTIME 60 tablet 025 2024 Discontinued carbamide peroxide (Debrox) 6.5 % otic solution Administer 5-10 drops into affected ear(s) 2 times daily for 4 days. 30 mL 025 2024 Active Problems Problem Noted Date Diagnosed Date Viral pharyngitis 11/12/2024 Assessment & Plan (11/12/2024 9:40 AM EST): Symptomatic measures Rest Acute viral syndrome 11/02/2024 Closed head injury 11/02/2024 Contusion of knee, left 11/02/2024 Major neurocognitive disorder 11/02/2024 Acute otitis media 04/22/2024 Diarrhea 02/12/2024 Primary insomnia 02/12/2024 Assessment & Plan (11/12/2024 9:40 AM EST): I will prescribe for patient only this time 7 days supply of zolpidem, next refills to be done by her psychiatrist Dr Perea F/u with psychiatrist Nausea 02/12/2024 Suprapubic discomfort 02/12/[address] 02/12/2024 Difficult Shen catheter placement 02/11/2024 Hematuria 02/11/2024 Urinary retention 02/11/2024 Arthritis 12/18/2023 12/18/2023 Fracture of phalanx of finger 12/18/2023 Laceration of extensor muscl e, fascia and tendon of left little finger at forearm level, initial encounter 12/18/202306/2024 Left ear impacted cerumen 12/18/20232023 History of myringotomy 12/18/2023 Overview (12/18/2023): Left sided with tube back on 2010 Abdominal pain 08/19/2023 08/19/2023 Hyperventilation 08/19/2023 08/19/2023 Fall 05/28/2023 Chronic hyponatremia 05/28/2023 Medication refill 05/28/2023 Bleeding hemorrhoids 04/23/2023 PAC (premature atrial contraction) 04/23/2023 Panic attack 04/23/2023 PVC (premature ventricular contraction) 04/23/20 Low blood glucose measurement 04/02/2023 Assessment & Plan (04/02/2023 12:19 PM EDT): Patients blood glucose was 68 upon arriving at clinic today. She was given some water and a nutrigrain bar. Patients blood glucose was checked 30 min after eating and was 125 before leaving. F/up 1 month with PCP, ED precautions advised Stage 3a chronic kidney disease 04/01/2023 Headache 01/02/2023 Overview (12/18/2023): Last Assessment & Plan: Migrane like headache. Patient on chronic BZO, will trial excedrin & reglan for her symptoms. Recommended f/u with PCP. Head CT in ED w/o acute process. Patient was in a hurry to leave given she had another appt. Assessment & Plan (01/02/2023 9:29 AM EST): Migrane like headache. Patient on chronic BZO, will trial excedrin & reglan for her symptoms. Recommended f/u with PCP. Head CT in ED w/o acute process. Patient was in a hurry to leave given she had another appt. Acute anxiety 12/19/2022 Assessment & Plan (01/27/2023 8:28 PM EDT): Sxs anxiety attack, not a panic attack. Counseled re relaxation techniques, breathing, visualization etc. Verify with [facility] re med administration as patient should have enough alprazolam until tomorrow. Pharmacy will be able to deliver next refill then. Add Buspar at noon time, continue bid. Counseled to discuss with MH provider re anxiety. Reassurance re IFG, RBS is wnl Generalized anxiety disorder with panic attacks 12/18/2022 Assessment & Plan (04/02/2023 9:59 AM EDT): The patient is a poor historian. She is requesting more xanax. I tried to explain to her that taking xanax everyday and at higher doses, over time, will decrease its effectiveness and potentially make your anxiety worse. She stated that she needs more because it calms her down. I called [facility] pharmacy to attempt a med rec they instructed me that she is on med box and one week at a time prescriptions because she would break into her med boxes to take more Ambien or xanax. She is being seen by Izzy Perea at [facility]. He is aware of her behavior and is managing her on one week prescriptions at a time. I informed Noreen that I could not change her medications because she has a psychiatrist that is working closely with her. She has an upcoming appointment with her psychiatrist in April. I informed her that if she needed to see him sooner she would need to call and make a sooner appointment. After she left I received a call from the [facility] pharmacy instructing me that she was at the pharmacy requesting the medications that I prescribed her. I informed them that none of her medications are being changed today and she is not receiving any new meds. Elevated lipids 12/30/2018 Chronic otitis media 11/13/2018 Blurring of visual image 09/02/2018 Prediabetes 11/19/2017 Assessment & Plan (01/27/2023 8:28 PM EDT): Patient was concerned re risk of DM. BS today was fairly normal, reassurance and told her to fu w PCP Counseled re low gosia meals, avoid regular sugar, sodas and lots of carbs. Vertigo 11/19/2017 Moderate vascular dementia 09/09/2017 SVT (supraventricular tachycardia) 10/12/2013 Chronic constipation 05/26/2012 Urinary incontinence 05/26/2012 Depressive disorder 05/14/2012 Essential (primary) hypertension 05/14/2012 Assessment & Plan (01/27/2023 8:26 PM EDT): Exacerbated by anxiety. BP improved at the end of visit. No change in meds. FU w PCP Assessment & Plan (12/19/2022 10:42 AM EST): Likely exacerbated by anxiety, improved during visit. She denies other symptoms. She will go home to take her medications. Degeneration of lumbosacral intervertebral disc 05/14/2012 Encounters Date Type Department Care Team Description 01/10/2025 11:00 AM EST Office Visit [facility] [address] [place] [phone] NameNitin MD Generalized anxiety disorder with panic attacks (Primary Dx); Cerumen debris on tympanic membrane of both ears 01/10/2025 Travel 01/09/2025 Refill [facility] [address] [place] [address] Nitin Echevarria MD Hypertension, unspecified type 01/05/2025 Telephone [facility] [address] [place], [place] [phone] Nitin Echevarria MD chartprep 01/03/2025 Refill [facility] [address] [place], [place] [phone] Nitin Echevarria MD Vertigo; Vitamin D deficiency 12/26/2024 Refill [facility] [address] [place] [phone] Nitin Echevarria MD Prediabetes 12/17/2024 Refill [facility] [address] [place] [phone] Daphne Fofana MD Chronic constipation; Vitamin D deficiency 12/06/2024 Refill [facility] [address] [place] [phone] Nitin Echevarria MD Vertigo 11/24/2024 Refill [facility] [address] [place] [phone] Nitin Echevarria MD Vitamin D deficiency; Chronic constipation 11/23/[address] [address] Nitin Echevarria MD Call Back Request 11/15/2024 8:40 AM EST [facility] [address] [address] Christi Gaytan NP Hypertension, unspecified type (Primary Dx); Anxiety about health 11/12/2024 9:20 AM EST [facility] [address] [place] [phone] Noreen Fox MD Viral pharyngitis (Primary Dx); Primary insomnia 11/08/2024 [facility] [address] [place] [phone] Daphne Fofana MD Vertigo 11/08/2024 Telephone [facility] [address] [place] [phone] Nitin Echevarria MD Med Refill 11/07/2024 Refill [facility] [address] [place] [phone] Nitin Echevarria MD 11/05/2024 Telephone [facility] [address] [place] [phone] Nitin Echevarria MD No Show 11/02/2024 Telephone [facility] [address] [place] [phone] Jackie Ward MA Chart Prep 11/02/2024 Telephone [facility] [address] [place] [phone] Lyric Anderson MA feb recalls 10/29/2024 Refill [facility] [address] [place] [address] Nitin Echevarria MD 10/26/2024 Telephone [facility] [address] [place] [address] Nitin Echevarria MD 10/26/2024 Telephone [facility] [address] [place] [address] Zechariah Cheung MD 10/25/2024 Orders Only GENERIC EXTERNAL DATA DEPARTMENT Provider, Generic External Data 10/20/2024 Patient Outreach [facility] [address] [place], [place] [phone] Nitin Ehcevarria MD Pre-visit Planning (HDF scheduled. ) 10/20/2024 Telephone [facility] [address] [place] [address] Nitin Echevarria MD Hospital Follow-up from Last 3 Months Immunizations Name Administration Dates Next Due INFLUENZA VACCINE QUADRIVALE NT RECOMBINANT PRESERVATIVE FREE RIV4 08/13/2020 Influenza High-dose Quadriva lent Preservative Free 07/26/2022 Influenza Quadrivalent Adjuvanted 07/24/2023, Influenza injectable quadriv alent IIV4 with preservative 08/13/2020,08/02/2016,08/28/2015 Influenza, High Dose Seasona l, Preservative Free 08/16/2024,08/05/2017 Influenza, Split (incl. sunita fied surface antigen) 07/19/2013,08/04/2012 Influenza, Unspecified 07/26/2022 Influenza, trivalent, adjuvanted 07/06/2019,0902/2018 Moderna Covid-19 Vaccine 12+ 02/19/2022,01/19/20 21,12/22/2020 Pfizer Covid-19 Vaccine 12+ 08/16/2024,,09/05/2021 Pfizer Covid-19 Vaccine 12+ Bivalent 08/22/2022 Pneumococcal Conjugate PCV 13 06/08/2015 Pneumococcal Conjugate PCV 20 12/26/2023 Pneumococcal Polysaccharide PPSV23 07/21/2019, RSV Bivalent 12/26/2023 TD (adult), 2 Lf tetanus tox oid, preservative free, adsorbed 07/06/2018,05/08/2006 Td (adult), 5 Lf tetanus tox oid, preservative free, adsorbed 12/02/2013 Tdap 10/20/2023,09/08/2012 Zoster, Recombinant 01/19/2020,09/15/2019 Zoster, live 01/19/2020,09/15/2019 Social History Tobacco Use Types Packs/Day Years Used Date Smoking Tobacco: Never Passive Smoke Exposure: Never Smokeless Tobacco: Never Tobacco Cessation:Counseling Given: [...] not to disclose 2021 10:14 AM EDT Last Filed Vital Signs Vital Sign Reading [...] 3.2 oz) 01/10/2025 11:31 AM EST Height 165.1 cm (5' 5 ) 08/30/2024 8:56 AM EDT Body Mass Index 30.99 08/30/2024 8:56 AM EDT Plan of Treatment Upcoming Encounters Date Type Department Care Team (Late st Contact Info) Description 04/29/2025 10:00 AM EDT Office Visit [facility] [address] [place] [address] Name, MD Nitin [address] [place] [address] Health Maintenance Due Date Last Done Comments Depression Screening 02/12/2025 02/13/2024, 02/13/20 Alcohol/Substance Use Screening 06/14/2025 06/14/2024 SDOH Screening 06/14/2025 06/14/2024 Tobacco Screening 11/15/2025 11/15/2024 Diabetes: Hemoglobin A1C 01/10/2026 025, 06/02/2023, 12/25/2022, Additional history exists Lipid Panel 09/19/2027 09/19/2022, 01/08, 04/12/2021 DTaP/Tdap/Td Vaccines (5 - Td or Tdap) 10/20/2033 10/20/2023, 07/06/2018, 12/02/2013, Additional history exists Zoster Vaccines Completed 01/19/2020, 01/08, 09/15/2019, Additional history exists Pneumococcal Vaccine: 50+ Years Completed 12/26/2023, 07/21/2019, 06/08/2015, Additional history exists RSV Patients and Patients Aged 60 years or older Completed 12/26/2023 COVID-19 Vaccine Completed 08/16/2024, , 08/22/2022, Additional history exists Influenza Vaccine Completed 08/16/2024, [...] patient's age to complete this topic Meningococcal Vaccine Aged Out No adriana kirit eligible based on patient's age to complete this topic RSV under 20 months Aged Out No longe r eligible based on patient's age to complete this topic Rotavirus Vaccines Aged Out No longer eligible based on patient's age to complete this topic Procedures Procedure Name Priority Date/Time Associated Diagnosis Comments POCT GLUCOSE Routine 01/10/2025 11:03 AM EST Generalized anxiety disorder with panic attacks POCT GLYCATED HEMOGLOBIN, TOTAL Routine 01/10/2025 11:02 AM EST Generalized anxiety disorder with panic attacks HIGH SENSITIVITY TROPONIN I Routine 10/25/2024 8:32 PM EST MAGNESIUM Routine 10/25/2024 8:32 PM EST COMPREHENSIVE METABOLIC PANEL Routine 10/25/2024 8:32 PM EST CBC WITH AUTO DIFFERENTIAL Routine 10/25/2024 8:32 PM EST LIPID PANEL, STANDARD Routine 09/19/2022 8:08 AM EST from Last 3 Months or Most Recently Relevant to Health Maintenance Results * POCT Glucose (01/10/2025 11:03 AM EST) Pathologist [facility] Glucose Blood, POC 110 60 - 200 mg/dL QC Media Lot # [id number] Lot# Expiration Date Blood Capillary blood specimen / Unknown 01/10/2025 11:03 AM EST Nitin Wale PIKE POINT OF CARE TEST ENTER/EDIT OR DERABLES Final Result * POCT HGB A1C (01/10/2025 11:02 AM EST) Pathologist [facility] Hemoglobin A1C 5.1 4.0 - 6.0 % QC Media Lot # [id number] Lot# Expiration Date Blood 01/10/2025 11:0 2 AM EST Nitin Wale PIKE POINT OF CARE TEST ENTER/EDIT OR DERABLES Final Result * High Sensitivity Troponin I (10/25/2024 8:32 PM EST) Pathologist [facility] TROPONIN I HIGH SENSITIVITY <2.7 <3.5 - 17.0 ng/L [facility] Comment:The Mckeon high sens itivity Troponin-I results should beused in conjunction with other diagnostic information suchas ECG, clinical observations and information, and patientsymptoms to aid in the diagnosis of GA. 10/25/2024 8:32 PM EST 10/25/2024 8:37 PM EST us Generic External Data Provider LAB BLOOD ORDERAB LES Final Result [facility] [address] [place] [phone] * (ABNORMAL) CBC auto differential (10/25/2024 8:32 PM EST) White Blood Count 8.2 4.8 - 10.8 X10*3/uL [facility] Red Blood Count 3.84(L) 4.20 - 5.50 X10*6/uL [facility] Hemoglobin 11.1(L) 12.0 - 16.0 g/dl [facility] Hematocrit 32.6(L) 37.0 - 47.0 % [facility] Mean Corpuscular Volume 84.9 80.0 - 98.0 fL [facility] Mean Corpuscular Hemoglobin 28.9 27.0 - 33.0 pg [facility] Mean Corpuscular HGB Conc 34.0 31.0 - 35.0 g/dl [facility] Red Cell Distribution Width 14.0 11.0 - 16.0 % [facility] Platelet Count 320 160 - 400 X10*3/uL [facility] Mean Platelet Volume 8.0(L) 9.4 - 12.3 fL [facility] Neutrophils Percent Auto 53.7 45 - 73 % [facility] Imm Gran Pct Auto 1.1(H) 0.0 - 0.4 % [facility] Lymphocytes Percent Auto 32.8 20 - 40 % [facility] Monocytes Percent Auto 9.4 2 - 11 % [facility] Eosinophils Percent Auto 2.0 0 - 4 % [facility] Basophils Percent Auto 1.0 0 - 2 % [facility] NRBC Pct Auto 0.0 0.0 - 0.2 /100WBC [facility] Neutrophils Absolute Auto 4.4 2.0 - 8.3 x10*3/uL [facility] Imm Gran Abs Auto 0.09(H) 0.00 - 0.03 X10*3/uL [facility] Lymphocytes Absolute Auto 2.7 1.2 - 4.9 X10*3/uL [facility] Monocytes Absolute Auto 0.8 0.1 - 1.2 X10*3/uL [facility] Eosinophils Absolute Auto 0.2 0.0 - 0.4 X10*3/uL [facility] Basophils Absolute Auto 0.1 0.0 - 0.2 X10*3/uL [facility] NRBC Abs Auto 0.000 0.0 - 0.012 X10*3/uL [facility] 10/25/2024 8:32 PM EST 10/25/2024 8:37 PM EST Generic External Data Provider LAB BLOOD ORDERAB LES Final Result Performing Organization Address [facility] de Phone Number [facility] [address] [place] [phone] * Magnesium (10/25/2024 8:32 PM EST) [facility] Magnesium 2.2 1.6 - 2.6 mg/dL [facility] 10/25/2024 8:32 PM EST 10/25/2024 8:37 PM EST [employer] External Data Provider LAB BLOOD ORDERAB LES Final Result Performing Organization Address [facility] Phone Number [facility] [address] [place] [phone] * (ABNORMAL) Comprehensive Metabolic Panel (10/25/2024 8:32 PM EST) [facility] Sodium 135 135 - 145 mmol/L [facility] Potassium 4.5 3.3 - 5.1 mmol/L [facility] Chloride 104 96 - 108 mmol/L [facility] Carbon Dioxide 25 22 - 29 mmol/L [facility] Anion Gap 11(L) 12 - 20 [facility] Urea Nitrogen (BUN) 26(H) 9 - 16 mg/dL [facility] Creatinine, Serum 1.03 0.5 - 1.4 mg/dL [facility] Creatinine Clr Calc Pharmacy 44.5 [facility] Comment:Provided height and weight: 162.56 cm,82.4 kg.eGFR (calculated from the MDRD study equation) and eCrCl(calculated from the Cockcroft-Gault equation) are based ondifferent parameters and may not yield comparable results.If eCrCl result is absurd, please check patient'sheight/weight. Estimated Glomerular Filt Rate 51 [facility] Comment:Chronic Kidney Disea se: Estimated GFR < 60 mL/min/1.15b3Lawbqw Kidney Disease: Estimated GFR < 15 mL/min/1.73m2 Glucose 106 60 - 115 mg/dL [facility] Calcium 8.5 8.4 - 10.2 mg/dL [facility] Bilirubin, Total 0.3 0.0 - 1.0 mg/dL [facility] Aspartate Amino Transferase 25 5 - 31 U/L [facility] Alanine Aminotransferase 19 0 - 31 U/L [facility] Total Protein 7.8 6.5 - 8.0 g/dL [facility] Albumin Level 4.0 3.5 - 5.0 g/dL [facility] Alkaline Phosphatase 62 39 - 117 U/L [facility] 10/25/2024 8:32 PM EST 10/25/2024 8:37 PM EST us Generic External Data Provider LAB BLOOD ORDERAB LES Final Result [facility] [address] [place] [phone] * (ABNORMAL) LIPID PANEL, STANDARD (09/19/2022 8:08 AM EST) Chol/HDLC Ratio 2.9 <5.0 (calc) [facility] Cholesterol, Total 135 <200 mg/dL [facility] HDL Cholesterol 47(L) > OR = 50 mg/dL [facility] LDL Cholesterol 65 mg/dL (calc) [facility] Comment: Reference range: <100 ?? Desirable range <100 mg/dL for primary prevention; ?? <70 mg/dL for patients with CHD or diabetic patients ?? with > or = 2 CHD risk factors. ?? LDL-C is now calculated using the Jack-Kaminski ?? calculation, which is a validated novel method providing ?? better accuracy than the Friedewald equation in the ?? estimation of LDL-C. ?? Jack SS et al. JITENDRA. 2013;310(19): 5096-6279 ?? (http://dynaTrace software.Advaction/faq/NZM242) Non-HDL Cholesterol 88 <130 mg/dL (calc) CONVERT[facility] Comment: For patients with diabetes plus 1 major ASCVD risk ?? factor, treating to a non-HDL-C goal of <100 mg/dL ?? (LDL-C of <70 mg/dL) is considered a therapeutic ?? option. Triglycerides 143 <150 mg/dL CONVE RTED [facility]GACY LABS 09/19/2022 8:08 AM EST us Karely Patiño MD LAB BLOOD ORDERABLES Final Resul t CONVERTED [facility]GAC[facility] from Last 3 Months or Most Recently Relevant to Health Maintenance Insurance [facility] Care Teams Sole Polisher Relationship Specialty Start Date End Date Name, MD Nitin [address] [place] [id number] PCP - General Family Medicine 08/26/17 [facility] 09/01/24
--- OUTSIDE RECORDS SUMMARY | 2025-01-18 02:53 | XMS_ITS | Encounter Summary ---
Author Organization [employer] Address [address] [facility] 7[address] [place] [address] Care Team Providers Care Wheel Aligner Name Role Phone Name, Nitin PIKE Primary Care Provider [phone] Reason for Visit * Reason Onset Date Comments Verbal Orders 12/15/2023 Encounter Details Date Type Department Care Team ([facility] st Contact Info) Description 12/15/2023 Telephone [facility] [address] [place], [place] [phone] Name, MD Nitin [address] [place] [address] Verbal Orders Social History Tobacco Use Types [...] encounter Miscellaneous Notes * Telephone Encounter - Deana Bazzi - 12/15/2023 12:03 PM EST Tc from [facility] with [facility] requesting verbal order to see pt 2 times a week for 4 weeks for Occupational Therapy, please contact [facility] at [phone] documented in this encounter Plan of Treatment Upcoming Encounters Date Type Department Care Team (Late st Contact Info) Description 04/29/2025 10:00 AM EDT Office Visit [facility] [address] [place] [address] Name, MD Nitin [address] [place] [address] documented as of this encounter Visit Diagnoses Not on filedocumented in this encounter Additional Health Concerns Assessment Noted Time PHQ-9 Depression Total Score: 12 023 9:37 AM EDT documented as of this encounter Care Teams Wheel Aligner Relationship Specialty Start Date End Date NameNitin MD [address] [place] [address] PCP - General Family Medicine 08/26/17 [facility] 09/01/24 documented as of this encounter
--- OUTSIDE RECORDS SUMMARY | 2025-01-18 02:53 | XMS_ITS | Encounter Summary ---
Author Organization [employer] Address [address] [facility] [address] [place] [address] Care Team Providers Care Factory Supervisor Name Role Phone Name, Nitin PIKE Primary Care Provider Reason for Visit * Reason Comments Med Refill Encounter Details Date Type Department Care Team ([facility] st Contact Info) Description 08/16/2024 Refill [facility] [address] [place], [place] [phone] Name, MD Nitin [address] [place] [address] Heartburn Social History Tobacco Use Types Packs/Day Years [...] 10:00 AM EDT Office Visit [facility] [address] [place] [phone] NameNitin MD [address] [place] [address] documented as of this encounter Visit Diagnoses Diagnosis Heartburn documented in this encounter Additional Health Concerns Assessment Noted Time PHQ-9 Depression Total Score: 6 02/13/20 9:14 AM EDT documented as of this encounter Care Teams Factory Supervisor Relationship Specialty Start Date End Date NameNitin MD [address] [place] [address] PCP - General Family Medicine 08/26/17 [facility] 09/01/24 documented as of this encounter
--- OUTSIDE RECORDS SUMMARY | 2025-01-18 02:53 | XMS_ITS | Encounter Summary ---
Author Organization [employer] Address [address] [facility] [address] [place] [address] Care Team Providers Care Spa Technician Name Role Phone Name, Nitin PIKE Primary Care Provider [phone] Reason for Visit * Reason Comments Med Refill Encounter Details Date Type Department Care Team (Late Contact Info) Description 03/02/2023 Refill [facility] [address] [place] [phone] Karely Patiño MD [address] [place] [address] [phone] Social History Tobacco Use Types Packs/Day Years [...] suspected to have Coronavirus/COVID-19? No / Unsure 03/04/2023 8:48 AM EDT documented as of this encounter Plan of Treatment Upcoming Encounters Date Type Department Care Team (Late st Contact Info) Description 04/29/2025 10:00 AM EDT Office Visit [facility] [address] [place] [phone] Wale, MD Nitin [address] [place] [address] documented as of this encounter Visit Diagnoses Not on filedocumented in this encounter Care Teams Spa Technician Relationship Specialty Start Date End Date Name, MD Nitin [address] [place] [address] PCP - General Family Medicine 08/26/17 [facility] 09/01/24 documented as of this encounter
--- OUTSIDE RECORDS SUMMARY | 2025-01-18 02:53 | XMS_ITS | Encounter Summary ---
Author Organization [employer] Address 75 [facility] 7[address] [place] [address] Care Team Providers Care Blunger Name Role Phone Name, Nitin PIKE Primary Care Provider [phone] Reason for Visit * Reason Onset Date Comments Order(s) 12/09/2023 Encounter Details Date Type Department Care Team ([facility] st Contact Info) Description 12/09/[address] [facility] [address] [place], [place] [phone] Name, MD Nitin [address] [place], [place] [phone] Order(s) Social History Tobacco Use Types Packs/Day Years [...] encounter Miscellaneous Notes * Telephone Encounter - Adithya Solorzano - 12/09/2023 4:22 PM EST Tc from [facility] requesting [facility] orders for pt. [facility] is also requesting out patient PT orders. If any questions please contact [facility] [phone]. documented in this encounter Plan of Treatment Upcoming Encounters Date Type Department Care Team (Late st Contact Info) Description 04/29/2025 10:00 AM EDT Office Visit [facility] [address] [place] [phone] Name, MD Nitin [address] [place] [address] documented as of this encounter Visit Diagnoses Not on filedocumented in this encounter Additional Health Concerns Assessment Noted Time PHQ-9 Depression Total Score: 12 023 9:37 AM EDT documented as of this encounter Care Teams Blunger Relationship Specialty Start Date End Date Name, MD Nitin [address] [place] [phone] PCP - General Family Medicine 08/26/17 [facility] 09/01/24 documented as of this encounter
--- OUTSIDE RECORDS SUMMARY | 2025-01-18 02:53 | XMS_ITS | Encounter Summary ---
Author Organization [employer] Address [address] [facility] 7[address] [place] [address] Care Team Providers Care Radiologic Electronic Specialist Name Role Phone Name, Nitin PIKE Primary Care Provider [phone] Encounter Details Date Type Department Care Team (Latest Contact Info) Description 01/10/2025 Travel Social History Tobacco Use Types Packs/Day Years [...] 10:00 AM EDT Office Visit [facility] [address] [place] [phone] Name, MD Nitin [address] [place] [address] documented as of this encounter Visit Diagnoses Not on filedocumented in this encounter Additional Health Concerns Assessment Noted Time PHQ-9 Depression Total Score: 6 02/13/20 9:14 AM EDT documented as of this encounter Care Teams Radiologic Electronic Specialist Relationship Specialty Start Date End Date NameNitin MD [address] [place] [id number] PCP - General Family Medicine 08/26/17 [facility] 09/01/24 documented as of this encounter
--- OUTSIDE RECORDS SUMMARY | 2025-01-18 02:53 | XMS_ITS | Encounter Summary ---
Author Organization [employer] Address [address] [facility] [address] [place] [address] Care Team Providers Care Actuarial Associate Name Role Phone Name, Nitin PIKE Primary Care Provider [phone] Reason for Visit * Reason Comments Med Refill Encounter Details Date Type Department Care Team (Late st Contact Info) Description 01/09/2025 Refill [facility] [address] [place] [address] [phone] Name, MD Nitin [address] [place] [address] Hypertension, unspecified type Social History Tobacco Use Types Packs/Day Years [...] Description 04/29/2025 10:00 AM EDT Office Visit [facility] [address] [place] [phone] NameNitin MD [address] [place] [address] documented as of this encounter Visit Diagnoses Diagnosis Hypertension, unspecified type documented in this encounter Additional Health Concerns Assessment Noted Time PHQ-9 Depression Total Score: 6 02/13/20 9:14 AM EDT documented as of this encounter Care Teams Actuarial Associate Relationship Specialty Start Date End Date Name, MD Nitin [address] [place] [address] PCP - General Family Medicine 08/26/17 [facility] 09/01/24 documented as of this encounter
[2025-01-18 04:00] VITALS: BP 145/78; PULSE 80; RESP 17; TEMP 36.8; O2SAT 96
[2025-01-18] MEDS: Acetaminophen 325 MG TABLET 650 MG PO (04:18)
--- NOTE | 2025-01-18 04:33 | ED.GENADULT ---
HPI - General Adult General Chief complaint: General Medical Stated complaint: HIGHBLOOD PRESSURE Time Seen by Provider: 01/18/25 04:33 Source: patient and EMS Mode of arrival: EMS Limitations: no limitations History of Present Illness ED Provider: DR. Henriquez HPI narrative: 79-year-old female come to the emergency department complaining of anxiety, patient is well known to our staff in the emergency department for frequent visits for anxiety, patient stated that her grandson is not doing well and she is feeling very anxious because that. stated that she checked her blood pressure before coming here and was high. Otherwise Complaining of sore throat and nasal congestion, no chest pain, no abdominal pain. Related Data Home Medications ?Medication ?Instructions ?Recorded ?Confirmed mirtazapine 45 mg tablet 45 mg PO BEDTIME 08/09/20 09/29/24 omeprazole 20 mg tablet,delayed 20 mg PO DAILY@0630 08/09/20 09/29/24 release aspirin 81 mg tablet,delayed 81 mg PO QAM 01/28/24 09/29/24 release bisacodyl 5 mg tablet,delayed 5 mg PO DAILY PRN constipation 01/28/24 09/29/24 release diphenhydramine HCl 25 mg tablet 25 mg PO BEDTIME PRN itch 01/28/24 09/29/24 (Lou-Dryl) ferrous sulfate 325 mg (65 mg 325 mg PO DAILY 01/28/24 09/29/24 iron) tablet (FeroSul) melatonin 10 mg tablet,extended 10 mg PO BEDTIME PRN Insomnia 01/28/24 09/29/24 release multivitamin 1 tab PO QAM 01/28/24 09/29/24 rosuvastatin 20 mg tablet 20 mg PO BEDTIME 01/28/24 09/29/24 trazodone 50 mg tablet 50 mg PO BEDTIME 01/28/24 09/29/24 amlodipine 10 mg tablet 10 mg PO DAILY 02/09/24 09/29/24 acetaminophen 500 mg tablet 500 mg PO Q8H PRN pain 08/09/24 09/29/24 ipratropium bromide 21 mcg (0.03 2 spray intranasal BID 08/09/24 09/29/24 %) nasal spray zolpidem 5 mg tablet 5 mg PO BEDTIME PRN Insomnia 08/09/24 09/29/24 cholecalciferol (vitamin D3) 25 25 mcg PO DAILY 10/11/24 11/20/24 mcg (1,000 unit) tablet meclizine 25 mg tablet 25 mg PO DAILY PRN 09/29/24 09/29/24 Previous Rx's ?Medication ?Instructions ?Recorded metoprolol succinate 50 mg 50 mg PO DAILY #90 tabs 09/28/20 tablet,extended release 24 hr fluticasone propionate 50 2 spray intranasal DAILY #16 grams 09/16/23 mcg/actuation nasal spray,suspension (Flonase Allergy Relief) ondansetron 4 mg disintegrating 4 mg PO Q6H PRN nausea and 04/28/24 tablet vomiting #10 tabs hydroxyzine HCl 25 mg tablet 25 mg PO TID PRN anxiety #6 tabs 08/07/24 clonazepam 0.5 mg tablet 0.5 mg PO TID #180 tabs 08/10/24 gabapentin 100 mg capsule 100 mg PO TID #180 caps 08/10/24 valsartan 160 mg tablet 160 mg PO DAILY #90 tabs 08/20/24 hydroxyzine HCl 25 mg tablet 25 mg PO TID PRN anxiety #20 tabs 09/09/24 miconazole nitrate 2 % vaginal 1 appful vaginal BEDTIME 7 days 10/09/24 cream (Monistat 7) #45 grams nitrofurantoin 100 mg PO Q12H 3 days #6 caps 10/09/24 monohydrate/macrocrystals 100 mg capsule (Macrobid) miconazole nitrate 2 % topical 1 appl topical BID #28 grams 01/01/25 cream Allergies Allergy/AdvReac Type Severity Reaction Status Date / Time penicillin G [Penicillin G] Allergy Severe ITCHY/RASH Verified 01/18/25 01:17 Sulfa (Sulfonamide Allergy Severe ITCHY,RASH, Verified 01/18/25 01:17 Antibiotics) rash [Sulfa (Sulfonamides)] trimethoprim [From Bactrim] Allergy Severe HIVES Verified 01/18/25 01:17 Penicillins Allergy Intermediate Hives Verified 01/18/25 01:17 sulfamethoxazole Allergy Mild Hives Verified 01/18/25 01:17 [From Bactrim] Review of Systems Review of Systems: All other systems are reviewed and are negative Constitutional: Reports as per HPI and Reports no additional constitutional complaints Eyes: Reports as per HPI and Reports no additional eye complaints Reports system reviewed and no additional complaints, except as documented Cardiovascular: Reports as per HPI and Reports no additional cardiovascular complaints Respiratory: Reports as per HPI and Reports no additional respiratory complaints Gastrointestinal: Reports as per HPI and Reports no additional gastrointestinal complaints Genitourinary: Reports no additional female genitourinary complaints Musculoskeletal: Reports no additional musculoskeletal complaints Skin/Breast: Reports system reviewed and no additional complaints, except as docu Psychiatric: Reports no additional psychiatric complaints Endocrine: Reports no additional endocrine complaints Hematologic/Lymphatic: Reports no additional hematologic/lymphatic complaints Allergic/Immunologic: Reports no additional allergic/immunologic complaints Reports system reviewed and no additional complaints, except as documented and Reports Abnormal speech present [facility] Past Medical History 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 or 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 (usability architect) Unable to assess alcohol history related to: Unknown Alcohol intake: never Patient Tobacco Use Status: Never used Tobacco Smoked in Last 30 Days: No Use of substances other than those prescribed or required for medical reasons: No Advance Directives: Yes Advance Directives on File: Yes Advance Directives Date on File: 01/28/24 Do you have a plan to hurt others: No Plan service: No Physical Exam ED Vital Signs: Vital Signs - 24 hr 01/18/25 01:14 Temperature 97.8 F Pulse Rate 100 Respiratory Rate 18 Blood Pressure 148/85 H Pulse Oximetry 98 Oxygen Delivery Method Room Air BMI result Body Mass Index 31.6 Vital signs have been reviewed and appear to be correct. Blood pressure elevated. Heart rate normal. Respiratory rate normal. Temperature normal. Oxygen saturation normal. Appearance: Anxious, Alert. Oriented X3. No acute distress. Head: Normal external exam. Normocephalic. Atraumatic. No Gomes signs noted. No raccoon eyes noted Eyes: PERRLA. EOMI. Conjunctiva and sclera normal. Eyelids normal. ENT: TM's Normal. Pharynx normal. Uvula midline. Moist mucous membranes. No trismus noted. No drooling noted. No muffled voice noted. Neck: Normal inspection. Neck supple. FROM. No adenopathy. Thyroid Normal. No meningeal signs. No neck mass noted. CVS: Normal heart rate and rhythm. Heart sound normal. No murmurs noted. Pulses normal throughout. Respiratory: No respiratory distress. Painless inspiration. Breath sounds normal. No wheezes/rales/rhonchi noted. Chest nontender. No accessory muscle usage noted or decreased air movement noted. Abdomen: Soft and nontender. Bowel sounds normal in all 4 quadrants. No distention noted. No organomegaly noted. No visible injury noted. Back: No CVA tenderness. Full range of motion noted. Skin: Skin warm and dry. Normal skin color. Normal skin turgor. No rashes/lesions/lacerations noted. Extremities: No lower extremity edema. Extremities exhibit normal range of motion. Extremities nontender. Neuro: Oriented X 3. Cranial nerve exam: II-XII are grossly intact No motor deficit. No sensory deficit. Reflexes normal. Course Reevaluation(s) Reevaluation #1: feels better, VSS, asking to go home. patient is will known to myself, at her baseline normal will discharge. Time: 06:00 Medications Administered Discontinued Medications Generic Name Dose Route Start Last Admin Trade Name Freq PRN Reason Stop Dose Admin Acetaminophen 650 mg 01/18/25 04:12 01/18/25 04:18 Acetaminophen 325 Mg Tablet PO 01/18/25 04:13 650 mg ONCE ONE Administration Medical Decision Making Differential Diagnosis Differential Diagnoses: The differential diagnosis associated with the presentation includes ( Anxiety, hypertension, upper respiratory viral infection.) Admission/Observation Consideration of admission/observation: Escalation of care including admission/observation considered Lab Data MDM Lab Attestation statement: I reviewed the patient's lab results. Labs: Lab Results 01/18/25 Range/Units 01:43 Influenza Type A (PCR) NEGATIVE (Negative) Influenza Type B (PCR) NEGATIVE (Negative) RSV RNA Qual (PCR) NEGATIVE (Negative) SARS-CoV-2 RNA (RT-PCR) NEGATIVE (Negative) S. pyogenes GrpA MYAH Negative (Negative) Discharge Plan Discharge Clinical Impression: Generalized anxiety disorder with panic attacks Patient Disposition: Still a Patient Instructions: Anxiety (ED) Prescriptions: No Action metoprolol succinate 50 mg tablet extended release 24 hr 50 mg PO DAILY Qty: 90 2RF mirtazapine 45 mg Tablet 45 mg PO BEDTIME omeprazole 20 mg Tablet,Delayed Release (Dr/Ec) 20 mg PO DAILY@0630 fluticasone propionate [Flonase Allergy Relief] 50 mcg/actuation spray,suspension 2 spray intranasal DAILY Qty: 16 0RF Rx Instructions: administer into each nostril hydroxyzine HCl 25 mg tablet 25 mg PO TID PRN (Reason: anxiety) Qty: 6 0RF hydroxyzine HCl 25 mg tablet 25 mg PO TID PRN (Reason: anxiety) Qty: 20 0RF miconazole nitrate 2 % cream 1 appl topical BID Qty: 28 0RF trazodone 50 mg tablet 50 mg PO BEDTIME ferrous sulfate [FeroSul] 325 mg (65 mg iron) tablet 325 mg PO DAILY diphenhydramine HCl [Lou-Dryl] 25 mg tablet 25 mg PO BEDTIME PRN (Reason: itch) bisacodyl 5 mg tablet,delayed release (DR/EC) 5 mg PO DAILY PRN (Reason: constipation) rosuvastatin 20 mg tablet 20 mg PO BEDTIME aspirin 81 mg tablet,delayed release (DR/EC) 81 mg PO QAM multivitamin Tablet 1 tab PO QAM melatonin 10 mg tablet extended release 10 mg PO BEDTIME PRN (Reason: Insomnia) cholecalciferol (vitamin D3) 25 mcg (1,000 unit) tablet 25 mcg PO DAILY ondansetron 4 mg tablet,disintegrating 4 mg PO Q6H PRN (Reason: nausea and vomiting) Qty: 10 0RF acetaminophen 500 mg tablet 500 mg PO Q8H PRN (Reason: pain) zolpidem 5 mg tablet 5 mg PO BEDTIME PRN (Reason: Insomnia) ipratropium bromide 21 mcg (0.03 %) spray,non-aerosol 2 spray intranasal BID clonazepam 0.5 mg Tablet 0.5 mg PO TID Qty: 180 0RF gabapentin 100 mg Capsule 100 mg PO TID Qty: 180 0RF nitrofurantoin monohyd/m-cryst [Macrobid] 100 mg capsule 100 mg PO Q12H 3 Days Qty: 6 0RF Rx Instructions: must administer with a meal/food miconazole nitrate [Monistat 7] 2 % cream 1 appful vaginal BEDTIME 7 Days Qty: 45 0RF valsartan 160 mg tablet 160 mg PO DAILY Qty: 90 1RF amlodipine 10 mg tablet 10 mg PO DAILY meclizine 25 mg tablet 25 mg PO DAILY PRN Print Language: Mongolian
[2025-01-18] MEDS: hydrOXYzine HCL 25 MG TABLET PO (05:31)
[2025-01-18 06:06] VITALS: BP 158/72; PULSE 82; RESP 19; TEMP 36.7; O2SAT 95
[2025-01-18 06:42] VITALS: BP 158/72; PULSE 82; RESP 19; TEMP 36.7; O2SAT 95
== END 2025-01-18 06:51 | disposition home or self-care (01) ==
PROVIDERS: Emergency Provider Emergency Medicine
DX: F41.0 Panic disorder [episodic paroxysmal anxiety] (principal); F41.9 Anxiety disorder, unspecified; Z03.818 Encounter for observation for suspected exposure to other biological agents ruled out
CPT/HCPCS: 0241U; 87651; 99283; 99284

== ENCOUNTER 2025-01-24 20:41 | Emergency (ER) | payer OTHER, SELFPAY ==
[2025-01-24 20:48] VITALS: BP 132/81; BP 145/101; PULSE 88; PULSE 90; RESP 18; TEMP 37; O2SAT 96; O2SAT 98; BMI 35.9
--- NOTE | 2025-01-24 20:51 | ED_ITS ---
HPI - General Adult General Chief complaint: Upper Respiratory Symptoms Stated complaint: flu like symptoms Time Seen by Provider: 01/24/25 23:52 Source: patient Mode of arrival: ambulatory Limitations: no limitations History of Present Illness ED Provider: Dr. Marta Briscoe HPI narrative: Patient comes to the emergency room complaining of nasal congestion and anxiety. Patient complaining of mild headache, some cough. Patient also reports feeling very anxious. Patient states that she gets her medications refilled today and is asking for a 1 time dose of anxiety meds. Patient denies SI or HI Related Data Home Medications ?Medication ?Instructions ?Recorded ?Confirmed mirtazapine 45 mg tablet 45 mg PO BEDTIME 08/09/20 09/29/24 omeprazole 20 mg tablet,delayed 20 mg PO DAILY@0630 08/09/20 09/29/24 release aspirin 81 mg tablet,delayed 81 mg PO QAM 01/28/24 09/29/24 release bisacodyl 5 mg tablet,delayed 5 mg PO DAILY PRN constipation 01/28/24 09/29/24 release diphenhydramine HCl 25 mg tablet 25 mg PO BEDTIME PRN itch 01/28/24 09/29/24 (Lou-Dryl) ferrous sulfate 325 mg (65 mg 325 mg PO DAILY 01/28/24 09/29/24 iron) tablet (FeroSul) melatonin 10 mg tablet,extended 10 mg PO BEDTIME PRN Insomnia 01/28/24 09/29/24 release multivitamin 1 tab PO QAM 01/28/24 09/29/24 rosuvastatin 20 mg tablet 20 mg PO BEDTIME 01/28/24 09/29/24 trazodone 50 mg tablet 50 mg PO BEDTIME 01/28/24 09/29/24 amlodipine 10 mg tablet 10 mg PO DAILY 02/09/24 09/29/24 acetaminophen 500 mg tablet 500 mg PO Q8H PRN pain 08/09/24 09/29/24 ipratropium bromide 21 mcg (0.03 2 spray intranasal BID 08/09/24 09/29/24 %) nasal spray zolpidem 5 mg tablet 5 mg PO BEDTIME PRN Insomnia 08/09/24 09/29/24 cholecalciferol (vitamin D3) 25 25 mcg PO DAILY 08/20/24 09/29/24 mcg (1,000 unit) tablet meclizine 25 mg tablet 25 mg PO DAILY PRN 09/29/24 09/29/24 Previous Rx's ?Medication ?Instructions ?Recorded metoprolol succinate 50 mg 50 mg PO DAILY #90 tabs 09/28/20 tablet,extended release 24 hr fluticasone propionate 50 2 spray intranasal DAILY #16 grams 09/16/23 mcg/actuation nasal spray,suspension (Flonase Allergy Relief) ondansetron 4 mg disintegrating 4 mg PO Q6H PRN nausea and 04/28/24 tablet vomiting #10 tabs hydroxyzine HCl 25 mg tablet 25 mg PO TID PRN anxiety #6 tabs 08/07/24 clonazepam 0.5 mg tablet 0.5 mg PO TID #180 tabs 08/10/24 gabapentin 100 mg capsule 100 mg PO TID #180 caps 08/10/24 hydroxyzine HCl 25 mg tablet 25 mg PO TID PRN anxiety #20 tabs 09/09/24 miconazole nitrate 2 % vaginal 1 appful vaginal BEDTIME 7 days 10/09/24 cream (Monistat 7) #45 grams nitrofurantoin 100 mg PO Q12H 3 days #6 caps 10/09/24 monohydrate/macrocrystals 100 mg capsule (Macrobid) miconazole nitrate 2 % topical 1 appl topical BID #28 grams 01/01/25 cream valsartan 160 mg tablet 160 mg PO DAILY #90 tabs 01/20/25 Allergies Allergy/AdvReac Type Severity Reaction Status Date / Time penicillin G [Penicillin G] Allergy Severe ITCHY/RASH Verified 01/24/25 20:52 Sulfa (Sulfonamide Allergy Severe ITCHY,RASH, Verified 01/24/25 20:52 Antibiotics) rash [Sulfa (Sulfonamides)] trimethoprim [From Bactrim] Allergy Severe HIVES Verified 01/24/25 20:52 Penicillins Allergy Intermediate Hives Verified 01/24/25 20:52 sulfamethoxazole Allergy Mild Hives Verified 01/24/25 20:52 [From Bactrim] Review of Systems Review of Systems: Constitutional : No Weight loss, No Fever, No Chills, No Night Sweats, No Fatigue, No Malaise ENT/Mouth : No Hearing loss, No Ear Pain, complaining of nasal congestion and mild sore throat Eyes: No Eye Pain, No Swelling, No Redness, No Foreign Body, No Discharge, No Vision Changes Cardiovascular : No Chest Pain, No SOB, No Dyspnea on Exertion, No Orthopnea, No Edema, No Palpitations Respiratory : No Cough, No Sputum, No Wheezing, No Smoke Exposure, No Dyspnea Gastrointestinal : No Nausea, No Vomiting, No Diarrhea, No Constipation, No abdominal Pain, No Hematochezia, No Melena Genitourinary : no irregular bleeding, No Dysuria, No Urinary Frequency, No Hematuria, No Urinary Incontinence, No Urgency, No Flank Pain, No Urinary Flow Changes, No Hesitancy Musculoskeletal : No joint pain, No Myalgias, No Joint Swelling Skin : No Skin Lesions, No rash Neuro : No Weakness, No Numbness, No Paresthesias, No Loss of Consciousness, No Dizziness, complaining of mild Headache Psych : Complaining of Anxiety/Panic, No Depression, No SI/HI/AH/VH, No Social Issues, Heme/Lymph: No Bruising, No Bleeding,No Lymphadenopathy Endocrine : No Polyuria, No Polydipsia, No Temperature Intolerance [facility] Past Medical History 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 Oriented X3. No acute distress. Eyes: Pupils equal, round and reactive to light. ENT: Pharynx normal. Patient has nasal congestion, no abscesses, no exudates, no angioedema or swelling Neck: Normal inspection. Neck supple. No lymph nodes noted. No crepitus CVS: Normal heart rate and rhythm. Pulses normal. Normal S1 and S2 Respiratory: No respiratory distress. Breath sounds normal. No Wheezing. No rales Abdomen: Soft and nontender. No rigidity. No distention. Skin: Skin warm and dry. Normal skin color. Normal skin turgor. Extremities: No lower extremity edema. No Lacerations. No Rash Neuro: Oriented X 3. No motor deficit. No sensory deficit. Moving all extremities. No slurred speech. CN 2 through 12 grossly intact Psych: calm, cooperative, normal affect Course Course Course Narrative: This is a rapid medical exam performed by Chasity Pop NP: Additional HPI, ROS, PE not included below will be deferred to primary provider. Patient is an 79y/o F presenting with complaint of body aches and cough since this am. Plan: viral panel Medications Administered Discontinued Medications Generic Name Dose Route Start Last Admin Trade Name Freq PRN Reason Stop Dose Admin Hydroxyzine HCl 25 mg 01/24/25 23:57 01/25/25 00:04 Hydroxyzine Hcl 25 Mg Tablet PO 01/24/25 23:58 25 mg ONCE ONE Administration Medical Decision Making Medical Decision Making [facility] Narrative: Patient receiving a dose of p.o. hydroxyzine. My interpretation of labs: Negative for COVID, influenza, RSV, strep test negative Differential Diagnosis Differential Diagnoses: The differential diagnosis associated with the presentation includes (Viral syndrome versus strep versus anxiety) Lab Data [facility] Lab Attestation statement: I reviewed the patient's lab results. Labs: Lab Results 01/24/25 01/25/25 Range/Units 20:54 00:06 Influenza Type A (PCR) NEGATIVE (Negative) Influenza Type B (PCR) NEGATIVE (Negative) RSV RNA Qual (PCR) NEGATIVE (Negative) SARS-CoV-2 RNA (RT-PCR) NEGATIVE (Negative) S. pyogenes GrpA MYAH Negative (Negative) Discharge Plan Discharge Clinical Impression: Acute viral syndrome, Anxiety Patient Disposition: Home, Self-Care Instructions: Viral Syndrome (ED), Anxiety (ED) Additional Instructions: Please follow-up with your primary care physician tomorrow. If you have any worsening or new symptoms, please return to the emergency room or call 911 Prescriptions: No Action metoprolol succinate 50 mg tablet extended release 24 hr 50 mg PO DAILY Qty: 90 2RF valsartan 160 mg tablet 160 mg PO DAILY Qty: 90 1RF mirtazapine 45 mg Tablet 45 mg PO BEDTIME omeprazole 20 mg Tablet,Delayed Release (Dr/Ec) 20 mg PO DAILY@0630 fluticasone propionate [Flonase Allergy Relief] 50 mcg/actuation spray,suspension 2 spray intranasal DAILY Qty: 16 0RF Rx Instructions: administer into each nostril hydroxyzine HCl 25 mg tablet 25 mg PO TID PRN (Reason: anxiety) Qty: 6 0RF hydroxyzine HCl 25 mg tablet 25 mg PO TID PRN (Reason: anxiety) Qty: 20 0RF miconazole nitrate 2 % cream 1 appl topical BID Qty: 28 0RF trazodone 50 mg tablet 50 mg PO BEDTIME ferrous sulfate [FeroSul] 325 mg (65 mg iron) tablet 325 mg PO DAILY diphenhydramine HCl [Lou-Dryl] 25 mg tablet 25 mg PO BEDTIME PRN (Reason: itch) bisacodyl 5 mg tablet,delayed release (DR/EC) 5 mg PO DAILY PRN (Reason: constipation) rosuvastatin 20 mg tablet 20 mg PO BEDTIME aspirin 81 mg tablet,delayed release (DR/EC) 81 mg PO QAM multivitamin Tablet 1 tab PO QAM melatonin 10 mg tablet extended release 10 mg PO BEDTIME PRN (Reason: Insomnia) cholecalciferol (vitamin D3) 25 mcg (1,000 unit) tablet 25 mcg PO DAILY ondansetron 4 mg tablet,disintegrating 4 mg PO Q6H PRN (Reason: nausea and vomiting) Qty: 10 0RF acetaminophen 500 mg tablet 500 mg PO Q8H PRN (Reason: pain) zolpidem 5 mg tablet 5 mg PO BEDTIME PRN (Reason: Insomnia) ipratropium bromide 21 mcg (0.03 %) spray,non-aerosol 2 spray intranasal BID clonazepam 0.5 mg Tablet 0.5 mg PO TID Qty: 180 0RF gabapentin 100 mg Capsule 100 mg PO TID Qty: 180 0RF nitrofurantoin monohyd/m-cryst [Macrobid] 100 mg capsule 100 mg PO Q12H 3 Days Qty: 6 0RF Rx Instructions: must administer with a meal/food miconazole nitrate [Monistat 7] 2 % cream 1 appful vaginal BEDTIME 7 Days Qty: 45 0RF amlodipine 10 mg tablet 10 mg PO DAILY meclizine 25 mg tablet 25 mg PO DAILY PRN Print Language: Italian
[2025-01-24 21:37] LABS: Influenza A PCR NEGATIVE (Negative); Influenza B PCR NEGATIVE (Negative); Resp Syncy Virus RNA Qual PCR NEGATIVE (Negative); SARS COV2 PCR INHOUSE NEGATIVE (Negative)
[2025-01-25] MEDS: hydrOXYzine HCL 25 MG TABLET PO (00:04)
--- NOTE | 2025-01-25 00:08 | PC.NURSE ---
pt medicated per mar.
--- NOTE | 2025-01-25 00:26 | PC.NURSE ---
pt medication given, strep swab collected and sent.
[2025-01-25 00:27] VITALS: BP 146/74; PULSE 73; RESP 16; TEMP 37.1; O2SAT 99
[2025-01-25 00:45] LABS: IDNOW Serial# 08D9AD1C; Strep A Nucleic Acid Negative (Negative)
[2025-01-25 01:32] VITALS: O2SAT 98
--- NOTE | 2025-01-25 01:34 | PC.NURSE ---
Reviewed discharge instructions with pt. pt verbalized understanding, no sign of distress, pt has a steady gait upon discharge.
[2025-01-25 01:39] VITALS: BP 150/70; PULSE 86; RESP 20; TEMP 36.4; O2SAT 98
== END 2025-01-25 01:40 | disposition home or self-care (01) ==
PROVIDERS: Registered Nurse Emergency; Emergency Provider Emergency Medicine
DX: B34.9 Viral infection, unspecified (principal); R09.81 Nasal congestion; F41.9 Anxiety disorder, unspecified; Z03.818 Encounter for observation for suspected exposure to other biological agents ruled out; Z79.899 Other long term (current) drug therapy
CPT/HCPCS: 0241U; 87651; 99283; 99284

== ENCOUNTER 2025-01-31 21:55 | Emergency (ER) | payer OTHER, SELFPAY ==
--- NOTE | 2025-01-31 | ECG_ITS ---
Test Reason : PALPATATIONS Blood Pressure : */* mmHG Vent. Rate : 74 BPM Atrial Rate : 74 BPM P-R Int : 184 ms QRS Dur : 100 ms QT Int : 384 ms P-R-T Axes : * 219 185 degrees QTcB Int : 426 ms Normal sinus rhythm with sinus arrhythmia Right superior axis deviation T wave abnormality, consider inferior ischemia Abnormal ECG When compared with ECG of 14-Nov-2024 17:49, QRS axis Shifted left T wave inversion now evident in Lateral leads Referred By: Generic ED Physician Electronically Signed By: KATRINA PARSONS MD
[2025-01-31 22:15] VITALS: BP 136/70; BP 174/70; PULSE 85; PULSE 90; RESP 18; TEMP 37.2; O2SAT 96; BMI 32.3
[2025-01-31 22:58] LABS: Hematocrit 35.3 % (37.0-47.0); Hemoglobin 11.6 g/dl (12.0-16.0); Mean Corpuscular HGB Conc 32.9 g/dl (31.0-35.0); Mean Corpuscular Volume 85.3 fL (80.0-98.0); Mean Platelet Volume 8.1 fL (9.4-12.3); Platelet Count 281 X10*3/uL (160-400); Red Blood Count 4.14 X10*6/uL (4.20-5.50); Red Cell Distribution Width 14.1 % (11.0-16.0); White Blood Count 6.1 X10*3/uL (4.8-10.8)
[2025-01-31 23:11] LABS: Alanine Aminotransferase 24 U/L (0-31); Albumin Level 4.3 g/dL (3.5-5.0); Alkaline Phosphatase 70 U/L (39-117); Anion Gap 14 (12-20); Aspartate Amino Transferase 31 U/L (5-31); Bilirubin Total 0.4 mg/dL (0.0-1.0); Blood Urea Nitrogen 26 mg/dL (9-16); Calcium 9.3 mg/dL (8.4-10.2); Carbon Dioxide 27 mmol/L (22-29); Chloride 100 mmol/L (96-108); Creatinine Clr Calc Pharmacy 40.4; Estimated Glomerular Filt Rate 49; Glucose Random 123 mg/dL (60-115); Potassium 5.1 mmol/L (3.3-5.1); Sodium 136 mmol/L (135-145)
--- NOTE | 2025-02-01 01:42 | ED.EAR ---
HPI - Ear Problem General Chief complaint: Dizziness Stated complaint: anxiety Time Seen by Provider: 02/01/25 01:19 Source: patient, EMS and old records reviewed Mode of arrival: EMS Limitations: no limitations History of Present Illness ED Provider: EMILIA DUMONT Narrative: 79 yo female with PMH of HTN, anxiety, hyponatremia, SVT, benzo misuse who comes in with c/o anxiety asking for a few pills and L ear pain that is ringing for several years, no trauma, no URI symptoms and no fevers. She states she is anxious but these symptoms are not new. MD Complaint: ear pain Location: left ear Duration: constant Severity: mild Relieving factors: nothing Exacerbating factors: other Discharge from ear: no Associated symptoms ear: decreased hearing Treatment prior to arrival: none Related Data Home Medications ?Medication ?Instructions ?Recorded ?Confirmed mirtazapine 45 mg tablet 45 mg PO BEDTIME 08/09/20 09/29/24 omeprazole 20 mg tablet,delayed 20 mg PO DAILY@0630 08/09/20 09/29/24 release aspirin 81 mg tablet,delayed 81 mg PO QAM 01/28/24 09/29/24 release bisacodyl 5 mg tablet,delayed 5 mg PO DAILY PRN constipation 01/28/24 09/29/24 release diphenhydramine HCl 25 mg tablet 25 mg PO BEDTIME PRN itch 01/28/24 09/29/24 (Lou-Dryl) ferrous sulfate 325 mg (65 mg 325 mg PO DAILY 01/28/24 09/29/24 iron) tablet (FeroSul) melatonin 10 mg tablet,extended 10 mg PO BEDTIME PRN Insomnia 01/28/24 09/29/24 release multivitamin 1 tab PO QAM 01/28/24 09/29/24 rosuvastatin 20 mg tablet 20 mg PO BEDTIME 01/28/24 09/29/24 trazodone 50 mg tablet 50 mg PO BEDTIME 01/28/24 09/29/24 amlodipine 10 mg tablet 10 mg PO DAILY 02/09/24 09/29/24 acetaminophen 500 mg tablet 500 mg PO Q8H PRN pain 08/09/24 09/29/24 ipratropium bromide 21 mcg (0.03 2 spray intranasal BID 08/09/24 09/29/24 %) nasal spray zolpidem 5 mg tablet 5 mg PO BEDTIME PRN Insomnia 08/09/24 09/29/24 cholecalciferol (vitamin D3) 25 25 mcg PO DAILY 08/20/24 09/29/24 mcg (1,000 unit) tablet meclizine 25 mg tablet 25 mg PO DAILY PRN 09/29/24 09/29/24 Previous Rx's ?Medication ?Instructions ?Recorded metoprolol succinate 50 mg 50 mg PO DAILY #90 tabs 09/28/20 tablet,extended release 24 hr fluticasone propionate 50 2 spray intranasal DAILY #16 grams 09/16/23 mcg/actuation nasal spray,suspension (Flonase Allergy Relief) ondansetron 4 mg disintegrating 4 mg PO Q6H PRN nausea and 04/28/24 tablet vomiting #10 tabs hydroxyzine HCl 25 mg tablet 25 mg PO TID PRN anxiety #6 tabs 08/07/24 clonazepam 0.5 mg tablet 0.5 mg PO TID #180 tabs 08/10/24 gabapentin 100 mg capsule 100 mg PO TID #180 caps 08/10/24 hydroxyzine HCl 25 mg tablet 25 mg PO TID PRN anxiety #20 tabs 09/09/24 miconazole nitrate 2 % vaginal 1 appful vaginal BEDTIME 7 days 10/09/24 cream (Monistat 7) #45 grams nitrofurantoin 100 mg PO Q12H 3 days #6 caps 10/09/24 monohydrate/macrocrystals 100 mg capsule (Macrobid) miconazole nitrate 2 % topical 1 appl topical BID #28 grams 01/01/25 cream valsartan 160 mg tablet 160 mg PO DAILY #90 tabs 01/20/25 ofloxacin 0.3 % ear drops 10 drp otic (ears) DAILY 7 days #5 02/01/25 mL Allergies Allergy/AdvReac Type Severity Reaction Status Date / Time penicillin G [Penicillin G] Allergy Severe ITCHY/RASH Verified 01/31/25 22:17 Sulfa (Sulfonamide Allergy Severe ITCHY,RASH, Verified 01/31/25 22:17 Antibiotics) rash [Sulfa (Sulfonamides)] trimethoprim [From Bactrim] Allergy Severe HIVES Verified 01/31/25 22:17 Penicillins Allergy Intermediate Hives Verified 01/31/25 22:17 sulfamethoxazole Allergy Mild Hives Verified 01/31/25 22:17 [From Bactrim] Review of Systems Review of Systems: Constitutional : No Fever, No Chills ENT/Mouth : pos Ear Pain, No Nasal Congestion, No sore throat Eyes: No Eye Pain, No Swelling, No Redness Cardiovascular : No Chest Pain, No SOB Respiratory : No Cough, No Sputum, No Dyspnea Gastrointestinal : No Nausea, No Vomiting, No Diarrhea, No Hematochezia, No Melena Genitourinary : No Dysuria, No Urinary Frequency, No Hematuria Musculoskeletal : No Myalgias Skin : No Skin Lesions, No rash Neuro : No Weakness, No Numbness, No Paresthesias, No Dizziness, No Headache Psych : positive Anxiety, no Depression, no SI/HI All other systems reviewed and are negative [facility]LY [facility], [facility] Past Medical History Attestation statement: The following information was validated with the patient. 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 Oriented X3. No acute distress. Eyes: Pupils equal, round and reactive to light. ENT: Pharynx normal. L ear mild erythema swelling in canal TM normal Neck: Normal inspection. Neck supple. CVS: Normal heart rate and rhythm. Pulses normal. Respiratory: No respiratory distress. Breath sounds normal. Abdomen: Soft and nontender. Skin: Skin warm and dry. Normal skin color. Normal skin turgor. Extremities: No lower extremity edema. No calf ttp Neuro: Oriented X 3. No motor deficit. No sensory deficit. CN2-12 intact Medical Decision Making Medical Decision Making [facility] Narrative: 79 yo female with PMH of HTN, anxiety, hyponatremia, SVT, benzo misuse here with c/o ear pain that is chronic on exam no AOM but some canal swelling and erythema also c/o anxiety asking for medications at this time will obtain labs, EKG, start on ofloxacin drops and defer any anxiety medications. She can follow up with PCP Differential Diagnosis Differential Diagnoses: The differential diagnosis associated with the presentation includes anxiety, AOM, otitis externa Admission/Observation Consideration of admission/observation: Escalation of care including admission/observation considered negative work up stable for DC Lab Data [facility] Lab Attestation statement: I reviewed the patient's lab results. 01/31/25 22:45 01/31/25 22:45 Labs: Lab Results 01/31/25 Range/Units 22:45 WBC 6.1 (4.8-10.8) X10*3/uL RBC 4.14 L (4.20-5.50) X10*6/uL Hgb 11.6 L (12.0-16.0) g/dl Hct 35.3 L (37.0-47.0) % MCV 85.3 (80.0-98.0) fL MCH 28.0 (27.0-33.0) pg MCHC 32.9 (31.0-35.0) g/dl RDW 14.1 (11.0-16.0) % Plt Count 281 (160-400) X10*3/uL MPV 8.1 L (9.4-12.3) fL Absolute Nucleated RBC 0.000 (0.0-0.012) X10*3/uL Nucleated RBC % (auto) 0.0 (0.0-0.2) /100WBC Sodium 136 (135-145) mmol/L Potassium 5.1 (3.3-5.1) mmol/L Chloride 100 (96-108) mmol/L Carbon Dioxide 27 (22-29) mmol/L Anion Gap 14 (12-20) BUN 26 H (9-16) mg/dL Creatinine 1.07 (0.5-1.4) mg/dL Estim Creat Clear Calc 40.4 Estimated GFR 49 Random Glucose 123 H (60-115) mg/dL Calcium 9.3 (8.4-10.2) mg/dL Magnesium 2.0 (1.6-2.6) mg/dL Total Bilirubin 0.4 (0.0-1.0) mg/dL AST 31 (5-31) U/L ALT 24 (0-31) U/L Alkaline Phosphatase 70 (39-117) U/L Total Protein 8.0 (6.5-8.0) g/dL Albumin 4.3 (3.5-5.0) g/dL Independent Interpretation I performed an independent interpretation of an: EKG Interpretation: Rate: 77 Rhythm: NSR [place]: left, LVH Normal P waves. Normal MALIK. Normal QRS complex. ST T wave : normal no DOUGLAS qTC: 427 prior studies: no acute ischemia The study has been interpreted contemporaneously by me. . 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 return for any worsening symptoms or concerns Prescriptions: New ofloxacin 0.3 % drops 10 drp otic (ears) DAILY 7 Days Qty: 5 0RF No Action metoprolol succinate 50 mg tablet extended release 24 hr 50 mg PO DAILY Qty: 90 2RF valsartan 160 mg tablet 160 mg PO DAILY Qty: 90 1RF mirtazapine 45 mg Tablet 45 mg PO BEDTIME omeprazole 20 mg Tablet,Delayed Release (Dr/Ec) 20 mg PO DAILY@0630 fluticasone propionate [Flonase Allergy Relief] 50 mcg/actuation spray,suspension 2 spray intranasal DAILY Qty: 16 0RF Rx Instructions: administer into each nostril hydroxyzine HCl 25 mg tablet 25 mg PO TID PRN (Reason: anxiety) Qty: 6 0RF hydroxyzine HCl 25 mg tablet 25 mg PO TID PRN (Reason: anxiety) Qty: 20 0RF miconazole nitrate 2 % cream 1 appl topical BID Qty: 28 0RF trazodone 50 mg tablet 50 mg PO BEDTIME ferrous sulfate [FeroSul] 325 mg (65 mg iron) tablet 325 mg PO DAILY diphenhydramine HCl [Lou-Dryl] 25 mg tablet 25 mg PO BEDTIME PRN (Reason: itch) bisacodyl 5 mg tablet,delayed release (DR/EC) 5 mg PO DAILY PRN (Reason: constipation) rosuvastatin 20 mg tablet 20 mg PO BEDTIME aspirin 81 mg tablet,delayed release (DR/EC) 81 mg PO QAM multivitamin Tablet 1 tab PO QAM melatonin 10 mg tablet extended release 10 mg PO BEDTIME PRN (Reason: Insomnia) cholecalciferol (vitamin D3) 25 mcg (1,000 unit) tablet 25 mcg PO DAILY ondansetron 4 mg tablet,disintegrating 4 mg PO Q6H PRN (Reason: nausea and vomiting) Qty: 10 0RF acetaminophen 500 mg tablet 500 mg PO Q8H PRN (Reason: pain) zolpidem 5 mg tablet 5 mg PO BEDTIME PRN (Reason: Insomnia) ipratropium bromide 21 mcg (0.03 %) spray,non-aerosol 2 spray intranasal BID clonazepam 0.5 mg Tablet 0.5 mg PO TID Qty: 180 0RF gabapentin 100 mg Capsule 100 mg PO TID Qty: 180 0RF nitrofurantoin monohyd/m-cryst [Macrobid] 100 mg capsule 100 mg PO Q12H 3 Days Qty: 6 0RF Rx Instructions: must administer with a meal/food miconazole nitrate [Monistat 7] 2 % cream 1 appful vaginal BEDTIME 7 Days Qty: 45 0RF amlodipine 10 mg tablet 10 mg PO DAILY meclizine 25 mg tablet 25 mg PO DAILY PRN Print Language: German
[2025-02-01 02:04] VITALS: BP 136/70; PULSE 85; RESP 18; TEMP 37.2; O2SAT 96
== END 2025-02-01 02:10 | disposition home or self-care (01) ==
PROVIDERS: Emergency Provider Emergency Medicine
DX: H60.312 Diffuse otitis externa, left ear (principal); F41.0 Panic disorder [episodic paroxysmal anxiety]; R00.2 Palpitations; I10 Essential (primary) hypertension; H92.02 Otalgia, left ear; Z79.899 Other long term (current) drug therapy
CPT/HCPCS: 36415; 80053; 83735; 85027; 93005; 99283

== ENCOUNTER → 2025-01-31 22:37 | Outpatient (BNV) | payer OTHER, SELFPAY | PROVIDERS: Emergency Provider Emergency Medicine; Visit Provider Internal Medicine Cardiovascular Disease | DX: I49.9 Cardiac arrhythmia, unspecified (principal) | CPT/HCPCS: 93010 ==

== ENCOUNTER 2025-02-06 04:31 | Emergency (ER) | payer OTHER, SELFPAY ==
[2025-02-06 04:48] VITALS: BP 124/73; BP 141/68; PULSE 114; PULSE 87; RESP 18; TEMP 37.5; O2SAT 97; O2SAT 98; BMI 28.0
--- NOTE | 2025-02-06 05:05 | ED_ITS ---
HPI - General Adult General Chief complaint: General Medical Stated complaint: SORE THROAT Time Seen by Provider: 02/06/25 05:05 History of Present Illness HPI narrative: 79 yo female with PMH of HTN, anxiety, hyponatremia, SVT, benzo misuse who presents emergency department for evaluation of sore throat and stuffy nose. She states that she got ill yesterday in her symptoms got worse this morning. She states she was having difficulty swallowing in his painful to swallow. She complains of rhinorrhea but denies fever, chills, cough. She denied nausea, vomiting or diarrhea. Patient was seen here frequently for anxiety. Related Data Home Medications ?Medication ?Instructions ?Recorded ?Confirmed mirtazapine 45 mg tablet 45 mg PO BEDTIME 08/09/20 09/29/24 omeprazole 20 mg tablet,delayed 20 mg PO DAILY@0630 08/09/20 09/29/24 release aspirin 81 mg tablet,delayed 81 mg PO QAM 01/28/24 09/29/24 release bisacodyl 5 mg tablet,delayed 5 mg PO DAILY PRN constipation 01/28/24 09/29/24 release diphenhydramine HCl 25 mg tablet 25 mg PO BEDTIME PRN itch 01/28/24 09/29/24 (Lou-Dryl) ferrous sulfate 325 mg (65 mg 325 mg PO DAILY 01/28/24 09/29/24 iron) tablet (FeroSul) melatonin 10 mg tablet,extended 10 mg PO BEDTIME PRN Insomnia 01/28/24 09/29/24 release multivitamin 1 tab PO QAM 01/28/24 09/29/24 rosuvastatin 20 mg tablet 20 mg PO BEDTIME 01/28/24 09/29/24 trazodone 50 mg tablet 50 mg PO BEDTIME 01/28/24 09/29/24 amlodipine 10 mg tablet 10 mg PO DAILY 02/09/24 09/29/24 acetaminophen 500 mg tablet 500 mg PO Q8H PRN pain 08/09/24 09/29/24 ipratropium bromide 21 mcg (0.03 2 spray intranasal BID 08/09/24 09/29/24 %) nasal spray zolpidem 5 mg tablet 5 mg PO BEDTIME PRN Insomnia 08/09/24 09/29/24 cholecalciferol (vitamin D3) 25 25 mcg PO DAILY 08/20/24 09/29/24 mcg (1,000 unit) tablet meclizine 25 mg tablet 25 mg PO DAILY PRN 09/29/24 09/29/24 Previous Rx's ?Medication ?Instructions ?Recorded metoprolol succinate 50 mg 50 mg PO DAILY #90 tabs 09/28/20 tablet,extended release 24 hr fluticasone propionate 50 2 spray intranasal DAILY #16 grams 09/16/23 mcg/actuation nasal spray,suspension (Flonase Allergy Relief) ondansetron 4 mg disintegrating 4 mg PO Q6H PRN nausea and 04/28/24 tablet vomiting #10 tabs hydroxyzine HCl 25 mg tablet 25 mg PO TID PRN anxiety #6 tabs 08/07/24 clonazepam 0.5 mg tablet 0.5 mg PO TID #180 tabs 08/10/24 gabapentin 100 mg capsule 100 mg PO TID #180 caps 08/10/24 hydroxyzine HCl 25 mg tablet 25 mg PO TID PRN anxiety #20 tabs 09/09/24 miconazole nitrate 2 % vaginal 1 appful vaginal BEDTIME 7 days 10/09/24 cream (Monistat 7) #45 grams nitrofurantoin 100 mg PO Q12H 3 days #6 caps 10/09/24 monohydrate/macrocrystals 100 mg capsule (Macrobid) miconazole nitrate 2 % topical 1 appl topical BID #28 grams 01/01/25 cream valsartan 160 mg tablet 160 mg PO DAILY #90 tabs 01/20/25 ofloxacin 0.3 % ear drops 10 drp otic (ears) DAILY 7 days #5 02/01/25 mL Allergies Allergy/AdvReac Type Severity Reaction Status Date / Time penicillin G [Penicillin G] Allergy Severe ITCHY/RASH Verified 02/06/25 04:50 Sulfa (Sulfonamide Allergy Severe ITCHY,RASH, Verified 02/06/25 04:50 Antibiotics) rash [Sulfa (Sulfonamides)] trimethoprim [From Bactrim] Allergy Severe HIVES Verified 02/06/25 04:50 Penicillins Allergy Intermediate Hives Verified 02/06/25 04:50 sulfamethoxazole Allergy Mild Hives Verified 02/06/25 04:50 [From Bactrim] Review of Systems Review of Systems: Yes all other systems are reviewed and are negative PMFSH Past Medical History 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 or 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) Unable to assess alcohol history related to: Unknown Alcohol intake: never Patient Tobacco Use Status: Never used Tobacco Advance Directives: Yes Advance Directives on File: Yes Advance Directives Date on File: 01/28/24 Do you have a plan to hurt others: No Plan service: No Physical Exam ED Vital Signs: Vital Signs - 24 hr 02/06/25 04:48 Temperature 99.5 F Pulse Rate 87 Respiratory Rate 18 Blood Pressure 141/68 H Pulse Oximetry 97 Oxygen Delivery Method Room Air BMI result Body Mass Index 28.0 Vital signs revealed an elevated blood pressure of 141/68 otherwise unremarkable Exam: General: Awake, alert in no distress Head: Normocephalic, atraumatic EENT: PERRL, Lids normal, sclera normal, conjunctiva normal, nose normal , ears normal, throat without erythema or exudates Neck: Supple, no adenopathy Lung: breath sounds symmetric, no wheezing, rales or rhonchi Chest: symmetric movement, nontender Heart: regular rate and rhythm, normal S1, S2 no murmurs or rubs Abdomen: soft, non-tender, nondistended, normal bowel sounds Back: no vertebral tenderness, no CVAT Extremities: no deformities, moves all extremities symmetrically Neuro: Awake, alert, oriented, normal speech, cranial nerves intact, moves all extremities symmetrically Psych: Pleasant, cooperative Medical Decision Making Medical Decision Making MDM Narrative: 79 yo female with PMH of HTN, anxiety, hyponatremia, SVT, benzo misuse who presents emergency department for evaluation of sore throat and stuffy nose x2 days. Physical examination was unremarkable. Differential diagnosis: ?Includes but is not limited to streptococcal pharyngitis, viral pharyngitis, COVID-19, influenza, RSV, viral syndrome, anxiety Course: 06:12 My interpretation patient's laboratory evaluation is as follows: COVID-19, RSV and influenza were negative. Rapid strep was negative. Patient's symptoms are most likely caused by a viral infection or secondary to her anxiety disorder. And did discuss this with her. The patient was advised to kidney take your medications as prescribed by your providers and to follow up with her PCP for further evaluation. Admission/Observation Consideration of admission/observation: Escalation of care including admission/observation considered (No) Lab Data MDM Lab Attestation statement: I reviewed the patient's lab results. Labs: Lab Results 02/06/25 Range/Units 04:57 Influenza Type A (PCR) NEGATIVE (Negative) Influenza Type B (PCR) NEGATIVE (Negative) RSV RNA Qual (PCR) NEGATIVE (Negative) SARS-CoV-2 RNA (RT-PCR) NEGATIVE (Negative) S. pyogenes GrpA MYAH Negative (Negative) Chronic Conditions Patient?s care impacted by: Other (Anxiety disorder) Discharge Plan Discharge Clinical Impression: Acute sore throat Patient Disposition: Home, Self-Care Additional Instructions: Your rapid strep throat test was negative. Your COVID-19, RSV and influenza tests were negative as well. Continue taking medications as prescribed by your providers. Follow-up with your doctor in 2 days. Please return to the emergency department if your symptoms get worse or if you develop any symptoms that are concerning to you. Prescriptions: No Action metoprolol succinate 50 mg tablet extended release 24 hr 50 mg PO DAILY Qty: 90 2RF valsartan 160 mg tablet 160 mg PO DAILY Qty: 90 1RF mirtazapine 45 mg Tablet 45 mg PO BEDTIME omeprazole 20 mg Tablet,Delayed Release (Dr/Ec) 20 mg PO DAILY@0630 fluticasone propionate [Flonase Allergy Relief] 50 mcg/actuation spray,suspension 2 spray intranasal DAILY Qty: 16 0RF Rx Instructions: administer into each nostril hydroxyzine HCl 25 mg tablet 25 mg PO TID PRN (Reason: anxiety) Qty: 6 0RF hydroxyzine HCl 25 mg tablet 25 mg PO TID PRN (Reason: anxiety) Qty: 20 0RF miconazole nitrate 2 % cream 1 appl topical BID Qty: 28 0RF trazodone 50 mg tablet 50 mg PO BEDTIME ferrous sulfate [FeroSul] 325 mg (65 mg iron) tablet 325 mg PO DAILY diphenhydramine HCl [Lou-Dryl] 25 mg tablet 25 mg PO BEDTIME PRN (Reason: itch) bisacodyl 5 mg tablet,delayed release (DR/EC) 5 mg PO DAILY PRN (Reason: constipation) rosuvastatin 20 mg tablet 20 mg PO BEDTIME aspirin 81 mg tablet,delayed release (DR/EC) 81 mg PO QAM multivitamin Tablet 1 tab PO QAM melatonin 10 mg tablet extended release 10 mg PO BEDTIME PRN (Reason: Insomnia) cholecalciferol (vitamin D3) 25 mcg (1,000 unit) tablet 25 mcg PO DAILY ondansetron 4 mg tablet,disintegrating 4 mg PO Q6H PRN (Reason: nausea and vomiting) Qty: 10 0RF acetaminophen 500 mg tablet 500 mg PO Q8H PRN (Reason: pain) zolpidem 5 mg tablet 5 mg PO BEDTIME PRN (Reason: Insomnia) ipratropium bromide 21 mcg (0.03 %) spray,non-aerosol 2 spray intranasal BID clonazepam 0.5 mg Tablet 0.5 mg PO TID Qty: 180 0RF gabapentin 100 mg Capsule 100 mg PO TID Qty: 180 0RF nitrofurantoin monohyd/m-cryst [Macrobid] 100 mg capsule 100 mg PO Q12H 3 Days Qty: 6 0RF Rx Instructions: must administer with a meal/food miconazole nitrate [Monistat 7] 2 % cream 1 appful vaginal BEDTIME 7 Days Qty: 45 0RF ofloxacin 0.3 % drops 10 drp otic (ears) DAILY 7 Days Qty: 5 0RF amlodipine 10 mg tablet 10 mg PO DAILY meclizine 25 mg tablet 25 mg PO DAILY PRN Print Language: Ukrainian
[2025-02-06 05:18] LABS: IDNOW Serial# 58CA691E; Strep A Nucleic Acid Negative (Negative)
[2025-02-06 05:41] LABS: Influenza A PCR NEGATIVE (Negative); Influenza B PCR NEGATIVE (Negative); Resp Syncy Virus RNA Qual PCR NEGATIVE (Negative); SARS COV2 PCR INHOUSE NEGATIVE (Negative)
[2025-02-06 06:22] VITALS: BP 131/71; PULSE 76; RESP 16; TEMP 36.9; O2SAT 96
[2025-02-06 06:27] VITALS: BP 131/71; PULSE 76; RESP 16; TEMP 36.9; O2SAT 96
== END 2025-02-06 06:28 | disposition home or self-care (01) ==
PROVIDERS: Emergency Provider Emergency Medicine Emergency Medical Services
DX: J02.9 Acute pharyngitis, unspecified (principal); R09.81 Nasal congestion; J34.89 Other specified disorders of nose and nasal sinuses; Z79.899 Other long term (current) drug therapy
CPT/HCPCS: 0241U; 87651

== ENCOUNTER 2025-02-06 20:55 | Emergency (ER) | payer OTHER, SELFPAY ==
--- NOTE | ~2025-02-06 | XR_ITS ---
CLINICAL HISTORY: pain 1 view abdomen Comparison: None Findings: No acute fractures. Degenerative changes in the hips and pelvis, with heterotopic ossification along the right hip. Large colonic stool burden. Nonobstructive bowel-gas pattern. IMPRESSION: Large colonic stool burden. This document has been electronically signed by: Jonathon Cortés MD on 02/07/2025 00:53:27
[2025-02-06 21:09] VITALS: BP 146/92; PULSE 110; O2SAT 98
[2025-02-06 22:10] VITALS: BP 113/70; PULSE 74; RESP 18; TEMP 36.9; O2SAT 96; BMI 27.9
[2025-02-07] LABS: Appearance Urine Hazy; Color Urine Yellow; Glucose Urine UA Negative (Negative); Leukocyte Esterase Urine Moderate (2+) (Negative); Nitrite Urine Negative (Negative); UMIC TRIGGER UACC YES; Urine Blood Trace (Negative); Urine Ketones Negative (Negative); Urine Protein Negative (Neg-Trace)
[2025-02-07 00:13] LABS: Bacteria Urine 2+ (None Seen); Hyaline Casts Urine 0-2 /LPF (0-2); RBC Urine 0-2 /HPF (0-2); UACC Culture Trigger YES
--- NOTE | 2025-02-07 00:28 | ED.FEMALEGU ---
HPI - Female Genitourinary General Chief complaint: Urogenital-Female Stated complaint: abd pain, low urine output Time Seen by Provider: 02/06/25 23:48 Source: patient Limitations: language barrier History of Present Illness ED Provider: Jeanne Shen PA-C HPI Narrative: 78 y/o F with hx of HTN, anxiety, hyponatremia, SVT, benzo misuse , who is well known to our emergency department, being a high utilizer of resources, having had 11 ED visits since November of this year, who was just seen in the ED earlier today for a different complaint, presents with multiple complaints. Patient states her vagina is irritated, she is having dysuria and that her abdomen hurts. Denies nausea vomiting, diarrhea. Denies constipation. She has had symptoms for 1 month. Related Data Home Medications ?Medication ?Instructions ?Recorded ?Confirmed mirtazapine 45 mg tablet 45 mg PO BEDTIME 08/09/20 09/29/24 omeprazole 20 mg tablet,delayed 20 mg PO DAILY@0630 08/09/20 09/29/24 release aspirin 81 mg tablet,delayed 81 mg PO QAM 01/28/24 09/29/24 release bisacodyl 5 mg tablet,delayed 5 mg PO DAILY PRN constipation 01/28/24 09/29/24 release diphenhydramine HCl 25 mg tablet 25 mg PO BEDTIME PRN itch 01/28/24 09/29/24 (Lou-Dryl) ferrous sulfate 325 mg (65 mg 325 mg PO DAILY 01/28/24 09/29/24 iron) tablet (FeroSul) melatonin 10 mg tablet,extended 10 mg PO BEDTIME PRN Insomnia 01/28/24 09/29/24 release multivitamin 1 tab PO QAM 01/28/24 09/29/24 rosuvastatin 20 mg tablet 20 mg PO BEDTIME 01/28/24 09/29/24 trazodone 50 mg tablet 50 mg PO BEDTIME 01/28/24 09/29/24 amlodipine 10 mg tablet 10 mg PO DAILY 02/09/24 09/29/24 acetaminophen 500 mg tablet 500 mg PO Q8H PRN pain 08/09/24 09/29/24 ipratropium bromide 21 mcg (0.03 2 spray intranasal BID 08/09/24 09/29/24 %) nasal spray zolpidem 5 mg tablet 5 mg PO BEDTIME PRN Insomnia 08/09/24 09/29/24 cholecalciferol (vitamin D3) 25 25 mcg PO DAILY 08/20/24 09/29/24 mcg (1,000 unit) tablet meclizine 25 mg tablet 25 mg PO DAILY PRN 09/29/24 09/29/24 Previous Rx's ?Medication ?Instructions ?Recorded metoprolol succinate 50 mg 50 mg PO DAILY #90 tabs 09/28/20 tablet,extended release 24 hr fluticasone propionate 50 2 spray intranasal DAILY #16 grams 09/16/23 mcg/actuation nasal spray,suspension (Flonase Allergy Relief) ondansetron 4 mg disintegrating 4 mg PO Q6H PRN nausea and 04/28/24 tablet vomiting #10 tabs hydroxyzine HCl 25 mg tablet 25 mg PO TID PRN anxiety #6 tabs 08/07/24 clonazepam 0.5 mg tablet 0.5 mg PO TID #180 tabs 08/10/24 gabapentin 100 mg capsule 100 mg PO TID #180 caps 08/10/24 hydroxyzine HCl 25 mg tablet 25 mg PO TID PRN anxiety #20 tabs 09/09/24 miconazole nitrate 2 % vaginal 1 appful vaginal BEDTIME 7 days 10/09/24 cream (Monistat 7) #45 grams nitrofurantoin 100 mg PO Q12H 3 days #6 caps 10/09/24 monohydrate/macrocrystals 100 mg capsule (Macrobid) miconazole nitrate 2 % topical 1 appl topical BID #28 grams 01/01/25 cream valsartan 160 mg tablet 160 mg PO DAILY #90 tabs 01/20/25 ofloxacin 0.3 % ear drops 10 drp otic (ears) DAILY 7 days #5 02/01/25 mL docusate sodium 100 mg capsule 200 mg (2 x 100 mg) PO BID #30 caps 02/07/25 (Col-Rite) polyethylene glycol 3350 17 17 g PO Q8H #238 grams 02/07/25 gram/dose oral powder (ClearLax) white petrolatum 41 % topical 1 appl topical BID PRN irritated 02/07/25 ointment (Advanced Healing skin #50 grams (Petrolatum)) Allergies Allergy/AdvReac Type Severity Reaction Status Date / Time penicillin G [Penicillin G] Allergy Severe ITCHY/RASH Verified 02/06/25 22:19 Sulfa (Sulfonamide Allergy Severe ITCHY,RASH, Verified 02/06/25 22:19 Antibiotics) rash [Sulfa (Sulfonamides)] trimethoprim [From Bactrim] Allergy Severe HIVES Verified 02/06/25 22:19 Penicillins Allergy Intermediate Hives Verified 02/06/25 22:19 sulfamethoxazole Allergy Mild Hives Verified 02/06/25 22:19 [From Bactrim] Review of Systems Review of Systems: Yes all other systems are reviewed and are negative Constitutional: Constitutional: Denies fatigue and Denies fever(s) Cardiovascular: Cardiovascular: Denies chest pain and Denies dyspnea Respiratory: Respiratory: Denies cough and Denies dyspnea Gastrointestinal: Gastrointestinal: Reports abdominal pain, Denies constipation, Denies diarrhea, Denies nausea and Denies vomiting Genitourinary: Genitourinary: Reports dysuria, Denies vaginal discharge and Reports vaginal pruritus Endocrine: Endocrine: Denies fatigue PMFSH Past Medical History Attestation statement: The following information was validated with the patient. 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) Unable to assess alcohol history related to: Unknown Alcohol intake: never Patient Tobacco Use Status: Never used Tobacco Advance Directives: Yes Advance Directives on File: Yes Advance Directives Date on File: 01/28/24 service: No Physical Exam Vital Signs: Vital Signs: Last Vital Signs Temp 98.5 F 02/06/25 22:10 Pulse 74 02/06/25 22:10 Resp 18 02/06/25 22:10 BP 113/70 02/06/25 22:10 Pulse Ox 96 02/06/25 22:10 O2 Del Method Room Air 02/06/25 22:10 BMI result Body Mass Index 27.9 Const: Other: Alert well-appearing Orientation/consciousness: patient oriented x3 Resp: Effort & Inspection: normal respiratory effort Cardio: Other: Normal peripheral perfusion GI: Other: Abdomen is soft, nontender nondistended, obese no guarding no palpable pain : Other: The vulva, labia and perineum appear chafed and irritated there is no vaginal discharge to suggest a yeast infection Skin: Other: Warm dry no rash Neuro: General: patient oriented x3, gait normal, no focal motor deficits and CN's II-XI intact bilaterally Psych: Other: Somewhat uncooperative Medical Decision Making Medical Decision Making MDM Narrative: 78 y/o F with hx of HTN, anxiety, hyponatremia, SVT, benzo misuse , who is well known to our emergency department, being a high utilizer of resources, having had 11 ED visits since November of this year, who was just seen in the ED earlier today for a different complaint, presents with multiple complaints. Patient states her vagina is irritated, she is having dysuria and that her abdomen hurts. Denies nausea vomiting, diarrhea. Denies constipation. She has had symptoms for 1 month. Problem: Anxiety History: Per patient I have considered the following differential diagnoses: Constipation, UTI, vaginal candidal infection, other vaginitis Plan: Patient has had symptoms for a month, she is likely constipated, she has an unremarkable exam, we will obtain a KUB. Urine sent to assess for UTI. I performed a pelvic exam, her skin is chafed, there was no evidence of any form of vaginitis. We will send with Aquaphor. I have independently reviewed the following tests: Labs: Urine not infected appears contaminated, KUB:Findings: No acute fractures. Degenerative changes in the hips and pelvis, with heterotopic ossification along the right hip. Large colonic stool burden. Nonobstructive bowel-gas pattern. IMPRESSION: Large colonic stool burden. Lab Data Labs: Lab Results 02/06/25 Range/Units 23:50 Urine Color Yellow Urine Appearance Hazy Urine pH 6.0 (5.0-9.0) Ur Specific [place] 1.020 (1.005-1.025) Urine Protein Negative (Neg-Trace) mg/dL Urine Glucose (UA) Negative (Negative) mg/dL Urine Ketones Negative (Negative) mg/dL Urine Blood Trace (Negative) Urine Nitrite Negative (Negative) Ur Leukocyte Esterase Moderate (2+) H (Negative) Urine RBC 0-2 (0-2) /HPF Urine WBC 11-20 H (0-5) /HPF Ur Squamous Epith Cells 6-10 (0-2) /HPF Urine Bacteria 2+ (None Seen) Hyaline Casts 0-2 (0-2) /LPF Discharge Plan Discharge Clinical Impression: Constipation, Vaginal irritation Patient Disposition: Home, Self-Care Instructions: Constipation (ED) Additional Instructions: The skin of your external genitalia is raw, like a diaper rash. Use the Aquaphor as directed. This is a moisture barrier to protect the skin. You were experiencing burning when the urine comes in contact with your vaginal tissues. You do not have a urinary tract infection. The x-ray shows that you are constipated. See home care instructions. Take the Colace as directed, take the MiraLax as directed. You need to follow up with your primary care provider. You have already been prescribed hydroxyzine, I am not giving you another prescription. You can talk about this with your own primary care provider. Prescriptions: New docusate sodium [Col-Rite] 100 mg capsule 200 mg PO BID Qty: 30 0RF polyethylene glycol 3350 [ClearLax] 17 gram/dose powder 17 g PO Q8H Qty: 238 0RF Advanced Healing (Petrolatum) 41 % ointment 1 appl topical BID PRN (Reason: irritated skin) Qty: 50 0RF No Action metoprolol succinate 50 mg tablet extended release 24 hr 50 mg PO DAILY Qty: 90 2RF valsartan 160 mg tablet 160 mg PO DAILY Qty: 90 1RF mirtazapine 45 mg Tablet 45 mg PO BEDTIME omeprazole 20 mg Tablet,Delayed Release (Dr/Ec) 20 mg PO DAILY@0630 fluticasone propionate [Flonase Allergy Relief] 50 mcg/actuation spray,suspension 2 spray intranasal DAILY Qty: 16 0RF Rx Instructions: administer into each nostril hydroxyzine HCl 25 mg tablet 25 mg PO TID PRN (Reason: anxiety) Qty: 6 0RF hydroxyzine HCl 25 mg tablet 25 mg PO TID PRN (Reason: anxiety) Qty: 20 0RF miconazole nitrate 2 % cream 1 appl topical BID Qty: 28 0RF trazodone 50 mg tablet 50 mg PO BEDTIME ferrous sulfate [FeroSul] 325 mg (65 mg iron) tablet 325 mg PO DAILY diphenhydramine HCl [Lou-Dryl] 25 mg tablet 25 mg PO BEDTIME PRN (Reason: itch) bisacodyl 5 mg tablet,delayed release (DR/EC) 5 mg PO DAILY PRN (Reason: constipation) rosuvastatin 20 mg tablet 20 mg PO BEDTIME aspirin 81 mg tablet,delayed release (DR/EC) 81 mg PO QAM multivitamin Tablet 1 tab PO QAM melatonin 10 mg tablet extended release 10 mg PO BEDTIME PRN (Reason: Insomnia) cholecalciferol (vitamin D3) 25 mcg (1,000 unit) tablet 25 mcg PO DAILY ondansetron 4 mg tablet,disintegrating 4 mg PO Q6H PRN (Reason: nausea and vomiting) Qty: 10 0RF acetaminophen 500 mg tablet 500 mg PO Q8H PRN (Reason: pain) zolpidem 5 mg tablet 5 mg PO BEDTIME PRN (Reason: Insomnia) ipratropium bromide 21 mcg (0.03 %) spray,non-aerosol 2 spray intranasal BID clonazepam 0.5 mg Tablet 0.5 mg PO TID Qty: 180 0RF gabapentin 100 mg Capsule 100 mg PO TID Qty: 180 0RF nitrofurantoin monohyd/m-cryst [Macrobid] 100 mg capsule 100 mg PO Q12H 3 Days Qty: 6 0RF Rx Instructions: must administer with a meal/food miconazole nitrate [Monistat 7] 2 % cream 1 appful vaginal BEDTIME 7 Days Qty: 45 0RF ofloxacin 0.3 % drops 10 drp otic (ears) DAILY 7 Days Qty: 5 0RF amlodipine 10 mg tablet 10 mg PO DAILY meclizine 25 mg tablet 25 mg PO DAILY PRN Print Language: Romanian
[2025-02-07 01:42] VITALS: BP 141/77; PULSE 77; RESP 15; TEMP 36.9; O2SAT 98
[2025-02-07 01:44] VITALS: BP 141/77; PULSE 77; RESP 15; TEMP 36.9; O2SAT 98
== END 2025-02-07 01:45 | disposition home or self-care (01) ==
PROVIDERS: Emergency Provider Emergency Medicine
DX: K59.00 Constipation, unspecified (principal); N89.8 Other specified noninflammatory disorders of vagina; R30.0 Dysuria; R10.9 Unspecified abdominal pain; Z03.818 Encounter for observation for suspected exposure to other biological agents ruled out
CPT/HCPCS: 0241U; 74018; 81001; 81003; 87086; 87651; 99283; 99284

== ENCOUNTER → 2025-02-07 00:34 | Outpatient (BNV) | payer OTHER, SELFPAY | PROVIDERS: Emergency Provider Emergency Medicine; Visit Provider Radiology Diagnostic Radiology | DX: R19.5 Other fecal abnormalities (principal) | CPT/HCPCS: 74018 ==

== ENCOUNTER 2025-02-13 23:36 | Emergency (ER) | payer OTHER, SELFPAY ==
--- NOTE | ~2025-02-13 | XR_ITS ---
CLINICAL HISTORY: sob 1 view chest x-ray Comparison: Chest x-ray from 11/10/2024 Findings: Low lung volumes with mild bibasilar atelectasis and/or pneumonitis. Mild emphysematous changes are redemonstrated. No pneumothorax or pleural effusion. Imaged mediastinum is unchanged. Degenerative changes include imaged shoulders and AC joints. IMPRESSION: Mild bibasilar atelectasis. This document has been electronically signed by: Kenyon Hatch MD on 02/14/2025 02:56:46
[2025-02-13 23:45] VITALS: BP 157/74; PULSE 82; RESP 16; TEMP 37.6; O2SAT 96; BMI 28.1
--- NOTE | 2025-02-14 00:03 | ED_ITS ---
HPI - General Adult General Chief complaint: General Medical Stated complaint: cold symptoms Time Seen by Provider: 02/13/25 23:58 Source: patient Mode of arrival: ambulatory Limitations: no limitations History of Present Illness ED Provider: HPI narrative: Patient's history of anxiety been here multiple times for multiple complaints complaining of cold sent for several weeks now getting worse for last few days patient has had multiple COVID flu strep test negative last one was on 02/06 no fever no chills Related Data Home Medications ?Medication ?Instructions ?Recorded ?Confirmed mirtazapine 45 mg tablet 45 mg PO BEDTIME 08/09/20 09/29/24 omeprazole 20 mg tablet,delayed 20 mg PO DAILY@0630 08/09/20 09/29/24 release aspirin 81 mg tablet,delayed 81 mg PO QAM 01/28/24 09/29/24 release bisacodyl 5 mg tablet,delayed 5 mg PO DAILY PRN constipation 01/28/24 09/29/24 release diphenhydramine HCl 25 mg tablet 25 mg PO BEDTIME PRN itch 01/28/24 09/29/24 (Lou-Dryl) ferrous sulfate 325 mg (65 mg 325 mg PO DAILY 01/28/24 09/29/24 iron) tablet (FeroSul) melatonin 10 mg tablet,extended 10 mg PO BEDTIME PRN Insomnia 01/28/24 09/29/24 release multivitamin 1 tab PO QAM 01/28/24 09/29/24 rosuvastatin 20 mg tablet 20 mg PO BEDTIME 01/28/24 09/29/24 trazodone 50 mg tablet 50 mg PO BEDTIME 01/28/24 09/29/24 amlodipine 10 mg tablet 10 mg PO DAILY 02/09/24 09/29/24 acetaminophen 500 mg tablet 500 mg PO Q8H PRN pain 08/09/24 09/29/24 ipratropium bromide 21 mcg (0.03 2 spray intranasal BID 08/09/24 09/29/24 %) nasal spray zolpidem 5 mg tablet 5 mg PO BEDTIME PRN Insomnia 08/09/24 09/29/24 cholecalciferol (vitamin D3) 25 25 mcg PO DAILY 08/20/24 09/29/24 mcg (1,000 unit) tablet meclizine 25 mg tablet 25 mg PO DAILY PRN 09/29/24 09/29/24 Previous Rx's ?Medication ?Instructions ?Recorded metoprolol succinate 50 mg 50 mg PO DAILY #90 tabs 09/28/20 tablet,extended release 24 hr fluticasone propionate 50 2 spray intranasal DAILY #16 grams 09/16/23 mcg/actuation nasal spray,suspension (Flonase Allergy Relief) ondansetron 4 mg disintegrating 4 mg PO Q6H PRN nausea and 04/28/24 tablet vomiting #10 tabs hydroxyzine HCl 25 mg tablet 25 mg PO TID PRN anxiety #6 tabs 08/07/24 clonazepam 0.5 mg tablet 0.5 mg PO TID #180 tabs 08/10/24 gabapentin 100 mg capsule 100 mg PO TID #180 caps 08/10/24 hydroxyzine HCl 25 mg tablet 25 mg PO TID PRN anxiety #20 tabs 09/09/24 miconazole nitrate 2 % vaginal 1 appful vaginal BEDTIME 7 days 10/09/24 cream (Monistat 7) #45 grams nitrofurantoin 100 mg PO Q12H 3 days #6 caps 10/09/24 monohydrate/macrocrystals 100 mg capsule (Macrobid) miconazole nitrate 2 % topical 1 appl topical BID #28 grams 01/01/25 cream valsartan 160 mg tablet 160 mg PO DAILY #90 tabs 01/20/25 ofloxacin 0.3 % ear drops 10 drp otic (ears) DAILY 7 days #5 02/01/25 mL docusate sodium 100 mg capsule 200 mg (2 x 100 mg) PO BID #30 caps 02/07/25 (Col-Rite) polyethylene glycol 3350 17 17 g PO Q8H #238 grams 02/07/25 gram/dose oral powder (ClearLax) white petrolatum 41 % topical 1 appl topical BID PRN irritated 02/07/25 ointment (Advanced Healing skin #50 grams (Petrolatum)) azithromycin 250 mg tablet See Rx Instructions PO .COMPLEX #6 02/14/25 (Zithromax Z-Alirio) tabs Allergies Allergy/AdvReac Type Severity Reaction Status Date / Time penicillin G [Penicillin G] Allergy Severe ITCHY/RASH Verified 02/13/25 23:47 Sulfa (Sulfonamide Allergy Severe ITCHY,RASH, Verified 02/13/25 23:47 Antibiotics) rash [Sulfa (Sulfonamides)] trimethoprim [From Bactrim] Allergy Severe HIVES Verified 02/13/25 23:47 Penicillins Allergy Intermediate Hives Verified 02/13/25 23:47 sulfamethoxazole Allergy Mild Hives Verified 02/13/25 23:47 [From Bactrim] Review of Systems Review of Systems: Yes all other systems are reviewed and are negative PMFSH Past Medical History 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 or 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 (family practice nurse practitioner) Unable to assess alcohol history related to: Unknown Alcohol intake: never Patient Tobacco Use Status: Never used Tobacco Smoked in Last 30 Days: No Advance Directives: Yes Advance Directives on File: Yes Advance Directives Date on File: 01/28/24 Do you have a plan to hurt others: No Plan service: No Physical Exam ED Vital Signs: Vital Signs - 24 hr 02/13/25 23:45 Temperature 99.6 F Pulse Rate 82 Respiratory Rate 16 Blood Pressure 157/74 H Pulse Oximetry 96 Oxygen Delivery Method Room Air BMI result Body Mass Index 28.1 Appearance: Alert. Oriented X3. No acute distress. Anxious Eyes: PERRLA, No Nystagmus ENT: Pharynx normal. Oral Mucosa moist Neck: Normal inspection. Neck supple. CVS: Normal heart rate and rhythm. Pulses normal. Respiratory: No respiratory distress. Equal air entry bilateral, no wheezing/rales/rhonchi Abdomen: Soft and nontender. Bowel sounds are present, no mass palpable, no CVA tenderness Skin: Skin warm and dry. Normal skin color. Normal skin turgor. Extremities: No lower extremity edema. No calf tenderness Neuro: Oriented X 3. No motor deficit. No sensory deficit.No cerebellar signs , cranial nerves II-XII intact Medical Decision Making Medical Decision Making MDM Narrative: Patient has chronic sinus/bronchitis/sore throat problem will give a course of Zithromax chest x-ray COVID flu RSV negative strep test also negative but patient is still feel congested Lab Data [facility] Lab Attestation statement: I reviewed the patient's lab results. Labs: Lab Results 02/14/25 Range/Units 00:10 Influenza Type A (PCR) NEGATIVE (Negative) Influenza Type B (PCR) NEGATIVE (Negative) RSV RNA Qual (PCR) NEGATIVE (Negative) SARS-CoV-2 RNA (RT-PCR) NEGATIVE (Negative) S. pyogenes GrpA MYAH Negative (Negative) Independent Interpretation I performed an independent interpretation of an: Plain X-Ray Radiology Impression Discussion of test interpretation with radiology: I have reviewed the radiologist's reading. Radiologist Impression: NAD Discharge Plan Discharge Clinical Impression: Acute pharyngitis Patient Disposition: Home, Self-Care Instructions: Pharyngitis (ED) Additional Instructions: Drink plenty of fluids Take antibiotic as prescribed Your COVID flu RSV strep negative chest x-ray also negative Prescriptions: New azithromycin [Zithromax Z-Alirio] 250 mg tablet See Rx Instructions .ROUTE .COMPLEX Qty: 6 0RF Rx Instructions: For 250 mg dose pack: take 500 mg today (day 1), then 250 mg for 4 days (days 2-5) No Action metoprolol succinate 50 mg tablet extended release 24 hr 50 mg PO DAILY Qty: 90 2RF valsartan 160 mg tablet 160 mg PO DAILY Qty: 90 1RF mirtazapine 45 mg Tablet 45 mg PO BEDTIME omeprazole 20 mg Tablet,Delayed Release (Dr/Ec) 20 mg PO DAILY@0630 fluticasone propionate [Flonase Allergy Relief] 50 mcg/actuation spray,suspension 2 spray intranasal DAILY Qty: 16 0RF Rx Instructions: administer into each nostril hydroxyzine HCl 25 mg tablet 25 mg PO TID PRN (Reason: anxiety) Qty: 6 0RF hydroxyzine HCl 25 mg tablet 25 mg PO TID PRN (Reason: anxiety) Qty: 20 0RF miconazole nitrate 2 % cream 1 appl topical BID Qty: 28 0RF trazodone 50 mg tablet 50 mg PO BEDTIME ferrous sulfate [FeroSul] 325 mg (65 mg iron) tablet 325 mg PO DAILY diphenhydramine HCl [Lou-Dryl] 25 mg tablet 25 mg PO BEDTIME PRN (Reason: itch) bisacodyl 5 mg tablet,delayed release (DR/EC) 5 mg PO DAILY PRN (Reason: constipation) rosuvastatin 20 mg tablet 20 mg PO BEDTIME aspirin 81 mg tablet,delayed release (DR/EC) 81 mg PO QAM multivitamin Tablet 1 tab PO QAM melatonin 10 mg tablet extended release 10 mg PO BEDTIME PRN (Reason: Insomnia) cholecalciferol (vitamin D3) 25 mcg (1,000 unit) tablet 25 mcg PO DAILY ondansetron 4 mg tablet,disintegrating 4 mg PO Q6H PRN (Reason: nausea and vomiting) Qty: 10 0RF acetaminophen 500 mg tablet 500 mg PO Q8H PRN (Reason: pain) zolpidem 5 mg tablet 5 mg PO BEDTIME PRN (Reason: Insomnia) ipratropium bromide 21 mcg (0.03 %) spray,non-aerosol 2 spray intranasal BID clonazepam 0.5 mg Tablet 0.5 mg PO TID Qty: 180 0RF gabapentin 100 mg Capsule 100 mg PO TID Qty: 180 0RF nitrofurantoin monohyd/m-cryst [Macrobid] 100 mg capsule 100 mg PO Q12H 3 Days Qty: 6 0RF Rx Instructions: must administer with a meal/food miconazole nitrate [Monistat 7] 2 % cream 1 appful vaginal BEDTIME 7 Days Qty: 45 0RF ofloxacin 0.3 % drops 10 drp otic (ears) DAILY 7 Days Qty: 5 0RF docusate sodium [Col-Rite] 100 mg capsule 200 mg PO BID Qty: 30 0RF polyethylene glycol 3350 [ClearLax] 17 gram/dose powder 17 g PO Q8H Qty: 238 0RF Advanced Healing (Petrolatum) 41 % ointment 1 appl topical BID PRN (Reason: irritated skin) Qty: 50 0RF amlodipine 10 mg tablet 10 mg PO DAILY meclizine 25 mg tablet 25 mg PO DAILY PRN Print Language: Qatari
--- OUTSIDE RECORDS SUMMARY | 2025-02-14 00:05 | XMS_ITS | Encounter Summary ---
Author Organization [employer] Address [address] [facility] [address] [place] [address] Care Team Providers Care Emergency Vehicle Driver Name Role Phone Name, Nitin PIKE Primary Care Provider [phone] Reason for Visit * Reason Onset Date Comments Med Refill 02/11/2025 Encounter Details Date Type Department Care Team (Late st Contact Info) Description 02/11/2025 Refill [facility] PEDS [address] [place], [place] [phone] Name, MD Nitin [address] [place] [address] Generalized anxiety disorder with panic attacks Social History Tobacco Use Types Packs/Day Years [...] the past 12 months, has t he [employer], gas, oil or water company threatened to [...] 10:00 AM EDT Office Visit [facility] MEDICINE [address] [place] [phone] NameNitin MD [address] [place] [phone] documented as of this encounter Visit Diagnoses Diagnosis Generalized anxiety disorder with panic attacks documented in this encounter Additional Health Concerns Assessment Noted Time PHQ-9 Depression Total Score: 6 02/13/20 9:14 AM EDT documented as of this encounter Care Teams Emergency Vehicle Driver Relationship Specialty Start Date End Date NameNitin MD [address] [place] [address] PCP - General Family Medicine 08/26/17 [facility] 09/01/24 documented as of this encounter
--- OUTSIDE RECORDS SUMMARY | 2025-02-14 00:05 | XMS_ITS | Encounter Summary ---
Author Organization [employer] Address [address] [facility] [address] [place] [address] Care Team Providers Care Binitrotoluene Operator Name Role Phone Name, Nitin PIKE Primary Care Provider [phone] Reason for Visit * Reason Onset Date Comments Med Refill 11/08/2024 Encounter Details Date Type Department Care Team ([facility] st Contact Info) Description 11/08/2024 Telephone [facility] MEDICINE [address] [place], [place] [phone] Name, MD Nitin [address] [place] [address] Med Refill Social History Tobacco Use Types Packs/Day Years [...] encounter Miscellaneous Notes * Telephone Encounter - Lisha Kelly LPN - 11/08/2024 9:40 AM EST Medication isn't prescribed by PCP. * Telephone Encounter - Anaid Vinson - 11/08/2024 9:10 AM EST TC from pt requesting medication refill. Medications needing refill : zolpidem (Ambien) 5 MG tablet To be sent to: [facility] - [place], [place] - [address] [facility] documented in this encounter Plan of Treatment Upcoming Encounters Date Type Department Care Team ([facility] st Contact Info) Description 04/29/2025 10:00 AM EDT Office Visit [facility] MEDICINE [address] [place] [address] Name, MD Nitin [address] [place] [address] documented as of this encounter Visit Diagnoses Not on filedocumented in this encounter Additional Health Concerns Assessment Noted Time PHQ-9 Depression Total Score: 6 02/13/20 24 9:14 AM EDT documented as of this encounter Care Teams Binitrotoluene Operator Relationship Specialty Start Date End Date Name, MD Nitin [address] [place] [address] PCP - General Family Medicine 08/26/17 [facility] 09/01/24 documented as of this encounter
--- OUTSIDE RECORDS SUMMARY | 2025-02-14 00:06 | XMS_ITS | Data Portability ---
Author Organization [email or web address] Address [address] [place] [phone] Care Team Providers Care Internal Revenue Agent Name Role Phone HIM CCA Primary Care Provider [phone] Assessment No assessment recorded. Plan of Treatment [...] Last Updated DateTime 18 /min 74 /min 03471.9 28 g 98 % 98 % 100 [degF] 130 mm[Hg] 66 mm[Hg] Not Available [employer] 15:33:18 Social History None recorded. Functional Status None recorded. Mental Status None recorded. Family History Nothing Reported. Medical History No medical history recorded. Gynecological HistoryNo gynecological history recorded. 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 She called today because she insists on having the catheter removed. It was removed by the emissions testing and repair technician with the understand ing that if she can't void, she will need to go the the ER. The patient agreed with this plan. [id number] Rohit Benton MD Main - [address] [address] 02/06/2024 15:33:16 02/09/2024 18:20:42 Chronic retention of urine [id number] R33.8 Has bunn catheter which was recently [...] [place] Member ID Guarantor Name 01/31/2024 1 [facility] - DOS ON OR AFTER 2023 - DUAL ELIGIBLE - FDC OPTIONS AND ONE CARE (MEDICARE REPLACEMENT/ADV ANTAGE - HMO) Noreen Wing [id number] Noreen Wing 02/06/2024 1 [facility] - DOS ON OR AFTER 2023 - DUAL ELIGIBLE - FDC OPTIONS AND ONE CARE (MEDICARE REPLACEMENT/ADV ANTAGE - HMO) Noreen Wing [id number] Noreen Wing Notes Date Note Type Note Provider Name and Address Organization Details Recorded Time 01/31/2024 text/html [facility] Nurse Triage Notes (Joana Dominique): Reason For Request: Bunn catheter malfunction/painful Chief Complaints: UTI/Pyelonephritis, Equipment-Related Allergies: No Known Comments: [place] speaking member who denies any PMH, denies [...] Epifanio Mcintyre MD [address], [place], [address], [email or web address] 01/31/2024 19:05:57 02/06/2024 text/html HPI: Member asked for HV tomorrow after 10 AM if possible. Treated at the [facility] ER today, for F/u leaking, stated is [...] son Jame Wing. Member is 78 y/o [place] speaking female who resides on [facility] with her son. Member has multiple [...] sees her BH counselor weekly and Prescriber [employer]PER[employer] [place] monthly if needed or every 2-3 months, .................... .................... .................... .................... .................... .................... .................... . [facility] Nurse Triage Notes (Zafar Irving): Comments: Reviewed HPI .................... .................... .................... .................... .................... .................... .................... . [facility] [place] Note From [place]: Pt sts doesn? [...] Vitals stable. Urine clear and light yellow. [facility] contacted and advised pt to rest and advised to make sure she goes to appt Friday. Pt son was used as warehouse shipper. Pt education on signs indicating the ER. Clock [facility] Allergies: Clindamycin .................... .................... .................... .................... .................... .................... .................... . Disposition: Fulfilled Rohit Benton MD [address] [facility], [place], [address], [email or web address] 02/06/2024 17:58:19 OBGyn Episode No OBEpisode recorded.
--- OUTSIDE RECORDS SUMMARY | 2025-02-14 00:06 | XMS_ITS | Encounter Summary ---
Author Organization [facility] Address [address] [facility] [address] [place] [address] Care Team Providers Care Interior Assemblies Installer Name Role Phone Name, Nitin PIKE Primary Care Provider [phone] Encounter Details Date Type Department Care Team ([facility] Contact Info) Description 08/08/2023 Telephone [facility] MEDICINE [address] [place] [address] [phone] Name, MD Nitin [address] [place] [address] [phone] Social History Tobacco Use Types Packs/Day Years [...] Description 04/29/2025 10:00 AM EDT Office Visit [facility] MEDICINE [address] [place] [phone] NameNitin MD [address] [place] [address] [phone] documented as of this encounter Visit Diagnoses Not on filedocumented in this encounter Additional Health Concerns Assessment Noted Time PHQ-9 Depression Total Score: 12 023 9:37 AM EDT documented as of this encounter Care Teams Interior Assemblies Installer Relationship Specialty Start Date End Date Name, MD Nitin [address] [place] [address] PCP - General Family Medicine 08/26/17 [facility] 09/01/24 documented as of this encounter
--- OUTSIDE RECORDS SUMMARY | 2025-02-14 00:06 | XMS_ITS | Clinical Summary ---
Author Organization [facility] Address [address] [place] [address] Phone Care Team Providers Care Plate Fitter Name Role Phone Physician, No Pcp Primary Care Provider Unavaila ble Allergies No known active allergies Medications No known medications Medical History Medical History Date Comments Hypertension [...] 07/21/2019, 06/08/2015, Additional history exists RSV Immunization Adult Patients Completed 12/26/2023 COVID-19 Vaccine Completed 08/16/2024, , [...] mmol/L LAB CHEMISTRY METHOD 09/22/2024 3:15 AM EST [facility] Potassium 4.6 3.5 - 5.5 mmol/L LAB CHEMISTRY METHOD 09/22/2024 3:15 AM [facility] Chloride 98 96 - 110 mmol/L LAB CHEMISTRY METHOD 09/22/2024 3:15 AM [facility] CO2 28 21 - 32 mmol/L LAB CHEMISTRY METHOD 09/22/2024 3:15 AM [facility] Anion Gap 6 3 - 11 LAB CHEMISTRY METHOD 09/22/2024 3:15 AM [facility] Glucose 119(H) 70 - 100 mg/dL LAB CHEMISTRY METHOD 09/22/2024 3:15 AM [facility] BUN 25 5 - 25 mg/dL LAB CHEMISTRY METHOD 09/22/2024 3:15 AM [facility] Creatinine 1.18(H) 0.50 - 1.10 mg/dL LAB CHEMISTRY METHOD 09/22/2024 3:15 AM [facility] eGFR 47(L) >=60 mL/min/1. 73m2 LAB CHEMISTRY METHOD 09/22/2024 3:15 AM [facility] Comment:Calculation based on the??Chronic Kidney Disease Epidemiology Collaboration (CKD-EPI) equation refit??without adjustment for race. BUN/Creatinine Ratio 21.2 LAB CHEMISTRY METHOD 09/22/2024 3:15 AM [facility] Calcium 9.3 8.5 - 10.5 mg/dL LAB CHEMISTRY METHOD 09/22/2024 3:15 AM [facility] AST (SGOT) 37 10 - 42 unit/L LAB CHEMISTRY METHOD 09/22/2024 3:15 AM [facility] ALT (SGPT) 25 10 - 60 unit/L LAB CHEMISTRY METHOD 09/22/2024 3:15 AM [facility] Alkaline Phosphatase 77 42 - 121 unit/L LAB CHEMISTRY METHOD 09/22/2024 3:15 AM [facility] Total Protein 8.0 6.0 - 8.0 g/dL LAB CHEMISTRY METHOD 09/22/2024 3:15 AM EST [facility] Albumin 4.2 3.2 - 5.0 g/dL LAB CHEMISTRY METHOD 09/22/2024 3:15 AM EST [facility] Total Bilirubin 0.4 0.0 - 1.4 mg/dL LAB CHEMISTRY METHOD 09/22/2024 3:15 AM EST [facility] Blood Venous blood specimen / Unknown Venipuncture / Unknown 09/22/2024 2:28 AM EST 09/22/2024 2:31 AM EST us Paul RUIZ LAB BLOOD ORDERABLES Final Resul t [facility] [address] [place] [address], from Last 3 Months or Most Recently Relevant to Health Maintenance Insurance [facility] MEDICARE Member Subscriber Plan / Payer (Ef fective 2021-Present) Name:MaciejNoreen Relation to Subscriber:Self Name:Noreen Wing Payer ID:[id number] Group ID:[id number] Type:Not on file Address: [place] [address] [place] [phone] Care Teams Plate Fitter Relationship Specialty Start Date End Date Physician, No Pcp PCP - General 09/22/24
--- OUTSIDE RECORDS SUMMARY | 2025-02-14 00:06 | XMS_ITS | Clinical Summary ---
Author Organization [facility] Facility Address [address] [address] Care Team Providers Care Supervisor Anodizing Name Role Phone Name, Nitin PIKE Primary Care Provider [phone] Allergies Active Allergy Reactions Criticality Noted Date [...] patient's age to complete this topic Insurance [facility] MCR ([id number]) [place] [phone] [facility] ([id number]) Care Teams Supervisor Anodizing Relationship Specialty Start Date End Date Name, MD Nitin [address] [place] [phone] PCP - General Internal Medicine 10/15/22
--- OUTSIDE RECORDS SUMMARY | 2025-02-14 00:06 | XMS_ITS | Encounter Summary ---
Author Organization [employer] Address [address] [facility] [address] [place] [address] Care Team Providers Care Junior High [employer] Principal Name Role Phone Name, Nitin PIKE Primary Care Provider [phone] Reason for Visit * Reason Comments Med Refill Encounter Details Date Type Department Care Team (Late st Contact Info) Description 01/09/2025 Refill [facility] [address] [place] [address] [phone] Name, MD Nitin [address] [place] [address] Hypertension, unspecified type Social History Tobacco Use [...] Office Visit [facility] MEDICINE [address] [place] [phone] NameNitin MD [address] [place] [address] documented as of this encounter Visit Diagnoses Diagnosis Hypertension, unspecified type documented in this encounter Additional Health Concerns Assessment Noted Time PHQ-9 Depression Total Score: 6 02/13/20 9:14 AM EDT documented as of this encounter Care Teams [employer] Principal Relationship Specialty Start Date End Date Name, MD Nitin [address] [place] [phone] PCP - General Family Medicine 08/26/17 [facility] 09/01/24 documented as of this encounter
--- OUTSIDE RECORDS SUMMARY | 2025-02-14 00:06 | XMS_ITS | Clinical Summary ---
Author Organization [employer] Address [address] [facility] [address] [place] [address] Care Team Providers Care Oyster Shucker Name Role Phone Name, Nitin PIKE Primary Care Provider [phone] Allergies Active Allergy Reactions Criticality Noted Date [...] MOUTH EVERY 8 HOURS NEEDED FOR PAIN (WOLOF LABEL) 90 tablet Active ammonium lactate (Lac-Hydrin) 12 % lotion [...] 100 mg by mouth in the morning. Active Multiple Vitamin (Multivitamin) tablet TAKE 1 TABLET BY MOUTH EVERY MORNING 90 tablet 3 024 Active rosuvastatin (Crestor) 20 MG tablet TAKE 1 TABLET BY MOUTH EVERY EVENING 90 tablet 3 024 Active zolpidem (Ambien) 5 MG tabletIndicatio ns:Primary insomnia Take 1 tablet (5 mg) by mouth if needed at bedtime for sleep for up to 7 days. 7 tablet 025 Active Aspirin Adult Low Strength 81 MG EC tabletIndicatio ns:Prediabetes TAKE 1 TABLET BY MOUTH EVERY MORNING 90 tablet 1 025 Active Ferrous Sulfate (iron) 325 (65 Fe) MG tablet TAKE 1 TABLET BY MOUTH EVERY MORNING WITH FOOD 30 tablet 025 Active cholecalciferol (Vitamin D-3) 25 MCG tabletIndicatio ns:Vitamin D deficiency TAKE 1 TABLET BY MOUTH TWICE DAILY IN THE MORNING AND IN THE EVENING 60 tablet 025 Active amLODIPine (Norvasc) 10 MG tabletIndicatio ns:Hypertension , unspecified type TAKE 1 TABLET BY MOUTH EVERY MORNING 90 tablet 1 025 Active linaCLOtide (Linzess) 145 MCG capsuleIndicati ons:Chronic constipation Do not crush or chew.TAKE 1 CAPSULE BY MOUTH EVERY DAY BEFORE BREAKFAST, DO NOT BREAK, CRUSH, DISSOLVE OR CHEW 30 capsule 025 Active meclizine (Antivert) 25 MG tabletIndicatio ns:Vertigo TAKE 1 TABLET BY MOUTH EVERY DAY NEEDED 30 tablet 025 Active hydrOXYzine pamoate (Vistaril) 50 MG capsuleIndicati ons:Generalized anxiety disorder with panic attacks TAKE 1 CAPSULE BY MOUTH EVERY 8 HOURS NEEDED FOR ANXIETY 30 capsule Active Linzess 145 MCG capsuleIndicati ons:Chronic constipation TAKE 1 CAPSULE BY MOUTH EVERY DAY BEFORE BREAKFAST, DO NOT BREAK, CRUSH, DISSOLVE OR CHEW 30 capsule 025 2024 Discontinued(R eorder (will not trigger notification to Pharmacy)) meclizine (Antivert) 25 MG tabletIndicatio ns:Vertigo TAKE 1 TABLET BY MOUTH EVERY DAY NEEDED 30 tablet 025 2024 Discontinued(R eorder (will not trigger notification to Pharmacy)) hydrOXYzine pamoate (Vistaril) 50 MG capsuleIndicati ons:Generalized anxiety disorder with panic attacks Take 1 capsule (50 mg) by mouth every 8 (eight) hours if needed for anxiety for up to 10 days. 30 capsule 025 2024 Discontinued hydrOXYzine pamoate (Vistaril) 50 MG capsuleIndicati ons:Generalized anxiety disorder with panic attacks TAKE 1 CAPSULE BY MOUTH EVERY 8 HOURS NEEDED FOR ANXIETY 30 capsule 025 2024 Discontinued(R eorder (will not trigger notification to Pharmacy)) carbamide peroxide (Debrox) 6.5 % otic solution Administer 5-10 drops into affected ear(s) 2 times daily for 4 days. 30 mL 025 2024 hydrOXYzine pamoate (Vistaril) 50 MG capsuleIndicati ons:Generalized anxiety disorder with panic attacks TAKE 1 CAPSULE BY MOUTH EVERY 8 HOURS NEEDED FOR ANXIETY 30 capsule 025 2024 Discontinued(R eorder (will not trigger notification to Pharmacy)) Active Problems Problem Noted Date Diagnosed Date [...] little finger at forearm level, initial encounter 12/18/2023 02/0 06/2024 Left ear impacted cerumen 12/18/20232023 History of [...] because it calms her down. I called [facility] pharmacy to attempt a med rec they instructed me that she is on med box and one week at a time prescriptions because she would break into her med boxes to take more Ambien or xanax. She is being seen by Izzy Perea at [facility]. He is aware of her behavior and [...] left I received a call from the [facility] pharmacy instructing me that she was at [...] fairly normal, reassurance and told her to joseluis corral PCP Counseled re low gosia meals, avoid regular sugar, sodas and lots of carbs. Vertigo 11/19/2017 Moderate vascular dementia 09/09/2017 SVT (supraventricular tachycardia) 10/12/2013 Chronic constipation 05/26/2012 Urinary incontinence 05/26/2012 Depressive disorder 05/14/2012 Essential (primary) hypertension 05/14/2012 Assessment & Plan (01/27/2023 8:26 PM EDT): Exacerbated by anxiety. BP improved at the end of visit. No change in meds. JOSELUIS corral PCP Assessment & Plan (12/19/2022 10:42 AM EST): Likely exacerbated by anxiety, improved during visit. She denies other symptoms. She will go home to take her medications. Degeneration of lumbosacral intervertebral disc 05/14/2012 Encounters Date Type Department Care Team Description 02/11/2025 Refill [facility] [address] [place] [address] Name, MD Nitin Generalized anxiety disorder with panic attacks 02/07/2025 Orders Only GENERIC EXTERNAL DATA DEPARTMENT Provider, Generic External Data 02/06/2025 Orders Only GENERIC EXTERNAL DATA DEPARTMENT Provider, Generic External Data 02/02/2025 Refill [facility] [address] [place] [address] Nitin Echevarria MD Chronic constipation; Vertigo 02/01/2025 Refill [facility] [address] [place] [address] Nitin Echevarria MD Generalized anxiety disorder with panic attacks 01/31/2025 9:20 AM EDT Office Visit [facility] [address] [place] [address] Karely Patiño MD Impacted cerumen of left ear (Primary Dx) 01/24/2025 Refill [facility] MEDICINE [address] [place] [address] Nitin Echevarria MD Generalized anxiety disorder with panic attacks; Hypertension, unspecified type 01/10/2025 11:00 AM EST Office Visit [facility] MED[facility] [address] [place] [address] Nitin Echevarria MD Generalized anxiety disorder with panic attacks (Primary Dx); Cerumen debris on tympanic membrane of both ears 01/10/2025 Travel 01/09/2025 Refill [facility] [address] [place] [address] Nitin Echevarria MD Hypertension, unspecified type 01/05/2025 Telephone [facility] [address] [place] [address] Nitin Echevarria MD chartprep 01/03/2025 Refill [facility] [address] [place] [address] Nitin Echevarria MD Vertigo; Vitamin D deficiency 12/26/2024 Refill [facility] [address] [place] [address] Nitin Echevarria MD Prediabetes 12/17/2024 Refill [facility] [address] [place] [address] Daphne Fofana MD Chronic constipation; Vitamin D deficiency 12/06/2024 Refill [facility] [address] [place] [address] Nitin Echevarria MD Vertigo 11/24/2024 Refill [facility] MED[facility] [address] [place] [address] Name, MD Nitin Vitamin D deficiency; Chronic constipation 11/23/2024 Telephone [facility] [address] [place] [address] Name, MD Nitin Call Back Request from Last 3 Months Immunizations Name Administration Dates Next Due INFLUENZA VACCINE QUADRIVALE NT RECOMBINANT PRESERVATIVE FREE RIV4 08/13/2020 Influenza High-dose Quadriva lent Preservative Free 07/26/2022 Influenza Quadrivalent Adjuvanted 07/24/2023, Influenza injectable quadriv alent IIV4 with preservative 08/13/2020,08/02/2016,08/28/2015 Influenza, High Dose Seasona l, Preservative Free 08/16/2024,08/05/2017 Influenza, Split (incl. sunita fied surface antigen) 07/19/2013,08/04/2012 Influenza, Unspecified 07/26/2022 Influenza, trivalent, adjuvanted 07/06/2019,09/0 02/2018 Moderna Covid-19 Vaccine 12+ 02/19/2022,01/19/20 21,12/22/2020 Pfizer [...] Sign Reading Time Taken Comments Blood Pressure 146/77 01/31/2025 9:04 AM EDT Pulse 88 01/31/2025 9:04 AM EDT Temperature 36.6 ??C (97.8 ??F) 01/31/2025 9:04 AM ED T Respiratory Rate 20 01/31/2025 9:04 AM EDT Oxygen Saturation 96% 01/10/2025 11:31 AM EST Inhaled Oxygen Concentration - - Weight 83.6 kg (184 lb 6.4 oz) 01/31/2025 9:04 A M EDT Height 165.1 cm (5' 5 ) 08/30/2024 8:56 AM EDT Body Mass Index 30.69 08/30/2024 8:56 AM EDT Plan of Treatment Upcoming Encounters Date Type Department Care Team (Late st Contact Info) Description 04/29/2025 10:00 AM EDT Office Visit [facility] MEDICINE [address] [place], [place] [phone] Name, MD Nitin [address] [place] [address] Health Maintenance Due Date Last Done Comments Depression Screening 02/12/2025 02/13/2024, 02/13/20 Alcohol/Substance Use Screening 06/14/2025 06/14/2024 SDOH Screening 06/14/2025 06/14/2024 Diabetes: Hemoglobin A1C 01/10/2026 025, 06/02/2023, 12/25/2022, Additional history exists Tobacco Screening 01/31/2026 01/31/2025 Lipid Panel 09/19/2027 09/19/2022, 01/08, 04/12/2021 DTaP/Tdap/Td [...] Procedure Name Priority Date/Time Associated Diagnosis Comments XR KUB AND UPRIGHT 2 VIEWS Routine 02/07/2025 12:53 AM EDT CULTURE, URINE, ROUTINE Routine 02/07/2025 12:00 AM EDT URINALYSIS, COMPLETE, WITH REFLEX TO CULTURE Routine 02/06/2025 11:50 PM EDT POCT GLUCOSE Routine 01/10/2025 11:03 AM EST Generalized anxiety disorder with panic attacks POCT GLYCATED HEMOGLOBIN, TOTAL Routine 01/10/2025 11:02 AM EST Generalized anxiety disorder with panic attacks LIPID PANEL, STANDARD Routine 09/19/2022 8:08 AM EST from Last 3 Months or Most Recently Relevant to Health Maintenance Results * XR KUB and Upright 2 Views (02/07/2025 12:53 AM EDT) Anatomical Region Laterality Modality Radiographic Lauren ging 02/07/2025 12:5 3 AM EDT Narrative 02/07/2025 12:55 AM EDT ? [facility] ?[address] ?[place] [address] ?XRay Report ? Signed ? Patient: Wing,Noreen ?MR#: [id number] ? : 1945 ?Acct:[id number] ? Age/Sex: 79 / F ?ADM Date: 02/06/25 ? Loc: HO.ED ? Attending Dr: ? Ordering Physician: Jeanne Shen ?? Date of Service: 02/07/25 ?? Procedure(s): XR KUB ?? Accession Number(s): [id number] ? cc: Jeanne Shen; [facility] ? CLINICAL HISTORY: pain ? 1 view abdomen ? Comparison: None ? Findings: ?? No acute fractures. ?? Degenerative changes in the hips and pelvis, with heterotopic ossification ?? along the right hip. ? Large colonic stool burden. ?? Nonobstructive bowel-gas pattern. ? IMPRESSION: ?? Large colonic stool burden. ? This document has been electronically signed by: Jonathon Cortés MD on ?? 02/07/2025 00:53:27 ? Dictated By: ?Jonathon Cortés MD ? Signed By: ?<Electronically signed by Jonathon Cortés MD in OV> ?02/07/25 0054 ? DD/ 0053 ? TD/TT: 02/07/25 0053 ? Science Analyst: ? Procedure Note Donevaristo, Image - 02/07/2025 [place] [address] XRay Report Signed Patient: Jennifer Wing#: [id number] : 3Acct:[id number] Age/Sex: 79 / FADM Date: 02/06/25 Loc: HO.ED Attending Dr: Ordering Physician: Jeanne Shen Date of Service: 02/07/25 Procedure(s): XR KUB Accession Number(s): [id number] cc: Jeanne Shen; [facility] CLINICAL HISTORY: pain 1 view abdomen Comparison: None Findings: No acute fractures. Degenerative changes in the hips and pelvis, with heterotopic ossification along the right hip. Large colonic stool burden. Nonobstructive bowel-gas pattern. IMPRESSION: Large colonic stool burden. This document has been electronically signed by: Jonathon Cortés MD on 02/07/2025 00:53:27 Dictated By: Jonathon Cortés MD Signed By: <Electronically signed by Jonathon Cortés MD in OV> 02/07/2553 DD/ TD/TT: 02/07/2552 Science Analyst: [facility] External Provider IMG XR PROCEDURES Edited Result - Final * Culture, Urine, Routine (02/07/2025 12:00 AM EDT) Urine Urine specimen obtained by clean catch procedure / Unknown 02/07/2025 02/07/2025 Comment:UACC Narrative [facility] - 02/08/2025 8:36 AM EDT Urine Culture Report Result Urine Culture 50,000 to 100,000 cfu/ml Urine Culture Mixed bacterial jann characteristic of Urine Culture urogenital contamination. Specimen Source: Urine clean catch Generic External Data Provider LAB MICROBIOLOGY - GENERAL ORDERABLES Final Result Performing Organization Address City/State/[facility] Co de Phone Number [facility] [address] [place] [phone] * (ABNORMAL) Urinalysis, Complete, with Reflex to Culture (02/06/2025 11:50 PM EDT) Color Urine Yellow [facility] Appearance Urine Hazy [facility] PH 6.0 5.0 - 9.0 [facility] Glucose Urine UA Negative Negative mg/dL [facility] Urine Blood Trace Negative [facility] Specific Corea - Urine 1.020 1.005 - 1.025 [facility] Urine Protein Negative Neg-Trace mg/dL [facility] Urine Ketones Negative Negative mg/dL [facility] Nitrite Urine Negative Negative [facility] Leukocyte Esterase Urine Moderate (2+)(A) Negative [facility] RBC Urine 0-2 0 - 2 /HPF [facility] Urine WBC 11-20(A) 0 - 5 /HPF [facility] Urine Squamous Epithelial Cell 6-10 0 - 2 /HPF [facility] Urine Bacteria 2+ None Seen [facility] Hyaline Casts, Urine 0-2 0 - 2 /LPF [facility] 02/06/2025 11:5 0 PM EDT 02/06/2025 11:56 PM EDT Narrative [facility] - 02/07/2025 12:13 AM EDT Urine, Clean Catch Generic External Data Provider LAB URINE ORDERAB LES Final Result [facility] [address] [place] [address] [phone] * POCT Glucose (01/10/2025 11:03 AM EST) Pathologist [facility] Glucose Blood, POC 110 60 - 200 mg/dL QC Media Lot # [id number] Lot# Expiration Date Blood Capillary blood specimen / Unknown 01/10/2025 11:03 AM EST Nitin Echevarria MD POINT OF CARE TEST ENTER/EDIT OR DERABLES Final Result * POCT HGB A1C (01/10/2025 11:02 AM EST) [facility] Hemoglobin A1C 5.1 4.0 - 6.0 % QC Media Lot # [id number] Lot# Expiration Date 587 Blood 01/10/2025 11:0 2 AM EST Nitin Echevarria MD POINT OF CARE TEST ENTER/EDIT OR DERABLES Final Result * (ABNORMAL) LIPID PANEL, STANDARD (09/19/2022 8:08 AM EST) Pathologist [facility] Chol/HDLC Ratio 2.9 <5.0 (calc) CONVERTED LEGACY [...] ?? LDL-C is now calculated using the López ?? calculation, which is a validated novel method providing ?? better accuracy than the Friedewald equation in the ?? estimation of LDL-C. ?? Jack RAYO et al. JITENDRA. 2013;310(19): 0189-5336 ?? (http://[employer].UBmatrix/faq/FHV296) Non-HDL Cholesterol 88 <130 mg/dL (calc) CONVERTED [...] Most Recently Relevant to Health Maintenance Insurance [facility] Care Teams Oyster Shucker Relationship Specialty Start Date End Date Name, MD Nitin [address] [place] [phone] PCP - General Family Medicine 08/26/17 [facility] 09/01/24
--- OUTSIDE RECORDS SUMMARY | 2025-02-14 00:06 | XMS_ITS | Encounter Summary ---
Author Organization [employer] Address [address] [facility] [address] [place] [address] Care Team Providers Care Financial Services Education Consultant Name Role Phone Name, Nitin PIKE Primary Care Provider [phone] Reason for Visit * Reason Onset Date Comments ER Follow-up 05/31/2024 Encounter Details Date Type Department Care Team ([facility] st Contact Info) Description 05/31/2024 Telephone [facility] MED[facility] [address] [place], [place] [phone] Name, MD Nitin [address] [place] [address] ER Follow-up Social History Tobacco Use Types [...] 05/31/2024 1:36 PM EDT T/C to Pat ([facility]) [phone] for below message, no answer. LVM to call back on [phone]. * Telephone Encounter - Melany Santos RN - 05/31/2024 1:32 PM EDT DAVID T/C to pt. Through MVERSE id - [id number] for below message, pt. Had recent fall and ED visit at [facility]. RN will request GRACE piedra from [facility]. Pt. Is doing good, states I am tired andsleeping. Pt. Dose not has any question or concern right now. Pt. Already has HDF apt. Schedule on 06/10/2024. Pt. Advised to give call to [facility] if any questions or concerns. Pt. Verbally agreed and understood. Please review and advise if needed. * Telephone Encounter - Adithya Solorzano - 05/31/2024 12:50 PM EDT Patient calling to report ED visit on : Date: 05/26 Hospital: [facility] Seen for: Fall, Back Pain Pat stated pt is requesting a sooner apt with pcp due to recent ER visit. PT is also requesting order for PT services for to go along with [facility]. documented in this encounter Plan of Treatment Upcoming Encounters Date Type Department Care Team (Late st Contact Info) Description 04/29/2025 10:00 AM EDT Office Visit [facility] [address] [place] [address] Name, MD Nitin [address] [place] [address] documented as of this encounter Visit Diagnoses Not on filedocumented in this encounter Additional Health Concerns Assessment Noted Time PHQ-9 Depression Total Score: 6 02/13/20 24 9:14 AM EDT documented as of this encounter Care Teams Financial Services Education Consultant Relationship Specialty Start Date End Date Name, MD Nitin [address] [place] [address] PCP - General Family Medicine 08/26/17 [facility] 09/01/24 documented as of this encounter
--- OUTSIDE RECORDS SUMMARY | 2025-02-14 00:06 | XMS_ITS | Encounter Summary ---
Author Organization [employer] Address [address] [facility] [address] [place] [address] Care Team Providers Care Help Desk Manager Name Role Phone Name, Nitin PIKE Primary Care Provider [phone] Reason for Visit * Reason Comments Med Refill Encounter Details Date Type Department Care Team ([facility] st Contact Info) Description 06/28/2024 Refill [facility] [address] [place], [place] [phone] Mel Anguiano FNP [address] [place] [address] Social History Tobacco Use Types Packs/Day Years [...] Description 04/29/2025 10:00 AM EDT Office Visit [facility] [address] [place] [address] Name, MD Nitin [address] [place] [address] documented as of this encounter Visit Diagnoses Not on filedocumented in this encounter Additional Health Concerns Assessment Noted Time PHQ-9 Depression Total Score: 6 02/13/20 9:14 AM EDT documented as of this encounter Care Teams Help Desk Manager Relationship Specialty Start Date End Date Name, MD Nitin [address] [place] [address] PCP - General Family Medicine 08/26/17 [facility] 09/01/24 documented as of this encounter
--- OUTSIDE RECORDS SUMMARY | 2025-02-14 00:06 | XMS_ITS | Encounter Summary ---
Author Organization [employer] Address [address] [facility] [address] [place] [address] Care Team Providers Care Tempering Oven Operator Name Role Phone Name, Nitin PIKE Primary Care Provider [phone] Reason for Visit * Reason Onset Date Comments Results 08/29/2023 Encounter Details Date Type Department Care Team ([facility] st Contact Info) Description 08/29/2023 Telephone [facility] MEDICINE [address] [place], [place] [phone] Name, MD Nitin [address] [place] [address] Results Social History Tobacco Use Types Packs/Day [...] 09/01/2023 11:51 AM EDT Pt evaluated in [facility] today and is scheduled with pcp 09/03/23. * Telephone Encounter - Janette Huitron - 08/29/2023 4:06 PM EDT Tc from pt requesting a call in regards to urine results. Please contact pt at [phone] (Moroccan) documented in this encounter Plan of Treatment Upcoming Encounters Date Type Department Care Team (Late st Contact Info) Description 04/29/2025 10:00 AM EDT Office Visit [facility] MED[facility]INE [address] [place] [address] Name, MD Nitin [address] [place] [address] documented as of this encounter Visit Diagnoses Not on filedocumented in this encounter Additional Health Concerns Assessment Noted Time PHQ-9 Depression Total Score: 12 023 9:37 AM EDT documented as of this encounter Care Teams Tempering Oven Operator Relationship Specialty Start Date End Date NameNitin MD [address] [place] [phone] PCP - General Family Medicine 08/26/17 [facility] 09/01/24 documented as of this encounter
--- OUTSIDE RECORDS SUMMARY | 2025-02-14 00:06 | XMS_ITS | Encounter Summary ---
Author Organization [facility] Address [address] [facility] [address] [place] [address] Care Team Providers Care Tablet Coater Name Role Phone NameNitin MD Primary Care Provider [phone] Encounter Details Date Type Department Care Team (Late st Contact Info) Description 05/26/2023 Orders Only [facility] MED[facility]INE [address] [place] [address] [phone] Noreen Fox MD [address] [place] [address] [phone] Social History Tobacco Use Types Packs/Day Years [...] Description 04/29/2025 10:00 AM EDT Office Visit [facility] MED[facility] [address] [place] [address] [phone] Name, MD Nitin [address] [place] [address] documented as of this encounter Visit Diagnoses Not on filedocumented in this encounter Care Teams Tablet Coater Relationship Specialty Start Date End Date Name, MD Nitin [address] [place] [address] PCP - General Family Medicine 08/26/17 [facility] 09/01/24 documented as of this encounter
--- OUTSIDE RECORDS SUMMARY | 2025-02-14 00:06 | XMS_ITS | Encounter Summary ---
Author Organization [employer] Address [address] [facility] [address] [place] [address] Care Team Providers Care Quality Assurance Consultant Name Role Phone Name, Nitin PIKE Primary Care Provider [phone] Reason for Visit * Reason Onset Date Comments ER Follow-up 05/04/2024 Encounter Details Date Type Department Care Team ([facility] st Contact Info) Description 05/04/2024 Telephone [facility] MEDICINE [address] [place], [place] [phone] Name, MD Nitin [address] [place] [address] ER Follow-up Social History Tobacco Use Types [...] 11:01 AM EDT T/C to pt. Through [place] id - [id number] for below message, No answer. LVM to call back [phone] . * Telephone Encounter - Adithya Solorzano - 05/04/2024 9:35 AM EDT Noreen with [facility] calling to report ED visit on : Date: 04/28 Hospital: [facility] Seen for: UTI, Nausea, Rash. Noreen advised will be forwarding message to team nurses. Please contact pt at [phone]. documented in this encounter Plan of Treatment Upcoming Encounters Date Type Department Care Team (Late st Contact Info) Description 04/29/2025 10:00 AM EDT Office Visit [facility] MEDICINE [address] [place] [address] Name, MD Nitin [address] [place] [address] documented as of this encounter Visit Diagnoses Not on filedocumented in this encounter Additional Health Concerns Assessment Noted Time PHQ-9 Depression Total Score: 6 02/13/20 24 9:14 AM EDT documented as of this encounter Care Teams Quality Assurance Consultant Relationship Specialty Start Date End Date Name, MD Nitin [address] [place] [address] PCP - General Family Medicine 08/26/17 [facility] 09/01/24 documented as of this encounter
--- OUTSIDE RECORDS SUMMARY | 2025-02-14 00:06 | XMS_ITS | Encounter Summary ---
Author Organization [employer] Address 75 [facility] [address]t [place] [address] Care Team Providers Care Compass Operator Name Role Phone Name, Nitin PIKE Primary Care Provider [phone] Reason for Visit * Reason Comments Med Refill Encounter Details Date Type Department Care Team ([facility] st Contact Info) Description 04/01/2024 Refill [facility] MEDICINE [address] [place], [place] [phone] Name, MD Nitin 230 [place] [address] Rash Social History Tobacco Use Types Packs/Day [...] Description 04/29/2025 10:00 AM EDT Office Visit [facility] MEDICINE [address] [place] [address] Name, MD Nitin [address] [place] [address] documented as of this encounter Visit Diagnoses Diagnosis Rash Rash and other nonspecific skin eruption documented in this encounter Additional Health Concerns Assessment Noted Time PHQ-9 Depression Total Score: 6 02/13/20 9:14 AM EDT documented as of this encounter Care Teams Compass Operator Relationship Specialty Start Date End Date NameNitin MD [address] [place] [address] PCP - General Family Medicine 08/26/17 [facility] 09/01/24 documented as of this encounter
--- OUTSIDE RECORDS SUMMARY | 2025-02-14 00:06 | XMS_ITS | Encounter Summary ---
Author Organization [employer] Address 75 [facility] [address] [place] [address] Care Team Providers Care Basket Patcher Name Role Phone Name, Nitin PIKE Primary Care Provider [phone] Reason for Visit * Reason Comments Med Refill Encounter Details Date Type Department Care Team ([facility] st Contact Info) Description 08/16/2024 Refill [facility] MED & PEDS [address] [place], [place] [phone] Name, MD Nitin [address] [place] [address] Heartburn Social History Tobacco Use Types Packs/Day [...] Description 04/29/2025 10:00 AM EDT Office Visit [facility] MEDICINE [address] [place] [address] NameNitin MD [address] [place] [address] documented as of this encounter Visit Diagnoses Diagnosis Heartburn documented in this encounter Additional Health Concerns Assessment Noted Time PHQ-9 Depression Total Score: 6 02/13/20 9:14 AM EDT documented as of this encounter Care Teams Basket Patcher Relationship Specialty Start Date End Date NameNitin MD [address] [place] [address] PCP - General Family Medicine 08/26/17 [facility] 09/01/24 documented as of this encounter
--- OUTSIDE RECORDS SUMMARY | 2025-02-14 00:06 | XMS_ITS | Encounter Summary ---
Author Organization [employer] Address 75 [facility] 7[address] [place] [address] Care Team Providers Care Brush Filler Hand Name Role Phone Name, Nitin PIKE Primary Care Provider [phone] Reason for Visit * Reason Onset Date Comments Hospital Follow-up 10/20/2024 Encounter Details Date Type Department Care Team ([facility] st Contact Info) Description 10/20/2024 Telephone [facility] MEDICINE 230 [place], [place] [phone] Name, MD Nitin 230 [place] [address] Hospital Follow-up Social History Tobacco Use Types [...] the past 12 months, has t he [employer], gas, oil or water company threatened to [...] from pt requesting a HDF appt. Hospital: [facility] Date of admission: 10/17 Discharge date: 10/19 Diagnosed: High Blood Pressure and Fever Contact pt at [phone] *Send message to [facility] Clinical Care Coordinators documented in this encounter Plan of Treatment Upcoming Encounters Date Type Department Care Team (Late st Contact Info) Description 04/29/2025 10:00 AM EDT Office Visit [facility] MEDICINE [address] [place] [address] Name, MD Nitin [address] [place] [address] documented as of this encounter Visit Diagnoses Not on filedocumented in this encounter Additional Health Concerns Assessment Noted Time PHQ-9 Depression Total Score: 6 02/13/20 24 9:14 AM EDT documented as of this encounter Care Teams Brush Filler Hand Relationship Specialty Start Date End Date Name, MD Nitin [address] [place] [address] PCP - General Family Medicine 08/26/17 [facility] 09/01/24 documented as of this encounter
--- OUTSIDE RECORDS SUMMARY | 2025-02-14 00:06 | XMS_ITS | Encounter Summary ---
Author Organization [employer] Address 75 [facility] 7[address] [place] [address] Care Team Providers Care Assistant Professor Of Forestry Name Role Phone Name, Nitin PIKE Primary Care Provider [phone] Reason for Visit * Reason Onset Date Comments FYI 08/11/2024 Encounter Details Date Type Department Care Team ([facility] st Contact Info) Description 08/11/2024 Telephone [facility] MEDICINE 230 [place], [place] [phone] Name, MD Nitin 230 [place] [address] FYI Social History Tobacco Use Types Packs/Day [...] any questions or concerns contact Darryl at [phone] documented in this encounter Plan of Treatment Upcoming Encounters Date Type Department Care Team ([facility] st Contact Info) Description 04/29/2025 10:00 AM EDT Office Visit [facility] MEDICINE 230 [place] [address] Name, MD Nitin 230 [place] [address] documented as of this encounter Visit Diagnoses Not on filedocumented in this encounter Additional Health Concerns Assessment Noted Time PHQ-9 Depression Total Score: 6 02/13/20 24 9:14 AM EDT documented as of this encounter Care Teams Assistant Professor Of Forestry Relationship Specialty Start Date End Date Name, MD Nitin 230 [place] [address] PCP - General Family Medicine 08/26/17 [facility] 09/01/24 documented as of this encounter
--- OUTSIDE RECORDS SUMMARY | 2025-02-14 00:07 | XMS_ITS | Encounter Summary ---
Author Organization [employer] Address 75 [facility] 7[address] [place] [address] Care Team Providers Care Switch Technician Name Role Phone Name, Niitn PIKE Primary Care Provider [phone] Reason for Visit * Reason Onset Date Comments Order(s) 12/09/2023 Encounter Details Date Type Department Care Team ([facility] st Contact Info) Description 12/09/2023 Telephone [facility] MEDICINE 230 [place], [place] [phone] Name, MD Nitin 230 [place], [place] [phone] Order(s) Social History Tobacco Use Types Packs/Day [...] orders. If any questions please contact Noreen [phone]. documented in this encounter Plan of Treatment Upcoming Encounters Date Type Department Care Team (Late st Contact Info) Description 04/29/2025 10:00 AM EDT Office Visit [facility] MEDICINE [address] [place] [address] Name, MD Nitin [address] [place] [address] documented as of this encounter Visit Diagnoses Not on filedocumented in this encounter Additional Health Concerns Assessment Noted Time PHQ-9 Depression Total Score: 12 023 9:37 AM EDT documented as of this encounter Care Teams Switch Technician Relationship Specialty Start Date End Date Name, MD Nitin [address] [place] [address] PCP - General Family Medicine 08/26/17 [facility] 09/01/24 documented as of this encounter
--- OUTSIDE RECORDS SUMMARY | 2025-02-14 00:07 | XMS_ITS | Encounter Summary ---
Author Organization [employer] Address 75 [facility] 7[address] [place] [address] Care Team Providers Care Java Tech Name Role Phone Name, Nitin PIKE Primary Care Provider [phone] Reason for Visit * Reason Onset Date Comments Verbal Orders 01/02/2024 Encounter Details Date Type Department Care Team ([facility] st Contact Info) Description 01/02/2024 Telephone [facility] MEDICINE 230 [place], [place] [phone] Name, MD Nitin 230 [place] [address] Verbal Orders Social History Tobacco Use Types [...] No answer. LVM to call back on [phone]. * Telephone Encounter - Melany Santos RN - 01/06/2024 10:25 AM EST Please review and advise for below request. * Telephone Encounter - Deana Bazzi - 01/02/2024 3:44 PM EST Tc from [facility] with S requesting verbal orders for discharge pt from Occupational Therapy, due to pt refuses services, please contact [facility] at [phone]. documented in this encounter Plan of Treatment Upcoming Encounters Date Type Department Care Team (Late st Contact Info) Description 04/29/2025 10:00 AM EDT Office Visit [facility] MEDICINE [address] [place] [address] Name, MD Nitin 230 [place] [address] documented as of this encounter Visit Diagnoses Not on filedocumented in this encounter Additional Health Concerns Assessment Noted Time PHQ-9 Depression Total Score: 12 023 9:37 AM EDT documented as of this encounter Care Teams Java Tech Relationship Specialty Start Date End Date Name, MD Nitin [address] [place] [address] PCP - General Family Medicine 08/26/17 [facility] 09/01/24 documented as of this encounter
--- OUTSIDE RECORDS SUMMARY | 2025-02-14 00:07 | XMS_ITS | Encounter Summary ---
Author Organization [employer] Address 75 [facility] [address] [place] [address] Care Team Providers Care Registered Diet Technician Name Role Phone Name, Nitin PIKE Primary Care Provider Encounter Details Date Type Department Care Team (Late st Contact Info) Description 11/06/2022 Orders Only [facility] CHC MED & PEDS [address] [place] [address] Lisha Kelly LPN Social History Tobacco Use [...] 10:00 AM EDT Office Visit [facility] MEDICINE [address] [place] [address] NameNitin MD [address] [place] [address] documented as of this encounter Visit Diagnoses Not on filedocumented in this encounter Care Teams Registered Diet Technician Relationship Specialty Start Date End Date Nitin Echevarria MD [address] [place] [address] PCP - General Family Medicine 08/26/17 [facility] 09/01/24 documented as of this encounter
--- OUTSIDE RECORDS SUMMARY | 2025-02-14 00:07 | XMS_ITS | Encounter Summary ---
Author Organization [employer] Address 75 [facility] 7[address] [place] [address] Care Team Providers Care Diabetes Manager Name Role Phone Name, Nitin PIKE Primary Care Provider [phone] Encounter Details Date Type Department Care Team ([facility] Contact Info) Description 01/06/2023 Orders Only [facility] CHC MED & PEDS [address] [place], [place] [phone] Lisha Kelly LPN Social History Tobacco Use [...] 10:00 AM EDT Office Visit [facility] MEDICINE 230 [place], [place] [phone] NameNiitn MD 230 [place] [address] documented as of this encounter Visit Diagnoses Not on filedocumented in this encounter Care Teams Diabetes Manager Relationship Specialty Start Date End Date NameNitin MD [address] [place] [address] PCP - General Family Medicine 08/26/17 [facility] 09/01/24 documented as of this encounter
--- OUTSIDE RECORDS SUMMARY | 2025-02-14 00:07 | XMS_ITS | Encounter Summary ---
Author Organization [employer] Address 75 [facility] 7[address] [place] [address] Care Team Providers Care Director Medical Writing Name Role Phone Name, Nitin PIKE Primary Care Provider [phone] Reason for Visit * Reason Onset Date Comments FYI 01/21/2024 ER Follow-up 01/21/2024 Encounter Details Date Type Department Care Team ([facility] st Contact Info) Description 01/21/2024 Telephone [facility] MEDICINE 230 [place], [place] [phone] Name, MD Nitin 230 [place] [address] FYI; ER Follow-up Social History Tobacco Use [...] - 01/21/2024 1:54 PM EDT Message from [facility] ED noted. [facility] note sent to medical records. PCP does not rx Trazodone. Pt to f/u with psych prescriber. Pt is scheduled for f/u with pcp 02/13/24. * Telephone Encounter - Jnaette Huitron - 01/21/2024 9:45 AM EDT Tc from [facility] ED calling in regards to pt. States pt was seen today for anxiety and is requesting trazodone. Will discharge pt with no medication change. Would also like to advise provider, pt was seen at [facility] on 01/17 for anxiety/insomnia as well documented in this encounter Plan of Treatment Upcoming Encounters Date Type Department Care Team (Late st Contact Info) Description 04/29/2025 10:00 AM EDT Office Visit [facility] MEDICINE 230 [place] [address] Name, MD Nitin [address] [place] [address] documented as of this encounter Visit Diagnoses Not on filedocumented in this encounter Additional Health Concerns Assessment Noted Time PHQ-9 Depression Total Score: 12 023 9:37 AM EDT documented as of this encounter Care Teams Director Medical Writing Relationship Specialty Start Date End Date Name, MD Nitin [address] [place] [address] PCP - General Family Medicine 08/26/17 [facility] 09/01/24 documented as of this encounter
--- OUTSIDE RECORDS SUMMARY | 2025-02-14 00:07 | XMS_ITS | Encounter Summary ---
Author Organization [employer] Address 75 [facility] 7[address] [place] [address] Care Team Providers Care Cotton Tier Name Role Phone Name, Nitin PIKE Primary Care Provider [phone] Encounter Details Date Type Department Care Team ([facility] Contact Info) Description 12/17/2022 Orders Only [facility] CHC MED & PEDS [address] [place], [place] [phone] Lisha Kelly LPN Social History Tobacco Use [...] 10:00 AM EDT Office Visit [facility] MEDICINE 230 [place] [address] NameNitin MD 230 [place] [address] documented as of this encounter Visit Diagnoses Not on filedocumented in this encounter Care Teams Cotton Tier Relationship Specialty Start Date End Date NameNitin MD 230 [place] [address] PCP - General Family Medicine 08/26/17 [facility] 09/01/24 documented as of this encounter
--- OUTSIDE RECORDS SUMMARY | 2025-02-14 00:07 | XMS_ITS | Encounter Summary ---
Author Organization [employer] Address 75 [facility] 7t [place] [address] Care Team Providers Care Documentation Improvement Specialist Name Role Phone Name, Nitin PIKE Primary Care Provider [phone] Reason for Visit * Reason Onset Date Comments Verbal Orders 12/15/2023 Encounter Details Date Type Department Care Team ([facility] st Contact Info) Description 12/15/2023 Telephone [facility] MEDICINE 230 [place], [place] [phone] Name, MD Nitin 230 [place] [address] Verbal Orders Social History Tobacco Use Types [...] 12:03 PM EST Tc from [facility] requesting verbal order to see pt 2 times a week for 4 weeks for Occupational Therapy, please contact [facility] at [phone] documented in this encounter Plan of Treatment Upcoming Encounters Date Type Department Care Team (Late st Contact Info) Description 04/29/2025 10:00 AM EDT Office Visit [facility] MEDICINE [address] [place] [address] Name, MD Nitin 230 [place] [address] documented as of this encounter Visit Diagnoses Not on filedocumented in this encounter Additional Health Concerns Assessment Noted Time PHQ-9 Depression Total Score: 12 023 9:37 AM EDT documented as of this encounter Care Teams Documentation Improvement Specialist Relationship Specialty Start Date End Date NameNitin MD 230 [place] [address] PCP - General Family Medicine 08/26/17 [facility] 09/01/24 documented as of this encounter
--- OUTSIDE RECORDS SUMMARY | 2025-02-14 00:07 | XMS_ITS | Encounter Summary ---
Author Organization [employer] Address 75 [facility] 7[address] [place] [address] Care Team Providers Care Marine Gear Keeper Name Role Phone Name, Nitin PIKE Primary Care Provider [phone] Reason for Visit * Reason Onset Date Comments triage 12/18/2022 Encounter Details Date Type Department Care Team ([facility] st Contact Info) Description 12/18/2022 Telephone [facility] MEDICINE 230 [place], [place] [phone] Name, MD Nitin 230 [place] [address] triage Social History Tobacco Use Types Packs/Day [...] 12/18/2022 2:35 PM EST Called pt. Via [employer] [place] seismic interpreter [id number] Eduardo. Pt. States that she has a [...] phone. Please reach out to pt. With [place] speaking another time to see what her [...] Description 04/29/2025 10:00 AM EDT Office Visit [facility] MEDICINE [address] [place] [address] Name, MD Nitin [address] [place] [address] documented as of this encounter Visit Diagnoses Not on filedocumented in this encounter Care Teams Marine Gear Keeper Relationship Specialty Start Date End Date Name, MD Nitin [address] [place] [address] PCP - General Family Medicine 08/26/17 [facility] 09/01/24 documented as of this encounter
--- OUTSIDE RECORDS SUMMARY | 2025-02-14 00:07 | XMS_ITS | Encounter Summary ---
Author Organization [employer] Address 75 [facility] 7[address] [place] [address] Care Team Providers Care Slusher Operator Name Role Phone Name, Nitin PIKE Primary Care Provider [phone] Reason for Visit * Reason Comments Med Refill Encounter Details Date Type Department Care Team (Late Contact Info) Description 03/02/2023 Refill [facility] MEDICINE [address] [place] [address] Karely Patiño MD [address] [place] [address] [phone] Social History Tobacco Use Types Packs/Day Years [...] In the last 10 days, have iraida u been in contact with someone who was confirmed or suspected to have Coronavirus/COVID-19? No / Unsure 03/04/2023 8:48 AM EDT documented as of this encounter Plan of Treatment Upcoming Encounters Date Type Department Care Team (Late st Contact Info) Description 04/29/2025 10:00 AM EDT Office Visit [facility] MEDICINE [address] [place] [address] Wale, MD Nitin [address] [place] [address] documented as of this encounter Visit Diagnoses Not on filedocumented in this encounter Care Teams Slusher Operator Relationship Specialty Start Date End Date Name, MD Nitin 230 [place] [address] PCP - General Family Medicine 08/26/17 [facility] 09/01/24 documented as of this encounter
--- OUTSIDE RECORDS SUMMARY | 2025-02-14 00:07 | XMS_ITS | Encounter Summary ---
Author Organization [employer] Address 75 [facility] 7[address] [place] [address] Care Team Providers Care Ship Rigger Apprentice Name Role Phone Name, Nitin PIKE Primary Care Provider [phone] Reason for Visit * Reason Onset Date Comments Durable Medical Equipment 12/09/2023 Encounter Details Date Type Department Care Team ([facility] st Contact Info) Description 12/09/2023 Telephone [facility] MEDICINE 230 [place], [place] [phone] Name, MD Nitin 230 [place], [place] [phone] Durable Medical Equipment Social History Tobacco Use [...] 10:11 AM EST DME rx faxed to [facility] as requested. RN will consult with S nurse and provide referral. * Telephone Encounter - Fozia Jacob RN - 12/09/2023 4:58 PM EST Call returned to [facility] at [facility] [phone] ext. [phone]. [facility] states that [facility] attempted to provide PT at home but pt refused. [facility] pt is requesting outpatient PT. [facility] pt is seeing a counselor more regularly and has agreed to VNA referral. Reports pt has had 3 falls in the past 2 months. [facility] states [facility] no longer has visiting nurses. [facility] recommends [employer] or [facility] for VNA referral. [facility] also requesting DME rx for rollator walker and a straight cane. Requests that DME rx be faxed to [phone]. Advised requests will be sent to pcp. * Telephone Encounter - Adithya Solorzano - 12/09/2023 4:25 PM EST Tc from [facility] requesting DME: Rollator walker . documented in this encounter Plan of Treatment Upcoming Encounters Date Type Department Care Team (Late st Contact Info) Description 04/29/2025 10:00 AM EDT Office Visit [facility] MEDICINE 230 [place] [address] Name, MD Nitin [address] [place] [address] documented as of this encounter Visit Diagnoses Not on filedocumented in this encounter Additional Health Concerns Assessment Noted Time PHQ-9 Depression Total Score: 12 023 9:37 AM EDT documented as of this encounter Care Teams Ship Rigger Apprentice Relationship Specialty Start Date End Date Name, MD Nitin [address] [place] [address] PCP - General Family Medicine 08/26/17 [facility] 09/01/24 documented as of this encounter
[2025-02-14 00:36] LABS: IDNOW Serial# 6674DD1D; Strep A Nucleic Acid Negative (Negative)
[2025-02-14 00:59] LABS: Influenza A PCR NEGATIVE (Negative); Influenza B PCR NEGATIVE (Negative); Resp Syncy Virus RNA Qual PCR NEGATIVE (Negative); SARS COV2 PCR INHOUSE NEGATIVE (Negative)
[2025-02-14 01:38] VITALS: BP 138/76; PULSE 74; RESP 20; TEMP 36.9; O2SAT 96
[2025-02-14] MEDS: Azithromycin 500 MG TABLET PO (01:41)
[2025-02-14 01:44] VITALS: BP 138/76; PULSE 74; RESP 20; TEMP 36.9; O2SAT 96
== END 2025-02-14 01:53 | disposition home or self-care (01) ==
PROVIDERS: Emergency Provider Internal Medicine
DX: J02.9 Acute pharyngitis, unspecified (principal); R06.02 Shortness of breath; Z03.818 Encounter for observation for suspected exposure to other biological agents ruled out; Z79.899 Other long term (current) drug therapy
CPT/HCPCS: 0241U; 71045; 87651; 99283; 99284

== ENCOUNTER → 2025-02-14 00:50 | Outpatient (BNV) | payer OTHER, SELFPAY | PROVIDERS: Emergency Provider Internal Medicine; Visit Provider Radiology Neuroradiology | DX: R06.02 Shortness of breath (principal) | CPT/HCPCS: 71045 ==

== ENCOUNTER 2025-02-15 02:53 | Emergency (ER) | payer OTHER, SELFPAY ==
[2025-02-15 02:58] VITALS: BP 150/90; BP 159/76; PULSE 81; RESP 18; TEMP 37.2; O2SAT 96; O2SAT 98; BMI 26.1
[2025-02-15 03:04] VITALS: BP 159/76; PULSE 81; RESP 18; TEMP 37.2; O2SAT 96
--- OUTSIDE RECORDS SUMMARY | 2025-02-15 03:13 | XMS_ITS | Clinical Summary ---
Author Organization [facility] Address [address] [place] [address] Phone Care Team Providers Care Boring Inspector Name Role Phone Physician, No Pcp Primary [...] age to complete this topic Meningococcal B Vaccine Aged Out No l onger eligible based on patient's age to complete [...] LAB CHEMISTRY METHOD 09/22/2024 3:15 AM EST [facility] Potassium 4.6 3.5 - 5.5 mmol/L LAB CHEMISTRY METHOD 09/22/2024 3:15 AM [facility] Chloride 98 96 - 110 mmol/L LAB CHEMISTRY METHOD 09/22/2024 3:15 AM [facility] CO2 28 21 - 32 mmol/L LAB CHEMISTRY METHOD 09/22/2024 3:15 AM [facility] Anion Gap 6 3 - 11 LAB CHEMISTRY METHOD 09/22/2024 3:15 AM [facility] Glucose 119(H) 70 - 100 mg/dL LAB CHEMISTRY METHOD 09/22/2024 3:15 AM [facility] BUN 25 5 - 25 mg/dL LAB CHEMISTRY METHOD 09/22/2024 3:15 AM [facility] Creatinine 1.18(H) 0.50 - 1.10 mg/dL LAB CHEMISTRY METHOD 09/22/2024 3:15 AM [facility] eGFR 47(L) >=60 mL/min/1. 73m2 LAB CHEMISTRY METHOD 09/22/2024 3:15 AM [facility] Comment:Calculation based on the??Chronic Kidney Disease Epidemiology Collaboration (CKD-EPI) equation refit??without adjustment for race. BUN/Creatinine Ratio 21.2 LAB CHEMISTRY METHOD 09/22/2024 3:15 AM [facility] Calcium 9.3 8.5 - 10.5 mg/dL LAB CHEMISTRY METHOD 09/22/2024 3:15 AM [facility] AST (SGOT) 37 10 - 42 unit/L LAB CHEMISTRY METHOD 09/22/2024 3:15 AM [facility] ALT (SGPT) 25 10 - 60 unit/L LAB CHEMISTRY METHOD 09/22/2024 3:15 AM [facility] Alkaline Phosphatase 77 42 - 121 unit/L LAB CHEMISTRY METHOD 09/22/2024 3:15 AM [facility] Total Protein 8.0 6.0 - 8.0 g/dL LAB CHEMISTRY METHOD 09/22/2024 3:15 AM EST [facility] Albumin 4.2 3.2 - 5.0 g/dL LAB CHEMISTRY METHOD 09/22/2024 3:15 AM EST [facility] Total Bilirubin 0.4 0.0 - 1.4 mg/dL LAB CHEMISTRY METHOD 09/22/2024 3:15 AM EST [facility] Blood Venous blood specimen / Unknown Venipuncture / Unknown 09/22/2024 2:28 AM EST 09/22/2024 2:31 AM EST Paul RUIZ LAB BLOOD ORDERABLES Final Resul t [facility] [address] [place] [address], from Last 3 Months or Most Recently Relevant to Health Maintenance Insurance [facility] MEDICARE Member Subscriber Plan / Payer (Ef fective 2021-Present) Name:MaciejNoreen Relation to Subscriber:Self Name:Wing Noreen Payer ID:[id number] Group ID:[id number] Type:Not on file Address: [facility] [address] [address] Care Teams Boring Inspector Relationship Specialty Start Date End Date Physician, No Pcp PCP - General 09/22/24
--- OUTSIDE RECORDS SUMMARY | 2025-02-15 03:13 | XMS_ITS | Data Portability ---
Author Organization [facility] [place] Address [address] [place] [id number] Care Team Providers Care Customer Solutions Representative Name Role Phone HIM [facility] [...] Last Updated DateTime 18 /min 74 /min 52617.9 28 g 98 % 98 % 100 [degF] 130 mm[Hg] 66 mm[Hg] Not Available [employer] 15:33:18 Social History None recorded. Functional Status None recorded. Mental Status None recorded. Family History Nothing Reported. Medical History No medical history recorded. Gynecological HistoryNo gynecological history recorded. 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 She called today because she insists on having the catheter removed. It was removed by the event staff with the understand ing that if she can't void, she will need to go the the ER. The patient agreed with this plan. [id number] Rohit Benton MD Main - [address] [phone] 02/06/2024 15:33:16 02/09/2024 18:20:42 Chronic retention of urine [id number] R33.8 Has bunn catheter which was recently [...] Pinzon Member ID Guarantor Name 01/31/2024 1 [facility] - DOS ON OR AFTER 2023 - DUAL ELIGIBLE - [employer] OPTIONS AND ONE CARE (MEDICARE REPLACEMENT/ADV ANTAGE - HMO) Noreen Wing [id number] Noreen Wing 02/06/2024 1 [facility] - DOS ON OR AFTER 2023 - DUAL ELIGIBLE - [employer] OPTIONS AND ONE CARE (MEDICARE REPLACEMENT/ADV ANTAGE - HMO) Noreen Wing [id number] Noreen Wing Notes Date Note Type Note Provider Name and Address Organization Details Recorded Time 01/31/2024 text/html [facility] Nurse Triage Notes (Joana Dominique): Reason For Request: Bunn catheter malfunction/painful Chief Complaints: UTI/Pyelonephritis, Equipment-Related Allergies: No Known Comments: Paraguayan speaking member who denies any PMH, denies [...] Epifanio Mcintyre MD [address], [place], [phone], [facility] 01/31/2024 19:05:57 02/06/2024 text/html HPI: Member asked for HV tomorrow after 10 AM if possible. Treated at the [facility] ER today, for F/u leaking, stated is [...] son Jame Wing. Member is 78 y/o [place] speaking female who [facility] with her son. Member has [...] sees her BH counselor weekly and Prescriber COMPUTER SECURITY SPECIALIST [place] monthly if needed or every 2-3 months, .................... .................... .................... .................... .................... .................... .................... . [facility] Nurse Triage Notes (Zafar Irving): Comments: Reviewed HPI .................... .................... .................... .................... .................... .................... .................... . Photo Engraver Note From [place]: Pt sts doesn? [...] Vitals stable. Urine clear and light yellow. [facility] contacted and advised pt to rest and advised to make sure she goes to appt Friday. Pt son was used as pay clerk. Pt education on signs indicating the ER. Photo Engraver Allergies: Clindamycin .................... .................... .................... .................... .................... .................... .................... . Disposition: Fulfilled Rohit Benton MD [address] [facility],[address], [place], [address], [facility] 02/06/2024 17:58:19 OBGyn Episode No OBEpisode recorded.
--- OUTSIDE RECORDS SUMMARY | 2025-02-15 03:13 | XMS_ITS | Clinical Summary ---
Author Organization [facility] Facility Address [address] [address] Care Team Providers Care Duralumin Mechanic Name Role Phone Name, Nitin PIKE Primary Care Provider [phone] Allergies Active Allergy Reactions Criticality Noted Date [...] Due Date Last Done Comments Influenza Vaccine (Season Ended) 2025 07/24/2023, 07/26/2022, 07/28/2021, Additional history exists Pneumococcal Vaccine: 65+ Years Completed 07/21/2019, 06/08/2015, 09/08/2012 Hepatitis B Vaccine Aged Out No longe r eligible based on patient's age to complete this topic Insurance [facility] M[facility] ([id number]) [place] [id number] [facility] M[facility] ([id number]) Care Teams Duralumin Mechanic Relationship Specialty Start Date End Date Name, MD Nitin [address] [place] [id number] PCP - General Internal Medicine 10/15/22
--- NOTE | 2025-02-15 03:53 | PC.NURSE ---
pt biba from home, a&ox4, respirations even and unlabored. pt reports waking up with anxiety and hypertension. pt reports she does not get her medications until evening so she has not taken them. motor vehicle parts interpreter at bedside.
--- NOTE | 2025-02-15 04:19 | ED.GENADULT ---
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 Henriquez HPI narrative: 79-year-old female with PMH of HTN, anxiety, hyponatremia, SVT, chronic benzo use came in by ambulance after checked her blood pressure which was high at home called 911 came in, patient stated that she did not receive her benzo prescription yesterday and feeling very anxious. No CP, no SOB. Related Data Home Medications ?Medication ?Instructions ?Recorded ?Confirmed mirtazapine 45 mg tablet 45 mg PO BEDTIME 08/09/20 09/29/24 omeprazole 20 mg tablet,delayed 20 mg PO DAILY@0630 08/09/20 09/29/24 release aspirin 81 mg tablet,delayed 81 mg PO QAM 01/28/24 09/29/24 release bisacodyl 5 mg tablet,delayed 5 mg PO DAILY PRN constipation 01/28/24 09/29/24 release diphenhydramine HCl 25 mg tablet 25 mg PO BEDTIME PRN itch 01/28/24 09/29/24 (Lou-Dryl) ferrous sulfate 325 mg (65 mg 325 mg PO DAILY 01/28/24 09/29/24 iron) tablet (FeroSul) melatonin 10 mg tablet,extended 10 mg PO BEDTIME PRN Insomnia 01/28/24 09/29/24 release multivitamin 1 tab PO QAM 01/28/24 09/29/24 rosuvastatin 20 mg tablet 20 mg PO BEDTIME 01/28/24 09/29/24 trazodone 50 mg tablet 50 mg PO BEDTIME 01/28/24 09/29/24 amlodipine 10 mg tablet 10 mg PO DAILY 02/09/24 09/29/24 acetaminophen 500 mg tablet 500 mg PO Q8H PRN pain 08/09/24 09/29/24 ipratropium bromide 21 mcg (0.03 2 spray intranasal BID 08/09/24 09/29/24 %) nasal spray zolpidem 5 mg tablet 5 mg PO BEDTIME PRN Insomnia 08/09/24 09/29/24 cholecalciferol (vitamin D3) 25 25 mcg PO DAILY 08/20/24 09/29/24 mcg (1,000 unit) tablet meclizine 25 mg tablet 25 mg PO DAILY PRN 09/29/24 09/29/24 Previous Rx's ?Medication ?Instructions ?Recorded metoprolol succinate 50 mg 50 mg PO DAILY #90 tabs 09/28/20 tablet,extended release 24 hr fluticasone propionate 50 2 spray intranasal DAILY #16 grams 09/16/23 mcg/actuation nasal spray,suspension (Flonase Allergy Relief) ondansetron 4 mg disintegrating 4 mg PO Q6H PRN nausea and 04/28/24 tablet vomiting #10 tabs hydroxyzine HCl 25 mg tablet 25 mg PO TID PRN anxiety #6 tabs 08/07/24 clonazepam 0.5 mg tablet 0.5 mg PO TID #180 tabs 08/10/24 gabapentin 100 mg capsule 100 mg PO TID #180 caps 08/10/24 hydroxyzine HCl 25 mg tablet 25 mg PO TID PRN anxiety #20 tabs 09/09/24 miconazole nitrate 2 % vaginal 1 appful vaginal BEDTIME 7 days 10/09/24 cream (Monistat 7) #45 grams nitrofurantoin 100 mg PO Q12H 3 days #6 caps 10/09/24 monohydrate/macrocrystals 100 mg capsule (Macrobid) miconazole nitrate 2 % topical 1 appl topical BID #28 grams 01/01/25 cream valsartan 160 mg tablet 160 mg PO DAILY #90 tabs 01/20/25 ofloxacin 0.3 % ear drops 10 drp otic (ears) DAILY 7 days #5 02/01/25 mL docusate sodium 100 mg capsule 200 mg (2 x 100 mg) PO BID #30 caps 02/07/25 (Col-Rite) polyethylene glycol 3350 17 17 g PO Q8H #238 grams 02/07/25 gram/dose oral powder (ClearLax) white petrolatum 41 % topical 1 appl topical BID PRN irritated 02/07/25 ointment (Advanced Healing skin #50 grams (Petrolatum)) azithromycin 250 mg tablet 250 mg PO DAILY 4 days #4 tabs 02/14/25 (Zithromax) Allergies Allergy/AdvReac Type Severity Reaction Status Date / Time penicillin G [Penicillin G] Allergy Severe ITCHY/RASH Verified 02/15/25 03:09 Sulfa (Sulfonamide Allergy Severe ITCHY,RASH, Verified 02/15/25 03:09 Antibiotics) rash [Sulfa (Sulfonamides)] trimethoprim [From Bactrim] Allergy Severe HIVES Verified 02/15/25 03:09 Penicillins Allergy Intermediate Hives Verified 02/15/25 03:09 sulfamethoxazole Allergy Mild Hives Verified 02/15/25 03:09 [From Bactrim] Review of Systems Review of Systems: Yes all other systems are reviewed and are negative REPLACED BY [facility] Past Medical History 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) Unable to assess alcohol history related to: Unknown Alcohol intake: never Patient Tobacco Use Status: Never used Tobacco Advance Directives: Yes Advance Directives Information Provided: Yes Advance Directives on File: No Advance Directives Date on File: 01/28/24 Do you have a plan to hurt others: No Plan service: No Physical Exam ED Vital Signs: Vital Signs - 24 hr 02/15/25 02:58 02/15/25 03:04 Temperature 99.0 F 99 F Pulse Rate 81 81 Respiratory Rate 18 18 Blood Pressure 159/76 H 159/76 H Pulse Oximetry 96 96 Oxygen Delivery Method Room Air Room Air BMI result Body Mass Index 26.1 Vital signs have been reviewed and appear to be correct. Blood pressure elevated. Heart rate normal. Respiratory rate normal. Temperature normal. Oxygen saturation normal. Appearance: Alert. Oriented X3. No acute distress. Head: Normal external exam. Normocephalic. Atraumatic. No Gomes signs noted. No raccoon eyes noted Eyes: PERRLA. EOMI. Conjunctiva and sclera normal. Eyelids normal. ENT: TM's Normal. Pharynx normal. Uvula midline. Moist mucous membranes. No trismus noted. No drooling noted. No muffled voice noted. Neck: Normal inspection. Neck supple. FROM. No adenopathy. Thyroid Normal. No meningeal signs. No neck mass noted. CVS: Normal heart rate and rhythm. Heart sound normal. No murmurs noted. Pulses normal throughout. Respiratory: No respiratory distress. Painless inspiration. Breath sounds normal. No wheezes/rales/rhonchi noted. Chest nontender. No accessory muscle usage noted or decreased air movement noted. Abdomen: Soft and nontender. Bowel sounds normal in all 4 quadrants. No distention noted. No organomegaly noted. No visible injury noted. Back: No CVA tenderness. Full range of motion noted. Skin: Skin warm and dry. Normal skin color. Normal skin turgor. No rashes/lesions/lacerations noted. Extremities: No lower extremity edema. Extremities exhibit normal range of motion. Extremities nontender. Neuro: Oriented X 3. Cranial nerve exam: II-XII are grossly intact No motor deficit. No sensory deficit. Reflexes normal. Course Reevaluation(s) Reevaluation #1: 79-year-old female with known history of anxiety presented after felt anxious which she typically called ambulance and come to the ED. patient is well known to me and most of the ED staff and appeared to be at normal self otherwise. Time: 07:00 Medical Decision Making Differential Diagnosis Differential Diagnoses: The differential diagnosis associated with the presentation includes (Anxiety, hypertension, insomnia.) Admission/Observation Consideration of admission/observation: Escalation of care including admission/observation considered Discharge Plan Discharge Clinical Impression: Generalized anxiety disorder with panic attacks Patient Disposition: Home, Self-Care Instructions: Anxiety (ED) Prescriptions: No Action metoprolol succinate 50 mg tablet extended release 24 hr 50 mg PO DAILY Qty: 90 2RF valsartan 160 mg tablet 160 mg PO DAILY Qty: 90 1RF mirtazapine 45 mg Tablet 45 mg PO BEDTIME omeprazole 20 mg Tablet,Delayed Release (Dr/Ec) 20 mg PO DAILY@0630 fluticasone propionate [Flonase Allergy Relief] 50 mcg/actuation spray,suspension 2 spray intranasal DAILY Qty: 16 0RF Rx Instructions: administer into each nostril hydroxyzine HCl 25 mg tablet 25 mg PO TID PRN (Reason: anxiety) Qty: 6 0RF hydroxyzine HCl 25 mg tablet 25 mg PO TID PRN (Reason: anxiety) Qty: 20 0RF miconazole nitrate 2 % cream 1 appl topical BID Qty: 28 0RF azithromycin [Zithromax] 250 mg tablet 250 mg PO DAILY 4 Days Qty: 4 0RF Rx Instructions: start on day 2 of therapy trazodone 50 mg tablet 50 mg PO BEDTIME ferrous sulfate [FeroSul] 325 mg (65 mg iron) tablet 325 mg PO DAILY diphenhydramine HCl [Lou-Dryl] 25 mg tablet 25 mg PO BEDTIME PRN (Reason: itch) bisacodyl 5 mg tablet,delayed release (DR/EC) 5 mg PO DAILY PRN (Reason: constipation) rosuvastatin 20 mg tablet 20 mg PO BEDTIME aspirin 81 mg tablet,delayed release (DR/EC) 81 mg PO QAM multivitamin Tablet 1 tab PO QAM melatonin 10 mg tablet extended release 10 mg PO BEDTIME PRN (Reason: Insomnia) cholecalciferol (vitamin D3) 25 mcg (1,000 unit) tablet 25 mcg PO DAILY ondansetron 4 mg tablet,disintegrating 4 mg PO Q6H PRN (Reason: nausea and vomiting) Qty: 10 0RF acetaminophen 500 mg tablet 500 mg PO Q8H PRN (Reason: pain) zolpidem 5 mg tablet 5 mg PO BEDTIME PRN (Reason: Insomnia) ipratropium bromide 21 mcg (0.03 %) spray,non-aerosol 2 spray intranasal BID clonazepam 0.5 mg Tablet 0.5 mg PO TID Qty: 180 0RF gabapentin 100 mg Capsule 100 mg PO TID Qty: 180 0RF nitrofurantoin monohyd/m-cryst [Macrobid] 100 mg capsule 100 mg PO Q12H 3 Days Qty: 6 0RF Rx Instructions: must administer with a meal/food miconazole nitrate [Monistat 7] 2 % cream 1 appful vaginal BEDTIME 7 Days Qty: 45 0RF ofloxacin 0.3 % drops 10 drp otic (ears) DAILY 7 Days Qty: 5 0RF docusate sodium [Col-Rite] 100 mg capsule 200 mg PO BID Qty: 30 0RF polyethylene glycol 3350 [ClearLax] 17 gram/dose powder 17 g PO Q8H Qty: 238 0RF Advanced Healing (Petrolatum) 41 % ointment 1 appl topical BID PRN (Reason: irritated skin) Qty: 50 0RF amlodipine 10 mg tablet 10 mg PO DAILY meclizine 25 mg tablet 25 mg PO DAILY PRN Print Language: Mongolian
[2025-02-15 05:08] VITALS: BP 148/76; PULSE 77; RESP 16; TEMP 36.8; O2SAT 96
[2025-02-15] MEDS: hydrOXYzine HCL 25 MG TABLET PO (05:13)
[2025-02-15 05:22] VITALS: BP 148/76; PULSE 77; RESP 16; TEMP 36.8; O2SAT 96
== END 2025-02-15 05:08 | disposition home or self-care (01) ==
PROVIDERS: Emergency Provider Emergency Medicine
DX: F41.1 Generalized anxiety disorder (principal); F41.0 Panic disorder [episodic paroxysmal anxiety]; I10 Essential (primary) hypertension; Z79.82 Long term (current) use of aspirin; Z79.899 Other long term (current) drug therapy
CPT/HCPCS: 99283; 99284

== ENCOUNTER 2025-02-20 07:20 | Emergency (ER) | payer OTHER, SELFPAY ==
[2025-02-20 07:25] VITALS: BP 128/70; PULSE 109; O2SAT 100
[2025-02-20 07:26] VITALS: BP 141/86; PULSE 105; RESP 18; TEMP 37.3; O2SAT 97; BMI 29.5
--- NOTE | 2025-02-20 07:30 | ECG_ITS ---
Test Reason : PALPITATIONS Blood Pressure : */* mmHG Vent. Rate : 79 BPM Atrial Rate : 79 BPM P-R Int : 190 ms QRS Dur : 98 ms QT Int : 364 ms P-R-T Axes : 37 -28 28 degrees QTcB Int : 417 ms Normal sinus rhythm with sinus arrhythmia Moderate voltage criteria for LVH, may be normal variant ( R in aVL , Maycol product ) Borderline ECG When compared with ECG of 31-Jan-2025 22:37, QRS axis Shifted right T wave inversion no longer evident in Inferior leads Referred By: Generic ED Physician Electronically Signed By: KATRINA PARSONS MD
--- NOTE | 2025-02-20 07:59 | ED.GENADULT ---
HPI - General Adult General Chief complaint: Arrhythmia/Palpitations Stated complaint: ANXIETY ATTACK Time Seen by Provider: 02/20/25 07:59 History of Present Illness ED Provider: Ashleigh Related Data Home Medications ?Medication ?Instructions ?Recorded ?Confirmed mirtazapine 45 mg tablet 45 mg PO BEDTIME 08/09/20 09/29/24 omeprazole 20 mg tablet,delayed 20 mg PO DAILY@0630 08/09/20 09/29/24 release aspirin 81 mg tablet,delayed 81 mg PO QAM 01/28/24 09/29/24 release bisacodyl 5 mg tablet,delayed 5 mg PO DAILY PRN constipation 01/28/24 09/29/24 release diphenhydramine HCl 25 mg tablet 25 mg PO BEDTIME PRN itch 01/28/24 09/29/24 (Lou-Dryl) ferrous sulfate 325 mg (65 mg 325 mg PO DAILY 01/28/24 09/29/24 iron) tablet (FeroSul) melatonin 10 mg tablet,extended 10 mg PO BEDTIME PRN Insomnia 01/28/24 09/29/24 release multivitamin 1 tab PO QAM 01/28/24 09/29/24 rosuvastatin 20 mg tablet 20 mg PO BEDTIME 01/28/24 09/29/24 trazodone 50 mg tablet 50 mg PO BEDTIME 01/28/24 09/29/24 amlodipine 10 mg tablet 10 mg PO DAILY 02/09/24 09/29/24 acetaminophen 500 mg tablet 500 mg PO Q8H PRN pain 08/09/24 09/29/24 ipratropium bromide 21 mcg (0.03 2 spray intranasal BID 08/09/24 09/29/24 %) nasal spray zolpidem 5 mg tablet 5 mg PO BEDTIME PRN Insomnia 08/09/24 09/29/24 cholecalciferol (vitamin D3) 25 25 mcg PO DAILY 08/20/24 09/29/24 mcg (1,000 unit) tablet meclizine 25 mg tablet 25 mg PO DAILY PRN 09/29/24 09/29/24 Previous Rx's ?Medication ?Instructions ?Recorded metoprolol succinate 50 mg 50 mg PO DAILY #90 tabs 09/28/20 tablet,extended release 24 hr fluticasone propionate 50 2 spray intranasal DAILY #16 grams 09/16/23 mcg/actuation nasal spray,suspension (Flonase Allergy Relief) ondansetron 4 mg disintegrating 4 mg PO Q6H PRN nausea and 04/28/24 tablet vomiting #10 tabs hydroxyzine HCl 25 mg tablet 25 mg PO TID PRN anxiety #6 tabs 08/07/24 clonazepam 0.5 mg tablet 0.5 mg PO TID #180 tabs 08/10/24 gabapentin 100 mg capsule 100 mg PO TID #180 caps 08/10/24 hydroxyzine HCl 25 mg tablet 25 mg PO TID PRN anxiety #20 tabs 09/09/24 miconazole nitrate 2 % vaginal 1 appful vaginal BEDTIME 7 days 10/09/24 cream (Monistat 7) #45 grams nitrofurantoin 100 mg PO Q12H 3 days #6 caps 10/09/24 monohydrate/macrocrystals 100 mg capsule (Macrobid) miconazole nitrate 2 % topical 1 appl topical BID #28 grams 01/01/25 cream valsartan 160 mg tablet 160 mg PO DAILY #90 tabs 01/20/25 ofloxacin 0.3 % ear drops 10 drp otic (ears) DAILY 7 days #5 02/01/25 mL docusate sodium 100 mg capsule 200 mg (2 x 100 mg) PO BID #30 caps 02/07/25 (Col-Rite) polyethylene glycol 3350 17 17 g PO Q8H #238 grams 02/07/25 gram/dose oral powder (ClearLax) white petrolatum 41 % topical 1 appl topical BID PRN irritated 02/07/25 ointment (Advanced Healing skin #50 grams (Petrolatum)) azithromycin 250 mg tablet 250 mg PO DAILY 4 days #4 tabs 02/14/25 (Zithromax) Allergies Allergy/AdvReac Type Severity Reaction Status Date / Time penicillin G [Penicillin G] Allergy Severe ITCHY/RASH Verified 02/20/25 07:31 Sulfa (Sulfonamide Allergy Severe ITCHY,RASH, Verified 02/20/25 07:31 Antibiotics) rash [Sulfa (Sulfonamides)] trimethoprim [From Bactrim] Allergy Severe HIVES Verified 02/20/25 07:31 Penicillins Allergy Intermediate Hives Verified 02/20/25 07:31 sulfamethoxazole Allergy Mild Hives Verified 02/20/25 07:31 [From Bactrim] Review of Systems Review of Systems: Yes all other systems are reviewed and are negative [facility] Past Medical History 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) Unable to assess alcohol history related to: Unknown Alcohol intake: never Patient Tobacco Use Status: Never used Tobacco Smoked in Last 30 Days: No Use of substances other than those prescribed or required for medical reasons: No Advance Directives: Yes Advance Directives on File: Yes Advance Directives Date on File: 01/28/24 Do you have a plan to hurt others: No Plan service: No Physical Exam ED Vital Signs: Vital Signs - 24 hr 02/20/25 07:26 02/20/25 08:16 02/20/25 08:17 Temperature 99.2 F 98.7 F 98.7 F Pulse Rate 105 H 73 73 Respiratory Rate 18 16 16 Blood Pressure 141/86 H 125/70 125/70 Pulse Oximetry 97 98 98 Oxygen Delivery Method Room Air Room Air Room Air BMI result Body Mass Index 29.5 Const General: cooperative, healthy appearing, comfortable and no acute distress Orientation/consciousness: patient oriented x3 HENMT Head: Yes normal to inspection Throat: Yes posterior oropharynx normal Eyes General: appearance normal, both eyes and all related structures Neck Neck: Yes no JVD Resp Effort & Inspection: normal respiratory effort Auscultation: clear to auscultation bilaterally Cardio Rate: regular rate Rhythm: regular rhythm Heart sounds: S1 normal heart sound present and S2 normal heart sound present GI Other: Soft and nontender Skin General skin exam: no rashes or lesions noted Neuro General: patient oriented x3, gait normal, moves all extremities, no focal motor deficits and CN's II-XI intact bilaterally Extrem General: Yes no pedal edema and Yes no calf tenderness Medical Decision Making Medical Decision Making MDM Narrative: The patient is a 79-year-old female with frequent ER visits related to anxiety. She describes having some palpitations this morning. Her palpitations have resolved. Her EKG shows a sinus rhythm with a sinus arrhythmia. No concerning findings. No significant change from her previous EKG (I believe her most recent EKG had limb lead reversal, EKGs before that resemble today's). The patient was anxious to be discharged because she wanted to go to [facility]. She was discharged. Independent Interpretation I performed an independent interpretation of an: EKG Interpretation: EKG at 01/08/2007 shows normal sinus rhythm with a sinus arrhythmia. No definite acute ischemic changes. Discharge Plan Discharge Clinical Impression: Palpitations Patient Disposition: Home, Self-Care Additional Instructions: Your vital signs, your EKG, and your physical examination this morning are reassuring. I do not think any dangerous process is happening right now. Please continue all of your regular medications. Please follow up soon with your regular doctor. Return to the emergency room if worse. Prescriptions: No Action metoprolol succinate 50 mg tablet extended release 24 hr 50 mg PO DAILY Qty: 90 2RF valsartan 160 mg tablet 160 mg PO DAILY Qty: 90 1RF mirtazapine 45 mg Tablet 45 mg PO BEDTIME omeprazole 20 mg Tablet,Delayed Release (Dr/Ec) 20 mg PO DAILY@0630 fluticasone propionate [Flonase Allergy Relief] 50 mcg/actuation spray,suspension 2 spray intranasal DAILY Qty: 16 0RF Rx Instructions: administer into each nostril hydroxyzine HCl 25 mg tablet 25 mg PO TID PRN (Reason: anxiety) Qty: 6 0RF hydroxyzine HCl 25 mg tablet 25 mg PO TID PRN (Reason: anxiety) Qty: 20 0RF miconazole nitrate 2 % cream 1 appl topical BID Qty: 28 0RF azithromycin [Zithromax] 250 mg tablet 250 mg PO DAILY 4 Days Qty: 4 0RF Rx Instructions: start on day 2 of therapy trazodone 50 mg tablet 50 mg PO BEDTIME ferrous sulfate [FeroSul] 325 mg (65 mg iron) tablet 325 mg PO DAILY diphenhydramine HCl [Lou-Dryl] 25 mg tablet 25 mg PO BEDTIME PRN (Reason: itch) bisacodyl 5 mg tablet,delayed release (DR/EC) 5 mg PO DAILY PRN (Reason: constipation) rosuvastatin 20 mg tablet 20 mg PO BEDTIME aspirin 81 mg tablet,delayed release (DR/EC) 81 mg PO QAM multivitamin Tablet 1 tab PO QAM melatonin 10 mg tablet extended release 10 mg PO BEDTIME PRN (Reason: Insomnia) cholecalciferol (vitamin D3) 25 mcg (1,000 unit) tablet 25 mcg PO DAILY ondansetron 4 mg tablet,disintegrating 4 mg PO Q6H PRN (Reason: nausea and vomiting) Qty: 10 0RF acetaminophen 500 mg tablet 500 mg PO Q8H PRN (Reason: pain) zolpidem 5 mg tablet 5 mg PO BEDTIME PRN (Reason: Insomnia) ipratropium bromide 21 mcg (0.03 %) spray,non-aerosol 2 spray intranasal BID clonazepam 0.5 mg Tablet 0.5 mg PO TID Qty: 180 0RF gabapentin 100 mg Capsule 100 mg PO TID Qty: 180 0RF nitrofurantoin monohyd/m-cryst [Macrobid] 100 mg capsule 100 mg PO Q12H 3 Days Qty: 6 0RF Rx Instructions: must administer with a meal/food miconazole nitrate [Monistat 7] 2 % cream 1 appful vaginal BEDTIME 7 Days Qty: 45 0RF ofloxacin 0.3 % drops 10 drp otic (ears) DAILY 7 Days Qty: 5 0RF docusate sodium [Col-Rite] 100 mg capsule 200 mg PO BID Qty: 30 0RF polyethylene glycol 3350 [ClearLax] 17 gram/dose powder 17 g PO Q8H Qty: 238 0RF Advanced Healing (Petrolatum) 41 % ointment 1 appl topical BID PRN (Reason: irritated skin) Qty: 50 0RF amlodipine 10 mg tablet 10 mg PO DAILY meclizine 25 mg tablet 25 mg PO DAILY PRN Referrals: [facility] [Provider Group] Interventions: ED Discharge Assessment Last Done: 02/20/25 08:16 Discharge Date/Time: 02/20/25 08:18 Print Language: English
[2025-02-20 08:16] VITALS: BP 125/70; PULSE 73; RESP 16; TEMP 37.1; O2SAT 98
[2025-02-20 08:17] VITALS: BP 125/70; PULSE 73; RESP 16; TEMP 37.1; O2SAT 98
== END 2025-02-20 08:18 | disposition home or self-care (01) ==
PROVIDERS: Emergency Provider Emergency Medicine
DX: R00.2 Palpitations (principal); I10 Essential (primary) hypertension; Z79.899 Other long term (current) drug therapy
CPT/HCPCS: 93005; 99283; 99285

== ENCOUNTER → 2025-02-20 07:30 | Outpatient (BNV) | payer OTHER, SELFPAY | PROVIDERS: Emergency Provider Emergency Medicine; Visit Provider Internal Medicine Cardiovascular Disease | DX: R00.2 Palpitations (principal) | CPT/HCPCS: 93010 ==

== ENCOUNTER 2025-02-24 02:45 | Emergency (ER) | payer OTHER, SELFPAY ==
--- NOTE | ~2025-02-24 | XR_ITS ---
CLINICAL HISTORY: pain 1 view abdomen Comparison: CR - XR KUB - 02/07/25 00:42 EDT Findings: No pneumoperitoneum or pneumatosis. No abnormal calcifications. No acute fractures. Prominent gas-filled loops of large bowel. Grossly nonobstructed bowel-gas pattern. IMPRESSION: Nonobstructed bowel-gas pattern. This document has been electronically signed by: Juwan Handley MD, PHD on 02/24/2025 03:45:15
[2025-02-24 02:50] VITALS: BP 156/88; PULSE 108; O2SAT 97
[2025-02-24 02:55] VITALS: BP 144/81; PULSE 92; RESP 20; TEMP 37.1; O2SAT 97; BMI 34.3
--- NOTE | 2025-02-24 03:54 | ED.GENADULT ---
HPI - General Adult General Chief complaint: Abdominal Pain Stated complaint: CONSTIPATION Time Seen by Provider: 02/24/25 03:51 Source: patient Limitations: language barrier History of Present Illness ED Provider: Jeanne Shen PA-C HPI narrative: 78 y/o F with hx of HTN, anxiety, hyponatremia, SVT, benzo misuse , who is well known to our emergency department, being a high utilizer of resources, presents with constipation. Patient states she has been trying to have a bowel movement for 5 hours, she took Dulcolax. Associated flatus. Denies abdominal pain, nausea, vomiting. Related Data Home Medications ?Medication ?Instructions ?Recorded ?Confirmed mirtazapine 45 mg tablet 45 mg PO BEDTIME 08/09/20 09/29/24 omeprazole 20 mg tablet,delayed 20 mg PO DAILY@0630 08/09/20 09/29/24 release aspirin 81 mg tablet,delayed 81 mg PO QAM 01/28/24 09/29/24 release bisacodyl 5 mg tablet,delayed 5 mg PO DAILY PRN constipation 01/28/24 09/29/24 release diphenhydramine HCl 25 mg tablet 25 mg PO BEDTIME PRN itch 01/28/24 09/29/24 (Lou-Dryl) ferrous sulfate 325 mg (65 mg 325 mg PO DAILY 01/28/24 09/29/24 iron) tablet (FeroSul) melatonin 10 mg tablet,extended 10 mg PO BEDTIME PRN Insomnia 01/28/24 09/29/24 release multivitamin 1 tab PO QAM 01/28/24 09/29/24 rosuvastatin 20 mg tablet 20 mg PO BEDTIME 01/28/24 09/29/24 trazodone 50 mg tablet 50 mg PO BEDTIME 01/28/24 09/29/24 amlodipine 10 mg tablet 10 mg PO DAILY 02/09/24 09/29/24 acetaminophen 500 mg tablet 500 mg PO Q8H PRN pain 08/09/24 09/29/24 ipratropium bromide 21 mcg (0.03 2 spray intranasal BID 08/09/24 09/29/24 %) nasal spray zolpidem 5 mg tablet 5 mg PO BEDTIME PRN Insomnia 08/09/24 09/29/24 cholecalciferol (vitamin D3) 25 25 mcg PO DAILY 08/20/24 09/29/24 mcg (1,000 unit) tablet meclizine 25 mg tablet 25 mg PO DAILY PRN 09/29/24 09/29/24 Previous Rx's ?Medication ?Instructions ?Recorded metoprolol succinate 50 mg 50 mg PO DAILY #90 tabs 09/28/20 tablet,extended release 24 hr fluticasone propionate 50 2 spray intranasal DAILY #16 grams 09/16/23 mcg/actuation nasal spray,suspension (Flonase Allergy Relief) ondansetron 4 mg disintegrating 4 mg PO Q6H PRN nausea and 04/28/24 tablet vomiting #10 tabs hydroxyzine HCl 25 mg tablet 25 mg PO TID PRN anxiety #6 tabs 08/07/24 clonazepam 0.5 mg tablet 0.5 mg PO TID #180 tabs 08/10/24 gabapentin 100 mg capsule 100 mg PO TID #180 caps 08/10/24 hydroxyzine HCl 25 mg tablet 25 mg PO TID PRN anxiety #20 tabs 09/09/24 miconazole nitrate 2 % vaginal 1 appful vaginal BEDTIME 7 days 10/09/24 cream (Monistat 7) #45 grams nitrofurantoin 100 mg PO Q12H 3 days #6 caps 10/09/24 monohydrate/macrocrystals 100 mg capsule (Macrobid) miconazole nitrate 2 % topical 1 appl topical BID #28 grams 01/01/25 cream valsartan 160 mg tablet 160 mg PO DAILY #90 tabs 01/20/25 ofloxacin 0.3 % ear drops 10 drp otic (ears) DAILY 7 days #5 02/01/25 mL docusate sodium 100 mg capsule 200 mg (2 x 100 mg) PO BID #30 caps 02/07/25 (Col-Rite) polyethylene glycol 3350 17 17 g PO Q8H #238 grams 02/07/25 gram/dose oral powder (ClearLax) white petrolatum 41 % topical 1 appl topical BID PRN irritated 02/07/25 ointment (Advanced Healing skin #50 grams (Petrolatum)) azithromycin 250 mg tablet 250 mg PO DAILY 4 days #4 tabs 02/14/25 (Zithromax) docusate sodium 100 mg capsule 200 mg (2 x 100 mg) PO BID #20 caps 02/24/25 (Colace) polyethylene glycol 3350 17 17 g PO BID #119 grams 02/24/25 gram/dose oral powder (Miralax) Allergies Allergy/AdvReac Type Severity Reaction Status Date / Time penicillin G [Penicillin G] Allergy Severe ITCHY/RASH Verified 02/24/25 02:56 Sulfa (Sulfonamide Allergy Severe ITCHY,RASH, Verified 02/24/25 02:56 Antibiotics) rash [Sulfa (Sulfonamides)] trimethoprim [From Bactrim] Allergy Severe HIVES Verified 02/24/25 02:56 Penicillins Allergy Intermediate Hives Verified 02/24/25 02:56 sulfamethoxazole Allergy Mild Hives Verified 02/24/25 02:56 [From Bactrim] Review of Systems Review of Systems: Yes all other systems are reviewed and are negative Constitutional: Constitutional: Denies fatigue and Denies fever(s) Cardiovascular: Cardiovascular: Denies chest pain Respiratory: Respiratory: Denies cough Gastrointestinal: Gastrointestinal: Denies abdominal pain, Reports constipation, Denies nausea and Denies vomiting Endocrine: Endocrine: Denies fatigue PMFSH Past Medical History Attestation statement: The following information was validated with the patient. 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) Unable to assess alcohol history related to: Unknown Alcohol intake: never Patient Tobacco Use Status: Never used Tobacco Advance Directives: Yes Advance Directives on File: Yes Advance Directives Date on File: 01/28/24 service: No Physical Exam ED Vital Signs: Vital Signs - 24 hr 02/24/25 02:55 Temperature 98.7 F Pulse Rate 92 Respiratory Rate 20 Blood Pressure 144/81 H Pulse Oximetry 97 Oxygen Delivery Method Room Air BMI result Body Mass Index 34.3 Const Other: Alert Orientation/consciousness: patient oriented x3 Resp Effort & Inspection: normal respiratory effort Cardio Other: Normal peripheral perfusion GI Other: No stool in rectal vault Skin Other: Warm dry no rash Neuro General: patient oriented x3, gait normal, no focal motor deficits and CN's II-XI intact bilaterally Psych Other: Demanding, anxious Medical Decision Making Medical Decision Making MDM Narrative: 78 y/o F with hx of HTN, anxiety, hyponatremia, SVT, benzo misuse , who is well known to our emergency department, being a high utilizer of resources, presents with constipation. Patient states she has been trying to have a bowel movement for 5 hours, she took Dulcolax. Associated flatus. Denies abdominal pain, nausea, vomiting. Problem: Anxiety History: Per patient I have considered the following differential diagnoses: Constipation, bowel obstruction, anxiety, Plan: Obtain a KUB, there was some degree of stool burden, she has no obstructive symptoms, I performed a rectal exam, there was no fecal impaction. She is going to have to go home and take a bowel regimen. I have independently reviewed the following tests: KUB,Findings: No pneumoperitoneum or pneumatosis. No abnormal calcifications. No acute fractures. Prominent gas-filled loops of large bowel. Grossly nonobstructed bowel-gas pattern. IMPRESSION: Nonobstructed bowel-gas pattern. Discharge Plan Discharge Clinical Impression: Constipation Patient Disposition: Home, Self-Care Instructions: Constipation (ED) Additional Instructions: The x-ray shows that you are constipated. See home care instructions. Take the Colace as directed, take the MiraLax as directed. It may take a day, before you begin having bowel movements. You need to be patient. You need to follow up with your primary care provider. Prescriptions: New docusate sodium [Colace] 100 mg capsule 200 mg PO BID Qty: 20 0RF polyethylene glycol 3350 [Miralax] 17 gram/dose powder 17 g PO BID Qty: 119 0RF No Action metoprolol succinate 50 mg tablet extended release 24 hr 50 mg PO DAILY Qty: 90 2RF valsartan 160 mg tablet 160 mg PO DAILY Qty: 90 1RF mirtazapine 45 mg Tablet 45 mg PO BEDTIME omeprazole 20 mg Tablet,Delayed Release (Dr/Ec) 20 mg PO DAILY@0630 fluticasone propionate [Flonase Allergy Relief] 50 mcg/actuation spray,suspension 2 spray intranasal DAILY Qty: 16 0RF Rx Instructions: administer into each nostril hydroxyzine HCl 25 mg tablet 25 mg PO TID PRN (Reason: anxiety) Qty: 6 0RF hydroxyzine HCl 25 mg tablet 25 mg PO TID PRN (Reason: anxiety) Qty: 20 0RF miconazole nitrate 2 % cream 1 appl topical BID Qty: 28 0RF azithromycin [Zithromax] 250 mg tablet 250 mg PO DAILY 4 Days Qty: 4 0RF Rx Instructions: start on day 2 of therapy trazodone 50 mg tablet 50 mg PO BEDTIME ferrous sulfate [FeroSul] 325 mg (65 mg iron) tablet 325 mg PO DAILY diphenhydramine HCl [Lou-Dryl] 25 mg tablet 25 mg PO BEDTIME PRN (Reason: itch) bisacodyl 5 mg tablet,delayed release (DR/EC) 5 mg PO DAILY PRN (Reason: constipation) rosuvastatin 20 mg tablet 20 mg PO BEDTIME aspirin 81 mg tablet,delayed release (DR/EC) 81 mg PO QAM multivitamin Tablet 1 tab PO QAM melatonin 10 mg tablet extended release 10 mg PO BEDTIME PRN (Reason: Insomnia) cholecalciferol (vitamin D3) 25 mcg (1,000 unit) tablet 25 mcg PO DAILY ondansetron 4 mg tablet,disintegrating 4 mg PO Q6H PRN (Reason: nausea and vomiting) Qty: 10 0RF acetaminophen 500 mg tablet 500 mg PO Q8H PRN (Reason: pain) zolpidem 5 mg tablet 5 mg PO BEDTIME PRN (Reason: Insomnia) ipratropium bromide 21 mcg (0.03 %) spray,non-aerosol 2 spray intranasal BID clonazepam 0.5 mg Tablet 0.5 mg PO TID Qty: 180 0RF gabapentin 100 mg Capsule 100 mg PO TID Qty: 180 0RF nitrofurantoin monohyd/m-cryst [Macrobid] 100 mg capsule 100 mg PO Q12H 3 Days Qty: 6 0RF Rx Instructions: must administer with a meal/food miconazole nitrate [Monistat 7] 2 % cream 1 appful vaginal BEDTIME 7 Days Qty: 45 0RF ofloxacin 0.3 % drops 10 drp otic (ears) DAILY 7 Days Qty: 5 0RF docusate sodium [Col-Rite] 100 mg capsule 200 mg PO BID Qty: 30 0RF polyethylene glycol 3350 [ClearLax] 17 gram/dose powder 17 g PO Q8H Qty: 238 0RF Advanced Healing (Petrolatum) 41 % ointment 1 appl topical BID PRN (Reason: irritated skin) Qty: 50 0RF amlodipine 10 mg tablet 10 mg PO DAILY meclizine 25 mg tablet 25 mg PO DAILY PRN Print Language: Choose Not To Answer
[2025-02-24] MEDS: Docusate Sodium 100 MG CAPSULE 200 MG PO (04:08)
[2025-02-24] MEDS: polyethylene glycoL 3350 17 GM POWD.PACK PO (04:08)
[2025-02-24] MEDS: Simethicone 80 MG TAB.CHEW 160 MG PO (04:08)
[2025-02-24 04:10] VITALS: BP 136/86; PULSE 105; RESP 20; TEMP 36.9; O2SAT 97
[2025-02-24 04:15] VITALS: BP 136/86; PULSE 105; RESP 20; TEMP 36.9; O2SAT 97
== END 2025-02-24 04:15 | disposition home or self-care (01) ==
PROVIDERS: Emergency Provider Emergency Medicine
DX: K59.00 Constipation, unspecified (principal); I10 Essential (primary) hypertension
CPT/HCPCS: 74018; 99283

== ENCOUNTER → 2025-02-24 02:56 | Outpatient (BNV) | payer OTHER, SELFPAY | PROVIDERS: Visit Provider General Practice | DX: R14.0 Abdominal distension (gaseous) (principal) | CPT/HCPCS: 74018 ==

== ENCOUNTER 2025-02-28 04:50 | Emergency (ER) | payer OTHER, SELFPAY ==
[2025-02-28 04:58] VITALS: BP 172/91; BP 187/81; PULSE 82; PULSE 90; RESP 22; TEMP 36.8; O2SAT 100; O2SAT 98; BMI 27.7
[2025-02-28 05:18] VITALS: BP 148/87; PULSE 81; RESP 20; TEMP 36.8; O2SAT 98
--- NOTE | 2025-02-28 05:24 | ED_ITS ---
HPI - General Adult General Chief complaint: General Medical Stated complaint: SOB Time Seen by Provider: 02/28/25 05:22 Source: patient Mode of arrival: ambulatory Limitations: no limitations History of Present Illness ED Provider: HPI narrative: Patient's history of anxiety with frequent ED visits comes here for been feeling in his anxious and short of breath saturating 98% at room air no chest pain asking for anxiety medication Related Data Home Medications ?Medication ?Instructions ?Recorded ?Confirmed mirtazapine 45 mg tablet 45 mg PO BEDTIME 08/09/20 09/29/24 omeprazole 20 mg tablet,delayed 20 mg PO DAILY@0630 08/09/20 09/29/24 release aspirin 81 mg tablet,delayed 81 mg PO QAM 01/28/24 09/29/24 release bisacodyl 5 mg tablet,delayed 5 mg PO DAILY PRN constipation 01/28/24 09/29/24 release diphenhydramine HCl 25 mg tablet 25 mg PO BEDTIME PRN itch 01/28/24 09/29/24 (Lou-Dryl) ferrous sulfate 325 mg (65 mg 325 mg PO DAILY 01/28/24 09/29/24 iron) tablet (FeroSul) melatonin 10 mg tablet,extended 10 mg PO BEDTIME PRN Insomnia 01/28/24 09/29/24 release multivitamin 1 tab PO QAM 01/28/24 09/29/24 rosuvastatin 20 mg tablet 20 mg PO BEDTIME 01/28/24 09/29/24 trazodone 50 mg tablet 50 mg PO BEDTIME 01/28/24 09/29/24 amlodipine 10 mg tablet 10 mg PO DAILY 02/09/24 09/29/24 acetaminophen 500 mg tablet 500 mg PO Q8H PRN pain 08/09/24 09/29/24 ipratropium bromide 21 mcg (0.03 2 spray intranasal BID 08/09/24 09/29/24 %) nasal spray zolpidem 5 mg tablet 5 mg PO BEDTIME PRN Insomnia 08/09/24 09/29/24 cholecalciferol (vitamin D3) 25 25 mcg PO DAILY 08/20/24 09/29/24 mcg (1,000 unit) tablet meclizine 25 mg tablet 25 mg PO DAILY PRN 09/29/24 09/29/24 Previous Rx's ?Medication ?Instructions ?Recorded metoprolol succinate 50 mg 50 mg PO DAILY #90 tabs 09/28/20 tablet,extended release 24 hr fluticasone propionate 50 2 spray intranasal DAILY #16 grams 09/16/23 mcg/actuation nasal spray,suspension (Flonase Allergy Relief) ondansetron 4 mg disintegrating 4 mg PO Q6H PRN nausea and 04/28/24 tablet vomiting #10 tabs hydroxyzine HCl 25 mg tablet 25 mg PO TID PRN anxiety #6 tabs 08/07/24 clonazepam 0.5 mg tablet 0.5 mg PO TID #180 tabs 08/10/24 gabapentin 100 mg capsule 100 mg PO TID #180 caps 08/10/24 hydroxyzine HCl 25 mg tablet 25 mg PO TID PRN anxiety #20 tabs 09/09/24 miconazole nitrate 2 % vaginal 1 appful vaginal BEDTIME 7 days 10/09/24 cream (Monistat 7) #45 grams nitrofurantoin 100 mg PO Q12H 3 days #6 caps 10/09/24 monohydrate/macrocrystals 100 mg capsule (Macrobid) miconazole nitrate 2 % topical 1 appl topical BID #28 grams 01/01/25 cream valsartan 160 mg tablet 160 mg PO DAILY #90 tabs 01/20/25 ofloxacin 0.3 % ear drops 10 drp otic (ears) DAILY 7 days #5 02/01/25 mL docusate sodium 100 mg capsule 200 mg (2 x 100 mg) PO BID #30 caps 02/07/25 (Col-Rite) polyethylene glycol 3350 17 17 g PO Q8H #238 grams 02/07/25 gram/dose oral powder (ClearLax) white petrolatum 41 % topical 1 appl topical BID PRN irritated 02/07/25 ointment (Advanced Healing skin #50 grams (Petrolatum)) azithromycin 250 mg tablet 250 mg PO DAILY 4 days #4 tabs 02/14/25 (Zithromax) docusate sodium 100 mg capsule 200 mg (2 x 100 mg) PO BID #20 caps 02/24/25 (Colace) polyethylene glycol 3350 17 17 g PO BID #119 grams 02/24/25 gram/dose oral powder (Miralax) simethicone 180 mg capsule 180 mg PO BID PRN abdominal 03/03/25 distention #14 caps Allergies Allergy/AdvReac Type Severity Reaction Status Date / Time penicillin G [Penicillin G] Allergy Severe ITCHY/RASH Verified 03/03/25 00:52 Sulfa (Sulfonamide Allergy Severe ITCHY,RASH, Verified 03/03/25 00:52 Antibiotics) rash [Sulfa (Sulfonamides)] trimethoprim [From Bactrim] Allergy Severe HIVES Verified 03/03/25 00:52 Penicillins Allergy Intermediate Hives Verified 03/03/25 00:52 sulfamethoxazole Allergy Mild Hives Verified 03/03/25 00:52 [From Bactrim] Review of Systems Review of Systems: Yes all other systems are reviewed and are negative [facility] Past Medical History 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) Unable to assess alcohol history related to: Unknown Alcohol intake: never Patient Tobacco Use Status: Never used Tobacco Smoked in Last 30 Days: No Use of substances other than those prescribed or required for medical reasons: No Advance Directives: Yes Advance Directives on File: Yes Advance Directives Date on File: 01/28/24 Do you have a plan to hurt others: No Plan service: No Physical Exam ED Vital Signs: Vital Signs - 24 hr 02/28/25 04:58 02/28/25 05:18 Temperature 98.2 F 98.3 F Pulse Rate 82 81 Respiratory Rate 22 H 20 Blood Pressure 172/91 H 148/87 H Pulse Oximetry 98 98 Oxygen Delivery Method Room Air Room Air BMI result Body Mass Index 27.7 Appearance: Alert. Oriented X3. No acute distress. Feeling anxious Eyes: PERRLA, No Nystagmus ENT: Pharynx normal. Oral Mucosa moist Neck: Normal inspection. Neck supple. CVS: Normal heart rate and rhythm. Pulses normal. Respiratory: No respiratory distress. Equal air entry bilateral, no wheezing/rales/rhonchi Abdomen: Soft and nontender. Bowel sounds are present, no mass palpable, no CVA tenderness Skin: Skin warm and dry. Normal skin color. Normal skin turgor. Extremities: No lower extremity edema. No calf tenderness Neuro: Oriented X 3. No motor deficit. No sensory deficit.No cerebellar signs , cranial nerves II-XII intact Medications Administered Discontinued Medications Generic Name Dose Route Start Last Admin Trade Name Freq PRN Reason Stop Dose Admin Lorazepam 0.5 mg 02/28/25 05:43 02/28/25 06:06 Lorazepam 0.5 Mg Tablet PO 02/28/25 05:44 0.5 mg ONCE ONE Administration Medical Decision Making Medical Decision Making [facility] Narrative: Patient with frequent ED visits with anxiety and/panic attacks was given lorazepam in the ER for better will discharge patient Discharge Plan Discharge Clinical Impression: Generalized anxiety disorder with panic attacks Patient Disposition: Home, Self-Care Instructions: Anxiety (ED) Additional Instructions: Take medication for anxiety and follow with your therapist Prescriptions: No Action metoprolol succinate 50 mg tablet extended release 24 hr 50 mg PO DAILY Qty: 90 2RF valsartan 160 mg tablet 160 mg PO DAILY Qty: 90 1RF mirtazapine 45 mg Tablet 45 mg PO BEDTIME omeprazole 20 mg Tablet,Delayed Release (Dr/Ec) 20 mg PO DAILY@0630 fluticasone propionate [Flonase Allergy Relief] 50 mcg/actuation sp ray,suspension 2 spray intranasal DAILY Qty: 16 0RF Rx Instructions: administer into each nostril hydroxyzine HCl 25 mg tablet 25 mg PO TID PRN (Reason: anxiety) Qty: 6 0RF hydroxyzine HCl 25 mg tablet 25 mg PO TID PRN (Reason: anxiety) Qty: 20 0RF miconazole nitrate 2 % cream 1 appl topical BID Qty: 28 0RF azithromycin [Zithromax] 250 mg tablet 250 mg PO DAILY 4 Days Qty: 4 0RF Rx Instructions: start on day 2 of therapy trazodone 50 mg tablet 50 mg PO BEDTIME ferrous sulfate [FeroSul] 325 mg (65 mg iron) tablet 325 mg PO DAILY diphenhydramine HCl [Lou-Dryl] 25 mg tablet 25 mg PO BEDTIME PRN (Reason: itch) bisacodyl 5 mg tablet,delayed release (DR/EC) 5 mg PO DAILY PRN (Reason: constipation) rosuvastatin 20 mg tablet 20 mg PO BEDTIME aspirin 81 mg tablet,delayed release (DR/EC) 81 mg PO QAM multivitamin Tablet 1 tab PO QAM melatonin 10 mg tablet extended release 10 mg PO BEDTIME PRN (Reason: Insomnia) cholecalciferol (vitamin D3) 25 mcg (1,000 unit) tablet 25 mcg PO DAILY ondansetron 4 mg tablet,disintegrating 4 mg PO Q6H PRN (Reason: nausea and vomiting) Qty: 10 0RF acetaminophen 500 mg tablet 500 mg PO Q8H PRN (Reason: pain) zolpidem 5 mg tablet 5 mg PO BEDTIME PRN (Reason: Insomnia) ipratropium bromide 21 mcg (0.03 %) spray,non-aerosol 2 spray intranasal BID clonazepam 0.5 mg Tablet 0.5 mg PO TID Qty: 180 0RF gabapentin 100 mg Capsule 100 mg PO TID Qty: 180 0RF nitrofurantoin monohyd/m-cryst [Macrobid] 100 mg capsule 100 mg PO Q12H 3 Days Qty: 6 0RF Rx Instructions: must administer with a meal/food miconazole nitrate [Monistat 7] 2 % cream 1 appful vaginal BEDTIME 7 Days Qty: 45 0RF ofloxacin 0.3 % drops 10 drp otic (ears) DAILY 7 Days Qty: 5 0RF docusate sodium [Col-Rite] 100 mg capsule 200 mg PO BID Qty: 30 0RF polyethylene glycol 3350 [ClearLax] 17 gram/dose powder 17 g PO Q8H Qty: 238 0RF Advanced Healing (Petrolatum) 41 % ointment 1 appl topical BID PRN (Reason: irritated skin) Qty: 50 0RF docusate sodium [Colace] 100 mg capsule 200 mg PO BID Qty: 20 0RF polyethylene glycol 3350 [Miralax] 17 gram/dose powder 17 g PO BID Qty: 119 0RF simethicone 180 mg capsule 180 mg PO BID PRN (Reason: abdominal distention) Qty: 14 0RF amlodipine 10 mg tablet 10 mg PO DAILY meclizine 25 mg tablet 25 mg PO DAILY PRN Interventions: ED Discharge Assessment Last Done: 02/28/25 06:07 Discharge Date/Time: 02/28/25 06:15 Print Language: Amharic
[2025-02-28 05:59] VITALS: BP 149/58; PULSE 79; RESP 16; TEMP 36.8; O2SAT 96
[2025-02-28] MEDS: LORazepam 0.5 MG TABLET PO (06:06)
[2025-02-28 06:07] VITALS: BP 149/51; PULSE 88; RESP 24; TEMP 36.9; O2SAT 99
== END 2025-02-28 06:15 | disposition home or self-care (01) ==
PROVIDERS: Emergency Provider Internal Medicine
DX: F41.9 Anxiety disorder, unspecified (principal); F41.0 Panic disorder [episodic paroxysmal anxiety]; R06.02 Shortness of breath

== ENCOUNTER 2025-02-28 10:36 | Emergency (ER) | payer OTHER, SELFPAY ==
--- NOTE | 2025-02-28 | ECG_ITS ---
Test Reason : htn Blood Pressure : */* mmHG Vent. Rate : 107 BPM Atrial Rate : 107 BPM P-R Int : 186 ms QRS Dur : 98 ms QT Int : 324 ms P-R-T Axes : 36 -35 51 degrees QTcB Int : 432 ms Sinus tachycardia Left axis deviation Moderate voltage criteria for LVH, may be normal variant ( R in aVL , Maycol product ) Abnormal ECG When compared with ECG of 20-Feb-2025 07:31, No significant change was found Referred By: Generic ED Physician Electronically Signed By: ZANDRA ENNIS
[2025-02-28 10:46] VITALS: BP 172/90; BP 199/90; PULSE 116; PULSE 122; RESP 19; TEMP 37.1; O2SAT 98; BMI 28.3
--- OUTSIDE RECORDS SUMMARY | 2025-02-28 11:06 | XMS_ITS | Encounter Summary ---
Author Organization [employer] Address [address] [facility] [address] [place] [address] Care Team Providers Care Wrecking Mechanic Name Role Phone Name, Nitin PIKE Primary Care Provider [phone] Reason for Visit * Reason Comments Med Refill Encounter Details Date Type Department Care Team ([facility] st Contact Info) Description 04/01/2024 Refill [facility] [address] [place], [place] [phone] Name, MD Nitin [address] [place] [address] Rash Social History Tobacco Use Types Packs/Day [...] Description 04/29/2025 10:00 AM EDT Office Visit [facility] [address] [place] [address] Name, MD Nitin [address] [place] [address] documented as of this encounter Visit Diagnoses Diagnosis Rash Rash and other nonspecific skin eruption documented in this encounter Additional Health Concerns Assessment Noted Time PHQ-9 Depression Total Score: 6 02/13/20 9:14 AM EDT documented as of this encounter Care Teams Wrecking Mechanic Relationship Specialty Start Date End Date NameNitin MD [address] [place] [address] PCP - General Family Medicine 08/26/17 [facility] 09/01/24 documented as of this encounter
--- OUTSIDE RECORDS SUMMARY | 2025-02-28 11:06 | XMS_ITS | Encounter Summary ---
Author Organization [employer] Address [address] [facility] [address] [place] [address] Care Team Providers Care Oracle Manufacturing Consultant Name Role Phone Name, Nitin PIKE Primary Care Provider [phone] Reason for Visit * Reason Onset Date Comments ER Follow-up 05/04/2024 Encounter Details Date Type Department Care Team ([facility] st Contact Info) Description 05/04/2024 Telephone [facility] [address] [place], [place] [phone] Name, MD Nitin [address] [place] [address] ER Follow-up Social History Tobacco Use Types [...] 11:01 AM EDT T/C to pt. Through [employer] id - [id number] for below message, No answer. LVM to call back [phone] . * Telephone Encounter - Adithya Solorzano - 05/04/2024 9:35 AM EDT Noreen with [facility] calling to report ED visit on : Date: 04/28 Hospital: [facility] Seen for: UTI, Nausea, Rash. Noreen advised will be forwarding message to team nurses. Please contact pt at [phone]. documented in this encounter Plan of Treatment Upcoming Encounters Date Type Department Care Team (Late st Contact Info) Description 04/29/2025 10:00 AM EDT Office Visit [facility] [address] [place] [address] Name, MD Nitin [address] [place] [address] documented as of this encounter Visit Diagnoses Not on filedocumented in this encounter Additional Health Concerns Assessment Noted Time PHQ-9 Depression Total Score: 6 02/13/20 24 9:14 AM EDT documented as of this encounter Care Teams Oracle Manufacturing Consultant Relationship Specialty Start Date End Date Name, MD Nitin [address] [place] [address] PCP - General Family Medicine 08/26/17 [facility] 09/01/24 documented as of this encounter
--- OUTSIDE RECORDS SUMMARY | 2025-02-28 11:06 | XMS_ITS | Encounter Summary ---
Author Organization [employer] Address [address] [facility] [address] [place] [address] Care Team Providers Care [employer] Center Teacher Name Role Phone Name, Nitin PIKE Primary Care Provider [phone] Reason for Visit * Reason Onset Date Comments Hospital Follow-up 10/20/2024 Encounter Details Date Type Department Care Team ([facility] st Contact Info) Description 10/20/2024 Telephone [facility] [address] [place], [place] [phone] Name, MD Nitin [address] [place] [address] Hospital Follow-up Social History Tobacco Use Types [...] the past 12 months, has t he [employer], gas, oil or water company threatened to [...] from pt requesting a HDF appt. Hospital: [facility] Date of admission: 10/17 Discharge date: 10/19 Diagnosed: High Blood Pressure and Fever Contact pt at [phone] *Send message to [facility] Clinical Care Coordinators documented in this encounter Plan of Treatment Upcoming Encounters Date Type Department Care Team (Late st Contact Info) Description 04/29/2025 10:00 AM EDT Office Visit [facility] [address] [place] [address] Name, MD Nitin [address] [place] [address] documented as of this encounter Visit Diagnoses Not on filedocumented in this encounter Additional Health Concerns Assessment Noted Time PHQ-9 Depression Total Score: 6 02/13/20 24 9:14 AM EDT documented as of this encounter Care Teams Educational Resource Center Teacher Relationship Specialty Start Date End Date Name, MD Nitin [address] [place] [address] PCP - General Family Medicine 08/26/17 [facility] 09/01/24 documented as of this encounter
--- OUTSIDE RECORDS SUMMARY | 2025-02-28 11:06 | XMS_ITS | Encounter Summary ---
Author Organization [employer] Address [address] [facility] [address] [place] [address] Care Team Providers Care Plaster Caster Name Role Phone Name, Nitin PIKE Primary Care Provider [phone] Reason for Visit * Reason Onset Date Comments ER Follow-up 05/31/2024 Encounter Details Date Type Department Care Team ([facility] st Contact Info) Description 05/31/2024 Telephone [facility] [address] [place], [place] [phone] Name, MD Nitin [address] [place] [address] ER Follow-up Social History Tobacco Use Types [...] 05/31/2024 1:36 PM EDT T/C to Pat ([facility]) [phone] for below message, no answer. LVM to call back on [phone]. * Telephone Encounter - Melany Santos RN - 05/31/2024 1:32 PM EDT DAVID T/C to pt. Through [employer] id - [id number] for below message, pt. Had recent fall and ED visit at [facility]. RN will request GRACE piedra from [facility]. Pt. Is doing good, states I am tired andsleeping. Pt. Dose not has any question or concern right now. Pt. Already has HDF apt. Schedule on 06/10/2024. Pt. Advised to give call to [facility] if any questions or concerns. Pt. Verbally agreed and understood. Please review and advise if needed. * Telephone Encounter - Adithya Solorzano - 05/31/2024 12:50 PM EDT Patient calling to report ED visit on : Date: 05/26 Hospital: [facility] Seen for: Fall, Back Pain Pat stated pt is requesting a sooner apt with pcp due to recent ER visit. PT is also requesting order for PT services for to go along with [facility]. documented in this encounter Plan of Treatment Upcoming Encounters Date Type Department Care Team (Late st Contact Info) Description 04/29/2025 10:00 AM EDT Office Visit [facility] [address] [place] [address] Name, MD Nitin [address] [place] [address] documented as of this encounter Visit Diagnoses Not on filedocumented in this encounter Additional Health Concerns Assessment Noted Time PHQ-9 Depression Total Score: 6 02/13/20 24 9:14 AM EDT documented as of this encounter Care Teams Plaster Caster Relationship Specialty Start Date End Date Name, MD Nitin [address] [place] [address] PCP - General Family Medicine 08/26/17 [facility] 09/01/24 documented as of this encounter
--- OUTSIDE RECORDS SUMMARY | 2025-02-28 11:06 | XMS_ITS | Encounter Summary ---
Author Organization [employer] Address [address] [facility] [address] [place] [address] Care Team Providers Care Anodizer Name Role Phone Name, Nitin PIKE Primary Care Provider [phone] Reason for Visit * Reason Onset Date Comments Results 08/29/2023 Encounter Details Date Type Department Care Team ([facility] st Contact Info) Description 08/29/2023 Telephone [facility] [address] [place], [place] [phone] Name, MD Nitin [address] [place] [address] Results Social History Tobacco Use Types Packs/Day [...] 09/01/2023 11:51 AM EDT Pt evaluated in [facility] today and is scheduled with pcp 09/03/23. * Telephone Encounter - Janette Huitron - 08/29/2023 4:06 PM EDT Tc from pt requesting a call in regards to urine results. Please contact pt at [phone] (Jordanian) documented in this encounter Plan of Treatment Upcoming Encounters Date Type Department Care Team (Late st Contact Info) Description 04/29/2025 10:00 AM EDT Office Visit [facility] [address] [place] [address] Name, MD Nitin [address] [place] [address] documented as of this encounter Visit Diagnoses Not on filedocumented in this encounter Additional Health Concerns Assessment Noted Time PHQ-9 Depression Total Score: 12 023 9:37 AM EDT documented as of this encounter Care Teams Anodizer Relationship Specialty Start Date End Date NameNitin MD [address] [place] [address] PCP - General Family Medicine 08/26/17 [facility] 09/01/24 documented as of this encounter
--- OUTSIDE RECORDS SUMMARY | 2025-02-28 11:06 | XMS_ITS | Clinical Summary ---
Author Organization [facility] Facility Address [address] [address] Care Team Providers Care Core Maker Name Role Phone Name, Nitin PIKE Primary Care Provider [phone] Allergies Active Allergy Reactions Criticality Noted Date [...] Degeneration of lumbosacral intervertebral disc 05/14/2012 Immunizations Immunization Administration Dates Next Due Influenza Split 07/19/2013,08/04/2012 [...] 07/26/2022, 07/28/2021, Additional history exists Pneumococcal Vaccine: 50+ Years Completed 07/21/2019, 06/08/2015, 09/08/2012 Pneumococcal Vaccine: Peds (0 to 5 Years) and At-Risk Patients (6 to 49 Years) Discontinued 07/21/2019, 06/08/2015, 09/08/2012 Hepatitis B Vaccine Aged Out No longe r eligible based on patient's age to complete this topic [place] [address] MCR ([id number]) [place] [phone] [facility] MCR ([id number]) Care Teams Core Maker Relationship Specialty Start Date End Date Name, MD Nitin [address] [place] [address] PCP - General Internal Medicine 10/15/22
--- OUTSIDE RECORDS SUMMARY | 2025-02-28 11:06 | XMS_ITS | Clinical Summary ---
Author Organization [facility] Address [address] [place] [address] Phone Care Team Providers Care Derrick Engineer Name Role Phone Physician, No Pcp Primary [...] Health Screening 06/02/2024 Depression Screening 02/12/2025 02/13/2024 COVID-19 Vaccine ( season) 2025 08/16/2024, 08/22/2022, 02/19/2022, Additional history exists Hypertension/CHF/CAD Annual BMP Blood Test 10/25/2025 10/25/2024, 09/22/2024, 08/16/2024, Additional history exists Cholesterol Screening (Lipid Panel) 09/19/2027 09/19/2022 DTaP,Tdap,and Td Vaccines (6 - Td or Tdap) 10/20/2033 10/20/2023, 07/06/2018, 12/02/2013, Additional history exists Zoster Vaccines Completed 01/19/2020, 09/15/2019 Pneumococcal Vaccine: 50+ Years Completed 12/26/2023, 07/21/2019, 06/08/2015, Additional history exists RSV Immunization Adult Patients Completed 12/26/2023 Influenza Vaccine Completed 08/16/2024, , 07/26/2022, Additional [...] mmol/L LAB CHEMISTRY METHOD 09/22/2024 3:15 AM [facility] Potassium 4.6 3.5 - 5.5 mmol/L LAB CHEMISTRY METHOD 09/22/2024 3:15 AM [facility] Chloride 98 96 - 110 mmol/L LAB CHEMISTRY METHOD 09/22/2024 3:15 AM [facility] CO2 28 21 - 32 mmol/L LAB CHEMISTRY METHOD 09/22/2024 3:15 AM [facility] Anion Gap 6 3 - 11 LAB CHEMISTRY METHOD 09/22/2024 3:15 AM [facility] Glucose 119(H) 70 - 100 mg/dL LAB CHEMISTRY METHOD 09/22/2024 3:15 AM [facility] BUN 25 5 - 25 mg/dL LAB CHEMISTRY METHOD 09/22/2024 3:15 AM [facility] Creatinine 1.18(H) 0.50 - 1.10 mg/dL LAB CHEMISTRY METHOD 09/22/2024 3:15 AM [facility] eGFR 47(L) >=60 mL/min/1. 73m2 LAB CHEMISTRY METHOD 09/22/2024 3:15 AM [facility] Comment:Calculation based on the??Chronic Kidney Disease Epidemiology Collaboration (CKD-EPI) equation refit??without adjustment for race. BUN/Creatinine Ratio 21.2 LAB CHEMISTRY METHOD 09/22/2024 3:15 AM [facility] Calcium 9.3 8.5 - 10.5 mg/dL LAB CHEMISTRY METHOD 09/22/2024 3:15 AM [facility] AST (SGOT) 37 10 - 42 unit/L LAB CHEMISTRY METHOD 09/22/2024 3:15 AM [facility] ALT (SGPT) 25 10 - 60 unit/L LAB CHEMISTRY METHOD 09/22/2024 3:15 AM [facility] Alkaline Phosphatase 77 42 - 121 unit/L LAB CHEMISTRY METHOD 09/22/2024 3:15 AM [facility] Total Protein 8.0 6.0 - 8.0 g/dL LAB CHEMISTRY METHOD 09/22/2024 3:15 AM EST [facility] Albumin 4.2 3.2 - 5.0 g/dL LAB CHEMISTRY METHOD 09/22/2024 3:15 AM EST [facility] Total Bilirubin 0.4 0.0 - 1.4 mg/dL LAB CHEMISTRY METHOD 09/22/2024 3:15 AM EST [facility] Blood Venous blood specimen / Unknown Venipuncture / Unknown 09/22/2024 2:28 AM EST 09/22/2024 2:31 AM EST Paul RUIZ LAB BLOOD ORDERABLES Final Resul t [facility] [address] [place] [address], from Last 3 Months or Most Recently Relevant to Health Maintenance Insurance [facility] MEDICARE Member Subscriber Plan / Payer (Ef fective 2021-Present) Name:WingNoreen garcia Relation to Subscriber:Self Name:WingNoreen garcia Payer ID:[id number] Group ID:[id number] Type:Not on file Address: [facility] [address] [phone] Care Teams Derrick Engineer Relationship Specialty Start Date End Date Physician, No Pcp PCP - General 09/22/24
--- OUTSIDE RECORDS SUMMARY | 2025-02-28 11:06 | XMS_ITS | Encounter Summary ---
Author Organization [employer] Address [address] [facility] [address] [place] [address] Care Team Providers Care Carbide Die Maker Name Role Phone Name, Nitin PIKE Primary Care Provider [phone] Reason for Visit * Reason Onset Date Comments Med Refill 11/08/2024 Encounter Details Date Type Department Care Team ([facility] st Contact Info) Description 11/08/2024 Telephone [facility] MEDICINE [address] [place], [place] [phone] Name, MD Nitin [address] [place] [address] Med Refill Social History Tobacco Use Types [...] 5 MG tablet To be sent to: [facility] - [place], [place] - [address] [facility] documented in this encounter Plan of Treatment Upcoming Encounters Date Type Department Care Team ([facility] st Contact Info) Description 04/29/2025 10:00 AM EDT Office Visit [facility] [address] [place] [address] Name, MD Nitin [address] [place] [address] documented as of this encounter Visit Diagnoses Not on filedocumented in this encounter Additional Health Concerns Assessment Noted Time PHQ-9 Depression Total Score: 6 02/13/20 24 9:14 AM EDT documented as of this encounter Care Teams Carbide Die Maker Relationship Specialty Start Date End Date Name, MD Nitin [address] [place] [address] PCP - General Family Medicine 08/26/17 [facility] 09/01/24 documented as of this encounter
--- OUTSIDE RECORDS SUMMARY | 2025-02-28 11:06 | XMS_ITS | Encounter Summary ---
Author Organization [facility] Address [address] [facility] [address] [place] [address] Care Team Providers Care Crop Duster Helper Name Role Phone NameNitin MD Primary Care Provider Encounter Details Date Type Department Care Team (Late st Contact Info) Description 05/26/2023 Orders Only [facility] MEDICINE [address] [place] [address] [phone] Noreen Fox MD [address] [place] [address] [phone] Social History Tobacco Use Types Packs/Day Years [...] Description 04/29/2025 10:00 AM EDT Office Visit [facility] MEDICINE [address] [place] [address] [phone] Name, MD Nitin [address] [place] [address] documented as of this encounter Visit Diagnoses Not on filedocumented in this encounter Care Teams Crop Duster Helper Relationship Specialty Start Date End Date Name, MD Nitin [address] [place] [address] PCP - General Family Medicine 08/26/17 [facility] 09/01/24 documented as of this encounter
--- OUTSIDE RECORDS SUMMARY | 2025-02-28 11:06 | XMS_ITS | Data Portability ---
Author Organization [employer] [employer] [facility] [employer] Address [address] [place] [id number] Care Team Providers Care Chauffeur Name Role Phone HIM [facility] Primary Care Provider [phone] Assessment No assessment recorded. Plan of Treatment [...] Last Updated DateTime 18 /min 74 /min 31195.9 28 g 98 % 98 % 100 [degF] 130 mm[Hg] 66 mm[Hg] Not Available [employer] [employer] 15:33:18 Social History None recorded. Functional Status None recorded. Mental Status None recorded. Family History Nothing Reported. Medical History No medical history recorded. Gynecological HistoryNo gynecological history recorded. 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 She called today because she insists on having the catheter removed. It was removed by the chief technologist with the understand ing that if she can't void, she will need to go the the ER. The patient agreed with this plan. [id number] Rohit Benton MD Main - [address] [phone] 02/06/2024 15:33:16 02/09/2024 18:20:42 Chronic retention of urine [id number] R33.8 Has bunn catheter which was recently [...] [place] Member ID Guarantor Name 01/31/[address] [facility] - DOS ON OR AFTER 2023 - DUAL ELIGIBLE - RETIREMENT OPTIONS AND ONE CARE (MEDICARE REPLACEMENT/ADV ANTAGE - HMO) Noreen Wing [id number] Noreen Wing 02/06/[address] [facility] - DOS ON OR AFTER 2023 - DUAL ELIGIBLE - RETIREMENT OPTIONS AND ONE CARE (MEDICARE REPLACEMENT/ADV ANTAGE - HMO) Noreen Wing [id number] Noreen Wing Notes Date Note Type Note Provider Name and Address Organization Details Recorded Time 01/31/2024 text/html [facility] Nurse Triage Notes (Joana Dominique): Reason For Request: Bunn catheter malfunction/painful Chief Complaints: UTI/Pyelonephritis, Equipment-Related Allergies: No Known Comments: Afghan speaking member who denies any PMH, denies [...] Epifanio Mcintyre MD [address], [place], [address], [facility] 01/31/2024 19:05:57 02/06/2024 text/html HPI: Member asked for HV tomorrow after 10 AM if possible. Treated at the [facility] ER today, for F/u leaking, stated is [...] son Jame Wing. Member is 78 y/o Afghan speaking female who resides on [facility] with her son. Member has multiple [...] sees her BH counselor weekly and Prescriber POWERHOUSE MECHANIC SUPERVISOR [place] monthly if needed or every 2-3 months, .................... .................... .................... .................... .................... .................... .................... . [facility] Nurse Triage Notes (Zafar Irving): Comments: Reviewed HPI .................... .................... .................... .................... .................... .................... .................... . Nuclear Design Engineer Note From [facility] [place]: Pt sts doesn? [...] Vitals stable. Urine clear and light yellow. [facility] contacted and advised pt to rest and advised to make sure she goes to appt Friday. Pt son was used as breeder service technician. Pt education on signs indicating the ER. Nuclear Design Engineer Allergies: Clindamycin .................... .................... .................... .................... .................... .................... .................... . Disposition: Fulfilled Rohit Benton MD [address] [facility], [place], [address], [facility] 02/06/2024 17:58:19 OBGyn Episode No OBEpisode recorded.
--- OUTSIDE RECORDS SUMMARY | 2025-02-28 11:06 | XMS_ITS | Encounter Summary ---
Author Organization [employer] Address [address] [facility] [address] [place] [address] Care Team Providers Care Drying Rack Changer Name Role Phone Name, Nitin PIKE Primary Care Provider [phone] Reason for Visit * Reason Comments Med Refill Encounter Details Date Type Department Care Team ([facility] st Contact Info) Description 06/28/2024 Refill [facility] [address] [place], [place] [phone] Mel Anguiano FNP [address] [place] [address] Social History Tobacco Use Types Packs/Day Years [...] Office Visit [facility] MEDICINE [address] [place] [address] Name, MD Nitin [address] [place] [address] documented as of this encounter Visit Diagnoses Not on filedocumented in this encounter Additional Health Concerns Assessment Noted Time PHQ-9 Depression Total Score: 6 02/13/20 9:14 AM EDT documented as of this encounter Care Teams Drying Rack Changer Relationship Specialty Start Date End Date Name, MD Nitin [address] [place] [address] PCP - General Family Medicine 08/26/17 [facility] 09/01/24 documented as of this encounter
--- OUTSIDE RECORDS SUMMARY | 2025-02-28 11:07 | XMS_ITS | Clinical Summary ---
Author Organization [employer] Address [address] [facility] [address] [place] [address] Care Team Providers Care Clinical Research Analyst Name Role Phone Name, Nitin PIKE Primary Care Provider [phone] Allergies Active Allergy Reactions Criticality Noted Date [...] FOR 7 DAYS 10 mL 023 Active Blood Pressure Monitoring (3 Series BP Monitor/Upper Arm) device 1 Units in the morning. 1 each Active mirtazapine (Remeron) 45 MG tabletIndicatio ns:Depressive [...] hours. 30 mL 2 024 2024 Active clonazePAM (KlonoPIN) 0.5 MG tablet TOME MITESH TABLETA POR V A ORAL RIZWAN VECES AL D A Active gabapentin (Neurontin) 100 MG capsule TOME 1 C PSULA POR V A ORAL RIZWAN VECES AL D A Active azithromycin (Zithromax Z-Alirio) 250 MG tablet Take 2 tabs day 1 and then 1 tab daily to finish 6 tablet Active Acetaminophen Extra Strength 500 MG tabletIndicatio ns:Chronic bilateral low back pain without sciatica TAKE 1 TABLET BY MOUTH EVERY 8 HOURS NEEDED FOR PAIN (CZECH LABEL) 90 tablet 024 Active ammonium lactate (Lac-Hydrin) 12 % lotion APPLY TOPICALLY TWICE DAILY IN THE MORNING AND AT BEDTIME FOR DRY SKIN Active Bisacodyl EC 5 MG EC tablet TAKE 1 TABLET BY MOUTH EVERY DAY NEEDED FOR CONSTIPATION. DO NOT BREAK, CRUSH, DISSOLVE OR CHEW 30 tablet 3 Active polyethylene glycol, PEG, 3350 (GaviLAX) 17 [...] EVERY MORNING 90 tablet 1 025 Active amLODIPine (Norvasc) 10 MG tabletIndicatio [...] HOURS NEEDED FOR ANXIETY 30 capsule 025 Active omeprazole (PriLOSEC) [address] capsuleIndicati ons:Heartburn TAKE 1 CAPSULE BY MOUTH EVERY MORNING 1 HOUR BEFORE BREAKFAST 90 capsule 1 025 Active gabapentin (Neurontin) 100 MG capsule Take 1 capsule (100 mg) by mouth 2 times daily for 1 day. 2 capsule 025 Active Ferrous Sulfate (iron) 325 (65 Fe) MG tablet TAKE 1 TABLET BY MOUTH EVERY MORNING WITH FOOD 30 tablet 025 Active fluticasone (Flonase Allergy Relief) 50 MCG/ACT nasal sprayIndication s:Allergic rhinitis, unspecified seasonality, unspecified trigger Administer 1-2 sprays into each nostril Once per day. 16 g 1 025 Active cholecalciferol (Vitamin D-3) 25 MCG tabletIndicatio ns:Vitamin D deficiency TAKE 1 TABLET BY MOUTH TWICE DAILY IN THE MORNING AND IN THE EVENING 60 tablet 025 Active fluticasone (Flonase Allergy Relief) 50 MCG/ACT nasal sprayIndication s:Allergic rhinitis, unspecified seasonality, unspecified trigger Administer 1-2 sprays into each nostril in the morning. 16 g 1 024 2024 Discontinued(R eorder (will not trigger notification to Pharmacy)) diphenhydrAMINE (BENADryl) 25 MG tablet Take 1 tablet (25 mg) by mouth if needed at bedtime for itching. 30 tablet 024 2024 Discontinued(T herapy completed) omeprazole (PriLOSEC) [address] capsuleIndicati ons:Heartburn TAKE 1 CAPSULE BY MOUTH EVERY MORNING 1 HOUR BEFORE BREAKFAST 90 capsule 1 024 2024 Discontinued Linzess 145 MCG capsuleIndicati ons:Chronic constipation TAKE 1 CAPSULE BY MOUTH EVERY DAY BEFORE BREAKFAST, DO NOT BREAK, CRUSH, DISSOLVE OR CHEW 30 capsule 025 2024 Discontinued(R eorder (will not trigger notification to Pharmacy)) meclizine (Antivert) 25 MG tabletIndicatio ns:Vertigo TAKE 1 TABLET BY MOUTH EVERY DAY NEEDED 30 tablet 025 2024 Discontinued(R eorder (will not trigger notification to Pharmacy)) Ferrous Sulfate (iron) 325 (65 Fe) MG tablet TAKE 1 TABLET BY MOUTH EVERY MORNING WITH FOOD 30 tablet 025 2024 Discontinued cholecalciferol (Vitamin D-3) 25 MCG tabletIndicatio ns:Vitamin D deficiency TAKE 1 TABLET BY MOUTH TWICE DAILY IN THE MORNING AND IN THE EVENING 60 tablet 025 2024 Discontinued hydrOXYzine pamoate (Vistaril) 50 [...] finger at forearm level, initial encounter 12/18/2023 0206/2024 Left ear impacted cerumen 12/18/20232023 History of [...] because it calms her down. I called [facility] pharmacy to attempt a med rec they instructed me that she is on med box and one week at a time prescriptions because she would break into her med boxes to take more Ambien or xanax. She is being seen by Izzy Perea at [facility]. He is aware of her behavior and [...] left I received a call from the [facility] pharmacy instructing me that she was [...] of visit. No change in meds. JOSELUIS w PCP Assessment & Plan (12/19/2022 10:42 AM EST): Likely exacerbated by anxiety, improved during visit. She denies other symptoms. She will go home to take her medications. Degeneration of lumbosacral intervertebral disc 05/14/2012 Encounters Date Type Department Care Team Description 02/23/2025 Refill [facility] [address] [place] [phone] Nitin Echevarria MD Vitamin D deficiency 02/22/2025 8:40 AM EDT [facility] [address] [address] Zechariah Cheung MD Chronic rhinitis (Primary Dx); Tinnitus of both ears; Chronic left ear pain; Allergic rhinitis, unspecified seasonality, unspecified trigger 02/22/2025 Travel 02/14/2025 9:00 AM EDT [facility] [address] [address] Delfina Romero MD 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); Viral upper respiratory tract infection 02/14/2025 Travel 02/14/2025 Refill [facility] [address] [place] [address] Nitin Echevarria MD Heartburn 02/14/2025 Orders Only GENERIC EXTERNAL DATA DEPARTMENT Provider, Generic External Data 02/11/2025 Refill [facility] [address] [place] [address] Nitin Echevarria MD Generalized anxiety disorder with panic attacks 02/07/2025 Orders Only GENERIC EXTERNAL DATA DEPARTMENT Provider, Generic External Data 02/06/2025 Orders Only GENERIC EXTERNAL DATA DEPARTMENT Provider, Generic External Data 02/02/2025 Refill [facility] [address] [place] [address] Nitin Echevarria MD Chronic constipation; Vertigo 02/01/2025 Refill [facility] [address] [place] [address] Nitin Echevarria MD Generalized anxiety disorder with panic attacks 01/31/2025 9:20 AM EDT Office Visit [facility] [address] [place] [phone] Karely Patiño MD Impacted cerumen of left ear (Primary Dx) 01/24/2025 Refill [facility] [address] [place] [phone] Nitin Echevarria MD Generalized anxiety disorder with panic attacks; Hypertension, unspecified type 01/10/2025 11:00 AM EST Office Visit [facility] [address] [place] [address] Nitin Echevarria MD Generalized anxiety disorder with panic attacks (Primary Dx); Cerumen debris on tympanic membrane of both ears 01/10/2025 Travel 01/09/2025 Refill [facility] [address] [place] [address] Nitin Echevarria MD Hypertension, unspecified type 01/05/2025 Telephone [facility] [address] [place] [address] Nitin Echevarria MD chartprep 01/03/2025 Refill [facility] [address] [place] [address] Nitin Echevarria MD Vertigo; Vitamin D deficiency 12/26/2024 Refill [facility] [address] [place] [address] Nitin Echevarria MD Prediabetes 12/17/2024 Refill [facility] [address] [place] [address] Daphne Fofana MD Chronic constipation; Vitamin D deficiency 12/06/2024 Refill [facility] [address] [place] [address] Nitin Echevarria MD Vertigo from Last 3 Months Immunizations Name Administration Dates Next Due INFLUENZA VACCINE QUADRIVALE NT RECOMBINANT PRESERVATIVE FREE RIV4 08/13/2020 Influenza High-dose Quadriva lent Preservative Free 07/26/2022 Influenza Quadrivalent Adjuvanted 07/24/2023, Influenza injectable quadriv alent IIV4 with preservative 08/13/2020,08/02/2016,08/28/2015 Influenza, High Dose Seasona l, Preservative Free 08/16/2024,08/05/2017 Influenza, Split (incl. sunita fied surface antigen) 07/19/2013,08/04/2012 Influenza, Unspecified 07/26/2022 Influenza, trivalent, adjuvanted 07/06/2019,02/2018 Moderna Covid-19 Vaccine 12+ 02/19/2022,01/19/20 21,12/22/2020 Pfizer [...] Sign Reading Time Taken Comments Blood Pressure 127/77 02/22/2025 8:44 AM EDT Pulse 104 02/22/2025 8:44 AM EDT Temperature 36.6 ??C (97.8 ??F) 02/22/2025 8:44 AM ED T Respiratory Rate 18 02/22/2025 8:44 AM EDT Oxygen Saturation 97% 02/22/2025 8:44 AM EDT Inhaled Oxygen Concentration - - Weight 82.6 kg (182 lb 3.2 oz) 02/22/2025 8:44 A M EDT Height 165.1 cm (5' 5 ) 02/14/2025 8:45 AM EDT Body Mass Index 30.32 02/14/2025 8:45 AM EDT Plan of Treatment Upcoming Encounters Date Type Department Care Team (Late st Contact Info) Description 04/29/2025 10:00 AM EDT Office Visit [facility] [address] [place] [address] Name, MD Nitin [address] [place] [address] Health Maintenance Due Date Last Done Comments Depression Screening 02/12/2025 02/13/2024, 02/13/20 Alcohol/Substance Use Screening 06/14/2025 06/14/2024 SDOH Screening 06/14/2025 06/14/2024 Diabetes: Hemoglobin A1C 01/10/2026 025, 06/02/2023, 12/25/2022, Additional history exists Tobacco Screening 02/22/2026 02/22/2025 Lipid Panel 09/19/2027 09/19/2022, 01/08, 04/12/2021 DTaP/Tdap/Td [...] Name Priority Date/Time Associated Diagnosis Comments POCT INFLUENZA B (ID NOW RAPID MOLECULAR) Routine 02/22/2025 8:58 AM EDT Allergic rhinitis, unspecified seasonality, unspecified trigger POCT INFLUENZA A (ID NOW RAPID MOLECULAR) Routine 02/22/2025 8:58 AM EDT Allergic rhinitis, unspecified seasonality, unspecified trigger POCT RAPID STREP A Routine 02/22/2025 8: 58 AM EDT Allergic rhinitis, unspecified seasonality, unspecified trigger POCT RAPID COVID ANTIGEN Routine 02/22/2025 8:58 AM EDT Allergic rhinitis, unspecified seasonality, unspecified trigger XR CHEST 1 VIEW Routine 02/14/2025 2:56 AM EDT SARS COV2/INFLUENZA A/B AND RSV RNA QL NAAT Routine 02/14/2025 12:10 AM EDT STREP A NUCLEIC ACID Routine 02/14/2025 12:10 AM EDT XR KUB AND UPRIGHT 2 VIEWS Routine [...] Recently Relevant to Health Maintenance Results * Influenza B (ID NOW Rapid Molecular) (02/22/2025 8:58 AM EDT) [facility] Influenza B Negative Negative, Indeterminate [facility] Swab 02/22/2025 8:58 AM EDT us Zechariah Cheung MD POINT OF CARE TEST ENTER/EDIT OR DERABLES Final Result Performing Organization Address [facility] Co de Phone Number [facility] [address] [place] [phone] * Influenza A (ID NOW Rapid Molecular) (02/22/2025 8:58 AM EDT) [facility] Influenza A Negative Negative, Indeterminate [facility] Swab 02/22/2025 8:58 AM EDT us Zechariah Cheung MD POINT OF CARE TEST ENTER/EDIT OR DERABLES Final Result Performing Organization Address [facility] Co de Phone Number [facility] [address] [place] [phone] * POCT Rapid COVID Ag (02/22/2025 8:58 AM EDT) [facility] Rapid COVID Ag Negative [facility] Swab 02/22/2025 8:58 AM EDT us Zechariah Cheung MD POINT OF CARE TEST ENTER/EDIT OR DERABLES Final Result Performing Organization Address [facility] Co de Phone Number [facility] [address] [place] [phone] * POCT rapid strep A manually resulted (02/22/2025 8:58 AM EDT) [facility] Rapid Strep A Screen Negative Negative, None Detected [facility] Swab 02/22/2025 8:58 AM EDT us Zechariah Cheung MD POINT OF CARE TEST ENTER/EDIT OR DERABLES Final Result [facility] [address] [place] [address] [phone] * XR Chest 1 View (02/14/2025 2:56 AM EDT) Anatomical Region Laterality Modality Chest Radiographic Lauren ging 02/14/2025 2:56 AM EDT Narrative 02/14/2025 2:58 AM EDT ? [facility] ?[address] ?[place] [address] ?XRay Report ? Signed ? Patient: Wing,Noreen ?MR#: [id number] ? : 1945 ?Acct:[id number] ? Age/Sex: 79 / F ?ADM Date: 02/14/25 ? Loc: HO.ED ? Attending Dr: ? Ordering Physician: Generic ED Physician ?? Date of Service: 02/14/25 ?? Procedure(s): XR chest 1V ?? Accession Number(s): [id number] ? cc: Generic ED Physician; [facility] ? CLINICAL HISTORY: sob ? 1 view chest x-ray ? Comparison: Chest x-ray from 11/10/2024 ? Findings: ?? Low lung volumes with mild bibasilar atelectasis and/or pneumonitis. Mild ?? emphysematous changes are redemonstrated. No pneumothorax or pleural ?? effusion. ?? Imaged mediastinum is unchanged. ?? Degenerative changes include imaged shoulders and AC joints. ? IMPRESSION: ?? Mild bibasilar atelectasis. ? This document has been electronically signed by: Kenyon Hatch MD on ?? 02/14/2025 02:56:46 ? Dictated By: ?Kenyon Hatch MD ? Signed By: ?<Electronically signed by Kenyon Hatch MD in OV> ? 02/14/25 0257 ? DD/ 0256 ? TD/TT: 02/14/25 0256 ? [employer]: ? Procedure Note Dale Shen - 02/14/[address] [place] [address] XRay Report Signed Patient: Noreen WingMR#: [id number] : 1945cct:[id number] Age/Sex: 79 / FADM Date: 02/14/25 Loc: HO.ED Attending Dr: Ordering Physician: Generic ED Physician Date of Service: 02/14/25 Procedure(s): XR chest 1V Accession Number(s): [id number] cc: Generic ED Physician; [facility] CLINICAL HISTORY: sob 1 view chest x-ray Comparison: Chest x-ray from 11/10/2024 Findings: Low lung volumes with mild bibasilar atelectasis and/or pneumonitis. Mild emphysematous changes are redemonstrated. No pneumothorax or pleural effusion. Imaged mediastinum is unchanged. Degenerative changes include imaged shoulders and AC joints. IMPRESSION: Mild bibasilar atelectasis. This document has been electronically signed by: Kenyon Hatch MD on 02/14/2025 02:56:46 Dictated By: Kenyon Hatch MD Signed By: <Electronically signed by Kenyon Hatch MD in OV> 02/14/25 0257 DD/ 025 TD/TT: 02/14/25 025 [facility] [facility]: [facility] External Provider IMG XR PROCEDURES Edited Result - Final * Strep A Nucleic Acid (02/14/2025 12:10 AM EDT) [employer] SERIAL# [id number] [facility] Strep A Nucleic Acid Negative Negative [facility] Comment:All test results mus t be correlated with clinical findings.This test has not been evaluated for monitoring treatment ofinfection.Additional follow-up testing using the culture method isrequired if the result is negative and clinical symptomspersist, or in the event of an acute rheumatic feveroutbreak. 02/14/2025 12:1 0 AM EDT 02/14/2025 12:13 AM EDT Generic External Data Provider LAB MICROBIOLOGY - GENERAL ORDERABLES Final Result [facility] [address] [place] [phone] [phone] * SARS-CoV-2 RNA, Influenza A/B, and RSV RNA, Ql NAAT (02/14/2025 12:10 AM EDT) Influenza A PCR NEGATIVE Negative [facility] Influenza B PCR NEGATIVE Negative [facility] Resp Syncy Virus RNA Qual PCR NEGATIVE Negative [facility] SARS COV2 PCR NEGATIVE Negative [facility] Comment:All test results mus t be correlated with clinical findings.Negative results do not preclude SARS-CoV2, influenza Avirus, influenza B virus and/or RSV infectionand should not be used as the sole basis for treatment orother patient management decisions. Negative results must becombined with clinical observations, patient history, andepidemiological information.This test has not been evaluated for monitoring treatment ofinfection.This test has been authorized by the FDA under an EmergencyUse Authorization (EUA) for use by authorized laboratories.Testing performed on the [employer] GeneXpert utilizingreal-time RT-PCR.All SARS CoV2 and positive influenza A/B results arereported to [facility]. 02/14/2025 12:1 0 AM EDT 02/14/2025 12:13 AM EDT Generic External Data Provider LAB MICROBIOLOGY - GENERAL ORDERABLES Final Result [facility] [address] [place] [address] [phone] * XR KUB and Upright 2 Views (02/07/2025 12:53 AM EDT) Anatomical Region Laterality Modality Radiographic Lauren ging 02/07/2025 12:5 3 AM EDT Narrative 02/07/2025 12:55 AM EDT ? [facility] ?[address] ?[place] [address] ?XRay Report ? Signed ? Patient: Wing,Noreen ?MR#: [id number] ? : 1945 ?Acct:[id number] ? Age/Sex: 79 / F ?ADM Date: 03/30/25 ? Loc: HO.ED ? Attending Dr: ? Ordering Physician: Jeanne Shen ?? Date of Service: 02/07/25 ?? Procedure(s): XR KUB ?? Accession Number(s): [id number] ? cc: Jeanne Shen; [facility] ? CLINICAL HISTORY: pain ? 1 [...] DD/ 0053 ? TD/TT: 02/07/25 0053 ? [employer]: ? Procedure Note Donalexandrater, Image - 02/07/2025 [place] [address] XRay Report Signed Patient: Jennifer Wing#: [id number] : 3Acct:[id number] Age/Sex: 79 / FADM Date: 02/06/25 Loc: HO.ED Attending Dr: Ordering Physician: Jeanne Shen Date of Service: 02/07/25 Procedure(s): XR KUB Accession Number(s): [id number] cc: Jeanne Shen; [facility] CLINICAL HISTORY: pain 1 view abdomen [...] MD in OV> 02/07/2553 DD/ TD/TT: 02/07/2552 [facility] [facility]: [facility] External Provider IMG XR PROCEDURES Edited Result - Final * Culture, Urine, Routine (02/07/2025 12:00 AM EDT) Urine Urine specimen obtained by clean catch procedure / Unknown 02/07/2025 02/07/2025 Comment:UACC Narrative [facility] - 02/08/2025 8:36 AM EDT Urine Culture Report Result Urine Culture 50,000 to 100,000 cfu/ml Urine Culture Mixed bacterial jann characteristic of Urine Culture urogenital contamination. Specimen Source: Urine clean catch Generic External Data Provider LAB MICROBIOLOGY - GENERAL ORDERABLES Final Result [facility] [address] [place] [phone] * (ABNORMAL) Urinalysis, Complete, with Reflex to Culture (02/06/2025 11:50 PM EDT) Color Urine Yellow [facility] Appearance Urine Hazy [facility] PH 6.0 5.0 - 9.0 [facility] Glucose Urine UA Negative Negative mg/dL [facility] Urine Blood Trace Negative [facility] Specific [place] - Urine 1.020 1.005 - 1.025 [facility] Urine Protein Negative Neg-Trace mg/dL [facility] Urine Ketones Negative Negative mg/dL [facility] Nitrite Urine Negative Negative [facility] Leukocyte Esterase Urine Moderate (2+)(A) Negative [facility] RBC Urine 0-2 0 - 2 /HPF [facility] Urine WBC 11-20(A) 0 - 5 /HPF [facility] Urine Squamous Epithelial Cell 6-10 0 - 2 /HPF [facility] Urine Bacteria 2+ None Seen [facility] Hyaline Casts, Urine 0-2 0 - 2 /LPF [facility] 02/06/2025 11:5 0 PM EDT 02/06/2025 11:56 PM EDT Narrative [facility] - 02/07/2025 12:13 AM EDT Urine, Clean Catch Generic External Data Provider LAB URINE ORDERAB LES Final Result Performing Organization Address City/State/[facility] Co de Phone Number [facility] [address] [place] [phone] * POCT Glucose (01/10/2025 11:03 AM [...] the ?? estimation of LDL-C. ?? Jack RAOY et al. JITENDRA. 2013;310(19): 4263-3328 ?? (http://Wordinaire.reportbrain/faq/XPL994) Non-HDL Cholesterol 88 <130 mg/dL (calc) CONVERTED [...] Most Recently Relevant to Health Maintenance Insurance [facility] Member Subscriber Plan / Payer (Ef fective 2009-Present) Name:Noreen Wing Relation to Subscriber:Self Name:Noreen Wing Payer ID:Not on file Group ID:[id number] Type:Not on file Address: [address] [employer] (O D-[employer]) Care Teams Clinical Research Analyst Relationship Specialty Start Date End Date Name, MD Nitin [address] [place], [place] [phone] PCP - General Family Medicine 08/26/17 [facility] 09/01/24
--- OUTSIDE RECORDS SUMMARY | 2025-02-28 11:07 | XMS_ITS | Encounter Summary ---
Author Organization [employer] Address [address] [facility] [address] [place] [address] Care Team Providers Care Hand Tube Winder Name Role Phone Name, Nitin PIKE Primary Care Provider [phone] Encounter Details Date Type Department Care Team ([facility] Contact Info) Description 01/06/2023 Orders Only [facility] [address] [place], [place] [phone] Lisha Kelly LPN Social History Tobacco Use [...] 10:00 AM EDT Office Visit [facility] [address] [place], [place] [phone] NameNitin MD [address] [place] [address] documented as of this encounter Visit Diagnoses Not on filedocumented in this encounter Care Teams Hand Tube Winder Relationship Specialty Start Date End Date NameNitin MD [address] [place] [address] PCP - General Family Medicine 08/26/17 [facility] 09/01/24 documented as of this encounter
--- OUTSIDE RECORDS SUMMARY | 2025-02-28 11:07 | XMS_ITS | Encounter Summary ---
Author Organization [employer] Address [address] [facility] [address] [place] [address] Care Team Providers Care Flue Gas Analyst Name Role Phone Name, Nitin PIKE Primary Care Provider [phone] Reason for Visit * Reason Comments Med Refill Encounter Details Date Type Department Care Team (Late st Contact Info) Description 02/23/2025 Refill [facility] [address] [phone] Name, MD Nitin [address] [place] [address] Vitamin D deficiency Social History Tobacco Use [...] Description 04/29/2025 10:00 AM EDT Office Visit [facility] [address] [place] [phone] NameNitin MD [address] [place] [address] documented as of this encounter Visit Diagnoses Diagnosis Vitamin D deficiency documented in this encounter Additional Health Concerns Assessment Noted Time PHQ-9 Depression Total Score: 6 02/13/20 9:14 AM EDT documented as of this encounter Care Teams Flue Gas Analyst Relationship Specialty Start Date End Date NameNitin MD [address] [place] [phone] PCP - General Family Medicine 08/26/17 [facility] 09/01/24 documented as of this encounter
--- OUTSIDE RECORDS SUMMARY | 2025-02-28 11:07 | XMS_ITS | Encounter Summary ---
Author Organization [employer] Address [address] [facility] [address] [place] [address] Care Team Providers Care Shoveler Name Role Phone Name, Nitin PIKE Primary Care Provider [phone] Reason for Visit * Reason Comments Med Refill Encounter Details Date Type Department Care Team (Late Contact Info) Description 03/02/2023 Refill [facility] [address] [place] [address] Karely Patiño MD [address] [place] [phone] Social History Tobacco Use Types Packs/Day Years [...] Description 04/29/2025 10:00 AM EDT Office Visit [facility] [address] [place] [phone] Wale, MD Nitin [address] [place] [phone] documented as of this encounter Visit Diagnoses Not on filedocumented in this encounter Care Teams Shoveler Relationship Specialty Start Date End Date Name, MD Nitin [address] [place] [address] PCP - General Family Medicine 08/26/17 [facility] 09/01/24 documented as of this encounter
--- OUTSIDE RECORDS SUMMARY | 2025-02-28 11:07 | XMS_ITS | Encounter Summary ---
Author Organization [employer] Address [address] [facility] [address] [place] [address] Care Team Providers Care Patient Scheduling Coordinator Name Role Phone Name, Nitin PIKE Primary Care Provider [phone] Reason for Visit * Reason Onset Date Comments FYI 08/11/2024 Encounter Details Date Type Department Care Team ([facility] st Contact Info) Description 08/11/2024 Telephone [facility] [address] [place], [place] [phone] Name, MD Nitin [address] [place] [address] FYI Social History Tobacco Use Types Packs/Day [...] any questions or concerns contact Darryl at [phone] documented in this encounter Plan of Treatment Upcoming Encounters Date Type Department Care Team ([facility] st Contact Info) Description 04/29/2025 10:00 AM EDT Office Visit [facility] [address] [place] [address] Name, MD Nitin [address] [place] [address] documented as of this encounter Visit Diagnoses Not on filedocumented in this encounter Additional Health Concerns Assessment Noted Time PHQ-9 Depression Total Score: 6 02/13/20 24 9:14 AM EDT documented as of this encounter Care Teams Patient Scheduling Coordinator Relationship Specialty Start Date End Date Name, MD Nitin [address] [place] [address] PCP - General Family Medicine 08/26/17 [facility] 09/01/24 documented as of this encounter
--- OUTSIDE RECORDS SUMMARY | 2025-02-28 11:07 | XMS_ITS | Encounter Summary ---
Author Organization [employer] Address [address] [facility] [address] [place] [address] Care Team Providers Care Wool And Pelt Grader Name Role Phone Name, Nitin PIKE Primary Care Provider [phone] Reason for Visit * Reason Onset Date Comments Verbal Orders 12/15/2023 Encounter Details Date Type Department Care Team ([facility] st Contact Info) Description 12/15/2023 Telephone [facility] 230 [place], [place] [phone] Name, MD Nitin [address] [place] [address] Verbal Orders Social History Tobacco Use Types [...] 12:03 PM EST Tc from [email or web address] requesting verbal order to see pt 2 times a week for 4 weeks for Occupational Therapy, please contact [facility] at [phone] documented in this encounter Plan of Treatment Upcoming Encounters Date Type Department Care Team (Late st Contact Info) Description 04/29/2025 10:00 AM EDT Office Visit [facility] [address] [place] [address] Name, MD Nitin [address] [place] [address] documented as of this encounter Visit Diagnoses Not on filedocumented in this encounter Additional Health Concerns Assessment Noted Time PHQ-9 Depression Total Score: 12 023 9:37 AM EDT documented as of this encounter Care Teams Wool And Pelt Grader Relationship Specialty Start Date End Date NameNitin MD [address] [place] [address] PCP - General Family Medicine 08/26/17 [facility] 09/01/24 documented as of this encounter
--- OUTSIDE RECORDS SUMMARY | 2025-02-28 11:07 | XMS_ITS | Encounter Summary ---
Author Organization [employer] Address 75 [facility] [address] [place] [address] Care Team Providers Care Filterer Name Role Phone Name, Nitin PIKE Primary Care Provider [phone] Encounter Details Date Type Department Care Team ([facility] Contact Info) Description 12/17/2022 Orders Only [facility] MED & PEDS [address] [place], [place] [phone] Lisha Kelly LPN Social History Tobacco Use [...] [facility] [address] [place] [address] NameNitin MD [address] [place] [address] documented as of this encounter Visit Diagnoses Not on filedocumented in this encounter Care Teams Filterer Relationship Specialty Start Date End Date NameNitin MD [address] [place] [address] PCP - General Family Medicine 08/26/17 [facility] 09/01/24 documented as of this encounter
--- OUTSIDE RECORDS SUMMARY | 2025-02-28 11:07 | XMS_ITS | Encounter Summary ---
Author Organization [employer] Address 75 [facility] [address] [place] [address] Care Team Providers Care Room Maid Name Role Phone Name, Nitin PIKE Primary Care Provider [phone] Reason for Visit * Reason Onset Date Comments triage 12/18/2022 Encounter Details Date Type Department Care Team ([facility] st Contact Info) Description 12/18/2022 Telephone [facility] 230 [place], [place] [phone] Name, MD Nitin [address] [place] [address] triage Social History Tobacco Use Types Packs/Day [...] 12/18/2022 2:35 PM EST Called pt. Via [employer] associate professor of violin [phone] Eduardo. Pt. States that she has a [...] phone. Please reach out to pt. With Azerbaijani speaking another time to see what her [...] Description 04/29/2025 10:00 AM EDT Office Visit [facility] [address] [place] [phone] Name, MD Nitin [address] [place] [address] documented as of this encounter Visit Diagnoses Not on filedocumented in this encounter Care Teams Room Maid Relationship Specialty Start Date End Date Name, MD Nitin [address] [place] [address] PCP - General Family Medicine 08/26/17 [facility] 09/01/24 documented as of this encounter
--- OUTSIDE RECORDS SUMMARY | 2025-02-28 11:07 | XMS_ITS | Encounter Summary ---
Author Organization [employer] Address 75 [facility] [address] [place] [address] Care Team Providers Care Cemetery Worker Name Role Phone Name, Nitin PIKE Primary Care Provider [phone] Reason for Visit * Reason Onset Date Comments Durable Medical Equipment 12/09/2023 Encounter Details Date Type Department Care Team ([facility] st Contact Info) Description 12/09/2023 Telephone [facility] 230 [place], [place] [phone] Name, MD Nitin 230 [place], [place] [phone] Durable Medical Equipment Social History Tobacco Use [...] 10:11 AM EST DME rx faxed to [facility] as requested. RN will consult with S nurse and provide referral. * Telephone Encounter - Fozia Jacob RN - 12/09/2023 4:58 PM EST Call returned to [facility] at [facility] [phone] [facility] states that [facility] attempted to provide PT at home but pt refused. [facility] pt is requesting outpatient PT. [facility] pt is seeing a counselor more regularly and has agreed to VNA referral. Reports pt has had 3 falls in the past [address] [facility] states [facility] no longer has visiting nurses. [facility] recommends [facility] or [facility] for VNA referral. [facility] also requesting DME rx for rollator walker and a straight cane. Requests that DME rx be faxed to [phone]. Advised requests will be sent to pcp. * Telephone Encounter - Adithya Solorzano - 12/09/2023 4:25 PM EST Tc from [facility] requesting DME: Rollator walker . documented in this encounter Plan of Treatment Upcoming Encounters Date Type Department Care Team (Late st Contact Info) Description 04/29/2025 10:00 AM EDT Office Visit [facility] [address] [place] [address] Name, MD Nitin [address] [place] [address] documented as of this encounter Visit Diagnoses Not on filedocumented in this encounter Additional Health Concerns Assessment Noted Time PHQ-9 Depression Total Score: 12 023 9:37 AM EDT documented as of this encounter Care Teams Cemetery Worker Relationship Specialty Start Date End Date Name, MD Nitin [address] [place] [address] PCP - General Family Medicine 08/26/17 [facility] 09/01/24 documented as of this encounter
--- OUTSIDE RECORDS SUMMARY | 2025-02-28 11:07 | XMS_ITS | Encounter Summary ---
Author Organization [employer] [facility] Address 75 [facility] [address] [place] [address] Care Team Providers Care In Flight Refueling Craftsman Name Role Phone Name, Nitin PIKE Primary Care Provider [phone] Encounter Details Date Type Department Care Team ([facility] Contact Info) Description 08/08/2023 Telephone [facility] MED[facility]INE [address] [place] [address] [phone] Name, MD Nitin [address] [place] [address] [phone] Social History Tobacco Use Types Packs/Day Years [...] 04/29/2025 10:00 AM EDT Office Visit [facility] [address] [place] [address] [phone] NameNitin MD [address] [place] [address] [phone] documented as of this encounter Visit Diagnoses Not on filedocumented in this encounter Additional Health Concerns Assessment Noted Time PHQ-9 Depression Total Score: 12 023 9:37 AM EDT documented as of this encounter Care Teams In Flight Refueling Craftsman Relationship Specialty Start Date End Date Name, MD Nitin 230 [place] [address] PCP - General Family Medicine 08/26/17 [facility] 09/01/24 documented as of this encounter
--- OUTSIDE RECORDS SUMMARY | 2025-02-28 11:07 | XMS_ITS | Encounter Summary ---
Author Organization [employer] Address [address] [facility] [address] [place] [address] Care Team Providers Care Freight Dispatcher Name Role Phone Name, Nitin PIKE Primary Care Provider [phone] Encounter Details Date Type Department Care Team (Late st Contact Info) Description 11/06/2022 Orders Only [facility] MED & PEDS [address] [place] [address] Lisha Kelly LPN Social History Tobacco Use [...] Description 04/29/2025 10:00 AM EDT Office Visit [facility] 230 [place] [address] NameNitin MD [address] [place] [address] documented as of this encounter Visit Diagnoses Not on filedocumented in this encounter Care Teams Freight Dispatcher Relationship Specialty Start Date End Date Nitin Echevarria MD [address] [place] [address] PCP - General Family Medicine 08/26/17 [facility] 09/01/24 documented as of this encounter
--- OUTSIDE RECORDS SUMMARY | 2025-02-28 11:07 | XMS_ITS | Encounter Summary ---
Author Organization [employer] Address [address] [facility] [address] [place] [address] Care Team Providers Care Lead Recoverer Name Role Phone Name, Nitin PIKE Primary Care Provider Reason for Visit * Reason Comments Med Refill Encounter Details Date Type Department Care Team (Late st Contact Info) Description 01/09/2025 Refill [facility] [address] [place] [address] [phone] Name, MD Nitin [address] [place] [address] Hypertension, unspecified type Social History Tobacco Use [...] Description 04/29/2025 10:00 AM EDT Office Visit [facility] MEDICINE [address] [place] [phone] NameNitin MD [address] [place] [address] documented as of this encounter Visit Diagnoses Diagnosis Hypertension, unspecified type documented in this encounter Additional Health Concerns Assessment Noted Time PHQ-9 Depression Total Score: 6 02/13/20 9:14 AM EDT documented as of this encounter Care Teams Lead Recoverer Relationship Specialty Start Date End Date Name, MD Nitin [address] [place] [address] PCP - General Family Medicine 08/26/17 [facility] 09/01/24 documented as of this encounter
--- OUTSIDE RECORDS SUMMARY | 2025-02-28 11:07 | XMS_ITS | Encounter Summary ---
Author Organization [employer] Address 75 [facility] [address] [place] [address] Care Team Providers Care Small Arms Artillery Repairer Name Role Phone Name, Nitin PIKE Primary Care Provider [phone] Reason for Visit * Reason Onset Date Comments Order(s) 12/09/2023 Encounter Details Date Type Department Care Team ([facility] st Contact Info) Description 12/09/2023 Telephone [facility] MEDICINE 230 [place], [place] [phone] Name, MD Nitin [address] [place], [place] [phone] Order(s) Social History Tobacco Use Types Packs/Day [...] orders. If any questions please contact Noreen [phone]. documented in this encounter Plan of Treatment Upcoming Encounters Date Type Department Care Team (Late st Contact Info) Description 04/29/2025 10:00 AM EDT Office Visit [facility] MEDICINE [address] [place] [phone] Name, MD Nitin [address] [place] [address] documented as of this encounter Visit Diagnoses Not on filedocumented in this encounter Additional Health Concerns Assessment Noted Time PHQ-9 Depression Total Score: 12 023 9:37 AM EDT documented as of this encounter Care Teams Small Arms Artillery Repairer Relationship Specialty Start Date End Date Name, MD Nitin [address] [place] [address] PCP - General Family Medicine 08/26/17 [facility] 09/01/24 documented as of this encounter
--- OUTSIDE RECORDS SUMMARY | 2025-02-28 11:07 | XMS_ITS | Encounter Summary ---
Author Organization [employer] Address 75 [facility] [address] [place] [address] Care Team Providers Care Plant Operator Control Room Operator Name Role Phone Name, Nitin PIKE Primary Care Provider [phone] Reason for Visit * Reason Comments Med Refill Encounter Details Date Type Department Care Team ([facility] st Contact Info) Description 08/16/2024 Refill [facility] CH[facility] MED & PEDS [address] [place], [place] [phone] Name, MD Nitin [address] [place] [address] Heartburn Social History Tobacco Use Types Packs/Day [...] Description 04/29/2025 10:00 AM EDT Office Visit [facility] MEDICINE [address] [place] [address] NameNitin MD 230 [place] [address] documented as of this encounter Visit Diagnoses Diagnosis Heartburn documented in this encounter Additional Health Concerns Assessment Noted Time PHQ-9 Depression Total Score: 6 02/13/20 9:14 AM EDT documented as of this encounter Care Teams Plant Operator Control Room Operator Relationship Specialty Start Date End Date NameNitin MD [address] [place] [address] PCP - General Family Medicine 08/26/17 [facility] 09/01/24 documented as of this encounter
--- OUTSIDE RECORDS SUMMARY | 2025-02-28 11:07 | XMS_ITS | Encounter Summary ---
Author Organization [employer] Address [address] [facility] [address] [place] [address] Care Team Providers Care Technical Stenographer Name Role Phone Name, Nitin PIKE Primary Care Provider [phone] Reason for Visit * Reason Onset Date Comments Verbal Orders 01/02/2024 Encounter Details Date Type Department Care Team ([facility] st Contact Info) Description 01/02/2024 Telephone [facility] MEDICINE 230 [place], [place] [phone] Name, MD Nitin [address] [place] [address] Verbal Orders Social History Tobacco Use Types [...] No answer. LVM to call back on [phone]. * Telephone Encounter - Melany Santos RN - 01/06/2024 10:25 AM EST Please review and advise for below request. * Telephone Encounter - Deana Bazzi - 01/02/2024 3:44 PM EST Tc from [facility] with [facility] requesting verbal orders for discharge pt from Occupational Therapy, due to pt refuses services, please contact [facility] at [phone]. documented in this encounter Plan of Treatment Upcoming Encounters Date Type Department Care Team (Late st Contact Info) Description 04/29/2025 10:00 AM EDT Office Visit [facility] MEDICINE [address] [place] [address] Name, MD Nitin [address] [place] [address] documented as of this encounter Visit Diagnoses Not on filedocumented in this encounter Additional Health Concerns Assessment Noted Time PHQ-9 Depression Total Score: 12 023 9:37 AM EDT documented as of this encounter Care Teams Technical Stenographer Relationship Specialty Start Date End Date Name, MD Nitin [address] [place] [address] PCP - General Family Medicine 08/26/17 [facility] 09/01/24 documented as of this encounter
--- OUTSIDE RECORDS SUMMARY | 2025-02-28 11:07 | XMS_ITS | Encounter Summary ---
Author Organization [employer] Address [address] [facility] [address] [place] [address] Care Team Providers Care Food And Beverage Cashier Name Role Phone Name, Nitin PIKE Primary Care Provider [phone] Reason for Visit * Reason Onset Date Comments FYI 01/21/2024 ER Follow-up 01/21/2024 Encounter Details Date Type Department Care Team ([facility] st Contact Info) Description 01/21/2024 Telephone [facility] MEDICINE 230 [place], [place] [phone] Name, MD Nitin [address] [place] [address] FYI; ER Follow-up Social History Tobacco Use [...] - 01/21/2024 1:54 PM EDT Message from [facility] ED noted. [facility] note sent to medical records. PCP does not rx Trazodone. Pt to f/u with psych prescriber. Pt is scheduled for f/u with pcp 02/13/24. * Telephone Encounter - Janette Huitron - 01/21/2024 9:45 AM EDT Tc from [facility] with [facility] ED calling in regards to pt. States pt was seen today for anxiety and is requesting trazodone. Will discharge pt with no medication change. Would also like to advise provider, pt was seen at [facility] on 01/17 for anxiety/insomnia as well documented in this encounter Plan of Treatment Upcoming Encounters Date Type Department Care Team (Late st Contact Info) Description 04/29/2025 10:00 AM EDT Office Visit [facility] MED[facility]INE [address] [place] [address] Name, MD Nitin [address] [place] [address] documented as of this encounter Visit Diagnoses Not on filedocumented in this encounter Additional Health Concerns Assessment Noted Time PHQ-9 Depression Total Score: 12 023 9:37 AM EDT documented as of this encounter Care Teams Food And Beverage Cashier Relationship Specialty Start Date End Date Name, MD Nitin [address] [place] [address] PCP - General Family Medicine 08/26/17 [facility] 09/01/24 documented as of this encounter
--- NOTE | 2025-02-28 11:12 | ED.GENADULT ---
HPI - General Adult General Chief complaint: Anxiety Stated complaint: ANXIETY,BP 199/90 PER EMS Time Seen by Provider: 02/28/25 11:12 History of Present Illness ED Provider: Ashleigh DUMONT narrative: The patient is an 79-year-old female with a history of an anxiety disorder. She also has a history of frequent emergency room visits. Seems that she is prescribed clonazepam on a weekly basis. She is prescribed 21 tablets of 0.5 mg clonazepam to be used 3 times a day. It seems as though she normally picked up her prescriptions on Mondays. Today is a holiday and so she could not orange picking supervisor her usual clonazepam this morning. She felt anxious and came to the emergency room. Related Data Home Medications ?Medication ?Instructions ?Recorded ?Confirmed mirtazapine 45 mg tablet 45 mg PO BEDTIME 08/09/20 09/29/24 omeprazole 20 mg tablet,delayed 20 mg PO DAILY@0630 08/09/20 09/29/24 release aspirin 81 mg tablet,delayed 81 mg PO QAM 01/28/24 09/29/24 release bisacodyl 5 mg tablet,delayed 5 mg PO DAILY PRN constipation 01/28/24 09/29/24 release diphenhydramine HCl 25 mg tablet 25 mg PO BEDTIME PRN itch 01/28/24 09/29/24 (Lou-Dryl) ferrous sulfate 325 mg (65 mg 325 mg PO DAILY 01/28/24 09/29/24 iron) tablet (FeroSul) melatonin 10 mg tablet,extended 10 mg PO BEDTIME PRN Insomnia 01/28/24 09/29/24 release multivitamin 1 tab PO QAM 01/28/24 09/29/24 rosuvastatin 20 mg tablet 20 mg PO BEDTIME 01/28/24 09/29/24 trazodone 50 mg tablet 50 mg PO BEDTIME 01/28/24 09/29/24 amlodipine 10 mg tablet 10 mg PO DAILY 02/09/24 09/29/24 acetaminophen 500 mg tablet 500 mg PO Q8H PRN pain 08/09/24 09/29/24 ipratropium bromide 21 mcg (0.03 2 spray intranasal BID 08/09/24 09/29/24 %) nasal spray zolpidem 5 mg tablet 5 mg PO BEDTIME PRN Insomnia 08/09/24 09/29/24 cholecalciferol (vitamin D3) 25 25 mcg PO DAILY 08/20/24 09/29/24 mcg (1,000 unit) tablet meclizine 25 mg tablet 25 mg PO DAILY PRN 09/29/24 09/29/24 Previous Rx's ?Medication ?Instructions ?Recorded metoprolol succinate 50 mg 50 mg PO DAILY #90 tabs 09/28/20 tablet,extended release 24 hr fluticasone propionate 50 2 spray intranasal DAILY #16 grams 09/16/23 mcg/actuation nasal spray,suspension (Flonase Allergy Relief) ondansetron 4 mg disintegrating 4 mg PO Q6H PRN nausea and 04/28/24 tablet vomiting #10 tabs hydroxyzine HCl 25 mg tablet 25 mg PO TID PRN anxiety #6 tabs 08/07/24 clonazepam 0.5 mg tablet 0.5 mg PO TID #180 tabs 08/10/24 gabapentin 100 mg capsule 100 mg PO TID #180 caps 08/10/24 hydroxyzine HCl 25 mg tablet 25 mg PO TID PRN anxiety #20 tabs 09/09/24 miconazole nitrate 2 % vaginal 1 appful vaginal BEDTIME 7 days 10/09/24 cream (Monistat 7) #45 grams nitrofurantoin 100 mg PO Q12H 3 days #6 caps 10/09/24 monohydrate/macrocrystals 100 mg capsule (Macrobid) miconazole nitrate 2 % topical 1 appl topical BID #28 grams 01/01/25 cream valsartan 160 mg tablet 160 mg PO DAILY #90 tabs 01/20/25 ofloxacin 0.3 % ear drops 10 drp otic (ears) DAILY 7 days #5 02/01/25 mL docusate sodium 100 mg capsule 200 mg (2 x 100 mg) PO BID #30 caps 02/07/25 (Col-Rite) polyethylene glycol 3350 17 17 g PO Q8H #238 grams 02/07/25 gram/dose oral powder (ClearLax) white petrolatum 41 % topical 1 appl topical BID PRN irritated 02/07/25 ointment (Advanced Healing skin #50 grams (Petrolatum)) azithromycin 250 mg tablet 250 mg PO DAILY 4 days #4 tabs 02/14/25 (Zithromax) docusate sodium 100 mg capsule 200 mg (2 x 100 mg) PO BID #20 caps 02/24/25 (Colace) polyethylene glycol 3350 17 17 g PO BID #119 grams 02/24/25 gram/dose oral powder (Miralax) Allergies Allergy/AdvReac Type Severity Reaction Status Date / Time penicillin G [Penicillin G] Allergy Severe ITCHY/RASH Verified 02/28/25 10:53 Sulfa (Sulfonamide Allergy Severe ITCHY,RASH, Verified 02/28/25 10:53 Antibiotics) rash [Sulfa (Sulfonamides)] trimethoprim [From Bactrim] Allergy Severe HIVES Verified 02/28/25 10:53 Penicillins Allergy Intermediate Hives Verified 02/28/25 10:53 sulfamethoxazole Allergy Mild Hives Verified 02/28/25 10:53 [From Bactrim] Review of Systems Review of Systems: Yes all other systems are reviewed and are negative [facility] Past Medical History 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 She does not seem in acute distress. HENMT Other: Face is symmetrical Eyes General: appearance normal, both eyes and all related structures Neck Neck: Yes full ROM Resp Effort & Inspection: normal respiratory effort Skin General skin exam: no rashes or lesions noted Neuro Other: The patient is awake and alert with a normal mental status. Face is symmetrical. Speech is clear. She moves her extremities symmetrically. Extrem General: Yes no pedal edema Medical Decision Making Medical Decision Making MDM Narrative: The patient is a frequent user of the emergency room for complaints of anxiety. She does not have access to her clonazepam today because this is an unusual holiday. She normally picked up her clonazepam prescriptions on Mondays. She will be given 1 mg of clonazepam (her usual doses 0.5 mg t.i.d.). My hope is that this will tide her over till tomorrow morning when she can orange picking supervisor her prescription. Discharge Plan Discharge Clinical Impression: Anxiety Patient Disposition: Home, Self-Care Additional Instructions: You has been given a dose of clonazepam here today. Please resume your normal use of clonazepam tomorrow when you orange picking supervisor your prescription from the pharmacy tomorrow morning. Follow up with your regular doctor. Prescriptions: No Action metoprolol succinate 50 mg tablet extended release 24 hr 50 mg PO DAILY Qty: 90 2RF valsartan 160 mg tablet 160 mg PO DAILY Qty: 90 1RF mirtazapine 45 mg Tablet 45 mg PO BEDTIME omeprazole 20 mg Tablet,Delayed Release (Dr/Ec) 20 mg PO DAILY@0630 fluticasone propionate [Flonase Allergy Relief] 50 mcg/actuation spray,suspension 2 spray intranasal DAILY Qty: 16 0RF Rx Instructions: administer into each nostril hydroxyzine HCl 25 mg tablet 25 mg PO TID PRN (Reason: anxiety) Qty: 6 0RF hydroxyzine HCl 25 mg tablet 25 mg PO TID PRN (Reason: anxiety) Qty: 20 0RF miconazole nitrate 2 % cream 1 appl topical BID Qty: 28 0RF azithromycin [Zithromax] 250 mg tablet 250 mg PO DAILY 4 Days Qty: 4 0RF Rx Instructions: start on day 2 of therapy trazodone 50 mg tablet 50 mg PO BEDTIME ferrous sulfate [FeroSul] 325 mg (65 mg iron) tablet 325 mg PO DAILY diphenhydramine HCl [Lou-Dryl] 25 mg tablet 25 mg PO BEDTIME PRN (Reason: itch) bisacodyl 5 mg tablet,delayed release (DR/EC) 5 mg PO DAILY PRN (Reason: constipation) rosuvastatin 20 mg tablet 20 mg PO BEDTIME aspirin 81 mg tablet,delayed release (DR/EC) 81 mg PO QAM multivitamin Tablet 1 tab PO QAM melatonin 10 mg tablet extended release 10 mg PO BEDTIME PRN (Reason: Insomnia) cholecalciferol (vitamin D3) 25 mcg (1,000 unit) tablet 25 mcg PO DAILY ondansetron 4 mg tablet,disintegrating 4 mg PO Q6H PRN (Reason: nausea and vomiting) Qty: 10 0RF acetaminophen 500 mg tablet 500 mg PO Q8H PRN (Reason: pain) zolpidem 5 mg tablet 5 mg PO BEDTIME PRN (Reason: Insomnia) ipratropium bromide 21 mcg (0.03 %) spray,non-aerosol 2 spray intranasal BID clonazepam 0.5 mg Tablet 0.5 mg PO TID Qty: 180 0RF gabapentin 100 mg Capsule 100 mg PO TID Qty: 180 0RF nitrofurantoin monohyd/m-cryst [Macrobid] 100 mg capsule 100 mg PO Q12H 3 Days Qty: 6 0RF Rx Instructions: must administer with a meal/food miconazole nitrate [Monistat 7] 2 % cream 1 appful vaginal BEDTIME 7 Days Qty: 45 0RF ofloxacin 0.3 % drops 10 drp otic (ears) DAILY 7 Days Qty: 5 0RF docusate sodium [Col-Rite] 100 mg capsule 200 mg PO BID Qty: 30 0RF polyethylene glycol 3350 [ClearLax] 17 gram/dose powder 17 g PO Q8H Qty: 238 0RF Advanced Healing (Petrolatum) 41 % ointment 1 appl topical BID PRN (Reason: irritated skin) Qty: 50 0RF docusate sodium [Colace] 100 mg capsule 200 mg PO BID Qty: 20 0RF polyethylene glycol 3350 [Miralax] 17 gram/dose powder 17 g PO BID Qty: 119 0RF amlodipine 10 mg tablet 10 mg PO DAILY meclizine 25 mg tablet 25 mg PO DAILY PRN Print Language: Choose Not To Answer
--- NOTE | 2025-02-28 11:22 | PC.NURSE ---
Pt's regular pharmacy is closed today secondary to holiday; pt and MD made aware
[2025-02-28 11:43] VITALS: BP 148/84; PULSE 107; RESP 17; O2SAT 97
[2025-02-28] MEDS: clonazePAM 1 MG TABLET PO (11:48)
[2025-02-28 11:53] VITALS: BP 148/84; PULSE 99; RESP 17; TEMP 37.1; O2SAT 97
== END 2025-02-28 11:58 | disposition home or self-care (01) ==
PROVIDERS: Emergency Provider Emergency Medicine
DX: F41.9 Anxiety disorder, unspecified (principal); R00.0 Tachycardia, unspecified; I10 Essential (primary) hypertension; Z79.899 Other long term (current) drug therapy
CPT/HCPCS: 93005; 99283

== ENCOUNTER → 2025-02-28 11:04 | Outpatient (BNV) | payer OTHER, SELFPAY | PROVIDERS: Emergency Provider Emergency Medicine; Visit Provider Internal Medicine | DX: R00.0 Tachycardia, unspecified (principal); I51.7 Cardiomegaly | CPT/HCPCS: 93010 ==

== ENCOUNTER 2025-02-28 22:36 | Emergency (ER) | payer OTHER, SELFPAY ==
[2025-02-28 22:42] VITALS: BP 178/90; PULSE 85; O2SAT 99
[2025-02-28 22:50] VITALS: BP 143/80; PULSE 79; RESP 16; TEMP 37.7; O2SAT 98; BMI 32.3
[2025-03-01 00:56] VITALS: BP 153/73; PULSE 88; RESP 18; O2SAT 96
--- NOTE | 2025-03-01 00:58 | PC.NURSE ---
PT c/o increasing anxiety, requesting vitals, vitals taken, WNL. Assured patient she will be called when room is available for her
[2025-03-01 01:53] VITALS: BP 159/83; PULSE 78; RESP 16; TEMP 37.3; O2SAT 98
--- NOTE | 2025-03-01 01:53 | ED_ITS ---
HPI - General Adult General Chief complaint: General Medical Stated complaint: high BP unable to get meds today Time Seen by Provider: 03/01/25 01:31 Source: patient Mode of arrival: ambulatory Limitations: no limitations History of Present Illness ED Provider: Evita Jeff NP HPI narrative: Patient is an 79-year-old female who presents emergency department for evaluation, she states that she is having a panic attack and is requesting to be dosed with clonazepam. She expresses a lot of stress surrounding other individuals living in apartments near her. She states that she has not taken her clonazepam all day as she did not have her prescription due to the holiday. She feels that due to her anxiety at this time this is what is elevating her blood pressure, but she also did not take her blood pressure medication today. She offers no additional complaints at this time Related Data Home Medications ?Medication ?Instructions ?Recorded ?Confirmed mirtazapine 45 mg tablet 45 mg PO BEDTIME 08/09/20 09/29/24 omeprazole 20 mg tablet,delayed 20 mg PO DAILY@0630 08/09/20 09/29/24 release aspirin 81 mg tablet,delayed 81 mg PO QAM 01/28/24 09/29/24 release bisacodyl 5 mg tablet,delayed 5 mg PO DAILY PRN constipation 01/28/24 09/29/24 release diphenhydramine HCl 25 mg tablet 25 mg PO BEDTIME PRN itch 01/28/24 09/29/24 (Lou-Dryl) ferrous sulfate 325 mg (65 mg 325 mg PO DAILY 01/28/24 09/29/24 iron) tablet (FeroSul) melatonin 10 mg tablet,extended 10 mg PO BEDTIME PRN Insomnia 01/28/24 09/29/24 release multivitamin 1 tab PO QAM 01/28/24 09/29/24 rosuvastatin 20 mg tablet 20 mg PO BEDTIME 01/28/24 09/29/24 trazodone 50 mg tablet 50 mg PO BEDTIME 01/28/24 09/29/24 amlodipine 10 mg tablet 10 mg PO DAILY 02/09/24 09/29/24 acetaminophen 500 mg tablet 500 mg PO Q8H PRN pain 08/09/24 09/29/24 ipratropium bromide 21 mcg (0.03 2 spray intranasal BID 08/09/24 09/29/24 %) nasal spray zolpidem 5 mg tablet 5 mg PO BEDTIME PRN Insomnia 08/09/24 09/29/24 cholecalciferol (vitamin D3) 25 25 mcg PO DAILY 08/20/24 09/29/24 mcg (1,000 unit) tablet meclizine 25 mg tablet 25 mg PO DAILY PRN 09/29/24 09/29/24 Previous Rx's ?Medication ?Instructions ?Recorded metoprolol succinate 50 mg 50 mg PO DAILY #90 tabs 09/28/20 tablet,extended release 24 hr fluticasone propionate 50 2 spray intranasal DAILY #16 grams 09/16/23 mcg/actuation nasal spray,suspension (Flonase Allergy Relief) ondansetron 4 mg disintegrating 4 mg PO Q6H PRN nausea and 04/28/24 tablet vomiting #10 tabs hydroxyzine HCl 25 mg tablet 25 mg PO TID PRN anxiety #6 tabs 08/07/24 clonazepam 0.5 mg tablet 0.5 mg PO TID #180 tabs 08/10/24 gabapentin 100 mg capsule 100 mg PO TID #180 caps 08/10/24 hydroxyzine HCl 25 mg tablet 25 mg PO TID PRN anxiety #20 tabs 09/09/24 miconazole nitrate 2 % vaginal 1 appful vaginal BEDTIME 7 days 10/09/24 cream (Monistat 7) #45 grams nitrofurantoin 100 mg PO Q12H 3 days #6 caps 10/09/24 monohydrate/macrocrystals 100 mg capsule (Macrobid) miconazole nitrate 2 % topical 1 appl topical BID #28 grams 01/01/25 cream valsartan 160 mg tablet 160 mg PO DAILY #90 tabs 01/20/25 ofloxacin 0.3 % ear drops 10 drp otic (ears) DAILY 7 days #5 02/01/25 mL docusate sodium 100 mg capsule 200 mg (2 x 100 mg) PO BID #30 caps 02/07/25 (Col-Rite) polyethylene glycol 3350 17 17 g PO Q8H #238 grams 02/07/25 gram/dose oral powder (ClearLax) white petrolatum 41 % topical 1 appl topical BID PRN irritated 02/07/25 ointment (Advanced Healing skin #50 grams (Petrolatum)) azithromycin 250 mg tablet 250 mg PO DAILY 4 days #4 tabs 02/14/25 (Zithromax) docusate sodium 100 mg capsule 200 mg (2 x 100 mg) PO BID #20 caps 02/24/25 (Colace) polyethylene glycol 3350 17 17 g PO BID #119 grams 02/24/25 gram/dose oral powder (Miralax) Allergies Allergy/AdvReac Type Severity Reaction Status Date / Time penicillin G [Penicillin G] Allergy Severe ITCHY/RASH Verified 02/28/25 22:52 Sulfa (Sulfonamide Allergy Severe ITCHY,RASH, Verified 02/28/25 22:52 Antibiotics) rash [Sulfa (Sulfonamides)] trimethoprim [From Bactrim] Allergy Severe HIVES Verified 02/28/25 22:52 Penicillins Allergy Intermediate Hives Verified 02/28/25 22:52 sulfamethoxazole Allergy Mild Hives Verified 02/28/25 22:52 [From Bactrim] Review of Systems Review of Systems: Yes all other systems are reviewed and are negative PMFSH Past Medical History Attestation statement: The following information was validated with the patient. 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) Unable to assess alcohol history related to: Unknown Alcohol intake: never Patient Tobacco Use Status: Never used Tobacco Advance Directives: Yes Advance Directives on File: Yes Advance Directives Date on File: 01/28/24 service: No Physical Exam ED Vital Signs: Vital Signs - 24 hr 02/28/25 22:50 03/01/25 00:56 03/01/25 01:53 Temperature 99.9 F 99.1 F Pulse Rate 79 88 78 Respiratory Rate 16 18 16 Blood Pressure 143/80 H 153/73 H 159/83 H Pulse Oximetry 98 96 98 Oxygen Delivery Method Room Air Room Air Room Air 03/01/25 02:41 Temperature 99.1 F Pulse Rate 78 Respiratory Rate 16 Blood Pressure 159/83 H Pulse Oximetry 98 Oxygen Delivery Method Room Air BMI result Body Mass Index 32.3 Appearance: Alert.?Oriented to person, place and time. No acute distress.?Normal affect. Eyes: Pupils equal, round and reactive to light.? CVS: Heart sounds normal. Normal heart rate and rhythm.? Pulses normal.?? Respiratory: No respiratory distress.? Lung sounds clear to auscultation bilaterally?? Skin: Skin warm and dry.? Normal skin color.? Extremities: No lower extremity edema.? Neuro: Moves all extremities spontaneously. Sensation intact bilaterally. No focal neuro deficits. Ambulates with normal steady gait. Medications Administered Discontinued Medications Generic Name Dose Route Start Last Admin Trade Name Freq PRN Reason Stop Dose Admin Amlodipine Besylate 10 mg 03/01/25 01:44 03/01/25 02:37 Amlodipine Besylate 10 Mg Tablet PO 03/01/25 01:45 10 mg ONCE ONE Administration Protocol Hydroxyzine HCl 25 mg 03/01/25 02:21 03/01/25 02:37 Hydroxyzine Hcl 25 Mg Tablet PO 03/01/25 02:22 25 mg ONCE ONE Administration Medical Decision Making Medical Decision Making [facility] Narrative: Patient is an 79-year-old female past medical history of hypertension, hypernatremia, SVT, anxiety, 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 I reviewed with her non medicinal techniques of relieving her anxiety, but she is not interested in performing these techniques. She was seen in the emergency department in the afternoon yesterday 02/28/2025 there which time she was given clonazepam 1 mg orally, her typical doses 0.5 mg TID, this was given to her in hopes to hold her over till the morning when she receives her routine scheduled medication/prescription. She was additionally seen in the emergency d epartment dispatcher service chief of 02/28/2025 at which time she received lorazepam 0.5 mg. I reviewed with her at length, not advise additional benzodiazepine at this time. 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 She does additionally take hydroxyzine as needed for anxiety, I have offered that to her here in addition to her amlodipine she is very concerned about her blood pressure. Differential Diagnosis Differential Diagnoses: The differential diagnosis associated with the presentation includes External Record Review External record reviewed: Outpatient record Chronic Conditions Patient?s care impacted by: Other (See narrative above) Discharge Plan Discharge Clinical Impression: Generalized anxiety disorder with panic attacks Patient Disposition: Home, Self-Care Instructions: Anxiety (ED) Additional Instructions: Follow-up with your primary care doctor, regarding your prescription for clonazepam you should pick this up from the pharmacy first thing in the morning You received a dose of your hydroxyzine in the emergency department as well as your amlodipine. Prescriptions: No Action metoprolol succinate 50 mg tablet extended release 24 hr 50 mg PO DAILY Qty: 90 2RF valsartan 160 mg tablet 160 mg PO DAILY Qty: 90 1RF mirtazapine 45 mg Tablet 45 mg PO BEDTIME omeprazole 20 mg Tablet,Delayed Release (Dr/Ec) 20 mg PO DAILY@0630 fluticasone propionate [Flonase Allergy Relief] 50 mcg/actuation spray,suspension 2 spray intranasal DAILY Qty: 16 0RF Rx Instructions: administer into each nostril hydroxyzine HCl 25 mg tablet 25 mg PO TID PRN (Reason: anxiety) Qty: 6 0RF hydroxyzine HCl 25 mg tablet 25 mg PO TID PRN (Reason: anxiety) Qty: 20 0RF miconazole nitrate 2 % cream 1 appl topical BID Qty: 28 0RF azithromycin [Zithromax] 250 mg tablet 250 mg PO DAILY 4 Days Qty: 4 0RF Rx Instructions: start on day 2 of therapy trazodone 50 mg tablet 50 mg PO BEDTIME ferrous sulfate [FeroSul] 325 mg (65 mg iron) tablet 325 mg PO DAILY diphenhydramine HCl [Lou-Dryl] 25 mg tablet 25 mg PO BEDTIME PRN (Reason: itch) bisacodyl 5 mg tablet,delayed release (DR/EC) 5 mg PO DAILY PRN (Reason: constipation) rosuvastatin 20 mg tablet 20 mg PO BEDTIME aspirin 81 mg tablet,delayed release (DR/EC) 81 mg PO QAM multivitamin Tablet 1 tab PO QAM melatonin 10 mg tablet extended release 10 mg PO BEDTIME PRN (Reason: Insomnia) cholecalciferol (vitamin D3) 25 mcg (1,000 unit) tablet 25 mcg PO DAILY ondansetron 4 mg tablet,disintegrating 4 mg PO Q6H PRN (Reason: nausea and vomiting) Qty: 10 0RF acetaminophen 500 mg tablet 500 mg PO Q8H PRN (Reason: pain) zolpidem 5 mg tablet 5 mg PO BEDTIME PRN (Reason: Insomnia) ipratropium bromide 21 mcg (0.03 %) spray,non-aerosol 2 spray intranasal BID clonazepam 0.5 mg Tablet 0.5 mg PO TID Qty: 180 0RF gabapentin 100 mg Capsule 100 mg PO TID Qty: 180 0RF nitrofurantoin monohyd/m-cryst [Macrobid] 100 mg capsule 100 mg PO Q12H 3 Days Qty: 6 0RF Rx Instructions: must administer with a meal/food miconazole nitrate [Monistat 7] 2 % cream 1 appful vaginal BEDTIME 7 Days Qty: 45 0RF ofloxacin 0.3 % drops 10 drp otic (ears) DAILY 7 Days Qty: 5 0RF docusate sodium [Col-Rite] 100 mg capsule 200 mg PO BID Qty: 30 0RF polyethylene glycol 3350 [ClearLax] 17 gram/dose powder 17 g PO Q8H Qty: 238 0RF Advanced Healing (Petrolatum) 41 % ointment 1 appl topical BID PRN (Reason: irritated skin) Qty: 50 0RF docusate sodium [Colace] 100 mg capsule 200 mg PO BID Qty: 20 0RF polyethylene glycol 3350 [Miralax] 17 gram/dose powder 17 g PO BID Qty: 119 0RF amlodipine 10 mg tablet 10 mg PO DAILY meclizine 25 mg tablet 25 mg PO DAILY PRN Interventions: ED Discharge Assessment Last Done: 03/01/25 02:41 Discharge Date/Time: 03/01/25 05:34 Print Language: Choose Not To Answer
[2025-03-01] MEDS: hydrOXYzine HCL 25 MG TABLET PO (02:37)
[2025-03-01] MEDS: amLODIPine Besylate 10 MG TABLET PO (02:37)
[2025-03-01 02:41] VITALS: BP 159/83; PULSE 78; RESP 16; TEMP 37.3; O2SAT 98
== END 2025-03-01 05:34 | disposition home or self-care (01) ==
PROVIDERS: Emergency Provider Emergency Medicine
DX: F41.0 Panic disorder [episodic paroxysmal anxiety] (principal); F41.1 Generalized anxiety disorder; F43.0 Acute stress reaction; Z79.899 Other long term (current) drug therapy
CPT/HCPCS: 99283; 99284

== ENCOUNTER 2025-03-01 07:36 | Emergency (ER) | payer OTHER, SELFPAY ==
--- OUTSIDE RECORDS SUMMARY | 2025-03-01 07:51 | XMS_ITS | Encounter Summary ---
Author Organization [employer] Address [address] [place] [address] Care Team Providers Care Network Cable Installer Name Role Phone Name, Nitin PIKE Primary Care Provider [phone] Reason for Visit * Reason Onset Date Comments Hospital Follow-up 10/20/2024 Encounter Details Date Type Department Care Team ([facility] st Contact Info) Description 10/20/2024 Telephone [facility] [address] [place], [place] [id number] Name, MD Nitin [address] [place] [address] Hospital Follow-up Social History Tobacco Use Types [...] the past 12 months, has t he [employer], gas, oil or water company threatened to [...] Miscellaneous Notes * Telephone Encounter - Dheeraj aPlacio - 10/20/2024 3:52 PM EST Tc from pt requesting a HDF appt. Hospital: [facility] Date of admission: 10/17 Discharge date: 10/19 Diagnosed: High Blood Pressure and Fever Contact pt at [phone] *Send message to [place] Clinical Care Coordinators documented in this encounter Plan of Treatment Upcoming Encounters Date Type Department Care Team (Late st Contact Info) Description 04/29/2025 10:00 AM EDT Office Visit [facility] [address] [place] [id number] Name, MD Nitin [address] [place] [address] documented as of this encounter Visit Diagnoses Not on filedocumented in this encounter Additional Health Concerns Assessment Noted Time PHQ-9 Depression Total Score: 6 02/13/20 24 9:14 AM EDT documented as of this encounter Care Teams Network Cable Installer Relationship Specialty Start Date End Date Name, MD Nitin [address] [place] [address] PCP - General Family Medicine 08/26/17 [facility] 09/01/24 documented as of this encounter
--- OUTSIDE RECORDS SUMMARY | 2025-03-01 07:51 | XMS_ITS | Clinical Summary ---
Author Organization [facility] Address [address] [place] [address] Phone Care Team Providers Care Primer Expeditor And Drier Name Role Phone Physician, No Pcp Primary [...] Final Resul t [facility] [address] [place] [address], from Last 3 Months or Most Recently Relevant to Health Maintenance Insurance [facility] Member Subscriber Plan / Payer (Ef fective 2021-Present) Name:WingNoreen garcia Relation to Subscriber:Self Name:WingNoreen garcia Payer ID:[id number] Group ID:[id number] Type:Not on file Address: [facility] [address] [id number] Care Teams Primer Expeditor And Drier Relationship Specialty Start Date End Date Physician, No Pcp PCP - General 09/22/24
--- OUTSIDE RECORDS SUMMARY | 2025-03-01 07:51 | XMS_ITS | Encounter Summary ---
Author Organization [employer] Address 75 [facility] 7t [place] [address] Care Team Providers Care Annealer Helper Name Role Phone Name, Nitin PIKE Primary Care Provider [phone] Reason for Visit * Reason Onset Date Comments ER Follow-up 05/04/2024 Encounter Details Date Type Department Care Team ([facility] st Contact Info) Description 05/04/2024 Telephone [facility] [address] [place], [place] [phone] Name, MD Nitin 230 [place] [address] ER Follow-up Social History Tobacco Use Types [...] 11:01 AM EDT T/C to pt. Through [employer] id - [id number] for below message, No answer. LVM to call back [phone] . * Telephone Encounter - Adithya Solorzano - 05/04/2024 9:35 AM EDT Noreen with [facility] calling to report ED visit on : Date: 04/28 Hospital: [facility] Seen for: UTI, Nausea, Rash. Noreen advised will be forwarding message to team nurses. Please contact pt at [phone]. documented in this encounter Plan of Treatment Upcoming Encounters Date Type Department Care Team (Late st Contact Info) Description 04/29/2025 10:00 AM EDT Office Visit [facility] [address] [place] [address] Name, MD Nitin [address] [place] [address] documented as of this encounter Visit Diagnoses Not on filedocumented in this encounter Additional Health Concerns Assessment Noted Time PHQ-9 Depression Total Score: 6 02/13/20 24 9:14 AM EDT documented as of this encounter Care Teams Annealer Helper Relationship Specialty Start Date End Date Name, MD Nitin [address] [place] [address] PCP - General Family Medicine 08/26/17 [facility] 09/01/24 documented as of this encounter
--- OUTSIDE RECORDS SUMMARY | 2025-03-01 07:51 | XMS_ITS | Clinical Summary ---
Author Organization [facility] Facility Address [address] [address] Care Team Providers Care New Client Banking Services Clerk Name Role Phone Name, Nitin PIKE Primary Care Provider [phone] Allergies Active Allergy Reactions Criticality Noted Date [...] patient's age to complete this topic [place] [address] MCR ([id number]) SARA PHILLIPS [id number] [facility] MCR ([id number]) Care Teams New Client Banking Services Clerk Relationship Specialty Start Date End Date Name, MD Nitin [address] [place] [address] PCP - General Internal Medicine 10/15/22
--- OUTSIDE RECORDS SUMMARY | 2025-03-01 07:51 | XMS_ITS | Encounter Summary ---
Author Organization [employer] Address [address] [facility] 7[address] [place] [address] Care Team Providers Care Manufacturing Director Name Role Phone NameNitin MD Primary Care Provider Encounter Details Date Type Department Care Team (Late st Contact Info) Description 05/26/[address] [facility] [address] [place] [address] [phone] Noreen Fox MD [address] [place] [address] [phone] Social History Tobacco Use Types Packs/Day Years [...] Description 04/29/2025 10:00 AM EDT Office [facility] [address] [place] [address] [phone] Name, MD Nitin 230 [place] [address] documented as of this encounter Visit Diagnoses Not on filedocumented in this encounter Care Teams Manufacturing Director Relationship Specialty Start Date End Date Name, MD Nitin [address] [place] [address] PCP - General Family Medicine 08/26/17 [facility] 09/01/24 documented as of this encounter
--- OUTSIDE RECORDS SUMMARY | 2025-03-01 07:51 | XMS_ITS | Encounter Summary ---
Author Organization [employer] Address 75 [facility] 7t [place] [address] Care Team Providers Care Dealership General Manager Name Role Phone Name, Nitin PIKE Primary Care Provider [phone] Reason for Visit * Reason Onset Date Comments Results 08/29/2023 Encounter Details Date Type Department Care Team ([facility] st Contact Info) Description 08/29/2023 Telephone [facility]INE 230 [place], [place] [phone] Name, MD Nitin 230 [place] [address] Results Social History Tobacco Use Types Packs/Day [...] 09/01/2023 11:51 AM EDT Pt evaluated in [facility] today and is scheduled with pcp 09/03/23. * Telephone Encounter - Janette Huitron - 08/29/2023 4:06 PM EDT Tc from pt requesting a call in regards to urine results. Please contact pt at [phone] (Kyrgyz) documented in this encounter Plan of Treatment Upcoming Encounters Date Type Department Care Team (Late st Contact Info) Description 04/29/2025 10:00 AM EDT Office Visit [facility] MED[facility]INE [address] [place] [address] Name, MD Nitin [address] [place] [address] documented as of this encounter Visit Diagnoses Not on filedocumented in this encounter Additional Health Concerns Assessment Noted Time PHQ-9 Depression Total Score: 12 023 9:37 AM EDT documented as of this encounter Care Teams Dealership General Manager Relationship Specialty Start Date End Date NameNitin MD [address] [place] [address] PCP - General Family Medicine 08/26/17 [facility] 09/01/24 documented as of this encounter
--- OUTSIDE RECORDS SUMMARY | 2025-03-01 07:51 | XMS_ITS | Encounter Summary ---
Author Organization [employer] Address 75 [facility] 7t [place] [address] Care Team Providers Care Assistant Child Care Teacher Name Role Phone Name, Nitin PIKE Primary Care Provider [phone] Reason for Visit * Reason Comments Med Refill Encounter Details Date Type Department Care Team ([facility] st Contact Info) Description 06/28/2024 Refill [facility] 230 [place], [place] [phone] Mel Anguiano FNP 230 [place] [address] Social History Tobacco Use Types Packs/Day Years [...] Description 04/29/2025 10:00 AM EDT Office Visit [facility] 230 [place] [address] Name, MD Nitin 230 [place] [address] documented as of this encounter Visit Diagnoses Not on filedocumented in this encounter Additional Health Concerns Assessment Noted Time PHQ-9 Depression Total Score: 6 02/13/20 9:14 AM EDT documented as of this encounter Care Teams Assistant Child Care Teacher Relationship Specialty Start Date End Date Name, MD Nitin 230 [place] [address] PCP - General Family Medicine 08/26/17 [facility] 09/01/24 documented as of this encounter
--- OUTSIDE RECORDS SUMMARY | 2025-03-01 07:51 | XMS_ITS | Encounter Summary ---
Author Organization [employer] Address [address] [facility] 7[address] [place] [address] Care Team Providers Care Wire Wrapping Machine Operator Name Role Phone Name, Nitin PIKE Primary Care Provider [phone] Reason for Visit * Reason Onset Date Comments ER Follow-up 05/31/2024 Encounter Details Date Type Department Care Team ([facility] st Contact Info) Description 05/31/2024 Telephone [facility] MEDICINE 230 [place], [place] [phone] Name, MD Nitin 230 [place] [address] ER Follow-up Social History Tobacco Use Types [...] 05/31/2024 1:36 PM EDT T/C to Pat ([facility]) [phone] for below message, no answer. LVM to call back on [phone]. * Telephone Encounter - Melany Santos RN - 05/31/2024 1:32 PM EDT DAVID T/C to pt. Through [employer] id - [id number] for below message, pt. Had recent fall and ED visit at [facility]. RN will request GRACE piedra from [facility]. Pt. Is doing good, states I am tired andsleeping. Pt. Dose not has any question or concern right now. Pt. Already has HDF apt. Schedule on 06/10/2024. Pt. Advised to give call to [facility] if any questions or concerns. [...] Description 04/29/2025 10:00 AM EDT Office Visit [facility] 230 [place] [address] Name, MD Nitin [address] [place] [address] documented as of this encounter Visit Diagnoses Not on filedocumented in this encounter Additional Health Concerns Assessment Noted Time PHQ-9 Depression Total Score: 6 02/13/20 24 9:14 AM EDT documented as of this encounter Care Teams Wire Wrapping Machine Operator Relationship Specialty Start Date End Date Name, MD Nitin [address] [place] [address] PCP - General Family Medicine 08/26/17 [facility] 09/01/24 documented as of this encounter
--- OUTSIDE RECORDS SUMMARY | 2025-03-01 07:51 | XMS_ITS | Encounter Summary ---
Author Organization [employer] Address 75 [facility] 7t [place] [address] Care Team Providers Care Machine Coremaker Name Role Phone Name, Nitin PIKE Primary Care Provider [phone] Reason for Visit * Reason Comments Med Refill Encounter Details Date Type Department Care Team ([facility] st Contact Info) Description 04/01/[address] [facility] MED[facility] [address] [place], [place] [phone] Name, MD Nitin 230 [place] [address] Rash Social History Tobacco Use Types Packs/Day [...] Description 04/29/2025 10:00 AM EDT Office Visit [facility] MED[facility] [address] [place] [address] Name, MD Nitin [address] [place] [address] documented as of this encounter Visit Diagnoses Diagnosis Rash Rash and other nonspecific skin eruption documented in this encounter Additional Health Concerns Assessment Noted Time PHQ-9 Depression Total Score: 6 02/13/20 9:14 AM EDT documented as of this encounter Care Teams Machine Coremaker Relationship Specialty Start Date End Date NameNitin MD [address] [place] [address] PCP - General Family Medicine 08/26/17 [facility] 09/01/24 documented as of this encounter
--- OUTSIDE RECORDS SUMMARY | 2025-03-01 07:51 | XMS_ITS | Encounter Summary ---
Author Organization [employer] Address 75 [facility] 7[address] [place] [address] Care Team Providers Care Stripe Marker Name Role Phone Name, Nitin PIKE Primary Care Provider [phone] Reason for Visit * Reason Onset Date Comments Med Refill 11/08/2024 Encounter Details Date Type Department Care Team ([facility] st Contact Info) Description 11/08/2024 Telephone [facility] 230 [place], [place] [phone] Name, MD Nitin 230 [place] [address] Med Refill Social History Tobacco Use Types [...] 5 MG tablet To be sent to: [facility] - [place], [place] - [address] [facility] documented in this encounter Plan of Treatment Upcoming Encounters Date Type Department Care Team ([facility] st Contact Info) Description 04/29/2025 10:00 AM EDT Office Visit [facility] 230 [place] [address] Name, MD Nitin 230 [place] [address] documented as of this encounter Visit Diagnoses Not on filedocumented in this encounter Additional Health Concerns Assessment Noted Time PHQ-9 Depression Total Score: 6 02/13/20 24 9:14 AM EDT documented as of this encounter Care Teams Stripe Marker Relationship Specialty Start Date End Date Name, MD Nitin 230 [place] [address] PCP - General Family Medicine 08/26/17 [facility] 09/01/24 documented as of this encounter
--- OUTSIDE RECORDS SUMMARY | 2025-03-01 07:52 | XMS_ITS | Encounter Summary ---
Author Organization [employer] Address 75 [facility] 7t [place] [address] Care Team Providers Care Paraplanner Name Role Phone Name, Nitin PIKE Primary Care Provider [phone] Reason for Visit * Reason Onset Date Comments Verbal Orders 01/02/2024 Encounter Details Date Type Department Care Team ([facility] st Contact Info) Description 01/02/2024 Telephone [facility] 230 [place], [place] [phone] Name, MD Nitin 230 [place] [address] Verbal Orders Social History Tobacco Use Types [...] No answer. LVM to call back on [phone]. * Telephone Encounter - Melany Santos RN - 01/06/2024 10:25 AM EST Please review and advise for below request. * Telephone Encounter - Deana Bazzi - 01/02/2024 3:44 PM EST Tc from [facility] with S requesting verbal orders for discharge pt from Occupational Therapy, due to pt refuses services, please contact [employer] at [phone]. documented in this encounter Plan of Treatment Upcoming Encounters Date Type Department Care Team (Late st Contact Info) Description 04/29/2025 10:00 AM EDT Office Visit [facility] MED[facility] [address] [place] [address] Name, MD Nitin 230 [place] [address] documented as of this encounter Visit Diagnoses Not on filedocumented in this encounter Additional Health Concerns Assessment Noted Time PHQ-9 Depression Total Score: 12 023 9:37 AM EDT documented as of this encounter Care Teams Paraplanner Relationship Specialty Start Date End Date Name, MD Nitin [address] [place] [address] PCP - General Family Medicine 08/26/17 [facility] 09/01/24 documented as of this encounter
--- OUTSIDE RECORDS SUMMARY | 2025-03-01 07:52 | XMS_ITS | Encounter Summary ---
Author Organization [employer] Address 75 [facility] 7t [place] [address] Care Team Providers Care Rivet Sorter Name Role Phone Name, Nitin PIKE Primary Care Provider Reason for Visit * Reason Onset Date Comments FYI 08/11/2024 Encounter Details Date Type Department Care Team ([facility] st Contact Info) Description 08/11/2024 Telephone [facility] MEDIC[facility] 230 [place], [place] [phone] Name, MD Nitin 230 [place] [address] FYI Social History Tobacco Use Types Packs/Day [...] is your housing situation today? I have calus rawls 06/14/[address] you [...] any questions or concerns contact Darryl at [phone] documented in this encounter Plan of Treatment Upcoming Encounters Date Type Department Care Team ([facility] st Contact Info) Description 04/29/2025 10:00 AM EDT Office Visit [facility] MEDICINE 230 [place] [address] Name, MD Nitin 230 [place] [address] documented as of this encounter Visit Diagnoses Not on filedocumented in this encounter Additional Health Concerns Assessment Noted Time PHQ-9 Depression Total Score: 6 02/13/20 24 9:14 AM EDT documented as of this encounter Care Teams Rivet Sorter Relationship Specialty Start Date End Date Name, MD Nitin 230 [place] [address] PCP - General Family Medicine 08/26/17 [facility] 09/01/24 documented as of this encounter
--- OUTSIDE RECORDS SUMMARY | 2025-03-01 07:52 | XMS_ITS | Encounter Summary ---
Author Organization [employer] Address 75 [facility] 7t [place] [address] Care Team Providers Care Product Support Sales Representative Name Role Phone Name, Nitin PIKE Primary Care Provider [phone] Reason for Visit * Reason Onset Date Comments triage 12/18/2022 Encounter Details Date Type Department Care Team ([facility] st Contact Info) Description 12/18/2022 Telephone [facility] 230 [place], [place] [phone] Name, MD Nitin 230 [place] [address] triage Social History Tobacco Use Types Packs/Day [...] 12/18/2022 2:35 PM EST Called pt. Via [employer] environmental consultant [phone] Eduardo. Pt. States that she has a [...] phone. Please reach out to pt. With [place] speaking another time to see what her [...] Description 04/29/2025 10:00 AM EDT Office Visit [facility] [address] [place] [address] Name, MD Nitin 230 [place] [address] documented as of this encounter Visit Diagnoses Not on filedocumented in this encounter Care Teams Product Support Sales Representative Relationship Specialty Start Date End Date Name, MD Nitin [address] [place] [address] PCP - General Family Medicine 08/26/17 [facility] 09/01/24 documented as of this encounter
--- OUTSIDE RECORDS SUMMARY | 2025-03-01 07:52 | XMS_ITS | Encounter Summary ---
Author Organization [employer] [facility] Address 75 [facility] 7t [place] [address] Care Team Providers Care Stamp Press Operator Name Role Phone Name, Nitin PIKE Primary Care Provider [phone] Encounter Details Date Type Department Care Team ([facility] Contact Info) Description 08/08/2023 Telephone [facility] MEDICINE [address] [place] [address] [phone] Name, MD Nitin [address] [place] [address] [phone] Social History Tobacco Use Types Packs/Day Years [...] 10:00 AM EDT Office Visit [facility] [address] [place] [address] [phone] NameNitin MD [address] [place] [address] [phone] documented as of this encounter Visit Diagnoses Not on filedocumented in this encounter Additional Health Concerns Assessment Noted Time PHQ-9 Depression Total Score: 12 023 9:37 AM EDT documented as of this encounter Care Teams Stamp Press Operator Relationship Specialty Start Date End Date Name, MD Nitin 230 [place] [address] PCP - General Family Medicine 08/26/17 [facility] 09/01/24 documented as of this encounter
--- OUTSIDE RECORDS SUMMARY | 2025-03-01 07:52 | XMS_ITS | Encounter Summary ---
Author Organization [employer] Address 75 [facility] 7[address] [place] [address] Care Team Providers Care Quill Cleaner Name Role Phone Name, Nitin PIKE Primary Care Provider [phone] Reason for Visit * Reason Onset Date Comments Verbal Orders 12/15/2023 Encounter Details Date Type Department Care Team ([facility] st Contact Info) Description 12/15/2023 Telephone [facility] 230 [place], [place] [phone] Name, MD Nitin 230 [place] [address] Verbal Orders Social History Tobacco Use Types [...] 12:03 PM EST Tc from [facility] with [employer] requesting verbal order to see pt 2 times a week for 4 weeks for Occupational Therapy, please contact [facility] at [phone] documented in this encounter Plan of Treatment Upcoming Encounters Date Type Department Care Team (Late st Contact Info) Description 04/29/2025 10:00 AM EDT Office Visit [facility] MED[facility]INE 230 [place] [address] Name, MD Nitin [address] [place] [address] documented as of this encounter Visit Diagnoses Not on filedocumented in this encounter Additional Health Concerns Assessment Noted Time PHQ-9 Depression Total Score: 12 023 9:37 AM EDT documented as of this encounter Care Teams Quill Cleaner Relationship Specialty Start Date End Date NameNitin MD 230 [place] [address] PCP - General Family Medicine 08/26/17 [facility] 09/01/24 documented as of this encounter
--- OUTSIDE RECORDS SUMMARY | 2025-03-01 07:52 | XMS_ITS | Encounter Summary ---
Author Organization [employer] Address 75 [facility] 7[address] [place] [address] Care Team Providers Care Cilnical Scientist Name Role Phone Name, Nitin PIKE Primary Care Provider [phone] Reason for Visit * Reason Comments Med Refill Encounter Details Date Type Department Care Team (Late st Contact Info) Description 01/09/2025 Refill [facility] [address] [place] [address] [phone] Name, MD Nitin 230 [place] [address] Hypertension, unspecified type Social History Tobacco Use [...] 10:00 AM EDT Office Visit [facility] MED[facility]INE [address] [place] [address] NameNitin MD 230 [place] [address] documented as of this encounter Visit Diagnoses Diagnosis Hypertension, unspecified type documented in this encounter Additional Health Concerns Assessment Noted Time PHQ-9 Depression Total Score: 6 02/13/20 9:14 AM EDT documented as of this encounter Care Teams Cilnical Scientist Relationship Specialty Start Date End Date Name, MD Nitin [address] [place] [address] PCP - General Family Medicine 08/26/17 [facility] 09/01/24 documented as of this encounter
--- OUTSIDE RECORDS SUMMARY | 2025-03-01 07:52 | XMS_ITS | Encounter Summary ---
Author Organization [employer] Address 75 [facility] 7t [place] [address] Care Team Providers Care Nuclear Medicine Supervisor Name Role Phone Name, Nitin PIKE Primary Care Provider [phone] Reason for Visit * Reason Onset Date Comments FYI 01/21/2024 ER Follow-up 01/21/2024 Encounter Details Date Type Department Care Team ([facility] st Contact Info) Description 01/21/2024 Telephone [facility] MEDICINE 230 [place], [place] [phone] Name, MD Nitin 230 [place] [address] FYI; ER Follow-up Social History Tobacco Use [...] - 01/21/2024 1:54 PM EDT Message from [facility] ED noted. [facility] note sent to medical records. PCP does not rx Trazodone. Pt to f/u with psych prescriber. Pt is scheduled for f/u with pcp 02/13/24. * Telephone Encounter - Janette Huitron - 01/21/2024 9:45 AM EDT Tc from [facility] ED calling in regards to pt. States pt was seen today for anxiety and is requesting trazodone. Will discharge pt with no medication change. Would also like to advise provider, pt was seen at [facility] on 01/17 for anxiety/insomnia as well documented in this encounter Plan of Treatment Upcoming Encounters Date Type Department Care Team (Late st Contact Info) Description 04/29/2025 10:00 AM EDT Office Visit [facility] MEDICINE 230 [place] [address] Name, MD Nitin [address] [place] [address] documented as of this encounter Visit Diagnoses Not on filedocumented in this encounter Additional Health Concerns Assessment Noted Time PHQ-9 Depression Total Score: 12 023 9:37 AM EDT documented as of this encounter Care Teams Nuclear Medicine Supervisor Relationship Specialty Start Date End Date Name, MD Nitin 230 [place] [address] PCP - General Family Medicine 08/26/17 [facility] 09/01/24 documented as of this encounter
--- OUTSIDE RECORDS SUMMARY | 2025-03-01 07:52 | XMS_ITS | Encounter Summary ---
Author Organization [employer] Address 75 [facility] 7t [place] [address] Care Team Providers Care Proposal Writer Name Role Phone Name, Nitin PIKE Primary Care Provider [phone] Reason for Visit * Reason Onset Date Comments Order(s) 12/09/2023 Encounter Details Date Type Department Care Team ([facility] st Contact Info) Description 12/09/2023 Telephone [facility] MEDICINE 230 [place], [place] [phone] Name, MD Nitin 230 [place], [place] [phone] Order(s) Social History Tobacco Use Types Packs/Day [...] orders. If any questions please contact Noreen [phone]. documented in this encounter Plan of Treatment Upcoming Encounters Date Type Department Care Team (Late st Contact Info) Description 04/29/2025 10:00 AM EDT Office Visit [facility] MEDICINE [address] [place] [address] Name, MD Nitin [address] [place] [address] documented as of this encounter Visit Diagnoses Not on filedocumented in this encounter Additional Health Concerns Assessment Noted Time PHQ-9 Depression Total Score: 12 023 9:37 AM EDT documented as of this encounter Care Teams Proposal Writer Relationship Specialty Start Date End Date Name, MD Nitin [address] [place] [address] PCP - General Family Medicine 08/26/17 [facility] 09/01/24 documented as of this encounter
--- OUTSIDE RECORDS SUMMARY | 2025-03-01 07:52 | XMS_ITS | Encounter Summary ---
Author Organization [employer] Address [address] [facility] [address] [place] [address] Care Team Providers Care Trigonometry Tutor Name Role Phone Name, Nitin PIKE Primary Care Provider [phone] Reason for Visit * Reason Comments Med Refill Encounter Details Date Type Department Care Team (Late Contact Info) Description 03/02/2023 Refill [facility] [address] [place] [phone] Karely Patiño MD [address] [place] [address] [phone] Social History Tobacco Use Types Packs/Day Years [...] Description 04/29/2025 10:00 AM EDT Office Visit [facility] [address] [place] [phone] Wale, MD Nitin [address] [place] [address] documented as of this encounter Visit Diagnoses Not on filedocumented in this encounter Care Teams Trigonometry Tutor Relationship Specialty Start Date End Date Name, MD Nitin [address] [place] [address] PCP - General Family Medicine 08/26/17 [facility] 09/01/24 documented as of this encounter
--- OUTSIDE RECORDS SUMMARY | 2025-03-01 07:52 | XMS_ITS | Encounter Summary ---
Author Organization [employer] Address [address] [facility] [address] [place] [address] Care Team Providers Care Bundle Shaker Name Role Phone Name, Nitin PIKE Primary Care Provider [phone] Encounter Details Date Type Department Care Team ([facility] Contact Info) Description 01/06/2023 Orders Only [facility] & PEDS [address] [place], [place] [phone] Lisha Kelly LPN Social History Tobacco Use [...] 04/29/2025 10:00 AM EDT Office Visit [facility] [address] [place], [place] [phone] NameNitin MD [address] [place] [address] documented as of this encounter Visit Diagnoses Not on filedocumented in this encounter Care Teams Bundle Shaker Relationship Specialty Start Date End Date NameNitin MD [address] [place] [address] PCP - General Family Medicine 08/26/17 [facility] 09/01/24 documented as of this encounter
--- OUTSIDE RECORDS SUMMARY | 2025-03-01 07:52 | XMS_ITS | Encounter Summary ---
Author Organization [employer] Address 75 [facility] [address] [place] [address] Care Team Providers Care Microarray Operations Vice President Name Role Phone Name, Nitin PIKE Primary Care Provider [phone] Reason for Visit * Reason Comments Med Refill Encounter Details Date Type Department Care Team ([facility] st Contact Info) Description 08/16/2024 Refill [facility] PEDS [address] [place], [place] [phone] Name, MD Nitin [address] [place] [address] Heartburn Social History Tobacco Use Types Packs/Day [...] Office Visit [facility] [address] [place] [address] NameNitin MD [address] [place] [address] documented as of this encounter Visit Diagnoses Diagnosis Heartburn documented in this encounter Additional Health Concerns Assessment Noted Time PHQ-9 Depression Total Score: 6 02/13/20 9:14 AM EDT documented as of this encounter Care Teams Microarray Operations Vice President Relationship Specialty Start Date End Date NameNitin MD [address] [place] [address] PCP - General Family Medicine 08/26/17 [facility] 09/01/24 documented as of this encounter
--- OUTSIDE RECORDS SUMMARY | 2025-03-01 07:52 | XMS_ITS | Encounter Summary ---
Author Organization [employer] Address 75 [facility] [address] [place] [address] Care Team Providers Care Dressing Room Attendant Name Role Phone Name, Nitin PIKE Primary Care Provider [phone] Encounter Details Date Type Department Care Team (Late st Contact Info) Description 11/06/2022 Orders Only [facility] MED & PEDS [address] [place] [address] Lisha Kelly LPN Social History Tobacco Use [...] Description 04/29/2025 10:00 AM EDT Office Visit [facility] [address] [place] [address] NameNitin MD [address] [place] [address] documented as of this encounter Visit Diagnoses Not on filedocumented in this encounter Care Teams Dressing Room Attendant Relationship Specialty Start Date End Date Nitni Echevarria MD [address] [place] [address] PCP - General Family Medicine 08/26/17 [facility] 09/01/24 documented as of this encounter
--- OUTSIDE RECORDS SUMMARY | 2025-03-01 07:52 | XMS_ITS | Encounter Summary ---
Author Organization [employer] Address 75 [facility] 7[address] [place] [address] Care Team Providers Care Board Lining Machine Operator Name Role Phone Name, Nitin PIKE Primary Care Provider [phone] Encounter Details Date Type Department Care Team ([facility] Contact Info) Description 12/17/2022 Orders Only [facility] CH[facility] MED & PEDS [address] [place], [place] [phone] Lisha Kelly LPN Social History Tobacco Use [...] [facility] 230 [place] [address] NameNitin MD [address] [place] [address] documented as of this encounter Visit Diagnoses Not on filedocumented in this encounter Care Teams Board Lining Machine Operator Relationship Specialty Start Date End Date NameNitin MD [address] [place] [address] PCP - General Family Medicine 08/26/17 [facility] 09/01/24 documented as of this encounter
--- OUTSIDE RECORDS SUMMARY | 2025-03-01 07:52 | XMS_ITS | Clinical Summary ---
Author Organization [employer] Address [address] [facility] 7[address] [place] [address] Care Team Providers Care Manager Sterile Name Role Phone Name, Nitin PIKE Primary Care Provider [phone] Allergies Active Allergy Reactions Criticality Noted Date [...] MOUTH EVERY 8 HOURS NEEDED FOR PAIN ([facility]) 90 tablet 024 Active ammonium lactate [...] because it calms her down. I called [facility] pharmacy to attempt a med rec they instructed me that she is on med box and one week at a time prescriptions because she would break into her med boxes to take more Ambien or xanax. She is being seen by Izzy Perea at [facility]. He is aware of her behavior [...] left I received a call from the [facility] pharmacy instructing me that she was [...] Type Department Care Team Description 02/23/2025 Refill [facility] [address] [place] [address] Nitin Echevarria MD Vitamin D deficiency 02/22/2025 8:40 AM EDT Office [facility] [address] [address] Zechariah Cheung MD Chronic rhinitis (Primary Dx); Tinnitus of both ears; Chronic left ear pain; Allergic rhinitis, unspecified seasonality, unspecified trigger 02/22/2025 Travel 02/14/2025 9:00 AM EDT Office [facility] [address] [address] Delfina Romero MD 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); Viral upper respiratory tract infection 02/14/2025 Travel 02/14/2025 Refill [facility] [address] [place] [address] Nitin Echevarria MD Heartburn 02/14/2025 Orders Only [facility] EXTERNAL DATA DEPARTMENT Provider, Generic External Data 02/11/2025 Refill [facility] [address] [place] [address] Nitin Echevarria MD Generalized anxiety disorder with panic attacks 02/07/2025 Orders Only [facility] EXTERNAL DATA DEPARTMENT Provider, Generic External Data 02/06/2025 Orders Only GENERIC EXTERNAL DATA DEPARTMENT Provider, Generic External Data 02/02/2025 Refill [facility] [address] [place] [address] Nitin Echevarria MD Chronic constipation; Vertigo 02/01/2025 Refill [facility] [address] [place] [address] Nitin Echevarria MD Generalized anxiety disorder with panic attacks 01/31/2025 9:20 AM EDT Office Visit [facility] [address] [place] [address] Karely Patiño MD Impacted cerumen of left ear (Primary Dx) 01/24/2025 Refill [facility] MEDICINE [address] [place] [address] Nitin Echevarria MD Generalized anxiety disorder with panic attacks; Hypertension, unspecified type 01/10/2025 11:00 AM EST Office Visit [facility] MED[facility] [address] [place] [address] Nitin Echevarria MD Generalized anxiety disorder with panic attacks (Primary Dx); Cerumen debris on tympanic membrane of both ears 01/10/2025 Travel 01/09/2025 Refill [facility] [address] [place] [address] Nitin Echevarria MD Hypertension, unspecified type 01/05/2025 Telephone [facility]C MED & PEDS [address] [place] [address] Nitin Echevarria MD chartprep 01/03/2025 Refill [facility] [address] [place] [address] Nitin Echevarria MD Vertigo; Vitamin D deficiency 12/26/2024 Refill [facility] [address] [place] [address] Nitin Echevarria MD Prediabetes 12/17/2024 Refill [facility] MED[facility]INE [address] [place] [address] Daphne Fofana MD Chronic constipation; Vitamin D deficiency 12/06/2024 Refill [facility] [address] [place] [address] Nitin Echevarria MD Vertigo from Last 3 [...] 04/29/2025 10:00 AM EDT Office Visit [facility] MEDIC[facility] [address] [place] [address] Name, MD Nitin [address] [place] [address] Health Maintenance Due Date Last Done Comments [...] NOW Rapid Molecular) (02/22/2025 8:58 AM EDT) [facility] Influenza B Negative Negative, Indeterminate [facility] Swab 02/22/2025 8:58 AM EDT us Zechariah Cheung MD POINT OF CARE TEST ENTER/EDIT OR DERABLES Final Result Performing Organization Address [facility] Co de Phone Number [facility] [address] [place] [phone] * Influenza A (ID NOW Rapid Molecular) (02/22/2025 8:58 AM EDT) [facility] Influenza A Negative Negative, Indeterminate [facility] Swab 02/22/2025 8:58 AM EDT us Zechariah Cheung MD POINT OF CARE TEST ENTER/EDIT OR DERABLES Final Result Performing Organization Address [facility] Co de Phone Number [facility] [address] [place] [phone] * POCT Rapid COVID Ag (02/22/2025 8:58 AM EDT) [facility] Rapid COVID Ag Negative [facility] Swab 02/22/2025 8:58 AM EDT us Zechariah Cheung MD POINT OF CARE TEST ENTER/EDIT OR DERABLES Final Result Performing Organization Address [facility] Co de Phone Number [facility] [address] [place] [phone] * POCT rapid strep A manually resulted (02/22/2025 8:58 AM EDT) [facility] Rapid Strep A Screen Negative Negative, None Detected [facility] Swab 02/22/2025 8:58 AM EDT us Zechariah Cheung MD POINT OF CARE TEST ENTER/EDIT OR DERABLES Final Result [facility] [address] [place] [address] [phone] * XR Chest 1 View (02/14/2025 2:56 AM EDT) Anatomical Region Laterality Modality Chest Radiographic Lauren ging 02/14/2025 2:56 AM EDT Narrative 02/14/2025 2:58 AM EDT ? [facility] ?[address] ?[place] [address] ?XRay Report ? Signed ? Patient: Wing,Noreen ?MR#: [id number] ? : 1945 ?Acct:[id number] ? Age/Sex: 79 / F ?ADM Date: 02/14/25 ? Loc: HO.ED ? Attending Dr: ? Ordering Physician: Generic ED Physician ?? Date of Service: 02/14/25 ?? Procedure(s): XR chest 1V ?? Accession Number(s): [id number] ? cc: Generic ED Physician; [facility] ? CLINICAL HISTORY: sob ? 1 view [...] DD/ 0256 ? TD/TT: 02/14/25 0256 ? Credit Review Officer: ? Procedure Note Dale Shen - 02/14/[address] [place] [address] XRay Report Signed Patient: Noreen WingMR#: [id number] : 1945cct:[id number] Age/Sex: 79 / FADM Date: 02/14/25 Loc: HO.ED Attending Dr: Ordering Physician: Generic ED Physician Date of Service: 02/14/25 Procedure(s): XR chest 1V Accession Number(s): [id number] cc: Generic ED Physician; [facility] CLINICAL HISTORY: sob 1 view chest x-ray [...] 02/14/25 0257 DD/ 025 TD/TT: 02/14/25 025 Credit Review Officer: [facility] External Provider IMG XR PROCEDURES Edited Result - Final * Strep A Nucleic Acid (02/14/2025 12:10 AM EDT) IDNOW SERIAL# [id number] [facility] Strep A Nucleic Acid Negative Negative [facility] Comment:All test results mus t be [...] LAB MICROBIOLOGY - GENERAL ORDERABLES Final Result [facility] [address] [place] [address] [phone] * SARS-CoV-2 RNA, Influenza A/B, and RSV RNA, Ql NAAT (02/14/2025 12:10 AM EDT) Influenza A PCR NEGATIVE Negative [facility] Influenza B PCR NEGATIVE Negative [facility] Resp Syncy Virus RNA Qual PCR NEGATIVE Negative [facility] SARS COV2 PCR NEGATIVE Negative [facility] Comment:All test results mus t be [...] use by authorized laboratories.Testing performed on the AYLIEN GeneXpert utilizingreal-time RT-PCR.All SARS CoV2 and positive influenza A/B results arereported to [facility]. 02/14/2025 12:1 0 AM EDT 02/14/2025 12:13 AM EDT Generic External Data Provider LAB MICROBIOLOGY - GENERAL ORDERABLES Final Result [facility] [address] [place] [address] [phone] * XR KUB and Upright 2 Views (02/07/2025 12:53 AM EDT) Anatomical Region Laterality Modality Radiographic Lauren ging 02/07/2025 12:5 3 AM EDT Narrative 02/07/2025 12:55 AM EDT ? [facility] ?[address] ?[place] [address] ?XRay Report ? Signed ? Patient: Wing,Noreen ?MR#: [id number] ? : 1945 ?Acct:[id number] ? Age/Sex: 79 / F ?ADM Date: 03/30/25 ? Loc: HO.ED ? Attending Dr: ? Ordering Physician: Jeanne Shen ?? Date of Service: 02/07/25 ?? Procedure(s): XR KUB ?? Accession Number(s): [id number] ? cc: Jeanne Shen; [facility] ? CLINICAL HISTORY: pain ? 1 view [...] DD/ 0053 ? TD/TT: 02/07/25 0053 ? Credit Review Officer: ? Procedure Note Donalexandrater, Image - 02/07/2025 [place] [address] XRay Report Signed Patient: Jennifer Wing#: [id number] : 3Acct:[id number] Age/Sex: 79 / FADM Date: 02/06/25 Loc: HO.ED Attending Dr: Ordering Physician: Jeanne Shen Date of Service: 02/07/25 Procedure(s): XR KUB Accession Number(s): [id number] cc: Jeanne Shen; [facility] CLINICAL HISTORY: pain 1 view abdomen Comparison: [...] MD in OV> 02/07/2553 DD/ TD/TT: 02/07/2552 Credit Review Officer: [facility] External Provider IMG XR PROCEDURES Edited Result - Final * Culture, Urine, Routine (02/07/2025 12:00 AM EDT) Urine Urine specimen obtained by clean catch procedure / Unknown 02/07/2025 02/07/2025 Comment:UACC Narrative [facility] - 02/08/2025 8:36 AM EDT Urine Culture Report Result Urine Culture 50,000 to 100,000 cfu/ml Urine Culture Mixed bacterial jann characteristic of Urine Culture urogenital contamination. Specimen Source: Urine clean catch Generic External Data Provider LAB MICROBIOLOGY - GENERAL ORDERABLES Final Result [facility] [address] [place] [phone] * (ABNORMAL) Urinalysis, Complete, with Reflex to Culture (02/06/2025 11:50 PM EDT) Color Urine Yellow [facility] Appearance Urine Hazy [facility] PH 6.0 5.0 - 9.0 [facility] Glucose Urine UA Negative Negative mg/dL [facility] Urine Blood Trace Negative [facility] Specific [place] - Urine 1.020 1.005 - 1.025 [facility] Urine Protein Negative Neg-Trace mg/dL [facility] Urine Ketones Negative Negative mg/dL [facility] Nitrite Urine Negative Negative [facility] Leukocyte Esterase Urine Moderate (2+)(A) Negative [facility] RBC Urine 0-2 0 - 2 /HPF [facility] Urine WBC 11-20(A) 0 - 5 /HPF [facility] Urine Squamous Epithelial Cell 6-10 0 - 2 /HPF [facility] Urine Bacteria 2+ None Seen [facility] Hyaline Casts, Urine 0-2 0 - 2 /LPF [facility] 02/06/2025 11:5 0 PM EDT 02/06/2025 11:56 PM EDT Narrative [facility] - 02/07/2025 12:13 AM EDT Urine, Clean Catch Generic External Data Provider LAB URINE ORDERAB LES Final Result Performing Organization Address City/State/[facility] Co de Phone Number [facility] [address] [place] [phone] * POCT Glucose (01/10/2025 11:03 AM [...] ?? Jack RAYO et al. JITENDRA. 2013;310(19): 5549-9312 ?? (http://Filtec.Novatris/faq/SUM318) Non-HDL Cholesterol 88 <130 mg/dL (calc) CONVERTED [...] Most Recently Relevant to Health Maintenance Insurance [facility] Member Subscriber Plan / Payer (Ef fective 2009-Present) Name:Noreen Wing Relation to Subscriber:Self Name:Noreen Wing Payer ID:Not on file Group ID:[id number] Type:Not on file Address: [address] [employer] ([employer]) Care Teams Manager Sterile Relationship Specialty Start Date End Date Name, MD Nitin [address] [place], [place] [phone] PCP - General Family Medicine 08/26/17 [facility] 09/01/24
--- OUTSIDE RECORDS SUMMARY | 2025-03-01 07:52 | XMS_ITS | Encounter Summary ---
Author Organization [employer] Address [address] [facility] [address] [place] [address] Care Team Providers Care Senior Business Broker Name Role Phone Name, Nitin PIKE Primary Care Provider [phone] Reason for Visit * Reason Onset Date Comments Durable Medical Equipment 12/09/2023 Encounter Details Date Type Department Care Team ([facility] st Contact Info) Description 12/09/2023 Telephone [facility] [address] [place], [place] [phone] Name, MD Nitin [address] [place], [place] [phone] Durable Medical Equipment Social History Tobacco Use [...] 10:11 AM EST DME rx faxed to [facility] as requested. RN will consult with S nurse and provide referral. * Telephone Encounter - Fozia Jacob RN - 12/09/2023 4:58 PM EST Call returned to [facility] at [facility] [phone]. [phone]. [facility] states that [facility] attempted to provide PT at home but pt refused. [facility] pt is requesting outpatient PT. [facility] pt is seeing a counselor more regularly and has agreed to VNA referral. Reports pt has had 3 falls in the past 2 months. [facility] states [facility] no longer has visiting nurses. [facility] recommends [employer] or [facility] for VNA referral. [facility] also requesting DME rx for rollator walker and a straight cane. Requests that DME rx be faxed to [phone]. Advised requests will be sent to pcp. * Telephone Encounter - Adithya Solorzano - 12/09/2023 4:25 PM EST Tc from [facility] requesting DME: Rollator walker . documented in this encounter Plan of Treatment Upcoming Encounters Date Type Department Care Team (Late st Contact Info) Description 04/29/2025 10:00 AM EDT Office Visit [facility] [address] [place] [address] Name, MD Nitin [address] [place] [address] documented as of this encounter Visit Diagnoses Not on filedocumented in this encounter Additional Health Concerns Assessment Noted Time PHQ-9 Depression Total Score: 12 023 9:37 AM EDT documented as of this encounter Care Teams Senior Business Broker Relationship Specialty Start Date End Date Name, MD Nitin [address] [place] [address] PCP - General Family Medicine 08/26/17 [facility] 09/01/24 documented as of this encounter
--- NOTE | 2025-03-01 07:59 | PC.NURSE ---
PT WAS SEEN EARLIER TODAY AND DISCHARGED, SHE IS AWAITING A RIDE TO [facility] TO SEE HER PRIMARY AND WAS SIGNED BACK IN BY REGISTRATION AFTER SHE STATED TO THEM SHE WAS HAVING DIFFICULTY WITH HER BP. SHE DECLINED TO BE TRIAGED AND REFUSED TO BE BROUGHT IN TO THE ED TO BE SEEN.
== END 2025-03-01 08:02 | disposition left against medical advice (07) ==
PROVIDERS: Emergency Provider Emergency Medicine
DX: I10 Essential (primary) hypertension (principal)

== ENCOUNTER 2025-03-03 00:45 | Emergency (ER) | payer OTHER, SELFPAY ==
--- NOTE | ~2025-03-03 | XR_ITS ---
CLINICAL HISTORY: lower abdominal pain 1 view abdomen Comparison: CR - XR [facility] - 02/24/25 03:03 EDT Findings: Dilated bowel within the right abdomen measures up to 8.9 cm in transverse measurement. This is likely colon. Air-filled loops of small bowel within the left midabdomen measure up to 2.9 cm in size. No indirect evidence for free air is seen on this supine exam. Areas seen distally within the sigmoid colon rectum. Lung bases are clear. Degenerative change throughout the visualized portions of the thoracolumbar spine. Degenerative change of both hip joints, [id number]-crko-left. Heterotopic ossification seen adjacent to the right greater trochanter. 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 IMPRESSION: Dilated bowel as above, primarily within the right midabdomen. Pattern is very similar to that seen on the patient's prior study. Colonic ileus versus distal colonic obstruction are in the differential. CT abdomen and pelvis with intravenous contrast could further evaluate. This document has been electronically signed by: Rober Owusu MD on 03/03/2025 02:41:52
[2025-03-03 00:50] VITALS: BP 133/70; BP 140/86; PULSE 100; PULSE 88; RESP 16; TEMP 37; O2SAT 96; O2SAT 97; BMI 29.5
[2025-03-03 01:55] VITALS: BP 127/82; PULSE 109; RESP 24; TEMP 37.2; O2SAT 94
--- NOTE | 2025-03-03 02:06 | ED.GENADULT ---
HPI - General Adult General Chief complaint: General Medical Stated complaint: constipated x5 hrs. med not working, not anxious Time Seen by Provider: 03/03/25 01:44 Source: patient and RN notes reviewed Mode of arrival: EMS Limitations: no limitations History of Present Illness ED Provider: Aniyah HPI narrative: 79-year-old female who was well known to this facility presents for evaluation of constipation She has a history of severe anxiety, dementia, history of SVT, chronic constipation This is the patient's 7th visit to this ER this month alone. Seen here 1 week ago for constipation and discharged home with MiraLax and docusate sodium She reports she took the medications and they worked immediately and she was able to have several good bowel movements She reports that she went back to the pharmacy to get ?more of the pills but they would not give them to me. ? Mild lower abdominal pain Denies any nausea or vomiting No other complaints or concerns at this time Related Data Home Medications ?Medication ?Instructions ?Recorded ?Confirmed mirtazapine 45 mg tablet 45 mg PO BEDTIME 08/09/20 09/29/24 omeprazole 20 mg tablet,delayed 20 mg PO DAILY@0630 08/09/20 09/29/24 release aspirin 81 mg tablet,delayed 81 mg PO QAM 01/28/24 09/29/24 release bisacodyl 5 mg tablet,delayed 5 mg PO DAILY PRN constipation 01/28/24 09/29/24 release diphenhydramine HCl 25 mg tablet 25 mg PO BEDTIME PRN itch 01/28/24 09/29/24 (Lou-Dryl) ferrous sulfate 325 mg (65 mg 325 mg PO DAILY 01/28/24 09/29/24 iron) tablet (FeroSul) melatonin 10 mg tablet,extended 10 mg PO BEDTIME PRN Insomnia 01/28/24 09/29/24 release multivitamin 1 tab PO QAM 01/28/24 09/29/24 rosuvastatin 20 mg tablet 20 mg PO BEDTIME 01/28/24 09/29/24 trazodone 50 mg tablet 50 mg PO BEDTIME 01/28/24 09/29/24 amlodipine 10 mg tablet 10 mg PO DAILY 02/09/24 09/29/24 acetaminophen 500 mg tablet 500 mg PO Q8H PRN pain 08/09/24 09/29/24 ipratropium bromide 21 mcg (0.03 2 spray intranasal BID 08/09/24 09/29/24 %) nasal spray zolpidem 5 mg tablet 5 mg PO BEDTIME PRN Insomnia 08/09/24 09/29/24 cholecalciferol (vitamin D3) 25 25 mcg PO DAILY 08/20/24 09/29/24 mcg (1,000 unit) tablet meclizine 25 mg tablet 25 mg PO DAILY PRN 09/29/24 09/29/24 Previous Rx's ?Medication ?Instructions ?Recorded metoprolol succinate 50 mg 50 mg PO DAILY #90 tabs 09/28/20 tablet,extended release 24 hr fluticasone propionate 50 2 spray intranasal DAILY #16 grams 09/16/23 mcg/actuation nasal spray,suspension (Flonase Allergy Relief) ondansetron 4 mg disintegrating 4 mg PO Q6H PRN nausea and 04/28/24 tablet vomiting #10 tabs hydroxyzine HCl 25 mg tablet 25 mg PO TID PRN anxiety #6 tabs 08/07/24 clonazepam 0.5 mg tablet 0.5 mg PO TID #180 tabs 08/10/24 gabapentin 100 mg capsule 100 mg PO TID #180 caps 08/10/24 hydroxyzine HCl 25 mg tablet 25 mg PO TID PRN anxiety #20 tabs 09/09/24 miconazole nitrate 2 % vaginal 1 appful vaginal BEDTIME 7 days 10/09/24 cream (Monistat 7) #45 grams nitrofurantoin 100 mg PO Q12H 3 days #6 caps 10/09/24 monohydrate/macrocrystals 100 mg capsule (Macrobid) miconazole nitrate 2 % topical 1 appl topical BID #28 grams 01/01/25 cream valsartan 160 mg tablet 160 mg PO DAILY #90 tabs 01/20/25 ofloxacin 0.3 % ear drops 10 drp otic (ears) DAILY 7 days #5 02/01/25 mL docusate sodium 100 mg capsule 200 mg (2 x 100 mg) PO BID #30 caps 02/07/25 (Col-Rite) polyethylene glycol 3350 17 17 g PO Q8H #238 grams 02/07/25 gram/dose oral powder (ClearLax) white petrolatum 41 % topical 1 appl topical BID PRN irritated 02/07/25 ointment (Advanced Healing skin #50 grams (Petrolatum)) azithromycin 250 mg tablet 250 mg PO DAILY 4 days #4 tabs 02/14/25 (Zithromax) docusate sodium 100 mg capsule 200 mg (2 x 100 mg) PO BID #20 caps 02/24/25 (Colace) polyethylene glycol 3350 17 17 g PO BID #119 grams 02/24/25 gram/dose oral powder (Miralax) simethicone 180 mg capsule 180 mg PO BID PRN abdominal 03/03/25 distention #14 caps Allergies Allergy/AdvReac Type Severity Reaction Status Date / Time penicillin G [Penicillin G] Allergy Severe ITCHY/RASH Verified 03/03/25 00:52 Sulfa (Sulfonamide Allergy Severe ITCHY,RASH, Verified 03/03/25 00:52 Antibiotics) rash [Sulfa (Sulfonamides)] trimethoprim [From Bactrim] Allergy Severe HIVES Verified 03/03/25 00:52 Penicillins Allergy Intermediate Hives Verified 03/03/25 00:52 sulfamethoxazole Allergy Mild Hives Verified 03/03/25 00:52 [From Bactrim] Review of Systems Constitutional: Constitutional: Denies body ache(s), Denies chills and Denies headache(s) Eyes: Eyes: Denies blurry vision ENT: Denies vertigo, Denies dizziness and Denies headache(s) Cardiovascular: Cardiovascular: Denies chest pain and Denies dyspnea Respiratory: Respiratory: Denies cough and Denies dyspnea Gastrointestinal: Gastrointestinal: Reports abdominal pain, Reports constipation, Denies nausea and Denies vomiting Genitourinary: Genitourinary: Denies dysuria Musculoskeletal: Musculoskeletal: Denies back pain Integumentary/Breasts: Skin/Breast: Denies rash Neurologic: Denies vertigo, Denies dizziness and Denies headache(s) [facility] Past Medical History 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 or 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 (booking officer) Unable to assess alcohol history related to: Unknown Alcohol intake: never Patient Tobacco Use Status: Never used Tobacco Advance Directives Date on File: 01/28/24 Do you have a plan to hurt others: No Plan service: No Physical Exam ED Vital Signs: Vital Signs - 24 hr 03/03/25 00:50 03/03/25 01:55 Temperature 98.6 F 98.9 F Pulse Rate 88 109 H Respiratory Rate 16 24 H Blood Pressure 133/70 127/82 Pulse Oximetry 96 94 Oxygen Delivery Method Room Air Room Air BMI result Body Mass Index 29.5 Const General: healthy appearing, comfortable, no acute distress, alert and awake Nutritional Appearance: well nourished Orientation/consciousness: patient oriented x3 HENMT Head: Yes normocephalic and Yes atraumatic Eyes Eyelids: Yes eyelids normal Conjunctivae: conjunctivae normal Sclerae: sclerae normal Corneas: corneas normal Pupils: Equal, round and reactive pupils present EOM: EOMs intact bilaterally Neck Neck: Yes full ROM Resp Effort & Inspection: normal respiratory effort, able to speak in complete sentences and not labored GI Palpation (GI): Soft to palpation, not firm, Tenderness to palpation present (GI) in the LLQ and suprapubicly; not in the RLQ, not in the LUQ and not in the RUQ, no guarding and not rigid Auscultation: normoactive bowel sounds Skin General skin exam: elasticity normal Neuro General: patient oriented x3 Cranial nerves: Yes Equal, round and reactive pupils present and Yes Bilaterally intact EOM present Cognition (Neuro): normal cognition Extrem Other: Moving all extremities well without any obvious deformities Course Reevaluation(s) Reevaluation #1: Patient's x-ray shows an overall nonobstructive bowel gas pattern but does have some dilated bowel loops similar to previous study. The patient reports that she had great success involvement with tested receiving the pills on her last visit a week ago. We will give her a dose of simethicone and docusate sodium. She does not want the MiraLax powder she previously received as she was not feel this is helpful. Time: 02:49 Medical Decision Making Medical Decision Making [facility] Narrative: 79-year-old female who was well known to this emergency department presents for evaluation of reported constipation. Her abdomen is quite soft with subjective tenderness. There was no rebound or guarding. I reviewed her recent visits. Plan for KUB to evaluate for degree of constipation. I have a very low suspicion for infectious process as she has a long history of constipation. She has no fever and abdominal exam is reassuring Differential Diagnosis Differential Diagnoses: The differential diagnosis associated with the presentation includes Constipation Abdominal pain Diverticulitis less likely Bowel obstruction Anxiety Independent Interpretation I performed an independent interpretation of an: Plain X-Ray (Nonobstructive bowel gas pattern with some stool burden) Radiology Impression Discussion of test interpretation with radiology: I have reviewed the radiologist's reading. Radiologist Impression: Findings: Dilated bowel within the right abdomen measures up to 8.9 cm in transverse measurement. This is likely colon. Air-filled loops of small bowel within the left midabdomen measure up to 2.9 cm in size. No indirect evidence for free air is seen on this supine exam. Areas seen distally within the sigmoid colon rectum. Lung bases are clear. Degenerative change throughout the visualized portions of the thoracolumbar spine. Degenerative change of both hip joints, [id number]-left. Heterotopic ossification seen adjacent to the right greater trochanter. 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 IMPRESSION: Dilated bowel as above, primarily within the right midabdomen. Pattern is very similar to that seen on the patient's prior study. Colonic ileus versus distal colonic obstruction are in the differential. CT abdomen and pelvis with intravenous contrast could further evaluate. This document has been electronically signed by: Rober Owusu MD on 03/03/2025 02:41:52 Discharge Plan Discharge Clinical Impression: Chronic constipation Patient Disposition: Home, Self-Care Instructions: Constipation (ED), High Fiber Diet (ED) Prescriptions: New simethicone 180 mg capsule 180 mg PO BID PRN (Reason: abdominal distention) Qty: 14 0RF No Action metoprolol succinate 50 mg tablet extended release 24 hr 50 mg PO DAILY Qty: 90 2RF valsartan 160 mg tablet 160 mg PO DAILY Qty: 90 1RF mirtazapine 45 mg Tablet 45 mg PO BEDTIME omeprazole 20 mg Tablet,Delayed Release (Dr/Ec) 20 mg PO DAILY@0630 fluticasone propionate [Flonase Allergy Relief] 50 mcg/actuation spray,suspension 2 spray intranasal DAILY Qty: 16 0RF Rx Instructions: administer into each nostril hydroxyzine HCl 25 mg tablet 25 mg PO TID PRN (Reason: anxiety) Qty: 6 0RF hydroxyzine HCl 25 mg tablet 25 mg PO TID PRN (Reason: anxiety) Qty: 20 0RF miconazole nitrate 2 % cream 1 appl topical BID Qty: 28 0RF azithromycin [Zithromax] 250 mg tablet 250 mg PO DAILY 4 Days Qty: 4 0RF Rx Instructions: start on day 2 of therapy trazodone 50 mg tablet 50 mg PO BEDTIME ferrous sulfate [FeroSul] 325 mg (65 mg iron) tablet 325 mg PO DAILY diphenhydramine HCl [Lou-Dryl] 25 mg tablet 25 mg PO BEDTIME PRN (Reason: itch) bisacodyl 5 mg tablet,delayed release (DR/EC) 5 mg PO DAILY PRN (Reason: constipation) rosuvastatin 20 mg tablet 20 mg PO BEDTIME aspirin 81 mg tablet,delayed release (DR/EC) 81 mg PO QAM multivitamin Tablet 1 tab PO QAM melatonin 10 mg tablet extended release 10 mg PO BEDTIME PRN (Reason: Insomnia) cholecalciferol (vitamin D3) 25 mcg (1,000 unit) tablet 25 mcg PO DAILY ondansetron 4 mg tablet,disintegrating 4 mg PO Q6H PRN (Reason: nausea and vomiting) Qty: 10 0RF acetaminophen 500 mg tablet 500 mg PO Q8H PRN (Reason: pain) zolpidem 5 mg tablet 5 mg PO BEDTIME PRN (Reason: Insomnia) ipratropium bromide 21 mcg (0.03 %) spray,non-aerosol 2 spray intranasal BID clonazepam 0.5 mg Tablet 0.5 mg PO TID Qty: 180 0RF gabapentin 100 mg Capsule 100 mg PO TID Qty: 180 0RF nitrofurantoin monohyd/m-cryst [Macrobid] 100 mg capsule 100 mg PO Q12H 3 Days Qty: 6 0RF Rx Instructions: must administer with a meal/food miconazole nitrate [Monistat 7] 2 % cream 1 appful vaginal BEDTIME 7 Days Qty: 45 0RF ofloxacin 0.3 % drops 10 drp otic (ears) DAILY 7 Days Qty: 5 0RF docusate sodium [Col-Rite] 100 mg capsule 200 mg PO BID Qty: 30 0RF polyethylene glycol 3350 [ClearLax] 17 gram/dose powder 17 g PO Q8H Qty: 238 0RF Advanced Healing (Petrolatum) 41 % ointment 1 appl topical BID PRN (Reason: irritated skin) Qty: 50 0RF docusate sodium [Colace] 100 mg capsule 200 mg PO BID Qty: 20 0RF polyethylene glycol 3350 [Miralax] 17 gram/dose powder 17 g PO BID Qty: 119 0RF amlodipine 10 mg tablet 10 mg PO DAILY meclizine 25 mg tablet 25 mg PO DAILY PRN Print Language: Choose Not To Answer
[2025-03-03] MEDS: Docusate Sodium 100 MG CAPSULE 200 MG PO (02:54)
[2025-03-03] MEDS: Simethicone 80 MG TAB.CHEW 160 MG PO (02:54)
[2025-03-03 03:10] VITALS: BP 118/40; PULSE 83; RESP 18; TEMP 36.7; O2SAT 96
== END 2025-03-03 03:20 | disposition home or self-care (01) ==
PROVIDERS: Emergency Provider Emergency Medicine
DX: K59.09 Other constipation (principal); R10.30 Lower abdominal pain, unspecified
CPT/HCPCS: 74018; 99283; 99284

== ENCOUNTER → 2025-03-03 01:59 | Outpatient (BNV) | payer OTHER, SELFPAY | PROVIDERS: Emergency Provider Emergency Medicine; Visit Provider Radiology Diagnostic Radiology | DX: R10.30 Lower abdominal pain, unspecified (principal) | CPT/HCPCS: 74018 ==

== ENCOUNTER 2025-03-07 06:07 | Emergency (ER) | payer OTHER, SELFPAY ==
[2025-03-07 06:11] VITALS: BP 158/78; BP 180/82; PULSE 80; PULSE 86; RESP 18; TEMP 36.6; O2SAT 97; O2SAT 99
--- OUTSIDE RECORDS SUMMARY | 2025-03-07 06:21 | XMS_ITS | Clinical Summary ---
Author Organization [facility] Address [address] [place] [address] Phone Care Team Providers Care Application Support Lead Name Role Phone Physician, No Pcp Primary [...] 3:15 AM [facility] Potassium 4.6 3.5 - 5.5 [...] LAB CHEMISTRY METHOD 09/22/2024 3:15 AM EST [facility] Albumin 4.2 3.2 - 5.0 g/dL LAB CHEMISTRY METHOD 09/22/2024 3:15 AM EST [facility] Total Bilirubin 0.4 0.0 - 1.4 mg/dL LAB CHEMISTRY METHOD 09/22/2024 3:15 AM EST [facility] Blood Venous blood specimen / Unknown Venipuncture / Unknown 09/22/2024 2:28 AM EST 09/22/2024 2:31 AM EST Paul RUIZ LAB BLOOD ORDERABLES Final Resul t [facility] [address] [place] [address], from Last 3 Months or Most Recently Relevant to Health Maintenance Insurance [facility] MEDIC[facility] Member Subscriber Plan / Payer (Ef fective 2021-Present) Name:WingNoreen garcia Relation to Subscriber:Self Name:WingNoreen garcia Payer ID:[id number] Group ID:[id number] Type:Not on file Address: [facility] [address] [address] Care Teams Application Support Lead Relationship Specialty Start Date End Date Physician, No Pcp PCP - General 09/22/24
--- OUTSIDE RECORDS SUMMARY | 2025-03-07 06:21 | XMS_ITS | Encounter Summary ---
Author Organization [employer] Address [address] [facility] [address] [place] [address] Care Team Providers Care Body Trimmer Upholsterer Name Role Phone Name, Nitin PIKE Primary Care Provider [phone] Reason for Visit * Reason Comments Med Refill Encounter Details Date Type Department Care Team ([facility] st Contact Info) Description 04/01/2024 Refill [facility] [address] [place], [place] [phone] Name, MD Nitin [address] [place] [address] Rash Social History Tobacco Use Types Packs/Day [...] Description 04/29/2025 10:00 AM EDT Office Visit [facility] [address] [place] [address] Name, MD Nitin [address] [place] [address] documented as of this encounter Visit Diagnoses Diagnosis Rash Rash and other nonspecific skin eruption documented in this encounter Additional Health Concerns Assessment Noted Time PHQ-9 Depression Total Score: 6 02/13/20 9:14 AM EDT documented as of this encounter Care Teams Body Trimmer Upholsterer Relationship Specialty Start Date End Date NameNitin MD [address] [place] [id number] PCP - General Family Medicine 08/26/17 [facility] 09/01/24 documented as of this encounter
--- OUTSIDE RECORDS SUMMARY | 2025-03-07 06:21 | XMS_ITS | Encounter Summary ---
Author Organization [employer] Address [address] [facility] [address] [place] [address] Care Team Providers Care Kiln Repairer Name Role Phone Name, Nitin PIKE Primary Care Provider [phone] Reason for Visit * Reason Onset Date Comments Hospital Follow-up 10/20/2024 Encounter Details Date Type Department Care Team ([facility] st Contact Info) Description 10/20/2024 Telephone [facility] [address] [place], [place] [phone] Name, MD Nitin [address] [place] [address] Hospital Follow-up Social History Tobacco Use Types [...] the past 12 months, has t he [employer], gas, oil or water company threatened to [...] from pt requesting a HDF appt. Hospital: [facility] Date of admission: 10/17 Discharge date: 10/19 Diagnosed: High Blood Pressure and Fever Contact pt at [phone] *Send message to [facility] Clinical Care Coordinators documented in this encounter Plan of Treatment Upcoming Encounters Date Type Department Care Team (Late st Contact Info) Description 04/29/2025 10:00 AM EDT Office Visit [facility] [address] [place] [phone] Name, MD Nitin [address] [place] [address] documented as of this encounter Visit Diagnoses Not on filedocumented in this encounter Additional Health Concerns Assessment Noted Time PHQ-9 Depression Total Score: 6 02/13/20 24 9:14 AM EDT documented as of this encounter Care Teams Kiln Repairer Relationship Specialty Start Date End Date Name, MD Nitin [address] [place] [address] PCP - General Family Medicine 08/26/17 [facility] 09/01/24 documented as of this encounter
--- OUTSIDE RECORDS SUMMARY | 2025-03-07 06:21 | XMS_ITS | Encounter Summary ---
Author Organization [employer] Address [address] [facility] [address] [place] [address] Care Team Providers Care Record Label Internship Name Role Phone Name, Nitin PIKE Primary Care Provider [phone] Reason for Visit * Reason Onset Date Comments ER Follow-up 05/31/2024 Encounter Details Date Type Department Care Team ([facility] st Contact Info) Description 05/31/2024 Telephone [facility] [address] [place], [place] [phone] Name, MD Nitin [address] [place] [address] ER Follow-up Social History Tobacco Use Types [...] 05/31/2024 1:36 PM EDT T/C to Pat ([facility]) [phone] for below message, no answer. LVM to call back on [phone]. * Telephone Encounter - Melany Santos RN - 05/31/2024 1:32 PM EDT DAVID T/C to pt. Through [employer] [place] - [id number] for below message, pt. Had recent fall and ED visit at [facility]. RN will request GRACE piedra from [facility]. Pt. Is doing good, states I am tired andsleeping. Pt. Dose not has any question or concern right now. Pt. Already has HDF apt. Schedule on 06/10/2024. Pt. Advised to give call to [facility] if any questions or concerns. Pt. Verbally agreed and understood. Please review and advise if needed. * Telephone Encounter - Adithya Solorzano - 05/31/2024 12:50 PM EDT Patient calling to report ED visit on : Date: 05/26 Hospital: [facility] Seen for: Fall, Back Pain Pat stated [...] Visit [facility] [address] [place] [address] Name, MD Nitin [address] [place] [address] documented as of this encounter Visit Diagnoses Not on filedocumented in this encounter Additional Health Concerns Assessment Noted Time PHQ-9 Depression Total Score: 6 02/13/20 24 9:14 AM EDT documented as of this encounter Care Teams Record Label Internship Relationship Specialty Start Date End Date Name, MD Nitin [address] [place] [address] PCP - General Family Medicine 08/26/17 [facility] 09/01/24 documented as of this encounter
--- OUTSIDE RECORDS SUMMARY | 2025-03-07 06:21 | XMS_ITS | Encounter Summary ---
Author Organization [employer] Address [address] [facility] [address] [place] [address] Care Team Providers Care Cutter Operator Helper Name Role Phone Name, Nitin PIKE Primary Care Provider [phone] Reason for Visit * Reason Onset Date Comments ER Follow-up 05/04/2024 Encounter Details Date Type Department Care Team ([facility] st Contact Info) Description 05/04/2024 Telephone [facility] [address] [place], [place] [phone] Name, MD Nitin [address] [place] [address] ER Follow-up Social History Tobacco Use Types [...] 11:01 AM EDT T/C to pt. Through [employer] id - [id number] for below message, No answer. LVM to call back [phone] . * Telephone Encounter - Adithya Solorzano - 05/04/2024 9:35 AM EDT Noreen with [facility] calling to report ED visit on : Date: 04/28 Hospital: [facility] Seen for: UTI, Nausea, Rash. Noreen advised will be forwarding message to team nurses. Please contact pt at [phone]. documented in this encounter Plan of Treatment Upcoming Encounters Date Type Department Care Team (Late st Contact Info) Description 04/29/2025 10:00 AM EDT Office Visit [facility] [address] [place] [address] Name, MD Nitin [address] [place] [address] documented as of this encounter Visit Diagnoses Not on filedocumented in this encounter Additional Health Concerns Assessment Noted Time PHQ-9 Depression Total Score: 6 02/13/20 24 9:14 AM EDT documented as of this encounter Care Teams Cutter Operator Helper Relationship Specialty Start Date End Date Name, MD Nitin [address] [place] [address] PCP - General Family Medicine 08/26/17 [facility] 09/01/24 documented as of this encounter
--- OUTSIDE RECORDS SUMMARY | 2025-03-07 06:21 | XMS_ITS | Encounter Summary ---
Author Organization [employer] Address [address] [facility] [address] [place] [address] Care Team Providers Care Oil Driller Name Role Phone Name, Nitin PIKE Primary Care Provider [phone] Reason for Visit * Reason Onset Date Comments Med Refill 11/08/2024 Encounter Details Date Type Department Care Team ([facility] st Contact Info) Description 11/08/2024 Telephone [facility] [address] [place], [place] [phone] Name, MD Nitin [address] [place] [address] Med Refill Social History Tobacco Use Types [...] 5 MG tablet To be sent to: [facility] [place], [place] - [address] [facility] documented in this encounter Plan of Treatment Upcoming Encounters Date Type Department Care Team ([facility] st Contact Info) Description 04/29/2025 10:00 AM EDT Office Visit [facility] [address] [place] [address] Name, MD Nitin [address] [place] [address] documented as of this encounter Visit Diagnoses Not on filedocumented in this encounter Additional Health Concerns Assessment Noted Time PHQ-9 Depression Total Score: 6 02/13/20 24 9:14 AM EDT documented as of this encounter Care Teams Oil Driller Relationship Specialty Start Date End Date Name, MD Nitin [address] [place] [address] PCP - General Family Medicine 08/26/17 [facility] 09/01/24 documented as of this encounter
--- OUTSIDE RECORDS SUMMARY | 2025-03-07 06:22 | XMS_ITS | Clinical Summary ---
Author Organization [facility] Facility Address [address] [address] Care Team Providers Care Online Producer Name Role Phone Name, Nitin PIKE Primary Care Provider [phone] Allergies Active Allergy Reactions Criticality Noted Date [...] patient's age to complete this topic [place] [address] MCR ([id number]) SARA PHILLIPS [id number] [facility] MCR ([id number]) Care Teams Online Producer Relationship Specialty Start Date End Date Name, MD Nitin [address] [place] [address] PCP - General Internal Medicine 10/15/22
--- OUTSIDE RECORDS SUMMARY | 2025-03-07 06:22 | XMS_ITS | Encounter Summary ---
Author Organization [employer] Address [address] [facility] [address] [place] [address] Care Team Providers Care Geophysical Laboratory Director Name Role Phone Name, Nitin PIKE Primary Care Provider [phone] Reason for Visit * Reason Onset Date Comments Order(s) 12/09/2023 Encounter Details Date Type Department Care Team ([facility] st Contact Info) Description 12/09/2023 Telephone [facility] MED[facility] [address] [place], [place] [phone] Name, MD Nitin 230 [place], [place] [phone] Order(s) Social History Tobacco Use Types Packs/Day [...] orders. If any questions please contact Noreen [phone]. documented in this encounter Plan of Treatment Upcoming Encounters Date Type Department Care Team (Late st Contact Info) Description 04/29/2025 10:00 AM EDT Office Visit [facility] MED[facility]INE [address] [place] [address] Name, MD Nitin [address] [place] [address] documented as of this encounter Visit Diagnoses Not on filedocumented in this encounter Additional Health Concerns Assessment Noted Time PHQ-9 Depression Total Score: 12 023 9:37 AM EDT documented as of this encounter Care Teams Geophysical Laboratory Director Relationship Specialty Start Date End Date Name, MD Nitin [address] [place] [address] PCP - General Family Medicine 08/26/17 [facility] 09/01/24 documented as of this encounter
--- OUTSIDE RECORDS SUMMARY | 2025-03-07 06:22 | XMS_ITS | Encounter Summary ---
Author Organization [employer] Address [address] [facility] [address] [place] [address] Care Team Providers Care Exterminator Helper Name Role Phone Name, Nitin PIKE Primary Care Provider [phone] Reason for Visit * Reason Comments Med Refill Encounter Details Date Type Department Care Team ([facility] st Contact Info) Description 06/28/[address] [facility] [address] [place], [place] [phone] Mel Anguiano FNP [address] [place] [address] Social History Tobacco Use Types Packs/Day Years [...] 04/29/2025 10:00 AM EDT Office Visit [facility] [address] [place] [address] Name, MD Nitin 230 [place] [address] documented as of this encounter Visit Diagnoses Not on filedocumented in this encounter Additional Health Concerns Assessment Noted Time PHQ-9 Depression Total Score: 6 02/13/20 9:14 AM EDT documented as of this encounter Care Teams Exterminator Helper Relationship Specialty Start Date End Date Name, MD Nitin 230 [place] [address] PCP - General Family Medicine 08/26/17 [facility] 09/01/24 documented as of this encounter
--- OUTSIDE RECORDS SUMMARY | 2025-03-07 06:22 | XMS_ITS | Data Portability ---
Author Organization [employer] Information Address [address] [place] [id number] Care Team Providers Care Curtain Cutter Name Role Phone HIM CCA Primary Care Provider [phone] Assessment No assessment recorded. Plan of Treatment [...] Last Updated DateTime 18 /min 74 /min 02627.9 28 g 98 % 98 % 100 [degF] 130 mm[Hg] 66 mm[Hg] Not Available [facility] 15:33:18 Social History None recorded. Functional Status None recorded. Mental Status None recorded. Family History Nothing Reported. Medical History No medical history recorded. Gynecological HistoryNo gynecological history recorded. 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 She called today because she insists on having the catheter removed. It was removed by the thermal surfacing machine operator with the understand ing that if she can't void, she will need to go the the ER. The patient agreed with this plan. [id number] Rohit Benton MD Main - [address] [address] 02/06/2024 15:33:16 02/09/2024 18:20:42 Chronic retention of urine [id number] R33.8 Has bunn catheter which was recently [...] [facility] - DOS ON OR AFTER 2023 - DUAL ELIGIBLE - USP OPTIONS AND ONE CARE (MEDICARE REPLACEMENT/ADV ANTAGE - HMO) Noreen Wing [id number] Noreen Wing 02/06/2024 1 [facility] - DOS ON OR AFTER 2023 - DUAL ELIGIBLE - USP OPTIONS AND ONE CARE (MEDICARE REPLACEMENT/ADV ANTAGE - HMO) Noreen Wing [id number] Noreen Wing Notes Date Note Type Note Provider Name and Address Organization Details Recorded Time 01/31/2024 text/html [facility] Nurse Triage Notes (Joana Dominique): Reason For Request: Bunn catheter malfunction/painful Chief Complaints: UTI/Pyelonephritis, Equipment-Related Allergies: No Known Comments: Uruguayan speaking member who denies any PMH, denies [...] Epifanio Mcintyre MD [address], [place], [address], [employer] 01/31/2024 19:05:57 02/06/2024 text/html HPI: Member asked for HV tomorrow after 10 AM if possible. Tre[place] [facility] today, for F/u leaking, stated is [...] son Jame Wing. Member is 78 y/o [place]ruguayan speaking female who resides on [facility] with her son. Member has multiple [...] sees her BH counselor weekly and Prescriber HELPDESK MANAGER Kirby monthly if needed or every 2-3 months, .................... .................... .................... .................... .................... .................... .................... . [facility] Nurse Triage Notes (Zafar Irving): Comments: Reviewed HPI .................... .................... .................... .................... .................... .................... .................... . Workshop Manager Note From [place]: Pt sts doesn? [...] appt Friday. Pt son was used as funeral service apprentice. Pt education on signs indicating the ER. Workshop Manager Allergies: Clindamycin .................... .................... .................... .................... .................... .................... .................... . Disposition: Fulfilled Rohit Benton MD [address] [facility], [place], [address], [employer] 02/06/2024 17:58:19 OBGyn Episode No OBEpisode recorded.
--- OUTSIDE RECORDS SUMMARY | 2025-03-07 06:22 | XMS_ITS | Encounter Summary ---
Author Organization [facility] Address [address] [facility] [address] [place] [address] Care Team Providers Care Pipe And Test Supervisor Name Role Phone Name, Nitin PIKE Primary Care Provider [phone] Encounter Details Date Type Department Care Team ([facility] Contact Info) Description 08/08/2023 Telephone [facility] MEDICINE [address] [place] [address] [phone] Name, MD Nitin [address] [place] [address] [phone] Social History Tobacco Use Types Packs/Day Years [...] EDT Office Visit [facility] [address] [place] [address] [phone] NameNitin MD [address] [place] [address] [phone] documented as of this encounter Visit Diagnoses Not on filedocumented in this encounter Additional Health Concerns Assessment Noted Time PHQ-9 Depression Total Score: 12 023 9:37 AM EDT documented as of this encounter Care Teams Pipe And Test Supervisor Relationship Specialty Start Date End Date Name, MD Nitin 230 [place] [address] PCP - General Family Medicine 08/26/17 [facility] 09/01/24 documented as of this encounter
--- OUTSIDE RECORDS SUMMARY | 2025-03-07 06:22 | XMS_ITS | Encounter Summary ---
Author Organization [employer] Address [address] [facility] 7[address] [place] [address] Care Team Providers Care City Auditor Name Role Phone Name, Nitin PIKE Primary Care Provider [phone] Encounter Details Date Type Department Care Team ([facility] Contact Info) Description 12/17/2022 Orders Only [facility] [address] [place], [place] [phone] Lisha Kelly LPN Social History Tobacco Use [...] Description 04/29/2025 10:00 AM EDT Office Visit [facility] MEDICINE 230 [place] [address] NameNitin MD 230 [place] [address] documented as of this encounter Visit Diagnoses Not on filedocumented in this encounter Care Teams City Auditor Relationship Specialty Start Date End Date NameNitin MD 230 [place] [address] PCP - General Family Medicine 08/26/17 [facility] 09/01/24 documented as of this encounter
--- OUTSIDE RECORDS SUMMARY | 2025-03-07 06:22 | XMS_ITS | Encounter Summary ---
Author Organization [employer] Address [address] [facility] [address] [place] [address] Care Team Providers Care Costume Rental Clerk Name Role Phone Name, Nitin PIKE Primary Care Provider [phone] Reason for Visit * Reason Onset Date Comments triage 12/18/2022 Encounter Details Date Type Department Care Team ([facility] st Contact Info) Description 12/18/[address] [facility] MEDICINE 230 [place], [place] [phone] Name, MD Nitin 230 [place] [address] triage Social History Tobacco Use Types Packs/Day [...] 12/18/2022 2:35 PM EST Called pt. Via [employer] putty worker [id number] Eduardo. Pt. States that she has a [...] phone. Please reach out to pt. With Kosovan speaking another time to see what her [...] 04/29/2025 10:00 AM EDT Office Visit [facility] MEDICINE [address] [place] [phone] Name, MD Nitin [address] [place] [address] documented as of this encounter Visit Diagnoses Not on filedocumented in this encounter Care Teams Costume Rental Clerk Relationship Specialty Start Date End Date Name, MD Nitin [address] [place] [address] PCP - General Family Medicine 08/26/17 [facility] 09/01/24 documented as of this encounter
--- OUTSIDE RECORDS SUMMARY | 2025-03-07 06:22 | XMS_ITS | Encounter Summary ---
Author Organization [employer] Address [address] [facility] 7[address] [place] [address] Care Team Providers Care Vp Scientific Affairs Name Role Phone Name, Nitin PIKE Primary Care Provider [phone] Reason for Visit * Reason Onset Date Comments Durable Medical Equipment 12/09/2023 Encounter Details Date Type Department Care Team ([facility] st Contact Info) Description 12/09/2023 Telephone [facility] MEDICINE 230 [place], [place] [phone] Name, MD Nitin [address] [place], [place] [phone] Durable Medical Equipment Social History Tobacco Use [...] 10:11 AM EST DME rx faxed to [facility] as requested. RN will consult with S nurse and provide referral. * Telephone Encounter - Fozia Jacob RN - 12/09/2023 4:58 PM EST Call returned to [facility] at [facility] [phone] ext. [phone]. [facility] states that [facility] attempted to provide PT at home but pt refused. [facility] pt is requesting outpatient PT. [facility] pt is seeing a counselor more regularly and has agreed to VNA referral. Reports pt has had 3 falls in the past 2 months. [facility] states [facility] no longer has visiting nurses. [facility] recommends [facility] or [facility] for VNA referral. [facility] also requesting DME rx for rollator walker and a straight cane. Requests that DME rx be faxed to [phone]. Advised requests will be sent to pcp. * Telephone Encounter - Adithya Solorzano - 12/09/2023 4:25 PM EST Tc from [facility] requesting DME: Rollator walker . documented in this encounter Plan of Treatment Upcoming Encounters Date Type Department Care Team (Late st Contact Info) Description 04/29/2025 10:00 AM EDT Office Visit [facility] MEDICINE [address] [place] [address] Name, MD Nitin [address] [place] [address] documented as of this encounter Visit Diagnoses Not on filedocumented in this encounter Additional Health Concerns Assessment Noted Time PHQ-9 Depression Total Score: 12 023 9:37 AM EDT documented as of this encounter Care Teams Vp Scientific Affairs Relationship Specialty Start Date End Date Name, MD Nitin [address] [place] [address] PCP - General Family Medicine 08/26/17 [facility] 09/01/24 documented as of this encounter
--- OUTSIDE RECORDS SUMMARY | 2025-03-07 06:22 | XMS_ITS | Encounter Summary ---
Author Organization [employer] Address [address] [facility] [address] [place] [address] Care Team Providers Care Field Installation Technician Name Role Phone Name, Nitin PIKE Primary Care Provider [phone] Encounter Details Date Type Department Care Team (Late st Contact Info) Description 11/06/2022 Orders Only [facility] MED [facility] PEDS [address] [place] [address] Lisha Kelly LPN Social History Tobacco Use [...] EDT Office Visit [facility] MEDICINE 230 [place] [address] NameNitin MD 230 [place] [address] documented as of this encounter Visit Diagnoses Not on filedocumented in this encounter Care Teams Field Installation Technician Relationship Specialty Start Date End Date Nitin Echevarria MD 230 [place] [address] PCP - General Family Medicine 08/26/17 [facility] 09/01/24 documented as of this encounter
--- OUTSIDE RECORDS SUMMARY | 2025-03-07 06:22 | XMS_ITS | Encounter Summary ---
Author Organization [employer] Address [address] [facility] 7[address] [place] [address] Care Team Providers Care Dumb Waiter Operator Name Role Phone Name, Nitin PIKE Primary Care Provider [phone] Reason for Visit * Reason Onset Date Comments FYI 08/11/2024 Encounter Details Date Type Department Care Team ([facility] st Contact Info) Description 08/11/2024 Telephone [facility] MEDICINE 230 [place], [place] [phone] Name, MD Nitin 230 [place] [address] FYI Social History Tobacco Use Types Packs/Day [...] any questions or concerns contact Darryl at [phone] documented in this encounter Plan of Treatment Upcoming Encounters Date Type Department Care Team ([facility] st Contact Info) Description 04/29/2025 10:00 AM EDT Office Visit [facility] MEDICINE [address] [place] [address] Name, MD Nitin [address] [place] [address] documented as of this encounter Visit Diagnoses Not on filedocumented in this encounter Additional Health Concerns Assessment Noted Time PHQ-9 Depression Total Score: 6 02/13/20 24 9:14 AM EDT documented as of this encounter Care Teams Dumb Waiter Operator Relationship Specialty Start Date End Date Name, MD Nitin [address] [place] [address] PCP - General Family Medicine 08/26/17 [facility] 09/01/24 documented as of this encounter
--- OUTSIDE RECORDS SUMMARY | 2025-03-07 06:22 | XMS_ITS | Encounter Summary ---
Author Organization [employer] Address [address] [facility] [address] [place] [address] Care Team Providers Care Wwe Wrestler Name Role Phone Name, Nitin PIKE Primary Care Provider Reason for Visit * Reason Comments Med Refill Encounter Details Date Type Department Care Team ([facility] st Contact Info) Description 08/16/2024 Refill [facility] MED & PEDS [address] [place], [place] [phone] Name, MD Nitin 230 [place] [address] Heartburn Social History Tobacco Use Types Packs/Day [...] 10:00 AM EDT Office Visit [facility] MEDICINE [address] [place] [phone] NameNitin MD 230 [place] [address] documented as of this encounter Visit Diagnoses Diagnosis Heartburn documented in this encounter Additional Health Concerns Assessment Noted Time PHQ-9 Depression Total Score: 6 02/13/20 9:14 AM EDT documented as of this encounter Care Teams Wwe Wrestler Relationship Specialty Start Date End Date NameNitin MD [address] [place] [address] PCP - General Family Medicine 08/26/17 [facility] 09/01/24 documented as of this encounter
--- OUTSIDE RECORDS SUMMARY | 2025-03-07 06:22 | XMS_ITS | Encounter Summary ---
Author Organization [employer] Address [address] [facility] 7[address] [place] [address] Care Team Providers Care Employment Educational Coord Name Role Phone Name, Nitin PIKE Primary Care Provider [phone] Reason for Visit * Reason Comments Med Refill Encounter Details Date Type Department Care Team (Late st Contact Info) Description 01/09/2025 Refill [facility] [address] [place] [address] [phone] Name, MD Nitin [address] [place] [address] Hypertension, unspecified type Social History Tobacco Use [...] Description 04/29/2025 10:00 AM EDT Office Visit [facility] MEDICINE [address] [place] [phone] NameNitin MD 230 [place] [address] documented as of this encounter Visit Diagnoses Diagnosis Hypertension, unspecified type documented in this encounter Additional Health Concerns Assessment Noted Time PHQ-9 Depression Total Score: 6 02/13/20 9:14 AM EDT documented as of this encounter Care Teams Employment Educational Coord Relationship Specialty Start Date End Date Name, MD Nitin [address] [place] [address] PCP - General Family Medicine 08/26/17 [facility] 09/01/24 documented as of this encounter
--- OUTSIDE RECORDS SUMMARY | 2025-03-07 06:22 | XMS_ITS | Encounter Summary ---
Author Organization [employer] Address [address] [facility] 7[address] [place] [address] Care Team Providers Care Environmental Service Aide Name Role Phone Name, Nitin PIKE Primary Care Provider [phone] Reason for Visit * Reason Onset Date Comments Verbal Orders 12/15/2023 Encounter Details Date Type Department Care Team ([facility] st Contact Info) Description 12/15/2023 Telephone [facility] MEDICINE 230 [place], [place] [phone] Name, MD Nitin 230 [place] [address] Verbal Orders Social History Tobacco Use Types [...] 12:03 PM EST Tc from [facility] with [facility] requesting verbal order to see pt 2 times a week for 4 weeks for Occupational Therapy, please contact Josseline at [phone] documented in this encounter Plan of Treatment Upcoming Encounters Date Type Department Care Team (Late st Contact Info) Description 04/29/2025 10:00 AM EDT Office Visit [facility] MEDICINE 230 [place] [address] Name, MD Nitin 230 [place] [address] documented as of this encounter Visit Diagnoses Not on filedocumented in this encounter Additional Health Concerns Assessment Noted Time PHQ-9 Depression Total Score: 12 023 9:37 AM EDT documented as of this encounter Care Teams Environmental Service Aide Relationship Specialty Start Date End Date NameNitin MD 230 [place] [address] PCP - General Family Medicine 08/26/17 [facility] 09/01/24 documented as of this encounter
--- OUTSIDE RECORDS SUMMARY | 2025-03-07 06:22 | XMS_ITS | Encounter Summary ---
Author Organization [employer] [facility] Address [address] [facility] 7[address] [place] [address] Care Team Providers Care Welfare Aide Name Role Phone NameNitin MD Primary Care Provider [phone] Encounter Details Date Type Department Care Team (Late st Contact Info) Description 05/26/2023 Orders Only [facility] MEDICINE [address] [place] [address] [phone] Noreen Fox MD [address] [place] [phone] Social History Tobacco Use Types Packs/Day Years [...] Description 04/29/2025 10:00 AM EDT Office Visit [facility] MEDICINE [address] [place] [address] [phone] Name, MD Nitin 230 [place] [address] documented as of this encounter Visit Diagnoses Not on filedocumented in this encounter Care Teams Welfare Aide Relationship Specialty Start Date End Date Name, MD Nitin 230 [place] [address] PCP - General Family Medicine 08/26/17 [facility] 09/01/24 documented as of this encounter
--- OUTSIDE RECORDS SUMMARY | 2025-03-07 06:22 | XMS_ITS | Clinical Summary ---
Author Organization [employer] Address [address] [facility] [address] [place] [address] Care Team Providers Care Refractory Furnace Designer Name Role Phone Name, Nitin PIKE Primary Care Provider [phone] Allergies Active Allergy Reactions Criticality Noted Date [...] MOUTH EVERY 8 HOURS NEEDED FOR PAIN (TAMAZIGHT LABEL) 90 tablet 024 Active ammonium lactate [...] BREAKFAST 90 capsule 1 024 2024 Discontinued Ferrous Sulfate (iron) 325 (65 Fe) MG [...] because it calms her down. I called [facility] pharmacy to attempt a med rec they instructed me that she is on med box and one week at a time prescriptions because she would break into her med boxes to take more Ambien or xanax. She is being seen by Izzy Perea at [facility]. He is aware of her behavior and [...] left I received a call from the [facility] pharmacy instructing me that she was at [...] Type Department Care Team Description 02/23/2025 Refill [facility] [address] [place] [address] Name, MD Nitin Vitamin D deficiency 02/22/2025 8:40 AM EDT Office Visit [facility] [address] [place] [address] Zechariah Cheung MD Chronic rhinitis (Primary Dx); Tinnitus of both ears; Chronic left ear pain; Allergic rhinitis, unspecified seasonality, unspecified trigger 02/22/2025 Travel 02/14/2025 9:00 AM EDT Office Visit [facility] [address] [place] [address] Delfina Romero MD 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); Viral upper respiratory tract infection 02/14/2025 Travel 02/14/2025 Refill [facility] [address] [place] [address] Nitin Echevarria MD Heartburn 02/14/2025 Orders Only GENERIC EXTERNAL DATA DEPARTMENT Provider, Generic External Data 02/11/2025 Refill [facility] [address] [place] [address] Nitin Echevarria MD Generalized anxiety disorder with panic attacks 02/07/2025 Orders Only GENERIC EXTERNAL DATA DEPARTMENT Provider, Generic External Data 02/06/2025 Orders Only GENERIC EXTERNAL DATA DEPARTMENT Provider, Generic External Data 02/02/2025 Refill [facility] [address] [place] [address] Nitin Echevarria MD Chronic constipation; Vertigo 02/01/2025 Refill [facility] [address] [place] [address] Nitin Echevarria MD Generalized anxiety disorder with panic attacks 01/31/2025 9:20 AM EDT Office Visit [facility] [address] [place] [address] Karely Patiño MD Impacted cerumen of left ear (Primary Dx) 01/24/2025 Refill [facility] [address] [place] [address] Nitin Echevarria MD Generalized anxiety disorder with panic attacks; Hypertension, unspecified type 01/10/2025 11:00 AM EST Office Visit [facility] [address] [place] [address] Nitin Echevarria MD Generalized anxiety disorder with panic attacks (Primary Dx); Cerumen debris on tympanic membrane of both ears 01/10/2025 Travel 01/09/2025 Refill [facility] [address] [place] [address] Nitin Echevarria MD Hypertension, unspecified type 01/05/2025 Telephone [facility] [address] [place] [address] Name, MD Nitin chartprep 01/03/2025 Refill [facility] [address] [place] [address] Name, MD Nitin Vertigo; Vitamin D deficiency 12/26/2024 Refill [facility] [address] [place] [address] Name, MD Nitin Prediabetes 12/17/2024 Refill [facility] [address] [place] [address] Daphne Fofana MD Chronic constipation; Vitamin D deficiency from Last 3 Months Immunizations Name Administration [...] Description 04/29/2025 10:00 AM EDT Office Visit [facility] [address] [place] [address] Name, MD Nitin [address] [place] [address] Health Maintenance Due Date Last Done Comments [...] NOW Rapid Molecular) (02/22/2025 8:58 AM EDT) Influenza B Negative Negative, Indeterminate [facility] Swab 02/22/2025 8:58 AM EDT us Zechariah Cheung MD POINT OF CARE TEST ENTER/EDIT OR DERABLES Final Result Performing Organization Address [facility] Co de Phone Number [facility] [address] [place] [phone] * Influenza A (ID NOW Rapid Molecular) (02/22/2025 8:58 AM EDT) Influenza A Negative Negative, Indeterminate [facility] Swab 02/22/2025 8:58 AM EDT us Zechariah Cheung MD POINT OF CARE TEST ENTER/EDIT OR DERABLES Final Result Performing Organization Address [facility] Co de Phone Number [facility] [address] [place] [address] [phone] * POCT Rapid COVID Ag (02/22/2025 8:58 AM EDT) Rapid COVID Ag Negative [facility] Swab 02/22/2025 8:58 AM EDT Zechariah Cheung MD POINT OF CARE TEST ENTER/EDIT OR DERABLES Final Result Performing Organization Address [facility]/ZIP Co de Phone Number [facility] [address] [place] [address] [phone] * POCT rapid strep A manually resulted (02/22/2025 8:58 AM EDT) [facility] Rapid Strep A Screen Negative Negative, None Detected [facility] Swab 02/22/2025 8:58 AM EDT Zechariah Cheung MD POINT OF CARE TEST ENTER/EDIT OR DERABLES Final Result Performing Organization Address [facility] Co de Phone Number [facility] [address] [place] [address] [phone] * XR Chest 1 View (02/14/2025 2:56 AM EDT) Anatomical Region Laterality Modality Chest Radiographic Lauren ging 02/14/2025 2:56 AM EDT Narrative 02/14/2025 2:58 AM EDT ? [facility] ?[address] ?[place] [address] ?XRay Report ? Signed ? Patient: Wing,Noreen ?MR#: [id number] ? : 1945 ?Acct:[id number] ? Age/Sex: 79 / F ?ADM Date: 04/07/25 ? Loc: HO.ED ? Attending Dr: ? Ordering Physician: Generic ED Physician ?? Date of Service: 02/14/25 ?? Procedure(s): XR chest 1V ?? Accession Number(s): [id number] ? cc: Generic ED Physician; [facility] ? CLINICAL HISTORY: sob ? 1 [...] DD/ 0256 ? TD/TT: 02/14/25 0256 ? Eyeglass Frames Polisher: ? Procedure Note Donotuseinterpreter, Image - 02/14/2025 [place] [address] XRay Report Signed Patient: Jennifre Wing#: [id number] : 1945cct:[id number] Age/Sex: 79 / FADM Date: 02/14/25 Loc: HO.ED Attending Dr: Ordering Physician: Generic ED Physician Date of Service: 02/14/25 Procedure(s): XR chest 1V Accession Number(s): [id number] cc: Generic ED Physician; [facility] CLINICAL HISTORY: sob 1 view chest [...] signed by Kenyon Hatch MD in OV> 02/14/25256 DD/ 5 TD/TT: 02/14/25255 Eyeglass Frames Polisher: [facility] External Provider IMG XR PROCEDURES Edited Result - Final * Strep A Nucleic Acid (02/14/2025 12:10 AM EDT) [employer]NOW SERIAL# [id number] [facility] Strep A Nucleic Acid Negative Negative [facility] Comment:All test results mus t be [...] LAB MICROBIOLOGY - GENERAL ORDERABLES Final Result [facility] [address] [place] [phone] * SARS-CoV-2 RNA, Influenza A/B, and RSV RNA, Ql NAAT (02/14/2025 12:10 AM EDT) Influenza A PCR NEGATIVE Negative [facility] Influenza B PCR NEGATIVE Negative [facility] Resp Syncy Virus RNA Qual PCR NEGATIVE Negative [facility] SARS COV2 PCR NEGATIVE Negative [facility] [...] use by authorized laboratories.Testing performed on the [employer] GeneXpert utilizingreal-time RT-PCR.All SARS CoV2 and positive influenza A/B results arereported to [facility]. 02/14/2025 12:1 0 AM EDT 02/14/2025 12:13 AM EDT us Generic External Data Provider LAB MICROBIOLOGY - GENERAL ORDERABLES Final Result [facility] [address] [place] [address] [phone] * XR KUB and Upright 2 Views (02/07/2025 12:53 AM EDT) Anatomical Region Laterality Modality Radiographic Lauren ging 02/07/2025 12:5 3 AM EDT Narrative 02/07/2025 12:55 AM EDT ? [facility] ?[address] ?[place] [address] ?XRay Report ? Signed ? Patient: Wing,Noreen ?MR#: [id number] ? : 1945 ?Acct:[id number] ? Age/Sex: 79 / F ?ADM Date: 02/06/25 ? Loc: HO.ED ? Attending Dr: ? Ordering Physician: Jeanne Shen ?? Date of Service: 02/07/25 ?? Procedure(s): XR KUB ?? Accession Number(s): [id number] ? cc: Jeanne Shen; [facility] ? CLINICAL HISTORY: pain ? [...] DD/ 0053 ? TD/TT: 02/07/25 0053 ? Eyeglass Frames Polisher: ? Procedure Note Ac, Image - 02/07/[address] [address] XRay Report Signed Patient: Noreen WingMR#: [id number] : 1945cct:[id number] Age/Sex: 79 / FADM Date: 02/06/25 Loc: HO.ED Attending Dr: Ordering Physician: Jeanne Shen Date of Service: 02/07/25 Procedure(s): XR KUB Accession Number(s): [id number] cc: Jeanne Shen; [facility] CLINICAL HISTORY: pain 1 view abdomen Comparison: None Findings: No acute fractures. Degenerative changes in the hips and pelvis, with heterotopic ossification along the right hip. Large colonic stool burden. Nonobstructive bowel-gas pattern. IMPRESSION: Large colonic stool burden. This document has been electronically signed by: Jontahon Cortés MD on 02/07/2025 00:53:27 Dictated By: Jonathon Cortés MD Signed By: <Electronically signed by Jonathon Cortés MD in OV> 02/07/2553 DD/ TD/TT: 02/07/2552 Eyeglass Frames Polisher: [facility] External Provider IMG XR PROCEDURES Edited Result - Final * Culture, Urine, Routine (02/07/2025 12:00 AM EDT) Urine Urine specimen obtained by clean catch procedure / Unknown 02/07/2025 02/07/2025 Comment:UACC Narrative [facility] - 02/08/2025 8:36 AM EDT Urine Culture Report Result Urine Culture 50,000 to 100,000 cfu/ml Urine Culture Mixed bacterial jann characteristic of Urine Culture urogenital contamination. Specimen Source: Urine clean catch Generic External Data Provider LAB MICROBIOLOGY - GENERAL ORDERABLES Final Result [facility] [address] [place] [phone] * (ABNORMAL) Urinalysis, Complete, with Reflex to Culture (02/06/2025 11:50 PM EDT) Color Urine Yellow [facility] Appearance Urine Hazy [facility] PH 6.0 5.0 - 9.0 [facility] Glucose Urine UA Negative Negative mg/dL [facility] Urine Blood Trace Negative [facility] Specific [place] - Urine 1.020 1.005 - 1.025 [facility] Urine Protein Negative Neg-Trace mg/dL [facility] Urine Ketones Negative Negative mg/dL [facility] Nitrite Urine Negative Negative [facility] Leukocyte Esterase Urine Moderate (2+)(A) Negative [facility] RBC Urine 0-2 0 - 2 /HPF [facility] Urine WBC 11-20(A) 0 - 5 /HPF [facility] Urine Squamous Epithelial Cell 6-10 0 - 2 /HPF [facility] Urine Bacteria 2+ None Seen [facility] Hyaline Casts, Urine 0-2 0 - 2 /LPF [facility] 02/06/2025 11:5 0 PM EDT 02/06/2025 11:56 PM EDT Narrative [facility] - 02/07/2025 12:13 AM EDT Urine, Clean Catch Generic External Data Provider LAB URINE ORDERAB LES Final Result Performing Organization Address City/State/[facility] Co de Phone Number [facility] [address] [place] [phone] * POCT Glucose (01/10/2025 11:03 AM EST) Glucose Blood, POC 110 60 - 200 mg/dL QC Media Lot # [id number] Lot# Expiration Date Blood Capillary blood specimen / Unknown 01/10/2025 11:03 AM EST us Nitin Name POINT OF CARE TEST ENTER/EDIT OR DERABLES Final Result * POCT HGB A1C (01/10/2025 11:02 AM EST) Hemoglobin A1C 5.1 4.0 - 6.0 % QC Media Lot # [id number] Lot# Expiration Date Blood 01/10/2025 11:0 2 [...] ?? Jack RAYO et al. JITENDRA. 2013;310(19): 3174-1189 ?? (http://education.[employer]/faq/QJC606) Non-HDL Cholesterol 88 <130 mg/dL (calc) [facility] Comment: For patients with diabetes plus 1 major ASCVD risk ?? factor, treating to a non-HDL-C goal of <100 mg/dL ?? (LDL-C of <70 mg/dL) is considered a therapeutic ?? option. Triglycerides 143 <150 mg/dL [facility] 09/19/2022 8:08 AM EST Karely Patiño MD LAB BLOOD ORDERABLES Final Resul t [facility] from Last 3 Months or Most Recently Relevant to Health Maintenance Insurance [facility] [employer] OPTIONS (O D-SNP) [facility] [employer] OPTIONS (O D-SNP) Care Teams Refractory Furnace Designer Relationship Specialty Start Date End Date Name, MD Nitin [address] [place] [address] PCP - General Family Medicine 08/26/17 [facility] 09/01/24
--- OUTSIDE RECORDS SUMMARY | 2025-03-07 06:22 | XMS_ITS | Encounter Summary ---
Author Organization [employer] Address [address] [facility] [address] [place] [address] Care Team Providers Care Wire Hanger Name Role Phone Name, Nitin PIKE Primary Care Provider [phone] Reason for Visit * Reason Onset Date Comments FYI 01/21/2024 ER Follow-up 01/21/2024 Encounter Details Date Type Department Care Team ([facility] st Contact Info) Description 01/21/2024 Telephone [facility] [address] [place], [place] [phone] Name, MD Nitin [address] [place] [address] FYI; ER Follow-up Social History Tobacco Use [...] - 01/21/2024 1:54 PM EDT Message from [facility] ED noted. [facility] note sent to medical records. PCP does not rx Trazodone. Pt to f/u with psych prescriber. Pt is scheduled for f/u with pcp 02/13/24. * Telephone Encounter - Janette Huitron - 01/21/2024 9:45 AM EDT Tc from [facility] ED calling in regards to pt. States pt was seen today for anxiety and is requesting trazodone. Will discharge pt with no medication change. Would also like to advise provider, pt was seen at [facility] on 01/17 for anxiety/insomnia as well documented in this encounter Plan of Treatment Upcoming Encounters Date Type Department Care Team (Late st Contact Info) Description 04/29/2025 10:00 AM EDT Office Visit [facility] MED[facility] [address] [place] [address] Name, MD Nitin [address] [place] [address] documented as of this encounter Visit Diagnoses Not on filedocumented in this encounter Additional Health Concerns Assessment Noted Time PHQ-9 Depression Total Score: 12 023 9:37 AM EDT documented as of this encounter Care Teams Wire Hanger Relationship Specialty Start Date End Date Name, MD Nitin [address] [place] [address] PCP - General Family Medicine 08/26/17 [facility] 09/01/24 documented as of this encounter
--- OUTSIDE RECORDS SUMMARY | 2025-03-07 06:22 | XMS_ITS | Encounter Summary ---
Author Organization [employer] Address [address] [facility] [address] [place] [address] Care Team Providers Care Gear Cutter Name Role Phone Name, Nitin PIKE Primary Care Provider [phone] Reason for Visit * Reason Onset Date Comments Results 08/29/2023 Encounter Details Date Type Department Care Team ([facility] st Contact Info) Description 08/29/2023 Telephone [facility] MED[facility]INE [address] [place], [place] [phone] Name, MD Nitin [address] [place] [address] Results Social History Tobacco Use Types Packs/Day [...] 09/01/2023 11:51 AM EDT Pt evaluated in [facility] today and is scheduled with pcp 09/03/23. * Telephone Encounter - Janette Huitron - 08/29/2023 4:06 PM EDT Tc from pt requesting a call in regards to urine results. Please contact pt at [phone] (Maltese) documented in this encounter Plan of Treatment Upcoming Encounters Date Type Department Care Team (Late st Contact Info) Description 04/29/2025 10:00 AM EDT Office Visit [facility] [address] [place] [address] Name, MD Nitin [address] [place] [address] documented as of this encounter Visit Diagnoses Not on filedocumented in this encounter Additional Health Concerns Assessment Noted Time PHQ-9 Depression Total Score: 12 023 9:37 AM EDT documented as of this encounter Care Teams Gear Cutter Relationship Specialty Start Date End Date NameNitin MD [address] [place] [address] PCP - General Family Medicine 08/26/17 [facility] 09/01/24 documented as of this encounter
--- OUTSIDE RECORDS SUMMARY | 2025-03-07 06:23 | XMS_ITS | Encounter Summary ---
Author Organization [employer] Address [address] [facility] [address] [place] [address] Care Team Providers Care Pyrometer Temperature Regulator Name Role Phone Name, Nitin PIKE Primary Care Provider [phone] Reason for Visit * Reason Onset Date Comments Verbal Orders 01/02/2024 Encounter Details Date Type Department Care Team ([facility] st Contact Info) Description 01/02/2024 Telephone [facility] MEDICINE [address] [place], [place] [phone] Name, MD Nitin [address] [place] [address] Verbal Orders Social History Tobacco Use Types [...] No answer. LVM to call back on [phone]. * Telephone Encounter - Melany Santos RN - 01/06/2024 10:25 AM EST Please review and advise for below request. * Telephone Encounter - Deana Bazzi - 01/02/2024 3:44 PM EST Tc from [facility] with S requesting verbal orders for discharge pt from Occupational Therapy, due to pt refuses services, please contact [facility] at [phone]. documented in this encounter Plan of Treatment Upcoming Encounters Date Type Department Care Team (Late st Contact Info) Description 04/29/2025 10:00 AM EDT Office Visit [facility] MEDICINE [address] [place] [address] Name, MD Nitin [address] [place] [address] documented as of this encounter Visit Diagnoses Not on filedocumented in this encounter Additional Health Concerns Assessment Noted Time PHQ-9 Depression Total Score: 12 023 9:37 AM EDT documented as of this encounter Care Teams Pyrometer Temperature Regulator Relationship Specialty Start Date End Date Name, MD Nitin [address] [place] [address] PCP - General Family Medicine 08/26/17 [facility] 09/01/24 documented as of this encounter
--- OUTSIDE RECORDS SUMMARY | 2025-03-07 06:23 | XMS_ITS | Encounter Summary ---
Author Organization [employer] Address [address] [facility] [address] [place] [address] Care Team Providers Care Event Host Name Role Phone Name, Nitin PIKE Primary Care Provider [phone] Encounter Details Date Type Department Care Team ([facility] Contact Info) Description 01/06/2023 Orders Only [facility] [address] [place], [place] [phone] Lisha Kelly LPN Social History Tobacco Use [...] 10:00 AM EDT Office Visit [facility] MEDICINE [address] [place], [place] [phone] NameNitin MD [address] [place] [address] documented as of this encounter Visit Diagnoses Not on filedocumented in this encounter Care Teams Event Host Relationship Specialty Start Date End Date NameNitin MD [address] [place] [address] PCP - General Family Medicine 08/26/17 [facility] 09/01/24 documented as of this encounter
--- OUTSIDE RECORDS SUMMARY | 2025-03-07 06:23 | XMS_ITS | Encounter Summary ---
Author Organization [employer] Address [address] [facility] [address] [place] [address] Care Team Providers Care Plate Sensitizer Name Role Phone Name, Nitin PIKE Primary Care Provider [phone] Reason for Visit * Reason Comments Med Refill Encounter Details Date Type Department Care Team (Late Contact Info) Description 03/02/2023 Refill [facility] MEDICINE [address] [place] [phone] Karely Patiño MD [address] [place] [address] [phone] Social History Tobacco Use Types Packs/Day Years [...] Description 04/29/2025 10:00 AM EDT Office Visit [facility] MEDICINE [address] [place] [phone] Wale, MD Nitin [address] [place] [phone] documented as of this encounter Visit Diagnoses Not on filedocumented in this encounter Care Teams Plate Sensitizer Relationship Specialty Start Date End Date Name, MD Nitin [address] [place] [address] PCP - General Family Medicine 08/26/17 [facility] 09/01/24 documented as of this encounter
--- NOTE | 2025-03-07 06:46 | ED.ANXIETY ---
HPI - Anxiety General Chief Complaint: Anxiety Stated Complaint: Anxiety, Bp 158/78 Time Seen by Provider: 03/07/25 06:44 Source: patient Mode of arrival: EMS Limitations: language barrier History of Present Illness ED Provider: Dr. Moses Torres HPI narrative: 79-year-old female who presents emergency department for evaluation of anxiety, elevated blood pressure, headache and left ear pain. Patient was seen frequently here in the emergency department for anxiety. The patient states that she was in [place] 2 days prior and left her medications in [place]. She states she did not take any of her medications yesterday. Patient states that her blood pressure was high, she had a diffuse headache and her anxiety was elevated since she did not take her antihypertensive for antianxiety medication. She states she has a diffuse, pounding headache and 10 this in her left ear. She states that she was had similar headaches in the past and she was had tinnitus for many years. She was also complaining of extreme anxiety. Related Data Home Medications ?Medication ?Instructions ?Recorded ?Confirmed mirtazapine 45 mg tablet 45 mg PO BEDTIME 08/09/20 09/29/24 omeprazole 20 mg tablet,delayed 20 mg PO DAILY@0630 08/09/20 09/29/24 release aspirin 81 mg tablet,delayed 81 mg PO QAM 01/28/24 09/29/24 release bisacodyl 5 mg tablet,delayed 5 mg PO DAILY PRN constipation 01/28/24 09/29/24 release diphenhydramine HCl 25 mg tablet 25 mg PO BEDTIME PRN itch 01/28/24 09/29/24 (Lou-Dryl) ferrous sulfate 325 mg (65 mg 325 mg PO DAILY 01/28/24 09/29/24 iron) tablet (FeroSul) melatonin 10 mg tablet,extended 10 mg PO BEDTIME PRN Insomnia 01/28/24 09/29/24 release multivitamin 1 tab PO QAM 01/28/24 09/29/24 rosuvastatin 20 mg tablet 20 mg PO BEDTIME 01/28/24 09/29/24 trazodone 50 mg tablet 50 mg PO BEDTIME 01/28/24 09/29/24 amlodipine 10 mg tablet 10 mg PO DAILY 02/09/24 09/29/24 acetaminophen 500 mg tablet 500 mg PO Q8H PRN pain 08/09/24 09/29/24 ipratropium bromide 21 mcg (0.03 2 spray intranasal BID 08/09/24 09/29/24 %) nasal spray zolpidem 5 mg tablet 5 mg PO BEDTIME PRN Insomnia 08/09/24 09/29/24 cholecalciferol (vitamin D3) 25 25 mcg PO DAILY 08/20/24 09/29/24 mcg (1,000 unit) tablet meclizine 25 mg tablet 25 mg PO DAILY PRN 09/29/24 09/29/24 Previous Rx's ?Medication ?Instructions ?Recorded metoprolol succinate 50 mg 50 mg PO DAILY #90 tabs 09/28/20 tablet,extended release 24 hr fluticasone propionate 50 2 spray intranasal DAILY #16 grams 09/16/23 mcg/actuation nasal spray,suspension (Flonase Allergy Relief) ondansetron 4 mg disintegrating 4 mg PO Q6H PRN nausea and 04/28/24 tablet vomiting #10 tabs hydroxyzine HCl 25 mg tablet 25 mg PO TID PRN anxiety #6 tabs 08/07/24 clonazepam 0.5 mg tablet 0.5 mg PO TID #180 tabs 08/10/24 gabapentin 100 mg capsule 100 mg PO TID #180 caps 08/10/24 hydroxyzine HCl 25 mg tablet 25 mg PO TID PRN anxiety #20 tabs 09/09/24 miconazole nitrate 2 % vaginal 1 appful vaginal BEDTIME 7 days 10/09/24 cream (Monistat 7) #45 grams nitrofurantoin 100 mg PO Q12H 3 days #6 caps 10/09/24 monohydrate/macrocrystals 100 mg capsule (Macrobid) miconazole nitrate 2 % topical 1 appl topical BID #28 grams 01/01/25 cream valsartan 160 mg tablet 160 mg PO DAILY #90 tabs 01/20/25 ofloxacin 0.3 % ear drops 10 drp otic (ears) DAILY 7 days #5 02/01/25 mL docusate sodium 100 mg capsule 200 mg (2 x 100 mg) PO BID #30 caps 02/07/25 (Col-Rite) polyethylene glycol 3350 17 17 g PO Q8H #238 grams 02/07/25 gram/dose oral powder (ClearLax) white petrolatum 41 % topical 1 appl topical BID PRN irritated 02/07/25 ointment (Advanced Healing skin #50 grams (Petrolatum)) azithromycin 250 mg tablet 250 mg PO DAILY 4 days #4 tabs 02/14/25 (Zithromax) docusate sodium 100 mg capsule 200 mg (2 x 100 mg) PO BID #20 caps 02/24/25 (Colace) polyethylene glycol 3350 17 17 g PO BID #119 grams 02/24/25 gram/dose oral powder (Miralax) simethicone 180 mg capsule 180 mg PO BID PRN abdominal 03/03/25 distention #14 caps Allergies Allergy/AdvReac Type Severity Reaction Status Date / Time penicillin G [Penicillin G] Allergy Severe ITCHY/RASH Verified 03/07/25 06:13 Sulfa (Sulfonamide Allergy Severe ITCHY,RASH, Verified 03/07/25 06:13 Antibiotics) rash [Sulfa (Sulfonamides)] trimethoprim [From Bactrim] Allergy Severe HIVES Verified 03/07/25 06:13 Penicillins Allergy Intermediate Hives Verified 03/07/25 06:13 sulfamethoxazole Allergy Mild Hives Verified 03/07/25 06:13 [From Bactrim] Review of Systems Review of Systems: Yes all other systems are reviewed and are negative [facility] Past Medical History 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) Unable to assess alcohol history related to: Unknown Alcohol intake: never Patient Tobacco Use Status: Never used Tobacco Advance Directives: Yes Advance Directives on File: Yes Advance Directives Date on File: 01/28/24 service: No Physical Exam Vital Signs: Vital Signs: Last Vital Signs Temp 98 F 03/07/25 06:11 Pulse 86 03/07/25 06:11 Resp 18 03/07/25 06:11 BP 180/82 H 03/07/25 06:11 Pulse Ox 97 03/07/25 06:11 O2 Del Method Room Air 03/07/25 06:11 BMI result Body Mass Index 30.0 Vital signs revealed an elevated blood pressure 180/82 otherwise unremarkable Exam: General: Awake, extremely anxious Head: Normocephalic, atraumatic EENT: PERRL, Lids normal, sclera normal, conjunctiva normal, nose normal , ears: Left tympanic membrane visible, no erythema, no tenderness palpation of the pinna or external canal, right tympanic membrane obscured by cerumen, no ear tenderness, throat without erythema or exudates Neck: Supple, no adenopathy Lung: breath sounds symmetric, no wheezing, rales or rhonchi Chest: symmetric movement, nontender Heart: regular rate and rhythm, normal S1, S2 no murmurs or rubs Abdomen: soft, non-tender, nondistended, normal bowel sounds Back: no vertebral tenderness, no CVAT Extremities: no deformities, moves all extremities symmetrically Neuro: Awake, alert, oriented, normal speech, cranial nerves intact, moves all extremities symmetrically Psych: Pleasant, cooperative Medical Decision Making Medical Decision Making MDM Narrative: 79-year-old female who presents emergency department for evaluation of anxiety, elevated blood pressure, headache and left ear pain. Patient was seen frequently here in the emergency department for anxiety. The patient states that she was in [place] 2 days prior and left her medications in [place]. She states she did not take any of her medications yesterday. Patient states that her blood pressure was high, she had a diffuse headache and her anxiety was elevated since she did not take her antihypertensive for antianxiety medication.She states she has a diffuse, pounding headache and 10 this in her left ear. She states that she was had similar headaches in the past and she was had tinnitus for many years. She was also complaining of extreme anxiety. Vital signs revealed an elevated blood pressure. Physical examination was consistent with her anxiety. Left your exam was unremarkable. Differential diagnosis: ?Includes but is not limited to Anxiety, otitis media, noncompliance with the medications, migraine headache, nonspecific headache Course: 07:25 The patient was well-known to the emergency department in his seen here frequently. Patient reports that she did not take her medications yesterday since she left her medications in [place] and will not get these medications back until tomorrow. Therefore the patient was given clonazepam 0.5 mg orally, hydroxyzine 25 mg orally, metoprolol ER 50 mg orally and valsartan 160 mg orally. The patient was discharged home. I told her that she should try to get her medications back sooner if possible. She was given printed and verbal instructions and discharged home Admission/Observation Consideration of admission/observation: Escalation of care including admission/observation considered (No) External Record Review External record reviewed: Inpatient record Chronic Conditions Patient?s care impacted by: Diabetes and Hypertension Discharge Plan Discharge Clinical Impression: Panic attack, Elevated blood pressure reading, Hypertension Patient Disposition: Home, Self-Care Additional Instructions: You were given Tylenol 970 mg orally, clonazepam 0.5 mg orally, hydroxyzine 25 mg orally, metoprolol ER 50 mg orally and valsartan 160 mg orally. When you get your medications back from [place], take them as directed. Follow-up with your doctor in 2 days. Please return to the emergency department if your symptoms get worse or if you develop any symptoms that are concerning to you. Prescriptions: No Action metoprolol succinate 50 mg tablet extended release 24 hr 50 mg PO DAILY Qty: 90 2RF valsartan 160 mg tablet 160 mg PO DAILY Qty: 90 1RF mirtazapine 45 mg Tablet 45 mg PO BEDTIME omeprazole 20 mg Tablet,Delayed Release (Dr/Ec) 20 mg PO DAILY@0630 fluticasone propionate [Flonase Allergy Relief] 50 mcg/actuation spray,suspension 2 spray intranasal DAILY Qty: 16 0RF Rx Instructions: administer into each nostril hydroxyzine HCl 25 mg tablet 25 mg PO TID PRN (Reason: anxiety) Qty: 6 0RF hydroxyzine HCl 25 mg tablet 25 mg PO TID PRN (Reason: anxiety) Qty: 20 0RF miconazole nitrate 2 % cream 1 appl topical BID Qty: 28 0RF azithromycin [Zithromax] 250 mg tablet 250 mg PO DAILY 4 Days Qty: 4 0RF Rx Instructions: start on day 2 of therapy trazodone 50 mg tablet 50 mg PO BEDTIME ferrous sulfate [FeroSul] 325 mg (65 mg iron) tablet 325 mg PO DAILY diphenhydramine HCl [Lou-Dryl] 25 mg tablet 25 mg PO BEDTIME PRN (Reason: itch) bisacodyl 5 mg tablet,delayed release (DR/EC) 5 mg PO DAILY PRN (Reason: constipation) rosuvastatin 20 mg tablet 20 mg PO BEDTIME aspirin 81 mg tablet,delayed release (DR/EC) 81 mg PO QAM multivitamin Tablet 1 tab PO QAM melatonin 10 mg tablet extended release 10 mg PO BEDTIME PRN (Reason: Insomnia) cholecalciferol (vitamin D3) 25 mcg (1,000 unit) tablet 25 mcg PO DAILY ondansetron 4 mg tablet,disintegrating 4 mg PO Q6H PRN (Reason: nausea and vomiting) Qty: 10 0RF acetaminophen 500 mg tablet 500 mg PO Q8H PRN (Reason: pain) zolpidem 5 mg tablet 5 mg PO BEDTIME PRN (Reason: Insomnia) ipratropium bromide 21 mcg (0.03 %) spray,non-aerosol 2 spray intranasal BID clonazepam 0.5 mg Tablet 0.5 mg PO TID Qty: 180 0RF gabapentin 100 mg Capsule 100 mg PO TID Qty: 180 0RF nitrofurantoin monohyd/m-cryst [Macrobid] 100 mg capsule 100 mg PO Q12H 3 Days Qty: 6 0RF Rx Instructions: must administer with a meal/food miconazole nitrate [Monistat 7] 2 % cream 1 appful vaginal BEDTIME 7 Days Qty: 45 0RF ofloxacin 0.3 % drops 10 drp otic (ears) DAILY 7 Days Qty: 5 0RF docusate sodium [Col-Rite] 100 mg capsule 200 mg PO BID Qty: 30 0RF polyethylene glycol 3350 [ClearLax] 17 gram/dose powder 17 g PO Q8H Qty: 238 0RF Advanced Healing (Petrolatum) 41 % ointment 1 appl topical BID PRN (Reason: irritated skin) Qty: 50 0RF docusate sodium [Colace] 100 mg capsule 200 mg PO BID Qty: 20 0RF polyethylene glycol 3350 [Miralax] 17 gram/dose powder 17 g PO BID Qty: 119 0RF simethicone 180 mg capsule 180 mg PO BID PRN (Reason: abdominal distention) Qty: 14 0RF amlodipine 10 mg tablet 10 mg PO DAILY meclizine 25 mg tablet 25 mg PO DAILY PRN Print Language: Tajik
--- NOTE | 2025-03-07 08:05 | PC.NURSE ---
Pt comes with complaints of anxiety and high BP this morning. Pt reports she was at her daughters in [place] this weekend and she forgot her medications there and will not be able to get them again until tomorrow. MD ordered all morning medications, DC in place. Awaiting pharm to bring up one of the medications and will give and DC, interpt at bedside to go over plan of care at this time. Pt is a/ox4, and in agreement with the DC plan. Pt already has a ride in route
[2025-03-07 08:12] VITALS: BP 155/87
[2025-03-07] MEDS: Valsartan 160 MG TABLET PO (08:12)
[2025-03-07] MEDS: Acetaminophen 325 MG TABLET 975 MG PO (08:12)
[2025-03-07 08:13] VITALS: BP 155/87; PULSE 96
[2025-03-07] MEDS: clonazePAM 0.5 MG TABLET PO (08:13)
[2025-03-07] MEDS: hydrOXYzine HCL 25 MG TABLET PO (08:13)
[2025-03-07] MEDS: Metoprolol Succinate ER 50 MG TAB.ER.24H PO (08:13)
[2025-03-07 08:18] VITALS: BP 155/87; PULSE 96; RESP 20; TEMP 37; O2SAT 98
== END 2025-03-07 08:18 | disposition home or self-care (01) ==
PROVIDERS: Emergency Provider Emergency Medicine Emergency Medical Services
DX: F41.0 Panic disorder [episodic paroxysmal anxiety] (principal); I10 Essential (primary) hypertension; F41.9 Anxiety disorder, unspecified; R51.9 Headache, unspecified; H92.02 Otalgia, left ear; Z79.899 Other long term (current) drug therapy

== ENCOUNTER 2025-03-07 20:34 | Emergency (ER) | payer OTHER, SELFPAY ==
--- NOTE | 2025-03-07 20:41 | ED_ITS ---
HPI - Psych General Chief Complaint: Anxiety Stated Complaint: anxiety, hypertension, ran of out her meds Time Seen by Provider: 03/07/25 20:40 Source: patient and EMS Mode of arrival: EMS Limitations: no limitations History of Present Illness ED Provider: Dr. Marta Briscoe HPI Narrative: Patient comes to the emergency room complaining of panic attack. Patient states that she has a refills of medications for anxiety due tomorrow. Patient requesting 1 dose to help her with her panic attack. Patient denies chest pain or shortness of breath. Patient denies SI or HI Related Data Home Medications ?Medication ?Instructions ?Recorded ?Confirmed mirtazapine 45 mg tablet 45 mg PO BEDTIME 08/09/20 09/29/24 omeprazole 20 mg tablet,delayed 20 mg PO DAILY@0630 08/09/20 09/29/24 release aspirin 81 mg tablet,delayed 81 mg PO QAM 01/28/24 09/29/24 release bisacodyl 5 mg tablet,delayed 5 mg PO DAILY PRN constipation 01/28/24 09/29/24 release diphenhydramine HCl 25 mg tablet 25 mg PO BEDTIME PRN itch 01/28/24 09/29/24 (Lou-Dryl) ferrous sulfate 325 mg (65 mg 325 mg PO DAILY 01/28/24 09/29/24 iron) tablet (FeroSul) melatonin 10 mg tablet,extended 10 mg PO BEDTIME PRN Insomnia 01/28/24 09/29/24 release multivitamin 1 tab PO QAM 01/28/24 09/29/24 rosuvastatin 20 mg tablet 20 mg PO BEDTIME 01/28/24 09/29/24 trazodone 50 mg tablet 50 mg PO BEDTIME 01/28/24 09/29/24 amlodipine 10 mg tablet 10 mg PO DAILY 02/09/24 09/29/24 acetaminophen 500 mg tablet 500 mg PO Q8H PRN pain 08/09/24 09/29/24 ipratropium bromide 21 mcg (0.03 2 spray intranasal BID 08/09/24 09/29/24 %) nasal spray zolpidem 5 mg tablet 5 mg PO BEDTIME PRN Insomnia 08/09/24 09/29/24 cholecalciferol (vitamin D3) 25 25 mcg PO DAILY 08/20/24 09/29/24 mcg (1,000 unit) tablet meclizine 25 mg tablet 25 mg PO DAILY PRN 09/29/24 09/29/24 Previous Rx's ?Medication ?Instructions ?Recorded metoprolol succinate 50 mg 50 mg PO DAILY #90 tabs 09/28/20 tablet,extended release 24 hr fluticasone propionate 50 2 spray intranasal DAILY #16 grams 09/16/23 mcg/actuation nasal spray,suspension (Flonase Allergy Relief) ondansetron 4 mg disintegrating 4 mg PO Q6H PRN nausea and 04/28/24 tablet vomiting #10 tabs hydroxyzine HCl 25 mg tablet 25 mg PO TID PRN anxiety #6 tabs 08/07/24 clonazepam 0.5 mg tablet 0.5 mg PO TID #180 tabs 08/10/24 gabapentin 100 mg capsule 100 mg PO TID #180 caps 08/10/24 hydroxyzine HCl 25 mg tablet 25 mg PO TID PRN anxiety #20 tabs 09/09/24 miconazole nitrate 2 % vaginal 1 appful vaginal BEDTIME 7 days 10/09/24 cream (Monistat 7) #45 grams nitrofurantoin 100 mg PO Q12H 3 days #6 caps 10/09/24 monohydrate/macrocrystals 100 mg capsule (Macrobid) miconazole nitrate 2 % topical 1 appl topical BID #28 grams 01/01/25 cream valsartan 160 mg tablet 160 mg PO DAILY #90 tabs 01/20/25 ofloxacin 0.3 % ear drops 10 drp otic (ears) DAILY 7 days #5 02/01/25 mL docusate sodium 100 mg capsule 200 mg (2 x 100 mg) PO BID #30 caps 02/07/25 (Col-Rite) polyethylene glycol 3350 17 17 g PO Q8H #238 grams 02/07/25 gram/dose oral powder (ClearLax) white petrolatum 41 % topical 1 appl topical BID PRN irritated 02/07/25 ointment (Advanced Healing skin #50 grams (Petrolatum)) azithromycin 250 mg tablet 250 mg PO DAILY 4 days #4 tabs 02/14/25 (Zithromax) docusate sodium 100 mg capsule 200 mg (2 x 100 mg) PO BID #20 caps 02/24/25 (Colace) polyethylene glycol 3350 17 17 g PO BID #119 grams 02/24/25 gram/dose oral powder (Miralax) simethicone 180 mg capsule 180 mg PO BID PRN abdominal 03/03/25 distention #14 caps Allergies Allergy/AdvReac Type Severity Reaction Status Date / Time penicillin G [Penicillin G] Allergy Severe ITCHY/RASH Verified 03/07/25 20:56 Sulfa (Sulfonamide Allergy Severe ITCHY,RASH, Verified 03/07/25 20:56 Antibiotics) rash [Sulfa (Sulfonamides)] trimethoprim [From Bactrim] Allergy Severe HIVES Verified 03/07/25 20:56 Penicillins Allergy Intermediate Hives Verified 03/07/25 20:56 sulfamethoxazole Allergy Mild Hives Verified 03/07/25 20:56 [From Bactrim] Review of Systems Review of Systems: Constitutional : No Weight loss, No Fever, No Chills, No Night Sweats, No Fatigue, No Malaise ENT/Mouth : No Hearing loss, No Ear Pain, No Nasal Congestion, No Sinus Pain, No Hoarseness, No sore throat, No Rhinorrhea, No Swallowing Difficulty Eyes: No Eye Pain, No Swelling, No Redness, No Foreign Body, No Discharge, No Vision Changes Cardiovascular : No Chest Pain, No SOB, No Dyspnea on Exertion, No Orthopnea, No Edema, No Palpitations Respiratory : No Cough, No Sputum, No Wheezing, No Smoke Exposure, No Dyspnea Gastrointestinal : No Nausea, No Vomiting, No Diarrhea, No Constipation, No abdominal Pain, No Hematochezia, No Melena Genitourinary : no irregular bleeding, No Dysuria, No Urinary Frequency, No Hematuria, No Urinary Incontinence, No Urgency, No Flank Pain, No Urinary Flow Changes, No Hesitancy Musculoskeletal : No joint pain, No Myalgias, No Joint Swelling Skin : No Skin Lesions, No rash Neuro : No Weakness, No Numbness, No Paresthesias, No Loss of Consciousness, No Dizziness, No Headache Psych : complaining of a panic attack, denies SI or HI Heme/Lymph: No Bruising, No Bleeding,No Lymphadenopathy Endocrine : No Polyuria, No Polydipsia, No Temperature Intolerance PMFSH Past Medical History 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) Unable to assess alcohol history related to: Unknown Alcohol intake: never Patient Tobacco Use Status: Never used Tobacco Smoked in Last 30 Days: No Use of substances other than those prescribed or required for medical reasons: No Advance Directives: Yes Advance Directives on File: Yes Advance Directives Date on File: 01/28/24 Do you have a plan to hurt others: No Plan service: No Physical Exam Vital Signs: Vital Signs: Last Vital Signs Temp 98.7 F 03/07/25 21:43 Pulse 77 03/07/25 21:43 Resp 22 H 03/07/25 21:43 BP 173/80 H 03/07/25 21:43 Pulse Ox 95 03/07/25 21:43 O2 Del Method Room Air 03/07/25 21:43 BMI result Body Mass Index 28.3 Const: Other: Appearance: Alert. Oriented X3. No acute distress. Eyes: Pupils equal, round and reactive to light. ENT: Pharynx normal. Neck: Normal inspection. Neck supple. No lymph nodes noted. No crepitus CVS: Normal heart rate and rhythm. Pulses normal. Normal S1 and S2 Respiratory: No respiratory distress. Breath sounds normal. No Wheezing. No rales Abdomen: Soft and nontender. No rigidity. No distention. Skin: Skin warm and dry. Normal skin color. Normal skin turgor. Extremities: No lower extremity edema. No Lacerations. No Rash Neuro: Oriented X 3. No motor deficit. No sensory deficit. Moving all extremities. No slurred speech. CN 2 through 12 grossly intact Psych: very anxious Medications Administered Discontinued Medications Generic Name Dose Route Start Last Admin Trade Name Freq PRN Reason Stop Dose Admin Lorazepam 0.5 mg 03/07/25 20:41 03/07/25 21:06 Lorazepam 0.5 Mg Tablet PO 03/07/25 20:42 0.5 mg ONCE ONE Administration Medical Decision Making Medical Decision Making MDM Narrative: patient is having a panic attack, denies chest pain or shortness of breath. Patient was given a dose of 0.5 mg of Ativan. Patient states it feels better patient will get all her refills tomorrow as scheduled also, patient states that she ran out of trazodone which with a refill tomorrow. Patient usually takes 50 mg. Patient requesting a dose. patient was given 25 mg. Patient also just received a dose of 0.5 mg of Ativan. after the medication, patient is completely awake and alert, stable to go home Discharge Plan Discharge Clinical Impression: Generalized anxiety disorder with panic attacks, Insomnia Patient Disposition: Home, Self-Care Instructions: Anxiety (ED) Additional Instructions: Please follow-up with your primary care physician tomorrow. If you have any worsening or new symptoms, please return to the emergency room or call 911 Prescriptions: No Action metoprolol succinate 50 mg tablet extended release 24 hr 50 mg PO DAILY Qty: 90 2RF valsartan 160 mg tablet 160 mg PO DAILY Qty: 90 1RF mirtazapine 45 mg Tablet 45 mg PO BEDTIME omeprazole 20 mg Tablet,Delayed Release (Dr/Ec) 20 mg PO DAILY@0630 fluticasone propionate [Flonase Allergy Relief] 50 mcg/actuation spray,suspension 2 spray intranasal DAILY Qty: 16 0RF Rx Instructions: administer into each nostril hydroxyzine HCl 25 mg tablet 25 mg PO TID PRN (Reason: anxiety) Qty: 6 0RF hydroxyzine HCl 25 mg tablet 25 mg PO TID PRN (Reason: anxiety) Qty: 20 0RF miconazole nitrate 2 % cream 1 appl topical BID Qty: 28 0RF azithromycin [Zithromax] 250 mg tablet 250 mg PO DAILY 4 Days Qty: 4 0RF Rx Instructions: start on day 2 of therapy trazodone 50 mg tablet 50 mg PO BEDTIME ferrous sulfate [FeroSul] 325 mg (65 mg iron) tablet 325 mg PO DAILY diphenhydramine HCl [Lou-Dryl] 25 mg tablet 25 mg PO BEDTIME PRN (Reason: itch) bisacodyl 5 mg tablet,delayed release (DR/EC) 5 mg PO DAILY PRN (Reason: constipation) rosuvastatin 20 mg tablet 20 mg PO BEDTIME aspirin 81 mg tablet,delayed release (DR/EC) 81 mg PO QAM multivitamin Tablet 1 tab PO QAM melatonin 10 mg tablet extended release 10 mg PO BEDTIME PRN (Reason: Insomnia) cholecalciferol (vitamin D3) 25 mcg (1,000 unit) tablet 25 mcg PO DAILY ondansetron 4 mg tablet,disintegrating 4 mg PO Q6H PRN (Reason: nausea and vomiting) Qty: 10 0RF acetaminophen 500 mg tablet 500 mg PO Q8H PRN (Reason: pain) zolpidem 5 mg tablet 5 mg PO BEDTIME PRN (Reason: Insomnia) ipratropium bromide 21 mcg (0.03 %) spray,non-aerosol 2 spray intranasal BID clonazepam 0.5 mg Tablet 0.5 mg PO TID Qty: 180 0RF gabapentin 100 mg Capsule 100 mg PO TID Qty: 180 0RF nitrofurantoin monohyd/m-cryst [Macrobid] 100 mg capsule 100 mg PO Q12H 3 Days Qty: 6 0RF Rx Instructions: must administer with a meal/food miconazole nitrate [Monistat 7] 2 % cream 1 appful vaginal BEDTIME 7 Days Qty: 45 0RF ofloxacin 0.3 % drops 10 drp otic (ears) DAILY 7 Days Qty: 5 0RF docusate sodium [Col-Rite] 100 mg capsule 200 mg PO BID Qty: 30 0RF polyethylene glycol 3350 [ClearLax] 17 gram/dose powder 17 g PO Q8H Qty: 238 0RF Advanced Healing (Petrolatum) 41 % ointment 1 appl topical BID PRN (Reason: irritated skin) Qty: 50 0RF docusate sodium [Colace] 100 mg capsule 200 mg PO BID Qty: 20 0RF polyethylene glycol 3350 [Miralax] 17 gram/dose powder 17 g PO BID Qty: 119 0RF simethicone 180 mg capsule 180 mg PO BID PRN (Reason: abdominal distention) Qty: 14 0RF amlodipine 10 mg tablet 10 mg PO DAILY meclizine 25 mg tablet 25 mg PO DAILY PRN Print Language: Lao
[2025-03-07 20:54] VITALS: BP 165/90; BP 173/80; PULSE 77; PULSE 81; RESP 22; TEMP 37.1; O2SAT 95; O2SAT 99; BMI 28.3
[2025-03-07] MEDS: LORazepam 0.5 MG TABLET PO (21:06)
[2025-03-07 21:43] VITALS: BP 173/80; PULSE 77; RESP 22; TEMP 37.1; O2SAT 95
--- NOTE | 2025-03-07 21:44 | PC.NURSE ---
Pt BIBA from home and complains of elevated blood pressure. Pt c/o headache 9/10 pain. Pt medicated per physician order. Pt offered po Tylenol and pt refused stating she took tylenol prior to coming to ED. Pt states after medication that headache pain now /10.
[2025-03-08] MEDS: traZODone HCL 25 MG HALFTAB PO (01:19)
[2025-03-08 01:23] VITALS: BP 140/83; PULSE 72; RESP 14; TEMP 36.7; O2SAT 97
== END 2025-03-08 01:24 | disposition home or self-care (01) ==
PROVIDERS: Emergency Provider Emergency Medicine
DX: F41.0 Panic disorder [episodic paroxysmal anxiety] (principal); G47.00 Insomnia, unspecified; F41.9 Anxiety disorder, unspecified
CPT/HCPCS: 99283; 99284

== ENCOUNTER 2025-03-16 13:24 | Outpatient (AMB) | payer OTHER, SELFPAY ==
[2025-03-16 13:26] VITALS: BP 130/64; PULSE 78; O2SAT 95
--- NOTE | 2025-03-16 13:26 | HO.NEPHOV ---
Vital Signs 03/16/25 13:26 Height 5 ft 8 in BP 130/64 Blood Pressure Location Lt brachial Position Sitting Pulse 78 Pulse Source Pulse Oximeter Pulse Oximetry (%) 95 Oxygen Delivery Method Room Air Intake Visit Reasons: Follow up/ Conf Systems Testing Laboratory Technician Required: Yes Systems Testing Laboratory Technician Name: diaz [id number] Accompanied by: Self / Same As Patient Allergies penicillin G [Penicillin G] Allergy (Severe, Verified 03/16/25 13:29) ITCHY/RASH Sulfa (Sulfonamide Antibiotics) [Sulfa (Sulfonamides)] Allergy (Severe, Verified 03/16/25 13:29) ITCHY,RASH, rash trimethoprim [From Bactrim] Allergy (Severe, Verified 03/16/25 13:29) HIVES Penicillins Allergy (Intermediate, Verified 03/16/25 13:29) Hives sulfamethoxazole [From Bactrim] Allergy (Mild, Verified 03/16/25 13:29) Hives Medication List - Last Reconciled 03/16/25 by Santos Erazo MD acetaminophen 500 mg PO Q8H PRN amlodipine 10 mg PO DAILY aspirin 81 mg PO QAM azithromycin (Zithromax) 250 mg PO DAILY 4 days bisacodyl 5 mg PO DAILY PRN cholecalciferol (vitamin D3) 25 mcg PO DAILY clonazepam 0.5 mg PO TID diphenhydramine HCl (Lou-Dryl) 25 mg PO BEDTIME PRN docusate sodium (Col-Rite) 200 mg (2 x 100 mg) PO BID docusate sodium (Colace) 200 mg (2 x 100 mg) PO BID ferrous sulfate (FeroSul) 325 mg PO DAILY fluticasone propionate 50 mcg/actuation (Flonase Allergy Relief) 2 sprays intranasal DAILY gabapentin 100 mg PO TID hydroxyzine HCl 25 mg PO TID PRN hydroxyzine HCl 25 mg PO TID PRN ipratropium bromide 2 sprays intranasal BID meclizine 25 mg PO DAILY PRN melatonin ER 10 mg PO BEDTIME PRN metoprolol succinate ER 50 mg PO DAILY miconazole nitrate 2% (Monistat 7) 1 appful vaginal BEDTIME 7 days miconazole nitrate 2% 1 appl topical BID mirtazapine 45 mg PO BEDTIME multivitamin 1 tab PO QAM nitrofurantoin monohyd/m-cryst 100 mg (Macrobid) 100 mg PO Q12H 3 days ofloxacin 0.3% 10 drps otic (ears) DAILY 7 days omeprazole 20 mg PO DAILY@0630 ondansetron 4 mg PO Q6H PRN polyethylene glycol 3350 (ClearLax) 17 grams PO Q8H polyethylene glycol 3350 (Miralax) 17 grams PO BID rosuvastatin 20 mg PO BEDTIME sertraline 100 mg PO DAILY simethicone 180 mg PO BID PRN trazodone 50 mg PO BEDTIME valsartan 160 mg PO DAILY white petrolatum 41% (Advanced Healing (Petrolatum)) 1 appl topical BID PRN zolpidem 5 mg PO BEDTIME PRN HPI Comments Details: 79-year-old female with medical history of generalized anxiety disorder, major cognitive disorder, HLD, GERD, HTN who presented to the ER for anxiety and panic attacks, was found to have a sodium of 126 and an episode of vomiting, and was seen during recent hospitalization. Serum sodium improved from 12/05 up to 131 prior to discharge. She is here for further follow-up. She was on lisinopril 20 mg a day. Lisinopril was switched to valsartan and she is tolerating well CT head unremarkable chest x-ray unremarkable No new issues today [facility] Medical History Bleeding hemorrhoids Essential hypertension PVC (premature ventricular contraction) PAC (premature atrial contraction) SVT (supraventricular tachycardia) Chronic constipation High blood pressure Vertigo Dementia Arthritis Anxiety Surgical History No pertinent past surgical history Social History Household Members: Other Household Members Other:: son Housing: Apartment Do you presently have visiting nurse or 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 (tucking machine operator) Unable to assess alcohol history related to: Unknown Alcohol intake: never Patient Tobacco Use Status: Never used Tobacco Advance Directives Date on File: 01/28/24 service: No Physical Exam Vital Signs: Last Vital Signs Pulse 78 03/16/25 13:26 BP 130/64 03/16/25 13:26 Pulse Ox 95 03/16/25 13:26 Oxygen Delivery Method Room Air 03/16/25 13:26 Const General: comfortable; No acute distress Orientation/consciousness: patient oriented x3 Eyes General: appearance normal, both eyes and all related structures Visual West: normal visual west by confrontation Neck Neck: Yes supple and Yes no JVD Resp Effort & Inspection: normal respiratory effort and respiratory effort not decreased Cardio Palpation: no palpable S3 and no palpable S4 Heart sounds: no rubs GI Inspection: Yes normal to inspection Palpation (GI): Soft to palpation Percussion: Yes normal to percussion Auscultation: normal bowel sounds General: Yes no CVA tenderness Back/Spine/Pelvis Back: no CVA tenderness Skin General skin exam: no petechiae and no purpura Neuro General: patient oriented x3 and no focal motor deficits Extrem General: No clubbing and No edema Results Reviewed Results Reviewed: Na 136 Nephrology Results: No Data to Display Assessment & Plan Assessment & Plan (1) Acute hyponatremia: Code(s): E87.1 - Hypo-osmolality and hyponatremia Category: Medical (2) CKD stage 3a, GFR 45-59 ml/min: Code(s): N18.31 - Chronic kidney disease, stage 3a Category: Medical Plan Hyponatremia due to non osmotic ADH release. Urine osmolality is elevated with high urine sodium suggestive of inappropriate ADH secretion. Goal is to maintain serum sodium more than 133 millimoles Restrict oral free water intake to 1.2 L per 24 hours. Maintain blood pressure less than 130/80 Mild CKD Age related decline in eGFR Shall follow PRN All questions were answered . Orders: Orders Basic Metabolic Panel 1 Year N18.31 - Chronic kidney disease, stage 3a Coding Level of Care Code Est Pt Level 4 (74954) Diagnoses Acute hyponatremia E87.1 CKD stage 3a, GFR 45-59 ml/min N18.31
--- OUTSIDE RECORDS SUMMARY | 2025-03-16 14:39 | XMS_ITS | Encounter Summary ---
Author Organization [employer] Address [address] [facility] [address] [place] [address] Care Team Providers Care Lombardi Developer Name Role Phone NameNitin MD Primary Care Provider [phone] Encounter Details Date Type Department Care Team (Late st Contact Info) Description 11/06/2022 Orders Only [facility] MED & PEDS [address] [place], [place] [phone] Lisha Kelly LPN Social History Tobacco Use [...] 10:00 AM EDT Office Visit [facility] MEDICINE [address] [place] [address] Nitin Echevarria MD [address] [place] [address] documented as of this encounter Visit Diagnoses Not on filedocumented in this encounter Care Teams Lombardi Developer Relationship Specialty Start Date End Date Nitin Echevarria MD [address] [place] [address] PCP - General Family Medicine 08/26/17 [facility] 09/01/24 documented as of this encounter
--- OUTSIDE RECORDS SUMMARY | 2025-03-16 14:39 | XMS_ITS | Encounter Summary ---
Author Organization [employer] Address [address] [facility] [address] [place] [address] Care Team Providers Care Roving Frame Tender Name Role Phone Name, Nitin PIKE Primary Care Provider [phone] Reason for Visit * Reason Comments Med Refill Encounter Details Date Type Department Care Team (Late st Contact Info) Description 08/16/2024 Refill [facility] MED & PEDS [address] [place], [place] [phone] Name, MD Nitin [address] [place] [address] Heartburn Social History Tobacco Use Types Packs/Day [...] Description 04/29/2025 10:00 AM EDT Office Visit [facility] MEDICINE [address] [place] [phone] NameNitin MD [address] [place] [address] documented as of this encounter Visit Diagnoses Diagnosis Heartburn documented in this encounter Additional Health Concerns Assessment Noted Time PHQ-9 Depression Total Score: 6 02/13/20 9:14 AM EDT documented as of this encounter Care Teams Roving Frame Tender Relationship Specialty Start Date End Date NameNitin MD [address] [place] [address] PCP - General Family Medicine 08/26/17 [facility] 09/01/24 documented as of this encounter
--- OUTSIDE RECORDS SUMMARY | 2025-03-16 14:39 | XMS_ITS | Clinical Summary ---
Author Organization [facility] Address [address] [address] Care Team Providers Care Medical Researcher Name Role Phone Name, Nitin PIKE Primary Care Provider [phone] Allergies Active Allergy Reactions Criticality Noted Date [...] patient's age to complete this topic [place] [address] MCR ([id number]) [place]IPS [phone] [facility] MCR ([id number]) Care Teams Medical Researcher Relationship Specialty Start Date End Date Name, MD Nitin [address] [place] [address] PCP - General Internal Medicine 10/15/22
--- OUTSIDE RECORDS SUMMARY | 2025-03-16 14:39 | XMS_ITS | Clinical Summary ---
Author Organization [employer] Address [address] [place] [address] [address] [place] [address] Care Team Providers Care Construction Analyst Name Role Phone Name, Nitin PIKE Primary Care Provider [phone] Allergies Active Allergy Reactions Criticality Noted Date [...] BY MOUTH EVERY DAY 90 tablet 1 04/24/2 023 Active ofloxacin (Floxin) 0.3 % otic [...] MOUTH EVERY 8 HOURS NEEDED FOR PAIN (OMANI LABEL) 90 tablet 024 Active ammonium lactate (Lac-Hydrin) 12 % lotion APPLY TOPICALLY TWICE DAILY IN THE MORNING AND AT BEDTIME FOR DRY SKIN Active Bisacodyl EC 5 MG EC tablet TAKE 1 TABLET BY MOUTH EVERY DAY NEEDED FOR CONSTIPATION. DO NOT BREAK, CRUSH, DISSOLVE OR CHEW 30 tablet 3 12/20/2 024 Active polyethylene glycol, PEG, 3350 (GaviLAX) 17 GM/SCOOP powder MIX 17G (1 CAPFUL) IN 8 OUNCES OF WATER AND TAKE BY MOUTH TWICE A DAY 238 g 11 Active sertraline (Zoloft) 100 MG tablet Take 100 mg by mouth in the morning. Active Multiple Vitamin (Multivitamin) tablet TAKE 1 TABLET BY MOUTH EVERY MORNING 90 tablet 3 Active rosuvastatin (Crestor) 20 MG tablet TAKE [...] eorder (will not trigger notification to Pharmacy)) cholecalciferol (Vitamin D-3) 25 MCG tabletIndicatio ns:Vitamin D deficiency TAKE 1 TABLET BY MOUTH TWICE DAILY IN THE MORNING AND IN THE EVENING 60 tablet 025 2024 Discontinued Active Problems Problem Noted Date Diagnosed Date [...] because it calms her down. I called [facility] pharmacy to attempt a med rec they instructed me that she is on med box and one week at a time prescriptions because she would break into her med boxes to take more Ambien or xanax. She is being seen by Iz[facility]. He is aware of her behavior [...] left I received a call from the [facility] pharmacy instructing me that she was [...] Encounters Date Type Department Care Team Description 03/16/2025 Refill [facility] MED & PEDS [address] [place] [address] NameNitin MD Vitamin D deficiency 03/15/2025 Telephone [facility] [address] [place] [address] Lyric Anderson MA returning call back 03/14/2025 Telephone [facility] [address] [place] [address] Nitin Echevarria MD Call Back Request 03/07/2025 Telephone [facility] [address] [place] [address] Nitin Echevarria MD 02/23/2025 Refill [facility] [address] [address] Nitin Echevarria MD Vitamin D deficiency 02/22/2025 8:40 AM EDT Office Visit [facility] [address] [place] [address] Zechariah Cheung MD Chronic rhinitis (Primary Dx); Tinnitus of both ears; Chronic left ear pain; Allergic rhinitis, unspecified seasonality, unspecified trigger 02/22/2025 Travel 02/14/2025 9:00 AM EDT Office Visit [facility] [address] [place] [address] Delfina Romero MD 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); Viral upper respiratory tract infection 02/14/2025 Travel 02/14/2025 Refill [facility] MED & PEDS [address] [place] [address] Nitin Echevarria MD Heartburn 02/14/2025 Orders Only GENERIC EXTERNAL DATA DEPARTMENT Provider, Generic External Data 02/11/2025 Refill [facility] MED & PEDS [address] [place] [address] Nitin Echevarria MD Generalized anxiety disorder with panic attacks 02/07/2025 Orders Only GENERIC EXTERNAL DATA DEPARTMENT Provider, Generic External Data 02/06/2025 Orders Only GENERIC EXTERNAL DATA DEPARTMENT Provider, Generic External Data 02/02/2025 Refill [facility] MED & PEDS [address] [place] [address] Nitin Echevarria MD Chronic constipation; Vertigo 02/01/2025 Refill [facility] [address] [place] [address] Nitin Echevarria MD Generalized anxiety disorder with panic attacks 01/31/2025 9:20 AM EDT Office Visit [facility] [address] [place] [address] Karely Patiño MD Impacted cerumen of left ear (Primary Dx) 01/24/2025 Refill [facility] [address] [place] [address] Nitin Echevarria MD Generalized anxiety disorder with panic attacks; Hypertension, unspecified type 01/10/2025 11:00 AM EST Office Visit [facility] [address] [place] [address] Nitin Echevarria MD Generalized anxiety disorder with panic attacks (Primary Dx); Cerumen debris on tympanic membrane of both ears 01/10/2025 Travel 01/09/2025 Refill [facility] [address] [place] [address] Nitin Echevarria MD Hypertension, unspecified type 01/05/2025 Telephone [facility] & PEDS [address] [place] [address] Nitin Echevarria MD chartprep 01/03/2025 Refill [facility] [address] [place] [address] [place] [address] Name, MD Nitin Vertigo; Vitamin D deficiency 12/26/2024 Refill [facility] [address] [place] [address] Name, MD Nitin Prediabetes 12/17/2024 Refill [facility] [address] [place] [address] Daphne Fofana MD Chronic constipation; Vitamin D [...] Frequency of Binge Drinking Not on file 080 03/2024 Score 0 06/14/2024 Depression Answer Date [...] Description 04/29/2025 10:00 AM EDT Office Visit [facility] [address] [place] [address] Name, MD Nitin [address] [place] [address] Health Maintenance Due Date Last Done Comments [...] NOW Rapid Molecular) (02/22/2025 8:58 AM EDT) [facility] Influenza B Negative Negative, Indeterminate [facility] Swab 02/22/2025 8:58 AM EDT us Zechariah Cheung MD POINT OF CARE TEST ENTER/EDIT OR DERABLES Final Result Performing Organization Address [facility] Co de Phone Number [facility] [address] [place] [phone] * Influenza A (ID NOW Rapid Molecular) (02/22/2025 8:58 AM EDT) [facility] Influenza A Negative Negative, Indeterminate [facility] Swab 02/22/2025 8:58 AM EDT us Zechariah Cheung MD POINT OF CARE TEST ENTER/EDIT OR DERABLES Final Result Performing Organization Address [facility] Co de Phone Number [facility] [address] [place] [phone] * POCT Rapid COVID Ag (02/22/2025 8:58 AM EDT) Rapid COVID Ag Negative [facility] Swab 02/22/2025 8:58 AM EDT us Zechariah Cheung MD POINT OF CARE TEST ENTER/EDIT OR DERABLES Final Result Performing Organization Address [facility] Co de Phone Number [facility] [address] [place] [address] [phone] * POCT rapid strep A manually resulted (02/22/2025 8:58 AM EDT) Rapid Strep A Screen Negative Negative, None Detected [facility] Swab 02/22/2025 8:58 AM EDT us Zechariah Cheung MD POINT OF CARE TEST ENTER/EDIT OR DERABLES Final Result Performing Organization Address [facility] de Phone Number [facility] [address] [place] [address] [phone] * XR Chest 1 View (02/14/2025 2:56 AM EDT) Anatomical Region Laterality Modality Chest Radiographic Lauren ging 02/14/2025 2:56 AM EDT Narrative 02/14/2025 2:58 AM EDT ? [facility] ?[address] ?[place] [address] ?XRay Report ? Signed ? Patient: Wing,Noreen ?MR#: [id number] ? : 1945 ?Acct:[id number] ? Age/Sex: 79 / F ?ADM Date: 02/14/ ? Loc: HO.ED ? Attending Dr: ? Ordering Physician: Generic ED Physician ?? Date of Service: 02/14/25 ?? Procedure(s): XR chest 1V ?? Accession Number(s): [id number] ? cc: [facility] ED Physician; [facility] ? CLINICAL HISTORY: sob ? 1 view [...] in OV> ? 02/14/25 0257 ? DD/ ? TD/TT: 02/14/25255 ? Top Closer: ? Procedure Note Ac, Image - 02/14/2025 [place] [address] XRay Report Signed Patient: Noreen WingMR#: [id number] : 3Acct:[id number] Age/Sex: 79 / FADM Date: 02/14/25 Loc: HO.ED Attending Dr: Ordering Physician: Generic ED Physician Date of Service: 02/14/25 Procedure(s): XR chest 1V Accession Number(s): [id number] cc: Generic ED Physician; [facility] CLINICAL HISTORY: sob 1 view chest x-ray [...] Hatch MD Signed By: <Electronically signed by Kneyon Hatch MD in OV> 02/14/25256 DD/ 5 TD/TT: 02/14/25255 Top Closer: [facility] External Provider IMG XR PROCEDURES Edited Result - Final * Strep A Nucleic Acid (02/14/2025 12:10 AM EDT) [employer]NOW SERIAL# [id number] [facility] Strep A Nucleic Acid Negative Negative [facility] Comment:All test results mus t be correlated with clinical findings.This test has not been evaluated for monitoring treatment ofinfection.Additional follow-up testing using the culture method isrequired if the result is negative and clinical symptomspersist, or in the event of an acute rheumatic feveroutbreak. 02/14/2025 12:1 0 AM EDT 02/14/2025 12:13 AM EDT [employer] External Data Provider LAB MICROBIOLOGY - GENERAL ORDERABLES Final Result [facility] [address] [place] [address] [phone] * SARS-CoV-2 RNA, Influenza A/B, and RSV RNA, Ql NAAT (02/14/2025 12:10 AM EDT) Influenza A PCR NEGATIVE Negative [facility] Influenza B PCR NEGATIVE Negative [facility] Resp Syncy Virus RNA Qual PCR NEGATIVE Negative [facility] SARS COV2 PCR NEGATIVE Negative [facility] Comment:All test results mus t be [...] use by authorized laboratories.Testing performed on the [employer] GeneXpert utilizingreal-time RT-PCR.All SARS CoV2 and positive influenza A/B results arereported to [facility]. 02/14/2025 12:1 0 AM EDT 02/14/2025 12:13 AM EDT us Generic External Data Provider LAB MICROBIOLOGY - GENERAL ORDERABLES Final Result [facility] [address] [place] [address] [phone] * XR KUB and Upright 2 Views (02/07/2025 12:53 AM EDT) Anatomical Region Laterality Modality Radiographic Lauren ging 02/07/2025 12:5 3 AM EDT Narrative 02/07/2025 12:55 AM EDT ? [facility] ?[address] ?[place] [address] ?XRay Report ? Signed ? Patient: Wing,Noreen ?MR#: [id number] ? : 1945 ?Acct:[id number] ? Age/Sex: 79 / F ?ADM Date: 02/06/25 ? Loc: HO.ED ? Attending Dr: ? Ordering Physician: Jeanne Shen ?? Date of Service: 02/07/25 ?? Procedure(s): XR KUB ?? Accession Number(s): [id number] ? cc: Jeanne Shen; [facility] ? CLINICAL HISTORY: pain ? 1 view [...] DD/ 0053 ? TD/TT: 02/07/25 0053 ? Top Closer: ? Procedure Note Dale Shen - 02/07/2025 [facility] [address] [place] [address] XRay Report Signed Patient: Noreen WingMR#: [id number] : 3Acct:[id number] Age/Sex: 79 / FADM Date: 02/06/25 Loc: HO.ED Attending Dr: Ordering Physician: Jeanne Shen Date of Service: 02/07/25 Procedure(s): XR KUB Accession Number(s): [id number] cc: Jeanne Shen; [facility] CLINICAL HISTORY: pain 1 view abdomen Comparison: [...] MD in OV> 02/07/2553 DD/ TD/TT: 02/07/2552 Top Closer: [facility] External Provider IMG XR PROCEDURES Edited Result - Final * Culture, Urine, Routine (02/07/2025 12:00 AM EDT) Urine Urine specimen obtained by clean catch procedure / Unknown 02/07/2025 02/07/2025 Comment:[facility] Narrative [facility] - 02/08/2025 8:36 AM EDT Urine Culture Report Result Urine Culture 50,000 to 100,000 cfu/ml Urine Culture Mixed bacterial jann characteristic of Urine Culture urogenital contamination. Specimen Source: Urine clean catch Generic External Data Provider LAB MICROBIOLOGY - GENERAL ORDERABLES Final Result [facility] [address] [place] [address] [phone] * (ABNORMAL) Urinalysis, Complete, with Reflex to Culture (02/06/2025 11:50 PM EDT) Color Urine Yellow [facility] Appearance Urine Hazy [facility] PH 6.0 5.0 - 9.0 [facility] Glucose Urine UA Negative Negative mg/dL [facility] Urine Blood Trace Negative [facility] Specific [place] - Urine 1.020 1.005 - 1.025 [facility] Urine Protein Negative Neg-Trace mg/dL [facility] Urine Ketones Negative Negative mg/dL [facility] Nitrite Urine Negative Negative [facility] Leukocyte Esterase Urine Moderate (2+)(A) Negative [facility] RBC Urine 0-2 0 - 2 /HPF [facility] Urine WBC 11-20(A) 0 - 5 /HPF [facility] Urine Squamous Epithelial Cell 6-10 0 - 2 /HPF [facility] Urine Bacteria 2+ None Seen [facility] Hyaline Casts, Urine 0-2 0 - 2 /LPF [facility] 02/06/2025 11:5 0 PM EDT 02/06/2025 11:56 PM EDT Narrative [facility] - 02/07/2025 12:13 AM EDT Urine, Clean Catch us Generic External Data Provider LAB URINE ORDERAB LES Final Result Performing Organization Address City/State/[facility] Co de Phone Number [facility] [address] [place] [phone] * POCT Glucose (01/10/2025 11:03 AM EST) Glucose Blood, POC 110 60 - 200 mg/dL QC Media Lot # [id number] Lot# Expiration Date Blood Capillary blood specimen / Unknown 01/10/2025 11:03 AM EST us Nitinevan Echevarria MD POINT OF CARE TEST ENTER/EDIT [...] ?? Jack RAYO et al. JITENDRA. 2013;310(19): 2222-2876 ?? (http://education.roundCorner.Equinext/faq/IUM934) Non-HDL Cholesterol 88 <130 mg/dL (calc) CONVERTED [...] Most Recently Relevant to Health Maintenance Insurance [id number] [employer] (O D-SNP) [facility] [employer] OPT[employer] (O D-SNP) Care Teams Construction Analyst Relationship Specialty Start Date End Date Name, MD Nitin [address] [place] [phone] PCP - General Family Medicine 08/26/17 [facility] 09/01/24
--- OUTSIDE RECORDS SUMMARY | 2025-03-16 14:39 | XMS_ITS | Encounter Summary ---
Author Organization [employer] Address [address] [facility] [address] [place] [address] Care Team Providers Care Air Antisubmarine Officer Name Role Phone Name, Nitin PIKE Primary Care Provider [phone] Encounter Details Date Type Department Care Team (Late st Contact Info) Description 05/26/2023 Orders Only [facility] MED[facility] [address] [place] [phone] Noreen Fox MD [address] [place] [phone] Social History Tobacco Use Types Packs/Day Years [...] Description 04/29/2025 10:00 AM EDT Office Visit [facility] [address] [place] [phone] NameNitin MD [address] [place] [address] documented as of this encounter Visit Diagnoses Not on filedocumented in this encounter Care Teams Air Antisubmarine Officer Relationship Specialty Start Date End Date Name, MD Nitin [address] [place] [address] PCP - General Family Medicine 08/26/17 [facility] 09/01/24 documented as of this encounter
--- OUTSIDE RECORDS SUMMARY | 2025-03-16 14:39 | XMS_ITS | Encounter Summary ---
Author Organization [employer] Address [address] [facility] [address] [place] [address] Care Team Providers Care Business Architect Name Role Phone Name, Nitni PIKE Primary Care Provider [phone] Reason for Visit * Reason Comments Med Refill Encounter Details Date Type Department Care Team ([facility] st Contact Info) Description 06/28/2024 Refill [facility] [address] [place], [place] [phone] Mel Anguiano FNP [address] [place] [address] Social History Tobacco Use Types Packs/Day Years [...] 10:00 AM EDT Office Visit [facility] [address] [place] [address] Name, MD Nitin [address] [place] [address] documented as of this encounter Visit Diagnoses Not on filedocumented in this encounter Additional Health Concerns Assessment Noted Time PHQ-9 Depression Total Score: 6 02/13/20 9:14 AM EDT documented as of this encounter Care Teams Business Architect Relationship Specialty Start Date End Date Name, MD Nitin [address] [place] [address] PCP - General Family Medicine 08/26/17 [facility] 09/01/24 documented as of this encounter
--- OUTSIDE RECORDS SUMMARY | 2025-03-16 14:39 | XMS_ITS | Encounter Summary ---
Author Organization [employer] Address [address] [facility] [address] [place] [address] Care Team Providers Care Personal Computer Network Engineer Name Role Phone Name, Nitin PIKE Primary Care Provider [phone] Reason for Visit * Reason Comments Med Refill Encounter Details Date Type Department Care Team ([facility] st Contact Info) Description 04/01/2024 Refill [facility] 230 [place], [place] [phone] Name, MD Nitin [address] [place], [place] [phone] Rash Social History Tobacco Use Types Packs/Day [...] 04/29/2025 10:00 AM EDT Office Visit [facility] [address] [place] [address] Name, MD Nitin [address] [place] [address] documented as of this encounter Visit Diagnoses Diagnosis Rash Rash and other nonspecific skin eruption documented in this encounter Additional Health Concerns Assessment Noted Time PHQ-9 Depression Total Score: 6 02/13/20 9:14 AM EDT documented as of this encounter Care Teams Personal Computer Network Engineer Relationship Specialty Start Date End Date NameNitin MD [address] [place] [address] PCP - General Family Medicine 08/26/17 [facility] 09/01/24 documented as of this encounter
--- OUTSIDE RECORDS SUMMARY | 2025-03-16 14:39 | XMS_ITS | Encounter Summary ---
Author Organization [employer] Address [address] [facility] [address] [place] [address] Care Team Providers Care Stone Layout Marker Name Role Phone Name, Nitin PIKE Primary Care Provider [phone] Reason for Visit * Reason Comments Med Refill Encounter Details Date Type Department Care Team (Late st Contact Info) Description 03/16/2025 Refill [facility] [address] [place], [place] [phone] Name, MD Nitin [address] [place] [address] Vitamin D deficiency Social History Tobacco Use [...] Description 04/29/2025 10:00 AM EDT Office Visit [facility] [address] [place] [address] NameNitin MD 230 [place] [address] documented as of this encounter Visit Diagnoses Diagnosis Vitamin D deficiency documented in this encounter Additional Health Concerns Assessment Noted Time PHQ-9 Depression Total Score: 6 02/13/20 9:14 AM EDT documented as of this encounter Care Teams Stone Layout Marker Relationship Specialty Start Date End Date Name, MD Nitin [address] [place] [address] PCP - General Family Medicine 08/26/17 [facility] 09/01/24 documented as of this encounter
--- OUTSIDE RECORDS SUMMARY | 2025-03-16 14:39 | XMS_ITS | Data Portability ---
Author Organization [employer] Address [address] [place] [id number] Care Team Providers Care Tobacco Grower Name Role Phone HIM [facility] Primary Care Provider [phone] Assessment No assessment recorded. Plan of Treatment [...] Last Updated DateTime 18 /min 74 /min 88416.9 28 g 98 % 98 % 100 [degF] 130 mm[Hg] 66 mm[Hg] Not Available [facility] [employer] 15:33:18 Social History None recorded. Functional Status None recorded. Mental Status None recorded. Family History Nothing Reported. Medical History No medical history recorded. Gynecological HistoryNo gynecological history recorded. 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 She called today because she insists on having the catheter removed. It was removed by the shipping track supervisor with the understand ing that if she can't void, she will need to go the the ER. The patient agreed with this plan. [id number] Rohit Benton MD Main - [address] [address] 02/06/2024 15:33:16 02/09/2024 18:20:42 Chronic retention of urine 780324494 R33.8 Has bunn catheter which was recently [...] Recorded Advance Directives Directive None Recorded Payers Insurance Date Sequence Insurance Name Policy Number Policy Pinzon Covered Member ID Pinzon Member ID Guarantor Name 02/09/2024 1 [facility] - DOS ON OR AFTER 2023 - DUAL ELIGIBLE - CARE HOME OPTIONS AND ONE CARE (MEDICARE REPLACEMENT/ADV ANTAGE - HMO) Noreen Wing [id number] Noreen Wing Notes Date Note Type Note Provider Name and Address Organization Details Recorded Time 01/31/2024 text/html [facility] Nurse Triage Notes (Joana Dominique): Reason For Request: Bunn catheter malfunction/painful Chief Complaints: UTI/Pyelonephritis, Equipment-Related Allergies: No Known Comments: Fijian speaking member who denies any PMH, denies [...] Nader KAYE Verified name//address Epifanio Mcintyre MD [address] [place] [address],[address], [place], [address], [employer] 01/31/2024 19:05:57 02/06/2024 text/html HPI: Member asked for HV tomorrow after 10 AM if possible. Treated at the [facility] ER today, for F/u leaking, stated is [...] son Jame Wing. Member is 78 y/o Fijian speaking female who resides [facility] with her son. Member has [...] sees her BH counselor weekly and Prescriber RESTAURANT FLOOR MANAGER [place] monthly if needed or every 2-3 months, .................... .................... .................... .................... .................... .................... .................... . [facility] Nurse Triage Notes (Zafar Irving): Comments: Reviewed HPI .................... .................... .................... .................... .................... .................... .................... . Land Checker Note From [place]: Pt sts doesn? [...] stable. Urine clear and light yellow. [facility] contacted and advised pt to rest and advised to make sure she goes to appt Friday. Pt son was used as turnaround planner. Pt education on signs indicating the ER. Land Checker Allergies: Clindamycin .................... .................... .................... .................... .................... .................... .................... . Disposition: Fulfilled Rohit Benton MD [address] [facility],[address], [place], [address], [employer] 02/06/2024 17:58:19 OBGyn Episode No OBEpisode recorded.
--- OUTSIDE RECORDS SUMMARY | 2025-03-16 14:39 | XMS_ITS | Clinical Summary ---
Author Organization [facility] Address [address] [place] [address] Phone Care Team Providers Care Presser Machine Name Role Phone Physician, No Pcp Primary [...] mmol/L LAB CHEMISTRY METHOD 09/22/2024 3:15 AM [facility] Potassium 4.6 3.5 - 5.5 mmol/L LAB CHEMISTRY METHOD 09/22/2024 3:15 AM [facility] Chloride 98 96 - 110 mmol/L LAB CHEMISTRY METHOD 09/22/2024 3:15 AM [facility] CO2 28 21 - 32 mmol/L LAB CHEMISTRY METHOD 09/22/2024 3:15 AM [facility] Anion Gap 6 3 - 11 LAB CHEMISTRY METHOD 09/22/2024 3:15 AM [facility] Glucose 119(H) 70 - 100 mg/dL LAB CHEMISTRY METHOD 09/22/2024 3:15 AM [facility] BUN 25 5 - 25 mg/dL LAB CHEMISTRY METHOD 09/22/2024 3:15 AM [facility] Creatinine 1.18(H) 0.50 - 1.10 mg/dL LAB CHEMISTRY METHOD 09/22/2024 3:15 AM [facility] eGFR 47(L) >=60 mL/min/1. 73m2 LAB CHEMISTRY METHOD 09/22/2024 3:15 AM [facility] Comment:Calculation based on the??Chronic Kidney Disease Epidemiology Collaboration (CKD-EPI) equation refit??without adjustment for race. BUN/Creatinine Ratio 21.2 LAB CHEMISTRY METHOD 09/22/2024 3:15 AM [facility] Calcium 9.3 8.5 - 10.5 mg/dL LAB CHEMISTRY METHOD 09/22/2024 3:15 AM [facility] AST (SGOT) 37 10 - 42 unit/L LAB CHEMISTRY METHOD 09/22/2024 3:15 AM [facility] ALT (SGPT) 25 10 - 60 unit/L LAB CHEMISTRY METHOD 09/22/2024 3:15 AM [facility] Alkaline Phosphatase 77 42 - 121 unit/L LAB CHEMISTRY METHOD 09/22/2024 3:15 AM [facility] Total Protein 8.0 6.0 - 8.0 g/dL LAB CHEMISTRY METHOD 09/22/2024 3:15 AM EST [facility] Albumin 4.2 3.2 - 5.0 g/dL LAB CHEMISTRY METHOD 09/22/2024 3:15 AM EST [facility] Total Bilirubin 0.4 0.0 - 1.4 mg/dL LAB CHEMISTRY METHOD 09/22/2024 3:15 AM EST [facility] Blood Venous blood specimen / Unknown Venipuncture / Unknown 09/22/2024 2:28 AM EST 09/22/2024 2:31 AM EST Paul RUIZ LAB BLOOD ORDERABLES Final Resul t [facility] [address] [place] [address], from Last 3 Months or Most Recently Relevant to Health Maintenance Insurance [facility] MEDIC[facility] Member Subscriber Plan / Payer (Ef fective 2021-Present) Name:WingNoreen garcia Relation to Subscriber:Self Name:WingNoreen garcia Payer ID:[id number] Group ID:[id number] Type:Not on file Address: [facility] [address] [address] Care Teams Presser Machine Relationship Specialty Start Date End Date Physician, No Pcp PCP - General 09/22/24
--- OUTSIDE RECORDS SUMMARY | 2025-03-16 14:39 | XMS_ITS | Encounter Summary ---
Author Organization [employer] Address [address] [facility] [address] [place] [address] Care Team Providers Care Ceo Ziff Davis Name Role Phone Name, Nitin PIKE Primary Care Provider [phone] Reason for Visit * Reason Onset Date Comments FYI 08/11/2024 Encounter Details Date Type Department Care Team ([facility] st Contact Info) Description 08/11/2024 Telephone [facility] [address] [place], [place] [phone] Name, MD Nitin [address] [place] [address] FYI Social History Tobacco Use Types Packs/Day [...] any questions or concerns contact Darryl at [phone] documented in this encounter Plan of Treatment Upcoming Encounters Date Type Department Care Team ([facility] st Contact Info) Description 04/29/2025 10:00 AM EDT Office Visit [facility] [address] [place] [address] Name, MD Nitin [address] [place] [address] documented as of this encounter Visit Diagnoses Not on filedocumented in this encounter Additional Health Concerns Assessment Noted Time PHQ-9 Depression Total Score: 6 02/13/20 24 9:14 AM EDT documented as of this encounter Care Teams Ceo Ziff Davis Relationship Specialty Start Date End Date Name, MD Nitin [address] [place] [address] PCP - General Family Medicine 08/26/17 [facility] 09/01/24 documented as of this encounter
--- OUTSIDE RECORDS SUMMARY | 2025-03-16 14:39 | XMS_ITS | Encounter Summary ---
Author Organization [employer] Address [address] [facility] [address] [place] [address] Care Team Providers Care Matting Press Tender Name Role Phone Name, Nitin PIKE Primary Care Provider [phone] Reason for Visit * Reason Comments Med Refill Encounter Details Date Type Department Care Team (Late st Contact Info) Description 01/09/2025 Refill [facility] [address] [place] [address] [phone] Name, MD Nitin [address] [place] [address] Hypertension, unspecified type Social History Tobacco Use [...] 04/29/2025 10:00 AM EDT Office Visit [facility] [address] [place] [address] NameNitin MD [address] [place] [address] documented as of this encounter Visit Diagnoses Diagnosis Hypertension, unspecified type documented in this encounter Additional Health Concerns Assessment Noted Time PHQ-9 Depression Total Score: 6 02/13/20 9:14 AM EDT documented as of this encounter Care Teams Matting Press Tender Relationship Specialty Start Date End Date NameNitin MD [address] [place] [address] PCP - General Family Medicine 08/26/17 [facility] 09/01/24 documented as of this encounter
--- OUTSIDE RECORDS SUMMARY | 2025-03-16 14:39 | XMS_ITS | Encounter Summary ---
Author Organization [employer] Address [address] [facility] 7[address] [place] [address] Care Team Providers Care Decontamination Technician Name Role Phone Name, Nitin PIKE Primary Care Provider [phone] Reason for Visit * Reason Onset Date Comments Results 08/29/2023 Encounter Details Date Type Department Care Team ([facility] st Contact Info) Description 08/29/2023 Telephone [facility] [address] [place], [place] [phone] Name, MD Nitin [address] [place] [address] Results Social History Tobacco Use Types Packs/Day [...] 09/01/2023 11:51 AM EDT Pt evaluated in [facility] today and is scheduled with pcp 09/03/23. * Telephone Encounter - Janette Huitron - 08/29/2023 4:06 PM EDT Tc from pt requesting a call in regards to urine results. Please contact pt at [phone] (Tristanian) documented in this encounter Plan of Treatment Upcoming Encounters Date Type Department Care Team (Late st Contact Info) Description 04/29/2025 10:00 AM EDT Office Visit [facility] [address] [place] [address] Name, MD Nitin [address] [place] [address] documented as of this encounter Visit Diagnoses Not on filedocumented in this encounter Additional Health Concerns Assessment Noted Time PHQ-9 Depression Total Score: 12 023 9:37 AM EDT documented as of this encounter Care Teams Decontamination Technician Relationship Specialty Start Date End Date Name, MD Nitin [address] [place] [address] PCP - General Family Medicine 08/26/17 [facility] 09/01/24 documented as of this encounter
--- OUTSIDE RECORDS SUMMARY | 2025-03-16 14:39 | XMS_ITS | Encounter Summary ---
Author Organization [employer] Address [address] [facility] [address] [place] [address] Care Team Providers Care Circuit Breaker Mechanic Name Role Phone Name, Nitin PIKE Primary Care Provider [phone] Encounter Details Date Type Department Care Team (Late Contact Info) Description 08/08/2023 Telephone [facility] [address] [place] [address] [phone] Name, MD Nitin [address] [place] [address] [phone] Social History Tobacco Use Types Packs/Day Years [...] Office Visit [facility] [address] [place] [address] [phone] Name, MD Nitin [address] [place] [address] [phone] documented as of this encounter Visit Diagnoses Not on filedocumented in this encounter Additional Health Concerns Assessment Noted Time PHQ-9 Depression Total Score: 12 023 9:37 AM EDT documented as of this encounter Care Teams Circuit Breaker Mechanic Relationship Specialty Start Date End Date Name, MD Nitin [address] [place] [address] PCP - General Family Medicine 08/26/17 [facility] 09/01/24 documented as of this encounter
--- OUTSIDE RECORDS SUMMARY | 2025-03-16 14:39 | XMS_ITS | Encounter Summary ---
Author Organization [employer] Address [address] [facility] [address] [place] [address] Care Team Providers Care Shipping Specialist Name Role Phone Name, Nitin PIKE Primary Care Provider [phone] Reason for Visit * Reason Onset Date Comments Med Refill 11/08/2024 Encounter Details Date Type Department Care Team ([facility] st Contact Info) Description 11/08/2024 Telephone [facility] [address] [place], [place] [phone] Name, MD Nitin [address] [place] [address] Med Refill Social History Tobacco Use Types [...] 5 MG tablet To be sent to: [facility] [place], [place] - [address] [facility] documented in this encounter Plan of Treatment Upcoming Encounters Date Type Department Care Team ([facility] st Contact Info) Description 04/29/2025 10:00 AM EDT Office Visit [facility] [address] [place] [address] Name, MD Nitin [address] [place] [address] documented as of this encounter Visit Diagnoses Not on filedocumented in this encounter Additional Health Concerns Assessment Noted Time PHQ-9 Depression Total Score: 6 02/13/20 24 9:14 AM EDT documented as of this encounter Care Teams Shipping Specialist Relationship Specialty Start Date End Date Name, MD Nitin [address] [place] [address] PCP - General Family Medicine 08/26/17 [facility] 09/01/24 documented as of this encounter
--- OUTSIDE RECORDS SUMMARY | 2025-03-16 14:39 | XMS_ITS | Encounter Summary ---
Author Organization [employer] Address [address] [facility] [address] [place] [address] Care Team Providers Care Sample Coordinator Name Role Phone Name, Nitin PIKE Primary Care Provider [phone] Reason for Visit * Reason Onset Date Comments Hospital Follow-up 10/20/2024 Encounter Details Date Type Department Care Team ([facility] st Contact Info) Description 10/20/2024 Telephone [facility] [address] [place], [place] [phone] Name, MD Nitin [address] [place] [address] Hospital Follow-up Social History Tobacco Use Types [...] from pt requesting a HDF appt. Hospital: [facility] Date of admission: 10/17 Discharge date: 10/19 Diagnosed: High Blood Pressure and Fever Contact pt at [phone] *Send message to [place] [facility] Care Coordinators documented in this encounter Plan of Treatment Upcoming Encounters Date Type Department Care Team (Late st Contact Info) Description 04/29/2025 10:00 AM EDT Office Visit [facility] [address] [place], [place] [phone] Name, MD Nitin [address] [place] [address] documented as of this encounter Visit Diagnoses Not on filedocumented in this encounter Additional Health Concerns Assessment Noted Time PHQ-9 Depression Total Score: 6 02/13/20 24 9:14 AM EDT documented as of this encounter Care Teams Sample Coordinator Relationship Specialty Start Date End Date Name, MD Nitin [address] [place] [address] PCP - General Family Medicine 08/26/17 [facility] 09/01/24 documented as of this encounter
--- OUTSIDE RECORDS SUMMARY | 2025-03-16 14:39 | XMS_ITS | Encounter Summary ---
Author Organization [employer] Address [address] [facility] [address] [place] [address] Care Team Providers Care Software Development Engineer Name Role Phone Name, Nitin PIKE Primary Care Provider [phone] Reason for Visit * Reason Onset Date Comments ER Follow-up 05/31/2024 Encounter Details Date Type Department Care Team ([facility] st Contact Info) Description 05/31/2024 Telephone [facility] [address] [place], [place] [phone] Name, MD Nitin [address] [place] [address] ER Follow-up Social History Tobacco Use Types [...] 05/31/2024 1:36 PM EDT T/C to Pat ([facility]) [phone] for below message, no answer. LVM to call back on [phone]. * Telephone Encounter - Melany Santos RN - 05/31/2024 1:32 PM EDT DAVID T/C to pt. Through [employer] id - [id number] for below message, pt. Had recent fall and ED visit at [facility]. RN will request GRACE piedra from [facility]. Pt. Is doing good, states I am tired andsleeping. Pt. Dose not has any question or concern right now. Pt. Already has HDF apt. Schedule on 06/10/2024. Pt. Advised to give call to [facility] if any questions or concerns. Pt. Verbally agreed and understood. Please review and advise if needed. * Telephone Encounter - Adithya Solorzano - 05/31/2024 12:50 PM EDT Patient calling to report ED visit on : Date: 05/26 Hospital: [facility] Seen for: Fall, Back Pain Pat stated pt is requesting a sooner apt with pcp due to recent ER visit. PT is also requesting order for PT services for to go along with [facility]. documented in this encounter Plan of Treatment Upcoming Encounters Date Type Department Care Team (Late st Contact Info) Description 04/29/2025 10:00 AM EDT Office Visit [facility] [address] [place] [address] Name, MD Nitin [address] [place] [address] documented as of this encounter Visit Diagnoses Not on filedocumented in this encounter Additional Health Concerns Assessment Noted Time PHQ-9 Depression Total Score: 6 02/13/20 24 9:14 AM EDT documented as of this encounter Care Teams Software Development Engineer Relationship Specialty Start Date End Date Name, MD Nitin [address] [place] [address] PCP - General Family Medicine 08/26/17 [facility] 09/01/24 documented as of this encounter
--- OUTSIDE RECORDS SUMMARY | 2025-03-16 14:39 | XMS_ITS | Encounter Summary ---
Author Organization [employer] Address [address] [facility] [address] [place] [address] Care Team Providers Care Benefits Administrator Name Role Phone Name, Nitin PIKE Primary Care Provider [phone] Reason for Visit * Reason Onset Date Comments ER Follow-up 05/04/2024 Encounter Details Date Type Department Care Team ([facility] st Contact Info) Description 05/04/2024 Telephone [facility] [address] [place], [place] [phone] Name, MD Nitin [address] [place] [address] ER Follow-up Social History Tobacco Use Types [...] 11:01 AM EDT T/C to pt. Through [employer] id - [id number] for below message, No answer. LVM to call back [phone] . * Telephone Encounter - Adithya Solorzano - 05/04/2024 9:35 AM EDT Noreen with [facility] calling to report ED visit on : Date: 04/28 Hospital: [facility] Seen for: UTI, Nausea, Rash. Noreen advised will be forwarding message to team nurses. Please contact pt at [phone]. documented in this encounter Plan of Treatment Upcoming Encounters Date Type Department Care Team (Late st Contact Info) Description 04/29/2025 10:00 AM EDT Office Visit [facility] [address] [place] [address] Name, MD Nitin [address] [place] [address] documented as of this encounter Visit Diagnoses Not on filedocumented in this encounter Additional Health Concerns Assessment Noted Time PHQ-9 Depression Total Score: 6 02/13/20 9:14 AM EDT documented as of this encounter Care Teams Benefits Administrator Relationship Specialty Start Date End Date Name, MD Nitin [address] [place] [address] PCP - General Family Medicine 08/26/17 [facility] 09/01/24 documented as of this encounter
--- OUTSIDE RECORDS SUMMARY | 2025-03-16 14:40 | XMS_ITS | Encounter Summary ---
Author Organization [employer] Address [address] [facility] [address] [place] [address] Care Team Providers Care Resin Remover Name Role Phone Name, Nitin PIKE Primary Care Provider [phone] Reason for Visit * Reason Onset Date Comments returning call back 03/15/2025 Encounter Details Date Type Department Care Team ([facility] st Contact Info) Description 03/15/2025 Telephone [facility] MEDICINE [address] [place], [place] [phone] Lyric Anderson MA returning call back Social History Tobacco Use Types Packs/Day Years [...] encounter Miscellaneous Notes * Telephone Encounter - Lyric Anderson MA - 03/15/2025 9:58 AM EDT T/c placed to pt returning phone call back , pt calling to verify what department left her voicemail, Pt didn't understand voicemail but said vm was left by a male.Please return call to clarify information due to pt stating she wouldn't be able to sleep thinking is something bad, . MALIA spoke to Noreen and told her I don't have any documents on who called her , I questioned pt if the number was from here or a referral, pt states it from [facility] told pt if its important they will call her back , pt says okay and thank you for calling back documented in this encounter Plan of Treatment Upcoming Encounters Date Type Department Care Team (Late st Contact Info) Description 04/29/2025 10:00 AM EDT Office Visit [facility] MEDICINE [address] [place] [address] Name, MD Nitin [address] [place] [address] documented as of this encounter Visit Diagnoses Not on filedocumented in this encounter Additional Health Concerns Assessment Noted Time PHQ-9 Depression Total Score: 6 02/13/20 24 9:14 AM EDT documented as of this encounter Care Teams Resin Remover Relationship Specialty Start Date End Date Name, MD Nitin [address] [place] [address] PCP - General Family Medicine 08/26/17 [facility] 09/01/24 documented as of this encounter
--- OUTSIDE RECORDS SUMMARY | 2025-03-16 14:40 | XMS_ITS | Encounter Summary ---
Author Organization [email or web address] Address [address] [facility] [address] [place] [address] Care Team Providers Care Adult Protective Caseworker Name Role Phone Name, Nitin PIKE Primary Care Provider [phone] Reason for Visit * Reason Onset Date Comments Call Back Request 03/14/2025 Encounter Details Date Type Department Care Team ([facility] st Contact Info) Description 03/14/2025 Telephone [facility] MEDICINE [address] [place], [place] [phone] Name, MD Nitin [address] [place] [address] Call Back Request Social History Tobacco Use Types Packs/Day Years [...] encounter Miscellaneous Notes * Telephone Encounter - Vladislav Ro - 03/14/2025 4:15 PM EDT Tc from pt calling to verify what department left her voicemail, Pt didn't understand voicemail butsaid vm was left by a male. Please return call to clarify information due to pt stating she wouldn't be able to sleep thinking is something bad, documented in this encounter Plan of Treatment Upcoming Encounters Date Type Department Care Team (Late st Contact Info) Description 04/29/2025 10:00 AM EDT Office Visit [facility] MEDICINE [address] [place] [address] Name, MD Nitin [address] [place] [address] documented as of this encounter Visit Diagnoses Not on filedocumented in this encounter Additional Health Concerns Assessment Noted Time PHQ-9 Depression Total Score: 6 02/13/20 9:14 AM EDT documented as of this encounter Care Teams Adult Protective Caseworker Relationship Specialty Start Date End Date Name, MD Nitin [address] [place] [address] PCP - General Family Medicine 08/26/17 [facility] 09/01/24 documented as of this encounter
--- OUTSIDE RECORDS SUMMARY | 2025-03-16 14:40 | XMS_ITS | Encounter Summary ---
Author Organization [employer] Address [address] [facility] [address] [place] [address] Care Team Providers Care River Pilot Name Role Phone NameNitin MD Primary Care Provider [phone] Encounter Details Date Type Department Care Team ([facility] Contact Info) Description 01/06/2023 Orders Only [facility] CHC MED & PEDS [address] [place], [place] [phone] Lisha Kelly LPN Social History Tobacco Use [...] Description 04/29/2025 10:00 AM EDT Office Visit [facility] MEDICINE [address] [place], [place] [phone] NameNitin MD [address] [place] [address] documented as of this encounter Visit Diagnoses Not on filedocumented in this encounter Care Teams River Pilot Relationship Specialty Start Date End Date NameNitin MD [address] [place] [address] PCP - General Family Medicine 08/26/17 [facility] 09/01/24 documented as of this encounter
--- OUTSIDE RECORDS SUMMARY | 2025-03-16 14:40 | XMS_ITS | Encounter Summary ---
Author Organization [employer] Address [address] [facility] [address] [place] [address] Care Team Providers Care Food Technology Teacher Name Role Phone Name, Nitin PIKE Primary Care Provider Encounter Details Date Type Department Care Team ([facility] Contact Info) Description 12/17/2022 Orders Only [facility] CHC MED & PEDS [address] [place], [place] [phone] Lisha Kelly LPN Social History Tobacco Use [...] Office Visit [facility] MEDICINE [address] [place] [address] Nitin Echevarria MD [address] [place] [address] documented as of this encounter Visit Diagnoses Not on filedocumented in this encounter Care Teams Food Technology Teacher Relationship Specialty Start Date End Date NameNitin MD [address] [place] [address] PCP - General Family Medicine 08/26/17 [facility] 09/01/24 documented as of this encounter
--- OUTSIDE RECORDS SUMMARY | 2025-03-16 14:40 | XMS_ITS | Encounter Summary ---
Author Organization [email or web address] Address [address] [facility] [address] [place] [address] Care Team Providers Care Area Manager Name Role Phone Name, Nitin PIKE Primary Care Provider [phone] Reason for Visit * Reason Onset Date Comments FYI 01/21/2024 ER Follow-up 01/21/2024 Encounter Details Date Type Department Care Team ([facility] st Contact Info) Description 01/21/2024 Telephone [facility] MEDICINE [address] [place], [place] [phone] Name, MD Nitin [address] [place] [address] FYI; ER Follow-up Social History Tobacco Use [...] - 01/21/2024 1:54 PM EDT Message from [facility] ED noted. [facility] note sent to medical records. PCP does not rx Trazodone. Pt to f/u with psych prescriber. Pt is scheduled for f/u with pcp 02/13/24. * Telephone Encounter - Janette Huitron - 01/21/2024 9:45 AM EDT Tc from nata with [facility] ED calling in regards to pt. States pt was seen today for anxiety and is requesting trazodone. Will discharge pt with no medication change. Would also like to advise provider, pt was seen at [facility] on 01/17 for anxiety/insomnia as well documented in this encounter Plan of Treatment Upcoming Encounters Date Type Department Care Team (Late st Contact Info) Description 04/29/2025 10:00 AM EDT Office Visit [facility] MEDICINE [address] [place] [address] Name, MD Nitin [address] [place] [address] documented as of this encounter Visit Diagnoses Not on filedocumented in this encounter Additional Health Concerns Assessment Noted Time PHQ-9 Depression Total Score: 12 023 9:37 AM EDT documented as of this encounter Care Teams Area Manager Relationship Specialty Start Date End Date Name, MD Nitin [address] [place] [address] PCP - General Family Medicine 08/26/17 [facility] 09/01/24 documented as of this encounter
--- OUTSIDE RECORDS SUMMARY | 2025-03-16 14:40 | XMS_ITS | Encounter Summary ---
Author Organization [employer] Address [address] [facility] [address] [place] [address] Care Team Providers Care Twister Tender Name Role Phone Name, Nitin PIKE Primary Care Provider [phone] Reason for Visit * Reason Onset Date Comments Durable Medical Equipment 12/09/2023 Encounter Details Date Type Department Care Team ([facility] st Contact Info) Description 12/09/2023 Telephone [facility] MEDICINE [address] [place], [place] [phone] Name, MD Nitin [address] [place] [address] Durable Medical Equipment Social History Tobacco Use [...] EST DME rx faxed to [facility] as requested. RN will consult with S nurse and provide referral. * Telephone Encounter - Fozia Jacob RN - 12/09/2023 4:58 PM EST Call returned to [facility] at [facility] [phone] ext. [phone]. [facility] states that [facility] attempted to provide PT at home but pt refused. [facility] pt is requesting outpatient PT. [facility] pt is seeing a counselor more regularly and has agreed to VNA referral. Reports pt has had 3 falls in the past 2 months. [facility] states [facility] no longer has visiting nurses. [facility] recommends [facility] or [facility] for VNA referral. [facility] also requesting DME rx for rollator walker and a straight cane. Requests that DME rx be faxed to [phone]. Advised requests will be sent to pcp. * Telephone Encounter - Adithya Solorzano - 12/09/2023 4:25 PM EST Tc from [facility] requesting DME: Rollator walker . documented in this encounter Plan of Treatment Upcoming Encounters Date Type Department Care Team (Late st Contact Info) Description 04/29/2025 10:00 AM EDT Office Visit [facility] MED[facility]INE [address] [facility] [place] [address] Name, MD Nitin [address] [facility] [place] [address] documented as of this encounter Visit Diagnoses Not on filedocumented in this encounter Additional Health Concerns Assessment Noted Time PHQ-9 Depression Total Score: 12 023 9:37 AM EDT documented as of this encounter Care Teams Twister Tender Relationship Specialty Start Date End Date Name, MD Nitin [facility] [place] [address] PCP - General Family Medicine 08/26/17 [facility] 09/01/24 documented as of this encounter
--- OUTSIDE RECORDS SUMMARY | 2025-03-16 14:40 | XMS_ITS | Encounter Summary ---
Author Organization [employer] Address [address] [facility] [address] [place] [address] Care Team Providers Care Cage Shift Manager Name Role Phone Name, Nitin PIKE Primary Care Provider [phone] Reason for Visit * Reason Onset Date Comments Verbal Orders 01/02/2024 Encounter Details Date Type Department Care Team ([facility] st Contact Info) Description 01/02/2024 Telephone [facility] MEDICINE [address] [place], [place] [phone] Name, MD Nitin [address] [place] [address] Verbal Orders Social History Tobacco Use Types [...] No answer. LVM to call back on [phone]. * Telephone Encounter - Melany Santos RN - 01/06/2024 10:25 AM EST Please review and advise for below request. * Telephone Encounter - Deana Bazzi - 01/02/2024 3:44 PM EST Tc from [facility] with [facility] requesting verbal orders for discharge pt from Occupational Therapy, due to pt refuses services, please contact [facility] at [phone]. documented in this encounter Plan of Treatment Upcoming Encounters Date Type Department Care Team (Late st Contact Info) Description 04/29/2025 10:00 AM EDT Office Visit [facility] MEDICINE [address] [place] [address] Name, MD Nitin [address] [place] [address] documented as of this encounter Visit Diagnoses Not on filedocumented in this encounter Additional Health Concerns Assessment Noted Time PHQ-9 Depression Total Score: 12 023 9:37 AM EDT documented as of this encounter Care Teams Cage Shift Manager Relationship Specialty Start Date End Date Name, MD Nitin [address] [place] [address] PCP - General Family Medicine 08/26/17 [facility] 09/01/24 documented as of this encounter
--- OUTSIDE RECORDS SUMMARY | 2025-03-16 14:40 | XMS_ITS | Encounter Summary ---
Author Organization [employer] Address [address] [facility] [address] [place] [address] Care Team Providers Care High School Director Name Role Phone Name, Nitin PIKE Primary Care Provider [phone] Reason for Visit * Reason Onset Date Comments triage 12/18/2022 Encounter Details Date Type Department Care Team ([facility] st Contact Info) Description 12/18/[address] [facility] MEDICINE [address] [place], [place] [phone] Name, MD Nitin [address] [place] [address] triage Social History Tobacco Use Types Packs/Day [...] 12/18/2022 2:35 PM EST Called pt. [facility] [employer] problem manager [phone] Eduardo. Pt. States that she has a [...] phone. Please reach out to pt. With Telugu speaking another time to see what her [...] 04/29/2025 10:00 AM EDT Office Visit [facility] MEDICINE [address] [place] [address] Name, MD Nitin [address] [place] [address] documented as of this encounter Visit Diagnoses Not on filedocumented in this encounter Care Teams High School Director Relationship Specialty Start Date End Date NameNitin MD [address] [place] [address] PCP - General Family Medicine 08/26/17 [facility] 09/01/24 documented as of this encounter
--- OUTSIDE RECORDS SUMMARY | 2025-03-16 14:40 | XMS_ITS | Encounter Summary ---
Author Organization [employer] Address [address] [facility] [address] [place] [address] Care Team Providers Care Sand Conditioner Machine Name Role Phone Name, Nitin PIKE Primary Care Provider [phone] Reason for Visit * Reason Comments Med Refill Encounter Details Date Type Department Care Team (Late Contact Info) Description 03/02/2023 Refill [facility] MEDICINE [address] [place] [address] Karely Patiño MD [address] [place] [address] [phone] Social History Tobacco Use Types Packs/Day Years [...] 10:00 AM EDT Office Visit [facility] MEDICINE [address] [place] [phone] Wale, MD Nitin [address] [place] [address] documented as of this encounter Visit Diagnoses Not on filedocumented in this encounter Care Teams Sand Conditioner Machine Relationship Specialty Start Date End Date Name, MD Nitin [address] [place] [address] PCP - General Family Medicine 08/26/17 [facility] 09/01/24 documented as of this encounter
--- OUTSIDE RECORDS SUMMARY | 2025-03-16 14:40 | XMS_ITS | Encounter Summary ---
Author Organization [employer] Address [address] [facility] [address] [place] [address] Care Team Providers Care Ict Support And Test Engineers Name Role Phone Name, Nitin PIKE Primary Care Provider [phone] Reason for Visit * Reason Onset Date Comments Order(s) 12/09/2023 Encounter Details Date Type Department Care Team ([facility] st Contact Info) Description 12/09/2023 Telephone [facility] MEDICINE [address] [place], [place] [phone] Name, MD Nitin [address] [place], [place] [phone] Order(s) Social History Tobacco Use Types Packs/Day [...] orders. If any questions please contact Noreen [phone]. documented in this encounter Plan of Treatment Upcoming Encounters Date Type Department Care Team (Late st Contact Info) Description 04/29/2025 10:00 AM EDT Office Visit [facility] MEDICINE [address] [place] [address] Name, MD Nitin [address] [place] [address] documented as of this encounter Visit Diagnoses Not on filedocumented in this encounter Additional Health Concerns Assessment Noted Time PHQ-9 Depression Total Score: 12 023 9:37 AM EDT documented as of this encounter Care Teams Ict Support And Test Engineers Relationship Specialty Start Date End Date Name, MD Nitin [address] [place] [address] PCP - General Family Medicine 08/26/17 [facility] 09/01/24 documented as of this encounter
--- OUTSIDE RECORDS SUMMARY | 2025-03-16 14:40 | XMS_ITS | Encounter Summary ---
Author Organization [employer] Address 75 [facility] 7[address] [place] [address] Care Team Providers Care Telesales Representative Name Role Phone Name, Nitin PIKE Primary Care Provider Reason for Visit * Reason Onset Date Comments Verbal Orders 12/15/2023 Encounter Details Date Type Department Care Team ([facility] st Contact Info) Description 12/15/2023 Telephone [facility] MEDICINE [address] [place], [place] [phone] Name, MD Nitin [address] [place] [address] Verbal Orders Social History Tobacco Use Types [...] 12:03 PM EST Tc from [facility] with [employer] requesting verbal order to see pt 2 times a week for 4 weeks for Occupational Therapy, please contact [facility] at [phone] documented in this encounter Plan of Treatment Upcoming Encounters Date Type Department Care Team (Late st Contact Info) Description 04/29/2025 10:00 AM EDT Office Visit [facility] MEDICINE [address] [place] [address] Name, MD Nitin [address] [place] [address] documented as of this encounter Visit Diagnoses Not on filedocumented in this encounter Additional Health Concerns Assessment Noted Time PHQ-9 Depression Total Score: 12 023 9:37 AM EDT documented as of this encounter Care Teams Telesales Representative Relationship Specialty Start Date End Date Name, MD Nitin [address] [place] [address] PCP - General Family Medicine 08/26/17 [facility] 09/01/24 documented as of this encounter
== END 2025-03-16 14:32 | disposition home or self-care (01) ==
LOC: HO.HKAM 13:24
PROVIDERS: PCP Internal Medicine Geriatric Medicine; Visit Provider Internal Medicine Hypertension Specialist
DX: E87.1 Hypo-osmolality and hyponatremia (principal); N18.31 Chronic kidney disease, stage 3a
CPT/HCPCS: 99214

== ENCOUNTER → 2025-03-16 13:24 | Outpatient (BNVA) | payer OTHER, SELFPAY | PROVIDERS: PCP Internal Medicine Geriatric Medicine; Visit Provider Internal Medicine Hypertension Specialist | DX: E87.1 Hypo-osmolality and hyponatremia (principal); N18.31 Chronic kidney disease, stage 3a; E78.5 Hyperlipidemia, unspecified; F41.1 Generalized anxiety disorder; I10 Essential (primary) hypertension; K21.9 Gastro-esophageal reflux disease without esophagitis | CPT/HCPCS: 99212 ==

== ENCOUNTER 2025-03-27 01:53 | Emergency (ER) | payer OTHER, SELFPAY ==
--- NOTE | ~2025-03-27 | XR_ITS ---
CLINICAL HISTORY: pain 3 views lumbar spine Comparison: X-rays of the lumbar spine from 08/20/2023 Findings: Mild vertebral height losses of the thoracolumbar junction are age indeterminate by radiographs, and not significantly changed relative to comparison. Trace retrolisthesis of the L2-L3. Multilevel facet arthropathy severe. Degenerative disc changes including disc height losses including L1-L2 and L2-L3. Disc calcification noted of the lumbosacral junction. Ligament calcifications are multifocal. Sacrum and SI joints are mostly obscured with degenerative changes in the partially imaged SI joints of the partially imaged hips. IMPRESSION: 1. Degenerative changes include marked facet arthropathy. 2. Mild vertebral height losses of the thoracolumbar junction are not significantly changed compared to 08/20/2023. This document has been electronically signed by: Kenyon Hatch MD on 03/27/2025 03:05:08
[2025-03-27 01:59] VITALS: BP 130/68; BP 140/80; PULSE 81; PULSE 90; RESP 16; TEMP 37.3; O2SAT 96; O2SAT 98; BMI 34.0
[2025-03-27 02:06] VITALS: BP 130/68; PULSE 81; RESP 16; TEMP 37.3; O2SAT 96
--- NOTE | 2025-03-27 02:43 | ED_ITS ---
HPI - General Adult General Chief complaint: General Medical Stated complaint: Back pain Time Seen by Provider: 03/27/25 01:56 Source: patient, RN notes reviewed, old records reviewed and folder hand Mode of arrival: EMS Limitations: language barrier History of Present Illness ED Provider: Aniyah HPI narrative: 79-year-old female who was well known to this facility for multiple presentat ions presents for evaluation of decreased hearing from the left ear, painful swallowing and back pain. She also notes that she had an elevated blood pressure reading but is unsure how high it was she reports that she has been compliant with all of her medications. She states that she has had hearing loss for about 1 year to the left ear she states that she has had a sore throat for a few weeks she states that she has had about 10 negative COVID tests and several negative strep tests the patient also complains of lower back pain that is worse when she tries to get out of bed this has been present for a few months. She denies any recent falls, denies any numbness or tingling. Denies any abdominal pain, nausea, vomiting, diarrhea denies any chest pain, shortness of breath Related Data Home Medications ?Medication ?Instructions ?Recorded ?Confirmed mirtazapine 45 mg tablet 45 mg PO BEDTIME 08/09/20 03/16/25 omeprazole 20 mg tablet,delayed 20 mg PO DAILY@0630 08/09/20 03/16/25 release aspirin 81 mg tablet,delayed 81 mg PO QAM 01/28/24 03/16/25 release bisacodyl 5 mg tablet,delayed 5 mg PO DAILY PRN constipation 01/28/24 03/16/25 release diphenhydramine HCl 25 mg tablet 25 mg PO BEDTIME PRN itch 01/28/24 03/16/25 (Lou-Dryl) ferrous sulfate 325 mg (65 mg 325 mg PO DAILY 01/28/24 03/16/25 iron) tablet (FeroSul) melatonin 10 mg tablet,extended 10 mg PO BEDTIME PRN Insomnia 01/28/24 03/16/25 release multivitamin 1 tab PO QAM 01/28/24 03/16/25 rosuvastatin 20 mg tablet 20 mg PO BEDTIME 01/28/24 03/16/25 trazodone 50 mg tablet 50 mg PO BEDTIME 01/28/24 03/16/25 amlodipine 10 mg tablet 10 mg PO DAILY 02/09/24 03/16/25 acetaminophen 500 mg tablet 500 mg PO Q8H PRN pain 08/09/24 03/16/25 ipratropium bromide 21 mcg (0.03 2 spray intranasal BID 08/09/24 03/16/25 %) nasal spray zolpidem 5 mg tablet 5 mg PO BEDTIME PRN Insomnia 08/09/24 03/16/25 cholecalciferol (vitamin D3) 25 25 mcg PO DAILY 08/20/24 03/16/25 mcg (1,000 unit) tablet meclizine 25 mg tablet 25 mg PO DAILY PRN 09/29/24 03/16/25 sertraline 100 mg tablet 100 mg PO DAILY 03/16/25 03/16/25 Previous Rx's ?Medication ?Instructions ?Recorded metoprolol succinate 50 mg 50 mg PO DAILY #90 tabs 09/28/20 tablet,extended release 24 hr fluticasone propionate 50 2 spray intranasal DAILY #16 grams 09/16/23 mcg/actuation nasal spray,suspension (Flonase Allergy Relief) ondansetron 4 mg disintegrating 4 mg PO Q6H PRN nausea and 04/28/24 tablet vomiting #10 tabs hydroxyzine HCl 25 mg tablet 25 mg PO TID PRN anxiety #6 tabs 08/07/24 clonazepam 0.5 mg tablet 0.5 mg PO TID #180 tabs 08/10/24 gabapentin 100 mg capsule 100 mg PO TID #180 caps 08/10/24 hydroxyzine HCl 25 mg tablet 25 mg PO TID PRN anxiety #20 tabs 09/09/24 miconazole nitrate 2 % vaginal 1 appful vaginal BEDTIME 7 days 10/09/24 cream (Monistat 7) #45 grams nitrofurantoin 100 mg PO Q12H 3 days #6 caps 10/09/24 monohydrate/macrocrystals 100 mg capsule (Macrobid) miconazole nitrate 2 % topical 1 appl topical BID #28 grams 01/01/25 cream valsartan 160 mg tablet 160 mg PO DAILY #90 tabs 01/20/25 ofloxacin 0.3 % ear drops 10 drp otic (ears) DAILY 7 days #5 02/01/25 mL docusate sodium 100 mg capsule 200 mg (2 x 100 mg) PO BID #30 caps 02/07/25 (Col-Rite) polyethylene glycol 3350 17 17 g PO Q8H #238 grams 02/07/25 gram/dose oral powder (ClearLax) white petrolatum 41 % topical 1 appl topical BID PRN irritated 02/07/25 ointment (Advanced Healing skin #50 grams (Petrolatum)) azithromycin 250 mg tablet 250 mg PO DAILY 4 days #4 tabs 02/14/25 (Zithromax) docusate sodium 100 mg capsule 200 mg (2 x 100 mg) PO BID #20 caps 02/24/25 (Colace) polyethylene glycol 3350 17 17 g PO BID #119 grams 02/24/25 gram/dose oral powder (Miralax) simethicone 180 mg capsule 180 mg PO BID PRN abdominal 03/03/25 distention #14 caps Allergies Allergy/AdvReac Type Severity Reaction Status Date / Time penicillin G [Penicillin G] Allergy Severe ITCHY/RASH Verified 03/27/25 02:01 Sulfa (Sulfonamide Allergy Severe ITCHY,RASH, Verified 03/27/25 02:01 Antibiotics) rash [Sulfa (Sulfonamides)] trimethoprim [From Bactrim] Allergy Severe HIVES Verified 03/27/25 02:01 Penicillins Allergy Intermediate Hives Verified 03/27/25 02:01 sulfamethoxazole Allergy Mild Hives Verified 03/27/25 02:01 [From Bactrim] Review of Systems Constitutional: Constitutional: Denies body ache(s), Denies chills, Denies fever(s) and Denies headache(s) ENT: Denies vertigo, Denies dizziness, Reports otalgia, Denies headache(s) and Reports sore throat Cardiovascular: Cardiovascular: Denies chest pain and Denies dyspnea Respiratory: Respiratory: Denies cough and Denies dyspnea Gastrointestinal: Gastrointestinal: Denies abdominal pain Musculoskeletal: Musculoskeletal: Denies back pain Integumentary/Breasts: Skin/Breast: Denies rash Neurologic: Denies vertigo, Denies dizziness and Denies headache(s) [facility] Past Medical History Medical History Bleeding hemorrhoids Essential hypertension PVC (premature ventricular contraction) PAC (premature atrial contraction) SVT (supraventricular tachycardia) Chronic constipation High blood pressure Vertigo Dementia Arthritis Anxiety Surgical History No pertinent past surgical history Social History Social History (System 03/18/25 @ 10:49 by Bonnie Jarrett) Household Members: Other Household Members Other:: son Housing: Apartment Do you presently have visiting nurse or 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 (photographer portrait) Unable to assess alcohol history related to: Unknown Alcohol intake: never Patient Tobacco Use Status: Never used Tobacco Smoked in Last 30 Days: No Use of substances other than those prescribed or required for medical reasons: No Advance Directives: Yes Advance Directives on File: Yes Advance Directives Date on File: 01/28/24 service: No Physical Exam ED Vital Signs: Vital Signs - 24 hr 03/27/25 01:59 03/27/25 02:06 Temperature 99.1 F 99.1 F Pulse Rate 81 81 Respiratory Rate 16 16 Blood Pressure 130/68 130/68 Pulse Oximetry 96 96 Oxygen Delivery Method Room Air Room Air BMI result Body Mass Index 34.0 Const General: healthy appearing, comfortable, no acute distress, alert and awake Nutritional Appearance: well nourished Orientation/consciousness: patient oriented x3 HENMT Other: there is cerumen buildup in both ear canals. I am unable to visualize TM on the left. Head: Yes normocephalic and Yes atraumatic Throat: Yes posterior oropharynx normal Eyes Eyelids: Yes eyelids normal Conjunctivae: conjunctivae normal Sclerae: sclerae normal Corneas: corneas normal Pupils: Equal, round and reactive pupils present EOM: EOMs intact bilaterally Neck Neck: Yes full ROM Resp Effort & Inspection: normal respiratory effort, able to speak in complete sentences, no audible wheezes and not labored Auscultation: clear to auscultation bilaterally Cardio Rate: regular rate Rhythm: regular rhythm GI Inspection: No distended Palpation (GI): Soft to palpation, not firm, nontender, no guarding and not rigid Back/Spine/Pelvis Other: Lumbar spinal tenderness without step-offs or deformity. The patient is ambulatory with a steady, even gait Skin General skin exam: elasticity normal Neuro General: patient oriented x3 Cranial nerves: Yes Equal, round and reactive pupils present and Yes Bilaterally intact EOM present Cognition (Neuro): normal cognition Extrem Other: Moving all extremities well without any obvious deformities Medical Decision Making Medical Decision Making [facility] Narrative: 79-year-old female presents for evaluation of hearing loss in the left ear. She has a cerumen impaction. This was treated by flushing with a solution of warm water and hydrogen peroxide. I was able to remove a large amount of cerumen. The patient reports improved hearing postprocedure. There were no complications. After procedure, TM is visualized, faintly erythematous but no bulging or perforation. The retropharynx is visualized without erythema or exudates. An x-ray lumbar spine was ordered. There are no warning signs for cauda equina syndrome, the patient ambulates quite well. Differential Diagnosis Differential Diagnoses: The differential diagnosis associated with the presentation includes Otitis media Otitis externa Cerumen impaction Pharyngitis Strep pharyngitis Viral syndrome Allergies Back pain Spondylolisthesis Radiology Impression Discussion of test interpretation with radiology: I have reviewed the radiologist's reading. Radiologist Impression: Findings: Mild vertebral height losses of the thoracolumbar junction are age indeterminate by radiographs, and not significantly changed relative to comparison. Trace retrolisthesis of the L2-L3. Multilevel facet arthropathy severe. Degenerative disc changes including disc height losses including L1-L2 and L2-L3. Disc calcification noted of the lumbosacral junction. Ligament calcifications are multifocal. Sacrum and SI joints are mostly obscured with degenerative changes in the partially imaged SI joints of the partially imaged hips. IMPRESSION: 1. Degenerative changes include marked facet arthropathy. 2. Mild vertebral height losses of the thoracolumbar junction are not significantly changed compared to 08/20/2023. This document has been electronically signed by: Kenyon Hatch MD on 03/27/2025 03:05:08 Discharge Plan Discharge Clinical Impression: Impacted cerumen of left ear, Back pain Patient Disposition: Home, Self-Care Instructions: Back Pain (ED) Additional Instructions: You had excess ear wax in the left ear. This was flushed and a large amount of ear wax was removed You should not use Q-tips in your ear. You may use over the counter debrox drops in the left ear to soften ear wax and prevent buildup Your blood pressure was normal today. Take all of your medications as prescribed Your x-ray showed some arthritis of the lumbar spine You may use Tylenol to help with the pain Prescriptions: No Action metoprolol succinate 50 mg tablet extended release 24 hr 50 mg PO DAILY Qty: 90 2RF valsartan 160 mg tablet 160 mg PO DAILY Qty: 90 1RF mirtazapine 45 mg Tablet 45 mg PO BEDTIME omeprazole 20 mg Tablet,Delayed Release (Dr/Ec) 20 mg PO DAILY@0630 fluticasone propionate [Flonase Allergy Relief] 50 mcg/actuation spray,suspension 2 spray intranasal DAILY Qty: 16 0RF Rx Instructions: administer into each nostril hydroxyzine HCl 25 mg tablet 25 mg PO TID PRN (Reason: anxiety) Qty: 6 0RF hydroxyzine HCl 25 mg tablet 25 mg PO TID PRN (Reason: anxiety) Qty: 20 0RF miconazole nitrate 2 % cream 1 appl topical BID Qty: 28 0RF azithromycin [Zithromax] 250 mg tablet 250 mg PO DAILY 4 Days Qty: 4 0RF Rx Instructions: start on day 2 of therapy trazodone 50 mg tablet 50 mg PO BEDTIME ferrous sulfate [FeroSul] 325 mg (65 mg iron) tablet 325 mg PO DAILY diphenhydramine HCl [Lou-Dryl] 25 mg tablet 25 mg PO BEDTIME PRN (Reason: itch) bisacodyl 5 mg tablet,delayed release (DR/EC) 5 mg PO DAILY PRN (Reason: constipation) rosuvastatin 20 mg tablet 20 mg PO BEDTIME aspirin 81 mg tablet,delayed release (DR/EC) 81 mg PO QAM multivitamin Tablet 1 tab PO QAM melatonin 10 mg tablet extended release 10 mg PO BEDTIME PRN (Reason: Insomnia) cholecalciferol (vitamin D3) 25 mcg (1,000 unit) tablet 25 mcg PO DAILY ondansetron 4 mg tablet,disintegrating 4 mg PO Q6H PRN (Reason: nausea and vomiting) Qty: 10 0RF acetaminophen 500 mg tablet 500 mg PO Q8H PRN (Reason: pain) zolpidem 5 mg tablet 5 mg PO BEDTIME PRN (Reason: Insomnia) ipratropium bromide 21 mcg (0.03 %) spray,non-aerosol 2 spray intranasal BID clonazepam 0.5 mg Tablet 0.5 mg PO TID Qty: 180 0RF gabapentin 100 mg Capsule 100 mg PO TID Qty: 180 0RF nitrofurantoin monohyd/m-cryst [Macrobid] 100 mg capsule 100 mg PO Q12H 3 Days Qty: 6 0RF Rx Instructions: must administer with a meal/food miconazole nitrate [Monistat 7] 2 % cream 1 appful vaginal BEDTIME 7 Days Qty: 45 0RF ofloxacin 0.3 % drops 10 drp otic (ears) DAILY 7 Days Qty: 5 0RF docusate sodium [Col-Rite] 100 mg capsule 200 mg PO BID Qty: 30 0RF polyethylene glycol 3350 [ClearLax] 17 gram/dose powder 17 g PO Q8H Qty: 238 0RF Advanced Healing (Petrolatum) 41 % ointment 1 appl topical BID PRN (Reason: irritated skin) Qty: 50 0RF docusate sodium [Colace] 100 mg capsule 200 mg PO BID Qty: 20 0RF polyethylene glycol 3350 [Miralax] 17 gram/dose powder 17 g PO BID Qty: 119 0RF simethicone 180 mg capsule 180 mg PO BID PRN (Reason: abdominal distention) Qty: 14 0RF sertraline 100 mg tablet 100 mg PO DAILY amlodipine 10 mg tablet 10 mg PO DAILY meclizine 25 mg tablet 25 mg PO DAILY PRN Print Language: Eritrean
--- OUTSIDE RECORDS SUMMARY | 2025-03-27 03:02 | XMS_ITS | Encounter Summary ---
Author Organization [employer] Address [address] [facility] [address] [place] [address] Care Team Providers Care Black Top Roller Name Role Phone Name, Nitin PIKE Primary Care Provider [phone] Reason for Visit * Reason Onset Date Comments triage 12/18/2022 Encounter Details Date Type Department Care Team ([facility] st Contact Info) Description 12/18/2022 Telephone [facility] [address] [place], [place] [phone] Name, MD Nitin [address] [place] [address] triage Social History Tobacco Use Types Packs/Day [...] 12/18/2022 2:35 PM EST Called pt. Via [employer] Private official court interpreter [phone] Eduardo. Pt. States that she has a [...] phone. Please reach out to pt. With Azeri speaking another time to see what her [...] EDT Office Visit [facility] [address] [place] [address] Name, MD Nitin [address] [place] [address] documented as of this encounter Visit Diagnoses Not on filedocumented in this encounter Care Teams Black Top Roller Relationship Specialty Start Date End Date NameNitin MD [address] [place] [address] PCP - General Family Medicine 08/26/17 [facility] 09/01/24 documented as of this encounter
--- OUTSIDE RECORDS SUMMARY | 2025-03-27 03:02 | XMS_ITS | Encounter Summary ---
Author Organization [facility] [employer] Address [address] [facility] [address] [place] [address] Care Team Providers Care Drawer In Dobby Loom Name Role Phone Name, Nitin PIKE Primary Care Provider [phone] Reason for Visit * Reason Onset Date Comments FYI 01/21/2024 ER Follow-up 01/21/2024 Encounter Details Date Type Department Care Team ([facility] st Contact Info) Description 01/21/2024 Telephone [facility] [address] [place], [place] [phone] Name, MD Nitin [address] [place] [address] FYI; ER Follow-up Social History Tobacco Use [...] - 01/21/2024 1:54 PM EDT Message from [facility] ED noted. [facility] note sent to medical records. PCP does not rx Trazodone. Pt to f/u with psych prescriber. Pt is scheduled for f/u with pcp 02/13/24. * Telephone Encounter - Janette Huitron - 01/21/2024 9:45 AM EDT Tc from [facility]ata with [facility] ED calling in regards to pt. States pt was seen today for anxiety and is requesting trazodone. Will discharge pt with no medication change. Would also like to advise provider, pt was seen at [facility] on 01/17 for anxiety/insomnia as well documented in this encounter Plan of Treatment Upcoming Encounters Date Type Department Care Team (Late st Contact Info) Description 04/29/2025 10:00 AM EDT Office Visit [facility] [address] [place] [address] Name, MD Nitin [address] [place] [address] documented as of this encounter Visit Diagnoses Not on filedocumented in this encounter Additional Health Concerns Assessment Noted Time PHQ-9 Depression Total Score: 12 023 9:37 AM EDT documented as of this encounter Care Teams Drawer In Dobby Loom Relationship Specialty Start Date End Date Name, MD Nitin [address] [place] [address] PCP - General Family Medicine 08/26/17 [facility] 09/01/24 documented as of this encounter
--- OUTSIDE RECORDS SUMMARY | 2025-03-27 03:02 | XMS_ITS | Encounter Summary ---
Author Organization [employer] Address [address] [facility] [address] [place] [address] Care Team Providers Care Electric Lift Truck Driver Name Role Phone Name, Nitin PIKE Primary Care Provider [phone] Reason for Visit * Reason Onset Date Comments Verbal Orders 01/02/2024 Encounter Details Date Type Department Care Team ([facility] st Contact Info) Description 01/02/2024 Telephone [facility] [address] [place], [place] [phone] Name, MD Nitin [address] [place] [address] Verbal Orders Social History Tobacco Use Types [...] No answer. LVM to call back on [phone]. * Telephone Encounter - Melany Santos RN - 01/06/2024 10:25 AM EST Please review and advise for below request. * Telephone Encounter - Deana Bazzi - 01/02/2024 3:44 PM EST Tc from [facility] with S requesting verbal orders for discharge pt from Occupational Therapy, due to pt refuses services, please contact [facility] at [phone]. documented in this encounter Plan of Treatment Upcoming Encounters Date Type Department Care Team (Late st Contact Info) Description 04/29/2025 10:00 AM EDT Office Visit [facility] [address] [place] [phone] Name, MD Nitin [address] [place] [address] documented as of this encounter Visit Diagnoses Not on filedocumented in this encounter Additional Health Concerns Assessment Noted Time PHQ-9 Depression Total Score: 12 023 9:37 AM EDT documented as of this encounter Care Teams Electric Lift Truck Driver Relationship Specialty Start Date End Date Name, MD Nitin [address] [place] [id number] PCP - General Family Medicine 08/26/17 [facility] 09/01/24 documented as of this encounter
--- OUTSIDE RECORDS SUMMARY | 2025-03-27 03:02 | XMS_ITS | Encounter Summary ---
Author Organization [employer] Address [address] [facility] [address] [place] [address] Care Team Providers Care Deicer Repairer Electric Name Role Phone Name, Nitin PIKE Primary Care Provider [phone] Reason for Visit * Reason Comments Med Refill Encounter Details Date Type Department Care Team (Late st Contact Info) Description 01/09/2025 Refill [facility] [address] [place] [address] [phone] Name, MD Nitin [address] [place] [address] Hypertension, unspecified type Social History Tobacco Use [...] 04/29/2025 10:00 AM EDT Office Visit [facility] [address] [place] [phone] NameNitin MD [address] [place] [address] documented as of this encounter Visit Diagnoses Diagnosis Hypertension, unspecified type documented in this encounter Additional Health Concerns Assessment Noted Time PHQ-9 Depression Total Score: 6 02/13/20 9:14 AM EDT documented as of this encounter Care Teams Deicer Repairer Electric Relationship Specialty Start Date End Date NameNitin MD [address] [place] [id number] PCP - General Family Medicine 08/26/17 [facility] 09/01/24 documented as of this encounter
--- OUTSIDE RECORDS SUMMARY | 2025-03-27 03:02 | XMS_ITS | Encounter Summary ---
Author Organization [employer] Address [address] [facility] [address] [place] [address] Care Team Providers Care Hospice Clinical Supervisor Name Role Phone Name, Nitin PIKE Primary Care Provider [phone] Reason for Visit * Reason Comments Med Refill Encounter Details Date Type Department Care Team (Late Contact Info) Description 03/02/2023 Refill [facility] [address] [place] [phone] Karely Patiño MD [address] [place] [address] [phone] Social History Tobacco Use Types Packs/Day Years [...] Visit [facility] [address] [place] [address] [phone] Wale, MD Nitin [address] [place] [phone] documented as of this encounter Visit Diagnoses Not on filedocumented in this encounter Care Teams Hospice Clinical Supervisor Relationship Specialty Start Date End Date Name, MD Nitin [address] [place] [address] PCP - General Family Medicine 08/26/17 [facility] 09/01/24 documented as of this encounter
--- OUTSIDE RECORDS SUMMARY | 2025-03-27 03:02 | XMS_ITS | Encounter Summary ---
Author Organization [email or web address] Address [address] [facility] [address] [place] [address] Care Team Providers Care Clinical Biostatistician Name Role Phone Name, Nitin PIKE Primary Care Provider [phone] Reason for Visit * Reason Onset Date Comments FYI 08/11/2024 Encounter Details Date Type Department Care Team ([facility] st Contact Info) Description 08/11/2024 Telephone [facility] [address] [place], [place] [phone] Name, MD Nitin [address] [place] [address] FYI Social History Tobacco Use Types Packs/Day [...] any questions or concerns contact Darryl at [phone] documented in this encounter Plan of Treatment Upcoming Encounters Date Type Department Care Team ([facility] st Contact Info) Description 04/29/2025 10:00 AM EDT Office Visit [facility] [address] [place] [address] Name, MD Nitin [address] [place] [address] documented as of this encounter Visit Diagnoses Not on filedocumented in this encounter Additional Health Concerns Assessment Noted Time PHQ-9 Depression Total Score: 6 02/13/20 24 9:14 AM EDT documented as of this encounter Care Teams Clinical Biostatistician Relationship Specialty Start Date End Date Name, MD Nitin [address] [place] [address] PCP - General Family Medicine 08/26/17 [facility] 09/01/24 documented as of this encounter
--- OUTSIDE RECORDS SUMMARY | 2025-03-27 03:02 | XMS_ITS | Clinical Summary ---
Author Organization [employer] Address [address] [place] [address] [address] [place] [address] Care Team Providers Care Flight Information Expediter Name Role Phone Name, Nitin PIKE Primary Care Provider [phone] Allergies Active Allergy Reactions Criticality Noted Date [...] BY MOUTH TWICE DAILY NEEDED FOR CONSTIPATION 12/06/19 23 Active neomycin-polymy ludwig-hydrocortis one (Cortisporin) otic solution USE 5 DROPS IN THE LEFT EAR TWICE DAILY 01/23/20 23 Active zolpidem (Ambien) 5 MG tablet Take 5 mg by mouth if needed at bedtime. 01/28/20 23 Active loratadine (Claritin) 10 MG tablet TAKE 1 TABLET BY MOUTH EVERY DAY 90 tablet 1 04/24/20 23 Active ofloxacin (Floxin) 0.3 % otic solutionIndicat ions:Recurrent acute serous otitis media of left ear INSTILL 5 DROPS INTO THE LEFT EAR 2 TIMES A DAY FOR 7 DAYS 10 mL 08/01/20 23 Active Blood Pressure Monitoring (3 Series BP Monitor/Upper Arm) device 1 Units in the morning. 1 each 02/11/20 24 Active mirtazapine (Remeron) 45 MG tabletIndicatio ns:Depressive disorder TAKE 1 TABLET BY MOUTH AT BEDTIME 30 tablet 2 03/10/20 24 Active hydrocortisone 2.5 % creamIndication s:Rash Apply topically 2 times daily. 30 g 1 03/19/20 24 Active phenylephrine 0.25% (Hemorrhoidal) 0.25-14-74.9 % ointment APPLY RECTALLY TWICE DAILY NEEDED FOR HEMORRHOIDS 57 g 2 03/22/20 24 Active traZODone (Desyrel) 50 MG tablet Take 1 tablet (50 mg) by mouth if needed at bedtime for sleep. 30 tablet 06/14/20 24 Active ipratropium (Atrovent) 0.03 % nasal spray Administer 2 sprays into each nostril every 12 (twelve) hours. 30 mL 2 07/27/20 24 2024 Active clonazePAM (KlonoPIN) 0.5 MG tablet TOME MITESH TABLETA POR V A ORAL RIZWAN VECES AL D A 08/13/20 24 Active gabapentin (Neurontin) 100 MG capsule TOME 1 C PSULA POR V A ORAL RIZWAN VECES AL D A 08/10/20 24 Active azithromycin (Zithromax Z-Alirio) 250 MG tablet Take 2 tabs day 1 and then 1 tab daily to finish 6 tablet 08/30/20 24 Active Acetaminophen Extra Strength 500 MG tabletIndicatio ns:Chronic bilateral low back pain without sciatica TAKE 1 TABLET BY MOUTH EVERY 8 HOURS NEEDED FOR PAIN (PARAGUAYAN LABEL) 90 tablet 09/02/20 24 Active ammonium lactate (Lac-Hydrin) 12 % lotion APPLY TOPICALLY TWICE DAILY IN THE MORNING AND AT BEDTIME FOR DRY SKIN 09/02/20 24 Active Bisacodyl EC 5 MG EC tablet TAKE 1 TABLET BY MOUTH EVERY DAY NEEDED FOR CONSTIPATION. DO NOT BREAK, CRUSH, DISSOLVE OR CHEW 30 tablet 3 10/29/20 24 Active polyethylene glycol, PEG, 3350 (GaviLAX) 17 GM/SCOOP powder MIX 17G (1 CAPFUL) IN 8 OUNCES OF WATER AND TAKE BY MOUTH TWICE A DAY 238 g 11 10/29/20 24 Active sertraline (Zoloft) 100 MG tablet Take 100 mg by mouth in the morning. 10/25/20 24 Active Multiple Vitamin (Multivitamin) tablet TAKE 1 TABLET BY MOUTH EVERY MORNING 90 tablet 3 11/08/20 24 Active rosuvastatin (Crestor) 20 MG tablet TAKE 1 TABLET BY MOUTH EVERY EVENING 90 tablet 3 11/08/20 24 Active zolpidem (Ambien) 5 MG tabletIndicatio ns:Primary insomnia Take 1 tablet (5 mg) by mouth if needed at bedtime for sleep for up to 7 days. 7 tablet 11/12/19 25 Active Aspirin Adult Low Strength 81 MG EC tabletIndicatio ns:Prediabetes TAKE 1 TABLET BY MOUTH EVERY MORNING 90 tablet 1 12/28/19 25 Active amLODIPine (Norvasc) 10 MG tabletIndicatio ns:Hypertension , unspecified type TAKE 1 TABLET BY MOUTH EVERY MORNING 90 tablet 1 01/25/20 25 Active linaCLOtide (Linzess) 145 MCG capsuleIndicati ons:Chronic constipation Do not crush or chew.TAKE 1 CAPSULE BY MOUTH EVERY DAY BEFORE BREAKFAST, DO NOT BREAK, CRUSH, DISSOLVE OR CHEW 30 capsule 02/03/20 25 Active meclizine (Antivert) 25 MG tabletIndicatio ns:Vertigo TAKE 1 TABLET BY MOUTH EVERY DAY NEEDED 30 tablet 02/03/20 25 Active hydrOXYzine pamoate (Vistaril) 50 MG capsuleIndicati ons:Generalized anxiety disorder with panic attacks TAKE 1 CAPSULE BY MOUTH EVERY 8 HOURS NEEDED FOR ANXIETY 30 capsule 02/12/20 25 Active omeprazole (PriLOSEC) [address] capsuleIndicati ons:Heartburn TAKE 1 CAPSULE BY MOUTH EVERY MORNING 1 HOUR BEFORE BREAKFAST 90 capsule 1 02/15/20 25 Active gabapentin (Neurontin) 100 MG capsule Take 1 capsule (100 mg) by mouth 2 times daily for 1 day. 2 capsule 02/15/20 25 Active fluticasone (Flonase Allergy Relief) 50 MCG/ACT nasal sprayIndication s:Allergic rhinitis, unspecified seasonality, unspecified trigger Administer 1-2 sprays into each nostril Once per day. 16 g 1 02/23/20 25 Active Ferrous Sulfate (iron) 325 (65 Fe) MG tablet TAKE 1 TABLET BY MOUTH EVERY MORNING WITH FOOD 30 tablet 03/17/20 25 Active cholecalciferol (Vitamin D-3) 25 MCG tabletIndicatio ns:Vitamin D deficiency TAKE 1 TABLET BY MOUTH TWICE DAILY IN THE MORNING AND IN THE EVENING 60 tablet 03/17/20 25 Active Ferrous Sulfate (iron) 325 (65 Fe) MG tablet TAKE 1 TABLET BY MOUTH EVERY MORNING WITH FOOD 30 tablet 02/15/20 25 2024 Discontinued cholecalciferol (Vitamin D-3) 25 MCG tabletIndicatio ns:Vitamin D deficiency TAKE 1 TABLET BY MOUTH TWICE DAILY IN THE MORNING AND IN THE EVENING 60 tablet 02/24/20 25 2024 Discontinued Active Problems Problem Noted Date [...] it calms her down. I called [facility] pharmacy to attempt a med rec they instructed me that she is on med box and one week at a time prescriptions because she would break into her med boxes to take more Ambien or xanax. She is being seen by Izzy Perea at [facility]. He is aware of her behavior and is managing her on one week prescriptions at a time. I informed Noeren that I could not change her medications because she has a psychiatrist that is working closely with her. She has an upcoming appointment with her psychiatrist in April. I informed her that if she needed to see him sooner she would need to call and make a sooner appointment. After she left I received a call from the [facility] pharmacy instructing me that she was [...] Type Department Care Team Description 03/16/2025 Refill [facility] [address] [place] [address] Nitin Echevarria MD Vitamin D deficiency 03/15/[address] [address] Lyric Anderson [place] returning call back 03/14/2025 Telephone [facility] [address] [place] [address] Nitin Echevarria MD Call Back Request 03/07/2025 Telephone [facility] [address] [place] [address] Nitin Echevarria MD 02/23/2025 Refill [facility] [address] [address] Nitin Echevarria MD Vitamin D deficiency 02/22/2025 8:40 AM EDT [facility] [address] [address] Zechariah Cheung MD Chronic rhinitis (Primary Dx); Tinnitus of both ears; Chronic left ear pain; Allergic rhinitis, unspecified seasonality, unspecified trigger 02/22/2025 Travel 02/14/2025 9:00 AM EDT Office Visit [facility] [address] [address] Delfina Romero MD 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); Viral upper respiratory tract infection 02/14/2025 Travel 02/14/2025 Refill [facility] [address] [place] [address] Nitin Echevarria MD Heartburn 02/14/2025 Orders Only GENERIC EXTERNAL DATA DEPARTMENT Provider, Generic External Data 02/11/2025 Refill [facility] [address] [place] [address] Nitin Echevarria MD Generalized anxiety disorder with panic attacks 02/07/2025 Orders Only GENERIC EXTERNAL DATA DEPARTMENT Provider, Generic External Data 02/06/2025 Orders Only GENERIC EXTERNAL DATA DEPARTMENT Provider, Generic External Data 02/02/2025 Refill [facility] [address] [place] [address] Nitin Echevarria MD Chronic constipation; Vertigo 02/01/2025 Refill [facility] [address] [place] [address] Nitin Echevarria MD Generalized anxiety disorder with panic attacks 01/31/2025 9:20 AM EDT Office Visit [facility] [address] [place] [address] Karely Patiño MD Impacted cerumen of left ear (Primary Dx) 01/24/2025 Refill [facility] [address] [place] [address] Nitin Echevarria MD Generalized anxiety disorder with panic attacks; Hypertension, unspecified type 01/10/2025 11:00 AM EST Office Visit [address] [address] Nitin Echevarria MD Generalized anxiety disorder with panic attacks (Primary Dx); Cerumen debris on tympanic membrane of both ears 01/10/2025 Travel 01/09/2025 Refill [facility] [address] [place] [phone] Nitin Echevarria MD Hypertension, unspecified type 01/05/2025 Telephone [facility] [address] [place] [address] Nitin Echevarria MD chartprep 01/03/2025 Refill [facility] [address] [place] [address] Nitin Echevarria MD Vertigo; Vitamin D deficiency from Last 3 Months Immunizations Immunization Administration Dates Next Due INFLUENZA VACCINE QUADRIVALE [...] Frequency of Binge Drinking Not on file 0803/2024 Score 0 06/14/2024 Depression Answer Date Recorded [...] EDT Office Visit [facility] [address] [facility] [place] [address] Name, MD Nitin [address] [place] [address] Health Maintenance Due Date Last Done Comments Depression Screening 02/12/2025 02/13/2024, 02/13/20 COVID-19 Vaccine ( season) 2025 08/16/2024, 08/22/2022, 08/22/2022, Additional history exists Alcohol/Substance Use Screening 06/14/2025 06/14/2024 SDOH Screening [...] Aged 60 years or older Completed 12/26/2023 Influenza Vaccine Completed 08/16/2024, , [...] NOW Rapid Molecular) (02/22/2025 8:58 AM EDT) Pathologist [facility] Influenza B Negative Negative, Indeterminate [facility] Swab 02/22/2025 8:58 AM EDT us Zechariah Cheung MD POINT OF CARE TEST ENTER/EDIT OR DERABLES Final Result Performing Organization Address [facility] Co de Phone Number [facility] [address] [place] [phone] * Influenza A (ID NOW Rapid Molecular) (02/22/2025 8:58 AM EDT) [facility] Influenza A Negative Negative, Indeterminate [facility] Swab 02/22/2025 8:58 AM EDT us Zechariah Cheung MD POINT OF CARE TEST ENTER/EDIT OR DERABLES Final Result Performing Organization Address [facility]/ZIP Co de Phone Number [facility] [address] [place] [phone] * POCT Rapid COVID Ag (02/22/2025 8:58 AM EDT) Rapid COVID Ag Negative [facility] Swab 02/22/2025 8:58 AM EDT us Zechariah Cheung MD POINT OF CARE TEST ENTER/EDIT OR DERABLES Final Result Performing Organization Address [facility] Co de Phone Number [facility] [address] [place] [phone] * POCT rapid strep A manually resulted (02/22/2025 8:58 AM EDT) Rapid Strep A Screen Negative Negative, None Detected [facility] Swab 02/22/2025 8:58 AM EDT Zechariah Cheung MD POINT OF CARE TEST ENTER/EDIT OR DERABLES Final Result [facility] [address] [place] [phone] * XR Chest 1 View (02/14/2025 2:56 AM EDT) Anatomical Region Laterality Modality Chest Radiographic Lauren ging 02/14/2025 2:56 AM EDT Narrative 02/14/2025 2:58 AM EDT ? [facility] ?[address] ?[place] [address] ?XRay Report ? Signed ? Patient: Noreen Wing ?MR#: [id number] ? : 1945 ?Acct:[id number] ? Age/Sex: 79 / F ?ADM Date: 02/14/25 ? Loc: HO.ED ? Attending Dr: ? Ordering Physician: Generic ED Physician ?? Date of Service: 02/14/25 ?? Procedure(s): XR chest 1V ?? Accession Number(s): [id number] ? cc: Generic ED Physician; [facility] ? CLINICAL HISTORY: sob ? 1 [...] by Kenyon Hatch MD in OV> ? 02/14/25256 ? DD/ 5 ? TD/TT: 02/14/25 0256 ? Lifeguard: ? Procedure Note Ac, Image - 02/14/[address] [address] XRay Report Signed Patient: Noreen WingMR#: [id number] : 3Acct:[id number] Age/Sex: 79 / FADM Date: 02/14/25 Loc: HO.ED Attending Dr: Ordering Physician: Generic ED Physician Date of Service: 02/14/25 Procedure(s): XR chest 1V Accession Number(s): [id number] cc: Generic ED Physician; [facility] CLINICAL HISTORY: sob 1 view chest [...] in OV> 02/14/25256 DD/ 5 TD/TT: 02/14/25255 Lifeguard: us [facility] External Provider IMG XR PROCEDURES Edited Result - Final * Strep A Nucleic Acid (02/14/2025 12:10 AM EDT) [employer]NOW SERIAL# [id number] [facility] Strep A Nucleic Acid Negative Negative [facility] Comment:All test results [...] GENERAL ORDERABLES Final Result Performing Organization Address [facility] Co de Phone Number [facility] [address] [place] [phone] * SARS-CoV-2 RNA, Influenza A/B, and RSV RNA, Ql NAAT (02/14/2025 12:10 AM EDT) Influenza A PCR NEGATIVE Negative [facility] Influenza B PCR NEGATIVE Negative [facility] Resp Syncy Virus RNA Qual PCR NEGATIVE Negative [facility] SARS COV2 PCR NEGATIVE Negative [facility] Comment:All test results mus t [...] use by authorized laboratories.Testing performed on the [employer] GeneXpert utilizingreal-time RT-PCR.All SARS CoV2 and positive influenza A/B results arereported to [facility]. 02/14/2025 12:1 0 AM EDT 02/14/2025 12:13 AM EDT us Generic External Data Provider LAB MICROBIOLOGY - GENERAL ORDERABLES Final Result Performing Organization Address [facility] Co de Phone Number [facility] [address] [place] [phone] * XR KUB and Upright 2 Views (02/07/2025 12:53 AM EDT) Anatomical Region Laterality Modality Radiographic Lauren ging 02/07/2025 12:5 3 AM EDT Narrative 02/07/2025 12:55 AM EDT ? [facility] ?[address] ?[place] [address] ?XRay Report ? Signed ? Patient: Wing,Noreen ?MR#: [id number] ? : 1945 ?Acct:[id number] ? Age/Sex: 79 / F ?ADM Date: 02/06/25 ? Loc: HO.ED ? Attending Dr: ? Ordering Physician: Jeanne Shen ?? Date of Service: 02/07/25 ?? Procedure(s): XR KUB ?? Accession Number(s): [id number] ? cc: Jeanne Shen; [facility] ? CLINICAL HISTORY: pain ? 1 [...] ? Signed By: ?<Electronically signed by Jonathon Moo, MD in OV> ?02/07/25 0054 ? DD/ 0053 ? TD/TT: 02/07/25 0053 ? Lifeguard: ? Procedure Note Ac, Dale - 02/07/2025 [place] [address] XRay Report Signed Patient: Noreen WingMR#: [id number] : 3Acct:[id number] Age/Sex: 79 / FADM Date: 02/06/25 Loc: HO.ED Attending Dr: Ordering Physician: Jeanne Shen Date of Service: 02/07/25 Procedure(s): XR KUB Accession Number(s): [id number] cc: Jeanne Shen; [facility] CLINICAL HISTORY: pain 1 view abdomen Comparison: [...] MD in OV> 02/07/2553 DD/ TD/TT: 02/07/2552 Lifeguard: [facility] External Provider IMG XR PROCEDURES Edited Result - Final * Culture, Urine, Routine (02/07/2025 12:00 AM EDT) Urine Urine specimen obtained by clean catch procedure / Unknown 02/07/2025 02/07/2025 Comment:UACC Narrative [facility] - 02/08/2025 8:36 AM EDT Urine Culture Report Result Urine Culture 50,000 to 100,000 cfu/ml Urine Culture Mixed bacterial jann characteristic of Urine Culture urogenital contamination. Specimen Source: Urine clean catch Generic External Data Provider LAB MICROBIOLOGY - GENERAL ORDERABLES Final Result [facility] [address] [place] [phone] * (ABNORMAL) Urinalysis, Complete, with Reflex to Culture (02/06/2025 11:50 PM EDT) Color Urine Yellow [facility] Appearance Urine Hazy [facility] PH 6.0 5.0 - 9.0 [facility] Glucose Urine UA Negative Negative mg/dL [facility] Urine Blood Trace Negative [facility] Specific [place] - Urine 1.020 1.005 - 1.025 [facility] Urine Protein Negative Neg-Trace mg/dL [facility] Urine Ketones Negative Negative mg/dL [facility] Nitrite Urine Negative Negative [facility] Leukocyte Esterase Urine Moderate (2+)(A) Negative [facility] RBC Urine 0-2 0 - 2 /HPF [facility] Urine WBC 11-20(A) 0 - 5 /HPF [facility] Urine Squamous Epithelial Cell 6-10 0 - 2 /HPF [facility] Urine Bacteria 2+ None Seen [facility] Hyaline Casts, Urine 0-2 0 - 2 /LPF [facility] 02/06/2025 11:5 0 PM EDT 02/06/2025 11:56 PM EDT Narrative [facility] - 02/07/2025 12:13 AM EDT Urine, Clean Catch Generic External Data Provider LAB URINE ORDERAB LES Final Result [facility] [address] [place] [phone] * POCT Glucose (01/10/2025 11:03 AM [...] ?? Jack RAYO et al. JITENDRA. 2013;310(19): 1797-3712 ?? (http://education.Competitor/faq/GBB595) Non-HDL Cholesterol 88 <130 mg/dL (calc) CONVERTED [...] Most Recently Relevant to Health Maintenance Insurance [address] [place] [address] [employer] OPT[employer] (HMO D-SNP) [facility] [employer] OPTIONS (HMO D-SNP) Care Teams Flight Information Expediter Relationship Specialty Start Date End Date Name, MD Nitin [address] [place] [phone] PCP - General Family Medicine 08/26/17 [facility] 09/01/24
--- OUTSIDE RECORDS SUMMARY | 2025-03-27 03:02 | XMS_ITS | Encounter Summary ---
Author Organization [employer] Address [address] [facility] [place] [address] [place] [address] Care Team Providers Care Print Developer Automatic Name Role Phone Name, Nitin PIKE Primary Care Provider [phone] Reason for Visit * Reason Onset Date Comments ER Follow-up 05/04/2024 Encounter Details Date Type Department Care Team ([facility] st Contact Info) Description 05/04/2024 Telephone [facility] [address] [place], [place] [phone] Name, MD Nitin [address] [place] [address] ER Follow-up Social History Tobacco Use Types [...] 11:01 AM EDT T/C to pt. Through [email or web address] id - [id number] for below message, No answer. LVM to call back [phone] . * Telephone Encounter - Adithya Solorzano - 05/04/2024 9:35 AM EDT Noreen with [facility] calling to report ED visit on : Date: 04/28 Hospital: [facility] Seen for: UTI, Nausea, Rash. Noreen advised will be forwarding message to team nurses. Please contact pt at [phone]. documented in this encounter Plan of Treatment Upcoming Encounters Date Type Department Care Team (Late st Contact Info) Description 04/29/2025 10:00 AM EDT Office Visit [facility] [address] [place] [address] Name, MD Nitin [address] [place] [address] documented as of this encounter Visit Diagnoses Not on filedocumented in this encounter Additional Health Concerns Assessment Noted Time PHQ-9 Depression Total Score: 6 02/13/20 9:14 AM EDT documented as of this encounter Care Teams Print Developer Automatic Relationship Specialty Start Date End Date Name, MD Nitin [address] [place] [phone] PCP - General Family Medicine 08/26/17 [facility] 09/01/24 documented as of this encounter
--- OUTSIDE RECORDS SUMMARY | 2025-03-27 03:02 | XMS_ITS | Encounter Summary ---
Author Organization [employer] Address [address] [facility] [address] [place] [address] Care Team Providers Care Belt Sander Stone Name Role Phone Name, Nitin PIKE Primary Care Provider [phone] Encounter Details Date Type Department Care Team ([facility] Contact Info) Description 08/08/2023 Telephone [facility] [address] [place] [address] [phone] Name, MD Nitin [address] [place] [address] [phone] Social History Tobacco Use Types Packs/Day Years [...] Description 04/29/2025 10:00 AM EDT Office Visit [facility] [address] [place] [phone] Name, MD Nitin [address] [place] [phone] documented as of this encounter Visit Diagnoses Not on filedocumented in this encounter Additional Health Concerns Assessment Noted Time PHQ-9 Depression Total Score: 12 023 9:37 AM EDT documented as of this encounter Care Teams Belt Sander Stone Relationship Specialty Start Date End Date Name, MD Nitin [address] [place] [address] PCP - General Family Medicine 08/26/17 [facility] 09/01/24 documented as of this encounter
--- OUTSIDE RECORDS SUMMARY | 2025-03-27 03:02 | XMS_ITS | Data Portability ---
Author Organization [employer] Address [address] [place] [address] Care Team Providers Care Medicine Teacher Name Role Phone HIM CCA Primary Care [...] Last Updated DateTime 18 /min 74 /min 40569.9 28 g 98 % 98 % 100 [degF] 130 mm[Hg] 66 mm[Hg] Not Available Donate Your DesktopEDNow - Construct 15:33:18 Social History None recorded. Functional Status None recorded. Mental Status None recorded. Family History Nothing Reported. Medical History No medical history recorded. Gynecological HistoryNo gynecological history recorded. 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 She called today because she insists on having the catheter removed. It was removed by the custom garment designer with the understand ing that if she can't void, she will need to go the the ER. The patient agreed with this plan. [id number] Rohit Benton MD Main - [address] [phone] 02/06/2024 15:33:16 02/09/2024 18:20:42 Chronic retention of urine [id number] R33.8 Has bunn catheter which was recently [...] [employer] Member ID Guarantor Name 02/09/2024 1 [facility] - DOS ON OR AFTER 2023 - DUAL ELIGIBLE - LONG TERM OPTIONS AND ONE CARE (MEDICARE REPLACEMENT/ADV ANTAGE - HMO) Noreen Wing [id number] Noreen Wing Notes Date Note Type Note Provider Name and Address Organization Details Recorded Time 01/31/2024 text/html CRC Nurse Triage Notes (Joana Dominique): Reason For Request: Bunn catheter malfunction/painful Chief Complaints: UTI/Pyelonephritis, Equipment-Related Allergies: No Known Comments: Gibraltarian speaking member who denies any PMH, denies [...] Nader KAYE Verified name//address Epifanio Mcintyre MD [address] [place] [address],[address], [place], [address], [employer] 01/31/2024 19:05:57 02/06/2024 text/html HPI: Member asked for HV tomorrow after 10 AM if possible. Treated at the [facility] today, for F/u leaking, stated is [...] son Jame Wing. Member is 78 y/o Gibraltarian speaking female who resides on [facility] with her son. Member has multiple [...] sees her BH counselor weekly and Prescriber LOCK TENDER CHIEF OPERATOR [place] monthly if needed or every 2-3 months, .................... .................... .................... .................... .................... .................... .................... . CRC Nurse Triage Notes (Zafar Irving): Comments: Reviewed HPI .................... .................... .................... .................... .................... .................... .................... . Case Supervisor Note From [place]: Pt sts doesn? [...] Vitals stable. Urine clear and light yellow. [facility] contacted and advised pt to rest and advised to make sure she goes to appt Friday. Pt son was used as vacuum metalizer operator. Pt education on signs indicating the ER. Case Supervisor Allergies: Clindamycin .................... .................... .................... .................... .................... .................... .................... . Disposition: Fulfilled Rohit Benton MD [address] [facility],[address], [place], [address], [employer] 02/06/2024 17:58:19 OBGyn Episode No OBEpisode recorded.
--- OUTSIDE RECORDS SUMMARY | 2025-03-27 03:02 | XMS_ITS | Encounter Summary ---
Author Organization [employer] Address [address] [facility] 7[address] [place] [address] Care Team Providers Care Boarder Steam Name Role Phone Name, Nitin PIKE Primary Care Provider [phone] Reason for Visit * Reason Onset Date Comments Order(s) 12/09/2023 Encounter Details Date Type Department Care Team ([facility] st Contact Info) Description 12/09/2023 Telephone [facility] 230 [place], [place] [phone] Name, MD Nitin 230 [place], [place] [phone] Order(s) Social History Tobacco Use Types Packs/Day [...] orders. If any questions please contact Noreen [phone]. documented in this encounter Plan of Treatment Upcoming Encounters Date Type Department Care Team (Late st Contact Info) Description 04/29/2025 10:00 AM EDT Office Visit [facility] [address] [place] [address] Name, MD Nitin 230 [place] [address] documented as of this encounter Visit Diagnoses Not on filedocumented in this encounter Additional Health Concerns Assessment Noted Time PHQ-9 Depression Total Score: 12 023 9:37 AM EDT documented as of this encounter Care Teams Boarder Steam Relationship Specialty Start Date End Date Name, MD Nitin [address] [place] [address] PCP - General Family Medicine 08/26/17 [facility] 09/01/24 documented as of this encounter
--- OUTSIDE RECORDS SUMMARY | 2025-03-27 03:02 | XMS_ITS | Encounter Summary ---
Author Organization [employer] Address [address] [facility] 7[place] [address] Care Team Providers Care Aircraft Electrician Name Role Phone Name, Nitin PIKE Primary Care Provider [phone] Reason for Visit * Reason Onset Date Comments ER Follow-up 05/31/2024 Encounter Details Date Type Department Care Team ([facility] st Contact Info) Description 05/31/2024 Telephone [facility] MED[facility]INE 230 [place], [place] [phone] Name, MD Nitin 230 [place] [address] ER Follow-up Social History Tobacco Use Types [...] 05/31/2024 1:36 PM EDT T/C to Pat ([facility]) [phone] for below message, no answer. LVM to call back on [phone]. * Telephone Encounter - Melany Santos RN - 05/31/2024 1:32 PM EDT DAVID T/C to pt. Through [email or web address] id - [id number] for below message, pt. Had recent fall and ED visit at [facility]. RN will request GRACE piedra from [facility]. Pt. Is doing good, states I am [...] ED visit on : Date: 05/26 Hospital: [facility] Seen for: Fall, Back Pain Pat stated [...] [facility] MEDICINE 230 [place] [address] Name, MD Nitin [address] [place] [address] documented as of this encounter Visit Diagnoses Not on filedocumented in this encounter Additional Health Concerns Assessment Noted Time PHQ-9 Depression Total Score: 6 02/13/20 24 9:14 AM EDT documented as of this encounter Care Teams Aircraft Electrician Relationship Specialty Start Date End Date Name, MD Nitin [address] [place] [address] PCP - General Family Medicine 08/26/17 [facility] 09/01/24 documented as of this encounter
--- OUTSIDE RECORDS SUMMARY | 2025-03-27 03:02 | XMS_ITS | Clinical Summary ---
Author Organization [facility] Address [address] [place] [address] Phone Care Team Providers Care Document Control Associate Name Role Phone Physician, No Pcp Primary [...] mmol/L LAB CHEMISTRY METHOD 09/22/2024 3:[address] [facility] Potassium 4.6 3.5 - 5.5 mmol/L LAB CHEMISTRY METHOD 09/22/2024 3:[address] [facility] Chloride 98 96 - 110 mmol/L LAB CHEMISTRY METHOD 09/22/2024 3:[address] [facility] CO2 28 21 - 32 mmol/L LAB CHEMISTRY METHOD 09/22/2024 3:[address] [facility] Anion Gap 6 3 - 11 LAB CHEMISTRY METHOD 09/22/2024 3:[address] [facility] Glucose 119(H) 70 - 100 mg/dL LAB CHEMISTRY METHOD 09/22/2024 3:[address] [facility] BUN 25 5 - 25 mg/dL LAB CHEMISTRY METHOD 09/22/2024 3:[address] [facility] Creatinine 1.18(H) 0.50 - 1.10 mg/dL LAB CHEMISTRY METHOD 09/22/2024 3:[address] [facility] eGFR 47(L) >=60 mL/min/1. 73m2 LAB CHEMISTRY METHOD 09/22/2024 3:[address] [facility] Comment:Calculation based on the??Chronic Kidney Disease Epidemiology Collaboration (CKD-EPI) equation refit??without adjustment for race. BUN/Creatinine Ratio 21.2 LAB CHEMISTRY METHOD 09/22/2024 3:[address] [facility] Calcium 9.3 8.5 - 10.5 mg/dL LAB CHEMISTRY METHOD 09/22/2024 3:[address] [facility] AST (SGOT) 37 10 - 42 unit/L LAB CHEMISTRY METHOD 09/22/2024 3:[address] [facility] ALT (SGPT) 25 10 - 60 unit/L LAB CHEMISTRY METHOD 09/22/2024 3:[address] [facility] Alkaline Phosphatase 77 42 - 121 unit/L LAB CHEMISTRY METHOD 09/22/2024 3:[address] [facility] Total Protein 8.0 6.0 - [...] Resul t [facility] [address] [place] [address], from Last 3 Months or Most Recently Relevant to Health Maintenance Insurance [facility] Member Subscriber Plan / Payer (Ef fective 2021-Present) Name:WingNoreen garcia Relation to Subscriber:Self Name:WingNoreen garcia Payer ID:[id number] Group ID:[id number] Type:Not on file Address: [facility] [address] [address] Care Teams Document Control Associate Relationship Specialty Start Date End Date Physician, No Pcp PCP - General 09/22/24
--- OUTSIDE RECORDS SUMMARY | 2025-03-27 03:02 | XMS_ITS | Encounter Summary ---
Author Organization [employer] Address [address] [facility] 7[address] [place] [address] Care Team Providers Care Land Development Project Manager Name Role Phone Name, Nitin PIKE Primary Care Provider [phone] Reason for Visit * Reason Comments Med Refill Encounter Details Date Type Department Care Team ([facility] st Contact Info) Description 04/01/[address] [facility] MEDICINE [address] [place], [place] [phone] Name, MD Nitin [address] [place], [place] [phone] Rash Social History Tobacco Use Types Packs/Day [...] [facility] MEDICINE [address] [place] [address] Name, MD Nitin [address] [place] [address] documented as of this encounter Visit Diagnoses Diagnosis Rash Rash and other nonspecific skin eruption documented in this encounter Additional Health Concerns Assessment Noted Time PHQ-9 Depression Total Score: 6 02/13/20 9:14 AM EDT documented as of this encounter Care Teams Land Development Project Manager Relationship Specialty Start Date End Date NameNitin MD [address] [place] [address] PCP - General Family Medicine 08/26/17 [facility] 09/01/24 documented as of this encounter
--- OUTSIDE RECORDS SUMMARY | 2025-03-27 03:02 | XMS_ITS | Encounter Summary ---
Author Organization [employer] Address [address] [facility] 7[address] [place] [address] Care Team Providers Care Food Service Employee Name Role Phone Name, Nitin PIKE Primary Care Provider [phone] Reason for Visit * Reason Onset Date Comments Verbal Orders 12/15/2023 Encounter Details Date Type Department Care Team ([facility] st Contact Info) Description 12/15/2023 Telephone [facility] 230 [place], [place] [phone] Name, MD Nitin 230 [place] [address] Verbal Orders Social History Tobacco Use Types [...] 12:03 PM EST Tc from [facility] with [facility] requesting verbal order to see pt 2 times a week for 4 weeks for Occupational Therapy, please contact [facility] at [phone] documented in this encounter Plan of Treatment Upcoming Encounters Date Type Department Care Team (Late st Contact Info) Description 04/29/2025 10:00 AM EDT Office Visit [facility] MED[facility]INE [address] [place] [address] Name, MD Nitin 230 [place] [address] documented as of this encounter Visit Diagnoses Not on filedocumented in this encounter Additional Health Concerns Assessment Noted Time PHQ-9 Depression Total Score: 12 023 9:37 AM EDT documented as of this encounter Care Teams Food Service Employee Relationship Specialty Start Date End Date Name, MD Nitin 230 [place] [address] PCP - General Family Medicine 08/26/17 [facility] 09/01/24 documented as of this encounter
--- OUTSIDE RECORDS SUMMARY | 2025-03-27 03:02 | XMS_ITS | Encounter Summary ---
Author Organization [employer] Address [address] [facility] 7[address] [place] [address] Care Team Providers Care Polymer Tester Name Role Phone Name, Nitin PIKE Primary Care Provider [phone] Reason for Visit * Reason Onset Date Comments Results 08/29/2023 Encounter Details Date Type Department Care Team ([facility] st Contact Info) Description 08/29/2023 Telephone [facility] MEDICINE 230 [place], [place] [phone] Name, MD Nitin 230 [place] [address] Results Social History Tobacco Use Types Packs/Day [...] 11:51 AM EDT Pt evaluated in [facility] today and is scheduled with pcp 09/03/23. * Telephone Encounter - Janette Huitron - 08/29/2023 4:06 PM EDT Tc from pt requesting a call in regards to urine results. Please contact pt at [phone] (Yakut) documented in this encounter Plan of Treatment Upcoming Encounters Date Type Department Care Team (Late st Contact Info) Description 04/29/2025 10:00 AM EDT Office Visit [facility] MED[facility]INE [address] [place] [address] Name, MD Nitin [address] [place] [address] documented as of this encounter Visit Diagnoses Not on filedocumented in this encounter Additional Health Concerns Assessment Noted Time PHQ-9 Depression Total Score: 12 023 9:37 AM EDT documented as of this encounter Care Teams Polymer Tester Relationship Specialty Start Date End Date Name, MD Nitin [address] [place] [address] PCP - General Family Medicine 08/26/17 [facility] 09/01/24 documented as of this encounter
--- OUTSIDE RECORDS SUMMARY | 2025-03-27 03:02 | XMS_ITS | Encounter Summary ---
Author Organization [employer] Address [address] [facility] 7[address] [place] [address] Care Team Providers Care Voice Data Communications Engineer Name Role Phone Name, Nitin PIKE Primary Care Provider [phone] Reason for Visit * Reason Onset Date Comments Durable Medical Equipment 12/09/2023 Encounter Details Date Type Department Care Team ([facility] st Contact Info) Description 12/09/2023 Telephone [facility] MEDICINE 230 [place], [place] [phone] Name, MD Nitin 230 [place] [address] Durable Medical Equipment Social History Tobacco Use [...] AM EST DME rx faxed to [facility] as requested. RN will consult with S nurse and provide referral. * Telephone Encounter - Fozia Jacob RN - 12/09/2023 4:58 PM EST Call returned to [facility] at [facility] [phone] ext. [phone]. [facility] states that [facility] attempted to provide PT at home but pt refused. [facility] pt is requesting outpatient PT. [facility] pt is seeing a counselor more regularly and has agreed to VNA referral. Reports pt has had 3 falls in the past 2 months. [facility] states [facility] no longer has visiting nurses. [facility] recommends [facility] or [facility] for VNA referral. [facility] also requesting DME rx for rollator walker and a straight cane. Requests that DME rx be faxed to [phone]. Advised requests will be sent to pcp. * Telephone Encounter - Adithya Solorzano - 12/09/2023 4:25 PM EST Tc from [facility] requesting DME: Rollator walker . documented in this encounter Plan of Treatment Upcoming Encounters Date Type Department Care Team (Late st Contact Info) Description 04/29/2025 10:00 AM EDT Office Visit [facility] [address] [facility] [place] [address] Name, MD Nitin [address] [place] [address] documented as of this encounter Visit Diagnoses Not on filedocumented in this encounter Additional Health Concerns Assessment Noted Time PHQ-9 Depression Total Score: 12 023 9:37 AM EDT documented as of this encounter Care Teams Voice Data Communications Engineer Relationship Specialty Start Date End Date Name, MD Nitin [facility] [place] [address] PCP - General Family Medicine 08/26/17 [facility] 09/01/24 documented as of this encounter
--- OUTSIDE RECORDS SUMMARY | 2025-03-27 03:02 | XMS_ITS | Encounter Summary ---
Author Organization [employer] Address [address] [facility] 7[address] [place] [address] Care Team Providers Care Property Administrator Name Role Phone Name, Nitin PIKE Primary Care Provider [phone] Reason for Visit * Reason Comments Med Refill Encounter Details Date Type Department Care Team (Late st Contact Info) Description 08/16/2024 Refill [facility]S [address] [place], [place] [phone] Name, MD Nitin [address] [place] [address] Heartburn Social History Tobacco Use Types Packs/Day [...] Description 04/29/2025 10:00 AM EDT Office Visit [facility] MEDICINE [address] [place] [address] NameNitin MD [address] [place] [address] documented as of this encounter Visit Diagnoses Diagnosis Heartburn documented in this encounter Additional Health Concerns Assessment Noted Time PHQ-9 Depression Total Score: 6 02/13/20 9:14 AM EDT documented as of this encounter Care Teams Property Administrator Relationship Specialty Start Date End Date NameNitin MD [address] [place] [address] PCP - General Family Medicine 08/26/17 [facility] 09/01/24 documented as of this encounter
--- OUTSIDE RECORDS SUMMARY | 2025-03-27 03:02 | XMS_ITS | Encounter Summary ---
Author Organization [employer] Address 75 [facility] 7[address] [place] [address] Care Team Providers Care Integration Assistant Name Role Phone Name, Nitin PIKE Primary Care Provider [phone] Reason for Visit * Reason Onset Date Comments Hospital Follow-up 10/20/2024 Encounter Details Date Type Department Care Team ([facility] st Contact Info) Description 10/20/2024 Telephone [facility]ICINE 230 [place], [place] [phone] Name, MD Nitin 230 [place] [address] Hospital Follow-up Social History Tobacco Use Types [...] pt requesting a HDF appt. Hospital: [facility] Date of admission: 10/17 Discharge date: 10/19 Diagnosed: High Blood Pressure and Fever Contact pt at [phone] *Send message to [facility] Clinical Care Coordinators documented in this encounter Plan of Treatment Upcoming Encounters Date Type Department Care Team (Late st Contact Info) Description 04/29/2025 10:00 AM EDT Office Visit [facility] MEDICINE 230 [place], [place] [phone] Name, MD Nitin 230 [place] [address] documented as of this encounter Visit Diagnoses Not on filedocumented in this encounter Additional Health Concerns Assessment Noted Time PHQ-9 Depression Total Score: 6 02/13/20 24 9:14 AM EDT documented as of this encounter Care Teams Integration Assistant Relationship Specialty Start Date End Date Name, MD Nitin 230 [place] [address] PCP - General Family Medicine 08/26/17 [facility] 09/01/24 documented as of this encounter
--- OUTSIDE RECORDS SUMMARY | 2025-03-27 03:02 | XMS_ITS | Encounter Summary ---
Author Organization [employer] Address [address] [facility] [address] [place] [address] Care Team Providers Care Athletic Instructor Name Role Phone NameNitin MD Primary Care Provider [phone] Encounter Details Date Type Department Care Team ([facility] Contact Info) Description 01/06/2023 Orders Only [facility] MED & PEDS [address] [place], [place] [phone] Lisha Kelly LPN Social History Tobacco Use [...] Office Visit [facility] MEDICINE 230 [place], [place] [phone] NameNitin MD 230 [place] [address] documented as of this encounter Visit Diagnoses Not on filedocumented in this encounter Care Teams Athletic Instructor Relationship Specialty Start Date End Date NameNitin MD [address] [place] [address] PCP - General Family Medicine 08/26/17 [facility] 09/01/24 documented as of this encounter
--- OUTSIDE RECORDS SUMMARY | 2025-03-27 03:02 | XMS_ITS | Encounter Summary ---
Author Organization [employer] Address [address] [facility] [address] [place] [address] Care Team Providers Care Primary Care Sales Representative Name Role Phone Name, Nitin PIKE Primary Care Provider [phone] Reason for Visit * Reason Comments Med Refill Encounter Details Date Type Department Care Team ([facility] st Contact Info) Description 06/28/2024 Refill [facility] 230 [place], [place] [phone] Mel Anguiano FNP [address] [place] [address] Social History Tobacco Use Types Packs/Day Years [...] Description 04/29/2025 10:00 AM EDT Office Visit [facility] MEDICINE [address] [place] [address] Name, MD Nitin 230 [place] [address] documented as of this encounter Visit Diagnoses Not on filedocumented in this encounter Additional Health Concerns Assessment Noted Time PHQ-9 Depression Total Score: 6 02/13/20 9:14 AM EDT documented as of this encounter Care Teams Primary Care Sales Representative Relationship Specialty Start Date End Date Name, MD Nitin [address] [place] [address] PCP - General Family Medicine 08/26/17 [facility] 09/01/24 documented as of this encounter
--- OUTSIDE RECORDS SUMMARY | 2025-03-27 03:02 | XMS_ITS | Encounter Summary ---
Author Organization [employer] Address 75 [facility] 7[address] [place] [address] Care Team Providers Care Hiv Nurse Name Role Phone Name, Nitin PIKE Primary Care Provider [phone] Encounter Details Date Type Department Care Team ([facility] Contact Info) Description 12/17/2022 Orders Only [facility] CH[facility] MED & PEDS [address] [place], [place] [phone] Lisha Kelly LPN Social History Tobacco Use [...] Office Visit [facility] MEDICINE 230 [place] [address] Nitin Echevarria MD 230 [place] [address] documented as of this encounter Visit Diagnoses Not on filedocumented in this encounter Care Teams Hiv Nurse Relationship Specialty Start Date End Date NameNitin MD [address] [place] [address] PCP - General Family Medicine 08/26/17 [facility] 09/01/24 documented as of this encounter
--- OUTSIDE RECORDS SUMMARY | 2025-03-27 03:02 | XMS_ITS | Encounter Summary ---
Author Organization [employer] Address 75 [facility] 7[address] [place] [address] Care Team Providers Care Golf Club Weigher Name Role Phone NameNitin MD Primary Care Provider [phone] Encounter Details Date Type Department Care Team (Late st Contact Info) Description 11/06/2022 Orders Only [facility] MED & PEDS [address] [place], [place] [phone] Lisha Kelly LPN Social History Tobacco Use [...] Description 04/29/2025 10:00 AM EDT Office Visit [facility] MEDICINE 230 [place] [address] Nitin Echevarria MD 230 [place] [address] documented as of this encounter Visit Diagnoses Not on filedocumented in this encounter Care Teams Golf Club Weigher Relationship Specialty Start Date End Date Nitin Echevarria MD 230 [place] [address] PCP - General Family Medicine 08/26/17 [facility] 09/01/24 documented as of this encounter
--- OUTSIDE RECORDS SUMMARY | 2025-03-27 03:02 | XMS_ITS | Clinical Summary ---
Author Organization [facility] Facility Address [address] [address] Care Team Providers Care Oracle Erp Developer Name Role Phone Name, Nitin PIKE Primary Care Provider [phone] Allergies Active Allergy Reactions Criticality Noted Date [...] to complete this topic [place] [address] MCR ([id number]) [place] [phone] [facility] MCR ([id number]) Care Teams Oracle Erp Developer Relationship Specialty Start Date End Date Name, MD Nitin [address] [place] [address] PCP - General Internal Medicine 10/15/22
--- OUTSIDE RECORDS SUMMARY | 2025-03-27 03:02 | XMS_ITS | Encounter Summary ---
Author Organization [employer] Address 75 [facility] 7[address] [place] [address] Care Team Providers Care Convenience Recycle Center Tech Name Role Phone Name, Nitin PIKE Primary Care Provider [phone] Reason for Visit * Reason Onset Date Comments Call Back Request 03/14/2025 Encounter Details Date Type Department Care Team ([facility] st Contact Info) Description 03/14/2025 Telephone [facility] [address] [place], [place] [phone] Name, MD Nitin [address] [place] [address] Call Back Request Social History Tobacco Use [...] Description 04/29/2025 10:00 AM EDT Office Visit [facility] [address] [place] [address] Name, MD Nitin [address] [place] [address] documented as of this encounter Visit Diagnoses Not on filedocumented in this encounter Additional Health Concerns Assessment Noted Time PHQ-9 Depression Total Score: 6 02/13/20 9:14 AM EDT documented as of this encounter Care Teams Convenience Recycle Center Tech Relationship Specialty Start Date End Date Name, MD Nitin [address] [place] [address] PCP - General Family Medicine 08/26/17 [facility] 09/01/24 documented as of this encounter
--- OUTSIDE RECORDS SUMMARY | 2025-03-27 03:02 | XMS_ITS | Encounter Summary ---
Author Organization [employer] Address [address] [facility] [address] [place] [address] Care Team Providers Care Tool Designer Name Role Phone Name, Nitin PIKE Primary Care Provider [phone] Encounter Details Date Type Department Care Team ([facility] st Contact Info) Description 05/26/2023 Orders Only [facility] MEDICINE [address] [place] [address] Noreen Fox MD [address] [place] [address] Social History Tobacco Use Types Packs/Day Years [...] AM EDT documented as of this encounter Functional Status * Over the past 2 weeks, how often have you been bothered by any of the following problems? Question Answer Date of Assessment Author Patient Health Questionnaire-2 Score 4 05/11 9:37 AM EDT Renetta Solorzano * If you checked off any problems on this questionnaire so far, Question Answer Date of Assessment Author How difficult have these problems made it for you to do your work, take care of things at home, or get along with other people? Somewhat difficult 05/29/2023 9:37 AM Olive Pantoja * Over the past 2 weeks, how often have you been bothered by any of the following problems? Question Answer Date of Assessment Author Little interest or pleasure in doing things More than half the days 05/29/2023 9:37 AM Renetta Pantoja Feeling down, depressed, or hopeless More than half the days 05/29/2023 9:37 AM Renetta Pantoja Trouble falling or staying asleep, or sleeping too much More than half the days 05/29/2023 9:37 AM Renetta Pantoja Feeling tired or having little energy More than half the days 05/29/2023 9:37 AM Renetta Pantoja Poor appetite or overeating Not at all 05/29/2023 9:37 AM Olive Pantoja Feeling bad about yourself - or that you are a failure or have let yourself or your family down More than half the days 05/29/2023 9:37 AM Renetta Pantoja Trouble concentrating on things, such as reading the newspaper or watching television More than half the days 05/29/2023 9:37 AM Renetta Pantoja Moving or speaking so slowly that other people could have noticed? Or the opposite - being so fidgety or restless that you have been moving around a lot more than usual. Not at all 05/29/2023 9:37 AM Olive Pantoja Thoughts that you would be better off or hurting yourself in some way Not at all 05/29/2023 9:37 AM Ally Pantoja Patient Health Questionnaire-9 Score 12 05/29/2023 9:37 AM Elton Pantoja documented as of this encounter Plan of Treatment Upcoming Encounters Date Type Department Care Team (Late st Contact Info) Description 04/29/2025 10:00 AM EDT Office Visit [facility] MEDICINE [address] [place] [address] Name, MD Nitin [address] [place] [address] documented as of this encounter Visit Diagnoses Not on filedocumented in this encounter Care Teams Tool Designer Relationship Specialty Start Date End Date Name, [place] [address] PCP - General Family Medicine 08/26/17 [facility] 09/01/24 documented as of this encounter
[2025-03-27 03:55] VITALS: BP 127/71; PULSE 78; RESP 16; TEMP 36.6; O2SAT 96
== END 2025-03-27 04:01 | disposition home or self-care (01) ==
PROVIDERS: Emergency Provider Emergency Medicine
DX: H92.02 Otalgia, left ear (principal); H61.22 Impacted cerumen, left ear; M54.50 Low back pain, unspecified; J02.9 Acute pharyngitis, unspecified; I12.9 Hypertensive chronic kidney disease with stage 1 through stage 4 chronic kidney disease, or unspecified chronic kidney disease; N18.31 Chronic kidney disease, stage 3a; Z79.02 Long term (current) use of antithrombotics/antiplatelets; Z79.82 Long term (current) use of aspirin; Z79.899 Other long term (current) drug therapy
CPT/HCPCS: 69209; 72100; 99283; 99284

== ENCOUNTER → 2025-03-27 02:11 | Outpatient (BNV) | payer OTHER, SELFPAY | PROVIDERS: Emergency Provider Emergency Medicine; Visit Provider Radiology Neuroradiology | DX: M51.360 Other intervertebral disc degeneration, lumbar region with discogenic back pain only (principal); M47.816 Spondylosis without myelopathy or radiculopathy, lumbar region | CPT/HCPCS: 72100 ==

== ENCOUNTER 2025-03-28 00:15 | Emergency (ER) | payer OTHER, SELFPAY ==
[2025-03-28 00:48] VITALS: BP 121/61; BP 146/97; PULSE 73; PULSE 76; RESP 18; TEMP 37; O2SAT 96; BMI 27.8
--- OUTSIDE RECORDS SUMMARY | 2025-03-28 01:03 | XMS_ITS | Encounter Summary ---
Author Organization [employer] Address [address] [facility] [address] [place] [address] Care Team Providers Care Seismology Teacher Name Role Phone Name, Nitin PIKE Primary Care Provider [phone] Reason for Visit * Reason Comments Med Refill Encounter Details Date Type Department Care Team ([facility] st Contact Info) Description 04/01/2024 Refill [facility] MEDICINE [address] [place], [place] [phone] Name, MD Nitin [address] [place], [place] [phone] Rash Social History Tobacco Use Types Packs/Day [...] Description 04/29/2025 10:00 AM EDT Office Visit [facility] [address] [place] [address] Name, MD Nitin [address] [place] [address] documented as of this encounter Visit Diagnoses Diagnosis Rash Rash and other nonspecific skin eruption documented in this encounter Additional Health Concerns Assessment Noted Time PHQ-9 Depression Total Score: 6 02/13/20 9:14 AM EDT documented as of this encounter Care Teams Seismology Teacher Relationship Specialty Start Date End Date NameNitin MD [address] [place] [address] PCP - General Family Medicine 08/26/17 [facility] 09/01/24 documented as of this encounter
--- OUTSIDE RECORDS SUMMARY | 2025-03-28 01:03 | XMS_ITS | Encounter Summary ---
Author Organization [employer] Address 75 [facility] [address] [place] [address] Care Team Providers Care Greens Laborer Name Role Phone Name, Nitin PIKE Primary Care Provider [phone] Reason for Visit * Reason Comments Med Refill Encounter Details Date Type Department Care Team (Late st Contact Info) Description 01/09/2025 Refill [facility] [address] [place] [address] [phone] Name, MD Nitin [address] [place] [address] Hypertension, unspecified type Social History Tobacco Use [...] [facility] [address] [place] [address] NameNitin MD [address] [place] [address] documented as of this encounter Visit Diagnoses Diagnosis Hypertension, unspecified type documented in this encounter Additional Health Concerns Assessment Noted Time PHQ-9 Depression Total Score: 6 02/13/20 9:14 AM EDT documented as of this encounter Care Teams Greens Laborer Relationship Specialty Start Date End Date NameNitin MD [address] [place] [address] PCP - General Family Medicine 08/26/17 [facility] 09/01/24 documented as of this encounter
--- OUTSIDE RECORDS SUMMARY | 2025-03-28 01:03 | XMS_ITS | Clinical Summary ---
Author Organization [facility] Address [address] [place] [address] Phone Care Team Providers Care Clinical Documentation Manager Name Role Phone Physician, No Pcp Primary [...] mmol/L LAB CHEMISTRY METHOD 09/22/2024 3:15 AM [facility] Potassium 4.6 3.5 - 5.5 mmol/L LAB CHEMISTRY METHOD 09/22/2024 3:15 AM [facility] Chloride 98 96 - 110 mmol/L LAB CHEMISTRY METHOD 09/22/2024 3:15 AM [facility] CO2 28 21 - 32 mmol/L LAB CHEMISTRY METHOD 09/22/2024 3:15 AM [facility] Anion Gap 6 3 - 11 LAB CHEMISTRY METHOD 09/22/2024 3:15 AM [facility] Glucose 119(H) 70 - 100 mg/dL LAB CHEMISTRY METHOD 09/22/2024 3:15 AM [facility] BUN 25 5 - 25 mg/dL LAB CHEMISTRY METHOD 09/22/2024 3:15 AM [facility] Creatinine 1.18(H) 0.50 - 1.10 mg/dL LAB CHEMISTRY METHOD 09/22/2024 3:15 AM [facility] eGFR 47(L) >=60 mL/min/1. 73m2 LAB CHEMISTRY METHOD 09/22/2024 3:15 AM [facility] Comment:Calculation based on the??Chronic Kidney Disease Epidemiology Collaboration (CKD-EPI) equation refit??without adjustment for race. BUN/Creatinine Ratio 21.2 LAB CHEMISTRY METHOD 09/22/2024 3:15 AM [facility] Calcium 9.3 8.5 - 10.5 mg/dL LAB CHEMISTRY METHOD 09/22/2024 3:15 AM [facility] AST (SGOT) 37 10 - 42 unit/L LAB CHEMISTRY METHOD 09/22/2024 3:15 AM [facility] ALT (SGPT) 25 10 - 60 unit/L LAB CHEMISTRY METHOD 09/22/2024 3:15 AM [facility] Alkaline Phosphatase 77 42 - 121 unit/L LAB CHEMISTRY METHOD 09/22/2024 3:15 AM [facility] Total Protein 8.0 6.0 - 8.0 g/dL LAB CHEMISTRY METHOD 09/22/2024 3:15 AM EST [facility] Albumin 4.2 3.2 - 5.0 g/dL LAB CHEMISTRY METHOD 09/22/2024 3:15 AM EST [facility] Total Bilirubin 0.4 0.0 - 1.4 mg/dL LAB CHEMISTRY METHOD 09/22/2024 3:15 AM EST [facility] Blood Venous blood specimen / Unknown Venipuncture / Unknown 09/22/2024 2:28 AM EST 09/22/2024 2:31 AM EST Paul RUIZ LAB BLOOD ORDERABLES Final Resul t [facility] [address] [place] [address], from Last 3 Months or Most Recently Relevant to Health Maintenance Insurance * Guarantor: Noreen Wing Account Type Relation to Patient Date of Phone Billing Address Personal/Family Self [address] [place] [id number] [facility] MEDICARE Member Subscriber Plan / Payer (Ef fective 2021-Present) Name:WingNoreen garcia Relation to Subscriber:Self Name:WingNoreen garcia Payer ID:[id number] Group ID:[id number] Type:Not on file Address: [facility] [address] [address] Care Teams Clinical Documentation Manager Relationship Specialty Start Date End Date Physician, No Pcp PCP - General 09/22/24
--- OUTSIDE RECORDS SUMMARY | 2025-03-28 01:03 | XMS_ITS | Encounter Summary ---
Author Organization [employer] Address [address] [facility] [address] [place] [address] Care Team Providers Care Measurement Technician Name Role Phone Name, Nitin PIKE Primary Care Provider [phone] Reason for Visit * Reason Onset Date Comments ER Follow-up 05/31/2024 Encounter Details Date Type Department Care Team ([facility] st Contact Info) Description 05/31/2024 Telephone [facility] MEDICINE [address] [place], [place] [phone] Name, MD Nitin [address] [place] [address] ER Follow-up Social History Tobacco Use Types [...] your housing situation today? I have claus ralws 08/25/[address] you li [...] 05/31/2024 1:36 PM EDT T/C to Pat ([facility]) [phone] for below message, no answer. LVM to call back on [phone]. * Telephone Encounter - Melany Santos RN - 05/31/2024 1:32 PM EDT DVAID T/C to pt. Through Jobs2Web id - [id number] for below message, pt. Had recent fall and ED visit at [facility]. RN will request GRACE piedra from [facility]. Pt. Is doing good, states I am tired andsleeping. Pt. Dose not has any question or concern right now. Pt. Already has HDF apt. Schedule on 06/10/2024. Pt. Advised to give call to [facility] if any questions or concerns. Pt. Verbally agreed and understood. Please review and advise if needed. * Telephone Encounter - Adithya Solorzano - 05/31/2024 12:50 PM EDT Patient calling to report ED visit on : Date: 05/26 Hospital: [facility] Seen for: Fall, Back Pain Pat stated pt is requesting a sooner apt with pcp due to recent ER visit. PT is also requesting order for PT services for to go along with [facility]. documented in this encounter Plan of Treatment Upcoming Encounters Date Type Department Care Team (Late st Contact Info) Description 04/29/2025 10:00 AM EDT Office Visit [facility] MED[facility]INE [address] [place] [address] Name, MD Nitin [address] [place] [address] documented as of this encounter Visit Diagnoses Not on filedocumented in this encounter Additional Health Concerns Assessment Noted Time PHQ-9 Depression Total Score: 6 02/13/20 24 9:14 AM EDT documented as of this encounter Care Teams Measurement Technician Relationship Specialty Start Date End Date Name, MD Nitin [address] [place] [address] PCP - General Family Medicine 08/26/17 [facility] 09/01/24 documented as of this encounter
--- OUTSIDE RECORDS SUMMARY | 2025-03-28 01:03 | XMS_ITS | Encounter Summary ---
Author Organization [employer] Address 75 [facility] 7[address] [place] [address] Care Team Providers Care Quality Control Inspector Name Role Phone Name, Nitin PIKE Primary Care Provider [phone] Reason for Visit * Reason Onset Date Comments Hospital Follow-up 10/20/2024 Encounter Details Date Type Department Care Team ([facility] st Contact Info) Description 10/20/2024 Telephone [facility] MEDICINE [address] [place], [place] [phone] Name, MD Nitin [address] [place] [address] Hospital Follow-up Social History Tobacco Use Types [...] from pt requesting a HDF appt. Hospital: [facility] Date of admission: 10/17 Discharge date: 10/19 Diagnosed: High Blood Pressure and Fever Contact pt at [phone] *Send message to [place] Clinical Care Coordinators documented in this encounter Plan of Treatment Upcoming Encounters Date Type Department Care Team (Late st Contact Info) Description 04/29/2025 10:00 AM EDT Office Visit [facility] MEDICINE [address] [place], [place] [phone] Name, MD Nitin [address] [place] [address] documented as of this encounter Visit Diagnoses Not on filedocumented in this encounter Additional Health Concerns Assessment Noted Time PHQ-9 Depression Total Score: 6 02/13/20 24 9:14 AM EDT documented as of this encounter Care Teams Quality Control Inspector Relationship Specialty Start Date End Date Name, MD Nitin [address] [place] [address] PCP - General Family Medicine 08/26/17 [facility] 09/01/24 documented as of this encounter
--- OUTSIDE RECORDS SUMMARY | 2025-03-28 01:03 | XMS_ITS | Encounter Summary ---
Author Organization [employer] Address [address] [facility] 7[address] [place] [address] Care Team Providers Care Art Therapist Name Role Phone Name, Nitin PIKE Primary Care Provider [phone] Reason for Visit * Reason Onset Date Comments Results 08/29/2023 Encounter Details Date Type Department Care Team ([facility] st Contact Info) Description 08/29/2023 Telephone [facility] MEDICINE [address] [place], [place] [phone] Name, MD Nitin [address] [place] [address] Results Social History Tobacco Use Types Packs/Day [...] to urine results. Please contact pt at [phone] (Amharic) documented in this encounter Plan of Treatment Upcoming Encounters Date Type Department Care Team (Late st Contact Info) Description 04/29/2025 10:00 AM EDT Office Visit [facility] MEDICINE [address] [place] [address] Name, MD Nitin [address] [place] [address] documented as of this encounter Visit Diagnoses Not on filedocumented in this encounter Additional Health Concerns Assessment Noted Time PHQ-9 Depression Total Score: 12 023 9:37 AM EDT documented as of this encounter Care Teams Art Therapist Relationship Specialty Start Date End Date Name, MD Nitin [address] [place] [address] PCP - General Family Medicine 08/26/17 [facility] 09/01/24 documented as of this encounter
--- OUTSIDE RECORDS SUMMARY | 2025-03-28 01:03 | XMS_ITS | Encounter Summary ---
Author Organization [employer] Address 75 [facility] [address] [place] [address] Care Team Providers Care Clothes Marker Name Role Phone Name, Nitin PIKE Primary Care Provider [phone] Reason for Visit * Reason Onset Date Comments ER Follow-up 05/04/2024 Encounter Details Date Type Department Care Team ([facility] st Contact Info) Description 05/04/2024 Telephone [facility] MEDICINE [address] [place], [place] [phone] Name, MD Nitin [address] [place] [address] ER Follow-up Social History Tobacco Use Types [...] 11:01 AM EDT T/C to pt. Through Rhomania id - [id number] for below message, No answer. LVM to call back [phone] . * Telephone Encounter - Adithya Solorzano - 05/04/2024 9:35 AM EDT Noreen with [facility] calling to report ED visit on : Date: 04/28 Hospital: [facility] Seen for: UTI, Nausea, Rash. Noreen advised will be forwarding message to team nurses. Please contact pt at [phone]. documented in this encounter Plan of Treatment Upcoming Encounters Date Type Department Care Team (Late st Contact Info) Description 04/29/2025 10:00 AM EDT Office Visit [facility] MEDICINE [address] [place] [address] Name, MD Nitin [address] [place] [address] documented as of this encounter Visit Diagnoses Not on filedocumented in this encounter Additional Health Concerns Assessment Noted Time PHQ-9 Depression Total Score: 6 02/13/20 9:14 AM EDT documented as of this encounter Care Teams Clothes Marker Relationship Specialty Start Date End Date Name, MD Nitin [address] [place] [address] PCP - General Family Medicine 08/26/17 [facility] 09/01/24 documented as of this encounter
--- OUTSIDE RECORDS SUMMARY | 2025-03-28 01:03 | XMS_ITS | Encounter Summary ---
Author Organization [employer] Address 75 [facility] [address] [address] Care Team Providers Care Control Engineer Name Role Phone Name, Nitin PIKE Primary Care Provider [phone] Encounter Details Date Type Department Care Team ([facility] Contact Info) Description 08/08/[address] [facility] MEDICINE [address] [place] [address] [phone] Name, MD Nitin [address] [place] [address] [phone] Social History Tobacco Use Types Packs/Day Years [...] 04/29/2025 10:00 AM EDT Office Visit [facility] MEDICINE [address] [place] [phone] Name, MD Nitin [address] [place] [address] [phone] documented as of this encounter Visit Diagnoses Not on filedocumented in this encounter Additional Health Concerns Assessment Noted Time PHQ-9 Depression Total Score: 12 023 9:37 AM EDT documented as of this encounter Care Teams Control Engineer Relationship Specialty Start Date End Date Name, MD Nitin [address] [place] [address] PCP - General Family Medicine 08/26/17 [facility] 09/01/24 documented as of this encounter
--- OUTSIDE RECORDS SUMMARY | 2025-03-28 01:03 | XMS_ITS | Clinical Summary ---
Author Organization [facility] Facility Address [address] [address] Care Team Providers Care Magazine Feeder Name Role Phone Name, Nitin PIKE Primary Care Provider [phone] Allergies Active Allergy Reactions Criticality Noted Date [...] patient's age to complete this topic [place] [address] MCR ([id number]) [place] [phone] [facility] MCR ([id number]) Care Teams Magazine Feeder Relationship Specialty Start Date End Date Name, MD Nitin [address] [place] [address] PCP - General Internal Medicine 10/15/22
--- OUTSIDE RECORDS SUMMARY | 2025-03-28 01:03 | XMS_ITS | Encounter Summary ---
Author Organization [employer] Address 75 [facility] [address] [place] [address] Care Team Providers Care Aviation Engineer Name Role Phone Name, Nitin PIKE Primary Care Provider [phone] Encounter Details Date Type Department Care Team ([facility] st Contact Info) Description 05/26/2023 Orders Only [facility] MEDICINE [address] [place] [address] Noreen Fox MD [address] [place] [address] Social History Tobacco Use Types Packs/Day Years [...] Health Questionnaire-9 Score 12 05/29/2023 9:37 AM lEton Pantoja documented as of this encounter Plan of Treatment Upcoming Encounters Date Type Department Care Team (Late st Contact Info) Description 04/29/2025 10:00 AM EDT Office Visit [facility] MEDICINE [address] [place] [address] Name, MD Nitin [address] [place] [address] documented as of this encounter Visit Diagnoses Not on filedocumented in this encounter Care Teams Aviation Engineer Relationship Specialty Start Date End Date Name, [place] [address] PCP - General Family Medicine 08/26/17 [facility] 09/01/24 documented as of this encounter
--- OUTSIDE RECORDS SUMMARY | 2025-03-28 01:03 | XMS_ITS | Encounter Summary ---
Author Organization [employer] Address 75 [facility] [address] [place] [address] Care Team Providers Care Basket Maker Name Role Phone Name, Nitin PIKE Primary Care Provider [phone] Reason for Visit * Reason Onset Date Comments FYI 08/11/2024 Encounter Details Date Type Department Care Team ([facility] st Contact Info) Description 08/11/2024 Telephone [facility] [address] [place], [place] [phone] Name, MD Nitin [address] [place] [address] FYI Social History Tobacco Use Types Packs/Day [...] any questions or concerns contact Darryl at [phone] documented in this encounter Plan of Treatment Upcoming Encounters Date Type Department Care Team ([facility] st Contact Info) Description 04/29/2025 10:00 AM EDT Office Visit [facility]INE [address] [place] [address] Name, MD Nitin [address] [place] [address] documented as of this encounter Visit Diagnoses Not on filedocumented in this encounter Additional Health Concerns Assessment Noted Time PHQ-9 Depression Total Score: 6 02/13/20 24 9:14 AM EDT documented as of this encounter Care Teams Basket Maker Relationship Specialty Start Date End Date Name, MD Nitin [address] [place] [address] PCP - General Family Medicine 08/26/17 [facility] 09/01/24 documented as of this encounter
--- OUTSIDE RECORDS SUMMARY | 2025-03-28 01:03 | XMS_ITS | Encounter Summary ---
Author Organization [employer] Address [address] [facility] [address] [address] Care Team Providers Care Shop Tech Name Role Phone Name, Nitin PIKE Primary Care Provider [phone] Reason for Visit * Reason Comments Med Refill Encounter Details Date Type Department Care Team ([facility] st Contact Info) Description 06/28/2024 Refill [facility] [address] [place], [place] [phone] Mel Anguiano FNP [address] [place] [address] Social History Tobacco Use Types Packs/Day Years [...] 10:00 AM EDT Office Visit [facility] [address] [place] [address] Name, MD Nitin [address] [place] [address] documented as of this encounter Visit Diagnoses Not on filedocumented in this encounter Additional Health Concerns Assessment Noted Time PHQ-9 Depression Total Score: 6 02/13/20 9:14 AM EDT documented as of this encounter Care Teams Shop Tech Relationship Specialty Start Date End Date Name, MD Nitin [address] [place] [phone] PCP - General Family Medicine 08/26/17 [facility] 09/01/24 documented as of this encounter
--- OUTSIDE RECORDS SUMMARY | 2025-03-28 01:03 | XMS_ITS | Clinical Summary ---
Author Organization [employer] Address [address] [place] [address] 7t [place] [address] Care Team Providers Care Packing Machine Feeder Name Role Phone Name, Nitin PIKE Primary Care Provider [phone] Allergies Active Allergy Reactions Criticality Noted Date [...] MOUTH EVERY 8 HOURS NEEDED FOR PAIN (CAMBODIAN LABEL) 90 tablet 09/02/20 24 Active ammonium [...] because it calms her down. I called [facility] pharmacy to attempt a med rec they instructed me that she is on med box and one week at a time prescriptions because she would break into her med boxes to take more Ambien or xanax. She is being seen by Izzy Perea at [facility]. He is aware of her behavior [...] left I received a call from the [facility] pharmacy instructing me that she [...] Type Department Care Team Description 03/16/2025 Refill [facility] [address] [place] [address] Nitin Echevarria MD Vitamin D deficiency 03/15/[address] [address] Lyric Anderson [place] returning call back 03/14/2025 Telephone [facility] [address] [place] [address] Nitin Echevarria MD Call Back Request 03/07/2025 Telephone [facility] [address] [place] [address] Nitin Echevarria MD 02/23/2025 Refill [facility] [address] [address] Nitin Echevarria MD Vitamin D deficiency 02/22/2025 8:40 AM EDT [facility] [address] [address] Zechariah Cheung MD Chronic rhinitis (Primary Dx); Tinnitus of both ears; Chronic left ear pain; Allergic rhinitis, unspecified seasonality, unspecified trigger 02/22/2025 Travel 02/14/2025 9:00 AM EDT Office Visit [facility] [address] [address] Delfina Romero MD 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); Viral upper respiratory tract infection 02/14/2025 Travel 02/14/2025 Refill [facility] [address] [place] [address] Nitin Echevarria MD Heartburn 02/14/2025 Orders Only GENERIC EXTERNAL DATA DEPARTMENT Provider, Generic External Data 02/11/2025 Refill [facility] [address] [place] [address] Nitin Echevarria MD Generalized anxiety disorder with panic attacks 02/07/2025 Orders Only GENERIC EXTERNAL DATA DEPARTMENT Provider, Generic External Data 02/06/2025 Orders Only GENERIC EXTERNAL DATA DEPARTMENT Provider, Generic External Data 02/02/2025 Refill [facility] [address] [place] [address] Nitin Echevarria MD Chronic constipation; Vertigo 02/01/2025 Refill [facility] [address] [place] [address] Nitin Echevarria MD Generalized anxiety disorder with panic attacks 01/31/2025 9:20 AM EDT Office Visit [facility] [address] [place] [address] Karely Patiño MD Impacted cerumen of left ear (Primary Dx) 01/24/2025 Refill [facility] [address] [place] [address] Nitin Echevarria MD Generalized anxiety disorder with panic attacks; Hypertension, unspecified type 01/10/2025 11:00 AM EST Office Visit [address] [address] Nitin Echevarria MD Generalized anxiety disorder with panic attacks (Primary Dx); Cerumen debris on tympanic membrane of both ears 01/10/2025 Travel 01/09/2025 Refill [facility] [address] [place] [address] Nitin Echevarria MD Hypertension, unspecified type 01/05/2025 Telephone [facility] [address] [place] [address] Nitin Echevarria MD chartprep 01/03/2025 Refill [facility] [address] [place] [address] Nitin Echevarria MD Vertigo; Vitamin D deficiency [...] Description 04/29/2025 10:00 AM EDT Office Visit [facility] [address] [facility] [place] [address] Name, MD Nitin [address] [place] [address] Health Maintenance Due Date Last Done Comments [...] Rapid Molecular) (02/22/2025 8:58 AM EDT) Pathologist [facility] Influenza B Negative Negative, Indeterminate [facility] Swab 02/22/2025 8:58 AM EDT us Zechariah Cheung MD POINT OF CARE TEST ENTER/EDIT OR DERABLES Final Result Performing Organization Address [facility] Co de Phone Number [facility] [address] [place] [phone] * Influenza A (ID NOW Rapid Molecular) (02/22/2025 8:58 AM EDT) [facility] Influenza A Negative Negative, Indeterminate [facility] Swab 02/22/2025 8:58 AM EDT us Zechariah Cheung MD POINT OF CARE TEST ENTER/EDIT OR DERABLES Final Result Performing Organization Address [facility]/ZIP Co de Phone Number [facility] [address] [place] [phone] * POCT Rapid COVID Ag (02/22/2025 8:58 AM EDT) Rapid COVID Ag Negative [facility] Swab 02/22/2025 8:58 AM EDT us Zechariah Cheung MD POINT OF CARE TEST ENTER/EDIT OR DERABLES Final Result Performing Organization Address [facility] Co de Phone Number [facility] [address] [place] [phone] * POCT rapid strep A manually resulted (02/22/2025 8:58 AM EDT) Rapid Strep A Screen Negative Negative, None Detected [facility] Swab 02/22/2025 8:58 AM EDT Zechariah Cheung MD POINT OF CARE TEST ENTER/EDIT OR DERABLES Final Result [facility] [address] [place] [phone] * XR Chest 1 View (02/14/2025 2:56 AM EDT) Anatomical Region Laterality Modality Chest Radiographic Lauren ging 02/14/2025 2:56 AM EDT Narrative 02/14/2025 2:58 AM EDT ? [facility] ?[address] ?[place] [address] ?XRay Report ? Signed ? Patient: Noreen Wing ?MR#: [id number] ? : 1945 ?Acct:[id number] ? Age/Sex: 79 / F ?ADM Date: 02/14/25 ? Loc: HO.ED ? Attending Dr: ? Ordering Physician: Generic ED Physician ?? Date of Service: 02/14/25 ?? Procedure(s): XR chest 1V ?? Accession Number(s): [id number] ? cc: Generic ED Physician; [facility] ? CLINICAL HISTORY: sob ? 1 view [...] DD/ 5 ? TD/TT: 02/14/25 0256 ? Special Procedures Technologist: ? Procedure Note Ac, Image - 02/14/[address] [address] XRay Report Signed Patient: Noreen WingMR#: [id number] : 3Acct:[id number] Age/Sex: 79 / FADM Date: 02/14/25 Loc: HO.ED Attending Dr: Ordering Physician: Generic ED Physician Date of Service: 02/14/25 Procedure(s): XR chest 1V Accession Number(s): [id number] cc: Generic ED Physician; [facility] CLINICAL HISTORY: sob 1 view chest x-ray [...] in OV> 02/14/25256 DD/ 5 TD/TT: 02/14/25255 Special Procedures Technologist: us [facility] External Provider IMG XR PROCEDURES Edited Result - Final * Strep A Nucleic Acid (02/14/2025 12:10 AM EDT) [employer]NOW SERIAL# [id number] [facility] Strep A Nucleic Acid Negative Negative [facility] Comment:All test results mus t be [...] GENERAL ORDERABLES Final Result Performing Organization Address [facility] Co de Phone Number [facility] [address] [place] [phone] * SARS-CoV-2 RNA, Influenza A/B, and RSV RNA, Ql NAAT (02/14/2025 12:10 AM EDT) Influenza A PCR NEGATIVE Negative [facility] Influenza B PCR NEGATIVE Negative [facility] Resp Syncy Virus RNA Qual PCR NEGATIVE Negative [facility] SARS COV2 PCR NEGATIVE Negative [facility] Comment:All test results mus t [...] use by authorized laboratories.Testing performed on the [employer] GeneXpert utilizingreal-time RT-PCR.All SARS CoV2 and positive influenza A/B results arereported to [facility]. 02/14/2025 12:1 0 AM EDT 02/14/2025 12:13 AM EDT us Generic External Data Provider LAB MICROBIOLOGY - GENERAL ORDERABLES Final Result Performing Organization Address [facility] Co de Phone Number [facility] [address] [place] [phone] * XR KUB and Upright 2 Views (02/07/2025 12:53 AM EDT) Anatomical Region Laterality Modality Radiographic Lauren ging 02/07/2025 12:5 3 AM EDT Narrative 02/07/2025 12:55 AM EDT ? [facility] ?[address] ?[place] [address] ?XRay Report ? Signed ? Patient: Wing,Noreen ?MR#: [id number] ? : 1945 ?Acct:[id number] ? Age/Sex: 79 / F ?ADM Date: 02/06/25 ? Loc: HO.ED ? Attending Dr: ? Ordering Physician: Jeanne Shen ?? Date of Service: 02/07/25 ?? Procedure(s): XR KUB ?? Accession Number(s): [id number] ? cc: Jeanne Shen; [facility] ? CLINICAL HISTORY: pain ? 1 view [...] DD/ 0053 ? TD/TT: 02/07/25 0053 ? Special Procedures Technologist: ? Procedure Note Ac, Dale - 02/07/2025 [place] [address] XRay Report Signed Patient: Noreen WingMR#: [id number] : 3Acct:[id number] Age/Sex: 79 / FADM Date: 02/06/25 Loc: HO.ED Attending Dr: Ordering Physician: Jeanne Shen Date of Service: 02/07/25 Procedure(s): XR KUB Accession Number(s): [id number] cc: Jeanne Shen; [facility] CLINICAL [...] MD in OV> 02/07/2553 DD/ TD/TT: 02/07/2552 Special Procedures Technologist: [facility] External Provider IMG XR PROCEDURES Edited Result - Final * Culture, Urine, Routine (02/07/2025 12:00 AM EDT) Urine Urine specimen obtained by clean catch procedure / Unknown 02/07/2025 02/07/2025 Comment:UACC Narrative [facility] - 02/08/2025 8:36 AM EDT Urine Culture Report Result Urine Culture 50,000 to 100,000 cfu/ml Urine Culture Mixed bacterial jann characteristic of Urine Culture urogenital contamination. Specimen Source: Urine clean catch Generic External Data Provider LAB MICROBIOLOGY - GENERAL ORDERABLES Final Result [facility] [address] [place] [phone] * (ABNORMAL) Urinalysis, Complete, with Reflex to Culture (02/06/2025 11:50 PM EDT) Color Urine Yellow [facility] Appearance Urine Hazy [facility] PH 6.0 5.0 - 9.0 [facility] Glucose Urine UA Negative Negative mg/dL [facility] Urine Blood Trace Negative [facility] Specific [place] - Urine 1.020 1.005 - 1.025 [facility] Urine Protein Negative Neg-Trace mg/dL [facility] Urine Ketones Negative Negative mg/dL [facility] Nitrite Urine Negative Negative [facility] Leukocyte Esterase Urine Moderate (2+)(A) Negative [facility] RBC Urine 0-2 0 - 2 /HPF [facility] Urine WBC 11-20(A) 0 - 5 /HPF [facility] Urine Squamous Epithelial Cell 6-10 0 - 2 /HPF [facility] Urine Bacteria 2+ None Seen [facility] Hyaline Casts, Urine 0-2 0 - 2 /LPF [facility] 02/06/2025 11:5 0 PM EDT 02/06/2025 11:56 PM EDT Narrative [facility] - 02/07/2025 12:13 AM EDT Urine, Clean Catch Generic External Data Provider LAB URINE ORDERAB LES Final Result [facility] [address] [place] [phone] * POCT Glucose (01/10/2025 11:03 AM [...] ?? Jack RAYO et al. JITENDRA. 2013;310(19): 8789-2167 ?? (http://education.MedServe/faq/ENF098) Non-HDL Cholesterol 88 <130 mg/dL (calc) CONVERTED [...] Recently Relevant to Health Maintenance Insurance [address] [place] [address] [employer] C[employer] OPT[employer] (HMO D-SNP) [facility] CUSTODIAL OPTIONS (HMO D-SNP) Care Teams Packing Machine Feeder Relationship Specialty Start Date End Date Name, MD Nitin [address] [place] [phone] PCP - General Family Medicine 08/26/17 [facility] 09/01/24
--- OUTSIDE RECORDS SUMMARY | 2025-03-28 01:04 | XMS_ITS | Encounter Summary ---
Author Organization [employer] Address [address] [facility] [address] [place] [address] Care Team Providers Care Package Sorter Name Role Phone Name, Nitin PIKE Primary Care Provider [phone] Reason for Visit * Reason Onset Date Comments Verbal Orders 12/15/2023 Encounter Details Date Type Department Care Team ([facility] st Contact Info) Description 12/15/2023 Telephone [facility] [address] [place], [place] [phone] Name, MD Nitin [address] [place] [address] Verbal Orders Social History Tobacco Use Types [...] 12:03 PM EST Tc from [facility] with [facility] requesting verbal order to see pt 2 times a week for 4 weeks for Occupational Therapy, please contact [facility] at [phone] documented in this encounter Plan of Treatment Upcoming Encounters Date Type Department Care Team (Late st Contact Info) Description 04/29/2025 10:00 AM EDT Office Visit [facility] [address] [place] [address] Name, MD Nitin [address] [place] [address] documented as of this encounter Visit Diagnoses Not on filedocumented in this encounter Additional Health Concerns Assessment Noted Time PHQ-9 Depression Total Score: 12 023 9:37 AM EDT documented as of this encounter Care Teams Package Sorter Relationship Specialty Start Date End Date Name, MD Nitin [address] [place] [address] PCP - General Family Medicine 08/26/17 [facility] 09/01/24 documented as of this encounter
--- OUTSIDE RECORDS SUMMARY | 2025-03-28 01:04 | XMS_ITS | Encounter Summary ---
Author Organization [employer] Address 75 [facility] [address] [place] [address] Care Team Providers Care Domestic Violence Counselor Name Role Phone Name, Nitin PIKE Primary Care Provider [phone] Reason for Visit * Reason Onset Date Comments Call Back Request 03/14/2025 Encounter Details Date Type Department Care Team ([facility] st Contact Info) Description 03/14/2025 Telephone [facility] [address] [place], [place] [phone] Name, MD Nitin [address] [place] [address] Call Back Request Social History Tobacco Use [...] Office Visit [facility] [address] [place] [address] Name, MD Nitin [address] [place] [address] documented as of this encounter Visit Diagnoses Not on filedocumented in this encounter Additional Health Concerns Assessment Noted Time PHQ-9 Depression Total Score: 6 02/13/20 9:14 AM EDT documented as of this encounter Care Teams Domestic Violence Counselor Relationship Specialty Start Date End Date Name, MD Nitin [address] [place] [address] PCP - General Family Medicine 08/26/17 [facility] 09/01/24 documented as of this encounter
--- OUTSIDE RECORDS SUMMARY | 2025-03-28 01:04 | XMS_ITS | Encounter Summary ---
Author Organization [employer] Address [address] [facility] [address] [address] Care Team Providers Care Server Engineer Name Role Phone NameNitin MD Primary Care Provider [phone] Encounter Details Date Type Department Care Team ([facility] Contact Info) Description 01/06/2023 Orders Only [facility] [address] [place], [place] [phone] Lisha Kelly LPN Social History Tobacco Use [...] 10:00 AM EDT Office Visit [facility] [address] [place], [place] [phone] NameNitin MD [address] [place] [address] documented as of this encounter Visit Diagnoses Not on filedocumented in this encounter Care Teams Server Engineer Relationship Specialty Start Date End Date NameNitin MD 230 [place] [address] PCP - General Family Medicine 08/26/17 [facility] 09/01/24 documented as of this encounter
--- OUTSIDE RECORDS SUMMARY | 2025-03-28 01:04 | XMS_ITS | Encounter Summary ---
Author Organization [employer] Address 75 [facility] [address] [place] [address] Care Team Providers Care Brick Shader Name Role Phone Name, Nitin PIKE Primary Care Provider [phone] Reason for Visit * Reason Comments Med Refill Encounter Details Date Type Department Care Team (Late Contact Info) Description 03/02/2023 Refill [facility] [address] [place] [address] Karely Patiño MD [address] [place] [address] [phone] Social History Tobacco Use Types Packs/Day Years [...] Description 04/29/2025 10:00 AM EDT Office Visit [facility] [address] [place] [address] [phone] Wale, MD Nitin [address] [place] [address] documented as of this encounter Visit Diagnoses Not on filedocumented in this encounter Care Teams Brick Shader Relationship Specialty Start Date End Date Name, MD Nitin [address] [place] [address] PCP - General Family Medicine 08/26/17 [facility] 09/01/24 documented as of this encounter
--- OUTSIDE RECORDS SUMMARY | 2025-03-28 01:04 | XMS_ITS | Encounter Summary ---
Author Organization [employer] Address 75 [facility] [address] [place] [address] Care Team Providers Care Client Technical Support Associate Name Role Phone Name, Nitin PIKE Primary Care Provider [phone] Reason for Visit * Reason Comments Med Refill Encounter Details Date Type Department Care Team (Late st Contact Info) Description 08/16/2024 Refill [facility] [address] [place], [place] [phone] Name, MD Nitin [address] [place] [address] Heartburn Social History Tobacco Use Types Packs/Day [...] 10:00 AM EDT Office Visit [facility] [address] [place] [phone] NameNitin MD [address] [place] [address] documented as of this encounter Visit Diagnoses Diagnosis Heartburn documented in this encounter Additional Health Concerns Assessment Noted Time PHQ-9 Depression Total Score: 6 02/13/20 9:14 AM EDT documented as of this encounter Care Teams Client Technical Support Associate Relationship Specialty Start Date End Date NameNitin MD [address] [place] [phone] PCP - General Family Medicine 08/26/17 [facility] 09/01/24 documented as of this encounter
--- OUTSIDE RECORDS SUMMARY | 2025-03-28 01:04 | XMS_ITS | Encounter Summary ---
Author Organization [employer] Address 75 [facility] [address] [place] [address] Care Team Providers Care Runway Model Name Role Phone Name, Nitin PIKE Primary Care Provider [phone] Reason for Visit * Reason Onset Date Comments Order(s) 12/09/2023 Encounter Details Date Type Department Care Team ([facility] st Contact Info) Description 12/09/2023 Telephone [facility] [address] [place], [place] [phone] Name, MD Nitin [address] [place] [address] Order(s) Social History Tobacco Use Types Packs/Day [...] orders. If any questions please contact Noreen [phone]. documented in this encounter Plan of Treatment Upcoming Encounters Date Type Department Care Team (Late st Contact Info) Description 04/29/2025 10:00 AM EDT Office Visit [facility] [address] [place] [phone] Name, MD Nitin [address] [place] [address] documented as of this encounter Visit Diagnoses Not on filedocumented in this encounter Additional Health Concerns Assessment Noted Time PHQ-9 Depression Total Score: 12 023 9:37 AM EDT documented as of this encounter Care Teams Runway Model Relationship Specialty Start Date End Date Name, MD Nitin [address] [place] [phone] PCP - General Family Medicine 08/26/17 [facility] 09/01/24 documented as of this encounter
--- OUTSIDE RECORDS SUMMARY | 2025-03-28 01:04 | XMS_ITS | Encounter Summary ---
Author Organization [employer] Address [address] [facility] [address] [place] [address] Care Team Providers Care Agronomy Teacher Name Role Phone NameNitin MD Primary Care Provider [phone] Encounter Details Date Type Department Care Team (Late st Contact Info) Description 11/06/2022 Orders Only [facility] [address] [place], [place] [phone] Lisha Kelly LPN Social History Tobacco Use [...] EDT Office Visit [facility] [address] [place] [address] Nitin Echevarria MD [address] [place] [address] documented as of this encounter Visit Diagnoses Not on filedocumented in this encounter Care Teams Agronomy Teacher Relationship Specialty Start Date End Date Nitin Echevarria MD [address] [place] [address] PCP - General Family Medicine 08/26/17 [facility] 09/01/24 documented as of this encounter
--- OUTSIDE RECORDS SUMMARY | 2025-03-28 01:04 | XMS_ITS | Encounter Summary ---
Author Organization [employer] Address [address] [facility] [address] [place] [address] Care Team Providers Care Sole Buffer Name Role Phone Name, Nitin PIKE Primary Care Provider [phone] Reason for Visit * Reason Onset Date Comments FYI 01/21/2024 ER Follow-up 01/21/2024 Encounter Details Date Type Department Care Team ([facility] st Contact Info) Description 01/21/2024 Telephone [facility] MEDICINE [address] [place], [place] [phone] Name, MD Nitin [address] [place] [address] FYI; ER Follow-up Social History Tobacco Use [...] - 01/21/2024 1:54 PM EDT Message from [facility] ED noted. [facility] [place] sent to medical records. PCP does not rx Trazodone. Pt to f/u with psych prescriber. Pt is scheduled for f/u with pcp 02/13/24. * Telephone Encounter - Janette Huitron - 01/21/2024 9:45 AM EDT Tc from nata with [facility] ED calling in regards to pt. States pt was seen today for anxiety and is requesting trazodone. Will discharge pt with no medication change. Would also like to advise provider, [place] [facility] [place] for anxiety/insomnia as well documented in this encounter Plan of Treatment Upcoming Encounters Date Type Department Care Team (Late st Contact Info) Description 04/29/2025 10:00 AM EDT Office Visit [facility] MED[facility]INE [address] [place] [address] Name, MD Nitin [address] [place] [address] documented as of this encounter Visit Diagnoses Not on filedocumented in this encounter Additional Health Concerns Assessment Noted Time PHQ-9 Depression Total Score: 12 023 9:37 AM EDT documented as of this encounter Care Teams Sole Buffer Relationship Specialty Start Date End Date Name, MD Nitin [address] [place] [address] PCP - General Family Medicine 08/26/17 [facility] 09/01/24 documented as of this encounter
--- OUTSIDE RECORDS SUMMARY | 2025-03-28 01:04 | XMS_ITS | Encounter Summary ---
Author Organization [employer] Address [address] [facility] [address] [place] [address] Care Team Providers Care Motor Pool Clerk Name Role Phone Name, Nitin PIKE Primary Care Provider Reason for Visit * Reason Onset Date Comments Verbal Orders 01/02/2024 Encounter Details Date Type Department Care Team ([facility] st Contact Info) Description 01/02/2024 Telephone [facility] MEDICINE [address] [place], [place] [phone] Name, MD Nitin [address] [place] [address] Verbal Orders Social History Tobacco Use Types [...] No answer. LVM to call back on [phone]. * Telephone Encounter - Melany Santos RN - 01/06/2024 10:25 AM EST Please review and advise for below request. * Telephone Encounter - Deana Bazzi - 01/02/2024 3:44 PM EST Tc from [facility] with S requesting verbal orders for discharge pt from Occupational Therapy, due to pt refuses services, please contact [facility] at [phone]. documented in this encounter Plan of Treatment Upcoming Encounters Date Type Department Care Team (Late st Contact Info) Description 04/29/2025 10:00 AM EDT Office Visit [facility] MEDICINE [address] [place] [id number] Name, MD Nitin [address] [place] [address] documented as of this encounter Visit Diagnoses Not on filedocumented in this encounter Additional Health Concerns Assessment Noted Time PHQ-9 Depression Total Score: 12 023 9:37 AM EDT documented as of this encounter Care Teams Motor Pool Clerk Relationship Specialty Start Date End Date Name, MD Nitin [address] [place] [address] PCP - General Family Medicine 08/26/17 [facility] 09/01/24 documented as of this encounter
--- OUTSIDE RECORDS SUMMARY | 2025-03-28 01:04 | XMS_ITS | Encounter Summary ---
Author Organization [employer] Address [address] [facility] [address] [place] [address] Care Team Providers Care Barbering Teacher Name Role Phone Name, Nitin PIKE Primary Care Provider [phone] Reason for Visit * Reason Onset Date Comments Durable Medical Equipment 12/09/2023 Encounter Details Date Type Department Care Team ([facility] st Contact Info) Description 12/09/2023 Telephone [facility] MEDICINE [address] [place], [place] [phone] Name, MD Nitin [address] [place] [address] Durable Medical Equipment Social History Tobacco Use [...] EST DME rx faxed to [facility] as requested. RN will consult with S nurse and provide referral. * Telephone Encounter - Fozia Jacob RN - 12/09/2023 4:58 PM EST Call returned to [facility] at [facility] [phone] ext. [phone]. [facility] states that [facility] attempted to provide PT at home but pt refused. [facility] pt is requesting outpatient PT. [facility] pt is seeing a counselor more regularly and has agreed to VNA referral. Reports pt has had 3 falls in the past 2 months. [facility] states [facility] no longer has visiting nurses. [facility] recommends [facility] or [facility] for VNA referral. [facility] also requesting DME rx for rollator walker and a straight cane. Requests that DME rx be faxed to [phone]. Advised requests will be sent to pcp. * Telephone Encounter - Adithya Solorzano - 12/09/2023 4:25 PM EST Tc from [facility] requesting DME: Rollator walker . documented in this encounter Plan of Treatment Upcoming Encounters Date Type Department Care Team (Late st Contact Info) Description 04/29/2025 10:00 AM EDT Office Visit [facility] [address] [facility] [place] [address] Name, MD Nitin [address] [facility] [place] [address] documented as of this encounter Visit Diagnoses Not on filedocumented in this encounter Additional Health Concerns Assessment Noted Time PHQ-9 Depression Total Score: 12 023 9:37 AM EDT documented as of this encounter Care Teams Barbering Teacher Relationship Specialty Start Date End Date Name, MD Nitin [facility] [place] [address] PCP - General Family Medicine 08/26/17 [facility] 09/01/24 documented as of this encounter
--- OUTSIDE RECORDS SUMMARY | 2025-03-28 01:04 | XMS_ITS | Encounter Summary ---
Author Organization [employer] Address [address] [facility] [address] [place] [address] Care Team Providers Care Alley Worker Name Role Phone Name, Nitin PIKE Primary Care Provider [phone] Encounter Details Date Type Department Care Team ([facility] Contact Info) Description 12/17/2022 Orders Only [facility] [address] [place], [place] [phone] Lisha Kelly LPN Social History Tobacco Use [...] Office Visit [facility] MEDICINE [address] [place] [address] Nitin Echevarria MD [address] [place] [address] documented as of this encounter Visit Diagnoses Not on filedocumented in this encounter Care Teams Alley Worker Relationship Specialty Start Date End Date NameNitin MD [address] [place] [address] PCP - General Family Medicine 08/26/17 [facility] 09/01/24 documented as of this encounter
--- OUTSIDE RECORDS SUMMARY | 2025-03-28 01:04 | XMS_ITS | Encounter Summary ---
Author Organization [employer] Address [address] [facility] [address] [place] [address] Care Team Providers Care Surgical Territory Manager Name Role Phone Name, Nitin PIKE Primary Care Provider [phone] Reason for Visit * Reason Onset Date Comments triage 12/18/2022 Encounter Details Date Type Department Care Team ([facility] st Contact Info) Description 12/18/2022 Telephone [facility] MEDICINE [address] [place], [place] [phone] Name, MD Nitin [address] [place] [address] triage Social History Tobacco Use Types Packs/Day [...] 12/18/2022 2:35 PM EST Called pt. Via [employer] staff interpreter [phone] Eduardo. Pt. States that she has a [...] phone. Please reach out to pt. With Wolof speaking another time to see what her [...] 10:00 AM EDT Office Visit [facility] MEDICINE [address] [place] [address] Name, MD Nitin [address] [place] [address] documented as of this encounter Visit Diagnoses Not on filedocumented in this encounter Care Teams Surgical Territory Manager Relationship Specialty Start Date End Date NameNitin MD [address] [place] [address] PCP - General Family Medicine 08/26/17 [facility] 09/01/24 documented as of this encounter
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
[2025-03-28] MEDS: LORazepam 0.5 MG TABLET PO (03:27)
[2025-03-28 03:29] VITALS: BP 119/78; PULSE 62; RESP 18; TEMP 36.7; O2SAT 95
== END 2025-03-28 03:31 | disposition home or self-care (01) ==
PROVIDERS: Emergency Provider Emergency Medicine
DX: F41.1 Generalized anxiety disorder (principal); F41.0 Panic disorder [episodic paroxysmal anxiety]; Z79.899 Other long term (current) drug therapy
CPT/HCPCS: 99282; 99283

== ENCOUNTER 2025-04-12 02:58 | Emergency (ER) | payer OTHER, SELFPAY ==
[2025-04-12 03:00] VITALS: BP 160/88; BP 162/69; PULSE 79; PULSE 85; RESP 18; O2SAT 98; BMI 26.9
[2025-04-12 03:06] VITALS: TEMP 36.6
--- OUTSIDE RECORDS SUMMARY | 2025-04-12 03:09 | XMS_ITS | Encounter Summary ---
Author Organization [employer] Address [address] [facility] [address] [place] [address] Care Team Providers Care Cobbler Sole Name Role Phone Name, Nitin PIKE Primary Care Provider [phone] Reason for Visit * Reason Onset Date Comments Med Refill 11/08/2024 Encounter Details Date Type Department Care Team ([facility] st Contact Info) Description 11/08/2024 Telephone [facility] MEDICINE [address] [place], [place] [phone] Name, MD Nitin [address] [place] [address] Med Refill Social History Tobacco Use Types [...] 5 MG tablet To be sent to: [facility] - [place], [place] - [address] [facility] documented in this encounter Plan of Treatment Upcoming Encounters Date Type Department Care Team ([facility] st Contact Info) Description 04/29/2025 10:00 AM EDT Office Visit [facility] MEDICINE [address] [place] [address] Name, MD Nitin [address] [place] [address] documented as of this encounter Visit Diagnoses Not on filedocumented in this encounter Additional Health Concerns Assessment Noted Time PHQ-9 Depression Total Score: 6 02/13/20 24 9:14 AM EDT documented as of this encounter Care Teams Cobbler Sole Relationship Specialty Start Date End Date Name, MD Nitin [address] [place] [address] PCP - General Family Medicine 08/26/17 [facility] 09/01/24 documented as of this encounter
[2025-04-12 03:13] LABS: Glucose, Whole Blood 102 mg/dL (60-115)
--- NOTE | 2025-04-12 03:47 | ED_ITS ---
HPI - Anxiety General Chief Complaint: Anxiety Stated Complaint: ANXIETY ATTACK Time Seen by Provider: 04/12/25 03:45 Source: patient Mode of arrival: EMS Limitations: no limitations History of Present Illness ED Provider: HPI narrative: patient's history of anxiety with frequent ED visits for anxiety/panic attack came as become panic just prior to arrival for aggravating factor , checked the blood pressure was elevated on arrival blood pressure is 162/69 is still feeling anxious no chest pain no palpitation Related Data Home Medications ?Medication ?Instructions ?Recorded ?Confirmed mirtazapine 45 mg tablet 45 mg PO BEDTIME 08/09/20 03/16/25 omeprazole 20 mg tablet,delayed 20 mg PO DAILY@0630 08/09/20 03/16/25 release aspirin 81 mg tablet,delayed 81 mg PO QAM 01/28/24 03/16/25 release bisacodyl 5 mg tablet,delayed 5 mg PO DAILY PRN constipation 01/28/24 03/16/25 release diphenhydramine HCl 25 mg tablet 25 mg PO BEDTIME PRN itch 01/28/24 03/16/25 (Lou-Dryl) ferrous sulfate 325 mg (65 mg 325 mg PO DAILY 01/28/24 03/16/25 iron) tablet (FeroSul) melatonin 10 mg tablet,extended 10 mg PO BEDTIME PRN Insomnia 01/28/24 03/16/25 release multivitamin 1 tab PO QAM 01/28/24 03/16/25 rosuvastatin 20 mg tablet 20 mg PO BEDTIME 01/28/24 03/16/25 trazodone 50 mg tablet 50 mg PO BEDTIME 01/28/24 03/16/25 amlodipine 10 mg tablet 10 mg PO DAILY 02/09/24 03/16/25 acetaminophen 500 mg tablet 500 mg PO Q8H PRN pain 08/09/24 03/16/25 ipratropium bromide 21 mcg (0.03 2 spray intranasal BID 08/09/24 03/16/25 %) nasal spray zolpidem 5 mg tablet 5 mg PO BEDTIME PRN Insomnia 08/09/24 03/16/25 cholecalciferol (vitamin D3) 25 25 mcg PO DAILY 08/20/24 03/16/25 mcg (1,000 unit) tablet meclizine 25 mg tablet 25 mg PO DAILY PRN 09/29/24 03/16/25 sertraline 100 mg tablet 100 mg PO DAILY 03/16/25 03/16/25 Previous Rx's ?Medication ?Instructions ?Recorded metoprolol succinate 50 mg 50 mg PO DAILY #90 tabs 09/28/20 tablet,extended release 24 hr fluticasone propionate 50 2 spray intranasal DAILY #16 grams 09/16/23 mcg/actuation nasal spray,suspension (Flonase Allergy Relief) ondansetron 4 mg disintegrating 4 mg PO Q6H PRN nausea and 04/28/24 tablet vomiting #10 tabs hydroxyzine HCl 25 mg tablet 25 mg PO TID PRN anxiety #6 tabs 08/07/24 clonazepam 0.5 mg tablet 0.5 mg PO TID #180 tabs 08/10/24 gabapentin 100 mg capsule 100 mg PO TID #180 caps 08/10/24 hydroxyzine HCl 25 mg tablet 25 mg PO TID PRN anxiety #20 tabs 09/09/24 miconazole nitrate 2 % vaginal 1 appful vaginal BEDTIME 7 days 10/09/24 cream (Monistat 7) #45 grams nitrofurantoin 100 mg PO Q12H 3 days #6 caps 10/09/24 monohydrate/macrocrystals 100 mg capsule (Macrobid) miconazole nitrate 2 % topical 1 appl topical BID #28 grams 01/01/25 cream valsartan 160 mg tablet 160 mg PO DAILY #90 tabs 01/20/25 ofloxacin 0.3 % ear drops 10 drp otic (ears) DAILY 7 days #5 02/01/25 mL docusate sodium 100 mg capsule 200 mg (2 x 100 mg) PO BID #30 caps 02/07/25 (Col-Rite) polyethylene glycol 3350 17 17 g PO Q8H #238 grams 02/07/25 gram/dose oral powder (ClearLax) white petrolatum 41 % topical 1 appl topical BID PRN irritated 02/07/25 ointment (Advanced Healing skin #50 grams (Petrolatum)) azithromycin 250 mg tablet 250 mg PO DAILY 4 days #4 tabs 02/14/25 (Zithromax) docusate sodium 100 mg capsule 200 mg (2 x 100 mg) PO BID #20 caps 02/24/25 (Colace) polyethylene glycol 3350 17 17 g PO BID #119 grams 02/24/25 gram/dose oral powder (Miralax) simethicone 180 mg capsule 180 mg PO BID PRN abdominal 03/03/25 distention #14 caps Allergies Allergy/AdvReac Type Severity Reaction Status Date / Time penicillin G [Penicillin G] Allergy Severe ITCHY/RASH Verified 04/14/25 23:17 Sulfa (Sulfonamide Allergy Severe ITCHY,RASH, Verified 04/14/25 23:17 Antibiotics) rash [Sulfa (Sulfonamides)] trimethoprim [From Bactrim] Allergy Severe HIVES Verified 04/14/25 23:17 Penicillins Allergy Intermediate Hives Verified 04/14/25 23:17 sulfamethoxazole Allergy Mild Hives Verified 04/14/25 23:17 [From Bactrim] Review of Systems Review of Systems: Yes all other systems are reviewed and are negative [facility] Past Medical History 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) Unable to assess alcohol history related to: Unknown Alcohol intake: never Patient Tobacco Use Status: Never used Tobacco Smoked in Last 30 Days: No Use of substances other than those prescribed or required for medical reasons: No Advance Directives: Yes Advance Directives on File: Yes Advance Directives Date on File: 01/28/24 Do you have a plan to hurt others: No Plan service: No Physical Exam Vital Signs: Vital Signs: Last Vital Signs Temp 97.9 F 04/12/25 06:07 Pulse 89 04/12/25 06:07 Resp 16 04/12/25 06:07 BP 129/63 04/12/25 06:07 Pulse Ox 98 04/12/25 06:07 O2 Del Method Room Air 04/12/25 06:07 BMI result Body Mass Index 26.9 Appearance: Alert. Oriented X3. No acute distress. anxious Eyes: PERRLA, No Nystagmus ENT: Pharynx normal. Oral Mucosa moist Neck: Normal inspection. Neck supple. CVS: Normal heart rate and rhythm. Pulses normal. Respiratory: No respiratory distress. Equal air entry bilateral, no wheezing/rales/rhonchi Abdomen: Soft and nontender. Bowel sounds are present, no mass palpable, no CVA tenderness Skin: Skin warm and dry. Normal skin color. Normal skin turgor. Extremities: No lower extremity edema. No calf tenderness Neuro: Oriented X 3. No motor deficit. No sensory deficit.No cerebellar signs , cranial nerves II-XII intact Medications Administered Discontinued Medications Generic Name Dose Route Start Last Admin Trade Name Freq PRN Reason Stop Dose Admin Clonazepam 0.5 mg 04/12/25 03:46 04/12/25 04:09 Clonazepam 0.5 Mg Tablet PO 04/12/25 03:47 0.5 mg ONCE ONE Administration Medical Decision Making Medical Decision Making MDM Narrative: Patient with anxiety frequent ED visits improved after taking Klonopin discharge patient home Lab Data Labs: Lab Results 04/12/25 Range/Units 03:08 POC Glucose 102 (60-115) mg/dL Discharge Plan Discharge Clinical Impression: Acute anxiety Patient Disposition: Home, Self-Care Instructions: Anxiety (ED) Additional Instructions: Continue take your medication for anxiety as prescribed and follow up with your PCP Prescriptions: No Action metoprolol succinate 50 mg tablet extended release 24 hr 50 mg PO DAILY Qty: 90 2RF valsartan 160 mg tablet 160 mg PO DAILY Qty: 90 1RF mirtazapine 45 mg Tablet 45 mg PO BEDTIME omeprazole 20 mg Tablet,Delayed Release (Dr/Ec) 20 mg PO DAILY@0630 fluticasone propionate [Flonase Allergy Relief] 50 mcg/actuation spray,suspension 2 spray intranasal DAILY Qty: 16 0RF Rx Instructions: administer into each nostril hydroxyzine HCl 25 mg tablet 25 mg PO TID PRN (Reason: anxiety) Qty: 6 0RF hydroxyzine HCl 25 mg tablet 25 mg PO TID PRN (Reason: anxiety) Qty: 20 0RF miconazole nitrate 2 % cream 1 appl topical BID Qty: 28 0RF azithromycin [Zithromax] 250 mg tablet 250 mg PO DAILY 4 Days Qty: 4 0RF Rx Instructions: start on day 2 of therapy trazodone 50 mg tablet 50 mg PO BEDTIME ferrous sulfate [FeroSul] 325 mg (65 mg iron) tablet 325 mg PO DAILY diphenhydramine HCl [Lou-Dryl] 25 mg tablet 25 mg PO BEDTIME PRN (Reason: itch) bisacodyl 5 mg tablet,delayed release (DR/EC) 5 mg PO DAILY PRN (Reason: constipation) rosuvastatin 20 mg tablet 20 mg PO BEDTIME aspirin 81 mg tablet,delayed release (DR/EC) 81 mg PO QAM multivitamin Tablet 1 tab PO QAM melatonin 10 mg tablet extended release 10 mg PO BEDTIME PRN (Reason: Insomnia) cholecalciferol (vitamin D3) 25 mcg (1,000 unit) tablet 25 mcg PO DAILY ondansetron 4 mg tablet,disintegrating 4 mg PO Q6H PRN (Reason: nausea and vomiting) Qty: 10 0RF acetaminophen 500 mg tablet 500 mg PO Q8H PRN (Reason: pain) zolpidem 5 mg tablet 5 mg PO BEDTIME PRN (Reason: Insomnia) ipratropium bromide 21 mcg (0.03 %) spray,non-aerosol 2 spray intranasal BID clonazepam 0.5 mg Tablet 0.5 mg PO TID Qty: 180 0RF gabapentin 100 mg Capsule 100 mg PO TID Qty: 180 0RF nitrofurantoin monohyd/m-cryst [Macrobid] 100 mg capsule 100 mg PO Q12H 3 Days Qty: 6 0RF Rx Instructions: must administer with a meal/food miconazole nitrate [Monistat 7] 2 % cream 1 appful vaginal BEDTIME 7 Days Qty: 45 0RF ofloxacin 0.3 % drops 10 drp otic (ears) DAILY 7 Days Qty: 5 0RF docusate sodium [Col-Rite] 100 mg capsule 200 mg PO BID Qty: 30 0RF polyethylene glycol 3350 [ClearLax] 17 gram/dose powder 17 g PO Q8H Qty: 238 0RF Advanced Healing (Petrolatum) 41 % ointment 1 appl topical BID PRN (Reason: irritated skin) Qty: 50 0RF docusate sodium [Colace] 100 mg capsule 200 mg PO BID Qty: 20 0RF polyethylene glycol 3350 [Miralax] 17 gram/dose powder 17 g PO BID Qty: 119 0RF simethicone 180 mg capsule 180 mg PO BID PRN (Reason: abdominal distention) Qty: 14 0RF sertraline 100 mg tablet 100 mg PO DAILY amlodipine 10 mg tablet 10 mg PO DAILY meclizine 25 mg tablet 25 mg PO DAILY PRN Interventions: ED Discharge Assessment Last Done: 04/12/25 06:07 Discharge Date/Time: 04/12/25 06:08 Print Language: Puerto Rican
[2025-04-12] MEDS: clonazePAM 0.5 MG TABLET PO (04:09)
[2025-04-12 06:07] VITALS: BP 129/63; PULSE 89; RESP 16; TEMP 36.6; O2SAT 98
== END 2025-04-12 06:08 | disposition home or self-care (01) ==
PROVIDERS: Emergency Provider Internal Medicine
DX: F41.9 Anxiety disorder, unspecified (principal); I10 Essential (primary) hypertension; Z79.899 Other long term (current) drug therapy
CPT/HCPCS: 82947; 99283; 99284

== ENCOUNTER 2025-04-14 23:07 | Emergency (ER) | payer OTHER, SELFPAY ==
[2025-04-14 23:15] VITALS: BP 124/70; PULSE 80; PULSE 84; RESP 20; TEMP 36.1; O2SAT 98; O2SAT 99; BMI 28.0
[2025-04-15 00:01] LABS: IDNOW Serial# 55D5AD1C; Strep A Nucleic Acid Negative (Negative)
[2025-04-15 00:16] LABS: Influenza A PCR NEGATIVE (Negative); Influenza B PCR NEGATIVE (Negative); Resp Syncy Virus RNA Qual PCR NEGATIVE (Negative); SARS COV2 PCR INHOUSE NEGATIVE (Negative)
--- OUTSIDE RECORDS SUMMARY | 2025-04-15 00:44 | XMS_ITS | Encounter Summary ---
Author Organization [employer] Address [address] [place] [address] Care Team Providers Care Clinical Researcher Name Role Phone Name, Nitin PIKE Primary Care Provider [phone] Reason for Visit * Reason Onset Date Comments Med Refill 11/08/2024 Encounter Details Date Type Department Care Team ([facility] st Contact Info) Description 11/08/2024 Telephone [facility] [address] [place], [place] [id number] Name, MD Nitin [address] [place] [address] Med Refill Social History Tobacco Use Types [...] 5 MG tablet To be sent to: [facility] - [place], [place] - [address] documented in this encounter Plan of Treatment Upcoming Encounters Date Type Department Care Team ([facility] st Contact Info) Description 04/29/2025 10:00 AM EDT Office Visit [facility] [address] [place] [address] Name, MD Nitin [address] [place] [address] documented as of this encounter Visit Diagnoses Not on filedocumented in this encounter Additional Health Concerns Assessment Noted Time PHQ-9 Depression Total Score: 6 02/13/20 24 9:14 AM EDT documented as of this encounter Care Teams Clinical Researcher Relationship Specialty Start Date End Date Name, MD Nitin [address] [place] [address] PCP - General Family Medicine 08/26/17 [facility] 09/01/24 documented as of this encounter
--- NOTE | 2025-04-15 01:02 | ED.GENADULT ---
HPI - General Adult General Chief complaint: General Medical Stated complaint: SLIGHT BURNING THROAT AND NOSE Time Seen by Provider: 04/14/25 23:25 Source: patient Mode of arrival: ambulatory Limitations: no limitations History of Present Illness ED Provider: Dr. Marta Briscoe HPI narrative: Patient comes to the emergency room complaining of anxiety. Patient states that her prescriber is not sending the medications to the pharmacy. Patient requesting a dose of clonazepam. Patient also reported mild sore throat, denies any fever chills, no difficulty swallowing. Related Data Home Medications ?Medication ?Instructions ?Recorded ?Confirmed mirtazapine 45 mg tablet 45 mg PO BEDTIME 08/09/20 03/16/25 omeprazole 20 mg tablet,delayed 20 mg PO DAILY@0630 08/09/20 03/16/25 release aspirin 81 mg tablet,delayed 81 mg PO QAM 01/28/24 03/16/25 release bisacodyl 5 mg tablet,delayed 5 mg PO DAILY PRN constipation 01/28/24 03/16/25 release diphenhydramine HCl 25 mg tablet 25 mg PO BEDTIME PRN itch 01/28/24 03/16/25 (Lou-Dryl) ferrous sulfate 325 mg (65 mg 325 mg PO DAILY 01/28/24 03/16/25 iron) tablet (FeroSul) melatonin 10 mg tablet,extended 10 mg PO BEDTIME PRN Insomnia 01/28/24 03/16/25 release multivitamin 1 tab PO QAM 01/28/24 03/16/25 rosuvastatin 20 mg tablet 20 mg PO BEDTIME 01/28/24 03/16/25 trazodone 50 mg tablet 50 mg PO BEDTIME 01/28/24 03/16/25 amlodipine 10 mg tablet 10 mg PO DAILY 02/09/24 03/16/25 acetaminophen 500 mg tablet 500 mg PO Q8H PRN pain 08/09/24 03/16/25 ipratropium bromide 21 mcg (0.03 2 spray intranasal BID 08/09/24 03/16/25 %) nasal spray zolpidem 5 mg tablet 5 mg PO BEDTIME PRN Insomnia 08/09/24 03/16/25 cholecalciferol (vitamin D3) 25 25 mcg PO DAILY 08/20/24 03/16/25 mcg (1,000 unit) tablet meclizine 25 mg tablet 25 mg PO DAILY PRN 09/29/24 03/16/25 sertraline 100 mg tablet 100 mg PO DAILY 03/16/25 03/16/25 Previous Rx's ?Medication ?Instructions ?Recorded metoprolol succinate 50 mg 50 mg PO DAILY #90 tabs 09/28/20 tablet,extended release 24 hr fluticasone propionate 50 2 spray intranasal DAILY #16 grams 09/16/23 mcg/actuation nasal spray,suspension (Flonase Allergy Relief) ondansetron 4 mg disintegrating 4 mg PO Q6H PRN nausea and 04/28/24 tablet vomiting #10 tabs hydroxyzine HCl 25 mg tablet 25 mg PO TID PRN anxiety #6 tabs 08/07/24 clonazepam 0.5 mg tablet 0.5 mg PO TID #180 tabs 08/10/24 gabapentin 100 mg capsule 100 mg PO TID #180 caps 08/10/24 hydroxyzine HCl 25 mg tablet 25 mg PO TID PRN anxiety #20 tabs 09/09/24 miconazole nitrate 2 % vaginal 1 appful vaginal BEDTIME 7 days 10/09/24 cream (Monistat 7) #45 grams nitrofurantoin 100 mg PO Q12H 3 days #6 caps 10/09/24 monohydrate/macrocrystals 100 mg capsule (Macrobid) miconazole nitrate 2 % topical 1 appl topical BID #28 grams 01/01/25 cream valsartan 160 mg tablet 160 mg PO DAILY #90 tabs 01/20/25 ofloxacin 0.3 % ear drops 10 drp otic (ears) DAILY 7 days #5 02/01/25 mL docusate sodium 100 mg capsule 200 mg (2 x 100 mg) PO BID #30 caps 02/07/25 (Col-Rite) polyethylene glycol 3350 17 17 g PO Q8H #238 grams 02/07/25 gram/dose oral powder (ClearLax) white petrolatum 41 % topical 1 appl topical BID PRN irritated 02/07/25 ointment (Advanced Healing skin #50 grams (Petrolatum)) azithromycin 250 mg tablet 250 mg PO DAILY 4 days #4 tabs 02/14/25 (Zithromax) docusate sodium 100 mg capsule 200 mg (2 x 100 mg) PO BID #20 caps 02/24/25 (Colace) polyethylene glycol 3350 17 17 g PO BID #119 grams 02/24/25 gram/dose oral powder (Miralax) simethicone 180 mg capsule 180 mg PO BID PRN abdominal 03/03/25 distention #14 caps Allergies Allergy/AdvReac Type Severity Reaction Status Date / Time penicillin G [Penicillin G] Allergy Severe ITCHY/RASH Verified 04/14/25 23:17 Sulfa (Sulfonamide Allergy Severe ITCHY,RASH, Verified 04/14/25 23:17 Antibiotics) rash [Sulfa (Sulfonamides)] trimethoprim [From Bactrim] Allergy Severe HIVES Verified 04/14/25 23:17 Penicillins Allergy Intermediate Hives Verified 04/14/25 23:17 sulfamethoxazole Allergy Mild Hives Verified 04/14/25 23:17 [From Bactrim] Review of Systems Review of Systems: Constitutional : No Weight loss, No Fever, No Chills, No Night Sweats, No Fatigue, No Malaise ENT/Mouth : No Hearing loss, No Ear Pain, No Nasal Congestion, No Sinus Pain, No Hoarseness, complaining of mild sore throat, No Rhinorrhea, No Swallowing Difficulty Eyes: No Eye Pain, No Swelling, No Redness, No Foreign Body, No Discharge, No Vision Changes Cardiovascular : No Chest Pain, No SOB, No Dyspnea on Exertion, No Orthopnea, No Edema, No Palpitations Respiratory : No Cough, No Sputum, No Wheezing, No Smoke Exposure, No Dyspnea Gastrointestinal : No Nausea, No Vomiting, No Diarrhea, No Constipation, No abdominal Pain, No Hematochezia, No Melena Genitourinary : no irregular bleeding, No Dysuria, No Urinary Frequency, No Hematuria, No Urinary Incontinence, No Urgency, No Flank Pain, No Urinary Flow Changes, No Hesitancy Musculoskeletal : No joint pain, No Myalgias, No Joint Swelling Skin : No Skin Lesions, No rash Neuro : No Weakness, No Numbness, No Paresthesias, No Loss of Consciousness, No Dizziness, No Headache Psych : Complaining of anxiety and a panic attack, No Depression, No SI/HI/AH/VH, No Social Issues, Heme/Lymph: No Bruising, No Bleeding,No Lymphadenopathy Endocrine : No Polyuria, No Polydipsia, No Temperature Intolerance PMFSH Past Medical History 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 Oriented X3. No acute distress. Eyes: Pupils equal, round and reactive to light. ENT: Pharynx normal, no erythema, no swollen tonsils, palatine palate do not show any swelling erythema or phlegm it is, posterior oropharynx within normal limits. Uvula at baseline Neck: Normal inspection. Neck supple. No lymph nodes noted. No crepitus CVS: Normal heart rate and rhythm. Pulses normal. Normal S1 and S2 Respiratory: No respiratory distress. Breath sounds normal. No Wheezing. No rales Abdomen: Soft and nontender. No rigidity. No distention. Skin: Skin warm and dry. Normal skin color. Normal skin turgor. Extremities: No lower extremity edema. No Lacerations. No Rash Neuro: Oriented X 3. No motor deficit. No sensory deficit. Moving all extremities. No slurred speech. CN 2 through 12 grossly intact Psych: calm, cooperative, normal affect Medical Decision Making Medical Decision Making MDM Narrative: patient's serology test negative patient requesting: No pain, I discussed with the patient that we can give her a dose of hydroxyzine. I also discussed with the patient that I will not give her a prescription for Klonopin, she needs to discuss this with her prescriber. Lab Data Labs: Lab Results 04/14/25 Range/Units 23:34 Influenza Type A (PCR) NEGATIVE (Negative) Influenza Type B (PCR) NEGATIVE (Negative) RSV RNA Qual (PCR) NEGATIVE (Negative) SARS-CoV-2 RNA (RT-PCR) NEGATIVE (Negative) S. pyogenes GrpA MYAH Negative (Negative) Discharge Plan Discharge Clinical Impression: Generalized anxiety disorder with panic attacks, Viral URI Patient Disposition: Home, Self-Care Instructions: Pharyngitis (ED), Anxiety (ED) Additional Instructions: Please follow-up with your primary care physician tomorrow. If you have any worsening or new symptoms, please return to the emergency room or call 911 Prescriptions: No Action metoprolol succinate 50 mg tablet extended release 24 hr 50 mg PO DAILY Qty: 90 2RF valsartan 160 mg tablet 160 mg PO DAILY Qty: 90 1RF mirtazapine 45 mg Tablet 45 mg PO BEDTIME omeprazole 20 mg Tablet,Delayed Release (Dr/Ec) 20 mg PO DAILY@0630 fluticasone propionate [Flonase Allergy Relief] 50 mcg/actuation spray,suspension 2 spray intranasal DAILY Qty: 16 0RF Rx Instructions: administer into each nostril hydroxyzine HCl 25 mg tablet 25 mg PO TID PRN (Reason: anxiety) Qty: 6 0RF hydroxyzine HCl 25 mg tablet 25 mg PO TID PRN (Reason: anxiety) Qty: 20 0RF miconazole nitrate 2 % cream 1 appl topical BID Qty: 28 0RF azithromycin [Zithromax] 250 mg tablet 250 mg PO DAILY 4 Days Qty: 4 0RF Rx Instructions: start on day 2 of therapy trazodone 50 mg tablet 50 mg PO BEDTIME ferrous sulfate [FeroSul] 325 mg (65 mg iron) tablet 325 mg PO DAILY diphenhydramine HCl [Lou-Dryl] 25 mg tablet 25 mg PO BEDTIME PRN (Reason: itch) bisacodyl 5 mg tablet,delayed release (DR/EC) 5 mg PO DAILY PRN (Reason: constipation) rosuvastatin 20 mg tablet 20 mg PO BEDTIME aspirin 81 mg tablet,delayed release (DR/EC) 81 mg PO QAM multivitamin Tablet 1 tab PO QAM melatonin 10 mg tablet extended release 10 mg PO BEDTIME PRN (Reason: Insomnia) cholecalciferol (vitamin D3) 25 mcg (1,000 unit) tablet 25 mcg PO DAILY ondansetron 4 mg tablet,disintegrating 4 mg PO Q6H PRN (Reason: nausea and vomiting) Qty: 10 0RF acetaminophen 500 mg tablet 500 mg PO Q8H PRN (Reason: pain) zolpidem 5 mg tablet 5 mg PO BEDTIME PRN (Reason: Insomnia) ipratropium bromide 21 mcg (0.03 %) spray,non-aerosol 2 spray intranasal BID clonazepam 0.5 mg Tablet 0.5 mg PO TID Qty: 180 0RF gabapentin 100 mg Capsule 100 mg PO TID Qty: 180 0RF nitrofurantoin monohyd/m-cryst [Macrobid] 100 mg capsule 100 mg PO Q12H 3 Days Qty: 6 0RF Rx Instructions: must administer with a meal/food miconazole nitrate [Monistat 7] 2 % cream 1 appful vaginal BEDTIME 7 Days Qty: 45 0RF ofloxacin 0.3 % drops 10 drp otic (ears) DAILY 7 Days Qty: 5 0RF docusate sodium [Col-Rite] 100 mg capsule 200 mg PO BID Qty: 30 0RF polyethylene glycol 3350 [ClearLax] 17 gram/dose powder 17 g PO Q8H Qty: 238 0RF Advanced Healing (Petrolatum) 41 % ointment 1 appl topical BID PRN (Reason: irritated skin) Qty: 50 0RF docusate sodium [Colace] 100 mg capsule 200 mg PO BID Qty: 20 0RF polyethylene glycol 3350 [Miralax] 17 gram/dose powder 17 g PO BID Qty: 119 0RF simethicone 180 mg capsule 180 mg PO BID PRN (Reason: abdominal distention) Qty: 14 0RF sertraline 100 mg tablet 100 mg PO DAILY amlodipine 10 mg tablet 10 mg PO DAILY meclizine 25 mg tablet 25 mg PO DAILY PRN Print Language: Turkish
[2025-04-15] MEDS: hydrOXYzine HCL 50 MG TABLET PO (01:06)
[2025-04-15 01:12] VITALS: BP 155/65; PULSE 72; RESP 18; TEMP 36.7; O2SAT 98
--- NOTE | 2025-04-15 01:14 | PC.NURSE ---
pt medicated per mar, reviewed discharge instructions with pt. pt verbalized understanding, pt discharge to waiting room no sign of distress.
== END 2025-04-15 02:24 | disposition home or self-care (01) ==
PROVIDERS: Emergency Provider Emergency Medicine; PCP Internal Medicine Geriatric Medicine
DX: J06.9 Acute upper respiratory infection, unspecified (principal); J02.9 Acute pharyngitis, unspecified; F41.0 Panic disorder [episodic paroxysmal anxiety]; K14.6 Glossodynia; Z79.899 Other long term (current) drug therapy; Z03.818 Encounter for observation for suspected exposure to other biological agents ruled out
CPT/HCPCS: 0241U; 87651; 99283; 99284

== ENCOUNTER 2025-04-15 02:15 | Emergency (ER) | payer OTHER, SELFPAY ==
--- NOTE | ~2025-04-15 | XR_ITS ---
CLINICAL HISTORY: fall 2 view left knee Comparison: None Findings: Old injury at the inferior patellar tendon versus exuberant findings of old [place]-Schlatter disease. Mild degenerative changes. No joint effusion. No radiopaque foreign body. Anterior patellar enthesopathy. IMPRESSION: Anterior knee soft tissue swelling. No acute fracture. This document has been electronically signed by: Atul Rubin MD on 04/15/2025 03:04:56
[2025-04-15 02:25] VITALS: BP 151/77; PULSE 77; RESP 16; TEMP 36.8; O2SAT 98; BMI 28.0
--- NOTE | 2025-04-15 04:14 | ED_ITS ---
HPI - Fall General Chief Complaint: Fall Stated Complaint: fall Time Seen by Provider: 04/15/25 04:12 Source: patient Mode of arrival: wheelchair Limitations: no limitations History of Present Illness ED Provider: Dr. Marta Briscoe HPI Narrative: Patient was discharged from the hospital a couple of minutes ago. Patient was seen here for anxiety. This time, patient states that after she got discharged, she saw an ambulance go by and was running behind them to ask them for a ride home. However, patient tripped over a speed bump in the parking lot and fell. Patient states that her left knee hurts, states that she did not hit her head, denies taking any blood thinners. Related Data Home Medications ?Medication ?Instructions ?Recorded ?Confirmed mirtazapine 45 mg tablet 45 mg PO BEDTIME 08/09/20 03/16/25 omeprazole 20 mg tablet,delayed 20 mg PO DAILY@0630 08/09/20 03/16/25 release aspirin 81 mg tablet,delayed 81 mg PO QAM 01/28/24 03/16/25 release bisacodyl 5 mg tablet,delayed 5 mg PO DAILY PRN constipation 01/28/24 03/16/25 release diphenhydramine HCl 25 mg tablet 25 mg PO BEDTIME PRN itch 01/28/24 03/16/25 (Lou-Dryl) ferrous sulfate 325 mg (65 mg 325 mg PO DAILY 01/28/24 03/16/25 iron) tablet (FeroSul) melatonin 10 mg tablet,extended 10 mg PO BEDTIME PRN Insomnia 01/28/24 03/16/25 release multivitamin 1 tab PO QAM 01/28/24 03/16/25 rosuvastatin 20 mg tablet 20 mg PO BEDTIME 01/28/24 03/16/25 trazodone 50 mg tablet 50 mg PO BEDTIME 01/28/24 03/16/25 amlodipine 10 mg tablet 10 mg PO DAILY 02/09/24 03/16/25 acetaminophen 500 mg tablet 500 mg PO Q8H PRN pain 08/09/24 03/16/25 ipratropium bromide 21 mcg (0.03 2 spray intranasal BID 08/09/24 03/16/25 %) nasal spray zolpidem 5 mg tablet 5 mg PO BEDTIME PRN Insomnia 08/09/24 03/16/25 cholecalciferol (vitamin D3) 25 25 mcg PO DAILY 08/20/24 03/16/25 mcg (1,000 unit) tablet meclizine 25 mg tablet 25 mg PO DAILY PRN 09/29/24 03/16/25 sertraline 100 mg tablet 100 mg PO DAILY 03/16/25 03/16/25 Previous Rx's ?Medication ?Instructions ?Recorded metoprolol succinate 50 mg 50 mg PO DAILY #90 tabs 09/28/20 tablet,extended release 24 hr fluticasone propionate 50 2 spray intranasal DAILY #16 grams 09/16/23 mcg/actuation nasal spray,suspension (Flonase Allergy Relief) ondansetron 4 mg disintegrating 4 mg PO Q6H PRN nausea and 04/28/24 tablet vomiting #10 tabs hydroxyzine HCl 25 mg tablet 25 mg PO TID PRN anxiety #6 tabs 08/07/24 clonazepam 0.5 mg tablet 0.5 mg PO TID #180 tabs 08/10/24 gabapentin 100 mg capsule 100 mg PO TID #180 caps 08/10/24 hydroxyzine HCl 25 mg tablet 25 mg PO TID PRN anxiety #20 tabs 09/09/24 miconazole nitrate 2 % vaginal 1 appful vaginal BEDTIME 7 days 10/09/24 cream (Monistat 7) #45 grams nitrofurantoin 100 mg PO Q12H 3 days #6 caps 10/09/24 monohydrate/macrocrystals 100 mg capsule (Macrobid) miconazole nitrate 2 % topical 1 appl topical BID #28 grams 01/01/25 cream valsartan 160 mg tablet 160 mg PO DAILY #90 tabs 01/20/25 ofloxacin 0.3 % ear drops 10 drp otic (ears) DAILY 7 days #5 02/01/25 mL docusate sodium 100 mg capsule 200 mg (2 x 100 mg) PO BID #30 caps 02/07/25 (Col-Rite) polyethylene glycol 3350 17 17 g PO Q8H #238 grams 02/07/25 gram/dose oral powder (ClearLax) white petrolatum 41 % topical 1 appl topical BID PRN irritated 02/07/25 ointment (Advanced Healing skin #50 grams (Petrolatum)) azithromycin 250 mg tablet 250 mg PO DAILY 4 days #4 tabs 02/14/25 (Zithromax) docusate sodium 100 mg capsule 200 mg (2 x 100 mg) PO BID #20 caps 02/24/25 (Colace) polyethylene glycol 3350 17 17 g PO BID #119 grams 02/24/25 gram/dose oral powder (Miralax) simethicone 180 mg capsule 180 mg PO BID PRN abdominal 03/03/25 distention #14 caps Allergies Allergy/AdvReac Type Severity Reaction Status Date / Time penicillin G [Penicillin G] Allergy Severe ITCHY/RASH Verified 04/15/25 02:27 Sulfa (Sulfonamide Allergy Severe ITCHY,RASH, Verified 04/15/25 02:27 Antibiotics) rash [Sulfa (Sulfonamides)] trimethoprim [From Bactrim] Allergy Severe HIVES Verified 04/15/25 02:27 Penicillins Allergy Intermediate Hives Verified 04/15/25 02:27 sulfamethoxazole Allergy Mild Hives Verified 04/15/25 02:27 [From Bactrim] Review of Systems Review of Systems: Constitutional : No Weight loss, No Fever, No Chills, No Night Sweats, No Fatigue, No Malaise ENT/Mouth : No Hearing loss, No Ear Pain, No Nasal Congestion, No Sinus Pain, No Hoarseness, No sore throat, No Rhinorrhea, No Swallowing Difficulty Eyes: No Eye Pain, No Swelling, No Redness, No Foreign Body, No Discharge, No Vision Changes Cardiovascular : No Chest Pain, No SOB, No Dyspnea on Exertion, No Orthopnea, No Edema, No Palpitations Respiratory : No Cough, No Sputum, No Wheezing, No Smoke Exposure, No Dyspnea Gastrointestinal : No Nausea, No Vomiting, No Diarrhea, No Constipation, No abdominal Pain, No Hematochezia, No Melena Genitourinary : no irregular bleeding, No Dysuria, No Urinary Frequency, No Hematuria, No Urinary Incontinence, No Urgency, No Flank Pain, No Urinary Flow Changes, No Hesitancy Musculoskeletal : complaining of left knee pain No Myalgias, No Joint Swelling Skin : No Skin Lesions, No rash Neuro : No Weakness, No Numbness, No Paresthesias, No Loss of Consciousness, No Dizziness, No Headache Psych : at this time patient no longer anxious,, No Depression, No SI/HI/AH/VH, No Social Issues, Heme/Lymph: No Bruising, No Bleeding,No Lymphadenopathy Endocrine : No Polyuria, No Polydipsia, No Temperature Intolerance [facility] Past Medical History 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 Oriented X3. No acute distress. Eyes: Pupils equal, round and reactive to light. ENT: Pharynx normal. Neck: Normal inspection. Neck supple. No lymph nodes noted. No crepitus CVS: Normal heart rate and rhythm. Pulses normal. Normal S1 and S2 Respiratory: No respiratory distress. Breath sounds normal. No Wheezing. No rales Abdomen: Soft and nontender. No rigidity. No distention. Skin: Skin warm and dry. Normal skin color. Normal skin turgor. patient has a very superficial scrape to the right knee Extremities: No lower extremity edema. No Lacerations. No Rash Neuro: Oriented X 3. No motor deficit. No sensory deficit. Moving all extremities. No slurred speech. CN 2 through 12 grossly intact Psych: calm, cooperative, normal affect Medical Decision Making Medical Decision Making MDM Narrative: x-rays of the knee did not show any acute abnormality. Patient states that she feels well and would like to be discharged home Independent Interpretation I performed an independent interpretation of an: Plain X-Ray Radiology Impression Discussion of test interpretation with radiology: I have reviewed the radiologist's reading. Radiologist Impression: Old injury at the inferior patellar tendon versus exuberant findings of old [place]-Schlatter disease. Mild degenerative changes. No joint effusion. No radiopaque foreign body. Anterior patellar enthesopathy. IMPRESSION: Anterior knee soft tissue swelling. No acute fracture Discharge Plan Discharge Clinical Impression: Contusion of knee, left Patient Disposition: Home, Self-Care Instructions: Contusion in Adults (ED) Additional Instructions: Please follow-up with your primary care physician tomorrow. If you have any worsening or new symptoms, please return to the emergency room or call 911 Prescriptions: No Action metoprolol succinate 50 mg tablet extended release 24 hr 50 mg PO DAILY Qty: 90 2RF valsartan 160 mg tablet 160 mg PO DAILY Qty: 90 1RF mirtazapine 45 mg Tablet 45 mg PO BEDTIME omeprazole 20 mg Tablet,Delayed Release (Dr/Ec) 20 mg PO DAILY@0630 fluticasone propionate [Flonase Allergy Relief] 50 mcg/actuation spray,suspension 2 spray intranasal DAILY Qty: 16 0RF Rx Instructions: administer into each nostril hydroxyzine HCl 25 mg tablet 25 mg PO TID PRN (Reason: anxiety) Qty: 6 0RF hydroxyzine HCl 25 mg tablet 25 mg PO TID PRN (Reason: anxiety) Qty: 20 0RF miconazole nitrate 2 % cream 1 appl topical BID Qty: 28 0RF azithromycin [Zithromax] 250 mg tablet 250 mg PO DAILY 4 Days Qty: 4 0RF Rx Instructions: start on day 2 of therapy trazodone 50 mg tablet 50 mg PO BEDTIME ferrous sulfate [FeroSul] 325 mg (65 mg iron) tablet 325 mg PO DAILY diphenhydramine HCl [Lou-Dryl] 25 mg tablet 25 mg PO BEDTIME PRN (Reason: itch) bisacodyl 5 mg tablet,delayed release (DR/EC) 5 mg PO DAILY PRN (Reason: constipation) rosuvastatin 20 mg tablet 20 mg PO BEDTIME aspirin 81 mg tablet,delayed release (DR/EC) 81 mg PO QAM multivitamin Tablet 1 tab PO QAM melatonin 10 mg tablet extended release 10 mg PO BEDTIME PRN (Reason: Insomnia) cholecalciferol (vitamin D3) 25 mcg (1,000 unit) tablet 25 mcg PO DAILY ondansetron 4 mg tablet,disintegrating 4 mg PO Q6H PRN (Reason: nausea and vomiting) Qty: 10 0RF acetaminophen 500 mg tablet 500 mg PO Q8H PRN (Reason: pain) zolpidem 5 mg tablet 5 mg PO BEDTIME PRN (Reason: Insomnia) ipratropium bromide 21 mcg (0.03 %) spray,non-aerosol 2 spray intranasal BID clonazepam 0.5 mg Tablet 0.5 mg PO TID Qty: 180 0RF gabapentin 100 mg Capsule 100 mg PO TID Qty: 180 0RF nitrofurantoin monohyd/m-cryst [Macrobid] 100 mg capsule 100 mg PO Q12H 3 Days Qty: 6 0RF Rx Instructions: must administer with a meal/food miconazole nitrate [Monistat 7] 2 % cream 1 appful vaginal BEDTIME 7 Days Qty: 45 0RF ofloxacin 0.3 % drops 10 drp otic (ears) DAILY 7 Days Qty: 5 0RF docusate sodium [Col-Rite] 100 mg capsule 200 mg PO BID Qty: 30 0RF polyethylene glycol 3350 [ClearLax] 17 gram/dose powder 17 g PO Q8H Qty: 238 0RF Advanced Healing (Petrolatum) 41 % ointment 1 appl topical BID PRN (Reason: irritated skin) Qty: 50 0RF docusate sodium [Colace] 100 mg capsule 200 mg PO BID Qty: 20 0RF polyethylene glycol 3350 [Miralax] 17 gram/dose powder 17 g PO BID Qty: 119 0RF simethicone 180 mg capsule 180 mg PO BID PRN (Reason: abdominal distention) Qty: 14 0RF sertraline 100 mg tablet 100 mg PO DAILY amlodipine 10 mg tablet 10 mg PO DAILY meclizine 25 mg tablet 25 mg PO DAILY PRN Print Language: Dominican
[2025-04-15 05:38] VITALS: BP 125/48; PULSE 77; RESP 20; O2SAT 96
[2025-04-15 05:54] VITALS: BP 136/63; PULSE 74
== END 2025-04-15 06:00 | disposition home or self-care (01) ==
PROVIDERS: Emergency Provider Emergency Medicine; PCP Internal Medicine Geriatric Medicine
DX: S80.02XA Contusion of left knee, initial encounter (principal); M79.605 Pain in left leg; W01.0XXA Fall on same level from slipping, tripping and stumbling without subsequent striking against object, initial encounter; Y93.01 Activity, walking, marching and hiking; Y92.481 Parking lot as the place of occurrence of the external cause; Y99.8 Other external cause status; Z79.899 Other long term (current) drug therapy
CPT/HCPCS: 73560; 99283

== ENCOUNTER → 2025-04-15 02:40 | Outpatient (BNV) | payer OTHER, SELFPAY | PROVIDERS: PCP Internal Medicine Geriatric Medicine; Visit Provider Radiology Diagnostic Radiology | DX: R22.42 Localized swelling, mass and lump, left lower limb (principal) | CPT/HCPCS: 73560 ==

== ENCOUNTER 2025-04-16 22:26 | Emergency (ER) | payer OTHER, SELFPAY ==
[2025-04-16 22:29] VITALS: BP 136/72; PULSE 77; O2SAT 97
[2025-04-16 22:33] VITALS: BP 127/57; PULSE 80; RESP 16; TEMP 36.6; O2SAT 95; BMI 28.0
[2025-04-16 23:00] LABS: MANUAL DIFF FLAG NO
[2025-04-16 23:02] LABS: Basophils Absolute Auto 0.1 X10*3/uL (0.0-0.2); Basophils Percent Auto 0.7 % (0-2); Eosinophils Absolute Auto 0.1 X10*3/uL (0.0-0.4); Eosinophils Percent Auto 0.9 % (0-4); Hematocrit 34.7 % (37.0-47.0); Hemoglobin 11.9 g/dl (12.0-16.0); Imm Gran Abs Auto 0.03 X10*3/uL (0.00-0.03); Imm Gran Pct Auto 0.4 % (0.0-0.4); Lymphocytes Absolute Auto 1.6 X10*3/uL (1.2-4.9); Lymphocytes Percent Auto 22.6 % (20-40); Mean Corpuscular HGB Conc 34.3 g/dl (31.0-35.0); Mean Corpuscular Hemoglobin 28.3 pg (27.0-33.0); Mean Corpuscular Volume 82.4 fL (80.0-98.0); Mean Platelet Volume 8.4 fL (9.4-12.3); Monocytes Absolute Auto 0.6 X10*3/uL (0.1-1.2); Monocytes Percent Auto 8.9 % (2-11); Neutrophils Absolute Auto 4.7 x10*3/uL (2.0-8.3); Neutrophils Percent Auto 66.5 % (45-73); Platelet Count 268 X10*3/uL (160-400); Red Blood Count 4.21 X10*6/uL (4.20-5.50); Red Cell Distribution Width 13.8 % (11.0-16.0)
[2025-04-16 23:19] LABS: Alanine Aminotransferase 18 U/L (0-31); Albumin Level 4.5 g/dL (3.5-5.0); Alkaline Phosphatase 72 U/L (39-117); Anion Gap 12 (12-20); Aspartate Amino Transferase 27 U/L (5-31); Bilirubin Total 0.4 mg/dL (0.0-1.0); Blood Urea Nitrogen 23 mg/dL (9-16); Calcium 9.5 mg/dL (8.4-10.2); Carbon Dioxide 27 mmol/L (22-29); Chloride 100 mmol/L (96-108); Creatinine Clr Calc Pharmacy 46.2; Estimated Glomerular Filt Rate 49; Glucose Random 129 mg/dL (60-115); Potassium 4.2 mmol/L (3.3-5.1); Sodium 135 mmol/L (135-145); Total Protein 8.1 g/dL (6.5-8.0)
--- OUTSIDE RECORDS SUMMARY | 2025-04-17 01:23 | XMS_ITS | Encounter Summary ---
Author Organization [employer] Address [address] [place] [address] Care Team Providers Care Patching Machine Operator Name Role Phone Name, Nitin PIKE Primary Care Provider [phone] Reason for Visit * Reason Onset Date Comments Med Refill 11/08/2024 Encounter Details Date Type Department Care Team ([facility] st Contact Info) Description 11/08/2024 Telephone [facility] [address] [place], [place] [phone] Name, MD Nitin [address] [place] [address] Med Refill Social History Tobacco Use Types [...] 5 MG tablet To be sent to: [facility] - [place], [place] - [address] [facility] documented in this encounter Plan of Treatment Upcoming Encounters Date Type Department Care Team ([facility] st Contact Info) Description 04/29/2025 10:00 AM EDT Office Visit [facility] [address] [place] [address] Name, MD Nitin [address] [place] [address] documented as of this encounter Visit Diagnoses Not on filedocumented in this encounter Additional Health Concerns Assessment Noted Time PHQ-9 Depression Total Score: 6 02/13/20 24 9:14 AM EDT documented as of this encounter Care Teams Patching Machine Operator Relationship Specialty Start Date End Date Name, MD Nitin [address] [place] [address] PCP - General Family Medicine 08/26/17 [facility] 09/01/24 documented as of this encounter
[2025-04-17] MEDS: clonazePAM 0.5 MG TABLET PO (02:43)
[2025-04-17 03:08] VITALS: BP 132/78; PULSE 80; RESP 17; TEMP 36.9; O2SAT 100
[2025-04-17 03:09] VITALS: BP 132/78; PULSE 80; RESP 17; TEMP 36.9; O2SAT 100
--- NOTE | 2025-04-19 01:52 | ED.ANXIETY ---
HPI - Anxiety General Chief Complaint: Anxiety Stated Complaint: ANXIETY, HTN PER EMS Time Seen by Provider: 04/17/25 02:04 Source: patient Mode of arrival: ambulatory Limitations: no limitations History of Present Illness ED Provider: HPI narrative: Patient's history of anxiety with frequent ED visits does not have her Klonopin today and could not get the refill for as provider is out of town will be able to get the prescription only in 4 days Related Data Home Medications ?Medication ?Instructions ?Recorded ?Confirmed mirtazapine 45 mg tablet 45 mg PO BEDTIME 08/09/20 03/16/25 omeprazole 20 mg tablet,delayed 20 mg PO DAILY@0630 08/09/20 03/16/25 release aspirin 81 mg tablet,delayed 81 mg PO QAM 01/28/24 03/16/25 release bisacodyl 5 mg tablet,delayed 5 mg PO DAILY PRN constipation 01/28/24 03/16/25 release diphenhydramine HCl 25 mg tablet 25 mg PO BEDTIME PRN itch 01/28/24 03/16/25 (Lou-Dryl) ferrous sulfate 325 mg (65 mg 325 mg PO DAILY 01/28/24 03/16/25 iron) tablet (FeroSul) melatonin 10 mg tablet,extended 10 mg PO BEDTIME PRN Insomnia 01/28/24 03/16/25 release multivitamin 1 tab PO QAM 01/28/24 03/16/25 rosuvastatin 20 mg tablet 20 mg PO BEDTIME 01/28/24 03/16/25 trazodone 50 mg tablet 50 mg PO BEDTIME 01/28/24 03/16/25 amlodipine 10 mg tablet 10 mg PO DAILY 02/09/24 03/16/25 acetaminophen 500 mg tablet 500 mg PO Q8H PRN pain 08/09/24 03/16/25 ipratropium bromide 21 mcg (0.03 2 spray intranasal BID 08/09/24 03/16/25 %) nasal spray zolpidem 5 mg tablet 5 mg PO BEDTIME PRN Insomnia 08/09/24 03/16/25 cholecalciferol (vitamin D3) 25 25 mcg PO DAILY 08/20/24 03/16/25 mcg (1,000 unit) tablet meclizine 25 mg tablet 25 mg PO DAILY PRN 09/29/24 03/16/25 sertraline 100 mg tablet 100 mg PO DAILY 03/16/25 03/16/25 Previous Rx's ?Medication ?Instructions ?Recorded metoprolol succinate 50 mg 50 mg PO DAILY #90 tabs 09/28/20 tablet,extended release 24 hr fluticasone propionate 50 2 spray intranasal DAILY #16 grams 09/16/23 mcg/actuation nasal spray,suspension (Flonase Allergy Relief) ondansetron 4 mg disintegrating 4 mg PO Q6H PRN nausea and 04/28/24 tablet vomiting #10 tabs hydroxyzine HCl 25 mg tablet 25 mg PO TID PRN anxiety #6 tabs 08/07/24 clonazepam 0.5 mg tablet 0.5 mg PO TID #180 tabs 08/10/24 gabapentin 100 mg capsule 100 mg PO TID #180 caps 08/10/24 hydroxyzine HCl 25 mg tablet 25 mg PO TID PRN anxiety #20 tabs 09/09/24 miconazole nitrate 2 % vaginal 1 appful vaginal BEDTIME 7 days 10/09/24 cream (Monistat 7) #45 grams nitrofurantoin 100 mg PO Q12H 3 days #6 caps 10/09/24 monohydrate/macrocrystals 100 mg capsule (Macrobid) miconazole nitrate 2 % topical 1 appl topical BID #28 grams 01/01/25 cream valsartan 160 mg tablet 160 mg PO DAILY #90 tabs 01/20/25 ofloxacin 0.3 % ear drops 10 drp otic (ears) DAILY 7 days #5 02/01/25 mL docusate sodium 100 mg capsule 200 mg (2 x 100 mg) PO BID #30 caps 02/07/25 (Col-Rite) polyethylene glycol 3350 17 17 g PO Q8H #238 grams 02/07/25 gram/dose oral powder (ClearLax) white petrolatum 41 % topical 1 appl topical BID PRN irritated 02/07/25 ointment (Advanced Healing skin #50 grams (Petrolatum)) azithromycin 250 mg tablet 250 mg PO DAILY 4 days #4 tabs 02/14/25 (Zithromax) docusate sodium 100 mg capsule 200 mg (2 x 100 mg) PO BID #20 caps 02/24/25 (Colace) polyethylene glycol 3350 17 17 g PO BID #119 grams 02/24/25 gram/dose oral powder (Miralax) simethicone 180 mg capsule 180 mg PO BID PRN abdominal 03/03/25 distention #14 caps clonazepam 0.5 mg tablet 0.5 mg PO DAILY #4 tabs 04/17/25 Allergies Allergy/AdvReac Type Severity Reaction Status Date / Time penicillin G [Penicillin G] Allergy Severe ITCHY/RASH Verified 04/17/25 19:07 Sulfa (Sulfonamide Allergy Severe ITCHY,RASH, Verified 04/17/25 19:07 Antibiotics) rash [Sulfa (Sulfonamides)] trimethoprim [From Bactrim] Allergy Severe HIVES Verified 04/17/25 19:07 Penicillins Allergy Intermediate Hives Verified 04/17/25 19:07 sulfamethoxazole Allergy Mild Hives Verified 04/17/25 19:07 [From Bactrim] Review of Systems Review of Systems: Yes all other systems are reviewed and are negative PMFSH Past Medical History 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 or 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) Unable to assess alcohol history related to: Unknown Alcohol intake: never Patient Tobacco Use Status: Never used Tobacco Smoked in Last 30 Days: No Use of substances other than those prescribed or required for medical reasons: No Advance Directives: Yes Advance Directives on File: Yes Advance Directives Date on File: 01/28/24 service: No Physical Exam Vital Signs: Vital Signs: Last Vital Signs Temp 98.4 F 04/17/25 03:09 Pulse 80 04/17/25 03:09 Resp 17 04/17/25 03:09 BP 132/78 04/17/25 03:09 Pulse Ox 100 04/17/25 03:09 O2 Del Method Room Air 04/17/25 03:09 BMI result Body Mass Index 28.0 Appearance: Alert. Oriented X3. No acute distress. Very anxious Eyes: no pallor or icterus ENT: Pharynx normal Oral Mucosa moist tympanic membrane intact no erythema, Neck: Normal inspection. Neck supple. CVS: Normal heart rate and rhythm. Pulses normal. Respiratory: No respiratory distress. Equal air entry bilateral, no wheezing/rales/rhonchi Abd: soft, not tender Skin: Skin warm and dry. Normal skin color. Normal skin turgor. Extremities: No lower extremity edema, no calf tenderness Neuro: Oriented X 3. Medications Administered Discontinued Medications Generic Name Dose Route Start Last Admin Trade Name Freq PRN Reason Stop Dose Admin Clonazepam 0.5 mg 04/17/25 02:18 04/17/25 02:43 Clonazepam 0.5 Mg Tablet PO 04/17/25 02:19 0.5 mg ONCE ONE Administration Medical Decision Making Medical Decision Making [facility] Narrative: Patient's anxiety on Klonopin unable to get her prescription filled for next 4 days will give her prescription will give a dose in the ER advised to follow up with her psychiatrist Lab Data 04/16/25 22:53 04/16/25 22:53 Labs: Lab Results 04/16/25 Range/Units 22:53 WBC 7.0 (4.8-10.8) X10*3/uL RBC 4.21 (4.20-5.50) X10*6/uL Hgb 11.9 L (12.0-16.0) g/dl Hct 34.7 L (37.0-47.0) % MCV 82.4 (80.0-98.0) fL MCH 28.3 (27.0-33.0) pg MCHC 34.3 (31.0-35.0) g/dl RDW 13.8 (11.0-16.0) % Plt Count 268 (160-400) X10*3/uL MPV 8.4 L (9.4-12.3) fL Immature Gran % (Auto) 0.4 (0.0-0.4) % Neut % (Auto) 66.5 (45-73) % Lymph % (Auto) 22.6 (20-40) % [place] % (Auto) 8.9 (2-11) % Eos % (Auto) 0.9 (0-4) % Baso % (Auto) 0.7 (0-2) % Lymph # (Auto) 1.6 (1.2-4.9) X10*3/uL [place] # (Auto) 0.6 (0.1-1.2) X10*3/uL Eos # (Auto) 0.1 (0.0-0.4) X10*3/uL Baso # (Auto) 0.1 (0.0-0.2) X10*3/uL Abs Immat Gran (auto) 0.03 (0.00-0.03) X10*3/uL Absolute Neuts (auto) 4.7 (2.0-8.3) x10*3/uL Absolute Nucleated RBC 0.000 (0.0-0.012) X10*3/uL Nucleated RBC % (auto) 0.0 (0.0-0.2) /100WBC Sodium 135 (135-145) mmol/L Potassium 4.2 (3.3-5.1) mmol/L Chloride 100 (96-108) mmol/L Carbon Dioxide 27 (22-29) mmol/L Anion Gap 12 (12-20) BUN 23 H (9-16) mg/dL Creatinine 1.08 (0.5-1.4) mg/dL Estim Creat Clear Calc 46.2 Estimated GFR 49 Random Glucose 129 H (60-115) mg/dL Calcium 9.5 (8.4-10.2) mg/dL Total Bilirubin 0.4 (0.0-1.0) mg/dL AST 27 (5-31) U/L ALT 18 (0-31) U/L Alkaline Phosphatase 72 (39-117) U/L Total Protein 8.1 H (6.5-8.0) g/dL Albumin 4.5 (3.5-5.0) g/dL Discharge Plan Discharge Clinical Impression: Generalized anxiety disorder with panic attacks Patient Disposition: Home, Self-Care Instructions: Panic Disorder (ED), Anxiety (ED) Additional Instructions: Take clonazepam 0.5 mg daily as prescribed for anxiety and panic attack See your therapist and psychiatrist for further refills Prescriptions: New clonazepam 0.5 mg tablet 0.5 mg PO DAILY Qty: 4 0RF No Action metoprolol succinate 50 mg tablet extended release 24 hr 50 mg PO DAILY Qty: 90 2RF valsartan 160 mg tablet 160 mg PO DAILY Qty: 90 1RF mirtazapine 45 mg Tablet 45 mg PO BEDTIME omeprazole 20 mg Tablet,Delayed Release (Dr/Ec) 20 mg PO DAILY@0630 fluticasone propionate [Flonase Allergy Relief] 50 mcg/actuation spray,suspension 2 spray intranasal DAILY Qty: 16 0RF Rx Instructions: administer into each nostril hydroxyzine HCl 25 mg tablet 25 mg PO TID PRN (Reason: anxiety) Qty: 6 0RF hydroxyzine HCl 25 mg tablet 25 mg PO TID PRN (Reason: anxiety) Qty: 20 0RF miconazole nitrate 2 % cream 1 appl topical BID Qty: 28 0RF azithromycin [Zithromax] 250 mg tablet 250 mg PO DAILY 4 Days Qty: 4 0RF Rx Instructions: start on day 2 of therapy trazodone 50 mg tablet 50 mg PO BEDTIME ferrous sulfate [FeroSul] 325 mg (65 mg iron) tablet 325 mg PO DAILY diphenhydramine HCl [Lou-Dryl] 25 mg tablet 25 mg PO BEDTIME PRN (Reason: itch) bisacodyl 5 mg tablet,delayed release (DR/EC) 5 mg PO DAILY PRN (Reason: constipation) rosuvastatin 20 mg tablet 20 mg PO BEDTIME aspirin 81 mg tablet,delayed release (DR/EC) 81 mg PO QAM multivitamin Tablet 1 tab PO QAM melatonin 10 mg tablet extended release 10 mg PO BEDTIME PRN (Reason: Insomnia) cholecalciferol (vitamin D3) 25 mcg (1,000 unit) tablet 25 mcg PO DAILY ondansetron 4 mg tablet,disintegrating 4 mg PO Q6H PRN (Reason: nausea and vomiting) Qty: 10 0RF acetaminophen 500 mg tablet 500 mg PO Q8H PRN (Reason: pain) zolpidem 5 mg tablet 5 mg PO BEDTIME PRN (Reason: Insomnia) ipratropium bromide 21 mcg (0.03 %) spray,non-aerosol 2 spray intranasal BID clonazepam 0.5 mg Tablet 0.5 mg PO TID Qty: 180 0RF gabapentin 100 mg Capsule 100 mg PO TID Qty: 180 0RF nitrofurantoin monohyd/m-cryst [Macrobid] 100 mg capsule 100 mg PO Q12H 3 Days Qty: 6 0RF Rx Instructions: must administer with a meal/food miconazole nitrate [Monistat 7] 2 % cream 1 appful vaginal BEDTIME 7 Days Qty: 45 0RF ofloxacin 0.3 % drops 10 drp otic (ears) DAILY 7 Days Qty: 5 0RF docusate sodium [Col-Rite] 100 mg capsule 200 mg PO BID Qty: 30 0RF polyethylene glycol 3350 [ClearLax] 17 gram/dose powder 17 g PO Q8H Qty: 238 0RF Advanced Healing (Petrolatum) 41 % ointment 1 appl topical BID PRN (Reason: irritated skin) Qty: 50 0RF docusate sodium [Colace] 100 mg capsule 200 mg PO BID Qty: 20 0RF polyethylene glycol 3350 [Miralax] 17 gram/dose powder 17 g PO BID Qty: 119 0RF simethicone 180 mg capsule 180 mg PO BID PRN (Reason: abdominal distention) Qty: 14 0RF sertraline 100 mg tablet 100 mg PO DAILY amlodipine 10 mg tablet 10 mg PO DAILY meclizine 25 mg tablet 25 mg PO DAILY PRN Interventions: ED Discharge Assessment Last Done: 04/17/25 03:09 Discharge Date/Time: 04/17/25 03:09 Print Language: Portuguese
== END 2025-04-17 03:09 | disposition home or self-care (01) ==
PROVIDERS: Emergency Provider Internal Medicine
DX: F41.1 Generalized anxiety disorder (principal); F41.0 Panic disorder [episodic paroxysmal anxiety]; I10 Essential (primary) hypertension; Z79.899 Other long term (current) drug therapy
CPT/HCPCS: 36415; 80053; 85025; 99283; 99284

== ENCOUNTER 2025-04-17 19:02 | Emergency (ER) | payer OTHER, SELFPAY ==
[2025-04-17 19:06] VITALS: BP 138/82; PULSE 78; O2SAT 97
[2025-04-17 19:07] VITALS: BP 131/46; PULSE 78; RESP 20; TEMP 36.9; O2SAT 96; BMI 28.6
--- NOTE | 2025-04-17 19:09 | ED.GENADULT ---
HPI - General Adult General Chief complaint: Nausea/Vomiting/Diarrhea Stated complaint: Dry mouth Time Seen by Provider: 04/18/25 00:21 History of Present Illness ED Provider: Ashleigh DUMONT narrative: The patient is an 79-year-old female with a history of a numerable emergency room visits with complaints of anxiety. She says she has run out of her clonazepam and has a prescription that should be available tomorrow but she does not think she can make it through the night until then. She checked into the emergency room 2 times 2 days ago on April 15. Today is her 2nd time checking into the emergency room today. She apparently had a fall 2 days ago on Friday and bruised her knees and her hands. Related Data Home Medications ?Medication ?Instructions ?Recorded ?Confirmed mirtazapine 45 mg tablet 45 mg PO BEDTIME 08/09/20 03/16/25 omeprazole 20 mg tablet,delayed 20 mg PO DAILY@0630 08/09/20 03/16/25 release aspirin 81 mg tablet,delayed 81 mg PO QAM 01/28/24 03/16/25 release bisacodyl 5 mg tablet,delayed 5 mg PO DAILY PRN constipation 01/28/24 03/16/25 release diphenhydramine HCl 25 mg tablet 25 mg PO BEDTIME PRN itch 01/28/24 03/16/25 (Lou-Dryl) ferrous sulfate 325 mg (65 mg 325 mg PO DAILY 01/28/24 03/16/25 iron) tablet (FeroSul) melatonin 10 mg tablet,extended 10 mg PO BEDTIME PRN Insomnia 01/28/24 03/16/25 release multivitamin 1 tab PO QAM 01/28/24 03/16/25 rosuvastatin 20 mg tablet 20 mg PO BEDTIME 01/28/24 03/16/25 trazodone 50 mg tablet 50 mg PO BEDTIME 01/28/24 03/16/25 amlodipine 10 mg tablet 10 mg PO DAILY 02/09/24 03/16/25 acetaminophen 500 mg tablet 500 mg PO Q8H PRN pain 08/09/24 03/16/25 ipratropium bromide 21 mcg (0.03 2 spray intranasal BID 08/09/24 03/16/25 %) nasal spray zolpidem 5 mg tablet 5 mg PO BEDTIME PRN Insomnia 08/09/24 03/16/25 cholecalciferol (vitamin D3) 25 25 mcg PO DAILY 08/20/24 03/16/25 mcg (1,000 unit) tablet meclizine 25 mg tablet 25 mg PO DAILY PRN 09/29/24 03/16/25 sertraline 100 mg tablet 100 mg PO DAILY 03/16/25 03/16/25 Previous Rx's ?Medication ?Instructions ?Recorded metoprolol succinate 50 mg 50 mg PO DAILY #90 tabs 09/28/20 tablet,extended release 24 hr fluticasone propionate 50 2 spray intranasal DAILY #16 grams 09/16/23 mcg/actuation nasal spray,suspension (Flonase Allergy Relief) ondansetron 4 mg disintegrating 4 mg PO Q6H PRN nausea and 04/28/24 tablet vomiting #10 tabs hydroxyzine HCl 25 mg tablet 25 mg PO TID PRN anxiety #6 tabs 08/07/24 clonazepam 0.5 mg tablet 0.5 mg PO TID #180 tabs 08/10/24 gabapentin 100 mg capsule 100 mg PO TID #180 caps 08/10/24 hydroxyzine HCl 25 mg tablet 25 mg PO TID PRN anxiety #20 tabs 09/09/24 miconazole nitrate 2 % vaginal 1 appful vaginal BEDTIME 7 days 10/09/24 cream (Monistat 7) #45 grams nitrofurantoin 100 mg PO Q12H 3 days #6 caps 10/09/24 monohydrate/macrocrystals 100 mg capsule (Macrobid) miconazole nitrate 2 % topical 1 appl topical BID #28 grams 01/01/25 cream valsartan 160 mg tablet 160 mg PO DAILY #90 tabs 01/20/25 ofloxacin 0.3 % ear drops 10 drp otic (ears) DAILY 7 days #5 02/01/25 mL docusate sodium 100 mg capsule 200 mg (2 x 100 mg) PO BID #30 caps 02/07/25 (Col-Rite) polyethylene glycol 3350 17 17 g PO Q8H #238 grams 02/07/25 gram/dose oral powder (ClearLax) white petrolatum 41 % topical 1 appl topical BID PRN irritated 02/07/25 ointment (Advanced Healing skin #50 grams (Petrolatum)) azithromycin 250 mg tablet 250 mg PO DAILY 4 days #4 tabs 02/14/25 (Zithromax) docusate sodium 100 mg capsule 200 mg (2 x 100 mg) PO BID #20 caps 02/24/25 (Colace) polyethylene glycol 3350 17 17 g PO BID #119 grams 02/24/25 gram/dose oral powder (Miralax) simethicone 180 mg capsule 180 mg PO BID PRN abdominal 03/03/25 distention #14 caps clonazepam 0.5 mg tablet 0.5 mg PO DAILY #4 tabs 04/17/25 Allergies Allergy/AdvReac Type Severity Reaction Status Date / Time penicillin G [Penicillin G] Allergy Severe ITCHY/RASH Verified 04/17/25 19:07 Sulfa (Sulfonamide Allergy Severe ITCHY,RASH, Verified 04/17/25 19:07 Antibiotics) rash [Sulfa (Sulfonamides)] trimethoprim [From Bactrim] Allergy Severe HIVES Verified 04/17/25 19:07 Penicillins Allergy Intermediate Hives Verified 04/17/25 19:07 sulfamethoxazole Allergy Mild Hives Verified 04/17/25 19:07 [From Bactrim] Review of Systems Review of Systems: Yes all other systems are reviewed and are negative ON LICENSE OF [facility] Past Medical History 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 or 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 (fitness/wellness director) Unable to assess alcohol history related to: Unknown Alcohol intake: never Patient Tobacco Use Status: Never used Tobacco Smoked in Last 30 Days: No Use of substances other than those prescribed or required for medical reasons: No Advance Directives: Yes Advance Directives on File: Yes Advance Directives Date on File: 01/28/24 service: No Physical Exam ED Vital Signs: Vital Signs - 24 hr 04/17/25 19:07 04/17/25 22:56 04/18/25 00:53 Temperature 98.5 F 98.8 F 97.7 F Pulse Rate 78 72 88 Respiratory Rate 20 16 16 Blood Pressure 131/46 L 137/67 110/77 Pulse Oximetry 96 97 98 Oxygen Delivery Method Room Air Room Air Room Air 04/18/25 00:56 Temperature 97.7 F Pulse Rate 88 Respiratory Rate 16 Blood Pressure 110/77 Pulse Oximetry 98 Oxygen Delivery Method Room Air BMI result Body Mass Index 28.6 Const Other: The patient is awake and alert. She has a histrionic demeanor which is typical of her ER presentations. She does not seem in acute distress. HENMT Head: Yes normal to inspection Face and sinus: Yes normal facial exam Mouth: Normal oral and palatal mucosa present Eyes General: appearance normal, both eyes and all related structures Neck Neck: Yes normal visual inspection and Yes no JVD Resp Effort & Inspection: normal respiratory effort Auscultation: clear to auscultation bilaterally Cardio Rate: regular rate Rhythm: regular rhythm Heart sounds: S1 normal heart sound present and S2 normal heart sound present Skin Other: The patient has bruises to the knees in the hands. These seem old. Neuro Other: The patient has a histrionic demeanor which is typical for her. Cranial nerves are grossly intact. She moves her extremities symmetrically. She has a steady gait. Extrem Other: No peripheral edema. She has a normal gait. Course Course Course Narrative: This is a Rapid Medical Exam performed in triage by Jackie Magana PA-C. Full HPI, ROS and PE to be performed by primary ED provider. 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 Also reports dry mouth, nausea & abdominal pain. Poor historian PE: nontoxic appearing, dry heaving in triage, rambling, slef induce tremors appreciated intermittently Plan: EKG, UA - labs completed yesterday in the ED Medications Administered Discontinued Medications Generic Name Dose Route Start Last Admin Trade Name Freq PRN Reason Stop Dose Admin Clonazepam 0.5 mg 04/18/25 00:43 04/18/25 00:52 Clonazepam 0.5 Mg Tablet PO 04/18/25 00:44 0.5 mg ONCE ONE Administration Medical Decision Making Medical Decision Making [facility] Narrative: The patient is an 79-year-old female with a history of chronic anxiety and in numerable emergency room visits with complaints of anxiety and requests for benzodiazepines. She was given 0.5 mg of clonazepam and discharged. Discharge Plan Discharge Clinical Impression: Anxiety Patient Disposition: Home, Self-Care Additional Instructions: Please machine pecan picker your regular prescriptions tomorrow. Please continue your regular medications. Please follow up soon with your regular doctor. Prescriptions: No Action metoprolol succinate 50 mg tablet extended release 24 hr 50 mg PO DAILY Qty: 90 2RF valsartan 160 mg tablet 160 mg PO DAILY Qty: 90 1RF mirtazapine 45 mg Tablet 45 mg PO BEDTIME omeprazole 20 mg Tablet,Delayed Release (Dr/Ec) 20 mg PO DAILY@0630 fluticasone propionate [Flonase Allergy Relief] 50 mcg/actuation spray,suspension 2 spray intranasal DAILY Qty: 16 0RF Rx Instructions: administer into each nostril hydroxyzine HCl 25 mg tablet 25 mg PO TID PRN (Reason: anxiety) Qty: 6 0RF hydroxyzine HCl 25 mg tablet 25 mg PO TID PRN (Reason: anxiety) Qty: 20 0RF miconazole nitrate 2 % cream 1 appl topical BID Qty: 28 0RF azithromycin [Zithromax] 250 mg tablet 250 mg PO DAILY 4 Days Qty: 4 0RF Rx Instructions: start on day 2 of therapy clonazepam 0.5 mg tablet 0.5 mg PO DAILY Qty: 4 0RF trazodone 50 mg tablet 50 mg PO BEDTIME ferrous sulfate [FeroSul] 325 mg (65 mg iron) tablet 325 mg PO DAILY diphenhydramine HCl [Lou-Dryl] 25 mg tablet 25 mg PO BEDTIME PRN (Reason: itch) bisacodyl 5 mg tablet,delayed release (DR/EC) 5 mg PO DAILY PRN (Reason: constipation) rosuvastatin 20 mg tablet 20 mg PO BEDTIME aspirin 81 mg tablet,delayed release (DR/EC) 81 mg PO QAM multivitamin Tablet 1 tab PO QAM melatonin 10 mg tablet extended release 10 mg PO BEDTIME PRN (Reason: Insomnia) cholecalciferol (vitamin D3) 25 mcg (1,000 unit) tablet 25 mcg PO DAILY ondansetron 4 mg tablet,disintegrating 4 mg PO Q6H PRN (Reason: nausea and vomiting) Qty: 10 0RF acetaminophen 500 mg tablet 500 mg PO Q8H PRN (Reason: pain) zolpidem 5 mg tablet 5 mg PO BEDTIME PRN (Reason: Insomnia) ipratropium bromide 21 mcg (0.03 %) spray,non-aerosol 2 spray intranasal BID clonazepam 0.5 mg Tablet 0.5 mg PO TID Qty: 180 0RF gabapentin 100 mg Capsule 100 mg PO TID Qty: 180 0RF nitrofurantoin monohyd/m-cryst [Macrobid] 100 mg capsule 100 mg PO Q12H 3 Days Qty: 6 0RF Rx Instructions: must administer with a meal/food miconazole nitrate [Monistat 7] 2 % cream 1 appful vaginal BEDTIME 7 Days Qty: 45 0RF ofloxacin 0.3 % drops 10 drp otic (ears) DAILY 7 Days Qty: 5 0RF docusate sodium [Col-Rite] 100 mg capsule 200 mg PO BID Qty: 30 0RF polyethylene glycol 3350 [ClearLax] 17 gram/dose powder 17 g PO Q8H Qty: 238 0RF Advanced Healing (Petrolatum) 41 % ointment 1 appl topical BID PRN (Reason: irritated skin) Qty: 50 0RF docusate sodium [Colace] 100 mg capsule 200 mg PO BID Qty: 20 0RF polyethylene glycol 3350 [Miralax] 17 gram/dose powder 17 g PO BID Qty: 119 0RF simethicone 180 mg capsule 180 mg PO BID PRN (Reason: abdominal distention) Qty: 14 0RF sertraline 100 mg tablet 100 mg PO DAILY amlodipine 10 mg tablet 10 mg PO DAILY meclizine 25 mg tablet 25 mg PO DAILY PRN Referrals: Name,MD Nitin [Primary Care Provider] - Interventions: ED Discharge Assessment Last Done: 04/18/25 00:56 Discharge Date/Time: 04/18/25 00:57 Print Language: English
--- NOTE | 2025-04-17 19:15 | ECG_ITS ---
Test Reason : n/v Blood Pressure : */* mmHG Vent. Rate : 98 BPM Atrial Rate : 98 BPM P-R Int : 202 ms QRS Dur : 100 ms QT Int : 368 ms P-R-T Axes : 50 -30 36 degrees QTcB Int : 469 ms Normal sinus rhythm Left axis deviation Moderate voltage criteria for LVH, may be normal variant ( R in aVL , [place] product ) Abnormal ECG When compared with ECG of 28-Feb-2025 11:04, No significant change was found Referred By: Jackie Magana Electronically Signed By: KATRINA PARSONS MD
--- OUTSIDE RECORDS SUMMARY | 2025-04-17 21:07 | XMS_ITS | Encounter Summary ---
Author Organization [employer] Address [address] [place] [address] Care Team Providers Care Process Control Board Operator Name Role Phone Name, Nitin PIKE Primary Care Provider [phone] Reason for Visit * Reason Onset Date Comments Med Refill 11/08/2024 Encounter Details Date Type Department Care Team ([facility] st Contact Info) Description 11/08/2024 Telephone [facility] [address] [place], [place] [id number] Name, MD Nitin [address] [place] [address] Med Refill Social History Tobacco Use Types [...] 5 MG tablet To be sent to: [facility] - [place], [place] - [address] documented in this encounter Plan of Treatment Upcoming Encounters Date Type Department Care Team ([facility] st Contact Info) Description 04/29/2025 10:00 AM EDT Office Visit [facility] [address] [place] [address] Name, MD Nitin [address] [place] [address] documented as of this encounter Visit Diagnoses Not on filedocumented in this encounter Additional Health Concerns Assessment Noted Time PHQ-9 Depression Total Score: 6 02/13/20 24 9:14 AM EDT documented as of this encounter Care Teams Process Control Board Operator Relationship Specialty Start Date End Date Name, MD Nitin [address] [place] [address] PCP - General Family Medicine 08/26/17 [facility] 09/01/24 documented as of this encounter
--- NOTE | 2025-04-17 22:48 | PC.NURSE ---
pt requesting nausea medications at this time, pt noted to be dry heaving into emesis bag
[2025-04-17 22:56] VITALS: BP 137/67; PULSE 72; RESP 16; TEMP 37.1; O2SAT 97
[2025-04-18] MEDS: clonazePAM 0.5 MG TABLET PO (00:52)
[2025-04-18 00:53] VITALS: BP 110/77; PULSE 88; RESP 16; TEMP 36.5; O2SAT 98
[2025-04-18 00:56] VITALS: BP 110/77; PULSE 88; RESP 16; TEMP 36.5; O2SAT 98
== END 2025-04-18 00:57 | disposition home or self-care (01) ==
PROVIDERS: Emergency Provider Emergency Medicine; PCP Internal Medicine Geriatric Medicine
DX: F41.9 Anxiety disorder, unspecified (principal)
CPT/HCPCS: 93005; 99283; 99285

== ENCOUNTER → 2025-04-17 19:15 | Outpatient (BNV) | payer OTHER, SELFPAY | PROVIDERS: Emergency Provider Emergency Medicine; PCP Internal Medicine Geriatric Medicine; Visit Provider Internal Medicine Cardiovascular Disease | DX: R94.31 Abnormal electrocardiogram [ECG] [EKG] (principal); R11.2 Nausea with vomiting, unspecified | CPT/HCPCS: 93010 ==

== ENCOUNTER 2025-05-04 22:00 | Emergency (ER) | payer OTHER, SELFPAY ==
--- NOTE | ~2025-05-04 | CT_ITS ---
CLINICAL HISTORY: fall, mild neck pain CT cervical spine without contrast Comparison: CT/SR - CT CERVICAL SPINE WO IV CON - 10/12/24 08:47 EST Findings: Reversal of the cervical lordosis. Osteopenia. Multilevel spondylosis with osteophytosis, uncovertebral hypertrophy, facet arthropathy and degenerative disc disease. 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 Anterolisthesis at C4-C5. Similar widening of the right C3-C4 facet joint. Moderate spinal canal narrowing C5-C6 with severe bilateral foraminal stenoses, right worse than left. No acute fractures or dislocations. Trace bilateral mastoid effusions. No cervical fluid collections or masses. Calcified granuloma right upper lobe. Diffuse esophageal mural thickening, nonspecific. IMPRESSION: No acute findings. Additional findings as described. This document has been electronically signed by: Jonathon Cortés MD on 05/04/2025 23:21:22
--- NOTE | ~2025-05-04 | CT_ITS ---
CLINICAL HISTORY: r o blow out fx L side CT maxillofacial without contrast Comparison: CT/REG/SR - CT FACIAL BONES WO IV CON - 11/29/23 09:16 EST Findings: Chronic appearing left nasal bone fracture. No significant soft tissue edema. No acute maxillofacial fracture. Temporomandibular joints are intact. Mucosal thickening throughout the paranasal sinuses. Left periorbital soft tissue hematomas. Visualized intracranial contents are within normal limits. No foreign bodies. Bilateral lens extraction. IMPRESSION: 1. Left periorbital soft tissue hematomas. 2. No acute maxillofacial fracture. This document has been electronically signed by: Jonathon Cortés MD on 05/04/2025 23:25:50
--- NOTE | ~2025-05-04 | CT_ITS ---
CLINICAL HISTORY: FALL CT head without contrast Comparison: CT/SR - CT HEAD/BRAIN WO IV CON - 11/14/24 20:27 EST Findings: Scattered subcortical and periventricular hypoattenuation, likely in keeping with chronic small vessel ischemic disease. Parenchymal volume loss with compensatory prominence of the ventricles and CSF spaces. No acute territorial infarction, intracranial hemorrhage, midline shift or hydrocephalus. Empty sella is demonstrated, nonspecific. Trace right mastoid effusion. Left periorbital soft tissue hematomas. Nonspecific scattered lucencies throughout the calvarium for example series 17, image 31 and 32. Opacification in the left ethmoidal air cells. No air-fluid levels. Bilateral lens extraction. IMPRESSION: 1. No acute intracranial abnormality. 2. Additional findings as described. This document has been electronically signed by: Jonathon Cortés MD on 05/04/2025 23:24:32
[2025-05-04 22:07] VITALS: BP 108/61; BP 182/64; PULSE 79; PULSE 80; RESP 16; TEMP 37; O2SAT 97; BMI 28.8
--- NOTE | 2025-05-04 22:13 | ED.GENADULT ---
HPI - General Adult General Chief complaint: Fall Stated complaint: Fall w/ head strike Source: patient and EMS Mode of arrival: EMS Limitations: no limitations History of Present Illness ED Provider: Dr. Marta Briscoe HPI narrative: Patient comes to the emergency room complaining of left facial pain after sustaining a fall. According to the patient's, patient was walking in her house, a flip-flop got stuck between the floor and a carpet and she fell forward. Patient states that she did hit her head, especially the left facial side, denies any neck pain, denies any syncope or near syncopal episode. Patient was able to get up and called 911. Patient denies any back pain hip pain. Denies any chest pain, shortness of breath or dizziness. Related Data Home Medications ?Medication ?Instructions ?Recorded ?Confirmed mirtazapine 45 mg tablet 45 mg PO BEDTIME 08/09/20 03/16/25 omeprazole 20 mg tablet,delayed 20 mg PO DAILY@0630 08/09/20 03/16/25 release aspirin 81 mg tablet,delayed 81 mg PO QAM 01/28/24 03/16/25 release bisacodyl 5 mg tablet,delayed 5 mg PO DAILY PRN constipation 01/28/24 03/16/25 release diphenhydramine HCl 25 mg tablet 25 mg PO BEDTIME PRN itch 01/28/24 03/16/25 (Lou-Dryl) ferrous sulfate 325 mg (65 mg 325 mg PO DAILY 01/28/24 03/16/25 iron) tablet (FeroSul) melatonin 10 mg tablet,extended 10 mg PO BEDTIME PRN Insomnia 01/28/24 03/16/25 release multivitamin 1 tab PO QAM 01/28/24 03/16/25 rosuvastatin 20 mg tablet 20 mg PO BEDTIME 01/28/24 03/16/25 trazodone 50 mg tablet 50 mg PO BEDTIME 01/28/24 03/16/25 amlodipine 10 mg tablet 10 mg PO DAILY 02/09/24 03/16/25 acetaminophen 500 mg tablet 500 mg PO Q8H PRN pain 08/09/24 03/16/25 ipratropium bromide 21 mcg (0.03 2 spray intranasal BID 08/09/24 03/16/25 %) nasal spray zolpidem 5 mg tablet 5 mg PO BEDTIME PRN Insomnia 08/09/24 03/16/25 cholecalciferol (vitamin D3) 25 25 mcg PO DAILY 08/20/24 03/16/25 mcg (1,000 unit) tablet meclizine 25 mg tablet 25 mg PO DAILY PRN 09/29/24 03/16/25 sertraline 100 mg tablet 100 mg PO DAILY 03/16/25 03/16/25 Previous Rx's ?Medication ?Instructions ?Recorded metoprolol succinate 50 mg 50 mg PO DAILY #90 tabs 09/28/20 tablet,extended release 24 hr fluticasone propionate 50 2 spray intranasal DAILY #16 grams 09/16/23 mcg/actuation nasal spray,suspension (Flonase Allergy Relief) ondansetron 4 mg disintegrating 4 mg PO Q6H PRN nausea and 04/28/24 tablet vomiting #10 tabs hydroxyzine HCl 25 mg tablet 25 mg PO TID PRN anxiety #6 tabs 08/07/24 clonazepam 0.5 mg tablet 0.5 mg PO TID #180 tabs 08/10/24 gabapentin 100 mg capsule 100 mg PO TID #180 caps 08/10/24 hydroxyzine HCl 25 mg tablet 25 mg PO TID PRN anxiety #20 tabs 09/09/24 miconazole nitrate 2 % vaginal 1 appful vaginal BEDTIME 7 days 10/09/24 cream (Monistat 7) #45 grams nitrofurantoin 100 mg PO Q12H 3 days #6 caps 10/09/24 monohydrate/macrocrystals 100 mg capsule (Macrobid) miconazole nitrate 2 % topical 1 appl topical BID #28 grams 01/01/25 cream valsartan 160 mg tablet 160 mg PO DAILY #90 tabs 01/20/25 ofloxacin 0.3 % ear drops 10 drp otic (ears) DAILY 7 days #5 02/01/25 mL docusate sodium 100 mg capsule 200 mg (2 x 100 mg) PO BID #30 caps 02/07/25 (Col-Rite) polyethylene glycol 3350 17 17 g PO Q8H #238 grams 02/07/25 gram/dose oral powder (ClearLax) white petrolatum 41 % topical 1 appl topical BID PRN irritated 02/07/25 ointment (Advanced Healing skin #50 grams (Petrolatum)) azithromycin 250 mg tablet 250 mg PO DAILY 4 days #4 tabs 02/14/25 (Zithromax) docusate sodium 100 mg capsule 200 mg (2 x 100 mg) PO BID #20 caps 02/24/25 (Colace) polyethylene glycol 3350 17 17 g PO BID #119 grams 02/24/25 gram/dose oral powder (Miralax) simethicone 180 mg capsule 180 mg PO BID PRN abdominal 03/03/25 distention #14 caps clonazepam 0.5 mg tablet 0.5 mg PO DAILY #4 tabs 04/17/25 acetaminophen 500 mg tablet 500 mg PO Q6H PRN fever or pain 05/04/25 #30 tabs Allergies Allergy/AdvReac Type Severity Reaction Status Date / Time penicillin G (Penicillin G) Allergy Severe ITCHY/RASH Verified 05/04/25 22:15 Sulfa (Sulfonamide Allergy Severe ITCHY,RASH, Verified 05/04/25 22:15 Antibiotics) (Sulfa rash (Sulfonamides)) trimethoprim (From Bactrim) Allergy Severe HIVES Verified 05/04/25 22:15 Penicillins Allergy Intermediate Hives Verified 05/04/25 22:15 sulfamethoxazole (From Allergy Mild Hives Verified 05/04/25 22:15 Bactrim) Review of Systems Review of Systems: Constitutional : No Weight loss, No Fever, No Chills, No Night Sweats, No Fatigue, No Malaise ENT/Mouth : No Hearing loss, No Ear Pain, No Nasal Congestion, No Sinus Pain, No Hoarseness, No sore throat, No Rhinorrhea, No Swallowing Difficulty Eyes: No Eye Pain, No Swelling, No Redness, No Foreign Body, No Discharge, No Vision Changes Cardiovascular : No Chest Pain, No SOB, No Dyspnea on Exertion, No Orthopnea, No Edema, No Palpitations Respiratory : No Cough, No Sputum, No Wheezing, No Smoke Exposure, No Dyspnea Gastrointestinal : No Nausea, No Vomiting, No Diarrhea, No Constipation, No abdominal Pain, No Hematochezia, No Melena Genitourinary : no irregular bleeding, No Dysuria, No Urinary Frequency, No Hematuria, No Urinary Incontinence, No Urgency, No Flank Pain, No Urinary Flow Changes, No Hesitancy Musculoskeletal : No joint pain, No Myalgias, No Joint Swelling Skin : Complaining of ecchymosis on the left side of the face Neuro : No Weakness, No Numbness, No Paresthesias, No Loss of Consciousness, No Dizziness, No Headache Psych : No Anxiety/Panic, No Depression, No SI/HI/AH/VH, No Social Issues, Heme/Lymph: No Bruising, No Bleeding,No Lymphadenopathy Endocrine : No Polyuria, No Polydipsia, No Temperature Intolerance [facility] Past Medical History 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) Unable to assess alcohol history related to: Unknown Alcohol intake: never Patient Tobacco Use Status: Never used Tobacco Smoked in Last 30 Days: No Use of substances other than those prescribed or required for medical reasons: No Advance Directives: Yes Advance Directives on File: Yes Advance Directives Date on File: 01/28/24 Do you have a plan to hurt others: No Plan service: No Physical Exam ED Vital Signs: Vital Signs - 24 hr 05/04/25 22:07 05/04/25 23:31 Temperature 98.6 F 98.4 F Pulse Rate 79 69 Respiratory Rate 16 16 Blood Pressure 108/61 112/67 Pulse Oximetry 97 97 Oxygen Delivery Method Room Air Room Air BMI result Body Mass Index 28.8 Const Other: Appearance: Alert. Oriented X3. No acute distress. Eyes: Pupils equal, round and reactive to light. ENT: Pharynx normal. Normal , painless eye movements, nerve entrapment not suspected. There is a bit of swelling underneath the left eye Neck: Normal inspection. Neck supple. No lymph nodes noted. No crepitus CVS: Normal heart rate and rhythm. Pulses normal. Normal S1 and S2 Respiratory: No respiratory distress. Breath sounds normal. No Wheezing. No rales Abdomen: Soft and nontender. No rigidity. No distention. Skin: Skin warm and dry. Normal skin color. Normal skin turgor. Ecchymosis on the left side of the face Extremities: No lower extremity edema. No Lacerations. No Rash Neuro: Oriented X 3. No motor deficit. No sensory deficit. Moving all extremities. No slurred speech. CN 2 through 12 grossly intact Psych: calm, cooperative, normal affect Course Course Course Narrative: Patient reports having a mechanical fall. Other than pain in the face she has no other symptoms. All of patient's imaging and urinalysis pending Medications Administered Discontinued Medications Generic Name Dose Route Start Last Admin Trade Name Beau PRN Reason Stop Dose Admin Acetaminophen 975 mg 05/04/25 22:12 05/04/25 23:12 Acetaminophen 325 Mg Tablet PO 05/04/25 22:13 975 mg ONCE ONE Administration Medical Decision Making Medical Decision Making [facility] Narrative: Interpretation of urinalysis, patient has chronic leukocyte esterase with high WBC, no bacteria seen, negative for nitrite. Comparing patient's current urine to previous urinalysis, looks the same, previous microbiology reports do not report any bacterial growth. Antibiotics not indicated at this time. Head CT, cervical spine CT and facial bone CT do not show any acute abnormality other than left periorbital soft tissue hematomas. Patient is able to move her eyes in all directions bilaterally without any pain or restriction in range of motion. Patient likely has a ecchymosis. Patient ready for discharge Differential Diagnosis Differential Diagnoses: The differential diagnosis associated with the presentation includes (Intracranial bleeding, cervical spine injury, blowout fracture) Admission/Observation Consideration of admission/observation: Escalation of care including admission/observation considered (Given patient's age and presentation, observation was considered) Lab Data MDM Lab Attestation statement: I reviewed the patient's lab results. Labs: Lab Results 05/04/25 Range/Units 23:33 Urine Color Yellow Urine Appearance Clear Urine pH 5.5 (5.0-9.0) Ur Specific Neal 1.015 (1.005-1.025) Urine Protein Negative (Neg-Trace) mg/dL Urine Glucose (UA) Negative (Negative) mg/dL Urine Ketones Negative (Negative) mg/dL Urine Blood Negative (Negative) Urine Nitrite Negative (Negative) Ur Leukocyte Esterase Moderate (2+) H (Negative) Urine RBC 0-2 (0-2) /HPF Urine WBC 21-50 H (0-5) /HPF Ur Squamous Epith Cells 0-2 (0-2) /HPF Urine Bacteria None Seen (None Seen) Hyaline Casts 0-2 (0-2) /LPF Urine Opiates Screen Not Detected (Not Detect) Ur Buprenorphine Scrn Not Detected (Not Detect) ng/mL Ur Oxycodone Screen Not Detected (Not Detect) ng/mL Urine Methadone Screen Not Detected (Not Detect) ng/mL Urine Fentanyl Screen Not Detected (Not Detect) Ur Barbiturates Screen Not Detected (Not Detect) Ur Phencyclidine Scrn Not Detected (Not Detect) Ur Amphetamines Screen Not Detected (Not Detect) U Benzodiazepines Scrn Not Detected (Not Detect) Urine Cocaine Screen Not Detected (Not Detect) U Marijuana (THC) Screen Not Detected (Not Detect) Independent Interpretation I performed an independent interpretation of an: CT Scan Interpretation: . Radiology Impression Radiologist Impression: Scattered subcortical and periventricular hypoattenuation, likely in keeping with chronic small vessel ischemic disease. Parenchymal volume loss with compensatory prominence of the ventricles and CSF spaces. No acute territorial infarction, intracranial hemorrhage, midline shift or hydrocephalus. Empty sella is demonstrated, nonspecific. Trace right mastoid effusion. Left periorbital soft tissue hematomas. Nonspecific scattered lucencies throughout the calvarium for example series 17, image 31 and 32. Opacification in the left ethmoidal air cells. No air-fluid levels. Bilateral lens extraction. Reversal of the cervical lordosis. Osteopenia. Multilevel spondylosis with osteophytosis, uncovertebral hypertrophy, facet arthropathy and degenerative disc disease. 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 Anterolisthesis at C4-C5. Similar widening of the right C3-C4 facet joint. Moderate spinal canal narrowing C5-C6 with severe bilateral foraminal stenoses, right worse than left. No acute fractures or dislocations. Trace bilateral mastoid effusions. No cervical fluid collections or masses. Calcified granuloma right upper lobe. Chronic appearing left nasal bone fracture. No significant soft tissue edema. No acute maxillofacial fracture. Temporomandibular joints are intact. Mucosal thickening throughout the paranasal sinuses. Left periorbital soft tissue hematomas. Visualized intracranial contents are within normal limits. No foreign bodies. Discharge Plan Discharge Clinical Impression: Fall, Contusion of face Patient Disposition: Home, Self-Care Instructions: Facial Contusion (ED) Additional Instructions: Please follow-up with your primary care physician tomorrow. If you have any worsening or new symptoms, please return to the emergency room or call 911 Prescriptions: New acetaminophen 500 mg tablet 500 mg PO Q6H PRN (Reason: fever or pain) Qty: 30 0RF No Action metoprolol succinate 50 mg tablet extended release 24 hr 50 mg PO DAILY Qty: 90 2RF valsartan 160 mg tablet 160 mg PO DAILY Qty: 90 1RF mirtazapine 45 mg Tablet 45 mg PO BEDTIME omeprazole 20 mg Tablet,Delayed Release (Dr/Ec) 20 mg PO DAILY@0630 fluticasone propionate [Flonase Allergy Relief] 50 mcg/actuation spray,suspension 2 spray intranasal DAILY Qty: 16 0RF Rx Instructions: administer into each nostril hydroxyzine HCl 25 mg tablet 25 mg PO TID PRN (Reason: anxiety) Qty: 6 0RF hydroxyzine HCl 25 mg tablet 25 mg PO TID PRN (Reason: anxiety) Qty: 20 0RF miconazole nitrate 2 % cream 1 appl topical BID Qty: 28 0RF azithromycin [Zithromax] 250 mg tablet 250 mg PO DAILY 4 Days Qty: 4 0RF Rx Instructions: start on day 2 of therapy clonazepam 0.5 mg tablet 0.5 mg PO DAILY Qty: 4 0RF trazodone 50 mg tablet 50 mg PO BEDTIME ferrous sulfate [FeroSul] 325 mg (65 mg iron) tablet 325 mg PO DAILY diphenhydramine HCl [Lou-Dryl] 25 mg tablet 25 mg PO BEDTIME PRN (Reason: itch) bisacodyl 5 mg tablet,delayed release (DR/EC) 5 mg PO DAILY PRN (Reason: constipation) rosuvastatin 20 mg tablet 20 mg PO BEDTIME aspirin 81 mg tablet,delayed release (DR/EC) 81 mg PO QAM multivitamin Tablet 1 tab PO QAM melatonin 10 mg tablet extended release 10 mg PO BEDTIME PRN (Reason: Insomnia) cholecalciferol (vitamin D3) 25 mcg (1,000 unit) tablet 25 mcg PO DAILY ondansetron 4 mg tablet,disintegrating 4 mg PO Q6H PRN (Reason: nausea and vomiting) Qty: 10 0RF acetaminophen 500 mg tablet 500 mg PO Q8H PRN (Reason: pain) zolpidem 5 mg tablet 5 mg PO BEDTIME PRN (Reason: Insomnia) ipratropium bromide 21 mcg (0.03 %) spray,non-aerosol 2 spray intranasal BID clonazepam 0.5 mg Tablet 0.5 mg PO TID Qty: 180 0RF gabapentin 100 mg Capsule 100 mg PO TID Qty: 180 0RF nitrofurantoin monohyd/m-cryst [Macrobid] 100 mg capsule 100 mg PO Q12H 3 Days Qty: 6 0RF Rx Instructions: must administer with a meal/food miconazole nitrate [Monistat 7] 2 % cream 1 appful vaginal BEDTIME 7 Days Qty: 45 0RF ofloxacin 0.3 % drops 10 drp otic (ears) DAILY 7 Days Qty: 5 0RF docusate sodium [Col-Rite] 100 mg capsule 200 mg PO BID Qty: 30 0RF polyethylene glycol 3350 [ClearLax] 17 gram/dose powder 17 g PO Q8H Qty: 238 0RF Advanced Healing (Petrolatum) 41 % ointment 1 appl topical BID PRN (Reason: irritated skin) Qty: 50 0RF docusate sodium [Colace] 100 mg capsule 200 mg PO BID Qty: 20 0RF polyethylene glycol 3350 [Miralax] 17 gram/dose powder 17 g PO BID Qty: 119 0RF simethicone 180 mg capsule 180 mg PO BID PRN (Reason: abdominal distention) Qty: 14 0RF sertraline 100 mg tablet 100 mg PO DAILY amlodipine 10 mg tablet 10 mg PO DAILY meclizine 25 mg tablet 25 mg PO DAILY PRN Print Language: Israeli
[2025-05-04] MEDS: Acetaminophen 325 MG TABLET 975 MG PO (23:12)
[2025-05-04 23:31] VITALS: BP 112/67; PULSE 69; RESP 16; TEMP 36.9; O2SAT 97
--- NOTE | 2025-05-04 23:32 | PC.NURSE ---
ambulated steadily with tech standby assist to bathroom for urine sample. pt denies complaints, steady.
[2025-05-04 23:38] LABS: Appearance Urine Clear; Color Urine Yellow; Glucose Urine UA Negative (Negative); Leukocyte Esterase Urine Moderate (2+) (Negative); Nitrite Urine Negative (Negative); PH 5.5 (5.0-9.0); Specific Gravity - Urine 1.015 (1.005-1.025); UMIC TRIGGER UACC YES; Urine Blood Negative (Negative); Urine Ketones Negative (Negative); Urine Protein Negative (Neg-Trace)
[2025-05-04 23:40] LABS: Bacteria Urine None Seen (None Seen); Hyaline Casts Urine 0-2 /LPF (0-2); RBC Urine 0-2 /HPF (0-2); Squamous Epithelial Cell Urine 0-2 /HPF (0-2); UACC Culture Trigger YES; WBC Urine 21-50 /HPF (0-5)
[2025-05-04 23:52] LABS: Amphetamine Screen Urine Not Detected (Not Detect); Barbiturates, Urine Not Detected (Not Detect); Benzodiazepines Screen Urine Not Detected (Not Detect); Buprenorphine Scr Not Detected (Not Detect); Cannabinoid Screen Urine Not Detected (Not Detect); Cocaine Screen Urine Not Detected (Not Detect); Fentanyl, urine Not Detected (Not Detect); Methadone Screen, Urine Not Detected (Not Detect); Opiate Screen Urine Not Detected (Not Detect); Oxycodone Screen Urine Not Detected (Not Detect); Phencyclidine Screen Urine Not Detected (Not Detect)
[2025-05-05 00:21] VITALS: BP 112/67; PULSE 69; RESP 16; TEMP 36.9; O2SAT 97
== END 2025-05-05 00:22 | disposition home or self-care (01) ==
PROVIDERS: Emergency Provider Emergency Medicine; PCP Internal Medicine Geriatric Medicine
DX: S00.83XA Contusion of other part of head, initial encounter (principal); R51.9 Headache, unspecified; M54.2 Cervicalgia; W01.0XXA Fall on same level from slipping, tripping and stumbling without subsequent striking against object, initial encounter; Y93.9 Activity, unspecified; Y92.9 Unspecified place or not applicable; Y99.8 Other external cause status; Z51.81 Encounter for therapeutic drug level monitoring; Z79.899 Other long term (current) drug therapy
CPT/HCPCS: 70450; 70486; 72125; 80307; 81001; 87086; 87147; 99284

== ENCOUNTER → 2025-05-04 22:11 | Outpatient (BNV) | payer OTHER, SELFPAY | PROVIDERS: Emergency Provider Emergency Medicine; PCP Internal Medicine Geriatric Medicine; Visit Provider Radiology Diagnostic Radiology | DX: M54.2 Cervicalgia (principal); W19.XXXA Unspecified fall, initial encounter; S00.12XA Contusion of left eyelid and periocular area, initial encounter; K92.0 Hematemesis | CPT/HCPCS: 70450; 70486; 72125 ==

== ENCOUNTER 2025-05-07 07:53 | Emergency (ER) | payer OTHER, SELFPAY ==
[2025-05-07 08:07] VITALS: BP 149/71; BP 170/00; PULSE 81; PULSE 82; RESP 20; TEMP 36.6; O2SAT 97; BMI 30.9
--- NOTE | 2025-05-07 08:14 | ED.GENADULT ---
HPI - General Adult General Chief complaint: GI Bleed Stated complaint: BLOOD IN STOOL Time Seen by Provider: 05/07/25 08:12 Source: patient, EMS and aquaculture program director (all interactions with this patient were facilitated with an [facility] assistant technician) Mode of arrival: EMS Limitations: language barrier (all interactions with this patient were facilitated with an [facility] assistant technician) History of Present Illness ED Provider: Dyana Andrews PA-C HPI narrative: Patient is an 79 year old assigned female at with a history of hemorrhoids, CKD stage 3a, major neurocognitive disorder, HTN, and SVT presenting to the emergency department today with bright red blood per rectum. Patient states that she knows she has hemorrhoids but has not followed up with a general surgeon for it yet. Patient states that she used the restroom this morning and had bright red blood on the paper. Patient states that she had a previous fall but was evaluated for that already. Patient denies any dizziness, lightheadedness, abdominal pain, nausea, vomiting, fever, chills, blurry vision, double vision, loss of vision, chest pain, difficulty breathing, shortness of breath, back pain, night sweats, pain with urination, increased urinary frequency, increased urinary urgency, blood in her urine, syncope or a near syncopal episode, recent trauma or falls, bowel incontinence, bladder incontinence, or any other complaints at this time. Related Data Home Medications ?Medication ?Instructions ?Recorded ?Confirmed mirtazapine 45 mg tablet 45 mg PO BEDTIME 08/09/20 03/16/25 omeprazole 20 mg tablet,delayed 20 mg PO DAILY@0630 08/09/20 03/16/25 release aspirin 81 mg tablet,delayed 81 mg PO QAM 01/28/24 03/16/25 release bisacodyl 5 mg tablet,delayed 5 mg PO DAILY PRN constipation 01/28/24 03/16/25 release diphenhydramine HCl 25 mg tablet 25 mg PO BEDTIME PRN itch 01/28/24 03/16/25 (Lou-Dryl) ferrous sulfate 325 mg (65 mg 325 mg PO DAILY 01/28/24 03/16/25 iron) tablet (FeroSul) melatonin 10 mg tablet,extended 10 mg PO BEDTIME PRN Insomnia 01/28/24 03/16/25 release multivitamin 1 tab PO QAM 01/28/24 03/16/25 rosuvastatin 20 mg tablet 20 mg PO BEDTIME 01/28/24 03/16/25 trazodone 50 mg tablet 50 mg PO BEDTIME 01/28/24 03/16/25 amlodipine 10 mg tablet 10 mg PO DAILY 02/09/24 03/16/25 acetaminophen 500 mg tablet 500 mg PO Q8H PRN pain 08/09/24 03/16/25 ipratropium bromide 21 mcg (0.03 2 spray intranasal BID 08/09/24 03/16/25 %) nasal spray zolpidem 5 mg tablet 5 mg PO BEDTIME PRN Insomnia 08/09/24 03/16/25 cholecalciferol (vitamin D3) 25 25 mcg PO DAILY 08/20/24 03/16/25 mcg (1,000 unit) tablet meclizine 25 mg tablet 25 mg PO DAILY PRN 09/29/24 03/16/25 sertraline 100 mg tablet 100 mg PO DAILY 03/16/25 03/16/25 Previous Rx's ?Medication ?Instructions ?Recorded metoprolol succinate 50 mg 50 mg PO DAILY #90 tabs 09/28/20 tablet,extended release 24 hr fluticasone propionate 50 2 spray intranasal DAILY #16 grams 09/16/23 mcg/actuation nasal spray,suspension (Flonase Allergy Relief) ondansetron 4 mg disintegrating 4 mg PO Q6H PRN nausea and 04/28/24 tablet vomiting #10 tabs hydroxyzine HCl 25 mg tablet 25 mg PO TID PRN anxiety #6 tabs 08/07/24 clonazepam 0.5 mg tablet 0.5 mg PO TID #180 tabs 08/10/24 gabapentin 100 mg capsule 100 mg PO TID #180 caps 08/10/24 hydroxyzine HCl 25 mg tablet 25 mg PO TID PRN anxiety #20 tabs 09/09/24 miconazole nitrate 2 % vaginal 1 appful vaginal BEDTIME 7 days 10/09/24 cream (Monistat 7) #45 grams nitrofurantoin 100 mg PO Q12H 3 days #6 caps 10/09/24 monohydrate/macrocrystals 100 mg capsule (Macrobid) miconazole nitrate 2 % topical 1 appl topical BID #28 grams 01/01/25 cream valsartan 160 mg tablet 160 mg PO DAILY #90 tabs 01/20/25 ofloxacin 0.3 % ear drops 10 drp otic (ears) DAILY 7 days #5 02/01/25 mL docusate sodium 100 mg capsule 200 mg (2 x 100 mg) PO BID #30 caps 02/07/25 (Col-Rite) polyethylene glycol 3350 17 17 g PO Q8H #238 grams 02/07/25 gram/dose oral powder (ClearLax) white petrolatum 41 % topical 1 appl topical BID PRN irritated 02/07/25 ointment (Advanced Healing skin #50 grams (Petrolatum)) azithromycin 250 mg tablet 250 mg PO DAILY 4 days #4 tabs 02/14/25 (Zithromax) docusate sodium 100 mg capsule 200 mg (2 x 100 mg) PO BID #20 caps 02/24/25 (Colace) polyethylene glycol 3350 17 17 g PO BID #119 grams 02/24/25 gram/dose oral powder (Miralax) simethicone 180 mg capsule 180 mg PO BID PRN abdominal 03/03/25 distention #14 caps clonazepam 0.5 mg tablet 0.5 mg PO DAILY #4 tabs 04/17/25 acetaminophen 500 mg tablet 500 mg PO Q6H PRN fever or pain 05/04/25 #30 tabs Allergies Allergy/AdvReac Type Severity Reaction Status Date / Time penicillin G (Penicillin G) Allergy Severe ITCHY/RASH Verified 05/07/25 08:10 Sulfa (Sulfonamide Allergy Severe ITCHY,RASH, Verified 05/07/25 08:10 Antibiotics) (Sulfa rash (Sulfonamides)) trimethoprim (From Bactrim) Allergy Severe HIVES Verified 05/07/25 08:10 Penicillins Allergy Intermediate Hives Verified 05/07/25 08:10 sulfamethoxazole (From Allergy Mild Hives Verified 05/07/25 08:10 Bactrim) Review of Systems Constitutional: Constitutional: Reports no additional constitutional complaints, Denies chills, Denies fever(s) and Denies night sweats Eyes: Eyes: Reports no additional eye complaints, Denies blurry vision, Denies change in vision, Denies diplopia, Denies eye discharge, Denies loss of vision and Denies eye pain ENT: Denies dizziness Cardiovascular: Cardiovascular: Reports no additional cardiovascular complaints, Denies chest pain, Denies lightheadedness, Denies Loss of Consciousness and Denies dyspnea Respiratory: Respiratory: Reports no additional respiratory complaints and Denies dyspnea Gastrointestinal: Gastrointestinal: Reports no additional gastrointestinal complaints, Denies abdominal pain, Denies melena, Reports hematochezia, Denies change in bowel habits and Denies change in stool character Genitourinary: Genitourinary: Denies hematuria, Denies urinary frequency, Denies dysuria, Denies urinary incontinence, Denies urinary hesitancy and Denies urinary urgency Musculoskeletal: Musculoskeletal: Reports no additional musculoskeletal complaints, Denies numbness and Denies tingling Neurologic: Denies dizziness, Denies loss of vision, Denies numbness and Denies tingling Psychiatric: Psychiatric: Reports no additional psychiatric complaints Endocrine: Endocrine: Reports no additional endocrine complaints Hematologic/Lymphatic: Hematologic/Lymphatic: Reports no additional hematologic/lymphatic complaints Allergic/Immunologic: Allergic/Immunologic: Reports no additional allergic/immunologic complaints PMFSH Past Medical History Attestation statement: The following information was validated with the patient. 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 or 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 (plaque maker) Unable to assess alcohol history related to: Unknown Alcohol intake: never Patient Tobacco Use Status: Never used Tobacco Advance Directives: Yes Advance Directives on File: Yes Advance Directives Date on File: 01/28/24 service: No Physical Exam ED Vital Signs: Vital Signs - 24 hr 05/07/25 08:07 05/07/25 09:07 Temperature 97.8 F 97.8 F Pulse Rate 81 81 Respiratory Rate 20 20 Blood Pressure 149/71 H 149/71 H Pulse Oximetry 97 97 Oxygen Delivery Method Room Air Room Air BMI result Body Mass Index 30.9 Const General: cooperative, no acute distress, alert and awake Nutritional Appearance: well nourished Orientation/consciousness: patient oriented x3 HENMT Head: Yes normal to inspection Ears: hearing grossly normal bilaterally and external ears normal General nose exam: Normal external nose present, no nasal discharge noted and no epistaxis Face and sinus: No abrasion, Yes ecchymosis (healing bruising under the left eye) and No laceration Mouth: Normal oral and palatal mucosa present, no drooling and no muffled voice Eyes General: appearance normal, both eyes and all related structures Periorbital: periorbital findings normal Eyelids: Yes eyelids normal Conjunctivae: conjunctivae normal Pupils: Equal, round and reactive pupils present EOM: EOMs intact bilaterally Neck Neck: Yes normal visual inspection, Yes full ROM and Yes no lymphadenopathy Resp Effort & Inspection: normal respiratory effort and able to speak in complete sentences GI Other: Rectal examination performed with advertising editor present Rectal Exam - Female: normal sphincter tone and Internal hemorrhoid(s) present Neuro General: patient oriented x3, moves all extremities and CN's II-XI intact bilaterally Cranial nerves: Yes Equal, round and reactive pupils present Cognition (Neuro): normal cognition Extrem General: Yes normal to inspection, Yes full ROM and Yes capillary refill normal Psych Appearance: grossly normal Mental Status: mental status grossly normal Affect: normal affect Attitude: cooperative Thought process: Normal thought process present Thought content: Normal thought content present Insight: Good insight present (Psych) Medical Decision Making Medical Decision Making MDM Narrative: Patient is an 79 year old assigned female at with a history of hemorrhoids, CKD stage 3a, major neurocognitive disorder, HTN, and SVT presenting to the emergency department today with bright red blood per rectum. Patient's physical exam was as noted in the physical exam portion of this note. Patient's clinical presentation is most consistent with bleeding internal hemorrhoids. I explained my physical exam findings to the patient. I answered all questions asked by the patient. I stressed the importance of the patient taking her medication as directed (either prescribed or as the over the counter packaging recommends). I stressed the importance of the patient following up with her primary care provider and a general surgeon. I stressed the importance of the patient returning to the emergency department immediately if her symptoms were to worsen or if she were to develop any dizziness, shortness of breath, difficulty breathing, chest pain, blurry vision, loss of vision, nausea, vomiting, abdominal pain, fever, chills, back pain, or any other complaints. Patient verbalized agreement and understanding with this treatment plan and discharge. Differential Diagnosis Differential Diagnoses: The differential diagnosis associated with the presentation includes Hemorrhoids Admission/Observation Consideration of admission/observation: Escalation of care including admission/observation considered Patient would have been admitted to the hospital had her clinical presentation warranted hospital admission. Independent Historian Clinical information obtained from an independent historian. History obtained from or confirmed by: EMS (EMS provided additional history and confirmed the history provided by the patient.) Tests considered The following testing was considered but not selected: I considered obtaining a CBC and CMP however, the patient's current clinical presentation is most consistent with hemorrhoids and does not need additional work up. Discharge Plan Discharge Clinical Impression: Hemorrhoid Patient Disposition: Home, Self-Care Instructions: Neftaly Dean (DC) Additional Instructions: Follow up with your primary care provider. Return to the emergency department immediately if your symptoms worsen or if you develop any dizziness, shortness of breath, difficulty breathing, chest pain, blurry vision, loss of vision, nausea, vomiting, abdominal pain, fever, chills, back pain, or any other complaints. Steve?seguimiento?con landry m?dico de atenci?n primaria. Acuda inmediatamente al servicio de urgencias si kelsi s?ntomas empeoran o si presenta falta de aliento, dificultad para respirar, dolor tor?cico, mareos, aturdimiento, dolor de espalda, dolor abdominal, fiebre, escalofr?os o cualquier otro s?ntoma. Please see the information below about our Patient Portal. If you are not yet enrolled in the [facility] Patient Portal, you will receive an enrollment email invitation following your visit to any [facility] care setting. You may also self-enroll in the Patient Portal by visiting our website: [email or web address] The following information is required to access the Patient Portal: - Your [facility] Medical Record Number - Your personal home email address (must match what is in your electronic medical record, Registration staff can assist with this) - Name - Date of Capabilities of the Patient Portal: - Message some providers - View upcoming appointments - Access your health summary, medical history, and visit history - View current conditions and allergies - View procedure and lab results - View your medications, including guidelines, side effects, and precautions - Complete pre-appointment questionnaires requested by your provider - Ready summary reports of your office visits and procedures To access the Patient Portal Mobile Alex, follow these directions: - Search Skai in the Alex Store or Google Cloudmach Store - Download the Alex - Search for [facility] - Enter your login/password Portal del paciente Si usted no esta inscrito en el portal de pacientes de [facility], recibira suzy invitacion de inscripcion despues de landry visita al [facility] o al [facility] via correo electronico. Tambien puede inscribirse voluntariamente en el portal de pacientes visitando nuestra pagina web: [email or web address] La siguiente informacion sera requerida para acceder al portal: - Landry lula de historia medica de [facility] - Landry direccion de correo electronico personal - Nombre - Fecha de nacimiento Capacidades: Las siguientes capacidades estan disponibles en el portal de pacientes: - Enviar mensajes a algunos doctores - Verificar proximas citas - Acceso a landry historial de nito, registro medico e historial de visitas - Lary las condiciones actuales y alergias lary procedimientos y resultados del laboratorio - Lary kelsi medicamentos, incluyendo las pautas - Efectos secundarios y precauciones - Completar o llenar formularios / cuestionarios de - Citas solicitadas por landry doctor - Leer los resumenes de reportes medicos de kelsi visitas y procedimientos [place] acceder a la aplicacion movil: - Busque Skai en la Alex Store o Google Cloudmach Store - Descargue la aplicacion - Busque [facility] - Ingrese landry nombre de usuario / Contrasena Prescriptions: No Action metoprolol succinate 50 mg tablet extended release 24 hr 50 mg PO DAILY Qty: 90 2RF valsartan 160 mg tablet 160 mg PO DAILY Qty: 90 1RF mirtazapine 45 mg Tablet 45 mg PO BEDTIME omeprazole 20 mg Tablet,Delayed Release (Dr/Ec) 20 mg PO DAILY@0630 fluticasone propionate [Flonase Allergy Relief] 50 mcg/actuation spray,suspension 2 spray intranasal DAILY Qty: 16 0RF Rx Instructions: administer into each nostril hydroxyzine HCl 25 mg tablet 25 mg PO TID PRN (Reason: anxiety) Qty: 6 0RF hydroxyzine HCl 25 mg tablet 25 mg PO TID PRN (Reason: anxiety) Qty: 20 0RF miconazole nitrate 2 % cream 1 appl topical BID Qty: 28 0RF azithromycin [Zithromax] 250 mg tablet 250 mg PO DAILY 4 Days Qty: 4 0RF Rx Instructions: start on day 2 of therapy clonazepam 0.5 mg tablet 0.5 mg PO DAILY Qty: 4 0RF trazodone 50 mg tablet 50 mg PO BEDTIME ferrous sulfate [FeroSul] 325 mg (65 mg iron) tablet 325 mg PO DAILY diphenhydramine HCl [Lou-Dryl] 25 mg tablet 25 mg PO BEDTIME PRN (Reason: itch) bisacodyl 5 mg tablet,delayed release (DR/EC) 5 mg PO DAILY PRN (Reason: constipation) rosuvastatin 20 mg tablet 20 mg PO BEDTIME aspirin 81 mg tablet,delayed release (DR/EC) 81 mg PO QAM multivitamin Tablet 1 tab PO QAM melatonin 10 mg tablet extended release 10 mg PO BEDTIME PRN (Reason: Insomnia) cholecalciferol (vitamin D3) 25 mcg (1,000 unit) tablet 25 mcg PO DAILY ondansetron 4 mg tablet,disintegrating 4 mg PO Q6H PRN (Reason: nausea and vomiting) Qty: 10 0RF acetaminophen 500 mg tablet 500 mg PO Q8H PRN (Reason: pain) zolpidem 5 mg tablet 5 mg PO BEDTIME PRN (Reason: Insomnia) ipratropium bromide 21 mcg (0.03 %) spray,non-aerosol 2 spray intranasal BID clonazepam 0.5 mg Tablet 0.5 mg PO TID Qty: 180 0RF gabapentin 100 mg Capsule 100 mg PO TID Qty: 180 0RF nitrofurantoin monohyd/m-cryst [Macrobid] 100 mg capsule 100 mg PO Q12H 3 Days Qty: 6 0RF Rx Instructions: must administer with a meal/food miconazole nitrate [Monistat 7] 2 % cream 1 appful vaginal BEDTIME 7 Days Qty: 45 0RF ofloxacin 0.3 % drops 10 drp otic (ears) DAILY 7 Days Qty: 5 0RF docusate sodium [Col-Rite] 100 mg capsule 200 mg PO BID Qty: 30 0RF polyethylene glycol 3350 [ClearLax] 17 gram/dose powder 17 g PO Q8H Qty: 238 0RF Advanced Healing (Petrolatum) 41 % ointment 1 appl topical BID PRN (Reason: irritated skin) Qty: 50 0RF docusate sodium [Colace] 100 mg capsule 200 mg PO BID Qty: 20 0RF polyethylene glycol 3350 [Miralax] 17 gram/dose powder 17 g PO BID Qty: 119 0RF simethicone 180 mg capsule 180 mg PO BID PRN (Reason: abdominal distention) Qty: 14 0RF acetaminophen 500 mg tablet 500 mg PO Q6H PRN (Reason: fever or pain) Qty: 30 0RF sertraline 100 mg tablet 100 mg PO DAILY amlodipine 10 mg tablet 10 mg PO DAILY meclizine 25 mg tablet 25 mg PO DAILY PRN Referrals: [facility] General Surgeons [Provider Group, General Surgery] Referral Note: Call to establish and follow up with a general surgeon to address your hemorrhoids. Llame para establecer y hacer seguimiento con un cirujano general para abordar kelsi hemorroides. Name,MD Nitin [Primary Care Provider, Internal Medicine] Interventions: ED Discharge Assessment Last Done: 05/07/25 09:07 Discharge Date/Time: 05/07/25 09:08 Print Language: Hong Konger
--- NOTE | 2025-05-07 08:24 | PC.NURSE ---
Pt has known Hemorrhoids that she is suppose to have a follow up with surgery on, pt has not had follow up this morning and stated she had an episode of bright red blood on toilet paper this am but denies blood in toilet bowel. Denies vomiting, and abdominal pain
--- OUTSIDE RECORDS SUMMARY | 2025-05-07 08:27 | XMS_ITS | Encounter Summary ---
Author Organization [employer] Address [address] [place] [address] Care Team Providers Care Reel Tender Name Role Phone Name, Nitin PIKE Primary Care Provider [phone] Reason for Visit * Reason Onset Date Comments Med Refill 11/08/2024 Encounter Details Date Type Department Care Team ([facility] st Contact Info) Description 11/08/2024 Telephone [facility] [address] [place], [place] [phone] Name, MD Nitin [address] [place] [address] Med Refill Social History Tobacco Use Types [...] 5 MG tablet To be sent to: [facility] - [place], [place] - [address] documented in this encounter Plan of Treatment Upcoming Encounters Date Type Department Care Team ([facility] st Contact Info) Description 08/09/2025 11:15 AM EDT Office Visit [facility] [address] [place] [address] Name, MD Nitin [address] [place] [address] documented as of this encounter Visit Diagnoses Not on filedocumented in this encounter Additional Health Concerns Assessment Noted Time PHQ-9 Depression Total Score: 6 02/13/20 24 9:14 AM EDT documented as of this encounter Care Teams Reel Tender Relationship Specialty Start Date End Date Name, MD Nitin [address] [place] [address] PCP - General Family Medicine 08/26/17 [facility] 09/01/24 documented as of this encounter
[2025-05-07 09:07] VITALS: BP 149/71; PULSE 81; RESP 20; TEMP 36.6; O2SAT 97
== END 2025-05-07 09:08 | disposition home or self-care (01) ==
PROVIDERS: Emergency Provider Emergency Medicine; PCP Internal Medicine Geriatric Medicine
DX: K64.9 Unspecified hemorrhoids (principal); K92.1 Melena
CPT/HCPCS: 99282; 99284

== ENCOUNTER 2025-05-31 03:14 | Emergency (ER) | payer OTHER, SELFPAY ==
[2025-05-31 03:18] VITALS: BP 164/72; PULSE 92; O2SAT 99; BMI 33.5
--- OUTSIDE RECORDS SUMMARY | 2025-05-31 03:46 | XMS_ITS | Data Portability ---
Author Organization [employer] [facility], [facility] Address [address] [place] [address] Care Team Providers Care Process Planner Name Role Phone HIM CCA Primary Care Provider [phone] Assessment No assessment recorded. Plan of Treatment [...] blood by Pulse oximetry Heart rate Systolic And Diastolic Provider Name and Address Organization Details Last Updated DateTime 4 16 /min 96 [degF] 96 % 96 % 89 /min 120/70 mm[Hg] Not Available [employer] - production 18:59:08 Date Recorded Respiratory rate Heart rate Body weight Oxygen saturation Oxygen saturation in Arterial blood by Pulse oximetry Body temperature Systolic And Diastolic Provider Name and Address Organization Details Last Updated DateTime 18 /min 74 /min 20022.9 28 g 98 % 98 % 100 [degF] 130/66 mm[Hg] Not Available [employer] 15:33:18 Social History None recorded. Functional Status None recorded. Mental Status None recorded. Family History Nothing Reported. Medical History No medical history recorded. Gynecological HistoryNo gynecological history recorded. Obstetrics History GPAL:G 0 P 0 0 0 0 Past Encounters Encounter ID Performer Location Encounter Start Date Encounter Closed Date Diagnosis/Indication Diagnosis SNOMED-CT Code Diagnosis ICD10 Code Diagnosis Note [id number] Epifanio Mcintyre MD [address] [address] 01/31/2024 18:59:06 02/01/2024 21:09:19 Urethral stenosis 801129760 N35.92 This 78-year-ol d female recently had a Bunn catheter placed because she had difficulty voiding due to apparent urethral stenosis. She called today because she insists on having the catheter removed. It was removed by the assisted living director with the understand ing that if she can't void, she will need to go the the ER. The patient agreed with this plan. [id number] Rohit Benton MD [facility] - [address] [address] 02/06/2024 15:33:16 02/09/2024 18:20:42 Chronic retention of urine [id number] R33.8 Has bunn catheter which was recently [...] Pinzon Member ID Guarantor Name 02/09/2024 1 [facility] - DOS ON OR AFTER 2023 - DUAL ELIGIBLE - [employer] OPTIONS AND ONE CARE (MEDICARE REPLACEMENT/ADV ANTAGE - HMO) Noreen Wing [id number] Noreen Wing Notes Date Note Type Note Provider Name and Address Organization Details Recorded Time 01/31/2024 text/html CRC Nurse Triage Notes (Joana Dominique): Reason For Request: Bunn catheter malfunction/painful Chief Complaints: UTI/Pyelonephritis, Equipment-Related Allergies: No Known Comments: Cameroonian speaking member who denies any PMH, denies [...] KAYE Verified name//address Epifanio Mcintyre MD [address] [facility], [place], [address], [employer] 01/31/2024 19:05:57 02/06/2024 text/html HPI: Member asked for HV tomorrow after 10 AM if possible. Treated at the [facility] today, for F/u leaking, stated is [...] son Jame Wing. Member is 78 y/o Cameroonian speaking female who [facility] with her son. Member has [...] sees her BH counselor weekly and Prescriber MACHINE FILLER SERVICER [place] monthly if needed or every 2-3 months, .................... .................... .................... .................... .................... .................... .................... . CRC Nurse Triage Notes (Zafar Irving): Comments: Reviewed HPI .................... .................... .................... .................... .................... .................... .................... . Appliance Service Technician Note From [place]: Pt sts doesn t know why she has a bunn cath she has appt on Friday with urologist. Pt denies urinary pain lower abdominal pain CVa pain chest pain fever NVd. Pt was resting comfortably on arrival. Pt understands she will know more what s going on with her during appt Friday. Baseline vitals assessed. Vitals stable. Urine clear and light yellow. [facility] contacted and advised pt to rest and advised to make sure she goes to appt Friday. Pt son was used as case management assistant. Pt education on signs indicating the ER. Appliance Service Technician Allergies: Clindamycin .................... .................... .................... .................... .................... .................... .................... . Disposition: Fulfilled Rohit Benton MD [address] [facility], [place], [address], [place] [employer] [facility] [employer] 02/06/2024 17:58:19 OBGyn Episode No OBEpisode recorded.
--- OUTSIDE RECORDS SUMMARY | 2025-05-31 03:46 | XMS_ITS | Clinical Summary ---
Author Organization [facility] Facility Address [address] [address] Care Team Providers Care Employment Case Manager Name Role Phone Name, Nitin PIKE Primary Care Provider [phone] Allergies Active Allergy Reactions Criticality Noted Date [...] Date Last Done Comments Influenza Vaccine (#1) 2025 3, 07/26/2022, 07/28/2021, Additional history exists Pneumococcal Vaccine: 50+ Years Completed 07/21/2019, 06/08/2015, 09/08/2012 Pneumococcal Vaccine: Peds (0 to 5 Years) and At-Risk Patients (6 to 49 Years) Discontinued 07/21/2019, 06/08/2015, 09/08/2012 Hepatitis B Vaccine Aged Out No longe r eligible based on patient's age to complete this topic [place] [address] MCR ([id number]) [place] [phone] [facility] MCR ([id number]) Care Teams Employment Case Manager Relationship Specialty Start Date End Date Name, MD Nitin [address] [place] [id number] PCP - General Internal Medicine 10/15/22
--- OUTSIDE RECORDS SUMMARY | 2025-05-31 03:46 | XMS_ITS | Encounter Summary ---
Author Organization [employer] Address [address] [facility] [address] [place] [address] Care Team Providers Care Manager Production Name Role Phone Name, Nitin PIKE Primary Care Provider [phone] Reason for Visit * Reason Onset Date Comments Med Refill 11/08/2024 Encounter Details Date Type Department Care Team ([facility] st Contact Info) Description 11/08/2024 Telephone [facility] [address], [place] [id number] Name, MD Nitin [address] [place] [address] Med Refill Social History Tobacco Use Types [...] 5 MG tablet To be sent to: [facility] - [place], [place] - [address] [facility] documented in this encounter Plan of Treatment Upcoming Encounters Date Type Department Care Team ([facility] st Contact Info) Description 08/09/2025 11:15 AM EDT Office Visit [facility] [address] [place] [address] Name, MD Nitin [address] [place] [address] documented as of this encounter Visit Diagnoses Not on filedocumented in this encounter Additional Health Concerns Assessment Noted Time PHQ-9 Depression Total Score: 6 02/13/20 24 9:14 AM EDT documented as of this encounter Care Teams Manager Production Relationship Specialty Start Date End Date Name, MD Nitin [address] [place] [address] PCP - General Family Medicine 08/26/17 [facility] 09/01/24 documented as of this encounter
--- OUTSIDE RECORDS SUMMARY | 2025-05-31 03:46 | XMS_ITS | Clinical Summary ---
Author Organization [facility] Address [address] [place] [address] Phone Care Team Providers Care Table Filler Name Role Phone Physician, No Pcp Primary [...] 81 11/14/2024 10:48 PM EST Temperature 36.6 C (97.8 F) 11/14/2024 10:48 PM EST Respiratory Rate 18 11/14/2024 10:48 PM EST [...] Influencers of Health Screening 06/02/2024 Depression Screening 11/10/2024 COVID-19 Vaccine ( season) 2025 08/16/2024, 08/22/2022, 02/19/2022, Additional history exists Influenza Vaccine (#1) 2025 , 07/24/2023, 07/26/2022, Additional history exists Hypertension/CHF/CAD Annual BMP Blood Test 10/25/2025 10/25/2024, 09/22/2024, 08/16/2024, Additional history exists Cholesterol Screening (Lipid Panel) 09/19/2027 09/19/2022 DTaP,Tdap,and Td Vaccines (6 - Td or Tdap) 10/20/2033 10/20/2023, 07/06/2018, 12/02/2013, Additional history exists Zoster Vaccines Completed 01/19/2020, 09/15/2019 Pneumococcal Vaccine: 50+ Years Completed 12/26/2023, 07/21/2019, 06/08/2015, Additional history exists RSV Immunization Adult Patients Completed 12/26/2023 HIB Vaccines Aged Out No longer eligi [...] mmol/L LAB CHEMISTRY METHOD 09/22/2024 3:[address] [facility] Potassium 4.6 3.5 - 5.5 mmol/L LAB CHEMISTRY METHOD 09/22/2024 3:[address] [facility] Chloride 98 96 - 110 mmol/L LAB CHEMISTRY METHOD 09/22/2024 3:[address] [facility] CO2 28 21 - 32 mmol/L LAB CHEMISTRY METHOD 09/22/2024 3:[address] [facility] Anion Gap 6 3 - 11 LAB CHEMISTRY METHOD 09/22/2024 3:[address] [facility] Glucose 119(H) 70 - 100 mg/dL LAB CHEMISTRY METHOD 09/22/2024 3:[address] [facility] BUN 25 5 - 25 mg/dL LAB CHEMISTRY METHOD 09/22/2024 3:[address] [facility] Creatinine 1.18(H) 0.50 - 1.10 mg/dL LAB CHEMISTRY METHOD 09/22/2024 3:[address] [facility] eGFR 47(L) >=60 mL/min/1. 73m2 LAB CHEMISTRY METHOD 09/22/2024 3:[address] [facility] Comment:Calculation based on the Chronic Kidney Disease Epidemiology Collaboration (CKD-EPI) equation refit without adjustment for race. BUN/Creatinine Ratio 21.2 LAB CHEMISTRY METHOD 09/22/2024 3:[address] [facility] Calcium 9.3 8.5 - 10.5 mg/dL LAB CHEMISTRY METHOD 09/22/2024 3:[address] [facility] AST (SGOT) 37 10 - 42 unit/L LAB CHEMISTRY METHOD 09/22/2024 3:[address] [facility] ALT (SGPT) 25 10 - 60 unit/L LAB CHEMISTRY METHOD 09/22/2024 3:[address] [facility] Alkaline Phosphatase 77 42 - 121 unit/L LAB CHEMISTRY METHOD 09/22/2024 3:[address] [facility] Total Protein 8.0 6.0 - [...] Resul t [facility] [address] [place] [address], from Last 3 Months or Most Recently Relevant to Health Maintenance Insurance [facility] MEDICARE Member Subscriber Plan / Payer (Ef fective 2021-Present) Name:Noreen Wing Relation to Subscriber:Self Name:Noreen Wing Payer ID:[id number] Group ID:[id number] Type:Not on file Address: [address] [place] [address] [address] Care Teams Table Filler Relationship Specialty Start Date End Date Physician, No Pcp PCP - General 09/22/24
[2025-05-31 03:58] LABS: Glucose, Whole Blood 100 mg/dL (60-115)
[2025-05-31 04:04] VITALS: BP 132/75; PULSE 80; RESP 20; O2SAT 96
--- NOTE | 2025-05-31 05:34 | ED.ANXIETY ---
HPI - Anxiety General Chief Complaint: Anxiety Stated Complaint: Anxiety panic attack Time Seen by Provider: 05/31/25 05:32 Source: patient Mode of arrival: ambulatory Limitations: no limitations History of Present Illness ED Provider: Dr. Marta Briscoe HPI narrative: Patient comes to the emergency room complaining of anxiety. Patient states that she will get her medications from the pharmacy in 4 hours. Patient requesting a 1 time dose. Patient denies any other symptoms, denies chest pain or shortness of breath. Denies any recent falls. Patient denies SI or HI Related Data Home Medications ?Medication ?Instructions ?Recorded ?Confirmed mirtazapine 45 mg tablet 45 mg PO BEDTIME 08/09/20 03/16/25 omeprazole 20 mg tablet,delayed 20 mg PO DAILY@0630 08/09/20 03/16/25 release aspirin 81 mg tablet,delayed 81 mg PO QAM 01/28/24 03/16/25 release bisacodyl 5 mg tablet,delayed 5 mg PO DAILY PRN constipation 01/28/24 03/16/25 release diphenhydramine HCl 25 mg tablet 25 mg PO BEDTIME PRN itch 01/28/24 03/16/25 (Lou-Dryl) ferrous sulfate 325 mg (65 mg 325 mg PO DAILY 01/28/24 03/16/25 iron) tablet (FeroSul) melatonin 10 mg tablet,extended 10 mg PO BEDTIME PRN Insomnia 01/28/24 03/16/25 release multivitamin 1 tab PO QAM 01/28/24 03/16/25 rosuvastatin 20 mg tablet 20 mg PO BEDTIME 01/28/24 03/16/25 trazodone 50 mg tablet 50 mg PO BEDTIME 01/28/24 03/16/25 amlodipine 10 mg tablet 10 mg PO DAILY 02/09/24 03/16/25 acetaminophen 500 mg tablet 500 mg PO Q8H PRN pain 08/09/24 03/16/25 ipratropium bromide 21 mcg (0.03 2 spray intranasal BID 08/09/24 03/16/25 %) nasal spray zolpidem 5 mg tablet 5 mg PO BEDTIME PRN Insomnia 08/09/24 03/16/25 cholecalciferol (vitamin D3) 25 25 mcg PO DAILY 08/20/24 03/16/25 mcg (1,000 unit) tablet meclizine 25 mg tablet 25 mg PO DAILY PRN 09/29/24 03/16/25 sertraline 100 mg tablet 100 mg PO DAILY 03/16/25 03/16/25 Previous Rx's ?Medication ?Instructions ?Recorded metoprolol succinate 50 mg 50 mg PO DAILY #90 tabs 09/28/20 tablet,extended release 24 hr fluticasone propionate 50 2 spray intranasal DAILY #16 grams 09/16/23 mcg/actuation nasal spray,suspension (Flonase Allergy Relief) ondansetron 4 mg disintegrating 4 mg PO Q6H PRN nausea and 04/28/24 tablet vomiting #10 tabs hydroxyzine HCl 25 mg tablet 25 mg PO TID PRN anxiety #6 tabs 08/07/24 clonazepam 0.5 mg tablet 0.5 mg PO TID #180 tabs 08/10/24 gabapentin 100 mg capsule 100 mg PO TID #180 caps 08/10/24 hydroxyzine HCl 25 mg tablet 25 mg PO TID PRN anxiety #20 tabs 09/09/24 miconazole nitrate 2 % vaginal 1 appful vaginal BEDTIME 7 days 10/09/24 cream (Monistat 7) #45 grams nitrofurantoin 100 mg PO Q12H 3 days #6 caps 10/09/24 monohydrate/macrocrystals 100 mg capsule (Macrobid) miconazole nitrate 2 % topical 1 appl topical BID #28 grams 01/01/25 cream valsartan 160 mg tablet 160 mg PO DAILY #90 tabs 01/20/25 ofloxacin 0.3 % ear drops 10 drp otic (ears) DAILY 7 days #5 02/01/25 mL docusate sodium 100 mg capsule 200 mg (2 x 100 mg) PO BID #30 caps 02/07/25 (Col-Rite) polyethylene glycol 3350 17 17 g PO Q8H #238 grams 02/07/25 gram/dose oral powder (ClearLax) white petrolatum 41 % topical 1 appl topical BID PRN irritated 02/07/25 ointment (Advanced Healing skin #50 grams (Petrolatum)) azithromycin 250 mg tablet 250 mg PO DAILY 4 days #4 tabs 02/14/25 (Zithromax) docusate sodium 100 mg capsule 200 mg (2 x 100 mg) PO BID #20 caps 02/24/25 (Colace) polyethylene glycol 3350 17 17 g PO BID #119 grams 02/24/25 gram/dose oral powder (Miralax) simethicone 180 mg capsule 180 mg PO BID PRN abdominal 03/03/25 distention #14 caps clonazepam 0.5 mg tablet 0.5 mg PO DAILY #4 tabs 04/17/25 acetaminophen 500 mg tablet 500 mg PO Q6H PRN fever or pain 05/04/25 #30 tabs Allergies Allergy/AdvReac Type Severity Reaction Status Date / Time penicillin G (Penicillin G) Allergy Severe ITCHY/RASH Verified 05/31/25 03:19 Sulfa (Sulfonamide Allergy Severe ITCHY,RASH, Verified 05/31/25 03:19 Antibiotics) (Sulfa rash (Sulfonamides)) trimethoprim (From Bactrim) Allergy Severe HIVES Verified 05/31/25 03:19 Penicillins Allergy Intermediate Hives Verified 05/31/25 03:19 sulfamethoxazole (From Allergy Mild Hives Verified 05/31/25 03:19 Bactrim) Review of Systems Review of Systems: Constitutional : No Weight loss, No Fever, No Chills, No Night Sweats, No Fatigue, No Malaise ENT/Mouth : No Hearing loss, No Ear Pain, No Nasal Congestion, No Sinus Pain, No Hoarseness, No sore throat, No Rhinorrhea, No Swallowing Difficulty Eyes: No Eye Pain, No Swelling, No Redness, No Foreign Body, No Discharge, No Vision Changes Cardiovascular : No Chest Pain, No SOB, No Dyspnea on Exertion, No Orthopnea, No Edema, No Palpitations Respiratory : No Cough, No Sputum, No Wheezing, No Smoke Exposure, No Dyspnea Gastrointestinal : No Nausea, No Vomiting, No Diarrhea, No Constipation, No abdominal Pain, No Hematochezia, No Melena Genitourinary : no irregular bleeding, No Dysuria, No Urinary Frequency, No Hematuria, No Urinary Incontinence, No Urgency, No Flank Pain, No Urinary Flow Changes, No Hesitancy Musculoskeletal : No joint pain, No Myalgias, No Joint Swelling Skin : No Skin Lesions, No rash Neuro : No Weakness, No Numbness, No Paresthesias, No Loss of Consciousness, No Dizziness, No Headache Psych : Complaining of anxiety, No Depression, No SI/HI/AH/VH, No Social Issues, Heme/Lymph: No Bruising, No Bleeding,No Lymphadenopathy Endocrine : No Polyuria, No Polydipsia, No Temperature Intolerance [facility] Past Medical History 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 Oriented X3. No acute distress. Eyes: Pupils equal, round and reactive to light. ENT: Pharynx normal. Neck: Normal inspection. Neck supple. No lymph nodes noted. No crepitus CVS: Normal heart rate and rhythm. Pulses normal. Normal S1 and S2 Respiratory: No respiratory distress. Breath sounds normal. No Wheezing. No rales Abdomen: Soft and nontender. No rigidity. No distention. Skin: Skin warm and dry. Normal skin color. Normal skin turgor. Extremities: No lower extremity edema. No Lacerations. No Rash Neuro: Oriented X 3. No motor deficit. No sensory deficit. Moving all extremities. No slurred speech. CN 2 through 12 grossly intact Psych: calm, cooperative, a bit anxious Vital Signs: Vital Signs: Last Vital Signs Pulse 80 05/31/25 04:04 Resp 20 05/31/25 04:04 BP 132/75 05/31/25 04:04 Pulse Ox 96 05/31/25 04:04 O2 Del Method Room Air 05/31/25 04:04 BMI result Body Mass Index 33.5 Medical Decision Making Medical Decision Making MDM Narrative: Patient was given a dose of hydroxyzine. Patient states she feels much better. Patient states that her JEWELRY INSPECTOR will pick her up today and they will go steel pickler her meds from her pharmacy. Lab Data Labs: Lab Results 05/31/25 Range/Units 03:50 POC Glucose 100 (60-115) mg/dL Discharge Plan Discharge Clinical Impression: Generalized anxiety disorder with panic attacks Patient Disposition: Home, Self-Care Instructions: Anxiety (ED) Additional Instructions: Please follow-up with your primary care physician tomorrow. If you have any worsening or new symptoms, please return to the emergency room or call 911 Prescriptions: No Action metoprolol succinate 50 mg tablet extended release 24 hr 50 mg PO DAILY Qty: 90 2RF valsartan 160 mg tablet 160 mg PO DAILY Qty: 90 1RF mirtazapine 45 mg Tablet 45 mg PO BEDTIME omeprazole 20 mg Tablet,Delayed Release (Dr/Ec) 20 mg PO DAILY@0630 fluticasone propionate [Flonase Allergy Relief] 50 mcg/actuation spray,suspension 2 spray intranasal DAILY Qty: 16 0RF Rx Instructions: administer into each nostril hydroxyzine HCl 25 mg tablet 25 mg PO TID PRN (Reason: anxiety) Qty: 6 0RF hydroxyzine HCl 25 mg tablet 25 mg PO TID PRN (Reason: anxiety) Qty: 20 0RF miconazole nitrate 2 % cream 1 appl topical BID Qty: 28 0RF azithromycin [Zithromax] 250 mg tablet 250 mg PO DAILY 4 Days Qty: 4 0RF Rx Instructions: start on day 2 of therapy clonazepam 0.5 mg tablet 0.5 mg PO DAILY Qty: 4 0RF trazodone 50 mg tablet 50 mg PO BEDTIME ferrous sulfate [FeroSul] 325 mg (65 mg iron) tablet 325 mg PO DAILY diphenhydramine HCl [Lou-Dryl] 25 mg tablet 25 mg PO BEDTIME PRN (Reason: itch) bisacodyl 5 mg tablet,delayed release (DR/EC) 5 mg PO DAILY PRN (Reason: constipation) rosuvastatin 20 mg tablet 20 mg PO BEDTIME aspirin 81 mg tablet,delayed release (DR/EC) 81 mg PO QAM multivitamin Tablet 1 tab PO QAM melatonin 10 mg tablet extended release 10 mg PO BEDTIME PRN (Reason: Insomnia) cholecalciferol (vitamin D3) 25 mcg (1,000 unit) tablet 25 mcg PO DAILY ondansetron 4 mg tablet,disintegrating 4 mg PO Q6H PRN (Reason: nausea and vomiting) Qty: 10 0RF acetaminophen 500 mg tablet 500 mg PO Q8H PRN (Reason: pain) zolpidem 5 mg tablet 5 mg PO BEDTIME PRN (Reason: Insomnia) ipratropium bromide 21 mcg (0.03 %) spray,non-aerosol 2 spray intranasal BID clonazepam 0.5 mg Tablet 0.5 mg PO TID Qty: 180 0RF gabapentin 100 mg Capsule 100 mg PO TID Qty: 180 0RF nitrofurantoin monohyd/m-cryst [Macrobid] 100 mg capsule 100 mg PO Q12H 3 Days Qty: 6 0RF Rx Instructions: must administer with a meal/food miconazole nitrate [Monistat 7] 2 % cream 1 appful vaginal BEDTIME 7 Days Qty: 45 0RF ofloxacin 0.3 % drops 10 drp otic (ears) DAILY 7 Days Qty: 5 0RF docusate sodium [Col-Rite] 100 mg capsule 200 mg PO BID Qty: 30 0RF polyethylene glycol 3350 [ClearLax] 17 gram/dose powder 17 g PO Q8H Qty: 238 0RF Advanced Healing (Petrolatum) 41 % ointment 1 appl topical BID PRN (Reason: irritated skin) Qty: 50 0RF docusate sodium [Colace] 100 mg capsule 200 mg PO BID Qty: 20 0RF polyethylene glycol 3350 [Miralax] 17 gram/dose powder 17 g PO BID Qty: 119 0RF simethicone 180 mg capsule 180 mg PO BID PRN (Reason: abdominal distention) Qty: 14 0RF acetaminophen 500 mg tablet 500 mg PO Q6H PRN (Reason: fever or pain) Qty: 30 0RF sertraline 100 mg tablet 100 mg PO DAILY amlodipine 10 mg tablet 10 mg PO DAILY meclizine 25 mg tablet 25 mg PO DAILY PRN Print Language: Japanese
[2025-05-31 06:00] VITALS: BP 132/75; PULSE 80; RESP 20; TEMP 36.6; O2SAT 96
== END 2025-05-31 05:55 | disposition home or self-care (01) ==
PROVIDERS: Emergency Provider Emergency Medicine
DX: F41.9 Anxiety disorder, unspecified (principal); Z79.899 Other long term (current) drug therapy
CPT/HCPCS: 82947; 99284

== ENCOUNTER 2025-06-16 02:18 | Emergency (ER) | payer OTHER, SELFPAY ==
[2025-06-16 02:24] VITALS: BP 135/74; BP 172/88; PULSE 88; PULSE 97; RESP 18; TEMP 36.8; O2SAT 97; O2SAT 98; BMI 33.9
--- NOTE | 2025-06-16 03:44 | ED.ANXIETY ---
HPI - Anxiety General Chief Complaint: Anxiety Stated Complaint: anxiety HTN Time Seen by Provider: 06/16/25 03:26 Source: patient and EMS Mode of arrival: EMS Limitations: no limitations History of Present Illness ED Provider: Dr. Marta Briscoe HPI narrative: Patient comes to the emergency room complaining of anxiety. Patient states that she was supposed to get a refill of clonazepam 3 days ago, but states that her prescriber did not send the prescription and she has been out of clonazepam for the last few days. Patient states that she had so anxious that her blood pressure increases. Patient's takes her blood pressure at home, BP increases and then becomes more anxious. Patient denies any chest pain or shortness of breath, denies palpitations. Related Data Home Medications ?Medication ?Instructions ?Recorded ?Confirmed mirtazapine 45 mg tablet 45 mg PO BEDTIME 08/09/20 03/16/25 omeprazole 20 mg tablet,delayed 20 mg PO DAILY@0630 08/09/20 03/16/25 release aspirin 81 mg tablet,delayed 81 mg PO QAM 01/28/24 03/16/25 release bisacodyl 5 mg tablet,delayed 5 mg PO DAILY PRN constipation 01/28/24 03/16/25 release diphenhydramine HCl 25 mg tablet 25 mg PO BEDTIME PRN itch 01/28/24 03/16/25 (Lou-Dryl) ferrous sulfate 325 mg (65 mg 325 mg PO DAILY 01/28/24 03/16/25 iron) tablet (FeroSul) melatonin 10 mg tablet,extended 10 mg PO BEDTIME PRN Insomnia 01/28/24 03/16/25 release multivitamin 1 tab PO QAM 01/28/24 03/16/25 rosuvastatin 20 mg tablet 20 mg PO BEDTIME 01/28/24 03/16/25 trazodone 50 mg tablet 50 mg PO BEDTIME 01/28/24 03/16/25 amlodipine 10 mg tablet 10 mg PO DAILY 02/09/24 03/16/25 acetaminophen 500 mg tablet 500 mg PO Q8H PRN pain 08/09/24 03/16/25 ipratropium bromide 21 mcg (0.03 2 spray intranasal BID 08/09/24 03/16/25 %) nasal spray zolpidem 5 mg tablet 5 mg PO BEDTIME PRN Insomnia 08/09/24 03/16/25 cholecalciferol (vitamin D3) 25 25 mcg PO DAILY 08/20/24 03/16/25 mcg (1,000 unit) tablet meclizine 25 mg tablet 25 mg PO DAILY PRN 09/29/24 03/16/25 sertraline 100 mg tablet 100 mg PO DAILY 03/16/25 03/16/25 Previous Rx's ?Medication ?Instructions ?Recorded metoprolol succinate 50 mg 50 mg PO DAILY #90 tabs 09/28/20 tablet,extended release 24 hr fluticasone propionate 50 2 spray intranasal DAILY #16 grams 09/16/23 mcg/actuation nasal spray,suspension (Flonase Allergy Relief) ondansetron 4 mg disintegrating 4 mg PO Q6H PRN nausea and 04/28/24 tablet vomiting #10 tabs hydroxyzine HCl 25 mg tablet 25 mg PO TID PRN anxiety #6 tabs 08/07/24 clonazepam 0.5 mg tablet 0.5 mg PO TID #180 tabs 08/10/24 gabapentin 100 mg capsule 100 mg PO TID #180 caps 08/10/24 hydroxyzine HCl 25 mg tablet 25 mg PO TID PRN anxiety #20 tabs 09/09/24 miconazole nitrate 2 % vaginal 1 appful vaginal BEDTIME 7 days 10/09/24 cream (Monistat 7) #45 grams nitrofurantoin 100 mg PO Q12H 3 days #6 caps 10/09/24 monohydrate/macrocrystals 100 mg capsule (Macrobid) miconazole nitrate 2 % topical 1 appl topical BID #28 grams 01/01/25 cream valsartan 160 mg tablet 160 mg PO DAILY #90 tabs 01/20/25 ofloxacin 0.3 % ear drops 10 drp otic (ears) DAILY 7 days #5 02/01/25 mL docusate sodium 100 mg capsule 200 mg (2 x 100 mg) PO BID #30 caps 02/07/25 (Col-Rite) polyethylene glycol 3350 17 17 g PO Q8H #238 grams 02/07/25 gram/dose oral powder (ClearLax) white petrolatum 41 % topical 1 appl topical BID PRN irritated 02/07/25 ointment (Advanced Healing skin #50 grams (Petrolatum)) azithromycin 250 mg tablet 250 mg PO DAILY 4 days #4 tabs 02/14/25 (Zithromax) docusate sodium 100 mg capsule 200 mg (2 x 100 mg) PO BID #20 caps 02/24/25 (Colace) polyethylene glycol 3350 17 17 g PO BID #119 grams 02/24/25 gram/dose oral powder (Miralax) simethicone 180 mg capsule 180 mg PO BID PRN abdominal 03/03/25 distention #14 caps clonazepam 0.5 mg tablet 0.5 mg PO DAILY #4 tabs 04/17/25 acetaminophen 500 mg tablet 500 mg PO Q6H PRN fever or pain 05/04/25 #30 tabs Allergies Allergy/AdvReac Type Severity Reaction Status Date / Time penicillin G (Penicillin G) Allergy Severe ITCHY/RASH Verified 06/16/25 02:26 Sulfa (Sulfonamide Allergy Severe ITCHY,RASH, Verified 06/16/25 02:26 Antibiotics) (Sulfa rash (Sulfonamides)) trimethoprim (From Bactrim) Allergy Severe HIVES Verified 06/16/25 02:26 Penicillins Allergy Intermediate Hives Verified 06/16/25 02:26 sulfamethoxazole (From Allergy Mild Hives Verified 06/16/25 02:26 Bactrim) Review of Systems Review of Systems: Constitutional : No Weight loss, No Fever, No Chills, No Night Sweats, No Fatigue, No Malaise ENT/Mouth : No Hearing loss, No Ear Pain, No Nasal Congestion, No Sinus Pain, No Hoarseness, No sore throat, No Rhinorrhea, No Swallowing Difficulty Eyes: No Eye Pain, No Swelling, No Redness, No Foreign Body, No Discharge, No Vision Changes Cardiovascular : No Chest Pain, No SOB, No Dyspnea on Exertion, No Orthopnea, No Edema, No Palpitations Respiratory : No Cough, No Sputum, No Wheezing, No Smoke Exposure, No Dyspnea Gastrointestinal : No Nausea, No Vomiting, No Diarrhea, No Constipation, No abdominal Pain, No Hematochezia, No Melena Genitourinary : no irregular bleeding, No Dysuria, No Urinary Frequency, No Hematuria, No Urinary Incontinence, No Urgency, No Flank Pain, No Urinary Flow Changes, No Hesitancy Musculoskeletal : nNo Myalgias, No Joint Swelling Skin : No Skin Lesions, No rash Neuro : No Weakness, No Numbness, No Paresthesias, No Loss of Consciousness, No Dizziness, No Headache Psych : Complaining of anxiety No Depression, No SI/HI/AH/VH, No Social Issues, Heme/Lymph: No Bruising, No Bleeding,No Lymphadenopathy Endocrine : No Polyuria, No Polydipsia, No Temperature Intolerance [facility] Past Medical History 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 Oriented X3. No acute distress. Eyes: Pupils equal, round and reactive to light. ENT: Pharynx normal. Neck: Normal inspection. Neck supple. No lymph nodes noted. No crepitus CVS: Normal heart rate and rhythm. Pulses normal. Normal S1 and S2 Respiratory: No respiratory distress. Breath sounds normal. No Wheezing. No rales Abdomen: Soft and nontender. No rigidity. No distention. Skin: Skin warm and dry. Normal skin color. Normal skin turgor. Extremities: No lower extremity edema. No Lacerations. No Rash Neuro: Oriented X 3. No motor deficit. No sensory deficit. Moving all extremities. No slurred speech. CN 2 through 12 grossly intact Psych: calm, anxious Vital Signs: Vital Signs: Last Vital Signs Temp 98.2 F 06/16/25 02:24 Pulse 88 06/16/25 02:24 Resp 18 06/16/25 02:24 BP 135/74 06/16/25 02:24 Pulse Ox 98 06/16/25 02:24 O2 Del Method Room Air 06/16/25 02:24 BMI result Body Mass Index 33.9 Course Course Course Narrative: Patient complaining of anxiety, states that she ran out of her medications about 3 days ago Medical Decision Making Medical Decision Making [facility] Narrative: Patient was given the 1st dose of lorazepam 0.5 mg here in the emergency room. I discussed with the patient that she needs to talk with her primary care physician or psychiatrist about her refills. From the hospital we will not refill a long-term prescription of benzodiazepines. Patient agrees with plan. Discharge Plan Discharge Clinical Impression: Generalized anxiety disorder with panic attacks Patient Disposition: Home, Self-Care Instructions: Anxiety (ED) Additional Instructions: Please follow-up with your primary care physician tomorrow. If you have any worsening or new symptoms, please return to the emergency room or call 911 Prescriptions: No Action metoprolol succinate 50 mg tablet extended release 24 hr 50 mg PO DAILY Qty: 90 2RF valsartan 160 mg tablet 160 mg PO DAILY Qty: 90 1RF mirtazapine 45 mg Tablet 45 mg PO BEDTIME omeprazole 20 mg Tablet,Delayed Release (Dr/Ec) 20 mg PO DAILY@0630 fluticasone propionate [Flonase Allergy Relief] 50 mcg/actuation spray,suspension 2 spray intranasal DAILY Qty: 16 0RF Rx Instructions: administer into each nostril hydroxyzine HCl 25 mg tablet 25 mg PO TID PRN (Reason: anxiety) Qty: 6 0RF hydroxyzine HCl 25 mg tablet 25 mg PO TID PRN (Reason: anxiety) Qty: 20 0RF miconazole nitrate 2 % cream 1 appl topical BID Qty: 28 0RF azithromycin [Zithromax] 250 mg tablet 250 mg PO DAILY 4 Days Qty: 4 0RF Rx Instructions: start on day 2 of therapy clonazepam 0.5 mg tablet 0.5 mg PO DAILY Qty: 4 0RF trazodone 50 mg tablet 50 mg PO BEDTIME ferrous sulfate [FeroSul] 325 mg (65 mg iron) tablet 325 mg PO DAILY diphenhydramine HCl [Lou-Dryl] 25 mg tablet 25 mg PO BEDTIME PRN (Reason: itch) bisacodyl 5 mg tablet,delayed release (DR/EC) 5 mg PO DAILY PRN (Reason: constipation) rosuvastatin 20 mg tablet 20 mg PO BEDTIME aspirin 81 mg tablet,delayed release (DR/EC) 81 mg PO QAM multivitamin Tablet 1 tab PO QAM melatonin 10 mg tablet extended release 10 mg PO BEDTIME PRN (Reason: Insomnia) cholecalciferol (vitamin D3) 25 mcg (1,000 unit) tablet 25 mcg PO DAILY ondansetron 4 mg tablet,disintegrating 4 mg PO Q6H PRN (Reason: nausea and vomiting) Qty: 10 0RF acetaminophen 500 mg tablet 500 mg PO Q8H PRN (Reason: pain) zolpidem 5 mg tablet 5 mg PO BEDTIME PRN (Reason: Insomnia) ipratropium bromide 21 mcg (0.03 %) spray,non-aerosol 2 spray intranasal BID clonazepam 0.5 mg Tablet 0.5 mg PO TID Qty: 180 0RF gabapentin 100 mg Capsule 100 mg PO TID Qty: 180 0RF nitrofurantoin monohyd/m-cryst [Macrobid] 100 mg capsule 100 mg PO Q12H 3 Days Qty: 6 0RF Rx Instructions: must administer with a meal/food miconazole nitrate [Monistat 7] 2 % cream 1 appful vaginal BEDTIME 7 Days Qty: 45 0RF ofloxacin 0.3 % drops 10 drp otic (ears) DAILY 7 Days Qty: 5 0RF docusate sodium [Col-Rite] 100 mg capsule 200 mg PO BID Qty: 30 0RF polyethylene glycol 3350 [ClearLax] 17 gram/dose powder 17 g PO Q8H Qty: 238 0RF Advanced Healing (Petrolatum) 41 % ointment 1 appl topical BID PRN (Reason: irritated skin) Qty: 50 0RF docusate sodium [Colace] 100 mg capsule 200 mg PO BID Qty: 20 0RF polyethylene glycol 3350 [Miralax] 17 gram/dose powder 17 g PO BID Qty: 119 0RF simethicone 180 mg capsule 180 mg PO BID PRN (Reason: abdominal distention) Qty: 14 0RF acetaminophen 500 mg tablet 500 mg PO Q6H PRN (Reason: fever or pain) Qty: 30 0RF sertraline 100 mg tablet 100 mg PO DAILY amlodipine 10 mg tablet 10 mg PO DAILY meclizine 25 mg tablet 25 mg PO DAILY PRN Print Language: Wolof
[2025-06-16 04:04] VITALS: BP 119/67; PULSE 87; RESP 18; TEMP 36.8; O2SAT 98
== END 2025-06-16 04:05 | disposition home or self-care (01) ==
PROVIDERS: Emergency Provider Emergency Medicine
DX: F41.0 Panic disorder [episodic paroxysmal anxiety] (principal); F41.1 Generalized anxiety disorder
CPT/HCPCS: 99283; 99284

== ENCOUNTER 2025-06-16 08:26 | Emergency (ER) | payer OTHER, SELFPAY ==
[2025-06-16 08:32] VITALS: BP 152/84; PULSE 103; O2SAT 97
[2025-06-16 08:34] VITALS: BP 146/70; PULSE 90; RESP 24; TEMP 36.6; O2SAT 95; BMI 27.4
--- OUTSIDE RECORDS SUMMARY | 2025-06-16 09:45 | XMS_ITS | Encounter Summary ---
Author Organization [employer] Address [address] [facility] [address] [place] [address] Care Team Providers Care Print Finisher Name Role Phone Name, Nitin PIKE Primary Care Provider [phone] Reason for Visit * Reason Onset Date Comments Med Refill 11/08/2024 Encounter Details Date Type Department Care Team ([facility] st Contact Info) Description 11/08/2024 Telephone [facility] [address] [place], [place] [phone] Name, MD Nitin [address] [place] [address] Med Refill Social History Tobacco Use Types [...] 5 MG tablet To be sent to: [facility] - [place], [place] - [address] [facility] documented in this encounter Plan of Treatment Upcoming Encounters Date Type Department Care Team ([facility] st Contact Info) Description 08/09/2025 11:15 AM EDT Office Visit [facility] [address] [place] [address] Name, MD Nitin [address] [place] [address] documented as of this encounter Visit Diagnoses Not on filedocumented in this encounter Additional Health Concerns Assessment Noted Time PHQ-9 Depression Total Score: 6 02/13/20 24 9:14 AM EDT documented as of this encounter Care Teams Print Finisher Relationship Specialty Start Date End Date Name, MD Nitin [address] [place] [address] PCP - General Family Medicine 08/26/17 [facility] 09/01/24 documented as of this encounter
--- OUTSIDE RECORDS SUMMARY | 2025-06-16 09:45 | XMS_ITS | Clinical Summary ---
Author Organization [facility] Address [address] [place] [address] Phone Care Team Providers Care Roll Up Guider Operator Name Role Phone Physician, No Pcp Primary [...] mmol/L LAB CHEMISTRY METHOD 09/22/2024 3:15 AM [facility] Potassium 4.6 3.5 - 5.5 mmol/L LAB CHEMISTRY METHOD 09/22/2024 3:15 AM [facility] Chloride 98 96 - 110 mmol/L LAB CHEMISTRY METHOD 09/22/2024 3:15 AM [facility] CO2 28 21 - 32 mmol/L LAB CHEMISTRY METHOD 09/22/2024 3:15 AM [facility] Anion Gap 6 3 - 11 LAB CHEMISTRY METHOD 09/22/2024 3:15 AM [facility] Glucose 119(H) 70 - 100 mg/dL LAB CHEMISTRY METHOD 09/22/2024 3:15 AM [facility] BUN 25 5 - 25 mg/dL LAB CHEMISTRY METHOD 09/22/2024 3:15 AM [facility] Creatinine 1.18(H) 0.50 - 1.10 mg/dL LAB CHEMISTRY METHOD 09/22/2024 3:15 AM [facility] eGFR 47(L) >=60 mL/min/1. 73m2 LAB CHEMISTRY METHOD 09/22/2024 3:15 AM [facility] Comment:Calculation based on the Chronic Kidney Disease Epidemiology Collaboration (CKD-EPI) equation refit without adjustment for race. BUN/Creatinine Ratio 21.2 LAB CHEMISTRY METHOD 09/22/2024 3:15 AM [facility] Calcium 9.3 8.5 - 10.5 mg/dL LAB CHEMISTRY METHOD 09/22/2024 3:15 AM [facility] AST (SGOT) 37 10 - 42 unit/L LAB CHEMISTRY METHOD 09/22/2024 3:15 AM [facility] ALT (SGPT) 25 10 - 60 unit/L LAB CHEMISTRY METHOD 09/22/2024 3:15 AM [facility] Alkaline Phosphatase 77 42 - 121 unit/L LAB CHEMISTRY METHOD 09/22/2024 3:15 AM [facility] Total Protein 8.0 6.0 - 8.0 g/dL LAB CHEMISTRY METHOD 09/22/2024 3:15 AM EST [facility] Albumin 4.2 3.2 - 5.0 g/dL LAB CHEMISTRY METHOD 09/22/2024 3:15 AM EST [facility] Total Bilirubin 0.4 0.0 - 1.4 mg/dL LAB CHEMISTRY METHOD 09/22/2024 3:15 AM EST [facility] Blood Venous blood specimen / Unknown Venipuncture / Unknown 09/22/2024 2:28 AM EST 09/22/2024 2:31 AM EST Paul RUIZ LAB BLOOD ORDERABLES Final Resul t [facility] [address] [place] [address], from Last 3 Months or Most Recently Relevant to Health Maintenance Insurance [facility] MEDIC[facility] Member Subscriber Plan / Payer (Ef fective 2021-Present) Name:Noreen Wing Relation to Subscriber:Self Name:Noreen Wing Payer ID:[id number] Group ID:[id number] Type:Not on file Address: [address] [phone] Care Teams Roll Up Guider Operator Relationship Specialty Start Date End Date Physician, No Pcp PCP - General 09/22/24
--- OUTSIDE RECORDS SUMMARY | 2025-06-16 09:45 | XMS_ITS | Clinical Summary ---
Author Organization [facility] Address [address] [address] Care Team Providers Care Stereotype Caster Name Role Phone Name, Nitin PIKE Primary Care Provider Unavailabl e Allergies Active Allergy Reactions Criticality Noted Date [...] Last Done Comments Influenza Vaccine (#1) 2025 , 07/26/2022, 07/28/2021, Additional history exists Pneumococcal Vaccine: 50+ Years Completed 07/21/2019, 06/08/2015, 09/08/2012 Pneumococcal Vaccine: Peds (0 to 5 Years) and At-Risk Patients (6 to 49 Years) Discontinued 07/21/2019, 06/08/2015, 09/08/2012 Hepatitis B Vaccine Aged Out No longe r eligible based on patient's age to complete this topic Insurance [facility] MCR ([id number]) [place] [phone] [facility] MCR ([id number]) [place] [phone] Care Teams Stereotype Caster Relationship Specialty Start Date End Date Name, MD Nitin PCP - General Internal Medicine 10/15/22
== END 2025-06-16 09:26 | disposition left against medical advice (07) ==
LOC: HO.ED 09:22
PROVIDERS: Emergency Provider Emergency Medicine; PCP Internal Medicine Geriatric Medicine
DX: F41.0 Panic disorder [episodic paroxysmal anxiety] (principal); Z79.899 Other long term (current) drug therapy; Z76.0 Encounter for issue of repeat prescription
CPT/HCPCS: 99281

== ENCOUNTER 2025-07-18 06:08 | Emergency (ER) | payer OTHER, SELFPAY ==
[2025-07-18 06:18] VITALS: BP 142/86; BP 145/82; PULSE 80; PULSE 98; RESP 18; TEMP 36.9; O2SAT 96; O2SAT 97; BMI 37.1
--- OUTSIDE RECORDS SUMMARY | 2025-07-18 06:24 | XMS_ITS | Encounter Summary ---
Author Organization [employer] Address [address] [facility] [address] [place] [address] Care Team Providers Care Elementary Secretary Name Role Phone Name, Nitin PIKE Primary Care Provider [phone] Encounter Details Date Type Department Care Team ([facility] Contact Info) Description 12/17/2022 Orders Only [facility] P[facility]S [address] [place], [place] [phone] Lisha Kelly LPN Social History Tobacco Use [...] Care Team (Late st Contact Info) Description 08/09/2025 11:15 AM EDT Office Visit [facility] [address] [place] [address] Nitin Echevarria MD [address] [place] [address] documented as of this encounter Visit Diagnoses Not on filedocumented in this encounter Care Teams Elementary Secretary Relationship Specialty Start Date End Date NameNitin MD [address] [place] [address] PCP - General Family Medicine 08/26/17 [facility] 09/01/24 documented as of this encounter
--- OUTSIDE RECORDS SUMMARY | 2025-07-18 06:24 | XMS_ITS | Encounter Summary ---
Author Organization [employer] Address [address] [facility] [address] [place] [address] Care Team Providers Care Conductor Sleeping Car Name Role Phone Name, Nitin PIKE Primary Care Provider [phone] Reason for Visit * Reason Comments Med Refill Encounter Details Date Type Department Care Team (Late Contact Info) Description 03/02/2023 Refill [facility] [address] [place] [phone] Karely Patiño MD [address] [place] [phone] Social History Tobacco Use Types Packs/Day Years [...] Description 08/09/2025 11:15 AM EDT Office Visit [facility] [address] [place] [phone] Wale, MD Nitin [address] [place] [address] documented as of this encounter Visit Diagnoses Not on filedocumented in this encounter Care Teams Conductor Sleeping Car Relationship Specialty Start Date End Date Name, MD Nitin [address] [place] [address] PCP - General Family Medicine 08/26/17 [facility] 09/01/24 documented as of this encounter
--- OUTSIDE RECORDS SUMMARY | 2025-07-18 06:24 | XMS_ITS | Encounter Summary ---
Author Organization [employer] Address [address] [facility] [address] [place] [address] Care Team Providers Care Diet Technician Registered Name Role Phone Name, Nitin PIKE Primary Care Provider [phone] Reason for Visit * Reason Onset Date Comments triage 12/18/2022 Encounter Details Date Type Department Care Team ([facility] st Contact Info) Description 12/18/2022 Telephone [facility] [address] [place], [place] [phone] Name, MD Nitin [address] [place] [address] triage Social History Tobacco Use Types Packs/Day [...] 12/18/2022 2:35 PM EST 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 Pt. States that she has a [...] phone. Please reach out to pt. With Bhutanese speaking another time to see what her [...] Description 08/09/2025 11:15 AM EDT Office Visit [facility] [address] [place] [phone] Name, MD Nitin [address] [place] [address] documented as of this encounter Visit Diagnoses Not on filedocumented in this encounter Care Teams Diet Technician Registered Relationship Specialty Start Date End Date Name, MD Nitin [address] [place] [phone] PCP - General Family Medicine 08/26/17 [facility] 09/01/24 documented as of this encounter
--- OUTSIDE RECORDS SUMMARY | 2025-07-18 06:24 | XMS_ITS | Encounter Summary ---
Author Organization [employer] Address [address] [facility] [address] [place] [address] Care Team Providers Care Sulfuric Acid Plant Operator Name Role Phone Name, Nitin PIKE Primary Care Provider [phone] Encounter Details Date Type Department Care Team ([facility] st Contact Info) Description 05/26/2023 Orders Only [facility] MED[facility]INE [address] [place] [address] Noreen Fox MD [address] [place] [address] Social History Tobacco Use Types Packs/Day Years [...] Description 08/09/2025 11:15 AM EDT Office Visit [facility] [address] [place] [address] Name, MD Nitin [address] [place] [address] documented as of this encounter Visit Diagnoses Not on filedocumented in this encounter Care Teams Sulfuric Acid Plant Operator Relationship Specialty Start Date End Date Name, MD Nitin [address] [place] [address] PCP - General Family Medicine 08/26/17 [facility] 09/01/24 documented as of this encounter
--- OUTSIDE RECORDS SUMMARY | 2025-07-18 06:24 | XMS_ITS | Encounter Summary ---
Author Organization [employer] Address [address] [facility] [address] [place] [address] Care Team Providers Care Medical Center Representative Name Role Phone Name, Nitin PIKE Primary Care Provider [phone] Encounter Details Date Type Department Care Team ([facility] Contact Info) Description 01/06/2023 Orders Only [facility] MED & PEDS [address] [place], [place] [phone] Lisha Kelly LPN Social History Tobacco Use [...] Description 08/09/2025 11:15 AM EDT Office Visit [facility]INE [address] [place], [place] [phone] Name, MD Nitin [address] [place] [address] documented as of this encounter Visit Diagnoses Not on filedocumented in this encounter Care Teams Medical Center Representative Relationship Specialty Start Date End Date Name, MD Nitin [address] [place] [address] PCP - General Family Medicine 08/26/17 [facility] 09/01/24 documented as of this encounter
--- OUTSIDE RECORDS SUMMARY | 2025-07-18 06:24 | XMS_ITS | Encounter Summary ---
Author Organization [employer] Address [address] [facility] [address] [place] [address] Care Team Providers Care Social Secretary Name Role Phone Name, Nitin PIKE Primary Care Provider [phone] Reason for Visit * Reason Onset Date Comments Results 08/29/2023 Encounter Details Date Type Department Care Team ([facility] st Contact Info) Description 08/29/2023 Telephone [facility] MED[facility]INE [address] [place], [place] [phone] Name, MD Nitin [address] [place] [address] Results Social History Tobacco Use Types Packs/Day [...] 09/01/2023 11:51 AM EDT Pt evaluated in [facility] today and is scheduled with pcp 09/03/23. * Telephone Encounter - Janette Huitron - 08/29/2023 4:06 PM EDT Tc from pt requesting a call in regards to urine results. Please contact pt at [phone] (Japanese) documented in this encounter Plan of Treatment Upcoming Encounters Date Type Department Care Team (Late st Contact Info) Description 08/09/2025 11:15 AM EDT Office Visit [facility] [address] [place] [phone] Name, MD Nitin [address] [place] [address] documented as of this encounter Visit Diagnoses Not on filedocumented in this encounter Additional Health Concerns Assessment Noted Time PHQ-9 Depression Total Score: 12 023 9:37 AM EDT documented as of this encounter Care Teams Social Secretary Relationship Specialty Start Date End Date NameNitin MD [address] [place] [phone] PCP - General Family Medicine 08/26/17 [facility] 09/01/24 documented as of this encounter
--- OUTSIDE RECORDS SUMMARY | 2025-07-18 06:24 | XMS_ITS | Encounter Summary ---
Author Organization [employer] Address [address] [facility] [address] [place] [address] Care Team Providers Care [place] Name Role Phone Name, Nitin PIKE Primary Care Provider [phone] Reason for Visit * Reason Onset Date Comments ER Follow-up 05/31/2024 Encounter Details Date Type Department Care Team ([facility] Contact Info) Description 05/31/2024 Telephone [facility] [address] [place], [place] [phone] Name, MD Nitin [address] [place] [address] ER Follow-up Social History Tobacco Use Types [...] 05/31/2024 1:36 PM EDT T/C to Pat ([facility]) [phone] for below message, no answer. LVM to call back on [phone]. * Telephone Encounter - Melany Santos RN - 05/31/2024 1:32 PM EDT DAVID T/C to pt. Through [facility] id - [id number] for below message, pt. Had recent fall and ED visit at [facility]. RN will request GRACE piedra from [facility]. Pt. Is doing good, states I am tired andsleeping. Pt. Dose not has any question or concern right now. Pt. Already has HDF apt. Schedule on 06/10/2024. Pt. Advised to give call to [facility] if any questions or concerns. Pt. Verbally agreed and understood. Please review and advise if needed. * Telephone Encounter - Adithya Solorzano - 05/31/2024 12:50 PM EDT Patient calling to report ED visit on : Date: 05/26 Hospital: [facility] Seen for: Fall, Back Pain Pat stated pt is requesting a sooner apt with pcp due to recent ER visit. PT is also requesting order for PT services for to go along with [facility]. documented in this encounter Plan of Treatment Upcoming Encounters Date Type Department Care Team (Late st Contact Info) Description 08/09/2025 11:15 AM EDT Office Visit [facility] [address] [place] [address] Name, MD Nitin [address] [place] [address] documented as of this encounter Visit Diagnoses Not on filedocumented in this encounter Additional Health Concerns Assessment Noted Time PHQ-9 Depression Total Score: 6 02/13/20 24 9:14 AM EDT documented as of this encounter Care Teams [place] Relationship Specialty Start Date End Date Name, MD Nitin [address] [place] [id number] PCP - General Family Medicine 08/26/17 [facility] 09/01/24 documented as of this encounter
--- OUTSIDE RECORDS SUMMARY | 2025-07-18 06:24 | XMS_ITS | Encounter Summary ---
Author Organization [employer] Address [address] [facility] [address] [place] [address] Care Team Providers Care Spine Surgeon Name Role Phone Name, Nitin PIKE Primary Care Provider [phone] Reason for Visit * Reason Comments Med Refill Encounter Details Date Type Department Care Team ([facility] st Contact Info) Description 06/28/2024 Refill [facility] [address] [place], [place] [phone] Mel Anguiano FNP [address] [place] [address] Social History Tobacco Use Types Packs/Day Years [...] 08/09/2025 11:15 AM EDT Office Visit [facility] MED[facility]INE [address] [place] [phone] Name, MD Nitin [address] [place] [address] documented as of this encounter Visit Diagnoses Not on filedocumented in this encounter Additional Health Concerns Assessment Noted Time PHQ-9 Depression Total Score: 6 02/13/20 24 9:14 AM EDT documented as of this encounter Care Teams Spine Surgeon Relationship Specialty Start Date End Date Name, MD Nitin [address] [place] [phone] PCP - General Family Medicine 08/26/17 [facility] 09/01/24 documented as of this encounter
--- OUTSIDE RECORDS SUMMARY | 2025-07-18 06:24 | XMS_ITS | Clinical Summary ---
Author Organization [employer] Address [address] [place] [address] [address] [place] [address] Care Team Providers Care Pie Topper Name Role Phone Name, Nitin PIKE Primary Care Provider [phone] Allergies Active Allergy Reactions Criticality Noted Date [...] reaction(s): unknown Trimethoprim Hives High 02/24/2023 Medications neomycin-polymyxi n-hydrocortisone (Cortisporin) otic solution 023 Active zolpidem (Ambien) 5 MG tablet Take 5 mg by mouth if needed at bedtime. 023 Active loratadine (Claritin) 10 MG tablet TAKE 1 TABLET BY MOUTH EVERY DAY 90 tablet 1 023 Active ofloxacin (Floxin) 0.3 % otic solutionIndicatio ns:Recurrent acute serous otitis media of left ear INSTILL 5 DROPS INTO THE LEFT EAR 2 TIMES A DAY FOR 7 DAYS 10 mL 023 Active Blood Pressure Monitoring (3 Series BP Monitor/Upper Arm) device 1 Units in the morning. 1 each Active mirtazapine (Remeron) 45 MG tabletIndications :Depressive disorder TAKE 1 TABLET BY MOUTH AT BEDTIME 30 tablet 2 Active hydrocortisone 2.5 % creamIndications: Rash Apply topically 2 times daily. 30 g [...] hours. 30 mL 2 024 2024 Active gabapentin (Neurontin) 100 MG capsule Active azithromycin (Zithromax Z-Alirio) 250 MG tablet Take 2 tabs day 1 and then 1 tab daily to finish 6 tablet Active Acetaminophen Extra Strength 500 MG tabletIndications :Chronic bilateral low back pain without sciatica TAKE 1 TABLET BY MOUTH EVERY 8 HOURS NEEDED FOR PAIN (TELUGU LABEL) 90 tablet Active ammonium lactate (Lac-Hydrin) [...] 3 024 Active zolpidem (Ambien) 5 MG tabletIndications :Primary insomnia Take 1 tablet (5 mg) by mouth if needed at bedtime for sleep for up to 7 days. 7 tablet 025 Active amLODIPine (Norvasc) 10 MG tabletIndications :Hypertension, unspecified type TAKE 1 TABLET BY MOUTH EVERY MORNING 90 tablet 1 025 Active linaCLOtide (Linzess) 145 MCG capsuleIndication s:Chronic constipation Do not crush or chew.TAKE 1 CAPSULE BY MOUTH EVERY DAY BEFORE BREAKFAST, DO NOT BREAK, CRUSH, DISSOLVE OR CHEW 30 capsule 025 Active hydrOXYzine pamoate (Vistaril) 50 MG capsuleIndication s:Generalized anxiety disorder with panic attacks TAKE 1 CAPSULE BY MOUTH EVERY 8 HOURS NEEDED FOR ANXIETY 30 capsule 025 Active omeprazole (PriLOSEC) [address] capsuleIndication s:Heartburn TAKE 1 CAPSULE BY MOUTH EVERY MORNING 1 HOUR BEFORE BREAKFAST 90 capsule 1 025 Active gabapentin (Neurontin) 100 MG capsule Take 1 capsule (100 mg) by mouth 2 times daily for 1 day. 2 capsule 025 Active meclizine (Antivert) 25 MG tabletIndications :Vertigo TAKE 1 TABLET BY MOUTH EVERY DAY NEEDED 30 tablet 025 Active fluticasone (Flonase Allergy Relief) 50 MCG/ACT nasal sprayIndications: Allergic rhinitis, unspecified seasonality, unspecified trigger SPRAY 1 TO 2 SPRAYS INTO EACH NOSTRIL EVERY DAY 16 g 1 025 Active mometasone (Elocon) 0.1 % ointment Apply topically Once per day. 45 g 025 2025 Active Ferrous Sulfate (iron) 325 (65 Fe) MG tablet TAKE 1 TABLET BY MOUTH EVERY MORNING WITH FOOD 30 tablet 025 Active clonazePAM (KlonoPIN) 0.5 MG tablet Take 1 tablet (0.5 mg) by mouth 3 times daily for 7 days. 21 tablet 025 Active Aspirin Low Dose 81 MG EC tabletIndications :Prediabetes TAKE 1 TABLET BY MOUTH EVERY MORNING 90 tablet 1 025 Active cholecalciferol (Vitamin D-3) 25 MCG tabletIndications :Vitamin D deficiency TAKE 1 TABLET BY MOUTH TWICE DAILY IN THE MORNING AND IN THE EVENING 60 tablet 025 Active docusate sodium (Colace) 100 MG capsule TAKE 2 CAPSULES BY MOUTH TWICE DAILY 120 capsule 025 Active Ketotifen Fumarate 0.035 % solutionIndicatio ns:Acute conjunctivitis of left eye, unspecified acute conjunctivitis type Administer 1 drop into affected eye(s) if needed in the morning and at bedtime (allergies). 10 mL 025 Active docusate sodium (Colace) 100 MG capsule 023 2024 Discontinued Aspirin Adult Low Strength 81 MG EC tabletIndications :Prediabetes TAKE 1 TABLET BY MOUTH EVERY MORNING 90 tablet 1 025 2024 Discontinued cholecalciferol (Vitamin D-3) 25 MCG tabletIndications :Vitamin D deficiency TAKE 1 TABLET BY MOUTH [...] be done by her psychiatrist Dr Perea F/catherine with psychiatrist Nausea 02/12/2024 Suprapubic discomfort 02/12/2024 [...] to leave given she had another appt. Generalized anxiety disorder with panic attacks 12/18/2022 [...] because it calms her down. I called [facility] pharmacy to attempt a med rec they instructed me that she is on med box and one week at a time prescriptions because she would break into her med boxes to take more Ambien or xanax. She is being seen by Izzy Perea at [facility]. He is aware of her [...] left I received a call from the [facility] pharmacy instructing me that she was [...] Encounters Date Type Department Care Team Description 07/17/[address] [facility] [address] [place] [phone] Nitin Echevarria MD Hypertension, unspecified type 07/07/2025 8:40 AM EDT Office Visit [facility] [address] [address] Zach Javier MD Acute conjunctivitis of left eye, unspecified acute conjunctivitis type (Primary Dx) 07/07/2025 Travel 07/01/2025 9:20 AM EDT [facility] [address] [address] Zach Javier MD Pedal edema (Primary Dx) 07/01/2025 Travel 06/28/[address] [facility] [address] [place] [address] Nitin Echevarria MD 06/27/[address] [facility] [address], [place] [phone] Nitin Echevarria MD Vitamin D deficiency 06/19/[address] [facility] [address] [address] Nitin Echevarria MD Prediabetes 06/17/2025 9:30 AM EDT Office Visit [facility] [address] [place] [phone] Thea Warren, NOLVIA Generalized anxiety disorder with panic attacks (Primary Dx); Essential (primary) hypertension 06/17/2025 Travel 06/17/[address] [facility] [address] [place] [phone] Nitin Echevarria MD Med Refill (Pt is ) 06/08/[address] [facility] [address], [place] [phone] Nitin Echevarria MD 05/25/[address] [facility] [address] [place] [address] Miryam Riley NP Vitamin D deficiency 05/11/[address] [facility] [address] [place] [address] Nitin Echevarria MD 05/06/2025 9:30 AM EDT Clinical Support [address] [address] Betina Slade, VARGAS Impacted cerumen of right ear [H61.21] 05/06/2025 Results Follow-Up [address] [address] Nitin Echevarria MD Urinalysis, Complete, with Reflex to Culture, Drug Monitoring, Panel 1, Screen, Urine, Culture, Urine, Routine 05/06/2025 Travel 05/04/2025 Orders Only GENERIC EXTERNAL DATA DEPARTMENT Provider, Generic External Data 04/29/2025 10:00 AM EDT Office Visit [facility] [address] [place] [phone] Nitin Echevarria MD Generalized anxiety disorder with panic attacks (Primary Dx); Decreased hearing of both ears; Impacted cerumen of right ear; Rash 04/29/2025 Travel 04/27/[address] [address] Ariel David [place] CHARTPREP 04/20/[address] [facility] [address] [place] [address] Nitin Echevarria MD Vitamin D deficiency; Vertigo; Allergic rhinitis, unspecified seasonality, unspecified trigger 04/20/[address] [facility] [address] [place] [phone] Zechariah Cheung MD Allergic rhinitis, unspecified seasonality, unspecified trigger from Last 3 Months Immunizations Immunization Administration [...] Answer Date Recorded Patient Health Questionnaire-9 Score 3 04/29/2025 Patient Health Questionnaire-9 Score 3 04/29/2025 Last PHQ-9: Questionnaire Data Not on file 0 04/29/2025 Housing Stability Answer Date Recorded What is [...] Date Recorded Patient Health Questionnaire-2 Score 3 04/29/2025 Internet Access Answer Date Recorded Internet Access [...] Sign Reading Time Taken Comments Blood Pressure 146/83 07/07/2025 8:48 AM EDT Pulse 90 07/07/2025 8:48 AM EDT Temperature 35.1 C (95.1 F) 07/07/2025 8:48 AM EDT Respiratory Rate 21 07/07/2025 8:48 AM EDT Oxygen Saturation 98% 07/07/2025 8:48 AM EDT Inhaled Oxygen Concentration - - Weight 83.7 kg (184 lb 9.6 oz) 07/07/2025 8:48 A M EDT Height 162.6 cm (5' 4 ) 07/07/2025 8:48 AM EDT Body Mass Index 31.69 07/07/2025 8:48 AM EDT Plan of Treatment Upcoming Encounters Date Type Department Care Team (Late st Contact Info) Description 08/09/2025 11:15 AM EDT Office Visit [facility] [address] [facility] [place] [address] Name, MD [place] [address] Health Maintenance Due Date Last Done Comments Alcohol/Substance Use Screening 1957 SDOH Screening 06/14/2025 06/14/2024 COVID-19 Vaccine ( season) 2025 08/16/2024, 08/22/2022, 08/22/2022, Additional history exists Influenza Vaccine (#1) 2025 , 07/24/2023, 07/26/2022, Additional history exists Diabetes: Hemoglobin A1C 01/10/2026 025, 06/02/2023, 12/25/2022, Additional history exists Depression Screening 04/29/2026 04/29/2025, 04/29/20 25 Tobacco Screening 06/17/2026 06/17/2025 Lipid Panel 09/19/2027 09/19/2022, 01/08, 04/12/2021 DTaP/Tdap/Td Vaccines (5 - Td or Tdap) 10/20/2033 10/20/2023, 07/06/2018, 12/02/2013, Additional history exists Zoster Vaccines Completed 01/19/2020, 01/08, 09/15/2019, Additional history exists Pneumococcal Vaccine: 50+ Years Completed 12/26/2023, 07/21/2019, 06/08/2015, Additional history exists RSV Patients and Patients Aged 60 years or older Completed 12/26/2023 HIB Vaccines Aged Out No [...] Procedure Name Priority Date/Time Associated Diagnosis Comments DRUG MONITOR, PANEL 1, SCREEN, URINE Routine 05/04/2025 11:33 PM EDT URINALYSIS, COMPLETE, WITH REFLEX TO CULTURE Routine 05/04/2025 11:[address] SINUS FACIAL BONES WO CONTRAST Routine 05/04/2025 11:[address] HEAD WO CONTRAST Routine 05/04/2025 1 1:[address] CERVICAL SPINE WO CONTRAST Routine 05/04/2025 11:21 PM EDT CULTURE, URINE, ROUTINE Routine 05/04/2025 12:00 AM EDT POCT GLYCATED HEMOGLOBIN, TOTAL Routine 01/10/2025 11:02 AM EST Generalized anxiety disorder with panic attacks LIPID PANEL, STANDARD Routine 09/19/2022 8:08 AM EST from Last 3 Months or Most Recently Relevant to Health Maintenance Results * (ABNORMAL) Urinalysis, Complete, with Reflex to Culture (05/04/2025 11:33 PM EDT) Color Urine Yellow [facility] Appearance Urine Clear [facility] PH 5.5 5.0 - 9.0 [facility] Glucose Urine UA Negative Negative mg/dL [facility] Urine Blood Negative Negative [facility] Specific [place] - Urine 1.015 1.005 - 1.025 [facility] Urine Protein Negative Neg-Trace mg/dL [facility] Urine Ketones Negative Negative mg/dL [facility] Nitrite Urine Negative Negative [facility] Leukocyte Esterase Urine Moderate (2+)(A) Negative [facility] RBC Urine 0-2 0 - 2 /HPF [facility] Urine WBC 21-50(A) 0 - 5 /HPF [facility] Urine Squamous Epithelial Cell 0-2 0 - 2 /HPF [facility] Urine Bacteria None Seen None Seen [facility] Hyaline Casts, Urine 0-2 0 - 2 /LPF [facility] 05/04/2025 11:3 3 PM EDT 05/04/2025 11:36 PM EDT Narrative [facility] - 05/04/2025 11:41 PM EDT Urine, Clean Catch us Generic External Data Provider LAB URINE ORDERAB LES Final Result [facility] [address] [place] [address] [phone] * Drug Monitoring, Panel 1, Screen, Urine (05/04/2025 11:33 PM EDT) Opiate Screen Urine Not Detected Not Detect [facility] Comment:Opiate cut-off is 30 0 ng/mL.Positive results are unconfirmed and should not be used fornon-medical purposes. Barbiturates, Urine Not Detected Not Detect [facility] Comment:Barbiturate cut-off is 200 ng/mL.Positive results are unconfirmed and should not be used fornon-medical purposes. Phencyclidine Screen Urine Not Detected Not Detect [facility] Comment:Phencyclidine cut-of f is 25 ng/mL.Positive results are unconfirmed and should not be used fornon-medical purposes. Amphetamine Screen Urine Not Detected Not Detect [facility] Comment:Amphetamine cut-off is 1000 ng/mL.Positive results are unconfirmed and should not be used fornon-medical purposes. Benzodiazepines Screen Urine Not Detected Not Detect [facility] Comment:Benzodiazepine cut-o ff is 200 ng/mL.Positive results are unconfirmed and should not be used fornon-medical purposes. Cocaine Screen Urine Not Detected Not Detect [facility] Comment:Cocaine cut-off is 3 00 ng/mL.Positive results are unconfirmed and should not be used fornon-medical purposes. Cannabinoid Screen Urine Not Detected Not Detect [facility] Comment:Cannabinoid cut-off is 50 ng/mL.Positive results are unconfirmed and should not be used fornon-medical purposes. Methadone Screen, Urine Not Detected Not Detect ng/mL [facility] Comment:Methadone cut-off is 300 ng/mL.Positive results are unconfirmed and should not be used fornon-medical purposes. FENTANYL URINE Not Detected Not Detect [facility] Comment:Fentanyl cut-off is 1 ng/mL.Positive results are unconfirmed and should not be used fornon-medical purposes. Oxycodone Urine Screen Not Detected Not Detect ng/mL [facility] Comment:Oxycodone cut-off is 100 ng/mL.Positive results are unconfirmed and should not be used fornon-medical purposes. Buprenorphine Screen Not Detected Not Detect ng/mL [facility] Comment:Buprenorphine cut-of f is 5 ng/mL.Positive results are unconfirmed and should not be used fornon-medical purposes. 05/04/2025 11:3 3 PM EDT 05/04/2025 11:36 PM EDT Generic External Data Provider LAB URINE ORDERAB LES Final Result Performing Organization Address City/State/[facility] Co de Phone Number [facility] [address] [place] [phone] * CT Sinus Facial Bones w/o Contrast (05/04/2025 11:25 PM EDT) Anatomical Region Laterality Modality Computed Tomogra phy 05/04/2025 11:2 5 PM EDT Narrative 05/04/2025 11:27 PM EDT [address] [address] [address] Scan Report Signed Patient: Noreen Wing MR#: [id number] : 1945 Acct:[id number] Age/Sex: 79 / F ADM Date: 05/04/25 Loc: HO.ED Attending Dr: Ordering Physician: Marta Briscoe MD Date of Service: 05/04/25 Procedure(s): CT facial bones wo IV con Accession Number(s): [id number] cc: Nitin Echevarria MD; Marta Briscoe MD Report Number: [id number]: Total DLP = 1435.00 mGy-cm CLINICAL HISTORY: r o blow out fx L side CT maxillofacial without contrast Comparison: CT/REG/SR - CT FACIAL BONES WO IV CON - 11/29/23 09:16 EST Findings: Chronic appearing left nasal bone fracture. No significant soft tissue edema. No acute maxillofacial fracture. Temporomandibular joints are intact. Mucosal thickening throughout the paranasal sinuses. Left periorbital soft tissue hematomas. Visualized intracranial contents are within normal limits. No foreign bodies. Bilateral lens extraction. IMPRESSION: 1. Left periorbital soft tissue hematomas. 2. No acute maxillofacial fracture. This document has been electronically signed by: Jonathon Cortés MD on 05/04/2025 23:25:50 Dictated By: Jonathon Cortés MD Signed By: <Electronically signed by Jonathon Cortés MD in OV> 05/04/252326 DD/ 24 TD/TT: 05/04/252324 Leather Staker: Procedure Note Donotuseinterpreter, Image - 05/04/[address] [place] [address] [address] Scan Report Signed Patient: Noreen Wing#: [id number] : 3Acct:[id number] Age/Sex: 79 / FADM Date: 05/04/25 Loc: .ED Attending Dr: Ordering Physician: Marta Briscoe MD Date of Service: 05/04/25 Procedure(s): CT facial bones wo IV con Accession Number(s): [id number] cc: Nitin Echevarria MD; Marta Briscoe MD Report Number: [id number]: Total DLP = 1435.00 mGy-cm CLINICAL HISTORY: r o blow out fx L side CT maxillofacial without contrast Comparison: CT/REG/SR - CT FACIAL BONES WO IV CON - 11/29/23 09:16 EST Findings: Chronic appearing left nasal bone fracture. No significant soft tissue edema. No acute maxillofacial fracture. Temporomandibular joints are intact. Mucosal thickening throughout the paranasal sinuses. Left periorbital soft tissue hematomas. Visualized intracranial contents are within normal limits. No foreign bodies. Bilateral lens extraction. IMPRESSION: 1. Left periorbital soft tissue hematomas. 2. No acute maxillofacial fracture. This document has been electronically signed by: Jonathon Cortés MD on 05/04/2025 23:25:50 Dictated By: Jonathon Cortés MD Signed By: <Electronically signed by Jonathon Cortés MD in OV> 05/04/252326 DD/ 24 TD/TT: 05/04/252324 Leather Staker: [facility] External Provider IMG CT PROCEDURES Final Result * CT Head w/o Contrast (05/04/2025 11:24 PM EDT) Anatomical Region Laterality Modality Head, Neck Computed Tomogra phy 05/04/2025 11:2 4 PM EDT Narrative 05/04/2025 11:25 PM EDT [place] [address] CT Scan Report Signed Patient: Noreen Wing MR#: [id number] : 1945 Acct:[id number] Age/Sex: 79 / F ADM Date: 05/04/25 Loc: HO.ED Attending Dr: Ordering Physician: Marta Briscoe MD Date of Service: 05/04/25 Procedure(s): CT head/brain wo IV con Accession Number(s): [id number] cc: Name,Nitin PIKE; Marta Briscoe MD Report Number: [id number]: Total DLP = 1435.00 mGy-cm CLINICAL HISTORY: FALL CT head without contrast Comparison: CT/SR - CT HEAD/BRAIN WO IV CON - 11/14/24 20:27 EST Findings: Scattered subcortical and periventricular hypoattenuation, likely in keeping with chronic small vessel ischemic disease. Parenchymal volume loss with compensatory prominence of the ventricles and CSF spaces. No acute territorial infarction, intracranial hemorrhage, midline shift or hydrocephalus. Empty sella is demonstrated, nonspecific. Trace right mastoid effusion. Left periorbital soft tissue hematomas. Nonspecific scattered lucencies throughout the calvarium for example series 17, image 31 and 32. Opacification in the left ethmoidal air cells. No air-fluid levels. Bilateral lens extraction. IMPRESSION: 1. No acute intracranial abnormality. 2. Additional findings as described. This document has been electronically signed by: Jonathon Cortés MD on 05/04/2025 23:24:32 Dictated By: Jonathon Cortés MD Signed By: <Electronically signed by Jonathon Cortés MD in OV> 05/04/252324 DD/ 23 TD/TT: 05/04/252323 Leather Staker: Procedure Note Donotuseinterpreter, Image - 05/04/[address] [place] [address] [address] Scan Report Signed Patient: Jennifer Wing#: [id number] : 1945cct:[id number] Age/Sex: 79 / FADM Date: 05/04/25 Loc: HO.ED Attending Dr: Ordering Physician: Marta Briscoe MD Date of Service: 05/04/25 Procedure(s): CT head/brain wo IV con Accession Number(s): [id number] cc: Name,Nitin PIKE; Marta Briscoe MD Report Number: [id number]: Total DLP = 1435.00 mGy-cm CLINICAL HISTORY: FALL CT head without contrast Comparison: CT/SR - CT HEAD/BRAIN WO IV CON - 11/14/24 20:27 EST Findings: Scattered subcortical and periventricular hypoattenuation, likely in keeping with chronic small vessel ischemic disease. Parenchymal volume loss with compensatory prominence of the ventricles and CSF spaces. No acute territorial infarction, intracranial hemorrhage, midline shift or hydrocephalus. Empty sella is demonstrated, nonspecific. Trace right mastoid effusion. Left periorbital soft tissue hematomas. Nonspecific scattered lucencies throughout the calvarium for example series 17, image 31 and 32. Opacification in the left ethmoidal air cells. No air-fluid levels. Bilateral lens extraction. IMPRESSION: 1. No acute intracranial abnormality. 2. Additional findings as described. This document has been electronically signed by: Jonathon Cortés MD on 05/04/2025 23:24:32 Dictated By: Jonathon Cortés MD Signed By: <Electronically signed by Jonathon Cortés MD in OV> 05/04/252324 DD/ 23 TD/TT: 05/04/252323 Leather Staker: [facility] External Provider IMG CT PROCEDURES Final Result * CT Cervical Spine w/o Contrast (05/04/2025 11:21 PM EDT) Anatomical Region Laterality Modality Spine, C-spine Computed Tomogra phy 05/04/2025 11:2 1 PM EDT Narrative 05/04/2025 11:23 PM EDT [place] [address] CT Scan Report Signed Patient: Noreen Wing MR#: [id number] : 1945 Acct:[id number] Age/Sex: 79 / F ADM Date: 05/04/25 Loc: HO.ED Attending Dr: Ordering Physician: Marta Briscoe MD Date of Service: 05/04/25 Procedure(s): CT cervical spine wo IV con Accession Number(s): [id number] cc: Name,Nitin PIKE; Marta Briscoe MD Report Number: [id number]: Total DLP = 1434.00 mGy-cm CLINICAL HISTORY: fall, mild neck pain CT cervical spine without contrast Comparison: CT/SR - CT CERVICAL SPINE WO IV CON - 10/12/24 08:47 EST Findings: Reversal of the cervical lordosis. Osteopenia. Multilevel spondylosis with osteophytosis, uncovertebral hypertrophy, facet arthropathy and degenerative disc disease. 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 Anterolisthesis at C4-C5. Similar widening of the right C3-C4 facet joint. Moderate spinal canal narrowing C5-C6 with severe bilateral foraminal stenoses, right worse than left. No acute fractures or dislocations. Trace bilateral mastoid effusions. No cervical fluid collections or masses. Calcified granuloma right upper lobe. Diffuse esophageal mural thickening, nonspecific. IMPRESSION: No acute findings. Additional findings as described. This document has been electronically signed by: Jonathon Cortés MD on 05/04/2025 23:21:22 Dictated By: Jonathon Cortés MD Signed By: <Electronically signed by Jonathon Cortés MD in OV> 05/04/252321 DD/ 20 TD/TT: 05/04/252320 Leather Staker: Procedure Note Donotuseinterpreter, Image - 05/04/[address] [place] [address] [address] Scan Report Signed Patient: Jennifer Wing#: [id number] : 3Acct:[id number] Age/Sex: 79 / FADM Date: 05/04/25 Loc: HO.ED Attending Dr: Ordering Physician: Marta Briscoe MD Date of Service: 05/04/25 Procedure(s): CT cervical spine wo IV con Accession Number(s): [id number] cc: Name,Nitin PIKE; Marta Briscoe MD Report Number: [id number]: Total DLP = 1434.00 mGy-cm CLINICAL HISTORY: fall, mild neck pain CT cervical spine without contrast Comparison: CT/SR - CT CERVICAL SPINE WO IV CON - 10/12/24 08:47 EST Findings: Reversal of the cervical lordosis. Osteopenia. Multilevel spondylosis with osteophytosis, uncovertebral hypertrophy, facet arthropathy and degenerative disc disease. 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 Anterolisthesis at C4-C5. Similar widening of the right C3-C4 facet joint. Moderate spinal canal narrowing C5-C6 with severe bilateral foraminal stenoses, right worse than left. No acute fractures or dislocations. Trace bilateral mastoid effusions. No cervical fluid collections or masses. Calcified granuloma right upper lobe. Diffuse esophageal mural thickening, nonspecific. IMPRESSION: No acute findings. Additional findings as described. This document has been electronically signed by: Jonathon Cortés MD on 05/04/2025 23:21:22 Dictated By: Jonathon Cortés MD Signed By: <Electronically signed by Jonathon Cortés MD in OV> 05/04/252321 DD/ 20 TD/TT: 05/04/252320 Leather Staker: [facility] External Provider IMG CT PROCEDURES Final Result * Culture, Urine, Routine (05/04/2025 12:00 AM EDT) Urine Urine specimen obtained by clean catch procedure / Unknown 05/04/2025 05/04/2025 Comment:UACC Narrative [facility] - 05/06/2025 1:19 PM EDT Strep agalactiae (Grp B) Quant 10,000 to 50,000 cfu/mL Susc N/A Susceptibility not routinely performed on this isolate. Specimen Source: Urine clean catch Generic External Data Provider LAB MICROBIOLOGY - GENERAL ORDERABLES Final Result Performing Organization Address City/State/[facility] Co de Phone Number [facility] [address] [place] [phone] * POCT HGB A1C (01/10/2025 11:02 AM [...] [facility] Comment: Reference range: <100 Desirable range <100 mg/dL for primary prevention; <70 mg/dL for patients with CHD or diabetic patients with > or = 2 CHD risk factors. LDL-C is now calculated using the López calculation, which is a validated novel method providing better accuracy than the Friedewald equation in the estimation of LDL-C. Jack RAYO et al. JITENDRA. 2013;310(19): 4783-9478 (http://education.Click Security/faq/HMC902) Non-HDL Cholesterol 88 <130 mg/dL (calc) CONVERTED LEGACY LABS Comment: For patients with diabetes plus 1 major ASCVD risk factor, treating to a non-HDL-C goal of <100 mg/dL (LDL-C of <70 mg/dL) is considered a therapeutic option. Triglycerides 143 <150 mg/dL CONVE RTED LEGACY LABS 09/19/2022 8:08 AM EST us Karely Patiño MD LAB BLOOD ORDERABLES Final Resul t CONVERTED LEGACY LABS from Last 3 Months or Most Recently Relevant to Health Maintenance Insurance [id number] LONG-TERM OPTIONS (O D-SNP) [place] [id number] Care Teams Pie Topper Relationship Specialty Start Date End Date Name, MD Nitin [address] [place] [address] PCP - General Family Medicine 08/26/17 [facility] 09/01/24
--- OUTSIDE RECORDS SUMMARY | 2025-07-18 06:24 | XMS_ITS | Encounter Summary ---
Author Organization [employer] Address [address] [facility] [address] [place] [address] Care Team Providers Care Hospitalist Medical Director Name Role Phone Name, Nitin PIKE Primary Care Provider Reason for Visit * Reason Comments Med Refill Encounter Details Date Type Department Care Team ([facility] st Contact Info) Description 04/01/2024 Refill [facility] [address] [place], [place] [phone] Name, MD Nitin [address] [place] [address] Rash Social History Tobacco Use Types Packs/Day [...] Description 08/09/2025 11:15 AM EDT Office Visit [facility] [address] [place] [address] Name, MD Nitin [address] [place] [address] documented as of this encounter Visit Diagnoses Diagnosis Rash Rash and other nonspecific skin eruption documented in this encounter Additional Health Concerns Assessment Noted Time PHQ-9 Depression Total Score: 6 02/13/20 24 9:14 AM EDT documented as of this encounter Care Teams Hospitalist Medical Director Relationship Specialty Start Date End Date NameNitin MD [address] [place] [address] PCP - General Family Medicine 08/26/17 [facility] 09/01/24 documented as of this encounter
--- OUTSIDE RECORDS SUMMARY | 2025-07-18 06:24 | XMS_ITS | Encounter Summary ---
Author Organization [employer] Address [address] [facility] 7[address] [place] [address] Care Team Providers Care Welder Assistant Name Role Phone Name, Nitin PIKE Primary Care Provider [phone] Reason for Visit * Reason Onset Date Comments Durable Medical Equipment 12/09/2023 Encounter Details Date Type Department Care Team ([facility] st Contact Info) Description 12/09/[address] [facility] [address] [place], [place] [phone] Name, MD Nitin [address] [place], [place] [phone] Durable Medical Equipment Social History Tobacco Use [...] 10:11 AM EST DME rx faxed to [facility] as requested. RN will consult with S nurse and provide referral. * Telephone Encounter - Fozia Jacob RN - 12/09/2023 4:58 PM EST Call returned to [facility] at [facility] [phone] ext. [phone]. [facility] states that [facility] attempted to provide PT at home but pt refused. [facility] pt is requesting outpatient PT. [facility] pt is seeing a counselor more regularly and has agreed to VNA referral. Reports pt has had 3 falls in the past 2 months. [facility] states [facility] no longer has visiting nurses. [facility] recommends [facility] or [facility] for VNA referral. [facility] also requesting DME rx for rollator walker and a straight cane. Requests that DME rx be faxed to [phone]. Advised requests will be sent to pcp. * Telephone Encounter - Adithya Solorzano - 12/09/2023 4:25 PM EST Tc from [facility] requesting DME: Rollator walker . documented in this encounter Plan of Treatment Upcoming Encounters Date Type Department Care Team (Late st Contact Info) Description 08/09/2025 11:15 AM EDT Office Visit [facility] MED[facility] [address] [place] [address] Name, MD Nitin [address] [place] [address] documented as of this encounter Visit Diagnoses Not on filedocumented in this encounter Additional Health Concerns Assessment Noted Time PHQ-9 Depression Total Score: 12 023 9:37 AM EDT documented as of this encounter Care Teams Welder Assistant Relationship Specialty Start Date End Date Name, [place] [address] PCP - General Family Medicine 08/26/17 [facility] 09/01/24 documented as of this encounter
--- OUTSIDE RECORDS SUMMARY | 2025-07-18 06:24 | XMS_ITS | Encounter Summary ---
Author Organization [employer] Address [address] [facility] [place] [address] [place] [address] Care Team Providers Care Or Nurse Manager Name Role Phone Name, Nitin PIKE Primary Care Provider Encounter Details Date Type Department Care Team (Late st Contact Info) Description 11/06/2022 Orders Only [facility] CHC MED & PEDS [address] [place], [place] [phone] Lisha Kelly LPN Social History Tobacco Use [...] Description 08/09/2025 11:15 AM EDT Office Visit [facility] MEDICINE [address] [place] [address] NameNitin MD [address] [place] [address] documented as of this encounter Visit Diagnoses Not on filedocumented in this encounter Care Teams Or Nurse Manager Relationship Specialty Start Date End Date Nitin Echevarria MD [address] [place] [address] PCP - General Family Medicine 08/26/17 [facility] 09/01/24 documented as of this encounter
--- OUTSIDE RECORDS SUMMARY | 2025-07-18 06:24 | XMS_ITS | Encounter Summary ---
Author Organization [employer] Address 75 [facility] 7[address] [place] [address] Care Team Providers Care Automotive Porter Name Role Phone Name, Nitin PIKE Primary Care Provider [phone] Reason for Visit * Reason Comments Med Refill Encounter Details Date Type Department Care Team (Late st Contact Info) Description 01/09/2025 Refill [facility] 230 [place], [place] [phone] Name, MD Nitin [address] [place] [address] Hypertension, unspecified type Social History Tobacco Use [...] Description 08/09/2025 11:15 AM EDT Office Visit [facility] [address] [place] [address] NameNitin MD [address] [place] [address] documented as of this encounter Visit Diagnoses Diagnosis Hypertension, unspecified type documented in this encounter Additional Health Concerns Assessment Noted Time PHQ-9 Depression Total Score: 6 02/13/20 9:14 AM EDT documented as of this encounter Care Teams Automotive Porter Relationship Specialty Start Date End Date NameNitin MD [address] [place] [address] PCP - General Family Medicine 08/26/17 [facility] 09/01/24 documented as of this encounter
--- OUTSIDE RECORDS SUMMARY | 2025-07-18 06:24 | XMS_ITS | Clinical Summary ---
Author Organization [facility] Address [address] [place] [address] Phone Care Team Providers Care Blood Bank Worker Name Role Phone Physician, No Pcp Primary [...] mmol/L LAB CHEMISTRY METHOD 09/22/2024 3:15 AM [facility] Potassium 4.6 3.5 - 5.5 mmol/L LAB CHEMISTRY METHOD 09/22/2024 3:15 AM [facility] Chloride 98 96 - 110 mmol/L LAB CHEMISTRY METHOD 09/22/2024 3:15 AM [facility] CO2 28 21 - 32 mmol/L LAB CHEMISTRY METHOD 09/22/2024 3:15 AM [facility] Anion Gap 6 3 - 11 LAB CHEMISTRY METHOD 09/22/2024 3:15 AM [facility] Glucose 119(H) 70 - 100 mg/dL LAB CHEMISTRY METHOD 09/22/2024 3:15 AM [facility] BUN 25 5 - 25 mg/dL LAB CHEMISTRY METHOD 09/22/2024 3:15 AM [facility] Creatinine 1.18(H) 0.50 - 1.10 mg/dL LAB CHEMISTRY METHOD 09/22/2024 3:15 AM [facility] eGFR 47(L) >=60 mL/min/1. 73m2 LAB CHEMISTRY METHOD 09/22/2024 3:15 AM [facility] Comment:Calculation based on the Chronic Kidney Disease Epidemiology Collaboration (CKD-EPI) equation refit without adjustment for race. BUN/Creatinine Ratio 21.2 LAB CHEMISTRY METHOD 09/22/2024 3:15 AM [facility] Calcium 9.3 8.5 - 10.5 mg/dL LAB CHEMISTRY METHOD 09/22/2024 3:15 AM [facility] AST (SGOT) 37 10 - 42 unit/L LAB CHEMISTRY METHOD 09/22/2024 3:15 AM [facility] ALT (SGPT) 25 10 - 60 unit/L LAB CHEMISTRY METHOD 09/22/2024 3:15 AM [facility] Alkaline Phosphatase 77 42 - 121 unit/L LAB CHEMISTRY METHOD 09/22/2024 3:15 AM [facility] Total Protein 8.0 6.0 - 8.0 g/dL LAB CHEMISTRY METHOD 09/22/2024 3:15 AM EST [facility] Albumin 4.2 3.2 - 5.0 g/dL LAB CHEMISTRY METHOD 09/22/2024 3:15 AM EST [facility] Total Bilirubin 0.4 0.0 - 1.4 mg/dL LAB CHEMISTRY METHOD 09/22/2024 3:15 AM EST [facility] Blood Venous blood specimen / Unknown Venipuncture / Unknown 09/22/2024 2:28 AM EST 09/22/2024 2:31 AM EST Paul RUIZ LAB BLOOD ORDERABLES Final Resul t [facility] [address] [place] [address], from Last 3 Months or Most Recently Relevant to Health Maintenance Insurance [facility] MEDICARE Member Subscriber Plan / Payer (Ef fective 2021-Present) Name:Noreen Wing Relation to Subscriber:Self Name:Noreen Wing Payer ID:[id number] Group ID:[id number] Type:Not on file Address: [address] [place] [address] Care Teams Blood Bank Worker Relationship Specialty Start Date End Date Physician, No Pcp PCP - General 09/22/24
--- OUTSIDE RECORDS SUMMARY | 2025-07-18 06:24 | XMS_ITS | Encounter Summary ---
Author Organization [employer] Address [address] [facility] 7[address] [place] [address] Care Team Providers Care Music Leader Name Role Phone Name, Nitin PIKE Primary Care Provider [phone] Reason for Visit * Reason Comments Med Refill Encounter Details Date Type Department Care Team (Late st Contact Info) Description 04/20/2025 Refill [facility] [address] [place] [address] Zechariah Cheung MD [address] [place] [address] Allergic rhinitis, unspecified seasonality, unspecified trigger Social History Tobacco Use Types Packs/Day Years [...] 08/09/2025 11:15 AM EDT Office Visit [facility] [address] [place] [address] NameNitin MD [address] [place] [address] documented as of this encounter Visit Diagnoses Diagnosis Allergic rhinitis, unspecified seasonality, unspecified trigger documented in this encounter Additional Health Concerns Assessment Noted Time PHQ-9 Depression Total Score: 6 02/13/20 24 9:14 AM EDT documented as of this encounter Care Teams Music Leader Relationship Specialty Start Date End Date Nitin Echevarria MD [address] [place] [address] PCP - General Family Medicine 08/26/17 [facility] 09/01/24 documented as of this encounter
--- OUTSIDE RECORDS SUMMARY | 2025-07-18 06:24 | XMS_ITS | Encounter Summary ---
Author Organization [employer] Address [address] [facility] 7[address] [place] [address] Care Team Providers Care Project Management Director Name Role Phone Name, Nitin PIKE Primary Care Provider [phone] Reason for Visit * Reason Onset Date Comments Order(s) 12/09/2023 Encounter Details Date Type Department Care Team ([facility] Contact Info) Description 12/09/2023 Telephone [facility] [address] [place], [place] [phone] Name, MD Nitin [address] [place], [place] [phone] Order(s) Social History Tobacco Use Types Packs/Day [...] orders. If any questions please contact Noreen [phone]. documented in this encounter Plan of Treatment Upcoming Encounters Date Type Department Care Team (Late st Contact Info) Description 08/09/2025 11:15 AM EDT Office Visit [facility] [address] [place] [address] Name, MD Nitin [address] [place] [address] documented as of this encounter Visit Diagnoses Not on filedocumented in this encounter Additional Health Concerns Assessment Noted Time PHQ-9 Depression Total Score: 12 023 9:37 AM EDT documented as of this encounter Care Teams Project Management Director Relationship Specialty Start Date End Date Name, MD Nitin [address] [place] [address] PCP - General Family Medicine 08/26/17 [facility] 09/01/24 documented as of this encounter
--- OUTSIDE RECORDS SUMMARY | 2025-07-18 06:24 | XMS_ITS | Encounter Summary ---
Author Organization [employer] Address 75 [facility] 7[address] [place] [address] Care Team Providers Care Continuous Improvement Consultant Name Role Phone Name, Nitin PIKE Primary Care Provider [phone] Reason for Visit * Reason Onset Date Comments Call Back Request 03/14/2025 Encounter Details Date Type Department Care Team ([facility] st Contact Info) Description 03/14/2025 Telephone [facility] MED[facility]INE [address] [place], [place] [phone] Name, MD Nitin [address] [place] [address] Call Back Request Social History Tobacco Use [...] Description 08/09/2025 11:15 AM EDT Office Visit [facility] MEDICINE [address] [place] [address] Name, MD Nitin [address] [place] [address] documented as of this encounter Visit Diagnoses Not on filedocumented in this encounter Additional Health Concerns Assessment Noted Time PHQ-9 Depression Total Score: 6 02/13/20 24 9:14 AM EDT documented as of this encounter Care Teams Continuous Improvement Consultant Relationship Specialty Start Date End Date Name, MD Nitin [address] [place] [address] PCP - General Family Medicine 08/26/17 [facility] 09/01/24 documented as of this encounter
--- OUTSIDE RECORDS SUMMARY | 2025-07-18 06:24 | XMS_ITS | Encounter Summary ---
Author Organization [employer] Address [address] [facility] 7[address] [place] [address] Care Team Providers Care Anodizer Name Role Phone Name, Nitin PIKE Primary Care Provider [phone] Reason for Visit * Reason Comments Med Refill Encounter Details Date Type Department Care Team (Late st Contact Info) Description 08/16/2024 Refill [facility] CH[facility] MED & PEDS [address] [place], [place] [phone] Name, MD Nitin [address] [place] [address] Heartburn Social History Tobacco Use Types Packs/Day [...] Description 08/09/2025 11:15 AM EDT Office Visit [facility] MEDICINE [address] [place] [address] NameNitin MD [address] [place] [address] documented as of this encounter Visit Diagnoses Diagnosis Heartburn documented in this encounter Additional Health Concerns Assessment Noted Time PHQ-9 Depression Total Score: 6 02/13/20 24 9:14 AM EDT documented as of this encounter Care Teams Anodizer Relationship Specialty Start Date End Date NameNitin MD [address] [place] [address] PCP - General Family Medicine 08/26/17 [facility] 09/01/24 documented as of this encounter
--- OUTSIDE RECORDS SUMMARY | 2025-07-18 06:24 | XMS_ITS | Encounter Summary ---
Author Organization [employer] Address [address] [facility] 7[address] [place] [address] Care Team Providers Care Power Shovel Operator Name Role Phone Name, Nitin PIKE Primary Care Provider [phone] Reason for Visit * Reason Comments Med Refill Encounter Details Date Type Department Care Team (Late st Contact Info) Description 07/17/2025 Refill [facility] MED[facility] [address] [place], [place] [phone] Name, MD Nitin [address] [place], [place] [phone] Hypertension, unspecified type Social History Tobacco Use [...] Description 08/09/2025 11:15 AM EDT Office Visit [facility] [address] [place] [address] NameNitin MD [address] [place] [address] documented as of this encounter Visit Diagnoses Diagnosis Hypertension, unspecified type documented in this encounter Additional Health Concerns Assessment Noted Time PHQ-9 Depression Total Score: 3 04/29/20 25 9:41 AM EDT documented as of this encounter Care Teams Power Shovel Operator Relationship Specialty Start Date End Date NameNitin MD [address] [place] [address] PCP - General Family Medicine 08/26/17 [facility] 09/01/24 documented as of this encounter
--- OUTSIDE RECORDS SUMMARY | 2025-07-18 06:24 | XMS_ITS | Encounter Summary ---
Author Organization [employer] Address 75 [facility] 7[address] [place] [address] Care Team Providers Care Teacher Theater Arts Name Role Phone Name, Nitin PIKE Primary Care Provider [phone] Reason for Visit * Reason Onset Date Comments Hospital Follow-up 10/20/2024 Encounter Details Date Type Department Care Team ([facility] Contact Info) Description 10/20/2024 Telephone [facility] 230 [place], [place] [phone] Name, MD Nitin [address] [place] [address] Hospital Follow-up Social History Tobacco Use Types [...] from pt requesting a HDF appt. [facility] [facility] Date of admission: 10/17 Discharge date: 10/19 Diagnosed: High Blood Pressure and Fever Contact pt at [phone] *Send message to [facility] Clinical Care Coordinators documented in this encounter Plan of Treatment Upcoming Encounters Date Type Department Care Team (Late st Contact Info) Description 08/09/2025 11:15 AM EDT Office Visit [facility] [address] [place] [address] Name, MD Nitin [address] [place] [address] documented as of this encounter Visit Diagnoses Not on filedocumented in this encounter Additional Health Concerns Assessment Noted Time PHQ-9 Depression Total Score: 6 02/13/20 24 9:14 AM EDT documented as of this encounter Care Teams Teacher Theater Arts Relationship Specialty Start Date End Date Name, MD Nitin [address] [place] [address] PCP - General Family Medicine 08/26/17 [facility] 09/01/24 documented as of this encounter
--- OUTSIDE RECORDS SUMMARY | 2025-07-18 06:24 | XMS_ITS | Encounter Summary ---
Author Organization [employer] Address [address] [facility] 7[address] [place] [address] Care Team Providers Care Prehemmer Name Role Phone Name, Nitin PIKE Primary Care Provider [phone] Reason for Visit * Reason Onset Date Comments ER Follow-up 05/04/2024 Encounter Details Date Type Department Care Team ([facility] [place] [facility] Contact Info) Description 05/04/[address] [facility] MEDICINE [address] [place], [place] [phone] Name, MD Nitin [address] [place] [address] ER Follow-up Social History Tobacco Use Types [...] 11:01 AM EDT T/C to pt. Through [facility] [place] - [id number] for below message, No answer. LVM to call back [phone] . * Telephone Encounter - Adithya Solorzano - 05/04/2024 9:35 AM EDT Noreen with [facility] calling to report ED visit on : Date: 04/28 Hospital: [facility] Seen for: UTI, Nausea, Rash. Noreen advised will be forwarding message to team nurses. Please contact pt at [phone]. documented in this encounter Plan of Treatment Upcoming Encounters Date Type Department Care Team (Late st Contact Info) Description 08/09/2025 11:15 AM EDT Office Visit [facility] MEDICINE [address] [place] [address] Name, MD Nitin [address] [place] [address] documented as of this encounter Visit Diagnoses Not on filedocumented in this encounter Additional Health Concerns Assessment Noted Time PHQ-9 Depression Total Score: 6 02/13/20 24 9:14 AM EDT documented as of this encounter Care Teams Prehemmer Relationship Specialty Start Date End Date Name, MD Nitin [address] [place] [address] PCP - General Family Medicine 08/26/17 [facility] 09/01/24 documented as of this encounter
--- OUTSIDE RECORDS SUMMARY | 2025-07-18 06:24 | XMS_ITS | Encounter Summary ---
Author Organization [employer] Address [address] [facility] [address] [place] [address] Care Team Providers Care Terminologist Name Role Phone Name, Nitin PIKE Primary Care Provider [phone] Reason for Visit * Reason Onset Date Comments FYI 01/21/2024 ER Follow-up 01/21/2024 Encounter Details Date Type Department Care Team ([facility] st Contact Info) Description 01/21/2024 Telephone [facility] MEDICINE [address] [place], [place] [phone] Name, MD Nitin [address] [place] [address] FYI; ER Follow-up Social History Tobacco Use [...] - 01/21/2024 1:54 PM EDT Message from [facility] noted. [facility] note sent to medical records. PCP does not rx Trazodone. Pt to f/u with psych prescriber. Pt is scheduled for f/u with pcp 02/13/24. * Telephone Encounter - Janette Huitron - 01/21/2024 9:45 AM EDT Tc from [facility] with [facility] ED calling in regards to pt. States pt was seen today for anxiety and is requesting trazodone. Will discharge pt with no medication change. Would also like to advise provider, pt was seen at [facility] on 01/17 for anxiety/insomnia as well documented in this encounter Plan of Treatment Upcoming Encounters Date Type Department Care Team (Late st Contact Info) Description 08/09/2025 11:15 AM EDT Office Visit [facility] MEDICINE [address] [place] [address] Name, MD Nitin [address] [place] [address] documented as of this encounter Visit Diagnoses Not on filedocumented in this encounter Additional Health Concerns Assessment Noted Time PHQ-9 Depression Total Score: 12 023 9:37 AM EDT documented as of this encounter Care Teams Terminologist Relationship Specialty Start Date End Date Name, MD Nitin [address] [place] [address] PCP - General Family Medicine 08/26/17 [facility] 09/01/24 documented as of this encounter
--- OUTSIDE RECORDS SUMMARY | 2025-07-18 06:24 | XMS_ITS | Encounter Summary ---
Author Organization [employer] Address 75 [facility] 7[address] [place] [address] Care Team Providers Care Bus Driver/Monitor Name Role Phone Name, Nitin PIKE Primary Care Provider [phone] Reason for Visit * Reason Onset Date Comments Verbal Orders 12/15/2023 Encounter Details Date Type Department Care Team ([facility] st Contact Info) Description 12/15/2023 Telephone [facility] MEDICINE [address] [place], [place] [phone] Name, MD Nitin [address] [place] [address] Verbal Orders Social History Tobacco Use Types [...] 12:03 PM EST Tc from Josseline with [facility] requesting verbal order to see pt 2 times a week for 4 weeks for Occupational Therapy, please contact Josseline at [phone] documented in this encounter Plan of Treatment Upcoming Encounters Date Type Department Care Team (Late st Contact Info) Description 08/09/2025 11:15 AM EDT Office Visit [facility] MEDICINE [address] [place] [address] Name, MD Nitin [address] [place] [address] documented as of this encounter Visit Diagnoses Not on filedocumented in this encounter Additional Health Concerns Assessment Noted Time PHQ-9 Depression Total Score: 12 023 9:37 AM EDT documented as of this encounter Care Teams Bus Driver/Monitor Relationship Specialty Start Date End Date NameNitin MD [address] [place] [address] PCP - General Family Medicine 08/26/17 [facility] 09/01/24 documented as of this encounter
--- OUTSIDE RECORDS SUMMARY | 2025-07-18 06:24 | XMS_ITS | Encounter Summary ---
Author Organization [employer] Address [address] [facility] [address] [place] [address] Care Team Providers Care Cena Name Role Phone Name, Nitin PIKE Primary Care Provider [phone] Reason for Visit * Reason Onset Date Comments Verbal Orders 01/02/2024 Encounter Details Date Type Department Care Team ([facility] st Contact Info) Description 01/02/2024 Telephone [facility] MEDICINE [address] [place], [place] [phone] Name, MD Nitin [address] [place] [address] Verbal Orders Social History Tobacco Use Types [...] No answer. LVM to call back on [phone]. * Telephone Encounter - Melany Santos RN - 01/06/2024 10:25 AM EST Please review and advise for below request. * Telephone Encounter - Deana Bazzi - 01/02/2024 3:44 PM EST Tc from [facility] with S requesting verbal orders for discharge pt from Occupational Therapy, due to pt refuses services, please contact [facility] at [phone]. documented in this encounter Plan of Treatment Upcoming Encounters Date Type Department Care Team (Late st Contact Info) Description 08/09/2025 11:15 AM EDT Office Visit [facility] MEDICINE [address] [place] [phone] Name, MD Nitin [address] [place] [address] documented as of this encounter Visit Diagnoses Not on filedocumented in this encounter Additional Health Concerns Assessment Noted Time PHQ-9 Depression Total Score: 12 023 9:37 AM EDT documented as of this encounter Care Teams Cena Relationship Specialty Start Date End Date Name, MD Nitin [address] [place] [phone] PCP - General Family Medicine 08/26/17 [facility] 09/01/24 documented as of this encounter
--- OUTSIDE RECORDS SUMMARY | 2025-07-18 06:24 | XMS_ITS | Encounter Summary ---
Author Organization [employer] Address [address] [facility] [address] [place] [address] Care Team Providers Care Crane Rigger Name Role Phone Name, Nitin PIKE Primary Care Provider Encounter Details Date Type Department Care Team ([facility] Contact Info) Description 08/08/2023 Telephone [facility] MEDICINE [address] [place] [address] [phone] Name, MD Nitin [address] [place] [address] [phone] Social History Tobacco Use Types Packs/Day Years [...] Department Care Team (Late Contact Info) Description 08/09/2025 11:15 AM EDT Office Visit [facility] MEDICINE [address] [place] [address] [phone] NameNitin MD [address] [place] [address] [phone] documented as of this encounter Visit Diagnoses Not on filedocumented in this encounter Additional Health Concerns Assessment Noted Time PHQ-9 Depression Total Score: 12 023 9:37 AM EDT documented as of this encounter Care Teams Crane Rigger Relationship Specialty Start Date End Date Name, MD Nitin [address] [place] [address] PCP - General Family Medicine 08/26/17 [facility] 09/01/24 documented as of this encounter
--- OUTSIDE RECORDS SUMMARY | 2025-07-18 06:24 | XMS_ITS | Clinical Summary ---
Author Organization [facility] Address [address] [address] Care Team Providers Care Head Refrigerating Engineer Name Role Phone Name, Nitin PIKE Primary Care Provider [phone] Allergies Active Allergy Reactions Criticality Noted Date [...] patient's age to complete this topic [place] [address] MCR ([id number]) SARA PHILLIPS [phone] [facility] MCR ([id number]) Care Teams Head Refrigerating Engineer Relationship Specialty Start Date End Date Name, MD Nitin [address] [place] [phone] PCP - General Internal Medicine 10/15/22
--- OUTSIDE RECORDS SUMMARY | 2025-07-18 06:24 | XMS_ITS | Encounter Summary ---
Author Organization [employer] Address [address] [facility] [address] [place] [address] Care Team Providers Care Power Equipment Mechanics Instructor Name Role Phone Name, Nitin PIKE Primary Care Provider [phone] Reason for Visit * Reason Onset Date Comments Med Refill 11/08/2024 Encounter Details Date Type Department Care Team ([facility] st Contact Info) Description 11/08/2024 Telephone [facility] MEDICINE [address] [place], [place] [phone] Name, MD Nitin [address] [place] [address] Med Refill Social History Tobacco Use Types [...] 5 MG tablet To be sent to: [facility] - [place], [place] - [address] [facility] documented in this encounter Plan of Treatment Upcoming Encounters Date Type Department Care Team ([facility] st Contact Info) Description 08/09/2025 11:15 AM EDT Office Visit [facility] MEDICINE [address] [place] [address] Name, MD Nitin [address] [place] [address] documented as of this encounter Visit Diagnoses Not on filedocumented in this encounter Additional Health Concerns Assessment Noted Time PHQ-9 Depression Total Score: 6 02/13/20 24 9:14 AM EDT documented as of this encounter Care Teams Power Equipment Mechanics Instructor Relationship Specialty Start Date End Date Name, MD Nitin [address] [place] [address] PCP - General Family Medicine 08/26/17 [facility] 09/01/24 documented as of this encounter
--- NOTE | 2025-07-18 06:33 | ECG_ITS ---
Test Reason : DIZZINESS Blood Pressure : */* mmHG Vent. Rate : 76 BPM Atrial Rate : 76 BPM P-R Int : 182 ms QRS Dur : 98 ms QT Int : 392 ms P-R-T Axes : 45 -26 7 degrees QTcB Int : 441 ms Sinus rhythm with marked sinus arrhythmia Moderate voltage criteria for LVH, may be normal variant ( R in aVL , [place] product ) Borderline ECG When compared with ECG of 17-Apr-2025 19:22, No significant change was found Referred By: Rafael Calderon Electronically Signed By: KATRINA PARSONS MD
--- NOTE | 2025-07-18 06:33 | ED.DIZZY ---
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 This has been happening to her in the past. No fevers or chills. She does have anxiety. Related Data Home Medications ?Medication ?Instructions ?Recorded ?Confirmed mirtazapine 45 mg tablet 45 mg PO BEDTIME 08/09/20 03/16/25 omeprazole 20 mg tablet,delayed 20 mg PO DAILY@0630 08/09/20 03/16/25 release aspirin 81 mg tablet,delayed 81 mg PO QAM 01/28/24 03/16/25 release bisacodyl 5 mg tablet,delayed 5 mg PO DAILY PRN constipation 01/28/24 03/16/25 release diphenhydramine HCl 25 mg tablet 25 mg PO BEDTIME PRN itch 01/28/24 03/16/25 (Lou-Dryl) ferrous sulfate 325 mg (65 mg 325 mg PO DAILY 01/28/24 03/16/25 iron) tablet (FeroSul) melatonin 10 mg tablet,extended 10 mg PO BEDTIME PRN Insomnia 01/28/24 03/16/25 release multivitamin 1 tab PO QAM 01/28/24 03/16/25 rosuvastatin 20 mg tablet 20 mg PO BEDTIME 01/28/24 03/16/25 trazodone 50 mg tablet 50 mg PO BEDTIME 01/28/24 03/16/25 amlodipine 10 mg tablet 10 mg PO DAILY 02/09/24 03/16/25 acetaminophen 500 mg tablet 500 mg PO Q8H PRN pain 08/09/24 03/16/25 ipratropium bromide 21 mcg (0.03 2 spray intranasal BID 08/09/24 03/16/25 %) nasal spray zolpidem 5 mg tablet 5 mg PO BEDTIME PRN Insomnia 08/09/24 03/16/25 cholecalciferol (vitamin D3) 25 25 mcg PO DAILY 10/11/24 05/07/25 mcg (1,000 unit) tablet meclizine 25 mg tablet 25 mg PO DAILY PRN 09/29/24 03/16/25 sertraline 100 mg tablet 100 mg PO DAILY 03/16/25 03/16/25 Previous Rx's ?Medication ?Instructions ?Recorded metoprolol succinate 50 mg 50 mg PO DAILY #90 tabs 09/28/20 tablet,extended release 24 hr fluticasone propionate 50 2 spray intranasal DAILY #16 grams 09/16/23 mcg/actuation nasal spray,suspension (Flonase Allergy Relief) ondansetron 4 mg disintegrating 4 mg PO Q6H PRN nausea and 04/28/24 tablet vomiting #10 tabs hydroxyzine HCl 25 mg tablet 25 mg PO TID PRN anxiety #6 tabs 08/07/24 clonazepam 0.5 mg tablet 0.5 mg PO TID #180 tabs 08/10/24 gabapentin 100 mg capsule 100 mg PO TID #180 caps 08/10/24 hydroxyzine HCl 25 mg tablet 25 mg PO TID PRN anxiety #20 tabs 09/09/24 miconazole nitrate 2 % vaginal 1 appful vaginal BEDTIME 7 days 10/09/24 cream (Monistat 7) #45 grams nitrofurantoin 100 mg PO Q12H 3 days #6 caps 10/09/24 monohydrate/macrocrystals 100 mg capsule (Macrobid) miconazole nitrate 2 % topical 1 appl topical BID #28 grams 01/01/25 cream valsartan 160 mg tablet 160 mg PO DAILY #90 tabs 01/20/25 ofloxacin 0.3 % ear drops 10 drp otic (ears) DAILY 7 days #5 02/01/25 mL docusate sodium 100 mg capsule 200 mg (2 x 100 mg) PO BID #30 caps 02/07/25 (Col-Rite) polyethylene glycol 3350 17 17 g PO Q8H #238 grams 02/07/25 gram/dose oral powder (ClearLax) white petrolatum 41 % topical 1 appl topical BID PRN irritated 02/07/25 ointment (Advanced Healing skin #50 grams (Petrolatum)) azithromycin 250 mg tablet 250 mg PO DAILY 4 days #4 tabs 02/14/25 (Zithromax) docusate sodium 100 mg capsule 200 mg (2 x 100 mg) PO BID #20 caps 02/24/25 (Colace) polyethylene glycol 3350 17 17 g PO BID #119 grams 02/24/25 gram/dose oral powder (Miralax) simethicone 180 mg capsule 180 mg PO BID PRN abdominal 03/03/25 distention #14 caps clonazepam 0.5 mg tablet 0.5 mg PO DAILY #4 tabs 04/17/25 acetaminophen 500 mg tablet 500 mg PO Q6H PRN fever or pain 05/04/25 #30 tabs meclizine 12.5 mg tablet 12.5 mg PO TID PRN vertigo 5 days 07/18/25 #20 tabs Allergies Allergy/AdvReac Type Severity Reaction Status Date / Time penicillin G (Penicillin G) Allergy Severe ITCHY/RASH Verified 07/18/25 06:31 Sulfa (Sulfonamide Allergy Severe ITCHY,RASH, Verified 07/18/25 06:31 Antibiotics) (Sulfa rash (Sulfonamides)) trimethoprim (From Bactrim) Allergy Severe HIVES Verified 07/18/25 06:31 Penicillins Allergy Intermediate Hives Verified 07/18/25 06:31 sulfamethoxazole (From Allergy Mild Hives Verified 07/18/25 06:31 Bactrim) Review of Systems Constitutional: Constitutional: Reports as per [facility] Past Medical History 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 or 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 (pharmacy clinical coordinator) Unable to assess alcohol history related to: Unknown Alcohol intake: never Patient Tobacco Use Status: Never used Tobacco Smoked in Last 30 Days: No Use of substances other than those prescribed or required for medical reasons: No Advance Directives: Yes Advance Directives on File: Yes Advance Directives Date on File: 01/28/24 Do you have a plan to hurt others: No Plan service: No Physical Exam Vital Signs: Vital Signs: Last Vital Signs Temp 98.4 F 07/18/25 06:18 Pulse 80 07/18/25 06:18 Resp 18 07/18/25 06:18 BP 145/82 H 07/18/25 06:18 Pulse Ox 97 07/18/25 06:18 O2 Del Method Room Air 07/18/25 06:18 BMI result Body Mass Index 37.1 Const: Other: Gen: ?Overall well-appearing patient HEENT: PERRLA, EOMI, MMM, no scleral icterus, pupils 3 mm reactive bilaterally, some ear wax in the right ear left ear exam unremarkable CV: RRR, no obvious murmurs appreciated Resp: ?No wheezing rales rhonchi no stridor moving air well Abd: ?Bowel sounds are present, no tenderness no rebound no rigidity MSK: FROM, strength 5/5 all extremities Skin: Warm, dry, intact, Neuro: ?Alert and oriented x3, moving upper and lower extremities symmetrically, no obvious facial asymmetry noted, fatigable right-sided nystagmus horizontal without rotary or vertical component, no dysmetria noted upper or lower extremities Medications Administered Discontinued Medications Generic Name Dose Route Start Last Admin Trade Name Beau PRN Reason Stop Dose Admin Meclizine HCl 25 mg 07/18/25 06:33 07/18/25 06:57 Meclizine Hcl 25 Mg Tablet PO 07/18/25 06:34 25 mg ONCE ONE Administration Ondansetron HCl 4 mg 07/18/25 06:33 07/18/25 07:00 Ondansetron Odt 4 Mg Tab.Rapdis TRANSLINGU 07/18/25 06:34 4 mg ONCE ONE Administration Scopolamine 1.5 mg 07/18/25 06:33 07/18/25 06:59 Scopolamine 1.5 Mg Patch.Td.3 EAR-BEHIND 07/18/25 06:34 1.5 mg ONCE ONE Administration Medical Decision Making Medical Decision Making [facility] Narrative: 7:17 AM 07/18/2025 (Dr. Rafael Calderon): Patient is presenting with dizziness, there was evidence of benign peripheral vertigo in the right side, there was also some ear wax impaction in the right side, no visual field changes, no evidence for acute glaucoma, there was no evidence for cerebellar stroke, or cerebral stroke, my differential as below, anticipating discharge with symptomatic relief, she is also quite a bit anxious but medical issues we will be evaluated 1st Differential Diagnosis Differential Diagnoses: The differential diagnosis associated with the presentation includes (Acute angle closure glaucoma, vertigo, cerebellar stroke, ACS, dehydration, electrolyte derangements) Admission/Observation Consideration of admission/observation: Escalation of care including admission/observation considered 2022 Emergency Medicine Coding Guide from [facility] on 07/18/2025 All calculations should be rechecked by clinician prior to use RESULT SUMMARY: 5 Estimated Level of Service Problems: Moderate (4) Risk: High (5) Data: Extensive (5) NARRATIVE MDM: This patient's problem complexity is Moderate as patient: has a new undiagnosed problem with uncertain prognosis but that could be serious. This patient's risk is High due to: overall presentation requiring evaluation for a potentially High-risk process. This patient's data complexity is Extensive due to: -multiple tests ordered -independent interpretation of imaging or EKG INPUTS: Number and Complexity ?> 5 = 4: undiagnosed new problem, uncertain outcome (e) Risk level ?> 4 = High Tests ordered ?> 3 = >= Tests results reviewed (excluding labs) ?> 1 = 1 Prior external notes reviewed ?> 0 = 0 Assessment requiring and independent historian ?> 0 = No Independent interpretation of tests ?> 1 = Yes Discussed management/test interpretation w/external professional ?> 0 = No Lab Data [facility] Lab Attestation statement: I reviewed the patient's lab results. 07/18/25 06:47 07/18/25 06:47 Labs: Lab Results 07/18/25 Range/Units 06:47 WBC 5.8 (4.8-10.8) X10*3/uL RBC 3.98 L (4.20-5.50) X10*6/uL Hgb 11.1 L (12.0-16.0) g/dl Hct 34.3 L (37.0-47.0) % MCV 86.2 (80.0-98.0) fL MCH 27.9 (27.0-33.0) pg MCHC 32.4 (31.0-35.0) g/dl RDW 14.3 (11.0-16.0) % Plt Count 264 (160-400) X10*3/uL MPV 8.4 L (9.4-12.3) fL Immature Gran % (Auto) 0.3 (0.0-0.4) % Neut % (Auto) 59.7 (45-73) % Lymph % (Auto) 25.6 (20-40) % [place] % (Auto) 11.4 H (2-11) % Eos % (Auto) 2.1 (0-4) % Baso % (Auto) 0.9 (0-2) % Lymph # (Auto) 1.5 (1.2-4.9) X10*3/uL [place] # (Auto) 0.7 (0.1-1.2) X10*3/uL Eos # (Auto) 0.1 (0.0-0.4) X10*3/uL Baso # (Auto) 0.1 (0.0-0.2) X10*3/uL Abs Immat Gran (auto) 0.02 (0.00-0.03) X10*3/uL Absolute Neuts (auto) 3.5 (2.0-8.3) x10*3/uL Absolute Nucleated RBC 0.000 (0.0-0.012) X10*3/uL Nucleated RBC % (auto) 0.0 (0.0-0.2) /100WBC Sodium 141 (135-145) mmol/L Potassium 4.6 (3.3-5.1) mmol/L Chloride 105 (96-108) mmol/L Carbon Dioxide 30 H (22-29) mmol/L Anion Gap 11 L (12-20) BUN 25 H (9-16) mg/dL Creatinine 0.96 (0.5-1.4) mg/dL Estim Creat Clear Calc 50.3 Estimated GFR 56 Random Glucose 101 (60-115) mg/dL Calcium 8.8 D (8.4-10.2) mg/dL Independent Interpretation I performed an independent interpretation of an: EKG (76 beats per minute, no QTC prolongation, LVH, no axis deviation, my independent interpretation) Tests considered The following testing was considered but not selected: CT brain Discharge Plan Discharge Clinical Impression: Vertigo, Generalized anxiety disorder with panic attacks Additional Instructions: Evaluated with dizziness, spinning sensation, nausea, you had blood work, cardiac enzymes, EKG, physical examination, the vital signs has been reassuring, you do have some ear wax in the right ear and you can follow up with the PCP or obtain a kit for ear wax removal these are [id number] nothing that can prescribed, and try to remove the ear wax has sometimes that causes dizziness, potentially a PCP can refer you to an ear nose throat doctor for that procedure, in the meantime use meclizine as prescribed, follow up with the PCP for worsening issues concerns. Meclizine as a medication used for dizziness. It can make you drowsy so be careful with takeing it. Prescriptions: New meclizine 12.5 mg tablet 12.5 mg PO TID PRN (Reason: vertigo) 5 Days Qty: 20 0RF No Action metoprolol succinate 50 mg tablet extended release 24 hr 50 mg PO DAILY Qty: 90 2RF valsartan 160 mg tablet 160 mg PO DAILY Qty: 90 1RF mirtazapine 45 mg Tablet 45 mg PO BEDTIME omeprazole 20 mg Tablet,Delayed Release (Dr/Ec) 20 mg PO DAILY@0630 fluticasone propionate [Flonase Allergy Relief] 50 mcg/actuation spray,suspension 2 spray intranasal DAILY Qty: 16 0RF Rx Instructions: administer into each nostril hydroxyzine HCl 25 mg tablet 25 mg PO TID PRN (Reason: anxiety) Qty: 6 0RF hydroxyzine HCl 25 mg tablet 25 mg PO TID PRN (Reason: anxiety) Qty: 20 0RF miconazole nitrate 2 % cream 1 appl topical BID Qty: 28 0RF azithromycin [Zithromax] 250 mg tablet 250 mg PO DAILY 4 Days Qty: 4 0RF Rx Instructions: start on day 2 of therapy clonazepam 0.5 mg tablet 0.5 mg PO DAILY Qty: 4 0RF trazodone 50 mg tablet 50 mg PO BEDTIME ferrous sulfate [FeroSul] 325 mg (65 mg iron) tablet 325 mg PO DAILY diphenhydramine HCl [Lou-Dryl] 25 mg tablet 25 mg PO BEDTIME PRN (Reason: itch) bisacodyl 5 mg tablet,delayed release (DR/EC) 5 mg PO DAILY PRN (Reason: constipation) rosuvastatin 20 mg tablet 20 mg PO BEDTIME aspirin 81 mg tablet,delayed release (DR/EC) 81 mg PO QAM multivitamin Tablet 1 tab PO QAM melatonin 10 mg tablet extended release 10 mg PO BEDTIME PRN (Reason: Insomnia) cholecalciferol (vitamin D3) 25 mcg (1,000 unit) tablet 25 mcg PO DAILY ondansetron 4 mg tablet,disintegrating 4 mg PO Q6H PRN (Reason: nausea and vomiting) Qty: 10 0RF acetaminophen 500 mg tablet 500 mg PO Q8H PRN (Reason: pain) zolpidem 5 mg tablet 5 mg PO BEDTIME PRN (Reason: Insomnia) ipratropium bromide 21 mcg (0.03 %) spray,non-aerosol 2 spray intranasal BID clonazepam 0.5 mg Tablet 0.5 mg PO TID Qty: 180 0RF gabapentin 100 mg Capsule 100 mg PO TID Qty: 180 0RF nitrofurantoin monohyd/m-cryst [Macrobid] 100 mg capsule 100 mg PO Q12H 3 Days Qty: 6 0RF Rx Instructions: must administer with a meal/food miconazole nitrate [Monistat 7] 2 % cream 1 appful vaginal BEDTIME 7 Days Qty: 45 0RF ofloxacin 0.3 % drops 10 drp otic (ears) DAILY 7 Days Qty: 5 0RF docusate sodium [Col-Rite] 100 mg capsule 200 mg PO BID Qty: 30 0RF polyethylene glycol 3350 [ClearLax] 17 gram/dose powder 17 g PO Q8H Qty: 238 0RF Advanced Healing (Petrolatum) 41 % ointment 1 appl topical BID PRN (Reason: irritated skin) Qty: 50 0RF docusate sodium [Colace] 100 mg capsule 200 mg PO BID Qty: 20 0RF polyethylene glycol 3350 [Miralax] 17 gram/dose powder 17 g PO BID Qty: 119 0RF simethicone 180 mg capsule 180 mg PO BID PRN (Reason: abdominal distention) Qty: 14 0RF acetaminophen 500 mg tablet 500 mg PO Q6H PRN (Reason: fever or pain) Qty: 30 0RF sertraline 100 mg tablet 100 mg PO DAILY amlodipine 10 mg tablet 10 mg PO DAILY meclizine 25 mg tablet 25 mg PO DAILY PRN Print Language: Armenian
--- NOTE | 2025-07-18 06:39 | PC.NURSE ---
on arrival the patient ambulated steadily from [facility] to ED stretcher, states no change in symptoms during this transfer
[2025-07-18 06:52] LABS: MANUAL DIFF FLAG NO
[2025-07-18 06:55] LABS: Hematocrit 34.3 % (37.0-47.0); Hemoglobin 11.1 g/dl (12.0-16.0); Imm Gran Abs Auto 0.02 X10*3/uL (0.00-0.03); Imm Gran Pct Auto 0.3 % (0.0-0.4); Lymphocytes Absolute Auto 1.5 X10*3/uL (1.2-4.9); Mean Corpuscular HGB Conc 32.4 g/dl (31.0-35.0); Mean Corpuscular Hemoglobin 27.9 pg (27.0-33.0); Mean Corpuscular Volume 86.2 fL (80.0-98.0); NRBC Abs Auto 0.000 X10*3/uL (0.0-0.012); NRBC Pct Auto 0.0 /100WBC (0.0-0.2); Platelet Count 264 X10*3/uL (160-400); Red Blood Count 3.98 X10*6/uL (4.20-5.50); White Blood Count 5.8 X10*3/uL (4.8-10.8)
[2025-07-18 07:09] LABS: Anion Gap 11 (12-20); Blood Urea Nitrogen 25 mg/dL (9-16); Calcium 8.8 mg/dL (8.4-10.2); Carbon Dioxide 30 mmol/L (22-29); Chloride 105 mmol/L (96-108); Creatinine Clr Calc Pharmacy 50.3; Estimated Glomerular Filt Rate 56; Potassium 4.6 mmol/L (3.3-5.1); Sodium 141 mmol/L (135-145)
[2025-07-18 07:20] LABS: Troponin-I High Sensitivity < 2.7 ng/L (<3.5-17.0)
[2025-07-18 07:31] VITALS: BP 136/85; PULSE 97; RESP 18; TEMP 36.7; O2SAT 98
[2025-07-18] MEDS: clonazePAM ODT 0.5 MG TAB.RAPDIS PO (07:41)
[2025-07-18 07:42] VITALS: BP 136/85; PULSE 94; RESP 16; TEMP 36.7; O2SAT 98
[2025-07-18 07:56] VITALS: BP 136/85; PULSE 94; RESP 16; TEMP 36.7; O2SAT 98
--- NOTE | 2025-07-18 08:00 | PC.NURSE ---
pt requesting to leave despite being up for discharge. provider notified/aware. per provider, pt ok to d/c. automotive parts interpreter utilized to go over d/c paperwork.
== END 2025-07-18 08:14 | disposition home or self-care (01) ==
PROVIDERS: Emergency Provider Emergency Medicine
DX: F41.0 Panic disorder [episodic paroxysmal anxiety] (principal); R42 Dizziness and giddiness; F41.9 Anxiety disorder, unspecified; R11.0 Nausea; Z79.899 Other long term (current) drug therapy
CPT/HCPCS: 36415; 80048; 84484; 85025; 93005; 99283; 99285

== ENCOUNTER → 2025-07-18 06:33 | Outpatient (BNV) | payer OTHER, SELFPAY | PROVIDERS: Emergency Provider Emergency Medicine; Visit Provider Internal Medicine Cardiovascular Disease | DX: I42.2 Other hypertrophic cardiomyopathy (principal); I49.8 Other specified cardiac arrhythmias | CPT/HCPCS: 93010 ==

== ENCOUNTER 2025-07-24 02:21 | Emergency (ER) | payer OTHER, SELFPAY ==
--- NOTE | 2025-07-24 | ECG_ITS ---
Test Reason : CP Blood Pressure : */* mmHG Vent. Rate : 79 BPM Atrial Rate : 79 BPM P-R Int : 182 ms QRS Dur : 96 ms QT Int : 380 ms P-R-T Axes : 40 -28 10 degrees QTcB Int : 435 ms Normal sinus rhythm Moderate voltage criteria for LVH, may be normal variant ( R in aVL , [place] product ) Borderline ECG When compared with ECG of 18-Jul-2025 06:40, No significant change was found Referred By: Generic ED Physician Electronically Signed By: KATRINA PARSONS MD
--- NOTE | ~2025-07-24 | XR_ITS ---
CLINICAL HISTORY: pain 4 view, chest and left ribs Comparison: None provided Findings: Bones intact. No dislocations. The visualized lungs are normal. No pneumothorax or effusion. Heart is top-normal in size. IMPRESSION: 1. No acute displaced rib fractures identified. This document has been electronically signed by: Leigh Wild MD on 07/24/2025 04:18:10
[2025-07-24 02:22] VITALS: BP 134/65; BP 150/70; PULSE 79; PULSE 88; RESP 20; TEMP 36.4; O2SAT 94; O2SAT 97; BMI 36.5
--- OUTSIDE RECORDS SUMMARY | 2025-07-24 02:31 | XMS_ITS | Encounter Summary ---
Author Organization [employer] Address [address] [facility] [address] [place] [address] Care Team Providers Care Insole Rasper Name Role Phone Name, Nitin PIKE Primary Care Provider [phone] Reason for Visit * Reason Comments Med Refill Encounter Details Date Type Department Care Team (Late st Contact Info) Description 04/20/2025 Refill [facility] [address] [place] [address] Zechariah Cheung MD [address] [place] [address] Allergic rhinitis, unspecified seasonality, unspecified trigger Social [...] 11:15 AM EDT Office Visit [facility] [address] [place] [address] NameNitin MD [address] [place] [address] documented as of this encounter Visit Diagnoses Diagnosis Allergic rhinitis, unspecified seasonality, unspecified trigger documented in this encounter Additional Health Concerns Assessment Noted Time PHQ-9 Depression Total Score: 6 02/13/20 24 9:14 AM EDT documented as of this encounter Care Teams Insole Rasper Relationship Specialty Start Date End Date Nitin Echevarria MD [address] [place] [address] PCP - General Family Medicine 08/26/17 [facility] 09/01/24 documented as of this encounter
--- OUTSIDE RECORDS SUMMARY | 2025-07-24 02:31 | XMS_ITS | Clinical Summary ---
Author Organization [facility] Address [address] [place] [address] Phone Care Team Providers Care Real Estate Portfolio Manager Name Role Phone Physician, No Pcp [...] mmol/L LAB CHEMISTRY METHOD 09/22/2024 3:15 AM [facility] Potassium 4.6 3.5 - 5.5 mmol/L LAB CHEMISTRY METHOD 09/22/2024 3:15 AM [facility] Chloride 98 96 - 110 mmol/L LAB CHEMISTRY METHOD 09/22/2024 3:15 AM [facility] CO2 28 21 - 32 mmol/L LAB CHEMISTRY METHOD 09/22/2024 3:15 AM [facility] Anion Gap 6 3 - 11 LAB CHEMISTRY METHOD 09/22/2024 3:15 AM [facility] Glucose 119(H) 70 - 100 mg/dL LAB CHEMISTRY METHOD 09/22/2024 3:15 AM [facility] BUN 25 5 - 25 mg/dL LAB CHEMISTRY METHOD 09/22/2024 3:15 AM [facility] Creatinine 1.18(H) 0.50 - 1.10 mg/dL LAB CHEMISTRY METHOD 09/22/2024 3:15 AM [facility] eGFR 47(L) >=60 mL/min/1. 73m2 LAB CHEMISTRY METHOD 09/22/2024 3:15 AM [facility] Comment:Calculation based on the Chronic Kidney Disease Epidemiology Collaboration (CKD-EPI) equation refit without adjustment for race. BUN/Creatinine Ratio 21.2 LAB CHEMISTRY METHOD 09/22/2024 3:15 AM [facility] Calcium 9.3 8.5 - 10.5 mg/dL LAB CHEMISTRY METHOD 09/22/2024 3:15 AM [facility] AST (SGOT) 37 10 - 42 unit/L LAB CHEMISTRY METHOD 09/22/2024 3:15 AM [facility] ALT (SGPT) 25 10 - 60 unit/L LAB CHEMISTRY METHOD 09/22/2024 3:15 AM [facility] Alkaline Phosphatase 77 42 - 121 unit/L LAB CHEMISTRY METHOD 09/22/2024 3:15 AM [facility] Total Protein 8.0 6.0 - 8.0 g/dL LAB CHEMISTRY METHOD 09/22/2024 3:15 AM EST [facility] Albumin 4.2 3.2 - 5.0 g/dL LAB CHEMISTRY METHOD 09/22/2024 3:15 AM EST [facility] Total Bilirubin 0.4 0.0 - 1.4 mg/dL LAB CHEMISTRY METHOD 09/22/2024 3:15 AM EST [facility] Blood Venous blood specimen / Unknown Venipuncture / Unknown 09/22/2024 2:28 AM EST 09/22/2024 2:31 AM EST Paul RUIZ LAB BLOOD ORDERABLES Final Resul t [facility] [address] [place] [address], from Last 3 Months or Most Recently Relevant to Health Maintenance Insurance [facility]IC[facility] Member Subscriber Plan / Payer (Ef fective 2021-Present) Name:Noreen Wing Relation to Subscriber:Self Name:Noreen Wing Payer ID:[id number] Group ID:[id number] Type:Not on file Address: [address] [address] [address] Care Teams Real Estate Portfolio Manager Relationship Specialty Start Date End Date Physician, No Pcp PCP - General 09/22/24
--- OUTSIDE RECORDS SUMMARY | 2025-07-24 02:31 | XMS_ITS | Encounter Summary ---
Author Organization [employer] Address [address] [facility] [address] [place] [address] Care Team Providers Care Belt Sander Stone Name Role Phone Name, Nitin PIKE Primary Care Provider [phone] Reason for Visit * Reason Onset Date Comments ER Follow-up 05/04/2024 Encounter Details Date Type Department Care Team ([facility] Contact Info) Description 05/04/2024 Telephone [facility] [address] [place], [place] [phone] Name, MD Nitin [address] [place] [address] ER Follow-up Social History Tobacco Use Types [...] 11:01 AM EDT T/C to pt. Through [place] id - [id number] for below message, No answer. LVM to call back [phone] . * Telephone Encounter - Adithya Solorzano - 05/04/2024 9:35 AM EDT Noreen with [facility] calling to report ED visit on : Date: 04/28 Hospital: [facility] Seen for: UTI, Nausea, Rash. Noreen advised will be forwarding message to team nurses. Please contact pt at [phone]. documented in this encounter Plan of Treatment Upcoming Encounters Date Type Department Care Team (Late st Contact Info) Description 08/09/2025 11:15 AM EDT Office Visit [facility] [address] [place] [address] Name, MD Nitin [address] [place] [address] documented as of this encounter Visit Diagnoses Not on filedocumented in this encounter Additional Health Concerns Assessment Noted Time PHQ-9 Depression Total Score: 6 02/13/20 24 9:14 AM EDT documented as of this encounter Care Teams Belt Sander Stone Relationship Specialty Start Date End Date Name, MD Nitin [address] [place] [address] PCP - General Family Medicine 08/26/17 [facility] 09/01/24 documented as of this encounter
--- OUTSIDE RECORDS SUMMARY | 2025-07-24 02:31 | XMS_ITS | Encounter Summary ---
Author Organization [employer] Address [address] [facility] [address] [place] [address] Care Team Providers Care Commercial Portfolio Manager Name Role Phone Name, Nitin PIKE Primary Care Provider [phone] Reason for Visit * Reason Onset Date Comments Hospital Follow-up 10/20/2024 Encounter Details Date Type Department Care Team ([facility] Contact Info) Description 10/20/2024 Telephone [facility]INE [address] [place], [place] [phone] Name, MD Nitin [address] [place] [address] Hospital Follow-up Social History Tobacco Use Types [...] from pt requesting a HDF appt. [place] [facility] [place] of admission: 10/17 Discharge date: 10/19 Diagnosed: High Blood Pressure and Fever Contact pt at [phone] *Send message to [place] Clinical Care Coordinators documented in this encounter Plan of Treatment Upcoming Encounters Date Type Department Care Team (Late st Contact Info) Description 08/09/2025 11:15 AM EDT Office Visit [facility]INE [address] [place] [address] Name, MD Nitin [address] [place] [address] documented as of this encounter Visit Diagnoses Not on filedocumented in this encounter Additional Health Concerns Assessment Noted Time PHQ-9 Depression Total Score: 6 02/13/20 24 9:14 AM EDT documented as of this encounter Care Teams Commercial Portfolio Manager Relationship Specialty Start Date End Date Name, MD Nitin [address] [place] [address] PCP - General Family Medicine 08/26/17 [facility] 09/01/24 documented as of this encounter
--- OUTSIDE RECORDS SUMMARY | 2025-07-24 02:31 | XMS_ITS | Encounter Summary ---
Author Organization [employer] Address 75 [facility] [address] [place] [address] Care Team Providers Care Vocational Psychologist Name Role Phone Name, Nitin PIKE Primary Care Provider [phone] Reason for Visit * Reason Comments Med Refill Encounter Details Date Type Department Care Team ([facility] st Contact Info) Description 07/18/2025 Refill [facility]S [address] [place], [place] [phone] Miryam Riley, KIKO [address] [place] [address] Social History Tobacco Use Types Packs/Day Years [...] Description 08/09/2025 11:15 AM EDT Office Visit [facility] [address] [place] [address] NameNitin MD [address] [place] [address] documented as of this encounter Visit Diagnoses Not on filedocumented in this encounter Additional Health Concerns Assessment Noted Time PHQ-9 Depression Total Score: 3 04/29/20 25 9:41 AM EDT documented as of this encounter Care Teams Vocational Psychologist Relationship Specialty Start Date End Date NameNitin MD [address] [place] [address] PCP - General Family Medicine 08/26/17 [facility] 09/01/24 documented as of this encounter
--- OUTSIDE RECORDS SUMMARY | 2025-07-24 02:31 | XMS_ITS | Encounter Summary ---
Author Organization [employer] Address 75 [facility] [address] [place] [address] Care Team Providers Care Cake Decorator Name Role Phone Name, Nitin PIKE Primary Care Provider [phone] Reason for Visit * Reason Onset Date Comments Med Refill 11/08/2024 Encounter Details Date Type Department Care Team ([facility] st Contact Info) Description 11/08/2024 Telephone [facility] MED[facility]INE [address] [place], [place] [phone] Name, MD Nitin [address] [place] [address] Med Refill Social History Tobacco Use Types [...] 5 MG tablet To be sent to: [facility] - [place], [place] - [address] [facility] documented in this encounter Plan of Treatment Upcoming Encounters Date Type Department Care Team ([facility] st Contact Info) Description 08/09/2025 11:15 AM EDT Office Visit [facility] MED[facility]INE [address] [place] [address] Name, MD Nitin [address] [place] [address] documented as of this encounter Visit Diagnoses Not on filedocumented in this encounter Additional Health Concerns Assessment Noted Time PHQ-9 Depression Total Score: 6 02/13/20 24 9:14 AM EDT documented as of this encounter Care Teams Cake Decorator Relationship Specialty Start Date End Date Name, MD Nitin [address] [place] [address] PCP - General Family Medicine 08/26/17 [facility] 09/01/24 documented as of this encounter
--- OUTSIDE RECORDS SUMMARY | 2025-07-24 02:32 | XMS_ITS | Encounter Summary ---
Author Organization [employer] Address 75 [facility] [address] [place] [address] Care Team Providers Care Platform Material Handling Supervisor Name Role Phone Name, Nitin PIKE Primary Care Provider [phone] Reason for Visit * Reason Onset Date Comments Verbal Orders 01/02/2024 Encounter Details Date Type Department Care Team ([facility] st Contact Info) Description 01/02/2024 Telephone [facility] [address] [place], [place] [phone] Name, MD Nitin [address] [place] [address] Verbal Orders Social History Tobacco Use Types [...] No answer. LVM to call back on [phone]. * Telephone Encounter - Melany Santos RN - 01/06/2024 10:25 AM EST Please review and advise for below request. * Telephone Encounter - Deana Bazzi - 01/02/2024 3:44 PM EST Tc from [facility] with S requesting verbal orders for discharge pt from Occupational Therapy, due to pt refuses services, please contact [facility] at [phone]. documented in this encounter Plan of Treatment Upcoming Encounters Date Type Department Care Team (Late st Contact Info) Description 08/09/2025 11:15 AM EDT Office Visit [facility] MEDICINE [address] [place] [address] Name, MD Nitin [address] [place] [address] documented as of this encounter Visit Diagnoses Not on filedocumented in this encounter Additional Health Concerns Assessment Noted Time PHQ-9 Depression Total Score: 12 023 9:37 AM EDT documented as of this encounter Care Teams Platform Material Handling Supervisor Relationship Specialty Start Date End Date Name, MD Nitin [address] [place] [address] PCP - General Family Medicine 08/26/17 [facility] 09/01/24 documented as of this encounter
--- OUTSIDE RECORDS SUMMARY | 2025-07-24 02:32 | XMS_ITS | Encounter Summary ---
Author Organization [employer] Address 75 [facility] 7[address] [place] [address] Care Team Providers Care Director Of Pupil Personnel Program Name Role Phone Name, Nitin PIKE Primary Care Provider [phone] Reason for Visit * Reason Onset Date Comments Order(s) 12/09/2023 Encounter Details Date Type Department Care Team ([facility] Contact Info) Description 12/09/2023 Telephone [facility] MEDICINE [address] [place], [place] [phone] Name, MD Nitin [address] [place], [place] [phone] Order(s) Social History Tobacco Use Types Packs/Day [...] orders. If any questions please contact Noreen [phone]. documented in this encounter Plan of Treatment Upcoming Encounters Date Type Department Care Team (Late st Contact Info) Description 08/09/2025 11:15 AM EDT Office Visit [facility] MEDICINE [address] [place] [address] Name, MD Nitin [address] [place] [address] documented as of this encounter Visit Diagnoses Not on filedocumented in this encounter Additional Health Concerns Assessment Noted Time PHQ-9 Depression Total Score: 12 023 9:37 AM EDT documented as of this encounter Care Teams Director Of Pupil Personnel Program Relationship Specialty Start Date End Date Name, MD Nitin [address] [place] [address] PCP - General Family Medicine 08/26/17 [facility] 09/01/24 documented as of this encounter
--- OUTSIDE RECORDS SUMMARY | 2025-07-24 02:32 | XMS_ITS | Encounter Summary ---
Author Organization [employer] Address 75 [facility] 7[address] [place] [address] Care Team Providers Care Digital X Ray Service Engineer Name Role Phone Name, Nitin PIKE Primary Care Provider [phone] Reason for Visit * Reason Onset Date Comments Durable Medical Equipment 12/09/2023 Encounter Details Date Type Department Care Team ([facility] st Contact Info) Description 12/09/2023 Telephone [facility] MEDICINE [address] [place], [place] [phone] Name, MD Nitin [address] [place], [place] [phone] Durable Medical Equipment Social History Tobacco Use [...] 10:11 AM EST DME rx faxed to [facility] as requested. RN will consult with S nurse and provide referral. * Telephone Encounter - Fozia Jacob RN - 12/09/2023 4:58 PM EST Call returned to [facility][1] at [facility] [phone] ext. [phone]. [facility][1] states that [facility] attempted to provide PT at home but pt refused. [facility] pt is requesting outpatient PT. [facility] pt is seeing a counselor more regularly and has agreed to VNA referral. Reports pt has had 3 falls in the past 2 months. [facility][1] states [facility] no longer has visiting nurses. [facility][1] recommends [facility] or [facility] for VNA referral. [facility][1] also requesting DME rx for rollator walker and a straight cane. Requests that DME rx be faxed to [phone]. Advised requests will be sent to pcp. * Telephone Encounter - Adithya Solorzano - 12/09/2023 4:25 PM EST Tc from [facility] requesting DME: Rollator walker . documented in this encounter Plan of Treatment Upcoming Encounters Date Type Department Care Team (Late st Contact Info) Description 08/09/2025 11:15 AM EDT Office Visit [facility] MEDICINE [address] [place] [address] Name, MD Nitin [address] [place] [address] documented as of this encounter Visit Diagnoses Not on filedocumented in this encounter Additional Health Concerns Assessment Noted Time PHQ-9 Depression Total Score: 12 023 9:37 AM EDT documented as of this encounter Care Teams Digital X Ray Service Engineer Relationship Specialty Start Date End Date Name, [place] [address] PCP - General Family Medicine 08/26/17 [facility] 09/01/24 documented as of this encounter
--- OUTSIDE RECORDS SUMMARY | 2025-07-24 02:32 | XMS_ITS | Encounter Summary ---
Author Organization [employer] Address [address] [facility] [address] [place] [address] Care Team Providers Care Programmer Developer Name Role Phone Name, Nitin PIKE Primary Care Provider [phone] Reason for Visit * Reason Onset Date Comments Call Back Request 03/14/2025 Encounter Details Date Type Department Care Team ([facility] st Contact Info) Description 03/14/2025 Telephone [facility] MEDICINE [address] [place], [place] [phone] Name, MD Nitin [address] [place] [address] Call Back Request Social History Tobacco Use [...] Description 08/09/2025 11:15 AM EDT Office Visit [facility] MEDICINE [address] [place] [address] Name, MD Nitin [address] [place] [address] documented as of this encounter Visit Diagnoses Not on filedocumented in this encounter Additional Health Concerns Assessment Noted Time PHQ-9 Depression Total Score: 6 02/13/20 24 9:14 AM EDT documented as of this encounter Care Teams Programmer Developer Relationship Specialty Start Date End Date Name, MD Nitin [address] [place] [address] PCP - General Family Medicine 08/26/17 [facility] 09/01/24 documented as of this encounter
--- OUTSIDE RECORDS SUMMARY | 2025-07-24 02:32 | XMS_ITS | Encounter Summary ---
Author Organization [employer] Address 75 [facility] 7[address] [place] [address] Care Team Providers Care Satellite Communications Engineer Name Role Phone Name, Nitin PIKE Primary Care Provider [phone] Reason for Visit * Reason Comments Med Refill Encounter Details Date Type Department Care Team (Late Contact Info) Description 03/02/2023 Refill [facility] MEDICINE [address] [place] [address] Karely Patiño MD [address] [place] [address] [phone] Social History Tobacco Use Types Packs/Day Years [...] EDT Office Visit [facility] MEDICINE [address] [place] [address] Wale, MD Nitin [address] [place] [address] documented as of this encounter Visit Diagnoses Not on filedocumented in this encounter Care Teams Satellite Communications Engineer Relationship Specialty Start Date End Date Name, MD Nitin [address] [place] [address] PCP - General Family Medicine 08/26/17 [facility] 09/01/24 documented as of this encounter
--- OUTSIDE RECORDS SUMMARY | 2025-07-24 02:32 | XMS_ITS | Clinical Summary ---
Author Organization [facility] Address [address] [address] Care Team Providers Care Unemployment Benefits Claims Taker Name Role Phone Name, Nitin PIKE Primary Care Provider [phone] Allergies Active Allergy Reactions Criticality Noted Date [...] patient's age to complete this [place] [address] [place] [address] MCR ([id number]) [place] [phone] [facility] MCR ([id number]) Care Teams Unemployment Benefits Claims Taker Relationship Specialty Start Date End Date Name, MD Nitin [address] [place] [address] PCP - General Internal Medicine 10/15/22
--- OUTSIDE RECORDS SUMMARY | 2025-07-24 02:32 | XMS_ITS | Encounter Summary ---
Author Organization [employer] Address [address] [facility] 7[address] [place] [address] Care Team Providers Care Manager Multicultural Name Role Phone Name, Nitin PIKE Primary Care Provider [phone] Encounter Details Date Type Department Care Team ([facility] Contact Info) Description 12/17/2022 Orders Only [facility] CH[facility] MED & PEDS [address] [place], [place] [phone] Lisha Kelly LPN Social History Tobacco Use [...] 11:15 AM EDT Office Visit [facility] MEDICINE [address] [place] [address] Nitin Echevarria MD [address] [place] [address] documented as of this encounter Visit Diagnoses Not on filedocumented in this encounter Care Teams Manager Multicultural Relationship Specialty Start Date End Date NameNitin MD [address] [place] [address] PCP - General Family Medicine 08/26/17 [facility] 09/01/24 documented as of this encounter
--- OUTSIDE RECORDS SUMMARY | 2025-07-24 02:32 | XMS_ITS | Encounter Summary ---
Author Organization [employer] Address 75 [facility] 7[address] [place] [address] Care Team Providers Care Public Health Sanitarian Technician Name Role Phone Name, Nitin PIKE Primary Care Provider [phone] Encounter Details Date Type Department Care Team (Late st Contact Info) Description 11/06/2022 Orders Only [facility] MED & PEDS [address] [place], [place] [phone] Lisha Kelly LPN Social History Tobacco Use [...] Description 08/09/2025 11:15 AM EDT Office Visit [facility] MEDICINE [address] [place] [address] NameNitin MD [address] [place] [address] documented as of this encounter Visit Diagnoses Not on filedocumented in this encounter Care Teams Public Health Sanitarian Technician Relationship Specialty Start Date End Date Nitin Echevarria MD [address] [place] [address] PCP - General Family Medicine 08/26/17 [facility] 09/01/24 documented as of this encounter
--- OUTSIDE RECORDS SUMMARY | 2025-07-24 02:32 | XMS_ITS | Clinical Summary ---
Author Organization [employer] Address [address] [place] [address] [address] [place] [address] Care Team Providers Care Instructional Technology Facilitator Name Role Phone Name, Nitin PIKE Primary Care Provider [phone] Allergies Active Allergy Reactions Criticality Noted Date [...] MOUTH EVERY 8 HOURS NEEDED FOR PAIN (MACANESE LABEL) 90 tablet Active ammonium lactate (Lac-Hydrin) [...] to 7 days. 7 tablet 025 Active linaCLOtide (Linzess) 145 MCG capsuleIndication [...] per day. 45 g 025 2025 Active clonazePAM (KlonoPIN) 0.5 MG tablet Take [...] at bedtime (allergies). 10 mL 025 Active amLODIPine (Norvasc) 10 MG tabletIndications :Hypertension, unspecified type TAKE 1 TABLET BY MOUTH EVERY MORNING 90 tablet 1 025 Active Ferrous Sulfate (iron) 325 (65 Fe) MG tablet TAKE 1 TABLET BY MOUTH EVERY MORNING WITH FOOD 30 tablet 025 Active docusate sodium (Colace) 100 MG capsule 023 2024 Discontinued amLODIPine (Norvasc) 10 MG tabletIndications :Hypertension, unspecified type TAKE 1 TABLET BY MOUTH EVERY MORNING 90 tablet 1 025 2024 Discontinued cholecalciferol (Vitamin D-3) 25 MCG tabletIndications :Vitamin D deficiency TAKE 1 TABLET BY MOUTH TWICE DAILY IN THE MORNING AND IN THE EVENING 60 tablet 025 2024 Discontinued Ferrous Sulfate (iron) 325 (65 Fe) MG tablet TAKE 1 TABLET BY MOUTH EVERY MORNING WITH FOOD 30 tablet 025 2024 Discontinued Active Problems Problem [...] because it calms her down. I called [facility] pharmacy to attempt a med rec they instructed me that she is on med box and one week at a time prescriptions because she would break into her med boxes to take more Ambien or xanax. She is being seen by Izzy Perea at [facility]. He is aware of her behavior and [...] left I received a call from the [facility] pharmacy instructing me that she was at [...] Encounters Date Type Department Care Team Description 07/18/2025 Refill [facility] [address] [place] [address] Miryam Riley NP 07/18/2025 Orders Only GENERIC EXTERNAL DATA DEPARTMENT Provider, Generic External Data 07/17/2025 Refill [facility] [address] [place] [address] Nitin Echevarria MD Hypertension, unspecified type 07/07/2025 8:40 AM EDT Office Visit [facility] [address] [address] Zach Javier MD Acute conjunctivitis of left eye, unspecified acute conjunctivitis type (Primary Dx) 07/07/2025 Travel 07/01/2025 9:20 AM EDT Office Visit [facility] [address] [address] Zach Javier MD Pedal edema (Primary Dx) 07/01/2025 Travel 06/28/2025 Refill [facility] [address] [place] [address] Nitin Echevarria MD 06/27/2025 Refill [facility] [address] [place] [address] Nitin Echevarria MD Vitamin D deficiency 06/19/2025 Refill [facility] [address] [address] Nitin Echevarria MD Prediabetes 06/17/2025 9:30 AM EDT Office Visit [facility] [address] [place] [phone] [place], Thea, [employer] Generalized anxiety disorder with panic attacks (Primary Dx); Essential (primary) hypertension 06/17/2025 Travel 06/17/[address] [address] Nitin Echevarria MD Med Refill (Pt is ) 06/08/2025 Refill [facility] [address] [place], [place] [phone] Nitin Echevarria MD 05/25/2025 Refill [facility] [address] [place], [place] [phone] Miryam Riley NP Vitamin D deficiency 05/11/2025 Refill [facility] [address] [place], [place] [phone] Nitin Echevarria MD 05/06/2025 9:30 AM EDT Clinical Support [address] [address] Betina Slade RN Impacted cerumen of right ear [H61.21] 05/06/2025 Results Follow-Up [address] [address] Nitin Echevarria MD Urinalysis, Complete, with Reflex to Culture, Drug Monitoring, Panel 1, Screen, Urine, Culture, Urine, Routine 05/06/2025 Travel 05/04/2025 Orders Only GENERIC EXTERNAL DATA DEPARTMENT Provider, Generic External Data 04/29/2025 10:00 AM EDT Office Visit [address] [address] Nitin Echevarria MD Generalized anxiety disorder with panic attacks (Primary Dx); Decreased hearing of both ears; Impacted cerumen of right ear; Rash 04/29/2025 Travel 04/27/[address] [phone] Ariel David MA CHARTPREP from Last 3 Months Immunizations Immunization Administration [...] 11:15 AM EDT Office Visit [facility] [address] [facility] [place] [address] Name, MD Nitin [address] [facility] [place] [address] Health Maintenance Due Date Last Done Comments [...] Procedure Name Priority Date/Time Associated Diagnosis Comments HIGH SENSITIVITY TROPONIN I Routine 07/18/2025 6:47 AM EDT BASIC METABOLIC PANEL Routine 07/18/2025 6:47 AM EDT CBC WITH AUTO DIFFERENTIAL Routine 07/18/2025 6:47 AM EDT DRUG MONITOR, PANEL 1, SCREEN, URINE Routine [...] Recently Relevant to Health Maintenance Results * High Sensitivity Troponin I (07/18/2025 6:47 AM EDT) TROPONIN I HIGH SENSITIVITY <2.7 <3.5 - 17.0 ng/L [facility] Comment:The Mckeon high sens itivity Troponin-I results should beused in conjunction with other diagnostic information suchas ECG, clinical observations and information, and patientsymptoms to aid in the diagnosis of VA. 07/18/2025 6:47 AM EDT 07/18/2025 6:50 AM EDT us Generic External Data Provider LAB BLOOD ORDERAB LES Final Result [facility] [address] [place] [address] [phone] * (ABNORMAL) CBC auto differential (07/18/2025 6:47 AM EDT) White Blood Count 5.8 4.8 - 10.8 X10*3/uL [facility] Red Blood Count 3.98(L) 4.20 - 5.50 X10*6/uL [facility] Hemoglobin 11.1(L) 12.0 - 16.0 g/dl [facility] Hematocrit 34.3(L) 37.0 - 47.0 % [facility] Mean Corpuscular Volume 86.2 80.0 - 98.0 fL [facility] Mean Corpuscular Hemoglobin 27.9 27.0 - 33.0 pg [facility] Mean Corpuscular HGB Conc 32.4 31.0 - 35.0 g/dl [facility] Red Cell Distribution Width 14.3 11.0 - 16.0 % [facility] Platelet Count 264 160 - 400 X10*3/uL [facility] Mean Platelet Volume 8.4(L) 9.4 - 12.3 fL [facility] Neutrophils Percent Auto 59.7 45 - 73 % [facility] Imm Gran Pct Auto 0.3 0.0 - 0.4 % [facility] Lymphocytes Percent Auto 25.6 20 - 40 % [facility] Monocytes Percent Auto 11.4(H) 2 - 11 % [facility] Eosinophils Percent Auto 2.1 0 - 4 % [facility] Basophils Percent Auto 0.9 0 - 2 % [facility] NRBC Pct Auto 0.0 0.0 - 0.2 /100WBC [facility] Neutrophils Absolute Auto 3.5 2.0 - 8.3 x10*3/uL [facility] Imm Gran Abs Auto 0.02 0.00 - 0.03 X10*3/uL [facility] Lymphocytes Absolute Auto 1.5 1.2 - 4.9 X10*3/uL [facility] Monocytes Absolute Auto 0.7 0.1 - 1.2 X10*3/uL [facility] Eosinophils Absolute Auto 0.1 0.0 - 0.4 X10*3/uL [facility] Basophils Absolute Auto 0.1 0.0 - 0.2 X10*3/uL [facility] NRBC Abs Auto 0.000 0.0 - 0.012 X10*3/uL [facility] 07/18/2025 6:47 AM EDT 07/18/2025 6:50 AM EDT us Generic External Data Provider LAB BLOOD ORDERAB LES Final Result [facility] [address] [place] [phone] * (ABNORMAL) Basic Metabolic Panel (07/18/2025 6:47 AM EDT) Sodium 141 135 - 145 mmol/L [facility] Potassium 4.6 3.3 - 5.1 mmol/L [facility] Chloride 105 96 - 108 mmol/L [facility] Carbon Dioxide 30(H) 22 - 29 mmol/L [facility] Anion Gap 11(L) 12 - 20 [facility] Urea Nitrogen (BUN) 25(H) 9 - 16 mg/dL [facility] Creatinine, Serum 0.96 0.5 - 1.4 mg/dL [facility] Creatinine Clr Calc Pharmacy 50.3 [facility] Comment:Provided height and weight: 160.02 cm,94.9 kg.eGFR (calculated from the MDRD study equation) and eCrCl(calculated from the Cockcroft-Gault equation) are based ondifferent parameters and may not yield comparable results.If eCrCl result is absurd, please check patient'sheight/weight. Estimated Glomerular Filt Rate 56 [facility] Comment:Chronic Kidney Disea se: Estimated GFR < 60 mL/min/1.97a5Eujsqq Kidney Disease: Estimated GFR < 15 mL/min/1.73m2 Glucose 101 60 - 115 mg/dL [facility] Calcium 8.8 8.4 - 10.2 mg/dL [facility] 07/18/2025 6:47 AM EDT 07/18/2025 6:50 AM EDT us Generic External Data Provider LAB BLOOD ORDERAB LES Final Result [facility] [address] [place] [address] [phone] * (ABNORMAL) Urinalysis, Complete, with Reflex to Culture (05/04/2025 11:33 PM EDT) Color Urine Yellow [facility] Appearance Urine Clear [facility] PH 5.5 5.0 - 9.0 [facility] Glucose Urine UA Negative Negative mg/dL [facility] Urine Blood Negative Negative [facility] Specific Ponce - Urine 1.015 1.005 - 1.025 [facility] Urine Protein Negative Neg-Trace mg/dL [facility] Urine Ketones Negative Negative mg/dL [facility] Nitrite Urine Negative Negative [facility] Leukocyte Esterase Urine Moderate (2+)(A) Negative [facility] RBC Urine 0-2 0 - 2 /HPF [facility] Urine WBC 21-50(A) 0 - 5 /HPF [facility] Urine Squamous Epithelial Cell 0-2 0 - 2 /HPF [facility] Urine Bacteria None Seen None Seen [facility] Hyaline Casts, Urine 0-2 0 - 2 /LPF [facility] 05/04/2025 11:3 3 PM EDT 05/04/2025 11:36 PM EDT Narrative [facility] - 05/04/2025 11:41 PM EDT Urine, Clean Catch us Generic External Data Provider LAB URINE ORDERAB LES Final Result [facility] [address] [place] [address] [phone] * Drug Monitoring, Panel 1, Screen, Urine (05/04/2025 11:33 PM EDT) Opiate Screen Urine Not Detected Not Detect [facility] Comment:Opiate cut-off is 30 0 ng/mL.Positive results are unconfirmed and should not be used fornon-medical purposes. Barbiturates, Urine Not Detected Not Detect [facility] Comment:Barbiturate cut-off is 200 ng/mL.Positive results are unconfirmed and should not be used fornon-medical purposes. Phencyclidine Screen Urine Not Detected Not Detect [facility] Comment:Phencyclidine cut-of f is 25 ng/mL.Positive results are unconfirmed and should not be used fornon-medical purposes. Amphetamine Screen Urine Not Detected Not Detect [facility] Comment:Amphetamine cut-off is 1000 ng/mL.Positive results are unconfirmed and should not be used fornon-medical purposes. Benzodiazepines Screen Urine Not Detected Not Detect [facility] Comment:Benzodiazepine cut-o ff is 200 ng/mL.Positive results are unconfirmed and should not be used fornon-medical purposes. Cocaine Screen Urine Not Detected Not Detect [facility] Comment:Cocaine cut-off is 3 00 ng/mL.Positive results are unconfirmed and should not be used fornon-medical purposes. Cannabinoid Screen Urine Not Detected Not Detect [facility] Comment:Cannabinoid cut-off is 50 ng/mL.Positive results are unconfirmed and should not be used fornon-medical purposes. Methadone Screen, Urine Not Detected Not Detect ng/mL [facility] Comment:Methadone cut-off is 300 ng/mL.Positive results are unconfirmed and should not be used fornon-medical purposes. FENTANYL URINE Not Detected Not Detect [facility] Comment:Fentanyl cut-off is 1 ng/mL.Positive results are unconfirmed and should not be used fornon-medical purposes. Oxycodone Urine Screen Not Detected Not Detect ng/mL [facility] Comment:Oxycodone cut-off is 100 ng/mL.Positive results are unconfirmed and should not be used fornon-medical purposes. Buprenorphine Screen Not Detected Not Detect ng/mL [facility] Comment:Buprenorphine cut-of f is 5 ng/mL.Positive results are unconfirmed and should not be used fornon-medical purposes. 05/04/2025 11:3 3 PM EDT 05/04/2025 11:36 PM EDT us Generic External Data Provider LAB URINE ORDERAB LES Final Result Performing Organization Address City/State/[facility] Co de Phone Number [facility] [address] [place] [phone] * CT Sinus Facial Bones w/o Contrast (05/04/2025 11:25 PM EDT) Anatomical Region Laterality Modality Computed Tomogra phy 05/04/2025 11:2 5 PM EDT Narrative 05/04/2025 11:27 PM EDT [address] [address] [address] Scan Report Signed Patient: Noreen Wing MR#: [id number] : 1945 Acct:[id number] Age/Sex: 79 / F ADM Date: 05/04/25 Loc: HO.ED Attending Dr: Ordering Physician: Marta Briscoe MD Date of Service: 05/04/25 Procedure(s): CT facial bones wo IV con Accession Number(s): [id number] cc: Name,Nitin PIKE; Marta Briscoe MD Report Number: [id number]: Total DLP = 1435.00 mGy-cm CLINICAL HISTORY: [...] in OV> 05/04/252326 DD/ 24 TD/TT: 05/04/252324 Infrastructure Engineer: Procedure Note Donotuseinterpreter, Image - 05/04/[address] [place] [address] [address] Scan Report Signed Patient: Noreen Wing#: [id number] : 1945cct:[id number] Age/Sex: 79 / FADM Date: 05/04/25 Loc: HO.ED Attending Dr: Ordering Physician: Marta Briscoe MD Date of Service: 05/04/25 Procedure(s): CT facial bones wo IV con Accession Number(s): [id number] cc: NameNitin MD; Marta Briscoe MD Report Number: [id number]: Total DLP = 1435.00 mGy-cm CLINICAL HISTORY: [...] in OV> 05/04/252326 DD/ 24 TD/TT: 05/04/252324 Infrastructure Engineer: [facility] External Provider IMG CT PROCEDURES Final Result * CT Head w/o Contrast (05/04/2025 11:24 PM EDT) Anatomical Region Laterality Modality Head, Neck Computed Tomogra phy 05/04/2025 11:2 4 PM EDT Narrative 05/04/2025 11:25 PM EDT [place] [address] CT Scan Report Signed Patient: Noreen Wing MR#: [id number] : 1945 Acct:[id number] Age/Sex: 79 / F ADM Date: 05/04/25 Loc: HO.ED Attending Dr: Ordering Physician: Marta Briscoe MD Date of Service: 05/04/25 Procedure(s): CT head/brain wo IV con Accession Number(s): [id number] cc: Name,Nitin PIKE; Marta Briscoe MD Report Number: [id number]: Total DLP = 1435.00 mGy-cm CLINICAL HISTORY: [...] in OV> 05/04/252324 DD/ 23 TD/TT: 05/04/252323 Infrastructure Engineer: Procedure Note Donotuseinterpreter, Image - 05/04/[address] [place] [address] [address] Scan Report Signed Patient: Noreen WingMR#: [id number] : 1945cct:[id number] Age/Sex: 79 / FADM Date: 05/04/25 Loc: HO.ED Attending Dr: Ordering Physician: Marta Briscoe MD Date of Service: 05/04/25 Procedure(s): CT head/brain wo IV con Accession Number(s): [id number] cc: Name,Nitin PIKE; Marta Briscoe MD Report Number: [id number]: Total DLP = 1435.00 mGy-cm CLINICAL HISTORY: [...] in OV> 05/04/252324 DD/ 23 TD/TT: 05/04/252323 Infrastructure Engineer: us [facility] External Provider IMG CT PROCEDURES Final Result * CT Cervical Spine w/o Contrast (05/04/2025 11:21 PM EDT) Anatomical Region Laterality Modality Spine, C-spine Computed Tomogra phy 05/04/2025 11:2 1 PM EDT Narrative 05/04/2025 11:23 PM EDT [place] [address] CT Scan Report Signed Patient: Noreen Wing MR#: [id number] : 1945 Acct:[id number] Age/Sex: 79 / F ADM Date: 05/04/25 Loc: HO.ED Attending Dr: Ordering Physician: Marta Briscoe MD Date of Service: 05/04/25 Procedure(s): CT cervical spine wo IV con Accession Number(s): [id number] cc: Name,Nitin PIKE; Marta Briscoe MD Report Number: [id number]: Total DLP = 1434.00 mGy-cm CLINICAL HISTORY: [...] in OV> 05/04/252321 DD/ 20 TD/TT: 05/04/252320 Infrastructure Engineer: Procedure Note Donotuseinterpreter, Image - 05/04/[address] [address] [address] Scan Report Signed Patient: Jennifer Wing#: [id number] : 3Acct:[id number] Age/Sex: 79 / FADM Date: 05/04/25 Loc: HO.ED Attending Dr: Ordering Physician: Marta Briscoe MD Date of Service: 05/04/25 Procedure(s): CT cervical spine wo IV con Accession Number(s): [id number] cc: Name,Nitin PIKE; Marta Briscoe MD Report Number: [id number]: Total DLP = 1434.00 mGy-cm CLINICAL HISTORY: [...] in OV> 05/04/252321 DD/ 20 TD/TT: 05/04/252320 Infrastructure Engineer: [facility] External Provider IMG CT PROCEDURES Final Result * Culture, Urine, Routine (05/04/2025 12:00 AM EDT) Urine Urine specimen obtained by clean catch procedure / Unknown 05/04/2025 05/04/2025 Comment:UACC Narrative [facility] - 05/06/2025 1:19 PM EDT Strep agalactiae (Grp B) Quant 10,000 to 50,000 cfu/mL Susc N/A Susceptibility not routinely performed on this isolate. Specimen Source: Urine clean catch us Generic External Data Provider LAB MICROBIOLOGY - GENERAL ORDERABLES Final Result [facility] [address] [place] [phone] * POCT HGB A1C (01/10/2025 11:02 AM EST) Hemoglobin A1C 5.1 4.0 - 6.0 % QC Media Lot # [id number] Lot# Expiration Date [id number] Blood 01/10/2025 11:0 2 AM EST Nitin Name POINT OF CARE TEST ENTER/EDIT [...] factors. LDL-C is now calculated using the Jack-Gordy calculation, which is a validated novel method providing better accuracy than the Friedewald equation in the estimation of LDL-C. Jack RAYO et al. JITENDRA. 2013;310(19): 7730-8992 (http://education.Inaura/faq/FZJ026) Non-HDL Cholesterol 88 <130 mg/dL (calc) CONVERTED [...] Most Recently Relevant to Health Maintenance Insurance [employer] (O D-SNP) [place] [id number] Care Teams Instructional Technology Facilitator Relationship Specialty Start Date End Date Name, MD Nitin [address] [place] [address] PCP - General Family Medicine 08/26/17 [facility] 09/01/24
--- OUTSIDE RECORDS SUMMARY | 2025-07-24 02:32 | XMS_ITS | Encounter Summary ---
Author Organization [employer] Address [address] [facility] [address] [place] [address] Care Team Providers Care Professor Of Biostatistics Name Role Phone Name, Nitin PIKE Primary Care Provider Encounter Details Date Type Department Care Team ([facility] st Contact Info) Description 05/26/2023 Orders Only [facility] [address] [place] [address] Noreen Fox MD [address] [place] [address] Social History Tobacco Use Types Packs/Day Years [...] Description 08/09/2025 11:15 AM EDT Office Visit [facility] [address] [place] [address] Name, MD Nitin [address] [place] [address] documented as of this encounter Visit Diagnoses Not on filedocumented in this encounter Care Teams Professor Of Biostatistics Relationship Specialty Start Date End Date Name, MD Nitin [address] [place] [address] PCP - General Family Medicine 08/26/17 [facility] 09/01/24 documented as of this encounter
--- OUTSIDE RECORDS SUMMARY | 2025-07-24 02:32 | XMS_ITS | Encounter Summary ---
Author Organization [employer] Address [address] [facility] [address] [place] [address] Care Team Providers Care Relocation Manager Name Role Phone Name, Nitin PIKE Primary Care Provider [phone] Reason for Visit * Reason Onset Date Comments Verbal Orders 12/15/2023 Encounter Details Date Type Department Care Team ([facility] st Contact Info) Description 12/15/2023 Telephone [facility] [address] [place], [place] [phone] Name, MD Nitin [address] [place] [address] Verbal Orders Social History Tobacco Use Types [...] 12:03 PM EST Tc from [employer] with [email or web address] requesting verbal order to see pt 2 times a week for 4 weeks for Occupational Therapy, please contact [employer] at [phone] documented in this encounter Plan of Treatment Upcoming Encounters Date Type Department Care Team (Late st Contact Info) Description 08/09/2025 11:15 AM EDT Office Visit [facility] [address] [place] [address] Name, MD Nitin [address] [place] [address] documented as of this encounter Visit Diagnoses Not on filedocumented in this encounter Additional Health Concerns Assessment Noted Time PHQ-9 Depression Total Score: 12 023 9:37 AM EDT documented as of this encounter Care Teams Relocation Manager Relationship Specialty Start Date End Date NameNitin MD [address] [place] [address] PCP - General Family Medicine 08/26/17 [facility] 09/01/24 documented as of this encounter
--- OUTSIDE RECORDS SUMMARY | 2025-07-24 02:32 | XMS_ITS | Encounter Summary ---
Author Organization [employer] Address [address] [facility] [address] [place] [address] Care Team Providers Care Banquet Manager Name Role Phone Name, Nitin PIKE Primary Care Provider [phone] Reason for Visit * Reason Comments Med Refill Encounter Details Date Type Department Care Team (Late st Contact Info) Description 08/16/[address] [facility] [address] [place], [place] [phone] Name, MD Nitin [address] [place] [address] Heartburn Social History Tobacco Use Types Packs/Day [...] EDT Office Visit [facility] [address] [place] [phone] NameNitin MD [address] [place] [address] documented as of this encounter Visit Diagnoses Diagnosis Heartburn documented in this encounter Additional Health Concerns Assessment Noted Time PHQ-9 Depression Total Score: 6 02/13/20 24 9:14 AM EDT documented as of this encounter Care Teams Banquet Manager Relationship Specialty Start Date End Date NameNitin MD [address] [place] [address] PCP - General Family Medicine 08/26/17 [facility] 09/01/24 documented as of this encounter
--- OUTSIDE RECORDS SUMMARY | 2025-07-24 02:32 | XMS_ITS | Encounter Summary ---
Author Organization [employer] Address [address] [facility] [address] [place] [address] Care Team Providers Care Traffic Representative Name Role Phone Name, Nitin PIKE Primary Care Provider [phone] Reason for Visit * Reason Comments Med Refill Encounter Details Date Type Department Care Team ([facility] st Contact Info) Description 06/28/[address] [facility] [address] [place], [place] [phone] Mel Anguiano FNP [address] [place] [address] Social History Tobacco Use Types Packs/Day Years [...] 08/09/2025 11:15 AM EDT Office Visit [facility] [address] [place] [address] Name, MD Nitin [address] [place] [address] documented as of this encounter Visit Diagnoses Not on filedocumented in this encounter Additional Health Concerns Assessment Noted Time PHQ-9 Depression Total Score: 6 02/13/20 24 9:14 AM EDT documented as of this encounter Care Teams Traffic Representative Relationship Specialty Start Date End Date Name, MD Nitin [address] [place] [address] PCP - General Family Medicine 08/26/17 [facility] 09/01/24 documented as of this encounter
--- OUTSIDE RECORDS SUMMARY | 2025-07-24 02:32 | XMS_ITS | Encounter Summary ---
Author Organization [employer] Address 75 [facility] [address] [place] [address] Care Team Providers Care Bridge Contractor Name Role Phone Name, Nitin PIKE Primary Care Provider [phone] Reason for Visit * Reason Comments Med Refill Encounter Details Date Type Department Care Team ([facility] st Contact Info) Description 04/01/2024 Refill [facility] [address] [place], [place] [phone] Name, MD Nitin [address] [place] [address] Rash Social History Tobacco Use Types Packs/Day [...] Office Visit [facility] [address] [place] [phone] Name, MD Nitin [address] [place] [address] documented as of this encounter Visit Diagnoses Diagnosis Rash Rash and other nonspecific skin eruption documented in this encounter Additional Health Concerns Assessment Noted Time PHQ-9 Depression Total Score: 6 02/13/20 24 9:14 AM EDT documented as of this encounter Care Teams Bridge Contractor Relationship Specialty Start Date End Date NameNitin MD [address] [place] [phone] PCP - General Family Medicine 08/26/17 [facility] 09/01/24 documented as of this encounter
--- OUTSIDE RECORDS SUMMARY | 2025-07-24 02:32 | XMS_ITS | Encounter Summary ---
Author Organization [employer] Address 75 [facility] 7[address] [place] [address] Care Team Providers Care Gut Dropper Name Role Phone Name, Nitin PIKE Primary Care Provider [phone] Reason for Visit * Reason Onset Date Comments FYI 01/21/2024 ER Follow-up 01/21/2024 Encounter Details Date Type Department Care Team ([facility] st Contact Info) Description 01/21/2024 Telephone [facility] MEDICINE [address] [place], [place] [phone] Name, MD Nitin [address] [place] [address] FYI; ER Follow-up Social History Tobacco Use [...] - 01/21/2024 1:54 PM EDT Message from [facility] ED noted. [facility] note sent to medical records. PCP does not rx Trazodone. Pt to f/u with psych prescriber. Pt is scheduled for f/u with pcp 02/13/24. * Telephone Encounter - Janette Huitron - 01/21/2024 9:45 AM EDT Tc from [facility] with [facility] ED calling in regards to pt. States pt was seen today for anxiety and is requesting trazodone. Will discharge pt with no medication change. Would also like to advise provider, pt was seen at [facility] on 01/17 for anxiety/insomnia as well documented in this encounter Plan of Treatment Upcoming Encounters Date Type Department Care Team (Late st Contact Info) Description 08/09/2025 11:15 AM EDT Office Visit [facility] MEDICINE [address] [place] [address] Name, MD Nitin [address] [place] [address] documented as of this encounter Visit Diagnoses Not on filedocumented in this encounter Additional Health Concerns Assessment Noted Time PHQ-9 Depression Total Score: 12 023 9:37 AM EDT documented as of this encounter Care Teams Gut Dropper Relationship Specialty Start Date End Date Name, MD Nitin [address] [place] [address] PCP - General Family Medicine 08/26/17 [facility] 09/01/24 documented as of this encounter
--- OUTSIDE RECORDS SUMMARY | 2025-07-24 02:32 | XMS_ITS | Encounter Summary ---
Author Organization [employer] Address 75 [facility] 7t [place] [address] Care Team Providers Care General Service Technician Name Role Phone Name, Nitin PIKE Primary Care Provider Encounter Details Date Type Department Care Team ([facility] Contact Info) Description 08/08/2023 Telephone [facility] MEDICINE [address] [place] [address] [phone] Name, MD Nitin [address] [place] [address] [phone] Social History Tobacco Use Types Packs/Day Years [...] 08/09/2025 11:15 AM EDT Office Visit [facility] [address] [place] [address] [phone] NameNitin MD [address] [place] [address] [phone] documented as of this encounter Visit Diagnoses Not on filedocumented in this encounter Additional Health Concerns Assessment Noted Time PHQ-9 Depression Total Score: 12 023 9:37 AM EDT documented as of this encounter Care Teams General Service Technician Relationship Specialty Start Date End Date Name, MD Nitin [address] [place] [address] PCP - General Family Medicine 08/26/17 [facility] 09/01/24 documented as of this encounter
--- OUTSIDE RECORDS SUMMARY | 2025-07-24 02:32 | XMS_ITS | Encounter Summary ---
Author Organization [employer] Address 75 [facility] [address] [place] [address] Care Team Providers Care Laborer Mine Name Role Phone Name, Nitin PIKE Primary Care Provider [phone] Reason for Visit * Reason Onset Date Comments triage 12/18/2022 Encounter Details Date Type Department Care Team ([facility] st Contact Info) Description 12/18/[address] [facility] MEDICINE 230 [place], [place] [phone] Name, MD Nitin [address] [place] [address] triage Social History Tobacco Use Types Packs/Day [...] 12/18/2022 2:35 PM EST Called pt. Via [employer] instrument repair supervisor [phone] Eduardo. Pt. States that she has a [...] phone. Please reach out to pt. With Indonesian speaking another time to see what her [...] EDT Office Visit [facility] [address] [place] [phone] Name, MD Nitin [address] [place] [address] documented as of this encounter Visit Diagnoses Not on filedocumented in this encounter Care Teams Laborer Mine Relationship Specialty Start Date End Date Name, MD Nitin [address] [place] [phone] PCP - General Family Medicine 08/26/17 [facility] 09/01/24 documented as of this encounter
--- OUTSIDE RECORDS SUMMARY | 2025-07-24 02:32 | XMS_ITS | Encounter Summary ---
Author Organization [employer] Address 75 [facility] 7[address] [place] [address] Care Team Providers Care Coding File Clerk Name Role Phone Name, Nitin PIKE Primary Care Provider [phone] Reason for Visit * Reason Onset Date Comments Results 08/29/2023 Encounter Details Date Type Department Care Team ([facility] st Contact Info) Description 08/29/2023 Telephone [facility] MEDICINE 230 [place], [place] [phone] Name, MD Nitin 230 [place] [address] Results Social History Tobacco Use Types Packs/Day [...] to urine results. Please contact pt at [phone] (Ukrainian) documented in this encounter Plan of Treatment Upcoming Encounters Date Type Department Care Team (Late st Contact Info) Description 08/09/2025 11:15 AM EDT Office Visit [facility] [address] [place] [address] Name, MD Nitin [address] [place] [address] documented as of this encounter Visit Diagnoses Not on filedocumented in this encounter Additional Health Concerns Assessment Noted Time PHQ-9 Depression Total Score: 12 023 9:37 AM EDT documented as of this encounter Care Teams Coding File Clerk Relationship Specialty Start Date End Date NameNitin MD [address] [place] [phone] PCP - General Family Medicine 08/26/17 [facility] 09/01/24 documented as of this encounter
--- OUTSIDE RECORDS SUMMARY | 2025-07-24 02:32 | XMS_ITS | Encounter Summary ---
Author Organization [employer] Address 75 [facility] [address] [place] [address] Care Team Providers Care Drafter Tool Design Name Role Phone Name, Nitin PIKE Primary Care Provider [phone] Reason for Visit * Reason Onset Date Comments ER Follow-up 05/31/2024 Encounter Details Date Type Department Care Team ([facility] Contact Info) Description 05/31/2024 Telephone [facility] MEDICINE [address] [place], [place] [phone] Name, MD Nitin [address] [place] [address] ER Follow-up Social History Tobacco Use Types [...] 1:36 PM EDT T/C to Pat ([facility]) [phone] for below message, no answer. LVM to call back on [phone]. * Telephone Encounter - Melany Santos RN - 05/31/2024 1:32 PM EDT DAVID T/C to pt. Through [employer] id - [id number] for below message, pt. Had recent fall and ED visit at [facility]. RN will request GRACE piedra from [facility]. Pt. Is doing good, states I am tired andsleeping. Pt. Dose not has any question or concern right now. Pt. Already has HDF apt. Schedule on 06/10/2024. Pt. Advised to give call to [facility] if any questions or concerns. Pt. Verbally agreed and understood. Please review and advise if needed. * Telephone Encounter - Adithya Solorzano - 05/31/2024 12:50 PM EDT Patient calling to report ED visit on : Date: 05/26 Hospital: [facility] Seen for: Fall, Back Pain Pat stated pt is requesting a sooner apt with pcp due to recent ER visit. PT is also requesting order for PT services for to go along with [facility]. documented in this encounter Plan of Treatment Upcoming Encounters Date Type Department Care Team (Late st Contact Info) Description 08/09/2025 11:15 AM EDT Office Visit [facility] MEDICINE [address] [place] [address] Name, MD Nitin [address] [place] [address] documented as of this encounter Visit Diagnoses Not on filedocumented in this encounter Additional Health Concerns Assessment Noted Time PHQ-9 Depression Total Score: 6 02/13/20 24 9:14 AM EDT documented as of this encounter Care Teams Drafter Tool Design Relationship Specialty Start Date End Date Name, MD Nitin [address] [place] [phone] PCP - General Family Medicine 08/26/17 [facility] 09/01/24 documented as of this encounter
--- OUTSIDE RECORDS SUMMARY | 2025-07-24 02:32 | XMS_ITS | Encounter Summary ---
Author Organization [employer] Address 75 [facility] [address] [place] [address] Care Team Providers Care Public Health Aides Teacher Name Role Phone Name, Nitin PIKE Primary Care Provider [phone] Encounter Details Date Type Department Care Team ([facility] Contact Info) Description 01/06/2023 Orders Only [facility] [address] [place], [place] [phone] Lisha Kelly LPN Social History Tobacco Use [...] Description 08/09/2025 11:15 AM EDT Office Visit [facility] 230 [place], [place] [phone] Name, MD Nitin [address] [place] [address] documented as of this encounter Visit Diagnoses Not on filedocumented in this encounter Care Teams Public Health Aides Teacher Relationship Specialty Start Date End Date Name, MD Nitin [address] [place] [address] PCP - General Family Medicine 08/26/17 [facility] 09/01/24 documented as of this encounter
--- OUTSIDE RECORDS SUMMARY | 2025-07-24 02:32 | XMS_ITS | Encounter Summary ---
Author Organization [employer] Address 75 [facility] [address] [place] [address] Care Team Providers Care Government Affairs Manager Name Role Phone Name, Nitin PIKE Primary Care Provider [phone] Reason for Visit * Reason Comments Med Refill Encounter Details Date Type Department Care Team (Late st Contact Info) Description 01/09/2025 Refill [facility] 230 [place], [place] [phone] Name, MD Nitin [address] [place] [address] Hypertension, unspecified type Social History Tobacco Use [...] Office Visit [facility] MEDICINE [address] [place] [phone] NameNitin MD [address] [place] [address] documented as of this encounter Visit Diagnoses Diagnosis Hypertension, unspecified type documented in this encounter Additional Health Concerns Assessment Noted Time PHQ-9 Depression Total Score: 6 02/13/20 9:14 AM EDT documented as of this encounter Care Teams Government Affairs Manager Relationship Specialty Start Date End Date NameNitin MD [address] [place] [address] PCP - General Family Medicine 08/26/17 [facility] 09/01/24 documented as of this encounter
[2025-07-24 02:39] LABS: MANUAL DIFF FLAG NO
[2025-07-24 02:42] VITALS: PULSE 84
[2025-07-24 02:53] LABS: Hematocrit 33.8 % (37.0-47.0); Hemoglobin 11.1 g/dl (12.0-16.0); Imm Gran Abs Auto 0.02 X10*3/uL (0.00-0.03); Imm Gran Pct Auto 0.3 % (0.0-0.4); Lymphocytes Absolute Auto 2.0 X10*3/uL (1.2-4.9); Mean Corpuscular HGB Conc 32.8 g/dl (31.0-35.0); Mean Corpuscular Hemoglobin 28.0 pg (27.0-33.0); Mean Corpuscular Volume 85.1 fL (80.0-98.0); NRBC Abs Auto 0.000 X10*3/uL (0.0-0.012); NRBC Pct Auto 0.0 /100WBC (0.0-0.2); Platelet Count 276 X10*3/uL (160-400); Red Blood Count 3.97 X10*6/uL (4.20-5.50); White Blood Count 6.6 X10*3/uL (4.8-10.8)
[2025-07-24 02:55] LABS: Alanine Aminotransferase 19 U/L (0-31); Albumin Level 4.2 g/dL (3.5-5.0); Alkaline Phosphatase 83 U/L (39-117); Anion Gap 12 (12-20); Aspartate Amino Transferase 30 U/L (5-31); Blood Urea Nitrogen 21 mg/dL (9-16); Calcium 8.9 mg/dL (8.4-10.2); Carbon Dioxide 27 mmol/L (22-29); Chloride 103 mmol/L (96-108); Creatinine Clr Calc Pharmacy 41.7; Estimated Glomerular Filt Rate 52; Potassium 4.4 mmol/L (3.3-5.1); Sodium 138 mmol/L (135-145); Total Protein 7.8 g/dL (6.5-8.0)
[2025-07-24 03:03] LABS: Troponin-I High Sensitivity < 2.7 ng/L (<3.5-17.0)
--- NOTE | 2025-07-24 03:14 | ED.CHESTPAIN ---
HPI - Chest Pain General Chief Complaint: Chest Pain Stated Complaint: Chestpain Time Seen by Provider: 07/24/25 02:55 Source: patient, EMS, old records reviewed and help desk support specialist Mode of arrival: EMS Limitations: no limitations History of Present Illness ED Provider: DR. Henriquez HPI narrative: 79-year-old female came in for evaluation of left-sided chest pain started 2 days ago pain was described as localized to the left side of the chest under the left breast, no radiation, pain worsening with movement, no coughing, no shortness of breath , no fever, no chills, no recent travel, no lower extremity swelling or tenderness. Related Data Home Medications ?Medication ?Instructions ?Recorded ?Confirmed mirtazapine 45 mg tablet 45 mg PO BEDTIME 08/09/20 03/16/25 omeprazole 20 mg tablet,delayed 20 mg PO DAILY@0630 08/09/20 03/16/25 release aspirin 81 mg tablet,delayed 81 mg PO QAM 01/28/24 03/16/25 release bisacodyl 5 mg tablet,delayed 5 mg PO DAILY PRN constipation 01/28/24 03/16/25 release diphenhydramine HCl 25 mg tablet 25 mg PO BEDTIME PRN itch 01/28/24 03/16/25 (Lou-Dryl) ferrous sulfate 325 mg (65 mg 325 mg PO DAILY 01/28/24 03/16/25 iron) tablet (FeroSul) melatonin 10 mg tablet,extended 10 mg PO BEDTIME PRN Insomnia 01/28/24 03/16/25 release multivitamin 1 tab PO QAM 01/28/24 03/16/25 rosuvastatin 20 mg tablet 20 mg PO BEDTIME 01/28/24 03/16/25 trazodone 50 mg tablet 50 mg PO BEDTIME 01/28/24 03/16/25 amlodipine 10 mg tablet 10 mg PO DAILY 02/09/24 03/16/25 acetaminophen 500 mg tablet 500 mg PO Q8H PRN pain 08/09/24 03/16/25 ipratropium bromide 21 mcg (0.03 2 spray intranasal BID 08/09/24 03/16/25 %) nasal spray zolpidem 5 mg tablet 5 mg PO BEDTIME PRN Insomnia 08/09/24 03/16/25 cholecalciferol (vitamin D3) 25 25 mcg PO DAILY 08/20/24 03/16/25 mcg (1,000 unit) tablet meclizine 25 mg tablet 25 mg PO DAILY PRN 09/29/24 03/16/25 sertraline 100 mg tablet 100 mg PO DAILY 03/16/25 03/16/25 Previous Rx's ?Medication ?Instructions ?Recorded metoprolol succinate 50 mg 50 mg PO DAILY #90 tabs 09/28/20 tablet,extended release 24 hr fluticasone propionate 50 2 spray intranasal DAILY #16 grams 09/16/23 mcg/actuation nasal spray,suspension (Flonase Allergy Relief) ondansetron 4 mg disintegrating 4 mg PO Q6H PRN nausea and 04/28/24 tablet vomiting #10 tabs hydroxyzine HCl 25 mg tablet 25 mg PO TID PRN anxiety #6 tabs 08/07/24 clonazepam 0.5 mg tablet 0.5 mg PO TID #180 tabs 08/10/24 gabapentin 100 mg capsule 100 mg PO TID #180 caps 08/10/24 hydroxyzine HCl 25 mg tablet 25 mg PO TID PRN anxiety #20 tabs 09/09/24 miconazole nitrate 2 % vaginal 1 appful vaginal BEDTIME 7 days 10/09/24 cream (Monistat 7) #45 grams nitrofurantoin 100 mg PO Q12H 3 days #6 caps 10/09/24 monohydrate/macrocrystals 100 mg capsule (Macrobid) miconazole nitrate 2 % topical 1 appl topical BID #28 grams 01/01/25 cream ofloxacin 0.3 % ear drops 10 drp otic (ears) DAILY 7 days #5 02/01/25 mL docusate sodium 100 mg capsule 200 mg (2 x 100 mg) PO BID #30 caps 02/07/25 (Col-Rite) polyethylene glycol 3350 17 17 g PO Q8H #238 grams 02/07/25 gram/dose oral powder (ClearLax) white petrolatum 41 % topical 1 appl topical BID PRN irritated 02/07/25 ointment (Advanced Healing skin #50 grams (Petrolatum)) azithromycin 250 mg tablet 250 mg PO DAILY 4 days #4 tabs 02/14/25 (Zithromax) docusate sodium 100 mg capsule 200 mg (2 x 100 mg) PO BID #20 caps 02/24/25 (Colace) polyethylene glycol 3350 17 17 g PO BID #119 grams 02/24/25 gram/dose oral powder (Miralax) simethicone 180 mg capsule 180 mg PO BID PRN abdominal 03/03/25 distention #14 caps clonazepam 0.5 mg tablet 0.5 mg PO DAILY #4 tabs 04/17/25 acetaminophen 500 mg tablet 500 mg PO Q6H PRN fever or pain 05/04/25 #30 tabs meclizine 12.5 mg tablet 12.5 mg PO TID PRN vertigo 5 days 07/18/25 #20 tabs valsartan 160 mg tablet 160 mg PO QPM #90 tabs 07/18/25 ibuprofen 200 mg tablet 200 mg PO Q6H PRN pain #20 tabs 07/24/25 Allergies Allergy/AdvReac Type Severity Reaction Status Date / Time penicillin G (Penicillin G) Allergy Severe ITCHY/RASH Verified 07/24/25 02:27 Sulfa (Sulfonamide Allergy Severe ITCHY,RASH, Verified 07/24/25 02:27 Antibiotics) (Sulfa rash (Sulfonamides)) trimethoprim (From Bactrim) Allergy Severe HIVES Verified 07/24/25 02:27 Penicillins Allergy Intermediate Hives Verified 07/24/25 02:27 sulfamethoxazole (From Allergy Mild Hives Verified 07/24/25 02:27 Bactrim) Review of Systems Review of Systems: All other systems are reviewed and are negative Constitutional: Reports as per HPI and Reports no additional constitutional complaints Eyes: Reports as per HPI and Reports no additional eye complaints Reports system reviewed and no additional complaints, except as documented Cardiovascular: Reports as per HPI and Reports no additional cardiovascular complaints Respiratory: Reports as per HPI and Reports no additional respiratory complaints Gastrointestinal: Reports as per HPI and Reports no additional gastrointestinal complaints Genitourinary: Reports no additional female genitourinary complaints Musculoskeletal: Reports no additional musculoskeletal complaints Skin/Breast: Reports system reviewed and no additional complaints, except as docu Psychiatric: Reports no additional psychiatric complaints Endocrine: Reports no additional endocrine complaints Hematologic/Lymphatic: Reports no additional hematologic/lymphatic complaints Allergic/Immunologic: Reports no additional allergic/immunologic complaints Reports system reviewed and no additional complaints, except as documented and Reports Abnormal speech present PMFSH Past Medical History 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 or 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 (seed buyer) Unable to assess alcohol history related to: Unknown Alcohol intake: never Patient Tobacco Use Status: Never used Tobacco Smoked in Last 30 Days: No Use of substances other than those prescribed or required for medical reasons: No Advance Directives: Yes Advance Directives on File: Yes Advance Directives Date on File: 01/28/24 Do you have a plan to hurt others: No Plan service: No Physical Exam Vital Signs: Vital Signs: Last Vital Signs Temp 97.5 F 07/24/25 02:22 Pulse 79 07/24/25 02:22 Resp 20 07/24/25 02:22 BP 134/65 07/24/25 02:22 Pulse Ox 97 07/24/25 02:22 O2 Del Method Room Air 07/24/25 02:22 BMI result Body Mass Index 36.5 Vital signs have been reviewed and appear to be correct. Blood pressure elevated. Heart rate normal. Respiratory rate normal. Temperature normal. Oxygen saturation normal. Appearance: Alert. Oriented X3. No acute distress. Head: Normal external exam. Normocephalic. Atraumatic. No Gomes signs noted. No raccoon eyes noted Eyes: PERRLA. EOMI. Conjunctiva and sclera normal. Eyelids normal. ENT: TM's Normal. Pharynx normal. Uvula midline. Moist mucous membranes. No trismus noted. No drooling noted. No muffled voice noted. Neck: Normal inspection. Neck supple. FROM. No adenopathy. Thyroid Normal. No meningeal signs. No neck mass noted. CVS: Normal heart rate and rhythm. Heart sound normal. No murmurs noted. Pulses normal throughout. Respiratory: No respiratory distress. Painless inspiration. Breath sounds normal. No wheezes/rales/rhonchi noted. Reproducible tenderness to the left chest wall More focused on under the left breast., no step-off, no deformity. No accessory muscle usage noted or decreased air movement noted. Abdomen: Soft and nontender. Bowel sounds normal in all 4 quadrants. No distention noted. No organomegaly noted. No visible injury noted. Back: No CVA tenderness. Full range of motion noted. Skin: Skin warm and dry. Normal skin color. Normal skin turgor. No rashes/lesions/lacerations noted. Extremities: No lower extremity edema. Extremities exhibit normal range of motion. Extremities nontender. Neuro: Oriented X 3. Cranial nerve exam: II-XII are grossly intact No motor deficit. No sensory deficit. Reflexes normal. Course Reevaluation(s) Reevaluation #1: Chest wall pain x2 days, no risk for DVT/ PE with negative D-dimer, EKG/ troponin is negative, rib x-rays shows no rib fracture, no underlying lung disease or pneumonia. Pain is reproducible and improved with ibuprofen given in the ED. Time: 06:30 Medical Decision Making Differential Diagnosis Differential Diagnoses: The differential diagnosis associated with the presentation includes ( ACS, pulmonary embolism, pneumonia, pneumothorax, pleural effusion, electrolyte derangement, severe anemia.) Admission/Observation Consideration of admission/observation: Escalation of care including admission/observation considered Lab Data MDM Lab Attestation statement: I reviewed the patient's lab results. 07/24/25 02:32 07/24/25 02:32 Labs: Lab Results 07/24/25 Range/Units 02:32 WBC 6.6 (4.8-10.8) X10*3/uL RBC 3.97 L (4.20-5.50) X10*6/uL Hgb 11.1 L (12.0-16.0) g/dl Hct 33.8 L (37.0-47.0) % MCV 85.1 (80.0-98.0) fL MCH 28.0 (27.0-33.0) pg MCHC 32.8 (31.0-35.0) g/dl RDW 13.8 (11.0-16.0) % Plt Count 276 (160-400) X10*3/uL MPV 9.0 L (9.4-12.3) fL Immature Gran % (Auto) 0.3 (0.0-0.4) % Neut % (Auto) 56.2 (45-73) % Lymph % (Auto) 30.5 (20-40) % [place] % (Auto) 10.7 (2-11) % Eos % (Auto) 1.5 (0-4) % Baso % (Auto) 0.8 (0-2) % Lymph # (Auto) 2.0 (1.2-4.9) X10*3/uL [place] # (Auto) 0.7 (0.1-1.2) X10*3/uL Eos # (Auto) 0.1 (0.0-0.4) X10*3/uL Baso # (Auto) 0.1 (0.0-0.2) X10*3/uL Abs Immat Gran (auto) 0.02 (0.00-0.03) X10*3/uL Absolute Neuts (auto) 3.7 (2.0-8.3) x10*3/uL Absolute Nucleated RBC 0.000 (0.0-0.012) X10*3/uL Nucleated RBC % (auto) 0.0 (0.0-0.2) /100WBC Sodium 138 (135-145) mmol/L Potassium 4.4 (3.3-5.1) mmol/L Chloride 103 (96-108) mmol/L Carbon Dioxide 27 (22-29) mmol/L Anion Gap 12 (12-20) BUN 21 H (9-16) mg/dL Creatinine 1.02 (0.5-1.4) mg/dL Estim Creat Clear Calc 41.7 Estimated GFR 52 Random Glucose 123 H (60-115) mg/dL Calcium 8.9 (8.4-10.2) mg/dL Total Bilirubin 0.3 (0.0-1.0) mg/dL AST 30 (5-31) U/L ALT 19 (0-31) U/L Alkaline Phosphatase 83 (39-117) U/L Troponin I High Sens < 2.7 (<3.5-17.0) ng/L Total Protein 7.8 (6.5-8.0) g/dL Albumin 4.2 (3.5-5.0) g/dL Independent Interpretation I performed an independent interpretation of an: EKG ( Normal sinus rhythm at 79 beats per minutes, normal intervals, no ST-T changes.) and Plain X-Ray ( No acute pathology.) Radiology Impression Discussion of test interpretation with radiology: I have reviewed the radiologist's reading. Discharge Plan Discharge Clinical Impression: Chest wall pain Patient Disposition: Home, Self-Care Instructions: Chest Wall Pain (ED) Prescriptions: New ibuprofen 200 mg tablet 200 mg PO Q6H PRN (Reason: pain) Qty: 20 0RF No Action metoprolol succinate 50 mg tablet extended release 24 hr 50 mg PO DAILY Qty: 90 2RF valsartan 160 mg tablet 160 mg PO QPM Qty: 90 1RF mirtazapine 45 mg Tablet 45 mg PO BEDTIME omeprazole 20 mg Tablet,Delayed Release (Dr/Ec) 20 mg PO DAILY@0630 fluticasone propionate [Flonase Allergy Relief] 50 mcg/actuation spray,suspension 2 spray intranasal DAILY Qty: 16 0RF Rx Instructions: administer into each nostril hydroxyzine HCl 25 mg tablet 25 mg PO TID PRN (Reason: anxiety) Qty: 6 0RF hydroxyzine HCl 25 mg tablet 25 mg PO TID PRN (Reason: anxiety) Qty: 20 0RF miconazole nitrate 2 % cream 1 appl topical BID Qty: 28 0RF azithromycin [Zithromax] 250 mg tablet 250 mg PO DAILY 4 Days Qty: 4 0RF Rx Instructions: start on day 2 of therapy clonazepam 0.5 mg tablet 0.5 mg PO DAILY Qty: 4 0RF trazodone 50 mg tablet 50 mg PO BEDTIME ferrous sulfate [FeroSul] 325 mg (65 mg iron) tablet 325 mg PO DAILY diphenhydramine HCl [Lou-Dryl] 25 mg tablet 25 mg PO BEDTIME PRN (Reason: itch) bisacodyl 5 mg tablet,delayed release (DR/EC) 5 mg PO DAILY PRN (Reason: constipation) rosuvastatin 20 mg tablet 20 mg PO BEDTIME aspirin 81 mg tablet,delayed release (DR/EC) 81 mg PO QAM multivitamin Tablet 1 tab PO QAM melatonin 10 mg tablet extended release 10 mg PO BEDTIME PRN (Reason: Insomnia) cholecalciferol (vitamin D3) 25 mcg (1,000 unit) tablet 25 mcg PO DAILY ondansetron 4 mg tablet,disintegrating 4 mg PO Q6H PRN (Reason: nausea and vomiting) Qty: 10 0RF acetaminophen 500 mg tablet 500 mg PO Q8H PRN (Reason: pain) zolpidem 5 mg tablet 5 mg PO BEDTIME PRN (Reason: Insomnia) ipratropium bromide 21 mcg (0.03 %) spray,non-aerosol 2 spray intranasal BID clonazepam 0.5 mg Tablet 0.5 mg PO TID Qty: 180 0RF gabapentin 100 mg Capsule 100 mg PO TID Qty: 180 0RF nitrofurantoin monohyd/m-cryst [Macrobid] 100 mg capsule 100 mg PO Q12H 3 Days Qty: 6 0RF Rx Instructions: must administer with a meal/food miconazole nitrate [Monistat 7] 2 % cream 1 appful vaginal BEDTIME 7 Days Qty: 45 0RF ofloxacin 0.3 % drops 10 drp otic (ears) DAILY 7 Days Qty: 5 0RF docusate sodium [Col-Rite] 100 mg capsule 200 mg PO BID Qty: 30 0RF polyethylene glycol 3350 [ClearLax] 17 gram/dose powder 17 g PO Q8H Qty: 238 0RF Advanced Healing (Petrolatum) 41 % ointment 1 appl topical BID PRN (Reason: irritated skin) Qty: 50 0RF docusate sodium [Colace] 100 mg capsule 200 mg PO BID Qty: 20 0RF polyethylene glycol 3350 [Miralax] 17 gram/dose powder 17 g PO BID Qty: 119 0RF simethicone 180 mg capsule 180 mg PO BID PRN (Reason: abdominal distention) Qty: 14 0RF acetaminophen 500 mg tablet 500 mg PO Q6H PRN (Reason: fever or pain) Qty: 30 0RF meclizine 12.5 mg tablet 12.5 mg PO TID PRN (Reason: vertigo) 5 Days Qty: 20 0RF sertraline 100 mg tablet 100 mg PO DAILY amlodipine 10 mg tablet 10 mg PO DAILY meclizine 25 mg tablet 25 mg PO DAILY PRN Print Language: [place]
[2025-07-24 03:34] LABS: D Dimer High Sensitivity 179 NG/ML
[2025-07-24 04:31] VITALS: BP 137/71; PULSE 70; RESP 15; TEMP 36.4; O2SAT 97
[2025-07-24 05:01] LABS: Troponin-I High Sensitivity < 2.7 ng/L (<3.5-17.0)
[2025-07-24 05:31] VITALS: BP 137/71; PULSE 70; RESP 15; TEMP 36.4; O2SAT 97
== END 2025-07-24 05:31 | disposition home or self-care (01) ==
PROVIDERS: Emergency Provider Emergency Medicine
DX: R07.89 Other chest pain (principal); R07.81 Pleurodynia; Z79.899 Other long term (current) drug therapy
CPT/HCPCS: 36415; 71101; 80053; 84484; 85025; 85379; 93005; 99283; 99285

== ENCOUNTER → 2025-07-24 02:30 | Outpatient (BNV) | payer OTHER, SELFPAY | PROVIDERS: Emergency Provider Emergency Medicine; Visit Provider Internal Medicine Cardiovascular Disease | DX: R07.89 Other chest pain (principal) | CPT/HCPCS: 93010 ==

== ENCOUNTER → 2025-07-24 03:12 | Outpatient (BNV) | payer OTHER, SELFPAY | PROVIDERS: Emergency Provider Emergency Medicine; Visit Provider Radiology Diagnostic Radiology | DX: R07.89 Other chest pain (principal) | CPT/HCPCS: 71101 ==

== ENCOUNTER 2025-07-26 08:14 | Emergency (ER) | payer OTHER, SELFPAY ==
--- NOTE | 2025-07-26 08:16 | ED_ITS ---
HPI - General Adult General Chief complaint: Dizziness Stated complaint: DIZZY W/SYNCOPE PER EMS Time Seen by Provider: 07/26/25 08:16 Source: patient, EMS and etl consultant (israeli) Mode of arrival: EMS Limitations: language barrier (israeli speaking) History of Present Illness ED Provider: JUDSON LINDSAY PA-C HPI narrative: 79 year old israeli speaking female with pmhx significant for anxiety, SVT, HTN, dementia, vertigo, stage 3 CKD presents to the ED today via EMS from [facility] for evaluation of dizziness. 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 Describes this as a room spinning sensation. She did not lose consciousness. She states a bystander standing next to her assisted her to a seat where the dizziness resolved. EMS was then contacted and patient was transported to ED. She tells me this dizzy spell felt like her typical vertigo. She reports running out of her meclizine prescription 3 days ago. Reports associated nausea without vomiting. She denies any assoctaed symptoms such as headache, vision changes, chest pain, N/V, palpitations, LE pain/swelling. She states her dizziness and nausea have completely resolved and has no complaints/ concerns at present. She is requesting to be medicated with her clonazepam as she was not able to pick her up prescriptions today. Related Data Home Medications ?Medication ?Instructions ?Recorded ?Confirmed mirtazapine 45 mg tablet 45 mg PO BEDTIME 08/09/20 omeprazole 20 mg tablet,delayed 20 mg PO DAILY@0630 03/16/25 release aspirin 81 mg tablet,delayed 81 mg PO QAM 01/28/2406/03 release bisacodyl 5 mg tablet,delayed 5 mg PO DAILY PRN consti pation 01/28/24 03/16/25 release diphenhydramine HCl 25 mg tablet 25 mg PO BEDTIME PRN itch 01/28/24 03/16/25 (Lou-Dryl) ferrous sulfate 325 mg (65 mg 325 mg PO DAILY 01/28/24 03/16/25 iron) tablet (FeroSul) melatonin 10 mg tablet,extended 10 mg PO BEDTIME PRN I nsomnia 01/28/24 03/16/25 release multivitamin 1 tab PO QAM 01/28/24 rosuvastatin 20 mg tablet 20 mg PO BEDTIME 01/28/24 trazodone 50 mg tablet 50 mg PO BEDTIME 01/28/24 amlodipine 10 mg tablet 10 mg PO DAILY 02/09/2406/03 acetaminophen 500 mg tablet 500 mg PO Q8H PRN pain 03/16/25 ipratropium bromide 21 mcg (0.03 2 spray intranasal BI D 08/09/24 03/16/25 %) nasal spray zolpidem 5 mg tablet 5 mg PO BEDTIME PRN Insomnia 08/09/24 03/16/25 cholecalciferol (vitamin D3) 25 25 mcg PO DAILY 03/16/25 mcg (1,000 unit) tablet meclizine 25 mg tablet 25 mg PO DAILY PRN 09/29/24 03/16/25 sertraline 100 mg tablet 100 mg PO DAILY 03/16/2506/03 Previous Rx's ?Medication ?Instructions ?Recorded metoprolol succinate 50 mg 50 mg PO DAILY #90 tabs tablet,extended release 24 hr fluticasone propionate 50 2 spray intranasal DAILY #16 grams 09/16/23 mcg/actuation nasal spray,suspension (Flonase Allergy Relief) ondansetron 4 mg disintegrating 4 mg PO Q6H PRN nausea and 04/28/24 tablet vomiting #10 tabs hydroxyzine HCl 25 mg tablet 25 mg PO TID PRN anxiety #6 tabs 08/07/24 clonazepam 0.5 mg tablet 0.5 mg PO TID #180 tabs 12/03 gabapentin 100 mg capsule 100 mg PO TID #180 caps 12/03 hydroxyzine HCl 25 mg tablet 25 mg PO TID PRN anxiety #20 tabs 09/09/24 miconazole nitrate 2 % vaginal 1 appful vaginal BEDTIM E 7 days 10/09/24 cream (Monistat 7) #45 grams nitrofurantoin 100 mg PO Q12H 3 days #6 cap s 10/09/24 monohydrate/macrocrystals 100 mg capsule (Macrobid) miconazole nitrate 2 % topical 1 appl topical BID #28 grams 02/22/25 cream ofloxacin 0.3 % ear drops 10 drp otic (ears) DAILY 7 d ays #5 02/01/ mL docusate sodium 100 mg capsule 200 mg (2 x 100 mg) PO BID #30 caps 02/07/25 (Col-Rite) polyethylene glycol 3350 17 17 g PO Q8H #238 grams gram/dose oral powder (ClearLax) white petrolatum 41 % topical 1 appl topical BID PRN i rritated 02/07/25 ointment (Advanced Healing skin #50 grams (Petrolatum)) azithromycin 250 mg tablet 250 mg PO DAILY 4 days #4 t abs 02/14/25 (Zithromax) docusate sodium 100 mg capsule 200 mg (2 x 100 mg) PO BID #20 caps 02/24/25 (Colace) polyethylene glycol 3350 17 17 g PO BID #119 grams gram/dose oral powder (Miralax) simethicone 180 mg capsule 180 mg PO BID PRN abdominal 03/03/25 distention #14 caps clonazepam 0.5 mg tablet 0.5 mg PO DAILY #4 tabs 07/04 acetaminophen 500 mg tablet 500 mg PO Q6H PRN fever or pain 05/04/25 #30 tabs meclizine 12.5 mg tablet 12.5 mg PO TID PRN vertigo 5 days 07/18/25 #20 tabs valsartan 160 mg tablet 160 mg PO QPM #90 tabs 07/18 ibuprofen 200 mg tablet 200 mg PO Q6H PRN pain #20 t abs 07/24/25 meclizine 12.5 mg tablet 12.5 mg PO TID PRN dizziness or 07/26/25 vertigo #30 tabs apixaban 5 mg tablet See Rx Instructions .Route 0 07/27/25 .COMPLEX #74 tabs Allergies Allergy/AdvReac Type Severity Reaction Status Date / Time penicillin G (Penicillin G) Allergy Severe ITCHY/RASH Verified 07/28/25 16:14 Sulfa (Sulfonamide Allergy Severe ITCHY,RASH, Verified 07/28/25 16:14 Antibiotics) (Sulfa rash (Sulfonamides)) trimethoprim (From Bactrim) Allergy Severe HIVES Verified 07/28/25 16:14 Penicillins Allergy Intermediate Hives Verified 07/28/25 16:14 sulfamethoxazole (From Allergy Mild Hives Verified 07/28/25 16:14 Bactrim) Review of Systems 2 Review of Systems: Yes all other systems are reviewed and are negative [facility] Past Medical History Attestation statement: The following information was validated with the patient. 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 or 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 ([employer]) Unable to assess alcohol history related to: Unknown Alcohol intake: never Patient Tobacco Use Status: Never used Tobacco Smoked in Last 30 Days: No Use of substances other than those prescribed or required for medical reasons: No Advance Directives: Yes Advance Directives on File: Yes Advance Directives Date on File: 01/28/24 service: No Physical Exam ED Vital Signs: Vital Signs - 24 hr 07/26/25 10:05 07/26/25 11:57 07/26/25 11:59 Temperature 98.5 F 98 F 98 F Pulse Rate 67 72 72 Respiratory Rate 14 14 14 Blood Pressure 120/69 118/59 L 118/59 L Pulse Oximetry 98 97 97 Oxygen Delivery Method Room Air Room Air Room Air BMI result Body Mass Index 32.0 vital signs stable General: well appearing, in no acute distress, wearing sunglasses Skin: Warm, dry, intact. No rashes or lesions. Head: Normocephalic, atraumatic. EENT: Hearing is intact b/l. Conjunctiva clear. Sclera is anicteric. PERRLA. EOM intact. Moist mucous membranes.? Cardiac: Chest wall symmetric. RRR Lungs: Normal respiratory effort without accessory muscle use. CTA bilaterally Abdomen: Soft, non-tender, non-distended. No rebound tenderness or guarding. Positive BS x4. Back: No midline spinous or paraspinal tenderness. No step off deformity. Ext: no pitting edema, no calf tenderness b/l Neuro: AOx3. Normal speech. NIH 0. normal finger to nose, heel to nieves. No motor or sensory deficits. Psych: Responds appropriately to questions. Course Course Course Narrative: CBC without leukocytosis or left shift. h&h stable and above transfusion threshold.? No thrombocytosis. Chemistry showing mild hyponatremia to 134 however around her baseline. No acute electrolyte abnormality requiring intervention. Renal and liver function around baseline. UA without infection. EKG showing NSR w/ a rate other than 69 bpm, no acute ischemic changes or ST elevations.? > patient anxious for discharge. Calling [employer], would like to return to the pharmacy to obtain her prescriptions.? > given a dose of meclizine in ED. she has remained asymptomatic and her exam is completely non focal. At this time, plan to treat for vertigo. Refill of meclizine sent to pharmacy.? Patient has remained stable throughout ED visit today. Discussed worrisome signs and symptoms and when to return to the ED. All questions answered at this time. Patient is agreeable with disposition and stable for discharge. Medications Administered Discontinued Medications Generic Name Dose Route Start Last Admin Trade Name Freq PRN Reason Stop Dose Admin Clonazepam 0.5 mg 07/26/25 08:46 07/26/25 09:02 Clonazepam 0.5 Mg Tablet PO 07/26/25 08:47 0.5 mg ONCE ONE Administration Meclizine HCl 25 mg 07/26/25 08:44 07/26/25 09:02 Meclizine Hcl 25 Mg Tablet PO 07/26/25 08:45 25 mg ONCE ONE Administration Medical Decision Making Medical Decision Making [facility] Narrative: 79 year old israeli speaking female with pmhx significant for anxiety, SVT, HTN, dementia, vertigo, stage 3 CKD presents to the ED today via EMS from [facility] for evaluation of dizziness. Differential diagnoses includes: anemia, electrolyte abnormality, hypoglycemia, dehydration, medication side effect, BPPV vs labrynthitis, anxiety, UTI No red flag features for central vertigo to include gradual onset, vertical/bidirectional or nonfatigable nystagmus, focal neurologic findings on exam (including inability to ambulate). Presentation not consistent with an acute STUDENT SERVICES ADVISOR infection, vertebral basilar artery insufficiency, cerebellar hemorrhage or infarction,?intracranial mass or bleed, temporal lobe epilepsy,?MS, trauma, complex migraine headache. I have also considered ACS, arrhythmia, PE, pneumonia. Plan: labs, ekg, US Differential Diagnosis Differential Diagnoses: The differential diagnosis associated with the presentation includes as above. Admission/Observation not indicated Lab Data MDM Lab Attestation statement: I reviewed the patient's lab results. as above. 07/26/25 08:51 07/26/25 08:51 Labs: Lab Results 07/26/25 07/26/25 Range/Units 08:51 10:41 WBC 7.2 (4.8-10.8) X10*3/uL RBC 3.90 L (4.20-5.50) X10*6/uL Hgb 11.0 L (12.0-16.0) g/dl Hct 32.3 L (37.0-47.0) % MCV 82.8 (80.0-98.0) fL MCH 28.2 (27.0-33.0) pg MCHC 34.1 (31.0-35.0) g/dl RDW 14.0 (11.0-16.0) % Plt Count 257 (160-400) X10*3/uL MPV 8.5 L (9.4-12.3) fL Immature Gran % (Auto) 0.3 (0.0-0.4) % Neut % (Auto) 66.5 (45-73) % Lymph % (Auto) 23.5 (20-40) % [place] % (Auto) 8.2 (2-11) % Eos % (Auto) 0.7 (0-4) % Baso % (Auto) 0.8 (0-2) % Lymph # (Auto) 1.7 (1.2-4.9) X10*3/uL [place] # (Auto) 0.6 (0.1-1.2) X10*3/uL Eos # (Auto) 0.1 (0.0-0.4) X10*3/uL Baso # (Auto) 0.1 (0.0-0.2) X10*3/uL Abs Immat Gran (auto) 0.02 (0.00-0.03) X10*3/uL Absolute Neuts (auto) 4.8 (2.0-8.3) x10*3/uL Absolute Nucleated RBC 0.000 (0.0-0.012) X10*3/uL Nucleated RBC % (auto) 0.0 (0.0-0.2) /100WBC Sodium 134 L (135-145) mmol/L Potassium 4.6 (3.3-5.1) mmol/L Chloride 100 (96-108) mmol/L Carbon Dioxide 28 (22-29) mmol/L Anion Gap 11 L (12-20) BUN 19 H (9-16) mg/dL Creatinine 0.97 (0.5-1.4) mg/dL Estim Creat Clear Calc 47.9 Estimated GFR 55 Random Glucose 102 (60-115) mg/dL Calcium 8.9 (8.4-10.2) mg/dL Total Bilirubin 0.3 (0.0-1.0) mg/dL AST 28 (5-31) U/L ALT 17 (0-31) U/L Alkaline Phosphatase 80 (39-117) U/L Total Protein 7.6 (6.5-8.0) g/dL Albumin 4.1 (3.5-5.0) g/dL Urine Color Yellow Urine Appearance Clear Urine pH 6.5 (5.0-9.0) Ur Specific [place] 1.010 (1.005-1.025) Urine Protein Negative (Neg-Trace) mg/dL Urine Glucose (UA) Negative (Negative) mg/dL Urine Ketones Negative (Negative) mg/dL Urine Blood Negative (Negative) Urine Nitrite Negative (Negative) Ur Leukocyte Esterase Moderate (2+) H (Negative) Urine RBC 0-2 (0-2) /HPF Urine WBC 21-50 H (0-5) /HPF Ur Squamous Epith Cells 0-2 (0-2) /HPF Urine Bacteria None Seen (None Seen) Hyaline Casts 0-2 (0-2) /LPF Independent Interpretation I performed an independent interpretation of an: EKG Interpretation: NSR w/ a rate other than 69 bpm, no acute ischemic changes or ST elevations.? Radiology Impression Discussion of test interpretation with radiology: I have reviewed the radiologist's reading. Independent Historian Clinical information obtained from an independent historian. History obtained from or confirmed by: EMS External Record Review External record reviewed: Inpatient record Prescription Management I considered prescription management with: Other (meclizine) Chronic Conditions Patient?s care impacted by: Hypertension and Other (vertigo) Social Determinants Patient?s care significantly limited by Social Determinants of Health including: Other Social Determinant of Health Critical Care Time Critical Care Time Critical Care Time: No Discharge Plan Discharge Clinical Impression: Dizziness Patient Disposition: Home, Self-Care Instructions: Dizziness (ED) Additional Instructions: Your work up today is reassuring. Your symptoms improved with rest and meclizine. I am sending a refill of your meclizine to the pharmacy. Follow up with your outpatient providers. Return with any new or worsening symptoms. In the case of an emergency call 911. Prescriptions: New meclizine 12.5 mg tablet 12.5 mg PO TID PRN (Reason: dizziness or vertigo) Qty: 30 0RF No Action metoprolol succinate 50 mg tablet extended release 24 hr 50 mg PO DAILY Qty: 90 2RF valsartan 160 mg tablet 160 mg PO QPM Qty: 90 1RF mirtazapine 45 mg Tablet 45 mg PO BEDTIME omeprazole 20 mg Tablet,Delayed Release (Dr/Ec) 20 mg PO DAILY@0630 fluticasone propionate [Flonase Allergy Relief] 50 mcg/actuation spray,suspension 2 spray intranasal DAILY Qty: 16 0RF Rx Instructions: administer into each nostril hydroxyzine HCl 25 mg tablet 25 mg PO TID PRN (Reason: anxiety) Qty: 6 0RF hydroxyzine HCl 25 mg tablet 25 mg PO TID PRN (Reason: anxiety) Qty: 20 0RF miconazole nitrate 2 % cream 1 appl topical BID Qty: 28 0RF azithromycin [Zithromax] 250 mg tablet 250 mg PO DAILY 4 Days Qty: 4 0RF Rx Instructions: start on day 2 of therapy clonazepam 0.5 mg tablet 0.5 mg PO DAILY Qty: 4 0RF apixaban 5 mg tablet See Rx Instructions .ROUTE .COMPLEX Qty: 74 0RF Rx Instructions: Take 2 tablets (10mg) twice daily for the first 7 days THEN Take 1 tablet (5mg) twice daily for the remainder of the prescription. trazodone 50 mg tablet 50 mg PO BEDTIME ferrous sulfate [FeroSul] 325 mg (65 mg iron) tablet 325 mg PO DAILY diphenhydramine HCl [Lou-Dryl] 25 mg tablet 25 mg PO BEDTIME PRN (Reason: itch) bisacodyl 5 mg tablet,delayed release (DR/EC) 5 mg PO DAILY PRN (Reason: constipation) rosuvastatin 20 mg tablet 20 mg PO BEDTIME aspirin 81 mg tablet,delayed release (DR/EC) 81 mg PO QAM multivitamin Tablet 1 tab PO QAM melatonin 10 mg tablet extended release 10 mg PO BEDTIME PRN (Reason: Insomnia) cholecalciferol (vitamin D3) 25 mcg (1,000 unit) tablet 25 mcg PO DAILY ondansetron 4 mg tablet,disintegrating 4 mg PO Q6H PRN (Reason: nausea and vomiting) Qty: 10 0RF acetaminophen 500 mg tablet 500 mg PO Q8H PRN (Reason: pain) zolpidem 5 mg tablet 5 mg PO BEDTIME PRN (Reason: Insomnia) ipratropium bromide 21 mcg (0.03 %) spray,non-aerosol 2 spray intranasal BID clonazepam 0.5 mg Tablet 0.5 mg PO TID Qty: 180 0RF gabapentin 100 mg Capsule 100 mg PO TID Qty: 180 0RF nitrofurantoin monohyd/m-cryst [Macrobid] 100 mg capsule 100 mg PO Q12H 3 Days Qty: 6 0RF Rx Instructions: must administer with a meal/food miconazole nitrate [Monistat 7] 2 % cream 1 appful vaginal BEDTIME 7 Days Qty: 45 0RF ofloxacin 0.3 % drops 10 drp otic (ears) DAILY 7 Days Qty: 5 0RF docusate sodium [Col-Rite] 100 mg capsule 200 mg PO BID Qty: 30 0RF polyethylene glycol 3350 [ClearLax] 17 gram/dose powder 17 g PO Q8H Qty: 238 0RF Advanced Healing (Petrolatum) 41 % ointment 1 appl topical BID PRN (Reason: irritated skin) Qty: 50 0RF docusate sodium [Colace] 100 mg capsule 200 mg PO BID Qty: 20 0RF polyethylene glycol 3350 [Miralax] 17 gram/dose powder 17 g PO BID Qty: 119 0RF simethicone 180 mg capsule 180 mg PO BID PRN (Reason: abdominal distention) Qty: 14 0RF acetaminophen 500 mg tablet 500 mg PO Q6H PRN (Reason: fever or pain) Qty: 30 0RF meclizine 12.5 mg tablet 12.5 mg PO TID PRN (Reason: vertigo) 5 Days Qty: 20 0RF ibuprofen 200 mg tablet 200 mg PO Q6H PRN (Reason: pain) Qty: 20 0RF sertraline 100 mg tablet 100 mg PO DAILY amlodipine 10 mg tablet 10 mg PO DAILY meclizine 25 mg tablet 25 mg PO DAILY PRN Referrals: Name,MD Nitin [Primary Care Provider, Internal Medicine] Interventions: ED Discharge Assessment Last Done: 07/26/25 11:57 Discharge Date/Time: 07/26/25 12:04 Print Language: Indonesian
[2025-07-26 08:24] VITALS: BP 136/76; BP 148/73; PULSE 73; PULSE 76; RESP 18; TEMP 37.1; O2SAT 97; BMI 32.0
--- NOTE | 2025-07-26 08:28 | ECG_ITS ---
Test Reason : dizziness Blood Pressure : */* mmHG Vent. Rate : 69 BPM Atrial Rate : 69 BPM P-R Int : 180 ms QRS Dur : 98 ms QT Int : 400 ms P-R-T Axes : -29 -18 -21 degrees QTcB Int : 428 ms Normal sinus rhythm Moderate voltage criteria for LVH, may be normal variant ( R in aVL , [place] product ) Inferior infarct , age undetermined Abnormal ECG When compared with ECG of 24-Jul-2025 02:30, No significant change was found Referred By: Generic ED Physician Electronically Signed By: ZANDRA ENNIS
[2025-07-26 08:54] LABS: MANUAL DIFF FLAG NO
[2025-07-26 08:56] LABS: Hematocrit 32.3 % (37.0-47.0); Hemoglobin 11.0 g/dl (12.0-16.0); Imm Gran Abs Auto 0.02 X10*3/uL (0.00-0.03); Imm Gran Pct Auto 0.3 % (0.0-0.4); Lymphocytes Absolute Auto 1.7 X10*3/uL (1.2-4.9); Mean Corpuscular HGB Conc 34.1 g/dl (31.0-35.0); Mean Corpuscular Hemoglobin 28.2 pg (27.0-33.0); Mean Corpuscular Volume 82.8 fL (80.0-98.0); NRBC Abs Auto 0.000 X10*3/uL (0.0-0.012); NRBC Pct Auto 0.0 /100WBC (0.0-0.2); Platelet Count 257 X10*3/uL (160-400); Red Blood Count 3.90 X10*6/uL (4.20-5.50); White Blood Count 7.2 X10*3/uL (4.8-10.8)
[2025-07-26 09:17] LABS: Alanine Aminotransferase 17 U/L (0-31); Albumin Level 4.1 g/dL (3.5-5.0); Alkaline Phosphatase 80 U/L (39-117); Anion Gap 11 (12-20); Aspartate Amino Transferase 28 U/L (5-31); Blood Urea Nitrogen 19 mg/dL (9-16); Calcium 8.9 mg/dL (8.4-10.2); Carbon Dioxide 28 mmol/L (22-29); Chloride 100 mmol/L (96-108); Creatinine Clr Calc Pharmacy 47.9; Estimated Glomerular Filt Rate 55; Potassium 4.6 mmol/L (3.3-5.1); Sodium 134 mmol/L (135-145); Total Protein 7.6 g/dL (6.5-8.0)
[2025-07-26 10:05] VITALS: BP 120/69; PULSE 67; RESP 14; TEMP 36.9; O2SAT 98
--- NOTE | 2025-07-26 10:30 | MHC.EDTECH ---
Patient ambulated to the bathroom independently and she did very well.
--- OUTSIDE RECORDS SUMMARY | 2025-07-26 10:36 | XMS_ITS | Encounter Summary ---
Author Organization [employer] Address [address] [facility] [address] [place] [address] Care Team Providers Care Financial Reporting Accountant Name Role Phone Name, Nitin PIKE Primary Care Provider [phone] Reason for Visit * Reason Onset Date Comments Hospital Follow-up 10/20/2024 Encounter Details Date Type Department Care Team ([facility] Contact Info) Description 10/20/2024 Telephone [facility] MEDICINE [address] [place], [place] [phone] Name, MD Nitin [address] [place] [address] Hospital Follow-up Social History Tobacco Use Types [...] requesting a HDF appt. Hospital: [facility] Date of admission: 10/17 Discharge date: 10/19 Diagnosed: High Blood Pressure and Fever Contact pt at [phone] *Send message to [place] Clinical Care Coordinators documented in this encounter Plan of Treatment Upcoming Encounters Date Type Department Care Team (Late st Contact Info) Description 08/09/2025 11:15 AM EDT Office Visit [facility] MEDICINE [address] [place] [id number] Name, MD Nitin [address] [place] [address] documented as of this encounter Visit Diagnoses Not on filedocumented in this encounter Additional Health Concerns Assessment Noted Time PHQ-9 Depression Total Score: 6 02/13/20 24 9:14 AM EDT documented as of this encounter Care Teams Financial Reporting Accountant Relationship Specialty Start Date End Date Name, MD Nitin [address] [place] [address] PCP - General Family Medicine 08/26/17 [facility] 09/01/24 documented as of this encounter
--- OUTSIDE RECORDS SUMMARY | 2025-07-26 10:36 | XMS_ITS | Encounter Summary ---
Author Organization [employer] Address [address] [facility] [address] [place] [address] Care Team Providers Care Stratigraphy Teacher Name Role Phone Name, Nitin PIKE Primary Care Provider [phone] Reason for Visit * Reason Comments Med Refill Encounter Details Date Type Department Care Team ([facility] st Contact Info) Description 04/01/2024 Refill [facility] MEDICINE [address] [place], [place] [phone] Name, MD Nitin [address] [place] [address] Rash Social History Tobacco Use Types Packs/Day [...] Description 08/09/2025 11:15 AM EDT Office Visit [facility] MEDICINE [address] [place] [address] Name, MD Nitin [address] [place] [address] documented as of this encounter Visit Diagnoses Diagnosis Rash Rash and other nonspecific skin eruption documented in this encounter Additional Health Concerns Assessment Noted Time PHQ-9 Depression Total Score: 6 02/13/20 24 9:14 AM EDT documented as of this encounter Care Teams Stratigraphy Teacher Relationship Specialty Start Date End Date NameNitin MD [address] [place] [address] PCP - General Family Medicine 08/26/17 [facility] 09/01/24 documented as of this encounter
--- OUTSIDE RECORDS SUMMARY | 2025-07-26 10:36 | XMS_ITS | Encounter Summary ---
Author Organization [employer] Address [address] [facility] [address] [place] [address] Care Team Providers Care Hat Checker Name Role Phone Name, Nitin PIKE Primary Care Provider [phone] Reason for Visit * Reason Onset Date Comments ER Follow-up 05/31/2024 Encounter Details Date Type Department Care Team ([facility] Contact Info) Description 05/31/[address] [facility] MEDICINE [address] [place], [place] [phone] Name, MD Nitin [address] [place] [address] ER Follow-up Social History Tobacco Use Types [...] 05/31/2024 1:36 PM EDT T/C to Pat ([facility]) [phone] for below message, no answer. LVM to call back on [phone]. * Telephone Encounter - Melany Santos RN - 05/31/2024 1:32 PM EDT DAVID T/C to pt. Through [facility] id - [id number] for below message, pt. Had recent fall and ED visit at [facility]. RN will request GRACE piedra from [facility]. Pt. Is doing good, states I am tired andsleeping. Pt. Dose not has any question or concern right now. Pt. Already has HDF apt. Schedule on 06/10/2024. Pt. Advised to give call to [facility] if any questions or concerns. Pt. Verbally agreed and understood. Please review and advise if needed. * Telephone Encounter - Adithya Solorzano - 05/31/2024 12:50 PM EDT Patient calling to report ED visit on : Date: 05/26 Hospital: [facility] Seen for: Fall, Back Pain Pat stated pt is requesting a sooner apt with pcp due to recent ER visit. PT is also requesting order for PT services for to go along with [facility]. documented in this encounter Plan of Treatment Upcoming Encounters Date Type Department Care Team (Late st Contact Info) Description 08/09/2025 11:15 AM EDT Office Visit [facility] MEDICINE [address] [place] [address] Name, MD Nitin [address] [place] [address] documented as of this encounter Visit Diagnoses Not on filedocumented in this encounter Additional Health Concerns Assessment Noted Time PHQ-9 Depression Total Score: 6 02/13/20 24 9:14 AM EDT documented as of this encounter Care Teams Hat Checker Relationship Specialty Start Date End Date Name, MD Nitin [address] [place] [id number] PCP - General Family Medicine 08/26/17 [facility] 09/01/24 documented as of this encounter
--- OUTSIDE RECORDS SUMMARY | 2025-07-26 10:36 | XMS_ITS | Encounter Summary ---
Author Organization [employer] Address [address] [facility] [address] [place] [address] Care Team Providers Care Lead Inspector Name Role Phone Name, Nitin PIKE Primary Care Provider [phone] Encounter Details Date Type Department Care Team ([facility] st Contact Info) Description 07/25/2025 Refill [facility] MEDICINE [address] [place], [place] [phone] Name, MD Nitin [address] [place] [address] Social History Tobacco Use Types Packs/Day Years [...] 11:15 AM EDT Office Visit [facility] MED[facility] [address] [place] [address] NameNitin MD [address] [place] [address] documented as of this encounter Visit Diagnoses Not on filedocumented in this encounter Additional Health Concerns Assessment Noted Time PHQ-9 Depression Total Score: 3 04/29/20 25 9:41 AM EDT documented as of this encounter Care Teams Lead Inspector Relationship Specialty Start Date End Date NameNitin MD [address] [place] [address] PCP - General Family Medicine 08/26/17 [facility] 09/01/24 documented as of this encounter
--- OUTSIDE RECORDS SUMMARY | 2025-07-26 10:36 | XMS_ITS | Encounter Summary ---
Author Organization [employer] Address 75 [facility] 7t [place] [address] Care Team Providers Care Film Sound Coordinator Name Role Phone Name, Nitin PIKE Primary Care Provider [phone] Encounter Details Date Type Department Care Team (Late st Contact Info) Description 07/26/2025 Orders Only GENERIC EXTERNAL DATA DEPARTMENT Provider, Generic External Data Social History Tobacco Use Types Packs/Day Years [...] Description 08/09/2025 11:15 AM EDT Office Visit [facility] [address] [place] [address] Name, MD Nitin [address] [place] [address] documented as of this encounter Procedures Procedure Name Priority Date/Time Associated Diagnosis Comments CBC WITH AUTO DIFFERENTIAL Routine 07/26/2025 8:51 AM EDT COMPREHENSIVE METABOLIC PANEL Routine 07/26/2025 8:51 AM EDT documented in this encounter Results * (ABNORMAL) Comprehensive Metabolic Panel (07/26/2025 8:51 AM EDT) Sodium 134(L) 135 - 145 mmol/L [facility] Potassium 4.6 3.3 - 5.1 mmol/L [facility] Chloride 100 96 - 108 mmol/L [facility] Carbon Dioxide 28 22 - 29 mmol/L [facility] Anion Gap 11(L) 12 - 20 [facility] Urea Nitrogen (BUN) 19(H) 9 - 16 mg/dL [facility] Creatinine, Serum 0.97 0.5 - 1.4 mg/dL [facility] Creatinine Clr Calc Pharmacy 47.9 [facility] Comment:Provided height and weight: 162.56 cm,84.7 kg.eGFR (calculated from the MDRD study equation) and eCrCl(calculated from the Cockcroft-Gault equation) are based ondifferent parameters and may not yield comparable results.If eCrCl result is absurd, please check patient'sheight/weight. Estimated Glomerular Filt Rate 55 [facility] Comment:Chronic Kidney Disea se: Estimated GFR < 60 mL/min/1.06t6Bbxiie Kidney Disease: Estimated GFR < 15 mL/min/1.73m2 Glucose 102 60 - 115 mg/dL [facility] Calcium 8.9 8.4 - 10.2 mg/dL [facility] Bilirubin, Total 0.3 0.0 - 1.0 mg/dL [facility] Aspartate Amino Transferase 28 5 - 31 U/L [facility] Alanine Aminotransferase 17 0 - 31 U/L [facility] Total Protein 7.6 6.5 - 8.0 g/dL [facility] Albumin Level 4.1 3.5 - 5.0 g/dL [facility] Alkaline Phosphatase 80 39 - 117 U/L [facility] 07/26/2025 8:51 AM EDT 07/26/2025 8:53 AM EDT us Generic External Data Provider LAB BLOOD ORDERAB LES Final Result [facility] [address] [place] [address] [phone] * (ABNORMAL) CBC auto differential (07/26/2025 8:51 AM EDT) White Blood Count 7.2 4.8 - 10.8 X10*3/uL [facility] Red Blood Count 3.90(L) 4.20 - 5.50 X10*6/uL [facility] Hemoglobin 11.0(L) 12.0 - 16.0 g/dl [facility] Hematocrit 32.3(L) 37.0 - 47.0 % [facility] Mean Corpuscular Volume 82.8 80.0 - 98.0 fL [facility] Mean Corpuscular Hemoglobin 28.2 27.0 - 33.0 pg [facility] Mean Corpuscular HGB Conc 34.1 31.0 - 35.0 g/dl [facility] Red Cell Distribution Width 14.0 11.0 - 16.0 % [facility] Platelet Count 257 160 - 400 X10*3/uL [facility] Mean Platelet Volume 8.5(L) 9.4 - 12.3 fL [facility] Neutrophils Percent Auto 66.5 45 - 73 % [facility] Imm Gran Pct Auto 0.3 0.0 - 0.4 % [facility] Lymphocytes Percent Auto 23.5 20 - 40 % [facility] Monocytes Percent Auto 8.2 2 - 11 % [facility] Eosinophils Percent Auto 0.7 0 - 4 % [facility] Basophils Percent Auto 0.8 0 - 2 % [facility] NRBC Pct Auto 0.0 0.0 - 0.2 /100WBC [facility] Neutrophils Absolute Auto 4.8 2.0 - 8.3 x10*3/uL [facility] Imm Gran Abs Auto 0.02 0.00 - 0.03 X10*3/uL [facility] Lymphocytes Absolute Auto 1.7 1.2 - 4.9 X10*3/uL [facility] Monocytes Absolute Auto 0.6 0.1 - 1.2 X10*3/uL [facility] Eosinophils Absolute Auto 0.1 0.0 - 0.4 X10*3/uL [facility] Basophils Absolute Auto 0.1 0.0 - 0.2 X10*3/uL [facility] NRBC Abs Auto 0.000 0.0 - 0.012 X10*3/uL [facility] 07/26/2025 8:51 AM EDT 07/26/2025 8:53 AM EDT us Generic External Data Provider LAB BLOOD ORDERAB LES Final Result [facility] [address] [place] [address] [phone] documented in this encounter Visit Diagnoses Not on filedocumented in this encounter Additional Health Concerns Assessment Noted Time PHQ-9 Depression Total Score: 3 04/29/20 25 9:41 AM EDT documented as of this encounter Care Teams Film Sound Coordinator Relationship Specialty Start Date End Date Name, MD Nitin [address] [place] [address] PCP - General Family Medicine 08/26/17 [facility] 09/01/24 documented as of this encounter
--- OUTSIDE RECORDS SUMMARY | 2025-07-26 10:36 | XMS_ITS | Encounter Summary ---
Author Organization [employer] Address 75 [facility] 7[address] [place] [address] Care Team Providers Care Education Specialist Name Role Phone Name, Nitin PIKE Primary Care Provider [phone] Encounter Details Date Type Department Care Team ([facility] st Contact Info) Description 05/26/2023 Orders Only [facility] [address] [place] [address] Noreen Fox MD [address] [place] [address] Social History Tobacco Use Types Packs/Day Years [...] Description 08/09/2025 11:15 AM EDT Office Visit [facility] [address] [place] [address] Name, MD Nitin [address] [place] [address] documented as of this encounter Visit Diagnoses Not on filedocumented in this encounter Care Teams Education Specialist Relationship Specialty Start Date End Date Name, MD Nitin [address] [place] [address] PCP - General Family Medicine 08/26/17 [facility] 09/01/24 documented as of this encounter
--- OUTSIDE RECORDS SUMMARY | 2025-07-26 10:36 | XMS_ITS | Encounter Summary ---
Author Organization [employer] Address 75 [facility] 7[address] [place] [address] Care Team Providers Care Store Team Leader Name Role Phone Name, Nitin PIKE Primary Care Provider [phone] Reason for Visit * Reason Comments Med Refill Encounter Details Date Type Department Care Team (Late st Contact Info) Description 07/25/2025 Refill [facility] [address] [place], [place] [phone] Name, MD Nitin [address] [place] [address] Social History Tobacco Use Types Packs/Day Years [...] Description 08/09/2025 11:15 AM EDT Office Visit [facility] MEDICINE [address] [place] [address] NameNitin MD [address] [place] [address] documented as of this encounter Visit Diagnoses Not on filedocumented in this encounter Additional Health Concerns Assessment Noted Time PHQ-9 Depression Total Score: 3 04/29/20 25 9:41 AM EDT documented as of this encounter Care Teams Store Team Leader Relationship Specialty Start Date End Date NameNitin MD [address] [place] [address] PCP - General Family Medicine 08/26/17 [facility] 09/01/24 documented as of this encounter
--- OUTSIDE RECORDS SUMMARY | 2025-07-26 10:36 | XMS_ITS | Encounter Summary ---
Author Organization [employer] Address 75 [facility] 7[address] [place] [address] Care Team Providers Care Magnet Maker Name Role Phone Name, Nitin PIKE Primary Care Provider [phone] Reason for Visit * Reason Comments Med Refill Encounter Details Date Type Department Care Team ([facility] st Contact Info) Description 06/28/2024 Refill [facility] [address] [place], [place] [phone] Mel Anguiano FNP [address] [place] [address] Social History Tobacco Use Types Packs/Day Years [...] Description 08/09/2025 11:15 AM EDT Office Visit [facility] MED[facility]INE [address] [place] [address] Name, MD Nitin [address] [place] [address] documented as of this encounter Visit Diagnoses Not on filedocumented in this encounter Additional Health Concerns Assessment Noted Time PHQ-9 Depression Total Score: 6 02/13/20 24 9:14 AM EDT documented as of this encounter Care Teams Magnet Maker Relationship Specialty Start Date End Date Name, MD Nitin [address] [place] [address] PCP - General Family Medicine 08/26/17 [facility] 09/01/24 documented as of this encounter
--- OUTSIDE RECORDS SUMMARY | 2025-07-26 10:36 | XMS_ITS | Encounter Summary ---
Author Organization [employer] Address 75 [facility] 7[address] [place] [address] Care Team Providers Care Wool Washing Machine Operator Name Role Phone Name, Nitin PIKE Primary Care Provider [phone] Reason for Visit * Reason Onset Date Comments ER Follow-up 05/04/2024 Encounter Details Date Type Department Care Team ([facility] Contact Info) Description 05/04/2024 Telephone [facility] [address] [place], [place] [phone] Name, MD Nitin [address] [place] [address] ER Follow-up Social History Tobacco Use Types [...] 11:01 AM EDT T/C to pt. Through Eventap id - [id number] for below message, No answer. LVM to call back [phone] . * Telephone Encounter - Adithya Solorzano - 05/04/2024 9:35 AM EDT Noreen with [facility] calling to report ED visit on : Date: 04/28 Hospital: [facility] Seen for: UTI, Nausea, Rash. Noreen advised will be forwarding message to team nurses. Please contact pt at [phone]. documented in this encounter Plan of Treatment Upcoming Encounters Date Type Department Care Team (Late st Contact Info) Description 08/09/2025 11:15 AM EDT Office Visit [facility] [address] [place] [address] Name, MD Nitin [address] [place] [address] documented as of this encounter Visit Diagnoses Not on filedocumented in this encounter Additional Health Concerns Assessment Noted Time PHQ-9 Depression Total Score: 6 02/13/20 24 9:14 AM EDT documented as of this encounter Care Teams Wool Washing Machine Operator Relationship Specialty Start Date End Date Name, MD Nitin [address] [place] [address] PCP - General Family Medicine 08/26/17 [facility] 09/01/24 documented as of this encounter
--- OUTSIDE RECORDS SUMMARY | 2025-07-26 10:36 | XMS_ITS | Encounter Summary ---
Author Organization [employer] Address 75 [facility] 7t [place] [address] Care Team Providers Care Environmental Services Project Manager Name Role Phone Name, Nitin PIKE Primary Care Provider [phone] Reason for Visit * Reason Onset Date Comments ER Follow-up 07/26/2025 Encounter Details Date Type Department Care Team ([facility] st Contact Info) Description 07/26/2025 Telephone [facility] MED[facility] [address] [place], [place] [phone] Name, MD Nitin 230 [place] [address] ER Follow-up Social History Tobacco Use Types [...] the past 12 months, has t he [employer] gas, oil or water company threatened to [...] encounter Miscellaneous Notes * Telephone Encounter - Giuliana Villeda RN - 07/26/2025 10:33 AM EDT Pt currently at [facility] ED as of AM on 07/26/25. Will task to check [facility] and status check on 07/27/25. * Telephone Encounter - Charlotte Ochoa RN - 07/26/2025 8:20 AM EDT Patient came to the clinic this morning to potato picker her medication was here early waiting for the pharmacy to open. Pt became very dizzy and almost fell. Security team was able to hold the patient andplace her in a wheel chair before she fell EMS was called and pt was taken to [facility]. Pt was also in the ED on Friday for similar symptoms will send task to cumming team nurses for status check documented in this encounter Plan of Treatment Upcoming Encounters Date Type Department Care Team (Late st Contact Info) Description 08/09/2025 11:15 AM EDT Office Visit [facility] MED[facility]INE [address] [place] [address] Name, MD Nitin [address] [place] [address] documented as of this encounter Visit Diagnoses Not on filedocumented in this encounter Additional Health Concerns Assessment Noted Time PHQ-9 Depression Total Score: 3 04/29/20 25 9:41 AM EDT documented as of this encounter Care Teams Environmental Services Project Manager Relationship Specialty Start Date End Date Name, MD Nitin [address] [place] [address] PCP - General Family Medicine 08/26/17 [facility] 09/01/24 documented as of this encounter
--- OUTSIDE RECORDS SUMMARY | 2025-07-26 10:36 | XMS_ITS | Clinical Summary ---
Author Organization [facility] Address [address] [place] [address] Phone Care Team Providers Care Town Clerk Name Role Phone Physician, No Pcp Primary [...] LAB CHEMISTRY METHOD 09/22/2024 3:15 AM EST [facility] Albumin 4.2 3.2 - 5.0 g/dL LAB CHEMISTRY METHOD 09/22/2024 3:15 AM EST [facility] Total Bilirubin 0.4 0.0 - 1.4 mg/dL LAB CHEMISTRY METHOD 09/22/2024 3:15 AM EST [facility] Blood Venous blood specimen / Unknown Venipuncture / Unknown 09/22/2024 2:28 AM EST 09/22/2024 2:31 AM EST Paul RUIZ LAB BLOOD ORDERABLES Final Resul t [facility] [address] [place] [address], from Last 3 Months or Most Recently Relevant to Health Maintenance Insurance [facility] MEDIC[facility] Member Subscriber Plan / Payer (Ef fective 2021-Present) Name:Noreen Wing Relation to Subscriber:Self Name:Noreen Wing Payer ID:[id number] Group ID:[id number] Type:Not on file Address: [place] [address] [address] Care Teams Town Clerk Relationship Specialty Start Date End Date Physician, No Pcp PCP - General 09/22/24
--- OUTSIDE RECORDS SUMMARY | 2025-07-26 10:36 | XMS_ITS | Clinical Summary ---
Author Organization [facility] Address [address] [address] Care Team Providers Care Sales Representative Adding Machines Name Role Phone Name, Nitin PIKE Primary Care Provider [phone] Allergies Active Allergy Reactions Criticality Noted Date [...] patient's age to complete this topic [place] [address] MCR ([id number]) [address] [place] [phone] [facility] MCR ([id number]) Care Teams Sales Representative Adding Machines Relationship Specialty Start Date End Date Name, MD Nitin [address] [place] [address] PCP - General Internal Medicine 10/15/22
--- OUTSIDE RECORDS SUMMARY | 2025-07-26 10:36 | XMS_ITS | Encounter Summary ---
Author Organization [employer] Address 75 [facility] 7t [place] [address] Care Team Providers Care Armoring Machine Operator Name Role Phone Name, Nitin PIKE Primary Care Provider [phone] Reason for Visit * Reason Onset Date Comments Results 08/29/2023 Encounter Details Date Type Department Care Team ([facility] st Contact Info) Description 08/29/2023 Telephone [facility] [address] [place], [place] [phone] Name, MD Nitin 230 [place] [address] Results Social History Tobacco Use Types Packs/Day [...] 11:51 AM EDT Pt evaluated in [facility] today and is scheduled with pcp 09/03/23. * Telephone Encounter - Janette Huitron - 08/29/2023 4:06 PM EDT Tc from pt requesting a call in regards to urine results. Please contact pt at [phone] (Maori) documented in this encounter Plan of Treatment Upcoming Encounters Date Type Department Care Team (Late st Contact Info) Description 08/09/2025 11:15 AM EDT Office Visit [facility] [address] [place] [address] Name, MD Nitin [address] [place] [address] documented as of this encounter Visit Diagnoses Not on filedocumented in this encounter Additional Health Concerns Assessment Noted Time PHQ-9 Depression Total Score: 12 023 9:37 AM EDT documented as of this encounter Care Teams Armoring Machine Operator Relationship Specialty Start Date End Date NameNitin MD [address] [place] [address] PCP - General Family Medicine 08/26/17 [facility] 09/01/24 documented as of this encounter
--- OUTSIDE RECORDS SUMMARY | 2025-07-26 10:36 | XMS_ITS | Encounter Summary ---
Author Organization [employer] Address 75 [facility] [address] [place] [address] Care Team Providers Care Pattern Setter Name Role Phone Name, Nitin PIKE Primary Care Provider [phone] Reason for Visit * Reason Comments Med Refill Encounter Details Date Type Department Care Team (Late st Contact Info) Description 04/20/2025 Refill [facility] [address] [place] [address] Zechariah Cheung MD 230 [place] [address] Allergic rhinitis, unspecified seasonality, unspecified trigger Social [...] Description 08/09/2025 11:15 AM EDT Office Visit [facility] [address] [place] [address] NameNitin MD [address] [place] [address] documented as of this encounter Visit Diagnoses Diagnosis Allergic rhinitis, unspecified seasonality, unspecified trigger documented in this encounter Additional Health Concerns Assessment Noted Time PHQ-9 Depression Total Score: 6 02/13/20 24 9:14 AM EDT documented as of this encounter Care Teams Pattern Setter Relationship Specialty Start Date End Date Nitin Echevarria MD [address] [place] [address] PCP - General Family Medicine 08/26/17 [facility] 09/01/24 documented as of this encounter
--- OUTSIDE RECORDS SUMMARY | 2025-07-26 10:36 | XMS_ITS | Encounter Summary ---
Author Organization [employer] Address 75 [facility] 7[address] [place] [address] Care Team Providers Care Skiver Heel Tap Name Role Phone Name, Nitin PIKE Primary Care Provider [phone] Reason for Visit * Reason Onset Date Comments Med Refill 11/08/2024 Encounter Details Date Type Department Care Team ([facility] st Contact Info) Description 11/08/2024 Telephone [facility] MEDICINE [address] [place], [place] [phone] Name, MD Nitin [address] [place] [address] Med Refill Social History Tobacco Use Types [...] 5 MG tablet To be sent to: [facility] - [place], [place] - [address] [facility] documented in this encounter Plan of Treatment Upcoming Encounters Date Type Department Care Team ([facility] st Contact Info) Description 08/09/2025 11:15 AM EDT Office Visit [facility] MED[facility] [address] [place] [address] Name, MD Nitin [address] [place] [address] documented as of this encounter Visit Diagnoses Not on filedocumented in this encounter Additional Health Concerns Assessment Noted Time PHQ-9 Depression Total Score: 6 02/13/20 24 9:14 AM EDT documented as of this encounter Care Teams Skiver Heel Tap Relationship Specialty Start Date End Date Name, MD Nitin [address] [place] [address] PCP - General Family Medicine 08/26/17 [facility] 09/01/24 documented as of this encounter
--- OUTSIDE RECORDS SUMMARY | 2025-07-26 10:37 | XMS_ITS | Encounter Summary ---
Author Organization [employer] Address 75 [facility] 7t [place] [address] Care Team Providers Care Sawmill Equipment Operator Name Role Phone Name, Nitin PIKE Primary Care Provider [phone] Reason for Visit * Reason Onset Date Comments FYI 01/21/2024 ER Follow-up 01/21/2024 Encounter Details Date Type Department Care Team ([facility] st Contact Info) Description 01/21/2024 Telephone [facility] MEDICINE 230 [place], [place] [phone] Name, MD Nitin [address] [place] [address] FYI; ER Follow-up Social History Tobacco Use [...] - 01/21/2024 1:54 PM EDT Message from [facility] ED noted. [facility] note sent to medical records. PCP does not rx Trazodone. Pt to f/u with psych prescriber. Pt is scheduled for f/u with pcp 02/13/24. * Telephone Encounter - Janette Huitron - 01/21/2024 9:45 AM EDT Tc from nata with [facility] ED calling in regards to pt. [...] EDT Office Visit [facility] MEDICINE [address] [place] [address] Name, MD Nitin [address] [place] [address] documented as of this encounter Visit Diagnoses Not on filedocumented in this encounter Additional Health Concerns Assessment Noted Time PHQ-9 Depression Total Score: 12 023 9:37 AM EDT documented as of this encounter Care Teams Sawmill Equipment Operator Relationship Specialty Start Date End Date Name, MD Nitin [address] [place] [address] PCP - General Family Medicine 08/26/17 [facility] 09/01/24 documented as of this encounter
--- OUTSIDE RECORDS SUMMARY | 2025-07-26 10:37 | XMS_ITS | Encounter Summary ---
Author Organization [employer] Address 75 [facility] 7[address] [place] [address] Care Team Providers Care Thoracic Medicine Physician Name Role Phone Name, Nitin PIKE Primary Care Provider [phone] Reason for Visit * Reason Onset Date Comments Order(s) 12/09/2023 Encounter Details Date Type Department Care Team ([facility] Contact Info) Description 12/09/2023 Telephone [facility] MED[facility] [address] [place], [place] [phone] Name, MD Nitin [address] [place], [place] [phone] Order(s) Social History Tobacco Use Types Packs/Day [...] orders. If any questions please contact Noreen [phone]. documented in this encounter Plan of Treatment Upcoming Encounters Date Type Department Care Team (Late st Contact Info) Description 08/09/2025 11:15 AM EDT Office Visit [facility] MEDICINE [address] [place] [address] Name, MD Nitin [address] [place] [address] documented as of this encounter Visit Diagnoses Not on filedocumented in this encounter Additional Health Concerns Assessment Noted Time PHQ-9 Depression Total Score: 12 023 9:37 AM EDT documented as of this encounter Care Teams Thoracic Medicine Physician Relationship Specialty Start Date End Date Name, MD Nitin [address] [place] [address] PCP - General Family Medicine 08/26/17 [facility] 09/01/24 documented as of this encounter
--- OUTSIDE RECORDS SUMMARY | 2025-07-26 10:37 | XMS_ITS | Encounter Summary ---
Author Organization [employer] Address 75 [facility] [address] [place] [address] Care Team Providers Care Lead Furnace Operator Name Role Phone Name, Nitin PIKE Primary Care Provider [phone] Reason for Visit * Reason Comments Med Refill Encounter Details Date Type Department Care Team (Late st Contact Info) Description 08/16/2024 Refill [facility] [address] [place], [place] [phone] Name, MD Nitin [address] [place] [address] Heartburn Social History Tobacco Use Types Packs/Day [...] 11:15 AM EDT Office Visit [facility] MEDICINE [address] [place] [address] NameNitin MD [address] [place] [address] documented as of this encounter Visit Diagnoses Diagnosis Heartburn documented in this encounter Additional Health Concerns Assessment Noted Time PHQ-9 Depression Total Score: 6 02/13/20 24 9:14 AM EDT documented as of this encounter Care Teams Lead Furnace Operator Relationship Specialty Start Date End Date NameNitin MD [address] [place] [address] PCP - General Family Medicine 08/26/17 [facility] 09/01/24 documented as of this encounter
--- OUTSIDE RECORDS SUMMARY | 2025-07-26 10:37 | XMS_ITS | Encounter Summary ---
Author Organization [employer] Address [address] [facility] [address] [place] [address] Care Team Providers Care Billet Examiner Name Role Phone Name, Nitin PIKE Primary Care Provider Reason for Visit * Reason Onset Date Comments Verbal Orders 12/15/2023 Encounter Details Date Type Department Care Team ([facility] st Contact Info) Description 12/15/2023 Telephone [facility] [address] [place], [place] [phone] Name, MD Nitin [address] [place] [address] Verbal Orders Social History Tobacco Use Types [...] 12:03 PM EST Tc from [facility] with [employer] requesting verbal order to see pt 2 times a week for 4 weeks for Occupational Therapy, please contact [facility] at [phone] documented in this encounter Plan of Treatment Upcoming Encounters Date Type Department Care Team (Late st Contact Info) Description 08/09/2025 11:15 AM EDT Office Visit [facility] [address] [place] [address] Name, MD Nitin [address] [place] [address] documented as of this encounter Visit Diagnoses Not on filedocumented in this encounter Additional Health Concerns Assessment Noted Time PHQ-9 Depression Total Score: 12 023 9:37 AM EDT documented as of this encounter Care Teams Billet Examiner Relationship Specialty Start Date End Date NameNitin MD [address] [place] [address] PCP - General Family Medicine 08/26/17 [facility] 09/01/24 documented as of this encounter
--- OUTSIDE RECORDS SUMMARY | 2025-07-26 10:37 | XMS_ITS | Encounter Summary ---
Author Organization [employer] Address [address] [facility] [address] [place] [address] Care Team Providers Care Head Rose Grower Name Role Phone Name, Nitin PIKE Primary Care Provider [phone] Reason for Visit * Reason Onset Date Comments triage 12/18/2022 Encounter Details Date Type Department Care Team ([facility] st Contact Info) Description 12/18/2022 Telephone [facility] [address] [place], [place] [phone] Name, MD Nitin [address] [place] [address] triage Social History Tobacco Use Types Packs/Day [...] 12/18/2022 2:35 PM EST Called pt. Via [employer] senior project manager engineering [phone] Eduardo. Pt. States that she has a [...] phone. Please reach out to pt. With Turkish speaking another time to see what her [...] 11:15 AM EDT Office Visit [facility] [address] [place] [phone] Name, MD Nitin [address] [place] [address] documented as of this encounter Visit Diagnoses Not on filedocumented in this encounter Care Teams Head Rose Grower Relationship Specialty Start Date End Date Name, MD Nitin [address] [place] [address] PCP - General Family Medicine 08/26/17 [facility] 09/01/24 documented as of this encounter
--- OUTSIDE RECORDS SUMMARY | 2025-07-26 10:37 | XMS_ITS | Encounter Summary ---
Author Organization [employer] Address [address] [facility] [address] [place] [address] Care Team Providers Care Guest Room Inspector Name Role Phone Name, Nitin PIKE Primary Care Provider [phone] Reason for Visit * Reason Comments Med Refill Encounter Details Date Type Department Care Team (Late Contact Info) Description 03/02/2023 Refill [facility] [address] [place] [phone] Karely Patiño MD [address] [place] [address] [phone] Social History Tobacco Use Types Packs/Day Years [...] Description 08/09/2025 11:15 AM EDT Office Visit [facility] [address] [place] [address] Wale, MD Nitin [address] [place] [address] documented as of this encounter Visit Diagnoses Not on filedocumented in this encounter Care Teams Guest Room Inspector Relationship Specialty Start Date End Date Name, MD Nitin [address] [place] [address] PCP - General Family Medicine 08/26/17 [facility] 09/01/24 documented as of this encounter
--- OUTSIDE RECORDS SUMMARY | 2025-07-26 10:37 | XMS_ITS | Encounter Summary ---
Author Organization [employer] Address 75 [facility] [address] [place] [address] Care Team Providers Care Drapery Estimator Name Role Phone Name, Nitin PIKE Primary Care Provider [phone] Reason for Visit * Reason Onset Date Comments Verbal Orders 01/02/2024 Encounter Details Date Type Department Care Team ([facility] st Contact Info) Description 01/02/2024 Telephone [facility] [address] [place], [place] [phone] Name, MD Nitin 230 [place] [address] Verbal Orders Social History Tobacco Use Types [...] No answer. LVM to call back on [phone]. * Telephone Encounter - Melany Santos RN - 01/06/2024 10:25 AM EST Please review and advise for below request. * Telephone Encounter - Deana Bazzi - 01/02/2024 3:44 PM EST Tc from [facility] with [facility] requesting verbal orders for discharge pt from Occupational Therapy, due to pt refuses services, please contact [facility] at [phone]. documented in this encounter Plan of Treatment Upcoming Encounters Date Type Department Care Team (Late st Contact Info) Description 08/09/2025 11:15 AM EDT Office Visit [facility] [address] [place] [phone] Name, MD Nitin [address] [place] [address] documented as of this encounter Visit Diagnoses Not on filedocumented in this encounter Additional Health Concerns Assessment Noted Time PHQ-9 Depression Total Score: 12 023 9:37 AM EDT documented as of this encounter Care Teams Drapery Estimator Relationship Specialty Start Date End Date Name, MD Nitin [address] [place] [address] PCP - General Family Medicine 08/26/17 [facility] 09/01/24 documented as of this encounter
--- OUTSIDE RECORDS SUMMARY | 2025-07-26 10:37 | XMS_ITS | Encounter Summary ---
Author Organization [employer] Address [address] [facility] [address] [place] [address] Care Team Providers Care Deputy Of Counter Intelligence Name Role Phone Name, Nitin PIKE Primary Care Provider [phone] Encounter Details Date Type Department Care Team ([facility] Contact Info) Description 12/17/2022 Orders Only [facility] & PEDS [address] [place], [place] [phone] Lisha Kelly LPN Social History Tobacco Use [...] Description 08/09/2025 11:15 AM EDT Office Visit [facility] [address] [place] [address] Nitin Echevarria MD 230 [place] [address] documented as of this encounter Visit Diagnoses Not on filedocumented in this encounter Care Teams Deputy Of Counter Intelligence Relationship Specialty Start Date End Date NameNitin MD [address] [place] [address] PCP - General Family Medicine 08/26/17 [facility] 09/01/24 documented as of this encounter
--- OUTSIDE RECORDS SUMMARY | 2025-07-26 10:37 | XMS_ITS | Encounter Summary ---
Author Organization [employer] Address [address] [facility] [address] [place] [address] Care Team Providers Care Hotel Front Desk Clerk Name Role Phone Name, Nitin PIKE Primary Care Provider [phone] Encounter Details Date Type Department Care Team ([facility] Contact Info) Description 01/06/2023 Orders Only [facility] MED & PEDS [address] [place], [place] [phone] Lisha Kelly LPN Social History Tobacco Use [...] Description 08/09/2025 11:15 AM EDT Office Visit [facility] 230 [place], [place] [phone] Name, MD Nitin 230 [place] [address] documented as of this encounter Visit Diagnoses Not on filedocumented in this encounter Care Teams Hotel Front Desk Clerk Relationship Specialty Start Date End Date Name, MD Nitin [address] [place] [address] PCP - General Family Medicine 08/26/17 [facility] 09/01/24 documented as of this encounter
--- OUTSIDE RECORDS SUMMARY | 2025-07-26 10:37 | XMS_ITS | Encounter Summary ---
Author Organization [employer] Address 75 [facility] 7[address] [place] [address] Care Team Providers Care Asp Developer Name Role Phone Name, Nitin PIKE Primary Care Provider [phone] Reason for Visit * Reason Onset Date Comments Durable Medical Equipment 12/09/2023 Encounter Details Date Type Department Care Team ([facility] st Contact Info) Description 12/09/2023 Telephone [facility] [address] [place], [place] [phone] Name, MD Nitin [address] [place], [place] [phone] Durable Medical Equipment Social History Tobacco Use [...] 10:11 AM EST DME rx faxed to [facility] as requested. RN will consult with S nurse and provide referral. * Telephone Encounter - Fozia Jacob RN - 12/09/2023 4:58 PM EST Call returned to [facility][1] at [facility] [phone] ext. [phone]. [facility][1] states that [facility] attempted to provide PT at home but pt refused. [facility] pt is requesting outpatient PT. [facility] pt is seeing a counselor more regularly and has agreed to VNA referral. Reports pt has had 3 falls in the past 2 months. [facility][1] states [facility] no longer has visiting nurses. [facility][1] recommends [facility] or [facility] for VNA referral. [facility][1] also requesting DME rx for rollator walker and a straight cane. Requests that DME rx be faxed to [phone]. Advised requests will be sent to pcp. * Telephone Encounter - Adithya Solorzano - 12/09/2023 4:25 PM EST Tc from [facility] requesting DME: Rollator walker . documented in this encounter Plan of Treatment Upcoming Encounters Date Type Department Care Team (Late st Contact Info) Description 08/09/2025 11:15 AM EDT Office Visit [facility] [address] [place] [address] Name, MD Nitin [address] [place] [address] documented as of this encounter Visit Diagnoses Not on filedocumented in this encounter Additional Health Concerns Assessment Noted Time PHQ-9 Depression Total Score: 12 023 9:37 AM EDT documented as of this encounter Care Teams Asp Developer Relationship Specialty Start Date End Date Name, [place] [address] PCP - General Family Medicine 08/26/17 [facility] 09/01/24 documented as of this encounter
--- OUTSIDE RECORDS SUMMARY | 2025-07-26 10:37 | XMS_ITS | Encounter Summary ---
Author Organization [employer] Address [address] [facility] [address] [place] [address] Care Team Providers Care Millinery Salesperson Name Role Phone Name, Nitin PIKE Primary Care Provider [phone] Reason for Visit * Reason Onset Date Comments Call Back Request 03/14/2025 Encounter Details Date Type Department Care Team ([facility] st Contact Info) Description 03/14/[address] [facility] [address] [place], [place] [phone] Name, MD Nitin 230 [place] [address] Call Back Request Social History Tobacco Use [...] [facility] [address] [place] [address] Name, MD Nitin [address] [place] [address] documented as of this encounter Visit Diagnoses Not on filedocumented in this encounter Additional Health Concerns Assessment Noted Time PHQ-9 Depression Total Score: 6 02/13/20 24 9:14 AM EDT documented as of this encounter Care Teams Millinery Salesperson Relationship Specialty Start Date End Date Name, MD Nitin [address] [place] [address] PCP - General Family Medicine 08/26/17 [facility] 09/01/24 documented as of this encounter
--- OUTSIDE RECORDS SUMMARY | 2025-07-26 10:37 | XMS_ITS | Encounter Summary ---
Author Organization [employer] Address 75 [facility] [address] [place] [address] Care Team Providers Care Forms Examiner Name Role Phone Name, Nitin PIKE Primary Care Provider [phone] Encounter Details Date Type Department Care Team (Late st Contact Info) Description 11/06/2022 Orders Only [facility]S [address] [place], [place] [phone] Lisha Kelly LPN Social History Tobacco Use [...] EDT Office Visit [facility] [address] [place] [address] NameNitin MD 230 [place] [address] documented as of this encounter Visit Diagnoses Not on filedocumented in this encounter Care Teams Forms Examiner Relationship Specialty Start Date End Date Nitni Echevarria MD [address] [place] [address] PCP - General Family Medicine 08/26/17 [facility] 09/01/24 documented as of this encounter
--- OUTSIDE RECORDS SUMMARY | 2025-07-26 10:37 | XMS_ITS | Encounter Summary ---
Author Organization [employer] Address [address] [facility] [address] [place] [address] Care Team Providers Care Room Maid Name Role Phone Name, Nitin PIKE Primary Care Provider [phone] Encounter Details Date Type Department Care Team ([facility] Contact Info) Description 08/08/2023 Telephone [facility] [address] [place] [phone] Name, MD Nitin [address] [place] [address] [phone] Social History Tobacco Use Types Packs/Day Years [...] Description 08/09/2025 11:15 AM EDT Office Visit [facility] [address] [place] [phone] NameNitin MD [address] [place] [address] [phone] documented as of this encounter Visit Diagnoses Not on filedocumented in this encounter Additional Health Concerns Assessment Noted Time PHQ-9 Depression Total Score: 12 023 9:37 AM EDT documented as of this encounter Care Teams Room Maid Relationship Specialty Start Date End Date Name, MD Nitin [address] [place] [address] PCP - General Family Medicine 08/26/17 [facility] 09/01/24 documented as of this encounter
--- OUTSIDE RECORDS SUMMARY | 2025-07-26 10:37 | XMS_ITS | Clinical Summary ---
Author Organization [employer] Address [address] [place] [address] [address] [place] [address] Care Team Providers Care Housekeeper Head Name Role Phone Name, Nitin PIKE Primary Care Provider Allergies Active Allergy Reactions Criticality Noted Date [...] MOUTH EVERY 8 HOURS NEEDED FOR PAIN (GRENADIAN LABEL) 90 tablet Active ammonium lactate (Lac-Hydrin) [...] IN THE EVENING 60 tablet 025 Active Ketotifen Fumarate 0.035 % solutionIndicatio [...] MOUTH TWICE DAILY 120 capsule 025 Active docusate sodium (Colace) 100 MG [...] WITH FOOD 30 tablet 025 2024 Discontinued docusate sodium (Colace) 100 MG capsule TAKE 2 CAPSULES BY MOUTH TWICE DAILY 120 capsule 025 2024 Discontinued(R eorder (will not [...] because it calms her down. I called [facility] pharmacy to attempt a med rec they instructed me that she is on med box and one week at a time prescriptions because she would break into her med boxes to take more Ambien or xanax. She is being seen by Izzy Perea at [facility]. He is aware of her behavior [...] left I received a call from the [facility] pharmacy instructing me that she [...] Encounters Date Type Department Care Team Description 07/26/2025 Orders Only GENERIC EXTERNAL DATA DEPARTMENT Provider, Generic External Data 07/26/2025 Telephone [facility] MEDICINE [address] [place] [address] Nitin Echevarria MD ER Follow-up 07/25/2025 Refill [facility] [address] [place] [address] Nitin Echevarria MD 07/25/2025 Refill [facility] MEDICINE [address] [place] [address] Nitin Echevarria MD 07/18/2025 Refill [facility] [address] [place], [place] [phone] Miryam Riley NP 07/18/2025 Orders Only GENERIC EXTERNAL DATA DEPARTMENT Provider, Generic External Data 07/17/2025 Refill [facility] MEDICINE [address] [place] [address] Nitin Echevarria MD Hypertension, unspecified type 07/07/2025 8:40 AM EDT Office Visit [facility] WALK-[facility] [place] [address] [place] [address] Zahc Javier MD Acute conjunctivitis of left eye, unspecified acute conjunctivitis type (Primary Dx) 07/07/2025 Travel 07/01/2025 9:20 AM EDT Office Visit [facility] WALK-[facility] [place] [address] [place] [address] Zach Javier MD Pedal edema (Primary Dx) 07/01/2025 Travel 06/28/2025 Refill [facility] MED & PEDS [address] [place] [address] Nitin Echevarria MD 06/27/2025 Refill [facility] PEDS [address] [place] [address] Nitin Echevarria MD Vitamin D deficiency 06/19/2025 Refill [facility] WALK[facility] CENTER [address] [place] [address] Nitin Echevarria MD Prediabetes 06/17/2025 9:30 AM EDT Office Visit [address] [address] Thea Warren FNP Generalized anxiety disorder with panic attacks (Primary Dx); Essential (primary) hypertension 06/17/2025 Travel 06/17/[address] [address] Nitin Echevarria MD Med Refill (Pt is ) 06/08/2025 Refill [facility] PEDS [address] [place] [address] Nitin Echevarria MD 05/25/2025 Refill [facility] [address] [place] [address] Miryam Riley NP Vitamin D deficiency 05/11/2025 Refill [facility]S [address] [place], [place] [phone] Nitin Echevarria MD 05/06/2025 9:30 AM EDT Clinical Support [address] [address] Betina Slade, RN Impacted cerumen of right ear [H61.21] 05/06/2025 Results Follow-Up [address] [address] Nitin Echevarria MD Urinalysis, Complete, with Reflex to Culture, Drug Monitoring, Panel 1, Screen, Urine, Culture, Urine, Routine 05/06/2025 Travel 05/04/2025 Orders Only GENERIC EXTERNAL DATA DEPARTMENT Provider, Generic External Data 04/29/2025 10:00 AM EDT Office Visit [facility] MEDICINE [address] [place] [address] Name, MD Nitin Generalized anxiety disorder with panic attacks (Primary Dx); Decreased hearing of both ears; Impacted cerumen of right ear; Rash 04/29/2025 Travel 04/27/2025 Telephone [facility] MEDICINE [address] [place] [address] Ariel David MA CHARTPREP from Last 3 [...] 07/19/2013,08/04/2012 Influenza, Unspecified 07/26/2022 Influenza, trivalent, adjuvanted 07/06/2019,090 02/2018 Moderna Covid-19 Vaccine 12+ 02/19/2022,01/19/20 21,12/22/2020 [...] your housing situation today? I have claus [facility] 06/14/[address] you li [...] Description 08/09/2025 11:15 AM EDT Office Visit [facility] MEDICINE [address] [place], [place] [phone] Name, MD Nitin [address] [place] [address] Health Maintenance Due Date Last Done Comments [...] Date/Time Associated Diagnosis Comments COMPREHENSIVE METABOLIC PANEL Routine 07/26/2025 8:51 AM EDT CBC WITH AUTO DIFFERENTIAL Routine 07/26/2025 8:51 AM EDT HIGH SENSITIVITY TROPONIN I Routine 07/18/2025 6:47 [...] Relevant to Health Maintenance Results * (ABNORMAL) CBC auto differential (07/26/2025 8:51 AM EDT) Only the most recent of2 resultswithin the time period is included. White Blood Count 7.2 4.8 - 10.8 X10*3/uL [facility] Red Blood Count 3.90(L) 4.20 - 5.50 X10*6/uL [facility] Hemoglobin 11.0(L) 12.0 - 16.0 g/dl [facility] Hematocrit 32.3(L) 37.0 - 47.0 % [facility] Mean Corpuscular Volume 82.8 80.0 - 98.0 fL [facility] Mean Corpuscular Hemoglobin 28.2 27.0 - 33.0 pg [facility] Mean Corpuscular HGB Conc 34.1 31.0 - 35.0 g/dl [facility] Red Cell Distribution Width 14.0 11.0 - 16.0 % [facility] Platelet Count 257 160 - 400 X10*3/uL [facility] Mean Platelet Volume 8.5(L) 9.4 - 12.3 fL [facility] Neutrophils Percent Auto 66.5 45 - 73 % [facility] Imm Gran Pct Auto 0.3 0.0 - 0.4 % [facility] Lymphocytes Percent Auto 23.5 20 - 40 % [facility] Monocytes Percent Auto 8.2 2 - 11 % [facility] Eosinophils Percent Auto 0.7 0 - 4 % [facility] Basophils Percent Auto 0.8 0 - 2 % [facility] NRBC Pct Auto 0.0 0.0 - 0.2 /100WBC [facility] Neutrophils Absolute Auto 4.8 2.0 - 8.3 x10*3/uL [facility] Imm Gran Abs Auto 0.02 0.00 - 0.03 X10*3/uL [facility] Lymphocytes Absolute Auto 1.7 1.2 - 4.9 X10*3/uL [facility] Monocytes Absolute Auto 0.6 0.1 - 1.2 X10*3/uL [facility] Eosinophils Absolute Auto 0.1 0.0 - 0.4 X10*3/uL [facility] Basophils Absolute Auto 0.1 0.0 - 0.2 X10*3/uL [facility] NRBC Abs Auto 0.000 0.0 - 0.012 X10*3/uL [facility] 07/26/2025 8:51 AM EDT 07/26/2025 8:53 AM EDT us Generic External Data Provider LAB BLOOD ORDERAB LES Final Result [facility] [address] [place] [phone] * (ABNORMAL) Comprehensive Metabolic Panel (07/26/2025 8:51 AM EDT) Sodium 134(L) 135 - 145 mmol/L [facility] Potassium 4.6 3.3 - 5.1 mmol/L [facility] Chloride 100 96 - 108 mmol/L [facility] Carbon Dioxide 28 22 - 29 mmol/L [facility] Anion Gap 11(L) 12 - 20 [facility] Urea Nitrogen (BUN) 19(H) 9 - 16 mg/dL [facility] Creatinine, Serum 0.97 0.5 - 1.4 mg/dL [facility] Creatinine Clr Calc Pharmacy 47.9 [facility] Comment:Provided height and weight: 162.56 cm,84.7 kg.eGFR (calculated from the MDRD study equation) and eCrCl(calculated from the Cockcroft-Gault equation) are based ondifferent parameters and may not yield comparable results.If eCrCl result is absurd, please check patient'sheight/weight. Estimated Glomerular Filt Rate 55 [facility] Comment:Chronic Kidney Disea se: Estimated GFR < 60 mL/min/1.20v2Csmjax Kidney Disease: Estimated GFR < 15 mL/min/1.73m2 Glucose 102 60 - 115 mg/dL [facility] Calcium 8.9 8.4 - 10.2 mg/dL [facility] Bilirubin, Total 0.3 0.0 - 1.0 mg/dL [facility] Aspartate Amino Transferase 28 5 - 31 U/L [facility] Alanine Aminotransferase 17 0 - 31 U/L [facility] Total Protein 7.6 6.5 - 8.0 g/dL [facility] Albumin Level 4.1 3.5 - 5.0 g/dL [facility] Alkaline Phosphatase 80 39 - 117 U/L [facility] 07/26/2025 8:51 AM EDT 07/26/2025 8:53 AM EDT us Generic External Data Provider LAB BLOOD ORDERAB LES Final Result [facility] [address] [place] [phone] * High Sensitivity Troponin I (07/18/2025 6:47 AM EDT) TROPONIN I HIGH SENSITIVITY <2.7 <3.5 - 17.0 ng/L [facility] Comment:The Mckeon high sens itivity Troponin-I results should beused in conjunction with other diagnostic information suchas ECG, clinical observations and information, and patientsymptoms to aid in the diagnosis of NV. 07/18/2025 6:47 AM EDT 07/18/2025 6:50 AM EDT us Generic External Data Provider LAB BLOOD ORDERAB LES Final Result Performing Organization Address [facility]/ZIP Co de Phone Number [facility] [address] [place] [phone] [phone] * (ABNORMAL) Basic Metabolic Panel (07/18/2025 6:47 AM EDT) Sodium 141 135 - 145 mmol/L [facility] Potassium 4.6 3.3 - 5.1 mmol/L [facility] Chloride 105 96 - 108 mmol/L [facility] Carbon Dioxide 30(H) 22 - 29 mmol/L [facility] Anion Gap 11(L) 12 - 20 [facility] Urea Nitrogen (BUN) 25(H) 9 - 16 mg/dL [facility] Creatinine, Serum 0.96 0.5 - 1.4 mg/dL [facility] Creatinine Clr Calc Pharmacy 50.3 [facility] Comment:Provided height and weight: 160.02 cm,94.9 kg.eGFR (calculated from the MDRD study equation) and eCrCl(calculated from the Cockcroft-Gault equation) are based ondifferent parameters and may not yield comparable results.If eCrCl result is absurd, please check patient'sheight/weight. Estimated Glomerular Filt Rate 56 [facility] Comment:Chronic Kidney Disea se: Estimated GFR < 60 mL/min/1.18q3Cbefxu Kidney Disease: Estimated GFR < 15 mL/min/1.73m2 Glucose 101 60 - 115 mg/dL [facility] Calcium 8.8 8.4 - 10.2 mg/dL [facility] 07/18/2025 6:47 AM EDT 07/18/2025 6:50 AM EDT us Generic External Data Provider LAB BLOOD ORDERAB LES Final Result Performing Organization Address [facility]/ZIP Co de Phone Number [facility] [address] [place] [phone] * (ABNORMAL) Urinalysis, Complete, with Reflex to Culture (05/04/2025 11:33 PM EDT) Color Urine Yellow [facility] Appearance Urine Clear [facility] PH 5.5 5.0 - 9.0 [facility] Glucose Urine UA Negative Negative mg/dL [facility] Urine Blood Negative Negative [facility] Specific [place] - Urine 1.015 1.005 - 1.025 [facility] Urine Protein Negative Neg-Trace mg/dL [facility] Urine Ketones Negative Negative mg/dL [facility] Nitrite Urine Negative Negative [facility] Leukocyte Esterase Urine Moderate (2+)(A) Negative [facility] RBC Urine 0-2 0 - 2 /HPF [facility] Urine WBC 21-50(A) 0 - 5 /HPF [facility] Urine Squamous Epithelial Cell 0-2 0 - 2 /HPF [facility] Urine Bacteria None Seen None Seen [facility] Hyaline Casts, Urine 0-2 0 - 2 /LPF [facility] 05/04/2025 11:3 3 PM EDT 05/04/2025 11:36 PM EDT Narrative [facility] - 05/04/2025 11:41 PM EDT Urine, Clean Catch us Generic External Data Provider LAB URINE ORDERAB LES Final Result [facility] [address] [place] [phone] * Drug Monitoring, Panel 1, Screen, Urine (05/04/2025 11:33 PM EDT) Opiate Screen Urine Not Detected Not Detect [facility] Comment:Opiate cut-off is 30 0 ng/mL.Positive results are unconfirmed and should not be used fornon-medical purposes. Barbiturates, Urine Not Detected Not Detect [facility] Comment:Barbiturate cut-off is 200 ng/mL.Positive results are unconfirmed and should not be used fornon-medical purposes. Phencyclidine Screen Urine Not Detected Not Detect [facility] Comment:Phencyclidine cut-of f is 25 ng/mL.Positive results are unconfirmed and should not be used fornon-medical purposes. Amphetamine Screen Urine Not Detected Not Detect [facility] Comment:Amphetamine cut-off is 1000 ng/mL.Positive results are unconfirmed and should not be used fornon-medical purposes. Benzodiazepines Screen Urine Not Detected Not Detect [facility] Comment:Benzodiazepine cut-o ff is 200 ng/mL.Positive results are unconfirmed and should not be used fornon-medical purposes. Cocaine Screen Urine Not Detected Not Detect [facility] Comment:Cocaine cut-off is 3 00 ng/mL.Positive results are unconfirmed and should not be used fornon-medical purposes. Cannabinoid Screen Urine Not Detected Not Detect [facility] Comment:Cannabinoid cut-off is 50 ng/mL.Positive results are unconfirmed and should not be used fornon-medical purposes. Methadone Screen, Urine Not Detected Not Detect ng/mL [facility] Comment:Methadone cut-off is 300 ng/mL.Positive results are unconfirmed and should not be used fornon-medical purposes. FENTANYL URINE Not Detected Not Detect [facility] Comment:Fentanyl cut-off is 1 ng/mL.Positive results are unconfirmed and should not be used fornon-medical purposes. Oxycodone Urine Screen Not Detected Not Detect ng/mL [facility] Comment:Oxycodone cut-off is 100 ng/mL.Positive results are unconfirmed and should not be used fornon-medical purposes. Buprenorphine Screen Not Detected Not Detect ng/mL [facility] Comment:Buprenorphine cut-of f is 5 ng/mL.Positive results are unconfirmed and should not be used fornon-medical purposes. 05/04/2025 11:3 3 PM EDT 05/04/2025 11:36 PM EDT us Generic External Data Provider LAB URINE ORDERAB LES Final Result [facility] [address] [place] [phone] [phone] * CT Sinus Facial Bones w/o Contrast (05/04/2025 11:25 PM EDT) Anatomical Region Laterality Modality Computed Tomogra phy 05/04/2025 11:2 5 PM EDT Narrative 05/04/2025 11:27 PM EDT [address] [address] [address] Scan Report Signed Patient: Noreen Wing MR#: [id number] : 1945 Acct:[id number] Age/Sex: 79 / F ADM Date: 05/04/25 Loc: HO.ED Attending Dr: Ordering Physician: Marta Briscoe MD Date of Service: 05/04/25 Procedure(s): CT facial bones wo IV con Accession Number(s): [id number] cc: Name,Nitin PIKE; Marta Briscoe MD Report Number: [id number]: Total DLP = 1435.00 mGy-cm CLINICAL HISTORY: [...] in OV> 05/04/252326 DD/ 24 TD/TT: 05/04/252324 Portable Sawmill Operator: Procedure Note Donotuseinterpreter, Image - 05/04/[address] [address] [address] Scan Report Signed Patient: Noreen WingMR#: [id number] : 1945cct:[id number] Age/Sex: 79 / FADM Date: 05/04/25 Loc: HO.ED Attending Dr: Ordering Physician: Marta Briscoe MD Date of Service: 05/04/25 Procedure(s): CT facial bones wo IV con Accession Number(s): [id number] cc: Name,Nitin PIKE; Marta Briscoe MD Report Number: [id number]: Total DLP = 1435.00 mGy-cm CLINICAL HISTORY: [...] in OV> 05/04/252326 DD/ 24 TD/TT: 05/04/252324 Portable Sawmill Operator: [facility] External Provider IMG CT PROCEDURES Final Result * CT Head w/o Contrast (05/04/2025 11:24 PM EDT) Anatomical Region Laterality Modality Head, Neck Computed Tomogra phy 05/04/2025 11:2 4 PM EDT Narrative 05/04/2025 11:25 PM EDT [address] [address] [address] Scan Report Signed Patient: Noreen Wing MR#: [id number] : 1945 Acct:[id number] Age/Sex: 79 / F ADM Date: 05/04/25 Loc: HO.ED Attending Dr: Ordering Physician: Marta Briscoe MD Date of Service: 05/04/25 Procedure(s): CT head/brain wo IV con Accession Number(s): [id number] cc: Nitin Echevarria MD; Marta Briscoe MD Report Number: [id number]: Total DLP = 1435.00 mGy-cm CLINICAL HISTORY: [...] in OV> 05/04/252324 DD/ 23 TD/TT: 05/04/252323 Portable Sawmill Operator: Procedure Note Donotuseinterpreter, Image - 05/04/[address] [place] [address] [address] Scan Report Signed Patient: Noreen WingMR#: [id number] : 1945cct:[id number] Age/Sex: 79 / FADM Date: 05/04/25 Loc: .ED Attending Dr: Ordering Physician: Marta Briscoe MD Date of Service: 05/04/25 Procedure(s): CT head/brain wo IV con Accession Number(s): [id number] cc: Nitin Echevarria MD; Marta Briscoe MD Report Number: [id number]: Total DLP = 1435.00 mGy-cm CLINICAL HISTORY: [...] in OV> 05/04/252324 DD/ 23 TD/TT: 05/04/252323 Portable Sawmill Operator: [facility] External Provider IMG CT PROCEDURES Final Result * CT Cervical Spine w/o Contrast (05/04/2025 11:21 PM EDT) Anatomical Region Laterality Modality Spine, C-spine Computed Tomogra phy 05/04/2025 11:2 1 PM EDT Narrative 05/04/2025 11:23 PM EDT [address] [address] [address] Scan Report Signed Patient: Noreen Wing MR#: [id number] : 1945 Acct:[id number] Age/Sex: 79 / F ADM Date: 05/04/25 Loc: HO.ED Attending Dr: Ordering Physician: Marta Briscoe MD Date of Service: 05/04/25 Procedure(s): CT cervical spine wo IV con Accession Number(s): [id number] cc: Nitin Echevarria MD; Marta Briscoe MD Report Number: [id number]: Total DLP = 1434.00 mGy-cm CLINICAL HISTORY: [...] in OV> 05/04/252321 DD/ 20 TD/TT: 05/04/252320 Portable Sawmill Operator: Procedure Note Donotuseinterpreter, Image - 05/04/[address] [place] [address] [address] Scan Report Signed Patient: Noreen Wing#: [id number] : 3Acct:[id number] Age/Sex: 79 / FADM Date: 05/04/25 Loc: HO.ED Attending Dr: Ordering Physician: Marta Briscoe MD Date of Service: 05/04/25 Procedure(s): CT cervical spine wo IV con Accession Number(s): [id number] cc: Nitin Echevarria MD; Marta Briscoe MD Report Number: [id number]: Total DLP = 1434.00 mGy-cm CLINICAL HISTORY: [...] in OV> 05/04/252321 DD/ 20 TD/TT: 05/04/252320 Portable Sawmill Operator: [facility] External Provider IMG CT PROCEDURES Final Result * Culture, Urine, Routine (05/04/2025 12:00 AM EDT) Urine Urine specimen obtained by clean catch procedure / Unknown 05/04/2025 05/04/2025 Comment:[facility] Narrative [facility] - 05/06/2025 1:19 PM EDT Strep agalactiae (Grp B) Quant 10,000 to 50,000 cfu/mL Susc N/A Susceptibility not routinely performed on this isolate. Specimen Source: Urine clean catch Generic External Data Provider LAB MICROBIOLOGY - GENERAL ORDERABLES Final Result [facility] [address] [place] [address] [phone] * POCT HGB A1C (01/10/2025 11:02 AM EST) Hemoglobin A1C 5.1 4.0 - 6.0 % QC Media Lot # [id number] Lot# Expiration Date Blood 01/10/2025 11:0 2 AM EST Nitin cEhevarria MD POINT OF CARE TEST ENTER/EDIT OR [...] equation in the estimation of LDL-C. Jack SS et al. JITENDRA. 2013;310(19): 7503-5710 (http://education.CyberDefender.Helpjuice.com/faq/AEI707) Non-HDL Cholesterol 88 <130 mg/dL (calc) CONVERTED [...] Most Recently Relevant to Health Maintenance Insurance [facility] [employer] (HMO D-SNP) [place] [id number] Care Teams Housekeeper Head Relationship Specialty Start Date End Date Name, MD Nitin [address] [place] [phone] PCP - General Family Medicine 08/26/17 [facility] 09/01/24
--- OUTSIDE RECORDS SUMMARY | 2025-07-26 10:37 | XMS_ITS | Encounter Summary ---
Author Organization [employer] Address [address] [facility] [address] [place] [address] Care Team Providers Care Relay Shop Supervisor Name Role Phone Name, Nitin PIKE Primary Care Provider [phone] Reason for Visit * Reason Comments Med Refill Encounter Details Date Type Department Care Team (Late st Contact Info) Description 01/09/[address] [facility] [address] [place], [place] [phone] Name, MD Nitin [address] [place] [address] Hypertension, unspecified type Social History Tobacco Use [...] AM EDT Office Visit [facility] [address] [place] [phone] NameNitin MD [address] [place] [address] documented as of this encounter Visit Diagnoses Diagnosis Hypertension, unspecified type documented in this encounter Additional Health Concerns Assessment Noted Time PHQ-9 Depression Total Score: 6 02/13/20 9:14 AM EDT documented as of this encounter Care Teams Relay Shop Supervisor Relationship Specialty Start Date End Date NameNitin MD [address] [place] [phone] PCP - General Family Medicine 08/26/17 [facility] 09/01/24 documented as of this encounter
[2025-07-26 10:58] LABS: Appearance Urine Clear; Glucose Urine UA Negative (Negative); PH 6.5 (5.0-9.0); Specific Gravity - Urine 1.010 (1.005-1.025); UMIC TRIGGER UACC YES
[2025-07-26 11:04] LABS: UACC Culture Trigger YES
[2025-07-26 11:57] VITALS: BP 118/59; PULSE 72; RESP 14; TEMP 36.6; O2SAT 97
[2025-07-26 11:59] VITALS: BP 118/59; PULSE 72; RESP 14; TEMP 36.6; O2SAT 97
== END 2025-07-26 12:04 | disposition home or self-care (01) ==
PROVIDERS: Physician Assistant Medical; Emergency Provider Emergency Medicine; PCP Internal Medicine Geriatric Medicine
DX: R42 Dizziness and giddiness (principal); I12.9 Hypertensive chronic kidney disease with stage 1 through stage 4 chronic kidney disease, or unspecified chronic kidney disease; N18.30 Chronic kidney disease, stage 3 unspecified; Z79.899 Other long term (current) drug therapy
CPT/HCPCS: 36415; 80053; 81001; 81003; 85025; 87086; 93005; 99283; 99284

== ENCOUNTER → 2025-07-26 08:28 | Outpatient (BNV) | payer OTHER, SELFPAY | PROVIDERS: Emergency Provider Emergency Medicine; PCP Internal Medicine Geriatric Medicine; Visit Provider Internal Medicine | DX: R94.31 Abnormal electrocardiogram [ECG] [EKG] (principal); R42 Dizziness and giddiness | CPT/HCPCS: 93010 ==

== ENCOUNTER 2025-07-27 07:23 | Emergency (ER) | payer OTHER, SELFPAY ==
--- NOTE | ~2025-07-27 | CT_ITS ---
EXAMINATION: CT ANGIOGRAM CHEST CLINICAL INFORMATION: Elevated d-dimer. COMPARISON: July 25, 2019. TECHNIQUE: Multiple axial images were obtained through the chest after the administration of 65 mL of Omnipaque 350 intravenous contrast. Extensive vascular post-processing including two-dimensional and three-dimensional reformatted images were created and reviewed on an independent workstation. SmartPrep technique This CT examination was performed using dose optimization techniques as appropriate, variously including the following: *Automated exposure control *Adjustment of mA and/or kV according to patient size (this includes techniques or standardized protocols for targeted exams where dose is matched to indication/reason for exam; i.e. extremities or head) *Use of iterative reconstruction technique DLP: 279 mGy centimeter. FINDINGS: Main pulmonary artery, its main left and right pulmonary branches demonstrated normal patency without gross intraluminal filling defects. There is questionable intraluminal filling defects within the subsegmental pulmonary branches to the right lower lung lobe. No gross aneurysm or dissection, thoracic aorta. Pulmonary patchy and confluent groundglass, bilaterally. No pleural effusion. No pneumothorax. No bronchiectasis. No honeycombing. 4 mm calcified pulmonary nodule, right lung apex. No mediastinal or perihilar lymphadenopathy. No gross pericardial effusion. The interventricular septum is normal. The main pulmonary artery diameter is similar to slightly smaller to the ascending thoracic aorta. Callus formation and the posterior aspect of the left 11th rib. Multilevel spondylosis throughout the axial skeleton without gross acute fracture or listhesis. Sternum is intact. Scapula is intact. Degenerative changes in the right acromioclavicular joint and sternoclavicular joints. CT/CT angio chest PE protocol IMPRESSION: Questionable acute pulmonary embolism, subsegmental pulmonary branches to the right lower lung lobe. No right heart strain. Mild interstitial lung edema versus pneumonitis. 4 mm granuloma, right upper lung lobe. Fleischner guidelines were followed. Electronically signed by: Buster Panchal MD 07/27/2025 09:20 AM EDT
--- NOTE | 2025-07-27 07:30 | ED.GENADULT ---
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 Patient states this chest pain woke her up from sleep and was associated with nausea. Patient states the pain is located underneath the left breast and is worse with exertion and deep inspiration. This pain does not radiate anywhere. MD complaint: L sided chest pain Related Data Home Medications ?Medication ?Instructions ?Recorded ?Confirmed mirtazapine 45 mg tablet 45 mg PO BEDTIME 08/09/20 03/16/25 omeprazole 20 mg tablet,delayed 20 mg PO DAILY@0630 08/09/20 03/16/25 release aspirin 81 mg tablet,delayed 81 mg PO QAM 01/28/24 03/16/25 release bisacodyl 5 mg tablet,delayed 5 mg PO DAILY PRN constipation 01/28/24 03/16/25 release diphenhydramine HCl 25 mg tablet 25 mg PO BEDTIME PRN itch 01/28/24 03/16/25 (Lou-Dryl) ferrous sulfate 325 mg (65 mg 325 mg PO DAILY 01/28/24 03/16/25 iron) tablet (FeroSul) melatonin 10 mg tablet,extended 10 mg PO BEDTIME PRN Insomnia 01/28/24 03/16/25 release multivitamin 1 tab PO QAM 01/28/24 03/16/25 rosuvastatin 20 mg tablet 20 mg PO BEDTIME 01/28/24 03/16/25 trazodone 50 mg tablet 50 mg PO BEDTIME 01/28/24 03/16/25 amlodipine 10 mg tablet 10 mg PO DAILY 02/09/24 03/16/25 acetaminophen 500 mg tablet 500 mg PO Q8H PRN pain 08/09/24 03/16/25 ipratropium bromide 21 mcg (0.03 2 spray intranasal BID 08/09/24 03/16/25 %) nasal spray zolpidem 5 mg tablet 5 mg PO BEDTIME PRN Insomnia 08/09/24 03/16/25 cholecalciferol (vitamin D3) 25 25 mcg PO DAILY 08/20/24 03/16/25 mcg (1,000 unit) tablet meclizine 25 mg tablet 25 mg PO DAILY PRN 09/29/24 03/16/25 sertraline 100 mg tablet 100 mg PO DAILY 03/16/25 03/16/25 Previous Rx's ?Medication ?Instructions ?Recorded metoprolol succinate 50 mg 50 mg PO DAILY #90 tabs 09/28/20 tablet,extended release 24 hr fluticasone propionate 50 2 spray intranasal DAILY #16 grams 09/16/23 mcg/actuation nasal spray,suspension (Flonase Allergy Relief) ondansetron 4 mg disintegrating 4 mg PO Q6H PRN nausea and 04/28/24 tablet vomiting #10 tabs hydroxyzine HCl 25 mg tablet 25 mg PO TID PRN anxiety #6 tabs 08/07/24 clonazepam 0.5 mg tablet 0.5 mg PO TID #180 tabs 08/10/24 gabapentin 100 mg capsule 100 mg PO TID #180 caps 08/10/24 hydroxyzine HCl 25 mg tablet 25 mg PO TID PRN anxiety #20 tabs 09/09/24 miconazole nitrate 2 % vaginal 1 appful vaginal BEDTIME 7 days 10/09/24 cream (Monistat 7) #45 grams nitrofurantoin 100 mg PO Q12H 3 days #6 caps 10/09/24 monohydrate/macrocrystals 100 mg capsule (Macrobid) miconazole nitrate 2 % topical 1 appl topical BID #28 grams 01/01/25 cream ofloxacin 0.3 % ear drops 10 drp otic (ears) DAILY 7 days #5 02/01/25 mL docusate sodium 100 mg capsule 200 mg (2 x 100 mg) PO BID #30 caps 02/07/25 (Col-Rite) polyethylene glycol 3350 17 17 g PO Q8H #238 grams 02/07/25 gram/dose oral powder (ClearLax) white petrolatum 41 % topical 1 appl topical BID PRN irritated 02/07/25 ointment (Advanced Healing skin #50 grams (Petrolatum)) azithromycin 250 mg tablet 250 mg PO DAILY 4 days #4 tabs 02/14/25 (Zithromax) docusate sodium 100 mg capsule 200 mg (2 x 100 mg) PO BID #20 caps 02/24/25 (Colace) polyethylene glycol 3350 17 17 g PO BID #119 grams 02/24/25 gram/dose oral powder (Miralax) simethicone 180 mg capsule 180 mg PO BID PRN abdominal 03/03/25 distention #14 caps clonazepam 0.5 mg tablet 0.5 mg PO DAILY #4 tabs 04/17/25 acetaminophen 500 mg tablet 500 mg PO Q6H PRN fever or pain 05/04/25 #30 tabs meclizine 12.5 mg tablet 12.5 mg PO TID PRN vertigo 5 days 07/18/25 #20 tabs valsartan 160 mg tablet 160 mg PO QPM #90 tabs 07/18/25 ibuprofen 200 mg tablet 200 mg PO Q6H PRN pain #20 tabs 07/24/25 meclizine 12.5 mg tablet 12.5 mg PO TID PRN dizziness or 07/26/25 vertigo #30 tabs apixaban 5 mg tablet See Rx Instructions .Route 07/27/25 .COMPLEX #74 tabs Allergies Allergy/AdvReac Type Severity Reaction Status Date / Time penicillin G (Penicillin G) Allergy Severe ITCHY/RASH Verified 07/26/25 08:27 Sulfa (Sulfonamide Allergy Severe ITCHY,RASH, Verified 07/26/25 08:27 Antibiotics) (Sulfa rash (Sulfonamides)) trimethoprim (From Bactrim) Allergy Severe HIVES Verified 07/26/25 08:27 Penicillins Allergy Intermediate Hives Verified 07/26/25 08:27 sulfamethoxazole (From Allergy Mild Hives Verified 07/26/25 08:27 Bactrim) Review of Systems Review of Systems: CONST: Negative for fever, body aches and chills. HENT: Negative for neck pain/stiffness, headache, congestion, sore throat, swelling. EYES: Negative for discharge/pain or vision changes. RESP: Negative for cough/hemoptysis and shortness of breath. CV: Negative difficulty breathing, palpitations. POS L sided chest pain ABD: Negative pain, vomiting. POS nausea : Negative increase frequency, dysuria, blood in urine or stool. MUSC: Negative for muscle aches, edema. SKIN: Negative rash, lesions/sores. NEURO: Negative headache, dizziness, weakness. Yes all other systems are reviewed and are negative [facility] Past Medical History Attestation statement: The following information was validated with the patient. 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) Unable to assess alcohol history related to: Unknown Alcohol intake: never Patient Tobacco Use Status: Never used Tobacco Advance Directives: Yes Advance Directives on File: Yes Advance Directives Date on File: 01/28/24 service: No Physical Exam ED Vital Signs: Vital Signs - 24 hr 07/27/25 07:39 07/27/25 07:59 07/27/25 10:39 Temperature 98.5 F 98.5 F Pulse Rate 69 72 65 Respiratory Rate 18 14 15 Blood Pressure 137/75 132/72 99/66 Pulse Oximetry 96 93 97 Oxygen Delivery Method Room Air Room Air Room Air 07/27/25 10:54 07/27/25 12:21 Temperature 97.7 F Pulse Rate 69 68 Respiratory Rate 20 14 Blood Pressure 131/71 127/70 Pulse Oximetry 96 94 Oxygen Delivery Method Room Air Room Air GENERAL APPEARANCE: ?AxOx4, generally well-appearing, no acute distress. HEENT: ?NC, AT. MMM. EOMI, clear conjunctiva, oropharynx clear. NECK: ?Supple without lymphadenopathy.? No stiffness or restricted ROM. HEART:? Normal rate and regular rhythm, normal S1/S2, no m/r/g LUNGS:? CTAB, moving air well. No crackles or wheezes are heard. ABDOMEN: ?Soft, nontender, nondistended, no rigidity, negative Cruz's, negative rebound tenderness, no suprapubic tenderness BACK: No CVAT, no obvious deformity. EXTREMITIES: ?Without cyanosis, clubbing or edema. NEUROLOGICAL: ?Grossly nonfocal. Alert and oriented, moving all 4 extremities Skin: ?Warm and dry without any rash. Medications Administered Discontinued Medications Generic Name Dose Route Start Last Admin Trade Name Freq PRN Reason Stop Dose Admin Acetaminophen 975 mg 07/27/25 12:53 07/27/25 13:23 Acetaminophen 325 Mg Tablet PO 07/27/25 12:54 975 mg ONCE ONE Administration Apixaban 10 mg 07/27/25 12:53 07/27/25 13:21 Apixaban 5 Mg Tablet PO 07/27/25 12:54 10 mg ONCE ONE Administration Hydroxyzine HCl 10 mg 07/27/25 12:53 07/27/25 13:21 Hydroxyzine Hcl 10 Mg Tablet PO 07/27/25 12:54 10 mg ONCE ONE Administration Iohexol 65 ml 07/27/25 09:03 07/27/25 09:04 Iohexol 350 Mg/Ml 100 Ml Infus..Btl IV 07/27/25 09:04 65 ml ONCE ONE Administration Morphine Sulfate 4 mg 07/27/25 07:37 07/27/25 09:41 Morphine Sulfate 4 Mg/Ml Cartridge IM 07/27/25 07:38 Not Given ONCE ONE Protocol Morphine Sulfate 4 mg 07/27/25 07:57 07/27/25 08:27 Morphine Sulfate 4 Mg/Ml Cartridge IVPUSH 07/27/25 07:58 4 mg ONCE ONE Administration Protocol Ondansetron HCl 4 mg 07/27/25 07:46 07/27/25 07:55 Ondansetron Odt 4 Mg Tab.Rapdis TRANSLINGU 07/27/25 07:47 4 mg ONCE ONE Administration Ondansetron HCl 4 mg 07/27/25 07:57 07/27/25 09:42 Ondansetron Hcl 4 Mg/2 Ml Vial IVPUSH 07/27/25 07:58 Not Given ONCE ONE Medical Decision Making Medical Decision Making MDM Narrative: 79-year-old female with medical history of HTN, HLD, anxiety, neurocognitive disorder, arthritis, vertigo, dementia, hemorrhoids, SVT, CKD, presents to the ED due to left-sided chest pain that started approximately 10 minutes prior to arrival that awoke her from sleep, associated with nausea. Plan: Labs, UA, EKG, CXR Course 12:00- EKG reveals NSR without ST elevation/depression, Twave abnormality, lengthened QT, Trops x2 undetectable at <2.7- ACS less likely Labs without leukocytosis/leukopenia, H&H stable, no electrolyte abnormality, D-dimer slightly elevated at 236, I considered age adjusted D-dimer, however patient with significant pleuritic chest pain will cancel CXR and obtain CTA PE study to definitively rule out PE. UA with 2+ LE, 11-20 WBC, no nitrites, no bacteria. On chart review UA is always positive for LE and WBC's, without urinary symptoms, no abx therapy indicated at this time. 13:05- CTA chest reveals a questionable acute pulmonary embolism of the subsegmental pulmonary branches to the right lower lung lobe. I spoke with Dr. Matias who recommended initiating anticoagulation therapy. I am concerned to discharge patient on on anticoagulation therapy as she is seen in the department frequently for falls and would like PT eval with STR stay. Patient is adamentally against this, and states she will not go to STR. Patient states she lives at home with her son and her son will take care of her. I counseled patient on dangers of bleeding while on AC therapy. I called the health care proxy which is the patients daughter who stated the [facility] checks on the patient daily. I counseled patient on follow up with [facility]. Patient and her daughter are in agreement with the plan. She is requesting something for anxiety and pain. On chart review patient has been discontinued on benzodiazepines. I am giving 10 mg p.o. hydroxyzine for anxiety, 975 p.o. Tylenol for pain. I am also giving patient her 1st dose of 10mg p.o apixaban while in the department. Differential Diagnosis Differential Diagnoses: The differential diagnosis associated with the presentation includes ACS PE pneumonia pneumothorax electrolyte abnormality Admission/Observation Consideration of admission/observation: Escalation of care including admission/observation considered Lab Data MDM Lab Attestation statement: I reviewed the patient's lab results. 07/27/25 07:51 07/27/25 07:51 Labs: Lab Results 07/27/25 07/27/25 07/27/25 Range/Units 07:51 09:35 09:41 WBC 6.9 (4.8-10.8) X10*3/uL RBC 3.81 L (4.20-5.50) X10*6/uL Hgb 10.8 L (12.0-16.0) g/dl Hct 31.6 L (37.0-47.0) % MCV 82.9 (80.0-98.0) fL MCH 28.3 (27.0-33.0) pg MCHC 34.2 (31.0-35.0) g/dl RDW 14.1 (11.0-16.0) % Plt Count 256 (160-400) X10*3/uL MPV 8.6 L (9.4-12.3) fL Immature Gran % (Auto) 0.3 (0.0-0.4) % Neut % (Auto) 57.7 (45-73) % Lymph % (Auto) 28.3 (20-40) % [place] % (Auto) 11.6 H (2-11) % Eos % (Auto) 1.2 (0-4) % Baso % (Auto) 0.9 (0-2) % Lymph # (Auto) 2.0 (1.2-4.9) X10*3/uL [place] # (Auto) 0.8 (0.1-1.2) X10*3/uL Eos # (Auto) 0.1 (0.0-0.4) X10*3/uL Baso # (Auto) 0.1 (0.0-0.2) X10*3/uL Abs Immat Gran (auto) 0.02 (0.00-0.03) X10*3/uL Absolute Neuts (auto) 4.0 (2.0-8.3) x10*3/uL Absolute Nucleated RBC 0.000 (0.0-0.012) X10*3/uL Nucleated RBC % (auto) 0.0 (0.0-0.2) /100WBC D-Dimer High Sensitivty 236 NG/ML Sodium 137 (135-145) mmol/L Potassium 4.3 (3.3-5.1) mmol/L Chloride 104 (96-108) mmol/L Carbon Dioxide 27 (22-29) mmol/L Anion Gap 10 L (12-20) BUN 24 H (9-16) mg/dL Creatinine 1.01 (0.5-1.4) mg/dL Estim Creat Clear Calc TNP Estimated GFR 53 Random Glucose 95 (60-115) mg/dL Calcium 8.8 (8.4-10.2) mg/dL Total Bilirubin 0.3 (0.0-1.0) mg/dL AST 28 (5-31) U/L ALT 17 (0-31) U/L Alkaline Phosphatase 75 (39-117) U/L Troponin I High Sens < 2.7 < 2.7 (<3.5-17.0) ng/L Total Protein 7.6 (6.5-8.0) g/dL Albumin 4.1 (3.5-5.0) g/dL Urine Color Yellow Urine Appearance Clear Urine pH 6.0 (5.0-9.0) Ur Specific [place] 1.015 (1.005-1.025) Urine Protein Negative (Neg-Trace) mg/dL Urine Glucose (UA) Negative (Negative) mg/dL Urine Ketones Negative (Negative) mg/dL Urine Blood Negative (Negative) Urine Nitrite Negative (Negative) Ur Leukocyte Esterase Moderate (2+) H (Negative) Urine RBC 0-2 (0-2) /HPF Urine WBC 11-20 H (0-5) /HPF Ur Squamous Epith Cells 0-2 (0-2) /HPF Urine Bacteria None Seen (None Seen) Hyaline Casts 0-2 (0-2) /LPF Independent Interpretation I performed an independent interpretation of an: EKG Interpretation: I personally interpreted the EKG which reveals normal sinus rhythm, without ST-elevation/depression, T-wave abnormality, lengthened QT Vent. Rate : 73 BPM Atrial Rate : 73 BPM P-R Int : 176 ms QRS Dur : 96 ms QT Int : 394 ms P-R-T Axes : 31 -21 -1 degrees QTcB Int : 434 ms Normal sinus rhythm Minimal voltage criteria for LVH, may be normal variant ( Maycol product ) Borderline ECG When compared with ECG of 26-Jul-2025 08:32, Criteria for Inferior infarct are no longer Present Radiology Impression Discussion of test interpretation with radiology: I have reviewed the radiologist's reading. Radiologist Impression: CTA chest FINDINGS: Main pulmonary artery, its main left and right pulmonary branches demonstrated normal patency without gross intraluminal filling defects. There is questionable intraluminal filling defects within the subsegmental pulmonary branches to the right lower lung lobe. No gross aneurysm or dissection, thoracic aorta. Pulmonary patchy and confluent groundglass, bilaterally. No pleural effusion. No pneumothorax. No bronchiectasis. No honeycombing. 4 mm calcified pulmonary nodule, right lung apex. No mediastinal or perihilar lymphadenopathy. No gross pericardial effusion. The interventricular septum is normal. The main pulmonary artery diameter is similar to slightly smaller to the ascending thoracic aorta. Callus formation and the posterior aspect of the left 11th rib. Multilevel spondylosis throughout the axial skeleton without gross acute fracture or listhesis. Sternum is intact. Scapula is intact. Degenerative changes in the right acromioclavicular joint and sternoclavicular joints. CT/CT angio chest PE protocol IMPRESSION: Questionable acute pulmonary embolism, subsegmental pulmonary branches to the right lower lung lobe. No right heart strain. Mild interstitial lung edema versus pneumonitis. 4 mm granuloma, right upper lung lobe. Fleischner guidelines were followed. Electronically signed by: Buster Panchal MD 07/27/2025 09:20 AM EDT RP Dictated By: Buster Baxter MD Signed By: <Electronically signed by Buster Melendez MD in OV> 07/27/25 0920 Independent Historian Clinical information obtained from an independent historian. History obtained from or confirmed by: EMS External Record Review External record reviewed: Inpatient record, Office record and Outpatient record Chronic Conditions Patient?s care impacted by: Hypertension and Other (HLD, anxiety, neurocognitive disorder, arthritis, vertigo, dementia, hemorrhoids, SVT, CKD) Social Determinants Patient?s care significantly limited by Social Determinants of Health including: Other Social Determinant of Health Discharge Plan Discharge Clinical Impression: Pulmonary embolism, UTI (urinary tract infection) Patient Disposition: Home, Self-Care Instructions: Pulmonary Embolism (ED), Blood Thinners (ED) Additional Instructions: You were evaluated in the emergency department today for chest pain. Your CTA chest revealed a possible pulmonary embolism. You are being started on anticoagulation medication. You will take 10 mg of apixaban twice daily for the 1st 7 days, and then 5 mg twice daily until you follow up with [facility]. You were given your 1st dose here in the department. Please take additional dose before bedtime. This medication puts you at risk for bleeding. Please do not take any NSAIDS such as ibuprofen, aleve, motrin, naproxen while on this medication as it increases your risk of bleeding. You need to follow up with your primary care doctor and [facility] vascular [facility]. You need to call thier office as they will not call you. Please return to the emergency department if you experience chest pain, shortness of breath, fevers over 100.4?, difficulty breathing, falls, or any new/worsening/concerning symptoms. [facility]- Call this number to get established with the vascular doctors. You need management of your new anticoagulation prescriptions. [phone] Prescriptions: New apixaban 5 mg tablet See Rx Instructions .ROUTE .COMPLEX Qty: 74 0RF Rx Instructions: Take 2 tablets (10mg) twice daily for the first 7 days THEN Take 1 tablet (5mg) twice daily for the remainder of the prescription. No Action metoprolol succinate 50 mg tablet extended release 24 hr 50 mg PO DAILY Qty: 90 2RF valsartan 160 mg tablet 160 mg PO QPM Qty: 90 1RF mirtazapine 45 mg Tablet 45 mg PO BEDTIME omeprazole 20 mg Tablet,Delayed Release (Dr/Ec) 20 mg PO DAILY@0630 fluticasone propionate [Flonase Allergy Relief] 50 mcg/actuation spray,suspension 2 spray intranasal DAILY Qty: 16 0RF Rx Instructions: administer into each nostril hydroxyzine HCl 25 mg tablet 25 mg PO TID PRN (Reason: anxiety) Qty: 6 0RF hydroxyzine HCl 25 mg tablet 25 mg PO TID PRN (Reason: anxiety) Qty: 20 0RF miconazole nitrate 2 % cream 1 appl topical BID Qty: 28 0RF azithromycin [Zithromax] 250 mg tablet 250 mg PO DAILY 4 Days Qty: 4 0RF Rx Instructions: start on day 2 of therapy clonazepam 0.5 mg tablet 0.5 mg PO DAILY Qty: 4 0RF meclizine 12.5 mg tablet 12.5 mg PO TID PRN (Reason: dizziness or vertigo) Qty: 30 0RF trazodone 50 mg tablet 50 mg PO BEDTIME ferrous sulfate [FeroSul] 325 mg (65 mg iron) tablet 325 mg PO DAILY diphenhydramine HCl [Lou-Dryl] 25 mg tablet 25 mg PO BEDTIME PRN (Reason: itch) bisacodyl 5 mg tablet,delayed release (DR/EC) 5 mg PO DAILY PRN (Reason: constipation) rosuvastatin 20 mg tablet 20 mg PO BEDTIME aspirin 81 mg tablet,delayed release (DR/EC) 81 mg PO QAM multivitamin Tablet 1 tab PO QAM melatonin 10 mg tablet extended release 10 mg PO BEDTIME PRN (Reason: Insomnia) cholecalciferol (vitamin D3) 25 mcg (1,000 unit) tablet 25 mcg PO DAILY ondansetron 4 mg tablet,disintegrating 4 mg PO Q6H PRN (Reason: nausea and vomiting) Qty: 10 0RF acetaminophen 500 mg tablet 500 mg PO Q8H PRN (Reason: pain) zolpidem 5 mg tablet 5 mg PO BEDTIME PRN (Reason: Insomnia) ipratropium bromide 21 mcg (0.03 %) spray,non-aerosol 2 spray intranasal BID clonazepam 0.5 mg Tablet 0.5 mg PO TID Qty: 180 0RF gabapentin 100 mg Capsule 100 mg PO TID Qty: 180 0RF nitrofurantoin monohyd/m-cryst [Macrobid] 100 mg capsule 100 mg PO Q12H 3 Days Qty: 6 0RF Rx Instructions: must administer with a meal/food miconazole nitrate [Monistat 7] 2 % cream 1 appful vaginal BEDTIME 7 Days Qty: 45 0RF ofloxacin 0.3 % drops 10 drp otic (ears) DAILY 7 Days Qty: 5 0RF docusate sodium [Col-Rite] 100 mg capsule 200 mg PO BID Qty: 30 0RF polyethylene glycol 3350 [ClearLax] 17 gram/dose powder 17 g PO Q8H Qty: 238 0RF Advanced Healing (Petrolatum) 41 % ointment 1 appl topical BID PRN (Reason: irritated skin) Qty: 50 0RF docusate sodium [Colace] 100 mg capsule 200 mg PO BID Qty: 20 0RF polyethylene glycol 3350 [Miralax] 17 gram/dose powder 17 g PO BID Qty: 119 0RF simethicone 180 mg capsule 180 mg PO BID PRN (Reason: abdominal distention) Qty: 14 0RF acetaminophen 500 mg tablet 500 mg PO Q6H PRN (Reason: fever or pain) Qty: 30 0RF meclizine 12.5 mg tablet 12.5 mg PO TID PRN (Reason: vertigo) 5 Days Qty: 20 0RF ibuprofen 200 mg tablet 200 mg PO Q6H PRN (Reason: pain) Qty: 20 0RF sertraline 100 mg tablet 100 mg PO DAILY amlodipine 10 mg tablet 10 mg PO DAILY meclizine 25 mg tablet 25 mg PO DAILY PRN Referrals: [facility] [Provider Group, Vascular Surgery] Name,MD Nitin [Primary Care Provider, Internal Medicine] Print Language: Greek
[2025-07-27 07:39] VITALS: BP 137/75; PULSE 69; RESP 18; O2SAT 96
[2025-07-27 07:54] LABS: MANUAL DIFF FLAG NO
[2025-07-27 07:56] LABS: Hematocrit 31.6 % (37.0-47.0); Hemoglobin 10.8 g/dl (12.0-16.0); Imm Gran Abs Auto 0.02 X10*3/uL (0.00-0.03); Imm Gran Pct Auto 0.3 % (0.0-0.4); Lymphocytes Absolute Auto 2.0 X10*3/uL (1.2-4.9); Mean Corpuscular HGB Conc 34.2 g/dl (31.0-35.0); Mean Corpuscular Hemoglobin 28.3 pg (27.0-33.0); Mean Corpuscular Volume 82.9 fL (80.0-98.0); NRBC Abs Auto 0.000 X10*3/uL (0.0-0.012); NRBC Pct Auto 0.0 /100WBC (0.0-0.2); Platelet Count 256 X10*3/uL (160-400); Red Blood Count 3.81 X10*6/uL (4.20-5.50); White Blood Count 6.9 X10*3/uL (4.8-10.8)
[2025-07-27 07:59] VITALS: BP 132/72; PULSE 72; RESP 14; TEMP 36.9; O2SAT 93
--- NOTE | 2025-07-27 08:04 | PC.NURSE ---
BIBA for stabbing chest pain. Pt reports heavy. Pain 08/19. Pt requesting something for pain, administered morphine and ondansetron per order. Pt now resting quietly.
[2025-07-27 08:10] LABS: D Dimer High Sensitivity 236 NG/ML
[2025-07-27 08:11] LABS: Alanine Aminotransferase 17 U/L (0-31); Albumin Level 4.1 g/dL (3.5-5.0); Alkaline Phosphatase 75 U/L (39-117); Anion Gap 10 (12-20); Aspartate Amino Transferase 28 U/L (5-31); Blood Urea Nitrogen 24 mg/dL (9-16); Calcium 8.8 mg/dL (8.4-10.2); Carbon Dioxide 27 mmol/L (22-29); Chloride 104 mmol/L (96-108); Estimated Glomerular Filt Rate 53; Potassium 4.3 mmol/L (3.3-5.1); Sodium 137 mmol/L (135-145); Total Protein 7.6 g/dL (6.5-8.0)
[2025-07-27 08:26] LABS: Troponin-I High Sensitivity < 2.7 ng/L (<3.5-17.0)
[2025-07-27] MEDS: iohexoL 350 MG/ML 100 ML INFUS..BTL 65 ML IV (09:04)
[2025-07-27 09:42] LABS: Appearance Urine Clear; PH 6.0 (5.0-9.0)
[2025-07-27 09:43] LABS: Glucose Urine UA Negative (Negative); Specific Gravity - Urine 1.015 (1.005-1.025); UMIC TRIGGER UACC YES
[2025-07-27 09:45] LABS: UACC Culture Trigger YES
--- OUTSIDE RECORDS SUMMARY | 2025-07-27 09:51 | XMS_ITS | Clinical Summary ---
Author Organization [facility] Facility Address [address] [address] Care Team Providers Care Headliner Installer Name Role Phone Name, Nitin PIKE Primary Care Provider [phone] Allergies Active Allergy Reactions Criticality Noted Date [...] patient's age to complete this topic [place] [address] MCR ([id number]) SARA PHILLIPS [phone] [facility] MCR ([id number]) Care Teams Headliner Installer Relationship Specialty Start Date End Date Name, MD Nitin [address] [place] [id number] PCP - General Internal Medicine 10/15/22
--- OUTSIDE RECORDS SUMMARY | 2025-07-27 09:51 | XMS_ITS | Encounter Summary ---
Author Organization [facility] Address [address] [place] [address] Care Team Providers Care Au Pair Name Role Phone Name, Nitin PIKE Primary Care Provider [phone] Reason for Visit * Reason Comments Med Refill Encounter Details Date Type Department Care Team ([facility] st Contact Info) Description 04/01/2024 Refill [facility] [address] [place], [place] [id number] Name, MD Nitin [address] [place] [address] Rash Social History Tobacco Use Types Packs/Day [...] Description 08/09/2025 11:15 AM EDT Office Visit [facility] [address] [place] [id number] Name, MD Nitin [address] [place] [address] documented as of this encounter Visit Diagnoses Diagnosis Rash Rash and other nonspecific skin eruption documented in this encounter Additional Health Concerns Assessment Noted Time PHQ-9 Depression Total Score: 6 02/13/20 24 9:14 AM EDT documented as of this encounter Care Teams Au Pair Relationship Specialty Start Date End Date NameNitin MD [address] [place] [id number] PCP - General Family Medicine 08/26/17 [facility] 09/01/24 documented as of this encounter
--- OUTSIDE RECORDS SUMMARY | 2025-07-27 09:51 | XMS_ITS | Encounter Summary ---
Author Organization [employer] Address 75 [facility] 7[address] [place] [address] Care Team Providers Care Senior Energy Trader Name Role Phone Name, Nitin PIKE Primary Care Provider Reason for Visit * Reason Onset Date Comments ER Follow-up 05/04/2024 Encounter Details Date Type Department Care Team ([facility] Contact Info) Description 05/04/2024 Telephone [facility] [address] [place], [place] [phone] Name, MD Nitin [address] [place] [address] ER Follow-up Social History Tobacco Use Types [...] 11:01 AM EDT T/C to pt. Through [employer] id - [id number] for below message, No answer. LVM to call back [phone] . * Telephone Encounter - Adithya Solorzano - 05/04/2024 9:35 AM EDT Noreen with [facility] calling to report ED visit on : Date: 04/28 Hospital: [facility] Seen for: UTI, Nausea, Rash. Noreen advised will be forwarding message to team nurses. Please contact pt at [phone]. documented in this encounter Plan of Treatment Upcoming Encounters Date Type Department Care Team (Late st Contact Info) Description 08/09/2025 11:15 AM EDT Office Visit [facility] [address] [place] [address] Name, MD Nitin [address] [place] [address] documented as of this encounter Visit Diagnoses Not on filedocumented in this encounter Additional Health Concerns Assessment Noted Time PHQ-9 Depression Total Score: 6 02/13/20 24 9:14 AM EDT documented as of this encounter Care Teams Senior Energy Trader Relationship Specialty Start Date End Date Name, MD Nitin [address] [place] [address] PCP - General Family Medicine 08/26/17 [facility] 09/01/24 documented as of this encounter
--- OUTSIDE RECORDS SUMMARY | 2025-07-27 09:51 | XMS_ITS | Clinical Summary ---
Author Organization [facility] Address [address] [place] [address] Phone Care Team Providers Care Test Data Developer Name Role Phone Physician, No Pcp Primary [...] mmol/L LAB CHEMISTRY METHOD 09/22/2024 3:15 AM [facility] Potassium 4.6 3.5 - 5.5 mmol/L LAB CHEMISTRY METHOD 09/22/2024 3:15 AM [facility] Chloride 98 96 - 110 mmol/L LAB CHEMISTRY METHOD 09/22/2024 3:15 AM [facility] CO2 28 21 - 32 mmol/L LAB CHEMISTRY METHOD 09/22/2024 3:15 AM [facility] Anion Gap 6 3 - 11 LAB CHEMISTRY METHOD 09/22/2024 3:15 AM [facility] Glucose 119(H) 70 - 100 mg/dL LAB CHEMISTRY METHOD 09/22/2024 3:15 AM [facility] BUN 25 5 - 25 mg/dL LAB CHEMISTRY METHOD 09/22/2024 3:15 AM [facility] Creatinine 1.18(H) 0.50 - 1.10 mg/dL LAB CHEMISTRY METHOD 09/22/2024 3:15 AM [facility] eGFR 47(L) >=60 mL/min/1. 73m2 LAB CHEMISTRY METHOD 09/22/2024 3:15 AM [facility] Comment:Calculation based on the Chronic Kidney Disease Epidemiology Collaboration (CKD-EPI) equation refit without adjustment for race. BUN/Creatinine Ratio 21.2 LAB CHEMISTRY METHOD 09/22/2024 3:15 AM [facility] Calcium 9.3 8.5 - 10.5 mg/dL LAB CHEMISTRY METHOD 09/22/2024 3:15 AM [facility] AST (SGOT) 37 10 - 42 unit/L LAB CHEMISTRY METHOD 09/22/2024 3:15 AM [facility] ALT (SGPT) 25 10 - 60 unit/L LAB CHEMISTRY METHOD 09/22/2024 3:15 AM [facility] Alkaline Phosphatase 77 42 - 121 unit/L LAB CHEMISTRY METHOD 09/22/2024 3:15 AM [facility] Total Protein 8.0 6.0 - 8.0 g/dL LAB CHEMISTRY METHOD 09/22/2024 3:[address] [facility] Albumin 4.2 3.2 - 5.0 g/dL LAB CHEMISTRY METHOD 09/22/2024 3:[address] [facility] Total Bilirubin 0.4 0.0 - 1.4 mg/dL LAB CHEMISTRY METHOD 09/22/2024 3:[address] [facility] Blood Venous blood specimen / Unknown Venipuncture / Unknown 09/22/2024 2:28 AM EST 09/22/2024 2:31 AM EST Paul RUIZ LAB BLOOD ORDERABLES Final Resul t [facility] [address] [place] [address], from Last 3 Months or Most Recently Relevant to Health Maintenance Insurance [facility] MEDICARE Member Subscriber Plan / Payer (Ef fective 2021-Present) Name:Noreen Wing Relation to Subscriber:Self Name:Noreen Wing Payer ID:[id number] Group ID:[id number] Type:Not on file Address: [place] [address] [address] Care Teams Test Data Developer Relationship Specialty Start Date End Date Physician, No Pcp PCP - General 09/22/24
--- OUTSIDE RECORDS SUMMARY | 2025-07-27 09:51 | XMS_ITS | Encounter Summary ---
Author Organization [employer] Address [address] [facility] [address] [place] [address] Care Team Providers Care Special Education Professional Name Role Phone Name, Nitin PIKE Primary Care Provider [phone] Reason for Visit * Reason Onset Date Comments Hospital Follow-up 10/20/2024 Encounter Details Date Type Department Care Team ([facility] Contact Info) Description 10/20/2024 Telephone [facility] [address] [place], [place] [phone] Name, MD Nitin [address] [place] [address] Hospital Follow-up Social History Tobacco Use Types [...] from pt requesting a HDF appt. Hospital: [facility] [place] Date of admission: 10/17 Discharge date: 10/19 Diagnosed: High Blood Pressure and Fever Contact pt at [phone] *Send message to [facility] Coordinators documented in this encounter Plan of Treatment Upcoming Encounters Date Type Department Care Team (Late st Contact Info) Description 08/09/2025 11:15 AM EDT Office Visit [facility] [address] [place] [address] Name, MD Nitin [address] [place] [address] documented as of this encounter Visit Diagnoses Not on filedocumented in this encounter Additional Health Concerns Assessment Noted Time PHQ-9 Depression Total Score: 6 02/13/20 24 9:14 AM EDT documented as of this encounter Care Teams Special Education Professional Relationship Specialty Start Date End Date Name, MD Nitin [address] [place] [address] PCP - General Family Medicine 08/26/17 [facility] 09/01/24 documented as of this encounter
--- OUTSIDE RECORDS SUMMARY | 2025-07-27 09:51 | XMS_ITS | Encounter Summary ---
Author Organization [employer] Address [address] [facility] [address] [place] [address] Care Team Providers Care Online Advertising Director Name Role Phone Name, Nitin PIKE Primary Care Provider [phone] Encounter Details Date Type Department Care Team ([facility] st Contact Info) Description 07/25/2025 Refill [facility] [address] [place], [place] [phone] Name, MD Nitin [address] [place] [address] Social History Tobacco Use Types Packs/Day Years [...] 11:15 AM EDT Office Visit [facility] [address] [place] [address] NameNitin MD [address] [place] [address] documented as of this encounter Visit Diagnoses Not on filedocumented in this encounter Additional Health Concerns Assessment Noted Time PHQ-9 Depression Total Score: 3 04/29/20 25 9:41 AM EDT documented as of this encounter Care Teams Online Advertising Director Relationship Specialty Start Date End Date NameNitin MD [address] [place] [address] PCP - General Family Medicine 08/26/17 [facility] 09/01/24 documented as of this encounter
--- OUTSIDE RECORDS SUMMARY | 2025-07-27 09:51 | XMS_ITS | Encounter Summary ---
Author Organization [employer] Address [address] [facility] [address] [place] [address] Care Team Providers Care Enterprise Application Administrator Name Role Phone Name, Nitin PIKE Primary Care Provider [phone] Reason for Visit * Reason Comments Med Refill Encounter Details Date Type Department Care Team (Late st Contact Info) Description 04/20/2025 Refill [facility] [address] [place] [address] Zechariah Cheung MD [address] [place] [address] Allergic rhinitis, unspecified seasonality, unspecified trigger Social [...] Office Visit [facility] [address] [place] [address] NameNitin MD [address] [place] [address] documented as of this encounter Visit Diagnoses Diagnosis Allergic rhinitis, unspecified seasonality, unspecified trigger documented in this encounter Additional Health Concerns Assessment Noted Time PHQ-9 Depression Total Score: 6 02/13/20 24 9:14 AM EDT documented as of this encounter Care Teams Enterprise Application Administrator Relationship Specialty Start Date End Date Nitin Echevarria MD [address] [place] [address] PCP - General Family Medicine 08/26/17 [facility] 09/01/24 documented as of this encounter
--- OUTSIDE RECORDS SUMMARY | 2025-07-27 09:51 | XMS_ITS | Encounter Summary ---
Author Organization [employer] Address 75 [facility] 7[address] [place] [address] Care Team Providers Care Masseur/Masseuse Name Role Phone Name, Nitin PIKE Primary Care Provider [phone] Reason for Visit * Reason Onset Date Comments ER Follow-up 05/31/2024 Encounter Details Date Type Department Care Team ([facility] Contact Info) Description 05/31/2024 Telephone [facility] [address] [place], [place] [phone] Name, MD Nitin [address] [place] [address] ER Follow-up Social History Tobacco Use Types [...] PM EDT T/C to Pat ([facility]) [phone] for below message, no answer. LVM to call back on [phone]. * Telephone Encounter - Mleany Santos RN - 05/31/2024 1:32 PM EDT DAVID T/C to pt. Through [employer] id - [id number] for below message, pt. Had recent fall and ED visit at [facility]. RN will request GRACE piedra from [facility]. Pt. Is doing good, states I am tired andsleeping. Pt. Dose not has any question or concern right now. Pt. Already has HDF apt. Schedule on 06/10/2024. Pt. Advised to give call to [facility] if any questions or concerns. Pt. Verbally agreed and understood. Please review and advise if needed. * Telephone Encounter - Adithya Solorzano - 05/31/2024 12:50 PM EDT Patient calling to report ED visit on : Date: 05/[address] [facility] Seen for: Fall, Back Pain Pat stated pt is requesting a sooner apt with pcp due to recent ER visit. PT is also requesting order for PT services for to go along with [facility]. documented in this encounter Plan of Treatment Upcoming Encounters Date Type Department Care Team (Late st Contact Info) Description 08/09/2025 11:15 AM EDT Office Visit [facility] [address] [place] [address] Name, MD Nitin [address] [place] [address] documented as of this encounter Visit Diagnoses Not on filedocumented in this encounter Additional Health Concerns Assessment Noted Time PHQ-9 Depression Total Score: 6 02/13/20 24 9:14 AM EDT documented as of this encounter Care Teams Masseur/Masseuse Relationship Specialty Start Date End Date Name, MD Nitin [address] [place] [address] PCP - General Family Medicine 08/26/17 [facility] 09/01/24 documented as of this encounter
--- OUTSIDE RECORDS SUMMARY | 2025-07-27 09:51 | XMS_ITS | Encounter Summary ---
Author Organization [employer] Address [address] [facility] [address] [place] [address] Care Team Providers Care Mission Commander Name Role Phone Name, Nitin PIKE Primary Care Provider [phone] Reason for Visit * Reason Onset Date Comments Med Refill 11/08/2024 Encounter Details Date Type Department Care Team ([facility] st Contact Info) Description 11/08/2024 Telephone [facility] MED[facility]INE [address] [place], [place] [phone] Name, MD Nitin [address] [place] [address] Med Refill Social History Tobacco Use Types [...] 5 MG tablet To be sent to: [facility] - [place], [place] - [address] [facility] documented in this encounter Plan of Treatment Upcoming Encounters Date Type Department Care Team ([facility] st Contact Info) Description 08/09/2025 11:15 AM EDT Office Visit [facility] [address] [place] [address] Name, MD Nitin [address] [place] [address] documented as of this encounter Visit Diagnoses Not on filedocumented in this encounter Additional Health Concerns Assessment Noted Time PHQ-9 Depression Total Score: 6 02/13/20 24 9:14 AM EDT documented as of this encounter Care Teams Mission Commander Relationship Specialty Start Date End Date Name, MD Nitin [address] [place] [address] PCP - General Family Medicine 08/26/17 [facility] 09/01/24 documented as of this encounter
--- OUTSIDE RECORDS SUMMARY | 2025-07-27 09:51 | XMS_ITS | Encounter Summary ---
Author Organization [employer] Address [address] [facility] 7t [place] [address] Care Team Providers Care Track Oiler Name Role Phone Name, Nitin PIKE Primary Care Provider [phone] Encounter Details Date Type Department Care Team (Late st Contact Info) Description 07/27/2025 Orders Only [facility] External Provider, [facility] Social History Tobacco Use Types Packs/Day Years [...] 08/09/2025 11:15 AM EDT Office Visit [facility] [address] [place] [address] Name, MD Nitin [address] [place] [address] documented as of this encounter Procedures Procedure Name Priority Date/Time Associated Diagnosis Comments URINALYSIS, COMPLETE, WITH REFLEX TO CULTURE Routine 07/27/2025 9:35 AM EDT CTA CHEST PE PROTOCAL Routine 07/27/2025 8:51 AM EDT documented in this encounter Results * (ABNORMAL) Urinalysis, Complete, with Reflex to Culture (07/27/2025 9:35 AM EDT) Color Urine Yellow [facility] Appearance Urine Clear [facility] PH 6.0 5.0 - 9.0 [facility] Glucose Urine UA Negative Negative mg/dL [facility] Urine Blood Negative Negative [facility] Specific [place] - Urine 1.015 1.005 - 1.025 [facility] Urine Protein Negative Neg-Trace mg/dL [facility] Urine Ketones Negative Negative mg/dL [facility] Nitrite Urine Negative Negative [facility] Leukocyte Esterase Urine Moderate (2+)(A) Negative [facility] RBC Urine 0-2 0 - 2 /HPF [facility] Urine WBC 11-20(A) 0 - 5 /HPF [facility] Urine Squamous Epithelial Cell 0-2 0 - 2 /HPF [facility] Urine Bacteria None Seen None Seen [facility] Hyaline Casts, Urine 0-2 0 - 2 /LPF [facility] 07/27/2025 9:35 AM EDT 07/27/2025 9:40 AM EDT Narrative [facility] - 07/27/2025 9:45 AM EDT Urine, Clean Catch us Generic External Data Provider LAB URINE ORDERAB LES Final Result Performing Organization Address City/State/RUST de Phone Number [facility] [address] [place] [phone] * CTA Chest PE Protocal (07/27/2025 8:51 AM EDT) Anatomical Region Laterality Modality Body, Chest Computed Tomogra phy 07/27/2025 8:51 AM EDT Narrative 07/27/2025 9:23 AM EDT [address] [address] [address] Scan Report Signed Patient: Noreen Wing MR#: [id number] : 1945 Acct:[id number] Age/Sex: 79 / F ADM Date: 07/27/25 Loc: .ED Attending Dr: Ordering Physician: Jami Cortés PA-C Date of Service: 07/27/25 Procedure(s): CT angio chest PE protocol Accession Number(s): [id number] cc: Jami Cortés PA-C; Name,Nitin PIKE Report Number: [id number]: Total DLP = 0.00 mGy-cm Reason for Exam: elevated D dimer EXAMINATION: CT ANGIOGRAM CHEST CLINICAL INFORMATION: Elevated d-dimer. COMPARISON: July 25, 2019. TECHNIQUE: Multiple axial images were obtained through the chest after the administration of 65 mL of Omnipaque 350 intravenous contrast. Extensive vascular post-processing including two-dimensional and three-dimensional reformatted images were created and reviewed on an independent workstation. SmartPrep technique This CT examination was performed using dose optimization techniques as appropriate, variously including the following: *Automated exposure control *Adjustment of mA and/or kV according to patient size (this includes techniques or standardized protocols for targeted exams where dose is matched to indication/reason for exam; i.e. extremities or head) *Use of iterative reconstruction technique DLP: 279 mGy centimeter. FINDINGS: Main pulmonary artery, its main left and right pulmonary branches demonstrated normal patency without gross intraluminal filling defects. There is questionable intraluminal filling defects within the subsegmental pulmonary branches to the right lower lung lobe. No gross aneurysm or dissection, thoracic aorta. Pulmonary patchy and confluent groundglass, bilaterally. No pleural effusion. No pneumothorax. No bronchiectasis. No honeycombing. 4 mm calcified pulmonary nodule, right lung apex. No mediastinal or perihilar lymphadenopathy. No gross pericardial effusion. The interventricular septum is normal. The main pulmonary artery diameter is similar to slightly smaller to the ascending thoracic aorta. Callus formation and the posterior aspect of the left 11th rib. Multilevel spondylosis throughout the axial skeleton without gross acute fracture or listhesis. Sternum is intact. Scapula is intact. Degenerative changes in the right acromioclavicular joint and sternoclavicular joints. CT/CT angio chest PE protocol IMPRESSION: Questionable acute pulmonary embolism, subsegmental pulmonary branches to the right lower lung lobe. No right heart strain. Mild interstitial lung edema versus pneumonitis. 4 mm granuloma, right upper lung lobe. Fleischner guidelines were followed. Electronically signed by: Buster Panchal MD 07/27/2025 09:20 AM EDT Dictated By: Buster Baxter MD Signed By: <Electronically signed by Buster Melendez MD in OV> 07/27/25919 DD/ 0851 TD/TT: 07/27/25 09 Metal Spraying Machine Operator: Procedure Note Donotuseinterpreter, Image - 07/27/[address] [address] [address] Scan Report Signed Patient: Jennifer Wing#: [id number] : 3Acct:[id number] Age/Sex: 79 / FADM Date: 07/27/25 Loc: HO.ED Attending Dr: Ordering Physician: Jami Cortés PA-C Date of Service: 07/27/25 Procedure(s): CT angio chest PE protocol Accession Number(s): [id number] cc: Jami Cortés PA-C; Name,Nitin PIKE Report Number: [id number]: Total DLP = 0.00 mGy-cm Reason for Exam: elevated D dimer EXAMINATION: CT ANGIOGRAM CHEST CLINICAL INFORMATION: Elevated d-dimer. COMPARISON: July 25, 2019. TECHNIQUE: Multiple axial images were obtained through the chest after the administration of 65 mL of Omnipaque 350 intravenous contrast. Extensive vascular post-processing including two-dimensional and three-dimensional reformatted images were created and reviewed on an independent workstation. SmartPrep technique This CT examination was performed using dose optimization techniques as appropriate, variously including the following: *Automated exposure control *Adjustment of mA and/or kV according to patient size (this includes techniques or standardized protocols for targeted exams where dose is matched to indication/reason for exam; i.e. extremities or head) *Use of iterative reconstruction technique DLP: 279 mGy centimeter. FINDINGS: Main pulmonary artery, its main left and right pulmonary branches demonstrated normal patency without gross intraluminal filling defects. There is questionable intraluminal filling defects within the subsegmental pulmonary branches to the right lower lung lobe. No gross aneurysm or dissection, thoracic aorta. Pulmonary patchy and confluent groundglass, bilaterally. No pleural effusion. No pneumothorax. No bronchiectasis. No honeycombing. 4 mm calcified pulmonary nodule, right lung apex. No mediastinal or perihilar lymphadenopathy. No gross pericardial effusion. The interventricular septum is normal. The main pulmonary artery diameter is similar to slightly smaller to the ascending thoracic aorta. Callus formation and the posterior aspect of the left 11th rib. Multilevel spondylosis throughout the axial skeleton without gross acute fracture or listhesis. Sternum is intact. Scapula is intact. Degenerative changes in the right acromioclavicular joint and sternoclavicular joints. CT/CT angio chest PE protocol IMPRESSION: Questionable acute pulmonary embolism, subsegmental pulmonary branches to the right lower lung lobe. No right heart strain. Mild interstitial lung edema versus pneumonitis. 4 mm granuloma, right upper lung lobe. Fleischner guidelines were followed. Electronically signed by: Buster Panchal MD 07/27/2025 09:20 AM EDT RP Dictated By: Buster Baxter MD Signed By: <Electronically signed by Buster Melendez MDin OV> 07/27/25919 DD/ 0 TD/TT: 07/27/25904 Metal Spraying Machine Operator: [facility] External Provider IMG CT PROCEDURES Edited Result - Final documented in this encounter Visit Diagnoses Not on filedocumented in this encounter Additional Health Concerns Assessment Noted Time PHQ-9 Depression Total Score: 3 04/29/20 9:41 AM EDT documented as of this encounter Care Teams Track Oiler Relationship Specialty Start Date End Date Name, MD Nitin [address] [place] [address] PCP - General Family Medicine 08/26/17 [facility] 09/01/24 documented as of this encounter
--- OUTSIDE RECORDS SUMMARY | 2025-07-27 09:51 | XMS_ITS | Encounter Summary ---
Author Organization [employer] Address 75 [facility] 7[address] [place] [address] Care Team Providers Care Bicycle Inspector Name Role Phone Name, Nitin PIKE Primary Care Provider [phone] Reason for Visit * Reason Comments Med Refill Encounter Details Date Type Department Care Team (Late st Contact Info) Description 07/25/2025 Refill [facility] [address] [place], [place] [phone] Name, MD Nitin [address] [place] [address] Social History Tobacco Use Types Packs/Day Years [...] 11:15 AM EDT Office Visit [facility] MEDICINE [address] [place] [address] NameNitin MD [address] [place] [address] documented as of this encounter Visit Diagnoses Not on filedocumented in this encounter Additional Health Concerns Assessment Noted Time PHQ-9 Depression Total Score: 3 04/29/20 25 9:41 AM EDT documented as of this encounter Care Teams Bicycle Inspector Relationship Specialty Start Date End Date NameNitin MD [address] [place] [address] PCP - General Family Medicine 08/26/17 [facility] 09/01/24 documented as of this encounter
--- OUTSIDE RECORDS SUMMARY | 2025-07-27 09:52 | XMS_ITS | Encounter Summary ---
Author Organization [employer] Address 75 [facility] 7[address] [place] [address] Care Team Providers Care Transcriber Name Role Phone Name, Nitin PIKE Primary Care Provider [phone] Reason for Visit * Reason Comments Med Refill Encounter Details Date Type Department Care Team (Late st Contact Info) Description 01/09/2025 Refill [facility] [address] [place], [place] [phone] Name, MD Nitin [address] [place] [address] Hypertension, unspecified type Social History Tobacco Use [...] Description 08/09/2025 11:15 AM EDT Office Visit [facility] MEDICINE [address] [place] [address] NameNitin MD [address] [place] [address] documented as of this encounter Visit Diagnoses Diagnosis Hypertension, unspecified type documented in this encounter Additional Health Concerns Assessment Noted Time PHQ-9 Depression Total Score: 6 02/13/20 9:14 AM EDT documented as of this encounter Care Teams Transcriber Relationship Specialty Start Date End Date NameNitin MD [address] [place] [address] PCP - General Family Medicine 08/26/17 [facility] 09/01/24 documented as of this encounter
--- OUTSIDE RECORDS SUMMARY | 2025-07-27 09:52 | XMS_ITS | Encounter Summary ---
Author Organization [employer] Address 75 [facility] 7t [place] [address] Care Team Providers Care Hall Manager Name Role Phone Name, Nitin PIKE Primary Care Provider [phone] Reason for Visit * Reason Onset Date Comments triage 12/18/2022 Encounter Details Date Type Department Care Team ([facility] st Contact Info) Description 12/18/2022 Telephone [facility] MED[facility]INE [address] [place], [place] [phone] Name, MD Nitin 230 [place] [address] triage Social History Tobacco Use Types Packs/Day [...] 12/18/2022 2:35 PM EST Called pt. Via [employer] orchestra leader [phone] Eduardo. Pt. States that she has a [...] phone. Please reach out to pt. With Albanian speaking another time to see what her needs may be from the PCP. * Telephone Encounter - Anaid iVnson - 12/18/2022 12:30 PM EST Symptom: Earache Outcome: Schedule a same-day appointment or talk to a nurse or provider today Reason: No high acuity concerns reported by caller The caller accepted this outcome documented in this encounter Plan of Treatment Upcoming Encounters Date Type Department Care Team (Late st Contact Info) Description 08/09/2025 11:15 AM EDT Office Visit [facility] [address] [place] [address] Name, MD Nitin [address] [place] [address] documented as of this encounter Visit Diagnoses Not on filedocumented in this encounter Care Teams Hall Manager Relationship Specialty Start Date End Date Name, MD Nitin [address] [place] [address] PCP - General Family Medicine 08/26/17 [facility] 09/01/24 documented as of this encounter
--- OUTSIDE RECORDS SUMMARY | 2025-07-27 09:52 | XMS_ITS | Encounter Summary ---
Author Organization [employer] Address 75 [facility] 7[address] [place] [address] Care Team Providers Care Medical Reception Specialist Name Role Phone Name, Nitin PIKE Primary Care Provider [phone] Reason for Visit * Reason Onset Date Comments Verbal Orders 12/15/2023 Encounter Details Date Type Department Care Team ([facility] st Contact Info) Description 12/15/2023 Telephone [facility] 230 [place], [place] [phone] Name, MD Nitin 230 [place] [address] Verbal Orders Social History Tobacco Use Types [...] 12:03 PM EST Tc from [facility] requesting verbal order to see pt 2 times a week for 4 weeks for Occupational Therapy, please contact [facility] at [phone] documented in this encounter Plan of Treatment Upcoming Encounters Date Type Department Care Team (Late st Contact Info) Description 08/09/2025 11:15 AM EDT Office Visit [facility] [address] [place] [address] Name, MD Nitin [address] [place] [address] documented as of this encounter Visit Diagnoses Not on filedocumented in this encounter Additional Health Concerns Assessment Noted Time PHQ-9 Depression Total Score: 12 023 9:37 AM EDT documented as of this encounter Care Teams Medical Reception Specialist Relationship Specialty Start Date End Date NameNitin MD 230 [place] [address] PCP - General Family Medicine 08/26/17 [facility] 09/01/24 documented as of this encounter
--- OUTSIDE RECORDS SUMMARY | 2025-07-27 09:52 | XMS_ITS | Encounter Summary ---
Author Organization [employer] Address 75 [facility] 7t [place] [address] Care Team Providers Care Assistant Nurse Manager Name Role Phone Name, Nitin PIKE Primary Care Provider [phone] Reason for Visit * Reason Onset Date Comments Results 08/29/2023 Encounter Details Date Type Department Care Team ([facility] st Contact Info) Description 08/29/2023 Telephone [facility] MEDICINE 230 [place], [place] [phone] Name, MD Nitin 230 [place] [address] Results Social History Tobacco Use Types Packs/Day [...] 09/01/2023 11:51 AM EDT Pt evaluated in [facility] today and is scheduled with pcp 09/03/23. * Telephone Encounter - Janette Huitron - 08/29/2023 4:06 PM EDT Tc from pt requesting a call in regards to urine results. Please contact pt at [phone] (Arabic) documented in this encounter Plan of Treatment Upcoming Encounters Date Type Department Care Team (Late st Contact Info) Description 08/09/2025 11:15 AM EDT Office Visit [facility] MEDICINE [address] [place] [address] Name, MD Nitin [address] [place] [address] documented as of this encounter Visit Diagnoses Not on filedocumented in this encounter Additional Health Concerns Assessment Noted Time PHQ-9 Depression Total Score: 12 023 9:37 AM EDT documented as of this encounter Care Teams Assistant Nurse Manager Relationship Specialty Start Date End Date NameNitin MD [address] [place] [address] PCP - General Family Medicine 08/26/17 [facility] 09/01/24 documented as of this encounter
--- OUTSIDE RECORDS SUMMARY | 2025-07-27 09:52 | XMS_ITS | Encounter Summary ---
Author Organization [employer] Address 75 [facility] 7t [place] [address] Care Team Providers Care Tobacco Farmworker Name Role Phone Name, Nitin PIKE Primary Care Provider [phone] Reason for Visit * Reason Onset Date Comments ER Follow-up 07/26/2025 Encounter Details Date Type Department Care Team ([facility] st Contact Info) Description 07/26/2025 Telephone [facility] MEDICINE 230 [place], [place] [phone] Name, MD Nitin 230 [place] [address] ER Follow-up Social History Tobacco Use Types [...] Telephone Encounter - Giuliana Villeda RN - 07/27/2025 9:49 AM EDT Pt was discharged from [facility] ED yesterday 07/26/25. Pt has since returned to the ED today with complaints of left sided chest pain and associated nausea. Pt is currently in the ED as of 07/27/25. Will task to check [facility] and status check on 07/28/25. * Telephone Encounter - Giuliana Villeda RN - 07/26/2025 10:33 AM EDT Pt currently at [facility] ED as of AM on 07/26/25. Will task to check [facility] and status check on 07/27/25. 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 Pt became very dizzy and almost fell. Security team was able to hold the patient andplace her in a wheel chair before she fell EMS was called and pt was taken to [facility]. Pt was also in the ED on Friday for similar symptoms will send task to blue team nurses for status check documented in this encounter Plan of Treatment Upcoming Encounters Date Type Department Care Team (Late st Contact Info) Description 08/09/2025 11:15 AM EDT Office Visit [facility] MEDICINE [address] [place] [address] Name, MD Nitin [address] [place] [address] documented as of this encounter Visit Diagnoses Not on filedocumented in this encounter Additional Health Concerns Assessment Noted Time PHQ-9 Depression Total Score: 3 04/29/20 25 9:41 AM EDT documented as of this encounter Care Teams Tobacco Farmworker Relationship Specialty Start Date End Date Name, MD Nitin [address] [place] [address] PCP - General Family Medicine 08/26/17 [facility] 09/01/24 documented as of this encounter
--- OUTSIDE RECORDS SUMMARY | 2025-07-27 09:52 | XMS_ITS | Encounter Summary ---
Author Organization [employer] Address 75 [facility] 7[address] [place] [address] Care Team Providers Care Medical Billing Coder Name Role Phone Name, Nitin PIKE Primary Care Provider [phone] Reason for Visit * Reason Comments Med Refill Encounter Details Date Type Department Care Team ([facility] st Contact Info) Description 06/28/2024 Refill [facility] 230 [place], [place] [phone] Mel Anguiano FNP 230 [place] [address] Social History Tobacco Use Types Packs/Day Years [...] Office Visit [facility] MEDICINE [address] [place] [address] Name, MD Nitin 230 [place] [address] documented as of this encounter Visit Diagnoses Not on filedocumented in this encounter Additional Health Concerns Assessment Noted Time PHQ-9 Depression Total Score: 6 02/13/20 24 9:14 AM EDT documented as of this encounter Care Teams Medical Billing Coder Relationship Specialty Start Date End Date Name, MD Nitin [address] [place] [address] PCP - General Family Medicine 08/26/17 [facility] 09/01/24 documented as of this encounter
--- OUTSIDE RECORDS SUMMARY | 2025-07-27 09:52 | XMS_ITS | Encounter Summary ---
Author Organization [employer] Address 75 [facility] 7t [place] [address] Care Team Providers Care Jewel Hole Finish Opener Name Role Phone Name, Nitin PIKE Primary Care Provider [phone] Reason for Visit * Reason Comments Med Refill Encounter Details Date Type Department Care Team (Late Contact Info) Description 03/02/2023 Refill [facility] MEDICINE [address] [place] [address] Karely Patiño MD [address] [place] [address] [phone] Social History Tobacco Use Types Packs/Day Years [...] Office Visit [facility] MED[facility]INE [address] [place] [address] Wale, MD Nitin [address] [place] [address] documented as of this encounter Visit Diagnoses Not on filedocumented in this encounter Care Teams Jewel Hole Finish Opener Relationship Specialty Start Date End Date Name, MD Nitin [address] [place] [address] PCP - General Family Medicine 08/26/17 [facility] 09/01/24 documented as of this encounter
--- OUTSIDE RECORDS SUMMARY | 2025-07-27 09:52 | XMS_ITS | Encounter Summary ---
Author Organization [employer] Address 75 [facility] 7t [place] [address] Care Team Providers Care Surgical Forceps Fabricator Name Role Phone Name, Nitin PIKE Primary Care Provider [phone] Encounter Details Date Type Department Care Team ([facility] Contact Info) Description 08/08/2023 Telephone [facility] MEDICINE [address] [place] [address] [phone] Name, MD Nitin [address] [place] [address] [phone] Social History Tobacco Use Types Packs/Day Years [...] 08/09/2025 11:15 AM EDT Office Visit [facility] MEDICINE [address] [place] [address] [phone] NameNitin MD [address] [place] [address] [phone] documented as of this encounter Visit Diagnoses Not on filedocumented in this encounter Additional Health Concerns Assessment Noted Time PHQ-9 Depression Total Score: 12 023 9:37 AM EDT documented as of this encounter Care Teams Surgical Forceps Fabricator Relationship Specialty Start Date End Date Name, MD Nitin [address] [place] [address] PCP - General Family Medicine 08/26/17 [facility] 09/01/24 documented as of this encounter
--- OUTSIDE RECORDS SUMMARY | 2025-07-27 09:52 | XMS_ITS | Encounter Summary ---
Author Organization [employer] Address 75 [facility] 7t [place] [address] Care Team Providers Care Liberal Arts Teacher Name Role Phone Name, Nitin PIKE Primary Care Provider [phone] Reason for Visit * Reason Onset Date Comments Durable Medical Equipment 12/09/2023 Encounter Details Date Type Department Care Team ([facility] st Contact Info) Description 12/09/2023 Telephone [facility] MEDICINE 230 [place], [place] [phone] Name, MD Nitin [address] [place], [place] [phone] Durable Medical Equipment Social History Tobacco Use [...] 10:11 AM EST DME rx faxed to [facility] as requested. RN will consult with S nurse and provide referral. * Telephone Encounter - Fozia Jacob RN - 12/09/2023 4:58 PM EST Call returned to [facility] at [facility] [phone] ext. [phone]. [facility] states that [facility] attempted to provide PT at home but pt refused. [facility] pt is requesting outpatient PT. [facility] pt is seeing a counselor more regularly and has agreed to VNA referral. Reports pt has had 3 falls in the past 2 months. [facility] states [facility] no longer has visiting nurses. [facility] recommends [employer] or [facility] for VNA referral. [facility] also requesting DME rx for rollator walker and a straight cane. Requests that DME rx be faxed to [phone]. Advised requests will be sent to pcp. * Telephone Encounter - Adithya Solorzano - 12/09/2023 4:25 PM EST Tc from [facility] requesting DME: Rollator walker . documented in this encounter Plan of Treatment Upcoming Encounters Date Type Department Care Team (Late st Contact Info) Description 08/09/2025 11:15 AM EDT Office Visit [facility] MEDICINE [address] [place] [address] Name, MD Nitin [address] [place] [address] documented as of this encounter Visit Diagnoses Not on filedocumented in this encounter Additional Health Concerns Assessment Noted Time PHQ-9 Depression Total Score: 12 023 9:37 AM EDT documented as of this encounter Care Teams Liberal Arts Teacher Relationship Specialty Start Date End Date [place], [place] [address] PCP - General Family Medicine 08/26/17 [facility] 09/01/24 documented as of this encounter
--- OUTSIDE RECORDS SUMMARY | 2025-07-27 09:52 | XMS_ITS | Encounter Summary ---
Author Organization [employer] Address 75 [facility] 7t [place] [address] Care Team Providers Care Informatics Manager Name Role Phone Name, Nitin PIKE Primary Care Provider [phone] Encounter Details Date Type Department Care Team (Late st Contact Info) Description 11/06/2022 Orders Only [facility] [address] [place], [place] [phone] Lisha Kelly LPN Social History Tobacco Use [...] Description 08/09/2025 11:15 AM EDT Office Visit [facility] MEDICINE 230 [place] [address] NameNitin MD 230 [place] [address] documented as of this encounter Visit Diagnoses Not on filedocumented in this encounter Care Teams Informatics Manager Relationship Specialty Start Date End Date Nitin Echevarria MD [address] [place] [address] PCP - General Family Medicine 08/26/17 [facility] 09/01/24 documented as of this encounter
--- OUTSIDE RECORDS SUMMARY | 2025-07-27 09:52 | XMS_ITS | Encounter Summary ---
Author Organization [employer] Address 75 [facility] 7[address] [place] [address] Care Team Providers Care Detective And Intelligence Analyst Name Role Phone Name, Nitin PIKE Primary Care Provider Reason for Visit * Reason Onset Date Comments Order(s) 12/09/2023 Encounter Details Date Type Department Care Team ([facility] Contact Info) Description 12/09/2023 Telephone [facility] MEDICINE 230 [place], [place] [phone] Name, MD Nitin 230 [place], [place] [phone] Order(s) Social History Tobacco Use Types Packs/Day [...] orders. If any questions please contact Noreen [phone]. documented in this encounter Plan of Treatment Upcoming Encounters Date Type Department Care Team (Late st Contact Info) Description 08/09/2025 11:15 AM EDT Office Visit [facility] MEDICINE [address] [place] [address] Name, MD Nitin [address] [place] [address] documented as of this encounter Visit Diagnoses Not on filedocumented in this encounter Additional Health Concerns Assessment Noted Time PHQ-9 Depression Total Score: 12 023 9:37 AM EDT documented as of this encounter Care Teams Detective And Intelligence Analyst Relationship Specialty Start Date End Date Name, MD Nitin [address] [place] [address] PCP - General Family Medicine 08/26/17 [facility] 09/01/24 documented as of this encounter
--- OUTSIDE RECORDS SUMMARY | 2025-07-27 09:52 | XMS_ITS | Encounter Summary ---
Author Organization [employer] Address 75 [facility] 7t [place] [address] Care Team Providers Care Drier Belt Conveyor Name Role Phone Name, Nitin PIKE Primary Care Provider [phone] Reason for Visit * Reason Onset Date Comments Verbal Orders 01/02/2024 Encounter Details Date Type Department Care Team ([facility] st Contact Info) Description 01/02/2024 Telephone [facility] 230 [place], [place] [phone] Name, MD Nitin [address] [place] [address] Verbal Orders Social History Tobacco Use Types [...] No answer. LVM to call back on [phone]. * Telephone Encounter - Melany Santos RN - 01/06/2024 10:25 AM EST Please review and advise for below request. * Telephone Encounter - Deana Bazzi - 01/02/2024 3:44 PM EST Tc from [facility] with S requesting verbal orders for discharge pt from Occupational Therapy, due to pt refuses services, please contact [facility] at [phone]. documented in this encounter Plan of Treatment Upcoming Encounters Date Type Department Care Team (Late st Contact Info) Description 08/09/2025 11:15 AM EDT Office Visit [facility] [address] [place] [address] Name, MD Nitin [address] [place] [address] documented as of this encounter Visit Diagnoses Not on filedocumented in this encounter Additional Health Concerns Assessment Noted Time PHQ-9 Depression Total Score: 12 023 9:37 AM EDT documented as of this encounter Care Teams Drier Belt Conveyor Relationship Specialty Start Date End Date Name, MD Nitin [address] [place] [address] PCP - General Family Medicine 08/26/17 [facility] 09/01/24 documented as of this encounter
--- OUTSIDE RECORDS SUMMARY | 2025-07-27 09:52 | XMS_ITS | Clinical Summary ---
Author Organization [employer] Address [address] [place] [address] [address] [place] [address] Care Team Providers Care Credit Control Manager Name Role Phone Name, Nitin PIKE Primary Care Provider [phone] Allergies Active Allergy Reactions Criticality Noted Date [...] each 024 Active mirtazapine (Remeron) 45 MG tabletIndications :Depressive disorder TAKE 1 TABLET BY MOUTH AT BEDTIME 30 tablet 2 024 Active hydrocortisone 2.5 % creamIndications: Rash Apply [...] 12 (twelve) hours. 30 mL 2 024 Active gabapentin (Neurontin) 100 MG capsule 024 Active azithromycin (Zithromax Z-Alirio) 250 MG tablet Take 2 tabs day 1 and then 1 tab daily to finish 6 tablet 024 Active Acetaminophen Extra Strength 500 MG tabletIndications :Chronic bilateral low back pain without sciatica TAKE 1 TABLET BY MOUTH EVERY 8 HOURS NEEDED FOR PAIN (CROATIAN LABEL) 90 tablet 024 Active ammonium lactate (Lac-Hydrin) 12 % lotion APPLY TOPICALLY TWICE DAILY IN THE MORNING AND AT BEDTIME FOR DRY SKIN 024 Active Bisacodyl EC 5 MG EC tablet TAKE 1 TABLET BY MOUTH EVERY DAY NEEDED FOR CONSTIPATION. DO NOT BREAK, CRUSH, DISSOLVE OR CHEW 30 tablet 3 024 Active polyethylene glycol, PEG, 3350 (GaviLAX) 17 GM/SCOOP powder MIX 17G (1 CAPFUL) IN 8 OUNCES OF WATER AND TAKE BY MOUTH TWICE A DAY 238 g 11 024 Active sertraline (Zoloft) 100 MG tablet Take [...] because it calms her down. I called [facility] pharmacy to attempt a med rec they instructed me that she is on med box and one week at a time prescriptions because she would break into her med boxes to take more Ambien or xanax. She is being seen by Izzy Perea at [facility]. He is aware of her [...] left I received a call from the [facility] pharmacy instructing me that she was at [...] Encounters Date Type Department Care Team Description 07/27/2025 Orders Only [facility] External Provider, [facility] 07/26/2025 Orders Only GENERIC EXTERNAL DATA DEPARTMENT Provider, Generic External Data 07/26/2025 Telephone [facility] [address] [place] [address] Nitin Echevarria MD ER Follow-up 07/25/2025 Refill [facility] [address] [place] [address] Nitin Echevarria MD 07/25/2025 Refill [facility] [address] [place] [address] Nitin Echevarria MD 07/18/2025 Refill [facility] [address] [place] [address] Miryam Riley NP 07/18/2025 Orders Only GENERIC EXTERNAL DATA DEPARTMENT Provider, Generic External Data 07/17/2025 Refill [facility] [address] [place] [address] Nitin Echevarria MD Hypertension, unspecified type 07/07/2025 8:40 AM EDT [facility] [address] [address] Zach Javier MD Acute conjunctivitis of left eye, unspecified acute conjunctivitis type (Primary Dx) 07/07/2025 Travel 07/01/2025 9:20 AM EDT [facility] [address] [address] Zach Javier MD Pedal edema (Primary Dx) 07/01/2025 Travel 06/28/2025 Refill [facility] [address] [place] [address] Nitin Echevarria MD 06/27/2025 Refill [facility] [address] [place] [address] NameNitin MD Vitamin D deficiency 06/19/2025 Refill [facility] [address] [place] [address] Nitin Echevarria MD Prediabetes 06/17/2025 9:30 AM EDT Office Visit [facility] [address] [place] [address] Thea Warren FNP Generalized anxiety disorder with panic attacks (Primary Dx); Essential (primary) hypertension 06/17/2025 Travel 06/17/2025 Telephone [facility] [address] [place] [address] Nitin Echevarria MD Med Refill (Pt is ) 06/08/2025 Refill [facility] [address] [place], [place] [phone] Nitin Echevarria MD 05/25/2025 Refill [facility] [address] [place], [place] [phone] Miryam Riley, KIKO Vitamin D deficiency 05/11/2025 Refill [facility] [address] [place], [place] [phone] Nitin Echevarria MD 05/06/2025 9:30 AM EDT Clinical Support [facility] [address] [place] [address] Betina Slade, VARGAS Impacted cerumen of right ear [H61.21] 05/06/2025 Results Follow-Up [facility] [address] [place] [address] Nitin Echevarria MD Urinalysis, Complete, with Reflex to Culture, Drug Monitoring, Panel 1, Screen, Urine, Culture, Urine, Routine 05/06/2025 Travel 05/04/2025 Orders Only GENERIC EXTERNAL DATA DEPARTMENT Provider, Generic External Data 04/29/2025 10:00 AM EDT Office Visit [facility] [address] [place] [address] Name, MD Nitin Generalized anxiety disorder with panic attacks (Primary Dx); Decreased hearing of both ears; Impacted cerumen of right ear; Rash 04/29/2025 Travel 04/27/2025 Telephone [facility] [address] [place] [address] Ariel David MA CHARTPREP from Last 3 [...] 11:15 AM EDT Office Visit [facility] [address] [place] [address] Name, MD Nitin [address] [place] [address] Health Maintenance Due Date Last Done Comments [...] PE PROTOCAL Routine 07/27/2025 8:51 AM EDT URINALYSIS, COMPLETE, WITH REFLEX TO CULTURE Routine 07/26/2025 10:41 AM EDT COMPREHENSIVE METABOLIC PANEL Routine 07/26/2025 [...] Reflex to Culture (07/27/2025 9:35 AM EDT) Only the most recent of3 resultswithin the time period is included. Color Urine Yellow [facility] Appearance Urine Clear [facility] PH 6.0 5.0 - 9.0 [facility] Glucose Urine UA Negative Negative mg/dL [facility] Urine Blood Negative Negative [facility] Specific [place] - Urine 1.015 1.005 - 1.025 [facility] Urine Protein Negative Neg-Trace mg/dL [facility] Urine Ketones Negative Negative mg/dL [facility] Nitrite Urine Negative Negative [facility] Leukocyte Esterase Urine Moderate (2+)(A) Negative [facility] RBC Urine 0-2 0 - 2 /HPF [facility] Urine WBC 11-20(A) 0 - 5 /HPF [facility] Urine Squamous Epithelial Cell 0-2 0 - 2 /HPF [facility] Urine Bacteria None Seen None Seen [facility] Hyaline Casts, Urine 0-2 0 - 2 /LPF [facility] 07/27/2025 9:35 AM EDT 07/27/2025 9:40 AM EDT Narrative [facility] - 07/27/2025 9:45 AM EDT Urine, Clean Catch us Generic External Data Provider LAB URINE ORDERAB LES Final Result [facility] [address] [place] [phone] * CTA Chest PE Protocal (07/27/2025 8:51 AM EDT) Anatomical Region Laterality Modality Body, Chest Computed Tomogra phy 07/27/2025 8:51 AM EDT Narrative 07/27/2025 9:23 AM EDT [address] [address] [address] Scan Report Signed Patient: Noreen Wing MR#: [id number] : 1945 Acct:[id number] Age/Sex: 79 / F ADM Date: 07/27/25 Loc: .ED Attending Dr: Ordering Physician: Jami Cortés PA-C Date of Service: 07/27/25 Procedure(s): CT angio chest PE protocol Accession Number(s): [id number] cc: Jami Cortés PA-C; Name,Nitin PIKE Report Number: [id number]: Total DLP = 0.00 mGy-cm Reason for [...] in OV> 07/27/25919 DD/ 0851 TD/TT: 07/27/25 0905 Director Metabolism: Procedure Note Donotuseinterpreter, Image - 07/27/[address] [address] [address] Scan Report Signed Patient: Noreen WingMR#: [id number] : 1945cct:[id number] Age/Sex: 79 / FADM Date: 07/27/25 Loc: HO.ED Attending Dr: Ordering Physician: Jami Cortés PA-C Date of Service: 07/27/25 Procedure(s): CT angio chest PE protocol Accession Number(s): [id number] cc: Jami Cortés PA-C; Name,Nitin Report Number: [id number]: Total DLP = 0.00 mGy-cm Reason for [...] MDin OV> 07/27/25919 DD/ 0 TD/TT: 07/27/25904 Director Metabolism: [facility] External Provider IMG CT PROCEDURES Edited Result - Final * (ABNORMAL) CBC auto differential (07/26/2025 8:51 AM EDT) Only the most recent of2 resultswithin the time period is included. White Blood Count 7.2 4.8 - 10.8 X10*3/uL [facility] Red Blood Count 3.90(L) 4.20 - 5.50 X10*6/uL [facility] Hemoglobin 11.0(L) 12.0 - 16.0 g/dl [facility] Hematocrit 32.3(L) 37.0 - 47.0 % [facility] Mean Corpuscular Volume 82.8 80.0 - 98.0 fL [facility] Mean Corpuscular Hemoglobin 28.2 27.0 - 33.0 pg [facility] Mean Corpuscular HGB Conc 34.1 31.0 - 35.0 g/dl [facility] Red Cell Distribution Width 14.0 11.0 - 16.0 % [facility] Platelet Count 257 160 - 400 X10*3/uL [facility] Mean Platelet Volume 8.5(L) 9.4 - 12.3 fL [facility] Neutrophils Percent Auto 66.5 45 - 73 % [facility] Imm Gran Pct Auto 0.3 0.0 - 0.4 % [facility] Lymphocytes Percent Auto 23.5 20 - 40 % [facility] Monocytes Percent Auto 8.2 2 - 11 % [facility] Eosinophils Percent Auto 0.7 0 - 4 % [facility] Basophils Percent Auto 0.8 0 - 2 % [facility] NRBC Pct Auto 0.0 0.0 - 0.2 /100WBC [facility] Neutrophils Absolute Auto 4.8 2.0 - 8.3 x10*3/uL [facility] Imm Gran Abs Auto 0.02 0.00 - 0.03 X10*3/uL [facility] Lymphocytes Absolute Auto 1.7 1.2 - 4.9 X10*3/uL [facility] Monocytes Absolute Auto 0.6 0.1 - 1.2 X10*3/uL [facility] Eosinophils Absolute Auto 0.1 0.0 - 0.4 X10*3/uL [facility] Basophils Absolute Auto 0.1 0.0 - 0.2 X10*3/uL [facility] NRBC Abs Auto 0.000 0.0 - 0.012 X10*3/uL [facility] 07/26/2025 8:51 AM EDT 07/26/2025 8:53 AM EDT us Generic External Data Provider LAB BLOOD ORDERAB LES Final Result [facility] [address] [place] [phone] * (ABNORMAL) Comprehensive Metabolic Panel (07/26/2025 8:51 AM EDT) Sodium 134(L) 135 - 145 mmol/L [facility] Potassium 4.6 3.3 - 5.1 mmol/L [facility] Chloride 100 96 - 108 mmol/L [facility] Carbon Dioxide 28 22 - 29 mmol/L [facility] Anion Gap 11(L) 12 - 20 [facility] Urea Nitrogen (BUN) 19(H) 9 - 16 mg/dL [facility] Creatinine, Serum 0.97 0.5 - 1.4 mg/dL [facility] Creatinine Clr Calc Pharmacy 47.9 [facility] Comment:Provided height and weight: 162.56 cm,84.7 kg.eGFR (calculated from the MDRD study equation) and eCrCl(calculated from the Cockcroft-Gault equation) are based ondifferent parameters and may not yield comparable results.If eCrCl result is absurd, please check patient'sheight/weight. Estimated Glomerular Filt Rate 55 [facility] Comment:Chronic Kidney Disea se: Estimated GFR < 60 mL/min/1.74l4Kezyza Kidney Disease: Estimated GFR < 15 mL/min/1.73m2 Glucose 102 60 - 115 mg/dL [facility] Calcium 8.9 8.4 - 10.2 mg/dL [facility] Bilirubin, Total 0.3 0.0 - 1.0 mg/dL [facility] Aspartate Amino Transferase 28 5 - 31 U/L [facility] Alanine Aminotransferase 17 0 - 31 U/L [facility] Total Protein 7.6 6.5 - 8.0 g/dL [facility] Albumin Level 4.1 3.5 - 5.0 g/dL [facility] Alkaline Phosphatase 80 39 - 117 U/L [facility] 07/26/2025 8:51 AM EDT 07/26/2025 8:53 AM EDT us Generic External Data Provider LAB BLOOD ORDERAB LES Final Result [facility] [address] [place] [phone] * High Sensitivity Troponin I (07/18/2025 6:47 AM EDT) TROPONIN I HIGH SENSITIVITY <2.7 <3.5 - 17.0 ng/L [facility] Comment:The Mckeon high sens itivity Troponin-I results should beused in conjunction with other diagnostic information suchas ECG, clinical observations and information, and patientsymptoms to aid in the diagnosis of MO. 07/18/2025 6:47 AM EDT 07/18/2025 6:50 AM EDT us Generic External Data Provider LAB BLOOD ORDERAB LES Final Result Performing Organization Address [facility]/ZIP Co de Phone Number [facility] [address] [place] [phone] * (ABNORMAL) Basic Metabolic Panel (07/18/2025 6:47 AM EDT) Sodium 141 135 - 145 mmol/L [facility] Potassium 4.6 3.3 - 5.1 mmol/L [facility] Chloride 105 96 - 108 mmol/L [facility] Carbon Dioxide 30(H) 22 - 29 mmol/L [facility] Anion Gap 11(L) 12 - 20 [facility] Urea Nitrogen (BUN) 25(H) 9 - 16 mg/dL [facility] Creatinine, Serum 0.96 0.5 - 1.4 mg/dL [facility] Creatinine Clr Calc Pharmacy 50.3 [facility] Comment:Provided height and weight: 160.02 cm,94.9 kg.eGFR (calculated from the MDRD study equation) and eCrCl(calculated from the Cockcroft-Gault equation) are based ondifferent parameters and may not yield comparable results.If eCrCl result is absurd, please check patient'sheight/weight. Estimated Glomerular Filt Rate 56 [facility] Comment:Chronic Kidney Disea se: Estimated GFR < 60 mL/min/1.89k1Kpnkiv Kidney Disease: Estimated GFR < 15 mL/min/1.73m2 Glucose 101 60 - 115 mg/dL [facility] Calcium 8.8 8.4 - 10.2 mg/dL [facility] 07/18/2025 6:47 AM EDT 07/18/2025 6:50 AM EDT Generic External Data Provider LAB BLOOD ORDERAB LES Final Result Performing Organization Address City/[facility]/ZIP Co de Phone Number [facility] [address] [place] [phone] * Drug Monitoring, Panel 1, Screen, Urine (05/04/2025 11:33 PM EDT) Opiate Screen Urine Not Detected Not Detect [facility] Comment:Opiate cut-off is 30 0 ng/mL.Positive results are unconfirmed and should not be used fornon-medical purposes. Barbiturates, Urine Not Detected Not Detect [facility] Comment:Barbiturate cut-off is 200 ng/mL.Positive results are unconfirmed and should not be used fornon-medical purposes. Phencyclidine Screen Urine Not Detected Not Detect [facility] Comment:Phencyclidine cut-of f is 25 ng/mL.Positive results are unconfirmed and should not be used fornon-medical purposes. Amphetamine Screen Urine Not Detected Not Detect [facility] Comment:Amphetamine cut-off is 1000 ng/mL.Positive results are unconfirmed and should not be used fornon-medical purposes. Benzodiazepines Screen Urine Not Detected Not Detect [facility] Comment:Benzodiazepine cut-o ff is 200 ng/mL.Positive results are unconfirmed and should not be used fornon-medical purposes. Cocaine Screen Urine Not Detected Not Detect [facility] Comment:Cocaine cut-off is 3 00 ng/mL.Positive results are unconfirmed and should not be used fornon-medical purposes. Cannabinoid Screen Urine Not Detected Not Detect [facility] Comment:Cannabinoid cut-off is 50 ng/mL.Positive results are unconfirmed and should not be used fornon-medical purposes. Methadone Screen, Urine Not Detected Not Detect ng/mL [facility] Comment:Methadone cut-off is 300 ng/mL.Positive results are unconfirmed and should not be used fornon-medical purposes. FENTANYL URINE Not Detected Not Detect [facility] Comment:Fentanyl cut-off is 1 ng/mL.Positive results are unconfirmed and should not be used fornon-medical purposes. Oxycodone Urine Screen Not Detected Not Detect ng/mL [facility] Comment:Oxycodone cut-off is 100 ng/mL.Positive results are unconfirmed and should not be used fornon-medical purposes. Buprenorphine Screen Not Detected Not Detect ng/mL [facility] Comment:Buprenorphine cut-of f is 5 ng/mL.Positive results are unconfirmed and should not be used fornon-medical purposes. 05/04/2025 11:3 3 PM EDT 05/04/2025 11:36 PM EDT us Generic External Data Provider LAB URINE ORDERAB LES Final Result [facility] [address] [place] [phone] * CT Sinus Facial Bones w/o Contrast (05/04/2025 11:25 PM EDT) Anatomical Region Laterality Modality Computed Tomogra phy 05/04/2025 11:2 5 PM EDT Narrative 05/04/2025 11:27 PM EDT [address] [address] [address] Scan Report Signed Patient: Noreen Wing MR#: [id number] : 1945 Acct:[id number] Age/Sex: 79 / F ADM Date: 05/04/25 Loc: HO.ED Attending Dr: Ordering Physician: Marta Briscoe MD Date of Service: 05/04/25 Procedure(s): CT facial bones wo IV con Accession Number(s): [id number] cc: Nitin Echevarria MD; Marta Briscoe MD Report Number: [id number]: Total DLP = 1435.00 mGy-cm CLINICAL HISTORY: [...] in OV> 05/04/252326 DD/ 24 TD/TT: 05/04/252324 Director Metabolism: Procedure Note Brendater, Image - 05/04/[address] [place] [address] [address] Scan Report Signed Patient: Jennifer Wing#: [id number] : 1945cct:[id number] Age/Sex: 79 / FADM Date: 05/04/25 Loc: HO.ED Attending Dr: Ordering Physician: Marta Briscoe MD Date of Service: 05/04/25 Procedure(s): CT facial bones wo IV con Accession Number(s): [id number] cc: Name,Nitin PIKE; Marta Briscoe MD Report Number: [id number]: Total DLP = 1435.00 mGy-cm CLINICAL HISTORY: [...] in OV> 05/04/252326 DD/ 24 TD/TT: 05/04/252324 Director Metabolism: [facility] External Provider IMG CT PROCEDURES Final Result * CT Head w/o Contrast (05/04/2025 11:24 PM EDT) Anatomical Region Laterality Modality Head, Neck Computed Tomogra phy 05/04/2025 11:2 4 PM EDT Narrative 05/04/2025 11:25 PM EDT [address] [address] [address] Scan Report Signed Patient: Noreen Wing MR#: [id number] : 1945 Acct:[id number] Age/Sex: 79 / F ADM Date: 05/04/25 Loc: HO.ED Attending Dr: Ordering Physician: Marta Briscoe MD Date of Service: 05/04/25 Procedure(s): CT head/brain wo IV con Accession Number(s): [id number] cc: Name,Nitin PIKE; Marta Briscoe MD Report Number: [id number]: Total DLP = 1435.00 mGy-cm CLINICAL HISTORY: [...] in OV> 05/04/252324 DD/ 23 TD/TT: 05/04/252323 Director Metabolism: Procedure Note Donotuseinterpreter, Image - 05/04/[address] [address] [address] Scan Report Signed Patient: Noreen WingMR#: [id number] : 1945cct:[id number] Age/Sex: 79 / FADM Date: 05/04/25 Loc: HO.ED Attending Dr: Ordering Physician: Marta Briscoe MD Date of Service: 05/04/25 Procedure(s): CT head/brain wo IV con Accession Number(s): [id number] cc: Name,Nitin PIKE; Marta Briscoe MD Report Number: [id number]: Total DLP = 1435.00 mGy-cm CLINICAL HISTORY: [...] in OV> 05/04/252324 DD/ 23 TD/TT: 05/04/252323 Director Metabolism: [facility] External Provider IMG CT PROCEDURES Final Result * CT Cervical Spine w/o Contrast (05/04/2025 11:21 PM EDT) Anatomical Region Laterality Modality Spine, C-spine Computed Tomogra phy 05/04/2025 11:2 1 PM EDT Narrative 05/04/2025 11:23 PM EDT [place] [address] CT Scan Report Signed Patient: Noreen Wing MR#: [id number] : 1945 Acct:[id number] Age/Sex: 79 / F ADM Date: 05/04/25 Loc: HO.ED Attending Dr: Ordering Physician: Marta Briscoe MD Date of Service: 05/04/25 Procedure(s): CT cervical spine wo IV con Accession Number(s): [id number] cc: Name,Nitin PIKE; Marta Briscoe MD Report Number: [id number]: Total DLP = 1434.00 mGy-cm CLINICAL HISTORY: [...] in OV> 05/04/252321 DD/ 20 TD/TT: 05/04/252320 Director Metabolism: Procedure Note Donotuseinterpreter, Image - 05/04/[address] [place] [address] [address] Scan Report Signed Patient: Jennifer Wing#: [id number] : 1945cct:[id number] Age/Sex: 79 / FADM Date: 05/04/25 Loc: HO.ED Attending Dr: Ordering Physician: Marta Briscoe MD Date of Service: 05/04/25 Procedure(s): CT cervical spine wo IV con Accession Number(s): [id number] cc: Name,Nitin PIKE; Marta Briscoe MD Report Number: [id number]: Total DLP = 1434.00 mGy-cm CLINICAL HISTORY: [...] in OV> 05/04/252321 DD/ 20 TD/TT: 05/04/252320 Director Metabolism: [facility] External Provider IMG CT PROCEDURES Final Result * Culture, Urine, Routine (05/04/2025 12:00 AM EDT) Urine Urine specimen obtained by clean catch procedure / Unknown 05/04/2025 05/04/2025 Comment:[facility] Narrative [facility] - 05/06/2025 1:19 PM EDT Strep agalactiae (Grp B) Quant 10,000 to 50,000 cfu/mL Susc N/A Susceptibility not routinely performed on this isolate. Specimen Source: Urine clean catch Generic External Data Provider LAB MICROBIOLOGY - GENERAL ORDERABLES Final Result [facility] [address] [place] [phone] * POCT HGB A1C (01/10/2025 11:02 [...] factors. LDL-C is now calculated using the Jack-Kaminski calculation, which is a validated novel method providing better accuracy than the Friedewald equation in the estimation of LDL-C. Jack SS et al. JITENDRA. 2013;310(19): 8443-6532 (http://education.Recovers.hdl therapeutics/faq/AYX642) Non-HDL Cholesterol 88 <130 mg/dL (calc) CONVERTED [...] Most Recently Relevant to Health Maintenance Insurance [employer] (HMO D-SNP) Care Teams Credit Control Manager Relationship Specialty Start Date End Date Name, MD Nitin [address] [place] [phone] PCP - General Family Medicine 08/26/17 [facility] 09/01/24
--- OUTSIDE RECORDS SUMMARY | 2025-07-27 09:52 | XMS_ITS | Encounter Summary ---
Author Organization [employer] Address [address] [facility] [address] [place] [address] Care Team Providers Care Vehicle Damage Appraiser Name Role Phone Name, Nitin PIKE Primary Care Provider [phone] Encounter Details Date Type Department Care Team ([facility] Contact Info) Description 01/06/2023 Orders Only [facility] [address] [place], [place] [phone] Lisha Kelly LPN Social History Tobacco Use [...] Description 08/09/2025 11:15 AM EDT Office Visit [facility] [address] [place], [place] [phone] Name, MD Nitin [address] [place] [address] documented as of this encounter Visit Diagnoses Not on filedocumented in this encounter Care Teams Vehicle Damage Appraiser Relationship Specialty Start Date End Date Name, MD Nitin [address] [place] [address] PCP - General Family Medicine 08/26/17 [facility] 09/01/24 documented as of this encounter
--- OUTSIDE RECORDS SUMMARY | 2025-07-27 09:52 | XMS_ITS | Encounter Summary ---
Author Organization [employer] Address [address] [facility] [address] [place] [address] Care Team Providers Care Glove Brusher Name Role Phone Name, Nitin PIKE Primary Care Provider [phone] Reason for Visit * Reason Comments Med Refill Encounter Details Date Type Department Care Team (Late st Contact Info) Description 08/16/[address] [facility] [address] [place], [place] [phone] Name, MD Nitin [address] [place] [address] Heartburn Social History Tobacco Use Types Packs/Day [...] EDT Office Visit [facility] [address] [place] [phone] NameNitin MD [address] [place] [phone] documented as of this encounter Visit Diagnoses Diagnosis Heartburn documented in this encounter Additional Health Concerns Assessment Noted Time PHQ-9 Depression Total Score: 6 02/13/20 24 9:14 AM EDT documented as of this encounter Care Teams Glove Brusher Relationship Specialty Start Date End Date NameNitin MD [address] [place] [phone] PCP - General Family Medicine 08/26/17 [facility] 09/01/24 documented as of this encounter
--- OUTSIDE RECORDS SUMMARY | 2025-07-27 09:52 | XMS_ITS | Encounter Summary ---
Author Organization [employer] Address [address] [facility] [address] [place] [address] Care Team Providers Care Manager Fund Name Role Phone Name, Nitin PIKE Primary Care Provider [phone] Reason for Visit * Reason Onset Date Comments FYI 01/21/2024 ER Follow-up 01/21/2024 Encounter Details Date Type Department Care Team ([facility] st Contact Info) Description 01/21/2024 Telephone [facility] [address] [place], [place] [phone] Name, MD Nitin [address] [place] [address] FYI; ER Follow-up Social History Tobacco Use [...] - 01/21/2024 1:54 PM EDT Message from [facility] [place]. [facility] [place] sent to medical records. PCP does not rx Trazodone. Pt to f/u with psych prescriber. Pt is scheduled for f/u with pcp 02/13/24. * Telephone Encounter - Janette Huitron - 01/21/2024 9:45 AM EDT Tc from [facility] with [facility] ED calling in regards to pt. States pt was seen today for anxiety and is requesting trazodone. Will discharge pt with no medication change. Would also like to advise provider, [place] [facility] [place]/insomnia as well documented in this encounter Plan of Treatment Upcoming Encounters Date Type Department Care Team (Late st Contact Info) Description 08/09/2025 11:15 AM EDT Office Visit [facility] [address] [place] [address] Name, MD Nitin [address] [place] [address] documented as of this encounter Visit Diagnoses Not on filedocumented in this encounter Additional Health Concerns Assessment Noted Time PHQ-9 Depression Total Score: 12 023 9:37 AM EDT documented as of this encounter Care Teams Manager Fund Relationship Specialty Start Date End Date Name, MD Nitin [address] [place] [address] PCP - General Family Medicine 08/26/17 [facility] 09/01/24 documented as of this encounter
--- OUTSIDE RECORDS SUMMARY | 2025-07-27 09:52 | XMS_ITS | Encounter Summary ---
Author Organization [employer] Address [address] [facility] [address] [place] [address] Care Team Providers Care An Employee Sponsor Or Advocate And Name Role Phone Name, Nitin PIKE Primary Care Provider [phone] Encounter Details Date Type Department Care Team ([facility] st Contact Info) Description 05/26/2023 Orders Only [facility] [address] [place] [address] Noreen Fox MD [address] [place] [address] Social History Tobacco Use Types Packs/Day Years [...] Score 4 05/11 9:37 AM EDT Renetta Solorzaon * If you checked off any problems [...] 08/09/2025 11:15 AM EDT Office Visit [facility] [address] [place] [address] Name, MD Nitin [address] [place] [address] documented as of this encounter Visit Diagnoses Not on filedocumented in this encounter Care Teams An Employee Sponsor Or Advocate And Relationship Specialty Start Date End Date Name, MD Nitin [address] [place] [address] PCP - General Family Medicine 08/26/17 [facility] 09/01/24 documented as of this encounter
--- OUTSIDE RECORDS SUMMARY | 2025-07-27 09:52 | XMS_ITS | Encounter Summary ---
Author Organization [employer] Address [address] [facility] [address] [place] [address] Care Team Providers Care Games Dealer Name Role Phone Name, Nitin PIKE Primary Care Provider [phone] Encounter Details Date Type Department Care Team ([facility] Contact Info) Description 12/17/[address] [facility] [address] [place], [place] [phone] Lisha Kelly LPN Social History Tobacco Use [...] Office Visit [facility] [address] [place] [address] Nitin Echevarria MD [address] [place] [address] documented as of this encounter Visit Diagnoses Not on filedocumented in this encounter Care Teams Games Dealer Relationship Specialty Start Date End Date NameNitin MD [address] [place] [address] PCP - General Family Medicine 08/26/17 [facility] 09/01/24 documented as of this encounter
--- OUTSIDE RECORDS SUMMARY | 2025-07-27 09:52 | XMS_ITS | Encounter Summary ---
Author Organization [employer] Address [address] [facility] [address] [place] [address] Care Team Providers Care Strain Technician Name Role Phone Name, Nitin PIKE Primary Care Provider [phone] Encounter Details Date Type Department Care Team [...] Description 08/09/2025 11:15 AM EDT Office Visit [facility] [address] [place] [address] Name, MD Nitin [address] [place] [address] documented as of this encounter Procedures Procedure Name Priority Date/Time Associated Diagnosis Comments URINALYSIS, COMPLETE, WITH REFLEX TO CULTURE Routine 07/26/2025 10:41 AM EDT CBC WITH AUTO DIFFERENTIAL Routine 07/26/2025 8:51 AM EDT COMPREHENSIVE METABOLIC PANEL Routine 07/26/2025 8:51 AM EDT documented in this encounter Results * (ABNORMAL) Urinalysis, Complete, with Reflex to Culture (07/26/2025 10:41 AM EDT) Color Urine Yellow [facility] Appearance Urine Clear [facility] PH 6.5 5.0 - 9.0 [facility] Glucose Urine UA Negative Negative mg/dL [facility] Urine Blood Negative Negative [facility] Specific [place] - Urine 1.010 1.005 - 1.025 [facility] Urine Protein Negative Neg-Trace mg/dL [facility] Urine Ketones Negative Negative mg/dL [facility] Nitrite Urine Negative Negative [facility] Leukocyte Esterase Urine Moderate (2+)(A) Negative [facility] RBC Urine 0-2 0 - 2 /HPF [facility] Urine WBC 21-50(A) 0 - 5 /HPF [facility] Urine Squamous Epithelial Cell 0-2 0 - 2 /HPF [facility] Urine Bacteria None Seen None Seen [facility] Hyaline Casts, Urine 0-2 0 - 2 /LPF [facility] 07/26/2025 10:4 1 AM EDT 07/26/2025 10:54 AM EDT Narrative [facility] - 07/26/2025 11:07 AM EDT [id number], [employer] us Generic External Data Provider LAB URINE ORDERAB LES Final Result [facility] [address] [place] [phone] * (ABNORMAL) Comprehensive Metabolic Panel (07/26/2025 8:51 AM EDT) Sodium 134(L) 135 - 145 mmol/L [facility] Potassium 4.6 3.3 - 5.1 mmol/L [facility] Chloride 100 96 - 108 mmol/L [facility] Carbon Dioxide 28 22 - 29 mmol/L [facility] Anion Gap 11(L) 12 - 20 [facility] Urea Nitrogen (BUN) 19(H) 9 - 16 mg/dL [facility] Creatinine, Serum 0.97 0.5 - 1.4 mg/dL [facility] Creatinine Clr Calc Pharmacy 47.9 [facility] Comment:Provided height and weight: 162.56 cm,84.7 kg.eGFR (calculated from the MDRD study equation) and eCrCl(calculated from the Cockcroft-Gault equation) are based ondifferent parameters and may not yield comparable results.If eCrCl result is absurd, please check patient'sheight/weight. Estimated Glomerular Filt Rate 55 [facility] Comment:Chronic Kidney Disea se: Estimated GFR < 60 mL/min/1.04v1Qctlst Kidney Disease: Estimated GFR < 15 mL/min/1.73m2 Glucose 102 60 - 115 mg/dL [facility] Calcium 8.9 8.4 - 10.2 mg/dL [facility] Bilirubin, Total 0.3 0.0 - 1.0 mg/dL [facility] Aspartate Amino Transferase 28 5 - 31 U/L [facility] Alanine Aminotransferase 17 0 - 31 U/L [facility] Total Protein 7.6 6.5 - 8.0 g/dL [facility] Albumin Level 4.1 3.5 - 5.0 g/dL [facility] Alkaline Phosphatase 80 39 - 117 U/L [facility] 07/26/2025 8:51 AM EDT 07/26/2025 8:53 AM EDT us Generic External Data Provider LAB BLOOD ORDERAB LES Final Result [facility] [address] [place] [phone] * (ABNORMAL) CBC auto differential (07/26/2025 8:51 AM EDT) White Blood Count 7.2 4.8 - 10.8 X10*3/uL [facility] Red Blood Count 3.90(L) 4.20 - 5.50 X10*6/uL [facility] Hemoglobin 11.0(L) 12.0 - 16.0 g/dl [facility] Hematocrit 32.3(L) 37.0 - 47.0 % [facility] Mean Corpuscular Volume 82.8 80.0 - 98.0 fL [facility] Mean Corpuscular Hemoglobin 28.2 27.0 - 33.0 pg [facility] Mean Corpuscular HGB Conc 34.1 31.0 - 35.0 g/dl [facility] Red Cell Distribution Width 14.0 11.0 - 16.0 % [facility] Platelet Count 257 160 - 400 X10*3/uL [facility] Mean Platelet Volume 8.5(L) 9.4 - 12.3 fL [facility] Neutrophils Percent Auto 66.5 45 - 73 % [facility] Imm Gran Pct Auto 0.3 0.0 - 0.4 % [facility] Lymphocytes Percent Auto 23.5 20 - 40 % [facility] Monocytes Percent Auto 8.2 2 - 11 % [facility] Eosinophils Percent Auto 0.7 0 - 4 % [facility] Basophils Percent Auto 0.8 0 - 2 % [facility] NRBC Pct Auto 0.0 0.0 - 0.2 /100WBC [facility] Neutrophils Absolute Auto 4.8 2.0 - 8.3 x10*3/uL [facility] Imm Gran Abs Auto 0.02 0.00 - 0.03 X10*3/uL [facility] Lymphocytes Absolute Auto 1.7 1.2 - 4.9 X10*3/uL [facility] Monocytes Absolute Auto 0.6 0.1 - 1.2 X10*3/uL [facility] Eosinophils Absolute Auto 0.1 0.0 - 0.4 X10*3/uL [facility] Basophils Absolute Auto 0.1 0.0 - 0.2 X10*3/uL [facility] NRBC Abs Auto 0.000 0.0 - 0.012 X10*3/uL [facility] 07/26/2025 8:51 AM EDT 07/26/2025 8:53 AM EDT us Generic External Data Provider LAB BLOOD ORDERAB LES Final Result [facility] [address] [place] [phone] documented in this encounter Visit Diagnoses Not on filedocumented in this encounter Additional Health Concerns Assessment Noted Time PHQ-9 Depression Total Score: 3 04/29/20 25 9:41 AM EDT documented as of this encounter Care Teams Strain Technician Relationship Specialty Start Date End Date Name, MD Nitin [address] [place] [address] PCP - General Family Medicine 08/26/17 [facility] 09/01/24 documented as of this encounter
--- OUTSIDE RECORDS SUMMARY | 2025-07-27 09:52 | XMS_ITS | Encounter Summary ---
Author Organization [employer] Address [address] [facility] [address] [place] [address] Care Team Providers Care Transit Clerk Name Role Phone Name, Nitin PIKE Primary Care Provider [phone] Reason for Visit * Reason Onset Date Comments Call Back Request 03/14/2025 Encounter Details Date Type Department Care Team ([facility] st Contact Info) Description 03/14/2025 Telephone [facility] [address] [place], [place] [phone] Name, MD Nitin [address] [place] [address] Call Back Request Social History Tobacco Use [...] Description 08/09/2025 11:15 AM EDT Office Visit [facility] [address] [place] [address] Name, MD Nitin [address] [place] [address] documented as of this encounter Visit Diagnoses Not on filedocumented in this encounter Additional Health Concerns Assessment Noted Time PHQ-9 Depression Total Score: 6 02/13/20 24 9:14 AM EDT documented as of this encounter Care Teams Transit Clerk Relationship Specialty Start Date End Date Name, MD Nitin [address] [place] [address] PCP - General Family Medicine 08/26/17 [facility] 09/01/24 documented as of this encounter
[2025-07-27 10:09] LABS: Troponin-I High Sensitivity < 2.7 ng/L (<3.5-17.0)
[2025-07-27 10:39] VITALS: BP 99/66; PULSE 65; RESP 15; TEMP 36.9; O2SAT 97
[2025-07-27 10:54] VITALS: BP 131/71; PULSE 69; RESP 20; O2SAT 96
[2025-07-27 12:21] VITALS: BP 127/70; PULSE 68; RESP 14; TEMP 36.5; O2SAT 94
--- NOTE | 2025-07-27 13:44 | PC.NURSE ---
Patient educated with meringuer regarding PE, PE medication adherence , and when to return to ED. Patient declines STR, aware she needs to pick eliquis up from the pharmacy and takes 10mg BID x 7 days, verbalized understanding
[2025-07-27 14:03] VITALS: BP 127/70; PULSE 68; RESP 14; TEMP 36.5; O2SAT 94
== END 2025-07-27 14:03 | disposition home or self-care (01) ==
PROVIDERS: Emergency Provider Emergency Medicine; PCP Internal Medicine Geriatric Medicine
DX: R07.89 Other chest pain (principal); I26.99 Other pulmonary embolism without acute cor pulmonale; N39.0 Urinary tract infection, site not specified; I10 Essential (primary) hypertension; Z79.899 Other long term (current) drug therapy
CPT/HCPCS: 36415; 71275; 80053; 81001; 84484; 85025; 85379; 87086; 93005; 96374; 99285; J2270; Q9967

== ENCOUNTER → 2025-07-27 07:32 | Outpatient (BNV) | payer OTHER, SELFPAY | PROVIDERS: Emergency Provider Emergency Medicine; PCP Internal Medicine Geriatric Medicine; Visit Provider Internal Medicine | DX: R07.89 Other chest pain (principal) | CPT/HCPCS: 93010 ==

== ENCOUNTER → 2025-07-27 08:12 | Outpatient (BNV) | payer OTHER, SELFPAY | PROVIDERS: Emergency Provider Emergency Medicine; PCP Internal Medicine Geriatric Medicine; Visit Provider Radiology Diagnostic Radiology | DX: J84.10 Pulmonary fibrosis, unspecified (principal) | CPT/HCPCS: 71275 ==

== ENCOUNTER 2025-07-28 16:06 | Emergency (ER) | payer OTHER, SELFPAY ==
--- NOTE | ~2025-07-28 | CT_ITS ---
CLINICAL HISTORY: LUQ pain CT abdomen and pelvis with contrast Comparison: None provided Findings: No consolidation or pleural effusion. The gallbladder is unremarkable. No biliary ductal dilatation. The liver, spleen, pancreas, adrenal glands and the left kidney are within normal limits. 1 cm hypodense lesion in the lower pole of the right kidney likely cyst but too small to be fully characterized. No ureteral stones and no hydronephrosis or hydroureter. No bowel obstruction, pneumoperitoneum, or pneumatosis. Descending and sigmoid colon diverticulosis with no evidence of acute diverticulitis. No free fluid or loculated fluid collection. Normal appendix. Uterus and urinary bladder within normal limits. 1.7 cm left ovarian cyst. Atherosclerotic vascular disease with no aneurysm of the abdominal aorta. No acute fracture. Degenerative changes of the spine and facet arthropathy. IMPRESSION: 1. No acute findings. 2. Diverticulosis with no evidence of acute diverticulitis. 3. Additional nonacute findings as described. This document has been electronically signed by: Selena Basurto MD on 07/28/2025 20:01:24
--- NOTE | ~2025-07-28 | CT_ITS ---
CLINICAL HISTORY: known PE. worsening pain pleurisy, new blood clots CT angiography chest with contrast. 3D Postprocessing. Comparison: None provided Findings: The heart is top normal in size. RV/LV ratio is normal. The thoracic aorta is normal caliber. No acute pulmonary artery filling defects. No consolidation, pleural effusion or pneumothorax. Calcified nodule in the right lung apex. Thyroid and thoracic esophagus within normal limits. The upper abdomen demonstrates no acute process. Degenerative changes of the thoracic spine. No acute fracture. IMPRESSION: 1. No acute pulmonary embolus. This document has been electronically signed by: Selena Basurto MD on 07/28/2025 20:35:13
[2025-07-28 16:11] VITALS: BP 158/80; PULSE 110; O2SAT 96
[2025-07-28 16:15] VITALS: BP 114/40; PULSE 76; RESP 18; TEMP 36.8; O2SAT 95
--- NOTE | 2025-07-28 16:39 | ECG_ITS ---
Test Reason : abd pain Blood Pressure : */* mmHG Vent. Rate : 71 BPM Atrial Rate : 71 BPM P-R Int : 186 ms QRS Dur : 98 ms QT Int : 396 ms P-R-T Axes : 47 -19 15 degrees QTcB Int : 430 ms Sinus rhythm with marked sinus arrhythmia Minimal voltage criteria for LVH, may be normal variant ( R in aVL ) Borderline ECG When compared with ECG of 27-Jul-2025 07:38, No significant change was found Referred By: Cuco Amador Electronically Signed By: ZANDRA ENNIS
[2025-07-28 17:07] LABS: MANUAL DIFF FLAG NO
[2025-07-28 17:10] LABS: Hematocrit 31.4 % (37.0-47.0); Hemoglobin 10.6 g/dl (12.0-16.0); Imm Gran Abs Auto 0.02 X10*3/uL (0.00-0.03); Imm Gran Pct Auto 0.3 % (0.0-0.4); Lymphocytes Absolute Auto 2.0 X10*3/uL (1.2-4.9); Mean Corpuscular HGB Conc 33.8 g/dl (31.0-35.0); Mean Corpuscular Hemoglobin 28.6 pg (27.0-33.0); Mean Corpuscular Volume 84.6 fL (80.0-98.0); NRBC Abs Auto 0.000 X10*3/uL (0.0-0.012); NRBC Pct Auto 0.0 /100WBC (0.0-0.2); Platelet Count 245 X10*3/uL (160-400); Red Blood Count 3.71 X10*6/uL (4.20-5.50); White Blood Count 7.2 X10*3/uL (4.8-10.8)
--- NOTE | 2025-07-28 17:11 | ED.GENADULT ---
HPI - General Adult General Chief complaint: Abdominal Pain Stated complaint: ABD PAIN Time Seen by Provider: 07/28/25 16:13 Source: patient Mode of arrival: ambulatory Limitations: no limitations History of Present Illness ED Provider: Cuco Amador HPI narrative: 79 yold female with pmh of anxiety presents to the ED for worsening left upper quadrant/rib pain. patient was seen here yesterday and diagnosed with PE and was discharged with oral anticoagulant. Patient states no new trauma, fever, chils, weakness, coughing, or dizziness. Related Data Home Medications ?Medication ?Instructions ?Recorded ?Confirmed mirtazapine 45 mg tablet 45 mg PO BEDTIME 08/09/20 03/16/25 omeprazole 20 mg tablet,delayed 20 mg PO DAILY@0630 08/09/20 03/16/25 release aspirin 81 mg tablet,delayed 81 mg PO QAM 01/28/24 03/16/25 release bisacodyl 5 mg tablet,delayed 5 mg PO DAILY PRN constipation 01/28/24 03/16/25 release diphenhydramine HCl 25 mg tablet 25 mg PO BEDTIME PRN itch 01/28/24 03/16/25 (Lou-Dryl) ferrous sulfate 325 mg (65 mg 325 mg PO DAILY 01/28/24 03/16/25 iron) tablet (FeroSul) melatonin 10 mg tablet,extended 10 mg PO BEDTIME PRN Insomnia 01/28/24 03/16/25 release multivitamin 1 tab PO QAM 01/28/24 03/16/25 rosuvastatin 20 mg tablet 20 mg PO BEDTIME 01/28/24 03/16/25 trazodone 50 mg tablet 50 mg PO BEDTIME 01/28/24 03/16/25 amlodipine 10 mg tablet 10 mg PO DAILY 02/09/24 03/16/25 acetaminophen 500 mg tablet 500 mg PO Q8H PRN pain 08/09/24 03/16/25 ipratropium bromide 21 mcg (0.03 2 spray intranasal BID 08/09/24 03/16/25 %) nasal spray zolpidem 5 mg tablet 5 mg PO BEDTIME PRN Insomnia 08/09/24 03/16/25 cholecalciferol (vitamin D3) 25 25 mcg PO DAILY 08/20/24 03/16/25 mcg (1,000 unit) tablet meclizine 25 mg tablet 25 mg PO DAILY PRN 09/29/24 03/16/25 sertraline 100 mg tablet 100 mg PO DAILY 03/16/25 03/16/25 Previous Rx's ?Medication ?Instructions ?Recorded metoprolol succinate 50 mg 50 mg PO DAILY #90 tabs 09/28/20 tablet,extended release 24 hr fluticasone propionate 50 2 spray intranasal DAILY #16 grams 09/16/23 mcg/actuation nasal spray,suspension (Flonase Allergy Relief) ondansetron 4 mg disintegrating 4 mg PO Q6H PRN nausea and 04/28/24 tablet vomiting #10 tabs hydroxyzine HCl 25 mg tablet 25 mg PO TID PRN anxiety #6 tabs 08/07/24 clonazepam 0.5 mg tablet 0.5 mg PO TID #180 tabs 08/10/24 gabapentin 100 mg capsule 100 mg PO TID #180 caps 08/10/24 hydroxyzine HCl 25 mg tablet 25 mg PO TID PRN anxiety #20 tabs 09/09/24 miconazole nitrate 2 % vaginal 1 appful vaginal BEDTIME 7 days 10/09/24 cream (Monistat 7) #45 grams nitrofurantoin 100 mg PO Q12H 3 days #6 caps 10/09/24 monohydrate/macrocrystals 100 mg capsule (Macrobid) miconazole nitrate 2 % topical 1 appl topical BID #28 grams 01/01/25 cream ofloxacin 0.3 % ear drops 10 drp otic (ears) DAILY 7 days #5 02/01/25 mL docusate sodium 100 mg capsule 200 mg (2 x 100 mg) PO BID #30 caps 02/07/25 (Col-Rite) polyethylene glycol 3350 17 17 g PO Q8H #238 grams 02/07/25 gram/dose oral powder (ClearLax) white petrolatum 41 % topical 1 appl topical BID PRN irritated 02/07/25 ointment (Advanced Healing skin #50 grams (Petrolatum)) azithromycin 250 mg tablet 250 mg PO DAILY 4 days #4 tabs 02/14/25 (Zithromax) docusate sodium 100 mg capsule 200 mg (2 x 100 mg) PO BID #20 caps 02/24/25 (Colace) polyethylene glycol 3350 17 17 g PO BID #119 grams 02/24/25 gram/dose oral powder (Miralax) simethicone 180 mg capsule 180 mg PO BID PRN abdominal 03/03/25 distention #14 caps clonazepam 0.5 mg tablet 0.5 mg PO DAILY #4 tabs 04/17/25 acetaminophen 500 mg tablet 500 mg PO Q6H PRN fever or pain 05/04/25 #30 tabs meclizine 12.5 mg tablet 12.5 mg PO TID PRN vertigo 5 days 07/18/25 #20 tabs valsartan 160 mg tablet 160 mg PO QPM #90 tabs 07/18/25 ibuprofen 200 mg tablet 200 mg PO Q6H PRN pain #20 tabs 07/24/25 meclizine 12.5 mg tablet 12.5 mg PO TID PRN dizziness or 07/26/25 vertigo #30 tabs apixaban 5 mg tablet See Rx Instructions .Route 07/27/25 .COMPLEX #74 tabs Allergies Allergy/AdvReac Type Severity Reaction Status Date / Time penicillin G (Penicillin G) Allergy Severe ITCHY/RASH Verified 07/28/25 16:14 Sulfa (Sulfonamide Allergy Severe ITCHY,RASH, Verified 07/28/25 16:14 Antibiotics) (Sulfa rash (Sulfonamides)) trimethoprim (From Bactrim) Allergy Severe HIVES Verified 07/28/25 16:14 Penicillins Allergy Intermediate Hives Verified 07/28/25 16:14 sulfamethoxazole (From Allergy Mild Hives Verified 07/28/25 16:14 Bactrim) Review of Systems Review of Systems: LUQ pain Yes all other systems are reviewed and are negative [facility] Past Medical History 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 or 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 ([employer]) Unable to assess alcohol history related to: Unknown Alcohol intake: never Patient Tobacco Use Status: Never used Tobacco Advance Directives Date on File: 01/28/24 service: No Physical Exam ED Vital Signs: Vital Signs - 24 hr 07/28/25 16:15 07/28/25 20:15 Temperature 98.2 F 98 F Pulse Rate 76 70 Respiratory Rate 18 18 Blood Pressure 114/40 L 145/78 H Pulse Oximetry 95 98 Oxygen Delivery Method Room Air Room Air BMI result Body Mass Index 30.0 Const General: cooperative, healthy appearing, comfortable, no acute distress, well developed, alert, awake and Physically active Orientation/consciousness: patient oriented x3 [facility] Head: Yes normal to inspection, Yes No palpable skull fracture present, Yes normocephalic and Yes atraumatic Eyes General: appearance normal, both eyes and all related structures Neck Neck: Yes normal visual inspection, Yes full ROM, Yes no lymphadenopathy, Yes no meningeal signs, Yes trachea midline, Yes supple, No anterior neck swelling and No tender Chest Chest palpation & inspection: normal inspection of the chest and normal palpation of entire chest wall Chest/axillae images:  1. positive for tenderness on palpation. negative for crepitus, rash, ertyhema, or ecchymosis. Resp Effort & Inspection: normal respiratory effort and able to speak in complete sentences Cardio Jugular venous distension: no JVD Heart sounds: S1 normal heart sound present and S2 normal heart sound present GI Inspection: Yes normal to inspection Palpation (GI): Soft to palpation, not firm, Tenderness to palpation present (GI) in the LUQ, no guarding and not rigid General: Yes no CVA tenderness Back/Spine/Pelvis Back: no CVA tenderness and No back tenderness Skin General skin exam: no rashes or lesions noted, elasticity normal and turgor normal Neuro General: patient oriented x3, gait normal, tone normal, moves all extremities, Normal light touch and pain sensation, no meningeal signs, no focal motor deficits, CN's II-XI intact bilaterally and normal sensation to monofilament Extrem General: Yes normal to inspection, Yes full ROM and Yes capillary refill normal Psych Appearance: grossly normal, well kempt and not disheveled Medications Administered Discontinued Medications Generic Name Dose Route Start Last Admin Trade Name Freq PRN Reason Stop Dose Admin Acetaminophen 975 mg 07/28/25 20:01 07/28/25 20:05 Acetaminophen 325 Mg Tablet PO 07/28/25 20:02 975 mg ONCE ONE Administration Clonazepam 0.5 mg 07/28/25 20:15 07/28/25 20:19 Clonazepam 0.5 Mg Tablet PO 07/28/25 20:16 0.5 mg ONCE ONE Administration Iohexol 85 ml 07/28/25 18:35 07/28/25 18:36 Iohexol 350 Mg/Ml 100 Ml Infus..Btl IV 07/28/25 18:36 85 ml ONCE ONE Administration Morphine Sulfate 2 mg 07/28/25 16:56 07/28/25 17:38 Morphine Sulfate 2 Mg/Ml Cartridge IVPUSH 07/28/25 16:57 2 mg ONCE ONE Administration Protocol Medical Decision Making Medical Decision Making [facility] Narrative: 79-year-old female with left upper quadrant pain/rib pain that is worsening since yesterday. Patient was diagnosed with small PE yesterday the patient states symptoms worsened. We will do repeat labs EKG and imaging. 8:46pm: Patient's labs are normal at baseline. Patient's repeat chest CTA negative for PE. Chest CTA yesterday shows questionable PE. Patient vital signs are stable. Negative for hypoxia. Abdominal CT scan negative for any acute events. Pending UA. Case was discussed with Dr. Henriquez who states patient no longer needs to take blood thinners shows prescribed yesterday, due to today chest CTA negative for PE. 9:24pm: UA negative for signs of UTI. Patient to be discharged. Patient explained worrisome signs and informed to return to the ED immediately. Not suspecting any stroke, pericarditits, aortic abdominal anuerysm rupture, or any other life threatening etiologies. Differential Diagnosis Differential Diagnoses: The differential diagnosis associated with the presentation includes (Pleurisy, pneumonia, PE) Admission/Observation Consideration of admission/observation: Escalation of care including admission/observation considered Lab Data [facility] Lab Attestation statement: I reviewed the patient's lab results. 07/28/25 17:01 07/28/25 17:01 Labs: Lab Results 07/28/25 07/28/25 Range/Units 17:01 20:06 WBC 7.2 (4.8-10.8) X10*3/uL RBC 3.71 L (4.20-5.50) X10*6/uL Hgb 10.6 L (12.0-16.0) g/dl Hct 31.4 L (37.0-47.0) % MCV 84.6 (80.0-98.0) fL MCH 28.6 (27.0-33.0) pg MCHC 33.8 (31.0-35.0) g/dl RDW 14.0 (11.0-16.0) % Plt Count 245 (160-400) X10*3/uL MPV 8.8 L (9.4-12.3) fL Immature Gran % (Auto) 0.3 (0.0-0.4) % Neut % (Auto) 57.8 (45-73) % Lymph % (Auto) 27.2 (20-40) % [place] % (Auto) 12.5 H (2-11) % Eos % (Auto) 1.8 (0-4) % Baso % (Auto) 0.4 (0-2) % Lymph # (Auto) 2.0 (1.2-4.9) X10*3/uL [place] # (Auto) 0.9 (0.1-1.2) X10*3/uL Eos # (Auto) 0.1 (0.0-0.4) X10*3/uL Baso # (Auto) 0.0 (0.0-0.2) X10*3/uL Abs Immat Gran (auto) 0.02 (0.00-0.03) X10*3/uL Absolute Neuts (auto) 4.2 (2.0-8.3) x10*3/uL Absolute Nucleated RBC 0.000 (0.0-0.012) X10*3/uL Nucleated RBC % (auto) 0.0 (0.0-0.2) /100WBC PT 14.3 H D (10.9-12.4) SEC INR 1.2 H (0.9-1.1) APTT 31.4 (26.7-34.1) SEC Sodium 140 (135-145) mmol/L Potassium 4.1 (3.3-5.1) mmol/L Chloride 104 (96-108) mmol/L Carbon Dioxide 30 H (22-29) mmol/L Anion Gap 10 L (12-20) BUN 24 H (9-16) mg/dL Creatinine 1.03 (0.5-1.4) mg/dL Estim Creat Clear Calc 50.1 Estimated GFR 51 Random Glucose 146 H (60-115) mg/dL Calcium 8.4 (8.4-10.2) mg/dL Total Bilirubin 0.2 (0.0-1.0) mg/dL AST 34 H (5-31) U/L ALT 23 (0-31) U/L Alkaline Phosphatase 72 (39-117) U/L Troponin I High Sens < 2.7 < 2.7 (<3.5-17.0) ng/L Total Protein 7.3 (6.5-8.0) g/dL Albumin 4.0 (3.5-5.0) g/dL Lipase 31 (8-78) U/L Urine Color Yellow Urine Appearance Clear Urine pH 6.0 (5.0-9.0) Ur Specific Cut Off >= 1.030 H (1.005-1.025) Urine Protein Negative (Neg-Trace) mg/dL Urine Glucose (UA) Negative (Negative) mg/dL Urine Ketones Negative (Negative) mg/dL Urine Blood Negative (Negative) Urine Nitrite Negative (Negative) Ur Leukocyte Esterase Small (1+) H (Negative) Urine RBC 0-2 (0-2) /HPF Urine WBC 6-10 H (0-5) /HPF Ur Squamous Epith Cells 0-2 (0-2) /HPF Urine Bacteria None Seen (None Seen) Hyaline Casts 0-2 (0-2) /LPF Independent Interpretation I performed an independent interpretation of an: EKG Radiology Impression Discussion of test interpretation with radiology: I have reviewed the radiologist's reading. Independent Historian Clinical information obtained from an independent historian. History obtained from or confirmed by: Other (patient) Prescription Management I considered prescription management with: Pain Medication Discharge Plan Discharge Clinical Impression: Chest pain, Abdominal pain Patient Disposition: Home, Self-Care Instructions: Chest Pain (ED), Abdominal Pain (ED) Additional Instructions: Your labs were reassuring. Cat scan of chest came back negative for any signs of pulmonary embolus. Recommend discontinuing apixaban. Recommend follow up with the primary care provider. Return to the ED immediately for any chest pain, shortness of breath, abdominal pain fever, chills, coughing up blood, leg swelling, calf pain, or any other concerning symptoms. Tylenol can be used for pain. [address] [address] [address] Scan Report Signed Patient: Noreen Wing MR#: [id number] : 1945 Acct:[id number] Age/Sex: 79 / F ADM Date: 07/28/25 Loc: HO.ED Attending Dr: Ordering Physician: Cuco Amador Date of Service: 07/28/25 Procedure(s): CT angio chest PE protocol Accession Number(s): [id number] cc: Cuco Amador; Name,Nitin PIKE~ Report Number: [id number]: Total DLP = 311.00 mGy-cm Reason for Exam: known PE. worsening pain/pleurisy, new blood clots CLINICAL HISTORY: known PE. worsening pain pleurisy, new blood clots CT angiography chest with contrast. 3D Postprocessing. Comparison: None provided Findings: The heart is top normal in size. RV/LV ratio is normal. The thoracic aorta is normal caliber. No acute pulmonary artery filling defects. No consolidation, pleural effusion or pneumothorax. Calcified nodule in the right lung apex. Thyroid and thoracic esophagus within normal limits. The upper abdomen demonstrates no acute process. Degenerative changes of the thoracic spine. No acute fracture. IMPRESSION: 1. No acute pulmonary embolus. This document has been electronically signed by: Selena Basurto MD on 07/28/2025 20:35:13 rdering Physician: Cuco Amador Date of Service: 07/28/25 Procedure(s): CT abdomen pelvis w IV con Accession Number(s): [id number] cc: Cuco Amador; Name,Nitin PIKE~ Report Number: [id number]: Total DLP = 539.64 mGy-cm Reason for Exam: LUQ pain CLINICAL HISTORY: LUQ pain CT abdomen and pelvis with contrast Comparison: None provided Findings: No consolidation or pleural effusion. The gallbladder is unremarkable. No biliary ductal dilatation. The liver, spleen, pancreas, adrenal glands and the left kidney are within normal limits. 1 cm hypodense lesion in the lower pole of the right kidney likely cyst but too small to be fully characterized. No ureteral stones and no hydronephrosis or hydroureter. No bowel obstruction, pneumoperitoneum, or pneumatosis. Descending and sigmoid colon diverticulosis with no evidence of acute diverticulitis. No free fluid or loculated fluid collection. Normal appendix. Uterus and urinary bladder within normal limits. 1.7 cm left ovarian cyst. Atherosclerotic vascular disease with no aneurysm of the abdominal aorta. No acute fracture. Degenerative changes of the spine and facet arthropathy. IMPRESSION: 1. No acute findings. 2. Diverticulosis with no evidence of acute diverticulitis. 3. Additional nonacute findings as described. This document has been electronically signed by: Selena Basurto MD on 07/28/2025 20:01:24 Prescriptions: No Action metoprolol succinate 50 mg tablet extended release 24 hr 50 mg PO DAILY Qty: 90 2RF valsartan 160 mg tablet 160 mg PO QPM Qty: 90 1RF mirtazapine 45 mg Tablet 45 mg PO BEDTIME omeprazole 20 mg Tablet,Delayed Release (Dr/Ec) 20 mg PO DAILY@0630 fluticasone propionate [Flonase Allergy Relief] 50 mcg/actuation spray,suspension 2 spray intranasal DAILY Qty: 16 0RF Rx Instructions: administer into each nostril hydroxyzine HCl 25 mg tablet 25 mg PO TID PRN (Reason: anxiety) Qty: 6 0RF hydroxyzine HCl 25 mg tablet 25 mg PO TID PRN (Reason: anxiety) Qty: 20 0RF miconazole nitrate 2 % cream 1 appl topical BID Qty: 28 0RF azithromycin [Zithromax] 250 mg tablet 250 mg PO DAILY 4 Days Qty: 4 0RF Rx Instructions: start on day 2 of therapy clonazepam 0.5 mg tablet 0.5 mg PO DAILY Qty: 4 0RF meclizine 12.5 mg tablet 12.5 mg PO TID PRN (Reason: dizziness or vertigo) Qty: 30 0RF apixaban 5 mg tablet See Rx Instructions .ROUTE .COMPLEX Qty: 74 0RF Rx Instructions: Take 2 tablets (10mg) twice daily for the first 7 days THEN Take 1 tablet (5mg) twice daily for the remainder of the prescription. trazodone 50 mg tablet 50 mg PO BEDTIME ferrous sulfate [FeroSul] 325 mg (65 mg iron) tablet 325 mg PO DAILY diphenhydramine HCl [Lou-Dryl] 25 mg tablet 25 mg PO BEDTIME PRN (Reason: itch) bisacodyl 5 mg tablet,delayed release (DR/EC) 5 mg PO DAILY PRN (Reason: constipation) rosuvastatin 20 mg tablet 20 mg PO BEDTIME aspirin 81 mg tablet,delayed release (DR/EC) 81 mg PO QAM multivitamin Tablet 1 tab PO QAM melatonin 10 mg tablet extended release 10 mg PO BEDTIME PRN (Reason: Insomnia) cholecalciferol (vitamin D3) 25 mcg (1,000 unit) tablet 25 mcg PO DAILY ondansetron 4 mg tablet,disintegrating 4 mg PO Q6H PRN (Reason: nausea and vomiting) Qty: 10 0RF acetaminophen 500 mg tablet 500 mg PO Q8H PRN (Reason: pain) zolpidem 5 mg tablet 5 mg PO BEDTIME PRN (Reason: Insomnia) ipratropium bromide 21 mcg (0.03 %) spray,non-aerosol 2 spray intranasal BID clonazepam 0.5 mg Tablet 0.5 mg PO TID Qty: 180 0RF gabapentin 100 mg Capsule 100 mg PO TID Qty: 180 0RF nitrofurantoin monohyd/m-cryst [Macrobid] 100 mg capsule 100 mg PO Q12H 3 Days Qty: 6 0RF Rx Instructions: must administer with a meal/food miconazole nitrate [Monistat 7] 2 % cream 1 appful vaginal BEDTIME 7 Days Qty: 45 0RF ofloxacin 0.3 % drops 10 drp otic (ears) DAILY 7 Days Qty: 5 0RF docusate sodium [Col-Rite] 100 mg capsule 200 mg PO BID Qty: 30 0RF polyethylene glycol 3350 [ClearLax] 17 gram/dose powder 17 g PO Q8H Qty: 238 0RF Advanced Healing (Petrolatum) 41 % ointment 1 appl topical BID PRN (Reason: irritated skin) Qty: 50 0RF docusate sodium [Colace] 100 mg capsule 200 mg PO BID Qty: 20 0RF polyethylene glycol 3350 [Miralax] 17 gram/dose powder 17 g PO BID Qty: 119 0RF simethicone 180 mg capsule 180 mg PO BID PRN (Reason: abdominal distention) Qty: 14 0RF acetaminophen 500 mg tablet 500 mg PO Q6H PRN (Reason: fever or pain) Qty: 30 0RF meclizine 12.5 mg tablet 12.5 mg PO TID PRN (Reason: vertigo) 5 Days Qty: 20 0RF ibuprofen 200 mg tablet 200 mg PO Q6H PRN (Reason: pain) Qty: 20 0RF sertraline 100 mg tablet 100 mg PO DAILY amlodipine 10 mg tablet 10 mg PO DAILY meclizine 25 mg tablet 25 mg PO DAILY PRN Referrals: Name,MD Nitin [Primary Care Provider, Internal Medicine] - 2 days Referral Note: Chest pain, abdominal pain Clinical Impression: Abdominal pain; Chest pain Interventions: ED Discharge Assessment Last Done: 07/28/25 21:53 Discharge Date/Time: 07/28/25 21:59 Print Language: Congolese
[2025-07-28 17:22] LABS: Alanine Aminotransferase 23 U/L (0-31); Albumin Level 4.0 g/dL (3.5-5.0); Alkaline Phosphatase 72 U/L (39-117); Anion Gap 10 (12-20); Aspartate Amino Transferase 34 U/L (5-31); Blood Urea Nitrogen 24 mg/dL (9-16); Calcium 8.4 mg/dL (8.4-10.2); Carbon Dioxide 30 mmol/L (22-29); Chloride 104 mmol/L (96-108); Creatinine Clr Calc Pharmacy 50.1; Estimated Glomerular Filt Rate 51; Lipase 31 U/L (8-78); Potassium 4.1 mmol/L (3.3-5.1); Sodium 140 mmol/L (135-145); Total Protein 7.3 g/dL (6.5-8.0)
--- OUTSIDE RECORDS SUMMARY | 2025-07-28 17:23 | XMS_ITS | Clinical Summary ---
Author Organization [facility] Facility Address [address] [address] Care Team Providers Care [employer] Name Role Phone Name, Nitin PIKE Primary Care Provider [phone] Allergies Active Allergy Reactions Criticality Noted Date [...] patient's age to complete this topic [place] [address] MCR ([id number]) [place] [phone] [facility] MCR ([id number]) Care Teams [employer] Relationship Specialty Start Date End Date Name, MD Nitin [address] [place] [id number] PCP - General Internal Medicine 10/15/22
--- OUTSIDE RECORDS SUMMARY | 2025-07-28 17:23 | XMS_ITS | Clinical Summary ---
Author Organization [facility] Address [address] [place] [address] Phone Care Team Providers Care Coater Slate Name Role Phone Physician, No Pcp Primary [...] Resul t [facility] [address] [place] [address], from Last 3 Months or Most Recently Relevant to Health Maintenance Insurance [facility] MEDIC[facility] Member Subscriber Plan / Payer (Ef fective 2021-Present) Name:Noreen Wing Relation to Subscriber:Self Name:Noreen Wing Payer ID:[id number] Group ID:[id number] Type:Not on file Address: [address] [address] [phone] Care Teams Coater Slate Relationship Specialty Start Date End Date Physician, No Pcp PCP - General 09/22/24
[2025-07-28 17:30] LABS: Troponin-I High Sensitivity < 2.7 ng/L (<3.5-17.0)
[2025-07-28 17:57] LABS: INTERNATIONAL NORM RATIO 1.2 (0.9-1.1); Prothrombin Time 14.3 SEC (10.9-12.4)
[2025-07-28 18:00] LABS: Partial Thromboplastin Time 31.4 SEC (26.7-34.1)
[2025-07-28] MEDS: iohexoL 350 MG/ML 100 ML INFUS..BTL 85 ML IV (18:36)
[2025-07-28 20:15] VITALS: BP 145/78; PULSE 70; RESP 18; TEMP 36.6; O2SAT 98
[2025-07-28 20:32] LABS: Appearance Urine Clear; Glucose Urine UA Negative (Negative); PH 6.0 (5.0-9.0); Specific Gravity - Urine >= 1.030 (1.005-1.025); UMIC TRIGGER UACC YES
[2025-07-28 20:40] LABS: Troponin-I High Sensitivity < 2.7 ng/L (<3.5-17.0)
[2025-07-28 21:26] LABS: UACC Culture Trigger YES
[2025-07-28 21:53] VITALS: BP 113/66; PULSE 71; RESP 13; TEMP 36.7; O2SAT 95
== END 2025-07-28 21:59 | disposition home or self-care (01) ==
PROVIDERS: Physician Assistant; Emergency Provider Emergency Medicine; PCP Internal Medicine Geriatric Medicine
DX: R10.12 Left upper quadrant pain (principal); R07.89 Other chest pain; R10.2 Pelvic and perineal pain; Z79.899 Other long term (current) drug therapy
CPT/HCPCS: 36415; 71275; 74177; 80053; 81001; 81003; 83690; 84484; 85025; 85610; 85730; 87086; 93005; 96374; 99285; J2270; Q9967

== ENCOUNTER → 2025-07-28 16:39 | Outpatient (BNV) | payer OTHER, SELFPAY | PROVIDERS: Emergency Provider Emergency Medicine; PCP Internal Medicine Geriatric Medicine; Visit Provider Internal Medicine | DX: I49.9 Cardiac arrhythmia, unspecified (principal) | CPT/HCPCS: 93010 ==

== ENCOUNTER → 2025-07-28 16:54 | Outpatient (BNV) | payer OTHER, SELFPAY | PROVIDERS: Emergency Provider Emergency Medicine; PCP Internal Medicine Geriatric Medicine; Visit Provider Specialist | DX: K57.30 Diverticulosis of large intestine without perforation or abscess without bleeding (principal); R10.84 Generalized abdominal pain; R91.1 Solitary pulmonary nodule; R07.9 Chest pain, unspecified | CPT/HCPCS: 71275; 74177 ==

== ENCOUNTER 2025-08-07 07:53 | Emergency (ER) | payer OTHER, SELFPAY ==
[2025-08-07 07:55] VITALS: BP 137/71; BP 162/110; PULSE 105; PULSE 80; RESP 17; TEMP 36.8; O2SAT 95; O2SAT 96; BMI 34.2
--- NOTE | 2025-08-07 08:22 | ED.GENADULT ---
HPI - General Adult General Chief complaint: Headache Stated complaint: BACK HEAD PAIN Time Seen by Provider: 08/07/25 07:57 Source: patient Mode of arrival: ambulatory Limitations: no limitations and language barrier History of Present Illness ED Provider: HPI narrative: 79-year-old woman with a history of anxiety, complaining of left-sided suboccipital pain that she states has been going on for the past 3 days, has been using Tylenol at home without relief, this is her 7th ER visit this month. During this month she has had a visit where she was started on Eliquis and that is subsequent study showed that there was no PE so she is not on blood thinners. No fevers or chills no nausea no vomiting reported. Reporting anxiety Related Data Home Medications ?Medication ?Instructions ?Recorded ?Confirmed mirtazapine 45 mg tablet 45 mg PO BEDTIME 08/09/20 03/16/25 omeprazole 20 mg tablet,delayed 20 mg PO DAILY@0630 08/09/20 03/16/25 release aspirin 81 mg tablet,delayed 81 mg PO QAM 01/28/24 03/16/25 release bisacodyl 5 mg tablet,delayed 5 mg PO DAILY PRN constipation 01/28/24 03/16/25 release diphenhydramine HCl 25 mg tablet 25 mg PO BEDTIME PRN itch 01/28/24 03/16/25 (Lou-Dryl) ferrous sulfate 325 mg (65 mg 325 mg PO DAILY 01/28/24 03/16/25 iron) tablet (FeroSul) melatonin 10 mg tablet,extended 10 mg PO BEDTIME PRN Insomnia 01/28/24 03/16/25 release multivitamin 1 tab PO QAM 01/28/24 03/16/25 rosuvastatin 20 mg tablet 20 mg PO BEDTIME 01/28/24 03/16/25 trazodone 50 mg tablet 50 mg PO BEDTIME 01/28/24 03/16/25 amlodipine 10 mg tablet 10 mg PO DAILY 02/09/24 03/16/25 acetaminophen 500 mg tablet 500 mg PO Q8H PRN pain 08/09/24 03/16/25 ipratropium bromide 21 mcg (0.03 2 spray intranasal BID 08/09/24 03/16/25 %) nasal spray zolpidem 5 mg tablet 5 mg PO BEDTIME PRN Insomnia 08/09/24 03/16/25 cholecalciferol (vitamin D3) 25 25 mcg PO DAILY 08/20/24 03/16/25 mcg (1,000 unit) tablet meclizine 25 mg tablet 25 mg PO DAILY PRN 09/29/24 03/16/25 sertraline 100 mg tablet 100 mg PO DAILY 03/16/25 03/16/25 Previous Rx's ?Medication ?Instructions ?Recorded metoprolol succinate 50 mg 50 mg PO DAILY #90 tabs 09/28/20 tablet,extended release 24 hr fluticasone propionate 50 2 spray intranasal DAILY #16 grams 09/16/23 mcg/actuation nasal spray,suspension (Flonase Allergy Relief) ondansetron 4 mg disintegrating 4 mg PO Q6H PRN nausea and 04/28/24 tablet vomiting #10 tabs hydroxyzine HCl 25 mg tablet 25 mg PO TID PRN anxiety #6 tabs 08/07/24 clonazepam 0.5 mg tablet 0.5 mg PO TID #180 tabs 08/10/24 gabapentin 100 mg capsule 100 mg PO TID #180 caps 08/10/24 hydroxyzine HCl 25 mg tablet 25 mg PO TID PRN anxiety #20 tabs 09/09/24 miconazole nitrate 2 % vaginal 1 appful vaginal BEDTIME 7 days 10/09/24 cream (Monistat 7) #45 grams nitrofurantoin 100 mg PO Q12H 3 days #6 caps 10/09/24 monohydrate/macrocrystals 100 mg capsule (Macrobid) miconazole nitrate 2 % topical 1 appl topical BID #28 grams 01/01/25 cream ofloxacin 0.3 % ear drops 10 drp otic (ears) DAILY 7 days #5 02/01/25 mL docusate sodium 100 mg capsule 200 mg (2 x 100 mg) PO BID #30 caps 02/07/25 (Col-Rite) polyethylene glycol 3350 17 17 g PO Q8H #238 grams 02/07/25 gram/dose oral powder (ClearLax) white petrolatum 41 % topical 1 appl topical BID PRN irritated 02/07/25 ointment (Advanced Healing skin #50 grams (Petrolatum)) azithromycin 250 mg tablet 250 mg PO DAILY 4 days #4 tabs 02/14/25 (Zithromax) docusate sodium 100 mg capsule 200 mg (2 x 100 mg) PO BID #20 caps 02/24/25 (Colace) polyethylene glycol 3350 17 17 g PO BID #119 grams 02/24/25 gram/dose oral powder (Miralax) simethicone 180 mg capsule 180 mg PO BID PRN abdominal 03/03/25 distention #14 caps clonazepam 0.5 mg tablet 0.5 mg PO DAILY #4 tabs 04/17/25 acetaminophen 500 mg tablet 500 mg PO Q6H PRN fever or pain 05/04/25 #30 tabs meclizine 12.5 mg tablet 12.5 mg PO TID PRN vertigo 5 days 07/18/25 #20 tabs valsartan 160 mg tablet 160 mg PO QPM #90 tabs 07/18/25 ibuprofen 200 mg tablet 200 mg PO Q6H PRN pain #20 tabs 07/24/25 meclizine 12.5 mg tablet 12.5 mg PO TID PRN dizziness or 07/26/25 vertigo #30 tabs apixaban 5 mg tablet See Rx Instructions .Route 07/27/25 .COMPLEX #74 tabs naproxen 500 mg tablet 500 mg PO BID 5 days #10 tabs 08/07/25 Allergies Allergy/AdvReac Type Severity Reaction Status Date / Time penicillin G (Penicillin G) Allergy Severe ITCHY/RASH Verified 08/07/25 07:57 Sulfa (Sulfonamide Allergy Severe ITCHY,RASH, Verified 08/07/25 07:57 Antibiotics) (Sulfa rash (Sulfonamides)) trimethoprim (From Bactrim) Allergy Severe HIVES Verified 08/07/25 07:57 Penicillins Allergy Intermediate Hives Verified 08/07/25 07:57 sulfamethoxazole (From Allergy Mild Hives Verified 08/07/25 07:57 Bactrim) Review of Systems Constitutional: Constitutional: Reports as per [facility] Past Medical History 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) Alcohol intake: never Patient Tobacco Use Status: Never used Tobacco Advance Directives: Yes Advance Directives on File: Yes Advance Directives Date on File: 01/28/24 Do you have a plan to hurt others: No Plan service: No Physical Exam ED Vital Signs: Vital Signs - 24 hr 08/07/25 07:55 Temperature 98.3 F Pulse Rate 80 Respiratory Rate 17 Blood Pressure 137/71 Pulse Oximetry 96 Oxygen Delivery Method Room Air BMI result Body Mass Index 34.2 Const Other: Gen: ?Overall well-appearing patient, no facial trauma no head trauma HEENT: No tenderness along mastoid process, she has tenderness along the suboccipital area, without rashes, without cervical spine tenderness full range of motion of the neck, examination of tympanic membranes without erythema or drainage, oropharyngeal examination with the uvula midline, Neck: No tenderness no lymphadenopathy of the neck Resp: ?No wheezing rales rhonchi no stridor moving air well Skin: Warm, dry, intact, Neuro: ?Alert and oriented x3, moving upper and lower extremities symmetrically, no obvious facial asymmetry noted Medical Decision Making Medical Decision Making MDM Narrative: 8:25 AM 08/07/2025 (Dr. Rafael Calderon): Multiple ER visits this month, physical examination reassuring without any evidence of infection along the mastoid, otitis media otitis externa there was no evidence for ENT infections, otherwise she is moving upper and lower extremities symmetrically without sensory motor deficits see my discharge instructions Differential Diagnosis Differential Diagnoses: The differential diagnosis associated with the presentation includes (Acute otitis media, otitis externa, mastoiditis, spasm, occipital neuralgia, deep space infection of the oropharynx or the neck) Discharge Plan Discharge Clinical Impression: Neck pain Patient Disposition: Home, Self-Care Additional Instructions: You can take Naprosyn 500 mg twice daily this was sent to the pharmacy, heat packs to the area, physical examination is reassuring, this is your 6-7 ER visit this month I would like you to make an appointment to see your primary care provider please. I reviewed your prior this month blood work, CAT scans that you have had Prescriptions: New naproxen 500 mg tablet 500 mg PO BID 5 Days Qty: 10 0RF No Action metoprolol succinate 50 mg tablet extended release 24 hr 50 mg PO DAILY Qty: 90 2RF valsartan 160 mg tablet 160 mg PO QPM Qty: 90 1RF mirtazapine 45 mg Tablet 45 mg PO BEDTIME omeprazole 20 mg Tablet,Delayed Release (Dr/Ec) 20 mg PO DAILY@0630 fluticasone propionate [Flonase Allergy Relief] 50 mcg/actuation spray,suspension 2 spray intranasal DAILY Qty: 16 0RF Rx Instructions: administer into each nostril hydroxyzine HCl 25 mg tablet 25 mg PO TID PRN (Reason: anxiety) Qty: 6 0RF hydroxyzine HCl 25 mg tablet 25 mg PO TID PRN (Reason: anxiety) Qty: 20 0RF miconazole nitrate 2 % cream 1 appl topical BID Qty: 28 0RF azithromycin [Zithromax] 250 mg tablet 250 mg PO DAILY 4 Days Qty: 4 0RF Rx Instructions: start on day 2 of therapy clonazepam 0.5 mg tablet 0.5 mg PO DAILY Qty: 4 0RF meclizine 12.5 mg tablet 12.5 mg PO TID PRN (Reason: dizziness or vertigo) Qty: 30 0RF apixaban 5 mg tablet See Rx Instructions .ROUTE .COMPLEX Qty: 74 0RF Rx Instructions: Take 2 tablets (10mg) twice daily for the first 7 days THEN Take 1 tablet (5mg) twice daily for the remainder of the prescription. trazodone 50 mg tablet 50 mg PO BEDTIME ferrous sulfate [FeroSul] 325 mg (65 mg iron) tablet 325 mg PO DAILY diphenhydramine HCl [Lou-Dryl] 25 mg tablet 25 mg PO BEDTIME PRN (Reason: itch) bisacodyl 5 mg tablet,delayed release (DR/EC) 5 mg PO DAILY PRN (Reason: constipation) rosuvastatin 20 mg tablet 20 mg PO BEDTIME aspirin 81 mg tablet,delayed release (DR/EC) 81 mg PO QAM multivitamin Tablet 1 tab PO QAM melatonin 10 mg tablet extended release 10 mg PO BEDTIME PRN (Reason: Insomnia) cholecalciferol (vitamin D3) 25 mcg (1,000 unit) tablet 25 mcg PO DAILY ondansetron 4 mg tablet,disintegrating 4 mg PO Q6H PRN (Reason: nausea and vomiting) Qty: 10 0RF acetaminophen 500 mg tablet 500 mg PO Q8H PRN (Reason: pain) zolpidem 5 mg tablet 5 mg PO BEDTIME PRN (Reason: Insomnia) ipratropium bromide 21 mcg (0.03 %) spray,non-aerosol 2 spray intranasal BID clonazepam 0.5 mg Tablet 0.5 mg PO TID Qty: 180 0RF gabapentin 100 mg Capsule 100 mg PO TID Qty: 180 0RF nitrofurantoin monohyd/m-cryst [Macrobid] 100 mg capsule 100 mg PO Q12H 3 Days Qty: 6 0RF Rx Instructions: must administer with a meal/food miconazole nitrate [Monistat 7] 2 % cream 1 appful vaginal BEDTIME 7 Days Qty: 45 0RF ofloxacin 0.3 % drops 10 drp otic (ears) DAILY 7 Days Qty: 5 0RF docusate sodium [Col-Rite] 100 mg capsule 200 mg PO BID Qty: 30 0RF polyethylene glycol 3350 [ClearLax] 17 gram/dose powder 17 g PO Q8H Qty: 238 0RF Advanced Healing (Petrolatum) 41 % ointment 1 appl topical BID PRN (Reason: irritated skin) Qty: 50 0RF docusate sodium [Colace] 100 mg capsule 200 mg PO BID Qty: 20 0RF polyethylene glycol 3350 [Miralax] 17 gram/dose powder 17 g PO BID Qty: 119 0RF simethicone 180 mg capsule 180 mg PO BID PRN (Reason: abdominal distention) Qty: 14 0RF acetaminophen 500 mg tablet 500 mg PO Q6H PRN (Reason: fever or pain) Qty: 30 0RF meclizine 12.5 mg tablet 12.5 mg PO TID PRN (Reason: vertigo) 5 Days Qty: 20 0RF ibuprofen 200 mg tablet 200 mg PO Q6H PRN (Reason: pain) Qty: 20 0RF sertraline 100 mg tablet 100 mg PO DAILY amlodipine 10 mg tablet 10 mg PO DAILY meclizine 25 mg tablet 25 mg PO DAILY PRN Print Language: Tunisian
[2025-08-07 08:30] VITALS: BP 131/70; PULSE 76; RESP 17; TEMP 36.8; O2SAT 96
--- NOTE | 2025-08-07 08:32 | PC.NURSE ---
pt medicated per provider order. effectiveness pending.
[2025-08-07 08:35] VITALS: BP 131/70; PULSE 76; RESP 17; TEMP 36.8; O2SAT 96
--- NOTE | 2025-08-07 08:43 | PC.NURSE ---
long term care pharmacist utilized for d/c.
== END 2025-08-07 08:43 | disposition home or self-care (01) ==
PROVIDERS: Emergency Provider Emergency Medicine; PCP Internal Medicine Geriatric Medicine
DX: M54.2 Cervicalgia (principal); R51.9 Headache, unspecified; M54.50 Low back pain, unspecified; Z79.01 Long term (current) use of anticoagulants; Z79.899 Other long term (current) drug therapy
CPT/HCPCS: 96372; 99284; J1885

== ENCOUNTER 2025-08-18 08:32 | Outpatient (REF) | payer OTHER, SELFPAY ==
[2025-08-18 11:50] LABS: Anion Gap 11 (12-20); Blood Urea Nitrogen 19 mg/dL (9-16); Calcium 9.3 mg/dL (8.4-10.2); Carbon Dioxide 30 mmol/L (22-29); Chloride 101 mmol/L (96-108); Estimated Glomerular Filt Rate 57; Potassium 4.6 mmol/L (3.3-5.1); Sodium 137 mmol/L (135-145)
== END 2025-08-18 08:33 | disposition home or self-care (01) ==
LOC: HO.HHCL 08:32
PROVIDERS: Internal Medicine Hypertension Specialist; PCP Internal Medicine Geriatric Medicine; Visit Provider Registered Nurse Psychiatric/Mental Health
DX: E87.1 Hypo-osmolality and hyponatremia (principal)
CPT/HCPCS: 36415; 80048

== ENCOUNTER 2025-08-20 08:26 | Emergency (ER) | payer OTHER, SELFPAY ==
[2025-08-20 08:31] VITALS: BP 125/67; BP 158/90; PULSE 80; PULSE 84; RESP 16; TEMP 36.8; O2SAT 96; O2SAT 97; BMI 25.8
--- OUTSIDE RECORDS SUMMARY | 2025-08-20 08:56 | XMS_ITS | Encounter Summary ---
Author Organization [employer] Address [address] [place] [address] Care Team Providers Care Chipper Operator Name Role Phone Name, Nitin PIKE Primary Care Provider [phone] Reason for Visit * Reason Onset Date Comments Hospital Follow-up 10/20/2024 Encounter Details Date Type Department Care Team ([facility] Contact Info) Description 10/20/2024 Telephone [facility] MEDICINE [address], [place] [id number] Name, MD Nitin [address] [place] [address] Hospital Follow-up Social History Tobacco Use Types [...] from pt requesting a HDF appt. [place] [facility] Date of admission: 10/17 Discharge date: 10/19 Diagnosed: High Blood Pressure and Fever Contact pt at [phone] *Send message to [place] Clinical Care Coordinators documented in this encounter Plan of Treatment Upcoming Encounters Date Type Department Care Team (Late st Contact Info) Description 11/07/2025 10:00 AM EST Office Visit [facility] MEDICINE [address] [place] [address] Name, MD Nitin [address] [place] [address] documented as of this encounter Visit Diagnoses Not on filedocumented in this encounter Additional Health Concerns Assessment Noted Time PHQ-9 Depression Total Score: 6 02/13/20 24 9:14 AM EDT documented as of this encounter Care Teams Chipper Operator Relationship Specialty Start Date End Date Name, MD Nitin [address] [place] [address] PCP - General Family Medicine 08/26/17 [facility] 09/01/24 documented as of this encounter
--- OUTSIDE RECORDS SUMMARY | 2025-08-20 08:56 | XMS_ITS | Clinical Summary ---
Author Organization [facility] Address [address] [place] [address] Phone Care Team Providers Care Sign Carpenter Name Role Phone Physician, No Pcp Primary [...] [facility] Comment:Calculation based on the Chronic [...] 3:15 AM EST [facility] Blood Venous blood specimen / Unknown Venipuncture / Unknown 09/22/2024 2:28 AM EST 09/22/2024 2:31 AM EST Paul RUI[facility] LAB BLOOD ORDERABLES Final Resul t [facility] [address] [place] [address], from Last 3 Months or Most Recently Relevant to Health Maintenance Insurance [facility] Member Subscriber Plan / Payer (Ef fective 2021-Present) Name:Noreen Wing Relation to Subscriber:Self Name:Noreen Wing Payer ID:[id number] Group ID:[id number] Type:Not on file Address: [place] [address] [address] Care Teams Sign Carpenter Relationship Specialty Start Date End Date Physician, No Pcp PCP - General 09/22/24
--- OUTSIDE RECORDS SUMMARY | 2025-08-20 08:56 | XMS_ITS | Encounter Summary ---
Author Organization [employer] Address [address] [place] [address] Care Team Providers Care Attendant [employer] Store Name Role Phone Name, Nitin PIKE Primary Care Provider [phone] Reason for Visit * Reason Comments Med Refill Encounter Details Date Type Department Care Team (Late st Contact Info) Description 08/14/2025 Refill [facility] [address] [place], [place] [phone] Name, MD Nitin [address] [place] [address] Heartburn; Vitamin D deficiency Social History Tobacco Use [...] housing situation today? I have claus rawls 08/09/[address] you li ve. Do you have problems with any of the following? None of the above 08/09/2025 Food Insecurity Answer Date Recorded Within the past 12 months, y ou worried that your food would run out before you got money to buy more: Never True 08/09/2025 Within the past 12 months,th e food you bought just didn't last and you didn't have enough money to get more: Never True Transportation Answer Date Recorded In the past 12 months, has l ack of transportation kept you from medical appts, meetings, work or from getting things needed for daily living? No 08/09/2025 Utilities Answer Date Recorded In the past 12 months, has t he electric, gas, oil or water company threatened to shut off services in your home? No 08/09/2025 Depression Answer Date Recorded Patient Health Questionnaire-2 Score 3 04/29/2025 Internet Access Answer Date Recorded Internet Access Q1 Yes 08/09/2025 Internet Access Q2 Not on file 08/09/2025 Comments Unknown Sex and Gender Information Value Date Recorded Sex Assigned at Female 09/09/2022 10:14 AM EDT Legal Sex Female 10:14 AM EDT Gender Identity Female 04/01/2023 9:37 AM EDT Sexual Orientation Choose not to disclose 2021 10:14 AM EDT documented as of this encounter Miscellaneous Notes * Telephone Encounter - Giuliana Villeda RN - 08/16/2025 3:08 PM EDT Per review of PCP note, PCP recommended at visit on 08/09/25 the following: I recommended to stop the Eliquis and the aspirin. TC placed to pt via [employer] fishing worker (Monie ID#[id number]) to confirm medications requesting for refill and advise of above message as needed. Call rings but no one answers and no option to leave voicemail. Per received message pt needs refills on the following: Aspirin, Vitamin, Amlodipine, Rosuvastation, Multivitamin, Ferrous Sulfate. Pt is not to be on aspirin perPCP visit note on 08/09/25. TC placed to [facility] pharmacy to determine which medications require refill. Confirmed below with pharmacy. Pharmacy state pt due for refill of metoprolol but per review of chart, not prescribed by PCP. Medicationsdue for refill pended to PCP for review. -amLODIPine (Norvasc) 10 MG tablet: does not need refill at this time -rosuvastatin (Crestor) 20 MG tablet: will be using the last of the current script -Multiple Vitamin (Multivitamin) tablet: will be using the last of the current script -Ferrous Sulfate (iron) 325 (65 Fe) MG tablet: needs refill -cholecalciferol (Vitamin D-3) 25 MCG tablet: needs refill * Telephone Encounter - Jennifer Clifford - 08/16/2025 1:56 PM EDT Patient walked into the [facility] to request medication refills for Aspirin, Vitamin, Amlodipine, Rosuvastation, Multivitamin, Ferrous Sulfate. Pharmacy of choice is [facility] pharmacy. documented in this encounter Plan of Treatment Upcoming Encounters Date Type Department Care Team (Late st Contact Info) Description 11/07/2025 10:00 AM EST Office Visit [facility] MEDICINE [address] [place] [phone] Name, MD Nitin [address] [place] [phone] documented as of this encounter Visit Diagnoses Diagnosis Heartburn Vitamin D deficiency documented in this encounter Additional Health Concerns Assessment Noted Time PHQ-9 Depression Total Score: 3 04/29/20 25 9:41 AM EDT documented as of this encounter Care Teams Attendant Self [employer] Store Relationship Specialty Start Date End Date NameNitin MD [address] [place] [phone] PCP - General Family Medicine 08/26/17 [facility] 09/01/24 documented as of this encounter
--- OUTSIDE RECORDS SUMMARY | 2025-08-20 08:56 | XMS_ITS | Clinical Summary ---
Author Organization [employer] Address [address] [place] [address] [address] [address] Care Team Providers Care Studio Owner Name Role Phone Name, Nitin PIKE Primary Care Provider [phone] Allergies Active Allergy Reactions Criticality Noted Date [...] (twelve) hours. 30 mL 2 024 Active Bisacodyl EC 5 MG EC [...] by mouth in the morning. 024 Active linaCLOtide (Linzess) 145 MCG capsuleIndication s:Chronic [...] times daily for 7 days. 21 tablet Active Ketotifen Fumarate 0.035 % solutionIndicatio ns:Acute conjunctivitis of left eye, unspecified acute conjunctivitis type Administer 1 drop into affected eye(s) if needed in the morning and at bedtime (allergies). 10 mL 025 Active amLODIPine (Norvasc) 10 MG tabletIndications :Hypertension, unspecified type TAKE 1 TABLET BY MOUTH EVERY MORNING 90 tablet 1 Active hydrOXYzine pamoate (Vistaril) 50 MG capsuleIndication s:Generalized anxiety disorder with panic attacks TAKE 1 CAPSULE BY MOUTH EVERY 8 HOURS NEEDED FOR ANXIETY 30 capsule Active Acetaminophen Extra Strength 500 MG tabletIndications :Chronic bilateral low back pain without sciatica TAKE 1 TABLET BY MOUTH EVERY 8 HOURS NEEDED FOR PAIN (SINGAPOREAN LABEL) 90 tablet 025 Active omeprazole (PriLOSEC) [address] capsuleIndication s:Heartburn TAKE 1 CAPSULE BY MOUTH EVERY MORNING 1 HOUR BEFORE BREAKFAST 90 capsule 1 025 Active rosuvastatin (Crestor) 20 MG tablet Take 1 tablet (20 mg) by mouth at bedtime. 90 tablet 3 025 Active Multiple Vitamin (Multivitamin) tablet Take 1 tablet by mouth in the morning. 90 tablet 3 025 Active Ferrous Sulfate (iron) 325 (65 Fe) MG tablet TAKE 1 TABLET BY MOUTH EVERY MORNING WITH FOOD 30 tablet 025 Active cholecalciferol (Vitamin D-3) 25 MCG tabletIndications :Vitamin D deficiency Take 1 tablet (25 mcg) by mouth 2 times daily. 60 tablet 025 Active docusate sodium (Colace) 100 MG capsule TAKE 2 CAPSULES BY MOUTH TWICE DAILY IN THE MORNING AND EVENING 120 capsule 3 025 Active gabapentin (Neurontin) 100 MG capsule 024 2024 Discontinued(T herapy completed) azithromycin (Zithromax Z-Alirio) 250 MG tablet Take 2 tabs day 1 and then 1 tab daily to finish 6 tablet 2024 Discontinued(T herapy completed) Acetaminophen Extra Strength 500 MG tabletIndications :Chronic bilateral low back pain without sciatica TAKE 1 TABLET BY MOUTH EVERY 8 HOURS NEEDED FOR PAIN (SINGAPOREAN LABEL) 90 tablet 2024 Discontinued(R eorder (will not trigger notification to Pharmacy)) ammonium lactate (Lac-Hydrin) 12 % lotion APPLY TOPICALLY TWICE DAILY IN THE MORNING AND AT BEDTIME FOR DRY SKIN 2024 Discontinued(T herapy completed) Multiple Vitamin (Multivitamin) tablet TAKE 1 TABLET BY MOUTH EVERY MORNING 90 tablet 3 2024 Discontinued(R eorder (will not trigger notification to Pharmacy)) rosuvastatin (Crestor) 20 MG tablet TAKE 1 TABLET BY MOUTH EVERY EVENING 90 tablet 3 024 2024 Discontinued(R eorder (will not trigger notification to Pharmacy)) zolpidem (Ambien) 5 MG tabletIndications :Primary insomnia Take 1 tablet (5 mg) by mouth if needed at bedtime for sleep for up to 7 days. 7 tablet 2024 Discontinued(D uplicate order (will not trigger notification to Pharmacy)) hydrOXYzine pamoate (Vistaril) 50 MG capsuleIndication s:Generalized anxiety disorder with panic attacks TAKE 1 CAPSULE BY MOUTH EVERY 8 HOURS NEEDED FOR ANXIETY 30 capsule 025 2024 Discontinued(R eorder (will not trigger notification to Pharmacy)) omeprazole (PriLOSEC) [address] capsuleIndication s:Heartburn TAKE 1 CAPSULE BY MOUTH EVERY MORNING 1 HOUR BEFORE BREAKFAST 90 capsule 1 025 2024 Discontinued(R eorder (will not trigger notification to Pharmacy)) gabapentin (Neurontin) 100 MG capsule Take 1 capsule (100 mg) by mouth 2 times daily for 1 day. 2 capsule 025 2024 Discontinued(T herapy completed) Aspirin Low Dose 81 MG EC tabletIndications :Prediabetes TAKE 1 TABLET BY MOUTH EVERY MORNING 90 tablet 1 025 2024 Discontinued cholecalciferol (Vitamin D-3) 25 MCG tabletIndications :Vitamin D deficiency TAKE 1 TABLET BY MOUTH TWICE DAILY IN THE MORNING AND IN THE EVENING 60 tablet 025 2024 Discontinued(R eorder (will not trigger notification to Pharmacy)) docusate sodium (Colace) 100 MG capsule TAKE 2 CAPSULES BY MOUTH TWICE DAILY 120 capsule 025 2024 Discontinued(R eorder (will not trigger notification to Pharmacy)) Ferrous Sulfate (iron) 325 (65 Fe) MG tablet TAKE 1 TABLET BY MOUTH EVERY MORNING WITH FOOD 30 tablet 025 2024 Discontinued(R eorder (will not trigger notification to Pharmacy)) docusate sodium (Colace) 100 MG capsule TAKE 2 CAPSULES BY MOUTH TWICE DAILY 120 capsule 025 2024 Discontinued cholecalciferol (Vitamin D-3) 25 MCG tabletIndications :Vitamin D deficiency Take 1 tablet (25 mcg) by mouth 2 times daily. 60 tablet 025 2024 Discontinued(R eorder (will not trigger notification to Pharmacy)) Active Problems Problem Noted Date Diagnosed Date Viral pharyngitis 11/12/2024 Assessment & Plan (11/12/2024 9:40 AM EST): Symptomatic measures Rest Major neurocognitive disorder (CMS/HCC) 11/02/20 Acute otitis media 04/22/2024 Diarrhea 02/12/2024 Nausea 02/12/2024 Difficult Shen catheter placement 02/11/2024 Hematuria 02/11/2024 Urinary retention 02/11/2024 Arthritis 12/18/2023 12/18/2023 Left ear impacted cerumen 12/18/20232023 History of myringotomy 12/18/2023 Overview (12/18/2023): Left sided with tube back on 2010 Abdominal pain 08/19/2023 08/19/2023 Fall 05/28/2023 Chronic hyponatremia 05/28/2023 Medication refill 05/28/2023 Bleeding hemorrhoids 04/23/2023 PAC (premature atrial contraction) 04/23/2023 PVC (premature ventricular contraction) 04/23/20 Low [...] precautions advised Stage 3a chronic kidney disease (CMS/HCC) 2022 Headache 01/02/2023 Overview (12/18/2023): Last Assessment & [...] because it calms her down. I called [facility] pharmacy to attempt a med rec [...] left I received a call from the [facility] pharmacy instructing me that she was [...] of carbs. Vertigo 11/19/2017 Moderate vascular dementia (CMS/HCC) 09/09/2017 SVT (supraventricular tachycardia) 10/12/2013 Chronic constipation [...] medications. Degeneration of lumbosacral intervertebral disc 05/14/2012 Resolved Problems Problem Noted Date Diagnosed Date Resolved Date Acute viral syndrome 11/02/2024 025 Closed head injury 11/02/2024 Contusion of knee, left 11/02/202407/13 Primary insomnia 02/12/2024 08/09/2025 Assessment & Plan (11/12/2024 9:40 AM EST): I will prescribe for patient only this time 7 days supply of zolpidem, next refills to be done by her psychiatrist Dr Perea F/u with psychiatrist Suprapubic discomfort 02/12/[address]24[address] 02/12/202407/13 Fracture of phalanx of finger 12/18/2023 12/18/2023 08/09/2025 Laceration of extensor muscl e, fascia and tendon of left little finger at forearm level, initial encounter 12/18/2023 12/18/2023 08/09/2025 Hyperventilation 08/19/2023 08/19/2023 08/09/2025 Panic attack 04/23/2023 08/09/2025 Encounters Date Type Department Care Team Description 08/18/2025 Orders Only GENERIC EXTERNAL DATA DEPARTMENT Provider, Generic External Data 08/17/2025 Refill [facility] [address] [place] [address] Nitin Echevarria MD 08/17/2025 Refill [facility] [address] [place] [address] Miryam Riley NP Hypertension, unspecified type 08/15/2025 Refill [facility] [address] [place] [address] Nitin Echevarria MD Heartburn 08/14/2025 Refill [facility] [address] [place], [place] [phone] Nitin Echevarria MD Heartburn; Vitamin D deficiency 08/09/2025 11:15 AM EDT Office Visit [facility] [address] [place] [address] Nitin Echevarria MD Generalized anxiety disorder with panic attacks (Primary Dx); Encounter for immunization; Chronic bilateral low back pain without sciatica 08/09/2025 Travel 08/01/2025 Refill [facility] [address] [place] [address] Nitin Echevarria MD Vitamin D deficiency 07/28/2025 Orders Only GENERIC EXTERNAL DATA DEPARTMENT Provider, Generic External Data 07/27/2025 Orders Only [facility] External Provider, [facility] 07/26/2025 Orders Only GENERIC EXTERNAL DATA DEPARTMENT Provider, Generic External Data 07/26/2025 Telephone [facility] [address] [place] [phone] Nitin Echevarria MD ER Follow-up 07/25/2025 Refill [facility] [address] [place] [address] Nitin Echevarria MD 07/25/2025 Refill [facility] [address] [place] [phone] Nitin Echevarria MD 07/18/2025 Refill [facility] [address] [place] [address] Miryam Riley NP 07/18/2025 Orders Only GENERIC EXTERNAL DATA DEPARTMENT Provider, Generic External Data 07/17/2025 Refill [facility] [address] [place] [address] Nitin Echevarria MD Hypertension, unspecified type 07/07/2025 8:40 AM EDT Office Visit [facility] [address] [address] Zach Javier MD Acute conjunctivitis of left eye, unspecified acute conjunctivitis type (Primary Dx) 07/07/2025 Travel 07/01/2025 9:20 AM EDT [facility] [address] [address] Zach Javier MD Pedal edema (Primary Dx) 07/01/2025 Travel 06/28/2025 Refill [facility] [address] [place] [address] Nitin Echevarria MD 06/27/2025 Refill [facility] [address] [place] [address] Nitin Echevarria MD Vitamin D deficiency 06/19/2025 Refill [facility] [address] [address] Nitin Echevarria MD Prediabetes 06/17/2025 9:30 AM EDT Office Visit [facility] [address] [place] [phone] Thea Warren FNP Generalized anxiety disorder with panic attacks (Primary Dx); Essential (primary) hypertension 06/17/2025 Travel 06/17/2025 Telephone [facility] [address] [place], [place] [phone] Name, MD Nitin Med Refill (Pt is ) 06/08/2025 Refill [facility] [address] [place], [place] [phone] Name, MD Nitin 05/25/2025 Refill [facility] [address] [place], [place] [phone] Miryam Riley, KIKO Vitamin D deficiency from Last 3 Months Immunizations Immunization Administration Dates Next Due INFLUENZA VACCINE QUADRIVALE NT RECOMBINANT PRESERVATIVE FREE RIV4 08/13/2020 Influenza High-dose Quadriva lent Preservative Free 07/26/2022 Influenza Quadrivalent Adjuvanted 07/24/2023, Influenza injectable quadriv alent IIV4 with preservative 08/13/2020,08/02/2016,08/28/2015 Influenza, High Dose Seasona l, Preservative Free 08/09/2025,08/16/2024,08/05/2017 Influenza, Split (incl. sunita fied surface antigen) 07/19/2013,08/04/2012 Influenza, Unspecified 07/26/2022 Influenza, trivalent, adjuvanted 07/06/2019,09/02/2018 Moderna Covid-19 Vaccine 12+ 02/19/2022,01/19/20 21,12/22/2020 Pfizer [...] is your housing situation today? I have clauscatherine rawls 08/09/[address] you [...] Sign Reading Time Taken Comments Blood Pressure 138/88 08/09/2025 11:12 AM EDT Pulse 76 08/09/2025 11:12 AM EDT Temperature 37.1 C (98.8 F) 08/09/2025 11:12 AM EDT Respiratory Rate 19 08/09/2025 11:12 AM EDT Oxygen Saturation 98% 08/09/2025 11:12 AM EDT Inhaled Oxygen Concentration - - Weight 86.7 kg (191 lb 3.2 oz) 08/09/2025 11:12 AM EDT Height 162.6 cm (5' 4 ) 08/09/2025 11:12 AM EDT Body Mass Index 32.82 08/09/2025 11:12 AM EDT Plan of Treatment Upcoming Encounters Date Type Department Care Team (Late st Contact Info) Description 11/07/2025 10:00 AM EST Office Visit [facility] [address] [place] [phone] Name, MD Nitin [address] [place] [address] Health Maintenance Due Date Last Done Comments Alcohol/Substance Use Screening 1957 COVID-19 Vaccine ( season) 2025 08/16/2024, 08/22/2022, 08/22/2022, Additional history exists Diabetes: Hemoglobin A1C 01/10/2026 025, 06/02/2023, 12/25/2022, Additional history exists Depression Screening 04/29/2026 04/29/2025, 04/29/20 25 Tobacco Screening 06/17/2026 06/17/2025 SDOH Screening 08/09/2026 08/09/2025 Lipid Panel 09/19/2027 09/19/2022, 01/08, 04/12/2021 DTaP/Tdap/Td Vaccines (5 - Td or Tdap) 10/20/2033 10/20/2023, 07/06/2018, 12/02/2013, Additional history exists Zoster Vaccines Completed 01/19/2020, 01/08, 09/15/2019, Additional history exists Pneumococcal Vaccine: 50+ Years Completed 12/26/2023, 07/21/2019, 06/08/2015, Additional history exists RSV Patients and Patients Aged 60 years or older Completed 12/26/2023 Influenza Vaccine Completed 08/09/2025, , 07/24/2023, Additional history exists HIB Vaccines Aged Out [...] Procedure Name Priority Date/Time Associated Diagnosis Comments BASIC METABOLIC PANEL Routine 08/18/2025 8:44 AM EDT CULTURE, URINE, ROUTINE Routine 07/28/2025 9:44 PM EDT CTA CHEST PE PROTOCAL Routine 07/28/2025 8:35 PM EDT URINALYSIS, COMPLETE, WITH REFLEX TO CULTURE Routine 07/28/2025 8:06 PM EDT HIGH SENSITIVITY TROPONIN I Routine 07/28/2025 8:[address] ABDOMEN PELVIS W CONTRAST Routine 07/28/2025 8:01 PM EDT APTT Routine 07/28/2025 5:01 PM EDT PROTHROMBIN TIME-INR Routine 07/28/2025 5:01 PM EDT HIGH SENSITIVITY TROPONIN I Routine 07/28/2025 5:01 PM EDT LIPASE Routine 07/28/2025 5:01 PM EDT COMPREHENSIVE METABOLIC PANEL Routine 07/28/2025 5:01 PM EDT CBC WITH AUTO DIFFERENTIAL Routine 07/28/2025 5:01 PM EDT HIGH SENSITIVITY TROPONIN I Routine 07/27/2025 9:41 AM EDT URINALYSIS, COMPLETE, WITH REFLEX TO CULTURE Routine 07/27/2025 9:35 AM EDT CTA CHEST PE PROTOCAL Routine 07/27/2025 8:51 AM EDT CULTURE, URINE, ROUTINE Routine 07/27/2025 12:00 AM EDT URINALYSIS, COMPLETE, WITH REFLEX TO CULTURE Routine 07/26/2025 10:41 AM EDT COMPREHENSIVE METABOLIC PANEL Routine 07/26/2025 8:51 AM EDT CBC WITH AUTO DIFFERENTIAL Routine 07/26/2025 8:51 AM EDT CULTURE, URINE, ROUTINE Routine 07/26/2025 12:00 AM EDT HIGH SENSITIVITY TROPONIN I Routine 07/18/2025 6:47 AM EDT BASIC METABOLIC PANEL Routine 07/18/2025 6:47 AM EDT CBC WITH AUTO DIFFERENTIAL Routine 07/18/2025 6:47 AM EDT POCT GLYCATED HEMOGLOBIN, TOTAL Routine 01/10/2025 11:02 AM EST Generalized anxiety disorder with panic attacks LIPID PANEL, STANDARD Routine 09/19/2022 8:08 AM EST from Last 3 Months or Most Recently Relevant to Health Maintenance Results * (ABNORMAL) Basic Metabolic Panel (08/18/2025 8:44 AM EDT) Only the most recent of2 resultswithin the time period is included. Sodium 137 135 - 145 mmol/L [facility] Potassium 4.6 3.3 - 5.1 mmol/L [facility] Chloride 101 96 - 108 mmol/L [facility] Carbon Dioxide 30(H) 22 - 29 mmol/L [facility] Anion Gap 11(L) 12 - 20 [facility] Urea Nitrogen (BUN) 19(H) 9 - 16 mg/dL [facility] Creatinine, Serum 0.94 0.5 - 1.4 mg/dL [facility] Estimated Glomerular Filt Rate 57 [facility] Comment:Chronic Kidney Disea se: Estimated GFR < 60 mL/min/1.12a6Oqairp Kidney Disease: Estimated GFR < 15 mL/min/1.73m2 Glucose 94 60 - 115 mg/dL [facility] Calcium 9.3 8.4 - 10.2 mg/dL [facility] 08/18/2025 8:44 AM EDT 08/18/2025 8:44 AM EDT us Generic External Data Provider LAB BLOOD ORDERAB LES Final Result [facility] [address] [place] [phone] * Culture, Urine, Routine (07/28/2025 9:44 PM EDT) Only the most recent of3 resultswithin the time period is included. Urine Urine specimen obtained by clean catch procedure / Unknown 07/28/2025 9:44 PM EDT 07/28/2025 9:44 PM EDT Comment:UACC Narrative [facility] - 07/30/2025 9:57 AM EDT Urine Culture Report Result Urine Culture 10,000 to 50,000 cfu/ml Urine Culture Mixed bacterial jann characteristic of Urine Culture urogenital contamination. Specimen Source: Urine clean catch us Generic External Data Provider LAB MICROBIOLOGY - GENERAL ORDERABLES Final Result [facility] [address] [place] [phone] * CTA Chest PE Protocal (07/28/2025 8:35 PM EDT) Only the most recent of2 resultswithin the time period is included. Anatomical Region Laterality Modality Body, Chest Computed Tomogra phy 07/28/2025 8:35 PM EDT Narrative 07/28/2025 8:36 PM EDT [address] [address] [address] Scan Report Signed Patient: Noreen Wing MR#: [id number] : 1945 Acct:[id number] Age/Sex: 79 / F ADM Date: 07/28/25 Loc: .ED Attending Dr: Ordering Physician: Cuco Amador Date of Service: 07/28/25 Procedure(s): CT angio chest PE protocol Accession Number(s): [id number] cc: Cuco Amador; Name,Nitin IPKE Report Number: [id number]: Total DLP = 311.00 mGy-cm Reason for Exam: known PE. worsening pain/pleurisy, new blood clots CLINICAL HISTORY: known PE. worsening pain pleurisy, new blood clots CT angiography chest with contrast. 3D Postprocessing. Comparison: None provided Findings: The heart is top normal in size. RV/LV ratio is normal. The thoracic aorta is normal caliber. No acute pulmonary artery filling defects. No consolidation, pleural effusion or pneumothorax. Calcified nodule in the right lung apex. Thyroid and thoracic esophagus within normal limits. The upper abdomen demonstrates no acute process. Degenerative changes of the thoracic spine. No acute fracture. IMPRESSION: 1. No acute pulmonary embolus. This document has been electronically signed by: Selena Basurto MD on 07/28/2025 20:35:13 Dictated By: Selena Basurto MD Signed By: <Electronically signed by Selena Basurto MD in OV> 07/28/252034 DD/ 34 TD/TT: 07/28/252034 Vice President Network Development: Procedure Note Donotuseinterpreter, Image - 07/28/[address] [address] [address] Scan Report Signed Patient: Jennifer Wing#: [id number] : 3Acct:[id number] Age/Sex: 79 / FADM Date: 07/28/25 Loc: HO.ED Attending Dr: Ordering Physician: Cuco Amador Date of Service: 07/28/25 Procedure(s): CT angio chest PE protocol Accession Number(s): [id number] cc: Cuco Amador; Name,Nitin PIKE Report Number: [id number]: Total DLP = 311.00 mGy-cm Reason for Exam: known PE. worsening pain/pleurisy, new blood clots CLINICAL HISTORY: known PE. worsening pain pleurisy, new blood clots CT angiography chest with contrast. 3D Postprocessing. Comparison: None provided Findings: The heart is top normal in size. RV/LV ratio is normal. The thoracic aorta is normal caliber. No acute pulmonary artery filling defects. No consolidation, pleural effusion or pneumothorax. Calcified nodule in the right lung apex. Thyroid and thoracic esophagus within normal limits. The upper abdomen demonstrates no acute process. Degenerative changes of the thoracic spine. No acute fracture. IMPRESSION: 1. No acute pulmonary embolus. This document has been electronically signed by: Selena Basurto MD on 07/28/2025 20:35:13 Dictated By: Selena Basurto MD Signed By: <Electronically signed by Selena Basurto MD in OV> 07/28/252034 DD/ 34 TD/TT: 07/28/252034 Vice President Network Development: [facility] External Provider IMG CT PROCEDURES Final Result * High Sensitivity Troponin I (07/28/2025 8:06 PM EDT) Only the most recent of4 resultswithin the time period is included. TROPONIN I HIGH SENSITIVITY <2.7 <3.5 - 17.0 ng/L [facility] Comment:The Mckeon high sens itivity Troponin-I results should beused in conjunction with other diagnostic information suchas ECG, clinical observations and information, and patientsymptoms to aid in the diagnosis of NM. 07/28/2025 8:06 PM EDT 07/28/2025 8:12 PM EDT us Generic External Data Provider LAB BLOOD ORDERAB LES Final Result [facility] [address] [place] [phone] * (ABNORMAL) Urinalysis, Complete, with Reflex to Culture (07/28/2025 8:06 PM EDT) Only the most recent of3 resultswithin the time period is included. Color Urine Yellow [facility] Appearance Urine Clear [facility] PH 6.0 5.0 - 9.0 [facility] Glucose Urine UA Negative Negative mg/dL [facility] Urine Blood Negative Negative [facility] Specific [place] - Urine >=1.030(H) 1.005 - 1.025 [facility] Urine Protein Negative Neg-Trace mg/dL [facility] Urine Ketones Negative Negative mg/dL [facility] Nitrite Urine Negative Negative [facility] Leukocyte Esterase Urine Small (1+)(A) Negative [facility] RBC Urine 0-2 0 - 2 /HPF [facility] Urine WBC 6-10(A) 0 - 5 /HPF [facility] Urine Squamous Epithelial Cell 0-2 0 - 2 /HPF [facility] Urine Bacteria None Seen None Seen [facility] Hyaline Casts, Urine 0-2 0 - 2 /LPF [facility] 07/28/2025 8:06 PM EDT 07/28/2025 8:12 PM EDT Narrative [facility] - 07/28/2025 9:26 PM EDT [id number], Clean Catch us Generic External Data Provider LAB URINE ORDERAB LES Final Result [facility] [address] [place] [phone] * CT Abdomen Pelvis w/ Contrast (07/28/2025 8:01 PM EDT) Anatomical Region Laterality Modality Body, Pelvis, Abdomen Computed T omography 07/28/2025 8:01 PM EDT Narrative 07/28/2025 8:03 PM EDT [address] [address] [address] Scan Report Signed Patient: Noreen Wing MR#: [id number] : 1945 Acct:[id number] Age/Sex: 79 / F ADM Date: 07/28/25 Loc: HO.ED Attending Dr: Ordering Physician: Cuco Amador Date of Service: 07/28/25 Procedure(s): CT abdomen pelvis w IV con Accession Number(s): [id number] cc: Cuco Amador; Name,Nitin PIKE Report Number: [id number]: Total DLP = 539.64 mGy-cm Reason for Exam: LUQ pain CLINICAL HISTORY: LUQ pain CT abdomen and pelvis with contrast Comparison: None provided Findings: No consolidation or pleural effusion. The gallbladder is unremarkable. No biliary ductal dilatation. The liver, spleen, pancreas, adrenal glands and the left kidney are within normal limits. 1 cm hypodense lesion in the lower pole of the right kidney likely cyst but too small to be fully characterized. No ureteral stones and no hydronephrosis or hydroureter. No bowel obstruction, pneumoperitoneum, or pneumatosis. Descending and sigmoid colon diverticulosis with no evidence of acute diverticulitis. No free fluid or loculated fluid collection. Normal appendix. Uterus and urinary bladder within normal limits. 1.7 cm left ovarian cyst. Atherosclerotic vascular disease with no aneurysm of the abdominal aorta. No acute fracture. Degenerative changes of the spine and facet arthropathy. IMPRESSION: 1. No acute findings. 2. Diverticulosis with no evidence of acute diverticulitis. 3. Additional nonacute findings as described. This document has been electronically signed by: Selena Basurto MD on 07/28/2025 20:01:24 Dictated By: Selena Basurto MD Signed By: <Electronically signed by Selena Basurto MD in OV> 07/28/252001 DD/ 00 TD/TT: 07/28/252000 Vice President Network Development: Procedure Note Donotuseinterpreter, Image - 07/28/[address] [place] [address] [address] Scan Report Signed Patient: Noreen WingMR#: [id number] : 1945cct:[id number] Age/Sex: 79 / FADM Date: 07/28/25 Loc: HO.ED Attending Dr: Ordering Physician: Cuco Amador Date of Service: 07/28/25 Procedure(s): CT abdomen pelvis w IV con Accession Number(s): [id number] cc: Cuco Amador; Name,Nitin PIKE Report Number: [id number]: Total DLP = 539.64 mGy-cm Reason for Exam: LUQ pain CLINICAL HISTORY: LUQ pain CT abdomen and pelvis with contrast Comparison: None provided Findings: No consolidation or pleural effusion. The gallbladder is unremarkable. No biliary ductal dilatation. The liver, spleen, pancreas, adrenal glands and the left kidney are within normal limits. 1 cm hypodense lesion in the lower pole of the right kidney likely cyst but too small to be fully characterized. No ureteral stones and no hydronephrosis or hydroureter. No bowel obstruction, pneumoperitoneum, or pneumatosis. Descending and sigmoid colon diverticulosis with no evidence of acute diverticulitis. No free fluid or loculated fluid collection. Normal appendix. Uterus and urinary bladder within normal limits. 1.7 cm left ovarian cyst. Atherosclerotic vascular disease with no aneurysm of the abdominal aorta. No acute fracture. Degenerative changes of the spine and facetarthropathy. IMPRESSION: 1. No acute findings. 2. Diverticulosis with no evidence of acute diverticulitis. 3. Additional nonacute findings as described. This document has been electronically signed by: Selena Basurto MD on 07/28/2025 20:01:24 Dictated By: Selena Basurto MD Signed By: <Electronically signed by Selena Basurto MD in OV> 07/28/252001 DD/ 00 TD/TT: 07/28/252000 Vice President Network Development: [facility] External Provider IMG CT PROCEDURES Final Result * (ABNORMAL) CBC auto differential (07/28/2025 5:01 PM EDT) Only the most recent of3 resultswithin the time period is included. White Blood Count 7.2 4.8 - 10.8 X10*3/uL [facility] Red Blood Count 3.71(L) 4.20 - 5.50 X10*6/uL [facility] Hemoglobin 10.6(L) 12.0 - 16.0 g/dl [facility] Hematocrit 31.4(L) 37.0 - 47.0 % [facility] Mean Corpuscular Volume 84.6 80.0 - 98.0 fL [facility] Mean Corpuscular Hemoglobin 28.6 27.0 - 33.0 pg [facility] Mean Corpuscular HGB Conc 33.8 31.0 - 35.0 g/dl [facility] Red Cell Distribution Width 14.0 11.0 - 16.0 % [facility] Platelet Count 245 160 - 400 X10*3/uL [facility] Mean Platelet Volume 8.8(L) 9.4 - 12.3 fL [facility] Neutrophils Percent Auto 57.8 45 - 73 % [facility] Imm Gran Pct Auto 0.3 0.0 - 0.4 % [facility] Lymphocytes Percent Auto 27.2 20 - 40 % [facility] Monocytes Percent Auto 12.5(H) 2 - 11 % [facility] Eosinophils Percent Auto 1.8 0 - 4 % [facility] Basophils Percent Auto 0.4 0 - 2 % [facility] NRBC Pct Auto 0.0 0.0 - 0.2 /100WBC [facility] Neutrophils Absolute Auto 4.2 2.0 - 8.3 x10*3/uL [facility] Imm Gran Abs Auto 0.02 0.00 - 0.03 X10*3/uL [facility] Lymphocytes Absolute Auto 2.0 1.2 - 4.9 X10*3/uL [facility] Monocytes Absolute Auto 0.9 0.1 - 1.2 X10*3/uL [facility] Eosinophils Absolute Auto 0.1 0.0 - 0.4 X10*3/uL [facility] Basophils Absolute Auto 0.0 0.0 - 0.2 X10*3/uL [facility] NRBC Abs Auto 0.000 0.0 - 0.012 X10*3/uL [facility] 07/28/2025 5:01 PM EDT 07/28/2025 5:05 PM EDT Generic External Data Provider LAB BLOOD ORDERAB LES Final Result Performing Organization Address City/[facility]/ZIP Co de Phone Number [facility] [address] [place] [phone] * Partial Thromboplastin Time, Activated (APTT) (07/28/2025 5:01 PM EDT) Partial Thromboplastin Time 31.4 26.7 - 34.1 SEC [facility] 07/28/2025 5:01 PM EDT 07/28/2025 5:05 PM EDT Generic External Data Provider LAB BLOOD ORDERAB LES Final Result Performing Organization Address [facility]/ZIP Co de Phone Number [facility] [address] [place] [phone] * (ABNORMAL) Prothrombin Time-INR (07/28/2025 5:01 PM EDT) Prothrombin Time 14.3(H) 10.9 - 12.4 SEC [facility] INTERNATIONAL NORM RATIO 1.2(H) 0.9 - 1.1 [facility] Comment:INTERNATIONAL NORMAL IZED RATIO (INR) REFERENCE RANGES Reference RangeFor patients not on anticoagulant therapy: 0.9 - 1.1INR ranges for oral anticoagulanttherapy:For prevention and treatment of venous thrombosis and pulmonary embolism: 2.0 - 3.0For acute myocardial infarction with aspirin therapy: 2.0 - 3.0For acute myocardial infarction without aspirin therapy: 3.0 - 4.0For patients with mechanical prosthetic heart valves: 2.5 - 3.5 07/28/2025 5:01 PM EDT 07/28/2025 5:05 PM EDT Generic External Data Provider LAB BLOOD ORDERAB LES Final Result Performing Organization Address City/[facility]/ZIP Co de Phone Number [facility] [address] [place] [phone] * Lipase (07/28/2025 5:01 PM EDT) Pathologist [facility] Lipase 31 8 - 78 U/L [facility] 07/28/2025 5:01 PM EDT 07/28/2025 5:05 PM EDT Generic External Data Provider LAB BLOOD ORDERAB LES Final Result Performing Organization Address [facility] [[email or web address]] Co de Phone Number [facility] [address] [place] [phone] * (ABNORMAL) Comprehensive Metabolic Panel (07/28/2025 5:01 PM EDT) Only the most recent of2 resultswithin the time period is included. Sodium 140 135 - 145 mmol/L [facility] Potassium 4.1 3.3 - 5.1 mmol/L [facility] Chloride 104 96 - 108 mmol/L [facility] Carbon Dioxide 30(H) 22 - 29 mmol/L [facility] Anion Gap 10(L) 12 - 20 [facility] Urea Nitrogen (BUN) 24(H) 9 - 16 mg/dL [facility] Creatinine, Serum 1.03 0.5 - 1.4 mg/dL [facility] Creatinine Clr Calc Pharmacy 50.1 [facility] Comment:Provided height and weight: 172.72 cm,89.5 kg.eGFR (calculated from the MDRD study equation) and eCrCl(calculated from the Cockcroft-Gault equation) are based ondifferent parameters and may not yield comparable results.If eCrCl result is absurd, please check patient'sheight/weight. Estimated Glomerular Filt Rate 51 [facility] Comment:Chronic Kidney Disea se: Estimated GFR < 60 mL/min/1.85y1Rfltwp Kidney Disease: Estimated GFR < 15 mL/min/1.73m2 Glucose 146(H) 60 - 115 mg/dL [facility] Calcium 8.4 8.4 - 10.2 mg/dL [facility] Bilirubin, Total 0.2 0.0 - 1.0 mg/dL [facility] Aspartate Amino Transferase 34(H) 5 - 31 U/L [facility] Alanine Aminotransferase 23 0 - 31 U/L [facility] Total Protein 7.3 6.5 - 8.0 g/dL [facility] Albumin Level 4.0 3.5 - 5.0 g/dL [facility] Alkaline Phosphatase 72 39 - 117 U/L [facility] 07/28/2025 5:01 PM EDT 07/28/2025 5:05 PM EDT us Generic External Data Provider LAB BLOOD ORDERAB LES Final Result [facility] [address] [place] [phone] * POCT HGB A1C (01/10/2025 11:02 AM EST) Hemoglobin A1C 5.1 4.0 - 6.0 % QC Media Lot # [id number] Lot# Expiration Date Blood 01/10/2025 11:0 2 AM EST us Nitin Name POINT OF [...] LDL-C. Jack SS et al. JITENDRA. 2013;310(19): 2760-1467 (http://education.[employer].StyleJam/faq/BQR063) Non-HDL Cholesterol 88 <130 mg/dL (calc) CONVERTED [...] Most Recently Relevant to Health Maintenance Insurance [id number] RESIDENTIAL OPTIONS (HMO D-SNP) Care Teams Studio Owner Relationship Specialty Start Date End Date Name, MD Nitin [address] [place] [address] PCP - General Family Medicine 08/26/17 [facility] 09/01/24
--- OUTSIDE RECORDS SUMMARY | 2025-08-20 08:56 | XMS_ITS | Clinical Summary ---
Author Organization [facility] Address [address] [address] Care Team Providers Care Keyboard Instrument Repairer Name Role Phone Name, Nitin PIKE Primary Care Provider [phone] Allergies Active Allergy Reactions Criticality Noted Date [...] patient's age to complete this topic [place] [address] MCR ([id number]) SARA [place]IPS [id number] [facility] MCR ([id number]) Care Teams Keyboard Instrument Repairer Relationship Specialty Start Date End Date Name, MD Nitin [address] [place] [address] PCP - General Internal Medicine 10/15/22
--- OUTSIDE RECORDS SUMMARY | 2025-08-20 08:56 | XMS_ITS | Encounter Summary ---
Author Organization [employer] Address [address] [facility] [address] [place] [address] Care Team Providers Care Data Services Developer Name Role Phone Name, Nitin PIKE Primary Care Provider [phone] Reason for Visit * Reason Onset Date Comments ER Follow-up 05/04/2024 Encounter Details Date Type Department Care Team ([facility] Contact Info) Description 05/04/2024 Telephone [facility] [address] [place], [place] [phone] Name, MD Nitin [address] [place] [address] ER Follow-up Social History Tobacco Use Types [...] 11:01 AM EDT T/C [place] pt. [place] - [id number] for below message, No answer. LVM to call back [phone] . * Telephone Encounter - Adithya Solorzano - 05/04/2024 9:35 AM EDT Noreen with [facility] calling to report ED visit on : Date: 04/28 Hospital: [facility] Seen for: UTI, Nausea, Rash. Noreen advised will be forwarding message to team nurses. Please contact pt at [phone]. documented in this encounter Plan of Treatment Upcoming Encounters Date Type Department Care Team (Late st Contact Info) Description 11/07/2025 10:00 AM EST Office Visit [facility] [address] [place] [address] Name, MD Nitin [address] [place] [address] documented as of this encounter Visit Diagnoses Not on filedocumented in this encounter Additional Health Concerns Assessment Noted Time PHQ-9 Depression Total Score: 6 02/13/20 9:14 AM EDT documented as of this encounter Care Teams Data Services Developer Relationship Specialty Start Date End Date Name, MD Nitin [address] [place] [address] PCP - General Family Medicine 08/26/17 [facility] 09/01/24 documented as of this encounter
--- OUTSIDE RECORDS SUMMARY | 2025-08-20 08:56 | XMS_ITS | Encounter Summary ---
Author Organization [employer] Address 75 [facility] [address] [place] [address] Care Team Providers Care Lead Web Application Developer Name Role Phone Name, Nitin PIKE Primary Care Provider [phone] Encounter Details Date Type Department Care Team ([facility] st Contact Info) Description 05/26/2023 Orders Only [facility] [address] [place] [address] Noreen Fox MD 230 [place] [address] Social History Tobacco Use Types Packs/Day Years [...] Upcoming Encounters Date Type Department Care Team ([facility] st Contact Info) Description 11/07/2025 10:00 AM EST Office Visit [facility] [address] [place] [phone] Name, MD Nitin 230 [place] [address] documented as of this encounter Visit Diagnoses Not on filedocumented in this encounter Care Teams Lead Web Application Developer Relationship Specialty Start Date End Date Name, [place] [address] PCP - General Family Medicine 08/26/17 [facility] 09/01/24 documented as of this encounter
--- OUTSIDE RECORDS SUMMARY | 2025-08-20 08:56 | XMS_ITS | Encounter Summary ---
Author Organization [employer] Address [address] [facility] [address] [place] [address] Care Team Providers Care Hydraulic Engineer Name Role Phone Name, Nitin PIKE Primary Care Provider [phone] Reason for Visit * Reason Comments Med Refill Encounter Details Date Type Department Care Team (Late st Contact Info) Description 07/25/2025 Refill [facility] [address] [place], [place] [phone] Name, MD Nitin [address] [place] [address] Social History Tobacco Use Types Packs/Day Years [...] Description 11/07/2025 10:00 AM EST Office Visit [facility] MEDICINE [address] [place] [phone] NameNitin MD [address] [place] [address] documented as of this encounter Visit Diagnoses Not on filedocumented in this encounter Additional Health Concerns Assessment Noted Time PHQ-9 Depression Total Score: 3 04/29/20 25 9:41 AM EDT documented as of this encounter Care Teams Hydraulic Engineer Relationship Specialty Start Date End Date NameNitin MD [address] [place] [address] PCP - General Family Medicine 08/26/17 [facility] 09/01/24 documented as of this encounter
--- OUTSIDE RECORDS SUMMARY | 2025-08-20 08:56 | XMS_ITS | Encounter Summary ---
Author Organization [employer] Address 75 [facility] 7t [place] [address] Care Team Providers Care Pesticide Applicator Name Role Phone Name, Nitin PIKE Primary Care Provider [phone] Encounter Details Date Type Department Care Team (Late st Contact Info) Description 08/18/2025 Orders Only GENERIC EXTERNAL DATA [...] Description 11/07/2025 10:00 AM EST Office Visit [facility] MEDICINE [address] [place] [phone] Name, MD Nitin 230 [place] [address] documented as of this encounter Procedures Procedure Name Priority Date/Time Associated Diagnosis Comments BASIC METABOLIC PANEL Routine 08/18/2025 8:44 AM EDT documented in this encounter Results * (ABNORMAL) Basic Metabolic Panel (08/18/2025 8:44 AM EDT) Sodium 137 135 - 145 mmol/L [facility] Potassium 4.6 3.3 - 5.1 mmol/L [facility] Chloride 101 96 - 108 mmol/L [facility] Carbon Dioxide 30(H) 22 - 29 mmol/L [facility] Anion Gap 11(L) 12 - 20 [facility] Urea Nitrogen (BUN) 19(H) 9 - 16 mg/dL [facility] Creatinine, Serum 0.94 0.5 - 1.4 mg/dL [facility] Estimated Glomerular Filt Rate 57 [facility] Comment:Chronic Kidney Disea se: Estimated GFR < 60 mL/min/1.77x4Yaomjs Kidney Disease: Estimated GFR < 15 mL/min/1.73m2 Glucose 94 60 - 115 mg/dL [facility] Calcium 9.3 8.4 - 10.2 mg/dL [facility] 08/18/2025 8:44 AM EDT 08/18/2025 8:44 AM EDT us Generic External Data Provider LAB BLOOD ORDERAB LES Final Result [facility] [address] [place] [phone] documented in this encounter Visit Diagnoses Not on filedocumented in this encounter Additional Health Concerns Assessment Noted Time PHQ-9 Depression Total Score: 3 04/29/20 25 9:41 AM EDT documented as of this encounter Care Teams Pesticide Applicator Relationship Specialty Start Date End Date Name, MD Nitin [address] [place] [address] PCP - General Family Medicine 08/26/17 [facility] 09/01/24 documented as of this encounter
--- OUTSIDE RECORDS SUMMARY | 2025-08-20 08:56 | XMS_ITS | Encounter Summary ---
Author Organization [employer] Address 75 [facility] 7[address] [place] [address] Care Team Providers Care Ginger Farmer Name Role Phone Name, Nitin PIKE Primary Care Provider [phone] Reason for Visit * Reason Comments Med Refill Encounter Details Date Type Department Care Team ([facility] st Contact Info) Description 04/01/2024 Refill [facility] MED[facility]INE 230 [place], [place] [phone] Name, MD Nitin [address] [place] [address] Rash Social History Tobacco Use Types Packs/Day [...] Description 11/07/2025 10:00 AM EST Office Visit [facility] [address] [place] [address] NameNitin MD [address] [place] [address] documented as of this encounter Visit Diagnoses Diagnosis Rash Rash and other nonspecific skin eruption documented in this encounter Additional Health Concerns Assessment Noted Time PHQ-9 Depression Total Score: 6 02/13/20 24 9:14 AM EDT documented as of this encounter Care Teams Ginger Farmer Relationship Specialty Start Date End Date NameNitin MD [address] [place] [address] PCP - General Family Medicine 08/26/17 [facility] 09/01/24 documented as of this encounter
--- OUTSIDE RECORDS SUMMARY | 2025-08-20 08:56 | XMS_ITS | Encounter Summary ---
Author Organization [employer] Address 75 [facility] 7[address] [place] [address] Care Team Providers Care Medical Device Name Role Phone Name, Nitin PIKE Primary Care Provider [phone] Encounter Details Date Type Department Care Team ([facility] st Contact Info) Description 08/15/2025 Refill [facility] MED[facility]INE 230 [place], [place] [phone] Name, MD Nitin [address] [place] [address] Heartburn Social History Tobacco Use Types Packs/Day [...] Description 11/07/2025 10:00 AM EST Office Visit [facility] MEDICINE [address] [place] [address] Name, MD Nitin [address] [place] [address] documented as of this encounter Visit Diagnoses Diagnosis Heartburn documented in this encounter Additional Health Concerns Assessment Noted Time PHQ-9 Depression Total Score: 3 04/29/20 25 9:41 AM EDT documented as of this encounter Care Teams Medical Device Relationship Specialty Start Date End Date Name, MD Nitin [address] [place] [address] PCP - General Family Medicine 08/26/17 [facility] 09/01/24 documented as of this encounter
--- OUTSIDE RECORDS SUMMARY | 2025-08-20 08:56 | XMS_ITS | Encounter Summary ---
Author Organization [employer] Address 75 [facility] 7[address] [place] [address] Care Team Providers Care Trim Mechanic Name Role Phone Name, Nitin PIKE Primary Care Provider [phone] Reason for Visit * Reason Onset Date Comments ER Follow-up 05/31/2024 Encounter Details Date Type Department Care Team ([facility] Contact Info) Description 05/31/2024 Telephone [facility] MEDICINE 230 [place], [place] [phone] Name, MD Nitin [address] [place] [address] ER Follow-up Social History Tobacco Use Types [...] PM EDT T/C to Pat ([facility]) [phone] for below message, no answer. LVM to call back on [phone]. * Telephone Encounter - Melany Santos RN - 05/31/2024 1:32 PM EDT DAVID T/C to pt. Through [place] id - [id number] for below message, pt. Had recent fall and ED visit at [facility]. RN will request GRACE piedra from [facility]. Pt. Is doing good, states I am tired andsleeping. Pt. Dose not has any question or concern right now. Pt. Already has HDF apt. Schedule on 06/10/2024. Pt. Advised to give call to [facility] if any questions or concerns. Pt. Verbally agreed and understood. Please review and advise if needed. * Telephone Encounter - Adithya Solorzano - 05/31/2024 12:50 PM EDT Patient calling to report ED visit on : Date: 05/26 Hospital: [facility] Seen for: Fall, Back Pain Pat stated pt is requesting a sooner apt with pcp due to recent ER visit. PT is also requesting order for PT services for to go along with [facility]. documented in this encounter Plan of Treatment Upcoming Encounters Date Type Department Care Team (Late st Contact Info) Description 11/07/2025 10:00 AM EST Office Visit [facility] MEDICINE [address] [place] [address] Name, MD Nitin [address] [place] [address] documented as of this encounter Visit Diagnoses Not on filedocumented in this encounter Additional Health Concerns Assessment Noted Time PHQ-9 Depression Total Score: 6 02/13/20 24 9:14 AM EDT documented as of this encounter Care Teams Trim Mechanic Relationship Specialty Start Date End Date Name, MD Nitin [address] [place] [address] PCP - General Family Medicine 08/26/17 [facility] 09/01/24 documented as of this encounter
--- OUTSIDE RECORDS SUMMARY | 2025-08-20 08:56 | XMS_ITS | Encounter Summary ---
Author Organization [employer] Address 75 [facility] [address] [place] [address] Care Team Providers Care Produce Buyer Name Role Phone Name, Nitin PIKE Primary Care Provider [phone] Reason for Visit * Reason Comments Med Refill Encounter Details Date Type Department Care Team (Late st Contact Info) Description 08/17/2025 Refill [facility] MEDICINE 230 [place], [place] [phone] Miryam Riley NP 230 [place], [place] [phone] Hypertension, unspecified type Social History Tobacco Use [...] Description 11/07/2025 10:00 AM EST Office Visit [facility] MEDICINE [address] [place] [address] NameNitin MD 230 [place] [address] documented as of this encounter Visit Diagnoses Diagnosis Hypertension, unspecified type documented in this encounter Additional Health Concerns Assessment Noted Time PHQ-9 Depression Total Score: 3 04/29/20 25 9:41 AM EDT documented as of this encounter Care Teams Produce Buyer Relationship Specialty Start Date End Date Name, MD Nitin [address] [place] [address] PCP - General Family Medicine 08/26/17 [facility] 09/01/24 documented as of this encounter
--- OUTSIDE RECORDS SUMMARY | 2025-08-20 08:56 | XMS_ITS | Encounter Summary ---
Author Organization [employer] Address 75 [facility] 7[address] [place] [address] Care Team Providers Care Registered Appraiser Name Role Phone Name, Nitin PIKE Primary Care Provider [phone] Reason for Visit * Reason Onset Date Comments Med Refill 11/08/2024 Encounter Details Date Type Department Care Team ([facility] st Contact Info) Description 11/08/2024 Telephone [facility] MED[facility]INE [address] [place], [place] [phone] Name, MD Nitin 230 [place] [address] Med Refill Social History Tobacco Use Types [...] 5 MG tablet To be sent to: [facility] - [place], [place] - [address] [facility] documented in this encounter Plan of Treatment Upcoming Encounters Date Type Department Care Team ([facility] st Contact Info) Description 11/07/2025 10:00 AM EST Office Visit [facility] [address] [place] [address] Name, MD Nitin [address] [place] [address] documented as of this encounter Visit Diagnoses Not on filedocumented in this encounter Additional Health Concerns Assessment Noted Time PHQ-9 Depression Total Score: 6 02/13/20 24 9:14 AM EDT documented as of this encounter Care Teams Registered Appraiser Relationship Specialty Start Date End Date Name, MD Nitin [address] [place] [address] PCP - General Family Medicine 08/26/17 [facility] 09/01/24 documented as of this encounter
--- OUTSIDE RECORDS SUMMARY | 2025-08-20 08:56 | XMS_ITS | Encounter Summary ---
Author Organization [employer] Address 75 [facility] 7t [place] [address] Care Team Providers Care It Risk And Assurance Manager Name Role Phone Name, Nitin PIKE Primary Care Provider [phone] Reason for Visit * Reason Comments Med Refill Encounter Details Date Type Department Care Team ([facility] st Contact Info) Description 08/17/2025 Refill [facility] MEDICINE 230 [place], [place] [phone] Name, MD Nitin [address] [place] [address] Social History Tobacco Use Types Packs/Day Years [...] Description 11/07/2025 10:00 AM EST Office Visit [facility] MEDICINE [address] [place] [address] NameNitin MD 230 [place] [address] documented as of this encounter Visit Diagnoses Not on filedocumented in this encounter Additional Health Concerns Assessment Noted Time PHQ-9 Depression Total Score: 3 04/29/20 25 9:41 AM EDT documented as of this encounter Care Teams It Risk And Assurance Manager Relationship Specialty Start Date End Date NameNitin MD [address] [place] [address] PCP - General Family Medicine 08/26/17 [facility] 09/01/24 documented as of this encounter
--- OUTSIDE RECORDS SUMMARY | 2025-08-20 08:56 | XMS_ITS | Encounter Summary ---
Author Organization [employer] Address 75 [facility] 7t [place] [address] Care Team Providers Care Student Financial Services Counselor Name Role Phone Name, Nitin PIKE Primary Care Provider [phone] Reason for Visit * Reason Onset Date Comments Results 08/29/2023 Encounter Details Date Type Department Care Team ([facility] st Contact Info) Description 08/29/2023 Telephone [facility] MEDICINE 230 [place], [place] [phone] Name, MD Nitin 230 [place] [address] Results Social History Tobacco Use Types Packs/Day [...] to urine results. Please contact pt at [phone] (Bolivian) documented in this encounter Plan of Treatment Upcoming Encounters Date Type Department Care Team (Late st Contact Info) Description 11/07/2025 10:00 AM EST Office Visit [facility] MEDICINE [address] [place] [address] Name, MD Nitin [address] [place] [address] documented as of this encounter Visit Diagnoses Not on filedocumented in this encounter Additional Health Concerns Assessment Noted Time PHQ-9 Depression Total Score: 12 023 9:37 AM EDT documented as of this encounter Care Teams Student Financial Services Counselor Relationship Specialty Start Date End Date Name, MD Nitin [address] [place] [address] PCP - General Family Medicine 08/26/17 [facility] 09/01/24 documented as of this encounter
--- OUTSIDE RECORDS SUMMARY | 2025-08-20 08:56 | XMS_ITS | Encounter Summary ---
Author Organization [employer] Address 75 [facility] 7[address] [place] [address] Care Team Providers Care Revenue Cycle Specialist Name Role Phone Name, Nitin PIKE Primary Care Provider [phone] Reason for Visit * Reason Comments Med Refill Encounter Details Date Type Department Care Team (Late st Contact Info) Description 04/20/2025 Refill [facility] 230 [place] [address] Zechariah Cheung MD 230 [place] [address] Allergic rhinitis, unspecified seasonality, unspecified trigger Social [...] Description 11/07/2025 10:00 AM EST Office Visit [facility] [address] [place] [address] NameNitin MD 230 [place] [address] documented as of this encounter Visit Diagnoses Diagnosis Allergic rhinitis, unspecified seasonality, unspecified trigger documented in this encounter Additional Health Concerns Assessment Noted Time PHQ-9 Depression Total Score: 6 02/13/20 9:14 AM EDT documented as of this encounter Care Teams Revenue Cycle Specialist Relationship Specialty Start Date End Date Nitin Echevarria MD [address] [place] [address] PCP - General Family Medicine 08/26/17 [facility] 09/01/24 documented as of this encounter
--- OUTSIDE RECORDS SUMMARY | 2025-08-20 08:56 | XMS_ITS | Encounter Summary ---
Author Organization [employer] Address 75 [facility] 7[address] [place] [address] Care Team Providers Care Loan Documents Closer Name Role Phone Name, Nitin PIKE Primary Care Provider [phone] Reason for Visit * Reason Comments Med Refill Encounter Details Date Type Department Care Team ([facility] st Contact Info) Description 06/28/2024 Refill [facility] 230 [place], [place] [phone] Mel Anguiano FNP 230 [place] [address] Social History Tobacco Use Types Packs/Day Years [...] Description 11/07/2025 10:00 AM EST Office Visit [facility] 230 [place] [address] Name, MD Nitin 230 [place] [address] documented as of this encounter Visit Diagnoses Not on filedocumented in this encounter Additional Health Concerns Assessment Noted Time PHQ-9 Depression Total Score: 6 02/13/20 24 9:14 AM EDT documented as of this encounter Care Teams Loan Documents Closer Relationship Specialty Start Date End Date Name, MD Nitin [address] [place] [address] PCP - General Family Medicine 08/26/17 [facility] 09/01/24 documented as of this encounter
--- OUTSIDE RECORDS SUMMARY | 2025-08-20 08:57 | XMS_ITS | Encounter Summary ---
Author Organization [employer] Address 75 [facility] [address] [place] [address] Care Team Providers Care Philatelic Consultant Name Role Phone Name, Nitin PIKE Primary Care Provider Encounter Details Date Type Department Care Team (Late st Contact Info) Description 11/06/2022 Orders Only [facility] [address] [place], [place] [phone] Lisha Kelly LPN Social History Tobacco Use [...] 11/07/2025 10:00 AM EST Office Visit [facility] MEDICINE 230 [place] [address] NameNitin MD 230 [place] [address] documented as of this encounter Visit Diagnoses Not on filedocumented in this encounter Care Teams Philatelic Consultant Relationship Specialty Start Date End Date Nitin Echevarria MD 230 [place] [address] PCP - General Family Medicine 08/26/17 [facility] 09/01/24 documented as of this encounter
--- OUTSIDE RECORDS SUMMARY | 2025-08-20 08:57 | XMS_ITS | Encounter Summary ---
Author Organization [employer] Address 75 [facility] 7t [place] [address] Care Team Providers Care Activity Therapy Teacher Name Role Phone Name, Nitin PIKE Primary Care Provider [phone] Reason for Visit * Reason Onset Date Comments Verbal Orders 12/15/2023 Encounter Details Date Type Department Care Team ([facility] st Contact Info) Description 12/15/2023 Telephone [facility] MEDICINE 230 [place], [place] [phone] Name, MD Nitin 230 [place] [address] Verbal Orders Social History Tobacco Use Types [...] 12:03 PM EST Tc from [facility] with [employer] requesting verbal order to see pt 2 times a week for 4 weeks for Occupational Therapy, please contact [facility] at [phone] documented in this encounter Plan of Treatment Upcoming Encounters Date Type Department Care Team (Late st Contact Info) Description 11/07/2025 10:00 AM EST Office Visit [facility] MEDICINE 230 [place] [address] Name, MD Nitin 230 [place] [address] documented as of this encounter Visit Diagnoses Not on filedocumented in this encounter Additional Health Concerns Assessment Noted Time PHQ-9 Depression Total Score: 12 023 9:37 AM EDT documented as of this encounter Care Teams Activity Therapy Teacher Relationship Specialty Start Date End Date Name, MD Nitin 230 [place] [address] PCP - General Family Medicine 08/26/17 [facility] 09/01/24 documented as of this encounter
--- OUTSIDE RECORDS SUMMARY | 2025-08-20 08:57 | XMS_ITS | Encounter Summary ---
Author Organization [employer] Address 75 [facility] 7[address] [place] [address] Care Team Providers Care Galley Stripper Name Role Phone Name, Nitin PIKE Primary Care Provider [phone] Reason for Visit * Reason Onset Date Comments triage 12/18/2022 Encounter Details Date Type Department Care Team ([facility] st Contact Info) Description 12/18/2022 Telephone [facility] MEDICINE 230 [place], [place] [phone] Name, MD Nitin 230 [place] [address] triage Social History Tobacco Use Types Packs/Day [...] 12/18/2022 2:35 PM EST Called pt. Via [employer] oyster sorter [id number] [place]. Pt. States that she has a left [...] phone. Please reach out to pt. With German speaking another time to see what her [...] Description 11/07/2025 10:00 AM EST Office Visit [facility] 230 [place] [address] Name, MD Nitin 230 [place] [address] documented as of this encounter Visit Diagnoses Not on filedocumented in this encounter Care Teams Galley Stripper Relationship Specialty Start Date End Date Name, MD Nitin 230 [place] [address] PCP - General Family Medicine 08/26/17 [facility] 09/01/24 documented as of this encounter
--- OUTSIDE RECORDS SUMMARY | 2025-08-20 08:57 | XMS_ITS | Encounter Summary ---
Author Organization [employer] Address 75 [facility] 7[address] [place] [address] Care Team Providers Care Casino Manager Name Role Phone Name, Nitin PIKE Primary Care Provider Reason for Visit * Reason Onset Date Comments Durable Medical Equipment 12/09/2023 Encounter Details Date Type Department Care Team ([facility] st Contact Info) Description 12/09/2023 Telephone [facility] MEDICINE 230 [place], [place] [phone] Name, MD Nitin 230 [place], [place] [phone] Durable Medical Equipment Social History Tobacco Use [...] EST DME rx faxed to [facility] as requested. RN will consult with S nurse and provide referral. * Telephone Encounter - Fozia Jacob RN - 12/09/2023 4:58 PM EST Call returned to [facility] at [facility] [phone] ext. [phone]. [facility] states that [facility] attempted to provide PT at home but pt refused. [facility] pt is requesting outpatient PT. [facility] pt is seeing a counselor more regularly and has agreed to VNA referral. Reports pt has had 3 falls in the past 2 months. [facility] states [facility] no longer has visiting nurses. [facility] recommends [facility] or [facility] for VNA referral. [facility] also requesting DME rx for rollator walker and a straight cane. Requests that DME rx be faxed to [phone]. Advised requests will be sent to pcp. * Telephone Encounter - Adithya Solorzano - 12/09/2023 4:25 PM EST Tc from [facility] requesting DME: Rollator walker . documented in this encounter Plan of Treatment Upcoming Encounters Date Type Department Care Team (Late st Contact Info) Description 11/07/2025 10:00 AM EST Office Visit [facility] MEDICINE 230 [place] [address] Name, MD Nitin 230 [place] [address] documented as of this encounter Visit Diagnoses Not on filedocumented in this encounter Additional Health Concerns Assessment Noted Time PHQ-9 Depression Total Score: 12 023 9:37 AM EDT documented as of this encounter Care Teams Casino Manager Relationship Specialty Start Date End Date Name, MD Nitin [facility] [place] [address] PCP - General Family Medicine 08/26/17 [facility] 09/01/24 documented as of this encounter
--- OUTSIDE RECORDS SUMMARY | 2025-08-20 08:57 | XMS_ITS | Encounter Summary ---
Author Organization [employer] Address 75 [facility] 7t [place] [address] Care Team Providers Care Blast Furnace Operator Name Role Phone Name, Nitin PIKE Primary Care Provider [phone] Encounter Details Date Type Department Care Team ([facility] Contact Info) Description 12/17/2022 Orders Only [facility] MED & PEDS [address] [place], [place] [phone] Lisha Kelly LPN Social History Tobacco Use [...] Visit [facility] MEDICINE 230 [place] [address] Nitin Echevarria MD 230 [place] [address] documented as of this encounter Visit Diagnoses Not on filedocumented in this encounter Care Teams Blast Furnace Operator Relationship Specialty Start Date End Date NameNitin MD 230 [place] [address] PCP - General Family Medicine 08/26/17 [facility] 09/01/24 documented as of this encounter
--- OUTSIDE RECORDS SUMMARY | 2025-08-20 08:57 | XMS_ITS | Encounter Summary ---
Author Organization [employer] Address 75 [facility] 7[address] [place] [address] Care Team Providers Care Varnish Remover Name Role Phone Name, Nitin PIKE Primary Care Provider [phone] Reason for Visit * Reason Onset Date Comments Order(s) 12/09/2023 Encounter Details Date Type Department Care Team ([facility] Contact Info) Description 12/09/2023 Telephone [facility] MEDICINE 230 [place], [place] [phone] Name, MD Nitin 230 [place], [place] [phone] Order(s) Social History Tobacco Use Types Packs/Day [...] orders. If any questions please contact Noreen [phone]. documented in this encounter Plan of Treatment Upcoming Encounters Date Type Department Care Team (Late st Contact Info) Description 11/07/2025 10:00 AM EST Office Visit [facility] MEDICINE [address] [place] [address] Name, MD Nitin 230 [place] [address] documented as of this encounter Visit Diagnoses Not on filedocumented in this encounter Additional Health Concerns Assessment Noted Time PHQ-9 Depression Total Score: 12 023 9:37 AM EDT documented as of this encounter Care Teams Varnish Remover Relationship Specialty Start Date End Date Name, MD Nitin [address] [place] [address] PCP - General Family Medicine 08/26/17 [facility] 09/01/24 documented as of this encounter
--- OUTSIDE RECORDS SUMMARY | 2025-08-20 08:57 | XMS_ITS | Encounter Summary ---
Author Organization [employer] Address 75 [facility] 7[address] [place] [address] Care Team Providers Care Warehouse Administrative Assistant Name Role Phone Name, Nitin PIKE Primary Care Provider [phone] Reason for Visit * Reason Comments Med Refill Encounter Details Date Type Department Care Team (Late Contact Info) Description 03/02/2023 Refill [facility] MEDICINE [address] [place] [address] Karely Patiño MD [address] [place] [address] [phone] Social History Tobacco Use Types Packs/Day Years [...] 11/07/2025 10:00 AM EST Office Visit [facility] MEDICINE [address] [place] [address] Name, MD Nitin [address] [place] [address] documented as of this encounter Visit Diagnoses Not on filedocumented in this encounter Care Teams Warehouse Administrative Assistant Relationship Specialty Start Date End Date Name, MD Nitin 230 [place] [address] PCP - General Family Medicine 08/26/17 [facility] 09/01/24 documented as of this encounter
--- OUTSIDE RECORDS SUMMARY | 2025-08-20 08:57 | XMS_ITS | Encounter Summary ---
Author Organization [employer] Address 75 [facility] 7t [place] [address] Care Team Providers Care Call Center Recruiter Name Role Phone Name, Nitin PIKE Primary Care Provider [phone] Reason for Visit * Reason Onset Date Comments Verbal Orders 01/02/2024 Encounter Details Date Type Department Care Team ([facility] st Contact Info) Description 01/02/2024 Telephone [facility] MEDICINE 230 [place], [place] [phone] Name, MD Nitin 230 [place] [address] Verbal Orders Social History Tobacco Use Types [...] No answer. LVM to call back on [phone]. * Telephone Encounter - Melany Santos RN - 01/06/2024 10:25 AM EST Please review and advise for below request. * Telephone Encounter - Deana Bazzi - 01/02/2024 3:44 PM EST Tc from [facility] with [facility] requesting verbal orders for discharge pt from Occupational Therapy, due to pt refuses services, please contact [facility] at [phone]. documented in this encounter Plan of Treatment Upcoming Encounters Date Type Department Care Team (Late st Contact Info) Description 11/07/2025 10:00 AM EST Office Visit [facility] MEDICINE [address] [place] [address] Name, MD Nitin [address] [place] [address] documented as of this encounter Visit Diagnoses Not on filedocumented in this encounter Additional Health Concerns Assessment Noted Time PHQ-9 Depression Total Score: 12 023 9:37 AM EDT documented as of this encounter Care Teams Call Center Recruiter Relationship Specialty Start Date End Date Name, MD Nitin [address] [place] [address] PCP - General Family Medicine 08/26/17 [facility] 09/01/24 documented as of this encounter
--- OUTSIDE RECORDS SUMMARY | 2025-08-20 08:57 | XMS_ITS | Encounter Summary ---
Author Organization [employer] Address 75 [facility] 7[address] [place] [address] Care Team Providers Care Tool Crib Manager Name Role Phone Name, Nitin PIKE Primary Care Provider [phone] Encounter Details Date Type Department Care Team ([facility] Contact Info) Description 01/06/2023 Orders Only [facility] MED & PEDS 505 [place], [place] [phone] Lisha Kelly LPN Social History Tobacco Use [...] Description 11/07/2025 10:00 AM EST Office Visit [facility] MEDICINE 230 [place] [address] NameNitin MD [address] [place] [address] documented as of this encounter Visit Diagnoses Not on filedocumented in this encounter Care Teams Tool Crib Manager Relationship Specialty Start Date End Date NameNitin MD [address] [place] [address] PCP - General Family Medicine 08/26/17 [facility] 09/01/24 documented as of this encounter
--- OUTSIDE RECORDS SUMMARY | 2025-08-20 08:57 | XMS_ITS | Encounter Summary ---
Author Organization [employer] Address 75 [facility] 7[address] [place] [address] Care Team Providers Care Cat Skinner Name Role Phone Name, Nitin PIKE Primary Care Provider [phone] Reason for Visit * Reason Comments Med Refill Encounter Details Date Type Department Care Team (Late st Contact Info) Description 08/16/2024 Refill [facility]S [address] [place], [place] [phone] Name, MD Nitin 230 [place] [address] Heartburn Social History Tobacco Use Types Packs/Day [...] Description 11/07/2025 10:00 AM EST Office Visit [facility] MEDICINE [address] [place] [address] NameNitin MD [address] [place] [address] documented as of this encounter Visit Diagnoses Diagnosis Heartburn documented in this encounter Additional Health Concerns Assessment Noted Time PHQ-9 Depression Total Score: 6 02/13/20 24 9:14 AM EDT documented as of this encounter Care Teams Cat Skinner Relationship Specialty Start Date End Date NameNitin MD [address] [place] [address] PCP - General Family Medicine 08/26/17 [facility] 09/01/24 documented as of this encounter
--- OUTSIDE RECORDS SUMMARY | 2025-08-20 08:57 | XMS_ITS | Encounter Summary ---
Author Organization [employer] Address 75 [facility] 7[address] [place] [address] Care Team Providers Care Maintenance And Operations Supervisor Name Role Phone Name, Nitin PIKE Primary Care Provider [phone] Encounter Details Date Type Department Care Team ([facility] Contact Info) Description 08/08/2023 Telephone [facility] MEDICINE [address] [place] [address] [phone] Name, MD Nitin [address] [place] [address] [phone] Social History Tobacco Use Types Packs/Day Years [...] Department Care Team (Late Contact Info) Description 11/07/2025 10:00 AM EST Office Visit [facility] MEDICINE [address] [place] [address] [phone] Name, MD Nitin [address] [place] [address] [phone] documented as of this encounter Visit Diagnoses Not on filedocumented in this encounter Additional Health Concerns Assessment Noted Time PHQ-9 Depression Total Score: 12 023 9:37 AM EDT documented as of this encounter Care Teams Maintenance And Operations Supervisor Relationship Specialty Start Date End Date Name, MD Nitin 230 [place] [address] PCP - General Family Medicine 08/26/17 [facility] 09/01/24 documented as of this encounter
--- OUTSIDE RECORDS SUMMARY | 2025-08-20 08:57 | XMS_ITS | Encounter Summary ---
Author Organization [employer] Address 75 [facility] 7[address] [place] [address] Care Team Providers Care Pallet Repairer Name Role Phone Name, Nitin PIKE Primary Care Provider [phone] Reason for Visit * Reason Comments Med Refill Encounter Details Date Type Department Care Team (Late st Contact Info) Description 01/09/2025 Refill [facility] 230 [place], [place] [phone] Name, MD Nitin 230 [place] [address] Hypertension, unspecified type Social History Tobacco Use [...] Description 11/07/2025 10:00 AM EST Office Visit [facility] MEDICINE [address] [place] [address] NameNitin MD [address] [place] [address] documented as of this encounter Visit Diagnoses Diagnosis Hypertension, unspecified type documented in this encounter Additional Health Concerns Assessment Noted Time PHQ-9 Depression Total Score: 6 02/13/20 9:14 AM EDT documented as of this encounter Care Teams Pallet Repairer Relationship Specialty Start Date End Date NameNitin MD [address] [place] [address] PCP - General Family Medicine 08/26/17 [facility] 09/01/24 documented as of this encounter
--- OUTSIDE RECORDS SUMMARY | 2025-08-20 08:57 | XMS_ITS | Encounter Summary ---
Author Organization [employer] Address 75 [facility] 7t [place] [address] Care Team Providers Care Wind Energy Mechanic Name Role Phone Name, Nitin PIKE Primary Care Provider [phone] Reason for Visit * Reason Onset Date Comments Call Back Request 03/14/2025 Encounter Details Date Type Department Care Team ([facility] st Contact Info) Description 03/14/2025 Telephone [facility] MEDICINE 230 [place], [place] [phone] Name, MD Nitin 230 [place] [address] Call Back Request Social History Tobacco Use [...] Description 11/07/2025 10:00 AM EST Office Visit [facility] MEDICINE 230 [place] [address] Name, MD Nitin 230 [place] [address] documented as of this encounter Visit Diagnoses Not on filedocumented in this encounter Additional Health Concerns Assessment Noted Time PHQ-9 Depression Total Score: 6 02/13/20 9:14 AM EDT documented as of this encounter Care Teams Wind Energy Mechanic Relationship Specialty Start Date End Date Name, MD Nitin 230 [place] [address] PCP - General Family Medicine 08/26/17 [facility] 09/01/24 documented as of this encounter
--- OUTSIDE RECORDS SUMMARY | 2025-08-20 08:57 | XMS_ITS | Encounter Summary ---
Author Organization [employer] Address 75 [facility] 7t [place] [address] Care Team Providers Care Gunner Mate Name Role Phone Name, Nitin PIKE Primary Care Provider [phone] Reason for Visit * Reason Onset Date Comments FYI 01/21/2024 ER Follow-up 01/21/2024 Encounter Details Date Type Department Care Team ([facility] st Contact Info) Description 01/21/2024 Telephone [facility] MEDICINE 230 [place], [place] [phone] Name, MD Nitin 230 [place] [address] FYI; ER Follow-up Social History Tobacco Use [...] 1:54 PM EDT Message from [facility] ED noted. [facility] note sent to medical records. PCP does not rx Trazodone. Pt to f/u with psych prescriber. Pt is scheduled for f/u with pcp 02/13/24. * Telephone Encounter - Janette Huitron - 01/21/2024 9:45 AM EDT Tc from [facility] with [facility] ED calling in regards to pt. States pt was seen today for anxiety and is requesting trazodone. Will discharge pt with no medication change. Would also like to advise provider, pt was seen at [facility] on 01/17 for anxiety/insomnia as well documented in this encounter Plan of Treatment Upcoming Encounters Date Type Department Care Team (Late st Contact Info) Description 11/07/2025 10:00 AM EST Office Visit [facility] MEDICINE 230 [place] [address] Name, MD Nitin 230 [place] [address] documented as of this encounter Visit Diagnoses Not on filedocumented in this encounter Additional Health Concerns Assessment Noted Time PHQ-9 Depression Total Score: 12 023 9:37 AM EDT documented as of this encounter Care Teams Gunner Mate Relationship Specialty Start Date End Date Name, MD Nitin 230 [place] [address] PCP - General Family Medicine 08/26/17 [facility] 09/01/24 documented as of this encounter
--- NOTE | 2025-08-20 09:04 | ED.GENADULT ---
HPI - General Adult General Chief complaint: Back Pain/Injury Stated complaint: LOWER BACK PAIN Time Seen by Provider: 08/20/25 09:03 Source: patient, EMS and seismic interpreter (all interactions with this patient were facilitated with an [facility] approved interpreter and translator) Mode of arrival: EMS Limitations: language barrier (all interactions with this patient were facilitated with an [facility] approved interpreter and translator) History of Present Illness ED Provider: Dyana Andrews PA-C HPI narrative: Patient is an 79 year old assigned female at with a history of HTN, HLD, anxiety, arthritis, vertigo, dementia, hemorrhoids, SVT, CKD, and PE on eliquis presenting to the emergency department today with right sided back pain that radiates down both of her legs. Patient states that over the last 4 days she has had right sided low back pain that radiates down both of her legs. Patient denies any other complaints at this time. Onset (ago): day(s) (4) Related Data Home Medications ?Medication ?Instructions ?Recorded ?Confirmed mirtazapine 45 mg tablet 45 mg PO BEDTIME 08/09/20 03/16/25 omeprazole 20 mg tablet,delayed 20 mg PO DAILY@0630 08/09/20 03/16/25 release aspirin 81 mg tablet,delayed 81 mg PO QAM 01/28/24 03/16/25 release bisacodyl 5 mg tablet,delayed 5 mg PO DAILY PRN constipation 01/28/24 03/16/25 release diphenhydramine HCl 25 mg tablet 25 mg PO BEDTIME PRN itch 01/28/24 03/16/25 (Lou-Dryl) ferrous sulfate 325 mg (65 mg 325 mg PO DAILY 01/28/24 03/16/25 iron) tablet (FeroSul) melatonin 10 mg tablet,extended 10 mg PO BEDTIME PRN Insomnia 01/28/24 03/16/25 release multivitamin 1 tab PO QAM 01/28/24 03/16/25 rosuvastatin 20 mg tablet 20 mg PO BEDTIME 01/28/24 03/16/25 trazodone 50 mg tablet 50 mg PO BEDTIME 01/28/24 03/16/25 amlodipine 10 mg tablet 10 mg PO DAILY 02/09/24 03/16/25 acetaminophen 500 mg tablet 500 mg PO Q8H PRN pain 08/09/24 03/16/25 ipratropium bromide 21 mcg (0.03 2 spray intranasal BID 08/09/24 03/16/25 %) nasal spray zolpidem 5 mg tablet 5 mg PO BEDTIME PRN Insomnia 08/09/24 03/16/25 cholecalciferol (vitamin D3) 25 25 mcg PO DAILY 08/20/24 03/16/25 mcg (1,000 unit) tablet meclizine 25 mg tablet 25 mg PO DAILY PRN 09/29/24 03/16/25 sertraline 100 mg tablet 100 mg PO DAILY 03/16/25 03/16/25 Previous Rx's ?Medication ?Instructions ?Recorded metoprolol succinate 50 mg 50 mg PO DAILY #90 tabs 09/28/20 tablet,extended release 24 hr fluticasone propionate 50 2 spray intranasal DAILY #16 grams 09/16/23 mcg/actuation nasal spray,suspension (Flonase Allergy Relief) ondansetron 4 mg disintegrating 4 mg PO Q6H PRN nausea and 04/28/24 tablet vomiting #10 tabs hydroxyzine HCl 25 mg tablet 25 mg PO TID PRN anxiety #6 tabs 08/07/24 clonazepam 0.5 mg tablet 0.5 mg PO TID #180 tabs 08/10/24 gabapentin 100 mg capsule 100 mg PO TID #180 caps 08/10/24 hydroxyzine HCl 25 mg tablet 25 mg PO TID PRN anxiety #20 tabs 09/09/24 miconazole nitrate 2 % vaginal 1 appful vaginal BEDTIME 7 days 10/09/24 cream (Monistat 7) #45 grams nitrofurantoin 100 mg PO Q12H 3 days #6 caps 10/09/24 monohydrate/macrocrystals 100 mg capsule (Macrobid) miconazole nitrate 2 % topical 1 appl topical BID #28 grams 01/01/25 cream ofloxacin 0.3 % ear drops 10 drp otic (ears) DAILY 7 days #5 02/01/25 mL docusate sodium 100 mg capsule 200 mg (2 x 100 mg) PO BID #30 caps 02/07/25 (Col-Rite) polyethylene glycol 3350 17 17 g PO Q8H #238 grams 02/07/25 gram/dose oral powder (ClearLax) white petrolatum 41 % topical 1 appl topical BID PRN irritated 02/07/25 ointment (Advanced Healing skin #50 grams (Petrolatum)) azithromycin 250 mg tablet 250 mg PO DAILY 4 days #4 tabs 02/14/25 (Zithromax) docusate sodium 100 mg capsule 200 mg (2 x 100 mg) PO BID #20 caps 02/24/25 (Colace) polyethylene glycol 3350 17 17 g PO BID #119 grams 02/24/25 gram/dose oral powder (Miralax) simethicone 180 mg capsule 180 mg PO BID PRN abdominal 03/03/25 distention #14 caps clonazepam 0.5 mg tablet 0.5 mg PO DAILY #4 tabs 04/17/25 acetaminophen 500 mg tablet 500 mg PO Q6H PRN fever or pain 05/04/25 #30 tabs meclizine 12.5 mg tablet 12.5 mg PO TID PRN vertigo 5 days 07/18/25 #20 tabs valsartan 160 mg tablet 160 mg PO QPM #90 tabs 07/18/25 ibuprofen 200 mg tablet 200 mg PO Q6H PRN pain #20 tabs 07/24/25 meclizine 12.5 mg tablet 12.5 mg PO TID PRN dizziness or 07/26/25 vertigo #30 tabs apixaban 5 mg tablet See Rx Instructions .Route 07/27/25 .COMPLEX #74 tabs naproxen 500 mg tablet 500 mg PO BID 5 days #10 tabs 08/07/25 cyclobenzaprine 5 mg tablet 5 mg PO TID PRN muscle spasm 1 day 08/20/25 #3 tabs Allergies Allergy/AdvReac Type Severity Reaction Status Date / Time penicillin G (Penicillin G) Allergy Severe ITCHY/RASH Verified 08/20/25 08:34 Sulfa (Sulfonamide Allergy Severe ITCHY,RASH, Verified 08/20/25 08:34 Antibiotics) (Sulfa rash (Sulfonamides)) trimethoprim (From Bactrim) Allergy Severe HIVES Verified 08/20/25 08:34 Penicillins Allergy Intermediate Hives Verified 08/20/25 08:34 sulfamethoxazole (From Allergy Mild Hives Verified 08/20/25 08:34 Bactrim) Review of Systems Constitutional: Constitutional: Reports as per HPI Eyes: Eyes: Reports as per HPI ENT: Reports as per HPI Cardiovascular: Cardiovascular: Reports as per HPI Respiratory: Respiratory: Reports as per HPI Gastrointestinal: Gastrointestinal: Reports as per HPI Genitourinary: Genitourinary: Reports as per HPI Musculoskeletal: Musculoskeletal: Reports as per HPI Integumentary/Breasts: Skin/Breast: Reports as per HPI Neurologic: Reports as per HPI Psychiatric: Psychiatric: Reports as per HPI Endocrine: Endocrine: Reports as per HPI Hematologic/Lymphatic: Hematologic/Lymphatic: Reports as per HPI Allergic/Immunologic: Allergic/Immunologic: Reports as per HPI [facility] Past Medical History Attestation statement: The following information was validated with the patient. 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 radiologic technologist) Unable to assess alcohol history related to: Unknown Alcohol intake: never Patient Tobacco Use Status: Never used Tobacco Advance Directives: Yes Advance Directives on File: Yes Advance Directives Date on File: 01/28/24 service: No Physical Exam ED Vital Signs: Vital Signs - 24 hr 08/20/25 08:31 08/20/25 11:47 Temperature 98.3 F 97.7 F Pulse Rate 80 71 Respiratory Rate 16 18 Blood Pressure 125/67 113/74 Pulse Oximetry 97 95 Oxygen Delivery Method Room Air Room Air BMI result Body Mass Index 25.8 Const General: cooperative, no acute distress, alert and awake Nutritional Appearance: well nourished Orientation/consciousness: patient oriented x3 HENMT Head: Yes normal to inspection and Yes atraumatic Ears: hearing grossly normal bilaterally and external ears normal General nose exam: Normal external nose present, no nasal discharge noted and no epistaxis Face and sinus: Yes normal facial exam, No abrasion and No laceration Mouth: Normal oral and palatal mucosa present, no drooling and no muffled voice Eyes General: appearance normal, both eyes and all related structures Periorbital: periorbital findings normal Eyelids: Yes eyelids normal Conjunctivae: conjunctivae normal Pupils: Equal, round and reactive pupils present EOM: EOMs intact bilaterally Neck Neck: Yes normal visual inspection and Yes full ROM Resp Effort & Inspection: normal respiratory effort and able to speak in complete sentences Neuro General: patient oriented x3, moves all extremities and CN's II-XI intact bilaterally Cranial nerves: Yes Equal, round and reactive pupils present Cognition (Neuro): normal cognition Extrem General: Yes normal to inspection, Yes full ROM and Yes capillary refill normal Psych Appearance: grossly normal Mental Status: mental status grossly normal Affect: normal affect Attitude: cooperative Thought process: Normal thought process present Thought content: Normal thought content present Insight: Good insight present (Psych) Medications Administered Discontinued Medications Generic Name Dose Route Start Last Admin Trade Name Freq PRN Reason Stop Dose Admin Cyclobenzaprine HCl 5 mg 08/20/25 09:18 08/20/25 09:22 Cyclobenzaprine Hcl 5 Mg Tablet PO 08/20/25 09:19 5 mg ONCE ONE Administration Medical Decision Making Medical Decision Making [facility] Narrative: Patient is an 79 year old assigned female at with a history of HTN, HLD, anxiety, arthritis, vertigo, dementia, hemorrhoids, SVT, CKD, and PE on eliquis presenting to the emergency department today with right sided back pain that radiates down both of her legs. Patient's physical exam was as noted in the physical exam portion of this note. Patient's blood work was unremarkable. Patient's clinical presentation is most consistent with a low back muscle spasm. I explained my physical exam findings as well as all test results to the patient. I answered all questions asked by the patient. Patient received flexeril which, upon re-evaluation, she stated it helped her symptoms significantly. I stressed the importance of the patient taking her medication as directed (either prescribed or as the over the counter packaging recommends). I stressed the importance of the patient following up with her primary care provider. I stressed the importance of the patient returning to the emergency department immediately if her symptoms were to worsen or if she were to develop any dizziness, shortness of breath, difficulty breathing, chest pain, blurry vision, loss of vision, nausea, vomiting, abdominal pain, fever, chills, back pain, or any other complaints. Patient verbalized agreement and understanding with this treatment plan and discharge. Differential Diagnosis Differential Diagnoses: The differential diagnosis associated with the presentation includes Low back pain Muscle spasm Admission/Observation Consideration of admission/observation: Escalation of care including admission/observation considered Patient would have been admitted to the hospital had her work up had any findings where hospital admission was appropriate and her clinical presentation warranted hospital admission. Lab Data [facility] Lab Attestation statement: I reviewed the patient's lab results. My interpretation of these results are in the [facility] Rationale portion of this note. 08/20/25 10:20 08/20/25 10:20 Labs: Lab Results 08/20/25 Range/Units 10:20 WBC 6.9 (4.8-10.8) X10*3/uL RBC 4.28 (4.20-5.50) X10*6/uL Hgb 11.9 L (12.0-16.0) g/dl Hct 36.3 L (37.0-47.0) % MCV 84.8 (80.0-98.0) fL MCH 27.8 (27.0-33.0) pg MCHC 32.8 (31.0-35.0) g/dl RDW 14.2 (11.0-16.0) % Plt Count 284 (160-400) X10*3/uL MPV 8.6 L (9.4-12.3) fL Immature Gran % (Auto) 0.4 (0.0-0.4) % Neut % (Auto) 58.0 (45-73) % Lymph % (Auto) 29.0 (20-40) % Thomas % (Auto) 10.2 (2-11) % Eos % (Auto) 1.4 (0-4) % Baso % (Auto) 1.0 (0-2) % Lymph # (Auto) 2.0 (1.2-4.9) X10*3/uL Thomas # (Auto) 0.7 (0.1-1.2) X10*3/uL Eos # (Auto) 0.1 (0.0-0.4) X10*3/uL Baso # (Auto) 0.1 (0.0-0.2) X10*3/uL Abs Immat Gran (auto) 0.03 (0.00-0.03) X10*3/uL Absolute Neuts (auto) 4.0 (2.0-8.3) x10*3/uL Absolute Nucleated RBC 0.000 (0.0-0.012) X10*3/uL Nucleated RBC % (auto) 0.0 (0.0-0.2) /100WBC Sodium 136 (135-145) mmol/L Potassium 4.6 (3.3-5.1) mmol/L Chloride 101 (96-108) mmol/L Carbon Dioxide 28 (22-29) mmol/L Anion Gap 12 (12-20) BUN 21 H (9-16) mg/dL Creatinine 0.89 (0.5-1.4) mg/dL Estim Creat Clear Calc 50.5 Estimated GFR > 60 Random Glucose 97 (60-115) mg/dL Calcium 9.3 (8.4-10.2) mg/dL Total Bilirubin 0.3 (0.0-1.0) mg/dL AST 31 (5-31) U/L ALT 21 (0-31) U/L Alkaline Phosphatase 83 (39-117) U/L Total Protein 8.2 H (6.5-8.0) g/dL Albumin 4.6 (3.5-5.0) g/dL Independent Historian Clinical information obtained from an independent historian. History obtained from or confirmed by: EMS (EMS provided additional history and confirmed the history provided by the patient.) External Record Review External record reviewed: Inpatient record Tests considered The following testing was considered but not selected: I considered obtaining a UA which the patient declined to provide and a CT of the lumbar spine however, the patient's current clinical presentation did not warrant imaging. Prescription Management I considered prescription management with: Pain Medication (patient prescribed pain medication) Discharge Plan Discharge Clinical Impression: Low back pain, Muscle spasm Patient Disposition: Home, Self-Care Instructions: Acute Low Back Pain (ED), Muscle Spasm (ED) Additional Instructions: IF you are prescribed home medications and/or you are taking over the counter medications at home - it is very important you continue to do so as prescribed / directed unless told otherwise. SI le recetan medicamentos y/o est? tomando medicamentos de venta edith, es muy importante que contin?e haci?ndolo seg?n lo recetado/indicado a menos que le indiquen lo contrario. Follow up with your primary care provider. Return to the emergency department immediately if your symptoms worsen or if you develop any dizziness, shortness of breath, difficulty breathing, chest pain, blurry vision, loss of vision, nausea, vomiting, abdominal pain, fever, chills, back pain, or any other complaints. Steve?seguimiento?con landry m?dico de atenci?n primaria. Acuda inmediatamente al servicio de urgencias si kelsi s?ntomas empeoran o si presenta falta de aliento, dificultad para respirar, dolor tor?cico, mareos, aturdimiento, dolor de espalda, dolor abdominal, fiebre, escalofr?os o cualquier otro s?ntoma. If you do not have a primary care provider - call any of the below numbers to establish and follow up with a primary care provider. Si no tiene un proveedor de atenci?n primaria, llame a cualquiera de los n?meros que aparecen a continuaci?n para establecer y hacer seguimiento con un proveedor de atenci?n primaria. [facility] Primary Care ([place]) [phone] [place] [address], [address] [facility] Primary Care ([address] [place]) [phone] [place] [address], [address] [facility], [address] [facility] Primary Care ([address] [place]) [phone] [place] [address], [address] [facility], [address] [facility] Primary Care ([place]) [phone] [place] [address] 2 [facility], [address] [facility] Family Medicine [phone] [address] [facility], [address] Please see the information below about our Patient Portal. If you are not yet enrolled in the [facility] Patient Portal, you will receive an enrollment email invitation following your visit to any [facility] setting. You may also self-enroll in the Patient Portal by visiting our website: [email or web address] The following information is required to access the Patient Portal: - Your [facility] Medical Record Number - Your personal home email address (must match what is in your electronic medical record, Registration staff can assist with this) - Name - Date of Capabilities of the Patient Portal: - Message some providers - View upcoming appointments - Access your health summary, medical history, and visit history - View current conditions and allergies - View procedure and lab results - View your medications, including guidelines, side effects, and precautions - Complete pre-appointment questionnaires requested by your provider - Ready summary reports of your office visits and procedures To access the Patient Portal Mobile Alex, follow these directions: - Search jaeyos in the Alex Store or [employer] Store - Download the Alex - Search for [facility] - Enter your login/password Portal del paciente Si usted no esta inscrito en el portal de pacientes de [facility], recibira suzy invitacion de inscripcion despues de landry visita al [facility] o al [facility] via correo electronico. Tambien puede inscribirse voluntariamente en el portal de pacientes visitando nuestra pagina web: [email or web address] La siguiente informacion sera requerida para acceder al portal: - Landry lula de historia medica de [facility] - Landry direccion de correo electronico personal - Nombre - Fecha de nacimiento Capacidades: Las siguientes capacidades estan disponibles en el portal de pacientes: - Enviar mensajes a algunos doctores - Verificar proximas citas - Acceso a landry historial de nito, registro medico e historial de visitas - Lary las condiciones actuales y alergias lary procedimientos y resultados del laboratorio - Lary kelsi medicamentos, incluyendo las pautas - Efectos secundarios y precauciones - Completar o llenar formularios / cuestionarios de - Citas solicitadas por landry doctor - Leer los resumenes de reportes medicos de kelsi visitas y procedimientos [place] acceder a la aplicacion movil: - [facility] [employer] en la Alex Store o [employer] Play Store - Descargue la aplicacion - [facility] - Ingrese landry nombre de usuario / Contrasena Prescriptions: New cyclobenzaprine 5 mg tablet 5 mg PO TID PRN (Reason: muscle spasm) 1 Days Qty: 3 0RF No Action metoprolol succinate 50 mg tablet extended release 24 hr 50 mg PO DAILY Qty: 90 2RF valsartan 160 mg tablet 160 mg PO QPM Qty: 90 1RF mirtazapine 45 mg Tablet 45 mg PO BEDTIME omeprazole 20 mg Tablet,Delayed Release (Dr/Ec) 20 mg PO DAILY@0630 fluticasone propionate [Flonase Allergy Relief] 50 mcg/actuation spray,suspension 2 spray intranasal DAILY Qty: 16 0RF Rx Instructions: administer into each nostril hydroxyzine HCl 25 mg tablet 25 mg PO TID PRN (Reason: anxiety) Qty: 6 0RF hydroxyzine HCl 25 mg tablet 25 mg PO TID PRN (Reason: anxiety) Qty: 20 0RF miconazole nitrate 2 % cream 1 appl topical BID Qty: 28 0RF azithromycin [Zithromax] 250 mg tablet 250 mg PO DAILY 4 Days Qty: 4 0RF Rx Instructions: start on day 2 of therapy clonazepam 0.5 mg tablet 0.5 mg PO DAILY Qty: 4 0RF meclizine 12.5 mg tablet 12.5 mg PO TID PRN (Reason: dizziness or vertigo) Qty: 30 0RF apixaban 5 mg tablet See Rx Instructions .ROUTE .COMPLEX Qty: 74 0RF Rx Instructions: Take 2 tablets (10mg) twice daily for the first 7 days THEN Take 1 tablet (5mg) twice daily for the remainder of the prescription. trazodone 50 mg tablet 50 mg PO BEDTIME ferrous sulfate [FeroSul] 325 mg (65 mg iron) tablet 325 mg PO DAILY diphenhydramine HCl [Lou-Dryl] 25 mg tablet 25 mg PO BEDTIME PRN (Reason: itch) bisacodyl 5 mg tablet,delayed release (DR/EC) 5 mg PO DAILY PRN (Reason: constipation) rosuvastatin 20 mg tablet 20 mg PO BEDTIME aspirin 81 mg tablet,delayed release (DR/EC) 81 mg PO QAM multivitamin Tablet 1 tab PO QAM melatonin 10 mg tablet extended release 10 mg PO BEDTIME PRN (Reason: Insomnia) cholecalciferol (vitamin D3) 25 mcg (1,000 unit) tablet 25 mcg PO DAILY ondansetron 4 mg tablet,disintegrating 4 mg PO Q6H PRN (Reason: nausea and vomiting) Qty: 10 0RF acetaminophen 500 mg tablet 500 mg PO Q8H PRN (Reason: pain) zolpidem 5 mg tablet 5 mg PO BEDTIME PRN (Reason: Insomnia) ipratropium bromide 21 mcg (0.03 %) spray,non-aerosol 2 spray intranasal BID clonazepam 0.5 mg Tablet 0.5 mg PO TID Qty: 180 0RF gabapentin 100 mg Capsule 100 mg PO TID Qty: 180 0RF nitrofurantoin monohyd/m-cryst [Macrobid] 100 mg capsule 100 mg PO Q12H 3 Days Qty: 6 0RF Rx Instructions: must administer with a meal/food miconazole nitrate [Monistat 7] 2 % cream 1 appful vaginal BEDTIME 7 Days Qty: 45 0RF ofloxacin 0.3 % drops 10 drp otic (ears) DAILY 7 Days Qty: 5 0RF docusate sodium [Col-Rite] 100 mg capsule 200 mg PO BID Qty: 30 0RF polyethylene glycol 3350 [ClearLax] 17 gram/dose powder 17 g PO Q8H Qty: 238 0RF Advanced Healing (Petrolatum) 41 % ointment 1 appl topical BID PRN (Reason: irritated skin) Qty: 50 0RF docusate sodium [Colace] 100 mg capsule 200 mg PO BID Qty: 20 0RF polyethylene glycol 3350 [Miralax] 17 gram/dose powder 17 g PO BID Qty: 119 0RF simethicone 180 mg capsule 180 mg PO BID PRN (Reason: abdominal distention) Qty: 14 0RF acetaminophen 500 mg tablet 500 mg PO Q6H PRN (Reason: fever or pain) Qty: 30 0RF meclizine 12.5 mg tablet 12.5 mg PO TID PRN (Reason: vertigo) 5 Days Qty: 20 0RF ibuprofen 200 mg tablet 200 mg PO Q6H PRN (Reason: pain) Qty: 20 0RF naproxen 500 mg tablet 500 mg PO BID 5 Days Qty: 10 0RF sertraline 100 mg tablet 100 mg PO DAILY amlodipine 10 mg tablet 10 mg PO DAILY meclizine 25 mg tablet 25 mg PO DAILY PRN Referrals: Nitin Echevarria MD [Primary Care Provider, Internal Medicine] Interventions: ED Discharge Assessment Last Done: 08/20/25 11:47 Discharge Date/Time: 08/20/25 11:48 Print Language: Scottish
[2025-08-20 10:30] LABS: MANUAL DIFF FLAG NO
[2025-08-20 10:31] LABS: Hematocrit 36.3 % (37.0-47.0); Hemoglobin 11.9 g/dl (12.0-16.0); Imm Gran Abs Auto 0.03 X10*3/uL (0.00-0.03); Imm Gran Pct Auto 0.4 % (0.0-0.4); Lymphocytes Absolute Auto 2.0 X10*3/uL (1.2-4.9); Mean Corpuscular HGB Conc 32.8 g/dl (31.0-35.0); Mean Corpuscular Hemoglobin 27.8 pg (27.0-33.0); Mean Corpuscular Volume 84.8 fL (80.0-98.0); NRBC Abs Auto 0.000 X10*3/uL (0.0-0.012); NRBC Pct Auto 0.0 /100WBC (0.0-0.2); Platelet Count 284 X10*3/uL (160-400); Red Blood Count 4.28 X10*6/uL (4.20-5.50); White Blood Count 6.9 X10*3/uL (4.8-10.8)
[2025-08-20 10:48] LABS: Alanine Aminotransferase 21 U/L (0-31); Albumin Level 4.6 g/dL (3.5-5.0); Alkaline Phosphatase 83 U/L (39-117); Anion Gap 12 (12-20); Aspartate Amino Transferase 31 U/L (5-31); Blood Urea Nitrogen 21 mg/dL (9-16); Calcium 9.3 mg/dL (8.4-10.2); Carbon Dioxide 28 mmol/L (22-29); Chloride 101 mmol/L (96-108); Creatinine Clr Calc Pharmacy 50.5; Estimated Glomerular Filt Rate > 60; Potassium 4.6 mmol/L (3.3-5.1); Sodium 136 mmol/L (135-145); Total Protein 8.2 g/dL (6.5-8.0)
[2025-08-20 11:47] VITALS: BP 113/74; PULSE 71; RESP 18; TEMP 36.5; O2SAT 95
== END 2025-08-20 11:48 | disposition home or self-care (01) ==
PROVIDERS: Emergency Provider Emergency Medicine; PCP Internal Medicine Geriatric Medicine
DX: M54.50 Low back pain, unspecified (principal); M62.830 Muscle spasm of back; I10 Essential (primary) hypertension; E78.5 Hyperlipidemia, unspecified; F41.9 Anxiety disorder, unspecified; Z86.711 Personal history of pulmonary embolism; Z79.01 Long term (current) use of anticoagulants
CPT/HCPCS: 36415; 80053; 85025; 99283; 99284

== ENCOUNTER 2025-08-21 01:22 | Emergency (ER) | payer OTHER, SELFPAY ==
[2025-08-21 01:39] VITALS: BP 140/76; PULSE 82; O2SAT 98
[2025-08-21 01:40] VITALS: BP 135/68; PULSE 77; RESP 18; TEMP 37.2; O2SAT 96; BMI 31.4
--- OUTSIDE RECORDS SUMMARY | 2025-08-21 02:31 | XMS_ITS | Encounter Summary ---
Author Organization [employer] Address [address] [facility] [address] [place] [address] Care Team Providers Care Structural Fitter Name Role Phone Name, Nitin PIKE Primary Care Provider [phone] Encounter Details Date Type Department Care Team [...] 10:00 AM EST Office Visit [facility] [address] [place] [id number] Name, MD Nitin [address] [place] [address] documented as of this encounter Procedures Procedure Name Priority Date/Time Associated Diagnosis Comments BASIC METABOLIC PANEL Routine 08/18/2025 8:44 AM EDT documented in this encounter Results * (ABNORMAL) Basic Metabolic Panel (08/18/2025 8:44 AM EDT) Sodium 137 135 - 145 mmol/L [facility] Potassium 4.6 3.3 - 5.1 mmol/L [facility] Chloride 101 96 - 108 mmol/L [facility] Carbon Dioxide 30(H) 22 - 29 mmol/L [facility] Anion Gap 11(L) 12 - 20 [facility] Urea Nitrogen (BUN) 19(H) 9 - 16 mg/dL [facility] Creatinine, Serum 0.94 0.5 - 1.4 mg/dL [facility] Estimated Glomerular Filt Rate 57 [facility] Comment:Chronic Kidney Disea se: Estimated GFR < 60 mL/min/[id number] Kidney Disease: Estimated GFR < 15 mL/min/1.73m2 Glucose 94 60 - 115 mg/dL [facility] Calcium 9.3 8.4 - 10.2 mg/dL [facility] 08/18/2025 8:44 AM EDT 08/18/2025 8:44 AM EDT us Generic External Data Provider LAB BLOOD ORDERAB LES Final Result [facility] [address] [place] [address] [phone] documented in this encounter Visit Diagnoses Not on filedocumented in this encounter Additional Health Concerns Assessment Noted Time PHQ-9 Depression Total Score: 3 04/29/20 25 9:41 AM EDT documented as of this encounter Care Teams Structural Fitter Relationship Specialty Start Date End Date Name, MD Nitin [address] [place] [address] PCP - General Family Medicine 08/26/17 [facility] 09/01/24 documented as of this encounter
--- OUTSIDE RECORDS SUMMARY | 2025-08-21 02:31 | XMS_ITS | Encounter Summary ---
Author Organization [employer] Address [address] [facility] [address] [place] [address] Care Team Providers Care Mortgage Branch Manager Name Role Phone Name, Nitin PIKE Primary Care Provider [phone] Reason for Visit * Reason Onset Date Comments Med Refill 11/08/2024 Encounter Details Date Type Department Care Team ([facility] st Contact Info) Description 11/08/2024 Telephone [facility]INE [address] [place], [place] [phone] Name, MD Nitin [address] [place] [address] Med Refill Social History Tobacco Use Types [...] 5 MG tablet To be sent to: [facility] - [place], [place] - [address] [facility] documented in this encounter Plan of Treatment Upcoming Encounters Date Type Department Care Team ([facility] st Contact Info) Description 11/07/2025 10:00 AM EST Office Visit [facility] MED[facility]INE [address] [place] [address] Name, MD Nitin [address] [place] [address] documented as of this encounter Visit Diagnoses Not on filedocumented in this encounter Additional Health Concerns Assessment Noted Time PHQ-9 Depression Total Score: 6 02/13/20 24 9:14 AM EDT documented as of this encounter Care Teams Mortgage Branch Manager Relationship Specialty Start Date End Date Name, MD Nitin [address] [place] [address] PCP - General Family Medicine 08/26/17 [facility] 09/01/24 documented as of this encounter
--- OUTSIDE RECORDS SUMMARY | 2025-08-21 02:31 | XMS_ITS | Clinical Summary ---
Author Organization [facility] Address [address] [address] Care Team Providers Care Paper Novelty Maker Name Role Phone Name, Nitin PIKE Primary Care Provider [phone] Allergies Active Allergy Reactions Criticality Noted Date [...] patient's age to complete this topic [place] [address] MCR ([id number]) S[place]ILLIPS [phone] [facility] MCR ([id number]) Care Teams Paper Novelty Maker Relationship Specialty Start Date End Date Name, MD Nitin [address] [place] [address] PCP - General Internal Medicine 10/15/22
--- OUTSIDE RECORDS SUMMARY | 2025-08-21 02:31 | XMS_ITS | Encounter Summary ---
Author Organization [employer] Address 75 [facility] 7[address] [place] [address] Care Team Providers Care Senior Loan Officer Name Role Phone Name, Nitin PIKE Primary Care Provider [phone] Reason for Visit * Reason Onset Date Comments Order(s) 12/09/2023 Encounter Details Date Type Department Care Team ([facility] Contact Info) Description 12/09/2023 Telephone [facility] MEDICINE 230 [place], [place] [phone] Name, MD Nitin 230 [place], [place] [phone] Order(s) Social History Tobacco Use Types Packs/Day [...] orders. If any questions please contact Noreen [phone]. documented in this encounter Plan of Treatment Upcoming Encounters Date Type Department Care Team (Late st Contact Info) Description 11/07/2025 10:00 AM EST Office Visit [facility] MEDICINE [address] [place] [address] Name, MD Nitin 230 [place] [address] documented as of this encounter Visit Diagnoses Not on filedocumented in this encounter Additional Health Concerns Assessment Noted Time PHQ-9 Depression Total Score: 12 023 9:37 AM EDT documented as of this encounter Care Teams Senior Loan Officer Relationship Specialty Start Date End Date Name, MD Nitin [address] [place] [address] PCP - General Family Medicine 08/26/17 [facility] 09/01/24 documented as of this encounter
--- OUTSIDE RECORDS SUMMARY | 2025-08-21 02:31 | XMS_ITS | Encounter Summary ---
Author Organization [employer] Address [address] [facility] [address] [place] [address] Care Team Providers Care Aquaculture Farm Manager Name Role Phone Name, Nitin PIKE Primary Care Provider [phone] Reason for Visit * Reason Comments Med Refill Encounter Details Date Type Department Care Team ([facility] st Contact Info) Description 06/28/2024 Refill [facility] 230 [place], [place] [phone] Mel Anguiano FNP 230 [place] [address] Social History Tobacco Use Types Packs/Day Years [...] Description 11/07/2025 10:00 AM EST Office Visit [facility] MEDICINE [address] [place] [address] Name, MD Nitin [address] [place] [address] documented as of this encounter Visit Diagnoses Not on filedocumented in this encounter Additional Health Concerns Assessment Noted Time PHQ-9 Depression Total Score: 6 02/13/20 24 9:14 AM EDT documented as of this encounter Care Teams Aquaculture Farm Manager Relationship Specialty Start Date End Date Name, MD Nitin [address] [place] [address] PCP - General Family Medicine 08/26/17 [facility] 09/01/24 documented as of this encounter
--- OUTSIDE RECORDS SUMMARY | 2025-08-21 02:31 | XMS_ITS | Encounter Summary ---
Author Organization [employer] Address [address] [facility] [address] [place] [address] Care Team Providers Care Rehab Consultant Name Role Phone Name, Nitin PIKE Primary Care Provider [phone] Encounter Details Date Type Department Care Team ([facility] st Contact Info) Description 08/15/2025 Refill [facility] MEDICINE 230 [place], [place] [phone] Name, MD Nitin 230 [place] [address] Heartburn Social History Tobacco Use Types Packs/Day [...] Description 11/07/2025 10:00 AM EST Office Visit [facility] MEDICINE [address] [place] [address] Name, MD Nitin [address] [place] [address] documented as of this encounter Visit Diagnoses Diagnosis Heartburn documented in this encounter Additional Health Concerns Assessment Noted Time PHQ-9 Depression Total Score: 3 04/29/20 25 9:41 AM EDT documented as of this encounter Care Teams Rehab Consultant Relationship Specialty Start Date End Date Name, MD Nitin [address] [place] [address] PCP - General Family Medicine 08/26/17 [facility] 09/01/24 documented as of this encounter
--- OUTSIDE RECORDS SUMMARY | 2025-08-21 02:31 | XMS_ITS | Encounter Summary ---
Author Organization [employer] Address [address] [facility] [address] [place] [address] Care Team Providers Care Business Development Executive Name Role Phone Name, Nitin PIKE Primary Care Provider [phone] Reason for Visit * Reason Onset Date Comments ER Follow-up 05/31/2024 Encounter Details Date Type Department Care Team ([facility] Contact Info) Description 05/31/2024 Telephone [facility] MEDICINE [address] [place], [place] [phone] Name, MD Nitin 230 [place] [address] ER Follow-up Social History Tobacco Use Types [...] to Pat ([facility]) [phone] for below message, no answer. LVM to call back on [phone]. * Telephone Encounter - Melany Santos RN - 05/31/2024 1:32 PM EDT DAVID T/C to pt. Through [place]ord[place] id - [id number] for below message, pt. Had recent fall and ED visit at [facility]. RN will request GRACE piedra from [facility]. Pt. Is doing good, states I am tired andsleeping. Pt. Dose not has any question or concern right now. Pt. Already has HDF apt. Schedule on 06/10/2024. Pt. Advised to give call to [facility] if any questions or concerns. Pt. Verbally agreed and understood. Please review and advise if needed. * Telephone Encounter - Adithya Solorzano - 05/31/2024 12:50 PM EDT Patient calling to report ED visit on : Date: 05/26 Hospital: [facility] Seen for: Fall, Back Pain Pat stated pt is requesting a sooner apt with pcp due to recent ER visit. PT is also requesting order for PT services for to go along with [facility]. documented in this encounter Plan of Treatment Upcoming Encounters Date Type Department Care Team (Late st Contact Info) Description 11/07/2025 10:00 AM EST Office Visit [facility] MEDICINE [address] [place] [address] Name, MD Nitin 230 [place] [address] documented as of this encounter Visit Diagnoses Not on filedocumented in this encounter Additional Health Concerns Assessment Noted Time PHQ-9 Depression Total Score: 6 02/13/20 24 9:14 AM EDT documented as of this encounter Care Teams Business Development Executive Relationship Specialty Start Date End Date Name, MD Nitin [address] [place] [address] PCP - General Family Medicine 08/26/17 [facility] 09/01/24 documented as of this encounter
--- OUTSIDE RECORDS SUMMARY | 2025-08-21 02:31 | XMS_ITS | Encounter Summary ---
Author Organization [employer] Address 75 [facility] [address] [place] [address] Care Team Providers Care Grout Machine Tender Name Role Phone Name, Nitin PIKE Primary Care Provider [phone] Reason for Visit * Reason Comments Med Refill Encounter Details Date Type Department Care Team (Late st Contact Info) Description 08/17/2025 Refill [facility] MEDICINE 230 [place], [place] [phone] Miryam Riley NP 230 [place], [place] [phone] Hypertension, unspecified type Social History Tobacco Use [...] Description 11/07/2025 10:00 AM EST Office Visit [facility] MEDICINE [address] [place] [address] NameNitin MD 230 [place] [address] documented as of this encounter Visit Diagnoses Diagnosis Hypertension, unspecified type documented in this encounter Additional Health Concerns Assessment Noted Time PHQ-9 Depression Total Score: 3 04/29/20 25 9:41 AM EDT documented as of this encounter Care Teams Grout Machine Tender Relationship Specialty Start Date End Date Name, MD Nitin [address] [place] [address] PCP - General Family Medicine 08/26/17 [facility] 09/01/24 documented as of this encounter
--- OUTSIDE RECORDS SUMMARY | 2025-08-21 02:31 | XMS_ITS | Encounter Summary ---
Author Organization [employer] Address [address] [facility] [address] [place] [address] Care Team Providers Care Spinner Box Name Role Phone Name, Nitin PIKE Primary Care Provider [phone] Reason for Visit * Reason Comments Med Refill Encounter Details Date Type Department Care Team ([facility] st Contact Info) Description 08/17/2025 Refill [facility] MEDICINE [address] [place], [place] [phone] Name, MD Nitin [address] [place] [address] Social History Tobacco Use Types Packs/Day Years [...] Description 11/07/2025 10:00 AM EST Office Visit [facility] MEDICINE [address] [place] [address] NameNitin MD 230 [place] [address] documented as of this encounter Visit Diagnoses Not on filedocumented in this encounter Additional Health Concerns Assessment Noted Time PHQ-9 Depression Total Score: 3 04/29/20 25 9:41 AM EDT documented as of this encounter Care Teams Spinner Box Relationship Specialty Start Date End Date NameNitin MD [address] [place] [address] PCP - General Family Medicine 08/26/17 [facility] 09/01/24 documented as of this encounter
--- OUTSIDE RECORDS SUMMARY | 2025-08-21 02:31 | XMS_ITS | Clinical Summary ---
Author Organization [employer] Address [address] [place] [address] [address] [place] [address] Care Team Providers Care Film Processing Shift Supervisor Name Role Phone Name, Nitin PIKE Primary Care Provider [phone] Allergies Active Allergy Reactions Criticality Noted Date [...] MOUTH EVERY 8 HOURS NEEDED FOR PAIN ([employer] [place] [employer] [place] [facility]) 90 tablet 025 Active omeprazole (PriLOSEC) [...] MOUTH EVERY 8 HOURS NEEDED FOR PAIN ([employer] [place] [facility]) 90 tablet 2024 Discontinued(R eorder (will [...] it calms her down. I called [facility] pharmacy to attempt a med rec they instructed me that she is on med box and one week at a time prescriptions because she would break into her med boxes to take more Ambien or xanax. She is being seen by Izzy Perea at [facility]. He is aware of [...] I received a call from the [facility] pharmacy instructing me that she [...] DEPARTMENT Provider, Generic External Data 08/17/2025 Refill [facility] [address] [place] [address] Nitin Echevarria MD 08/17/2025 Refill [facility] [address] [place] [address] Miryam Riley NP Hypertension, unspecified type 08/15/2025 Refill [facility] [address] [place] [address] Nitin Echevarria MD Heartburn 08/14/2025 Refill [facility] [address] [place], [place] [phone] Nitin Echevarria MD Heartburn; Vitamin D deficiency 08/09/2025 11:15 AM EDT Office Visit [facility] MEDICINE [address] [place] [address] Nitin Echevarria MD Generalized anxiety disorder with panic attacks (Primary Dx); Encounter for immunization; Chronic bilateral low back pain without sciatica 08/09/2025 Travel 08/01/2025 Refill [facility] [address] [place] [address] Nitin Echevarria MD Vitamin D deficiency 07/28/2025 Orders Only GENERIC EXTERNAL DATA DEPARTMENT Provider, Generic External Data 07/27/2025 Orders Only [facility] External Provider, [facility] 07/26/2025 Orders Only GENERIC EXTERNAL DATA DEPARTMENT Provider, Generic External Data 07/26/2025 Telephone [facility]INE [address] [place] [address] Nitin Echevarria MD ER Follow-up 07/25/2025 Refill [facility] [address] [place] [address] Nitin Echevarria MD 07/25/2025 Refill [facility] [address] [place] [address] Nitin Echevarria MD 07/18/2025 Refill [facility] [address] [place] [address] Miryam Riley NP 07/18/2025 Orders Only GENERIC EXTERNAL DATA DEPARTMENT Provider, Generic External Data 07/17/2025 Refill [facility] [address] [place] [address] Nitin Echevarria MD Hypertension, unspecified type 07/07/2025 8:40 AM EDT Office Visit [facility] WALK-IN [address] [address] Zach Javier MD Acute conjunctivitis of left eye, unspecified acute conjunctivitis type (Primary Dx) 07/07/2025 Travel 07/01/2025 9:20 AM EDT Office Visit [facility] [address] [address] Zach Javier MD Pedal edema (Primary Dx) 07/01/2025 Travel 06/28/2025 Refill [facility] [address] [place] [address] Nitin Echevarria MD 06/27/2025 Refill [facility] [address] [place] [address] Nitin Echevarria MD Vitamin D deficiency 06/19/2025 Refill [facility]ALK[facility] [address] [address] Nitin Echevarria MD Prediabetes 06/17/2025 9:30 AM EDT Office Visit [facility] MEDICINE [address] [place] [address] Thea Warren FNP Generalized anxiety disorder with panic attacks (Primary Dx); Essential (primary) hypertension 06/17/2025 Travel 06/17/2025 Telephone [facility] [address] [place], [place] [phone] Name, MD Nitin Med Refill (Pt is ) 06/08/2025 Refill [facility] [address] [place], [place] [phone] Name, MD Nitin 05/25/2025 Refill [facility] [address] [place], [place] [phone] Miryam Riley, KIKO Vitamin D deficiency from [...] 11/07/2025 10:00 AM EST Office Visit [facility] [address] [place] [address] Name, MD Nitin [address] [place] [address] Health Maintenance Due Date Last Done Comments [...] included. Sodium 137 135 - 145 mmol/L [facility] Potassium 4.6 3.3 - 5.1 mmol/L [facility] Chloride 101 96 - 108 mmol/L [facility] Carbon Dioxide 30(H) 22 - 29 mmol/L [facility] Anion Gap 11(L) 12 - 20 [facility] Urea Nitrogen (BUN) 19(H) 9 - 16 mg/dL [facility] Creatinine, Serum 0.94 0.5 - 1.4 mg/dL [facility] Estimated Glomerular Filt Rate 57 [facility] Comment:Chronic Kidney Disea se: Estimated GFR < 60 mL/min/1.86h1Nfpwab Kidney Disease: Estimated GFR < 15 mL/min/1.73m2 Glucose 94 60 - 115 mg/dL [facility] Calcium 9.3 8.4 - 10.2 mg/dL [facility] 08/18/2025 8:44 AM EDT 08/18/2025 8:44 AM EDT us Generic External Data Provider LAB BLOOD ORDERAB LES Final Result [facility] [address] [place] [phone] * Culture, Urine, Routine (07/28/2025 9:44 PM EDT) Only the most recent of3 resultswithin the time period is included. Urine Urine specimen obtained by clean catch procedure / Unknown 07/28/2025 9:44 PM EDT 07/28/2025 9:44 PM EDT Comment:UACC Narrative [facility] - 07/30/2025 9:57 AM EDT Urine Culture Report Result Urine Culture 10,000 to 50,000 cfu/ml Urine Culture Mixed bacterial jann characteristic of Urine Culture urogenital contamination. Specimen Source: Urine clean catch us Generic External Data Provider LAB MICROBIOLOGY - GENERAL ORDERABLES Final Result [facility] [address] [place] [phone] * CTA Chest PE Protocal (07/28/2025 8:35 PM EDT) Only the most recent of2 resultswithin the time period is included. Anatomical Region Laterality Modality Body, Chest Computed Tomogra phy 07/28/2025 8:35 PM EDT Narrative 07/28/2025 8:36 PM EDT [address] [address] [address] Scan Report Signed Patient: Noreen Wing MR#: [id number] : 1945 Acct:[id number] Age/Sex: 79 / F ADM Date: 07/28/25 Loc: .ED Attending Dr: Ordering Physician: Cuco Amador Date of Service: 07/28/25 Procedure(s): CT angio chest PE protocol Accession Number(s): [id number] cc: Cuco Amador; Name,Nitin PIKE Report Number: [id number]: Total DLP = 311.00 mGy-cm Reason for [...] in OV> 07/28/252034 DD/ 34 TD/TT: 07/28/252034 Litigation Manager: Procedure Note Donotuseinterpreter, Image - 07/28/[address] [address] [address] Scan Report Signed Patient: Jennifer Wing#: [id number] : 3Acct:[id number] Age/Sex: 79 / FADM Date: 07/28/25 Loc: HO.ED Attending Dr: Ordering Physician: uCco Amador Date of Service: 07/28/25 Procedure(s): CT angio chest PE protocol Accession Number(s): [id number] cc: Cuco Amador; Name,Nitin PIKE Report Number: [id number]: Total DLP = 311.00 mGy-cm Reason for [...] in OV> 07/28/252034 DD/ 34 TD/TT: 07/28/252034 Litigation Manager: [facility] External Provider IMG CT PROCEDURES Final Result * High Sensitivity Troponin I (07/28/2025 8:06 PM EDT) Only the most recent of4 resultswithin the time period is included. TROPONIN I HIGH SENSITIVITY <2.7 <3.5 - 17.0 ng/L [facility] Comment:The Mckeon high sens itivity Troponin-I results should beused in conjunction with other diagnostic information suchas ECG, clinical observations and information, and patientsymptoms to aid in the diagnosis of [place]. 07/28/2025 8:06 PM EDT 07/28/2025 8:12 PM EDT us Generic External Data Provider LAB BLOOD ORDERAB LES Final Result [facility] [address] [place] [address] [phone] * (ABNORMAL) Urinalysis, Complete, with Reflex to Culture (07/28/2025 8:06 PM EDT) Only the most recent of3 resultswithin the time period is included. Color Urine Yellow [facility] Appearance Urine Clear [facility] PH 6.0 5.0 - 9.0 [facility] Glucose Urine UA Negative Negative mg/dL [facility] Urine Blood Negative Negative [facility] Specific Webber - Urine >=1.030(H) 1.005 - 1.025 [facility] Urine Protein Negative Neg-Trace mg/dL [facility] Urine Ketones Negative Negative mg/dL [facility] Nitrite Urine Negative Negative [facility] Leukocyte Esterase Urine Small (1+)(A) Negative [facility] RBC Urine 0-2 0 - 2 /HPF [facility] Urine WBC 6-10(A) 0 - 5 /HPF [facility] Urine Squamous Epithelial Cell 0-2 0 - 2 /HPF [facility] Urine Bacteria None Seen None Seen [facility] Hyaline Casts, Urine 0-2 0 - 2 /LPF [facility] 07/28/2025 8:06 PM EDT 07/28/2025 8:12 PM EDT Narrative [facility] - 07/28/2025 9:26 PM EDT [id number], Clean Catch us Generic External Data Provider LAB URINE ORDERAB LES Final Result [facility] [address] [place] [phone] * CT Abdomen Pelvis w/ Contrast (07/28/2025 8:01 PM EDT) Anatomical Region Laterality Modality Body, Pelvis, Abdomen Computed T omography 07/28/2025 8:01 PM EDT Narrative 07/28/2025 8:03 PM EDT [address] [address] [address] Scan Report Signed Patient: Noreen Wing MR#: [id number] : 1945 Acct:[id number] Age/Sex: 79 / F ADM Date: 07/28/25 Loc: HO.ED Attending Dr: Ordering Physician: Cuco Amador Date of Service: 07/28/25 Procedure(s): CT abdomen pelvis w IV con Accession Number(s): [id number] cc: Cuco Amador; Name,Nitin PIKE Report Number: [id number]: Total DLP = 539.64 mGy-cm Reason for [...] in OV> 07/28/252001 DD/ 00 TD/TT: 07/28/252000 Litigation Manager: Procedure Note Donotuseinterpreter, Image - 07/28/[address] [place] [address] [address] Scan Report Signed Patient: Noreen WingMR#: [id number] : 1945cct:[id number] Age/Sex: 79 / FADM Date: 07/28/25 Loc: HO.ED Attending Dr: Ordering Physician: Cuco Amador Date of Service: 07/28/25 Procedure(s): CT abdomen pelvis w IV con Accession Number(s): [id number] cc: Cuco Amador; Name,Nitin PIKE Report Number: [id number]: Total DLP = 539.64 mGy-cm Reason for [...] in OV> 07/28/252001 DD/ 00 TD/TT: 07/28/252000 Litigation Manager: [facility] External Provider IMG CT PROCEDURES Final Result * (ABNORMAL) CBC auto differential (07/28/2025 5:01 PM EDT) Only the most recent of3 resultswithin the time period is included. White Blood Count 7.2 4.8 - 10.8 X10*3/uL [facility] Red Blood Count 3.71(L) 4.20 - 5.50 X10*6/uL [facility] Hemoglobin 10.6(L) 12.0 - 16.0 g/dl [facility] Hematocrit 31.4(L) 37.0 - 47.0 % [facility] Mean Corpuscular Volume 84.6 80.0 - 98.0 fL [facility] Mean Corpuscular Hemoglobin 28.6 27.0 - 33.0 pg [facility] Mean Corpuscular HGB Conc 33.8 31.0 - 35.0 g/dl [facility] Red Cell Distribution Width 14.0 11.0 - 16.0 % [facility] Platelet Count 245 160 - 400 X10*3/uL [facility] Mean Platelet Volume 8.8(L) 9.4 - 12.3 fL [facility] Neutrophils Percent Auto 57.8 45 - 73 % [facility] Imm Gran Pct Auto 0.3 0.0 - 0.4 % [facility] Lymphocytes Percent Auto 27.2 20 - 40 % [facility] Monocytes Percent Auto 12.5(H) 2 - 11 % [facility] Eosinophils Percent Auto 1.8 0 - 4 % [facility] Basophils Percent Auto 0.4 0 - 2 % [facility] NRBC Pct Auto 0.0 0.0 - 0.2 /100WBC [facility] Neutrophils Absolute Auto 4.2 2.0 - 8.3 x10*3/uL [facility] Imm Gran Abs Auto 0.02 0.00 - 0.03 X10*3/uL [facility] Lymphocytes Absolute Auto 2.0 1.2 - 4.9 X10*3/uL [facility] Monocytes Absolute Auto 0.9 0.1 - 1.2 X10*3/uL [facility] Eosinophils Absolute Auto 0.1 0.0 - 0.4 X10*3/uL [facility] Basophils Absolute Auto 0.0 0.0 - 0.2 X10*3/uL [facility] NRBC Abs Auto 0.000 0.0 - 0.012 X10*3/uL [facility] 07/28/2025 5:01 PM EDT 07/28/2025 5:05 PM EDT Generic External Data Provider LAB BLOOD ORDERAB LES Final Result Performing Organization Address City/[facility]/ZIP Co de Phone Number [facility] [address] [place] [phone] * Partial Thromboplastin Time, Activated (APTT) (07/28/2025 5:01 PM EDT) Partial Thromboplastin Time 31.4 26.7 - 34.1 SEC [facility] 07/28/2025 5:01 PM EDT 07/28/2025 5:05 PM EDT Generic External Data Provider LAB BLOOD ORDERAB LES Final Result Performing Organization Address [facility]/ZIP Co de Phone Number [facility] [address] [place] [phone] * (ABNORMAL) Prothrombin Time-INR (07/28/2025 5:01 PM EDT) Prothrombin Time 14.3(H) 10.9 - 12.4 SEC [facility] INTERNATIONAL NORM RATIO 1.2(H) 0.9 - 1.1 [facility] Comment:INTERNATIONAL NORMAL IZED RATIO (INR) [...] ORDERAB LES Final Result Performing Organization Address City/[facility]/ZIP Co de Phone Number [facility] [address] [place] [phone] * Lipase (07/28/2025 5:01 PM EDT) Pathologist [facility] Lipase 31 8 - 78 U/L [facility] 07/28/2025 5:01 PM EDT 07/28/2025 5:05 PM EDT Generic External Data Provider LAB BLOOD ORDERAB LES Final Result Performing Organization Address [facility] Co de Phone Number [facility] [address] [place] [phone] * (ABNORMAL) Comprehensive Metabolic Panel (07/28/2025 5:01 PM EDT) Only the most recent of2 resultswithin the time period is included. Sodium 140 135 - 145 mmol/L [facility] Potassium 4.1 3.3 - 5.1 mmol/L [facility] Chloride 104 96 - 108 mmol/L [facility] Carbon Dioxide 30(H) 22 - 29 mmol/L [facility] Anion Gap 10(L) 12 - 20 [facility] Urea Nitrogen (BUN) 24(H) 9 - 16 mg/dL [facility] Creatinine, Serum 1.03 0.5 - 1.4 mg/dL [facility] Creatinine Clr Calc Pharmacy 50.1 [facility] Comment:Provided height and weight: 172.72 cm,89.5 kg.eGFR (calculated from the MDRD study equation) and eCrCl(calculated from the Cockcroft-Gault equation) are based ondifferent parameters and may not yield comparable results.If eCrCl result is absurd, please check patient'sheight/weight. Estimated Glomerular Filt Rate 51 [facility] Comment:Chronic Kidney Disea se: Estimated GFR < 60 mL/min/1.24f6Trhwqh Kidney Disease: Estimated GFR < 15 mL/min/1.73m2 Glucose 146(H) 60 - 115 mg/dL [facility] Calcium 8.4 8.4 - 10.2 mg/dL [facility] Bilirubin, Total 0.2 0.0 - 1.0 mg/dL [facility] Aspartate Amino Transferase 34(H) 5 - 31 U/L [facility] Alanine Aminotransferase 23 0 - 31 U/L [facility] Total Protein 7.3 6.5 - 8.0 g/dL [facility] Albumin Level 4.0 3.5 - 5.0 g/dL [facility] Alkaline Phosphatase 72 39 - 117 U/L [facility] 07/28/2025 5:01 PM EDT 07/28/2025 5:05 PM EDT us Generic External Data Provider LAB BLOOD ORDERAB LES Final Result [facility] [address] [place] [phone] * POCT HGB A1C (01/10/2025 11:02 [...] LDL-C. Jack SS et al. JITENDRA. 2013;310(19): 6349-2442 (http://education.LYCEEM.Adviesmanager.nl/faq/SNL064) Non-HDL Cholesterol 88 <130 mg/dL (calc) CONVERTED [...] Most Recently Relevant to Health Maintenance Insurance [id number] (HMO D-SNP) Care Teams Film Processing Shift Supervisor Relationship Specialty Start Date End Date Name, MD Nitin [address] [place] [address] PCP - General Family Medicine 08/26/17 [facility] 09/01/24
--- OUTSIDE RECORDS SUMMARY | 2025-08-21 02:31 | XMS_ITS | Encounter Summary ---
Author Organization [employer] Address [address] [facility] [address] [place] [address] Care Team Providers Care Laborer [employer] Name Role Phone Name, Nitin PIKE Primary Care Provider [phone] Reason for Visit * Reason Comments Med Refill Encounter Details Date Type Department Care Team (Late st Contact Info) Description 04/20/2025 Refill [facility] [address] [place] [address] Zechariah Cheung MD [address] [place] [address] Allergic rhinitis, unspecified seasonality, unspecified trigger Social [...] Description 11/07/2025 10:00 AM EST Office Visit [facility] [address] [place] [address] NameNitin MD [address] [place] [address] documented as of this encounter Visit Diagnoses Diagnosis Allergic rhinitis, unspecified seasonality, unspecified trigger documented in this encounter Additional Health Concerns Assessment Noted Time PHQ-9 Depression Total Score: 6 02/13/20 9:14 AM EDT documented as of this encounter Care Teams Laborer [employer] Relationship Specialty Start Date End Date Nitin Echevarria MD [address] [place] [phone] PCP - General Family Medicine 08/26/17 [facility] 09/01/24 documented as of this encounter
--- OUTSIDE RECORDS SUMMARY | 2025-08-21 02:31 | XMS_ITS | Encounter Summary ---
Author Organization [employer] Address [address] [facility] [address] [place] [address] Care Team Providers Care Dental Front Office Assistant Name Role Phone Name, Nitin PIKE Primary Care Provider [phone] Encounter Details Date Type Department Care Team ([facility] st Contact Info) Description 05/26/2023 Orders Only [facility] [address] [place] [address] Noreen Fox MD [address] [place] [address] Social History Tobacco Use Types Packs/Day Years [...] Encounters Date Type Department Care Team ([facility] st Contact Info) Description 11/07/2025 10:00 AM EST Office Visit [facility] [address] [place] [address] Name, MD Nitin [address] [place] [address] documented as of this encounter Visit Diagnoses Not on filedocumented in this encounter Care Teams Dental Front Office Assistant Relationship Specialty Start Date End Date [place], [place] [address] PCP - General Family Medicine 08/26/17 [facility] 09/01/24 documented as of this encounter
--- OUTSIDE RECORDS SUMMARY | 2025-08-21 02:31 | XMS_ITS | Encounter Summary ---
Author Organization [email or web address] Address [address] [facility] [address] [place] [address] Care Team Providers Care Mail Sorting Supervisor Name Role Phone Name, Nitin PIKE Primary Care Provider [phone] Reason for Visit * Reason Comments Med Refill Encounter Details Date Type Department Care Team (Late st Contact Info) Description 08/16/2024 Refill [facility] [address] [place], [place] [phone] Name, MD Nitin [address] [place] [address] Heartburn Social History Tobacco Use Types Packs/Day [...] EST Office Visit [facility] [address] [place] [phone] NameNitin MD [address] [place] [address] documented as of this encounter Visit Diagnoses Diagnosis Heartburn documented in this encounter Additional Health Concerns Assessment Noted Time PHQ-9 Depression Total Score: 6 02/13/20 24 9:14 AM EDT documented as of this encounter Care Teams Mail Sorting Supervisor Relationship Specialty Start Date End Date NameNitin MD [address] [place] [address] PCP - General Family Medicine 08/26/17 [facility] 09/01/24 documented as of this encounter
--- OUTSIDE RECORDS SUMMARY | 2025-08-21 02:31 | XMS_ITS | Encounter Summary ---
Author Organization [employer] Address [address] [facility] [address] [place] [address] Care Team Providers Care Safety Manager Name Role Phone Name, Nitin PIKE Primary Care Provider [phone] Reason for Visit * Reason Comments Med Refill Encounter Details Date Type Department Care Team (Late st Contact Info) Description 07/25/2025 Refill [facility] [address] [place], [place] [phone] Name, MD Nitin [address] [place] [address] Social History Tobacco Use Types Packs/Day Years [...] Description 11/07/2025 10:00 AM EST Office Visit [facility] [address] [place] [address] NameNitin MD [address] [place] [address] documented as of this encounter Visit Diagnoses Not on filedocumented in this encounter Additional Health Concerns Assessment Noted Time PHQ-9 Depression Total Score: 3 04/29/20 25 9:41 AM EDT documented as of this encounter Care Teams Safety Manager Relationship Specialty Start Date End Date NameNitin MD [address] [place] [address] PCP - General Family Medicine 08/26/17 [facility] 09/01/24 documented as of this encounter
--- OUTSIDE RECORDS SUMMARY | 2025-08-21 02:31 | XMS_ITS | Encounter Summary ---
Author Organization [employer] Address 75 [facility] [address] [place] [address] Care Team Providers Care Insurance Administrator Name Role Phone Name, Nitin PIKE Primary Care Provider [phone] Reason for Visit * Reason Comments Med Refill Encounter Details Date Type Department Care Team ([facility] st Contact Info) Description 04/01/2024 Refill [facility] [address] [place], [place] [phone] Name, MD Nitin 230 [place] [address] Rash Social History Tobacco Use Types Packs/Day [...] Description 11/07/2025 10:00 AM EST Office Visit [facility] [address] [place] [address] NameNitin MD [address] [place] [address] documented as of this encounter Visit Diagnoses Diagnosis Rash Rash and other nonspecific skin eruption documented in this encounter Additional Health Concerns Assessment Noted Time PHQ-9 Depression Total Score: 6 02/13/20 24 9:14 AM EDT documented as of this encounter Care Teams Insurance Administrator Relationship Specialty Start Date End Date NameNitin MD [address] [place] [address] PCP - General Family Medicine 08/26/17 [facility] 09/01/24 documented as of this encounter
--- OUTSIDE RECORDS SUMMARY | 2025-08-21 02:31 | XMS_ITS | Encounter Summary ---
Author Organization [employer] Address 75 [facility] 7[address] [place] [address] Care Team Providers Care Sap Project Manager Name Role Phone Name, Nitin PIKE Primary Care Provider [phone] Reason for Visit * Reason Onset Date Comments triage 12/18/2022 Encounter Details Date Type Department Care Team ([facility] st Contact Info) Description 12/18/2022 Telephone [facility] 230 [place], [place] [phone] Name, MD Nitin 230 [place] [address] triage Social History Tobacco Use Types Packs/Day [...] 12/18/2022 2:35 PM EST Called pt. Via [employer] neon glass bender [id number] Eduardo. Pt. States that she has a [...] phone. Please reach out to pt. With Polish speaking another time to see what her [...] Office Visit [facility] [address] [place] [address] Name, MD Nitin 230 [place] [address] documented as of this encounter Visit Diagnoses Not on filedocumented in this encounter Care Teams Sap Project Manager Relationship Specialty Start Date End Date Name, MD Nitin 230 [place] [address] PCP - General Family Medicine 08/26/17 [facility] 09/01/24 documented as of this encounter
--- OUTSIDE RECORDS SUMMARY | 2025-08-21 02:31 | XMS_ITS | Encounter Summary ---
Author Organization [employer] Address 75 [facility] 7[address] [place] [address] Care Team Providers Care Scale Attendant Name Role Phone Name, Nitin PIKE Primary Care Provider [phone] Reason for Visit * Reason Onset Date Comments Call Back Request 03/14/2025 Encounter Details Date Type Department Care Team ([facility] st Contact Info) Description 03/14/2025 Telephone [facility] 230 [place], [place] [phone] Name, MD Nitin 230 [place] [address] Call Back Request Social History Tobacco Use [...] Description 11/07/2025 10:00 AM EST Office Visit [facility] 230 [place] [address] Name, MD Nitin 230 [place] [address] documented as of this encounter Visit Diagnoses Not on filedocumented in this encounter Additional Health Concerns Assessment Noted Time PHQ-9 Depression Total Score: 6 02/13/20 9:14 AM EDT documented as of this encounter Care Teams Scale Attendant Relationship Specialty Start Date End Date Name, MD Nitin 230 [place] [address] PCP - General Family Medicine 08/26/17 [facility] 09/01/24 documented as of this encounter
--- OUTSIDE RECORDS SUMMARY | 2025-08-21 02:31 | XMS_ITS | Clinical Summary ---
Author Organization [facility] Address [address] [place] [address] Phone Care Team Providers Care Translation Director Name Role Phone Physician, No Pcp Primary [...] t [facility] [address] [place] [address], from Last 3 Months or Most Recently Relevant to Health Maintenance Insurance [facility] MEDICARE Member Subscriber Plan / Payer (Ef fective 2021-Present) Name:Noreen Wing Relation to Subscriber:Self Name:Noreen Wing Payer ID:[id number] Group ID:[id number] Type:Not on file Address: [place] [address] Care Teams Translation Director Relationship Specialty Start Date End Date Physician, No Pcp PCP - General 09/22/24
--- OUTSIDE RECORDS SUMMARY | 2025-08-21 02:31 | XMS_ITS | Encounter Summary ---
Author Organization [employer] Address 75 [facility] 7t [place] [address] Care Team Providers Care Solar Design Engineer Name Role Phone Name, Nitin PIKE Primary Care Provider [phone] Reason for Visit * Reason Onset Date Comments Results 08/29/2023 Encounter Details Date Type Department Care Team ([facility] st Contact Info) Description 08/29/2023 Telephone [facility] 230 [place], [place] [phone] Name, MD Nitin 230 [place] [address] Results Social History Tobacco Use Types Packs/Day [...] 09/01/2023 11:51 AM EDT Pt evaluated in [facility] today and is scheduled with pcp 09/03/23. * Telephone Encounter - Janette Huitron - 08/29/2023 4:06 PM EDT Tc from pt requesting a call in regards to urine results. Please contact pt at [phone] (Burundian) documented in this encounter Plan of Treatment Upcoming Encounters Date Type Department Care Team (Late st Contact Info) Description 11/07/2025 10:00 AM EST Office Visit [facility] [address] [place] [address] Name, MD Nitin [address] [place] [address] documented as of this encounter Visit Diagnoses Not on filedocumented in this encounter Additional Health Concerns Assessment Noted Time PHQ-9 Depression Total Score: 12 023 9:37 AM EDT documented as of this encounter Care Teams Solar Design Engineer Relationship Specialty Start Date End Date Name, MD Nitin [address] [place] [address] PCP - General Family Medicine 08/26/17 [facility] 09/01/24 documented as of this encounter
--- OUTSIDE RECORDS SUMMARY | 2025-08-21 02:31 | XMS_ITS | Encounter Summary ---
Author Organization [employer] Address 75 [facility] 7t [place] [address] Care Team Providers Care Field Instructor Name Role Phone Name, Nitin PIKE Primary Care Provider [phone] Encounter Details Date Type Department Care Team ([facility] Contact Info) Description 12/17/2022 Orders Only [facility] [address] [place], [place] [phone] Lisha Kelly LPN Social History Tobacco Use [...] Description 11/07/2025 10:00 AM EST Office Visit [facility] [address] [place] [address] Nitin Echevarria MD 230 [place] [address] documented as of this encounter Visit Diagnoses Not on filedocumented in this encounter Care Teams Field Instructor Relationship Specialty Start Date End Date NameNitin MD [address] [place] [address] PCP - General Family Medicine 08/26/17 [facility] 09/01/24 documented as of this encounter
--- OUTSIDE RECORDS SUMMARY | 2025-08-21 02:31 | XMS_ITS | Encounter Summary ---
Author Organization [employer] Address 75 [facility] 7[address] [place] [address] Care Team Providers Care Repair Supervisor Name Role Phone Name, Nitin PIKE Primary Care Provider [phone] Reason for Visit * Reason Comments Med Refill Encounter Details Date Type Department Care Team (Late st Contact Info) Description 08/14/2025 Refill [facility]S [address] [place], [place] [phone] Name, MD Nitin 230 [place] [address] Heartburn; Vitamin D deficiency Social History Tobacco [...] the aspirin. TC placed to pt via [employer] clinical staff pharmacist (Monie ID#[id number]) to confirm medications requesting for refill and advise of above message as needed. Call rings but no one answers and no option to leave voicemail. Per received message pt needs refills on the following: Aspirin, Vitamin, Amlodipine, Rosuvastation, Multivitamin, Ferrous Sulfate. Pt is not to be on aspirin perPCP visit note on 08/09/25. TC placed to [facility] pharmacy to determine which medications require [...] Multivitamin, Ferrous Sulfate. Pharmacy of choice is [facility] pharmacy. documented in this encounter Plan of Treatment Upcoming Encounters Date Type Department Care Team (Late st Contact Info) Description 11/07/2025 10:00 AM EST Office Visit [facility] MED[facility] [address] [place] [address] Name, MD Nitin [address] [place] [address] documented as of this encounter Visit Diagnoses Diagnosis Heartburn Vitamin D deficiency documented in this encounter Additional Health Concerns Assessment Noted Time PHQ-9 Depression Total Score: 3 04/29/20 25 9:41 AM EDT documented as of this encounter Care Teams Repair Supervisor Relationship Specialty Start Date End Date NameNitin MD [address] [place] [address] PCP - General Family Medicine 08/26/17 [facility] 09/01/24 documented as of this encounter
--- OUTSIDE RECORDS SUMMARY | 2025-08-21 02:31 | XMS_ITS | Encounter Summary ---
Author Organization [employer] Address 75 [facility] 7[address] [place] [address] Care Team Providers Care Pit Laborer Name Role Phone Name, Nitin PIKE Primary Care Provider [phone] Reason for Visit * Reason Onset Date Comments ER Follow-up 05/04/2024 Encounter Details Date Type Department Care Team ([facility] Contact Info) Description 05/04/2024 Telephone [facility] [address] [place], [place] [phone] Name, MD Nitin 230 [place] [address] ER Follow-up Social History Tobacco Use Types [...] 11:01 AM EDT T/C [place] pt. Through [place] id - [id number] for below message, No answer. LVM to call back [phone] . * Telephone Encounter - Adithya Solorzano - 05/04/2024 9:35 AM EDT Noreen with [facility] calling to report ED visit on : Date: 04/28 Hospital: [facility] Seen for: UTI, Nausea, Rash. Noreen advised will be forwarding message to team nurses. Please contact pt at [phone]. documented in this encounter Plan of Treatment Upcoming Encounters Date Type Department Care Team (Late st Contact Info) Description 11/07/2025 10:00 AM EST Office Visit [facility] [address] [place] [address] Name, MD Nitin [address] [place] [address] documented as of this encounter Visit Diagnoses Not on filedocumented in this encounter Additional Health Concerns Assessment Noted Time PHQ-9 Depression Total Score: 6 02/13/20 9:14 AM EDT documented as of this encounter Care Teams Pit Laborer Relationship Specialty Start Date End Date Name, MD Nitin [address] [place] [address] PCP - General Family Medicine 08/26/17 [facility] 09/01/24 documented as of this encounter
--- OUTSIDE RECORDS SUMMARY | 2025-08-21 02:31 | XMS_ITS | Encounter Summary ---
Author Organization [employer] Address 75 [facility] 7t [place] [address] Care Team Providers Care Emc Storage Architect Name Role Phone Name, Nitin PIKE Primary Care Provider [phone] Encounter Details Date Type Department Care Team ([facility] Contact Info) Description 08/08/2023 Telephone [facility] MEDICINE [address] [place] [address] [phone] Name, MD Nitin [address] [place] [address] [phone] Social History Tobacco Use Types Packs/Day Years [...] 11/07/2025 10:00 AM EST Office Visit [facility] MED[facility]INE [address] [place] [address] [phone] Name, MD Nitin [address] [place] [address] [phone] documented as of this encounter Visit Diagnoses Not on filedocumented in this encounter Additional Health Concerns Assessment Noted Time PHQ-9 Depression Total Score: 12 023 9:37 AM EDT documented as of this encounter Care Teams Emc Storage Architect Relationship Specialty Start Date End Date Name, MD Nitin 230 [place] [address] PCP - General Family Medicine 08/26/17 [facility] 09/01/24 documented as of this encounter
--- OUTSIDE RECORDS SUMMARY | 2025-08-21 02:31 | XMS_ITS | Encounter Summary ---
Author Organization [employer] Address 75 [facility] 7t [place] [address] Care Team Providers Care Sales Office Administrator Name Role Phone Name, Nitin PIKE Primary Care Provider [phone] Encounter Details Date Type Department Care Team (Late st Contact Info) Description 11/06/2022 Orders Only [facility] CH[facility] MED & PEDS [address] [place], [place] [phone] Lisha Kelly LPN Social History Tobacco Use [...] [facility] MEDICINE [address] [place] [address] NameNitin MD [address] [place] [address] documented as of this encounter Visit Diagnoses Not on filedocumented in this encounter Care Teams Sales Office Administrator Relationship Specialty Start Date End Date Nitin Echevarria MD [address] [place] [address] PCP - General Family Medicine 08/26/17 [facility] 09/01/24 documented as of this encounter
--- OUTSIDE RECORDS SUMMARY | 2025-08-21 02:31 | XMS_ITS | Encounter Summary ---
Author Organization [employer] Address 75 [facility] 7[address] [place] [address] Care Team Providers Care Gun Stock Maker Name Role Phone Name, Nitin PIKE Primary Care Provider [phone] Reason for Visit * Reason Onset Date Comments Hospital Follow-up 10/20/2024 Encounter Details Date Type Department Care Team ([facility] Contact Info) Description 10/20/2024 Telephone [facility] MEDICINE [address] [place], [place] [phone] Name, MD Nitin 230 [place] [address] Hospital Follow-up Social History Tobacco Use Types [...] from pt requesting a HDF appt. Hospital: [facility] Date of admission: 10/17 Discharge date: 10/19 Diagnosed: High Blood Pressure and Fever Contact pt at [phone] *Send message to [place] [facility] Care Coordinators documented in this encounter Plan of Treatment Upcoming Encounters Date Type Department Care Team (Late st Contact Info) Description 11/07/2025 10:00 AM EST Office Visit [facility] MED[facility] [address] [place] [address] Name, MD Nitin [address] [place] [address] documented as of this encounter Visit Diagnoses Not on filedocumented in this encounter Additional Health Concerns Assessment Noted Time PHQ-9 Depression Total Score: 6 02/13/20 24 9:14 AM EDT documented as of this encounter Care Teams Gun Stock Maker Relationship Specialty Start Date End Date Name, MD Nitin 230 [place] [address] PCP - General Family Medicine 08/26/17 [facility] 09/01/24 documented as of this encounter
--- OUTSIDE RECORDS SUMMARY | 2025-08-21 02:31 | XMS_ITS | Encounter Summary ---
Author Organization [employer] Address 75 [facility] [address] [place] [address] Care Team Providers Care Aluminum Boat Assembly Supervisor Name Role Phone Name, Nitin PIKE Primary Care Provider [phone] Reason for Visit * Reason Comments Med Refill Encounter Details Date Type Department Care Team (Late st Contact Info) Description 01/09/2025 Refill [facility] 230 [place], [place] [phone] Name, MD Nitin 230 [place] [address] Hypertension, unspecified type Social History Tobacco Use [...] Description 11/07/2025 10:00 AM EST Office Visit [facility] [address] [place] [address] NameNitin MD [address] [place] [address] documented as of this encounter Visit Diagnoses Diagnosis Hypertension, unspecified type documented in this encounter Additional Health Concerns Assessment Noted Time PHQ-9 Depression Total Score: 6 02/13/20 9:14 AM EDT documented as of this encounter Care Teams Aluminum Boat Assembly Supervisor Relationship Specialty Start Date End Date NameNitin MD [address] [place] [address] PCP - General Family Medicine 08/26/17 [facility] 09/01/24 documented as of this encounter
--- OUTSIDE RECORDS SUMMARY | 2025-08-21 02:31 | XMS_ITS | Encounter Summary ---
Author Organization [employer] Address 75 [facility] 7t [place] [address] Care Team Providers Care Whiskey Regauger Name Role Phone Name, Nitin PIKE Primary Care Provider [phone] Reason for Visit * Reason Onset Date Comments Durable Medical Equipment 12/09/2023 Encounter Details Date Type Department Care Team ([facility] st Contact Info) Description 12/09/2023 Telephone [facility] 230 [place], [place] [phone] Name, MD Nitin 230 [place], [place] [phone] Durable Medical Equipment Social History Tobacco Use [...] 10:11 AM EST DME rx faxed to [facility] as requested. RN will consult with S nurse and provide referral. * Telephone Encounter - Fozia Jacob RN - 12/09/2023 4:58 PM EST Call returned to [facility] at [facility] [phone] [facility] states that [facility] attempted to provide PT at home but pt refused. [facility] pt is requesting outpatient PT. [facility] pt is seeing a counselor more regularly and has agreed to VNA referral. Reports pt has had 3 falls in the past [address] [facility] states [facility] no longer has visiting nurses. [facility] recommends [employer] or [facility] for VNA referral. [facility] also requesting DME rx for rollator walker and a straight cane. Requests that DME rx be faxed to [phone]. Advised requests will be sent to pcp. * Telephone Encounter - Adithya Solorzano - 12/09/2023 4:25 PM EST Tc from [facility] requesting DME: Rollator walker . documented in this encounter Plan of Treatment Upcoming Encounters Date Type Department Care Team (Late st Contact Info) Description 11/07/2025 10:00 AM EST Office Visit [facility] [address] [place] [address] Name, MD Nitin [address] [place] [address] documented as of this encounter Visit Diagnoses Not on filedocumented in this encounter Additional Health Concerns Assessment Noted Time PHQ-9 Depression Total Score: 12 023 9:37 AM EDT documented as of this encounter Care Teams Whiskey Regauger Relationship Specialty Start Date End Date Name, MD Nitin [facility] [place] [address] PCP - General Family Medicine 08/26/17 [facility] 09/01/24 documented as of this encounter
--- OUTSIDE RECORDS SUMMARY | 2025-08-21 02:32 | XMS_ITS | Encounter Summary ---
Author Organization [employer] Address 75 [facility] 7[address] [place] [address] Care Team Providers Care Photographic Process Screen Maker Name Role Phone Name, Nitin PIKE Primary Care Provider [phone] Reason for Visit * Reason Onset Date Comments FYI 01/21/2024 ER Follow-up 01/21/2024 Encounter Details Date Type Department Care Team ([facility] st Contact Info) Description 01/21/2024 Telephone [facility] [address] [place], [place] [phone] Name, MD Nitin 230 [place] [address] FYI; ER Follow-up Social History Tobacco Use [...] - 01/21/2024 1:54 PM EDT Message from [facility] ED noted. [facility] note sent to medical records. PCP does not rx Trazodone. Pt to f/u with psych prescriber. Pt is scheduled for f/u with pcp 02/13/24. * Telephone Encounter - Janette Huitron - 01/21/2024 9:45 AM EDT Tc from [facility] with [facility] ED calling in regards to pt. [...] 10:00 AM EST Office Visit [facility] [address] [place] [address] Name, MD Nitin [address] [place] [address] documented as of this encounter Visit Diagnoses Not on filedocumented in this encounter Additional Health Concerns Assessment Noted Time PHQ-9 Depression Total Score: 12 023 9:37 AM EDT documented as of this encounter Care Teams Photographic Process Screen Maker Relationship Specialty Start Date End Date Name, MD Nitin [address] [place] [address] PCP - General Family Medicine 08/26/17 [facility] 09/01/24 documented as of this encounter
--- OUTSIDE RECORDS SUMMARY | 2025-08-21 02:32 | XMS_ITS | Encounter Summary ---
Author Organization [employer] Address 75 [facility] 7[address] [place] [address] Care Team Providers Care Senior Contracts Manager Name Role Phone Name, Nitin PIKE Primary Care Provider [phone] Reason for Visit * Reason Comments Med Refill Encounter Details Date Type Department Care Team (Late Contact Info) Description 03/02/2023 Refill [facility] MEDICINE [address] [place] [address] Karely Patiño MD [address] [place] [address] [phone] Social History Tobacco Use Types Packs/Day Years [...] Description 11/07/2025 10:00 AM EST Office Visit [facility] MEDICINE [address] [place] [address] Name, MD Nitin [address] [place] [address] documented as of this encounter Visit Diagnoses Not on filedocumented in this encounter Care Teams Senior Contracts Manager Relationship Specialty Start Date End Date Name, MD Nitin [address] [place] [address] PCP - General Family Medicine 08/26/17 [facility] 09/01/24 documented as of this encounter
--- OUTSIDE RECORDS SUMMARY | 2025-08-21 02:32 | XMS_ITS | Encounter Summary ---
Author Organization [employer] Address 75 [facility] [address] [place] [address] Care Team Providers Care Front Office Agent Name Role Phone Name, Nitin PIKE Primary Care Provider [phone] Encounter Details Date Type Department Care Team ([facility] Contact Info) Description 01/06/2023 Orders Only [facility] MED & PEDS [address] [place], [place] [phone] Lisha Kelly LPN Social History Tobacco Use [...] Description 11/07/2025 10:00 AM EST Office Visit [facility] MEDICINE [address] [place] [address] NameNitin MD 230 [place] [address] documented as of this encounter Visit Diagnoses Not on filedocumented in this encounter Care Teams Front Office Agent Relationship Specialty Start Date End Date NameNitin MD 230 [place] [address] PCP - General Family Medicine 08/26/17 [facility] 09/01/24 documented as of this encounter
--- OUTSIDE RECORDS SUMMARY | 2025-08-21 02:32 | XMS_ITS | Encounter Summary ---
Author Organization [employer] Address [address] [facility] [address] [place] [address] Care Team Providers Care Field Return Repairer Name Role Phone Name, Nitin PIKE Primary Care Provider [phone] Reason for Visit * Reason Onset Date Comments Verbal Orders 12/15/2023 Encounter Details Date Type Department Care Team ([facility] st Contact Info) Description 12/15/2023 Telephone [facility] [address] [place], [place] [phone] Name, MD Nitin [address] [place] [address] Verbal Orders Social History Tobacco Use Types [...] 12:03 PM EST Tc from [facility] with [facility] requesting verbal order to see pt 2 times a week for 4 weeks for Occupational Therapy, please contact [facility] at [phone] documented in this encounter Plan of Treatment Upcoming Encounters Date Type Department Care Team (Late st Contact Info) Description 11/07/2025 10:00 AM EST Office Visit [facility] [address] [place] [address] Name, MD Nitin [address] [place] [address] documented as of this encounter Visit Diagnoses Not on filedocumented in this encounter Additional Health Concerns Assessment Noted Time PHQ-9 Depression Total Score: 12 023 9:37 AM EDT documented as of this encounter Care Teams Field Return Repairer Relationship Specialty Start Date End Date Name, MD Nitin [address] [place] [address] PCP - General Family Medicine 08/26/17 [facility] 09/01/24 documented as of this encounter
--- OUTSIDE RECORDS SUMMARY | 2025-08-21 02:32 | XMS_ITS | Encounter Summary ---
Author Organization [employer] Address [address] [facility] [address] [place] [address] Care Team Providers Care Dba Manager Name Role Phone Name, Nitin PIKE Primary Care Provider [phone] Reason for Visit * Reason Onset Date Comments Verbal Orders 01/02/2024 Encounter Details Date Type Department Care Team ([facility] st Contact Info) Description 01/02/2024 Telephone [facility] [address] [place], [place] [phone] Name, MD Nitin [address] [place] [address] Verbal Orders Social History Tobacco Use Types [...] No answer. LVM to call back on [phone]. * Telephone Encounter - Melany Santos RN - 01/06/2024 10:25 AM EST Please review and advise for below request. * Telephone Encounter - Deana Bazzi - 01/02/2024 3:44 PM EST Tc from [facility] with [facility] requesting verbal orders for discharge pt from Occupational Therapy, due to pt refuses services, please contact [facility] at [phone]. documented in this encounter Plan of Treatment Upcoming Encounters Date Type Department Care Team (Late st Contact Info) Description 11/07/2025 10:00 AM EST Office Visit [facility] [address] [place] [address] Name, MD Nitin [address] [place] [address] documented as of this encounter Visit Diagnoses Not on filedocumented in this encounter Additional Health Concerns Assessment Noted Time PHQ-9 Depression Total Score: 12 023 9:37 AM EDT documented as of this encounter Care Teams Dba Manager Relationship Specialty Start Date End Date Name, MD Nitin [address] [place] [phone] PCP - General Family Medicine 08/26/17 [facility] 09/01/24 documented as of this encounter
--- NOTE | 2025-08-21 07:06 | ED.EXTPRO ---
HPI - Extremity Problem General Chief complaint: Extremity Problem Stated complaint: L Leg Pain Time Seen by Provider: 08/21/25 03:48 Source: patient Mode of arrival: EMS Limitations: language barrier History of Present Illness ED Provider: Dr. Marium Ny HPI Narrative: 79-year-old female with extensive past medical history including hypertension, hyperlipidemia, anxiety, osteoarthritis, dementia, SVT, CKD, pulmonary embolism previously on Eliquis presenting with right-sided back pain radiating down her right leg that has been ongoing for the last several days. Describes stabbing pain in her buttocks that radiates down to her toes on the right side. Pain is so severe that she is having a difficult time walking. Patient was seen in this emergency department earlier today for the same reason. She was ultimately discharged with a prescription for Flexeril after that seemed to help her pain while she was in the emergency department. Patient states that she really was not having relief from pain with Flexeril and has been feeling unsteady on her feet. No falls though. No loss of bowel or bladder control. No reported fever. Related Data Home Medications ?Medication ?Instructions ?Recorded ?Confirmed omeprazole 20 mg tablet,delayed 20 mg PO DAILY@0630 08/09/20 08/22/25 release aspirin 81 mg tablet,delayed 81 mg PO QAM 01/28/24 08/22/25 release bisacodyl 5 mg tablet,delayed 5 mg PO DAILY PRN constipation 01/28/24 08/22/25 release ferrous sulfate 325 mg (65 mg 325 mg PO DAILY 01/28/24 08/22/25 iron) tablet (FeroSul) melatonin 10 mg tablet,extended 10 mg PO BEDTIME PRN Insomnia 01/28/24 08/22/25 release multivitamin 1 tab PO QAM 01/28/24 08/22/25 rosuvastatin 20 mg tablet 20 mg PO BEDTIME 01/28/24 08/22/25 trazodone 50 mg tablet 50 mg PO BEDTIME 01/28/24 08/22/25 amlodipine 10 mg tablet 10 mg PO DAILY 02/09/24 08/22/25 acetaminophen 500 mg tablet 500 mg PO Q8H PRN pain 08/09/24 08/22/25 cholecalciferol (vitamin D3) 25 25 mcg PO DAILY 08/20/24 08/22/25 mcg (1,000 unit) tablet sertraline 100 mg tablet 100 mg PO DAILY 03/16/25 08/22/25 apixaban 5 mg tablet 5 mg PO BID 08/22/25 08/22/25 clonazepam 0.5 mg tablet 0.5 mg PO TID 08/22/25 08/22/25 fluticasone propionate 50 2 spray intranasal DAILY PRN 08/22/25 08/22/25 mcg/actuation nasal Allergic Symptoms spray,suspension (Flonase Allergy Relief) hydroxyzine HCl 25 mg tablet 10 mg PO DAILY PRN anxiety 08/22/25 08/22/25 ketotifen fumarate 0.025 % (0.035 1 drp ophthalmic (eye) BID PRN 08/22/25 08/22/25 %) eye drops allergies mirtazapine 45 mg tablet 45 mg PO BEDTIME 08/22/25 08/22/25 valsartan 160 mg tablet 160 mg PO QPM 08/22/25 08/22/25 Previous Rx's ?Medication ?Instructions ?Recorded metoprolol succinate 50 mg 50 mg PO DAILY #90 tabs 09/28/20 tablet,extended release 24 hr docusate sodium 100 mg capsule 200 mg (2 x 100 mg) PO BID #20 caps 02/24/25 (Colace) ibuprofen 200 mg tablet 200 mg PO Q6H PRN pain #20 tabs 07/24/25 meclizine 12.5 mg tablet 12.5 mg PO TID PRN dizziness or 07/26/25 vertigo #30 tabs Allergies Allergy/AdvReac Type Severity Reaction Status Date / Time penicillin G (Penicillin G) Allergy Severe ITCHY/RASH Verified 08/22/25 06:05 Sulfa (Sulfonamide Allergy Severe ITCHY,RASH, Verified 08/22/25 06:05 Antibiotics) (Sulfa rash (Sulfonamides)) trimethoprim (From Bactrim) Allergy Severe HIVES Verified 08/22/25 06:05 Penicillins Allergy Intermediate Hives Verified 08/22/25 06:05 sulfamethoxazole (From Allergy Mild Hives Verified 08/22/25 06:05 Bactrim) Review of Systems Review of Systems: as per HPI, full review of systems performed and negative but for the above mentioned pertinent positives and negatives. [facility] Past Medical History 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 or 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 (tail edger) Alcohol intake: never Patient Tobacco Use Status: Never used Tobacco Smoked in Last 30 Days: No Use of substances other than those prescribed or required for medical reasons: No Advance Directives: Yes Advance Directives on File: Yes Advance Directives Date on File: 01/28/24 Do you have a plan to hurt others: No Plan service: No Physical Exam Exam: Exam: GENERAL: Chronically ill-appearing, conversant, no acute distress. SKIN: Normal skin color for ethnicity, warm, dry, no rashes noted. HEENT: Normocephalic, atraumatic, no stridor, posterior oropharynx nonerythematous, EOMI. NECK: Soft, supple, full ROM, midline structures nontender, no step-offs, no deformities, no lymphadenopathy. CHEST: Heart regular rate and rhythm, no murmurs, symmetric chest rise and fall. PULMONARY: Clear to auscultation bilaterally, no labored breathing, no wheezes/rhales/ rhonchi. ABDOMINAL: Soft, nondistended, nontender, positive bowel sounds in all quadrants. : Deferred. MUSCULOSKELETAL: Normal tone, full range of motion, no deformities, no peripheral edema, tenderness to palpation overlying the right SI joint and piriformis, neurovascularly intact distally, positive straight leg raise at 30?, walks with antaglic gait. NEURO: Alert and oriented to person, CN II through XII intact, no focal neurologic deficits. PSYCHIATRIC: Flat affect, fluid speech, appropriate demeanor. Vital Signs: Vital Signs: Last Vital Signs Temp 98.2 F 08/21/25 10:31 Pulse 67 08/21/25 10:31 Resp 16 08/21/25 10:31 BP 145/85 H 08/21/25 10:31 Pulse Ox 99 08/21/25 10:31 O2 Del Method Room Air 08/21/25 10:31 BMI result Body Mass Index 31.4 Course Reevaluation(s) Reevaluation #1: Patient is alert oriented x3. Patient is not in any distress. No acute events overnight. Vital signs stable. Patient is awaiting case management evaluation and physical therapy Time: 09:06 Reevaluation #2: Patient does not want to wait for physical therapy evaluation and case management. Patient's daughter is here to pick her up. Patient states she will follow up with primary care provider or return back to the ED. Patient is not suicidal or homicidal. Patient denies any life-threatening/concerning symptoms. Time: 10:23 Medications Administered Discontinued Medications Generic Name Dose Route Start Last Admin Trade Name Beau PRN Reason Stop Dose Admin Gabapentin 300 mg 08/21/25 06:07 08/21/25 06:16 Gabapentin 300 Mg Capsule PO 08/21/25 06:08 300 mg ONCE ONE Administration Haloperidol 5 mg 08/21/25 04:16 08/21/25 04:33 Haloperidol 5 Mg Tablet PO 08/21/25 04:17 5 mg ONCE ONE Administration Medical Decision Making Medical Decision Making [facility] Narrative: Patient presents today with a chief complaint of back pain. Differential diagnosis includes musculoskeletal pain, osseous abnormality such as fracture or tumor, infection, spinal cord pathology such as cauda equina syndrome, ligamentous or disc pathology, vascular abnormalities, among many others. I reviewed the list of red flag features such as trauma, weight loss, abnormal neurological findings such as weakness, bowel or bladder incontinence, saddle paresthesia, as well as history of cancer, IV drug abuse, fever, to list a few. Based on history and physical examination, workup was initiated and results were reviewed. Patient had blood work performed earlier today which was normal. She has clinical picture most consistent with a sciatic nerve pain. No red flags on physical exam or history. No direct trauma to the spine. Plan for pain control and anxiety control. She is very tearful and anxious at baseline. We will contact physical therapy and case management to evaluate for safe discharge. Differential Diagnosis Differential Diagnoses: The differential diagnosis associated with the presentation includes (As above) Admission/Observation Consideration of admission/observation: Escalation of care including admission/observation considered Lab Data [facility] Lab Attestation statement: I reviewed the patient's lab results. Independent Historian Clinical information obtained from an independent historian. History obtained from or confirmed by: EMS External Record Review External record reviewed: Inpatient record Prescription Management I considered prescription management with: Pain Medication Chronic Conditions Patient?s care impacted by: Hypertension and Other (Osteoarthritis) Social Determinants Patient?s care significantly limited by Social Determinants of Health including: Problems related to primary support group and Other Social Determinant of Health Discharge Plan Discharge Clinical Impression: Acute right-sided back pain with sciatica, Unsteady gait Patient Disposition: Home, Self-Care Instructions: Acute Low Back Pain (ED), Back Pain (ED), Lower Back Exercises (ED) Additional Instructions: Recommend follow up with primary care provider. Return to the ED for urinary/bowel incontinence, abdominal pain, nausea, vomiting, flank pain, fever, chills, calf pain, leg swelling, chest pain, shortness of breath, rash, or any other concerning symptoms. You will not take clonazepam, any other benzos, or muscle relaxers while taking tramadol. Prescriptions: No Action metoprolol succinate 50 mg tablet extended release 24 hr 50 mg PO DAILY Qty: 90 2RF omeprazole 20 mg Tablet,Delayed Release (Dr/Ec) 20 mg PO DAILY@0630 meclizine 12.5 mg tablet 12.5 mg PO TID PRN (Reason: dizziness or vertigo) Qty: 30 0RF trazodone 50 mg tablet 50 mg PO BEDTIME ferrous sulfate [FeroSul] 325 mg (65 mg iron) tablet 325 mg PO DAILY bisacodyl 5 mg tablet,delayed release (DR/EC) 5 mg PO DAILY PRN (Reason: constipation) rosuvastatin 20 mg tablet 20 mg PO BEDTIME aspirin 81 mg tablet,delayed release (DR/EC) 81 mg PO QAM multivitamin Tablet 1 tab PO QAM melatonin 10 mg tablet extended release 10 mg PO BEDTIME PRN (Reason: Insomnia) cholecalciferol (vitamin D3) 25 mcg (1,000 unit) tablet 25 mcg PO DAILY acetaminophen 500 mg tablet 500 mg PO Q8H PRN (Reason: pain) docusate sodium [Colace] 100 mg capsule 200 mg PO BID Qty: 20 0RF ibuprofen 200 mg tablet 200 mg PO Q6H PRN (Reason: pain) Qty: 20 0RF ketotifen fumarate 0.025 % (0.035 %) drops 1 drp ophthalmic (eye) BID PRN (Reason: allergies) mirtazapine 45 mg tablet 45 mg PO BEDTIME clonazepam 0.5 mg tablet 0.5 mg PO TID hydroxyzine HCl 25 mg tablet 10 mg PO DAILY PRN (Reason: anxiety) fluticasone propionate [Flonase Allergy Relief] 50 mcg/actuation spray,suspension 2 spray intranasal DAILY PRN (Reason: Allergic Symptoms) Rx Instructions: administer into each nostril apixaban 5 mg tablet 5 mg PO BID valsartan 160 mg tablet 160 mg PO QPM sertraline 100 mg tablet 100 mg PO DAILY amlodipine 10 mg tablet 10 mg PO DAILY Referrals: Name,MD Nitin [Primary Care Provider, Internal Medicine] - 2 days Referral Note: Back pain sciatica Clinical Impression: Unsteady gait; Acute right-sided back pain with sciatica Discharge Date/Time: 08/21/25 10:32 Print Language: Cymraes
[2025-08-21 10:31] VITALS: BP 145/85; PULSE 67; RESP 16; TEMP 36.8; O2SAT 99
--- NOTE | 2025-08-21 12:37 | MHC.CM.PN ---
PT DC'D HOME W/DTR PRIOR TO CM ASSESSMENT, PER ED PROVIDER FAMILY DID NOT WANT TO WAIT FOR CM.
== END 2025-08-21 10:32 | disposition home or self-care (01) ==
PROVIDERS: Emergency Provider Emergency Medicine; PCP Internal Medicine Geriatric Medicine
DX: M54.31 Sciatica, right side (principal); R26.81 Unsteadiness on feet; M54.50 Low back pain, unspecified
CPT/HCPCS: 99283; 99284

== ENCOUNTER 2025-08-22 05:56 | Emergency (ER) | payer OTHER, SELFPAY ==
[2025-08-22] VITALS (9 sets, daily range): BP systolic 109–160; BP diastolic 57–80; PULSE 68–88; RESP 12–17; TEMP 36.5–37.1; O2SAT 94–100; BMI 29.3
--- NOTE | ~2025-08-22 | XR_ITS ---
CLINICAL HISTORY: atraumatic knee pain 4 view left knee Comparison: CR - XR KNEE LT 2V - 04/15/2025 02:38 AM EDT Findings: There is an ununited tibial apophyseal fracture with possible superimposed acute fracture. There is overlying prepatellar soft tissue swelling. No dislocations. No significant loss of joint space, osteophytes, or erosions. No joint effusion. No radiopaque foreign body. There is regional arterial calcification. IMPRESSION: 1. Tibial apophyseal fracture. This document has been electronically signed by: Francesco Lane MD on 08/22/2025 08:16:44
--- OUTSIDE RECORDS SUMMARY | 2025-08-22 06:20 | XMS_ITS | Encounter Summary ---
Author Organization [employer] Address [address] [facility] [address] [place] [address] Care Team Providers Care Solutions Operator Name Role Phone Name, Nitin PIKE Primary Care Provider [phone] Reason for Visit * Reason Comments Med Refill Encounter Details Date Type Department Care Team (Late st Contact Info) Description 04/20/2025 Refill [facility] [address] [place] [address] Zechariah Cheung MD [address] [place] [address] Allergic rhinitis, unspecified seasonality, unspecified trigger Social [...] 11/07/2025 10:00 AM EST Office Visit [facility] [address] [place] [address] NameNitin MD [address] [place] [address] documented as of this encounter Visit Diagnoses Diagnosis Allergic rhinitis, unspecified seasonality, unspecified trigger documented in this encounter Additional Health Concerns Assessment Noted Time PHQ-9 Depression Total Score: 6 02/13/20 9:14 AM EDT documented as of this encounter Care Teams Solutions Operator Relationship Specialty Start Date End Date Nitin Echevarria MD [address] [place] [id number] PCP - General Family Medicine 08/26/17 [facility] 09/01/24 documented as of this encounter
--- OUTSIDE RECORDS SUMMARY | 2025-08-22 06:20 | XMS_ITS | Encounter Summary ---
Author Organization [employer] Address [address] [facility] [address] [place] [address] Care Team Providers Care Bobbin Cleaner Hand Name Role Phone Name, Nitin PIKE Primary Care Provider [phone] Encounter Details Date Type Department Care Team [...] Description 11/07/2025 10:00 AM EST Office Visit [facility] MEDICINE [address] [place] [address] Name, MD Nitin [address] [place] [address] documented as of this encounter Procedures Procedure Name Priority Date/Time Associated Diagnosis Comments BASIC METABOLIC PANEL Routine 08/18/2025 8:44 AM EDT documented in this encounter Results * (ABNORMAL) Basic Metabolic Panel (08/18/2025 8:44 AM EDT) Sodium 137 135 - 145 mmol/L [facility] Potassium 4.6 3.3 - 5.1 mmol/L [facility] Chloride 101 96 - 108 mmol/L [facility] Carbon Dioxide 30(H) 22 - 29 mmol/L [facility] Anion Gap 11(L) 12 - 20 [facility] Urea Nitrogen (BUN) 19(H) 9 - 16 mg/dL [facility] Creatinine, Serum 0.94 0.5 - 1.4 mg/dL [facility] Estimated Glomerular Filt Rate 57 [facility] Comment:Chronic Kidney Disea se: Estimated GFR < 60 mL/min/1.96x6Ikzztu Kidney Disease: Estimated GFR < 15 mL/min/1.73m2 Glucose 94 60 - 115 mg/dL [facility] Calcium 9.3 8.4 - 10.2 mg/dL [facility] 08/18/2025 8:44 AM EDT 08/18/2025 8:44 AM EDT us Generic External Data Provider LAB BLOOD ORDERAB LES Final Result [facility] [address] [place] [phone] documented in this encounter Visit Diagnoses Not on filedocumented in this encounter Additional Health Concerns Assessment Noted Time PHQ-9 Depression Total Score: 3 04/29/20 25 9:41 AM EDT documented as of this encounter Care Teams Bobbin Cleaner Hand Relationship Specialty Start Date End Date Name, MD Nitin [address] [place] [address] PCP - General Family Medicine 08/26/17 [facility] 09/01/24 documented as of this encounter
--- OUTSIDE RECORDS SUMMARY | 2025-08-22 06:20 | XMS_ITS | Encounter Summary ---
Author Organization [employer] Address [address] [facility] [address] [place] [address] Care Team Providers Care Scientific Advisor Name Role Phone Name, Nitin PIKE Primary Care Provider [phone] Reason for Visit * Reason Comments Med Refill Encounter Details Date Type Department Care Team (Late st Contact Info) Description 07/25/2025 Refill [facility] [address] [place], [place] [phone] Name, MD Nitin [address] [place] [address] Social History Tobacco Use Types Packs/Day Years [...] EST Office Visit [facility] [address] [place] [address] NameNitin MD [address] [place] [address] documented as of this encounter Visit Diagnoses Not on filedocumented in this encounter Additional Health Concerns Assessment Noted Time PHQ-9 Depression Total Score: 3 04/29/20 25 9:41 AM EDT documented as of this encounter Care Teams Scientific Advisor Relationship Specialty Start Date End Date NameNitin MD [address] [place] [phone] PCP - General Family Medicine 08/26/17 [facility] 09/01/24 documented as of this encounter
--- OUTSIDE RECORDS SUMMARY | 2025-08-22 06:20 | XMS_ITS | Encounter Summary ---
Author Organization [employer] Address [address] [facility] [address] [place] [address] Care Team Providers Care Cellar Packer Name Role Phone Name, Nitin PIKE Primary Care Provider [phone] Encounter Details Date Type Department Care Team ([facility] st Contact Info) Description 05/26/2023 Orders Only [facility] MED[facility] [address] [place] [address] Noreen Fox MD [address] [place] [address] Social History Tobacco Use Types Packs/Day Years [...] Upcoming Encounters Date Type Department Care Team ([facility] st Contact Info) Description 11/07/2025 10:00 AM EST Office Visit [facility]INE [address] [place] [address] Name, MD Nitin [address] [place] [address] documented as of this encounter Visit Diagnoses Not on filedocumented in this encounter Care Teams Cellar Packer Relationship Specialty Start Date End Date Name, [place] [address] PCP - General Family Medicine 08/26/17 [facility] 09/01/24 documented as of this encounter
--- OUTSIDE RECORDS SUMMARY | 2025-08-22 06:20 | XMS_ITS | Encounter Summary ---
Author Organization [employer] Address [address] [facility] [address] [place] [address] Care Team Providers Care Special Services Director Name Role Phone Name, Nitin PIKE Primary Care Provider [phone] Reason for Visit * Reason Comments Med Refill Encounter Details Date Type Department Care Team ([facility] st Contact Info) Description 04/01/2024 Refill [facility] [address] [place], [place] [phone] Name, MD Nitin [address] [place] [address] Rash Social History Tobacco Use Types Packs/Day [...] 10:00 AM EST Office Visit [facility] [address] [place] [address] NameNitin MD [address] [place] [address] documented as of this encounter Visit Diagnoses Diagnosis Rash Rash and other nonspecific skin eruption documented in this encounter Additional Health Concerns Assessment Noted Time PHQ-9 Depression Total Score: 6 02/13/20 24 9:14 AM EDT documented as of this encounter Care Teams Special Services Director Relationship Specialty Start Date End Date NameNitin MD [address] [place] [address] PCP - General Family Medicine 08/26/17 [facility] 09/01/24 documented as of this encounter
--- OUTSIDE RECORDS SUMMARY | 2025-08-22 06:20 | XMS_ITS | Encounter Summary ---
Author Organization [employer] Address [address] [facility] [address] [place] [address] Care Team Providers Care Torch Straightener Name Role Phone Name, Nitin PIKE Primary Care Provider Reason for Visit * Reason Comments Med Refill Encounter Details Date Type Department Care Team ([facility] st Contact Info) Description 06/28/2024 Refill [facility] [address] [place], [place] [phone] Mel Anguiano FNP [address] [place] [address] Social History Tobacco Use Types Packs/Day Years [...] [facility] [address] [place] [address] Name, MD Nitin [address] [place] [address] documented as of this encounter Visit Diagnoses Not on filedocumented in this encounter Additional Health Concerns Assessment Noted Time PHQ-9 Depression Total Score: 6 02/13/20 24 9:14 AM EDT documented as of this encounter Care Teams Torch Straightener Relationship Specialty Start Date End Date Name, MD Nitin [address] [place] [id number] PCP - General Family Medicine 08/26/17 [facility] 09/01/24 documented as of this encounter
--- OUTSIDE RECORDS SUMMARY | 2025-08-22 06:20 | XMS_ITS | Encounter Summary ---
Author Organization [employer] Address [address] [facility] [address] [place] [address] Care Team Providers Care Boat Designer Name Role Phone Name, Nitin PIKE Primary Care Provider Reason for Visit * Reason Onset Date Comments ER Follow-up 05/04/2024 Encounter Details Date Type Department Care Team ([facility] Contact Info) Description 05/04/2024 Telephone [facility] [address] [place], [place] [phone] Name, MD Nitin [address] [place] [address] ER Follow-up Social History Tobacco Use Types [...] 11:01 AM EDT T/C to pt. Through Bikmo id - [id number] for below message, No answer. LVM to call back [phone] . * Telephone Encounter - Adithya Solorzano - 05/04/2024 9:35 AM EDT Noreen with [facility] calling to report ED visit on : Date: 04/28 Hospital: [facility] Seen for: UTI, Nausea, Rash. Noreen advised will be forwarding message to team nurses. Please contact pt at [phone]. documented in this encounter Plan of Treatment Upcoming Encounters Date Type Department Care Team (Late st Contact Info) Description 11/07/2025 10:00 AM EST Office Visit [facility] [address] [place] [address] Name, MD Nitin [address] [place] [address] documented as of this encounter Visit Diagnoses Not on filedocumented in this encounter Additional Health Concerns Assessment Noted Time PHQ-9 Depression Total Score: 6 02/13/20 9:14 AM EDT documented as of this encounter Care Teams Boat Designer Relationship Specialty Start Date End Date Name, MD Nitin [address] [place] [phone] PCP - General Family Medicine 08/26/17 [facility] 09/01/24 documented as of this encounter
--- OUTSIDE RECORDS SUMMARY | 2025-08-22 06:20 | XMS_ITS | Clinical Summary ---
Author Organization [facility] Address [address] [address] Care Team Providers Care Flotation Tender Name Role Phone Name, Nitin PIKE Primary Care Provider [phone] Allergies Active Allergy Reactions Criticality Noted Date [...] patient's age to complete this topic [place] [address] MCR ([id number]) [place] [phone] [facility] MCR ([id number]) Care Teams Flotation Tender Relationship Specialty Start Date End Date Name, MD Nitin [address] [place] [address] PCP - General Internal Medicine 10/15/22
--- OUTSIDE RECORDS SUMMARY | 2025-08-22 06:20 | XMS_ITS | Encounter Summary ---
Author Organization [employer] Address [address] [facility] [address] [place] [address] Care Team Providers Care Filter Tank Tender Helper Name Role Phone Name, Nitin PIKE Primary Care Provider [phone] Reason for Visit * Reason Comments Med Refill Encounter Details Date Type Department Care Team ([facility] st Contact Info) Description 08/17/2025 Refill [facility] [address] [place], [place] [phone] Name, MD Nitin [address] [place] [address] Social History Tobacco Use Types Packs/Day Years [...] [facility] [address] [place] [address] NameNitin MD [address] [place] [address] documented as of this encounter Visit Diagnoses Not on filedocumented in this encounter Additional Health Concerns Assessment Noted Time PHQ-9 Depression Total Score: 3 04/29/20 25 9:41 AM EDT documented as of this encounter Care Teams Filter Tank Tender Helper Relationship Specialty Start Date End Date NameNitin MD [address] [place] [address] PCP - General Family Medicine 08/26/17 [facility] 09/01/24 documented as of this encounter
--- OUTSIDE RECORDS SUMMARY | 2025-08-22 06:20 | XMS_ITS | Clinical Summary ---
Author Organization [facility] Address [address] [place] [address] Phone Care Team Providers Care Patternmaker Apprentice Metal Name Role Phone Physician, No Pcp Primary [...] mmol/L LAB CHEMISTRY METHOD 09/22/2024 3:15 AM [facility] Potassium 4.6 3.5 - 5.5 mmol/L LAB CHEMISTRY METHOD 09/22/2024 3:15 AM [facility] Chloride 98 96 - 110 mmol/L LAB CHEMISTRY METHOD 09/22/2024 3:15 AM [facility] CO2 28 21 - 32 mmol/L LAB CHEMISTRY METHOD 09/22/2024 3:15 AM [facility] Anion Gap 6 3 - 11 LAB CHEMISTRY METHOD 09/22/2024 3:15 AM [facility] Glucose 119(H) 70 - 100 mg/dL LAB CHEMISTRY METHOD 09/22/2024 3:15 AM [facility] BUN 25 5 - 25 mg/dL LAB CHEMISTRY METHOD 09/22/2024 3:15 AM [facility] Creatinine 1.18(H) 0.50 - 1.10 mg/dL LAB CHEMISTRY METHOD 09/22/2024 3:15 AM [facility] eGFR 47(L) >=60 mL/min/1. 73m2 LAB CHEMISTRY METHOD 09/22/2024 3:15 AM [facility] Comment:Calculation based on the Chronic Kidney Disease Epidemiology Collaboration (CKD-EPI) equation refit without adjustment for race. BUN/Creatinine Ratio 21.2 LAB CHEMISTRY METHOD 09/22/2024 3:15 AM [facility] Calcium 9.3 8.5 - 10.5 mg/dL LAB CHEMISTRY METHOD 09/22/2024 3:15 AM [facility] AST (SGOT) 37 10 - 42 unit/L LAB CHEMISTRY METHOD 09/22/2024 3:15 AM [facility] ALT (SGPT) 25 10 - 60 unit/L LAB CHEMISTRY METHOD 09/22/2024 3:15 AM [facility] Alkaline Phosphatase 77 42 - 121 unit/L LAB CHEMISTRY METHOD 09/22/2024 3:15 AM [facility] Total Protein 8.0 6.0 - 8.0 g/dL LAB CHEMISTRY METHOD 09/22/2024 3:15 AM EST [facility] Albumin 4.2 3.2 - 5.0 g/dL LAB CHEMISTRY METHOD 09/22/2024 3:15 AM EST [facility] Total Bilirubin 0.4 0.0 - 1.4 mg/dL LAB CHEMISTRY METHOD 09/22/2024 3:15 AM EST [facility] Blood Venous blood specimen / Unknown Venipuncture / Unknown 09/22/2024 2:28 AM EST 09/22/2024 2:31 AM EST Paul RUIZ LAB BLOOD ORDERABLES Final Resul t [facility] [address] [place] [address], from Last 3 Months or Most Recently Relevant to Health Maintenance Insurance [facility] MEDIC[facility] Member Subscriber Plan / Payer (Ef fective 2021-Present) Name:Noreen Wing Relation to Subscriber:Self Name:Noreen Wing Payer ID:[id number] Group ID:[id number] Type:Not on file Address: [address] [address] [phone] Care Teams Patternmaker Apprentice Metal Relationship Specialty Start Date End Date Physician, No Pcp PCP - General 09/22/24
--- OUTSIDE RECORDS SUMMARY | 2025-08-22 06:20 | XMS_ITS | Clinical Summary ---
Author Organization [employer] Address [address] [place] [address] [address] [place] [address] Care Team Providers Care Global Cto Name Role Phone Name, Nitin PIKE Primary Care Provider [phone] Allergies Active Allergy Reactions Criticality Noted Date [...] MOUTH EVERY 8 HOURS NEEDED FOR PAIN (ECUADOREAN LABEL) 90 tablet 025 Active omeprazole (PriLOSEC) [...] MOUTH EVERY 8 HOURS NEEDED FOR PAIN (ECUADOREAN LABEL) 90 tablet 2024 Discontinued(R eorder (will [...] calms her down. I called [facility] pharmacy to attempt a med rec they instructed me that she is on med box and one week at a time prescriptions because she would break into her med boxes to take more Ambien or xanax. She is being seen by Izzy Perea at [facility]. He is aware of [...] received a call from the [facility] pharmacy instructing me that she [...] DEPARTMENT Provider, Generic External Data 08/17/2025 Refill [facility] MEDICINE [address] [place] [address] Nitin Echevarria MD 08/17/2025 Refill [facility] MEDICINE [address] [place] [address] Miryam Riley NP Hypertension, unspecified type 08/15/2025 Refill [facility] MEDICINE [address] [place] [address] Nitin Echevarria MD Heartburn 08/14/2025 Refill [facility] [address] [place], [place] [phone] Nitin Echevarria MD Heartburn; Vitamin D deficiency 08/09/2025 11:15 AM EDT Office Visit [facility] MEDICINE [address] [place] [address] Nitin Echevarria MD Generalized anxiety disorder with panic attacks (Primary Dx); Encounter for immunization; Chronic bilateral low back pain without sciatica 08/09/2025 Travel 08/01/2025 Refill [facility] MEDICINE [address] [place] [address] Nitin Echevarria MD Vitamin D deficiency 07/28/2025 Orders Only GENERIC EXTERNAL DATA DEPARTMENT Provider, Generic External Data 07/27/2025 Orders Only [facility] External Provider, [facility] 07/26/2025 Orders Only GENERIC EXTERNAL DATA DEPARTMENT Provider, Generic External Data 07/26/2025 Telephone [facility] MEDICINE [address] [place] [address] Nitin Echevarria MD ER Follow-up 07/25/2025 Refill [facility] [address] [place] [address] Nitin Echevarria MD 07/25/2025 Refill [facility] MEDICINE [address] [place] [address] Nitin Echevarria MD 07/18/2025 Refill [facility] [address] [place] [address] Miryam Riley NP 07/18/2025 Orders Only GENERIC EXTERNAL DATA DEPARTMENT Provider, Generic External Data 07/17/2025 Refill [facility] MEDICINE [address] [place] [address] Nitin Echevarria MD Hypertension, unspecified type 07/07/2025 8:40 AM EDT Office Visit [facility] WALK-IN [address] [address] Zach Javier MD Acute conjunctivitis of left eye, unspecified acute conjunctivitis type (Primary Dx) 07/07/2025 Travel 07/01/2025 9:20 AM EDT [facility] [address] [address] Zach Javier MD Pedal edema (Primary Dx) 07/01/2025 Travel 06/28/2025 Refill [facility] [address] [place] [address] Nitin Echevarria MD 06/27/2025 Refill [facility] MED & PEDS [address] [place] [address] Nitin Echevarria MD Vitamin D deficiency 06/19/2025 Refill [facility] WALK-IN [address] [address] Nitin Echevarria MD Prediabetes 06/17/2025 9:30 AM EDT Office Visit [facility] MEDICINE [address] [place] [address] Thea Warren FNP Generalized anxiety disorder with panic attacks (Primary Dx); Essential (primary) hypertension 06/17/2025 Travel 06/17/2025 Telephone [facility] MEDICINE [address] [place], [place] [phone] Name, MD Nitin Med Refill (Pt is ) 06/08/2025 Refill [facility] PEDS [address] [place], [place] [phone] Name, MD Nitin 05/25/2025 Refill [facility] [address] [place], [place] [phone] Miryam Riley, KIKO Vitamin D deficiency from [...] 10:00 AM EST Office Visit [facility] MEDICINE [address] [place] [address] Name, MD Nitin [address] [place] [address] Health Maintenance Due Date Last Done Comments [...] included. Sodium 137 135 - 145 mmol/L [facility] Potassium 4.6 3.3 - 5.1 mmol/L [facility] Chloride 101 96 - 108 mmol/L [facility] Carbon Dioxide 30(H) 22 - 29 mmol/L [facility] Anion Gap 11(L) 12 - 20 [facility] Urea Nitrogen (BUN) 19(H) 9 - 16 mg/dL [facility] Creatinine, Serum 0.94 0.5 - 1.4 mg/dL [facility] Estimated Glomerular Filt Rate 57 [facility] Comment:Chronic Kidney Disea se: Estimated GFR < 60 mL/min/1.04c4Qxetld Kidney Disease: Estimated GFR < 15 mL/min/1.73m2 Glucose 94 60 - 115 mg/dL [facility] Calcium 9.3 8.4 - 10.2 mg/dL [facility] 08/18/2025 8:44 AM EDT 08/18/2025 8:44 AM EDT us Generic External Data Provider LAB BLOOD ORDERAB LES Final Result [facility] [address] [place] [phone] * Culture, Urine, Routine (07/28/2025 9:44 PM EDT) Only the most recent of3 resultswithin the time period is included. Urine Urine specimen obtained by clean catch procedure / Unknown 07/28/2025 9:44 PM EDT 07/28/2025 9:44 PM EDT Comment:UACC Narrative [facility] - 07/30/2025 9:57 AM EDT Urine Culture Report Result Urine Culture 10,000 to 50,000 cfu/ml Urine Culture Mixed bacterial jann characteristic of Urine Culture urogenital contamination. Specimen Source: Urine clean catch us Generic External Data Provider LAB MICROBIOLOGY - GENERAL ORDERABLES Final Result [facility] [address] [place] [phone] * CTA Chest PE Protocal (07/28/2025 8:35 PM EDT) Only the most recent of2 resultswithin the time period is included. Anatomical Region Laterality Modality Body, Chest Computed Tomogra phy 07/28/2025 8:35 PM EDT Narrative 07/28/2025 8:36 PM EDT [address] [address] [address] Scan Report Signed Patient: Noreen Wing MR#: [id number] : 1945 Acct:[id number] Age/Sex: 79 / F ADM Date: 07/28/25 Loc: .ED Attending Dr: Ordering Physician: Cuco Amador Date of Service: 07/28/25 Procedure(s): CT angio chest PE protocol Accession Number(s): [id number] cc: Cuco Amador; Name,Nitin PIKE Report Number: [id number]: Total DLP = 311.00 mGy-cm Reason for [...] in OV> 07/28/252034 DD/ 34 TD/TT: 07/28/252034 Stump Shooter: Procedure Note Donotuseinterpreter, Image - 07/28/[address] [address] [address] Scan Report Signed Patient: Jennifer Wing#: [id number] : 3Acct:[id number] Age/Sex: 79 / FADM Date: 07/28/25 Loc: HO.ED Attending Dr: Ordering Physician: Cuco Amador Date of Service: 07/28/25 Procedure(s): CT angio chest PE protocol Accession Number(s): [id number] cc: Cuco Amador; Name,Nitin PIKE Report Number: [id number]: Total DLP = 311.00 mGy-cm Reason for [...] in OV> 07/28/252034 DD/ 34 TD/TT: 07/28/252034 Stump Shooter: [facility] External Provider IMG CT PROCEDURES Final Result * High Sensitivity Troponin I (07/28/2025 8:06 PM EDT) Only the most recent of4 resultswithin the time period is included. TROPONIN I HIGH SENSITIVITY <2.7 <3.5 - 17.0 ng/L [facility] Comment:The Mckeon high sens itivity Troponin-I results should beused in conjunction with other diagnostic information suchas ECG, clinical observations and information, and patientsymptoms to aid in the diagnosis of CA. 07/28/2025 8:06 PM EDT 07/28/2025 8:12 PM EDT us Generic External Data Provider LAB BLOOD ORDERAB LES Final Result [facility] [address] [place] [address] [phone] * (ABNORMAL) Urinalysis, Complete, with Reflex to Culture (07/28/2025 8:06 PM EDT) Only the most recent of3 resultswithin the time period is included. Color Urine Yellow [facility] Appearance Urine Clear [facility] PH 6.0 5.0 - 9.0 [facility] Glucose Urine UA Negative Negative mg/dL [facility] Urine Blood Negative Negative [facility] Specific Sweeny - Urine >=1.030(H) 1.005 - 1.025 [facility] Urine Protein Negative Neg-Trace mg/dL [facility] Urine Ketones Negative Negative mg/dL [facility] Nitrite Urine Negative Negative [facility] Leukocyte Esterase Urine Small (1+)(A) Negative [facility] RBC Urine 0-2 0 - 2 /HPF [facility] Urine WBC 6-10(A) 0 - 5 /HPF [facility] Urine Squamous Epithelial Cell 0-2 0 - 2 /HPF [facility] Urine Bacteria None Seen None Seen [facility] Hyaline Casts, Urine 0-2 0 - 2 /LPF [facility] 07/28/2025 8:06 PM EDT 07/28/2025 8:12 PM EDT Narrative [facility] - 07/28/2025 9:26 PM EDT [id number], Clean Catch us Generic External Data Provider LAB URINE ORDERAB LES Final Result [facility] [address] [place] [phone] * CT Abdomen Pelvis w/ Contrast (07/28/2025 8:01 PM EDT) Anatomical Region Laterality Modality Body, Pelvis, Abdomen Computed T omography 07/28/2025 8:01 PM EDT Narrative 07/28/2025 8:03 PM EDT [address] [address] [address] Scan Report Signed Patient: Noreen Wing MR#: [id number] : 1945 Acct:[id number] Age/Sex: 79 / F ADM Date: 07/28/25 Loc: HO.ED Attending Dr: Ordering Physician: Cuco Amador Date of Service: 07/28/25 Procedure(s): CT abdomen pelvis w IV con Accession Number(s): [id number] cc: Cuco Amador; Name,Nitin PIKE Report Number: [id number]: Total DLP = 539.64 mGy-cm Reason for [...] in OV> 07/28/252001 DD/ 00 TD/TT: 07/28/252000 Stump Shooter: Procedure Note Donotuseinterpreter, Image - 07/28/[address] [place] [address] [address] Scan Report Signed Patient: Noreen WingMR#: [id number] : 1945cct:[id number] Age/Sex: 79 / FADM Date: 07/28/25 Loc: HO.ED Attending Dr: Ordering Physician: Cuco Amador Date of Service: 07/28/25 Procedure(s): CT abdomen pelvis w IV con Accession Number(s): [id number] cc: Cuco Amador; Name,Nitni PIKE Report Number: [id number]: Total DLP = 539.64 mGy-cm Reason for [...] in OV> 07/28/252001 DD/ 00 TD/TT: 07/28/252000 Stump Shooter: [facility] External Provider IMG CT PROCEDURES Final Result * (ABNORMAL) CBC auto differential (07/28/2025 5:01 PM EDT) Only the most recent of3 resultswithin the time period is included. White Blood Count 7.2 4.8 - 10.8 X10*3/uL [facility] Red Blood Count 3.71(L) 4.20 - 5.50 X10*6/uL [facility] Hemoglobin 10.6(L) 12.0 - 16.0 g/dl [facility] Hematocrit 31.4(L) 37.0 - 47.0 % [facility] Mean Corpuscular Volume 84.6 80.0 - 98.0 fL [facility] Mean Corpuscular Hemoglobin 28.6 27.0 - 33.0 pg [facility] Mean Corpuscular HGB Conc 33.8 31.0 - 35.0 g/dl [facility] Red Cell Distribution Width 14.0 11.0 - 16.0 % [facility] Platelet Count 245 160 - 400 X10*3/uL [facility] Mean Platelet Volume 8.8(L) 9.4 - 12.3 fL [facility] Neutrophils Percent Auto 57.8 45 - 73 % [facility] Imm Gran Pct Auto 0.3 0.0 - 0.4 % [facility] Lymphocytes Percent Auto 27.2 20 - 40 % [facility] Monocytes Percent Auto 12.5(H) 2 - 11 % [facility] Eosinophils Percent Auto 1.8 0 - 4 % [facility] Basophils Percent Auto 0.4 0 - 2 % [facility] NRBC Pct Auto 0.0 0.0 - 0.2 /100WBC [facility] Neutrophils Absolute Auto 4.2 2.0 - 8.3 x10*3/uL [facility] Imm Gran Abs Auto 0.02 0.00 - 0.03 X10*3/uL [facility] Lymphocytes Absolute Auto 2.0 1.2 - 4.9 X10*3/uL [facility] Monocytes Absolute Auto 0.9 0.1 - 1.2 X10*3/uL [facility] Eosinophils Absolute Auto 0.1 0.0 - 0.4 X10*3/uL [facility] Basophils Absolute Auto 0.0 0.0 - 0.2 X10*3/uL [facility] NRBC Abs Auto 0.000 0.0 - 0.012 X10*3/uL [facility] 07/28/2025 5:01 PM EDT 07/28/2025 5:05 PM EDT Generic External Data Provider LAB BLOOD ORDERAB LES Final Result Performing Organization Address City/[facility]/ZIP Co de Phone Number [facility] [address] [place] [phone] * Partial Thromboplastin Time, Activated (APTT) (07/28/2025 5:01 PM EDT) Partial Thromboplastin Time 31.4 26.7 - 34.1 SEC [facility] 07/28/2025 5:01 PM EDT 07/28/2025 5:05 PM EDT Generic External Data Provider LAB BLOOD ORDERAB LES Final Result Performing Organization Address [facility]/ZIP Co de Phone Number [facility] [address] [place] [phone] * (ABNORMAL) Prothrombin Time-INR (07/28/2025 5:01 PM EDT) Prothrombin Time 14.3(H) 10.9 - 12.4 SEC [facility] INTERNATIONAL NORM RATIO 1.2(H) 0.9 - 1.1 [facility] Comment:INTERNATIONAL NORMAL IZED RATIO (INR) [...] ORDERAB LES Final Result Performing Organization Address City/[facility]/ZIP Co de Phone Number [facility] [address] [place] [phone] * Lipase (07/28/2025 5:01 PM EDT) Pathologist [facility] Lipase 31 8 - 78 U/L [facility] 07/28/2025 5:01 PM EDT 07/28/2025 5:05 PM EDT Generic External Data Provider LAB BLOOD ORDERAB LES Final Result Performing Organization Address [facility] Co de Phone Number [facility] [address] [place] [phone] * (ABNORMAL) Comprehensive Metabolic Panel (07/28/2025 5:01 PM EDT) Only the most recent of2 resultswithin the time period is included. Sodium 140 135 - 145 mmol/L [facility] Potassium 4.1 3.3 - 5.1 mmol/L [facility] Chloride 104 96 - 108 mmol/L [facility] Carbon Dioxide 30(H) 22 - 29 mmol/L [facility] Anion Gap 10(L) 12 - 20 [facility] Urea Nitrogen (BUN) 24(H) 9 - 16 mg/dL [facility] Creatinine, Serum 1.03 0.5 - 1.4 mg/dL [facility] Creatinine Clr Calc Pharmacy 50.1 [facility] Comment:Provided height and weight: 172.72 cm,89.5 kg.eGFR (calculated from the MDRD study equation) and eCrCl(calculated from the Cockcroft-Gault equation) are based ondifferent parameters and may not yield comparable results.If eCrCl result is absurd, please check patient'sheight/weight. Estimated Glomerular Filt Rate 51 [facility] Comment:Chronic Kidney Disea se: Estimated GFR < 60 mL/min/1.16r5Grderp Kidney Disease: Estimated GFR < 15 mL/min/1.73m2 Glucose 146(H) 60 - 115 mg/dL [facility] Calcium 8.4 8.4 - 10.2 mg/dL [facility] Bilirubin, Total 0.2 0.0 - 1.0 mg/dL [facility] Aspartate Amino Transferase 34(H) 5 - 31 U/L [facility] Alanine Aminotransferase 23 0 - 31 U/L [facility] Total Protein 7.3 6.5 - 8.0 g/dL [facility] Albumin Level 4.0 3.5 - 5.0 g/dL [facility] Alkaline Phosphatase 72 39 - 117 U/L [facility] 07/28/2025 5:01 PM EDT 07/28/2025 5:05 PM EDT us Generic External Data Provider LAB BLOOD ORDERAB LES Final Result [facility] [address] [place] [phone] * POCT HGB A1C (01/10/2025 11:02 [...] LDL-C. Jack SS et al. JITENDRA. 2013;310(19): 9162-6136 (http://education.OpenSpark.Kohort/faq/CIW665) Non-HDL Cholesterol 88 <130 mg/dL (calc) CONVERTED [...] Most Recently Relevant to Health Maintenance Insurance [id number] CARE [facility] OPTIONS (HMO D-SNP) Care Teams Global Cto Relationship Specialty Start Date End Date Name, MD Nitin [address] [place] [address] PCP - General Family Medicine 08/26/17 [facility] 09/01/24
--- OUTSIDE RECORDS SUMMARY | 2025-08-22 06:20 | XMS_ITS | Encounter Summary ---
Author Organization [employer] Address [address] [facility] 7[address] [place] [address] Care Team Providers Care Nutrition Manager Name Role Phone Name, Nitin PIKE Primary Care Provider [phone] Reason for Visit * Reason Onset Date Comments Results 08/29/2023 Encounter Details Date Type Department Care Team ([facility] st Contact Info) Description 08/29/2023 Telephone [facility] MEDICINE [address] [place], [place] [phone] Name, MD Nitni [address] [place] [address] Results Social History Tobacco Use Types Packs/Day [...] 09/01/2023 11:51 AM EDT Pt evaluated in [facility] today and is scheduled with pcp 09/03/23. * Telephone Encounter - Janette Huitron - 08/29/2023 4:06 PM EDT Tc from pt requesting a call in regards to urine results. Please contact pt at [phone] (Brazilian) documented in this encounter Plan of Treatment Upcoming Encounters Date Type Department Care Team (Late st Contact Info) Description 11/07/2025 10:00 AM EST Office Visit [facility] MEDICINE [address] [place] [address] Name, MD Nitin [address] [place] [address] documented as of this encounter Visit Diagnoses Not on filedocumented in this encounter Additional Health Concerns Assessment Noted Time PHQ-9 Depression Total Score: 12 023 9:37 AM EDT documented as of this encounter Care Teams Nutrition Manager Relationship Specialty Start Date End Date Name, MD Nitin [address] [place] [address] PCP - General Family Medicine 08/26/17 [facility] 09/01/24 documented as of this encounter
--- OUTSIDE RECORDS SUMMARY | 2025-08-22 06:20 | XMS_ITS | Encounter Summary ---
Author Organization [employer] Address [address] [facility] [address] [place] [address] Care Team Providers Care Progress Clerk Name Role Phone Name, Nitin PIKE Primary Care Provider [phone] Reason for Visit * Reason Onset Date Comments Med Refill 11/08/2024 Encounter Details Date Type Department Care Team ([facility] st Contact Info) Description 11/08/2024 Telephone [facility] MEDICINE [address] [place], [place] [phone] Name, MD Nitin 230 [place] [address] Med Refill Social History Tobacco Use Types [...] 5 MG tablet To be sent to: [facility] - [place], [place] - [address] [facility] documented in this encounter Plan of Treatment Upcoming Encounters Date Type Department Care Team ([facility] st Contact Info) Description 11/07/2025 10:00 AM EST Office Visit [facility] MEDICINE [address] [place] [address] Name, MD Nitin [address] [place] [address] documented as of this encounter Visit Diagnoses Not on filedocumented in this encounter Additional Health Concerns Assessment Noted Time PHQ-9 Depression Total Score: 6 02/13/20 24 9:14 AM EDT documented as of this encounter Care Teams Progress Clerk Relationship Specialty Start Date End Date Name, MD Nitin [address] [place] [address] PCP - General Family Medicine 08/26/17 [facility] 09/01/24 documented as of this encounter
--- OUTSIDE RECORDS SUMMARY | 2025-08-22 06:20 | XMS_ITS | Encounter Summary ---
Author Organization [employer] Address 75 [facility] 7[address] [place] [address] Care Team Providers Care Credit Clerk Name Role Phone Name, Nitin PIKE Primary Care Provider [phone] Reason for Visit * Reason Onset Date Comments Hospital Follow-up 10/20/2024 Encounter Details Date Type Department Care Team ([facility] Contact Info) Description 10/20/2024 Telephone [facility] MEDICINE [address] [place], [place] [phone] Name, MD Nitin 230 [place] [address] Hospital Follow-up Social History Tobacco Use Types [...] from pt requesting a HDF appt. Hospital: [facility] Date of admission: 10/17 Discharge date: 10/19 Diagnosed: High Blood Pressure and Fever Contact pt at [phone] *Send message to [facility] Care Coordinators documented in this encounter Plan of Treatment Upcoming Encounters Date Type Department Care Team (Late st Contact Info) Description 11/07/2025 10:00 AM EST Office Visit [facility] MEDICINE [address] [place] [address] Name, MD Nitin [address] [place] [address] documented as of this encounter Visit Diagnoses Not on filedocumented in this encounter Additional Health Concerns Assessment Noted Time PHQ-9 Depression Total Score: 6 02/13/20 24 9:14 AM EDT documented as of this encounter Care Teams Credit Clerk Relationship Specialty Start Date End Date Name, MD Nitin 230 [place] [address] PCP - General Family Medicine 08/26/17 [facility] 09/01/24 documented as of this encounter
--- OUTSIDE RECORDS SUMMARY | 2025-08-22 06:20 | XMS_ITS | Encounter Summary ---
Author Organization [employer] Address 75 [facility] [address] [place] [address] Care Team Providers Care Fermenter Champagne Name Role Phone Name, Nitin PIKE Primary Care Provider [phone] Reason for Visit * Reason Comments Med Refill Encounter Details Date Type Department Care Team (Late st Contact Info) Description 08/17/2025 Refill [facility] MEDICINE 230 [place], [place] [phone] Miryam Riley NP 230 [place], [place] [phone] Hypertension, unspecified type Social History Tobacco Use [...] Description 11/07/2025 10:00 AM EST Office Visit [facility] MEDICINE [address] [place] [address] NameNitin MD 230 [place] [address] documented as of this encounter Visit Diagnoses Diagnosis Hypertension, unspecified type documented in this encounter Additional Health Concerns Assessment Noted Time PHQ-9 Depression Total Score: 3 04/29/20 25 9:41 AM EDT documented as of this encounter Care Teams Fermenter Champagne Relationship Specialty Start Date End Date Name, MD Nitin [address] [place] [address] PCP - General Family Medicine 08/26/17 [facility] 09/01/24 documented as of this encounter
--- OUTSIDE RECORDS SUMMARY | 2025-08-22 06:20 | XMS_ITS | Encounter Summary ---
Author Organization [employer] Address 75 [facility] [address] [place] [address] Care Team Providers Care Receiving Clerk Name Role Phone Name, Nitin PIKE Primary Care Provider [phone] Reason for Visit * Reason Onset Date Comments ER Follow-up 05/31/2024 Encounter Details Date Type Department Care Team ([facility] Contact Info) Description 05/31/2024 Telephone [facility] MEDICINE 230 [place], [place] [phone] Name, MD Nitin 230 [place] [address] ER Follow-up Social History Tobacco Use Types [...] 05/31/2024 1:36 PM EDT T/C to Pat ([facility]) [phone] for below message, no answer. LVM to call back on [phone]. * Telephone Encounter - Melany Santos RN - 05/31/2024 1:32 PM EDT DAVID T/C to pt. Through [employer] id - [id number] for below message, pt. Had recent fall and ED visit at [facility]. RN will request GRACE piedra from [facility]. Pt. Is doing good, states I am tired andsleeping. Pt. Dose not has any question or concern right now. Pt. Already has HDF apt. Schedule on 06/10/2024. Pt. Advised to give call to [facility] if any questions or concerns. Pt. Verbally agreed and understood. Please review and advise if needed. * Telephone Encounter - Adithya Solorzano - 05/31/2024 12:50 PM EDT Patient calling to report ED visit on : Date: 05/26 Hospital: [facility] Seen for: Fall, Back Pain [...] EST Office Visit [facility] MEDICINE [address] [place] [address] Name, MD Nitin [address] [place] [address] documented as of this encounter Visit Diagnoses Not on filedocumented in this encounter Additional Health Concerns Assessment Noted Time PHQ-9 Depression Total Score: 6 02/13/20 24 9:14 AM EDT documented as of this encounter Care Teams Receiving Clerk Relationship Specialty Start Date End Date Name, MD Nitin [address] [place] [address] PCP - General Family Medicine 08/26/17 [facility] 09/01/24 documented as of this encounter
--- OUTSIDE RECORDS SUMMARY | 2025-08-22 06:21 | XMS_ITS | Encounter Summary ---
Author Organization [employer] Address 75 [facility] 7t [place] [address] Care Team Providers Care Logistics Engineering Manager Name Role Phone Name, Nitin PIKE Primary Care Provider [phone] Reason for Visit * Reason Onset Date Comments Order(s) 12/09/2023 Encounter Details Date Type Department Care Team ([facility] Contact Info) Description 12/09/2023 Telephone [facility] MEDICINE 230 [place], [place] [phone] Name, MD Nitin 230 [place], [place] [phone] Order(s) Social History Tobacco Use Types Packs/Day [...] orders. If any questions please contact Noreen [phone]. documented in this encounter Plan of Treatment Upcoming Encounters Date Type Department Care Team (Late st Contact Info) Description 11/07/2025 10:00 AM EST Office Visit [facility] MEDICINE [address] [place] [address] Name, MD Nitin 230 [place] [address] documented as of this encounter Visit Diagnoses Not on filedocumented in this encounter Additional Health Concerns Assessment Noted Time PHQ-9 Depression Total Score: 12 023 9:37 AM EDT documented as of this encounter Care Teams Logistics Engineering Manager Relationship Specialty Start Date End Date Name, MD Nitin [address] [place] [address] PCP - General Family Medicine 08/26/17 [facility] 09/01/24 documented as of this encounter
--- OUTSIDE RECORDS SUMMARY | 2025-08-22 06:21 | XMS_ITS | Encounter Summary ---
Author Organization [employer] Address [address] [facility] 7[address] [place] [address] Care Team Providers Care University Teacher Name Role Phone Name, Nitin PIKE Primary Care Provider [phone] Encounter Details Date Type Department Care Team ([facility] Contact Info) Description 01/06/2023 Orders Only [facility] MED & PEDS [address] [place], [place] [phone] Lisha Kelly LPN Social History Tobacco Use [...] 10:00 AM EST Office Visit [facility] MEDICINE 230 [place] [address] NameNitin MD 230 [place] [address] documented as of this encounter Visit Diagnoses Not on filedocumented in this encounter Care Teams University Teacher Relationship Specialty Start Date End Date NameNitin MD 230 [place] [address] PCP - General Family Medicine 08/26/17 [facility] 09/01/24 documented as of this encounter
--- OUTSIDE RECORDS SUMMARY | 2025-08-22 06:21 | XMS_ITS | Encounter Summary ---
Author Organization [employer] Address 75 [facility] 7[address] [place] [address] Care Team Providers Care Laborer Steel Handling Name Role Phone Name, Nitin PIKE Primary Care Provider [phone] Encounter Details Date Type Department Care Team ([facility] Contact Info) Description 08/08/2023 Telephone [facility] MEDICINE [address] [place] [address] [phone] Name, MD Nitin [address] [place] [address] [phone] Social History Tobacco Use Types Packs/Day Years [...] 10:00 AM EST Office Visit [facility] MEDICINE [address] [place] [address] [phone] Name, MD Nitin [address] [place] [address] [phone] documented as of this encounter Visit Diagnoses Not on filedocumented in this encounter Additional Health Concerns Assessment Noted Time PHQ-9 Depression Total Score: 12 023 9:37 AM EDT documented as of this encounter Care Teams Laborer Steel Handling Relationship Specialty Start Date End Date Name, MD Nitin 230 [place] [address] PCP - General Family Medicine 08/26/17 [facility] 09/01/24 documented as of this encounter
--- OUTSIDE RECORDS SUMMARY | 2025-08-22 06:21 | XMS_ITS | Encounter Summary ---
Author Organization [employer] Address [address] [facility] 7[address] [place] [address] Care Team Providers Care Taxi Proprietor Name Role Phone Name, Nitin PIKE Primary Care Provider [phone] Reason for Visit * Reason Onset Date Comments triage 12/18/2022 Encounter Details Date Type Department Care Team ([facility] st Contact Info) Description 12/18/2022 Telephone [facility] MEDICINE 230 [place], [place] [phone] Name, MD Nitin 230 [place] [address] triage Social History Tobacco Use Types Packs/Day [...] 12/18/2022 2:35 PM EST Called pt. Via [employer] architectural sales consultant [phone] Eduardo. Pt. States that she has a [...] phone. Please reach out to pt. With Sinhala speaking another time to see what her [...] Description 11/07/2025 10:00 AM EST Office Visit [facility] MEDICINE 230 [place] [address] Name, MD Nitin 230 [place] [address] documented as of this encounter Visit Diagnoses Not on filedocumented in this encounter Care Teams Taxi Proprietor Relationship Specialty Start Date End Date Name, MD Nitin 230 [place] [address] PCP - General Family Medicine 08/26/17 [facility] 09/01/24 documented as of this encounter
--- OUTSIDE RECORDS SUMMARY | 2025-08-22 06:21 | XMS_ITS | Encounter Summary ---
Author Organization [employer] Address 75 [facility] 7t [place] [address] Care Team Providers Care Environmental Health And Safety Leader Name Role Phone Name, Nitin PIKE Primary Care Provider [phone] Reason for Visit * Reason Onset Date Comments Verbal Orders 12/15/2023 Encounter Details Date Type Department Care Team ([facility] st Contact Info) Description 12/15/2023 Telephone [facility] MEDICINE [address] [place], [place] [phone] Name, MD Nitin 230 [place] [address] Verbal Orders Social History Tobacco Use Types [...] 12:03 PM EST Tc from Josseline with [employer] requesting verbal order to see pt 2 times a week for 4 weeks for Occupational Therapy, please contact Joss[facility] at [phone] documented in this encounter Plan of Treatment Upcoming Encounters Date Type Department Care Team (Late st Contact Info) Description 11/07/2025 10:00 AM EST Office Visit [facility] MEDICINE [address] [place] [address] Name, MD Nitin 230 [place] [address] documented as of this encounter Visit Diagnoses Not on filedocumented in this encounter Additional Health Concerns Assessment Noted Time PHQ-9 Depression Total Score: 12 023 9:37 AM EDT documented as of this encounter Care Teams Environmental Health And Safety Leader Relationship Specialty Start Date End Date Name, MD Nitin 230 [place] [address] PCP - General Family Medicine 08/26/17 [facility] 09/01/24 documented as of this encounter
--- OUTSIDE RECORDS SUMMARY | 2025-08-22 06:21 | XMS_ITS | Encounter Summary ---
Author Organization [employer] Address 75 [facility] 7t [place] [address] Care Team Providers Care Infant Lead Teacher Name Role Phone Name, Nitin PIKE Primary Care Provider Reason for Visit * Reason Onset Date Comments FYI 01/21/2024 ER Follow-up 01/21/2024 Encounter Details Date Type Department Care Team ([facility] st Contact Info) Description 01/21/[address] [facility] MEDICINE [address] [place], [place] [phone] Name, MD Nitin 230 [place] [address] FYI; ER Follow-up Social History Tobacco Use [...] encounter Miscellaneous Notes * Telephone Encounter - oFzia Jacob RN - 01/21/2024 1:54 PM EDT Message from [facility] ED noted. [facility] note sent to medical records. PCP does not rx Trazodone. Pt to f/u with psych prescriber. Pt is scheduled for f/u with pcp 02/13/24. * Telephone Encounter - Janette Huitron - 01/21/2024 9:45 AM EDT Tc from nata with [facility] ED calling in regards to pt. States pt was seen today for anxiety and is requesting trazodone. Will discharge pt with no medication change. Would also like to advise provider, pt was seen at [facility] on 01/17 for anxiety/insomnia as well documented in this encounter Plan of Treatment Upcoming Encounters Date Type Department Care Team (Late st Contact Info) Description 11/07/2025 10:00 AM EST Office Visit [facility] MEDICINE [address] [place] [address] Name, MD Nitin 230 [place] [address] documented as of this encounter Visit Diagnoses Not on filedocumented in this encounter Additional Health Concerns Assessment Noted Time PHQ-9 Depression Total Score: 12 023 9:37 AM EDT documented as of this encounter Care Teams Infant Lead Teacher Relationship Specialty Start Date End Date Name, MD Nitin [address] [place] [address] PCP - General Family Medicine 08/26/17 [facility] 09/01/24 documented as of this encounter
--- OUTSIDE RECORDS SUMMARY | 2025-08-22 06:21 | XMS_ITS | Encounter Summary ---
Author Organization [employer] Address 75 [facility] 7t [place] [address] Care Team Providers Care Cryptographic Technician Name Role Phone Name, Nitin PIKE Primary Care Provider [phone] Reason for Visit * Reason Comments Med Refill Encounter Details Date Type Department Care Team (Late st Contact Info) Description 01/09/2025 Refill [facility] 230 [place], [place] [phone] Name, MD Nitin 230 [place] [address] Hypertension, unspecified type Social History Tobacco Use [...] EST Office Visit [facility] MEDICINE [address] [place] [address] NameNitin MD [address] [place] [address] documented as of this encounter Visit Diagnoses Diagnosis Hypertension, unspecified type documented in this encounter Additional Health Concerns Assessment Noted Time PHQ-9 Depression Total Score: 6 02/13/20 9:14 AM EDT documented as of this encounter Care Teams Cryptographic Technician Relationship Specialty Start Date End Date NameNitin MD [address] [place] [address] PCP - General Family Medicine 08/26/17 [facility] 09/01/24 documented as of this encounter
--- OUTSIDE RECORDS SUMMARY | 2025-08-22 06:21 | XMS_ITS | Encounter Summary ---
Author Organization [employer] Address 75 [facility] 7[address] [place] [address] Care Team Providers Care Personnel Clerk Name Role Phone Name, Nitin PIKE Primary Care Provider [phone] Encounter Details Date Type Department Care Team ([facility] Contact Info) Description 12/17/2022 Orders Only [facility] CHC MED & PEDS [address] [place], [place] [phone] Lisha Kelly LPN Social History Tobacco Use [...] 10:00 AM EST Office Visit [facility] MEDICINE 230 [place] [address] Nitin Echevarria MD [address] [place] [address] documented as of this encounter Visit Diagnoses Not on filedocumented in this encounter Care Teams Personnel Clerk Relationship Specialty Start Date End Date NameNitin MD 230 [place] [address] PCP - General Family Medicine 08/26/17 [facility] 09/01/24 documented as of this encounter
--- OUTSIDE RECORDS SUMMARY | 2025-08-22 06:21 | XMS_ITS | Encounter Summary ---
Author Organization [employer] Address 75 [facility] 7[address] [place] [address] Care Team Providers Care Program Dir Name Role Phone Name, Nitni PIKE Primary Care Provider [phone] Reason for Visit * Reason Comments Med Refill Encounter Details Date Type Department Care Team (Late Contact Info) Description 03/02/2023 Refill [facility] MEDICINE [address] [place] [address] Karely Patiño MD [address] [place] [address] [phone] Social History Tobacco Use Types Packs/Day Years [...] Description 11/07/2025 10:00 AM EST Office Visit [facility] MEDICINE [address] [place] [address] Name, MD Nitin [address] [place] [address] documented as of this encounter Visit Diagnoses Not on filedocumented in this encounter Care Teams Program Dir Relationship Specialty Start Date End Date Name, MD Nitin 230 [place] [address] PCP - General Family Medicine 08/26/17 [facility] 09/01/24 documented as of this encounter
--- OUTSIDE RECORDS SUMMARY | 2025-08-22 06:21 | XMS_ITS | Encounter Summary ---
Author Organization [employer] Address 75 [facility] 7[address] [place] [address] Care Team Providers Care School Guard Name Role Phone Name, Nitin PIKE Primary Care Provider [phone] Reason for Visit * Reason Comments Med Refill Encounter Details Date Type Department Care Team (Late st Contact Info) Description 08/16/2024 Refill [facility] CHC MED & PEDS [address] [place], [place] [phone] Name, MD Nitin 230 [place] [address] Heartburn Social History Tobacco Use Types Packs/Day [...] 10:00 AM EST Office Visit [facility] MEDICINE [address] [place] [address] NameNitin MD [address] [place] [address] documented as of this encounter Visit Diagnoses Diagnosis Heartburn documented in this encounter Additional Health Concerns Assessment Noted Time PHQ-9 Depression Total Score: 6 02/13/20 24 9:14 AM EDT documented as of this encounter Care Teams School Guard Relationship Specialty Start Date End Date NameNitin MD [address] [place] [address] PCP - General Family Medicine 08/26/17 [facility] 09/01/24 documented as of this encounter
--- OUTSIDE RECORDS SUMMARY | 2025-08-22 06:21 | XMS_ITS | Encounter Summary ---
Author Organization [employer] Address 75 [facility] 7[address] [place] [address] Care Team Providers Care Regulatory Technician Name Role Phone Name, Nitin PIKE Primary Care Provider [phone] Encounter Details Date Type Department Care Team (Late st Contact Info) Description 11/06/2022 Orders Only [facility] MED & PEDS [address] [place], [place] [phone] Lisha Kelly LPN Social History Tobacco Use [...] 10:00 AM EST Office Visit [facility] MEDICINE 230 [place] [address] NameNitin MD 230 [place] [address] documented as of this encounter Visit Diagnoses Not on filedocumented in this encounter Care Teams Regulatory Technician Relationship Specialty Start Date End Date Nitin Echevarria MD 230 [place] [address] PCP - General Family Medicine 08/26/17 [facility] 09/01/24 documented as of this encounter
--- OUTSIDE RECORDS SUMMARY | 2025-08-22 06:21 | XMS_ITS | Encounter Summary ---
Author Organization [employer] Address [address] [place] [address] Care Team Providers Care Automotive Service Assistant Name Role Phone Name, Nitin PIKE Primary Care Provider [phone] Reason for Visit * Reason Onset Date Comments Durable Medical Equipment 12/09/2023 Encounter Details Date Type Department Care Team ([facility] st Contact Info) Description 12/09/2023 Telephone [facility] [address] [place], [place] [phone] Name, MD Nitin [address] [place], [place] [phone] Durable Medical Equipment Social History Tobacco Use [...] 10:11 AM EST DME rx faxed to [facility] as requested. RN will consult with S nurse and provide referral. * Telephone Encounter - Fozia Jacob RN - 12/09/2023 4:58 PM EST Call returned to [facility] at [facility] [phone] ext. [phone]. [facility] states that [facility] attempted to provide PT at home but pt refused. [facility] pt is requesting outpatient PT. [facility] pt is seeing a counselor more regularly and has agreed to VNA referral. Reports pt has had 3 falls in the past 2 months. [facility] states [facility] no longer has visiting nurses. [facility] recommends [employer] or [facility] [place][note 2] for VNA referral. [facility] also requesting DME rx for rollator walker and a straight cane. Requests that DME rx be faxed to [phone]. Advised requests will be sent to pcp. * Telephone Encounter - Adithya Solorzano - 12/09/2023 4:25 PM EST Tc from [facility] requesting DME: Rollator walker . documented in this encounter Plan of Treatment Upcoming Encounters Date Type Department Care Team (Late st Contact Info) Description 11/07/2025 10:00 AM EST Office Visit [facility] [address] [place] [address] Name, MD Nitin [address] [place] [address] documented as of this encounter Visit Diagnoses Not on filedocumented in this encounter Additional Health Concerns Assessment Noted Time PHQ-9 Depression Total Score: 12 023 9:37 AM EDT documented as of this encounter Care Teams Automotive Service Assistant Relationship Specialty Start Date End Date Name, MD [facility]itin [facility] [place] [address] PCP - General Family Medicine 08/26/17 [facility] 09/01/24 documented as of this encounter
--- OUTSIDE RECORDS SUMMARY | 2025-08-22 06:21 | XMS_ITS | Encounter Summary ---
Author Organization [email or web address] Address [address] [place] [address] Care Team Providers Care Physician'S Assistant Name Role Phone Name, Nitin PIKE Primary Care Provider [phone] Reason for Visit * Reason Onset Date Comments Verbal Orders 01/02/2024 Encounter Details Date Type Department Care Team ([facility] st Contact Info) Description 01/02/2024 Telephone [facility] [address] [place], [place] [phone] Name, MD Nitin [address] [place] [address] Verbal Orders Social History Tobacco Use Types [...] No answer. LVM to call back on [phone]. * Telephone Encounter - Melany Santos RN - 01/06/2024 10:25 AM EST Please review and advise for below request. * Telephone Encounter - Deana Bazzi - 01/02/2024 3:44 PM EST Tc from [facility] with S requesting verbal orders for discharge pt from Occupational Therapy, due to pt refuses services, please contact [facility] at [phone]. documented in this encounter Plan of Treatment Upcoming Encounters Date Type Department Care Team (Late st Contact Info) Description 11/07/2025 10:00 AM EST Office Visit [facility]INE [address] [place] [id number] Name, MD Nitin [address] [place] [address] documented as of this encounter Visit Diagnoses Not on filedocumented in this encounter Additional Health Concerns Assessment Noted Time PHQ-9 Depression Total Score: 12 023 9:37 AM EDT documented as of this encounter Care Teams Physician'S Assistant Relationship Specialty Start Date End Date Name, MD Nitin [address] [place] [id number] PCP - General Family Medicine 08/26/17 [facility] 09/01/24 documented as of this encounter
--- OUTSIDE RECORDS SUMMARY | 2025-08-22 06:21 | XMS_ITS | Encounter Summary ---
Author Organization [employer] Address [address] [place] [address] Care Team Providers Care Die Casting Supervisor Name Role Phone Name, Nitin PIKE Primary Care Provider [phone] Reason for Visit * Reason Onset Date Comments Call Back Request 03/14/2025 Encounter Details Date Type Department Care Team ([facility] st Contact Info) Description 03/14/2025 Telephone [facility] [address] [place], [place] [phone] Name, MD Nitin [address] [place] [address] Call Back Request Social History Tobacco Use [...] Description 11/07/2025 10:00 AM EST Office Visit [facility] [address] [place] [address] Name, MD Nitin [address] [place] [address] documented as of this encounter Visit Diagnoses Not on filedocumented in this encounter Additional Health Concerns Assessment Noted Time PHQ-9 Depression Total Score: 6 02/13/20 9:14 AM EDT documented as of this encounter Care Teams Die Casting Supervisor Relationship Specialty Start Date End Date Name, MD Nitin [address] [place] [address] PCP - General Family Medicine 08/26/17 [facility] 09/01/24 documented as of this encounter
--- NOTE | 2025-08-22 07:03 | ED.LOWEXIN ---
HPI - Extremity Injury (Lower) General Chief Complaint: Extremity Injury, Lower Stated Complaint: L Leg Pain Time Seen by Provider: 08/22/25 07:02 Source: patient and per diem interpreter (guatemalan) Mode of arrival: ambulatory Limitations: language barrier (guatemalan) History of Present Illness ED Provider: SARAI LAYTON PA-C HPI Narrative: 79 year old female with pmhx significant for HTN, HLD, anxiety, OA, dementia, SVT, CKD, PE previously on Eliquis presents to the ED today for evaluation of acute on chronic atraumatic left knee pain x4 days. Patient reports history of similar. Was told she has arthritis in her left knee. She states she has a appropriate follow up with her PCP for physical therapy. She states that a single dose of morphine previously helped her knee pain. She has been taking tylenol at home without relief. Patient has multiple recent ED visits. She was seen at our facility yesterday for back pain and discharged home with a prescription for tramadol. States her pharmacy is closed and she has not been able to trial this for her pain. Denies any truama/blunt injury. Denies LE swelling, erythema. No recent travel/long car rides. Denies chest pain, palpitations, sob, hemoptysis. Related Data Home Medications ?Medication ?Instructions ?Recorded ?Confirmed omeprazole 20 mg tablet,delayed 20 mg PO DAILY@0630 08/09/20 08/22/25 release aspirin 81 mg tablet,delayed 81 mg PO QAM 01/28/24 08/22/25 release bisacodyl 5 mg tablet,delayed 5 mg PO DAILY PRN constipation 01/28/24 08/22/25 release ferrous sulfate 325 mg (65 mg 325 mg PO DAILY 01/28/24 08/22/25 iron) tablet (FeroSul) melatonin 10 mg tablet,extended 10 mg PO BEDTIME PRN Insomnia 01/28/24 08/22/25 release multivitamin 1 tab PO QAM 01/28/24 08/22/25 rosuvastatin 20 mg tablet 20 mg PO BEDTIME 01/28/24 08/22/25 trazodone 50 mg tablet 50 mg PO BEDTIME 01/28/24 08/22/25 amlodipine 10 mg tablet 10 mg PO DAILY 02/09/24 08/22/25 acetaminophen 500 mg tablet 500 mg PO Q8H PRN pain 08/09/24 08/22/25 cholecalciferol (vitamin D3) 25 25 mcg PO DAILY 08/20/24 08/22/25 mcg (1,000 unit) tablet sertraline 100 mg tablet 100 mg PO DAILY 03/16/25 08/22/25 apixaban 5 mg tablet 5 mg PO BID 08/22/25 08/22/25 clonazepam 0.5 mg tablet 0.5 mg PO TID 08/22/25 08/22/25 fluticasone propionate 50 2 spray intranasal DAILY PRN 08/22/25 08/22/25 mcg/actuation nasal Allergic Symptoms spray,suspension (Flonase Allergy Relief) hydroxyzine HCl 25 mg tablet 10 mg PO DAILY PRN anxiety 08/22/25 08/22/25 ketotifen fumarate 0.025 % (0.035 1 drp ophthalmic (eye) BID PRN 08/22/25 08/22/25 %) eye drops allergies mirtazapine 45 mg tablet 45 mg PO BEDTIME 08/22/25 08/22/25 valsartan 160 mg tablet 160 mg PO QPM 08/22/25 08/22/25 Previous Rx's ?Medication ?Instructions ?Recorded metoprolol succinate 50 mg 50 mg PO DAILY #90 tabs 09/28/20 tablet,extended release 24 hr docusate sodium 100 mg capsule 200 mg (2 x 100 mg) PO BID #20 caps 02/24/25 (Colace) ibuprofen 200 mg tablet 200 mg PO Q6H PRN pain #20 tabs 07/24/25 meclizine 12.5 mg tablet 12.5 mg PO TID PRN dizziness or 07/26/25 vertigo #30 tabs Allergies Allergy/AdvReac Type Severity Reaction Status Date / Time penicillin G (Penicillin G) Allergy Severe ITCHY/RASH Verified 08/22/25 06:05 Sulfa (Sulfonamide Allergy Severe ITCHY,RASH, Verified 08/22/25 06:05 Antibiotics) (Sulfa rash (Sulfonamides)) trimethoprim (From Bactrim) Allergy Severe HIVES Verified 08/22/25 06:05 Penicillins Allergy Intermediate Hives Verified 08/22/25 06:05 sulfamethoxazole (From Allergy Mild Hives Verified 08/22/25 06:05 Bactrim) Review of Systems Review of Systems: Yes all other systems are reviewed and are negative PMFSH Past Medical History Attestation statement: The following information was validated with the patient. 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 Skin: Warm, dry, intact. No rashes or lesions. Head: Normocephalic, atraumatic. EENT: Hearing is intact b/l. Conjunctiva clear. Sclera is anicteric. PERRLA. EOM intact. Moist mucous membranes.? Neck: Supple without LAD Cardiac: Chest wall symmetric. RRR Lungs: Normal respiratory effort without accessory muscle use. CTA bilaterally Ext: +no noted deformity or erythema to left knee. mild swelling. No open wounds. can actively extend the left knee, pain with ative flexion. Diffusely tender to palpation without palpable deformity, crepitus, fluctuance, warmth. NV intact distally. no pitting edema. no calf tenderness. ambulating w/ slow but steady gait to the bathroom. Neuro: AOx3. Normal speech. Course Course Course Narrative: 858 -- X-ray of left knee shows ununited tibial apophyseal fracture with possible superimposed acute fracture, overlying prepatellar soft tissue swelling. No dislocation. No joint effusion. > spoke with on-call orthopedic Nino RUIZ. Recommending hinged knee brace versus immobilizer if patient can not handle hinged knee knee brace, with ortho follow-up. > patient medicated with morphine with good effect. > patient ambulates with walker/cane at baseline. Will have difficulty ambulating with knee immobilizer. Discussed results with patient. PT/case management consults placed. patient is a full code. attempted to contact patients HCP (daughter Jeanne Meadows at [phone]). no answer, LVM for call back. patient placed in physician observation at this time. Time: 8:30AM Date: 08/23/25 Provider: SARA Bartlett Physician observation ended at 8:30AM. Patient was seen by Physical therapy recommending home with services. No overnight events per nursing staff. Patient demanding to be discharged as soon as possible. Physician observation discontinued. Medications Administered Discontinued Medications Generic Name Dose Route Start Last Admin Trade Name Freq PRN Reason Stop Dose Admin Acetaminophen 975 mg 08/22/25 09:01 08/23/25 07:13 Acetaminophen 325 Mg Tablet PO 975 mg QID PRN Administration Pain, Moderate(Pain Scale 4-6) Amlodipine Besylate 10 mg 08/23/25 09:00 08/23/25 08:35 Amlodipine Besylate 10 Mg Tablet PO 10 mg DAILY DENISA Administration Protocol Apixaban 5 mg 08/22/25 21:00 08/23/25 08:39 Apixaban 5 Mg Tablet PO Not Given BID DENISA Aspirin 81 mg 08/22/25 09:00 08/23/25 08:39 Aspirin Enteric Coated 81 Mg Tablet. PO Not Given DAILY DENISA Clonazepam 0.5 mg 08/22/25 21:00 08/23/25 08:37 Clonazepam 0.5 Mg Tablet PO 0.5 mg TID DENISA Administration Docusate Sodium 200 mg 08/22/25 21:00 08/23/25 08:35 Docusate Sodium 100 Mg Capsule PO 200 mg BID DENISA Administration Ferrous Sulfate 324 mg 08/23/25 09:00 08/23/25 08:35 Ferrous Sulfate 324 Mg Tablet. PO 324 mg DAILY DENISA Administration Hydroxyzine HCl 10 mg 08/22/25 20:48 08/23/25 07:13 Hydroxyzine Hcl 10 Mg Tablet PO 10 mg DAILY PRN Administration Anxiety Metoprolol Succinate 50 mg 08/23/25 09:00 08/23/25 08:37 Metoprolol Succinate Er 50 Mg Tab.Er.24h PO 50 mg DAILY DENISA Administration Protocol Mirtazapine 45 mg 08/22/25 21:00 08/22/25 22:02 Mirtazapine 15 Mg Tablet PO 45 mg BEDTIME DENISA Administration Morphine Sulfate 15 mg 08/22/25 07:34 08/22/25 07:55 Morphine Sulfate Immed Release 15 Mg Tablet PO 08/22/25 07:35 15 mg ONCE ONE Administration Morphine Sulfate 15 mg 08/22/25 09:01 08/22/25 12:06 Morphine Sulfate Immed Release 15 Mg Tablet PO 15 mg QID PRN Administration Pain, Severe (Pain Scale 7-10) Multivitamins/Vitamin C 1 tab 08/23/25 09:00 08/23/25 08:38 Multivitamin Tablet PO 1 tab DAILY DENISA Administration Omeprazole 20 mg 08/23/25 06:30 08/23/25 05:59 Omeprazole 20 Mg Capsule.Dr PO 20 mg DAILY@0630 DENISA Administration Sertraline HCl 100 mg 08/23/25 09:00 08/23/25 08:37 Sertraline Hcl 100 Mg Tablet PO 100 mg DAILY DENISA Administration Trazodone HCl 50 mg 08/22/25 21:00 08/22/25 22:02 Trazodone Hcl 50 Mg Tablet PO 50 mg BEDTIME DENISA Administration Valsartan 160 mg 08/22/25 21:00 08/22/25 22:08 Valsartan 160 Mg Tablet PO 160 mg BEDTIME DENISA Administration Protocol Vitamin D 25 mcg 08/23/25 09:00 08/23/25 08:35 Cholecalciferol (Vitamin D3) 25 Mcg Tablet PO 25 mcg DAILY DENISA Administration Medical Decision Making Medical Decision Making MDM Narrative: 79 year old female with pmhx significant for HTN, HLD, anxiety, OA, dementia, SVT, CKD, PE previously on Eliquis presents to the ED today for evaluation of acute on chronic atraumatic left knee pain x4 days. Vital signs stable. Afebrile. She is well-appearing in no acute distress. on exam, no noted deformity, swelling, erythema to left knee. No open wounds. Full ROM intact to left knee with active and passive range of motion. Diffusely tender to palpation without palpable deformity, crepitus, fluctuance, warmth. NV intact distally. no pitting edema. no calf tenderness. ambulating w/ slow but steady gait to the bathroom. Differential diagnosis includes MSK sprain/strain, contusion, arthritis, bursitis, tendonitis, fracture. Presentation not consistent with gout, pseudogout. Unlikely DVT, neurovascular compromise, threat to limb, compartment syndrome. Plan for xrays, pain control, and re-evaluation. Differential Diagnosis Differential Diagnoses: The differential diagnosis associated with the presentation includes As above Admission/Observation Not indicated Consult Healthcare Provider Management of the patient was discussed with: Rural Carrier Associate (ortho - recommending knee immobilizer w/ ortho f/u outpatient) Independent Interpretation I performed an independent interpretation of an: Plain X-Ray Interpretation: XR left knee showing left tibial apophyseal fracture Radiology Impression Discussion of test interpretation with radiology: I have reviewed the radiologist's reading. Radiologist Impression: Procedure(s): XR knee LT 4V Accession Number(s): [id number] cc: [facility]; Sarai Layton [place]~ Reason for Exam: atraumatic knee pain CLINICAL HISTORY: atraumatic knee pain 4 view left knee Comparison: CR - XR KNEE LT 2V - 04/15/2025 02:38 AM EDT Findings: There is an ununited tibial apophyseal fracture with possible superimposed acute fracture. There is overlying prepatellar soft tissue swelling. No dislocations. No significant loss of joint space, osteophytes, or erosions. No joint effusion. No radiopaque foreign body. There is regional arterial calcification. IMPRESSION: 1. Tibial apophyseal fracture. This document has been electronically signed by: Francesco Lane MD on 08/22/2025 08:16:44 Independent Historian Clinical information obtained from an independent historian. History obtained from or confirmed by: EMS External Record Review External record reviewed: Inpatient record Prescription Management I considered prescription management with: Pain Medication Chronic Conditions Patient?s care impacted by: Other (OA) Social Determinants Patient?s care significantly limited by Social Determinants of Health including: Other Social Determinant of Health Procedures Orthopedic Splinting/Casting Injury #1: Side: left Lower Extremity Injury Location: knee Lower Extremity Immobilizer: knee immobilizer Critical Care Time Critical Care Time Critical Care Time: No Discharge Plan Discharge Clinical Impression: Closed tibial fracture Patient Disposition: Home, Self-Care Instructions: Leg Fracture (ED) Additional Instructions: You were seen in the emergency department in you were found to have a leg fracture. We wanted you to be evaluated by Physical therapy and case management to ensure that you have a safe disposition home. You adamantly refused, however they are recommending VNA services. You should follow-up with the early childhood specialist. Call to make an appointment. If any new or worsening symptoms occur including but not limited to worsening pain, severe chest pain, shortness of breath, please seek emergent care. Prescriptions: No Action metoprolol succinate 50 mg tablet extended release 24 hr 50 mg PO DAILY Qty: 90 2RF omeprazole 20 mg Tablet,Delayed Release (Dr/Ec) 20 mg PO DAILY@0630 meclizine 12.5 mg tablet 12.5 mg PO TID PRN (Reason: dizziness or vertigo) Qty: 30 0RF trazodone 50 mg tablet 50 mg PO BEDTIME ferrous sulfate [FeroSul] 325 mg (65 mg iron) tablet 325 mg PO DAILY bisacodyl 5 mg tablet,delayed release (DR/EC) 5 mg PO DAILY PRN (Reason: constipation) rosuvastatin 20 mg tablet 20 mg PO BEDTIME aspirin 81 mg tablet,delayed release (DR/EC) 81 mg PO QAM multivitamin Tablet 1 tab PO QAM melatonin 10 mg tablet extended release 10 mg PO BEDTIME PRN (Reason: Insomnia) cholecalciferol (vitamin D3) 25 mcg (1,000 unit) tablet 25 mcg PO DAILY acetaminophen 500 mg tablet 500 mg PO Q8H PRN (Reason: pain) docusate sodium [Colace] 100 mg capsule 200 mg PO BID Qty: 20 0RF ibuprofen 200 mg tablet 200 mg PO Q6H PRN (Reason: pain) Qty: 20 0RF ketotifen fumarate 0.025 % (0.035 %) drops 1 drp ophthalmic (eye) BID PRN (Reason: allergies) mirtazapine 45 mg tablet 45 mg PO BEDTIME clonazepam 0.5 mg tablet 0.5 mg PO TID hydroxyzine HCl 25 mg tablet 10 mg PO DAILY PRN (Reason: anxiety) fluticasone propionate [Flonase Allergy Relief] 50 mcg/actuation spray,suspension 2 spray intranasal DAILY PRN (Reason: Allergic Symptoms) Rx Instructions: administer into each nostril apixaban 5 mg tablet 5 mg PO BID valsartan 160 mg tablet 160 mg PO QPM sertraline 100 mg tablet 100 mg PO DAILY amlodipine 10 mg tablet 10 mg PO DAILY Referrals: [facility] [Provider Group] [facility] [Outside] Interventions: ED Discharge Assessment Last Done: 08/23/25 08:50 Discharge Date/Time: 08/23/25 09:39 Print Language: Brazilian
[2025-08-22] MEDS: Morphine Sulfate Immed Release 15 MG TABLET PO ×2 (07:55→12:06)
--- NOTE | 2025-08-22 08:03 | PC.NURSE ---
pt medicated per provider order. effectiveness pending. pending XR to be completed at this time. plan of care ongoing. call ann placed within reach.
--- NOTE | 2025-08-22 09:21 | PC.NURSE ---
knee immobilizer applied to LLE. pt tolerated well. pt notified/aware that she will be pending PT/CM consult d/t L knee fx. pt agreeable w/ plan. pt otherwise continues to rest in no apparent distress. plan of care ongoing. call ann placed within reach.
--- NOTE | 2025-08-22 11:32 | PHA.MEDREC ---
Pharmacy Consult ? Medication Reconciliation Pharmacy has completed the medication reconciliation. RN requested pharmacy complete med rec as patient is a poor historian and nor is her daughter. Completed med rec utilizing patients med box claims.
[2025-08-23 04:35] VITALS: BP 138/73; PULSE 99; RESP 16; TEMP 36.4; O2SAT 98
[2025-08-23 07:07] VITALS: BP 144/77; PULSE 95; RESP 18; TEMP 36.8; O2SAT 95
--- NOTE | 2025-08-23 07:15 | PC.NURSE ---
pt specifically requested tylenol for headache 9/10 pain, tylenol given.
--- NOTE | 2025-08-23 07:30 | PC.NURSE ---
Assumed care of patient. Pt is A+OX4, anxious, cooperative. Pt medicated for anxiety per request by patient. Pt denies any L leg pain at this time, c/o 07/20 headache and was medicated for it. RR even and unlabored, denies CP or SOB. Pt eager to return home.
[2025-08-23 08:35] VITALS: BP 144/77
[2025-08-23] MEDS: Ferrous Sulfate 324 MG TABLET.DR PO (08:35)
[2025-08-23 08:37] VITALS: BP 144/77; PULSE 89
[2025-08-23] MEDS: Metoprolol Succinate ER 50 MG TAB.ER.24H PO (08:37)
[2025-08-23 08:50] VITALS: BP 144/77; PULSE 89; RESP 18; TEMP -17.7; TEMP 0; O2SAT 95
--- NOTE | 2025-08-23 12:51 | MHC.CM.ED ---
Patient was d/c'd home before being seen by CM. Physicla therapy eval completed. Home with services was recommended. Patient has CCA. Referral broadcasted in [facility]. [facility] is only agency able to accept patient at this time.
== END 2025-08-23 09:39 | disposition home or self-care (01) ==
PROVIDERS: Emergency Provider Emergency Medicine; PCP Internal Medicine Geriatric Medicine
DX: S82.202A Unspecified fracture of shaft of left tibia, initial encounter for closed fracture (principal); R26.81 Unsteadiness on feet; M25.562 Pain in left knee; X58.XXXA Exposure to other specified factors, initial encounter; Y93.9 Activity, unspecified; Y92.9 Unspecified place or not applicable; Y99.8 Other external cause status
CPT/HCPCS: 29505; 73564; 97161; 99285

== ENCOUNTER → 2025-08-22 07:34 | Outpatient (BNV) | payer OTHER, SELFPAY | PROVIDERS: Emergency Provider Emergency Medicine; Visit Provider Specialist | DX: S89.102A Unspecified physeal fracture of lower end of left tibia, initial encounter for closed fracture (principal) | CPT/HCPCS: 73564 ==

== ENCOUNTER 2025-08-26 15:07 | Emergency (ER) | payer OTHER, SELFPAY ==
--- NOTE | ~2025-08-26 | XR_ITS ---
EXAMINATION: XR KNEE 4 OR MORE VIEWS LEFT HISTORY: pain COMPARISON: Comparison is made with the prior examination dated 08/22/2025. FINDINGS: Five views of the left knee are submitted. Osseous mineralization is normal. 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 There is no acute fracture or dislocation. The joint spaces are preserved. There are vascular calcifications. There is no joint effusion. XR/XR knee LT 4V IMPRESSION: No acute abnormality. Electronically signed by: Suhail Mina MD 08/26/2025 03:58 PM EDT
--- NOTE | 2025-08-26 15:29 | ED.EXTPRO ---
HPI - Extremity Problem General Chief complaint: Extremity Injury, Lower Stated complaint: LT KNEE FRACTURE Time Seen by Provider: 08/26/25 15:21 Source: patient, EMS, old records reviewed and filament shaper Mode of arrival: EMS Limitations: no limitations History of Present Illness ED Provider: EMILIA DUMONT Narrative: 79 yo female with PMH of HTN, SVT, PE on eliquis, hyponatremia, dementia, anxiety here s/p L tibial apophyseal fracture DC home with services at her request - put in knee immobilizer. She notes at home she has pain no new trauma. States she felt something move and is demanding xray. She denies any other symptoms states she needs morphine. She notes her tramadol was not filled - her LINE REPAIRER TOWER shows it was picked up on 08/23. She states her tramadol is not helping. She has no new swelling. Pain is on the front of the knee. Her symptoms reportedly started on the first day she c/p low back pain which was 08/20. MD Complaint: joint swelling and joint pain Pain Consistency: constant Location: left and knee Quality: aching Radiation: none Relieving factors: immobilization Exacerbating factors: range of motion, weight bearing, walking and palpation Associated symptoms: denies other symptoms Context: other Related Data Home Medications ?Medication ?Instructions ?Recorded ?Confirmed omeprazole 20 mg tablet,delayed 20 mg PO DAILY@0630 08/09/20 08/22/25 release aspirin 81 mg tablet,delayed 81 mg PO QAM 01/28/24 08/22/25 release bisacodyl 5 mg tablet,delayed 5 mg PO DAILY PRN constipation 01/28/24 08/22/25 release ferrous sulfate 325 mg (65 mg 325 mg PO DAILY 01/28/24 08/22/25 iron) tablet (FeroSul) melatonin 10 mg tablet,extended 10 mg PO BEDTIME PRN Insomnia 01/28/24 08/22/25 release multivitamin 1 tab PO QAM 01/28/24 08/22/25 rosuvastatin 20 mg tablet 20 mg PO BEDTIME 01/28/24 08/22/25 trazodone 50 mg tablet 50 mg PO BEDTIME 01/28/24 08/22/25 amlodipine 10 mg tablet 10 mg PO DAILY 02/09/24 08/22/25 acetaminophen 500 mg tablet 500 mg PO Q8H PRN pain 08/09/24 08/22/25 cholecalciferol (vitamin D3) 25 25 mcg PO DAILY 08/20/24 08/22/25 mcg (1,000 unit) tablet sertraline 100 mg tablet 100 mg PO DAILY 03/16/25 08/22/25 apixaban 5 mg tablet 5 mg PO BID 08/22/25 08/22/25 clonazepam 0.5 mg tablet 0.5 mg PO TID 08/22/25 08/22/25 fluticasone propionate 50 2 spray intranasal DAILY PRN 08/22/25 08/22/25 mcg/actuation nasal Allergic Symptoms spray,suspension (Flonase Allergy Relief) hydroxyzine HCl 25 mg tablet 10 mg PO DAILY PRN anxiety 08/22/25 08/22/25 ketotifen fumarate 0.025 % (0.035 1 drp ophthalmic (eye) BID PRN 08/22/25 08/22/25 %) eye drops allergies mirtazapine 45 mg tablet 45 mg PO BEDTIME 08/22/25 08/22/25 valsartan 160 mg tablet 160 mg PO QPM 08/22/25 08/22/25 Previous Rx's ?Medication ?Instructions ?Recorded metoprolol succinate 50 mg 50 mg PO DAILY #90 tabs 09/28/20 tablet,extended release 24 hr docusate sodium 100 mg capsule 200 mg (2 x 100 mg) PO BID #20 caps 02/24/25 (Colace) ibuprofen 200 mg tablet 200 mg PO Q6H PRN pain #20 tabs 07/24/25 meclizine 12.5 mg tablet 12.5 mg PO TID PRN dizziness or 07/26/25 vertigo #30 tabs Allergies Allergy/AdvReac Type Severity Reaction Status Date / Time penicillin G (Penicillin G) Allergy Severe ITCHY/RASH Verified 08/26/25 15:44 Sulfa (Sulfonamide Allergy Severe ITCHY,RASH, Verified 08/26/25 15:44 Antibiotics) (Sulfa rash (Sulfonamides)) trimethoprim (From Bactrim) Allergy Severe HIVES Verified 08/26/25 15:44 Penicillins Allergy Intermediate Hives Verified 08/26/25 15:44 sulfamethoxazole (From Allergy Mild Hives Verified 08/26/25 15:44 Bactrim) Review of Systems Review of Systems: Constitutional : No Fever, No Chills Cardiovascular : No Chest Pain, No SOB Respiratory : No Cough, No Dyspnea Gastrointestinal : No Nausea, No Vomiting, No Diarrhea, No abdominal Pain Musculoskeletal : positive joint pain, No Myalgias, pos Joint Swelling Skin : No Skin lacerations, No rash Neuro : No Weakness, No Numbness All other systems reviewed and are negative Yes all other systems are reviewed and are negative [facility] Past Medical History Attestation statement: The following information was validated with the patient. Source: old records reviewed 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 or 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 (defect cutter) Alcohol intake: never Patient Tobacco Use Status: Never used Tobacco Advance Directives Date on File: 01/28/24 Do you have a plan to hurt others: No Plan service: No Physical Exam Vital Signs: Vital Signs: Last Vital Signs Temp 97.9 F 08/26/25 15:35 Pulse 81 08/26/25 15:35 Resp 18 08/26/25 15:35 BP 132/78 08/26/25 15:35 Pulse Ox 98 08/26/25 15:35 O2 Del Method Room Air 08/26/25 15:35 BMI result Body Mass Index 29.8 Appearance: Alert. Oriented X but slightly confused she is at her baseline from other ED visits. No acute distress. Eyes: Pupils equal, round and reactive to light. ENT: Pharynx normal. Neck: Normal inspection. Neck supple. CVS: Normal heart rate and rhythm. Pulses normal. Respiratory: No respiratory distress. Breath sounds normal. Abdomen: Soft and nontender. Skin: Skin warm and dry. Normal skin color. Normal skin turgor. Extremities: No lower extremity edema.L knee brace is not on appropriate - the top strap is over the patell joint. She has has two straps that were cut and too short and not in place. She is NV intact distally Neuro: Oriented X at baseline. No motor deficit. No sensory deficit. Medical Decision Making Medical Decision Making MDM Narrative: 79 yo female with PMH of HTN, SVT, PE on eliquis, hyponatremia, dementia, anxiety here now here with c/o persistent knee pain states her brace isn't right. I asked how she put it on and why the straps were cut it was put on like that . She has no calf pain, distal NV intact, compartments are soft and intact. She has tramadol at home after fill. I am not going to fill morphine on 79 yo female with hx of CKD and dementia. She will be offered rehab Differential Diagnosis Differential Diagnoses: The differential diagnosis associated with the presentation includes chronic pain, poor social support Admission/Observation Consideration of admission/observation: Escalation of care including admission/observation considered xray unchanged refuses rehab I really think this is old it is well corticated I do not think she has an acute injury there is no swelling Independent Interpretation I performed an independent interpretation of an: Plain X-Ray (no change) Radiology Impression Discussion of test interpretation with radiology: I have reviewed the radiologist's reading. Independent Historian Clinical information obtained from an independent historian. History obtained from or confirmed by: EMS External Record Review External record reviewed: Inpatient record and Outpatient record Social Determinants Patient?s care significantly limited by Social Determinants of Health including: Problems related to primary support group Discharge Plan Discharge Clinical Impression: Acute knee pain Patient Disposition: Home, Self-Care Instructions: Knee Pain (ED) Additional Instructions: continue to wear your brace and follow up with orthopedics no new changes on xray given the appearance this looks old not like a new fracture I suspect an old trauma FINDINGS: Five views of the left knee are submitted. Osseous mineralization is normal. 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 There is no acute fracture or dislocation. The joint spaces are preserved. There are vascular calcifications. There is no joint effusion. Prescriptions: No Action metoprolol succinate 50 mg tablet extended release 24 hr 50 mg PO DAILY Qty: 90 2RF omeprazole 20 mg Tablet,Delayed Release (Dr/Ec) 20 mg PO DAILY@0630 meclizine 12.5 mg tablet 12.5 mg PO TID PRN (Reason: dizziness or vertigo) Qty: 30 0RF trazodone 50 mg tablet 50 mg PO BEDTIME ferrous sulfate [FeroSul] 325 mg (65 mg iron) tablet 325 mg PO DAILY bisacodyl 5 mg tablet,delayed release (DR/EC) 5 mg PO DAILY PRN (Reason: constipation) rosuvastatin 20 mg tablet 20 mg PO BEDTIME aspirin 81 mg tablet,delayed release (DR/EC) 81 mg PO QAM multivitamin Tablet 1 tab PO QAM melatonin 10 mg tablet extended release 10 mg PO BEDTIME PRN (Reason: Insomnia) cholecalciferol (vitamin D3) 25 mcg (1,000 unit) tablet 25 mcg PO DAILY acetaminophen 500 mg tablet 500 mg PO Q8H PRN (Reason: pain) docusate sodium [Colace] 100 mg capsule 200 mg PO BID Qty: 20 0RF ibuprofen 200 mg tablet 200 mg PO Q6H PRN (Reason: pain) Qty: 20 0RF ketotifen fumarate 0.025 % (0.035 %) drops 1 drp ophthalmic (eye) BID PRN (Reason: allergies) mirtazapine 45 mg tablet 45 mg PO BEDTIME clonazepam 0.5 mg tablet 0.5 mg PO TID hydroxyzine HCl 25 mg tablet 10 mg PO DAILY PRN (Reason: anxiety) fluticasone propionate [Flonase Allergy Relief] 50 mcg/actuation spray,suspension 2 spray intranasal DAILY PRN (Reason: Allergic Symptoms) Rx Instructions: administer into each nostril apixaban 5 mg tablet 5 mg PO BID valsartan 160 mg tablet 160 mg PO QPM sertraline 100 mg tablet 100 mg PO DAILY amlodipine 10 mg tablet 10 mg PO DAILY Print Language: Maori
[2025-08-26 15:35] VITALS: BP 132/78; PULSE 81; RESP 18; TEMP 36.6; O2SAT 98; BMI 29.8
[2025-08-26 16:27] VITALS: BP 136/76; PULSE 79; RESP 19; TEMP 36.6; O2SAT 98
--- OUTSIDE RECORDS SUMMARY | 2025-08-26 18:20 | XMS_ITS | Encounter Summary ---
Author Organization [employer] Address [address] [facility] [address] [place] [address] Care Team Providers Care Anglesmith Name Role Phone Name, Nitin PIKE Primary Care Provider [phone] Encounter Details Date Type Department Care Team ([facility] Contact Info) Description 12/17/2022 Orders Only [facility] [address] [place], [place] [phone] Lisha Kelly LPN Social History Tobacco Use [...] Care Team (Late st Contact Info) Description 09/06/2025 1:30 PM EDT Office Visit [facility] [address] [place] [address] Thea Warren FNP [address] [place] [address] 11/07/2025 10:00 AM EST Office Visit [facility] [address] [place] [address] NameNitin MD [address] [place] [address] documented as of this encounter Visit Diagnoses Not on filedocumented in this encounter Care Teams Anglesmith Relationship Specialty Start Date End Date Name, MD Nitin [address] [place] [address] PCP - General Family Medicine 08/26/17 [facility] 09/01/24 documented as of this encounter
--- OUTSIDE RECORDS SUMMARY | 2025-08-26 18:20 | XMS_ITS | Encounter Summary ---
Author Organization [employer] Address [address] [facility] [address] [place] [address] Care Team Providers Care Bioprocess Engineer Name Role Phone Name, Nitin PIKE Primary Care Provider Reason for Visit * Reason Comments Med Refill Encounter Details Date Type Department Care Team ([facility] st Contact Info) Description 06/28/2024 Refill [facility] [address] [place], [place] [phone] Mel Anguiano FNP [address] [place] [address] Social History Tobacco Use Types Packs/Day Years [...] Description 09/06/2025 1:30 PM EDT Office Visit [facility] [address] [place] [address] Thea Warren FNP [address] [place] [address] 11/07/2025 10:00 AM EST Office Visit [address] [address] NameNitin MD [address] [place] [address] documented as of this encounter Visit Diagnoses Not on filedocumented in this encounter Additional Health Concerns Assessment Noted Time PHQ-9 Depression Total Score: 6 02/13/20 24 9:14 AM EDT documented as of this encounter Care Teams Bioprocess Engineer Relationship Specialty Start Date End Date Nitin Echevarria MD [address] [place] [address] PCP - General Family Medicine 08/26/17 [facility] 09/01/24 documented as of this encounter
--- OUTSIDE RECORDS SUMMARY | 2025-08-26 18:20 | XMS_ITS | Encounter Summary ---
Author Organization [employer] Address [address] [facility] [address] [place] [address] Care Team Providers Care Overhead Crane Truck Loader Name Role Phone Name, Nitin PIKE Primary Care Provider [phone] Reason for Visit * Reason Onset Date Comments Med Refill 11/08/2024 Encounter Details Date Type Department Care Team ([facility] st Contact Info) Description 11/08/[address] [facility] 230 [place], [place] [phone] Name, MD Nitin [address] [place] [address] Med Refill Social History Tobacco Use Types [...] 5 MG tablet To be sent to: [facility] - [place], [place] - [address] [facility] documented in this encounter Plan of Treatment Upcoming Encounters Date Type Department Care Team ([facility] st Contact Info) Description 09/06/2025 1:30 PM EDT Office Visit [facility] [address] [place] [address] Thea Warren FNP [address] [place] [address] 11/07/2025 10:00 AM EST Office Visit [facility] [address] [place] [address] Name, [place] [address] documented as of this encounter Visit Diagnoses Not on filedocumented in this encounter Additional Health Concerns Assessment Noted Time PHQ-9 Depression Total Score: 6 02/13/20 24 9:14 AM EDT documented as of this encounter Care Teams Overhead Crane Truck Loader Relationship Specialty Start Date End Date Name, [place] [address] PCP - General Family Medicine 08/26/17 [facility] 09/01/24 documented as of this encounter
--- OUTSIDE RECORDS SUMMARY | 2025-08-26 18:20 | XMS_ITS | Encounter Summary ---
Author Organization [employer] Address [address] [facility] [address] [place] [address] Care Team Providers Care Sample Grader Name Role Phone Name, Nitin PIKE Primary Care Provider Reason for Visit * Reason Onset Date Comments Verbal Order 08/24/2025 Encounter Details Date Type Department Care Team ([facility] st Contact Info) Description 08/24/2025 Telephone [facility] 230 [place], [place] [phone] Name, MD Nitin 230 [place] [address] Verbal Order Social History Tobacco Use Types Packs/Day Years [...] Telephone Encounter - Fozia Jacob RN - 08/24/2025 2:49 PM EDT Call returned to Pham at [facility] who states they initiated VNA for pt today, started at [facility].Pham asking if pcp is willing to sign vna paperwork for pt. Approved verbal order. Pt evaluated in [facility] ED 08/20/25 Diagnosis: Low back pain, muscle spasm. Pt evaluated in [facility] ED 08/22/25 Diagnosis: Closed tibial fracture. T/C to pt for status check via S Corporate Law Specialist Ana #[phone]. Pt reports that she still feels terrible due to 10 left knee pain and low back pain. Pt reports that her knee is broken and she is about to take 500 mg of Tylenol for pain. Pt tearful during call and reports that her son is with her. Pt agrees to f/u with team provider 09/06/25. Recommended that pt return to ED if pain is not controlled with medications prescribed in ED. Pt reports agreement with plan. * Telephone Encounter - Adithya Solorzano - 08/24/2025 12:38 PM EDT Tc from Pham with [facility] requesting a verbal order for home health services. Please contact Pham at [phone]. documented in this encounter Plan of Treatment Upcoming Encounters Date Type Department Care Team (Late st Contact Info) Description 09/06/2025 1:30 PM EDT Office Visit [facility] [address] [place] [address] Thea Warren FNP 230 [place] [address] 11/07/2025 10:00 AM EST Office Visit [address] [address] Name, MD Nitin [address] [place] [address] documented as of this encounter Visit Diagnoses Not on filedocumented in this encounter Additional Health Concerns Assessment Noted Time PHQ-9 Depression Total Score: 3 04/29/20 25 9:41 AM EDT documented as of this encounter Care Teams Sample Grader Relationship Specialty Start Date End Date NameNitin MD [address] [place] [address] PCP - General Family Medicine 08/26/17 [facility] 09/01/24 documented as of this encounter
--- OUTSIDE RECORDS SUMMARY | 2025-08-26 18:20 | XMS_ITS | Encounter Summary ---
Author Organization [email or web address] Address [address] [facility] [address] [place] [address] Care Team Providers Care Real Estate Intern Name Role Phone Name, Nitin PIKE Primary Care Provider [phone] Encounter Details Date Type Department Care Team (Late st Contact Info) Description 11/06/2022 Orders Only [facility] [address] [place], [place] [phone] Lisha Kelly LPN Social History Tobacco Use [...] Description 09/06/2025 1:30 PM EDT Office Visit [facility] [address] [place] [address] Thea Warren FNP [address] [place] [address] 11/07/2025 10:00 AM EST Office Visit [address] [address] Nitin Echevarria MD [address] [place] [address] documented as of this encounter Visit Diagnoses Not on filedocumented in this encounter Care Teams Real Estate Intern Relationship Specialty Start Date End Date Name, MD Nitin [address] [place] [address] PCP - General Family Medicine 08/26/17 [facility] 09/01/24 documented as of this encounter
--- OUTSIDE RECORDS SUMMARY | 2025-08-26 18:20 | XMS_ITS | Encounter Summary ---
Author Organization [employer] Address [address] [facility] [address] [place] [address] Care Team Providers Care City Superintendent Of Schools Name Role Phone Name, Nitin PIKE Primary Care Provider [phone] Reason for Visit * Reason Comments Med Refill Encounter Details Date Type Department Care Team (Late st Contact Info) Description 04/20/2025 Refill [facility] 230 [place] [address] Zechariah Cheung MD [address] [place] [address] Allergic rhinitis, unspecified seasonality, unspecified trigger Social [...] 1:30 PM EDT Office Visit [facility] [address] [place] [address] Thea Warren FNP [address] [place] [address] 11/07/2025 10:00 AM EST Office Visit [facility] [address] [place] [address] Nitin Echevarria MD [address] [place] [address] documented as of this encounter Visit Diagnoses Diagnosis Allergic rhinitis, unspecified seasonality, unspecified trigger documented in this encounter Additional Health Concerns Assessment Noted Time PHQ-9 Depression Total Score: 6 02/13/20 24 9:14 AM EDT documented as of this encounter Care Teams City Superintendent Of Schools Relationship Specialty Start Date End Date Nitin Echevarria MD [address] [place] [address], [place] [address] PCP - General Family Medicine 08/26/17 [facility] 09/01/24 documented as of this encounter
--- OUTSIDE RECORDS SUMMARY | 2025-08-26 18:20 | XMS_ITS | Encounter Summary ---
Author Organization [employer] Address [address] [facility] 7[address] [place] [address] Care Team Providers Care Fund Development Manager Name Role Phone Name, Nitin PIKE Primary Care Provider [phone] Reason for Visit * Reason Onset Date Comments Referral 08/24/2025 Encounter Details Date Type Department Care Team ([facility] st Contact Info) Description 08/24/2025 Telephone [facility] 230 [place], [place] [phone] Name, MD Nitin [address] [place] [address] Referral Social History Tobacco Use Types Packs/Day Years [...] encounter Miscellaneous Notes * Telephone Encounter - Alina Mcdonald - 08/24/2025 2:28 PM EDT TC from pt requesting new referral : DATE: 09/21/25 TIME: 10 am Facility Name: [facility] Type of Specialist: Physical therapy Facility Phone # : [phone] Fax #: [phone] documented in this encounter Plan of Treatment Upcoming Encounters Date Type Department Care Team (Late st Contact Info) Description 09/06/2025 1:30 PM EDT Office Visit [facility] [address] [place] [address] Thea Warren FNP 230 [place] [address] 11/07/2025 10:00 AM EST Office Visit [facility] [address] [place] [address] Name, MD Nitin [address] [place] [address] documented as of this encounter Visit Diagnoses Not on filedocumented in this encounter Additional Health Concerns Assessment Noted Time PHQ-9 Depression Total Score: 3 04/29/20 25 9:41 AM EDT documented as of this encounter Care Teams Fund Development Manager Relationship Specialty Start Date End Date Name, MD Nitin [address] [place] [address] PCP - General Family Medicine 08/26/17 [facility] 09/01/24 documented as of this encounter
--- OUTSIDE RECORDS SUMMARY | 2025-08-26 18:20 | XMS_ITS | Encounter Summary ---
Author Organization [employer] Address [address] [facility] 7[address] [place] [address] Care Team Providers Care Ops Analyst Name Role Phone Name, Nitin PIKE Primary Care Provider Reason for Visit * Reason Comments Med Refill Encounter Details Date Type Department Care Team ([facility] st Contact Info) Description 04/01/2024 Refill [facility] 230 [place], [place] [phone] Name, MD Nitin [address] [place] [address] Rash Social History Tobacco Use Types Packs/Day [...] Description 09/06/2025 1:30 PM EDT Office Visit [facility] [address] [place] [address] hTea Warren FNP [address] [place] [address] 11/07/2025 10:00 AM EST Office Visit [address] [address] Name, MD Nitin [address] [place] [address] documented as of this encounter Visit Diagnoses Diagnosis Rash Rash and other nonspecific skin eruption documented in this encounter Additional Health Concerns Assessment Noted Time PHQ-9 Depression Total Score: 6 02/13/20 9:14 AM EDT documented as of this encounter Care Teams Ops Analyst Relationship Specialty Start Date End Date NameNitin MD [address] [place] [address] PCP - General Family Medicine 08/26/17 [facility] 09/01/24 documented as of this encounter
--- OUTSIDE RECORDS SUMMARY | 2025-08-26 18:20 | XMS_ITS | Encounter Summary ---
Author Organization [employer] Address [address] [facility] 7[address] [place] [address] Care Team Providers Care Vacuum Kettle Cook Name Role Phone Name, Nitin PIKE Primary Care Provider [phone] Reason for Visit * Reason Onset Date Comments Results 08/29/2023 Encounter Details Date Type Department Care Team ([facility] st Contact Info) Description 08/29/2023 Telephone [facility] [address] [place], [place] [phone] Name, MD Nitin 230 [place] [address] Results Social History Tobacco Use Types Packs/Day [...] 09/01/2023 11:51 AM EDT Pt evaluated in [facility] today and is scheduled with pcp 09/03/23. * Telephone Encounter - Janette Huitron - 08/29/2023 4:06 PM EDT Tc from pt requesting a call in regards to urine results. Please contact pt at [phone] (Saudi Arabian) documented in this encounter Plan of Treatment Upcoming Encounters Date Type Department Care Team (Late st Contact Info) Description 09/06/2025 1:30 PM EDT Office Visit [facility] [address] [place] [address] Thea Warren FNP 230 [place] [address] 11/07/2025 10:00 AM EST Office Visit [address] [address] Name, MD Nitin [address] [place] [address] documented as of this encounter Visit Diagnoses Not on filedocumented in this encounter Additional Health Concerns Assessment Noted Time PHQ-9 Depression Total Score: 12 023 9:37 AM EDT documented as of this encounter Care Teams Vacuum Kettle Cook Relationship Specialty Start Date End Date Name, MD Nitin [address] [place] [address] PCP - General Family Medicine 08/26/17 [facility] 09/01/24 documented as of this encounter
--- OUTSIDE RECORDS SUMMARY | 2025-08-26 18:20 | XMS_ITS | Encounter Summary ---
Author Organization [employer] Address 75 [facility] 7[address] [place] [address] Care Team Providers Care Rotating Equipment Specialist Name Role Phone Name, Nitin PIKE Primary Care Provider [phone] Reason for Visit * Reason Onset Date Comments ER Follow-up 05/04/2024 Encounter Details Date Type Department Care Team ([facility] Contact Info) Description 05/04/2024 Telephone [facility] MED[facility]INE 230 [place], [place] [phone] Name, MD Nitin 230 [place] [address] ER Follow-up Social History Tobacco Use Types [...] 11:01 AM EDT T/C to pt. Through [employer] id - [id number] for below message, No answer. LVM to call back [phone] . * Telephone Encounter - Adithya Solorzano - 05/04/2024 9:35 AM EDT Noreen with [facility] calling to report ED visit on : Date: 04/28 Hospital: [facility] Seen for: UTI, Nausea, Rash. Noreen advised will be forwarding message to team nurses. Please contact pt at [phone]. documented in this encounter Plan of Treatment Upcoming Encounters Date Type Department Care Team (Late st Contact Info) Description 09/06/2025 1:30 PM EDT Office Visit [facility] [address] [place] [address] Thea Warren FNP 230 [place] [address] 11/07/2025 10:00 AM EST Office Visit [facility] [address] [place] [address] Name, MD Nitin 230 [place] [address] documented as of this encounter Visit Diagnoses Not on filedocumented in this encounter Additional Health Concerns Assessment Noted Time PHQ-9 Depression Total Score: 6 02/13/20 24 9:14 AM EDT documented as of this encounter Care Teams Rotating Equipment Specialist Relationship Specialty Start Date End Date Name, MD Nitin 230 [place] [address] PCP - General Family Medicine 08/26/17 [facility] 09/01/24 documented as of this encounter
--- OUTSIDE RECORDS SUMMARY | 2025-08-26 18:20 | XMS_ITS | Encounter Summary ---
Author Organization [employer] Address 75 [facility] 7[address] [place] [address] Care Team Providers Care Medical Services Assistant Name Role Phone Name, Nitin PIKE Primary Care Provider [phone] Reason for Visit * Reason Onset Date Comments Hospital Follow-up 10/20/2024 Encounter Details Date Type Department Care Team ([facility] Contact Info) Description 10/20/2024 Telephone [facility] 230 [place], [place] [phone] Name, MD Nitin 230 [place] [address] Hospital Follow-up Social History Tobacco Use Types [...] from pt requesting a HDF appt. Hospital: [facility] Date of admission: 10/17 Discharge date: 10/19 Diagnosed: High Blood Pressure and Fever Contact pt at [phone] *Send message to [facility] Coordinators documented in this encounter Plan of Treatment Upcoming Encounters Date Type Department Care Team (Late st Contact Info) Description 09/06/2025 1:30 PM EDT Office Visit [facility] [address] [place] [address] Thea Warren FNP 230 [place] [address] 11/07/2025 10:00 AM EST Office Visit [facility] [address] [place] [address] Name, MD Nitin 230 [place] [address] documented as of this encounter Visit Diagnoses Not on filedocumented in this encounter Additional Health Concerns Assessment Noted Time PHQ-9 Depression Total Score: 6 02/13/20 24 9:14 AM EDT documented as of this encounter Care Teams Medical Services Assistant Relationship Specialty Start Date End Date Name, MD Nitin [address] [place] [address] PCP - General Family Medicine 08/26/17 [facility] 09/01/24 documented as of this encounter
--- OUTSIDE RECORDS SUMMARY | 2025-08-26 18:20 | XMS_ITS | Encounter Summary ---
Author Organization [employer] Address 75 [facility] 7t [place] [address] Care Team Providers Care Histopathologist Name Role Phone Name, Nitin PIKE Primary Care Provider [phone] Encounter Details Date Type Department Care Team (Late Contact Info) Description 08/08/2023 Telephone [facility] [address] [place] [address] [phone] Name, MD Nitin [address] [place] [address] [phone] Social History Tobacco Use Types Packs/Day Years [...] Department Care Team (Late Contact Info) Description 09/06/2025 1:30 PM EDT Office Visit [facility] [address] [place] [address] [phone] Thea Warren FNP [address] [place] [address] [phone] 11/07/2025 10:00 AM EST Office Visit [facility] 230 [place] [address] Name, MD Nitin 230 [place] [address] documented as of this encounter Visit Diagnoses Not on filedocumented in this encounter Additional Health Concerns Assessment Noted Time PHQ-9 Depression Total Score: 12 023 9:37 AM EDT documented as of this encounter Care Teams Histopathologist Relationship Specialty Start Date End Date Name, MD Nitin 230 [place] [address] PCP - General Family Medicine 08/26/17 [facility] 09/01/24 documented as of this encounter
--- OUTSIDE RECORDS SUMMARY | 2025-08-26 18:20 | XMS_ITS | Encounter Summary ---
Author Organization [employer] Address 75 [facility] 7[address] [place] [address] Care Team Providers Care Sustainable Development Policy Analyst Name Role Phone Name, Nitin PIKE Primary Care Provider Reason for Visit * Reason Comments Med Refill Encounter Details Date Type Department Care Team (Late st Contact Info) Description 08/17/2025 Refill [facility] MEDICINE 230 [place], [place] [phone] Miryam Riley NP 230 [place], [place] [phone] Hypertension, unspecified type Social History Tobacco Use [...] Description 09/06/2025 1:30 PM EDT Office Visit [facility] MEDICINE [address] [place] [address] Thea Warren FNP [address] [place] [address] 11/07/2025 10:00 AM EST Office Visit [address] [address] Nitin Echevarria MD [address] [place] [address] documented as of this encounter Visit Diagnoses Diagnosis Hypertension, unspecified type documented in this encounter Additional Health Concerns Assessment Noted Time PHQ-9 Depression Total Score: 3 04/29/20 25 9:41 AM EDT documented as of this encounter Care Teams Sustainable Development Policy Analyst Relationship Specialty Start Date End Date Nitin Echevarria MD [address] [place] [address] PCP - General Family Medicine 08/26/17 [facility] 09/01/24 documented as of this encounter
--- OUTSIDE RECORDS SUMMARY | 2025-08-26 18:20 | XMS_ITS | Encounter Summary ---
Author Organization [employer] Address 75 [facility] 7t [place] [address] Care Team Providers Care Cook Chill Technician Name Role Phone Name, Nitin PIKE Primary Care Provider [phone] Reason for Visit * Reason Onset Date Comments Durable Medical Equipment 12/09/2023 Encounter Details Date Type Department Care Team ([facility] st Contact Info) Description 12/09/2023 Telephone [facility]INE 230 [place], [place] [phone] Name, MD Nitin 230 [place], [place] [phone] Durable Medical Equipment Social History Tobacco Use [...] AM EST DME rx faxed to [facility] as requested. RN will consult with S nurse and provide referral. * Telephone Encounter - Fozia Jacob RN - 12/09/2023 4:58 PM EST Call returned to [facility] at [facility] [phone] [facility] states that [facility] attempted to provide PT at home but pt refused. [facility] pt is requesting outpatient PT. [facility] pt is seeing a counselor more regularly and has agreed to VNA referral. Reports pt has had 3 falls in the past [address] [facility] states [facility] no longer has visiting nurses. [facility] recommends [facility] or [facility] for VNA referral. [facility] also requesting DME rx for rollator walker and a straight cane. Requests that DME rx be faxed to [phone]. Advised requests will be sent to pcp. * Telephone Encounter - Adithya Solorzano - 12/09/2023 4:25 PM EST Tc from [facility] requesting DME: Rollator walker . documented in this encounter Plan of Treatment Upcoming Encounters Date Type Department Care Team (Late st Contact Info) Description 09/06/2025 1:30 PM EDT Office Visit [facility] 230 [place] [address] Thea Warren FNP 230 [place] [address] 11/07/2025 10:00 AM EST Office Visit [facility] 230 [place] [address] Name, MD Nitin 230 [place] [address] documented as of this encounter Visit Diagnoses Not on filedocumented in this encounter Additional Health Concerns Assessment Noted Time PHQ-9 Depression Total Score: 12 05/29/ 023 9:37 AM EDT documented as of this encounter Care Teams Cook Chill Technician Relationship Specialty Start Date End Date Name, MD Nitin [address] [place] [address] PCP - General Family Medicine 08/26/17 [facility] 09/01/24 documented as of this encounter
--- OUTSIDE RECORDS SUMMARY | 2025-08-26 18:20 | XMS_ITS | Encounter Summary ---
Author Organization [employer] Address 75 [facility] 7[address] [place] [address] Care Team Providers Care Public Records Officer Name Role Phone Name, Nitin PIKE Primary Care Provider [phone] Reason for Visit * Reason Onset Date Comments Call Back Request 03/14/2025 Encounter Details Date Type Department Care Team ([facility] st Contact Info) Description 03/14/2025 Telephone [facility] 230 [place], [place] [phone] Name, MD Nitin 230 [place] [address] Call Back Request Social History Tobacco Use [...] PM EDT Office Visit [facility] [address] [place] [address] Thea Warren FNP 230 [place] [address] 11/07/2025 10:00 AM EST Office Visit [facility] [address] [place] [address] Name, MD Nitin [address] [place] [address] documented as of this encounter Visit Diagnoses Not on filedocumented in this encounter Additional Health Concerns Assessment Noted Time PHQ-9 Depression Total Score: 6 02/13/20 24 9:14 AM EDT documented as of this encounter Care Teams Public Records Officer Relationship Specialty Start Date End Date Name, MD Nitin [address] [place] [address] PCP - General Family Medicine 08/26/17 [facility] 09/01/24 documented as of this encounter
--- OUTSIDE RECORDS SUMMARY | 2025-08-26 18:20 | XMS_ITS | Encounter Summary ---
Author Organization [employer] Address 75 [facility] 7[address] [place] [address] Care Team Providers Care Documentation Liaison Name Role Phone Name, Nitin PIKE Primary Care Provider [phone] Encounter Details Date Type Department Care Team ([facility] st Contact Info) Description 05/26/2023 Orders Only [facility] MEDICINE [address] [place] [address] Noreen Fox MD [address] [place] [address] Social History Tobacco Use Types Packs/Day Years [...] Upcoming Encounters Date Type Department Care Team ([facility] st Contact Info) Description 09/06/2025 1:30 PM EDT Office Visit [facility] [address] [place] [address] Thea Warren FNP 230 [place] [address] 11/07/2025 10:00 AM EST Office Visit [facility] [address] [place] [address] Name, [place] [address] documented as of this encounter Visit Diagnoses Not on filedocumented in this encounter Care Teams Documentation Liaison Relationship Specialty Start Date End Date Name, [place] [address] PCP - General Family Medicine 08/26/17 [facility] 09/01/24 documented as of this encounter
--- OUTSIDE RECORDS SUMMARY | 2025-08-26 18:20 | XMS_ITS | Clinical Summary ---
Author Organization [facility] Address [address] [place] [address] Phone Care Team Providers Care Alumina Plant Supervisor Name Role Phone Physician, No Pcp Primary [...] [facility] Comment:Calculation based on the Chronic [...] LAB CHEMISTRY METHOD 09/22/2024 3:15 AM EST [facility] Albumin 4.2 3.2 - 5.0 g/dL LAB CHEMISTRY METHOD 09/22/2024 3:15 AM EST [facility] Total Bilirubin 0.4 0.0 - 1.4 mg/dL LAB CHEMISTRY METHOD 09/22/2024 3:15 AM EST [facility] Blood Venous blood specimen / Unknown Venipuncture / Unknown 09/22/2024 2:28 AM EST 09/22/2024 2:31 AM EST Paul RIUZ LAB BLOOD ORDERABLES Final Resul t [facility] [address] [place] [address], from Last 3 Months or Most Recently Relevant to Health Maintenance Insurance [facility] MEDICARE Member Subscriber Plan / Payer (Ef fective 2021-Present) Name:Noreen Wing Relation to Subscriber:Self Name:Noreen Wing Payer ID:[id number] Group ID:[id number] Type:Not on file Address: [place] [address] [address] Care Teams Alumina Plant Supervisor Relationship Specialty Start Date End Date Physician, No Pcp PCP - General 09/22/24
--- OUTSIDE RECORDS SUMMARY | 2025-08-26 18:20 | XMS_ITS | Encounter Summary ---
Author Organization [email or web address] Address 75 [facility] 7[address] [place] [address] Care Team Providers Care Flange Machine Operator Name Role Phone Name, Nitin PIKE Primary Care Provider [phone] Reason for Visit * Reason Onset Date Comments ER Follow-up 05/31/2024 Encounter Details Date Type Department Care Team ([facility] Contact Info) Description 05/31/2024 Telephone [facility] MEDICINE 230 [place], [place] [phone] Name, MD Nitin [address] [place] [address] ER Follow-up Social History Tobacco Use Types [...] 05/31/2024 1:36 PM EDT T/C to Pat ([facility]) [phone] for below message, no answer. LVM to call back on [phone]. * Telephone Encounter - Melany Santos RN - 05/31/2024 1:32 PM EDT DAVID T/C to pt. Through [employer] id - [id number] for below message, pt. Had recent fall and ED visit at [facility]. RN will request GRACE piedra from [facility]. Pt. Is doing good, states I am tired andsleeping. Pt. Dose not has any question or concern right now. Pt. Already has HDF apt. Schedule on 06/10/2024. Pt. Advised to give call to [facility] if any questions or concerns. Pt. Verbally agreed and understood. Please review and advise if needed. * Telephone Encounter - Adithya Solorzano - 05/31/2024 12:50 PM EDT Patient calling to report ED visit on : Date: 05/26 Hospital: [facility] Seen for: Fall, Back Pain Pat stated pt is requesting a sooner apt with pcp due to recent ER visit. PT is also requesting order for PT services for to go along with VNA. documented in this encounter Plan of Treatment Upcoming Encounters Date Type Department Care Team (Late st Contact Info) Description 09/06/2025 1:30 PM EDT Office Visit [facility] MEDICINE [address] [place] [address] Thea Warren FNP [address] [place] [address] [phone] 11/07/2025 10:00 AM EST Office Visit [address] [address] NameNitin MD [address] [place] [address] documented as of this encounter Visit Diagnoses Not on filedocumented in this encounter Additional Health Concerns Assessment Noted Time PHQ-9 Depression Total Score: 6 02/13/20 24 9:14 AM EDT documented as of this encounter Care Teams Flange Machine Operator Relationship Specialty Start Date End Date Name, MD Nitin [address] [place] [address] PCP - General Family Medicine 08/26/17 [facility] 09/01/24 documented as of this encounter
--- OUTSIDE RECORDS SUMMARY | 2025-08-26 18:20 | XMS_ITS | Encounter Summary ---
Author Organization [employer] Address 75 [facility] 7[address] [place] [address] Care Team Providers Care Supervisor Patching Name Role Phone Name, Nitin PIKE Primary Care Provider [phone] Reason for Visit * Reason Onset Date Comments Order(s) 12/09/2023 Encounter Details Date Type Department Care Team ([facility] Contact Info) Description 12/09/2023 Telephone [facility] 230 [place], [place] [phone] Name, MD Nitin 230 [place], [place] [phone] Order(s) Social History Tobacco Use Types Packs/Day [...] orders. If any questions please contact Noreen [phone]. documented in this encounter Plan of Treatment Upcoming Encounters Date Type Department Care Team (Late st Contact Info) Description 09/06/2025 1:30 PM EDT Office Visit [address] [address] Thea Warren FNP [address] [place] [address] 11/07/2025 10:00 AM EST Office Visit [address] [address] NameNitin MD [address] [place] [address] documented as of this encounter Visit Diagnoses Not on filedocumented in this encounter Additional Health Concerns Assessment Noted Time PHQ-9 Depression Total Score: 12 023 9:37 AM EDT documented as of this encounter Care Teams Supervisor Patching Relationship Specialty Start Date End Date Nitin Echevarria MD [address] [place] [address] PCP - General Family Medicine 08/26/17 [facility] 09/01/24 documented as of this encounter
--- OUTSIDE RECORDS SUMMARY | 2025-08-26 18:20 | XMS_ITS | Encounter Summary ---
Author Organization [employer] Address 75 [facility] 7[address] [place] [address] Care Team Providers Care Project Coach Name Role Phone Name, Nitin PIKE Primary Care Provider [phone] Reason for Visit * Reason Comments Med Refill Encounter Details Date Type Department Care Team (Late st Contact Info) Description 01/09/2025 Refill [facility] 230 [place], [place] [phone] Name, MD Nitin 230 [place] [address] Hypertension, unspecified type Social History Tobacco Use [...] Description 09/06/2025 1:30 PM EDT Office Visit [facility] MEDICINE [address] [place] [address] Thea Warren FNP [address] [place] [address] 11/07/2025 10:00 AM EST Office Visit [facility] MEDICINE [address] [place] [address] NameNitin MD [address] [place] [address] documented as of this encounter Visit Diagnoses Diagnosis Hypertension, unspecified type documented in this encounter Additional Health Concerns Assessment Noted Time PHQ-9 Depression Total Score: 6 02/13/20 24 9:14 AM EDT documented as of this encounter Care Teams Project Coach Relationship Specialty Start Date End Date Nitin Echevarria MD [address] [place] [address] PCP - General Family Medicine 08/26/17 [facility] 09/01/24 documented as of this encounter
--- OUTSIDE RECORDS SUMMARY | 2025-08-26 18:20 | XMS_ITS | Clinical Summary ---
Author Organization [employer] Address [address] [place] [address] [address] [place] [address] Care Team Providers Care Traction Power Engineer Name Role Phone Name, Nitin PIKE Primary Care Provider [phone] Allergies Active Allergy Reactions Criticality Noted Date [...] MOUTH EVERY 8 HOURS NEEDED FOR PAIN (MALAYSIAN LABEL) 90 tablet 025 Active omeprazole (PriLOSEC) [...] MOUTH EVERY 8 HOURS NEEDED FOR PAIN (MALAYSIAN LABEL) 90 tablet 2024 Discontinued(R eorder (will [...] measures Rest Major neurocognitive disorder (CMS/HCC) 11/02/20 24 Acute otitis media 04/22/2024 Diarrhea 02/12/2024 Nausea [...] contraction) 04/23/2023 PVC (premature ventricular contraction) 04/23/20 23 Low blood glucose measurement 04/02/2023 Assessment & [...] because it calms her down. I called [facility] pharmacy to attempt a med rec they instructed me that she is on med box and one week at a time prescriptions because she would break into her med boxes to take more Ambien or xanax. She is being seen by Izzy Perea at [facility]. He is aware of her behavior and [...] left I received a call from the [facility] pharmacy instructing me that she was [...] Encounters Date Type Department Care Team Description 08/24/2025 Telephone [facility] [address] [place] [address] Nitin Echevarria MD Referral 08/24/2025 Telephone [facility] [address] [place] [address] Nitin Echevarria MD Verbal Order 08/22/2025 Orders Only [facility] External Provider, [facility] 08/18/2025 Orders Only GENERIC EXTERNAL DATA DEPARTMENT Provider, Generic External Data 08/17/2025 Refill [facility] [address] [place] [address] Nitin Echevarria MD 08/17/2025 Refill [facility] [address] [place] [address] Miryam Riley NP Hypertension, unspecified type 08/15/2025 Refill [facility] [address] [place] [address] Nitin Echevarria MD Heartburn 08/14/2025 Refill [facility] [address] [place], [place] [phone] Nitin Echevarria MD Heartburn; Vitamin D deficiency 08/09/2025 11:15 AM EDT Office Visit [facility] [address] [place] [address] Nitin Echevarria MD Generalized anxiety disorder with panic attacks (Primary Dx); Encounter for immunization; Chronic bilateral low back pain without sciatica 08/09/2025 Travel 08/01/2025 Refill [facility] [address] [place] [address] Nitin Echevarria MD Vitamin D deficiency 07/28/2025 Orders Only GENERIC EXTERNAL DATA DEPARTMENT Provider, Generic External Data 07/27/2025 Orders Only [facility] External Provider, [facility] 07/26/2025 Orders Only GENERIC EXTERNAL DATA DEPARTMENT Provider, Generic External Data 07/26/2025 Telephone [facility] [address] [place] [address] Nitin Echevarria MD ER Follow-up 07/25/2025 Refill [facility] [address] [place] [address] Nitin Echevarria MD 07/25/2025 Refill [facility] [address] [place] [address] Nitin Echevarria MD 07/18/2025 Refill [facility] [address] [place] [address] Miryam Riley NP 07/18/2025 Orders Only GENERIC EXTERNAL DATA DEPARTMENT Provider, Generic External Data 07/17/2025 Refill [facility] [address] [place] [address] Nitin Echevarria MD Hypertension, unspecified type 07/07/2025 8:40 AM EDT [facility] [address] [address] Zach Javier MD Acute conjunctivitis of left eye, unspecified acute conjunctivitis type (Primary Dx) 07/07/2025 Travel 07/01/2025 9:20 AM EDT [facility] [address] [address] Zach Javier MD Pedal edema (Primary Dx) 07/01/2025 Travel 06/28/2025 Refill [facility] [address] [place] [address] Nitin Echevarria MD 06/27/2025 Refill [facility] [address] [place], [place] [phone] Nitin Echevarria MD Vitamin D deficiency 06/19/2025 Refill [facility] [address] [address] Nitin Echevarria MD Prediabetes 06/17/2025 9:30 AM EDT Office Visit [facility] [address] [place] [address] Thea Warren, NOLVIA Generalized anxiety disorder with panic attacks (Primary Dx); Essential (primary) hypertension 06/17/2025 Travel 06/17/2025 Telephone [facility] [address] [place] [address] Name, MD Nitin Med Refill (Pt is ) 06/08/2025 Refill [facility] [address] [place] [address] Name, MD Nitin from Last 3 Months Immunizations Immunization Administration [...] Description 09/06/2025 1:30 PM EDT Office Visit [facility] [address] [place] [address] Thea Warren FNP [address] [place] [address] 11/07/2025 10:00 AM EST Office Visit [address] [phone] Name, MD Nitin [address] [place] [address] Health Maintenance Due Date Last Done Comments Alcohol/Substance Use Screening 1957 COVID-19 Vaccine ( season) 2025 08/16/2024, 08/22/2022, 08/22/2022, Additional history exists Diabetes: Hemoglobin A1C 01/10/2026 025, 06/02/2023, 12/25/2022, Additional history exists Depression Screening 04/29/2026 04/29/2025, 04/29/20 Tobacco Screening 06/17/2026 06/17/2025 SDOH Screening 08/09/2026 08/09/2025 Lipid Panel 09/19/2027 09/19/2022, 0304/2022, 04/12/2021 DTaP/Tdap/Td Vaccines (5 - Td or [...] Name Priority Date/Time Associated Diagnosis Comments XR KNEE 4+ VIEWS LEFT Routine 08/22/2025 8:16 AM EDT BASIC METABOLIC PANEL Routine 08/18/2025 8:44 AM [...] Relevant to Health Maintenance Results * XR Knee 4+ Views Left (08/22/2025 8:16 AM EDT) Anatomical Region Laterality Modality Lower Extremities, Knee Left Radiogra phic Imaging 08/22/2025 8:16 AM EDT Narrative 08/22/2025 8:17 AM EDT [place] [address] XRay Report Signed Patient: Noreen Wing MR#: [id number] : 1945 Acct:[id number] Age/Sex: 79 / F ADM Date: 08/22/25 Loc: HO.ED Attending Dr: Ordering Physician: Sarai Layton Date of Service: 08/22/25 Procedure(s): XR knee LT 4V Accession Number(s): [id number] cc: [facility]; Sarai Layton Reason for Exam: atraumatic knee pain CLINICAL HISTORY: atraumatic knee pain 4 view left knee Comparison: CR - XR KNEE LT 2V - 04/15/2025 02:38 AM EDT Findings: There is an ununited tibial apophyseal fracture with possible superimposed acute fracture. There is overlying prepatellar soft tissue swelling. No dislocations. No significant loss of joint space, osteophytes, or erosions. No joint effusion. No radiopaque foreign body. There is regional arterial calcification. IMPRESSION: 1. Tibial apophyseal fracture. This document has been electronically signed by: Francesco Lane MD on 08/22/2025 08:16:44 Dictated By: Francesco Lane MD Signed By: <Electronically signed by Francesco Lane MD in OV> 08/22/25816 DD/ 5 TD/TT: 08/22/25815 Psychology Lecturer: Procedure Note Donotnorahinterpreter, Image - 08/22/[address] [address] XRay Report Signed Patient: Noreen WingMR#: [id number] : 1945cct:[id number] Age/Sex: 79 / FADM Date: 08/22/25 Loc: HO.ED Attending Dr: Ordering Physician: Sarai Layton Date of Service: 08/22/25 Procedure(s): XR knee LT 4V Accession Number(s): [id number] cc: [facility]; Sarai Layton Reason for Exam: atraumatic knee pain CLINICAL HISTORY: atraumatic knee pain 4 view left knee Comparison: CR - XR KNEE LT 2V - 04/15/2025 02:38 AM EDT Findings: There is an ununited tibial apophyseal fracture with possible superimposed acute fracture. There is overlying prepatellar soft tissue swelling. No dislocations. No significant loss of joint space, osteophytes, or erosions. No joint effusion. No radiopaque foreign body. There is regional arterial calcification. IMPRESSION: 1. Tibial apophyseal fracture. This document has been electronically signed by: Francesco Lane MD on 08/22/2025 08:16:44 Dictated By: Francesco Lane MD Signed By: <Electronically signed by Francesco Lane MD in OV> 08/22/25816 DD/ 5 TD/TT: 08/22/25815 Psychology Lecturer: us [facility] External Provider IMG XR PROCEDURES Edited Result - Final * (ABNORMAL) Basic Metabolic Panel (08/18/2025 8:44 AM EDT) Only the most recent of2 resultswithin the time period is included. Sodium 137 135 - 145 mmol/L [facility] Potassium 4.6 3.3 - 5.1 mmol/L [facility] Chloride 101 96 - 108 mmol/L [facility] Carbon Dioxide 30(H) 22 - 29 mmol/L [facility] Anion Gap 11(L) 12 - 20 [facility] Urea Nitrogen (BUN) 19(H) 9 - 16 mg/dL [facility] Creatinine, Serum 0.94 0.5 - 1.4 mg/dL [facility] Estimated Glomerular Filt Rate 57 [facility] Comment:Chronic Kidney Disea se: Estimated GFR < 60 mL/min/1.97u3Udpxrp Kidney Disease: Estimated GFR < 15 mL/min/1.73m2 Glucose 94 60 - 115 mg/dL [facility] Calcium 9.3 8.4 - 10.2 mg/dL [facility] 08/18/2025 8:44 AM EDT 08/18/2025 8:44 AM EDT Generic External Data Provider LAB BLOOD ORDERAB LES Final Result Performing Organization Address City/[facility]/ZIP Co de Phone Number [facility] [address] [place] [address] [phone] * Culture, Urine, Routine (07/28/2025 9:44 PM EDT) Only the most recent of3 resultswithin the time period is included. Urine Urine specimen obtained by clean catch procedure / Unknown 07/28/2025 9:44 PM EDT 07/28/2025 9:44 PM EDT Comment:UACC Narrative [facility] - 07/30/2025 9:57 AM EDT Urine Culture Report Result Urine Culture 10,000 to 50,000 cfu/ml Urine Culture Mixed bacterial jann characteristic of Urine Culture urogenital contamination. Specimen Source: Urine clean catch us Generic External Data Provider LAB MICROBIOLOGY - GENERAL ORDERABLES Final Result Performing Organization Address City/[facility]/ZIP Co de Phone Number [facility] [address] [place] [address] [phone] * CTA Chest PE Protocal (07/28/2025 8:35 PM EDT) Only the most recent of2 resultswithin the time period is included. Anatomical Region Laterality Modality Body, Chest Computed Tomogra phy 07/28/2025 8:35 PM EDT Narrative 07/28/2025 8:36 PM EDT [address] [address] [address] Scan Report Signed Patient: Noreen Wing MR#: [id number] : 1945 Acct:[id number] Age/Sex: 79 / F ADM Date: 07/28/25 Loc: HO.ED Attending Dr: Ordering Physician: Cuco Amador Date of Service: 07/28/25 Procedure(s): CT angio chest PE protocol Accession Number(s): [id number] cc: Cuco Amador; Name,Nitin PIKE Report Number: [id number]: Total DLP = 311.00 mGy-cm Reason for [...] in OV> 07/28/252034 DD/ 34 TD/TT: 07/28/252034 Psychology Lecturer: Procedure Note Donotuseinterpreter, Image - 07/28/[address] [address] [address] Scan Report Signed Patient: Noreen WingMR#: [id number] : 3Acct:[id number] Age/Sex: 79 / FADM Date: 07/28/25 Loc: HO.ED Attending Dr: Ordering Physician: Cuco Amador Date of Service: 07/28/25 Procedure(s): CT angio chest PE protocol Accession Number(s): [id number] cc: Cuco Amador; Name,Nitin PIKE Report Number: [id number]: Total DLP = 311.00 mGy-cm Reason for [...] in OV> 07/28/252034 DD/ 34 TD/TT: 07/28/252034 Psychology Lecturer: [facility] External Provider IMG CT PROCEDURES Final Result * High Sensitivity Troponin I (07/28/2025 8:06 PM EDT) Only the most recent of4 resultswithin the time period is included. TROPONIN I HIGH SENSITIVITY <2.7 <3.5 - 17.0 ng/L [facility] Comment:The Mckeon high sens itivity Troponin-I results should beused in conjunction with other diagnostic information suchas ECG, clinical observations and information, and patientsymptoms to aid in the diagnosis of AR. 07/28/2025 8:06 PM EDT 07/28/2025 8:12 PM EDT us Generic External Data Provider LAB BLOOD ORDERAB LES Final Result Performing Organization Address City/[facility]/ZIP Co de Phone Number [facility] [address] [place] [address] [phone] * (ABNORMAL) Urinalysis, Complete, with Reflex to Culture (07/28/2025 8:06 PM EDT) Only the most recent of3 resultswithin the time period is included. Color Urine Yellow [facility] Appearance Urine Clear [facility] PH 6.0 5.0 - 9.0 [facility] Glucose Urine UA Negative Negative mg/dL [facility] Urine Blood Negative Negative [facility] Specific [place] - Urine >=1.030(H) 1.005 - 1.025 [facility] Urine Protein Negative Neg-Trace mg/dL [facility] Urine Ketones Negative Negative mg/dL [facility] Nitrite Urine Negative Negative [facility] Leukocyte Esterase Urine Small (1+)(A) Negative [facility] RBC Urine 0-2 0 - 2 /HPF [facility] Urine WBC 6-10(A) 0 - 5 /HPF [facility] Urine Squamous Epithelial Cell 0-2 0 - 2 /HPF [facility] Urine Bacteria None Seen None Seen [facility] Hyaline Casts, Urine 0-2 0 - 2 /LPF [facility] 07/28/2025 8:06 PM EDT 07/28/2025 8:12 PM EDT Narrative [facility] - 07/28/2025 9:26 PM EDT [id number], Clean Catch us Generic External Data Provider LAB URINE ORDERAB LES Final Result Performing Organization Address [facility]/ZIP Co de Phone Number [facility] [address] [place] [address] [phone] * CT Abdomen Pelvis w/ Contrast (07/28/2025 8:01 PM EDT) Anatomical Region Laterality Modality Body, Pelvis, Abdomen Computed T omography 07/28/2025 8:01 PM EDT Narrative 07/28/2025 8:03 PM EDT [address] [address] [address] Scan Report Signed Patient: Noreen Wing MR#: [id number] : 1945 Acct:[id number] Age/Sex: 79 / F ADM Date: 07/28/25 Loc: HO.ED Attending Dr: Ordering Physician: Cuco Amador Date of Service: 07/28/25 Procedure(s): CT abdomen pelvis w IV con Accession Number(s): [id number] cc: Cuco Amador; Name,Nitin PIKE Report Number: [id number]: Total DLP = 539.64 mGy-cm Reason for [...] in OV> 07/28/252001 DD/ 00 TD/TT: 07/28/252000 Psychology Lecturer: Procedure Note Donotuseinterpreter, Image - 07/28/[address] [place] [address] [address] Scan Report Signed Patient: Jennifer Wing#: [id number] : 3Acct:[id number] Age/Sex: 79 / FADM Date: 07/28/25 Loc: HO.ED Attending Dr: Ordering Physician: Cuco Amador Date of Service: 07/28/25 Procedure(s): CT abdomen pelvis w IV con Accession Number(s): [id number] cc: Cuco Amador; Name,Nitin PIKE Report Number: [id number]: Total DLP = 539.64 mGy-cm Reason for [...] in OV> 07/28/252001 DD/ 00 TD/TT: 07/28/252000 Psychology Lecturer: [facility] External Provider IMG CT PROCEDURES Final Result * (ABNORMAL) CBC auto differential (07/28/2025 5:01 PM EDT) Only the most recent of3 resultswithin the time period is included. White Blood Count 7.2 4.8 - 10.8 X10*3/uL [facility] Red Blood Count 3.71(L) 4.20 - 5.50 X10*6/uL [facility] Hemoglobin 10.6(L) 12.0 - 16.0 g/dl [facility] Hematocrit 31.4(L) 37.0 - 47.0 % [facility] Mean Corpuscular Volume 84.6 80.0 - 98.0 fL [facility] Mean Corpuscular Hemoglobin 28.6 27.0 - 33.0 pg [facility] Mean Corpuscular HGB Conc 33.8 31.0 - 35.0 g/dl [facility] Red Cell Distribution Width 14.0 11.0 - 16.0 % [facility] Platelet Count 245 160 - 400 X10*3/uL [facility] Mean Platelet Volume 8.8(L) 9.4 - 12.3 fL [facility] Neutrophils Percent Auto 57.8 45 - 73 % [facility] Imm Gran Pct Auto 0.3 0.0 - 0.4 % [facility] Lymphocytes Percent Auto 27.2 20 - 40 % [facility] Monocytes Percent Auto 12.5(H) 2 - 11 % [facility] Eosinophils Percent Auto 1.8 0 - 4 % [facility] Basophils Percent Auto 0.4 0 - 2 % [facility] NRBC Pct Auto 0.0 0.0 - 0.2 /100WBC [facility] Neutrophils Absolute Auto 4.2 2.0 - 8.3 x10*3/uL [facility] Imm Gran Abs Auto 0.02 0.00 - 0.03 X10*3/uL [facility] Lymphocytes Absolute Auto 2.0 1.2 - 4.9 X10*3/uL [facility] Monocytes Absolute Auto 0.9 0.1 - 1.2 X10*3/uL [facility] Eosinophils Absolute Auto 0.1 0.0 - 0.4 X10*3/uL [facility] Basophils Absolute Auto 0.0 0.0 - 0.2 X10*3/uL [facility] NRBC Abs Auto 0.000 0.0 - 0.012 X10*3/uL [facility] 07/28/2025 5:01 PM EDT 07/28/2025 5:05 PM EDT us Generic External Data Provider LAB BLOOD ORDERAB LES Final Result Performing Organization Address City/[facility]/ZIP Co de Phone Number [facility] [address] [place] [phone] * Partial Thromboplastin Time, Activated (APTT) (07/28/2025 5:01 PM EDT) Partial Thromboplastin Time 31.4 26.7 - 34.1 SEC [facility] 07/28/2025 5:01 PM EDT 07/28/2025 5:05 PM EDT Generic External Data Provider LAB BLOOD ORDERAB LES Final Result Performing Organization Address [facility] Co de Phone Number [facility] [address] [place] [phone] * (ABNORMAL) Prothrombin Time-INR (07/28/2025 5:01 PM EDT) Prothrombin Time 14.3(H) 10.9 - 12.4 SEC [facility] INTERNATIONAL NORM RATIO 1.2(H) 0.9 - 1.1 [facility] Comment:INTERNATIONAL NORMAL IZED RATIO (INR) REFERENCE [...] Provider LAB BLOOD ORDERAB LES Final Result [facility] [address] [place] [address] [phone] * Lipase (07/28/2025 5:01 PM EDT) Pathologist [facility] Lipase 31 8 - 78 U/L [facility] 07/28/2025 5:01 PM EDT 07/28/2025 5:05 PM EDT Generic External Data Provider LAB BLOOD ORDERAB LES Final Result Performing Organization Address City/[facility]/ZIP Co de Phone Number [facility] [address] [place] [phone] * (ABNORMAL) Comprehensive Metabolic Panel (07/28/2025 5:01 PM EDT) Only the most recent of2 resultswithin the time period is included. Pathologist [facility] Sodium 140 135 - 145 mmol/L [facility] Potassium 4.1 3.3 - 5.1 mmol/L [facility] Chloride 104 96 - 108 mmol/L [facility] Carbon Dioxide 30(H) 22 - 29 mmol/L [facility] Anion Gap 10(L) 12 - 20 [facility] Urea Nitrogen (BUN) 24(H) 9 - 16 mg/dL [facility] Creatinine, Serum 1.03 0.5 - 1.4 mg/dL [facility] Creatinine Clr Calc Pharmacy 50.1 [facility] Comment:Provided height and weight: 172.72 cm,89.5 kg.eGFR (calculated from the MDRD study equation) and eCrCl(calculated from the Cockcroft-Gault equation) are based ondifferent parameters and may not yield comparable results.If eCrCl result is absurd, please check patient'sheight/weight. Estimated Glomerular Filt Rate 51 [facility] Comment:Chronic Kidney Disea se: Estimated GFR < 60 mL/min/1.85d7Vvcwtv Kidney Disease: Estimated GFR < 15 mL/min/1.73m2 Glucose 146(H) 60 - 115 mg/dL [facility] Calcium 8.4 8.4 - 10.2 mg/dL [facility] Bilirubin, Total 0.2 0.0 - 1.0 mg/dL [facility] Aspartate Amino Transferase 34(H) 5 - 31 U/L [facility] Alanine Aminotransferase 23 0 - 31 U/L [facility] Total Protein 7.3 6.5 - 8.0 g/dL [facility] Albumin Level 4.0 3.5 - 5.0 g/dL [facility] Alkaline Phosphatase 72 39 - 117 U/L [facility] 07/28/2025 5:01 PM EDT 07/28/2025 5:05 PM EDT us Generic External Data Provider LAB BLOOD ORDERAB LES Final Result [facility] [address] [place] [phone] * POCT HGB A1C (01/10/2025 11:02 AM EST) Hemoglobin A1C 5.1 4.0 - 6.0 % QC Media Lot # [id number] Lot# Expiration Date ,222,056 Blood 01/10/2025 11:0 2 AM EST us [...] LDL-C. Jack SS et al. JITENDRA. 2013;310(19): 5516-5145 (http://education.N2Care/faq/OPF535) Non-HDL Cholesterol 88 <130 mg/dL (calc) CONVERTED [...] Most Recently Relevant to Health Maintenance Insurance [id number] LONG-TERM OPTIONS (O D-SNP) [place] [id number] Care Teams Traction Power Engineer Relationship Specialty Start Date End Date Name, MD Nitin [address] [place] [phone] PCP - General Family Medicine 08/26/17 [facility] 09/01/24
--- OUTSIDE RECORDS SUMMARY | 2025-08-26 18:20 | XMS_ITS | Encounter Summary ---
Author Organization [employer] Address [address] [facility] [address] [place] [address] Care Team Providers Care Manager Inpatient Name Role Phone Name, Nitin PIKE Primary Care Provider [phone] Encounter Details Date Type Department Care Team (Late st Contact Info) Description 08/22/2025 Orders Only [facility] External Provider, [facility] Social History Tobacco Use Types Packs/Day Years [...] Description 09/06/2025 1:30 PM EDT Office Visit [facility] [address] [place] [phone] Thea Warren FNP [address] [place] [phone] 11/07/2025 10:00 AM EST Office Visit [address] [address] Nitin Echevarria MD [address] [place] [address] [phone] documented as of this encounter Procedures Procedure Name Priority Date/Time Associated Diagnosis Comments XR KNEE 4+ VIEWS LEFT Routine 08/22/2025 8:16 AM EDT documented in this encounter Results * XR Knee 4+ Views Left (08/22/2025 8:16 AM EDT) Anatomical Region Laterality Modality Lower Extremities, Knee Left [facility] 08/22/2025 8:16 AM EDT Narrative 08/22/2025 8:17 AM EDT [address] [address] XRay Report Signed Patient: Noreen Wing MR#: [id number] : 1945 Acct:[id number] Age/Sex: 79 / F ADM Date: 08/22/25 Loc: HO.ED Attending Dr: Ordering Physician: Sarai Layton Date of Service: 08/22/25 Procedure(s): XR knee LT 4V Accession Number(s): [id number] cc: [facility]; Sarai Layton Reason for Exam: atraumatic [...] in OV> 08/22/25816 DD/ 5 TD/TT: 08/22/25815 Hotel General Manager: Procedure Note Donotuseinterpreter, Image - 08/22/2025 [place] [address] XRay Report Signed Patient: Noreen WingMR#: [id number] : 1945cct:[id number] Age/Sex: 79 / FADM Date: 08/22/25 Loc: HO.ED Attending Dr: Ordering Physician: Sarai Layton Date of Service: 08/22/25 Procedure(s): XR knee LT 4V Accession Number(s): [id number] cc: [facility]; Sarai Layton Reason for Exam: atraumatic [...] MD Signed By: <Electronically signed by Francesco Laen MD in OV> 08/22/25816 DD/ 5 TD/TT: 08/22/25815 Hotel General Manager: [facility] External Provider IMG XR PROCEDURES Edited Result - Final documented in this encounter Visit Diagnoses Not on filedocumented in this encounter Additional Health Concerns Assessment Noted Time PHQ-9 Depression Total Score: 3 04/29/20 9:41 AM EDT documented as of this encounter Care Teams Manager Inpatient Relationship Specialty Start Date End Date Name, MD Nitin [address] [place] [address] PCP - General Family Medicine 08/26/17 [facility] 09/01/24 documented as of this encounter
--- OUTSIDE RECORDS SUMMARY | 2025-08-26 18:20 | XMS_ITS | Encounter Summary ---
Author Organization [employer] Address 75 [facility] [address] [place] [address] Care Team Providers Care Cob Sawyer Name Role Phone Name, Nitin PIKE Primary Care Provider [phone] Reason for Visit * Reason Comments Med Refill Encounter Details Date Type Department Care Team (Late st Contact Info) Description 07/25/2025 Refill [facility] MED & PEDS [address] [place], [place] [phone] Name, MD Nitin [address] [place] [address] Social History Tobacco Use Types Packs/Day Years [...] Description 09/06/2025 1:30 PM EDT Office Visit [facility] MEDICINE [address] [place] [address] Thea Warren FNP [address] [place] [address] 11/07/2025 10:00 AM EST Office Visit [facility] MEDICINE [address] [place] [address] NameNitin MD [address] [place] [address] documented as of this encounter Visit Diagnoses Not on filedocumented in this encounter Additional Health Concerns Assessment Noted Time PHQ-9 Depression Total Score: 3 04/29/20 25 9:41 AM EDT documented as of this encounter Care Teams Cob Sawyer Relationship Specialty Start Date End Date Nitin Echevarria MD [address] [place] [address] PCP - General Family Medicine 08/26/17 [facility] 09/01/24 documented as of this encounter
--- OUTSIDE RECORDS SUMMARY | 2025-08-26 18:20 | XMS_ITS | Encounter Summary ---
Author Organization [employer] Address 75 [facility] [address] [place] [address] Care Team Providers Care Stereotyper Name Role Phone Name, Nitin PIKE Primary Care Provider [phone] Reason for Visit * Reason Comments Med Refill Encounter Details Date Type Department Care Team (Late st Contact Info) Description 08/16/2024 Refill [facility] CHC MED & PEDS [address] [place], [place] [phone] Name, MD Nitin [address] [place] [address] Heartburn Social History Tobacco Use Types Packs/Day [...] Description 09/06/2025 1:30 PM EDT Office Visit [facility] MEDICINE [address] [place] [address] Thea Warren FNP [address] [place] [address] 11/07/2025 10:00 AM EST Office Visit [address] [address] NameNitin MD [address] [place] [address] documented as of this encounter Visit Diagnoses Diagnosis Heartburn documented in this encounter Additional Health Concerns Assessment Noted Time PHQ-9 Depression Total Score: 6 02/13/20 24 9:14 AM EDT documented as of this encounter Care Teams Stereotyper Relationship Specialty Start Date End Date Nitin Echevarria MD [address] [place] [address] PCP - General Family Medicine 08/26/17 [facility] 09/01/24 documented as of this encounter
--- OUTSIDE RECORDS SUMMARY | 2025-08-26 18:21 | XMS_ITS | Encounter Summary ---
Author Organization [employer] Address 75 [facility] [address] [place] [address] Care Team Providers Care Shoemaking Finisher Name Role Phone Name, Nitin PIKE Primary Care Provider [phone] Reason for Visit * Reason Onset Date Comments triage 12/18/2022 Encounter Details Date Type Department Care Team ([facility] st Contact Info) Description 12/18/2022 Telephone [facility] MEDICINE [address] [place], [place] [phone] Name, MD Nitin [address] [place] [address] triage Social History Tobacco Use Types Packs/Day [...] 12/18/2022 2:35 PM EST Called pt. Via [employer] bilingual interpreter [id number] Eduardo. Pt. States that she has a [...] phone. Please reach out to pt. With Mohawk speaking another time to see what her [...] Description 09/06/2025 1:30 PM EDT Office Visit [address] [address] Thea Warren FNP [address] [place] [address] 11/07/2025 10:00 AM EST Office Visit [address] [address] Name, MD Nitin [address] [place] [address] documented as of this encounter Visit Diagnoses Not on filedocumented in this encounter Care Teams Shoemaking Finisher Relationship Specialty Start Date End Date Name, MD Nitin [address] [place] [address] PCP - General Family Medicine 08/26/17 [facility] 09/01/24 documented as of this encounter
--- OUTSIDE RECORDS SUMMARY | 2025-08-26 18:21 | XMS_ITS | Encounter Summary ---
Author Organization [employer] Address 75 [facility] 7t [place] [address] Care Team Providers Care Core Placer Name Role Phone Name, Nitin PIKE Primary Care Provider [phone] Reason for Visit * Reason Comments Med Refill Encounter Details Date Type Department Care Team (Late Contact Info) Description 03/02/2023 Refill [facility] MEDICINE 230 [place] [address] Karely Patiño MD [address] [place], [place] [phone] Social History Tobacco Use Types Packs/Day Years [...] Office Visit [facility] MEDICINE 230 [place] [address] Thea Warren FNP 230 [place], [place] [phone] 11/07/2025 10:00 AM EST Office Visit [facility] MEDICINE [address] [place] [address] Name, [place] [address] documented as of this encounter Visit Diagnoses Not on filedocumented in this encounter Care Teams Core Placer Relationship Specialty Start Date End Date Name, [place] [address] PCP - General Family Medicine 08/26/17 [facility] 09/01/24 documented as of this encounter
--- OUTSIDE RECORDS SUMMARY | 2025-08-26 18:21 | XMS_ITS | Encounter Summary ---
Author Organization [employer] Address 75 [facility] 7[address] [place] [address] Care Team Providers Care Computer Systems Administrator Name Role Phone Name, Nitin PIKE Primary Care Provider Reason for Visit * Reason Onset Date Comments FYI 01/21/2024 ER Follow-up 01/21/2024 Encounter Details Date Type Department Care Team ([facility] st Contact Info) Description 01/21/2024 Telephone [facility] MEDICINE [address] [place], [place] [phone] Name, MD Nitin [address] [place] [address] FYI; ER Follow-up Social History Tobacco Use [...] - 01/21/2024 1:54 PM EDT Message from [facility] ED noted. [facility] note sent to medical records. PCP does not rx Trazodone. Pt to f/u with psych prescriber. Pt is scheduled for f/u with pcp 02/13/24. * Telephone Encounter - Janette Huitron - 01/21/2024 9:45 AM EDT Tc from nata with [facility] ED calling in regards to pt. States pt was seen today for anxiety and is requesting trazodone. Will discharge pt with no medication change. Would also like to advise provider, pt was seen at [facility] on 01/17 for anxiety/insomnia as well documented in this encounter Plan of Treatment Upcoming Encounters Date Type Department Care Team (Late st Contact Info) Description 09/06/2025 1:30 PM EDT Office Visit [facility] MEDICINE [address] [place] [address] Thea Warren FNP 230 [place] [address] 11/07/2025 10:00 AM EST Office Visit [facility] MEDICINE [address] [place] [address] Name, MD Nitin [address] [place] [address] documented as of this encounter Visit Diagnoses Not on filedocumented in this encounter Additional Health Concerns Assessment Noted Time PHQ-9 Depression Total Score: 12 023 9:37 AM EDT documented as of this encounter Care Teams Computer Systems Administrator Relationship Specialty Start Date End Date Name, MD Nitin [address] [place] [address] PCP - General Family Medicine 08/26/17 [facility] 09/01/24 documented as of this encounter
--- OUTSIDE RECORDS SUMMARY | 2025-08-26 18:21 | XMS_ITS | Data Portability ---
Author Organization [employer] [facility], [facility] Address [address] [place] [address] Care Team Providers Care Printer'S Assistant Name Role Phone HIM CCA Primary Care [...] Last Updated DateTime 18 /min 74 /min 33794.9 28 g 98 % 98 % 100 [degF] 130/66 mm[Hg] Not Available [employer] 15:33:18 Social History None recorded. Functional Status None recorded. Mental Status None recorded. Family History Nothing Reported. Medical History No medical history recorded. Gynecological HistoryNo gynecological history recorded. 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 She called today because she insists on having the catheter removed. It was removed by the golf cart assembler with the understand ing that if she can't void, she will need to go the the ER. The patient agreed with this plan. [id number] Rohit Benton MD Main - [address] [phone] 02/06/2024 15:33:16 02/09/2024 18:20:42 Chronic retention of urine [id number] R33.8 Has bunn catheter which was recently [...] Pinzon Member ID Guarantor Name 02/09/2024 1 [facility] - DOS ON OR AFTER 2023 - DUAL ELIGIBLE - LONGTERM OPTIONS AND ONE CARE (MEDICARE REPLACEMENT/ADV ANTAGE - HMO) Noreen Wing [id number] Noreen Wing Notes Date Note Type Note Provider Name and Address Organization Details Recorded Time 01/31/2024 text/html ROS as noted in the HPI CRC Nurse Triage Notes (Joana Dominique): Reason For Request: Bunn catheter malfunction/painful Chief Complaints: UTI/Pyelonephritis, Equipment-Related Allergies: No Known Comments: Kittitian speaking member who denies any PMH, denies [...] KAYE Verified name//address Epifanio Mcintyre MD [address] [facility],[address], [place], [address], BBE 01/31/2024 19:05:57 02/06/2024 text/html ROS as noted in the HPI HPI: Member asked for HV tomorrow after 10 AM if possible. Treated at the [facility] ER today, for F/u leaking, stated is [...] son Jame Wing. Member is 78 y/o Kitt[place] speaking female who [place] [facility] with her son. Member has multiple [...] sees her BH counselor weekly and Prescriber PLASTER MACHINE OPERATOR [place] monthly if needed or every 2-3 months, .................... .................... .................... .................... .................... .................... .................... . CRC Nurse Triage Notes (Zafar Irving): Comments: Reviewed HPI .................... .................... .................... .................... .................... .................... .................... . Director Broadcast Note From [place]: Pt sts doesn t know why she has a bunn cath s he has appt on Friday with urologist. Pt denies urinary pain lower abdominal pain CVa pain chest pain fever NVd. Pt was resting comfortably on arrival. Pt understands she will know more what s going on with her during appt Friday. Baseline vitals assessed. Vitals stable. Urine clear and light yellow. [facility] contacted and advised pt to rest and advised to make sure she goes to appt Friday. Pt son was used as weight loss consultant. Pt education on signs indicating the ER. Director Broadcast Allergies: Clindamycin .................... .................... .................... .................... .................... .................... .................... . Disposition: Fulfilled Rohit Benton MD [address] [facility],[address], [place], [address], BBE 02/06/2024 17:58:19 OBGyn Episode No OBEpisode recorded.
--- OUTSIDE RECORDS SUMMARY | 2025-08-26 18:21 | XMS_ITS | Encounter Summary ---
Author Organization [employer] Address 75 [facility] 7t [place] [address] Care Team Providers Care Hand Compositor Name Role Phone Name, Nitin PIKE Primary Care Provider [phone] Reason for Visit * Reason Onset Date Comments Verbal Orders 01/02/2024 Encounter Details Date Type Department Care Team ([facility] st Contact Info) Description 01/02/2024 Telephone [facility] MEDICINE [address] [place], [place] [phone] Name, MD Nitin [address] [place] [address] Verbal Orders Social History Tobacco Use Types [...] No answer. LVM to call back on [phone]. * Telephone Encounter - Melany Santos RN - 01/06/2024 10:25 AM EST Please review and advise for below request. * Telephone Encounter - Deana Bazzi - 01/02/2024 3:44 PM EST Tc from [facility] with S requesting verbal orders for discharge pt from Occupational Therapy, due to pt refuses services, please contact Josseline at [phone]. documented in this encounter Plan of Treatment Upcoming Encounters Date Type Department Care Team (Late st Contact Info) Description 09/06/2025 1:30 PM EDT Office Visit [facility] MEDICINE [address] [place] [address] Thea Warren FNP [address] [place] [address] 11/07/2025 10:00 AM EST Office Visit [address] [address] Name, MD Nitin [address] [place] [address] documented as of this encounter Visit Diagnoses Not on filedocumented in this encounter Additional Health Concerns Assessment Noted Time PHQ-9 Depression Total Score: 12 023 9:37 AM EDT documented as of this encounter Care Teams Hand Compositor Relationship Specialty Start Date End Date NameNitin MD [address] [place] [address] [phone] PCP - General Family Medicine 08/26/17 [facility] 09/01/24 documented as of this encounter
--- OUTSIDE RECORDS SUMMARY | 2025-08-26 18:21 | XMS_ITS | Encounter Summary ---
Author Organization [employer] Address 75 [facility] 7[address] [place] [address] Care Team Providers Care Learning Support Aide Name Role Phone NameNitin MD Primary Care Provider [phone] Encounter Details Date Type Department Care Team ([facility] Contact Info) Description 01/06/2023 Orders Only [facility] CHC MED & PEDS [address] [place], [place] [phone] Lisha Kelly LPN Social History Tobacco Use [...] Description 09/06/2025 1:30 PM EDT Office Visit [facility] MEDICINE [address] [place] [phone] Thea Wraren FNP [address] [place], [place] [phone] 11/07/2025 10:00 AM EST Office Visit [address] [phone] Name, MD Nitin [address] [place] [address] documented as of this encounter Visit Diagnoses Not on filedocumented in this encounter Care Teams Learning Support Aide Relationship Specialty Start Date End Date Name, MD Nitin [address] [place] [address] PCP - General Family Medicine 08/26/17 [facility] 09/01/24 documented as of this encounter
--- OUTSIDE RECORDS SUMMARY | 2025-08-26 18:21 | XMS_ITS | Encounter Summary ---
Author Organization [employer] Address 75 [facility] 7[address] [place] [address] Care Team Providers Care Permit Coordinator Name Role Phone Name, Nitin PIKE Primary Care Provider [phone] Reason for Visit * Reason Onset Date Comments Verbal Orders 12/15/2023 Encounter Details Date Type Department Care Team ([facility] st Contact Info) Description 12/15/2023 Telephone [facility] MEDICINE 230 [place], [place] [phone] Name, MD Nitin [address] [place] [address] Verbal Orders Social History Tobacco Use Types [...] 12:03 PM EST Tc from [facility] with [employer] requesting verbal order to see pt 2 times a week for 4 weeks for Occupational Therapy, please contact Josseline at [phone] documented in this encounter Plan of Treatment Upcoming Encounters Date Type Department Care Team (Late st Contact Info) Description 09/06/2025 1:30 PM EDT Office Visit [address] [address] Thea Warren FNP [address] [place] [address] 11/07/2025 10:00 AM EST Office Visit [address] [address] Name, MD Nitin [address] [place] [address] documented as of this encounter Visit Diagnoses Not on filedocumented in this encounter Additional Health Concerns Assessment Noted Time PHQ-9 Depression Total Score: 12 023 9:37 AM EDT documented as of this encounter Care Teams Permit Coordinator Relationship Specialty Start Date End Date Nitin Echevarria MD [address] [place] [address] PCP - General Family Medicine 08/26/17 [facility] 09/01/24 documented as of this encounter
== END 2025-08-26 16:28 | disposition home or self-care (01) ==
PROVIDERS: Emergency Provider Emergency Medicine
DX: M25.562 Pain in left knee (principal); R26.2 Difficulty in walking, not elsewhere classified; Z79.899 Other long term (current) drug therapy; Z86.711 Personal history of pulmonary embolism; Z79.01 Long term (current) use of anticoagulants
CPT/HCPCS: 73564; 99283; 99284

== ENCOUNTER → 2025-08-26 15:28 | Outpatient (BNV) | payer OTHER, SELFPAY | PROVIDERS: Emergency Provider Emergency Medicine; Visit Provider Radiology Diagnostic Radiology | DX: M25.562 Pain in left knee (principal) | CPT/HCPCS: 73564 ==

== ENCOUNTER 2025-08-29 15:51 | Emergency (ER) | payer OTHER, SELFPAY ==
[2025-08-29 16:21] VITALS: BP 134/73; PULSE 77; O2SAT 97
[2025-08-29 16:23] VITALS: BP 144/67; PULSE 79; RESP 18; TEMP 36.6; O2SAT 98; BMI 27.4
--- NOTE | 2025-08-29 16:27 | ED.GENADULT ---
HPI - General Adult General Chief complaint: General Medical Stated complaint: ?low sodium Time Seen by Provider: 08/29/25 17:32 Source: patient, RN notes reviewed and old records reviewed Mode of arrival: EMS Limitations: language barrier History of Present Illness ED Provider: Aniyah HPI narrative: 79-year-old female presents for evaluation of ?somebody told me to come back because my sodium was low. ? The patient does have a history of hyponatremia. She denies any symptoms including lightheadedness, dizziness. Denies any nausea vomiting or diarrhea Denies any pain, fevers or chills pain She reports that she is only here because somebody told her to come back to check her sodium Related Data Home Medications ?Medication ?Instructions ?Recorded ?Confirmed omeprazole 20 mg tablet,delayed 20 mg PO DAILY@0630 08/09/20 08/22/25 release aspirin 81 mg tablet,delayed 81 mg PO QAM 01/28/24 08/22/25 release bisacodyl 5 mg tablet,delayed 5 mg PO DAILY PRN constipation 01/28/24 08/22/25 release ferrous sulfate 325 mg (65 mg 325 mg PO DAILY 01/28/24 08/22/25 iron) tablet (FeroSul) melatonin 10 mg tablet,extended 10 mg PO BEDTIME PRN Insomnia 01/28/24 08/22/25 release multivitamin 1 tab PO QAM 01/28/24 08/22/25 rosuvastatin 20 mg tablet 20 mg PO BEDTIME 01/28/24 08/22/25 trazodone 50 mg tablet 50 mg PO BEDTIME 01/28/24 08/22/25 amlodipine 10 mg tablet 10 mg PO DAILY 02/09/24 08/22/25 acetaminophen 500 mg tablet 500 mg PO Q8H PRN pain 08/09/24 08/22/25 cholecalciferol (vitamin D3) 25 25 mcg PO DAILY 08/20/24 08/22/25 mcg (1,000 unit) tablet sertraline 100 mg tablet 100 mg PO DAILY 03/16/25 08/22/25 apixaban 5 mg tablet 5 mg PO BID 08/22/25 08/22/25 clonazepam 0.5 mg tablet 0.5 mg PO TID 08/22/25 08/22/25 fluticasone propionate 50 2 spray intranasal DAILY PRN 08/22/25 08/22/25 mcg/actuation nasal Allergic Symptoms spray,suspension (Flonase Allergy Relief) hydroxyzine HCl 25 mg tablet 10 mg PO DAILY PRN anxiety 08/22/25 08/22/25 ketotifen fumarate 0.025 % (0.035 1 drp ophthalmic (eye) BID PRN 08/22/25 08/22/25 %) eye drops allergies mirtazapine 45 mg tablet 45 mg PO BEDTIME 08/22/25 08/22/25 valsartan 160 mg tablet 160 mg PO QPM 08/22/25 08/22/25 Previous Rx's ?Medication ?Instructions ?Recorded metoprolol succinate 50 mg 50 mg PO DAILY #90 tabs 09/28/20 tablet,extended release 24 hr docusate sodium 100 mg capsule 200 mg (2 x 100 mg) PO BID #20 caps 02/24/25 (Colace) ibuprofen 200 mg tablet 200 mg PO Q6H PRN pain #20 tabs 07/24/25 meclizine 12.5 mg tablet 12.5 mg PO TID PRN dizziness or 07/26/25 vertigo #30 tabs Allergies Allergy/AdvReac Type Severity Reaction Status Date / Time penicillin G (Penicillin G) Allergy Severe ITCHY/RASH Verified 08/29/25 16:25 Sulfa (Sulfonamide Allergy Severe ITCHY,RASH, Verified 08/29/25 16:25 Antibiotics) (Sulfa rash (Sulfonamides)) trimethoprim (From Bactrim) Allergy Severe HIVES Verified 08/29/25 16:25 Penicillins Allergy Intermediate Hives Verified 08/29/25 16:25 sulfamethoxazole (From Allergy Mild Hives Verified 08/29/25 16:25 Bactrim) Review of Systems Review of Systems: Yes all other systems are reviewed and are negative PMF Past Medical History 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 or 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 (rail detector car operator) Alcohol intake: never Patient Tobacco Use Status: Never used Tobacco Advance Directives: Yes Advance Directives on File: Yes Advance Directives Date on File: 01/28/24 Do you have a plan to hurt others: No Plan service: No Physical Exam ED Vital Signs: Vital Signs - 24 hr 08/29/25 16:23 Temperature 98 F Pulse Rate 79 Respiratory Rate 18 Blood Pressure 144/67 H Pulse Oximetry 98 Oxygen Delivery Method Room Air BMI result Body Mass Index 27.4 Const General: healthy appearing, comfortable, no acute distress, alert and awake Nutritional Appearance: well nourished Orientation/consciousness: patient oriented x3 HENMT Head: Yes normocephalic and Yes atraumatic Eyes Eyelids: Yes eyelids normal Conjunctivae: conjunctivae normal Sclerae: sclerae normal Corneas: corneas normal Pupils: Equal, round and reactive pupils present EOM: EOMs intact bilaterally Neck Neck: Yes full ROM Resp Effort & Inspection: normal respiratory effort, able to speak in complete sentences and not labored Skin General skin exam: no rashes or lesions noted Neuro General: patient oriented x3 Cranial nerves: Yes CN's II-XII intact bilaterally, Yes Equal, round and reactive pupils present and Yes Bilaterally intact EOM present Cognition (Neuro): normal cognition Extrem Other: Moving all extremities well without any obvious deformities Course Course Course Narrative: RME, this is a rapid medical exam performed by Ellis Dill please refer to primary provider for complete H&P- 79-year-old female presents for evaluation of ?low sodium. ? She reports that she was called from this hospital and told to return for low sodium. It appears that the last sodium we have on record was within normal limits. We will recheck her sodium. No lightheadedness, dizziness, unsteady gait Medical Decision Making Medical Decision Making MDM Narrative: 79-year-old female presents for evaluation of low sodium. She has a history of this. I do not see any recent record of a low-sodium or the anybody from this hospital called her. We will recheck her sodium Differential Diagnosis Differential Diagnoses: The differential diagnosis associated with the presentation includes Hyponatremia Malingering Anxiety Lab Data MDM Lab Attestation statement: I reviewed the patient's lab results. Patient's sodium is within normal limits at 135. This was discussed with her and she is stable for discharge 08/29/25 16:43 08/29/25 16:43 Labs: Lab Results 08/29/25 Range/Units 16:43 WBC 7.7 (4.8-10.8) X10*3/uL RBC 4.05 L (4.20-5.50) X10*6/uL Hgb 11.2 L (12.0-16.0) g/dl Hct 33.8 L (37.0-47.0) % MCV 83.5 (80.0-98.0) fL MCH 27.7 (27.0-33.0) pg MCHC 33.1 (31.0-35.0) g/dl RDW 13.8 (11.0-16.0) % Plt Count 276 (160-400) X10*3/uL MPV 8.5 L (9.4-12.3) fL Immature Gran % (Auto) 0.3 (0.0-0.4) % Neut % (Auto) 55.9 (45-73) % Lymph % (Auto) 30.6 (20-40) % Williamson % (Auto) 10.2 (2-11) % Eos % (Auto) 2.1 (0-4) % Baso % (Auto) 0.9 (0-2) % Lymph # (Auto) 2.4 (1.2-4.9) X10*3/uL Williamson # (Auto) 0.8 (0.1-1.2) X10*3/uL Eos # (Auto) 0.2 (0.0-0.4) X10*3/uL Baso # (Auto) 0.1 (0.0-0.2) X10*3/uL Abs Immat Gran (auto) 0.02 (0.00-0.03) X10*3/uL Absolute Neuts (auto) 4.3 (2.0-8.3) x10*3/uL Absolute Nucleated RBC 0.000 (0.0-0.012) X10*3/uL Nucleated RBC % (auto) 0.0 (0.0-0.2) /100WBC Sodium 135 (135-145) mmol/L Potassium 4.4 (3.3-5.1) mmol/L Chloride 99 (96-108) mmol/L Carbon Dioxide 29 (22-29) mmol/L Anion Gap 11 L (12-20) BUN 21 H (9-16) mg/dL Creatinine 0.95 (0.5-1.4) mg/dL Estim Creat Clear Calc 52.0 Estimated GFR 56 Random Glucose 101 (60-115) mg/dL Calcium 9.0 (8.4-10.2) mg/dL Magnesium 2.0 (1.6-2.6) mg/dL Discharge Plan Discharge Clinical Impression: Anxiety Patient Disposition: Home, Self-Care Instructions: Anxiety (ED) Additional Instructions: Your sodium level was 135 which is within normal limits. You should not change any of your medications. Follow up with your doctor Prescriptions: No Action metoprolol succinate 50 mg tablet extended release 24 hr 50 mg PO DAILY Qty: 90 2RF omeprazole 20 mg Tablet,Delayed Release (Dr/Ec) 20 mg PO DAILY@0630 meclizine 12.5 mg tablet 12.5 mg PO TID PRN (Reason: dizziness or vertigo) Qty: 30 0RF trazodone 50 mg tablet 50 mg PO BEDTIME ferrous sulfate [FeroSul] 325 mg (65 mg iron) tablet 325 mg PO DAILY bisacodyl 5 mg tablet,delayed release (DR/EC) 5 mg PO DAILY PRN (Reason: constipation) rosuvastatin 20 mg tablet 20 mg PO BEDTIME aspirin 81 mg tablet,delayed release (DR/EC) 81 mg PO QAM multivitamin Tablet 1 tab PO QAM melatonin 10 mg tablet extended release 10 mg PO BEDTIME PRN (Reason: Insomnia) cholecalciferol (vitamin D3) 25 mcg (1,000 unit) tablet 25 mcg PO DAILY acetaminophen 500 mg tablet 500 mg PO Q8H PRN (Reason: pain) docusate sodium [Colace] 100 mg capsule 200 mg PO BID Qty: 20 0RF ibuprofen 200 mg tablet 200 mg PO Q6H PRN (Reason: pain) Qty: 20 0RF ketotifen fumarate 0.025 % (0.035 %) drops 1 drp ophthalmic (eye) BID PRN (Reason: allergies) mirtazapine 45 mg tablet 45 mg PO BEDTIME clonazepam 0.5 mg tablet 0.5 mg PO TID hydroxyzine HCl 25 mg tablet 10 mg PO DAILY PRN (Reason: anxiety) fluticasone propionate [Flonase Allergy Relief] 50 mcg/actuation spray,suspension 2 spray intranasal DAILY PRN (Reason: Allergic Symptoms) Rx Instructions: administer into each nostril apixaban 5 mg tablet 5 mg PO BID valsartan 160 mg tablet 160 mg PO QPM sertraline 100 mg tablet 100 mg PO DAILY amlodipine 10 mg tablet 10 mg PO DAILY Print Language: Puerto Rican
[2025-08-29 16:51] LABS: MANUAL DIFF FLAG NO
[2025-08-29 16:52] LABS: Hematocrit 33.8 % (37.0-47.0); Hemoglobin 11.2 g/dl (12.0-16.0); Imm Gran Abs Auto 0.02 X10*3/uL (0.00-0.03); Imm Gran Pct Auto 0.3 % (0.0-0.4); Lymphocytes Absolute Auto 2.4 X10*3/uL (1.2-4.9); Mean Corpuscular HGB Conc 33.1 g/dl (31.0-35.0); Mean Corpuscular Hemoglobin 27.7 pg (27.0-33.0); Mean Corpuscular Volume 83.5 fL (80.0-98.0); NRBC Abs Auto 0.000 X10*3/uL (0.0-0.012); NRBC Pct Auto 0.0 /100WBC (0.0-0.2); Platelet Count 276 X10*3/uL (160-400); Red Blood Count 4.05 X10*6/uL (4.20-5.50); White Blood Count 7.7 X10*3/uL (4.8-10.8)
[2025-08-29 17:12] LABS: Anion Gap 11 (12-20); Blood Urea Nitrogen 21 mg/dL (9-16); Calcium 9.0 mg/dL (8.4-10.2); Carbon Dioxide 29 mmol/L (22-29); Chloride 99 mmol/L (96-108); Creatinine Clr Calc Pharmacy 52.0; Estimated Glomerular Filt Rate 56; Magnesium 2.0 mg/dL (1.6-2.6); Potassium 4.4 mmol/L (3.3-5.1); Sodium 135 mmol/L (135-145)
[2025-08-29 18:08] VITALS: BP 144/67; PULSE 79; RESP 18; TEMP 36.6; O2SAT 98
--- OUTSIDE RECORDS SUMMARY | 2025-08-29 20:52 | XMS_ITS | Encounter Summary ---
Author Organization [email or web address] Address [address] [facility] [address] [place] [address] Care Team Providers Care Firer Bisque Kiln Name Role Phone Name, Nitin PIKE Primary Care Provider [phone] Reason for Visit * Reason Comments Med Refill Encounter Details Date Type Department Care Team ([facility] st Contact Info) Description 04/01/2024 Refill [facility] MEDICINE [address] [place], [place] [phone] Name, MD Nitin 230 [place] [address] Rash Social History Tobacco Use Types Packs/Day [...] Description 09/06/2025 1:30 PM EDT Office Visit [facility] MEDICINE [address] [place] [address] Thea Warren FNP [address] [place] [address] 11/07/2025 10:00 AM EST Office Visit [address] [address] Name, MD Nitin [address] [place] [address] documented as of this encounter Visit Diagnoses Diagnosis Rash Rash and other nonspecific skin eruption documented in this encounter Additional Health Concerns Assessment Noted Time PHQ-9 Depression Total Score: 6 02/13/20 9:14 AM EDT documented as of this encounter Care Teams Firer Bisque Kiln Relationship Specialty Start Date End Date NameNitin MD [address] [place] [address] PCP - General Family Medicine 08/26/17 [facility] 09/01/24 documented as of this encounter
--- OUTSIDE RECORDS SUMMARY | 2025-08-29 20:52 | XMS_ITS | Encounter Summary ---
Author Organization [employer] Address [address] [place] [facility] [address] [place] [address] Care Team Providers Care Signal Constructor Name Role Phone Name, Nitin PIKE Primary Care Provider [phone] Reason for Visit * Reason Comments Med Refill Encounter Details Date Type Department Care Team (Late st Contact Info) Description 08/17/2025 Refill [facility] 230 [place], [place] [phone] Miryam Riley NP 230 [place], [place] [phone] Hypertension, unspecified type Social History Tobacco Use [...] Description 09/06/2025 1:30 PM EDT Office Visit [facility] [address] [place] [address] Thea Warren FNP [address] [place] [address] 11/07/2025 10:00 AM EST Office Visit [address] [address] Nitin Echevarria MD [address] [place] [address] documented as of this encounter Visit Diagnoses Diagnosis Hypertension, unspecified type documented in this encounter Additional Health Concerns Assessment Noted Time PHQ-9 Depression Total Score: 3 04/29/20 25 9:41 AM EDT documented as of this encounter Care Teams Signal Constructor Relationship Specialty Start Date End Date Nitin Echevarria MD [address] [place] [address] PCP - General Family Medicine 08/26/17 [facility] 09/01/24 documented as of this encounter
--- OUTSIDE RECORDS SUMMARY | 2025-08-29 20:52 | XMS_ITS | Encounter Summary ---
Author Organization [employer] Address [address] [facility] [address] [place] [address] Care Team Providers Care Cushion Maker Name Role Phone Name, Nitin PIKE Primary Care Provider [phone] Reason for Visit * Reason Onset Date Comments Verbal Order 08/24/2025 Encounter Details Date Type Department Care Team ([facility] st Contact Info) Description 08/24/2025 Telephone [facility] MEDICINE 230 [place], [place] [phone] Name, MD Nitin 230 [place] [address] Verbal Order Social History Tobacco Use Types [...] PM EDT Call returned to Pham at [facility] who states they initiated VNA for pt today, started at [facility] asking if pcp is willing to sign vna paperwork for pt. Approved verbal order. Pt evaluated in [facility] 08/20/25 Diagnosis: Low back pain, muscle spasm. Pt evaluated in [facility] 08/22/25 Diagnosis: Closed tibial fracture. T/C to pt for status check via S Capsule Machine Operator Ana #[id number]. Pt reports that she still feels terrible [...] home health services. Please contact Pham at [phone]. documented in this encounter Plan of Treatment Upcoming Encounters Date Type Department Care Team (Late st Contact Info) Description 09/06/2025 1:30 PM EDT Office Visit [facility] MEDICINE [address] [place] [address] Thea Warren FNP 230 [place] [address] 11/07/2025 10:00 AM EST Office Visit [address] [address] Name, MD Nitin [address] [place] [address] documented as of this encounter Visit Diagnoses Not on filedocumented in this encounter Additional Health Concerns Assessment Noted Time PHQ-9 Depression Total Score: 3 04/29/20 25 9:41 AM EDT documented as of this encounter Care Teams Cushion Maker Relationship Specialty Start Date End Date NameNitin MD [address] [place] [address] PCP - General Family Medicine 08/26/17 [facility] 09/01/24 documented as of this encounter
--- OUTSIDE RECORDS SUMMARY | 2025-08-29 20:52 | XMS_ITS | Encounter Summary ---
Author Organization [employer] Address [address] [facility] [address] [place] [address] Care Team Providers Care Environmental Science Technician Name Role Phone Name, Nitin PIKE Primary Care Provider [phone] Reason for Visit * Reason Comments Med Refill Encounter Details Date Type Department Care Team (Late st Contact Info) Description 04/20/2025 Refill [facility] 230 [place] [address] Zechariah Cheung MD 230 [place] [address] Allergic rhinitis, unspecified seasonality, unspecified trigger Social [...] Description 09/06/2025 1:30 PM EDT Office Visit [facility] [address] [place] [address] Thea Warren FNP [address] [place] [address] 11/07/2025 10:00 AM EST Office Visit [facility] [address] [place] [address] Nitin Echevarria MD [address] [place] [address] documented as of this encounter Visit Diagnoses Diagnosis Allergic rhinitis, unspecified seasonality, unspecified trigger documented in this encounter Additional Health Concerns Assessment Noted Time PHQ-9 Depression Total Score: 6 02/13/20 24 9:14 AM EDT documented as of this encounter Care Teams Environmental Science Technician Relationship Specialty Start Date End Date Nitin Echevarria MD [address] [place] [address], [place] [address] PCP - General Family Medicine 08/26/17 [facility] 09/01/24 documented as of this encounter
--- OUTSIDE RECORDS SUMMARY | 2025-08-29 20:52 | XMS_ITS | Encounter Summary ---
Author Organization [employer] Address [address] [facility] [address] [place] [address] Care Team Providers Care Aviation Maintenance Instructor Name Role Phone Name, Nitin PIKE Primary Care Provider [phone] Reason for Visit * Reason Onset Date Comments ER Follow-up 05/31/2024 Encounter Details Date Type Department Care Team ([facility] Contact Info) Description 05/31/2024 Telephone [facility] MEDICINE 230 [place], [place] [phone] Name, MD Nitin 230 [place] [address] ER Follow-up Social History Tobacco Use Types [...] 05/31/2024 1:36 PM EDT T/C to Pat ([facility]) [phone] for below message, no answer. LVM to call back on [phone]. * Telephone Encounter - Melany Santos RN - 05/31/2024 1:32 PM EDT DAVID T/C to pt. Through [employer] id - [id number] for below message, pt. Had recent fall and ED visit at [facility]. RN will request GRACE piedra from [facility]. Pt. Is doing good, states I am tired andsleeping. Pt. Dose not has any question or concern right now. Pt. Already has HDF apt. Schedule on 06/10/2024. Pt. Advised to give call to [facility] if any questions or concerns. Pt. Verbally agreed and understood. Please review and advise if needed. * Telephone Encounter - Adithya Solorzano - 05/31/2024 12:50 PM EDT Patient calling to report ED visit on : Date: 05/26 Hospital: [facility] Seen for: Fall, Back Pain Pat stated pt is requesting a sooner apt with pcp due to recent ER visit. PT is also requesting order for PT services for to go along with VNA. documented in this encounter Plan of Treatment Upcoming Encounters Date Type Department Care Team (Late st Contact Info) Description 09/06/2025 1:30 PM EDT Office Visit [facility] MEDICINE [address] [place] [address] Thea Warren FNP [address] [place] [address] [phone] 11/07/2025 10:00 AM EST Office Visit [address] [place] [address] [address] NameNitin MD [address] [place] [address] documented as of this encounter Visit Diagnoses Not on filedocumented in this encounter Additional Health Concerns Assessment Noted Time PHQ-9 Depression Total Score: 6 02/13/20 24 9:14 AM EDT documented as of this encounter Care Teams Aviation Maintenance Instructor Relationship Specialty Start Date End Date Name, MD Nitin [address] [place] [address] PCP - General Family Medicine 08/26/17 [facility] 09/01/24 documented as of this encounter
--- OUTSIDE RECORDS SUMMARY | 2025-08-29 20:52 | XMS_ITS | Clinical Summary ---
Author Organization [facility] Address [address] [place] [address] Phone Care Team Providers Care Industrial Electrical Engineer Name Role Phone Physician, No Pcp [...] [facility] Comment:Calculation based on the [...] LAB CHEMISTRY METHOD 09/22/2024 3:15 AM EST [facility] Albumin 4.2 3.2 - 5.0 g/dL LAB CHEMISTRY METHOD 09/22/2024 3:15 AM EST [facility] Total Bilirubin 0.4 0.0 - 1.4 mg/dL LAB CHEMISTRY METHOD 09/22/2024 3:15 AM EST [facility] Blood Venous blood specimen / Unknown Venipuncture / Unknown 09/22/2024 2:28 AM EST 09/22/2024 2:31 AM EST Paul RUIZ LAB BLOOD ORDERABLES Final Resul t [facility] [address] [place] [address], from Last 3 Months or Most Recently Relevant to Health Maintenance Insurance [facility] MEDICARE Member Subscriber Plan / Payer (Ef fective 2021-Present) Name:Noreen Wing Relation to Subscriber:Self Name:Noreen Wing Payer ID:[id number] Group ID:[id number] Type:Not on file Address: [place] [address] Care Teams Industrial Electrical Engineer Relationship Specialty Start Date End Date Physician, No Pcp PCP - General 09/22/24
--- OUTSIDE RECORDS SUMMARY | 2025-08-29 20:52 | XMS_ITS | Encounter Summary ---
Author Organization [employer] Address 75 [facility] [address] [place] [address] Care Team Providers Care Lithographic Plate Maker Apprentice Name Role Phone Name, Nitin PIKE Primary Care Provider [phone] Reason for Visit * Reason Onset Date Comments ER Follow-up 05/04/2024 Encounter Details Date Type Department Care Team ([facility] Contact Info) Description 05/04/2024 Telephone [facility] MEDICINE 230 [place], [place] [phone] Name, MD Nitin [address] [place] [address] ER Follow-up Social History Tobacco Use Types [...] 11:01 AM EDT T/C to pt. Through Concuity id - [id number] for below message, No answer. LVM to call back [phone] . * Telephone Encounter - Adithya Solorzano - 05/04/2024 9:35 AM EDT Noreen with [facility] calling to report ED visit on : Date: 04/28 Hospital: [facility] Seen for: UTI, Nausea, Rash. Noreen advised will be forwarding message to team nurses. Please contact pt at [phone]. documented in this encounter Plan of Treatment Upcoming Encounters Date Type Department Care Team (Late st Contact Info) Description 09/06/2025 1:30 PM EDT Office Visit [facility] MEDICINE [address] [place] [address] Thea Warren FNP [address] [place] [address] 11/07/2025 10:00 AM EST Office Visit [facility] MEDICINE [address] [place] [address] Name, MD Nitin [address] [place] [address] documented as of this encounter Visit Diagnoses Not on filedocumented in this encounter Additional Health Concerns Assessment Noted Time PHQ-9 Depression Total Score: 6 02/13/20 24 9:14 AM EDT documented as of this encounter Care Teams Lithographic Plate Maker Apprentice Relationship Specialty Start Date End Date Name, MD Nitin [address] [place] [address] PCP - General Family Medicine 08/26/17 [facility] 09/01/24 documented as of this encounter
--- OUTSIDE RECORDS SUMMARY | 2025-08-29 20:52 | XMS_ITS | Encounter Summary ---
Author Organization [employer] Address [address] [facility] [address] [place] [address] Care Team Providers Care Watch Band Assembler Name Role Phone Name, Nitin PIKE Primary Care Provider [phone] Reason for Visit * Reason Onset Date Comments Referral 08/24/2025 Encounter Details Date Type Department Care Team ([facility] st Contact Info) Description 08/24/2025 Telephone [facility] [address] [place], [place] [phone] Name, MD Nitin [address] [place] [address] Referral Social History Tobacco Use Types Packs/Day [...] 09/21/25 TIME: 10 am Facility Name[place] [facility] [place] Type of Specialist: Physical therapy Facility Phone # : [phone] Fax #: [phone] documented in this encounter Plan of Treatment Upcoming Encounters Date Type Department Care Team (Late st Contact Info) Description 09/06/2025 1:30 PM EDT Office Visit [facility] [address] [place] [address] Thea Warren FNP 230 [place] [address] 11/07/2025 10:00 AM EST Office Visit [facility] [address] [place] [address] Name, MD Nitin [address] [place] [address] documented as of this encounter Visit Diagnoses Not on filedocumented in this encounter Additional Health Concerns Assessment Noted Time PHQ-9 Depression Total Score: 3 04/29/20 25 9:41 AM EDT documented as of this encounter Care Teams Watch Band Assembler Relationship Specialty Start Date End Date Name, MD Nitin [address] [place] [address] PCP - General Family Medicine 08/26/17 [facility] 09/01/24 documented as of this encounter
--- OUTSIDE RECORDS SUMMARY | 2025-08-29 20:52 | XMS_ITS | Encounter Summary ---
Author Organization [employer] Address [address] [facility] [address] [place] [address] Care Team Providers Care Clinical Social Work Therapist Name Role Phone Name, Nitin PIKE Primary Care Provider [phone] Reason for Visit * Reason Onset Date Comments Med Refill 11/08/2024 Encounter Details Date Type Department Care Team ([facility] st Contact Info) Description 11/08/2024 Telephone [facility] MEDICINE [address] [place], [place] [phone] Name, MD Nitin [address] [place] [address] Med Refill Social History Tobacco Use Types [...] 5 MG tablet To be sent to: [facility] - [place], [place] - [address] [facility] documented in this encounter Plan of Treatment Upcoming Encounters Date Type Department Care Team ([facility] st Contact Info) Description 09/06/2025 1:30 PM EDT Office Visit [facility] MEDICINE [address] [place] [address] Thea Warren FNP [address] [place] [address] 11/07/2025 10:00 AM EST Office Visit [facility] MEDICINE [address] [place] [address] Name, [place] [address] documented as of this encounter Visit Diagnoses Not on filedocumented in this encounter Additional Health Concerns Assessment Noted Time PHQ-9 Depression Total Score: 6 02/13/20 24 9:14 AM EDT documented as of this encounter Care Teams Clinical Social Work Therapist Relationship Specialty Start Date End Date Name, [place] [address] PCP - General Family Medicine 08/26/17 [facility] 09/01/24 documented as of this encounter
--- OUTSIDE RECORDS SUMMARY | 2025-08-29 20:52 | XMS_ITS | Encounter Summary ---
Author Organization [employer] Address [address] [facility] [address] [place] [address] Care Team Providers Care Technical Recruiter Name Role Phone Name, Nitin PIKE Primary Care Provider [phone] Reason for Visit * Reason Onset Date Comments Hospital Follow-up 10/20/2024 Encounter Details Date Type Department Care Team ([facility] Contact Info) Description 10/20/[address] [facility] MEDICINE [address] [place], [place] [phone] Name, MD Nitin [address] [place] [address] Hospital Follow-up Social History Tobacco Use Types [...] from pt requesting a HDF appt. [place]: [facility] [place] Date of admission: 10/17 Discharge date: 10/19 Diagnosed: High Blood Pressure and Fever Contact pt at [phone] *Send message to [facility] Care Coordinators documented in this encounter Plan of Treatment Upcoming Encounters Date Type Department Care Team (Late st Contact Info) Description 09/06/2025 1:30 PM EDT Office Visit [facility] MEDICINE [address] [place] [id number] Thea Warren FNP [address] [place] [address] 11/07/2025 10:00 AM EST Office Visit [facility] MEDICINE [address] [place] [phone] Name, MD Nitin [address] [place] [address] documented as of this encounter Visit Diagnoses Not on filedocumented in this encounter Additional Health Concerns Assessment Noted Time PHQ-9 Depression Total Score: 6 02/13/20 24 9:14 AM EDT documented as of this encounter Care Teams Technical Recruiter Relationship Specialty Start Date End Date Name, MD Nitin [address] [place] [address] PCP - General Family Medicine 08/26/17 [facility] 09/01/24 documented as of this encounter
--- OUTSIDE RECORDS SUMMARY | 2025-08-29 20:53 | XMS_ITS | Encounter Summary ---
Author Organization [employer] Address [address] [facility] [address] [place] [address] Care Team Providers Care Franchise Broker Name Role Phone Name, Nitin PIKE Primary Care Provider [phone] Encounter Details Date Type Department Care Team (Late st Contact Info) Description 11/06/2022 Orders Only [facility] [address] [place], [place] [phone] Lisha Kelly LPN Social History Tobacco Use [...] Description 09/06/2025 1:30 PM EDT Office Visit [facility] [address] [place] [address] Thea Warren FNP [address] [place] [address] 11/07/2025 10:00 AM EST Office Visit [address] [address] Nitin Echevarria MD [address] [place] [address] documented as of this encounter Visit Diagnoses Not on filedocumented in this encounter Care Teams Franchise Broker Relationship Specialty Start Date End Date Name, MD Nitin [address] [place] [address] PCP - General Family Medicine 08/26/17 [facility] 09/01/24 documented as of this encounter
--- OUTSIDE RECORDS SUMMARY | 2025-08-29 20:53 | XMS_ITS | Encounter Summary ---
Author Organization [employer] Address [address] [facility] [address] [place] [address] Care Team Providers Care Marble Mechanic Helper Name Role Phone Name, Nitin PIKE Primary Care Provider Reason for Visit * Reason Onset Date Comments Order(s) 12/09/2023 Encounter Details Date Type Department Care Team ([facility] Contact Info) Description 12/09/2023 Telephone [facility] MEDICINE [address] [place], [place] [phone] Name, MD Nitin [address] [place], [place] [phone] Order(s) Social History Tobacco Use Types Packs/Day [...] orders. If any questions please contact Noreen [phone]. documented in this encounter Plan of Treatment Upcoming Encounters Date Type Department Care Team (Late st Contact Info) Description 09/06/2025 1:30 PM EDT Office Visit [address] [address] Thea Warren FNP [address] [place] [phone] 11/07/2025 10:00 AM EST Office Visit [address] [address] NameNitin MD [address] [place] [address] documented as of this encounter Visit Diagnoses Not on filedocumented in this encounter Additional Health Concerns Assessment Noted Time PHQ-9 Depression Total Score: 12 023 9:37 AM EDT documented as of this encounter Care Teams Marble Mechanic Helper Relationship Specialty Start Date End Date Nitin Echevarria MD [address] [place] [id number] PCP - General Family Medicine 08/26/17 [facility] 09/01/24 documented as of this encounter
--- OUTSIDE RECORDS SUMMARY | 2025-08-29 20:53 | XMS_ITS | Clinical Summary ---
Author Organization [employer] Address [address] [place] [address] [address] [place] [address] Care Team Providers Care Feedlot Manager Name Role Phone Name, Nitin PIKE Primary Care Provider [phone] Allergies Active Allergy Reactions Criticality Noted Date [...] MOUTH EVERY 8 HOURS NEEDED FOR PAIN ([place] LABEL) 90 tablet 025 Active omeprazole (PriLOSEC) [...] MOUTH EVERY 8 HOURS NEEDED FOR PAIN ([place] LABEL) 90 tablet 2024 Discontinued(R eorder (will [...] because it calms her down. I called [facility] pharmacy to attempt a med rec they instructed me that she is on med box and one week at a time prescriptions because she would break into her med boxes to take more Ambien or xanax. She is being seen by Izzy Perea at [facility]. He is aware of her behavior and [...] left I received a call from the [facility] pharmacy instructing me that she was [...] Type Department Care Team Description 08/24/2025 Telephone [facility] MEDICINE [address] [place] [address] Nitin Echevarria MD Referral 08/24/2025 Telephone [facility] [address] [place] [address] Nitin Echevarria MD Verbal Order 08/22/2025 Orders Only [facility] External Provider, [facility] 08/18/2025 Orders Only GENERIC EXTERNAL DATA DEPARTMENT Provider, Generic External Data 08/17/2025 Refill [facility] [address] [place] [address] Nitin Echevarria MD 08/17/2025 Refill [facility] [address] [place] [address] Miryam Riley NP Hypertension, unspecified type 08/15/2025 Refill [facility] [address] [place] [address] Nitin Echevarria MD Heartburn 08/14/2025 Refill [facility] [address] [place], [place] [phone] Nitin Echevarria MD Heartburn; Vitamin D deficiency 08/09/2025 11:15 AM EDT Office Visit [facility] [address] [place] [address] Nitin Echevarria MD Generalized anxiety disorder with panic attacks (Primary Dx); Encounter for immunization; Chronic bilateral low back pain without sciatica 08/09/2025 Travel 08/01/2025 Refill [facility] [address] [place] [address] Nitin Echevarria MD Vitamin D deficiency 07/28/2025 Orders Only GENERIC EXTERNAL DATA DEPARTMENT Provider, Generic External Data 07/27/2025 Orders Only [facility] External Provider, [facility] 07/26/2025 Orders Only GENERIC EXTERNAL DATA DEPARTMENT Provider, Generic External Data 07/26/2025 Telephone [facility] [address] [place] [address] Nitin Echevarria MD ER Follow-up 07/25/2025 Refill [facility] [address] [place] [address] Nitin Echevarria MD 07/25/2025 Refill [facility] [address] [place] [address] Nitin Echevarria MD 07/18/2025 Refill [facility] [address] [place] [address] Miryam Riley NP 07/18/2025 Orders Only GENERIC EXTERNAL DATA DEPARTMENT Provider, Generic External Data 07/17/2025 Refill [facility] [address] [place] [address] Nitin Echevarria MD Hypertension, unspecified type 07/07/2025 8:40 AM EDT [facility] [address] [address] Zach Javier MD Acute conjunctivitis of left eye, unspecified acute conjunctivitis type (Primary Dx) 07/07/2025 Travel 07/01/2025 9:20 AM EDT [facility] [address] [address] Zach Javier MD Pedal edema (Primary Dx) 07/01/2025 Travel 06/28/2025 Refill [facility] [address] [place] [address] Nitin Echevarria MD 06/27/2025 Refill [facility] [address] [place], [place] [phone] Nitin Echevarria MD Vitamin D deficiency 06/19/2025 Refill [facility] [address] [address] Nitin Echevarria MD Prediabetes 06/17/2025 9:30 AM EDT Office Visit [facility] [address] [place] [address] Thea Warren, NOLVIA Generalized anxiety disorder with panic attacks (Primary Dx); Essential (primary) hypertension 06/17/2025 Travel 06/17/2025 Telephone [facility] [address] [place] [address] Name, MD Nitin Med Refill (Pt is ) 06/08/2025 Refill [facility] [address] [place] [address] Name, MD Nitin from Last 3 Months [...] Description 09/06/2025 1:30 PM EDT Office Visit [facility] [address] [place] [phone] Thea Warren FNP [address] [place] [address] 11/07/2025 10:00 AM EST Office Visit [address] [phone] Name, MD Nitin [address] [place] [address] Health Maintenance Due Date Last Done Comments [...] AM EDT Narrative 08/22/2025 8:17 AM EDT [place] [address] XRay Report Signed Patient: Noreen Wing MR#: [id number] : 1945 Acct:[id number] Age/Sex: 79 / F ADM Date: 08/22/25 Loc: HO.ED Attending Dr: Ordering Physician: Sarai Layton Date of Service: 08/22/25 Procedure(s): XR knee LT 4V Accession Number(s): [id number] cc: [facility]; Sarai Layton Reason for Exam: atraumatic [...] in OV> 08/22/25816 DD/ 5 TD/TT: 08/22/25815 Computer Forensics Examiner: Procedure Note Donotnorahinterpreter, Image - 08/22/[address] [address] XRay Report Signed Patient: Noreen WingMR#: [id number] : 1945cct:[id number] Age/Sex: 79 / FADM Date: 08/22/25 Loc: HO.ED Attending Dr: Ordering Physician: Sarai Layton Date of Service: 08/22/25 Procedure(s): XR knee LT 4V Accession Number(s): [id number] cc: [facility]; Sarai Layton Reason for Exam: atraumatic [...] in OV> 08/22/25816 DD/ 5 TD/TT: 08/22/25815 Computer Forensics Examiner: us [facility] External Provider IMG XR PROCEDURES Edited Result - Final * (ABNORMAL) Basic Metabolic Panel (08/18/2025 8:44 AM EDT) Only the most recent of2 resultswithin the time period is included. Sodium 137 135 - 145 mmol/L [facility] Potassium 4.6 3.3 - 5.1 mmol/L [facility] Chloride 101 96 - 108 mmol/L [facility] Carbon Dioxide 30(H) 22 - 29 mmol/L [facility] Anion Gap 11(L) 12 - 20 [facility] Urea Nitrogen (BUN) 19(H) 9 - 16 mg/dL [facility] Creatinine, Serum 0.94 0.5 - 1.4 mg/dL [facility] Estimated Glomerular Filt Rate 57 [facility] Comment:Chronic Kidney Disea se: Estimated GFR < 60 mL/min/1.07g0[place] Kidney Disease: Estimated GFR < 15 mL/min/1.73m2 Glucose 94 60 - 115 mg/dL [facility] Calcium 9.3 8.4 - 10.2 mg/dL [facility] 08/18/2025 8:44 AM EDT 08/18/2025 8:44 AM EDT Generic External Data Provider LAB BLOOD ORDERAB LES Final Result Performing Organization Address City/[facility]/ZIP Co de Phone Number [facility] [address] [place] [address] [phone] * Culture, Urine, Routine (07/28/2025 9:44 PM EDT) Only the most recent of3 resultswithin the time period is included. Urine Urine specimen obtained by clean catch procedure / Unknown 07/28/2025 9:44 PM EDT 07/28/2025 9:44 PM EDT Comment:UACC Narrative [facility] - 07/30/2025 9:57 AM EDT Urine Culture Report Result Urine Culture 10,000 to 50,000 cfu/ml Urine Culture Mixed bacterial jann characteristic of Urine Culture urogenital contamination. Specimen Source: Urine clean catch us Generic External Data Provider LAB MICROBIOLOGY - GENERAL ORDERABLES Final Result Performing Organization Address City/[facility]/ZIP Co de Phone Number [facility] [address] [place] [address] [phone] * CTA Chest PE Protocal (07/28/2025 8:35 PM EDT) Only the most recent of2 resultswithin the time period is included. Anatomical Region Laterality Modality Body, Chest Computed Tomogra phy 07/28/2025 8:35 PM EDT Narrative 07/28/2025 8:36 PM EDT [address] [address] [address] Scan Report Signed Patient: Noreen Wing MR#: [id number] : 1945 Acct:[id number] Age/Sex: 79 / F ADM Date: 07/28/25 Loc: HO.ED Attending Dr: Ordering Physician: Cuco Amador Date of Service: 07/28/25 Procedure(s): CT angio chest PE protocol Accession Number(s): [id number] cc: Cuco Amador; Name,Nitin PIKE Report Number: [id number]: Total DLP = 311.00 mGy-cm Reason for [...] in OV> 07/28/252034 DD/ 34 TD/TT: 07/28/252034 Computer Forensics Examiner: Procedure Note Donotuseinterpreter, Image - 07/28/[address] [address] [address] Scan Report Signed Patient: Noreen WingMR#: [id number] : 3Acct:[id number] Age/Sex: 79 / FADM Date: 07/28/25 Loc: HO.ED Attending Dr: Ordering Physician: Cuco Amador Date of Service: 07/28/25 Procedure(s): CT angio chest PE protocol Accession Number(s): [id number] cc: Cuco Amador; Name,Nitin PIKE Report Number: [id number]: Total DLP = 311.00 mGy-cm Reason for [...] in OV> 07/28/252034 DD/ 34 TD/TT: 07/28/252034 Computer Forensics Examiner: [facility] External Provider IMG CT PROCEDURES Final Result * High Sensitivity Troponin I (07/28/2025 8:06 PM EDT) Only the most recent of4 resultswithin the time period is included. TROPONIN I HIGH SENSITIVITY <2.7 <3.5 - 17.0 ng/L [facility] Comment:The [place] high sens itivity Troponin-I results should beused in conjunction with other diagnostic information suchas ECG, clinical observations and information, and patientsymptoms to aid in the diagnosis of NE. 07/28/2025 8:06 PM EDT 07/28/2025 8:12 PM EDT us Generic External Data Provider LAB BLOOD ORDERAB LES Final Result Performing Organization Address City/[facility]/ZIP Co de Phone Number [facility] [address] [place] [address] [phone] * (ABNORMAL) Urinalysis, Complete, with Reflex to Culture (07/28/2025 8:06 PM EDT) Only the most recent of3 resultswithin the time period is included. Color Urine Yellow [facility] Appearance Urine Clear [facility] PH 6.0 5.0 - 9.0 [facility] Glucose Urine UA Negative Negative mg/dL [facility] Urine Blood Negative Negative [facility] Specific [place] - Urine >=1.030(H) 1.005 - 1.025 [facility] Urine Protein Negative Neg-Trace mg/dL [facility] Urine Ketones Negative Negative mg/dL [facility] Nitrite Urine Negative Negative [facility] Leukocyte Esterase Urine Small (1+)(A) Negative [facility] RBC Urine 0-2 0 - 2 /HPF [facility] Urine WBC 6-10(A) 0 - 5 /HPF [facility] Urine Squamous Epithelial Cell 0-2 0 - 2 /HPF [facility] Urine Bacteria None Seen None Seen [facility] Hyaline Casts, Urine 0-2 0 - 2 /LPF [facility] 07/28/2025 8:06 PM EDT 07/28/2025 8:12 PM EDT Narrative [facility] - 07/28/2025 9:26 PM EDT [id number], Clean Catch us Generic External Data Provider LAB URINE ORDERAB LES Final Result Performing Organization Address [facility]/ZIP Co de Phone Number [facility] [address] [place] [address] [phone] * CT Abdomen Pelvis w/ Contrast (07/28/2025 8:01 PM EDT) Anatomical Region Laterality Modality Body, Pelvis, Abdomen Computed T omography 07/28/2025 8:01 PM EDT Narrative 07/28/2025 8:03 PM EDT [address] [address] [address] Scan Report Signed Patient: Noreen Wing MR#: [id number] : 1945 Acct:[id number] Age/Sex: 79 / F ADM Date: 07/28/25 Loc: HO.ED Attending Dr: Ordering Physician: Cuco Amador Date of Service: 07/28/25 Procedure(s): CT abdomen pelvis w IV con Accession Number(s): [id number] cc: Cuco Amador; Name,Nitin PIKE Report Number: [id number]: Total DLP = 539.64 mGy-cm Reason for [...] in OV> 07/28/252001 DD/ 00 TD/TT: 07/28/252000 Computer Forensics Examiner: Procedure Note Donotuseinterpreter, Image - 07/28/[address] [place] [address] [address] Scan Report Signed Patient: Jennifer Wing#: [id number] : 3Acct:[id number] Age/Sex: 79 / FADM Date: 07/28/25 Loc: HO.ED Attending Dr: Ordering Physician: Cuco Amador Date of Service: 07/28/25 Procedure(s): CT abdomen pelvis w IV con Accession Number(s): [id number] cc: Cuco Amador; Name,Nitin PIKE Report Number: [id number]: Total DLP = 539.64 mGy-cm Reason for [...] in OV> 07/28/252001 DD/ 00 TD/TT: 07/28/252000 Computer Forensics Examiner: [facility] External Provider IMG CT PROCEDURES Final Result * (ABNORMAL) CBC auto differential (07/28/2025 5:01 PM EDT) Only the most recent of3 resultswithin the time period is included. White Blood Count 7.2 4.8 - 10.8 X10*3/uL [facility] Red Blood Count 3.71(L) 4.20 - 5.50 X10*6/uL [facility] Hemoglobin 10.6(L) 12.0 - 16.0 g/dl [facility] Hematocrit 31.4(L) 37.0 - 47.0 % [facility] Mean Corpuscular Volume 84.6 80.0 - 98.0 fL [facility] Mean Corpuscular Hemoglobin 28.6 27.0 - 33.0 pg [facility] Mean Corpuscular HGB Conc 33.8 31.0 - 35.0 g/dl [facility] Red Cell Distribution Width 14.0 11.0 - 16.0 % [facility] Platelet Count 245 160 - 400 X10*3/uL [facility] Mean Platelet Volume 8.8(L) 9.4 - 12.3 fL [facility] Neutrophils Percent Auto 57.8 45 - 73 % [facility] Imm Gran Pct Auto 0.3 0.0 - 0.4 % [facility] Lymphocytes Percent Auto 27.2 20 - 40 % [facility] Monocytes Percent Auto 12.5(H) 2 - 11 % [facility] Eosinophils Percent Auto 1.8 0 - 4 % [facility] Basophils Percent Auto 0.4 0 - 2 % [facility] NRBC Pct Auto 0.0 0.0 - 0.2 /100WBC [facility] Neutrophils Absolute Auto 4.2 2.0 - 8.3 x10*3/uL [facility] Imm Gran Abs Auto 0.02 0.00 - 0.03 X10*3/uL [facility] Lymphocytes Absolute Auto 2.0 1.2 - 4.9 X10*3/uL [facility] Monocytes Absolute Auto 0.9 0.1 - 1.2 X10*3/uL [facility] Eosinophils Absolute Auto 0.1 0.0 - 0.4 X10*3/uL [facility] Basophils Absolute Auto 0.0 0.0 - 0.2 X10*3/uL [facility] NRBC Abs Auto 0.000 0.0 - 0.012 X10*3/uL [facility] 07/28/2025 5:01 PM EDT 07/28/2025 5:05 PM EDT us Generic External Data Provider LAB BLOOD ORDERAB LES Final Result Performing Organization Address City/[facility]/ZIP Co de Phone Number [facility] [address] [place] [phone] * Partial Thromboplastin Time, Activated (APTT) (07/28/2025 5:01 PM EDT) Partial Thromboplastin Time 31.4 26.7 - 34.1 SEC [facility] 07/28/2025 5:01 PM EDT 07/28/2025 5:05 PM EDT Generic External Data Provider LAB BLOOD ORDERAB LES Final Result Performing Organization Address [facility] Co de Phone Number [facility] [address] [place] [phone] * (ABNORMAL) Prothrombin Time-INR (07/28/2025 5:01 PM EDT) Prothrombin Time 14.3(H) 10.9 - 12.4 SEC [facility] INTERNATIONAL NORM RATIO 1.2(H) 0.9 - 1.1 [facility] Comment:INTERNATIONAL NORMAL IZED RATIO (INR) REFERENCE [...] Provider LAB BLOOD ORDERAB LES Final Result [facility] [address] [place] [address] [phone] * Lipase (07/28/2025 5:01 PM EDT) Pathologist [facility] Lipase 31 8 - 78 U/L [facility] 07/28/2025 5:01 PM EDT 07/28/2025 5:05 PM EDT Generic External Data Provider LAB BLOOD ORDERAB LES Final Result Performing Organization Address City/[facility]/ZIP Co de Phone Number [facility] [address] [place] [address] [phone] * (ABNORMAL) Comprehensive Metabolic Panel (07/28/2025 5:01 PM EDT) Only the most recent of2 resultswithin the time period is included. Pathologist [facility] Sodium 140 135 - 145 mmol/L [facility] Potassium 4.1 3.3 - 5.1 mmol/L [facility] Chloride 104 96 - 108 mmol/L [facility] Carbon Dioxide 30(H) 22 - 29 mmol/L [facility] Anion Gap 10(L) 12 - 20 [facility] Urea Nitrogen (BUN) 24(H) 9 - 16 mg/dL [facility] Creatinine, Serum 1.03 0.5 - 1.4 mg/dL [facility] Creatinine Clr Calc Pharmacy 50.1 [facility] Comment:Provided height and weight: 172.72 cm,89.5 kg.eGFR (calculated from the MDRD study equation) and eCrCl(calculated from the Cockcroft-Gault equation) are based ondifferent parameters and may not yield comparable results.If eCrCl result is absurd, please check patient'sheight/weight. Estimated Glomerular Filt Rate 51 [facility] Comment:Chronic Kidney Disea se: Estimated GFR < 60 mL/min/1.97b1[place] Kidney Disease: Estimated GFR < 15 mL/min/1.73m2 Glucose 146(H) 60 - 115 mg/dL [facility] Calcium 8.4 8.4 - 10.2 mg/dL [facility] Bilirubin, Total 0.2 0.0 - 1.0 mg/dL [facility] Aspartate Amino Transferase 34(H) 5 - 31 U/L [facility] Alanine Aminotransferase 23 0 - 31 U/L [facility] Total Protein 7.3 6.5 - 8.0 g/dL [facility] Albumin Level 4.0 3.5 - 5.0 g/dL [facility] Alkaline Phosphatase 72 39 - 117 U/L [facility] 07/28/2025 5:01 PM EDT 07/28/2025 5:05 PM EDT us Generic External Data Provider LAB BLOOD ORDERAB LES Final Result [facility] [address] [place] [phone] * POCT HGB A1C (01/10/2025 11:02 AM EST) Hemoglobin A1C 5.1 4.0 - 6.0 % QC Media Lot # [id number] Lot# Expiration Date ,949,473 Blood 01/10/2025 11:0 2 AM EST us [...] LDL-C. Jack SS et al. JITENDRA. 2013;310(19): 4350-3578 (http://education.[employer]/faq/URF854) Non-HDL Cholesterol 88 <130 mg/dL (calc) CONVERTED [...] Most Recently Relevant to Health Maintenance Insurance [id number] [employer] [facility] OPTIONS (O D-SNP) [place] [id number] Care Teams Feedlot Manager Relationship Specialty Start Date End Date Name, MD Nitin [address] [place] [phone] PCP - General Family Medicine 08/26/17 [facility] 09/01/24
--- OUTSIDE RECORDS SUMMARY | 2025-08-29 20:53 | XMS_ITS | Encounter Summary ---
Author Organization [employer] Address [address] [facility] [address] [place] [address] Care Team Providers Care Driller Brake Lining Name Role Phone Name, Nitin PIKE Primary Care Provider [phone] Reason for Visit * Reason Onset Date Comments Durable Medical Equipment 12/09/2023 Encounter Details Date Type Department Care Team ([facility] st Contact Info) Description 12/09/2023 Telephone [facility] [address] [place], [place] [phone] Name, MD Nitin [address] [place], [place] [phone] Durable Medical Equipment Social History Tobacco Use [...] EST Call returned to [facility] at [facility] [phone] ext. [phone]. [facility] states that [facility] attempted to provide PT at home but pt refused. [facility] pt is requesting outpatient PT. [facility] pt is seeing a counselor more regularly and has agreed to [facility]NA referral. Reports pt has had 3 falls in the past 2 months. [facility] states [facility] no longer has visiting nurses. [facility] recommends [employer] or [facility] for VNA referral. [facility] also requesting DME rx for rollator walker and a straight cane. Requests that DME rx be faxed to [phone]. Advised requests will be sent to pcp. * Telephone Encounter - Adithya Solorzano - 12/09/2023 4:25 PM EST Tc from [facility] requesting DME: Rollator walker . documented in this encounter Plan of Treatment Upcoming Encounters Date Type Department Care Team (Late st Contact Info) Description 09/06/2025 1:30 PM EDT Office Visit [facility] [address] [place] [address] Thea Warren FNP [address] [place] [address] 11/07/2025 10:00 AM EST Office Visit [facility] [address] [place] [address] Name, MD Nitin [address] [place] [address] documented as of this encounter Visit Diagnoses Not on filedocumented in this encounter Additional Health Concerns Assessment Noted Time PHQ-9 Depression Total Score: 12 05/29/ 023 9:37 AM EDT documented as of this encounter Care Teams Driller Brake Lining Relationship Specialty Start Date End Date Name, MD Nitin [address] [place] [phone] PCP - General Family Medicine 08/26/17 [facility] 09/01/24 documented as of this encounter
--- OUTSIDE RECORDS SUMMARY | 2025-08-29 20:53 | XMS_ITS | Encounter Summary ---
Author Organization [employer] Address 75 [facility] 7t [place] [address] Care Team Providers Care Tin Plater Name Role Phone Name, Nitin PIKE Primary Care Provider [phone] Encounter Details Date Type Department Care Team (Late Contact Info) Description 08/08/2023 Telephone [facility] MED[facility] [address] [place] [address] [phone] Name, MD Nitin [address] [place] [address] [phone] Social History Tobacco Use Types Packs/Day Years [...] Description 09/06/2025 1:30 PM EDT Office Visit [facility] MED[facility] [address] [place] [address] [phone] Thea Warren FNP [address] [place] [address] [phone] 11/07/2025 10:00 AM EST Office Visit [facility] 230 [place] [address] Name, MD Nitin 230 [place] [address] documented as of this encounter Visit Diagnoses Not on filedocumented in this encounter Additional Health Concerns Assessment Noted Time PHQ-9 Depression Total Score: 12 023 9:37 AM EDT documented as of this encounter Care Teams Tin Plater Relationship Specialty Start Date End Date Name, MD Nitin 230 [place] [address] PCP - General Family Medicine 08/26/17 [facility] 09/01/24 documented as of this encounter
--- OUTSIDE RECORDS SUMMARY | 2025-08-29 20:53 | XMS_ITS | Encounter Summary ---
Author Organization [employer] Address 75 [facility] 7t [place] [address] Care Team Providers Care Hand Molder Name Role Phone Name, Nitin PIKE Primary Care Provider [phone] Reason for Visit * Reason Comments Med Refill Encounter Details Date Type Department Care Team (Late st Contact Info) Description 01/09/2025 Refill [facility] 230 [place], [place] [phone] Name, MD Nitin 230 [place] [address] Hypertension, unspecified type Social History Tobacco Use [...] 1:30 PM EDT Office Visit [facility] MED[facility] [address] [place] [address] Thea Warren FNP [address] [place] [address] 11/07/2025 10:00 AM EST Office Visit [facility] [address] [place] [address] NameNitin MD [address] [place] [address] documented as of this encounter Visit Diagnoses Diagnosis Hypertension, unspecified type documented in this encounter Additional Health Concerns Assessment Noted Time PHQ-9 Depression Total Score: 6 02/13/20 24 9:14 AM EDT documented as of this encounter Care Teams Hand Molder Relationship Specialty Start Date End Date Nitin Echevarria MD [address] [place] [address] PCP - General Family Medicine 08/26/17 [facility] 09/01/24 documented as of this encounter
--- OUTSIDE RECORDS SUMMARY | 2025-08-29 20:53 | XMS_ITS | Clinical Summary ---
Author Organization [facility] Facility Address [address] [address] Care Team Providers Care Mechatronics Technician Name Role Phone Name, Nitin PIKE Primary Care Provider [phone] Allergies Active Allergy Reactions Criticality Noted Date [...] patient's age to complete this topic [place] [address] MCR ([id number]) SARA PHILLIPS [id number] [facility] MCR ([id number]) Care Teams Mechatronics Technician Relationship Specialty Start Date End Date Name, MD Nitin [address] [place] [address] PCP - General Internal Medicine 10/15/22
--- OUTSIDE RECORDS SUMMARY | 2025-08-29 20:53 | XMS_ITS | Encounter Summary ---
Author Organization [employer] Address 75 [facility] 7t [place] [address] Care Team Providers Care First Assistant Name Role Phone Name, Nitin PIKE Primary Care Provider [phone] Reason for Visit * Reason Onset Date Comments triage 12/18/2022 Encounter Details Date Type Department Care Team ([facility] st Contact Info) Description 12/18/2022 Telephone [facility] MEDICINE 230 [place], [place] [phone] Name, MD Nitin 230 [place] [address] triage Social History Tobacco Use Types Packs/Day [...] 12/18/2022 2:35 PM EST Called pt. Via [employer] medical interpreter [id number] Eduardo. Pt. States that she has a [...] phone. Please reach out to pt. With Greenlandic speaking another time to see what her [...] Description 09/06/2025 1:30 PM EDT Office Visit [address] [address] Thea Warren FNP [address] [place] [address] 11/07/2025 10:00 AM EST Office Visit [address] [address] Name, MD Nitin [address] [place] [address] documented as of this encounter Visit Diagnoses Not on filedocumented in this encounter Care Teams First Assistant Relationship Specialty Start Date End Date Name, MD Nitin [address] [place] [address] PCP - General Family Medicine 08/26/17 [facility] 09/01/24 documented as of this encounter
--- OUTSIDE RECORDS SUMMARY | 2025-08-29 20:53 | XMS_ITS | Encounter Summary ---
Author Organization [employer] Address 75 [facility] 7[address] [place] [address] Care Team Providers Care Cisco Consultant Name Role Phone Name, Nitin PIKE Primary Care Provider [phone] Encounter Details Date Type Department Care Team ([facility] Contact Info) Description 12/17/2022 Orders Only [facility] CH[facility] MED & PEDS [address] [place], [place] [phone] Lisha Kelly LPN Social History Tobacco Use [...] 1:30 PM EDT Office Visit [facility] MEDICINE [address] [place] [address] Thea Warren FNP 230 [place] [address] 11/07/2025 10:00 AM EST Office Visit [facility] MEDICINE [address] [place] [address] NameNitin MD 230 [place] [address] documented as of this encounter Visit Diagnoses Not on filedocumented in this encounter Care Teams Cisco Consultant Relationship Specialty Start Date End Date Name, MD Nitin 230 [place] [address] PCP - General Family Medicine 08/26/17 [facility] 09/01/24 documented as of this encounter
--- OUTSIDE RECORDS SUMMARY | 2025-08-29 20:53 | XMS_ITS | Encounter Summary ---
Author Organization [employer] Address [address] [facility] 7[address] [place] [address] Care Team Providers Care Supervisor Major Appliance Assembly Name Role Phone Name, Nitin PIKE Primary Care Provider [phone] Encounter Details Date Type Department Care Team ([facility] st Contact Info) Description 05/26/2023 Orders Only [facility] MEDICINE 230 [place] [address] Noreen Fox MD 230 [place] [address] Social History Tobacco Use Types Packs/Day Years [...] Upcoming Encounters Date Type Department Care Team ([facility] st Contact Info) Description 09/06/2025 1:30 PM EDT Office Visit [facility] 230 [place] [address] Thea Warren FNP 230 [place] [address] 11/07/2025 10:00 AM EST Office Visit [facility] 230 [place] [address] Name, [place] [address] documented as of this encounter Visit Diagnoses Not on filedocumented in this encounter Care Teams Supervisor Major Appliance Assembly Relationship Specialty Start Date End Date Name, [place] [address] PCP - General Family Medicine 08/26/17 [facility] 09/01/24 documented as of this encounter
--- OUTSIDE RECORDS SUMMARY | 2025-08-29 20:53 | XMS_ITS | Encounter Summary ---
Author Organization [employer] Address 75 [facility] 7t [place] [address] Care Team Providers Care Batter Scaler Name Role Phone Name, Nitin PIKE Primary Care Provider [phone] Reason for Visit * Reason Comments Med Refill Encounter Details Date Type Department Care Team (Late st Contact Info) Description 08/16/2024 Refill [facility] MED & PEDS [address] [place], [place] [phone] Name, MD Nitin 230 [place] [address] Heartburn Social History Tobacco Use Types Packs/Day [...] 1:30 PM EDT Office Visit [facility] MED[facility]INE [address] [place] [address] Thea Warren FNP [address] [place] [address] 11/07/2025 10:00 AM EST Office Visit [address] [address] NameNitin MD [address] [place] [address] documented as of this encounter Visit Diagnoses Diagnosis Heartburn documented in this encounter Additional Health Concerns Assessment Noted Time PHQ-9 Depression Total Score: 6 02/13/20 24 9:14 AM EDT documented as of this encounter Care Teams Batter Scaler Relationship Specialty Start Date End Date Nitin Echevarria MD [address] [place] [address] PCP - General Family Medicine 08/26/17 [facility] 09/01/24 documented as of this encounter
--- OUTSIDE RECORDS SUMMARY | 2025-08-29 20:53 | XMS_ITS | Encounter Summary ---
Author Organization [employer] Address 75 [facility] 7[address] [place] [address] Care Team Providers Care Electric Dolly Operator Name Role Phone Name, Nitin PIKE Primary Care Provider [phone] Reason for Visit * Reason Onset Date Comments Call Back Request 03/14/2025 Encounter Details Date Type Department Care Team ([facility] st Contact Info) Description 03/14/2025 Telephone [facility] 230 [place], [place] [phone] Name, MD Nitin 230 [place] [address] Call Back Request Social History Tobacco Use [...] Visit [facility] MED[facility]INE [address] [place] [address] Thea Warren FNP 230 [place] [address] 11/07/2025 10:00 AM EST Office Visit [facility] 230 [place] [address] Name, MD Nitin 230 [place] [address] documented as of this encounter Visit Diagnoses Not on filedocumented in this encounter Additional Health Concerns Assessment Noted Time PHQ-9 Depression Total Score: 6 02/13/20 24 9:14 AM EDT documented as of this encounter Care Teams Electric Dolly Operator Relationship Specialty Start Date End Date Name, MD Nitin 230 [place] [address] PCP - General Family Medicine 08/26/17 [facility] 09/01/24 documented as of this encounter
--- OUTSIDE RECORDS SUMMARY | 2025-08-29 20:53 | XMS_ITS | Encounter Summary ---
Author Organization [employer] Address 75 [facility] 7[address] [place] [address] Care Team Providers Care Automotive Window Tinter Name Role Phone Name, Nitin PIKE Primary Care Provider [phone] Reason for Visit * Reason Onset Date Comments FYI 01/21/2024 ER Follow-up 01/21/2024 Encounter Details Date Type Department Care Team ([facility] st Contact Info) Description 01/21/2024 Telephone [facility] MEDICINE 230 [place], [place] [phone] Name, MD Nitin 230 [place] [address] FYI; ER Follow-up Social History Tobacco Use [...] - 01/21/2024 1:54 PM EDT Message from [facility] ED noted. [facility] note sent to medical records. PCP does not rx Trazodone. Pt to f/u with psych prescriber. Pt is scheduled for f/u with pcp 02/13/24. * Telephone Encounter - Janette Huitron - 01/21/2024 9:45 AM EDT Tc from [facility]ata with [facility] ED calling in regards to pt. [...] 1:30 PM EDT Office Visit [facility] MEDICINE [address] [place] [address] Thea Warren FNP 230 [place] [address] 11/07/2025 10:00 AM EST Office Visit [facility] MEDICINE [address] [place] [address] Name, MD Nitin 230 [place] [address] documented as of this encounter Visit Diagnoses Not on filedocumented in this encounter Additional Health Concerns Assessment Noted Time PHQ-9 Depression Total Score: 12 023 9:37 AM EDT documented as of this encounter Care Teams Automotive Window Tinter Relationship Specialty Start Date End Date Name, MD Nitin 230 [place] [address] PCP - General Family Medicine 08/26/17 [facility] 09/01/24 documented as of this encounter
--- OUTSIDE RECORDS SUMMARY | 2025-08-29 20:53 | XMS_ITS | Encounter Summary ---
Author Organization [employer] Address 75 [facility] 7t [place] [address] Care Team Providers Care Crotch Breaker Name Role Phone Name, Nitin PIKE Primary Care Provider [phone] Reason for Visit * Reason Onset Date Comments Results 08/29/2023 Encounter Details Date Type Department Care Team ([facility] st Contact Info) Description 08/29/2023 Telephone [facility] MEDICINE 230 [place], [place] [phone] Name, MD Nitin 230 [place] [address] Results Social History Tobacco Use Types Packs/Day [...] 09/01/2023 11:51 AM EDT Pt evaluated in [facility] today and is scheduled with pcp 09/03/23. * Telephone Encounter - Janette Huitron - 08/29/2023 4:06 PM EDT Tc from pt requesting a call in regards to urine results. Please contact pt at [phone] (Iranian) documented in this encounter Plan of Treatment Upcoming Encounters Date Type Department Care Team (Late st Contact Info) Description 09/06/2025 1:30 PM EDT Office Visit [facility] MEDICINE [address] [place] [address] Thea Warren FNP 230 [place] [address] 11/07/2025 10:00 AM EST Office Visit [address] [address] Name, MD Nitin [address] [place] [address] documented as of this encounter Visit Diagnoses Not on filedocumented in this encounter Additional Health Concerns Assessment Noted Time PHQ-9 Depression Total Score: 12 023 9:37 AM EDT documented as of this encounter Care Teams Crotch Breaker Relationship Specialty Start Date End Date Name, MD Nitin 230 [place] [address] PCP - General Family Medicine 08/26/17 [facility] 09/01/24 documented as of this encounter
--- OUTSIDE RECORDS SUMMARY | 2025-08-29 20:53 | XMS_ITS | Encounter Summary ---
Author Organization [employer] Address 75 [facility] 7t [place] [address] Care Team Providers Care Champion Of Sustainable Design Name Role Phone Name, Nitin PIKE Primary Care Provider [phone] Reason for Visit * Reason Comments Med Refill Encounter Details Date Type Department Care Team ([facility] st Contact Info) Description 06/28/2024 Refill [facility] 230 [place], [place] [phone] Mel Anguiano FNP 230 [place] [address] Social History Tobacco Use Types Packs/Day Years [...] Description 09/06/2025 1:30 PM EDT Office Visit [facility] MEDICINE [address] [place] [address] Thea Warren FNP [address] [place] [address] 11/07/2025 10:00 AM EST Office Visit [address] [address] NameNitin MD [address] [place] [address] documented as of this encounter Visit Diagnoses Not on filedocumented in this encounter Additional Health Concerns Assessment Noted Time PHQ-9 Depression Total Score: 6 02/13/20 24 9:14 AM EDT documented as of this encounter Care Teams Champion Of Sustainable Design Relationship Specialty Start Date End Date Nitin Echevarria MD [address] [place] [address] PCP - General Family Medicine 08/26/17 [facility] 09/01/24 documented as of this encounter
--- OUTSIDE RECORDS SUMMARY | 2025-08-29 20:53 | XMS_ITS | Encounter Summary ---
Author Organization [employer] Address 75 [facility] 7[address] [place] [address] Care Team Providers Care Post Office Markup Clerk Name Role Phone Name, Nitin PIKE Primary Care Provider Reason for Visit * Reason Comments Med Refill Encounter Details Date Type Department Care Team (Late st Contact Info) Description 07/25/2025 Refill [facility] CH[facility] MED & PEDS [address] [place], [place] [phone] Name, MD Nitin 230 [place] [address] Social History Tobacco Use Types Packs/Day Years [...] 1:30 PM EDT Office Visit [facility] MEDICINE [address] [place] [address] Thea Warren FNP [address] [place] [address] 11/07/2025 10:00 AM EST Office Visit [facility] MEDICINE [address] [place] [address] NameNitin MD [address] [place] [address] documented as of this encounter Visit Diagnoses Not on filedocumented in this encounter Additional Health Concerns Assessment Noted Time PHQ-9 Depression Total Score: 3 04/29/20 25 9:41 AM EDT documented as of this encounter Care Teams Post Office Markup Clerk Relationship Specialty Start Date End Date Nitin Echevarria MD [address] [place] [address] PCP - General Family Medicine 08/26/17 [facility] 09/01/24 documented as of this encounter
--- OUTSIDE RECORDS SUMMARY | 2025-08-29 20:54 | XMS_ITS | Encounter Summary ---
Author Organization [employer] Address 75 [facility] 7t [place] [address] Care Team Providers Care Manager Sales And Marketing Name Role Phone Name, Nitin PIKE Primary Care Provider Reason for Visit * Reason Onset Date Comments Verbal Orders 12/15/2023 Encounter Details Date Type Department Care Team ([facility] st Contact Info) Description 12/15/[address] [facility] MEDICINE 230 [place], [place] [phone] Name, MD Nitin 230 [place] [address] Verbal Orders Social History Tobacco Use Types [...] 12:03 PM EST Tc from [facility] with [facility] requesting verbal order to see pt 2 times a week for 4 weeks for Occupational Therapy, please contact J[facility] at [phone] documented in this encounter Plan of Treatment Upcoming Encounters Date Type Department Care Team (Late st Contact Info) Description 09/06/2025 1:30 PM EDT Office Visit [address] [address] Thea Warren FNP [address] [place] [address] 11/07/2025 10:00 AM EST Office Visit [address] [address] Name, MD Nitin [address] [place] [address] documented as of this encounter Visit Diagnoses Not on filedocumented in this encounter Additional Health Concerns Assessment Noted Time PHQ-9 Depression Total Score: 12 023 9:37 AM EDT documented as of this encounter Care Teams Manager Sales And Marketing Relationship Specialty Start Date End Date Nitin Echevarria MD [address] [place] [address] PCP - General Family Medicine 08/26/17 [facility] 09/01/24 documented as of this encounter
--- OUTSIDE RECORDS SUMMARY | 2025-08-29 20:54 | XMS_ITS | Encounter Summary ---
Author Organization [employer] Address 75 [facility] 7t [place] [address] Care Team Providers Care Four Roll Calender Operator Name Role Phone Name, Nitin PIKE Primary Care Provider [phone] Reason for Visit * Reason Onset Date Comments Verbal Orders 01/02/2024 Encounter Details Date Type Department Care Team ([facility] st Contact Info) Description 01/02/[address] [facility] MEDICINE 230 [place], [place] [phone] Name, MD Nitin 230 [place] [address] Verbal Orders Social History Tobacco Use Types [...] No answer. LVM to call back on [phone]. * Telephone Encounter - Melany Santos RN - 01/06/2024 10:25 AM EST Please review and advise for below request. * Telephone Encounter - Deana Bazzi - 01/02/2024 3:44 PM EST Tc from [facility] with [facility] requesting verbal orders for discharge pt from Occupational Therapy, due to pt refuses services, please contact [facility] at [phone]. documented in this encounter Plan of Treatment Upcoming Encounters Date Type Department Care Team (Late st Contact Info) Description 09/06/2025 1:30 PM EDT Office Visit [facility] MEDICINE [address] [place] [address] Thea Warren FNP [address] [place] [address] 11/07/2025 10:00 AM EST Office Visit [address] [address] Name, MD Nitin [address] [place] [address] documented as of this encounter Visit Diagnoses Not on filedocumented in this encounter Additional Health Concerns Assessment Noted Time PHQ-9 Depression Total Score: 12 023 9:37 AM EDT documented as of this encounter Care Teams Four Roll Calender Operator Relationship Specialty Start Date End Date NameNitin MD [address] [place] [address] [phone] PCP - General Family Medicine 08/26/17 [facility] 09/01/24 documented as of this encounter
--- OUTSIDE RECORDS SUMMARY | 2025-08-29 20:54 | XMS_ITS | Encounter Summary ---
Author Organization [employer] Address 75 [facility] 7[address] [place] [address] Care Team Providers Care Garland Machine Operator Name Role Phone Name, Nitin PIKE Primary Care Provider [phone] Reason for Visit * Reason Comments Med Refill Encounter Details Date Type Department Care Team (Late Contact Info) Description 03/02/2023 Refill [facility] MEDICINE 230 [place] [address] Karely Patiño MD 505 [place], [place] [phone] Social History Tobacco Use Types Packs/Day Years [...] Description 09/06/2025 1:30 PM EDT Office Visit [facility] MEDICINE 230 [place] [address] Thea Warren FNP 230 [place], [place] [phone] 11/07/2025 10:00 AM EST Office Visit [facility] MED[facility] 230 [place] [address] Name, [place] [address] documented as of this encounter Visit Diagnoses Not on filedocumented in this encounter Care Teams Garland Machine Operator Relationship Specialty Start Date End Date Name, [place] [address] PCP - General Family Medicine 08/26/17 [facility] 09/01/24 documented as of this encounter
--- OUTSIDE RECORDS SUMMARY | 2025-08-29 20:54 | XMS_ITS | Encounter Summary ---
Author Organization [employer] Address 75 [facility] 7[address] [place] [address] Care Team Providers Care Aviation Boatswain'S Mate Name Role Phone NameNitin MD Primary Care Provider [phone] Encounter Details Date Type Department Care Team ([facility] Contact Info) Description 01/06/2023 Orders Only [facility] CH[facility] MED & PEDS [address] [place], [place] [phone] Lisha Kelly LPN Social History Tobacco Use [...] Description 09/06/2025 1:30 PM EDT Office Visit [facility] MEDICINE [address] [place] [address] [phone] Thea Warren FNP 230 [place], [place] [phone] 11/07/2025 10:00 AM EST Office Visit [address] [phone] Name, MD Nitin 230 [place] [address] documented as of this encounter Visit Diagnoses Not on filedocumented in this encounter Care Teams Aviation Boatswain'S Mate Relationship Specialty Start Date End Date Name, MD Nitin 230 [place] [address] PCP - General Family Medicine 08/26/17 [facility] 09/01/24 documented as of this encounter
== END 2025-08-29 18:09 | disposition home or self-care (01) ==
PROVIDERS: Physician Assistant; Emergency Provider Student in an Organized Health Care Education/Training Program
DX: F41.1 Generalized anxiety disorder (principal); I10 Essential (primary) hypertension
CPT/HCPCS: 36415; 80048; 83735; 85025; 99282; 99283

== ENCOUNTER 2025-09-03 12:34 | Emergency (ER) | payer OTHER, SELFPAY ==
[2025-09-03] VITALS (11 sets, daily range): BP systolic 101–150; BP diastolic 62–90; PULSE 70–103; RESP 16; TEMP 36.7–37.1; O2SAT 95–99; BMI 33.6
--- NOTE | ~2025-09-03 | CT_ITS ---
CLINICAL HISTORY: fall, head strike CT cervical spine without contrast Comparison: 05/04/2025 Findings: Normal limited view of the intracranial contents. Soft tissues of the neck are normal. Lung apices are normal. Normal vertebral body alignment. No fractures or dislocations. Diffuse cervical degenerative changes are present, most significant at C5-6 level. Impression: 1. No cervical vertebral fracture or traumatic malalignment. This document has been electronically signed by: Ash Sherman MD on 09/03/2025 14:51:06
--- NOTE | ~2025-09-03 | CT_ITS ---
CLINICAL HISTORY: fall, head strike CT head without contrast Comparison: CT/SR - CT HEAD/BRAIN WO IV CON - 05/04/2025 10:16 PM EDT Findings: No intracranial mass, midline shift, hydrocephalus, or acute hemorrhage. No CT evidence of acute ischemia. Visualized paranasal sinuses and mastoid air cells normal. Orbits unremarkable. No skull fracture. Impression: 1. No acute intracranial abnormalities. This document has been electronically signed by: Ash Sherman MD on 09/03/2025 14:51:18
--- NOTE | 2025-09-03 13:01 | ED.GENADULT ---
HPI - General Adult General Chief complaint: Fall Stated complaint: fall h/s -LOC Time Seen by Provider: 09/03/25 13:01 Source: patient and EMS Mode of arrival: EMS Limitations: language barrier (DIVEHI) History of Present Illness ED Provider: JUDSON LINDSAY PA-C HPI narrative: 79 year old female with pmhx significant for HTN, HLD, anxiety, OA, dementia, SVT, CKD, PE previously on Eliquis presents to the ED today via EMS for evaluation s/p fall this morning. Patient states that she was having an episode of her vertigo, causing her to fall back and strike the back of her head on the ground. No LOC. She states she was able to stand and ambulate herself after the fall. Admits to contacting EMS. On arrival, EMS placed patient in cervical collar. Patient continues to endorse vertigo, describes this as a room spinning sensation. Endorses posterior head pain and neck pain. Denies sustaining any other injury. Denies vision changes, chest pain, shortness of breath, palpitations. Related Data Home Medications ?Medication ?Instructions ?Recorded ?Confirmed omeprazole 20 mg tablet,delayed 20 mg PO DAILY@0630 08/09/20 08/22/25 release aspirin 81 mg tablet,delayed 81 mg PO QAM 01/28/24 08/22/25 release bisacodyl 5 mg tablet,delayed 5 mg PO DAILY PRN constipation 01/28/24 08/22/25 release ferrous sulfate 325 mg (65 mg 325 mg PO DAILY 01/28/24 08/22/25 iron) tablet (FeroSul) melatonin 10 mg tablet,extended 10 mg PO BEDTIME PRN Insomnia 01/28/24 08/22/25 release multivitamin 1 tab PO QAM 01/28/24 08/22/25 rosuvastatin 20 mg tablet 20 mg PO BEDTIME 01/28/24 08/22/25 trazodone 50 mg tablet 50 mg PO BEDTIME 01/28/24 08/22/25 amlodipine 10 mg tablet 10 mg PO DAILY 02/09/24 08/22/25 acetaminophen 500 mg tablet 500 mg PO Q8H PRN pain 08/09/24 08/22/25 cholecalciferol (vitamin D3) 25 25 mcg PO DAILY 08/20/24 08/22/25 mcg (1,000 unit) tablet sertraline 100 mg tablet 100 mg PO DAILY 03/16/25 08/22/25 apixaban 5 mg tablet 5 mg PO BID 08/22/25 08/22/25 clonazepam 0.5 mg tablet 0.5 mg PO TID 08/22/25 08/22/25 fluticasone propionate 50 2 spray intranasal DAILY PRN 08/22/25 08/22/25 mcg/actuation nasal Allergic Symptoms spray,suspension (Flonase Allergy Relief) hydroxyzine HCl 25 mg tablet 10 mg PO DAILY PRN anxiety 08/22/25 08/22/25 ketotifen fumarate 0.025 % (0.035 1 drp ophthalmic (eye) BID PRN 08/22/25 08/22/25 %) eye drops allergies mirtazapine 45 mg tablet 45 mg PO BEDTIME 08/22/25 08/22/25 valsartan 160 mg tablet 160 mg PO QPM 08/22/25 08/22/25 Previous Rx's ?Medication ?Instructions ?Recorded metoprolol succinate 50 mg 50 mg PO DAILY #90 tabs 09/28/20 tablet,extended release 24 hr docusate sodium 100 mg capsule 200 mg (2 x 100 mg) PO BID #20 caps 02/24/25 (Colace) ibuprofen 200 mg tablet 200 mg PO Q6H PRN pain #20 tabs 07/24/25 meclizine 12.5 mg tablet 12.5 mg PO TID PRN dizziness or 07/26/25 vertigo #30 tabs Allergies Allergy/AdvReac Type Severity Reaction Status Date / Time penicillin G (Penicillin G) Allergy Severe ITCHY/RASH Verified 09/03/25 13:09 Sulfa (Sulfonamide Allergy Severe ITCHY,RASH, Verified 09/03/25 13:09 Antibiotics) (Sulfa rash (Sulfonamides)) trimethoprim (From Bactrim) Allergy Severe HIVES Verified 09/03/25 13:09 Penicillins Allergy Intermediate Hives Verified 09/03/25 13:09 sulfamethoxazole (From Allergy Mild Hives Verified 09/03/25 13:09 Bactrim) Review of Systems Review of Systems: Yes all other systems are reviewed and are negative PMFSH Past Medical History Attestation statement: The following information was validated with the patient. 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) Alcohol intake: never Patient Tobacco Use Status: Never used Tobacco Advance Directives Date on File: 01/28/24 service: No Physical Exam ED Vital Signs: Vital Signs - 24 hr 09/03/25 13:07 09/03/25 14:19 09/03/25 15:30 Temperature 98.1 F 98.3 F Pulse Rate 76 72 71 Respiratory Rate 16 Blood Pressure 125/69 119/63 142/76 H Pulse Oximetry 95 96 Oxygen Delivery Method Room Air Room Air 09/03/25 15:30 09/03/25 15:30 09/03/25 15:31 Temperature Pulse Rate 76 70 76 Respiratory Rate Blood Pressure 123/77 132/67 135/74 Pulse Oximetry Oxygen Delivery Method 09/03/25 15:32 09/03/25 15:33 09/03/25 17:11 Temperature Pulse Rate 74 74 103 H Respiratory Rate Blood Pressure 112/62 101/62 140/87 H Pulse Oximetry Oxygen Delivery Method 09/03/25 17:12 09/03/25 17:13 09/03/25 17:24 Temperature 98.7 F Pulse Rate 76 74 74 Respiratory Rate 16 Blood Pressure 130/79 126/79 126/79 Pulse Oximetry 95 Oxygen Delivery Method Room Air BMI result Body Mass Index 33.6 vital signs stable General: well appearing, in no acute distress. Skin: Warm, dry, intact. No rashes or lesions. Head: Normocephalic, atraumatic. EENT: Hearing is intact b/l. Conjunctiva clear. PERRLA. EOM intact. Moist mucous membranes.? Cardiac: Chest wall symmetric. RRR Lungs: Normal respiratory effort without accessory muscle use. CTA bilaterally Abdomen: Soft, non-tender, non-distended. No rebound tenderness or guarding. Positive BS x4. Back: No midline spinous or paraspinal tenderness. No step off deformity. Ext: Upper and lower extremities atraumatic, without tenderness, deformity, swelling or erythema Neuro: AOx3. Normal speech. NIH 0. normal finger to nose, heel to nieves. Ambulating with steady gait. Course Course Course Narrative: CBC without leukocytosis or left shift. normocytic anemia, h&h around baseline when compared to priors - above transfusion threshold. chemistry without acute electrolyte abnormality requiring intervention. no FELY. liver function wnl. troponin undetectable. head/ c spine cts unremarkable. ortho vitals positive - treated w/ 2L IVF with improvement. she is no longer dizzy. anxious for discharge home. i feel this is reasonable. Patient has remained stable throughout ED visit today. Discussed worrisome signs and symptoms and when to return to the ED. All questions answered at this time. Patient is agreeable with disposition and stable for discharge. Medications Administered Discontinued Medications Generic Name Dose Route Start Last Admin Trade Name Freq PRN Reason Stop Dose Admin Sodium Chloride 1,000 mls @ 999 mls/hr 09/03/25 14:00 09/03/25 15:54 Ns IV 09/03/25 15:00 Infused .Q1H1M DENISA Infusion Sodium Chloride 1,000 mls @ 999 mls/hr 09/03/25 16:00 09/03/25 17:04 Ns IV 09/03/25 17:00 Infused .Q1H1M DENISA Infusion Meclizine HCl 25 mg 09/03/25 13:47 09/03/25 14:26 Meclizine Hcl 25 Mg Tablet PO 09/03/25 13:48 25 mg ONCE ONE Administration Medical Decision Making Medical Decision Making [facility] Narrative: 79 year old female with pmhx significant for HTN, HLD, anxiety, OA, dementia, SVT, CKD, PE previously on Eliquis presents to the ED today via EMS for evaluation s/p fall this morning. Differential diagnoses includes: anemia, electrolyte abnormality, hypoglycemia, orthostatic hypotension, dehydration, medication side effect, BPPV vs labrynthitis. No red flag features for central vertigo to include gradual onset, vertical/bidirectional or nonfatigable nystagmus, focal neurologic findings on exam (including inability to ambulate). Presentation not consistent with an acute ENTRY LEVEL ACCOUNT REPRESENTATIVE infection, vertebral basilar artery insufficiency, cerebellar hemorrhage or infarction,?intracranial mass or bleed, temporal lobe epilepsy,?MS, trauma, complex migraine headache. I have also considered ACS, arrhythmia, PE (PERC ), pneumonia, UTI. Plan: labs, ekg, trial of IVF +meclizine, supportive care, serial reassessment Differential Diagnosis Differential Diagnoses: The differential diagnosis associated with the presentation includes as above. Admission/Observation not indicated. Lab Data MDM Lab Attestation statement: I reviewed the patient's lab results. as above. 09/03/25 14:08 09/03/25 14:08 Labs: Lab Results 09/03/25 Range/Units 14:08 WBC 7.5 (4.8-10.8) X10*3/uL RBC 3.89 L (4.20-5.50) X10*6/uL Hgb 10.9 L (12.0-16.0) g/dl Hct 32.7 L (37.0-47.0) % MCV 84.1 (80.0-98.0) fL MCH 28.0 (27.0-33.0) pg MCHC 33.3 (31.0-35.0) g/dl RDW 14.0 (11.0-16.0) % Plt Count 278 (160-400) X10*3/uL MPV 8.4 L (9.4-12.3) fL Immature Gran % (Auto) 0.4 (0.0-0.4) % Neut % (Auto) 65.2 (45-73) % Lymph % (Auto) 21.8 (20-40) % [place] % (Auto) 10.5 (2-11) % Eos % (Auto) 1.6 (0-4) % Baso % (Auto) 0.5 (0-2) % Lymph # (Auto) 1.6 (1.2-4.9) X10*3/uL [place] # (Auto) 0.8 (0.1-1.2) X10*3/uL Eos # (Auto) 0.1 (0.0-0.4) X10*3/uL Baso # (Auto) 0.0 (0.0-0.2) X10*3/uL Abs Immat Gran (auto) 0.03 (0.00-0.03) X10*3/uL Absolute Neuts (auto) 4.9 (2.0-8.3) x10*3/uL Absolute Nucleated RBC 0.000 (0.0-0.012) X10*3/uL Nucleated RBC % (auto) 0.0 (0.0-0.2) /100WBC Sodium 139 (135-145) mmol/L Potassium 4.1 (3.3-5.1) mmol/L Chloride 105 (96-108) mmol/L Carbon Dioxide 28 (22-29) mmol/L Anion Gap 10 L (12-20) BUN 24 H (9-16) mg/dL Creatinine 1.04 (0.5-1.4) mg/dL Estim Creat Clear Calc 45.7 Estimated GFR 51 Random Glucose 105 (60-115) mg/dL Calcium 8.9 (8.4-10.2) mg/dL Magnesium 2.0 (1.6-2.6) mg/dL Total Bilirubin 0.2 (0.0-1.0) mg/dL AST 27 (5-31) U/L ALT 18 (0-31) U/L Alkaline Phosphatase 81 (39-117) U/L Troponin I High Sens < 2.7 (<3.5-17.0) ng/L Total Protein 7.7 (6.5-8.0) g/dL Albumin 4.0 (3.5-5.0) g/dL Independent Interpretation I performed an independent interpretation of an: EKG and CT Scan Interpretation: ct head without bleed or skull fracture ct cervical spine without fracture ekg showing NSR, rate 75 bpm, no acute ischemic changes or st elevations Radiology Impression Discussion of test interpretation with radiology: I have reviewed the radiologist's reading. Radiologist Impression: Procedure(s): CT head/brain wo IV con Accession Number(s): [id number] cc: Dyana Andrews; Name,Nitin PIKE~ Report Number: [id number]: Total DLP = 0.00 mGy-cm Reason for Exam: fall, head strike CLINICAL HISTORY: fall, head strike CT head without contrast Comparison: CT/SR - CT HEAD/BRAIN WO IV CON - 05/04/2025 10:16 PM EDT Findings: No intracranial mass, midline shift, hydrocephalus, or acute hemorrhage. No CT evidence of acute ischemia. Visualized paranasal sinuses and mastoid air cells normal. Orbits unremarkable. No skull fracture. Impression: 1. No acute intracranial abnormalities. This document has been electronically signed by: Ash Sherman MD on 09/03/2025 14:51:18 Procedure(s): CT cervical spine wo IV con Accession Number(s): [id number] cc: Dyana Andrews; Name,Nitin PIKE~ Report Number: [id number]: Total DLP = 1246.00 mGy-cm Reason for Exam: fall, head strike CLINICAL HISTORY: fall, head strike CT cervical spine without contrast Comparison: 05/04/2025 Findings: Normal limited view of the intracranial contents. Soft tissues of the neck are normal. Lung apices are normal. Normal vertebral body alignment. No fractures or dislocations. Diffuse cervical degenerative changes are present, most significant at C5-6 level. Impression: 1. No cervical vertebral fracture or traumatic malalignment. This document has been electronically signed by: Ash Sherman MD on 09/03/2025 14:51:06 Independent Historian Clinical information obtained from an independent historian. History obtained from or confirmed by: EMS External Record Review External record reviewed: Inpatient record Chronic Conditions Patient?s care impacted by: Other (vertigo) Social Determinants Patient?s care significantly limited by Social Determinants of Health including: Other Social Determinant of Health Critical Care Time Critical Care Time Critical Care Time: No Discharge Plan Discharge Clinical Impression: Fall, Dizziness Patient Disposition: Home, Self-Care Instructions: Dizziness (ED) Additional Instructions: You were evaluated in the ED today following a fall. Your workup is reassuring. You were blood pressure was noted to drop, which may have been causing or dizziness. This improved with 2 bags of IV fluids. Make sure you are drinking enough water throughout the day to prevent this. Go slowly and with caution when changing positions. Follow up with your primary care provider. Return with any new or worsening symptoms. In the case of an emergency call 911. Prescriptions: No Action metoprolol succinate 50 mg tablet extended release 24 hr 50 mg PO DAILY Qty: 90 2RF omeprazole 20 mg Tablet,Delayed Release (Dr/Ec) 20 mg PO DAILY@0630 meclizine 12.5 mg tablet 12.5 mg PO TID PRN (Reason: dizziness or vertigo) Qty: 30 0RF trazodone 50 mg tablet 50 mg PO BEDTIME ferrous sulfate [FeroSul] 325 mg (65 mg iron) tablet 325 mg PO DAILY bisacodyl 5 mg tablet,delayed release (DR/EC) 5 mg PO DAILY PRN (Reason: constipation) rosuvastatin 20 mg tablet 20 mg PO BEDTIME aspirin 81 mg tablet,delayed release (DR/EC) 81 mg PO QAM multivitamin Tablet 1 tab PO QAM melatonin 10 mg tablet extended release 10 mg PO BEDTIME PRN (Reason: Insomnia) cholecalciferol (vitamin D3) 25 mcg (1,000 unit) tablet 25 mcg PO DAILY acetaminophen 500 mg tablet 500 mg PO Q8H PRN (Reason: pain) docusate sodium [Colace] 100 mg capsule 200 mg PO BID Qty: 20 0RF ibuprofen 200 mg tablet 200 mg PO Q6H PRN (Reason: pain) Qty: 20 0RF ketotifen fumarate 0.025 % (0.035 %) drops 1 drp ophthalmic (eye) BID PRN (Reason: allergies) mirtazapine 45 mg tablet 45 mg PO BEDTIME clonazepam 0.5 mg tablet 0.5 mg PO TID hydroxyzine HCl 25 mg tablet 10 mg PO DAILY PRN (Reason: anxiety) fluticasone propionate [Flonase Allergy Relief] 50 mcg/actuation spray,suspension 2 spray intranasal DAILY PRN (Reason: Allergic Symptoms) Rx Instructions: administer into each nostril apixaban 5 mg tablet 5 mg PO BID valsartan 160 mg tablet 160 mg PO QPM sertraline 100 mg tablet 100 mg PO DAILY amlodipine 10 mg tablet 10 mg PO DAILY Referrals: Nitin Echevarria MD [Primary Care Provider, Internal Medicine] Interventions: ED Discharge Assessment Last Done: 09/03/25 17:24 Discharge Date/Time: 09/03/25 17:25 Print Language: Uruguayan
--- OUTSIDE RECORDS SUMMARY | 2025-09-03 13:26 | XMS_ITS | Encounter Summary ---
Author Organization [employer] Address [address] [facility] [address] [place] [address] Care Team Providers Care Director Of Recruitment Name Role Phone Name, Nitin PIKE Primary Care Provider [phone] Reason for Visit * Reason Comments Med Refill Encounter Details Date Type Department Care Team (Late st Contact Info) Description 04/20/2025 Refill [facility] [address] [place] [address] Zechariah Cheung MD [address] [place] [address] Allergic rhinitis, unspecified seasonality, unspecified trigger Social [...] Description 09/06/2025 1:30 PM EDT Office Visit [facility] [address] [place] [phone] Thea Warren FNP [address] [place] [phone] 11/07/2025 10:00 AM EST Office Visit [facility] [address] [place] [address] Nitin Echevarria MD [address] [place] [address] documented as of this encounter Visit Diagnoses Diagnosis Allergic rhinitis, unspecified seasonality, unspecified trigger documented in this encounter Additional Health Concerns Assessment Noted Time PHQ-9 Depression Total Score: 6 02/13/20 24 9:14 AM EDT documented as of this encounter Care Teams Director Of Recruitment Relationship Specialty Start Date End Date Nitin Echevarria MD [address] [place] [address], [place] [address] PCP - General Family Medicine 08/26/17 [facility] 09/01/24 documented as of this encounter
--- OUTSIDE RECORDS SUMMARY | 2025-09-03 13:26 | XMS_ITS | Encounter Summary ---
Author Organization [employer] Address [address] [facility] [address] [place] [address] Care Team Providers Care Personnel Assistant Name Role Phone Name, Nitin PIKE Primary Care Provider [phone] Reason for Visit * Reason Onset Date Comments Hospital Follow-up 10/20/2024 Encounter Details Date Type Department Care Team ([facility] Contact Info) Description 10/20/2024 Telephone [facility] [address] [place], [place] [phone] Name, MD Nitin [address] [place] [address] Hospital Follow-up Social History Tobacco Use Types [...] from pt requesting a HDF appt. Hospital: [facility] Date of admission: 10/17 Discharge date: 10/19 Diagnosed: High Blood Pressure and Fever Contact pt at [phone] *Send message to [place] Clinical Care Coordinators documented in this encounter Plan of Treatment Upcoming Encounters Date Type Department Care Team (Late st Contact Info) Description 09/06/2025 1:30 PM EDT Office Visit [facility] [address] [place] [address] Thea Warren FNP [address] [place] [address] 11/07/2025 10:00 AM EST Office Visit [facility] [address] [place] [address] Name, MD Nitin [address] [place] [address] documented as of this encounter Visit Diagnoses Not on filedocumented in this encounter Additional Health Concerns Assessment Noted Time PHQ-9 Depression Total Score: 6 02/13/20 24 9:14 AM EDT documented as of this encounter Care Teams Personnel Assistant Relationship Specialty Start Date End Date Name, MD Nitin [address] [place] [address] PCP - General Family Medicine 08/26/17 [facility] 09/01/24 documented as of this encounter
--- OUTSIDE RECORDS SUMMARY | 2025-09-03 13:26 | XMS_ITS | Encounter Summary ---
Author Organization [employer] Address [address] [facility] [address] [place] [address] Care Team Providers Care X Ray Equipment Mechanic Name Role Phone Name, Nitin PIKE Primary Care Provider [phone] Reason for Visit * Reason Onset Date Comments Med Refill 11/08/2024 Encounter Details Date Type Department Care Team ([facility] st Contact Info) Description 11/08/2024 Telephone [facility] [address] [place], [place] [phone] Name, MD Nitin [address] [place] [address] Med Refill Social History Tobacco Use Types [...] sent to: [facility] - [place], [place] - [address] [facility] documented in this encounter Plan of Treatment Upcoming Encounters Date Type Department Care Team ([facility] st Contact Info) Description 09/06/2025 1:30 PM EDT Office Visit [facility] [address] [place] [address] Thea Warren FNP [address] [place] [address] 11/07/2025 10:00 AM EST Office Visit [facility] [address] [place] [address] Name, [place] [address] documented as of this encounter Visit Diagnoses Not on filedocumented in this encounter Additional Health Concerns Assessment Noted Time PHQ-9 Depression Total Score: 6 02/13/20 24 9:14 AM EDT documented as of this encounter Care Teams X Ray Equipment Mechanic Relationship Specialty Start Date End Date Name, [place] [address] PCP - General Family Medicine 08/26/17 [facility] 09/01/24 documented as of this encounter
--- OUTSIDE RECORDS SUMMARY | 2025-09-03 13:27 | XMS_ITS | Encounter Summary ---
Author Organization [employer] Address [address] [facility] [address] [place] [address] Care Team Providers Care Sonographer Name Role Phone Name, Nitin PIKE Primary Care Provider [phone] Reason for Visit * Reason Comments Med Refill Encounter Details Date Type Department Care Team ([facility] st Contact Info) Description 04/01/2024 Refill [facility] [address] [place], [place] [phone] Name, MD Nitin [address] [place] [address] Rash Social History Tobacco Use Types Packs/Day [...] Description 09/06/2025 1:30 PM EDT Office Visit [facility] [address] [place] [phone] Thea Warren FNP [address] [place] [address] 11/07/2025 10:00 AM EST Office Visit [address] [address] Name, MD Nitin [address] [place] [address] documented as of this encounter Visit Diagnoses Diagnosis Rash Rash and other nonspecific skin eruption documented in this encounter Additional Health Concerns Assessment Noted Time PHQ-9 Depression Total Score: 6 02/13/20 9:14 AM EDT documented as of this encounter Care Teams Sonographer Relationship Specialty Start Date End Date NameNitin MD [address] [place] [address] PCP - General Family Medicine 08/26/17 [facility] 09/01/24 documented as of this encounter
--- OUTSIDE RECORDS SUMMARY | 2025-09-03 13:27 | XMS_ITS | Encounter Summary ---
Author Organization [employer] Address [address] [facility] [address] [place] [address] Care Team Providers Care Medical Technologist Chief Name Role Phone Name, Nitin PIKE Primary Care Provider [phone] Reason for Visit * Reason Onset Date Comments Referral 08/24/2025 Encounter Details Date Type Department Care Team ([facility] st Contact Info) Description 08/24/2025 Telephone [facility] [address] [place], [place] [phone] Name, MD Nitin [address] [place] [address] Referral Social History Tobacco Use Types Packs/Day [...] DATE: 09/21/25 TIME: 10 am Facility Name: [facility] Type of Specialist: Physical therapy Facility Phone # : [phone] Fax #: [phone] documented in this encounter Plan of Treatment Upcoming Encounters Date Type Department Care Team (Late st Contact Info) Description 09/06/2025 1:30 PM EDT Office Visit [facility] [address] [place] [address] Thea Warren FNP [address] [place] [address] 11/07/2025 10:00 AM EST Office Visit [facility] [address] [place] [phone] Name, MD Nitin [address] [place] [address] documented as of this encounter Visit Diagnoses Not on filedocumented in this encounter Additional Health Concerns Assessment Noted Time PHQ-9 Depression Total Score: 3 04/29/20 25 9:41 AM EDT documented as of this encounter Care Teams Medical Technologist Chief Relationship Specialty Start Date End Date Name, MD Nitin [address] [place] [address] PCP - General Family Medicine 08/26/17 [facility] 09/01/24 documented as of this encounter
--- OUTSIDE RECORDS SUMMARY | 2025-09-03 13:27 | XMS_ITS | Encounter Summary ---
Author Organization [employer] Address [address] [facility] [address] [place] [address] Care Team Providers Care Ice Cream Vendor Name Role Phone Name, Nitin PIKE Primary Care Provider [phone] Reason for Visit * Reason Comments Med Refill Encounter Details Date Type Department Care Team (Late st Contact Info) Description 08/16/2024 Refill [facility] [address] [place], [place] [phone] Name, MD Nitin [address] [place] [address] Heartburn Social History Tobacco Use Types Packs/Day [...] Description 09/06/2025 1:30 PM EDT Office Visit [facility] [address] [place] [address] Thea Warren FNP [address] [place] [address] 11/07/2025 10:00 AM EST Office Visit [address] [address] NameNitin MD [address] [place] [address] documented as of this encounter Visit Diagnoses Diagnosis Heartburn documented in this encounter Additional Health Concerns Assessment Noted Time PHQ-9 Depression Total Score: 6 02/13/20 24 9:14 AM EDT documented as of this encounter Care Teams Ice Cream Vendor Relationship Specialty Start Date End Date Nitin Echevarria MD [address] [place] [address] PCP - General Family Medicine 08/26/17 [facility] 09/01/24 documented as of this encounter
--- OUTSIDE RECORDS SUMMARY | 2025-09-03 13:27 | XMS_ITS | Encounter Summary ---
Author Organization [employer] Address [address] [facility] [address] [place] [address] Care Team Providers Care Bisque Cleaner Name Role Phone Name, Nitin PIKE Primary Care Provider [phone] Reason for Visit * Reason Comments Med Refill Encounter Details Date Type Department Care Team (Late st Contact Info) Description 08/17/2025 Refill [facility] MEDICINE [address] [place], [place] [phone] Miryam Riley NP [address] [place], [place] [phone] Hypertension, unspecified type Social History Tobacco Use [...] Description 09/06/2025 1:30 PM EDT Office Visit [facility] MEDICINE [address] [place] [address] Thea Warren FNP [address] [place] [address] 11/07/2025 10:00 AM EST Office Visit [address] [address] Nitin Ecehvarria MD [address] [place] [address] documented as of this encounter Visit Diagnoses Diagnosis Hypertension, unspecified type documented in this encounter Additional Health Concerns Assessment Noted Time PHQ-9 Depression Total Score: 3 04/29/20 25 9:41 AM EDT documented as of this encounter Care Teams Bisque Cleaner Relationship Specialty Start Date End Date Nitin Echevarria MD [address] [place] [address] PCP - General Family Medicine 08/26/17 [facility] 09/01/24 documented as of this encounter
--- OUTSIDE RECORDS SUMMARY | 2025-09-03 13:27 | XMS_ITS | Encounter Summary ---
Author Organization [employer] Address [address] [facility] [address] [place] [address] Care Team Providers Care Metal Trades Instructor Name Role Phone Name, Nitin PIKE Primary Care Provider [phone] Reason for Visit * Reason Comments Pre-visit Planning SDOH unable to reach Encounter Details Date Type Department Care Team ([facility] st Contact Info) Description 08/30/2025 Patient Outreach [facility] MED & PEDS [address] [place], [place] [phone] Name, MD Nitin [address] [place] [address] Pre-visit Planning (SDOH unable to reach) Social History Tobacco Use Types Packs/Day Years [...] AM EDT documented as of this encounter Progress Notes * Christy Issa - 08/30/2025 3:14 PM EDT KADE Villafana placed outbound call to patient to complete pre-visit planning. No answer at this time. Patient name and were not confirmed. CC unable to leave a message due to number not in service documented in this encounter Plan of Treatment Upcoming Encounters Date Type Department Care Team (Late st Contact Info) Description 09/06/2025 1:30 PM EDT Office Visit [facility] MEDICINE [address] [place] [address] Thea Warren FNP [address] [place] [address] 11/07/2025 10:00 AM EST Office Visit [address] [address] Name, MD Nitin [address] [place] [address] documented as of this encounter Visit Diagnoses Not on filedocumented in this encounter Additional Health Concerns Assessment Noted Time PHQ-9 Depression Total Score: 3 04/29/20 25 9:41 AM EDT documented as of this encounter Care Teams Metal Trades Instructor Relationship Specialty Start Date End Date Name, MD Nitin [address] [place] [address] PCP - General Family Medicine 08/26/17 [facility] 09/01/24 documented as of this encounter
--- OUTSIDE RECORDS SUMMARY | 2025-09-03 13:27 | XMS_ITS | Encounter Summary ---
Author Organization [employer] Address 75 [facility] [address] [place] [address] Care Team Providers Care Last Sorter Name Role Phone Name, Nitin PIKE Primary Care Provider [phone] Reason for Visit * Reason Comments Med Refill Encounter Details Date Type Department Care Team (Late st Contact Info) Description 07/25/2025 Refill [facility] MED & PEDS [address] [place], [place] [phone] Name, MD Nitin [address] [place] [address] Social History Tobacco Use Types Packs/Day Years [...] Description 09/06/2025 1:30 PM EDT Office Visit [facility] MEDICINE [address] [place] [address] Thea Warren FNP [address] [place] [address] 11/07/2025 10:00 AM EST Office Visit [facility] MEDICINE [address] [place] [address] NameNitin MD [address] [place] [address] documented as of this encounter Visit Diagnoses Not on filedocumented in this encounter Additional Health Concerns Assessment Noted Time PHQ-9 Depression Total Score: 3 04/29/20 25 9:41 AM EDT documented as of this encounter Care Teams Last Sorter Relationship Specialty Start Date End Date Nitin Echevarria MD [address] [place] [address] PCP - General Family Medicine 08/26/17 [facility] 09/01/24 documented as of this encounter
--- OUTSIDE RECORDS SUMMARY | 2025-09-03 13:27 | XMS_ITS | Encounter Summary ---
Author Organization [employer] Address 75 [facility] 7[address] [place] [address] Care Team Providers Care Bulb Filler Name Role Phone Name, Nitin PIKE Primary Care Provider [phone] Reason for Visit * Reason Onset Date Comments ER Follow-up 05/04/2024 Encounter Details Date Type Department Care Team ([facility] Contact Info) Description 05/04/2024 Telephone [facility] MEDICINE 230 [place], [place] [phone] Name, MD Nitin [address] [place] [address] ER Follow-up Social History Tobacco Use Types [...] 11:01 AM EDT T/C to pt. Through [employer] id - [id number] for below message, No answer. LVM to call back [phone] . * Telephone Encounter - Adithya Solorzano - 05/04/2024 9:35 AM EDT Noreen with [facility] calling to report ED visit on : Date: 04/28 Hospital: [facility] Seen for: UTI, Nausea, Rash. Noreen advised will be forwarding message to team nurses. Please contact pt at [phone]. documented in this encounter Plan of Treatment Upcoming Encounters Date Type Department Care Team (Late st Contact Info) Description 09/06/2025 1:30 PM EDT Office Visit [facility] MEDICINE [address] [place] [address] Thea Warren FNP [address] [place] [address] 11/07/2025 10:00 AM EST Office Visit [facility] [address] [place] [address] Name, MD Nitin [address] [place] [address] documented as of this encounter Visit Diagnoses Not on filedocumented in this encounter Additional Health Concerns Assessment Noted Time PHQ-9 Depression Total Score: 6 02/13/20 24 9:14 AM EDT documented as of this encounter Care Teams Bulb Filler Relationship Specialty Start Date End Date Name, MD Nitin [address] [place] [address] PCP - General Family Medicine 08/26/17 [facility] 09/01/24 documented as of this encounter
--- OUTSIDE RECORDS SUMMARY | 2025-09-03 13:27 | XMS_ITS | Clinical Summary ---
Author Organization [facility] Address [address] [place] [address] Phone Care Team Providers Care Track Welder Name Role Phone Physician, No Pcp Primary [...] mmol/L LAB CHEMISTRY METHOD 09/22/2024 3:15 AM [facility] Potassium 4.6 3.5 - 5.5 mmol/L LAB CHEMISTRY METHOD 09/22/2024 3:15 AM [facility] Chloride 98 96 - 110 mmol/L LAB CHEMISTRY METHOD 09/22/2024 3:15 AM [facility] CO2 28 21 - 32 mmol/L LAB CHEMISTRY METHOD 09/22/2024 3:15 AM [facility] Anion Gap 6 3 - 11 LAB CHEMISTRY METHOD 09/22/2024 3:15 AM [facility] Glucose 119(H) 70 - 100 mg/dL LAB CHEMISTRY METHOD 09/22/2024 3:15 AM [facility] BUN 25 5 - 25 mg/dL LAB CHEMISTRY METHOD 09/22/2024 3:15 AM [facility] Creatinine 1.18(H) 0.50 - 1.10 mg/dL LAB CHEMISTRY METHOD 09/22/2024 3:15 AM [facility] eGFR 47(L) >=60 mL/min/1. 73m2 LAB CHEMISTRY METHOD 09/22/2024 3:15 AM [facility] Comment:Calculation based on the Chronic Kidney Disease Epidemiology Collaboration (CKD-EPI) equation refit without adjustment for race. BUN/Creatinine Ratio 21.2 LAB CHEMISTRY METHOD 09/22/2024 3:15 AM [facility] Calcium 9.3 8.5 - 10.5 mg/dL LAB CHEMISTRY METHOD 09/22/2024 3:15 AM [facility] AST (SGOT) 37 10 - 42 unit/L LAB CHEMISTRY METHOD 09/22/2024 3:15 AM [facility] ALT (SGPT) 25 10 - 60 unit/L LAB CHEMISTRY METHOD 09/22/2024 3:15 AM [facility] Alkaline Phosphatase 77 42 - 121 unit/L LAB CHEMISTRY METHOD 09/22/2024 3:15 AM [facility] Total Protein 8.0 6.0 - 8.0 g/dL LAB CHEMISTRY METHOD 09/22/2024 3:15 AM EST [facility] Albumin 4.2 3.2 - 5.0 g/dL LAB CHEMISTRY METHOD 09/22/2024 3:15 AM EST [facility] Total Bilirubin 0.4 0.0 - 1.4 mg/dL LAB CHEMISTRY METHOD 09/22/2024 3:15 AM EST [facility] Blood Venous blood specimen / Unknown Venipuncture / Unknown 09/22/2024 2:28 AM EST 09/22/2024 2:31 AM EST Paul RUIZ LAB BLOOD ORDERABLES Final Resul t [facility] [address] [place] [address], from Last 3 Months or Most Recently Relevant to Health Maintenance Insurance [facility] MEDICARE Member Subscriber Plan / Payer (Ef fective 2021-Present) Name:Noreen Wing Relation to Subscriber:Self Name:Noreen Wing Payer ID:[id number] Group ID:[id number] Type:Not on file Address: [place] [address] [phone] Care Teams Track Welder Relationship Specialty Start Date End Date Physician, No Pcp PCP - General 09/22/24
--- OUTSIDE RECORDS SUMMARY | 2025-09-03 13:27 | XMS_ITS | Clinical Summary ---
Author Organization [facility] Address [address] [address] Care Team Providers Care Health Information Management Director Name Role Phone Name, Nitin PIKE Primary Care Provider [phone] Allergies Active Allergy Reactions Criticality Noted Date [...] patient's age to complete this topic [place] [address] MCR ([id number]) [address] [place] [phone] [facility] MCR ([id number]) Care Teams Health Information Management Director Relationship Specialty Start Date End Date Name, MD Nitin [address] [place] [address] PCP - General Internal Medicine 10/15/22
--- OUTSIDE RECORDS SUMMARY | 2025-09-03 13:27 | XMS_ITS | Encounter Summary ---
Author Organization [employer] Address 75 [facility] [address] [place] [address] Care Team Providers Care Candle Wicker Name Role Phone Name, Nitin PIKE Primary Care Provider [phone] Reason for Visit * Reason Comments Med Refill Encounter Details Date Type Department Care Team ([facility] st Contact Info) Description 06/28/2024 Refill [facility] [address] [employer] [place], [place] [phone] Mel Anguiano FNP [address] [place] [address] Social History Tobacco Use Types Packs/Day Years [...] Description 09/06/2025 1:30 PM EDT Office Visit [facility] MEDICINE [address] [place] [address] Thea Warren FNP [address] [place] [address] 11/07/2025 10:00 AM EST Office Visit [address] [address] NameNitin MD [address] [place] [address] documented as of this encounter Visit Diagnoses Not on filedocumented in this encounter Additional Health Concerns Assessment Noted Time PHQ-9 Depression Total Score: 6 02/13/20 24 9:14 AM EDT documented as of this encounter Care Teams Candle Wicker Relationship Specialty Start Date End Date Nitin Echevarria MD [address] [place] [address] PCP - General Family Medicine 08/26/17 [facility] 09/01/24 documented as of this encounter
--- OUTSIDE RECORDS SUMMARY | 2025-09-03 13:27 | XMS_ITS | Encounter Summary ---
Author Organization [employer] Address [address] [facility] [address] [place] [address] Care Team Providers Care Database Administration Associate Name Role Phone Name, Nitin PIKE Primary Care Provider [phone] Reason for Visit * Reason Onset Date Comments ER Follow-up 05/31/2024 Encounter Details Date Type Department Care Team ([facility] Contact Info) Description 05/31/2024 Telephone [facility] MEDICINE [address] [place], [place] [phone] Name, MD Nitin [address] [place] [address] ER Follow-up Social History Tobacco Use Types [...] PM EDT T/C to Pat ([facility]) [phone] for below message, no answer. LVM to call back on [phone]. * Telephone Encounter - Mealny Santos RN - 05/31/2024 1:32 PM EDT DAVID T/C to pt. Through [employer] id - [id number] for below message, pt. Had recent fall and ED visit at [facility]. RN will request GRACE piedra from [facility]. Pt. Is doing good, states I am tired andsleeping. Pt. Dose not has any question or concern right now. Pt. Already has HDF apt. Schedule on 06/10/2024. Pt. Advised to give call to [facility] if any questions or concerns. Pt. Verbally agreed and understood. Please review and advise if needed. * Telephone Encounter - Adithya Solorzano - 05/31/2024 12:50 PM EDT Patient calling to report ED visit on : Date: 05/26 Hospital: [facility] Seen for: Fall, Back Pain Pat stated pt is requesting a sooner apt with pcp due to recent ER visit. PT is also requesting order for PT services for to go along with [facility]. documented in this encounter Plan of Treatment Upcoming Encounters Date Type Department Care Team (Late st Contact Info) Description 09/06/2025 1:30 PM EDT Office Visit [facility] MEDICINE [address] [place] [address] Thea Warren FNP [address] [place] [address] [phone] 11/07/2025 10:00 AM EST Office Visit [address] [address] NameNitin MD [address] [place] [address] documented as of this encounter Visit Diagnoses Not on filedocumented in this encounter Additional Health Concerns Assessment Noted Time PHQ-9 Depression Total Score: 6 02/13/20 24 9:14 AM EDT documented as of this encounter Care Teams Database Administration Associate Relationship Specialty Start Date End Date Name, MD Nitin [address] [place] [address] PCP - General Family Medicine 08/26/17 [facility] 09/01/24 documented as of this encounter
--- OUTSIDE RECORDS SUMMARY | 2025-09-03 13:27 | XMS_ITS | Clinical Summary ---
Author Organization [employer] Address [address] [place] [address] 7[address] [place] [address] Care Team Providers Care Carbon Printer Name Role Phone Name, Nitin PIKE Primary Care Provider [phone] Allergies Active Allergy Reactions Criticality Noted Date [...] MOUTH EVERY 8 HOURS NEEDED FOR PAIN (IVORIAN LABEL) 90 tablet 025 Active omeprazole (PriLOSEC) [...] MOUTH EVERY 8 HOURS NEEDED FOR PAIN (IVORIAN LABEL) 90 tablet 2024 Discontinued(R eorder (will [...] MORNING 90 tablet 1 025 2024 Discontinued Ferrous Sulfate (iron) 325 [...] because it calms her down. I called [facility] pharmacy to attempt a [...] left I received a call from the [facility] pharmacy instructing me that [...] Encounters Date Type Department Care Team Description 08/30/2025 Patient Outreach [facility] [address] [place] [address] NameNitin MD Pre-visit Planning ([facility] unable to reach) 08/24/2025 Telephone [facility] MEDICINE [address] [place] [address] Nitin Echevarria MD Referral 08/24/2025 Telephone [facility] MEDICINE [address] [place] [address] Nitin Echevarria MD Verbal Order 08/22/2025 Orders Only [facility] External Provider, [facility] 08/18/2025 Orders Only GENERIC EXTERNAL DATA DEPARTMENT Provider, Generic External Data 08/17/2025 Refill [facility] MEDICINE [address] [place] [address] Nitin Echevarria MD 08/17/2025 Refill [facility] MEDICINE [address] [place] [address] Miryam Riley NP Hypertension, unspecified type 08/15/2025 Refill [facility] MEDICINE [address] [place] [address] Nitin Echevarria MD Heartburn 08/14/2025 Refill [facility] [address] [place] [address] iNtin Echevarria MD Heartburn; Vitamin D deficiency 08/09/2025 11:15 AM EDT Office Visit [facility] MEDICINE [address] [place] [address] Nitin Echevarria MD Generalized anxiety disorder with panic attacks (Primary Dx); Encounter for immunization; Chronic bilateral low back pain without sciatica 08/09/2025 Travel 08/01/2025 Refill [facility] MEDICINE [address] [place] [address] Nitin Echevarria MD Vitamin D deficiency 07/28/2025 Orders Only GENERIC EXTERNAL DATA DEPARTMENT Provider, Generic External Data 07/27/2025 Orders Only [facility] External Provider, [facility] 07/26/2025 Orders Only GENERIC EXTERNAL DATA DEPARTMENT Provider, Generic External Data 07/26/2025 Telephone [facility] MEDICINE [address] [place] [address] Nitin Echevarria MD ER Follow-up 07/25/2025 Refill [facility] MED & PEDS [address] [place] [address] Nitin Echevarria MD 07/25/2025 Refill [facility] MEDICINE [address] [place] [address] Nitin Echevarria MD 07/18/2025 Refill [facility]S [address] [place] [address] Miryam Riley NP 07/18/2025 Orders Only GENERIC EXTERNAL DATA DEPARTMENT Provider, Generic External Data 07/17/[address] [address] Nitin Echevarria MD Hypertension, unspecified type 07/07/2025 8:40 AM EDT [facility] [address] [address] Zach Javier MD Acute conjunctivitis of left eye, unspecified acute conjunctivitis type (Primary Dx) 07/07/2025 Travel 07/01/2025 9:20 AM EDT [facility] [address] [address] Zach Javier MD Pedal edema (Primary Dx) 07/01/2025 Travel 06/28/2025 Refill [facility] [address] [place] [address] Nitin Echevarria MD 06/27/2025 Refill [facility] [address] [place], [place] [phone] Nitin Echevarria MD Vitamin D deficiency 06/19/2025 [facility] [address] [address] Nitin Echevarria MD Prediabetes 06/17/2025 9:30 AM EDT Office Visit [facility] MEDICINE [address] [place] [phone] Thea Warren, HOSPITALIST PHYSICIAN Generalized anxiety disorder with panic attacks (Primary Dx); Essential (primary) hypertension 06/17/2025 Travel 06/17/2025 Telephone [facility] MEDICINE [address] [place], [place] [phone] Name, MD Nitin Med Refill (Pt is ) 06/08/2025 Refill [facility] [address] [place], [place] [phone] Name, MD Nitin from Last 3 Months [...] Description 09/06/2025 1:30 PM EDT Office Visit [facility] MEDICINE [address] [place] [address] [phone] Thea Warren FNP [address] [place], [place] [phone] 11/07/2025 10:00 AM EST Office Visit [address] [phone] Name, MD Nitin [address] [place] [address] [phone] Health Maintenance Due Date Last Done Comments [...] AM EDT Narrative 08/22/2025 8:17 AM EDT [address] [address] XRay Report Signed Patient: Noreen Wing MR#: [id number] : 1945 Acct:[id number] Age/Sex: 79 / F ADM Date: 08/22/25 Loc: HO.ED Attending Dr: Ordering Physician: Sarai Layton Date of Service: 08/22/25 Procedure(s): XR knee LT 4V Accession Number(s): [id number] cc: [facility]; Sarai Layton Reason for Exam: atraumatic knee [...] in OV> 08/22/25816 DD/ 5 TD/TT: 08/22/25815 Medical Insurance Coder: Procedure Note Donotuseinterpreter, Image - 08/22/[address] [address] XRay Report Signed Patient: Noreen WingMR#: [id number] : 1945cct:[id number] Age/Sex: 79 / FADM Date: 08/22/25 Loc: HO.ED Attending Dr: Ordering Physician: Sarai Layton Date of Service: 08/22/25 Procedure(s): XR knee LT 4V Accession Number(s): [id number] cc: [facility]; Sarai Layton Reason for Exam: atraumatic knee [...] in OV> 08/22/25816 DD/ 5 TD/TT: 08/22/25815 Medical Insurance Coder: [facility] External Provider IMG XR PROCEDURES Edited Result - Final * (ABNORMAL) Basic Metabolic Panel (08/18/2025 8:44 AM EDT) Only the most recent of2 resultswithin the time period is included. Sodium 137 135 - 145 mmol/L [facility] Potassium 4.6 3.3 - 5.1 mmol/L [facility] Chloride 101 96 - 108 mmol/L [facility] Carbon Dioxide 30(H) 22 - 29 mmol/L [facility] Anion Gap 11(L) 12 - 20 [facility] Urea Nitrogen (BUN) 19(H) 9 - 16 mg/dL [facility] Creatinine, Serum 0.94 0.5 - 1.4 mg/dL [facility] Estimated Glomerular Filt Rate 57 [facility] Comment:Chronic Kidney Disea se: Estimated GFR < 60 mL/min/1.85p0Ifurhw Kidney Disease: Estimated GFR < 15 mL/min/1.73m2 Glucose 94 60 - 115 mg/dL [facility] Calcium 9.3 8.4 - 10.2 mg/dL [facility] 08/18/2025 8:44 AM EDT 08/18/2025 8:44 AM EDT Generic External Data Provider LAB BLOOD ORDERAB LES Final Result Performing Organization Address [facility] Co de Phone Number [facility] [address] [place] [phone] * Culture, Urine, Routine (07/28/2025 9:44 PM EDT) Only the most recent of3 resultswithin the time period is included. Urine Urine specimen obtained by clean catch procedure / Unknown 07/28/2025 9:44 PM EDT 07/28/2025 9:44 PM EDT Comment:UACC Narrative [facility] - 07/30/2025 9:57 AM EDT Urine Culture Report Result Urine Culture 10,000 to 50,000 cfu/ml Urine Culture Mixed bacterial jann characteristic of Urine Culture urogenital contamination. Specimen Source: Urine clean catch Generic External Data Provider LAB MICROBIOLOGY - GENERAL ORDERABLES Final Result Performing Organization Address City/[facility]/ZIP Co de Phone Number [facility] [address] [place] [phone] * CTA Chest PE Protocal (07/28/2025 8:35 PM EDT) Only the most recent of2 resultswithin the time period is included. Anatomical Region Laterality Modality Body, Chest Computed Tomogra phy 07/28/2025 8:35 PM EDT Narrative 07/28/2025 8:36 PM EDT [address] [address] [address] Scan Report Signed Patient: Noreen Wing MR#: [id number] : 1945 Acct:[id number] Age/Sex: 79 / F ADM Date: 07/28/25 Loc: HO.ED Attending Dr: Ordering Physician: Cuco Amador Date of Service: 07/28/25 Procedure(s): CT angio chest PE protocol Accession Number(s): [id number] cc: Cuco Amador; Name,Nitin PIKE Report Number: [id number]: Total DLP = 311.00 mGy-cm Reason for [...] in OV> 07/28/252034 DD/ 34 TD/TT: 07/28/252034 Medical Insurance Coder: Procedure Note Donotuseinterpreter, Image - 07/28/[address] [address] [address] Scan Report Signed Patient: Noreen WingMR#: [id number] : 1945cct:[id number] Age/Sex: 79 / FADM Date: 07/28/25 Loc: HO.ED Attending Dr: Ordering Physician: Cuco Amador Date of Service: 07/28/25 Procedure(s): CT angio chest PE protocol Accession Number(s): [id number] cc: Cuco Amador; Name,Nitin PIKE Report Number: [id number]: Total DLP = 311.00 mGy-cm Reason for [...] in OV> 07/28/252034 DD/ 34 TD/TT: 07/28/252034 Medical Insurance Coder: [facility] External Provider IMG CT PROCEDURES Final Result * High Sensitivity Troponin I (07/28/2025 8:06 PM EDT) Only the most recent of4 resultswithin the time period is included. TROPONIN I HIGH SENSITIVITY <2.7 <3.5 - 17.0 ng/L [facility] Comment:The Mckeon high sens itivity Troponin-I results should beused in conjunction with other diagnostic information suchas ECG, clinical observations and information, and patientsymptoms to aid in the diagnosis of [place]. 07/28/2025 8:06 PM EDT 07/28/2025 8:12 PM EDT us Generic External Data Provider LAB BLOOD ORDERAB LES Final Result Performing Organization Address City/[facility]/ZIP Co de Phone Number [facility] [address] [place] [address] [phone] * (ABNORMAL) Urinalysis, Complete, with Reflex to Culture (07/28/2025 8:06 PM EDT) Only the most recent of3 resultswithin the time period is included. Color Urine Yellow [facility] Appearance Urine Clear [facility] PH 6.0 5.0 - 9.0 [facility] Glucose Urine UA Negative Negative mg/dL [facility] Urine Blood Negative Negative [facility] Specific [place] - Urine >=1.030(H) 1.005 - 1.025 [facility] Urine Protein Negative Neg-Trace mg/dL [facility] Urine Ketones Negative Negative mg/dL [facility] Nitrite Urine Negative Negative [facility] Leukocyte Esterase Urine Small (1+)(A) Negative [facility] RBC Urine 0-2 0 - 2 /HPF [facility] Urine WBC 6-10(A) 0 - 5 /HPF [facility] Urine Squamous Epithelial Cell 0-2 0 - 2 /HPF [facility] Urine Bacteria None Seen None Seen [facility] Hyaline Casts, Urine 0-2 0 - 2 /LPF [facility] 07/28/2025 8:06 PM EDT 07/28/2025 8:12 PM EDT Narrative [facility] - 07/28/2025 9:26 PM EDT [id number], Clean Catch Generic External Data Provider LAB URINE ORDERAB LES Final Result Performing Organization Address City/[facility]/ZIP Co de Phone Number [facility] [address] [place] [address] [phone] * CT Abdomen Pelvis w/ Contrast (07/28/2025 8:01 PM EDT) Anatomical Region Laterality Modality Body, Pelvis, Abdomen Computed T omography 07/28/2025 8:01 PM EDT Narrative 07/28/2025 8:03 PM EDT [address] [address] [address] Scan Report Signed Patient: Noreen Wing MR#: [id number] : 1945 Acct:[id number] Age/Sex: 79 / F ADM Date: 07/28/25 Loc: HO.ED Attending Dr: Ordering Physician: Cuco Amador Date of Service: 07/28/25 Procedure(s): CT abdomen pelvis w IV con Accession Number(s): [id number] cc: Cuco Amador; Name,Nitin PIKE Report Number: [id number]: Total DLP = 539.64 mGy-cm Reason for [...] in OV> 07/28/252001 DD/ 00 TD/TT: 07/28/252000 Medical Insurance Coder: Procedure Note Donrogersinterpreter, Image - 07/28/[address] [address] [address] Scan Report Signed Patient: Noreen WingMR#: [id number] : 3Acct:[id number] Age/Sex: 79 / FADM Date: 07/28/25 Loc: HO.ED Attending Dr: Ordering Physician: Cuco Amador Date of Service: 07/28/25 Procedure(s): CT abdomen pelvis w IV con Accession Number(s): [id number] cc: Cuco mAador; Name,Nitin PIKE Report Number: [id number]: Total DLP = 539.64 mGy-cm Reason for [...] in OV> 07/28/252001 DD/ 00 TD/TT: 07/28/252000 Medical Insurance Coder: [facility] External Provider IMG CT PROCEDURES Final Result * (ABNORMAL) CBC auto differential (07/28/2025 5:01 PM EDT) Only the most recent of3 resultswithin the time period is included. White Blood Count 7.2 4.8 - 10.8 X10*3/uL [facility] Red Blood Count 3.71(L) 4.20 - 5.50 X10*6/uL [facility] Hemoglobin 10.6(L) 12.0 - 16.0 g/dl [facility] Hematocrit 31.4(L) 37.0 - 47.0 % [facility] Mean Corpuscular Volume 84.6 80.0 - 98.0 fL [facility] Mean Corpuscular Hemoglobin 28.6 27.0 - 33.0 pg [facility] Mean Corpuscular HGB Conc 33.8 31.0 - 35.0 g/dl [facility] Red Cell Distribution Width 14.0 11.0 - 16.0 % [facility] Platelet Count 245 160 - 400 X10*3/uL [facility] Mean Platelet Volume 8.8(L) 9.4 - 12.3 fL [facility] Neutrophils Percent Auto 57.8 45 - 73 % [facility] Imm Gran Pct Auto 0.3 0.0 - 0.4 % [facility] Lymphocytes Percent Auto 27.2 20 - 40 % [facility] Monocytes Percent Auto 12.5(H) 2 - 11 % [facility] Eosinophils Percent Auto 1.8 0 - 4 % [facility] Basophils Percent Auto 0.4 0 - 2 % [facility] NRBC Pct Auto 0.0 0.0 - 0.2 /100WBC [facility] Neutrophils Absolute Auto 4.2 2.0 - 8.3 x10*3/uL [facility] Imm Gran Abs Auto 0.02 0.00 - 0.03 X10*3/uL [facility] Lymphocytes Absolute Auto 2.0 1.2 - 4.9 X10*3/uL [facility] Monocytes Absolute Auto 0.9 0.1 - 1.2 X10*3/uL [facility] Eosinophils Absolute Auto 0.1 0.0 - 0.4 X10*3/uL [facility] Basophils Absolute Auto 0.0 0.0 - 0.2 X10*3/uL [facility] NRBC Abs Auto 0.000 0.0 - 0.012 X10*3/uL [facility] 07/28/2025 5:01 PM EDT 07/28/2025 5:05 PM EDT Generic External Data Provider LAB BLOOD ORDERAB LES Final Result Performing Organization Address [facility] Co de Phone Number [facility] [address] [place] [phone] * Partial Thromboplastin Time, Activated (APTT) (07/28/2025 5:01 PM EDT) Partial Thromboplastin Time 31.4 26.7 - 34.1 SEC [facility] 07/28/2025 5:01 PM EDT 07/28/2025 5:05 PM EDT Generic External Data Provider LAB BLOOD ORDERAB LES Final Result Performing Organization Address [facility] de Phone Number [facility] [address] [place] [phone] * (ABNORMAL) Prothrombin Time-INR (07/28/2025 5:01 PM EDT) Prothrombin Time 14.3(H) 10.9 - 12.4 SEC [facility] INTERNATIONAL NORM RATIO 1.2(H) 0.9 - 1.1 [facility] Comment:INTERNATIONAL NORMAL IZED RATIO (INR) [...] ORDERAB LES Final Result Performing Organization Address City/[facility]/ZIP Co de Phone Number [facility] [address] [place] [phone] * Lipase (07/28/2025 5:01 PM EDT) Lipase 31 8 - 78 U/L [facility] 07/28/2025 5:01 PM EDT 07/28/2025 5:05 PM EDT Generic External Data Provider LAB BLOOD ORDERAB LES Final Result Performing Organization Address [facility] de Phone Number [facility] [address] [place] [address] [phone] * (ABNORMAL) Comprehensive Metabolic Panel (07/28/2025 5:01 PM EDT) Only the most recent of2 resultswithin the time period is included. Sodium 140 135 - 145 mmol/L [facility] Potassium 4.1 3.3 - 5.1 mmol/L [facility] Chloride 104 96 - 108 mmol/L [facility] Carbon Dioxide 30(H) 22 - 29 mmol/L [facility] Anion Gap 10(L) 12 - 20 [facility] Urea Nitrogen (BUN) 24(H) 9 - 16 mg/dL [facility] Creatinine, Serum 1.03 0.5 - 1.4 mg/dL [facility] Creatinine Clr Calc Pharmacy 50.1 [facility] Comment:Provided height and weight: 172.72 cm,89.5 kg.eGFR (calculated from the MDRD study equation) and eCrCl(calculated from the Cockcroft-Gault equation) are based ondifferent parameters and may not yield comparable results.If eCrCl result is absurd, please check patient'sheight/weight. Estimated Glomerular Filt Rate 51 [facility] Comment:Chronic Kidney Disea se: Estimated GFR < 60 mL/min/1.00n9Dmwffx Kidney Disease: Estimated GFR < 15 mL/min/1.73m2 Glucose 146(H) 60 - 115 mg/dL [facility] Calcium 8.4 8.4 - 10.2 mg/dL [facility] Bilirubin, Total 0.2 0.0 - 1.0 mg/dL [facility] Aspartate Amino Transferase 34(H) 5 - 31 U/L [facility] Alanine Aminotransferase 23 0 - 31 U/L [facility] Total Protein 7.3 6.5 - 8.0 g/dL [facility] Albumin Level 4.0 3.5 - 5.0 g/dL [facility] Alkaline Phosphatase 72 39 - 117 U/L [facility] 07/28/2025 5:01 PM EDT 07/28/2025 5:05 PM EDT us Generic External Data Provider LAB BLOOD ORDERAB LES Final Result [facility] [address] [place] [phone] * POCT HGB A1C (01/10/2025 11:02 AM EST) Pathologist [facility] Hemoglobin A1C 5.1 4.0 - 6.0 % [...] LDL-C. Jack RAYO et al. JITENDRA. 2013;310(19): 6133-3457 (http://education.Sandag.Bosse Tools/faq/EJK551) Non-HDL Cholesterol 88 <130 mg/dL (calc) CONVERTED [...] Most Recently Relevant to Health Maintenance Insurance [facility] [employer] (O D-SNP) [place] [id number] Care Teams Carbon Printer Relationship Specialty Start Date End Date Name, MD Nitin [address] [place] [phone] PCP - General Family Medicine 08/26/17 [facility] 09/01/24
--- OUTSIDE RECORDS SUMMARY | 2025-09-03 13:27 | XMS_ITS | Encounter Summary ---
Author Organization [employer] Address [address] [facility] [address] [place] [address] Care Team Providers Care Counselor Dormitory Name Role Phone Name, Nitin PIKE Primary Care Provider [phone] Reason for Visit * Reason Onset Date Comments Results 08/29/2023 Encounter Details Date Type Department Care Team ([facility] st Contact Info) Description 08/29/2023 Telephone [facility] [address] [place], [place] [phone] Name, MD Nitin [address] [place] [address] Results Social History Tobacco Use Types Packs/Day [...] 09/01/2023 11:51 AM EDT Pt evaluated in [facility] today and is scheduled with pcp 09/03/23. * Telephone Encounter - Janette Huitron - 08/29/2023 4:06 PM EDT Tc from pt requesting a call in regards to urine results. Please contact pt at [phone] (Chadian) documented in this encounter Plan of Treatment Upcoming Encounters Date Type Department Care Team (Late st Contact Info) Description 09/06/2025 1:30 PM EDT Office Visit [facility] [address] [place] [phone] Thea Warren FNP [address] [place] [address] 11/07/2025 10:00 AM EST Office Visit [address] [address] Name, MD Nitin [address] [place] [phone] documented as of this encounter Visit Diagnoses Not on filedocumented in this encounter Additional Health Concerns Assessment Noted Time PHQ-9 Depression Total Score: 12 023 9:37 AM EDT documented as of this encounter Care Teams Counselor Dormitory Relationship Specialty Start Date End Date Name, MD Nitin [address] [place] [address] PCP - General Family Medicine 08/26/17 [facility] 09/01/24 documented as of this encounter
--- OUTSIDE RECORDS SUMMARY | 2025-09-03 13:27 | XMS_ITS | Encounter Summary ---
Author Organization [employer] Address [address] [facility] [address] [place] [address] Care Team Providers Care Carver And Checkerer Specials Name Role Phone Name, Nitin PIKE Primary Care Provider [phone] Encounter Details Date Type Department Care Team (Late Contact Info) Description 08/08/2023 Telephone [facility] MED[facility]INE [address] [place] [address] [phone] Name, MD Nitin [address] [place] [address] [phone] Social History Tobacco Use Types Packs/Day Years [...] [facility] [address] [place] [address] [phone] Thea Warren FNP [address] [place] [phone] 11/07/2025 10:00 AM EST Office Visit [facility] [address] [place] [address] Name, MD Nitin [address] [place] [address] documented as of this encounter Visit Diagnoses Not on filedocumented in this encounter Additional Health Concerns Assessment Noted Time PHQ-9 Depression Total Score: 12 023 9:37 AM EDT documented as of this encounter Care Teams Carver And Checkerer Specials Relationship Specialty Start Date End Date Name, MD Nitin [address] [place] [address] PCP - General Family Medicine 08/26/17 [facility] 09/01/24 documented as of this encounter
--- OUTSIDE RECORDS SUMMARY | 2025-09-03 13:27 | XMS_ITS | Encounter Summary ---
Author Organization [employer] Address [address] [place] [address] Care Team Providers Care Informaticist Name Role Phone Name, Nitin PIKE Primary Care Provider [phone] Encounter Details Date Type Department Care Team ([facility] st Contact Info) Description 05/26/2023 Orders Only [facility] MED[facility]INE [address] [place] [address] Noreen Fox MD [address] [place] [address] Social History Tobacco Use Types Packs/Day Years [...] [facility] Info) Description 09/06/2025 1:30 PM EDT Office Visit [facility] [address] [place] [address] Thea Warren FNP [address] [place] [address] 11/07/2025 10:00 AM EST Office Visit [facility] [address] [place] [address] [place] [address] documented as of this encounter Visit Diagnoses Not on filedocumented in this encounter Care Teams Informaticist Relationship Specialty Start Date End Date Name, [place] [address] PCP - General Family Medicine 08/26/17 [facility] 09/01/24 documented as of this encounter
--- OUTSIDE RECORDS SUMMARY | 2025-09-03 13:27 | XMS_ITS | Encounter Summary ---
Author Organization [employer] Address [address] [facility] [address] [place] [address] Care Team Providers Care Battery Tester Name Role Phone Name, Nitin PIKE Primary Care Provider [phone] Reason for Visit * Reason Comments Med Refill Encounter Details Date Type Department Care Team (Late st Contact Info) Description 01/09/2025 Refill [facility] [address] [place], [place] [phone] Name, MD Nitin [address] [place] [address] Hypertension, unspecified type Social History Tobacco Use [...] 09/06/2025 1:30 PM EDT Office Visit [facility] [address] [place] [phone] Thea Warren FNP [address] [place] [address] 11/07/2025 10:00 AM EST Office Visit [facility] [address] [place] [phone] NameNitin MD [address] [place] [phone] documented as of this encounter Visit Diagnoses Diagnosis Hypertension, unspecified type documented in this encounter Additional Health Concerns Assessment Noted Time PHQ-9 Depression Total Score: 6 02/13/20 24 9:14 AM EDT documented as of this encounter Care Teams Battery Tester Relationship Specialty Start Date End Date Nitin Echevarria MD [address] [place] [phone] PCP - General Family Medicine 08/26/17 [facility] 09/01/24 documented as of this encounter
--- OUTSIDE RECORDS SUMMARY | 2025-09-03 13:28 | XMS_ITS | Encounter Summary ---
Author Organization [facility] Address 75 [facility] 7t [place] [address] Care Team Providers Care Digital Producer Name Role Phone Name, Nitin PIKE Primary Care Provider [phone] Reason for Visit * Reason Onset Date Comments Verbal Orders 01/02/2024 Encounter Details Date Type Department Care Team ([facility] st Contact Info) Description 01/02/2024 Telephone [facility] MEDICINE [address] [place], [place] [phone] Name, MD Nitin 230 [place] [address] Verbal Orders Social History Tobacco Use Types [...] No answer. LVM to call back on [phone]. * Telephone Encounter - Melany Santos RN - 01/06/2024 10:25 AM EST Please review and advise for below request. * Telephone Encounter - Deana Bazzi - 01/02/2024 3:44 PM EST Tc from [facility] with S requesting verbal orders for discharge pt from Occupational Therapy, due to pt refuses services, please contact [facility] at [phone]. documented in this encounter Plan of Treatment Upcoming Encounters Date Type Department Care Team (Late st Contact Info) Description 09/06/2025 1:30 PM EDT Office Visit [facility] MEDICINE [address] [place] [address] Thea Warren FNP [address] [place] [address] 11/07/2025 10:00 AM EST Office Visit [address] [address] Name, MD Nitin [address] [place] [address] documented as of this encounter Visit Diagnoses Not on filedocumented in this encounter Additional Health Concerns Assessment Noted Time PHQ-9 Depression Total Score: 12 023 9:37 AM EDT documented as of this encounter Care Teams Digital Producer Relationship Specialty Start Date End Date NameNitin MD [address] [place] [phone] PCP - General Family Medicine 08/26/17 [facility] 09/01/24 documented as of this encounter
--- OUTSIDE RECORDS SUMMARY | 2025-09-03 13:28 | XMS_ITS | Encounter Summary ---
Author Organization [employer] Address 75 [facility] 7t [place] [address] Care Team Providers Care Finishing And Shipping Supervisor Name Role Phone NameNitin MD Primary Care Provider [phone] Encounter Details Date Type Department Care Team ([facility] Contact Info) Description 01/06/2023 Orders Only [facility] CHC MED & PEDS [address] [place], [place] [phone] Lisha Kelly LPN Social History Tobacco Use [...] 1:30 PM EDT Office Visit [facility] MEDICINE [address] [place] [address] [phone] Thea Warren FNP 230 [place], [place] [phone] 11/07/2025 10:00 AM EST Office Visit [address] [phone] Name, MD Nitin 230 [place] [address] documented as of this encounter Visit Diagnoses Not on filedocumented in this encounter Care Teams Finishing And Shipping Supervisor Relationship Specialty Start Date End Date Name, MD Nitin 230 [place] [address] PCP - General Family Medicine 08/26/17 [facility] 09/01/24 documented as of this encounter
--- OUTSIDE RECORDS SUMMARY | 2025-09-03 13:28 | XMS_ITS | Encounter Summary ---
Author Organization [employer] Address 75 [facility] 7t [place] [address] Care Team Providers Care Coin Machine Supervisor Name Role Phone Name, Nitin PIKE Primary Care Provider [phone] Reason for Visit * Reason Onset Date Comments FYI 01/21/2024 ER Follow-up 01/21/2024 Encounter Details Date Type Department Care Team ([facility] st Contact Info) Description 01/21/2024 Telephone [facility] MEDICINE 230 [place], [place] [phone] Name, MD Nitin 230 [place] [address] FYI; ER Follow-up Social History Tobacco Use [...] - 01/21/2024 1:54 PM EDT Message from [facility] ED noted. [facility] note sent to medical records. PCP does not rx Trazodone. Pt to f/u with psych prescriber. Pt is scheduled for f/u with pcp 02/13/24. * Telephone Encounter - Janette Huitron - 01/21/2024 9:45 AM EDT Tc from nata with [facility] ED calling in regards to pt. States pt was seen today for anxiety and is requesting trazodone. Will discharge pt with no medication change. Would also like to advise provider, pt [place] [facility] [place] for anxiety/insomnia as well documented in this encounter Plan of Treatment Upcoming Encounters Date Type Department Care Team (Late st Contact Info) Description 09/06/2025 1:30 PM EDT Office Visit [facility] MEDICINE [address] [place] [address] Thea Warren FNP 230 [place] [address] 11/07/2025 10:00 AM EST Office Visit [facility] MEDICINE [address] [place] [address] Name, MD Nitin [address] [place] [address] documented as of this encounter Visit Diagnoses Not on filedocumented in this encounter Additional Health Concerns Assessment Noted Time PHQ-9 Depression Total Score: 12 023 9:37 AM EDT documented as of this encounter Care Teams Coin Machine Supervisor Relationship Specialty Start Date End Date Name, MD Nitin [address] [place] [address] PCP - General Family Medicine 08/26/17 [facility] 09/01/24 documented as of this encounter
--- OUTSIDE RECORDS SUMMARY | 2025-09-03 13:28 | XMS_ITS | Encounter Summary ---
Author Organization [employer] Address 75 [facility] 7[address] [place] [address] Care Team Providers Care Help Desk Specialist Name Role Phone Name, Nitin PIKE Primary Care Provider [phone] Encounter Details Date Type Department Care Team ([facility] Contact Info) Description 12/17/2022 Orders Only [facility] CHC MED & PEDS [address] [place], [place] [phone] Lisha Kelly LPN Social History Tobacco Use [...] Description 09/06/2025 1:30 PM EDT Office Visit [facility] MEDICINE [address] [place] [address] Thea Warren FNP 230 [place] [address] 11/07/2025 10:00 AM EST Office Visit [facility] MEDICINE [address] [place] [address] NameNitin MD 230 [place] [address] documented as of this encounter Visit Diagnoses Not on filedocumented in this encounter Care Teams Help Desk Specialist Relationship Specialty Start Date End Date Name, MD Nitin [address] [place] [address] PCP - General Family Medicine 08/26/17 [facility] 09/01/24 documented as of this encounter
--- OUTSIDE RECORDS SUMMARY | 2025-09-03 13:28 | XMS_ITS | Data Portability ---
Author Organization [employer] [facility] Address [address] [place] [address] Care Team Providers Care Roving Tester Laboratory Name Role Phone HIM CCA Primary Care [...] Last Updated DateTime 18 /min 74 /min 84257.9 28 g 98 % 98 % 100 [degF] 130/66 mm[Hg] Not Available [employer] [facility] 15:33:18 Social History None recorded. Functional Status None recorded. Mental Status None recorded. Family History Nothing Reported. Medical History No medical history recorded. Gynecological HistoryNo gynecological history recorded. 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 She called today because she insists on having the catheter removed. It was removed by the supervisor television chassis repair with the understand ing that if she can't void, she will need to go the the ER. The patient agreed with this plan. [id number] Rohit Benton MD Main - [address] [address] 02/06/2024 15:33:16 02/09/2024 18:20:42 Chronic retention of urine 832566614 R33.8 Has bunn catheter which was recently [...] Pinzon Member ID Guarantor Name 02/09/2024 1 [facility] - DOS ON OR AFTER 2023 - DUAL ELIGIBLE - [facility] OPTIONS AND ONE CARE (MEDICARE REPLACEMENT/ADV ANTAGE - HMO) Noreen Wing [id number] Noreen Wing Notes Date Note Type Note Provider Name and Address Organization Details Recorded Time 01/31/2024 text/html ROS as noted in the HPI CRC Nurse Triage Notes (Joana Dominique): Reason For Request: Bunn catheter malfunction/painful Chief Complaints: UTI/Pyelonephritis, Equipment-Related Allergies: No Known Comments: Macedonian speaking member who denies any PMH, denies [...] KAYE Verified name//address Epifanio Mcintyre MD [address] [facility], [place], [address], [employer] 01/31/2024 19:05:57 02/06/2024 text/html ROS as noted in the HPI HPI: Member asked for HV tomorrow after 10 AM if possible. Tre[place] [facility] [place], for F/u leaking, stated is [...] son Jame Wing. Member is 78 y/o Macedonian speaking female who [place] [facility] with her son. Member [...] sees her BH counselor weekly and Prescriber RN [facility] [place] monthly if needed or every 2-3 months, .................... .................... .................... .................... .................... .................... .................... . CRC Nurse Triage Notes (Zafar Irving): Comments: Reviewed HPI .................... .................... .................... .................... .................... .................... .................... . Predatory Game Hunter Note From [facility] [place]: Pt sts doesn [...] Vitals stable. Urine clear and light yellow. [facility] [place] and advised pt to rest and advised to make sure she goes to appt Friday. Pt son was used as journey lineman. Pt education on signs indicating the ER. [employer] Allergies: Clindamycin .................... .................... .................... .................... .................... .................... .................... . Disposition: Fulfilled Rohit Benton MD [address] [facility], [place], [address], [employer] 02/06/2024 17:58:19 OBGyn Episode No OBEpisode recorded.
--- OUTSIDE RECORDS SUMMARY | 2025-09-03 13:28 | XMS_ITS | Encounter Summary ---
Author Organization [employer] Address 75 [facility] 7t [place] [address] Care Team Providers Care Dust Collector Attendant Name Role Phone Name, Nitin PIKE Primary Care Provider [phone] Reason for Visit * Reason Onset Date Comments triage 12/18/2022 Encounter Details Date Type Department Care Team ([facility] st Contact Info) Description 12/18/2022 Telephone [facility] MEDICINE 230 [place], [place] [phone] Name, MD Nitin 230 [place] [address] triage Social History Tobacco Use Types Packs/Day [...] 12/18/2022 2:35 PM EST Called pt. Via [employer] aerial photograph interpreter [id number] Eduardo. Pt. States that she has a [...] phone. Please reach out to pt. With Romanian speaking another time to see what her [...] Description 09/06/2025 1:30 PM EDT Office Visit [address] [address] Thea Warren FNP [address] [place] [address] 11/07/2025 10:00 AM EST Office Visit [address] [address] Name, MD Nitin [address] [place] [address] documented as of this encounter Visit Diagnoses Not on filedocumented in this encounter Care Teams Dust Collector Attendant Relationship Specialty Start Date End Date Name, MD Nitin [address] [place] [address] PCP - General Family Medicine 08/26/17 [facility] 09/01/24 documented as of this encounter
--- OUTSIDE RECORDS SUMMARY | 2025-09-03 13:28 | XMS_ITS | Encounter Summary ---
Author Organization [employer] Address 75 [facility] 7t [place] [address] Care Team Providers Care Clean Up Person Name Role Phone Name, Nitin PIKE Primary Care Provider [phone] Reason for Visit * Reason Comments Med Refill Encounter Details Date Type Department Care Team (Late Contact Info) Description 03/02/2023 Refill [facility] MEDICINE 230 [place] [address] Karely Patiño MD 505 [place], [place] [phone] Social History Tobacco Use Types Packs/Day Years [...] 1:30 PM EDT Office Visit [facility] MEDICINE [address] [place] [address] Thea Warren FNP 230 [place], [place] [phone] 11/07/2025 10:00 AM EST Office Visit [facility] MEDICINE 230 [place] [address] Name, [place] [address] documented as of this encounter Visit Diagnoses Not on filedocumented in this encounter Care Teams Clean Up Person Relationship Specialty Start Date End Date Name, [place] [address] PCP - General Family Medicine 08/26/17 [facility] 09/01/24 documented as of this encounter
--- OUTSIDE RECORDS SUMMARY | 2025-09-03 13:28 | XMS_ITS | Encounter Summary ---
Author Organization [employer] Address 75 [facility] 7[address] [place] [address] Care Team Providers Care Hydraulic Repairer Name Role Phone Name, Nitin PIKE Primary Care Provider [phone] Reason for Visit * Reason Onset Date Comments Verbal Orders 12/15/2023 Encounter Details Date Type Department Care Team ([facility] st Contact Info) Description 12/15/2023 Telephone [facility] MEDICINE 230 [place], [place] [phone] Name, MD Nitin 230 [place] [address] Verbal Orders Social History Tobacco Use Types [...] 12:03 PM EST Tc from [facility] with [employer] requesting verbal order to see pt 2 times a week for 4 weeks for Occupational Therapy, please contact J[facility] at [phone] documented in this encounter Plan of Treatment Upcoming Encounters Date Type Department Care Team (Late st Contact Info) Description 09/06/2025 1:30 PM EDT Office Visit [address] [address] Thea Warren FNP [address] [place] [address] 11/07/2025 10:00 AM EST Office Visit [address] [address] Name, MD Nitin [address] [place] [address] documented as of this encounter Visit Diagnoses Not on filedocumented in this encounter Additional Health Concerns Assessment Noted Time PHQ-9 Depression Total Score: 12 023 9:37 AM EDT documented as of this encounter Care Teams Hydraulic Repairer Relationship Specialty Start Date End Date Nitin Echevarria MD [address] [place] [address] PCP - General Family Medicine 08/26/17 [facility] 09/01/24 documented as of this encounter
--- OUTSIDE RECORDS SUMMARY | 2025-09-03 13:28 | XMS_ITS | Encounter Summary ---
Author Organization [employer] Address 75 [facility] 7[address] [place] [address] Care Team Providers Care Continuous Dryout Operator Helper Name Role Phone Name, Nitin PIKE Primary Care Provider [phone] Reason for Visit * Reason Onset Date Comments Call Back Request 03/14/2025 Encounter Details Date Type Department Care Team ([facility] st Contact Info) Description 03/14/2025 Telephone [facility] MEDICINE 230 [place], [place] [phone] Name, MD Nitin 230 [place] [address] Call Back Request Social History Tobacco Use [...] Description 09/06/2025 1:30 PM EDT Office Visit [facility] MEDICINE [address] [place] [address] Thea Warren FNP 230 [place] [address] 11/07/2025 10:00 AM EST Office Visit [facility] MEDICINE [address] [place] [address] Name, MD Nitin 230 [place] [address] documented as of this encounter Visit Diagnoses Not on filedocumented in this encounter Additional Health Concerns Assessment Noted Time PHQ-9 Depression Total Score: 6 02/13/20 24 9:14 AM EDT documented as of this encounter Care Teams Continuous Dryout Operator Helper Relationship Specialty Start Date End Date Name, MD Nitin 230 [place] [address] PCP - General Family Medicine 08/26/17 [facility] 09/01/24 documented as of this encounter
--- OUTSIDE RECORDS SUMMARY | 2025-09-03 13:28 | XMS_ITS | Encounter Summary ---
Author Organization [employer] Address 75 [facility] 7t [place] [address] Care Team Providers Care Catering Director Name Role Phone Name, Nitin PIKE Primary Care Provider [phone] Reason for Visit * Reason Onset Date Comments Durable Medical Equipment 12/09/2023 Encounter Details Date Type Department Care Team ([facility] st Contact Info) Description 12/09/2023 Telephone [facility] MEDICINE 230 [place], [place] [phone] Name, MD Nitin 230 [place], [place] [phone] Durable Medical Equipment Social History Tobacco Use [...] AM EST DME rx faxed to [facility] as requested. RN will consult with S nurse and provide referral. * Telephone Encounter - Fozia Jacob RN - 12/09/2023 4:58 PM EST Call returned to [facility] at [facility] [phone] ext. [phone]. [facility] states that [facility] attempted to provide PT at home but pt refused. [facility] pt is requesting outpatient PT. [facility] pt is seeing a counselor more regularly and has agreed to VNA referral. Reports pt has had 3 falls in the past 2 months. [facility] states [facility] no longer has visiting nurses. [facility] recommends [employer] or [facility] for VNA referral. [facility] also requesting DME rx for rollator walker and a straight cane. Requests that DME rx be faxed to [phone]. Advised requests will be sent to pcp. * Telephone Encounter - Adithya Solorzano - 12/09/2023 4:25 PM EST Tc from [facility] requesting DME: Rollator walker . documented in this encounter Plan of Treatment Upcoming Encounters Date Type Department Care Team (Late st Contact Info) Description 09/06/2025 1:30 PM EDT Office Visit [facility] MEDICINE 230 [place] [address] Thea Warren FNP 230 [place] [address] 11/07/2025 10:00 AM EST Office Visit [facility] [address] [place] [address] Name, MD Nitin [address] [place] [address] documented as of this encounter Visit Diagnoses Not on filedocumented in this encounter Additional Health Concerns Assessment Noted Time PHQ-9 Depression Total Score: 12 05/29/ 023 9:37 AM EDT documented as of this encounter Care Teams Catering Director Relationship Specialty Start Date End Date Name, MD Nitin [address] [place] [address] PCP - General Family Medicine 08/26/17 [facility] 09/01/24 documented as of this encounter
--- OUTSIDE RECORDS SUMMARY | 2025-09-03 13:28 | XMS_ITS | Encounter Summary ---
Author Organization [employer] Address 75 [facility] 7t [place] [address] Care Team Providers Care Life Scientist Name Role Phone Name, Nitin PIKE Primary Care Provider [phone] Encounter Details Date Type Department Care Team (Late st Contact Info) Description 11/06/2022 Orders Only [facility] CHC MED & PEDS [address] [place], [place] [phone] Lisha Kelly LPN Social History Tobacco Use [...] Description 09/06/2025 1:30 PM EDT Office Visit [facility] MEDICINE [address] [place] [address] Thea Warren FNP [address] [place] [address] 11/07/2025 10:00 AM EST Office Visit [address] [address] Nitin Echevarria MD [address] [place] [address] documented as of this encounter Visit Diagnoses Not on filedocumented in this encounter Care Teams Life Scientist Relationship Specialty Start Date End Date Name, MD Nitin 230 [place] [address] PCP - General Family Medicine 08/26/17 [facility] 09/01/24 documented as of this encounter
--- OUTSIDE RECORDS SUMMARY | 2025-09-03 13:28 | XMS_ITS | Encounter Summary ---
Author Organization [employer] Address 75 [facility] 7[address] [place] [address] Care Team Providers Care Brand Marketing Intern Name Role Phone Name, Nitin PIKE Primary Care Provider [phone] Reason for Visit * Reason Onset Date Comments Order(s) 12/09/2023 Encounter Details Date Type Department Care Team ([facility] Contact Info) Description 12/09/2023 Telephone [facility] MEDICINE 230 [place], [place] [phone] Name, MD Nitin 230 [place], [place] [phone] Order(s) Social History Tobacco Use Types Packs/Day [...] orders. If any questions please contact Noreen [phone]. documented in this encounter Plan of Treatment Upcoming Encounters Date Type Department Care Team (Late st Contact Info) Description 09/06/2025 1:30 PM EDT Office Visit [address] [address] Thea Warren FNP [address] [place] [address] 11/07/2025 10:00 AM EST Office Visit [address] [address] NameNitin MD [address] [place] [address] documented as of this encounter Visit Diagnoses Not on filedocumented in this encounter Additional Health Concerns Assessment Noted Time PHQ-9 Depression Total Score: 12 023 9:37 AM EDT documented as of this encounter Care Teams Brand Marketing Intern Relationship Specialty Start Date End Date Nitin Echevarria MD [address] [place] [address] PCP - General Family Medicine 08/26/17 [facility] 09/01/24 documented as of this encounter
--- NOTE | 2025-09-03 13:48 | ECG_ITS ---
Test Reason : fall Blood Pressure : */* mmHG Vent. Rate : 75 BPM Atrial Rate : 75 BPM P-R Int : 198 ms QRS Dur : 94 ms QT Int : 398 ms P-R-T Axes : 54 -26 7 degrees QTcB Int : 444 ms Sinus rhythm with marked sinus arrhythmia Otherwise normal ECG When compared with ECG of 28-Jul-2025 17:45, No significant change was found Referred By: Sarai Layton Electronically Signed By: KATRINA PARSONS MD
[2025-09-03 14:13] LABS: MANUAL DIFF FLAG NO
[2025-09-03 14:17] LABS: Hematocrit 32.7 % (37.0-47.0); Hemoglobin 10.9 g/dl (12.0-16.0); Imm Gran Abs Auto 0.03 X10*3/uL (0.00-0.03); Imm Gran Pct Auto 0.4 % (0.0-0.4); Lymphocytes Absolute Auto 1.6 X10*3/uL (1.2-4.9); Mean Corpuscular HGB Conc 33.3 g/dl (31.0-35.0); Mean Corpuscular Hemoglobin 28.0 pg (27.0-33.0); Mean Corpuscular Volume 84.1 fL (80.0-98.0); NRBC Abs Auto 0.000 X10*3/uL (0.0-0.012); NRBC Pct Auto 0.0 /100WBC (0.0-0.2); Platelet Count 278 X10*3/uL (160-400); Red Blood Count 3.89 X10*6/uL (4.20-5.50); White Blood Count 7.5 X10*3/uL (4.8-10.8)
--- NOTE | 2025-09-03 14:28 | PC.NURSE ---
20 G IV access obtained in right AC, PT medicated per JAN call ann within reach.
[2025-09-03 14:38] LABS: Alanine Aminotransferase 18 U/L (0-31); Albumin Level 4.0 g/dL (3.5-5.0); Alkaline Phosphatase 81 U/L (39-117); Anion Gap 10 (12-20); Aspartate Amino Transferase 27 U/L (5-31); Blood Urea Nitrogen 24 mg/dL (9-16); Calcium 8.9 mg/dL (8.4-10.2); Carbon Dioxide 28 mmol/L (22-29); Chloride 105 mmol/L (96-108); Creatinine Clr Calc Pharmacy 45.7; Estimated Glomerular Filt Rate 51; Magnesium 2.0 mg/dL (1.6-2.6); Potassium 4.1 mmol/L (3.3-5.1); Sodium 139 mmol/L (135-145); Total Protein 7.7 g/dL (6.5-8.0)
[2025-09-03 14:50] LABS: Troponin-I High Sensitivity < 2.7 ng/L (<3.5-17.0)
== END 2025-09-03 17:25 | disposition home or self-care (01) ==
PROVIDERS: Physician Assistant Medical; Emergency Provider Emergency Medicine Emergency Medical Services; PCP Internal Medicine Geriatric Medicine
DX: R42 Dizziness and giddiness (principal); S09.90XA Unspecified injury of head, initial encounter; W18.30XA Fall on same level, unspecified, initial encounter; Y93.9 Activity, unspecified; Y92.9 Unspecified place or not applicable; Y99.9 Unspecified external cause status; I12.9 Hypertensive chronic kidney disease with stage 1 through stage 4 chronic kidney disease, or unspecified chronic kidney disease; N18.9 Chronic kidney disease, unspecified; I26.99 Other pulmonary embolism without acute cor pulmonale; Z79.899 Other long term (current) drug therapy; Z79.01 Long term (current) use of anticoagulants
CPT/HCPCS: 36415; 70450; 72125; 80053; 83735; 84484; 85025; 93005; 96360; 96361; 99284

== ENCOUNTER → 2025-09-03 12:48 | Outpatient (BNV) | payer OTHER, SELFPAY | PROVIDERS: Emergency Provider Emergency Medicine Emergency Medical Services; PCP Internal Medicine Geriatric Medicine; Visit Provider Radiology Diagnostic Radiology | DX: S09.90XA Unspecified injury of head, initial encounter (principal); W19.XXXA Unspecified fall, initial encounter | CPT/HCPCS: 70450; 72125 ==

== ENCOUNTER → 2025-09-03 13:48 | Outpatient (BNV) | payer OTHER, SELFPAY | PROVIDERS: Emergency Provider Emergency Medicine Emergency Medical Services; PCP Internal Medicine Geriatric Medicine; Visit Provider Internal Medicine Cardiovascular Disease | DX: R42 Dizziness and giddiness (principal) | CPT/HCPCS: 93010 ==

== ENCOUNTER 2025-09-06 18:43 | Outpatient (REF) | payer OTHER, SELFPAY ==
--- OUTSIDE RECORDS SUMMARY | 2025-09-06 13:30 | XMS_ITS | Encounter Summary ---
Author Organization [employer] Address [address] [facility] [address] [place] [address] Care Team Providers Care Qa Analyst Name Role Phone Name, Nitin PIKE Primary Care Provider [phone] Encounter Details Date Type Department Care Team ([facility] st Contact Info) Description 09/06/2025 1:30 PM EDT Office Visit [facility] [address] [place] [address] Thea Warren FNP 230 [place] [address] Urinary frequency (Primary Dx) Social History Tobacco Use Types Packs/Day Years [...] Sign Reading Time Taken Comments Blood Pressure 124/70 09/06/2025 1:13 PM EDT Pulse 124 09/06/2025 1:13 PM EDT Temperature 36.5 C (97.7 F) 09/06/2025 1:13 PM EDT Respiratory Rate 16 09/06/2025 1:13 PM EDT Oxygen Saturation 94% 09/06/2025 1:13 PM EDT Inhaled Oxygen Concentration - - Weight 86.2 kg (190 lb) 09/06/2025 1:13 PM EDT Height 162.6 cm (5' 4 ) 09/06/2025 1:13 PM EDT Body Mass Index 32.61 09/06/2025 1:13 PM EDT documented in this encounter Plan of Treatment Upcoming Encounters Date Type Department Care Team (Late st Contact Info) Description 11/07/2025 10:00 AM EST Office Visit [facility] [address] [place] [address] Name, MD Nitin [address] [place] [address] Scheduled Orders Name Type Priority Associated Diagnoses Orde r Schedule Culture, Urine, Routine Microbiology Routine Urinary frequency Expected: 09/06/2025 (Approximate), Expires: 09/06/2026 documented as of this encounter Procedures Procedure Name Priority Date/Time Associated Diagnosis Comments POCT URINALYSIS DIPSTICK Routine 09/06/2025 1:32 PM EDT Urinary frequency documented in this encounter Results * POCT Urinalysis (09/06/2025 1:32 PM EDT) Color, UA Light Yellow Clarity, UA Clear Glucose, UA Negative Bilirubin, UA Negative Ketones, UA Negative Spec Grav, UA 1.015 Blood, UA Negative Negative, None Detected pH, UA 7.0 Protein, UA Negative Urobilinogen, UA 0.2 Leukocytes, UA Trace Negative, Rare, Trace Nitrite, UA Negative Negative, None Detected Appearance, UA clear QC Media Lot # [id number] Lot# Expiration Date , Urine (Urine, Random) 09/06/2025 1:32 PM EDT Thea Warren CONSUMER MARKETING MANAGER POINT OF CARE TEST ENTER/EDIT ORDERABLES Final Result documented in this encounter Visit Diagnoses Diagnosis Urinary frequency- Primary documented in this encounter Additional Health Concerns Assessment Noted Time PHQ-9 Depression Total Score: 3 04/29/20 25 9:41 AM EDT documented as of this encounter Care Teams Qa Analyst Relationship Specialty Start Date End Date Name, MD Nitin [address] [place] [address] PCP - General Family Medicine 08/26/17 [facility] 09/01/24 documented as of this encounter
--- OUTSIDE RECORDS SUMMARY | 2025-09-06 20:25 | XMS_ITS | Encounter Summary ---
Author Organization [employer] Address [address] [facility] 7[address] [place] [address] Care Team Providers Care Meat Process Worker Name Role Phone Name, Nitin PIKE Primary Care Provider [phone] Reason for Visit * Reason Onset Date Comments Referral 08/24/2025 Encounter Details Date Type Department Care Team ([facility] st Contact Info) Description 08/24/2025 Telephone [facility] 230 [place], [place] [phone] Name, MD Nitin [address] [place] [address] Referral Social History Tobacco Use Types Packs/Day [...] Specialist: Physical therapy Facility Phone # : [phone] Fax #: [phone] documented in this encounter Plan of Treatment Upcoming Encounters Date Type Department Care Team (Late st Contact Info) Description 11/07/2025 10:00 AM EST Office Visit [facility] 230 [place], [place] [phone] Name, MD Nitin [address] [place] [address] documented as of this encounter Visit Diagnoses Not on filedocumented in this encounter Additional Health Concerns Assessment Noted Time PHQ-9 Depression Total Score: 3 04/29/20 9:41 AM EDT documented as of this encounter Care Teams Meat Process Worker Relationship Specialty Start Date End Date Name, MD Nitin [address] [place] [address] PCP - General Family Medicine 08/26/17 [facility] 09/01/24 documented as of this encounter
--- OUTSIDE RECORDS SUMMARY | 2025-09-06 20:25 | XMS_ITS | Encounter Summary ---
Author Organization [employer] Address [address] [facility] [address] [place] [address] Care Team Providers Care Computer Aided Design Operator Name Role Phone Name, Nitin PIKE Primary Care Provider [phone] Reason for Visit * Reason Onset Date Comments Med Refill 11/08/2024 Encounter Details Date Type Department Care Team ([facility] st Contact Info) Description 11/08/2024 Telephone [facility] 230 [place], [place] [phone] Name, MD Nitin 230 [place] [address] Med Refill Social History Tobacco Use Types [...] 5 MG tablet To be sent to: [facility] - [place], [place] - [address] [facility] documented in this encounter Plan of Treatment Upcoming Encounters Date Type Department Care Team ([facility] st Contact Info) Description 11/07/2025 10:00 AM EST Office Visit [facility] 230 [place] [address] Name, MD Nitin [address] [place] [address] documented as of this encounter Visit Diagnoses Not on filedocumented in this encounter Additional Health Concerns Assessment Noted Time PHQ-9 Depression Total Score: 6 02/13/20 24 9:14 AM EDT documented as of this encounter Care Teams Computer Aided Design Operator Relationship Specialty Start Date End Date Name, MD Nitin [address] [place] [address] PCP - General Family Medicine 08/26/17 [facility] 09/01/24 documented as of this encounter
--- OUTSIDE RECORDS SUMMARY | 2025-09-06 20:25 | XMS_ITS | Encounter Summary ---
Author Organization [employer] Address [address] [facility] 7[address] [place] [address] Care Team Providers Care Cake Press Operator Name Role Phone Name, Nitin PIKE Primary Care Provider [phone] Reason for Visit * Reason Comments Med Refill Encounter Details Date Type Department Care Team (Late st Contact Info) Description 08/17/2025 Refill [facility] 230 [place], [place] [phone] Miryam Riley NP 230 [place], [place] [phone] Hypertension, unspecified type Social History Tobacco Use [...] Description 11/07/2025 10:00 AM EST Office Visit [facility] [address] [place] [address] NameNitin MD 230 [place] [address] documented as of this encounter Visit Diagnoses Diagnosis Hypertension, unspecified type documented in this encounter Additional Health Concerns Assessment Noted Time PHQ-9 Depression Total Score: 3 04/29/20 25 9:41 AM EDT documented as of this encounter Care Teams Cake Press Operator Relationship Specialty Start Date End Date Name, MD Nitin [address] [place] [address] PCP - General Family Medicine 08/26/17 [facility] 09/01/24 documented as of this encounter
--- OUTSIDE RECORDS SUMMARY | 2025-09-06 20:25 | XMS_ITS | Encounter Summary ---
Author Organization [employer] Address 75 [facility] 7t [place] [address] Care Team Providers Care Ops Analyst Name Role Phone Name, Nitin PIKE Primary Care Provider [phone] Reason for Visit * Reason Onset Date Comments ER Follow-up 05/04/2024 Encounter Details Date Type Department Care Team ([facility] Contact Info) Description 05/04/2024 Telephone [facility] 230 [place], [place] [phone] Name, MD Nitin 230 [place] [address] ER Follow-up Social History Tobacco Use Types [...] 11:01 AM EDT T/C to pt. Through [employer] id - [id number] for below message, No answer. LVM to call back [phone] . * Telephone Encounter - Adithya Solorzano - 05/04/2024 9:35 AM EDT Noreen with [facility] calling to report ED visit on : Date: 04/28 Hospital: [facility] Seen for: UTI, Nausea, Rash. Noreen advised will be forwarding message to team nurses. Please contact pt at [phone]. documented in this encounter Plan of Treatment Upcoming Encounters Date Type Department Care Team (Late st Contact Info) Description 11/07/2025 10:00 AM EST Office Visit [facility] [address] [place] [address] Name, MD Nitin [address] [place] [address] documented as of this encounter Visit Diagnoses Not on filedocumented in this encounter Additional Health Concerns Assessment Noted Time PHQ-9 Depression Total Score: 6 02/13/20 9:14 AM EDT documented as of this encounter Care Teams Ops Analyst Relationship Specialty Start Date End Date Name, MD Nitin [address] [place] [address] PCP - General Family Medicine 08/26/17 [facility] 09/01/24 documented as of this encounter
--- OUTSIDE RECORDS SUMMARY | 2025-09-06 20:25 | XMS_ITS | Encounter Summary ---
Author Organization [employer] Address 75 [facility] 7t [place] [address] Care Team Providers Care Fashion Show Director Name Role Phone Name, Nitin PIKE Primary Care Provider [phone] Reason for Visit * Reason Onset Date Comments Hospital Follow-up 10/20/2024 Encounter Details Date Type Department Care Team ([facility] Contact Info) Description 10/20/2024 Telephone [facility] 230 [place], [place] [phone] Name, MD Nitin 230 [place] [address] Hospital Follow-up Social History Tobacco Use Types [...] Blood Pressure and Fever Contact pt at [phone] *Send message to [facility] Coordinators documented in this encounter Plan of Treatment Upcoming Encounters Date Type Department Care Team (Late st Contact Info) Description 11/07/2025 10:00 AM EST Office Visit [facility] 230 [place] [address] Name, MD Nitin 230 [place] [address] documented as of this encounter Visit Diagnoses Not on filedocumented in this encounter Additional Health Concerns Assessment Noted Time PHQ-9 Depression Total Score: 6 02/13/20 24 9:14 AM EDT documented as of this encounter Care Teams Fashion Show Director Relationship Specialty Start Date End Date Name, MD Nitin 230 [place] [address] PCP - General Family Medicine 08/26/17 [facility] 09/01/24 documented as of this encounter
--- OUTSIDE RECORDS SUMMARY | 2025-09-06 20:25 | XMS_ITS | Encounter Summary ---
Author Organization [employer] Address 75 [facility] 7[address] [place] [address] Care Team Providers Care Section Weaver Name Role Phone Name, Nitin PIKE Primary Care Provider [phone] Reason for Visit * Reason Comments Med Refill Encounter Details Date Type Department Care Team ([facility] st Contact Info) Description 04/01/2024 Refill [facility] 230 [place], [place] [phone] Name, MD Nitin 230 [place] [address] Rash Social History Tobacco Use Types Packs/Day [...] AM EST Office Visit [facility] [address] [place] [address] NameNitin MD [address] [place] [address] documented as of this encounter Visit Diagnoses Diagnosis Rash Rash and other nonspecific skin eruption documented in this encounter Additional Health Concerns Assessment Noted Time PHQ-9 Depression Total Score: 6 02/13/20 24 9:14 AM EDT documented as of this encounter Care Teams Section Weaver Relationship Specialty Start Date End Date NameNitin MD [address] [place] [address] PCP - General Family Medicine 08/26/17 [facility] 09/01/24 documented as of this encounter
--- OUTSIDE RECORDS SUMMARY | 2025-09-06 20:25 | XMS_ITS | Clinical Summary ---
Author Organization [facility] Address [address] [address] Care Team Providers Care Regulatory Compliance Coordinator Name Role Phone Name, Nitin PIKE Primary Care Provider [phone] Allergies Active Allergy Reactions Criticality Noted Date [...] patient's age to complete this topic [place] [address] MCR ([id number]) [place] [phone] [facility] MCR ([id number]) Care Teams Regulatory Compliance Coordinator Relationship Specialty Start Date End Date Name, MD Nitin [address] [place] [address] PCP - General Internal Medicine 10/15/22
--- OUTSIDE RECORDS SUMMARY | 2025-09-06 20:25 | XMS_ITS | Encounter Summary ---
Author Organization [employer] Address 75 [facility] 7t [place] [address] Care Team Providers Care Correspondence Dictator Name Role Phone Name, Nitin PIKE Primary Care Provider [phone] Reason for Visit * Reason Onset Date Comments ER Follow-up 05/31/2024 Encounter Details Date Type Department Care Team ([facility] Contact Info) Description 05/31/[address] [facility]INE 230 [place], [place] [phone] Name, MD Nitin 230 [place] [address] ER Follow-up Social History Tobacco Use Types [...] 1:36 PM EDT T/C to Pat ([facility]) [phone] for below message, no answer. LVM to call back on [phone]. * Telephone Encounter - Melany Santos RN - 05/31/2024 1:32 PM EDT DAVID T/C to pt. Through [employer] id - [id number] for below message, pt. Had recent fall and ED visit at [facility]. RN will request GRACE piedra from [facility]. Pt. Is doing good, states I am tired andsleeping. Pt. Dose not has any question or concern right now. Pt. Already has HDF apt. Schedule on 06/10/2024. Pt. Advised to give call to [facility] if any questions or concerns. [...] [facility] 230 [place] [address] Name, MD Nitin 230 [place] [address] documented as of this encounter Visit Diagnoses Not on filedocumented in this encounter Additional Health Concerns Assessment Noted Time PHQ-9 Depression Total Score: 6 02/13/20 24 9:14 AM EDT documented as of this encounter Care Teams Correspondence Dictator Relationship Specialty Start Date End Date Name, MD Nitin [address] [place] [address] PCP - General Family Medicine 08/26/17 [facility] 09/01/24 documented as of this encounter
--- OUTSIDE RECORDS SUMMARY | 2025-09-06 20:25 | XMS_ITS | Encounter Summary ---
Author Organization [employer] Address [address] [facility] [address] [place] [address] Care Team Providers Care Peeler Operator Name Role Phone Name, Nitin PIKE Primary Care Provider [phone] Reason for Visit * Reason Comments Med Refill Encounter Details Date Type Department Care Team (Late st Contact Info) Description 04/20/2025 Refill [facility] 230 [place] [address] Zechariah Cheung MD 230 [place] [address] Allergic rhinitis, unspecified seasonality, unspecified trigger Social [...] 10:00 AM EST Office Visit [facility] 230 [place] [address] NameNitin MD 230 [place] [address] documented as of this encounter Visit Diagnoses Diagnosis Allergic rhinitis, unspecified seasonality, unspecified trigger documented in this encounter Additional Health Concerns Assessment Noted Time PHQ-9 Depression Total Score: 6 02/13/20 9:14 AM EDT documented as of this encounter Care Teams Peeler Operator Relationship Specialty Start Date End Date Nitin Echevarria MD [address] [place] [address] PCP - General Family Medicine 08/26/17 [facility] 09/01/24 documented as of this encounter
--- OUTSIDE RECORDS SUMMARY | 2025-09-06 20:25 | XMS_ITS | Clinical Summary ---
Author Organization [facility] Address [address] [place] [address] Phone Care Team Providers Care Twist Tester Name Role Phone Physician, No Pcp Primary [...] [facility] Comment:Calculation based on the Chronic [...] [facility] [address] [place] [address], from Last 3 Months or Most Recently Relevant to Health Maintenance Insurance [facility] Member Subscriber Plan / Payer (Ef fective 2021-Present) Name:Noreen Wing Relation to Subscriber:Self Name:Noreen Wing Payer ID:[id number] Group ID:[id number] Type:Not on file Address: [address] [place] [address] Care Teams Twist Tester Relationship Specialty Start Date End Date Physician, No Pcp PCP - General 09/22/24
--- OUTSIDE RECORDS SUMMARY | 2025-09-06 20:26 | XMS_ITS | Encounter Summary ---
Author Organization [employer] Address 75 [facility] 7[address] [place] [address] Care Team Providers Care Form Block Maker Name Role Phone Name, Nitin PIKE Primary Care Provider [phone] Reason for Visit * Reason Onset Date Comments Results 08/29/2023 Encounter Details Date Type Department Care Team ([facility] st Contact Info) Description 08/29/2023 Telephone [facility] 230 [place], [place] [phone] Name, MD Nitin 230 [place] [address] Results Social History Tobacco Use Types Packs/Day [...] 09/01/2023 11:51 AM EDT Pt evaluated in [facility] today and is scheduled with pcp 09/03/23. * Telephone Encounter - Janette Huitron - 08/29/2023 4:06 PM EDT Tc from pt requesting a call in regards to urine results. Please contact pt at [phone] (South African) documented in this encounter Plan of Treatment Upcoming Encounters Date Type Department Care Team (Late st Contact Info) Description 11/07/2025 10:00 AM EST Office Visit [facility] [address] [place] [address] Name, MD Nitin [address] [place] [address] documented as of this encounter Visit Diagnoses Not on filedocumented in this encounter Additional Health Concerns Assessment Noted Time PHQ-9 Depression Total Score: 12 023 9:37 AM EDT documented as of this encounter Care Teams Form Block Maker Relationship Specialty Start Date End Date Name, MD Nitin [address] [place] [address] PCP - General Family Medicine 08/26/17 [facility] 09/01/24 documented as of this encounter
--- OUTSIDE RECORDS SUMMARY | 2025-09-06 20:26 | XMS_ITS | Encounter Summary ---
Author Organization [employer] Address 75 [facility] 7[address] [place] [address] Care Team Providers Care Plate Worker Name Role Phone Name, Nitin PIKE Primary Care Provider [phone] Reason for Visit * Reason Onset Date Comments triage 12/18/2022 Encounter Details Date Type Department Care Team ([facility] st Contact Info) Description 12/18/2022 Telephone [facility] 230 [place], [place] [phone] Name, MD Nitin [address] [place] [address] triage Social History Tobacco Use Types Packs/Day [...] 12/18/2022 2:35 PM EST Called pt. Via [facility] automotive parts interpreter [id number] Eduardo. Pt. States that she has a [...] phone. Please reach out to pt. With Georgian speaking another time to see what her [...] Description 11/07/2025 10:00 AM EST Office Visit [facility] 230 [place] [address] Name, MD Nitin 230 [place] [address] documented as of this encounter Visit Diagnoses Not on filedocumented in this encounter Care Teams Plate Worker Relationship Specialty Start Date End Date Name, MD Nitin 230 [place] [address] PCP - General Family Medicine 08/26/17 [facility] 09/01/24 documented as of this encounter
--- OUTSIDE RECORDS SUMMARY | 2025-09-06 20:26 | XMS_ITS | Encounter Summary ---
Author Organization [employer] Address 75 [facility] 7t [place] [address] Care Team Providers Care Integrated Circuit Ic Layout Designer Name Role Phone Name, Nitin PIKE Primary Care Provider [phone] Encounter Details Date Type Department Care Team ([facility] Contact Info) Description 08/08/2023 Telephone [facility] MEDICINE [address] [place] [phone] Name, MD Nitin [address] [place] [address] [phone] Social History Tobacco Use Types Packs/Day Years [...] Description 11/07/2025 10:00 AM EST Office Visit [facility] MED[facility]INE [address] [place] [address] [phone] Name, MD Nitin [address] [place] [address] [phone] documented as of this encounter Visit Diagnoses Not on filedocumented in this encounter Additional Health Concerns Assessment Noted Time PHQ-9 Depression Total Score: 12 023 9:37 AM EDT documented as of this encounter Care Teams Integrated Circuit Ic Layout Designer Relationship Specialty Start Date End Date Name, MD Nitin 230 [place] [address] PCP - General Family Medicine 08/26/17 [facility] 09/01/24 documented as of this encounter
--- OUTSIDE RECORDS SUMMARY | 2025-09-06 20:26 | XMS_ITS | Encounter Summary ---
Author Organization [employer] Address [address] [facility] 7t [place] [address] Care Team Providers Care Press Assistant Name Role Phone Name, Nitin PIKE Primary Care Provider [phone] Encounter Details Date Type Department Care Team (Late st Contact Info) Description 09/03/2025 Orders Only GENERIC EXTERNAL DATA DEPARTMENT Provider, [...] Description 11/07/2025 10:00 AM EST Office Visit [facility] [address] [place] [phone] Name, MD Nitin [address] [place] [address] documented as of this encounter Procedures Procedure Name Priority Date/Time Associated Diagnosis Comments CT CERVICAL SPINE WO CONTRAST Routine 09/03/2025 2:[address] HEAD WO CONTRAST Routine 09/03/2025 2 :51 PM EDT HIGH SENSITIVITY TROPONIN I Routine 09/03/2025 2:08 PM EDT CBC WITH AUTO DIFFERENTIAL Routine 09/03/2025 2:08 PM EDT MAGNESIUM Routine 09/03/2025 2:08 PM EDT COMPREHENSIVE METABOLIC PANEL Routine 09/03/2025 2:08 PM EDT documented in this encounter Results * CT Head w/o Contrast (09/03/2025 2:51 PM EDT) Anatomical Region Laterality Modality Head, Neck Computed Tomogra phy 09/03/2025 2:51 PM EDT Narrative 09/03/2025 2:52 PM EDT [address] [address] [address] Scan Report Signed Patient: Noreen Wing MR#: [id number] : 1945 Acct:[id number] Age/Sex: 79 / F ADM Date: 09/03/25 Loc: HO.ED Attending Dr: Ordering Physician: Dyana Andrews Date of Service: 09/03/25 Procedure(s): CT head/brain wo IV con Accession Number(s): [id number] cc: Dyana Andrews; Name,Nitin PIKE Report Number: [id number]: Total DLP = 0.00 mGy-cm Reason for Exam: fall, head strike CLINICAL HISTORY: fall, head strike CT head without contrast Comparison: CT/SR - CT HEAD/BRAIN WO IV CON - 05/04/2025 10:16 PM EDT Findings: No intracranial mass, midline shift, hydrocephalus, or acute hemorrhage. No CT evidence of acute ischemia. Visualized paranasal sinuses and mastoid air cells normal. Orbits unremarkable. No skull fracture. Impression: 1. No acute intracranial abnormalities. This document has been electronically signed by: Ash Sherman MD on 09/03/2025 14:51:18 Dictated By: Ash Sherman MD Signed By: <Electronically signed by Ash Sherman MD in OV> 09/03/25 1452 DD/ 1451 TD/TT: 09/03/25 1451 Pens And Pencils Repairer: Procedure Note Donotuseinterpreter, Image - 09/03/[address] [address] [address] Scan Report Signed Patient: Noreen WingMR#: [id number] : 1945cct:[id number] Age/Sex: 79 / FADM Date: 09/03/25 Loc: HO.ED Attending Dr: Ordering Physician: Dyana Andrews Date of Service: 09/03/25 Procedure(s): CT head/brain wo IV con Accession Number(s): [id number] cc: Dyana Andrews; Name,Nitin PIKE Report Number: [id number]: Total DLP = 0.00 mGy-cm Reason for Exam: fall, head strike CLINICAL HISTORY: fall, head strike CT head without contrast Comparison: CT/SR - CT HEAD/BRAIN WO IV CON - 05/04/2025 10:16 PM EDT Findings: No intracranial mass, midline shift, hydrocephalus, or acute hemorrhage. No CT evidence of acute ischemia. Visualized paranasal sinuses and mastoid air cells normal. Orbits unremarkable. No skull fracture. Impression: 1. No acute intracranial abnormalities. This document has been electronically signed by: Ash Sherman MD on 09/03/2025 14:51:18 Dictated By: Ash Sherman MD Signed By: <Electronically signed by Ash Sherman MD in OV> 09/03/251451 DD/ 50 TD/TT: 09/03/251450 [employer]ens [employer] Pencils Repairer: [facility] External Provider IMG CT PROCEDURES Edited Result - Final * CT Cervical Spine w/o Contrast (09/03/2025 2:51 PM EDT) Anatomical Region Laterality Modality Spine, C-spine Computed Tomogra phy 09/03/2025 2:51 PM EDT Narrative 09/03/2025 2:52 PM EDT [place] [address] CT Scan Report Signed Patient: Noreen Wing MR#: [id number] : 1945 Acct:[id number] Age/Sex: 79 / F ADM Date: 09/03/25 Loc: HO.ED Attending Dr: Ordering Physician: Dyana Andrews Date of Service: 09/03/25 Procedure(s): CT cervical spine wo IV con Accession Number(s): [id number] cc: Dyana Andrews; Name,Nitin PIKE Report Number: [id number]: Total DLP = 1246.00 mGy-cm Reason for Exam: fall, head strike CLINICAL HISTORY: fall, head strike CT cervical spine without contrast Comparison: 05/04/2025 Findings: Normal limited view of the intracranial contents. Soft tissues of the neck are normal. Lung apices are normal. Normal vertebral body alignment. No fractures or dislocations. Diffuse cervical degenerative changes are present, most significant at C5-6 level. Impression: 1. No cervical vertebral fracture or traumatic malalignment. This document has been electronically signed by: Ash Sherman MD on 09/03/2025 14:51:06 Dictated By: Ash Sherman MD Signed By: <Electronically signed by Ash Sherman MD in OV> 09/03/251450 DD/ 50 TD/TT: 09/03/251450 [employer] Penc[employer] Repairer: Procedure Note Donotuseinterpreter, Image - 09/03/[address] [place] [address] [address] Scan Report Signed Patient: Noreen WingMR#: [id number] : 1945cct:[id number] Age/Sex: 79 / FADM Date: 09/03/25 Loc: HO.ED Attending Dr: Ordering Physician: Dyana Andrews Date of Service: 09/03/25 Procedure(s): CT cervical spine wo IV con Accession Number(s): [id number] cc: Dyana Andrews; Name,Nitin PIKE Report Number: [id number]: Total DLP = 1246.00 mGy-cm Reason for Exam: fall, head strike CLINICAL HISTORY: fall, head strike CT cervical spine without contrast Comparison: 05/04/2025 Findings: Normal limited view of the intracranial contents. Soft tissues of the neck are normal. Lung apices are normal. Normal vertebral body alignment. No fractures or dislocations. Diffuse cervical degenerative changes are present, most significant at C5-6 level. Impression: 1. No cervical vertebral fracture or traumatic malalignment. This document has been electronically signed by: Ash Sherman MD on 09/03/2025 14:51:06 Dictated By: Ash Sherman MD Signed By: <Electronically signed by Ash Sherman MD in OV> 09/03/251450 DD/ 50 TD/TT: 09/03/25 145 [employer] Repairer: [facility] External Provider IMG CT PROCEDURES Edited Result - Final * High Sensitivity Troponin I (09/03/2025 2:08 PM EDT) [facility] TROPONIN I HIGH SENSITIVITY <2.7 <3.5 - 17.0 ng/L [facility] Comment:The [place]ke[place] high sens itivity Troponin-I results should beused in conjunction with other diagnostic information suchas ECG, clinical observations and information, and patientsymptoms to aid in the diagnosis of [place]. 09/03/2025 2:08 PM EDT 09/03/2025 2:12 PM EDT Generic External Data Provider LAB BLOOD ORDERAB LES Final Result Performing Organization Address [facility]/ZIP Co de Phone Number [facility] [address] [place] [phone] * Magnesium (09/03/2025 2:08 PM EDT) [facility] Magnesium 2.0 1.6 - 2.6 mg/dL [facility] 09/03/2025 2:08 PM EDT 09/03/2025 2:12 PM EDT Generic External Data Provider LAB BLOOD ORDERAB LES Final Result Performing Organization Address [facility] Co de Phone Number [facility] [address] [place] [phone] * (ABNORMAL) Comprehensive Metabolic Panel (09/03/2025 2:08 PM EDT) [facility] Sodium 139 135 - 145 mmol/L [facility] Potassium 4.1 3.3 - 5.1 mmol/L [facility] Chloride 105 96 - 108 mmol/L [facility] Carbon Dioxide 28 22 - 29 mmol/L [facility] Anion Gap 10(L) 12 - 20 [facility] Urea Nitrogen (BUN) 24(H) 9 - 16 mg/dL [facility] Creatinine, Serum 1.04 0.5 - 1.4 mg/dL [facility] Creatinine Clr Calc Pharmacy 45.7 [facility] Comment:Provided height and weight: 162.56 cm,88.7 kg.eGFR (calculated from the MDRD study equation) and eCrCl(calculated from the Cockcroft-Gault equation) are based ondifferent parameters and may not yield comparable results.If eCrCl result is absurd, please check patient'sheight/weight. Estimated Glomerular Filt Rate 51 [facility] Comment:Chronic Kidney Disea se: Estimated GFR < 60 mL/min/1.06z5Kqkekb Kidney Disease: Estimated GFR < 15 mL/min/1.73m2 Glucose 105 60 - 115 mg/dL [facility] Calcium 8.9 8.4 - 10.2 mg/dL [facility] Bilirubin, Total 0.2 0.0 - 1.0 mg/dL [facility] Aspartate Amino Transferase 27 5 - 31 U/L [facility] Alanine Aminotransferase 18 0 - 31 U/L [facility] Total Protein 7.7 6.5 - 8.0 g/dL [facility] Albumin Level 4.0 3.5 - 5.0 g/dL [facility] Alkaline Phosphatase 81 39 - 117 U/L [facility] 09/03/2025 2:08 PM EDT 09/03/2025 2:12 PM EDT us Generic External Data Provider LAB BLOOD ORDERAB LES Final Result [facility] [address] [place] [phone] [phone] * (ABNORMAL) CBC auto differential (09/03/2025 2:08 PM EDT) White Blood Count 7.5 4.8 - 10.8 X10*3/uL [facility] Red Blood Count 3.89(L) 4.20 - 5.50 X10*6/uL [facility] Hemoglobin 10.9(L) 12.0 - 16.0 g/dl [facility] Hematocrit 32.7(L) 37.0 - 47.0 % [facility] Mean Corpuscular Volume 84.1 80.0 - 98.0 fL [facility] Mean Corpuscular Hemoglobin 28.0 27.0 - 33.0 pg [facility] Mean Corpuscular HGB Conc 33.3 31.0 - 35.0 g/dl [facility] Red Cell Distribution Width 14.0 11.0 - 16.0 % [facility] Platelet Count 278 160 - 400 X10*3/uL [facility] Mean Platelet Volume 8.4(L) 9.4 - 12.3 fL [facility] Neutrophils Percent Auto 65.2 45 - 73 % [facility] Imm Gran Pct Auto 0.4 0.0 - 0.4 % [facility] Lymphocytes Percent Auto 21.8 20 - 40 % [facility] Monocytes Percent Auto 10.5 2 - 11 % [facility] Eosinophils Percent Auto 1.6 0 - 4 % [facility] Basophils Percent Auto 0.5 0 - 2 % [facility] NRBC Pct Auto 0.0 0.0 - 0.2 /100WBC [facility] Neutrophils Absolute Auto 4.9 2.0 - 8.3 x10*3/uL [facility] Imm Gran Abs Auto 0.03 0.00 - 0.03 X10*3/uL [facility] Lymphocytes Absolute Auto 1.6 1.2 - 4.9 X10*3/uL [facility] Monocytes Absolute Auto 0.8 0.1 - 1.2 X10*3/uL [facility] Eosinophils Absolute Auto 0.1 0.0 - 0.4 X10*3/uL [facility] Basophils Absolute Auto 0.0 0.0 - 0.2 X10*3/uL [facility] NRBC Abs Auto 0.000 0.0 - 0.012 X10*3/uL [facility] 09/03/2025 2:08 PM EDT 09/03/2025 2:12 PM EDT us Generic External Data Provider LAB BLOOD ORDERAB LES Final Result [facility] [address] [place] [phone] documented in this encounter Visit Diagnoses Not on filedocumented in this encounter Additional Health Concerns Assessment Noted Time PHQ-9 Depression Total Score: 3 04/29/20 25 9:41 AM EDT documented as of this encounter Care Teams Press Assistant Relationship Specialty Start Date End Date Name, MD Nitin [address] [place] [address] PCP - General Family Medicine 08/26/17 [facility] 09/01/24 documented as of this encounter
--- OUTSIDE RECORDS SUMMARY | 2025-09-06 20:26 | XMS_ITS | Encounter Summary ---
Author Organization [employer] Address [address] [facility] 7t [place] [address] Care Team Providers Care General Merchandise Manager Name Role Phone Name, Nitin PIKE Primary Care Provider Encounter Details Date Type Department Care Team (Latest Contact Info) Description 09/06/2025 Travel Social History Tobacco Use Types Packs/Day [...] EST Office Visit [facility] [address] [place] [address] Name, MD Nitin [address] [place] [address] documented as of this encounter Visit Diagnoses Not on filedocumented in this encounter Additional Health Concerns Assessment Noted Time PHQ-9 Depression Total Score: 3 04/29/20 25 9:41 AM EDT documented as of this encounter Care Teams General Merchandise Manager Relationship Specialty Start Date End Date NameNitin MD [address] [place] [address] PCP - General Family Medicine 08/26/17 [facility] 09/01/24 documented as of this encounter
--- OUTSIDE RECORDS SUMMARY | 2025-09-06 20:26 | XMS_ITS | Encounter Summary ---
Author Organization [employer] Address [address] [facility] [address] [place] [address] Care Team Providers Care Millwright Supervisor Name Role Phone Name, Nitin PIKE Primary Care Provider [phone] Encounter Details Date Type Department Care Team (Late st Contact Info) Description 11/06/2022 Orders Only [facility] [address] [place], [place] [phone] Lisha Kelly LPN Social History Tobacco Use [...] 10:00 AM EST Office Visit [facility] [address] [place] [address] NameNitin MD [address] [place] [address] documented as of this encounter Visit Diagnoses Not on filedocumented in this encounter Care Teams Millwright Supervisor Relationship Specialty Start Date End Date Nitin Echevarria MD [address] [place] [address] PCP - General Family Medicine 08/26/17 [facility] 09/01/24 documented as of this encounter
--- OUTSIDE RECORDS SUMMARY | 2025-09-06 20:26 | XMS_ITS | Encounter Summary ---
Author Organization [employer] Address [address] [facility] 7[address] [place] [address] Care Team Providers Care Director Health Name Role Phone Name, Nitin PIKE Primary Care Provider [phone] Reason for Visit * Reason Onset Date Comments Durable Medical Equipment 12/09/2023 Encounter Details Date Type Department Care Team ([facility] st Contact Info) Description 12/09/2023 Telephone [facility] [address] [place], [place] [phone] Name, MD Nitin [address] [place], [place] [phone] Durable Medical Equipment Social History Tobacco Use [...] EST DME rx faxed to [facility] as requested. RN will consult with S nurse and provide referral. * Telephone Encounter - Fozia Jacob RN - 12/09/2023 4:58 PM EST Call returned to [facility] at [facility] [phone] [facility] states that [facility] attempted to provide PT at home but pt refused. [facility] pt is requesting outpatient PT. [facility] pt is seeing a counselor more regularly and has agreed to VNA referral. Reports pt has had 3 falls in the past [address] [facility] states [facility] no longer has visiting nurses. [facility] recommends [employer] or [facility] for VNA referral. [facility] also requesting DME rx for rollator walker and a straight cane. Requests that DME rx be faxed to [phone]. Advised requests will be sent to pcp. * Telephone Encounter - Adithya Solorzano - 12/09/2023 4:25 PM EST Tc from [facility] requesting DME: Rollator walker . documented in this encounter Plan of Treatment Upcoming Encounters Date Type Department Care Team (Late st Contact Info) Description 11/07/2025 10:00 AM EST Office Visit [facility] [address] [place] [address] Name, MD Nitin [address] [place] [address] documented as of this encounter Visit Diagnoses Not on filedocumented in this encounter Additional Health Concerns Assessment Noted Time PHQ-9 Depression Total Score: 12 023 9:37 AM EDT documented as of this encounter Care Teams Director Health Relationship Specialty Start Date End Date Name, MD [facility]itin [facility] [place] [address] PCP - General Family Medicine 08/26/17 [facility] 09/01/24 documented as of this encounter
--- OUTSIDE RECORDS SUMMARY | 2025-09-06 20:26 | XMS_ITS | Encounter Summary ---
Author Organization [employer] Address [address] [facility] [address] [place] [address] Care Team Providers Care Asphalt Paving Supervisor Name Role Phone Name, Nitin PIKE Primary Care Provider [phone] Encounter Details Date Type Department Care Team ([facility] Contact Info) Description 12/17/2022 Orders Only [facility] [address] [place], [place] [phone] Lisha Kelly LPN Social History Tobacco Use [...] Office Visit [facility] [address] [place] [address] Nitin Echevarria MD [address] [place] [address] documented as of this encounter Visit Diagnoses Not on filedocumented in this encounter Care Teams Asphalt Paving Supervisor Relationship Specialty Start Date End Date NameNitin MD [address] [place] [address] PCP - General Family Medicine 08/26/17 [facility] 09/01/24 documented as of this encounter
--- OUTSIDE RECORDS SUMMARY | 2025-09-06 20:26 | XMS_ITS | Encounter Summary ---
Author Organization [employer] Address [address] [facility] 7[address] [place] [address] Care Team Providers Care Professional Engineer Name Role Phone Name, Nitin PIKE Primary Care Provider [phone] Reason for Visit * Reason Onset Date Comments Verbal Orders 12/15/2023 Encounter Details Date Type Department Care Team ([facility] st Contact Info) Description 12/15/2023 Telephone [facility] [address] [place], [place] [phone] Name, MD Nitin [address] [place] [address] Verbal Orders Social History Tobacco Use Types [...] 12:03 PM EST Tc from [facility] [employer] requesting verbal order to see pt 2 times a week for 4 weeks for Occupational Therapy, please contact [facility] at [phone] documented in this encounter Plan of Treatment Upcoming Encounters Date Type Department Care Team (Late st Contact Info) Description 11/07/2025 10:00 AM EST Office Visit [facility] [address] [place] [address] Name, MD Nitin [address] [place] [address] documented as of this encounter Visit Diagnoses Not on filedocumented in this encounter Additional Health Concerns Assessment Noted Time PHQ-9 Depression Total Score: 12 023 9:37 AM EDT documented as of this encounter Care Teams Professional Engineer Relationship Specialty Start Date End Date Name, MD Nitin [address] [place] [address] PCP - General Family Medicine 08/26/17 [facility] 09/01/24 documented as of this encounter
--- OUTSIDE RECORDS SUMMARY | 2025-09-06 20:26 | XMS_ITS | Encounter Summary ---
Author Organization [employer] Address [address] [facility] 7t [place] [address] Care Team Providers Care Exercise Science Internship Name Role Phone Name, Nitin PIKE Primary Care Provider [phone] Reason for Visit * Reason Comments Med Refill Encounter Details Date Type Department Care Team (Late st Contact Info) Description 01/09/2025 Refill [facility] [address] [place], [place] [phone] Name, MD Nitin [address] [place] [address] Hypertension, unspecified type Social History Tobacco Use [...] 10:00 AM EST Office Visit [facility] [address] [place] [address] NameNitin MD [address] [place] [address] documented as of this encounter Visit Diagnoses Diagnosis Hypertension, unspecified type documented in this encounter Additional Health Concerns Assessment Noted Time PHQ-9 Depression Total Score: 6 02/13/20 9:14 AM EDT documented as of this encounter Care Teams Exercise Science Internship Relationship Specialty Start Date End Date NameNitin MD [address] [place] [address] PCP - General Family Medicine 08/26/17 [facility] 09/01/24 documented as of this encounter
--- OUTSIDE RECORDS SUMMARY | 2025-09-06 20:26 | XMS_ITS | Encounter Summary ---
Author Organization [employer] Address [address] [facility] 7[address] [place] [address] Care Team Providers Care Manager Division Name Role Phone Name, Nitin PIKE Primary Care Provider Reason for Visit * Reason Onset Date Comments Order(s) 12/09/2023 Encounter Details Date Type Department Care Team ([facility] Contact Info) Description 12/09/2023 Telephone [facility] [address] [place], [place] [phone] Name, MD Nitin [address] [place], [place] [phone] Order(s) Social History Tobacco Use Types Packs/Day [...] orders. If any questions please contact Noreen [phone]. documented in this encounter Plan of Treatment Upcoming Encounters Date Type Department Care Team (Late st Contact Info) Description 11/07/2025 10:00 AM EST Office Visit [facility] [address] [place] [address] Name, MD Nitin [address] [place] [address] documented as of this encounter Visit Diagnoses Not on filedocumented in this encounter Additional Health Concerns Assessment Noted Time PHQ-9 Depression Total Score: 12 023 9:37 AM EDT documented as of this encounter Care Teams Manager Division Relationship Specialty Start Date End Date Name, MD Nitin [address] [place] [phone] PCP - General Family Medicine 08/26/17 [facility] 09/01/24 documented as of this encounter
--- OUTSIDE RECORDS SUMMARY | 2025-09-06 20:26 | XMS_ITS | Encounter Summary ---
Author Organization [employer] Address [address] [facility] [address] [place] [address] Care Team Providers Care Cupola Hoist Operator Name Role Phone Name, Nitin PIKE Primary Care Provider [phone] Reason for Visit * Reason Onset Date Comments Chart Prep 09/05/2025 Encounter Details Date Type Department Care Team ([facility] st Contact Info) Description 09/05/2025 Telephone [facility] [address] [place], [place] [phone] Name, MD Nitin [address] [place] [address] Chart Prep Social History Tobacco Use Types Packs/Day Years [...] encounter Miscellaneous Notes * Telephone Encounter - Avinash Issa [place] - 09/05/2025 3:05 PM EDT Chart Prep Labs: done Images: done Referrals: complete Vaccines due: Covid Screenings: Alcohol/Substance Use Screening Overdue care gaps: SBIRT and Oral health screening HDF-NOTES IN CHART documented in this encounter Plan of Treatment Upcoming Encounters Date Type Department Care Team (Late st Contact Info) Description 11/07/2025 10:00 AM EST Office Visit [facility] [address] [place] [address] Name, MD Nitin [address] [place] [address] documented as of this encounter Visit Diagnoses Not on filedocumented in this encounter Additional Health Concerns Assessment Noted Time PHQ-9 Depression Total Score: 3 04/29/20 25 9:41 AM EDT documented as of this encounter Care Teams Cupola Hoist Operator Relationship Specialty Start Date End Date Name, MD Nitin [address] [place] [address] PCP - General Family Medicine 08/26/17 [facility] 09/01/24 documented as of this encounter
--- OUTSIDE RECORDS SUMMARY | 2025-09-06 20:26 | XMS_ITS | Encounter Summary ---
Author Organization [employer] Address [address] [facility] [address] [place] [address] Care Team Providers Care Risk Reduction Counselor Name Role Phone Name, Nitin PIKE Primary Care Provider [phone] Reason for Visit * Reason Comments Med Refill Encounter Details Date Type Department Care Team ([facility] st Contact Info) Description 06/28/2024 Refill [facility] [address] [place], [place] [phone] Mel Anguiano FNP [address] [place] [address] Social History Tobacco Use Types Packs/Day Years [...] 10:00 AM EST Office Visit [facility] [address] [place] [address] Name, MD Nitin [address] [place] [address] documented as of this encounter Visit Diagnoses Not on filedocumented in this encounter Additional Health Concerns Assessment Noted Time PHQ-9 Depression Total Score: 6 02/13/20 24 9:14 AM EDT documented as of this encounter Care Teams Risk Reduction Counselor Relationship Specialty Start Date End Date Name, MD Nitin [address] [place] [address] PCP - General Family Medicine 08/26/17 [facility] 09/01/24 documented as of this encounter
--- OUTSIDE RECORDS SUMMARY | 2025-09-06 20:26 | XMS_ITS | Encounter Summary ---
Author Organization [employer] Address [address] [facility] [address] [place] [address] Care Team Providers Care Executive Sous Chef Name Role Phone Name, Nitin PIKE Primary Care Provider [phone] Reason for Visit * Reason Comments Med Refill Encounter Details Date Type Department Care Team (Late st Contact Info) Description 08/16/2024 Refill [facility] [address] [place], [place] [phone] Name, MD Nitin [address] [place] [address] Heartburn Social History Tobacco Use Types Packs/Day [...] Description 11/07/2025 10:00 AM EST Office Visit [facility] [address] [place] [phone] NameNitin MD [address] [place] [phone] documented as of this encounter Visit Diagnoses Diagnosis Heartburn documented in this encounter Additional Health Concerns Assessment Noted Time PHQ-9 Depression Total Score: 6 02/13/20 24 9:14 AM EDT documented as of this encounter Care Teams Executive Sous Chef Relationship Specialty Start Date End Date NameNitin MD [address] [place] [phone] PCP - General Family Medicine 08/26/17 [facility] 09/01/24 documented as of this encounter
--- OUTSIDE RECORDS SUMMARY | 2025-09-06 20:26 | XMS_ITS | Encounter Summary ---
Author Organization [employer] Address [address] [facility] [address] [place] [address] Care Team Providers Care Gear Inspector Name Role Phone Name, Nitin PIKE Primary Care Provider [phone] Encounter Details Date Type Department Care Team ([facility] Contact Info) Description 01/06/2023 Orders Only [facility] MED [facility] PEDS [address] [place], [place] [phone] Lisha Kelly LPN Social History Tobacco Use [...] Description 11/07/2025 10:00 AM EST Office Visit [facility] MEDICINE [address] [place], [place] [phone] NameNitin MD [address] [place] [address] documented as of this encounter Visit Diagnoses Not on filedocumented in this encounter Care Teams Gear Inspector Relationship Specialty Start Date End Date NameNitin MD [address] [place] [address] PCP - General Family Medicine 08/26/17 [facility] 09/01/24 documented as of this encounter
--- OUTSIDE RECORDS SUMMARY | 2025-09-06 20:26 | XMS_ITS | Encounter Summary ---
Author Organization [employer] Address [address] [facility] [address] [place] [address] Care Team Providers Care Patroller Name Role Phone Name, Nitin PIKE Primary Care Provider [phone] Encounter Details Date Type Department Care Team ([facility] st Contact Info) Description 05/26/2023 Orders Only [facility] MEDICINE [address] [place] [address] Noreen Fox MD [address] [place] [address] Social History Tobacco Use Types Packs/Day Years [...] Upcoming Encounters Date Type Department Care Team ([facility] st Contact Info) Description 11/07/2025 10:00 AM EST Office Visit [facility] [address] [place] [phone] Name, MD Nitin [address] [place] [address] documented as of this encounter Visit Diagnoses Not on filedocumented in this encounter Care Teams Patroller Relationship Specialty Start Date End Date Name, [place] [address] PCP - General Family Medicine 08/26/17 [facility] 09/01/24 documented as of this encounter
--- OUTSIDE RECORDS SUMMARY | 2025-09-06 20:26 | XMS_ITS | Encounter Summary ---
Author Organization [employer] Address [address] [facility] [address] [place] [address] Care Team Providers Care Health Care Coordinator Name Role Phone Name, Nitin PIKE Primary Care Provider [phone] Reason for Visit * Reason Onset Date Comments Verbal Orders 01/02/2024 Encounter Details Date Type Department Care Team ([facility] st Contact Info) Description 01/02/2024 Telephone [facility] [address] [place], [place] [phone] Name, MD Nitin [address] [place] [address] Verbal Orders Social History Tobacco Use Types [...] No answer. LVM to call back on [phone]. * Telephone Encounter - Melany Santos RN - 01/06/2024 10:25 AM EST Please review and advise for below request. * Telephone Encounter - Deana Bazzi - 01/02/2024 3:44 PM EST Tc from [facility] with S requesting verbal orders for discharge pt from Occupational Therapy, due to pt refuses services, please contact [facility] at [phone]. documented in this encounter Plan of Treatment Upcoming Encounters Date Type Department Care Team (Late st Contact Info) Description 11/07/2025 10:00 AM EST Office Visit [facility] [address] [place] [phone] Name, MD Nitin [address] [place] [address] documented as of this encounter Visit Diagnoses Not on filedocumented in this encounter Additional Health Concerns Assessment Noted Time PHQ-9 Depression Total Score: 12 023 9:37 AM EDT documented as of this encounter Care Teams Health Care Coordinator Relationship Specialty Start Date End Date Name, MD Nitin [address] [place] [phone] PCP - General Family Medicine 08/26/17 [facility] 09/01/24 documented as of this encounter
--- OUTSIDE RECORDS SUMMARY | 2025-09-06 20:26 | XMS_ITS | Clinical Summary ---
Author Organization [employer] Address [address] [place] [address] [address] [place] [address] Care Team Providers Care Director Of Materials Name Role Phone Name, Nitin PIKE Primary [...] morning and at bedtime (allergies). 10 mL Active amLODIPine (Norvasc) 10 MG tabletIndications :Hypertension, [...] MOUTH EVERY 8 HOURS NEEDED FOR PAIN (NICARAGUAN LABEL) 90 tablet Active omeprazole (PriLOSEC) [address] capsuleIndication s:Heartburn TAKE 1 CAPSULE BY MOUTH EVERY MORNING 1 HOUR BEFORE BREAKFAST 90 capsule 1 Active rosuvastatin (Crestor) 20 MG tablet Take 1 tablet (20 mg) by mouth at bedtime. 90 tablet 3 Active Multiple Vitamin (Multivitamin) tablet Take 1 tablet by mouth in the morning. 90 tablet 3 Active Ferrous Sulfate (iron) 325 (65 Fe) MG tablet TAKE 1 TABLET BY MOUTH EVERY MORNING WITH FOOD 30 tablet Active cholecalciferol (Vitamin D-3) 25 MCG tabletIndications :Vitamin D deficiency Take 1 tablet (25 mcg) by mouth 2 times daily. 60 tablet Active docusate sodium (Colace) 100 MG capsule TAKE 2 CAPSULES BY MOUTH TWICE DAILY IN THE MORNING AND EVENING 120 capsule 3 Active naproxen (Naprosyn) 500 MG tablet Take 1 tablet with food twice daily as needed for pain 14 tablet Active gabapentin (Neurontin) 100 MG capsule 10/012024 Discontinued(T herapy completed) azithromycin (Zithromax Z-Alirio) 250 MG tablet Take 2 tabs day 1 and then 1 tab daily to finish 6 tablet 2024 Discontinued(T herapy completed) Acetaminophen Extra Strength 500 MG tabletIndications :Chronic bilateral low back pain without sciatica TAKE 1 TABLET BY MOUTH EVERY 8 HOURS NEEDED FOR PAIN (NICARAGUAN LABEL) 90 tablet 2024 Discontinued(R eorder (will [...] BY MOUTH EVERY EVENING 90 tablet 3 2024 Discontinued(R eorder (will [...] calms her down. I called [facility] pharmacy to attempt a med rec they instructed me that she is on med box and one week at a time prescriptions because she would break into her med boxes to take more Ambien or xanax. She is being seen by Izzy Perea at [facility]. He is aware of her behavior [...] received a call from the [facility] pharmacy instructing me that she was [...] Encounters Date Type Department Care Team Description 09/06/2025 1:30 PM EDT Office Visit [facility] MEDICINE [address] [place] [phone] Thea Warren FNP Urinary frequency (Primary Dx) 09/06/2025 Travel 09/05/2025 Telephone [facility] [address] [place] [phone] Nitin Echevarria MD Chart Prep 09/03/2025 Orders Only GENERIC EXTERNAL DATA DEPARTMENT Provider, Generic External Data 08/30/2025 Patient Outreach [facility] [address] [place] [address] Nitin Echevarria MD Pre-visit Planning ([facility] unable to reach) 08/24/2025 Telephone [facility]INE [address] [place] [phone] Nitin Echevarria MD Referral 08/24/2025 Telephone [facility] [address] [place] [phone] Nitin Echevarria MD Verbal Order 08/22/2025 Orders Only [facility] External Provider, [facility] 08/18/2025 Orders Only GENERIC EXTERNAL DATA DEPARTMENT Provider, Generic External Data 08/17/2025 Refill [facility] [address] [place] [phone] Nitin Echevarria MD 08/17/2025 Refill [facility] [address] [place] [phone] Miryam Riley NP Hypertension, unspecified type 08/15/2025 Refill [facility] [address] [place] [address] Nitin Echevarria MD Heartburn 08/14/2025 Refill [facility] [address] [place] [address] Nitin Echevarria MD Heartburn; Vitamin D deficiency 08/09/2025 11:15 AM EDT Office Visit [facility]INE [address] [place] [phone] Nitin Echevarria MD Generalized anxiety disorder with panic attacks (Primary Dx); Encounter for immunization; Chronic bilateral low back pain without sciatica 08/09/2025 Travel 08/01/2025 Refill [facility] [address] [place] [address] Nitin Echevarria MD Vitamin D deficiency 07/28/2025 Orders Only GENERIC EXTERNAL DATA DEPARTMENT Provider, Generic External Data 07/27/2025 Orders Only [facility] External Provider, [facility] 07/26/2025 Orders Only GENERIC EXTERNAL DATA DEPARTMENT Provider, Generic External Data 07/26/2025 Telephone [facility]INE [address] [place] [phone] Nitin Echevarria MD ER Follow-up 07/25/2025 Refill [facility] [address] [place] [address] Nitin Echevarria MD 07/25/2025 Refill [facility] [address] [place] [phone] Nitin Echevarria MD 07/18/2025 Refill [facility] [address] [place] [address] Miryam Riley NP 07/18/2025 Orders Only GENERIC EXTERNAL DATA DEPARTMENT Provider, Generic External Data 07/17/2025 Refill [facility] [address] [place] [phone] Nitin Echevarria MD Hypertension, unspecified type 07/07/2025 8:40 AM EDT Office Visit [facility] WALK-IN [address] [address] Zach Javier MD Acute conjunctivitis of left eye, unspecified acute conjunctivitis type (Primary Dx) 07/07/2025 Travel 07/01/2025 9:20 AM EDT Office Visit [facility] WALKIN [address] [address] Zach Javier MD Pedal edema (Primary Dx) 07/01/2025 Travel 06/28/2025 Refill [facility] [address] [place] [address] NameNitin MD 06/27/2025 Refill [facility] [address] [place], [place] [phone] Nitin Echevarria MD Vitamin D deficiency 06/19/2025 Refill [facility] WALK-IN CENTER [address] [place] [address] [phone] Nitin Echevarria MD Prediabetes 06/17/2025 9:30 AM EDT Office Visit [facility] MEDICINE [address] [place], [place] [phone] Thea Warren FNP Generalized anxiety disorder with panic attacks (Primary Dx); Essential (primary) hypertension 06/17/2025 Travel 06/17/2025 Telephone [facility]INE [address] [place], [place] [phone] NameNitin MD Med Refill (Pt is ) 06/08/2025 Refill [facility] [address] [place], [place] [phone] NameNitin MD from Last 3 Months Immunizations Immunization Administration [...] Mass Index 32.61 09/06/2025 1:13 PM EDT Plan of Treatment Upcoming Encounters Date Type Department Care Team (Late st Contact Info) Description 11/07/2025 10:00 AM EST Office Visit [facility] MED[facility]INE [address] [place] [phone] Name, MD Nitin [address] [place] [phone] Health Maintenance Due Date Last Done Comments COVID-19 Vaccine ( season) 2025 08/16/2024, 08/22/2022, 08/22/2022, Additional history exists Diabetes: Hemoglobin A1C 01/10/2026 025, 06/02/2023, 12/25/2022, Additional history exists Depression Screening 04/29/2026 04/29/2025, 04/29/20 25 SDOH Screening 08/09/2026 08/09/2025 Alcohol/Substance Use Screening 09/06/2026 09/06/2025 Tobacco Screening 09/06/2026 09/06/2025 Lipid Panel 09/19/2027 09/19/2022, 01/08, 04/12/2021 DTaP/Tdap/Td [...] Routine 09/06/2025 1:32 PM EDT Urinary frequency CT HEAD WO CONTRAST Routine 09/03/2025 2 :[address] CERVICAL SPINE WO CONTRAST Routine 09/03/2025 2:51 PM EDT HIGH SENSITIVITY TROPONIN I Routine 09/03/2025 2:08 PM EDT MAGNESIUM Routine 09/03/2025 2:08 PM EDT COMPREHENSIVE METABOLIC PANEL Routine 09/03/2025 2:08 PM EDT CBC WITH AUTO DIFFERENTIAL Routine 09/03/2025 2:08 PM EDT XR KNEE 4+ VIEWS LEFT Routine 08/22/2025 [...] Relevant to Health Maintenance Results * POCT Urinalysis (09/06/2025 1:32 PM [...] Media Lot # [id number] Lot# Expiration Date Urine (Urine, Random) 09/06/2025 1:32 PM EDT us Thea Warren [employer] POINT OF CARE TEST ENTER/EDIT ORDERABLES Final Result * CT Cervical Spine w/o Contrast (09/03/2025 2:51 PM EDT) Anatomical Region Laterality Modality Spine, C-spine Computed Tomogra phy 09/03/2025 2:51 PM EDT Narrative 09/03/2025 2:52 PM EDT [place] [address] CT Scan Report Signed Patient: Noreen Wing MR#: [id number] : 1945 Acct:[id number] Age/Sex: 79 / F ADM Date: 09/03/25 Loc: HO.ED Attending Dr: Ordering Physician: Dyana Andrews Date of Service: 09/03/25 Procedure(s): CT cervical spine wo IV con Accession Number(s): [id number] cc: Dyana Andrews; Name,Nitin PIKE Report Number: [id number]: Total DLP = 1246.00 mGy-cm Reason for [...] in OV> 09/03/251450 DD/ 50 TD/TT: 09/03/251450 Shipping Technician: Procedure Note Donotuseinterpreter, Image - 09/03/[address] [address] [address] Scan Report Signed Patient: Noreen WingMR#: [id number] : 1945cct:[id number] Age/Sex: 79 / FADM Date: 09/03/25 Loc: HO.ED Attending Dr: Ordering Physician: Dyana Andrews Date of Service: 09/03/25 Procedure(s): CT cervical spine wo IV con Accession Number(s): [id number] cc: Dyana Andrews; Name,Nitin PIKE Report Number: [id number]: Total DLP = 1246.00 mGy-cm Reason for [...] in OV> 09/03/251450 DD/ 50 TD/TT: 09/03/251450 Shipping Technician: [facility] External Provider IMG CT PROCEDURES Edited Result - Final * CT Head w/o Contrast (09/03/2025 2:51 PM EDT) Anatomical Region Laterality Modality Head, Neck Computed Tomogra phy 09/03/2025 2:51 PM EDT Narrative 09/03/2025 2:52 PM EDT [address] [address] [address] Scan Report Signed Patient: Noreen Wing MR#: [id number] : 1945 Acct:[id number] Age/Sex: 79 / F ADM Date: 09/03/25 Loc: HO.ED Attending Dr: Ordering Physician: Dyana Andrews Date of Service: 09/03/25 Procedure(s): CT head/brain wo IV con Accession Number(s): [id number] cc: Dyana Andrews; Name,Nitin PIKE Report Number: [id number]: Total DLP = 0.00 mGy-cm Reason for [...] Sherman MD in OV> 09/03/25 1452 DD/ 145 TD/TT: 09/03/25 145 Shipping Technician: Procedure Note Donotuseinterpreter, Image - 09/03/[address] [place] [address] [address] Scan Report Signed Patient: Noreen WingMR#: [id number] : 1945cct:[id number] Age/Sex: 79 / FADM Date: 09/03/25 Loc: HO.ED Attending Dr: Ordering Physician: Dyana Andrews Date of Service: 09/03/25 Procedure(s): CT head/brain wo IV con Accession Number(s): [id number] cc: Dyana Andrews; NameNitin MD Report Number: [id number]: Total DLP = 0.00 mGy-cm Reason for [...] in OV> 09/03/251451 DD/ 50 TD/TT: 09/03/251450 Shipping Technician: [facility] External Provider IMG CT PROCEDURES Edited Result - Final * High Sensitivity Troponin I (09/03/2025 2:08 PM EDT) Only the most recent of5 resultswithin the time period is included. Pathologist [facility] TROPONIN I HIGH SENSITIVITY <2.7 <3.5 - 17.0 ng/L [facility] Comment:The [place] high sens itivity Troponin-I results should beused in conjunction with other diagnostic information suchas ECG, clinical observations and information, and patientsymptoms to aid in the diagnosis of [place]. 09/03/2025 2:08 PM EDT 09/03/2025 2:12 PM EDT Generic External Data Provider LAB BLOOD ORDERAB LES Final Result [facility] [address] [place] [phone] * (ABNORMAL) CBC auto differential (09/03/2025 2:08 PM EDT) Only the most recent of4 resultswithin the time period is included. White Blood Count 7.5 4.8 - 10.8 X10*3/uL [facility] Red Blood Count 3.89(L) 4.20 - 5.50 X10*6/uL [facility] Hemoglobin 10.9(L) 12.0 - 16.0 g/dl [facility] Hematocrit 32.7(L) 37.0 - 47.0 % [facility] Mean Corpuscular Volume 84.1 80.0 - 98.0 fL [facility] Mean Corpuscular Hemoglobin 28.0 27.0 - 33.0 pg [facility] Mean Corpuscular HGB Conc 33.3 31.0 - 35.0 g/dl [facility] Red Cell Distribution Width 14.0 11.0 - 16.0 % [facility] Platelet Count 278 160 - 400 X10*3/uL [facility] Mean Platelet Volume 8.4(L) 9.4 - 12.3 fL [facility] Neutrophils Percent Auto 65.2 45 - 73 % [facility] Imm Gran Pct Auto 0.4 0.0 - 0.4 % [facility] Lymphocytes Percent Auto 21.8 20 - 40 % [facility] Monocytes Percent Auto 10.5 2 - 11 % [facility] Eosinophils Percent Auto 1.6 0 - 4 % [facility] Basophils Percent Auto 0.5 0 - 2 % [facility] NRBC Pct Auto 0.0 0.0 - 0.2 /100WBC [facility] Neutrophils Absolute Auto 4.9 2.0 - 8.3 x10*3/uL [facility] Imm Gran Abs Auto 0.03 0.00 - 0.03 X10*3/uL [facility] Lymphocytes Absolute Auto 1.6 1.2 - 4.9 X10*3/uL [facility] Monocytes Absolute Auto 0.8 0.1 - 1.2 X10*3/uL [facility] Eosinophils Absolute Auto 0.1 0.0 - 0.4 X10*3/uL [facility] Basophils Absolute Auto 0.0 0.0 - 0.2 X10*3/uL [facility] NRBC Abs Auto 0.000 0.0 - 0.012 X10*3/uL [facility] 09/03/2025 2:08 PM EDT 09/03/2025 2:12 PM EDT us Generic External Data Provider LAB BLOOD ORDERAB LES Final Result [facility] [address] [place] [phone] * Magnesium (09/03/2025 2:08 PM EDT) Pathologist [facility] Magnesium 2.0 1.6 - 2.6 mg/dL [facility] 09/03/2025 2:08 PM EDT 09/03/2025 2:12 PM EDT us Generic External Data Provider LAB BLOOD ORDERAB LES Final Result Performing Organization Address [facility] Co de Phone Number [facility] [address] [place] [address] [phone] * (ABNORMAL) Comprehensive Metabolic Panel (09/03/2025 2:08 PM EDT) Only the most recent of3 resultswithin the time period is included. [facility] Sodium 139 135 - 145 mmol/L [facility] Potassium 4.1 3.3 - 5.1 mmol/L [facility] Chloride 105 96 - 108 mmol/L [facility] Carbon Dioxide 28 22 - 29 mmol/L [facility] Anion Gap 10(L) 12 - 20 [facility] Urea Nitrogen (BUN) 24(H) 9 - 16 mg/dL [facility] Creatinine, Serum 1.04 0.5 - 1.4 mg/dL [facility] Creatinine Clr Calc Pharmacy 45.7 [facility] Comment:Provided height and weight: 162.56 cm,88.7 kg.eGFR (calculated from the MDRD study equation) and eCrCl(calculated from the Cockcroft-Gault equation) are based ondifferent parameters and may not yield comparable results.If eCrCl result is absurd, please check patient'sheight/weight. Estimated Glomerular Filt Rate 51 [facility] Comment:Chronic Kidney Disea se: Estimated GFR < 60 mL/min/1.78l0Bcewwe Kidney Disease: Estimated GFR < 15 mL/min/1.73m2 Glucose 105 60 - 115 mg/dL [facility] Calcium 8.9 8.4 - 10.2 mg/dL [facility] Bilirubin, Total 0.2 0.0 - 1.0 mg/dL [facility] Aspartate Amino Transferase 27 5 - 31 U/L [facility] Alanine Aminotransferase 18 0 - 31 U/L [facility] Total Protein 7.7 6.5 - 8.0 g/dL [facility] Albumin Level 4.0 3.5 - 5.0 g/dL [facility] Alkaline Phosphatase 81 39 - 117 U/L [facility] 09/03/2025 2:08 PM EDT 09/03/2025 2:12 PM EDT us Generic External Data Provider LAB BLOOD ORDERAB LES Final Result Performing Organization Address City/State/[facility] Co de Phone Number [facility] [address] [place] [phone] * XR Knee 4+ Views Left (08/22/2025 8:16 AM EDT) Anatomical Region Laterality Modality Lower Extremities, Knee Left Radiogra phic Imaging 08/22/2025 8:16 AM EDT Narrative 08/22/2025 8:17 AM EDT [address] [address] XRay Report Signed Patient: Noreen Wing MR#: [id number] : 1945 Acct:[id number] Age/Sex: 79 / F ADM Date: 08/22/25 Loc: HO.ED Attending Dr: Ordering Physician: Sarai Layton Date of Service: 08/22/25 Procedure(s): XR knee LT 4V Accession Number(s): [id number] cc: [facility]; Sarai Layton Reason for Exam: atraumatic [...] in OV> 08/22/25816 DD/ 5 TD/TT: 08/22/25815 Shipping Technician: Procedure Note Donotuseinterpreter, Image - 08/22/2025 [place] [address] XRay Report Signed Patient: Noreen WingMR#: [id number] : 1945cct:[id number] Age/Sex: 79 / FADM Date: 08/22/25 Loc: .ED Attending Dr: Ordering Physician: Sarai Layton Date of Service: 08/22/25 Procedure(s): XR knee LT 4V Accession Number(s): [id number] cc: [facility]; Sarai Layton Reason for Exam: atraumatic [...] in OV> 08/22/25816 DD/ 5 TD/TT: 08/22/25815 Shipping Technician: us [facility] External Provider IMG XR PROCEDURES Edited Result - Final * (ABNORMAL) Basic Metabolic Panel (08/18/2025 8:44 AM EDT) Only the most recent of2 resultswithin the time period is included. Sodium 137 135 - 145 mmol/L [facility] Potassium 4.6 3.3 - 5.1 mmol/L [facility] Chloride 101 96 - 108 mmol/L [facility] Carbon Dioxide 30(H) 22 - 29 mmol/L [facility] Anion Gap 11(L) 12 - 20 [facility] Urea Nitrogen (BUN) 19(H) 9 - 16 mg/dL [facility] Creatinine, Serum 0.94 0.5 - 1.4 mg/dL [facility] Estimated Glomerular Filt Rate 57 [facility] Comment:Chronic Kidney Disea se: Estimated GFR < 60 mL/min/1.23m4Xbaqmu Kidney Disease: Estimated GFR < 15 mL/min/1.73m2 Glucose 94 60 - 115 mg/dL [facility] Calcium 9.3 8.4 - 10.2 mg/dL [facility] 08/18/2025 8:44 AM EDT 08/18/2025 8:44 AM EDT Generic External Data Provider LAB BLOOD ORDERAB LES Final Result [facility] [address] [place] [phone] * Culture, Urine, Routine (07/28/2025 9:44 PM EDT) Only the most recent of3 resultswithin the time period is included. Urine Urine specimen obtained by clean catch procedure / Unknown 07/28/2025 9:44 PM EDT 07/28/2025 9:44 PM EDT Comment:UACC Narrative [facility] - 07/30/2025 9:57 AM EDT Urine Culture Report Result Urine Culture 10,000 to 50,000 cfu/ml Urine Culture Mixed bacterial jann characteristic of Urine Culture urogenital contamination. Specimen Source: Urine clean catch us Generic External Data Provider LAB MICROBIOLOGY - GENERAL ORDERABLES Final Result [facility] [address] [place] [phone] * CTA Chest PE Protocal (07/28/2025 8:35 PM EDT) Only the most recent of2 resultswithin the time period is included. Anatomical Region Laterality Modality Body, Chest Computed Tomogra phy 07/28/2025 8:35 PM EDT Narrative 07/28/2025 8:36 PM EDT [address] [address] [address] Scan Report Signed Patient: Noreen Wing MR#: [id number] : 1945 Acct:[id number] Age/Sex: 79 / F ADM Date: 07/28/25 Loc: HO.ED Attending Dr: Ordering Physician: Cuco Amador Date of Service: 07/28/25 Procedure(s): CT angio chest PE protocol Accession Number(s): [id number] cc: Cuco Amador; Name,Nitin PIKE Report Number: [id number]: Total DLP = 311.00 mGy-cm Reason for [...] in OV> 07/28/252034 DD/ 34 TD/TT: 07/28/252034 Shipping Technician: Procedure Note Ac, Image - 07/28/[address] [place] [address] [address] Scan Report Signed Patient: Noreen WingMR#: [id number] : 1945cct:[id number] Age/Sex: 79 / FADM Date: 07/28/25 Loc: .ED Attending Dr: Ordering Physician: Cuco Amador Date of Service: 07/28/25 Procedure(s): CT angio chest PE protocol Accession Number(s): [id number] cc: Cuco Amador; Name,Nitin PIKE Report Number: [id number]: Total DLP = 311.00 mGy-cm Reason for [...] in OV> 07/28/252034 DD/ 34 TD/TT: 07/28/252034 Shipping Technician: [facility] External Provider IMG CT PROCEDURES Final Result * (ABNORMAL) Urinalysis, Complete, with Reflex to Culture (07/28/2025 8:06 PM EDT) Only the most recent of3 resultswithin the time period is included. Color Urine Yellow [facility] Appearance Urine Clear [facility] PH 6.0 5.0 - 9.0 [facility] Glucose Urine UA Negative Negative mg/dL [facility] Urine Blood Negative Negative [facility] Specific [place] - Urine >=1.030(H) 1.005 - 1.025 [facility] Urine Protein Negative Neg-Trace mg/dL [facility] Urine Ketones Negative Negative mg/dL [facility] Nitrite Urine Negative Negative [facility] Leukocyte Esterase Urine Small (1+)(A) Negative [facility] RBC Urine 0-2 0 - 2 /HPF [facility] Urine WBC 6-10(A) 0 - 5 /HPF [facility] Urine Squamous Epithelial Cell 0-2 0 - 2 /HPF [facility] Urine Bacteria None Seen None Seen [facility] Hyaline Casts, Urine 0-2 0 - 2 /LPF [facility] 07/28/2025 8:06 PM EDT 07/28/2025 8:12 PM EDT Narrative [facility] - 07/28/2025 9:26 PM EDT [id number], Clean Catch us Generic External Data Provider LAB URINE ORDERAB LES Final Result [facility] [address] [place] [phone] * CT Abdomen Pelvis w/ Contrast (07/28/2025 8:01 PM EDT) Anatomical Region Laterality Modality Body, Pelvis, Abdomen Computed T omography 07/28/2025 8:01 PM EDT Narrative 07/28/2025 8:03 PM EDT [address] [address] [address] Scan Report Signed Patient: Noreen Wing MR#: [id number] : 1945 Acct:[id number] Age/Sex: 79 / F ADM Date: 07/28/25 Loc: HO.ED Attending Dr: Ordering Physician: Cuco Amador Date of Service: 07/28/25 Procedure(s): CT abdomen pelvis w IV con Accession Number(s): [id number] cc: Cuco Amador; Name,Nitin PIKE Report Number: [id number]: Total DLP = 539.64 mGy-cm Reason for [...] in OV> 07/28/252001 DD/ 00 TD/TT: 07/28/252000 Shipping Technician: Procedure Note Donotuseinterpreter, Image - 07/28/[address] [address] [address] Scan Report Signed Patient: Jennifer Wing#: [id number] : 1945cct:[id number] Age/Sex: 79 / FADM Date: 07/28/25 Loc: HO.ED Attending Dr: Ordering Physician: Cuco Amador Date of Service: 07/28/25 Procedure(s): CT abdomen pelvis w IV con Accession Number(s): [id number] cc: Cuco Amador; Name,Nitin Report Number: [id number]: Total DLP = 539.64 mGy-cm Reason for [...] in OV> 07/28/252001 DD/ 00 TD/TT: 07/28/252000 Shipping Technician: [facility] External Provider IMG CT PROCEDURES Final Result * Partial Thromboplastin Time, Activated (APTT) (07/28/2025 5:01 PM EDT) Partial Thromboplastin Time 31.4 26.7 - 34.1 SEC [facility] 07/28/2025 5:01 PM EDT 07/28/2025 5:05 PM EDT Generic External Data Provider LAB BLOOD ORDERAB LES Final Result Performing Organization Address [facility] Co de Phone Number [facility] [address] [place] [phone] * (ABNORMAL) Prothrombin Time-INR (07/28/2025 5:01 PM EDT) [facility] Prothrombin Time 14.3(H) 10.9 - 12.4 SEC [facility] INTERNATIONAL NORM RATIO 1.2(H) 0.9 - 1.1 [facility] Comment:INTERNATIONAL NORMAL IZED RATIO [...] ORDERAB LES Final Result Performing Organization Address [facility] Co de Phone Number [facility] [address] [place] [phone] * Lipase (07/28/2025 5:01 PM EDT) [facility] Lipase 31 8 - 78 U/L [facility] 07/28/2025 5:01 PM EDT 07/28/2025 5:05 PM EDT Generic External Data Provider LAB BLOOD ORDERAB LES Final Result Performing Organization Address [facility] Co de Phone Number [facility] [address] [place] [phone] * POCT HGB A1C (01/10/2025 11:02 [...] LDL-C. Jack SS et al. JITENDRA. 2013;310(19): 8496-3897 (http://education.[employer].com/faq/ATF466) Non-HDL Cholesterol 88 <130 mg/dL (calc) CONVERTED [...] Most Recently Relevant to Health Maintenance Insurance [facility] OPTIONS (HMO D-SNP) [place] [phone] Care Teams Director Of Materials Relationship Specialty Start Date End Date Name, MD Nitin [address] [place] [address] PCP - General Family Medicine 08/26/17 [facility] 09/01/24
--- OUTSIDE RECORDS SUMMARY | 2025-09-06 20:26 | XMS_ITS | Data Portability ---
Author Organization [employer] [facility], [facility] Address [address] [place] [address] Care Team Providers Care Huc Name Role Phone HIM CCA Primary Care [...] Last Updated DateTime 18 /min 74 /min 93908.9 28 g 98 % 98 % 100 [degF] 130/66 mm[Hg] Not Available [employer] Celi[employer] 15:33:18 Social History None recorded. Functional Status None recorded. Mental Status None recorded. Family History Nothing Reported. Medical History No medical history recorded. Gynecological HistoryNo gynecological history recorded. 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 She called today because she insists on having the catheter removed. It was removed by the cloth examiner with the understand ing that if she can't void, she will need to go the the ER. The patient agreed with this plan. [id number] Rohit Benton MD Main - [address] [address] 02/06/2024 15:33:16 02/09/2024 18:20:42 Chronic retention of urine [id number] R33.8 Has bunn catheter which was recently [...] Pinzon Member ID Guarantor Name 02/09/2024 1 [facility] - DOS ON OR AFTER 2023 - DUAL ELIGIBLE - LONGTERM OPTIONS AND ONE CARE (MEDICARE REPLACEMENT/ADV ANTAGE - HMO) Noreen Wing [id number] Noreen Wing Notes Date Note Type Note Provider Name and Address Organization Details Recorded Time 01/31/2024 text/html ROS as noted in the HPI CRC Nurse Triage Notes (Joana Dominique): Reason For Request: Bunn catheter malfunction/painful Chief Complaints: UTI/Pyelonephritis, Equipment-Related Allergies: No Known Comments: Kyrgyz speaking member who denies any PMH, denies [...] KAYE Verified name//address Epifanio Mcintyre MD [address] [facility],[address], [place], [address], [employer] 01/31/2024 19:05:57 02/06/2024 text/html ROS as noted in the HPI HPI: Member asked for HV tomorrow after 10 AM if possible. Treated at the [facility] ER today, for F/u leaking, stated is [...] son Jame Wing. Member is 78 y/o Kyrgyz speaking female who [facility] with her son. Member has multiple [...] her BH counselor weekly and Prescriber COMPUTER HELP DESK SPECIALIST [place] monthly if needed or every 2-3 months, .................... .................... .................... .................... .................... .................... .................... . CRC Nurse Triage Notes (Zafar Irving): Comments: Reviewed HPI .................... .................... .................... .................... .................... .................... .................... . Stream Control Officer Note From [facility] [place]: Pt sts doesn [...] Vitals stable. Urine clear and light yellow. [facility] contacted and advised pt to rest and advised to make sure she goes to appt Friday. Pt son was used as health services coordinator. Pt education on signs indicating the ER. Stream Control Officer Allergies: Clindamycin .................... .................... .................... .................... .................... .................... .................... . Disposition: Fulfilled Rohit Benton MD [address] [facility],[address], [place], [address], [employer] 02/06/2024 17:58:19 OBGyn Episode No OBEpisode recorded.
--- OUTSIDE RECORDS SUMMARY | 2025-09-06 20:26 | XMS_ITS | Encounter Summary ---
Author Organization [employer] Address [address] [facility] [address] [place] [address] Care Team Providers Care Global Logistics Analyst Name Role Phone Name, Nitin PIKE Primary Care Provider [phone] Reason for Visit * Reason Comments Med Refill Encounter Details Date Type Department Care Team (Late st Contact Info) Description 07/25/2025 Refill [facility] & PEDS [address] [place], [place] [phone] Name, MD Nitin [address] [place] [address] Social History Tobacco Use Types Packs/Day Years [...] [facility] MEDICINE [address] [place] [phone] NameNitin MD [address] [place] [address] documented as of this encounter Visit Diagnoses Not on filedocumented in this encounter Additional Health Concerns Assessment Noted Time PHQ-9 Depression Total Score: 3 04/29/20 25 9:41 AM EDT documented as of this encounter Care Teams Global Logistics Analyst Relationship Specialty Start Date End Date NameNitin MD [address] [place] [address] PCP - General Family Medicine 08/26/17 [facility] 09/01/24 documented as of this encounter
--- OUTSIDE RECORDS SUMMARY | 2025-09-06 20:26 | XMS_ITS | Encounter Summary ---
Author Organization [employer] Address [address] [facility] [address] [place] [address] Care Team Providers Care Turbogenerator Operator Name Role Phone Name, Nitin PIKE Primary Care Provider [phone] Reason for Visit * Reason Onset Date Comments Call Back Request 03/14/2025 Encounter Details Date Type Department Care Team ([facility] st Contact Info) Description 03/14/2025 Telephone [facility] MEDICINE [address] [place], [place] [phone] Name, MD Nitin [address] [place] [address] Call Back Request Social History Tobacco Use [...] EST Office Visit [facility] [address] [place] [address] Name, MD Nitin [address] [place] [address] documented as of this encounter Visit Diagnoses Not on filedocumented in this encounter Additional Health Concerns Assessment Noted Time PHQ-9 Depression Total Score: 6 02/13/20 9:14 AM EDT documented as of this encounter Care Teams Turbogenerator Operator Relationship Specialty Start Date End Date Name, MD Nitin [address] [place] [address] PCP - General Family Medicine 08/26/17 [facility] 09/01/24 documented as of this encounter
--- OUTSIDE RECORDS SUMMARY | 2025-09-06 20:26 | XMS_ITS | Encounter Summary ---
Author Organization [employer] Address [address] [facility] [address] [place] [address] Care Team Providers Care Farm Manager Name Role Phone Name, Nitin PIKE Primary Care Provider [phone] Reason for Visit * Reason Comments Med Refill Encounter Details Date Type Department Care Team (Late Contact Info) Description 03/02/2023 Refill [facility] MED[facility]INE [address] [place] [address] Karely Patiño MD [address] [place] [address] [phone] Social History Tobacco Use Types Packs/Day Years [...] 11/07/2025 10:00 AM EST Office Visit [facility]INE [address] [place] [address] Name, MD Nitin [address] [place] [address] documented as of this encounter Visit Diagnoses Not on filedocumented in this encounter Care Teams Farm Manager Relationship Specialty Start Date End Date Name, MD Nitin [address] [place] [address] PCP - General Family Medicine 08/26/17 [facility] 09/01/24 documented as of this encounter
--- OUTSIDE RECORDS SUMMARY | 2025-09-06 20:26 | XMS_ITS | Encounter Summary ---
Author Organization [employer] Address [address] [facility] [address] [place] [address] Care Team Providers Care Electronics Supervisor Name Role Phone Name, Nitin PIKE Primary Care Provider [phone] Reason for Visit * Reason Onset Date Comments FYI 01/21/2024 ER Follow-up 01/21/2024 Encounter Details Date Type Department Care Team ([facility] st Contact Info) Description 01/21/2024 Telephone [facility] MEDICINE [address] [place], [place] [phone] Name, MD Nitin [address] [place] [address] FYI; ER Follow-up Social History Tobacco Use [...] - 01/21/2024 1:54 PM EDT Message from [facility] ED noted. [facility] note sent to medical records. PCP does not rx Trazodone. Pt to f/u with psych prescriber. Pt is scheduled for f/u with pcp 02/13/24. * Telephone Encounter - Janette Huitron - 01/21/2024 9:45 AM EDT Tc from nata with [facility] ED calling in regards to pt. States pt was seen today for anxiety and is requesting trazodone. Will discharge pt with no medication change. Would also like to advise provider, pt was seen at [facility] [place] 01[place]17 for anxiety/insomnia as well documented in this encounter Plan of Treatment Upcoming Encounters Date Type Department Care Team (Late st Contact Info) Description 11/07/2025 10:00 AM EST Office Visit [facility] MEDICINE [address] [place] [address] Name, MD Nitin [address] [place] [address] documented as of this encounter Visit Diagnoses Not on filedocumented in this encounter Additional Health Concerns Assessment Noted Time PHQ-9 Depression Total Score: 12 023 9:37 AM EDT documented as of this encounter Care Teams Electronics Supervisor Relationship Specialty Start Date End Date Name, MD Nitin [address] [place] [address] PCP - General Family Medicine 08/26/17 [facility] 09/01/24 documented as of this encounter
== END 2025-09-06 18:44 | disposition home or self-care (01) ==
LOC: HO.HHCLNP 18:43
PROVIDERS: Visit Provider Nurse Practitioner Family
DX: R35.0 Frequency of micturition (principal)
CPT/HCPCS: 87086; 87147

== ENCOUNTER 2025-09-09 14:13 | Outpatient (REF) | payer OTHER, SELFPAY ==
--- OUTSIDE RECORDS SUMMARY | 2025-09-11 14:16 | XMS_ITS | Clinical Summary ---
Author Organization [facility] Address [address] [place] [address] Phone Care Team Providers Care Sheet Rock Installer Name Role Phone Physician, No Pcp Primary [...] [facility] Comment:Calculation based on the [...] 09/22/2024 3:15 AM [facility] Alkaline Phosphatase 77 42 - 121 unit/L LAB CHEMISTRY METHOD 09/22/2024 3:15 AM [facility] Total Protein 8.0 6.0 - 8.0 g/dL LAB CHEMISTRY METHOD 09/22/2024 3:15 AM EST [facility] Albumin 4.2 3.2 - 5.0 g/dL LAB CHEMISTRY METHOD 09/22/2024 3:15 AM EST [facility] Total Bilirubin 0.4 0.0 - 1.4 mg/dL LAB CHEMISTRY METHOD 09/22/2024 3:15 AM EST [facility] Blood Venous blood specimen / Unknown Venipuncture / Unknown 09/22/2024 2:28 AM EST 09/22/2024 2:31 AM EST Paul RUIZ LAB BLOOD ORDERABLES Final Resul t [facility] [address] [place] [address], from Last 3 Months or Most Recently Relevant to Health Maintenance Insurance [facility] MEDICARE Member Subscriber Plan / Payer (Ef fective 2021-Present) Name:Noreen Wing Relation to Subscriber:Self Name:Noreen Wing Payer ID:[id number] Group ID:[id number] Type:Not on file Address: [address] [place] [phone] Care Teams Sheet Rock Installer Relationship Specialty Start Date End Date Physician, No Pcp PCP - General 09/22/24
--- OUTSIDE RECORDS SUMMARY | 2025-09-11 14:16 | XMS_ITS | Data Portability ---
Author Organization [employer] [facility], [facility] Hospital[facility] Medical [facility] Address [address] [place] [address] Care Team Providers Care Software Quality Assurance Engineer Name Role Phone HIM CCA Primary Care [...] Last Updated DateTime 18 /min 74 /min 02193.9 28 g 98 % 98 % 100 [degF] 130/66 mm[Hg] Not Available [email or web address] 15:33:18 Social History None recorded. Functional Status None recorded. Mental Status None recorded. Family History Nothing Reported. Medical History No medical history recorded. Gynecological HistoryNo gynecological history recorded. Obstetrics History GPAL:G 0 P 0 0 0 0 Past Encounters Encounter ID Performer Location Encounter Start Date Encounter Closed Date Diagnosis/Indication Diagnosis SNOMED-CT Code Diagnosis ICD10 Code Diagnosis IMO Codes Diagnosis Note [id number] Epifanio Mcintyre MD [facility] - [address] [address] 01/31/2024 18:59:06 02/01/2024 21:09:19 Urethral stenosis [id number] N35.92 This 78-year-ol d female recently had a Bunn catheter placed because she had difficulty voiding due to apparent urethral stenosis. She called today because she insists on having the catheter removed. It was removed by the saddle cutter with the understand ing that if she can't void, she will need to go the the ER. The patient agreed with this plan. [id number] Rohit Benton MD Main - [address] [address] 02/06/2024 15:33:16 02/09/2024 18:20:42 Chronic retention of urine [id number] R33.8 Has bunn catheter which was recently [...] Pinzon Member ID Guarantor Name 02/09/2024 1 [facility] - DOS ON OR AFTER 2023 - DUAL ELIGIBLE - [facility] OPTIONS AND ONE CARE (MEDICARE REPLACEMENT/ADV ANTAGE - HMO) Noreen Wing [id number] Noreen Wing Notes Date Note Type Note Provider Name and Address Organization Details Recorded Time 01/31/2024 text/html ROS as noted in the HPI CRC Nurse Triage Notes (Joana Dominique): Reason For Request: Bunn catheter malfunction/painful Chief Complaints: UTI/Pyelonephritis, Equipment-Related Allergies: No Known Comments: Algerian speaking member who denies any PMH, denies [...] KAYE Verified name//address Epifanio Mcintyre MD [address] [facility],[address], [place], [address], [employer] 01/31/2024 19:05:57 02/06/2024 text/html ROS as noted in the HPI HPI: Member asked for HV tomorrow after 10 AM if possible. Treated at the [facility] ER today, for F/u leaking, stated is [...] son Jame Wing. Member is 78 y/o Algerian speaking female who [place] [facility] [place] [facility] with [...] sees her BH counselor weekly and Prescriber MARKETING PERFORMANCE ANALYST [place] monthly if needed or every 2-3 months, .................... .................... .................... .................... .................... .................... .................... . CRC Nurse Triage Notes (Zafar Irving): Comments: Reviewed HPI .................... .................... .................... .................... .................... .................... .................... . Stock Broker Note From [facility] [place]: Pt sts doesn [...] appt Friday. Pt son was used as combat systems officer. Pt education on signs indicating the ER. Stock Broker Allergies: Clindamycin .................... .................... .................... .................... .................... .................... .................... . Disposition: Fulfilled Rohit Benton MD [address] [facility],[address], [place], [address], [employer] 02/06/2024 17:58:19 OBGyn Episode No OBEpisode recorded.
== END 2025-09-09 14:14 | disposition home or self-care (01) ==
LOC: HO.HOSX 14:13
PROVIDERS: Visit Provider Physician Assistant
DX: Z13.89 Encounter for screening for other disorder (principal)

== ENCOUNTER 2025-09-17 06:29 | Emergency (ER) | payer OTHER, SELFPAY ==
[2025-09-17 06:34] VITALS: BP 126/79; BP 156/84; PULSE 94; RESP 18; TEMP 36.9; O2SAT 97; O2SAT 99; BMI 32.0
--- OUTSIDE RECORDS SUMMARY | 2025-09-17 06:49 | XMS_ITS | Encounter Summary ---
Author Organization [employer] Address [address] [facility] [address] [place] [address] Care Team Providers Care Surveyor Geodetic Name Role Phone Name, Nitin PIKE Primary Care Provider [phone] Reason for Visit * Reason Onset Date Comments Med Refill 11/08/2024 Encounter Details Date Type Department Care Team ([facility] st Contact Info) Description 11/08/2024 Telephone [facility] MEDICINE [address] [place], [place] [phone] Name, MD Nitin [address] [place] [address] Med Refill Social History Tobacco Use Types [...] 5 MG tablet To be sent to: [facility] [place], [place] - [address] [facility] documented in this encounter Plan of Treatment Upcoming Encounters Date Type Department Care Team ([facility] st Contact Info) Description 11/07/2025 10:00 AM EST Office Visit [facility] [address] [place] [address] Name, MD Nitin [address] [place] [address] documented as of this encounter Visit Diagnoses Not on filedocumented in this encounter Additional Health Concerns Assessment Noted Time PHQ-9 Depression Total Score: 6 02/13/20 24 9:14 AM EDT documented as of this encounter Care Teams Surveyor Geodetic Relationship Specialty Start Date End Date Name, MD Nitin [address] [place] [address] PCP - General Family Medicine 08/26/17 [facility] 09/01/24 documented as of this encounter
--- OUTSIDE RECORDS SUMMARY | 2025-09-17 06:50 | XMS_ITS | Encounter Summary ---
Author Organization [employer] Address [address] [facility] [address] [place] [address] Care Team Providers Care Patient Relations Specialist Name Role Phone Name, Nitin PIKE Primary Care Provider [phone] Reason for Visit * Reason Onset Date Comments FYI 01/21/2024 ER Follow-up 01/21/2024 Encounter Details Date Type Department Care Team ([facility] st Contact Info) Description 01/21/2024 Telephone [facility] MEDICINE [address] [place], [place] [phone] Name, MD Nitin [address] [place] [address] FYI; ER Follow-up Social History Tobacco Use [...] 01/21/2024 1:54 PM EDT Message from [facility] ED noted. [facility] note sent to medical records. PCP does not rx Trazodone. Pt to f/u with psych prescriber. Pt is scheduled for f/u with pcp 02/13/24. * Telephone Encounter - Janette Huitron - 01/21/2024 9:45 AM EDT Tc from nata with [facility] ED calling in regards to pt. States pt was seen today for anxiety and is requesting trazodone. Will discharge pt with no medication change. Would also like to advise provider, pt was seen at [facility] on 01/17 for anxiety/insomnia as well documented in this encounter Plan of Treatment Upcoming Encounters Date Type Department Care Team (Late st Contact Info) Description 11/07/2025 10:00 AM EST Office Visit [facility] MEDICINE [address] [place] [address] Name, MD Nitin [address] [place] [address] documented as of this encounter Visit Diagnoses Not on filedocumented in this encounter Additional Health Concerns Assessment Noted Time PHQ-9 Depression Total Score: 12 023 9:37 AM EDT documented as of this encounter Care Teams Patient Relations Specialist Relationship Specialty Start Date End Date Name, MD Nitin [address] [place] [address] PCP - General Family Medicine 08/26/17 [facility] 09/01/24 documented as of this encounter
--- OUTSIDE RECORDS SUMMARY | 2025-09-17 06:50 | XMS_ITS | Encounter Summary ---
Author Organization [employer] Address [address] [facility] [address] [place] [address] Care Team Providers Care Forklift Wheel Loader Name Role Phone Name, Nitin PIKE Primary Care Provider [phone] Encounter Details Date Type Department Care Team ([facility] Contact Info) Description 01/06/2023 Orders Only [facility] MED & PEDS [address] [place], [place] [phone] Lisha Kelly LPN Social History Tobacco Use [...] Description 11/07/2025 10:00 AM EST Office Visit [facility] MEDICINE [address] [place] [address] NameNitin MD [address] [place] [address] documented as of this encounter Visit Diagnoses Not on filedocumented in this encounter Care Teams Forklift Wheel Loader Relationship Specialty Start Date End Date NameNitin MD [address] [place] [address] PCP - General Family Medicine 08/26/17 [facility] 09/01/24 documented as of this encounter
--- OUTSIDE RECORDS SUMMARY | 2025-09-17 06:50 | XMS_ITS | Clinical Summary ---
Author Organization [employer] Address [address] [place] [address] [address] [place] [address] Care Team Providers Care Methods Examiner Name Role Phone Name, Nitin PIKE Primary Care Provider [phone] Allergies Active Allergy Reactions Criticality Noted Date [...] reaction(s): unknown Trimethoprim Hives High 02/24/2023 Medications neomycin-polymyxin -hydrocortisone (Cortisporin) otic solution 01/23/20 23 Active zolpidem (Ambien) 5 MG tablet Take 5 mg by mouth if needed at bedtime. 01/28/20 23 Active loratadine (Claritin) 10 MG tablet TAKE 1 TABLET BY MOUTH EVERY DAY 90 tablet 1 03/03/20 23 Active ofloxacin (Floxin) 0.3 % otic solutionIndication s:Recurrent acute serous otitis media of left ear INSTILL 5 DROPS INTO THE LEFT EAR 2 TIMES A DAY FOR 7 DAYS 10 mL 08/01/20 23 Active Blood Pressure Monitoring (3 Series BP Monitor/Upper Arm) device 1 Units in the morning. 1 each 02/11/20 24 Active mirtazapine (Remeron) 45 MG tabletIndications: Depressive disorder TAKE 1 TABLET BY MOUTH AT BEDTIME 30 tablet 2 03/10/20 24 Active hydrocortisone 2.5 % creamIndications:R ed Apply topically 2 times daily. 30 g [...] (twelve) hours. 30 mL 2 07/27/20 24 Active Bisacodyl EC 5 MG EC [...] mouth in the morning. 10/25/20 24 Active linaCLOtide (Linzess) 145 MCG capsuleIndications :Chronic constipation Do not crush or chew.TAKE 1 CAPSULE BY MOUTH EVERY DAY BEFORE BREAKFAST, DO NOT BREAK, CRUSH, DISSOLVE OR CHEW 30 capsule 02/03/20 25 Active meclizine (Antivert) 25 MG tabletIndications: Vertigo TAKE 1 TABLET BY MOUTH EVERY DAY NEEDED 30 tablet 04/21/20 25 Active fluticasone (Flonase Allergy Relief) 50 MCG/ACT nasal sprayIndications:A llergic rhinitis, unspecified seasonality, unspecified trigger SPRAY 1 TO 2 SPRAYS INTO EACH NOSTRIL EVERY DAY 16 g 1 04/21/20 25 Active mometasone (Elocon) 0.1 % ointment Apply topically Once per day. 45 g 04/29/20 25 026 Active clonazePAM (KlonoPIN) 0.5 MG tablet Take 1 tablet (0.5 mg) by mouth 3 times daily for 7 days. 21 tablet 06/17/20 25 Active Ketotifen Fumarate 0.035 % solutionIndication s:Acute conjunctivitis of left eye, unspecified acute conjunctivitis type Administer 1 drop into affected eye(s) if needed in the morning and at bedtime (allergies). 10 mL 07/07/20 25 Active amLODIPine (Norvasc) 10 MG tabletIndications: Hypertension, unspecified type TAKE 1 TABLET BY MOUTH EVERY MORNING 90 tablet 1 07/18/20 25 Active hydrOXYzine pamoate (Vistaril) 50 MG capsuleIndications :Generalized anxiety disorder with panic attacks TAKE 1 CAPSULE BY MOUTH EVERY 8 HOURS NEEDED FOR ANXIETY 30 capsule 08/09/20 25 Active Acetaminophen Extra Strength 500 MG tabletIndications: Chronic bilateral low back pain without sciatica TAKE 1 TABLET BY MOUTH EVERY 8 HOURS NEEDED FOR PAIN (ECUADOREAN LABEL) 90 tablet 08/09/20 25 Active omeprazole (PriLOSEC) [address] capsuleIndications :Heartburn TAKE 1 CAPSULE BY MOUTH EVERY MORNING 1 HOUR BEFORE BREAKFAST 90 capsule 1 08/16/20 25 Active rosuvastatin (Crestor) 20 MG tablet Take 1 tablet (20 mg) by mouth at bedtime. 90 tablet 3 08/16/20 25 Active Multiple Vitamin (Multivitamin) tablet Take 1 tablet by mouth in the morning. 90 tablet 3 08/16/20 25 Active Ferrous Sulfate (iron) 325 (65 Fe) MG tablet TAKE 1 TABLET BY MOUTH EVERY MORNING WITH FOOD 30 tablet 08/16/20 25 Active cholecalciferol (Vitamin D-3) 25 MCG tabletIndications: Vitamin D deficiency Take 1 tablet (25 mcg) by mouth 2 times daily. 60 tablet 08/16/20 25 Active docusate sodium (Colace) 100 MG capsule TAKE 2 CAPSULES BY MOUTH TWICE DAILY IN THE MORNING AND EVENING 120 capsule 3 08/18/20 25 Active naproxen (Naprosyn) 500 MG tabletIndications: Acute pain of left knee Take 1 tablet with food twice daily as needed for pain 14 tablet 09/06/20 25 Active cefuroxime (Ceftin) 500 MG tabletIndications: Acute cystitis without hematuria Take 1 tablet (500 mg) by mouth 2 times daily for 7 days. 14 tablet 09/09/20 25 025 Active Problems Problem Noted Date Diagnosed Date Acute cystitis without hematuria 09/09/2025 Viral pharyngitis 11/12/2024 Assessment & Plan (11/12/2024 9:40 AM EST): Symptomatic measures Rest Major neurocognitive disorder ([facility]) 11/02/20 Acute otitis media 04/22/2024 Diarrhea 02/12/2024 [...] precautions advised Stage 3a chronic kidney disease ([facility]/HCC) 2022 Headache 01/02/2023 Overview (12/18/2023): Last Assessment [...] because it calms her down. I called [facility] pharmacy to attempt a med rec they instructed me that she is on med box and one week at a time prescriptions because she would break into her med boxes to take more Ambien or xanax. She is being seen by Izzy Perea at [facility]. He is aware of her behavior and [...] left I received a call from the [facility] pharmacy instructing me that she [...] Encounters Date Type Department Care Team Description 09/09/2025 Telephone [facility] [address] [place] [phone] Thea Warren FNP Results 09/06/2025 1:30 PM EDT Office Visit [facility] [address] [place] [address] Thea Warren FNP Acute pain of left knee (Primary Dx); Urinary frequency; Acute cystitis without hematuria 09/06/2025 Orders Only [facility] [address] [place] [address] Thea Warren FNP 09/06/2025 Travel 09/05/2025 Telephone [facility] [address] [place] [address] Nitin Echevarria MD Chart Prep 09/03/2025 Orders Only GENERIC EXTERNAL DATA DEPARTMENT Provider, Generic External Data 08/30/2025 Patient Outreach [facility] [address] [place] [address] Nitni Echevarria MD Pre-visit Planning ([facility] unable to reach) 08/24/2025 Telephone [facility] [address] [place] [address] Nitin Echevarria MD Referral 08/24/2025 Telephone [facility] [address] [place] [address] Nitin Echevarria MD Verbal Order 08/22/2025 Orders Only [facility] External Provider, [facility] 08/18/2025 Orders Only GENERIC EXTERNAL DATA DEPARTMENT Provider, Generic External Data 08/17/2025 Refill [facility] [address] [place] [address] Nitin Echevarria MD 08/17/2025 Refill [facility] [address] [place] [address] Miryam Riley NP Hypertension, unspecified type 08/15/2025 Refill [facility] [address] [place] [address] Nitin Echevarria MD Heartburn 08/14/2025 Refill [facility] [address] [place] [address] Nitin Echevarria MD Heartburn; Vitamin D deficiency 08/09/2025 11:15 AM EDT Office Visit [facility] [address] [place] [address] Nitin Echevarria MD Generalized anxiety disorder with panic attacks (Primary Dx); Encounter for immunization; Chronic bilateral low back pain without sciatica 08/09/2025 Travel 08/01/2025 Refill [facility] [address] [place] [address] Nitin Echevarria MD Vitamin D deficiency 07/28/2025 Orders Only GENERIC EXTERNAL DATA DEPARTMENT Provider, Generic External Data 07/27/2025 Orders Only [facility] External Provider, [facility] 07/26/2025 Orders Only GENERIC EXTERNAL DATA DEPARTMENT Provider, Generic External Data 07/26/2025 Telephone [facility] [address] [place] [address] Nitin Echevarria MD ER Follow-up 07/25/2025 Refill [facility] [address] [place] [address] Nitin Echevarria MD 07/25/2025 Refill [facility] [address] [place] [address] Nitin Echevarria MD 07/18/2025 Refill [facility] [address] [place] [address] Miryam Riley NP 07/18/2025 Orders Only GENERIC EXTERNAL DATA DEPARTMENT Provider, Generic External Data 07/17/2025 Refill [facility] [address] [place] [address] Nitin Echevarria MD Hypertension, unspecified type 07/07/2025 8:40 AM EDT Office Visit [facility] [address] [address] Zach Javier MD Acute conjunctivitis of left eye, unspecified acute conjunctivitis type (Primary Dx) 07/07/2025 Travel 07/01/2025 9:20 AM EDT [facility] [address] [address] Zach Javier MD Pedal edema (Primary Dx) 07/01/2025 Travel 06/28/2025 Refill [facility] [address] [place] [address] Nitin Echevarria MD 06/27/2025 Refill [facility] [address] [place] [address] Name, MD Nitin Vitamin D deficiency 06/19/2025 Refill [facility] [address] [place] [address] Name, MD Nitin Prediabetes 06/17/2025 9:30 AM EDT Office Visit [facility] [address] [place] [address] Thea Warren FNP Generalized anxiety disorder with panic attacks (Primary Dx); Essential (primary) hypertension 06/17/2025 Travel 06/17/2025 Telephone [facility] [address] [place], [place] [phone] Name, MD Nitin Med Refill (Pt is ) from Last 3 Months Immunizations Immunization Administration [...] Description 11/07/2025 10:00 AM EST Office Visit [facility] [address] [place] [address] Name, MD Nitin [address] [place] [address] Health Maintenance Due Date Last Done Comments COVID-19 Vaccine ( season) 2025 08/16/2024, 08/22/2022, 08/22/2022, Additional history exists Diabetes: Hemoglobin A1C 01/10/20262 025, 06/02/2023, 12/25/2022, Additional history exists Depression Screening 04/29/2026 04/29/2025, 04/29/20 SDOH Screening 08/09/2026 08/09/2025 Alcohol/Substance Use Screening [...] Procedure Name Priority Date/Time Associated Diagnosis Comments CULTURE, URINE, ROUTINE Routine 09/06/2025 2:19 PM EDT POCT URINALYSIS DIPSTICK Routine 09/06/2025 1:32 PM [...] Recently Relevant to Health Maintenance Results * Culture, Urine, Routine (09/06/2025 2:19 PM EDT) Only the most recent of4 resultswithin the time period is included. Urine Urine specimen obtained by clean catch procedure / Unknown 09/06/2025 2:19 PM EDT 09/06/2025 6:45 PM EDT Comment:[facility] - 09/08/2025 3:37 PM EDT Strep agalactiae (Grp B) Quant 10,000 to 50,000 cfu/mL Susc N/A Susceptibility not routinely performed on this isolate. Specimen Source: Urine clean catch Thea Warren [facility] MICROBIOLOGY - GENERAL ORD ERABLES Final Result [facility] [address] [place] [phone] * POCT Urinalysis (09/06/2025 1:32 PM EDT) [...] Urine (Urine, Random) 09/06/2025 1:32 PM EDT [facility] POINT [facility] C[facility] TEST ENTER/EDIT ORDERABLES Final Result * CT Cervical Spine w/o Contrast (09/03/2025 2:51 PM EDT) Anatomical Region Laterality Modality Spine, C-spine Computed Tomogra phy 09/03/2025 2:51 PM EDT Narrative 09/03/2025 2:52 PM EDT [address] [address] [address] Scan Report Signed Patient: Noreen Wing MR#: [id number] : 1945 Acct:[id number] Age/Sex: 79 / F ADM Date: 09/03/25 Loc: HO.ED Attending Dr: Ordering Physician: Dyana Andrews Date of Service: 09/03/25 Procedure(s): CT cervical spine wo IV con Accession Number(s): [id number] cc: Dyana Andrews; Name,Nitin PIKE Report Number: [id number]: Total DLP = 1246.00 mGy-cm Reason for [...] in OV> 09/03/251450 DD/ 50 TD/TT: 09/03/251450 Corporate Tutor: Procedure Note Donotuseinterpreter, Image - 09/03/[address] [place] [address] [address] Scan Report Signed Patient: Noreen WingMR#: [id number] : 1945cct:[id number] Age/Sex: 79 / FADM Date: 09/03/25 Loc: HO.ED Attending Dr: Ordering Physician: Dyana Andrews Date of Service: 09/03/25 Procedure(s): CT cervical spine wo IV con Accession Number(s): [id number] cc: Dyana Andrews; Name,Nitin PIKE Report Number: [id number]: Total DLP = 1246.00 mGy-cm Reason for [...] in OV> 09/03/251450 DD/ 50 TD/TT: 09/03/251450 Corporate Tutor: us [facility] External Provider IMG CT PROCEDURES Edited Result - Final * CT Head w/o Contrast (09/03/2025 2:51 PM EDT) Anatomical Region Laterality Modality Head, Neck Computed Tomogra phy 09/03/2025 2:51 PM EDT Narrative 09/03/2025 2:52 PM EDT [address] [address] [address] Scan Report Signed Patient: Noreen Wing MR#: [id number] : 1945 Acct:[id number] Age/Sex: 79 / F ADM Date: 09/03/25 Loc: HO.ED Attending Dr: Ordering Physician: Dyana Andrews Date of Service: 09/03/25 Procedure(s): CT head/brain wo IV con Accession Number(s): [id number] cc: Dyana Andrews; Name,Nitin PIKE Report Number: [id number]: Total DLP = 0.00 mGy-cm Reason for [...] OV> 09/03/25 1452 DD/ 1451 TD/TT: 09/03/25 145 Corporate Tutor: Procedure Note Donotuseinterpreter, Image - 09/03/[address] [address] [address] Scan Report Signed Patient: Noreen WingMR#: [id number] : 1945cct:[id number] Age/Sex: 79 / FADM Date: 09/03/25 Loc: HO.ED Attending Dr: Ordering Physician: Dyana Andrews Date of Service: 09/03/25 Procedure(s): CT head/brain wo IV con Accession Number(s): [id number] cc: Dyana Andrews; Name,Nitin PIKE Report Number: [id number]: Total DLP = 0.00 mGy-cm Reason for [...] in OV> 09/03/25 1452 DD/ 145 TD/TT: 09/03/251450 Corporate Tutor: [facility] External Provider IMG CT PROCEDURES Edited Result - Final * High Sensitivity Troponin I (09/03/2025 2:08 PM EDT) Only the most recent of5 resultswithin the time period is included. TROPONIN I HIGH SENSITIVITY <2.7 <3.5 - 17.0 ng/L [facility] Comment:The Mckeon high sens itivity Troponin-I results should beused in conjunction with other diagnostic information suchas ECG, clinical observations and information, and patientsymptoms to aid in the diagnosis of [place]. 09/03/2025 2:08 PM EDT 09/03/2025 2:12 PM EDT Generic External Data Provider LAB BLOOD ORDERAB LES Final Result [facility] [address] [place] [address] [phone] * (ABNORMAL) CBC auto differential (09/03/2025 2:08 PM EDT) Only the most recent of4 resultswithin the time period is included. White Blood Count 7.5 4.8 - 10.8 X10*3/uL [facility] Red Blood Count 3.89(L) 4.20 - 5.50 X10*6/uL [facility] Hemoglobin 10.9(L) 12.0 - 16.0 g/dl [facility] Hematocrit 32.7(L) 37.0 - 47.0 % [facility] Mean Corpuscular Volume 84.1 80.0 - 98.0 fL [facility] Mean Corpuscular Hemoglobin 28.0 27.0 - 33.0 pg [facility] Mean Corpuscular HGB Conc 33.3 31.0 - 35.0 g/dl [facility] Red Cell Distribution Width 14.0 11.0 - 16.0 % [facility] Platelet Count 278 160 - 400 X10*3/uL [facility] Mean Platelet Volume 8.4(L) 9.4 - 12.3 fL [facility] Neutrophils Percent Auto 65.2 45 - 73 % [facility] Imm Gran Pct Auto 0.4 0.0 - 0.4 % [facility] Lymphocytes Percent Auto 21.8 20 - 40 % [facility] Monocytes Percent Auto 10.5 2 - 11 % [facility] Eosinophils Percent Auto 1.6 0 - 4 % [facility] Basophils Percent Auto 0.5 0 - 2 % [facility] NRBC Pct Auto 0.0 0.0 - 0.2 /100WBC [facility] Neutrophils Absolute Auto 4.9 2.0 - 8.3 x10*3/uL [facility] Imm Gran Abs Auto 0.03 0.00 - 0.03 X10*3/uL [facility] Lymphocytes Absolute Auto 1.6 1.2 - 4.9 X10*3/uL [facility] Monocytes Absolute Auto 0.8 0.1 - 1.2 X10*3/uL [facility] Eosinophils Absolute Auto 0.1 0.0 - 0.4 X10*3/uL [facility] Basophils Absolute Auto 0.0 0.0 - 0.2 X10*3/uL [facility] NRBC Abs Auto 0.000 0.0 - 0.012 X10*3/uL [facility] 09/03/2025 2:08 PM EDT 09/03/2025 2:12 PM EDT Generic External Data Provider LAB BLOOD ORDERAB LES Final Result Performing Organization Address City/[facility]/ZIP Co de Phone Number [facility] [address] [place] [phone] * Magnesium (09/03/2025 2:08 PM EDT) Pathologist [facility] Magnesium 2.0 1.6 - 2.6 mg/dL [facility] 09/03/2025 2:08 PM EDT 09/03/2025 2:12 PM EDT Generic External Data Provider LAB BLOOD ORDERAB LES Final Result Performing Organization Address City/[facility]/ZIP Co de Phone Number [facility] [address] [place] [phone] * (ABNORMAL) Comprehensive Metabolic Panel (09/03/2025 2:08 PM EDT) Only the most recent of3 resultswithin the time period is included. Sodium 139 135 - 145 mmol/L [facility] Potassium 4.1 3.3 - 5.1 mmol/L [facility] Chloride 105 96 - 108 mmol/L [facility] Carbon Dioxide 28 22 - 29 mmol/L [facility] Anion Gap 10(L) 12 - 20 [facility] Urea Nitrogen (BUN) 24(H) 9 - 16 mg/dL [facility] Creatinine, Serum 1.04 0.5 - 1.4 mg/dL [facility] Creatinine Clr Calc Pharmacy 45.7 [facility] Comment:Provided height and weight: 162.56 cm,88.7 kg.eGFR (calculated from the MDRD study equation) and eCrCl(calculated from the Cockcroft-Gault equation) are based ondifferent parameters and may not yield comparable results.If eCrCl result is absurd, please check patient'sheight/weight. Estimated Glomerular Filt Rate 51 [facility] Comment:Chronic Kidney Disea se: Estimated GFR < 60 mL/min/1.98f0Atrbua Kidney Disease: Estimated GFR < 15 mL/min/1.73m2 Glucose 105 60 - 115 mg/dL [facility] Calcium 8.9 8.4 - 10.2 mg/dL [facility] Bilirubin, Total 0.2 0.0 - 1.0 mg/dL [facility] Aspartate Amino Transferase 27 5 - 31 U/L [facility] Alanine Aminotransferase 18 0 - 31 U/L [facility] Total Protein 7.7 6.5 - 8.0 g/dL [facility] Albumin Level 4.0 3.5 - 5.0 g/dL [facility] Alkaline Phosphatase 81 39 - 117 U/L [facility] 09/03/2025 2:08 PM EDT 09/03/2025 2:12 PM EDT us Generic External Data Provider LAB BLOOD ORDERAB LES Final Result [facility] [address] [place] [phone] * XR Knee 4+ Views Left (08/22/2025 8:16 AM EDT) Anatomical Region Laterality Modality Lower Extremities, Knee Left Radiogra phic Imaging 08/22/2025 8:16 AM EDT Narrative 08/22/2025 8:17 AM EDT [address] [address] XRay Report Signed Patient: Noreen Wing MR#: [id number] : 1945 Acct:[id number] Age/Sex: 79 / F ADM Date: 08/22/25 Loc: HO.ED Attending Dr: Ordering Physician: Sarai Layton Date of Service: 08/22/25 Procedure(s): XR knee LT 4V Accession Number(s): [id number] cc: [facility]; Sarai Layton Reason for Exam: atraumatic [...] in OV> 08/22/25816 DD/ 5 TD/TT: 08/22/25815 Corporate Tutor: Procedure Note Donotuseinterpreter, Image - 08/22/[address] [address] XRay Report Signed Patient: Noreen WingMR#: [id number] : 1945cct:[id number] Age/Sex: 79 / FADM Date: 08/22/25 Loc: .ED Attending Dr: Ordering Physician: Sarai Layton Date of Service: 08/22/25 Procedure(s): XR knee LT 4V Accession Number(s): [id number] cc: [facility]; Sarai Layton Reason for Exam: atraumatic [...] in OV> 08/22/25816 DD/ 5 TD/TT: 08/22/25815 Corporate Tutor: [facility] External Provider IMG XR PROCEDURES Edited Result - Final * (ABNORMAL) Basic Metabolic Panel (08/18/2025 8:44 AM EDT) Only the most recent of2 resultswithin the time period is included. Sodium 137 135 - 145 mmol/L [facility] Potassium 4.6 3.3 - 5.1 mmol/L [facility] Chloride 101 96 - 108 mmol/L [facility] Carbon Dioxide 30(H) 22 - 29 mmol/L [facility] Anion Gap 11(L) 12 - 20 [facility] Urea Nitrogen (BUN) 19(H) 9 - 16 mg/dL [facility] Creatinine, Serum 0.94 0.5 - 1.4 mg/dL [facility] Estimated Glomerular Filt Rate 57 [facility] Comment:Chronic Kidney Disea se: Estimated GFR < 60 mL/min/1.17w9Fzwopl Kidney Disease: Estimated GFR < 15 mL/min/1.73m2 Glucose 94 60 - 115 mg/dL [facility] Calcium 9.3 8.4 - 10.2 mg/dL [facility] 08/18/2025 8:44 AM EDT 08/18/2025 8:44 AM EDT us Generic External Data Provider LAB BLOOD ORDERAB LES Final Result [facility] [address] [place] [phone] * CTA Chest PE Protocal (07/28/2025 8:35 PM EDT) Only the most recent of2 resultswithin the time period is included. Anatomical Region Laterality Modality Body, Chest Computed Tomogra phy 07/28/2025 8:35 PM EDT Narrative 07/28/2025 8:36 PM EDT [address] [address] [address] Scan Report Signed Patient: Noreen Wing MR#: [id number] : 1945 Acct:[id number] Age/Sex: 79 / F ADM Date: 07/28/25 Loc: HO.ED Attending Dr: Ordering Physician: Cuco Amador Date of Service: 07/28/25 Procedure(s): CT angio chest PE protocol Accession Number(s): [id number] cc: Cuco Amador; Name,Nitin PIKE Report Number: [id number]: Total DLP = 311.00 mGy-cm Reason for [...] in OV> 07/28/252034 DD/ 34 TD/TT: 07/28/252034 Corporate Tutor: Procedure Note Donotuseinterpreter, Image - 07/28/[address] [address] [address] Scan Report Signed Patient: Jennifer Wing#: [id number] : 1945cct:[id number] Age/Sex: 79 / FADM Date: 07/28/25 Loc: HO.ED Attending Dr: Ordering Physician: Cuco Amador Date of Service: 07/28/25 Procedure(s): CT angio chest PE protocol Accession Number(s): [id number] cc: Cuco Amador; Name,Nitin PIKE Report Number: [id number]: Total DLP = 311.00 mGy-cm Reason for [...] in OV> 07/28/252034 DD/ 34 TD/TT: 07/28/252034 Corporate Tutor: [facility] External Provider IMG CT PROCEDURES Final Result * (ABNORMAL) Urinalysis, Complete, with Reflex to Culture (07/28/2025 8:06 PM EDT) Only the most recent of3 resultswithin the time period is included. Color Urine Yellow [facility] Appearance Urine Clear [facility] PH 6.0 5.0 - 9.0 [facility] Glucose Urine UA Negative Negative mg/dL [facility] Urine Blood Negative Negative [facility] Specific [place] - Urine >=1.030(H) 1.005 - 1.025 [facility] Urine Protein Negative Neg-Trace mg/dL [facility] Urine Ketones Negative Negative mg/dL [facility] Nitrite Urine Negative Negative [facility] Leukocyte Esterase Urine Small (1+)(A) Negative [facility] RBC Urine 0-2 0 - 2 /HPF [facility] Urine WBC 6-10(A) 0 - 5 /HPF [facility] Urine Squamous Epithelial Cell 0-2 0 - 2 /HPF [facility] Urine Bacteria None Seen None Seen [facility] Hyaline Casts, Urine 0-2 0 - 2 /LPF [facility] 07/28/2025 8:06 PM EDT 07/28/2025 8:12 PM EDT Narrative [facility] - 07/28/2025 9:26 PM EDT [id number], Clean C[employer] us Generic External Data Provider LAB URINE ORDERAB LES Final Result [facility] [facility] [address] [place] [address] [phone] * CT Abdomen Pelvis w/ Contrast (07/28/2025 8:01 PM EDT) Anatomical Region Laterality Modality Body, Pelvis, Abdomen Computed T omography 07/28/2025 8:01 PM EDT Narrative 07/28/2025 8:03 PM EDT [address] [address] [address] Scan Report Signed Patient: Noreen Wing MR#: [id number] : 1945 Acct:[id number] Age/Sex: 79 / F ADM Date: 07/28/25 Loc: HO.ED Attending Dr: Ordering Physician: Cuco Amador Date of Service: 07/28/25 Procedure(s): CT abdomen pelvis w IV con Accession Number(s): [id number] cc: Cuco Amador; Name,Nitin PIKE Report Number: [id number]: Total DLP = 539.64 mGy-cm Reason for [...] in OV> 07/28/252001 DD/ 00 TD/TT: 07/28/252000 Corporate Tutor: Procedure Note Donotuseinterpreter, Image - 07/28/[address] [place] [address] [address] Scan Report Signed Patient: Noreen WingMR#: [id number] : 3Acct:[id number] Age/Sex: 79 / FADM Date: 07/28/25 Loc: HO.ED Attending Dr: Ordering Physician: Cuco Amador Date of Service: 07/28/25 Procedure(s): CT abdomen pelvis w IV con Accession Number(s): [id number] cc: Cuco Amador; Name,Nitin PIKE Report Number: [id number]: Total DLP = 539.64 mGy-cm Reason for [...] in OV> 07/28/252001 DD/ 00 TD/TT: 07/28/252000 Corporate Tutor: [facility] External Provider IMG CT PROCEDURES Final Result * Partial Thromboplastin Time, Activated (APTT) (07/28/2025 5:01 PM EDT) Partial Thromboplastin Time 31.4 26.7 - 34.1 [facility] 07/28/2025 5:01 PM EDT 07/28/2025 5:05 PM EDT Generic External Data Provider LAB BLOOD ORDERAB LES Final Result [facility] [address] [place] [phone] * (ABNORMAL) Prothrombin Time-INR (07/28/2025 5:01 PM EDT) [facility] Prothrombin Time 14.3(H) 10.9 - 12.4 [facility] INTERNATIONAL NORM RATIO 1.2(H) 0.9 - 1.1 [facility] Comment:INTERNATIONAL NORMAL IZED RATIO (INR) [...] ORDERAB LES Final Result [facility] [address] [place] [phone] * Lipase (07/28/2025 5:01 PM EDT) [facility] Lipase 31 8 - 78 U/L [facility] 07/28/2025 5:01 PM EDT 07/28/2025 5:05 PM EDT [employer] External Data Provider LAB BLOOD ORDERAB LES Final Result [facility] [address] [place] [phone] * POCT HGB A1C (01/10/2025 11:02 AM EST) [facility] Hemoglobin A1C 5.1 4.0 - 6.0 % QC Media Lot # [id number] Lot# Expiration Date [id number] Blood 01/10/2025 11:0 2 AM EST Nitin [...] LDL-C. Jack SS et al. JITENDRA. 2013;310(19): 8533-9912 (http://education.[employer].Asuragen/faq/LCO452) Non-HDL Cholesterol 88 <130 mg/dL (calc) CONVERTED [...] Most Recently Relevant to Health Maintenance Insurance [id number] LONGTERM [facility] (O D-SNP) [place] [id number] Care Teams Methods Examiner Relationship Specialty Start Date End Date Name, MD Nitin [address] [place], [place] [phone] PCP - General Family Medicine 08/26/17 [facility] 09/01/24
--- OUTSIDE RECORDS SUMMARY | 2025-09-17 06:50 | XMS_ITS | Clinical Summary ---
Author Organization [facility] Address [address] [place] [address] Phone Care Team Providers Care Bore Mill Operator Name Role Phone Physician, No Pcp [...] mmol/L LAB CHEMISTRY METHOD 09/22/2024 3:15 AM [facility] Potassium 4.6 3.5 - 5.5 mmol/L LAB CHEMISTRY METHOD 09/22/2024 3:15 AM [facility] Chloride 98 96 - 110 mmol/L LAB CHEMISTRY METHOD 09/22/2024 3:15 AM [facility] CO2 28 21 - 32 mmol/L LAB CHEMISTRY METHOD 09/22/2024 3:15 AM [facility] Anion Gap 6 3 - 11 LAB CHEMISTRY METHOD 09/22/2024 3:15 AM [facility] Glucose 119(H) 70 - 100 mg/dL LAB CHEMISTRY METHOD 09/22/2024 3:15 AM [facility] BUN 25 5 - 25 mg/dL LAB CHEMISTRY METHOD 09/22/2024 3:15 AM [facility] Creatinine 1.18(H) 0.50 - 1.10 mg/dL LAB CHEMISTRY METHOD 09/22/2024 3:15 AM [facility] eGFR 47(L) >=60 mL/min/1. 73m2 LAB CHEMISTRY METHOD 09/22/2024 3:15 AM [facility] Comment:Calculation based on the Chronic Kidney Disease Epidemiology Collaboration (CKD-EPI) equation refit without adjustment for race. BUN/Creatinine Ratio 21.2 LAB CHEMISTRY METHOD 09/22/2024 3:15 AM [facility] Calcium 9.3 8.5 - 10.5 mg/dL LAB CHEMISTRY METHOD 09/22/2024 3:15 AM [facility] AST (SGOT) 37 10 - 42 unit/L LAB CHEMISTRY METHOD 09/22/2024 3:15 AM [facility] ALT (SGPT) 25 10 - 60 unit/L LAB CHEMISTRY METHOD 09/22/2024 3:15 AM [facility] Alkaline Phosphatase 77 42 - 121 unit/L LAB CHEMISTRY METHOD 09/22/2024 3:15 AM [facility] Total Protein 8.0 6.0 - 8.0 g/dL LAB CHEMISTRY METHOD 09/22/2024 3:[address] [facility] Albumin 4.2 3.2 - 5.0 g/dL LAB CHEMISTRY METHOD 09/22/2024 3:[address] [facility] Total Bilirubin 0.4 0.0 - 1.4 mg/dL LAB CHEMISTRY METHOD 09/22/2024 3:[address] [facility] Blood Venous blood specimen / Unknown Venipuncture / Unknown 09/22/2024 2:28 AM EST 09/22/2024 2:31 AM EST Paul RUIZ LAB BLOOD ORDERABLES Final Resul t [facility] [address] [place] [address], from Last 3 Months or Most Recently Relevant to Health Maintenance Insurance [facility] MEDIC[facility] Member Subscriber Plan / Payer (Ef fective 2021-Present) Name:Noreen Wing Relation to Subscriber:Self Name:Noreen Wing Payer ID:[id number] Group ID:[id number] Type:Not on file Address: [place] [address] [place] [address] Care Teams Bore Mill Operator Relationship Specialty Start Date End Date Physician, No Pcp PCP - General 09/22/24
--- OUTSIDE RECORDS SUMMARY | 2025-09-17 06:50 | XMS_ITS | Encounter Summary ---
Author Organization [employer] Address 75 [facility] [address] [place] [address] Care Team Providers Care Electrical Maintenance Mechanic Name Role Phone Name, Nitin PIKE Primary Care Provider [phone] Reason for Visit * Reason Onset Date Comments Hospital Follow-up 10/20/2024 Encounter Details Date Type Department Care Team ([facility] Contact Info) Description 10/20/2024 Telephone [facility] [address] [place], [place] [phone] Name, MD Nitin [address] [place] [address] Hospital Follow-up Social History Tobacco Use Types [...] pt requesting a HDF appt. [facility] [facility] Date of admission: 10/17 Discharge date: 10/19 Diagnosed: High Blood Pressure and Fever Contact pt at [phone] *Send message to Zenia Clinical Care Coordinators documented in this encounter Plan of Treatment Upcoming Encounters Date Type Department Care Team (Late st Contact Info) Description 11/07/2025 10:00 AM EST Office Visit [facility]INE [address] [place] [address] Name, MD Nitin [address] [place] [address] documented as of this encounter Visit Diagnoses Not on filedocumented in this encounter Additional Health Concerns Assessment Noted Time PHQ-9 Depression Total Score: 6 02/13/20 24 9:14 AM EDT documented as of this encounter Care Teams Electrical Maintenance Mechanic Relationship Specialty Start Date End Date Name, MD Nitin [address] [place] [address] PCP - General Family Medicine 08/26/17 [facility] 09/01/24 documented as of this encounter
--- OUTSIDE RECORDS SUMMARY | 2025-09-17 06:50 | XMS_ITS | Encounter Summary ---
Author Organization [employer] Address 75 [facility] 7[address] [place] [address] Care Team Providers Care Art Installer Name Role Phone Name, Nitin PIKE Primary Care Provider [phone] Reason for Visit * Reason Comments Med Refill Encounter Details Date Type Department Care Team (Late Contact Info) Description 03/02/2023 Refill [facility] [address] [place] [address] Karely Patiño MD [address] [place] [address] [phone] Social History Tobacco Use Types Packs/Day Years [...] 10:00 AM EST Office Visit [facility] [address] [place] [address] Name, MD Nitin [address] [place] [address] documented as of this encounter Visit Diagnoses Not on filedocumented in this encounter Care Teams Art Installer Relationship Specialty Start Date End Date Name, MD Nitin [address] [place] [address] PCP - General Family Medicine 08/26/17 [facility] 09/01/24 documented as of this encounter
--- OUTSIDE RECORDS SUMMARY | 2025-09-17 06:50 | XMS_ITS | Encounter Summary ---
Author Organization [employer] Address 75 [facility] 7[address] [place] [address] Care Team Providers Care Medical Record Librarian Name Role Phone Name, Nitin PIKE Primary Care Provider [phone] Reason for Visit * Reason Onset Date Comments Verbal Orders 01/02/2024 Encounter Details Date Type Department Care Team ([facility] st Contact Info) Description 01/02/2024 Telephone [facility] [address] [place], [place] [phone] Name, MD Nitin [address] [place] [address] Verbal Orders Social History Tobacco Use Types [...] No answer. LVM to call back on [phone]. * Telephone Encounter - Melany Santos RN - 01/06/2024 10:25 AM EST Please review and advise for below request. * Telephone Encounter - Deana Bazzi - 01/02/2024 3:44 PM EST Tc from [facility] with S requesting verbal orders for discharge pt from Occupational Therapy, due to pt refuses services, please contact [facility] at [phone]. documented in this encounter Plan of Treatment Upcoming Encounters Date Type Department Care Team (Late st Contact Info) Description 11/07/2025 10:00 AM EST Office Visit [facility] [address] [place] [address] Name, MD Nitin [address] [place] [address] documented as of this encounter Visit Diagnoses Not on filedocumented in this encounter Additional Health Concerns Assessment Noted Time PHQ-9 Depression Total Score: 12 023 9:37 AM EDT documented as of this encounter Care Teams Medical Record Librarian Relationship Specialty Start Date End Date Name, MD Nitin [address] [place] [address] PCP - General Family Medicine 08/26/17 [facility] 09/01/24 documented as of this encounter
--- OUTSIDE RECORDS SUMMARY | 2025-09-17 06:50 | XMS_ITS | Encounter Summary ---
Author Organization [employer] Address 75 [facility] 7[address] [place] [address] Care Team Providers Care Wine Steward/Stewardess Name Role Phone Name, Nitin PIKE Primary Care Provider [phone] Encounter Details Date Type Department Care Team ([facility] Contact Info) Description 08/08/2023 Telephone [facility] [address] [place] [address] [phone] Name, MD Nitin [address] [place] [address] [phone] Social History Tobacco Use Types Packs/Day Years [...] 11/07/2025 10:00 AM EST Office Visit [facility] [address] [place] [address] [phone] Name, MD Nitin [address] [place] [address] [phone] documented as of this encounter Visit Diagnoses Not on filedocumented in this encounter Additional Health Concerns Assessment Noted Time PHQ-9 Depression Total Score: 12 023 9:37 AM EDT documented as of this encounter Care Teams Wine Steward/Stewardess Relationship Specialty Start Date End Date Name, MD Nitin [address] [place] [address] PCP - General Family Medicine 08/26/17 [facility] 09/01/24 documented as of this encounter
--- OUTSIDE RECORDS SUMMARY | 2025-09-17 06:50 | XMS_ITS | Encounter Summary ---
Author Organization [employer] Address 75 [facility] 7[address] [place] [address] Care Team Providers Care Press Department Manager Name Role Phone Name, Nitin PIKE Primary Care Provider [phone] Encounter Details Date Type Department Care Team ([facility] st Contact Info) Description 05/26/2023 Orders Only [facility] [address] [place] [address] Noreen Fox MD [address] [place] [address] Social History Tobacco Use Types Packs/Day Years [...] Upcoming Encounters Date Type Department Care Team ([facility] st Contact Info) Description 11/07/2025 10:00 AM EST Office Visit [facility] [address] [place] [address] Name, MD Nitin [address] [place] [address] documented as of this encounter Visit Diagnoses Not on filedocumented in this encounter Care Teams Press Department Manager Relationship Specialty Start Date End Date Name, [place] [address] PCP - General Family Medicine 08/26/17 [facility] 09/01/24 documented as of this encounter
--- OUTSIDE RECORDS SUMMARY | 2025-09-17 06:50 | XMS_ITS | Encounter Summary ---
Author Organization [employer] Address 75 [facility] 7t [place] [address] Care Team Providers Care Car Sander Name Role Phone Name, Nitin PIKE Primary Care Provider [phone] Reason for Visit * Reason Onset Date Comments ER Follow-up 05/04/2024 Encounter Details Date Type Department Care Team ([facility] Contact Info) Description 05/04/2024 Telephone [facility] MEDICINE [address] [place], [place] [phone] Name, MD Nitin [address] [place] [address] ER Follow-up Social History Tobacco Use Types [...] 11:01 AM EDT T/C to pt. Through Workboard id - [id number] for below message, No answer. LVM to call back [phone] . * Telephone Encounter - Adithya Solorzano - 05/04/2024 9:35 AM EDT Noreen with [facility] calling to report ED visit on : Date: 04/28 Hospital: [facility] Seen for: UTI, Nausea, Rash. Noreen advised will be forwarding message to team nurses. Please contact pt at [phone]. documented in this encounter Plan of Treatment Upcoming Encounters Date Type Department Care Team (Late st Contact Info) Description 11/07/2025 10:00 AM EST Office Visit [facility]INE [address] [place] [address] Name, MD Nitin [address] [place] [address] documented as of this encounter Visit Diagnoses Not on filedocumented in this encounter Additional Health Concerns Assessment Noted Time PHQ-9 Depression Total Score: 6 02/13/20 9:14 AM EDT documented as of this encounter Care Teams Car Sander Relationship Specialty Start Date End Date Name, MD Nitin [address] [place] [address] PCP - General Family Medicine 08/26/17 [facility] 09/01/24 documented as of this encounter
--- OUTSIDE RECORDS SUMMARY | 2025-09-17 06:50 | XMS_ITS | Encounter Summary ---
Author Organization [employer] Address 75 [facility] 7[address] [place] [address] Care Team Providers Care Hard Hat Diver Name Role Phone Name, Nitin PIKE Primary Care Provider [phone] Encounter Details Date Type Department Care Team ([facility] Contact Info) Description 12/17/2022 Orders Only [facility] [address] [place], [place] [phone] Lisha Kelly LPN Social History Tobacco Use [...] EST Office Visit [facility] [address] [place] [address] Nitin Echevarria MD [address] [place] [address] documented as of this encounter Visit Diagnoses Not on filedocumented in this encounter Care Teams Hard Hat Diver Relationship Specialty Start Date End Date NameNitin MD [address] [place] [address] PCP - General Family Medicine 08/26/17 [facility] 09/01/24 documented as of this encounter
--- OUTSIDE RECORDS SUMMARY | 2025-09-17 06:50 | XMS_ITS | Encounter Summary ---
Author Organization [employer] Address 75 [facility] 7[address] [place] [address] Care Team Providers Care Linseed Oil Order Filler Name Role Phone Name, Nitin PIKE Primary Care Provider [phone] Reason for Visit * Reason Comments Med Refill Encounter Details Date Type Department Care Team (Late st Contact Info) Description 01/09/2025 Refill [facility] [address] [place], [place] [phone] Name, MD Nitin [address] [place] [address] Hypertension, unspecified type Social History Tobacco Use [...] Description 11/07/2025 10:00 AM EST Office Visit [facility] [address] [place] [address] NameNitin MD [address] [place] [address] documented as of this encounter Visit Diagnoses Diagnosis Hypertension, unspecified type documented in this encounter Additional Health Concerns Assessment Noted Time PHQ-9 Depression Total Score: 6 02/13/20 9:14 AM EDT documented as of this encounter Care Teams Linseed Oil Order Filler Relationship Specialty Start Date End Date NameNitin MD [address] [place] [address] PCP - General Family Medicine 08/26/17 [facility] 09/01/24 documented as of this encounter
--- OUTSIDE RECORDS SUMMARY | 2025-09-17 06:50 | XMS_ITS | Encounter Summary ---
Author Organization [employer] Address 75 [facility] 7t [place] [address] Care Team Providers Care Air Quality Specialist Name Role Phone Name, Nitin PIKE Primary Care Provider [phone] Reason for Visit * Reason Onset Date Comments Durable Medical Equipment 12/09/2023 Encounter Details Date Type Department Care Team ([facility] st Contact Info) Description 12/09/2023 Telephone [facility] MEDICINE [address] [place], [place] [phone] Name, MD Nitin [address] [place], [place] [phone] Durable Medical Equipment Social History Tobacco Use [...] 10:11 AM EST DME rx faxed to [facility] as requested. RN will consult with S nurse and provide referral. * Telephone Encounter - Fozia Jacob RN - 12/09/2023 4:58 PM EST Call returned to [facility] at [facility] [phone] ext. [phone]. [facility] states that [facility] attempted to provide PT at home but pt refused. [facility] pt is requesting outpatient PT. [facility] pt is seeing a counselor more regularly and has agreed to VNA referral. Reports pt has had 3 falls in the past 2 months. [facility] states [facility] no longer has visiting nurses. [facility] recommends [facility] or [facility] for VNA referral. [facility] also requesting DME rx for rollator walker and a straight cane. Requests that DME rx be faxed to [phone]. Advised requests will be sent to pcp. * Telephone Encounter - Adithya Solorzano - 12/09/2023 4:25 PM EST Tc from [facility] requesting DME: Rollator walker . documented in this encounter Plan of Treatment Upcoming Encounters Date Type Department Care Team (Late st Contact Info) Description 11/07/2025 10:00 AM EST Office Visit [facility] MED[facility] [address] [place] [address] Name, MD Nitin [address] [place] [address] documented as of this encounter Visit Diagnoses Not on filedocumented in this encounter Additional Health Concerns Assessment Noted Time PHQ-9 Depression Total Score: 12 023 9:37 AM EDT documented as of this encounter Care Teams Air Quality Specialist Relationship Specialty Start Date End Date Name, MD Nitin [facility] [place] [address] PCP - General Family Medicine 08/26/17 [facility] 09/01/24 documented as of this encounter
--- OUTSIDE RECORDS SUMMARY | 2025-09-17 06:50 | XMS_ITS | Encounter Summary ---
Author Organization [employer] Address 75 [facility] [address] [place] [address] Care Team Providers Care Family Physician Name Role Phone Name, Nitin PIKE Primary Care Provider Reason for Visit * Reason Comments Med Refill Encounter Details Date Type Department Care Team ([facility] st Contact Info) Description 06/28/2024 Refill [facility] [address] [place] [address] Mel Anguiano FNP [address] [place] [address] Social History Tobacco Use Types Packs/Day Years [...] Office Visit [facility] MEDICINE [address] [place] [address] Name, MD Nitin [address] [place] [address] documented as of this encounter Visit Diagnoses Not on filedocumented in this encounter Additional Health Concerns Assessment Noted Time PHQ-9 Depression Total Score: 6 02/13/20 24 9:14 AM EDT documented as of this encounter Care Teams Family Physician Relationship Specialty Start Date End Date Name, MD Nitin [address] [place] [address] PCP - General Family Medicine 08/26/17 [facility] 09/01/24 documented as of this encounter
--- OUTSIDE RECORDS SUMMARY | 2025-09-17 06:50 | XMS_ITS | Encounter Summary ---
Author Organization [employer] Address 75 [facility] 7[address] [place] [address] Care Team Providers Care Client Server Developer Name Role Phone Name, Nitin PIKE Primary Care Provider [phone] Reason for Visit * Reason Onset Date Comments Results 08/29/2023 Encounter Details Date Type Department Care Team ([facility] st Contact Info) Description 08/29/2023 Telephone [facility] MEDICINE [address] [place], [place] [phone] Name, MD Nitin [address] [place] [address] Results Social History Tobacco Use Types Packs/Day [...] 09/01/2023 11:51 AM EDT Pt evaluated in [facility] today and is scheduled with pcp 09/03/23. * Telephone Encounter - Janette Huitron - 08/29/2023 4:06 PM EDT Tc from pt requesting a call in regards to urine results. Please contact pt at [phone] (Dominican) documented in this encounter Plan of Treatment Upcoming Encounters Date Type Department Care Team (Late st Contact Info) Description 11/07/2025 10:00 AM EST Office Visit [facility] MEDICINE [address] [place] [address] Name, MD Nitin [address] [place] [address] documented as of this encounter Visit Diagnoses Not on filedocumented in this encounter Additional Health Concerns Assessment Noted Time PHQ-9 Depression Total Score: 12 023 9:37 AM EDT documented as of this encounter Care Teams Client Server Developer Relationship Specialty Start Date End Date Name, MD Nitin [address] [place] [address] PCP - General Family Medicine 08/26/17 [facility] 09/01/24 documented as of this encounter
--- OUTSIDE RECORDS SUMMARY | 2025-09-17 06:50 | XMS_ITS | Encounter Summary ---
Author Organization [employer] Address 75 [facility] 7[address] [place] [address] Care Team Providers Care Property Insurance Claims Examiner Name Role Phone Name, Nitin PIKE Primary Care Provider [phone] Reason for Visit * Reason Comments Med Refill Encounter Details Date Type Department Care Team (Late st Contact Info) Description 08/17/2025 Refill [facility] MEDICINE [address] [place], [place] [phone] Miryam Riley NP [address] [place] [address] Hypertension, unspecified type Social History Tobacco Use [...] Office Visit [facility] MEDICINE [address] [place] [address] NameNitin MD [address] [place] [address] documented as of this encounter Visit Diagnoses Diagnosis Hypertension, unspecified type documented in this encounter Additional Health Concerns Assessment Noted Time PHQ-9 Depression Total Score: 3 04/29/20 25 9:41 AM EDT documented as of this encounter Care Teams Property Insurance Claims Examiner Relationship Specialty Start Date End Date Name, MD Nitin [address] [place] [address] PCP - General Family Medicine 08/26/17 [facility] 09/01/24 documented as of this encounter
--- OUTSIDE RECORDS SUMMARY | 2025-09-17 06:50 | XMS_ITS | Encounter Summary ---
Author Organization [employer] Address 75 [facility] [address] [place] [address] Care Team Providers Care Tray Line Supervisor Name Role Phone Name, Nitin PIKE Primary Care Provider [phone] Reason for Visit * Reason Onset Date Comments Order(s) 12/09/2023 Encounter Details Date Type Department Care Team ([facility] Contact Info) Description 12/09/2023 Telephone [facility] MED[facility] [address] [place], [place] [phone] Name, MD Nitin [address] [place], [place] [phone] Order(s) Social History Tobacco Use Types Packs/Day [...] orders. If any questions please contact Noreen [phone]. documented in this encounter Plan of Treatment Upcoming Encounters Date Type Department Care Team (Late st Contact Info) Description 11/07/2025 10:00 AM EST Office Visit [facility] [address] [place] [address] Name, MD Nitin [address] [place] [address] documented as of this encounter Visit Diagnoses Not on filedocumented in this encounter Additional Health Concerns Assessment Noted Time PHQ-9 Depression Total Score: 12 023 9:37 AM EDT documented as of this encounter Care Teams Tray Line Supervisor Relationship Specialty Start Date End Date Name, MD Nitin [address] [place] [address] PCP - General Family Medicine 08/26/17 [facility] 09/01/24 documented as of this encounter
--- OUTSIDE RECORDS SUMMARY | 2025-09-17 06:50 | XMS_ITS | Encounter Summary ---
Author Organization [employer] Address 75 [facility] [address] [place] [address] Care Team Providers Care Display Trimmer Name Role Phone Name, Nitin PIKE Primary Care Provider [phone] Reason for Visit * Reason Comments Med Refill Encounter Details Date Type Department Care Team (Late st Contact Info) Description 04/20/2025 Refill [facility] [address] [place] [address] Zechariah Cheung MD 230 [place] [address] Allergic rhinitis, unspecified seasonality, unspecified trigger Social [...] Description 11/07/2025 10:00 AM EST Office Visit [facility] [address] [place] [address] NameNitin MD 230 [place] [address] documented as of this encounter Visit Diagnoses Diagnosis Allergic rhinitis, unspecified seasonality, unspecified trigger documented in this encounter Additional Health Concerns Assessment Noted Time PHQ-9 Depression Total Score: 6 02/13/20 9:14 AM EDT documented as of this encounter Care Teams Display Trimmer Relationship Specialty Start Date End Date Nitin Echevarria MD [address] [place] [address] PCP - General Family Medicine 08/26/17 [facility] 09/01/24 documented as of this encounter
--- OUTSIDE RECORDS SUMMARY | 2025-09-17 06:50 | XMS_ITS | Encounter Summary ---
Author Organization [employer] Address 75 [facility] [address] [place] [address] Care Team Providers Care Carpenter Apprentice Name Role Phone Name, Nitin PIKE Primary Care Provider [phone] Reason for Visit * Reason Onset Date Comments triage 12/18/2022 Encounter Details Date Type Department Care Team ([facility] st Contact Info) Description 12/18/2022 Telephone [facility] MEDICINE 230 [place], [place] [phone] Name, MD Nitin 230 [place] [address] triage Social History Tobacco Use Types Packs/Day [...] 12/18/2022 2:35 PM EST Called pt. Via [employer] poker supervisor [phone] Eduardo. Pt. States that she has a [...] phone. Please reach out to pt. With Yoruba speaking another time to see what her [...] Visit [facility]INE [address] [place] [address] Name, MD Nitin [address] [place] [address] documented as of this encounter Visit Diagnoses Not on filedocumented in this encounter Care Teams Carpenter Apprentice Relationship Specialty Start Date End Date Name, MD Nitin 230 [place] [address] PCP - General Family Medicine 08/26/17 [facility] 09/01/24 documented as of this encounter
--- OUTSIDE RECORDS SUMMARY | 2025-09-17 06:50 | XMS_ITS | Encounter Summary ---
Author Organization [employer] Address 75 [facility] 7[address] [place] [address] Care Team Providers Care Logistics Loss Prevention Manager Name Role Phone Name, Nitin PIKE Primary Care Provider [phone] Reason for Visit * Reason Onset Date Comments Call Back Request 03/14/2025 Encounter Details Date Type Department Care Team ([facility] st Contact Info) Description 03/14/2025 Telephone [facility] [address] [place], [place] [phone] Name, MD Nitin [address] [place] [address] Call Back Request Social History Tobacco Use [...] Description 11/07/2025 10:00 AM EST Office Visit [facility] [address] [place] [address] Name, MD Nitin [address] [place] [address] documented as of this encounter Visit Diagnoses Not on filedocumented in this encounter Additional Health Concerns Assessment Noted Time PHQ-9 Depression Total Score: 6 02/13/20 9:14 AM EDT documented as of this encounter Care Teams Logistics Loss Prevention Manager Relationship Specialty Start Date End Date Name, MD Nitin [address] [place] [address] PCP - General Family Medicine 08/26/17 [facility] 09/01/24 documented as of this encounter
--- OUTSIDE RECORDS SUMMARY | 2025-09-17 06:50 | XMS_ITS | Encounter Summary ---
Author Organization [employer] Address 75 [facility] [address] [place] [address] Care Team Providers Care Shop Teacher Name Role Phone Name, Nitin PIKE Primary Care Provider [phone] Reason for Visit * Reason Comments Med Refill Encounter Details Date Type Department Care Team (Late st Contact Info) Description 07/25/2025 Refill [facility] [address] [place], [place] [phone] Name, MD Nitin 230 [place] [address] Social History Tobacco Use Types Packs/Day Years [...] Description 11/07/2025 10:00 AM EST Office Visit [facility] MED[facility]INE [address] [place] [address] NameNitin MD [address] [place] [address] documented as of this encounter Visit Diagnoses Not on filedocumented in this encounter Additional Health Concerns Assessment Noted Time PHQ-9 Depression Total Score: 3 04/29/20 25 9:41 AM EDT documented as of this encounter Care Teams Shop Teacher Relationship Specialty Start Date End Date NameNitin MD [address] [place] [address] PCP - General Family Medicine 08/26/17 [facility] 09/01/24 documented as of this encounter
--- OUTSIDE RECORDS SUMMARY | 2025-09-17 06:50 | XMS_ITS | Encounter Summary ---
Author Organization [employer] Address 75 [facility] [address] [place] [address] Care Team Providers Care Steerer Name Role Phone Name, Nitin PIKE Primary Care Provider Encounter Details Date Type Department Care Team (Late st Contact Info) Description 11/06/2022 Orders Only [facility] P[facility]S [address] [place], [place] [phone] Lisha Kelly LPN Social History Tobacco Use [...] AM EST Office Visit [facility] MEDICINE 230 [place] [address] NameNitin MD 230 [place] [address] documented as of this encounter Visit Diagnoses Not on filedocumented in this encounter Care Teams Steerer Relationship Specialty Start Date End Date Nitin Echevarria MD 230 [place] [address] PCP - General Family Medicine 08/26/17 [facility] 09/01/24 documented as of this encounter
--- OUTSIDE RECORDS SUMMARY | 2025-09-17 06:50 | XMS_ITS | Clinical Summary ---
Author Organization [facility] Address [address] [address] Care Team Providers Care Contact Center Consultant Name Role Phone Name, Nitin PIKE Primary Care Provider [phone] Allergies Active Allergy Reactions Criticality Noted Date [...] patient's age to complete this [place] [address] MCR ([id number]) S[place]IPS [phone] [facility] MCR ([id number]) Care Teams Contact Center Consultant Relationship Specialty Start Date End Date Name, MD Nitin [address] [place] [address] PCP - General Internal Medicine 10/15/22
--- OUTSIDE RECORDS SUMMARY | 2025-09-17 06:50 | XMS_ITS | Encounter Summary ---
Author Organization [employer] Address 75 [facility] 7[address] [place] [address] Care Team Providers Care Carbonating Stone Cleaner Name Role Phone Name, Nitin PIKE Primary Care Provider [phone] Reason for Visit * Reason Onset Date Comments Verbal Orders 12/15/2023 Encounter Details Date Type Department Care Team ([facility] st Contact Info) Description 12/15/2023 Telephone [facility] MEDICINE 230 [place], [place] [phone] Name, MD Nitin 230 [place] [address] Verbal Orders Social History Tobacco Use Types [...] Miscellaneous Notes * Telephone Encounter - Deana Bzazi - 12/15/2023 12:03 PM EST Tc from [facility] with [employer] requesting verbal order to see pt 2 times a week for 4 weeks for Occupational Therapy, please contact [facility] at [phone] documented in this encounter Plan of Treatment Upcoming Encounters Date Type Department Care Team (Late st Contact Info) Description 11/07/2025 10:00 AM EST Office Visit [facility] MEDICINE [address] [place] [address] Name, MD Nitin [address] [place] [address] documented as of this encounter Visit Diagnoses Not on filedocumented in this encounter Additional Health Concerns Assessment Noted Time PHQ-9 Depression Total Score: 12 023 9:37 AM EDT documented as of this encounter Care Teams Carbonating Stone Cleaner Relationship Specialty Start Date End Date Name, MD Nitin [address] [place] [address] PCP - General Family Medicine 08/26/17 [facility] 09/01/24 documented as of this encounter
--- OUTSIDE RECORDS SUMMARY | 2025-09-17 06:50 | XMS_ITS | Data Portability ---
Author Organization [employer] [facility], [email or web address] Address [address] [place] [address] Care Team Providers Care School Occupational Therapist Name Role Phone HIM CCA Primary Care [...] Last Updated DateTime 18 /min 74 /min 22268.9 28 g 98 % 98 % 100 [degF] 130/66 mm[Hg] Not Available [employer] 15:33:18 Social History None recorded. Functional Status None recorded. Mental Status None recorded. Family History Nothing Reported. Medical History No medical history recorded. Gynecological HistoryNo gynecological history recorded. 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 She called today because she insists on having the catheter removed. It was removed by the furniture assembler with the understand ing that if she can't void, she will need to go the the ER. The patient agreed with this plan. [id number] Rohit Benton MD Main - [address] [address] 02/06/2024 15:33:16 02/09/2024 18:20:42 Chronic retention of urine [id number] R33.8 Has bunn catheter which was recently [...] Pinzon Member ID Guarantor Name 02/09/2024 1 [facility] - DOS ON OR AFTER 2023 - DUAL ELIGIBLE - [facility] OPTIONS AND ONE CARE (MEDICARE REPLACEMENT/ADV ANTAGE - HMO) Noreen Wing [id number] Noreen Wing Notes Date Note Type Note Provider Name and Address Organization Details Recorded Time 01/31/2024 text/html ROS as noted in the HPI CRC Nurse Triage Notes (Joana Dominique): Reason For Request: Bunn catheter malfunction/painful Chief Complaints: UTI/Pyelonephritis, Equipment-Related Allergies: No Known Comments: Emirati speaking member who denies any PMH, denies [...] KAYE Verified name//address Epifanio Mcintyre MD [address] [facility],[address], [place], [address], [employer] 01/31/2024 19:05:57 02/06/2024 text/html ROS as noted in the HPI HPI: Member asked for HV tomorrow after 10 AM if possible. Treated at the [facility] today, for F/u leaking, stated is [...] son Jame Wing. Member is 78 y/o Emirati speaking female who resides on [facility] [address] [facility] with her son. Member has [...] sees her BH counselor weekly and Prescriber NETWORK PLANNER [place] monthly if needed or every 2-3 months, .................... .................... .................... .................... .................... .................... .................... . CRC Nurse Triage Notes (Zafar Irving): Comments: Reviewed HPI .................... .................... .................... .................... .................... .................... .................... . Set Designer Note From [place]: Pt sts doesn [...] Vitals stable. Urine clear and light yellow. [facility] contacted and advised pt to rest and advised to make sure she goes to appt Friday. Pt son was used as dough scaler and mixer. Pt education on signs indicating the ER. Set Designer Allergies: Clindamycin .................... .................... .................... .................... .................... .................... .................... . Disposition: Fulfilled Rohit Benton MD [address] [facility], [place], [address], [employer] 02/06/2024 17:58:19 OBGyn Episode No OBEpisode recorded.
--- OUTSIDE RECORDS SUMMARY | 2025-09-17 06:50 | XMS_ITS | Encounter Summary ---
Author Organization [employer] Address 75 [facility] 7[address] [place] [address] Care Team Providers Care Tissue Specialist Name Role Phone Name, Nitin PIKE Primary Care Provider [phone] Reason for Visit * Reason Comments Med Refill Encounter Details Date Type Department Care Team (Late st Contact Info) Description 08/16/2024 Refill [facility] MED & PEDS [address] [place], [place] [phone] Name, MD Nitin 230 [place] [address] Heartburn Social History Tobacco Use Types Packs/Day [...] Office Visit [facility] MEDICINE [address] [place] [address] NameNitin MD [address] [place] [address] documented as of this encounter Visit Diagnoses Diagnosis Heartburn documented in this encounter Additional Health Concerns Assessment Noted Time PHQ-9 Depression Total Score: 6 02/13/20 24 9:14 AM EDT documented as of this encounter Care Teams Tissue Specialist Relationship Specialty Start Date End Date NameNitin MD [address] [place] [address] PCP - General Family Medicine 08/26/17 [facility] 09/01/24 documented as of this encounter
--- OUTSIDE RECORDS SUMMARY | 2025-09-17 06:50 | XMS_ITS | Encounter Summary ---
Author Organization [employer] Address 75 [facility] 7[address] [place] [address] Care Team Providers Care Transition Assistant Name Role Phone Name, Nitin PIKE Primary Care Provider [phone] Reason for Visit * Reason Onset Date Comments ER Follow-up 05/31/2024 Encounter Details Date Type Department Care Team ([facility] Contact Info) Description 05/31/2024 Telephone [facility] MEDICINE 230 [place], [place] [phone] Name, MD Nitin 230 [place] [address] ER Follow-up Social History Tobacco Use Types [...] to Pat ([facility]) [phone] for below message, no answer. LVM to call back on [phone]. * Telephone Encounter - Melany Santos RN - 05/31/2024 1:32 PM EDT DAVID T/[place] - [id number] for below message, pt. Had recent fall and ED visit at [facility]. RN will request GRACE piedra from [facility]. Pt. Is doing good, states I am tired andsleeping. Pt. Dose not has any question or concern right now. Pt. Already has HDF apt. Schedule on 06/10/2024. Pt. Advised to give call to [facility] if any questions or concerns. Pt. Verbally agreed and understood. Please review and advise if needed. * Telephone Encounter - Adithya Solorzano - 05/31/2024 12:50 PM EDT Patient calling to report ED visit on : Date: 05/26 Hospital: [facility] Seen for: Fall, Back Pain [...] AM EST Office Visit [facility] MEDICINE [address] [place] [address] Name, MD Nitin [address] [place] [address] documented as of this encounter Visit Diagnoses Not on filedocumented in this encounter Additional Health Concerns Assessment Noted Time PHQ-9 Depression Total Score: 6 02/13/20 24 9:14 AM EDT documented as of this encounter Care Teams Transition Assistant Relationship Specialty Start Date End Date Name, MD Nitin [address] [place] [address] PCP - General Family Medicine 08/26/17 [facility] 09/01/24 documented as of this encounter
--- OUTSIDE RECORDS SUMMARY | 2025-09-17 06:50 | XMS_ITS | Encounter Summary ---
Author Organization [employer] Address 75 [facility] [address] [place] [address] Care Team Providers Care Ski Topper Name Role Phone Name, Nitin PIKE Primary Care Provider [phone] Reason for Visit * Reason Comments Med Refill Encounter Details Date Type Department Care Team ([facility] st Contact Info) Description 04/01/2024 Refill [facility] MEDICINE 230 [place], [place] [phone] Name, MD Nitin [address] [place] [address] Rash Social History Tobacco Use Types Packs/Day [...] Office Visit [facility] MEDICINE [address] [place] [address] NameNitin MD [address] [place] [address] documented as of this encounter Visit Diagnoses Diagnosis Rash Rash and other nonspecific skin eruption documented in this encounter Additional Health Concerns Assessment Noted Time PHQ-9 Depression Total Score: 6 02/13/20 24 9:14 AM EDT documented as of this encounter Care Teams Ski Topper Relationship Specialty Start Date End Date NameNitin MD [address] [place] [address] PCP - General Family Medicine 08/26/17 [facility] 09/01/24 documented as of this encounter
--- OUTSIDE RECORDS SUMMARY | 2025-09-17 06:50 | XMS_ITS | Encounter Summary ---
Author Organization [employer] Address 75 [facility] 7[address] [place] [address] Care Team Providers Care Piper Installer Name Role Phone Name, Nitin PIKE Primary Care Provider [phone] Reason for Visit * Reason Onset Date Comments Referral 08/24/2025 Encounter Details Date Type Department Care Team ([facility] st Contact Info) Description 08/24/2025 Telephone [facility] MEDICINE 230 [place], [place] [phone] Name, MD Nitin [address] [place] [address] Referral Social History Tobacco Use Types Packs/Day [...] DATE: 09/21/25 TIME: 10 am Facility Name: [facility] PT Type of Specialist: Physical therapy Facility Phone # : [phone] Fax #: [phone] documented in this encounter Plan of Treatment Upcoming Encounters Date Type Department Care Team (Late st Contact Info) Description 11/07/2025 10:00 AM EST Office Visit [facility] MEDICINE [address] [place], [place] [phone] Name, MD Nitin [address] [place] [address] documented as of this encounter Visit Diagnoses Not on filedocumented in this encounter Additional Health Concerns Assessment Noted Time PHQ-9 Depression Total Score: 3 04/29/20 9:41 AM EDT documented as of this encounter Care Teams Piper Installer Relationship Specialty Start Date End Date Name, MD Nitin [address] [place] [address] PCP - General Family Medicine 08/26/17 [facility] 09/01/24 documented as of this encounter
[2025-09-17 07:25] VITALS: BP 126/79; PULSE 94; RESP 18; TEMP 36.9; O2SAT 97
[2025-09-17 07:28] LABS: Glucose, Whole Blood 98 mg/dL (60-115)
--- NOTE | 2025-09-17 08:22 | ED_ITS ---
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 She did not trial any pain medications at home. Reports fracture to the left knee 1 month ago. She has since stopped wearing her knee brace as it broke . She is requesting a new one. She denies any new trauma or injury to the left knee. She has physical therapy follow up scheduled for 09/21/25. She says she has plenty of help/aid at home and does not wish to be re-evaluated by PT/CM. No other complaints. No LLE swelling/redness, chest pain, palpitations, SOB. Related Data Home Medications ?Medication ?Instructions ?Recorded ?Confirmed omeprazole 20 mg tablet,delayed 20 mg PO DAILY@0630 08/22/25 release aspirin 81 mg tablet,delayed 81 mg PO QAM 01/28/24 release bisacodyl 5 mg tablet,delayed 5 mg PO DAILY PRN consti pation 01/28/24 08/22/25 release ferrous sulfate 325 mg (65 mg 325 mg PO DAILY 01/28/24 08/22/25 iron) tablet (FeroSul) melatonin 10 mg tablet,extended 10 mg PO BEDTIME PRN I nsomnia 01/28/24 08/22/25 release multivitamin 1 tab PO QAM 01/28/24 rosuvastatin 20 mg tablet 20 mg PO BEDTIME 01/28/24 trazodone 50 mg tablet 50 mg PO BEDTIME 01/28/24 amlodipine 10 mg tablet 10 mg PO DAILY 02/09/2408/10 acetaminophen 500 mg tablet 500 mg PO Q8H PRN pain 08/22/25 cholecalciferol (vitamin D3) 25 25 mcg PO DAILY 08/22/25 mcg (1,000 unit) tablet sertraline 100 mg tablet 100 mg PO DAILY 03/16/25 apixaban 5 mg tablet 5 mg PO BID 08/22/25 5 clonazepam 0.5 mg tablet 0.5 mg PO TID 08/22/2508/22 fluticasone propionate 50 2 spray intranasal DAILY PRN 08/22/25 08/22/25 mcg/actuation nasal Allergic Symptoms spray,suspension (Flonase Allergy Relief) hydroxyzine HCl 25 mg tablet 10 mg PO DAILY PRN anxiet y 08/22/25 08/22/25 ketotifen fumarate 0.025 % (0.035 1 drp ophthalmic (ey e) BID PRN 08/22/25 08/22/25 %) eye drops allergies mirtazapine 45 mg tablet 45 mg PO BEDTIME 08/22/25 valsartan 160 mg tablet 160 mg PO QPM 08/22/2508/22 Previous Rx's ?Medication ?Instructions ?Recorded metoprolol succinate 50 mg 50 mg PO DAILY #90 tabs tablet,extended release 24 hr docusate sodium 100 mg capsule 200 mg (2 x 100 mg) PO BID #20 caps 02/24/25 (Colace) ibuprofen 200 mg tablet 200 mg PO Q6H PRN pain #20 t abs 07/24/25 meclizine 12.5 mg tablet 12.5 mg PO TID PRN dizziness or 07/26/25 vertigo #30 tabs meclizine 25 mg tablet 25 mg PO BID PRN dizziness # 14 tabs 09/22/25 Allergies Allergy/AdvReac Type Severity Reaction Status Date / Time penicillin G (Penicillin G) Allergy Severe ITCHY/RASH Verified 09/22/25 06:10 Sulfa (Sulfonamide Allergy Severe ITCHY,RASH, Verified 09/22/25 06:10 Antibiotics) (Sulfa rash (Sulfonamides)) trimethoprim (From Bactrim) Allergy Severe HIVES Verified 09/22/25 06:10 Penicillins Allergy Intermediate Hives Verified 09/22/25 06:10 sulfamethoxazole (From Allergy Mild Hives Verified 09/22/25 06:10 Bactrim) Review of Systems Review of Systems: Yes all other systems are reviewed and are negative PMFSH Past Medical History Attestation statement: The following information was validated with the patient. 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) Alcohol intake: never Patient Tobacco Use Status: Never used Tobacco Smoked in Last 30 Days: No Use of substances other than those prescribed or required for medical reasons: No Advance Directives: Yes Advance Directives on File: Yes Advance Directives Date on File: 01/28/24 Do you have a plan to hurt others: No Plan service: No Physical Exam Vital Signs: Vital Signs: Last Vital Signs Temp 98.5 F 09/17/25 09:57 Pulse 94 09/17/25 09:57 Resp 18 09/17/25 09:57 BP 126/79 09/17/25 09:57 Pulse Ox 97 09/17/25 09:57 O2 Del Method Room Air 09/17/25 09:57 BMI result Body Mass Index 32.0 Vital signs stable General: Well appearing, in no acute distress. Skin: Warm, dry, intact. No rashes or lesions. Head: Normocephalic, atraumatic. EENT: Hearing is intact b/l. Conjunctiva clear. PERRLA. EOM intact. Moist mucous membranes.? Cardiac: Chest wall symmetric. RRR Lungs: Normal respiratory effort without accessory muscle use. CTA bilaterally Back: No midline spinous or paraspinal tenderness. No step off deformity. Ext: +mild swelling to anterior aspect of L knee, no deformity. no overlying erythema, wounds. FROM intact to left knee without reported pain. diffusely ttp of L knee without crepitus, deformity, warmth. no calf tenderness. 2+ dp pulse i ntact. Neuro: AOx3. Normal speech. Ambulating with steady gait. Course Course Course Narrative: There has been no new injury or trauma to the left knee. Patient is having acute on chronic knee pain, secondary to recent fracture. She has not been wearing her knee brace, states that it broke. She has physical therapy scheduled for her fracture. Her exam is quite reassuring. I do not feel as though repeat imaging is warranted at this time. Will manage with pain control. Will provide patient with a new new brace - she is declining PT/CM at this time. Patient has remained stable throughout ED visit today. Discussed worrisome signs and symptoms and when to return to the ED. All questions answered at this time. Patient is agreeable with disposition and stable for discharge. Medications Administered Discontinued Medications Generic Name Dose Route Start Last Admin Trade Name Freq PRN Reason Stop Dose Admin Morphine Sulfate 15 mg 09/17/25 08:39 09/17/25 08:58 Morphine Sulfate Immed Release 15 Mg Tablet PO 09/17/25 08:40 15 mg ONCE ONE Administration Medical Decision Making Medical Decision Making [facility] Narrative: 79 year old female with pmhx significant for HTN, HLD, anxiety, OA, dementia, SVT, CKD, PE previously on Eliquis presents to the ED today via EMS for evaluation of acute on chronic left knee pain since last night. Differential diagnosis includes acute on chronic knee pain, chronic fracture, arthritis. Unlikely acute fracture, dislocation, nv compromise, threat to limb, compartment syndrome. Plan for pain control, knee brace, and disposition. Differential Diagnosis Differential Diagnoses: The differential diagnosis associated with the presentation includes as above. Admission/Observation not indicated. Lab Data [facility] Lab Attestation statement: I reviewed the patient's lab results. as above. Labs: Lab Results 09/17/25 Range/Units 07:24 POC Glucose 98 (60-115) mg/dL Independent Interpretation I performed an independent interpretation of an: Plain X-Ray Interpretation: knee xray obtained on 08/26/25 showing small tibial fracture Radiology Impression Discussion of test interpretation with radiology: I have reviewed the radiologist's reading. Radiologist Impression: Procedure(s): XR knee LT 4V Accession Number(s): [id number] cc: Rochelle Hernandez DO~ Reason for Exam: pain EXAMINATION: XR KNEE 4 OR MORE VIEWS LEFT HISTORY: pain COMPARISON: Comparison is made with the prior examination dated 08/22/2025. FINDINGS: Five views of the left knee are submitted. Osseous mineralization is normal. 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 There is no acute fracture or dislocation. The joint spaces are preserved. There are vascular calcifications. There is no joint effusion. XR/XR knee LT 4V IMPRESSION: No acute abnormality. Independent Historian Clinical information obtained from an independent historian. History obtained from or confirmed by: EMS External Record Review External record reviewed: Inpatient record Prescription Management I considered prescription management with: Pain Medication Social Determinants Patient?s care significantly limited by Social Determinants of Health including: Other Social Determinant of Health Critical Care Time Critical Care Time Critical Care Time: No Discharge Plan Discharge Clinical Impression: Knee pain Patient Disposition: Home, Self-Care Instructions: Knee Pain (ED) Additional Instructions: You were evaluated in the ED today for your chronic left knee pain. We have provided you with a new knee brace as yours broke. Where this throughout the day to help with compression/stabilization. You may remove this after 48 hours and engage in gentle [id number]. Take Tylenol/Motrin at home as needed for pain/discomfort. You have physical therapy scheduled for 09/21/2025. Please keep that appointment. You are declining any further physical therapy evaluation or case management intervention at this time. Return with any new or worsening symptoms. In the case of an emergency call 911. Prescriptions: No Action metoprolol succinate 50 mg tablet extended release 24 hr 50 mg PO DAILY Qty: 90 2RF omeprazole 20 mg Tablet,Delayed Release (Dr/Ec) 20 mg PO DAILY@0630 meclizine 12.5 mg tablet 12.5 mg PO TID PRN (Reason: dizziness or vertigo) Qty: 30 0RF trazodone 50 mg tablet 50 mg PO BEDTIME ferrous sulfate [FeroSul] 325 mg (65 mg iron) tablet 325 mg PO DAILY bisacodyl 5 mg tablet,delayed release (DR/EC) 5 mg PO DAILY PRN (Reason: constipation) rosuvastatin 20 mg tablet 20 mg PO BEDTIME aspirin 81 mg tablet,delayed release (DR/EC) 81 mg PO QAM multivitamin Tablet 1 tab PO QAM melatonin 10 mg tablet extended release 10 mg PO BEDTIME PRN (Reason: Insomnia) cholecalciferol (vitamin D3) 25 mcg (1,000 unit) tablet 25 mcg PO DAILY acetaminophen 500 mg tablet 500 mg PO Q8H PRN (Reason: pain) docusate sodium [Colace] 100 mg capsule 200 mg PO BID Qty: 20 0RF ibuprofen 200 mg tablet 200 mg PO Q6H PRN (Reason: pain) Qty: 20 0RF ketotifen fumarate 0.025 % (0.035 %) drops 1 drp ophthalmic (eye) BID PRN (Reason: allergies) mirtazapine 45 mg tablet 45 mg PO BEDTIME clonazepam 0.5 mg tablet 0.5 mg PO TID hydroxyzine HCl 25 mg tablet 10 mg PO DAILY PRN (Reason: anxiety) fluticasone propionate [Flonase Allergy Relief] 50 mcg/actuation spray,suspension 2 spray intranasal DAILY PRN (Reason: Allergic Symptoms) Rx Instructions: administer into each nostril apixaban 5 mg tablet 5 mg PO BID valsartan 160 mg tablet 160 mg PO QPM meclizine 25 mg tablet 25 mg PO BID PRN (Reason: dizziness) Qty: 14 0RF sertraline 100 mg tablet 100 mg PO DAILY amlodipine 10 mg tablet 10 mg PO DAILY Referrals: [facility] [Primary Care Provider, Medical] Interventions: ED Discharge Assessment Last Done: 09/17/25 09:57 Discharge Date/Time: 09/17/25 09:57 Print Language: Kiswahili
[2025-09-17] MEDS: Morphine Sulfate Immed Release 15 MG TABLET PO (08:58)
[2025-09-17 09:57] VITALS: BP 126/79; PULSE 94; RESP 18; TEMP 36.9; O2SAT 97
== END 2025-09-17 09:57 | disposition home or self-care (01) ==
PROVIDERS: Emergency Provider Emergency Medicine Emergency Medical Services
DX: M25.562 Pain in left knee (principal); I12.9 Hypertensive chronic kidney disease with stage 1 through stage 4 chronic kidney disease, or unspecified chronic kidney disease; N18.9 Chronic kidney disease, unspecified; F03.90 Unspecified dementia, unspecified severity, without behavioral disturbance, psychotic disturbance, mood disturbance, and anxiety; Z86.711 Personal history of pulmonary embolism; Z88.0 Allergy status to penicillin; Z88.2 Allergy status to sulfonamides
CPT/HCPCS: 82947; 99283; 99284

== ENCOUNTER 2025-09-18 13:26 | Emergency (ER) | payer OTHER, SELFPAY ==
--- NOTE | ~2025-09-18 | XR_ITS ---
CLINICAL HISTORY: Left knee pain 4 views left knee Comparison: 08/26/2025 Findings: No fractures or dislocations. No joint effusion. Stable slight medial compartment joint space narrowing and slight patellar and lateral compartment spurring. 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 No radiopaque foreign body. Impression: 1. Stable-appearing left knee This document has been electronically signed by: Ash Sherman MD on 09/18/2025 15:36:33
[2025-09-18 13:31] VITALS: BP 139/72; PULSE 90; O2SAT 98
[2025-09-18 14:01] VITALS: BP 112/57; PULSE 92; RESP 18; TEMP 36.6; O2SAT 97; BMI 27.4
--- NOTE | 2025-09-18 14:08 | ED.GENADULT ---
HPI - General Adult General Chief complaint: Extremity Injury, Lower Stated complaint: L KNEE PAIN Time Seen by Provider: 09/18/25 16:19 Source: patient, EMS and surgical manager Mode of arrival: EMS Limitations: language barrier History of Present Illness ED Provider: HPI narrative: 79-year-old woman presenting with requesting medications for anxiety and morphine for her left knee pain. Multiple recurrent visits for same. Related Data Home Medications ?Medication ?Instructions ?Recorded ?Confirmed omeprazole 20 mg tablet,delayed 20 mg PO DAILY@0630 08/09/20 08/22/25 release aspirin 81 mg tablet,delayed 81 mg PO QAM 01/28/24 08/22/25 release bisacodyl 5 mg tablet,delayed 5 mg PO DAILY PRN constipation 01/28/24 08/22/25 release ferrous sulfate 325 mg (65 mg 325 mg PO DAILY 01/28/24 08/22/25 iron) tablet (FeroSul) melatonin 10 mg tablet,extended 10 mg PO BEDTIME PRN Insomnia 01/28/24 08/22/25 release multivitamin 1 tab PO QAM 01/28/24 08/22/25 rosuvastatin 20 mg tablet 20 mg PO BEDTIME 01/28/24 08/22/25 trazodone 50 mg tablet 50 mg PO BEDTIME 01/28/24 08/22/25 amlodipine 10 mg tablet 10 mg PO DAILY 02/09/24 08/22/25 acetaminophen 500 mg tablet 500 mg PO Q8H PRN pain 08/09/24 08/22/25 cholecalciferol (vitamin D3) 25 25 mcg PO DAILY 08/20/24 08/22/25 mcg (1,000 unit) tablet sertraline 100 mg tablet 100 mg PO DAILY 03/16/25 08/22/25 apixaban 5 mg tablet 5 mg PO BID 08/22/25 08/22/25 clonazepam 0.5 mg tablet 0.5 mg PO TID 08/22/25 08/22/25 fluticasone propionate 50 2 spray intranasal DAILY PRN 08/22/25 08/22/25 mcg/actuation nasal Allergic Symptoms spray,suspension (Flonase Allergy Relief) hydroxyzine HCl 25 mg tablet 10 mg PO DAILY PRN anxiety 08/22/25 08/22/25 ketotifen fumarate 0.025 % (0.035 1 drp ophthalmic (eye) BID PRN 08/22/25 08/22/25 %) eye drops allergies mirtazapine 45 mg tablet 45 mg PO BEDTIME 08/22/25 08/22/25 valsartan 160 mg tablet 160 mg PO QPM 08/22/25 08/22/25 Previous Rx's ?Medication ?Instructions ?Recorded metoprolol succinate 50 mg 50 mg PO DAILY #90 tabs 09/28/20 tablet,extended release 24 hr docusate sodium 100 mg capsule 200 mg (2 x 100 mg) PO BID #20 caps 02/24/25 (Colace) ibuprofen 200 mg tablet 200 mg PO Q6H PRN pain #20 tabs 07/24/25 meclizine 12.5 mg tablet 12.5 mg PO TID PRN dizziness or 07/26/25 vertigo #30 tabs Allergies Allergy/AdvReac Type Severity Reaction Status Date / Time penicillin G (Penicillin G) Allergy Severe ITCHY/RASH Verified 09/18/25 23:51 Sulfa (Sulfonamide Allergy Severe ITCHY,RASH, Verified 09/18/25 23:51 Antibiotics) (Sulfa rash (Sulfonamides)) trimethoprim (From Bactrim) Allergy Severe HIVES Verified 09/18/25 23:51 Penicillins Allergy Intermediate Hives Verified 09/18/25 23:51 sulfamethoxazole (From Allergy Mild Hives Verified 09/18/25 23:51 Bactrim) Review of Systems Constitutional: Constitutional: Reports as per [facility] Past Medical History 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 no facial trauma no head trauma noted ? ?CV: RRR, no obvious murmurs appreciated ? ?Resp: ?No wheezing rales rhonchi no stridor moving air well ? Abd: ?Bowel sounds are present, no tenderness no rebound no rigidity ? ?MSK: Left knee is in a brace ? Skin: Warm, dry, intact, distal pulses intact ? ?Neuro: ?Alert and oriented x3, moving upper and lower extremities symmetrically, no obvious facial asymmetry noted, cranial nerves 2-12 intact Anxious affect, no SI or HI Vital Signs: Vital Signs - 24 hr 09/18/25 14:01 09/18/25 16:46 Temperature 98 F 98 F Pulse Rate 92 92 Respiratory Rate 18 18 Blood Pressure 112/57 L 112/57 L Pulse Oximetry 97 97 Oxygen Delivery Method Room Air Room Air BMI result Body Mass Index 27.4 Course Course Course Narrative: RME; 79 yold female presents to the ED for knee pain without any new trauma. Patient states history of knee fracture chronic pain. Patient states no relief with Tylenol and Motrin. Patient was morphine for pain. New x-ray ordered. Medications Administered Discontinued Medications Generic Name Dose Route Start Last Admin Trade Name Freq PRN Reason Stop Dose Admin Acetaminophen 975 mg 09/18/25 16:30 09/18/25 16:39 Acetaminophen 325 Mg Tablet PO 09/18/25 16:31 975 mg ONCE ONE Administration Hydroxyzine HCl 25 mg 09/18/25 16:30 09/18/25 16:40 Hydroxyzine Hcl 25 Mg Tablet PO 09/18/25 16:31 25 mg ONCE ONE Administration Medical Decision Making Medical Decision Making [facility] Narrative: 4:33 PM 09/18/2025 (Dr. Rafael Calderon): I discussed with the patient that I am not going to prescribe her benzodiazepines or narcotic medications, she had a knee x-ray with chronic bone island of her tibial plateau, uses a brace has not appointment coming up with Orthopedics, patient is not really complaining of anything such as chest pain or difficulty breathing, no hypoxia tachycardic did not feel further imaging or ECGs indicated as she has had multiple EKGs with a in the past few months, and had CTAs, and she is on blood thinners do not suspect a the aortic dissection, PE I will offer Tylenol and hydroxyzine, Differential Diagnosis Differential Diagnoses: The differential diagnosis associated with the presentation includes (See above) Lab Data [facility] Lab Attestation statement: I reviewed the patient's lab results. (Labs from prior visit) Independent Interpretation I performed an independent interpretation of an: Plain X-Ray (Chronic bone island of tibial plateau) Radiology Impression Discussion of test interpretation with radiology: I have reviewed the radiologist's reading. External Record Review I reviewed prior recent labs done September 03 Tests considered The following testing was considered but not selected: EKG, CBC, chemistry Social Determinants Patient?s care significantly limited by Social Determinants of Health including: Problems related to primary support group Discharge Plan Discharge Clinical Impression: Left knee pain, Anxiety Patient Disposition: Home, Self-Care Prescriptions: No Action metoprolol succinate 50 mg tablet extended release 24 hr 50 mg PO DAILY Qty: 90 2RF omeprazole 20 mg Tablet,Delayed Release (Dr/Ec) 20 mg PO DAILY@0630 meclizine 12.5 mg tablet 12.5 mg PO TID PRN (Reason: dizziness or vertigo) Qty: 30 0RF trazodone 50 mg tablet 50 mg PO BEDTIME ferrous sulfate [FeroSul] 325 mg (65 mg iron) tablet 325 mg PO DAILY bisacodyl 5 mg tablet,delayed release (DR/EC) 5 mg PO DAILY PRN (Reason: constipation) rosuvastatin 20 mg tablet 20 mg PO BEDTIME aspirin 81 mg tablet,delayed release (DR/EC) 81 mg PO QAM multivitamin Tablet 1 tab PO QAM melatonin 10 mg tablet extended release 10 mg PO BEDTIME PRN (Reason: Insomnia) cholecalciferol (vitamin D3) 25 mcg (1,000 unit) tablet 25 mcg PO DAILY acetaminophen 500 mg tablet 500 mg PO Q8H PRN (Reason: pain) docusate sodium [Colace] 100 mg capsule 200 mg PO BID Qty: 20 0RF ibuprofen 200 mg tablet 200 mg PO Q6H PRN (Reason: pain) Qty: 20 0RF ketotifen fumarate 0.025 % (0.035 %) drops 1 drp ophthalmic (eye) BID PRN (Reason: allergies) mirtazapine 45 mg tablet 45 mg PO BEDTIME clonazepam 0.5 mg tablet 0.5 mg PO TID hydroxyzine HCl 25 mg tablet 10 mg PO DAILY PRN (Reason: anxiety) fluticasone propionate [Flonase Allergy Relief] 50 mcg/actuation spray,suspension 2 spray intranasal DAILY PRN (Reason: Allergic Symptoms) Rx Instructions: administer into each nostril apixaban 5 mg tablet 5 mg PO BID valsartan 160 mg tablet 160 mg PO QPM sertraline 100 mg tablet 100 mg PO DAILY amlodipine 10 mg tablet 10 mg PO DAILY Interventions: ED Discharge Assessment Last Done: 09/18/25 16:46 Discharge Date/Time: 09/18/25 16:46 Print Language: Salvadorean
--- OUTSIDE RECORDS SUMMARY | 2025-09-18 14:10 | XMS_ITS | Encounter Summary ---
Author Organization [employer] Address [address] [place] [address] Care Team Providers Care Otc Clerk Name Role Phone Name, Nitin PIKE Primary Care Provider [phone] Reason for Visit * Reason Onset Date Comments Referral 08/24/2025 Encounter Details Date Type Department Care Team ([facility] st Contact Info) Description 08/24/2025 Telephone [facility] [address] [place], [place] [phone] Name, MD Nitin [address] [place] [address] Referral Social History Tobacco Use Types Packs/Day [...] 09/21/25 TIME: 10 am Facility Name: [facility] Type of Specialist: Physical therapy Facility Phone # : [phone] Fax #: [phone] documented in this encounter Plan of Treatment Upcoming Encounters Date Type Department Care Team (Late st Contact Info) Description 11/07/2025 10:00 AM EST Office Visit [facility] [address] [place], [place] [phone] Name, MD Nitin [address] [place] [address] documented as of this encounter Visit Diagnoses Not on filedocumented in this encounter Additional Health Concerns Assessment Noted Time PHQ-9 Depression Total Score: 3 04/29/20 9:41 AM EDT documented as of this encounter Care Teams Otc Clerk Relationship Specialty Start Date End Date Name, MD Nitin [address] [place] [address] PCP - General Family Medicine 08/26/17 [facility] 09/01/24 documented as of this encounter
--- OUTSIDE RECORDS SUMMARY | 2025-09-18 14:10 | XMS_ITS | Encounter Summary ---
Author Organization [employer] Address [address] [facility] [address] [place] [address] Care Team Providers Care Drafting Layout Man Name Role Phone Name, Nitin PIKE Primary Care Provider [phone] Encounter Details Date Type Department Care Team ([facility] Contact Info) Description 01/06/2023 Orders Only [facility] [address] [place], [place] [phone] Lisha Kelly LPN Social History Tobacco Use [...] Office Visit [facility] [address] [place] [address] NameNitin MD [address] [place] [address] documented as of this encounter Visit Diagnoses Not on filedocumented in this encounter Care Teams Drafting Layout Man Relationship Specialty Start Date End Date NameNitin MD [address] [place] [address] PCP - General Family Medicine 08/26/17 [facility] 09/01/24 documented as of this encounter
--- OUTSIDE RECORDS SUMMARY | 2025-09-18 14:10 | XMS_ITS | Encounter Summary ---
Author Organization [employer] Address [address] [facility] [address] [place] [address] Care Team Providers Care Director Of Business Systems Name Role Phone Name, Nitin PIKE Primary Care Provider Reason for Visit * Reason Comments Med Refill Encounter Details Date Type Department Care Team (Late st Contact Info) Description 07/25/2025 Refill [facility] [address] [place], [place] [phone] Name, MD Nitin [address] [place] [address] Social History Tobacco Use Types Packs/Day Years [...] 11/07/2025 10:00 AM EST Office Visit [facility] [address] [place] [phone] NameNitin MD [address] [place] [phone] documented as of this encounter Visit Diagnoses Not on filedocumented in this encounter Additional Health Concerns Assessment Noted Time PHQ-9 Depression Total Score: 3 04/29/20 25 9:41 AM EDT documented as of this encounter Care Teams Director Of Business Systems Relationship Specialty Start Date End Date NameNitin MD [address] [place] [id number] PCP - General Family Medicine 08/26/17 [facility] 09/01/24 documented as of this encounter
--- OUTSIDE RECORDS SUMMARY | 2025-09-18 14:10 | XMS_ITS | Encounter Summary ---
Author Organization [employer] Address 75 [facility] 7[address] [place] [address] Care Team Providers Care Placement Assistant Name Role Phone Name, Nitin PIKE Primary Care Provider [phone] Reason for Visit * Reason Onset Date Comments Hospital Follow-up 10/20/2024 Encounter Details Date Type Department Care Team ([facility] Contact Info) Description 10/20/2024 Telephone [facility] [address] [place], [place] [phone] Name, MD Nitin [address] [place] [address] Hospital Follow-up Social History Tobacco Use Types [...] from pt requesting a HDF appt. Hospital: [facility] Date of admission: 10/17 Discharge date: 10/19 Diagnosed: High Blood Pressure and Fever Contact pt at [phone] *Send message to [place] Clinical Care Coordinators documented in this encounter Plan of Treatment Upcoming Encounters Date Type Department Care Team (Late st Contact Info) Description 11/07/2025 10:00 AM EST Office Visit [facility] [address] [place] [address] Name, MD Nitin [address] [place] [address] documented as of this encounter Visit Diagnoses Not on filedocumented in this encounter Additional Health Concerns Assessment Noted Time PHQ-9 Depression Total Score: 6 02/13/20 24 9:14 AM EDT documented as of this encounter Care Teams Placement Assistant Relationship Specialty Start Date End Date Name, MD Nitin [address] [place] [address] PCP - General Family Medicine 08/26/17 [facility] 09/01/24 documented as of this encounter
--- OUTSIDE RECORDS SUMMARY | 2025-09-18 14:10 | XMS_ITS | Encounter Summary ---
Author Organization [employer] Address 75 [facility] [address] [place] [address] Care Team Providers Care Ged Tutor Name Role Phone Name, Nitin PIKE Primary Care Provider [phone] Reason for Visit * Reason Comments Med Refill Encounter Details Date Type Department Care Team (Late st Contact Info) Description 04/20/2025 Refill [facility] [address] [place] [address] Zechariah Cheung MD [address] [place] [address] Allergic rhinitis, unspecified seasonality, unspecified trigger Social [...] Description 11/07/2025 10:00 AM EST Office Visit [facility] [address] [place] [address] NameNitin MD [address] [place] [address] documented as of this encounter Visit Diagnoses Diagnosis Allergic rhinitis, unspecified seasonality, unspecified trigger documented in this encounter Additional Health Concerns Assessment Noted Time PHQ-9 Depression Total Score: 6 02/13/20 9:14 AM EDT documented as of this encounter Care Teams Ged Tutor Relationship Specialty Start Date End Date Nitin Echevarria MD [address] [place] [address] PCP - General Family Medicine 08/26/17 [facility] 09/01/24 documented as of this encounter
--- OUTSIDE RECORDS SUMMARY | 2025-09-18 14:10 | XMS_ITS | Encounter Summary ---
Author Organization [employer] Address [address] [facility] [address] [place] [address] Care Team Providers Care Lawn Care Professional Name Role Phone Name, Nitin PIKE Primary Care Provider [phone] Encounter Details Date Type Department Care Team ([facility] Contact Info) Description 12/17/2022 Orders Only [facility]S [address] [place], [place] [phone] Lisha Kelly LPN Social History Tobacco Use [...] Description 11/07/2025 10:00 AM EST Office Visit [facility] MED[facility]INE [address] [place] [address] Nitin Echevarria MD [address] [place] [address] documented as of this encounter Visit Diagnoses Not on filedocumented in this encounter Care Teams Lawn Care Professional Relationship Specialty Start Date End Date NameNitin MD [address] [place] [address] PCP - General Family Medicine 08/26/17 [facility] 09/01/24 documented as of this encounter
--- OUTSIDE RECORDS SUMMARY | 2025-09-18 14:10 | XMS_ITS | Encounter Summary ---
Author Organization [employer] Address 75 [facility] 7t [place] [address] Care Team Providers Care Knit Goods Washer Name Role Phone Name, Nitin PIKE Primary Care Provider [phone] Encounter Details Date Type Department Care Team (Late st Contact Info) Description 09/17/2025 Orders Only GENERIC EXTERNAL DATA DEPARTMENT Provider, [...] AM EST Office Visit [facility] MED[facility] [address] [place] [address] Name, MD Nitin [address] [place] [address] documented as of this encounter Procedures Procedure Name Priority Date/Time Associated Diagnosis Comments GLUCOSE, WHOLE BLOOD Routine 09/17/2025 7:24 AM EST documented in this encounter Results * Glucose, Whole Blood (09/17/2025 7:24 AM EST) Glucose, Whole Blood 98 60 - 115 mg/dL [facility] Comment:METER #: [id number] 09/17/2025 7:24 AM EST 09/17/2025 7:28 AM EST us Generic External Data Provider LAB BLOOD ORDERAB LES Final Result [facility] [address] [place] [address] [phone] documented in this encounter Visit Diagnoses Not on filedocumented in this encounter Additional Health Concerns Assessment Noted Time PHQ-9 Depression Total Score: 3 04/29/20 25 9:41 AM EDT documented as of this encounter Care Teams Knit Goods Washer Relationship Specialty Start Date End Date Name, MD Nitin [address] [place] [address] PCP - General Family Medicine 08/26/17 [facility] 09/01/24 documented as of this encounter
--- OUTSIDE RECORDS SUMMARY | 2025-09-18 14:10 | XMS_ITS | Clinical Summary ---
Author Organization [facility] Address [address] [place] [address] Phone Care Team Providers Care Short Goods Drier Name Role Phone Physician, No Pcp [...] t [facility] [address] [place] [address], from Last 3 Months or Most Recently Relevant to Health Maintenance Insurance [facility] MEDICARE Member Subscriber Plan / Payer (Ef fective 2021-Present) Name:Noreen Wing Relation to Subscriber:Self Name:Noreen Wing Payer ID:[id number] Group ID:[id number] Type:Not on file Address: [place] [address] Care Teams Short Goods Drier Relationship Specialty Start Date End Date Physician, No Pcp PCP - General 09/22/24
--- OUTSIDE RECORDS SUMMARY | 2025-09-18 14:10 | XMS_ITS | Encounter Summary ---
Author Organization [employer] Address 75 [facility] 7[address] [place] [address] Care Team Providers Care Manager Medicaid Name Role Phone Name, Nitin PIKE Primary Care Provider [phone] Reason for Visit * Reason Onset Date Comments Verbal Orders 12/15/2023 Encounter Details Date Type Department Care Team ([facility] st Contact Info) Description 12/15/2023 Telephone [facility] MEDICINE [address] [place], [place] [phone] Name, MD Nitin [address] [place] [address] Verbal Orders Social History Tobacco Use Types [...] 12:03 PM EST Tc from [place] with [employer] requesting verbal order to see pt 2 times a week for 4 weeks for Occupational Therapy, please contact Josseline at [phone] documented in this encounter Plan of Treatment Upcoming Encounters Date Type Department Care Team (Late st Contact Info) Description 11/07/2025 10:00 AM EST Office Visit [facility] MED[facility] [address] [place] [address] Name, MD Nitin [address] [place] [address] documented as of this encounter Visit Diagnoses Not on filedocumented in this encounter Additional Health Concerns Assessment Noted Time PHQ-9 Depression Total Score: 12 023 9:37 AM EDT documented as of this encounter Care Teams Manager Medicaid Relationship Specialty Start Date End Date Name, MD Nitin [address] [place] [address] PCP - General Family Medicine 08/26/17 [facility] 09/01/24 documented as of this encounter
--- OUTSIDE RECORDS SUMMARY | 2025-09-18 14:10 | XMS_ITS | Encounter Summary ---
Author Organization [employer] Address [address] [facility] [address] [place] [address] Care Team Providers Care Sales Marketing Director Name Role Phone Name, Nitin PIKE Primary Care Provider [phone] Reason for Visit * Reason Onset Date Comments Results 08/29/2023 Encounter Details Date Type Department Care Team ([facility] st Contact Info) Description 08/29/2023 Telephone [facility] MED[facility]INE 230 [place], [place] [phone] Name, MD Nitin [address] [place] [address] Results Social History Tobacco Use Types Packs/Day [...] 09/01/2023 11:51 AM EDT Pt evaluated in [facility] today and is scheduled with pcp 09/03/23. * Telephone Encounter - Janette Huitron - 08/29/2023 4:06 PM EDT Tc from pt requesting a call in regards to urine results. Please contact pt at [phone] (Russian) documented in this encounter Plan of Treatment Upcoming Encounters Date Type Department Care Team (Late st Contact Info) Description 11/07/2025 10:00 AM EST Office Visit [facility] MEDICINE [address] [place] [address] Name, MD Nitin [address] [place] [address] documented as of this encounter Visit Diagnoses Not on filedocumented in this encounter Additional Health Concerns Assessment Noted Time PHQ-9 Depression Total Score: 12 023 9:37 AM EDT documented as of this encounter Care Teams Sales Marketing Director Relationship Specialty Start Date End Date Name, MD Nitin [address] [place] [address] PCP - General Family Medicine 08/26/17 [facility] 09/01/24 documented as of this encounter
--- OUTSIDE RECORDS SUMMARY | 2025-09-18 14:10 | XMS_ITS | Encounter Summary ---
Author Organization [employer] Address 75 [facility] 7[address] [place] [address] Care Team Providers Care Freight Car Cleaner Name Role Phone Name, Nitin PIKE Primary Care Provider [phone] Reason for Visit * Reason Onset Date Comments triage 12/18/2022 Encounter Details Date Type Department Care Team ([facility] st Contact Info) Description 12/18/2022 Telephone [facility] MEDICINE 230 [place], [place] [phone] Name, MD Nitin [address] [place] [address] triage Social History Tobacco Use Types Packs/Day [...] 12/18/2022 2:35 PM EST Called pt. Via [employer] religious studies professor [phone] Eduardo. Pt. States that she has a [...] phone. Please reach out to pt. With Japanese speaking another time to see what her [...] EST Office Visit [facility] MEDICINE [address] [place] [address] Name, MD Nitin [address] [place] [address] documented as of this encounter Visit Diagnoses Not on filedocumented in this encounter Care Teams Freight Car Cleaner Relationship Specialty Start Date End Date Name, MD Nitin 230 [place] [address] PCP - General Family Medicine 08/26/17 [facility] 09/01/24 documented as of this encounter
--- OUTSIDE RECORDS SUMMARY | 2025-09-18 14:10 | XMS_ITS | Encounter Summary ---
Author Organization [employer] Address 75 [facility] 7[address] [place] [address] Care Team Providers Care Aerodynamicist Name Role Phone Name, Nitin PIKE Primary Care Provider [phone] Reason for Visit * Reason Onset Date Comments Order(s) 12/09/2023 Encounter Details Date Type Department Care Team ([facility] Contact Info) Description 12/09/2023 Telephone [facility] MEDICINE 230 [place], [place] [phone] Name, MD Nitin [address] [place], [place] [phone] Order(s) Social History Tobacco Use Types Packs/Day [...] orders. If any questions please contact Noreen [phone]. documented in this encounter Plan of Treatment Upcoming Encounters Date Type Department Care Team (Late st Contact Info) Description 11/07/2025 10:00 AM EST Office Visit [facility] MEDICINE [address] [place] [address] Name, MD Nitin [address] [place] [address] documented as of this encounter Visit Diagnoses Not on filedocumented in this encounter Additional Health Concerns Assessment Noted Time PHQ-9 Depression Total Score: 12 023 9:37 AM EDT documented as of this encounter Care Teams Aerodynamicist Relationship Specialty Start Date End Date Name, MD Nitin [address] [place] [address] PCP - General Family Medicine 08/26/17 [facility] 09/01/24 documented as of this encounter
--- OUTSIDE RECORDS SUMMARY | 2025-09-18 14:10 | XMS_ITS | Encounter Summary ---
Author Organization [employer] Address 75 [facility] 7[address] [place] [address] Care Team Providers Care Cloth Stock Sorter Name Role Phone Name, Nitin PIKE Primary Care Provider [phone] Encounter Details Date Type Department Care Team (Late st Contact Info) Description 11/06/2022 Orders Only [facility]S [address] [place], [place] [phone] Lisha Kelly LPN Social History Tobacco Use [...] 10:00 AM EST Office Visit [facility] MEDICINE 230 [place] [address] NameNitin MD [address] [place] [address] documented as of this encounter Visit Diagnoses Not on filedocumented in this encounter Care Teams Cloth Stock Sorter Relationship Specialty Start Date End Date Nitin Echevarria MD [address] [place] [address] PCP - General Family Medicine 08/26/17 [facility] 09/01/24 documented as of this encounter
--- OUTSIDE RECORDS SUMMARY | 2025-09-18 14:10 | XMS_ITS | Encounter Summary ---
Author Organization [employer] Address 75 [facility] [address] [place] [address] Care Team Providers Care Metal Lather Name Role Phone Name, Nitin PIKE Primary Care Provider [phone] Reason for Visit * Reason Comments Med Refill Encounter Details Date Type Department Care Team (Late st Contact Info) Description 08/16/2024 Refill [facility]S [address] [place], [place] [phone] Name, MD Nitin [address] [place] [address] Heartburn Social History Tobacco Use Types Packs/Day [...] [facility] MEDICINE [address] [place] [address] NameNitin MD [address] [place] [address] documented as of this encounter Visit Diagnoses Diagnosis Heartburn documented in this encounter Additional Health Concerns Assessment Noted Time PHQ-9 Depression Total Score: 6 02/13/20 24 9:14 AM EDT documented as of this encounter Care Teams Metal Lather Relationship Specialty Start Date End Date NameNitin MD [address] [place] [address] PCP - General Family Medicine 08/26/17 [facility] 09/01/24 documented as of this encounter
--- OUTSIDE RECORDS SUMMARY | 2025-09-18 14:10 | XMS_ITS | Encounter Summary ---
Author Organization [employer] Address 75 [facility] 7[address] [place] [address] Care Team Providers Care Wire Drawing Machine Tender Name Role Phone Name, Nitin PIKE Primary Care Provider [phone] Reason for Visit * Reason Onset Date Comments Call Back Request 03/14/2025 Encounter Details Date Type Department Care Team ([facility] st Contact Info) Description 03/14/2025 Telephone [facility] MEDICINE 230 [place], [place] [phone] Name, MD Nitin 230 [place] [address] Call Back Request Social History Tobacco Use [...] is your housing situation today? I have cluas rawls 06/14/[address] you [...] EST Office Visit [facility] MEDICINE [address] [place] [address] Name, MD Nitin [address] [place] [address] documented as of this encounter Visit Diagnoses Not on filedocumented in this encounter Additional Health Concerns Assessment Noted Time PHQ-9 Depression Total Score: 6 02/13/20 9:14 AM EDT documented as of this encounter Care Teams Wire Drawing Machine Tender Relationship Specialty Start Date End Date Name, MD Nitin [address] [place] [address] PCP - General Family Medicine 08/26/17 [facility] 09/01/24 documented as of this encounter
--- OUTSIDE RECORDS SUMMARY | 2025-09-18 14:10 | XMS_ITS | Encounter Summary ---
Author Organization [employer] Address 75 [facility] 7[address] [place] [address] Care Team Providers Care Reproducer Name Role Phone Name, Nitin PIKE Primary Care Provider [phone] Reason for Visit * Reason Onset Date Comments ER Follow-up 05/04/2024 Encounter Details Date Type Department Care Team ([facility] [address] Contact Info) Description 05/04/2024 Telephone [facility] MEDICINE [address] [place], [place] [phone] Name, MD Nitin 230 [place] [address] ER Follow-up Social History Tobacco Use Types [...] 11:01 AM EDT T/C to pt. Through [employer] [place] - [id number] for below message, No answer. LVM to call back [phone] . * Telephone Encounter - Adithya Solorzano - 05/04/2024 9:35 AM EDT Noreen with [facility] calling to report ED visit on : Date: 04/28 Hospital: [facility] Seen for: UTI, Nausea, Rash. Noreen advised will be forwarding message to team nurses. Please contact pt at [phone]. documented in this encounter Plan of Treatment Upcoming Encounters Date Type Department Care Team (Late st Contact Info) Description 11/07/2025 10:00 AM EST Office Visit [facility] MEDICINE [address] [place] [address] Name, MD Nitin [address] [place] [address] documented as of this encounter Visit Diagnoses Not on filedocumented in this encounter Additional Health Concerns Assessment Noted Time PHQ-9 Depression Total Score: 6 02/13/20 9:14 AM EDT documented as of this encounter Care Teams Reproducer Relationship Specialty Start Date End Date Name, MD Nitin [address] [place] [address] PCP - General Family Medicine 08/26/17 [facility] 09/01/24 documented as of this encounter
--- OUTSIDE RECORDS SUMMARY | 2025-09-18 14:10 | XMS_ITS | Encounter Summary ---
Author Organization [employer] Address 75 [facility] [address] [place] [address] Care Team Providers Care Table Games Shift Manager Name Role Phone Name, Nitin PIKE Primary Care Provider [phone] Reason for Visit * Reason Comments Med Refill Encounter Details Date Type Department Care Team ([facility] st Contact Info) Description 06/28/2024 Refill [facility] [address] [place] [address] Mel Anguiano FNP [address] [place] [address] Social History Tobacco Use Types Packs/Day Years [...] [facility] MEDICINE [address] [place] [address] Name, MD Nitin [address] [place] [address] documented as of this encounter Visit Diagnoses Not on filedocumented in this encounter Additional Health Concerns Assessment Noted Time PHQ-9 Depression Total Score: 6 02/13/20 24 9:14 AM EDT documented as of this encounter Care Teams Table Games Shift Manager Relationship Specialty Start Date End Date Name, MD Nitin [address] [place] [address] PCP - General Family Medicine 08/26/17 [facility] 09/01/24 documented as of this encounter
--- OUTSIDE RECORDS SUMMARY | 2025-09-18 14:10 | XMS_ITS | Encounter Summary ---
Author Organization [employer] Address 75 [facility] [address] [place] [address] Care Team Providers Care Medical Appointment Scheduler Name Role Phone Name, Nitin PIKE Primary Care Provider [phone] Reason for Visit * Reason Onset Date Comments Durable Medical Equipment 12/09/2023 Encounter Details Date Type Department Care Team ([facility] st Contact Info) Description 12/09/2023 Telephone [facility] MEDICINE 230 [place], [place] [phone] Name, MD Nitin 230 [place], [place] [phone] Durable Medical Equipment Social History Tobacco Use [...] 10:11 AM EST DME rx faxed to [facility] as requested. RN will consult with S nurse and provide referral. * Telephone Encounter - Fozia Jacob RN - 12/09/2023 4:58 PM EST Call returned to [facility] at [facility] [phone] ext. [phone]. [facility] states that [facility] attempted to provide PT at home but pt refused. [facility] pt is requesting outpatient PT. [facility] pt is seeing a counselor more regularly and has agreed to VNA referral. Reports pt has had 3 falls in the past 2 months. [facility] states [facility] no longer has visiting nurses. [facility] recommends [employer] or [facility] for VNA referral. [facility] also requesting DME rx for rollator walker and a straight cane. Requests that DME rx be faxed to [phone]. Advised requests will be sent to pcp. * Telephone Encounter - Adithya Solorzano - 12/09/2023 4:25 PM EST Tc from [facility] requesting DME: Rollator walker . documented in this encounter Plan of Treatment Upcoming Encounters Date Type Department Care Team (Late st Contact Info) Description 11/07/2025 10:00 AM EST Office Visit [facility] MEDICINE [address] [place] [address] Name, MD Nitin [address] [place] [address] documented as of this encounter Visit Diagnoses Not on filedocumented in this encounter Additional Health Concerns Assessment Noted Time PHQ-9 Depression Total Score: 12 023 9:37 AM EDT documented as of this encounter Care Teams Medical Appointment Scheduler Relationship Specialty Start Date End Date Name, MD Nitin [place] [address] PCP - General Family Medicine 08/26/17 [facility] 09/01/24 documented as of this encounter
--- OUTSIDE RECORDS SUMMARY | 2025-09-18 14:10 | XMS_ITS | Encounter Summary ---
Author Organization [employer] Address 75 [facility] [address] [place] [address] Care Team Providers Care Director Medical Science Name Role Phone Name, Nitin PIKE Primary Care Provider [phone] Reason for Visit * Reason Comments Med Refill Encounter Details Date Type Department Care Team (Late st Contact Info) Description 08/17/2025 Refill [facility] MEDICINE [address] [place], [place] [phone] Miryam Riley NP [address] [place] [address] Hypertension, unspecified type Social History Tobacco Use [...] [facility] MEDICINE [address] [place] [address] NameNitin MD 230 [place] [address] documented as of this encounter Visit Diagnoses Diagnosis Hypertension, unspecified type documented in this encounter Additional Health Concerns Assessment Noted Time PHQ-9 Depression Total Score: 3 04/29/20 25 9:41 AM EDT documented as of this encounter Care Teams Director Medical Science Relationship Specialty Start Date End Date Name, MD Nitin [address] [place] [address] PCP - General Family Medicine 08/26/17 [facility] 09/01/24 documented as of this encounter
--- OUTSIDE RECORDS SUMMARY | 2025-09-18 14:10 | XMS_ITS | Encounter Summary ---
Author Organization [employer] Address [address] [place] [address] Care Team Providers Care In Home Nanny Name Role Phone Name, Nitin PIKE Primary Care Provider [phone] Reason for Visit * Reason Onset Date Comments ER Follow-up 05/31/2024 Encounter Details Date Type Department Care Team ([facility] Contact Info) Description 05/31/2024 Telephone [facility] [address] [place], [place] [phone] Name, MD Nitin [address] [place] [address] ER Follow-up Social History Tobacco Use Types [...] 05/31/2024 1:36 PM EDT T/C to Pat ([facility]) [phone] for below message, no answer. LVM to call back on [phone]. * Telephone Encounter - Melany Santos RN - 05/31/2024 1:32 PM EDT DAVID T/C [place]. Through [place] - [id number] for below message, pt. Had recent fall and ED visit at [facility]. RN will request GRACE piedra from [facility]. Pt. Is doing good, states I am tired andsleeping. Pt. Dose not has any question or concern right now. Pt. Already has HDF apt. Schedule on 06/10/2024. Pt. Advised to give call to [facility] if any questions or concerns. Pt. Verbally agreed and understood. Please review and advise if needed. * Telephone Encounter - Adithya Solorzano - 05/31/2024 12:50 PM EDT Patient calling to report ED visit on : Date: 05/26 Hospital: [facility] Seen for: Fall, Back Pain Pat stated pt is requesting a sooner apt with pcp due to recent ER visit. PT is also requesting order for PT services for to go along with [facility]. documented in this encounter Plan of Treatment Upcoming Encounters Date Type Department Care Team (Late st Contact Info) Description 11/07/2025 10:00 AM EST Office Visit [facility] [address] [place] [address] Name, MD Nitin [address] [place] [address] documented as of this encounter Visit Diagnoses Not on filedocumented in this encounter Additional Health Concerns Assessment Noted Time PHQ-9 Depression Total Score: 6 02/13/20 24 9:14 AM EDT documented as of this encounter Care Teams In Home Nanny Relationship Specialty Start Date End Date Name, MD Nitin [address] [place] [id number] PCP - General Family Medicine 08/26/17 [facility] 09/01/24 documented as of this encounter
--- OUTSIDE RECORDS SUMMARY | 2025-09-18 14:10 | XMS_ITS | Encounter Summary ---
Author Organization [employer] Address [address] [facility] [place] [address] Care Team Providers Care Denitrator Operator Name Role Phone Name, Nitin PIKE Primary Care Provider [phone] Reason for Visit * Reason Comments Med Refill Encounter Details Date Type Department Care Team (Late Contact Info) Description 03/02/2023 Refill [facility] [address] [place] [phone] Karely Patiño MD [address] [place] [address] [phone] Social History Tobacco Use Types Packs/Day Years [...] 10:00 AM EST Office Visit [facility] [address] [place] [phone] Name, MD Nitin [address] [place] [phone] documented as of this encounter Visit Diagnoses Not on filedocumented in this encounter Care Teams Denitrator Operator Relationship Specialty Start Date End Date Name, MD Nitin [address] [place] [address] PCP - General Family Medicine 08/26/17 [facility] 09/01/24 documented as of this encounter
--- OUTSIDE RECORDS SUMMARY | 2025-09-18 14:10 | XMS_ITS | Clinical Summary ---
Author Organization [employer] Address [address] [place] [address] [address] [place] [address] Care Team Providers Care Manager Shell Name Role Phone Name, Nitin PIKE Primary Care Provider [phone] Allergies Active Allergy Reactions Criticality Noted Date [...] MOUTH EVERY 8 HOURS NEEDED FOR PAIN (THAI LABEL) 90 tablet 08/09/20 25 Active omeprazole [...] EST): Symptomatic measures Rest Major neurocognitive disorder ([facility]) 11/02/20 Acute otitis media 04/22/2024 Diarrhea 02/12/2024 [...] precautions advised Stage 3a chronic kidney disease ([facility]/HCC) 2022 Headache 01/02/2023 Overview (12/18/2023): [...] because it calms her down. I called [facility] pharmacy to attempt a med rec they instructed me that she is on med box and one week at a time prescriptions because she would break into her med boxes to take more Ambien or xanax. She is being seen by Izzy Perea at [facility]. He is aware of her [...] left I received a call from the [facility] pharmacy instructing me that she [...] Encounters Date Type Department Care Team Description 09/17/2025 Orders Only GENERIC EXTERNAL DATA DEPARTMENT Provider, Generic External Data 09/09/2025 Telephone [facility] [address] [place] [phone] Thea Warren, E [employer] Results 09/06/2025 1:30 PM EDT Office Visit [facility] [address] [facility] [place] [address] Thea Warren, E [employer] Acute pain of left knee (Primary Dx); Urinary frequency; Acute cystitis without hematuria 09/06/2025 Orders Only [facility] [place] [address] Thea Warren, E [employer] MANAGER 09/06/2025 Travel 09/05/2025 Telephone [facility] [place] [address] Nitin Echevarria MD Chart Prep 09/03/2025 Orders Only GENERIC EXTERNAL DATA DEPARTMENT Provider, Generic External Data 08/30/2025 Patient Outreach [facility] [address] [place] [address] Nitin Echevarria MD Pre-visit Planning ([facility] unable to reach) 08/24/2025 Telephone [facility] [place] [address] Nitin Echevarria MD Referral 08/24/2025 Telephone [facility] [place] [address] Nitin Echevarria MD Verbal Order 08/22/2025 Orders Only [facility] External Provider, [facility] 08/18/2025 Orders Only GENERIC EXTERNAL DATA DEPARTMENT Provider, Generic External Data 08/17/2025 Refill [facility] [place] [address] Nitin Echevarria MD 08/17/2025 Refill [facility] [address] [place] [address] Miryam Riley NP Hypertension, unspecified type 08/15/2025 Refill [facility] [address] [place] [address] Nitin Echevarria MD Heartburn 08/14/2025 Refill [facility] [address] [place] [address] Nitin Echevarria MD Heartburn; Vitamin D deficiency 08/09/2025 11:15 AM EDT Office Visit [facility] [address] [place] [address] Nitin Echevarria MD Generalized anxiety disorder with panic attacks (Primary Dx); Encounter for immunization; Chronic bilateral low back pain without sciatica 08/09/2025 Travel 08/01/2025 Refill [facility] [address] [place] [address] Nitin Echevarria MD Vitamin D deficiency 07/28/2025 Orders Only GENERIC EXTERNAL DATA DEPARTMENT Provider, Generic External Data 07/27/2025 Orders Only [facility] External Provider, [facility] 07/26/2025 Orders Only GENERIC EXTERNAL DATA DEPARTMENT Provider, Generic External Data 07/26/2025 Telephone [facility] [address] [place] [address] Nitin Echevarria MD ER Follow-up 07/25/2025 Refill [facility] [address] [place] [address] Nitin Echevarria MD 07/25/2025 Refill [facility] [address] [place] [address] Nitin Echevarria MD 07/18/2025 Refill [facility] [address] [place], [place] [phone] Miryam Riley NP 07/18/2025 Orders Only GENERIC EXTERNAL DATA DEPARTMENT Provider, Generic External Data 07/17/2025 Refill [facility] [address] [place] [address] Nitin Echevarria MD Hypertension, unspecified type 07/07/2025 8:40 AM EDT Office Visit [facility] [address] [address] Zach Javier MD Acute conjunctivitis of left eye, unspecified acute conjunctivitis type (Primary Dx) 07/07/2025 Travel 07/01/2025 9:20 AM EDT [facility] [address] [address] Zach Javier MD Pedal edema (Primary Dx) 07/01/2025 Travel 06/28/2025 Refill [facility] [address] [place] [address] Name, MD Nitin 06/27/2025 Refill [facility] [address] [place] [address] Name, MD Nitin Vitamin D deficiency 06/19/2025 Refill [facility] [address] [place] [address] Name, MD Nitin Prediabetes from Last 3 Months Immunizations Immunization Administration [...] Office Visit [facility] [address] [place] [address] Name, MD Nitin [address] [place] [address] Health Maintenance Due Date Last Done Comments [...] WHOLE BLOOD Routine 09/17/2025 7:24 AM EST CULTURE, URINE, ROUTINE Routine 09/06/2025 2:19 PM [...] Recently Relevant to Health Maintenance Results * Glucose, Whole Blood (09/17/2025 7:24 AM EST) Glucose, Whole Blood 98 60 - 115 mg/dL [facility] Comment:METER #: [id number] 09/17/2025 7:24 AM EST 09/17/2025 7:28 AM EST us Generic External Data Provider LAB BLOOD ORDERAB LES Final Result [facility] [address] [place] [address] [phone] * Culture, Urine, Routine (09/06/2025 2:19 PM EDT) Only the most recent of4 resultswithin the time period is included. Urine Urine specimen obtained by clean catch procedure / Unknown 09/06/2025 2:19 PM EDT 09/06/2025 6:45 PM EDT Comment:UACC Narrative [facility] - 09/08/2025 3:37 PM EDT Strep agalactiae (Grp B) Quant 10,000 to 50,000 cfu/mL Susc N/A Susceptibility not routinely performed on this isolate. Specimen Source: Urine clean catch [facility] MICROBIOLOGY - GENERAL ORD ERABLES Final Result [facility] [address] [place] [phone] * POCT Urinalysis (09/06/2025 1:32 PM [...] Urine (Urine, Random) 09/06/2025 1:32 PM EDT [facility] POINT OF CARE TEST ENTER/EDIT ORDERABLES Final Result * CT Cervical Spine w/o Contrast (09/03/2025 2:51 PM EDT) Anatomical Region Laterality Modality Spine, C-spine Computed Tomogra phy 09/03/2025 2:51 PM EDT Narrative 09/03/2025 2:52 PM EDT [address] [address] [address] Scan Report Signed Patient: Noreen Wing MR#: [id number] : 1945 Acct:[id number] Age/Sex: 79 / F ADM Date: 09/03/25 Loc: HO.ED Attending Dr: Ordering Physician: Dyana Andrews Date of Service: 09/03/25 Procedure(s): CT cervical spine wo IV con Accession Number(s): [id number] cc: Dyana Andrews; Name,Nitin PIKE Report Number: [id number]: Total DLP = 1246.00 mGy-cm Reason for [...] in OV> 09/03/251450 DD/ 50 TD/TT: 09/03/251450 Legal Internship: Procedure Note Donotuseinterpreter, Image - 09/03/[address] [place] [address] [address] Scan Report Signed Patient: Jennifer Wing#: [id number] : 1945cct:[id number] Age/Sex: 79 / FADM Date: 09/03/25 Loc: HO.ED Attending Dr: Ordering Physician: Dyana Andrews Date of Service: 09/03/25 Procedure(s): CT cervical spine wo IV con Accession Number(s): [id number] cc: Dyana Andrews; Name,Nitin PIKE Report Number: [id number]: Total DLP = 1246.00 mGy-cm Reason for [...] in OV> 09/03/251450 DD/ 50 TD/TT: 09/03/251450 Legal Internship: [facility] External Provider IMG CT PROCEDURES Edited Result - Final * CT Head w/o Contrast (09/03/2025 2:51 PM EDT) Anatomical Region Laterality Modality Head, Neck Computed Tomogra phy 09/03/2025 2:51 PM EDT Narrative 09/03/2025 2:52 PM EDT [place] [address] CT Scan Report Signed Patient: Noreen Wing MR#: [id number] : 1945 Acct:[id number] Age/Sex: 79 / F ADM Date: 09/03/25 Loc: HO.ED Attending Dr: Ordering Physician: Dyana Andrews Date of Service: 09/03/25 Procedure(s): CT head/brain wo IV con Accession Number(s): [id number] cc: Dyana Andrews; Name,Nitin PIKE Report Number: [id number]: Total DLP = 0.00 mGy-cm Reason for [...] in OV> 09/03/251451 DD/ 50 TD/TT: 09/03/251450 Legal Internship: Procedure Note Donotuseinterpreter, Image - 09/03/[address] [address] [address] Scan Report Signed Patient: Noreen WingMR#: [id number] : 1945cct:[id number] Age/Sex: 79 / FADM Date: 09/03/25 Loc: HO.ED Attending Dr: Ordering Physician: Dyana Andrews Date of Service: 09/03/25 Procedure(s): CT head/brain wo IV con Accession Number(s): [id number] cc: Dyana Andrews; Name,Nitin PIKE Report Number: [id number]: Total DLP = 0.00 mGy-cm Reason for [...] in OV> 09/03/251451 DD/ 50 TD/TT: 09/03/251450 Legal Internship: [facility] External Provider IMG CT PROCEDURES Edited Result - Final * High Sensitivity Troponin I (09/03/2025 2:08 PM EDT) Only the most recent of5 resultswithin the time period is included. TROPONIN I HIGH SENSITIVITY <2.7 <3.5 - 17.0 ng/L [facility] Comment:The Mckeon high sens itivity Troponin-I results should beused in conjunction with other diagnostic information suchas ECG, clinical observations and information, and patientsymptoms to aid in the diagnosis of [place]. 09/03/2025 2:08 PM EDT 09/03/2025 2:12 PM EDT us Generic External Data Provider LAB BLOOD ORDERAB LES Final Result [facility] [address] [place] [address] [phone] * (ABNORMAL) CBC auto differential (09/03/2025 2:08 PM EDT) Only the most recent of4 resultswithin the time period is included. White Blood Count 7.5 4.8 - 10.8 X10*3/uL [facility] Red Blood Count 3.89(L) 4.20 - 5.50 X10*6/uL [facility] Hemoglobin 10.9(L) 12.0 - 16.0 g/dl [facility] Hematocrit 32.7(L) 37.0 - 47.0 % [facility] Mean Corpuscular Volume 84.1 80.0 - 98.0 fL [facility] Mean Corpuscular Hemoglobin 28.0 27.0 - 33.0 pg [facility] Mean Corpuscular HGB Conc 33.3 31.0 - 35.0 g/dl [facility] Red Cell Distribution Width 14.0 11.0 - 16.0 % [facility] Platelet Count 278 160 - 400 X10*3/uL [facility] Mean Platelet Volume 8.4(L) 9.4 - 12.3 fL [facility] Neutrophils Percent Auto 65.2 45 - 73 % [facility] Imm Gran Pct Auto 0.4 0.0 - 0.4 % [facility] Lymphocytes Percent Auto 21.8 20 - 40 % [facility] Monocytes Percent Auto 10.5 2 - 11 % [facility] Eosinophils Percent Auto 1.6 0 - 4 % [facility] Basophils Percent Auto 0.5 0 - 2 % [facility] NRBC Pct Auto 0.0 0.0 - 0.2 /100WBC [facility] Neutrophils Absolute Auto 4.9 2.0 - 8.3 x10*3/uL [facility] Imm Gran Abs Auto 0.03 0.00 - 0.03 X10*3/uL [facility] Lymphocytes Absolute Auto 1.6 1.2 - 4.9 X10*3/uL [facility] Monocytes Absolute Auto 0.8 0.1 - 1.2 X10*3/uL [facility] Eosinophils Absolute Auto 0.1 0.0 - 0.4 X10*3/uL [facility] Basophils Absolute Auto 0.0 0.0 - 0.2 X10*3/uL [facility] NRBC Abs Auto 0.000 0.0 - 0.012 X10*3/uL [facility] 09/03/2025 2:08 PM EDT 09/03/2025 2:12 PM EDT Generic External Data Provider LAB BLOOD ORDERAB LES Final Result Performing Organization Address [facility] Co de Phone Number [facility] [address] [place] [phone] * Magnesium (09/03/2025 2:08 PM EDT) Pathologist [facility] Magnesium 2.0 1.6 - 2.6 mg/dL [facility] 09/03/2025 2:08 PM EDT 09/03/2025 2:12 PM EDT [employer] External Data Provider LAB BLOOD ORDERAB LES Final Result Performing Organization Address [facility] Co de Phone Number [facility] [address] [place], [place] [phone] * (ABNORMAL) Comprehensive Metabolic Panel (09/03/2025 2:08 PM EDT) Only the most recent of3 resultswithin the time period is included. Sodium 139 135 - 145 mmol/L [facility] Potassium 4.1 3.3 - 5.1 mmol/L [facility] Chloride 105 96 - 108 mmol/L [facility] Carbon Dioxide 28 22 - 29 mmol/L [facility] Anion Gap 10(L) 12 - 20 [facility] Urea Nitrogen (BUN) 24(H) 9 - 16 mg/dL [facility] Creatinine, Serum 1.04 0.5 - 1.4 mg/dL [facility] Creatinine Clr Calc Pharmacy 45.7 [facility] Comment:Provided height and weight: 162.56 cm,88.7 kg.eGFR (calculated from the MDRD study equation) and eCrCl(calculated from the Cockcroft-Gault equation) are based ondifferent parameters and may not yield comparable results.If eCrCl result is absurd, please check patient'sheight/weight. Estimated Glomerular Filt Rate 51 [facility] Comment:Chronic Kidney Disea se: Estimated GFR < 60 mL/min/1.51o7Zifdpm Kidney Disease: Estimated GFR < 15 mL/min/1.73m2 Glucose 105 60 - 115 mg/dL [facility] Calcium 8.9 8.4 - 10.2 mg/dL [facility] Bilirubin, Total 0.2 0.0 - 1.0 mg/dL [facility] Aspartate Amino Transferase 27 5 - 31 U/L [facility] Alanine Aminotransferase 18 0 - 31 U/L [facility] Total Protein 7.7 6.5 - 8.0 g/dL [facility] Albumin Level 4.0 3.5 - 5.0 g/dL [facility] Alkaline Phosphatase 81 39 - 117 U/L [facility] 09/03/2025 2:08 PM EDT 09/03/2025 2:12 PM EDT us Generic External Data Provider LAB BLOOD ORDERAB LES Final Result [facility] [address] [place] [phone] * XR Knee 4+ Views Left (08/22/2025 8:16 AM EDT) Anatomical Region Laterality Modality Lower Extremities, Knee Left Radiogra phic Imaging 08/22/2025 8:16 AM EDT Narrative 08/22/2025 8:17 AM EDT [address] [address] XRay Report Signed Patient: Noreen Wing MR#: [id number] : 1945 Acct:[id number] Age/Sex: 79 / F ADM Date: 08/22/25 Loc: HO.ED Attending Dr: Ordering Physician: Sarai Layton Date of Service: 08/22/25 Procedure(s): XR knee LT 4V Accession Number(s): [id number] cc: [facility]; Sarai Layton Reason for Exam: atraumatic [...] in OV> 08/22/25816 DD/ 5 TD/TT: 08/22/25815 Legal Internship: Procedure Note Donrogersinterpreter, Image - 08/22/[address] [address] XRay Report Signed Patient: Noreen WingMR#: [id number] : 1945cct:[id number] Age/Sex: 79 / FADM Date: 08/22/25 Loc: HO.ED Attending Dr: Ordering Physician: Sarai Layton Date of Service: 08/22/25 Procedure(s): XR knee LT 4V Accession Number(s): [id number] cc: [facility]; Sarai Layton Reason for Exam: atraumatic [...] in OV> 08/22/25816 DD/ 5 TD/TT: 08/22/25815 Legal Internship: [facility] External Provider IMG XR PROCEDURES Edited Result - Final * (ABNORMAL) Basic Metabolic Panel (08/18/2025 8:44 AM EDT) Only the most recent of2 resultswithin the time period is included. Sodium 137 135 - 145 mmol/L [facility] Potassium 4.6 3.3 - 5.1 mmol/L [facility] Chloride 101 96 - 108 mmol/L [facility] Carbon Dioxide 30(H) 22 - 29 mmol/L [facility] Anion Gap 11(L) 12 - 20 [facility] Urea Nitrogen (BUN) 19(H) 9 - 16 mg/dL [facility] Creatinine, Serum 0.94 0.5 - 1.4 mg/dL [facility] Estimated Glomerular Filt Rate 57 [facility] Comment:Chronic Kidney Disea se: Estimated GFR < 60 mL/min/1.53m3Dwuwxz Kidney Disease: Estimated GFR < 15 mL/min/1.73m2 Glucose 94 60 - 115 mg/dL [facility] Calcium 9.3 8.4 - 10.2 mg/dL [facility] 08/18/2025 8:44 AM EDT 08/18/2025 8:44 AM EDT us Generic External Data Provider LAB BLOOD ORDERAB LES Final Result Performing Organization Address City/State/[facility] Co de Phone Number [facility] [address] [place] [phone] * CTA Chest PE Protocal (07/28/2025 8:35 PM EDT) Only the most recent of2 resultswithin the time period is included. Anatomical Region Laterality Modality Body, Chest Computed Tomogra phy 07/28/2025 8:35 PM EDT Narrative 07/28/2025 8:36 PM EDT [address] [address] [address] Scan Report Signed Patient: Noreen Wing MR#: [id number] : 1945 Acct:[id number] Age/Sex: 79 / F ADM Date: 07/28/25 Loc: .ED Attending Dr: Ordering Physician: Cuco Amador Date of Service: 07/28/25 Procedure(s): CT angio chest PE protocol Accession Number(s): [id number] cc: Cuco Amador; Name,Nitin PIKE Report Number: [id number]: Total DLP = 311.00 mGy-cm Reason for [...] in OV> 07/28/252034 DD/ 34 TD/TT: 07/28/252034 Legal Internship: Procedure Note Donotuseinterpreter, Image - 07/28/[address] [place] [address] [address] Scan Report Signed Patient: Jennifer Wing#: [id number] : 1945cct:[id number] Age/Sex: 79 / FADM Date: 07/28/25 Loc: .ED Attending Dr: Ordering Physician: Cuco Amador Date of Service: 07/28/25 Procedure(s): CT angio chest PE protocol Accession Number(s): [id number] cc: Cuco Amador; Name,Nitin PIKE Report Number: [id number]: Total DLP = 311.00 mGy-cm Reason for [...] in OV> 07/28/252034 DD/ 34 TD/TT: 07/28/252034 Legal Internship: us [facility] External Provider IMG CT PROCEDURES Final Result * (ABNORMAL) Urinalysis, Complete, with Reflex to Culture (07/28/2025 8:06 PM EDT) Only the most recent of3 resultswithin the time period is included. Color Urine Yellow [facility] Appearance Urine Clear [facility] PH 6.0 5.0 - 9.0 [facility] Glucose Urine UA Negative Negative mg/dL [facility] Urine Blood Negative Negative [facility] Specific Royal - Urine >=1.030(H) 1.005 - 1.025 [facility] Urine Protein Negative Neg-Trace mg/dL [facility] Urine Ketones Negative Negative mg/dL [facility] Nitrite Urine Negative Negative [facility] Leukocyte Esterase Urine Small (1+)(A) Negative [facility] RBC Urine 0-2 0 - 2 /HPF [facility] Urine WBC 6-10(A) 0 - 5 /HPF [facility] Urine Squamous Epithelial Cell 0-2 0 - 2 /HPF [facility] Urine Bacteria None Seen None Seen [facility] Hyaline Casts, Urine 0-2 0 - 2 /LPF [facility] 07/28/2025 8:06 PM EDT 07/28/2025 8:12 PM EDT Narrative [facility] - 07/28/2025 9:26 PM EDT [id number], [employer] Generic External Data Provider LAB URINE ORDERAB LES Final Result [facility] [address] [place] [phone] * CT Abdomen Pelvis w/ Contrast (07/28/2025 8:01 PM EDT) Anatomical Region Laterality Modality Body, Pelvis, Abdomen Computed T omography 07/28/2025 8:01 PM EDT Narrative 07/28/2025 8:03 PM EDT [address] [address] [address] Scan Report Signed Patient: Noreen Wing MR#: [id number] : 1945 Acct:[id number] Age/Sex: 79 / F ADM Date: 07/28/25 Loc: HO.ED Attending Dr: Ordering Physician: Cuco Amador Date of Service: 07/28/25 Procedure(s): CT abdomen pelvis w IV con Accession Number(s): [id number] cc: Cuco Amador; Name,Nitin PIKE Report Number: [id number]: Total DLP = 539.64 mGy-cm Reason for [...] in OV> 07/28/252001 DD/ 00 TD/TT: 07/28/252000 Legal Internship: Procedure Note Donrogersinterpreter, Image - 07/28/[address] [address] [address] Scan Report Signed Patient: Noreen WingMR#: [id number] : 3Acct:[id number] Age/Sex: 79 / FADM Date: 07/28/25 Loc: HO.ED Attending Dr: Ordering Physician: Cuco Amador Date of Service: 07/28/25 Procedure(s): CT abdomen pelvis w IV con Accession Number(s): [id number] cc: Cuco Amador; Name,Nitin PIKE Report Number: [id number]: Total DLP = 539.64 mGy-cm Reason for [...] in OV> 07/28/252001 DD/ 00 TD/TT: 07/28/252000 Legal Internship: [facility] External Provider IMG CT PROCEDURES Final Result * Partial Thromboplastin Time, Activated (APTT) (07/28/2025 5:01 PM EDT) Partial Thromboplastin Time 31.4 26.7 - 34.1 SEC [facility] 07/28/2025 5:01 PM EDT 07/28/2025 5:05 PM EDT us Generic External Data Provider LAB BLOOD ORDERAB LES Final Result Performing Organization Address [facility] Co de Phone Number [facility] [address] [place] [address] [phone] * (ABNORMAL) Prothrombin Time-INR (07/28/2025 5:01 PM EDT) Prothrombin Time 14.3(H) 10.9 - 12.4 SEC [facility] INTERNATIONAL NORM RATIO 1.2(H) 0.9 - 1.1 [facility] Comment:INTERNATIONAL NORMAL IZED [...] ORDERAB LES Final Result Performing Organization Address [facility] Co de Phone Number [facility] [address] [place] [phone] * Lipase (07/28/2025 5:01 PM EDT) Lipase 31 8 - 78 U/L [facility] 07/28/2025 5:01 PM EDT 07/28/2025 5:05 PM EDT us Generic External Data Provider LAB BLOOD ORDERAB LES Final Result Performing Organization Address City/[facility]/ZIP Co de Phone Number [facility] [address] [place] [phone] * POCT HGB A1C (01/10/2025 11:02 [...] LDL-C. Jack SS et al. JITENDRA. 2013;310(19): 2725-4307 (http://education.[employer].com/faq/BWA310) Non-HDL Cholesterol 88 <130 mg/dL (calc) CONVERTED [...] Most Recently Relevant to Health Maintenance Insurance [employer] (HMO D-SNP) SARA PHILLIPS [id number] Care Teams Manager Shell Relationship Specialty Start Date End Date Name, MD Nitin [address] [place] [phone] PCP - General Family Medicine 08/26/17 [facility] 09/01/24
--- OUTSIDE RECORDS SUMMARY | 2025-09-18 14:10 | XMS_ITS | Encounter Summary ---
Author Organization [employer] Address [address] [facility] [address] [place] [address] Care Team Providers Care Brush Or Broom Cutter Name Role Phone Name, Nitin PIKE Primary Care Provider [phone] Reason for Visit * Reason Onset Date Comments Med Refill 11/08/2024 Encounter Details Date Type Department Care Team ([facility] st Contact Info) Description 11/08/2024 Telephone [facility] MEDICINE [address] [place], [place] [phone] Name, MD Nitin [address] [place] [address] Med Refill Social History Tobacco Use Types [...] be sent to: [facility] - [place], [place] - [address] [facility] documented in this encounter Plan of Treatment Upcoming Encounters Date Type Department Care Team ([facility] st Contact Info) Description 11/07/2025 10:00 AM EST Office Visit [facility] MEDICINE [address] [place] [address] Name, MD Nitin [address] [place] [address] documented as of this encounter Visit Diagnoses Not on filedocumented in this encounter Additional Health Concerns Assessment Noted Time PHQ-9 Depression Total Score: 6 02/13/20 24 9:14 AM EDT documented as of this encounter Care Teams Brush Or Broom Cutter Relationship Specialty Start Date End Date Name, MD Nitin [address] [place] [address] PCP - General Family Medicine 08/26/17 [facility] 09/01/24 documented as of this encounter
--- OUTSIDE RECORDS SUMMARY | 2025-09-18 14:10 | XMS_ITS | Encounter Summary ---
Author Organization [employer] Address [address] [facility] [address] [place] [address] Care Team Providers Care Electric Truck Operator Name Role Phone Name, Nitin PIKE Primary Care Provider [phone] Reason for Visit * Reason Onset Date Comments Verbal Orders 01/02/2024 Encounter Details Date Type Department Care Team ([facility] st Contact Info) Description 01/02/2024 Telephone [facility] MEDICINE [address] [place], [place] [phone] Name, MD Nitin [address] [place] [address] Verbal Orders Social History Tobacco Use Types [...] No answer. LVM to call back on [phone]. * Telephone Encounter - Melany Santos RN - 01/06/2024 10:25 AM EST Please review and advise for below request. * Telephone Encounter - Deana Bazzi - 01/02/2024 3:44 PM EST Tc from [facility] with S requesting verbal orders for discharge pt from Occupational Therapy, due to pt refuses services, please contact [facility] at [phone]. documented in this encounter Plan of Treatment Upcoming Encounters Date Type Department Care Team (Late st Contact Info) Description 11/07/2025 10:00 AM EST Office Visit [facility] MEDICINE [address] [place] [phone] Name, MD Nitin [address] [place] [address] documented as of this encounter Visit Diagnoses Not on filedocumented in this encounter Additional Health Concerns Assessment Noted Time PHQ-9 Depression Total Score: 12 023 9:37 AM EDT documented as of this encounter Care Teams Electric Truck Operator Relationship Specialty Start Date End Date Name, MD Nitin [address] [place] [address] PCP - General Family Medicine 08/26/17 [facility] 09/01/24 documented as of this encounter
--- OUTSIDE RECORDS SUMMARY | 2025-09-18 14:10 | XMS_ITS | Encounter Summary ---
Author Organization [employer] Address [address] [facility] [address] [place] [address] Care Team Providers Care Chief Service Observer Name Role Phone Name, Nitin PIKE Primary Care Provider [phone] Encounter Details Date Type Department Care Team ([facility] Contact Info) Description 08/08/2023 Telephone [facility] MEDICINE [address] [place] [address] [phone] Name, MD Nitin [address] [place] [address] [phone] Social History Tobacco Use Types Packs/Day Years [...] Description 11/07/2025 10:00 AM EST Office Visit [facility] MEDICINE [address] [place] [address] [phone] Name, MD Nitin [address] [place] [address] [phone] documented as of this encounter Visit Diagnoses Not on filedocumented in this encounter Additional Health Concerns Assessment Noted Time PHQ-9 Depression Total Score: 12 023 9:37 AM EDT documented as of this encounter Care Teams Chief Service Observer Relationship Specialty Start Date End Date Name, MD Nitin [address] [place] [address] PCP - General Family Medicine 08/26/17 [facility] 09/01/24 documented as of this encounter
--- OUTSIDE RECORDS SUMMARY | 2025-09-18 14:10 | XMS_ITS | Encounter Summary ---
Author Organization [employer] Address [address] [facility] [address] [place] [address] Care Team Providers Care Alteration Inspector Name Role Phone Name, Nitin PIKE Primary Care Provider [phone] Reason for Visit * Reason Comments Med Refill Encounter Details Date Type Department Care Team ([facility] st Contact Info) Description 04/01/2024 Refill [facility] MEDICINE [address] [place], [place] [phone] Name, MD Nitin [address] [place] [address] Rash Social History Tobacco Use Types Packs/Day [...] Description 11/07/2025 10:00 AM EST Office Visit [facility] MEDICINE [address] [place] [phone] NameNitin MD [address] [place] [address] documented as of this encounter Visit Diagnoses Diagnosis Rash Rash and other nonspecific skin eruption documented in this encounter Additional Health Concerns Assessment Noted Time PHQ-9 Depression Total Score: 6 02/13/20 24 9:14 AM EDT documented as of this encounter Care Teams Alteration Inspector Relationship Specialty Start Date End Date NameNitin MD [address] [place] [address] PCP - General Family Medicine 08/26/17 [facility] 09/01/24 documented as of this encounter
--- OUTSIDE RECORDS SUMMARY | 2025-09-18 14:10 | XMS_ITS | Clinical Summary ---
Author Organization [facility] Address [address] [address] Care Team Providers Care Manager Nicu Name Role Phone Name, Nitin PIKE Primary [...] to complete this topic [place] [address] MCR ([id number]) SARA PHILLIPS [phone] [facility] MCR ([id number]) Care Teams Manager Nicu Relationship Specialty Start Date End Date Name, MD Nitin [address] [place] [phone] PCP - General Internal Medicine 10/15/22
--- OUTSIDE RECORDS SUMMARY | 2025-09-18 14:10 | XMS_ITS | Encounter Summary ---
Author Organization [employer] Address [address] [facility] [address] [place] [address] Care Team Providers Care Artificial Leather Calender Operator Name Role Phone Name, Nitin PIKE Primary Care Provider [phone] Reason for Visit * Reason Onset Date Comments FYI 01/21/2024 ER Follow-up 01/21/2024 Encounter Details Date Type Department Care Team ([facility] st Contact Info) Description 01/21/2024 Telephone [facility] MEDICINE 230 [place], [place] [phone] Name, MD Nitin [address] [place] [address] FYI; ER Follow-up Social History Tobacco Use [...] - 01/21/2024 1:54 PM EDT Message from [facility] ED noted. [facility] note sent to medical records. PCP does not rx Trazodone. Pt to f/u with psych prescriber. Pt is scheduled for f/u with pcp 02/13/24. * Telephone Encounter - Janette Huitron - 01/21/2024 9:45 AM EDT Tc from [facility] with [facility] ED calling in regards to pt. States pt was seen today for anxiety and is requesting trazodone. Will discharge pt with no medication change. Would also like to advise provider, pt was seen at [facility] on 01/17 for anxiety/insomnia as well documented in this encounter Plan of Treatment Upcoming Encounters Date Type Department Care Team (Late st Contact Info) Description 11/07/2025 10:00 AM EST Office Visit [facility] MEDICINE [address] [place] [address] Name, MD Nitin [address] [place] [address] documented as of this encounter Visit Diagnoses Not on filedocumented in this encounter Additional Health Concerns Assessment Noted Time PHQ-9 Depression Total Score: 12 023 9:37 AM EDT documented as of this encounter Care Teams Artificial Leather Calender Operator Relationship Specialty Start Date End Date Name, MD Nitin [address] [place] [address] PCP - General Family Medicine 08/26/17 [facility] 09/01/24 documented as of this encounter
--- OUTSIDE RECORDS SUMMARY | 2025-09-18 14:10 | XMS_ITS | Encounter Summary ---
Author Organization [employer] Address [address] [facility] [address] [place] [address] Care Team Providers Care Science Interpreter Name Role Phone Name, Nitin PIKE Primary Care Provider [phone] Reason for Visit * Reason Comments Med Refill Encounter Details Date Type Department Care Team (Late st Contact Info) Description 01/09/2025 Refill [facility] 230 [place], [place] [phone] Name, MD Nitin [address] [place] [address] Hypertension, unspecified type Social History Tobacco Use [...] 10:00 AM EST Office Visit [facility] MEDICINE [address] [place] [phone] NameNitin MD [address] [place] [address] documented as of this encounter Visit Diagnoses Diagnosis Hypertension, unspecified type documented in this encounter Additional Health Concerns Assessment Noted Time PHQ-9 Depression Total Score: 6 02/13/20 9:14 AM EDT documented as of this encounter Care Teams Science Interpreter Relationship Specialty Start Date End Date NameNitin MD [address] [place] [id number] PCP - General Family Medicine 08/26/17 [facility] 09/01/24 documented as of this encounter
--- OUTSIDE RECORDS SUMMARY | 2025-09-18 14:10 | XMS_ITS | Encounter Summary ---
Author Organization [employer] Address [address] [facility] [address] [place] [address] Care Team Providers Care Deposition Reporter Name Role Phone Name, Nitin PIKE Primary Care Provider [phone] Encounter Details Date Type Department Care Team ([facility] st Contact Info) Description 05/26/2023 Orders Only [facility] MEDICINE [address] [place] [address] Noreen Fox MD [address] [place] [address] Social History Tobacco Use Types Packs/Day Years [...] Upcoming Encounters Date Type Department Care Team ([facility] st Contact Info) Description 11/07/2025 10:00 AM EST Office Visit [facility] MEDICINE [address] [place] [phone] Name, MD Nitin [address] [place] [address] documented as of this encounter Visit Diagnoses Not on filedocumented in this encounter Care Teams Deposition Reporter Relationship Specialty Start Date End Date Name, [place] [address] PCP - General Family Medicine 08/26/17 [facility] 09/01/24 documented as of this encounter
--- NOTE | 2025-09-18 16:33 | PC.NURSE ---
Patient requesting Ativan for anxiety. Awaiting ED provider evaluation. Care ongoing by this RN.
[2025-09-18 16:46] VITALS: BP 112/57; PULSE 92; RESP 18; TEMP 36.6; O2SAT 97
== END 2025-09-18 16:46 | disposition home or self-care (01) ==
PROVIDERS: Emergency Provider Emergency Medicine; PCP Internal Medicine Geriatric Medicine
DX: M25.562 Pain in left knee (principal); F41.9 Anxiety disorder, unspecified
CPT/HCPCS: 73564; 99283

== ENCOUNTER → 2025-09-18 14:02 | Outpatient (BNV) | payer OTHER, SELFPAY | PROVIDERS: PCP Internal Medicine Geriatric Medicine; Visit Provider Radiology Diagnostic Radiology | DX: M25.562 Pain in left knee (principal) | CPT/HCPCS: 73564 ==

== ENCOUNTER 2025-09-18 23:30 | Emergency (ER) | payer OTHER, SELFPAY ==
--- NOTE | ~2025-09-18 | CT_ITS ---
CLINICAL HISTORY: fall, head trauma CT cervical spine without contrast Comparison: CT/SR - CT CERVICAL SPINE WO IV CON - 09/03/25 13:35 EDT Findings: The alignment of the cervical spine is normal. There is no fracture. There is wgnn-wg-ouvwogzs C5-6 degenerative disc disease. There are posterior osteophytes at C5-6 probably causing hbfi-qd-jjireean central canal stenosis. 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 There is a calcified granuloma in the right lung apex. IMPRESSION: No evidence of cervical spine injury. This document has been electronically signed by: Jono Fine MD on 09/19/2025 03:42:06
--- NOTE | ~2025-09-18 | CT_ITS ---
CLINICAL HISTORY: head trauma CT head without contrast Comparison: CT/REG/SR - CT HEAD/BRAIN WO IV CON - 09/03/25 13:35 EDT Findings: There is no acute intracranial hemorrhage. Ventricles are within normal limits in size. No mass effect or midline shift is present. The lemons-white matter differentiation appears normal. There is partial opacification of right mastoid air cells unchanged from the prior CT. There is small amount of mucus within the left ethmoid air cells also unchanged. Orbits are unremarkable. No fractures are identified. IMPRESSION: No acute intracranial abnormality. This document has been electronically signed by: Jono Fine MD on 09/19/2025 03:43:42
[2025-09-18 23:41] VITALS: BP 156/66; PULSE 88; RESP 16; TEMP 37.2; O2SAT 96
[2025-09-18 23:47] VITALS: BP 135/83; PULSE 99; O2SAT 98; BMI 34.7
--- OUTSIDE RECORDS SUMMARY | 2025-09-18 23:56 | XMS_ITS | Encounter Summary ---
Author Organization [employer] Address [address] [facility] [address] [place] [address] Care Team Providers Care Sports Analyst Name Role Phone Name, Nitin PIKE Primary Care Provider [phone] Encounter Details Date Type Department Care Team ([facility] Contact Info) Description 12/17/2022 Orders Only [facility] [address] [place], [place] [phone] Lisha Kelly LPN Social History Tobacco Use [...] 11/07/2025 10:00 AM EST Office Visit [facility] MEDICINE [address] [place] [address] Nitin Echevarria MD [address] [place] [address] documented as of this encounter Visit Diagnoses Not on filedocumented in this encounter Care Teams Sports Analyst Relationship Specialty Start Date End Date NameNitin MD [address] [place] [address] PCP - General Family Medicine 08/26/17 [facility] 09/01/24 documented as of this encounter
--- OUTSIDE RECORDS SUMMARY | 2025-09-18 23:56 | XMS_ITS | Clinical Summary ---
Author Organization [employer] Address [address] [place] [address] 7[place] [address] Care Team Providers Care Thermal Cutter Hand Name Role Phone Name, Nitin PIKE Primary Care Provider [phone] Allergies Active Allergy Reactions Criticality Noted Date [...] MOUTH EVERY 8 HOURS NEEDED FOR PAIN (MALAWIAN LABEL) 90 tablet 08/09/20 25 Active omeprazole [...] EST): Symptomatic measures Rest Major neurocognitive disorder ([facility]) 11/02/20 Acute otitis media 04/22/2024 Diarrhea 02/12/2024 [...] precautions advised Stage 3a chronic kidney disease ([facility]) 2022 Headache 01/02/2023 Overview (12/18/2023): Last Assessment [...] because it calms her down. I called [facility] pharmacy to attempt a med rec they instructed me that she is on med box and one week at a time prescriptions because she would break into her med boxes to take more Ambien or xanax. She is being seen by Izzy Perea at [facility]. He is aware of her behavior and [...] left I received a call from the [facility] pharmacy instructing me that she was [...] Encounters Date Type Department Care Team Description 09/18/2025 Orders Only [facility] External Provider, [facility] 09/17/2025 Orders Only GENERIC EXTERNAL DATA DEPARTMENT Provider, Generic External Data 09/09/2025 Telephone [facility] [place] [place] [address] Thea Warren, LINOLEUM MECHANIC Results 09/06/2025 1:30 PM EDT Office Visit [facility] [place] [address] Oxana Warrene, LINOLEUM MECHANIC Acute pain of left knee (Primary Dx); Urinary frequency; Acute cystitis without hematuria 09/06/2025 Orders Only [facility] [place] [place] [address] Thea Warren, LINOLEUM MECHANIC 09/06/2025 Travel 09/05/2025 Telephone [facility] [address] [place] [address] Nitin Echevarria MD Chart Prep 09/03/2025 Orders Only GENERIC EXTERNAL DATA DEPARTMENT Provider, Generic External Data 08/30/2025 Patient Outreach [facility] [address] [place] [address] Nitin Echevarria MD Pre-visit Planning ([facility] unable to reach) 08/24/2025 Telephone [facility] [address] [place] [address] Nitin Echevarria MD Referral 08/24/2025 Telephone [facility] [address] [place] [address] Nitin Echevarria MD Verbal Order 08/22/2025 Orders Only [facility] External Provider, [facility] 08/18/2025 Orders Only GENERIC EXTERNAL DATA DEPARTMENT Provider, Generic External Data 08/17/2025 Refill [facility] [address] [place] [address] Nitin Echevarria MD 08/17/2025 Refill [facility] [address] [place] [address] Miryam Riley NP Hypertension, unspecified type 08/15/2025 Refill [facility] [address] [place] [address] Nitin Echevarria MD Heartburn 08/14/2025 Refill [facility] [address] [place] [address] Nitin Echevarria MD Heartburn; Vitamin D deficiency 08/09/2025 11:15 AM EDT Office Visit [facility] [address] [place] [address] Nitin Echevarria MD Generalized anxiety disorder with panic attacks (Primary Dx); Encounter for immunization; Chronic bilateral low back pain without sciatica 08/09/2025 Travel 08/01/2025 Refill [facility] [address] [place] [address] Nitin Echevarria MD Vitamin D deficiency 07/28/2025 Orders Only GENERIC EXTERNAL DATA DEPARTMENT Provider, Generic External Data 07/27/2025 Orders Only [facility] External Provider, [facility] 07/26/2025 Orders Only GENERIC EXTERNAL DATA DEPARTMENT Provider, Generic External Data 07/26/2025 Telephone [facility] [address] [place] [address] Nitin Echevarria MD ER Follow-up 07/25/2025 Refill [facility] [address] [place] [address] Nitin Echevarria MD 07/25/2025 Refill [facility] [address] [place] [address] Nitin Echevarria MD 07/18/2025 Refill [facility] [address] [place] [address] Miryam Riley NP 07/18/2025 Orders Only GENERIC EXTERNAL DATA DEPARTMENT Provider, Generic External Data 07/17/2025 Refill [facility] [address] [place] [address] Nitin Echevarria MD Hypertension, unspecified type 07/07/2025 8:40 AM EDT Office Visit [facility] [address] [address] Zach Javier MD Acute conjunctivitis of left eye, unspecified acute conjunctivitis type (Primary Dx) 07/07/2025 Travel 07/01/2025 9:20 AM EDT Office Visit [facility] [address] [address] Zach Javier MD Pedal edema (Primary Dx) 07/01/2025 Travel 06/28/2025 Refill [facility] [address] [place] [address] Name, MD Nitin 06/27/2025 Refill [facility] [address] [place] [address] Name, MD Nitin Vitamin D deficiency 06/19/2025 Refill [facility] [address] [place], [place] [phone] Name, MD Nitin Prediabetes from Last 3 [...] 11/07/2025 10:00 AM EST Office Visit [facility] [address] [place] [address] Name, MD Nitin [address] [place], [place] [phone] Health Maintenance Due Date Last Done Comments [...] Comments XR KNEE 4+ VIEWS LEFT Routine 09/18/2025 3:36 PM EST GLUCOSE, WHOLE BLOOD Routine 09/17/2025 7:24 AM [...] Results * XR Knee 4+ Views Left (09/18/2025 3:36 PM EST) Only the most recent of2 resultswithin the time period is included. Anatomical Region Laterality Modality Lower Extremities, Knee Left Radi[facility] Imaging 09/18/2025 3:36 PM EST Narrative 09/18/2025 3:39 PM EST [address] [address] XRay Report Signed Patient: Noreen Wing MR#: [id number] : 1945 Acct:[id number] Age/Sex: 79 / F ADM Date: 09/18/25 Loc: HO.ED Attending Dr: Ordering Physician: Cuco Amador Date of Service: 09/18/25 Procedure(s): XR knee LT 4V Accession Number(s): [id number] cc: Cuco Amador; Name,Nitin PIKE Reason for Exam: Left knee pain CLINICAL HISTORY: Left knee pain 4 views left knee Comparison: 08/26/2025 Findings: No fractures or dislocations. No joint effusion. Stable slight medial compartment joint space narrowing and slight patellar and lateral compartment spurring. 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 No radiopaque foreign body. Impression: 1. Stable-appearing left knee This document has been electronically signed by: Ash Sherman MD on 09/18/2025 15:36:33 Dictated By: Ash Sherman MD Signed By: <Electronically signed by Ash Sherman MD in OV> 09/18/25 1538 DD/ 35 TD/TT: 09/18/25 153 [employer] Supervisor: Procedure Note Donotuseinterpreter, Image - 09/18/2025 [place] [address] XRay Report Signed Patient: Noreen WingMR#: [id number] : 1945cct:[id number] Age/Sex: 79 / FADM Date: 09/18/25 Loc: .ED Attending Dr: Ordering Physician: Cuco Amador Date of Service: 09/18/25 Procedure(s): XR knee LT 4V Accession Number(s): [id number] cc: Cuco Amador; Name,Nitin PIKE Reason for Exam: Left knee pain CLINICAL HISTORY: Left knee pain 4 views left knee Comparison: 08/26/2025 Findings: No fractures or dislocations. No joint effusion. Stable slight medial compartment joint space narrowing and slight patellar and lateral compartment spurring. 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 No radiopaque foreign body. Impression: 1. Stable-appearing left knee This document has been electronically signed by: Ash Sherman MD on 09/18/2025 15:36:33 Dictated By: sAh Sherman MD Signed By: <Electronically signed by Ash Sherman MD in OV> 09/18/25 1538 DD/ 1536 TD/TT: 09/18/25 1536 [employer] Supervisor: [facility] External Provider IMG XR PROCEDURES Edited Result - Final * Glucose, Whole Blood (09/17/2025 7:24 AM EST) Glucose, Whole Blood 98 60 - 115 mg/dL [facility] Comment:METER #: [id number] 09/17/2025 7:24 AM EST 09/17/2025 7:28 AM EST Generic External Data Provider LAB BLOOD ORDERAB LES Final Result Performing Organization Address [facility] Co de Phone Number [facility] [address] [place] [phone] * Culture, Urine, Routine (09/06/2025 2:19 PM EDT) Only the most recent of4 resultswithin the time period is included. Urine Urine specimen obtained by clean catch procedure / Unknown 09/06/2025 2:19 PM EDT 09/06/2025 6:45 PM EDT Comment:UACC Narrative [facility] - 09/08/2025 3:37 PM EDT Strep agalactiae (Grp B) Quant 10,000 to 50,000 cfu/mL Susc N/A Susceptibility not routinely performed on this isolate. Specimen Source: Urine clean catch Thea Warren LINOLEUM MECHANIC LAB MICROBIOLOGY - GENERAL ORD ERABLES Final Result Performing Organization Address City/[facility]/ZIP Co de Phone Number [facility] [address] [place] [phone] * POCT Urinalysis (09/06/2025 1:32 PM [...] (Urine, Random) 09/06/2025 1:32 PM EDT us Thealatasha Warren LINOLEUM MECHANIC POINT OF CARE TEST ENTER/EDIT ORDERABLES Final Result * CT Cervical Spine w/o Contrast (09/03/2025 2:51 PM EDT) Anatomical Region Laterality Modality Spine, C-spine Computed Tomogra phy 09/03/2025 2:51 PM EDT Narrative 09/03/2025 2:52 PM EDT [place] [address] CT Scan Report Signed Patient: Noreen Wing MR#: [id number] : 1945 Acct:[id number] Age/Sex: 79 / F ADM Date: 09/03/25 Loc: HO.ED Attending Dr: Ordering Physician: Dyana Andrews Date of Service: 09/03/25 Procedure(s): CT cervical spine wo IV con Accession Number(s): [id number] cc: Dyana Andrews; Name,Nitin PIKE Report Number: [id number]: Total DLP = 1246.00 mGy-cm Reason for [...] by Ash Sherman MD in OV> 09/03/25 1451 DD/ 50 TD/TT: 09/03/251450 [employer] Supervisor: Procedure Note Donotuseinterpreter, Image - 09/03/[address] [address] [address] Scan Report Signed Patient: Noreen WingMR#: [id number] : 1945cct:[id number] Age/Sex: 79 / FADM Date: 09/03/25 Loc: HO.ED Attending Dr: Ordering Physician: Dyana Andrews Date of Service: 09/03/25 Procedure(s): CT cervical spine wo IV con Accession Number(s): [id number] cc: Dyana Andrews; Name,Nitin PIKE Report Number: [id number]: Total DLP = 1246.00 mGy-cm Reason for [...] in OV> 09/03/251450 DD/ 50 TD/TT: 09/03/251450 [employer] Supervisor: us [facility] External Provider IMG CT PROCEDURES Edited Result - Final * CT Head w/o Contrast (09/03/2025 2:51 PM EDT) Anatomical Region Laterality Modality Head, Neck Computed Tomogra phy 09/03/2025 2:51 PM EDT Narrative 09/03/2025 2:52 PM EDT [address] [address] [address] Scan Report Signed Patient: Noreen Wing MR#: [id number] : 1945 Acct:[id number] Age/Sex: 79 / F ADM Date: 09/03/25 Loc: HO.ED Attending Dr: Ordering Physician: Dyana Andrews Date of Service: 09/03/25 Procedure(s): CT head/brain wo IV con Accession Number(s): [id number] cc: Dyana Andrews; Name,Nitin PIKE Report Number: [id number]: Total DLP = 0.00 mGy-cm Reason for [...] 09/03/25 1452 DD/ 1451 TD/TT: 09/03/25 145 [employer] Supervisor: Procedure Note Donotuseinterpreter, Image - 09/03/[address] [place] [address] [address] Scan Report Signed Patient: Noreen WingMR#: [id number] : 1945cct:[id number] Age/Sex: 79 / FADM Date: 09/03/25 Loc: HO.ED Attending Dr: Ordering Physician: Dyana Andrews Date of Service: 09/03/25 Procedure(s): CT head/brain wo IV con Accession Number(s): [id number] cc: Dyana Andrews; Wale,Nitin PIKE Report Number: [id number]: Total DLP = 0.00 mGy-cm Reason for [...] in OV> 09/03/251451 DD/ 50 TD/TT: 09/03/251450 [employer] Supervisor: [facility] External Provider IMG CT PROCEDURES Edited Result - Final * High Sensitivity Troponin I (09/03/2025 2:08 PM EDT) Only the most recent of5 resultswithin the time period is included. [facility] TROPONIN I HIGH SENSITIVITY <2.7 <3.5 - 17.0 ng/L [facility] Comment:The [place] high sens itivity Troponin-I results should beused in conjunction with other diagnostic information suchas ECG, clinical observations and information, and patientsymptoms to aid in the diagnosis of NV. 09/03/2025 2:08 PM EDT 09/03/2025 2:12 PM EDT Generic External Data Provider LAB BLOOD ORDERAB LES Final Result [facility] [address] [place] [phone] * (ABNORMAL) CBC auto differential (09/03/2025 2:08 PM EDT) Only the most recent of4 resultswithin the time period is included. [facility] White Blood Count 7.5 4.8 - 10.8 X10*3/uL [facility] Red Blood Count 3.89(L) 4.20 - 5.50 X10*6/uL [facility] Hemoglobin 10.9(L) 12.0 - 16.0 g/dl [facility] Hematocrit 32.7(L) 37.0 - 47.0 % [facility] Mean Corpuscular Volume 84.1 80.0 - 98.0 fL [facility] Mean Corpuscular Hemoglobin 28.0 27.0 - 33.0 pg [facility] Mean Corpuscular HGB Conc 33.3 31.0 - 35.0 g/dl [facility] Red Cell Distribution Width 14.0 11.0 - 16.0 % [facility] Platelet Count 278 160 - 400 X10*3/uL [facility] Mean Platelet Volume 8.4(L) 9.4 - 12.3 fL [facility] Neutrophils Percent Auto 65.2 45 - 73 % [facility] Imm Gran Pct Auto 0.4 0.0 - 0.4 % [facility] Lymphocytes Percent Auto 21.8 20 - 40 % [facility] Monocytes Percent Auto 10.5 2 - 11 % [facility] Eosinophils Percent Auto 1.6 0 - 4 % [facility] Basophils Percent Auto 0.5 0 - 2 % [facility] NRBC Pct Auto 0.0 0.0 - 0.2 /100WBC [facility] Neutrophils Absolute Auto 4.9 2.0 - 8.3 x10*3/uL [facility] Imm Gran Abs Auto 0.03 0.00 - 0.03 X10*3/uL [facility] Lymphocytes Absolute Auto 1.6 1.2 - 4.9 X10*3/uL [facility] Monocytes Absolute Auto 0.8 0.1 - 1.2 X10*3/uL [facility] Eosinophils Absolute Auto 0.1 0.0 - 0.4 X10*3/uL [facility] Basophils Absolute Auto 0.0 0.0 - 0.2 X10*3/uL [facility] NRBC Abs Auto 0.000 0.0 - 0.012 X10*3/uL [facility] 09/03/2025 2:08 PM EDT 09/03/2025 2:12 PM EDT Generic External Data Provider LAB BLOOD ORDERAB LES Final Result Performing Organization Address City/[facility]/ZIP Co de Phone Number [facility] [address] [place] [address] [phone] * Magnesium (09/03/2025 2:08 PM EDT) Pathologist [facility] Magnesium 2.0 1.6 - 2.6 mg/dL [facility] 09/03/2025 2:08 PM EDT 09/03/2025 2:12 PM EDT Generic External Data Provider LAB BLOOD ORDERAB LES Final Result Performing Organization Address [facility] de Phone Number [facility] [address] [place] [address] [phone] * (ABNORMAL) Comprehensive Metabolic Panel (09/03/2025 2:08 PM EDT) Only the most recent of3 resultswithin the time period is included. Pathologist [facility] Sodium 139 135 - 145 mmol/L [facility] Potassium 4.1 3.3 - 5.1 mmol/L [facility] Chloride 105 96 - 108 mmol/L [facility] Carbon Dioxide 28 22 - 29 mmol/L [facility] Anion Gap 10(L) 12 - 20 [facility] Urea Nitrogen (BUN) 24(H) 9 - 16 mg/dL [facility] Creatinine, Serum 1.04 0.5 - 1.4 mg/dL [facility] Creatinine Clr Calc Pharmacy 45.7 [facility] Comment:Provided height and weight: 162.56 cm,88.7 kg.eGFR (calculated from the MDRD study equation) and eCrCl(calculated from the Cockcroft-Gault equation) are based ondifferent parameters and may not yield comparable results.If eCrCl result is absurd, please check patient'sheight/weight. Estimated Glomerular Filt Rate 51 [facility] Comment:Chronic Kidney Disea se: Estimated GFR < 60 mL/min/1.62j5Jqleaw Kidney Disease: Estimated GFR < 15 mL/min/1.73m2 Glucose 105 60 - 115 mg/dL [facility] Calcium 8.9 8.4 - 10.2 mg/dL [facility] Bilirubin, Total 0.2 0.0 - 1.0 mg/dL [facility] Aspartate Amino Transferase 27 5 - 31 U/L [facility] Alanine Aminotransferase 18 0 - 31 U/L [facility] Total Protein 7.7 6.5 - 8.0 g/dL [facility] Albumin Level 4.0 3.5 - 5.0 g/dL [facility] Alkaline Phosphatase 81 39 - 117 U/L [facility] 09/03/2025 2:08 PM EDT 09/03/2025 2:12 PM EDT us Generic External Data Provider LAB BLOOD ORDERAB LES Final Result [facility] [address] [place] [phone] * (ABNORMAL) Basic Metabolic Panel (08/18/2025 8:44 AM EDT) Only the most recent of2 resultswithin the time period is included. Sodium 137 135 - 145 mmol/L [facility] Potassium 4.6 3.3 - 5.1 mmol/L [facility] Chloride 101 96 - 108 mmol/L [facility] Carbon Dioxide 30(H) 22 - 29 mmol/L [facility] Anion Gap 11(L) 12 - 20 [facility] Urea Nitrogen (BUN) 19(H) 9 - 16 mg/dL [facility] Creatinine, Serum 0.94 0.5 - 1.4 mg/dL [facility] Estimated Glomerular Filt Rate 57 [facility] Comment:Chronic Kidney Disea se: Estimated GFR < 60 mL/min/1.98x8Ppbvey Kidney Disease: Estimated GFR < 15 mL/min/1.73m2 Glucose 94 60 - 115 mg/dL [facility] Calcium 9.3 8.4 - 10.2 mg/dL [facility] 08/18/2025 8:44 AM EDT 08/18/2025 8:44 AM EDT us Generic External Data Provider LAB BLOOD ORDERAB LES Final Result Performing Organization Address City/State/[facility] Co de Phone Number [facility] [address] [place] [phone] * CTA Chest PE Protocal (07/28/2025 8:35 PM EDT) Only the most recent of2 resultswithin the time period is included. Anatomical Region Laterality Modality Body, Chest Computed Tomogra phy 07/28/2025 8:35 PM EDT Narrative 07/28/2025 8:36 PM EDT [address] [address] [address] Scan Report Signed Patient: Noreen Wing MR#: [id number] : 1945 Acct:[id number] Age/Sex: 79 / F ADM Date: 07/28/25 Loc: .ED Attending Dr: Ordering Physician: Cuco Amador Date of Service: 07/28/25 Procedure(s): CT angio chest PE protocol Accession Number(s): [id number] cc: Cuco Amador; Name,Nitin PIKE Report Number: [id number]: Total DLP = 311.00 mGy-cm Reason for [...] in OV> 07/28/252034 DD/ 34 TD/TT: 07/28/252034 [employer] Supervisor: Procedure Note Donotuseinterpreter, Image - 07/28/[address] [address] [address] Scan Report Signed Patient: Noreen WingMR#: [id number] : 1945cct:[id number] Age/Sex: 79 / FADM Date: 07/28/25 Loc: .ED Attending Dr: Ordering Physician: Cuco Amador Date of Service: 07/28/25 Procedure(s): CT angio chest PE protocol Accession Number(s): [id number] cc: Cuco Amador; Name,Nitin PIKE Report Number: [id number]: Total DLP = 311.00 mGy-cm Reason for [...] in OV> 07/28/252034 DD/ 34 TD/TT: 07/28/252034 [employer] Supervisor: us [facility] External Provider IMG CT PROCEDURES Final Result * (ABNORMAL) Urinalysis, Complete, with Reflex to Culture (07/28/2025 8:06 PM EDT) Only the most recent of3 resultswithin the time period is included. Color Urine Yellow [facility] Appearance Urine Clear [facility] PH 6.0 5.0 - 9.0 [facility] Glucose Urine UA Negative Negative mg/dL [facility] Urine Blood Negative Negative [facility] Specific [place] - Urine >=1.030(H) 1.005 - 1.025 [facility] Urine Protein Negative Neg-Trace mg/dL [facility] Urine Ketones Negative Negative mg/dL [facility] Nitrite Urine Negative Negative [facility] Leukocyte Esterase Urine Small (1+)(A) Negative [facility] RBC Urine 0-2 0 - 2 /HPF [facility] Urine WBC 6-10(A) 0 - 5 /HPF [facility] Urine Squamous Epithelial Cell 0-2 0 - 2 /HPF [facility] Urine Bacteria None Seen None Seen [facility] Hyaline Casts, Urine 0-2 0 - 2 /LPF [facility] 07/28/2025 8:06 PM EDT 07/28/2025 8:12 PM EDT Narrative [facility] - 07/28/2025 9:26 PM EDT [id number], Clean Catch Generic External Data Provider LAB URINE ORDERAB LES Final Result [facility] [address] [place] [phone] * CT Abdomen Pelvis w/ Contrast (07/28/2025 8:01 PM EDT) Anatomical Region Laterality Modality Body, Pelvis, Abdomen Computed T omography 07/28/2025 8:01 PM EDT Narrative 07/28/2025 8:03 PM EDT [address] [address] [address] Scan Report Signed Patient: Noreen Wing MR#: [id number] : 1945 Acct:[id number] Age/Sex: 79 / F ADM Date: 07/28/25 Loc: HO.ED Attending Dr: Ordering Physician: Cuco Amador Date of Service: 07/28/25 Procedure(s): CT abdomen pelvis w IV con Accession Number(s): [id number] cc: Cuco Amador; Name,Nitin PIKE Report Number: [id number]: Total DLP = 539.64 mGy-cm Reason for [...] in OV> 07/28/252001 DD/ 00 TD/TT: 07/28/252000 [employer] Supervisor: Procedure Note Donotuseinterpreter, Image - 07/28/[address] [address] [address] Scan Report Signed Patient: Noreen WingMR#: [id number] : 3Acct:[id number] Age/Sex: 79 / FADM Date: 07/28/25 Loc: HO.ED Attending Dr: Ordering Physician: Cuco Amador Date of Service: 07/28/25 Procedure(s): CT abdomen pelvis w IV con Accession Number(s): [id number] cc: Cuco Amador; Name,Nitin PIKE Report Number: [id number]: Total DLP = 539.64 mGy-cm Reason for [...] in OV> 07/28/252001 DD/ 00 TD/TT: 07/28/252000 [employer] Supervisor: [facility] External Provider IMG CT PROCEDURES Final Result * Partial Thromboplastin Time, Activated (APTT) (07/28/2025 5:01 PM EDT) Partial Thromboplastin Time 31.4 26.7 - 34.1 SEC [facility] 07/28/2025 5:01 PM EDT 07/28/2025 5:05 PM EDT us Generic External Data Provider LAB BLOOD ORDERAB LES Final Result Performing Organization Address City/[facility]/ZIP Co de Phone Number [facility] [address] [place] [phone] * (ABNORMAL) Prothrombin Time-INR (07/28/2025 5:01 PM EDT) Prothrombin Time 14.3(H) 10.9 - 12.4 SEC [facility] INTERNATIONAL NORM RATIO 1.2(H) 0.9 - 1.1 [facility] Comment:INTERNATIONAL NORMAL IZED RATIO (INR) [...] ORDERAB LES Final Result Performing Organization Address [facility] Co de Phone Number [facility] [address] [place] [phone] * Lipase (07/28/2025 5:01 PM EDT) Lipase 31 8 - 78 U/L [facility] 07/28/2025 5:01 PM EDT 07/28/2025 5:05 PM EDT us Generic External Data Provider LAB BLOOD ORDERAB LES Final Result Performing Organization Address City/[facility]/ZIP Co de Phone Number [facility] [address] [place] [phone] * POCT HGB A1C (01/10/2025 11:02 [...] LDL-C. Jack SS et al. JITENDRA. 2013;310(19): 1722-5208 (http://education.[employer].Frankly Chat/faq/XET084) Non-HDL Cholesterol 88 <130 mg/dL (calc) CONVERTED [...] Most Recently Relevant to Health Maintenance Insurance [employer] (HMO D-SNP) [place] [id number] Care Teams Thermal Cutter Hand Relationship Specialty Start Date End Date Name, MD Nitin [address] [place] [phone] PCP - General Family Medicine 08/26/17 [facility] 09/01/24
--- OUTSIDE RECORDS SUMMARY | 2025-09-18 23:56 | XMS_ITS | Encounter Summary ---
Author Organization [employer] Address 75 [facility] 7t [place] [address] Care Team Providers Care Transportation Consultant Name Role Phone Name, Nitin PIKE Primary Care Provider [phone] Encounter Details Date Type Department Care Team ([facility] st Contact Info) Description 05/26/2023 Orders Only [facility] MEDICINE [address] [place] [address] Noreen Fox MD 230 [place] [address] Social History Tobacco Use Types Packs/Day Years [...] Upcoming Encounters Date Type Department Care Team ([facility] st Contact Info) Description 11/07/2025 10:00 AM EST Office Visit [facility] MEDICINE [address] [place] [address] Name, MD Nitin 230 [place] [address] documented as of this encounter Visit Diagnoses Not on filedocumented in this encounter Care Teams Transportation Consultant Relationship Specialty Start Date End Date Name, [place] [address] PCP - General Family Medicine 08/26/17 [facility] 09/01/24 documented as of this encounter
--- OUTSIDE RECORDS SUMMARY | 2025-09-18 23:56 | XMS_ITS | Clinical Summary ---
Author Organization [facility] Address [address] [address] Care Team Providers Care Finish Specialist Name Role Phone Name, Nitin PIKE Primary Care Provider [phone] Allergies Active Allergy Reactions Criticality Noted Date [...] patient's age to complete this topic [place] [address] MCR ([id number]) [place] [phone] [facility] MCR ([id number]) Care Teams Finish Specialist Relationship Specialty Start Date End Date Name, MD Nitin [address] [place] [address] PCP - General Internal Medicine 10/15/22
--- OUTSIDE RECORDS SUMMARY | 2025-09-18 23:56 | XMS_ITS | Encounter Summary ---
Author Organization [employer] Address 75 [facility] 7[address] [place] [address] Care Team Providers Care Medical Housekeeper Name Role Phone Name, Nitin PIKE Primary Care Provider [phone] Reason for Visit * Reason Onset Date Comments Verbal Orders 01/02/2024 Encounter Details Date Type Department Care Team ([facility] st Contact Info) Description 01/02/2024 Telephone [facility] 230 [place], [place] [phone] Name, MD Nitin [address] [place] [address] Verbal Orders Social History Tobacco Use Types [...] No answer. LVM to call back on [phone]. * Telephone Encounter - Melany Santos RN - 01/06/2024 10:25 AM EST Please review and advise for below request. * Telephone Encounter - Deana Bazzi - 01/02/2024 3:44 PM EST Tc from [facility] with [facility] requesting verbal orders for discharge pt from Occupational Therapy, due to pt refuses services, please contact Josseline at [phone]. documented in this encounter Plan of Treatment Upcoming Encounters Date Type Department Care Team (Late st Contact Info) Description 11/07/2025 10:00 AM EST Office Visit [facility] [address] [place] [address] Name, MD Nitin 230 [place] [address] documented as of this encounter Visit Diagnoses Not on filedocumented in this encounter Additional Health Concerns Assessment Noted Time PHQ-9 Depression Total Score: 12 023 9:37 AM EDT documented as of this encounter Care Teams Medical Housekeeper Relationship Specialty Start Date End Date Name, MD Nitin [address] [place] [address] PCP - General Family Medicine 08/26/17 [facility] 09/01/24 documented as of this encounter
--- OUTSIDE RECORDS SUMMARY | 2025-09-18 23:56 | XMS_ITS | Encounter Summary ---
Author Organization [employer] Address 75 [facility] 7t [place] [address] Care Team Providers Care Condenser Setter Name Role Phone Name, Nitin PIKE Primary Care Provider [phone] Reason for Visit * Reason Onset Date Comments Med Refill 11/08/2024 Encounter Details Date Type Department Care Team ([facility] st Contact Info) Description 11/08/2024 Telephone [facility] 230 [place], [place] [phone] Name, MD Nitin 230 [place] [address] Med Refill Social History Tobacco Use Types [...] 5 MG tablet To be sent to: [facility] - [place], [place] - 230 [facility] documented in this encounter Plan of Treatment Upcoming Encounters Date Type Department Care Team ([facility] st Contact Info) Description 11/07/2025 10:00 AM EST Office Visit [facility] 230 [place] [address] Name, MD Nitin 230 [place] [address] documented as of this encounter Visit Diagnoses Not on filedocumented in this encounter Additional Health Concerns Assessment Noted Time PHQ-9 Depression Total Score: 6 02/13/20 24 9:14 AM EDT documented as of this encounter Care Teams Condenser Setter Relationship Specialty Start Date End Date Name, MD Nitin 230 [place] [address] PCP - General Family Medicine 08/26/17 [facility] 09/01/24 documented as of this encounter
--- OUTSIDE RECORDS SUMMARY | 2025-09-18 23:56 | XMS_ITS | Encounter Summary ---
Author Organization [employer] Address 75 [facility] 7[address] [place] [address] Care Team Providers Care Packager Hand Name Role Phone Name, Nitin PIKE Primary Care Provider [phone] Encounter Details Date Type Department Care Team ([facility] Contact Info) Description 08/08/2023 Telephone [facility] MEDICINE [address] [place] [address] [phone] Name, MD Nitin [address] [place] [address] [phone] Social History Tobacco Use Types Packs/Day Years [...] Description 11/07/2025 10:00 AM EST Office Visit [facility] [address] [place] [address] [phone] Name, MD Nitin [address] [place] [address] [phone] documented as of this encounter Visit Diagnoses Not on filedocumented in this encounter Additional Health Concerns Assessment Noted Time PHQ-9 Depression Total Score: 12 023 9:37 AM EDT documented as of this encounter Care Teams Packager Hand Relationship Specialty Start Date End Date Name, MD Nitin 230 [place] [address] PCP - General Family Medicine 08/26/17 [facility] 09/01/24 documented as of this encounter
--- OUTSIDE RECORDS SUMMARY | 2025-09-18 23:56 | XMS_ITS | Encounter Summary ---
Author Organization [employer] Address [address] [facility] 7[address] [place] [address] Care Team Providers Care Jackhammer Splitter Operator Name Role Phone Name, Nitin PIKE Primary Care Provider [phone] Reason for Visit * Reason Comments Med Refill Encounter Details Date Type Department Care Team (Late st Contact Info) Description 04/20/2025 Refill [facility] 230 [place] [address] Zechariah Cheung MD 230 [place] [address] Allergic rhinitis, unspecified seasonality, unspecified trigger Social [...] Description 11/07/2025 10:00 AM EST Office Visit [facility] 230 [place] [address] NameNitin MD 230 [place] [address] documented as of this encounter Visit Diagnoses Diagnosis Allergic rhinitis, unspecified seasonality, unspecified trigger documented in this encounter Additional Health Concerns Assessment Noted Time PHQ-9 Depression Total Score: 6 02/13/20 9:14 AM EDT documented as of this encounter Care Teams Jackhammer Splitter Operator Relationship Specialty Start Date End Date Nitin Echevarria MD [address] [place] [address] PCP - General Family Medicine 08/26/17 [facility] 09/01/24 documented as of this encounter
--- OUTSIDE RECORDS SUMMARY | 2025-09-18 23:56 | XMS_ITS | Encounter Summary ---
Author Organization [employer] Address 75 [facility] [address] [place] [address] Care Team Providers Care Tractor Engine Assembler Name Role Phone Name, Nitin PIKE Primary Care Provider [phone] Reason for Visit * Reason Comments Med Refill Encounter Details Date Type Department Care Team (Late st Contact Info) Description 01/09/2025 Refill [facility] 230 [place], [place] [phone] Name, MD Nitin 230 [place] [address] Hypertension, unspecified type Social History Tobacco Use [...] Description 11/07/2025 10:00 AM EST Office Visit [facility] [address] [place] [address] NameNitin MD [address] [place] [address] documented as of this encounter Visit Diagnoses Diagnosis Hypertension, unspecified type documented in this encounter Additional Health Concerns Assessment Noted Time PHQ-9 Depression Total Score: 6 02/13/20 9:14 AM EDT documented as of this encounter Care Teams Tractor Engine Assembler Relationship Specialty Start Date End Date NameNitin MD [address] [place] [address] PCP - General Family Medicine 08/26/17 [facility] 09/01/24 documented as of this encounter
--- OUTSIDE RECORDS SUMMARY | 2025-09-18 23:56 | XMS_ITS | Encounter Summary ---
Author Organization [employer] Address 75 [facility] 7t [place] [address] Care Team Providers Care Yellow Pages Space Salesperson Name Role Phone Name, Nitin PIKE Primary Care Provider [phone] Reason for Visit * Reason Comments Med Refill Encounter Details Date Type Department Care Team ([facility] st Contact Info) Description 06/28/2024 Refill [facility] 230 [place] [address] Mel Anguiano FNP 230 [place] [address] Social History Tobacco Use Types Packs/Day Years [...] AM EST Office Visit [facility] MED[facility]INE [address] [place] [address] Name, MD Nitin 230 [place] [address] documented as of this encounter Visit Diagnoses Not on filedocumented in this encounter Additional Health Concerns Assessment Noted Time PHQ-9 Depression Total Score: 6 02/13/20 24 9:14 AM EDT documented as of this encounter Care Teams Yellow Pages Space Salesperson Relationship Specialty Start Date End Date Name, MD Nitin [address] [place] [address] PCP - General Family Medicine 08/26/17 [facility] 09/01/24 documented as of this encounter
--- OUTSIDE RECORDS SUMMARY | 2025-09-18 23:56 | XMS_ITS | Encounter Summary ---
Author Organization [employer] Address 75 [facility] 7t [place] [address] Care Team Providers Care Manager Product Management Name Role Phone Name, Nitin PIKE Primary Care Provider [phone] Reason for Visit * Reason Onset Date Comments Verbal Orders 12/15/2023 Encounter Details Date Type Department Care Team ([facility] st Contact Info) Description 12/15/2023 Telephone [facility] MEDICINE 230 [place], [place] [phone] Name, MD Nitin 230 [place] [address] Verbal Orders Social History Tobacco Use Types [...] 12:03 PM EST Tc from Josseline with [employer] requesting verbal order to see pt 2 times a week for 4 weeks for Occupational Therapy, please contact Josseline at [phone] documented in this encounter Plan of Treatment Upcoming Encounters Date Type Department Care Team (Late st Contact Info) Description 11/07/2025 10:00 AM EST Office Visit [facility] MEDICINE 230 [place] [address] Name, MD Nitin [address] [place] [address] documented as of this encounter Visit Diagnoses Not on filedocumented in this encounter Additional Health Concerns Assessment Noted Time PHQ-9 Depression Total Score: 12 023 9:37 AM EDT documented as of this encounter Care Teams Manager Product Management Relationship Specialty Start Date End Date Name, MD Nitin 230 [place] [address] PCP - General Family Medicine 08/26/17 [facility] 09/01/24 documented as of this encounter
--- OUTSIDE RECORDS SUMMARY | 2025-09-18 23:56 | XMS_ITS | Clinical Summary ---
Author Organization [facility] Address [address] [place] [address] Phone Care Team Providers Care Monitoring Engineer Name Role Phone Physician, No Pcp [...] LAB CHEMISTRY METHOD 09/22/2024 3:15 AM EST [facility] Albumin 4.2 3.2 - 5.0 g/dL LAB CHEMISTRY METHOD 09/22/2024 3:15 AM EST [facility] Total Bilirubin 0.4 0.0 - 1.4 mg/dL LAB CHEMISTRY METHOD 09/22/2024 3:15 AM EST [facility] Blood Venous blood specimen / Unknown Venipuncture / Unknown 09/22/2024 2:28 AM EST 09/22/2024 2:31 AM EST Paul RUIZ LAB BLOOD ORDERABLES Final Resul t [facility] [address] [place] [address], from Last 3 Months or Most Recently Relevant to Health Maintenance Insurance [facility] MEDICARE Member Subscriber Plan / Payer (Ef fective 2021-Present) Name:Noreen Wing Relation to Subscriber:Self Name:Noreen Wing Payer ID:[id number] Group ID:[id number] Type:Not on file Address: [address] [place] [address] Care Teams Monitoring Engineer Relationship Specialty Start Date End Date Physician, No Pcp PCP - General 09/22/24
--- OUTSIDE RECORDS SUMMARY | 2025-09-18 23:56 | XMS_ITS | Encounter Summary ---
Author Organization [employer] Address 75 [facility] 7t [place] [address] Care Team Providers Care Welding Pantograph Machine Operator Name Role Phone Name, Nitin PIKE Primary Care Provider [phone] Reason for Visit * Reason Comments Med Refill Encounter Details Date Type Department Care Team (Late st Contact Info) Description 07/25/2025 Refill [facility] [address] [place], [place] [phone] Name, MD Nitin 230 [place] [address] Social History Tobacco Use Types Packs/Day Years [...] Office Visit [facility] MEDICINE [address] [place] [address] NameNitin MD [address] [place] [address] documented as of this encounter Visit Diagnoses Not on filedocumented in this encounter Additional Health Concerns Assessment Noted Time PHQ-9 Depression Total Score: 3 04/29/20 25 9:41 AM EDT documented as of this encounter Care Teams Welding Pantograph Machine Operator Relationship Specialty Start Date End Date NameNitin MD [address] [place] [address] PCP - General Family Medicine 08/26/17 [facility] 09/01/24 documented as of this encounter
--- OUTSIDE RECORDS SUMMARY | 2025-09-18 23:56 | XMS_ITS | Encounter Summary ---
Author Organization [email or web address] Address 75 [facility] 7[address] [place] [address] Care Team Providers Care Legal Research Analyst Name Role Phone Name, Nitin PIKE Primary Care Provider [phone] Reason for Visit * Reason Comments Med Refill Encounter Details Date Type Department Care Team (Late st Contact Info) Description 08/16/2024 Refill [facility] [address] [place], [place] [phone] Name, MD Nitin 230 [place] [address] Heartburn Social History Tobacco Use Types Packs/Day [...] 10:00 AM EST Office Visit [facility] MEDICINE [address] [place] [address] NameNitin MD [address] [place] [address] documented as of this encounter Visit Diagnoses Diagnosis Heartburn documented in this encounter Additional Health Concerns Assessment Noted Time PHQ-9 Depression Total Score: 6 02/13/20 24 9:14 AM EDT documented as of this encounter Care Teams Legal Research Analyst Relationship Specialty Start Date End Date NameNitin MD [address] [place] [address] PCP - General Family Medicine 08/26/17 [facility] 09/01/24 documented as of this encounter
--- OUTSIDE RECORDS SUMMARY | 2025-09-18 23:56 | XMS_ITS | Encounter Summary ---
Author Organization [employer] Address 75 [facility] 7[address] [place] [address] Care Team Providers Care Gyro Mechanic Name Role Phone Name, Nitin PIKE Primary Care Provider [phone] Reason for Visit * Reason Onset Date Comments FYI 01/21/2024 ER Follow-up 01/21/2024 Encounter Details Date Type Department Care Team ([facility] st Contact Info) Description 01/21/2024 Telephone [facility] MEDICINE 230 [place], [place] [phone] Name, MD Niitn [address] [place] [address] FYI; ER Follow-up Social History Tobacco Use [...] - 01/21/2024 1:54 PM EDT Message from [facility] [place] noted. [facility] note sent to medical records. PCP does not rx Trazodone. Pt to f/u with psych prescriber. Pt is scheduled for f/u with pcp 02/13/24. * Telephone Encounter - Janette Huitron - 01/21/2024 9:45 AM EDT Tc from nata with [facility] ED calling in regards to pt. [...] Visit [facility] MEDICINE [address] [place] [address] Name, MD Nitin [address] [place] [address] documented as of this encounter Visit Diagnoses Not on filedocumented in this encounter Additional Health Concerns Assessment Noted Time PHQ-9 Depression Total Score: 12 023 9:37 AM EDT documented as of this encounter Care Teams Gyro Mechanic Relationship Specialty Start Date End Date Name, MD Nitin [address] [place] [address] PCP - General Family Medicine 08/26/17 [facility] 09/01/24 documented as of this encounter
--- OUTSIDE RECORDS SUMMARY | 2025-09-18 23:56 | XMS_ITS | Encounter Summary ---
Author Organization [employer] Address 75 [facility] 7[address] [place] [address] Care Team Providers Care Metal Worker Name Role Phone Name, Nitin PIKE Primary Care Provider [phone] Reason for Visit * Reason Comments Med Refill Encounter Details Date Type Department Care Team (Late Contact Info) Description 03/02/[address] [facility] MEDICINE [address] [place] [address] Karely Patiño MD [address] [place] [address] [phone] Social History Tobacco Use Types Packs/Day Years [...] Description 11/07/2025 10:00 AM EST Office Visit [facility] MEDICINE [address] [place] [address] Name, MD Nitin [address] [place] [address] documented as of this encounter Visit Diagnoses Not on filedocumented in this encounter Care Teams Metal Worker Relationship Specialty Start Date End Date Name, MD Nitin 230 [place] [address] PCP - General Family Medicine 08/26/17 [facility] 09/01/24 documented as of this encounter
--- OUTSIDE RECORDS SUMMARY | 2025-09-18 23:56 | XMS_ITS | Encounter Summary ---
Author Organization [employer] Address 75 [facility] 7[address] [place] [address] Care Team Providers Care Steam Pan Sponger Name Role Phone Name, Nitin PIKE Primary Care Provider [phone] Reason for Visit * Reason Onset Date Comments Results 08/29/2023 Encounter Details Date Type Department Care Team ([facility] st Contact Info) Description 08/29/2023 Telephone [facility] MEDICINE 230 [place], [place] [phone] Name, MD Nitin 230 [place] [address] Results Social History Tobacco Use Types Packs/Day [...] 11:51 AM EDT Pt evaluated in [facility] today and is scheduled with pcp 09/03/23. * Telephone Encounter - Janette Huitron - 08/29/2023 4:06 PM EDT Tc from pt requesting a call in regards to urine results. Please contact pt at [phone] (Gibraltarian) documented in this encounter Plan of Treatment Upcoming Encounters Date Type Department Care Team (Late st Contact Info) Description 11/07/2025 10:00 AM EST Office Visit [facility] MEDICINE [address] [place] [address] Name, MD Nitin [address] [place] [address] documented as of this encounter Visit Diagnoses Not on filedocumented in this encounter Additional Health Concerns Assessment Noted Time PHQ-9 Depression Total Score: 12 023 9:37 AM EDT documented as of this encounter Care Teams Steam Pan Sponger Relationship Specialty Start Date End Date Name, MD Nitin [address] [place] [address] PCP - General Family Medicine 08/26/17 [facility] 09/01/24 documented as of this encounter
--- OUTSIDE RECORDS SUMMARY | 2025-09-18 23:56 | XMS_ITS | Encounter Summary ---
Author Organization [employer] Address 75 [facility] 7t [place] [address] Care Team Providers Care Intranet Developer Name Role Phone Name, Nitin PIKE Primary Care Provider [phone] Encounter Details Date Type Department Care Team [...] Office Visit [facility] MEDICINE [address] [place] [address] Name, MD Nitin 230 [place] [address] documented as of this encounter Procedures Procedure Name Priority Date/Time Associated Diagnosis Comments GLUCOSE, WHOLE BLOOD Routine 09/17/2025 7:24 AM EST documented in this encounter Results * Glucose, Whole Blood (09/17/2025 7:24 AM EST) Glucose, Whole Blood 98 60 - 115 mg/dL [facility] Comment:METER #: [id number] 09/17/2025 7:24 AM EST 09/17/2025 7:28 AM EST us Generic External Data Provider LAB BLOOD ORDERAB LES Final Result [facility] [address] [place] [address] [phone] documented in this encounter Visit Diagnoses Not on filedocumented in this encounter Additional Health Concerns Assessment Noted Time PHQ-9 Depression Total Score: 3 04/29/20 25 9:41 AM EDT documented as of this encounter Care Teams Intranet Developer Relationship Specialty Start Date End Date Name, MD Nitin [address] [place] [address] PCP - General Family Medicine 08/26/17 [facility] 09/01/24 documented as of this encounter
--- OUTSIDE RECORDS SUMMARY | 2025-09-18 23:56 | XMS_ITS | Encounter Summary ---
Author Organization [employer] Address 75 [facility] 7[address] [place] [address] Care Team Providers Care Clinical Editor Name Role Phone Name, Nitin PIKE Primary Care Provider [phone] Reason for Visit * Reason Onset Date Comments ER Follow-up 05/04/2024 Encounter Details Date Type Department Care Team ([facility] Contact Info) Description 05/04/2024 Telephone [facility] [address] [place], [place] [phone] Name, MD Nitin 230 [place] [address] ER Follow-up Social History Tobacco Use Types [...] 11:01 AM EDT [place] - [id number] for below message, No answer. LVM to call back [phone] . * Telephone Encounter - Adithya Solorzano - 05/04/2024 9:35 AM EDT Noreen with [facility] calling to report ED visit on : Date: 04/28 Hospital: [facility] Seen for: UTI, Nausea, Rash. Noreen advised will be forwarding message to team nurses. Please contact pt at [phone]. documented in this encounter Plan of Treatment Upcoming Encounters Date Type Department Care Team (Late st Contact Info) Description 11/07/2025 10:00 AM EST Office Visit [facility] [address] [place] [address] Name, MD Nitin [address] [place] [address] documented as of this encounter Visit Diagnoses Not on filedocumented in this encounter Additional Health Concerns Assessment Noted Time PHQ-9 Depression Total Score: 6 02/13/20 9:14 AM EDT documented as of this encounter Care Teams Clinical Editor Relationship Specialty Start Date End Date Name, MD Nitin [address] [place] [address] PCP - General Family Medicine 08/26/17 [facility] 09/01/24 documented as of this encounter
--- OUTSIDE RECORDS SUMMARY | 2025-09-18 23:56 | XMS_ITS | Encounter Summary ---
Author Organization [employer] Address [address] [facility] [address] [place] [address] Care Team Providers Care Cam Maker Name Role Phone Name, Nitin PIKE Primary Care Provider [phone] Reason for Visit * Reason Onset Date Comments Call Back Request 03/14/2025 Encounter Details Date Type Department Care Team ([facility] st Contact Info) Description 03/14/2025 Telephone [facility] MEDICINE [address] [place], [place] [phone] Name, MD Nitin [address] [place] [address] Call Back Request Social History Tobacco Use [...] [facility] 230 [place] [address] Name, MD Nitin [address] [place] [address] documented as of this encounter Visit Diagnoses Not on filedocumented in this encounter Additional Health Concerns Assessment Noted Time PHQ-9 Depression Total Score: 6 02/13/20 9:14 AM EDT documented as of this encounter Care Teams Cam Maker Relationship Specialty Start Date End Date Name, MD Nitin [address] [place] [address] PCP - General Family Medicine 08/26/17 [facility] 09/01/24 documented as of this encounter
--- OUTSIDE RECORDS SUMMARY | 2025-09-18 23:56 | XMS_ITS | Encounter Summary ---
Author Organization [employer] Address [address] [facility] [address] [place] [address] Care Team Providers Care Basic Sciences Dean Name Role Phone Name, Nitin PIKE Primary Care Provider [phone] Reason for Visit * Reason Onset Date Comments ER Follow-up 05/31/2024 Encounter Details Date Type Department Care Team ([facility] Contact Info) Description 05/31/2024 Telephone [facility] MEDICINE [address] [place], [place] [phone] Name, MD Nitin [address] [place] [address] ER Follow-up Social History Tobacco Use Types [...] 05/31/2024 1:36 PM EDT T/C to Pat ([facility]) [phone] for below message, no answer. LVM to call back on [phone]. * Telephone Encounter - Melany Santos RN - 05/31/2024 1:32 PM EDT DAVID T/C to pt. Through [employer] id - [id number] for below message, pt. Had recent fall and ED visit at [facility]. RN will request GRACE piedra from [facility]. Pt. Is doing good, states I am tired andsleeping. Pt. Dose not has any question or concern right now. Pt. Already has HDF apt. Schedule on 06/10/2024. Pt. Advised to give call to [facility] if any questions or concerns. Pt. [...] Office Visit [facility] MEDICINE [address] [place] [address] Name, MD Nitin [address] [place] [address] documented as of this encounter Visit Diagnoses Not on filedocumented in this encounter Additional Health Concerns Assessment Noted Time PHQ-9 Depression Total Score: 6 02/13/20 24 9:14 AM EDT documented as of this encounter Care Teams Basic Sciences Dean Relationship Specialty Start Date End Date Name, MD Nitin [address] [place] [address] PCP - General Family Medicine 08/26/17 [facility] 09/01/24 documented as of this encounter
--- OUTSIDE RECORDS SUMMARY | 2025-09-18 23:56 | XMS_ITS | Encounter Summary ---
Author Organization [employer] Address 75 [facility] [address] [place] [address] Care Team Providers Care Silk Screen Printer Machine Name Role Phone Name, Nitin PIKE Primary Care Provider [phone] Reason for Visit * Reason Onset Date Comments Durable Medical Equipment 12/09/2023 Encounter Details Date Type Department Care Team ([facility] st Contact Info) Description 12/09/2023 Telephone [facility] MEDICINE 230 [place], [place] [phone] Name, MD Nitin 230 [place], [place] [phone] Durable Medical Equipment Social History Tobacco Use [...] AM EST DME rx faxed to [facility] as requested. RN will consult with S nurse and provide referral. * Telephone Encounter - Fozia Jacob RN - 12/09/2023 4:58 PM EST Call returned to [facility] at [facility] [phone] ext. [phone]. [facility] states that [facility] attempted to provide PT at home but pt refused. [facility] pt is requesting outpatient PT. [facility] pt is seeing a counselor more regularly and has agreed to VNA referral. Reports pt has had 3 falls in the past 2 months. [facility] states [facility] no longer has visiting nurses. [facility] recommends [facility] or [facility] for VNA referral. [facility] also requesting DME rx for rollator walker and a straight cane. Requests that DME rx be faxed to [phone]. Advised requests will be sent to pcp. * Telephone Encounter - Adithya Solorzano - 12/09/2023 4:25 PM EST Tc from [facility] requesting DME: Rollator walker . documented in this encounter Plan of Treatment Upcoming Encounters Date Type Department Care Team (Late st Contact Info) Description 11/07/2025 10:00 AM EST Office Visit [facility] MEDICINE 230 [place] [address] Name, MD Nitni [address] [place] [address] documented as of this encounter Visit Diagnoses Not on filedocumented in this encounter Additional Health Concerns Assessment Noted Time PHQ-9 Depression Total Score: 12 023 9:37 AM EDT documented as of this encounter Care Teams Silk Screen Printer Machine Relationship Specialty Start Date End Date Name, MD Nitin [facility] [place] [address] PCP - General Family Medicine 08/26/17 [facility] 09/01/24 documented as of this encounter
--- OUTSIDE RECORDS SUMMARY | 2025-09-18 23:56 | XMS_ITS | Encounter Summary ---
Author Organization [employer] Address 75 [facility] 7[address] [place] [address] Care Team Providers Care Knitter Helper Name Role Phone Name, Nitin PIKE Primary Care Provider [phone] Reason for Visit * Reason Onset Date Comments Referral 08/24/2025 Encounter Details Date Type Department Care Team ([facility] st Contact Info) Description 08/24/[address] [facility] MEDICINE 230 [place], [place] [phone] Name, MD Nitin [address] [place] [address] Referral Social History Tobacco Use Types Packs/Day [...] DATE: 09/21/25 TIME: 10 am Facility Name: [facility] PT Type of Specialist: Physical therapy Facility Phone # : [phone] Fax #: [phone] documented in this encounter Plan of Treatment Upcoming Encounters Date Type Department Care Team (Late st Contact Info) Description 11/07/2025 10:00 AM EST Office Visit [facility] MEDICINE [address] [place], [place] [phone] Name, MD Nitin [address] [place] [address] documented as of this encounter Visit Diagnoses Not on filedocumented in this encounter Additional Health Concerns Assessment Noted Time PHQ-9 Depression Total Score: 3 04/29/20 9:41 AM EDT documented as of this encounter Care Teams Knitter Helper Relationship Specialty Start Date End Date Name, MD Nitin [address] [place] [address] PCP - General Family Medicine 08/26/17 [facility] 09/01/24 documented as of this encounter
--- OUTSIDE RECORDS SUMMARY | 2025-09-18 23:56 | XMS_ITS | Encounter Summary ---
Author Organization [employer] Address 75 [facility] 7[address] [place] [address] Care Team Providers Care University Registrar Name Role Phone Name, Nitin PIKE Primary Care Provider [phone] Reason for Visit * Reason Onset Date Comments Order(s) 12/09/2023 Encounter Details Date Type Department [facility] Team ([facility] Description 12/09/2023 Telephone [facility] MEDICINE 230 [place], [place] [phone] Name, MD Nitin 230 [place], [place] [phone] Order(s) Social History Tobacco Use Types Packs/Day [...] orders. If any questions please contact Noreen [phone]. documented in this encounter Plan of Treatment Upcoming Encounters Date Type Department Care Team (Late st Contact Info) Description 11/07/2025 10:00 AM EST Office Visit [facility] MEDICINE [address] [place] [address] Name, MD Nitin 230 [place] [address] documented as of this encounter Visit Diagnoses Not on filedocumented in this encounter Additional Health Concerns Assessment Noted Time PHQ-9 Depression Total Score: 12 023 9:37 AM EDT documented as of this encounter Care Teams University Registrar Relationship Specialty Start Date End Date Name, MD Nitin [address] [place] [address] PCP - General Family Medicine 08/26/17 [facility] 09/01/24 documented as of this encounter
--- OUTSIDE RECORDS SUMMARY | 2025-09-18 23:56 | XMS_ITS | Encounter Summary ---
Author Organization [employer] Address [address] [facility] 7t [place] [address] Care Team Providers Care Beauty Operator Apprentice Name Role Phone Name, Nitin PIKE Primary Care Provider [phone] Encounter Details Date Type Department Care Team (Late st Contact Info) Description 09/18/2025 Orders Only [facility] External Provider, [facility] Social History Tobacco Use Types Packs/Day [...] [facility] MEDICINE [address] [place] [address] Name, MD Nitin [address] [place] [address] documented as of this encounter Procedures Procedure Name Priority Date/Time Associated Diagnosis Comments XR KNEE 4+ VIEWS LEFT Routine 09/18/2025 3:36 PM EST documented in this encounter Results * XR Knee 4+ Views Left (09/18/2025 3:36 PM EST) Anatomical Region Laterality Modality Lower Extremities, Knee Left [facility] Imaging 09/18/2025 3:36 PM EST Narrative 09/18/2025 3:39 PM EST [address] [address] XRay Report Signed Patient: Noreen Wing MR#: [id number] : 1945 Acct:[id number] Age/Sex: 79 / F ADM Date: 09/18/25 Loc: .ED Attending Dr: Ordering Physician: Cuco Amador Date of Service: 09/18/25 Procedure(s): XR knee LT 4V Accession Number(s): [id number] cc: Cuco Amador; Name,Nitin PIKE Reason for [...] Sherman MD in OV> 09/18/25 1538 DD/ 153 TD/TT: 09/18/25 153 Filtration Supervisor: Procedure Note Donotuseinterpreter, Image - 09/18/2025 [place] [address] XRay Report Signed Patient: Noreen WingMR#: [id number] : 1945cct:[id number] Age/Sex: 79 / FADM Date: 09/18/25 Loc: .ED Attending Dr: Ordering Physician: Cuco Amador Date of Service: 09/18/25 Procedure(s): XR knee LT 4V Accession Number(s): [id number] cc: Cuco Amador; Name,Nitin PIKE Reason for [...] 09/18/25 1538 DD/ 1536 TD/TT: 09/18/25 1536 Filtration Supervisor: [facility] External Provider IMG XR PROCEDURES Edited Result - Final documented in this encounter Visit Diagnoses Not on filedocumented in this encounter Additional Health Concerns Assessment Noted Time PHQ-9 Depression Total Score: 3 04/29/20 25 9:41 AM EDT documented as of this encounter Care Teams Beauty Operator Apprentice Relationship Specialty Start Date End Date Name, MD Nitin 230 [place] [address] PCP - General Family Medicine 08/26/17 [facility] 09/01/24 documented as of this encounter
--- OUTSIDE RECORDS SUMMARY | 2025-09-18 23:56 | XMS_ITS | Encounter Summary ---
Author Organization [employer] Address [address] [facility] 7[address] [place] [address] Care Team Providers Care Director Of Residence Life Name Role Phone Name, Nitin PIKE Primary Care Provider [phone] Reason for Visit * Reason Comments Med Refill Encounter Details Date Type Department Care Team ([facility] st Contact Info) Description 04/01/2024 Refill [facility] MEDICINE 230 [place], [place] [phone] Name, MD Nitin [address] [place] [address] Rash Social History Tobacco Use Types Packs/Day [...] Description 11/07/2025 10:00 AM EST Office Visit [facility] MEDICINE [address] [place] [address] NameNitin MD [address] [place] [address] documented as of this encounter Visit Diagnoses Diagnosis Rash Rash and other nonspecific skin eruption documented in this encounter Additional Health Concerns Assessment Noted Time PHQ-9 Depression Total Score: 6 02/13/20 24 9:14 AM EDT documented as of this encounter Care Teams Director Of Residence Life Relationship Specialty Start Date End Date NameNitin MD [address] [place] [address] PCP - General Family Medicine 08/26/17 [facility] 09/01/24 documented as of this encounter
--- OUTSIDE RECORDS SUMMARY | 2025-09-18 23:56 | XMS_ITS | Encounter Summary ---
Author Organization [employer] Address [address] [facility] 7[address] [place] [address] Care Team Providers Care Pie Chef Name Role Phone Name, Nitin PIKE Primary Care Provider [phone] Encounter Details Date Type Department Care Team (Late st Contact Info) Description 11/06/2022 Orders Only [facility] MED & PEDS [address] [place], [place] [phone] Lisha Kelly LPN Social History Tobacco Use [...] Description 11/07/2025 10:00 AM EST Office Visit [facility] MEDICINE 230 [place] [address] NameNitin MD 230 [place] [address] documented as of this encounter Visit Diagnoses Not on filedocumented in this encounter Care Teams Pie Chef Relationship Specialty Start Date End Date Nitin Echevarria MD 230 [place] [address] PCP - General Family Medicine 08/26/17 [facility] 09/01/24 documented as of this encounter
--- OUTSIDE RECORDS SUMMARY | 2025-09-18 23:56 | XMS_ITS | Encounter Summary ---
Author Organization [employer] Address 75 [facility] 7[address] [place] [address] Care Team Providers Care Brim And Crown Presser Name Role Phone Name, Nitin PIKE Primary Care Provider Reason for Visit * Reason Comments Med Refill Encounter Details Date Type Department Care Team (Late st Contact Info) Description 08/17/2025 Refill [facility] MEDICINE 230 [place], [place] [phone] Miryam Riley NP 230 [place] [address] Hypertension, unspecified type Social History Tobacco Use [...] housing situation today? I have calus rawls 08/09/[address] you [...] EST Office Visit [facility] MEDICINE [address] [place] [address] NameNitin MD 230 [place] [address] documented as of this encounter Visit Diagnoses Diagnosis Hypertension, unspecified type documented in this encounter Additional Health Concerns Assessment Noted Time PHQ-9 Depression Total Score: 3 04/29/20 25 9:41 AM EDT documented as of this encounter Care Teams Brim And Crown Presser Relationship Specialty Start Date End Date Name, MD Nitin [address] [place] [address] PCP - General Family Medicine 08/26/17 [facility] 09/01/24 documented as of this encounter
--- OUTSIDE RECORDS SUMMARY | 2025-09-18 23:56 | XMS_ITS | Encounter Summary ---
Author Organization [employer] Address [address] [facility] 7[address] [place] [address] Care Team Providers Care Sheet Metal Insulator Name Role Phone Name, Nitin PIKE Primary Care Provider [phone] Reason for Visit * Reason Onset Date Comments Hospital Follow-up 10/20/2024 Encounter Details Date Type Department Care Team ([facility] Contact Info) Description 10/20/2024 Telephone [facility] MEDICINE 230 [place], [place] [phone] Name, MD Nitin 230 [place] [address] Hospital Follow-up Social History Tobacco Use Types [...] from pt requesting a HDF appt. [facility] Date of admission: 10/17 Discharge date: 10/19 Diagnosed: High Blood Pressure and Fever Contact pt at [phone] *Send message to [facility] documented in this encounter Plan of Treatment Upcoming Encounters Date Type Department Care Team (Late st Contact Info) Description 11/07/2025 10:00 AM EST Office Visit [facility] MEDICINE 230 [place] [address] Name, MD Nitin 230 [place] [address] documented as of this encounter Visit Diagnoses Not on filedocumented in this encounter Additional Health Concerns Assessment Noted Time PHQ-9 Depression Total Score: 6 02/13/20 24 9:14 AM EDT documented as of this encounter Care Teams Sheet Metal Insulator Relationship Specialty Start Date End Date Name, MD Nitin 230 [place] [address] PCP - General Family Medicine 08/26/17 [facility] 09/01/24 documented as of this encounter
--- OUTSIDE RECORDS SUMMARY | 2025-09-18 23:56 | XMS_ITS | Encounter Summary ---
Author Organization [employer] Address [address] [facility] 7[address] [place] [address] Care Team Providers Care Communications Programmer Name Role Phone Name, Nitin PIKE Primary Care Provider [phone] Reason for Visit * Reason Onset Date Comments triage 12/18/2022 Encounter Details Date Type Department Care Team ([facility] st Contact Info) Description 12/18/2022 Telephone [facility] MEDICINE 230 [place], [place] [phone] Name, MD Nitin 230 [place] [address] triage Social History Tobacco Use Types Packs/Day [...] 12/18/2022 2:35 PM EST Called pt. Via [employer] enforcement safety officer [id number] Eduardo. Pt. States that she has a [...] Office Visit [facility] MEDICINE [address] [place] [address] Name, MD Nitin 230 [place] [address] documented as of this encounter Visit Diagnoses Not on filedocumented in this encounter Care Teams Communications Programmer Relationship Specialty Start Date End Date Name, MD Nitin [address] [place] [address] PCP - General Family Medicine 08/26/17 [facility] 09/01/24 documented as of this encounter
--- OUTSIDE RECORDS SUMMARY | 2025-09-18 23:56 | XMS_ITS | Encounter Summary ---
Author Organization [employer] Address [address] [facility] 7[address] [place] [address] Care Team Providers Care Court Of Appeals Judge Name Role Phone Name, Nitin PIKE Primary Care Provider [phone] Encounter Details Date Type Department Care Team ([facility] Contact Info) Description 01/06/2023 Orders Only [facility] CH[facility] MED & PEDS [address] [place], [place] [phone] Lisha Kelly LPN Social History Tobacco Use [...] Description 11/07/2025 10:00 AM EST Office Visit [facility] MEDICINE 230 [place] [address] NameNitin MD 230 [place] [address] documented as of this encounter Visit Diagnoses Not on filedocumented in this encounter Care Teams Court Of Appeals Judge Relationship Specialty Start Date End Date NameNitin MD 230 [place] [address] PCP - General Family Medicine 08/26/17 [facility] 09/01/24 documented as of this encounter
--- NOTE | 2025-09-19 | ECG_ITS ---
Test Reason : VERTIGO Blood Pressure : */* mmHG Vent. Rate : 114 BPM Atrial Rate : 114 BPM P-R Int : 216 ms QRS Dur : 100 ms QT Int : 330 ms P-R-T Axes : 13 -34 34 degrees QTcB Int : 454 ms Sinus tachycardia with 1st degree A-V block Left axis deviation Moderate voltage criteria for LVH, may be normal variant ( R in aVL , Maycol product ) Abnormal ECG When compared with ECG of 03-Sep-2025 13:59, Vent. rate has increased by 39 bpm Referred By: Generic ED Physician Electronically Signed By: KATRINA PARSONS MD
--- NOTE | 2025-09-19 00:08 | PC.NURSE ---
pt reports feeling dizzy before she fell in the bathroom, reports hx of vertigo. Pt has a bump on R top of head, pt confirms pain 8/10, respirations even and unlabored.
[2025-09-19 00:30] LABS: MANUAL DIFF FLAG NO
[2025-09-19 00:32] LABS: Hematocrit 33.0 % (37.0-47.0); Hemoglobin 10.9 g/dl (12.0-16.0); Imm Gran Abs Auto 0.02 X10*3/uL (0.00-0.03); Imm Gran Pct Auto 0.4 % (0.0-0.4); Lymphocytes Absolute Auto 1.3 X10*3/uL (1.2-4.9); Mean Corpuscular HGB Conc 33.0 g/dl (31.0-35.0); Mean Corpuscular Hemoglobin 27.9 pg (27.0-33.0); Mean Corpuscular Volume 84.6 fL (80.0-98.0); NRBC Abs Auto 0.000 X10*3/uL (0.0-0.012); NRBC Pct Auto 0.0 /100WBC (0.0-0.2); Platelet Count 272 X10*3/uL (160-400); Red Blood Count 3.90 X10*6/uL (4.20-5.50); White Blood Count 5.7 X10*3/uL (4.8-10.8)
[2025-09-19 00:38] LABS: INTERNATIONAL NORM RATIO 1.0 (0.9-1.1); Prothrombin Time 12.5 SEC (11.2-13.5)
[2025-09-19 00:59] LABS: Alanine Aminotransferase 14 U/L (0-31); Albumin Level 4.1 g/dL (3.5-5.0); Alkaline Phosphatase 92 U/L (39-117); Anion Gap 14 (12-20); Aspartate Amino Transferase 26 U/L (5-31); Blood Urea Nitrogen 33 mg/dL (9-16); Calcium 8.9 mg/dL (8.4-10.2); Carbon Dioxide 25 mmol/L (22-29); Chloride 101 mmol/L (96-108); Creatinine Clr Calc Pharmacy 45.4; Estimated Glomerular Filt Rate 54; Potassium 4.1 mmol/L (3.3-5.1); Sodium 136 mmol/L (135-145); Total Protein 7.6 g/dL (6.5-8.0)
[2025-09-19 01:01] LABS: Troponin-I High Sensitivity < 2.7 ng/L (<3.5-17.0)
[2025-09-19 02:10] VITALS: BP 143/71; PULSE 79; RESP 16; TEMP 36.8; O2SAT 95
[2025-09-19 03:28] LABS: Appearance Urine Clear; Glucose Urine UA Negative (Negative); PH 5.5 (5.0-9.0); Specific Gravity - Urine 1.020 (1.005-1.025); UMIC TRIGGER UACC YES
[2025-09-19 03:33] LABS: UACC Culture Trigger YES
--- NOTE | 2025-09-19 04:53 | ED.FALL ---
HPI - Fall General Chief Complaint: Fall Stated Complaint: TRIP/FALL,HIT HEAD,-LOC,-THINNER,RECENT D/C PER EM Time Seen by Provider: 09/19/25 01:55 Source: patient, EMS, RN notes reviewed and old records reviewed Mode of arrival: EMS Limitations: language barrier History of Present Illness ED Provider: Dr. Marium Ny HPI Narrative: 79-year-old female with extensive past medical history including hypertension, hyperlipidemia, anxiety, osteoarthritis, dementia, SVT, CKD, pulmonary embolism previously on Eliquis presenting with headache and neck pain after a fall that occurred at home. Patient reports that she had a mechanical fall at home, hit the right side of her head. C-collar was placed by EMS. Patient no longer takes anticoagulants according to her. She does not think that she passed out completely. Describes a slight headache the parietal scalp where she hit her head on the wall. No numbness/tingling/weakness of the extremities. No vision changes. This is her 3rd emergency department visit in the last 48 hours for various complaints including vertigo and knee pain. Related Data Home Medications ?Medication ?Instructions ?Recorded ?Confirmed omeprazole 20 mg tablet,delayed 20 mg PO DAILY@0630 08/09/20 08/22/25 release aspirin 81 mg tablet,delayed 81 mg PO QAM 01/28/24 08/22/25 release bisacodyl 5 mg tablet,delayed 5 mg PO DAILY PRN constipation 01/28/24 08/22/25 release ferrous sulfate 325 mg (65 mg 325 mg PO DAILY 01/28/24 08/22/25 iron) tablet (FeroSul) melatonin 10 mg tablet,extended 10 mg PO BEDTIME PRN Insomnia 01/28/24 08/22/25 release multivitamin 1 tab PO QAM 01/28/24 08/22/25 rosuvastatin 20 mg tablet 20 mg PO BEDTIME 01/28/24 08/22/25 trazodone 50 mg tablet 50 mg PO BEDTIME 01/28/24 08/22/25 amlodipine 10 mg tablet 10 mg PO DAILY 02/09/24 08/22/25 acetaminophen 500 mg tablet 500 mg PO Q8H PRN pain 08/09/24 08/22/25 cholecalciferol (vitamin D3) 25 25 mcg PO DAILY 08/20/24 08/22/25 mcg (1,000 unit) tablet sertraline 100 mg tablet 100 mg PO DAILY 03/16/25 08/22/25 apixaban 5 mg tablet 5 mg PO BID 08/22/25 08/22/25 clonazepam 0.5 mg tablet 0.5 mg PO TID 08/22/25 08/22/25 fluticasone propionate 50 2 spray intranasal DAILY PRN 08/22/25 08/22/25 mcg/actuation nasal Allergic Symptoms spray,suspension (Flonase Allergy Relief) hydroxyzine HCl 25 mg tablet 10 mg PO DAILY PRN anxiety 08/22/25 08/22/25 ketotifen fumarate 0.025 % (0.035 1 drp ophthalmic (eye) BID PRN 08/22/25 08/22/25 %) eye drops allergies mirtazapine 45 mg tablet 45 mg PO BEDTIME 08/22/25 08/22/25 valsartan 160 mg tablet 160 mg PO QPM 08/22/25 08/22/25 Previous Rx's ?Medication ?Instructions ?Recorded metoprolol succinate 50 mg 50 mg PO DAILY #90 tabs 09/28/20 tablet,extended release 24 hr docusate sodium 100 mg capsule 200 mg (2 x 100 mg) PO BID #20 caps 02/24/25 (Colace) ibuprofen 200 mg tablet 200 mg PO Q6H PRN pain #20 tabs 07/24/25 meclizine 12.5 mg tablet 12.5 mg PO TID PRN dizziness or 07/26/25 vertigo #30 tabs Allergies Allergy/AdvReac Type Severity Reaction Status Date / Time penicillin G (Penicillin G) Allergy Severe ITCHY/RASH Verified 09/18/25 23:51 Sulfa (Sulfonamide Allergy Severe ITCHY,RASH, Verified 09/18/25 23:51 Antibiotics) (Sulfa rash (Sulfonamides)) trimethoprim (From Bactrim) Allergy Severe HIVES Verified 09/18/25 23:51 Penicillins Allergy Intermediate Hives Verified 09/18/25 23:51 sulfamethoxazole (From Allergy Mild Hives Verified 09/18/25 23:51 Bactrim) Review of Systems Review of Systems: As per HPI, full review of systems performed and negative but for the above mentioned pertinent positives and negatives. [facility] Past Medical History 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 or 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 (snuff blender) Alcohol intake: never Patient Tobacco Use Status: Never used Tobacco Advance Directives: Yes Advance Directives on File: Yes Advance Directives Date on File: 01/28/24 service: No Physical Exam Exam: Exam: GENERAL: Anxious, tearful. SKIN: Normal skin color for ethnicity, warm, dry, intact, no rashes noted. HEENT: Normocephalic, left parietal scalp contusion, no bogginess to the scalp, no abrasion/skin tear, no stridor, posterior oropharynx nonerythematous, dentition intact, EOMI. NECK: Soft, supple, full ROM, midline structures nontender, no step-offs, no deformities, no lymphadenopathy. CHEST: Heart regular rhythm, no murmurs, symmetric chest rise and fall, no crepitus. PULMONARY: Clear to auscultation bilaterally, no labored breathing, no wheezes/rhales/ rhonchi. ABDOMINAL: Soft, nondistended, nontender, positive bowel sounds in all quadrants. : Deferred. MUSCULOSKELETAL: Normal tone, limited range of motion in the left knee, no deformities, no peripheral edema. NEURO: Alert and oriented x3, CN II through XII intact, equal strength and sensation bilateral upper and lower extremities, no focal neurologic deficits, walks with a steady gait. PSYCHIATRIC: Anxious affect, tearful, fluid speech, good eye contact and appropriate demeanor. Vital Signs: Vital Signs: Last Vital Signs Temp 98.2 F 09/19/25 02:10 Pulse 79 09/19/25 02:10 Resp 16 09/19/25 02:10 BP 143/71 H 09/19/25 02:10 Pulse Ox 95 09/19/25 02:10 O2 Del Method Room Air 09/19/25 02:10 BMI result Body Mass Index 34.7 Medical Decision Making Medical Decision Making [facility] Narrative: Patient presents today with chief complaint of trauma after a fall at home. Different diagnosis on this patient includes intracranial hemorrhage, skull fracture, neck injury including fracture or spinal cord pathology. Other diagnoses considered would include chest or abdominal trauma as well as long bone fractures. Based on my physical exam, the ordered imaging modalities are indicated. The patient specifically does not show any signs of central cord syndrome as evidenced by equal strength in the upper extremities with normal two-point discrimination. Sensation is not altered. GCS is appropriate. Patient is neurovascularly intact. There are no signs of vascular emergency. No signs of shock. No respiratory distress. Patient was given Tylenol for pain control. Noreen is very well known to this emergency department. This is her 3rd visit in the last 48 hours to the emergency department for various complaints including chronic knee pain and vertigo. She was medicated with meclizine and hydroxyzine during her last visits and I worry that she is at high risk for polypharmacy. She is begging me for an anxiolytic however, given her recent falls, I do not feel comfortable giving her any further sedating medications. She has follow up with primary care on Friday. Encouraged her to follow-up and discussed return precautions. She will be discharged home to take her home medications. Differential Diagnosis Differential Diagnoses: The differential diagnosis associated with the presentation includes (as above) Admission/Observation Consideration of admission/observation: Escalation of care including admission/observation considered Lab Data [facility] Lab Attestation statement: I reviewed the patient's lab results. 09/19/25 00:26 09/19/25 00:26 Labs: Lab Results 09/19/25 09/19/25 Range/Units 00:26 03:15 WBC 5.7 (4.8-10.8) X10*3/uL RBC 3.90 L (4.20-5.50) X10*6/uL Hgb 10.9 L (12.0-16.0) g/dl Hct 33.0 L (37.0-47.0) % MCV 84.6 (80.0-98.0) fL MCH 27.9 (27.0-33.0) pg MCHC 33.0 (31.0-35.0) g/dl RDW 14.0 (11.0-16.0) % Plt Count 272 (160-400) X10*3/uL MPV 8.2 L (9.4-12.3) fL Immature Gran % (Auto) 0.4 (0.0-0.4) % Neut % (Auto) 63.3 (45-73) % Lymph % (Auto) 23.4 (20-40) % [place] % (Auto) 10.4 (2-11) % Eos % (Auto) 1.6 (0-4) % Baso % (Auto) 0.9 (0-2) % Lymph # (Auto) 1.3 (1.2-4.9) X10*3/uL [place] # (Auto) 0.6 (0.1-1.2) X10*3/uL Eos # (Auto) 0.1 (0.0-0.4) X10*3/uL Baso # (Auto) 0.1 (0.0-0.2) X10*3/uL Abs Immat Gran (auto) 0.02 (0.00-0.03) X10*3/uL Absolute Neuts (auto) 3.6 (2.0-8.3) x10*3/uL Absolute Nucleated RBC 0.000 (0.0-0.012) X10*3/uL Nucleated RBC % (auto) 0.0 (0.0-0.2) /100WBC PT 12.5 (11.2-13.5) SEC INR 1.0 (0.9-1.1) Sodium 136 (135-145) mmol/L Potassium 4.1 (3.3-5.1) mmol/L Chloride 101 (96-108) mmol/L Carbon Dioxide 25 (22-29) mmol/L Anion Gap 14 (12-20) BUN 33 H (9-16) mg/dL Creatinine 0.99 (0.5-1.4) mg/dL Estim Creat Clear Calc 45.4 Estimated GFR 54 Random Glucose 108 (60-115) mg/dL Calcium 8.9 (8.4-10.2) mg/dL Total Bilirubin 0.3 (0.0-1.0) mg/dL AST 26 (5-31) U/L ALT 14 (0-31) U/L Alkaline Phosphatase 92 (39-117) U/L Troponin I High Sens < 2.7 (<3.5-17.0) ng/L Total Protein 7.6 (6.5-8.0) g/dL Albumin 4.1 (3.5-5.0) g/dL Urine Color Yellow Urine Appearance Clear Urine pH 5.5 (5.0-9.0) Ur Specific [place] 1.020 (1.005-1.025) Urine Protein Negative (Neg-Trace) mg/dL Urine Glucose (UA) Negative (Negative) mg/dL Urine Ketones Negative (Negative) mg/dL Urine Blood Negative (Negative) Urine Nitrite Negative (Negative) Ur Leukocyte Esterase Moderate (2+) H (Negative) Urine RBC 0-2 (0-2) /HPF Urine WBC 21-50 H (0-5) /HPF Ur Squamous Epith Cells 0-2 (0-2) /HPF Urine Bacteria None Seen (None Seen) Hyaline Casts 0-2 (0-2) /LPF Independent Interpretation I performed an independent interpretation of an: EKG Interpretation: My independent interpretation of the ECG reveals normal sinus tachycardia with rate of 114, leftward axis, first-degree AV block with a TN interval of 216, no ST elevations or depressions to suggest ischemic changes, relatively unchanged from previous on 09/03/2025. Radiology Impression Discussion of test interpretation with radiology: I have reviewed the radiologist's reading. Radiologist Impression: No acute intracranial or C-spine trauma Independent Historian Clinical information obtained from an independent historian. History obtained from or confirmed by: EMS External Record Review External record reviewed: Inpatient record Chronic Conditions Patient?s care impacted by: Diabetes, Hypertension and Other (CKD, dementia) Social Determinants Patient?s care significantly limited by Social Determinants of Health including: Problems related to primary support group and Other Social Determinant of Health Discharge Plan Discharge Clinical Impression: Fall from ground level, Contusion of scalp, initial encounter, Vertigo, Generalized anxiety disorder with panic attacks Prescriptions: No Action metoprolol succinate 50 mg tablet extended release 24 hr 50 mg PO DAILY Qty: 90 2RF omeprazole 20 mg Tablet,Delayed Release (Dr/Ec) 20 mg PO DAILY@0630 meclizine 12.5 mg tablet 12.5 mg PO TID PRN (Reason: dizziness or vertigo) Qty: 30 0RF trazodone 50 mg tablet 50 mg PO BEDTIME ferrous sulfate [FeroSul] 325 mg (65 mg iron) tablet 325 mg PO DAILY bisacodyl 5 mg tablet,delayed release (DR/EC) 5 mg PO DAILY PRN (Reason: constipation) rosuvastatin 20 mg tablet 20 mg PO BEDTIME aspirin 81 mg tablet,delayed release (DR/EC) 81 mg PO QAM multivitamin Tablet 1 tab PO QAM melatonin 10 mg tablet extended release 10 mg PO BEDTIME PRN (Reason: Insomnia) cholecalciferol (vitamin D3) 25 mcg (1,000 unit) tablet 25 mcg PO DAILY acetaminophen 500 mg tablet 500 mg PO Q8H PRN (Reason: pain) docusate sodium [Colace] 100 mg capsule 200 mg PO BID Qty: 20 0RF ibuprofen 200 mg tablet 200 mg PO Q6H PRN (Reason: pain) Qty: 20 0RF ketotifen fumarate 0.025 % (0.035 %) drops 1 drp ophthalmic (eye) BID PRN (Reason: allergies) mirtazapine 45 mg tablet 45 mg PO BEDTIME clonazepam 0.5 mg tablet 0.5 mg PO TID hydroxyzine HCl 25 mg tablet 10 mg PO DAILY PRN (Reason: anxiety) fluticasone propionate [Flonase Allergy Relief] 50 mcg/actuation spray,suspension 2 spray intranasal DAILY PRN (Reason: Allergic Symptoms) Rx Instructions: administer into each nostril apixaban 5 mg tablet 5 mg PO BID valsartan 160 mg tablet 160 mg PO QPM sertraline 100 mg tablet 100 mg PO DAILY amlodipine 10 mg tablet 10 mg PO DAILY Referrals: Name,MD Nitin [Primary Care Provider, Internal Medicine] Print Language: [place]ican
[2025-09-19 05:13] VITALS: BP 148/79; PULSE 84; RESP 18; TEMP 36.2; O2SAT 97
== END 2025-09-19 05:14 | disposition home or self-care (01) ==
PROVIDERS: Emergency Provider Emergency Medicine; PCP Internal Medicine Geriatric Medicine
DX: S00.03XA Contusion of scalp, initial encounter (principal); R42 Dizziness and giddiness; F41.9 Anxiety disorder, unspecified; F41.0 Panic disorder [episodic paroxysmal anxiety]; R00.0 Tachycardia, unspecified; R51.9 Headache, unspecified; M54.2 Cervicalgia; X58.XXXA Exposure to other specified factors, initial encounter; Y93.9 Activity, unspecified; Y92.9 Unspecified place or not applicable; Y99.8 Other external cause status; Z79.899 Other long term (current) drug therapy
CPT/HCPCS: 36415; 70450; 72125; 73564; 80053; 81001; 84484; 85025; 85610; 87086; 93005; 99283; 99285

== ENCOUNTER → 2025-09-19 00:12 | Outpatient (BNV) | payer OTHER, SELFPAY | PROVIDERS: Emergency Provider Emergency Medicine; PCP Internal Medicine Geriatric Medicine; Visit Provider Internal Medicine Cardiovascular Disease | DX: R00.0 Tachycardia, unspecified (principal) | CPT/HCPCS: 93010 ==

== ENCOUNTER → 2025-09-19 01:55 | Outpatient (BNV) | payer OTHER, SELFPAY | PROVIDERS: Emergency Provider Emergency Medicine; Visit Provider Radiology Diagnostic Radiology | DX: S09.90XA Unspecified injury of head, initial encounter (principal); W19.XXXA Unspecified fall, initial encounter | CPT/HCPCS: 70450; 72125 ==

== ENCOUNTER 2025-09-22 05:53 | Emergency (ER) | payer OTHER, SELFPAY ==
[2025-09-22 06:04] VITALS: BP 157/76; PULSE 94; RESP 18; TEMP 36.8; O2SAT 95
[2025-09-22 06:08] VITALS: BP 157/76; PULSE 94; RESP 18; TEMP 36.8; O2SAT 98; BMI 33.8
[2025-09-22 06:12] VITALS: BP 147/83; PULSE 98; O2SAT 96
--- OUTSIDE RECORDS SUMMARY | 2025-09-22 06:21 | XMS_ITS | Encounter Summary ---
Author Organization [employer] Address [address] [facility] [address] [place] [address] Care Team Providers Care Rim Technician Name Role Phone Name, Nitin PIKE Primary Care Provider [phone] Reason for Visit * Reason Comments Med Refill Encounter Details Date Type Department Care Team (Late st Contact Info) Description 08/17/2025 Refill [facility] [address] [place], [place] [phone] Miryam Riely NP [address] [place] [address] Hypertension, unspecified type Social History Tobacco Use [...] Office Visit [facility] [address] [place] [phone] NameNitin MD [address] [place] [address] documented as of this encounter Visit Diagnoses Diagnosis Hypertension, unspecified type documented in this encounter Additional Health Concerns Assessment Noted Time PHQ-9 Depression Total Score: 3 04/29/20 25 9:41 AM EDT documented as of this encounter Care Teams Rim Technician Relationship Specialty Start Date End Date Name, MD Nitin [address] [place] [phone] PCP - General Family Medicine 08/26/17 [facility] 09/01/24 documented as of this encounter
--- OUTSIDE RECORDS SUMMARY | 2025-09-22 06:21 | XMS_ITS | Encounter Summary ---
Author Organization [employer] Address [address] [facility] [address] [place] [address] Care Team Providers Care Blowing Weasand Name Role Phone Name, Nitin PIKE Primary Care Provider [phone] Reason for Visit * Reason Comments Med Refill Encounter Details Date Type Department Care Team (Late st Contact Info) Description 07/25/2025 Refill [facility] [address] [place], [place] [phone] Name, MD Nitin [address] [place] [address] Social History Tobacco Use Types Packs/Day Years [...] EST Office Visit [facility] [address] [place] [phone] NameNitin MD [address] [place] [address] documented as of this encounter Visit Diagnoses Not on filedocumented in this encounter Additional Health Concerns Assessment Noted Time PHQ-9 Depression Total Score: 3 04/29/20 25 9:41 AM EDT documented as of this encounter Care Teams Blowing Weasand Relationship Specialty Start Date End Date NameNitin MD [address] [place] [phone] PCP - General Family Medicine 08/26/17 [facility] 09/01/24 documented as of this encounter
--- OUTSIDE RECORDS SUMMARY | 2025-09-22 06:21 | XMS_ITS | Encounter Summary ---
Author Organization [employer] Address [address] [facility] [address] [place] [address] Care Team Providers Care Structural Ironworker Name Role Phone Name, Nitin PIKE Primary Care Provider [phone] Encounter Details Date Type Department Care Team [...] EST Office Visit [facility] [address] [place] [address] Name, MD Nitin [address] [place] [address] documented as of this encounter Procedures Procedure Name Priority Date/Time Associated Diagnosis Comments GLUCOSE, WHOLE BLOOD Routine 09/17/2025 7:24 AM EST documented in this encounter Results * Glucose, Whole Blood (09/17/2025 7:24 AM EST) Glucose, Whole Blood 98 60 - 115 mg/dL [facility] Comment:METER #: [id number] 09/17/2025 7:24 AM EST 09/17/2025 7:28 AM EST us Generic External Data Provider LAB BLOOD ORDERAB LES Final Result [facility] [address] [place] [phone] [phone] documented in this encounter Visit Diagnoses Not on filedocumented in this encounter Additional Health Concerns Assessment Noted Time PHQ-9 Depression Total Score: 3 04/29/20 25 9:41 AM EDT documented as of this encounter Care Teams Structural Ironworker Relationship Specialty Start Date End Date Name, MD Nitin [address] [place] [address] PCP - General Family Medicine 08/26/17 [facility] 09/01/24 documented as of this encounter
--- OUTSIDE RECORDS SUMMARY | 2025-09-22 06:21 | XMS_ITS | Encounter Summary ---
Author Organization [employer] Address [address] [facility] [address] [place] [address] Care Team Providers Care Cnc Machine Operator Name Role Phone Name, Nitin PIKE Primary Care Provider [phone] Reason for Visit * Reason Comments Med Refill Encounter Details Date Type Department Care Team ([facility] st Contact Info) Description 04/01/2024 Refill [facility] [address] [place], [place] [phone] Name, MD iNtin [address] [place] [address] Rash Social History Tobacco Use Types Packs/Day [...] EST Office Visit [facility] [address] [place] [phone] NameNitin MD [address] [place] [address] documented as of this encounter Visit Diagnoses Diagnosis Rash Rash and other nonspecific skin eruption documented in this encounter Additional Health Concerns Assessment Noted Time PHQ-9 Depression Total Score: 6 02/13/20 24 9:14 AM EDT documented as of this encounter Care Teams Cnc Machine Operator Relationship Specialty Start Date End Date NameNitin MD [address] [place] [phone] PCP - General Family Medicine 08/26/17 [facility] 09/01/24 documented as of this encounter
--- OUTSIDE RECORDS SUMMARY | 2025-09-22 06:21 | XMS_ITS | Encounter Summary ---
Author Organization [employer] Address [address] [facility] [address] [place] [address] Care Team Providers Care Surfboard Designer Name Role Phone Name, Nitin PIKE Primary Care Provider [phone] Encounter Details Date Type Department Care Team ([facility] Contact Info) Description 08/08/2023 Telephone [facility] [address] [place] [address] [phone] Name, MD Nitin [address] [place] [address] [phone] Social History Tobacco Use Types Packs/Day Years [...] EST Office Visit [facility] [address] [place] [address] [phone] Name, MD Nitin [address] [place] [address] [phone] documented as of this encounter Visit Diagnoses Not on filedocumented in this encounter Additional Health Concerns Assessment Noted Time PHQ-9 Depression Total Score: 12 023 9:37 AM EDT documented as of this encounter Care Teams Surfboard Designer Relationship Specialty Start Date End Date Name, MD Nitin [address] [place] [address] PCP - General Family Medicine 08/26/17 [facility] 09/01/24 documented as of this encounter
--- OUTSIDE RECORDS SUMMARY | 2025-09-22 06:21 | XMS_ITS | Encounter Summary ---
Author Organization [employer] Address [address] [facility] 7t [place] [address] Care Team Providers Care Director Of Research Name Role Phone Name, Nitin PIKE Primary Care Provider Encounter Details Date Type Department Care Team (Late st Contact Info) Description 09/18/2025 Orders Only [facility] External Provider, [facility] Social History Tobacco Use Types [...] Visit [facility] MEDICINE [address] [place] [address] Name, MD Nitin [address] [place] [address] documented as of this encounter Procedures Procedure Name Priority Date/Time Associated Diagnosis Comments CT HEAD WO CONTRAST Routine 09/19/2025 3 :[address] CERVICAL SPINE WO CONTRAST Routine 09/19/2025 3:42 AM EST XR KNEE 4+ VIEWS LEFT Routine 09/18/2025 3:36 PM EST documented in this encounter Results * CT Head w/o Contrast (09/19/2025 3:43 AM EST) Anatomical Region Laterality Modality Head, Neck Computed Tomogra phy 09/19/2025 3:43 AM EST Narrative 09/19/2025 3:45 AM EST [facility] [address] [place] [address] Scan Report Signed Patient: Noreen Wing MR#: [id number] : 1945 Acct:[id number] Age/Sex: 79 / F ADM Date: 09/18/25 Loc: HO.ED Attending Dr: Ordering Physician: Marium Ny DO Date of Service: 09/19/25 Procedure(s): CT head/brain wo IV con Accession Number(s): [id number] cc: Marium Ny DO; [facility] Report Number: [id number]: Total DLP = 747.02 mGy-cm Reason for Exam: head trauma CLINICAL HISTORY: head trauma CT head without contrast Comparison: CT/REG/SR - CT HEAD/BRAIN WO IV CON - 09/03/25 13:35 EDT Findings: There is no acute intracranial hemorrhage. Ventricles are within normal limits in size. No mass effect or midline shift is present. The lemons-white matter differentiation appears normal. There is partial opacification of right mastoid air cells unchanged from the prior CT. There is small amount of mucus within the left ethmoid air cells also unchanged. Orbits are unremarkable. No fractures are identified. IMPRESSION: No acute intracranial abnormality. This document has been electronically signed by: Jono Fine MD on 09/19/2025 03:43:42 Dictated By: Jono Fine MD Signed By: <Electronically signed by Jono Fine MD in OV> 09/19/25343 DD/ 2 TD/TT: 09/19/25342 Internal Revenue Agent: Procedure Note Donotuseinterpreter, Image - 09/19/[address] [place] [address] [address] Scan Report Signed Patient: Noreen WingMR#: [id number] : 1945cct:[id number] Age/Sex: 79 / FADM Date: 09/18/25 Loc: HO.ED Attending Dr: Ordering Physician: Marium Ny DO Date of Service: 09/19/25 Procedure(s): CT head/brain wo IV con Accession Number(s): [id number] cc: Marium Ny DO; [facility] Report Number: [id number]: Total DLP = 747.02 mGy-cm Reason for Exam: head trauma CLINICAL HISTORY: head trauma CT head without contrast Comparison: CT/REG/SR - CT HEAD/BRAIN WO IV CON - 09/03/25 13:35 EDT Findings: There is no acute intracranial hemorrhage. Ventricles are within normal limits in size. No mass effect or midline shift is present. The lemons-white matter differentiation appears normal. There is partial opacification of right mastoid air cells unchanged from the prior CT. There is small amount of mucus within the left ethmoid air cells also unchanged. Orbits are unremarkable. No fractures areidentified. IMPRESSION: No acute intracranial abnormality. This document has been electronically signed by: Jono Fine MD on 09/19/2025 03:43:42 Dictated By: Jono Fine MD Signed By: <Electronically signed by Jono Fine MD in OV> 09/19/25343 DD/ 2 TD/TT: 09/19/25342 Internal Revenue Agent: [facility] External Provider IMG CT PROCEDURES Edited Result - Final * CT Cervical Spine w/o Contrast (09/19/2025 3:42 AM EST) Anatomical Region Laterality Modality Spine, C-spine Computed Tomogra phy 09/19/2025 3:42 AM EST Narrative 09/19/2025 3:43 AM EST [place] [address] CT Scan Report Signed Patient: Noreen Wing MR#: [id number] : 1945 Acct:[id number] Age/Sex: 79 / F ADM Date: 09/18/25 Loc: HO.ED Attending Dr: Ordering Physician: Marium Ny DO Date of Service: 09/19/25 Procedure(s): CT cervical spine wo IV con Accession Number(s): [id number] cc: Marium Ny DO; [facility] Report Number: [id number]: Total DLP = 428.77 mGy-cm Reason for Exam: fall, head trauma CLINICAL HISTORY: fall, head trauma CT cervical spine without contrast Comparison: CT/SR - CT CERVICAL SPINE WO IV CON - 09/03/25 13:35 EDT Findings: The alignment of the cervical spine is normal. There is no fracture. There is rvch-fi-cwklgecp C5-6 degenerative disc disease. There are posterior osteophytes at C5-6 probably causing zufd-cw-jilajjyg central canal stenosis. 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 There is a calcified granuloma in the right lung apex. IMPRESSION: No evidence of cervical spine injury. This document has been electronically signed by: Jono Fine MD on 09/19/2025 03:42:06 Dictated By: Jono Fine MD Signed By: <Electronically signed by Jono Fine MD in OV> 09/19/25341 DD/ 1 TD/TT: 09/19/25341 Internal Revenue Agent: Procedure Note Donotuseinterpreter, Image - 09/19/[address] [place] [address] [address] Scan Report Signed Patient: Noreen WingMR#: [id number] : 1945cct:[id number] Age/Sex: 79 / FADM Date: 09/18/25 Loc: HO.ED Attending Dr: Ordering Physician: Marium Ny DO Date of Service: 09/19/25 Procedure(s): CT cervical spine wo IV con Accession Number(s): [id number] cc: Marium Ny DO; [facility] Report Number: [id number]: Total DLP = 428.77 mGy-cm Reason for Exam: fall, head trauma CLINICAL HISTORY: fall, head trauma CT cervical spine without contrast Comparison: CT/SR - CT CERVICAL SPINE WO IV CON - 09/03/25 13:35 EDT Findings: The alignment of the cervical spine is normal. There is no fracture. There is cnhu-lk-hhccdjab C5-6 degenerative disc disease. There are posterior osteophytes at C5-6 probably causing gqxt-gl-ivqtgkhb central canal stenosis. 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 There is a calcified granuloma in the right lung apex. IMPRESSION: No evidence of cervical spine injury. This document has been electronically signed by: Jono Fine MD on 09/19/2025 03:42:06 Dictated By: Jono Fine MD Signed By: <Electronically signed by Jono Fine MD in OV> 09/19/25341 DD/ 1 TD/TT: 09/19/25341 Internal Revenue Agent: [facility] External Provider IMG CT PROCEDURES Edited Result - Final * XR Knee 4+ Views Left (09/18/2025 3:36 PM EST) Anatomical Region Laterality Modality Lower Extremities, Knee Left Radiogra phic Imaging 09/18/2025 3:36 PM EST Narrative 09/18/2025 3:39 PM EST [address] [address] XRay Report Signed Patient: Noreen Wing MR#: [id number] : 1945 Acct:[id number] Age/Sex: 79 / F ADM Date: 09/18/25 Loc: HO.ED Attending Dr: Ordering Physician: Cuco Amador Date of Service: 09/18/25 Procedure(s): XR knee LT 4V Accession Number(s): [id number] cc: Cuco Amador; Name,Nitin PIKE Reason for [...] in OV> 09/18/25 1538 DD/ 1536 TD/TT: 09/18/251535 Internal Revenue Agent: Procedure Note Donotuseinterpreter, Image - 09/18/[address] [address] XRay Report Signed Patient: Noreen WingMR#: [id number] : 3Acct:[id number] Age/Sex: 79 / FADM Date: 09/18/25 Loc: HO.ED Attending Dr: Ordering Physician: Cuco Amador Date of Service: 09/18/25 Procedure(s): XR knee LT 4V Accession Number(s): [id number] cc: Cuco Amador; Name,Nitin PIKE Reason for [...] 09/18/25 1538 DD/ 1536 TD/TT: 09/18/25 1536 Internal Revenue Agent: [facility] External Provider IMG XR PROCEDURES Edited Result - Final documented in this encounter Visit Diagnoses Not on filedocumented in this encounter Additional Health Concerns Assessment Noted Time PHQ-9 Depression Total Score: 3 04/29/20 25 9:41 AM EDT documented as of this encounter Care Teams Director Of Research Relationship Specialty Start Date End Date Name, MD Nitin [address] [place] [address] PCP - General Family Medicine 08/26/17 [facility] 09/01/24 documented as of this encounter
--- OUTSIDE RECORDS SUMMARY | 2025-09-22 06:21 | XMS_ITS | Encounter Summary ---
Author Organization [employer] Address 75 [facility] 7[address] [place] [address] Care Team Providers Care Demurrage Agent Name Role Phone Name, Nitin PIKE Primary Care Provider [phone] Reason for Visit * Reason Onset Date Comments ER Follow-up 05/31/2024 Encounter Details Date Type Department Care Team ([facility] Contact Info) Description 05/31/2024 Telephone [facility] MEDICINE [address], [place] [phone] Name, MD Nitin [address] [place] [address] ER Follow-up Social History Tobacco Use Types [...] PM EDT T/C to Pat ([facility]) [phone] for below message, no answer. LVM to call back on [phone]. * Telephone Encounter - Melany Santos RN - 05/31/2024 1:32 PM EDT DAVID T/C to pt. Through [employer] id - [id number] for below message, pt. Had recent fall and ED visit at [facility]. RN will request GRACE piedra from [facility]. Pt. Is doing good, states I am tired andsleeping. Pt. Dose not has any question or concern right now. Pt. Already has HDF apt. Schedule on 06/10/2024. Pt. Advised to give call to [facility] if any questions or concerns. Pt. Verbally agreed and understood. Please review and advise if needed. * Telephone Encounter - Adithya Solorzano - 05/31/2024 12:50 PM EDT Patient calling to report ED visit on : Date: 05/26 Hospital: [facility] Seen for: Fall, Back Pain Pat stated pt is requesting a sooner apt with pcp due to recent ER visit. PT is also requesting order for PT services for to go along with [facility]. documented in this encounter Plan of Treatment Upcoming Encounters Date Type Department Care Team (Late st Contact Info) Description 11/07/2025 10:00 AM EST Office Visit [facility] MEDICINE [address] [place] [address] Name, MD Nitin [address] [place] [address] documented as of this encounter Visit Diagnoses Not on filedocumented in this encounter Additional Health Concerns Assessment Noted Time PHQ-9 Depression Total Score: 6 02/13/20 24 9:14 AM EDT documented as of this encounter Care Teams Demurrage Agent Relationship Specialty Start Date End Date Name, MD Nitin [address] [place] [address] PCP - General Family Medicine 08/26/17 [facility] 09/01/24 documented as of this encounter
--- OUTSIDE RECORDS SUMMARY | 2025-09-22 06:21 | XMS_ITS | Encounter Summary ---
Author Organization [employer] Address [address] [facility] [address] [place] [address] Care Team Providers Care Utility System Repairer Name Role Phone Name, Nitin PIKE Primary Care Provider [phone] Reason for Visit * Reason Comments Med Refill Encounter Details Date Type Department Care Team (Late st Contact Info) Description 08/16/2024 Refill [facility] [address] [place], [place] [phone] Name, MD Nitin [address] [place] [address] Heartburn Social History Tobacco Use Types Packs/Day [...] EST Office Visit [facility] MEDICINE [address] [place] [address] NameNitin MD [address] [place] [address] documented as of this encounter Visit Diagnoses Diagnosis Heartburn documented in this encounter Additional Health Concerns Assessment Noted Time PHQ-9 Depression Total Score: 6 02/13/20 24 9:14 AM EDT documented as of this encounter Care Teams Utility System Repairer Relationship Specialty Start Date End Date NameNitin MD [address] [place] [address] PCP - General Family Medicine 08/26/17 [facility] 09/01/24 documented as of this encounter
--- OUTSIDE RECORDS SUMMARY | 2025-09-22 06:21 | XMS_ITS | Encounter Summary ---
Author Organization [employer] Address [address] [facility] [address] [place] [address] Care Team Providers Care Senior Advisory Name Role Phone Name, Nitin PIKE Primary Care Provider [phone] Reason for Visit * Reason Comments Med Refill Encounter Details Date Type Department Care Team (Late st Contact Info) Description 04/20/2025 Refill [facility] [address] [place] [address] Zechariah Cheung MD [address] [place] [address] Allergic rhinitis, unspecified seasonality, unspecified trigger Social [...] [facility] MEDICINE [address] [place] [address] NameNitin MD [address] [place] [address] documented as of this encounter Visit Diagnoses Diagnosis Allergic rhinitis, unspecified seasonality, unspecified trigger documented in this encounter Additional Health Concerns Assessment Noted Time PHQ-9 Depression Total Score: 6 02/13/20 9:14 AM EDT documented as of this encounter Care Teams Senior Advisory Relationship Specialty Start Date End Date Nitin Echevarria MD [address] [place] [address] PCP - General Family Medicine 08/26/17 [facility] 09/01/24 documented as of this encounter
--- OUTSIDE RECORDS SUMMARY | 2025-09-22 06:21 | XMS_ITS | Encounter Summary ---
Author Organization [employer] Address 75 [facility] 7[address] [place] [address] Care Team Providers Care College Administrator Name Role Phone Name, Nitin PIKE Primary Care Provider [phone] Reason for Visit * Reason Onset Date Comments Results 08/29/2023 Encounter Details Date Type Department Care Team ([facility] st Contact Info) Description 08/29/2023 Telephone [facility] MEDICINE [address] [place], [place] [phone] Name, MD Nitin [address] [place] [address] Results Social History Tobacco Use Types Packs/Day [...] 09/01/2023 11:51 AM EDT Pt evaluated in [facility] today and is scheduled with pcp 09/03/23. * Telephone Encounter - Janette Huitron - 08/29/2023 4:06 PM EDT Tc from pt requesting a call in regards to urine results. Please contact pt at [phone] (Maltese) documented in this encounter Plan of Treatment Upcoming Encounters Date Type Department Care Team (Late st Contact Info) Description 11/07/2025 10:00 AM EST Office Visit [facility] MEDICINE [address] [place] [address] Name, MD Nitin [address] [place] [address] documented as of this encounter Visit Diagnoses Not on filedocumented in this encounter Additional Health Concerns Assessment Noted Time PHQ-9 Depression Total Score: 12 023 9:37 AM EDT documented as of this encounter Care Teams College Administrator Relationship Specialty Start Date End Date Name, MD Nitin [address] [place] [address] PCP - General Family Medicine 08/26/17 [facility] 09/01/24 documented as of this encounter
--- OUTSIDE RECORDS SUMMARY | 2025-09-22 06:21 | XMS_ITS | Encounter Summary ---
Author Organization [employer] Address 75 [facility] [address] [place] [address] Care Team Providers Care Processing Clerk Name Role Phone Name, Nitin PIKE Primary Care Provider [phone] Reason for Visit * Reason Onset Date Comments Med Refill 11/08/2024 Encounter Details Date Type Department Care Team ([facility] st Contact Info) Description 11/08/2024 Telephone [facility] MEDICINE [address] [place], [place] [phone] Name, MD Nitin [address] [place] [address] Med Refill Social History Tobacco Use Types [...] 5 MG tablet To be sent to: [facility] [place], [place] - [address] [facility] documented in this encounter Plan of Treatment Upcoming Encounters Date Type Department Care Team ([facility] st Contact Info) Description 11/07/2025 10:00 AM EST Office Visit [facility] MEDICINE [address] [place] [address] Name, MD Nitin [address] [place] [address] documented as of this encounter Visit Diagnoses Not on filedocumented in this encounter Additional Health Concerns Assessment Noted Time PHQ-9 Depression Total Score: 6 02/13/20 24 9:14 AM EDT documented as of this encounter Care Teams Processing Clerk Relationship Specialty Start Date End Date Name, MD Nitin [address] [place] [address] PCP - General Family Medicine 08/26/17 [facility] 09/01/24 documented as of this encounter
--- OUTSIDE RECORDS SUMMARY | 2025-09-22 06:21 | XMS_ITS | Clinical Summary ---
Author Organization [employer] Address [address] [place] [address] [address] [place] [address] Care Team Providers Care Shade Cloth Finisher Name Role Phone Name, Nitin PIKE Primary Care Provider [phone] Allergies Active Allergy Reactions Criticality Noted Date [...] MOUTH EVERY 8 HOURS NEEDED FOR PAIN (SAUDI ARABIAN LABEL) 90 tablet 025 Active omeprazole (PriLOSEC) [address] capsuleIndication s:Heartburn TAKE 1 CAPSULE BY MOUTH EVERY MORNING 1 HOUR BEFORE BREAKFAST 90 capsule 1 025 Active rosuvastatin (Crestor) 20 MG tablet Take 1 tablet (20 mg) by mouth at bedtime. 90 tablet 3 Active Multiple Vitamin (Multivitamin) tablet Take 1 tablet by mouth in the morning. 90 tablet 3 025 Active cholecalciferol (Vitamin D-3) 25 MCG tabletIndications :Vitamin D deficiency Take 1 tablet (25 mcg) by mouth 2 times daily. 60 tablet 025 Active docusate sodium (Colace) 100 MG capsule TAKE 2 CAPSULES BY MOUTH TWICE DAILY IN THE MORNING AND EVENING 120 capsule 3 Active naproxen (Naprosyn) 500 MG tabletIndications :Acute pain of left knee Take 1 tablet with food twice daily as needed for pain 14 tablet 025 Active Ferrous Sulfate (iron) 325 (65 Fe) MG tablet TAKE 1 TABLET BY MOUTH EVERY MORNING WITH FOOD 30 tablet 025 Active Ferrous Sulfate (iron) 325 (65 Fe) MG tablet TAKE 1 TABLET BY MOUTH EVERY MORNING WITH FOOD 30 tablet 025 2024 Discontinued cefuroxime (Ceftin) 500 MG tabletIndications :Acute cystitis without hematuria Take 1 tablet (500 mg) by mouth 2 times daily for 7 days. 14 tablet 025 2024 Active Problems Problem Noted Date Diagnosed Date Acute cystitis without hematuria 09/09/2025 Viral pharyngitis 11/12/2024 Assessment & Plan (11/12/2024 9:40 AM EST): Symptomatic measures Rest Major neurocognitive disorder ([facility]) 11/02/20 Acute otitis media 04/22/2024 Diarrhea [...] precautions advised Stage 3a chronic kidney disease ([facility]) 2022 Headache 01/02/2023 Overview (12/18/2023): Last Assessment [...] because it calms her down. I called [facility] pharmacy to attempt a med [...] left I received a call from the [facility] pharmacy instructing me that she [...] Encounters Date Type Department Care Team Description 09/21/2025 Telephone [facility] [place] [address] Nitin Echevarria MD Request For Order(s); Referral 09/19/2025 Refill [facility] MED & PEDS [address] [place] [address] Nitin Echevarria MD 09/19/2025 Orders Only GENERIC EXTERNAL DATA DEPARTMENT Provider, Generic External Data 09/18/2025 Orders Only [facility] External Provider, [facility] 09/17/2025 Orders Only GENERIC EXTERNAL DATA DEPARTMENT Provider, Generic External Data 09/09/[address] [address] Thea Warren FNP Results 09/06/2025 1:30 PM EDT Office Visit [address] [address] Thea Warren FNP Acute pain of left knee (Primary Dx); Urinary frequency; Acute cystitis without hematuria 09/06/2025 Orders Only [facility] MEDICINE [address] [place] [address] Thea Warren FNP 09/06/2025 Travel 09/05/[address] [address] Nitin Echevarria MD Chart Prep 09/03/2025 Orders Only GENERIC EXTERNAL DATA DEPARTMENT Provider, Generic External Data 08/30/2025 Patient Outreach [facility] [address] [place] [address] Nitin Echevarria MD Pre-visit Planning ([facility] unable to reach) 08/24/[address] [address] Nitin Echevarria MD Referral 08/24/[address] [address] Nitin Echevarria MD Verbal Order 08/22/2025 Orders Only [facility] External Provider, [facility] 08/18/2025 Orders Only GENERIC EXTERNAL DATA DEPARTMENT Provider, Generic External Data 08/17/2025 Refill [facility] [address] [place] [address] Nitin Echevarria MD 08/17/2025 Refill [facility] MEDICINE [address] [place] [address] Miryam Riley, KIKO Hypertension, unspecified type 08/15/2025 Refill [facility] MEDICINE [address] [place] [address] Nitin Echevarria MD Heartburn 08/14/2025 Refill [facility] PEDS [address] [place] [address] Nitin Echevarria MD Heartburn; Vitamin D deficiency 08/09/2025 11:15 AM EDT Office Visit [facility] MEDICINE [address] [place] [address] Nitin Echevarria MD Generalized anxiety disorder with panic attacks (Primary Dx); Encounter for immunization; Chronic bilateral low back pain without sciatica 08/09/2025 Travel 08/01/2025 Refill [facility] MEDICINE [address] [place] [address] Nitin Echevarria MD Vitamin D deficiency 07/28/2025 Orders Only GENERIC EXTERNAL DATA DEPARTMENT Provider, Generic External Data 07/27/2025 Orders Only [facility] External Provider, [facility] 07/26/2025 Orders Only GENERIC EXTERNAL DATA DEPARTMENT Provider, Generic External Data 07/26/2025 Telephone [facility] MEDICINE [address] [place] [address] Nitin Echevarria MD ER Follow-up 07/25/2025 Refill [facility] MED [facility] PEDS [address] [place] [address] Nitin Echevarria MD 07/25/2025 Refill [facility] MEDICINE [address] [place] [address] Nitin Echevarria MD 07/18/2025 Refill [facility] PEDS [address] [place] [address] Miryam Riley, KIKO 07/18/2025 Orders Only GENERIC EXTERNAL DATA DEPARTMENT Provider, Generic External Data 07/17/2025 Refill [facility] MEDICINE [address] [place], [place] [phone] Nitin Echevarria MD Hypertension, unspecified type 07/07/2025 8:40 AM EDT Office Visit [facility] WALK-IN [address] [address] Zach Javier MD Acute conjunctivitis of left eye, unspecified acute conjunctivitis type (Primary Dx) 07/07/2025 Travel 07/01/2025 9:20 AM EDT Office Visit [facility] WALK-IN [place] [address] [place] [address] Zach Javier MD Pedal edema (Primary Dx) 07/01/2025 Travel 06/28/2025 Refill [facility] MED [facility] PEDS [address] [place] [address] Nitin Echevarria MD 06/27/2025 Refill [facility] MED & PEDS [address] [place] [address] Name, MD Nitin Vitamin D deficiency from Last 3 Months [...] [facility] MEDICINE [address] [place] [address] Name, MD Nitin [address] [place] [address] Health Maintenance Due Date Last Done Comments [...] WO CONTRAST Routine 09/19/2025 3:42 AM EST URINALYSIS, COMPLETE, WITH REFLEX TO CULTURE Routine 09/19/2025 3:15 AM EST CULTURE, URINE, ROUTINE Routine 09/19/2025 3:15 AM EST HIGH SENSITIVITY TROPONIN I Routine 09/19/2025 12:26 AM EST COMPREHENSIVE METABOLIC PANEL Routine 09/19/2025 12:26 AM EST PROTHROMBIN TIME-INR Routine 09/19/2025 12:26 AM EST CBC WITH AUTO DIFFERENTIAL Routine 09/19/2025 12:26 AM EST XR KNEE 4+ VIEWS LEFT [...] Recently Relevant to Health Maintenance Results * CT Head w/o Contrast (09/19/2025 3:43 AM EST) Only the most recent of2 resultswithin the time period is included. Anatomical Region Laterality Modality Head, Neck Computed Tomogra phy 09/19/2025 3:43 AM EST Narrative 09/19/2025 3:45 AM EST [place] [address] [address] Scan Report Signed Patient: Noreen Wing MR#: [id number] : 1945 Acct:[id number] Age/Sex: 79 / F ADM Date: 09/18/25 Loc: HO.ED Attending Dr: Ordering Physician: Marium Ny DO Date of Service: 09/19/25 Procedure(s): CT head/brain wo IV con Accession Number(s): [id number] cc: Marium Ny DO; [facility] Report Number: [id number]: Total DLP = 747.02 mGy-cm Reason for [...] in OV> 09/19/25343 DD/ 2 TD/TT: 09/19/25342 Commuter Pilot: Procedure Note Donotuseinterpreter, Image - 09/19/[address] [place] [address] [address] Scan Report Signed Patient: Noreen WingMR#: [id number] : 1945cct:[id number] Age/Sex: 79 / FADM Date: 09/18/25 Loc: .ED Attending Dr: Ordering Physician: Marium Ny DO Date of Service: 09/19/25 Procedure(s): CT head/brain wo IV con Accession Number(s): [id number] cc: Marium Ny DO; [facility] Report Number: [id number]: Total DLP = 747.02 mGy-cm Reason for [...] in OV> 09/19/25343 DD/ 2 TD/TT: 09/19/25342 Commuter Pilot: us [facility] External Provider IMG CT PROCEDURES Edited Result - Final * CT Cervical Spine w/o Contrast (09/19/2025 3:42 AM EST) Only the most recent of2 resultswithin the time period is included. Anatomical Region Laterality Modality Spine, C-spine Computed Tomogra phy 09/19/2025 3:42 AM EST Narrative 09/19/2025 3:43 AM EST [address] [address] [address] Scan Report Signed Patient: Noreen Wing MR#: [id number] : 1945 Acct:[id number] Age/Sex: 79 / F ADM Date: 09/18/25 Loc: HO.ED Attending Dr: Ordering Physician: Marium Ny DO Date of Service: 09/19/25 Procedure(s): CT cervical spine wo IV con Accession Number(s): [id number] cc: Marium Ny DO; [facility] Report Number: [id number]: Total DLP = 428.77 mGy-cm Reason for Exam: fall, head trauma CLINICAL HISTORY: fall, head trauma CT cervical spine without contrast Comparison: CT/SR - CT CERVICAL SPINE WO IV CON - 09/03/25 13:35 EDT Findings: The alignment of the cervical spine is normal. There is no fracture. There is ztue-cv-bbkhmcuz C5-6 degenerative disc disease. There are posterior osteophytes at C5-6 probably causing ergz-gd-jjbfmcth central canal stenosis. There is multilevel facet [...] in OV> 09/19/25341 DD/ 1 TD/TT: 09/19/25341 Commuter Pilot: Procedure Note Donotuseinterpreter, Image - 09/19/[address] [address] [address] Scan Report Signed Patient: Noreen WingMR#: [id number] : 1945cct:[id number] Age/Sex: 79 / FADM Date: 09/18/25 Loc: HO.ED Attending Dr: Ordering Physician: Marium Ny DO Date of Service: 09/19/25 Procedure(s): CT cervical spine wo IV con Accession Number(s): [id number] cc: Marium Ny DO; [facility] Report Number: [id number]: Total DLP = 428.77 mGy-cm Reason for Exam: fall, head trauma CLINICAL HISTORY: fall, head trauma CT cervical spine without contrast Comparison: CT/SR - CT CERVICAL SPINE WO IV CON - 09/03/25 13:35 EDT Findings: The alignment of the cervical spine is normal. There is no fracture. There is xkwy-mm-ghlrotzg C5-6 degenerative disc disease. There are posterior osteophytes at C5-6 probably causing kuiu-sz-ghsruswl central canal stenosis. There is multilevel facet [...] in OV> 09/19/25341 DD/ 1 TD/TT: 09/19/25341 Commuter Pilot: [facility] External Provider IMG CT PROCEDURES Edited Result - Final * (ABNORMAL) Urinalysis, Complete, with Reflex to Culture (09/19/2025 3:15 AM EST) Only the most recent of4 resultswithin the time period is included. Color Urine Yellow [facility] Appearance Urine Clear [facility] PH 5.5 5.0 - 9.0 [facility] Glucose Urine UA Negative Negative mg/dL [facility] Urine Blood Negative Negative [facility] Specific Mentor - Urine 1.020 1.005 - 1.025 [facility] Urine Protein Negative Neg-Trace mg/dL [facility] Urine Ketones Negative Negative mg/dL [facility] Nitrite Urine Negative Negative [facility] Leukocyte Esterase Urine Moderate (2+)(A) Negative [facility] RBC Urine 0-2 0 - 2 /HPF [facility] Urine WBC 21-50(A) 0 - 5 /HPF [facility] Urine Squamous Epithelial Cell 0-2 0 - 2 /HPF [facility] Urine Bacteria None Seen None Seen [facility] Hyaline Casts, Urine 0-2 0 - 2 /LPF [facility] 09/19/2025 3:15 AM EST 09/19/2025 3:24 AM EST Narrative [facility] - 09/19/2025 3:34 AM EST [id number], Clean Catch Generic External Data Provider LAB URINE ORDERAB LES Final Result Performing Organization Address [facility] de Phone Number [facility] [address] [place] [address] [phone] * Culture, Urine, Routine (09/19/2025 3:15 AM EST) Only the most recent of5 resultswithin the time period is included. Urine Urine specimen obtained by clean catch procedure / Unknown 09/19/2025 3:15 AM EST 09/19/2025 3:34 AM EST Comment:[facility] Narrative [facility] - 09/20/2025 11:42 AM EST Urine Culture Report Result Urine Culture 10,000 to 50,000 cfu/ml Urine Culture Mixed bacterial jann characteristic of Urine Culture urogenital contamination. Specimen Source: Urine clean catch Generic External Data Provider LAB MICROBIOLOGY - GENERAL ORDERABLES Final Result Performing Organization Address City/[facility] Co de Phone Number [facility] [address] [place] [address] [phone] * High Sensitivity Troponin I (09/19/2025 12:26 AM EST) Only the most recent of6 resultswithin the time period is included. Pathologist [facility] TROPONIN I HIGH SENSITIVITY <2.7 <3.5 - 17.0 ng/L [facility] Comment:The Mckeon high sens itivity Troponin-I results should beused in conjunction with other diagnostic information suchas ECG, clinical observations and information, and patientsymptoms to aid in the diagnosis of AL. 09/19/2025 12:2 6 AM EST 09/19/2025 12:28 AM EST us Generic External Data Provider LAB BLOOD ORDERAB LES Final Result [facility] [address] [place] [phone] * (ABNORMAL) CBC auto differential (09/19/2025 12:26 AM EST) Only the most recent of5 resultswithin the time period is included. [facility] White Blood Count 5.7 4.8 - 10.8 X10*3/uL [facility] Red Blood Count 3.90(L) 4.20 - 5.50 X10*6/uL [facility] Hemoglobin 10.9(L) 12.0 - 16.0 g/dl [facility] Hematocrit 33.0(L) 37.0 - 47.0 % [facility] Mean Corpuscular Volume 84.6 80.0 - 98.0 fL [facility] Mean Corpuscular Hemoglobin 27.9 27.0 - 33.0 pg [facility] Mean Corpuscular HGB Conc 33.0 31.0 - 35.0 g/dl [facility] Red Cell Distribution Width 14.0 11.0 - 16.0 % [facility] Platelet Count 272 160 - 400 X10*3/uL [facility] Mean Platelet Volume 8.2(L) 9.4 - 12.3 fL [facility] Neutrophils Percent Auto 63.3 45 - 73 % [facility] Imm Gran Pct Auto 0.4 0.0 - 0.4 % [facility] Lymphocytes Percent Auto 23.4 20 - 40 % [facility] Monocytes Percent Auto 10.4 2 - 11 % [facility] Eosinophils Percent Auto 1.6 0 - 4 % [facility] Basophils Percent Auto 0.9 0 - 2 % [facility] NRBC Pct Auto 0.0 0.0 - 0.2 /100WBC [facility] Neutrophils Absolute Auto 3.6 2.0 - 8.3 x10*3/uL [facility] Imm Gran Abs Auto 0.02 0.00 - 0.03 X10*3/uL [facility] Lymphocytes Absolute Auto 1.3 1.2 - 4.9 X10*3/uL [facility] Monocytes Absolute Auto 0.6 0.1 - 1.2 X10*3/uL [facility] Eosinophils Absolute Auto 0.1 0.0 - 0.4 X10*3/uL [facility] Basophils Absolute Auto 0.1 0.0 - 0.2 X10*3/uL [facility] NRBC Abs Auto 0.000 0.0 - 0.012 X10*3/uL [facility] 09/19/2025 12:2 6 AM EST 09/19/2025 12:28 AM EST us Generic External Data Provider LAB BLOOD ORDERAB LES Final Result [facility] [address] [place] [phone] * Prothrombin Time-INR (09/19/2025 12:26 AM EST) Only the most recent of2 resultswithin the time period is included. Prothrombin Time 12.5 11.2 - 13.5 SEC [facility] INTERNATIONAL NORM RATIO 1.0 0.9 - 1.1 [facility] Comment:INTERNATIONAL NORMAL IZED RATIO (INR) REFERENCE RANGES Reference RangeFor patients not on anticoagulant therapy: 0.9 - 1.1INR ranges for oral anticoagulanttherapy:For prevention and treatment of venous thrombosis and pulmonary embolism: 2.0 - 3.0For acute myocardial infarction with aspirin therapy: 2.0 - 3.0For acute myocardial infarction without aspirin therapy: 3.0 - 4.0For patients with mechanical prosthetic heart valves: 2.5 - 3.5 09/19/2025 12:2 6 AM EST 09/19/2025 12:28 AM EST us Generic External Data Provider LAB BLOOD ORDERAB LES Final Result [facility] [address] [place] [address] [phone] * (ABNORMAL) Comprehensive Metabolic Panel (09/19/2025 12:26 AM EST) Only the most recent of4 resultswithin the time period is included. Sodium 136 135 - 145 mmol/L [facility] Potassium 4.1 3.3 - 5.1 mmol/L [facility] Chloride 101 96 - 108 mmol/L [facility] Carbon Dioxide 25 22 - 29 mmol/L [facility] Anion Gap 14 12 - 20 [facility] Urea Nitrogen (BUN) 33(H) 9 - 16 mg/dL [facility] Creatinine, Serum 0.99 0.5 - 1.4 mg/dL [facility] Creatinine Clr Calc Pharmacy 45.4 [facility] Comment:Provided height and weight: 157.48 cm,86.183 kg.eGFR (calculated from the MDRD study equation) and eCrCl(calculated from the Cockcroft-Gault equation) are based ondifferent parameters and may not yield comparable results.If eCrCl result is absurd, please check patient'sheight/weight. Estimated Glomerular Filt Rate 54 [facility] Comment:Chronic Kidney Disea se: Estimated GFR < 60 mL/min/1.16w8Jkdyuv Kidney Disease: Estimated GFR < 15 mL/min/1.73m2 Glucose 108 60 - 115 mg/dL [facility] Calcium 8.9 8.4 - 10.2 mg/dL [facility] Bilirubin, Total 0.3 0.0 - 1.0 mg/dL [facility] Aspartate Amino Transferase 26 5 - 31 U/L [facility] Alanine Aminotransferase 14 0 - 31 U/L [facility] Total Protein 7.6 6.5 - 8.0 g/dL [facility] Albumin Level 4.1 3.5 - 5.0 g/dL [facility] Alkaline Phosphatase 92 39 - 117 U/L [facility] 09/19/2025 12:2 6 AM EST 09/19/2025 12:28 AM EST us Generic External Data Provider LAB BLOOD ORDERAB LES Final Result Performing Organization Address City/State/[facility] Co de Phone Number [facility] [address] [place] [address] [phone] * XR Knee 4+ Views Left (09/18/2025 3:36 PM EST) Only the most recent of2 resultswithin the time period is included. Anatomical Region Laterality Modality Lower Extremities, Knee Left Radiogra phic Imaging 09/18/2025 3:36 PM EST Narrative 09/18/2025 3:39 PM EST [place] [address] XRay Report Signed Patient: Noreen Wing MR#: [id number] : 1945 Acct:[id number] Age/Sex: 79 / F ADM Date: 09/18/25 Loc: HO.ED Attending Dr: Ordering Physician: Cuco Amador Date of Service: 09/18/25 Procedure(s): XR knee LT 4V Accession Number(s): [id number] cc: Cuco Amador; Name,Nitin PIKE Reason for [...] in OV> 09/18/25 1538 DD/ 35 TD/TT: 09/18/251535 Commuter Pilot: Procedure Note Donotuseinterpreter, Image - 09/18/[address] [address] XRay Report Signed Patient: Noreen WingMR#: [id number] : 1945cct:[id number] Age/Sex: 79 / FADM Date: 09/18/25 Loc: .ED Attending Dr: Ordering Physician: Cuco Amador Date of Service: 09/18/25 Procedure(s): XR knee LT 4V Accession Number(s): [id number] cc: Cuco Amador; Name,Nitin PIKE Reason for [...] in OV> 09/18/25 1538 DD/ 35 TD/TT: 09/18/251535 Commuter Pilot: [facility] External Provider IMG XR PROCEDURES Edited Result - Final * Glucose, Whole Blood (09/17/2025 7:24 AM EST) Glucose, Whole Blood 98 60 - 115 mg/dL [facility] Comment:METER #: [id number] 09/17/2025 7:24 AM EST 09/17/2025 7:28 AM EST Generic External Data Provider LAB BLOOD ORDERAB LES Final Result Performing Organization Address [facility] Co de Phone Number [facility] [address] [place] [phone] * POCT Urinalysis (09/06/2025 1:32 PM EDT) Pathologist [facility] Color, UA Light Yellow Clarity, UA Clear [...] Random) 09/06/2025 1:32 PM EDT Thea Warren SHIPPING INSPECTOR POINT OF CARE TEST ENTER/EDIT ORDERABLES Final Result * Magnesium (09/03/2025 2:08 PM EDT) [facility] Magnesium 2.0 1.6 - 2.6 mg/dL [facility] 09/03/2025 2:08 PM EDT 09/03/2025 2:12 PM EDT Generic External Data Provider LAB BLOOD ORDERAB LES Final Result Performing Organization Address [facility]/ZIP Co de Phone Number [facility] [address] [place] [phone] * (ABNORMAL) Basic Metabolic Panel (08/18/2025 8:44 AM EDT) Only the most recent of2 resultswithin the time period is included. [facility] Sodium 137 135 - 145 mmol/L [facility] Potassium 4.6 3.3 - 5.1 mmol/L [facility] Chloride 101 96 - 108 mmol/L [facility] Carbon Dioxide 30(H) 22 - 29 mmol/L [facility] Anion Gap 11(L) 12 - 20 [facility] Urea Nitrogen (BUN) 19(H) 9 - 16 mg/dL [facility] Creatinine, Serum 0.94 0.5 - 1.4 mg/dL [facility] Estimated Glomerular Filt Rate 57 [facility] Comment:Chronic Kidney Disea se: Estimated GFR < 60 mL/min/1.20y6Rnysdr Kidney Disease: Estimated GFR < 15 mL/min/1.73m2 Glucose 94 60 - 115 mg/dL [facility] Calcium 9.3 8.4 - 10.2 mg/dL [facility] 08/18/2025 8:44 AM EDT 08/18/2025 8:44 AM EDT us Generic External Data Provider LAB BLOOD ORDERAB LES Final Result Performing Organization Address City/State/[facility] Co de Phone Number [facility] [address] [place] [phone] * CTA Chest PE Protocal (07/28/2025 8:35 PM EDT) Only the most recent of2 resultswithin the time period is included. Anatomical Region Laterality Modality Body, Chest Computed Tomogra phy 07/28/2025 8:35 PM EDT Narrative 07/28/2025 8:36 PM EDT [address] [address] [address] Scan Report Signed Patient: Noreen Wing MR#: [id number] : 1945 Acct:[id number] Age/Sex: 79 / F ADM Date: 07/28/25 Loc: .ED Attending Dr: Ordering Physician: Cuco Amador Date of Service: 07/28/25 Procedure(s): CT angio chest PE protocol Accession Number(s): [id number] cc: Cuco Amador; Name,Nitin PIKE Report Number: [id number]: Total DLP = 311.00 mGy-cm Reason for [...] in OV> 07/28/252034 DD/ 34 TD/TT: 07/28/252034 Commuter Pilot: Procedure Note Donotuseinterpreter, Image - 07/28/[address] [place] [address] [address] Scan Report Signed Patient: Jennifer Wing#: [id number] : 3Acct:[id number] Age/Sex: 79 / FADM Date: 07/28/25 Loc: .ED Attending Dr: Ordering Physician: Cuco Amador Date of Service: 07/28/25 Procedure(s): CT angio chest PE protocol Accession Number(s): [id number] cc: Cuco Amador; Name,Nitin PIKE Report Number: [id number]: Total DLP = 311.00 mGy-cm Reason for [...] in OV> 07/28/252034 DD/ 34 TD/TT: 07/28/252034 Commuter Pilot: [facility] External Provider IMG CT PROCEDURES Final Result * CT Abdomen Pelvis w/ Contrast (07/28/2025 8:01 PM EDT) Anatomical Region Laterality Modality Body, Pelvis, Abdomen Computed T omography 07/28/2025 8:01 PM EDT Narrative 07/28/2025 8:03 PM EDT [place] [address] [address] Scan Report Signed Patient: Noreen Wing MR#: [id number] : 1945 Acct:[id number] Age/Sex: 79 / F ADM Date: 07/28/25 Loc: HO.ED Attending Dr: Ordering Physician: Cuco Amador Date of Service: 07/28/25 Procedure(s): CT abdomen pelvis w IV con Accession Number(s): [id number] cc: Cuco Amador; Name,Nitin PIKE Report Number: [id number]: Total DLP = 539.64 mGy-cm Reason for [...] in OV> 07/28/252001 DD/ 00 TD/TT: 07/28/252000 Commuter Pilot: Procedure Note Donotuseinterpreter, Image - 07/28/[address] [place] [address] [address] Scan Report Signed Patient: Noreen WingMR#: [id number] : 1945cct:[id number] Age/Sex: 79 / FADM Date: 07/28/25 Loc: HO.ED Attending Dr: Ordering Physician: Cuco Amador Date of Service: 07/28/25 Procedure(s): CT abdomen pelvis w IV con Accession Number(s): [id number] cc: Cuco Amador; Name,Nitin PIKE Report Number: [id number]: Total DLP = 539.64 mGy-cm Reason for [...] in OV> 07/28/252001 DD/ 00 TD/TT: 07/28/252000 Commuter Pilot: [facility] External Provider IMG CT PROCEDURES Final Result * Partial Thromboplastin Time, Activated (APTT) (07/28/2025 5:01 PM EDT) [facility] Signature Partial Thromboplastin Time 31.4 26.7 - 34.1 SEC [facility] 07/28/2025 5:01 PM EDT 07/28/2025 5:05 PM EDT Generic External Data Provider LAB BLOOD ORDERAB LES Final Result Performing Organization Address [facility] Co de Phone Number [facility] [address] [place] [phone] * Lipase (07/28/2025 5:01 PM EDT) Lipase 31 8 - 78 U/L [facility] 07/28/2025 5:01 PM EDT 07/28/2025 5:05 PM EDT Generic External Data Provider LAB BLOOD ORDERAB LES Final Result Performing Organization Address [facility] Co de Phone Number [facility] [address] [place] [address] [phone] * POCT HGB A1C (01/10/2025 11:02 AM EST) [facility] Signature Hemoglobin A1C 5.1 4.0 - 6.0 % QC Media Lot # [id number] Lot# Expiration Date Blood 01/10/2025 11:0 2 AM EST Nitin Echevarria MD POINT OF CARE TEST ENTER/EDIT OR DERABLES Final Result * (ABNORMAL) LIPID PANEL, STANDARD (09/19/2022 8:08 AM EST) Pathologist [facility] Chol/HDLC Ratio 2.9 <5.0 (calc) CONVERTED LEGACY [...] LDL-C. Jack SS et al. JITENDRA. 2013;310(19): 0011-0248 (http://education.Synergos.com/faq/RDZ167) Non-HDL Cholesterol 88 <130 mg/dL (calc) CONVERTED [...] Most Recently Relevant to Health Maintenance Insurance [facility] CARE HOME OPTIONS (HMO D-SNP) [place] [id number] Care Teams Shade Cloth Finisher Relationship Specialty Start Date End Date Name, MD Nitin [address] [place] [address] PCP - General Family Medicine 08/26/17 [facility] 09/01/24
--- OUTSIDE RECORDS SUMMARY | 2025-09-22 06:21 | XMS_ITS | Encounter Summary ---
Author Organization [employer] Address [address] [facility] [address] [place] [address] Care Team Providers Care Top Executive Name Role Phone Name, Nitin PIKE Primary Care Provider [phone] Encounter Details Date Type Department Care Team ([facility] st Contact Info) Description 05/26/2023 Orders Only [facility] [address] [place] [address] Noreen Fox MD [address] [place] [address] Social History Tobacco Use Types Packs/Day Years [...] 05/11 9:37 AM EDT Renetta Solorzano * How difficult have these problems made it for you to do your work, take care of things at home, or get along with other people? Answer Date of Assessment Author Somewhat difficult 05/29/2023 9:37 AM Renetta Thornton * Over the past 2 weeks, how [...] Description 11/07/2025 10:00 AM EST Office Visit [facility] [address] [place] [address] Name, MD Nitin [address] [place] [address] documented as of this encounter Visit Diagnoses Not on filedocumented in this encounter Care Teams Top Executive Relationship Specialty Start Date End Date Name, MD Nitin [address] [place] [address] PCP - General Family Medicine 08/26/17 [facility] 09/01/24 documented as of this encounter
--- OUTSIDE RECORDS SUMMARY | 2025-09-22 06:21 | XMS_ITS | Encounter Summary ---
Author Organization [employer] Address [address] [facility] 7[address] [place] [address] Care Team Providers Care Uptwist Spinner Name Role Phone Name, Nitin PIKE Primary Care Provider [phone] Reason for Visit * Reason Onset Date Comments Referral 08/24/2025 Encounter Details Date Type Department Care Team ([facility] st Contact Info) Description 08/24/2025 Telephone [facility] MED[facility]INE [address] [place], [place] [phone] Name, MD Nitin [address] [place] [address] Referral Social History Tobacco Use Types Packs/Day [...] DATE: 09/21/25 TIME: 10 am Facility Name: [facility] Type of Specialist: Physical therapy Facility Phone # : [phone] Fax #: [phone] documented in this encounter Plan of Treatment Upcoming Encounters Date Type Department Care Team (Late st Contact Info) Description 11/07/2025 10:00 AM EST Office Visit [facility] MEDICINE [address] [place], [place] [phone] Name, MD Nitin [address] [place] [address] documented as of this encounter Visit Diagnoses Not on filedocumented in this encounter Additional Health Concerns Assessment Noted Time PHQ-9 Depression Total Score: 3 04/29/20 9:41 AM EDT documented as of this encounter Care Teams Uptwist Spinner Relationship Specialty Start Date End Date Name, MD Nitin [address] [place] [address] PCP - General Family Medicine 08/26/17 [facility] 09/01/24 documented as of this encounter
--- OUTSIDE RECORDS SUMMARY | 2025-09-22 06:21 | XMS_ITS | Clinical Summary ---
Author Organization [facility] Address [address] [place] [address] Phone Care Team Providers Care Weatherization Coordinator Name Role Phone Physician, No Pcp Primary [...] mmol/L LAB CHEMISTRY METHOD 09/22/2024 3:15 AM [facility] Potassium 4.6 3.5 - 5.5 mmol/L LAB CHEMISTRY METHOD 09/22/2024 3:15 AM [facility] Chloride 98 96 - 110 mmol/L LAB CHEMISTRY METHOD 09/22/2024 3:15 AM [facility] CO2 28 21 - 32 mmol/L LAB CHEMISTRY METHOD 09/22/2024 3:15 AM [facility] Anion Gap 6 3 - 11 LAB CHEMISTRY METHOD 09/22/2024 3:15 AM [facility] Glucose 119(H) 70 - 100 mg/dL LAB CHEMISTRY METHOD 09/22/2024 3:15 AM [facility] BUN 25 5 - 25 mg/dL LAB CHEMISTRY METHOD 09/22/2024 3:15 AM [facility] Creatinine 1.18(H) 0.50 - 1.10 mg/dL LAB CHEMISTRY METHOD 09/22/2024 3:15 AM [facility] eGFR 47(L) >=60 mL/min/1. 73m2 LAB CHEMISTRY METHOD 09/22/2024 3:15 AM [facility] Comment:Calculation based on the Chronic Kidney Disease Epidemiology Collaboration (CKD-EPI) equation refit without adjustment for race. BUN/Creatinine Ratio 21.2 LAB CHEMISTRY METHOD 09/22/2024 3:15 AM [facility] Calcium 9.3 8.5 - 10.5 mg/dL LAB CHEMISTRY METHOD 09/22/2024 3:15 AM [facility] AST (SGOT) 37 10 - 42 unit/L LAB CHEMISTRY METHOD 09/22/2024 3:15 AM [facility] ALT (SGPT) 25 10 - 60 unit/L LAB CHEMISTRY METHOD 09/22/2024 3:15 AM [facility] Alkaline Phosphatase 77 42 - 121 unit/L LAB CHEMISTRY METHOD 09/22/2024 3:15 AM [facility] Total Protein 8.0 [...] [facility] [address] [place] [address], from Last 3 Months or Most Recently Relevant to Health Maintenance Insurance [facility] MEDICARE Member Subscriber Plan / Payer (Ef fective 2021-Present) Name:Noreen Wing Relation to Subscriber:Self Name:Noreen Wing Payer ID:[id number] Group ID:[id number] Type:Not on file Address: [address] [place] [address] Care Teams Weatherization Coordinator Relationship Specialty Start Date End Date Physician, No Pcp PCP - General 09/22/24
--- OUTSIDE RECORDS SUMMARY | 2025-09-22 06:21 | XMS_ITS | Encounter Summary ---
Author Organization [employer] Address [address] [facility] [address] [place] [address] Care Team Providers Care Calender Let Off Helper Name Role Phone Name, Nitin PIKE Primary Care Provider [phone] Reason for Visit * Reason Comments Med Refill Encounter Details Date Type Department Care Team ([facility] st Contact Info) Description 06/28/2024 Refill [facility] [address] [place], [place] [phone] Mel Anguiano FNP [address] [place] [address] Social History Tobacco Use Types Packs/Day Years [...] 11/07/2025 10:00 AM EST Office Visit [facility] [address] [place] [address] Name, MD Nitin [address] [place] [address] documented as of this encounter Visit Diagnoses Not on filedocumented in this encounter Additional Health Concerns Assessment Noted Time PHQ-9 Depression Total Score: 6 02/13/20 24 9:14 AM EDT documented as of this encounter Care Teams Calender Let Off Helper Relationship Specialty Start Date End Date Name, MD Nitin [address] [place] [address] PCP - General Family Medicine 08/26/17 [facility] 09/01/24 documented as of this encounter
--- OUTSIDE RECORDS SUMMARY | 2025-09-22 06:21 | XMS_ITS | Encounter Summary ---
Author Organization [employer] Address 75 [facility] [address] [place] [address] Care Team Providers Care Splitting Machine Tender Name Role Phone Name, Nitin PIKE Primary Care Provider Reason for Visit * Reason Comments Med Refill Encounter Details Date Type Department Care Team (Late st Contact Info) Description 01/09/2025 Refill [facility] [address] [place], [place] [phone] Name, MD Nitin [address] [place] [address] Hypertension, unspecified type Social History Tobacco Use [...] [facility] [address] [place] [address] NameNitin MD [address] [place] [address] documented as of this encounter Visit Diagnoses Diagnosis Hypertension, unspecified type documented in this encounter Additional Health Concerns Assessment Noted Time PHQ-9 Depression Total Score: 6 02/13/20 9:14 AM EDT documented as of this encounter Care Teams Splitting Machine Tender Relationship Specialty Start Date End Date NameNitin MD [address] [place] [address] PCP - General Family Medicine 08/26/17 [facility] 09/01/24 documented as of this encounter
--- OUTSIDE RECORDS SUMMARY | 2025-09-22 06:21 | XMS_ITS | Encounter Summary ---
Author Organization [employer] Address 75 [facility] 7[address] [place] [address] Care Team Providers Care Pathologist Name Role Phone Name, Nitin PIKE Primary Care Provider [phone] Reason for Visit * Reason Onset Date Comments Hospital Follow-up 10/20/2024 Encounter Details Date Type Department Care Team ([facility] Contact Info) Description 10/20/2024 Telephone [facility] [address] [place], [place] [phone] Name, MD Nitin [address] [place] [address] Hospital Follow-up Social History Tobacco Use Types [...] from pt requesting a HDF appt. Hospital: [facility] Date of admission: 10/17 Discharge date: 10/19 Diagnosed: High Blood Pressure and Fever Contact pt at [phone] *Send message to [facility] Clinical Care Coordinators documented in this encounter Plan of Treatment Upcoming Encounters Date Type Department Care Team (Late st Contact Info) Description 11/07/2025 10:00 AM EST Office Visit [facility] [address] [place] [address] Name, MD Nitin [address] [place] [address] documented as of this encounter Visit Diagnoses Not on filedocumented in this encounter Additional Health Concerns Assessment Noted Time PHQ-9 Depression Total Score: 6 02/13/20 24 9:14 AM EDT documented as of this encounter Care Teams Pathologist Relationship Specialty Start Date End Date Name, MD Nitin [address] [place] [address] PCP - General Family Medicine 08/26/17 [facility] 09/01/24 documented as of this encounter
--- OUTSIDE RECORDS SUMMARY | 2025-09-22 06:21 | XMS_ITS | Encounter Summary ---
Author Organization [employer] Address [address] [facility] 7[address] [place] [address] Care Team Providers Care Industrial Economist Name Role Phone Name, Nitin PIKE Primary Care Provider [phone] Reason for Visit * Reason Onset Date Comments ER Follow-up 05/04/2024 Encounter Details Date Type Department Care Team ([facility] Contact Info) Description 05/04/2024 Telephone [facility] 230 [place], [place] [phone] Name, MD Nitin [address] [place] [address] ER Follow-up Social History Tobacco Use Types [...] 11:01 AM EDT T/C to pt. Through [employer]. id - [id number] for below message, No answer. LVM to call back [phone] . * Telephone Encounter - Adithya Solorzano - 05/04/2024 9:35 AM EDT Noreen with [facility] calling to report ED visit on : Date: 04/28 Hospital: [facility] Seen for: UTI, Nausea, Rash. Noreen advised will be forwarding message to team nurses. Please contact pt at [phone]. documented in this encounter Plan of Treatment Upcoming Encounters Date Type Department Care Team (Late st Contact Info) Description 11/07/2025 10:00 AM EST Office Visit [facility] [address] [place] [address] Name, MD Nitin [address] [place] [address] documented as of this encounter Visit Diagnoses Not on filedocumented in this encounter Additional Health Concerns Assessment Noted Time PHQ-9 Depression Total Score: 6 02/13/20 9:14 AM EDT documented as of this encounter Care Teams Industrial Economist Relationship Specialty Start Date End Date Name, MD Nitin [address] [place] [address] PCP - General Family Medicine 08/26/17 [facility] 09/01/24 documented as of this encounter
--- OUTSIDE RECORDS SUMMARY | 2025-09-22 06:22 | XMS_ITS | Encounter Summary ---
Author Organization [employer] Address [address] [facility] [address] [place] [address] Care Team Providers Care Photographic Processor Name Role Phone Name, Nitin PIKE Primary Care Provider [phone] Encounter Details Date Type Department Care Team ([facility] Contact Info) Description 01/06/2023 Orders Only [facility] [address] [place], [place] [phone] Lisha Kelly LPN Social History Tobacco Use [...] Visit [facility] MEDICINE [address] [place] [address] NameNitin MD [address] [place] [address] documented as of this encounter Visit Diagnoses Not on filedocumented in this encounter Care Teams Photographic Processor Relationship Specialty Start Date End Date NameNitin MD [address] [place] [address] PCP - General Family Medicine 08/26/17 [facility] 09/01/24 documented as of this encounter
--- OUTSIDE RECORDS SUMMARY | 2025-09-22 06:22 | XMS_ITS | Encounter Summary ---
Author Organization [employer] Address [address] [facility] [address] [place] [address] Care Team Providers Care Disease Control Inspector Name Role Phone Name, Nitin PIKE Primary Care Provider [phone] Reason for Visit * Reason Onset Date Comments Call Back Request 03/14/2025 Encounter Details Date Type Department Care Team ([facility] st Contact Info) Description 03/14/2025 Telephone [facility] MEDICINE [address] [place], [place] [phone] Name, MD Nitin [address] [place] [address] Call Back Request Social History Tobacco Use [...] Description 11/07/2025 10:00 AM EST Office Visit [facility] MED[facility] [address] [place] [address] Name, MD Ntiin [address] [place] [address] documented as of this encounter Visit Diagnoses Not on filedocumented in this encounter Additional Health Concerns Assessment Noted Time PHQ-9 Depression Total Score: 6 02/13/20 9:14 AM EDT documented as of this encounter Care Teams Disease Control Inspector Relationship Specialty Start Date End Date Name, MD Nitin [address] [place] [address] PCP - General Family Medicine 08/26/17 [facility] 09/01/24 documented as of this encounter
--- OUTSIDE RECORDS SUMMARY | 2025-09-22 06:22 | XMS_ITS | Data Portability ---
Author Organization [employer] [facility] Address [address] [place] [address] Care Team Providers Care Medical Services Assistant Name Role Phone HIM [facility] Primary Care Provider [phone] Assessment No assessment recorded. Plan of Treatment [...] Last Updated DateTime 18 /min 74 /min 53391.9 28 g 98 % 98 % 100 [degF] 130/66 mm[Hg] Not Available [employer] 15:33:18 Social History None recorded. Functional Status None recorded. Mental Status None recorded. Family History Nothing Reported. Medical History No medical history recorded. Gynecological HistoryNo gynecological history recorded. 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 She called today because she insists on having the catheter removed. It was removed by the steel pan form placing supervisor with the understand ing that if she can't void, she will need to go the the ER. The patient agreed with this plan. [id number] Rohit Benton MD [facility] - [address] [address] 02/06/2024 15:33:16 02/09/2024 18:20:42 Chronic retention of urine [id number] R33.8 Has bunn catheter which was recently [...] ID Guarantor Name 02/09/2024 1 [facility] - DOS ON OR AFTER 2023 - DUAL ELIGIBLE - USP OPTIONS AND ONE CARE (MEDICARE REPLACEMENT/ADV ANTAGE - HMO) Noreen Wing [id number] Noreen Wing Notes Date Note Type Note Provider Name and Address Organization Details Recorded Time 01/31/2024 text/html ROS as noted in the HPI [facility] Nurse Triage Notes (Joana Dominique): Reason For Request: Bunn catheter malfunction/painful Chief Complaints: UTI/Pyelonephritis, Equipment-Related Allergies: No Known Comments: Hungarian speaking member who denies any PMH, denies [...] KAYE Verified name//address Epifanio Mcintyre MD [address] [facility], [place], [address], [employer] 01/31/2024 19:05:57 02/06/2024 text/html ROS as noted in the HPI HPI: Member asked for HV tomorrow after 10 AM if possible. Treated at the [facility] today, for F/u leaking, stated is [...] son Jame Wing. Member is 78 y/o Hungarian speaking female who [facility] with her son. Member has [...] sees her BH counselor weekly and Prescriber GROUP TESTER Elton monthly if needed or every 2-3 months, .................... .................... .................... .................... .................... .................... .................... . [facility] Nurse Triage Notes (Zafar Irving): Comments: Reviewed HPI .................... .................... .................... .................... .................... .................... .................... . Clipper Machine Operator Note From [place]: Pt sts doesn [...] Vitals stable. Urine clear and light yellow. [facility] contacted and advised pt to rest and advised to make sure she goes to appt Friday. Pt son was used as group segment consultant. Pt education on signs indicating the ER. Clipper Machine Operator Allergies: Clindamycin .................... .................... .................... .................... .................... .................... .................... . Disposition: Fulfilled Rohit Benton MD [address], [place], [address], [employer] 02/06/2024 17:58:19 OBGyn Episode No OBEpisode recorded.
--- OUTSIDE RECORDS SUMMARY | 2025-09-22 06:22 | XMS_ITS | Encounter Summary ---
Author Organization [employer] Address [address] [facility] [address] [place] [address] Care Team Providers Care Heat Plant Specialist Name Role Phone Name, Nitin PIKE Primary Care Provider [phone] Reason for Visit * Reason Onset Date Comments Durable Medical Equipment 12/09/2023 Encounter Details Date Type Department Care Team ([facility] st Contact Info) Description 12/09/2023 Telephone [facility] MEDICINE [address] [place], [place] [phone] Name, MD Nitin [address] [place], [place] [phone] Durable Medical Equipment Social History Tobacco Use [...] EST DME rx faxed to [facility] as requested. RN will consult with S nurse and provide referral. * Telephone Encounter - Fozia Jacob RN - 12/09/2023 4:58 PM EST Call returned to [facility] at [facility] [phone] ext. [phone]. [facility] states that [facility] attempted to provide PT at home but pt refused. [facility] pt is requesting outpatient PT. [facility] pt is seeing a counselor more regularly and has agreed to VNA referral. Reports pt has had 3 falls in the past 2 months. [facility] states [facility] no longer has visiting nurses. [facility] recommends [facility] or [facility] for VNA referral. [facility] also requesting DME rx for rollator walker and a straight cane. Requests that DME rx be faxed to [phone]. Advised requests will be sent to pcp. * Telephone Encounter - Adithya Solorzano - 12/09/2023 4:25 PM EST Tc from [facility] requesting DME: Rollator walker . documented in this encounter Plan of Treatment Upcoming Encounters Date Type Department Care Team (Late st Contact Info) Description 11/07/2025 10:00 AM EST Office Visit [facility] [address] [place] [address] Name, MD Nitin [address] [place] [address] documented as of this encounter Visit Diagnoses Not on filedocumented in this encounter Additional Health Concerns Assessment Noted Time PHQ-9 Depression Total Score: 12 023 9:37 AM EDT documented as of this encounter Care Teams Heat Plant Specialist Relationship Specialty Start Date End Date Name, MD Nitin [facility] [place] [address] PCP - General Family Medicine 08/26/17 [facility] 09/01/24 documented as of this encounter
--- OUTSIDE RECORDS SUMMARY | 2025-09-22 06:22 | XMS_ITS | Encounter Summary ---
Author Organization [employer] Address [address] [facility] [address] [place] [address] Care Team Providers Care Physics And Astronomy Professor Name Role Phone Name, Nitin PIKE Primary Care Provider [phone] Reason for Visit * Reason Comments Med Refill Encounter Details Date Type Department Care Team (Late Contact Info) Description 03/02/2023 Refill [facility] [address] [place] [address] Karely Patiño MD [address] [place] [address] [phone] Social History Tobacco Use Types Packs/Day Years [...] EST Office Visit [facility] [address] [place] [address] Name, MD Nitin [address] [place] [address] documented as of this encounter Visit Diagnoses Not on filedocumented in this encounter Care Teams Physics And Astronomy Professor Relationship Specialty Start Date End Date Name, MD Nitin [address] [place] [address] PCP - General Family Medicine 08/26/17 [facility] 09/01/24 documented as of this encounter
--- OUTSIDE RECORDS SUMMARY | 2025-09-22 06:22 | XMS_ITS | Encounter Summary ---
Author Organization [employer] Address [address] [facility] [address] [place] [address] Care Team Providers Care Front End Software Developer Name Role Phone Name, Nitin PIKE Primary Care Provider [phone] Reason for Visit * Reason Onset Date Comments triage 12/18/2022 Encounter Details Date Type Department Care Team ([facility] st Contact Info) Description 12/18/2022 Telephone [facility] [address] [place], [place] [phone] Name, MD Nitin [address] [place] [address] triage Social History Tobacco Use Types Packs/Day [...] 12/18/2022 2:35 PM EST Called pt. Via [employer] electroencephalograph technologist [phone] Eduardo. Pt. States that she has a [...] phone. Please reach out to pt. With Bruneian speaking another time to see what her [...] AM EST Office Visit [facility] [address] [place] [address] Name, MD Nitin [address] [place] [address] documented as of this encounter Visit Diagnoses Not on filedocumented in this encounter Care Teams Front End Software Developer Relationship Specialty Start Date End Date Name, MD Nitin [address] [place] [address] PCP - General Family Medicine 08/26/17 [facility] 09/01/24 documented as of this encounter
--- OUTSIDE RECORDS SUMMARY | 2025-09-22 06:22 | XMS_ITS | Encounter Summary ---
Author Organization [employer] Address [address] [facility] 7t [place] [address] Care Team Providers Care Cremator Name Role Phone Name, Nitin PIKE Primary Care Provider [phone] Encounter Details Date Type Department Care Team (Late st Contact Info) Description 09/19/2025 Orders Only GENERIC EXTERNAL DATA DEPARTMENT [...] [facility] [address] [place] [phone] Name, MD Nitin [address] [place] [address] documented as of this encounter Procedures Procedure Name Priority Date/Time Associated Diagnosis Comments URINALYSIS, COMPLETE, WITH REFLEX TO CULTURE Routine 09/19/2025 3:15 AM EST CULTURE, URINE, ROUTINE Routine 09/19/2025 3:15 AM EST HIGH SENSITIVITY TROPONIN I Routine 09/19/2025 12:26 AM EST CBC WITH AUTO DIFFERENTIAL Routine 09/19/2025 12:26 AM EST PROTHROMBIN TIME-INR Routine 09/19/2025 12:26 AM EST COMPREHENSIVE METABOLIC PANEL Routine 09/19/2025 12:26 AM EST documented in this encounter Results * Culture, Urine, Routine (09/19/2025 3:15 AM EST) Urine Urine specimen obtained by clean catch procedure / Unknown 09/19/2025 3:15 AM EST 09/19/2025 3:34 AM EST Comment:UACC Narrative [facility] - 09/20/2025 11:42 AM EST Urine Culture Report Result Urine Culture 10,000 to 50,000 cfu/ml Urine Culture Mixed bacterial jann characteristic of Urine Culture urogenital contamination. Specimen Source: Urine clean catch us Generic External Data Provider LAB MICROBIOLOGY - GENERAL ORDERABLES Final Result Performing Organization Address City/[facility]/ZIP Co de Phone Number [facility] [address] [place] [phone] * (ABNORMAL) Urinalysis, Complete, with Reflex to Culture (09/19/2025 3:15 AM EST) Color Urine Yellow [facility] Appearance Urine Clear [facility] PH 5.5 5.0 - 9.0 [facility] Glucose Urine UA Negative Negative mg/dL [facility] Urine Blood Negative Negative [facility] Specific Powell - Urine 1.020 1.005 - 1.025 [facility] Urine Protein Negative Neg-Trace mg/dL [facility] Urine Ketones Negative Negative mg/dL [facility] Nitrite Urine Negative Negative [facility] Leukocyte Esterase Urine Moderate (2+)(A) Negative [facility] RBC Urine 0-2 0 - 2 /HPF [facility] Urine WBC 21-50(A) 0 - 5 /HPF [facility] Urine Squamous Epithelial Cell 0-2 0 - 2 /HPF [facility] Urine Bacteria None Seen None Seen [facility] Hyaline Casts, Urine 0-2 0 - 2 /LPF [facility] 09/19/2025 3:15 AM EST 09/19/2025 3:24 AM EST Narrative [facility] - 09/19/2025 3:34 AM EST [id number], Clean Catch us Generic External Data Provider LAB URINE ORDERAB LES Final Result Performing Organization Address City/[facility]/ZIP Co de Phone Number [facility] [address] [place] [phone] * High Sensitivity Troponin I (09/19/2025 12:26 AM EST) Pathologist [facility] TROPONIN I HIGH SENSITIVITY <2.7 <3.5 - 17.0 ng/L [facility] Comment:The Mckeon high sens itivity Troponin-I results should beused in conjunction with other diagnostic information suchas ECG, clinical observations and information, and patientsymptoms to aid in the diagnosis of PR. 09/19/2025 12:2 6 AM EST 09/19/2025 12:28 AM EST us Generic External Data Provider LAB BLOOD ORDERAB LES Final Result [facility] [address] [place] [phone] * (ABNORMAL) Comprehensive Metabolic Panel (09/19/2025 12:26 AM EST) [facility] Sodium 136 135 - 145 mmol/L [facility] Potassium 4.1 3.3 - 5.1 mmol/L [facility] Chloride 101 96 - 108 mmol/L [facility] Carbon Dioxide 25 22 - 29 mmol/L [facility] Anion Gap 14 12 - 20 [facility] Urea Nitrogen (BUN) 33(H) 9 - 16 mg/dL [facility] Creatinine, Serum 0.99 0.5 - 1.4 mg/dL [facility] Creatinine Clr Calc Pharmacy 45.4 [facility] Comment:Provided height and weight: 157.48 cm,86.183 kg.eGFR (calculated from the MDRD study equation) and eCrCl(calculated from the Cockcroft-Gault equation) are based ondifferent parameters and may not yield comparable results.If eCrCl result is absurd, please check patient'sheight/weight. Estimated Glomerular Filt Rate 54 [facility] Comment:Chronic Kidney Disea se: Estimated GFR < 60 mL/min/1.98h7Qnrhbb Kidney Disease: Estimated GFR < 15 mL/min/1.73m2 Glucose 108 60 - 115 mg/dL [facility] Calcium 8.9 8.4 - 10.2 mg/dL [facility] Bilirubin, Total 0.3 0.0 - 1.0 mg/dL [facility] Aspartate Amino Transferase 26 5 - 31 U/L [facility] Alanine Aminotransferase 14 0 - 31 U/L [facility] Total Protein 7.6 6.5 - 8.0 g/dL [facility] Albumin Level 4.1 3.5 - 5.0 g/dL [facility] Alkaline Phosphatase 92 39 - 117 U/L [facility] 09/19/2025 12:2 6 AM EST 09/19/2025 12:28 AM EST us Generic External Data Provider LAB BLOOD ORDERAB LES Final Result Performing Organization Address [facility]/RUST de Phone Number [facility] [address] [place] [phone] * Prothrombin Time-INR (09/19/2025 12:26 AM EST) Prothrombin Time 12.5 11.2 - 13.5 SEC [facility] INTERNATIONAL NORM RATIO 1.0 0.9 - 1.1 [facility] Comment:INTERNATIONAL NORMAL IZED RATIO (INR) [...] Final Result Performing Organization Address [facility]/RUST de Phone Number [facility] [address] [place] [phone] * (ABNORMAL) CBC auto differential (09/19/2025 12:26 AM EST) White Blood Count 5.7 4.8 - 10.8 X10*3/uL [facility] Red Blood Count 3.90(L) 4.20 - 5.50 X10*6/uL [facility] Hemoglobin 10.9(L) 12.0 - 16.0 g/dl [facility] Hematocrit 33.0(L) 37.0 - 47.0 % [facility] Mean Corpuscular Volume 84.6 80.0 - 98.0 fL [facility] Mean Corpuscular Hemoglobin 27.9 27.0 - 33.0 pg [facility] Mean Corpuscular HGB Conc 33.0 31.0 - 35.0 g/dl [facility] Red Cell Distribution Width 14.0 11.0 - 16.0 % [facility] Platelet Count 272 160 - 400 X10*3/uL [facility] Mean Platelet Volume 8.2(L) 9.4 - 12.3 fL [facility] Neutrophils Percent Auto 63.3 45 - 73 % [facility] Imm Gran Pct Auto 0.4 0.0 - 0.4 % [facility] Lymphocytes Percent Auto 23.4 20 - 40 % [facility] Monocytes Percent Auto 10.4 2 - 11 % [facility] Eosinophils Percent Auto 1.6 0 - 4 % [facility] Basophils Percent Auto 0.9 0 - 2 % [facility] NRBC Pct Auto 0.0 0.0 - 0.2 /100WBC [facility] Neutrophils Absolute Auto 3.6 2.0 - 8.3 x10*3/uL [facility] Imm Gran Abs Auto 0.02 0.00 - 0.03 X10*3/uL [facility] Lymphocytes Absolute Auto 1.3 1.2 - 4.9 X10*3/uL [facility] Monocytes Absolute Auto 0.6 0.1 - 1.2 X10*3/uL [facility] Eosinophils Absolute Auto 0.1 0.0 - 0.4 X10*3/uL [facility] Basophils Absolute Auto 0.1 0.0 - 0.2 X10*3/uL [facility] NRBC Abs Auto 0.000 0.0 - 0.012 X10*3/uL [facility] 09/19/2025 12:2 6 AM EST 09/19/2025 12:28 AM EST us Generic External Data Provider LAB BLOOD ORDERAB LES Final Result [facility] [address] [place] [phone] documented in this encounter Visit Diagnoses Not on filedocumented in this encounter Additional Health Concerns Assessment Noted Time PHQ-9 Depression Total Score: 3 04/29/20 25 9:41 AM EDT documented as of this encounter Care Teams Cremator Relationship Specialty Start Date End Date Name, MD Nitin [address] [place] [address] PCP - General Family Medicine 08/26/17 [facility] 09/01/24 documented as of this encounter
--- OUTSIDE RECORDS SUMMARY | 2025-09-22 06:22 | XMS_ITS | Encounter Summary ---
Author Organization [employer] Address [address] [facility] [address] [place] [address] Care Team Providers Care Clean Up Worker Name Role Phone Name, Nitin PIKE Primary Care Provider [phone] Encounter Details Date Type Department Care Team (Late st Contact Info) Description 11/06/2022 Orders Only [facility]EDS [address] [place], [place] [phone] Lisha Kelly LPN Social History Tobacco Use [...] EST Office Visit [facility] [address] [place] [address] NameNitin MD [address] [place] [address] documented as of this encounter Visit Diagnoses Not on filedocumented in this encounter Care Teams Clean Up Worker Relationship Specialty Start Date End Date Nitin Echevarria MD [address] [place] [address] PCP - General Family Medicine 08/26/17 [facility] 09/01/24 documented as of this encounter
--- OUTSIDE RECORDS SUMMARY | 2025-09-22 06:22 | XMS_ITS | Encounter Summary ---
Author Organization [employer] Address [address] [facility] [address] [place] [address] Care Team Providers Care Library Circulation Technician Name Role Phone Name, Nitin PIKE Primary Care Provider [phone] Encounter Details Date Type Department Care Team ([facility] Contact Info) Description 12/17/2022 Orders Only [facility] [address] [place], [place] [phone] Lisha Kelly LPN Social History Tobacco Use [...] EST Office Visit [facility] [address] [place] [address] Nitin Echevarria MD [address] [place] [address] documented as of this encounter Visit Diagnoses Not on filedocumented in this encounter Care Teams Library Circulation Technician Relationship Specialty Start Date End Date NameNitin MD [address] [place] [address] PCP - General Family Medicine 08/26/17 [facility] 09/01/24 documented as of this encounter
--- OUTSIDE RECORDS SUMMARY | 2025-09-22 06:22 | XMS_ITS | Encounter Summary ---
Author Organization [employer] Address [address] [facility] [address] [place] [address] Care Team Providers Care Statement Clerk Name Role Phone NameNitin MD Primary Care Provider [phone] Reason for Referral * Consultation (Routine) - Closed Specialty Diagnoses / Procedures Referred By Sangita mendez Referred To Contact Physical Therapy Diagnoses Acute bilateral back pain, unspecified back location NameNitin MD [address] [place] [address] Phone: tel: fax: [facility] Physical Therapy [address] [place] [address] Phone: tel: fax: Referral ID Status Reason Start Date Expiration Date V isits Requested Visits Authorized [id number] Closed Specialty Services Required 09/21/2025 09/21/2026 1 1 Reason for Visit * Reason Onset Date Comments Request For Order(s) 09/21/2025 Referral 09/21/2025 Encounter Details Date Type Department Care Team (Late st Contact Info) Description 09/21/2025 Telephone [facility] [address] [place] [phone] Nitin Vizcrara MD [address] [place], [place] [phone] Request For Order(s); Referral Social History Tobacco Use Types Packs/Day [...] Telephone Encounter - Giuliana Villeda RN - 09/21/2025 9:43 AM EST Referral faxed to [facility] PT at [phone]. TC placed to Daphne at [facility] to advise order placed and faxed to office at provided fax number. Daphne verbalized understanding and denies questions at this time. * Addendum Note - Nitin Vizcarra MD - 09/21/2025 9:37 AM ESTAddended by: NITIN VIZCARRA on: 09/21/2025 09:37 AM Modules accepted: Orders * Telephone Encounter - Nitin Vizcarra MD - 09/21/2025 9:37 AM EST I just put order in * Telephone Encounter - Giuliana Villeda RN - 09/21/2025 9:26 AM EST Incoming call from Noreen in [facility] who states [facility] PT is looking for a PT order for pt. Call transferred from CRS to this RN. Daphne with [facility] states pt came into [facility] with an old order that placed in 2022. Daphne states pt was seen by our office recently and is requesting PCP place PT order for acute left sided back pain. Pt has an appointment today. Daphne states if order is not able nahomy placed, PT appointment will be cancelled. Advised message to be sent to PCP for review. Daphne provided phone number [phone] and fax number [phone]. Message forwarded to PCP for review. documented in this encounter Plan of Treatment Upcoming Encounters Date Type Department Care Team (Late st Contact Info) Description 11/07/2025 10:00 AM EST Office Visit [facility] [address] [place] [address] Nitin Vizcarra MD [address] [place] [address] Scheduled Referrals Name Type Priority Associated Diagnoses Orde r Schedule Referral to Physical Therapy Outpatient Referral Routine Acute bilateral back pain, unspecified back location Expected: 09/21/2025 (Approximate), Expires: 09/21/2026 documented as of this encounter Visit Diagnoses Diagnosis Acute bilateral back pain, unspecified back location- Primary documented in this encounter Additional Health Concerns Assessment Noted Time PHQ-9 Depression Total Score: 3 04/29/20 25 9:41 AM EDT documented as of this encounter Care Teams Statement Clerk Relationship Specialty Start Date End Date Name, MD Nitin [address] [place] [address] PCP - General Family Medicine 08/26/17 [facility] 09/01/24 documented as of this encounter
--- OUTSIDE RECORDS SUMMARY | 2025-09-22 06:22 | XMS_ITS | Encounter Summary ---
Author Organization [employer] Address [address] [facility] [address] [place] [address] Care Team Providers Care Manager Intensive Care Unit Name Role Phone Name, Nitin PIKE Primary Care Provider [phone] Reason for Visit * Reason Onset Date Comments Order(s) 12/09/2023 Encounter Details Date Type Department Care Team ([facility] Contact Info) Description 12/09/2023 Telephone [facility] [address] [place], [place] [phone] Name, MD Nitin [address] [place], [place] [phone] Order(s) Social History Tobacco Use Types Packs/Day [...] orders. If any questions please contact Noreen [phone]. documented in this encounter Plan of Treatment Upcoming Encounters Date Type Department Care Team (Late st Contact Info) Description 11/07/2025 10:00 AM EST Office Visit [facility] [address] [place] [phone] Name, MD Nitin [address] [place] [address] documented as of this encounter Visit Diagnoses Not on filedocumented in this encounter Additional Health Concerns Assessment Noted Time PHQ-9 Depression Total Score: 12 023 9:37 AM EDT documented as of this encounter Care Teams Manager Intensive Care Unit Relationship Specialty Start Date End Date Name, MD Nitin [address] [place] [address] PCP - General Family Medicine 08/26/17 [facility] 09/01/24 documented as of this encounter
--- OUTSIDE RECORDS SUMMARY | 2025-09-22 06:22 | XMS_ITS | Encounter Summary ---
Author Organization [employer] Address [address] [facility] [address] [place] [address] Care Team Providers Care Chemical Unit Operator Name Role Phone Name, Nitin PIKE Primary Care Provider [phone] Reason for Visit * Reason Comments Med Refill Encounter Details Date Type Department Care Team (Late st Contact Info) Description 09/19/2025 Refill [facility] PEDS [address] [place], [place] [phone] Name, MD Nitin [address] [place] [address] Social History Tobacco Use Types Packs/Day Years [...] Office Visit [facility] MEDICINE [address] [place] [address] NameNitin MD [address] [place] [address] documented as of this encounter Visit Diagnoses Not on filedocumented in this encounter Additional Health Concerns Assessment Noted Time PHQ-9 Depression Total Score: 3 04/29/20 25 9:41 AM EDT documented as of this encounter Care Teams Chemical Unit Operator Relationship Specialty Start Date End Date Name, MD Nitin [address] [place] [address] PCP - General Family Medicine 08/26/17 [facility] 09/01/24 documented as of this encounter
--- OUTSIDE RECORDS SUMMARY | 2025-09-22 06:22 | XMS_ITS | Encounter Summary ---
Author Organization [employer] Address [address] [facility] [address] [place] [address] Care Team Providers Care Vehicle Care Specialist Name Role Phone Name, Nitin PIKE Primary Care Provider [phone] Reason for Visit * Reason Onset Date Comments Verbal Orders 01/02/2024 Encounter Details Date Type Department Care Team ([facility] st Contact Info) Description 01/02/2024 Telephone [facility] [address] [place], [place] [phone] Name, MD Nitin [address] [place] [address] Verbal Orders Social History Tobacco Use Types [...] No answer. LVM to call back on [phone]. * Telephone Encounter - Melany Santos RN - 01/06/2024 10:25 AM EST Please review and advise for below request. * Telephone Encounter - Deana Bazzi - 01/02/2024 3:44 PM EST Tc from [facility] with [facility] requesting verbal orders for discharge pt from Occupational Therapy, due to pt refuses services, please contact [facility] at [phone]. documented in this encounter Plan of Treatment Upcoming Encounters Date Type Department Care Team (Late st Contact Info) Description 11/07/2025 10:00 AM EST Office Visit [facility] MED[facility]INE [address] [place] [address] Name, MD Nitin [address] [place] [address] documented as of this encounter Visit Diagnoses Not on filedocumented in this encounter Additional Health Concerns Assessment Noted Time PHQ-9 Depression Total Score: 12 023 9:37 AM EDT documented as of this encounter Care Teams Vehicle Care Specialist Relationship Specialty Start Date End Date Name, MD Nitin [address] [place] [address] PCP - General Family Medicine 08/26/17 [facility] 09/01/24 documented as of this encounter
--- OUTSIDE RECORDS SUMMARY | 2025-09-22 06:22 | XMS_ITS | Encounter Summary ---
Author Organization [employer] Address [address] [facility] [address] [place] [address] Care Team Providers Care Shrimp Peeling Machine Tender Name Role Phone Name, Nitin PIKE Primary Care Provider [phone] Reason for Visit * Reason Onset Date Comments Verbal Orders 12/15/2023 Encounter Details Date Type Department Care Team ([facility] st Contact Info) Description 12/15/2023 Telephone [facility] MED[facility]INE [address] [place], [place] [phone] Name, MD Nitin [address] [place] [address] Verbal Orders Social History Tobacco Use Types [...] 12:03 PM EST Tc from [facility] with [employer] requesting verbal order to see pt 2 times a week for 4 weeks for Occupational Therapy, please contact [facility] at [phone] documented in this encounter Plan of Treatment Upcoming Encounters Date Type Department Care Team (Late st Contact Info) Description 11/07/2025 10:00 AM EST Office Visit [facility] [address] [place] [address] Name, MD Nitin [address] [place] [address] documented as of this encounter Visit Diagnoses Not on filedocumented in this encounter Additional Health Concerns Assessment Noted Time PHQ-9 Depression Total Score: 12 023 9:37 AM EDT documented as of this encounter Care Teams Shrimp Peeling Machine Tender Relationship Specialty Start Date End Date Name, MD Nitin [address] [place] [address] PCP - General Family Medicine 08/26/17 [facility] 09/01/24 documented as of this encounter
--- OUTSIDE RECORDS SUMMARY | 2025-09-22 06:22 | XMS_ITS | Encounter Summary ---
Author Organization [employer] Address [address] [facility] [address] [place] [address] Care Team Providers Care Nut Tightener Name Role Phone Name, Nitin PIKE Primary Care Provider [phone] Reason for Visit * Reason Onset Date Comments FYI 01/21/2024 ER Follow-up 01/21/2024 Encounter Details Date Type Department Care Team ([facility] st Contact Info) Description 01/21/2024 Telephone [facility] MEDICINE [address] [place], [place] [phone] Name, MD Nitin [address] [place] [address] FYI; ER Follow-up Social History Tobacco Use [...] - 01/21/2024 1:54 PM EDT Message from [facility] ED noted. [facility] note sent to medical records. PCP does not rx Trazodone. Pt to f/u with psych prescriber. Pt is scheduled for f/u with pcp 02/13/24. * Telephone Encounter - Janette Huitron - 01/21/2024 9:45 AM EDT Tc from nata with [facility] ED calling in regards to pt. States pt was seen today for anxiety and is requesting trazodone. Will discharge pt with no medication change. Would also like to advise provider, pt was seen [place] [facility] [place] for anxiety/insomnia as well documented in this encounter Plan of Treatment Upcoming Encounters Date Type Department Care Team (Late st Contact Info) Description 11/07/2025 10:00 AM EST Office Visit [facility] MEDICINE [address] [place] [address] Name, MD Nitin [address] [place] [address] documented as of this encounter Visit Diagnoses Not on filedocumented in this encounter Additional Health Concerns Assessment Noted Time PHQ-9 Depression Total Score: 12 023 9:37 AM EDT documented as of this encounter Care Teams Nut Tightener Relationship Specialty Start Date End Date Name, MD Nitin [address] [place] [address] PCP - General Family Medicine 08/26/17 [facility] 09/01/24 documented as of this encounter
--- NOTE | 2025-09-22 06:56 | ED.DIZZY ---
HPI - Dizziness General Chief Complaint: Dizziness Stated Complaint: dizziness Time Seen by Provider: 09/22/25 05:59 Source: patient and EMS Mode of arrival: EMS Limitations: no limitations History of Present Illness ED Provider: Dr. Marta Briscoe HPI Narrative: patient comes to the emergency room complaining of dizziness. Patient states that when she moves her head, everything spins around. Patient states that she has been diagnosed with vertigo in the past. States that she ran out of her medications for vertigo. Patient denies chest pain or shortness of breath. Related Data Home Medications ?Medication ?Instructions ?Recorded ?Confirmed omeprazole 20 mg tablet,delayed 20 mg PO DAILY@0630 08/09/20 08/22/25 release aspirin 81 mg tablet,delayed 81 mg PO QAM 01/28/24 08/22/25 release bisacodyl 5 mg tablet,delayed 5 mg PO DAILY PRN constipation 01/28/24 08/22/25 release ferrous sulfate 325 mg (65 mg 325 mg PO DAILY 01/28/24 08/22/25 iron) tablet (FeroSul) melatonin 10 mg tablet,extended 10 mg PO BEDTIME PRN Insomnia 01/28/24 08/22/25 release multivitamin 1 tab PO QAM 01/28/24 08/22/25 rosuvastatin 20 mg tablet 20 mg PO BEDTIME 01/28/24 08/22/25 trazodone 50 mg tablet 50 mg PO BEDTIME 01/28/24 08/22/25 amlodipine 10 mg tablet 10 mg PO DAILY 02/09/24 08/22/25 acetaminophen 500 mg tablet 500 mg PO Q8H PRN pain 08/09/24 08/22/25 cholecalciferol (vitamin D3) 25 25 mcg PO DAILY 08/20/24 08/22/25 mcg (1,000 unit) tablet sertraline 100 mg tablet 100 mg PO DAILY 03/16/25 08/22/25 apixaban 5 mg tablet 5 mg PO BID 08/22/25 08/22/25 clonazepam 0.5 mg tablet 0.5 mg PO TID 08/22/25 08/22/25 fluticasone propionate 50 2 spray intranasal DAILY PRN 08/22/25 08/22/25 mcg/actuation nasal Allergic Symptoms spray,suspension (Flonase Allergy Relief) hydroxyzine HCl 25 mg tablet 10 mg PO DAILY PRN anxiety 08/22/25 08/22/25 ketotifen fumarate 0.025 % (0.035 1 drp ophthalmic (eye) BID PRN 08/22/25 08/22/25 %) eye drops allergies mirtazapine 45 mg tablet 45 mg PO BEDTIME 08/22/25 08/22/25 valsartan 160 mg tablet 160 mg PO QPM 08/22/25 08/22/25 Previous Rx's ?Medication ?Instructions ?Recorded metoprolol succinate 50 mg 50 mg PO DAILY #90 tabs 09/28/20 tablet,extended release 24 hr docusate sodium 100 mg capsule 200 mg (2 x 100 mg) PO BID #20 caps 02/24/25 (Colace) ibuprofen 200 mg tablet 200 mg PO Q6H PRN pain #20 tabs 07/24/25 meclizine 12.5 mg tablet 12.5 mg PO TID PRN dizziness or 07/26/25 vertigo #30 tabs meclizine 25 mg tablet 25 mg PO BID PRN dizziness #14 tabs 09/22/25 Allergies Allergy/AdvReac Type Severity Reaction Status Date / Time penicillin G (Penicillin G) Allergy Severe ITCHY/RASH Verified 09/22/25 06:10 Sulfa (Sulfonamide Allergy Severe ITCHY,RASH, Verified 09/22/25 06:10 Antibiotics) (Sulfa rash (Sulfonamides)) trimethoprim (From Bactrim) Allergy Severe HIVES Verified 09/22/25 06:10 Penicillins Allergy Intermediate Hives Verified 09/22/25 06:10 sulfamethoxazole (From Allergy Mild Hives Verified 09/22/25 06:10 Bactrim) Review of Systems Review of Systems: Constitutional : No Weight loss, No Fever, No Chills, No Night Sweats, No Fatigue, No Malaise ENT/Mouth : No Hearing loss, No Ear Pain, No Nasal Congestion, No Sinus Pain, No Hoarseness, No sore throat, No Rhinorrhea, No Swallowing Difficulty Eyes: No Eye Pain, No Swelling, No Redness, No Foreign Body, No Discharge, No Vision Changes Cardiovascular : No Chest Pain, No SOB, No Dyspnea on Exertion, No Orthopnea, No Edema, No Palpitations Respiratory : No Cough, No Sputum, No Wheezing, No Smoke Exposure, No Dyspnea Gastrointestinal : No Nausea, No Vomiting, No Diarrhea, No Constipation, No abdominal Pain, No Hematochezia, No Melena Genitourinary : no irregular bleeding, No Dysuria, No Urinary Frequency, No Hematuria, No Urinary Incontinence, No Urgency, No Flank Pain, No Urinary Flow Changes, No Hesitancy Musculoskeletal : No joint pain, No Myalgias, No Joint Swelling Skin : No Skin Lesions, No rash Neuro : No Weakness, No Numbness, No Paresthesias, No Loss of Consciousness, no headache, complaining of dizziness described as the room spinning with head movements Psych : No Anxiety/Panic, No Depression, No SI/HI/AH/VH, No Social Issues, Heme/Lymph: No Bruising, No Bleeding,No Lymphadenopathy Endocrine : No Polyuria, No Polydipsia, No Temperature Intolerance [facility] Past Medical History 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 Oriented X3. No acute distress. Eyes: Pupils equal, round and reactive to light. no nystagmus ENT: Pharynx normal. Neck: Normal inspection. Neck supple. No lymph nodes noted. No crepitus CVS: Normal heart rate and rhythm. Pulses normal. Normal S1 and S2 Respiratory: No respiratory distress. Breath sounds normal. No Wheezing. No rales Abdomen: Soft and nontender. No rigidity. No distention. Skin: Skin warm and dry. Normal skin color. Normal skin turgor. Extremities: No lower extremity edema. No Lacerations. No Rash Neuro: Oriented X 3. No motor deficit. No sensory deficit. Moving all extremities. No slurred speech. CN 2 through 12 grossly intact Psych: calm, cooperative, a bit anxious Vital Signs: Vital Signs: Last Vital Signs Temp 98.3 F 09/22/25 06:08 Pulse 106 H 09/22/25 08:00 Resp 16 09/22/25 08:00 BP 145/87 H 09/22/25 08:00 Pulse Ox 96 09/22/25 08:00 O2 Del Method Room Air 09/22/25 08:00 BMI result Body Mass Index 33.8 Course Course Course Narrative: patient complaining of dizziness, described as everything spinning. Patient will be receiving p.o. meclizine, EKG pending patient states that today she did not sustain any falls. Reevaluation(s) Reevaluation #1: I received sign-out on this patient from my colleague Dr. Briscoe who was awaiting CMP results and discharge for encounter for medication refill for vertigo. In summary, this is an 79-year-old female with medical history of HTN, SVT, dementia, anxiety, presents to the ED due to 1 day of increased dizziness where she feels as if everything is spinning around her. Patient has history of vertigo, states she has been out of her medication for vertigo. Denies headache, visual changes, chest pain, shortness of breath. Patient was given a dose of meclizine and symptoms have improved. Labs without leukocytosis, no evidence of anemia, no electrolyte abnormalities. Patient states she is feeling improved, with resolution of dizziness after dose of meclizine. Patient is requesting pain medication for left tibial apophyseal fracture that occured 4 weeks ago on 08/22/25. The L knee is without erythema, warmth, or edema. Patient has had narcotic medication for pain management. There is no indication to continue narcotic pain medication. I counseled patient to use Tylenol, ice, compression, and elevation for pain management. Patient will be discharged with meclizine so that she can manage her vertigo at home. I counseled the patient to follow up with her primary care doctor. Patient is anxious for discharge, patient is in agreement with the plan. Time: 07:50 Medications Administered Discontinued Medications Generic Name Dose Route Start Last Admin Trade Name Beau PRN Reason Stop Dose Admin Meclizine HCl 50 mg 09/22/25 06:52 09/22/25 07:35 Meclizine Hcl 25 Mg Tablet PO 09/22/25 06:53 50 mg ONCE ONE Administration Medical Decision Making Medical Decision Making [facility] Narrative: my interpretation of EKG: Sinus tachycardia, heart rate 114, no ST segment depression or elevation, no T-wave inversion, QTC 460 my interpretation of labs: No significant abnormality in patient's hematology patient feeling better after a dose of meclizine. all of patient's labs and chemistry pending. Patient has history of hyponatremia. Sign-out given to my colleague SARA Farrell Differential Diagnosis Differential Diagnoses: The differential diagnosis associated with the presentation includes ( Anxiety, BPPV) Lab Data [facility] Lab Attestation statement: I reviewed the patient's lab results. 09/22/25 07:21 09/22/25 07:21 Labs: Lab Results 09/22/25 Range/Units 07:21 WBC 6.6 (4.8-10.8) X10*3/uL RBC 4.39 (4.20-5.50) X10*6/uL Hgb 12.2 (12.0-16.0) g/dl Hct 37.3 (37.0-47.0) % MCV 85.0 (80.0-98.0) fL MCH 27.8 (27.0-33.0) pg MCHC 32.7 (31.0-35.0) g/dl RDW 13.8 (11.0-16.0) % Plt Count 295 (160-400) X10*3/uL MPV 8.1 L (9.4-12.3) fL Immature Gran % (Auto) 0.5 H (0.0-0.4) % Neut % (Auto) 70.6 (45-73) % Lymph % (Auto) 18.3 L (20-40) % Marion % (Auto) 9.4 (2-11) % Eos % (Auto) 0.6 (0-4) % Baso % (Auto) 0.6 (0-2) % Lymph # (Auto) 1.2 (1.2-4.9) X10*3/uL Marion # (Auto) 0.6 (0.1-1.2) X10*3/uL Eos # (Auto) 0.0 (0.0-0.4) X10*3/uL Baso # (Auto) 0.0 (0.0-0.2) X10*3/uL Abs Immat Gran (auto) 0.03 (0.00-0.03) X10*3/uL Absolute Neuts (auto) 4.7 (2.0-8.3) x10*3/uL Absolute Nucleated RBC 0.000 (0.0-0.012) X10*3/uL Nucleated RBC % (auto) 0.0 (0.0-0.2) /100WBC Sodium 137 (135-145) mmol/L Potassium 4.7 (3.3-5.1) mmol/L Chloride 100 (96-108) mmol/L Carbon Dioxide 29 (22-29) mmol/L Anion Gap 13 (12-20) BUN 18 H (9-16) mg/dL Creatinine 0.85 (0.5-1.4) mg/dL Estim Creat Clear Calc 56.1 Estimated GFR > 60 Random Glucose 105 (60-115) mg/dL Calcium 10.0 D (8.4-10.2) mg/dL Independent Interpretation I performed an independent interpretation of an: EKG Discharge Plan Discharge Clinical Impression: Vertigo Patient Disposition: Home, Self-Care Instructions: Vertigo (ED) Additional Instructions: Please follow-up with your primary care physician tomorrow. If you have any worsening or new symptoms, please return to the emergency room or call 911 Prescriptions: New meclizine 25 mg tablet 25 mg PO BID PRN (Reason: dizziness) Qty: 14 0RF No Action metoprolol succinate 50 mg tablet extended release 24 hr 50 mg PO DAILY Qty: 90 2RF omeprazole 20 mg Tablet,Delayed Release (Dr/Ec) 20 mg PO DAILY@0630 meclizine 12.5 mg tablet 12.5 mg PO TID PRN (Reason: dizziness or vertigo) Qty: 30 0RF trazodone 50 mg tablet 50 mg PO BEDTIME ferrous sulfate [FeroSul] 325 mg (65 mg iron) tablet 325 mg PO DAILY bisacodyl 5 mg tablet,delayed release (DR/EC) 5 mg PO DAILY PRN (Reason: constipation) rosuvastatin 20 mg tablet 20 mg PO BEDTIME aspirin 81 mg tablet,delayed release (DR/EC) 81 mg PO QAM multivitamin Tablet 1 tab PO QAM melatonin 10 mg tablet extended release 10 mg PO BEDTIME PRN (Reason: Insomnia) cholecalciferol (vitamin D3) 25 mcg (1,000 unit) tablet 25 mcg PO DAILY acetaminophen 500 mg tablet 500 mg PO Q8H PRN (Reason: pain) docusate sodium [Colace] 100 mg capsule 200 mg PO BID Qty: 20 0RF ibuprofen 200 mg tablet 200 mg PO Q6H PRN (Reason: pain) Qty: 20 0RF ketotifen fumarate 0.025 % (0.035 %) drops 1 drp ophthalmic (eye) BID PRN (Reason: allergies) mirtazapine 45 mg tablet 45 mg PO BEDTIME clonazepam 0.5 mg tablet 0.5 mg PO TID hydroxyzine HCl 25 mg tablet 10 mg PO DAILY PRN (Reason: anxiety) fluticasone propionate [Flonase Allergy Relief] 50 mcg/actuation spray,suspension 2 spray intranasal DAILY PRN (Reason: Allergic Symptoms) Rx Instructions: administer into each nostril apixaban 5 mg tablet 5 mg PO BID valsartan 160 mg tablet 160 mg PO QPM sertraline 100 mg tablet 100 mg PO DAILY amlodipine 10 mg tablet 10 mg PO DAILY Print Language: Danish
--- NOTE | 2025-09-22 06:57 | ECG_ITS ---
Test Reason : dizziness Blood Pressure : */* mmHG Vent. Rate : 114 BPM Atrial Rate : 114 BPM P-R Int : 196 ms QRS Dur : 100 ms QT Int : 334 ms P-R-T Axes : 24 -36 33 degrees QTcB Int : 460 ms Sinus tachycardia Left axis deviation Moderate voltage criteria for LVH, may be normal variant ( R in aVL , [place] product ) Abnormal ECG When compared with ECG of 19-Sep-2025 00:12, No significant change was found Referred By: Marta Briscoe Electronically Signed By: KATRINA PARSONS MD
[2025-09-22 07:25] LABS: Hematocrit 37.3 % (37.0-47.0); Hemoglobin 12.2 g/dl (12.0-16.0); Imm Gran Abs Auto 0.03 X10*3/uL (0.00-0.03); Imm Gran Pct Auto 0.5 % (0.0-0.4); Lymphocytes Absolute Auto 1.2 X10*3/uL (1.2-4.9); MANUAL DIFF FLAG NO; Mean Corpuscular HGB Conc 32.7 g/dl (31.0-35.0); Mean Corpuscular Hemoglobin 27.8 pg (27.0-33.0); Mean Corpuscular Volume 85.0 fL (80.0-98.0); NRBC Abs Auto 0.000 X10*3/uL (0.0-0.012); NRBC Pct Auto 0.0 /100WBC (0.0-0.2); Platelet Count 295 X10*3/uL (160-400); Red Blood Count 4.39 X10*6/uL (4.20-5.50); White Blood Count 6.6 X10*3/uL (4.8-10.8)
[2025-09-22 07:54] LABS: Anion Gap 13 (12-20); Blood Urea Nitrogen 18 mg/dL (9-16); Calcium 10.0 mg/dL (8.4-10.2); Carbon Dioxide 29 mmol/L (22-29); Chloride 100 mmol/L (96-108); Creatinine Clr Calc Pharmacy 56.1; Estimated Glomerular Filt Rate > 60; Potassium 4.7 mmol/L (3.3-5.1); Sodium 137 mmol/L (135-145)
[2025-09-22 08:00] VITALS: BP 145/87; PULSE 106; RESP 16; O2SAT 96
[2025-09-22 08:40] VITALS: BP 145/87; PULSE 106; RESP 16; TEMP 36.9; O2SAT 96
== END 2025-09-22 08:48 | disposition home or self-care (01) ==
PROVIDERS: Emergency Provider Emergency Medicine
DX: R42 Dizziness and giddiness (principal); Z79.899 Other long term (current) drug therapy
CPT/HCPCS: 36415; 80048; 85025; 93005; 99285

== ENCOUNTER → 2025-09-22 06:57 | Outpatient (BNV) | payer OTHER, SELFPAY | PROVIDERS: Emergency Provider Emergency Medicine; Visit Provider Internal Medicine Cardiovascular Disease | DX: R00.0 Tachycardia, unspecified (principal); I42.2 Other hypertrophic cardiomyopathy | CPT/HCPCS: 93010 ==

== ENCOUNTER 2025-10-03 22:39 | Emergency (ER) | payer OTHER, SELFPAY ==
--- OUTSIDE RECORDS SUMMARY | 2025-09-29 08:40 | XMS_ITS | Encounter Summary ---
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 Name Role Phone Name, Nitin PIKE Primary Care Provider [phone] Encounter Details Date Type Department Care Team ([facility] st Contact Info) Description 09/29/2025 8:40 AM EST Office Visit [facility] [address], [place] [id number] Zach Javier MD [address] [place] [address] [phone] Acute right-sided low back pain without sciatica (Primary Dx); Vertigo Social History Tobacco Use Types Packs/Day Years [...] Sign Reading Time Taken Comments Blood Pressure 116/79 09/29/2025 8:49 AM EST Pulse 111 09/29/2025 8:49 AM EST Temperature 36.8 C (98.3 F) 09/29/2025 8:49 AM EST Respiratory Rate 20 09/29/2025 8:49 AM EST Oxygen Saturation 96% 09/29/2025 8:49 AM EST Inhaled Oxygen Concentration - - Weight 84.9 kg (187 lb 4 oz) 09/29/2025 8:49 AM EST Height 163.8 cm (5' 4.5 ) 09/29/2025 8:49 AM EST Body Mass Index 31.65 09/29/2025 8:49 AM EST documented in this encounter Progress Notes * Zach Javier MD - 09/29/2025 8:40 AM EST Subjective History was provided by the patient. Noreen Wing is a 80 y.o. female who presents for evaluation of right-sided low back pain. Has a moderate-size, low back ecchymosis from a recent fall. No LOC or MS change. Frequent ER visits. Documented as a mechanical fall, but states she fell due to her dizziness. Previously diagnosed with vertigo. Has intermittent symptoms, typically alleviated with Meclizine. Denies daily use of this Rx. Recently evaluated [place] [facility] on 09/22/2025 due to dizziness. Known history of intermittent vertigo.Symptoms improved with Meclizine in the ER. Dicharged home with Rx (but states she was unaware the Rx was sent to her pharmacy). WBC and electrolytes were within normal. Also seen at [facility] 09/19/2025 after a fall (described as mechanical). Hit the right side of her head. Had negative Head CT and C-spine CT. Not currently anticoagulated. Recent INR was 1.0 (09/19/2025). Currently using Acetaminophen for pain control, but states no complete alleviation of her back pain. Objective Vitals: 09/29/25 0849 BP: 116/79 BP Location: Right arm Patient Position: Sitting BP Cuff Size: Large adult Pulse: (!) 111 Resp: 20 Temp: 98.3 ??F (36.8 ??C) TempSrc: Oral SpO2: 96% Weight: 187 lb 4 oz (84.9 kg) Height: 5' 4.5 (1.638 m) Physical Exam Constitutional: General: She is not in acute distress. Appearance: Normal appearance. She is not ill-appearing, toxic-appearing or diaphoretic. HENT: Head: Normocephalic and atraumatic. Right Ear: External ear normal. Left Ear: External ear normal. Mouth/Throat: Mouth: Mucous membranes are dry. Pharynx: Oropharynx is clear. Eyes: Extraocular Movements: Extraocular movements intact. Conjunctiva/sclera: Conjunctivae normal. Comments: No nystagmus Cardiovascular: Rate and Rhythm: Normal rate and regular rhythm. Heart sounds: Normal heart sounds. Pulmonary: Effort: Pulmonary effort is normal. No respiratory distress. Breath sounds: No wheezing, rhonchi or rales. Chest: Chest wall: No tenderness. Musculoskeletal: General: Normal range of motion. Cervical back: Neck supple. Comments: Right, latera lower lumbar area (external oblique) with 8cm x 4cm ecchymosis with underlying hypertonicity/hypertrophy of the musculature Skin: General: Skin is warm and dry. Neurological: General: No focal deficit present. Mental Status: She is alert and oriented to person, place, and time. Cranial Nerves: No cranial nerve deficit. Sensory: No sensory deficit. Motor: No weakness. Coordination: Coordination normal. Comments: Ambulates with a walker Psychiatric: Mood and Affect: Mood normal. Behavior: Behavior normal. Diagnoses and all orders for this visit: Acute right-sided low back pain without sciatica (Primary) - Diclofenac Sodium 1 % gel; Apply 1 Application topically if needed in the morning, at noon, in the evening, and at bedtime (pain) for up to 7 days. Vertigo - meclizine (Antivert) 25 MG tablet; Take 1 tablet (25 mg) by mouth if needed in the morning, at noon, and at bedtime for dizziness for up to 10 days. Patient presents to [facility] due to right-sided, lateral low back pain since her fall 10 days ago Now with hypertonic/hypertrophic musculature with overlying ecchymosis No mid-line back pain No radicular or impingement symptoms No LOC or MS change Reports recent development of vertigo Rx Meclizine for prn use (advised to avoid chronic use as it can precipitate rebound symptoms) Ample hydration recommended Recommended ice pack prn Given her age, advised to change PO NSAIDs to topical Diclofenac Potential adverse effects of the medications reviewed Advised to contact the clinic if persistent or worsening symptoms documented in this encounter Plan of Treatment Upcoming Encounters Date Type Department Care Team (Late st Contact Info) Description 11/07/2025 10:00 AM EST Office Visit [facility] [address] [place] [address] Name, MD Nitin [address] [place] [address] documented as of this encounter Visit Diagnoses Diagnosis Acute right-sided low back pain without sciatica- Primary Vertigo Dizziness and giddiness documented in this encounter Additional Health Concerns Assessment Noted Time PHQ-9 Depression Total Score: 3 04/29/20 25 9:41 AM EDT documented as of this encounter Care Teams Jewelry Store Manager Relationship Specialty Start Date End Date Name, MD Nitin [address] [place] [id number] PCP - General Family Medicine 08/26/17 [facility] 09/01/24 documented as of this encounter
[2025-10-03 22:41] VITALS: BP 119/70; BP 157/79; PULSE 88; PULSE 98; RESP 16; TEMP 37; O2SAT 96; O2SAT 97; BMI 37.9
--- NOTE | 2025-10-03 23:20 | PC.NURSE ---
pt biba from home, a&ox4, respirations even and unlabored. pt reports increased left leg pain, reports taking tylenol without relief. pt also states she has not been taking blood pressure medications and reports her blood pressure is high. pt also states she has been having urinary frequency but denies pain and blood in urine. urine sample obtained
[2025-10-03 23:24] LABS: Appearance Urine Clear; Glucose Urine UA Negative (Negative); PH 6.0 (5.0-9.0); Specific Gravity - Urine 1.015 (1.005-1.025); UMIC TRIGGER UACC YES
[2025-10-03 23:26] LABS: UACC Culture Trigger YES
--- NOTE | 2025-10-03 23:32 | ED.EXTPRO ---
HPI - Extremity Problem General Chief complaint: Extremity Problem Stated complaint: Worried about blood pressure, did not take bp meds Time Seen by Provider: 10/03/25 22:45 Source: patient Mode of arrival: ambulatory Limitations: no limitations History of Present Illness ED Provider: Dr. Marta Briscoe HPI Narrative: Patient comes to the emergency room stating that she is concerned that her blood pressure is high because she did not take her medication today. Patient denies headache, blurred vision. Patient was brought in by EMS. On arrival, patient started complaining of chronic knee pain. Denies any recent falls or any other trauma. Also, requesting medication for anxiety, states that she is due for her medication refills tomorrow morning. Related Data Home Medications ?Medication ?Instructions ?Recorded ?Confirmed omeprazole 20 mg tablet,delayed 20 mg PO DAILY@0630 08/09/20 08/22/25 release aspirin 81 mg tablet,delayed 81 mg PO QAM 01/28/24 08/22/25 release bisacodyl 5 mg tablet,delayed 5 mg PO DAILY PRN constipation 01/28/24 08/22/25 release ferrous sulfate 325 mg (65 mg 325 mg PO DAILY 01/28/24 08/22/25 iron) tablet (FeroSul) melatonin 10 mg tablet,extended 10 mg PO BEDTIME PRN Insomnia 01/28/24 08/22/25 release multivitamin 1 tab PO QAM 01/28/24 08/22/25 rosuvastatin 20 mg tablet 20 mg PO BEDTIME 01/28/24 08/22/25 trazodone 50 mg tablet 50 mg PO BEDTIME 01/28/24 08/22/25 amlodipine 10 mg tablet 10 mg PO DAILY 02/09/24 08/22/25 acetaminophen 500 mg tablet 500 mg PO Q8H PRN pain 08/09/24 08/22/25 cholecalciferol (vitamin D3) 25 25 mcg PO DAILY 08/20/24 08/22/25 mcg (1,000 unit) tablet sertraline 100 mg tablet 100 mg PO DAILY 03/16/25 08/22/25 apixaban 5 mg tablet 5 mg PO BID 08/22/25 08/22/25 clonazepam 0.5 mg tablet 0.5 mg PO TID 08/22/25 08/22/25 fluticasone propionate 50 2 spray intranasal DAILY PRN 08/22/25 08/22/25 mcg/actuation nasal Allergic Symptoms spray,suspension (Flonase Allergy Relief) hydroxyzine HCl 25 mg tablet 10 mg PO DAILY PRN anxiety 08/22/25 08/22/25 ketotifen fumarate 0.025 % (0.035 1 drp ophthalmic (eye) BID PRN 08/22/25 08/22/25 %) eye drops allergies mirtazapine 45 mg tablet 45 mg PO BEDTIME 08/22/25 08/22/25 valsartan 160 mg tablet 160 mg PO QPM 08/22/25 08/22/25 Previous Rx's ?Medication ?Instructions ?Recorded metoprolol succinate 50 mg 50 mg PO DAILY #90 tabs 09/28/20 tablet,extended release 24 hr docusate sodium 100 mg capsule 200 mg (2 x 100 mg) PO BID #20 caps 02/24/25 (Colace) ibuprofen 200 mg tablet 200 mg PO Q6H PRN pain #20 tabs 07/24/25 meclizine 12.5 mg tablet 12.5 mg PO TID PRN dizziness or 07/26/25 vertigo #30 tabs meclizine 25 mg tablet 25 mg PO BID PRN dizziness #14 tabs 09/22/25 Allergies Allergy/AdvReac Type Severity Reaction Status Date / Time penicillin G (Penicillin G) Allergy Severe ITCHY/RASH Verified 10/03/25 22:48 Sulfa (Sulfonamide Allergy Severe ITCHY,RASH, Verified 10/03/25 22:48 Antibiotics) (Sulfa rash (Sulfonamides)) trimethoprim (From Bactrim) Allergy Severe HIVES Verified 10/03/25 22:48 Penicillins Allergy Intermediate Hives Verified 10/03/25 22:48 sulfamethoxazole (From Allergy Mild Hives Verified 10/03/25 22:48 Bactrim) Review of Systems Review of Systems: Constitutional : No Weight loss, No Fever, No Chills, No Night Sweats, No Fatigue, No Malaise ENT/Mouth : No Hearing loss, No Ear Pain, No Nasal Congestion, No Sinus Pain, No Hoarseness, No sore throat, No Rhinorrhea, No Swallowing Difficulty Eyes: No Eye Pain, No Swelling, No Redness, No Foreign Body, No Discharge, No Vision Changes Cardiovascular : No Chest Pain, No SOB, No Dyspnea on Exertion, No Orthopnea, No Edema, No Palpitations Respiratory : No Cough, No Sputum, No Wheezing, No Smoke Exposure, No Dyspnea Gastrointestinal : No Nausea, No Vomiting, No Diarrhea, No Constipation, No abdominal Pain, No Hematochezia, No Melena Genitourinary : no irregular bleeding, No Dysuria, No Urinary Frequency, No Hematuria, No Urinary Incontinence, No Urgency, No Flank Pain, No Urinary Flow Changes, No Hesitancy Musculoskeletal : complaining of left chronic knee pain No Myalgias, No Joint Swelling Skin : No Skin Lesions, No rash Neuro : No Weakness, No Numbness, No Paresthesias, No Loss of Consciousness, No Dizziness, No Headache Psych : Complaining of anxiety,No Depression, No SI/HI/AH/VH, No Social Issues, Heme/Lymph: No Bruising, No Bleeding,No Lymphadenopathy Endocrine : No Polyuria, No Polydipsia, No Temperature Intolerance PMFSH Past Medical History 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 or 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 (fixture 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 Oriented X3. No acute distress. Eyes: Pupils equal, round and reactive to light. ENT: Pharynx normal. Neck: Normal inspection. Neck supple. No lymph nodes noted. No crepitus CVS: Normal heart rate and rhythm. Pulses normal. Normal S1 and S2 Respiratory: No respiratory distress. Breath sounds normal. No Wheezing. No rales Abdomen: Soft and nontender. No rigidity. No distention. Skin: Skin warm and dry. Normal skin color. Normal skin turgor. Extremities: No lower extremity edema. No Lacerations. No Rash patient is able to flex and extend both knees, no abuse hematoma contusion or effusion Neuro: Oriented X 3. No motor deficit. No sensory deficit. Moving all extremities. No slurred speech. CN 2 through 12 grossly intact Psych: calm, cooperative, normal affect Vital Signs: Vital Signs: Last Vital Signs Temp 98.6 F 10/03/25 22:41 Pulse 98 10/03/25 22:41 Resp 16 10/03/25 22:41 BP 119/70 10/03/25 22:41 Pulse Ox 96 10/03/25 22:41 O2 Del Method Room Air 10/03/25 22:41 BMI result Body Mass Index 37.9 Medications Administered Discontinued Medications Generic Name Dose Route Start Last Admin Trade Name Freq PRN Reason Stop Dose Admin Hydroxyzine HCl 50 mg 10/03/25 23:29 10/03/25 23:45 Hydroxyzine Hcl 50 Mg Tablet PO 10/03/25 23:30 50 mg ONCE ONE Administration Medical Decision Making Medical Decision Making [facility] Narrative: patient was given hydroxyzine p.o urinalysis is negative for UTI . Patient usually has leukocyte esterase and WBCs in the urine with no bacterial growth reported in patient's microbiology report I discussed with the patient that if she is struggling with urinary frequency incontinence, she may be having a reactive bladder. Patient instructed to follow-up with the primary care physician, patient may need a referral. Lab Data [facility] Lab Attestation statement: I reviewed the patient's lab results. Labs: Lab Results 10/03/25 Range/Units 23:18 Urine Color Yellow Urine Appearance Clear Urine pH 6.0 (5.0-9.0) Ur Specific [place] 1.015 (1.005-1.025) Urine Protein Negative (Neg-Trace) mg/dL Urine Glucose (UA) Negative (Negative) mg/dL Urine Ketones Negative (Negative) mg/dL Urine Blood Negative (Negative) Urine Nitrite Negative (Negative) Ur Leukocyte Esterase Moderate (2+) H (Negative) Urine RBC 0-2 (0-2) /HPF Urine WBC 11-20 H (0-5) /HPF Ur Squamous Epith Cells 0-2 (0-2) /HPF Urine Bacteria None Seen (None Seen) Hyaline Casts 0-2 (0-2) /LPF Discharge Plan Discharge Clinical Impression: Generalized anxiety disorder with panic attacks, Frequent urinary incontinence Prescriptions: No Action metoprolol succinate 50 mg tablet extended release 24 hr 50 mg PO DAILY Qty: 90 2RF omeprazole 20 mg Tablet,Delayed Release (Dr/Ec) 20 mg PO DAILY@0630 meclizine 12.5 mg tablet 12.5 mg PO TID PRN (Reason: dizziness or vertigo) Qty: 30 0RF trazodone 50 mg tablet 50 mg PO BEDTIME ferrous sulfate [FeroSul] 325 mg (65 mg iron) tablet 325 mg PO DAILY bisacodyl 5 mg tablet,delayed release (DR/EC) 5 mg PO DAILY PRN (Reason: constipation) rosuvastatin 20 mg tablet 20 mg PO BEDTIME aspirin 81 mg tablet,delayed release (DR/EC) 81 mg PO QAM multivitamin Tablet 1 tab PO QAM melatonin 10 mg tablet extended release 10 mg PO BEDTIME PRN (Reason: Insomnia) cholecalciferol (vitamin D3) 25 mcg (1,000 unit) tablet 25 mcg PO DAILY acetaminophen 500 mg tablet 500 mg PO Q8H PRN (Reason: pain) docusate sodium [Colace] 100 mg capsule 200 mg PO BID Qty: 20 0RF ibuprofen 200 mg tablet 200 mg PO Q6H PRN (Reason: pain) Qty: 20 0RF ketotifen fumarate 0.025 % (0.035 %) drops 1 drp ophthalmic (eye) BID PRN (Reason: allergies) mirtazapine 45 mg tablet 45 mg PO BEDTIME clonazepam 0.5 mg tablet 0.5 mg PO TID hydroxyzine HCl 25 mg tablet 10 mg PO DAILY PRN (Reason: anxiety) fluticasone propionate [Flonase Allergy Relief] 50 mcg/actuation spray,suspension 2 spray intranasal DAILY PRN (Reason: Allergic Symptoms) Rx Instructions: administer into each nostril apixaban 5 mg tablet 5 mg PO BID valsartan 160 mg tablet 160 mg PO QPM meclizine 25 mg tablet 25 mg PO BID PRN (Reason: dizziness) Qty: 14 0RF sertraline 100 mg tablet 100 mg PO DAILY amlodipine 10 mg tablet 10 mg PO DAILY Print Language: Swiss
--- OUTSIDE RECORDS SUMMARY | 2025-10-03 23:44 | XMS_ITS | Encounter Summary ---
Author Organization [employer] Address [address] [facility] [address] [place] [address] Care Team Providers Care Nuclear Power Plant Engineer Name Role Phone Name, Nitin PIKE Primary Care Provider [phone] Reason for Visit * Reason Comments Med Refill Encounter Details Date Type Department Care Team ([facility] st Contact Info) Description 06/28/2024 Refill [facility] [address] [place], [place] [phone] Mel Anguiano FNP [address] [place] [address] Social History Tobacco Use Types Packs/Day Years [...] 11/07/2025 10:00 AM EST Office Visit [facility] [address] [place] [address] Name, MD Nitin [address] [place] [address] documented as of this encounter Visit Diagnoses Not on filedocumented in this encounter Additional Health Concerns Assessment Noted Time PHQ-9 Depression Total Score: 6 02/13/20 24 9:14 AM EDT documented as of this encounter Care Teams Nuclear Power Plant Engineer Relationship Specialty Start Date End Date Name, MD Nitin [address] [place] [address] PCP - General Family Medicine 08/26/17 [facility] 09/01/24 documented as of this encounter
--- OUTSIDE RECORDS SUMMARY | 2025-10-03 23:44 | XMS_ITS | Encounter Summary ---
Author Organization [employer] Address [address] [facility] [address] [place] [address] Care Team Providers Care Gas Golf Cart Repairer Name Role Phone Name, Nitin PIKE Primary Care Provider [phone] Encounter Details Date Type Department Care Team ([facility] st Contact Info) Description 05/26/2023 Orders Only [facility] [address] [place] [address] Noreen Fox MD [address] [place] [address] Social History Tobacco Use Types Packs/Day Years [...] 11/07/2025 10:00 AM EST Office Visit [facility] [address] [place] [address] Name, MD Nitin [address] [place] [address] documented as of this encounter Visit Diagnoses Not on filedocumented in this encounter Care Teams Gas Golf Cart Repairer Relationship Specialty Start Date End Date Name, MD Nitin [address] [place] [address] PCP - General Family Medicine 08/26/17 [facility] 09/01/24 documented as of this encounter
--- OUTSIDE RECORDS SUMMARY | 2025-10-03 23:44 | XMS_ITS | Encounter Summary ---
Author Organization [employer] Address [address] [facility] [address] [place] [address] Care Team Providers Care Elevator Serviceman Name Role Phone Name, Nitin PIKE Primary Care Provider [phone] Reason for Visit * Reason Comments Med Refill Encounter Details Date Type Department Care Team (Late st Contact Info) Description 04/20/2025 Refill [facility] [address] [place] [address] Zechariah Cheung MD [address] [place] [address] Allergic rhinitis, unspecified seasonality, unspecified trigger Social [...] Visit [facility] [address] [place] [address] NameNitin MD [address] [place] [address] documented as of this encounter Visit Diagnoses Diagnosis Allergic rhinitis, unspecified seasonality, unspecified trigger documented in this encounter Additional Health Concerns Assessment Noted Time PHQ-9 Depression Total Score: 6 02/13/20 9:14 AM EDT documented as of this encounter Care Teams Elevator Serviceman Relationship Specialty Start Date End Date Nitin Echevarria MD [address] [place] [address] PCP - General Family Medicine 08/26/17 [facility] 09/01/24 documented as of this encounter
--- OUTSIDE RECORDS SUMMARY | 2025-10-03 23:44 | XMS_ITS | Data Portability ---
Author Organization [employer] [facility] Address [address] [place] [address] Care Team Providers Care Hand Ii Blocker Name Role Phone HIM CCA Primary Care [...] Recorded Respiratory rate Body temperature Oxygen saturation Heart rate Systolic And Diastolic Provider Name and Address Organization Details Last Updated DateTime 4 16 /min 96 [degF] 96 % 89 /min 120/70 mm[Hg] Not Available [employer] [facility] 4 18:59:08 Date Recorded Respiratory rate Heart rate Body weight Oxygen saturation Body temperature Systolic And Diastolic Provider Name and Address Organization Details Last Updated DateTime 4 18 /min 74 /min 98696.9 28 g 98 % 100 [degF] 130/66 mm[Hg] Not Available [employer] 15:33:18 Social History None recorded. Functional Status None recorded. Mental Status None recorded. Family History Nothing Reported. Medical History No medical history recorded. Gynecological HistoryNo gynecological history recorded. Obstetrics History GPAL:G 0 P 0 0 0 0 Past Encounters Encounter ID Performer Location Encounter Start Date Encounter Closed Date Diagnosis/Indication Diagnosis SNOMED-CT Code Diagnosis ICD10 Code Diagnosis IMO Codes Diagnosis Note [id number] Epifanio Mcintyre MD 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 She called today because she insists on having the catheter removed. It was removed by the plastics plater with the understand ing that if she can't void, she will need to go the the ER. The patient agreed with this plan. [id number] Rohit Benton MD [facility] - [address] [address] 02/06/2024 15:33:16 02/09/2024 18:20:42 Chronic retention of urine [id number] R33.8 Has bunn catheter which was recently placed. Due to see Urology on 4/1. No s/s of current infection or malfunctio [...] [place] Member ID Guarantor Name 02/09/2024 1 [facility] - DOS ON OR AFTER 2023 - DUAL ELIGIBLE - PRISON OPTIONS AND ONE CARE (MEDICARE REPLACEMENT/ADV ANTAGE - HMO) Noreen Wing [id number] Noreen Wing Notes Date Note Type Note Provider Name and Address Organization Details Recorded Time 01/31/2024 text/html ROS as noted in the HPI [facility] Nurse Triage Notes (Joana Dominique): Reason For Request: Bunn catheter malfunction/painful Chief Complaints: UTI/Pyelonephritis, Equipment-Related Allergies: No Known Comments: Ukrainian speaking member who denies any PMH, denies [...] KAYE Verified name//address Epifanio Mcintyre MD [address] [facility],[address], [place], [address], [address]walk 01/31/2024 19:05:57 02/06/2024 text/html ROS as noted in the HPI HPI: Member asked for HV tomorrow after 10 AM if possible. Treated at the [facility] today, for F/u leaking, stated is [...] son Jame Wing. Member is 78 y/o Ukrainian speaking female who [place] [address] [facility] with her son. Member has multiple ER [...] sees her BH counselor weekly and Prescriber DEALER RELATIONSHIP MANAGER [place] monthly if needed or every 2-3 months, .................... .................... .................... .................... .................... .................... .................... . [facility] Nurse Triage Notes (Zafar Irving): Comments: Reviewed HPI .................... .................... .................... .................... .................... .................... .................... . Handyman Note From [place]: Pt sts doesn [...] stable. Urine clear and light yellow. [facility] [place] and advised pt to rest and advised to make sure she goes to appt Friday. Pt son was used as support architect. Pt education on signs indicating the ER. Handyman Allergies: Clindamycin .................... .................... .................... .................... .................... .................... .................... . Disposition: Fulfilled Rohit Benton MD [address] [facility], [place], [address], [address]walk 02/06/2024 17:58:19 OBGyn Episode No OBEpisode recorded.
--- OUTSIDE RECORDS SUMMARY | 2025-10-03 23:44 | XMS_ITS | Clinical Summary ---
Author Organization [facility] Address [address] [place] [address] Phone Care Team Providers Care Chemical Milling Processor Name Role Phone Physician, No Pcp Primary [...] LAB CHEMISTRY METHOD 09/22/2024 3:15 AM EST [facility] Albumin 4.2 3.2 - 5.0 g/dL LAB CHEMISTRY METHOD 09/22/2024 3:15 AM EST [facility] Total Bilirubin 0.4 0.0 - 1.4 mg/dL LAB CHEMISTRY METHOD 09/22/2024 3:15 AM EST [facility] Blood Venous blood specimen / Unknown Venipuncture / Unknown 09/22/2024 2:28 AM EST 09/22/2024 2:31 AM EST Paul RUIZ LAB BLOOD ORDERABLES Final Resul t [facility] [address] [place] [address], from Last 3 Months or Most Recently Relevant to Health Maintenance Insurance [facility] MEDICARE Member Subscriber Plan / Payer (Ef fective 2021-Present) Name:Noreen Wing Relation to Subscriber:Self Name:Noreen Wing Payer ID:[id number] Group ID:[id number] Type:Not on file Address: [place] [address] [address] Care Teams Chemical Milling Processor Relationship Specialty Start Date End Date Physician, No Pcp PCP - General 09/22/24
--- OUTSIDE RECORDS SUMMARY | 2025-10-03 23:44 | XMS_ITS | Encounter Summary ---
Author Organization [employer] Address [address] [facility] [address] [place] [address] Care Team Providers Care Rush Seater Name Role Phone Name, Nitin PIKE Primary Care Provider [phone] Reason for Visit * Reason Onset Date Comments Hospital Follow-up 10/20/2024 Encounter Details Date Type Department Care Team ([facility] Contact Info) Description 10/20/2024 Telephone [facility] [address] [place], [place] [phone] Name, MD Nitin [address] [place] [address] Hospital Follow-up Social History Tobacco Use Types [...] from pt requesting a HDF appt. [place] [facility] [place] Date of admission: 10/17 Discharge date: 10/19 Diagnosed: High Blood Pressure and Fever Contact pt at [phone] *Send message to [place] Clinical Care Coordinators documented in this encounter Plan of Treatment Upcoming Encounters Date Type Department Care Team (Late st Contact Info) Description 11/07/2025 10:00 AM EST Office Visit [facility] [address] [place] [address] Name, MD Nitin [address] [place] [address] documented as of this encounter Visit Diagnoses Not on filedocumented in this encounter Additional Health Concerns Assessment Noted Time PHQ-9 Depression Total Score: 6 02/13/20 24 9:14 AM EDT documented as of this encounter Care Teams Rush Seater Relationship Specialty Start Date End Date Name, MD Nitin [address] [place] [address] PCP - General Family Medicine 08/26/17 [facility] 09/01/24 documented as of this encounter
--- OUTSIDE RECORDS SUMMARY | 2025-10-03 23:44 | XMS_ITS | Encounter Summary ---
Author Organization [employer] Address [address] [facility] [address] [place] [address] Care Team Providers Care Raw Material Planner Name Role Phone Name, Nitin PIKE Primary Care Provider [phone] Reason for Visit * Reason Comments Med Refill Encounter Details Date Type Department Care Team ([facility] st Contact Info) Description 04/01/2024 Refill [facility] [address] [place], [place] [phone] Name, MD Nitin [address] [place] [address] Rash Social History Tobacco Use Types Packs/Day [...] EST Office Visit [facility] [address] [place] [address] NameNitin MD [address] [place] [address] documented as of this encounter Visit Diagnoses Diagnosis Rash Rash and other nonspecific skin eruption documented in this encounter Additional Health Concerns Assessment Noted Time PHQ-9 Depression Total Score: 6 02/13/20 24 9:14 AM EDT documented as of this encounter Care Teams Raw Material Planner Relationship Specialty Start Date End Date NameNitin MD [address] [place] [address] PCP - General Family Medicine 08/26/17 [facility] 09/01/24 documented as of this encounter
--- OUTSIDE RECORDS SUMMARY | 2025-10-03 23:44 | XMS_ITS | Encounter Summary ---
Author Organization [employer] Address [address] [facility] [address] [place] [address] Care Team Providers Care Regional Transfer Liaison Name Role Phone Name, Nitin PIKE Primary Care Provider [phone] Reason for Visit * Reason Comments Med Refill Encounter Details Date Type Department Care Team (Late st Contact Info) Description 07/25/2025 Refill [facility] [address] [place], [place] [phone] Name, MD Nitin [address] [place] [address] Social History Tobacco Use Types Packs/Day Years [...] Description 11/07/2025 10:00 AM EST Office Visit [facility] [address] [place] [address] NameNitin MD [address] [place] [address] documented as of this encounter Visit Diagnoses Not on filedocumented in this encounter Additional Health Concerns Assessment Noted Time PHQ-9 Depression Total Score: 3 04/29/20 25 9:41 AM EDT documented as of this encounter Care Teams Regional Transfer Liaison Relationship Specialty Start Date End Date NameNitin MD [address] [place] [address] PCP - General Family Medicine 08/26/17 [facility] 09/01/24 documented as of this encounter
--- OUTSIDE RECORDS SUMMARY | 2025-10-03 23:44 | XMS_ITS | Encounter Summary ---
Author Organization [employer] Address [address] [facility] [address] [place] [address] Care Team Providers Care Chemist Name Role Phone Name, Nitin PIKE Primary Care Provider [phone] Reason for Visit * Reason Onset Date Comments Referral 08/24/2025 Encounter Details Date Type Department Care Team ([facility] st Contact Info) Description 08/24/2025 Telephone [facility] [address] [place], [place] [phone] Name, MD Nitin [address] [place] [address] Referral Social History Tobacco Use Types Packs/Day [...] Specialist: Physical therapy Facility Phone # : [phone] Fax #: [phone] documented in this encounter Plan of Treatment Upcoming Encounters Date Type Department Care Team (Late st Contact Info) Description 11/07/2025 10:00 AM EST Office Visit [facility] [address] [place], [place] [phone] Name, MD Nitin [address] [place] [address] documented as of this encounter Visit Diagnoses Not on filedocumented in this encounter Additional Health Concerns Assessment Noted Time PHQ-9 Depression Total Score: 3 04/29/20 9:41 AM EDT documented as of this encounter Care Teams Chemist Relationship Specialty Start Date End Date Name, MD Nitin [address] [place] [address] PCP - General Family Medicine 08/26/17 [facility] 09/01/24 documented as of this encounter
--- OUTSIDE RECORDS SUMMARY | 2025-10-03 23:44 | XMS_ITS | Encounter Summary ---
Author Organization [employer] Address [address] [facility] 7t [place] [address] Care Team Providers Care Flexographic Press Helper Name Role Phone Name, Nitin PIKE Primary Care Provider [phone] Encounter Details Date Type Department Care Team (Latest Contact Info) Description 09/29/2025 Travel Social History Tobacco Use Types Packs/Day [...] Description 11/07/2025 10:00 AM EST Office Visit [facility] [address] [place] [address] Name, MD Nitin [address] [place] [address] documented as of this encounter Visit Diagnoses Not on filedocumented in this encounter Additional Health Concerns Assessment Noted Time PHQ-9 Depression Total Score: 3 04/29/20 25 9:41 AM EDT documented as of this encounter Care Teams Flexographic Press Helper Relationship Specialty Start Date End Date NameNitin MD [address] [place] [address] PCP - General Family Medicine 08/26/17 [facility] 09/01/24 documented as of this encounter
--- OUTSIDE RECORDS SUMMARY | 2025-10-03 23:44 | XMS_ITS | Encounter Summary ---
Author Organization [employer] Address [address] [facility] [address] [place] [address] Care Team Providers Care Emergency Department Rn Name Role Phone Name, Nitin PIKE Primary Care Provider [phone] Reason for Visit * Reason Onset Date Comments ER Follow-up 05/31/2024 Encounter Details Date Type Department [facility] Description 05/31/2024 Telephone [facility] MED[facility]INE [address] [place], [place] [phone] Name, MD Nitin [address] [place] [address] ER Follow-up Social History Tobacco Use Types [...] to Pat ([facility]) [phone] for below message, no answer. LVM to call back on [phone]. * Telephone Encounter - Melany Santos RN - 05/31/2024 1:32 PM EDT DAVID T/C to pt. Through [employer] id - [id number] for below message, pt. Had recent fall and ED visit at [facility]. RN will request GRACE piedra from [facility]. Pt. Is doing good, states I am tired andsleeping. Pt. Dose not has any question or concern right now. Pt. Already has HDF apt. Schedule on 06/10/2024. Pt. Advised to give call to [facility] if any questions or concerns. Pt. Verbally agreed and understood. Please review and advise if needed. * Telephone Encounter - Adithya Solorzano - 05/31/2024 12:50 PM EDT Patient calling to report ED visit on : Date: 05/[address]: [facility] Seen for: Fall, Back Pain [...] [facility] MEDICINE [address] [place] [address] Name, MD Nitin [address] [place] [address] documented as of this encounter Visit Diagnoses Not on filedocumented in this encounter Additional Health Concerns Assessment Noted Time PHQ-9 Depression Total Score: 6 02/13/20 24 9:14 AM EDT documented as of this encounter Care Teams Emergency Department Rn Relationship Specialty Start Date End Date Name, MD Nitin [address] [place] [address] PCP - General Family Medicine 08/26/17 [facility] 09/01/24 documented as of this encounter
--- OUTSIDE RECORDS SUMMARY | 2025-10-03 23:44 | XMS_ITS | Encounter Summary ---
Author Organization [employer] Address [address] [facility] [address] [place] [address] Care Team Providers Care Wire Fence Erector Name Role Phone Name, Nitin PIKE Primary Care Provider [phone] Reason for Visit * Reason Onset Date Comments ER Follow-up 05/04/2024 Encounter Details Date Type Department Care Team ([facility] Contact Info) Description 05/04/2024 Telephone [facility] [address] [place], [place] [phone] Name, MD Nitin [address] [place] [address] ER Follow-up Social History Tobacco Use Types [...] 11:01 AM EDT T/C to pt. Through [employer] id - [id number] for below message, No answer. LVM to call back [phone] . * Telephone Encounter - Adithya Solorzano - 05/04/2024 9:35 AM EDT Noreen with [facility] calling to report ED visit on : Date: 04/28 Hospital: [facility] Seen for: UTI, Nausea, Rash. Noreen advised will be forwarding message to team nurses. Please contact pt at [phone]. documented in this encounter Plan of Treatment Upcoming Encounters Date Type Department Care Team (Late st Contact Info) Description 11/07/2025 10:00 AM EST Office Visit [facility] [address] [place] [address] Name, MD Nitin [address] [place] [address] documented as of this encounter Visit Diagnoses Not on filedocumented in this encounter Additional Health Concerns Assessment Noted Time PHQ-9 Depression Total Score: 6 02/13/20 9:14 AM EDT documented as of this encounter Care Teams Wire Fence Erector Relationship Specialty Start Date End Date Name, MD Nitin [address] [place] [address] PCP - General Family Medicine 08/26/17 [facility] 09/01/24 documented as of this encounter
--- OUTSIDE RECORDS SUMMARY | 2025-10-03 23:44 | XMS_ITS | Encounter Summary ---
Author Organization [employer] Address [address] [facility] [address] [place] [address] Care Team Providers Care Medical Instrument Technician Name Role Phone Name, Nitin PIKE Primary Care Provider [phone] Reason for Visit * Reason Comments Med Refill Encounter Details Date Type Department Care Team (Late st Contact Info) Description 08/17/[address] [facility]INE [address] [place], [place] [phone] Miryam Riley NP [address] [place] [address] Hypertension, unspecified type Social History Tobacco Use [...] 11/07/2025 10:00 AM EST Office Visit [facility] [address] [place] [address] NameNitin MD [address] [place] [address] documented as of this encounter Visit Diagnoses Diagnosis Hypertension, unspecified type documented in this encounter Additional Health Concerns Assessment Noted Time PHQ-9 Depression Total Score: 3 04/29/20 25 9:41 AM EDT documented as of this encounter Care Teams Medical Instrument Technician Relationship Specialty Start Date End Date Name, MD Nitin [address] [place] [address] PCP - General Family Medicine 08/26/17 [facility] 09/01/24 documented as of this encounter
--- OUTSIDE RECORDS SUMMARY | 2025-10-03 23:44 | XMS_ITS | Encounter Summary ---
Author Organization [employer] Address [address] [facility] 7[address] [place] [address] Care Team Providers Care Fresh Meat Grader Name Role Phone Name, Nitin PIKE Primary Care Provider [phone] Reason for Visit * Reason Onset Date Comments Med Refill 11/08/2024 Encounter Details Date Type Department Care Team ([facility] st Contact Info) Description 11/08/2024 Telephone [facility] MEDICINE [address] [place], [place] [phone] Name, MD Nitin [address] [place] [address] Med Refill Social History Tobacco Use Types [...] 5 MG tablet To be sent to: [facility] - [place], [place] - [address] [place] [facility] documented in this encounter Plan of Treatment Upcoming Encounters Date Type Department Care Team ([facility] st Contact Info) Description 11/07/2025 10:00 AM EST Office Visit [facility]INE [address] [place] [address] Name, MD Nitin [address] [place] [address] documented as of this encounter Visit Diagnoses Not on filedocumented in this encounter Additional Health Concerns Assessment Noted Time PHQ-9 Depression Total Score: 6 02/13/20 24 9:14 AM EDT documented as of this encounter Care Teams Fresh Meat Grader Relationship Specialty Start Date End Date Name, MD Nitin [address] [place] [address] PCP - General Family Medicine 08/26/17 [facility] 09/01/24 documented as of this encounter
--- OUTSIDE RECORDS SUMMARY | 2025-10-03 23:44 | XMS_ITS | Encounter Summary ---
Author Organization [employer] Address [address] [facility] [address] [place] [address] Care Team Providers Care Medicine Assistant Name Role Phone Name, Nitin PIKE Primary Care Provider [phone] Reason for Visit * Reason Comments Med Refill Encounter Details Date Type Department Care Team (Late st Contact Info) Description 09/28/2025 Refill [facility] & PEDS [address] [place], [place] [phone] Name, MD Nitin [address] [place] [address] Vitamin D deficiency Social History Tobacco Use [...] 10:00 AM EST Office Visit [facility] MEDICINE [address] [place] [address] Name, MD Nitin [address] [place] [address] documented as of this encounter Visit Diagnoses Diagnosis Vitamin D deficiency documented in this encounter Additional Health Concerns Assessment Noted Time PHQ-9 Depression Total Score: 3 04/29/20 25 9:41 AM EDT documented as of this encounter Care Teams Medicine Assistant Relationship Specialty Start Date End Date Name, MD Nitin [address] [place] [address] PCP - General Family Medicine 08/26/17 [facility] 09/01/24 documented as of this encounter
--- OUTSIDE RECORDS SUMMARY | 2025-10-03 23:45 | XMS_ITS | Encounter Summary ---
Author Organization [employer] Address [address] [facility] [address] [place] [address] Care Team Providers Care Open Hearth Melter Name Role Phone Name, Nitin PIKE Primary Care Provider [phone] Encounter Details Date Type Department Care Team ([facility] Contact Info) Description 01/06/2023 Orders Only [facility] MED & PEDS [address] [place], [place] [phone] Lisha Kelly LPN Social History Tobacco Use [...] [facility] [address] [place] [address] NameNitin MD [address] [place] [address] documented as of this encounter Visit Diagnoses Not on filedocumented in this encounter Care Teams Open Hearth Melter Relationship Specialty Start Date End Date NameNitin MD [address] [place] [address] PCP - General Family Medicine 08/26/17 [facility] 09/01/24 documented as of this encounter
--- OUTSIDE RECORDS SUMMARY | 2025-10-03 23:45 | XMS_ITS | Clinical Summary ---
Author Organization [employer] Address [address] [place] [address] [address] [place] [address] Care Team Providers Care Sample Card Maker Name Role Phone Name, Nitin PIKE Primary Care Provider [phone] Allergies Active Allergy Reactions Criticality Noted Date [...] CRUSH, DISSOLVE OR CHEW 30 tablet 3 09/27/20 25 1:36 PM EST 024 Active sertraline (Zoloft) 100 MG tablet Take 100 mg by mouth in the morning. 024 Active linaCLOtide (Linzess) 145 MCG capsuleIndication s:Chronic constipation Do not crush or chew.TAKE 1 CAPSULE BY MOUTH EVERY DAY BEFORE BREAKFAST, DO NOT BREAK, CRUSH, DISSOLVE OR CHEW 30 capsule 09/27/20 25 8:16 AM EST 025 Active meclizine (Antivert) 25 MG tabletIndications [...] MOUTH EVERY 8 HOURS NEEDED FOR PAIN (YORUBA LABEL) 90 tablet Active omeprazole (PriLOSEC) [address] capsuleIndication s:Heartburn TAKE 1 CAPSULE BY MOUTH EVERY MORNING 1 HOUR BEFORE BREAKFAST 90 capsule 1 Active rosuvastatin (Crestor) 20 MG tablet Take 1 tablet (20 mg) by mouth at bedtime. 90 tablet 3 Active Multiple Vitamin (Multivitamin) tablet Take 1 tablet by mouth in the morning. 90 tablet 3 Active docusate sodium (Colace) 100 MG capsule TAKE 2 CAPSULES BY MOUTH TWICE DAILY IN THE MORNING AND EVENING 120 capsule 3 09/27/20 25 8:16 AM EST Active naproxen (Naprosyn) 500 MG tabletIndications :Acute pain of left knee Take 1 tablet with food twice daily as needed for pain 14 tablet Active Ferrous Sulfate (iron) 325 (65 Fe) MG tablet TAKE 1 TABLET BY MOUTH EVERY MORNING WITH FOOD 30 tablet 09/27/20 25 8:16 AM EST Active polyethylene glycol, PEG, 3350 (GaviLAX) 17 GM/SCOOP powder MIX 17G (1 CAPFUL) IN 8 OUNCES OF WATER AND TAKE BY MOUTH TWICE A DAY 238 g 11 09/29/20 25 9:50 AM EST Active cholecalciferol (Vitamin D-3) 25 MCG tabletIndications :Vitamin D deficiency TAKE 1 TABLET BY MOUTH TWICE DAILY IN THE MORNING AND IN THE EVENING 60 tablet Active meclizine (Antivert) 25 MG tabletIndications :Vertigo Take 1 tablet (25 mg) by mouth if needed in the morning, at noon, and at bedtime for dizziness for up to 10 days. 30 tablet 09/29/20 25 9:50 AM EST 2024 Active Diclofenac Sodium 1 % gelIndications:Ac [place] right-sided low back pain without sciatica Apply 1 Application topically if needed in the morning, at noon, in the evening, and at bedtime (pain) for up to 7 days. 100 g 09/29/20 25 9:50 AM EST 2024 Active polyethylene glycol, PEG, 3350 (GaviLAX) 17 GM/SCOOP powder MIX 17G (1 CAPFUL) IN 8 OUNCES OF WATER AND TAKE BY MOUTH TWICE A DAY 238 g 11 024 2024 Discontinued(R eorder (will not trigger notification to Pharmacy)) Ferrous Sulfate (iron) 325 (65 Fe) MG tablet TAKE 1 TABLET BY MOUTH EVERY MORNING WITH FOOD 30 tablet 2024 Discontinued cholecalciferol (Vitamin D-3) 25 MCG tabletIndications :Vitamin D deficiency Take 1 tablet (25 mcg) by mouth 2 times daily. 60 tablet 2024 Discontinued cefuroxime (Ceftin) 500 MG tabletIndications :Acute cystitis without hematuria Take 1 tablet (500 mg) by mouth 2 times daily for 7 days. 14 tablet 2024 Active Problems Problem Noted Date Diagnosed [...] because it calms her down. I called [facility] pharmacy to attempt a med rec they instructed me that she is on med box and one week at a time prescriptions because she would break into her med boxes to take more Ambien or xanax. She is being seen by Izzy Perea at [facility]. He is aware of her behavior [...] left I received a call from the [facility] pharmacy instructing me that she was [...] Encounters Date Type Department Care Team Description 09/29/2025 8:40 AM EST Office Visit [facility] [address] [place] [address] Zach Javier MD Acute right-sided low back pain without sciatica (Primary Dx); Vertigo 09/29/2025 Travel 09/28/2025 Refill [facility] [address] [place], [place] [phone] Name, MD Nitin Vitamin D deficiency 09/27/2025 Refill [facility] [address] [place], [place] [phone] Name, MD Nitin 09/22/2025 Telephone [facility] [address] [place] [address] Nitin Echevarria MD Nurse Triage 09/22/2025 Orders Only GENERIC EXTERNAL DATA DEPARTMENT Provider, Generic External Data 09/21/[address] [address] Nitin Echevarria MD Request For Order(s); Referral 09/19/2025 Refill [facility] [address] [place] [address] Nitin Echevarria MD 09/19/2025 Orders Only GENERIC EXTERNAL DATA DEPARTMENT Provider, Generic External Data 09/18/2025 Orders Only [facility] External Provider, [facility] 09/17/2025 Orders Only GENERIC EXTERNAL DATA DEPARTMENT Provider, Generic External Data 09/09/[address] [address] Thea Warren FNP Results 09/06/2025 1:30 PM EDT Office Visit [address] [address] Thea Warren FNP Acute pain of left knee (Primary Dx); Urinary frequency; Acute cystitis without hematuria 09/06/2025 Orders Only [address] [address] Thea Warren FNP 09/06/2025 Travel 09/05/[address] [address] Nitin Echevarria MD Chart Prep 09/03/2025 Orders Only GENERIC EXTERNAL DATA DEPARTMENT Provider, Generic External Data 08/30/2025 Patient Outreach [facility] [address] [place] [address] Nitin Echevarria MD Pre-visit Planning ([facility] unable to reach) 08/24/2025 Telephone [facility] [address] [place] [phone] Nitin Echevarria MD Referral 08/24/[address] [address] Nitin Echevarria MD Verbal Order 08/22/2025 Orders Only [facility] External Provider, [facility] 08/18/2025 Orders Only GENERIC EXTERNAL DATA DEPARTMENT Provider, Generic External Data 08/17/2025 Refill [facility] [address] [place] [address] Nitin Echevarria MD 08/17/2025 Refill [facility] [address] [place] [address] Miryam Riley, KIKO Hypertension, unspecified type 08/15/2025 Refill [facility] [address] [place] [address] Nitin Echevarria MD Heartburn 08/14/2025 Refill [facility] [address] [place], [place] [phone] Nitin Echevarria MD Heartburn; Vitamin D deficiency 08/09/2025 11:15 AM EDT Office Visit [facility] [address] [place] [phone] Nitin Echevarria MD Generalized anxiety disorder with panic attacks (Primary Dx); Encounter for immunization; Chronic bilateral low back pain without sciatica 08/09/2025 Travel 08/01/2025 Refill [facility] [address] [place] [address] Nitin Echevarria MD Vitamin D deficiency 07/28/2025 Orders Only GENERIC EXTERNAL DATA DEPARTMENT Provider, Generic External Data 07/27/2025 Orders Only [facility] External Provider, [facility] 07/26/2025 Orders Only GENERIC EXTERNAL DATA DEPARTMENT Provider, Generic External Data 07/26/2025 Telephone [facility] [address] [place] [phone] Nitin Echevarria MD ER Follow-up 07/25/2025 Refill [facility] [address] [place] [address] Nitin Echevarria MD 07/25/2025 Refill [facility] [address] [place] [address] Nitin Echevarria MD 07/18/2025 Refill [facility] [address] [place] [address] Miryam Riley, KIKO 07/18/2025 Orders Only GENERIC EXTERNAL DATA DEPARTMENT Provider, Generic External Data 07/17/2025 Refill [facility] [address] [place] [address] Name, MD Nitin Hypertension, unspecified type 07/07/2025 8:40 AM EDT Office Visit [facility] [address] [place] [address] Zach Javier MD Acute conjunctivitis of left eye, unspecified acute conjunctivitis type (Primary Dx) 07/07/2025 Travel from Last 3 Months Immunizations Immunization Administration [...] Mass Index 31.65 09/29/2025 8:49 AM EST Plan of Treatment Upcoming Encounters Date Type Department Care Team (Late st Contact Info) Description 11/07/2025 10:00 AM EST Office Visit [facility] [address] [place] [address] Name, MD Nitin [address] [place] [address] Health Maintenance Due Date Last Done Comments COVID-19 Vaccine ( season) 2025 08/16/2024, 08/22/2022, 08/22/2022, Additional history exists Diabetes: Hemoglobin A1C 01/10/2026 025, 06/02/2023, 12/25/2022, Additional history exists Depression Screening 04/29/2026 04/29/2025, 04/29/20 SDOH Screening 08/09/2026 08/09/2025 Alcohol/Substance Use Screening 09/06/2026 09/06/2025 Tobacco Screening 09/29/2026 09/29/2025 Lipid Panel 09/19/2027 09/19/2022, 01/08, 04/12/2021 DTaP/Tdap/Td [...] Associated Diagnosis Comments BASIC METABOLIC PANEL Routine 09/22/2025 7:21 AM EST CBC WITH AUTO DIFFERENTIAL Routine 09/22/2025 7:[address] HEAD WO CONTRAST Routine 09/19/2025 3 [...] Maintenance Results * (ABNORMAL) CBC auto differential (09/22/2025 7:21 AM EST) Only the most recent of6 resultswithin the time period is included. White Blood Count 6.6 4.8 - 10.8 X10*3/uL [facility] Red Blood Count 4.39 4.20 - 5.50 X10*6/uL [facility] Hemoglobin 12.2 12.0 - 16.0 g/dl [facility] Hematocrit 37.3 37.0 - 47.0 % [facility] Mean Corpuscular Volume 85.0 80.0 - 98.0 fL [facility] Mean Corpuscular Hemoglobin 27.8 27.0 - 33.0 pg [facility] Mean Corpuscular HGB Conc 32.7 31.0 - 35.0 g/dl [facility] Red Cell Distribution Width 13.8 11.0 - 16.0 % [facility] Platelet Count 295 160 - 400 X10*3/uL [facility] Mean Platelet Volume 8.1(L) 9.4 - 12.3 fL [facility] Neutrophils Percent Auto 70.6 45 - 73 % [facility] Imm Gran Pct Auto 0.5(H) 0.0 - 0.4 % [facility] Lymphocytes Percent Auto 18.3(L) 20 - 40 % [facility] Monocytes Percent Auto 9.4 2 - 11 % [facility] Eosinophils Percent Auto 0.6 0 - 4 % [facility] Basophils Percent Auto 0.6 0 - 2 % [facility] NRBC Pct Auto 0.0 0.0 - 0.2 /100WBC [facility] Neutrophils Absolute Auto 4.7 2.0 - 8.3 x10*3/uL [facility] Imm Gran Abs Auto 0.03 0.00 - 0.03 X10*3/uL [facility] Lymphocytes Absolute Auto 1.2 1.2 - 4.9 X10*3/uL [facility] Monocytes Absolute Auto 0.6 0.1 - 1.2 X10*3/uL [facility] Eosinophils Absolute Auto 0.0 0.0 - 0.4 X10*3/uL [facility] Basophils Absolute Auto 0.0 0.0 - 0.2 X10*3/uL [facility] NRBC Abs Auto 0.000 0.0 - 0.012 X10*3/uL [facility] 09/22/2025 7:21 AM EST 09/22/2025 7:23 AM EST us Generic External Data Provider LAB BLOOD ORDERAB LES Final Result [facility] [address] [place] [phone] * (ABNORMAL) Basic Metabolic Panel (09/22/2025 7:21 AM EST) Only the most recent of3 resultswithin the time period is included. Sodium 137 135 - 145 mmol/L [facility] Potassium 4.7 3.3 - 5.1 mmol/L [facility] Chloride 100 96 - 108 mmol/L [facility] Carbon Dioxide 29 22 - 29 mmol/L [facility] Anion Gap 13 12 - 20 [facility] Urea Nitrogen (BUN) 18(H) 9 - 16 mg/dL [facility] Creatinine, Serum 0.85 0.5 - 1.4 mg/dL [facility] Creatinine Clr Calc Pharmacy 56.1 [facility] Comment:Provided height and weight: 162.56 cm,89.3 kg.eGFR (calculated from the MDRD study equation) and eCrCl(calculated from the Cockcroft-Gault equation) are based ondifferent parameters and may not yield comparable results.If eCrCl result is absurd, please check patient'sheight/weight. Estimated Glomerular Filt Rate >60 [facility] Comment:Chronic Kidney Disea se: Estimated GFR < 60 mL/min/1.05z8Kyqnwp Kidney Disease: Estimated GFR < 15 mL/min/1.73m2 Glucose 105 60 - 115 mg/dL [facility] Calcium 10.0 8.4 - 10.2 mg/dL [facility] 09/22/2025 7:21 AM EST 09/22/2025 7:23 AM EST us Generic External Data Provider LAB BLOOD ORDERAB LES Final Result Performing Organization Address City/State/[facility] Co de Phone Number [facility] [address] [place] [address] [phone] * CT Head w/o Contrast (09/19/2025 3:43 AM EST) Only the most recent of2 resultswithin the time period is included. Anatomical Region Laterality Modality Head, Neck Computed Tomogra phy 09/19/2025 3:43 AM EST Narrative 09/19/2025 3:45 AM EST [place] [address] CT Scan Report Signed Patient: Noreen Wing MR#: [id number] : 1945 Acct:[id number] Age/Sex: 79 / F ADM Date: 09/18/25 Loc: .ED Attending Dr: Ordering Physician: Marium Ny DO Date of Service: 09/19/25 Procedure(s): CT head/brain wo IV con Accession Number(s): [id number] cc: Marium Ny DO; [facility] Report Number: [id number]: Total DLP = 747.02 mGy-cm Reason for [...] in OV> 09/19/25343 DD/ 2 TD/TT: 09/19/25342 Palm Gatherer: Procedure Note Donotuseinterpreter, Image - 09/19/[address] [place] [address] [address] Scan Report Signed Patient: Jennifer Wing#: [id number] : 1945cct:[id number] Age/Sex: 79 / FADM Date: 09/18/25 Loc: HO.ED Attending Dr: Ordering Physician: Marium Ny DO Date of Service: 09/19/25 Procedure(s): CT head/brain wo IV con Accession Number(s): [id number] cc: Marium Ny DO; [facility] Report Number: [id number]: Total DLP = 747.02 mGy-cm Reason for [...] in OV> 09/19/25343 DD/ 2 TD/TT: 09/19/25342 Palm Gatherer: [facility] External Provider IMG CT PROCEDURES Edited Result - Final * CT Cervical Spine w/o Contrast (09/19/2025 3:42 AM EST) Only the most recent of2 resultswithin the time period is included. Anatomical Region Laterality Modality Spine, C-spine Computed Tomogra phy 09/19/2025 3:42 AM EST Narrative 09/19/2025 3:43 AM EST [place] [address] CT Scan Report Signed Patient: Noreen Wing MR#: [id number] : 1945 Acct:[id number] Age/Sex: 79 / F ADM Date: 09/18/25 Loc: HO.ED Attending Dr: Ordering Physician: Marium Ny DO Date of Service: 09/19/25 Procedure(s): CT cervical spine wo IV con Accession Number(s): [id number] cc: Marium Ny DO; [facility] Report Number: [id number]: Total DLP = 428.77 mGy-cm Reason for Exam: fall, head trauma CLINICAL HISTORY: fall, head trauma CT cervical spine without contrast Comparison: CT/SR - CT CERVICAL SPINE WO IV CON - 09/03/25 13:35 EDT Findings: The alignment of the cervical spine is normal. There is no fracture. There is smxk-rp-mdfxssmm C5-6 degenerative disc disease. There are posterior osteophytes at C5-6 probably causing rgdu-xl-gyeywgnn central canal stenosis. There is multilevel facet [...] in OV> 09/19/25341 DD/ 1 TD/TT: 09/19/25341 Palm Gatherer: Procedure Note Donotuseinterpreter, Image - 09/19/[address] [address] [address] Scan Report Signed Patient: Jennifer Wing#: [id number] : 3Acct:[id number] Age/Sex: 79 / FADM Date: 09/18/25 Loc: HO.ED Attending Dr: Ordering Physician: Marium Ny DO Date of Service: 09/19/25 Procedure(s): CT cervical spine wo IV con Accession Number(s): [id number] cc: Marium Ny DO; [facility] Report Number: [id number]: Total DLP = 428.77 mGy-cm Reason for Exam: fall, head trauma CLINICAL HISTORY: fall, head trauma CT cervical spine without contrast Comparison: CT/SR - CT CERVICAL SPINE WO IV CON - 09/03/25 13:35 EDT Findings: The alignment of the cervical spine is normal. There is no fracture. There is ajxk-hv-ldiugkdx C5-6 degenerative disc disease. There are posterior osteophytes at C5-6 probably causing iqpy-bt-aphmczwp central canal stenosis. There is multilevel facet [...] in OV> 09/19/25341 DD/ 1 TD/TT: 09/19/25341 Palm Gatherer: [facility] External Provider IMG CT PROCEDURES Edited Result - Final * (ABNORMAL) Urinalysis, Complete, with Reflex to Culture (09/19/2025 3:15 AM EST) Only the most recent of4 resultswithin the time period is included. Color Urine Yellow [facility] Appearance Urine Clear [facility] PH 5.5 5.0 - 9.0 [facility] Glucose Urine UA Negative Negative mg/dL [facility] Urine Blood Negative Negative [facility] Specific [place] - Urine 1.020 1.005 - 1.025 [facility] Urine Protein Negative Neg-Trace mg/dL [facility] Urine Ketones Negative Negative mg/dL [facility] Nitrite Urine Negative Negative [facility] Leukocyte Esterase Urine Moderate (2+)(A) Negative [facility] RBC Urine 0-2 0 - 2 /HPF [facility] Urine WBC 21-50(A) 0 - 5 /HPF [facility] Urine Squamous Epithelial Cell 0-2 0 - 2 /HPF [facility] Urine Bacteria None Seen None Seen [facility] Hyaline Casts, Urine 0-2 0 - 2 /LPF [facility] 09/19/2025 3:15 AM EST 09/19/2025 3:24 AM EST Narrative [facility] - 09/19/2025 3:34 AM EST [id number], Clean Catch [employer] External Data Provider LAB URINE ORDERAB LES Final Result Performing Organization Address [facility] Co de Phone Number [facility] [address] [place] [phone] * Culture, Urine, Routine (09/19/2025 3:15 AM EST) Only the most recent of5 resultswithin the time period is included. Urine Urine specimen obtained by clean catch procedure / Unknown 09/19/2025 3:15 AM EST 09/19/2025 3:34 AM EST Comment:UACC Narrative [facility] - 09/20/2025 11:42 AM EST Urine Culture Report Result Urine Culture 10,000 to 50,000 cfu/ml Urine Culture Mixed bacterial jann characteristic of Urine Culture urogenital contamination. Specimen Source: Urine clean catch Generic External Data Provider LAB MICROBIOLOGY - GENERAL ORDERABLES Final Result Performing Organization Address City/State/[facility] de Phone Number [facility] [address] [place] [phone] * High Sensitivity Troponin I (09/19/2025 12:26 AM EST) Only the most recent of6 resultswithin the time period is included. TROPONIN I HIGH SENSITIVITY <2.7 <3.5 - 17.0 ng/L [facility] Comment:The Mckeon high sens itivity Troponin-I results should beused in conjunction with other diagnostic information suchas ECG, clinical observations and information, and patientsymptoms to aid in the diagnosis of GA. 09/19/2025 12:2 6 AM EST 09/19/2025 12:28 AM EST us Generic External Data Provider LAB BLOOD ORDERAB LES Final Result Performing Organization Address [facility] Number [facility] [address] [place] [phone] * Prothrombin Time-INR (09/19/2025 12:26 AM EST) Only the most recent of2 resultswithin the time period is included. Prothrombin Time 12.5 11.2 - 13.5 SEC [facility] INTERNATIONAL NORM RATIO 1.0 0.9 - 1.1 [facility] Comment:INTERNATIONAL NORMAL IZED RATIO [...] ORDERAB LES Final Result Performing Organization Address [facility]/ZIP Co de Phone Number [facility] [address] [place] [address] [phone] * (ABNORMAL) Comprehensive Metabolic Panel (09/19/2025 12:26 AM EST) Only the most recent of4 resultswithin the time period is included. Sodium 136 135 - 145 mmol/L [facility] Potassium 4.1 3.3 - 5.1 mmol/L [facility] Chloride 101 96 - 108 mmol/L [facility] Carbon Dioxide 25 22 - 29 mmol/L [facility] Anion Gap 14 12 - 20 [facility] Urea Nitrogen (BUN) 33(H) 9 - 16 mg/dL [facility] Creatinine, Serum 0.99 0.5 - 1.4 mg/dL [facility] Creatinine Clr Calc Pharmacy 45.4 [facility] Comment:Provided height and weight: 157.48 cm,86.183 kg.eGFR (calculated from the MDRD study equation) and eCrCl(calculated from the Cockcroft-Gault equation) are based ondifferent parameters and may not yield comparable results.If eCrCl result is absurd, please check patient'sheight/weight. Estimated Glomerular Filt Rate 54 [facility] Comment:Chronic Kidney Disea se: Estimated GFR < 60 mL/min/1.00k7Uqzfjq Kidney Disease: Estimated GFR < 15 mL/min/1.73m2 Glucose 108 60 - 115 mg/dL [facility] Calcium 8.9 8.4 - 10.2 mg/dL [facility] Bilirubin, Total 0.3 0.0 - 1.0 mg/dL [facility] Aspartate Amino Transferase 26 5 - 31 U/L [facility] Alanine Aminotransferase 14 0 - 31 U/L [facility] Total Protein 7.6 6.5 - 8.0 g/dL [facility] Albumin Level 4.1 3.5 - 5.0 g/dL [facility] Alkaline Phosphatase 92 39 - 117 U/L [facility] 09/19/2025 12:2 6 AM EST 09/19/2025 12:28 AM EST us Generic External Data Provider LAB BLOOD ORDERAB LES Final Result [facility] [address] [place] [address] [phone] * XR Knee 4+ Views Left (09/18/2025 3:36 PM EST) Only the most recent of2 resultswithin the time period is included. Anatomical Region Laterality Modality Lower Extremities, Knee Left Radiogra phic Imaging 09/18/2025 3:36 PM EST Narrative 09/18/2025 3:39 PM EST [place] [address] XRay Report Signed Patient: Noreen Wing MR#: [id number] : 1945 Acct:[id number] Age/Sex: 79 / F ADM Date: 09/18/25 Loc: HO.ED Attending Dr: Ordering Physician: Cuco Amador Date of Service: 09/18/25 Procedure(s): XR knee LT 4V Accession Number(s): [id number] cc: Cuco Amador; Name,Nitin PIKE Reason for [...] OV> 09/18/25 1538 DD/ 1536 TD/TT: 09/18/25 153 Palm Gatherer: Procedure Note Donotuseinterpreter, Image - 09/18/2025 [place] [address] XRay Report Signed Patient: Noreen WingMR#: [id number] : 3Acct:[id number] Age/Sex: 79 / FADM Date: 09/18/25 Loc: HO.ED Attending Dr: Ordering Physician: Cuco Amador Date of Service: 09/18/25 Procedure(s): XR knee LT 4V Accession Number(s): [id number] cc: Cuco Amador; Name,Nitin PIKE Reason for [...] MD on 09/18/2025 15:36:33 Dictated By: Ash Sehrman MD Signed By: <Electronically signed by Ash Sherman MD in OV> 09/18/25 1538 DD/ 1536 TD/TT: 09/18/25 1536 Palm Gatherer: [facility] External Provider IMG XR PROCEDURES Edited Result - Final * Glucose, Whole Blood (09/17/2025 7:24 AM EST) Glucose, Whole Blood 98 60 - 115 mg/dL [facility] Comment:METER #: [id number] 09/17/2025 7:24 AM EST 09/17/2025 7:28 AM EST Generic External Data Provider LAB BLOOD ORDERAB LES Final Result [facility] [address] [place] [phone] * POCT Urinalysis (09/06/2025 1:32 PM [...] Random) 09/06/2025 1:32 PM EDT us Thea Briana SH[employer] FILLER [employer]CH MACHINE OPERATOR POINT OF CARE TEST ENTER/EDIT ORDERABLES Final Result * Magnesium (09/03/2025 2:08 PM EDT) Magnesium 2.0 1.6 - 2.6 mg/dL [facility] 09/03/2025 2:08 PM EDT 09/03/2025 2:12 PM EDT us Generic External Data Provider LAB BLOOD ORDERAB LES Final Result Performing Organization Address City/State/[facility] Co de Phone Number [facility] [address] [place] [phone] * CTA Chest PE Protocal (07/28/2025 8:35 PM EDT) Only the most recent of2 resultswithin the time period is included. Anatomical Region Laterality Modality Body, Chest Computed Tomogra phy 07/28/2025 8:35 PM EDT Narrative 07/28/2025 8:36 PM EDT [address] [address] [address] Scan Report Signed Patient: Noreen Wing MR#: [id number] : 1945 Acct:[id number] Age/Sex: 79 / F ADM Date: 07/28/25 Loc: .ED Attending Dr: Ordering Physician: Cuco Amador Date of Service: 07/28/25 Procedure(s): CT angio chest PE protocol Accession Number(s): [id number] cc: Cuco Amador; Name,Nitin PIKE Report Number: [id number]: Total DLP = 311.00 mGy-cm Reason for [...] in OV> 07/28/252034 DD/ 34 TD/TT: 07/28/252034 Palm Gatherer: Procedure Note Donotuseinterpreter, Image - 07/28/[address] [place] [address] [address] Scan Report Signed Patient: Jennifer Wing#: [id number] : 3Acct:[id number] Age/Sex: 79 / FADM Date: 07/28/25 Loc: HO.ED Attending Dr: Ordering Physician: Cuco Amador Date of Service: 07/28/25 Procedure(s): CT angio chest PE protocol Accession Number(s): [id number] cc: Cuco Amador; Name,Nitin PIKE Report Number: [id number]: Total DLP = 311.00 mGy-cm Reason for [...] in OV> 07/28/252034 DD/ 34 TD/TT: 07/28/252034 Palm Gatherer: [facility] External Provider IMG CT PROCEDURES Final Result * CT Abdomen Pelvis w/ Contrast (07/28/2025 8:01 PM EDT) Anatomical Region Laterality Modality Body, Pelvis, Abdomen Computed T omography 07/28/2025 8:01 PM EDT Narrative 07/28/2025 8:03 PM EDT [place] [address] CT Scan Report Signed Patient: Noreen Wing MR#: [id number] : 1945 Acct:[id number] Age/Sex: 79 / F ADM Date: 07/28/25 Loc: .ED Attending Dr: Ordering Physician: Cuco Amador Date of Service: 07/28/25 Procedure(s): CT abdomen pelvis w IV con Accession Number(s): [id number] cc: Cuco Amador; Name,Nitin PIKE Report Number: [id number]: Total DLP = 539.64 mGy-cm Reason for [...] in OV> 07/28/252001 DD/ 00 TD/TT: 07/28/252000 Palm Gatherer: Procedure Note Donotuseinterpreter, Image - 07/28/[address] [place] [address] [address] Scan Report Signed Patient: Noreen WingMR#: [id number] : 1945cct:[id number] Age/Sex: 79 / FADM Date: 07/28/25 Loc: HO.ED Attending Dr: Ordering Physician: Cuco Amador Date of Service: 07/28/25 Procedure(s): CT abdomen pelvis w IV con Accession Number(s): [id number] cc: Cuco Amador; Name,Nitin PIKE Report Number: [id number]: Total DLP = 539.64 mGy-cm Reason for [...] in OV> 07/28/252001 DD/ 00 TD/TT: 07/28/252000 Palm Gatherer: [facility] External Provider IMG CT PROCEDURES Final Result * Partial Thromboplastin Time, Activated (APTT) (07/28/2025 5:01 PM EDT) Partial Thromboplastin Time 31.4 26.7 - 34.1 SEC [facility] 07/28/2025 5:01 PM EDT 07/28/2025 5:05 PM EDT Generic External Data Provider LAB BLOOD ORDERAB LES Final Result Performing Organization Address [facility] Co de Phone Number [facility] [address] [place] [phone] * Lipase (07/28/2025 5:01 PM EDT) Lipase 31 8 - 78 U/L [facility] 07/28/2025 5:01 PM EDT 07/28/2025 5:05 PM EDT Generic External Data Provider LAB BLOOD ORDERAB LES Final Result Performing Organization Address [facility] Co de Phone Number [facility] [address] [place] [phone] * POCT HGB A1C (01/10/2025 11:02 [...] LDL-C. Jack SS et al. JITENDRA. 2013;310(19): 7482-3348 (http://education.BeMo.com/faq/OMI830) Non-HDL Cholesterol 88 <130 mg/dL (calc) CONVERTED [...] Most Recently Relevant to Health Maintenance Insurance [facility] OPTIONS (HMO D-SNP) [place] [id number] Care Teams Sample Card Maker Relationship Specialty Start Date End Date Name, MD Nitin [address] [place] [address] PCP - General Family Medicine 08/26/17 [facility] 09/01/24
--- OUTSIDE RECORDS SUMMARY | 2025-10-03 23:45 | XMS_ITS | Encounter Summary ---
Author Organization [employer] Address 75 [facility] [address] [place] [address] Care Team Providers Care Clean Up Supervisor Name Role Phone Name, Nitin PIKE Primary Care Provider [phone] Reason for Visit * Reason Onset Date Comments Order(s) 12/09/2023 Encounter Details Date Type Department Care Team ([facility] Contact Info) Description 12/09/2023 Telephone [facility] [address] [place], [place] [phone] Name, MD Nitin [address] [place], [place] [phone] Order(s) Social History Tobacco Use Types Packs/Day [...] orders. If any questions please contact Noreen [phone]. documented in this encounter Plan of Treatment Upcoming Encounters Date Type Department Care Team (Late st Contact Info) Description 11/07/2025 10:00 AM EST Office Visit [facility] [address] [place] [address] Name, MD Nitin [address] [place] [address] documented as of this encounter Visit Diagnoses Not on filedocumented in this encounter Additional Health Concerns Assessment Noted Time PHQ-9 Depression Total Score: 12 023 9:37 AM EDT documented as of this encounter Care Teams Clean Up Supervisor Relationship Specialty Start Date End Date Name, MD Nitin [address] [place] [address] PCP - General Family Medicine 08/26/17 [facility] 09/01/24 documented as of this encounter
--- OUTSIDE RECORDS SUMMARY | 2025-10-03 23:45 | XMS_ITS | Encounter Summary ---
Author Organization [employer] Address [address] [facility] [address] [place] [address] Care Team Providers Care Hand Tacker Name Role Phone Name, Nitin PIKE Primary Care Provider [phone] Reason for Visit * Reason Onset Date Comments triage 12/18/2022 Encounter Details Date Type Department Care Team ([facility] st Contact Info) Description 12/18/2022 Telephone [facility] [address] [place], [place] [phone] Name, MD iNtin [address] [place] [address] triage Social History Tobacco Use Types Packs/Day [...] 12/18/2022 2:35 PM EST Called pt. Via [employer] contracting executive [phone] Eduardo. Pt. States that she has a [...] phone. Please reach out to pt. With Argentine speaking another time to see what her [...] Description 11/07/2025 10:00 AM EST Office Visit [facility] [address] [place] [address] Name, MD Nitin [address] [place] [address] documented as of this encounter Visit Diagnoses Not on filedocumented in this encounter Care Teams Hand Tacker Relationship Specialty Start Date End Date Name, MD Nitin [address] [place] [address] PCP - General Family Medicine 08/26/17 [facility] 09/01/24 documented as of this encounter
--- OUTSIDE RECORDS SUMMARY | 2025-10-03 23:45 | XMS_ITS | Encounter Summary ---
Author Organization [employer] Address 75 [facility] [address] [place] [address] Care Team Providers Care Vault Maker Name Role Phone Name, Nitin PIKE Primary Care Provider [phone] Encounter Details Date Type Department Care Team (Late st Contact Info) Description 11/06/2022 Orders Only [facility] [address] [place], [place] [phone] Lisha Kelly LPN Social History Tobacco Use [...] 10:00 AM EST Office Visit [facility] MEDICINE [address] [place] [address] NameNitin MD 230 [place] [address] documented as of this encounter Visit Diagnoses Not on filedocumented in this encounter Care Teams Vault Maker Relationship Specialty Start Date End Date Nitin Echevarria MD 230 [place] [address] PCP - General Family Medicine 08/26/17 [facility] 09/01/24 documented as of this encounter
--- OUTSIDE RECORDS SUMMARY | 2025-10-03 23:45 | XMS_ITS | Encounter Summary ---
Author Organization [employer] Address [address] [facility] 7[address] [place] [address] Care Team Providers Care Lock Expert Name Role Phone Name, Nitin PIKE Primary Care Provider [phone] Encounter Details Date Type Department Care Team ([facility] Contact Info) Description 08/08/2023 Telephone [facility] MEDICINE [address] [place] [address] [phone] Name, MD Nitin [address] [place] [address] [phone] Social History Tobacco Use Types Packs/Day Years [...] EST Office Visit [facility] [address] [place] [address] [phone] Name, MD Nitin [address] [place] [address] [phone] documented as of this encounter Visit Diagnoses Not on filedocumented in this encounter Additional Health Concerns Assessment Noted Time PHQ-9 Depression Total Score: 12 023 9:37 AM EDT documented as of this encounter Care Teams Lock Expert Relationship Specialty Start Date End Date Name, MD Nitin [address] [place] [address] PCP - General Family Medicine 08/26/17 [facility] 09/01/24 documented as of this encounter
--- OUTSIDE RECORDS SUMMARY | 2025-10-03 23:45 | XMS_ITS | Encounter Summary ---
Author Organization [employer] Address 75 [facility] [address] [place] [address] Care Team Providers Care Hazardous Materials Driver Name Role Phone Name, Nitin PIKE Primary Care Provider [phone] Reason for Visit * Reason Onset Date Comments Results 08/29/2023 Encounter Details Date Type Department Care Team ([facility] st Contact Info) Description 08/29/2023 Telephone [facility] MEDICINE 230 [place], [place] [phone] Name, MD Nitin 230 [place] [address] Results Social History Tobacco Use Types Packs/Day [...] 09/01/2023 11:51 AM EDT Pt evaluated in [facility] today and is scheduled with pcp 09/03/23. * Telephone Encounter - Janette Huitron - 08/29/2023 4:06 PM EDT Tc from pt requesting a call in regards to urine results. Please contact pt at [phone] ([phone]) documented in this encounter Plan of Treatment Upcoming Encounters Date Type Department Care Team (Late st Contact Info) Description 11/07/2025 10:00 AM EST Office Visit [facility] MEDICINE [address] [place] [address] Name, MD Nitin [address] [place] [address] documented as of this encounter Visit Diagnoses Not on filedocumented in this encounter Additional Health Concerns Assessment Noted Time PHQ-9 Depression Total Score: 12 023 9:37 AM EDT documented as of this encounter Care Teams Hazardous Materials Driver Relationship Specialty Start Date End Date Name, MD Nitin [address] [place] [address] PCP - General Family Medicine 08/26/17 [facility] 09/01/24 documented as of this encounter
--- OUTSIDE RECORDS SUMMARY | 2025-10-03 23:45 | XMS_ITS | Encounter Summary ---
Author Organization [employer] Address 75 [facility] 7[address] [place] [address] Care Team Providers Care Director Hospice Operations Name Role Phone Name, Nitin PIKE Primary Care Provider [phone] Reason for Visit * Reason Comments Med Refill Encounter Details Date Type Department Care Team (Late Contact Info) Description 03/02/2023 Refill [facility] MEDICINE [address] [place] [phone] Karely Patiño MD [address] [place] [address] [phone] Social History Tobacco Use Types Packs/Day Years [...] [facility] MEDICINE [address] [place] [address] Name, MD Nitin [address] [place] [address] documented as of this encounter Visit Diagnoses Not on filedocumented in this encounter Care Teams Director Hospice Operations Relationship Specialty Start Date End Date Name, MD Nitin 230 [place] [address] PCP - General Family Medicine 08/26/17 [facility] 09/01/24 documented as of this encounter
--- OUTSIDE RECORDS SUMMARY | 2025-10-03 23:45 | XMS_ITS | Encounter Summary ---
Author Organization [employer] Address 75 [facility] 7[address] [place] [address] Care Team Providers Care Street Commissioner Name Role Phone Name, Nitin PIKE Primary Care Provider [phone] Reason for Visit * Reason Onset Date Comments Durable Medical Equipment 12/09/2023 Encounter Details Date Type Department Care Team ([facility] st Contact Info) Description 12/09/2023 Telephone [facility] MEDICINE 230 [place], [place] [phone] Name, MD Nitin [address] [place], [place] [phone] Durable Medical Equipment Social History Tobacco Use [...] 4:58 PM EST Call returned to [facility] at [facility] [phone] ext. [phone]. [facility] states that [facility] attempted to provide PT at home but pt refused. [facility] pt is requesting outpatient PT. [facility] pt is seeing a counselor more regularly and has agreed to VNA referral. Reports pt has had 3 falls in the past 2 months. [facility] states [facility] no longer has visiting nurses. [facility] recommends [employer] or [facility] for VNA referral. [facility] also requesting DME rx for rollator walker and a straight cane. Requests that DME rx be faxed to [phone]. Advised requests will be sent to pcp. * Telephone Encounter - Adithya Solorzano - 12/09/2023 4:25 PM EST Tc from [facility] requesting DME: Rollator walker . documented in this encounter Plan of Treatment Upcoming Encounters Date Type Department Care Team (Late st Contact Info) Description 11/07/2025 10:00 AM EST Office Visit [facility] MEDICINE [address] [place] [address] Name, MD Nitin [address] [place] [address] documented as of this encounter Visit Diagnoses Not on filedocumented in this encounter Additional Health Concerns Assessment Noted Time PHQ-9 Depression Total Score: 12 023 9:37 AM EDT documented as of this encounter Care Teams Street Commissioner Relationship Specialty Start Date End Date Name, MD Nitin [facility] [place] [address] PCP - General Family Medicine 08/26/17 [facility] 09/01/24 documented as of this encounter
--- OUTSIDE RECORDS SUMMARY | 2025-10-03 23:45 | XMS_ITS | Encounter Summary ---
Author Organization [employer] Address [address] [facility] 7[address] [place] [address] Care Team Providers Care School Community Relations Coordinator Name Role Phone Name, Nitin PIKE Primary Care Provider [phone] Encounter Details Date Type Department Care Team ([facility] Contact Info) Description 12/17/2022 Orders Only [facility] CH[facility] MED & PEDS [address] [place], [place] [phone] Lisha Kelly LPN Social History Tobacco Use [...] Visit [facility] MEDICINE [address] [place] [address] Nitin Echevarria MD [address] [place] [address] documented as of this encounter Visit Diagnoses Not on filedocumented in this encounter Care Teams School Community Relations Coordinator Relationship Specialty Start Date End Date NameNitin MD [address] [place] [address] PCP - General Family Medicine 08/26/17 [facility] 09/01/24 documented as of this encounter
--- OUTSIDE RECORDS SUMMARY | 2025-10-03 23:45 | XMS_ITS | Encounter Summary ---
Author Organization [employer] Address [address] [facility] [address] [place] [address] Care Team Providers Care Heavy Forger Helper Name Role Phone Name, Nitin PIKE Primary Care Provider [phone] Reason for Visit * Reason Onset Date Comments Call Back Request 03/14/2025 Encounter Details Date Type Department Care Team ([facility] st Contact Info) Description 03/14/2025 Telephone [facility] MEDICINE 230 [place], [place] [phone] Name, MD Nitin [address] [place] [address] Call Back Request Social History Tobacco Use [...] Visit [facility] MEDICINE [address] [place] [address] Name, MD Nitin [address] [place] [address] documented as of this encounter Visit Diagnoses Not on filedocumented in this encounter Additional Health Concerns Assessment Noted Time PHQ-9 Depression Total Score: 6 02/13/20 9:14 AM EDT documented as of this encounter Care Teams Heavy Forger Helper Relationship Specialty Start Date End Date Name, MD Nitin [address] [place] [address] PCP - General Family Medicine 08/26/17 [facility] 09/01/24 documented as of this encounter
--- OUTSIDE RECORDS SUMMARY | 2025-10-03 23:45 | XMS_ITS | Encounter Summary ---
Author Organization [employer] Address [address] [facility] [address] [place] [address] Care Team Providers Care Video Tape Duplicator Name Role Phone Name, Nitin PIKE Primary Care Provider [phone] Reason for Visit * Reason Onset Date Comments FYI 01/21/2024 ER Follow-up 01/21/2024 Encounter Details Date Type Department Care Team ([facility] st Contact Info) Description 01/21/2024 Telephone [facility] MEDICINE [address] [place], [place] [phone] Name, MD Nitin [address] [place] [address] FYI; ER Follow-up Social History Tobacco Use [...] - 01/21/2024 1:54 PM EDT Message from [facility] ED noted. [facility] note sent to medical records. PCP does not rx Trazodone. Pt to f/u with psych prescriber. Pt is scheduled for f/u with pcp 02/13/24. * Telephone Encounter - Janette Huitron - 01/21/2024 9:45 AM EDT Tc from nata with [facility] ED calling in regards to pt. States pt was seen today for anxiety and is requesting trazodone. Will discharge pt with no medication change. Would also like to advise provider, pt was seen at [facility] on 01/17 for anxiety/insomnia as well documented in this encounter Plan of Treatment Upcoming Encounters Date Type Department Care Team (Late st Contact Info) Description 11/07/2025 10:00 AM EST Office Visit [facility] MEDICINE [address] [place] [address] Name, MD Nitin [address] [place] [address] documented as of this encounter Visit Diagnoses Not on filedocumented in this encounter Additional Health Concerns Assessment Noted Time PHQ-9 Depression Total Score: 12 023 9:37 AM EDT documented as of this encounter Care Teams Video Tape Duplicator Relationship Specialty Start Date End Date Name, MD Nitin [address] [place] [address] PCP - General Family Medicine 08/26/17 [facility] 09/01/24 documented as of this encounter
--- OUTSIDE RECORDS SUMMARY | 2025-10-03 23:45 | XMS_ITS | Encounter Summary ---
Author Organization [employer] Address 75 [facility] 7[address] [place] [address] Care Team Providers Care Ointment Mill Tender Name Role Phone Name, Nitin PIKE Primary Care Provider [phone] Reason for Visit * Reason Onset Date Comments Verbal Orders 12/15/2023 Encounter Details Date Type Department Care Team ([facility] st Contact Info) Description 12/15/2023 Telephone [facility] MEDICINE 230 [place], [place] [phone] Name, MD Nitin [address] [place] [address] Verbal Orders Social History Tobacco Use Types [...] 12:03 PM EST Tc from [facility] with [facility] requesting verbal order to see pt 2 times a week for 4 weeks for Occupational Therapy, please contact [facility] at [phone] documented in this encounter Plan of Treatment Upcoming Encounters Date Type Department Care Team (Late st Contact Info) Description 11/07/2025 10:00 AM EST Office Visit [facility] MEDICINE [address] [place] [address] Name, MD Nitin [address] [place] [address] documented as of this encounter Visit Diagnoses Not on filedocumented in this encounter Additional Health Concerns Assessment Noted Time PHQ-9 Depression Total Score: 12 023 9:37 AM EDT documented as of this encounter Care Teams Ointment Mill Tender Relationship Specialty Start Date End Date Name, MD Nitin [address] [place] [address] PCP - General Family Medicine 08/26/17 [facility] 09/01/24 documented as of this encounter
--- OUTSIDE RECORDS SUMMARY | 2025-10-03 23:45 | XMS_ITS | Encounter Summary ---
Author Organization [employer] Address 75 [facility] 7t [place] [address] Care Team Providers Care Watch Hairspring Assembler Name Role Phone Name, Nitin PIKE Primary Care Provider [phone] Reason for Visit * Reason Comments Med Refill Encounter Details Date Type Department Care Team (Late st Contact Info) Description 08/16/2024 Refill [facility] MED & PEDS [address] [place], [place] [phone] Name, MD Nitin 230 [place] [address] Heartburn Social History Tobacco Use Types Packs/Day [...] Description 11/07/2025 10:00 AM EST Office Visit [facility] MEDICINE [address] [place] [address] NameNitin MD [address] [place] [address] documented as of this encounter Visit Diagnoses Diagnosis Heartburn documented in this encounter Additional Health Concerns Assessment Noted Time PHQ-9 Depression Total Score: 6 02/13/20 24 9:14 AM EDT documented as of this encounter Care Teams Watch Hairspring Assembler Relationship Specialty Start Date End Date NameNitin MD [address] [place] [address] PCP - General Family Medicine 08/26/17 [facility] 09/01/24 documented as of this encounter
--- OUTSIDE RECORDS SUMMARY | 2025-10-03 23:45 | XMS_ITS | Encounter Summary ---
Author Organization [employer] Address 75 [facility] 7[address] [place] [address] Care Team Providers Care Germination Testing Manager Name Role Phone Name, Nitin PIKE Primary Care Provider [phone] Reason for Visit * Reason Comments Med Refill Encounter Details Date Type Department Care Team (Late st Contact Info) Description 01/09/2025 Refill [facility] 230 [place], [place] [phone] Name, MD Nitin 230 [place] [address] Hypertension, unspecified type Social History Tobacco Use [...] Description 11/07/2025 10:00 AM EST Office Visit [facility] MEDICINE [address] [place] [address] NameNitin MD [address] [place] [address] documented as of this encounter Visit Diagnoses Diagnosis Hypertension, unspecified type documented in this encounter Additional Health Concerns Assessment Noted Time PHQ-9 Depression Total Score: 6 02/13/20 9:14 AM EDT documented as of this encounter Care Teams Germination Testing Manager Relationship Specialty Start Date End Date NameNitin MD [address] [place] [address] PCP - General Family Medicine 08/26/17 [facility] 09/01/24 documented as of this encounter
--- OUTSIDE RECORDS SUMMARY | 2025-10-03 23:45 | XMS_ITS | Encounter Summary ---
Author Organization [email or web address] Address [address] [facility] 7[address] [place] [address] Care Team Providers Care Managing Cognitive Engineer Name Role Phone Name, Nitin PIKE Primary Care Provider [phone] Reason for Visit * Reason Onset Date Comments Verbal Orders 01/02/2024 Encounter Details Date Type Department Care Team ([facility] st Contact Info) Description 01/02/2024 Telephone [facility] MEDICINE 230 [place], [place] [phone] Name, MD Nitin 230 [place] [address] Verbal Orders Social History Tobacco Use Types [...] No answer. LVM to call back on [phone]. * Telephone Encounter - Melany Santos RN - 01/06/2024 10:25 AM EST Please review and advise for below request. * Telephone Encounter - Deana Bazzi - 01/02/2024 3:44 PM EST Tc from [facility] with [facility] requesting verbal orders for discharge pt from Occupational Therapy, due to pt refuses services, please contact [facility] at [phone]. documented in this encounter Plan of Treatment Upcoming Encounters Date Type Department Care Team (Late st Contact Info) Description 11/07/2025 10:00 AM EST Office Visit [facility] MEDICINE [address] [place] [address] Name, MD Nitin [address] [place] [address] documented as of this encounter Visit Diagnoses Not on filedocumented in this encounter Additional Health Concerns Assessment Noted Time PHQ-9 Depression Total Score: 12 023 9:37 AM EDT documented as of this encounter Care Teams Managing Cognitive Engineer Relationship Specialty Start Date End Date Name, MD Nitin [address] [place] [address] PCP - General Family Medicine 08/26/17 [facility] 09/01/24 documented as of this encounter
[2025-10-04 00:13] VITALS: BP 150/70; PULSE 74; RESP 16; TEMP 37.2; O2SAT 95
== END 2025-10-04 00:13 | disposition home or self-care (01) ==
PROVIDERS: Emergency Provider Emergency Medicine
DX: F41.1 Generalized anxiety disorder (principal); F41.0 Panic disorder [episodic paroxysmal anxiety]; R32 Unspecified urinary incontinence; I10 Essential (primary) hypertension
CPT/HCPCS: 81001; 87086; 99283; 99284

== ENCOUNTER 2025-10-08 06:43 | Emergency (ER) | payer OTHER, SELFPAY ==
--- OUTSIDE RECORDS SUMMARY | 2025-10-08 06:49 | XMS_ITS | Encounter Summary ---
Author Organization [employer] Address 75 [facility] [address] [place] [address] Care Team Providers Care Rural Mail Contractor Name Role Phone Name, Nitin PIKE Primary Care Provider [phone] Reason for Visit * Reason Onset Date Comments Med Refill 11/08/2024 Encounter Details Date Type Department Care Team ([facility] st Contact Info) Description 11/08/[address] [facility] MEDICINE [address] [place], [place] [phone] Name, MD Nitin 230 [place] [address] Med Refill Social History Tobacco Use Types [...] 5 MG tablet To be sent to: [facility] - [place], [place] - [address] [facility] documented in this encounter Plan of Treatment Upcoming Encounters Date Type Department Care Team ([facility] st Contact Info) Description 11/07/2025 10:00 AM EST Office Visit [facility] MEDICINE [address] [place] [address] Name, MD Nitin 230 [place] [address] documented as of this encounter Visit Diagnoses Not on filedocumented in this encounter Additional Health Concerns Assessment Noted Time PHQ-9 Depression Total Score: 6 02/13/20 24 9:14 AM EDT documented as of this encounter Care Teams Rural Mail Contractor Relationship Specialty Start Date End Date Name, MD Nitin 230 [place] [address] PCP - General Family Medicine 08/26/17 [facility] 09/01/24 documented as of this encounter
--- OUTSIDE RECORDS SUMMARY | 2025-10-08 06:49 | XMS_ITS | Encounter Summary ---
Author Organization [employer] Address 75 [facility] 7[address] [place] [address] Care Team Providers Care Embryology Professor Name Role Phone Name, Nitin PIKE Primary Care Provider [phone] Reason for Visit * Reason Comments Med Refill Encounter Details Date Type Department Care Team (Late st Contact Info) Description 08/17/2025 Refill [facility] MEDICINE [address] [place], [place] [phone] Miryam Riley NP [address] [place] [address] Hypertension, unspecified type Social History Tobacco Use [...] EST Office Visit [facility] MEDICINE [address] [place] [address] NameNitin MD 230 [place] [address] documented as of this encounter Visit Diagnoses Diagnosis Hypertension, unspecified type documented in this encounter Additional Health Concerns Assessment Noted Time PHQ-9 Depression Total Score: 3 04/29/20 25 9:41 AM EDT documented as of this encounter Care Teams Embryology Professor Relationship Specialty Start Date End Date Name, MD Nitin [address] [place] [address] PCP - General Family Medicine 08/26/17 [facility] 09/01/24 documented as of this encounter
--- OUTSIDE RECORDS SUMMARY | 2025-10-08 06:49 | XMS_ITS | Encounter Summary ---
Author Organization [employer] Address 75 [facility] 7[address] [place] [address] Care Team Providers Care Assistant Child Care Teacher Name Role Phone Name, Nitin PIKE Primary Care Provider [phone] Reason for Visit * Reason Onset Date Comments Hospital Follow-up 10/20/2024 Encounter Details Date Type Department Care Team ([facility] Contact Info) Description 10/20/2024 Telephone [facility] MEDICINE 230 [place], [place] [phone] Name, MD Nitin 230 [place] [address] Hospital Follow-up Social History Tobacco Use Types [...] from pt requesting a HDF appt. Hospital: [facility] Date of admission: 10/17 Discharge date: 10/19 Diagnosed: High Blood Pressure and Fever Contact pt at [phone] *Send message to [facility] Care Coordinators documented in this encounter Plan of Treatment Upcoming Encounters Date Type Department Care Team (Late st Contact Info) Description 11/07/2025 10:00 AM EST Office Visit [facility] MEDICINE [address] [place] [address] Name, MD Nitin [address] [place] [address] documented as of this encounter Visit Diagnoses Not on filedocumented in this encounter Additional Health Concerns Assessment Noted Time PHQ-9 Depression Total Score: 6 02/13/20 24 9:14 AM EDT documented as of this encounter Care Teams Assistant Child Care Teacher Relationship Specialty Start Date End Date Name, MD Nitin [address] [place] [address] PCP - General Family Medicine 08/26/17 [facility] 09/01/24 documented as of this encounter
--- OUTSIDE RECORDS SUMMARY | 2025-10-08 06:49 | XMS_ITS | Encounter Summary ---
Author Organization [employer] Address 75 [facility] 7[address] [place] [address] Care Team Providers Care Office Services Representative Name Role Phone Name, Nitin PIKE Primary Care Provider [phone] Reason for Visit * Reason Onset Date Comments ER Follow-up 05/04/2024 Encounter Details Date Type Department Care Team ([facility] Contact Info) Description 05/04/2024 Telephone [facility] MEDICINE 230 [place], [place] [phone] Name, MD Nitin 230 [place] [address] ER Follow-up Social History Tobacco Use Types [...] 11:01 AM EDT T/C to pt. Through [email or web address] id - [id number] for below message, No answer. LVM to call back [phone] . * Telephone Encounter - Adithya Solorzano - 05/04/2024 9:35 AM EDT Noreen with [facility] calling to report ED visit on : Date: 04/28 Hospital: [facility] Seen for: UTI, Nausea, Rash. Noreen advised will be forwarding message to team nurses. Please contact pt at [phone]. documented in this encounter Plan of Treatment Upcoming Encounters Date Type Department Care Team (Late st Contact Info) Description 11/07/2025 10:00 AM EST Office Visit [facility] MEDICINE [address] [place] [address] Name, MD Nitin [address] [place] [address] documented as of this encounter Visit Diagnoses Not on filedocumented in this encounter Additional Health Concerns Assessment Noted Time PHQ-9 Depression Total Score: 6 02/13/20 9:14 AM EDT documented as of this encounter Care Teams Office Services Representative Relationship Specialty Start Date End Date Name, MD Nitin [address] [place] [address] PCP - General Family Medicine 08/26/17 [facility] 09/01/24 documented as of this encounter
--- OUTSIDE RECORDS SUMMARY | 2025-10-08 06:49 | XMS_ITS | Encounter Summary ---
Author Organization [employer] Address 75 [facility] 7[address] [place] [address] Care Team Providers Care Wire Basket Maker Name Role Phone Name, Nitin PIKE Primary Care Provider [phone] Reason for Visit * Reason Comments Med Refill Encounter Details Date Type Department Care Team (Late st Contact Info) Description 04/20/2025 Refill [facility] 230 [place] [address] Zechariah Cheung MD [address] [place] [address] Allergic rhinitis, unspecified seasonality, unspecified trigger Social [...] Office Visit [facility] MEDICINE 230 [place] [address] NameNitin MD 230 [place] [address] documented as of this encounter Visit Diagnoses Diagnosis Allergic rhinitis, unspecified seasonality, unspecified trigger documented in this encounter Additional Health Concerns Assessment Noted Time PHQ-9 Depression Total Score: 6 02/13/20 9:14 AM EDT documented as of this encounter Care Teams Wire Basket Maker Relationship Specialty Start Date End Date Nitin Echevarria MD [address] [place] [address] PCP - General Family Medicine 08/26/17 [facility] 09/01/24 documented as of this encounter
--- OUTSIDE RECORDS SUMMARY | 2025-10-08 06:49 | XMS_ITS | Encounter Summary ---
Author Organization [employer] Address 75 [facility] 7[address] [place] [address] Care Team Providers Care Bi Solutions Architect Name Role Phone Name, Nitin PIKE Primary Care Provider [phone] Reason for Visit * Reason Onset Date Comments Referral 08/24/2025 Encounter Details Date Type Department Care Team ([facility] st Contact Info) Description 08/24/2025 Telephone [facility] MEDICINE [address] [place], [place] [phone] Name, MD Nitin 230 [place] [address] Referral Social History Tobacco Use Types Packs/Day [...] DATE: 09/21/25 TIME: 10 am Facility Name: [facility] PT Type of Specialist: Physical therapy Facility Phone # : [phone] Fax #: [phone] documented in this encounter Plan of Treatment Upcoming Encounters Date Type Department Care Team (Late st Contact Info) Description 11/07/2025 10:00 AM EST Office Visit [facility] MEDICINE [address] [place], [place] [phone] Name, MD Nitin [address] [place] [address] documented as of this encounter Visit Diagnoses Not on filedocumented in this encounter Additional Health Concerns Assessment Noted Time PHQ-9 Depression Total Score: 3 04/29/20 9:41 AM EDT documented as of this encounter Care Teams Bi Solutions Architect Relationship Specialty Start Date End Date Name, MD Nitin [address] [place] [address] PCP - General Family Medicine 08/26/17 [facility] 09/01/24 documented as of this encounter
--- OUTSIDE RECORDS SUMMARY | 2025-10-08 06:49 | XMS_ITS | Clinical Summary ---
Author Organization [facility] Address [address] [place] [address] Phone Care Team Providers Care Radiologic Electronic Specialist Name Role Phone Physician, No Pcp Primary [...] LAB CHEMISTRY METHOD 09/22/2024 3:15 AM [facility] Potassium 4.6 3.5 - 5.5 mmol/L LAB CHEMISTRY METHOD 09/22/2024 3:15 AM [facility] Chloride 98 96 - 110 mmol/L LAB CHEMISTRY METHOD 09/22/2024 3:15 AM [facility] CO2 28 21 - 32 mmol/L LAB CHEMISTRY METHOD 09/22/2024 3:15 AM [facility] Anion Gap 6 3 - 11 LAB CHEMISTRY METHOD 09/22/2024 3:15 AM [facility] Glucose 119(H) 70 - 100 mg/dL LAB CHEMISTRY METHOD 09/22/2024 3:15 AM [facility] BUN 25 5 - 25 mg/dL LAB CHEMISTRY METHOD 09/22/2024 3:15 AM [facility] Creatinine 1.18(H) 0.50 - 1.10 mg/dL LAB CHEMISTRY METHOD 09/22/2024 3:15 AM [facility] eGFR 47(L) >=60 mL/min/1. 73m2 LAB CHEMISTRY METHOD 09/22/2024 3:15 AM [facility] Comment:Calculation based on the Chronic Kidney Disease Epidemiology Collaboration (CKD-EPI) equation refit without adjustment for race. BUN/Creatinine Ratio 21.2 LAB CHEMISTRY METHOD 09/22/2024 3:15 AM [facility] Calcium 9.3 8.5 - 10.5 mg/dL LAB CHEMISTRY METHOD 09/22/2024 3:15 AM [facility] AST (SGOT) 37 10 - 42 unit/L LAB CHEMISTRY METHOD 09/22/2024 3:15 AM [facility] ALT (SGPT) 25 10 - 60 unit/L LAB CHEMISTRY METHOD 09/22/2024 3:15 AM [facility] Alkaline Phosphatase 77 42 - 121 unit/L LAB CHEMISTRY METHOD 09/22/2024 3:15 AM [facility] Total Protein 8.0 6.0 - 8.0 g/dL LAB CHEMISTRY METHOD 09/22/2024 3:15 AM EST [facility] Albumin 4.2 3.2 - 5.0 g/dL LAB CHEMISTRY METHOD 09/22/2024 3:15 AM EST [facility] Total Bilirubin 0.4 0.0 - 1.4 mg/dL LAB CHEMISTRY METHOD 09/22/2024 3:15 AM EST [facility] Blood Venous blood specimen / Unknown Venipuncture / Unknown 09/22/2024 2:28 AM EST 09/22/2024 2:31 AM EST Paul RUIZ LAB BLOOD ORDERABLES Final Resul t [facility] [address] [place] [address], from Last 3 Months or Most Recently Relevant to Health Maintenance Insurance [facility] MEDIC[facility] Member Subscriber Plan / Payer (Ef fective 2021-Present) Name:Noreen Wing Relation to Subscriber:Self Name:Noreen Wing Payer ID:[id number] Group ID:[id number] Type:Not on file Address: [place] [address] [address] Care Teams Radiologic Electronic Specialist Relationship Specialty Start Date End Date Physician, No Pcp PCP - General 09/22/24
--- OUTSIDE RECORDS SUMMARY | 2025-10-08 06:49 | XMS_ITS | Encounter Summary ---
Author Organization [employer] Address [address] [facility] 7[address] [place] [address] Care Team Providers Care Crime Scene Specialist Name Role Phone Name, Nitin PIKE Primary Care Provider [phone] Reason for Visit * Reason Onset Date Comments ER Follow-up 05/31/2024 Encounter Details Date Type Department Care Team ([facility] Contact Info) Description 05/31/2024 Telephone [facility] MEDICINE [address] [place], [place] [phone] Name, MD Nitin 230 [place] [address] ER Follow-up Social History Tobacco Use Types [...] EDT T/C to Pat ([facility]) [phone] for below message, no answer. LVM to call back on [phone]. * Telephone Encounter - Melany Santos RN - 05/31/2024 1:32 PM EDT DAVID T/C to pt. Through [place] id - [id number] for below message, pt. Had recent fall and ED visit at [facility]. RN will request GRACE piedar from [facility]. Pt. Is doing good, states I am tired andsleeping. Pt. Dose not has any question or concern right now. Pt. Already has HDF apt. Schedule on 06/10/2024. Pt. Advised to give call to [facility] if any questions or concerns. Pt. Verbally agreed and understood. Please review and advise if needed. * Telephone Encounter - Adithya Solorzano - 05/31/2024 12:50 PM EDT Patient calling to report ED visit on : Date: 05/[address]: [facility] Seen for: Fall, Back Pain Pat stated pt is requesting a sooner apt with pcp due to recent ER visit. PT is also requesting order for PT services for to go along with [facility]. documented in this encounter Plan of Treatment Upcoming Encounters Date Type Department Care Team (Late st Contact Info) Description 11/07/2025 10:00 AM EST Office Visit [facility] MEDICINE [address] [place] [address] Name, MD Nitin [address] [place] [address] documented as of this encounter Visit Diagnoses Not on filedocumented in this encounter Additional Health Concerns Assessment Noted Time PHQ-9 Depression Total Score: 6 02/13/20 24 9:14 AM EDT documented as of this encounter Care Teams Crime Scene Specialist Relationship Specialty Start Date End Date Name, MD Nitin [address] [place] [address] PCP - General Family Medicine 08/26/17 [facility] 09/01/24 documented as of this encounter
--- OUTSIDE RECORDS SUMMARY | 2025-10-08 06:49 | XMS_ITS | Encounter Summary ---
Author Organization [employer] Address 75 [facility] 7t [place] [address] Care Team Providers Care Can Filler Name Role Phone Name, Nitin PIKE Primary Care Provider [phone] Encounter Details Date Type Department Care Team (Late st Contact Info) Description 10/03/2025 Orders Only GENERIC EXTERNAL DATA DEPARTMENT Provider, [...] EST Office Visit [facility] MEDICINE [address] [place] [address] Name, MD Nitin 230 [place] [address] documented as of this encounter Procedures Procedure Name Priority Date/Time Associated Diagnosis Comments URINALYSIS, COMPLETE, WITH REFLEX TO CULTURE Routine 10/03/2025 11:18 PM EST CULTURE, URINE, ROUTINE Routine 10/03/2025 12:00 AM EST documented in this encounter Results * (ABNORMAL) Urinalysis, Complete, with Reflex to Culture (10/03/2025 11:18 PM EST) Color Urine Yellow [facility] Appearance Urine Clear [facility] PH 6.0 5.0 - 9.0 [facility] Glucose Urine UA Negative Negative mg/dL [facility] Urine Blood Negative Negative [facility] Specific Atkins - Urine 1.015 1.005 - 1.025 [facility] Urine Protein Negative Neg-Trace mg/dL [facility] Urine Ketones Negative Negative mg/dL [facility] Nitrite Urine Negative Negative [facility] Leukocyte Esterase Urine Moderate (2+)(A) Negative [facility] RBC Urine 0-2 0 - 2 /HPF [facility] Urine WBC 11-20(A) 0 - 5 /HPF [facility] Urine Squamous Epithelial Cell 0-2 0 - 2 /HPF [facility] Urine Bacteria None Seen None Seen [facility] Hyaline Casts, Urine 0-2 0 - 2 /LPF [facility] 10/03/2025 11:1 8 PM EST 10/03/2025 11:21 PM EST Narrative [facility] - 10/03/2025 11:29 PM EST [id number], Clean Catch Generic External Data Provider LAB URINE ORDERAB LES Final Result Performing Organization Address [facility] de Phone Number [facility] [address] [place] [phone] * Culture, Urine, Routine (10/03/2025 12:00 AM EST) Urine Urine specimen obtained by clean catch procedure / Unknown 10/03/2025 10/03/2025 Comment:[facility] Narrative [facility] - 10/05/2025 11:28 AM EST Urine Culture Report Result Urine Culture 10,000 to 50,000 cfu/ml Urine Culture Mixed bacterial jann characteristic of Urine Culture urogenital contamination. Specimen Source: Urine clean catch Generic External Data Provider LAB MICROBIOLOGY - GENERAL ORDERABLES Final Result Performing Organization Address [facility] de Phone Number [facility] [address] [place] [phone] documented in this encounter Visit Diagnoses Not on filedocumented in this encounter Additional Health Concerns Assessment Noted Time PHQ-9 Depression Total Score: 3 04/29/20 25 9:41 AM EDT documented as of this encounter Care Teams Can Filler Relationship Specialty Start Date End Date Name, MD Nitin [address] [place] [address] PCP - General Family Medicine 08/26/17 [facility] 09/01/24 documented as of this encounter
--- OUTSIDE RECORDS SUMMARY | 2025-10-08 06:50 | XMS_ITS | Encounter Summary ---
Author Organization [employer] Address [address] [facility] 7[address] [place] [address] Care Team Providers Care Relocation Specialist Name Role Phone Name, Nitin PIKE Primary Care Provider [phone] Encounter Details Date Type Department Care Team ([facility] Contact Info) Description 01/06/2023 Orders Only [facility]S [address] [place], [place] [phone] Lisha Kelly LPN Social History Tobacco Use [...] Office Visit [facility] MEDICINE [address] [place] [address] NameNitin MD [address] [place] [address] documented as of this encounter Visit Diagnoses Not on filedocumented in this encounter Care Teams Relocation Specialist Relationship Specialty Start Date End Date NameNitin MD [address] [place] [address] PCP - General Family Medicine 08/26/17 [facility] 09/01/24 documented as of this encounter
--- OUTSIDE RECORDS SUMMARY | 2025-10-08 06:50 | XMS_ITS | Encounter Summary ---
Author Organization [employer] Address [address] [facility] [address] [place] [address] Care Team Providers Care Indirect Sales Exec Name Role Phone Name, Nitin PIKE Primary Care Provider [phone] Reason for Visit * Reason Onset Date Comments Verbal Orders 12/15/2023 Encounter Details Date Type Department Care Team ([facility] st Contact Info) Description 12/15/2023 Telephone [facility] MEDICINE [address] [place], [place] [phone] Name, MD Nitin [address] [place] [address] Verbal Orders Social History Tobacco Use Types [...] 12:03 PM EST Tc from [facility] with [employer] requesting verbal order to see pt 2 times a week for 4 weeks for Occupational Therapy, please contact [facility] at [phone] documented in this encounter Plan of Treatment Upcoming Encounters Date Type Department Care Team (Late st Contact Info) Description 11/07/2025 10:00 AM EST Office Visit [facility] MED[facility]INE [address] [place] [address] Name, MD Nitin [address] [place] [address] documented as of this encounter Visit Diagnoses Not on filedocumented in this encounter Additional Health Concerns Assessment Noted Time PHQ-9 Depression Total Score: 12 023 9:37 AM EDT documented as of this encounter Care Teams Indirect Sales Exec Relationship Specialty Start Date End Date Name, MD Nitin [address] [place] [address] PCP - General Family Medicine 08/26/17 [facility] 09/01/24 documented as of this encounter
--- OUTSIDE RECORDS SUMMARY | 2025-10-08 06:50 | XMS_ITS | Encounter Summary ---
Author Organization [employer] Address [address] [facility] [address] [place] [address] Care Team Providers Care Health Education Coordinator Name Role Phone Name, Nitin PIKE Primary Care Provider [phone] Reason for Visit * Reason Comments Med Refill Encounter Details Date Type Department Care Team (Late st Contact Info) Description 08/16/2024 Refill [facility] [address] [place], [place] [phone] Name, MD Nitin [address] [place] [address] Heartburn Social History Tobacco Use Types Packs/Day [...] EST Office Visit [facility] MEDICINE [address] [place] [address] NameNitin MD [address] [place] [address] documented as of this encounter Visit Diagnoses Diagnosis Heartburn documented in this encounter Additional Health Concerns Assessment Noted Time PHQ-9 Depression Total Score: 6 02/13/20 24 9:14 AM EDT documented as of this encounter Care Teams Health Education Coordinator Relationship Specialty Start Date End Date NameNitin MD [address] [place] [address] PCP - General Family Medicine 08/26/17 [facility] 09/01/24 documented as of this encounter
--- OUTSIDE RECORDS SUMMARY | 2025-10-08 06:50 | XMS_ITS | Encounter Summary ---
Author Organization [employer] Address 75 [facility] 7[address] [place] [address] Care Team Providers Care Finance Mgr Name Role Phone Name, Nitin PIKE Primary Care Provider [phone] Reason for Visit * Reason Comments Med Refill Encounter Details Date Type Department Care Team (Late st Contact Info) Description 01/09/2025 Refill [facility] [address] [place], [place] [phone] Name, MD Nitin [address] [place] [address] Hypertension, unspecified type Social History Tobacco Use [...] [facility] MEDICINE [address] [place] [address] NameNitin MD [address] [place] [address] documented as of this encounter Visit Diagnoses Diagnosis Hypertension, unspecified type documented in this encounter Additional Health Concerns Assessment Noted Time PHQ-9 Depression Total Score: 6 02/13/20 9:14 AM EDT documented as of this encounter Care Teams Finance Mgr Relationship Specialty Start Date End Date NameNitin MD [address] [place] [address] PCP - General Family Medicine 08/26/17 [facility] 09/01/24 documented as of this encounter
--- OUTSIDE RECORDS SUMMARY | 2025-10-08 06:50 | XMS_ITS | Encounter Summary ---
Author Organization [employer] Address [address] [facility] [address] [place] [address] Care Team Providers Care Small Business Sales Representative Name Role Phone Name, Nitin PIKE Primary Care Provider [phone] Reason for Visit * Reason Comments Med Refill Encounter Details Date Type Department Care Team (Late st Contact Info) Description 07/25/2025 Refill [facility] [address] [place], [place] [phone] Name, MD Nitin [address] [place] [address] Social History Tobacco Use Types Packs/Day Years [...] EST Office Visit [facility] [address] [place] [phone] NameNitin MD [address] [place] [phone] documented as of this encounter Visit Diagnoses Not on filedocumented in this encounter Additional Health Concerns Assessment Noted Time PHQ-9 Depression Total Score: 3 04/29/20 25 9:41 AM EDT documented as of this encounter Care Teams Small Business Sales Representative Relationship Specialty Start Date End Date NameNitin MD [address] [place] [phone] PCP - General Family Medicine 08/26/17 [facility] 09/01/24 documented as of this encounter
--- OUTSIDE RECORDS SUMMARY | 2025-10-08 06:50 | XMS_ITS | Encounter Summary ---
Author Organization [employer] Address [address] [facility] [address] [place] [address] Care Team Providers Care Patient Service Rep Name Role Phone Name, Nitin PIKE Primary Care Provider [phone] Reason for Visit * Reason Comments Med Refill Encounter Details Date Type Department Care Team (Late Contact Info) Description 03/02/2023 Refill [facility] [address] [place] [phone] Karely Patiño MD [address] [place] [address] [phone] Social History Tobacco Use Types Packs/Day Years [...] Description 11/07/2025 10:00 AM EST Office Visit [facility] [address] [place] [phone] Name, MD iNtin [address] [place] [address] documented as of this encounter Visit Diagnoses Not on filedocumented in this encounter Care Teams Patient Service Rep Relationship Specialty Start Date End Date Name, MD Nitin [address] [place] [address] PCP - General Family Medicine 08/26/17 [facility] 09/01/24 documented as of this encounter
--- OUTSIDE RECORDS SUMMARY | 2025-10-08 06:50 | XMS_ITS | Encounter Summary ---
Author Organization [employer] Address [address] [facility] [address] [place] [address] Care Team Providers Care Lead Man Over All Dies In [employer] Name Role Phone Name, Nitin PIKE Primary Care Provider [phone] Reason for Visit * Reason Onset Date Comments FYI 01/21/2024 ER Follow-up 01/21/2024 Encounter Details Date Type Department Care Team ([facility] st Contact Info) Description 01/21/2024 Telephone [facility] [address] [place], [place] [phone] Name, MD Nitin [address] [place] [address] FYI; ER Follow-up Social History Tobacco Use [...] - 01/21/2024 1:54 PM EDT Message from [facility] ED noted. [facility] note sent to medical records. PCP does not rx Trazodone. Pt to f/u with psych prescriber. Pt is scheduled for f/u with pcp 02/13/24. * Telephone Encounter - Janette Huitron - 01/21/2024 9:45 AM EDT Tc from [facility] with [facility] ED calling in regards to pt. States pt was seen today for anxiety and is requesting trazodone. Will discharge pt with no medication change. Would also like to advise provider, pt was seen at [facility] [place]17 for anxiety/insomnia as well documented in this encounter Plan of Treatment Upcoming Encounters Date Type Department Care Team (Late st Contact Info) Description 11/07/2025 10:00 AM EST Office Visit [facility] [address] [place] [address] Name, MD Nitin [address] [place] [address] documented as of this encounter Visit Diagnoses Not on filedocumented in this encounter Additional Health Concerns Assessment Noted Time PHQ-9 Depression Total Score: 12 023 9:37 AM EDT documented as of this encounter Care Teams Lead Man Over All [employer] In [employer] Relationship Specialty Start Date End Date Name, MD Nitin [address] [place] [address] PCP - General Family Medicine 08/26/17 [facility] 09/01/24 documented as of this encounter
--- OUTSIDE RECORDS SUMMARY | 2025-10-08 06:50 | XMS_ITS | Encounter Summary ---
Author Organization [employer] Address [address] [facility] [address] [place] [address] Care Team Providers Care Floorhand Name Role Phone Name, Nitin PIKE Primary Care Provider [phone] Encounter Details Date Type Department Care Team ([facility] st Contact Info) Description 05/26/2023 Orders Only [facility] [address] [place] [address] Noreen Fox MD [address] [place] [address] Social History Tobacco Use Types Packs/Day Years [...] Description 11/07/2025 10:00 AM EST Office Visit [facility] [address] [place] [phone] Name, MD Nitin [address] [place] [address] documented as of this encounter Visit Diagnoses Not on filedocumented in this encounter Care Teams Floorhand Relationship Specialty Start Date End Date Name, MD Nitin [address] [place] [address] PCP - General Family Medicine 08/26/17 [facility] 09/01/24 documented as of this encounter
--- OUTSIDE RECORDS SUMMARY | 2025-10-08 06:50 | XMS_ITS | Clinical Summary ---
Author Organization [facility] Facility Address [address] [address] Care Team Providers Care Corrective Therapy Aide Name Role Phone Name, Nitin PIKE Primary Care Provider [phone] Allergies Active Allergy Reactions Criticality Noted Date [...] patient's age to complete this topic [place] [address] MCR ([id number]) [place]ILLIPS [phone] [facility] MCR ([id number]) Care Teams Corrective Therapy Aide Relationship Specialty Start Date End Date Name, MD Nitin [address] [place] [phone] PCP - General Internal Medicine 10/15/22
--- OUTSIDE RECORDS SUMMARY | 2025-10-08 06:50 | XMS_ITS | Encounter Summary ---
Author Organization [email or web address] Address [address] [facility] [address] [place] [address] Care Team Providers Care Regulatory Intern Name Role Phone Name, Nitin PIKE Primary Care Provider [phone] Encounter Details Date Type Department Care Team ([facility] Contact Info) Description 08/08/2023 Telephone [facility] MEDICINE [address] [place] [address] [phone] Name, MD Nitin [address] [place] [address] [phone] Social History Tobacco Use Types Packs/Day Years [...] [facility] [address] [place] [address] [phone] Name, MD Nitin [address] [place] [address] [phone] documented as of this encounter Visit Diagnoses Not on filedocumented in this encounter Additional Health Concerns Assessment Noted Time PHQ-9 Depression Total Score: 12 023 9:37 AM EDT documented as of this encounter Care Teams Regulatory Intern Relationship Specialty Start Date End Date Name, MD Nitin [address] [place] [address] PCP - General Family Medicine 08/26/17 [facility] 09/01/24 documented as of this encounter
--- OUTSIDE RECORDS SUMMARY | 2025-10-08 06:50 | XMS_ITS | Clinical Summary ---
Author Organization [employer] Address [address] [place] [address] [address] [place] [address] Care Team Providers Care Financial Specialist Name Role Phone Name, Nitin PIKE Primary Care Provider [phone] Allergies Active Allergy Reactions Criticality Noted Date [...] MOUTH EVERY 8 HOURS NEEDED FOR PAIN (SLOVAK LABEL) 90 tablet Active omeprazole (PriLOSEC) 20 [...] MORNING AND IN THE EVENING 60 tablet 10/04/20 25 8:07 AM EST Active meclizine (Antivert) 25 MG tabletIndications :Vertigo Take 1 tablet (25 mg) by mouth if needed in the morning, at noon, and at bedtime for dizziness for up to 10 days. 30 tablet 09/29/20 25 9:50 AM EST 2024 Active Diclofenac Sodium 1 % gelIndications:Ac anna right-sided low back pain without sciatica Apply [...] because it calms her down. I called [facility] pharmacy to attempt a med rec they instructed me that she is on med box and one week at a time prescriptions because she would break into her med boxes to take more Ambien or xanax. She is being seen by Izzy Perea at [facility]. He is aware of her behavior and [...] left I received a call from the [facility] pharmacy instructing me that she [...] Encounters Date Type Department Care Team Description 10/03/2025 Orders Only GENERIC EXTERNAL DATA DEPARTMENT Provider, Generic External Data 09/29/2025 8:40 AM EST Office Visit [facility] [address] [place] [address] Zach Javier MD Acute right-sided low back pain without sciatica (Primary Dx); Vertigo 09/29/2025 Travel 09/28/2025 Refill [facility] [address] [place] [address] Name, MD Nitin Vitamin D deficiency 09/27/2025 Refill [facility] [address] [place] [address] Nitin Echevarria MD 09/22/[address] [address] Nitin Echevarria MD Nurse Triage 09/22/2025 Orders Only GENERIC EXTERNAL DATA DEPARTMENT Provider, Generic External Data 09/21/[address] [address] Nitin Echevarria MD Request For Order(s); Referral 09/19/2025 Refill [facility] [address] [place] [address] Nitin Echevarria MD 09/19/2025 Orders Only GENERIC EXTERNAL DATA DEPARTMENT Provider, Generic External Data 09/18/2025 Orders Only [facility] External Provider, [facility] 09/17/2025 Orders Only GENERIC EXTERNAL DATA DEPARTMENT Provider, Generic External Data 09/09/[address] [address] Thea Warren FNP Results 09/06/2025 1:30 PM EDT Office Visit [address] [address] Thea Warren, E[employer] REPAIRER SUPERVISOR Acute pain of left knee (Primary Dx); Urinary frequency; Acute cystitis without hematuria 09/06/2025 Orders Only [address] [address] Thea Warren FNP 09/06/2025 Travel 09/05/[address] [address] Nitin Echevarria MD Chart Prep 09/03/2025 Orders Only GENERIC EXTERNAL DATA DEPARTMENT Provider, Generic External Data 08/30/2025 Patient Outreach [facility] [address] [place] [address] Nitin Echevarria MD Pre-visit Planning ([facility] unable to reach) 08/24/[address] [address] Nitin Echevarria MD Referral 08/24/[address] [address] Nitin Echevarria MD Verbal Order 08/22/2025 Orders Only [facility] External Provider, [facility] 08/18/2025 Orders Only GENERIC EXTERNAL DATA DEPARTMENT Provider, Generic External Data 08/17/2025 Refill [facility] MEDIC[facility] [address] [place] [address] Nitin Echevarria MD 08/17/2025 Refill [facility] [address] [place] [address] Miryam Riley NP Hypertension, unspecified type 08/15/2025 Refill [facility] [address] [place] [address] Nitin Echevarria MD Heartburn 08/14/2025 Refill [facility] [address] [place], [place] [phone] Nitin Echevarria MD Heartburn; Vitamin D deficiency 08/09/2025 11:15 AM EDT Office Visit [facility] MEDICINE [address] [place] [phone] Nitin Echevarria MD Generalized anxiety disorder with panic attacks (Primary Dx); Encounter for immunization; Chronic bilateral low back pain without sciatica 08/09/2025 Travel 08/01/2025 Refill [facility] [address] [place] [address] Nitin Echevarria MD Vitamin D deficiency 07/28/2025 Orders Only GENERIC EXTERNAL DATA DEPARTMENT Provider, Generic External Data 07/27/2025 Orders Only [facility] External Provider, [facility] 07/26/2025 Orders Only GENERIC EXTERNAL DATA DEPARTMENT Provider, Generic External Data 07/26/2025 Telephone [facility] [address] [place] [address] Nitin Echevarria MD ER Follow-up 07/25/2025 Refill [facility] MED & PEDS [address] [place] [address] Nitin Echevarria MD 07/25/2025 Refill [facility] MEDICINE [address] [place], [place] [phone] Nitin Echevarria MD 07/18/2025 Refill [facility] [address] [place], [place] [phone] Miryam Riley NP 07/18/2025 Orders Only GENERIC EXTERNAL DATA DEPARTMENT Provider, Generic External Data 07/17/2025 Refill [facility] MED[facility] [address] [place] [phone] Name, MD Nitin Hypertension, unspecified type from Last 3 Months Immunizations Immunization Administration [...] Visit [facility] [address] [place] [address] Name, MD Nitin [address] [place] [address] Health Maintenance Due Date Last Done Comments [...] URINE, ROUTINE Routine 10/03/2025 12:00 AM EST BASIC METABOLIC PANEL Routine 09/22/2025 7:21 AM [...] Reflex to Culture (10/03/2025 11:18 PM EST) Only the most recent of5 resultswithin the time period is included. Color Urine Yellow [facility] Appearance Urine Clear [facility] PH 6.0 5.0 - 9.0 [facility] Glucose Urine UA Negative Negative mg/dL [facility] Urine Blood Negative Negative [facility] Specific Gregory - Urine 1.015 1.005 - 1.025 [facility] Urine Protein Negative Neg-Trace mg/dL [facility] Urine Ketones Negative Negative mg/dL [facility] Nitrite Urine Negative Negative [facility] Leukocyte Esterase Urine Moderate (2+)(A) Negative [facility] RBC Urine 0-2 0 - 2 /HPF [facility] Urine WBC 11-20(A) 0 - 5 /HPF [facility] Urine Squamous Epithelial Cell 0-2 0 - 2 /HPF [facility] Urine Bacteria None Seen None Seen [facility] Hyaline Casts, Urine 0-2 0 - 2 /LPF [facility] 10/03/2025 11:1 8 PM EST 10/03/2025 11:21 PM EST Narrative [facility] - 10/03/2025 11:29 PM EST [id number], Clean Catch us Generic External Data Provider LAB URINE ORDERAB LES Final Result [facility] [address] [place] [phone] * Culture, Urine, Routine (10/03/2025 12:00 AM EST) Only the most recent of6 resultswithin the time period is included. Urine Urine specimen obtained by clean catch procedure / Unknown 10/03/2025 10/03/2025 Comment:CC Narrative [facility] - 10/05/2025 11:28 AM EST Urine Culture Report Result Urine Culture 10,000 to 50,000 cfu/ml Urine Culture Mixed bacterial jann characteristic of Urine Culture urogenital contamination. Specimen Source: Urine clean catch us Generic External Data Provider LAB MICROBIOLOGY - GENERAL ORDERABLES Final Result [facility] [address] [place] [phone] [phone] * (ABNORMAL) CBC auto differential (09/22/2025 7:21 AM EST) Only the most recent of6 resultswithin the time period is included. White Blood Count 6.6 4.8 - 10.8 X10*3/uL [facility] Red Blood Count 4.39 4.20 - 5.50 X10*6/uL [facility] Hemoglobin 12.2 12.0 - 16.0 g/dl [facility] Hematocrit 37.3 37.0 - 47.0 % [facility] Mean Corpuscular Volume 85.0 80.0 - 98.0 fL [facility] Mean Corpuscular Hemoglobin 27.8 27.0 - 33.0 pg [facility] Mean Corpuscular HGB Conc 32.7 31.0 - 35.0 g/dl [facility] Red Cell Distribution Width 13.8 11.0 - 16.0 % [facility] Platelet Count 295 160 - 400 X10*3/uL [facility] Mean Platelet Volume 8.1(L) 9.4 - 12.3 fL [facility] Neutrophils Percent Auto 70.6 45 - 73 % [facility] Imm Gran Pct Auto 0.5(H) 0.0 - 0.4 % [facility] Lymphocytes Percent Auto 18.3(L) 20 - 40 % [facility] Monocytes Percent Auto 9.4 2 - 11 % [facility] Eosinophils Percent Auto 0.6 0 - 4 % [facility] Basophils Percent Auto 0.6 0 - 2 % [facility] NRBC Pct Auto 0.0 0.0 - 0.2 /100WBC [facility] Neutrophils Absolute Auto 4.7 2.0 - 8.3 x10*3/uL [facility] Imm Gran Abs Auto 0.03 0.00 - 0.03 X10*3/uL [facility] Lymphocytes Absolute Auto 1.2 1.2 - 4.9 X10*3/uL [facility] Monocytes Absolute Auto 0.6 0.1 - 1.2 X10*3/uL [facility] Eosinophils Absolute Auto 0.0 0.0 - 0.4 X10*3/uL [facility] Basophils Absolute Auto 0.0 0.0 - 0.2 X10*3/uL [facility] NRBC Abs Auto 0.000 0.0 - 0.012 X10*3/uL [facility] 09/22/2025 7:21 AM EST 09/22/2025 7:23 AM EST us Generic External Data Provider LAB BLOOD ORDERAB LES Final Result [facility] [address] [place] [phone] * (ABNORMAL) Basic Metabolic Panel (09/22/2025 7:21 AM EST) Only the most recent of3 resultswithin the time period is included. Sodium 137 135 - 145 mmol/L [facility] Potassium 4.7 3.3 - 5.1 mmol/L [facility] Chloride 100 96 - 108 mmol/L [facility] Carbon Dioxide 29 22 - 29 mmol/L [facility] Anion Gap 13 12 - 20 [facility] Urea Nitrogen (BUN) 18(H) 9 - 16 mg/dL [facility] Creatinine, Serum 0.85 0.5 - 1.4 mg/dL [facility] Creatinine Clr Calc Pharmacy 56.1 [facility] Comment:Provided height and weight: 162.56 cm,89.3 kg.eGFR (calculated from the MDRD study equation) and eCrCl(calculated from the Cockcroft-Gault equation) are based ondifferent parameters and may not yield comparable results.If eCrCl result is absurd, please check patient'sheight/weight. Estimated Glomerular Filt Rate >60 [facility] Comment:Chronic Kidney Disea se: Estimated GFR < 60 mL/min/1.31h1Xpdazp Kidney Disease: Estimated GFR < 15 mL/min/1.73m2 Glucose 105 60 - 115 mg/dL [facility] Calcium 10.0 8.4 - 10.2 mg/dL [facility] 09/22/2025 7:21 AM EST 09/22/2025 7:23 AM EST us Generic External Data Provider LAB BLOOD ORDERAB LES Final Result Performing Organization Address City/State/[facility] Co de Phone Number [facility] [address] [place] [phone] * CT Head w/o Contrast (09/19/2025 3:43 AM EST) Only the most recent of2 resultswithin the time period is included. Anatomical Region Laterality Modality Head, Neck Computed Tomogra phy 09/19/2025 3:43 AM EST Narrative 09/19/2025 3:45 AM EST [address] [address] [address] Scan Report Signed Patient: Noreen Wing MR#: [id number] : 1945 Acct:[id number] Age/Sex: 79 / F ADM Date: 09/18/25 Loc: HO.ED Attending Dr: Ordering Physician: Marium Ny DO Date of Service: 09/19/25 Procedure(s): CT head/brain wo IV con Accession Number(s): [id number] cc: Marium Ny DO; [facility] Report Number: [id number]: Total DLP = 747.02 mGy-cm Reason for [...] in OV> 09/19/25343 DD/ 2 TD/TT: 09/19/25342 Lacemaker: Procedure Note Donotuseinterpreter, Image - 09/19/[address] [place] [address] [address] Scan Report Signed Patient: Noreen WingMR#: [id number] : 3Acct:[id number] Age/Sex: 79 / FADM Date: 09/18/25 Loc: HO.ED Attending Dr: Ordering Physician: Marium Ny DO Date of Service: 09/19/25 Procedure(s): CT head/brain wo IV con Accession Number(s): [id number] cc: Marium Ny DO; [facility] Report Number: [id number]: Total DLP = 747.02 mGy-cm Reason for [...] in OV> 09/19/25343 DD/ 2 TD/TT: 09/19/25342 Lacemaker: [facility] External Provider IMG CT PROCEDURES Edited Result - Final * CT Cervical Spine w/o Contrast (09/19/2025 3:42 AM EST) Only the most recent of2 resultswithin the time period is included. Anatomical Region Laterality Modality Spine, C-spine Computed Tomogra phy 09/19/2025 3:42 AM EST Narrative 09/19/2025 3:43 AM EST [place] [address] CT Scan Report Signed Patient: Noreen Wing MR#: [id number] : 1945 Acct:[id number] Age/Sex: 79 / F ADM Date: 09/18/25 Loc: HO.ED Attending Dr: Ordering Physician: Marium Ny DO Date of Service: 09/19/25 Procedure(s): CT cervical spine wo IV con Accession Number(s): [id number] cc: Marium Ny DO; [facility] Report Number: [id number]: Total DLP = 428.77 mGy-cm Reason for Exam: fall, head trauma CLINICAL HISTORY: fall, head trauma CT cervical spine without contrast Comparison: CT/SR - CT CERVICAL SPINE WO IV CON - 09/03/25 13:35 EDT Findings: The alignment of the cervical spine is normal. There is no fracture. There is kfce-bw-caicosad C5-6 degenerative disc disease. There are posterior osteophytes at C5-6 probably causing case-gi-hylagvzq central canal stenosis. There is multilevel facet [...] in OV> 09/19/25341 DD/ 1 TD/TT: 09/19/25341 Lacemaker: Procedure Note Donotuseinterpreter, Image - 09/19/[address] [place] [address] [address] Scan Report Signed Patient: Jennifer Wing#: [id number] : 1945cct:[id number] Age/Sex: 79 / FADM Date: 09/18/25 Loc: HO.ED Attending Dr: Ordering Physician: Marium Ny DO Date of Service: 09/19/25 Procedure(s): CT cervical spine wo IV con Accession Number(s): [id number] cc: Marium Ny DO; [facility] Report Number: [id number]: Total DLP = 428.77 mGy-cm Reason for Exam: fall, head trauma CLINICAL HISTORY: fall, head trauma CT cervical spine without contrast Comparison: CT/SR - CT CERVICAL SPINE WO IV CON - 09/03/25 13:35 EDT Findings: The alignment of the cervical spine is normal. There is no fracture. There is dcos-rr-ursjdmux C5-6 degenerative disc disease. There are posterior osteophytes at C5-6 probably causing koyx-vb-grjvuelt central canal stenosis. There is multilevel facet [...] in OV> 09/19/25341 DD/ 1 TD/TT: 09/19/25341 Lacemaker: [facility] External Provider IMG CT PROCEDURES Edited Result - Final * High Sensitivity Troponin I (09/19/2025 12:26 AM EST) Only the most recent of6 resultswithin the time period is included. TROPONIN I HIGH SENSITIVITY <2.7 <3.5 - 17.0 ng/L [facility] Comment:The Mckeon high sens itivity Troponin-I results should beused in conjunction with other diagnostic information suchas ECG, clinical observations and information, and patientsymptoms to aid in the diagnosis of [place]. 09/19/2025 12:2 6 AM EST 09/19/2025 12:28 AM EST Generic External Data Provider LAB BLOOD ORDERAB LES Final Result Performing Organization Address City/State/[facility] Co de Phone Number [facility] [address] [place] [phone] * Prothrombin Time-INR (09/19/2025 12:26 AM EST) Only the most recent of2 resultswithin the time period is included. Prothrombin Time 12.5 11.2 - 13.5 SEC [facility] INTERNATIONAL NORM RATIO 1.0 0.9 - 1.1 [facility] Comment:INTERNATIONAL NORMAL IZED RATIO (INR) [...] 6 AM EST 09/19/2025 12:28 AM EST Generic External Data Provider LAB BLOOD ORDERAB LES Final Result [facility] [address] [place] [phone] * (ABNORMAL) Comprehensive Metabolic Panel (09/19/2025 12:26 AM EST) Only the most recent of4 resultswithin the time period is included. Sodium 136 135 - 145 mmol/L [facility] Potassium 4.1 3.3 - 5.1 mmol/L [facility] Chloride 101 96 - 108 mmol/L [facility] Carbon Dioxide 25 22 - 29 mmol/L [facility] Anion Gap 14 12 - 20 [facility] Urea Nitrogen (BUN) 33(H) 9 - 16 mg/dL [facility] Creatinine, Serum 0.99 0.5 - 1.4 mg/dL [facility] Creatinine Clr Calc Pharmacy 45.4 [facility] Comment:Provided height and weight: 157.48 cm,86.183 kg.eGFR (calculated from the MDRD study equation) and eCrCl(calculated from the Cockcroft-Gault equation) are based ondifferent parameters and may not yield comparable results.If eCrCl result is absurd, please check patient'sheight/weight. Estimated Glomerular Filt Rate 54 [facility] Comment:Chronic Kidney Disea se: Estimated GFR < 60 mL/min/1.77b8Hugesj Kidney Disease: Estimated GFR < 15 mL/min/1.73m2 Glucose 108 60 - 115 mg/dL [facility] Calcium 8.9 8.4 - 10.2 mg/dL [facility] Bilirubin, Total 0.3 0.0 - 1.0 mg/dL [facility] Aspartate Amino Transferase 26 5 - 31 U/L [facility] Alanine Aminotransferase 14 0 - 31 U/L [facility] Total Protein 7.6 6.5 - 8.0 g/dL [facility] Albumin Level 4.1 3.5 - 5.0 g/dL [facility] Alkaline Phosphatase 92 39 - 117 U/L [facility] 09/19/2025 12:2 6 AM EST 09/19/2025 12:28 AM EST us Generic External Data Provider LAB BLOOD ORDERAB LES Final Result Performing Organization Address City/State/[facility] Co de Phone Number [facility] [address] [place] [phone] * XR Knee 4+ Views Left (09/18/2025 3:36 PM EST) Only the most recent of2 resultswithin the time period is included. Anatomical Region Laterality Modality Lower Extremities, Knee Left Radiogra phic Imaging 09/18/2025 3:36 PM EST Narrative 09/18/2025 3:39 PM EST [address] [address] XRay Report Signed Patient: Noreen Wing MR#: [id number] : 1945 Acct:[id number] Age/Sex: 79 / F ADM Date: 09/18/25 Loc: HO.ED Attending Dr: Ordering Physician: Cuco Amador Date of Service: 09/18/25 Procedure(s): XR knee LT 4V Accession Number(s): [id number] cc: Cuco Amador; Name,Nitin PIKE Reason for [...] 09/18/25 1538 DD/ 1536 TD/TT: 09/18/25 1536 Lacemaker: Procedure Note Donotuseinterpreter, Image - 09/18/[address] [address] XRay Report Signed Patient: Noreen WingMR#: [id number] : 1945cct:[id number] Age/Sex: 79 / FADM Date: 09/18/25 Loc: HO.ED Attending Dr: Ordering Physician: Cuco Amador Date of Service: 09/18/25 Procedure(s): XR knee LT 4V Accession Number(s): [id number] cc: Cuco Amador; Name,Nitin PIKE Reason for [...] 09/18/25 1538 DD/ 1536 TD/TT: 09/18/25 1536 Lacemaker: [facility] External Provider IMG XR PROCEDURES Edited Result - Final * Glucose, Whole Blood (09/17/2025 7:24 AM EST) Glucose, Whole Blood 98 60 - 115 mg/dL [facility] Comment:METER #: [id number] 09/17/2025 7:24 AM EST 09/17/2025 7:28 AM EST Generic External Data Provider LAB BLOOD ORDERAB LES Final Result [facility] [address] [place] [phone] * POCT Urinalysis (09/06/2025 1:32 PM [...] 09/06/2025 1:32 PM EDT us Thea Briana ELECTRONIC CONTROLS REPAIRER SUPERVISOR POINT OF CARE TEST ENTER/EDIT ORDERABLES Final Result * Magnesium (09/03/2025 2:08 PM EDT) Pathologist [facility] Magnesium 2.0 1.6 - 2.6 mg/dL [facility] 09/03/2025 2:08 PM EDT 09/03/2025 2:12 PM EDT us Generic External Data Provider LAB BLOOD ORDERAB LES Final Result Performing Organization Address City/State/[facility] Co de Phone Number [facility] [address] [place] [phone] [phone] * CTA Chest PE Protocal (07/28/2025 8:35 PM EDT) Only the most recent of2 resultswithin the time period is included. Anatomical Region Laterality Modality Body, Chest Computed Tomogra phy 07/28/2025 8:35 PM EDT Narrative 07/28/2025 8:36 PM EDT [address] [address] [address] Scan Report Signed Patient: Noreen Wing MR#: [id number] : 1945 Acct:[id number] Age/Sex: 79 / F ADM Date: 07/28/25 Loc: HO.ED Attending Dr: Ordering Physician: Cuco Amador Date of Service: 07/28/25 Procedure(s): CT angio chest PE protocol Accession Number(s): [id number] cc: Cuco Amador; Name,Nitin PIKE Report Number: [id number]: Total DLP = 311.00 mGy-cm Reason for [...] in OV> 07/28/252034 DD/ 34 TD/TT: 07/28/252034 Lacemaker: Procedure Note Donotuseinterpreter, Image - 07/28/[address] [place] [address] [address] Scan Report Signed Patient: Noreen WingMR#: [id number] : 3Acct:[id number] Age/Sex: 79 / FADM Date: 07/28/25 Loc: HO.ED Attending Dr: Ordering Physician: Cuco Amador Date of Service: 07/28/25 Procedure(s): CT angio chest PE protocol Accession Number(s): [id number] cc: Cuco Amador; Name,Nitin PIKE Report Number: [id number]: Total DLP = 311.00 mGy-cm Reason for [...] in OV> 07/28/252034 DD/ 34 TD/TT: 07/28/252034 Lacemaker: [facility] External Provider IMG CT PROCEDURES Final Result * CT Abdomen Pelvis w/ Contrast (07/28/2025 8:01 PM EDT) Anatomical Region Laterality Modality Body, Pelvis, Abdomen Computed T omography 07/28/2025 8:01 PM EDT Narrative 07/28/2025 8:03 PM EDT [place] [address] CT Scan Report Signed Patient: Noreen Wing MR#: [id number] : 1945 Acct:[id number] Age/Sex: 79 / F ADM Date: 07/28/25 Loc: HO.ED Attending Dr: Ordering Physician: Cuco Amador Date of Service: 07/28/25 Procedure(s): CT abdomen pelvis w IV con Accession Number(s): [id number] cc: Cuco Amador; Name,Nitin PIKE Report Number: [id number]: Total DLP = 539.64 mGy-cm Reason for [...] in OV> 07/28/252001 DD/ 00 TD/TT: 07/28/252000 Lacemaker: Procedure Note Donotuseinterpreter, Image - 07/28/[address] [place] [address] [address] Scan Report Signed Patient: Noreen WingMR#: [id number] : 1945cct:[id number] Age/Sex: 79 / FADM Date: 07/28/25 Loc: HO.ED Attending Dr: Ordering Physician: Cuco Amador Date of Service: 07/28/25 Procedure(s): CT abdomen pelvis w IV con Accession Number(s): [id number] cc: Cuco Amador; Name,Nitin PIKE Report Number: [id number]: Total DLP = 539.64 mGy-cm Reason for [...] in OV> 07/28/252001 DD/ 00 TD/TT: 07/28/252000 Lacemaker: [facility] External Provider IMG CT PROCEDURES Final Result * Partial Thromboplastin Time, Activated (APTT) (07/28/2025 5:01 PM EDT) Partial Thromboplastin Time 31.4 26.7 - 34.1 SEC [facility] 07/28/2025 5:01 PM EDT 07/28/2025 5:05 PM EDT Generic External Data Provider LAB BLOOD ORDERAB LES Final Result Performing Organization Address [facility] Co de Phone Number [facility] [address] [place] [phone] * Lipase (07/28/2025 5:01 PM EDT) Lipase 31 8 - 78 U/L [facility] 07/28/2025 5:01 PM EDT 07/28/2025 5:05 PM EDT Generic External Data Provider LAB BLOOD ORDERAB LES Final Result Performing Organization Address [facility] Co de Phone Number [facility] [address] [place] [phone] * POCT HGB A1C (01/10/2025 11:02 AM EST) Hemoglobin A1C 5.1 4.0 - 6.0 % QC Media Lot # [id number] Lot# Expiration Date Blood 01/10/2025 11:0 2 AM EST Result [facility] Nitin Echevarria MD POINT OF CARE TEST [...] LDL-C. Jack SS et al. JITENDRA. 2013;310(19): 7579-1928 (http://education.SportsPursuit.Docurated/faq/QTB087) Non-HDL Cholesterol 88 <130 mg/dL (calc) CONVERTED [...] Most Recently Relevant to Health Maintenance Insurance [employer] (HMO D-SNP) [place]IPS [id number] Care Teams Financial Specialist Relationship Specialty Start Date End Date Name, MD Nitin [address] [place] [phone] PCP - General Family Medicine 08/26/17 [facility] 09/01/24
--- OUTSIDE RECORDS SUMMARY | 2025-10-08 06:50 | XMS_ITS | Encounter Summary ---
Author Organization [employer] Address 75 [facility] [address] [place] [address] Care Team Providers Care Certified Corporate Travel Executive Name Role Phone Name, Nitin PIKE Primary Care Provider [phone] Reason for Visit * Reason Onset Date Comments Call Back Request 03/14/2025 Encounter Details Date Type Department Care Team ([facility] st Contact Info) Description 03/14/2025 Telephone [facility] MEDICINE [address] [place], [place] [phone] Name, MD Nitin [address] [place] [address] Call Back Request Social History Tobacco Use [...] Description 11/07/2025 10:00 AM EST Office Visit [facility] MEDICINE [address] [place] [address] Name, MD Nitin [address] [place] [address] documented as of this encounter Visit Diagnoses Not on filedocumented in this encounter Additional Health Concerns Assessment Noted Time PHQ-9 Depression Total Score: 6 02/13/20 9:14 AM EDT documented as of this encounter Care Teams Certified Corporate Travel Executive Relationship Specialty Start Date End Date Name, MD Nitin [address] [place] [address] PCP - General Family Medicine 08/26/17 [facility] 09/01/24 documented as of this encounter
--- OUTSIDE RECORDS SUMMARY | 2025-10-08 06:50 | XMS_ITS | Encounter Summary ---
Author Organization [employer] Address 75 [facility] [address] [place] [address] Care Team Providers Care Contract Post Office Clerk Name Role Phone Name, Nitin PIKE Primary Care Provider [phone] Reason for Visit * Reason Onset Date Comments Verbal Orders 01/02/2024 Encounter Details Date Type Department Care Team ([facility] st Contact Info) Description 01/02/2024 Telephone [facility] MEDICINE 230 [place], [place] [phone] Name, MD Nitin 230 [place] [address] Verbal Orders Social History Tobacco Use Types [...] No answer. LVM to call back on [phone]. * Telephone Encounter - Melany Santos RN - 01/06/2024 10:25 AM EST Please review and advise for below request. * Telephone Encounter - Deana Bazzi - 01/02/2024 3:44 PM EST Tc from [facility] with S requesting verbal orders for discharge pt from Occupational Therapy, due to pt refuses services, please contact [facility] at [phone]. documented in this encounter Plan of Treatment Upcoming Encounters Date Type Department Care Team (Late st Contact Info) Description 11/07/2025 10:00 AM EST Office Visit [facility] MEDICINE [address] [place] [address] Name, MD Nitin [address] [place] [address] documented as of this encounter Visit Diagnoses Not on filedocumented in this encounter Additional Health Concerns Assessment Noted Time PHQ-9 Depression Total Score: 12 023 9:37 AM EDT documented as of this encounter Care Teams Contract Post Office Clerk Relationship Specialty Start Date End Date Name, MD Nitin [address] [place] [address] PCP - General Family Medicine 08/26/17 [facility] 09/01/24 documented as of this encounter
--- OUTSIDE RECORDS SUMMARY | 2025-10-08 06:50 | XMS_ITS | Encounter Summary ---
Author Organization [employer] Address 75 [facility] 7[address] [place] [address] Care Team Providers Care Building Official Name Role Phone Name, Nitin PIKE Primary Care Provider Reason for Visit * Reason Onset Date Comments Durable Medical Equipment 12/09/2023 Encounter Details Date Type Department Care Team ([facility] st Contact Info) Description 12/09/2023 Telephone [facility] MEDICINE 230 [place], [place] [phone] Name, MD Nitin 230 [place], [place] [phone] Durable Medical Equipment Social History Tobacco Use [...] 10:11 AM EST DME rx faxed to [facility] as requested. RN will consult with S nurse and provide referral. * Telephone Encounter - Fozia Jacob RN - 12/09/2023 4:58 PM EST Call returned to [facility] [phone] ext. [phone]. [facility] states that [facility] attempted to provide PT at home but pt refused. [facility] pt is requesting outpatient PT. [facility] pt is seeing a counselor more regularly and has agreed to VNA referral. Reports pt has had 3 falls in the past 2 months. [facility] states [facility] no longer has visiting nurses. [facility] recommends [facility] or [facility] for VNA referral. [facility] also requesting DME rx for rollator walker and a straight cane. Requests that DME rx be faxed to [phone]. Advised requests will be sent to pcp. * Telephone Encounter - Adithya Solorzano - 12/09/2023 4:25 PM EST Tc from [facility] requesting DME: Rollator walker . documented in this encounter Plan of Treatment Upcoming Encounters Date Type Department Care Team (Late st Contact Info) Description 11/07/2025 10:00 AM EST Office Visit [facility] MEDICINE [address] [place] [address] Name, MD Nitin [address] [place] [address] documented as of this encounter Visit Diagnoses Not on filedocumented in this encounter Additional Health Concerns Assessment Noted Time PHQ-9 Depression Total Score: 12 023 9:37 AM EDT documented as of this encounter Care Teams Building Official Relationship Specialty Start Date End Date Name, MD Nitin [facility] [place] [address] PCP - General Family Medicine 08/26/17 [facility] 09/01/24 documented as of this encounter
--- OUTSIDE RECORDS SUMMARY | 2025-10-08 06:50 | XMS_ITS | Encounter Summary ---
Author Organization [employer] Address 75 [facility] 7[address] [place] [address] Care Team Providers Care Gang Knife Fish Chopper Name Role Phone Name, Nitin PIKE Primary Care Provider [phone] Encounter Details Date Type Department Care Team (Late st Contact Info) Description 11/06/[address] [facility] CHC MED & PEDS [address] [place], [place] [phone] Lisha Kelly LPN Social History Tobacco Use [...] Description 11/07/2025 10:00 AM EST Office Visit [facility] MEDICINE 230 [place] [address] NameNitin MD 230 [place] [address] documented as of this encounter Visit Diagnoses Not on filedocumented in this encounter Care Teams Gang Knife Fish Chopper Relationship Specialty Start Date End Date Nitin Echevarria MD 230 [place] [address] PCP - General Family Medicine 08/26/17 [facility] 09/01/24 documented as of this encounter
--- OUTSIDE RECORDS SUMMARY | 2025-10-08 06:50 | XMS_ITS | Encounter Summary ---
Author Organization [employer] Address 75 [facility] [address] [place] [address] Care Team Providers Care Qa Engineer Name Role Phone Name, Nitin PIKE Primary Care Provider [phone] Encounter Details Date Type Department Care Team ([facility] Contact Info) Description 12/17/2022 Orders Only [facility] CHC MED & PEDS [address] [place], [place] [phone] Lisha Kelly LPN Social History Tobacco Use [...] EST Office Visit [facility] MEDICINE [address] [place] [address] Nitin Echevarria MD 230 [place] [address] documented as of this encounter Visit Diagnoses Not on filedocumented in this encounter Care Teams Qa Engineer Relationship Specialty Start Date End Date NameNitin MD 230 [place] [address] PCP - General Family Medicine 08/26/17 [facility] 09/01/24 documented as of this encounter
--- OUTSIDE RECORDS SUMMARY | 2025-10-08 06:50 | XMS_ITS | Encounter Summary ---
Author Organization [employer] Address 75 [facility] 7[address] [place] [address] Care Team Providers Care Director Patient Accounting Name Role Phone Name, Nitin PIKE Primary Care Provider [phone] Reason for Visit * Reason Onset Date Comments Results 08/29/2023 Encounter Details Date Type Department Care Team ([facility] st Contact Info) Description 08/29/2023 Telephone [facility] MEDICINE [address] [place], [place] [phone] Name, MD Nitin 230 [place] [address] Results Social History Tobacco Use Types Packs/Day [...] 09/01/2023 11:51 AM EDT Pt evaluated in [facility] today and is scheduled with pcp 09/03/23. * Telephone Encounter - Janette Huitron - 08/29/2023 4:06 PM EDT Tc from pt requesting a call in regards to urine results. Please contact pt at [phone] (Italian) documented in this encounter Plan of Treatment Upcoming Encounters Date Type Department Care Team (Late st Contact Info) Description 11/07/2025 10:00 AM EST Office Visit [facility] MEDICINE [address] [place] [address] Name, MD Nitin [address] [place] [address] documented as of this encounter Visit Diagnoses Not on filedocumented in this encounter Additional Health Concerns Assessment Noted Time PHQ-9 Depression Total Score: 12 023 9:37 AM EDT documented as of this encounter Care Teams Director Patient Accounting Relationship Specialty Start Date End Date Name, MD Nitin [address] [place] [address] PCP - General Family Medicine 08/26/17 [facility] 09/01/24 documented as of this encounter
--- OUTSIDE RECORDS SUMMARY | 2025-10-08 06:50 | XMS_ITS | Encounter Summary ---
Author Organization [employer] Address 75 [facility] 7[address] [place] [address] Care Team Providers Care Manager Strategic Marketing Name Role Phone Name, Nitin PIKE Primary Care Provider [phone] Reason for Visit * Reason Comments Med Refill Encounter Details Date Type Department Care Team ([facility] st Contact Info) Description 04/01/2024 Refill [facility] MEDICINE 230 [place], [place] [phone] Name, MD Nitin 230 [place] [address] Rash Social History Tobacco Use Types Packs/Day [...] EST Office Visit [facility] MEDICINE [address] [place] [address] NameNitin MD [address] [place] [address] documented as of this encounter Visit Diagnoses Diagnosis Rash Rash and other nonspecific skin eruption documented in this encounter Additional Health Concerns Assessment Noted Time PHQ-9 Depression Total Score: 6 02/13/20 24 9:14 AM EDT documented as of this encounter Care Teams Manager Strategic Marketing Relationship Specialty Start Date End Date NameNitin MD [address] [place] [address] PCP - General Family Medicine 08/26/17 [facility] 09/01/24 documented as of this encounter
--- OUTSIDE RECORDS SUMMARY | 2025-10-08 06:50 | XMS_ITS | Encounter Summary ---
Author Organization [employer] Address 75 [facility] 7[address] [place] [address] Care Team Providers Care Corporate Real Estate Specialist Name Role Phone Name, Nitin PIKE Primary Care Provider [phone] Reason for Visit * Reason Onset Date Comments Order(s) 12/09/2023 Encounter Details Date Type Department Care Team ([facility] Contact Info) Description 12/09/2023 Telephone [facility] MEDICINE 230 [place], [place] [phone] Name, MD Nitin 230 [place], [place] [phone] Order(s) Social History Tobacco Use Types Packs/Day [...] orders. If any questions please contact Noreen [phone]. documented in this encounter Plan of Treatment Upcoming Encounters Date Type Department Care Team (Late st Contact Info) Description 11/07/2025 10:00 AM EST Office Visit [facility] MEDICINE [address] [place] [address] Name, MD Nitin [address] [place] [address] documented as of this encounter Visit Diagnoses Not on filedocumented in this encounter Additional Health Concerns Assessment Noted Time PHQ-9 Depression Total Score: 12 023 9:37 AM EDT documented as of this encounter Care Teams Corporate Real Estate Specialist Relationship Specialty Start Date End Date Name, MD Nitin [address] [place] [address] PCP - General Family Medicine 08/26/17 [facility] 09/01/24 documented as of this encounter
--- OUTSIDE RECORDS SUMMARY | 2025-10-08 06:50 | XMS_ITS | Data Portability ---
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 She called today because she insists on having the catheter removed. It was removed by the machine stamper with the understand ing that if she can't void, she will need to go the the ER. The patient agreed with this plan. [id number] Rohit Benton MD [facility] - [address] [address] 02/06/2024 15:33:16 02/09/2024 18:20:42 Chronic retention of urine [id number] R33.8 Has bunn catheter which was recently [...] [employer] Member ID Guarantor Name 02/09/2024 1 [facility] - DOS ON OR AFTER 2023 - DUAL ELIGIBLE - LONGTERM OPTIONS AND ONE CARE (MEDICARE REPLACEMENT/ADV ANTAGE - HMO) Noreen Wing [id number] Noreen Wing Notes Date Note Type Note Provider Name and Address Organization Details Recorded Time 01/31/2024 text/html ROS as noted in the HPI [facility] Nurse Triage Notes (Joana Dominique): Reason For Request: Bunn catheter malfunction/painful Chief Complaints: UTI/Pyelonephritis, Equipment-Related Allergies: No Known Comments: Greenlandic speaking member who denies any PMH, denies [...] KAYE Verified name//address Epifanio Mcintyre MD [address] [facility], [place], [address], [employer] 01/31/2024 19:05:57 02/06/2024 text/html ROS as noted in the HPI HPI: Member asked for HV tomorrow after 10 AM if possible. Treated at the [facility] ER today, for F/u leaking, stated is [...] son Jame Wing. Member is 78 y/o Greenlandic speaking female who [place] [facility] with her son. Member has multiple [...] sees her BH counselor weekly and Prescriber SHIPPING AND RECEIVING WEIGHER [place] monthly if needed or every 2-3 months, .................... .................... .................... .................... .................... .................... .................... . [facility] Nurse Triage Notes (Zafar Irving): Comments: Reviewed HPI .................... .................... .................... .................... .................... .................... .................... . Design Specialist Note From [place]: Pt sts doesn [...] stable. Urine clear and light yellow. [facility] contacted and advised pt to rest and advised to make sure she goes to appt Friday. Pt son was used as outpatient surgery rn. Pt education on signs indicating the ER. Design Specialist Allergies: Clindamycin .................... .................... .................... .................... .................... .................... .................... . Disposition: Fulfilled Rohit Benton MD [address] [facility], [place], [address], [employer] 02/06/2024 17:58:19 OBGyn Episode No OBEpisode recorded.
--- OUTSIDE RECORDS SUMMARY | 2025-10-08 06:50 | XMS_ITS | Encounter Summary ---
Author Organization [employer] Address 75 [facility] [address] [place] [address] Care Team Providers Care User Support Analyst Name Role Phone Name, Nitin PIKE Primary Care Provider [phone] Reason for Visit * Reason Comments Med Refill Encounter Details Date Type Department Care Team ([facility] st Contact Info) Description 06/28/2024 Refill [facility] [address] [place], [place] [phone] Mel Anguiano FNP [address] [place] [address] Social History Tobacco Use Types Packs/Day Years [...] [facility] MEDICINE [address] [place] [address] Name, MD Nitin [address] [place] [address] documented as of this encounter Visit Diagnoses Not on filedocumented in this encounter Additional Health Concerns Assessment Noted Time PHQ-9 Depression Total Score: 6 02/13/20 24 9:14 AM EDT documented as of this encounter Care Teams User Support Analyst Relationship Specialty Start Date End Date Name, MD Nitin [address] [place] [address] PCP - General Family Medicine 08/26/17 [facility] 09/01/24 documented as of this encounter
--- OUTSIDE RECORDS SUMMARY | 2025-10-08 06:50 | XMS_ITS | Encounter Summary ---
Author Organization [employer] Address 75 [facility] [address] [place] [address] Care Team Providers Care Utility Agent Name Role Phone Name, Nitin PIKE Primary Care Provider [phone] Reason for Visit * Reason Onset Date Comments triage 12/18/2022 Encounter Details Date Type Department Care Team ([facility] st Contact Info) Description 12/18/2022 Telephone [facility] MEDICINE 230 [place], [place] [phone] Name, MD Nitin [address] [place] [address] triage Social History Tobacco Use Types Packs/Day [...] 12/18/2022 2:35 PM EST Called pt. [facility] [place] general manager [employer] [phone] Eduardo. Pt. States that she has a [...] phone. Please reach out to pt. With Colombian speaking another time to see what her [...] Visit [facility] MEDICINE [address] [place] [address] Name, MD Nitin [address] [place] [address] documented as of this encounter Visit Diagnoses Not on filedocumented in this encounter Care Teams Utility Agent Relationship Specialty Start Date End Date Name, MD Nitin [address] [place] [address] PCP - General Family Medicine 08/26/17 [facility] 09/01/24 documented as of this encounter
[2025-10-08 06:57] VITALS: BP 116/78; BP 138/82; PULSE 104; PULSE 95; RESP 22; TEMP 36.8; O2SAT 96; O2SAT 98; BMI 37.4
--- NOTE | 2025-10-08 07:37 | ED.GENADULT ---
HPI - General Adult General Chief complaint: General Medical Stated complaint: LLE PAIN/NO INJURY,ANXIETY PER EMS Time Seen by Provider: 10/08/25 07:31 Source: patient Mode of arrival: EMS History of Present Illness HPI narrative: This is 80 years old well known to this emergency department frequent utilizer of the department she has a history of anxiety disorder she has a chronic left knee pain presented to the emergency department complaining of left knee pain also complaining of anxiety. No new trauma. 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 Onset (ago): day(s) (One day) Location: lower extremity (Left knee) Severity: mild Relieving factors: none Exacerbating factors: none Associated symptoms: rash Related Data Home Medications ?Medication ?Instructions ?Recorded ?Confirmed omeprazole 20 mg tablet,delayed 20 mg PO DAILY@0630 08/09/20 08/22/25 release aspirin 81 mg tablet,delayed 81 mg PO QAM 01/28/24 08/22/25 release bisacodyl 5 mg tablet,delayed 5 mg PO DAILY PRN constipation 01/28/24 08/22/25 release ferrous sulfate 325 mg (65 mg 325 mg PO DAILY 01/28/24 08/22/25 iron) tablet (FeroSul) melatonin 10 mg tablet,extended 10 mg PO BEDTIME PRN Insomnia 01/28/24 08/22/25 release multivitamin 1 tab PO QAM 01/28/24 08/22/25 rosuvastatin 20 mg tablet 20 mg PO BEDTIME 01/28/24 08/22/25 trazodone 50 mg tablet 50 mg PO BEDTIME 01/28/24 08/22/25 amlodipine 10 mg tablet 10 mg PO DAILY 02/09/24 08/22/25 acetaminophen 500 mg tablet 500 mg PO Q8H PRN pain 08/09/24 08/22/25 cholecalciferol (vitamin D3) 25 25 mcg PO DAILY 08/20/24 08/22/25 mcg (1,000 unit) tablet sertraline 100 mg tablet 100 mg PO DAILY 03/16/25 08/22/25 apixaban 5 mg tablet 5 mg PO BID 08/22/25 08/22/25 clonazepam 0.5 mg tablet 0.5 mg PO TID 08/22/25 08/22/25 fluticasone propionate 50 2 spray intranasal DAILY PRN 08/22/25 08/22/25 mcg/actuation nasal Allergic Symptoms spray,suspension (Flonase Allergy Relief) hydroxyzine HCl 25 mg tablet 10 mg PO DAILY PRN anxiety 08/22/25 08/22/25 ketotifen fumarate 0.025 % (0.035 1 drp ophthalmic (eye) BID PRN 08/22/25 08/22/25 %) eye drops allergies mirtazapine 45 mg tablet 45 mg PO BEDTIME 08/22/25 08/22/25 valsartan 160 mg tablet 160 mg PO QPM 08/22/25 08/22/25 Previous Rx's ?Medication ?Instructions ?Recorded metoprolol succinate 50 mg 50 mg PO DAILY #90 tabs 09/28/20 tablet,extended release 24 hr docusate sodium 100 mg capsule 200 mg (2 x 100 mg) PO BID #20 caps 02/24/25 (Colace) ibuprofen 200 mg tablet 200 mg PO Q6H PRN pain #20 tabs 07/24/25 meclizine 12.5 mg tablet 12.5 mg PO TID PRN dizziness or 07/26/25 vertigo #30 tabs meclizine 25 mg tablet 25 mg PO BID PRN dizziness #14 tabs 09/22/25 Allergies Allergy/AdvReac Type Severity Reaction Status Date / Time penicillin G (Penicillin G) Allergy Severe ITCHY/RASH Verified 10/08/25 06:59 Sulfa (Sulfonamide Allergy Severe ITCHY,RASH, Verified 10/08/25 06:59 Antibiotics) (Sulfa rash (Sulfonamides)) trimethoprim (From Bactrim) Allergy Severe HIVES Verified 10/08/25 06:59 Penicillins Allergy Intermediate Hives Verified 10/08/25 06:59 sulfamethoxazole (From Allergy Mild Hives Verified 10/08/25 06:59 Bactrim) Review of Systems Constitutional: Constitutional: Reports no additional constitutional complaints ENT: Reports system reviewed and no additional complaints, except as documented Gastrointestinal: Gastrointestinal: Reports no additional gastrointestinal complaints PMFSH Past Medical History Attestation statement: The following information was validated with the patient. 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) Alcohol intake: never Patient Tobacco Use Status: Never used Tobacco Advance Directives: Yes Advance Directives on File: Yes Advance Directives Date on File: 01/28/24 service: No Physical Exam ED Exam Exam: She looks well she is not toxic-appearing Vital Signs: Vital Signs - 24 hr 10/08/25 06:57 Temperature 98.2 F Pulse Rate 95 Respiratory Rate 22 H Blood Pressure 116/78 Pulse Oximetry 98 Oxygen Delivery Method Room Air BMI result Body Mass Index 37.4 Normotensive afebrile no distress Const General: cooperative Nutritional Appearance: well nourished Orientation/consciousness: patient oriented x3 Limitations: no limitations HENMT Head: Yes normal to inspection General nose exam: Normal external nose present Face and sinus: Yes normal facial exam Neck Neck: Yes normal visual inspection Chest Chest palpation & inspection: normal inspection of the chest Resp Effort & Inspection: normal respiratory effort Auscultation: clear to auscultation bilaterally Cardio Jugular venous distension: no JVD Rate: regular rate Rhythm: regular rhythm GI Inspection: Yes normal to inspection Palpation (GI): Soft to palpation, not firm, nontender and no guarding General: Yes no CVA tenderness Back/Spine/Pelvis Back: no CVA tenderness Neuro General: patient oriented x3 Cranial nerves: Yes CN's II-XII intact bilaterally Extrem Other: Examination left knee shows tenderness over the patella she has a excellent perfusion in the feet there is no calf tenderness General: Yes full ROM and Yes capillary refill normal Medical Decision Making Medical Decision Making MDM Narrative: The patient presented basically in the left knee pain which is chronic, I do not think we need to do any x-ray she already had x-ray several times a she has no trauma, also I do not think we need to do an ultrasound to rule out DVT she has no calf tenderness she has excellent perfusion in the feet no evidence of peripheral vascular disease. 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 History obtained from or confirmed by: EMS Discharge Plan Discharge Clinical Impression: Anxiety disorder Qualifiers: Anxiety disorder type: generalized anxiety disorder Qualified Code(s): F41.1 - Generalized anxiety disorder Left knee DJD Qualifiers: Osteoarthritis type: primary Qualified Code(s): M17.12 - Unilateral primary osteoarthritis, left knee Patient Disposition: Home, Self-Care Instructions: Anxiety (ED) Additional Instructions: Follow-up with your primary care physician is on to the emergency room if worse Prescriptions: No Action metoprolol succinate 50 mg tablet extended release 24 hr 50 mg PO DAILY Qty: 90 2RF omeprazole 20 mg Tablet,Delayed Release (Dr/Ec) 20 mg PO DAILY@0630 meclizine 12.5 mg tablet 12.5 mg PO TID PRN (Reason: dizziness or vertigo) Qty: 30 0RF trazodone 50 mg tablet 50 mg PO BEDTIME ferrous sulfate [FeroSul] 325 mg (65 mg iron) tablet 325 mg PO DAILY bisacodyl 5 mg tablet,delayed release (DR/EC) 5 mg PO DAILY PRN (Reason: constipation) rosuvastatin 20 mg tablet 20 mg PO BEDTIME aspirin 81 mg tablet,delayed release (DR/EC) 81 mg PO QAM multivitamin Tablet 1 tab PO QAM melatonin 10 mg tablet extended release 10 mg PO BEDTIME PRN (Reason: Insomnia) cholecalciferol (vitamin D3) 25 mcg (1,000 unit) tablet 25 mcg PO DAILY acetaminophen 500 mg tablet 500 mg PO Q8H PRN (Reason: pain) docusate sodium [Colace] 100 mg capsule 200 mg PO BID Qty: 20 0RF ibuprofen 200 mg tablet 200 mg PO Q6H PRN (Reason: pain) Qty: 20 0RF ketotifen fumarate 0.025 % (0.035 %) drops 1 drp ophthalmic (eye) BID PRN (Reason: allergies) mirtazapine 45 mg tablet 45 mg PO BEDTIME clonazepam 0.5 mg tablet 0.5 mg PO TID hydroxyzine HCl 25 mg tablet 10 mg PO DAILY PRN (Reason: anxiety) fluticasone propionate [Flonase Allergy Relief] 50 mcg/actuation spray,suspension 2 spray intranasal DAILY PRN (Reason: Allergic Symptoms) Rx Instructions: administer into each nostril apixaban 5 mg tablet 5 mg PO BID valsartan 160 mg tablet 160 mg PO QPM meclizine 25 mg tablet 25 mg PO BID PRN (Reason: dizziness) Qty: 14 0RF sertraline 100 mg tablet 100 mg PO DAILY amlodipine 10 mg tablet 10 mg PO DAILY Print Language: French
[2025-10-08 08:21] VITALS: BP 120/67; PULSE 99; RESP 16; TEMP 36.6; O2SAT 96
--- NOTE | 2025-10-08 08:22 | PC.NURSE ---
Pt arriving reporting increased anxiety and LLE pain. SUPERVISOR HOT DIP TINNING went to get her medications from [facility] yesterday but they were closed for the holiday, pt medicated per JAN, SUPERVISOR HOT DIP TINNING called and on her way for DC cook pickled meat
[2025-10-08 08:23] VITALS: BP 120/67; PULSE 99; RESP 16; TEMP 36.6; O2SAT 96
== END 2025-10-08 08:23 | disposition home or self-care (01) ==
PROVIDERS: Emergency Provider Emergency Medicine
DX: F41.1 Generalized anxiety disorder (principal); M17.12 Unilateral primary osteoarthritis, left knee; Z79.899 Other long term (current) drug therapy
CPT/HCPCS: 99284

== ENCOUNTER 2025-10-09 12:07 | Emergency (ER) | payer OTHER, SELFPAY ==
[2025-10-09 12:13] VITALS: BP 147/85; PULSE 88; O2SAT 99
--- NOTE | 2025-10-09 12:52 | ED.GENADULT ---
HPI - General Adult General Chief complaint: Anxiety Stated complaint: ANXIETY ATTACK,SEEN T-1 FOR SAME PER EMS Time Seen by Provider: 10/09/25 13:04 Source: patient, EMS and RN notes reviewed Limitations: no limitations and language barrier (refused shelf stocker) History of Present Illness HPI narrative: 80-year-old female who has a history of CKD, anxiety, hypertension, presents for evaluation of anxiety. Patient states she is prescribed clonazepam however due to the holiday and due to that she has been taking more than prescribed she has run out. Patient reports that she was seen recently in the emergency department where she received medication and has returned requesting additional anxiety medication. Patient is concerned that she may have an anxiety attack. Currently she denies any chest pain or shortness of breath. She denies any SI or HI. Patient repeatedly asking for additional anxiety medications. 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 Related Data Home Medications ?Medication ?Instructions ?Recorded ?Confirmed omeprazole 20 mg tablet,delayed 20 mg PO DAILY@0630 08/09/20 08/22/25 release aspirin 81 mg tablet,delayed 81 mg PO QAM 01/28/24 08/22/25 release bisacodyl 5 mg tablet,delayed 5 mg PO DAILY PRN constipation 01/28/24 08/22/25 release ferrous sulfate 325 mg (65 mg 325 mg PO DAILY 01/28/24 08/22/25 iron) tablet (FeroSul) melatonin 10 mg tablet,extended 10 mg PO BEDTIME PRN Insomnia 01/28/24 08/22/25 release multivitamin 1 tab PO QAM 01/28/24 08/22/25 rosuvastatin 20 mg tablet 20 mg PO BEDTIME 01/28/24 08/22/25 trazodone 50 mg tablet 50 mg PO BEDTIME 01/28/24 08/22/25 amlodipine 10 mg tablet 10 mg PO DAILY 02/09/24 08/22/25 acetaminophen 500 mg tablet 500 mg PO Q8H PRN pain 08/09/24 08/22/25 cholecalciferol (vitamin D3) 25 25 mcg PO DAILY 08/20/24 08/22/25 mcg (1,000 unit) tablet sertraline 100 mg tablet 100 mg PO DAILY 03/16/25 08/22/25 apixaban 5 mg tablet 5 mg PO BID 08/22/25 08/22/25 clonazepam 0.5 mg tablet 0.5 mg PO TID 08/22/25 08/22/25 fluticasone propionate 50 2 spray intranasal DAILY PRN 08/22/25 08/22/25 mcg/actuation nasal Allergic Symptoms spray,suspension (Flonase Allergy Relief) hydroxyzine HCl 25 mg tablet 10 mg PO DAILY PRN anxiety 08/22/25 08/22/25 ketotifen fumarate 0.025 % (0.035 1 drp ophthalmic (eye) BID PRN 08/22/25 08/22/25 %) eye drops allergies mirtazapine 45 mg tablet 45 mg PO BEDTIME 08/22/25 08/22/25 valsartan 160 mg tablet 160 mg PO QPM 08/22/25 08/22/25 Previous Rx's ?Medication ?Instructions ?Recorded metoprolol succinate 50 mg 50 mg PO DAILY #90 tabs 09/28/20 tablet,extended release 24 hr docusate sodium 100 mg capsule 200 mg (2 x 100 mg) PO BID #20 caps 02/24/25 (Colace) ibuprofen 200 mg tablet 200 mg PO Q6H PRN pain #20 tabs 07/24/25 meclizine 12.5 mg tablet 12.5 mg PO TID PRN dizziness or 07/26/25 vertigo #30 tabs meclizine 25 mg tablet 25 mg PO BID PRN dizziness #14 tabs 09/22/25 Allergies Allergy/AdvReac Type Severity Reaction Status Date / Time penicillin G (Penicillin G) Allergy Severe ITCHY/RASH Verified 10/09/25 12:56 Sulfa (Sulfonamide Allergy Severe ITCHY,RASH, Verified 10/09/25 12:56 Antibiotics) (Sulfa rash (Sulfonamides)) trimethoprim (From Bactrim) Allergy Severe HIVES Verified 10/09/25 12:56 Penicillins Allergy Intermediate Hives Verified 10/09/25 12:56 sulfamethoxazole (From Allergy Mild Hives Verified 10/09/25 12:56 Bactrim) Review of Systems Review of Systems: Yes all other systems are reviewed and are negative Constitutional: Constitutional: Denies chills and Denies headache(s) ENT: Denies headache(s) Cardiovascular: Cardiovascular: Denies chest pain Respiratory: Respiratory: Denies cough Neurologic: Denies headache(s) PMFSH Past Medical History 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) Alcohol intake: never Patient Tobacco Use Status: Never used Tobacco Advance Directives: Yes Advance Directives on File: Yes Advance Directives Date on File: 01/28/24 service: No Physical Exam ED Vital Signs: Vital Signs - 24 hr 10/09/25 12:56 10/09/25 13:26 Temperature 98.0 F 98.0 F Pulse Rate 89 89 Respiratory Rate 16 16 Blood Pressure 148/76 H 148/76 H Pulse Oximetry 97 97 Oxygen Delivery Method Room Air Room Air BMI result Body Mass Index 35.2 Const General: alert, awake and Physically active Resp Other: Lung sounds clear throughout Cardio Rate: regular rate Rhythm: regular rhythm Extrem Other: no calf tenderness or pedal edema bilaterally Medical Decision Making Medical Decision Making MDM Narrative: 80-year-old female who has frequent visits to the emergency department requesting anxiety medications. I have reviewed her prescription monitoring program, confirming that she is eligible to receive clonazepam as prescribed by her PCP With refill available. I have had extensive discussion with the patient regarding follow up with her PCP she may need adjustments in her medication to control her symptoms. In addition, she is otherwise hemodynamically stable and without any acute HI or SI. Patient feels comfortable with discharge plan home. No further questions at this time. 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 You will need to follow up with your primary care provider if you need adjustments in your medication for anxiety. Follow-up with your primary care provider. Call this week to schedule a follow-up appointment. Return to the emergency department if you have any worsening of symptoms, or any concerns. Get well soon! Prescriptions: No Action metoprolol succinate 50 mg tablet extended release 24 hr 50 mg PO DAILY Qty: 90 2RF omeprazole 20 mg Tablet,Delayed Release (Dr/Ec) 20 mg PO DAILY@0630 meclizine 12.5 mg tablet 12.5 mg PO TID PRN (Reason: dizziness or vertigo) Qty: 30 0RF trazodone 50 mg tablet 50 mg PO BEDTIME ferrous sulfate [FeroSul] 325 mg (65 mg iron) tablet 325 mg PO DAILY bisacodyl 5 mg tablet,delayed release (DR/EC) 5 mg PO DAILY PRN (Reason: constipation) rosuvastatin 20 mg tablet 20 mg PO BEDTIME aspirin 81 mg tablet,delayed release (DR/EC) 81 mg PO QAM multivitamin Tablet 1 tab PO QAM melatonin 10 mg tablet extended release 10 mg PO BEDTIME PRN (Reason: Insomnia) cholecalciferol (vitamin D3) 25 mcg (1,000 unit) tablet 25 mcg PO DAILY acetaminophen 500 mg tablet 500 mg PO Q8H PRN (Reason: pain) docusate sodium [Colace] 100 mg capsule 200 mg PO BID Qty: 20 0RF ibuprofen 200 mg tablet 200 mg PO Q6H PRN (Reason: pain) Qty: 20 0RF ketotifen fumarate 0.025 % (0.035 %) drops 1 drp ophthalmic (eye) BID PRN (Reason: allergies) mirtazapine 45 mg tablet 45 mg PO BEDTIME clonazepam 0.5 mg tablet 0.5 mg PO TID hydroxyzine HCl 25 mg tablet 10 mg PO DAILY PRN (Reason: anxiety) fluticasone propionate [Flonase Allergy Relief] 50 mcg/actuation spray,suspension 2 spray intranasal DAILY PRN (Reason: Allergic Symptoms) Rx Instructions: administer into each nostril apixaban 5 mg tablet 5 mg PO BID valsartan 160 mg tablet 160 mg PO QPM meclizine 25 mg tablet 25 mg PO BID PRN (Reason: dizziness) Qty: 14 0RF sertraline 100 mg tablet 100 mg PO DAILY amlodipine 10 mg tablet 10 mg PO DAILY Interventions: ED Discharge Assessment Last Done: 10/09/25 13:26 Discharge Date/Time: 10/09/25 13:26 Print Language: Indonesian
[2025-10-09 12:56] VITALS: BP 148/76; PULSE 89; RESP 16; TEMP 36.7; O2SAT 97; BMI 35.2
--- OUTSIDE RECORDS SUMMARY | 2025-10-09 13:08 | XMS_ITS | Clinical Summary ---
Author Organization [facility] Address [address] [place] [address] Phone Care Team Providers Care Egg Gatherer Name Role Phone Physician, No Pcp Primary [...] [facility] [address] [place] [address], from Last 3 Months or Most Recently Relevant to Health Maintenance Insurance [facility] MEDICARE Member Subscriber Plan / Payer (Ef fective 2021-Present) Name:Noreen Wing Relation to Subscriber:Self Name:Noreen Wing Payer ID:[id number] Group ID:[id number] Type:Not on file Address: [place] [address] [address] Care Teams Egg Gatherer Relationship Specialty Start Date End Date Physician, No Pcp PCP - General 09/22/24
--- OUTSIDE RECORDS SUMMARY | 2025-10-09 13:08 | XMS_ITS | Encounter Summary ---
Author Organization [employer] Address [address] [facility] [address] [facility] [address] [place] [address] Care Team Providers Care 1St Pressman Name Role Phone Name, Nitin PIKE Primary Care Provider [phone] Reason for Visit * Reason Onset Date Comments ER Follow-up 05/31/2024 Encounter Details Date Type Department Care Team ([facility] Contact Info) Description 05/31/2024 Telephone [facility] [address] [place], [place] [id number] Name, MD Nitin [address] [place] [address] ER Follow-up Social History Tobacco Use Types [...] 1:36 PM EDT T/C to Pat ([facility]) [phone] for below message, no answer. LVM to call back on [phone]. * Telephone Encounter - Melany Santos RN - 05/31/2024 1:32 PM EDT DAVID T/C to pt. Through [place] - [id number] for below message, pt. Had recent fall and ED visit at [facility]. RN will request GRACE piedra from [facility]. Pt. Is doing good, states I am tired andsleeping. Pt. Dose not has any question or concern right now. Pt. Already has HDF apt. Schedule on 06/10/2024. Pt. Advised to give call to [facility] if any questions or concerns. Pt. Verbally agreed and understood. Please review and advise if needed. * Telephone Encounter - Adithya Solorzano - 05/31/2024 12:50 PM EDT Patient calling to report ED visit on : Date: 05/26 Hospital: [facility] Seen for: Fall, Back Pain Pat stated pt is requesting a sooner apt with pcp due to recent ER visit. PT is also requesting order for PT services for to go along with [facility]. documented in this encounter Plan of Treatment Upcoming Encounters Date Type Department Care Team (Late st Contact Info) Description 11/07/2025 10:00 AM EST Office Visit [facility] [address] [place] [address] Name, MD Nitin [address] [place] [address] documented as of this encounter Visit Diagnoses Not on filedocumented in this encounter Additional Health Concerns Assessment Noted Time PHQ-9 Depression Total Score: 6 02/13/20 24 9:14 AM EDT documented as of this encounter Care Teams 1St Pressman Relationship Specialty Start Date End Date Name, MD Nitin [address] [place] [id number] PCP - General Family Medicine 08/26/17 [facility] 09/01/24 documented as of this encounter
--- OUTSIDE RECORDS SUMMARY | 2025-10-09 13:08 | XMS_ITS | Encounter Summary ---
Author Organization [employer] Address [address] [facility] [address] [place] [address] Care Team Providers Care Unix Developer Name Role Phone Name, Nitin PIKE Primary Care Provider [phone] Reason for Visit * Reason Onset Date Comments Med Refill 11/08/2024 Encounter Details Date Type Department Care Team ([facility] st Contact Info) Description 11/08/2024 Telephone [facility] [address] [place], [place] [id number] Name, MD Nitin [address] [place] [address] Med Refill Social History Tobacco Use Types [...] 5 MG tablet To be sent to: [facility] - [place], [place] - [address] [facility] documented in this encounter Plan of Treatment Upcoming Encounters Date Type Department Care Team ([facility] st Contact Info) Description 11/07/2025 10:00 AM EST Office Visit [facility] [address] [place] [address] Name, MD Nitin [address] [place] [address] documented as of this encounter Visit Diagnoses Not on filedocumented in this encounter Additional Health Concerns Assessment Noted Time PHQ-9 Depression Total Score: 6 02/13/20 24 9:14 AM EDT documented as of this encounter Care Teams Unix Developer Relationship Specialty Start Date End Date Name, MD Nitin [address] [place] [address] PCP - General Family Medicine 08/26/17 [facility] 09/01/24 documented as of this encounter
--- OUTSIDE RECORDS SUMMARY | 2025-10-09 13:08 | XMS_ITS | Encounter Summary ---
Author Organization [employer] Address [address] [facility] 7t [place] [address] Care Team Providers Care Superintendent Maintenance Airports Name Role Phone Name, Nitin PIKE Primary Care Provider [phone] Encounter Details Date Type Department Care Team [...] Office Visit [facility] [address] [place] [phone] Name, MD Nitin [address] [place] [address] documented as of this encounter Procedures Procedure Name Priority Date/Time Associated Diagnosis Comments URINALYSIS, COMPLETE, WITH REFLEX TO CULTURE Routine 10/03/2025 11:18 PM EST CULTURE, URINE, ROUTINE Routine 10/03/2025 12:00 AM EST documented in this encounter Results * (ABNORMAL) Urinalysis, Complete, with Reflex to Culture (10/03/2025 11:18 PM EST) Color Urine Yellow [facility] Appearance Urine Clear [facility] PH 6.0 5.0 - 9.0 [facility] Glucose Urine UA Negative Negative mg/dL [facility] Urine Blood Negative Negative [facility] Specific [place] - Urine 1.015 1.005 - 1.025 [facility] Urine Protein Negative Neg-Trace mg/dL [facility] Urine Ketones Negative Negative mg/dL [facility] Nitrite Urine Negative Negative [facility] Leukocyte Esterase Urine Moderate (2+)(A) Negative [facility] RBC Urine 0-2 0 - 2 /HPF [facility] Urine WBC 11-20(A) 0 - 5 /HPF [facility] Urine Squamous Epithelial Cell 0-2 0 - 2 /HPF [facility] Urine Bacteria None Seen None Seen [facility] Hyaline Casts, Urine 0-2 0 - 2 /LPF [facility] 10/03/2025 11:1 8 PM EST 10/03/2025 11:21 PM EST Narrative [facility] - 10/03/2025 11:29 PM EST [id number], Clean Catch Generic External Data Provider LAB URINE ORDERAB LES Final Result Performing Organization Address [facility] de Phone Number [facility] [address] [place] [phone] * Culture, Urine, Routine (10/03/2025 12:00 AM EST) Urine Urine specimen obtained by clean catch procedure / Unknown 10/03/2025 10/03/2025 Comment:[facility] Narrative [facility] - 10/05/2025 11:28 AM EST Urine Culture Report Result Urine Culture 10,000 to 50,000 cfu/ml Urine Culture Mixed bacterial jann characteristic of Urine Culture urogenital contamination. Specimen Source: Urine clean catch Generic External Data Provider LAB MICROBIOLOGY - GENERAL ORDERABLES Final Result Performing Organization Address [facility] de Phone Number [facility] [address] [place] [phone] documented in this encounter Visit Diagnoses Not on filedocumented in this encounter Additional Health Concerns Assessment Noted Time PHQ-9 Depression Total Score: 3 04/29/20 25 9:41 AM EDT documented as of this encounter Care Teams Superintendent Maintenance Airports Relationship Specialty Start Date End Date Name, MD Nitin [address] [place] [phone] PCP - General Family Medicine 08/26/17 [facility] 09/01/24 documented as of this encounter
--- OUTSIDE RECORDS SUMMARY | 2025-10-09 13:08 | XMS_ITS | Encounter Summary ---
Author Organization [employer] Address [address] [facility] [address] [place] [address] Care Team Providers Care Hair Salon Manager Name Role Phone Name, Nitin PIKE Primary Care Provider [phone] Encounter Details Date Type Department Care Team ([facility] st Contact Info) Description 05/26/2023 Orders Only [facility] [address] [place] [address] Noreen Fox MD [address] [place] [address] Social History Tobacco Use Types Packs/Day Years [...] AM EST Office Visit [facility] [address] [place] [address] Name, MD Nitin [address] [place] [address] documented as of this encounter Visit Diagnoses Not on filedocumented in this encounter Care Teams Hair Salon Manager Relationship Specialty Start Date End Date Name, MD Nitin [address] [place] [address] PCP - General Family Medicine 08/26/17 [facility] 09/01/24 documented as of this encounter
--- OUTSIDE RECORDS SUMMARY | 2025-10-09 13:08 | XMS_ITS | Encounter Summary ---
Author Organization [employer] Address [address] [facility] [address] [place] [address] Care Team Providers Care Drawer Liner Name Role Phone Name, Nitin PIKE Primary Care Provider [phone] Reason for Visit * Reason Comments Med Refill Encounter Details Date Type Department Care Team ([facility] st Contact Info) Description 04/01/2024 Refill [facility] [address] [place], [place] [phone] Name, MD Nitin [address] [place] [address] Rash Social History Tobacco Use Types Packs/Day [...] Visit [facility] [address] [place] [phone] NameNitin MD [address] [place] [phone] documented as of this encounter Visit Diagnoses Diagnosis Rash Rash and other nonspecific skin eruption documented in this encounter Additional Health Concerns Assessment Noted Time PHQ-9 Depression Total Score: 6 02/13/20 24 9:14 AM EDT documented as of this encounter Care Teams Drawer Liner Relationship Specialty Start Date End Date NameNitin MD [address] [place] [phone] PCP - General Family Medicine 08/26/17 [facility] 09/01/24 documented as of this encounter
--- OUTSIDE RECORDS SUMMARY | 2025-10-09 13:08 | XMS_ITS | Encounter Summary ---
Author Organization [employer] Address [address] [facility] [address] [place] [address] Care Team Providers Care Supervisor Ship Maintenance Services Name Role Phone Name, Nitin PIKE Primary Care Provider [phone] Reason for Visit * Reason Onset Date Comments Referral 08/24/2025 Encounter Details Date Type Department Care Team ([facility] st Contact Info) Description 08/24/2025 Telephone [facility] [address] [place], [place] [phone] Name, MD Nitin [address] [place] [address] Referral Social History Tobacco Use Types Packs/Day [...] DATE: 09/21/25 TIME: 10 am Facility Name: [facility] PT Type of Specialist: Physical therapy Facility Phone # : [phone] Fax #: [phone] documented in this encounter Plan of Treatment Upcoming Encounters Date Type Department Care Team (Late st Contact Info) Description 11/07/2025 10:00 AM EST Office Visit [facility] [address] [place], [place] [phone] Name, MD Nitin [address] [place] [address] documented as of this encounter Visit Diagnoses Not on filedocumented in this encounter Additional Health Concerns Assessment Noted Time PHQ-9 Depression Total Score: 3 04/29/20 9:41 AM EDT documented as of this encounter Care Teams Supervisor Ship Maintenance Services Relationship Specialty Start Date End Date Name, MD Nitin [address] [place] [address] PCP - General Family Medicine 08/26/17 [facility] 09/01/24 documented as of this encounter
--- OUTSIDE RECORDS SUMMARY | 2025-10-09 13:08 | XMS_ITS | Encounter Summary ---
Author Organization [employer] Address [address] [facility] [address] [place] [address] Care Team Providers Care Bulk Plant Agent Name Role Phone Name, Nitin PIKE Primary Care Provider [phone] Reason for Visit * Reason Onset Date Comments Results 08/29/2023 Encounter Details Date Type Department Care Team ([facility] st Contact Info) Description 08/29/2023 Telephone [facility] [address] [place], [place] [phone] Name, MD Nitin [address] [place] [address] Results Social History Tobacco Use Types Packs/Day [...] Miscellaneous Notes * Telephone Encounter - Fozia Jacbo RN - 09/01/2023 11:51 AM EDT Pt evaluated in [facility] today and is scheduled with pcp 09/03/23. * Telephone Encounter - Janette Huitron - 08/29/2023 4:06 PM EDT Tc from pt requesting a call in regards to urine results. Please contact pt at [phone] ([place]ux[place]) documented in this encounter Plan of Treatment Upcoming Encounters Date Type Department Care Team (Late st Contact Info) Description 11/07/2025 10:00 AM EST Office Visit [facility] [address] [place] [address] Name, MD Nitin [address] [place] [phone] documented as of this encounter Visit Diagnoses Not on filedocumented in this encounter Additional Health Concerns Assessment Noted Time PHQ-9 Depression Total Score: 12 023 9:37 AM EDT documented as of this encounter Care Teams Bulk Plant Agent Relationship Specialty Start Date End Date Name, MD Nitin [address] [place] [phone] PCP - General Family Medicine 08/26/17 [facility] 09/01/24 documented as of this encounter
--- OUTSIDE RECORDS SUMMARY | 2025-10-09 13:08 | XMS_ITS | Encounter Summary ---
Author Organization [employer] Address [address] [facility] [address] [place] [address] Care Team Providers Care Electrician Sound Name Role Phone Name, Nitin PIKE Primary Care Provider [phone] Reason for Visit * Reason Comments Med Refill Encounter Details Date Type Department Care Team (Late st Contact Info) Description 08/17/2025 Refill [facility] [address] [place], [place] [phone] Miryam Riley NP [address] [place], [place] [phone] Hypertension, unspecified type Social History Tobacco Use [...] EST Office Visit [facility] [address] [place] [phone] NameNitin MD [address] [place] [address] documented as of this encounter Visit Diagnoses Diagnosis Hypertension, unspecified type documented in this encounter Additional Health Concerns Assessment Noted Time PHQ-9 Depression Total Score: 3 04/29/20 25 9:41 AM EDT documented as of this encounter Care Teams Electrician Sound Relationship Specialty Start Date End Date Name, MD Nitin [address] [place] [phone] PCP - General Family Medicine 08/26/17 [facility] 09/01/24 documented as of this encounter
--- OUTSIDE RECORDS SUMMARY | 2025-10-09 13:08 | XMS_ITS | Clinical Summary ---
Author Organization [employer] Address [address] [place] [address] [address] [place] [address] Care Team Providers Care Airport Security Screener Name Role Phone Name, Nitin PIKE Primary Care Provider [phone] Allergies Active Allergy Reactions Criticality Noted Date [...] MOUTH EVERY 8 HOURS NEEDED FOR PAIN (MONGOLIAN LABEL) 90 tablet Active omeprazole (PriLOSEC) 20 [...] because it calms her down. I called [facility] pharmacy to attempt a med rec they instructed me that she is on med box and one week at a time prescriptions because she would break into her med boxes to take more Ambien or xanax. She is being seen by Izzy Perea at [facility]. He is aware of her behavior [...] left I received a call from the [facility] pharmacy instructing me that she [...] Data 09/29/2025 8:40 AM EST Office Visit [facility] [address] [place] [address] Zach Javier MD Acute right-sided low back pain without sciatica (Primary Dx); Vertigo 09/29/2025 Travel 09/28/2025 Refill [facility] [address] [place] [address] Name, MD Nitin Vitamin D deficiency 09/27/2025 Refill [facility] [address] [place] [address] Nitin Echevarria MD 09/22/[address] [address] Nitin Echevarria MD Nurse Triage 09/22/2025 Orders Only GENERIC EXTERNAL DATA DEPARTMENT Provider, Generic External Data 09/21/[address] [address] Nitin Echevarria MD Request For Order(s); Referral 09/19/2025 Refill [facility] [address] [place] [address] Nitin Echevarria MD 09/19/2025 Orders Only GENERIC EXTERNAL DATA DEPARTMENT Provider, Generic External Data 09/18/2025 Orders Only [facility] External Provider, [facility] 09/17/2025 Orders Only GENERIC EXTERNAL DATA DEPARTMENT Provider, Generic External Data 09/09/[address] [address] Thea Warren FNP Results 09/06/2025 1:30 PM EDT Office Visit [address] [address] Thea Warren, MEDICAL OFFICE COORDINATOR Acute pain of left knee (Primary Dx); Urinary frequency; Acute cystitis without hematuria 09/06/2025 Orders Only [address] [address] Thea Warren FNP 09/06/2025 Travel 09/05/[address] [address] Nitin Echevarria MD Chart Prep 09/03/2025 Orders Only GENERIC EXTERNAL DATA DEPARTMENT Provider, Generic External Data 08/30/2025 Patient Outreach [facility] [address] [place] [address] Nitin Echevarria MD Pre-visit Planning ([facility] unable to reach) 08/24/[address] [address] Nitin Echevarria MD Referral 08/24/[address] [address] Nitin Echevarria MD Verbal Order 08/22/2025 Orders Only [facility] External Provider, [facility] 08/18/2025 Orders Only GENERIC EXTERNAL DATA DEPARTMENT Provider, Generic External Data 08/17/2025 Refill [facility] [address] [place] [address] Nitin Echevarria MD 08/17/2025 Refill [facility] [address] [place] [address] Miryam Riley NP Hypertension, unspecified type 08/15/2025 Refill [facility] [address] [place] [address] Nitin Echevarria MD Heartburn 08/14/2025 Refill [facility] [address], [place] [phone] Nitin Echevarria MD Heartburn; Vitamin D deficiency 08/09/2025 11:15 AM EDT Office Visit [facility] [address] [place] [address] Nitin Echevarria MD Generalized anxiety disorder with panic attacks (Primary Dx); Encounter for immunization; Chronic bilateral low back pain without sciatica 08/09/2025 Travel 08/01/2025 Refill [facility] [address] [place] [address] Nitin Echevarria MD Vitamin D deficiency 07/28/2025 Orders Only GENERIC EXTERNAL DATA DEPARTMENT Provider, Generic External Data 07/27/2025 Orders Only [facility] External Provider, [facility] 07/26/2025 Orders Only GENERIC EXTERNAL DATA DEPARTMENT Provider, Generic External Data 07/26/2025 Telephone [facility] [address] [place] [address] Nitin Echevarria MD ER Follow-up 07/25/2025 Refill [facility] [address] [place] [address] Nitin Echevarria MD 07/25/2025 Refill [facility] [address] [place], [place] [phone] Nitin Echevarria MD 07/18/2025 Refill [facility] [address], [place] [phone] Miryam Riley NP 07/18/2025 Orders Only GENERIC EXTERNAL DATA DEPARTMENT Provider, Generic External Data 07/17/2025 Refill [facility] [address] [place] [phone] Name, MD Nitin Hypertension, unspecified type from [...] Office Visit [facility] [address] [place] [address] Name, MD Nitin [address] [place] [address] Health Maintenance Due Date Last Done Comments [...] time period is included. Color Urine Yellow [facility] Appearance Urine Clear [facility] PH 6.0 5.0 - 9.0 [facility] Glucose Urine UA Negative Negative mg/dL [facility] Urine Blood Negative Negative [facility] Specific [place] - Urine 1.015 1.005 - 1.025 [facility] Urine Protein Negative Neg-Trace mg/dL [facility] Urine Ketones Negative Negative mg/dL [facility] Nitrite Urine Negative Negative [facility] Leukocyte Esterase Urine Moderate (2+)(A) Negative [facility] RBC Urine 0-2 0 - 2 /HPF [facility] Urine WBC 11-20(A) 0 - 5 /HPF [facility] Urine Squamous Epithelial Cell 0-2 0 - 2 /HPF [facility] Urine Bacteria None Seen None Seen [facility] Hyaline Casts, Urine 0-2 0 - 2 /LPF [facility] 10/03/2025 11:1 8 PM EST 10/03/2025 11:21 PM EST Narrative [facility] - 10/03/2025 11:29 PM EST [id number], Clean Catch us Generic External Data Provider LAB URINE ORDERAB LES Final Result [facility] [address] [place] [phone] * Culture, Urine, Routine (10/03/2025 12:00 AM EST) Only the most recent of6 resultswithin the time period is included. Urine Urine specimen obtained by clean catch procedure / Unknown 10/03/2025 10/03/2025 Comment:CC Narrative [facility] - 10/05/2025 11:28 AM EST Urine Culture Report Result Urine Culture 10,000 to 50,000 cfu/ml Urine Culture Mixed bacterial jann characteristic of Urine Culture urogenital contamination. Specimen Source: Urine clean catch us Generic External Data Provider LAB MICROBIOLOGY - GENERAL ORDERABLES Final Result [facility] [address] [place] [address] [phone] * (ABNORMAL) CBC auto differential (09/22/2025 7:21 AM EST) Only the most recent of6 resultswithin the time period is included. White Blood Count 6.6 4.8 - 10.8 X10*3/uL [facility] Red Blood Count 4.39 4.20 - 5.50 X10*6/uL [facility] Hemoglobin 12.2 12.0 - 16.0 g/dl [facility] Hematocrit 37.3 37.0 - 47.0 % [facility] Mean Corpuscular Volume 85.0 80.0 - 98.0 fL [facility] Mean Corpuscular Hemoglobin 27.8 27.0 - 33.0 pg [facility] Mean Corpuscular HGB Conc 32.7 31.0 - 35.0 g/dl [facility] Red Cell Distribution Width 13.8 11.0 - 16.0 % [facility] Platelet Count 295 160 - 400 X10*3/uL [facility] Mean Platelet Volume 8.1(L) 9.4 - 12.3 fL [facility] Neutrophils Percent Auto 70.6 45 - 73 % [facility] Imm Gran Pct Auto 0.5(H) 0.0 - 0.4 % [facility] Lymphocytes Percent Auto 18.3(L) 20 - 40 % [facility] Monocytes Percent Auto 9.4 2 - 11 % [facility] Eosinophils Percent Auto 0.6 0 - 4 % [facility] Basophils Percent Auto 0.6 0 - 2 % [facility] NRBC Pct Auto 0.0 0.0 - 0.2 /100WBC [facility] Neutrophils Absolute Auto 4.7 2.0 - 8.3 x10*3/uL [facility] Imm Gran Abs Auto 0.03 0.00 - 0.03 X10*3/uL [facility] Lymphocytes Absolute Auto 1.2 1.2 - 4.9 X10*3/uL [facility] Monocytes Absolute Auto 0.6 0.1 - 1.2 X10*3/uL [facility] Eosinophils Absolute Auto 0.0 0.0 - 0.4 X10*3/uL [facility] Basophils Absolute Auto 0.0 0.0 - 0.2 X10*3/uL [facility] NRBC Abs Auto 0.000 0.0 - 0.012 X10*3/uL [facility] 09/22/2025 7:21 AM EST 09/22/2025 7:23 AM EST us Generic External Data Provider LAB BLOOD ORDERAB LES Final Result [facility] [address] [place] [phone] * (ABNORMAL) Basic Metabolic Panel (09/22/2025 7:21 AM EST) Only the most recent of3 resultswithin the time period is included. Sodium 137 135 - 145 mmol/L [facility] Potassium 4.7 3.3 - 5.1 mmol/L [facility] Chloride 100 96 - 108 mmol/L [facility] Carbon Dioxide 29 22 - 29 mmol/L [facility] Anion Gap 13 12 - 20 [facility] Urea Nitrogen (BUN) 18(H) 9 - 16 mg/dL [facility] Creatinine, Serum 0.85 0.5 - 1.4 mg/dL [facility] Creatinine Clr Calc Pharmacy 56.1 [facility] Comment:Provided height and weight: 162.56 cm,89.3 kg.eGFR (calculated from the MDRD study equation) and eCrCl(calculated from the Cockcroft-Gault equation) are based ondifferent parameters and may not yield comparable results.If eCrCl result is absurd, please check patient'sheight/weight. Estimated Glomerular Filt Rate >60 [facility] Comment:Chronic Kidney Disea se: Estimated GFR < 60 mL/min/1.84l6Umobyv Kidney Disease: Estimated GFR < 15 mL/min/1.73m2 Glucose 105 60 - 115 mg/dL [facility] Calcium 10.0 8.4 - 10.2 mg/dL [facility] 09/22/2025 7:21 AM EST 09/22/2025 7:23 AM EST us Generic External Data Provider LAB BLOOD ORDERAB LES Final Result Performing Organization Address City/State/[facility] Co de Phone Number [facility] [address] [place] [phone] * CT Head w/o Contrast (09/19/2025 3:43 AM EST) Only the most recent of2 resultswithin the time period is included. Anatomical Region Laterality Modality Head, Neck Computed Tomogra phy 09/19/2025 3:43 AM EST Narrative 09/19/2025 3:45 AM EST [address] [address] [address] Scan Report Signed Patient: Noreen Wing MR#: [id number] : 1945 Acct:[id number] Age/Sex: 79 / F ADM Date: 09/18/25 Loc: HO.ED Attending Dr: Ordering Physician: Marium Ny DO Date of Service: 09/19/25 Procedure(s): CT head/brain wo IV con Accession Number(s): [id number] cc: Marium Ny DO; [facility] Report Number: [id number]: Total DLP = 747.02 mGy-cm Reason for [...] in OV> 09/19/25343 DD/ 2 TD/TT: 09/19/25342 Web Methods Developer: Procedure Note Donotuseinterpreter, Image - 09/19/[address] [place] [address] [address] Scan Report Signed Patient: Noreen WingMR#: [id number] : 3Acct:[id number] Age/Sex: 79 / FADM Date: 09/18/25 Loc: HO.ED Attending Dr: Ordering Physician: Marium Ny DO Date of Service: 09/19/25 Procedure(s): CT head/brain wo IV con Accession Number(s): [id number] cc: Marium Ny DO; [facility] Report Number: [id number]: Total DLP = 747.02 mGy-cm Reason for [...] in OV> 09/19/25343 DD/ 2 TD/TT: 09/19/25342 Web Methods Developer: [facility] External Provider IMG CT PROCEDURES Edited Result - Final * CT Cervical Spine w/o Contrast (09/19/2025 3:42 AM EST) Only the most recent of2 resultswithin the time period is included. Anatomical Region Laterality Modality Spine, C-spine Computed Tomogra phy 09/19/2025 3:42 AM EST Narrative 09/19/2025 3:43 AM EST [place] [address] CT Scan Report Signed Patient: Noreen Wing MR#: [id number] : 1945 Acct:[id number] Age/Sex: 79 / F ADM Date: 09/18/25 Loc: HO.ED Attending Dr: Ordering Physician: Marium Ny DO Date of Service: 09/19/25 Procedure(s): CT cervical spine wo IV con Accession Number(s): [id number] cc: Marium Ny DO; [facility] Report Number: [id number]: Total DLP = 428.77 mGy-cm Reason for Exam: fall, head trauma CLINICAL HISTORY: fall, head trauma CT cervical spine without contrast Comparison: CT/SR - CT CERVICAL SPINE WO IV CON - 09/03/25 13:35 EDT Findings: The alignment of the cervical spine is normal. There is no fracture. There is mnoo-zx-zztizwuv C5-6 degenerative disc disease. There are posterior osteophytes at C5-6 probably causing qhjq-gl-ssynawxk central canal stenosis. There is multilevel facet [...] in OV> 09/19/25341 DD/ 1 TD/TT: 09/19/25341 Web Methods Developer: Procedure Note Donotuseinterpreter, Image - 09/19/[address] [place] [address] [address] Scan Report Signed Patient: Jennifer Wing#: [id number] : 1945cct:[id number] Age/Sex: 79 / FADM Date: 09/18/25 Loc: HO.ED Attending Dr: Ordering Physician: Marium Ny DO Date of Service: 09/19/25 Procedure(s): CT cervical spine wo IV con Accession Number(s): [id number] cc: Marium Ny DO; [facility] Report Number: [id number]: Total DLP = 428.77 mGy-cm Reason for Exam: fall, head trauma CLINICAL HISTORY: fall, head trauma CT cervical spine without contrast Comparison: CT/SR - CT CERVICAL SPINE WO IV CON - 09/03/25 13:35 EDT Findings: The alignment of the cervical spine is normal. There is no fracture. There is bari-us-yyvhvevs C5-6 degenerative disc disease. There are posterior osteophytes at C5-6 probably causing bgdp-dm-vkuruncn central canal stenosis. There is multilevel facet [...] in OV> 09/19/25341 DD/ 1 TD/TT: 09/19/25341 Web Methods Developer: [facility] External Provider IMG CT PROCEDURES Edited Result - Final * High Sensitivity Troponin I (09/19/2025 12:26 AM EST) Only the most recent of6 resultswithin the time period is included. TROPONIN I HIGH SENSITIVITY <2.7 <3.5 - 17.0 ng/L [facility] Comment:The Mckeon high sens itivity Troponin-I results should beused in conjunction with other diagnostic information suchas ECG, clinical observations and information, and patientsymptoms to aid in the diagnosis of [place]. 09/19/2025 12:2 6 AM EST 09/19/2025 12:28 AM EST Generic External Data Provider LAB BLOOD ORDERAB LES Final Result Performing Organization Address City/State/[facility] Co de Phone Number [facility] [address] [place] [phone] * Prothrombin Time-INR (09/19/2025 12:26 AM EST) Only the most recent of2 resultswithin the time period is included. Prothrombin Time 12.5 11.2 - 13.5 SEC [facility] INTERNATIONAL NORM RATIO 1.0 0.9 - 1.1 [facility] Comment:INTERNATIONAL NORMAL IZED [...] Provider LAB BLOOD ORDERAB LES Final Result [facility] [address] [place] [address] [phone] * (ABNORMAL) Comprehensive Metabolic Panel (09/19/2025 12:26 AM EST) Only the most recent of4 resultswithin the time period is included. Sodium 136 135 - 145 mmol/L [facility] Potassium 4.1 3.3 - 5.1 mmol/L [facility] Chloride 101 96 - 108 mmol/L [facility] Carbon Dioxide 25 22 - 29 mmol/L [facility] Anion Gap 14 12 - 20 [facility] Urea Nitrogen (BUN) 33(H) 9 - 16 mg/dL [facility] Creatinine, Serum 0.99 0.5 - 1.4 mg/dL [facility] Creatinine Clr Calc Pharmacy 45.4 [facility] Comment:Provided height and weight: 157.48 cm,86.183 kg.eGFR (calculated from the MDRD study equation) and eCrCl(calculated from the Cockcroft-Gault equation) are based ondifferent parameters and may not yield comparable results.If eCrCl result is absurd, please check patient'sheight/weight. Estimated Glomerular Filt Rate 54 [facility] Comment:Chronic Kidney Disea se: Estimated GFR < 60 mL/min/1.60j9Oqxbeg Kidney Disease: Estimated GFR < 15 mL/min/1.73m2 Glucose 108 60 - 115 mg/dL [facility] Calcium 8.9 8.4 - 10.2 mg/dL [facility] Bilirubin, Total 0.3 0.0 - 1.0 mg/dL [facility] Aspartate Amino Transferase 26 5 - 31 U/L [facility] Alanine Aminotransferase 14 0 - 31 U/L [facility] Total Protein 7.6 6.5 - 8.0 g/dL [facility] Albumin Level 4.1 3.5 - 5.0 g/dL [facility] Alkaline Phosphatase 92 39 - 117 U/L [facility] 09/19/2025 12:2 6 AM EST 09/19/2025 12:28 AM EST us Generic External Data Provider LAB BLOOD ORDERAB LES Final Result Performing Organization Address City/State/[facility] Co de Phone Number [facility] [address] [place] [phone] * XR Knee 4+ Views Left (09/18/2025 3:36 PM EST) Only the most recent of2 resultswithin the time period is included. Anatomical Region Laterality Modality Lower Extremities, Knee Left Radiogra phic Imaging 09/18/2025 3:36 PM EST Narrative 09/18/2025 3:39 PM EST [address] [address] XRay Report Signed Patient: Noreen Wing MR#: [id number] : 1945 Acct:[id number] Age/Sex: 79 / F ADM Date: 09/18/25 Loc: HO.ED Attending Dr: Ordering Physician: Cuco Amador Date of Service: 09/18/25 Procedure(s): XR knee LT 4V Accession Number(s): [id number] cc: Cuco Amador; Name,Nitin PIKE Reason for [...] 09/18/25 1538 DD/ 1536 TD/TT: 09/18/25 1536 Web Methods Developer: Procedure Note Donotuseinterpreter, Image - 09/18/[address] [address] XRay Report Signed Patient: Noreen WingMR#: [id number] : 1945cct:[id number] Age/Sex: 79 / FADM Date: 09/18/25 Loc: HO.ED Attending Dr: Ordering Physician: Cuco Amador Date of Service: 09/18/25 Procedure(s): XR knee LT 4V Accession Number(s): [id number] cc: Cuco Amador; Name,Nitin PIKE Reason for [...] 09/18/25 1538 DD/ 1536 TD/TT: 09/18/25 1536 Web Methods Developer: [facility] External Provider IMG XR PROCEDURES Edited Result - Final * Glucose, Whole Blood (09/17/2025 7:24 AM EST) Glucose, Whole Blood 98 60 - 115 mg/dL [facility] Comment:METER #: [id number] 09/17/2025 7:24 AM EST 09/17/2025 7:28 AM EST Generic External Data Provider LAB BLOOD ORDERAB LES Final Result [facility] [address] [place] [phone] * POCT Urinalysis (09/06/2025 1:32 PM [...] 09/06/2025 1:32 PM EDT us Thea Briana MEDICAL OFFICE COORDINATOR POINT OF CARE TEST ENTER/EDIT ORDERABLES Final Result * Magnesium (09/03/2025 2:08 PM EDT) Pathologist [facility] Magnesium 2.0 1.6 - 2.6 mg/dL [facility] 09/03/2025 2:08 PM EDT 09/03/2025 2:12 PM EDT us Generic External Data Provider LAB BLOOD ORDERAB LES Final Result Performing Organization Address City/State/[facility] Co de Phone Number [facility] [address] [place] [address] [phone] * CTA Chest PE Protocal (07/28/2025 8:35 PM EDT) Only the most recent of2 resultswithin the time period is included. Anatomical Region Laterality Modality Body, Chest Computed Tomogra phy 07/28/2025 8:35 PM EDT Narrative 07/28/2025 8:36 PM EDT [address] [address] [address] Scan Report Signed Patient: Noreen Wing MR#: [id number] : 1945 Acct:[id number] Age/Sex: 79 / F ADM Date: 07/28/25 Loc: HO.ED Attending Dr: Ordering Physician: Cuco Amador Date of Service: 07/28/25 Procedure(s): CT angio chest PE protocol Accession Number(s): [id number] cc: Cuco Amador; Name,Nitin PIKE Report Number: [id number]: Total DLP = 311.00 mGy-cm Reason for [...] in OV> 07/28/252034 DD/ 34 TD/TT: 07/28/252034 Web Methods Developer: Procedure Note Donotuseinterpreter, Image - 07/28/[address] [place] [address] [address] Scan Report Signed Patient: Noreen WingMR#: [id number] : 3Acct:[id number] Age/Sex: 79 / FADM Date: 07/28/25 Loc: HO.ED Attending Dr: Ordering Physician: Cuco Amador Date of Service: 07/28/25 Procedure(s): CT angio chest PE protocol Accession Number(s): [id number] cc: Cuco Amador; Name,Nitin PIKE Report Number: [id number]: Total DLP = 311.00 mGy-cm Reason for [...] in OV> 07/28/252034 DD/ 34 TD/TT: 07/28/252034 Web Methods Developer: [facility] External Provider IMG CT PROCEDURES Final Result * CT Abdomen Pelvis w/ Contrast (07/28/2025 8:01 PM EDT) Anatomical Region Laterality Modality Body, Pelvis, Abdomen Computed T omography 07/28/2025 8:01 PM EDT Narrative 07/28/2025 8:03 PM EDT [place] [address] CT Scan Report Signed Patient: Noreen Wing MR#: [id number] : 1945 Acct:[id number] Age/Sex: 79 / F ADM Date: 07/28/25 Loc: HO.ED Attending Dr: Ordering Physician: Cuco Amador Date of Service: 07/28/25 Procedure(s): CT abdomen pelvis w IV con Accession Number(s): [id number] cc: Cuco Amador; Name,Nitin PIKE Report Number: [id number]: Total DLP = 539.64 mGy-cm Reason for [...] in OV> 07/28/252001 DD/ 00 TD/TT: 07/28/252000 Web Methods Developer: Procedure Note Donotuseinterpreter, Image - 07/28/[address] [place] [address] [address] Scan Report Signed Patient: Noreen WingMR#: [id number] : 1945cct:[id number] Age/Sex: 79 / FADM Date: 07/28/25 Loc: HO.ED Attending Dr: Ordering Physician: Cuco Amador Date of Service: 07/28/25 Procedure(s): CT abdomen pelvis w IV con Accession Number(s): [id number] cc: Cuco Amador; Name,Nitin PIKE Report Number: [id number]: Total DLP = 539.64 mGy-cm Reason for [...] in OV> 07/28/252001 DD/ 00 TD/TT: 07/28/252000 Web Methods Developer: [facility] External Provider IMG CT PROCEDURES Final Result * Partial Thromboplastin Time, Activated (APTT) (07/28/2025 5:01 PM EDT) Partial Thromboplastin Time 31.4 26.7 - 34.1 SEC [facility] 07/28/2025 5:01 PM EDT 07/28/2025 5:05 PM EDT Generic External Data Provider LAB BLOOD ORDERAB LES Final Result Performing Organization Address [facility] Co de Phone Number [facility] [address] [place] [phone] * Lipase (07/28/2025 5:01 PM EDT) Lipase 31 8 - 78 U/L [facility] 07/28/2025 5:01 PM EDT 07/28/2025 5:05 PM EDT Generic External Data Provider LAB BLOOD ORDERAB LES Final Result Performing Organization Address [facility] Co de Phone Number [facility] [address] [place] [phone] * POCT HGB A1C (01/10/2025 11:02 AM EST) Hemoglobin A1C 5.1 4.0 - 6.0 % QC Media Lot # [id number] Lot# Expiration Date Blood 01/10/2025 11:0 2 AM EST Result [facility] Nitin Echevarria MD POINT OF CARE TEST [...] LDL-C. Jack SS et al. JITENDRA. 2013;310(19): 2783-8423 (http://education.[employer]/faq/BGF777) Non-HDL Cholesterol 88 <130 mg/dL (calc) CONVERTED [...] Most Recently Relevant to Health Maintenance Insurance GROUP [employer] OPT[employer] (HMO D-SNP) SARA PHILLIPS [id number] Care Teams Airport Security Screener Relationship Specialty Start Date End Date Name, MD Nitin [address] [place] [address] PCP - General Family Medicine 08/26/17 [facility] 09/01/24
--- OUTSIDE RECORDS SUMMARY | 2025-10-09 13:08 | XMS_ITS | Encounter Summary ---
Author Organization [employer] Address 75 [facility] 7t [place] [address] Care Team Providers Care Ruby Software Developer Name Role Phone Name, Nitin PIKE Primary Care Provider [phone] Reason for Visit * Reason Comments Med Refill Encounter Details Date Type Department Care Team ([facility] st Contact Info) Description 06/28/2024 Refill [facility] [address] [place], [place] [phone] Mel Anguiano FNP [address] [place] [address] Social History Tobacco Use Types Packs/Day Years [...] Description 11/07/2025 10:00 AM EST Office Visit [facility] 230 [place] [address] Name, MD Nitin 230 [place] [address] documented as of this encounter Visit Diagnoses Not on filedocumented in this encounter Additional Health Concerns Assessment Noted Time PHQ-9 Depression Total Score: 6 02/13/20 24 9:14 AM EDT documented as of this encounter Care Teams Ruby Software Developer Relationship Specialty Start Date End Date Name, MD Nitin [address] [place] [address] PCP - General Family Medicine 08/26/17 [facility] 09/01/24 documented as of this encounter
--- OUTSIDE RECORDS SUMMARY | 2025-10-09 13:08 | XMS_ITS | Clinical Summary ---
Author Organization [facility] Facility Address [address] [address] Care Team Providers Care Lubrication Servicer Name Role Phone Name, Nitin PIKE Primary Care Provider [phone] Allergies Active Allergy Reactions Criticality Noted Date [...] patient's age to complete this topic Insurance [place] [address] MCR ([id number]) [place] [phone] [facility] MCR ([id number]) Care Teams Lubrication Servicer Relationship Specialty Start Date End Date Name, MD Nitin [address] [place] [address] PCP - General Internal Medicine 10/15/22
--- OUTSIDE RECORDS SUMMARY | 2025-10-09 13:08 | XMS_ITS | Encounter Summary ---
Author Organization [employer] Address 75 [facility] 7t [place] [address] Care Team Providers Care Pole Framer Name Role Phone Name, Nitin PIKE Primary Care Provider [phone] Reason for Visit * Reason Comments Med Refill Encounter Details Date Type Department Care Team (Late st Contact Info) Description 04/20/2025 Refill [facility] [address] [place] [address] Zechariah Cheung MD 230 [place] [address] Allergic rhinitis, unspecified seasonality, unspecified trigger Social [...] 10:00 AM EST Office Visit [facility] [address] [place] [address] NameNitin MD [address] [place] [address] documented as of this encounter Visit Diagnoses Diagnosis Allergic rhinitis, unspecified seasonality, unspecified trigger documented in this encounter Additional Health Concerns Assessment Noted Time PHQ-9 Depression Total Score: 6 02/13/20 9:14 AM EDT documented as of this encounter Care Teams Pole Framer Relationship Specialty Start Date End Date Nitin Echevarria MD [address] [place] [address] PCP - General Family Medicine 08/26/17 [facility] 09/01/24 documented as of this encounter
--- OUTSIDE RECORDS SUMMARY | 2025-10-09 13:08 | XMS_ITS | Encounter Summary ---
Author Organization [employer] Address 75 [facility] 7t [place] [address] Care Team Providers Care Dairy Associate Name Role Phone Name, Nitin PIKE Primary Care Provider [phone] Reason for Visit * Reason Comments Med Refill Encounter Details Date Type Department Care Team (Late st Contact Info) Description 07/25/2025 Refill [facility] [address] [place], [place] [phone] Name, MD Nitin 230 [place] [address] Social History Tobacco Use Types Packs/Day Years [...] 11/07/2025 10:00 AM EST Office Visit [facility] [address] [place] [address] NameNitin MD [address] [place] [address] documented as of this encounter Visit Diagnoses Not on filedocumented in this encounter Additional Health Concerns Assessment Noted Time PHQ-9 Depression Total Score: 3 04/29/20 25 9:41 AM EDT documented as of this encounter Care Teams Dairy Associate Relationship Specialty Start Date End Date NameNitin MD [address] [place] [address] PCP - General Family Medicine 08/26/17 [facility] 09/01/24 documented as of this encounter
--- OUTSIDE RECORDS SUMMARY | 2025-10-09 13:08 | XMS_ITS | Encounter Summary ---
Author Organization [employer] Address 75 [facility] 7[address] [place] [address] Care Team Providers Care Production Team Advisor Name Role Phone Name, Nitin PIKE Primary Care Provider [phone] Reason for Visit * Reason Onset Date Comments Hospital Follow-up 10/20/2024 Encounter Details Date Type Department Care Team ([facility] Contact Info) Description 10/20/2024 Telephone [facility] 230 [place], [place] [phone] Name, MD Nitin 230 [place] [address] Hospital Follow-up Social History Tobacco Use Types [...] pt requesting a HDF appt. Hospital: [facility] Date of admission: 10/17 Discharge date: 10/19 Diagnosed: High Blood Pressure and Fever Contact pt at [phone] *Send message to [facility] Clinical Care Coordinators documented in this encounter Plan of Treatment Upcoming Encounters Date Type Department Care Team (Late st Contact Info) Description 11/07/2025 10:00 AM EST Office Visit [facility] 230 [place] [address] Name, MD Nitin 230 [place] [address] documented as of this encounter Visit Diagnoses Not on filedocumented in this encounter Additional Health Concerns Assessment Noted Time PHQ-9 Depression Total Score: 6 02/13/20 24 9:14 AM EDT documented as of this encounter Care Teams Production Team Advisor Relationship Specialty Start Date End Date Name, MD Nitin 230 [place] [address] PCP - General Family Medicine 08/26/17 [facility] 09/01/24 documented as of this encounter
--- OUTSIDE RECORDS SUMMARY | 2025-10-09 13:08 | XMS_ITS | Encounter Summary ---
Author Organization [employer] Address 75 [facility] 7t [place] [address] Care Team Providers Care Major General Name Role Phone Name, Nitin PIKE Primary Care Provider [phone] Reason for Visit * Reason Onset Date Comments ER Follow-up 05/04/2024 Encounter Details Date Type Department Care Team ([facility] Contact Info) Description 05/04/2024 Telephone [facility] 230 [place], [place] [phone] Name, MD Nitin 230 [place] [address] ER Follow-up Social History Tobacco Use Types [...] 11:01 AM EDT T/C to pt. Through [employer] id - [id number] for below message, No answer. LVM to call back [phone] . * Telephone Encounter - Adithya Solorzano - 05/04/2024 9:35 AM EDT Noreen with [facility] calling to report ED visit on : Date: 04/28 Hospital: [facility] Seen for: UTI, Nausea, Rash. Noreen advised will be forwarding message to team nurses. Please contact pt at [phone]. documented in this encounter Plan of Treatment Upcoming Encounters Date Type Department Care Team (Late st Contact Info) Description 11/07/2025 10:00 AM EST Office Visit [facility] [address] [place] [address] Name, MD Nitin [address] [place] [address] documented as of this encounter Visit Diagnoses Not on filedocumented in this encounter Additional Health Concerns Assessment Noted Time PHQ-9 Depression Total Score: 6 02/13/20 9:14 AM EDT documented as of this encounter Care Teams Major General Relationship Specialty Start Date End Date Name, MD Nitin [address] [place] [address] PCP - General Family Medicine 08/26/17 [facility] 09/01/24 documented as of this encounter
--- OUTSIDE RECORDS SUMMARY | 2025-10-09 13:09 | XMS_ITS | Encounter Summary ---
Author Organization [employer] Address 75 [facility] 7[address] [place] [address] Care Team Providers Care Apprentice Machinist Outside Name Role Phone Name, Nitin PIKE Primary Care Provider [phone] Reason for Visit * Reason Onset Date Comments triage 12/18/2022 Encounter Details Date Type Department Care Team ([facility] st Contact Info) Description 12/18/2022 Telephone [facility] 230 [place], [place] [phone] Name, MD Nitin 230 [place] [address] triage Social History Tobacco Use Types Packs/Day [...] 12/18/2022 2:35 PM EST Called pt. Via [employer] cake decorator [id number] Eduardo. Pt. States that she has a [...] phone. Please reach out to pt. With Malagasy speaking another time to see what her [...] Office Visit [facility] [address] [place] [address] Name, MD Nitin 230 [place] [address] documented as of this encounter Visit Diagnoses Not on filedocumented in this encounter Care Teams Apprentice Machinist Outside Relationship Specialty Start Date End Date Name, MD Nitin 230 [place] [address] PCP - General Family Medicine 08/26/17 [facility] 09/01/24 documented as of this encounter
--- OUTSIDE RECORDS SUMMARY | 2025-10-09 13:09 | XMS_ITS | Encounter Summary ---
Author Organization [employer] Address 75 [facility] 7[address] [place] [address] Care Team Providers Care Pole Tester Name Role Phone Name, Nitin PIKE Primary Care Provider [phone] Reason for Visit * Reason Comments Med Refill Encounter Details Date Type Department Care Team (Late Contact Info) Description 03/02/2023 Refill [facility] [address] [place] [address] Karely Patiño MD [address] [place] [address] [phone] Social History Tobacco Use Types Packs/Day Years [...] Office Visit [facility] [address] [place] [address] Name, MD Nitin [address] [place] [address] documented as of this encounter Visit Diagnoses Not on filedocumented in this encounter Care Teams Pole Tester Relationship Specialty Start Date End Date Name, MD Nitin 230 [place] [address] PCP - General Family Medicine 08/26/17 [facility] 09/01/24 documented as of this encounter
--- OUTSIDE RECORDS SUMMARY | 2025-10-09 13:09 | XMS_ITS | Encounter Summary ---
Author Organization [employer] Address 75 [facility] 7[place] [address] Care Team Providers Care Labor Custodian Name Role Phone Name, Nitin PIKE Primary Care Provider [phone] Encounter Details Date Type Department Care Team (Late st Contact Info) Description 11/06/2022 Orders Only [facility] & PEDS [address] [place], [place] [phone] Lisha Kelly LPN Social History Tobacco Use [...] [facility] 230 [place] [address] NameNitin MD 230 [place] [address] documented as of this encounter Visit Diagnoses Not on filedocumented in this encounter Care Teams Labor Custodian Relationship Specialty Start Date End Date Nitin Echevarria MD 230 [place] [address] PCP - General Family Medicine 08/26/17 [facility] 09/01/24 documented as of this encounter
--- OUTSIDE RECORDS SUMMARY | 2025-10-09 13:09 | XMS_ITS | Encounter Summary ---
Author Organization [employer] Address 75 [facility] 7t [place] [address] Care Team Providers Care Margin Clerk Name Role Phone Name, Nitin PIKE Primary Care Provider Reason for Visit * Reason Onset Date Comments Order(s) 12/09/2023 Encounter Details Date Type Department Care Team ([facility] Contact Info) Description 12/09/2023 Telephone [facility] 230 [place], [place] [phone] Name, MD Nitin 230 [place], [place] [phone] Order(s) Social History Tobacco Use Types Packs/Day [...] orders. If any questions please contact Noreen [phone]. documented in this encounter Plan of Treatment Upcoming Encounters Date Type Department Care Team (Late st Contact Info) Description 11/07/2025 10:00 AM EST Office Visit [facility] [address] [place] [address] Name, MD Nitin 230 [place] [address] documented as of this encounter Visit Diagnoses Not on filedocumented in this encounter Additional Health Concerns Assessment Noted Time PHQ-9 Depression Total Score: 12 023 9:37 AM EDT documented as of this encounter Care Teams Margin Clerk Relationship Specialty Start Date End Date Name, MD Nitin [address] [place] [address] PCP - General Family Medicine 08/26/17 [facility] 09/01/24 documented as of this encounter
--- OUTSIDE RECORDS SUMMARY | 2025-10-09 13:09 | XMS_ITS | Encounter Summary ---
Author Organization [employer] Address 75 [facility] 7[address] [place] [address] Care Team Providers Care Enterprise Manager Name Role Phone Name, Nitin PIKE Primary Care Provider [phone] Reason for Visit * Reason Onset Date Comments Durable Medical Equipment 12/09/2023 Encounter Details Date Type Department Care Team ([facility] st Contact Info) Description 12/09/2023 Telephone [facility] 230 [place], [place] [phone] Name, MD Nitin 230 [place], [place] [phone] Durable Medical Equipment Social History Tobacco Use [...] EST DME rx faxed to [facility] as requested. RN will consult with S nurse and provide referral. * Telephone Encounter - Fozia Jacob RN - 12/09/2023 4:58 PM EST Call returned to [facility] at [facility] [phone] ext. [phone]. [facility] states that [facility] attempted to provide PT at home but pt refused. [facility] pt is requesting outpatient PT. [facility] pt is seeing a counselor more regularly and has agreed to VNA referral. Reports pt has had 3 falls in the past 2 months. [facility] states [facility] no longer has visiting nurses. [facility] recommends [facility] or [facility] for VNA referral. [facility] also requesting DME rx for rollator walker and a straight cane. Requests that DME rx be faxed to [phone]. Advised requests will be sent to pcp. * Telephone Encounter - Adithya Solorzano - 12/09/2023 4:25 PM EST Tc from [facility] requesting DME: Rollator walker . documented in this encounter Plan of Treatment Upcoming Encounters Date Type Department Care Team (Late st Contact Info) Description 11/07/2025 10:00 AM EST Office Visit [facility] 230 [place] [address] Name, MD Nitin [address] [place] [address] documented as of this encounter Visit Diagnoses Not on filedocumented in this encounter Additional Health Concerns Assessment Noted Time PHQ-9 Depression Total Score: 12 023 9:37 AM EDT documented as of this encounter Care Teams Enterprise Manager Relationship Specialty Start Date End Date Name, MD Nitin [facility] [place] [address] PCP - General Family Medicine 08/26/17 [facility] 09/01/24 documented as of this encounter
--- OUTSIDE RECORDS SUMMARY | 2025-10-09 13:09 | XMS_ITS | Encounter Summary ---
Author Organization [employer] Address 75 [facility] 7t [place] [address] Care Team Providers Care Translator Deaf Name Role Phone Name, Nitin PIKE Primary Care Provider [phone] Reason for Visit * Reason Onset Date Comments Verbal Orders 01/02/2024 Encounter Details Date Type Department Care Team ([facility] st Contact Info) Description 01/02/2024 Telephone [facility] 230 [place], [place] [phone] Name, MD Nitin 230 [place] [address] Verbal Orders Social History Tobacco Use Types [...] No answer. LVM to call back on [phone]. * Telephone Encounter - Melany Santos RN - 01/06/2024 10:25 AM EST Please review and advise for below request. * Telephone Encounter - Deana Bazzi - 01/02/2024 3:44 PM EST Tc from [facility] with [facility] requesting verbal orders for discharge pt from Occupational Therapy, due to pt refuses services, please contact [facility] at [phone]. documented in this encounter Plan of Treatment Upcoming Encounters Date Type Department Care Team (Late st Contact Info) Description 11/07/2025 10:00 AM EST Office Visit [facility] [address] [place] [address] Name, MD Nitin 230 [place] [address] documented as of this encounter Visit Diagnoses Not on filedocumented in this encounter Additional Health Concerns Assessment Noted Time PHQ-9 Depression Total Score: 12 023 9:37 AM EDT documented as of this encounter Care Teams Translator Deaf Relationship Specialty Start Date End Date Name, MD Nitin [address] [place] [address] PCP - General Family Medicine 08/26/17 [facility] 09/01/24 documented as of this encounter
--- OUTSIDE RECORDS SUMMARY | 2025-10-09 13:09 | XMS_ITS | Encounter Summary ---
Author Organization [employer] Address 75 [facility] 7t [place] [address] Care Team Providers Care Tonnage Compilation Clerk Name Role Phone Name, Nitin PIKE Primary Care Provider [phone] Encounter Details Date Type Department Care Team ([facility] Contact Info) Description 08/08/2023 Telephone [facility] [address] [place] [address] [phone] Name, MD Nitin [address] [place] [address] [phone] Social History Tobacco Use Types Packs/Day Years [...] Office Visit [facility] [address] [place] [address] [phone] Name, MD Nitin [address] [place] [address] [phone] documented as of this encounter Visit Diagnoses Not on filedocumented in this encounter Additional Health Concerns Assessment Noted Time PHQ-9 Depression Total Score: 12 023 9:37 AM EDT documented as of this encounter Care Teams Tonnage Compilation Clerk Relationship Specialty Start Date End Date Name, MD Nitin 230 [place] [address] PCP - General Family Medicine 08/26/17 [facility] 09/01/24 documented as of this encounter
--- OUTSIDE RECORDS SUMMARY | 2025-10-09 13:09 | XMS_ITS | Encounter Summary ---
Author Organization [employer] Address 75 [facility] 7t [place] [address] Care Team Providers Care Financing Analyst Name Role Phone Name, Nitin PIKE Primary Care Provider [phone] Encounter Details Date Type Department Care Team ([facility] Contact Info) Description 12/17/2022 Orders Only [facility] MED & PEDS [address] [place], [place] [phone] Lisha Kelly LPN Social History Tobacco Use [...] 11/07/2025 10:00 AM EST Office Visit [facility] MEDICINE 230 [place] [address] Nitin Echevarria MD [address] [place] [address] documented as of this encounter Visit Diagnoses Not on filedocumented in this encounter Care Teams Financing Analyst Relationship Specialty Start Date End Date NameNitin MD [address] [place] [address] PCP - General Family Medicine 08/26/17 [facility] 09/01/24 documented as of this encounter
--- OUTSIDE RECORDS SUMMARY | 2025-10-09 13:09 | XMS_ITS | Encounter Summary ---
Author Organization [employer] Address 75 [facility] 7[address] [place] [address] Care Team Providers Care Fly Worker Name Role Phone Name, Nitin PIKE Primary Care Provider [phone] Reason for Visit * Reason Onset Date Comments Verbal Orders 12/15/2023 Encounter Details Date Type Department Care Team ([facility] st Contact Info) Description 12/15/2023 Telephone [facility] 230 [place], [place] [phone] Name, MD Nitin 230 [place] [address] Verbal Orders Social History Tobacco Use Types [...] 12:03 PM EST Tc from [facility] [employer] requesting verbal order to see pt 2 times a week for 4 weeks for Occupational Therapy, please contact [facility] at [phone] documented in this encounter Plan of Treatment Upcoming Encounters Date Type Department Care Team (Late st Contact Info) Description 11/07/2025 10:00 AM EST Office Visit [facility] 230 [place] [address] Name, MD Nitin 230 [place] [address] documented as of this encounter Visit Diagnoses Not on filedocumented in this encounter Additional Health Concerns Assessment Noted Time PHQ-9 Depression Total Score: 12 023 9:37 AM EDT documented as of this encounter Care Teams Fly Worker Relationship Specialty Start Date End Date Name, MD Nitin 230 [place] [address] PCP - General Family Medicine 08/26/17 [facility] 09/01/24 documented as of this encounter
--- OUTSIDE RECORDS SUMMARY | 2025-10-09 13:09 | XMS_ITS | Encounter Summary ---
Author Organization [employer] Address 75 [facility] 7t [place] [address] Care Team Providers Care Electrical Project Engineer Name Role Phone Name, Nitin PIKE Primary Care Provider [phone] Reason for Visit * Reason Onset Date Comments FYI 01/21/2024 ER Follow-up 01/21/2024 Encounter Details Date Type Department Care Team ([facility] st Contact Info) Description 01/21/2024 Telephone [facility] MEDICINE 230 [place], [place] [phone] Name, MD Nitin 230 [place] [address] FYI; ER Follow-up Social History Tobacco Use [...] encounter Miscellaneous Notes * Telephone Encounter - Foiza Jacob RN - 01/21/2024 1:54 PM EDT Message from [facility] ED noted. [facility] note sent to medical records. PCP does not rx Trazodone. Pt to f/u with psych prescriber. Pt is scheduled for f/u with pcp 02/13/24. * Telephone Encounter - Janette Huitron - 01/21/2024 9:45 AM EDT Tc from [facility] with [facility] ED calling in regards to pt. States pt was seen today for anxiety and is requesting trazodone. Will discharge pt with no medication change. Would also like to advise provider, pt was seen at [facility] on 01/17 for anxiety/insomnia as well documented in this encounter Plan of Treatment Upcoming Encounters Date Type Department Care Team (Late st Contact Info) Description 11/07/2025 10:00 AM EST Office Visit [facility] MEDICINE 230 [place] [address] Name, MD Nitin 230 [place] [address] documented as of this encounter Visit Diagnoses Not on filedocumented in this encounter Additional Health Concerns Assessment Noted Time PHQ-9 Depression Total Score: 12 023 9:37 AM EDT documented as of this encounter Care Teams Electrical Project Engineer Relationship Specialty Start Date End Date Name, MD Nitin 230 [place] [address] PCP - General Family Medicine 08/26/17 [facility] 09/01/24 documented as of this encounter
--- OUTSIDE RECORDS SUMMARY | 2025-10-09 13:09 | XMS_ITS | Encounter Summary ---
Author Organization [employer] Address 75 [facility] 7[address] [place] [address] Care Team Providers Care Electric Drill Operator Name Role Phone Name, Nitin PIKE Primary Care Provider [phone] Encounter Details Date Type Department Care Team ([facility] Contact Info) Description 01/06/2023 Orders Only [facility] MED & PEDS [address] [place], [place] [phone] Lisha Kelly LPN Social History Tobacco Use [...] AM EST Office Visit [facility]ICINE 230 [place] [address] NameNitin MD 230 [place] [address] documented as of this encounter Visit Diagnoses Not on filedocumented in this encounter Care Teams Electric Drill Operator Relationship Specialty Start Date End Date NameNitin MD 230 [place] [address] PCP - General Family Medicine 08/26/17 [facility] 09/01/24 documented as of this encounter
--- OUTSIDE RECORDS SUMMARY | 2025-10-09 13:09 | XMS_ITS | Encounter Summary ---
Author Organization [employer] Address 75 [facility] 7t [place] [address] Care Team Providers Care Cotton Roll Packer Name Role Phone Name, Nitin PIKE Primary Care Provider [phone] Reason for Visit * Reason Comments Med Refill Encounter Details Date Type Department Care Team (Late st Contact Info) Description 08/16/2024 Refill [facility] [address] [place], [place] [phone] Name, MD Nitin 230 [place] [address] Heartburn Social History Tobacco Use Types Packs/Day [...] 11/07/2025 10:00 AM EST Office Visit [facility] [address] [place] [address] NameNitin MD [address] [place] [address] documented as of this encounter Visit Diagnoses Diagnosis Heartburn documented in this encounter Additional Health Concerns Assessment Noted Time PHQ-9 Depression Total Score: 6 02/13/20 24 9:14 AM EDT documented as of this encounter Care Teams Cotton Roll Packer Relationship Specialty Start Date End Date NameNitin MD [address] [place] [address] PCP - General Family Medicine 08/26/17 [facility] 09/01/24 documented as of this encounter
--- OUTSIDE RECORDS SUMMARY | 2025-10-09 13:09 | XMS_ITS | Encounter Summary ---
Author Organization [employer] Address 75 [facility] 7[address] [place] [address] Care Team Providers Care Mental Health Specialist Name Role Phone Name, Nitin PIKE Primary Care Provider [phone] Reason for Visit * Reason Onset Date Comments Call Back Request 03/14/2025 Encounter Details Date Type Department Care Team ([facility] st Contact Info) Description 03/14/2025 Telephone [facility] MEDICINE [address] [place], [place] [phone] Name, MD Nitin 230 [place] [address] Call Back Request Social History Tobacco Use [...] Visit [facility] MEDICINE [address] [place] [address] Name, MD Nitin 230 [place] [address] documented as of this encounter Visit Diagnoses Not on filedocumented in this encounter Additional Health Concerns Assessment Noted Time PHQ-9 Depression Total Score: 6 02/13/20 9:14 AM EDT documented as of this encounter Care Teams Mental Health Specialist Relationship Specialty Start Date End Date Name, MD Nitin 230 [place] [address] PCP - General Family Medicine 08/26/17 [facility] 09/01/24 documented as of this encounter
--- OUTSIDE RECORDS SUMMARY | 2025-10-09 13:09 | XMS_ITS | Encounter Summary ---
Author Organization [facility] Address 75 [facility] 7t [place] [address] Care Team Providers Care Icu Manager Name Role Phone Name, Nitin PIKE Primary Care Provider [phone] Reason for Visit * Reason Comments Med Refill Encounter Details Date Type Department Care Team (Late st Contact Info) Description 01/09/2025 Refill [facility] 230 [place], [place] [phone] Name, MD Nitin 230 [place] [address] Hypertension, unspecified type Social History Tobacco Use [...] EST Office Visit [facility] [address] [place] [address] NameNitin MD [address] [place] [address] documented as of this encounter Visit Diagnoses Diagnosis Hypertension, unspecified type documented in this encounter Additional Health Concerns Assessment Noted Time PHQ-9 Depression Total Score: 6 02/13/20 9:14 AM EDT documented as of this encounter Care Teams Icu Manager Relationship Specialty Start Date End Date NameNitin MD [address] [place] [address] PCP - General Family Medicine 08/26/17 [facility] 09/01/24 documented as of this encounter
[2025-10-09 13:26] VITALS: BP 148/76; PULSE 89; RESP 16; TEMP 36.7; O2SAT 97
== END 2025-10-09 13:26 | disposition home or self-care (01) ==
PROVIDERS: Emergency Provider Emergency Medicine Emergency Medical Services; PCP Internal Medicine Geriatric Medicine
DX: F41.1 Generalized anxiety disorder (principal); I12.9 Hypertensive chronic kidney disease with stage 1 through stage 4 chronic kidney disease, or unspecified chronic kidney disease; N18.9 Chronic kidney disease, unspecified; Z79.899 Other long term (current) drug therapy
CPT/HCPCS: 99282

== ENCOUNTER 2025-10-09 22:17 | Emergency (ER) | payer OTHER, SELFPAY ==
[2025-10-09 22:22] VITALS: BP 136/76; PULSE 99; O2SAT 96
[2025-10-09 22:34] VITALS: BP 157/74; PULSE 99; RESP 20; TEMP 36.9; O2SAT 97; BMI 30.9
--- OUTSIDE RECORDS SUMMARY | 2025-10-10 01:35 | XMS_ITS | Encounter Summary ---
Author Organization [employer] Address 75 [facility] 7[address] [place] [address] Care Team Providers Care Transportation Officer Name Role Phone Name, Nitin PIKE Primary Care Provider [phone] Reason for Visit * Reason Comments Med Refill Encounter Details Date Type Department Care Team (Late st Contact Info) Description 04/20/2025 Refill [facility] 230 [place] [address] Zechariah Cheung MD 230 [place] [address] Allergic rhinitis, unspecified seasonality, unspecified trigger Social [...] Description 11/07/2025 10:00 AM EST Office Visit [facility] 230 [place] [address] NameNitin MD 230 [place] [address] documented as of this encounter Visit Diagnoses Diagnosis Allergic rhinitis, unspecified seasonality, unspecified trigger documented in this encounter Additional Health Concerns Assessment Noted Time PHQ-9 Depression Total Score: 6 02/13/20 9:14 AM EDT documented as of this encounter Care Teams Transportation Officer Relationship Specialty Start Date End Date Nitin Echevarria MD [address] [place] [address] PCP - General Family Medicine 08/26/17 [facility] 09/01/24 documented as of this encounter
--- OUTSIDE RECORDS SUMMARY | 2025-10-10 01:35 | XMS_ITS | Encounter Summary ---
Author Organization [employer] Address 75 [facility] [address] [place] [address] Care Team Providers Care Library Attendant Name Role Phone Name, Nitin PIKE Primary Care Provider [phone] Reason for Visit * Reason Comments Med Refill Encounter Details Date Type Department Care Team (Late st Contact Info) Description 08/17/2025 Refill [facility] MEDICINE 230 [place], [place] [phone] Miryam Riley NP 230 [place], [place] [phone] Hypertension, unspecified type Social History Tobacco Use [...] 10:00 AM EST Office Visit [facility] MEDICINE [address] [place] [address] NameNitin MD 230 [place] [address] documented as of this encounter Visit Diagnoses Diagnosis Hypertension, unspecified type documented in this encounter Additional Health Concerns Assessment Noted Time PHQ-9 Depression Total Score: 3 04/29/20 25 9:41 AM EDT documented as of this encounter Care Teams Library Attendant Relationship Specialty Start Date End Date Name, MD Nitin [address] [place] [address] PCP - General Family Medicine 08/26/17 [facility] 09/01/24 documented as of this encounter
--- OUTSIDE RECORDS SUMMARY | 2025-10-10 01:35 | XMS_ITS | Encounter Summary ---
Author Organization [employer] Address 75 [facility] 7[address] [place] [address] Care Team Providers Care Roll Bucker Name Role Phone Name, Nitin PIKE Primary Care Provider [phone] Reason for Visit * Reason Onset Date Comments ER Follow-up 05/31/2024 Encounter Details Date Type Department Care Team ([facility] Contact Info) Description 05/31/2024 Telephone [facility] [address] [place], [place] [phone] Name, MD Nitin 230 [place] [address] ER Follow-up Social History Tobacco Use Types [...] 05/31/2024 1:36 PM EDT T/C to Pat ([facility]) [phone] for below message, no answer. LVM to call back on [phone]. * Telephone Encounter - Melany Santos RN - 05/31/2024 1:32 PM EDT DAVID T/C to pt. Through My Digital [place] id - [id number] for below message, pt. Had recent fall and ED visit at [facility]. RN will request GRACE piedra from [facility]. Pt. Is doing good, states I am tired andsleeping. Pt. Dose not has any question or concern right now. Pt. Already has HDF apt. Schedule on 06/10/2024. Pt. Advised to give call to [facility] if any questions or concerns. Pt. Verbally [...] Office Visit [facility] 230 [place] [address] Name, MD Nitin 230 [place] [address] documented as of this encounter Visit Diagnoses Not on filedocumented in this encounter Additional Health Concerns Assessment Noted Time PHQ-9 Depression Total Score: 6 02/13/20 24 9:14 AM EDT documented as of this encounter Care Teams Roll Bucker Relationship Specialty Start Date End Date Name, MD Nitin [address] [place] [address] PCP - General Family Medicine 08/26/17 [facility] 09/01/24 documented as of this encounter
--- OUTSIDE RECORDS SUMMARY | 2025-10-10 01:35 | XMS_ITS | Encounter Summary ---
Author Organization [employer] Address 75 [facility] 7t [place] [address] Care Team Providers Care Fishing Floats Assembler Name Role Phone Name, Nitin PIKE Primary Care Provider [phone] Reason for Visit * Reason Onset Date Comments Hospital Follow-up 10/20/2024 Encounter Details Date Type Department Care Team ([facility] Contact Info) Description 10/20/2024 Telephone [facility] MEDICINE 230 [place], [place] [phone] Name, MD Nitin 230 [place] [address] Hospital Follow-up Social History Tobacco Use Types [...] from pt requesting a HDF appt. Hospital: [facility] Date of admission: 10/17 Discharge date: 10/19 Diagnosed: High Blood Pressure and Fever Contact pt at [phone] *Send message to [place] Clinical Care Coordinators documented in this encounter Plan of Treatment Upcoming Encounters Date Type Department Care Team (Late st Contact Info) Description 11/07/2025 10:00 AM EST Office Visit [facility] MEDICINE 230 [place] [address] Name, MD Nitin 230 [place] [address] documented as of this encounter Visit Diagnoses Not on filedocumented in this encounter Additional Health Concerns Assessment Noted Time PHQ-9 Depression Total Score: 6 02/13/20 24 9:14 AM EDT documented as of this encounter Care Teams Fishing Floats Assembler Relationship Specialty Start Date End Date Name, MD Nitin 230 [place] [address] PCP - General Family Medicine 08/26/17 [facility] 09/01/24 documented as of this encounter
--- OUTSIDE RECORDS SUMMARY | 2025-10-10 01:35 | XMS_ITS | Encounter Summary ---
Author Organization [employer] Address 75 [facility] 7[address] [place] [address] Care Team Providers Care Unhairing Machine Operator Name Role Phone Name, Nitin PIKE Primary Care Provider [phone] Reason for Visit * Reason Onset Date Comments Med Refill 11/08/2024 Encounter Details Date Type Department Care Team ([facility] st Contact Info) Description 11/08/2024 Telephone [facility] MEDICINE 230 [place], [place] [phone] Name, MD Nitin 230 [place] [address] Med Refill Social History Tobacco Use Types [...] be sent to: [facility] - [place], [place] - [address] [facility] documented in this encounter Plan of Treatment Upcoming Encounters Date Type Department Care Team ([facility] st Contact Info) Description 11/07/2025 10:00 AM EST Office Visit [facility] MED[facility] 230 [place] [address] Name, MD Nitin 230 [place] [address] documented as of this encounter Visit Diagnoses Not on filedocumented in this encounter Additional Health Concerns Assessment Noted Time PHQ-9 Depression Total Score: 6 02/13/20 24 9:14 AM EDT documented as of this encounter Care Teams Unhairing Machine Operator Relationship Specialty Start Date End Date Name, MD Nitin 230 [place] [address] PCP - General Family Medicine 08/26/17 [facility] 09/01/24 documented as of this encounter
--- OUTSIDE RECORDS SUMMARY | 2025-10-10 01:35 | XMS_ITS | Encounter Summary ---
Author Organization [employer] Address 75 [facility] 7t [place] [address] Care Team Providers Care Marketing Manager Health Communications Name Role Phone Name, Nitin PIKE Primary Care Provider [phone] Reason for Visit * Reason Onset Date Comments Referral 08/24/2025 Encounter Details Date Type Department Care Team ([facility] st Contact Info) Description 08/24/2025 Telephone [facility] MEDICINE 230 [place], [place] [phone] Name, MD Nitin 230 [place] [address] Referral Social History Tobacco Use Types Packs/Day [...] DATE: 09/21/25 TIME: 10 am Facility Name: [facility] PT Type of Specialist: Physical therapy Facility Phone # : [phone] Fax #: [phone] documented in this encounter Plan of Treatment Upcoming Encounters Date Type Department Care Team (Late st Contact Info) Description 11/07/2025 10:00 AM EST Office Visit [facility] MEDICINE 230 [place], [place] [phone] Name, MD Nitin [address] [place] [address] documented as of this encounter Visit Diagnoses Not on filedocumented in this encounter Additional Health Concerns Assessment Noted Time PHQ-9 Depression Total Score: 3 04/29/20 9:41 AM EDT documented as of this encounter Care Teams Marketing Manager Health Communications Relationship Specialty Start Date End Date Name, MD Nitin [address] [place] [address] PCP - General Family Medicine 08/26/17 [facility] 09/01/24 documented as of this encounter
--- OUTSIDE RECORDS SUMMARY | 2025-10-10 01:35 | XMS_ITS | Clinical Summary ---
Author Organization [facility] Address [address] [place] [address] Phone Care Team Providers Care Anesthesia Associate Name Role Phone Physician, No Pcp [...] [facility] [address] [place] [address], from Last 3 Months or Most Recently Relevant to Health Maintenance Insurance [facility] MEDICARE Member Subscriber Plan / Payer (Ef fective 2021-Present) Name:Noreen Wing Relation to Subscriber:Self Name:Noreen Wing Payer ID:[id number] Group ID:[id number] Type:Not on file Address: [address] [address] [address] Care Teams Anesthesia Associate Relationship Specialty Start Date End Date Physician, No Pcp PCP - General 09/22/24
--- OUTSIDE RECORDS SUMMARY | 2025-10-10 01:35 | XMS_ITS | Encounter Summary ---
Author Organization [employer] Address 75 [facility] 7t [place] [address] Care Team Providers Care Tangible Personal Property Appraiser Name Role Phone Name, Nitin PIKE Primary Care Provider [phone] Reason for Visit * Reason Comments Med Refill Encounter Details Date Type Department Care Team ([facility] st Contact Info) Description 04/01/2024 Refill [facility] MEDICINE 230 [place], [place] [phone] Name, MD Nitin 230 [place] [address] Rash Social History Tobacco Use Types Packs/Day [...] Description 11/07/2025 10:00 AM EST Office Visit [facility] MEDICINE [address] [place] [address] NameNitin MD [address] [place] [address] documented as of this encounter Visit Diagnoses Diagnosis Rash Rash and other nonspecific skin eruption documented in this encounter Additional Health Concerns Assessment Noted Time PHQ-9 Depression Total Score: 6 02/13/20 24 9:14 AM EDT documented as of this encounter Care Teams Tangible Personal Property Appraiser Relationship Specialty Start Date End Date NameNitin MD [address] [place] [address] PCP - General Family Medicine 08/26/17 [facility] 09/01/24 documented as of this encounter
--- OUTSIDE RECORDS SUMMARY | 2025-10-10 01:35 | XMS_ITS | Encounter Summary ---
Author Organization [employer] Address 75 [facility] 7[address] [place] [address] Care Team Providers Care Gym Teacher Name Role Phone Name, Nitin PIKE Primary Care Provider [phone] Reason for Visit * Reason Onset Date Comments ER Follow-up 05/04/2024 Encounter Details Date Type Department Care Team ([facility] Contact Info) Description 05/04/2024 Telephone [facility] 230 [place], [place] [phone] Name, MD Nitin 230 [place] [address] ER Follow-up Social History Tobacco Use Types [...] 11:01 AM EDT T/C to pt. Through [employer] id - [id number] for below message, No answer. LVM to call back [phone] . * Telephone Encounter - Adithya Solorzano - 05/04/2024 9:35 AM EDT Noreen with [facility] calling to report ED visit on : Date: 04/28 Hospital: [facility] Seen for: UTI, Nausea, Rash. Noreen advised will be forwarding message to team nurses. Please contact pt at [phone]. documented in this encounter Plan of Treatment Upcoming Encounters Date Type Department Care Team (Late st Contact Info) Description 11/07/2025 10:00 AM EST Office Visit [facility] 230 [place] [address] Name, MD Nitin [address] [place] [address] documented as of this encounter Visit Diagnoses Not on filedocumented in this encounter Additional Health Concerns Assessment Noted Time PHQ-9 Depression Total Score: 6 02/13/20 9:14 AM EDT documented as of this encounter Care Teams Gym Teacher Relationship Specialty Start Date End Date Name, MD Nitin [address] [place] [address] PCP - General Family Medicine 08/26/17 [facility] 09/01/24 documented as of this encounter
--- OUTSIDE RECORDS SUMMARY | 2025-10-10 01:36 | XMS_ITS | Clinical Summary ---
Author Organization [facility] Address [address] [address] Care Team Providers Care Repair Miller Name Role Phone Name, Nitin PIKE Primary Care Provider [phone] Allergies Active Allergy Reactions Criticality Noted Date [...] patient's age to complete this topic [place] [address] MCR ([id number]) [place] [address] [facility] MCR ([id number]) Care Teams Repair Miller Relationship Specialty Start Date End Date Name, MD Nitin [address] [place] [address] PCP - General Internal Medicine 10/15/22
--- OUTSIDE RECORDS SUMMARY | 2025-10-10 01:36 | XMS_ITS | Encounter Summary ---
Author Organization [employer] Address 75 [facility] 7[address] [place] [address] Care Team Providers Care Retail Receiving Clerk Name Role Phone Name, Nitin PIKE Primary Care Provider [phone] Encounter Details Date Type Department Care Team ([facility] st Contact Info) Description 05/26/2023 Orders Only [facility] MEDICINE 230 [place] [address] Noreen Fox MD 230 [place] [address] Social History Tobacco Use Types Packs/Day Years [...] Office Visit [facility] MEDICINE [address] [place] [address] Name, MD Nitin 230 [place] [address] documented as of this encounter Visit Diagnoses Not on filedocumented in this encounter Care Teams Retail Receiving Clerk Relationship Specialty Start Date End Date Name, MD Nitin 230 [place] [address] PCP - General Family Medicine 08/26/17 [facility] 09/01/24 documented as of this encounter
--- OUTSIDE RECORDS SUMMARY | 2025-10-10 01:36 | XMS_ITS | Encounter Summary ---
Author Organization [employer] Address 75 [facility] 7[address] [place] [address] Care Team Providers Care Shooting Gallery Operator Name Role Phone Name, Nitin PIKE Primary Care Provider [phone] Reason for Visit * Reason Comments Med Refill Encounter Details Date Type Department Care Team (Late st Contact Info) Description 08/16/2024 Refill [facility] [address] [place], [place] [phone] Name, MD Nitin 230 [place] [address] Heartburn Social History Tobacco Use Types Packs/Day [...] 11/07/2025 10:00 AM EST Office Visit [facility] MED[facility]INE [address] [place] [address] NameNitin MD [address] [place] [address] documented as of this encounter Visit Diagnoses Diagnosis Heartburn documented in this encounter Additional Health Concerns Assessment Noted Time PHQ-9 Depression Total Score: 6 02/13/20 24 9:14 AM EDT documented as of this encounter Care Teams Shooting Gallery Operator Relationship Specialty Start Date End Date NameNitin MD [address] [place] [address] PCP - General Family Medicine 08/26/17 [facility] 09/01/24 documented as of this encounter
--- OUTSIDE RECORDS SUMMARY | 2025-10-10 01:36 | XMS_ITS | Data Portability ---
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 She called today because she insists on having the catheter removed. It was removed by the party plan sales consultant with the understand ing that if she can't void, she will need to go the the ER. The patient agreed with this plan. [id number] Rohit Benton MD [facility] - [address] [address] 02/06/2024 15:33:16 02/09/2024 18:20:42 Chronic retention of urine [id number] R33.8 Has bunn catheter which was recently [...] [employer] Member ID Guarantor Name 02/09/2024 1 [facility] - DOS ON OR AFTER 2023 - DUAL ELIGIBLE - USP OPTIONS AND ONE CARE (MEDICARE REPLACEMENT/ADV ANTAGE - HMO) Noreen Wing [id number] Noreen Wing Notes Date Note Type Note Provider Name and Address Organization Details Recorded Time 01/31/2024 text/html ROS as noted in the HPI [facility] Nurse Triage Notes (Joana Dominique): Reason For Request: Bunn catheter malfunction/painful Chief Complaints: UTI/Pyelonephritis, Equipment-Related Allergies: No Known Comments: Panamanian speaking member who denies any PMH, denies [...] KAYE Verified name//address Epifanio Mcintyre MD [address] [facility],[address], [place], [address], [employer] 01/31/2024 19:05:57 02/06/2024 text/html ROS as noted in the HPI HPI: Member asked for HV tomorrow after 10 AM if possible. Treated at the [facility] ER today, for F/u leaking, stated is [...] son Jame Wing. Member is 78 y/o Panamanian speaking female who [place] [address] [facility] with her son. Member has multiple [...] sees her BH counselor weekly and Prescriber LOANS CONSULTANT Amasa monthly if needed or every 2-3 months, .................... .................... .................... .................... .................... .................... .................... . [facility] Nurse Triage Notes (Zafar Irving): Comments: Reviewed HPI .................... .................... .................... .................... .................... .................... .................... . Independent Trader Note From [place]: Pt sts doesn [...] appt Friday. Pt son was used as ticket marker. Pt education on signs indicating the ER. Independent Trader Allergies: Clindamycin .................... .................... .................... .................... .................... .................... .................... . Disposition: Fulfilled Rohit Benton MD [address] [facility],[address], [place], [address], [employer] 02/06/2024 17:58:19 OBGyn Episode No OBEpisode recorded.
--- OUTSIDE RECORDS SUMMARY | 2025-10-10 01:36 | XMS_ITS | Clinical Summary ---
Author Organization [employer] Address [address] [place] [address] [address] [place] [address] Care Team Providers Care Fisher Gill Net Name Role Phone Name, Nitin PIKE Primary Care Provider [phone] Allergies Active Allergy Reactions Criticality Noted Date [...] MOUTH EVERY 8 HOURS NEEDED FOR PAIN (GIBRALTARIAN LABEL) 90 tablet Active omeprazole (PriLOSEC) 20 [...] AND IN THE EVENING 60 tablet 10/04/20 8:07 AM EST Active Diclofenac Sodium 1 % gelIndications:Ac rampart right-sided low back pain without sciatica Apply [...] daily for 7 days. 14 tablet 2024 meclizine (Antivert) 25 MG tabletIndications :Vertigo Take 1 tablet (25 mg) by mouth if needed in the morning, at noon, and at bedtime for dizziness for up to 10 days. 30 tablet 09/29/20 25 9:50 AM EST 2024 Active Problems Problem Noted Date Diagnosed [...] because it calms her down. I called [facility] pharmacy to attempt a med rec they instructed me that she is on med box and one week at a time prescriptions because she would break into her med boxes to take more Ambien or xanax. She is being seen by Izzy Peera at [facility]. He is aware of her [...] left I received a call from the [facility] pharmacy instructing me that she was [...] Data 09/29/2025 8:40 AM EST Office Visit [facility] [address] [place] [address] Zach Javier MD Acute right-sided low back pain without sciatica (Primary Dx); Vertigo 09/29/2025 Travel 09/28/2025 Refill [facility] [address] [place] [address] Name, MD Nitin Vitamin D deficiency 09/27/2025 Refill [facility] [address] [place] [address] Nitin Echevarria MD 09/22/[address] [address] Nitin Echevarria MD Nurse Triage 09/22/2025 Orders Only GENERIC EXTERNAL DATA DEPARTMENT Provider, Generic External Data 09/21/[address] [address] Nitin Echevarria MD Request For Order(s); Referral 09/19/2025 Refill [facility] [address] [place] [address] Nitin Echevarria MD 09/19/2025 Orders Only GENERIC EXTERNAL DATA DEPARTMENT Provider, Generic External Data 09/18/2025 Orders Only [facility] External Provider, [facility] 09/17/2025 Orders Only GENERIC EXTERNAL DATA DEPARTMENT Provider, Generic External Data 09/09/[address] [address] Thea Warren FNP Results 09/06/2025 1:30 PM EDT Office Visit [address] [address] Thea Warren, [employer] Acute pain of left knee (Primary Dx); Urinary frequency; Acute cystitis without hematuria 09/06/2025 Orders Only [address] [address] Thea Warren [employer] 09/06/2025 Travel 09/05/[address] [address] Nitin Echevarria MD Chart Prep 09/03/2025 Orders Only GENERIC EXTERNAL DATA DEPARTMENT Provider, Generic External Data 08/30/2025 Patient Outreach [facility] [address] [place] [address] Nitin Echevarria MD Pre-visit Planning ([facility] unable to reach) 08/24/[address] [address] Nitin Echevarria MD Referral 08/24/[address] [address] Nitin Echevarria MD Verbal Order 08/22/2025 Orders Only [facility] External Provider, [facility] 08/18/2025 Orders Only GENERIC EXTERNAL DATA DEPARTMENT Provider, Generic External Data 08/17/2025 Refill [facility] [address] [place] [address] Nitin Echevarria MD 08/17/2025 Refill [facility] [address] [place] [address] Miryam Riley NP Hypertension, unspecified type 08/15/2025 Refill [facility] [address] [place] [address] Nitin Echevarria MD Heartburn 08/14/2025 Refill [facility] [address] [place], [place] [phone] Nitin Echevarria MD Heartburn; Vitamin D deficiency 08/09/2025 11:15 AM EDT Office Visit [facility] [address] [place] [phone] Nitin Echevarria MD Generalized anxiety disorder with panic attacks (Primary Dx); Encounter for immunization; Chronic bilateral low back pain without sciatica 08/09/2025 Travel 08/01/2025 Refill [facility] [address] [place] [phone] Nitin Echevarria MD Vitamin D deficiency 07/28/2025 Orders Only GENERIC EXTERNAL DATA DEPARTMENT Provider, Generic External Data 07/27/2025 Orders Only [facility] External Provider, [facility] 07/26/2025 Orders Only GENERIC EXTERNAL DATA DEPARTMENT Provider, Generic External Data 07/26/2025 Telephone [facility] [address] [place] [address] Nitin Echevarria MD ER Follow-up 07/25/2025 Refill [facility] [address] [place] [address] Nitin Echevarria MD 07/25/2025 Refill [facility] [address] [place], [place] [phone] Nitin Echevarria MD 07/18/2025 Refill [facility] [address] [place], [place] [phone] Miryam Riley NP 07/18/2025 Orders Only GENERIC EXTERNAL DATA DEPARTMENT Provider, Generic External Data 07/17/2025 Refill [facility] [address] [place] [phone] Name, MD Nitin Hypertension, unspecified type from [...] Average Number of Drinks Not on file Frequency of Binge Drinking Not on file [...] AM EST Office Visit [facility] [address] [place] [address] Name, MD Nitin [address] [place] [address] Health Maintenance Due Date Last Done Comments [...] time period is included. Color Urine Yellow [facility] Appearance Urine Clear [facility] PH 6.0 5.0 - 9.0 [facility] Glucose Urine UA Negative Negative mg/dL [facility] Urine Blood Negative Negative [facility] Specific [place] - Urine 1.015 1.005 - 1.025 [facility] Urine Protein Negative Neg-Trace mg/dL [facility] Urine Ketones Negative Negative mg/dL [facility] Nitrite Urine Negative Negative [facility] Leukocyte Esterase Urine Moderate (2+)(A) Negative [facility] RBC Urine 0-2 0 - 2 /HPF [facility] Urine WBC 11-20(A) 0 - 5 /HPF [facility] Urine Squamous Epithelial Cell 0-2 0 - 2 /HPF [facility] Urine Bacteria None Seen None Seen [facility] Hyaline Casts, Urine 0-2 0 - 2 /LPF [facility] 10/03/2025 11:1 8 PM EST 10/03/2025 11:21 PM EST Narrative [facility] - 10/03/2025 11:29 PM EST [id number], Clean Catch us Generic External Data Provider LAB URINE ORDERAB LES Final Result [facility] [address] [place] [phone] * Culture, Urine, Routine (10/03/2025 12:00 AM EST) Only the most recent of6 resultswithin the time period is included. Urine Urine specimen obtained by clean catch procedure / Unknown 10/03/2025 10/03/2025 Comment:UACC Narrative [facility] - 10/05/2025 11:28 AM EST Urine Culture Report Result Urine Culture 10,000 to 50,000 cfu/ml Urine Culture Mixed bacterial jann characteristic of Urine Culture urogenital contamination. Specimen Source: Urine clean catch us Generic External Data Provider LAB MICROBIOLOGY - GENERAL ORDERABLES Final Result [facility] [address] [place] [address] [phone] * (ABNORMAL) CBC auto differential (09/22/2025 7:21 AM EST) Only the most recent of6 resultswithin the time period is included. White Blood Count 6.6 4.8 - 10.8 X10*3/uL [facility] Red Blood Count 4.39 4.20 - 5.50 X10*6/uL [facility] Hemoglobin 12.2 12.0 - 16.0 g/dl [facility] Hematocrit 37.3 37.0 - 47.0 % [facility] Mean Corpuscular Volume 85.0 80.0 - 98.0 fL [facility] Mean Corpuscular Hemoglobin 27.8 27.0 - 33.0 pg [facility] Mean Corpuscular HGB Conc 32.7 31.0 - 35.0 g/dl [facility] Red Cell Distribution Width 13.8 11.0 - 16.0 % [facility] Platelet Count 295 160 - 400 X10*3/uL [facility] Mean Platelet Volume 8.1(L) 9.4 - 12.3 fL [facility] Neutrophils Percent Auto 70.6 45 - 73 % [facility] Imm Gran Pct Auto 0.5(H) 0.0 - 0.4 % [facility] Lymphocytes Percent Auto 18.3(L) 20 - 40 % [facility] Monocytes Percent Auto 9.4 2 - 11 % [facility] Eosinophils Percent Auto 0.6 0 - 4 % [facility] Basophils Percent Auto 0.6 0 - 2 % [facility] NRBC Pct Auto 0.0 0.0 - 0.2 /100WBC [facility] Neutrophils Absolute Auto 4.7 2.0 - 8.3 x10*3/uL [facility] Imm Gran Abs Auto 0.03 0.00 - 0.03 X10*3/uL [facility] Lymphocytes Absolute Auto 1.2 1.2 - 4.9 X10*3/uL [facility] Monocytes Absolute Auto 0.6 0.1 - 1.2 X10*3/uL [facility] Eosinophils Absolute Auto 0.0 0.0 - 0.4 X10*3/uL [facility] Basophils Absolute Auto 0.0 0.0 - 0.2 X10*3/uL [facility] NRBC Abs Auto 0.000 0.0 - 0.012 X10*3/uL [facility] 09/22/2025 7:21 AM EST 09/22/2025 7:23 AM EST us Generic External Data Provider LAB BLOOD ORDERAB LES Final Result [facility] [address] [place] [phone] * (ABNORMAL) Basic Metabolic Panel (09/22/2025 7:21 AM EST) Only the most recent of3 resultswithin the time period is included. Sodium 137 135 - 145 mmol/L [facility] Potassium 4.7 3.3 - 5.1 mmol/L [facility] Chloride 100 96 - 108 mmol/L [facility] Carbon Dioxide 29 22 - 29 mmol/L [facility] Anion Gap 13 12 - 20 [facility] Urea Nitrogen (BUN) 18(H) 9 - 16 mg/dL [facility] Creatinine, Serum 0.85 0.5 - 1.4 mg/dL [facility] Creatinine Clr Calc Pharmacy 56.1 [facility] Comment:Provided height and weight: 162.56 cm,89.3 kg.eGFR (calculated from the MDRD study equation) and eCrCl(calculated from the Cockcroft-Gault equation) are based ondifferent parameters and may not yield comparable results.If eCrCl result is absurd, please check patient'sheight/weight. Estimated Glomerular Filt Rate >60 [facility] Comment:Chronic Kidney Disea se: Estimated GFR < 60 mL/min/1.55r2Wtaprb Kidney Disease: Estimated GFR < 15 mL/min/1.73m2 Glucose 105 60 - 115 mg/dL [facility] Calcium 10.0 8.4 - 10.2 mg/dL [facility] 09/22/2025 7:21 AM EST 09/22/2025 7:23 AM EST us Generic External Data Provider LAB BLOOD ORDERAB LES Final Result Performing Organization Address City/State/[facility] Co de Phone Number [facility] [address] [place] [phone] * CT Head w/o Contrast (09/19/2025 3:43 AM EST) Only the most recent of2 resultswithin the time period is included. Anatomical Region Laterality Modality Head, Neck Computed Tomogra phy 09/19/2025 3:43 AM EST Narrative 09/19/2025 3:45 AM EST [address] [address] [address] Scan Report Signed Patient: Noreen Wing MR#: [id number] : 1945 Acct:[id number] Age/Sex: 79 / F ADM Date: 09/18/25 Loc: HO.ED Attending Dr: Ordering Physician: Marium Ny DO Date of Service: 09/19/25 Procedure(s): CT head/brain wo IV con Accession Number(s): [id number] cc: Marium Ny DO; [facility] Report Number: [id number]: Total DLP = 747.02 mGy-cm Reason for [...] in OV> 09/19/25343 DD/ 2 TD/TT: 09/19/25342 Medical Education Coordinator: Procedure Note Donotuseinterpreter, Image - 09/19/[address] [place] [address] [address] Scan Report Signed Patient: Noreen WingMR#: [id number] : 1945cct:[id number] Age/Sex: 79 / FADM Date: 09/18/25 Loc: HO.ED Attending Dr: Ordering Physician: Marium Ny DO Date of Service: 09/19/25 Procedure(s): CT head/brain wo IV con Accession Number(s): [id number] cc: Marium Ny DO; [facility] Report Number: [id number]: Total DLP = 747.02 mGy-cm Reason for [...] in OV> 09/19/25343 DD/ 2 TD/TT: 09/19/25342 Medical Education Coordinator: [facility] External Provider IMG CT PROCEDURES Edited Result - Final * CT Cervical Spine w/o Contrast (09/19/2025 3:42 AM EST) Only the most recent of2 resultswithin the time period is included. Anatomical Region Laterality Modality Spine, C-spine Computed Tomogra phy 09/19/2025 3:42 AM EST Narrative 09/19/2025 3:43 AM EST [place] [address] CT Scan Report Signed Patient: Noreen Wing MR#: [id number] : 1945 Acct:[id number] Age/Sex: 79 / F ADM Date: 09/18/25 Loc: HO.ED Attending Dr: Ordering Physician: Marium Ny DO Date of Service: 09/19/25 Procedure(s): CT cervical spine wo IV con Accession Number(s): [id number] cc: Marium Ny DO; [facility] Report Number: [id number]: Total DLP = 428.77 mGy-cm Reason for Exam: fall, head trauma CLINICAL HISTORY: fall, head trauma CT cervical spine without contrast Comparison: CT/SR - CT CERVICAL SPINE WO IV CON - 09/03/25 13:35 EDT Findings: The alignment of the cervical spine is normal. There is no fracture. There is ksxo-lh-dzyabggu C5-6 degenerative disc disease. There are posterior osteophytes at C5-6 probably causing nrqa-rp-ptqnhbev central canal stenosis. There is multilevel facet [...] in OV> 09/19/25341 DD/ 1 TD/TT: 09/19/25341 Medical Education Coordinator: Procedure Note Donotuseinterpreter, Image - 09/19/[address] [place] [address] [address] Scan Report Signed Patient: Jennifer Wing#: [id number] : 1945cct:[id number] Age/Sex: 79 / FADM Date: 09/18/25 Loc: HO.ED Attending Dr: Ordering Physician: Marium Ny DO Date of Service: 09/19/25 Procedure(s): CT cervical spine wo IV con Accession Number(s): [id number] cc: Marium Ny DO; [facility] Report Number: [id number]: Total DLP = 428.77 mGy-cm Reason for Exam: fall, head trauma CLINICAL HISTORY: fall, head trauma CT cervical spine without contrast Comparison: CT/SR - CT CERVICAL SPINE WO IV CON - 09/03/25 13:35 EDT Findings: The alignment of the cervical spine is normal. There is no fracture. There is zrjd-jj-ldarhapn C5-6 degenerative disc disease. There are posterior osteophytes at C5-6 probably causing kvdp-ok-rppqcnwl central canal stenosis. There is multilevel facet [...] in OV> 09/19/25341 DD/ 1 TD/TT: 09/19/25341 Medical Education Coordinator: [facility] External Provider IMG CT PROCEDURES Edited Result - Final * High Sensitivity Troponin I (09/19/2025 12:26 AM EST) Only the most recent of6 resultswithin the time period is included. TROPONIN I HIGH SENSITIVITY <2.7 <3.5 - 17.0 ng/L [facility] Comment:The Mckeon high sens itivity Troponin-I results should beused in conjunction with other diagnostic information suchas ECG, clinical observations and information, and patientsymptoms to aid in the diagnosis of [place]. 09/19/2025 12:2 6 AM EST 09/19/2025 12:28 AM EST Generic External Data Provider LAB BLOOD ORDERAB LES Final Result Performing Organization Address City/State/[facility] Co de Phone Number [facility] [address] [place] [phone] * Prothrombin Time-INR (09/19/2025 12:26 AM EST) Only the most recent of2 resultswithin the time period is included. Prothrombin Time 12.5 11.2 - 13.5 SEC [facility] INTERNATIONAL NORM RATIO 1.0 0.9 - 1.1 [facility] Comment:INTERNATIONAL NORMAL IZED RATIO (INR) [...] Provider LAB BLOOD ORDERAB LES Final Result [facility] [address] [place] [address] [phone] * (ABNORMAL) Comprehensive Metabolic Panel (09/19/2025 12:26 AM EST) Only the most recent of4 resultswithin the time period is included. Sodium 136 135 - 145 mmol/L [facility] Potassium 4.1 3.3 - 5.1 mmol/L [facility] Chloride 101 96 - 108 mmol/L [facility] Carbon Dioxide 25 22 - 29 mmol/L [facility] Anion Gap 14 12 - 20 [facility] Urea Nitrogen (BUN) 33(H) 9 - 16 mg/dL [facility] Creatinine, Serum 0.99 0.5 - 1.4 mg/dL [facility] Creatinine Clr Calc Pharmacy 45.4 [facility] Comment:Provided height and weight: 157.48 cm,86.183 kg.eGFR (calculated from the MDRD study equation) and eCrCl(calculated from the Cockcroft-Gault equation) are based ondifferent parameters and may not yield comparable results.If eCrCl result is absurd, please check patient'sheight/weight. Estimated Glomerular Filt Rate 54 [facility] Comment:Chronic Kidney Disea se: Estimated GFR < 60 mL/min/1.08y1Iyokeh Kidney Disease: Estimated GFR < 15 mL/min/1.73m2 Glucose 108 60 - 115 mg/dL [facility] Calcium 8.9 8.4 - 10.2 mg/dL [facility] Bilirubin, Total 0.3 0.0 - 1.0 mg/dL [facility] Aspartate Amino Transferase 26 5 - 31 U/L [facility] Alanine Aminotransferase 14 0 - 31 U/L [facility] Total Protein 7.6 6.5 - 8.0 g/dL [facility] Albumin Level 4.1 3.5 - 5.0 g/dL [facility] Alkaline Phosphatase 92 39 - 117 U/L [facility] 09/19/2025 12:2 6 AM EST 09/19/2025 12:28 AM EST us Generic External Data Provider LAB BLOOD ORDERAB LES Final Result Performing Organization Address City/State/[facility] Co de Phone Number [facility] [address] [place] [phone] * XR Knee 4+ Views Left (09/18/2025 3:36 PM EST) Only the most recent of2 resultswithin the time period is included. Anatomical Region Laterality Modality Lower Extremities, Knee Left Radiogra phic Imaging 09/18/2025 3:36 PM EST Narrative 09/18/2025 3:39 PM EST [address] [address] XRay Report Signed Patient: Noreen Wing MR#: [id number] : 1945 Acct:[id number] Age/Sex: 79 / F ADM Date: 09/18/25 Loc: HO.ED Attending Dr: Ordering Physician: Cuco Amador Date of Service: 09/18/25 Procedure(s): XR knee LT 4V Accession Number(s): [id number] cc: Cuco Amador; Name,Nitin PIKE Reason for [...] 09/18/25 1538 DD/ 1536 TD/TT: 09/18/25 1536 Medical Education Coordinator: Procedure Note Donotuseinterpreter, Image - 09/18/[address] [address] XRay Report Signed Patient: Noreen WingMR#: [id number] : 1945cct:[id number] Age/Sex: 79 / FADM Date: 09/18/25 Loc: HO.ED Attending Dr: Ordering Physician: Cuco Amador Date of Service: 09/18/25 Procedure(s): XR knee LT 4V Accession Number(s): [id number] cc: Cuco Amador; Name,Nitin PIKE Reason for [...] 09/18/25 1538 DD/ 1536 TD/TT: 09/18/25 1536 Medical Education Coordinator: [facility] External Provider IMG XR PROCEDURES Edited Result - Final * Glucose, Whole Blood (09/17/2025 7:24 AM EST) Glucose, Whole Blood 98 60 - 115 mg/dL [facility] Comment:METER #: [id number] 09/17/2025 7:24 AM EST 09/17/2025 7:28 AM EST Generic External Data Provider LAB BLOOD ORDERAB LES Final Result [facility] [address] [place] [phone] * POCT Urinalysis (09/06/2025 1:32 PM [...] Random) 09/06/2025 1:32 PM EDT us Thea Escobaro [employer] POINT OF CARE TEST ENTER/EDIT ORDERABLES Final Result * Magnesium (09/03/2025 2:08 PM EDT) Pathologist [facility] Magnesium 2.0 1.6 - 2.6 mg/dL [facility] 09/03/2025 2:08 PM EDT 09/03/2025 2:12 PM EDT us Generic External Data Provider LAB BLOOD ORDERAB LES Final Result Performing Organization Address City/State/[facility] Co de Phone Number [facility] [address] [place] [phone] [phone] * CTA Chest PE Protocal (07/28/2025 8:35 PM EDT) Only the most recent of2 resultswithin the time period is included. Anatomical Region Laterality Modality Body, Chest Computed Tomogra phy 07/28/2025 8:35 PM EDT Narrative 07/28/2025 8:36 PM EDT [address] [address] [address] Scan Report Signed Patient: Noreen Wing MR#: [id number] : 1945 Acct:[id number] Age/Sex: 79 / F ADM Date: 07/28/25 Loc: HO.ED Attending Dr: Ordering Physician: Cuco Amador Date of Service: 07/28/25 Procedure(s): CT angio chest PE protocol Accession Number(s): [id number] cc: Cuco Amador; Name,Nitin PIKE Report Number: [id number]: Total DLP = 311.00 mGy-cm Reason for [...] OV> 07/28/252034 DD/ 34 TD/TT: 07/28/252034 Medical Education Coordinator: Procedure Note Donotuseinterpreter, Image - 07/28/[address] [place] [address] [address] Scan Report Signed Patient: Noreen WingMR#: [id number] : 3Acct:[id number] Age/Sex: 79 / FADM Date: 07/28/25 Loc: HO.ED Attending Dr: Ordering Physician: Cuco Amador Date of Service: 07/28/25 Procedure(s): CT angio chest PE protocol Accession Number(s): [id number] cc: Cuco Amador; Name,Nitin PIKE Report Number: [id number]: Total DLP = 311.00 mGy-cm Reason for [...] OV> 07/28/252034 DD/ 34 TD/TT: 07/28/252034 Medical Education Coordinator: [facility] External Provider IMG CT PROCEDURES Final Result * CT Abdomen Pelvis w/ Contrast (07/28/2025 8:01 PM EDT) Anatomical Region Laterality Modality Body, Pelvis, Abdomen Computed T omography 07/28/2025 8:01 PM EDT Narrative 07/28/2025 8:03 PM EDT [place] [address] CT Scan Report Signed Patient: Noreen Wing MR#: [id number] : 1945 Acct:[id number] Age/Sex: 79 / F ADM Date: 07/28/25 Loc: HO.ED Attending Dr: Ordering Physician: Cuco Amador Date of Service: 07/28/25 Procedure(s): CT abdomen pelvis w IV con Accession Number(s): [id number] cc: Cuco Amador; Name,Nitin PIKE Report Number: [id number]: Total DLP = 539.64 mGy-cm Reason for [...] OV> 07/28/252001 DD/ 00 TD/TT: 07/28/252000 Medical Education Coordinator: Procedure Note Donotuseinterpreter, Image - 07/28/[address] [place] [address] [address] Scan Report Signed Patient: Noreen WingMR#: [id number] : 1945cct:[id number] Age/Sex: 79 / FADM Date: 07/28/25 Loc: HO.ED Attending Dr: Ordering Physician: Cuco Amador Date of Service: 07/28/25 Procedure(s): CT abdomen pelvis w IV con Accession Number(s): [id number] cc: Cuco Amador; Name,Nitin PIKE Report Number: [id number]: Total DLP = 539.64 mGy-cm Reason for [...] OV> 07/28/252001 DD/ 00 TD/TT: 07/28/252000 Medical Education Coordinator: [facility] External Provider IMG CT PROCEDURES Final Result * Partial Thromboplastin Time, Activated (APTT) (07/28/2025 5:01 PM EDT) Partial Thromboplastin Time 31.4 26.7 - 34.1 SEC [facility] 07/28/2025 5:01 PM EDT 07/28/2025 5:05 PM EDT Generic External Data Provider LAB BLOOD ORDERAB LES Final Result Performing Organization Address [facility] Co de Phone Number [facility] [address] [place] [phone] * Lipase (07/28/2025 5:01 PM EDT) Lipase 31 8 - 78 U/L [facility] 07/28/2025 5:01 PM EDT 07/28/2025 5:05 PM EDT Generic External Data Provider LAB BLOOD ORDERAB LES Final Result Performing Organization Address [facility] Co de Phone Number [facility] [address] [place] [phone] * POCT HGB A1C (01/10/2025 11:02 AM EST) Hemoglobin A1C 5.1 4.0 - 6.0 % QC Media Lot # [id number] Lot# Expiration Date Blood 01/10/2025 11:0 2 AM EST Niitn Echevarria MD POINT OF CARE TEST ENTER/EDIT [...] LDL-C. Jack SS et al. JITENDRA. 2013;310(19): 6937-0316 (http://education.Capeco.Oxatis/faq/ZTV582) Non-HDL Cholesterol 88 <130 mg/dL (calc) CONVERTED [...] NUR[facility] HOME OPTIONS (HMO D-SNP) [place]IPS [id number] Care Teams Fisher Gill Net Relationship Specialty Start Date End Date Name, MD Nitin [address] [place] [address] PCP - General Family Medicine 08/26/17 [facility] 09/01/24
--- OUTSIDE RECORDS SUMMARY | 2025-10-10 01:36 | XMS_ITS | Encounter Summary ---
Author Organization [employer] Address [address] [facility] 7t [place] [address] Care Team Providers Care Family Life Educator Name Role Phone Name, Nitin PIKE Primary Care Provider [phone] Encounter Details Date Type Department Care Team ([facility] Contact Info) Description 08/08/2023 Telephone [facility] MEDICINE [address] [place] [address] [phone] Name, MD Nitin [address] [place] [address] [phone] Social History Tobacco Use Types Packs/Day Years [...] Office Visit [facility] MEDICINE [address] [place] [address] [phone] Name, MD Nitin [address] [place] [address] [phone] documented as of this encounter Visit Diagnoses Not on filedocumented in this encounter Additional Health Concerns Assessment Noted Time PHQ-9 Depression Total Score: 12 023 9:37 AM EDT documented as of this encounter Care Teams Family Life Educator Relationship Specialty Start Date End Date Name, MD Nitin 230 [place] [address] PCP - General Family Medicine 08/26/17 [facility] 09/01/24 documented as of this encounter
--- OUTSIDE RECORDS SUMMARY | 2025-10-10 01:36 | XMS_ITS | Encounter Summary ---
Author Organization [employer] Address [address] [facility] [address] [place] [address] Care Team Providers Care Gis Scientist Name Role Phone Name, Nitin PIKE Primary Care Provider [phone] Reason for Visit * Reason Onset Date Comments Results 08/29/2023 Encounter Details Date Type Department Care Team ([facility] st Contact Info) Description 08/29/2023 Telephone [facility] MEDICINE 230 [place], [place] [phone] Name, MD Nitin 230 [place] [address] Results Social History Tobacco Use Types Packs/Day [...] AM EDT Pt evaluated in [facility] today and is scheduled with pcp 09/03/23. * Telephone Encounter - Janette Huitron - 08/29/2023 4:06 PM EDT Tc from pt requesting a call in regards to urine results. Please contact pt at [phone] (Saudi Arabian) documented in this encounter Plan of Treatment Upcoming Encounters Date Type Department Care Team (Late st Contact Info) Description 11/07/2025 10:00 AM EST Office Visit [facility] MEDICINE [address] [place] [address] Name, MD Nitin [address] [place] [address] documented as of this encounter Visit Diagnoses Not on filedocumented in this encounter Additional Health Concerns Assessment Noted Time PHQ-9 Depression Total Score: 12 023 9:37 AM EDT documented as of this encounter Care Teams Gis Scientist Relationship Specialty Start Date End Date Name, MD Nitin [address] [place] [address] PCP - General Family Medicine 08/26/17 [facility] 09/01/24 documented as of this encounter
--- OUTSIDE RECORDS SUMMARY | 2025-10-10 01:36 | XMS_ITS | Encounter Summary ---
Author Organization [employer] Address 75 [facility] [address] [place] [address] Care Team Providers Care Lithographic Artist Name Role Phone Name, Nitin PIKE Primary Care Provider [phone] Reason for Visit * Reason Comments Med Refill Encounter Details Date Type Department Care Team (Late st Contact Info) Description 07/25/2025 Refill [facility] MED & PEDS [address] [place], [place] [phone] Name, MD Nitin 230 [place] [address] Social History Tobacco Use Types Packs/Day Years [...] Office Visit [facility] MEDICINE [address] [place] [phone] NameNitin MD [address] [place] [address] documented as of this encounter Visit Diagnoses Not on filedocumented in this encounter Additional Health Concerns Assessment Noted Time PHQ-9 Depression Total Score: 3 04/29/20 25 9:41 AM EDT documented as of this encounter Care Teams Lithographic Artist Relationship Specialty Start Date End Date NameNitin MD [address] [place] [address] PCP - General Family Medicine 08/26/17 [facility] 09/01/24 documented as of this encounter
--- OUTSIDE RECORDS SUMMARY | 2025-10-10 01:36 | XMS_ITS | Encounter Summary ---
Author Organization [employer] Address 75 [facility] 7[address] [place] [address] Care Team Providers Care Soakers Supervisor Name Role Phone Name, Nitin PIKE Primary Care Provider [phone] Reason for Visit * Reason Comments Med Refill Encounter Details Date Type Department Care Team ([facility] st Contact Info) Description 06/28/2024 Refill [facility] 230 [place], [place] [phone] Mel Anguiano FNP 230 [place] [address] Social History Tobacco Use Types Packs/Day Years [...] EST Office Visit [facility] MEDICINE 230 [place] [address] Name, MD Nitin 230 [place] [address] documented as of this encounter Visit Diagnoses Not on filedocumented in this encounter Additional Health Concerns Assessment Noted Time PHQ-9 Depression Total Score: 6 02/13/20 24 9:14 AM EDT documented as of this encounter Care Teams Soakers Supervisor Relationship Specialty Start Date End Date Name, MD Nitin [address] [place] [address] PCP - General Family Medicine 08/26/17 [facility] 09/01/24 documented as of this encounter
--- OUTSIDE RECORDS SUMMARY | 2025-10-10 01:36 | XMS_ITS | Encounter Summary ---
Author Organization [employer] Address 75 [facility] 7[address] [place] [address] Care Team Providers Care Marketing Business Analyst Name Role Phone Name, Nitin PIKE Primary Care Provider [phone] Reason for Visit * Reason Comments Med Refill Encounter Details Date Type Department Care Team (Late st Contact Info) Description 01/09/2025 Refill [facility] 230 [place], [place] [phone] Name, MD Nitin 230 [place] [address] Hypertension, unspecified type Social History Tobacco Use [...] 10:00 AM EST Office Visit [facility] MEDICINE [address] [place] [address] NameNitin MD [address] [place] [address] documented as of this encounter Visit Diagnoses Diagnosis Hypertension, unspecified type documented in this encounter Additional Health Concerns Assessment Noted Time PHQ-9 Depression Total Score: 6 02/13/20 9:14 AM EDT documented as of this encounter Care Teams Marketing Business Analyst Relationship Specialty Start Date End Date NameNitin MD [address] [place] [address] PCP - General Family Medicine 08/26/17 [facility] 09/01/24 documented as of this encounter
--- OUTSIDE RECORDS SUMMARY | 2025-10-10 01:36 | XMS_ITS | Encounter Summary ---
Author Organization [employer] Address [address] [facility] 7[address] [place] [address] Care Team Providers Care Supervisor Kosher Dietary Service Name Role Phone Name, Nitin PIKE Primary Care Provider [phone] Encounter Details Date Type Department Care Team (Late st Contact Info) Description 11/06/2022 Orders Only [facility] CHC MED & PEDS [address] [place], [place] [phone] Lisha Kelly LPN Social History Tobacco Use [...] Description 11/07/2025 10:00 AM EST Office Visit [facility] MEDICINE 230 [place] [address] NameNitin MD 230 [place] [address] documented as of this encounter Visit Diagnoses Not on filedocumented in this encounter Care Teams Supervisor Kosher Dietary Service Relationship Specialty Start Date End Date Nitin Echevarria MD 230 [place] [address] PCP - General Family Medicine 08/26/17 [facility] 09/01/24 documented as of this encounter
--- OUTSIDE RECORDS SUMMARY | 2025-10-10 01:37 | XMS_ITS | Encounter Summary ---
Author Organization [employer] Address 75 [facility] [address] [place] [address] Care Team Providers Care Perinatal Social Worker Name Role Phone Name, Nitin PIKE Primary Care Provider [phone] Reason for Visit * Reason Onset Date Comments triage 12/18/2022 Encounter Details Date Type Department Care Team ([facility] st Contact Info) Description 12/18/2022 Telephone [facility] MEDICINE 230 [place], [place] [phone] Name, MD Nitin 230 [place] [address] triage Social History Tobacco Use Types Packs/Day [...] 12/18/2022 2:35 PM EST Called pt. Via [employer] interpreter [id number] Eduardo. Pt. States that she has a [...] Description 11/07/2025 10:00 AM EST Office Visit [facility] MEDICINE 230 [place] [address] Name, MD Nitin 230 [place] [address] documented as of this encounter Visit Diagnoses Not on filedocumented in this encounter Care Teams Perinatal Social Worker Relationship Specialty Start Date End Date Name, MD Nitin [address] [place] [address] PCP - General Family Medicine 08/26/17 [facility] 09/01/24 documented as of this encounter
--- OUTSIDE RECORDS SUMMARY | 2025-10-10 01:37 | XMS_ITS | Encounter Summary ---
Author Organization [employer] Address [address] [facility] 7[address] [place] [address] Care Team Providers Care Relationship Advisor Name Role Phone Name, Nitin PIKE Primary Care Provider [phone] Reason for Visit * Reason Onset Date Comments Durable Medical Equipment 12/09/2023 Encounter Details Date Type Department Care Team ([facility] st Contact Info) Description 12/09/2023 Telephone [facility] MEDICINE 230 [place], [place] [phone] Name, MD Nitin 230 [place], [place] [phone] Durable Medical Equipment Social History Tobacco Use [...] AM EST DME rx faxed to [facility] as requested. RN will consult with S nurse and provide referral. * Telephone Encounter - Fozia Jacob RN - 12/09/2023 4:58 PM EST Call returned to [facility] at [facility] [phone] ext. [phone]. [facility] states that [facility] attempted to provide PT at home but pt refused[facility] pt is seeing a counselor more regularly and has agreed to VNA referral. Reports pt has had 3 falls in the past 2 months. [facility] states [facility] no longer has visiting nurses. [facility] recommends [facility] or [facility] for VNA referral. [facility] also requesting DME rx for rollator walker and a straight cane. Requests that DME rx be faxed to [phone]. Advised requests will be sent to pcp. * Telephone Encounter - Adithya Solorzano - 12/09/2023 4:25 PM EST Tc from [facility] requesting DME: Rollator walker . documented in this encounter Plan of Treatment Upcoming Encounters Date Type Department Care Team (Late st Contact Info) Description 11/07/2025 10:00 AM EST Office Visit [facility] MEDICINE 230 [place] [address] Name, MD Nitin [address] [place] [address] documented as of this encounter Visit Diagnoses Not on filedocumented in this encounter Additional Health Concerns Assessment Noted Time PHQ-9 Depression Total Score: 12 023 9:37 AM EDT documented as of this encounter Care Teams Relationship Advisor Relationship Specialty Start Date End Date Name, MD [facility] [place] [address] PCP - General Family Medicine 08/26/17 [facility] 09/01/24 documented as of this encounter
--- OUTSIDE RECORDS SUMMARY | 2025-10-10 01:37 | XMS_ITS | Encounter Summary ---
Author Organization [employer] Address 75 [facility] 7[address] [place] [address] Care Team Providers Care Certified Ski Patroller Name Role Phone Name, Nitin PIKE Primary Care Provider [phone] Reason for Visit * Reason Onset Date Comments FYI 01/21/2024 ER Follow-up 01/21/2024 Encounter Details Date Type Department Care Team ([facility] st Contact Info) Description 01/21/2024 Telephone [facility] MEDICINE [address] [place], [place] [phone] Name, MD Nitin 230 [place] [address] FYI; ER Follow-up Social History Tobacco Use [...] 9:45 AM EDT Tc from [facility] ED calling in regards to pt. States pt was seen today for anxiety and is requesting trazodone. Will discharge pt with no medication change. Would also like to advise provider, pt was seen at [facility] on 01/17 for anxiety/insomnia as well documented in this encounter Plan of Treatment Upcoming Encounters Date Type Department Care Team (Late st Contact Info) Description 11/07/2025 10:00 AM EST Office Visit [facility] MEDICINE [address] [place] [address] Name, MD Nitin 230 [place] [address] documented as of this encounter Visit Diagnoses Not on filedocumented in this encounter Additional Health Concerns Assessment Noted Time PHQ-9 Depression Total Score: 12 023 9:37 AM EDT documented as of this encounter Care Teams Certified Ski Patroller Relationship Specialty Start Date End Date Name, MD Nitin [address] [place] [address] PCP - General Family Medicine 08/26/17 [facility] 09/01/24 documented as of this encounter
--- OUTSIDE RECORDS SUMMARY | 2025-10-10 01:37 | XMS_ITS | Encounter Summary ---
Author Organization [employer] Address 75 [facility] 7t [place] [address] Care Team Providers Care Press Operator Printing Name Role Phone Name, Nitin PIKE Primary Care Provider [phone] Reason for Visit * Reason Onset Date Comments Call Back Request 03/14/2025 Encounter Details Date Type Department Care Team ([facility] st Contact Info) Description 03/14/2025 Telephone [facility] MEDICINE [address] [place], [place] [phone] Name, MD Nitin 230 [place] [address] Call Back Request Social History Tobacco Use [...] Office Visit [facility] MEDICINE [address] [place] [address] Name, MD Nitin [address] [place] [address] documented as of this encounter Visit Diagnoses Not on filedocumented in this encounter Additional Health Concerns Assessment Noted Time PHQ-9 Depression Total Score: 6 02/13/20 9:14 AM EDT documented as of this encounter Care Teams Press Operator Printing Relationship Specialty Start Date End Date Name, MD Nitin 230 [place] [address] PCP - General Family Medicine 08/26/17 [facility] 09/01/24 documented as of this encounter
--- OUTSIDE RECORDS SUMMARY | 2025-10-10 01:37 | XMS_ITS | Encounter Summary ---
Author Organization [employer] Address 75 [facility] 7t [place] [address] Care Team Providers Care Environmental Health And Safety Leader Name Role Phone Name, Nitin PIKE Primary Care Provider [phone] Encounter Details Date Type Department Care Team ([facility] Contact Info) Description 12/17/2022 Orders Only [facility]C MED & PEDS [address] [place], [place] [phone] Lisha Kelly LPN Social History Tobacco Use [...] [facility] MEDICINE 230 [place] [address] Nitin Echevarria MD 230 [place] [address] documented as of this encounter Visit Diagnoses Not on filedocumented in this encounter Care Teams Environmental Health And Safety Leader Relationship Specialty Start Date End Date NameNitin MD [address] [place] [address] PCP - General Family Medicine 08/26/17 [facility] 09/01/24 documented as of this encounter
--- OUTSIDE RECORDS SUMMARY | 2025-10-10 01:37 | XMS_ITS | Encounter Summary ---
Author Organization [employer] Address [address] [facility] 7[address] [place] [address] Care Team Providers Care Management Professional Name Role Phone Name, Nitin PIKE Primary Care Provider [phone] Encounter Details Date Type Department Care Team ([facility] Contact Info) Description 01/06/2023 Orders Only [facility] CHC MED & PEDS [address] [employer], [place] [phone] Lisha Kelly LPN Social History Tobacco Use [...] [facility] 230 [place] [address] NameNitin MD 230 [place] [address] documented as of this encounter Visit Diagnoses Not on filedocumented in this encounter Care Teams Management Professional Relationship Specialty Start Date End Date NameNitin MD 230 [place] [address] PCP - General Family Medicine 08/26/17 [facility] 09/01/24 documented as of this encounter
--- OUTSIDE RECORDS SUMMARY | 2025-10-10 01:37 | XMS_ITS | Encounter Summary ---
Author Organization [employer] Address [address] [facility] 7[address] [place] [address] Care Team Providers Care Vessel Manager Name Role Phone Name, Nitin PIKE Primary Care Provider [phone] Reason for Visit * Reason Onset Date Comments Verbal Orders 01/02/2024 Encounter Details Date Type Department Care Team ([facility] st Contact Info) Description 01/02/2024 Telephone [facility] MEDICINE 230 [place], [place] [phone] Name, MD Nitin 230 [place] [address] Verbal Orders Social History Tobacco Use Types [...] No answer. LVM to call back on [phone]. * Telephone Encounter - Melany Santos RN - 01/06/2024 10:25 AM EST Please review and advise for below request. * Telephone Encounter - Deana Bazzi - 01/02/2024 3:44 PM EST Tc from [facility] with S requesting verbal orders for discharge pt from Occupational Therapy, due to pt refuses services, please contact [facility] at [phone]. documented in this encounter Plan of Treatment Upcoming Encounters Date Type Department Care Team (Late st Contact Info) Description 11/07/2025 10:00 AM EST Office Visit [facility] MEDICINE [address] [place] [address] Name, MD Nitin 230 [place] [address] documented as of this encounter Visit Diagnoses Not on filedocumented in this encounter Additional Health Concerns Assessment Noted Time PHQ-9 Depression Total Score: 12 023 9:37 AM EDT documented as of this encounter Care Teams Vessel Manager Relationship Specialty Start Date End Date Name, MD Nitin [address] [place] [address] PCP - General Family Medicine 08/26/17 [facility] 09/01/24 documented as of this encounter
--- OUTSIDE RECORDS SUMMARY | 2025-10-10 01:37 | XMS_ITS | Encounter Summary ---
Author Organization [employer] Address 75 [facility] 7t [place] [address] Care Team Providers Care Speech Language Assistant Name Role Phone Name, Nitin PIKE Primary Care Provider [phone] Reason for Visit * Reason Onset Date Comments Verbal Orders 12/15/2023 Encounter Details Date Type Department Care Team ([facility] st Contact Info) Description 12/15/2023 Telephone [facility] MEDICINE 230 [place], [place] [phone] Name, MD Nitin 230 [place] [address] Verbal Orders Social History Tobacco Use Types [...] 12:03 PM EST Tc from [facility] with [employer] requesting verbal order to see pt 2 times a week for 4 weeks for Occupational Therapy, please contact [facility] at [phone] documented in this encounter Plan of Treatment Upcoming Encounters Date Type Department Care Team (Late st Contact Info) Description 11/07/2025 10:00 AM EST Office Visit [facility] MEDICINE 230 [place] [address] Name, MD Nitin [address] [place] [address] documented as of this encounter Visit Diagnoses Not on filedocumented in this encounter Additional Health Concerns Assessment Noted Time PHQ-9 Depression Total Score: 12 023 9:37 AM EDT documented as of this encounter Care Teams Speech Language Assistant Relationship Specialty Start Date End Date Name, MD Nitin [address] [place] [address] PCP - General Family Medicine 08/26/17 [facility] 09/01/24 documented as of this encounter
--- OUTSIDE RECORDS SUMMARY | 2025-10-10 01:37 | XMS_ITS | Encounter Summary ---
Author Organization [employer] Address 75 [facility] 7[address] [place] [address] Care Team Providers Care Aircraft Pneudraulics Repairer Name Role Phone Name, Nitin PIKE Primary Care Provider [phone] Reason for Visit * Reason Onset Date Comments Order(s) 12/09/2023 Encounter Details Date Type Department Care Team ([facility] Contact Info) Description 12/09/2023 Telephone [facility] MEDICINE 230 [place], [place] [phone] Name, MD Nitin 230 [place], [place] [phone] Order(s) Social History Tobacco Use Types Packs/Day [...] orders. If any questions please contact Noreen [phone]. documented in this encounter Plan of Treatment Upcoming Encounters Date Type Department Care Team (Late st Contact Info) Description 11/07/2025 10:00 AM EST Office Visit [facility] MEDICINE [address] [place] [address] Name, MD Nitin 230 [place] [address] documented as of this encounter Visit Diagnoses Not on filedocumented in this encounter Additional Health Concerns Assessment Noted Time PHQ-9 Depression Total Score: 12 023 9:37 AM EDT documented as of this encounter Care Teams Aircraft Pneudraulics Repairer Relationship Specialty Start Date End Date Name, MD Nitin [address] [place] [address] PCP - General Family Medicine 08/26/17 [facility] 09/01/24 documented as of this encounter
--- OUTSIDE RECORDS SUMMARY | 2025-10-10 01:37 | XMS_ITS | Encounter Summary ---
Author Organization [employer] Address 75 [facility] 7[address] [place] [address] Care Team Providers Care Android Ui Developer Name Role Phone Name, Nitin PIKE Primary Care Provider [phone] Reason for Visit * Reason Comments Med Refill Encounter Details Date Type Department Care Team (Late Contact Info) Description 03/02/2023 Refill [facility] MEDICINE [address] [place] [address] Karely Patiño MD [address] [place] [address] [phone] Social History Tobacco Use Types Packs/Day Years [...] AM EST Office Visit [facility] MEDICINE [address] [place] [address] Name, MD Nitin [address] [place] [address] documented as of this encounter Visit Diagnoses Not on filedocumented in this encounter Care Teams Android Ui Developer Relationship Specialty Start Date End Date Name, MD Nitin 230 [place] [address] PCP - General Family Medicine 08/26/17 [facility] 09/01/24 documented as of this encounter
--- NOTE | 2025-10-10 01:53 | ED.GENADULT ---
HPI - General Adult General Chief complaint: Dizziness Stated complaint: vomiting, wants refill on nausea meds Time Seen by Provider: 10/10/25 01:47 Source: patient and EMS Mode of arrival: EMS Limitations: no limitations History of Present Illness ED Provider: Dr. Marta Briscoe HPI narrative: Patient comes to the emergency room complaining of anxiety. Patient states that she ran out of her clonazepam and she is due for refill in her medications this morning. Patient denies SI or HI. Also, patient requesting a refill of meclizine, although she is not dizzy at this time, patient states that when she does feel dizzy it helps her a lot. Denies any recent falls Related Data Home Medications ?Medication ?Instructions ?Recorded ?Confirmed omeprazole 20 mg tablet,delayed 20 mg PO DAILY@0630 08/09/20 08/22/25 release aspirin 81 mg tablet,delayed 81 mg PO QAM 01/28/24 08/22/25 release bisacodyl 5 mg tablet,delayed 5 mg PO DAILY PRN constipation 01/28/24 08/22/25 release ferrous sulfate 325 mg (65 mg 325 mg PO DAILY 01/28/24 08/22/25 iron) tablet (FeroSul) melatonin 10 mg tablet,extended 10 mg PO BEDTIME PRN Insomnia 01/28/24 08/22/25 release multivitamin 1 tab PO QAM 01/28/24 08/22/25 rosuvastatin 20 mg tablet 20 mg PO BEDTIME 01/28/24 08/22/25 trazodone 50 mg tablet 50 mg PO BEDTIME 01/28/24 08/22/25 amlodipine 10 mg tablet 10 mg PO DAILY 02/09/24 08/22/25 acetaminophen 500 mg tablet 500 mg PO Q8H PRN pain 08/09/24 08/22/25 cholecalciferol (vitamin D3) 25 25 mcg PO DAILY 08/20/24 08/22/25 mcg (1,000 unit) tablet sertraline 100 mg tablet 100 mg PO DAILY 03/16/25 08/22/25 apixaban 5 mg tablet 5 mg PO BID 08/22/25 08/22/25 clonazepam 0.5 mg tablet 0.5 mg PO TID 08/22/25 08/22/25 fluticasone propionate 50 2 spray intranasal DAILY PRN 08/22/25 08/22/25 mcg/actuation nasal Allergic Symptoms spray,suspension (Flonase Allergy Relief) hydroxyzine HCl 25 mg tablet 10 mg PO DAILY PRN anxiety 08/22/25 08/22/25 ketotifen fumarate 0.025 % (0.035 1 drp ophthalmic (eye) BID PRN 08/22/25 08/22/25 %) eye drops allergies mirtazapine 45 mg tablet 45 mg PO BEDTIME 08/22/25 08/22/25 valsartan 160 mg tablet 160 mg PO QPM 08/22/25 08/22/25 Previous Rx's ?Medication ?Instructions ?Recorded metoprolol succinate 50 mg 50 mg PO DAILY #90 tabs 09/28/20 tablet,extended release 24 hr docusate sodium 100 mg capsule 200 mg (2 x 100 mg) PO BID #20 caps 02/24/25 (Colace) ibuprofen 200 mg tablet 200 mg PO Q6H PRN pain #20 tabs 07/24/25 meclizine 12.5 mg tablet 12.5 mg PO TID PRN dizziness or 07/26/25 vertigo #30 tabs meclizine 25 mg tablet 25 mg PO BID PRN dizziness #14 tabs 09/22/25 meclizine 25 mg tablet 25 mg PO BID PRN dizziness #14 tabs 10/10/25 Allergies Allergy/AdvReac Type Severity Reaction Status Date / Time penicillin G (Penicillin G) Allergy Severe ITCHY/RASH Verified 10/09/25 22:34 Sulfa (Sulfonamide Allergy Severe ITCHY,RASH, Verified 10/09/25 22:34 Antibiotics) (Sulfa rash (Sulfonamides)) trimethoprim (From Bactrim) Allergy Severe HIVES Verified 10/09/25 22:34 Penicillins Allergy Intermediate Hives Verified 10/09/25 22:34 sulfamethoxazole (From Allergy Mild Hives Verified 10/09/25 22:34 Bactrim) Review of Systems Review of Systems: Constitutional : No Weight loss, No Fever, No Chills, No Night Sweats, No Fatigue, No Malaise ENT/Mouth : No Hearing loss, No Ear Pain, No Nasal Congestion, No Sinus Pain, No Hoarseness, No sore throat, No Rhinorrhea, No Swallowing Difficulty Eyes: No Eye Pain, No Swelling, No Redness, No Foreign Body, No Discharge, No Vision Changes Cardiovascular : No Chest Pain, No SOB, No Dyspnea on Exertion, No Orthopnea, No Edema, No Palpitations Respiratory : No Cough, No Sputum, No Wheezing, No Smoke Exposure, No Dyspnea Gastrointestinal : No Nausea, No Vomiting, No Diarrhea, No Constipation, No abdominal Pain, No Hematochezia, No Melena Genitourinary : no irregular bleeding, No Dysuria, No Urinary Frequency, No Hematuria, No Urinary Incontinence, No Urgency, No Flank Pain, No Urinary Flow Changes, No Hesitancy Musculoskeletal : No joint pain, No Myalgias, No Joint Swelling Skin : No Skin Lesions, No rash Neuro : No Weakness, No Numbness, No Paresthesias, No Loss of Consciousness, No Dizziness, No Headache Psych : Complaining of anxiety No Depression, No SI/HI/AH/VH, No Social Issues, Heme/Lymph: No Bruising, No Bleeding,No Lymphadenopathy Endocrine : No Polyuria, No Polydipsia, No Temperature Intolerance [facility] Past Medical History 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 Oriented X3. No acute distress. Eyes: Pupils equal, round and reactive to light. ENT: Pharynx normal. Neck: Normal inspection. Neck supple. No lymph nodes noted. No crepitus CVS: Normal heart rate and rhythm. Pulses normal. Normal S1 and S2 Respiratory: No respiratory distress. Breath sounds normal. No Wheezing. No rales Abdomen: Soft and nontender. No rigidity. No distention. Skin: Skin warm and dry. Normal skin color. Normal skin turgor. Extremities: No lower extremity edema. No Lacerations. No Rash Neuro: Oriented X 3. No motor deficit. No sensory deficit. Moving all extremities. No slurred speech. CN 2 through 12 grossly intact Psych: calm, cooperative, normal affect Vital Signs: Vital Signs - 24 hr 10/09/25 22:34 Temperature 98.5 F Pulse Rate 99 Respiratory Rate 20 Blood Pressure 157/74 H Pulse Oximetry 97 Oxygen Delivery Method Room Air BMI result Body Mass Index 30.9 Medical Decision Making Medical Decision Making MDM Narrative: Patient requesting a refill him meclizine. Patient was given a dose of hydroxyzine. Discharge Plan Discharge Clinical Impression: Anxiety, Medication refill Patient Disposition: Home, Self-Care Instructions: Anxiety (ED), Medicine Refill (ED) Additional Instructions: Please follow-up with your primary care physician tomorrow. If you have any worsening or new symptoms, please return to the emergency room or call 911 Prescriptions: New meclizine 25 mg tablet 25 mg PO BID PRN (Reason: dizziness) Qty: 14 0RF No Action metoprolol succinate 50 mg tablet extended release 24 hr 50 mg PO DAILY Qty: 90 2RF omeprazole 20 mg Tablet,Delayed Release (Dr/Ec) 20 mg PO DAILY@0630 meclizine 12.5 mg tablet 12.5 mg PO TID PRN (Reason: dizziness or vertigo) Qty: 30 0RF trazodone 50 mg tablet 50 mg PO BEDTIME ferrous sulfate [FeroSul] 325 mg (65 mg iron) tablet 325 mg PO DAILY bisacodyl 5 mg tablet,delayed release (DR/EC) 5 mg PO DAILY PRN (Reason: constipation) rosuvastatin 20 mg tablet 20 mg PO BEDTIME aspirin 81 mg tablet,delayed release (DR/EC) 81 mg PO QAM multivitamin Tablet 1 tab PO QAM melatonin 10 mg tablet extended release 10 mg PO BEDTIME PRN (Reason: Insomnia) cholecalciferol (vitamin D3) 25 mcg (1,000 unit) tablet 25 mcg PO DAILY acetaminophen 500 mg tablet 500 mg PO Q8H PRN (Reason: pain) docusate sodium [Colace] 100 mg capsule 200 mg PO BID Qty: 20 0RF ibuprofen 200 mg tablet 200 mg PO Q6H PRN (Reason: pain) Qty: 20 0RF ketotifen fumarate 0.025 % (0.035 %) drops 1 drp ophthalmic (eye) BID PRN (Reason: allergies) mirtazapine 45 mg tablet 45 mg PO BEDTIME clonazepam 0.5 mg tablet 0.5 mg PO TID hydroxyzine HCl 25 mg tablet 10 mg PO DAILY PRN (Reason: anxiety) fluticasone propionate [Flonase Allergy Relief] 50 mcg/actuation spray,suspension 2 spray intranasal DAILY PRN (Reason: Allergic Symptoms) Rx Instructions: administer into each nostril apixaban 5 mg tablet 5 mg PO BID valsartan 160 mg tablet 160 mg PO QPM meclizine 25 mg tablet 25 mg PO BID PRN (Reason: dizziness) Qty: 14 0RF sertraline 100 mg tablet 100 mg PO DAILY amlodipine 10 mg tablet 10 mg PO DAILY Print Language: Bulgarian
[2025-10-10 02:00] VITALS: BP 157/73; PULSE 90; RESP 18; TEMP 36.8; O2SAT 96
[2025-10-10 02:21] VITALS: BP 157/73; PULSE 90; RESP 18; TEMP 36.8; O2SAT 96
== END 2025-10-10 02:27 | disposition home or self-care (01) ==
PROVIDERS: Emergency Provider Emergency Medicine; PCP Internal Medicine Geriatric Medicine
DX: F41.1 Generalized anxiety disorder (principal); Z79.899 Other long term (current) drug therapy; R42 Dizziness and giddiness; R11.2 Nausea with vomiting, unspecified
CPT/HCPCS: 99284

== ENCOUNTER 2025-10-24 01:35 | Emergency (ER) | payer OTHER, SELFPAY ==
[2025-10-24 01:57] VITALS: BP 124/71; BP 186/98; PULSE 100; PULSE 113; RESP 16; TEMP 36.3; O2SAT 100; O2SAT 95; BMI 25.0
--- OUTSIDE RECORDS SUMMARY | 2025-10-24 02:19 | XMS_ITS | Encounter Summary ---
Author Organization [employer] Address [address] [facility] [address] [place] [address] Care Team Providers Care Salesforce Administrator Name Role Phone Name, Nitin PIKE Primary Care Provider [phone] Reason for Visit * Reason Comments Med Refill Encounter Details Date Type Department Care Team (Late st Contact Info) Description 08/17/2025 Refill [facility] [address] [place], [place] [phone] Miryam Riley NP [address] [place], [place] [phone] Hypertension, unspecified type Social History Tobacco Use [...] EST Office Visit [facility] [address] [place] [phone] NameNitin MD [address] [place] [address] documented as of this encounter Visit Diagnoses Diagnosis Hypertension, unspecified type documented in this encounter Additional Health Concerns Assessment Noted Time PHQ-9 Depression Total Score: 3 04/29/20 25 9:41 AM EDT documented as of this encounter Care Teams Salesforce Administrator Relationship Specialty Start Date End Date Name, MD Nitin [address] [place] [phone] PCP - General Family Medicine 08/26/17 [facility] 09/01/24 documented as of this encounter
--- OUTSIDE RECORDS SUMMARY | 2025-10-24 02:19 | XMS_ITS | Encounter Summary ---
Author Organization [employer] Address [address] [facility] [address] [place] [address] Care Team Providers Care Cell Plasterer Name Role Phone Name, Nitin PIKE Primary Care Provider [phone] Reason for Visit * Reason Comments Med Refill Encounter Details Date Type Department Care Team ([facility] st Contact Info) Description 04/01/2024 Refill [facility] [address] [place], [place] [phone] Name, MD Nitin [address] [place] [address] Rash Social History Tobacco Use Types Packs/Day [...] EST Office Visit [facility] [address] [place] [phone] NameNitin MD [address] [place] [phone] documented as of this encounter Visit Diagnoses Diagnosis Rash Rash and other nonspecific skin eruption documented in this encounter Additional Health Concerns Assessment Noted Time PHQ-9 Depression Total Score: 6 02/13/20 24 9:14 AM EDT documented as of this encounter Care Teams Cell Plasterer Relationship Specialty Start Date End Date NameNitin MD [address] [place] [id number] PCP - General Family Medicine 08/26/17 [facility] 09/01/24 documented as of this encounter
--- OUTSIDE RECORDS SUMMARY | 2025-10-24 02:19 | XMS_ITS | Encounter Summary ---
Author Organization [employer] Address [address] [facility] [address] [place] [address] Care Team Providers Care Acid Polymerization Operator Name Role Phone Name, Nitin PIKE Primary Care Provider [phone] Encounter Details Date Type Department Care Team ([facility] Contact Info) Description 08/08/2023 Telephone [facility] [address] [place] [address] [phone] Name, MD Nitin [address] [place] [address] [phone] Social History Tobacco Use Types Packs/Day Years [...] Office Visit [facility] [address] [place] [address] [phone] Name, MD Nitin [address] [place] [address] [phone] documented as of this encounter Visit Diagnoses Not on filedocumented in this encounter Additional Health Concerns Assessment Noted Time PHQ-9 Depression Total Score: 12 023 9:37 AM EDT documented as of this encounter Care Teams Acid Polymerization Operator Relationship Specialty Start Date End Date Name, MD Nitin [address] [place] [address] PCP - General Family Medicine 08/26/17 [facility] 09/01/24 documented as of this encounter
--- OUTSIDE RECORDS SUMMARY | 2025-10-24 02:19 | XMS_ITS | Encounter Summary ---
Author Organization [employer] Address [address] [facility] [address] [place] [address] Care Team Providers Care Human Relations Professor Name Role Phone Name, Nitin PIKE Primary Care Provider [phone] Encounter Details Date Type Department Care Team ([facility] st Contact Info) Description 05/26/2023 Orders Only [facility] [address] [place] [address] Noreen Fox MD [address] [place] [address] Social History Tobacco Use Types Packs/Day Years [...] [facility] [address] [place] [phone] Name, MD Nitin [address] [place] [address] documented as of this encounter Visit Diagnoses Not on filedocumented in this encounter Care Teams Human Relations Professor Relationship Specialty Start Date End Date Name, MD Nitin [address] [place] [address] PCP - General Family Medicine 08/26/17 [facility] 09/01/24 documented as of this encounter
--- OUTSIDE RECORDS SUMMARY | 2025-10-24 02:19 | XMS_ITS | Encounter Summary ---
Author Organization [employer] Address [address] [facility] [address] [place] [address] Care Team Providers Care Pantograph Ii Engraver Name Role Phone Name, Nitin PIKE Primary Care Provider [phone] Reason for Visit * Reason Comments Med Refill Encounter Details Date Type Department Care Team (Late st Contact Info) Description 07/25/2025 Refill [facility] [address] [place], [place] [phone] Name, MD Nitin [address] [place] [address] Social History Tobacco Use Types Packs/Day Years [...] 11/07/2025 10:00 AM EST Office Visit [facility] [address] [place] [phone] NameNitin MD [address] [place] [phone] documented as of this encounter Visit Diagnoses Not on filedocumented in this encounter Additional Health Concerns Assessment Noted Time PHQ-9 Depression Total Score: 3 04/29/20 25 9:41 AM EDT documented as of this encounter Care Teams Pantograph Ii Engraver Relationship Specialty Start Date End Date NameNitin MD [address] [place] [phone] PCP - General Family Medicine 08/26/17 [facility] 09/01/24 documented as of this encounter
--- OUTSIDE RECORDS SUMMARY | 2025-10-24 02:19 | XMS_ITS | Clinical Summary ---
Author Organization [employer] Address [address] [place] [address] [address] [place] [address] Care Team Providers Care Timber Cutter Name Role Phone Name, Nitin PIKE Primary Care Provider [phone] Allergies Active Allergy Reactions Criticality Noted Date [...] (twelve) hours. 30 mL 2 024 Active sertraline (Zoloft) 100 MG tablet Take 100 mg by mouth in the morning. 024 Active meclizine (Antivert) 25 MG tabletIndications :Vertigo [...] for 7 days. 21 tablet 025 Active Ketotifen Fumarate 0.035 % solutionIndicatio ns:Acute conjunctivitis of left eye, unspecified acute conjunctivitis type Administer 1 drop into affected eye(s) if needed in the morning and at bedtime (allergies). 10 mL 025 Active amLODIPine (Norvasc) 10 MG tabletIndications :Hypertension, unspecified type TAKE 1 TABLET BY MOUTH EVERY MORNING 90 tablet 1 025 Active hydrOXYzine pamoate (Vistaril) 50 MG capsuleIndication s:Generalized anxiety disorder with panic attacks TAKE 1 CAPSULE BY MOUTH EVERY 8 HOURS NEEDED FOR ANXIETY 30 capsule 025 Active Acetaminophen Extra Strength 500 MG tabletIndications :Chronic bilateral low back pain without sciatica TAKE 1 TABLET BY MOUTH EVERY 8 HOURS NEEDED FOR PAIN (TAJIK LABEL) 90 tablet 025 Active omeprazole (PriLOSEC) [...] the morning. 90 tablet 3 025 Active docusate sodium (Colace) 100 MG capsule TAKE 2 CAPSULES BY MOUTH TWICE DAILY IN THE MORNING AND EVENING 120 capsule 3 09/27/20 25 8:16 AM EST 025 Active naproxen (Naprosyn) 500 MG tabletIndications :Acute pain of left knee Take 1 tablet with food twice daily as needed for pain 14 tablet 025 Active polyethylene glycol, PEG, 3350 (GaviLAX) 17 GM/SCOOP powder MIX 17G (1 CAPFUL) IN 8 OUNCES OF WATER AND TAKE BY MOUTH TWICE A DAY 238 g 11 09/29/20 25 9:50 AM EST 025 Active Ferrous Sulfate (iron) 325 (65 Fe) MG tablet TAKE 1 TABLET BY MOUTH EVERY MORNING WITH FOOD 30 tablet 025 Active linaCLOtide (Linzess) 145 MCG capsuleIndication s:Chronic constipation TAKE 1 CAPSULE BY MOUTH EVERY MORNING BEFORE BREAKFAST, DO NOT BREAK, CRUSH, DISSOLVE OR CHEW 30 capsule 025 Active cholecalciferol (Vitamin D-3) 25 MCG tabletIndications :Vitamin D deficiency TAKE 1 TABLET BY MOUTH TWICE DAILY IN THE MORNING AND IN THE EVENING 60 tablet 025 Active Bisacodyl EC 5 MG EC tablet TAKE 1 TABLET BY MOUTH EVERY DAY NEEDED FOR CONSTIPATION 30 tablet 3 025 Active Bisacodyl EC 5 MG EC tablet TAKE 1 TABLET BY MOUTH EVERY DAY NEEDED FOR CONSTIPATION. DO NOT BREAK, CRUSH, DISSOLVE OR CHEW 30 tablet 3 09/27/20 1:36 PM EST 2024 Discontinued polyethylene glycol, PEG, 3350 (GaviLAX) 17 GM/SCOOP powder MIX 17G (1 CAPFUL) IN 8 OUNCES OF WATER AND TAKE BY MOUTH TWICE A DAY 238 g 11 024 2024 Discontinued(R eorder (will not trigger notification to Pharmacy)) linaCLOtide (Linzess) 145 MCG capsuleIndication s:Chronic constipation Do not crush or chew.TAKE 1 CAPSULE BY MOUTH EVERY DAY BEFORE BREAKFAST, DO NOT BREAK, CRUSH, DISSOLVE OR CHEW 30 capsule 09/27/20 8:16 AM EST 025 2024 Discontinued cholecalciferol (Vitamin D-3) 25 MCG tabletIndications :Vitamin D deficiency Take 1 tablet (25 mcg) by mouth 2 times daily. 60 tablet 025 2024 Discontinued Ferrous Sulfate (iron) 325 (65 Fe) MG tablet TAKE 1 TABLET BY MOUTH EVERY MORNING WITH FOOD 30 tablet 09/27/20 8:16 AM EST 2024 Discontinued cholecalciferol (Vitamin D-3) 25 MCG tabletIndications :Vitamin D deficiency TAKE 1 TABLET BY MOUTH TWICE DAILY IN THE MORNING AND IN THE EVENING 60 tablet 10/04/20 25 8:07 AM EST 025 2024 Discontinued meclizine (Antivert) 25 MG tabletIndications :Vertigo Take 1 tablet (25 mg) by mouth if needed in the morning, at noon, and at bedtime for dizziness for up to 10 days. 30 tablet 09/29/20 25 9:50 AM EST 025 2024 Diclofenac Sodium 1 % gelIndications:Ac squaxin right-sided low back pain without sciatica Apply 1 Application topically if needed in the morning, at noon, in the evening, and at bedtime (pain) for up to 7 days. 100 g 09/29/20 25 9:50 AM EST 025 2024 Active Problems Problem Noted Date Diagnosed Date Acute cystitis without hematuria 09/09/2025 Viral pharyngitis 11/12/2024 Assessment & Plan (11/12/2024 9:40 AM EST): Symptomatic measures Rest Major neurocognitive disorder ([facility]) 11/02/20 Acute otitis media 04/22/2024 Diarrhea 02/12/2024 [...] precautions advised Stage 3a chronic kidney disease ([facility]) 2022 Headache 01/02/2023 Overview (12/18/2023): Last Assessment [...] calms her down. I called [facility] pharmacy to attempt a med rec [...] received a call from the [facility] pharmacy instructing me that she was [...] Encounters Date Type Department Care Team Description 10/20/2025 Refill [facility] MEDICINE [address] [place] [address] Name, MD Nitin 10/19/2025 Refill [facility] PEDS [address] [place], [place] [phone] Nitin Echevarria MD Chronic constipation; Vitamin D deficiency 10/03/2025 Orders Only GENERIC EXTERNAL DATA DEPARTMENT Provider, Generic External Data 09/29/2025 8:40 AM EST Office Visit [facility] [address] [place] [phone] Zach Javier MD Acute right-sided low back pain without sciatica (Primary Dx); Vertigo 09/29/2025 Travel 09/28/2025 Refill [facility] MED & PEDS [address] [place] [address] Nitin Echevarria MD Vitamin D deficiency 09/27/2025 Refill [facility] MED [facility] PEDS [address] [place] [address] Nitin Echevarria MD 09/22/[address] [address] Nitin Echevarria MD Nurse Triage 09/22/2025 Orders Only GENERIC EXTERNAL DATA DEPARTMENT Provider, Generic External Data 09/21/[address] [address] Nitin Echevarria MD Request For Order(s); Referral 09/19/2025 Refill [facility] MED & PEDS [address] [place] [address] Nitin Echevarria MD 09/19/2025 Orders Only GENERIC EXTERNAL DATA DEPARTMENT Provider, Generic External Data 09/18/2025 Orders Only [facility] External Provider, [facility] 09/17/2025 Orders Only GENERIC EXTERNAL DATA DEPARTMENT Provider, Generic External Data 09/09/[address] [address] Thea Warren FNP Results 09/06/2025 1:30 PM EDT Office Visit [address] [address] Thea Warren FNP Acute pain of left knee (Primary Dx); Urinary frequency; Acute cystitis without hematuria 09/06/2025 Orders Only [address] [address] Thea Warren FNP 09/06/2025 Travel 09/05/2025 Telephone [facility] [address] [place] [address] Nitin Echevarria MD Chart Prep 09/03/2025 Orders Only GENERIC EXTERNAL DATA DEPARTMENT Provider, Generic External Data 08/30/2025 Patient Outreach [facility]ED[facility] [address] [place] [address] Nitin Echevarria MD Pre-visit Planning ([facility] unable to reach) 08/24/2025 Telephone [facility] [address] [place] [address] Nitin Echevarria MD Referral 08/24/2025 Telephone [facility] [address] [place] [address] Nitin Echevarria MD Verbal Order 08/22/2025 Orders Only [facility] External Provider, [facility] 08/18/2025 Orders Only GENERIC EXTERNAL DATA DEPARTMENT Provider, Generic External Data 08/17/2025 Refill [facility] [address] [place] [address] Nitin Echevarria MD 08/17/2025 Refill [facility] [address] [place] [address] Miryam Riley NP Hypertension, unspecified type 08/15/2025 Refill [facility] [address] [place] [address] Nitin Echevarria MD Heartburn 08/14/2025 Refill [facility] MED [facility] PEDS [address] [place] [address] Nitin Echevarria MD Heartburn; Vitamin D deficiency 08/09/2025 11:15 AM EDT Office Visit [facility] [address] [place] [address] Nitin Echevarria MD Generalized anxiety disorder with panic attacks (Primary Dx); Encounter for immunization; Chronic bilateral low back pain without sciatica 08/09/2025 Travel 08/01/2025 Refill [facility] [address] [place] [address] Nitin Echevarria MD Vitamin D deficiency 07/28/2025 Orders Only GENERIC EXTERNAL DATA DEPARTMENT Provider, Generic External Data 07/27/2025 Orders Only [facility] External Provider, [facility] 07/26/2025 Orders Only GENERIC EXTERNAL DATA DEPARTMENT Provider, Generic External Data 07/26/2025 Telephone [facility] [address] [facility] [place] [address] Name, MD Nitin ER Follow-up 07/25/2025 Refill [facility] [address] [place], [place] [phone] Name, MD Nitin 07/25/2025 Refill [facility] [address] [place], [place] [phone] Name, MD Nitin from Last 3 Months [...] Visit [facility] [address] [place], [place] [phone] Name, MD Nitin [address] [place] [address] Health Maintenance Due Date Last Done Comments [...] URINE, ROUTINE Routine 07/26/2025 12:00 AM EDT POCT GLYCATED HEMOGLOBIN, TOTAL [...] time period is included. Color Urine Yellow [facility] Appearance Urine Clear [facility] PH 6.0 5.0 - 9.0 [facility] Glucose Urine UA Negative Negative mg/dL [facility] Urine Blood Negative Negative [facility] Specific Codorus - Urine 1.015 1.005 - 1.025 [facility] Urine Protein Negative Neg-Trace mg/dL [facility] Urine Ketones Negative Negative mg/dL [facility] Nitrite Urine Negative Negative [facility] Leukocyte Esterase Urine Moderate (2+)(A) Negative [facility] RBC Urine 0-2 0 - 2 /HPF [facility] Urine WBC 11-20(A) 0 - 5 /HPF [facility] Urine Squamous Epithelial Cell 0-2 0 - 2 /HPF [facility] Urine Bacteria None Seen None Seen [facility] Hyaline Casts, Urine 0-2 0 - 2 /LPF [facility] 10/03/2025 11:1 8 PM EST 10/03/2025 11:21 PM EST Narrative [facility] - 10/03/2025 11:29 PM EST [id number], Clean Catch us Generic External Data Provider LAB URINE ORDERAB LES Final Result [facility] [address] [place] [phone] * Culture, Urine, Routine (10/03/2025 12:00 AM EST) Only the most recent of6 resultswithin the time period is included. Urine Urine specimen obtained by clean catch procedure / Unknown 10/03/2025 10/03/2025 Comment:[facility] Narrative [facility] - 10/05/2025 11:28 AM EST Urine Culture Report Result Urine Culture 10,000 to 50,000 cfu/ml Urine Culture Mixed bacterial jann characteristic of Urine Culture urogenital contamination. Specimen Source: Urine clean catch us Generic External Data Provider LAB MICROBIOLOGY - GENERAL ORDERABLES Final Result [facility] [address] [place] [phone] * (ABNORMAL) CBC auto differential (09/22/2025 7:21 AM EST) Only the most recent of5 resultswithin the time period is included. White Blood Count 6.6 4.8 - 10.8 X10*3/uL [facility] Red Blood Count 4.39 4.20 - 5.50 X10*6/uL [facility] Hemoglobin 12.2 12.0 - 16.0 g/dl [facility] Hematocrit 37.3 37.0 - 47.0 % [facility] Mean Corpuscular Volume 85.0 80.0 - 98.0 fL [facility] Mean Corpuscular Hemoglobin 27.8 27.0 - 33.0 pg [facility] Mean Corpuscular HGB Conc 32.7 31.0 - 35.0 g/dl [facility] Red Cell Distribution Width 13.8 11.0 - 16.0 % [facility] Platelet Count 295 160 - 400 X10*3/uL [facility] Mean Platelet Volume 8.1(L) 9.4 - 12.3 fL [facility] Neutrophils Percent Auto 70.6 45 - 73 % [facility] Imm Gran Pct Auto 0.5(H) 0.0 - 0.4 % [facility] Lymphocytes Percent Auto 18.3(L) 20 - 40 % [facility] Monocytes Percent Auto 9.4 2 - 11 % [facility] Eosinophils Percent Auto 0.6 0 - 4 % [facility] Basophils Percent Auto 0.6 0 - 2 % [facility] NRBC Pct Auto 0.0 0.0 - 0.2 /100WBC [facility] Neutrophils Absolute Auto 4.7 2.0 - 8.3 x10*3/uL [facility] Imm Gran Abs Auto 0.03 0.00 - 0.03 X10*3/uL [facility] Lymphocytes Absolute Auto 1.2 1.2 - 4.9 X10*3/uL [facility] Monocytes Absolute Auto 0.6 0.1 - 1.2 X10*3/uL [facility] Eosinophils Absolute Auto 0.0 0.0 - 0.4 X10*3/uL [facility] Basophils Absolute Auto 0.0 0.0 - 0.2 X10*3/uL [facility] NRBC Abs Auto 0.000 0.0 - 0.012 X10*3/uL [facility] 09/22/2025 7:21 AM EST 09/22/2025 7:23 AM EST us Generic External Data Provider LAB BLOOD ORDERAB LES Final Result [facility] [address] [place] [phone] * (ABNORMAL) Basic Metabolic Panel (09/22/2025 7:21 AM EST) Only the most recent of2 resultswithin the time period is included. Sodium 137 135 - 145 mmol/L [facility] Potassium 4.7 3.3 - 5.1 mmol/L [facility] Chloride 100 96 - 108 mmol/L [facility] Carbon Dioxide 29 22 - 29 mmol/L [facility] Anion Gap 13 12 - 20 [facility] Urea Nitrogen (BUN) 18(H) 9 - 16 mg/dL [facility] Creatinine, Serum 0.85 0.5 - 1.4 mg/dL [facility] Creatinine Clr Calc Pharmacy 56.1 [facility] Comment:Provided height and weight: 162.56 cm,89.3 kg.eGFR (calculated from the MDRD study equation) and eCrCl(calculated from the Cockcroft-Gault equation) are based ondifferent parameters and may not yield comparable results.If eCrCl result is absurd, please check patient'sheight/weight. Estimated Glomerular Filt Rate >60 [facility] Comment:Chronic Kidney Disea se: Estimated GFR < 60 mL/min/1.05j4Gbhnfs Kidney Disease: Estimated GFR < 15 mL/min/1.73m2 Glucose 105 60 - 115 mg/dL [facility] Calcium 10.0 8.4 - 10.2 mg/dL [facility] 09/22/2025 7:21 AM EST 09/22/2025 7:23 AM EST us Generic External Data Provider LAB BLOOD ORDERAB LES Final Result Performing Organization Address [facility] [place]/State/[facility] Co de Phone Number [facility] [address] [place] [phone] * CT Head w/o Contrast (09/19/2025 3:43 AM EST) Only the most recent of2 resultswithin the time period is included. Anatomical Region Laterality Modality Head, Neck Computed Tomogra phy 09/19/2025 3:43 AM EST Narrative 09/19/2025 3:45 AM EST [address] [address] [address] Scan Report Signed Patient: Noreen Wing MR#: [id number] : 1945 Acct:[id number] Age/Sex: 79 / F ADM Date: 09/18/25 Loc: HO.ED Attending Dr: Ordering Physician: Marium Ny DO Date of Service: 09/19/25 Procedure(s): CT head/brain wo IV con Accession Number(s): [id number] cc: Marium Ny DO; [facility] Report Number: [id number]: Total DLP = 747.02 mGy-cm Reason for [...] in OV> 09/19/25343 DD/ 2 TD/TT: 09/19/25342 Lap Grinder: Procedure Note Donotuseinterpreter, Image - 09/19/[address] [place] [address] [address] Scan Report Signed Patient: Noreen WingMR#: [id number] : 1945cct:[id number] Age/Sex: 79 / FADM Date: 09/18/25 Loc: HO.ED Attending Dr: Ordering Physician: Marium Ny DO Date of Service: 09/19/25 Procedure(s): CT head/brain wo IV con Accession Number(s): [id number] cc: Marium Ny DO; [facility] Report Number: [id number]: Total DLP = 747.02 mGy-cm Reason for [...] in OV> 09/19/25343 DD/ 2 TD/TT: 09/19/25342 Lap Grinder: [facility] External Provider IMG CT PROCEDURES Edited Result - Final * CT Cervical Spine w/o Contrast (09/19/2025 3:42 AM EST) Only the most recent of2 resultswithin the time period is included. Anatomical Region Laterality Modality Spine, C-spine Computed Tomogra phy 09/19/2025 3:42 AM EST Narrative 09/19/2025 3:43 AM EST [place] [address] CT Scan Report Signed Patient: Noreen Wing MR#: [id number] : 1945 Acct:[id number] Age/Sex: 79 / F ADM Date: 09/18/25 Loc: HO.ED Attending Dr: Ordering Physician: Marium Ny DO Date of Service: 09/19/25 Procedure(s): CT cervical spine wo IV con Accession Number(s): [id number] cc: Marium Ny DO; [facility] Report Number: [id number]: Total DLP = 428.77 mGy-cm Reason for Exam: fall, head trauma CLINICAL HISTORY: fall, head trauma CT cervical spine without contrast Comparison: CT/SR - CT CERVICAL SPINE WO IV CON - 09/03/25 13:35 EDT Findings: The alignment of the cervical spine is normal. There is no fracture. There is gtcd-us-rsbejqpk C5-6 degenerative disc disease. There are posterior osteophytes at C5-6 probably causing koiy-dr-mznxsgap central canal stenosis. There is multilevel facet [...] in OV> 09/19/25341 DD/ 1 TD/TT: 09/19/25341 Lap Grinder: Procedure Note Donotuseinterpreter, Image - 09/19/[address] [place] [address] [address] Scan Report Signed Patient: Jennifer Wing#: [id number] : 1945cct:[id number] Age/Sex: 79 / FADM Date: 09/18/25 Loc: .ED Attending Dr: Ordering Physician: Marium Ny DO Date of Service: 09/19/25 Procedure(s): CT cervical spine wo IV con Accession Number(s): [id number] cc: Marium Ny DO; [facility] Report Number: [id number]: Total DLP = 428.77 mGy-cm Reason for Exam: fall, head trauma CLINICAL HISTORY: fall, head trauma CT cervical spine without contrast Comparison: CT/SR - CT CERVICAL SPINE WO IV CON - 09/03/25 13:35 EDT Findings: The alignment of the cervical spine is normal. There is no fracture. There is sotr-ll-xeerzqee C5-6 degenerative disc disease. There are posterior osteophytes at C5-6 probably causing crsj-fs-tbrnwhma central canal stenosis. There is multilevel facet [...] in OV> 09/19/25341 DD/ 1 TD/TT: 09/19/25341 Lap Grinder: [facility] External Provider IMG CT PROCEDURES Edited Result - Final * High Sensitivity Troponin I (09/19/2025 12:26 AM EST) Only the most recent of5 resultswithin the time period is included. TROPONIN I HIGH SENSITIVITY <2.7 <3.5 - 17.0 ng/L [facility] Comment:The Mckeon high sens itivity Troponin-I results should beused in conjunction with other diagnostic information suchas ECG, clinical observations and information, and patientsymptoms to aid in the diagnosis of NV. 09/19/2025 12:2 6 AM EST 09/19/2025 12:28 AM EST Generic External Data Provider LAB BLOOD ORDERAB LES Final Result Performing Organization Address [facility] [place]/[facility] Co de Phone Number [facility] [address] [place] [phone] * Prothrombin Time-INR (09/19/2025 12:26 AM EST) Only the most recent of2 resultswithin the time period is included. Prothrombin Time 12.5 11.2 - 13.5 SEC [facility] INTERNATIONAL NORM RATIO 1.0 0.9 - 1.1 [facility] Comment:INTERNATIONAL NORMAL IZED RATIO (INR) REFERENCE [...] ORDERAB LES Final Result Performing Organization Address City/[facility]/ZIP Co de Phone Number [facility] [address] [place] [phone] * (ABNORMAL) Comprehensive Metabolic Panel (09/19/2025 12:26 AM EST) Only the most recent of4 resultswithin the time period is included. Sodium 136 135 - 145 mmol/L [facility] Potassium 4.1 3.3 - 5.1 mmol/L [facility] Chloride 101 96 - 108 mmol/L [facility] Carbon Dioxide 25 22 - 29 mmol/L [facility] Anion Gap 14 12 - 20 [facility] Urea Nitrogen (BUN) 33(H) 9 - 16 mg/dL [facility] Creatinine, Serum 0.99 0.5 - 1.4 mg/dL [facility] Creatinine Clr Calc Pharmacy 45.4 [facility] Comment:Provided height and weight: 157.48 cm,86.183 kg.eGFR (calculated from the MDRD study equation) and eCrCl(calculated from the Cockcroft-Gault equation) are based ondifferent parameters and may not yield comparable results.If eCrCl result is absurd, please check patient'sheight/weight. Estimated Glomerular Filt Rate 54 [facility] Comment:Chronic Kidney Disea se: Estimated GFR < 60 mL/min/1.42u3Vvznkq Kidney Disease: Estimated GFR < 15 mL/min/1.73m2 Glucose 108 60 - 115 mg/dL [facility] Calcium 8.9 8.4 - 10.2 mg/dL [facility] Bilirubin, Total 0.3 0.0 - 1.0 mg/dL [facility] Aspartate Amino Transferase 26 5 - 31 U/L [facility] Alanine Aminotransferase 14 0 - 31 U/L [facility] Total Protein 7.6 6.5 - 8.0 g/dL [facility] Albumin Level 4.1 3.5 - 5.0 g/dL [facility] Alkaline Phosphatase 92 39 - 117 U/L [facility] 09/19/2025 12:2 6 AM EST 09/19/2025 12:28 AM EST us Generic External Data Provider LAB BLOOD ORDERAB LES Final Result [facility] [address] [place] [address] [phone] * XR Knee 4+ Views Left (09/18/2025 3:36 PM EST) Only the most recent of2 resultswithin the time period is included. Anatomical Region Laterality Modality Lower Extremities, Knee Left Radiogra phic Imaging 09/18/2025 3:36 PM EST Narrative 09/18/2025 3:39 PM EST [place] [address] XRay Report Signed Patient: Noreen Wing MR#: [id number] : 1945 Acct:[id number] Age/Sex: 79 / F ADM Date: 09/18/25 Loc: HO.ED Attending Dr: Ordering Physician: Cuco Amador Date of Service: 09/18/25 Procedure(s): XR knee LT 4V Accession Number(s): [id number] cc: Cuco Amador; Name,Nitin PIKE Reason for [...] 09/18/25 1538 DD/ 1536 TD/TT: 09/18/25 153 Lap Grinder: Procedure Note Donotuseinterpreter, Image - 09/18/2025 [place] [address] XRay Report Signed Patient: Noreen WingMR#: [id number] : 3Acct:[id number] Age/Sex: 79 / FADM Date: 09/18/25 Loc: HO.ED Attending Dr: Ordering Physician: Cuco Amador Date of Service: 09/18/25 Procedure(s): XR knee LT 4V Accession Number(s): [id number] cc: Cuco Amador; Name,Nitin PIKE Reason for [...] 09/18/25 1538 DD/ 1536 TD/TT: 09/18/25 1536 Lap Grinder: [facility] External Provider IMG XR PROCEDURES Edited Result - Final * Glucose, Whole Blood (09/17/2025 7:24 AM EST) Glucose, Whole Blood 98 60 - 115 mg/dL [facility] Comment:METER #: [id number] 09/17/2025 7:24 AM EST 09/17/2025 7:28 AM EST Generic External Data Provider LAB BLOOD ORDERAB LES Final Result [facility] [address] [place] [phone] * POCT Urinalysis (09/06/2025 1:32 PM [...] 09/06/2025 1:32 PM EDT us Thea Briana PICKER/PULLER POINT OF CARE TEST ENTER/EDIT ORDERABLES Final Result * Magnesium (09/03/2025 2:08 PM EDT) Magnesium 2.0 1.6 - 2.6 mg/dL [facility] 09/03/2025 2:08 PM EDT 09/03/2025 2:12 PM EDT us Generic External Data Provider LAB BLOOD ORDERAB LES Final Result Performing Organization Address City/State/[facility] Co de Phone Number [facility] [address] [place] [phone] * CTA Chest PE Protocal (07/28/2025 8:35 PM EDT) Only the most recent of2 resultswithin the time period is included. Anatomical Region Laterality Modality Body, Chest Computed Tomogra phy 07/28/2025 8:35 PM EDT Narrative 07/28/2025 8:36 PM EDT [address] [address] [address] Scan Report Signed Patient: Noreen Wing MR#: [id number] : 1945 Acct:[id number] Age/Sex: 79 / F ADM Date: 07/28/25 Loc: .ED Attending Dr: Ordering Physician: Cuco Amador Date of Service: 07/28/25 Procedure(s): CT angio chest PE protocol Accession Number(s): [id number] cc: Cuco Amador; Name,Nitin PIKE Report Number: [id number]: Total DLP = 311.00 mGy-cm Reason for [...] in OV> 07/28/252034 DD/ 34 TD/TT: 07/28/252034 Lap Grinder: Procedure Note Donotuseinterpreter, Image - 07/28/[address] [place] [address] [address] Scan Report Signed Patient: Jennifer Wing#: [id number] : 3Acct:[id number] Age/Sex: 79 / FADM Date: 07/28/25 Loc: HO.ED Attending Dr: Ordering Physician: Cuco Amador Date of Service: 07/28/25 Procedure(s): CT angio chest PE protocol Accession Number(s): [id number] cc: Cuco Amador; Name,Nitin PIKE Report Number: [id number]: Total DLP = 311.00 mGy-cm Reason for [...] in OV> 07/28/252034 DD/ 34 TD/TT: 07/28/252034 Lap Grinder: [facility] External Provider IMG CT PROCEDURES Final Result * CT Abdomen Pelvis w/ Contrast (07/28/2025 8:01 PM EDT) Anatomical Region Laterality Modality Body, Pelvis, Abdomen Computed T omography 07/28/2025 8:01 PM EDT Narrative 07/28/2025 8:03 PM EDT [place] [address] CT Scan Report Signed Patient: Noreen Wing MR#: [id number] : 1945 Acct:[id number] Age/Sex: 79 / F ADM Date: 07/28/25 Loc: .ED Attending Dr: Ordering Physician: Cuco Amador Date of Service: 07/28/25 Procedure(s): CT abdomen pelvis w IV con Accession Number(s): [id number] cc: Cuco Amador; Name,Nitin PIKE Report Number: [id number]: Total DLP = 539.64 mGy-cm Reason for [...] in OV> 07/28/252001 DD/ 00 TD/TT: 07/28/252000 Lap Grinder: Procedure Note Donotuseinterpreter, Image - 07/28/[address] [place] [address] [address] Scan Report Signed Patient: Noreen WingMR#: [id number] : 1945cct:[id number] Age/Sex: 79 / FADM Date: 07/28/25 Loc: HO.ED Attending Dr: Ordering Physician: Cuco Amador Date of Service: 07/28/25 Procedure(s): CT abdomen pelvis w IV con Accession Number(s): [id number] cc: Cuco Amador; Name,Nitin PIKE Report Number: [id number]: Total DLP = 539.64 mGy-cm Reason for [...] in OV> 07/28/252001 DD/ 00 TD/TT: 07/28/252000 Lap Grinder: [facility] External Provider IMG CT PROCEDURES Final Result * Partial Thromboplastin Time, Activated (APTT) (07/28/2025 5:01 PM EDT) Partial Thromboplastin Time 31.4 26.7 - 34.1 SEC [facility] 07/28/2025 5:01 PM EDT 07/28/2025 5:05 PM EDT Generic External Data Provider LAB BLOOD ORDERAB LES Final Result Performing Organization Address [facility] Co de Phone Number [facility] [address] [place] [phone] * Lipase (07/28/2025 5:01 PM EDT) Lipase 31 8 - 78 U/L [facility] 07/28/2025 5:01 PM EDT 07/28/2025 5:05 PM EDT Generic External Data Provider LAB BLOOD ORDERAB LES Final Result Performing Organization Address [facility] Co de Phone Number [facility] [address] [place] [phone] * POCT HGB A1C (01/10/2025 11:02 [...] LDL-C. Jack SS et al. JITENDRA. 2013;310(19): 8881-7935 (http://education.Infusionsoft.com/faq/PHL548) Non-HDL Cholesterol 88 <130 mg/dL (calc) CONVERTED [...] Relevant to Health Maintenance Insurance [facility] USP OPTIONS (HMO D-SNP) [place] [phone] Care Teams Timber Cutter Relationship Specialty Start Date End Date Name, MD Nitin [address] [place] [address] PCP - General Family Medicine 08/26/17 [facility] 09/01/24
--- OUTSIDE RECORDS SUMMARY | 2025-10-24 02:19 | XMS_ITS | Encounter Summary ---
Author Organization [employer] Address 75 [facility] 7[address] [place] [address] Care Team Providers Care Furnace Roaster Name Role Phone Name, Nitin PIKE Primary Care Provider [phone] Reason for Visit * Reason Comments Med Refill Encounter Details Date Type Department Care Team (Late st Contact Info) Description 01/09/2025 Refill [facility] [address] [place], [place] [phone] Name, MD Nitin [address] [place] [address] Hypertension, unspecified type Social History Tobacco Use [...] EST Office Visit [facility] [address] [place] [address] NameNitin MD [address] [place] [address] documented as of this encounter Visit Diagnoses Diagnosis Hypertension, unspecified type documented in this encounter Additional Health Concerns Assessment Noted Time PHQ-9 Depression Total Score: 6 02/13/20 9:14 AM EDT documented as of this encounter Care Teams Furnace Roaster Relationship Specialty Start Date End Date NameNitin MD [address] [place] [address] PCP - General Family Medicine 08/26/17 [facility] 09/01/24 documented as of this encounter
--- OUTSIDE RECORDS SUMMARY | 2025-10-24 02:19 | XMS_ITS | Encounter Summary ---
Author Organization [employer] Address 75 [facility] [address] [place] [address] Care Team Providers Care Real Estate Legal Assistant Name Role Phone Name, Nitin PIKE Primary Care Provider [phone] Reason for Visit * Reason Onset Date Comments Results 08/29/2023 Encounter Details Date Type Department Care Team ([facility] st Contact Info) Description 08/29/2023 Telephone [facility] 230 [place], [place] [phone] Name, MD Nitin 230 [place] [address] Results Social History Tobacco Use Types Packs/Day [...] 09/01/2023 11:51 AM EDT Pt evaluated in [facility] today and is scheduled with pcp 09/03/23. * Telephone Encounter - Janette Huitron - 08/29/2023 4:06 PM EDT Tc from pt requesting a call in regards to urine results. Please contact pt at [phone] (Vietnamese) documented in this encounter Plan of Treatment Upcoming Encounters Date Type Department Care Team (Late st Contact Info) Description 11/07/2025 10:00 AM EST Office Visit [facility] [address] [place] [address] Name, MD Nitin [address] [place] [address] documented as of this encounter Visit Diagnoses Not on filedocumented in this encounter Additional Health Concerns Assessment Noted Time PHQ-9 Depression Total Score: 12 023 9:37 AM EDT documented as of this encounter Care Teams Real Estate Legal Assistant Relationship Specialty Start Date End Date Name, MD Nitin [address] [place] [address] PCP - General Family Medicine 08/26/17 [facility] 09/01/24 documented as of this encounter
--- OUTSIDE RECORDS SUMMARY | 2025-10-24 02:19 | XMS_ITS | Clinical Summary ---
Author Organization [facility] Address [address] [place] [address] Phone Care Team Providers Care It Quality Assurance Analyst Name Role Phone Physician, No Pcp Primary [...] CHEMISTRY METHOD 09/22/2024 3:15 AM EST [facility] Potassium 4.6 [...] LAB CHEMISTRY METHOD 09/22/2024 3:15 AM EST [facility] Total Protein 8.0 6.0 - 8.0 g/dL LAB CHEMISTRY METHOD 09/22/2024 3:15 AM EST [facility] Albumin 4.2 3.2 - 5.0 g/dL LAB CHEMISTRY METHOD 09/22/2024 3:15 AM EST [facility] Total Bilirubin 0.4 0.0 - 1.4 mg/dL LAB CHEMISTRY METHOD 09/22/2024 3:15 AM EST [facility] Blood Venous blood specimen / Unknown Venipuncture / Unknown 09/22/2024 2:28 AM EST 09/22/2024 2:31 AM EST us Paul RUIZ LAB BLOOD ORDERABLES Final Resul t [facility] [address] [place] [address], from Last 3 Months or Most Recently Relevant to Health Maintenance Insurance [facility] MEDICARE Member Subscriber Plan / Payer (Ef fective 2021-Present) Name:Noreen Wing Relation to Subscriber:Self Name:Noreen Wing Payer ID:[id number] Group ID:[id number] Type:Not on file Address: [address] [place] [phone] Care Teams It Quality Assurance Analyst Relationship Specialty Start Date End Date Physician, No Pcp PCP - General 09/22/24
--- OUTSIDE RECORDS SUMMARY | 2025-10-24 02:19 | XMS_ITS | Encounter Summary ---
Author Organization [employer] Address [address] [facility] 7[address] [place] [address] Care Team Providers Care Warehouse Assembly Worker Name Role Phone Name, Nitin PIKE Primary Care Provider [phone] Reason for Visit * Reason Onset Date Comments Referral 08/24/2025 Encounter Details Date Type Department Care Team ([facility] st Contact Info) Description 08/24/2025 Telephone [facility] [address] [place], [place] [phone] Name, MD Nitin [address] [place] [address] Referral Social History Tobacco Use Types Packs/Day [...] DATE: 09/21/25 TIME: 10 am Facility Name: [facility] PT Type of Specialist: Physical therapy Facility Phone # : [phone] Fax #: [phone] documented in this encounter Plan of Treatment Upcoming Encounters Date Type Department Care Team (Late st Contact Info) Description 11/07/2025 10:00 AM EST Office Visit [facility] [address] [place], [place] [phone] Name, MD Nitin [address] [place] [address] documented as of this encounter Visit Diagnoses Not on filedocumented in this encounter Additional Health Concerns Assessment Noted Time PHQ-9 Depression Total Score: 3 04/29/20 9:41 AM EDT documented as of this encounter Care Teams Warehouse Assembly Worker Relationship Specialty Start Date End Date Name, MD Nitin [address] [place] [address] PCP - General Family Medicine 08/26/17 [facility] 09/01/24 documented as of this encounter
--- OUTSIDE RECORDS SUMMARY | 2025-10-24 02:19 | XMS_ITS | Encounter Summary ---
Author Organization [employer] Address 75 [facility] 7[address] [place] [address] Care Team Providers Care Radiation Control Specialist Name Role Phone Name, Nitin PIKE Primary Care Provider [phone] Reason for Visit * Reason Onset Date Comments Hospital Follow-up 10/20/2024 Encounter Details Date Type Department Care Team ([facility] Contact Info) Description 10/20/2024 Telephone [facility] [address] [place], [place] [phone] Name, MD Nitin [address] [place] [address] Hospital Follow-up Social History Tobacco Use Types [...] from pt requesting a HDF appt. Hospital: [facility] Date of admission: 10/17 Discharge date: 10/19 Diagnosed: High Blood Pressure and Fever Contact pt at [phone] *Send message to [facility] Coordinators documented in this encounter Plan of Treatment Upcoming Encounters Date Type Department Care Team (Late st Contact Info) Description 11/07/2025 10:00 AM EST Office Visit [facility] [address] [place] [address] Name, MD Nitin [address] [place] [address] documented as of this encounter Visit Diagnoses Not on filedocumented in this encounter Additional Health Concerns Assessment Noted Time PHQ-9 Depression Total Score: 6 02/13/20 24 9:14 AM EDT documented as of this encounter Care Teams Radiation Control Specialist Relationship Specialty Start Date End Date Name, MD Nitin [address] [place] [address] PCP - General Family Medicine 08/26/17 [facility] 09/01/24 documented as of this encounter
--- OUTSIDE RECORDS SUMMARY | 2025-10-24 02:19 | XMS_ITS | Encounter Summary ---
Author Organization [employer] Address 75 [facility] 7[address] [place] [address] Care Team Providers Care Potash Flaker Name Role Phone Name, Nitin PIKE Primary Care Provider [phone] Reason for Visit * Reason Onset Date Comments ER Follow-up 05/31/2024 Encounter Details Date Type Department Care Team ([facility] Contact Info) Description 05/31/[address] [facility] MEDICINE [address] [place], [place] [phone] Name, MD Nitin [address] [place] [address] ER Follow-up Social History Tobacco Use Types [...] PM EDT T/C to Pat ([facility]) [phone] for below message, no answer. LVM to call back on [phone]. * Telephone Encounter - Melany Santos RN - 05/31/2024 1:32 PM EDT DAVID T/C to pt. Through Passlogix id - [id number] for below message, pt. Had recent fall and ED visit at [facility]. RN will request GRACE piedra from [facility]. Pt. Is doing good, states I [...] visit on : Date: 05/26 Hospital: [facility] Seen for: Fall, Back Pain Pat [...] [facility] [address] [place] [address] Name, MD Nitin [address] [place] [address] documented as of this encounter Visit Diagnoses Not on filedocumented in this encounter Additional Health Concerns Assessment Noted Time PHQ-9 Depression Total Score: 6 02/13/20 24 9:14 AM EDT documented as of this encounter Care Teams Potash Flaker Relationship Specialty Start Date End Date Name, MD Nitin [address] [place] [address] PCP - General Family Medicine 08/26/17 [facility] 09/01/24 documented as of this encounter
--- OUTSIDE RECORDS SUMMARY | 2025-10-24 02:19 | XMS_ITS | Encounter Summary ---
Author Organization [employer] Address 75 [facility] 7[address] [place] [address] Care Team Providers Care Classifier Tender Name Role Phone Name, Nitin PIKE Primary Care Provider [phone] Reason for Visit * Reason Comments Med Refill Encounter Details Date Type Department Care Team (Late st Contact Info) Description 08/16/2024 Refill [facility] & PEDS [address] [place], [place] [phone] Name, MD Nitin [address] [place] [address] Heartburn Social History Tobacco Use Types Packs/Day [...] 10:00 AM EST Office Visit [facility] MEDICINE [address] [place] [address] NameNitin MD [address] [place] [address] documented as of this encounter Visit Diagnoses Diagnosis Heartburn documented in this encounter Additional Health Concerns Assessment Noted Time PHQ-9 Depression Total Score: 6 02/13/20 24 9:14 AM EDT documented as of this encounter Care Teams Classifier Tender Relationship Specialty Start Date End Date NameNitin MD [address] [place] [address] PCP - General Family Medicine 08/26/17 [facility] 09/01/24 documented as of this encounter
--- OUTSIDE RECORDS SUMMARY | 2025-10-24 02:19 | XMS_ITS | Encounter Summary ---
Author Organization [employer] Address [address] [facility] 7[address] [place] [address] Care Team Providers Care It Senior Software Engineer Java Name Role Phone Name, Nitin PIKE Primary Care Provider [phone] Reason for Visit * Reason Comments Med Refill Encounter Details Date Type Department Care Team ([facility] st Contact Info) Description 06/28/2024 Refill [facility] [address] [place], [place] [phone] Mel Anguiano FNP 230 [place] [address] Social History Tobacco Use Types Packs/Day Years [...] Description 11/07/2025 10:00 AM EST Office Visit [facility] [address] [place] [address] Name, MD Nitin [address] [place] [address] documented as of this encounter Visit Diagnoses Not on filedocumented in this encounter Additional Health Concerns Assessment Noted Time PHQ-9 Depression Total Score: 6 02/13/20 24 9:14 AM EDT documented as of this encounter Care Teams It Senior Software Engineer Java Relationship Specialty Start Date End Date Name, MD Nitin [address] [place] [address] PCP - General Family Medicine 08/26/17 [facility] 09/01/24 documented as of this encounter
--- OUTSIDE RECORDS SUMMARY | 2025-10-24 02:19 | XMS_ITS | Encounter Summary ---
Author Organization [employer] Address [address] [facility] 7[address] [place] [address] Care Team Providers Care Teacher Adult Education Name Role Phone Name, Nitin PIKE Primary Care Provider [phone] Reason for Visit * Reason Onset Date Comments ER Follow-up 05/04/2024 Encounter Details Date Type Department Care Team ([facility] Contact Info) Description 05/04/[address] [facility] MEDICINE [address] [place], [place] [phone] Name, MD Nitin 230 [place] [address] ER Follow-up Social History Tobacco Use Types [...] 11:01 AM EDT T/C to pt. Through CostPrize id - [id number] for below message, No answer. LVM to call back [phone] . * Telephone Encounter - Adithya Solorzano - 05/04/2024 9:35 AM EDT Noreen with [facility] calling to report ED visit on : Date: 04/28 Hospital: [facility] Seen for: UTI, Nausea, Rash. Noreen advised will be forwarding message to team nurses. Please contact pt at [phone]. documented in this encounter Plan of Treatment Upcoming Encounters Date Type Department Care Team (Late st Contact Info) Description 11/07/2025 10:00 AM EST Office Visit [facility] [address] [place] [address] Name, MD Nitin [address] [place] [address] documented as of this encounter Visit Diagnoses Not on filedocumented in this encounter Additional Health Concerns Assessment Noted Time PHQ-9 Depression Total Score: 6 02/13/20 9:14 AM EDT documented as of this encounter Care Teams Teacher Adult Education Relationship Specialty Start Date End Date Name, MD Nitin [address] [place] [address] PCP - General Family Medicine 08/26/17 [facility] 09/01/24 documented as of this encounter
--- OUTSIDE RECORDS SUMMARY | 2025-10-24 02:19 | XMS_ITS | Encounter Summary ---
Author Organization [employer] Address 75 [facility] 7[address] [place] [address] Care Team Providers Care Unit Manager Rn Name Role Phone Name, Nitin PIKE Primary Care Provider [phone] Reason for Visit * Reason Comments Med Refill Encounter Details Date Type Department Care Team ([facility] st Contact Info) Description 10/20/2025 Refill [facility] [address] [place], [place] [phone] Name, MD Nitin 230 [place], [place] [phone] Social History Tobacco Use Types Packs/Day Years [...] AM EST Office Visit [facility] [address] [place] [address] NameNitin MD 230 [place] [address] documented as of this encounter Visit Diagnoses Not on filedocumented in this encounter Additional Health Concerns Assessment Noted Time PHQ-9 Depression Total Score: 3 04/29/20 25 9:41 AM EDT documented as of this encounter Care Teams Unit Manager Rn Relationship Specialty Start Date End Date NameNitin MD [address] [place] [address] PCP - General Family Medicine 08/26/17 [facility] 09/01/24 documented as of this encounter
--- OUTSIDE RECORDS SUMMARY | 2025-10-24 02:19 | XMS_ITS | Clinical Summary ---
Author Organization [facility] Facility Address [address] [address] Care Team Providers Care Babbitter Name Role Phone Name, Nitin PIKE Primary Care Provider [phone] Allergies Active Allergy Reactions Criticality Noted Date [...] to complete this topic [place] [address] MCR ([id number]) [place] [phone] [facility] MCR ([id number]) Care Teams Babbitter Relationship Specialty Start Date End Date Name, MD Nitin [address] [place] [address] PCP - General Internal Medicine 10/15/22
--- OUTSIDE RECORDS SUMMARY | 2025-10-24 02:19 | XMS_ITS | Encounter Summary ---
Author Organization [employer] Address [address] [facility] 7[address] [place] [address] Care Team Providers Care Social Science Teacher Name Role Phone Name, Nitin PIKE Primary Care Provider [phone] Reason for Visit * Reason Onset Date Comments Order(s) 12/09/2023 Encounter Details Date Type Department Care Team ([facility] Contact Info) Description 12/09/2023 Telephone [facility] [address] [place], [place] [phone] Name, MD Nitin [address] [place], [place] [phone] Order(s) Social History Tobacco Use Types Packs/Day [...] orders. If any questions please contact Noreen [phone]. documented in this encounter Plan of Treatment Upcoming Encounters Date Type Department Care Team (Late st Contact Info) Description 11/07/2025 10:00 AM EST Office Visit [facility] MEDICINE [address] [place] [address] Name, MD Nitin [address] [place] [address] documented as of this encounter Visit Diagnoses Not on filedocumented in this encounter Additional Health Concerns Assessment Noted Time PHQ-9 Depression Total Score: 12 023 9:37 AM EDT documented as of this encounter Care Teams Social Science Teacher Relationship Specialty Start Date End Date Name, MD Nitin [address] [place] [address] PCP - General Family Medicine 08/26/17 [facility] 09/01/24 documented as of this encounter
--- OUTSIDE RECORDS SUMMARY | 2025-10-24 02:19 | XMS_ITS | Encounter Summary ---
Author Organization [employer] Address [address] [facility] [address] [place] [address] Care Team Providers Care Framework Developer Name Role Phone Name, Nitin PIKE Primary Care Provider [phone] Reason for Visit * Reason Onset Date Comments Call Back Request 03/14/2025 Encounter Details Date Type Department Care Team ([facility] st Contact Info) Description 03/14/2025 Telephone [facility] [address] [place], [place] [phone] Name, MD Nitin [address] [place] [address] Call Back Request Social History Tobacco Use [...] EST Office Visit [facility] [address] [place] [address] Name, MD Nitin [address] [place] [address] documented as of this encounter Visit Diagnoses Not on filedocumented in this encounter Additional Health Concerns Assessment Noted Time PHQ-9 Depression Total Score: 6 02/13/20 9:14 AM EDT documented as of this encounter Care Teams Framework Developer Relationship Specialty Start Date End Date Name, MD Nitin [address] [place] [address] PCP - General Family Medicine 08/26/17 [facility] 09/01/24 documented as of this encounter
--- OUTSIDE RECORDS SUMMARY | 2025-10-24 02:19 | XMS_ITS | Encounter Summary ---
Author Organization [employer] Address [address] [facility] 7[address] [place] [address] Care Team Providers Care Pump Service Supervisor Name Role Phone Name, Nitin PIKE Primary Care Provider [phone] Reason for Visit * Reason Comments Med Refill Encounter Details Date Type Department Care Team (Late st Contact Info) Description 10/19/2025 Refill [facility] & PEDS [address] [place], [place] [phone] Name, MD Nitin [address] [place] [address] Chronic constipation; Vitamin D deficiency Social History Tobacco Use [...] [facility] MEDICINE [address] [place] [address] Name, MD Nitin [address] [place] [address] documented as of this encounter Visit Diagnoses Diagnosis Chronic constipation Unspecified constipation Vitamin D deficiency documented in this encounter Additional Health Concerns Assessment Noted Time PHQ-9 Depression Total Score: 3 04/29/20 25 9:41 AM EDT documented as of this encounter Care Teams Pump Service Supervisor Relationship Specialty Start Date End Date Name, MD Nitin [address] [place] [address] PCP - General Family Medicine 08/26/17 [facility] 09/01/24 documented as of this encounter
--- OUTSIDE RECORDS SUMMARY | 2025-10-24 02:19 | XMS_ITS | Data Portability ---
Author Organization [employer], [facility] Address [address] [place] [address] Care Team Providers Care Dietary Aid Name Role Phone HIM CCA Primary Care [...] Updated DateTime 4 18 /min 74 /min 69809.9 28 g 98 % 100 [degF] 130/66 [...] ICD10 Code Diagnosis IMO Codes Diagnosis Note [id number] Epifanio Mcintyre MD [facility] - [address] [address] 01/31/2024 18:59:06 02/01/2024 21:09:19 Urethral stenosis 137455444 N35.92 This 78-year-ol d female recently had a Bunn catheter placed because she had difficulty voiding due to apparent urethral stenosis. She called today because she insists on having the catheter removed. It was removed by the pantographer with the understand ing that if she can't void, she will need to go the the ER. The patient agreed with this plan. [id number] Rohit Benton MD [facility] - [address] [address] 02/06/2024 15:33:16 02/09/2024 18:20:42 Chronic retention of urine [id number] R33.8 Has bunn catheter which was recently [...] Pinzon Member ID Guarantor Name 02/09/2024 1 [facility] - DOS ON OR AFTER 2023 - DUAL ELIGIBLE - HALFWAY OPTIONS AND ONE CARE (MEDICARE REPLACEMENT/ADV ANTAGE - HMO) Noreen Wing [id number] Noreen Wing Notes Date Note Type Note Provider Name and Address Organization Details Recorded Time 01/31/2024 text/html ROS as noted in the HPI CRC Nurse Triage Notes (Joana Dominique): Reason For Request: Bunn catheter malfunction/painful Chief Complaints: UTI/Pyelonephritis, Equipment-Related Allergies: No Known Comments: Serbian speaking member who denies any PMH, denies [...] KAYE Verified name//address Epifanio Mcintyre MD [address] [facility],[address], [place], [address], [employer] 01/31/2024 19:05:57 02/06/2024 text/html ROS as noted in the HPI HPI: Member asked for HV tomorrow after 10 AM if possible. Treated at the [facility] today, for F/u leaking, stated is [...] son Jame Wing. Member is 78 y/o Serbian speaking female who [place] [facility] with her son. Member has multiple [...] sees her BH counselor weekly and Prescriber [employer] Notrees monthly if needed or every 2-3 months, .................... .................... .................... .................... .................... .................... .................... . CRC Nurse Triage Notes (Zafar Irving): Comments: Reviewed HPI .................... .................... .................... .................... .................... .................... .................... . Workers' Compensation Claims Supervisor Note From [place]: Pt sts doesn [...] appt Friday. Pt son was used as marketing and public relations manager. Pt education on signs indicating the ER. Workers' Compensation Claims Supervisor Allergies: Clindamycin .................... .................... .................... .................... .................... .................... .................... . Disposition: Fulfilled Rohit Benton MD [address] [facility],[address], [place], [address], [employer] 02/06/2024 17:58:19 OBGyn Episode No OBEpisode recorded.
--- OUTSIDE RECORDS SUMMARY | 2025-10-24 02:19 | XMS_ITS | Encounter Summary ---
Author Organization [employer] Address [address] [facility] [address] [place] [address] Care Team Providers Care Chief Solution Architect Name Role Phone Name, Nitin PIKE Primary Care Provider [phone] Reason for Visit * Reason Onset Date Comments Durable Medical Equipment 12/09/2023 Encounter Details Date Type Department Care Team ([facility] st Contact Info) Description 12/09/2023 Telephone [facility] MEDICINE [address] [place], [place] [phone] Name, MD Nitin [address] [place], [place] [phone] Durable Medical Equipment Social History Tobacco Use [...] 12/09/2023 4:58 PM EST Call returned to [facility] at [facility] [phone] ext. [phone]. [facility] states that [facility] attempted to provide PT at home but pt refused. [facility] pt is requesting outpatient PT. [facility] pt is seeing a counselor more regularly and has agreed to VNA referral. Reports pt has had 3 falls in the past 2 months. [facility] states [facility] no longer has visiting nurses. [facility] recommends [place] or [facility] for VNA referral. [facility] also requesting DME rx for rollator walker and a straight cane. Requests that DME rx be faxed to [phone]. Advised requests will be sent to pcp. * Telephone Encounter - Adithya Solorzano - 12/09/2023 4:25 PM EST Tc from [facility] requesting DME: Rollator walker . documented in this encounter Plan of Treatment Upcoming Encounters Date Type Department Care Team (Late st Contact Info) Description 11/07/2025 10:00 AM EST Office Visit [facility] MEDICINE [address] [place] [address] Name, MD Nitin [address] [place] [address] documented as of this encounter Visit Diagnoses Not on filedocumented in this encounter Additional Health Concerns Assessment Noted Time PHQ-9 Depression Total Score: 12 023 9:37 AM EDT documented as of this encounter Care Teams Chief Solution Architect Relationship Specialty Start Date End Date Name, MD Nitin [facility] [place] [address] PCP - General Family Medicine 08/26/17 [facility] 09/01/24 documented as of this encounter
--- OUTSIDE RECORDS SUMMARY | 2025-10-24 02:19 | XMS_ITS | Encounter Summary ---
Author Organization [employer] Address [address] [facility] [address] [place] [address] Care Team Providers Care Pipe Production Worker Name Role Phone Name, Nitin PIKE Primary Care Provider Reason for Visit * Reason Comments Med Refill Encounter Details Date Type Department Care Team (Late st Contact Info) Description 04/20/2025 Refill [facility] [address] [place] [address] Zechariah Cheung MD [address] [place] [address] Allergic rhinitis, unspecified seasonality, unspecified trigger Social [...] Office Visit [facility] MED[facility] [address] [place] [address] NameNitin MD 230 [place] [address] documented as of this encounter Visit Diagnoses Diagnosis Allergic rhinitis, unspecified seasonality, unspecified trigger documented in this encounter Additional Health Concerns Assessment Noted Time PHQ-9 Depression Total Score: 6 02/13/20 9:14 AM EDT documented as of this encounter Care Teams Pipe Production Worker Relationship Specialty Start Date End Date Nitin Echevarria MD [address] [place] [address] PCP - General Family Medicine 08/26/17 [facility] 09/01/24 documented as of this encounter
--- OUTSIDE RECORDS SUMMARY | 2025-10-24 02:19 | XMS_ITS | Encounter Summary ---
Author Organization [employer] Address [address] [facility] [address] [place] [address] Care Team Providers Care Floor Runner Name Role Phone Name, Nitin PIKE Primary Care Provider [phone] Reason for Visit * Reason Onset Date Comments Med Refill 11/08/2024 Encounter Details Date Type Department Care Team ([facility] st Contact Info) Description 11/08/2024 Telephone [facility] MEDICINE [address] [place], [place] [phone] Name, MD Niitn [address] [place] [address] Med Refill Social History Tobacco Use Types [...] 5 MG tablet To be sent to: [facility] - [place], [place] - [address] [facility] documented in this encounter Plan of Treatment Upcoming Encounters Date Type Department Care Team ([facility] st Contact Info) Description 11/07/2025 10:00 AM EST Office Visit [facility] MEDICINE [address] [place] [address] Name, MD Nitin [address] [place] [address] documented as of this encounter Visit Diagnoses Not on filedocumented in this encounter Additional Health Concerns Assessment Noted Time PHQ-9 Depression Total Score: 6 02/13/20 24 9:14 AM EDT documented as of this encounter Care Teams Floor Runner Relationship Specialty Start Date End Date Name, MD Nitin [address] [place] [address] PCP - General Family Medicine 08/26/17 [facility] 09/01/24 documented as of this encounter
--- OUTSIDE RECORDS SUMMARY | 2025-10-24 02:19 | XMS_ITS | Encounter Summary ---
Author Organization [employer] Address [address] [facility] [address] [place] [address] Care Team Providers Care Flame Cutting Machine Operator Name Role Phone Name, Nitin PIKE Primary Care Provider [phone] Encounter Details Date Type Department Care Team (Late st Contact Info) Description 11/06/[address] [facility] [address] [place], [place] [phone] Lisha Kelly LPN Social History Tobacco Use [...] Office Visit [facility] MEDICINE [address] [place] [address] NameNitin MD [address] [place] [address] documented as of this encounter Visit Diagnoses Not on filedocumented in this encounter Care Teams Flame Cutting Machine Operator Relationship Specialty Start Date End Date Nitin Echevarria MD [address] [place] [address] PCP - General Family Medicine 08/26/17 [facility] 09/01/24 documented as of this encounter
--- OUTSIDE RECORDS SUMMARY | 2025-10-24 02:20 | XMS_ITS | Encounter Summary ---
Author Organization [employer] Address [address] [facility] [address] [place] [address] Care Team Providers Care Rig Hand Name Role Phone Name, Nitin PIKE Primary Care Provider [phone] Reason for Visit * Reason Comments Med Refill Encounter Details Date Type Department Care Team (Late Contact Info) Description 03/02/2023 Refill [facility] [address] [place] [address] Karely Patiño MD [address] [place] [address] [phone] Social History Tobacco Use Types Packs/Day Years [...] AM EST Office Visit [facility] [address] [place] [address] Name, MD Nitin [address] [place] [address] documented as of this encounter Visit Diagnoses Not on filedocumented in this encounter Care Teams Rig Hand Relationship Specialty Start Date End Date Name, MD Nitin [address] [place] [address] PCP - General Family Medicine 08/26/17 [facility] 09/01/24 documented as of this encounter
--- OUTSIDE RECORDS SUMMARY | 2025-10-24 02:20 | XMS_ITS | Encounter Summary ---
Author Organization [employer] Address [address] [facility] [address] [place] [address] Care Team Providers Care Hunter Guide Name Role Phone Name, Nitin PIKE Primary Care Provider [phone] Encounter Details Date Type Department Care Team ([facility] Contact Info) Description 01/06/2023 Orders Only [facility] [address] [place], [place] [phone] Lisha Kelly LPN Social History Tobacco Use [...] [facility] MEDICINE [address] [place], [place] [phone] NameNitin MD [address] [place] [address] documented as of this encounter Visit Diagnoses Not on filedocumented in this encounter Care Teams Hunter Guide Relationship Specialty Start Date End Date NameNitin MD [address] [place] [address] PCP - General Family Medicine 08/26/17 [facility] 09/01/24 documented as of this encounter
--- OUTSIDE RECORDS SUMMARY | 2025-10-24 02:20 | XMS_ITS | Encounter Summary ---
Author Organization [employer] Address [address] [facility] [address] [place] [address] Care Team Providers Care Side Puller Name Role Phone Name, Nitin PIKE Primary Care Provider [phone] Reason for Visit * Reason Onset Date Comments Verbal Orders 12/15/2023 Encounter Details Date Type Department Care Team ([facility] st Contact Info) Description 12/15/2023 Telephone [facility] [address] [place], [place] [phone] Name, MD Nitin [address] [place] [address] Verbal Orders Social History Tobacco Use Types [...] 12:03 PM EST Tc from [facility] requesting verbal order to see pt 2 times a week for 4 weeks for Occupational Therapy, please contact [facility] at [phone] documented in this encounter Plan of Treatment Upcoming Encounters Date Type Department Care Team (Late st Contact Info) Description 11/07/2025 10:00 AM EST Office Visit [facility] [address] [place] [address] Name, MD Nitin [address] [place] [address] documented as of this encounter Visit Diagnoses Not on filedocumented in this encounter Additional Health Concerns Assessment Noted Time PHQ-9 Depression Total Score: 12 023 9:37 AM EDT documented as of this encounter Care Teams Side Puller Relationship Specialty Start Date End Date Name, MD Nitin [address] [place] [address] PCP - General Family Medicine 08/26/17 [facility] 09/01/24 documented as of this encounter
--- OUTSIDE RECORDS SUMMARY | 2025-10-24 02:20 | XMS_ITS | Encounter Summary ---
Author Organization [employer] Address [address] [facility] [address] [place] [address] Care Team Providers Care Telephone Ad Taker Name Role Phone Name, Nitin PIKE Primary Care Provider [phone] Reason for Visit * Reason Onset Date Comments Verbal Orders 01/02/2024 Encounter Details Date Type Department Care Team ([facility] st Contact Info) Description 01/02/2024 Telephone [facility] MEDICINE [address] [place], [place] [phone] Name, MD Nitin [address] [place] [address] Verbal Orders Social History Tobacco Use Types Packs/Day Years Used Date Smoking Tobacco: Never Passive Smoke Exposure: Never Smokeless Tobacco: Never Alcohol Use Standard Drinks/Week Comments Never 0 (1 standard drink = 0.6 oz pur e alcohol) Depression Answer Date Recorded Patient Health Questionnaire-9 Score 12 05/29/2023 Housing Stability Answer Date Recorded What is your housing situation today? I have [employer] 08/25/[address] you [...] No answer. LVM to call back on [phone]. * Telephone Encounter - Melany Santos RN - 01/06/2024 10:25 AM EST Please review and advise for below request. * Telephone Encounter - Deana Bazzi - 01/02/2024 3:44 PM EST Tc from [facility] requesting verbal orders for discharge pt from Occupational Therapy, due to pt refuses services, please contact [facility] at [phone]. documented in this encounter Plan of Treatment Upcoming Encounters Date Type Department Care Team (Late st Contact Info) Description 11/07/2025 10:00 AM EST Office Visit [facility] MEDICINE [address] [place] [address] Name, MD Nitin [address] [place] [address] documented as of this encounter Visit Diagnoses Not on filedocumented in this encounter Additional Health Concerns Assessment Noted Time PHQ-9 Depression Total Score: 12 023 9:37 AM EDT documented as of this encounter Care Teams Telephone Ad Taker Relationship Specialty Start Date End Date Name, MD Nitin [address] [place] [address] PCP - General Family Medicine 08/26/17 [facility] 09/01/24 documented as of this encounter
--- OUTSIDE RECORDS SUMMARY | 2025-10-24 02:20 | XMS_ITS | Encounter Summary ---
Author Organization [employer] Address [address] [facility] [address] [place] [address] Care Team Providers Care Glove Sewer Name Role Phone Name, Nitin PIKE Primary Care Provider [phone] Reason for Visit * Reason Onset Date Comments FYI 01/21/2024 ER Follow-up 01/21/2024 Encounter Details Date Type Department Care Team ([facility] st Contact Info) Description 01/21/2024 Telephone [facility] MEDICINE [address] [place], [place] [phone] Name, MD Nitin [address] [place] [address] FYI; ER Follow-up Social History Tobacco Use [...] - 01/21/2024 1:54 PM EDT Message from [facility] ED noted. [facility] note sent to medical records. PCP does not rx Trazodone. Pt to f/u with psych prescriber. Pt is scheduled for f/u with pcp 02/13/24. * Telephone Encounter - Janette Huitron - 01/21/2024 9:45 AM EDT Tc from [facility] with [facility] ED calling in regards to pt. States pt was seen today for anxiety and is requesting trazodone. Will discharge pt with no medication change. Would also like to advise provider, pt was seen at [facility] on 01/17 for anxiety/insomnia as well documented in this encounter Plan of Treatment Upcoming Encounters Date Type Department Care Team (Late st Contact Info) Description 11/07/2025 10:00 AM EST Office Visit [facility] MEDICINE [address] [place] [address] Name, MD Nitin [address] [place] [address] documented as of this encounter Visit Diagnoses Not on filedocumented in this encounter Additional Health Concerns Assessment Noted Time PHQ-9 Depression Total Score: 12 023 9:37 AM EDT documented as of this encounter Care Teams Glove Sewer Relationship Specialty Start Date End Date Name, MD Nitin [address] [place] [address] PCP - General Family Medicine 08/26/17 [facility] 09/01/24 documented as of this encounter
--- OUTSIDE RECORDS SUMMARY | 2025-10-24 02:20 | XMS_ITS | Encounter Summary ---
Author Organization [employer] Address [address] [facility] [address] [place] [address] Care Team Providers Care Trouble Clerk Name Role Phone Name, Nitin PIKE Primary Care Provider [phone] Encounter Details Date Type Department Care Team ([facility] Contact Info) Description 12/17/2022 Orders Only [facility] [address] [place], [place] [phone] Lisha Kelly LPN Social History Tobacco Use [...] EST Office Visit [facility] MEDICINE [address] [place] [address] Nitin Echevarria MD [address] [place] [address] documented as of this encounter Visit Diagnoses Not on filedocumented in this encounter Care Teams Trouble Clerk Relationship Specialty Start Date End Date NameNitin MD [address] [place] [address] PCP - General Family Medicine 08/26/17 [facility] 09/01/24 documented as of this encounter
--- OUTSIDE RECORDS SUMMARY | 2025-10-24 02:20 | XMS_ITS | Encounter Summary ---
Author Organization [employer] Address [address] [facility] [address] [place] [address] Care Team Providers Care Sander Setter Name Role Phone Name, Nitin PIKE Primary Care Provider [phone] Reason for Visit * Reason Onset Date Comments triage 12/18/2022 Encounter Details Date Type Department Care Team ([facility] st Contact Info) Description 12/18/2022 Telephone [facility] MEDICINE [address] [place], [place] [phone] Name, MD Nitin [address] [place] [address] triage Social History Tobacco Use Types Packs/Day [...] 12/18/2022 2:35 PM EST Called pt. Via [employer] die cut operator [id number] Eduardo. Pt. States that she has a [...] phone. Please reach out to pt. With Ecuadorean speaking another time to see what her [...] AM EST Office Visit [facility] MEDICINE [address] [place] [address] Name, MD Nitin [address] [place] [address] documented as of this encounter Visit Diagnoses Not on filedocumented in this encounter Care Teams Sander Setter Relationship Specialty Start Date End Date Name, MD Nitin [address] [place] [address] PCP - General Family Medicine 08/26/17 [facility] 09/01/24 documented as of this encounter
--- NOTE | 2025-10-24 02:53 | PC.NURSE ---
Pt reports urinary frequency. Urine sample to be collected and sent.
--- NOTE | 2025-10-24 03:00 | ED.GENADULT ---
HPI - General Adult General Chief complaint: General Medical Stated complaint: dizziness Time Seen by Provider: 10/24/25 02:30 Source: patient Limitations: language barrier History of Present Illness ED Provider: Jeanne Shen PA-C HPI narrative: 80-year-old female with a history of vertigo, HTN, anxiety, hyponatremia, SVT, benzo misuse , who is well known to our emergency department, being a high utilizer of resources, presents with dizziness. Patient states she has a history of vertigo and ran out of her medication. She is requesting medication refill due to nausea. Related Data Home Medications ?Medication ?Instructions ?Recorded ?Confirmed omeprazole 20 mg tablet,delayed 20 mg PO DAILY@0630 08/09/20 08/22/25 release aspirin 81 mg tablet,delayed 81 mg PO QAM 01/28/24 08/22/25 release bisacodyl 5 mg tablet,delayed 5 mg PO DAILY PRN constipation 01/28/24 08/22/25 release ferrous sulfate 325 mg (65 mg 325 mg PO DAILY 01/28/24 08/22/25 iron) tablet (FeroSul) melatonin 10 mg tablet,extended 10 mg PO BEDTIME PRN Insomnia 01/28/24 08/22/25 release multivitamin 1 tab PO QAM 01/28/24 08/22/25 rosuvastatin 20 mg tablet 20 mg PO BEDTIME 01/28/24 08/22/25 trazodone 50 mg tablet 50 mg PO BEDTIME 01/28/24 08/22/25 amlodipine 10 mg tablet 10 mg PO DAILY 02/09/24 08/22/25 acetaminophen 500 mg tablet 500 mg PO Q8H PRN pain 08/09/24 08/22/25 cholecalciferol (vitamin D3) 25 25 mcg PO DAILY 08/20/24 08/22/25 mcg (1,000 unit) tablet sertraline 100 mg tablet 100 mg PO DAILY 03/16/25 08/22/25 apixaban 5 mg tablet 5 mg PO BID 08/22/25 08/22/25 clonazepam 0.5 mg tablet 0.5 mg PO TID 08/22/25 08/22/25 fluticasone propionate 50 2 spray intranasal DAILY PRN 08/22/25 08/22/25 mcg/actuation nasal Allergic Symptoms spray,suspension (Flonase Allergy Relief) hydroxyzine HCl 25 mg tablet 10 mg PO DAILY PRN anxiety 08/22/25 08/22/25 ketotifen fumarate 0.025 % (0.035 1 drp ophthalmic (eye) BID PRN 08/22/25 08/22/25 %) eye drops allergies mirtazapine 45 mg tablet 45 mg PO BEDTIME 08/22/25 08/22/25 valsartan 160 mg tablet 160 mg PO QPM 08/22/25 08/22/25 Previous Rx's ?Medication ?Instructions ?Recorded metoprolol succinate 50 mg 50 mg PO DAILY #90 tabs 09/28/20 tablet,extended release 24 hr docusate sodium 100 mg capsule 200 mg (2 x 100 mg) PO BID #20 caps 02/24/25 (Colace) ibuprofen 200 mg tablet 200 mg PO Q6H PRN pain #20 tabs 07/24/25 meclizine 12.5 mg tablet 12.5 mg PO TID PRN dizziness or 07/26/25 vertigo #30 tabs meclizine 25 mg tablet 25 mg PO BID PRN dizziness #14 tabs 09/22/25 meclizine 25 mg tablet 25 mg PO BID PRN dizziness #14 tabs 10/10/25 Allergies Allergy/AdvReac Type Severity Reaction Status Date / Time penicillin G (Penicillin G) Allergy Severe ITCHY/RASH Verified 10/24/25 01:59 Sulfa (Sulfonamide Allergy Severe ITCHY,RASH, Verified 10/24/25 01:59 Antibiotics) (Sulfa rash (Sulfonamides)) trimethoprim (From Bactrim) Allergy Severe HIVES Verified 10/24/25 01:59 Penicillins Allergy Intermediate Hives Verified 10/24/25 01:59 sulfamethoxazole (From Allergy Mild Hives Verified 10/24/25 01:59 Bactrim) Review of Systems Review of Systems: Yes all other systems are reviewed and are negative Constitutional: Constitutional: Denies fatigue, Denies fever(s) and Denies headache(s) ENT: Reports vertigo and Denies headache(s) Cardiovascular: Cardiovascular: Denies chest pain, Denies palpitations and Denies dyspnea Respiratory: Respiratory: Denies dyspnea Gastrointestinal: Gastrointestinal: Denies abdominal pain, Reports nausea and Denies vomiting Neurologic: Reports vertigo and Denies headache(s) Endocrine: Endocrine: Denies fatigue and Denies palpitations PMFSH Past Medical History Attestation statement: The following information was validated with the patient. 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 or 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 (mechanical commissioning engineer) Alcohol intake: never Patient Tobacco Use Status: Never used Tobacco Smoked in Last 30 Days: No Use of substances other than those prescribed or required for medical reasons: No Advance Directives: Yes Advance Directives on File: Yes Advance Directives Date on File: 01/28/24 Do you have a plan to hurt others: No Plan service: No Physical Exam ED Vital Signs: Vital Signs - 24 hr 10/24/25 01:57 Temperature 97.4 F Pulse Rate 113 H Respiratory Rate 16 Blood Pressure 124/71 Pulse Oximetry 95 Oxygen Delivery Method Room Air BMI result Body Mass Index 25.0 Const Other: Alert Orientation/consciousness: patient oriented x3 Eyes Other: No nystagmus on exam Resp Effort & Inspection: normal respiratory effort Cardio Other: Normal peripheral perfusion Skin Other: Warm dry no rash Neuro General: patient oriented x3, gait normal, no focal motor deficits and CN's II-XI intact bilaterally Psych Other: Cooperative Medications Administered Discontinued Medications Generic Name Dose Route Start Last Admin Trade Name Freq PRN Reason Stop Dose Admin Meclizine HCl 25 mg 10/24/25 03:01 10/24/25 03:07 Meclizine Hcl 25 Mg Tablet PO 10/24/25 03:02 25 mg ONCE ONE Administration Medical Decision Making Medical Decision Making MDM Narrative: 80-year-old female with a history of vertigo, HTN, anxiety, hyponatremia, SVT, benzo misuse , who is well known to our emergency department, being a high utilizer of resources, presents with dizziness. Patient states she has a history of vertigo and ran out of her medication. She is requesting medication refill due to nausea. Problem: Anxiety History: Per patient I have considered the following differential diagnoses:vertigo, malingering, secondary gain, anxiety, anemia, viral syndrome, electrolyte abnormality, dehydration Plan: Patient has no additional associated symptoms, her exam was benign, she is not ataxic, she also has no nystagmus. I relayed to her that I will give her a dose of meclizine here, that we no longer we will be refilling her prescriptions, that she should have medication at home, that she should not be taking this medication every day. I reviewed her medication history, she had a prescription filled the beginning of October for meclizine 25 milligram. I stated that she needs to follow up with your primary care provider for additional medication. No indication for labs or imaging [facility] Noreen Wing 41 Patient presentation: Noreen is Thai speaking and utilizes our diplomatic interpreter/translator services. Noreen presents frequently to the ED for various complaints including elevated blood pressure readings, anxiety, falls, hyponatremia, medication requests such as Ativan and narcotics. There have been concerns regarding medication safety and diversion of medications. Noreen has been assessed by psychiatry in the past and has been deemed to have poor insight and judgment. Noreen will frequently call ahead throughout the day to talk to our staff and unit secretaries. Noreen is frequently brought in by EMS. She has been referred to programs in past but family declines and continues to have Noreen live at home. PMH: HTN, hyperlipidemia, hyponatremia, benzodiazepine use disorder, SVT, CKD, pulmonary embolus but no longer on DOAC, cognitive impairment, GERD, hx of urinary retention in setting of medications. Prior admissions: Her most recent admission was in August of 2024 for hyponatremia ? her psychiatric medications were switched and she was placed on 1.2L of fluid restriction a day. ED interventions: Reassurance is the mainstay of treatment. If Noreen asks for benzodiazepines or narcotics as a ?one time? dose in the ED we are not to give it. She has not presented in withdrawal, she will frequently state that she ran out of her medications or her pharmacy has not filled it. She will not receive any benzodiazepine or narcotic prescriptions from our department. She has a history of recurrent falls. Her pain can be managed with Tylenol. If Noreen presents with a medical issue or concern please assess and work up accordingly. Please run her INSTALL AND REPAIR TECHNICIAN as well, we are not the only facility she utilizes. Be mindful to check her sodium if she has not had any recent labs. Follow up: ? Noreen has a primary care doctor, a psychiatric prescriber who prescribes her benzodiazepines, urologist, and marina sales and service supervisor for her hyponatremia. Please refer her to outpatient. ?Her daughter Jeanne Meadows is her HCP ? [phone] please contact her with any concerns. Discharge Plan Discharge Clinical Impression: Dizziness Patient Disposition: Home, Self-Care Instructions: Dizziness (ED) Additional Instructions: If you require additional medication for your vertigo, you need to contact your primary care provider. You were given a 1 time dose of meclizine here in the emergency room. Prescriptions: No Action metoprolol succinate 50 mg tablet extended release 24 hr 50 mg PO DAILY Qty: 90 2RF omeprazole 20 mg Tablet,Delayed Release (Dr/Ec) 20 mg PO DAILY@0630 meclizine 12.5 mg tablet 12.5 mg PO TID PRN (Reason: dizziness or vertigo) Qty: 30 0RF meclizine 25 mg tablet 25 mg PO BID PRN (Reason: dizziness) Qty: 14 0RF trazodone 50 mg tablet 50 mg PO BEDTIME ferrous sulfate [FeroSul] 325 mg (65 mg iron) tablet 325 mg PO DAILY bisacodyl 5 mg tablet,delayed release (DR/EC) 5 mg PO DAILY PRN (Reason: constipation) rosuvastatin 20 mg tablet 20 mg PO BEDTIME aspirin 81 mg tablet,delayed release (DR/EC) 81 mg PO QAM multivitamin Tablet 1 tab PO QAM melatonin 10 mg tablet extended release 10 mg PO BEDTIME PRN (Reason: Insomnia) cholecalciferol (vitamin D3) 25 mcg (1,000 unit) tablet 25 mcg PO DAILY acetaminophen 500 mg tablet 500 mg PO Q8H PRN (Reason: pain) docusate sodium [Colace] 100 mg capsule 200 mg PO BID Qty: 20 0RF ibuprofen 200 mg tablet 200 mg PO Q6H PRN (Reason: pain) Qty: 20 0RF ketotifen fumarate 0.025 % (0.035 %) drops 1 drp ophthalmic (eye) BID PRN (Reason: allergies) mirtazapine 45 mg tablet 45 mg PO BEDTIME clonazepam 0.5 mg tablet 0.5 mg PO TID hydroxyzine HCl 25 mg tablet 10 mg PO DAILY PRN (Reason: anxiety) fluticasone propionate [Flonase Allergy Relief] 50 mcg/actuation spray,suspension 2 spray intranasal DAILY PRN (Reason: Allergic Symptoms) Rx Instructions: administer into each nostril apixaban 5 mg tablet 5 mg PO BID valsartan 160 mg tablet 160 mg PO QPM meclizine 25 mg tablet 25 mg PO BID PRN (Reason: dizziness) Qty: 14 0RF sertraline 100 mg tablet 100 mg PO DAILY amlodipine 10 mg tablet 10 mg PO DAILY Referrals: [facility] [Primary Care Provider, Medical] Referral Note: Contact your primary care provider for follow up appointment Print Language: Thai
[2025-10-24 03:41] VITALS: BP 122/69; PULSE 98; RESP 16; TEMP 36.6; O2SAT 96
== END 2025-10-24 03:41 | disposition home or self-care (01) ==
PROVIDERS: Emergency Provider Emergency Medicine
DX: R42 Dizziness and giddiness (principal); I10 Essential (primary) hypertension; F41.9 Anxiety disorder, unspecified
CPT/HCPCS: 99283; 99284

== ENCOUNTER 2025-10-31 20:45 | Emergency (ER) | payer OTHER, SELFPAY ==
[2025-10-31 20:57] VITALS: BP 183/85; PULSE 128; O2SAT 98
[2025-10-31 21:11] VITALS: BP 157/74; PULSE 88; RESP 18; TEMP 36.6; O2SAT 98; BMI 27.4
--- NOTE | 2025-11-01 00:43 | ED.DIZZY ---
HPI - Dizziness General Chief Complaint: Dizziness Stated Complaint: vertigo,anxiety Time Seen by Provider: 11/01/25 00:37 Source: patient and EMS Mode of arrival: EMS Limitations: no limitations History of Present Illness ED Provider: Dr. Marta Briscoe HPI Narrative: Patient comes to the emergency room complaining of anxiety. Patient states that earlier today she had an episode of vertigo and fell landing on her side. Patient states that she did not hit her head or lost consciousness, does not have any headache or neck pain. At this time, patient states that she no longer has any vertigo or pain from the fall. Patient requesting a tablet of hydroxyzine to help her with the anxiety. Patient states that now other than that she feels well Related Data Home Medications ?Medication ?Instructions ?Recorded ?Confirmed omeprazole 20 mg tablet,delayed 20 mg PO DAILY@0630 08/09/20 08/22/25 release aspirin 81 mg tablet,delayed 81 mg PO QAM 01/28/24 08/22/25 release bisacodyl 5 mg tablet,delayed 5 mg PO DAILY PRN constipation 01/28/24 08/22/25 release ferrous sulfate 325 mg (65 mg 325 mg PO DAILY 01/28/24 08/22/25 iron) tablet (FeroSul) melatonin 10 mg tablet,extended 10 mg PO BEDTIME PRN Insomnia 01/28/24 08/22/25 release multivitamin 1 tab PO QAM 01/28/24 08/22/25 rosuvastatin 20 mg tablet 20 mg PO BEDTIME 01/28/24 08/22/25 trazodone 50 mg tablet 50 mg PO BEDTIME 01/28/24 08/22/25 amlodipine 10 mg tablet 10 mg PO DAILY 02/09/24 08/22/25 acetaminophen 500 mg tablet 500 mg PO Q8H PRN pain 08/09/24 08/22/25 cholecalciferol (vitamin D3) 25 25 mcg PO DAILY 08/20/24 08/22/25 mcg (1,000 unit) tablet sertraline 100 mg tablet 100 mg PO DAILY 03/16/25 08/22/25 apixaban 5 mg tablet 5 mg PO BID 08/22/25 08/22/25 clonazepam 0.5 mg tablet 0.5 mg PO TID 08/22/25 08/22/25 fluticasone propionate 50 2 spray intranasal DAILY PRN 08/22/25 08/22/25 mcg/actuation nasal Allergic Symptoms spray,suspension (Flonase Allergy Relief) hydroxyzine HCl 25 mg tablet 10 mg PO DAILY PRN anxiety 08/22/25 08/22/25 ketotifen fumarate 0.025 % (0.035 1 drp ophthalmic (eye) BID PRN 08/22/25 08/22/25 %) eye drops allergies mirtazapine 45 mg tablet 45 mg PO BEDTIME 08/22/25 08/22/25 valsartan 160 mg tablet 160 mg PO QPM 08/22/25 08/22/25 Previous Rx's ?Medication ?Instructions ?Recorded metoprolol succinate 50 mg 50 mg PO DAILY #90 tabs 09/28/20 tablet,extended release 24 hr docusate sodium 100 mg capsule 200 mg (2 x 100 mg) PO BID #20 caps 02/24/25 (Colace) ibuprofen 200 mg tablet 200 mg PO Q6H PRN pain #20 tabs 07/24/25 meclizine 12.5 mg tablet 12.5 mg PO TID PRN dizziness or 07/26/25 vertigo #30 tabs meclizine 25 mg tablet 25 mg PO BID PRN dizziness #14 tabs 09/22/25 meclizine 25 mg tablet 25 mg PO BID PRN dizziness #14 tabs 10/10/25 meclizine 25 mg tablet 25 mg PO BID PRN dizziness #14 tabs 11/01/25 Allergies Allergy/AdvReac Type Severity Reaction Status Date / Time penicillin G (Penicillin G) Allergy Severe ITCHY/RASH Verified 10/31/25 21:12 Sulfa (Sulfonamide Allergy Severe ITCHY,RASH, Verified 10/31/25 21:12 Antibiotics) (Sulfa rash (Sulfonamides)) trimethoprim (From Bactrim) Allergy Severe HIVES Verified 10/31/25 21:12 Penicillins Allergy Intermediate Hives Verified 10/31/25 21:12 sulfamethoxazole (From Allergy Mild Hives Verified 10/31/25 21:12 Bactrim) Review of Systems Review of Systems: Constitutional : No Weight loss, No Fever, No Chills, No Night Sweats, No Fatigue, No Malaise ENT/Mouth : No Hearing loss, No Ear Pain, No Nasal Congestion, No Sinus Pain, No Hoarseness, No sore throat, No Rhinorrhea, No Swallowing Difficulty Eyes: No Eye Pain, No Swelling, No Redness, No Foreign Body, No Discharge, No Vision Changes Cardiovascular : No Chest Pain, No SOB, No Dyspnea on Exertion, No Orthopnea, No Edema, No Palpitations Respiratory : No Cough, No Sputum, No Wheezing, No Smoke Exposure, No Dyspnea Gastrointestinal : No Nausea, No Vomiting, No Diarrhea, No Constipation, No abdominal Pain, No Hematochezia, No Melena Genitourinary : no irregular bleeding, No Dysuria, No Urinary Frequency, No Hematuria, No Urinary Incontinence, No Urgency, No Flank Pain, No Urinary Flow Changes, No Hesitancy Musculoskeletal : No joint pain, No Myalgias, No Joint Swelling Skin : No Skin Lesions, No rash Neuro : No Weakness, No Numbness, No Paresthesias, No Loss of Consciousness, No Dizziness, No Headache Psych : Complaining of anxiety, No Depression, No SI/HI/AH/VH, No Social Issues, Heme/Lymph: No Bruising, No Bleeding,No Lymphadenopathy Endocrine : No Polyuria, No Polydipsia, No Temperature Intolerance [facility] Past Medical History 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 or 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 (media production operator) Alcohol intake: never Patient Tobacco Use Status: Never used Tobacco Smoked in Last 30 Days: No Advance Directives: Yes Advance Directives on File: Yes Advance Directives Date on File: 01/28/24 Do you have a plan to hurt others: No Plan service: No Physical Exam Exam: Exam: Appearance: Alert. Oriented X3. No acute distress. Eyes: Pupils equal, round and reactive to light. ENT: Pharynx normal. Neck: Normal inspection. Neck supple. No lymph nodes noted. No crepitus CVS: Normal heart rate and rhythm. Pulses normal. Normal S1 and S2 Respiratory: No respiratory distress. Breath sounds normal. No Wheezing. No rales Abdomen: Soft and nontender. No rigidity. No distention. Skin: Skin warm and dry. Normal skin color. Normal skin turgor. Extremities: No lower extremity edema. No Lacerations. No Rash, patient is ambulatory Neuro: Oriented X 3. No motor deficit. No sensory deficit. Moving all extremities. No slurred speech. CN 2 through 12 grossly intact Psych: calm, cooperative, normal affect Vital Signs: Vital Signs: Last Vital Signs Temp 98 F 10/31/25 21:11 Pulse 88 10/31/25 21:11 Resp 18 10/31/25 21:11 BP 157/74 H 10/31/25 21:11 Pulse Ox 98 10/31/25 21:11 O2 Del Method Room Air 10/31/25 21:11 BMI result Body Mass Index 27.4 Discharge Plan Discharge Clinical Impression: Anxiety Patient Disposition: Home, Self-Care Instructions: Anxiety (ED) Additional Instructions: Please follow-up with your primary care physician tomorrow. If you have any worsening or new symptoms, please return to the emergency room or call 911 Prescriptions: New meclizine 25 mg tablet 25 mg PO BID PRN (Reason: dizziness) Qty: 14 0RF No Action metoprolol succinate 50 mg tablet extended release 24 hr 50 mg PO DAILY Qty: 90 2RF omeprazole 20 mg Tablet,Delayed Release (Dr/Ec) 20 mg PO DAILY@0630 meclizine 12.5 mg tablet 12.5 mg PO TID PRN (Reason: dizziness or vertigo) Qty: 30 0RF meclizine 25 mg tablet 25 mg PO BID PRN (Reason: dizziness) Qty: 14 0RF trazodone 50 mg tablet 50 mg PO BEDTIME ferrous sulfate [FeroSul] 325 mg (65 mg iron) tablet 325 mg PO DAILY bisacodyl 5 mg tablet,delayed release (DR/EC) 5 mg PO DAILY PRN (Reason: constipation) rosuvastatin 20 mg tablet 20 mg PO BEDTIME aspirin 81 mg tablet,delayed release (DR/EC) 81 mg PO QAM multivitamin Tablet 1 tab PO QAM melatonin 10 mg tablet extended release 10 mg PO BEDTIME PRN (Reason: Insomnia) cholecalciferol (vitamin D3) 25 mcg (1,000 unit) tablet 25 mcg PO DAILY acetaminophen 500 mg tablet 500 mg PO Q8H PRN (Reason: pain) docusate sodium [Colace] 100 mg capsule 200 mg PO BID Qty: 20 0RF ibuprofen 200 mg tablet 200 mg PO Q6H PRN (Reason: pain) Qty: 20 0RF ketotifen fumarate 0.025 % (0.035 %) drops 1 drp ophthalmic (eye) BID PRN (Reason: allergies) mirtazapine 45 mg tablet 45 mg PO BEDTIME clonazepam 0.5 mg tablet 0.5 mg PO TID hydroxyzine HCl 25 mg tablet 10 mg PO DAILY PRN (Reason: anxiety) fluticasone propionate [Flonase Allergy Relief] 50 mcg/actuation spray,suspension 2 spray intranasal DAILY PRN (Reason: Allergic Symptoms) Rx Instructions: administer into each nostril apixaban 5 mg tablet 5 mg PO BID valsartan 160 mg tablet 160 mg PO QPM meclizine 25 mg tablet 25 mg PO BID PRN (Reason: dizziness) Qty: 14 0RF sertraline 100 mg tablet 100 mg PO DAILY amlodipine 10 mg tablet 10 mg PO DAILY Print Language: Finnish
--- OUTSIDE RECORDS SUMMARY | 2025-11-01 00:43 | XMS_ITS | Encounter Summary ---
Author Organization [employer] Address [address] [facility] [address] [place] [address] Care Team Providers Care Band Attacher Name Role Phone Name, Nitin PIKE Primary Care Provider [phone] Reason for Visit * Reason Comments Med Refill Encounter Details Date Type Department Care Team (Late st Contact Info) Description 04/20/2025 Refill [facility] [address] [place] [address] Zechariah Cheung MD [address] [place] [address] Allergic rhinitis, unspecified seasonality, unspecified trigger Social [...] Office Visit [facility] [address] [place] [address] NameNitin MD [address] [place] [address] documented as of this encounter Visit Diagnoses Diagnosis Allergic rhinitis, unspecified seasonality, unspecified trigger documented in this encounter Additional Health Concerns Assessment Noted Time PHQ-9 Depression Total Score: 6 02/13/20 9:14 AM EDT documented as of this encounter Care Teams Band Attacher Relationship Specialty Start Date End Date Nitin Echevarria MD [address] [place] [id number] PCP - General Family Medicine 08/26/17 [facility] 09/01/24 documented as of this encounter
--- OUTSIDE RECORDS SUMMARY | 2025-11-01 00:43 | XMS_ITS | Encounter Summary ---
Author Organization [employer] Address [address] [place] [address] Care Team Providers Care Rn Clinical Quality Name Role Phone Name, Nitin PIKE Primary Care Provider [phone] Reason for Visit * Reason Onset Date Comments Med Refill 11/08/2024 Encounter Details Date Type Department Care Team ([facility] st Contact Info) Description 11/08/[address] [facility] [address] [place], [place] [phone] Name, MD Nitin [address] [place] [address] Med Refill Social History Tobacco Use Types [...] 5 MG tablet To be sent to: [facility] [place], [place] - [address] [facility] documented in this encounter Plan of Treatment Upcoming Encounters Date Type Department Care Team ([facility] st Contact Info) Description 11/07/2025 10:00 AM EST Office Visit [facility] [address] [place] [address] Name, MD Nitin [address] [place] [address] documented as of this encounter Visit Diagnoses Not on filedocumented in this encounter Additional Health Concerns Assessment Noted Time PHQ-9 Depression Total Score: 6 02/13/20 24 9:14 AM EDT documented as of this encounter Care Teams Rn Clinical Quality Relationship Specialty Start Date End Date Name, MD Nitin [address] [place] [address] PCP - General Family Medicine 08/26/17 [facility] 09/01/24 documented as of this encounter
--- OUTSIDE RECORDS SUMMARY | 2025-11-01 00:43 | XMS_ITS | Encounter Summary ---
Author Organization [employer] Address [address] [facility] [address] [place] [address] Care Team Providers Care Travel Accommodations Rater Name Role Phone Name, Nitin PIKE Primary Care Provider [phone] Reason for Visit * Reason Onset Date Comments Hospital Follow-up 10/20/2024 Encounter Details Date Type Department Care Team ([facility] Contact Info) Description 10/20/2024 Telephone [facility] [address] [place], [place] [phone] Name, MD Nitin [address] [place] [address] Hospital Follow-up Social History Tobacco Use Types [...] from pt requesting a HDF appt. Hospital: [facility] Date of admission: 10/17 Discharge date: 10/19 Diagnosed: High Blood Pressure and Fever Contact pt at [phone] *Send message to [place] Clinical Care Coordinators documented in this encounter Plan of Treatment Upcoming Encounters Date Type Department Care Team (Late st Contact Info) Description 11/07/2025 10:00 AM EST Office Visit [facility] [address] [place] [address] Name, MD Nitin [address] [place] [address] documented as of this encounter Visit Diagnoses Not on filedocumented in this encounter Additional Health Concerns Assessment Noted Time PHQ-9 Depression Total Score: 6 02/13/20 24 9:14 AM EDT documented as of this encounter Care Teams Travel Accommodations Rater Relationship Specialty Start Date End Date Name, MD Nitin [address] [place] [address] PCP - General Family Medicine 08/26/17 [facility] 09/01/24 documented as of this encounter
--- OUTSIDE RECORDS SUMMARY | 2025-11-01 00:43 | XMS_ITS | Encounter Summary ---
Author Organization [employer] Address [address] [facility] [address] [place] [address] Care Team Providers Care Tank Farm Operator Name Role Phone Name, Nitin PIKE Primary Care Provider [phone] Reason for Visit * Reason Onset Date Comments ER Follow-up 05/04/2024 Encounter Details Date Type Department Care Team ([facility] Contact Info) Description 05/04/2024 Telephone [facility] [address] [place], [place] [phone] Name, MD Nitin [address] [place] [address] ER Follow-up Social History Tobacco Use Types [...] 11:01 AM EDT T/C to pt. Through [employer] id - [id number] for below message, No answer. LVM to call back [phone] . * Telephone Encounter - Adithya Solorzano - 05/04/2024 9:35 AM EDT Noreen with [facility] calling to report ED visit on : Date: 04/28 Hospital: [facility] Seen for: UTI, Nausea, Rash. Noreen advised will be forwarding message to team nurses. Please contact pt at [phone]. documented in this encounter Plan of Treatment Upcoming Encounters Date Type Department Care Team (Late st Contact Info) Description 11/07/2025 10:00 AM EST Office Visit [facility] [address] [place] [address] Name, MD Nitin [address] [place] [address] documented as of this encounter Visit Diagnoses Not on filedocumented in this encounter Additional Health Concerns Assessment Noted Time PHQ-9 Depression Total Score: 6 02/13/20 9:14 AM EDT documented as of this encounter Care Teams Tank Farm Operator Relationship Specialty Start Date End Date Name, MD Nitin [address] [place] [address] PCP - General Family Medicine 08/26/17 [facility] 09/01/24 documented as of this encounter
--- OUTSIDE RECORDS SUMMARY | 2025-11-01 00:43 | XMS_ITS | Encounter Summary ---
Author Organization [employer] Address [address] [facility] [address] [place] [address] Care Team Providers Care Wet Washer Machine Name Role Phone Name, Nitin PIKE Primary Care Provider [phone] Reason for Visit * Reason Comments Med Refill Encounter Details Date Type Department Care Team (Late st Contact Info) Description 08/17/2025 Refill [facility] [address] [place], [place] [phone] Miryam Riley NP [address] [place], [place] [phone] Hypertension, unspecified type Social History Tobacco Use [...] EST Office Visit [facility] [address] [place] [phone] NameNitin MD [address] [place] [address] documented as of this encounter Visit Diagnoses Diagnosis Hypertension, unspecified type documented in this encounter Additional Health Concerns Assessment Noted Time PHQ-9 Depression Total Score: 3 04/29/20 25 9:41 AM EDT documented as of this encounter Care Teams Wet Washer Machine Relationship Specialty Start Date End Date Name, MD Nitin [address] [place] [address] PCP - General Family Medicine 08/26/17 [facility] 09/01/24 documented as of this encounter
--- OUTSIDE RECORDS SUMMARY | 2025-11-01 00:43 | XMS_ITS | Encounter Summary ---
Author Organization [employer] Address [address] [facility] [address] [place] [address] Care Team Providers Care Traffic Control Officer Name Role Phone Name, Nitin PIKE Primary Care Provider [phone] Reason for Visit * Reason Onset Date Comments Referral 08/24/2025 Encounter Details Date Type Department Care Team ([facility] st Contact Info) Description 08/24/[address] [facility] [address] [place], [place] [phone] Name, MD Nitin [address] [place] [address] Referral Social History Tobacco Use Types Packs/Day [...] DATE: 09/21/25 TIME: 10 am Facility Name: [facility] Type of Specialist: Physical therapy Facility Phone # : [phone] Fax #: [phone] documented in this encounter Plan of Treatment Upcoming Encounters Date Type Department Care Team (Late st Contact Info) Description 11/07/2025 10:00 AM EST Office Visit [facility] [address] [place], [place] [phone] Name, MD Nitin [address] [place] [address] documented as of this encounter Visit Diagnoses Not on filedocumented in this encounter Additional Health Concerns Assessment Noted Time PHQ-9 Depression Total Score: 3 04/29/20 9:41 AM EDT documented as of this encounter Care Teams Traffic Control Officer Relationship Specialty Start Date End Date Name, MD Nitin [address] [place] [address] PCP - General Family Medicine 08/26/17 [facility] 09/01/24 documented as of this encounter
--- OUTSIDE RECORDS SUMMARY | 2025-11-01 00:43 | XMS_ITS | Clinical Summary ---
Author Organization [facility] Address [address] [place] [address] Phone Care Team Providers Care Water Trainer Name Role Phone Physician, No Pcp Primary [...] mmol/L LAB CHEMISTRY METHOD 09/22/2024 3:15 AM [facility] Chloride 98 96 - 110 mmol/L LAB CHEMISTRY METHOD 09/22/2024 3:15 AM [facility] CO2 28 21 - 32 mmol/L LAB CHEMISTRY METHOD 09/22/2024 3:15 AM [facility] Anion Gap 6 3 - 11 LAB CHEMISTRY METHOD 09/22/2024 3:15 AM [facility] Glucose 119(H) 70 - 100 mg/dL LAB CHEMISTRY METHOD 09/22/2024 3:15 AM [facility] BUN 25 5 - 25 mg/dL LAB CHEMISTRY METHOD 09/22/2024 3:15 AM [facility] Creatinine 1.18(H) 0.50 - 1.10 mg/dL LAB CHEMISTRY METHOD 09/22/2024 3:15 AM [facility] eGFR 47(L) >=60 mL/min/1. 73m2 LAB CHEMISTRY METHOD 09/22/2024 3:15 AM [facility] Comment:Calculation based on the Chronic Kidney Disease Epidemiology Collaboration (CKD-EPI) equation refit without adjustment for race. BUN/Creatinine Ratio 21.2 LAB CHEMISTRY METHOD 09/22/2024 3:15 AM [facility] Calcium 9.3 8.5 - 10.5 mg/dL LAB CHEMISTRY METHOD 09/22/2024 3:15 AM [facility] AST (SGOT) 37 10 - 42 unit/L LAB CHEMISTRY METHOD 09/22/2024 3:15 AM [facility] ALT (SGPT) 25 10 - 60 unit/L LAB CHEMISTRY METHOD 09/22/2024 3:15 AM [facility] Alkaline Phosphatase 77 42 - 121 unit/L LAB CHEMISTRY METHOD 09/22/2024 3:15 AM EST [facility] Total Protein 8.0 6.0 - 8.0 g/dL LAB CHEMISTRY METHOD 09/22/2024 3:15 AM EST [facility] Albumin 4.2 3.2 - 5.0 g/dL LAB CHEMISTRY METHOD 09/22/2024 3:15 AM EST [facility] Total Bilirubin 0.4 0.0 - 1.4 mg/dL LAB CHEMISTRY METHOD 09/22/2024 3:15 AM EST [facility] Blood Venous blood specimen / Unknown Venipuncture / Unknown 09/22/2024 2:28 AM EST 09/22/2024 2:31 AM EST us Paul RUIZ LAB BLOOD ORDERABLES Final Resul t [facility] ([facility]) [facility] [address] [place] [address], from Last 3 Months or Most Recently Relevant to Health Maintenance Insurance [facility] MEDICARE Member Subscriber Plan / Payer (Ef fective 2021-Present) Name:Noreen Wing Relation to Subscriber:Self Name:Noreen Wing Payer ID:[id number] Group ID:[id number] Type:Not on file Address: [place] [address] [address] Care Teams Water Trainer Relationship Specialty Start Date End Date Physician, No Pcp PCP - General 09/22/24
--- OUTSIDE RECORDS SUMMARY | 2025-11-01 00:44 | XMS_ITS | Encounter Summary ---
Author Organization [employer] Address [address] [facility] [address] [place] [address] Care Team Providers Care Timber Cruiser Name Role Phone Name, Nitin PIKE Primary Care Provider [phone] Reason for Visit * Reason Onset Date Comments triage 12/18/2022 Encounter Details Date Type Department Care Team ([facility] st Contact Info) Description 12/18/2022 Telephone [facility] [address] [place], [place] [phone] Name, MD Nitin [address] [place] [address] triage Social History Tobacco Use Types Packs/Day [...] 12/18/2022 2:35 PM EST Called pt. Via [employer] school cleaner [id number] Eduardo. Pt. States that she has a [...] phone. Please reach out to pt. With Sudanese speaking another time to see what her [...] 10:00 AM EST Office Visit [facility] [address] [place] [address] Name, MD Nitin [address] [place] [address] documented as of this encounter Visit Diagnoses Not on filedocumented in this encounter Care Teams Timber Cruiser Relationship Specialty Start Date End Date Name, MD Nitin [address] [place] [address] PCP - General Family Medicine 08/26/17 [facility] 09/01/24 documented as of this encounter
--- OUTSIDE RECORDS SUMMARY | 2025-11-01 00:44 | XMS_ITS | Encounter Summary ---
Author Organization [employer] Address [address] [facility] [address] [place] [address] Care Team Providers Care Leather Sprayer Name Role Phone Name, Nitin PIKE Primary Care Provider Encounter Details Date Type Department Care Team (Late st Contact Info) Description 05/26/2023 Orders Only [facility] MEDICINE [address] [place] [address] [phone] Noreen Fox MD [address] [place] [address] [phone] Social History Tobacco Use Types Packs/Day Years [...] 11/07/2025 10:00 AM EST Office Visit [facility] MED[facility] [address] [place] [address] NameNitin MD [address] [place] [address] documented as of this encounter Visit Diagnoses Not on filedocumented in this encounter Care Teams Leather Sprayer Relationship Specialty Start Date End Date Name, MD Nitin [address] [place] [address] PCP - General Family Medicine 08/26/17 [facility] 09/01/24 documented as of this encounter
--- OUTSIDE RECORDS SUMMARY | 2025-11-01 00:44 | XMS_ITS | Encounter Summary ---
Author Organization [employer] Address 75 [facility] 7[address] [place] [address] Care Team Providers Care Operating Room Nurse Name Role Phone Name, Nitin PIKE Primary Care Provider [phone] Reason for Visit * Reason Onset Date Comments Results 08/29/2023 Encounter Details Date Type Department Care Team ([facility] st Contact Info) Description 08/29/2023 Telephone [facility] MED[facility]INE [address] [place], [place] [phone] Name, MD Nitin [address] [place] [address] Results Social History Tobacco Use Types Packs/Day [...] 09/01/2023 11:51 AM EDT Pt evaluated in [facility] today and is scheduled with pcp 09/03/23. * Telephone Encounter - Janette Huitron - 08/29/2023 4:06 PM EDT Tc from pt requesting a call in regards to urine results. Please contact pt at [phone] (Malay) documented in this encounter Plan of Treatment Upcoming Encounters Date Type Department Care Team (Late st Contact Info) Description 11/07/2025 10:00 AM EST Office Visit [facility] MED[facility]INE [address] [place] [address] Name, MD Nitin [address] [place] [address] documented as of this encounter Visit Diagnoses Not on filedocumented in this encounter Additional Health Concerns Assessment Noted Time PHQ-9 Depression Total Score: 12 023 9:37 AM EDT documented as of this encounter Care Teams Operating Room Nurse Relationship Specialty Start Date End Date Name, MD Nitin [address] [place] [address] PCP - General Family Medicine 08/26/17 [facility] 09/01/24 documented as of this encounter
--- OUTSIDE RECORDS SUMMARY | 2025-11-01 00:44 | XMS_ITS | Encounter Summary ---
Author Organization [employer] Address [address] [facility] [address] [place] [address] Care Team Providers Care Ldr Rn Name Role Phone Name, Nitin PIKE Primary Care Provider [phone] Reason for Visit * Reason Onset Date Comments FYI 01/21/2024 ER Follow-up 01/21/2024 Encounter Details Date Type Department Care Team ([facility] st Contact Info) Description 01/21/2024 Telephone [facility] [address] [place], [place] [phone] Name, MD Nitin [address] [place] [address] FYI; ER Follow-up Social History Tobacco Use [...] - 01/21/2024 1:54 PM EDT Message from [facility] noted. [facility] note sent to medical records. PCP does not rx Trazodone. Pt to f/u with psych prescriber. Pt is scheduled for f/u with pcp 02/13/24. * Telephone Encounter - Janette Huitron - 01/21/2024 9:45 AM EDT Tc from nata with [facility] ED calling in regards to pt. States pt was seen today for anxiety and is requesting trazodone. Will discharge pt with no medication change. Would also like to advise provider, pt was seen at [facility] on 01/17 for anxiety/insomnia as well documented in this encounter Plan of Treatment Upcoming Encounters Date Type Department Care Team (Late st Contact Info) Description 11/07/2025 10:00 AM EST Office Visit [facility] [address] [place] [address] Name, MD Nitin [address] [place] [address] documented as of this encounter Visit Diagnoses Not on filedocumented in this encounter Additional Health Concerns Assessment Noted Time PHQ-9 Depression Total Score: 12 023 9:37 AM EDT documented as of this encounter Care Teams Ldr Rn Relationship Specialty Start Date End Date Name, MD Nitin [address] [place] [address] PCP - General Family Medicine 08/26/17 [facility] 09/01/24 documented as of this encounter
--- OUTSIDE RECORDS SUMMARY | 2025-11-01 00:44 | XMS_ITS | Encounter Summary ---
Author Organization [employer] Address [address] [facility] [address] [place] [address] Care Team Providers Care Roll Or Tape Edge Machine Operator Name Role Phone Name, Nitin PIKE Primary Care Provider [phone] Reason for Visit * Reason Onset Date Comments Order(s) 12/09/2023 Encounter Details Date Type Department Care Team ([facility] Contact Info) Description 12/09/[address] [facility]INE [address] [place], [place] [phone] Name, MD Nitin [address] [place], [place] [phone] Order(s) Social History Tobacco Use Types Packs/Day [...] orders. If any questions please contact Noreen [phone]. documented in this encounter Plan of Treatment Upcoming Encounters Date Type Department Care Team (Late st Contact Info) Description 11/07/2025 10:00 AM EST Office Visit [facility] MED[facility]INE [address] [place] [address] Name, MD Nitin [address] [place] [address] documented as of this encounter Visit Diagnoses Not on filedocumented in this encounter Additional Health Concerns Assessment Noted Time PHQ-9 Depression Total Score: 12 023 9:37 AM EDT documented as of this encounter Care Teams Roll Or Tape Edge Machine Operator Relationship Specialty Start Date End Date Name, MD Nitin [address] [place] [address] PCP - General Family Medicine 08/26/17 [facility] 09/01/24 documented as of this encounter
--- OUTSIDE RECORDS SUMMARY | 2025-11-01 00:44 | XMS_ITS | Encounter Summary ---
Author Organization [email or web address] Address [address] [facility] 7[address] [place] [address] Care Team Providers Care Rag Collector Name Role Phone Name, Nitin PIKE Primary Care Provider [phone] Reason for Visit * Reason Onset Date Comments Verbal Orders 12/15/2023 Encounter Details Date Type Department Care Team ([facility] st Contact Info) Description 12/15/2023 Telephone [facility] [address] [place], [place] [phone] Name, MD Nitin [address] [place] [address] Verbal Orders Social History Tobacco Use Types [...] 12:03 PM EST Tc from [facility] with [employer] requesting verbal order to see pt 2 times a week for 4 weeks for Occupational Therapy, please contact J[facility] at [phone] documented in this encounter Plan of Treatment Upcoming Encounters Date Type Department Care Team (Late st Contact Info) Description 11/07/2025 10:00 AM EST Office Visit [facility] [address] [place] [address] Name, MD Nitin [address] [place] [address] documented as of this encounter Visit Diagnoses Not on filedocumented in this encounter Additional Health Concerns Assessment Noted Time PHQ-9 Depression Total Score: 12 023 9:37 AM EDT documented as of this encounter Care Teams Rag Collector Relationship Specialty Start Date End Date Name, MD Nitin [address] [place] [address] PCP - General Family Medicine 08/26/17 [facility] 09/01/24 documented as of this encounter
--- OUTSIDE RECORDS SUMMARY | 2025-11-01 00:44 | XMS_ITS | Encounter Summary ---
Author Organization [employer] Address 75 [facility] 7[address] [place] [address] Care Team Providers Care Senior Sales Operations Manager Name Role Phone Name, Nitin PIKE Primary Care Provider [phone] Reason for Visit * Reason Onset Date Comments Durable Medical Equipment 12/09/2023 Encounter Details Date Type Department Care Team ([facility] st Contact Info) Description 12/09/2023 Telephone [facility] [address] [place], [place] [phone] Name, MD Nitin [address] [place], [place] [phone] Durable Medical Equipment Social History Tobacco Use [...] 12/09/2023 4:58 PM EST Call returned to [facility] at [facility] [phone] ext. [phone]. [facility] states that [facility] attempted to provide PT at home but pt refused. [facility] pt is requesting outpatient PT. [facility] pt is seeing a counselor more regularly and has agreed to VNA referral. Reports pt has had 3 falls in the past 2 months. [facility] states [facility] no longer has visiting nurses. [facility] recommends [facility] or [facility] for VNA referral. [facility] also requesting DME rx for rollator walker and a straight cane. Requests that DME rx be faxed to [phone]. Advised requests will be sent to pcp. * Telephone Encounter - Adithya Solorzano - 12/09/2023 4:25 PM EST Tc from [facility] requesting DME: Rollator walker . documented in this encounter Plan of Treatment Upcoming Encounters Date Type Department Care Team (Late st Contact Info) Description 11/07/2025 10:00 AM EST Office Visit [facility] [address] [place] [address] Name, MD Nitin [address] [place] [address] documented as of this encounter Visit Diagnoses Not on filedocumented in this encounter Additional Health Concerns Assessment Noted Time PHQ-9 Depression Total Score: 12 023 9:37 AM EDT documented as of this encounter Care Teams Senior Sales Operations Manager Relationship Specialty Start Date End Date Name, MD Nitin [facility] [place] [address] PCP - General Family Medicine 08/26/17 [facility] 09/01/24 documented as of this encounter
--- OUTSIDE RECORDS SUMMARY | 2025-11-01 00:44 | XMS_ITS | Encounter Summary ---
Author Organization [employer] Address [address] [facility] [address] [place] [address] Care Team Providers Care Laser Print Operator Name Role Phone Name, Nitin PIKE Primary Care Provider [phone] Encounter Details Date Type Department Care Team ([facility] Contact Info) Description 01/06/2023 Orders Only [facility] [address] [place], [place] [phone] Lisha Kelly LPN Social History Tobacco Use [...] 11/07/2025 10:00 AM EST Office Visit [facility]INE [address] [place], [place] [phone] NameNitin MD [address] [place] [address] documented as of this encounter Visit Diagnoses Not on filedocumented in this encounter Care Teams Laser Print Operator Relationship Specialty Start Date End Date NameNitin MD [address] [place] [address] PCP - General Family Medicine 08/26/17 [facility] 09/01/24 documented as of this encounter
--- OUTSIDE RECORDS SUMMARY | 2025-11-01 00:44 | XMS_ITS | Encounter Summary ---
Author Organization [employer] Address [address] [facility] [address] [place] [address] Care Team Providers Care Airport Skilled Maintenance Supervisor Name Role Phone Name, Nitin PIKE Primary Care Provider [phone] Reason for Visit * Reason Comments Med Refill Encounter Details Date Type Department Care Team (Late st Contact Info) Description 08/16/2024 Refill [facility]S [address] [place], [place] [phone] Name, MD Nitin [address] [place] [address] Heartburn Social History Tobacco Use Types Packs/Day [...] EST Office Visit [facility] MEDICINE [address] [place] [address] NameNitin MD [address] [place] [address] documented as of this encounter Visit Diagnoses Diagnosis Heartburn documented in this encounter Additional Health Concerns Assessment Noted Time PHQ-9 Depression Total Score: 6 02/13/20 24 9:14 AM EDT documented as of this encounter Care Teams Airport Skilled Maintenance Supervisor Relationship Specialty Start Date End Date NameNitin MD [address] [place] [address] PCP - General Family Medicine 08/26/17 [facility] 09/01/24 documented as of this encounter
--- OUTSIDE RECORDS SUMMARY | 2025-11-01 00:44 | XMS_ITS | Encounter Summary ---
Author Organization [employer] Address [address] [facility] 7[address] [place] [address] Care Team Providers Care Patrol Man Name Role Phone Name, Nitin PIKE Primary Care Provider [phone] Reason for Visit * Reason Onset Date Comments ER Follow-up 05/31/2024 Encounter Details Date Type Department Care Team ([facility] Contact Info) Description 05/31/2024 Telephone [facility] MEDICINE [address] [place], [place] [phone] Name, MD Nitin [address] [place] [address] ER Follow-up Social History Tobacco Use Types [...] 1:36 PM EDT T/C to Pat ([facility]) [phone] for below message, no answer. LVM to call back on [phone]. * Telephone Encounter - Melany Santos RN - 05/31/2024 1:32 PM EDT DAVID T/C to pt. Through [employer] id - [id number] for below message, pt. Had recent fall and ED visit at [facility]. RN will request GRACE piedra from [facility]. Pt. Is doing good, states I am tired andsleeping. Pt. Dose not has any question or concern right now. Pt. Already has HDF apt. Schedule on 06/10/2024. Pt. Advised to give call to [facility] if any questions or concerns. Pt. [...] AM EST Office Visit [facility] MEDICINE [address] [place] [address] Name, MD Nitin [address] [place] [address] documented as of this encounter Visit Diagnoses Not on filedocumented in this encounter Additional Health Concerns Assessment Noted Time PHQ-9 Depression Total Score: 6 02/13/20 24 9:14 AM EDT documented as of this encounter Care Teams Patrol Man Relationship Specialty Start Date End Date Name, MD Nitin [address] [place] [address] PCP - General Family Medicine 08/26/17 [facility] 09/01/24 documented as of this encounter
--- OUTSIDE RECORDS SUMMARY | 2025-11-01 00:44 | XMS_ITS | Clinical Summary ---
Author Organization [employer] Address [address] [place] [address] [address] [place] [address] Care Team Providers Care [employer] Farm Manager Name Role Phone Name, Nitin PIKE Primary Care Provider [phone] Allergies Active Allergy Reactions Criticality Noted Date [...] MOUTH EVERY 8 HOURS NEEDED FOR PAIN (ROMANSH LABEL) 90 tablet 025 Active omeprazole (PriLOSEC) [...] MOUTH EVERY MORNING WITH FOOD 30 tablet 10/25/20 25 8:24 AM EST 025 Active linaCLOtide (Linzess) 145 MCG capsuleIndication s:Chronic constipation TAKE 1 CAPSULE BY MOUTH EVERY MORNING BEFORE BREAKFAST, DO NOT BREAK, CRUSH, DISSOLVE OR CHEW 30 capsule 10/24/20 25 11:17 AM EST 025 Active cholecalciferol (Vitamin D-3) 25 MCG tabletIndications :Vitamin D deficiency TAKE 1 TABLET BY MOUTH TWICE DAILY IN THE MORNING AND IN THE EVENING 60 tablet 025 Active Bisacodyl EC 5 MG EC tablet TAKE 1 TABLET BY MOUTH EVERY DAY NEEDED FOR CONSTIPATION 30 tablet 3 10/24/20 25 11:17 AM EST Active Bisacodyl EC 5 MG EC tablet TAKE 1 TABLET BY MOUTH EVERY DAY NEEDED FOR CONSTIPATION. DO NOT BREAK, CRUSH, DISSOLVE OR CHEW 30 tablet 3 09/27/20 1:36 PM EST 024 2024 Discontinued linaCLOtide (Linzess) 145 MCG capsuleIndication s:Chronic constipation Do not crush or chew.TAKE 1 CAPSULE BY MOUTH EVERY DAY BEFORE BREAKFAST, DO NOT BREAK, CRUSH, DISSOLVE OR CHEW 30 capsule 09/27/20 8:16 AM EST 025 2024 Discontinued Ferrous Sulfate (iron) 325 (65 Fe) MG tablet TAKE 1 TABLET BY MOUTH EVERY MORNING WITH FOOD 30 tablet 09/27/20 8:16 AM EST 025 2024 Discontinued cholecalciferol (Vitamin D-3) 25 MCG tabletIndications :Vitamin D deficiency TAKE 1 TABLET BY MOUTH TWICE DAILY IN THE MORNING AND IN THE EVENING 60 tablet 10/04/20 8:07 AM EST 025 2024 Discontinued meclizine (Antivert) 25 MG tabletIndications :Vertigo Take 1 tablet (25 mg) by mouth if needed in the morning, at noon, and at bedtime for dizziness for up to 10 days. 30 tablet 09/29/20 9:50 AM EST 2024 Diclofenac Sodium 1 % gelIndications:Ac [place] right-sided low back pain without sciatica Apply 1 Application topically if needed in the morning, at noon, in the evening, and at bedtime (pain) for up to 7 days. 100 g 09/29/20 9:50 AM EST 025 2024 Active Problems [...] it calms her down. I called [facility] pharmacy to attempt a med rec they instructed me that she is on med box and one week at a time prescriptions because she would break into her med boxes to take more Ambien or xanax. She is being seen by Izzy Perea at [facility]. He is aware of her [...] I received a call from the [facility] pharmacy instructing me that she was at [...] Type Department Care Team Description 10/20/2025 Refill [facility] MEDICINE [address] [place] [address] Name, MD Nitin 10/19/2025 Refill [facility] MED & PEDS [address] [place] [address] Name, MD Nitin Chronic constipation; Vitamin D deficiency 10/03/2025 Orders Only GENERIC EXTERNAL DATA DEPARTMENT Provider, Generic External Data 09/29/2025 8:40 AM EST Office Visit [facility] [address] [place] [address] Zach Javier MD Acute right-sided low back pain without sciatica (Primary Dx); Vertigo 09/29/2025 Travel 09/28/2025 Refill [facility] MED & PEDS [address] [place] [address] Nitin Echevarria MD Vitamin D deficiency 09/27/2025 Refill [facility] MED & PEDS [address] [place] [address] Nitin Echevarria MD 09/22/[address] [address] Nitin Echevarria MD Nurse Triage 09/22/2025 Orders Only GENERIC EXTERNAL DATA DEPARTMENT Provider, Generic External Data 09/21/[address] [address] Nitin Echevarria MD Request For Order(s); Referral 09/19/2025 Refill [facility] MED & PEDS [address] [place] [address] Nitin Echevarria MD 09/19/2025 Orders Only GENERIC EXTERNAL DATA DEPARTMENT Provider, Generic External Data 09/18/2025 Orders Only [facility] External Provider, [facility] 09/17/2025 Orders Only GENERIC EXTERNAL DATA DEPARTMENT Provider, Generic External Data 09/09/[address] [address] Thea Warren FNP Results 09/06/2025 1:30 PM EDT Office Visit [address] [address] Thea Warren FNP Acute pain of left knee (Primary Dx); Urinary frequency; Acute cystitis without hematuria 09/06/2025 Orders Only [address] [address] Thea Warren FNP 09/06/2025 Travel 09/05/[address] [address] Nitin Echevarria MD Chart Prep 09/03/2025 Orders Only GENERIC EXTERNAL DATA DEPARTMENT Provider, Generic External Data 08/30/2025 Patient Outreach [facility] MED & PEDS [address] [place] [address] Nitin Echevarria MD Pre-visit Planning ([facility] unable to reach) 08/24/2025 Telephone [facility] MEDICINE [address] [place] [address] Nitin Echevarria MD Referral 08/24/2025 Telephone [facility] MEDICINE [address] [place] [address] Nitin Echevarria MD Verbal Order 08/22/2025 Orders Only [facility] External Provider, [facility] 08/18/2025 Orders Only GENERIC EXTERNAL DATA DEPARTMENT Provider, Generic External Data 08/17/2025 Refill [facility] MEDICINE [address] [place] [address] Nitin Echevarria MD 08/17/2025 Refill [facility] MEDICINE [address] [place] [address] Miryam Riley NP Hypertension, unspecified type 08/15/2025 Refill [facility] MEDICINE [address] [place] [address] Nitin Echevarria MD Heartburn 08/14/2025 Refill [facility] P[facility]S [address] [place] [address] Nitin Echevarria MD Heartburn; Vitamin D deficiency 08/09/2025 11:15 AM EDT Office Visit [facility] MEDICINE [address] [place] [address] Nitin Echevarria MD Generalized anxiety disorder with panic attacks (Primary Dx); Encounter for immunization; Chronic bilateral low back pain without sciatica 08/09/2025 Travel from Last 3 Months Immunizations Immunization [...] 12+ 02/19/2022,01/19/20 21,12/22/2020 Pfizer Covid-19 Vaccine 12+ 08/16/2024, 2,09/05/2021 Pfizer Covid-19 Vaccine 12+ Bivalent 08/22/2022 Pneumococcal [...] [facility] MEDICINE [address] [place] [address] Name, MD Nitin [address] [place] [address] Health Maintenance Due Date Last Done Comments [...] METABOLIC PANEL Routine 08/18/2025 8:44 AM EDT POCT GLYCATED HEMOGLOBIN, TOTAL Routine 01/10/2025 11:02 AM EST Generalized anxiety disorder with panic attacks LIPID PANEL, STANDARD Routine 09/19/2022 8:08 AM EST from Last 3 Months or Most Recently Relevant to Health Maintenance Results * (ABNORMAL) Urinalysis, Complete, with Reflex to Culture (10/03/2025 11:18 PM EST) Only the most recent of2 resultswithin the time period is included. Color Urine Yellow [facility] Appearance Urine Clear [facility] PH 6.0 5.0 - 9.0 [facility] Glucose Urine UA Negative Negative mg/dL [facility] Urine Blood Negative Negative [facility] Specific [place] - Urine 1.015 1.005 - 1.025 [facility] Urine Protein Negative Neg-Trace mg/dL [facility] Urine Ketones Negative Negative mg/dL [facility] Nitrite Urine Negative Negative [facility] Leukocyte Esterase Urine Moderate (2+)(A) Negative [facility] RBC Urine 0-2 0 - 2 /HPF [facility] Urine WBC 11-20(A) 0 - 5 /HPF [facility] Urine Squamous Epithelial Cell 0-2 0 - 2 /HPF [facility] Urine Bacteria None Seen None Seen [facility] Hyaline Casts, Urine 0-2 0 - 2 /LPF [facility] 10/03/2025 11:1 8 PM EST 10/03/2025 11:21 PM EST Narrative [facility] - 10/03/2025 11:29 PM EST [id number], Clean Catch Generic External Data Provider LAB URINE ORDERAB LES Final Result Performing Organization Address [facility] Co de Phone Number [facility] [address] [place] [phone] * Culture, Urine, Routine (10/03/2025 12:00 AM EST) Only the most recent of3 resultswithin the time period is included. Urine Urine specimen obtained by clean catch procedure / Unknown 10/03/2025 10/03/2025 Comment:[facility] - 10/05/2025 11:28 AM EST Urine Culture Report Result Urine Culture 10,000 to 50,000 cfu/ml Urine Culture Mixed bacterial jann characteristic of Urine Culture urogenital contamination. Specimen Source: Urine clean catch Generic External Data Provider LAB MICROBIOLOGY - GENERAL ORDERABLES Final Result Performing Organization Address [facility] de Phone Number [facility] [address] [place] [phone] * (ABNORMAL) CBC auto differential (09/22/2025 7:21 AM EST) Only the most recent of3 resultswithin the time period is included. White Blood Count 6.6 4.8 - 10.8 X10*3/uL [facility] Red Blood Count 4.39 4.20 - 5.50 X10*6/uL [facility] Hemoglobin 12.2 12.0 - 16.0 g/dl [facility] Hematocrit 37.3 37.0 - 47.0 % [facility] Mean Corpuscular Volume 85.0 80.0 - 98.0 fL [facility] Mean Corpuscular Hemoglobin 27.8 27.0 - 33.0 pg [facility] Mean Corpuscular HGB Conc 32.7 31.0 - 35.0 g/dl [facility] Red Cell Distribution Width 13.8 11.0 - 16.0 % [facility] Platelet Count 295 160 - 400 X10*3/uL [facility] Mean Platelet Volume 8.1(L) 9.4 - 12.3 fL [facility] Neutrophils Percent Auto 70.6 45 - 73 % [facility] Imm Gran Pct Auto 0.5(H) 0.0 - 0.4 % [facility] Lymphocytes Percent Auto 18.3(L) 20 - 40 % [facility] Monocytes Percent Auto 9.4 2 - 11 % [facility] Eosinophils Percent Auto 0.6 0 - 4 % [facility] Basophils Percent Auto 0.6 0 - 2 % [facility] NRBC Pct Auto 0.0 0.0 - 0.2 /100WBC [facility] Neutrophils Absolute Auto 4.7 2.0 - 8.3 x10*3/uL [facility] Imm Gran Abs Auto 0.03 0.00 - 0.03 X10*3/uL [facility] Lymphocytes Absolute Auto 1.2 1.2 - 4.9 X10*3/uL [facility] Monocytes Absolute Auto 0.6 0.1 - 1.2 X10*3/uL [facility] Eosinophils Absolute Auto 0.0 0.0 - 0.4 X10*3/uL [facility] Basophils Absolute Auto 0.0 0.0 - 0.2 X10*3/uL [facility] NRBC Abs Auto 0.000 0.0 - 0.012 X10*3/uL [facility] 09/22/2025 7:21 AM EST 09/22/2025 7:23 AM EST us Generic External Data Provider LAB BLOOD ORDERAB LES Final Result [facility] [address] [place] [phone] [phone] * (ABNORMAL) Basic Metabolic Panel (09/22/2025 7:21 AM EST) Only the most recent of2 resultswithin the time period is included. Sodium 137 135 - 145 mmol/L [facility] Potassium 4.7 3.3 - 5.1 mmol/L [facility] Chloride 100 96 - 108 mmol/L [facility] Carbon Dioxide 29 22 - 29 mmol/L [facility] Anion Gap 13 12 - 20 [facility] Urea Nitrogen (BUN) 18(H) 9 - 16 mg/dL [facility] Creatinine, Serum 0.85 0.5 - 1.4 mg/dL [facility] Creatinine Clr Calc Pharmacy 56.1 [facility] Comment:Provided height and weight: 162.56 cm,89.3 kg.eGFR (calculated from the MDRD study equation) and eCrCl(calculated from the Cockcroft-Gault equation) are based ondifferent parameters and may not yield comparable results.If eCrCl result is absurd, please check patient'sheight/weight. Estimated Glomerular Filt Rate >60 [facility] Comment:Chronic Kidney Disea se: Estimated GFR < 60 mL/min/1.89h2Mjhygj Kidney Disease: Estimated GFR < 15 mL/min/1.73m2 Glucose 105 60 - 115 mg/dL [facility] Calcium 10.0 8.4 - 10.2 mg/dL [facility] 09/22/2025 7:21 AM EST 09/22/2025 7:23 AM EST us Generic External Data Provider LAB BLOOD ORDERAB LES Final Result [facility] [address] [place] [address] [phone] * CT Head w/o Contrast (09/19/2025 3:43 AM EST) Only the most recent of2 resultswithin the time period is included. Anatomical Region Laterality Modality Head, Neck Computed Tomogra phy 09/19/2025 3:43 AM EST Narrative 09/19/2025 3:45 AM EST [address] [address] [address] Scan Report Signed Patient: Noreen Wing MR#: [id number] : 1945 Acct:[id number] Age/Sex: 79 / F ADM Date: 09/18/25 Loc: HO.ED Attending Dr: Ordering Physician: Marium Ny DO Date of Service: 09/19/25 Procedure(s): CT head/brain wo IV con Accession Number(s): [id number] cc: Marium Ny DO; [facility] Report Number: [id number]: Total DLP = 747.02 mGy-cm Reason for [...] in OV> 09/19/25343 DD/ 2 TD/TT: 09/19/25342 Credit Collections Manager: Procedure Note Donotuseinterpreter, Image - 09/19/[address] [address] [address] Scan Report Signed Patient: Noreen WingMR#: [id number] : 1945cct:[id number] Age/Sex: 79 / FADM Date: 09/18/25 Loc: HO.ED Attending Dr: Ordering Physician: Marium Ny DO Date of Service: 09/19/25 Procedure(s): CT head/brain wo IV con Accession Number(s): [id number] cc: Marium Ny DO; [facility] Report Number: [id number]: Total DLP = 747.02 mGy-cm Reason for [...] in OV> 09/19/25343 DD/ 2 TD/TT: 09/19/25342 Credit Collections Manager: [facility] External Provider IMG CT PROCEDURES Edited Result - Final * CT Cervical Spine w/o Contrast (09/19/2025 3:42 AM EST) Only the most recent of2 resultswithin the time period is included. Anatomical Region Laterality Modality Spine, C-spine Computed Tomogra phy 09/19/2025 3:42 AM EST Narrative 09/19/2025 3:43 AM EST [place] [address] CT Scan Report Signed Patient: Noreen Wing MR#: [id number] : 1945 Acct:[id number] Age/Sex: 79 / F ADM Date: 09/18/25 Loc: HO.ED Attending Dr: Ordering Physician: Marium Ny DO Date of Service: 09/19/25 Procedure(s): CT cervical spine wo IV con Accession Number(s): [id number] cc: Marium Ny DO; [facility] Report Number: [id number]: Total DLP = 428.77 mGy-cm Reason for Exam: fall, head trauma CLINICAL HISTORY: fall, head trauma CT cervical spine without contrast Comparison: CT/SR - CT CERVICAL SPINE WO IV CON - 09/03/25 13:35 EDT Findings: The alignment of the cervical spine is normal. There is no fracture. There is dmal-lx-uwovfeot C5-6 degenerative disc disease. There are posterior osteophytes at C5-6 probably causing tgdf-es-enffexyq central canal stenosis. There is multilevel facet [...] in OV> 09/19/25341 DD/ 1 TD/TT: 09/19/25341 Credit Collections Manager: Procedure Note Donotuseinterpreter, Image - 09/19/[address] [place] [address] [address] Scan Report Signed Patient: Jennifer Wing#: [id number] : 1945cct:[id number] Age/Sex: 79 / FADM Date: 09/18/25 Loc: HO.ED Attending Dr: Ordering Physician: Marium Ny DO Date of Service: 09/19/25 Procedure(s): CT cervical spine wo IV con Accession Number(s): [id number] cc: Marium Ny DO; [facility] Report Number: [id number]: Total DLP = 428.77 mGy-cm Reason for Exam: fall, head trauma CLINICAL HISTORY: fall, head trauma CT cervical spine without contrast Comparison: CT/SR - CT CERVICAL SPINE WO IV CON - 09/03/25 13:35 EDT Findings: The alignment of the cervical spine is normal. There is no fracture. There is xnxb-jm-xpzycapm C5-6 degenerative disc disease. There are posterior osteophytes at C5-6 probably causing pyra-be-pylyclpe central canal stenosis. There is multilevel facet [...] in OV> 09/19/25341 DD/ 1 TD/TT: 09/19/25341 Credit Collections Manager: [facility] External Provider IMG CT PROCEDURES Edited Result - Final * High Sensitivity Troponin I (09/19/2025 12:26 AM EST) Only the most recent of2 resultswithin the time period is included. TROPONIN I HIGH SENSITIVITY <2.7 <3.5 - 17.0 ng/L [facility] Comment:The Mckeon high sens itivity Troponin-I results should beused in conjunction with other diagnostic information suchas ECG, clinical observations and information, and patientsymptoms to aid in the diagnosis of AR. 09/19/2025 12:2 6 AM EST 09/19/2025 12:28 AM EST Generic External Data Provider LAB BLOOD ORDERAB LES Final Result [facility] [address] [place] [phone] * Prothrombin Time-INR (09/19/2025 12:26 AM EST) Prothrombin Time 12.5 11.2 - 13.5 SEC [facility] INTERNATIONAL NORM RATIO 1.0 0.9 - 1.1 [facility] Comment:INTERNATIONAL NORMAL IZED RATIO [...] LAB BLOOD ORDERAB LES Final Result [facility] [address] [place] [address] [phone] * (ABNORMAL) Comprehensive Metabolic Panel (09/19/2025 12:26 AM EST) Only the most recent of2 resultswithin the time period is included. Sodium 136 135 - 145 mmol/L [facility] Potassium 4.1 3.3 - 5.1 mmol/L [facility] Chloride 101 96 - 108 mmol/L [facility] Carbon Dioxide 25 22 - 29 mmol/L [facility] Anion Gap 14 12 - 20 [facility] Urea Nitrogen (BUN) 33(H) 9 - 16 mg/dL [facility] Creatinine, Serum 0.99 0.5 - 1.4 mg/dL [facility] Creatinine Clr Calc Pharmacy 45.4 [facility] Comment:Provided height and weight: 157.48 cm,86.183 kg.eGFR (calculated from the MDRD study equation) and eCrCl(calculated from the Cockcroft-Gault equation) are based ondifferent parameters and may not yield comparable results.If eCrCl result is absurd, please check patient'sheight/weight. Estimated Glomerular Filt Rate 54 [facility] Comment:Chronic Kidney Disea se: Estimated GFR < 60 mL/min/1.27b3Bgotnj Kidney Disease: Estimated GFR < 15 mL/min/1.73m2 Glucose 108 60 - 115 mg/dL [facility] Calcium 8.9 8.4 - 10.2 mg/dL [facility] Bilirubin, Total 0.3 0.0 - 1.0 mg/dL [facility] Aspartate Amino Transferase 26 5 - 31 U/L [facility] Alanine Aminotransferase 14 0 - 31 U/L [facility] Total Protein 7.6 6.5 - 8.0 g/dL [facility] Albumin Level 4.1 3.5 - 5.0 g/dL [facility] Alkaline Phosphatase 92 39 - 117 U/L [facility] 09/19/2025 12:2 6 AM EST 09/19/2025 12:28 AM EST us Generic External Data Provider LAB BLOOD ORDERAB LES Final Result Performing Organization Address City/State/[facility] Co de Phone Number [facility] [address] [place] [address] [phone] * XR Knee 4+ Views Left (09/18/2025 3:36 PM EST) Only the most recent of2 resultswithin the time period is included. Anatomical Region Laterality Modality Lower Extremities, Knee Left [facility] 09/18/2025 3:36 PM EST Narrative 09/18/2025 3:39 PM EST [place] [address] XRay Report Signed Patient: Noreen Wing MR#: [id number] : 1945 Acct:[id number] Age/Sex: 79 / F ADM Date: 09/18/25 Loc: HO.ED Attending Dr: Ordering Physician: Cuco Amador Date of Service: 09/18/25 Procedure(s): XR knee LT 4V Accession Number(s): [id number] cc: Cuco Amador; Name,Nitin PIKE Reason for [...] signed by Ash Sherman MD in OV> 09/18/258 DD/ 35 TD/TT: 09/18/251535 Credit Collections Manager: Procedure Note Donotuseinterpreter, Image - 09/18/[address] [address] XRay Report Signed Patient: Noreen WingMR#: [id number] : 1945cct:[id number] Age/Sex: 79 / FADM Date: 09/18/25 Loc: .ED Attending Dr: Ordering Physician: Cuco Amador Date of Service: 09/18/25 Procedure(s): XR knee LT 4V Accession Number(s): [id number] cc: Cuco Amador; Name,Nitin PIKE Reason for [...] signed by Ash Sherman MD in OV> 09/18/258 DD/ 35 TD/TT: 09/18/251535 Credit Collections Manager: [facility] External Provider IMG XR PROCEDURES Edited Result - Final * Glucose, Whole Blood (09/17/2025 7:24 AM EST) Glucose, Whole Blood 98 60 - 115 mg/dL [facility] Comment:METER #: [id number] 09/17/2025 7:24 AM EST 09/17/2025 7:28 AM EST Generic External Data Provider LAB BLOOD ORDERAB LES Final Result Performing Organization Address [facility] Co de Phone Number [facility] [address] [place] [phone] * POCT Urinalysis (09/06/2025 1:32 PM [...] Urine (Urine, Random) 09/06/2025 1:32 PM EDT Theaoswaldo Warren COPIER OPERATOR POINT OF CARE TEST ENTER/EDIT ORDERABLES Final Result * Magnesium (09/03/2025 2:08 PM EDT) Magnesium 2.0 1.6 - 2.6 mg/dL [facility] 09/03/2025 2:08 PM EDT 09/03/2025 2:12 PM EDT Generic External Data Provider LAB BLOOD ORDERAB LES Final Result Performing Organization Address [facility]/ZIP Co de Phone Number [facility] [address] [place] [phone] * POCT HGB A1C (01/10/2025 11:02 [...] LDL-C. Jack SS et al. JITENDRA. 2013;310(19): 8878-8485 (http://education.TurboTranslations.View Medical/faq/XXW408) Non-HDL Cholesterol 88 <130 mg/dL (calc) CONVERTED [...] Most Recently Relevant to Health Maintenance Insurance [id number] (HMO D-SNP) [place] [id number] Care Teams [employer] Nut Cro[employer] Farm Manager Relationship Specialty Start Date End Date Name, MD Nitin [address] [place], [place] [phone] PCP - General Family Medicine 08/26/17 [facility] 09/01/24
--- OUTSIDE RECORDS SUMMARY | 2025-11-01 00:44 | XMS_ITS | Encounter Summary ---
Author Organization [employer] Address [address] [facility] [address] [place] [address] Care Team Providers Care Oxyacetylene Burner Name Role Phone Name, Nitin PIKE Primary Care Provider [phone] Reason for Visit * Reason Onset Date Comments Call Back Request 03/14/2025 Encounter Details Date Type Department Care Team ([facility] st Contact Info) Description 03/14/2025 Telephone [facility] [address] [place], [place] [phone] Name, MD Nitin [address] [place] [address] Call Back Request Social History Tobacco Use [...] Description 11/07/2025 10:00 AM EST Office Visit [facility] [address] [place] [address] Name, MD Nitin [address] [place] [address] documented as of this encounter Visit Diagnoses Not on filedocumented in this encounter Additional Health Concerns Assessment Noted Time PHQ-9 Depression Total Score: 6 02/13/20 9:14 AM EDT documented as of this encounter Care Teams Oxyacetylene Burner Relationship Specialty Start Date End Date Name, MD Nitin [address] [place] [address] PCP - General Family Medicine 08/26/17 [facility] 09/01/24 documented as of this encounter
--- OUTSIDE RECORDS SUMMARY | 2025-11-01 00:44 | XMS_ITS | Encounter Summary ---
Author Organization [employer] Address [address] [facility] [address] [place] [address] Care Team Providers Care Creative Services Director Name Role Phone Name, Nitin PIKE Primary Care Provider [phone] Encounter Details Date Type Department Care Team (Late st Contact Info) Description 11/06/2022 Orders Only [facility] [address] [place], [place] [phone] Lisha Kelly LPN Social History Tobacco Use [...] 10:00 AM EST Office Visit [facility] [address] [place] [address] NameNitin MD [address] [place] [address] documented as of this encounter Visit Diagnoses Not on filedocumented in this encounter Care Teams Creative Services Director Relationship Specialty Start Date End Date Nitin Echevarria MD [address] [place] [address] PCP - General Family Medicine 08/26/17 [facility] 09/01/24 documented as of this encounter
--- OUTSIDE RECORDS SUMMARY | 2025-11-01 00:44 | XMS_ITS | Encounter Summary ---
Author Organization [employer] Address [address] [place] [address] Care Team Providers Care Tank Officer Name Role Phone Name, Nitin PIKE Primary Care Provider [phone] Reason for Visit * Reason Comments Med Refill Encounter Details Date Type Department Care Team ([facility] st Contact Info) Description 04/01/2024 Refill [facility] [address] [place], [place] [phone] Name, MD Nitin [address] [place] [address] Rash Social History Tobacco Use Types Packs/Day [...] EST Office Visit [facility] [address] [place] [address] NameNitin MD [address] [place] [address] documented as of this encounter Visit Diagnoses Diagnosis Rash Rash and other nonspecific skin eruption documented in this encounter Additional Health Concerns Assessment Noted Time PHQ-9 Depression Total Score: 6 02/13/20 24 9:14 AM EDT documented as of this encounter Care Teams Tank Officer Relationship Specialty Start Date End Date NameNitin MD [address] [place] [address] PCP - General Family Medicine 08/26/17 [facility] 09/01/24 documented as of this encounter
--- OUTSIDE RECORDS SUMMARY | 2025-11-01 00:44 | XMS_ITS | Encounter Summary ---
Author Organization [employer] Address [address] [facility] 7[address] [place] [address] Care Team Providers Care Remote Inpatient Coder Name Role Phone Name, Nitin PIKE Primary Care Provider [phone] Encounter Details Date Type Department Care Team ([facility] Contact Info) Description 08/08/2023 Telephone [facility] [address] [place] [address] [phone] Name, MD Nitin [address] [place] [address] [phone] Social History Tobacco Use Types Packs/Day Years [...] EST Office Visit [facility] [address] [place] [address] [phone] Name, MD Nitin [address] [place] [address] [phone] documented as of this encounter Visit Diagnoses Not on filedocumented in this encounter Additional Health Concerns Assessment Noted Time PHQ-9 Depression Total Score: 12 023 9:37 AM EDT documented as of this encounter Care Teams Remote Inpatient Coder Relationship Specialty Start Date End Date Name, MD Nitin 230 [place] [address] PCP - General Family Medicine 08/26/17 [facility] 09/01/24 documented as of this encounter
--- OUTSIDE RECORDS SUMMARY | 2025-11-01 00:44 | XMS_ITS | Encounter Summary ---
Author Organization [employer] Address [address] [facility] [address] [place] [address] Care Team Providers Care Humane Officer Name Role Phone Name, Nitin PIKE Primary Care Provider Reason for Visit * Reason Comments Med Refill Encounter Details Date Type Department Care Team (Late st Contact Info) Description 01/09/[address] [facility] 230 [place], [place] [phone] Name, MD Nitin 230 [place] [address] Hypertension, unspecified type Social History Tobacco Use [...] AM EST Office Visit [facility] [address] [place] [address] NameNitin MD [address] [place] [address] documented as of this encounter Visit Diagnoses Diagnosis Hypertension, unspecified type documented in this encounter Additional Health Concerns Assessment Noted Time PHQ-9 Depression Total Score: 6 02/13/20 9:14 AM EDT documented as of this encounter Care Teams Humane Officer Relationship Specialty Start Date End Date NameNitin MD [address] [place] [address] PCP - General Family Medicine 08/26/17 [facility] 09/01/24 documented as of this encounter
--- OUTSIDE RECORDS SUMMARY | 2025-11-01 00:44 | XMS_ITS | Encounter Summary ---
Author Organization [employer] Address [address] [facility] 7[address] [place] [address] Care Team Providers Care Fork Assembler Name Role Phone Name, Nitin PIKE Primary Care Provider [phone] Encounter Details Date Type Department Care Team ([facility] Contact Info) Description 12/17/2022 Orders Only [facility] [address] [place], [place] [phone] Lisha Kelly LPN Social History Tobacco Use [...] Description 11/07/2025 10:00 AM EST Office Visit [facility] 230 [place] [address] Nitin Echevarria MD 230 [place] [address] documented as of this encounter Visit Diagnoses Not on filedocumented in this encounter Care Teams Fork Assembler Relationship Specialty Start Date End Date NameNitin MD 230 [place] [address] PCP - General Family Medicine 08/26/17 [facility] 09/01/24 documented as of this encounter
--- OUTSIDE RECORDS SUMMARY | 2025-11-01 00:44 | XMS_ITS | Encounter Summary ---
Author Organization [employer] Address [address] [facility] [address] [place] [address] Care Team Providers Care Compliance Assistant Name Role Phone Name, Nitin PIKE Primary Care Provider [phone] Reason for Visit * Reason Comments Med Refill Encounter Details Date Type Department Care Team ([facility] st Contact Info) Description 06/28/2024 Refill [facility] 230 [place], [place] [phone] Mel Anguiano FNP 230 [place] [address] Social History Tobacco Use Types Packs/Day Years [...] 11/07/2025 10:00 AM EST Office Visit [facility] 230 [place] [address] Name, MD Nitin 230 [place] [address] documented as of this encounter Visit Diagnoses Not on filedocumented in this encounter Additional Health Concerns Assessment Noted Time PHQ-9 Depression Total Score: 6 02/13/20 24 9:14 AM EDT documented as of this encounter Care Teams Compliance Assistant Relationship Specialty Start Date End Date Name, MD Nitin [address] [place] [address] PCP - General Family Medicine 08/26/17 [facility] 09/01/24 documented as of this encounter
--- OUTSIDE RECORDS SUMMARY | 2025-11-01 00:44 | XMS_ITS | Clinical Summary ---
Author Organization [facility] Address [address] [address] Care Team Providers Care Top Spotter Name Role Phone Name, Nitin PIKE Primary Care Provider [phone] Allergies Active Allergy Reactions Criticality Noted Date [...] patient's age to complete this topic [place] [address] [place] [address] MCR ([id number]) SARA PHILLIPS [phone] [facility] MCR ([id number]) Care Teams Top Spotter Relationship Specialty Start Date End Date Name, MD Nitin [address] [place] [phone] PCP - General Internal Medicine 10/15/22
--- OUTSIDE RECORDS SUMMARY | 2025-11-01 00:44 | XMS_ITS | Data Portability ---
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 She called today because she insists on having the catheter removed. It was removed by the instrument technician apprentice with the understand ing that if she can't void, she will need to go the the ER. The patient agreed with this plan. [id number] Rohit Benton MD [facility] - [address] [address] 02/06/2024 15:33:16 02/09/2024 18:20:42 Chronic retention of urine [id number] R33.8 Has bunn catheter which was recently [...] Guarantor Name 02/09/2024 1 [facility] - DOS ON OR AFTER 2023 - DUAL ELIGIBLE - USP OPTIONS AND ONE CARE (MEDICARE REPLACEMENT/ADV ANTAGE - HMO) Noreen Wing [id number] Noreen Wing Notes Date Note Type Note Provider Name and Address Organization Details Recorded Time 01/31/2024 text/html ROS as noted in the HPI CRC Nurse Triage Notes (Joana Dominique): Reason For Request: Bunn catheter malfunction/painful Chief Complaints: UTI/Pyelonephritis, Equipment-Related Allergies: No Known Comments: Armenian speaking member who denies any PMH, denies [...] KAYE Verified name//address Epifanio Mcintyre MD [address] [facility],[address], [place], [address], [employer] 01/31/2024 19:05:57 02/06/2024 text/html ROS as noted in the HPI HPI: Member asked for HV tomorrow after 10 AM if possible. Treated at the [facility] today, for F/u leaking, stated is [...] son Jame Wing. Member is 78 y/o Armenian speaking female who [place] [address] [facility] with her son. Member has multiple [...] sees her BH counselor weekly and Prescriber [employer] [place] monthly if needed or every 2-3 months, .................... .................... .................... .................... .................... .................... .................... . [facility] Nurse Triage Notes (Zafar Irving): Comments: Reviewed HPI .................... .................... .................... .................... .................... .................... .................... . Mid Level Developer Note From [place]: Pt sts doesn [...] appt Friday. Pt son was used as real estate job titles. Pt education on signs indicating the ER. Mid Level Developer Allergies: Clindamycin .................... .................... .................... .................... .................... .................... .................... . Disposition: Fulfilled Rohit Benton MD [address] [facility], [place], [address], [employer] 02/06/2024 17:58:19 OBGyn Episode No OBEpisode recorded.
--- OUTSIDE RECORDS SUMMARY | 2025-11-01 00:44 | XMS_ITS | Encounter Summary ---
Author Organization [employer] Address [address] [facility] [address] [place] [address] Care Team Providers Care C D Area Supervisor Name Role Phone Name, Nitin PIKE Primary Care Provider [phone] Reason for Visit * Reason Comments Med Refill Encounter Details Date Type Department Care Team (Late st Contact Info) Description 07/25/2025 Refill [facility] [address] [place], [place] [phone] Name, MD Nitin 230 [place] [address] Social History Tobacco Use Types Packs/Day Years [...] 10:00 AM EST Office Visit [facility] [address] [place] [address] NameNitin MD [address] [place] [address] documented as of this encounter Visit Diagnoses Not on filedocumented in this encounter Additional Health Concerns Assessment Noted Time PHQ-9 Depression Total Score: 3 04/29/20 25 9:41 AM EDT documented as of this encounter Care Teams C D Area Supervisor Relationship Specialty Start Date End Date NameNitin MD [address] [place] [address] PCP - General Family Medicine 08/26/17 [facility] 09/01/24 documented as of this encounter
--- OUTSIDE RECORDS SUMMARY | 2025-11-01 00:45 | XMS_ITS | Encounter Summary ---
Author Organization [employer] Address 75 [facility] 7[address] [place] [address] Care Team Providers Care Armature Inspector Name Role Phone Name, Nitin PIKE Primary Care Provider [phone] Reason for Visit * Reason Onset Date Comments Verbal Orders 01/02/2024 Encounter Details Date Type Department Care Team ([facility] st Contact Info) Description 01/02/2024 Telephone [facility] 230 [place], [place] [phone] Name, MD Nitin 230 [place] [address] Verbal Orders Social History Tobacco Use Types [...] phone call. * Telephone Encounter - Melany aSntos RN - 01/06/2024 11:37 AM EST T/C to [facility] for below message from PCP, No answer. LVM to call back on [phone]. * Telephone Encounter - Melany Santos RN - 01/06/2024 10:25 AM EST Please review and advise for below request. * Telephone Encounter - Deana Bazzi - 01/02/2024 3:44 PM EST Tc from [facility] with S requesting verbal orders for discharge pt from Occupational Therapy, due to pt refuses services, please contact [facility] at [phone]. documented in this encounter Plan of Treatment Upcoming Encounters Date Type Department Care Team (Late st Contact Info) Description 11/07/2025 10:00 AM EST Office Visit [facility] [address] [place] [phone] Name, MD Nitin 230 [place] [address] documented as of this encounter Visit Diagnoses Not on filedocumented in this encounter Additional Health Concerns Assessment Noted Time PHQ-9 Depression Total Score: 12 023 9:37 AM EDT documented as of this encounter Care Teams Armature Inspector Relationship Specialty Start Date End Date Name, MD Nitin [address] [place] [address] PCP - General Family Medicine 08/26/17 [facility] 09/01/24 documented as of this encounter
--- OUTSIDE RECORDS SUMMARY | 2025-11-01 00:45 | XMS_ITS | Encounter Summary ---
Author Organization [employer] Address [address] [facility] 7[address] [place] [address] Care Team Providers Care Control Valve Technician Name Role Phone Name, Nitin PIKE Primary Care Provider [phone] Reason for Visit * Reason Comments Med Refill Encounter Details Date Type Department Care Team (Late Contact Info) Description 03/02/2023 Refill [facility] [address] [place] [address] Karely Patiño MD [address] [place] [address] [phone] Social History Tobacco Use Types Packs/Day Years [...] Office Visit [facility] [address] [place] [address] Name, MD Nitin [address] [place] [address] documented as of this encounter Visit Diagnoses Not on filedocumented in this encounter Care Teams Control Valve Technician Relationship Specialty Start Date End Date Name, MD Nitin 230 [place] [address] PCP - General Family Medicine 08/26/17 [facility] 09/01/24 documented as of this encounter
--- NOTE | 2025-11-01 01:00 | PC.NURSE ---
medicated per mar, reviewed discharge instructions with pt. pt verbalized understanding, pt wheeled out by family member.
[2025-11-01 01:04] VITALS: BP 155/79; PULSE 83; RESP 20; TEMP 36.7; O2SAT 99
[2025-11-01 01:05] VITALS: BP 155/79; PULSE 83; RESP 20; TEMP 36.7; O2SAT 99
== END 2025-11-01 01:06 | disposition home or self-care (01) ==
PROVIDERS: Emergency Provider Emergency Medicine
DX: F41.9 Anxiety disorder, unspecified (principal); R42 Dizziness and giddiness; I10 Essential (primary) hypertension
CPT/HCPCS: 99284

== ENCOUNTER 2025-11-01 03:40 | Emergency (ER) | payer OTHER, SELFPAY ==
[2025-11-01 03:42] VITALS: BP 141/76; PULSE 99; RESP 20; TEMP 36.9; O2SAT 96; BMI 27.4
--- NOTE | 2025-11-01 04:47 | PC.NURSE ---
pt returned to get anxiety medication. pt was just discharge from here.
--- NOTE | 2025-11-01 04:56 | ED.ANXIETY ---
HPI - Anxiety General Chief Complaint: Anxiety Stated Complaint: Anxiety Time Seen by Provider: 11/01/25 04:40 Source: patient Mode of arrival: ambulatory Limitations: no limitations History of Present Illness ED Provider: Dr. Marta Briscoe HPI narrative: Patient was discharged from the ED less than an hour ago. While patient was waiting for the right to pick her up, she became anxious. Patient checked in again to the ED, stating that although the hydroxyzine she got did help some, it is not as good as Klonopin. Patient requesting that we gave her a dose of Klonopin. Patient denies SI or HI Related Data Home Medications ?Medication ?Instructions ?Recorded ?Confirmed omeprazole 20 mg tablet,delayed 20 mg PO DAILY@0630 08/09/20 08/22/25 release aspirin 81 mg tablet,delayed 81 mg PO QAM 01/28/24 08/22/25 release bisacodyl 5 mg tablet,delayed 5 mg PO DAILY PRN constipation 01/28/24 08/22/25 release ferrous sulfate 325 mg (65 mg 325 mg PO DAILY 01/28/24 08/22/25 iron) tablet (FeroSul) melatonin 10 mg tablet,extended 10 mg PO BEDTIME PRN Insomnia 01/28/24 08/22/25 release multivitamin 1 tab PO QAM 01/28/24 08/22/25 rosuvastatin 20 mg tablet 20 mg PO BEDTIME 01/28/24 08/22/25 trazodone 50 mg tablet 50 mg PO BEDTIME 01/28/24 08/22/25 amlodipine 10 mg tablet 10 mg PO DAILY 02/09/24 08/22/25 acetaminophen 500 mg tablet 500 mg PO Q8H PRN pain 08/09/24 08/22/25 cholecalciferol (vitamin D3) 25 25 mcg PO DAILY 08/20/24 08/22/25 mcg (1,000 unit) tablet sertraline 100 mg tablet 100 mg PO DAILY 03/16/25 08/22/25 apixaban 5 mg tablet 5 mg PO BID 08/22/25 08/22/25 clonazepam 0.5 mg tablet 0.5 mg PO TID 08/22/25 08/22/25 fluticasone propionate 50 2 spray intranasal DAILY PRN 08/22/25 08/22/25 mcg/actuation nasal Allergic Symptoms spray,suspension (Flonase Allergy Relief) hydroxyzine HCl 25 mg tablet 10 mg PO DAILY PRN anxiety 08/22/25 08/22/25 ketotifen fumarate 0.025 % (0.035 1 drp ophthalmic (eye) BID PRN 08/22/25 08/22/25 %) eye drops allergies mirtazapine 45 mg tablet 45 mg PO BEDTIME 08/22/25 08/22/25 valsartan 160 mg tablet 160 mg PO QPM 08/22/25 08/22/25 Previous Rx's ?Medication ?Instructions ?Recorded metoprolol succinate 50 mg 50 mg PO DAILY #90 tabs 09/28/20 tablet,extended release 24 hr docusate sodium 100 mg capsule 200 mg (2 x 100 mg) PO BID #20 caps 02/24/25 (Colace) ibuprofen 200 mg tablet 200 mg PO Q6H PRN pain #20 tabs 07/24/25 meclizine 12.5 mg tablet 12.5 mg PO TID PRN dizziness or 07/26/25 vertigo #30 tabs meclizine 25 mg tablet 25 mg PO BID PRN dizziness #14 tabs 09/22/25 meclizine 25 mg tablet 25 mg PO BID PRN dizziness #14 tabs 10/10/25 meclizine 25 mg tablet 25 mg PO BID PRN dizziness #14 tabs 11/01/25 Allergies Allergy/AdvReac Type Severity Reaction Status Date / Time penicillin G (Penicillin G) Allergy Severe ITCHY/RASH Verified 11/01/25 03:43 Sulfa (Sulfonamide Allergy Severe ITCHY,RASH, Verified 11/01/25 03:43 Antibiotics) (Sulfa rash (Sulfonamides)) trimethoprim (From Bactrim) Allergy Severe HIVES Verified 11/01/25 03:43 Penicillins Allergy Intermediate Hives Verified 11/01/25 03:43 sulfamethoxazole (From Allergy Mild Hives Verified 11/01/25 03:43 Bactrim) Review of Systems Review of Systems: Constitutional : No Weight loss, No Fever, No Chills, No Night Sweats, No Fatigue, No Malaise ENT/Mouth : No Hearing loss, No Ear Pain, No Nasal Congestion, No Sinus Pain, No Hoarseness, No sore throat, No Rhinorrhea, No Swallowing Difficulty Eyes: No Eye Pain, No Swelling, No Redness, No Foreign Body, No Discharge, No Vision Changes Cardiovascular : No Chest Pain, No SOB, No Dyspnea on Exertion, No Orthopnea, No Edema, No Palpitations Respiratory : No Cough, No Sputum, No Wheezing, No Smoke Exposure, No Dyspnea Gastrointestinal : No Nausea, No Vomiting, No Diarrhea, No Constipation, No abdominal Pain, No Hematochezia, No Melena Genitourinary : no irregular bleeding, No Dysuria, No Urinary Frequency, No Hematuria, No Urinary Incontinence, No Urgency, No Flank Pain, No Urinary Flow Changes, No Hesitancy Musculoskeletal : No joint pain, No Myalgias, No Joint Swelling Skin : No Skin Lesions, No rash Neuro : No Weakness, No Numbness, No Paresthesias, No Loss of Consciousness, No Dizziness, No Headache Psych : Complaining of anxiety, requesting Klonopin. No Depression, No SI/HI/AH/VH, No Social Issues, Heme/Lymph: No Bruising, No Bleeding,No Lymphadenopathy Endocrine : No Polyuria, No Polydipsia, No Temperature Intolerance [facility] Past Medical History 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 or 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 (acid cutter) Alcohol intake: never Patient Tobacco Use Status: Never used Tobacco Smoked in Last 30 Days: No Use of substances other than those prescribed or required for medical reasons: No Advance Directives: Yes Advance Directives on File: Yes Advance Directives Date on File: 01/28/24 service: No Physical Exam Exam: Exam: Appearance: Alert. Oriented X3. No acute distress. Eyes: Pupils equal, round and reactive to light. ENT: Pharynx normal. Neck: Normal inspection. Neck supple. No lymph nodes noted. No crepitus CVS: Normal heart rate and rhythm. Pulses normal. Normal S1 and S2 Respiratory: No respiratory distress. Breath sounds normal. No Wheezing. No rales Abdomen: Soft and nontender. No rigidity. No distention. Skin: Skin warm and dry. Normal skin color. Normal skin turgor. Extremities: No lower extremity edema. No Lacerations. No Rash Neuro: Oriented X 3. No motor deficit. No sensory deficit. Moving all extremities. No slurred speech. CN 2 through 12 grossly intact Psych: calm, cooperative, normal affect Vital Signs: Vital Signs: Last Vital Signs Temp 98.4 F 11/01/25 03:42 Pulse 99 11/01/25 03:42 Resp 20 11/01/25 03:42 BP 141/76 H 11/01/25 03:42 Pulse Ox 96 11/01/25 03:42 O2 Del Method Room Air 11/01/25 03:42 BMI result Body Mass Index 27.4 Medical Decision Making Medical Decision Making MDM Narrative: Patient very well known to the ED. Frequently request at 1 time dose of benzodiazepines. There has been a plan set up for the patient. Inappropriate to keep dosing of the patient with 1 time dose of benzos. Patient states that she will get her medications later today. Patient states that she feels otherwise well, walking with a cane at baseline. Patient states that she respects our decision of not giving her benzodiazepines in the ED. Patient states that she is ready to be discharged Discharge Plan Discharge Clinical Impression: Anxiety, Acute anxiety Patient Disposition: Home, Self-Care Instructions: Anxiety (ED) Additional Instructions: Please follow-up with your primary care physician tomorrow. If you have any worsening or new symptoms, please return to the emergency room or call 911 Prescriptions: No Action metoprolol succinate 50 mg tablet extended release 24 hr 50 mg PO DAILY Qty: 90 2RF omeprazole 20 mg Tablet,Delayed Release (Dr/Ec) 20 mg PO DAILY@0630 meclizine 12.5 mg tablet 12.5 mg PO TID PRN (Reason: dizziness or vertigo) Qty: 30 0RF meclizine 25 mg tablet 25 mg PO BID PRN (Reason: dizziness) Qty: 14 0RF meclizine 25 mg tablet 25 mg PO BID PRN (Reason: dizziness) Qty: 14 0RF trazodone 50 mg tablet 50 mg PO BEDTIME ferrous sulfate [FeroSul] 325 mg (65 mg iron) tablet 325 mg PO DAILY bisacodyl 5 mg tablet,delayed release (DR/EC) 5 mg PO DAILY PRN (Reason: constipation) rosuvastatin 20 mg tablet 20 mg PO BEDTIME aspirin 81 mg tablet,delayed release (DR/EC) 81 mg PO QAM multivitamin Tablet 1 tab PO QAM melatonin 10 mg tablet extended release 10 mg PO BEDTIME PRN (Reason: Insomnia) cholecalciferol (vitamin D3) 25 mcg (1,000 unit) tablet 25 mcg PO DAILY acetaminophen 500 mg tablet 500 mg PO Q8H PRN (Reason: pain) docusate sodium [Colace] 100 mg capsule 200 mg PO BID Qty: 20 0RF ibuprofen 200 mg tablet 200 mg PO Q6H PRN (Reason: pain) Qty: 20 0RF ketotifen fumarate 0.025 % (0.035 %) drops 1 drp ophthalmic (eye) BID PRN (Reason: allergies) mirtazapine 45 mg tablet 45 mg PO BEDTIME clonazepam 0.5 mg tablet 0.5 mg PO TID hydroxyzine HCl 25 mg tablet 10 mg PO DAILY PRN (Reason: anxiety) fluticasone propionate [Flonase Allergy Relief] 50 mcg/actuation spray,suspension 2 spray intranasal DAILY PRN (Reason: Allergic Symptoms) Rx Instructions: administer into each nostril apixaban 5 mg tablet 5 mg PO BID valsartan 160 mg tablet 160 mg PO QPM meclizine 25 mg tablet 25 mg PO BID PRN (Reason: dizziness) Qty: 14 0RF sertraline 100 mg tablet 100 mg PO DAILY amlodipine 10 mg tablet 10 mg PO DAILY Print Language: Belarusian
--- NOTE | 2025-11-01 05:14 | PC.NURSE ---
reviewed discharge instructions with pt. pt verbalized understanding, pt walked out to lobby by this RN. no sign of distress.
[2025-11-01 05:15] VITALS: BP 141/76; PULSE 99; RESP 20; TEMP 36.9; O2SAT 96
== END 2025-11-01 05:16 | disposition home or self-care (01) ==
PROVIDERS: Emergency Provider Emergency Medicine; PCP Dentist General Practice
DX: F41.9 Anxiety disorder, unspecified (principal); R42 Dizziness and giddiness; I10 Essential (primary) hypertension
CPT/HCPCS: 99283; 99284

== ENCOUNTER 2025-11-03 22:32 | Emergency (ER) | payer OTHER, SELFPAY ==
[2025-11-03 22:38] VITALS: BP 152/80; PULSE 95; O2SAT 96
[2025-11-03 23:04] VITALS: BP 126/70; PULSE 96; RESP 18; TEMP 36.6; O2SAT 98; BMI 29.0
--- OUTSIDE RECORDS SUMMARY | 2025-11-04 01:51 | XMS_ITS | Clinical Summary ---
Author Organization [facility] Address [address] [place] [address] Phone Care Team Providers Care Corrugator Name Role Phone Physician, No Pcp Primary [...] 09/22/2024 3:15 AM EST [facility] Potassium 4.6 3.5 - [...] LAB CHEMISTRY METHOD 09/22/2024 3:15 AM EST [facility] Albumin 4.2 3.2 - 5.0 g/dL LAB CHEMISTRY METHOD 09/22/2024 3:15 AM EST [facility] Total Bilirubin 0.4 0.0 - 1.4 mg/dL LAB CHEMISTRY METHOD 09/22/2024 3:15 AM EST [facility] Blood Venous blood specimen / Unknown Venipuncture / Unknown 09/22/2024 2:28 AM EST 09/22/2024 2:31 AM EST us Paul RUIZ LAB BLOOD ORDERABLES Final Resul t [facility] [address] [place] [address], from Last 3 Months or Most Recently Relevant to Health Maintenance Insurance [facility] Member Subscriber Plan / Payer (Ef fective 2021-Present) Name:Noreen Wing Relation to Subscriber:Self Name:Noreen Wing Payer ID:[id number] Group ID:[id number] Type:Not on file Address: [address] [phone] Care Teams Corrugator Relationship Specialty Start Date End Date Physician, No Pcp PCP - General 09/22/24
--- OUTSIDE RECORDS SUMMARY | 2025-11-04 01:51 | XMS_ITS | Encounter Summary ---
Author Organization [employer] Address [address] [facility] [address] [place] [address] Care Team Providers Care Explosive Ordnance Disposal Technician Name Role Phone Name, Nitin PIKE Primary Care Provider [phone] Reason for Visit * Reason Onset Date Comments Order(s) 12/09/2023 Encounter Details Date Type Department Care Team ([facility] Contact Info) Description 12/09/2023 Telephone [facility] [address] [place], [place] [phone] Name, MD Nitin [address] [place], [place] [phone] Order(s) Social History Tobacco Use Types Packs/Day [...] orders. If any questions please contact Noreen [phone]. documented in this encounter Plan of Treatment Upcoming Encounters Date Type Department Care Team (Late st Contact Info) Description 11/07/2025 10:00 AM EST Office Visit [facility] [address] [place] [address] Name, MD Nitin [address] [place] [address] documented as of this encounter Visit Diagnoses Not on filedocumented in this encounter Additional Health Concerns Assessment Noted Time PHQ-9 Depression Total Score: 12 023 9:37 AM EDT documented as of this encounter Care Teams Explosive Ordnance Disposal Technician Relationship Specialty Start Date End Date Name, MD Nitin [address] [place] [address] PCP - General Family Medicine 08/26/17 [facility] 09/01/24 documented as of this encounter
--- OUTSIDE RECORDS SUMMARY | 2025-11-04 01:51 | XMS_ITS | Encounter Summary ---
Author Organization [employer] Address [address] [facility] [address] [place] [address] Care Team Providers Care Studio Operator Name Role Phone Name, Nitin PIKE Primary Care Provider [phone] Reason for Visit * Reason Comments Med Refill Encounter Details Date Type Department Care Team (Late st Contact Info) Description 04/20/2025 Refill [facility] [address] [place] [address] Zechariah Cheung MD [address] [place] [address] Allergic rhinitis, unspecified seasonality, unspecified trigger Social [...] Visit [facility] [address] [place] [address] NameNitin MD [address] [place] [address] documented as of this encounter Visit Diagnoses Diagnosis Allergic rhinitis, unspecified seasonality, unspecified trigger documented in this encounter Additional Health Concerns Assessment Noted Time PHQ-9 Depression Total Score: 6 02/13/20 9:14 AM EDT documented as of this encounter Care Teams Studio Operator Relationship Specialty Start Date End Date Nitin Echevarria MD [address] [place] [address] PCP - General Family Medicine 08/26/17 [facility] 09/01/24 documented as of this encounter
--- OUTSIDE RECORDS SUMMARY | 2025-11-04 01:51 | XMS_ITS | Clinical Summary ---
Author Organization [employer] Address [address] [place] [address] [address] [place] [address] Care Team Providers Care Creative/Art Director Name Role Phone Name, Nitin PIKE Primary Care Provider [phone] Allergies Active Allergy Reactions Criticality Noted Date [...] MOUTH EVERY 8 HOURS NEEDED FOR PAIN (IRISH LABEL) 90 tablet 025 Active omeprazole (PriLOSEC) [address] capsuleIndication s:Heartburn TAKE 1 CAPSULE BY MOUTH EVERY MORNING 1 HOUR BEFORE BREAKFAST 90 capsule 1 025 Active rosuvastatin (Crestor) 20 MG tablet Take 1 tablet (20 mg) by mouth at bedtime. 90 tablet 3 025 Active Multiple Vitamin (Multivitamin) tablet Take 1 tablet by mouth in the morning. 90 tablet 3 11/01/20 25 8:15 AM EST 025 Active docusate sodium (Colace) 100 MG [...] MORNING AND IN THE EVENING 60 tablet 11/01/20 25 8:15 AM EST 025 Active Bisacodyl EC 5 MG EC [...] EST 2024 Diclofenac Sodium 1 % gelIndications:Ac nondalton right-sided low back pain without sciatica Apply [...] EST): Symptomatic measures Rest Major neurocognitive disorder ([facility]) 11/02/20 Acute otitis media 04/22/2024 Diarrhea 02/12/2024 [...] precautions advised Stage 3a chronic kidney disease ([facility]) 2022 Headache 01/02/2023 Overview (12/18/2023): Last Assessment [...] because it calms her down. I called [facility] pharmacy to attempt a [...] left I received a call from the [facility] pharmacy instructing me that [...] Type Department Care Team Description 10/20/2025 Refill [facility] MED[facility] [address] [place] [address] Name, MD Nitin 10/19/2025 Refill [facility] [address] [place] [address] Name, MD Nitin Chronic constipation; Vitamin D deficiency 10/03/2025 Orders Only GENERIC EXTERNAL DATA DEPARTMENT Provider, Generic External Data 09/29/2025 8:40 AM EST Office Visit [facility] [address] [place] [address] Zach Javier MD Acute right-sided low back pain without sciatica (Primary Dx); Vertigo 09/29/2025 Travel 09/28/2025 Refill [facility] [address] [place] [address] Nitin Echevarria MD Vitamin D deficiency 09/27/2025 Refill [facility] [address] [place] [address] Nitin Echevarria MD 09/22/[address] [address] Nitin Echevarria MD Nurse Triage 09/22/2025 Orders Only GENERIC EXTERNAL DATA DEPARTMENT Provider, Generic External Data 09/21/[address] [address] Nitin Echevarria MD Request For Order(s); Referral 09/19/2025 Refill [facility] [address] [place] [address] Nitin Echevarria MD 09/19/2025 Orders Only GENERIC EXTERNAL DATA DEPARTMENT Provider, Generic External Data 09/18/2025 Orders Only [facility] External Provider, [facility] 09/17/2025 Orders Only GENERIC EXTERNAL DATA DEPARTMENT Provider, Generic External Data 09/09/[address] [address] Thea Warren FNP Results 09/06/2025 1:30 PM EDT Office Visit [address] [address] Thea Warren FNP Acute pain of left knee (Primary Dx); Urinary frequency; Acute cystitis without hematuria 09/06/2025 Orders Only [address] [address] Thea Warren FNP 09/06/2025 Travel 09/05/[address] [address] Nitin Echevarria MD Chart Prep 09/03/2025 Orders Only GENERIC EXTERNAL DATA DEPARTMENT Provider, Generic External Data 08/30/2025 Patient Outreach [facility] [address] [place] [address] Nitin Echevarria MD Pre-visit Planning ([facility] unable to reach) 08/24/2025 Telephone [facility] MEDICINE [address] [place] [address] Nitin Echevarria MD Referral 08/24/2025 Telephone [facility] [address] [place] [address] Nitin Echevarria MD Verbal Order 08/22/2025 Orders Only [facility] External Provider, [facility] 08/18/2025 Orders Only GENERIC EXTERNAL DATA DEPARTMENT Provider, Generic External Data 08/17/2025 Refill [facility] [address] [place] [address] Nitin Echevarria MD 08/17/2025 Refill [facility] [address] [place] [address] Miryam Riley NP Hypertension, unspecified type 08/15/2025 Refill [facility] [address] [place] [address] Nitin Echevarria MD Heartburn 08/14/2025 Refill [facility] [address] [place] [address] Nitin Echevarria MD Heartburn; Vitamin D deficiency 08/09/2025 11:15 AM EDT Office Visit [facility] [address] [place] [address] Nitin Echevarria MD Generalized anxiety disorder with [...] [facility] [address] [place] [address] Name, MD Nitin [address] [place] [address] Health Maintenance Due Date Last Done Comments [...] time period is included. Color Urine Yellow [facility] Appearance Urine Clear [facility] PH 6.0 5.0 - 9.0 [facility] Glucose Urine UA Negative Negative mg/dL [facility] Urine Blood Negative Negative [facility] Specific [place] - Urine 1.015 1.005 - 1.025 [facility] Urine Protein Negative Neg-Trace mg/dL [facility] Urine Ketones Negative Negative mg/dL [facility] Nitrite Urine Negative Negative [facility] Leukocyte Esterase Urine Moderate (2+)(A) Negative [facility] RBC Urine 0-2 0 - 2 /HPF [facility] Urine WBC 11-20(A) 0 - 5 /HPF [facility] Urine Squamous Epithelial Cell 0-2 0 - 2 /HPF [facility] Urine Bacteria None Seen None Seen [facility] Hyaline Casts, Urine 0-2 0 - 2 /LPF [facility] 10/03/2025 11:1 8 PM EST 10/03/2025 11:21 PM EST Narrative [facility] - 10/03/2025 11:29 PM EST [id number], Clean Catch Generic External Data Provider LAB URINE ORDERAB LES Final Result Performing Organization Address [facility] Co de Phone Number [facility] [address] [place] [phone] * Culture, Urine, Routine (10/03/2025 12:00 AM EST) Only the most recent of3 resultswithin the time period is included. Urine Urine specimen obtained by clean catch procedure / Unknown 10/03/2025 10/03/2025 Comment:UACC Narrative [facility] - 10/05/2025 11:28 AM EST Urine Culture Report Result Urine Culture 10,000 to 50,000 cfu/ml Urine Culture Mixed bacterial jann characteristic of Urine Culture urogenital contamination. Specimen Source: Urine clean catch Generic External Data Provider LAB MICROBIOLOGY - GENERAL ORDERABLES Final Result Performing Organization Address [facility] Co de Phone Number [facility] [address] [place] [phone] * (ABNORMAL) CBC auto differential (09/22/2025 7:21 AM EST) Only the most recent of3 resultswithin the time period is included. White Blood Count 6.6 4.8 - 10.8 X10*3/uL [facility] Red Blood Count 4.39 4.20 - 5.50 X10*6/uL [facility] Hemoglobin 12.2 12.0 - 16.0 g/dl [facility] Hematocrit 37.3 37.0 - 47.0 % [facility] Mean Corpuscular Volume 85.0 80.0 - 98.0 fL [facility] Mean Corpuscular Hemoglobin 27.8 27.0 - 33.0 pg [facility] Mean Corpuscular HGB Conc 32.7 31.0 - 35.0 g/dl [facility] Red Cell Distribution Width 13.8 11.0 - 16.0 % [facility] Platelet Count 295 160 - 400 X10*3/uL [facility] Mean Platelet Volume 8.1(L) 9.4 - 12.3 fL [facility] Neutrophils Percent Auto 70.6 45 - 73 % [facility] Imm Gran Pct Auto 0.5(H) 0.0 - 0.4 % [facility] Lymphocytes Percent Auto 18.3(L) 20 - 40 % [facility] Monocytes Percent Auto 9.4 2 - 11 % [facility] Eosinophils Percent Auto 0.6 0 - 4 % [facility] Basophils Percent Auto 0.6 0 - 2 % [facility] NRBC Pct Auto 0.0 0.0 - 0.2 /100WBC [facility] Neutrophils Absolute Auto 4.7 2.0 - 8.3 x10*3/uL [facility] Imm Gran Abs Auto 0.03 0.00 - 0.03 X10*3/uL [facility] Lymphocytes Absolute Auto 1.2 1.2 - 4.9 X10*3/uL [facility] Monocytes Absolute Auto 0.6 0.1 - 1.2 X10*3/uL [facility] Eosinophils Absolute Auto 0.0 0.0 - 0.4 X10*3/uL [facility] Basophils Absolute Auto 0.0 0.0 - 0.2 X10*3/uL [facility] NRBC Abs Auto 0.000 0.0 - 0.012 X10*3/uL [facility] 09/22/2025 7:21 AM EST 09/22/2025 7:23 AM EST us Generic External Data Provider LAB BLOOD ORDERAB LES Final Result [facility] [address] [place] [address] [phone] * (ABNORMAL) Basic Metabolic Panel (09/22/2025 7:21 AM EST) Only the most recent of2 resultswithin the time period is included. Sodium 137 135 - 145 mmol/L [facility] Potassium 4.7 3.3 - 5.1 mmol/L [facility] Chloride 100 96 - 108 mmol/L [facility] Carbon Dioxide 29 22 - 29 mmol/L [facility] Anion Gap 13 12 - 20 [facility] Urea Nitrogen (BUN) 18(H) 9 - 16 mg/dL [facility] Creatinine, Serum 0.85 0.5 - 1.4 mg/dL [facility] Creatinine Clr Calc Pharmacy 56.1 [facility] Comment:Provided height and weight: 162.56 cm,89.3 kg.eGFR (calculated from the MDRD study equation) and eCrCl(calculated from the Cockcroft-Gault equation) are based ondifferent parameters and may not yield comparable results.If eCrCl result is absurd, please check patient'sheight/weight. Estimated Glomerular Filt Rate >60 [facility] Comment:Chronic Kidney Disea se: Estimated GFR < 60 mL/min/1.24l5Wouuzh Kidney Disease: Estimated GFR < 15 mL/min/1.73m2 Glucose 105 60 - 115 mg/dL [facility] Calcium 10.0 8.4 - 10.2 mg/dL [facility] 09/22/2025 7:21 AM EST 09/22/2025 7:23 AM EST us Generic External Data Provider LAB BLOOD ORDERAB LES Final Result [facility] [address] [place] [address] [phone] * CT Head w/o Contrast (09/19/2025 3:43 AM EST) Only the most recent of2 resultswithin the time period is included. Anatomical Region Laterality Modality Head, Neck Computed Tomogra phy 09/19/2025 3:43 AM EST Narrative 09/19/2025 3:45 AM EST [address] [address] [address] Scan Report Signed Patient: Noreen Wing MR#: [id number] : 1945 Acct:[id number] Age/Sex: 79 / F ADM Date: 09/18/25 Loc: HO.ED Attending Dr: Ordering Physician: Marium Ny DO Date of Service: 09/19/25 Procedure(s): CT head/brain wo IV con Accession Number(s): [id number] cc: Marium Ny DO; [facility] Report Number: [id number]: Total DLP = 747.02 mGy-cm Reason for Exam: head trauma CLINICAL HISTORY: head trauma CT head without contrast Comparison: CT/REG/SR - CT HEAD/BRAIN WO IV CON - 09/03/25 13:35 EDT Findings: There is no acute intracranial hemorrhage. Ventricles are within normal limits in size. No mass effect or midline shift is present. The lmeons-white matter differentiation appears normal. There is partial [...] in OV> 09/19/25343 DD/ 2 TD/TT: 09/19/25342 Furniture Technician: Procedure Note Donotuseinterpreter, Image - 09/19/[address] [address] [address] Scan Report Signed Patient: Noreen WingMR#: [id number] : 1945cct:[id number] Age/Sex: 79 / FADM Date: 09/18/25 Loc: HO.ED Attending Dr: Ordering Physician: Marium Ny DO Date of Service: 09/19/25 Procedure(s): CT head/brain wo IV con Accession Number(s): [id number] cc: Marium Ny DO; [facility] Report Number: [id number]: Total DLP = 747.02 mGy-cm Reason for [...] in OV> 09/19/25343 DD/ 2 TD/TT: 09/19/25342 Furniture Technician: [facility] External Provider IMG CT PROCEDURES Edited Result - Final * CT Cervical Spine w/o Contrast (09/19/2025 3:42 AM EST) Only the most recent of2 resultswithin the time period is included. Anatomical Region Laterality Modality Spine, C-spine Computed Tomogra phy 09/19/2025 3:42 AM EST Narrative 09/19/2025 3:43 AM EST [address] [address] [address] Scan Report Signed Patient: Noreen Wing MR#: [id number] : 1945 Acct:[id number] Age/Sex: 79 / F ADM Date: 09/18/25 Loc: HO.ED Attending Dr: Ordering Physician: Marium Ny DO Date of Service: 09/19/25 Procedure(s): CT cervical spine wo IV con Accession Number(s): [id number] cc: Marium Ny DO; [facility] Report Number: [id number]: Total DLP = 428.77 mGy-cm Reason for Exam: fall, head trauma CLINICAL HISTORY: fall, head trauma CT cervical spine without contrast Comparison: CT/SR - CT CERVICAL SPINE WO IV CON - 09/03/25 13:35 EDT Findings: The alignment of the cervical spine is normal. There is no fracture. There is vxua-hg-swaxepwn C5-6 degenerative disc disease. There are posterior osteophytes at C5-6 probably causing ssla-ia-drsdwbaf central canal stenosis. There is multilevel facet [...] in OV> 09/19/25341 DD/ 1 TD/TT: 09/19/25341 Furniture Technician: Procedure Note Donotuseinterpreter, Image - 09/19/[address] [place] [address] [address] Scan Report Signed Patient: Noreen WingMR#: [id number] : 1945cct:[id number] Age/Sex: 79 / FADM Date: 09/18/25 Loc: HO.ED Attending Dr: Ordering Physician: Marium Ny DO Date of Service: 09/19/25 Procedure(s): CT cervical spine wo IV con Accession Number(s): [id number] cc: Marium Ny DO; [facility] Report Number: [id number]: Total DLP = 428.77 mGy-cm Reason for Exam: fall, head trauma CLINICAL HISTORY: fall, head trauma CT cervical spine without contrast Comparison: CT/SR - CT CERVICAL SPINE WO IV CON - 09/03/25 13:35 EDT Findings: The alignment of the cervical spine is normal. There is no fracture. There is raix-bw-xmwqompj C5-6 degenerative disc disease. There are posterior osteophytes at C5-6 probably causing pzez-ue-ztvigwyi central canal stenosis. There is multilevel facet [...] in OV> 09/19/25341 DD/ 1 TD/TT: 09/19/25341 Furniture Technician: [facility] External Provider IMG CT PROCEDURES Edited Result - Final * High Sensitivity Troponin I (09/19/2025 12:26 AM EST) Only the most recent of2 resultswithin the time period is included. TROPONIN I HIGH SENSITIVITY <2.7 <3.5 - 17.0 ng/L [facility] Comment:The Mckeon high sens itivity Troponin-I results should beused in conjunction with other diagnostic information suchas ECG, clinical observations and information, and patientsymptoms to aid in the diagnosis of CO. 09/19/2025 12:2 6 AM EST 09/19/2025 12:28 AM EST Generic External Data Provider LAB BLOOD ORDERAB LES Final Result [facility] [address] [place] [address] [phone] * Prothrombin Time-INR (09/19/2025 12:26 AM EST) Prothrombin Time 12.5 11.2 - 13.5 SEC [facility] INTERNATIONAL NORM RATIO 1.0 0.9 - 1.1 [facility] Comment:INTERNATIONAL NORMAL IZED RATIO (INR) [...] Provider LAB BLOOD ORDERAB LES Final Result [facility] [address] [place] [phone] * (ABNORMAL) Comprehensive Metabolic Panel (09/19/2025 12:26 AM EST) Only the most recent of2 resultswithin the time period is included. Sodium 136 135 - 145 mmol/L [facility] Potassium 4.1 3.3 - 5.1 mmol/L [facility] Chloride 101 96 - 108 mmol/L [facility] Carbon Dioxide 25 22 - 29 mmol/L [facility] Anion Gap 14 12 - 20 [facility] Urea Nitrogen (BUN) 33(H) 9 - 16 mg/dL [facility] Creatinine, Serum 0.99 0.5 - 1.4 mg/dL [facility] Creatinine Clr Calc Pharmacy 45.4 [facility] Comment:Provided height and weight: 157.48 cm,86.183 kg.eGFR (calculated from the MDRD study equation) and eCrCl(calculated from the Cockcroft-Gault equation) are based ondifferent parameters and may not yield comparable results.If eCrCl result is absurd, please check patient'sheight/weight. Estimated Glomerular Filt Rate 54 [facility] Comment:Chronic Kidney Disea se: Estimated GFR < 60 mL/min/1.63v2Amnzbe Kidney Disease: Estimated GFR < 15 mL/min/1.73m2 Glucose 108 60 - 115 mg/dL [facility] Calcium 8.9 8.4 - 10.2 mg/dL [facility] Bilirubin, Total 0.3 0.0 - 1.0 mg/dL [facility] Aspartate Amino Transferase 26 5 - 31 U/L [facility] Alanine Aminotransferase 14 0 - 31 U/L [facility] Total Protein 7.6 6.5 - 8.0 g/dL [facility] Albumin Level 4.1 3.5 - 5.0 g/dL [facility] Alkaline Phosphatase 92 39 - 117 U/L [facility] 09/19/2025 12:2 6 AM EST 09/19/2025 12:28 AM EST us Generic External Data Provider LAB BLOOD ORDERAB LES Final Result Performing Organization Address City/State/[facility] de Phone Number [facility] [address] [place] [phone] * XR Knee 4+ Views Left (09/18/2025 3:36 PM EST) Only the most recent of2 resultswithin the time period is included. Anatomical Region Laterality Modality Lower Extremities, Knee Left Radiogra phic Imaging 09/18/2025 3:36 PM EST Narrative 09/18/2025 3:39 PM EST [address] [address] XRay Report Signed Patient: Noreen Wing MR#: [id number] : 1945 Acct:[id number] Age/Sex: 79 / F ADM Date: 09/18/25 Loc: HO.ED Attending Dr: Ordering Physician: Cuco Amador Date of Service: 09/18/25 Procedure(s): XR knee LT 4V Accession Number(s): [id number] cc: Cuco Amador; Name,Nitin PIKE Reason for [...] in OV> 09/18/258 DD/ 35 TD/TT: 09/18/251535 Furniture Technician: Procedure Note Donotuseinterpreter, Image - 09/18/[address] [address] XRay Report Signed Patient: Noreen WingMR#: [id number] : 3Acct:[id number] Age/Sex: 79 / FADM Date: 09/18/25 Loc: .ED Attending Dr: Ordering Physician: Cuco Amador Date of Service: 09/18/25 Procedure(s): XR knee LT 4V Accession Number(s): [id number] cc: Cuco Amador; Name,Nitin PIKE Reason for [...] in OV> 09/18/258 DD/ 35 TD/TT: 09/18/251535 Furniture Technician: [facility] External Provider IMG XR PROCEDURES Edited Result - Final * Glucose, Whole Blood (09/17/2025 7:24 AM EST) Glucose, Whole Blood 98 60 - 115 mg/dL [facility] Comment:METER #: [id number] 09/17/2025 7:24 AM EST 09/17/2025 7:28 AM EST Generic External Data Provider LAB BLOOD ORDERAB LES Final Result Performing Organization Address [facility]/ZIP Co de Phone Number [facility] [address] [place] [phone] * POCT Urinalysis (09/06/2025 1:32 PM [...] Random) 09/06/2025 1:32 PM EDT Thea Warren [employer] POINT OF CARE TEST ENTER/EDIT ORDERABLES Final Result * Magnesium (09/03/2025 2:08 PM EDT) Magnesium 2.0 1.6 - 2.6 mg/dL [facility] 09/03/2025 2:08 PM EDT 09/03/2025 2:12 PM EDT us Generic External Data Provider LAB BLOOD ORDERAB LES Final Result Performing Organization Address [facility]/ZIP Co de Phone Number [facility] [address] [place] [phone] * POCT HGB A1C (01/10/2025 11:02 AM EST) Hemoglobin A1C 5.1 4.0 - 6.0 % QC Media Lot # [id number] Lot# Expiration Date ,077,438 Blood 01/10/2025 11:0 2 AM EST Nitin [...] LDL-C. Jack RAYO et al. JITENDRA. 2013;310(19): 0917-4602 (http://education.Entrenarme.get2play/faq/HLF682) Non-HDL Cholesterol 88 <130 mg/dL (calc) CONVERTED [...] Most Recently Relevant to Health Maintenance Insurance [employer] (HMO D-SNP) [place] [phone] Care Teams Creative/Art Director Relationship Specialty Start Date End Date Name, MD Nitin [address] [place] [address] PCP - General Family Medicine 08/26/17 [facility] 09/01/24
--- OUTSIDE RECORDS SUMMARY | 2025-11-04 01:51 | XMS_ITS | Encounter Summary ---
Author Organization [employer] Address 75 [facility] 7t [place] [address] Care Team Providers Care Teenage Babysitter Name Role Phone Name, Nitin PIKE Primary Care Provider [phone] Reason for Visit * Reason Comments Med Refill Encounter Details Date Type Department Care Team (Late st Contact Info) Description 07/25/2025 Refill [facility] MED & PEDS [address] [place], [place] [phone] Name, MD Nitin 230 [place] [address] Social History Tobacco Use Types Packs/Day Years [...] 11/07/2025 10:00 AM EST Office Visit [facility] MEDICINE [address] [place] [address] NameNitin MD [address] [place] [address] documented as of this encounter Visit Diagnoses Not on filedocumented in this encounter Additional Health Concerns Assessment Noted Time PHQ-9 Depression Total Score: 3 04/29/20 25 9:41 AM EDT documented as of this encounter Care Teams Teenage Babysitter Relationship Specialty Start Date End Date NameNitin MD [address] [place] [address] PCP - General Family Medicine 08/26/17 [facility] 09/01/24 documented as of this encounter
--- OUTSIDE RECORDS SUMMARY | 2025-11-04 01:51 | XMS_ITS | Encounter Summary ---
Author Organization [employer] Address 75 [facility] 7[address] [place] [address] Care Team Providers Care Director Of Psychiatry Name Role Phone Name, Nitin PIKE Primary Care Provider [phone] Reason for Visit * Reason Comments Med Refill Encounter Details Date Type Department Care Team (Late st Contact Info) Description 08/16/2024 Refill [facility] CH[facility] MED & PEDS [address] [place], [place] [phone] Name, MD Nitin 230 [place] [address] Heartburn Social History Tobacco Use Types Packs/Day [...] EST Office Visit [facility] MEDICINE [address] [place] [address] NameNitin MD [address] [place] [address] documented as of this encounter Visit Diagnoses Diagnosis Heartburn documented in this encounter Additional Health Concerns Assessment Noted Time PHQ-9 Depression Total Score: 6 02/13/20 24 9:14 AM EDT documented as of this encounter Care Teams Director Of Psychiatry Relationship Specialty Start Date End Date NameNitin MD [address] [place] [address] PCP - General Family Medicine 08/26/17 [facility] 09/01/24 documented as of this encounter
--- OUTSIDE RECORDS SUMMARY | 2025-11-04 01:51 | XMS_ITS | Encounter Summary ---
Author Organization [employer] Address 75 [facility] 7t [place] [address] Care Team Providers Care Director Of Strategic Initiatives Name Role Phone Name, Nitin PIKE Primary Care Provider [phone] Reason for Visit * Reason Onset Date Comments Hospital Follow-up 10/20/2024 Encounter Details Date Type Department Care Team ([facility] Contact Info) Description 10/20/2024 Telephone [facility] MEDICINE 230 [place], [place] [phone] Name, MD Nitin 230 [place] [address] Hospital Follow-up Social History Tobacco Use Types [...] pt requesting a HDF appt. Hospital: [facility] Date of admission: 10/17 Discharge date: 10/19 Diagnosed: High Blood Pressure and Fever Contact pt at [phone] *Send message to [place] Clinical Care Coordinators documented in this encounter Plan of Treatment Upcoming Encounters Date Type Department Care Team (Late st Contact Info) Description 11/07/2025 10:00 AM EST Office Visit [facility] MEDICINE 230 [place] [address] Name, MD Nitin [address] [place] [address] documented as of this encounter Visit Diagnoses Not on filedocumented in this encounter Additional Health Concerns Assessment Noted Time PHQ-9 Depression Total Score: 6 02/13/20 24 9:14 AM EDT documented as of this encounter Care Teams Director Of Strategic Initiatives Relationship Specialty Start Date End Date Name, MD Nitin [address] [place] [address] PCP - General Family Medicine 08/26/17 [facility] 09/01/24 documented as of this encounter
--- OUTSIDE RECORDS SUMMARY | 2025-11-04 01:51 | XMS_ITS | Encounter Summary ---
Author Organization [employer] Address 75 [facility] 7[address] [place] [address] Care Team Providers Care Acute Care Nurse Name Role Phone Name, Nitin PIKE Primary Care Provider [phone] Reason for Visit * Reason Comments Med Refill Encounter Details Date Type Department Care Team (Late st Contact Info) Description 08/17/2025 Refill [facility] MEDICINE 230 [place], [place] [phone] Miryam Riley NP 230 [place], [place] [phone] Hypertension, unspecified type Social History Tobacco Use [...] Description 11/07/2025 10:00 AM EST Office Visit [facility] MEDICINE [address] [place] [address] NameNitin MD 230 [place] [address] documented as of this encounter Visit Diagnoses Diagnosis Hypertension, unspecified type documented in this encounter Additional Health Concerns Assessment Noted Time PHQ-9 Depression Total Score: 3 04/29/20 25 9:41 AM EDT documented as of this encounter Care Teams Acute Care Nurse Relationship Specialty Start Date End Date Name, MD Nitin [address] [place] [address] PCP - General Family Medicine 08/26/17 [facility] 09/01/24 documented as of this encounter
--- OUTSIDE RECORDS SUMMARY | 2025-11-04 01:51 | XMS_ITS | Encounter Summary ---
Author Organization [employer] Address 75 [facility] 7[address] [place] [address] Care Team Providers Care Litigator Name Role Phone Name, Nitin PIKE Primary Care Provider [phone] Reason for Visit * Reason Onset Date Comments ER Follow-up 05/04/2024 Encounter Details Date Type Department Care Team ([facility] Contact Info) Description 05/04/2024 Telephone [facility] MEDICINE 230 [place], [place] [phone] Name, MD Nitin 230 [place] [address] ER Follow-up Social History Tobacco Use Types [...] 11:01 AM EDT T/C to pt. Through TVtrip id - [id number] for below message, No answer. LVM to call back [phone] . * Telephone Encounter - Adithya Solorzano - 05/04/2024 9:35 AM EDT Noreen with [facility] calling to report ED visit on : Date: 04/28 Hospital: [facility] Seen for: UTI, Nausea, Rash. Noreen advised will be forwarding message to team nurses. Please contact pt at [phone]. documented in this encounter Plan of Treatment Upcoming Encounters Date Type Department Care Team (Late st Contact Info) Description 11/07/2025 10:00 AM EST Office Visit [facility] MEDICINE 230 [place] [address] Name, MD Nitin [address] [place] [address] documented as of this encounter Visit Diagnoses Not on filedocumented in this encounter Additional Health Concerns Assessment Noted Time PHQ-9 Depression Total Score: 6 02/13/20 9:14 AM EDT documented as of this encounter Care Teams Litigator Relationship Specialty Start Date End Date Name, MD Nitin [address] [place] [address] PCP - General Family Medicine 08/26/17 [facility] 09/01/24 documented as of this encounter
--- OUTSIDE RECORDS SUMMARY | 2025-11-04 01:51 | XMS_ITS | Encounter Summary ---
Author Organization [employer] Address 75 [facility] 7t [place] [address] Care Team Providers Care College Professor Name Role Phone Name, Nitin PIKE Primary Care Provider Encounter Details Date Type Department Care Team ([facility] Contact Info) Description 12/17/2022 Orders Only [facility] CHC MED & PEDS [address] [place], [place] [phone] Lisha Kelly LPN Social History Tobacco Use [...] EST Office Visit [facility] MEDICINE [address] [place] [address] Nitin Echevarria MD 230 [place] [address] documented as of this encounter Visit Diagnoses Not on filedocumented in this encounter Care Teams College Professor Relationship Specialty Start Date End Date NameNitin MD 230 [place] [address] PCP - General Family Medicine 08/26/17 [facility] 09/01/24 documented as of this encounter
--- OUTSIDE RECORDS SUMMARY | 2025-11-04 01:51 | XMS_ITS | Data Portability ---
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 She called today because she insists on having the catheter removed. It was removed by the mechanical energy engineer with the understand ing that if she can't void, she will need to go the the ER. The patient agreed with this plan. [id number] Rohit Benton MD [facility] - [address] [address] 02/06/2024 15:33:16 02/09/2024 18:20:42 Chronic retention of urine [id number] R33.8 Has bunn catheter which was recently [...] Pinzon Member ID Guarantor Name 02/09/2024 1 [facility] - DOS ON OR AFTER 2023 - DUAL ELIGIBLE - SKILLED NURSING OPTIONS AND ONE CARE (MEDICARE REPLACEMENT/ADV ANTAGE - HMO) Noreen Wing [id number] Noreen Wing Notes Date Note Type Note Provider Name and Address Organization Details Recorded Time 01/31/2024 text/html ROS as noted in the HPI [facility] Nurse Triage Notes (Joana Dominique): Reason For Request: Bunn catheter malfunction/painful Chief Complaints: UTI/Pyelonephritis, Equipment-Related Allergies: No Known Comments: Persian speaking member who denies any PMH, denies [...] KAYE Verified name//address Epifanio Mcintyre MD [address] [facility],[address], [place], [address], [employer] 01/31/2024 19:05:57 02/06/2024 text/html ROS as noted [...] son Jame Wing. Member is 78 y/o Persian speaking female who [place] [facility] with her son. Member has multiple ER [...] sees her BH counselor weekly and Prescriber [employer] Maribel monthly if needed or every 2-3 months, .................... .................... .................... .................... .................... .................... .................... . [facility] Nurse Triage Notes (Zafar [place]): Comments: Reviewed HPI .................... .................... .................... .................... .................... .................... .................... . Restaurant Crew Member Note From [place]: Pt sts doesn [...] Vitals stable. Urine clear and light yellow. [facility] contacted and advised pt to rest and advised to make sure she goes to appt Friday. Pt son was used as police lieutenant. Pt education on signs indicating the ER. Restaurant Crew Member Allergies: Clindamycin .................... .................... .................... .................... .................... .................... .................... . Disposition: Fulfilled Rohit Benton MD [address] [facility],[address], [place], [address], [employer] 02/06/2024 17:58:19 OBGyn Episode No OBEpisode recorded.
--- OUTSIDE RECORDS SUMMARY | 2025-11-04 01:51 | XMS_ITS | Encounter Summary ---
Author Organization [employer] Address 75 [facility] 7t [place] [address] Care Team Providers Care Park Guide Name Role Phone Name, Nitin PIKE Primary Care Provider [phone] Reason for Visit * Reason Comments Med Refill Encounter Details Date Type Department Care Team ([facility] st Contact Info) Description 06/28/2024 Refill [facility] 230 [place], [place] [phone] Mel Anguiano FNP 230 [place] [address] Social History Tobacco Use Types Packs/Day Years [...] EST Office Visit [facility] MEDICINE 230 [place] [address] Name, MD Nitin 230 [place] [address] documented as of this encounter Visit Diagnoses Not on filedocumented in this encounter Additional Health Concerns Assessment Noted Time PHQ-9 Depression Total Score: 6 02/13/20 24 9:14 AM EDT documented as of this encounter Care Teams Park Guide Relationship Specialty Start Date End Date Name, MD Nitin [address] [place] [address] PCP - General Family Medicine 08/26/17 [facility] 09/01/24 documented as of this encounter
--- OUTSIDE RECORDS SUMMARY | 2025-11-04 01:51 | XMS_ITS | Encounter Summary ---
Author Organization [employer] Address 75 [facility] 7[address] [place] [address] Care Team Providers Care Sprinkler Fitter Apprentice Name Role Phone Name, Nitin IPKE Primary Care Provider [phone] Reason for Visit * Reason Comments Med Refill Encounter Details Date Type Department Care Team (Late st Contact Info) Description 01/09/2025 Refill [facility] 230 [place], [place] [phone] Name, MD Nitin 230 [place] [address] Hypertension, unspecified type Social History Tobacco Use [...] Office Visit [facility] MEDICINE [address] [place] [address] NameNitin MD [address] [place] [address] documented as of this encounter Visit Diagnoses Diagnosis Hypertension, unspecified type documented in this encounter Additional Health Concerns Assessment Noted Time PHQ-9 Depression Total Score: 6 02/13/20 9:14 AM EDT documented as of this encounter Care Teams Sprinkler Fitter Apprentice Relationship Specialty Start Date End Date NameNitin MD [address] [place] [address] PCP - General Family Medicine 08/26/17 [facility] 09/01/24 documented as of this encounter
--- OUTSIDE RECORDS SUMMARY | 2025-11-04 01:51 | XMS_ITS | Encounter Summary ---
Author Organization [employer] Address 75 [facility] 7[address] [place] [address] Care Team Providers Care Pricing Analyst Name Role Phone Name, Nitin PIKE Primary Care Provider [phone] Encounter Details Date Type Department Care Team (Late st Contact Info) Description 11/06/2022 Orders Only [facility] CHC MED & PEDS [address] [place], [place] [phone] Lisha Kelly LPN Social History Tobacco Use [...] Description 11/07/2025 10:00 AM EST Office Visit [facility] MEDICINE 230 [place] [address] NameNitin MD 230 [place] [address] documented as of this encounter Visit Diagnoses Not on filedocumented in this encounter Care Teams Pricing Analyst Relationship Specialty Start Date End Date Nitin Echevarria MD 230 [place] [address] PCP - General Family Medicine 08/26/17 [facility] 09/01/24 documented as of this encounter
--- OUTSIDE RECORDS SUMMARY | 2025-11-04 01:51 | XMS_ITS | Encounter Summary ---
Author Organization [employer] Address 75 [facility] 7t [place] [address] Care Team Providers Care Senior Java Ui Developer Name Role Phone Name, Nitin PIKE Primary Care Provider Reason for Visit * Reason Onset Date Comments Results 08/29/2023 Encounter Details Date Type Department Care Team ([facility] st Contact Info) Description 08/29/2023 Telephone [facility] MEDICINE 230 [place], [place] [phone] Name, MD Nitin 230 [place] [address] Results Social History Tobacco Use Types Packs/Day [...] 09/01/2023 11:51 AM EDT Pt evaluated in [facility] today and is scheduled with pcp 09/03/23. * Telephone Encounter - Janette Huitron - 08/29/2023 4:06 PM EDT Tc from pt requesting a call in regards to urine results. Please contact pt at [phone] (Korean) documented in this encounter Plan of Treatment Upcoming Encounters Date Type Department Care Team (Late st Contact Info) Description 11/07/2025 10:00 AM EST Office Visit [facility] MEDICINE [address] [place] [address] Name, MD Nitin [address] [place] [address] documented as of this encounter Visit Diagnoses Not on filedocumented in this encounter Additional Health Concerns Assessment Noted Time PHQ-9 Depression Total Score: 12 023 9:37 AM EDT documented as of this encounter Care Teams Senior Java Ui Developer Relationship Specialty Start Date End Date Name, MD Nitin [address] [place] [address] PCP - General Family Medicine 08/26/17 [facility] 09/01/24 documented as of this encounter
--- OUTSIDE RECORDS SUMMARY | 2025-11-04 01:51 | XMS_ITS | Encounter Summary ---
Author Organization [employer] Address 75 [facility] [address] [address] Care Team Providers Care Physician Executive Name Role Phone Name, Nitin PIKE Primary Care Provider [phone] Reason for Visit * Reason Onset Date Comments triage 12/18/2022 Encounter Details Date Type Department Care Team ([facility] st Contact Info) Description 12/18/2022 Telephone [facility] MEDICINE 230 [place], [place] [phone] Name, MD Nitin 230 [place] [address] triage Social History Tobacco Use Types Packs/Day [...] 12/18/2022 2:35 PM EST Called pt. Via [employer] electroless plater [id number] Eduardo. Pt. States that she has a [...] phone. Please reach out to pt. With South Korean speaking another time to see what her [...] EST Office Visit [facility] MEDICINE 230 [place] [address] Name, MD Nitin 230 [place] [address] documented as of this encounter Visit Diagnoses Not on filedocumented in this encounter Care Teams Physician Executive Relationship Specialty Start Date End Date Name, MD Nitin 230 [place] [address] PCP - General Family Medicine 08/26/17 [facility] 09/01/24 documented as of this encounter
--- OUTSIDE RECORDS SUMMARY | 2025-11-04 01:51 | XMS_ITS | Clinical Summary ---
Author Organization [facility] Facility Address [address] [address] Care Team Providers Care Communications Professional Name Role Phone Name, Nitin PIKE Primary Care Provider [phone] Allergies Active Allergy Reactions Criticality Noted Date [...] patient's age to complete this topic [place] [address] MCR ([id number]) SARA PHILLIPS [phone] [facility] MCR ([id number]) Care Teams Communications Professional Relationship Specialty Start Date End Date Name, MD Nitin [address] [place] [address] PCP - General Internal Medicine 10/15/22
--- OUTSIDE RECORDS SUMMARY | 2025-11-04 01:51 | XMS_ITS | Encounter Summary ---
Author Organization [employer] Address 75 [facility] 7[address] [place] [address] Care Team Providers Care Frame Trimmer Name Role Phone Name, Nitin PIKE Primary Care Provider [phone] Encounter Details Date Type Department Care Team ([facility] Contact Info) Description 08/08/2023 Telephone [facility] MEDICINE [address] [place] [address] [phone] Name, MD Nitin [address] [place] [address] [phone] Social History Tobacco Use Types Packs/Day Years [...] Office Visit [facility] MEDICINE [address] [place] [address] [phone] Name, MD Nitin [address] [place] [address] [phone] documented as of this encounter Visit Diagnoses Not on filedocumented in this encounter Additional Health Concerns Assessment Noted Time PHQ-9 Depression Total Score: 12 023 9:37 AM EDT documented as of this encounter Care Teams Frame Trimmer Relationship Specialty Start Date End Date Name, MD Nitin 230 [place] [address] PCP - General Family Medicine 08/26/17 [facility] 09/01/24 documented as of this encounter
--- OUTSIDE RECORDS SUMMARY | 2025-11-04 01:51 | XMS_ITS | Encounter Summary ---
Author Organization [employer] Address 75 [facility] 7[address] [place] [address] Care Team Providers Care Business Development Consultant Name Role Phone Name, Nitin PIKE Primary Care Provider Reason for Visit * Reason Onset Date Comments ER Follow-up 05/31/2024 Encounter Details Date Type Department Care Team ([facility] Contact Info) Description 05/31/2024 Telephone [facility] MEDICINE 230 [place], [place] [phone] Name, MD Nitin 230 [place] [address] ER Follow-up Social History Tobacco Use Types [...] 05/31/2024 1:36 PM EDT T/C to Pat ([facility]) [phone] for below message, no answer. LVM to call back on [phone]. * Telephone Encounter - Melany Santos RN - 05/31/2024 1:32 PM EDT DAVID T/C to pt. Through Doochoo id - [id number] for below message, pt. Had recent fall and ED visit at [facility]. RN will request GRACE piedra from [facility]. Pt. Is doing good, states I am tired andsleeping. Pt. Dose not has any question or concern right now. Pt. Already has HDF apt. Schedule on 06/10/2024. Pt. Advised to give call to [facility] if any questions or concerns. [...] Visit [facility] MEDICINE [address] [place] [address] Name, MD Nitin [address] [place] [address] documented as of this encounter Visit Diagnoses Not on filedocumented in this encounter Additional Health Concerns Assessment Noted Time PHQ-9 Depression Total Score: 6 02/13/20 24 9:14 AM EDT documented as of this encounter Care Teams Business Development Consultant Relationship Specialty Start Date End Date Name, MD Nitin [address] [place] [address] PCP - General Family Medicine 08/26/17 [facility] 09/01/24 documented as of this encounter
--- OUTSIDE RECORDS SUMMARY | 2025-11-04 01:51 | XMS_ITS | Encounter Summary ---
Author Organization [employer] Address 75 [facility] 7[address] [place] [address] Care Team Providers Care Home Health Rn Name Role Phone Name, Nitin PIKE Primary Care Provider [phone] Reason for Visit * Reason Onset Date Comments Referral 08/24/2025 Encounter Details Date Type Department Care Team ([facility] st Contact Info) Description 08/24/2025 Telephone [facility] MEDICINE 230 [place], [place] [phone] Name, MD Nitin [address] [place] [address] Referral Social History Tobacco Use Types Packs/Day [...] DATE: 09/21/25 TIME: 10 am Facility Name: [facility] PT Type of Specialist: Physical therapy Facility Phone # : [phone] Fax #: [phone] documented in this encounter Plan of Treatment Upcoming Encounters Date Type Department Care Team (Late st Contact Info) Description 11/07/2025 10:00 AM EST Office Visit [facility] MEDICINE 230 [place], [place] [phone] Name, MD Nitin [address] [place] [address] documented as of this encounter Visit Diagnoses Not on filedocumented in this encounter Additional Health Concerns Assessment Noted Time PHQ-9 Depression Total Score: 3 04/29/20 9:41 AM EDT documented as of this encounter Care Teams Home Health Rn Relationship Specialty Start Date End Date Name, MD Nitin [address] [place] [address] PCP - General Family Medicine 08/26/17 [facility] 09/01/24 documented as of this encounter
--- OUTSIDE RECORDS SUMMARY | 2025-11-04 01:51 | XMS_ITS | Encounter Summary ---
Author Organization [employer] Address 75 [facility] [address] [place] [address] Care Team Providers Care Goodwill Ambassador Name Role Phone Name, Nitin PIKE Primary Care Provider [phone] Reason for Visit * Reason Comments Med Refill Encounter Details Date Type Department Care Team ([facility] st Contact Info) Description 04/01/[address] [facility] [address] [place], [place] [phone] Name, MD Nitin [address] [place] [address] Rash Social History Tobacco Use Types Packs/Day [...] 11/07/2025 10:00 AM EST Office Visit [facility] [address] [place] [address] NameNitin MD [address] [place] [address] documented as of this encounter Visit Diagnoses Diagnosis Rash Rash and other nonspecific skin eruption documented in this encounter Additional Health Concerns Assessment Noted Time PHQ-9 Depression Total Score: 6 02/13/20 24 9:14 AM EDT documented as of this encounter Care Teams Goodwill Ambassador Relationship Specialty Start Date End Date NameNitin MD [address] [place] [address] PCP - General Family Medicine 08/26/17 [facility] 09/01/24 documented as of this encounter
--- OUTSIDE RECORDS SUMMARY | 2025-11-04 01:51 | XMS_ITS | Encounter Summary ---
Author Organization [employer] Address 75 [facility] [address] [place] [address] Care Team Providers Care Guest Relations Manager Name Role Phone Name, Nitin PIKE Primary Care Provider [phone] Encounter Details Date Type Department Care Team (Late st Contact Info) Description 05/26/2023 Orders Only [facility] [address] [place] [address] [phone] Noreen Fox MD [address] [place] [address] [phone] Social History Tobacco Use Types Packs/Day Years [...] AM EST Office Visit [facility] [address] [place] [address] NameNitin MD [address] [place] [address] documented as of this encounter Visit Diagnoses Not on filedocumented in this encounter Care Teams Guest Relations Manager Relationship Specialty Start Date End Date Name, MD Nitin [address] [place] [address] PCP - General Family Medicine 08/26/17 [facility] 09/01/24 documented as of this encounter
--- OUTSIDE RECORDS SUMMARY | 2025-11-04 01:51 | XMS_ITS | Encounter Summary ---
Author Organization [employer] Address 75 [facility] 7[address] [place] [address] Care Team Providers Care Inspecting And Testing Lead Hand Name Role Phone Name, Nitin PIKE Primary Care Provider [phone] Reason for Visit * Reason Onset Date Comments Durable Medical Equipment 12/09/2023 Encounter Details Date Type Department Care Team ([facility] st Contact Info) Description 12/09/[address] [facility] MED[facility]INE 230 [place], [place] [phone] Name, MD Nitin 230 [place], [place] [phone] Durable Medical Equipment Social History Tobacco Use [...] 10:11 AM EST DME rx faxed to [facility] as requested. RN will consult with S nurse and provide referral. * Telephone Encounter - Fozia Jacob RN - 12/09/2023 4:58 PM EST Call returned to [facility] at [facility] [phone] ext. [phone]. [facility] states that [facility] attempted to provide PT at home but pt refused. [facility] pt is requesting outpatient PT. [facility] pt is seeing a counselor more regularly and has agreed to VNA referral. Reports pt has had 3 falls in the past 2 months. [facility] states [facility] no longer has visiting nurses. [facility] recommends [facility] or [facility] for VNA referral. [facility] also requesting DME rx for rollator walker and a straight cane. Requests that DME rx be faxed to [phone]. Advised requests will be sent to pcp. * Telephone Encounter - Adithya Solorzano - 12/09/2023 4:25 PM EST Tc from [facility] requesting DME: Rollator walker . documented in this encounter Plan of Treatment Upcoming Encounters Date Type Department Care Team (Late st Contact Info) Description 11/07/2025 10:00 AM EST Office Visit [facility] MED[facility]INE [address] [place] [address] Name, MD Nitin 230 [place] [address] documented as of this encounter Visit Diagnoses Not on filedocumented in this encounter Additional Health Concerns Assessment Noted Time PHQ-9 Depression Total Score: 12 023 9:37 AM EDT documented as of this encounter Care Teams Inspecting And Testing Lead Hand Relationship Specialty Start Date End Date Name, MD Nitin [facility] [place] [address] PCP - General Family Medicine 08/26/17 [facility] 09/01/24 documented as of this encounter
--- OUTSIDE RECORDS SUMMARY | 2025-11-04 01:51 | XMS_ITS | Encounter Summary ---
Author Organization [employer] Address 75 [facility] 7[address] [place] [address] Care Team Providers Care Database Development Project Manager Name Role Phone Name, Nitin PIKE Primary Care Provider [phone] Reason for Visit * Reason Onset Date Comments Med Refill 11/08/2024 Encounter Details Date Type Department Care Team ([facility] st Contact Info) Description 11/08/2024 Telephone [facility] 230 [place], [place] [phone] Name, MD Nitin 230 [place] [address] Med Refill Social History Tobacco Use Types [...] 5 MG tablet To be sent to: [facility] - [place], [place] - [address] [facility] documented in this encounter Plan of Treatment Upcoming Encounters Date Type Department Care Team ([facility] st Contact Info) Description 11/07/2025 10:00 AM EST Office Visit [facility] [address] [place] [address] Name, MD Nitin 230 [place] [address] documented as of this encounter Visit Diagnoses Not on filedocumented in this encounter Additional Health Concerns Assessment Noted Time PHQ-9 Depression Total Score: 6 02/13/20 24 9:14 AM EDT documented as of this encounter Care Teams Database Development Project Manager Relationship Specialty Start Date End Date Name, MD Nitin 230 [place] [address] PCP - General Family Medicine 08/26/17 [facility] 09/01/24 documented as of this encounter
--- OUTSIDE RECORDS SUMMARY | 2025-11-04 01:51 | XMS_ITS | Encounter Summary ---
Author Organization [employer] Address 75 [facility] 7[address] [place] [address] Care Team Providers Care Application Helper Name Role Phone Name, Nitin PIKE Primary Care Provider [phone] Reason for Visit * Reason Onset Date Comments Call Back Request 03/14/2025 Encounter Details Date Type Department Care Team ([facility] st Contact Info) Description 03/14/2025 Telephone [facility] MEDICINE 230 [place], [place] [phone] Name, MD Nitin [address] [place] [address] Call Back Request Social History Tobacco Use [...] Office Visit [facility] [address] [place] [address] Name, MD Nitin 230 [place] [address] documented as of this encounter Visit Diagnoses Not on filedocumented in this encounter Additional Health Concerns Assessment Noted Time PHQ-9 Depression Total Score: 6 02/13/20 9:14 AM EDT documented as of this encounter Care Teams Application Helper Relationship Specialty Start Date End Date Name, MD Nitin 230 [place] [address] PCP - General Family Medicine 08/26/17 [facility] 09/01/24 documented as of this encounter
--- OUTSIDE RECORDS SUMMARY | 2025-11-04 01:52 | XMS_ITS | Encounter Summary ---
Author Organization [employer] Address 75 [facility] [address] [place] [address] Care Team Providers Care Generator Assembler Name Role Phone Name, Nitin PIKE Primary Care Provider [phone] Encounter Details Date Type Department Care Team ([facility] Contact Info) Description 01/06/2023 Orders Only [facility] MED & PEDS [address] [place], [place] [phone] Lisha Kelly LPN Social History Tobacco Use [...] [facility] [address] [place], [place] [phone] NameNitin MD 230 [place] [address] documented as of this encounter Visit Diagnoses Not on filedocumented in this encounter Care Teams Generator Assembler Relationship Specialty Start Date End Date NameNitin MD 230 [place] [address] PCP - General Family Medicine 08/26/17 [facility] 09/01/24 documented as of this encounter
--- OUTSIDE RECORDS SUMMARY | 2025-11-04 01:52 | XMS_ITS | Encounter Summary ---
Author Organization [employer] Address 75 [facility] 7[address] [place] [address] Care Team Providers Care Street Contractor Name Role Phone Name, Nitin PIKE Primary Care Provider [phone] Reason for Visit * Reason Onset Date Comments Verbal Orders 12/15/2023 Encounter Details Date Type Department Care Team ([facility] st Contact Info) Description 12/15/2023 Telephone [facility]INE 230 [place], [place] [phone] Name, MD Nitin [address] [place] [address] Verbal Orders Social History Tobacco Use Types [...] 12:03 PM EST Tc from [facility] with [employer] requesting verbal order to see pt 2 times a week for 4 weeks for Occupational Therapy, please contact [facility] at [phone] documented in this encounter Plan of Treatment Upcoming Encounters Date Type Department Care Team (Late st Contact Info) Description 11/07/2025 10:00 AM EST Office Visit [facility] [address] [place] [address] Name, MD Nitin [address] [place] [address] documented as of this encounter Visit Diagnoses Not on filedocumented in this encounter Additional Health Concerns Assessment Noted Time PHQ-9 Depression Total Score: 12 023 9:37 AM EDT documented as of this encounter Care Teams Street Contractor Relationship Specialty Start Date End Date Name, MD Nitin [address] [place] [address] PCP - General Family Medicine 08/26/17 [facility] 09/01/24 documented as of this encounter
--- OUTSIDE RECORDS SUMMARY | 2025-11-04 01:52 | XMS_ITS | Encounter Summary ---
Author Organization [employer] Address 75 [facility] 7[address] [place] [address] Care Team Providers Care Paver Operator Name Role Phone Name, Nitin PIKE Primary Care Provider [phone] Reason for Visit * Reason Comments Med Refill Encounter Details Date Type Department Care Team (Late Contact Info) Description 03/02/2023 Refill [facility] [address] [place] [address] Karely Patiño MD [address] [place] [address] [phone] Social History Tobacco Use Types Packs/Day Years [...] EST Office Visit [facility] [address] [place] [address] Name, MD Nitin [address] [place] [address] documented as of this encounter Visit Diagnoses Not on filedocumented in this encounter Care Teams Paver Operator Relationship Specialty Start Date End Date Name, MD Nitin 230 [place] [address] PCP - General Family Medicine 08/26/17 [facility] 09/01/24 documented as of this encounter
--- OUTSIDE RECORDS SUMMARY | 2025-11-04 01:52 | XMS_ITS | Encounter Summary ---
Author Organization [employer] Address 75 [facility] 7[address] [place] [address] Care Team Providers Care Hand Splitter Name Role Phone Name, Nitin PIKE Primary Care Provider [phone] Reason for Visit * Reason Onset Date Comments Verbal Orders 01/02/2024 Encounter Details Date Type Department Care Team ([facility] st Contact Info) Description 01/02/2024 Telephone [facility] 230 [place], [place] [phone] Name, MD Nitin 230 [place] [address] Verbal Orders Social History Tobacco Use Types [...] No answer. LVM to call back on [phone]. * Telephone Encounter - Melany Santos RN - 01/06/2024 10:25 AM EST Please review and advise for below request. * Telephone Encounter - Deana Bazzi - 01/02/2024 3:44 PM EST Tc from [facility] with [facility] requesting verbal orders for discharge pt from Occupational Therapy, due to pt refuses services, please contact [facility] at [phone]. documented in this encounter Plan of Treatment Upcoming Encounters Date Type Department Care Team (Late st Contact Info) Description 11/07/2025 10:00 AM EST Office Visit [facility] [address] [place] [address] Name, MD Nitin 230 [place] [address] documented as of this encounter Visit Diagnoses Not on filedocumented in this encounter Additional Health Concerns Assessment Noted Time PHQ-9 Depression Total Score: 12 023 9:37 AM EDT documented as of this encounter Care Teams Hand Splitter Relationship Specialty Start Date End Date Name, MD Nitin [address] [place] [address] PCP - General Family Medicine 08/26/17 [facility] 09/01/24 documented as of this encounter
--- OUTSIDE RECORDS SUMMARY | 2025-11-04 01:52 | XMS_ITS | Encounter Summary ---
Author Organization [employer] Address 75 [facility] 7[address] [place] [address] Care Team Providers Care Automobile Service Station Attendant Name Role Phone Name, Nitin PIKE Primary Care Provider [phone] Reason for Visit * Reason Onset Date Comments FYI 01/21/2024 ER Follow-up 01/21/2024 Encounter Details Date Type Department Care Team ([facility] st Contact Info) Description 01/21/2024 Telephone [facility] MEDICINE 230 [place], [place] [phone] Name, MD Nitin 230 [place] [address] FYI; ER Follow-up Social History Tobacco Use [...] 9:45 AM EDT Tc from [facility]ata with [facility] ED calling in regards to pt. States pt was seen today for anxiety and is requesting trazodone. Will discharge pt with no medication change. Would also like to advise provider, pt was seen at [facility] on 01/17 for anxiety/insomnia as well documented in this encounter Plan of Treatment Upcoming Encounters Date Type Department Care Team (Late st Contact Info) Description 11/07/2025 10:00 AM EST Office Visit [facility] MEDICINE [address] [place] [address] Name, MD Nitin [address] [place] [address] documented as of this encounter Visit Diagnoses Not on filedocumented in this encounter Additional Health Concerns Assessment Noted Time PHQ-9 Depression Total Score: 12 023 9:37 AM EDT documented as of this encounter Care Teams Automobile Service Station Attendant Relationship Specialty Start Date End Date Name, MD Nitin [address] [place] [address] PCP - General Family Medicine 08/26/17 [facility] 09/01/24 documented as of this encounter
== END 2025-11-04 01:50 | disposition left against medical advice (07) ==
LOC: HO.ED 11-04 01:48
PROVIDERS: Emergency Provider Emergency Medicine
DX: R10.9 Unspecified abdominal pain (principal); K59.00 Constipation, unspecified
CPT/HCPCS: 99281

== ENCOUNTER 2025-11-04 04:28 | Emergency (ER) | payer OTHER, SELFPAY ==
[2025-11-04 04:42] VITALS: BP 145/84; BP 159/83; PULSE 87; PULSE 94; RESP 20; TEMP 37; O2SAT 96; O2SAT 97; BMI 27.4
[2025-11-04 05:04] VITALS: BP 159/83; PULSE 94; RESP 20; TEMP 37; O2SAT 96
--- NOTE | 2025-11-04 06:23 | ED.EAR ---
HPI - Ear Problem General Chief complaint: Ear Problems Stated complaint: Out of medications Time Seen by Provider: 11/04/25 06:11 Source: patient and EMS Mode of arrival: EMS Limitations: language barrier History of Present Illness ED Provider: HPI Narrative: 80-year-old female with multiple ED visits, care plan in place, presenting requesting medication for anxiety states that she is getting her anxiety medication on Friday and she would like a few days of anxiety medication as well as complaining of vertigo. Related Data Home Medications ?Medication ?Instructions ?Recorded ?Confirmed omeprazole 20 mg tablet,delayed 20 mg PO DAILY@0630 08/09/20 08/22/25 release aspirin 81 mg tablet,delayed 81 mg PO QAM 01/28/24 08/22/25 release bisacodyl 5 mg tablet,delayed 5 mg PO DAILY PRN constipation 01/28/24 08/22/25 release ferrous sulfate 325 mg (65 mg 325 mg PO DAILY 01/28/24 08/22/25 iron) tablet (FeroSul) melatonin 10 mg tablet,extended 10 mg PO BEDTIME PRN Insomnia 01/28/24 08/22/25 release multivitamin 1 tab PO QAM 01/28/24 08/22/25 rosuvastatin 20 mg tablet 20 mg PO BEDTIME 01/28/24 08/22/25 trazodone 50 mg tablet 50 mg PO BEDTIME 01/28/24 08/22/25 amlodipine 10 mg tablet 10 mg PO DAILY 02/09/24 08/22/25 acetaminophen 500 mg tablet 500 mg PO Q8H PRN pain 08/09/24 08/22/25 cholecalciferol (vitamin D3) 25 25 mcg PO DAILY 08/20/24 08/22/25 mcg (1,000 unit) tablet sertraline 100 mg tablet 100 mg PO DAILY 03/16/25 08/22/25 apixaban 5 mg tablet 5 mg PO BID 08/22/25 08/22/25 clonazepam 0.5 mg tablet 0.5 mg PO TID 08/22/25 08/22/25 fluticasone propionate 50 2 spray intranasal DAILY PRN 08/22/25 08/22/25 mcg/actuation nasal Allergic Symptoms spray,suspension (Flonase Allergy Relief) hydroxyzine HCl 25 mg tablet 10 mg PO DAILY PRN anxiety 08/22/25 08/22/25 ketotifen fumarate 0.025 % (0.035 1 drp ophthalmic (eye) BID PRN 08/22/25 08/22/25 %) eye drops allergies mirtazapine 45 mg tablet 45 mg PO BEDTIME 08/22/25 08/22/25 valsartan 160 mg tablet 160 mg PO QPM 08/22/25 08/22/25 Previous Rx's ?Medication ?Instructions ?Recorded metoprolol succinate 50 mg 50 mg PO DAILY #90 tabs 09/28/20 tablet,extended release 24 hr docusate sodium 100 mg capsule 200 mg (2 x 100 mg) PO BID #20 caps 02/24/25 (Colace) ibuprofen 200 mg tablet 200 mg PO Q6H PRN pain #20 tabs 07/24/25 meclizine 12.5 mg tablet 12.5 mg PO TID PRN dizziness or 07/26/25 vertigo #30 tabs meclizine 25 mg tablet 25 mg PO BID PRN dizziness #14 tabs 09/22/25 meclizine 25 mg tablet 25 mg PO BID PRN dizziness #14 tabs 10/10/25 meclizine 25 mg tablet 25 mg PO BID PRN dizziness #14 tabs 11/01/25 Allergies Allergy/AdvReac Type Severity Reaction Status Date / Time penicillin G (Penicillin G) Allergy Severe ITCHY/RASH Verified 11/04/25 05:03 Sulfa (Sulfonamide Allergy Severe ITCHY,RASH, Verified 11/04/25 05:03 Antibiotics) (Sulfa rash (Sulfonamides)) trimethoprim (From Bactrim) Allergy Severe HIVES Verified 11/04/25 05:03 Penicillins Allergy Intermediate Hives Verified 11/04/25 05:03 sulfamethoxazole (From Allergy Mild Hives Verified 11/04/25 05:03 Bactrim) Review of Systems Constitutional: Constitutional: Reports as per [facility] Past Medical History 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 or 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 (regional sales consultant) Alcohol intake: never Patient Tobacco Use Status: Never used Tobacco Smoked in Last 30 Days: No Use of substances other than those prescribed or required for medical reasons: No Advance Directives: Yes Advance Directives on File: Yes Advance Directives Date on File: 01/28/24 service: No Physical Exam Exam: Exam: Ambulatory, no ataxia I did not appreciate nystagmus horizontal or vertical, she has no dysmetria upper or lower extremities Right ear is clogged, left ear with some external irritation patient reports surgery in that ear Supple neck S1-S2 Alert and oriented x4 Anxious affect Vital Signs: Vital Signs: Last Vital Signs Temp 98.6 F 11/04/25 05:04 Pulse 94 11/04/25 05:04 Resp 20 11/04/25 05:04 BP 159/83 H 11/04/25 05:04 Pulse Ox 96 11/04/25 05:04 O2 Del Method Room Air 11/04/25 05:04 BMI result Body Mass Index 27.4 Medical Decision Making Medical Decision Making MDM Narrative: 6:33 AM 11/04/2025 (Dr. Rafael Calderon): That we will provide the patient was scopolamine discuss with her that she will be not provided any benzodiazepines in the emergency department for anxiety, she has clogged right ear and reports surgery left ear there was no drainage slightly erythematous external canal no indication for any blood work or evaluation for hyponatremia at this time Differential Diagnosis Differential Diagnoses: The differential diagnosis associated with the presentation includes (BPPV, anxiety, dysrhythmia, stroke, dehydration) Discharge Plan Discharge Clinical Impression: Vertigo Additional Instructions: You were evaluated with reports of vertigo and anxiety, as discussed you will no longer be prescribed any medications for anxiety in the emergency department or receiving a 1 time dose of clonazepam, scopolamine as a patch from vertigo and you can keep it in place for 3 days and then follow up with the PCP Se le evalu? por s?ntomas de v?rtigo y ansiedad. Ziyad se le explic?, ya no se le recetar?n medicamentos para la ansiedad en el servicio de urgencias ni se le administrar? suzy dosis ?alicia de clonazepam. Se le aplicar? un parche de escopolamina para el v?rtigo, el cual puede mantener puesto raz 3 d?as, y posteriormente deber? acudir a suzy kvng de seguimiento con clark m?dico de cabecera. Prescriptions: No Action metoprolol succinate 50 mg tablet extended release 24 hr 50 mg PO DAILY Qty: 90 2RF omeprazole 20 mg Tablet,Delayed Release (Dr/Ec) 20 mg PO DAILY@0630 meclizine 12.5 mg tablet 12.5 mg PO TID PRN (Reason: dizziness or vertigo) Qty: 30 0RF meclizine 25 mg tablet 25 mg PO BID PRN (Reason: dizziness) Qty: 14 0RF meclizine 25 mg tablet 25 mg PO BID PRN (Reason: dizziness) Qty: 14 0RF trazodone 50 mg tablet 50 mg PO BEDTIME ferrous sulfate [FeroSul] 325 mg (65 mg iron) tablet 325 mg PO DAILY bisacodyl 5 mg tablet,delayed release (DR/EC) 5 mg PO DAILY PRN (Reason: constipation) rosuvastatin 20 mg tablet 20 mg PO BEDTIME aspirin 81 mg tablet,delayed release (DR/EC) 81 mg PO QAM multivitamin Tablet 1 tab PO QAM melatonin 10 mg tablet extended release 10 mg PO BEDTIME PRN (Reason: Insomnia) cholecalciferol (vitamin D3) 25 mcg (1,000 unit) tablet 25 mcg PO DAILY acetaminophen 500 mg tablet 500 mg PO Q8H PRN (Reason: pain) docusate sodium [Colace] 100 mg capsule 200 mg PO BID Qty: 20 0RF ibuprofen 200 mg tablet 200 mg PO Q6H PRN (Reason: pain) Qty: 20 0RF ketotifen fumarate 0.025 % (0.035 %) drops 1 drp ophthalmic (eye) BID PRN (Reason: allergies) mirtazapine 45 mg tablet 45 mg PO BEDTIME clonazepam 0.5 mg tablet 0.5 mg PO TID hydroxyzine HCl 25 mg tablet 10 mg PO DAILY PRN (Reason: anxiety) fluticasone propionate [Flonase Allergy Relief] 50 mcg/actuation spray,suspension 2 spray intranasal DAILY PRN (Reason: Allergic Symptoms) Rx Instructions: administer into each nostril apixaban 5 mg tablet 5 mg PO BID valsartan 160 mg tablet 160 mg PO QPM meclizine 25 mg tablet 25 mg PO BID PRN (Reason: dizziness) Qty: 14 0RF sertraline 100 mg tablet 100 mg PO DAILY amlodipine 10 mg tablet 10 mg PO DAILY Print Language: Lao
[2025-11-04 06:48] VITALS: BP 159/83; PULSE 94; RESP 20; TEMP 37; O2SAT 96
== END 2025-11-04 06:48 | disposition home or self-care (01) ==
PROVIDERS: Emergency Provider Emergency Medicine
DX: R55 Syncope and collapse (principal); F41.9 Anxiety disorder, unspecified; I10 Essential (primary) hypertension; Z53.21 Procedure and treatment not carried out due to patient leaving prior to being seen by health care provider
CPT/HCPCS: 99281; 99283

== ENCOUNTER 2025-11-05 02:34 | Emergency (ER) | payer OTHER, SELFPAY ==
[2025-11-05 02:42] VITALS: BP 152/84; PULSE 96; O2SAT 97
[2025-11-05 02:52] VITALS: BP 144/73; PULSE 90; RESP 16; TEMP 36.7; O2SAT 95; BMI 30.6
--- NOTE | 2025-11-05 03:16 | ED.ANXIETY ---
HPI - Anxiety General Chief Complaint: Anxiety Stated Complaint: ANXIETY,PT STS NO MEDS PER EMS Time Seen by Provider: 11/05/25 03:15 Source: patient and EMS Mode of arrival: EMS Limitations: language barrier (Charging Crane Operator iPad utilized.) History of Present Illness ED Provider: Paul RUIZ HPI narrative: gear cutting machine set up operator present for the entire encounter. The patient is an 80-year-old female presenting to the ED for the 4th time in 3 days seeking benzodiazepines for chronic anxiety. The patient states she ran out of her prescribed clonazepam approximately one week ago. She reports that her prescribing physician did not send the refill to the pharmacy on or Friday and is not available until Friday. The patient states that without clonazepam she experiences marked anxiety, with subjective racing palpitations and elevated blood pressure. Today she again arrived by ambulance requesting a prescription for clonazepam ?until Friday?, and/or a single clonazepam tablet. She reports willingness to sign a letter that she will follow up with the her PCP for additional medications if she receives a prescription today. Related Data Home Medications ?Medication ?Instructions ?Recorded ?Confirmed omeprazole 20 mg tablet,delayed 20 mg PO DAILY@0630 08/09/20 08/22/25 release aspirin 81 mg tablet,delayed 81 mg PO QAM 01/28/24 08/22/25 release bisacodyl 5 mg tablet,delayed 5 mg PO DAILY PRN constipation 01/28/24 08/22/25 release ferrous sulfate 325 mg (65 mg 325 mg PO DAILY 01/28/24 08/22/25 iron) tablet (FeroSul) melatonin 10 mg tablet,extended 10 mg PO BEDTIME PRN Insomnia 01/28/24 08/22/25 release multivitamin 1 tab PO QAM 01/28/24 08/22/25 rosuvastatin 20 mg tablet 20 mg PO BEDTIME 01/28/24 08/22/25 trazodone 50 mg tablet 50 mg PO BEDTIME 01/28/24 08/22/25 amlodipine 10 mg tablet 10 mg PO DAILY 02/09/24 08/22/25 acetaminophen 500 mg tablet 500 mg PO Q8H PRN pain 08/09/24 08/22/25 cholecalciferol (vitamin D3) 25 25 mcg PO DAILY 08/20/24 08/22/25 mcg (1,000 unit) tablet sertraline 100 mg tablet 100 mg PO DAILY 03/16/25 08/22/25 apixaban 5 mg tablet 5 mg PO BID 08/22/25 08/22/25 clonazepam 0.5 mg tablet 0.5 mg PO TID 08/22/25 08/22/25 fluticasone propionate 50 2 spray intranasal DAILY PRN 08/22/25 08/22/25 mcg/actuation nasal Allergic Symptoms spray,suspension (Flonase Allergy Relief) hydroxyzine HCl 25 mg tablet 10 mg PO DAILY PRN anxiety 08/22/25 08/22/25 ketotifen fumarate 0.025 % (0.035 1 drp ophthalmic (eye) BID PRN 08/22/25 08/22/25 %) eye drops allergies mirtazapine 45 mg tablet 45 mg PO BEDTIME 08/22/25 08/22/25 valsartan 160 mg tablet 160 mg PO QPM 08/22/25 08/22/25 Previous Rx's ?Medication ?Instructions ?Recorded metoprolol succinate 50 mg 50 mg PO DAILY #90 tabs 09/28/20 tablet,extended release 24 hr docusate sodium 100 mg capsule 200 mg (2 x 100 mg) PO BID #20 caps 02/24/25 (Colace) ibuprofen 200 mg tablet 200 mg PO Q6H PRN pain #20 tabs 07/24/25 meclizine 12.5 mg tablet 12.5 mg PO TID PRN dizziness or 07/26/25 vertigo #30 tabs meclizine 25 mg tablet 25 mg PO BID PRN dizziness #14 tabs 09/22/25 meclizine 25 mg tablet 25 mg PO BID PRN dizziness #14 tabs 10/10/25 meclizine 25 mg tablet 25 mg PO BID PRN dizziness #14 tabs 11/01/25 Allergies Allergy/AdvReac Type Severity Reaction Status Date / Time penicillin G (Penicillin G) Allergy Severe ITCHY/RASH Verified 11/05/25 02:53 Sulfa (Sulfonamide Allergy Severe ITCHY,RASH, Verified 11/05/25 02:53 Antibiotics) (Sulfa rash (Sulfonamides)) trimethoprim (From Bactrim) Allergy Severe HIVES Verified 11/05/25 02:53 Penicillins Allergy Intermediate Hives Verified 11/05/25 02:53 sulfamethoxazole (From Allergy Mild Hives Verified 11/05/25 02:53 Bactrim) Review of Systems Review of Systems: Yes all other systems are reviewed and are negative PMFSH Past Medical History 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 or 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 (wirer) Alcohol intake: never Patient Tobacco Use Status: Never used Tobacco Advance Directives: Yes Advance Directives on File: Yes Advance Directives Date on File: 01/28/24 service: No Physical Exam Vital Signs: Vital Signs: Last Vital Signs Temp 98.0 F 11/05/25 02:52 Pulse 90 11/05/25 02:52 Resp 16 11/05/25 02:52 BP 144/73 H 11/05/25 02:52 Pulse Ox 95 11/05/25 02:52 O2 Del Method Room Air 11/05/25 02:52 BMI result Body Mass Index 30.6 CONSTITUTIONAL: The patient appears non-toxic, well nourished and in no acute distress. Vital signs as documented. HEAD: Atraumatic, normocephalic. EYES: EOMs grossly intact, pupils equal, conjunctiva clear, no exudate. ENT: Nares patent, no discharge. Airway patent, no audible stridor, visible mucosa is pink and moist without noted lesions. NECK: trachea is midline, no obvious masses or gross abnormalities. CHEST: Symmetric movement, normal appearance. LUNGS: Non-labored work of breathing. CARDIAC: No evidence of hypoperfusion. ABDOMEN: Nondistended, no obvious injury. : Deferred. EXTREMITIES: Moves all extremities spontaneously without reported pain. No obvious injury or deformity noted. NEURO: Alert and oriented x3, CN II-XII appear grossly intact. Cerebellar Functioning grossly intact. Speech clear and appropriate. PSYCH: normal affect, appropriate eye contact, fluid speech, with appropriate response to questioning. No reported suicidality or homicidality. SKIN: Warm, dry, color appropriate. No rashes or lesions noted. Medical Decision Making Medical Decision Making MDM Narrative: 4:21 AM 11/05/2025 (Papito RUIZ): gear cutting machine set up operator present for the entire encounter. The patient is an 80-year-old female presenting to the ED for the 4th time in 3 days seeking benzodiazepines for chronic anxiety. The patient states she ran out of her prescribed clonazepam approximately one week ago. She reports that her prescribing physician did not send the refill to the pharmacy on or Friday and is not available until Friday. The patient states that without clonazepam she experiences marked anxiety, with subjective racing palpitations and elevated blood pressure. Today she again arrived by ambulance requesting a prescription for clonazepam ?until Friday?, and/or a single clonazepam tablet. She reports willingness to sign a letter that she will follow up with the her PCP for additional medications if she receives a prescription today. On exam the patient is well-appearing, in no acute distress, vital signs show no malignant hypertension requiring IV medication management, and no tachycardia. The patient is resting comfortably, using phone, with no evidence of anxiety. When patient was informed, as she has been informed on previous visits, that there was no indication of emergent anxiolytics and she would not be recieving a refill prescription, the patient began bartering and asked multiple times to recieve at least one pill today. The patient's presentation is highly concerning for malingering for benzodiazepine dependence. The patient was reassured that there is no evidence of an emergent condition and that no benzodiazepine would be given in the ED. She was advised to contact her prescribing physician on Friday for refill. Admission/Observation Consideration of admission/observation: Escalation of care including admission/observation considered External Record Review External record reviewed: Outpatient record and Prior outpatient labs Discharge Plan Discharge Clinical Impression: Chronic anxiety Patient Disposition: Home, Self-Care Instructions: Anxiety (ED) Additional Instructions: You were seen in our Emergency Department today seeking treatment of your chronic anxiety. Your exam was unremarkable, and your vital signs revealed a normal blood pressure and normal heart rate. As you have been previously informed, the emergency department is not an appropriate avenue by which to obtain single doses or refills of your anxiety medication. It is important after your visit that you follow up with either your behavioral health provider or a primary care doctor for re-evaluation and prescription refill/management. If you have trouble finding a therapist you can reach out to [address] [phone] Prescriptions: No Action metoprolol succinate 50 mg tablet extended release 24 hr 50 mg PO DAILY Qty: 90 2RF omeprazole 20 mg Tablet,Delayed Release (Dr/Ec) 20 mg PO DAILY@0630 meclizine 12.5 mg tablet 12.5 mg PO TID PRN (Reason: dizziness or vertigo) Qty: 30 0RF meclizine 25 mg tablet 25 mg PO BID PRN (Reason: dizziness) Qty: 14 0RF meclizine 25 mg tablet 25 mg PO BID PRN (Reason: dizziness) Qty: 14 0RF trazodone 50 mg tablet 50 mg PO BEDTIME ferrous sulfate [FeroSul] 325 mg (65 mg iron) tablet 325 mg PO DAILY bisacodyl 5 mg tablet,delayed release (DR/EC) 5 mg PO DAILY PRN (Reason: constipation) rosuvastatin 20 mg tablet 20 mg PO BEDTIME aspirin 81 mg tablet,delayed release (DR/EC) 81 mg PO QAM multivitamin Tablet 1 tab PO QAM melatonin 10 mg tablet extended release 10 mg PO BEDTIME PRN (Reason: Insomnia) cholecalciferol (vitamin D3) 25 mcg (1,000 unit) tablet 25 mcg PO DAILY acetaminophen 500 mg tablet 500 mg PO Q8H PRN (Reason: pain) docusate sodium [Colace] 100 mg capsule 200 mg PO BID Qty: 20 0RF ibuprofen 200 mg tablet 200 mg PO Q6H PRN (Reason: pain) Qty: 20 0RF ketotifen fumarate 0.025 % (0.035 %) drops 1 drp ophthalmic (eye) BID PRN (Reason: allergies) mirtazapine 45 mg tablet 45 mg PO BEDTIME clonazepam 0.5 mg tablet 0.5 mg PO TID hydroxyzine HCl 25 mg tablet 10 mg PO DAILY PRN (Reason: anxiety) fluticasone propionate [Flonase Allergy Relief] 50 mcg/actuation spray,suspension 2 spray intranasal DAILY PRN (Reason: Allergic Symptoms) Rx Instructions: administer into each nostril apixaban 5 mg tablet 5 mg PO BID valsartan 160 mg tablet 160 mg PO QPM meclizine 25 mg tablet 25 mg PO BID PRN (Reason: dizziness) Qty: 14 0RF sertraline 100 mg tablet 100 mg PO DAILY amlodipine 10 mg tablet 10 mg PO DAILY Print Language: Uzbek
--- OUTSIDE RECORDS SUMMARY | 2025-11-05 03:21 | XMS_ITS | Encounter Summary ---
Author Organization [employer] Address [address] [place] [address] Care Team Providers Care Airport Operations Crew Member Name Role Phone Name, Nitin PIKE Primary Care Provider [phone] Reason for Visit * Reason Comments Med Refill Encounter Details Date Type Department Care Team (Late st Contact Info) Description 08/17/2025 Refill [facility] [address] [place], [place] [phone] Miryam Riley NP [address] [place], [place] [phone] Hypertension, unspecified type Social History Tobacco Use [...] 11/07/2025 10:00 AM EST Office Visit [facility] [address] [place] [phone] NameNitin MD [address] [place] [address] documented as of this encounter Visit Diagnoses Diagnosis Hypertension, unspecified type documented in this encounter Additional Health Concerns Assessment Noted Time PHQ-9 Depression Total Score: 3 04/29/20 25 9:41 AM EDT documented as of this encounter Care Teams Airport Operations Crew Member Relationship Specialty Start Date End Date Name, MD Nitin [address] [place] [id number] PCP - General Family Medicine 08/26/17 [facility] 09/01/24 documented as of this encounter
--- OUTSIDE RECORDS SUMMARY | 2025-11-05 03:21 | XMS_ITS | Encounter Summary ---
Author Organization [employer] Address [address] [place] [address] Care Team Providers Care Cash Posting Representative Name Role Phone Name, Nitin PIKE Primary Care Provider [phone] Encounter Details Date Type Department Care Team ([facility] Contact Info) Description 01/06/2023 Orders Only [facility] [address] [place], [place] [phone] Lisha Kelly LPN Social History Tobacco Use [...] Description 11/07/2025 10:00 AM EST Office Visit [facility] [address] [place], [place] [phone] NameNitin MD [address] [place] [address] documented as of this encounter Visit Diagnoses Not on filedocumented in this encounter Care Teams Cash Posting Representative Relationship Specialty Start Date End Date NameNitin MD [address] [place] [address] PCP - General Family Medicine 08/26/17 [facility] 09/01/24 documented as of this encounter
--- OUTSIDE RECORDS SUMMARY | 2025-11-05 03:21 | XMS_ITS | Clinical Summary ---
Author Organization [employer] Address [address] [place] [address] [address] [place] [address] Care Team Providers Care Research Neuropsychologist Name Role Phone Name, Nitin PIKE Primary Care Provider [phone] Allergies Active Allergy Reactions Criticality Noted Date [...] MOUTH EVERY 8 HOURS NEEDED FOR PAIN (ITALIAN LABEL) 90 tablet 025 Active omeprazole (PriLOSEC) [...] EST 2024 Diclofenac Sodium 1 % gelIndications:Ac levelock right-sided low back pain without sciatica Apply [...] EST): Symptomatic measures Rest Major neurocognitive disorder ([facility]) 11/02/20 Acute otitis media 04/22/2024 Diarrhea [...] chronic kidney disease ([facility]) 2022 Headache 01/02/2023 Overview (12/18/2023): Last [...] because it calms her down. I called [facility] pharmacy to attempt a med rec [...] left I received a call from the [facility] pharmacy instructing me that she was [...] Type Department Care Team Description 10/20/2025 Refill [facility] [address] [place] [address] Name, MD Nitin 10/19/2025 Refill [facility] [address] [place] [address] Name, MD Nitin Chronic constipation; Vitamin D deficiency 10/03/2025 Orders Only GENERIC EXTERNAL DATA DEPARTMENT Provider, Generic External Data 09/29/2025 8:40 AM EST Office Visit [facility] [address] [place] [address] Zach Javier MD Acute right-sided low back pain without sciatica (Primary Dx); Vertigo 09/29/2025 Travel 09/28/2025 Refill [facility] [address] [place] [address] Nitin Echevarria MD Vitamin D deficiency 09/27/2025 Refill [facility] [address] [place] [address] Nitin Echevarria MD 09/22/[address] [address] Nitin Echevarria MD Nurse Triage 09/22/2025 Orders Only GENERIC EXTERNAL DATA DEPARTMENT Provider, Generic External Data 09/21/[address] [address] Nitin Echevarria MD Request For Order(s); Referral 09/19/2025 Refill [facility] [address] [place] [address] Nitin Echevarria MD 09/19/2025 Orders Only GENERIC EXTERNAL DATA DEPARTMENT Provider, Generic External Data 09/18/2025 Orders Only [facility] External Provider, [facility] 09/17/2025 Orders Only GENERIC EXTERNAL DATA DEPARTMENT Provider, Generic External Data 09/09/[address] [address] Thea Warren FNP Results 09/06/2025 1:30 PM EDT Office Visit [address] [address] Thea Warren FNP Acute pain of left knee (Primary Dx); Urinary frequency; Acute cystitis without hematuria 09/06/2025 Orders Only [address] [address] Thea Warren FNP 09/06/2025 Travel 09/05/[address] [address] Nitin Echevarria MD Chart Prep 09/03/2025 Orders Only GENERIC EXTERNAL DATA DEPARTMENT Provider, Generic External Data 08/30/2025 Patient Outreach [facility] [address] [place] [address] Nitin Echevarria MD Pre-visit Planning ([facility] unable to reach) 08/24/2025 Telephone [facility] [address] [place] [address] Nitin Echevarria MD Referral 08/24/2025 Telephone [facility] [address] [place] [address] Nitin Echevarria MD Verbal Order 08/22/2025 Orders Only [facility] External Provider, [facility] 08/18/2025 Orders Only GENERIC EXTERNAL DATA DEPARTMENT Provider, Generic External Data 08/17/2025 Refill [facility] [address] [place] [address] Nitin Echevarria MD 08/17/2025 Refill [facility] [address] [place] [address] Miryam Riley NP Hypertension, unspecified type 08/15/2025 Refill [facility] [address] [place] [address] Nitin Echevarria MD Heartburn 08/14/2025 Refill [facility] [address] [place] [address] Nitin Echevarria MD Heartburn; Vitamin D deficiency 08/09/2025 11:15 AM EDT Office Visit [facility] [address] [place] [address] Nitin Echevarria MD Generalized anxiety disorder with [...] Description 11/07/2025 10:00 AM EST Office Visit [facility] [address] [place] [address] Name, MD Nitin [address] [place] [address] Health Maintenance Due Date Last Done Comments [...] time period is included. Color Urine Yellow [facility] Appearance Urine Clear [facility] PH 6.0 5.0 - 9.0 [facility] Glucose Urine UA Negative Negative mg/dL [facility] Urine Blood Negative Negative [facility] Specific [place] - Urine 1.015 1.005 - 1.025 [facility] Urine Protein Negative Neg-Trace mg/dL [facility] Urine Ketones Negative Negative mg/dL [facility] Nitrite Urine Negative Negative [facility] Leukocyte Esterase Urine Moderate (2+)(A) Negative [facility] RBC Urine 0-2 0 - 2 /HPF [facility] Urine WBC 11-20(A) 0 - 5 /HPF [facility] Urine Squamous Epithelial Cell 0-2 0 - 2 /HPF [facility] Urine Bacteria None Seen None Seen [facility] Hyaline Casts, Urine 0-2 0 - 2 /LPF [facility] 10/03/2025 11:1 8 PM EST 10/03/2025 11:21 PM EST Narrative [facility] - 10/03/2025 11:29 PM EST [id number], Clean Catch Generic External Data Provider LAB URINE ORDERAB LES Final Result Performing Organization Address [facility] Co de Phone Number [facility] [address] [place] [phone] * Culture, Urine, Routine (10/03/2025 12:00 AM EST) Only the most recent of3 resultswithin the time period is included. Urine Urine specimen obtained by clean catch procedure / Unknown 10/03/2025 10/03/2025 Comment:UACC Narrative [facility] - 10/05/2025 11:28 AM EST Urine Culture Report Result Urine Culture 10,000 to 50,000 cfu/ml Urine Culture Mixed bacterial jann characteristic of Urine Culture urogenital contamination. Specimen Source: Urine clean catch Generic External Data Provider LAB MICROBIOLOGY - GENERAL ORDERABLES Final Result Performing Organization Address [facility] Co de Phone Number [facility] [address] [place] [phone] * (ABNORMAL) CBC auto differential (09/22/2025 7:21 AM EST) Only the most recent of3 resultswithin the time period is included. White Blood Count 6.6 4.8 - 10.8 X10*3/uL [facility] Red Blood Count 4.39 4.20 - 5.50 X10*6/uL [facility] Hemoglobin 12.2 12.0 - 16.0 g/dl [facility] Hematocrit 37.3 37.0 - 47.0 % [facility] Mean Corpuscular Volume 85.0 80.0 - 98.0 fL [facility] Mean Corpuscular Hemoglobin 27.8 27.0 - 33.0 pg [facility] Mean Corpuscular HGB Conc 32.7 31.0 - 35.0 g/dl [facility] Red Cell Distribution Width 13.8 11.0 - 16.0 % [facility] Platelet Count 295 160 - 400 X10*3/uL [facility] Mean Platelet Volume 8.1(L) 9.4 - 12.3 fL [facility] Neutrophils Percent Auto 70.6 45 - 73 % [facility] Imm Gran Pct Auto 0.5(H) 0.0 - 0.4 % [facility] Lymphocytes Percent Auto 18.3(L) 20 - 40 % [facility] Monocytes Percent Auto 9.4 2 - 11 % [facility] Eosinophils Percent Auto 0.6 0 - 4 % [facility] Basophils Percent Auto 0.6 0 - 2 % [facility] NRBC Pct Auto 0.0 0.0 - 0.2 /100WBC [facility] Neutrophils Absolute Auto 4.7 2.0 - 8.3 x10*3/uL [facility] Imm Gran Abs Auto 0.03 0.00 - 0.03 X10*3/uL [facility] Lymphocytes Absolute Auto 1.2 1.2 - 4.9 X10*3/uL [facility] Monocytes Absolute Auto 0.6 0.1 - 1.2 X10*3/uL [facility] Eosinophils Absolute Auto 0.0 0.0 - 0.4 X10*3/uL [facility] Basophils Absolute Auto 0.0 0.0 - 0.2 X10*3/uL [facility] NRBC Abs Auto 0.000 0.0 - 0.012 X10*3/uL [facility] 09/22/2025 7:21 AM EST 09/22/2025 7:23 AM EST us Generic External Data Provider LAB BLOOD ORDERAB LES Final Result [facility] [address] [place] [address] [phone] * (ABNORMAL) Basic Metabolic Panel (09/22/2025 7:21 AM EST) Only the most recent of2 resultswithin the time period is included. Sodium 137 135 - 145 mmol/L [facility] Potassium 4.7 3.3 - 5.1 mmol/L [facility] Chloride 100 96 - 108 mmol/L [facility] Carbon Dioxide 29 22 - 29 mmol/L [facility] Anion Gap 13 12 - 20 [facility] Urea Nitrogen (BUN) 18(H) 9 - 16 mg/dL [facility] Creatinine, Serum 0.85 0.5 - 1.4 mg/dL [facility] Creatinine Clr Calc Pharmacy 56.1 [facility] Comment:Provided height and weight: 162.56 cm,89.3 kg.eGFR (calculated from the MDRD study equation) and eCrCl(calculated from the Cockcroft-Gault equation) are based ondifferent parameters and may not yield comparable results.If eCrCl result is absurd, please check patient'sheight/weight. Estimated Glomerular Filt Rate >60 [facility] Comment:Chronic Kidney Disea se: Estimated GFR < 60 mL/min/1.63n8Hhngnx Kidney Disease: Estimated GFR < 15 mL/min/1.73m2 Glucose 105 60 - 115 mg/dL [facility] Calcium 10.0 8.4 - 10.2 mg/dL [facility] 09/22/2025 7:21 AM EST 09/22/2025 7:23 AM EST us Generic External Data Provider LAB BLOOD ORDERAB LES Final Result [facility] [address] [place] [address] [phone] * CT Head w/o Contrast (09/19/2025 3:43 AM EST) Only the most recent of2 resultswithin the time period is included. Anatomical Region Laterality Modality Head, Neck Computed Tomogra phy 09/19/2025 3:43 AM EST Narrative 09/19/2025 3:45 AM EST [address] [address] [address] Scan Report Signed Patient: Noreen Wing MR#: [id number] : 1945 Acct:[id number] Age/Sex: 79 / F ADM Date: 09/18/25 Loc: HO.ED Attending Dr: Ordering Physician: Marium Ny DO Date of Service: 09/19/25 Procedure(s): CT head/brain wo IV con Accession Number(s): [id number] cc: Marium Ny DO; [facility] Report Number: [id number]: Total DLP = 747.02 mGy-cm Reason for [...] in OV> 09/19/25343 DD/ 2 TD/TT: 09/19/25342 Community Living Instructor: Procedure Note Donotuseinterpreter, Image - 09/19/[address] [address] [address] Scan Report Signed Patient: Noreen WingMR#: [id number] : 1945cct:[id number] Age/Sex: 79 / FADM Date: 09/18/25 Loc: HO.ED Attending Dr: Ordering Physician: Marium Ny DO Date of Service: 09/19/25 Procedure(s): CT head/brain wo IV con Accession Number(s): [id number] cc: Marium Ny DO; [facility] Report Number: [id number]: Total DLP = 747.02 mGy-cm Reason for [...] in OV> 09/19/25343 DD/ 2 TD/TT: 09/19/25342 Community Living Instructor: [facility] External Provider IMG CT PROCEDURES Edited Result - Final * CT Cervical Spine w/o Contrast (09/19/2025 3:42 AM EST) Only the most recent of2 resultswithin the time period is included. Anatomical Region Laterality Modality Spine, C-spine Computed Tomogra phy 09/19/2025 3:42 AM EST Narrative 09/19/2025 3:43 AM EST [address] [address] [address] Scan Report Signed Patient: Noreen Wing MR#: [id number] : 1945 Acct:[id number] Age/Sex: 79 / F ADM Date: 09/18/25 Loc: HO.ED Attending Dr: Ordering Physician: Marium Ny DO Date of Service: 09/19/25 Procedure(s): CT cervical spine wo IV con Accession Number(s): [id number] cc: Marium Ny DO; [facility] Report Number: [id number]: Total DLP = 428.77 mGy-cm Reason for Exam: fall, head trauma CLINICAL HISTORY: fall, head trauma CT cervical spine without contrast Comparison: CT/SR - CT CERVICAL SPINE WO IV CON - 09/03/25 13:35 EDT Findings: The alignment of the cervical spine is normal. There is no fracture. There is latq-hw-rirwqmxg C5-6 degenerative disc disease. There are posterior osteophytes at C5-6 probably causing mefv-bw-nkslaxfg central canal stenosis. There is multilevel facet [...] in OV> 09/19/25341 DD/ 1 TD/TT: 09/19/25341 Community Living Instructor: Procedure Note Donotuseinterpreter, Image - 09/19/[address] [place] [address] [address] Scan Report Signed Patient: Noreen WingMR#: [id number] : 1945cct:[id number] Age/Sex: 79 / FADM Date: 09/18/25 Loc: HO.ED Attending Dr: Ordering Physician: Marium Ny DO Date of Service: 09/19/25 Procedure(s): CT cervical spine wo IV con Accession Number(s): [id number] cc: Marium Ny DO; [facility] Report Number: [id number]: Total DLP = 428.77 mGy-cm Reason for Exam: fall, head trauma CLINICAL HISTORY: fall, head trauma CT cervical spine without contrast Comparison: CT/SR - CT CERVICAL SPINE WO IV CON - 09/03/25 13:35 EDT Findings: The alignment of the cervical spine is normal. There is no fracture. There is xxvt-rw-vgflhxzu C5-6 degenerative disc disease. There are posterior osteophytes at C5-6 probably causing dfkj-ni-ncchirhq central canal stenosis. There is multilevel facet [...] in OV> 09/19/25341 DD/ 1 TD/TT: 09/19/25341 Community Living Instructor: [facility] External Provider IMG CT PROCEDURES Edited Result - Final * High Sensitivity Troponin I (09/19/2025 12:26 AM EST) Only the most recent of2 resultswithin the time period is included. TROPONIN I HIGH SENSITIVITY <2.7 <3.5 - 17.0 ng/L [facility] Comment:The Mckeon high sens itivity Troponin-I results should beused in conjunction with other diagnostic information suchas ECG, clinical observations and information, and patientsymptoms to aid in the diagnosis of IL. 09/19/2025 12:2 6 AM EST 09/19/2025 12:28 AM EST Generic External Data Provider LAB BLOOD ORDERAB LES Final Result [facility] [address] [place] [address] [phone] * Prothrombin Time-INR (09/19/2025 12:26 AM EST) Prothrombin Time 12.5 11.2 - 13.5 SEC [facility] INTERNATIONAL NORM RATIO 1.0 0.9 - 1.1 [facility] Comment:INTERNATIONAL NORMAL IZED RATIO (INR) REFERENCE [...] Provider LAB BLOOD ORDERAB LES Final Result [facility] [address] [place] [phone] * (ABNORMAL) Comprehensive Metabolic Panel (09/19/2025 12:26 AM EST) Only the most recent of2 resultswithin the time period is included. Sodium 136 135 - 145 mmol/L [facility] Potassium 4.1 3.3 - 5.1 mmol/L [facility] Chloride 101 96 - 108 mmol/L [facility] Carbon Dioxide 25 22 - 29 mmol/L [facility] Anion Gap 14 12 - 20 [facility] Urea Nitrogen (BUN) 33(H) 9 - 16 mg/dL [facility] Creatinine, Serum 0.99 0.5 - 1.4 mg/dL [facility] Creatinine Clr Calc Pharmacy 45.4 [facility] Comment:Provided height and weight: 157.48 cm,86.183 kg.eGFR (calculated from the MDRD study equation) and eCrCl(calculated from the Cockcroft-Gault equation) are based ondifferent parameters and may not yield comparable results.If eCrCl result is absurd, please check patient'sheight/weight. Estimated Glomerular Filt Rate 54 [facility] Comment:Chronic Kidney Disea se: Estimated GFR < 60 mL/min/1.55w9Qqbvjx Kidney Disease: Estimated GFR < 15 mL/min/1.73m2 Glucose 108 60 - 115 mg/dL [facility] Calcium 8.9 8.4 - 10.2 mg/dL [facility] Bilirubin, Total 0.3 0.0 - 1.0 mg/dL [facility] Aspartate Amino Transferase 26 5 - 31 U/L [facility] Alanine Aminotransferase 14 0 - 31 U/L [facility] Total Protein 7.6 6.5 - 8.0 g/dL [facility] Albumin Level 4.1 3.5 - 5.0 g/dL [facility] Alkaline Phosphatase 92 39 - 117 U/L [facility] 09/19/2025 12:2 6 AM EST 09/19/2025 12:28 AM EST us Generic External Data Provider LAB BLOOD ORDERAB LES Final Result Performing Organization Address City/State/[facility] de Phone Number [facility] [address] [place] [phone] * XR Knee 4+ Views Left (09/18/2025 3:36 PM EST) Only the most recent of2 resultswithin the time period is included. Anatomical Region Laterality Modality Lower Extremities, Knee Left Radiogra phic Imaging 09/18/2025 3:36 PM EST Narrative 09/18/2025 3:39 PM EST [address] [address] XRay Report Signed Patient: Noreen Wing MR#: [id number] : 1945 Acct:[id number] Age/Sex: 79 / F ADM Date: 09/18/25 Loc: HO.ED Attending Dr: Ordering Physician: Cuco Amador Date of Service: 09/18/25 Procedure(s): XR knee LT 4V Accession Number(s): [id number] cc: Cuco Amador; Name,Nitin PIKE Reason for [...] in OV> 09/18/258 DD/ 35 TD/TT: 09/18/251535 Community Living Instructor: Procedure Note Donotuseinterpreter, Image - 09/18/[address] [address] XRay Report Signed Patient: Noreen WingMR#: [id number] : 3Acct:[id number] Age/Sex: 79 / FADM Date: 09/18/25 Loc: .ED Attending Dr: Ordering Physician: Cuco Amador Date of Service: 09/18/25 Procedure(s): XR knee LT 4V Accession Number(s): [id number] cc: Cuco Amador; Name,Nitin PIKE Reason for [...] in OV> 09/18/258 DD/ 35 TD/TT: 09/18/251535 Community Living Instructor: [facility] External Provider IMG XR PROCEDURES Edited Result - Final * Glucose, Whole Blood (09/17/2025 7:24 AM EST) Glucose, Whole Blood 98 60 - 115 mg/dL [facility] Comment:METER #: [id number] 09/17/2025 7:24 AM EST 09/17/2025 7:28 AM EST Generic External Data Provider LAB BLOOD ORDERAB LES Final Result Performing Organization Address [facility]/ZIP Co de Phone Number [facility] [address] [place] [phone] * POCT Urinalysis (09/06/2025 1:32 PM [...] Random) 09/06/2025 1:32 PM EDT Thea Warren [employer] POINT OF CARE TEST ENTER/EDIT ORDERABLES Final Result * Magnesium (09/03/2025 2:08 PM EDT) Magnesium 2.0 1.6 - 2.6 mg/dL [facility] 09/03/2025 2:08 PM EDT 09/03/2025 2:12 PM EDT us Generic External Data Provider LAB BLOOD ORDERAB LES Final Result Performing Organization Address [facility]/ZIP Co de Phone Number [facility] [address] [place] [phone] * POCT HGB A1C (01/10/2025 11:02 AM EST) Hemoglobin A1C 5.1 4.0 - 6.0 % QC Media Lot # [id number] Lot# Expiration Date ,552,476 Blood 01/10/2025 11:0 2 AM EST Nitin [...] LDL-C. Jack RAYO et al. JITENDRA. 2013;310(19): 0313-7970 (http://education.[employer]/faq/JNR107) Non-HDL Cholesterol 88 <130 mg/dL (calc) CONVERTED [...] Most Recently Relevant to Health Maintenance Insurance [employer] (HMO D-SNP) [place] [id number] Care Teams Research Neuropsychologist Relationship Specialty Start Date End Date Name, MD Nitin [address] [place] [address] PCP - General Family Medicine 08/26/17 [facility] 09/01/24
--- OUTSIDE RECORDS SUMMARY | 2025-11-05 03:21 | XMS_ITS | Encounter Summary ---
Author Organization [employer] Address [address] [facility] [address] [place] [address] Care Team Providers Care Air Drill Operator Name Role Phone Name, Nitin PIKE Primary Care Provider [phone] Reason for Visit * Reason Comments Med Refill Encounter Details Date Type Department Care Team (Late st Contact Info) Description 08/16/2024 Refill [facility] [address] [place], [place] [phone] Name, MD Nitin [address] [place] [address] Heartburn Social History Tobacco Use Types Packs/Day [...] 11/07/2025 10:00 AM EST Office Visit [facility] [address] [place] [phone] NameNitin MD [address] [place] [address] documented as of this encounter Visit Diagnoses Diagnosis Heartburn documented in this encounter Additional Health Concerns Assessment Noted Time PHQ-9 Depression Total Score: 6 02/13/20 24 9:14 AM EDT documented as of this encounter Care Teams Air Drill Operator Relationship Specialty Start Date End Date NameNitin MD [address] [place] [address] PCP - General Family Medicine 08/26/17 [facility] 09/01/24 documented as of this encounter
--- OUTSIDE RECORDS SUMMARY | 2025-11-05 03:21 | XMS_ITS | Encounter Summary ---
Author Organization [employer] Address [address] [facility] [address] [place] [address] Care Team Providers Care Hoop Driving Machine Operator Helper Name Role Phone Name, Nitin PIKE Primary Care Provider [phone] Reason for Visit * Reason Onset Date Comments FYI 01/21/2024 ER Follow-up 01/21/2024 Encounter Details Date Type Department Care Team ([facility] st Contact Info) Description 01/21/2024 Telephone [facility] [address] [place], [place] [phone] Name, MD Nitin [address] [place] [address] FYI; ER Follow-up Social History Tobacco Use [...] 01/21/2024 1:54 PM EDT Message from [facility] [place]. [facility] [place] sent to medical records. PCP does not rx Trazodone. Pt to f/u with psych prescriber. Pt is scheduled for f/u with pcp 02/13/24. * Telephone Encounter - Janette Huitron - 01/21/2024 9:45 AM EDT Tc from [facility] with [facility] ED calling in regards to pt. States pt was seen today for anxiety and is requesting trazodone. Will discharge pt with no medication change. Would also like to advise provider, pt was seen at [facility] on 01/17 for anxiety/insomnia as well documented in this encounter Plan of Treatment Upcoming Encounters Date Type Department Care Team (Late st Contact Info) Description 11/07/2025 10:00 AM EST Office Visit [facility] [address] [place] [address] Name, MD Nitin [address] [place] [address] documented as of this encounter Visit Diagnoses Not on filedocumented in this encounter Additional Health Concerns Assessment Noted Time PHQ-9 Depression Total Score: 12 023 9:37 AM EDT documented as of this encounter Care Teams Hoop Driving Machine Operator Helper Relationship Specialty Start Date End Date Name, MD Nitin [address] [place] [address] PCP - General Family Medicine 08/26/17 [facility] 09/01/24 documented as of this encounter
--- OUTSIDE RECORDS SUMMARY | 2025-11-05 03:21 | XMS_ITS | Encounter Summary ---
Author Organization [employer] Address [address] [facility] [address] [place] [address] Care Team Providers Care Gas Fitter Apprentice Name Role Phone Name, Nitin PIKE Primary Care Provider [phone] Reason for Visit * Reason Onset Date Comments Results 08/29/2023 Encounter Details Date Type Department Care Team ([facility] st Contact Info) Description 08/29/2023 Telephone [facility] [address] [place], [place] [phone] Name, MD Nitin [address] [place] [address] Results Social History Tobacco Use Types Packs/Day [...] 09/01/2023 11:51 AM EDT Pt evaluated in [facility] today and is scheduled with pcp 09/03/23. * Telephone Encounter - Janette Huitron - 08/29/2023 4:06 PM EDT Tc from pt requesting a call in regards to urine results. Please contact pt at [phone] (Amharic) documented in this encounter Plan of Treatment Upcoming Encounters Date Type Department Care Team (Late st Contact Info) Description 11/07/2025 10:00 AM EST Office Visit [facility] [address] [place] [phone] Name, MD Nitin [address] [place] [address] documented as of this encounter Visit Diagnoses Not on filedocumented in this encounter Additional Health Concerns Assessment Noted Time PHQ-9 Depression Total Score: 12 023 9:37 AM EDT documented as of this encounter Care Teams Gas Fitter Apprentice Relationship Specialty Start Date End Date Name, MD Nitin [address] [place] [address] PCP - General Family Medicine 08/26/17 [facility] 09/01/24 documented as of this encounter
--- OUTSIDE RECORDS SUMMARY | 2025-11-05 03:21 | XMS_ITS | Encounter Summary ---
Author Organization [employer] Address 75 [facility] 7t [place] [address] Care Team Providers Care Veterans' Counselor Name Role Phone Name, Nitin PIKE Primary Care Provider [phone] Reason for Visit * Reason Onset Date Comments Med Refill 11/08/2024 Encounter Details Date Type Department Care Team ([facility] st Contact Info) Description 11/08/[address] [facility] MEDICINE 230 [place], [place] [phone] Name, MD Nitin 230 [place] [address] Med Refill Social History Tobacco Use Types [...] 5 MG tablet To be sent to: [facility] - [place], [place] - [address] [facility] documented in this encounter Plan of Treatment Upcoming Encounters Date Type Department Care Team ([facility] st Contact Info) Description 11/07/2025 10:00 AM EST Office Visit [facility] MEDICINE 230 [place] [address] Name, MD Nitin 230 [place] [address] documented as of this encounter Visit Diagnoses Not on filedocumented in this encounter Additional Health Concerns Assessment Noted Time PHQ-9 Depression Total Score: 6 02/13/20 24 9:14 AM EDT documented as of this encounter Care Teams Veterans' Counselor Relationship Specialty Start Date End Date Name, MD Nitin 230 [place] [address] PCP - General Family Medicine 08/26/17 [facility] 09/01/24 documented as of this encounter
--- OUTSIDE RECORDS SUMMARY | 2025-11-05 03:21 | XMS_ITS | Encounter Summary ---
Author Organization [employer] Address 75 [facility] 7t [place] [address] Care Team Providers Care Vehicle Trimmer Name Role Phone Name, Nitin PIKE Primary Care Provider [phone] Reason for Visit * Reason Onset Date Comments Verbal Orders 12/15/2023 Encounter Details Date Type Department Care Team ([facility] st Contact Info) Description 12/15/2023 Telephone [facility] MEDICINE 230 [place], [place] [phone] Name, MD Nitin 230 [place] [address] Verbal Orders Social History Tobacco Use Types [...] 12:03 PM EST Tc from Josseline with [employer] requesting verbal order to see pt 2 times a week for 4 weeks for Occupational Therapy, please contact Josseline at [phone] documented in this encounter Plan of Treatment Upcoming Encounters Date Type Department Care Team (Late st Contact Info) Description 11/07/2025 10:00 AM EST Office Visit [facility] MEDICINE [address] [place] [address] Name, MD Nitin [address] [place] [address] documented as of this encounter Visit Diagnoses Not on filedocumented in this encounter Additional Health Concerns Assessment Noted Time PHQ-9 Depression Total Score: 12 023 9:37 AM EDT documented as of this encounter Care Teams Vehicle Trimmer Relationship Specialty Start Date End Date Name, MD Nitin [address] [place] [address] PCP - General Family Medicine 08/26/17 [facility] 09/01/24 documented as of this encounter
--- OUTSIDE RECORDS SUMMARY | 2025-11-05 03:21 | XMS_ITS | Encounter Summary ---
Author Organization [employer] Address 75 [facility] 7[address] [place] [address] Care Team Providers Care Dolphin Researcher Name Role Phone Name, Nitin PIKE Primary Care Provider [phone] Reason for Visit * Reason Comments Med Refill Encounter Details Date Type Department Care Team ([facility] st Contact Info) Description 06/28/2024 Refill [facility] 230 [place], [place] [phone] Mel Anguiano FNP [address] [place] [address] Social History Tobacco Use Types Packs/Day Years [...] Office Visit [facility] MEDICINE [address] [place] [address] Name, MD Nitin 230 [place] [address] documented as of this encounter Visit Diagnoses Not on filedocumented in this encounter Additional Health Concerns Assessment Noted Time PHQ-9 Depression Total Score: 6 02/13/20 24 9:14 AM EDT documented as of this encounter Care Teams Dolphin Researcher Relationship Specialty Start Date End Date Name, MD Nitin [address] [place] [address] PCP - General Family Medicine 08/26/17 [facility] 09/01/24 documented as of this encounter
--- OUTSIDE RECORDS SUMMARY | 2025-11-05 03:21 | XMS_ITS | Encounter Summary ---
Author Organization [employer] Address 75 [facility] 7t [place] [address] Care Team Providers Care Lighter Name Role Phone Name, Nitin PIKE Primary Care Provider [phone] Encounter Details Date Type Department Care Team ([facility] Contact Info) Description 08/08/[address] [facility] MEDICINE [address] [place] [address] [phone] Name, MD Nitin [address] [place] [address] [phone] Social History Tobacco Use Types Packs/Day Years [...] Description 11/07/2025 10:00 AM EST Office Visit [facility] MEDICINE [address] [place] [address] [phone] Name, MD Nitin [address] [place] [address] [phone] documented as of this encounter Visit Diagnoses Not on filedocumented in this encounter Additional Health Concerns Assessment Noted Time PHQ-9 Depression Total Score: 12 023 9:37 AM EDT documented as of this encounter Care Teams Lighter Relationship Specialty Start Date End Date Name, MD Nitin 230 [place] [address] PCP - General Family Medicine 08/26/17 [facility] 09/01/24 documented as of this encounter
--- OUTSIDE RECORDS SUMMARY | 2025-11-05 03:21 | XMS_ITS | Encounter Summary ---
Author Organization [employer] Address 75 [facility] 7[address] [place] [address] Care Team Providers Care Rn Physician Office Name Role Phone Name, Nitin PIKE Primary Care Provider [phone] Encounter Details Date Type Department Care Team (Late st Contact Info) Description 11/06/2022 Orders Only [facility] MED & PEDS [address] [place], [place] [phone] Lisha Kelly LPN Social History Tobacco Use [...] EST Office Visit [facility] MEDICINE 230 [place] [address] NameNitin MD 230 [place] [address] documented as of this encounter Visit Diagnoses Not on filedocumented in this encounter Care Teams Rn Physician Office Relationship Specialty Start Date End Date Nitin Echevarria MD 230 [place] [address] PCP - General Family Medicine 08/26/17 [facility] 09/01/24 documented as of this encounter
--- OUTSIDE RECORDS SUMMARY | 2025-11-05 03:21 | XMS_ITS | Encounter Summary ---
Author Organization [employer] Address 75 [facility] 7t [place] [address] Care Team Providers Care Freight Dispatcher Name Role Phone Name, Nitni PIKE Primary Care Provider [phone] Reason for Visit * Reason Onset Date Comments ER Follow-up 05/31/2024 Encounter Details Date Type Department Care Team ([facility] Contact Info) Description 05/31/2024 Telephone [facility] MEDICINE 230 [place], [place] [phone] Name, MD Nitin 230 [place] [address] ER Follow-up Social History Tobacco Use Types [...] 05/31/2024 1:36 PM EDT T/C to Pat ([facility]) [phone] for below message, no answer. LVM to call back on [phone]. * Telephone Encounter - Melany Santos RN - 05/31/2024 1:32 PM EDT DAVID T/C to pt. Through [employer] id - [id number] for below message, pt. Had recent fall and ED visit at [facility]. RN will request GRACE piedra from [facility]. Pt. Is doing good, states I am tired andsleeping. Pt. Dose not has any question or concern right now. Pt. Already has HDF apt. Schedule on 06/10/2024. Pt. Advised to give call to [facility] if any questions or concerns. Pt. Verbally agreed and understood. Please review and advise if needed. * Telephone Encounter - Adithya Solorzano - 05/31/2024 12:50 PM EDT Patient calling to report ED visit on : Date: 05/26 Hospital: [facility] Seen for: Fall, Back Pain Pat [...] Visit [facility] MEDICINE [address] [place] [address] Name, MD Nitin [address] [place] [address] documented as of this encounter Visit Diagnoses Not on filedocumented in this encounter Additional Health Concerns Assessment Noted Time PHQ-9 Depression Total Score: 6 02/13/20 24 9:14 AM EDT documented as of this encounter Care Teams Freight Dispatcher Relationship Specialty Start Date End Date Name, MD Nitin [address] [place] [address] PCP - General Family Medicine 08/26/17 [facility] 09/01/24 documented as of this encounter
--- OUTSIDE RECORDS SUMMARY | 2025-11-05 03:21 | XMS_ITS | Encounter Summary ---
Author Organization [employer] Address 75 [facility] 7t [place] [address] Care Team Providers Care Contract Administration Specialist Name Role Phone Name, Nitin PIKE Primary Care Provider [phone] Reason for Visit * Reason Comments Med Refill Encounter Details Date Type Department Care Team (Late st Contact Info) Description 01/09/2025 Refill [facility] 230 [place], [place] [phone] Name, MD Nitin 230 [place] [address] Hypertension, unspecified type Social History Tobacco Use [...] Office Visit [facility] MEDICINE [address] [place] [address] NameNitin MD [address] [place] [address] documented as of this encounter Visit Diagnoses Diagnosis Hypertension, unspecified type documented in this encounter Additional Health Concerns Assessment Noted Time PHQ-9 Depression Total Score: 6 02/13/20 9:14 AM EDT documented as of this encounter Care Teams Contract Administration Specialist Relationship Specialty Start Date End Date NameNitin MD [address] [place] [address] PCP - General Family Medicine 08/26/17 [facility] 09/01/24 documented as of this encounter
--- OUTSIDE RECORDS SUMMARY | 2025-11-05 03:21 | XMS_ITS | Encounter Summary ---
Author Organization [employer] Address 75 [facility] 7t [place] [address] Care Team Providers Care Employee Relation Manager Name Role Phone Name, Nitin PIKE Primary Care Provider [phone] Reason for Visit * Reason Onset Date Comments Referral 08/24/2025 Encounter Details Date Type Department Care Team ([facility] st Contact Info) Description 08/24/2025 Telephone [facility] MEDICINE 230 [place], [place] [phone] Name, MD Nitin 230 [place] [address] Referral Social History Tobacco Use Types Packs/Day [...] DATE: 09/21/25 TIME: 10 am Facility Name: [facility] PT Type of Specialist: Physical therapy Facility Phone # : [phone] Fax #: [phone] documented in this encounter Plan of Treatment Upcoming Encounters Date Type Department Care Team (Late st Contact Info) Description 11/07/2025 10:00 AM EST Office Visit [facility] MEDICINE 230 [place], [place] [phone] Name, MD Nitin [address] [place] [address] documented as of this encounter Visit Diagnoses Not on filedocumented in this encounter Additional Health Concerns Assessment Noted Time PHQ-9 Depression Total Score: 3 04/29/20 9:41 AM EDT documented as of this encounter Care Teams Employee Relation Manager Relationship Specialty Start Date End Date Name, MD Nitin 230 [place] [address] PCP - General Family Medicine 08/26/17 [facility] 09/01/24 documented as of this encounter
--- OUTSIDE RECORDS SUMMARY | 2025-11-05 03:21 | XMS_ITS | Encounter Summary ---
Author Organization [employer] Address [address] [facility] 7t [place] [address] Care Team Providers Care Management Coordinator Name Role Phone Name, Nitin PIKE Primary Care Provider [phone] Reason for Visit * Reason Onset Date Comments ER Follow-up 05/04/2024 Encounter Details Date Type Department Care Team ([facility] Contact Info) Description 05/04/2024 Telephone [facility] MEDICINE 230 [place], [place] [phone] Name, MD Nitin 230 [place] [address] ER Follow-up Social History Tobacco Use Types [...] 11:01 AM EDT T/C to pt. Through [employer] id - [id number] for below message, No answer. LVM to call back [phone] . * Telephone Encounter - Adithya Solorzano - 05/04/2024 9:35 AM EDT Noreen with [facility] calling to report ED visit on : Date: 04/28 Hospital: [facility] Seen for: UTI, Nausea, Rash. Noreen advised will be forwarding message to team nurses. Please contact pt at [phone]. documented in this encounter Plan of Treatment Upcoming Encounters Date Type Department Care Team (Late st Contact Info) Description 11/07/2025 10:00 AM EST Office Visit [facility] MEDICINE 230 [place] [address] Name, MD Nitin [address] [place] [address] documented as of this encounter Visit Diagnoses Not on filedocumented in this encounter Additional Health Concerns Assessment Noted Time PHQ-9 Depression Total Score: 6 02/13/20 9:14 AM EDT documented as of this encounter Care Teams Management Coordinator Relationship Specialty Start Date End Date Name, MD Nitin [address] [place] [address] PCP - General Family Medicine 08/26/17 [facility] 09/01/24 documented as of this encounter
--- OUTSIDE RECORDS SUMMARY | 2025-11-05 03:21 | XMS_ITS | Clinical Summary ---
Author Organization [facility] Address [address] [place] [address] Phone Care Team Providers Care Boiler Out Name Role Phone Physician, No Pcp Primary [...] 3:15 AM EST [facility] Potassium 4.6 3.5 - 5.5 [...] LAB CHEMISTRY METHOD 09/22/2024 3:15 AM EST [facility] Albumin 4.2 3.2 - 5.0 g/dL LAB CHEMISTRY METHOD 09/22/2024 3:15 AM EST [facility] Total Bilirubin 0.4 0.0 - 1.4 mg/dL LAB CHEMISTRY METHOD 09/22/2024 3:15 AM EST [facility] Blood Venous blood specimen / Unknown Venipuncture / Unknown 09/22/2024 2:28 AM EST 09/22/2024 2:31 AM EST us Paul RUIZ LAB BLOOD ORDERABLES Final Resul t [facility] ([facility] [address] [place] [address], from Last 3 Months or Most Recently Relevant to Health Maintenance Insurance [facility] MEDIC[facility] Member Subscriber Plan / Payer (Ef fective 2021-Present) Name:Noreen Wing Relation to Subscriber:Self Name:Noreen Wing Payer ID:[id number] Group ID:[id number] Type:Not on file Address: [place] [address] [address] Care Teams Boiler Out Relationship Specialty Start Date End Date Physician, No Pcp PCP - General 09/22/24
--- OUTSIDE RECORDS SUMMARY | 2025-11-05 03:21 | XMS_ITS | Encounter Summary ---
Author Organization [employer] Address 75 [facility] 7[address] [place] [address] Care Team Providers Care Tubular Splitting Machine Tender Name Role Phone Name, Nitin PIKE Primary Care Provider [phone] Reason for Visit * Reason Onset Date Comments Call Back Request 03/14/2025 Encounter Details Date Type Department Care Team ([facility] st Contact Info) Description 03/14/2025 Telephone [facility] MEDICINE 230 [place], [place] [phone] Name, MD Nitin [address] [place] [address] Call Back Request Social History Tobacco Use [...] Office Visit [facility] MEDICINE [address] [place] [address] Name, MD Nitin [address] [place] [address] documented as of this encounter Visit Diagnoses Not on filedocumented in this encounter Additional Health Concerns Assessment Noted Time PHQ-9 Depression Total Score: 6 02/13/20 9:14 AM EDT documented as of this encounter Care Teams Tubular Splitting Machine Tender Relationship Specialty Start Date End Date Name, MD Nitin 230 [place] [address] PCP - General Family Medicine 08/26/17 [facility] 09/01/24 documented as of this encounter
--- OUTSIDE RECORDS SUMMARY | 2025-11-05 03:21 | XMS_ITS | Encounter Summary ---
Author Organization [employer] Address 75 [facility] 7[address] [place] [address] Care Team Providers Care Safety Companion Name Role Phone Name, Nitin PIKE Primary Care Provider [phone] Reason for Visit * Reason Onset Date Comments triage 12/18/2022 Encounter Details Date Type Department Care Team ([facility] st Contact Info) Description 12/18/2022 Telephone [facility] MEDICINE 230 [place], [place] [phone] Name, MD Nitin [address] [place] [address] triage Social History Tobacco Use Types Packs/Day [...] 12/18/2022 2:35 PM EST Called pt. Via [employer] certified nuclear medicine technologist [phone] Eduardo. Pt. States that she has a [...] phone. Please reach out to pt. With Anguillan speaking another time to see what her [...] EST Office Visit [facility] MEDICINE [address] [place] [address] Name, MD Nitin [address] [place] [address] documented as of this encounter Visit Diagnoses Not on filedocumented in this encounter Care Teams Safety Companion Relationship Specialty Start Date End Date Name, MD Nitin [address] [place] [address] PCP - General Family Medicine 08/26/17 [facility] 09/01/24 documented as of this encounter
--- OUTSIDE RECORDS SUMMARY | 2025-11-05 03:21 | XMS_ITS | Encounter Summary ---
Author Organization [employer] Address 75 [facility] 7t [place] [address] Care Team Providers Care Mechanic Driver Name Role Phone Name, Nitin PIKE Primary Care Provider [phone] Reason for Visit * Reason Comments Med Refill Encounter Details Date Type Department Care Team (Late st Contact Info) Description 07/25/2025 Refill [facility] MED & PEDS [address] [place], [place] [phone] Name, MD Nitin 230 [place] [address] Social History Tobacco Use Types Packs/Day Years [...] Office Visit [facility] MEDICINE [address] [place] [address] NameNitin MD [address] [place] [address] documented as of this encounter Visit Diagnoses Not on filedocumented in this encounter Additional Health Concerns Assessment Noted Time PHQ-9 Depression Total Score: 3 04/29/20 25 9:41 AM EDT documented as of this encounter Care Teams Mechanic Driver Relationship Specialty Start Date End Date NameNitin MD [address] [place] [address] PCP - General Family Medicine 08/26/17 [facility] 09/01/24 documented as of this encounter
--- OUTSIDE RECORDS SUMMARY | 2025-11-05 03:21 | XMS_ITS | Encounter Summary ---
Author Organization [employer] Address 75 [facility] 7[address] [place] [address] Care Team Providers Care Ab Initio Etl Developer Name Role Phone Name, Nitin PIKE Primary Care Provider [phone] Reason for Visit * Reason Comments Med Refill Encounter Details Date Type Department Care Team ([facility] st Contact Info) Description 04/01/2024 Refill [facility] MEDICINE 230 [place], [place] [phone] Name, MD Nitin 230 [place] [address] Rash Social History Tobacco Use Types Packs/Day [...] Description 11/07/2025 10:00 AM EST Office Visit [facility] MEDICINE [address] [place] [address] NameNitin MD [address] [place] [address] documented as of this encounter Visit Diagnoses Diagnosis Rash Rash and other nonspecific skin eruption documented in this encounter Additional Health Concerns Assessment Noted Time PHQ-9 Depression Total Score: 6 02/13/20 24 9:14 AM EDT documented as of this encounter Care Teams Ab Initio Etl Developer Relationship Specialty Start Date End Date NameNitin MD [address] [place] [address] PCP - General Family Medicine 08/26/17 [facility] 09/01/24 documented as of this encounter
--- OUTSIDE RECORDS SUMMARY | 2025-11-05 03:21 | XMS_ITS | Clinical Summary ---
Author Organization [facility] Address [address] [address] Care Team Providers Care Clinical Faculty Name Role Phone Name, Nitin PIKE Primary Care Provider [phone] Allergies Active Allergy Reactions Criticality Noted Date [...] patient's age to complete this topic [place] [address] MCR ([id number]) [place] [phone] [facility] MCR ([id number]) Care Teams Clinical Faculty Relationship Specialty Start Date End Date Name, MD Nitin [address] [place] [address] PCP - General Internal Medicine 10/15/22
--- OUTSIDE RECORDS SUMMARY | 2025-11-05 03:21 | XMS_ITS | Encounter Summary ---
Author Organization [employer] Address 75 [facility] 7[address] [place] [address] Care Team Providers Care Advertising Production Manager Name Role Phone Name, Nitin PIKE Primary Care Provider [phone] Reason for Visit * Reason Onset Date Comments Hospital Follow-up 10/20/2024 Encounter Details Date Type Department Care Team ([facility] Contact Info) Description 10/20/2024 Telephone [facility] MEDICINE [address] [place], [place] [phone] Name, MD Nitin 230 [place] [address] Hospital Follow-up Social History Tobacco Use Types [...] from pt requesting a HDF appt. Hospital: [facility] Date of admission: 10/17 Discharge date: 10/19 Diagnosed: High Blood Pressure and Fever Contact pt at [phone] *Send message to [facility] Clinical Care Coordinators documented in this encounter Plan of Treatment Upcoming Encounters Date Type Department Care Team (Late st Contact Info) Description 11/07/2025 10:00 AM EST Office Visit [facility] MEDICINE [address] [place] [address] Name, MD Nitin 230 [place] [address] documented as of this encounter Visit Diagnoses Not on filedocumented in this encounter Additional Health Concerns Assessment Noted Time PHQ-9 Depression Total Score: 6 02/13/20 24 9:14 AM EDT documented as of this encounter Care Teams Advertising Production Manager Relationship Specialty Start Date End Date Name, MD Nitin 230 [place] [address] PCP - General Family Medicine 08/26/17 [facility] 09/01/24 documented as of this encounter
--- OUTSIDE RECORDS SUMMARY | 2025-11-05 03:21 | XMS_ITS | Encounter Summary ---
Author Organization [employer] Address [address] [facility] [address] [place] [address] Care Team Providers Care Tread Builder Name Role Phone Name, Nitin PIKE Primary Care Provider [phone] Reason for Visit * Reason Onset Date Comments Durable Medical Equipment 12/09/2023 Encounter Details Date Type Department Care Team ([facility] st Contact Info) Description 12/09/2023 Telephone [facility] [address] [place], [place] [phone] Name, MD Nitin [address] [place], [place] [phone] Durable Medical Equipment Social History Tobacco Use [...] EST DME rx faxed to [facility] as requested. RN will consult with S nurse and provide referral. * Telephone Encounter - Fozia Jacob RN - 12/09/2023 4:58 PM EST Call returned to [facility] at [facility] [phone] [facility] states that [facility] attempted to provide PT at home but pt refused. [facility] pt is requesting outpatient PT. [facility] pt is seeing a counselor more regularly and has agreed to VNA referral. Reports pt has had 3 falls in the past [address] [facility] states [facility] no longer has visiting nurses. [facility] recommends [facility] or [facility] for VNA referral. [facility] also requesting DME rx for rollator walker and a straight cane. Requests that DME rx be faxed to [phone]. Advised requests will be sent to pcp. * Telephone Encounter - Adithya Solorzano - 12/09/2023 4:25 PM EST Tc from [facility] requesting DME: Rollator walker . documented in this encounter Plan of Treatment Upcoming Encounters Date Type Department Care Team (Late st Contact Info) Description 11/07/2025 10:00 AM EST Office Visit [facility] [address] [place] [address] Name, MD Nitin [address] [place] [address] documented as of this encounter Visit Diagnoses Not on filedocumented in this encounter Additional Health Concerns Assessment Noted Time PHQ-9 Depression Total Score: 12 023 9:37 AM EDT documented as of this encounter Care Teams Tread Builder Relationship Specialty Start Date End Date Name, MD Nitin [facility] [place] [address] PCP - General Family Medicine 08/26/17 [facility] 09/01/24 documented as of this encounter
--- OUTSIDE RECORDS SUMMARY | 2025-11-05 03:21 | XMS_ITS | Encounter Summary ---
Author Organization [employer] Address 75 [facility] [address] [place] [address] Care Team Providers Care Director River Restoration Name Role Phone Name, Nitin PIKE Primary Care Provider [phone] Reason for Visit * Reason Onset Date Comments Verbal Orders 01/02/2024 Encounter Details Date Type Department Care Team ([facility] st Contact Info) Description 01/02/2024 Telephone [facility] [address] [place], [place] [phone] Name, MD Nitin [address] [place] [address] Verbal Orders Social History Tobacco Use Types [...] No answer. LVM to call back on [phone]. * Telephone Encounter - Melany Santos RN - 01/06/2024 10:25 AM EST Please review and advise for below request. * Telephone Encounter - Deana Bazzi - 01/02/2024 3:44 PM EST Tc from [facility] with S requesting verbal orders for discharge pt from Occupational Therapy, due to pt refuses services, please contact [facility] at [phone]. documented in this encounter Plan of Treatment Upcoming Encounters Date Type Department Care Team (Late st Contact Info) Description 11/07/2025 10:00 AM EST Office Visit [facility] [address] [place] [address] Name, MD Nitin [address] [place] [address] documented as of this encounter Visit Diagnoses Not on filedocumented in this encounter Additional Health Concerns Assessment Noted Time PHQ-9 Depression Total Score: 12 023 9:37 AM EDT documented as of this encounter Care Teams Director River Restoration Relationship Specialty Start Date End Date Name, MD Nitin [address] [place] [address] PCP - General Family Medicine 08/26/17 [facility] 09/01/24 documented as of this encounter
--- OUTSIDE RECORDS SUMMARY | 2025-11-05 03:21 | XMS_ITS | Encounter Summary ---
Author Organization [employer] Address 75 [facility] [address] [place] [address] Care Team Providers Care Airways Control Specialist Name Role Phone Name, Nitin PIKE Primary Care Provider [phone] Reason for Visit * Reason Comments Med Refill Encounter Details Date Type Department Care Team (Late st Contact Info) Description 04/20/2025 Refill [facility] [address] [place] [address] Zechariah Cheung MD [address] [place] [address] Allergic rhinitis, unspecified seasonality, unspecified trigger Social [...] 10:00 AM EST Office Visit [facility] [address] [place] [address] NameNitin MD [address] [place] [address] documented as of this encounter Visit Diagnoses Diagnosis Allergic rhinitis, unspecified seasonality, unspecified trigger documented in this encounter Additional Health Concerns Assessment Noted Time PHQ-9 Depression Total Score: 6 02/13/20 9:14 AM EDT documented as of this encounter Care Teams Airways Control Specialist Relationship Specialty Start Date End Date Nitin Echevarria MD [address] [place] [address] PCP - General Family Medicine 08/26/17 [facility] 09/01/24 documented as of this encounter
--- OUTSIDE RECORDS SUMMARY | 2025-11-05 03:21 | XMS_ITS | Encounter Summary ---
Author Organization [employer] Address [address] [facility] [address] [place] [address] Care Team Providers Care Gallery Or Museum Curator Name Role Phone Name, Nitin PIKE Primary Care Provider [phone] Encounter Details Date Type Department Care Team ([facility] Contact Info) Description 12/17/2022 Orders Only [facility] [address] [place], [place] [phone] Lisha Kelly LPN Social History Tobacco Use [...] Description 11/07/2025 10:00 AM EST Office Visit [facility] [address] [place] [address] Nitin Echevarria MD [address] [place] [address] documented as of this encounter Visit Diagnoses Not on filedocumented in this encounter Care Teams Gallery Or Museum Curator Relationship Specialty Start Date End Date NameNitin MD [address] [place] [address] PCP - General Family Medicine 08/26/17 [facility] 09/01/24 documented as of this encounter
--- OUTSIDE RECORDS SUMMARY | 2025-11-05 03:21 | XMS_ITS | Encounter Summary ---
Author Organization [employer] Address [address] [facility] [address] [place] [address] Care Team Providers Care Acid Leveler Name Role Phone Name, Nitin PIKE Primary Care Provider [phone] Reason for Visit * Reason Onset Date Comments Order(s) 12/09/2023 Encounter Details Date Type Department Care Team ([facility] Contact Info) Description 12/09/2023 Telephone [facility] [address] [place], [place] [phone] Name, MD Nitin [address] [place], [place] [phone] Order(s) Social History Tobacco Use Types Packs/Day [...] orders. If any questions please contact Noreen [phone]. documented in this encounter Plan of Treatment Upcoming Encounters Date Type Department Care Team (Late st Contact Info) Description 11/07/2025 10:00 AM EST Office Visit [facility] [address] [place] [address] Name, MD Nitin [address] [place] [address] documented as of this encounter Visit Diagnoses Not on filedocumented in this encounter Additional Health Concerns Assessment Noted Time PHQ-9 Depression Total Score: 12 023 9:37 AM EDT documented as of this encounter Care Teams Acid Leveler Relationship Specialty Start Date End Date Name, MD Nitin [address] [place] [address] PCP - General Family Medicine 08/26/17 [facility] 09/01/24 documented as of this encounter
--- OUTSIDE RECORDS SUMMARY | 2025-11-05 03:21 | XMS_ITS | Encounter Summary ---
Author Organization [employer] Address [address] [facility] [address] [place] [address] Care Team Providers Care Oil Drilling Engineer Name Role Phone Name, Nitin PIKE Primary Care Provider [phone] Encounter Details Date Type Department Care Team (Late st Contact Info) Description 05/26/2023 Orders Only [facility] [address] [place] [phone] Noreen Fox MD [address] [place] [phone] Social History Tobacco Use Types Packs/Day Years [...] Office Visit [facility] [address] [place] [address] NameNitin MD [address] [place] [address] documented as of this encounter Visit Diagnoses Not on filedocumented in this encounter Care Teams Oil Drilling Engineer Relationship Specialty Start Date End Date Name, MD Nitin [address] [place] [address] PCP - General Family Medicine 08/26/17 [facility] 09/01/24 documented as of this encounter
--- OUTSIDE RECORDS SUMMARY | 2025-11-05 03:22 | XMS_ITS | Encounter Summary ---
Author Organization [employer] Address [address] [facility] [address] [place] [address] Care Team Providers Care Booth Operator Name Role Phone Name, Nitin PIKE Primary Care Provider [phone] Reason for Visit * Reason Comments Med Refill Encounter Details Date Type Department Care Team (Late Contact Info) Description 03/02/2023 Refill [facility] [address] [place] [address] Karely Patiño MD [address] [place] [address] [phone] Social History Tobacco Use Types Packs/Day Years [...] Visit [facility] [address] [place] [address] Name, MD Nitin [address] [place] [address] documented as of this encounter Visit Diagnoses Not on filedocumented in this encounter Care Teams Booth Operator Relationship Specialty Start Date End Date Name, MD Nitin [address] [place] [address] PCP - General Family Medicine 08/26/17 [facility] 09/01/24 documented as of this encounter
[2025-11-05 07:28] VITALS: BP 138/68; PULSE 88; RESP 16; TEMP 36.7; O2SAT 96
== END 2025-11-05 07:30 | disposition home or self-care (01) ==
PROVIDERS: Emergency Provider Emergency Medicine
DX: F41.1 Generalized anxiety disorder (principal); I10 Essential (primary) hypertension; Z79.899 Other long term (current) drug therapy
CPT/HCPCS: 99282

== ENCOUNTER 2025-11-06 02:12 | Emergency (ER) | payer OTHER, SELFPAY ==
[2025-11-06 02:19] VITALS: BP 190/90; PULSE 99; O2SAT 99
[2025-11-06 02:25] VITALS: BP 155/84; PULSE 88; RESP 16; TEMP 36.9; O2SAT 95; BMI 27.4
[2025-11-06 02:26] VITALS: BP 155/84; PULSE 88; RESP 16; TEMP 36.9; O2SAT 95
--- OUTSIDE RECORDS SUMMARY | 2025-11-06 02:55 | XMS_ITS | Clinical Summary ---
Author Organization [facility] Address [address] [place] [address] Phone Care Team Providers Care Awning Maker Name Role Phone Physician, No Pcp Primary [...] [facility] Comment:Calculation based on the [...] LAB CHEMISTRY METHOD 09/22/2024 3:15 AM EST [facility] Albumin 4.2 3.2 - 5.0 g/dL LAB CHEMISTRY METHOD 09/22/2024 3:15 AM EST [facility] Total Bilirubin 0.4 0.0 - 1.4 mg/dL LAB CHEMISTRY METHOD 09/22/2024 3:15 AM EST [facility] Blood Venous blood specimen / Unknown Venipuncture / Unknown 09/22/2024 2:28 AM EST 09/22/2024 2:31 AM EST us Paul RUIZ LAB BLOOD ORDERABLES Final Resul t [facility] [address] [place] [address], from Last 3 Months or Most Recently Relevant to Health Maintenance Insurance [facility] MEDIC[facility] Member Subscriber Plan / Payer (Ef fective 2021-Present) Name:Noreen Wing Relation to Subscriber:Self Name:Noreen Wing Payer ID:[id number] Group ID:[id number] Type:Not on file Address: [address] [address] Care Teams Awning Maker Relationship Specialty Start Date End Date Physician, No Pcp PCP - General 09/22/24
--- OUTSIDE RECORDS SUMMARY | 2025-11-06 02:55 | XMS_ITS | Data Portability ---
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 She called today because she insists on having the catheter removed. It was removed by the community health representative with the understand ing that if she can't void, she will need to go the the ER. The patient agreed with this plan. [id number] Rohit Benton MD [facility] - [address] [address] 02/06/2024 15:33:16 02/09/2024 18:20:42 Chronic retention of urine [id number] R33.8 Has bunn catheter which was recently [...] Member ID Guarantor Name 02/09/2024 1 [facility] - DOS ON OR AFTER 2023 - DUAL ELIGIBLE - FPC OPTIONS AND ONE CARE (MEDICARE REPLACEMENT/ADV ANTAGE - HMO) Noreen Wing [id number] Noreen Wing Notes Date Note Type Note [...] KAYE Verified name//address Epifanio Mcintyre MD [address] [facility],[address], [place], [address], [employer] 01/31/2024 19:05:57 02/06/2024 text/html ROS as noted in the HPI HPI: Member asked for HV tomorrow after 10 AM if possible. Treated at the [facility] ER today, for F/u [...] Persian speaking female who [place] [address] [facility] with her son. Member has [...] sees her BH counselor weekly and Prescriber [employer] [place] monthly if needed or every 2-3 months, .................... .................... .................... .................... .................... .................... .................... . CRC Nurse Triage Notes (Zafar Irving): Comments: Reviewed HPI .................... .................... .................... .................... .................... .................... .................... . Product Mgr Note From Jackson Madrdi: Pt sts doesn t know why she [...] stable. Urine clear and light yellow. [facility] contacted and advised pt to rest and advised to make sure she goes to appt Friday. Pt son was used as homoeopath. Pt education on signs indicating the ER. Product Mgr Allergies: Clindamycin .................... .................... .................... .................... .................... .................... .................... . Disposition: Fulfilled Rohit Benton MD [address] [facility],[address], [place], [address], [employer] 02/06/2024 17:58:19 OBGyn Episode No OBEpisode recorded.
--- OUTSIDE RECORDS SUMMARY | 2025-11-06 02:55 | XMS_ITS | Clinical Summary ---
Author Organization [facility] Address [address] [address] Care Team Providers Care Auto Parker Name Role Phone Name, Nitin PIKE Primary Care Provider [phone] Allergies Active Allergy Reactions Criticality Noted Date [...] patient's age to complete this topic Insurance [place] [address] MCR ([id number]) [place] [phone] [facility] MCR ([id number]) Care Teams Auto Parker Relationship Specialty Start Date End Date Name, MD Nitin [address] [place] [address] PCP - General Internal Medicine 10/15/22
[2025-11-06 03:05] VITALS: BP 131/70; PULSE 90; RESP 14; TEMP 36.9; O2SAT 93
--- NOTE | 2025-11-06 03:47 | ED.GENADULT ---
HPI - General Adult General Chief complaint: General Medical Stated complaint: HTN Time Seen by Provider: 11/06/25 02:21 Source: patient Limitations: no limitations History of Present Illness ED Provider: Jeanne Shen PA-C HPI narrative: 80-year-old female with a history of vertigo, HTN, anxiety, hyponatremia, SVT, benzo misuse , who is well known to our emergency department, being a high utilizer of resources, presents with multiple complaints. Patient called EMS to her home after she reported she was hypertensive. When she arrives, she states she is having dizziness. Patient states she has a history of vertigo and that her PCP won't refill her meclizine. . She is requesting a medication refill. Denies ear pain, nausea vomiting, fever. Related Data Home Medications ?Medication ?Instructions ?Recorded ?Confirmed omeprazole 20 mg tablet,delayed 20 mg PO DAILY@0630 08/09/20 08/22/25 release aspirin 81 mg tablet,delayed 81 mg PO QAM 01/28/24 08/22/25 release bisacodyl 5 mg tablet,delayed 5 mg PO DAILY PRN constipation 01/28/24 08/22/25 release ferrous sulfate 325 mg (65 mg 325 mg PO DAILY 01/28/24 08/22/25 iron) tablet (FeroSul) melatonin 10 mg tablet,extended 10 mg PO BEDTIME PRN Insomnia 01/28/24 08/22/25 release multivitamin 1 tab PO QAM 01/28/24 08/22/25 rosuvastatin 20 mg tablet 20 mg PO BEDTIME 01/28/24 08/22/25 trazodone 50 mg tablet 50 mg PO BEDTIME 01/28/24 08/22/25 amlodipine 10 mg tablet 10 mg PO DAILY 02/09/24 08/22/25 acetaminophen 500 mg tablet 500 mg PO Q8H PRN pain 08/09/24 08/22/25 cholecalciferol (vitamin D3) 25 25 mcg PO DAILY 08/20/24 08/22/25 mcg (1,000 unit) tablet sertraline 100 mg tablet 100 mg PO DAILY 03/16/25 08/22/25 apixaban 5 mg tablet 5 mg PO BID 08/22/25 08/22/25 clonazepam 0.5 mg tablet 0.5 mg PO TID 08/22/25 08/22/25 fluticasone propionate 50 2 spray intranasal DAILY PRN 08/22/25 08/22/25 mcg/actuation nasal Allergic Symptoms spray,suspension (Flonase Allergy Relief) hydroxyzine HCl 25 mg tablet 10 mg PO DAILY PRN anxiety 08/22/25 08/22/25 ketotifen fumarate 0.025 % (0.035 1 drp ophthalmic (eye) BID PRN 08/22/25 08/22/25 %) eye drops allergies mirtazapine 45 mg tablet 45 mg PO BEDTIME 08/22/25 08/22/25 valsartan 160 mg tablet 160 mg PO QPM 08/22/25 08/22/25 Previous Rx's ?Medication ?Instructions ?Recorded metoprolol succinate 50 mg 50 mg PO DAILY #90 tabs 09/28/20 tablet,extended release 24 hr docusate sodium 100 mg capsule 200 mg (2 x 100 mg) PO BID #20 caps 02/24/25 (Colace) ibuprofen 200 mg tablet 200 mg PO Q6H PRN pain #20 tabs 07/24/25 meclizine 12.5 mg tablet 12.5 mg PO TID PRN dizziness or 07/26/25 vertigo #30 tabs meclizine 25 mg tablet 25 mg PO BID PRN dizziness #14 tabs 09/22/25 meclizine 25 mg tablet 25 mg PO BID PRN dizziness #14 tabs 10/10/25 meclizine 25 mg tablet 25 mg PO BID PRN dizziness #14 tabs 11/01/25 Allergies Allergy/AdvReac Type Severity Reaction Status Date / Time penicillin G (Penicillin G) Allergy Severe ITCHY/RASH Verified 11/06/25 02:26 Sulfa (Sulfonamide Allergy Severe ITCHY,RASH, Verified 11/06/25 02:26 Antibiotics) (Sulfa rash (Sulfonamides)) trimethoprim (From Bactrim) Allergy Severe HIVES Verified 11/06/25 02:26 Penicillins Allergy Intermediate Hives Verified 11/06/25 02:26 sulfamethoxazole (From Allergy Mild Hives Verified 11/06/25 02:26 Bactrim) Review of Systems Review of Systems: Yes all other systems are reviewed and are negative Constitutional: Constitutional: Denies fatigue, Denies fever(s) and Denies headache(s) ENT: Reports dizziness, Denies ear discharge, Denies otalgia and Denies headache(s) Cardiovascular: Cardiovascular: Denies chest pain and Denies dyspnea Respiratory: Respiratory: Denies cough and Denies dyspnea Gastrointestinal: Gastrointestinal: Denies nausea and Denies vomiting Neurologic: Reports dizziness and Denies headache(s) Endocrine: Endocrine: Denies fatigue [facility] Past Medical History Attestation statement: The following information was validated with the patient. 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 or 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 (stenotypist) Alcohol intake: never Patient Tobacco Use Status: Never used Tobacco Advance Directives: Yes Advance Directives on File: Yes Advance Directives Date on File: 01/28/24 service: No Physical Exam ED Vital Signs: Vital Signs - 24 hr 11/06/25 02:25 11/06/25 02:26 11/06/25 03:05 Temperature 98.4 F 98.4 F 98.4 F Pulse Rate 88 88 90 Respiratory Rate 16 16 14 Blood Pressure 155/84 H 155/84 H 131/70 Pulse Oximetry 95 95 93 Oxygen Delivery Method Room Air Room Air Room Air BMI result Body Mass Index 27.4 Const Other: Alert well-appearing Orientation/consciousness: patient oriented x3 HENMT Other: Cerumen in bilateral ear canals Eyes Other: No nystagmus Resp Effort & Inspection: normal respiratory effort Cardio Other: Normal peripheral perfusion Skin Other: Warm dry no rash Neuro Other: No ataxia General: patient oriented x3, gait normal, no focal motor deficits and CN's II-XI intact bilaterally Psych Other: Manipulative behavior Medical Decision Making Medical Decision Making MDM Narrative: 80-year-old female with a history of vertigo, HTN, anxiety, hyponatremia, SVT, benzo misuse , who is well known to our emergency department, being a high utilizer of resources, presents with multiple complaints. Patient called EMS to her home after she reported she was hypertensive. When she arrives, she states she is having dizziness. Patient states she has a history of vertigo and that her PCP won't refill her meclizine. . She is requesting a medication refill. Denies ear pain, nausea vomiting, fever. Problem: Anxiety History: Per patient I have considered the following differential diagnoses:vertigo, malingering, secondary gain, anxiety, anemia, viral syndrome, electrolyte abnormality, dehydration Plan: Patient has no additional associated symptoms, her exam was benign, she is not ataxic, she also has no nystagmus. I relayed to her that I will give her a dose of meclizine here, that we no longer will be refilling her prescriptions, that she should have medication at home, that she should not be taking this medication every day. I reviewed her medication history, she received an Rx here in ED 11/01 for meclizine 25 mg # 14 tabs. I stated that she needs to follow up with her primary care provider for additional medication. No indication for labs or imaging. [facility] Noreen Wing 41 Patient presentation: Noreen is Tamazight speaking and utilizes our bilingual research interviewer services. Noreen presents frequently to the ED for various complaints including elevated blood pressure readings, anxiety, falls, hyponatremia, medication requests such as Ativan and narcotics. There have been concerns regarding medication safety and diversion of medications. Noreen has been assessed by psychiatry in the past and has been deemed to have poor insight and judgment. Noreen will frequently call ahead throughout the day to talk to our staff and unit secretaries. Noreen is frequently brought in by EMS. She has been referred to programs in past but family declines and continues to have Noreen live at home. PMH: HTN, hyperlipidemia, hyponatremia, benzodiazepine use disorder, SVT, CKD, pulmonary embolus but no longer on DOAC, cognitive impairment, GERD, hx of urinary retention in setting of medications. Prior admissions: Her most recent admission was in August of 2024 for hyponatremia ? her psychiatric medications were switched and she was placed on 1.2L of fluid restriction a day. ED interventions: Reassurance is the mainstay of treatment. If Noreen asks for benzodiazepines or narcotics as a ?one time? dose in the ED we are not to give it. She has not presented in withdrawal, she will frequently state that she ran out of her medications or her pharmacy has not filled it. She will not receive any benzodiazepine or narcotic prescriptions from our department. She has a history of recurrent falls. Her pain can be managed with Tylenol. If Noreen presents with a medical issue or concern please assess and work up accordingly. Please run her PROJECT ASSISTANT as well, we are not the only facility she utilizes. Be mindful to check her sodium if she has not had any recent labs. Follow up: ? Noreen has a primary care doctor, a psychiatric prescriber who prescribes her benzodiazepines, urologist, and chalk tester for her hyponatremia. Please refer her to outpatient. ?Her daughter Jeanne Meadows is her HCP ? [phone] please contact her with any concerns. Differential Diagnosis Differential Diagnoses: The differential diagnosis associated with the presentation includes See MDM Admission/Observation Consideration of admission/observation: Escalation of care including admission/observation considered Not applicable Discharge Plan Discharge Clinical Impression: Dizziness Patient Disposition: Home, Self-Care Instructions: Dizziness (ED) Additional Instructions: If you require additional medication for your vertigo, you need to contact your primary care provider. You were given a 1 time dose of meclizine here in the emergency room. Prescriptions: No Action metoprolol succinate 50 mg tablet extended release 24 hr 50 mg PO DAILY Qty: 90 2RF omeprazole 20 mg Tablet,Delayed Release (Dr/Ec) 20 mg PO DAILY@0630 meclizine 12.5 mg tablet 12.5 mg PO TID PRN (Reason: dizziness or vertigo) Qty: 30 0RF meclizine 25 mg tablet 25 mg PO BID PRN (Reason: dizziness) Qty: 14 0RF meclizine 25 mg tablet 25 mg PO BID PRN (Reason: dizziness) Qty: 14 0RF trazodone 50 mg tablet 50 mg PO BEDTIME ferrous sulfate [FeroSul] 325 mg (65 mg iron) tablet 325 mg PO DAILY bisacodyl 5 mg tablet,delayed release (DR/EC) 5 mg PO DAILY PRN (Reason: constipation) rosuvastatin 20 mg tablet 20 mg PO BEDTIME aspirin 81 mg tablet,delayed release (DR/EC) 81 mg PO QAM multivitamin Tablet 1 tab PO QAM melatonin 10 mg tablet extended release 10 mg PO BEDTIME PRN (Reason: Insomnia) cholecalciferol (vitamin D3) 25 mcg (1,000 unit) tablet 25 mcg PO DAILY acetaminophen 500 mg tablet 500 mg PO Q8H PRN (Reason: pain) docusate sodium [Colace] 100 mg capsule 200 mg PO BID Qty: 20 0RF ibuprofen 200 mg tablet 200 mg PO Q6H PRN (Reason: pain) Qty: 20 0RF ketotifen fumarate 0.025 % (0.035 %) drops 1 drp ophthalmic (eye) BID PRN (Reason: allergies) mirtazapine 45 mg tablet 45 mg PO BEDTIME clonazepam 0.5 mg tablet 0.5 mg PO TID hydroxyzine HCl 25 mg tablet 10 mg PO DAILY PRN (Reason: anxiety) fluticasone propionate [Flonase Allergy Relief] 50 mcg/actuation spray,suspension 2 spray intranasal DAILY PRN (Reason: Allergic Symptoms) Rx Instructions: administer into each nostril apixaban 5 mg tablet 5 mg PO BID valsartan 160 mg tablet 160 mg PO QPM meclizine 25 mg tablet 25 mg PO BID PRN (Reason: dizziness) Qty: 14 0RF sertraline 100 mg tablet 100 mg PO DAILY amlodipine 10 mg tablet 10 mg PO DAILY Print Language: Tamazight
[2025-11-06 04:07] VITALS: BP 131/70; PULSE 90; RESP 14; TEMP 36.9; O2SAT 93
== END 2025-11-06 04:10 | disposition home or self-care (01) ==
PROVIDERS: Emergency Provider Emergency Medicine
DX: R42 Dizziness and giddiness (principal); I10 Essential (primary) hypertension; Z79.899 Other long term (current) drug therapy

== ENCOUNTER 2025-11-06 06:45 | Emergency (ER) | payer OTHER, SELFPAY ==
[2025-11-06 06:55] VITALS: BP 145/72; PULSE 96; O2SAT 98
--- OUTSIDE RECORDS SUMMARY | 2025-11-06 07:02 | XMS_ITS | Encounter Summary ---
Author Organization [employer] Address [address] [address] [place] [address] Care Team Providers Care Associate Professor Of Management Name Role Phone Name, Nitin PIKE Primary Care Provider [phone] Encounter Details Date Type Department Care Team ([facility] Contact Info) Description 01/06/2023 Orders Only [facility] [address] [place], [place] [phone] Lisha Kelly LPN Social History Tobacco Use [...] Description 11/07/2025 10:00 AM EST Office Visit [facility] [address] [place], [place] [phone] NameNitin MD [address] [place] [address] documented as of this encounter Visit Diagnoses Not on filedocumented in this encounter Care Teams Associate Professor Of Management Relationship Specialty Start Date End Date NameNitin MD [address] [place] [address] PCP - General Family Medicine 08/26/17 [facility] 09/01/24 documented as of this encounter
--- OUTSIDE RECORDS SUMMARY | 2025-11-06 07:02 | XMS_ITS | Encounter Summary ---
Author Organization [employer] Address [address] [facility] [address] [place] [address] Care Team Providers Care Communications Consultant Name Role Phone Name, Nitin PIKE Primary Care Provider [phone] Reason for Visit * Reason Comments Med Refill Encounter Details Date Type Department Care Team (Late st Contact Info) Description 07/25/2025 Refill [facility] [address] [place], [place] [phone] Name, MD Nitin [address] [place] [address] Social History Tobacco Use Types Packs/Day Years [...] EST Office Visit [facility] [address] [place] [phone] NameNitin MD [address] [place] [id number] documented as of this encounter Visit Diagnoses Not on filedocumented in this encounter Additional Health Concerns Assessment Noted Time PHQ-9 Depression Total Score: 3 04/29/20 25 9:41 AM EDT documented as of this encounter Care Teams Communications Consultant Relationship Specialty Start Date End Date NameNitin MD [address] [place] [id number] PCP - General Family Medicine 08/26/17 [facility] 09/01/24 documented as of this encounter
--- OUTSIDE RECORDS SUMMARY | 2025-11-06 07:02 | XMS_ITS | Clinical Summary ---
Author Organization [employer] Address [address] [place] [address] [address] [place] [address] Care Team Providers Care [facility] Television Rental Clerk Name Role Phone Name, Nitin PIKE Primary Care Provider [phone] Allergies Active Allergy Reactions Criticality Noted Date [...] MOUTH EVERY 8 HOURS NEEDED FOR PAIN (UKRAINIAN LABEL) 90 tablet 025 Active omeprazole (PriLOSEC) [...] EST 2024 Diclofenac Sodium 1 % gelIndications:Ac red cliff right-sided low back pain without sciatica Apply [...] EST): Symptomatic measures Rest Major neurocognitive disorder (CMS/[facility]) 11/02/20 Acute otitis media 04/22/2024 [...] precautions advised Stage 3a chronic kidney disease ([facility]) 2022 Headache 01/02/2023 Overview (12/18/2023): Last [...] it calms her down. I called [facility] pharmacy to attempt a med rec [...] I received a call from the [facility] pharmacy instructing me that she was [...] Type Department Care Team Description 10/20/2025 Refill [facility] MEDICINE [address] [place] [address] Name, MD Nitin 10/19/2025 Refill [facility] MED & PEDS [address] [place] [address] Name, MD Nitin Chronic constipation; Vitamin D deficiency 10/03/2025 Orders Only GENERIC EXTERNAL DATA DEPARTMENT Provider, Generic External Data 09/29/2025 8:40 AM EST Office Visit [facility] [address] [place] [address] Zach Javier MD Acute right-sided low back pain without sciatica (Primary Dx); Vertigo 09/29/2025 Travel 09/28/2025 Refill [facility] MED & PEDS [address] [place] [address] Nitin Echevarria MD Vitamin D deficiency 09/27/2025 Refill [facility] & PED[facility] [address] [place] [address] Nitin Echevarria MD 09/22/[address] [address] Nitin Echevarria MD Nurse Triage 09/22/2025 Orders Only GENERIC EXTERNAL DATA DEPARTMENT Provider, Generic External Data 09/21/[address] [address] Nitin Echevarria MD Request For Order(s); Referral 09/19/2025 Refill [facility] MED & PED[facility] [address] [place] [address] Nitin Echevarria MD 09/19/2025 Orders Only GENERIC EXTERNAL DATA DEPARTMENT Provider, Generic External Data 09/18/2025 Orders Only [facility] External Provider, [facility] 09/17/2025 Orders Only GENERIC EXTERNAL DATA DEPARTMENT Provider, Generic External Data 09/09/[address] [address] Thea Warren FNP Results 09/06/2025 1:30 PM EDT Office Visit [address] [address] Thea Warren FNP Acute pain of left knee (Primary Dx); Urinary frequency; Acute cystitis without hematuria 09/06/2025 Orders Only [address] [address] Thea Warren FNP 09/06/2025 Travel 09/05/[address] [address] Nitin Echevarria MD Chart Prep 09/03/2025 Orders Only GENERIC EXTERNAL DATA DEPARTMENT Provider, Generic External Data 08/30/2025 Patient Outreach [facility] MED & PEDS [address] [place] [address] Nitin Echevarria MD Pre-visit Planning ([facility] unable to reach) 08/24/2025 Telephone [facility]INE [address] [place] [address] Nitin Echevarria MD Referral 08/24/2025 Telephone [facility] [address] [place] [address] Nitin Echevarria MD Verbal Order 08/22/2025 Orders Only [facility] External Provider, [facility] 08/18/2025 Orders Only GENERIC EXTERNAL DATA DEPARTMENT Provider, Generic External Data 08/17/2025 Refill [facility] [address] [place] [address] Nitin Echevarria MD 08/17/2025 Refill [facility] [address] [place] [address] Miryam Riley NP Hypertension, unspecified type 08/15/2025 Refill [facility] [address] [place] [address] Nitin Echevarria MD Heartburn 08/14/2025 Refill [facility] P[facility] [address] [place] [address] Nitin Echevarria MD Heartburn; Vitamin D deficiency 08/09/2025 11:15 AM EDT Office Visit [facility] [address] [place] [address] Nitin Echevarria MD Generalized anxiety disorder with [...] Office Visit [facility] [address] [place] [address] Name, MD Nitin [address] [place] [address] Health Maintenance Due Date Last Done Comments [...] this topic Meningococcal Vaccine Aged Out No ardiana kirit eligible based on patient's age to [...] time period is included. Color Urine Yellow [facility] Appearance Urine Clear [facility] PH 6.0 5.0 - 9.0 [facility] Glucose Urine UA Negative Negative mg/dL [facility] Urine Blood Negative Negative [facility] Specific [place] - Urine 1.015 1.005 - 1.025 [facility] Urine Protein Negative Neg-Trace mg/dL [facility] Urine Ketones Negative Negative mg/dL [facility] Nitrite Urine Negative Negative [facility] Leukocyte Esterase Urine Moderate (2+)(A) Negative [facility] RBC Urine 0-2 0 - 2 /HPF [facility] Urine WBC 11-20(A) 0 - 5 /HPF [facility] Urine Squamous Epithelial Cell 0-2 0 - 2 /HPF [facility] Urine Bacteria None Seen None Seen [facility] Hyaline Casts, Urine 0-2 0 - 2 /LPF [facility] 10/03/2025 11:1 8 PM EST 10/03/2025 11:21 PM EST Narrative [facility] - 10/03/2025 11:29 PM EST [id number], Clean Catch Generic External Data Provider LAB URINE ORDERAB LES Final Result Performing Organization Address [facility] Co de Phone Number [facility] [address] [place] [phone] * Culture, Urine, Routine (10/03/2025 12:00 AM EST) Only the most recent of3 resultswithin the time period is included. Urine Urine specimen obtained by clean catch procedure / Unknown 10/03/2025 10/03/2025 Comment:UACC Narrative [facility] - 10/05/2025 11:28 AM EST Urine Culture Report Result Urine Culture 10,000 to 50,000 cfu/ml Urine Culture Mixed bacterial jann characteristic of Urine Culture urogenital contamination. Specimen Source: Urine clean catch Generic External Data Provider LAB MICROBIOLOGY - GENERAL ORDERABLES Final Result Performing Organization Address [facility] Co de Phone Number [facility] [address] [place] [phone] * (ABNORMAL) CBC auto differential (09/22/2025 7:21 AM EST) Only the most recent of3 resultswithin the time period is included. White Blood Count 6.6 4.8 - 10.8 X10*3/uL [facility] Red Blood Count 4.39 4.20 - 5.50 X10*6/uL [facility] Hemoglobin 12.2 12.0 - 16.0 g/dl [facility] Hematocrit 37.3 37.0 - 47.0 % [facility] Mean Corpuscular Volume 85.0 80.0 - 98.0 fL [facility] Mean Corpuscular Hemoglobin 27.8 27.0 - 33.0 pg [facility] Mean Corpuscular HGB Conc 32.7 31.0 - 35.0 g/dl [facility] Red Cell Distribution Width 13.8 11.0 - 16.0 % [facility] Platelet Count 295 160 - 400 X10*3/uL [facility] Mean Platelet Volume 8.1(L) 9.4 - 12.3 fL [facility] Neutrophils Percent Auto 70.6 45 - 73 % [facility] Imm Gran Pct Auto 0.5(H) 0.0 - 0.4 % [facility] Lymphocytes Percent Auto 18.3(L) 20 - 40 % [facility] Monocytes Percent Auto 9.4 2 - 11 % [facility] Eosinophils Percent Auto 0.6 0 - 4 % [facility] Basophils Percent Auto 0.6 0 - 2 % [facility] NRBC Pct Auto 0.0 0.0 - 0.2 /100WBC [facility] Neutrophils Absolute Auto 4.7 2.0 - 8.3 x10*3/uL [facility] Imm Gran Abs Auto 0.03 0.00 - 0.03 X10*3/uL [facility] Lymphocytes Absolute Auto 1.2 1.2 - 4.9 X10*3/uL [facility] Monocytes Absolute Auto 0.6 0.1 - 1.2 X10*3/uL [facility] Eosinophils Absolute Auto 0.0 0.0 - 0.4 X10*3/uL [facility] Basophils Absolute Auto 0.0 0.0 - 0.2 X10*3/uL [facility] NRBC Abs Auto 0.000 0.0 - 0.012 X10*3/uL [facility] 09/22/2025 7:21 AM EST 09/22/2025 7:23 AM EST us Generic External Data Provider LAB BLOOD ORDERAB LES Final Result [facility] [address] [place] [address] [phone] * (ABNORMAL) Basic Metabolic Panel (09/22/2025 7:21 AM EST) Only the most recent of2 resultswithin the time period is included. Sodium 137 135 - 145 mmol/L [facility] Potassium 4.7 3.3 - 5.1 mmol/L [facility] Chloride 100 96 - 108 mmol/L [facility] Carbon Dioxide 29 22 - 29 mmol/L [facility] Anion Gap 13 12 - 20 [facility] Urea Nitrogen (BUN) 18(H) 9 - 16 mg/dL [facility] Creatinine, Serum 0.85 0.5 - 1.4 mg/dL [facility] Creatinine Clr Calc Pharmacy 56.1 [facility] Comment:Provided height and weight: 162.56 cm,89.3 kg.eGFR (calculated from the MDRD study equation) and eCrCl(calculated from the Cockcroft-Gault equation) are based ondifferent parameters and may not yield comparable results.If eCrCl result is absurd, please check patient'sheight/weight. Estimated Glomerular Filt Rate >60 [facility] Comment:Chronic Kidney Disea se: Estimated GFR < 60 mL/min/1.33i3Dyrnnq Kidney Disease: Estimated GFR < 15 mL/min/1.73m2 Glucose 105 60 - 115 mg/dL [facility] Calcium 10.0 8.4 - 10.2 mg/dL [facility] 09/22/2025 7:21 AM EST 09/22/2025 7:23 AM EST us Generic External Data Provider LAB BLOOD ORDERAB LES Final Result [facility] [address] [place] [address] [phone] * CT Head w/o Contrast (09/19/2025 3:43 AM EST) Only the most recent of2 resultswithin the time period is included. Anatomical Region Laterality Modality Head, Neck Computed Tomogra phy 09/19/2025 3:43 AM EST Narrative 09/19/2025 3:45 AM EST [address] [address] [address] Scan Report Signed Patient: Noreen Wing MR#: [id number] : 1945 Acct:[id number] Age/Sex: 79 / F ADM Date: 09/18/25 Loc: HO.ED Attending Dr: Ordering Physician: Marium Ny DO Date of Service: 09/19/25 Procedure(s): CT head/brain wo IV con Accession Number(s): [id number] cc: Marium Ny DO; [facility] Report Number: [id number]: Total DLP = 747.02 mGy-cm Reason for [...] in OV> 09/19/25343 DD/ 2 TD/TT: 09/19/25342 Batting Machine Operator Insulation: Procedure Note Donotuseinterpreter, Image - 09/19/[address] [address] [address] Scan Report Signed Patient: Noreen WingMR#: [id number] : 1945cct:[id number] Age/Sex: 79 / FADM Date: 09/18/25 Loc: HO.ED Attending Dr: Ordering Physician: Marium Ny DO Date of Service: 09/19/25 Procedure(s): CT head/brain wo IV con Accession Number(s): [id number] cc: Marium Ny DO; [facility] Report Number: [id number]: Total DLP = 747.02 mGy-cm Reason for [...] MD Signed By: <Electronically signed by Jono iFne MD in OV> 09/19/25343 DD/ 2 TD/TT: 09/19/25342 Batting Machine Operator Insulation: [facility] External Provider IMG CT PROCEDURES Edited Result - Final * CT Cervical Spine w/o Contrast (09/19/2025 3:42 AM EST) Only the most recent of2 resultswithin the time period is included. Anatomical Region Laterality Modality Spine, C-spine Computed Tomogra phy 09/19/2025 3:42 AM EST Narrative 09/19/2025 3:43 AM EST [address] [address] [address] Scan Report Signed Patient: Noreen Wing MR#: [id number] : 1945 Acct:[id number] Age/Sex: 79 / F ADM Date: 09/18/25 Loc: HO.ED Attending Dr: Ordering Physician: Marium Ny DO Date of Service: 09/19/25 Procedure(s): CT cervical spine wo IV con Accession Number(s): [id number] cc: Marium Ny DO; [facility] Report Number: [id number]: Total DLP = 428.77 mGy-cm Reason for Exam: fall, head trauma CLINICAL HISTORY: fall, head trauma CT cervical spine without contrast Comparison: CT/SR - CT CERVICAL SPINE WO IV CON - 09/03/25 13:35 EDT Findings: The alignment of the cervical spine is normal. There is no fracture. There is klom-xg-ptrpfvbc C5-6 degenerative disc disease. There are posterior osteophytes at C5-6 probably causing allr-ov-spbvltwh central canal stenosis. There is multilevel facet [...] in OV> 09/19/25341 DD/ 1 TD/TT: 09/19/25341 Batting Machine Operator Insulation: Procedure Note Donotuseinterpreter, Image - 09/19/[address] [place] [address] [address] Scan Report Signed Patient: Noreen WingMR#: [id number] : 1945cct:[id number] Age/Sex: 79 / FADM Date: 09/18/25 Loc: HO.ED Attending Dr: Ordering Physician: Marium Ny DO Date of Service: 09/19/25 Procedure(s): CT cervical spine wo IV con Accession Number(s): [id number] cc: Marium Ny DO; [facility] Report Number: [id number]: Total DLP = 428.77 mGy-cm Reason for Exam: fall, head trauma CLINICAL HISTORY: fall, head trauma CT cervical spine without contrast Comparison: CT/SR - CT CERVICAL SPINE WO IV CON - 09/03/25 13:35 EDT Findings: The alignment of the cervical spine is normal. There is no fracture. There is dwqh-xa-kdfxnesb C5-6 degenerative disc disease. There are posterior osteophytes at C5-6 probably causing cmaz-bk-ikjuwqic central canal stenosis. There is multilevel facet [...] in OV> 09/19/25341 DD/ 1 TD/TT: 09/19/25341 Batting Machine Operator Insulation: [facility] External Provider IMG CT PROCEDURES Edited Result - Final * High Sensitivity Troponin I (09/19/2025 12:26 AM EST) Only the most recent of2 resultswithin the time period is included. TROPONIN I HIGH SENSITIVITY <2.7 <3.5 - 17.0 ng/L [facility] Comment:The Mckeon high sens itivity Troponin-I results should beused in conjunction with other diagnostic information suchas ECG, clinical observations and information, and patientsymptoms to aid in the diagnosis of ID. 09/19/2025 12:2 6 AM EST 09/19/2025 12:28 AM EST Generic External Data Provider LAB BLOOD ORDERAB LES Final Result [facility] [address] [place] [address] [phone] * Prothrombin Time-INR (09/19/2025 12:26 AM EST) Prothrombin Time 12.5 11.2 - 13.5 SEC [facility] INTERNATIONAL NORM RATIO 1.0 0.9 - 1.1 [facility] Comment:INTERNATIONAL NORMAL IZED RATIO (INR) [...] Provider LAB BLOOD ORDERAB LES Final Result [facility] [address] [place] [phone] * (ABNORMAL) Comprehensive Metabolic Panel (09/19/2025 12:26 AM EST) Only the most recent of2 resultswithin the time period is included. Sodium 136 135 - 145 mmol/L [facility] Potassium 4.1 3.3 - 5.1 mmol/L [facility] Chloride 101 96 - 108 mmol/L [facility] Carbon Dioxide 25 22 - 29 mmol/L [facility] Anion Gap 14 12 - 20 [facility] Urea Nitrogen (BUN) 33(H) 9 - 16 mg/dL [facility] Creatinine, Serum 0.99 0.5 - 1.4 mg/dL [facility] Creatinine Clr Calc Pharmacy 45.4 [facility] Comment:Provided height and weight: 157.48 cm,86.183 kg.eGFR (calculated from the MDRD study equation) and eCrCl(calculated from the Cockcroft-Gault equation) are based ondifferent parameters and may not yield comparable results.If eCrCl result is absurd, please check patient'sheight/weight. Estimated Glomerular Filt Rate 54 [facility] Comment:Chronic Kidney Disea se: Estimated GFR < 60 mL/min/1.01j8Arwkmw Kidney Disease: Estimated GFR < 15 mL/min/1.73m2 Glucose 108 60 - 115 mg/dL [facility] Calcium 8.9 8.4 - 10.2 mg/dL [facility] Bilirubin, Total 0.3 0.0 - 1.0 mg/dL [facility] Aspartate Amino Transferase 26 5 - 31 U/L [facility] Alanine Aminotransferase 14 0 - 31 U/L [facility] Total Protein 7.6 6.5 - 8.0 g/dL [facility] Albumin Level 4.1 3.5 - 5.0 g/dL [facility] Alkaline Phosphatase 92 39 - 117 U/L [facility] 09/19/2025 12:2 6 AM EST 09/19/2025 12:28 AM EST us Generic External Data Provider LAB BLOOD ORDERAB LES Final Result Performing Organization Address City/State/[facility] de Phone Number [facility] [address] [place] [phone] * XR Knee 4+ Views Left (09/18/2025 3:36 PM EST) Only the most recent of2 resultswithin the time period is included. Anatomical Region Laterality Modality Lower Extremities, Knee Left Radiogra phic Imaging 09/18/2025 3:36 PM EST Narrative 09/18/2025 3:39 PM EST [address] [address] XRay Report Signed Patient: Noreen Wing MR#: [id number] : 1945 Acct:[id number] Age/Sex: 79 / F ADM Date: 09/18/25 Loc: HO.ED Attending Dr: Ordering Physician: Cuco Amador Date of Service: 09/18/25 Procedure(s): XR knee LT 4V Accession Number(s): [id number] cc: Cuco Amador; Name,Nitin PIKE Reason for [...] in OV> 09/18/258 DD/ 35 TD/TT: 09/18/251535 Batting Machine Operator Insulation: Procedure Note Donotuseinterpreter, Image - 09/18/[address] [address] XRay Report Signed Patient: Noreen WingMR#: [id number] : 3Acct:[id number] Age/Sex: 79 / FADM Date: 09/18/25 Loc: .ED Attending Dr: Ordering Physician: Cuco Amador Date of Service: 09/18/25 Procedure(s): XR knee LT 4V Accession Number(s): [id number] cc: Cuco Amador; Name,Nitin PIKE Reason for [...] in OV> 09/18/258 DD/ 35 TD/TT: 09/18/251535 Batting Machine Operator Insulation: [facility] External Provider IMG XR PROCEDURES Edited Result - Final * Glucose, Whole Blood (09/17/2025 7:24 AM EST) Glucose, Whole Blood 98 60 - 115 mg/dL [facility] Comment:METER #: [id number] 09/17/2025 7:24 AM EST 09/17/2025 7:28 AM EST Generic External Data Provider LAB BLOOD ORDERAB LES Final Result Performing Organization Address [facility]/ZIP Co de Phone Number [facility] [address] [place] [phone] * POCT Urinalysis (09/06/2025 1:32 PM [...] Random) 09/06/2025 1:32 PM EDT Thea Warren HOURLY CAREGIVER POINT OF CARE TEST ENTER/EDIT ORDERABLES Final Result * Magnesium (09/03/2025 2:08 PM EDT) Magnesium 2.0 1.6 - 2.6 mg/dL [facility] 09/03/2025 2:08 PM EDT 09/03/2025 2:12 PM EDT us Generic External Data Provider LAB BLOOD ORDERAB LES Final Result Performing Organization Address [facility]/ZIP Co de Phone Number [facility] [address] [place] [phone] * POCT HGB A1C (01/10/2025 11:02 AM EST) Hemoglobin A1C 5.1 4.0 - 6.0 % QC Media Lot # [id number] Lot# Expiration Date ,940,519 Blood 01/10/2025 11:0 2 AM EST Nitin [...] LDL-C. Jack RAYO et al. JITENDRA. 2013;310(19): 8588-1068 (http://education.[employer].Everyone Counts/faq/CJW088) Non-HDL Cholesterol 88 <130 mg/dL (calc) CONVERTED [...] Most Recently Relevant to Health Maintenance Insurance ASSISTED OPTIONS (HMO D-SNP) [place] [id number] Care Teams Hospital Television Rental Clerk Relationship Specialty Start Date End Date Name, MD Nitin [address] [place] [address] PCP - General Family Medicine 08/26/17 [facility] 09/01/24
--- OUTSIDE RECORDS SUMMARY | 2025-11-06 07:02 | XMS_ITS | Encounter Summary ---
Author Organization [employer] Address [address] [facility] [address] [place] [address] Care Team Providers Care Crime Scene Analyst Name Role Phone Name, Nitin PIKE Primary Care Provider [phone] Reason for Visit * Reason Comments Med Refill Encounter Details Date Type Department Care Team (Late st Contact Info) Description 08/16/2024 Refill [facility] & PEDS [address] [place], [place] [phone] Name, MD Nitin [address] [place] [address] Heartburn Social History Tobacco Use Types Packs/Day [...] [facility] MEDICINE [address] [place] [phone] NameNitin MD [address] [place] [phone] documented as of this encounter Visit Diagnoses Diagnosis Heartburn documented in this encounter Additional Health Concerns Assessment Noted Time PHQ-9 Depression Total Score: 6 02/13/20 24 9:14 AM EDT documented as of this encounter Care Teams Crime Scene Analyst Relationship Specialty Start Date End Date NameNitin MD [address] [place] [phone] PCP - General Family Medicine 08/26/17 [facility] 09/01/24 documented as of this encounter
--- OUTSIDE RECORDS SUMMARY | 2025-11-06 07:02 | XMS_ITS | Encounter Summary ---
Author Organization [employer] Address [address] [facility] [address] [place] [address] Care Team Providers Care Antique Finisher Name Role Phone Name, Nitin PIKE Primary Care Provider [phone] Encounter Details Date Type Department Care Team ([facility] Contact Info) Description 12/17/2022 Orders Only [facility] & PEDS [address] [place], [place] [phone] Lisha Kelly LPN Social History Tobacco Use [...] 11/07/2025 10:00 AM EST Office Visit [facility] MEDICINE [address] [place] [address] Nitin Echevarria MD [address] [place] [address] documented as of this encounter Visit Diagnoses Not on filedocumented in this encounter Care Teams Antique Finisher Relationship Specialty Start Date End Date NameNitin MD [address] [place] [address] PCP - General Family Medicine 08/26/17 [facility] 09/01/24 documented as of this encounter
--- OUTSIDE RECORDS SUMMARY | 2025-11-06 07:02 | XMS_ITS | Encounter Summary ---
Author Organization [employer] Address [address] [facility] [address] [place] [address] Care Team Providers Care Geriatrics Physician Name Role Phone Name, Nitin PIKE Primary Care Provider [phone] Reason for Visit * Reason Onset Date Comments Med Refill 11/08/2024 Encounter Details Date Type Department Care Team ([facility] st Contact Info) Description 11/08/2024 Telephone [facility] MEDICINE [address] [place], [place] [phone] Name, MD Nitin [address] [place] [address] Med Refill Social History Tobacco Use Types [...] prescribed by PCP. * Telephone Encounter - Aanid Vinson - 11/08/2024 9:10 AM EST TC from pt requesting medication refill. Medications needing refill : zolpidem (Ambien) 5 MG tablet To be sent to: [facility] - [place], [place] - [address] [facility] documented in this encounter Plan of Treatment Upcoming Encounters Date Type Department Care Team ([facility] st Contact Info) Description 11/07/2025 10:00 AM EST Office Visit [facility] MEDICINE [address] [place] [address] Name, MD Nitin [address] [place] [address] documented as of this encounter Visit Diagnoses Not on filedocumented in this encounter Additional Health Concerns Assessment Noted Time PHQ-9 Depression Total Score: 6 02/13/20 24 9:14 AM EDT documented as of this encounter Care Teams Geriatrics Physician Relationship Specialty Start Date End Date Name, MD Nitin [address] [place] [address] PCP - General Family Medicine 08/26/17 [facility] 09/01/24 documented as of this encounter
--- OUTSIDE RECORDS SUMMARY | 2025-11-06 07:02 | XMS_ITS | Encounter Summary ---
Author Organization [employer] Address 75 [facility] 7t [place] [address] Care Team Providers Care Technical Specialist Cytogenetics Name Role Phone Name, Nitin PIKE Primary Care Provider [phone] Reason for Visit * Reason Onset Date Comments Verbal Orders 01/02/2024 Encounter Details Date Type Department Care Team ([facility] st Contact Info) Description 01/02/2024 Telephone [facility] 230 [place], [place] [phone] Name, MD Nitin 230 [place] [address] Verbal Orders Social History Tobacco Use Types [...] No answer. LVM to call back on [phone]. * Telephone Encounter - Melany Santos RN - 01/06/2024 10:25 AM EST Please review and advise for below request. * Telephone Encounter - Deana Bazzi - 01/02/2024 3:44 PM EST Tc from [facility] with S requesting verbal orders for discharge pt from Occupational Therapy, due to pt refuses services, please contact [facility] at [phone]. documented in this encounter Plan of Treatment Upcoming Encounters Date Type Department Care Team (Late st Contact Info) Description 11/07/2025 10:00 AM EST Office Visit [facility] [address] [place] [address] Name, MD Nitin 230 [place] [address] documented as of this encounter Visit Diagnoses Not on filedocumented in this encounter Additional Health Concerns Assessment Noted Time PHQ-9 Depression Total Score: 12 023 9:37 AM EDT documented as of this encounter Care Teams Technical Specialist Cytogenetics Relationship Specialty Start Date End Date Name, MD Nitin [address] [place] [address] PCP - General Family Medicine 08/26/17 [facility] 09/01/24 documented as of this encounter
--- OUTSIDE RECORDS SUMMARY | 2025-11-06 07:02 | XMS_ITS | Encounter Summary ---
Author Organization [employer] Address 75 [facility] 7t [place] [address] Care Team Providers Care Toy Parts Former Supervisor Name Role Phone Name, Nitin PIKE Primary Care Provider [phone] Reason for Visit * Reason Comments Med Refill Encounter Details Date Type Department Care Team (Late Contact Info) Description 03/02/2023 Refill [facility] [address] [place] [address] Karely Patiño MD [address] [place] [address] [phone] Social History Tobacco Use Types Packs/Day Years [...] EST Office Visit [facility] [address] [place] [address] Name, MD Nitin [address] [place] [address] documented as of this encounter Visit Diagnoses Not on filedocumented in this encounter Care Teams Toy Parts Former Supervisor Relationship Specialty Start Date End Date Name, MD Nitin 230 [place] [address] PCP - General Family Medicine 08/26/17 [facility] 09/01/24 documented as of this encounter
--- OUTSIDE RECORDS SUMMARY | 2025-11-06 07:02 | XMS_ITS | Encounter Summary ---
Author Organization [employer] Address [address] [facility] [address] [place] [address] Care Team Providers Care Lamp Shade Joiner Name Role Phone Name, Nitin PIKE Primary Care Provider [phone] Reason for Visit * Reason Onset Date Comments triage 12/18/2022 Encounter Details Date Type Department Care Team ([facility] st Contact Info) Description 12/18/2022 Telephone [facility] 230 [place], [place] [phone] Name, MD Nitin 230 [place] [address] triage Social History Tobacco Use Types Packs/Day [...] 12/18/2022 2:35 PM EST Called pt. Via [email or web address] absorption plant operator helper [id number] Eduardo. Pt. States that she has a [...] phone. Please reach out to pt. With Ethiopian speaking another time to see what her [...] Office Visit [facility] 230 [place] [address] Name, MD Nitin 230 [place] [address] documented as of this encounter Visit Diagnoses Not on filedocumented in this encounter Care Teams Lamp Shade Joiner Relationship Specialty Start Date End Date Name, MD Nitin 230 [place] [address] PCP - General Family Medicine 08/26/17 [facility] 09/01/24 documented as of this encounter
--- OUTSIDE RECORDS SUMMARY | 2025-11-06 07:02 | XMS_ITS | Encounter Summary ---
Author Organization [employer] Address 75 [facility] 7t [place] [address] Care Team Providers Care Manager Financial Systems Name Role Phone Name, Nitin PIKE Primary Care Provider Reason for Visit * Reason Comments Med Refill Encounter Details Date Type Department Care Team (Late st Contact Info) Description 08/17/2025 Refill [facility] 230 [place], [place] [phone] Miryam Riley NP 230 [place], [place] [phone] Hypertension, unspecified type Social History Tobacco Use [...] AM EST Office Visit [facility] [address] [place] [address] NameNitin MD 230 [place] [address] documented as of this encounter Visit Diagnoses Diagnosis Hypertension, unspecified type documented in this encounter Additional Health Concerns Assessment Noted Time PHQ-9 Depression Total Score: 3 04/29/20 25 9:41 AM EDT documented as of this encounter Care Teams Manager Financial Systems Relationship Specialty Start Date End Date Name, MD Nitin [address] [place] [address] PCP - General Family Medicine 08/26/17 [facility] 09/01/24 documented as of this encounter
--- OUTSIDE RECORDS SUMMARY | 2025-11-06 07:02 | XMS_ITS | Encounter Summary ---
Author Organization [employer] Address 75 [facility] 7[address] [place] [address] Care Team Providers Care Grain Elevator Clerk Name Role Phone Name, Nitin PIKE Primary Care Provider [phone] Reason for Visit * Reason Comments Med Refill Encounter Details Date Type Department Care Team (Late st Contact Info) Description 01/09/2025 Refill [facility] 230 [place], [place] [phone] Name, MD Nitin 230 [place] [address] Hypertension, unspecified type Social History Tobacco Use [...] 11/07/2025 10:00 AM EST Office Visit [facility] [address] [place] [address] NameNitin MD [address] [place] [address] documented as of this encounter Visit Diagnoses Diagnosis Hypertension, unspecified type documented in this encounter Additional Health Concerns Assessment Noted Time PHQ-9 Depression Total Score: 6 02/13/20 9:14 AM EDT documented as of this encounter Care Teams Grain Elevator Clerk Relationship Specialty Start Date End Date NameNitin MD [address] [place] [address] PCP - General Family Medicine 08/26/17 [facility] 09/01/24 documented as of this encounter
--- OUTSIDE RECORDS SUMMARY | 2025-11-06 07:02 | XMS_ITS | Encounter Summary ---
Author Organization [employer] Address 75 [facility] 7t [place] [address] Care Team Providers Care Broadcast Technician Name Role Phone Name, Nitin PIKE Primary Care Provider [phone] Encounter Details Date Type Department Care Team (Late st Contact Info) Description 11/06/2022 Orders Only [facility] [address] [place], [place] [phone] Lisha Kelly LPN Social History Tobacco Use [...] Office Visit [facility] 230 [place] [address] NameNitin MD 230 [place] [address] documented as of this encounter Visit Diagnoses Not on filedocumented in this encounter Care Teams Broadcast Technician Relationship Specialty Start Date End Date Nitin Echevarria MD 230 [place] [address] PCP - General Family Medicine 08/26/17 [facility] 09/01/24 documented as of this encounter
--- OUTSIDE RECORDS SUMMARY | 2025-11-06 07:02 | XMS_ITS | Encounter Summary ---
Author Organization [employer] Address 75 [facility] 7t [place] [address] Care Team Providers Care Health Promotion Officer Name Role Phone Name, Nitin PIKE Primary Care Provider [phone] Reason for Visit * Reason Onset Date Comments ER Follow-up 05/04/2024 Encounter Details Date Type Department Care Team ([facility] Contact Info) Description 05/04/[address] [facility] 230 [place], [place] [phone] Name, MD Nitin 230 [place] [address] ER Follow-up Social History Tobacco Use Types [...] 11:01 AM EDT T/C to pt. Through [employer] id - [id number] for below message, No answer. LVM to call back [phone] . * Telephone Encounter - Adithya Solorzano - 05/04/2024 9:35 AM EDT Noreen with [facility] calling to report ED visit on : Date: 04/28 Hospital: [facility] Seen for: UTI, Nausea, Rash. Noreen advised will be forwarding message to team nurses. Please contact pt at [phone]. documented in this encounter Plan of Treatment Upcoming Encounters Date Type Department Care Team (Late st Contact Info) Description 11/07/2025 10:00 AM EST Office [address] [facility] 230 [place] [address] Name, MD Nitin 230 [place] [address] documented as of this encounter Visit Diagnoses Not on filedocumented in this encounter Additional Health Concerns Assessment Noted Time PHQ-9 Depression Total Score: 6 02/13/20 9:14 AM EDT documented as of this encounter Care Teams Health Promotion Officer Relationship Specialty Start Date End Date Name, MD Nitin [address] [place] [address] PCP - General Family Medicine 08/26/17 [facility] 09/01/24 documented as of this encounter
--- OUTSIDE RECORDS SUMMARY | 2025-11-06 07:02 | XMS_ITS | Encounter Summary ---
Author Organization [employer] Address 75 [facility] 7t [place] [address] Care Team Providers Care Component Assembler Name Role Phone Name, Nitin PIKE Primary Care Provider [phone] Reason for Visit * Reason Comments Med Refill Encounter Details Date Type Department Care Team ([facility] st Contact Info) Description 06/28/2024 Refill [facility] 230 [place], [place] [phone] Mel Anguiano FNP 230 [place] [address] Social History Tobacco Use Types Packs/Day Years [...] Visit [facility] 230 [place] [address] Name, MD Nitin 230 [place] [address] documented as of this encounter Visit Diagnoses Not on filedocumented in this encounter Additional Health Concerns Assessment Noted Time PHQ-9 Depression Total Score: 6 02/13/20 24 9:14 AM EDT documented as of this encounter Care Teams Component Assembler Relationship Specialty Start Date End Date Name, MD Nitin [address] [place] [address] PCP - General Family Medicine 08/26/17 [facility] 09/01/24 documented as of this encounter
--- OUTSIDE RECORDS SUMMARY | 2025-11-06 07:02 | XMS_ITS | Encounter Summary ---
Author Organization [employer] Address 75 [facility] 7t [place] [address] Care Team Providers Care Garbage Depot Worker Name Role Phone Name, Nitin PIKE Primary Care Provider [phone] Reason for Visit * Reason Onset Date Comments Results 08/29/2023 Encounter Details Date Type Department Care Team ([facility] st Contact Info) Description 08/29/2023 Telephone [facility] 230 [place], [place] [phone] Name, MD Nitin 230 [place] [address] Results Social History Tobacco Use Types Packs/Day [...] to urine results. Please contact pt at [phone] (Japanese) documented in this encounter Plan of Treatment Upcoming Encounters Date Type Department Care Team (Late st Contact Info) Description 11/07/2025 10:00 AM EST Office Visit [facility] [address] [place] [address] Name, MD Nitin [address] [place] [address] documented as of this encounter Visit Diagnoses Not on filedocumented in this encounter Additional Health Concerns Assessment Noted Time PHQ-9 Depression Total Score: 12 023 9:37 AM EDT documented as of this encounter Care Teams Garbage Depot Worker Relationship Specialty Start Date End Date Name, MD Nitin [address] [place] [address] PCP - General Family Medicine 08/26/17 [facility] 09/01/24 documented as of this encounter
--- OUTSIDE RECORDS SUMMARY | 2025-11-06 07:02 | XMS_ITS | Encounter Summary ---
Author Organization [employer] Address 75 [facility] 7t [place] [address] Care Team Providers Care Door Closer Name Role Phone Name, Nitin PIKE Primary Care Provider [phone] Reason for Visit * Reason Onset Date Comments Verbal Orders 12/15/2023 Encounter Details Date Type Department Care Team ([facility] st Contact Info) Description 12/15/2023 Telephone [facility] 230 [place], [place] [phone] Name, MD Nitin 230 [place] [address] Verbal Orders Social History Tobacco Use Types [...] 12:03 PM EST Tc from Josseline with [employer] requesting verbal order to see pt 2 times a week for 4 weeks for Occupational Therapy, please contact Joss[facility] at [phone] documented in this encounter Plan of Treatment Upcoming Encounters Date Type Department Care Team (Late st Contact Info) Description 11/07/2025 10:00 AM EST Office Visit [facility] 230 [place] [address] Name, MD Nitin 230 [place] [address] documented as of this encounter Visit Diagnoses Not on filedocumented in this encounter Additional Health Concerns Assessment Noted Time PHQ-9 Depression Total Score: 12 023 9:37 AM EDT documented as of this encounter Care Teams Door Closer Relationship Specialty Start Date End Date Name, MD Nitin 230 [place] [address] PCP - General Family Medicine 08/26/17 [facility] 09/01/24 documented as of this encounter
--- OUTSIDE RECORDS SUMMARY | 2025-11-06 07:02 | XMS_ITS | Encounter Summary ---
Author Organization [employer] Address 75 [facility] 7t [place] [address] Care Team Providers Care Public Health Sanitarian Name Role Phone Name, Nitin IPKE Primary Care Provider [phone] Encounter Details Date Type Department Care Team ([facility] Contact Info) Description 08/08/2023 Telephone [facility] MED[facility]INE [address] [place] [address] [phone] Name, MD Nitin [address] [place] [address] [phone] Social History Tobacco Use Types Packs/Day Years [...] Office Visit [facility] [address] [place] [address] [phone] Name, MD Nitin [address] [place] [address] [phone] documented as of this encounter Visit Diagnoses Not on filedocumented in this encounter Additional Health Concerns Assessment Noted Time PHQ-9 Depression Total Score: 12 023 9:37 AM EDT documented as of this encounter Care Teams Public Health Sanitarian Relationship Specialty Start Date End Date Name, MD Nitin 230 [place] [address] PCP - General Family Medicine 08/26/17 [facility] 09/01/24 documented as of this encounter
--- OUTSIDE RECORDS SUMMARY | 2025-11-06 07:02 | XMS_ITS | Encounter Summary ---
Author Organization [employer] Address [address] [facility] 7[address] [place] [address] Care Team Providers Care Roadmaster Name Role Phone Name, Nitin PIKE Primary Care Provider [phone] Reason for Visit * Reason Onset Date Comments Order(s) 12/09/2023 Encounter Details Date Type Department Care Team ([facility] Contact Info) Description 12/09/2023 Telephone [facility] 230 [place], [place] [phone] Name, MD Nitin 230 [place], [place] [phone] Order(s) Social History Tobacco Use Types Packs/Day [...] orders. If any questions please contact Noreen [phone]. documented in this encounter Plan of Treatment Upcoming Encounters Date Type Department Care Team (Late st Contact Info) Description 11/07/2025 10:00 AM EST Office Visit [facility] [address] [place] [address] Name, MD Nitin 230 [place] [address] documented as of this encounter Visit Diagnoses Not on filedocumented in this encounter Additional Health Concerns Assessment Noted Time PHQ-9 Depression Total Score: 12 023 9:37 AM EDT documented as of this encounter Care Teams Roadmaster Relationship Specialty Start Date End Date Name, MD Nitin [address] [place] [address] PCP - General Family Medicine 08/26/17 [facility] 09/01/24 documented as of this encounter
--- OUTSIDE RECORDS SUMMARY | 2025-11-06 07:02 | XMS_ITS | Encounter Summary ---
Author Organization [employer] Address 75 [facility] 7t [place] [address] Care Team Providers Care Wool Washer Name Role Phone Name, Nitin PIKE Primary Care Provider [phone] Reason for Visit * Reason Comments Med Refill Encounter Details Date Type Department Care Team ([facility] st Contact Info) Description 04/01/2024 Refill [facility] 230 [place], [place] [phone] Name, MD Nitin 230 [place] [address] Rash Social History Tobacco Use Types Packs/Day [...] AM EST Office Visit [facility] [address] [place] [address] NameNitin MD [address] [place] [address] documented as of this encounter Visit Diagnoses Diagnosis Rash Rash and other nonspecific skin eruption documented in this encounter Additional Health Concerns Assessment Noted Time PHQ-9 Depression Total Score: 6 02/13/20 24 9:14 AM EDT documented as of this encounter Care Teams Wool Washer Relationship Specialty Start Date End Date NameNitin MD [address] [place] [address] PCP - General Family Medicine 08/26/17 [facility] 09/01/24 documented as of this encounter
--- OUTSIDE RECORDS SUMMARY | 2025-11-06 07:02 | XMS_ITS | Encounter Summary ---
Author Organization [employer] Address 75 [facility] 7t [place] [address] Care Team Providers Care Auto Vinyl Top Installer Name Role Phone Name, Nitin PIKE Primary Care Provider [phone] Encounter Details Date Type Department Care Team (Late st Contact Info) Description 05/26/2023 Orders Only [facility] [address] [place] [address] [phone] Noreen Fox MD [address] [place] [address] [phone] Social History Tobacco Use Types Packs/Day Years [...] AM EST Office Visit [facility] [address] [place] [address] NameNitin MD 230 [place] [address] documented as of this encounter Visit Diagnoses Not on filedocumented in this encounter Care Teams Auto Vinyl Top Installer Relationship Specialty Start Date End Date Name, MD Nitin 230 [place] [address] PCP - General Family Medicine 08/26/17 [facility] 09/01/24 documented as of this encounter
--- OUTSIDE RECORDS SUMMARY | 2025-11-06 07:02 | XMS_ITS | Encounter Summary ---
Author Organization [employer] Address 75 [facility] 7[address] [place] [address] Care Team Providers Care Tapper Bit Name Role Phone Name, Nitin PIKE Primary Care Provider [phone] Reason for Visit * Reason Onset Date Comments ER Follow-up 05/31/2024 Encounter Details Date Type Department Care Team ([facility] Contact Info) Description 05/31/2024 Telephone [facility] MED[facility]INE 230 [place], [place] [phone] Name, MD Nitin 230 [place] [address] ER Follow-up Social History Tobacco Use Types [...] T/C to Pat ([facility]) [phone] for below message, no answer. LVM to call back on [phone]. * Telephone Encounter - Melany Santos RN - 05/31/2024 1:32 PM EDT DAVID T/C to pt. Through [employer] id - [id number] for below message, pt. Had recent fall and ED visit at [facility]. RN will request GRACE piedra from [facility]. Pt. Is doing good, states I am tired andsleeping. Pt. Dose not has any question or concern right now. Pt. Already has HDF apt. Schedule on 06/10/2024. Pt. Advised to give call to [facility] if any questions or concerns. Pt. Verbally agreed and understood. Please review and advise if needed. * Telephone Encounter - Adithya Solorzano - 05/31/2024 12:50 PM EDT Patient calling to report ED visit on : Date: 05/26 Hospital: [facility] Seen for: Fall, Back Pain Pat stated [...] [facility] 230 [place] [address] Name, MD Nitin 230 [place] [address] documented as of this encounter Visit Diagnoses Not on filedocumented in this encounter Additional Health Concerns Assessment Noted Time PHQ-9 Depression Total Score: 6 02/13/20 24 9:14 AM EDT documented as of this encounter Care Teams Tapper Bit Relationship Specialty Start Date End Date Name, MD Nitin [address] [place] [address] PCP - General Family Medicine 08/26/17 [facility] 09/01/24 documented as of this encounter
--- OUTSIDE RECORDS SUMMARY | 2025-11-06 07:02 | XMS_ITS | Encounter Summary ---
Author Organization [employer] Address 75 [facility] 7[address] [place] [address] Care Team Providers Care Sales Broker Name Role Phone Name, Nitin PIKE Primary Care Provider [phone] Reason for Visit * Reason Onset Date Comments FYI 01/21/2024 ER Follow-up 01/21/2024 Encounter Details Date Type Department Care Team ([facility] st Contact Info) Description 01/21/2024 Telephone [facility] 230 [place], [place] [phone] Name, MD Nitin 230 [place] [address] FYI; ER Follow-up Social History Tobacco Use [...] 1:54 PM EDT Message from [facility] noted. [facility] note sent to medical records. PCP does not rx Trazodone. Pt to f/u with psych prescriber. Pt is scheduled for f/u with pcp 02/13/24. * Telephone Encounter - Janette Huitron - 01/21/2024 9:45 AM EDT Tc from nata with [facility] ED calling in regards to pt. States pt was seen today for anxiety and is requesting trazodone. Will discharge pt with no medication change. Would also like to advise provider, pt was seen at [facility] on 01/17 for anxiety/insomnia as well documented in this encounter Plan of Treatment Upcoming Encounters Date Type Department Care Team (Late st Contact Info) Description 11/07/2025 10:00 AM EST Office Visit [facility] 230 [place] [address] Name, MD Nitin 230 [place] [address] documented as of this encounter Visit Diagnoses Not on filedocumented in this encounter Additional Health Concerns Assessment Noted Time PHQ-9 Depression Total Score: 12 023 9:37 AM EDT documented as of this encounter Care Teams Sales Broker Relationship Specialty Start Date End Date Name, MD Nitin 230 [place] [address] PCP - General Family Medicine 08/26/17 [facility] 09/01/24 documented as of this encounter
--- OUTSIDE RECORDS SUMMARY | 2025-11-06 07:02 | XMS_ITS | Encounter Summary ---
Author Organization [employer] Address 75 [facility] 7[address] [place] [address] Care Team Providers Care Hogshead Packer Name Role Phone Name, Nitin PIKE Primary Care Provider [phone] Reason for Visit * Reason Comments Med Refill Encounter Details Date Type Department Care Team (Late st Contact Info) Description 04/20/2025 Refill [facility] 230 [place] [address] Zechariah Cheung MD 230 [place] [address] Allergic rhinitis, unspecified seasonality, unspecified trigger Social [...] EST Office Visit [facility] [address] [place] [address] NameNitin MD 230 [place] [address] documented as of this encounter Visit Diagnoses Diagnosis Allergic rhinitis, unspecified seasonality, unspecified trigger documented in this encounter Additional Health Concerns Assessment Noted Time PHQ-9 Depression Total Score: 6 02/13/20 9:14 AM EDT documented as of this encounter Care Teams Hogshead Packer Relationship Specialty Start Date End Date Nitin Echevarria MD [address] [place] [address] PCP - General Family Medicine 08/26/17 [facility] 09/01/24 documented as of this encounter
--- OUTSIDE RECORDS SUMMARY | 2025-11-06 07:02 | XMS_ITS | Encounter Summary ---
Author Organization [employer] Address [address] [facility] [address] [place] [address] Care Team Providers Care Jewelry Repairer Name Role Phone Name, Nitin PIKE Primary Care Provider [phone] Reason for Visit * Reason Onset Date Comments Call Back Request 03/14/2025 Encounter Details Date Type Department Care Team ([facility] st Contact Info) Description 03/14/2025 Telephone [facility] MEDICINE [address] [place], [place] [phone] Name, MD Nitin [address] [place] [address] Call Back Request Social History Tobacco Use [...] [facility] MEDICINE [address] [place] [address] Name, MD Nitin [address] [place] [address] documented as of this encounter Visit Diagnoses Not on filedocumented in this encounter Additional Health Concerns Assessment Noted Time PHQ-9 Depression Total Score: 6 02/13/20 9:14 AM EDT documented as of this encounter Care Teams Jewelry Repairer Relationship Specialty Start Date End Date Name, MD Nitin [address] [place] [address] PCP - General Family Medicine 08/26/17 [facility] 09/01/24 documented as of this encounter
--- OUTSIDE RECORDS SUMMARY | 2025-11-06 07:02 | XMS_ITS | Encounter Summary ---
Author Organization [employer] Address [address] [facility] [address] [place] [address] Care Team Providers Care Technical Operator Name Role Phone Name, Nitin PIKE Primary Care Provider [phone] Reason for Visit * Reason Onset Date Comments Referral 08/24/2025 Encounter Details Date Type Department Care Team ([facility] st Contact Info) Description 08/24/2025 Telephone [facility] MEDICINE [address] [place], [place] [phone] Name, MD Nitin [address] [place] [address] Referral Social History Tobacco Use Types Packs/Day [...] Specialist: Physical therapy Facility Phone # : [phone] Fax #: [phone] documented in this encounter Plan of Treatment Upcoming Encounters Date Type Department Care Team (Late st Contact Info) Description 11/07/2025 10:00 AM EST Office Visit [facility] MEDICINE [address] [place], [place] [phone] Name, MD Nitin [address] [place] [address] documented as of this encounter Visit Diagnoses Not on filedocumented in this encounter Additional Health Concerns Assessment Noted Time PHQ-9 Depression Total Score: 3 04/29/20 9:41 AM EDT documented as of this encounter Care Teams Technical Operator Relationship Specialty Start Date End Date Name, MD Nitin [address] [place] [address] PCP - General Family Medicine 08/26/17 [facility] 09/01/24 documented as of this encounter
--- OUTSIDE RECORDS SUMMARY | 2025-11-06 07:02 | XMS_ITS | Encounter Summary ---
Author Organization [employer] Address [address] [facility] [address] [place] [address] Care Team Providers Care Stitchdown Thread Laster Name Role Phone Name, Nitin PIKE Primary Care Provider [phone] Reason for Visit * Reason Onset Date Comments Durable Medical Equipment 12/09/2023 Encounter Details Date Type Department Care Team ([facility] st Contact Info) Description 12/09/2023 Telephone [facility] MEDICINE 230 [place], [place] [phone] Name, MD Nitin [address] [place], [place] [phone] Durable Medical Equipment Social History Tobacco Use [...] EST DME rx faxed to [facility] as requested. RN will consult with S nurse and provide referral. * Telephone Encounter - Fozia Jacob RN - 12/09/2023 4:58 PM EST Call returned to [facility] at [facility] [phone] ext. [phone]. [facility] states that [facility] attempted to provide PT at home but pt refused. [facility] pt is requesting outpatient PT. [facility] pt is seeing a counselor more regularly and has agreed to VNA referral. Reports pt has had 3 falls in the past 2 months. [facility] states [facility] no longer has visiting nurses. [facility] recommends [facility] or [facility] for VNA referral. [facility] also requesting DME rx for rollator walker and a straight cane. Requests that DME rx be faxed to [phone]. Advised requests will be sent to pcp. * Telephone Encounter - Adithya Solorzano - 12/09/2023 4:25 PM EST Tc from [facility] requesting DME: Rollator walker . documented in this encounter Plan of Treatment Upcoming Encounters Date Type Department Care Team (Late st Contact Info) Description 11/07/2025 10:00 AM EST Office Visit [facility] MEDICINE [address] [place] [address] Name, MD Nitin [address] [place] [address] documented as of this encounter Visit Diagnoses Not on filedocumented in this encounter Additional Health Concerns Assessment Noted Time PHQ-9 Depression Total Score: 12 023 9:37 AM EDT documented as of this encounter Care Teams Stitchdown Thread Laster Relationship Specialty Start Date End Date Name, MD Nitin [facility] [place] [address] PCP - General Family Medicine 08/26/17 [facility] 09/01/24 documented as of this encounter
--- OUTSIDE RECORDS SUMMARY | 2025-11-06 07:02 | XMS_ITS | Encounter Summary ---
Author Organization [employer] Address [address] [facility] [address] [place] [address] Care Team Providers Care Manager Of Environmental Services Name Role Phone Name, Nitin PIKE Primary Care Provider [phone] Reason for Visit * Reason Onset Date Comments Hospital Follow-up 10/20/2024 Encounter Details Date Type Department Care Team ([facility] Contact Info) Description 10/20/2024 Telephone [facility] MEDICINE 230 [place], [place] [phone] Name, MD Nitni [address] [place] [address] Hospital Follow-up Social History Tobacco Use Types [...] pt requesting a HDF appt. Hospital: [facility] Date of admission: 10/17 Discharge date: 10/19 Diagnosed: High Blood Pressure and Fever Contact pt at [phone] *Send message to [facility] Coordinators documented in this encounter Plan of Treatment Upcoming Encounters Date Type Department Care Team (Late st Contact Info) Description 11/07/2025 10:00 AM EST Office Visit [facility] MEDICINE [address] [place] [address] Name, MD Nitin [address] [place] [address] documented as of this encounter Visit Diagnoses Not on filedocumented in this encounter Additional Health Concerns Assessment Noted Time PHQ-9 Depression Total Score: 6 02/13/20 24 9:14 AM EDT documented as of this encounter Care Teams Manager Of Environmental Services Relationship Specialty Start Date End Date Name, MD Nitin [address] [place] [address] PCP - General Family Medicine 08/26/17 [facility] 09/01/24 documented as of this encounter
[2025-11-06 07:18] VITALS: BP 147/81; PULSE 117; RESP 18; TEMP 37.2; O2SAT 95; BMI 28.2
--- NOTE | 2025-11-06 07:18 | ED.GENADULT ---
HPI - General Adult General Chief complaint: Anxiety Stated complaint: ANXIETY Time Seen by Provider: 11/06/25 07:18 History of Present Illness ED Provider: Ashleigh DUMONT narrative: The patient is an 80-year-old woman who is a frequent user of the emergency room. She is here today with her 2nd visit of the day. This is her 9th ER visit of the month. In September she presented 7 times. The patient claims that she is out of benzodiazepines. She is normally prescribed clonazepam 0.5 mg tablets, 21 tablets every 7 days. She last picked up a prescription for this medication on October 24 according to the state website. The patient tells me there was some problem with her prescription and a new prescription will not be available until FridayNovember 08. She says that she has a panic attack because she does not have her medications. She was here earlier this morning complaining of dizziness. Related Data Home Medications ?Medication ?Instructions ?Recorded ?Confirmed omeprazole 20 mg tablet,delayed 20 mg PO DAILY@0630 08/09/20 08/22/25 release aspirin 81 mg tablet,delayed 81 mg PO QAM 01/28/24 08/22/25 release bisacodyl 5 mg tablet,delayed 5 mg PO DAILY PRN constipation 01/28/24 08/22/25 release ferrous sulfate 325 mg (65 mg 325 mg PO DAILY 01/28/24 08/22/25 iron) tablet (FeroSul) melatonin 10 mg tablet,extended 10 mg PO BEDTIME PRN Insomnia 01/28/24 08/22/25 release multivitamin 1 tab PO QAM 01/28/24 08/22/25 rosuvastatin 20 mg tablet 20 mg PO BEDTIME 01/28/24 08/22/25 trazodone 50 mg tablet 50 mg PO BEDTIME 01/28/24 08/22/25 amlodipine 10 mg tablet 10 mg PO DAILY 02/09/24 08/22/25 acetaminophen 500 mg tablet 500 mg PO Q8H PRN pain 08/09/24 08/22/25 cholecalciferol (vitamin D3) 25 25 mcg PO DAILY 08/20/24 08/22/25 mcg (1,000 unit) tablet sertraline 100 mg tablet 100 mg PO DAILY 03/16/25 08/22/25 apixaban 5 mg tablet 5 mg PO BID 08/22/25 08/22/25 clonazepam 0.5 mg tablet 0.5 mg PO TID 08/22/25 08/22/25 fluticasone propionate 50 2 spray intranasal DAILY PRN 08/22/25 08/22/25 mcg/actuation nasal Allergic Symptoms spray,suspension (Flonase Allergy Relief) hydroxyzine HCl 25 mg tablet 10 mg PO DAILY PRN anxiety 08/22/25 08/22/25 ketotifen fumarate 0.025 % (0.035 1 drp ophthalmic (eye) BID PRN 08/22/25 08/22/25 %) eye drops allergies mirtazapine 45 mg tablet 45 mg PO BEDTIME 08/22/25 08/22/25 valsartan 160 mg tablet 160 mg PO QPM 08/22/25 08/22/25 Previous Rx's ?Medication ?Instructions ?Recorded metoprolol succinate 50 mg 50 mg PO DAILY #90 tabs 09/28/20 tablet,extended release 24 hr docusate sodium 100 mg capsule 200 mg (2 x 100 mg) PO BID #20 caps 02/24/25 (Colace) ibuprofen 200 mg tablet 200 mg PO Q6H PRN pain #20 tabs 07/24/25 meclizine 12.5 mg tablet 12.5 mg PO TID PRN dizziness or 07/26/25 vertigo #30 tabs meclizine 25 mg tablet 25 mg PO BID PRN dizziness #14 tabs 09/22/25 meclizine 25 mg tablet 25 mg PO BID PRN dizziness #14 tabs 10/10/25 meclizine 25 mg tablet 25 mg PO BID PRN dizziness #14 tabs 11/01/25 Allergies Allergy/AdvReac Type Severity Reaction Status Date / Time penicillin G (Penicillin G) Allergy Severe ITCHY/RASH Verified 11/06/25 07:20 Sulfa (Sulfonamide Allergy Severe ITCHY,RASH, Verified 11/06/25 07:20 Antibiotics) (Sulfa rash (Sulfonamides)) trimethoprim (From Bactrim) Allergy Severe HIVES Verified 11/06/25 07:20 Penicillins Allergy Intermediate Hives Verified 11/06/25 07:20 sulfamethoxazole (From Allergy Mild Hives Verified 11/06/25 07:20 Bactrim) Review of Systems Review of Systems: Yes all other systems are reviewed and are negative PMFSH Past Medical History 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 or 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 (spiritual counselor) Alcohol intake: never Patient Tobacco Use Status: Never used Tobacco Smoked in Last 30 Days: No Use of substances other than those prescribed or required for medical reasons: No Advance Directives: Yes Advance Directives on File: Yes Advance Directives Date on File: 01/28/24 Do you have a plan to hurt others: No Plan service: No Physical Exam ED Vital Signs: Vital Signs - 24 hr 11/06/25 07:18 11/06/25 08:38 Temperature 98.9 F 98.9 F Pulse Rate 117 H 117 H Respiratory Rate 18 18 Blood Pressure 147/81 H 147/81 H Pulse Oximetry 95 95 Oxygen Delivery Method Room Air Room Air BMI result Body Mass Index 28.2 Const Other: The patient is an anxious appearing 80-year-old woman who was awake and alert. She does not appear in acute distress aside from her anxiety. HENMT Other: The face is symmetrical. ?Mucous membranes moist. Eyes General: appearance normal, both eyes and all related structures Neck Neck: Yes normal visual inspection, Yes full ROM and Yes no JVD Resp Effort & Inspection: normal respiratory effort Auscultation: clear to auscultation bilaterally Cardio Rate: regular rate Rhythm: regular rhythm Heart sounds: S1 normal heart sound present and S2 normal heart sound present GI Other: Abdomen is soft and nontender Skin Other: The skin is dry and unremarkable Neuro Other: The patient is awake and alert. She has a an anxious demeanor but otherwise her mental status seems clear. Cranial nerves are grossly intact. She moves her extremities symmetrically and appropriately. She has a steady gait. Extrem Other: No peripheral edema Medical Decision Making Medical Decision Making MDM Narrative: The patient is an 80-year-old woman who presents once again complaining of anxiety and is requesting benzodiazepines. She was told that we would not be providing any benzodiazepines. She ultimately walked out before receiving her discharge instructions. Discharge Plan Discharge Clinical Impression: Anxiety Patient Disposition: Home, Self-Care Additional Instructions: We will not be providing you with any anti-anxiety medications when you run out of your regular medications. Please follow up with the [facility] tomorrow to discuss this issue further. Prescriptions: No Action metoprolol succinate 50 mg tablet extended release 24 hr 50 mg PO DAILY Qty: 90 2RF omeprazole 20 mg Tablet,Delayed Release (Dr/Ec) 20 mg PO DAILY@0630 meclizine 12.5 mg tablet 12.5 mg PO TID PRN (Reason: dizziness or vertigo) Qty: 30 0RF meclizine 25 mg tablet 25 mg PO BID PRN (Reason: dizziness) Qty: 14 0RF meclizine 25 mg tablet 25 mg PO BID PRN (Reason: dizziness) Qty: 14 0RF trazodone 50 mg tablet 50 mg PO BEDTIME ferrous sulfate [FeroSul] 325 mg (65 mg iron) tablet 325 mg PO DAILY bisacodyl 5 mg tablet,delayed release (DR/EC) 5 mg PO DAILY PRN (Reason: constipation) rosuvastatin 20 mg tablet 20 mg PO BEDTIME aspirin 81 mg tablet,delayed release (DR/EC) 81 mg PO QAM multivitamin Tablet 1 tab PO QAM melatonin 10 mg tablet extended release 10 mg PO BEDTIME PRN (Reason: Insomnia) cholecalciferol (vitamin D3) 25 mcg (1,000 unit) tablet 25 mcg PO DAILY acetaminophen 500 mg tablet 500 mg PO Q8H PRN (Reason: pain) docusate sodium [Colace] 100 mg capsule 200 mg PO BID Qty: 20 0RF ibuprofen 200 mg tablet 200 mg PO Q6H PRN (Reason: pain) Qty: 20 0RF ketotifen fumarate 0.025 % (0.035 %) drops 1 drp ophthalmic (eye) BID PRN (Reason: allergies) mirtazapine 45 mg tablet 45 mg PO BEDTIME clonazepam 0.5 mg tablet 0.5 mg PO TID hydroxyzine HCl 25 mg tablet 10 mg PO DAILY PRN (Reason: anxiety) fluticasone propionate [Flonase Allergy Relief] 50 mcg/actuation spray,suspension 2 spray intranasal DAILY PRN (Reason: Allergic Symptoms) Rx Instructions: administer into each nostril apixaban 5 mg tablet 5 mg PO BID valsartan 160 mg tablet 160 mg PO QPM meclizine 25 mg tablet 25 mg PO BID PRN (Reason: dizziness) Qty: 14 0RF sertraline 100 mg tablet 100 mg PO DAILY amlodipine 10 mg tablet 10 mg PO DAILY Referrals: Name,MD Nitin [Primary Care Provider, Internal Medicine] Interventions: ED Discharge Assessment Last Done: 11/06/25 08:38 Discharge Date/Time: 11/06/25 08:39 Print Language: Tamazight
--- NOTE | 2025-11-06 07:54 | PC.NURSE ---
patient a&ox3, rr equal/non labored, pt has no complaints of pain or discomfort, pt just wanting prescriptions. pt has been moved to turner bed for hospital convenience.
--- NOTE | 2025-11-06 08:37 | PC.NURSE ---
pt being discharged by provider with no prescriptions/medication. pt mad got dressed and wouldnt allow repeat vitals. pt left without taking paperwork.
[2025-11-06 08:38] VITALS: BP 147/81; PULSE 117; RESP 18; TEMP 37.2; O2SAT 95
== END 2025-11-06 08:39 | disposition home or self-care (01) ==
PROVIDERS: Emergency Provider Emergency Medicine; PCP Internal Medicine Geriatric Medicine
DX: F41.9 Anxiety disorder, unspecified (principal); I10 Essential (primary) hypertension
CPT/HCPCS: 99283

== ENCOUNTER 2025-11-06 20:44 | Emergency (ER) | payer OTHER, SELFPAY ==
[2025-11-06 20:53] VITALS: BP 129/76; PULSE 95; O2SAT 98
[2025-11-06 20:55] VITALS: BP 147/81; PULSE 90; RESP 20; TEMP 36.8; O2SAT 95; BMI 25.7
--- OUTSIDE RECORDS SUMMARY | 2025-11-06 21:05 | XMS_ITS | Encounter Summary ---
Author Organization [employer] Address [address] [facility] [address] [place] [address] Care Team Providers Care Drop Forger Helper Name Role Phone Name, Nitin PIKE Primary Care Provider [phone] Reason for Visit * Reason Onset Date Comments ER Follow-up 05/31/2024 Encounter Details Date Type Department Care Team ([facility] Contact Info) Description 05/31/2024 Telephone [facility] MEDICINE [address] [place], [place] [phone] Name, MD Nitin [address] [place] [address] ER Follow-up Social History Tobacco Use Types [...] EDT T/C to Pat ([facility]) [phone] for below message, no answer. LVM to call back on [phone]. * Telephone Encounter - Melany Santos RN - 05/31/2024 1:32 PM EDT DAVID T/C to pt. Through DoApp id - [id number] for below message, pt. Had recent fall and ED visit at [facility]. RN will request GRACE piedra from [facility]. Pt. Is doing good, states I am tired andsleeping. Pt. Dose not has any question or concern right now. Pt. Already has HDF apt. Schedule on 06/10/2024. Pt. Advised to give call to [facility] if any questions or concerns. Pt. [...] Description 11/07/2025 10:00 AM EST Office Visit [facility] MEDICINE [address] [place] [address] Name, MD Nitin [address] [place] [address] documented as of this encounter Visit Diagnoses Not on filedocumented in this encounter Additional Health Concerns Assessment Noted Time PHQ-9 Depression Total Score: 6 02/13/20 24 9:14 AM EDT documented as of this encounter Care Teams Drop Forger Helper Relationship Specialty Start Date End Date Name, MD Nitin [address] [place] [address] PCP - General Family Medicine 08/26/17 [facility] 09/01/24 documented as of this encounter
--- OUTSIDE RECORDS SUMMARY | 2025-11-06 21:05 | XMS_ITS | Encounter Summary ---
Author Organization [employer] Address [address] [facility] 7[address] [place] [address] Care Team Providers Care Greenskeeper Supervisor Name Role Phone Name, Nitin PIKE Primary Care Provider [phone] Reason for Visit * Reason Onset Date Comments Results 08/29/2023 Encounter Details Date Type Department Care Team ([facility] st Contact Info) Description 08/29/2023 Telephone [facility] MEDICINE 230 [place], [place] [phone] Name, MD Nitin [address] [place] [address] Results Social History Tobacco Use Types Packs/Day [...] 09/01/2023 11:51 AM EDT Pt evaluated in [facility] today and is scheduled with pcp 09/03/23. * Telephone Encounter - Janette Huitron - 08/29/2023 4:06 PM EDT Tc from pt requesting a call in regards to urine results. Please contact pt at [phone] (Hungarian) documented in this encounter Plan of Treatment Upcoming Encounters Date Type Department Care Team (Late st Contact Info) Description 11/07/2025 10:00 AM EST Office Visit [facility] MEDICINE [address] [place] [phone] Name, MD Nitin [address] [place] [address] documented as of this encounter Visit Diagnoses Not on filedocumented in this encounter Additional Health Concerns Assessment Noted Time PHQ-9 Depression Total Score: 12 023 9:37 AM EDT documented as of this encounter Care Teams Greenskeeper Supervisor Relationship Specialty Start Date End Date Name, MD Nitin [address] [place] [address] PCP - General Family Medicine 08/26/17 [facility] 09/01/24 documented as of this encounter
--- OUTSIDE RECORDS SUMMARY | 2025-11-06 21:05 | XMS_ITS | Encounter Summary ---
Author Organization [employer] Address [address] [facility] [address] [place] [address] Care Team Providers Care Customer Success Specialist Name Role Phone Name, Nitin PIKE Primary Care Provider [phone] Reason for Visit * Reason Comments Med Refill Encounter Details Date Type Department Care Team (Late st Contact Info) Description 07/25/2025 Refill [facility] [address] [place], [place] [phone] Name, MD Nitin [address] [place] [address] Social History Tobacco Use Types Packs/Day Years [...] 11/07/2025 10:00 AM EST Office Visit [facility] MEDICINE [address] [place] [address] NameNitin MD [address] [place] [address] documented as of this encounter Visit Diagnoses Not on filedocumented in this encounter Additional Health Concerns Assessment Noted Time PHQ-9 Depression Total Score: 3 04/29/20 25 9:41 AM EDT documented as of this encounter Care Teams Customer Success Specialist Relationship Specialty Start Date End Date NameNitin MD [address] [place] [phone] PCP - General Family Medicine 08/26/17 [facility] 09/01/24 documented as of this encounter
--- OUTSIDE RECORDS SUMMARY | 2025-11-06 21:05 | XMS_ITS | Encounter Summary ---
Author Organization [employer] Address [address] [facility] [address] [place] [address] Care Team Providers Care Commercial Carpenter Name Role Phone Name, Nitin PIKE Primary Care Provider [phone] Reason for Visit * Reason Comments Med Refill Encounter Details Date Type Department Care Team (Late st Contact Info) Description 08/17/2025 Refill [facility] MEDICINE [address] [place], [place] [phone] Miryam Riley NP 230 [place], [place] [phone] Hypertension, unspecified type Social History Tobacco Use [...] Visit [facility] MEDICINE [address] [place] [address] NameNitin MD 230 [place] [address] documented as of this encounter Visit Diagnoses Diagnosis Hypertension, unspecified type documented in this encounter Additional Health Concerns Assessment Noted Time PHQ-9 Depression Total Score: 3 04/29/20 25 9:41 AM EDT documented as of this encounter Care Teams Commercial Carpenter Relationship Specialty Start Date End Date Name, MD Nitin [address] [place] [address] PCP - General Family Medicine 08/26/17 [facility] 09/01/24 documented as of this encounter
--- OUTSIDE RECORDS SUMMARY | 2025-11-06 21:05 | XMS_ITS | Encounter Summary ---
Author Organization [employer] Address [address] [facility] [address] [place] [address] Care Team Providers Care Refrigeration Person Name Role Phone Name, Nitin PIKE Primary Care Provider [phone] Reason for Visit * Reason Comments Med Refill Encounter Details Date Type Department Care Team ([facility] st Contact Info) Description 06/28/2024 Refill [facility] 230 [place], [place] [phone] Mel Anguiano FNP [address] [place] [address] Social History Tobacco Use Types Packs/Day Years [...] AM EST Office Visit [facility] MEDICINE [address] [place] [address] Name, MD Nitin 230 [place] [address] documented as of this encounter Visit Diagnoses Not on filedocumented in this encounter Additional Health Concerns Assessment Noted Time PHQ-9 Depression Total Score: 6 02/13/20 24 9:14 AM EDT documented as of this encounter Care Teams Refrigeration Person Relationship Specialty Start Date End Date Name, MD Nitin [address] [place] [address] PCP - General Family Medicine 08/26/17 [facility] 09/01/24 documented as of this encounter
--- OUTSIDE RECORDS SUMMARY | 2025-11-06 21:05 | XMS_ITS | Encounter Summary ---
Author Organization [employer] Address [address] [facility] [address] [place] [address] Care Team Providers Care Video Game Programmer Name Role Phone Name, Nitin PIKE Primary Care Provider [phone] Reason for Visit * Reason Onset Date Comments Med Refill 11/08/2024 Encounter Details Date Type Department Care Team ([facility] st Contact Info) Description 11/08/2024 Telephone [facility] [address] [place], [place] [phone] Name, MD Nitin 230 [place] [address] Med Refill Social History Tobacco Use Types [...] 5 MG tablet To be sent to: [facility] - [place], [place] - [address] [facility] documented in this encounter Plan of Treatment Upcoming Encounters Date Type Department Care Team ([facility] st Contact Info) Description 11/07/2025 10:00 AM EST Office Visit [facility] [address] [place] [address] Name, MD Nitin [address] [place] [address] documented as of this encounter Visit Diagnoses Not on filedocumented in this encounter Additional Health Concerns Assessment Noted Time PHQ-9 Depression Total Score: 6 02/13/20 24 9:14 AM EDT documented as of this encounter Care Teams Video Game Programmer Relationship Specialty Start Date End Date Name, MD Nitin [address] [place] [address] PCP - General Family Medicine 08/26/17 [facility] 09/01/24 documented as of this encounter
--- OUTSIDE RECORDS SUMMARY | 2025-11-06 21:05 | XMS_ITS | Encounter Summary ---
Author Organization [employer] Address 75 [facility] [address] [place] [address] Care Team Providers Care Unionmelt Operator Name Role Phone Name, Nitin PIKE Primary Care Provider [phone] Encounter Details Date Type Department Care Team (Late st Contact Info) Description 05/26/[address] [facility] [address] [place] [address] [phone] Noreen Fox MD [address] [place] [address] [phone] Social History Tobacco Use Types Packs/Day Years [...] EST Office Visit [facility] [address] [place] [address] NameNitin MD [address] [place] [address] documented as of this encounter Visit Diagnoses Not on filedocumented in this encounter Care Teams Unionmelt Operator Relationship Specialty Start Date End Date Name, MD Nitin [address] [place] [address] PCP - General Family Medicine 08/26/17 [facility] 09/01/24 documented as of this encounter
--- OUTSIDE RECORDS SUMMARY | 2025-11-06 21:05 | XMS_ITS | Encounter Summary ---
Author Organization [employer] Address [address] [facility] [address] [place] [address] Care Team Providers Care Polishing Machine Tender Name Role Phone Name, Nitin PIKE Primary Care Provider [phone] Reason for Visit * Reason Comments Med Refill Encounter Details Date Type Department Care Team (Late st Contact Info) Description 04/20/[address] [facility] 230 [place] [address] Zechariah Cheung MD [address] [place] [address] Allergic rhinitis, unspecified seasonality, unspecified trigger Social [...] 11/07/2025 10:00 AM EST Office Visit [facility] [address] [place] [address] NameNitin MD [address] [place] [address] documented as of this encounter Visit Diagnoses Diagnosis Allergic rhinitis, unspecified seasonality, unspecified trigger documented in this encounter Additional Health Concerns Assessment Noted Time PHQ-9 Depression Total Score: 6 02/13/20 9:14 AM EDT documented as of this encounter Care Teams Polishing Machine Tender Relationship Specialty Start Date End Date Nitin Echevarria MD [address] [place] [address] PCP - General Family Medicine 08/26/17 [facility] 09/01/24 documented as of this encounter
--- OUTSIDE RECORDS SUMMARY | 2025-11-06 21:05 | XMS_ITS | Encounter Summary ---
Author Organization [employer] Address [address] [facility] [address] [place] [address] Care Team Providers Care Telegraphic Typewriter Operator Name Role Phone Name, Nitin PIKE Primary Care Provider [phone] Reason for Visit * Reason Onset Date Comments Referral 08/24/2025 Encounter Details Date Type Department Care Team ([facility] st Contact Info) Description 08/24/2025 Telephone [facility] MEDICINE 230 [place], [place] [phone] Name, MD Nitin 230 [place] [address] Referral Social History Tobacco Use Types Packs/Day [...] TIME: 10 am Facility Name: [facility] Type of Specialist: Physical therapy Facility Phone # : [phone] Fax #: [phone] documented in this encounter Plan of Treatment Upcoming Encounters Date Type Department Care Team (Late st Contact Info) Description 11/07/2025 10:00 AM EST Office Visit [facility] MED[facility] 230 [place], [place] [phone] Name, MD Nitin [address] [place] [address] documented as of this encounter Visit Diagnoses Not on filedocumented in this encounter Additional Health Concerns Assessment Noted Time PHQ-9 Depression Total Score: 3 04/29/20 9:41 AM EDT documented as of this encounter Care Teams Telegraphic Typewriter Operator Relationship Specialty Start Date End Date Name, MD Nitin [address] [place] [address] PCP - General Family Medicine 08/26/17 [facility] 09/01/24 documented as of this encounter
--- OUTSIDE RECORDS SUMMARY | 2025-11-06 21:05 | XMS_ITS | Encounter Summary ---
Author Organization [employer] Address 75 [facility] [address] [place] [address] Care Team Providers Care French Teacher Name Role Phone Name, Nitin PIKE Primary Care Provider [phone] Reason for Visit * Reason Onset Date Comments ER Follow-up 05/04/2024 Encounter Details Date Type Department Care Team ([facility] Contact Info) Description 05/04/2024 Telephone [facility] MEDICINE 230 [place], [place] [phone] Name, MD Nitin 230 [place] [address] ER Follow-up Social History Tobacco Use Types [...] 11:01 AM EDT T/C [place] pt. [place] - [id number] for below message, No answer. LVM to call back [phone] . * Telephone Encounter - Adithya Solorzano - 05/04/2024 9:35 AM EDT Noreen with [facility] calling to report ED visit on : Date: 04/28 Hospital: [facility] Seen for: UTI, Nausea, Rash. Noreen advised will be forwarding message to team nurses. Please contact pt at [phone]. documented in this encounter Plan of Treatment Upcoming Encounters Date Type Department Care Team (Late st Contact Info) Description 11/07/2025 10:00 AM EST Office Visit [facility] MEDICINE [address] [place] [address] Name, MD Nitin 230 [place] [address] documented as of this encounter Visit Diagnoses Not on filedocumented in this encounter Additional Health Concerns Assessment Noted Time PHQ-9 Depression Total Score: 6 02/13/20 9:14 AM EDT documented as of this encounter Care Teams French Teacher Relationship Specialty Start Date End Date Name, MD Nitin [address] [place] [address] PCP - General Family Medicine 08/26/17 [facility] 09/01/24 documented as of this encounter
--- OUTSIDE RECORDS SUMMARY | 2025-11-06 21:05 | XMS_ITS | Encounter Summary ---
Author Organization [employer] Address 75 [facility] [address] [place] [address] Care Team Providers Care Aircraft Systems Repairer Name Role Phone Name, Nitin PIKE Primary Care Provider [phone] Reason for Visit * Reason Onset Date Comments Hospital Follow-up 10/20/2024 Encounter Details Date Type Department Care Team ([facility] Contact Info) Description 10/20/2024 Telephone [facility] MED[facility] 230 [place], [place] [phone] Name, MD Nitin 230 [place] [address] Hospital Follow-up Social History Tobacco Use Types [...] from pt requesting a HDF appt. [place] [facility] Date of admission: 10/17 Discharge date: 10/19 Diagnosed: High Blood Pressure and Fever Contact pt at [phone] *Send message to [facility] documented in this encounter Plan of Treatment Upcoming Encounters Date Type Department Care Team (Late st Contact Info) Description 11/07/2025 10:00 AM EST Office Visit [facility] [address] [place] [address] Name, MD Nitin [address] [place] [address] documented as of this encounter Visit Diagnoses Not on filedocumented in this encounter Additional Health Concerns Assessment Noted Time PHQ-9 Depression Total Score: 6 02/13/20 24 9:14 AM EDT documented as of this encounter Care Teams Aircraft Systems Repairer Relationship Specialty Start Date End Date Name, MD Nitin [address] [place] [address] PCP - General Family Medicine 08/26/17 [facility] 09/01/24 documented as of this encounter
--- OUTSIDE RECORDS SUMMARY | 2025-11-06 21:05 | XMS_ITS | Clinical Summary ---
Author Organization [facility] Facility Address [address] [address] Care Team Providers Care Shrinker Name Role Phone Name, Nitin PIKE Primary Care Provider [phone] Allergies Active Allergy Reactions Criticality Noted Date [...] patient's age to complete this topic [place] [address] MCR ([id number]) [place] [phone] [facility] MCR ([id number]) Care Teams Shrinker Relationship Specialty Start Date End Date Name, MD Nitin [address] [place] [address] PCP - General Internal Medicine 10/15/22
--- OUTSIDE RECORDS SUMMARY | 2025-11-06 21:05 | XMS_ITS | Clinical Summary ---
Author Organization [facility] Address [address] [place] [address] Phone Care Team Providers Care Qc Scientist Name Role Phone Physician, No Pcp Primary [...] mmol/L LAB CHEMISTRY METHOD 09/22/2024 3:15 AM [facility] Chloride 98 96 - 110 mmol/L LAB CHEMISTRY METHOD 09/22/2024 3:15 AM [facility] CO2 28 21 - 32 mmol/L LAB CHEMISTRY METHOD 09/22/2024 3:15 AM [facility] Anion Gap 6 3 - 11 LAB CHEMISTRY METHOD 09/22/2024 3:15 AM [facility] Glucose 119(H) 70 - 100 mg/dL LAB CHEMISTRY METHOD 09/22/2024 3:15 AM [facility] BUN 25 5 - 25 mg/dL LAB CHEMISTRY METHOD 09/22/2024 3:15 AM [facility] Creatinine 1.18(H) 0.50 - 1.10 mg/dL LAB CHEMISTRY METHOD 09/22/2024 3:15 AM [facility] eGFR 47(L) >=60 mL/min/1. 73m2 LAB CHEMISTRY METHOD 09/22/2024 3:15 AM [facility] Comment:Calculation based on the Chronic Kidney Disease Epidemiology Collaboration (CKD-EPI) equation refit without adjustment for race. BUN/Creatinine Ratio 21.2 LAB CHEMISTRY METHOD 09/22/2024 3:15 AM [facility] Calcium 9.3 8.5 - 10.5 mg/dL LAB CHEMISTRY METHOD 09/22/2024 3:15 AM [facility] AST (SGOT) 37 10 - 42 unit/L LAB CHEMISTRY METHOD 09/22/2024 3:15 AM [facility] ALT (SGPT) 25 10 - 60 unit/L LAB CHEMISTRY METHOD 09/22/2024 3:15 AM [facility] Alkaline Phosphatase 77 42 - 121 unit/L LAB CHEMISTRY METHOD 09/22/2024 3:15 AM EST [facility] Total Protein 8.0 6.0 - 8.0 g/dL LAB CHEMISTRY METHOD 09/22/2024 3:15 AM EST [facility] Albumin 4.2 3.2 - 5.0 g/dL LAB CHEMISTRY METHOD 09/22/2024 3:15 AM EST [facility] Total Bilirubin 0.4 0.0 - 1.4 mg/dL LAB CHEMISTRY METHOD 09/22/2024 3:15 AM EST [facility] Blood Venous blood specimen / Unknown Venipuncture / Unknown 09/22/2024 2:28 AM EST 09/22/2024 2:31 AM EST us Paul RUIZ LAB BLOOD ORDERABLES Final Resul t [facility] ([facility]) [facility] [address] [place] [address], from Last 3 Months or Most Recently Relevant to Health Maintenance Insurance [facility] MEDIC[facility] Member Subscriber Plan / Payer (Ef fective 2021-Present) Name:Noreen Wing Relation to Subscriber:Self Name:Noreen Wing Payer ID:[id number] Group ID:[id number] Type:Not on file Address: [address] [id number] Care Teams Qc Scientist Relationship Specialty Start Date End Date Physician, No Pcp PCP - General 09/22/24
--- OUTSIDE RECORDS SUMMARY | 2025-11-06 21:05 | XMS_ITS | Encounter Summary ---
Author Organization [employer] Address [address] [facility] [address] [place] [address] Care Team Providers Care Marzipan Maker Name Role Phone Name, Nitin PIKE Primary Care Provider [phone] Reason for Visit * Reason Comments Med Refill Encounter Details Date Type Department Care Team ([facility] st Contact Info) Description 04/01/2024 Refill [facility] MEDICINE [address] [place], [place] [phone] Name, MD Nitin [address] [place] [address] Rash Social History Tobacco Use Types Packs/Day [...] Description 11/07/2025 10:00 AM EST Office Visit [facility] MEDICINE [address] [place] [address] NameNitin MD [address] [place] [address] documented as of this encounter Visit Diagnoses Diagnosis Rash Rash and other nonspecific skin eruption documented in this encounter Additional Health Concerns Assessment Noted Time PHQ-9 Depression Total Score: 6 02/13/20 24 9:14 AM EDT documented as of this encounter Care Teams Marzipan Maker Relationship Specialty Start Date End Date NameNitin MD [address] [place] [address] PCP - General Family Medicine 08/26/17 [facility] 09/01/24 documented as of this encounter
--- OUTSIDE RECORDS SUMMARY | 2025-11-06 21:06 | XMS_ITS | Encounter Summary ---
Author Organization [employer] Address [address] [facility] [address] [place] [address] Care Team Providers Care Salesperson Burial Needs Name Role Phone Name, Nitin PIKE Primary Care Provider [phone] Encounter Details Date Type Department Care Team (Late st Contact Info) Description 11/06/2022 Orders Only [facility] [address] [place], [place] [phone] Lisha Kelly LPN Social History Tobacco Use [...] EST Office Visit [facility] MEDIC[facility] [address] [place] [address] NameNitin MD [address] [place] [address] documented as of this encounter Visit Diagnoses Not on filedocumented in this encounter Care Teams Salesperson Burial Needs Relationship Specialty Start Date End Date Nitin Echevarria MD [address] [place] [address] PCP - General Family Medicine 08/26/17 [facility] 09/01/24 documented as of this encounter
--- OUTSIDE RECORDS SUMMARY | 2025-11-06 21:06 | XMS_ITS | Encounter Summary ---
Author Organization [employer] Address [address] [facility] [address] [place] [address] Care Team Providers Care Space Officer Name Role Phone Name, Nitin PIKE Primary Care Provider Reason for Visit * Reason Comments Med Refill Encounter Details Date Type Department Care Team (Late st Contact Info) Description 08/16/2024 Refill [facility] [address] [place], [place] [phone] Name, MD Nitin [address] [place] [address] Heartburn Social History Tobacco Use Types Packs/Day [...] EST Office Visit [facility] MEDICINE [address] [place] [address] NameNitin MD [address] [place] [address] documented as of this encounter Visit Diagnoses Diagnosis Heartburn documented in this encounter Additional Health Concerns Assessment Noted Time PHQ-9 Depression Total Score: 6 02/13/20 24 9:14 AM EDT documented as of this encounter Care Teams Space Officer Relationship Specialty Start Date End Date NameNitin MD [address] [place] [address] PCP - General Family Medicine 08/26/17 [facility] 09/01/24 documented as of this encounter
--- OUTSIDE RECORDS SUMMARY | 2025-11-06 21:06 | XMS_ITS | Encounter Summary ---
Author Organization [employer] Address [address] [facility] [address] [place] [address] Care Team Providers Care Jewelry Jobber Name Role Phone Name, Nitin PIKE Primary Care Provider Encounter Details Date Type Department Care Team ([facility] Contact Info) Description 12/17/2022 Orders Only [facility] [address] [place], [place] [phone] Lisha Kelly LPN Social History Tobacco Use [...] EST Office Visit [facility] [address] [place] [address] Nitin Echevarria MD [address] [place] [address] documented as of this encounter Visit Diagnoses Not on filedocumented in this encounter Care Teams Jewelry Jobber Relationship Specialty Start Date End Date NameNitin MD [address] [place] [address] PCP - General Family Medicine 08/26/17 [facility] 09/01/24 documented as of this encounter
--- OUTSIDE RECORDS SUMMARY | 2025-11-06 21:06 | XMS_ITS | Clinical Summary ---
Author Organization [employer] Address [address] [place] [address] [address] [place] [address] Care Team Providers Care Edi Programmer Analyst Name Role Phone Name, Nitin PIKE Primary Care Provider [phone] Allergies Active Allergy Reactions Criticality Noted Date [...] MOUTH EVERY 8 HOURS NEEDED FOR PAIN (NEPALI LABEL) 90 tablet 025 Active omeprazole (PriLOSEC) [...] EST 2024 Diclofenac Sodium 1 % gelIndications:Ac algaaciq right-sided low back pain without sciatica Apply [...] EST): Symptomatic measures Rest Major neurocognitive disorder ([facility]) 11/02/20 Acute otitis media [...] precautions advised Stage 3a chronic kidney disease ([facility]) 2022 Headache 01/02/2023 Overview (12/18/2023): Last Assessment [...] it calms her down. I called [facility] pharmacy to attempt a med rec they instructed me that she is on med box and one week at a time prescriptions because she would break into her med boxes to take more Ambien or xanax. She is being seen by Izzy Perea at [facility]. He is aware of her [...] I received a call from the [facility] pharmacy instructing me that she [...] Type Department Care Team Description 10/20/2025 Refill [facility] MEDICINE [address] [place] [address] Name, MD Nitin 10/19/2025 Refill [facility] MED & PEDS [address] [place] [address] Name, MD Nitin Chronic constipation; Vitamin D deficiency 10/03/2025 Orders Only GENERIC EXTERNAL DATA DEPARTMENT Provider, Generic External Data 09/29/2025 8:40 AM EST Office Visit [facility]ALK[facility] [address] [place] [address] Zach Javier MD Acute right-sided low back pain without sciatica (Primary Dx); Vertigo 09/29/2025 Travel 09/28/2025 Refill [facility] MED & PEDS [address] [place] [address] Nitin Echevarria MD Vitamin D deficiency 09/27/2025 Refill [facility] P[facility] [address] [place] [address] Nitin Echevarria MD 09/22/[address] [address] Nitin Echevarria MD Nurse Triage 09/22/2025 Orders Only GENERIC EXTERNAL DATA DEPARTMENT Provider, Generic External Data 09/21/[address] [address] Nitin Echevarria MD Request For Order(s); Referral 09/19/2025 Refill [facility] MED & PEDS [address] [place] [address] Nitin Echevarria MD 09/19/2025 Orders Only GENERIC EXTERNAL DATA DEPARTMENT Provider, Generic External Data 09/18/2025 Orders Only [facility] External Provider, [facility] 09/17/2025 Orders Only GENERIC EXTERNAL DATA DEPARTMENT Provider, Generic External Data 09/09/[address] [address] Thea Warren FNP Results 09/06/2025 1:30 PM EDT Office Visit [address] [address] Thea Warren FNP Acute pain of left knee (Primary Dx); Urinary frequency; Acute cystitis without hematuria 09/06/2025 Orders Only [address] [address] Thea Warren FNP 09/06/2025 Travel 09/05/[address] [address] Nitin Echevarria MD Chart Prep 09/03/2025 Orders Only GENERIC EXTERNAL DATA DEPARTMENT Provider, Generic External Data 08/30/2025 Patient Outreach [facility] P[facility] [address] [place] [address] Nitin Echevarria MD Pre-visit Planning ([facility] unable to reach) 08/24/2025 Telephone [facility] MEDICINE [address] [place] [address] Nitin Echevarria MD Referral 08/24/2025 Telephone [facility] MEDICINE [address] [place] [phone] Nitin Echevarria MD Verbal Order 08/22/2025 Orders Only [facility] External Provider, [facility] 08/18/2025 Orders Only GENERIC EXTERNAL DATA DEPARTMENT Provider, Generic External Data 08/17/2025 Refill [facility] MEDICINE [address] [place] [address] Nitin Echevarria MD 08/17/2025 Refill [facility] MEDICINE [address] [place] [address] Miryam Riley NP Hypertension, unspecified type 08/15/2025 Refill [facility] MEDICINE [address] [place] [address] Nitin Echevarria MD Heartburn 08/14/2025 Refill [facility] MED [facility] PEDS [address] [place] [address] Nitin Echevarria MD Heartburn; Vitamin D deficiency 08/09/2025 11:15 AM EDT Office Visit [facility] MEDICINE [address] [place] [address] Nitin Echevarria MD Generalized anxiety disorder with [...] Visit [facility] MEDICINE [address] [place] [address] Name, MD Nitin [address] [place] [address] Health Maintenance Due Date Last Done Comments [...] time period is included. Color Urine Yellow [facility] Appearance Urine Clear [facility] PH 6.0 5.0 - 9.0 [facility] Glucose Urine UA Negative Negative mg/dL [facility] Urine Blood Negative Negative [facility] Specific [place] - Urine 1.015 1.005 - 1.025 [facility] Urine Protein Negative Neg-Trace mg/dL [facility] Urine Ketones Negative Negative mg/dL [facility] Nitrite Urine Negative Negative [facility] Leukocyte Esterase Urine Moderate (2+)(A) Negative [facility] RBC Urine 0-2 0 - 2 /HPF [facility] Urine WBC 11-20(A) 0 - 5 /HPF [facility] Urine Squamous Epithelial Cell 0-2 0 - 2 /HPF [facility] Urine Bacteria None Seen None Seen [facility] Hyaline Casts, Urine 0-2 0 - 2 /LPF [facility] 10/03/2025 11:1 8 PM EST 10/03/2025 11:21 PM EST Narrative [facility] - 10/03/2025 11:29 PM EST [id number], Clean Catch Generic External Data Provider LAB URINE ORDERAB LES Final Result Performing Organization Address [facility] Co de Phone Number [facility] [address] [place] [phone] * Culture, Urine, Routine (10/03/2025 12:00 AM EST) Only the most recent of3 resultswithin the time period is included. Urine Urine specimen obtained by clean catch procedure / Unknown 10/03/2025 10/03/2025 Comment:UACC Narrative [facility] - 10/05/2025 11:28 AM EST Urine Culture Report Result Urine Culture 10,000 to 50,000 cfu/ml Urine Culture Mixed bacterial jann characteristic of Urine Culture urogenital contamination. Specimen Source: Urine clean catch Generic External Data Provider LAB MICROBIOLOGY - GENERAL ORDERABLES Final Result Performing Organization Address [facility] Co de Phone Number [facility] [address] [place] [phone] * (ABNORMAL) CBC auto differential (09/22/2025 7:21 AM EST) Only the most recent of3 resultswithin the time period is included. White Blood Count 6.6 4.8 - 10.8 X10*3/uL [facility] Red Blood Count 4.39 4.20 - 5.50 X10*6/uL [facility] Hemoglobin 12.2 12.0 - 16.0 g/dl [facility] Hematocrit 37.3 37.0 - 47.0 % [facility] Mean Corpuscular Volume 85.0 80.0 - 98.0 fL [facility] Mean Corpuscular Hemoglobin 27.8 27.0 - 33.0 pg [facility] Mean Corpuscular HGB Conc 32.7 31.0 - 35.0 g/dl [facility] Red Cell Distribution Width 13.8 11.0 - 16.0 % [facility] Platelet Count 295 160 - 400 X10*3/uL [facility] Mean Platelet Volume 8.1(L) 9.4 - 12.3 fL [facility] Neutrophils Percent Auto 70.6 45 - 73 % [facility] Imm Gran Pct Auto 0.5(H) 0.0 - 0.4 % [facility] Lymphocytes Percent Auto 18.3(L) 20 - 40 % [facility] Monocytes Percent Auto 9.4 2 - 11 % [facility] Eosinophils Percent Auto 0.6 0 - 4 % [facility] Basophils Percent Auto 0.6 0 - 2 % [facility] NRBC Pct Auto 0.0 0.0 - 0.2 /100WBC [facility] Neutrophils Absolute Auto 4.7 2.0 - 8.3 x10*3/uL [facility] Imm Gran Abs Auto 0.03 0.00 - 0.03 X10*3/uL [facility] Lymphocytes Absolute Auto 1.2 1.2 - 4.9 X10*3/uL [facility] Monocytes Absolute Auto 0.6 0.1 - 1.2 X10*3/uL [facility] Eosinophils Absolute Auto 0.0 0.0 - 0.4 X10*3/uL [facility] Basophils Absolute Auto 0.0 0.0 - 0.2 X10*3/uL [facility] NRBC Abs Auto 0.000 0.0 - 0.012 X10*3/uL [facility] 09/22/2025 7:21 AM EST 09/22/2025 7:23 AM EST us Generic External Data Provider LAB BLOOD ORDERAB LES Final Result [facility] [address] [place] [address] [phone] * (ABNORMAL) Basic Metabolic Panel (09/22/2025 7:21 AM EST) Only the most recent of2 resultswithin the time period is included. Sodium 137 135 - 145 mmol/L [facility] Potassium 4.7 3.3 - 5.1 mmol/L [facility] Chloride 100 96 - 108 mmol/L [facility] Carbon Dioxide 29 22 - 29 mmol/L [facility] Anion Gap 13 12 - 20 [facility] Urea Nitrogen (BUN) 18(H) 9 - 16 mg/dL [facility] Creatinine, Serum 0.85 0.5 - 1.4 mg/dL [facility] Creatinine Clr Calc Pharmacy 56.1 [facility] Comment:Provided height and weight: 162.56 cm,89.3 kg.eGFR (calculated from the MDRD study equation) and eCrCl(calculated from the Cockcroft-Gault equation) are based ondifferent parameters and may not yield comparable results.If eCrCl result is absurd, please check patient'sheight/weight. Estimated Glomerular Filt Rate >60 [facility] Comment:Chronic Kidney Disea se: Estimated GFR < 60 mL/min/1.41n0Fpwkbb Kidney Disease: Estimated GFR < 15 mL/min/1.73m2 Glucose 105 60 - 115 mg/dL [facility] Calcium 10.0 8.4 - 10.2 mg/dL [facility] 09/22/2025 7:21 AM EST 09/22/2025 7:23 AM EST us Generic External Data Provider LAB BLOOD ORDERAB LES Final Result [facility] [address] [place] [address] [phone] * CT Head w/o Contrast (09/19/2025 3:43 AM EST) Only the most recent of2 resultswithin the time period is included. Anatomical Region Laterality Modality Head, Neck Computed Tomogra phy 09/19/2025 3:43 AM EST Narrative 09/19/2025 3:45 AM EST [address] [address] [address] Scan Report Signed Patient: Noreen Wing MR#: [id number] : 1945 Acct:[id number] Age/Sex: 79 / F ADM Date: 09/18/25 Loc: HO.ED Attending Dr: Ordering Physician: Marium Ny DO Date of Service: 09/19/25 Procedure(s): CT head/brain wo IV con Accession Number(s): [id number] cc: Marium Ny DO; [facility] Report Number: [id number]: Total DLP = 747.02 mGy-cm Reason for [...] in OV> 09/19/25343 DD/ 2 TD/TT: 09/19/25342 Key Account Director: Procedure Note Donotuseinterpreter, Image - 09/19/[address] [address] [address] Scan Report Signed Patient: Noreen WingMR#: [id number] : 1945cct:[id number] Age/Sex: 79 / FADM Date: 09/18/25 Loc: HO.ED Attending Dr: Ordering Physician: Marium Ny DO Date of Service: 09/19/25 Procedure(s): CT head/brain wo IV con Accession Number(s): [id number] cc: Marium Ny DO; [facility] Report Number: [id number]: Total DLP = 747.02 mGy-cm Reason for [...] in OV> 09/19/25343 DD/ 2 TD/TT: 09/19/25342 Key Account Director: [facility] External Provider IMG CT PROCEDURES Edited Result - Final * CT Cervical Spine w/o Contrast (09/19/2025 3:42 AM EST) Only the most recent of2 resultswithin the time period is included. Anatomical Region Laterality Modality Spine, C-spine Computed Tomogra phy 09/19/2025 3:42 AM EST Narrative 09/19/2025 3:43 AM EST [address] [address] [address] Scan Report Signed Patient: Noreen Wing MR#: [id number] : 1945 Acct:[id number] Age/Sex: 79 / F ADM Date: 09/18/25 Loc: HO.ED Attending Dr: Ordering Physician: Marium Ny DO Date of Service: 09/19/25 Procedure(s): CT cervical spine wo IV con Accession Number(s): [id number] cc: Marium Ny DO; [facility] Report Number: [id number]: Total DLP = 428.77 mGy-cm Reason for Exam: fall, head trauma CLINICAL HISTORY: fall, head trauma CT cervical spine without contrast Comparison: CT/SR - CT CERVICAL SPINE WO IV CON - 09/03/25 13:35 EDT Findings: The alignment of the cervical spine is normal. There is no fracture. There is bevc-qe-psputkqq C5-6 degenerative disc disease. There are posterior osteophytes at C5-6 probably causing bwcm-dl-qcuxmsex central canal stenosis. There is multilevel facet [...] in OV> 09/19/25341 DD/ 1 TD/TT: 09/19/25341 Key Account Director: Procedure Note Donotuseinterpreter, Image - 09/19/[address] [place] [address] [address] Scan Report Signed Patient: Noreen WingMR#: [id number] : 1945cct:[id number] Age/Sex: 79 / FADM Date: 09/18/25 Loc: HO.ED Attending Dr: Ordering Physician: Marium Ny DO Date of Service: 09/19/25 Procedure(s): CT cervical spine wo IV con Accession Number(s): [id number] cc: Marium Ny DO; [facility] Report Number: [id number]: Total DLP = 428.77 mGy-cm Reason for Exam: fall, head trauma CLINICAL HISTORY: fall, head trauma CT cervical spine without contrast Comparison: CT/SR - CT CERVICAL SPINE WO IV CON - 09/03/25 13:35 EDT Findings: The alignment of the cervical spine is normal. There is no fracture. There is jdcm-wr-ywnpyezc C5-6 degenerative disc disease. There are posterior osteophytes at C5-6 probably causing szru-ca-kglzabva central canal stenosis. There is multilevel facet [...] in OV> 09/19/25341 DD/ 1 TD/TT: 09/19/25341 Key Account Director: [facility] External Provider IMG CT PROCEDURES Edited Result - Final * High Sensitivity Troponin I (09/19/2025 12:26 AM EST) Only the most recent of2 resultswithin the time period is included. TROPONIN I HIGH SENSITIVITY <2.7 <3.5 - 17.0 ng/L [facility] Comment:The Mckeon high sens itivity Troponin-I results should beused in conjunction with other diagnostic information suchas ECG, clinical observations and information, and patientsymptoms to aid in the diagnosis of GA. 09/19/2025 12:2 6 AM EST 09/19/2025 12:28 AM EST Generic External Data Provider LAB BLOOD ORDERAB LES Final Result [facility] [address] [place] [address] [phone] * Prothrombin Time-INR (09/19/2025 12:26 AM EST) Prothrombin Time 12.5 11.2 - 13.5 SEC [facility] INTERNATIONAL NORM RATIO 1.0 0.9 - 1.1 [facility] Comment:INTERNATIONAL NORMAL IZED RATIO (INR) [...] BLOOD ORDERAB LES Final Result [facility] [address] [place] [phone] * (ABNORMAL) Comprehensive Metabolic Panel (09/19/2025 12:26 AM EST) Only the most recent of2 resultswithin the time period is included. Sodium 136 135 - 145 mmol/L [facility] Potassium 4.1 3.3 - 5.1 mmol/L [facility] Chloride 101 96 - 108 mmol/L [facility] Carbon Dioxide 25 22 - 29 mmol/L [facility] Anion Gap 14 12 - 20 [facility] Urea Nitrogen (BUN) 33(H) 9 - 16 mg/dL [facility] Creatinine, Serum 0.99 0.5 - 1.4 mg/dL [facility] Creatinine Clr Calc Pharmacy 45.4 [facility] Comment:Provided height and weight: 157.48 cm,86.183 kg.eGFR (calculated from the MDRD study equation) and eCrCl(calculated from the Cockcroft-Gault equation) are based ondifferent parameters and may not yield comparable results.If eCrCl result is absurd, please check patient'sheight/weight. Estimated Glomerular Filt Rate 54 [facility] Comment:Chronic Kidney Disea se: Estimated GFR < 60 mL/min/1.97o9Lnhuwc Kidney Disease: Estimated GFR < 15 mL/min/1.73m2 Glucose 108 60 - 115 mg/dL [facility] Calcium 8.9 8.4 - 10.2 mg/dL [facility] Bilirubin, Total 0.3 0.0 - 1.0 mg/dL [facility] Aspartate Amino Transferase 26 5 - 31 U/L [facility] Alanine Aminotransferase 14 0 - 31 U/L [facility] Total Protein 7.6 6.5 - 8.0 g/dL [facility] Albumin Level 4.1 3.5 - 5.0 g/dL [facility] Alkaline Phosphatase 92 39 - 117 U/L [facility] 09/19/2025 12:2 6 AM EST 09/19/2025 12:28 AM EST us Generic External Data Provider LAB BLOOD ORDERAB LES Final Result Performing Organization Address City/State/[facility] de Phone Number [facility] [address] [place] [phone] * XR Knee 4+ Views Left (09/18/2025 3:36 PM EST) Only the most recent of2 resultswithin the time period is included. Anatomical Region Laterality Modality Lower Extremities, Knee Left Radiogra phic Imaging 09/18/2025 3:36 PM EST Narrative 09/18/2025 3:39 PM EST [address] [address] XRay Report Signed Patient: Noreen Wing MR#: [id number] : 1945 Acct:[id number] Age/Sex: 79 / F ADM Date: 09/18/25 Loc: HO.ED Attending Dr: Ordering Physician: Cuco Amador Date of Service: 09/18/25 Procedure(s): XR knee LT 4V Accession Number(s): [id number] cc: Cuco Amador; Name,Nitin PIKE Reason for [...] in OV> 09/18/258 DD/ 35 TD/TT: 09/18/251535 Key Account Director: Procedure Note Donotuseinterpreter, Image - 09/18/[address] [address] XRay Report Signed Patient: Noreen WingMR#: [id number] : 3Acct:[id number] Age/Sex: 79 / FADM Date: 09/18/25 Loc: .ED Attending Dr: Ordering Physician: Cuco Amador Date of Service: 09/18/25 Procedure(s): XR knee LT 4V Accession Number(s): [id number] cc: Cuco Amador; Name,Nitin PIKE Reason for [...] in OV> 09/18/258 DD/ 35 TD/TT: 09/18/251535 Key Account Director: [facility] External Provider IMG XR PROCEDURES Edited Result - Final * Glucose, Whole Blood (09/17/2025 7:24 AM EST) Glucose, Whole Blood 98 60 - 115 mg/dL [facility] Comment:METER #: [id number] 09/17/2025 7:24 AM EST 09/17/2025 7:28 AM EST Generic External Data Provider LAB BLOOD ORDERAB LES Final Result Performing Organization Address [facility]/ZIP Co de Phone Number [facility] [address] [place] [phone] * POCT Urinalysis (09/06/2025 1:32 PM [...] Random) 09/06/2025 1:32 PM EDT Thea Warren CRICKET COACH POINT OF CARE TEST ENTER/EDIT ORDERABLES Final Result * Magnesium (09/03/2025 2:08 PM EDT) Magnesium 2.0 1.6 - 2.6 mg/dL [facility] 09/03/2025 2:08 PM EDT 09/03/2025 2:12 PM EDT us Generic External Data Provider LAB BLOOD ORDERAB LES Final Result Performing Organization Address [facility]/ZIP Co de Phone Number [facility] [address] [place] [phone] * POCT HGB A1C (01/10/2025 11:02 AM EST) Hemoglobin A1C 5.1 4.0 - 6.0 % QC Media Lot # [id number] Lot# Expiration Date ,[id number] Blood 01/10/2025 11:0 2 AM EST Nitin [...] LDL-C. Jack RAYO et al. JITENDRA. 2013;310(19): 3007-8766 (http://education.Sweet Tooth.Freedcamp/faq/ECG508) Non-HDL Cholesterol 88 <130 mg/dL (calc) CONVERTED [...] Most Recently Relevant to Health Maintenance Insurance [employer] (HMO D-SNP) [place] [id number] Care Teams Edi Programmer Analyst Relationship Specialty Start Date End Date Name, MD Nitin [address] [place] [address] PCP - General Family Medicine 08/26/17 [facility] 09/01/24
--- OUTSIDE RECORDS SUMMARY | 2025-11-06 21:06 | XMS_ITS | Encounter Summary ---
Author Organization [employer] Address [address] [facility] [address] [place] [address] Care Team Providers Care Compliance Testing Analyst Name Role Phone Name, Nitin PIKE Primary Care Provider [phone] Reason for Visit * Reason Onset Date Comments Order(s) 12/09/2023 Encounter Details Date Type Department Care Team ([facility] Contact Info) Description 12/09/2023 Telephone [facility] MEDICINE [address] [place], [place] [phone] Name, MD Nitin [address] [place], [place] [phone] Order(s) Social History Tobacco Use Types Packs/Day [...] orders. If any questions please contact Noreen [phone]. documented in this encounter Plan of Treatment Upcoming Encounters Date Type Department Care Team (Late st Contact Info) Description 11/07/2025 10:00 AM EST Office Visit [facility] MEDICINE [address] [place] [phone] Name, MD Nitin [address] [place] [address] documented as of this encounter Visit Diagnoses Not on filedocumented in this encounter Additional Health Concerns Assessment Noted Time PHQ-9 Depression Total Score: 12 023 9:37 AM EDT documented as of this encounter Care Teams Compliance Testing Analyst Relationship Specialty Start Date End Date Name, MD Nitin [address] [place] [phone] PCP - General Family Medicine 08/26/17 [facility] 09/01/24 documented as of this encounter
--- OUTSIDE RECORDS SUMMARY | 2025-11-06 21:06 | XMS_ITS | Encounter Summary ---
Author Organization [employer] Address [address] [facility] [address] [place] [address] Care Team Providers Care Coach Cleaner Name Role Phone Name, Nitin PIKE Primary Care Provider [phone] Reason for Visit * Reason Onset Date Comments Verbal Orders 12/15/2023 Encounter Details Date Type Department Care Team ([facility] st Contact Info) Description 12/15/2023 Telephone [facility] MEDICINE [address] [place], [place] [phone] Name, MD Nitin [address] [place] [address] Verbal Orders Social History Tobacco Use Types [...] 12:03 PM EST Tc from [employer] with [email or web address] requesting verbal order to see pt 2 times a week for 4 weeks for Occupational Therapy, please contact [employer] at [phone] documented in this encounter Plan of Treatment Upcoming Encounters Date Type Department Care Team (Late st Contact Info) Description 11/07/2025 10:00 AM EST Office Visit [facility] MED[facility] [address] [place] [address] Name, MD Nitin [address] [place] [address] documented as of this encounter Visit Diagnoses Not on filedocumented in this encounter Additional Health Concerns Assessment Noted Time PHQ-9 Depression Total Score: 12 023 9:37 AM EDT documented as of this encounter Care Teams Coach Cleaner Relationship Specialty Start Date End Date Name, MD Nitin [address] [place] [address] PCP - General Family Medicine 08/26/17 [facility] 09/01/24 documented as of this encounter
--- OUTSIDE RECORDS SUMMARY | 2025-11-06 21:06 | XMS_ITS | Encounter Summary ---
Author Organization [employer] Address [address] [facility] [address] [place] [address] Care Team Providers Care Sales Agent Food Vending Service Name Role Phone Name, Nitin PIKE Primary Care Provider [phone] Reason for Visit * Reason Comments Med Refill Encounter Details Date Type Department Care Team (Late Contact Info) Description 03/02/2023 Refill [facility] MEDICINE [address] [place] [phone] Karely Patiño MD [address] [place] [address] [phone] Social History Tobacco Use Types Packs/Day Years [...] [facility] MEDICINE [address] [place] [phone] Name, MD Nitin [address] [place] [phone] documented as of this encounter Visit Diagnoses Not on filedocumented in this encounter Care Teams Sales Agent Food Vending Service Relationship Specialty Start Date End Date Name, MD Nitin [address] [place] [address] PCP - General Family Medicine 08/26/17 [facility] 09/01/24 documented as of this encounter
--- OUTSIDE RECORDS SUMMARY | 2025-11-06 21:06 | XMS_ITS | Encounter Summary ---
Author Organization [employer] Address [address] [facility] [address] [place] [address] Care Team Providers Care Excelsior Machine Tender Name Role Phone Name, Nitin PIKE Primary Care Provider [phone] Reason for Visit * Reason Onset Date Comments Durable Medical Equipment 12/09/2023 Encounter Details Date Type Department Care Team ([facility] st Contact Info) Description 12/09/2023 Telephone [facility] MEDICINE [address] [place], [place] [phone] Name, MD Nitin [address] [place], [place] [phone] Durable Medical Equipment Social History Tobacco Use [...] EST DME rx faxed to [facility] as requested. RN will consult with S nurse and provide referral. * Telephone Encounter - Fozia Jacob RN - 12/09/2023 4:58 PM EST Call returned [place] [facility] [place] [facility] [phone]. [facility] [facility] attempted to provide PT at home but pt refused. [facility] pt is requesting outpatient PT. [facility] pt is seeing a counselor more regularly and has agreed to VNA referral. Reports pt has had 3 falls in the past [address] [facility] [facility] no longer has visiting nurses. [facility] [place] [employer] or [facility] for VNA referral. [facility] also requesting DME rx for rollator walker and a straight cane. Requests that DME rx be faxed to [phone]. Advised requests will be sent to pcp. * Telephone Encounter - Adithya Solorzano - 12/09/2023 4:25 PM EST Tc from [facility] requesting DME: Rollator walker . documented in this encounter Plan of Treatment Upcoming Encounters Date Type Department Care Team (Late st Contact Info) Description 11/07/2025 10:00 AM EST Office Visit [facility] MEDICINE [address] [place] [address] Name, MD Nitin [address] [place] [address] documented as of this encounter Visit Diagnoses Not on filedocumented in this encounter Additional Health Concerns Assessment Noted Time PHQ-9 Depression Total Score: 12 023 9:37 AM EDT documented as of this encounter Care Teams Excelsior Machine Tender Relationship Specialty Start Date End Date Name, MD Nitin [facility] [place] [address] PCP - General Family Medicine 08/26/17 [facility] 09/01/24 documented as of this encounter
--- OUTSIDE RECORDS SUMMARY | 2025-11-06 21:06 | XMS_ITS | Encounter Summary ---
Author Organization [employer] Address 75 [facility] [address] [place] [address] Care Team Providers Care Cylinder Batcher Name Role Phone Name, Nitin PIKE Primary Care Provider [phone] Reason for Visit * Reason Onset Date Comments triage 12/18/2022 Encounter Details Date Type Department Care Team ([facility] st Contact Info) Description 12/18/2022 Telephone [facility] MEDICINE [address] [place], [place] [phone] Name, MD Nitin [address] [place] [address] triage Social History Tobacco Use Types Packs/Day [...] 12/18/2022 2:35 PM EST Called pt. Via [employer] legal clerk [phone] Eduardo. Pt. States that she has a [...] phone. Please reach out to pt. With Nigerien speaking another time to see what her [...] EST Office Visit [facility] MEDICINE [address] [place] [address] Name, MD Nitin [address] [place] [address] documented as of this encounter Visit Diagnoses Not on filedocumented in this encounter Care Teams Cylinder Batcher Relationship Specialty Start Date End Date Name, MD Nitin [address] [place] [address] PCP - General Family Medicine 08/26/17 [facility] 09/01/24 documented as of this encounter
--- OUTSIDE RECORDS SUMMARY | 2025-11-06 21:06 | XMS_ITS | Encounter Summary ---
Author Organization [employer] Address 75 [facility] [address] [place] [address] Care Team Providers Care Flame Channeler Name Role Phone Name, Nitin PIKE Primary Care Provider [phone] Reason for Visit * Reason Onset Date Comments Verbal Orders 01/02/2024 Encounter Details Date Type Department Care Team ([facility] st Contact Info) Description 01/02/2024 Telephone [facility] MEDICINE [address] [place], [place] [phone] Name, MD Nitin [address] [place] [address] Verbal Orders Social History Tobacco Use Types [...] No answer. LVM to call back on [phone]. * Telephone Encounter - Melany Santos RN - 01/06/2024 10:25 AM EST Please review and advise for below request. * Telephone Encounter - Deana Bazzi - 01/02/2024 3:44 PM EST Tc from [facility] with S requesting verbal orders for discharge pt from Occupational Therapy, due to pt refuses services, please contact [facility] at [phone]. documented in this encounter Plan of Treatment Upcoming Encounters Date Type Department Care Team (Late st Contact Info) Description 11/07/2025 10:00 AM EST Office Visit [facility] MEDICINE [address] [place] [address] Name, MD Nitin [address] [place] [address] documented as of this encounter Visit Diagnoses Not on filedocumented in this encounter Additional Health Concerns Assessment Noted Time PHQ-9 Depression Total Score: 12 023 9:37 AM EDT documented as of this encounter Care Teams Flame Channeler Relationship Specialty Start Date End Date Name, MD Nitin [address] [place] [address] PCP - General Family Medicine 08/26/17 [facility] 09/01/24 documented as of this encounter
--- OUTSIDE RECORDS SUMMARY | 2025-11-06 21:06 | XMS_ITS | Encounter Summary ---
Author Organization [employer] Address [address] [facility] [address] [place] [address] Care Team Providers Care Trailer Body Assembler Name Role Phone Name, Nitin PIKE Primary Care Provider [phone] Reason for Visit * Reason Onset Date Comments FYI 01/21/2024 ER Follow-up 01/21/2024 Encounter Details Date Type Department Care Team ([facility] st Contact Info) Description 01/21/2024 Telephone [facility] MEDICINE [address] [place], [place] [phone] Name, MD Nitin [address] [place] [address] FYI; ER Follow-up Social History Tobacco Use [...] - 01/21/2024 1:54 PM EDT Message from [facility] ED noted. [facility] note sent to medical records. PCP does not rx Trazodone. Pt to f/u with psych prescriber. Pt is scheduled for f/u with pcp 02/13/24. * Telephone Encounter - Janette Huitron - 01/21/2024 9:45 AM EDT Tc from [facility] with [facility] ED calling in regards to pt. States pt was seen today for anxiety and is requesting trazodone. Will discharge pt with no medication change. Would also like to advise provider, pt was seen at [facility] on 01/17 for anxiety/insomnia as well documented in this encounter Plan of Treatment Upcoming Encounters Date Type Department Care Team (Late st Contact Info) Description 11/07/2025 10:00 AM EST Office Visit [facility] MEDICINE [address] [place] [address] Name, MD Nitin [address] [place] [address] documented as of this encounter Visit Diagnoses Not on filedocumented in this encounter Additional Health Concerns Assessment Noted Time PHQ-9 Depression Total Score: 12 023 9:37 AM EDT documented as of this encounter Care Teams Trailer Body Assembler Relationship Specialty Start Date End Date Name, MD Nitin [address] [place] [address] PCP - General Family Medicine 08/26/17 [facility] 09/01/24 documented as of this encounter
--- OUTSIDE RECORDS SUMMARY | 2025-11-06 21:06 | XMS_ITS | Encounter Summary ---
Author Organization [employer] Address 75 [facility] [address] [place] [address] Care Team Providers Care Investor Relations Associate Name Role Phone Name, Nitin PIKE Primary Care Provider [phone] Encounter Details Date Type Department Care Team ([facility] Contact Info) Description 01/06/2023 Orders Only [facility] MED & PEDS [address] [place], [place] [phone] Lisha Kelly LPN Social History Tobacco Use [...] [facility] [address] [place], [place] [phone] NameNitin MD [address] [place] [address] documented as of this encounter Visit Diagnoses Not on filedocumented in this encounter Care Teams Investor Relations Associate Relationship Specialty Start Date End Date NameNitin MD [address] [place] [address] PCP - General Family Medicine 08/26/17 [facility] 09/01/24 documented as of this encounter
--- OUTSIDE RECORDS SUMMARY | 2025-11-06 21:06 | XMS_ITS | Encounter Summary ---
Author Organization [employer] Address [address] [facility] [address] [place] [address] Care Team Providers Care Joinery Patternmaker Name Role Phone Name, Nitin PIKE Primary Care Provider Encounter Details Date Type Department Care Team ([facility] Contact Info) Description 08/08/2023 Telephone [facility] MEDICINE [address] [place] [phone] Name, MD Nitin [address] [place] [address] [phone] Social History Tobacco Use Types Packs/Day Years [...] EST Office Visit [facility] MEDICINE [address] [place] [address] [phone] Name, MD Nitin [address] [place] [address] [phone] documented as of this encounter Visit Diagnoses Not on filedocumented in this encounter Additional Health Concerns Assessment Noted Time PHQ-9 Depression Total Score: 12 023 9:37 AM EDT documented as of this encounter Care Teams Joinery Patternmaker Relationship Specialty Start Date End Date Name, MD Nitin [address] [place] [address] PCP - General Family Medicine 08/26/17 [facility] 09/01/24 documented as of this encounter
--- OUTSIDE RECORDS SUMMARY | 2025-11-06 21:06 | XMS_ITS | Encounter Summary ---
Author Organization [employer] Address 75 [facility] [address] [place] [address] Care Team Providers Care Site Project Manager Name Role Phone Name, Nitin PIKE Primary Care Provider [phone] Reason for Visit * Reason Onset Date Comments Call Back Request 03/14/2025 Encounter Details Date Type Department Care Team ([facility] st Contact Info) Description 03/14/2025 Telephone [facility] MEDICINE [address] [place], [place] [phone] Name, MD Nitin [address] [place] [address] Call Back Request Social History Tobacco Use [...] EST Office Visit [facility] MEDICINE [address] [place] [address] Name, MD Nitin [address] [place] [address] documented as of this encounter Visit Diagnoses Not on filedocumented in this encounter Additional Health Concerns Assessment Noted Time PHQ-9 Depression Total Score: 6 02/13/20 9:14 AM EDT documented as of this encounter Care Teams Site Project Manager Relationship Specialty Start Date End Date Name, MD Nitin [address] [place] [address] PCP - General Family Medicine 08/26/17 [facility] 09/01/24 documented as of this encounter
--- OUTSIDE RECORDS SUMMARY | 2025-11-06 21:06 | XMS_ITS | Encounter Summary ---
Author Organization [employer] Address 75 [facility] [address] [place] [address] Care Team Providers Care Ticket Marker Name Role Phone Name, Nitin PIKE Primary Care Provider [phone] Reason for Visit * Reason Comments Med Refill Encounter Details Date Type Department Care Team (Late st Contact Info) Description 01/09/2025 Refill [facility] [address] [place], [place] [phone] Name, MD Nitin [address] [place] [address] Hypertension, unspecified type Social History Tobacco Use [...] Office Visit [facility] MEDICINE [address] [place] [address] NameNitin MD [address] [place] [address] documented as of this encounter Visit Diagnoses Diagnosis Hypertension, unspecified type documented in this encounter Additional Health Concerns Assessment Noted Time PHQ-9 Depression Total Score: 6 02/13/20 9:14 AM EDT documented as of this encounter Care Teams Ticket Marker Relationship Specialty Start Date End Date NameNitin MD [address] [place] [address] PCP - General Family Medicine 08/26/17 [facility] 09/01/24 documented as of this encounter
--- NOTE | 2025-11-06 21:32 | ED.ANXIETY ---
HPI - Anxiety General Chief Complaint: Anxiety Stated Complaint: Anxiety, was seen this morning, wants anxiety meds Time Seen by Provider: 11/06/25 21:02 Source: patient and EMS Mode of arrival: EMS Limitations: no limitations History of Present Illness ED Provider: Dr. Marta Briscoe HPI narrative: Patient comes to the emergency room via ambulance complaining of anxiety. This is the 3rd time today that patient comes in with the anxiety. Seems that earlier today she was seen twice, no medications were given. Additionally, this visit, patient complaining of mild vertigo. Patient denies SI or HI, denies any recent falls. Related Data Home Medications ?Medication ?Instructions ?Recorded ?Confirmed omeprazole 20 mg tablet,delayed 20 mg PO DAILY@0630 08/09/20 08/22/25 release aspirin 81 mg tablet,delayed 81 mg PO QAM 01/28/24 08/22/25 release bisacodyl 5 mg tablet,delayed 5 mg PO DAILY PRN constipation 01/28/24 08/22/25 release ferrous sulfate 325 mg (65 mg 325 mg PO DAILY 01/28/24 08/22/25 iron) tablet (FeroSul) melatonin 10 mg tablet,extended 10 mg PO BEDTIME PRN Insomnia 01/28/24 08/22/25 release multivitamin 1 tab PO QAM 01/28/24 08/22/25 rosuvastatin 20 mg tablet 20 mg PO BEDTIME 01/28/24 08/22/25 trazodone 50 mg tablet 50 mg PO BEDTIME 01/28/24 08/22/25 amlodipine 10 mg tablet 10 mg PO DAILY 02/09/24 08/22/25 acetaminophen 500 mg tablet 500 mg PO Q8H PRN pain 08/09/24 08/22/25 cholecalciferol (vitamin D3) 25 25 mcg PO DAILY 08/20/24 08/22/25 mcg (1,000 unit) tablet sertraline 100 mg tablet 100 mg PO DAILY 03/16/25 08/22/25 apixaban 5 mg tablet 5 mg PO BID 08/22/25 08/22/25 clonazepam 0.5 mg tablet 0.5 mg PO TID 08/22/25 08/22/25 fluticasone propionate 50 2 spray intranasal DAILY PRN 08/22/25 08/22/25 mcg/actuation nasal Allergic Symptoms spray,suspension (Flonase Allergy Relief) hydroxyzine HCl 25 mg tablet 10 mg PO DAILY PRN anxiety 08/22/25 08/22/25 ketotifen fumarate 0.025 % (0.035 1 drp ophthalmic (eye) BID PRN 08/22/25 08/22/25 %) eye drops allergies mirtazapine 45 mg tablet 45 mg PO BEDTIME 08/22/25 08/22/25 valsartan 160 mg tablet 160 mg PO QPM 08/22/25 08/22/25 Previous Rx's ?Medication ?Instructions ?Recorded metoprolol succinate 50 mg 50 mg PO DAILY #90 tabs 09/28/20 tablet,extended release 24 hr docusate sodium 100 mg capsule 200 mg (2 x 100 mg) PO BID #20 caps 02/24/25 (Colace) ibuprofen 200 mg tablet 200 mg PO Q6H PRN pain #20 tabs 07/24/25 meclizine 12.5 mg tablet 12.5 mg PO TID PRN dizziness or 07/26/25 vertigo #30 tabs meclizine 25 mg tablet 25 mg PO BID PRN dizziness #14 tabs 09/22/25 meclizine 25 mg tablet 25 mg PO BID PRN dizziness #14 tabs 10/10/25 meclizine 25 mg tablet 25 mg PO BID PRN dizziness #14 tabs 11/01/25 Allergies Allergy/AdvReac Type Severity Reaction Status Date / Time penicillin G (Penicillin G) Allergy Severe ITCHY/RASH Verified 11/06/25 20:56 Sulfa (Sulfonamide Allergy Severe ITCHY,RASH, Verified 11/06/25 20:56 Antibiotics) (Sulfa rash (Sulfonamides)) trimethoprim (From Bactrim) Allergy Severe HIVES Verified 11/06/25 20:56 Penicillins Allergy Intermediate Hives Verified 11/06/25 20:56 sulfamethoxazole (From Allergy Mild Hives Verified 11/06/25 20:56 Bactrim) Review of Systems Review of Systems: Constitutional : No Weight loss, No Fever, No Chills, No Night Sweats, No Fatigue, No Malaise ENT/Mouth : No Hearing loss, No Ear Pain, No Nasal Congestion, No Sinus Pain, No Hoarseness, No sore throat, No Rhinorrhea, No Swallowing Difficulty Eyes: No Eye Pain, No Swelling, No Redness, No Foreign Body, No Discharge, No Vision Changes Cardiovascular : No Chest Pain, No SOB, No Dyspnea on Exertion, No Orthopnea, No Edema, No Palpitations Respiratory : No Cough, No Sputum, No Wheezing, No Smoke Exposure, No Dyspnea Gastrointestinal : No Nausea, No Vomiting, No Diarrhea, No Constipation, No abdominal Pain, No Hematochezia, No Melena Genitourinary : no irregular bleeding, No Dysuria, No Urinary Frequency, No Hematuria, No Urinary Incontinence, No Urgency, No Flank Pain, No Urinary Flow Changes, No Hesitancy Musculoskeletal : No joint pain, No Myalgias, No Joint Swelling Skin : No Skin Lesions, No rash Neuro : No Weakness, No Numbness, No Paresthesias, No Loss of Consciousness, No Dizziness, No Headache, complaining of vertigo Psych : Complaining of anxiety No Depression, No SI/HI/AH/VH, No Social Issues, Heme/Lymph: No Bruising, No Bleeding,No Lymphadenopathy Endocrine : No Polyuria, No Polydipsia, No Temperature Intolerance [facility] Past Medical History 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 or 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 (quiller operator) Alcohol intake: never Patient Tobacco Use Status: Never used Tobacco Advance Directives: Yes Advance Directives on File: Yes Advance Directives Date on File: 01/28/24 service: No Physical Exam Exam: Exam: Appearance: Alert. Oriented X3. No acute distress. Eyes: Pupils equal, round and reactive to light. No nystagmus ENT: Pharynx normal. Neck: Normal inspection. Neck supple. No lymph nodes noted. No crepitus CVS: Normal heart rate and rhythm. Pulses normal. Normal S1 and S2 Respiratory: No respiratory distress. Breath sounds normal. No Wheezing. No rales Abdomen: Soft and nontender. No rigidity. No distention. Skin: Skin warm and dry. Normal skin color. Normal skin turgor. Extremities: No lower extremity edema. No Lacerations. No Rash Neuro: Oriented X 3. No motor deficit. No sensory deficit. Moving all extremities. No slurred speech. CN 2 through 12 grossly intact Psych: calm, cooperative, a bit anxious Vital Signs: Vital Signs: Last Vital Signs Temp 98.2 F 11/06/25 20:55 Pulse 90 11/06/25 20:55 Resp 20 11/06/25 20:55 BP 147/81 H 11/06/25 20:55 Pulse Ox 95 11/06/25 20:55 O2 Del Method Room Air 11/06/25 20:55 BMI result Body Mass Index 25.7 Medical Decision Making Medical Decision Making MDM Narrative: He was given p.o. hydroxyzine and meclizine. Patient states that she feels better This is patient's 9th visit this month for the same complaint. Patient states that tomorrow she can fill her prescriptions for anxiety including benzodiazepines. I discussed with the patient, that it would be inappropriate care to give her 1 time benzodiazepines at this time. Patient states that she understands Differential Diagnosis Differential Diagnoses: The differential diagnosis associated with the presentation includes Discharge Plan Discharge Clinical Impression: Anxiety, Vertigo Patient Disposition: Home, Self-Care Instructions: Anxiety (ED), Vertigo (ED) Additional Instructions: Please follow-up with your primary care physician tomorrow. If you have any worsening or new symptoms, please return to the emergency room or call 911 Prescriptions: No Action metoprolol succinate 50 mg tablet extended release 24 hr 50 mg PO DAILY Qty: 90 2RF omeprazole 20 mg Tablet,Delayed Release (Dr/Ec) 20 mg PO DAILY@0630 meclizine 12.5 mg tablet 12.5 mg PO TID PRN (Reason: dizziness or vertigo) Qty: 30 0RF meclizine 25 mg tablet 25 mg PO BID PRN (Reason: dizziness) Qty: 14 0RF meclizine 25 mg tablet 25 mg PO BID PRN (Reason: dizziness) Qty: 14 0RF trazodone 50 mg tablet 50 mg PO BEDTIME ferrous sulfate [FeroSul] 325 mg (65 mg iron) tablet 325 mg PO DAILY bisacodyl 5 mg tablet,delayed release (DR/EC) 5 mg PO DAILY PRN (Reason: constipation) rosuvastatin 20 mg tablet 20 mg PO BEDTIME aspirin 81 mg tablet,delayed release (DR/EC) 81 mg PO QAM multivitamin Tablet 1 tab PO QAM melatonin 10 mg tablet extended release 10 mg PO BEDTIME PRN (Reason: Insomnia) cholecalciferol (vitamin D3) 25 mcg (1,000 unit) tablet 25 mcg PO DAILY acetaminophen 500 mg tablet 500 mg PO Q8H PRN (Reason: pain) docusate sodium [Colace] 100 mg capsule 200 mg PO BID Qty: 20 0RF ibuprofen 200 mg tablet 200 mg PO Q6H PRN (Reason: pain) Qty: 20 0RF ketotifen fumarate 0.025 % (0.035 %) drops 1 drp ophthalmic (eye) BID PRN (Reason: allergies) mirtazapine 45 mg tablet 45 mg PO BEDTIME clonazepam 0.5 mg tablet 0.5 mg PO TID hydroxyzine HCl 25 mg tablet 10 mg PO DAILY PRN (Reason: anxiety) fluticasone propionate [Flonase Allergy Relief] 50 mcg/actuation spray,suspension 2 spray intranasal DAILY PRN (Reason: Allergic Symptoms) Rx Instructions: administer into each nostril apixaban 5 mg tablet 5 mg PO BID valsartan 160 mg tablet 160 mg PO QPM meclizine 25 mg tablet 25 mg PO BID PRN (Reason: dizziness) Qty: 14 0RF sertraline 100 mg tablet 100 mg PO DAILY amlodipine 10 mg tablet 10 mg PO DAILY Print Language: Croatian
[2025-11-06 21:43] VITALS: BP 147/81; PULSE 90; RESP 20; TEMP 36.8; O2SAT 95
== END 2025-11-06 21:44 | disposition home or self-care (01) ==
PROVIDERS: Emergency Provider Emergency Medicine; PCP Internal Medicine Geriatric Medicine
DX: F41.9 Anxiety disorder, unspecified (principal); R42 Dizziness and giddiness; I10 Essential (primary) hypertension; Z79.899 Other long term (current) drug therapy
CPT/HCPCS: 99283

== ENCOUNTER 2025-11-06 23:56 | Emergency (ER) | payer OTHER, SELFPAY ==
--- NOTE | ~2025-11-06 | XR_ITS ---
CLINICAL HISTORY: fall, pain 2 view left knee Comparison: Left knee radiograph 09/18/2025 Findings: No acute or displaced fracture. No subluxation. No significant joint effusion. No intra-articular loose bodies. Moderate tricompartmental osteoarthritis. Vascular calcifications. Impression: 1. No fracture or subluxation. 2. Additional findings as above. This document has been electronically signed by: Jayda Gottlieb MD on 11/07/2025 01:11:10
--- NOTE | ~2025-11-06 | XR_ITS ---
CLINICAL HISTORY: fall, pain 3 view, pelvis and left hip Comparison: CT abdomen and pelvis 07/28/2025 Findings: No acute or displaced fracture. No subluxation. Severe bilateral hip osteoarthritis. Moderate arthritic changes noted throughout lower lumbar spine, bilateral SI joints and symphysis pubis. No acute soft tissue abnormality. Impression: 1. No acute fracture or subluxation. 2. Additional findings as above. This document has been electronically signed by: Jayda Gottlieb MD on 11/07/2025 01:12:10
[2025-11-07 00:02] VITALS: BP 138/64; BP 150/85; PULSE 98; RESP 20; TEMP 37.4; O2SAT 95; BMI 28.3
--- NOTE | 2025-11-07 00:18 | ED.GENADULT ---
HPI - General Adult General Chief complaint: General Medical Stated complaint: anxiety Time Seen by Provider: 11/07/25 00:15 Source: patient and EMS Mode of arrival: EMS Limitations: no limitations History of Present Illness ED Provider: Dr. Marta Briscoe HPI narrative: This is the 4th time that the patient comes in 24 hours. However, this time patient states that she has no anxiety. Patient states that after I discharged her a few minutes ago, she got home and when she was walking up the stairs, she slipped on ice down the stairs and landed on the left side of her hip. Patient is adamant that she did not hit her head or lost consciousness. Denies headache or neck pain. Patient states that she does not feel anxious. Earlier today, patient reported vertigo. Patient states that after we gave her meclizine here, she was completely normal. Patient states it was purely mechanical, slipped on ice. Patient states that she has left hip pain and left knee pain. Patient states that somebody saw her fall and they called 911 for her. Related Data Home Medications ?Medication ?Instructions ?Recorded ?Confirmed omeprazole 20 mg tablet,delayed 20 mg PO DAILY@0630 08/09/20 08/22/25 release aspirin 81 mg tablet,delayed 81 mg PO QAM 01/28/24 08/22/25 release bisacodyl 5 mg tablet,delayed 5 mg PO DAILY PRN constipation 01/28/24 08/22/25 release ferrous sulfate 325 mg (65 mg 325 mg PO DAILY 01/28/24 08/22/25 iron) tablet (FeroSul) melatonin 10 mg tablet,extended 10 mg PO BEDTIME PRN Insomnia 01/28/24 08/22/25 release multivitamin 1 tab PO QAM 01/28/24 08/22/25 rosuvastatin 20 mg tablet 20 mg PO BEDTIME 01/28/24 08/22/25 trazodone 50 mg tablet 50 mg PO BEDTIME 01/28/24 08/22/25 amlodipine 10 mg tablet 10 mg PO DAILY 02/09/24 08/22/25 acetaminophen 500 mg tablet 500 mg PO Q8H PRN pain 08/09/24 08/22/25 cholecalciferol (vitamin D3) 25 25 mcg PO DAILY 08/20/24 08/22/25 mcg (1,000 unit) tablet sertraline 100 mg tablet 100 mg PO DAILY 03/16/25 08/22/25 apixaban 5 mg tablet 5 mg PO BID 08/22/25 08/22/25 clonazepam 0.5 mg tablet 0.5 mg PO TID 08/22/25 08/22/25 fluticasone propionate 50 2 spray intranasal DAILY PRN 08/22/25 08/22/25 mcg/actuation nasal Allergic Symptoms spray,suspension (Flonase Allergy Relief) hydroxyzine HCl 25 mg tablet 10 mg PO DAILY PRN anxiety 08/22/25 08/22/25 ketotifen fumarate 0.025 % (0.035 1 drp ophthalmic (eye) BID PRN 08/22/25 08/22/25 %) eye drops allergies mirtazapine 45 mg tablet 45 mg PO BEDTIME 08/22/25 08/22/25 valsartan 160 mg tablet 160 mg PO QPM 08/22/25 08/22/25 Previous Rx's ?Medication ?Instructions ?Recorded metoprolol succinate 50 mg 50 mg PO DAILY #90 tabs 09/28/20 tablet,extended release 24 hr docusate sodium 100 mg capsule 200 mg (2 x 100 mg) PO BID #20 caps 02/24/25 (Colace) ibuprofen 200 mg tablet 200 mg PO Q6H PRN pain #20 tabs 07/24/25 meclizine 12.5 mg tablet 12.5 mg PO TID PRN dizziness or 07/26/25 vertigo #30 tabs meclizine 25 mg tablet 25 mg PO BID PRN dizziness #14 tabs 09/22/25 meclizine 25 mg tablet 25 mg PO BID PRN dizziness #14 tabs 10/10/25 meclizine 25 mg tablet 25 mg PO BID PRN dizziness #14 tabs 11/01/25 Allergies Allergy/AdvReac Type Severity Reaction Status Date / Time penicillin G (Penicillin G) Allergy Severe ITCHY/RASH Verified 11/07/25 00:09 Sulfa (Sulfonamide Allergy Severe ITCHY,RASH, Verified 11/07/25 00:09 Antibiotics) (Sulfa rash (Sulfonamides)) trimethoprim (From Bactrim) Allergy Severe HIVES Verified 11/07/25 00:09 Penicillins Allergy Intermediate Hives Verified 11/07/25 00:09 sulfamethoxazole (From Allergy Mild Hives Verified 11/07/25 00:09 Bactrim) Review of Systems Review of Systems: Constitutional : No Weight loss, No Fever, No Chills, No Night Sweats, No Fatigue, No Malaise ENT/Mouth : No Hearing loss, No Ear Pain, No Nasal Congestion, No Sinus Pain, No Hoarseness, No sore throat, No Rhinorrhea, No Swallowing Difficulty Eyes: No Eye Pain, No Swelling, No Redness, No Foreign Body, No Discharge, No Vision Changes Cardiovascular : No Chest Pain, No SOB, No Dyspnea on Exertion, No Orthopnea, No Edema, No Palpitations Respiratory : No Cough, No Sputum, No Wheezing, No Smoke Exposure, No Dyspnea Gastrointestinal : No Nausea, No Vomiting, No Diarrhea, No Constipation, No abdominal Pain, No Hematochezia, No Melena Genitourinary : no irregular bleeding, No Dysuria, No Urinary Frequency, No Hematuria, No Urinary Incontinence, No Urgency, No Flank Pain, No Urinary Flow Changes, No Hesitancy Musculoskeletal : Patient complaining of left-sided hip pain and left-sided knee pain Skin : No Skin Lesions, No rash Neuro : No Weakness, No Numbness, No Paresthesias, No Loss of Consciousness, No Dizziness, No Headache Psych : No Anxiety/Panic, No Depression, No SI/HI/AH/VH, No Social Issues, Heme/Lymph: No Bruising, No Bleeding,No Lymphadenopathy Endocrine : No Polyuria, No Polydipsia, No Temperature Intolerance PMFSH Past Medical History 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 Oriented X3. No acute distress. Eyes: Pupils equal, round and reactive to light. ENT: Pharynx normal. Neck: Normal inspection. Neck supple. No lymph nodes noted. No crepitus CVS: Normal heart rate and rhythm. Pulses normal. Normal S1 and S2 Respiratory: No respiratory distress. Breath sounds normal. No Wheezing. No rales Abdomen: Soft and nontender. No rigidity. No distention. Skin: Skin warm and dry. Normal skin color. Normal skin turgor. Extremities: No obvious ecchymosis, no swelling, patient ambulatory but states it hurts when she walks, reports pain with weight-bearing in her left knee and left hip Neuro: Oriented X 3. No motor deficit. No sensory deficit. Moving all extremities. No slurred speech. CN 2 through 12 grossly intact Psych: calm, cooperative, normal affect Vital Signs: Vital Signs - 24 hr 11/07/25 00:02 Temperature 99.3 F Pulse Rate 98 Respiratory Rate 20 Blood Pressure 150/85 H Pulse Oximetry 95 Oxygen Delivery Method Room Air BMI result Body Mass Index 28.3 Course Course Course Narrative: At this time, patient denies any anxiety. Patient states that she does not have vertigo, states that she fell because she slipped on ice going up the stairs into her house, denies head or neck injury We will obtain labs imaging Medications Administered Discontinued Medications Generic Name Dose Route Start Last Admin Trade Name Freq PRN Reason Stop Dose Admin Ondansetron HCl 4 mg 11/07/25 01:19 11/07/25 01:31 Ondansetron Odt 4 Mg Tab.Rapdis TRANSLINGU 11/07/25 01:20 4 mg ONCE ONE Administration Medical Decision Making Medical Decision Making [facility] Narrative: While patient was here in the emergency room, patient reported having nausea, no vomiting. Patient has been ambulatory. Although on arrival patient denied being anxious, patient's said that the only thing that really helps her anxiety is Klonopin. I discussed with the patient that if she is anxious this would be her 4th visit in 24 hours complaining of anxiety. In that case, I would recommend a section 21. Patient immediately changed her story and says that she is not anxious this time. In her 3 previous visits today, it was discussed with the patient that we will not provide her with a 1 time dose or a script for benzodiazepines. My interpretation of labs: No significant abnormality patient's hematology and chemistry, normal sodium, normal LFTs. Urinalysis shows a small amount of leukocyte esterase and WBCs. Patient's urine always looks like this. Microbiology reports are negative for bacterial growth for UTI. At this time, antibiotic is not indicated X-rays of the hip and the knee did not show any acute abnormality, only chronic changes Patient has been ambulating around the emergency room, seems to be feeling better. Case management and physical therapy consult was offered to the patient, patient declined Differential Diagnosis Differential Diagnoses: The differential diagnosis associated with the presentation includes (Mechanical fall, UTI, hip contusion, knee contusion) Lab Data MDM Lab Attestation statement: I reviewed the patient's lab results. 11/07/25 00:29 11/07/25 00:29 Labs: Lab Results 11/07/25 11/07/25 Range/Units 00:29 00:36 WBC 7.2 (4.8-10.8) X10*3/uL RBC 4.32 (4.20-5.50) X10*6/uL Hgb 11.9 L (12.0-16.0) g/dl Hct 35.7 L (37.0-47.0) % MCV 82.6 (80.0-98.0) fL MCH 27.5 (27.0-33.0) pg MCHC 33.3 (31.0-35.0) g/dl RDW 13.8 (11.0-16.0) % Plt Count 276 (160-400) X10*3/uL MPV 8.4 L (9.4-12.3) fL Immature Gran % (Auto) 0.3 (0.0-0.4) % Neut % (Auto) 77.8 H (45-73) % Lymph % (Auto) 16.0 L (20-40) % Kings % (Auto) 5.3 (2-11) % Eos % (Auto) 0.0 (0-4) % Baso % (Auto) 0.6 (0-2) % Lymph # (Auto) 1.2 (1.2-4.9) X10*3/uL Kings # (Auto) 0.4 (0.1-1.2) X10*3/uL Eos # (Auto) 0.0 (0.0-0.4) X10*3/uL Baso # (Auto) 0.0 (0.0-0.2) X10*3/uL Abs Immat Gran (auto) 0.02 (0.00-0.03) X10*3/uL Absolute Neuts (auto) 5.6 (2.0-8.3) x10*3/uL Absolute Nucleated RBC 0.000 (0.0-0.012) X10*3/uL Nucleated RBC % (auto) 0.0 (0.0-0.2) /100WBC Sodium 135 (135-145) mmol/L Potassium 3.9 (3.3-5.1) mmol/L Chloride 101 (96-108) mmol/L Carbon Dioxide 23 (22-29) mmol/L Anion Gap 15 (12-20) BUN 20 H (9-16) mg/dL Creatinine 1.01 (0.5-1.4) mg/dL Estim Creat Clear Calc 44.0 Estimated GFR 52 Random Glucose 112 (60-115) mg/dL Calcium 9.6 (8.4-10.2) mg/dL Total Bilirubin 0.5 (0.0-1.0) mg/dL Direct Bilirubin 0.2 (0.0-0.5) mg/dL AST 28 (5-31) U/L ALT 11 (0-31) U/L Alkaline Phosphatase 92 (39-117) U/L Total Protein 8.1 H (6.5-8.0) g/dL Albumin 4.5 (3.5-5.0) g/dL Urine Color Yellow Urine Appearance Clear Urine pH 5.0 (5.0-9.0) Ur Specific [place] 1.020 (1.005-1.025) Urine Protein Negative (Neg-Trace) mg/dL Urine Glucose (UA) Negative (Negative) mg/dL Urine Ketones Trace (Negative) mg/dL Urine Blood Negative (Negative) Urine Nitrite Negative (Negative) Ur Leukocyte Esterase Small (1+) H (Negative) Urine RBC 0-2 (0-2) /HPF Urine WBC 6-10 H (0-5) /HPF Ur Squamous Epith Cells 0-2 (0-2) /HPF Urine Bacteria None Seen (None Seen) Hyaline Casts 0-2 (0-2) /LPF Urine Opiates Screen Not Detected (Not Detect) Ur Buprenorphine Scrn Not Detected (Not Detect) ng/mL Ur Oxycodone Screen Not Detected (Not Detect) ng/mL Urine Methadone Screen Not Detected (Not Detect) ng/mL Urine Fentanyl Screen Not Detected (Not Detect) Ur Barbiturates Screen Not Detected (Not Detect) Ur Phencyclidine Scrn Not Detected (Not Detect) Ur Amphetamines Screen Not Detected (Not Detect) U Benzodiazepines Scrn Not Detected (Not Detect) Urine Cocaine Screen Not Detected (Not Detect) U Marijuana (THC) Screen Not Detected (Not Detect) Ethyl Alcohol < 10 mg/dL Independent Interpretation I performed an independent interpretation of an: Plain X-Ray Radiology Impression Discussion of test interpretation with radiology: I have reviewed the radiologist's reading. Radiologist Impression: No acute or displaced fracture. No subluxation. Severe bilateral hip osteoarthritis. Moderate arthritic changes noted throughout lower lumbar spine, bilateral SI joints and symphysis pubis. No acute soft tissue abnormality. Impression: 1. No acute fracture or subluxation. 2. Additional findings as above. No acute or displaced fracture. No subluxation. No significant joint effusion. No intra-articular loose bodies. Moderate tricompartmental osteoarthritis. Vascular calcifications. Impression: 1. No fracture or subluxation. 2. Additional findings as above. Independent Historian Clinical information obtained from an independent historian. History obtained from or confirmed by: EMS Discharge Plan Discharge Clinical Impression: Multiple contusions, Fall, Nausea Patient Disposition: Home, Self-Care Instructions: Fall Prevention for Older Adults (ED), Contusion in Adults (ED) Prescriptions: No Action metoprolol succinate 50 mg tablet extended release 24 hr 50 mg PO DAILY Qty: 90 2RF omeprazole 20 mg Tablet,Delayed Release (Dr/Ec) 20 mg PO DAILY@0630 meclizine 12.5 mg tablet 12.5 mg PO TID PRN (Reason: dizziness or vertigo) Qty: 30 0RF meclizine 25 mg tablet 25 mg PO BID PRN (Reason: dizziness) Qty: 14 0RF meclizine 25 mg tablet 25 mg PO BID PRN (Reason: dizziness) Qty: 14 0RF trazodone 50 mg tablet 50 mg PO BEDTIME ferrous sulfate [FeroSul] 325 mg (65 mg iron) tablet 325 mg PO DAILY bisacodyl 5 mg tablet,delayed release (DR/EC) 5 mg PO DAILY PRN (Reason: constipation) rosuvastatin 20 mg tablet 20 mg PO BEDTIME aspirin 81 mg tablet,delayed release (DR/EC) 81 mg PO QAM multivitamin Tablet 1 tab PO QAM melatonin 10 mg tablet extended release 10 mg PO BEDTIME PRN (Reason: Insomnia) cholecalciferol (vitamin D3) 25 mcg (1,000 unit) tablet 25 mcg PO DAILY acetaminophen 500 mg tablet 500 mg PO Q8H PRN (Reason: pain) docusate sodium [Colace] 100 mg capsule 200 mg PO BID Qty: 20 0RF ibuprofen 200 mg tablet 200 mg PO Q6H PRN (Reason: pain) Qty: 20 0RF ketotifen fumarate 0.025 % (0.035 %) drops 1 drp ophthalmic (eye) BID PRN (Reason: allergies) mirtazapine 45 mg tablet 45 mg PO BEDTIME clonazepam 0.5 mg tablet 0.5 mg PO TID hydroxyzine HCl 25 mg tablet 10 mg PO DAILY PRN (Reason: anxiety) fluticasone propionate [Flonase Allergy Relief] 50 mcg/actuation spray,suspension 2 spray intranasal DAILY PRN (Reason: Allergic Symptoms) Rx Instructions: administer into each nostril apixaban 5 mg tablet 5 mg PO BID valsartan 160 mg tablet 160 mg PO QPM meclizine 25 mg tablet 25 mg PO BID PRN (Reason: dizziness) Qty: 14 0RF sertraline 100 mg tablet 100 mg PO DAILY amlodipine 10 mg tablet 10 mg PO DAILY Print Language: Persian
[2025-11-07 00:33] LABS: MANUAL DIFF FLAG NO
[2025-11-07 00:34] LABS: Hematocrit 35.7 % (37.0-47.0); Hemoglobin 11.9 g/dl (12.0-16.0); Imm Gran Abs Auto 0.02 X10*3/uL (0.00-0.03); Imm Gran Pct Auto 0.3 % (0.0-0.4); Lymphocytes Absolute Auto 1.2 X10*3/uL (1.2-4.9); Mean Corpuscular HGB Conc 33.3 g/dl (31.0-35.0); Mean Corpuscular Hemoglobin 27.5 pg (27.0-33.0); Mean Corpuscular Volume 82.6 fL (80.0-98.0); NRBC Abs Auto 0.000 X10*3/uL (0.0-0.012); NRBC Pct Auto 0.0 /100WBC (0.0-0.2); Platelet Count 276 X10*3/uL (160-400); Red Blood Count 4.32 X10*6/uL (4.20-5.50); White Blood Count 7.2 X10*3/uL (4.8-10.8)
[2025-11-07 00:41] LABS: Appearance Urine Clear; Glucose Urine UA Negative (Negative); PH 5.0 (5.0-9.0); Specific Gravity - Urine 1.020 (1.005-1.025); UMIC TRIGGER UACC YES
[2025-11-07 00:44] LABS: UACC Culture Trigger YES
[2025-11-07 00:53] LABS: Cannabinoid Screen Urine Not Detected (Not Detect)
[2025-11-07 00:57] LABS: Alanine Aminotransferase 11 U/L (0-31); Albumin Level 4.5 g/dL (3.5-5.0); Alkaline Phosphatase 92 U/L (39-117); Anion Gap 15 (12-20); Aspartate Amino Transferase 28 U/L (5-31); Blood Urea Nitrogen 20 mg/dL (9-16); Calcium 9.6 mg/dL (8.4-10.2); Carbon Dioxide 23 mmol/L (22-29); Chloride 101 mmol/L (96-108); Creatinine Clr Calc Pharmacy 44.0; Estimated Glomerular Filt Rate 52; Potassium 3.9 mmol/L (3.3-5.1); Sodium 135 mmol/L (135-145); Total Protein 8.1 g/dL (6.5-8.0)
[2025-11-07 02:00] VITALS: BP 150/85; PULSE 98; RESP 20; TEMP 37.4; O2SAT 95
== END 2025-11-07 02:01 | disposition home or self-care (01) ==
PROVIDERS: Emergency Provider Emergency Medicine
DX: F41.9 Anxiety disorder, unspecified (principal); M25.552 Pain in left hip; M25.562 Pain in left knee; R11.0 Nausea; Z79.899 Other long term (current) drug therapy
CPT/HCPCS: 36415; 73502; 73560; 80048; 80076; 80307; 81001; 85025; 87086; 99282

== ENCOUNTER → 2025-11-07 00:15 | Outpatient (BNV) | payer OTHER, SELFPAY | PROVIDERS: Emergency Provider Emergency Medicine; Visit Provider Radiology Diagnostic Radiology | DX: M25.552 Pain in left hip (principal); M25.562 Pain in left knee; Z04.3 Encounter for examination and observation following other accident | CPT/HCPCS: 73502; 73560 ==

== ENCOUNTER 2025-11-07 05:20 | Emergency (ER) | payer OTHER, SELFPAY ==
[2025-11-07 05:29] VITALS: BP 158/77; PULSE 102; RESP 18; TEMP 36.6; O2SAT 95; BMI 26.6
--- NOTE | 2025-11-07 06:06 | ED.ANXIETY ---
HPI - Anxiety General Chief Complaint: Anxiety Stated Complaint: panic attack Time Seen by Provider: 11/07/25 05:25 Source: patient Mode of arrival: ambulatory Limitations: no limitations History of Present Illness ED Provider: Dr. Marta Briscoe HPI narrative: This is the 5th time that the patient checks in for anxiety related symptoms in 24 hours. Previously, I had discussed with the patient that if she would continue coming this morning with anxiety, we would do a section 12 and have her seen by behavioral health. Patient did check in again. Patient states that she is not SI or HI. I was able to talk to 1 of her daughters, Lia. However, she is not healthcare proxy. Lia is trying to get in touch with Mike's other daughter Dori, who is the healthcare proxy. I tried calling myself but the healthcare proxy is not picking up the phone. Lia lives in [place], states that she believes that her sister, Eli as healthcare proxy we will agree to have the patient be evaluated by the care team. Patient does have a therapist who prescribed the medications room area. However, the Talisha states that the patient has been extremely anxious lately, being out of her house, they were not aware that the patient has been visiting so many times the ED. Related Data Home Medications ?Medication ?Instructions ?Recorded ?Confirmed omeprazole 20 mg tablet,delayed 20 mg PO DAILY@0630 08/09/20 08/22/25 release aspirin 81 mg tablet,delayed 81 mg PO QAM 01/28/24 08/22/25 release bisacodyl 5 mg tablet,delayed 5 mg PO DAILY PRN constipation 01/28/24 08/22/25 release ferrous sulfate 325 mg (65 mg 325 mg PO DAILY 01/28/24 08/22/25 iron) tablet (FeroSul) melatonin 10 mg tablet,extended 10 mg PO BEDTIME PRN Insomnia 01/28/24 08/22/25 release multivitamin 1 tab PO QAM 01/28/24 08/22/25 rosuvastatin 20 mg tablet 20 mg PO BEDTIME 01/28/24 08/22/25 trazodone 50 mg tablet 50 mg PO BEDTIME 01/28/24 08/22/25 amlodipine 10 mg tablet 10 mg PO DAILY 02/09/24 08/22/25 acetaminophen 500 mg tablet 500 mg PO Q8H PRN pain 08/09/24 08/22/25 cholecalciferol (vitamin D3) 25 25 mcg PO DAILY 08/20/24 08/22/25 mcg (1,000 unit) tablet sertraline 100 mg tablet 100 mg PO DAILY 03/16/25 08/22/25 apixaban 5 mg tablet 5 mg PO BID 08/22/25 08/22/25 clonazepam 0.5 mg tablet 0.5 mg PO TID 08/22/25 08/22/25 fluticasone propionate 50 2 spray intranasal DAILY PRN 08/22/25 08/22/25 mcg/actuation nasal Allergic Symptoms spray,suspension (Flonase Allergy Relief) hydroxyzine HCl 25 mg tablet 10 mg PO DAILY PRN anxiety 08/22/25 08/22/25 ketotifen fumarate 0.025 % (0.035 1 drp ophthalmic (eye) BID PRN 08/22/25 08/22/25 %) eye drops allergies mirtazapine 45 mg tablet 45 mg PO BEDTIME 08/22/25 08/22/25 valsartan 160 mg tablet 160 mg PO QPM 08/22/25 08/22/25 Previous Rx's ?Medication ?Instructions ?Recorded metoprolol succinate 50 mg 50 mg PO DAILY #90 tabs 09/28/20 tablet,extended release 24 hr docusate sodium 100 mg capsule 200 mg (2 x 100 mg) PO BID #20 caps 02/24/25 (Colace) ibuprofen 200 mg tablet 200 mg PO Q6H PRN pain #20 tabs 07/24/25 meclizine 12.5 mg tablet 12.5 mg PO TID PRN dizziness or 07/26/25 vertigo #30 tabs meclizine 25 mg tablet 25 mg PO BID PRN dizziness #14 tabs 09/22/25 meclizine 25 mg tablet 25 mg PO BID PRN dizziness #14 tabs 10/10/25 meclizine 25 mg tablet 25 mg PO BID PRN dizziness #14 tabs 11/01/25 Allergies Allergy/AdvReac Type Severity Reaction Status Date / Time penicillin G (Penicillin G) Allergy Severe ITCHY/RASH Verified 11/07/25 05:31 Sulfa (Sulfonamide Allergy Severe ITCHY,RASH, Verified 11/07/25 05:31 Antibiotics) (Sulfa rash (Sulfonamides)) trimethoprim (From Bactrim) Allergy Severe HIVES Verified 11/07/25 05:31 Penicillins Allergy Intermediate Hives Verified 11/07/25 05:31 sulfamethoxazole (From Allergy Mild Hives Verified 11/07/25 05:31 Bactrim) Review of Systems Review of Systems: Constitutional : No Weight loss, No Fever, No Chills, No Night Sweats, No Fatigue, No Malaise ENT/Mouth : No Hearing loss, No Ear Pain, No Nasal Congestion, No Sinus Pain, No Hoarseness, No sore throat, No Rhinorrhea, No Swallowing Difficulty Eyes: No Eye Pain, No Swelling, No Redness, No Foreign Body, No Discharge, No Vision Changes Cardiovascular : No Chest Pain, No SOB, No Dyspnea on Exertion, No Orthopnea, No Edema, No Palpitations Respiratory : No Cough, No Sputum, No Wheezing, No Smoke Exposure, No Dyspnea Gastrointestinal : No Nausea, No Vomiting, No Diarrhea, No Constipation, No abdominal Pain, No Hematochezia, No Melena Genitourinary : no irregular bleeding, No Dysuria, No Urinary Frequency, No Hematuria, No Urinary Incontinence, No Urgency, No Flank Pain, No Urinary Flow Changes, No Hesitancy Musculoskeletal : No joint pain, No Myalgias, No Joint Swelling Skin : No Skin Lesions, No rash Neuro : No Weakness, No Numbness, No Paresthesias, No Loss of Consciousness, No Dizziness, No Headache Psych : Complaining of anxiety, No Depression, No SI/HI/AH/VH, No Social Issues, Heme/Lymph: No Bruising, No Bleeding,No Lymphadenopathy Endocrine : No Polyuria, No Polydipsia, No Temperature Intolerance [facility] Past Medical History 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 or 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 (line department supervisor) Alcohol intake: never Patient Tobacco Use Status: Never used Tobacco Smoked in Last 30 Days: No Use of substances other than those prescribed or required for medical reasons: No Advance Directives: Yes Advance Directives on File: Yes Advance Directives Date on File: 01/28/24 Do you have a plan to hurt others: No Plan service: No Physical Exam Exam: Exam: Appearance: Alert. Oriented X3. No acute distress. Eyes: Pupils equal, round and reactive to light. ENT: Pharynx normal. Neck: Normal inspection. Neck supple. No lymph nodes noted. No crepitus CVS: Normal heart rate and rhythm. Pulses normal. Normal S1 and S2 Respiratory: No respiratory distress. Breath sounds normal. No Wheezing. No rales Abdomen: Soft and nontender. No rigidity. No distention. Skin: Skin warm and dry. Normal skin color. Normal skin turgor. Extremities: No lower extremity edema. No Lacerations. No Rash Neuro: Oriented X 3. No motor deficit. No sensory deficit. Moving all extremities. No slurred speech. CN 2 through 12 grossly intact Psych: Very anxious Vital Signs: Vital Signs: Last Vital Signs Temp 98 F 11/07/25 05:29 Pulse 78 11/07/25 10:19 Resp 16 11/07/25 10:19 BP 133/67 11/07/25 10:19 Pulse Ox 95 11/07/25 05:29 O2 Del Method Room Air 11/07/25 10:19 BMI result Body Mass Index 26.6 Course Course Course Narrative: I discussed with the patient that she is now on a section 12. Patient became very anxious, requesting that we give her clonazepam. As mentioned above, at this time we are unable to get in touch with the patient's healthcare proxy. However, I spoke with Mike's other sister who believes that Mike's health care proxy will be agreable to keep the patient on a section 12, until the care team/psychiatry evaluated the patient. We already have labs from previous visits from today Patient is under physician observation waiting to be seen by the care team Psychiatric consult has been requested to determine if patient has capacity It is unclear why the patient runs out of her medications before time. Patient is supposed to have a INTERNET [employer] SPECIALIST who keeps the medications under lock and provide the medications on schedule. Reevaluation(s) Reevaluation #1: 1:06 PM 11/07/2025 (EMILIA MARTINO): Family wants to take her home she has been cleared by care team and case management at this time and physician observation Medications Administered Discontinued Medications Generic Name Dose Route Start Last Admin Trade Name Beau PRN Reason Stop Dose Admin Hydroxyzine HCl 25 mg 11/07/25 07:02 11/07/25 07:29 Hydroxyzine Hcl 25 Mg Tablet PO 11/07/25 07:03 25 mg ONCE ONE Administration Medical Decision Making Medical Decision Making MDM Narrative: My interpretation of labs: No significant abnormality in patient's hematology and chemistry, urine toxicology negative, ETOH negative Patient is on a section 12 Care team consult pending We have been unable to reach the patient is listed as her healthcare proxy. However, when I spoke to the patient, Mike says that her daughter used to be her healthcare proxy, but they do not get along and Mike removed her as the healthcare proxy. This is yet to be confirmed Differential Diagnosis Differential Diagnoses: The differential diagnosis associated with the presentation includes (Severe anxiety) Admission/Observation Consideration of admission/observation: Escalation of care including admission/observation considered Critical Care Time Critical Care Time Critical Care Time: Yes Total Critical Care Time: 45 Attestation: I have personally provided critical care time. Time includes review of lab data, radiology results, discussion with consultants, and monitoring for potential decompensation. Intervention performed as documented. Discharge Plan Discharge Clinical Impression: Generalized anxiety disorder with panic attacks Patient Disposition: Home, Self-Care Instructions: Generalized Anxiety Disorder (ED) Additional Instructions: You were seen in our Emergency Department today for treatment of a behavioral health issue. It is important after your visit that you follow up with either your behavioral health provider or a primary care doctor within 7 days.? If you have trouble finding a therapist you can reach out to [address] [phone] The National Suicide and Crisis Lifeline can be reached 7 days a week 24 hours a day.? Call 988 to speak with someone.? Return for any worsening symptoms or concerns such as thoughts of self harm or harm to others. Please call 911 if you feel your mental health is worsening.? Prescriptions: No Action metoprolol succinate 50 mg tablet extended release 24 hr 50 mg PO DAILY Qty: 90 2RF omeprazole 20 mg Tablet,Delayed Release (Dr/Ec) 20 mg PO DAILY@0630 meclizine 12.5 mg tablet 12.5 mg PO TID PRN (Reason: dizziness or vertigo) Qty: 30 0RF meclizine 25 mg tablet 25 mg PO BID PRN (Reason: dizziness) Qty: 14 0RF meclizine 25 mg tablet 25 mg PO BID PRN (Reason: dizziness) Qty: 14 0RF trazodone 50 mg tablet 50 mg PO BEDTIME ferrous sulfate [FeroSul] 325 mg (65 mg iron) tablet 325 mg PO DAILY bisacodyl 5 mg tablet,delayed release (DR/EC) 5 mg PO DAILY PRN (Reason: constipation) rosuvastatin 20 mg tablet 20 mg PO BEDTIME aspirin 81 mg tablet,delayed release (DR/EC) 81 mg PO QAM multivitamin Tablet 1 tab PO QAM melatonin 10 mg tablet extended release 10 mg PO BEDTIME PRN (Reason: Insomnia) cholecalciferol (vitamin D3) 25 mcg (1,000 unit) tablet 25 mcg PO DAILY acetaminophen 500 mg tablet 500 mg PO Q8H PRN (Reason: pain) docusate sodium [Colace] 100 mg capsule 200 mg PO BID Qty: 20 0RF ibuprofen 200 mg tablet 200 mg PO Q6H PRN (Reason: pain) Qty: 20 0RF ketotifen fumarate 0.025 % (0.035 %) drops 1 drp ophthalmic (eye) BID PRN (Reason: allergies) mirtazapine 45 mg tablet 45 mg PO BEDTIME clonazepam 0.5 mg tablet 0.5 mg PO TID hydroxyzine HCl 25 mg tablet 10 mg PO DAILY PRN (Reason: anxiety) fluticasone propionate [Flonase Allergy Relief] 50 mcg/actuation spray,suspension 2 spray intranasal DAILY PRN (Reason: Allergic Symptoms) Rx Instructions: administer into each nostril apixaban 5 mg tablet 5 mg PO BID valsartan 160 mg tablet 160 mg PO QPM meclizine 25 mg tablet 25 mg PO BID PRN (Reason: dizziness) Qty: 14 0RF sertraline 100 mg tablet 100 mg PO DAILY amlodipine 10 mg tablet 10 mg PO DAILY Print Language: Ivorian
--- OUTSIDE RECORDS SUMMARY | 2025-11-07 06:21 | XMS_ITS | Encounter Summary ---
Author Organization [employer] Address [address] [facility] [address] [place] [address] Care Team Providers Care Unpaid Intern Name Role Phone Name, Nitin PIKE Primary Care Provider [phone] Reason for Visit * Reason Comments Med Refill Encounter Details Date Type Department Care Team (Late st Contact Info) Description 04/20/2025 Refill [facility] [address] [place] [address] Zechariah Cheung MD [address] [place] [address] Allergic rhinitis, unspecified seasonality, unspecified trigger Social [...] Visit [facility] [address] [place] [address] NameNitin MD [address] [place] [address] documented as of this encounter Visit Diagnoses Diagnosis Allergic rhinitis, unspecified seasonality, unspecified trigger documented in this encounter Additional Health Concerns Assessment Noted Time PHQ-9 Depression Total Score: 6 02/13/20 9:14 AM EDT documented as of this encounter Care Teams Unpaid Intern Relationship Specialty Start Date End Date Nitin Echevarria MD [address] [place] [phone] PCP - General Family Medicine 08/26/17 [facility] 09/01/24 documented as of this encounter
--- OUTSIDE RECORDS SUMMARY | 2025-11-07 06:21 | XMS_ITS | Encounter Summary ---
Author Organization [employer] Address [address] [facility] [address] [place] [address] Care Team Providers Care Bradley Linebacker Crewmember Name Role Phone Name, Nitin PIKE Primary Care Provider [phone] Reason for Visit * Reason Onset Date Comments Med Refill 11/08/2024 Encounter Details Date Type Department Care Team ([facility] st Contact Info) Description 11/08/2024 Telephone [facility] [address] [place], [place] [phone] Name, MD Nitin [address] [place] [address] Med Refill Social History Tobacco Use Types [...] sent to: [facility] - [place], [place] - [address] [facility] documented in this encounter Plan of Treatment Upcoming Encounters Date Type Department Care Team ([facility] st Contact Info) Description 11/07/2025 10:00 AM EST Office Visit [facility] [address] [place] [address] Name, MD Nitin [address] [place] [address] documented as of this encounter Visit Diagnoses Not on filedocumented in this encounter Additional Health Concerns Assessment Noted Time PHQ-9 Depression Total Score: 6 02/13/20 24 9:14 AM EDT documented as of this encounter Care Teams Bradley Linebacker Crewmember Relationship Specialty Start Date End Date Name, MD Nitin [address] [place] [address] PCP - General Family Medicine 08/26/17 [facility] 09/01/24 documented as of this encounter
--- OUTSIDE RECORDS SUMMARY | 2025-11-07 06:22 | XMS_ITS | Encounter Summary ---
Author Organization [employer] Address [address] [facility] [address] [place] [address] Care Team Providers Care It Application Development Manager Name Role Phone Name, Nitin PIKE Primary Care Provider [phone] Reason for Visit * Reason Onset Date Comments FYI 01/21/2024 ER Follow-up 01/21/2024 Encounter Details Date Type Department Care Team ([facility] st Contact Info) Description 01/21/2024 Telephone [facility] [address] [place], [place] [phone] Name, MD Nitin [address] [place] [address] FYI; ER Follow-up Social History Tobacco Use [...] - 01/21/2024 1:54 PM EDT Message from [facility] ED noted. [facility] note sent to medical records. PCP does not rx Trazodone. Pt to f/u with psych prescriber. Pt is scheduled for f/u with pcp 02/13/24. * Telephone Encounter - Janette Huitron - 01/21/2024 9:45 AM EDT Tc from nata with [facility] ED calling in regards to pt. [...] Office Visit [facility] [address] [place] [address] Name, MD Nitin [address] [place] [address] documented as of this encounter Visit Diagnoses Not on filedocumented in this encounter Additional Health Concerns Assessment Noted Time PHQ-9 Depression Total Score: 12 023 9:37 AM EDT documented as of this encounter Care Teams It Application Development Manager Relationship Specialty Start Date End Date Name, MD Nitin [address] [place] [address] PCP - General Family Medicine 08/26/17 [facility] 09/01/24 documented as of this encounter
--- OUTSIDE RECORDS SUMMARY | 2025-11-07 06:22 | XMS_ITS | Encounter Summary ---
Author Organization [employer] Address [address] [facility] [address] [place] [address] Care Team Providers Care Verification Manager Name Role Phone Name, Nitin PIKE Primary Care Provider [phone] Reason for Visit * Reason Comments Med Refill Encounter Details Date Type Department Care Team (Late Contact Info) Description 03/02/2023 Refill [facility] [address] [place] [phone] Karely Patiño MD [address] [place] [address] [phone] Social History Tobacco Use Types Packs/Day Years [...] EST Office Visit [facility] [address] [place] [phone] Name, MD Nitin [address] [place] [address] documented as of this encounter Visit Diagnoses Not on filedocumented in this encounter Care Teams Verification Manager Relationship Specialty Start Date End Date Name, MD Nitin [address] [place] [address] PCP - General Family Medicine 08/26/17 [facility] 09/01/24 documented as of this encounter
--- OUTSIDE RECORDS SUMMARY | 2025-11-07 06:22 | XMS_ITS | Encounter Summary ---
Author Organization [employer] Address [address] [facility] [address] [place] [address] Care Team Providers Care Cap Blocker Name Role Phone Name, Nitin PIKE Primary Care Provider [phone] Reason for Visit * Reason Onset Date Comments Verbal Orders 12/15/2023 Encounter Details Date Type Department Care Team ([facility] st Contact Info) Description 12/15/2023 Telephone [facility] [address] [place], [place] [phone] Name, MD Nitin [address] [place] [address] Verbal Orders Social History Tobacco Use Types [...] 12:03 PM EST Tc from [facility] with [employer] requesting verbal order to see pt 2 times a week for 4 weeks for Occupational Therapy, please contact [employer] at [phone] documented in this encounter Plan of Treatment Upcoming Encounters Date Type Department Care Team (Late st Contact Info) Description 11/07/2025 10:00 AM EST Office Visit [facility] [address] [place] [address] Name, MD Nitin [address] [place] [address] documented as of this encounter Visit Diagnoses Not on filedocumented in this encounter Additional Health Concerns Assessment Noted Time PHQ-9 Depression Total Score: 12 023 9:37 AM EDT documented as of this encounter Care Teams Cap Blocker Relationship Specialty Start Date End Date Name, MD Nitin [address] [place] [address] PCP - General Family Medicine 08/26/17 [facility] 09/01/24 documented as of this encounter
--- OUTSIDE RECORDS SUMMARY | 2025-11-07 06:22 | XMS_ITS | Encounter Summary ---
Author Organization [employer] Address [address] [facility] [address] [place] [address] Care Team Providers Care Presiding Steward Name Role Phone Name, Nitin PIKE Primary Care Provider [phone] Reason for Visit * Reason Onset Date Comments ER Follow-up 05/04/2024 Encounter Details Date Type Department Care Team ([facility] Contact Info) Description 05/04/2024 Telephone [facility] [address] [place], [place] [phone] Name, MD Nitin [address] [place] [address] ER Follow-up Social History Tobacco Use Types [...] 11:01 AM EDT T/C to pt. Through [facility] id - [id number] for below message, No answer. LVM to call back [phone] . * Telephone Encounter - Adithya Solorzano - 05/04/2024 9:35 AM EDT Noreen with [facility] calling to report ED visit on : Date: 04/28 Hospital: [facility] Seen for: UTI, Nausea, Rash. Noreen advised will be forwarding message to team nurses. Please contact pt at [phone]. documented in this encounter Plan of Treatment Upcoming Encounters Date Type Department Care Team (Late st Contact Info) Description 11/07/2025 10:00 AM EST Office Visit [facility] [address] [place] [address] Name, MD Nitin [address] [place] [address] documented as of this encounter Visit Diagnoses Not on filedocumented in this encounter Additional Health Concerns Assessment Noted Time PHQ-9 Depression Total Score: 6 02/13/20 9:14 AM EDT documented as of this encounter Care Teams Presiding Steward Relationship Specialty Start Date End Date Name, MD Nitin [address] [place] [address] PCP - General Family Medicine 08/26/17 [facility] 09/01/24 documented as of this encounter
--- OUTSIDE RECORDS SUMMARY | 2025-11-07 06:22 | XMS_ITS | Encounter Summary ---
Author Organization [employer] Address [address] [facility] [address] [place] [address] Care Team Providers Care Medical Information Officer Name Role Phone Name, Nitin PIKE Primary Care Provider [phone] Reason for Visit * Reason Onset Date Comments Call Back Request 03/14/2025 Encounter Details Date Type Department Care Team ([facility] st Contact Info) Description 03/14/2025 Telephone [facility] [address] [place], [place] [phone] Name, MD Nitin [address] [place] [address] Call Back Request Social History Tobacco Use [...] Description 11/07/2025 10:00 AM EST Office Visit [facility] [address] [place] [address] Name, MD Nitin [address] [place] [address] documented as of this encounter Visit Diagnoses Not on filedocumented in this encounter Additional Health Concerns Assessment Noted Time PHQ-9 Depression Total Score: 6 02/13/20 9:14 AM EDT documented as of this encounter Care Teams Medical Information Officer Relationship Specialty Start Date End Date Name, MD Nitin [address] [place] [address] PCP - General Family Medicine 08/26/17 [facility] 09/01/24 documented as of this encounter
--- OUTSIDE RECORDS SUMMARY | 2025-11-07 06:22 | XMS_ITS | Encounter Summary ---
Author Organization [employer] Address [address] [facility] [address] [place] [address] Care Team Providers Care Postdoctoral Fellow Name Role Phone Name, Nitin PIKE Primary Care Provider [phone] Encounter Details Date Type Department Care Team ([facility] Contact Info) Description 12/17/2022 Orders Only [facility] [address] [place], [place] [phone] Lisha Kelly LPN Social History Tobacco Use [...] [facility] [address] [place] [address] Nitin Echevarria MD [address] [place] [address] documented as of this encounter Visit Diagnoses Not on filedocumented in this encounter Care Teams Postdoctoral Fellow Relationship Specialty Start Date End Date NameNitin MD [address] [place] [address] PCP - General Family Medicine 08/26/17 [facility] 09/01/24 documented as of this encounter
--- OUTSIDE RECORDS SUMMARY | 2025-11-07 06:22 | XMS_ITS | Encounter Summary ---
Author Organization [employer] Address [address] [facility] [address] [place] [address] Care Team Providers Care Orthopedic Dentist Name Role Phone Name, Nitin PIKE Primary Care Provider [phone] Reason for Visit * Reason Comments Med Refill Encounter Details Date Type Department Care Team ([facility] st Contact Info) Description 04/01/2024 Refill [facility] [address] [place], [place] [phone] Name, MD Nitin [address] [place] [address] Rash Social History Tobacco Use Types Packs/Day [...] AM EST Office Visit [facility] [address] [place] [address] NameNitin MD [address] [place] [address] documented as of this encounter Visit Diagnoses Diagnosis Rash Rash and other nonspecific skin eruption documented in this encounter Additional Health Concerns Assessment Noted Time PHQ-9 Depression Total Score: 6 02/13/20 24 9:14 AM EDT documented as of this encounter Care Teams Orthopedic Dentist Relationship Specialty Start Date End Date NameNitin MD [address] [place] [address] PCP - General Family Medicine 08/26/17 [facility] 09/01/24 documented as of this encounter
--- OUTSIDE RECORDS SUMMARY | 2025-11-07 06:22 | XMS_ITS | Encounter Summary ---
Author Organization [employer] Address [address] [facility] [address] [place] [address] Care Team Providers Care Research Librarian Name Role Phone Name, Nitin PIKE Primary Care Provider [phone] Reason for Visit * Reason Onset Date Comments ER Follow-up 05/31/2024 Encounter Details Date Type Department Care Team ([facility] Contact Info) Description 05/31/2024 Telephone [facility] [address] [place], [place] [phone] Name, MD Nitin 230 [place] [address] ER Follow-up Social History Tobacco Use Types [...] 1:36 PM EDT T/C to Pat ([facility]) [phone] for below message, no answer. LVM to call back on [phone]. * Telephone Encounter - Melany Santos RN - 05/31/2024 1:32 PM EDT DAVID T/C to pt. Through [facility] id - [id number] for below message, pt. Had recent fall and ED visit at [facility]. RN will request GRACE piedra from [facility]. Pt. Is doing good, states I [...] visit on : Date: 05/26 Hospital: [facility] Seen for: Fall, Back Pain Pat [...] Visit [facility] [address] [place] [address] Name, MD Nitin [address] [place] [address] documented as of this encounter Visit Diagnoses Not on filedocumented in this encounter Additional Health Concerns Assessment Noted Time PHQ-9 Depression Total Score: 6 02/13/20 24 9:14 AM EDT documented as of this encounter Care Teams Research Librarian Relationship Specialty Start Date End Date Name, MD Nitin [address] [place] [address] PCP - General Family Medicine 08/26/17 [facility] 09/01/24 documented as of this encounter
--- OUTSIDE RECORDS SUMMARY | 2025-11-07 06:22 | XMS_ITS | Encounter Summary ---
Author Organization [employer] Address [address] [facility] [address] [place] [address] Care Team Providers Care Deputy Attorney General Name Role Phone Name, Nitin PIKE Primary Care Provider Reason for Visit * Reason Comments Med Refill Encounter Details Date Type Department Care Team (Late st Contact Info) Description 01/09/2025 Refill [facility] 230 [place], [place] [phone] Name, MD Nitin [address] [place] [address] Hypertension, unspecified type Social History Tobacco Use [...] AM EST Office Visit [facility] [address] [place] [phone] NameNitin MD [address] [place] [address] documented as of this encounter Visit Diagnoses Diagnosis Hypertension, unspecified type documented in this encounter Additional Health Concerns Assessment Noted Time PHQ-9 Depression Total Score: 6 02/13/20 9:14 AM EDT documented as of this encounter Care Teams Deputy Attorney General Relationship Specialty Start Date End Date NameNitin MD [address] [place] [address] PCP - General Family Medicine 08/26/17 [facility] 09/01/24 documented as of this encounter
--- OUTSIDE RECORDS SUMMARY | 2025-11-07 06:22 | XMS_ITS | Encounter Summary ---
Author Organization [employer] Address [address] [facility] [address] [place] [address] Care Team Providers Care Experimental Mechanic Name Role Phone Name, Nitin PIKE Primary Care Provider [phone] Reason for Visit * Reason Comments Med Refill Encounter Details Date Type Department Care Team (Late st Contact Info) Description 07/25/2025 Refill [facility] [address] [place], [place] [phone] Name, MD Nitin [address] [place] [address] Social History Tobacco Use Types Packs/Day Years [...] Description 11/07/2025 10:00 AM EST Office Visit [facility] [address] [place] [address] NameNitin MD [address] [place] [address] documented as of this encounter Visit Diagnoses Not on filedocumented in this encounter Additional Health Concerns Assessment Noted Time PHQ-9 Depression Total Score: 3 04/29/20 25 9:41 AM EDT documented as of this encounter Care Teams Experimental Mechanic Relationship Specialty Start Date End Date NameNitin MD [address] [place] [address] PCP - General Family Medicine 08/26/17 [facility] 09/01/24 documented as of this encounter
--- OUTSIDE RECORDS SUMMARY | 2025-11-07 06:22 | XMS_ITS | Encounter Summary ---
Author Organization [employer] Address [address] [facility] [address] [place] [address] Care Team Providers Care Test Fixture Assembler Name Role Phone Name, Nitin PIKE Primary Care Provider [phone] Encounter Details Date Type Department Care Team ([facility] Contact Info) Description 01/06/2023 Orders Only [facility] [address] [place], [place] [phone] Lisha Kelly LPN Social History Tobacco Use [...] Visit [facility] 230 [place], [place] [phone] NameNitin MD 230 [place] [address] documented as of this encounter Visit Diagnoses Not on filedocumented in this encounter Care Teams Test Fixture Assembler Relationship Specialty Start Date End Date NameNitin MD 230 [place] [address] PCP - General Family Medicine 08/26/17 [facility] 09/01/24 documented as of this encounter
--- OUTSIDE RECORDS SUMMARY | 2025-11-07 06:22 | XMS_ITS | Encounter Summary ---
Author Organization [employer] Address 75 [facility] 7[address] [place] [address] Care Team Providers Care Cold Rolling Coordinator Name Role Phone Name, Nitin PIKE Primary Care Provider [phone] Reason for Visit * Reason Comments Med Refill Encounter Details Date Type Department Care Team (Late st Contact Info) Description 08/16/2024 Refill [facility] [address] [place], [place] [phone] Name, MD Nitin [address] [place] [address] Heartburn Social History Tobacco Use Types Packs/Day [...] Description 11/07/2025 10:00 AM EST Office Visit [facility] [address] [place] [address] NameNitin MD [address] [place] [address] documented as of this encounter Visit Diagnoses Diagnosis Heartburn documented in this encounter Additional Health Concerns Assessment Noted Time PHQ-9 Depression Total Score: 6 02/13/20 24 9:14 AM EDT documented as of this encounter Care Teams Cold Rolling Coordinator Relationship Specialty Start Date End Date NameNitin MD [address] [place] [address] PCP - General Family Medicine 08/26/17 [facility] 09/01/24 documented as of this encounter
--- OUTSIDE RECORDS SUMMARY | 2025-11-07 06:22 | XMS_ITS | Encounter Summary ---
Author Organization [employer] Address [address] [facility] 7[address] [place] [address] Care Team Providers Care Mental Health Technician Name Role Phone Name, Nitin PIKE Primary Care Provider [phone] Encounter Details Date Type Department Care Team (Late st Contact Info) Description 11/07/2025 Orders Only GENERIC EXTERNAL DATA DEPARTMENT Provider, [...] Upcoming Encounters Date Type Department Care Team ([facility] st Contact Info) Description 11/07/2025 10:00 AM EST Office Visit [facility] [address] [place] [address] Name, MD Nitin [address] [place] [address] documented as of this encounter Procedures Procedure Name Priority Date/Time Associated Diagnosis Comments XR HIP 2 OR 3 VIEWS LEFT Routine 11/07/2025 1:12 AM EST XR KNEE 1-2 VIEWS LEFT Routine 11/07/2025 1:11 AM EST URINALYSIS, COMPLETE, WITH REFLEX TO CULTURE Routine 11/07/2025 12:36 AM EST DRUG MONITOR, PANEL 1, SCREEN, URINE Routine 11/07/2025 12:36 AM EST ETHANOL Routine 11/07/2025 12:29 AM EST CBC WITH AUTO DIFFERENTIAL Routine 11/07/2025 12:29 AM EST HEPATIC FUNCTION PANEL Routine 11/07/2025 12:29 AM EST BASIC METABOLIC PANEL Routine 11/07/2025 12:29 AM EST documented in this encounter Results * XR Hip 2 or 3 Views Left (11/07/2025 1:12 AM EST) Anatomical Region Laterality Modality Lower Extremities, Hip Left Radiograp hic Imaging 11/07/2025 1:12 AM EST Narrative 11/07/2025 1:13 AM EST [address] [address] XRay Report Signed Patient: Noreen Wing MR#: [id number] : 1945 Acct:[id number] Age/Sex: 80 / F ADM Date: 11/07/25 Loc: HO.ED Attending Dr: Ordering Physician: Marta Briscoe MD Date of Service: 11/07/25 Procedure(s): XR hip LT min 2V Accession Number(s): [id number] cc: [facility]; Marta Briscoe MD Reason for Exam: fall, pain CLINICAL HISTORY: fall, pain 3 view, pelvis and left hip Comparison: CT abdomen and pelvis 07/28/2025 Findings: No acute or displaced fracture. No subluxation. Severe bilateral hip osteoarthritis. Moderate arthritic changes noted throughout lower lumbar spine, bilateral SI joints and symphysis pubis. No acute soft tissue abnormality. Impression: 1. No acute fracture or subluxation. 2. Additional findings as above. This document has been electronically signed by: Jayda Gottlieb MD on 11/07/2025 01:12:10 Dictated By: Jayda Gottlieb MD Signed By: <Electronically signed by Jayda Gottlieb MD in OV> 11/07/25112 DD/ 1 TD/TT: 11/07/25111 Outside Laborer: Procedure Note Donotuseinterpreter, Image - 11/07/[address] [address] XRay Report Signed Patient: Noreen WingMR#: [id number] : 1945cct:[id number] Age/Sex: 80 / FADM Date: 11/07/25 Loc: HO.ED Attending Dr: Ordering Physician: Marta Briscoe MD Date of Service: 11/07/25 Procedure(s): XR hip LT min 2V Accession Number(s): [id number] cc: [facility]; Marta Briscoe MD Reason for Exam: fall, pain CLINICAL HISTORY: fall, pain 3 view, pelvis and left hip Comparison: CT abdomen and pelvis 07/28/2025 Findings: No acute or displaced fracture. No subluxation. Severe bilateral hip osteoarthritis. Moderate arthritic changes noted throughout lower lumbar spine, bilateral SI joints and symphysis pubis. No acute soft tissue abnormality. Impression: 1. No acute fracture or subluxation. 2. Additional findings as above. This document has been electronically signed by: Jayda Gottlieb MD on 11/07/2025 01:12:10 Dictated By: Jayda Gottlieb MD Signed By: <Electronically signed by Jayda Gottlieb MD in OV> 11/07/25112 DD/ 1 TD/TT: 11/07/25111 Outside Laborer: [facility] External Provider IMG XR PROCEDURES Final Result * XR Knee 1-2 Views Left (11/07/2025 1:11 AM EST) Anatomical Region Laterality Modality Lower Extremities, Knee Left Radiogra phic Imaging 11/07/2025 1:11 AM EST Narrative 11/07/2025 1:13 AM EST [place] [address] XRay Report Signed Patient: Noreen Wing MR#: [id number] : 1945 Acct:[id number] Age/Sex: 80 / F ADM Date: 11/07/25 Loc: HO.ED Attending Dr: Ordering Physician: Marta Briscoe MD Date of Service: 11/07/25 Procedure(s): XR knee LT 2V Accession Number(s): [id number] cc: [facility]; Marta Briscoe MD Reason for Exam: fall, pain CLINICAL HISTORY: fall, pain 2 view left knee Comparison: Left knee radiograph 09/18/2025 Findings: No acute or displaced fracture. No subluxation. No significant joint effusion. No intra-articular loose bodies. Moderate tricompartmental osteoarthritis. Vascular calcifications. Impression: 1. No fracture or subluxation. 2. Additional findings as above. This document has been electronically signed by: Jayda Gottlieb MD on 11/07/2025 01:11:10 Dictated By: Jayda Gottlieb MD Signed By: <Electronically signed by Jayda Gottlieb MD in OV> 11/07/25111 DD/ 0 TD/TT: 11/07/25110 Outside Laborer: Procedure Note Donotuseinterpreter, Image - 11/07/2025 [place] [address] XRay Report Signed Patient: Jennifer Wing#: [id number] : 1945cct:[id number] Age/Sex: 80 / FADM Date: 11/07/25 Loc: .ED Attending Dr: Ordering Physician: Marta Briscoe MD Date of Service: 11/07/25 Procedure(s): XR knee LT 2V Accession Number(s): [id number] cc: [facility]; Marta Briscoe MD Reason for Exam: fall, pain CLINICAL HISTORY: fall, pain 2 view left knee Comparison: Left knee radiograph 09/18/2025 Findings: No acute or displaced fracture. No subluxation. No significant joint effusion. No intra-articular loose bodies. Moderate tricompartmental osteoarthritis. Vascular calcifications. Impression: 1. No fracture or subluxation. 2. Additional findings as above. This document has been electronically signed by: Jayda Gottlieb MD on 11/07/2025 01:11:10 Dictated By: Jayda Gottlieb MD Signed By: <Electronically signed by Jayda Gottlieb MD in OV> 11/07/25111 DD/ 0 TD/TT: 11/07/25110 Outside Laborer: [facility] External Provider IMG XR PROCEDURES Final Result * Drug Monitoring, Panel 1, Screen, Urine (11/07/2025 12:36 AM EST) Opiate Screen Urine Not Detected Not Detect [facility] Comment:Opiate cut-off is 30 0 ng/mL.Positive results are unconfirmed and should not be used fornon-medical purposes. Barbiturates, Urine Not Detected Not Detect [facility] Comment:Barbiturate cut-off is 200 ng/mL.Positive results are unconfirmed and should not be used fornon-medical purposes. Phencyclidine Screen Urine Not Detected Not Detect [facility] Comment:Phencyclidine cut-of f is 25 ng/mL.Positive results are unconfirmed and should not be used fornon-medical purposes. Amphetamine Screen Urine Not Detected Not Detect [facility] Comment:Amphetamine cut-off is 1000 ng/mL.Positive results are unconfirmed and should not be used fornon-medical purposes. Benzodiazepines Screen Urine Not Detected Not Detect [facility] Comment:Benzodiazepine cut-o ff is 200 ng/mL.Positive results are unconfirmed and should not be used fornon-medical purposes. Cocaine Screen Urine Not Detected Not Detect [facility] Comment:Cocaine cut-off is 3 00 ng/mL.Positive results are unconfirmed and should not be used fornon-medical purposes. Cannabinoid Screen Urine Not Detected Not Detect [facility] Comment:Cannabinoid cut-off is 50 ng/mL.Positive results are unconfirmed and should not be used fornon-medical purposes. Methadone Screen, Urine Not Detected Not Detect ng/mL [facility] Comment:Methadone cut-off is 300 ng/mL.Positive results are unconfirmed and should not be used fornon-medical purposes. FENTANYL URINE Not Detected Not Detect [facility] Comment:Fentanyl cut-off is 1 ng/mL.Positive results are unconfirmed and should not be used fornon-medical purposes. Oxycodone Urine Screen Not Detected Not Detect ng/mL [facility] Comment:Oxycodone cut-off is 100 ng/mL.Positive results are unconfirmed and should not be used fornon-medical purposes. Buprenorphine Screen Not Detected Not Detect ng/mL [facility] Comment:Buprenorphine cut-of f is 5 ng/mL.Positive results are unconfirmed and should not be used fornon-medical purposes. 11/07/2025 12:3 6 AM EST 11/07/2025 12:39 AM EST us Generic External Data Provider LAB URINE ORDERAB LES Final Result Performing Organization Address [facility]/ZIP Co de Phone Number [facility] [address] [place] [address] [phone] * (ABNORMAL) Urinalysis, Complete, with Reflex to Culture (11/07/2025 12:36 AM EST) Color Urine Yellow [facility] Appearance Urine Clear [facility] PH 5.0 5.0 - 9.0 [facility] Glucose Urine UA Negative Negative mg/dL [facility] Urine Blood Negative Negative [facility] Specific [place] - Urine 1.020 1.005 - 1.025 [facility] Urine Protein Negative Neg-Trace mg/dL [facility] Urine Ketones Trace Negative mg/dL [facility] Nitrite Urine Negative Negative [facility] Leukocyte Esterase Urine Small (1+)(A) Negative [facility] RBC Urine 0-2 0 - 2 /HPF [facility] Urine WBC 6-10(A) 0 - 5 /HPF [facility] Urine Squamous Epithelial Cell 0-2 0 - 2 /HPF [facility] Urine Bacteria None Seen None Seen [facility] Hyaline Casts, Urine 0-2 0 - 2 /LPF [facility] 11/07/2025 12:3 6 AM EST 11/07/2025 12:39 AM EST Narrative [facility] - 11/07/2025 12:44 AM EST Urine, Clean Catch us Generic External Data Provider LAB URINE ORDERAB LES Final Result Performing Organization Address [facility]/ZIP Co de Phone Number [facility] [address] [place] [address] [phone] * Ethanol (11/07/2025 12:29 AM EST) ETHANOL (MG/DL) IN SER/PLAS <10 mg/dL [facility] Comment:Serum/plasma ethanol results are to be used formedical/treatment purposes only. 11/07/2025 12:2 9 AM EST 11/07/2025 12:31 AM EST us Generic External Data Provider LAB BLOOD ORDERAB LES Final Result [facility] [address] [place] [phone] * (ABNORMAL) Basic Metabolic Panel (11/07/2025 12:29 AM EST) Pathologist [facility] Sodium 135 135 - 145 mmol/L [facility] Potassium 3.9 3.3 - 5.1 mmol/L [facility] Chloride 101 96 - 108 mmol/L [facility] Carbon Dioxide 23 22 - 29 mmol/L [facility] Anion Gap 15 12 - 20 [facility] Urea Nitrogen (BUN) 20(H) 9 - 16 mg/dL [facility] Creatinine, Serum 1.01 0.5 - 1.4 mg/dL [facility] Creatinine Clr Calc Pharmacy 44.0 [facility] Comment:Provided height and weight: 165.1 cm,77.111 kg.eGFR (calculated from the MDRD study equation) and eCrCl(calculated from the Cockcroft-Gault equation) are based ondifferent parameters and may not yield comparable results.If eCrCl result is absurd, please check patient'sheight/weight. Estimated Glomerular Filt Rate 52 [facility] Comment:Chronic Kidney Disea se: Estimated GFR < 60 mL/min/1.84n9Ywphvt Kidney Disease: Estimated GFR < 15 mL/min/1.73m2 Glucose 112 60 - 115 mg/dL [facility] Calcium 9.6 8.4 - 10.2 mg/dL [facility] 11/07/2025 12:2 9 AM EST 11/07/2025 12:31 AM EST us Generic External Data Provider LAB BLOOD ORDERAB LES Final Result Performing Organization Address [facility]/ZIP Co de Phone Number [facility] [address] [place] [phone] * (ABNORMAL) Hepatic Function Panel (11/07/2025 12:29 AM EST) Bilirubin, Total 0.5 0.0 - 1.0 mg/dL [facility] Bilirubin, Direct 0.2 0.0 - 0.5 mg/dL [facility] Aspartate Amino Transferase 28 5 - 31 U/L [facility] Alanine Aminotransferase 11 0 - 31 U/L [facility] Total Protein 8.1(H) 6.5 - 8.0 g/dL [facility] Albumin Level 4.5 3.5 - 5.0 g/dL [facility] Alkaline Phosphatase 92 39 - 117 U/L [facility] 11/07/2025 12:2 9 AM EST 11/07/2025 12:31 AM EST us Generic External Data Provider LAB BLOOD ORDERAB LES Final Result Performing Organization Address [facility] Co de Phone Number [facility] [address] [place] [phone] * (ABNORMAL) CBC auto differential (11/07/2025 12:29 AM EST) White Blood Count 7.2 4.8 - 10.8 X10*3/uL [facility] Red Blood Count 4.32 4.20 - 5.50 X10*6/uL [facility] Hemoglobin 11.9(L) 12.0 - 16.0 g/dl [facility] Hematocrit 35.7(L) 37.0 - 47.0 % [facility] Mean Corpuscular Volume 82.6 80.0 - 98.0 fL [facility] Mean Corpuscular Hemoglobin 27.5 27.0 - 33.0 pg [facility] Mean Corpuscular HGB Conc 33.3 31.0 - 35.0 g/dl [facility] Red Cell Distribution Width 13.8 11.0 - 16.0 % [facility] Platelet Count 276 160 - 400 X10*3/uL [facility] Mean Platelet Volume 8.4(L) 9.4 - 12.3 fL [facility] Neutrophils Percent Auto 77.8(H) 45 - 73 % [facility] Imm Gran Pct Auto 0.3 0.0 - 0.4 % [facility] Lymphocytes Percent Auto 16.0(L) 20 - 40 % [facility] Monocytes Percent Auto 5.3 2 - 11 % [facility] Eosinophils Percent Auto 0.0 0 - 4 % [facility] Basophils Percent Auto 0.6 0 - 2 % [facility] NRBC Pct Auto 0.0 0.0 - 0.2 /100WBC [facility] Neutrophils Absolute Auto 5.6 2.0 - 8.3 x10*3/uL [facility] Imm Gran Abs Auto 0.02 0.00 - 0.03 X10*3/uL [facility] Lymphocytes Absolute Auto 1.2 1.2 - 4.9 X10*3/uL [facility] Monocytes Absolute Auto 0.4 0.1 - 1.2 X10*3/uL [facility] Eosinophils Absolute Auto 0.0 0.0 - 0.4 X10*3/uL [facility] Basophils Absolute Auto 0.0 0.0 - 0.2 X10*3/uL [facility] NRBC Abs Auto 0.000 0.0 - 0.012 X10*3/uL [facility] 11/07/2025 12:2 9 AM EST 11/07/2025 12:31 AM EST us Generic External Data Provider LAB BLOOD ORDERAB LES Final Result [facility] [address] [place] [address] [phone] documented in this encounter Visit Diagnoses Not on filedocumented in this encounter Additional Health Concerns Assessment Noted Time PHQ-9 Depression Total Score: 3 04/29/20 25 9:41 AM EDT documented as of this encounter Care Teams Mental Health Technician Relationship Specialty Start Date End Date Name, MD Nitin [address] [place] [address] PCP - General Family Medicine 08/26/17 [facility] 09/01/24 documented as of this encounter
--- OUTSIDE RECORDS SUMMARY | 2025-11-07 06:22 | XMS_ITS | Encounter Summary ---
Author Organization [employer] Address [address] [facility] [address] [place] [address] Care Team Providers Care Manager Art Name Role Phone Name, Nitin PIKE Primary Care Provider [phone] Reason for Visit * Reason Onset Date Comments triage 12/18/2022 Encounter Details Date Type Department Care Team ([facility] st Contact Info) Description 12/18/2022 Telephone [facility] [address] [place], [place] [phone] Name, MD Nitin [address] [place] [address] triage Social History Tobacco Use Types Packs/Day [...] 12/18/2022 2:35 PM EST Called pt. [facility] homeopathic doctor [phone] Eduardo. Pt. States that she has a [...] phone. Please reach out to pt. With Surinamese speaking another time to see what her [...] [facility] [address] [place] [address] Name, MD Nitin [address] [place] [address] documented as of this encounter Visit Diagnoses Not on filedocumented in this encounter Care Teams Manager Art Relationship Specialty Start Date End Date Name, MD Nitin [address] [place] [address] PCP - General Family Medicine 08/26/17 [facility] 09/01/24 documented as of this encounter
--- OUTSIDE RECORDS SUMMARY | 2025-11-07 06:22 | XMS_ITS | Encounter Summary ---
Author Organization [employer] Address [address] [facility] [address] [place] [address] Care Team Providers Care Casualty Underwriter Name Role Phone Name, Nitin PIKE Primary Care Provider [phone] Reason for Visit * Reason Onset Date Comments Durable Medical Equipment 12/09/2023 Encounter Details Date Type Department Care Team ([facility] st Contact Info) Description 12/09/2023 Telephone [facility] [address] [place], [place] [phone] Name, MD Nitin [address] [place], [place] [phone] Durable Medical Equipment Social History Tobacco Use [...] 12/09/2023 4:58 PM EST Call returned to [facility] at [facility] [phone] ext. [phone]. [facility] states that [facility] attempted to provide PT at home but pt refused. [facility] pt is requesting outpatient PT. [facility] pt is seeing a counselor more regularly and has agreed to VNA referral. Reports pt has had 3 falls in the past 2 months. [facility] states [facility] no longer has visiting nurses. [facility] recommends [facility] or [facility] for VNA referral. [facility] also requesting DME rx for rollator walker and a straight cane. Requests that DME rx be faxed to [phone]. Advised requests will be sent to pcp. * Telephone Encounter - Adithya Solorzano - 12/09/2023 4:25 PM EST Tc from [facility] requesting DME: Rollator walker . documented in this encounter Plan of Treatment Upcoming Encounters Date Type Department Care Team (Late st Contact Info) Description 11/07/2025 10:00 AM EST Office Visit [facility] [address] [place] [address] Name, MD Nitin [address] [place] [address] documented as of this encounter Visit Diagnoses Not on filedocumented in this encounter Additional Health Concerns Assessment Noted Time PHQ-9 Depression Total Score: 12 023 9:37 AM EDT documented as of this encounter Care Teams Casualty Underwriter Relationship Specialty Start Date End Date Name, MD Nitin [facility] [place] [address] PCP - General Family Medicine 08/26/17 [facility] 09/01/24 documented as of this encounter
--- OUTSIDE RECORDS SUMMARY | 2025-11-07 06:22 | XMS_ITS | Clinical Summary ---
Author Organization [facility] Facility Address [address] [address] Care Team Providers Care Digital Media Associate Name Role Phone Name, Nitin PIKE Primary Care Provider [phone] Allergies Active Allergy Reactions Criticality Noted Date [...] patient's age to complete this topic [place] [address] MCR ([id number]) [place] [phone] [facility] MCR ([id number]) Care Teams Digital Media Associate Relationship Specialty Start Date End Date Name, MD Nitin [address] [place] [address] PCP - General Internal Medicine 10/15/22
--- OUTSIDE RECORDS SUMMARY | 2025-11-07 06:22 | XMS_ITS | Encounter Summary ---
Author Organization [employer] Address [address] [facility] [address] [place] [address] Care Team Providers Care Tank Truck Engine Mechanic Name Role Phone Name, Nitin PIKE Primary Care Provider [phone] Reason for Visit * Reason Comments Med Refill Encounter Details Date Type Department Care Team ([facility] st Contact Info) Description 06/28/2024 Refill [facility] [address] [place], [place] [phone] Mel Anguiano FNP [address] [place] [address] Social History Tobacco Use Types Packs/Day Years [...] [facility] [address] [place] [address] Name, MD Nitin [address] [place] [address] documented as of this encounter Visit Diagnoses Not on filedocumented in this encounter Additional Health Concerns Assessment Noted Time PHQ-9 Depression Total Score: 6 02/13/20 24 9:14 AM EDT documented as of this encounter Care Teams Tank Truck Engine Mechanic Relationship Specialty Start Date End Date Name, MD Nitin [address] [place] [address] PCP - General Family Medicine 08/26/17 [facility] 09/01/24 documented as of this encounter
--- OUTSIDE RECORDS SUMMARY | 2025-11-07 06:22 | XMS_ITS | Encounter Summary ---
Author Organization [employer] Address [address] [facility] [address] [place] [address] Care Team Providers Care Mica Miner Blasting Name Role Phone Name, Nitin PIKE Primary Care Provider [phone] Reason for Visit * Reason Onset Date Comments Hospital Follow-up 10/20/2024 Encounter Details Date Type Department Care Team ([facility] Contact Info) Description 10/20/2024 Telephone [facility] [address] [place], [place] [phone] Name, MD Nitin [address] [place] [address] Hospital Follow-up Social History Tobacco Use Types [...] pt requesting a HDF appt. Hospital: [facility] Date of admission: 10/17 Discharge date: 10/19 Diagnosed: High Blood Pressure and Fever Contact pt at [phone] *Send message to [place] Clinical Care Coordinators documented in this encounter Plan of Treatment Upcoming Encounters Date Type Department Care Team (Late st Contact Info) Description 11/07/2025 10:00 AM EST Office Visit [facility] [address] [place] [address] Name, MD Nitin [address] [place] [address] documented as of this encounter Visit Diagnoses Not on filedocumented in this encounter Additional Health Concerns Assessment Noted Time PHQ-9 Depression Total Score: 6 02/13/20 24 9:14 AM EDT documented as of this encounter Care Teams Mica Miner Blasting Relationship Specialty Start Date End Date Name, MD Nitin [address] [place] [address] PCP - General Family Medicine 08/26/17 [facility] 09/01/24 documented as of this encounter
--- OUTSIDE RECORDS SUMMARY | 2025-11-07 06:22 | XMS_ITS | Encounter Summary ---
Author Organization [employer] Address [address] [facility] [address] [place] [address] Care Team Providers Care Flexboard Operator Name Role Phone Name, Nitin PIKE Primary Care Provider [phone] Encounter Details Date Type Department Care Team (Late st Contact Info) Description 11/06/2022 Orders Only [facility] [address] [place], [place] [phone] Lisha Kelly LPN Social History Tobacco Use [...] Visit [facility] [address] [place] [address] NameNitin MD [address] [place] [address] documented as of this encounter Visit Diagnoses Not on filedocumented in this encounter Care Teams Flexboard Operator Relationship Specialty Start Date End Date Nitin Echevarria MD [address] [place] [address] PCP - General Family Medicine 08/26/17 [facility] 09/01/24 documented as of this encounter
--- OUTSIDE RECORDS SUMMARY | 2025-11-07 06:22 | XMS_ITS | Encounter Summary ---
Author Organization [employer] Address [address] [facility] [address] [place] [address] Care Team Providers Care Semiconductor Packages Leak Tester Name Role Phone Name, Nitin PIKE Primary Care Provider [phone] Reason for Visit * Reason Comments Med Refill Encounter Details Date Type Department Care Team (Late st Contact Info) Description 08/17/2025 Refill [facility] [address] [place], [place] [phone] Miryam Riley NP [address] [place], [place] [phone] Hypertension, unspecified type Social History Tobacco Use [...] EST Office Visit [facility] [address] [place] [phone] NameNitin MD [address] [place] [address] documented as of this encounter Visit Diagnoses Diagnosis Hypertension, unspecified type documented in this encounter Additional Health Concerns Assessment Noted Time PHQ-9 Depression Total Score: 3 04/29/20 25 9:41 AM EDT documented as of this encounter Care Teams Semiconductor Packages Leak Tester Relationship Specialty Start Date End Date Name, MD Nitin [address] [place] [address] PCP - General Family Medicine 08/26/17 [facility] 09/01/24 documented as of this encounter
--- OUTSIDE RECORDS SUMMARY | 2025-11-07 06:22 | XMS_ITS | Clinical Summary ---
Author Organization [facility] Address [address] [place] [address] Phone Care Team Providers Care Director Of Labor And Delivery Name Role Phone Physician, No Pcp Primary [...] 3:[address] [facility] Potassium 4.6 3.5 [...] LAB CHEMISTRY METHOD 09/22/2024 3:15 AM EST [facility] Albumin 4.2 3.2 - 5.0 g/dL LAB CHEMISTRY METHOD 09/22/2024 3:15 AM EST [facility] Total Bilirubin 0.4 0.0 - 1.4 mg/dL LAB CHEMISTRY METHOD 09/22/2024 3:15 AM EST [facility] Blood Venous blood specimen / Unknown Venipuncture / Unknown 09/22/2024 2:28 AM EST 09/22/2024 2:31 AM EST us Paul RUIZ LAB BLOOD ORDERABLES Final Resul t [facility] [address] [place] [address], from Last 3 Months or Most Recently Relevant to Health Maintenance Insurance [facility] MEDICARE Member Subscriber Plan / Payer (Ef fective 2021-Present) Name:Noreen Wing Relation to Subscriber:Self Name:Noreen Wing Payer ID:[id number] Group ID:[id number] Type:Not on file Address: [address] [address] [phone] Care Teams Director Of Labor And Delivery Relationship Specialty Start Date End Date Physician, No Pcp PCP - General 09/22/24
--- OUTSIDE RECORDS SUMMARY | 2025-11-07 06:22 | XMS_ITS | Clinical Summary ---
Author Organization [employer] Address [address] [place] [address] [address] [place] [address] Care Team Providers Care It Intern Name Role Phone Name, Nitin PIKE Primary Care Provider [phone] Allergies Active Allergy Reactions Criticality Noted Date [...] MOUTH EVERY 8 HOURS NEEDED FOR PAIN (PERSIAN LABEL) 90 tablet 025 Active omeprazole (PriLOSEC) [...] EST 2024 Diclofenac Sodium 1 % gelIndications:Ac knik right-sided low back pain without sciatica Apply [...] EST): Symptomatic measures Rest Major neurocognitive disorder ([facility]) 11/02/20 Acute otitis media 04/22/2024 Diarrhea 02/12/2024 [...] precautions advised Stage 3a chronic kidney disease ([facility]) 2022 Headache 01/02/2023 Overview (12/18/2023): Last Assessment [...] because it calms her down. I called [facility] pharmacy to attempt a med rec they instructed me that she is on med box and one week at a time prescriptions because she would break into her med boxes to take more Ambien or xanax. She is being seen by Izzy Perea at [facility]. He is aware of her behavior [...] left I received a call from the [facility] pharmacy instructing me that she was at [...] Encounters Date Type Department Care Team Description 11/07/2025 Orders Only GENERIC EXTERNAL DATA DEPARTMENT Provider, Generic External Data 10/20/2025 Refill [facility] [address] [place] [address] Name, MD Nitin 10/19/2025 Refill [facility] [address] [place], [place] [phone] Name, MD Nitin Chronic constipation; Vitamin D deficiency 10/03/2025 Orders Only GENERIC EXTERNAL DATA DEPARTMENT Provider, Generic External Data 09/29/2025 8:40 AM EST Office Visit [facility] [address] [place] [phone] Zach Javier MD Acute right-sided low back pain without sciatica (Primary Dx); Vertigo 09/29/2025 Travel 09/28/2025 Refill [facility] [address] [place] [address] Nitin Echevarria MD Vitamin D deficiency 09/27/2025 Refill [facility] [address] [place] [address] Nitin Echevarria MD 09/22/[address] [address] Nitin Echevarria MD Nurse Triage 09/22/2025 Orders Only GENERIC EXTERNAL DATA DEPARTMENT Provider, Generic External Data 09/21/[address] [address] Nitin Echevarria MD Request For Order(s); Referral 09/19/2025 Refill [facility] [address] [place] [address] Nitin Echevarria MD 09/19/2025 Orders Only GENERIC EXTERNAL DATA DEPARTMENT Provider, Generic External Data 09/18/2025 Orders Only [facility] External Provider, [facility] 09/17/2025 Orders Only GENERIC EXTERNAL DATA DEPARTMENT Provider, Generic External Data 09/09/[address] [address] Thea Warren FNP Results 09/06/2025 1:30 PM EDT Office Visit [address] [address] Thea Warren, DOOR PATCHER Acute pain of left knee (Primary Dx); Urinary frequency; Acute cystitis without hematuria 09/06/2025 Orders Only [address] [address] Teha Warren FNP 09/06/2025 Travel 09/05/[address] [address] Nitin Echevarria MD Chart Prep 09/03/2025 Orders Only GENERIC EXTERNAL DATA DEPARTMENT Provider, Generic External Data 08/30/2025 Patient Outreach [facility] [address] [place] [address] Nitin Echevarria MD Pre-visit Planning ([facility] unable to reach) 08/24/2025 Telephone [facility] [address] [place] [phone] Nitin Echevarria MD Referral 08/24/2025 Telephone [facility] [address] [place] [phone] Nitin Echevarria MD Verbal Order 08/22/2025 Orders Only [facility] External Provider, [facility] 08/18/2025 Orders Only GENERIC EXTERNAL DATA DEPARTMENT Provider, Generic External Data 08/17/2025 Refill [facility] [address] [place] [address] Nitin Echevarria MD 08/17/2025 Refill [facility] [address] [place] [phone] Miryam Riley NP Hypertension, unspecified type 08/15/2025 Refill [facility] [address] [place] [address] Nitin Echevarria MD Heartburn 08/14/2025 Refill [facility] [address] [place] [address] Nitin Echevarria MD Heartburn; Vitamin D deficiency 08/09/2025 11:15 AM EDT Office Visit [facility] [address] [place] [phone] Nitin Echevarria MD Generalized anxiety disorder with [...] Office Visit [facility] [address] [place] [address] Name, MD Nitin [address] [place] [address] Health Maintenance Due Date Last Done Comments [...] EST XR KNEE 1-2 VIEWS LEFT Routine 1:11 AM EST DRUG MONITOR, PANEL 1, SCREEN, URINE Routine 11/07/2025 12:36 AM EST URINALYSIS, COMPLETE, WITH REFLEX TO CULTURE Routine 11/07/2025 12:36 AM EST ETHANOL Routine 11/07/2025 12:29 AM EST BASIC METABOLIC PANEL Routine 11/07/2025 12:29 AM EST HEPATIC FUNCTION PANEL Routine 12:29 AM EST CBC WITH AUTO DIFFERENTIAL Routine 11/07/2025 12:29 AM EST URINALYSIS, COMPLETE, WITH REFLEX TO [...] Relevant to Health Maintenance Results * XR Hip 2 or 3 Views Left (11/07/2025 1:12 AM EST) Anatomical Region Laterality Modality Lower Extremities, Hip Left Radiograp hic Imaging 11/07/2025 1:12 AM EST Narrative 11/07/2025 1:13 AM EST [address] [address] XRay Report Signed Patient: Noreen Wing MR#: [id number] : 1945 Acct:[id number] Age/Sex: 80 / F ADM Date: 11/07/25 Loc: HO.ED Attending Dr: Ordering Physician: Marta Briscoe MD Date of Service: 11/07/25 Procedure(s): XR hip LT min 2V Accession Number(s): [id number] cc: [facility]; Marta Briscoe MD Reason for Exam: [...] in OV> 11/07/25112 DD/ 1 TD/TT: 11/07/25111 Washroom Operator: Procedure Note Donotuseinterpreter, Image - 11/07/[address] [address] XRay Report Signed Patient: Noreen WingMR#: [id number] : 1945cct:[id number] Age/Sex: 80 / FADM Date: 11/07/25 Loc: HO.ED Attending Dr: Ordering Physician: Marta Briscoe MD Date of Service: 11/07/25 Procedure(s): XR hip LT min 2V Accession Number(s): [id number] cc: [facility]; Marta Briscoe MD Reason for Exam: [...] in OV> 11/07/25112 DD/ 1 TD/TT: 11/07/25111 Washroom Operator: [facility] External Provider IMG XR PROCEDURES Final Result * XR Knee 1-2 Views Left (11/07/2025 1:11 AM EST) Anatomical Region Laterality Modality Lower Extremities, Knee Left Radiogra phic Imaging 11/07/2025 1:11 AM EST Narrative 11/07/2025 1:13 AM EST [place] [address] XRay Report Signed Patient: Noreen Wing MR#: [id number] : 1945 Acct:[id number] Age/Sex: 80 / F ADM Date: 11/07/25 Loc: HO.ED Attending Dr: Ordering Physician: Marta Briscoe MD Date of Service: 11/07/25 Procedure(s): XR knee LT 2V Accession Number(s): [id number] cc: [facility]; Marta Briscoe MD Reason for Exam: [...] in OV> 11/07/25111 DD/ 0 TD/TT: 11/07/25110 Washroom Operator: Procedure Note Donotuseinterpreter, Image - 11/07/2025 [place] [address] XRay Report Signed Patient: Jennifer Wing#: [id number] : 1945cct:[id number] Age/Sex: 80 / FADM Date: 11/07/25 Loc: HO.ED Attending Dr: Ordering Physician: Marta Briscoe MD Date of Service: 11/07/25 Procedure(s): XR knee LT 2V Accession Number(s): [id number] cc: [facility]; Marta Briscoe MD Reason for Exam: [...] in OV> 11/07/25111 DD/ 0 TD/TT: 11/07/25110 Washroom Operator: [facility] External Provider IMG XR PROCEDURES Final Result * (ABNORMAL) Urinalysis, Complete, with Reflex to Culture (11/07/2025 12:36 AM EST) Only the most recent of3 resultswithin the time period is included. Color Urine Yellow [facility] Appearance Urine Clear [facility] PH 5.0 5.0 - 9.0 [facility] Glucose Urine UA Negative Negative mg/dL [facility] Urine Blood Negative Negative [facility] Specific Hominy - Urine 1.020 1.005 - 1.025 [facility] Urine Protein Negative Neg-Trace mg/dL [facility] Urine Ketones Trace Negative mg/dL [facility] Nitrite Urine Negative Negative [facility] Leukocyte Esterase Urine Small (1+)(A) Negative [facility] RBC Urine 0-2 0 - 2 /HPF [facility] Urine WBC 6-10(A) 0 - 5 /HPF [facility] Urine Squamous Epithelial Cell 0-2 0 - 2 /HPF [facility] Urine Bacteria None Seen None Seen [facility] Hyaline Casts, Urine 0-2 0 - 2 /LPF [facility] 11/07/2025 12:3 6 AM EST 11/07/2025 12:39 AM EST Narrative [facility] - 11/07/2025 12:44 AM EST Urine, Clean Catch us Generic External Data Provider LAB URINE ORDERAB LES Final Result [facility] [address] [place] [phone] * Drug Monitoring, Panel 1, Screen, Urine (11/07/2025 12:36 AM EST) Opiate Screen Urine Not Detected Not Detect [facility] Comment:Opiate cut-off is 30 0 ng/mL.Positive results are unconfirmed and should not be used fornon-medical purposes. Barbiturates, Urine Not Detected Not Detect [facility] Comment:Barbiturate cut-off is 200 ng/mL.Positive results are unconfirmed and should not be used fornon-medical purposes. Phencyclidine Screen Urine Not Detected Not Detect [facility] Comment:Phencyclidine cut-of f is 25 ng/mL.Positive results are unconfirmed and should not be used fornon-medical purposes. Amphetamine Screen Urine Not Detected Not Detect [facility] Comment:Amphetamine cut-off is 1000 ng/mL.Positive results are unconfirmed and should not be used fornon-medical purposes. Benzodiazepines Screen Urine Not Detected Not Detect [facility] Comment:Benzodiazepine cut-o ff is 200 ng/mL.Positive results are unconfirmed and should not be used fornon-medical purposes. Cocaine Screen Urine Not Detected Not Detect [facility] Comment:Cocaine cut-off is 3 00 ng/mL.Positive results are unconfirmed and should not be used fornon-medical purposes. Cannabinoid Screen Urine Not Detected Not Detect [facility] Comment:Cannabinoid cut-off is 50 ng/mL.Positive results are unconfirmed and should not be used fornon-medical purposes. Methadone Screen, Urine Not Detected Not Detect ng/mL [facility] Comment:Methadone cut-off is 300 ng/mL.Positive results are unconfirmed and should not be used fornon-medical purposes. FENTANYL URINE Not Detected Not Detect [facility] Comment:Fentanyl cut-off is 1 ng/mL.Positive results are unconfirmed and should not be used fornon-medical purposes. Oxycodone Urine Screen Not Detected Not Detect ng/mL [facility] Comment:Oxycodone cut-off is 100 ng/mL.Positive results are unconfirmed and should not be used fornon-medical purposes. Buprenorphine Screen Not Detected Not Detect ng/mL [facility] Comment:Buprenorphine cut-of f is 5 ng/mL.Positive results are unconfirmed and should not be used fornon-medical purposes. 11/07/2025 12:3 6 AM EST 11/07/2025 12:39 AM EST us Generic External Data Provider LAB URINE ORDERAB LES Final Result [facility] [address] [place] [address] [phone] * Ethanol (11/07/2025 12:29 AM EST) ETHANOL (MG/DL) IN SER/PLAS <10 mg/dL [facility] Comment:Serum/plasma ethanol results are to be used formedical/treatment purposes only. 11/07/2025 12:2 9 AM EST 11/07/2025 12:31 AM EST us Generic External Data Provider LAB BLOOD ORDERAB LES Final Result [facility] [address] [place] [address] [phone] * (ABNORMAL) CBC auto differential (11/07/2025 12:29 AM EST) Only the most recent of4 resultswithin the time period is included. Pathologist [facility] White Blood Count 7.2 4.8 - 10.8 X10*3/uL [facility] Red Blood Count 4.32 4.20 - 5.50 X10*6/uL [facility] Hemoglobin 11.9(L) 12.0 - 16.0 g/dl [facility] Hematocrit 35.7(L) 37.0 - 47.0 % [facility] Mean Corpuscular Volume 82.6 80.0 - 98.0 fL [facility] Mean Corpuscular Hemoglobin 27.5 27.0 - 33.0 pg [facility] Mean Corpuscular HGB Conc 33.3 31.0 - 35.0 g/dl [facility] Red Cell Distribution Width 13.8 11.0 - 16.0 % [facility] Platelet Count 276 160 - 400 X10*3/uL [facility] Mean Platelet Volume 8.4(L) 9.4 - 12.3 fL [facility] Neutrophils Percent Auto 77.8(H) 45 - 73 % [facility] Imm Gran Pct Auto 0.3 0.0 - 0.4 % [facility] Lymphocytes Percent Auto 16.0(L) 20 - 40 % [facility] Monocytes Percent Auto 5.3 2 - 11 % [facility] Eosinophils Percent Auto 0.0 0 - 4 % [facility] Basophils Percent Auto 0.6 0 - 2 % [facility] NRBC Pct Auto 0.0 0.0 - 0.2 /100WBC [facility] Neutrophils Absolute Auto 5.6 2.0 - 8.3 x10*3/uL [facility] Imm Gran Abs Auto 0.02 0.00 - 0.03 X10*3/uL [facility] Lymphocytes Absolute Auto 1.2 1.2 - 4.9 X10*3/uL [facility] Monocytes Absolute Auto 0.4 0.1 - 1.2 X10*3/uL [facility] Eosinophils Absolute Auto 0.0 0.0 - 0.4 X10*3/uL [facility] Basophils Absolute Auto 0.0 0.0 - 0.2 X10*3/uL [facility] NRBC Abs Auto 0.000 0.0 - 0.012 X10*3/uL [facility] 11/07/2025 12:2 9 AM EST 11/07/2025 12:31 AM EST us Generic External Data Provider LAB BLOOD ORDERAB LES Final Result [facility] [address] [place] [phone] * (ABNORMAL) Hepatic Function Panel (11/07/2025 12:29 AM EST) Bilirubin, Total 0.5 0.0 - 1.0 mg/dL [facility] Bilirubin, Direct 0.2 0.0 - 0.5 mg/dL [facility] Aspartate Amino Transferase 28 5 - 31 U/L [facility] Alanine Aminotransferase 11 0 - 31 U/L [facility] Total Protein 8.1(H) 6.5 - 8.0 g/dL [facility] Albumin Level 4.5 3.5 - 5.0 g/dL [facility] Alkaline Phosphatase 92 39 - 117 U/L [facility] 11/07/2025 12:2 9 AM EST 11/07/2025 12:31 AM EST us Generic External Data Provider LAB BLOOD ORDERAB LES Final Result Performing Organization Address City/[facility]/ZIP Co de Phone Number [facility] [address] [place] [address] [phone] * (ABNORMAL) Basic Metabolic Panel (11/07/2025 12:29 AM EST) Only the most recent of3 resultswithin the time period is included. Sodium 135 135 - 145 mmol/L [facility] Potassium 3.9 3.3 - 5.1 mmol/L [facility] Chloride 101 96 - 108 mmol/L [facility] Carbon Dioxide 23 22 - 29 mmol/L [facility] Anion Gap 15 12 - 20 [facility] Urea Nitrogen (BUN) 20(H) 9 - 16 mg/dL [facility] Creatinine, Serum 1.01 0.5 - 1.4 mg/dL [facility] Creatinine Clr Calc Pharmacy 44.0 [facility] Comment:Provided height and weight: 165.1 cm,77.111 kg.eGFR (calculated from the MDRD study equation) and eCrCl(calculated from the Cockcroft-Gault equation) are based ondifferent parameters and may not yield comparable results.If eCrCl result is absurd, please check patient'sheight/weight. Estimated Glomerular Filt Rate 52 [facility] Comment:Chronic Kidney Disea se: Estimated GFR < 60 mL/min/1.24z1Etpezq Kidney Disease: Estimated GFR < 15 mL/min/1.73m2 Glucose 112 60 - 115 mg/dL [facility] Calcium 9.6 8.4 - 10.2 mg/dL [facility] 11/07/2025 12:2 9 AM EST 11/07/2025 12:31 AM EST us Generic External Data Provider LAB BLOOD ORDERAB LES Final Result [facility] [address] [place] [phone] * Culture, Urine, Routine (10/03/2025 12:00 AM EST) Only the most recent of3 resultswithin the time period is included. Urine Urine specimen obtained by clean catch procedure / Unknown 10/03/2025 10/03/2025 Comment:UACC Narrative [facility] - 10/05/2025 11:28 AM EST Urine Culture Report Result Urine Culture 10,000 to 50,000 cfu/ml Urine Culture Mixed bacterial jann characteristic of Urine Culture urogenital contamination. Specimen Source: Urine clean catch us Generic External Data Provider LAB MICROBIOLOGY - GENERAL ORDERABLES Final Result Performing Organization Address [facility] de Phone Number [facility] [address] [place] [phone] * CT Head w/o Contrast (09/19/2025 3:43 AM EST) Only the most recent of2 resultswithin the time period is included. Anatomical Region Laterality Modality Head, Neck Computed Tomogra phy 09/19/2025 3:43 AM EST Narrative 09/19/2025 3:45 AM EST [address] [address] [address] Scan Report Signed Patient: Noreen Wing MR#: [id number] : 1945 Acct:[id number] Age/Sex: 79 / F ADM Date: 09/18/25 Loc: HO.ED Attending Dr: Ordering Physician: Marium Ny DO Date of Service: 09/19/25 Procedure(s): CT head/brain wo IV con Accession Number(s): [id number] cc: Marium Ny DO; [facility] Report Number: [id number]: Total DLP = 747.02 mGy-cm Reason for [...] in OV> 09/19/25343 DD/ 2 TD/TT: 09/19/25342 Washroom Operator: Procedure Note Donotuseinterpreter, Image - 09/19/[address] [place] [address] [address] Scan Report Signed Patient: Noreen WingMR#: [id number] : 1945cct:[id number] Age/Sex: 79 / FADM Date: 09/18/25 Loc: HO.ED Attending Dr: Ordering Physician: Marium Ny DO Date of Service: 09/19/25 Procedure(s): CT head/brain wo IV con Accession Number(s): [id number] cc: Marium Ny DO; [facility] Report Number: [id number]: Total DLP = 747.02 mGy-cm Reason for [...] in OV> 09/19/25343 DD/ 2 TD/TT: 09/19/25342 Washroom Operator: [facility] External Provider IMG CT PROCEDURES Edited Result - Final * CT Cervical Spine w/o Contrast (09/19/2025 3:42 AM EST) Only the most recent of2 resultswithin the time period is included. Anatomical Region Laterality Modality Spine, C-spine Computed Tomogra phy 09/19/2025 3:42 AM EST Narrative 09/19/2025 3:43 AM EST [place] [address] CT Scan Report Signed Patient: Noreen Wing MR#: [id number] : 1945 Acct:[id number] Age/Sex: 79 / F ADM Date: 09/18/25 Loc: HO.ED Attending Dr: Ordering Physician: Marium Ny DO Date of Service: 09/19/25 Procedure(s): CT cervical spine wo IV con Accession Number(s): [id number] cc: Marium Ny DO; [facility] Report Number: [id number]: Total DLP = 428.77 mGy-cm Reason for Exam: fall, head trauma CLINICAL HISTORY: fall, head trauma CT cervical spine without contrast Comparison: CT/SR - CT CERVICAL SPINE WO IV CON - 09/03/25 13:35 EDT Findings: The alignment of the cervical spine is normal. There is no fracture. There is wqgj-lf-mrryhzhv C5-6 degenerative disc disease. There are posterior osteophytes at C5-6 probably causing nvex-js-aupfyjgw central canal stenosis. There is multilevel facet [...] in OV> 09/19/25341 DD/ 1 TD/TT: 09/19/25341 Washroom Operator: Procedure Note Donotnorahinterpreter, Image - 09/19/[address] [place] [address] [address] Scan Report Signed Patient: Noreen WingMR#: [id number] : 3Acct:[id number] Age/Sex: 79 / FADM Date: 09/18/25 Loc: HO.ED Attending Dr: Ordering Physician: Marium Ny DO Date of Service: 09/19/25 Procedure(s): CT cervical spine wo IV con Accession Number(s): [id number] cc: Marium Ny DO; [facility] Report Number: [id number]: Total DLP = 428.77 mGy-cm Reason for Exam: fall, head trauma CLINICAL HISTORY: fall, head trauma CT cervical spine without contrast Comparison: CT/SR - CT CERVICAL SPINE WO IV CON - 09/03/25 13:35 EDT Findings: The alignment of the cervical spine is normal. There is no fracture. There is inxu-tn-nmrvhvuz C5-6 degenerative disc disease. There are posterior osteophytes at C5-6 probably causing epth-uj-vqllvofj central canal stenosis. There is multilevel facet [...] in OV> 09/19/25341 DD/ 1 TD/TT: 09/19/25341 Washroom Operator: [facility] External Provider IMG CT PROCEDURES Edited Result - Final * High Sensitivity Troponin I (09/19/2025 12:26 AM EST) Only the most recent of2 resultswithin the time period is included. TROPONIN I HIGH SENSITIVITY <2.7 <3.5 - 17.0 ng/L [facility] Comment:The Mckeon high sens itivity Troponin-I results should beused in conjunction with other diagnostic information suchas ECG, clinical observations and information, and patientsymptoms to aid in the diagnosis of NV. 09/19/2025 12:2 6 AM EST 09/19/2025 12:28 AM EST Generic External Data Provider LAB BLOOD ORDERAB LES Final Result Performing Organization Address [facility] Co de Phone Number [facility] [address] [place] [phone] * Prothrombin Time-INR (09/19/2025 12:26 AM EST) Prothrombin Time 12.5 11.2 - 13.5 SEC [facility] INTERNATIONAL NORM RATIO 1.0 0.9 - 1.1 [facility] Comment:INTERNATIONAL NORMAL IZED RATIO (INR) REFERENCE [...] 6 AM EST 09/19/2025 12:28 AM EST [employer] External Data Provider LAB BLOOD ORDERAB LES Final Result Performing Organization Address [facility] Co de Phone Number [facility] [address] [place] [phone] * (ABNORMAL) Comprehensive Metabolic Panel (09/19/2025 12:26 AM EST) Only the most recent of2 resultswithin the time period is included. Sodium 136 135 - 145 mmol/L [facility] Potassium 4.1 3.3 - 5.1 mmol/L [facility] Chloride 101 96 - 108 mmol/L [facility] Carbon Dioxide 25 22 - 29 mmol/L [facility] Anion Gap 14 12 - 20 [facility] Urea Nitrogen (BUN) 33(H) 9 - 16 mg/dL [facility] Creatinine, Serum 0.99 0.5 - 1.4 mg/dL [facility] Creatinine Clr Calc Pharmacy 45.4 [facility] Comment:Provided height and weight: 157.48 cm,86.183 kg.eGFR (calculated from the MDRD study equation) and eCrCl(calculated from the Cockcroft-Gault equation) are based ondifferent parameters and may not yield comparable results.If eCrCl result is absurd, please check patient'sheight/weight. Estimated Glomerular Filt Rate 54 [facility] Comment:Chronic Kidney Disea se: Estimated GFR < 60 mL/min/1.22r0Psvyhf Kidney Disease: Estimated GFR < 15 mL/min/1.73m2 Glucose 108 60 - 115 mg/dL [facility] Calcium 8.9 8.4 - 10.2 mg/dL [facility] Bilirubin, Total 0.3 0.0 - 1.0 mg/dL [facility] Aspartate Amino Transferase 26 5 - 31 U/L [facility] Alanine Aminotransferase 14 0 - 31 U/L [facility] Total Protein 7.6 6.5 - 8.0 g/dL [facility] Albumin Level 4.1 3.5 - 5.0 g/dL [facility] Alkaline Phosphatase 92 39 - 117 U/L [facility] 09/19/2025 12:2 6 AM EST 09/19/2025 12:28 AM EST us Generic External Data Provider LAB BLOOD ORDERAB LES Final Result [facility] [address] [place] [address] [phone] * XR Knee 4+ Views Left (09/18/2025 3:36 PM EST) Only the most recent of2 resultswithin the time period is included. Anatomical Region Laterality Modality Lower Extremities, Knee Left Radiogra phic Imaging 09/18/2025 3:36 PM EST Narrative 09/18/2025 3:39 PM EST [address] [address] XRay Report Signed Patient: Noreen Wing MR#: [id number] : 1945 Acct:[id number] Age/Sex: 79 / F ADM Date: 09/18/25 Loc: HO.ED Attending Dr: Ordering Physician: Cuco Amador Date of Service: 09/18/25 Procedure(s): XR knee LT 4V Accession Number(s): [id number] cc: Cuco Amador; Name,Nitin PIKE Reason for [...] 09/18/25 1538 DD/ 1536 TD/TT: 09/18/25 1536 Washroom Operator: Procedure Note Donotuseinterpreter, Image - 09/18/[address] [address] XRay Report Signed Patient: Noreen WingMR#: [id number] : 1945cct:[id number] Age/Sex: 79 / FADM Date: 09/18/25 Loc: HO.ED Attending Dr: Ordering Physician: Cuco Amador Date of Service: 09/18/25 Procedure(s): XR knee LT 4V Accession Number(s): [id number] cc: Cuco Amador; Name,Nitin PIKE Reason for [...] OV> 09/18/25 1538 DD/ 35 TD/TT: 09/18/251535 Washroom Operator: [facility] External Provider IMG XR PROCEDURES Edited Result - Final * Glucose, Whole Blood (09/17/2025 7:24 AM EST) Glucose, Whole Blood 98 60 - 115 mg/dL [facility] Comment:METER #: [id number] 09/17/2025 7:24 AM EST 09/17/2025 7:28 AM EST Generic External Data Provider LAB BLOOD ORDERAB LES Final Result [facility] [address] [place] [phone] * POCT Urinalysis (09/06/2025 1:32 PM [...] Random) 09/06/2025 1:32 PM EDT Thea Warren DOOR PATCHER POINT OF CARE TEST ENTER/EDIT ORDERABLES Final Result * Magnesium (09/03/2025 2:08 PM EDT) Pathologist [facility] Magnesium 2.0 1.6 - 2.6 mg/dL [facility] 09/03/2025 2:08 PM EDT 09/03/2025 2:12 PM EDT Generic External Data Provider LAB BLOOD ORDERAB LES Final Result Performing Organization Address City/State/[facility] Co de Phone Number [facility] [address] [place] [phone] * POCT HGB A1C (01/10/2025 11:02 AM EST) Pathologist [facility] Hemoglobin A1C 5.1 4.0 - 6.0 % [...] LDL-C. Jack RAYO et al. JITENDRA. 2013;310(19): 2566-7061 (http://education.[employer].com/faq/QYX594) Non-HDL Cholesterol 88 <130 mg/dL (calc) CONVERTED [...] Most Recently Relevant to Health Maintenance Insurance [facility] [employer] (HMO D-SNP) [place]IPS [id number] Care Teams It Intern Relationship Specialty Start Date End Date Name, MD Nitin [address] [facility] [place] [address] PCP - General Family Medicine 08/26/17 [facility] 09/01/24
--- OUTSIDE RECORDS SUMMARY | 2025-11-07 06:22 | XMS_ITS | Encounter Summary ---
Author Organization [employer] Address [address] [facility] [address] [place] [address] Care Team Providers Care Life Sciences Teacher Name Role Phone Name, Nitin PIKE Primary Care Provider [phone] Encounter Details Date Type Department Care Team ([facility] Contact Info) Description 08/08/[address] [facility] [address] [place] [address] [phone] Name, MD Nitin [address] [place] [address] [phone] Social History Tobacco Use Types Packs/Day Years [...] EST Office Visit [facility] [address] [place] [address] [phone] Name, MD Nitin [address] [place] [address] [phone] documented as of this encounter Visit Diagnoses Not on filedocumented in this encounter Additional Health Concerns Assessment Noted Time PHQ-9 Depression Total Score: 12 023 9:37 AM EDT documented as of this encounter Care Teams Life Sciences Teacher Relationship Specialty Start Date End Date Name, MD Nitin [address] [place] [address] PCP - General Family Medicine 08/26/17 [facility] 09/01/24 documented as of this encounter
--- OUTSIDE RECORDS SUMMARY | 2025-11-07 06:22 | XMS_ITS | Encounter Summary ---
Author Organization [employer] Address [address] [facility] [address] [place] [address] Care Team Providers Care Greenhouse Assistant Name Role Phone Name, Nitin PIKE Primary Care Provider [phone] Reason for Visit * Reason Onset Date Comments Referral 08/24/2025 Encounter Details Date Type Department Care Team ([facility] st Contact Info) Description 08/24/2025 Telephone [facility] [address] [place], [place] [phone] Name, MD Nitin [address] [place] [address] Referral Social History Tobacco Use Types Packs/Day [...] DATE: 09/21/25 TIME: 10 am Facility Name: [facility] PT Type of Specialist: Physical therapy Facility Phone # : [phone] Fax #: [phone] documented in this encounter Plan of Treatment Upcoming Encounters Date Type Department Care Team (Late st Contact Info) Description 11/07/2025 10:00 AM EST Office Visit [facility] [address] [place], [place] [phone] Name, MD Nitin [address] [place] [address] documented as of this encounter Visit Diagnoses Not on filedocumented in this encounter Additional Health Concerns Assessment Noted Time PHQ-9 Depression Total Score: 3 04/29/20 9:41 AM EDT documented as of this encounter Care Teams Greenhouse Assistant Relationship Specialty Start Date End Date Name, MD Nitin [address] [place] [address] PCP - General Family Medicine 08/26/17 [facility] 09/01/24 documented as of this encounter
--- OUTSIDE RECORDS SUMMARY | 2025-11-07 06:22 | XMS_ITS | Encounter Summary ---
Author Organization [employer] Address [address] [facility] [address] [place] [address] Care Team Providers Care Call Center Operations Manager Name Role Phone Name, Nitin PIKE Primary Care Provider Reason for Visit * Reason Onset Date Comments Order(s) 12/09/2023 Encounter Details Date Type Department Care Team ([facility] Contact Info) Description 12/09/2023 Telephone [facility] [address] [place], [place] [phone] Name, MD Nitin [address] [place], [place] [phone] Order(s) Social History Tobacco Use Types Packs/Day [...] orders. If any questions please contact Noreen [phone]. documented in this encounter Plan of Treatment Upcoming Encounters Date Type Department Care Team (Late st Contact Info) Description 11/07/2025 10:00 AM EST Office Visit [facility] [address] [place] [phone] Name, MD Nitin [address] [place] [address] documented as of this encounter Visit Diagnoses Not on filedocumented in this encounter Additional Health Concerns Assessment Noted Time PHQ-9 Depression Total Score: 12 023 9:37 AM EDT documented as of this encounter Care Teams Call Center Operations Manager Relationship Specialty Start Date End Date Name, MD Nitin [address] [place] [phone] PCP - General Family Medicine 08/26/17 [facility] 09/01/24 documented as of this encounter
--- OUTSIDE RECORDS SUMMARY | 2025-11-07 06:22 | XMS_ITS | Encounter Summary ---
Author Organization [employer] Address [address] [facility] [address] [place] [address] Care Team Providers Care Talent Coordinator Name Role Phone Name, Nitin PIKE Primary Care Provider [phone] Reason for Visit * Reason Onset Date Comments Results 08/29/2023 Encounter Details Date Type Department Care Team ([facility] st Contact Info) Description 08/29/2023 Telephone [facility] [address] [place], [place] [phone] Name, MD Nitin [address] [place] [address] Results Social History Tobacco Use Types Packs/Day [...] 09/01/2023 11:51 AM EDT Pt evaluated in [facility] today and is scheduled with pcp 09/03/23. * Telephone Encounter - Janette Huitron - 08/29/2023 4:06 PM EDT Tc from pt requesting a call in regards to urine results. Please contact pt at [phone] (Wol[place]) documented in this encounter Plan of Treatment Upcoming Encounters Date Type Department Care Team (Late st Contact Info) Description 11/07/2025 10:00 AM EST Office Visit [facility] [address] [place] [phone] Name, MD Nitin [address] [place] [phone] documented as of this encounter Visit Diagnoses Not on filedocumented in this encounter Additional Health Concerns Assessment Noted Time PHQ-9 Depression Total Score: 12 023 9:37 AM EDT documented as of this encounter Care Teams Talent Coordinator Relationship Specialty Start Date End Date Name, MD Nitin [address] [place] [phone] PCP - General Family Medicine 08/26/17 [facility] 09/01/24 documented as of this encounter
--- OUTSIDE RECORDS SUMMARY | 2025-11-07 06:22 | XMS_ITS | Encounter Summary ---
Author Organization [employer] Address [address] [facility] [address] [place] [address] Care Team Providers Care Press Operator Meat Name Role Phone Name, Nitin PIKE Primary Care Provider [phone] Reason for Visit * Reason Onset Date Comments Verbal Orders 01/02/2024 Encounter Details Date Type Department Care Team ([facility] st Contact Info) Description 01/02/2024 Telephone [facility] [address] [place], [place] [phone] Name, MD Nitin [address] [place] [address] Verbal Orders Social History Tobacco Use Types [...] No answer. LVM to call back on [phone]. * Telephone Encounter - Melany Santos RN - 01/06/2024 10:25 AM EST Please review and advise for below request. * Telephone Encounter - Deana Bazzi - 01/02/2024 3:44 PM EST Tc from [facility] with S requesting verbal orders for discharge pt from Occupational Therapy, due to pt refuses services, please contact Joss[facility] at [phone]. documented in this encounter Plan of Treatment Upcoming Encounters Date Type Department Care Team (Late st Contact Info) Description 11/07/2025 10:00 AM EST Office Visit [facility] [address] [place] [phone] Name, MD Nitin [address] [place] [address] documented as of this encounter Visit Diagnoses Not on filedocumented in this encounter Additional Health Concerns Assessment Noted Time PHQ-9 Depression Total Score: 12 023 9:37 AM EDT documented as of this encounter Care Teams Press Operator Meat Relationship Specialty Start Date End Date Name, MD Nitin [address] [place] [phone] PCP - General Family Medicine 08/26/17 [facility] 09/01/24 documented as of this encounter
--- OUTSIDE RECORDS SUMMARY | 2025-11-07 06:22 | XMS_ITS | Encounter Summary ---
Author Organization [email or web address] Address [address] [facility] [address] [place] [address] Care Team Providers Care Allied Health Teacher Name Role Phone Name, Nitin PIKE Primary Care Provider [phone] Encounter Details Date Type Department Care Team (Late st Contact Info) Description 05/26/2023 Orders Only [facility] [address] [place] [address] [phone] Noreen Fox MD [address] [place] [address] [phone] Social History Tobacco Use Types Packs/Day Years [...] Description 11/07/2025 10:00 AM EST Office Visit [facility] [address] [place] [phone] NameNitin MD [address] [place] [address] documented as of this encounter Visit Diagnoses Not on filedocumented in this encounter Care Teams Allied Health Teacher Relationship Specialty Start Date End Date Name, MD Nitin [address] [place] [address] PCP - General Family Medicine 08/26/17 [facility] 09/01/24 documented as of this encounter
--- NOTE | 2025-11-07 06:34 | PC.NURSE ---
Pt return to hospital 5x in 24 hours, pt sectioned and daughter called by provider to address behavior. Pt manager change belongs placed in [facility]
--- NOTE | 2025-11-07 06:44 | PC.NURSE ---
elopement band in place
--- NOTE | 2025-11-07 07:10 | PC.NURSE ---
report given to VARGAS [place]
--- NOTE | 2025-11-07 07:30 | PC.NURSE ---
report taken from previous rn. pt is caox4, she is imploring staff to let her go home, plan of care was reinforced with fani and sge was medicated at her request. she ambulated with brisk steady gait to restroom, wew are awaiting psych eval.
[2025-11-07 10:19] VITALS: BP 133/67; PULSE 78; RESP 16
--- NOTE | 2025-11-07 10:24 | PC.NURSE ---
Noreen has been persistently asking to go home despite this rn and medical staf reinforcing her plan of care which inlcudes a sect 12 and a crisis eval. she has repeatedly asked to use to the phone to call multiple family memebers, we allowed her to do this but have since placed limits on this behavior because she just calls the same family repeatedly. Noreen is pleasent but peristent in her requests, she is not viloent or threatening.
--- NOTE | 2025-11-07 12:30 | PM.EVENT ---
Documented by User: Carleen Hdz NP 11/07/25 12:32 Event Note Date of Service: 11/07/25 Event Note: Psychiatry consulted for capacity assessment. Reminded ED attending that pt had a capacity assessment back in 2023 and pt had been found as not having capacity due to major neurocognitive disorder affecting her ability to retain new information, impaired ability to plan, executive, coordinate care and manage own medications. Time Spent With Patient Time: Total time managing care of this patient today ____ minutes. Documented by User: Mayito Giles MD 11/08/25 16:47 Event Note Date of Service: 11/08/25
--- NOTE | 2025-11-07 12:46 | MHC.CARE ---
Patient evaluated by the CARE Team, she does not require an inpatient psychiatric admission at this time. ED provider, Dr. Hernandez updated.
--- NOTE | 2025-11-07 12:56 | MHC.CM.ED ---
Addendum entered by Asha Davis 11/07/25 13:10: Pt on portable ED phone with her son - ED CM requested to speak with him. Son states pt is behaving very badly and abusing the system He states she has a long hx of attention seeking behaviors and manipulation with family and care givers. Pt's dtr Robyn called back during this time and states she will be in the ED to transport pt to home. Discussed with ED MD - no need to wait for psych eval - pt can return to home w/family. Pt very pleased with d/c plan. Original Note: Received ED consult for assessment of d/c needs: pt brought to ED on a section 12 after 5 ED visits in 24 hours. Pt not a reliable historian and repeatedly asks to return to home or to speak with her dtr. Multiple calls placed to dtr/HCP Robyn by ED staff and ED CM without response. Pt has been cleared by psych for INPT placement but has an open order for a formal psych eval - pt's decision making ability needs to be assessed for likely HCP activation. ED CM unable to gain meaningful information from pt who is pleasant but requires almost constant redirection to remain on subject. ED CM to await psych eval
[2025-11-07 13:32] VITALS: BP 133/67; PULSE 78; RESP 16; TEMP 36.7; O2SAT 95
== END 2025-11-07 13:43 | disposition home or self-care (01) ==
PROVIDERS: Emergency Provider Emergency Medicine
DX: F41.1 Generalized anxiety disorder (principal); F41.0 Panic disorder [episodic paroxysmal anxiety]; M25.562 Pain in left knee; M25.552 Pain in left hip; Z79.899 Other long term (current) drug therapy; Z51.81 Encounter for therapeutic drug level monitoring
CPT/HCPCS: 36415; 73502; 73560; 80048; 80076; 80307; 81001; 85025; 87086; 99282; 99284; S9485